=== PATIENT | female | born 1960 | race Caucasian/White ===

== ENCOUNTER 2019-09-23 06:37 | Outpatient (CLI) | payer OTHER, SELFPAY ==
[2019-09-23 07:12] LABS: Hemoglobin A1C 7.2 % (<5.7)
[2019-09-23 07:53] LABS: Anion Gap 9.4 mmol/L (7-16); Blood Urea Nitrogen 18 mg/dL (7-18); Calcium 8.8 mg/dL (8.5-10.1); Carbon Dioxide 29 mmol/L (21-32); Chloride 104 mmol/L (98-108); Estimated Glomerular Filt Rate 43; Glucose 130 mg/dL (70-99); Osmolality Calculated 289 mOsm/kg (285-295); Potassium 4.4 mmol/L (3.5-5.1); Sodium 138 mmol/L (136-145)
== END 2019-09-23 06:38 | disposition home or self-care (01) ==
LOC: CHSLAB 06:39
PROVIDERS: PCP Physician Assistant; Visit Provider Physician Assistant
DX: E11.65 Type 2 diabetes mellitus with hyperglycemia (principal)
CPT/HCPCS: 36415; 80048; 83036

== ENCOUNTER 2019-12-29 12:44 | Emergency (ER) | payer OTHER, SELFPAY ==
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
[2019-12-29 12:55] VITALS: BP 176/98; PULSE 110; RESP 16; TEMP 36.2; O2SAT 100
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
[2019-12-29] MEDS: TETANUS,DIPHTHERIA,AC PERTUSSIS ADULT (0.5 ML) BOOSTRIX IM (15:05)
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
[2019-12-29 16:08] VITALS: BP 170/111; PULSE 117; RESP 12; O2SAT 99
[2019-12-29] MEDS: cloNIDine HCL 0.1 MG TABLET PO (16:08)
[2019-12-29 16:15] VITALS: BP 160/100; PULSE 70; RESP 14; O2SAT 99
--- NOTE | 2019-12-29 16:45 | PC.NURSE ---
FACIAL BONES,CERVICAL SPINE AND BRAIN CT ORDERED BY COTY FRANK MD
== END 2019-12-29 16:15 | disposition home or self-care (01) ==
PROVIDERS: Emergency Provider Emergency Medicine; PCP Family Medicine
DX: S06.0X0A Concussion without loss of consciousness, initial encounter (principal); S01.81XA Laceration without foreign body of other part of head, initial encounter; V43.52XA Car driver injured in collision with other type car in traffic accident, initial encounter; Z23 Encounter for immunization
CPT/HCPCS: 12015; 70450; 70486; 72125; 90471; 90715; 99284; A9270

== ENCOUNTER 2020-03-31 07:15 | Outpatient (CLI) | payer OTHER, SELFPAY ==
[2020-03-31 08:25] LABS: Hemoglobin A1C 7.3 % (<5.7)
[2020-03-31 08:37] LABS: Alanine Aminotransferase 26 U/L (14-59); Alkaline Phosphatase 91 U/L (46-116); Anion Gap 9 mmol/L (8-16); Aspartate Amino Transferase 16 U/L (15-37); Bilirubin,Total 0.5 mg/dL (0.00-1.00); Blood Urea Nitrogen 21 mg/dL (7-18); Calcium 8.7 mg/dL (8.5-10.1); Carbon Dioxide 28 mmol/L (21-32); Chloride 102 mmol/L (98-108); Cholesterol 166 mg/dL (0-200); Estimated Glomerular Filt Rate 45; Glucose 154 mg/dL (70-99); HDL Direct 36 mg/dL (40-60); LDL Cholesterol Calculated 104 mg/dL (<130); Osmolality Calculated 294 mOsm/kg (285-295); Potassium 4.4 mmol/L (3.5-5.1); Sodium 139 mmol/L (136-145); Total Protein 7.3 g/dL (6.4-8.2); Triglycerides 130 mg/dL (0-150)
[2020-03-31 10:36] LABS: Creatinine Urine 74.27 mg/dL (40-278)
[2020-03-31 10:51] LABS: MALB Creatinine Ratio 17.5 mg/g (0-30); Microalbumin Urine Random < 13.0 mg/L
== END 2020-03-31 07:16 | disposition home or self-care (01) ==
LOC: CHSLAB 07:16
PROVIDERS: PCP Family Medicine; Visit Provider Physician Assistant
DX: E11.65 Type 2 diabetes mellitus with hyperglycemia (principal)
CPT/HCPCS: 36415; 80053; 80061; 82043; 83036

== ENCOUNTER 2020-04-06 13:12 | Outpatient (CLI) | payer OTHER, SELFPAY ==
--- NOTE | ~2020-04-06 | MM_ITS ---
EXAMINATION: MM screening riya BI w neeta HISTORY: Screening TECHNIQUE: Craniocaudal and mediolateral oblique 3-D tomosynthesis images were obtained and synthetic 2-D images were generated. CAD analysis was submitted and interpreted. COMPARISON: 11/18/2017 BREAST PARENCHYMAL COMPOSITION: There are scattered areas of fibroglandular density. FINDINGS: There is no evidence of suspicious mass, calcification, or architectural distortion to sugg est malignancy in either breast. There has been no suspicious interval change. IMPRESSION: 1. No mammographic evidence of malignancy. 2. Recommend routine screening mammography in one year. BI-RADS Category 1: Negative Reviewed, dictated and finalized at location A. IRATORY PRACTITIONER
== END 2020-04-06 13:13 | disposition home or self-care (01) ==
LOC: CHSIMG 13:14
PROVIDERS: PCP Family Medicine; Visit Provider Family Medicine
DX: Z12.31 Encounter for screening mammogram for malignant neoplasm of breast (principal)
CPT/HCPCS: 77063; 77067

== ENCOUNTER 2020-10-25 09:59 | Outpatient (CLI) | payer OTHER, SELFPAY ==
[2020-10-25 10:30] LABS: Hemoglobin A1C 6.7 % (<5.7)
[2020-10-25 10:41] LABS: Anion Gap 11 mmol/L (8-16); Blood Urea Nitrogen 20 mg/dL (7-18); Calcium 9.2 mg/dL (8.5-10.1); Carbon Dioxide 27 mmol/L (21-32); Chloride 103 mmol/L (98-108); Estimated Glomerular Filt Rate 48; Glucose 107 mg/dL (70-99); Osmolality Calculated 294 mOsm/kg (285-295); Potassium 4.6 mmol/L (3.5-5.1); Sodium 141 mmol/L (136-145)
== END 2020-10-25 10:00 | disposition home or self-care (01) ==
LOC: CHSLAB 10:02
PROVIDERS: PCP Family Medicine; Visit Provider Physician Assistant
DX: E11.65 Type 2 diabetes mellitus with hyperglycemia (principal)
CPT/HCPCS: 36415; 80048; 83036

== ENCOUNTER 2020-12-03 08:13 | Emergency (ER) | payer OTHER, SELFPAY ==
--- NOTE | ~2020-12-03 | XR_ITS ---
XR knee RT 3V 12/03/2020 08:51 Indication: Right knee pain Procedure: 5 views right knee Comparison: No prior studies for comparison. Findings: Mild osteoarthritis of the right knee. No fracture, subluxation or dislocation. No signific ant joint effusion. Impression: 1: No acute fracture. Reviewed, dictated and finalized at location A. Impression: 1: No acute fracture.
[2020-12-03 08:17] VITALS: BP 175/99; PULSE 102; RESP 16; TEMP 36.4; O2SAT 97
--- NOTE | 2020-12-03 08:26 | ED.EXTPRO ---
HPI - Extremity Problem General Chief complaint: Extremity Injury, Lower Stated complaint: R pain in knee and calf Time Seen by Provider: 12/03/20 08:15 Source: patient Mode of arrival: wheelchair Limitations: no limitations History of Present Illness HPI Narrative: 60-year-old woman with a history of type 2 diabetes comes in today complaining of right posterior knee pain which has been present for last 3 weeks. She denies injuries or falls. She states the pain is worse when she is sitting or lying with the knee in extension or with weight-bearing. She denies prior similar symptoms. The pain radiates to her calf. She has had no calf swelling, shortness breath, cough, chest pain, numbness or weakness. Complaint: joint paint Onset (ago): week(s) (3) Pain Consistency: constant Location: right and knee Quality: aching and sharp Radiation: distal Relieving factors: other (Position) Exacerbating factors: weight bearing and other (Extension) Associated symptoms: denies other symptoms Related Data Home Medications Medication Instructions Recorded Confirmed metformin 1,000 mg PO BID 12/03/20 12/03/20 Allergies Allergy/AdvReac Type Severity Reaction Status Date / Time azithromycin Allergy Intermediate Verified 02/27/12 11:45 Review of Systems Review of Systems: All systems reviewed & are unremarkable except as noted in HPI and below Constitutional: Constitutional: Denies chills and Denies fever(s) ENT: Reports nasal congestion and Denies sore throat Cardiovascular: Cardiovascular: Denies chest pain and Denies radiating jaw, neck or arm pain Respiratory: Respiratory: Denies cough and Denies dyspnea Musculoskeletal: Musculoskeletal: Denies back pain, Reports arthralgias and Denies joint swelling Integumentary/Breasts: Skin/Breast: Denies pruritus, Denies erythema and Denies rash Neurologic: Denies vertigo, Denies syncope and Denies focal weakness Hematologic/Lymphatic: Hematologic/Lymphatic: Denies easy bleeding and Denies easy bruising PMFSH Past Medical History Medical History (Updated 12/03/20 @ 10:03 by Familia Argueta MD) Type 2 diabetes mellitus Social History Social History Second hand tobacco smoke exposure: No Exam Const: General: healthy appearing and alert Orientation/consciousness: patient oriented x3 Limitations: no limitations Other: [id number] acute distress. Resp: Effort & Inspection: normal respiratory effort and not labored Auscultation: clear to auscultation bilaterally, no rales, no rhonchi and no wheezes Cardio: Rate: regular rate Rhythm: regular rhythm Heart sounds: no murmurs Skin: General skin exam: normal color, no jaundice and no pallor Rashes: no rashes Neuro: General: No patient oriented x3, No moves all extremities, No no focal motor deficits and No CN's II-XI intact bilaterally Speech: No normal speech Extrem: General: normal to inspection and no clubbing, cyanosis or edema Other: No tenderness, swelling, masses or erythema of the right calf or lower leg. Minimal tenderness palpation of the joint. Mild tenderness with palpation of the popliteal fossa. Psych: Appearance: grossly normal and well kempt Mental Status: mental status grossly normal Affect: normal affect Attitude: cooperative Thought content: Yes Normal thought content present Course Vital Signs Vital signs: Vital Signs Temperature 36.4 C 12/03/20 08:17 Pulse Rate 102 H 12/03/20 08:17 Respiratory Rate 16 12/03/20 08:17 Blood Pressure 175/99 H 12/03/20 08:17 Pulse Oximetry 97 12/03/20 08:17 Temperature 36.4 C 12/03/20 08:17 Pulse Rate 102 H 12/03/20 08:17 Respiratory Rate 16 12/03/20 08:17 Blood Pressure 175/99 H 12/03/20 08:17 Pulse Oximetry 97 12/03/20 08:17 MDM - Extremity (Nontraumatic) Differential Diagnosis Differential diagnosis: Likely deep vein thrombosis of lower extremity and ot
[2020-12-03 09:03] LABS: Basophils Absolute Auto 0.05 K/mm3 (0.00-0.10); Basophils Percent Auto 0.7 % (0.0-1.0); Eosinophils Absolute Auto 0.22 K/mm3 (0.02-0.50); Eosinophils Percent Auto 3.2 % (1.0-6.0); Hematocrit 39.4 % (35.0-49.0); Hemoglobin 13.3 g/dL (12.0-15.0); Immature Granulocyte Absolute 0.02 K/mm3 (0.00-0.00); Immature Granulocyte Percent A 0.3 % (0.0-0.0); Lymphocytes Absolute Auto 1.62 K/mm3 (1.10-4.50); Lymphocytes Percent Auto 23.9 % (18.0-42.0); Mean Corpuscular HGB Conc 33.8 g/dL (32.0-36.0); Mean Corpuscular Hemoglobin 29.8 pg (27.0-31.0); Mean Corpuscular Volume 88.1 fL (78.0-102.0); Mean Platelet Volume 9.6 fl (9.2-11.8); Monocytes Absolute Auto 0.38 K/mm3 (0.10-0.90); Monocytes Percent Auto 5.6 % (2.0-11.0); Neutrophils Absolute Auto 4.5 K/mm3 (1.7-7.2); Neutrophils Percent Auto 66.3 % (50.0-70.0); Platelet Count Result 188 K/mm3 (150-420); Red Blood Count 4.47 M/mm3 (4.20-5.40); Red Cell Distribution Width 12.8 % (11.6-14.4); White Blood Count 6.8 K/mm3 (4.8-10.8)
[2020-12-03 09:18] LABS: Alanine Aminotransferase 30 U/L (14-59); Albumin Level 4.1 g/dL (3.4-5.0); Alkaline Phosphatase 84 U/L (46-116); Anion Gap 11 mmol/L (8-16); Aspartate Amino Transferase 14 U/L (15-37); Bilirubin,Total 0.7 mg/dL (0.00-1.00); Blood Urea Nitrogen 14 mg/dL (7-18); Calcium 8.7 mg/dL (8.5-10.1); Carbon Dioxide 28 mmol/L (21-32); Chloride 104 mmol/L (98-108); Estimated CRCL calculation 49 ml/min; Estimated Glomerular Filt Rate 53; Glucose 144 mg/dL (70-99); Osmolality Calculated 299 mOsm/kg (285-295); Potassium 3.9 mmol/L (3.5-5.1); Sodium 143 mmol/L (136-145); Total Protein 7.8 g/dL (6.4-8.2)
[2020-12-03 09:20] LABS: CRP < 0.2 mg/dL (0.0-0.9)
[2020-12-03 09:29] LABS: D Dimer 0.47 mg/L (0.19-0.50); Partial Thromboplastin Time 24.2 SEC (23.90-30.70); Prothrombin Time 10.3 Seconds (9.50-12.10)
[2020-12-03 10:05] LABS: Erythrocyte Sedimentation Rate 33 mm/hr (0-20)
[2020-12-03 10:07] VITALS: BP 187/99; PULSE 80; RESP 14; O2SAT 100
== END 2020-12-03 10:11 | disposition home or self-care (01) ==
PROVIDERS: Emergency Provider Emergency Medicine; PCP Family Medicine
DX: M25.561 Pain in right knee (principal); E11.9 Type 2 diabetes mellitus without complications
CPT/HCPCS: 36415; 73562; 80053; 85025; 85380; 85610; 85652; 85730; 86140; 99283; L1830

== ENCOUNTER 2020-12-16 06:51 | Outpatient (CLI) | payer OTHER, SELFPAY | END 2020-12-16 06:52 | disposition home or self-care (01) | LOC: CHSIMG 06:52 | PROVIDERS: PCP Family Medicine; Visit Provider Physician Assistant | DX: S86.1 Injury of other muscle(s) and tendon(s) of posterior muscle group at lower leg level (principal); Z53.8 Procedure and treatment not carried out for other reasons | CPT/HCPCS: 99199 ==

== ENCOUNTER 2021-03-24 07:44 | Outpatient (CLI) | payer OTHER, SELFPAY ==
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
== END 2021-03-24 07:45 | disposition home or self-care (01) ==
PROVIDERS: PCP Family Medicine; Visit Provider Physician Assistant
DX: S86.811A Strain of other muscle(s) and tendon(s) at lower leg level, right leg, initial encounter (principal); M17.11 Unilateral primary osteoarthritis, right knee
CPT/HCPCS: 73721

== ENCOUNTER 2021-04-07 07:16 | Outpatient (CLI) | payer OTHER, SELFPAY ==
[2021-04-07 07:50] LABS: Creatinine Urine 95.36 mg/dL (40-278); MALB Creatinine Ratio 13.6 mg/g (0-30); Microalbumin Urine Random < 13.0 mg/L
[2021-04-07 08:31] LABS: Alanine Aminotransferase 22 U/L (14-59); Alkaline Phosphatase 84 U/L (46-116); Anion Gap 9 mmol/L (8-16); Aspartate Amino Transferase 13 U/L (15-37); Bilirubin,Total 0.5 mg/dL (0.00-1.00); Blood Urea Nitrogen 21 mg/dL (7-18); Calcium 9.1 mg/dL (8.5-10.1); Carbon Dioxide 27 mmol/L (21-32); Chloride 102 mmol/L (98-108); Cholesterol 165 mg/dL (0-200); Estimated Glomerular Filt Rate 54; Glucose 131 mg/dL (70-99); HDL Direct 37 mg/dL (40-60); LDL Cholesterol Calculated 109 mg/dL (<130); Osmolality Calculated 291 mOsm/kg (285-295); Potassium 4.3 mmol/L (3.5-5.1); Sodium 138 mmol/L (136-145); Total Protein 7.5 g/dL (6.4-8.2); Triglycerides 94 mg/dL (0-150)
== END 2021-04-07 07:17 | disposition home or self-care (01) ==
LOC: CHSLAB 07:19
PROVIDERS: Visit Provider Physician Assistant
DX: E11.65 Type 2 diabetes mellitus with hyperglycemia (principal)
CPT/HCPCS: 36415; 80053; 80061; 82043; 83036

== ENCOUNTER 2021-04-16 16:52 | Outpatient (RCR) | payer OTHER, SELFPAY ==
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
== END 2021-05-10 09:25 | disposition home or self-care (01) ==
LOC: CHSPT 16:52
PROVIDERS: Visit Provider Physician Assistant
DX: S83.203S Other tear of unspecified meniscus, current injury, right knee, sequela (principal); M17.10 Unilateral primary osteoarthritis, unspecified knee
CPT/HCPCS: 97110; 97161; 97530

== ENCOUNTER 2022-01-22 07:04 | Outpatient (CLI) | payer OTHER, SELFPAY ==
[2022-01-22 08:12] LABS: Hemoglobin A1C 6.8 % (<5.7)
[2022-01-22 08:28] LABS: Alanine Aminotransferase 17 U/L (14-59); Albumin Level 3.8 g/dL (3.4-5.0); Alkaline Phosphatase 84 U/L (46-116); Anion Gap 9 mmol/L (8-16); Aspartate Amino Transferase 14 U/L (15-37); Bilirubin,Total 0.6 mg/dL (0.00-1.00); Blood Urea Nitrogen 16 mg/dL (7-18); Calcium 8.7 mg/dL (8.5-10.1); Carbon Dioxide 28 mmol/L (21-32); Chloride 106 mmol/L (98-108); Estimated Glomerular Filt Rate 46; Glucose 145 mg/dL (70-99); Osmolality Calculated 300 mOsm/kg (285-295); Potassium 4.5 mmol/L (3.5-5.1); Sodium 143 mmol/L (136-145); Total Protein 7.3 g/dL (6.4-8.2)
== END 2022-01-22 07:05 | disposition home or self-care (01) ==
LOC: CHSLAB 07:07
PROVIDERS: PCP Family Medicine; Visit Provider Physician Assistant
DX: E11.65 Type 2 diabetes mellitus with hyperglycemia (principal)
CPT/HCPCS: 36415; 80053; 83036

== ENCOUNTER 2022-01-28 14:48 | Outpatient (CLI) | payer OTHER, SELFPAY ==
--- NOTE | 2022-01-28 15:04 | ECG_ITS ---
Rate 99 KS 177 QRSd 93 QT 353 QTc 454 --Jerome-- P 41 QRS -18 T 0 SINUS RHYTHM BASELINE ARTIFACT PRESENT WARNING: DATA QUALITY MAY AFFECT INTERPRETATION NO PREVIOUS ECG AVAILABLE FOR COMPARISON Electronically Signed On 01-30-2022 13:15:43 HEALTH PLAN SPECIALIST by Duyen SPENCE
[2022-01-28 16:05] LABS: Anion Gap 5 mmol/L (8-16); Blood Urea Nitrogen 11 mg/dL (7-17); Carbon Dioxide 30 mmol/L (22-30); Chloride 102 mmol/L (98-107); Estimated Glomerular Filt Rate 56; Glucose 154 mg/dL (65-110); Potassium 3.8 mmol/L (3.4-5.0); Sodium 137 mmol/L (137-145)
== END 2022-01-28 14:49 | disposition home or self-care (01) ==
PROVIDERS: Anesthesiology; PCP Family Medicine; Visit Provider Surgery
DX: E11.9 Type 2 diabetes mellitus without complications (principal); Z01.818 Encounter for other preprocedural examination
CPT/HCPCS: 36415; 80048; 93005

== ENCOUNTER 2022-02-12 01:14 | Day surgery (SDC) | payer OTHER, SELFPAY ==
[2022-01-14 15:17] VITALS: BMI 33.3
--- NOTE | 2022-01-14 15:21 | PC.NURSE ---
Addendum entered by Cheryl Cosme RN 01/14/22 15:33: PT TO STOP VITAMIN 01/20/22 Original Note: Report to the Outpatient Waiting Room, entrance under the green pavilion located off [facility], at time 11:00 on date 01/24/22. Planned Procedure Time: 1:00. Time changes happen often and if your time is changed the preop area will call you the afternoon before. - You and your visitor will be asked to self-screen and do not enter if you have any COVID symptoms. - Only one visitor is requested with a max of two and NO children visitors are allowed at this time. - The patient visitor may be requested to leave or wait in car when not with patient due to distancing restrictions. - A mask is optional within the hospital. Patients may ONLY have clear liquids THE DAY BEFORE SURGERY (TUESDAY 01/23) - No food from midnight until time of surgery Take the following medications with a SIP of water the morning of surgery: NONE Medications to discontinue per physician: DICLOFENAC Date to take last dose: PER DR. BLUE FLESANTIAGO ENEMA AND DULCOLAX PER DR. BLUE'S INSTRUCTIONS Please no make-up, nail kyrgyz, hairspray, perfume, deodorant, or body powder the day of surgery. No jewelry (including any body piercings) or valuables the day of surgery, leave them at home. Please take a shower or bath the night before, or the morning of, surgery with an antibacterial soap. Wear comfortable, loose fitting clothing. - Jewelry must be removed prior to entering the operating room. Rings and piercings that are not removed may be cut off. - The hospital will not accept responsibility for valuables. - Please leave all valuables, including medications, at home the day of surgery. If you are going home after surgery, a licensed medical van driver must drive you home. - NO public transportation without another adult if you receive anesthesia. - We recommend that an adult stay with you for 24 hours following discharge. - We also recommend that you do not drive, make important decision, drink alcoholic beverages, or take any drugs that were not prescribed by your health care provider for at least 24 hours after your discharge time. Follow any additional instructions given to you from your surgeon. If you or anyone in your household have experienced Covid symptoms in the past week, please notify your surgeon or the nurse liaison at the phone number below for possible testing. Telephone instructions given to PT - DARIUS WILLHOIT and asked if any additional questions and then verbalized understanding. Patient advised to call surgeon office or pre surgery nurse liaison [phone] if any additional questions.
--- NOTE | 2022-01-23 14:52 | PC.NURSE ---
Addendum entered by Cheryl Cosme RN 02/07/22 14:32: PT TO ARRIVE AT 0730 ON 02/12 FOR SURGERY AT 0930. Original Note: Report to the Outpatient Waiting Room, entrance under the green pavilion located off [facility], at time 10:00 on date 02/06/22. Planned Procedure Time: 12:00. Time changes happen often and if your time is changed the preop area will call you the afternoon before. - You and your visitor will be asked to self-screen and do not enter if you have any COVID symptoms. - Only one visitor is requested with a max of two and NO children visitors are allowed at this time. - The patient visitor may be requested to leave or wait in car when not with patient due to distancing restrictions. - A mask is optional within the hospital. Patients may have clear liquids ONLY THE DAY BEFORE SURGERY (MONDAY 02/05) - No food OR DRINK from midnight until time of surgery Take the following medications with a SIP of water the morning of surgery: NONE Medications to discontinue per physician: VITAMIN Date to take last dose: 02/02/[address] BLUE ABOUT STOPPING DICLOFENAC FLEETS ENEMA AND DULCOLAX PER DR. BLUE'S INSTRUCTIONS Please no make-up, nail czech, hairspray, perfume, deodorant, or body powder the day of surgery. No jewelry (including any body piercings) or valuables the day of surgery, leave them at home. Please take a shower or bath the night before, or the morning of, surgery with an antibacterial soap. Wear comfortable, loose fitting clothing. - Jewelry must be removed prior to entering the operating room. Rings and piercings that are not removed may be cut off. - The hospital will not accept responsibility for valuables. - Please leave all valuables, including medications, at home the day of surgery. If you are going home after surgery, a licensed maintenance truck driver must drive you home. - NO public transportation without another adult if you receive anesthesia. - We recommend that an adult stay with you for 24 hours following discharge. - We also recommend that you do not drive, make important decision, drink alcoholic beverages, or take any drugs that were not prescribed by your health care provider for at least 24 hours after your discharge time. Follow any additional instructions given to you from your surgeon. If you or anyone in your household have experienced Covid symptoms in the past week, please notify your surgeon or the nurse liaison at the phone number below for possible testing. Telephone instructions given to PT Prudence GARCIAS and asked if any additional questions and then verbalized understanding. Patient advised to call surgeon office or pre surgery nurse liaison [phone] if any additional questions.
--- NOTE | 2022-01-23 14:54 | PC.NURSE ---
Pt states no changes in medications or health history other than Covid positive 01/15/22. Pt states symptoms have resolved except for a small amount of drainage. Medical history updated in EMR. New pre-op instructions reviewed with pt. Pt denies further questions at this time.
--- NOTE | 2022-02-11 17:41 | P.PNAN_ITS ---
Anes - Eval Pre Procedure Procedure: Operation Date: 02/12/22 09:30 Proposed Procedures p Placement of Seton Anal Fistula, Possible Fistulotomy - Kaden Bowling MD Date/Time: 02/11/22 17:41 Pre Op Diagnosis: anal fistula Patient Data Age: 61 Gender: F Height: 1.57 m Weight: 82.55 kg Allergies Allergy/AdvReac Type Severity Reaction Status Date / Time azithromycin Allergy Intermediate Rash Verified 01/23/22 14:50 Home Medications Medication Instructions Recorded Confirmed Type metformin 500 mg tablet 1,000 mg PO BID 12/03/20 01/23/22 History diclofenac sodium 50 mg 50 mg PO DAILY PRN Pain 01/14/22 01/23/22 History tablet,delayed release multivitamin 1 tablet PO DAILY 01/14/22 01/23/22 History Patient hx anesthesia problems: none Family hx anesthesia problems: none Results Review: All pre-operative results and documents have been reviewed as part of the pre- operative evaluation. [facility] Past Medical History Medical History Type 2 diabetes mellitus Surgical History Surgical History History of ear surgery Hx of tubal ligation Family History Family History Other Diabetes mellitus Social History Social History Smoking status: Never smoker Second hand tobacco smoke exposure: No Alcohol intake: never Substance use: never Substance use type: does not use Living arrangements: with family Spiritual care concerns: No Exam Day of Procedure 02/11/22 17:41
--- NOTE | 2022-02-12 07:27 | P.PNAN_ITS ---
Anes - Eval Final PreProcedure Day of Procedure 02/12/22 07:27 Patient weight: obese Heart: regular rate and rhythm Lungs: clear to auscultation Airway: Mallampati scale class II Neurological: alert and oriented Last oral intake: >/= 8 hours ASA classification: III Emergent: no Anesthetic plan: proceed Anesthesia type and monitoring: general ETT and standard monitoring Results Review: All pre-operative results and documents have been reviewed as part of the pre- operative evaluation. Informed Consent: The patient's anesthetic plan and its attendant risks and benefits were discussed with the patient/family/POA. Questions were solicited and answers provided to the satisfaction of the patient/family/POA.
[2022-02-12 07:52] LABS: Glucose Point of Care 93 mg/dl (65-105)
[2022-02-12] MEDS: ACETAMINOPHEN 500 MG TABLET 1000 MG PO (08:00)
[2022-02-12] MEDS: KETOROLAC 15 MG/ML VIAL (*BKC) IV PUSH (08:00)
[2022-02-12] MEDS: LACTATED RINGERS 1,000 ML 30 ML IV CONT ×2 (08:00→10:19)
[2022-02-12 08:06] VITALS: BP 150/77; PULSE 95; RESP 14; TEMP 36.6; O2SAT 98
--- NOTE | 2022-02-12 08:52 | WPDHPUPDATE1 ---
History and Physical Update Update Date/Time: 02/12/22 08:52 History and Physical has been reviewed, including an updated exam of the patient. There are NO changes in the patient's condition. Risks, benefits, and alternatives have been discussed and questions answered. Patient agrees to proceed with procedure.
[2022-02-12] MEDS: ceFAZolin 2 GM/D5W 50 ML 2 GM/50 ML BAG IVPB (09:40)
[2022-02-12] MEDS: BUPIVACAINE/EPINEPHRINE 0.5% 10 ML VIAL INFILTRATE (10:09)
--- NOTE | 2022-02-12 10:22 | P.OP_ITS ---
Procedure Note - Detailed Date of Procedure 02/12/22 Pre-op Diagnosis anal fistula Post-op Diagnosis Other (Left anterior quadrant intersphincteric fistula) Procedure Performed Anal fistulotomy Surgeon Kaden Bowling MD Box Blank Machine Feeder Adrianna Huber [facility] Anesthesia General and Local (0.5% Marcaine with epinephrine) Indications Patient experienced a perianal infection in early December. This persisted with an inflammatory area of skin just outside the rectum. She was seen in the [facility] and appeared to have a left anterior quadrant fistula in ANO. She is taken to surgery now for treatment. Findings This was a very short straight fistula that was just a little over a cm in length. It was intersphincteric. No other significant findings were noted. Description of Procedure Patient was taken to surgery and induced into general anesthesia. She was then placed in prone bernardino-knife position. The buttocks were taped apart. Prep and drape was carried out. An external opening was noted around an area of inflammatory tissue in the left anterior quadrant, very close to the rectum. A probe was passed in this opening and went easily and directly to the dentate line. This was a straight superficial intersphincteric fistula. Using the cautery, I divided the skin subcutaneous and lower 3rd of the internal sphincter muscle. There was no bleeding. I excised the redundant inflammatory tissue as well. I used cautery to achieve hemostasis. All looked good. Rectum was dressed with Xeroform gauze fluffs and Promise panties. Patient was returned to a supine position, awakened and taken to recovery in good condition. Sponge needle counts were correct x2. Estimated Blood Loss -5 Drains No Packing No Pathology None sent Complications No immediate complications Condition Stable Disposition PACU [facility] Billing Surgery - Charge Forward: Surgery Billing (Anal fistulotomy)
[2022-02-12 10:25] VITALS: BP 115/59; PULSE 79; RESP 16; TEMP 36.4; O2SAT 100
[2022-02-12 10:40] VITALS: BP 123/71; PULSE 81; RESP 16; O2SAT 100
[2022-02-12 10:41] LABS: Glucose Point of Care 94 mg/dl (65-105)
[2022-02-12 10:55] VITALS: BP 134/78; PULSE 80; RESP 13; O2SAT 99
[2022-02-12 11:02] VITALS: BP 148/69; PULSE 85; RESP 14
[2022-02-12 11:30] VITALS: BP 140/75; PULSE 79; RESP 14
== END 2022-02-12 11:53 | disposition home or self-care (01) ==
PROVIDERS: PCP Family Medicine; Visit Provider Surgery
PROC: (CPT 46275; principal; 2022-02-12 09:30)
DX: K60.3 Anal fistula (principal); E11.9 Type 2 diabetes mellitus without complications; Z79.84 Long term (current) use of oral hypoglycemic drugs; E66.9 Obesity, unspecified; Z68.31 Body mass index [BMI] 31.0-31.9, adult
CPT/HCPCS: 46275; 82948; A9270; J0330; J0690; J1885; J2250; J2405; J2704; J3010; J7120

== ENCOUNTER 2022-05-06 08:19 | Outpatient (CLI) | payer OTHER, SELFPAY ==
[2022-05-06 08:58] LABS: Anion Gap 6 mmol/L (8-16); Blood Urea Nitrogen 13 mg/dL (7-17); Calcium 9.3 mg/dL (8.4-10.2); Carbon Dioxide 29 mmol/L (22-30); Chloride 105 mmol/L (98-107); Estimated Glomerular Filt Rate 50; Glucose 156 mg/dL (65-110); Potassium 4.7 mmol/L (3.4-5.0); Sodium 140 mmol/L (137-145)
== END 2022-05-06 08:20 | disposition home or self-care (01) ==
LOC: ANHSURGERY 08:24
PROVIDERS: Anesthesiology; PCP Family Medicine; Visit Provider Surgery
DX: E11.9 Type 2 diabetes mellitus without complications (principal); Z01.818 Encounter for other preprocedural examination
CPT/HCPCS: 36415; 80048

== ENCOUNTER 2022-05-08 01:08 | Day surgery (SDC) | payer OTHER, SELFPAY ==
[2022-05-01 15:11] VITALS: BMI 33.5
--- NOTE | 2022-05-01 15:28 | PC.NURSE ---
Addendum entered by Judith Willis RN 05/02/22 07:48: HOLD YOUR LOSARTAN (ARB) THE MORNING OF SURGERY. PT NOTIFIED. Original Note: Report to the Outpatient Waiting Room, entrance under the green pavilion located off [address], at time _12:00AM_ on date 05/08/22 . Planned Procedure Time: _2:00PM_. Time changes happen often and if your time is changed the preop area will call you the afternoon before. - You and your visitor will be asked to self-screen and do not enter if you have any COVID symptoms. - Only one visitor is requested with a MAX of 2 VISITORS and NO children visitors are allowed at this time. - The patient visitor may be requested to leave or wait in car when not with patient due to distancing restrictions. - A mask is optional within the hospital at this time. Patients may have clear liquids (water, carbonated beverages, clear teas, apple juice) until 3 hours prior to surgery with a maximum of 20 ounces. FOLLOW A CLEAR LIQUID DIET ON FRIDAY. IT MAY BE BEST TO EAT A LIGHT DIET ON FRIDAY ALSO. No food AFTER MIDNIGHT THE NIGHT BEFORE surgery. TAKE DULCOLAX 10MG (2 TABS) ON FRIDAY (05/06) NIGHT AND FRIDAY (05/07) NIGHT. PERFORM A FLEETS ENEMA ON FRIDAY (05/07) NIGHT AND ON FRIDAY (05/08) MORNING OF SURGERY IF YOU CAN TOLERATE. REFRAIN IF RECTAL DISCOMFORT. Take the following medications with a SIP of water the morning of surgery: ___LOSARTAN DO NOT STOP ANY OF YOUR OTHER PRESCRIPTION MEDICATIONS PRIOR TO SURGERY ?EXCEPT THE FOLLOWING Medications to discontinue per physician N/A Date to take last dose N/A Please no make-up, nail turkish, hairspray, perfume, deodorant, or body powder the day of surgery. No jewelry (including any body piercings) or valuables the day of surgery, leave them at home. Please take a shower or bath the night before, or the morning of, surgery. Wear comfortable, loose fitting clothing. - Jewelry must be removed prior to entering the operating room. Rings and piercings that are not removed may be cut off. - The hospital will not accept responsibility for valuables. - Please leave all valuables, including medications, at home the day of surgery. If you are going home after surgery, a licensed driver examiner must drive you home. - NO public transportation without another adult if you receive anesthesia. - We recommend that an adult stay with you for 24 hours following discharge. - We also recommend that you do not drive, make important decision, drink alcoholic beverages, or take any drugs that were not prescribed by your health care provider for at least 24 hours after your discharge time. Follow any additional instructions given to you from your surgeon. If you or anyone in your household have experienced Covid symptoms in the past week, please notify your surgeon or the nurse liaison at the phone number below for possible testing. Telephone instructions given to KANIKA GARCIAS and asked if any additional questions and then verbalized understanding. Patient advised to call surgeon office or pre surgery nurse liaison [phone] if any additional questions.
[2022-05-08 11:12] VITALS: BP 141/84; PULSE 88; RESP 18; TEMP 36.4; O2SAT 98
--- NOTE | 2022-05-08 11:13 | WPDHPUPDATE1 ---
History and Physical Update Update Date/Time: 05/08/22 11:13 History and Physical has been reviewed, including an updated exam of the patient. There are NO changes in the patient's condition. Risks, benefits, and alternatives have been discussed and questions answered. Patient agrees to proceed with procedure.
[2022-05-08] MEDS: ACETAMINOPHEN 500 MG TABLET 1000 MG PO (11:54)
[2022-05-08] MEDS: KETOROLAC 15 MG/ML VIAL (*BKC) IV PUSH (11:55)
[2022-05-08] MEDS: LACTATED RINGERS 1,000 ML 30 ML IV CONT (12:00)
--- NOTE | 2022-05-08 12:14 | P.PNAN_ITS ---
Anes - Initial Pre Proc Eval Procedure: Operation Date: 05/08/22 14:00 Proposed Procedures p Rectal Examination Under Anesthesia, Possible Fistulotomy - Kaden Bowling MD Date/Time: 05/08/22 12:14 Surgeon: Kaden Bowling MD Pre Op Diagnosis: anal fistula Patient Data Age: 62 Gender: F Height: 1.57 m Weight: 80.6 kg Allergies Allergy/AdvReac Type Severity Reaction Status Date / Time azithromycin AdvReac Intermediate Rash Verified 05/08/22 11:30 Home Medications Medication Instructions Recorded Confirmed Type metformin 500 mg tablet 1,000 mg PO BID 12/03/20 05/08/22 History diclofenac sodium 50 mg 50 mg PO DAILY PRN Pain 01/14/22 05/08/22 History tablet,delayed release multivitamin 1 tablet PO DAILY 01/14/22 05/08/22 History mupirocin 2 % topical ointment 1 applic topical BID #22 grams 04/15/22 05/08/22 Rx losartan 25 mg tablet 25 mg PO DAILY 05/01/22 05/08/22 History Patient hx anesthesia problems: none Family hx anesthesia problems: none Results Review: All pre-operative results and documents have been reviewed as part of the pre- operative evaluation. [facility] Past Medical History Medical History (Updated 05/08/22 @ 12:14 by Flako Echeverria MD) Obesity Type 2 diabetes mellitus Surgical History Surgical History Anal fistula Anal fistulotomy on 02/12/22 History of ear surgery Hx of tubal ligation Family History Family History Other Diabetes mellitus Social History Social History Smoking status: Never smoker Second hand tobacco smoke exposure: No Alcohol intake: never Substance use: never Substance use type: does not use Living arrangements: with family Gender identity (if verbalized by the patient): Female Sexual Orientation (if Verbalized by the Patient): Straight or Heterosexual Spiritual care concerns: No Anes - Eval Final PreProcedure Day of Procedure 05/08/22 12:14 Patient weight: obese Heart: regular rate and rhythm Lungs: clear to auscultation Airway: Mallampati scale class II Neurological: alert and oriented Last oral intake: >/= 8 hours ASA classification: III Emergent: no Anesthetic plan: proceed Anesthesia type and monitoring: general GIVS and standard monitoring Results Review: All pre-operative results and documents have been reviewed as part of the pre-o perative evaluation. Informed Consent: The patient's anesthetic plan and its attendant risks and benefits were discussed with the patient/family/POA. Questions were solicited and answers provided to the satisfaction of the patient/family/POA.
[2022-05-08 12:16] LABS: Glucose Point of Care 103 mg/dl (65-105)
[2022-05-08] MEDS: ceFAZolin 2 GM/D5W 50 ML 2 GM/50 ML BAG IVPB (12:57)
[2022-05-08] MEDS: BUPIVACAINE/EPINEPHRINE 0.25% 50 ML VIAL 47 ML INFILTRATE (13:13)
[2022-05-08 13:44] VITALS: BP 144/74; PULSE 87; RESP 14; O2SAT 100
--- NOTE | 2022-05-08 13:57 | P.OP_ITS ---
Procedure Note - Detailed Date of Procedure 05/08/22 Pre-op Diagnosis Nonhealing rectal wound Post-op Diagnosis Other (Nonhealing rectal wound, internal and external hemorrhoids) Procedure Performed Rectal exam under anesthesia, excision right anterior complex internal and external hemorrhoids Surgeon Kaden Bowling MD Desktop Publisher Adrianna Huber [facility] MD Anesthesia MAC (G IV S) and Local (0.25% bupivacaine with epinephrine) Indications The patient underwent a straightforward sphincterotomy of a short intersphincteric anal fistula on 02/12/2022. The resultant wound from the fistulotomy has not healed although several weeks have passed. She has returned to surgery at this time for rectal exam under anesthesia. Some source of persistent infection such as a superficial recurrent fistula, may be the cause. She is taken to surgery now for this purpose to hopefully facilitate healing of this rectal wound. Findings Clean ulcer in the left anterior location, consistent with the area of the fistulotomy. Although there was some inflammatory change, there was no mucus or other exudate of process. The rest of the anal rectal canal appeared normal although adjacent to the residual chronic wound or ulcer, she did have a fairly large complex of internal and external hemorrhoids. These were removed as I was concerned that these may be covering the wound and keeping it from healing. Description of Procedure Patient was taken to surgery and placed in prone bernardino-knife position. The buttocks were taped apart. IV sedation was administered. Prep and drape was carried out. The anal rectal area was inspected 1st. We then used a small Hill-Joe anoscope and checked the anal canal. Findings were as above. The only significant finding was the internal and external hemorrhoids in the right anterior position which were large and could potentially be covering the wound and prevent it from healing. They were directly adjacent to the wound and would hopefully serve as a biopsy as well. Local anesthetic was infiltrated using 20 cc deep subdermal 20 cc intro sphincteric. I then excised the internal and external hemorrhoidal complex in the right anterior location. Cautery was used for hemostasis. The wound was closed with subcuticular interrupted 4-0 Vicryl suture. The apex of the excision site was closed with a 4-0 chromic suture. All looked good. There was no residual bleeding. Wound was dressed with Xeroform gauze, fluffs and tape. Patient was returned to a supine position, awakened and taken to outpatient surgery in good condition. Sponge and needle counts were correct x2. Estimated Blood Loss -10 Drains No Packing No Pathology Yes (Right anterior complex internal and external hemorrhoids) Complications No immediate complications Condition Stable Disposition Same day [facility] Billing Surgery - Charge Forward: Surgery Billing (Rectal exam under anesthesia, excision single complex internal and external hemorrhoids)
[2022-05-08 13:59] LABS: Glucose Point of Care 107 mg/dl (65-105)
[2022-05-08 14:10] VITALS: BP 142/77; PULSE 87; RESP 14; O2SAT 100
[2022-05-08 14:30] VITALS: BP 147/85; PULSE 86; RESP 14
== END 2022-05-08 14:50 | disposition home or self-care (01) ==
PROVIDERS: PCP Family Medicine; Visit Provider Surgery
PROC: (CPT 46255; principal; 2022-05-08 14:00)
DX: T81.89XA Other complications of procedures, not elsewhere classified, initial encounter (principal); K62.6 Ulcer of anus and rectum; K64.8 Other hemorrhoids; K64.4 Residual hemorrhoidal skin tags; Y83.8 Other surgical procedures as the cause of abnormal reaction of the patient, or of later complication, without mention of misadventure at the time of the procedure; E11.9 Type 2 diabetes mellitus without complications; Z79.84 Long term (current) use of oral hypoglycemic drugs; E66.9 Obesity, unspecified; Z68.32 Body mass index [BMI] 32.0-32.9, adult
CPT/HCPCS: 46255; 82948; 88304; A9270; J0690; J1885; J2250; J2704; J3010; J7120

== ENCOUNTER 2022-06-29 08:17 | Outpatient (CLI) | payer OTHER, SELFPAY ==
[2022-06-29 08:44] LABS: Creatinine Urine 170.13 mg/dL (40-278)
[2022-06-29 08:54] LABS: MALB Creatinine Ratio 9.8 mg/g (0-30); Microalbumin Urine Random 16.8 mg/L
[2022-06-29 09:29] LABS: Albumin Level 3.7 g/dL (3.4-5.0); Alkaline Phosphatase 94 U/L (46-116); Anion Gap 9 mmol/L (8-16); Aspartate Amino Transferase 15 U/L (15-37); Bilirubin,Total 0.5 mg/dL (0.00-1.00); Blood Urea Nitrogen 18 mg/dL (7-18); Calcium 8.8 mg/dL (8.5-10.1); Carbon Dioxide 28 mmol/L (21-32); Chloride 104 mmol/L (98-108); Cholesterol 160 mg/dL (0-200); Estimated Glomerular Filt Rate 44; Glucose 129 mg/dL (70-99); HDL Direct 37 mg/dL (40-60); LDL Cholesterol Calculated 106 mg/dL (<130); Osmolality Calculated 295 mOsm/kg (285-295); Potassium 4.7 mmol/L (3.5-5.1); Sodium 141 mmol/L (136-145); Total Protein 7.4 g/dL (6.4-8.2); Triglycerides 84 mg/dL (0-150)
[2022-06-29 09:44] LABS: Alanine Aminotransferase 16 U/L (14-59)
== END 2022-06-29 08:18 | disposition home or self-care (01) ==
PROVIDERS: PCP Family Medicine; Visit Provider Physician Assistant
DX: E11.65 Type 2 diabetes mellitus with hyperglycemia (principal)
CPT/HCPCS: 36415; 80053; 80061; 82043

== ENCOUNTER 2022-07-02 14:48 | Outpatient (CLI) | payer OTHER, SELFPAY ==
[2022-07-12 21:18] LABS: ANCA Screen C-ANCA POS (Negative); Myeloperoxidase Ab <1.0 AI (<1.0); Proteinase-3 Ab <1.0 AI (<1.0); S cerevisiae Ab (IgA) 6.6 U (<=20.0); S cerevisiae Ab (IgG) 5.5 U (<=20.0)
[2022-07-12 21:40] LABS: C-ANCA Titer 1:20 Titer (<1:20); C-ANCA Titer Reflex Chg Test YES
== END 2022-07-02 14:49 | disposition home or self-care (01) ==
PROVIDERS: PCP Family Medicine; Visit Provider Internal Medicine Gastroenterology
DX: K62.89 Other specified diseases of anus and rectum (principal)
CPT/HCPCS: 36415; 86036; 86671

== ENCOUNTER 2022-08-16 05:19 | Day surgery (SDC) | payer OTHER, SELFPAY ==
[2022-08-06 08:17] VITALS: BMI 32.0
[2022-08-16 11:41] VITALS: BP 144/63; PULSE 89; RESP 18; TEMP 36.3; O2SAT 99; BMI 31.4
[2022-08-16] MEDS: LACTATED RINGERS 1,000 ML 150 ML IV CONT (11:44)
--- NOTE | 2022-08-16 11:52 | PM.HPGS ---
History of Present Illness History of Present Illness Consent: Risks, benefits, and alternatives have been discussed and questions answered. Patient agrees to proceed with procedure. Chief complaint: other specified diseases of anus and rectum Narrative: Farhana Russo is a 62 year old female who, after having had a hemorrhoidectomy a few months ago ?has continued to experience discomfort in the rectal area as well as some drainage. It actually is doing much better but occasionally she has a tender spot on right side of her anus.? She has never had diarrhea.? She does not pass blood her stools.? This all began last fall when she developed a small perirectal abscess or fistula.? Since a fistulotomy she has had persistent problems.? Dr. Bowling have observed some inflammation in the rectum when he last examine her, raising the possibility of inflammatory bowel disease Review of Systems Review of Systems: All systems reviewed & are unremarkable except as noted in HPI and below PMFSH Past Medical History Medical History Obesity Type 2 diabetes mellitus Surgical History Surgical History Anal fistula Anal fistulotomy on 02/12/22 History of ear surgery Hx of hemorrhoidectomy 05/08/22 Hx of tubal ligation Family History Family History Other Diabetes mellitus Social History Social History Smoking status: Never smoker Second hand tobacco smoke exposure: No Alcohol intake: never Substance use: never Substance use type: does not use Living arrangements: with family Gender identity (if verbalized by the patient): Female Sexual Orientation (if Verbalized by the Patient): Straight or Heterosexual Spiritual care concerns: No Meds Home Medications and Allergies Home Medications Medication Instructions Recorded Confirmed Type metformin 500 mg tablet 1,000 mg PO BID 12/03/20 08/16/22 History multivitamin 1 tablet PO DAILY 01/14/22 08/16/22 History losartan 25 mg tablet 25 mg PO DAILY 05/01/22 08/16/22 History psyllium husk 3.4 gram/5.4 gram 1 tbsp PO BID #660 grams 05/08/22 08/16/22 Rx oral powder (Metamucil) mineral oil 15 ml PO DAILY 08/06/22 08/16/22 History Allergies Allergy/AdvReac Type Severity Reaction Status Date / Time azithromycin AdvReac Intermediate Rash Verified 08/16/22 11:39 Vital Signs Vital Signs - 24 hr 08/16/22 11:41 Temperature 36.3 C L Pulse Rate 89 Respiratory Rate 18 Blood Pressure 144/63 H Pulse Oximetry 99 Oxygen Delivery Room Air Exam Const: General: alert Orientation/consciousness: patient oriented x3 Resp: Auscultation: clear to auscultation bilaterally Cardio: Rhythm: regular rhythm GI: GI Palp: Yes Soft to palpation and No Tenderness to palpation present (GI) Neuro: General: patient oriented x3 Assessment and Plan Assessment and plan (1) Idiopathic proctitis: Code(s): K62.89 - Other specified diseases of anus and rectum Status: Acute Assessment and Plan: Colonoscopy with possible biopsy or polypectomy or cautery or injection of substances.
[2022-08-16 11:58] LABS: Glucose Point of Care 95 mg/dl (65-105)
--- NOTE | 2022-08-16 12:37 | P.PNAN_ITS ---
Anes - Initial Pre Proc Eval Procedure: Operation Date: 08/16/22 13:00 Proposed Procedures p Colonoscopy - Bigg Delarosa MD Date/Time: 08/16/22 12:37 Surgeon: Bigg Delarosa MD Pre Op Diagnosis: other specified diseases of anus and rectum Patient Data Age: 62 Gender: F Height: 1.57 m Weight: 78 kg Last Vital Signs Temp 97.4 F L 08/16/22 11:41 Pulse 89 08/16/22 11:41 Resp 18 08/16/22 11:41 BP 144/63 H 08/16/22 11:41 Pulse Ox 99 08/16/22 11:41 O2 Del Method Room Air 08/16/22 11:41 Allergies Allergy/AdvReac Type Severity Reaction Status Date / Time azithromycin AdvReac Intermediate Rash Verified 08/16/22 11:39 Home Medications Medication Instructions Recorded Confirmed Type metformin 500 mg tablet 1,000 mg PO BID 12/03/20 08/16/22 History multivitamin 1 tablet PO DAILY 01/14/22 08/16/22 History losartan 25 mg tablet 25 mg PO DAILY 05/01/22 08/16/22 History psyllium husk 3.4 gram/5.4 gram 1 tbsp PO BID #660 grams 05/08/22 08/16/22 Rx oral powder (Metamucil) mineral oil 15 ml PO DAILY 08/06/22 08/16/22 History Laboratory Tests 08/16/22 11:54 POC Capillary Glucose 95 mg/dl (65-105) Patient hx anesthesia problems: none Family hx anesthesia problems: none Results Review: All pre-operative results and documents have been reviewed as part of the pre- operative evaluation. [facility] Past Medical History Medical History Obesity Type 2 diabetes mellitus Surgical History Surgical History Anal fistula Anal fistulotomy on 02/12/22 History of ear surgery Hx of hemorrhoidectomy 05/08/22 Hx of tubal ligation Family History Family History Other Diabetes mellitus Social History Social History Smoking status: Never smoker Second hand tobacco smoke exposure: No Alcohol intake: never Substance use: never Substance use type: does not use Living arrangements: with family Gender identity (if verbalized by the patient): Female Sexual Orientation (if Verbalized by the Patient): Straight or Heterosexual Spiritual care concerns: No Anes - Eval Final PreProcedure Day of Procedure 08/16/22 12:37 Patient weight: obese Heart: regular rate and rhythm Lungs: clear to auscultation Airway: Mallampati scale class II Neurological: alert and oriented Last oral intake: >/= 8 hours ASA classification: III Emergent: no Anesthetic plan: proceed Anesthesia type and monitoring: general GIVS and standard monitoring Results Review: All pre-operative results and documents have been reviewed as part of the pre- operative evaluation. Informed Consent: The patient's anesthetic plan and its attendant risks and benefits were discussed with the patient/family/POA. Questions were solicited and answers provided to the satisfaction of the patient/family/POA.
[2022-08-16 13:27] VITALS: BP 117/55; PULSE 80; RESP 14; O2SAT 100
[2022-08-16 13:37] VITALS: BP 125/72; PULSE 82; RESP 13; O2SAT 100
[2022-08-16 13:47] VITALS: BP 117/65; PULSE 80; RESP 16; O2SAT 100
== END 2022-08-16 13:55 | disposition home or self-care (01) ==
PROVIDERS: PCP Family Medicine; Visit Provider Internal Medicine Gastroenterology
PROC: 0DJD8ZZ Inspection of Lower Intestinal Tract, Via Natural or Artificial Opening Endoscopic (ICD-10-PCS; CPT 45378; principal; 2022-08-16 13:00)
DX: K51.20 Ulcerative (chronic) proctitis without complications (principal); K57.30 Diverticulosis of large intestine without perforation or abscess without bleeding; K64.8 Other hemorrhoids; E11.9 Type 2 diabetes mellitus without complications; E66.9 Obesity, unspecified; Z68.31 Body mass index [BMI] 31.0-31.9, adult; Z79.84 Long term (current) use of oral hypoglycemic drugs
CPT/HCPCS: 45380; 82948; 88305; J2704; J7120

== ENCOUNTER 2023-01-04 07:07 | Outpatient (CLI) | payer OTHER, SELFPAY ==
[2023-01-04 07:38] LABS: Hemoglobin A1C 6.6 % (<5.7)
== END 2023-01-04 07:08 | disposition home or self-care (01) ==
LOC: CHSLAB 07:08
PROVIDERS: PCP Physician Assistant; Visit Provider Physician Assistant
DX: E11.65 Type 2 diabetes mellitus with hyperglycemia (principal)
CPT/HCPCS: 36415; 83036

== ENCOUNTER 2023-05-24 07:46 | Outpatient (CLI) | payer OTHER, MEDICARE, SELFPAY ==
[2023-05-24 08:58] LABS: Hematocrit 30.1 % (35.0-42.0); Hemoglobin 9.3 g/dL (11.7-13.8); Mean Corpuscular HGB Conc 30.9 g/dL (32-36); Mean Corpuscular Hemoglobin 25.8 pg (27.0-31.0); Mean Corpuscular Volume 83.4 fL (78.0-102.0); Platelet Count Result 330 K/mm3 (150-420); Red Blood Count 3.61 M/mm3 (4.20-5.40); White Blood Count 7.1 K/mm3 (4.8-10.8)
[2023-05-24 09:08] LABS: Alanine Aminotransferase 14 U/L (14-59); Albumin Level 2.9 g/dL (3.4-5.0); Alkaline Phosphatase 71 U/L (46-116); Anion Gap 11 mmol/L (4-12); Aspartate Amino Transferase 13 U/L (15-37); Bilirubin,Total 0.5 mg/dL (0.00-1.00); Blood Urea Nitrogen 14 mg/dL (7-18); Calcium 8.8 mg/dL (8.5-10.1); Carbon Dioxide 26 mmol/L (21-32); Chloride 101 mmol/L (98-108); Estimated Glomerular Filt Rate 37; Glucose 111 mg/dL (70-99); Osmolality Calculated 287 mOsm/kg (285-295); Potassium 4.7 mmol/L (3.5-5.1); Sodium 138 mmol/L (136-145); Total Protein 7.2 g/dL (6.4-8.2)
[2023-05-24 09:41] LABS: Erythrocyte Sedimentation Rate 56 mm/hr (0-20)
[2023-05-27 13:23] LABS: NIL 0.09 IU/mL; Quantiferon TB Plus, 1T NEGATIVE (NEGATIVE); TB1-NIL <0.00 IU/mL; TB2-NIL 0.02 IU/mL
[2023-05-29 03:56] LABS: Hepatitis B Core Ab Total Nonreactive (Nonreactive)
[2023-05-29 04:01] LABS: Hepatitis B Surface Antibody Nonreactive (Nonreactive); Hepatitis B Surface Antigen Nonreactive (Nonreactive)
== END 2023-05-24 07:47 | disposition home or self-care (01) ==
PROVIDERS: PCP Internal Medicine; Visit Provider Internal Medicine Gastroenterology
DX: K62.89 Other specified diseases of anus and rectum (principal)
CPT/HCPCS: 36415; 80053; 85027; 85652; 86140; 86480; 86704; 86706; 87340

== ENCOUNTER 2023-06-14 12:26 | Outpatient (CLI) | payer OTHER, MEDICARE, SELFPAY ==
[2023-06-20 23:04] LABS: Calprotectin, Stool 500 mcg/g
== END 2023-06-14 12:27 | disposition home or self-care (01) ==
PROVIDERS: PCP Internal Medicine; Visit Provider Internal Medicine Gastroenterology
DX: K62.89 Other specified diseases of anus and rectum (principal)
CPT/HCPCS: 83993

== ENCOUNTER 2023-07-12 07:56 | Outpatient (CLI) | payer OTHER, MEDICARE, SELFPAY ==
[2023-07-12 08:24] LABS: Hemoglobin A1C 6.3 % (<5.7)
[2023-07-12 09:18] LABS: Alanine Aminotransferase 12 U/L (14-59); Albumin Level 2.7 g/dL (3.4-5.0); Alkaline Phosphatase 75 U/L (46-116); Anion Gap 8 mmol/L (4-12); Aspartate Amino Transferase 13 U/L (15-37); Bilirubin,Total 0.3 mg/dL (0.00-1.00); Blood Urea Nitrogen 14 mg/dL (7-18); Calcium 8.6 mg/dL (8.5-10.1); Carbon Dioxide 28 mmol/L (21-32); Chloride 102 mmol/L (98-108); Cholesterol 123 mg/dL (0-200); Estimated Glomerular Filt Rate 43; Glucose 106 mg/dL (70-99); HDL Direct 37 mg/dL (40-60); LDL Cholesterol Calculated 70 mg/dL (<130); Osmolality Calculated 286 mOsm/kg (285-295); Potassium 4.3 mmol/L (3.5-5.1); Sodium 138 mmol/L (136-145); Total Protein 7.3 g/dL (6.4-8.2); Triglycerides 80 mg/dL (0-150)
== END 2023-07-12 07:57 | disposition home or self-care (01) ==
LOC: CHSLAB 07:59
PROVIDERS: Visit Provider Physician Assistant
DX: E11.65 Type 2 diabetes mellitus with hyperglycemia (principal)
CPT/HCPCS: 36415; 80053; 80061; 83036

== ENCOUNTER 2023-08-26 10:12 | Emergency (ER) | payer OTHER, MEDICARE, SELFPAY ==
--- NOTE | ~2023-08-26 | US_ITS ---
EXAMINATION: US abdomen limited DATE: 08/26/2023 14:30 INDICATION: Right upper quadrant tenderness. TECHNIQUE: Multiple grayscale and Doppler ultrasound images of the abdomen were obtained. COMPARISON: CT dated 08/26/2023 FINDINGS: The pancreatic head and body are normal in appearance. The pancreatic tail is not visualized. The vi sualized proximal inferior vena cava is normal. Liver has normal contour, with a smooth surface. Ther e is increased parenchymal echogenicity and coarsened echotexture consistent with diffuse hepatic wicho atosis. No liver lesion identified. No intrahepatic biliary duct dilation suspected. Portal venous f low was seen in the hepatopetal, normal direction and has normal Doppler waveform. Wall echo shadow c omplex with the gallbladder decompressed around a few large echogenic and posteriorly shadowing stone s. No abnormal gallbladder wall thickening or pericholecystic fluid to suggest acute cholecystitis. S onographic Alex sign was reported as negative by the legal writing professor. The common bile duct measures 3 t o 4 mm in diameter which is normal. IMPRESSION: 1. Normal appearing gallbladder decompressed around multiple large central gallstones. No evident britany iary obstruction and no abnormal gallbladder wall thickening, pericholecystic fluid or sonographic Mu rphy sign to suggest acute cholecystitis. 2. Diffuse hepatic steatosis. Reviewed, dictated and finalized at location A. IMPRESSION: 1. Normal appearing gallbladder decompressed around multiple large central gall stones. No evident biliary obstruction and no abnormal gallbladder wall thicken ing, pericholecystic fluid or sonographic Alex sign to suggest acute cholecys titis. 2. Diffuse hepatic steatosis.
--- NOTE | ~2023-08-26 | CT_ITS ---
CT abdomen pelvis w con Ordering provider: Yo Fish APRN History: 63 years Female with . lower abdominal pain, hx of anal fistula . Comparison: None. Technique: CT abdomen and pelvis with IV and without oral contrast. Automated exposure control and it erative reconstruction technique were employed. The dose-length product was 493.72 mGy-cm. 100 mL Omn ipaque 350 was given IV. Findings: VISUALIZED LOWER CHEST: Normal. UPPER ABDOMINAL ORGANS: Liver: Fat infiltration. Small hypodensity in the right lobe of the fourth near to the diaphragm bradley uring 2.2 cm most likely a cyst. Gallbladder: Cholelithiasis. Slightly thickened wall of the gallbladder. Cholecystitis cannot be excl uded. Clinical correlation advised. Spleen: Normal. Stomach/duodenum: Small sliding hiatus hernia. Pancreas: Normal. Adrenals: Normal. Kidneys: Tiny cyst in the left kidney lower pole. Tiny stone in the left kidney lower pole. PELVIC ORGANS: The bladder is normal. Large cystic mass is seen extending from the pelvis to the abdomen which measures 10 x 15 x 14.6 cm. Thin septae are seen in the lower part of the cyst. BOWEL AND MESENTERY: Colon: Diverticulitis versus colitis is seen in the rectum, sigmoid and descending colon with surroun ding fat stranding. No definite abscess formation seen. Normal appendix. Small Bowel: Normal. No obstruction. Peritoneum/mesentery: No free air or free fluid. No mesenteric lymphadenopathy. RETROPERITONEUM: Mild atheromatous disease of the abdominal aorta. No retroperitoneal lymphadenopat hy. MUSCULOSKELETAL: Superficial soft tissues: The superficial soft tissues are normal. Bones: Age appropriate degenerative changes of the spine. IMPRESSION: 1. Cholelithiasis with thickened wall which may indicate cholecystitis. Clinical correlation advised . 2. Thickened wall of the rectum, sigmoid and descending colon which may indicate colitis versus dive rticulitis. No abscess formation seen. Increased vascularity in the mesentery is seen which raises th e possibility of Crohn's disease or ulcerative colitis. Clinical correlation and if warranted Colonos copy advised. 3. Large cystic mass in the right side of the pelvis the abdominal area which is suggestive of cysti c mass of the ovary. Mesenteric cyst is also possible. Further evaluation advised. 4. Hepatic cyst. Reviewed, dictated and finalized at location A. IMPRESSION: 1. Cholelithiasis with thickened wall which may indicate cholecystitis. Clinic al correlation advised. 2. Thickened wall of the rectum, sigmoid and descending colon which may indica te colitis versus diverticulitis. No abscess formation seen. Increased vascular ity in the mesentery is seen which raises the possibility of Crohn's disease or ulcerative colitis. Clinical correlation and if warranted Colonoscopy advised. 3. Large cystic mass in the right side of the pelvis the abdominal area which is suggestive of cystic mass of the ovary. Mesenteric cyst is also possible. Fu rther evaluation advised. 4. Hepatic cyst.
[2023-08-26 10:27] VITALS: BP 157/69; PULSE 144; RESP 20; TEMP 37.3; O2SAT 100
--- NOTE | 2023-08-26 10:42 | ECG_ITS ---
Test Date: 2023-08-26 10:48:19 Measurements Intervals [place] Rate: 129 P: 47 MT: 141 QRS: -29 QRSD: 76 T: 32 QT: 288 QTc: 422 Interpretive Statements SINUS TACHYCARDIA POOR R WAVE PROGRESSION BORDERLINE T WAVE ABNORMALITY- ANT/INF LEADS ABNORMAL ECG No previous ECG available for comparison Electronically Signed On 08-26-2023 11:00:47 CDT by Sruya Guevara D.O.
--- NOTE | 2023-08-26 10:47 | ED.GENADULT ---
HPI - General Adult General Chief complaint: Nausea/Vomiting/Diarrhea Stated complaint: n/v/d Time Seen by Provider: 08/26/23 10:38 History of Present Illness HPI narrative: 63-year-old female history of diabetes, hypertension and a perirectal abscess presents to the emergency room for evaluation of lower abdominal pain, not feeling well and 1 episode of vomiting. Record review shows that she developed the perirectal abscess and underwent a fistulotomy by Dr. Bowling in 2022. Patient has been on oral mesalamine until recently, where Dr. Miller for he was placed on rectal suppository mesalamine. Patient reports of rectal discharge which is common for her. Associated with lower abdominal pain. Denies dysuria, urinary frequency urgency. Related Data Home Medications Medication Instructions Recorded Confirmed metformin 500 mg tablet 1,000 mg PO BID 12/03/20 08/16/22 losartan 25 mg tablet 25 mg PO DAILY 05/01/22 08/16/22 Allergies Allergy/AdvReac Type Severity Reaction Status Date / Time azithromycin AdvReac Intermediate Rash Verified 05/01/23 13:29 Review of Systems Review of Systems: ROS unremarkable except for noted in HPI PMFSH Past Medical History Medical History Obesity Type 2 diabetes mellitus Surgical History Surgical History Anal fistula Anal fistulotomy on 02/12/22 History of ear surgery Hx of hemorrhoidectomy 05/08/22 Hx of tubal ligation Family History Family History Other Diabetes mellitus Social History Social History Smoking status: Never smoker Second hand tobacco smoke exposure: No Alcohol intake: never Substance use: never Substance use type: does not use Living arrangements: with family Gender identity (if verbalized by the patient): Female Sexual Orientation (if Verbalized by the Patient): Straight or Heterosexual Spiritual care concerns: No Exam Narrative: GENERAL: Well-appearing, well-nourished, no physical limitations, and in no acute distress. HEAD: Normocephalic, atraumatic. EYES: Conjunctivae normal, PERRLA and EOMI. CHEST: Clear to auscultation. No respiratory distress. No wheezes rales or rhonchi. HEART: Regular rate and rhythm. No murmur heard. Normal peripheral pulses. ABDOMEN: Soft, nontender, nondistended, normal active bowel sounds. BACK: No CVA tenderness EXTREMITIES: Normal range of motion. No edema. No clubbing or cyanosis SKIN: Warm, dry, no rash. No noted wounds NEURO: No focal deficits. Alert and oriented x3. MAEW. CN's II-XI intact bilaterally, normal gait PSYCH: Cooperative. Normal mood and affect. Course Vital Signs Vital signs: Vital Signs Temperature 37.3 C 08/26/23 10:27 Pulse Rate 144 H 08/26/23 10:27 Respiratory Rate 08/26/23 10:27 Blood Pressure 157/69 H 08/26/23 10:27 Pulse Oximetry 08/26/23 10:27 Oxygen Delivery Room Air 08/26/23 10:27 Temperature 37.3 C 08/26/23 10:27 Pulse Rate 144 H 08/26/23 10:27 Respiratory Rate 08/26/23 10:27 Blood Pressure 157/69 H 08/26/23 10:27 Pulse Oximetry 08/26/23 10:27 Oxygen Delivery Room Air 08/26/23 10:27 Medical Decision Making Vital Signs Vital Signs: Vital Signs Temperature 37.3 C 08/26/23 10:27 Pulse Rate 144 H 08/26/23 10:27 Respiratory Rate 08/26/23 10:27 Blood Pressure 157/69 H 08/26/23 10:27 Pulse Oximetry 08/26/23 10:27 Oxygen Delivery Room Air 08/26/23 10:27 Temperature 37.3 C 08/26/23 10:27 Pulse Rate 144 H 08/26/23 10:27 Respiratory Rate 08/26/23 10:27 Blood Pressure 157/69 H 08/26/23 10:27 Pulse Oximetry 08/26/23 10:27 Oxygen Delivery Room Air 08/26/23 10:27 Lab Data 08/26/23 10:58 08/26/23 10:58
[2023-08-26 11:07] LABS: Basophils Percent Auto 0.3 % (0.2-1.2); Eosinophils Percent Auto 0.2 % (0-4.4); Hemoglobin 8.9 g/dL (12.0-15.0); Immature Granulocyte Absolute 0.04 K/mm3 (0.00-0.031); Immature Granulocyte Percent A 0.3 % (0-0.5); Lymphocytes Percent Auto 4.7 % (18.3-44.2); Mean Corpuscular HGB Conc 29.7 g/dl (32-36); Mean Corpuscular Hemoglobin 23.6 pg (26-34); Mean Corpuscular Volume 79.6 fl (80-100); Mean Platelet Volume 8.5 fl (7.4-10.4); Monocytes Absolute Auto 1.4 K/mm3 (0.1-0.6); Neutrophils Absolute Auto 10.7 K/mm3 (1.3-6.7); Neutrophils Percent Auto 83.5 % (45.5-73.1); Platelet Count Result 422 k/mm3 (150-375); Red Blood Count 3.77 M/mm3 (4.2-5.4); Red Cell Distribution Width 16.2 % (11.5-14.5); White Blood Count 12.8 K/mm3 (4.5-10.0)
[2023-08-26 11:18] LABS: Lactic Acid Reflex 3.3 mmol/L (0.7-2.0)
[2023-08-26 11:19] LABS: Alanine Aminotransferase 10 U/L (6-35); Albumin Level 3.5 g/dL (3.5-5.1); Alkaline Phosphatase 85 U/L (38-126); Anion Gap 12 mmol/L (4-12); Aspartate Amino Transferase 18 U/L (14-36); Bilirubin,Total 0.6 mg/dL (0.2-1.3); Blood Urea Nitrogen 16 mg/dL (7-17); Calcium 8.2 mg/dL (8.4-10.2); Carbon Dioxide 22 mmol/L (22-30); Chloride 99 mmol/L (98-107); Estimated CRCL calculation 35 ml/min; Estimated Glomerular Filt Rate 41; Glucose 183 mg/dL (65-110); Potassium 4.2 mmol/L (3.4-5.0); Sodium 133 mmol/L (137-145)
[2023-08-26] MEDS: SODIUM CHLORIDE 0.9% IV 1,000 ML 999 ML IV CONT (11:23)
[2023-08-26 11:30] VITALS: BP 116/72; PULSE 126; RESP 16; TEMP 37.2; O2SAT 98
[2023-08-26 11:30] LABS: Anisocytosis 1+; Hypochromasia 1+; Ovalocytes 1+; Platelet Estimate Adequate (Adequate); Schistocytes None Seen
[2023-08-26 12:30] VITALS: BP 122/52; PULSE 122; RESP 18; TEMP 37.2; O2SAT 100
[2023-08-26 12:49] LABS: Add Urine Microscopic? YES; Appearance Urine Cloudy (Clear); Bacteria Urine None Seen /hpf; Bilirubin Urine Negative (Negative); Blood Urine Negative (Negative); Color Urine Yellow (Yellow); Glucose Urine UA Negative (Negative); Ketones Urine Trace mg/dL (Negative); Leukocyte Esterase Ur 3+ LEU/UL (Negative); Need Manual Microscopic Reviewed; Nitrate Urine Negative (Negative); Protein Urine Negative (Negative); RBC Urine 0-2 /hpf (0-2); Specific Grav Ur 1.015 (1.001-1.035); Squamous Epithelial Cell Urine Few /hpf (Few); WBC Urine 51-100 /hpf (0-3)
[2023-08-26 13:30] VITALS: BP 109/58; PULSE 110; RESP 16; TEMP 37.1; O2SAT 99
[2023-08-26 14:04] LABS: Reflex Lactic Acid Yes or No Add Lactic
[2023-08-26 14:04] LABS: Lipase 68 U/L (23-300)
[2023-08-26 14:30] VITALS: PULSE 101; RESP 16; TEMP 37; O2SAT 100
[2023-08-26 14:52] LABS: Lactic Acid 1.4 mmol/L (0.7-2.0)
[2023-08-26 15:28] VITALS: BP 122/55; PULSE 102; RESP 16; TEMP 37.1; O2SAT 100
== END 2023-08-26 15:40 | disposition home or self-care (01) ==
PROVIDERS: Emergency Provider Nurse Practitioner Family
DX: K57.32 Diverticulitis of large intestine without perforation or abscess without bleeding (principal); K80.20 Calculus of gallbladder without cholecystitis without obstruction; N83.201 Unspecified ovarian cyst, right side; E11.9 Type 2 diabetes mellitus without complications; E66.9 Obesity, unspecified; Z68.28 Body mass index [BMI] 28.0-28.9, adult; Z79.84 Long term (current) use of oral hypoglycemic drugs; K76.0 Fatty (change of) liver, not elsewhere classified; R94.31 Abnormal electrocardiogram [ECG] [EKG]; R00.0 Tachycardia, unspecified
CPT/HCPCS: 36415; 74177; 76705; 80053; 81001; 83605; 83690; 85025; 87086; 87088; 93005; 96360; 99284; J7030; Q9967

== ENCOUNTER 2023-09-05 17:18 | Inpatient (IN) | payer OTHER, MEDICARE, SELFPAY ==
[2023-09-05] VITALS (13 sets, daily range): BP systolic 111–141; BP diastolic 60–88; PULSE 96–127; RESP 11–23; TEMP 36.4–37.9; O2SAT 94–100; BMI 28.0; BMI 28.1
--- NOTE | ~2023-09-05 | CT_ITS ---
CT abdomen pelvis w con Ordering provider: Frankie Lyn History: 63 years Female with . ab pain-lower, n/v/d . Comparison: None. Technique: CT abdomen and pelvis with IV and without oral contrast. Radiation reduction technique uti lized. The dose-length product was 441.29 mGy-cm. 100 mL Omnipaque 350 was given IV. Findings: VISUALIZED LOWER CHEST: Normal. UPPER ABDOMINAL ORGANS: Liver: Cyst is seen in the liver segment #7 measures 1.9 x 2 cm. Fat infiltration of the liver. Gallbladder: Cholelithiasis. Slightly edematous wall which may indicate cholecystitis. Clinical corre lation advised. Spleen: Normal. Stomach/duodenum: Small sliding hiatus hernia. Pancreas: Normal. Adrenals: Normal. Kidneys: Stone in the left upper ureter measuring 3 mm. Minimal fullness of the left renal pelvis is seen. PELVIC ORGANS: The bladder is normal. BOWEL AND MESENTERY: Colon: Diverticulitis is seen in the sigmoid colon with no free air.. Minimal fluid is seen adjacent to the junction of descending colon with the sigmoid colon which measures 1.9 x 1.2 cm.. Normal appen david. Small Bowel: Normal. No obstruction. Peritoneum/mesentery: No free air or free fluid. No mesenteric lymphadenopathy. Cystadenoma is again demonstrated most likely a right ovarian which is unchanged from previous examination. RETROPERITONEUM: Mild atheromatous disease of the abdominal aorta. No retroperitoneal lymphadenopat hy. MUSCULOSKELETAL: Superficial soft tissues: The superficial soft tissues are normal. Bones: Age appropriate degenerative changes of the spine. IMPRESSION: 1. Cystadenoma versus mesenteric cyst unchanged from previous examination 2. Diverticulitis with possible small abscess formation is seen in the left abdomen measuring 1.2 x 1.9 CM. Follow-up Sigmoidoscopy is advised. 3. Stone in the left upper ureter with minimal renal pelvis fullness. 4. Cyst in the liver. 5. Cholelithiasis with edematous wall which may indicate cholecystitis clinical correlation advised. Reviewed, dictated and finalized at location A. IMPRESSION: 1. Cystadenoma versus mesenteric cyst unchanged from previous examination 2. Diverticulitis with possible small abscess formation is seen in the left ab domen measuring 1.2 x 1.9 CM. Follow-up Sigmoidoscopy is advised. 3. Stone in the left upper ureter with minimal renal pelvis fullness. 4. Cyst in the liver. 5. Cholelithiasis with edematous wall which may indicate cholecystitis clinica l correlation advised.
--- NOTE | ~2023-09-05 | US_ITS ---
EXAMINATION: US pelvic complete DATE: 09/08/2023 12:08 INDICATION: Cystic right pelvic mass on prior CT TECHNIQUE: Multiple transabdominal and endovaginal sonographic images of the pelvis were obtained. COMPARISON: None. FINDINGS: The uterus measures 7.4 x 2.8 x 4.6 cm. The endometrial complex measures 4 mm in thickness. There is a 12.0 x 11.2 x 15.1 cm complex cystic lesion in the right pelvis. This demonstrates both anechoic a nd very hypoechoic cystic components latter corresponding to minimally greater than simple fluid atte nuation on the prior CT. There are multiple internal thin and thicker septations the latter measuring up to 7 mm. There is also a 3.6 x 2.5 x 1.8 cm hypoechoic solid component within the largest anechoi c loculation of the lesion. No definitive internal vascular flow within the lesion on color Doppler. No evident enhancing soft tissue correlate for the hypoechoic solid component which suggests this cou ld represent clot or other debris. The right and left ovaries are unable to be identified. On the tamera or CT the cystic lesion appears to abut and distort the contours of both the left and right ovaries w hich suggests an ovarian origin but is unclear from which ovary. There is a minimal amount of free fl uid in the pelvis. IMPRESSION: 1. Indeterminate 15.1 x 1.2 x 12.0 cm complex cystic lesion in the pelvis with several thin and thick ened internal septations and hypoechoic solid component but without evident internal vascular flow on color Doppler or enhancing soft tissue component on prior CT location and combined appearance on CT and ultrasound would favor an ovarian neoplasm more likely benign cystadenoma rather than malignant c ystadenocarcinoma. Evolving hemorrhagic cyst could appear similarly however the size would be unusual . Other complex cystic ovarian lesions such as endometrioma, ovarian dermoid tumor, peroneal inclusio n cyst or other extra ovarian complex cystic etiologies would be considered less likely. Reviewed, dictated and finalized at location A. IMPRESSION: 1. Indeterminate 15.1 x 1.2 x 12.0 cm complex cystic lesion in the pelvis with several thin and thickened internal septations and hypoechoic solid component b ut without evident internal vascular flow on color Doppler or enhancing soft ti ssue component on prior CT location and combined appearance on CT and ultrasoun d would favor an ovarian neoplasm more likely benign cystadenoma rather than ma lignant cystadenocarcinoma. Evolving hemorrhagic cyst could appear similarly ho wever the size would be unusual. Other complex cystic ovarian lesions such as e ndometrioma, ovarian dermoid tumor, peroneal inclusion cyst or other extra ovar israel complex cystic etiologies would be considered less likely.
--- NOTE | ~2023-09-05 | US_ITS ---
US abdomen limited INDICATION: Gallstones PROCEDURE: Realtime right upper abdominal ultrasound. COMPARISON: No prior studies for comparison. FINDINGS: The pancreas is normal without focal mass or pancreatic ductal dilation. Liver echotexture is increased, consistent with fatty infiltration. There is nodularity to the liver surface, suspicio us for cirrhosis. There is normal directional flow in the portal vein. There are gallstones. Gallbladder joy are not well delineated. Common bile duct measures 5 mm. No sonographic Alex's sign. IMPRESSION: 1: Cholelithiasis. 2: Fatty infiltration of the liver. Reviewed, dictated and finalized at location B.
--- NOTE | ~2023-09-05 | NM_ITS ---
EXAMINATION: NM hepatobiliary wo pharm DATE: 09/08/2023 14:36 INDICATION: Gallstones and right upper quadrant abdominal pain COMPARISON: None. TECHNIQUE: 5.4 mCi Tc-99m mebrofenin (Choletec) was administered intravenously. Scintigraphic images of the abdomen were obtained for one hour. Additional 4 hour delayed images were obtained. FINDINGS: There is normal clearance of radiotracer from the blood pool. There is homogeneous tracer u ptake by the liver. Activity progresses to the common bile duct duodenum by 10 minutes. No evident g allbladder activity identified throughout at the first hour or on the 4 hour delayed images. IMPRESSION: 1. No activity in the gallbladder which be consistent with acute cholecystitis. There is however no evident wall thickening or pericholecystic inflammatory stranding surrounding the gallbladder on the prior CT which on ultrasound appears to be decompressed around a large gallstone and favor this is du e to chronic cholecystitis and filling of the gallbladder by gallstones. Reviewed, dictated and finalized at location A. IMPRESSION: 1. No activity in the gallbladder which be consistent with acute cholecystitis . There is however no evident wall thickening or pericholecystic inflammatory s tranding surrounding the gallbladder on the prior CT which on ultrasound appear s to be decompressed around a large gallstone and favor this is due to chronic cholecystitis and filling of the gallbladder by gallstones.
--- NOTE | ~2023-09-05 | XR_ITS ---
XR chest 2V 09/09/2023 09:21 Indication: Hypertension Procedure: 2 view chest Comparison: 12/30/2008 Findings: Heart size normal. There is left basilar atelectasis/scarring. No focal pneumonia, pleural effusion or pneumothorax. Impression: 1: Left basilar atelectasis/scarring. Reviewed, dictated and finalized at location B. Impression: 1: Left basilar atelectasis/scarring.
--- NOTE | 2023-09-05 17:40 | PC.NURSE ---
Pt unable to give urine sample at this time
[2023-09-05 17:44] LABS: Basophils Percent Auto 0.5 % (0.2-1.2); Eosinophils Percent Auto 0.1 % (0-4.4); Hematocrit 32.2 % (37.0-47.0); Hemoglobin 9.7 g/dL (12.0-15.0); Immature Granulocyte Absolute 0.05 K/mm3 (0.00-0.031); Immature Granulocyte Percent A 0.6 % (0-0.5); Lymphocytes Absolute Auto 0.71 K/mm3 (0.9-3.2); Lymphocytes Percent Auto 8.8 % (18.3-44.2); Mean Corpuscular HGB Conc 30.1 g/dl (32-36); Mean Corpuscular Hemoglobin 23.5 pg (26-34); Mean Corpuscular Volume 78.2 fl (80-100); Mean Platelet Volume 8.6 fl (7.4-10.4); Monocytes Percent Auto 12.2 % (2.6-8.5); Neutrophils Absolute Auto 6.3 K/mm3 (1.3-6.7); Neutrophils Percent Auto 77.8 % (45.5-73.1); Platelet Count Result 403 k/mm3 (150-375); Red Blood Count 4.12 M/mm3 (4.2-5.4); Red Cell Distribution Width 16.2 % (11.5-14.5); White Blood Count 8.1 K/mm3 (4.5-10.0)
[2023-09-05 17:53] LABS: Alanine Aminotransferase 12 U/L (6-35); Albumin Level 3.4 g/dL (3.5-5.1); Alkaline Phosphatase 91 U/L (38-126); Anion Gap 12 mmol/L (4-12); Aspartate Amino Transferase 20 U/L (14-36); Bilirubin,Total 0.6 mg/dL (0.2-1.3); Blood Urea Nitrogen 20 mg/dL (7-17); Calcium 8.4 mg/dL (8.4-10.2); Carbon Dioxide 25 mmol/L (22-30); Chloride 93 mmol/L (98-107); Estimated CRCL calculation 36 ml/min; Estimated Glomerular Filt Rate 45; Glucose 150 mg/dL (65-110); Lipase 106 U/L (23-300); Potassium 3.8 mmol/L (3.4-5.0); Sodium 130 mmol/L (137-145)
--- NOTE | 2023-09-05 18:33 | ED.GENADULT ---
HPI - General Adult General Chief complaint: Nausea/Vomiting/Diarrhea Stated complaint: weakness Time Seen by Provider: 09/05/23 17:39 History of Present Illness HPI narrative: 63-year-old female present to the emergency department for evaluation for persistent abdominal pain, persistent nausea vomiting, abdominal mass and weight loss. Patient was initially diagnosed with an ovarian mass, patient did have follow-up with surgery and is ultimately going to have follow-up with Dr. Garcia as outpatient on Friday. Patient was evaluated in the emergency department approximate 10 days ago diagnose with cholelithiasis, cystadenoma and diverticulitis. Patient was started on Augmentin and did have follow-up with surgery as outpatient. Patient returns to the emergency department today complaining of continued decreased p.o. intake, and worsening abdominal discomfort. Related Data Home Medications Medication Instructions Recorded Confirmed metformin 500 mg tablet 1,000 mg PO BID 12/03/20 09/03/23 losartan 25 mg tablet 25 mg PO DAILY 05/01/22 09/03/23 Allergies Allergy/AdvReac Type Severity Reaction Status Date / Time azithromycin AdvReac Intermediate Rash Verified 09/03/23 09:13 Review of Systems Review of Systems: All systems reviewed & are unremarkable except as noted in HPI and below PMFSH Past Medical History Medical History Obesity Type 2 diabetes mellitus Surgical History Surgical History Anal fistula Anal fistulotomy on 02/12/22 History of ear surgery Hx of hemorrhoidectomy 05/08/22 Hx of tubal ligation Family History Family History Other Diabetes mellitus Social History Social History (Updated 09/03/23 @ 09:15 by Janis Tirado MA) Smoking status: Never smoker Second hand tobacco smoke exposure: No Alcohol intake: never Substance use: never Substance use type: does not use Do You Feel Safe in your Home?: Yes Lack of Transportation: No Lack of Food: Never True Current Housing: I Have Housing Concerned About Future Housing: No Difficulty Paying Gas/Electric Bills: Decline to Answer Difficulty Paying for Meds: No Currently Unemployed: No Education: Associate Degree Difficulty w/ Childcare or Family Care: No Living arrangements: with family Occupation/Education: occupation Gender identity (if verbalized by the patient): Female Sexual Orientation (if Verbalized by the Patient): Straight or Heterosexual Spiritual care concerns: No Exam Narrative: APPEARANCE: Well appearing, no pain, no distress, well-nourished. HEAD: normocephalic, atraumatic. EYES: PERRLA/EOMI, conjunctivae clear. NOSE: Normal no drainage EARS:TMS clear with good light reflex. THROAT: Pharynx clear, no exudate. NECK: Supple. No adenopathy, no masses. RESPIRATORY: Airway patent, respirations nonlabored. Clear to auscultation bilaterally, no rales, rhonchi, wheezing. CARDIOVASCULAR: Regular rate and rhythm without murmurs rubs or gallops. ABDOMINAL: Normal bowel sounds, soft abdomen but lower abdominal tenderness to palpation MUSCULOSKELETAL: Moves all extremities. Strength/ROM intact, No edema, No calf tenderness. NEURO: Alert. Cranial nerves II through XII intact. Good gait. Good coordination SKIN: Warm, dry. Normal Color Course Course Emergency Course: Patient was admitted to the hospitalist, started on antibiotics for possible abdominal abscess secondary to diverticulitis, possible infected stone, surgery is consulted and urology was consulted. Vital Signs Vital signs: Vital Signs Temperature 100.2 F H 09/05/23 17:24 Pulse Rate 115 H 09/05/23 17:24 Respiratory Rate 11 L 09/05/23 17:24 Blood Pressure 131/62 09/05/23 17:24 Pulse Oximetry 99 09/05/23 17:24 Oxygen Delivery Room Air 09/05/23 17:2
[2023-09-05 18:56] LABS: Influenza A QL RT-PCR Negative (Negative); Influenza B QL RT-PCR Negative (Negative); RSV RNA, RT-PCR Negative (Negative); SARS-CoV-2 RNA PCR Negative (Negative)
--- NOTE | 2023-09-05 19:09 | PC.NURSE ---
pt attempting to provide urine sample
[2023-09-05] MEDS: PIPERACILLN/TAZ 3.375GM/NS50ML 3.375 GM/50 ML BAG IVPB (20:00)
[2023-09-05 20:14] LABS: Appearance Urine Turbid (Clear); Bacteria Urine 4+ /hpf; Bilirubin Urine Negative (Negative); Blood Urine 3+ (Negative); Color Urine Yellow (Yellow); Glucose Urine UA Negative (Negative); Ketones Urine Negative (Negative); Leukocyte Esterase Ur 2+ LEU/UL (Negative); Nitrate Urine Negative (Negative); Protein Urine 1+ mg/dL (Negative); RBC Urine 51-100 /hpf (0-2); Specific Grav Ur > 1.045 (1.001-1.035); Squamous Epithelial Cell Urine Few /hpf (Few); WBC Urine >100 /hpf (0-3)
[2023-09-05 20:15] LABS: Need Manual Microscopic Reviewed
[2023-09-05 20:17] LABS: Add Urine Microscopic? YES
--- NOTE | 2023-09-05 20:33 | ECG_ITS ---
Test Date: 2023-09-06 07:40:13 Measurements Intervals Line [place] Rate: 97 P: 38 NM: 156 QRS: -25 QRSD: 89 T: -3 QT: 335 QTc: 427 Interpretive Statements SINUS RHYTHM DELAYED PRECORDIAL R/S TRANSITION NONSPECIFIC T-WAVE ABNORMALITY- ANTEROLAT/INF LEADS BORDERLINE ECG Compared to ECG 08/26/2023 10:48:19 HEART RATE HAS DECREASED Electronically Signed On 09-06-2023 09:08:59 CDT by Surya Guevara D.O.
--- NOTE | 2023-09-05 20:36 | PM.IMHP ---
H&P: HPI History of Present Illness Date/Time: 09/05/23 20:36 Chief Complaint: Nausea, vomiting, abdominal pain Narrative: 63-year-old female with a past medical history of microcytic anemia type 2 diabetes mellitus, inflammatory colitis, prior anal fistulectomy and hemorrhoidectomy in 2022 who presented to the ER with nausea vomiting abdominal pain since mother's Day. The patient reports that she has been having significant months of abdominal trouble since she had a rectal abscess complicated by anal fistula requiring fistulectomy in January 2022 with subsequent nonhealing wound hemorrhoidectomy in April of 2022. She had a subsequent colonoscopy in July of 2022 that demonstrated biopsy results of chronic inactive colitis with granulomas. She was started on mesalamine at that time. She reports that her weight back in 2021 when all of her symptoms started was about 183 lb. She reports that she thinks she has lost about 10 lb a year for the next year or 2.. However her has noted marked weight loss since June. The patient reports that around mother's she began having increased lower abdominal cramping associated with soft stools. She reports that the soft stools have been ongoing since 2021 but have been more soft and often times mushy recently. She has also noticed intermittent episodes of increased mucus in her stools. She has also noticed intermittent blood in the mucus of her stools recently. She reports intermittent fecal incontinence since her diagnosis of inflammatory colitis. She has to wear pads due to her symptoms. Since June she has also been having intermittent episodes of vomiting. She reports that she has multiple episodes of vomiting that her becoming more frequent and hour associated with dry heaves pure. She is nauseous much of the time and has markedly decreased appetite. She denies any difficulty swallowing or sensation of dysphagia. But she has noticed sensation of heartburn that occurs usually 2 hours after she eats. She denies any hematemesis or coffee-ground emesis. She has been having intermittent low-grade temperatures at least for the last 10-11 days barrier the legs that they have been ongoing for the last 2-3 weeks. She reports that her T-max at home was 100.9. She has been having intermittent episodes of oral ulcers. She came to the ER on August 25 due to not feeling well and had a CT of the abdomen pelvis which demonstrated cholelithiasis with thickened gallbladder wall consistent with cholecystitis, thickened wall the rectum and sigmoid and descending colon which may indicate colitis versus diverticulitis without abscess formation with vascular findings could be consistent with Crohn's disease and a large cystic mass in the right pelvis concerning for mass of the ovary or mesenteric cyst. Patient subsequent right upper quadrant ultrasound normal. Gallbladder with multiple large central gallstones without evidence of biliary obstruction. Also demonstrated hepatic steatosis. Patient was discharged home on Augmentin and dexamethasone elixer for stomatitis and possible diverticulitis. Patient reports her symptoms did improve initially with antibiotic therapy but then recur a few days after antibiotics have been discontinued. She received her 1st course of antibiotics with Flagyl at the end of July in her 2nd course as discussed previously. Also over the last 10 days or so she has noticed the development of dysuria and increased urinary frequency and urgency. She denies any hematuria. Patient has follow-up as outpatient scheduled with Dr. Becker on the for evaluation of her cystic mass. She reports that she has been postmenopausal. Review of Systems Review of Systems: 12 systems were reviewed with pertinent positives and negatives per HPI. Except as documented in the HPI, all other systems were reviewed and are negative. [facility] Past Medical History Medical History (Updated 09/06/23 @ 02:28 by Gino
[2023-09-05] MEDS: SODIUM CHLORIDE 0.9% IV 1,000 ML 999 ML IV CONT (21:01)
[2023-09-05] MEDS: ACETAMINOPHEN 325 MG TABLET 650 MG PO (21:01)
[2023-09-05] MEDS: HYDROmorphone HCL INJ (*CRX) 1 MG/ML SYR 0.5 MG IV PUSH (21:07)
[2023-09-05] MEDS: ONDANSETRON INJ 4 MG/2 ML VIAL IV PUSH (21:07)
--- NOTE | 2023-09-05 21:40 | PC.NURSE ---
dr franco at bedside for assessment.
[2023-09-05 22:07] LABS: CRP 14.2 mg/dL (<1.0)
--- NOTE | 2023-09-05 22:30 | PC.NURSE ---
unable to chart ns bolus as 1900 - computer auto charting 2000ml. pt only received 1900 ml
--- NOTE | 2023-09-05 23:00 | ADMGEN ---
This patient, Farhana Russo, was admitted to 2 Medical Room 244-. Patient/family oriented to hospital policies and general routines including ID bracelet, bed and alarms, visiting hours, pain management, procedures, bathroom and other care routines, personal items, smoking policy, room service/diet, and visiting hours. Information on how to activate the Rapid Response Team has been discussed. Patient/Family are encouraged to report perceived risks to care and to ask questions if they do not understand what they are told or what they should do.
[2023-09-05 23:18] LABS: Lactic Acid Reflex 0.8 mmol/L (0.7-2.0)
[2023-09-06] VITALS (10 sets, daily range): BP systolic 114–133; BP diastolic 49–60; PULSE 85–96; RESP 12–18; TEMP 36.4–36.6; O2SAT 97–99
[2023-09-06] MEDS: HYDROmorphone HCL INJ (*CRX) 1 MG/ML SYR 0.5 MG IV PUSH (05:41)
[2023-09-06] MEDS: SODIUM CHLORIDE 0.9% IV 1,000 ML 100 ML IV CONT ×2 (05:42→16:27)
[2023-09-06 05:48] LABS: Glucose Point of Care 130 mg/dl (65-105)
[2023-09-06 06:20] LABS: Hematocrit 32.1 % (37.0-47.0); Hemoglobin 9.5 g/dL (12.0-15.0); Mean Corpuscular HGB Conc 29.6 g/dl (32-36); Mean Corpuscular Hemoglobin 23.6 pg (26-34); Mean Corpuscular Volume 79.9 fl (80-100); Mean Platelet Volume 8.6 fl (7.4-10.4); Platelet Count Result 355 k/mm3 (150-375); Red Blood Count 4.02 M/mm3 (4.2-5.4); Red Cell Distribution Width 16.4 % (11.5-14.5); White Blood Count 8.7 K/mm3 (4.5-10.0)
[2023-09-06 06:38] LABS: Carbon Dioxide 22 mmol/L (22-30); Chloride 99 mmol/L (98-107); Potassium 3.3 mmol/L (3.4-5.0); Sodium 133 mmol/L (137-145)
[2023-09-06 06:39] LABS: Alanine Aminotransferase 11 U/L (6-35); Albumin Level 3.1 g/dL (3.5-5.1); Alkaline Phosphatase 85 U/L (38-126); Anion Gap 12 mmol/L (4-12); Aspartate Amino Transferase 17 U/L (14-36); Bilirubin,Total 0.6 mg/dL (0.2-1.3); Blood Urea Nitrogen 17 mg/dL (7-17); Estimated CRCL calculation 40 ml/min; Estimated Glomerular Filt Rate 50; Glucose 122 mg/dL (65-110)
[2023-09-06 06:42] LABS: Iron 19 ug/dL (37-170)
[2023-09-06 06:51] LABS: Percent Iron Saturation 12 % (20-50)
[2023-09-06 07:39] LABS: Folic Acid 5.9 ng/mL (2.76->20)
[2023-09-06 07:54] LABS: Band Neutrophils Percent 21 % (0-6); Lymphocytes Absolute Manual 2.17 K/mm3 (1.1-4.5); Metamyelocytes Percent 1 %; Monocytes Absolute Manual 0.17 K/mm3 (0.1-0.90); Monocytes Percent Manual 2 % (3-9); Neutrophils Absolute Manual 6.26 K/mm3 (1.7-7.2); Neutrophils Percent Manual 51 % (46-73); Total Cells Counted 100
[2023-09-06 07:55] LABS: Anisocytosis 1+; Ovalocytes 1+; Platelet Estimate Adequate (Adequate); Schistocytes None Seen
[2023-09-06] MEDS: PIPERACILLIN/TAZ 2.25G/NS 50ML 2.25 GM/50 ML BAG IVPB ×4 (07:55→23:03)
--- NOTE | 2023-09-06 08:23 | PM.CNGS ---
Assessment and Plan Assessment and plan (1) Left lower quadrant abdominal pain: Code(s): R10.32 - Left lower quadrant pain Status: Acute Assessment and Plan: CT scan suggests acute diverticulitis. She certainly has extensive diverticulosis. With her history of idiopathic proctitis and potential inflammatory bowel disease, I am not sure if we are actually treating diverticulitis. Will consult Dr. Miller from Gastroenterology for his opinion. For now, continue IV Zosyn antibiotics. I will follow along with you. If this is diverticulitis, I do not see any reason that should not resolve with antibiotic therapy. (2) Vomiting: Qualifiers: Vomiting type: unspecified Nausea presence: with nausea Qualified Code(s): R11.2 - Nausea with vomiting, unspecified Code(s): R11.10 - Vomiting, unspecified Status: Acute Assessment and Plan: Vomited yesterday but no nausea today. Has no appetite. (3) Unintentional weight loss of more than 10% body weight within 6 months: Code(s): R63.4 - Abnormal weight loss Status: Acute (4) Ovarian cystic mass: Qualifiers: Laterality: right Qualified Code(s): N83.201 - Unspecified ovarian cyst, right side Code(s): N83.209 - Unspecified ovarian cyst, unspecified side Status: Acute Assessment and Plan: Noted on CT scan and assumed to be right ovarian cystadenoma. Has appointment to see Dr. Garcia on Friday. May need gynecological opinion while hospitalized. (5) Type 2 diabetes mellitus: Qualifiers: Diabetes mellitus halfway insulin use: without halfway use Diabetes mellitus complication status: without complication Qualified Code(s): E11.9 - Type 2 diabetes mellitus without complications Code(s): E11.9 - Type 2 diabetes mellitus without complications Status: Chronic (6) Idiopathic proctitis: Code(s): K62.89 - Other specified diseases of anus and rectum Status: Chronic Assessment and Plan: Has been taking mesalamine suppositories and prior to that oral mesalamine. More recently on both oral and suppositories. History of Present Illness Consult details Consult date: 09/06/23 Reason for consult: abdominal pain Requesting physician: Frankie Lyn MD Narrative: Patient is a 63-year-old woman who is well known to me from some rectal surgery performed in January of 2022 and additional rectal surgery in April of 2022. These surgeries were complicated by very poor healing and evidence of proctitis. I eventually referred her to Dr. Delarosa. He performed colonoscopy which also showed proctitis. Biopsies showed inactive colitis with granulomas. She has been treated primarily with mesalamine and has been seen by Dr. Miller as well. She has had more recent problems with lower abdominal pain since early June. Surprisingly, there are no CT scans in our system prior to 11 days ago when she went to the emergency room with abdominal pain. CT scan showed an extremely large pelvic cyst assumed to be a right ovarian cystadenoma. It also showed many diverticuli with associated inflammatory changes felt to be either colitis or diverticulitis. Possibility of inflammatory bowel disease was raised. She also was noted to have a stone in her gallbladder but ultrasound did not suggest cholecystitis. She came to the emergency room again yesterday with more left lower quadrant abdominal pain nausea and vomiting. She also reports some weight loss. After her emergency room visit on August 25, she was treated with Augmentin for a week without improvement. Although her white blood cell count was normal in the emergency room, she was tender in the left lower quadrant and repeat CT scan is now felt to be more consistent with acute diverticulitis. There was no change in the large pelvic cyst. She was admitted for her abdominal complaints and I was asked to see her regarding possible diverticulitis and
--- NOTE | 2023-09-06 09:00 | WPDURCON ---
Assessment and Plan Assessment and plan (1) Left ureteral calculus: Code(s): N20.1 - Calculus of ureter Status: Acute Assessment and Plan: At this point time it is nonobstructive in nature and asymptomatic. It is only 3 mm and passable. Would recommend straining urine in initiating tamsulosin daily. If becomes symptomatic would reimage and make decision regarding treatment at that time. Urology Consult Note HPI Date Seen: 09/06/23 Time Seen: 09:00 Requesting Physician: Wilma Ferro DO Primary Care Provider: UNKNOWN,DOCTOR Consult Narrative Reason for consult: 3 mm left proximal ureteral calculus Narrative: Farhana Russo is a 63 year old female who was admitted with diverticulitis and some nausea with vomiting. She has very complicated: History. Also found to have a large right ovarian lesion which is being evaluated by Gynecology. Were asked to see her regarding 3 mm proximal left ureteral calculus. She is asymptomatic from this. Denies any flank pain. She has not had any prior stones. Review of Systems Review of Systems: All systems reviewed & are unremarkable except as noted in HPI and below PMFSH Past Medical History Medical History Chronic anemia Chronic kidney disease Essential hypertension Inflammatory bowel disease (ulcerative colitis) Type 2 diabetes mellitus Surgical History Surgical History Anal fistula Anal fistulotomy on 02/12/22 History of ear surgery Hx of hemorrhoidectomy 05/08/22 Hx of tubal ligation Family History Family History Other Diabetes mellitus Social History Social History Social History: Patient lives with her of 42 years. They had a set of fraternal twins. Their son is healthy. The daughter as congenital heart disease with large ASD that was not identified until she was in her 20s. 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 She is a lifelong nonsmoker and does not drink alcohol or use illicit substances. Code status: Full code (she would not want long-term intubation, tracheostomy or feeding tube) Surrogate decision maker: Sj () Smoking status: Never smoker Second hand tobacco smoke exposure: No Alcohol intake: never Substance use: never Substance use type: does not use Do You Feel Safe in your Home?: Yes Lack of Transportation: No Lack of Food: Never True Current Housing: I Have Housing Concerned About Future Housing: No Difficulty Paying Gas/Electric Bills: No Difficulty Paying for Meds: No Currently Unemployed: No Education: Associate Degree Difficulty w/ Childcare or Family Care: No Living arrangements: with family Occupation/Education: occupation Gender identity (if verbalized by the patient): Female Sexual Orientation (if Verbalized by the Patient): Straight or Heterosexual Spiritual care concerns: No Meds Home Medications and Allergies Home Medications Medication Instructions Recorded Confirmed Type metformin 500 mg tablet 1,000 mg PO BID 12/03/20 09/05/23 History losartan 25 mg tablet 25 mg PO DAILY 05/01/22 09/05/23 History dexamethasone 0.5 mg/5 mL oral 0.5 mg (5 mL) PO TID #237 mL 08/26/23 09/05/23 Rx elixir mesalamine 1,000 mg rectal See Rx Instructions .Route 09/05/23 09/05/23 Rx suppository .COMPLEX #30 ea Allergies Allergy/AdvReac Type Severity Reaction Status Date / Time azithromycin AdvReac Intermediate Rash Verified 09/03/23 09:13 Vital Signs Vital Signs - 24 hr 09/05/23 17:24 09/05/23 18:16 09/05/23 18:40 Temperature 37.9 C H Pulse Rate 115 H 118 H 127 H Respiratory Rate 11 L 18 19 Blood Pressure 131/62 139/62 139/88 Pulse Oximetry 99 100 100 Oxygen Delive
--- NOTE | 2023-09-06 09:55 | PM.IMPN ---
Progress Note: A&P Assessment and Plan (1) Sepsis: Qualifiers: Sepsis type: sepsis due to unspecified organism Sepsis acute organ dysfunction status: without acute organ dysfunction Qualified Code(s): A41.9 - Sepsis, unspecified organism Code(s): A41.9 - Sepsis, unspecified organism Status: Acute Assessment and Plan: Septic on admission with tachycardia, tachypnea. Source of infection felt to be diverticulitis versus possible UTI. Will continue gentle IV fluid hydration and broad-spectrum antibiotics with IV Zosyn. Stool culture, urine culture, blood cultures pending. WBC within normal limits, 8.7. Lactic acid 0.8 (2) Diverticulitis: Code(s): K57.92 - Diverticulitis of intestine, part unspecified, without perforation or abscess without bleeding Status: Acute Assessment and Plan: CT demonstrates diverticulitis with possible small abscess. Appreciate general surgery consultation. Consult to GI has been placed, recommendations appreciated. Continue IV Zosyn as above. Continue NPO diet except ice chips, advance per General surgery/GI recommendations (3) Abnormal finding on urinalysis: Code(s): R82.90 - Unspecified abnormal findings in urine Status: Acute Assessment and Plan: UA abnormal, concerning for possible UTI, though she has no urinary symptoms. Remains on Zosyn as above. Urine culture pending (4) Calculus of proximal right ureter: Code(s): N20.1 - Calculus of ureter Status: Acute Assessment and Plan: Noted to have 3 mm nonobstructing proximal ureter stone. Has been seen in consultation by Urology, recommendations appreciated. Will begin tamsulosin and strain urine and allow for trial of passage. If she becomes symptomatic, will repeat imaging and consider stone treatment as needed (5) Pelvic mass: Code(s): R19.00 - Intra-abdominal and pelvic swelling, mass and lump, unspecified site Status: Acute Assessment and Plan: Large pelvic mass noted on CT felt to be consistent with right ovarian cystadenoma. She is scheduled for follow-up on 09/09/2023 as an outpatient with Dr. Garcia. Consider inpatient consultation based on hospital course (6) Cholelithiasis and acute cholecystitis without obstruction: Code(s): K80.00 - Calculus of gallbladder with acute cholecystitis without obstruction Status: Acute Assessment and Plan: Known issue, recently evaluated as an outpatient by Dr. Regan. Plan is for low-fat diet and holding on any further treatment while evaluating pelvic mass as this was felt to require priority. (7) Microcytic anemia: Code(s): D50.9 - Iron deficiency anemia, unspecified Status: Acute Assessment and Plan: Noted to be anemic since 05/2023. Iron panel completed today with low iron stores. B12 low. Folate normal. Will begin iron supplementation and B12 supplementation. Continue to monitor H&H closely, stable at this time. (8) Hyperosmolar hyponatremia: Code(s): E87.0 - Hyperosmolality and hypernatremia; E87.1 - Hypo-osmolality and hyponatremia Status: Acute Assessment and Plan: Secondary to dehydration. Patient received IV fluid bolus on admission. Sodium improved today, 133. Continue to monitor BMP closely (9) Type 2 diabetes mellitus: Qualifiers: Diabetes mellitus long distance operator insulin use: without long distance operator use Diabetes mellitus complication status: without complication Qualified Code(s): E11.9 - Type 2 diabetes mellitus without complications Code(s): E11.9 - Type 2 diabetes mellitus without complications Status: Chronic Assessment and Plan: Last A1c 6.3 (06/2023) continue to monitor Accu-Cheks q.6h while NPO. Blood sugars stable during admission. Holding on sliding scale insulin while NPO. Hypoglycemic protocol implemented (10) Unintentional weight loss of more than 10% body weight w
[2023-09-06 10:40] LABS: Toxigenic C. Diff NEGATIVE (NEGATIVE)
[2023-09-06] MEDS: POTASSIUM CHLORIDE 20 MEQ ER TABLET 40 MEQ PO (11:18)
[2023-09-06 12:09] LABS: Glucose Point of Care 110 mg/dl (65-105)
--- NOTE | 2023-09-06 13:44 | WPDGICN ---
Assessment and Plan Assessment and plan (1) Diverticulitis: Code(s): K57.92 - Diverticulitis of intestine, part unspecified, without perforation or abscess without bleeding Status: Acute Assessment and Plan: on iv abx, surgery also on board given small abscess with diverticulitis (2) Pelvic mass: Code(s): R19.00 - Intra-abdominal and pelvic swelling, mass and lump, unspecified site Status: Acute Assessment and Plan: she will follow-up with gynecology (3) Idiopathic proctitis: Code(s): K62.89 - Other specified diseases of anus and rectum Status: Chronic Assessment and Plan: treated previously with mesalamine supp I will favor to repeat another colonoscopy in 4-6 weeks after acute issue resolves (4) Vomiting: Qualifiers: Vomiting type: unspecified Nausea presence: with nausea Qualified Code(s): R11.2 - Nausea with vomiting, unspecified Code(s): R11.10 - Vomiting, unspecified Status: Acute (5) Intra-abdominal abscess: Code(s): K65.1 - Peritoneal abscess Status: Acute Assessment and Plan: iv abx GI Consult Note Consult date/time: 09/06/23 13:44 Reason for consult: diverticulitis, h/o proctitis HPI: Farhana Russo is a 63 year old female with history of small perirectal abscess or fistula, underwent fistulotomy by Dr. Bowling, then had colonoscopy 07/[address] Delarosa which revealed inflammation in the rectum.? Biopsies of the rectum and sigmoid colon revealed ?inactive colitis with granulomas?, she received mesalamine suppositories once daily at bedtime that used briefly then oral route but did not help, recently started on suppository again after some anal discharge. Serology for inflammatory bowel disease was negative except that she had a slight elevation of C Anca. Recently again with more abdominal discomfort and nausea, she came to ER 08/26/[address] scan showed an extremely large pelvic cyst assumed to be a right ovarian cystadenoma. It also showed many diverticuli with associated inflammatory changes felt to be either colitis or diverticulitis and treated with augmentin. 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 She came back to the emergency room again with more left lower quadrant abdominal pain, nausea and vomiting. Had repeat CT scan consistent with acute diverticulitis with possible small abscess formation is seen in the left abdomen measuring 1.2 x 1.9 CM. There was no change in the large pelvic cyst. Review of Systems Constitutional: Constitutional: Reports chills Comments: low grade fever Eyes: Eyes: Denies blurry vision ENT: Reports Normal hearing present Cardiovascular: Cardiovascular: Denies chest pain Respiratory: Respiratory: Denies cough Gastrointestinal: Gastrointestinal: Reports abdominal pain and Reports nausea Musculoskeletal: Musculoskeletal: Denies back pain Integumentary/Breasts: Skin/Breast: Denies rash Neurologic: Denies Abnormal speech present Psychiatric: Psychiatric: Denies behavioral changes [facility] Past Medical History Medical History Chronic anemia Chronic kidney disease Essential hypertension Inflammatory bowel disease (ulcerative colitis) Type 2 diabetes mellitus Surgical History Surgical History Anal fistula Anal fistulotomy on 02/12/22 History of ear surgery Hx of hemorrhoidectomy 05/08/22 Hx of tubal ligation Family History Family History Other Diabetes mellitus Social History Social History Social History: Patient lives with her of 42 years. They had a set of fraternal twins. Their son is healthy. The daughter as congenital heart disease with large ASD that was not identified unti
[2023-09-06] MEDS: FERROUS GLUCONATE 324 MG TABLET PO (17:21)
[2023-09-06 17:51] LABS: Glucose Point of Care 102 mg/dl (65-105)
[2023-09-06] MEDS: MESALAMINE 1,000 MG SUPP.RECT 1000 MG RECTAL (21:02)
[2023-09-06 23:10] LABS: Glucose Point of Care 85 mg/dl (65-105)
[2023-09-07] VITALS (9 sets, daily range): BP systolic 120–140; BP diastolic 49–60; PULSE 84–97; RESP 16–20; TEMP 36.6–37.2; O2SAT 98–100
[2023-09-07] MEDS: SODIUM CHLORIDE 0.9% IV 1,000 ML 100 ML IV CONT ×2 (03:23→14:35)
[2023-09-07] MEDS: PIPERACILLIN/TAZ 2.25G/NS 50ML 2.25 GM/50 ML BAG IVPB ×2 (05:01→12:03)
[2023-09-07 05:08] LABS: Glucose Point of Care 79 mg/dl (65-105)
[2023-09-07 06:00] LABS: Hematocrit 25.9 % (37.0-47.0); Hemoglobin 7.7 g/dL (12.0-15.0); Mean Corpuscular HGB Conc 29.7 g/dl (32-36); Mean Corpuscular Hemoglobin 23.8 pg (26-34); Mean Corpuscular Volume 80.2 fl (80-100); Mean Platelet Volume 8.5 fl (7.4-10.4); Platelet Count Result 279 k/mm3 (150-375); Red Blood Count 3.23 M/mm3 (4.2-5.4); Red Cell Distribution Width 16.6 % (11.5-14.5); White Blood Count 7.5 K/mm3 (4.5-10.0)
[2023-09-07 06:09] LABS: Alanine Aminotransferase 8 U/L (6-35); Albumin Level 2.4 g/dL (3.5-5.1); Alkaline Phosphatase 69 U/L (38-126); Anion Gap 10 mmol/L (4-12); Aspartate Amino Transferase 18 U/L (14-36); Bilirubin,Total 0.4 mg/dL (0.2-1.3); Blood Urea Nitrogen 16 mg/dL (7-17); Calcium 7.9 mg/dL (8.4-10.2); Carbon Dioxide 19 mmol/L (22-30); Chloride 104 mmol/L (98-107); Estimated CRCL calculation 48 ml/min; Estimated Glomerular Filt Rate > 60; Glucose 80 mg/dL (65-110); Potassium 3.7 mmol/L (3.4-5.0); Sodium 133 mmol/L (137-145)
[2023-09-07 06:36] LABS: Band Neutrophils Percent 20 % (0-6); Lymphocytes Absolute Manual 1.72 K/mm3 (1.1-4.5); Metamyelocytes Percent 1 %; Monocytes Absolute Manual 0.22 K/mm3 (0.1-0.90); Monocytes Percent Manual 3 % (3-9); Neutrophils Absolute Manual 5.47 K/mm3 (1.7-7.2); Neutrophils Percent Manual 53 % (46-73); Platelet Estimate Adequate (Adequate); Total Cells Counted 100
[2023-09-07 06:37] LABS: Schistocytes None Seen
[2023-09-07] MEDS: TAMSULOSIN HCL 0.4 MG CAPSULE PO (08:58)
[2023-09-07] MEDS: CYANOCOBALAMIN 1,000 MCG TABLET 1000 MCG PO (08:58)
[2023-09-07] MEDS: FERROUS GLUCONATE 324 MG TABLET PO ×2 (12:05→17:03)
[2023-09-07 12:08] LABS: Glucose Point of Care 71 mg/dl (65-105)
--- NOTE | 2023-09-07 12:11 | WPDUROPN2 ---
Progress Note: A&P Assessment and Plan (1) Left ureteral calculus: Code(s): N20.1 - Calculus of ureter Status: Acute Assessment and Plan: Stone is only 3 mm and nonobstructive in nature. Recommend continuing with tamsulosin as an outpatient and straining urine. Will reimage her in couple of weeks. Subjective Subjective Date/Time Seen: 09/07/23 12:11 Post Op day: 1 Principal diagnosis: nonobstructive 3 mm left proximal ureteral calculus Interval history: doing well from urologic standpoint. Denies any flank pain. No intervention needed at this point. Review of Systems Review of Systems: All systems reviewed & are unremarkable except as noted in HPI and below Exam Const: General: cooperative and comfortable Resp: Effort & Inspection: normal respiratory effort Cardio: Rate: regular rate Rhythm: regular rhythm Objective Data Vital Signs Vital Signs: Vital Signs - 24 hr 09/06/23 14:00 09/06/23 16:00 09/06/23 21:37 Temperature 36.4 C 36.4 C Pulse Rate 90 95 90 Respiratory Rate 12 18 Blood Pressure 114/49 L 123/58 L Pulse Oximetry 99 97 Oxygen Delivery 09/06/23 20:00 09/07/23 00:00 09/07/23 04:00 Temperature Pulse Rate 87 84 88 Respiratory Rate Blood Pressure Pulse Oximetry Oxygen Delivery 09/07/23 04:55 09/07/23 08:00 09/07/23 08:58 Temperature 36.6 C Pulse Rate 95 95 Respiratory Rate 16 Blood Pressure 140/60 Pulse Oximetry 98 Oxygen Delivery Room Air 09/07/23 12:00 Temperature Pulse Rate 94 Respiratory Rate Blood Pressure Pulse Oximetry Oxygen Delivery Intake/Output Intake/Output: Intake & Output 09/04/23 09/05/23 09/06/23 09/07/23 23:59 23:59 23:59 23:59 Intake Total 3050 1200 1050 Balance 3050 1200 1050 Meds/Results Medications: Active Medications Generic Name Dose Route Start Last Admin Trade Name Freq PRN Reason Stop Dose Admin Cyanocobalamin 1,000 mcg 09/07/23 09:00 09/07/23 08:58 Cyanocobalamin 1,000 Mcg Tablet PO 1,000 mcg QAM DARIN Administration Dextrose 12.5 gm 09/06/23 01:36 Dextrose 50% 25 Gm/50 Ml Syringe IV PUSH PRN PRN Hypoglycemia Protocol Ferrous Gluconate 324 mg 09/06/23 17:00 09/07/23 12:05 Ferrous Gluconate 324 Mg Tablet PO 324 mg BIDWM DARIN Administration Glucagon 1 mg 09/06/23 01:36 Glucagon For Inj 1 Mg Vial IM PRN PRN Hypoglycemia Protocol Glucose 15 gm 09/06/23 01:36 Glucose Oral Gel 15 Gm Of Glucse In 37.5 Gm Tube PO PRN PRN Hypoglycemia Protocol Hydromorphone HCl 0.5 mg 09/05/23 20:34 09/06/23 05:41 Hydromorphone Hcl Inj (*Crx) 1 Mg/Ml Syr IV PUSH 0.5 mg Q4H PRN Administration Pain Rated 7-10 Piperacillin Sod/Tazobactam Sod 2.25 gm in 50 mls @ 100 mls/hr 09/06/23 02:00 09/07/23 12:03 Zosyn 2.25 Gm/Ns 50 Ml IVPB 100 mls/hr Q6HR DARIN Administration Dextrose 1,000 mls @ 100 mls/hr 09/06/23 01:36 Dextrose 5% 1,000 Ml IVPB PRN PRN Hypoglycemia Protocol Sodium Chloride 1,000 mls @ 100 mls/hr 09/06/23 01:40 09/07/23 03:23 Normal Saline Iv IV CONT 100 mls/hr .Q10H DARIN Administration Insulin Aspart 2 - 5 units 09/06/23 06:00 09/07/23 12:10 Insulin Aspart (*Bkc) 100 Units/Ml SUB-Q Not Given Q6HR DARIN Protocol Mesalamine 1,000 mg 09/06/23 21:00 09/06/23 21:02 Mesalamine 1,000 Mg Supp.Rect RECTAL 1,000 mg QHS DARIN Administration Ondansetron HCl 4 mg 09/05/23 20:34 09/05/23 21:07 Ondansetron Inj 4 Mg/2 Ml Vial IV PUSH 4 mg Q4H PRN Administration Nausea Tamsulosin HCl 0.4 mg 09/07/23 09:00 09/07/23 08:58 Tamsulosin Hcl 0.4 Mg Capsule PO 0.4 mg QAM DARIN Administration Radiology Results: ITS Impressions Abdomen/Pelvis CT 09/05/23 18:48 IMPRESSION: 1. Cystadenoma versus mesenteric cyst unchanged from previous examination 2. Diverticulitis with possible small abscess for
--- NOTE | 2023-09-07 13:32 | PM.PNGS ---
Progress Note: A&P Assessment and Plan (1) Diverticulitis: Code(s): K57.92 - Diverticulitis of intestine, part unspecified, without perforation or abscess without bleeding Status: Acute Assessment and Plan: Seems to be improving. Patient no longer nauseated and would like to have clear liquids. The left lower quadrant pain she was experiencing is gone and her exam shows this to be nearly nontender. Her creatinine clearance is over 40 and I will increase the dose of her Zosyn appropriately. Left shift noted on CBC from today but doubt this is from diverticulitis. (2) Right upper quadrant pain: Code(s): R10.11 - Right upper quadrant pain Status: Chronic Assessment and Plan: Patient noted to have gallstones from CT scan and ultrasound done on August 25. Ultrasound did not suggest cholecystitis at that time. She was seen in follow-up with my partner, Dr. Regan, and seem to be improved but thought to have chronic cholecystitis. At this time, seems that cholecystitis is more of a problem as she is having persistent pain and she had nausea vomiting and poor eating prior to admission. Will get repeat ultrasound and HIDA scan tomorrow. Probably will need cholecystectomy this admission. (3) Left ureteral calculus: Code(s): N20.1 - Calculus of ureter Status: Acute Assessment and Plan: Dr. Griffin consultation appreciated. Small stone and none obstructing. Being treated with tamsulosin and urinary straining. 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 Mesalamine per rectum continued and does not appear that sigmoid inflammatory process is part of the proctitis. Will need colonoscopy in 6 weeks. (5) Ovarian cystic mass: Qualifiers: Laterality: right Qualified Code(s): N83.201 - Unspecified ovarian cyst, right side Code(s): N83.209 - Unspecified ovarian cyst, unspecified side Status: Acute Assessment and Plan: Will ask Dr. Garcia to see patient tomorrow. If patient to have laparoscopic cholecystectomy, consider addressing the large ovarian cystadenoma at same procedure. She has an office appointment with Dr. Garcia on Friday. Subjective Subjective Date/Time Seen: 09/07/23 13:32 Patient reports: feels better, pain is less (Left lower quadrant pain is gone but still having right upper quadrant pain), bowel movement and afebrile Review of Systems Review of Systems: All systems reviewed & are unremarkable except as noted in HPI and below (HPI) Exam Const: General: cooperative, comfortable, no acute distress, alert, awake, lethargic and tired appearing Orientation/consciousness: patient oriented x3 and No confusion GI: Inspection: normal to inspection and non-distended GI Palp: Yes Soft to palpation, Yes Tenderness to palpation present (GI) (RUQ only, minimal left lower quadrant or suprapubic tenderness), No Guarding due to palpation present (GI), No Hernia present, No Palpable mass present and No Rebound tenderness present Auscultation: absent bowel sounds Objective Data Vital Signs Vital Signs: Vital Signs - 24 hr 09/06/23 14:00 09/06/23 16:00 09/06/23 21:37 Temperature 36.4 C 36.4 C Pulse Rate 90 95 90 Respiratory Rate 12 18 Blood Pressure 114/49 L 123/58 L Pulse Oximetry 99 97 Oxygen Delivery 09/06/23 20:00 09/07/23 00:00 09/07/23 04:00 Temperature Pulse Rate 87 84 88 Respiratory Rate Blood Pressure Pulse Oximetry Oxygen Delivery 09/07/23 04:55 09/07/23 08:00 09/07/23 08:58 Temperature 36.6 C Pulse Rate 95 95 Respiratory Rate 16 Blood Pressure 140/60 Pulse Oximetry 98 Oxygen Delivery Room Air 09/07/23 12:00 Temperature Pulse Rate 94 Respiratory Rate Blood Pressure Pulse Oximetry Oxygen Delivery Intake/Output Intake/Output: Intake & Output
[2023-09-07] MEDS: ENOXAPARIN 40 MG/0.4 ML SYRINGE SUB-Q (15:14)
--- NOTE | 2023-09-07 16:19 | PM.IMPN ---
Progress Note: A&P Assessment and Plan (1) Sepsis: Qualifiers: Sepsis type: sepsis due to unspecified organism Sepsis acute organ dysfunction status: without acute organ dysfunction Qualified Code(s): A41.9 - Sepsis, unspecified organism Code(s): A41.9 - Sepsis, unspecified organism Status: Acute Assessment and Plan: Septic on admission with tachycardia, tachypnea. Source of infection felt to be diverticulitis versus possible UTI. Will continue gentle IV fluid hydration and broad-spectrum antibiotics with IV Zosyn. Stool culture, urine culture, blood cultures pending. WBC within normal limits, 8.7. Lactic acid 0.8 --Antibiotics below (2) Diverticulitis: Code(s): K57.92 - Diverticulitis of intestine, part unspecified, without perforation or abscess without bleeding Status: Acute Assessment and Plan: CT demonstrates diverticulitis with possible small abscess. Appreciate general surgery consultation. Consult to GI has been placed, recommendations appreciated. Continue IV Zosyn as above. Clear liquids today, advance per General surgery/GI recommendations (3) Abnormal finding on urinalysis: Code(s): R82.90 - Unspecified abnormal findings in urine Status: Acute Assessment and Plan: UA abnormal, concerning for possible UTI, though she has no urinary symptoms. --Continue Zosyn for abdominal infection above (4) Calculus of proximal right ureter: Code(s): N20.1 - Calculus of ureter Status: Acute Assessment and Plan: Noted to have 3 mm nonobstructing proximal ureter stone. Has been seen in consultation by Urology, recommendations appreciated. Will begin tamsulosin and strain urine and allow for trial of passage. If she becomes symptomatic, will repeat imaging and consider stone treatment as needed (5) Pelvic mass: Code(s): R19.00 - Intra-abdominal and pelvic swelling, mass and lump, unspecified site Status: Acute Assessment and Plan: Large pelvic mass noted on CT felt to be consistent with right ovarian cystadenoma. She is scheduled for follow-up on 09/09/2023 as an outpatient with Dr. Garcia. Consider inpatient consultation based on hospital course (6) Cholelithiasis and acute cholecystitis without obstruction: Code(s): K80.00 - Calculus of gallbladder with acute cholecystitis without obstruction Status: Acute Assessment and Plan: Known issue, recently evaluated as an outpatient by Dr. Regan. --Surgery planning RUQ US and HIDA scan tomorrow (7) Microcytic anemia: Code(s): D50.9 - Iron deficiency anemia, unspecified Status: Acute Assessment and Plan: Noted to be anemic since 05/2023. Iron panel completed today with low iron stores. B12 low. Folate normal. Will begin iron supplementation and B12 supplementation. Continue to monitor H&H closely, stable at this time. (8) Hyperosmolar hyponatremia: Code(s): E87.0 - Hyperosmolality and hypernatremia; E87.1 - Hypo-osmolality and hyponatremia Status: Acute Assessment and Plan: Secondary to dehydration. Patient received IV fluid bolus on admission. Sodium improved today, 133. 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 Blood sugars stable during admission. Holding on sliding scale insulin while NPO. Hypoglycemic protocol implemented (10) Unintentional weight loss of more than 10% body weight within 6 months: Code(s): R63.4 - Abnormal weight loss S
[2023-09-07] MEDS: PIPERACILLN/TAZ 3.375GM/NS50ML 3.375 GM/50 ML BAG IVPB (17:02)
[2023-09-07 18:19] LABS: Glucose Point of Care 137 mg/dl (65-105)
[2023-09-07 21:09] LABS: Glucose Point of Care 123 mg/dl (65-105)
[2023-09-07] MEDS: MESALAMINE 1,000 MG SUPP.RECT 1000 MG RECTAL (21:43)
[2023-09-08] VITALS (9 sets, daily range): BP systolic 133–141; BP diastolic 52–67; PULSE 86–98; RESP 16–18; TEMP 36.5–37.2; O2SAT 96–100
[2023-09-08] MEDS: PIPERACILLN/TAZ 3.375GM/NS50ML 3.375 GM/50 ML BAG IVPB ×4 (00:23→18:32)
[2023-09-08] MEDS: SODIUM CHLORIDE 0.9% IV 1,000 ML 100 ML IV CONT (00:29)
[2023-09-08 00:34] LABS: Glucose Point of Care 111 mg/dl (65-105)
[2023-09-08 07:03] LABS: Glucose Point of Care 100 mg/dl (65-105)
--- NOTE | 2023-09-08 07:41 | PM.PNGS ---
Progress Note: A&P Assessment and Plan (1) Diverticulitis: Code(s): K57.92 - Diverticulitis of intestine, part unspecified, without perforation or abscess without bleeding Status: Acute Assessment and Plan: Improving. Minimal left lower quadrant pain or tenderness and tolerating liquids without emesis. Continue IV antibiotics (2) Right upper quadrant pain: Code(s): R10.11 - Right upper quadrant pain Status: Chronic Assessment and Plan: Patient noted to have gallstones from CT scan and ultrasound done on August 25. Ultrasound did not suggest cholecystitis at that time. She was seen in follow-up with my partner, Dr. Regan, and seem to be improved but thought to have chronic cholecystitis. At this time, seems that cholecystitis is more of a problem as she is having persistent pain and she had nausea vomiting and poor eating prior to admission. Will get repeat ultrasound and HIDA scan today.. Probably will need cholecystectomy this admission. (3) Left ureteral calculus: Code(s): N20.1 - Calculus of ureter Status: Acute Assessment and Plan: Dr. Griffin consultation appreciated. Small stone and none obstructing. Being treated with tamsulosin and urinary straining. 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 Mesalamine per rectum continued and does not appear that sigmoid inflammatory process is part of the proctitis. Will need colonoscopy in 6 weeks. (5) Ovarian cystic mass: Qualifiers: Laterality: right Qualified Code(s): N83.201 - Unspecified ovarian cyst, right side Code(s): N83.209 - Unspecified ovarian cyst, unspecified side Status: Acute Assessment and Plan: Will ask Dr. Garcia to see patient. If patient to have laparoscopic cholecystectomy, consider addressing the large ovarian cystadenoma at same procedure. She has an office appointment with Dr. Garcia on Friday. Subjective Subjective Date/Time Seen: 09/08/23 07:41 Patient reports: pain is less (No complaints of right upper quadrant pain, some, milder, left lower quadrant pain), tolerating liquids well (Did not like the sugar in the clear liquids) and bowel movement Review of Systems Review of Systems: All systems reviewed & are unremarkable except as noted in HPI and below (HPI) Exam Const: General: comfortable and no acute distress Orientation/consciousness: patient oriented x3 GI: Inspection: non-distended GI Palp: Yes Soft to palpation, Yes Tenderness to palpation present (GI) (Mild, left lower quadrant), No Guarding due to palpation present (GI), No Hernia present, No Palpable mass present and No Rebound tenderness present Auscultation: Hypoactive bowel sounds present Neuro: General: patient oriented x3 and no focal motor deficits Extrem: General: no calf tenderness and no edema Psych: Affect: normal affect Insight: Good insight present (Psych) Judgement: Good judgement present (Psych) Objective Data Vital Signs Vital Signs: Vital Signs - 24 hr 09/07/23 08:00 09/07/23 08:58 09/07/23 12:00 Temperature Pulse Rate 95 94 Respiratory Rate Blood Pressure Pulse Oximetry Oxygen Delivery Room Air 09/07/23 14:00 09/07/23 16:00 09/07/23 22:00 Temperature 36.6 C 37.2 C Pulse Rate 94 93 97 Respiratory Rate 20 19 Blood Pressure 120/51 L 137/49 L Pulse Oximetry 100 98 Oxygen Delivery 09/07/23 20:00 09/08/23 00:00 09/08/23 04:00 Temperature Pulse Rate 97 94 86 Respiratory Rate Blood Pressure Pulse Oximetry Oxygen Delivery 09/08/23 06:00 Temperature 37.1 C Pulse Rate 88 Respiratory Rate 16 Blood Pressure 133/52 L Pulse Oximetry 96 Oxygen Delivery Intake/Output Intake/Output: Intake & Output 09/05/23 09/06/23 09/07/23 09/08/23 23:59 23:59 23:59 23:59 Intake Total 3050 12
[2023-09-08] MEDS: CYANOCOBALAMIN 1,000 MCG TABLET 1000 MCG PO (09:18)
[2023-09-08] MEDS: ENOXAPARIN 40 MG/0.4 ML SYRINGE SUB-Q (09:18)
[2023-09-08] MEDS: TAMSULOSIN HCL 0.4 MG CAPSULE PO (09:18)
[2023-09-08] MEDS: FERROUS GLUCONATE 324 MG TABLET PO ×2 (09:18→16:31)
--- NOTE | 2023-09-08 09:24 | WPDUROPN2 ---
Progress Note: A&P Assessment and Plan (1) Left ureteral calculus: Code(s): N20.1 - Calculus of ureter Status: Acute Assessment and Plan: Nonobstructing 3 mm left ureter stone. She is asymptomatic. Continue tamsulosin. Continue to strain all urine. Will plan for repeat imaging in a couple of weeks if stone has not passed Subjective Subjective Date/Time Seen: 09/08/23 09:24 Interval history: Doing fair today. Continues to complain of left lower quadrant pain. Reports some right upper back pain. Denies left flank pain. No nausea, vomiting, fever, chills. Reports she is voiding without difficulty and urine is clear. Has been trying to strain urine but has not passed a stone Review of Systems Review of Systems: All systems reviewed & are unremarkable except as noted in HPI and below Exam Narrative: General: Awake, alert, comfortable, no acute distress HEENT: Normocephalic, atraumatic, sclerae anicteric Respiratory: Normal respiratory effort, no accessory muscle use Abdomen: Nondistended, soft, nontender Skin: Normal coloration, warm and dry Neurologic: No focal neuro deficits noted Psychiatric: Appropriate mood and affect, judgment and insight intact Objective Data Vital Signs Vital Signs: Vital Signs - 24 hr 09/07/23 12:00 09/07/23 14:00 09/07/23 16:00 Temperature 97.9 F Pulse Rate 94 94 93 Respiratory Rate 20 Blood Pressure 120/51 L Pulse Oximetry 100 09/07/23 22:00 09/07/23 20:00 09/08/23 00:00 Temperature 98.9 F Pulse Rate 97 97 94 Respiratory Rate 19 Blood Pressure 137/49 L Pulse Oximetry 98 09/08/23 04:00 09/08/23 06:00 09/08/23 08:00 Temperature 98.7 F Pulse Rate 86 88 86 Respiratory Rate 16 Blood Pressure 133/52 L Pulse Oximetry 96 Intake/Output Intake/Output: Intake & Output 09/05/23 09/06/23 09/07/23 09/08/23 23:59 23:59 23:59 23:59 Intake Total 3050 1200 2790 1540 Balance 3050 1200 2790 1540 Meds/Results Medications: Active Medications Generic Name Dose Route Start Last Admin Trade Name Freq PRN Reason Stop Dose Admin Cyanocobalamin 1,000 mcg 09/07/23 09:00 09/08/23 09:18 Cyanocobalamin 1,000 Mcg Tablet PO 1,000 mcg QAM DARIN Administration Dextrose 12.5 gm 09/06/23 01:36 Dextrose 50% 25 Gm/50 Ml Syringe IV PUSH PRN PRN Hypoglycemia Protocol Enoxaparin Sodium 40 mg 09/08/23 09:00 09/08/23 09:18 Enoxaparin 40 Mg/0.4 Ml Syringe SUB-Q 40 mg DAILY DARIN Administration Ferrous Gluconate 324 mg 09/06/23 17:00 09/08/23 09:18 Ferrous Gluconate 324 Mg Tablet PO 324 mg BIDWM DARIN Administration Glucagon 1 mg 09/06/23 01:36 Glucagon For Inj 1 Mg Vial IM PRN PRN Hypoglycemia Protocol Glucose 15 gm 09/06/23 01:36 Glucose Oral Gel 15 Gm Of Glucse In 37.5 Gm Tube PO PRN PRN Hypoglycemia Protocol Hydromorphone HCl 0.5 mg 09/05/23 20:34 09/06/23 05:41 Hydromorphone Hcl Inj (*Crx) 1 Mg/Ml Syr IV PUSH 0.5 mg Q4H PRN Administration Pain Rated 7-10 Dextrose 1,000 mls @ 100 mls/hr 09/06/23 01:36 Dextrose 5% 1,000 Ml IVPB PRN PRN Hypoglycemia Protocol Sodium Chloride 1,000 mls @ 100 mls/hr 09/06/23 01:40 09/08/23 05:37 Normal Saline Iv IV CONT Not Given .Q10H DARIN Piperacillin/Tazobactam/Dextrose 3.375 gm in 50 mls @ 100 mls/hr 09/07/23 17:00 09/08/23 06:25 Zosyn 3.375 Gm/Ns 50 Ml IVPB 100 mls/hr Q6HR DARIN Administration Insulin Aspart 2 - 5 units 09/06/23 06:00 09/08/23 06:44 Insulin Aspart (*Bkc) 100 Units/Ml SUB-Q Not Given Q6HR DARIN Protocol Mesalamine 1,000 mg 09/06/23 21:00 09/07/23 21:43 Mesalamine 1,000 Mg Supp.Rect RECTAL 1,000 mg QHS DARIN Administration Ondansetron HCl 4 mg 09/05/23 20:34 09/05/23 21:07 Ondansetron Inj 4 Mg/2 Ml Vial IV PUSH 4 mg Q4H PRN Administration Nausea Tamsulosin HCl 0.4 mg 09/07/23 09:00
[2023-09-08 12:32] LABS: Glucose Point of Care 93 mg/dl (65-105)
--- NOTE | 2023-09-08 12:50 | PM.IMPN ---
Progress Note: A&P Assessment and Plan (1) Left ureteral calculus: Code(s): N20.1 - Calculus of ureter Status: Acute (2) Ovarian cystic mass: Qualifiers: Laterality: right Qualified Code(s): N83.201 - Unspecified ovarian cyst, right side Code(s): N83.209 - Unspecified ovarian cyst, unspecified side Status: Acute (3) Vomiting: Qualifiers: Nausea presence: with nausea Vomiting type: unspecified Qualified Code(s): R11.2 - Nausea with vomiting, unspecified Code(s): R11.10 - Vomiting, unspecified Status: Acute (4) Left lower quadrant abdominal pain: Code(s): R10.32 - Left lower quadrant pain Status: Acute (5) Unintentional weight loss of more than 10% body weight within 6 months: Code(s): R63.4 - Abnormal weight loss Status: Acute (6) Chronic kidney disease: Code(s): N18.9 - Chronic kidney disease, unspecified Status: Acute (7) Inflammatory bowel disease (ulcerative colitis): Code(s): K51.90 - Ulcerative colitis, unspecified, without complications Status: Acute (8) Urinary tract infection: Code(s): N39.0 - Urinary tract infection, site not specified Status: Acute (9) Intra-abdominal abscess: Code(s): K65.1 - Peritoneal abscess Status: Acute (10) Sepsis: Qualifiers: Sepsis acute organ dysfunction status: without acute organ dysfunction Sepsis type: sepsis due to unspecified organism Qualified Code(s): A41.9 - Sepsis, unspecified organism Code(s): A41.9 - Sepsis, unspecified organism Status: Acute (11) Type 2 diabetes mellitus: Qualifiers: Diabetes mellitus complication status: without complication 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 Source of infection felt to be diverticulitis versus possible UTI. Treated with fluids and antibiotics as noted --Fluid bolus today for orthostatic dizziness, continue fluids, NS@100/hr - Stool culture, urine culture, blood cultures pending. WBC within normal limits, 8.7. Lactic acid 0.8 --Antibiotics below Diverticulitis: Diarrhea and watery stools CT demonstrates diverticulitis with possible small abscess. GI and surgery following, appreciate recommendations -- Continue IV Zosyn --Clear liquids today, advance per General surgery/GI recommendations Pelvic mass Ovarian cystic mass: Intra-abdominal and pelvic swelling, mass and lump, unspecified site Large pelvic mass noted on CT felt to be consistent with right ovarian cystadenoma. She is scheduled for follow-up on 09/09/2023 as an outpatient with Dr. Garcia, Surgery recommended consult during admission Pelvic US 09/07: 1. Indeterminate 15.1 x 1.2 x 12.0 cm complex cystic lesion in the pelvis with several thin and thickened internal septations and hypoechoic solid component but without evident internal vascular flow on color Doppler or enhancing soft tissue component on prior CT location and combined appearance on CT and ultrasound would favor an ovarian neoplasm more likely benign cystadenoma rather than malignant cystadenocarcinoma. Evolving hemorrhagic cyst could appear similarly however the size would be unusual. Other complex cystic ovarian lesions such as endometrioma, ovarian dermoid tumor, peroneal inclusion cyst or other extra ovarian complex cystic etiologies would be considered less likely. Cholelithiasis and acute cholecystitis without obstruction: Calculus of gallbladder with acute cholecystitis without obstruction Known issue, recently evaluated as an outpatient by Dr. Regan. --Surgery recommended RUQ US and H
--- NOTE | 2023-09-08 13:11 | WPDCN ---
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 - tumor markers pending - discussed that we do not biopsy ovarian masses as ovarian malignancies spread by seeding (which biopsy would spread it) - if tumor markers severely elevated, would recommend transfer to [facility] for further management as ovarian malignancies are commonly treated with chemotherapy prior to debulking surgeries. HPI Data of Consult Date/Time: 09/08/23 13:11 Requesting Physician: Gretchen Bains APRN Primary Care Provider: UNKNOWN,DOCTOR Consult Narrative Reason for consult: Pelvic mass Narrative: Farhana is a postmenopausal 63yo P1002 who is admitted with sepsis of possible diverticulitis vs cholecystitis; has a h/o colitis and multiple GI issues. CT scan was performed in the ER and shows a large pelvic mass amongst other things (gall stones, urinary stones, thickened bowel/bladder, possible diverticulitis, possible cholecystitis). She reports that she has lost quite a bit of weight over the last two years; really started noticing a lot of weight loss since July; likely has lost about 30-35lbs in the last couple years. She has undergone colonoscopy (diagnosed with colitis). She does have pelvic cramping, but then commonly has diarrhea. She denies any postmenopausal vaginal bleeding. She reports that she has had normal pap smears performed by her PCP. POWER SYSTEM ELECTRICAL ENGINEER US performed today shows 12.0 x 11.2 x 15.1 cm complex cystic lesion in the right pelvis. There are multiple internal thin and thicker septations the latter measuring up to 7 mm. There is also a 3.6 x 2.5 x 1.8 cm hypoechoic solid component within the largest anechoic loculation of the lesion. No definitive internal vascular flow within the lesion on color Doppler. Review of Systems Constitutional: Constitutional: Reports chills, Reports fatigue, Reports fever(s) and Reports weight loss Cardiovascular: Cardiovascular: Denies chest pain Respiratory: Respiratory: Denies cough and Denies dyspnea Gastrointestinal: Gastrointestinal: Reports bloating, Reports hematochezia (had rectal abscess), Reports GI cramping, Reports diarrhea and Reports vomiting Genitourinary: Genitourinary: Denies abnormal vaginal bleeding, Denies pelvic pain and Denies vaginal discharge Neurologic: Denies headache(s) PMFSH Past Medical History Medical History Chronic anemia Chronic kidney disease Essential hypertension Inflammatory bowel disease (ulcerative colitis) Type 2 diabetes mellitus Surgical History Surgical History Anal fistula Anal fistulotomy on 02/12/22 History of ear surgery Hx of hemorrhoidectomy 05/08/22 Hx of tubal ligation Family History Family History Other Diabetes mellitus Social History Social History Social History: Patient lives with her of 42 years. They had a set of fraternal twins. Their son is healthy. The daughter as congenital heart disease with large ASD that was not identified until she was in her 20s. 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 She is a lifelong nonsmoker and does not drink alcohol or use illicit substances. Code status: Full code (she would not want long-term intubation, tracheostomy or feeding tube) Surrogate decision maker: Sj () Smoking status: Never smoker Second hand tobacco smoke exposure: No Alcohol intake: never Substance use: never Substance use type:
[2023-09-08] MEDS: SODIUM CHLORIDE 0.9% IV 500 ML IV CONT (13:25)
[2023-09-08 13:37] LABS: Anion Gap 8 mmol/L (4-12); Blood Urea Nitrogen 12 mg/dL (7-17); Calcium 7.5 mg/dL (8.4-10.2); Carbon Dioxide 21 mmol/L (22-30); Chloride 103 mmol/L (98-107); Estimated CRCL calculation 61 ml/min; Estimated Glomerular Filt Rate > 60; Glucose 88 mg/dL (65-110); Magnesium 1.7 mg/dL (1.6-2.3); Potassium 3.2 mmol/L (3.4-5.0); Sodium 132 mmol/L (137-145)
[2023-09-08 17:38] LABS: Glucose Point of Care 88 mg/dl (65-105)
[2023-09-08] MEDS: POTASSIUM CHLORIDE 20 MEQ ER TABLET 40 MEQ PO (18:31)
--- NOTE | 2023-09-08 18:51 | WPDGIPROGNO ---
Progress Note: A&P Assessment and Plan (1) Diverticulitis: Code(s): K57.92 - Diverticulitis of intestine, part unspecified, without perforation or abscess without bleeding Status: Acute Assessment and Plan: on treatment, better (2) Idiopathic proctitis: Code(s): K62.89 - Other specified diseases of anus and rectum Status: Chronic Assessment and Plan: less drainage with stool (3) Cholelithiasis and acute cholecystitis without obstruction: Code(s): K80.00 - Calculus of gallbladder with acute cholecystitis without obstruction Status: Acute Assessment and Plan: hida scan c/w cholecystitis, surgery on board may need lap balaji (4) Ovarian cystic mass: Qualifiers: Laterality: right Qualified Code(s): N83.201 - Unspecified ovarian cyst, right side Code(s): N83.209 - Unspecified ovarian cyst, unspecified side Status: Acute Assessment and Plan: nurse transplant on board, if tumor markers elevated then will need transfer to tertiary center, concern for malignancy (5) Vomiting: Qualifiers: Vomiting type: unspecified Nausea presence: with nausea Qualified Code(s): R11.2 - Nausea with vomiting, unspecified Code(s): R11.10 - Vomiting, unspecified Status: Acute (6) Left lower quadrant abdominal pain: Code(s): R10.32 - Left lower quadrant pain Status: Acute (7) Type 2 diabetes mellitus: Qualifiers: 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 Time Spent With Patient Time: 35 minutes Subjective Date/time seen: 09/08/23 18:51 Interval history: lower abdominal pain better but still with ruq discomfort Review of Systems Review of Systems: All systems reviewed & are unremarkable except as noted in HPI and below Exam Const: General: comfortable and no acute distress Orientation/consciousness: patient oriented x3 HENMT: Face/Nose/Sinus: Normal nares present Eyes: General: appearance normal, both eyes and all related structures Neck: Neck: supple Resp: Effort & Inspection: normal respiratory effort Cardio: Rate: regular rate GI: Inspection: non-distended GI Palp: Yes Soft to palpation, Yes Tenderness to palpation present (GI) (Mild, left lower quadrant) and No Guarding due to palpation present (GI) Auscultation: Hypoactive bowel sounds present Skin: General skin exam: normal color Neuro: General: patient oriented x3 and no focal motor deficits Extrem: General: no edema Psych: Affect: normal affect Insight: Good insight present (Psych) Judgement: Good judgement present (Psych) Objective Data Vital Signs Vital Signs: Vital Signs - 24 hr 09/07/23 22:00 09/07/23 20:00 09/08/23 00:00 Temperature 98.9 F Pulse Rate 97 97 94 Respiratory Rate 19 Blood Pressure 137/49 L Pulse Oximetry 98 Oxygen Delivery 09/08/23 04:00 09/08/23 06:00 09/08/23 08:00 Temperature 98.7 F Pulse Rate 86 88 86 Respiratory Rate 16 Blood Pressure 133/52 L Pulse Oximetry 96 Oxygen Delivery 09/08/23 12:00 09/08/23 09:18 09/08/23 14:00 Temperature 98.9 F Pulse Rate 89 98 Respiratory Rate 16 Blood Pressure 140/66 Pulse Oximetry 99 Oxygen Delivery Room Air 09/08/23 16:00 Temperature Pulse Rate 90 Respiratory Rate Blood Pressure Pulse Oximetry Oxygen Delivery Intake/Output Intake/Output: Intake & Output 09/05/23 09/06/23 09/07/23 09/08/23 23:59 23:59 23:59 23:59 Intake Total 3050 1200 2790 4240 Balance 3050 1200 2790 4240 Meds/Results Medications: Active Medications Generic Name Dose Route Start Last Admin Trade Name Freq PRN Reason Stop Dose Admin Acetaminophen 1,0
[2023-09-08] MEDS: MAGNESIUM SULF 1 GM/D5W 100 ML 1 GM/100 ML BAG IVPB (19:18)
[2023-09-08] MEDS: MESALAMINE 1,000 MG SUPP.RECT 1000 MG RECTAL (21:13)
[2023-09-09] VITALS: PULSE 81
[2023-09-09] MEDS: PIPERACILLN/TAZ 3.375GM/NS50ML 3.375 GM/50 ML BAG IVPB ×5 (00:26→23:41)
[2023-09-09 00:27] LABS: Glucose Point of Care 87 mg/dl (65-105)
[2023-09-09 00:38] LABS: Prolactin 8.4 ng/mL
[2023-09-09 04:51] VITALS: BP 146/64; PULSE 86; RESP 18; TEMP 36.6; O2SAT 99
[2023-09-09 05:39] LABS: Hematocrit 25.8 % (37.0-47.0); Hemoglobin 7.6 g/dL (12.0-15.0); Mean Corpuscular HGB Conc 29.5 g/dl (32-36); Mean Corpuscular Volume 81.4 fl (80-100); Mean Platelet Volume 8.6 fl (7.4-10.4); Platelet Count Result 276 k/mm3 (150-375); Red Blood Count 3.17 M/mm3 (4.2-5.4); Red Cell Distribution Width 16.2 % (11.5-14.5)
[2023-09-09 05:51] LABS: Lipase 34 U/L (23-300)
[2023-09-09 06:02] LABS: Band Neutrophils Percent 10 % (0-6); Monocytes Percent Manual 4 % (3-9); Neutrophils Percent Manual 76 % (46-73); Platelet Estimate Adequate (Adequate); Total Cells Counted 100
[2023-09-09 06:03] LABS: Acanthocytes 1+; Anisocytosis 1+; Ovalocytes 1+; Schistocytes None Seen
[2023-09-09 06:15] LABS: Glucose Point of Care 80 mg/dl (65-105)
[2023-09-09 06:59] LABS: Alanine Aminotransferase 8 U/L (6-35); Albumin Level 2.1 g/dL (3.5-5.1); Alkaline Phosphatase 62 U/L (38-126); Anion Gap 12 mmol/L (4-12); Aspartate Amino Transferase 20 U/L (14-36); Bilirubin,Total 0.5 mg/dL (0.2-1.3); Blood Urea Nitrogen 10 mg/dL (7-17); Calcium 7.8 mg/dL (8.4-10.2); Carbon Dioxide 15 mmol/L (22-30); Chloride 107 mmol/L (98-107); Estimated CRCL calculation 61 ml/min; Estimated Glomerular Filt Rate > 60; Glucose 71 mg/dL (65-110); Potassium 4.5 mmol/L (3.4-5.0); Sodium 134 mmol/L (137-145)
--- NOTE | 2023-09-09 08:01 | PM.IMPN ---
Progress Note: A&P Assessment and Plan (1) Left ureteral calculus: Code(s): N20.1 - Calculus of ureter Status: Acute (2) Ovarian cystic mass: Qualifiers: Laterality: right Qualified Code(s): N83.201 - Unspecified ovarian cyst, right side Code(s): N83.209 - Unspecified ovarian cyst, unspecified side Status: Acute (3) Vomiting: Qualifiers: Nausea presence: with nausea Vomiting type: unspecified Qualified Code(s): R11.2 - Nausea with vomiting, unspecified Code(s): R11.10 - Vomiting, unspecified Status: Acute (4) Left lower quadrant abdominal pain: Code(s): R10.32 - Left lower quadrant pain Status: Acute (5) Unintentional weight loss of more than 10% body weight within 6 months: Code(s): R63.4 - Abnormal weight loss Status: Acute (6) Chronic kidney disease: Code(s): N18.9 - Chronic kidney disease, unspecified Status: Acute (7) Inflammatory bowel disease (ulcerative colitis): Code(s): K51.90 - Ulcerative colitis, unspecified, without complications Status: Acute (8) Urinary tract infection: Code(s): N39.0 - Urinary tract infection, site not specified Status: Acute (9) Intra-abdominal abscess: Code(s): K65.1 - Peritoneal abscess Status: Acute (10) Sepsis: Qualifiers: Sepsis acute organ dysfunction status: without acute organ dysfunction Sepsis type: sepsis due to unspecified organism Qualified Code(s): A41.9 - Sepsis, unspecified organism Code(s): A41.9 - Sepsis, unspecified organism Status: Acute (11) Type 2 diabetes mellitus: Qualifiers: Diabetes mellitus complication status: without complication Diabetes mellitus salvage determiner insulin use: without salvage determiner use Qualified Code(s): E11.9 - Type 2 diabetes mellitus without complications Code(s): E11.9 - Type 2 diabetes mellitus without complications Status: Chronic (12) Dizziness: Code(s): R42 - Dizziness and giddiness Status: Acute Plan Sepsis: Septic on admission with tachycardia, tachypnea. Source of infection felt to be diverticulitis versus possible UTI. Treated with fluids and antibiotics as noted --s/p NS@100/hr - Stool culture, urine culture, blood cultures pending. -WBC within normal limits, 5.0. Lactic acid 0.8 --Antibiotics below Diverticulitis: Diarrhea and watery stools CT demonstrates diverticulitis with possible small abscess. 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 She is scheduled for follow-up on 09/09/2023 as an outpatient with Dr. Garcia, Surgery recommended consult during admission. -PREPARING BOX TENDER consulted - tumor markers ordered, may need transfer to tertiary care if highly elevated -biopsy contraindicated given nature of mass and risk of spread Pelvic US 09/07: 1. Indeterminate 15.1 x 1.2 x 12.0 cm complex cystic lesion in the pelvis with several thin and thickened internal septations and hypoechoic solid component but without evident internal vascular flow on color Doppler or enhancing soft tissue component on prior CT location and combined appearance on CT and ultrasound would favor an ovarian neoplasm more likely benign cystadenoma rather than malignant cystadenocarcinoma. Evolving hemorrhagic cyst could appear similarly however the size would be unusual. Other complex cystic ovarian lesions such as endometrioma, ovarian dermoid tumor, peroneal inclusion cyst or other extra ovarian complex cystic etiologies would be considered less likely. Cholelithiasis and acute cholecystitis without obstruction: Calculus of gallbladder with acute cholecystitis without obstruction
[2023-09-09] MEDS: FERROUS GLUCONATE 324 MG TABLET PO ×2 (09:49→17:00)
[2023-09-09] MEDS: CYANOCOBALAMIN 1,000 MCG TABLET 1000 MCG PO (09:49)
[2023-09-09] MEDS: TAMSULOSIN HCL 0.4 MG CAPSULE PO (09:49)
[2023-09-09] MEDS: ENOXAPARIN 40 MG/0.4 ML SYRINGE SUB-Q (09:51)
[2023-09-09 11:44] LABS: CA 19-9 4 U/mL (<34)
[2023-09-09 12:09] LABS: CA-125 29 U/mL (<35)
[2023-09-09 12:20] LABS: Glucose Point of Care 86 mg/dl (65-105)
[2023-09-09 14:00] VITALS: BP 138/65; PULSE 95; RESP 16; TEMP 37.4; O2SAT 100
[2023-09-09] MEDS: ACETAMINOPHEN 325 MG TABLET 650 MG PO (14:54)
--- NOTE | 2023-09-09 17:29 | WPDGIPROGNO ---
Progress Note: A&P Assessment and Plan (1) Diverticulitis: Code(s): K57.92 - Diverticulitis of intestine, part unspecified, without perforation or abscess without bleeding Status: Acute Assessment and Plan: on treatment, better (2) Cholelithiasis and acute cholecystitis without obstruction: Code(s): K80.00 - Calculus of gallbladder with acute cholecystitis without obstruction Status: Acute Assessment and Plan: hida scan c/w cholecystitis, surgery on board lap balaji tomorrow will follow as needed (3) Idiopathic proctitis: Code(s): K62.89 - Other specified diseases of anus and rectum Status: Chronic Assessment and Plan: less drainage with stool (4) Ovarian cystic mass: Qualifiers: Laterality: right Qualified Code(s): N83.201 - Unspecified ovarian cyst, right side Code(s): N83.209 - Unspecified ovarian cyst, unspecified side Status: Acute Assessment and Plan: 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 Time Spent With Patient Time: 35 minutes Subjective Date/time seen: 09/09/23 17:29 Interval history: some abdominal pain after eating lap balaji tomorrow Review of Systems Review of Systems: All systems reviewed & are unremarkable except as noted in HPI and below Exam Const: General: comfortable and no acute distress Orientation/consciousness: patient oriented x3 HENMT: Face/Nose/Sinus: Normal nares present Eyes: General: appearance normal, both eyes and all related structures Neck: Neck: supple Resp: Effort & Inspection: normal respiratory effort Cardio: Rate: regular rate GI: Inspection: non-distended GI Palp: Yes Soft to palpation, Yes Tenderness to palpation present (GI) (Mild, left lower quadrant) and No Guarding due to palpation present (GI) Auscultation: Hypoactive bowel sounds present Skin: General skin exam: normal color Neuro: General: patient oriented x3 and no focal motor deficits Extrem: General: no edema Psych: Affect: normal affect Insight: Good insight present (Psych) Judgement: Good judgement present (Psych) Objective Data Vital Signs Vital Signs: Vital Signs - 24 hr 09/08/23 20:08 09/08/23 20:00 09/09/23 00:00 Temperature 97.7 F Pulse Rate 93 93 81 Respiratory Rate 18 Blood Pressure 141/67 H Pulse Oximetry 100 Oxygen Delivery Fraction of Inspired Oxygen 09/09/23 04:51 09/09/23 09:49 09/09/23 14:00 Temperature 97.8 F 99.3 F Pulse Rate 86 95 Respiratory Rate 18 16 Blood Pressure 146/64 H 138/65 Pulse Oximetry 99 100 Oxygen Delivery Room Air Fraction of Inspired Oxygen 21 Intake/Output Intake/Output: Intake & Output 09/06/23 09/07/23 09/08/23 09/09/23 23:59 23:59 23:59 23:59 Intake Total 1200 2790 4390 1865 Balance 1200 2790 4390 1865 Meds/Results Medications: Active Medications Generic Name Dose Route Start Last Admin Trade Name Freq PRN Reason Stop Dose Admin Acetaminophen 1,000 mg 09/10/23 13:00 Acetaminophen 500 Mg Tablet PO 09/10/23 13:01 ONCE ONE Acetaminophen 650 mg 09/09/23 14:41 09/09/23 14:54 Acetaminophen 325 Mg Tablet PO 650 mg Q6H PRN Administration Mild Pain (1-3) or Fever Cyanocobalamin 1,000 mcg 09/07/23 09:00 09/09/23 09:49 Cyanocobalamin 1,000 Mcg Tablet PO 1,000 mcg QAM DARIN Administration Dextrose 12.5 gm 09/06/23 01:36 Dextrose 50% 25 Gm/50 Ml Syringe IV PUSH PRN PRN Hypoglycemia Protocol Enoxaparin Sodium 40 mg 09/09/23 09:00 09/09/23 09:51 Enoxaparin 40 Mg/0.4 Ml Syringe SUB-Q 40 mg DAILY DARIN Administration Ferrous Gluconate 324 mg 09/06/23 17:00 09/09/23 17:00 Ferrous Gluconate 324 Mg Tablet PO 324 mg BIDWM DARIN Administration Glucagon 1 mg 09/06/23 01:36 Glucagon For Inj 1 Mg Vial IM PRN PRN Hypoglycemia Protocol
[2023-09-09 18:12] LABS: Glucose Point of Care 94 mg/dl (65-105)
[2023-09-09 20:00] VITALS: PULSE 93; RESP 18; O2SAT 100
[2023-09-09] MEDS: MESALAMINE 1,000 MG SUPP.RECT 1000 MG RECTAL (20:16)
[2023-09-09 20:21] VITALS: BP 133/56; PULSE 93; RESP 18; TEMP 36.7; O2SAT 100
[2023-09-09] MEDS: SODIUM CHLORIDE 0.9% IV 250 ML 20 ML (23:41)
[2023-09-10] VITALS (14 sets, daily range): BP systolic 98–158; BP diastolic 49–77; PULSE 18–98; RESP 12–18; TEMP 36.2–36.8; O2SAT 97–100; BMI 28.1
[2023-09-10 00:13] LABS: Glucose Point of Care 92 mg/dl (65-105)
[2023-09-10] MEDS: PIPERACILLN/TAZ 3.375GM/NS50ML 3.375 GM/50 ML BAG IVPB ×4 (05:45→23:52)
[2023-09-10 05:47] LABS: Glucose Point of Care 84 mg/dl (65-105)
[2023-09-10 08:00] LABS: Glucose Point of Care 85 mg/dl (65-105)
[2023-09-10] MEDS: ENOXAPARIN 40 MG/0.4 ML SYRINGE SUB-Q (09:01)
[2023-09-10 09:48] LABS: Basophils Percent Auto 0.6 % (0.2-1.2); Eosinophils Absolute Auto 0.1 K/mm3 (0-0.3); Eosinophils Percent Auto 1.9 % (0-4.4); Hemoglobin 8.3 g/dL (12.0-15.0); Immature Granulocyte Absolute 0.02 K/mm3 (0.00-0.031); Immature Granulocyte Percent A 0.4 % (0-0.5); Lymphocytes Absolute Auto 0.83 K/mm3 (0.9-3.2); Lymphocytes Percent Auto 15.4 % (18.3-44.2); Mean Corpuscular HGB Conc 29.6 g/dl (32-36); Mean Corpuscular Hemoglobin 23.5 pg (26-34); Mean Corpuscular Volume 79.3 fl (80-100); Mean Platelet Volume 8.4 fl (7.4-10.4); Monocytes Absolute Auto 0.8 K/mm3 (0.1-0.6); Monocytes Percent Auto 15.2 % (2.6-8.5); Neutrophils Absolute Auto 3.6 K/mm3 (1.3-6.7); Neutrophils Percent Auto 66.5 % (45.5-73.1); Platelet Count Result 321 k/mm3 (150-375); Red Blood Count 3.53 M/mm3 (4.2-5.4); Red Cell Distribution Width 16.5 % (11.5-14.5); White Blood Count 5.4 K/mm3 (4.5-10.0)
[2023-09-10 09:52] LABS: Alanine Aminotransferase 9 U/L (6-35); Albumin Level 2.5 g/dL (3.5-5.1); Alkaline Phosphatase 74 U/L (38-126); Anion Gap 11 mmol/L (4-12); Aspartate Amino Transferase 21 U/L (14-36); Bilirubin,Total 0.4 mg/dL (0.2-1.3); Blood Urea Nitrogen 7 mg/dL (7-17); Calcium 7.7 mg/dL (8.4-10.2); Carbon Dioxide 17 mmol/L (22-30); Chloride 106 mmol/L (98-107); Estimated CRCL calculation 54 ml/min; Estimated Glomerular Filt Rate > 60; Glucose 82 mg/dL (65-110); Potassium 4.1 mmol/L (3.4-5.0); Sodium 134 mmol/L (137-145)
[2023-09-10 10:25] LABS: Anisocytosis 1+; Platelet Estimate Adequate (Adequate)
[2023-09-10 10:26] LABS: Crenated RBC 1+; Microcytosis 1+ (NORMAL); Schistocytes None Seen
--- NOTE | 2023-09-10 11:21 | PC.NURSE ---
Patient off unit for surgical procedure.
[2023-09-10] MEDS: ACETAMINOPHEN 500 MG TABLET 1000 MG PO (11:29)
[2023-09-10 11:49] LABS: Glucose Point of Care 78 mg/dl (65-105)
--- NOTE | 2023-09-10 11:50 | WPDHPUPDATE1 ---
History and Physical Update Update Date/Time: 09/10/23 11:50 History and Physical has been reviewed, including an updated exam of the patient. There are NO changes in the patient's condition. Risks, benefits, and alternatives have been discussed and questions answered. Patient agrees to proceed with procedure.
--- NOTE | 2023-09-10 12:24 | WPDANESEPPF ---
Anes - Initial Pre Proc Eval Procedure: Operation Date: 09/10/23 15:15 Proposed Procedures p Laparoscopic Cholecystectomy, possible Open - Kaden Bowling MD Date/Time: 09/10/23 12:24 Surgeon: Gretchen Bains APRN Pre Op Diagnosis: Diverticulitis w Poss Abscess/UTI/Ureteral Calculi Patient Data Age: 63 Gender: F Height: 1.55 m Weight: 67.6 kg Last Vital Signs Temp 97.7 F 09/10/23 12:22 Pulse 18 L 09/10/23 12:22 Resp 18 09/10/23 12:22 BP 141/66 H 09/10/23 12:22 Pulse Ox 98 09/10/23 12:22 O2 Del Method Room Air 09/10/23 12:22 FiO2 21 09/10/23 09:01 Allergies Allergy/AdvReac Type Severity Reaction Status Date / Time azithromycin AdvReac Intermediate Rash Verified 09/10/23 12:20 Home Medications Medication Instructions Recorded Confirmed Type metformin 500 mg tablet 1,000 mg PO BID 12/03/20 09/05/23 History losartan 25 mg tablet 25 mg PO DAILY 05/01/22 09/05/23 History dexamethasone 0.5 mg/5 mL oral 0.5 mg (5 mL) PO TID #237 mL 08/26/23 09/05/23 Rx elixir mesalamine 1,000 mg rectal See Rx Instructions .Route 09/05/23 09/05/23 Rx suppository .COMPLEX #30 ea Laboratory Tests 09/09/23 09/10/23 09/10/23 18:07 00:07 05:43 WBC RBC Hgb Hct MCV MCH MCHC RDW Plt Count MPV Immature Gran % (Auto) Neut % (Auto) Lymph % (Auto) [place] % (Auto) Eos % (Auto) Baso % (Auto) Lymph # (Auto) [place] # (Auto) Eos # (Auto) Baso # (Auto) Abs Immat Gran (auto) Absolute Neuts (auto) Absolute Nucleated RBC Nucleated RBC % Platelet Estimate Anisocytosis Microcytosis Crenated Cell Schistocytes Sodium Potassium Chloride Carbon Dioxide Anion Gap BUN Creatinine Estim Creat Clear Calc Estimated GFR Glucose POC Capillary Glucose 94 mg/dl 92 mg/dl 84 mg/dl (65-105) (65-105) (65-105) Calcium Total Bilirubin AST ALT Alkaline Phosphatase Total Protein Albumin 09/10/23 09/10/23 09/10/23 07:44 09:23 11:43 WBC 5.4 K/mm3 (4.5-10.0) RBC 3.53 L M/mm3 (4.2-5.4) Hgb 8.3 L g/dL (12.0-15.0) Hct 28.0 L % (37.0-47.0) MCV 79.3 L fl (80-100) MCH 23.5 L pg (26-34) MCHC 29.6 L g/dl (32-36) RDW 16.5 H % (11.5-14.5) Plt Count 321 k/mm3 (150-375) MPV 8.4 fl (7.4-10.4) Immature Gran % (Auto) 0.4 % (0-0.5) Neut % (Auto) 66.5 % (45.5-73.1) Lymph % (Auto) 15.4 L % (18.3-44.2) [place] % (Auto) 15.2 H % (2.6-8.5) Eos % (Auto) 1.9 % (0-4.4) Baso % (Auto) 0.6 % (0.2-1.2) Lymph # (Auto) 0.83 L K/mm3 (0.9-3.2) [place] # (Auto) 0.8 H K/mm3 (0.1-0.6) Eos # (Auto) 0.1 K/mm3 (0-0.3) Baso # (Auto) 0.0 K/mm3 (0.0-0.1) Abs Immat Gran (auto) 0.02 K/mm3 (0.00-0.031) Absolute Neuts (auto) 3.6 K/mm3 (1.3-6.7) Absolute Nucleated RBC 0.000 K/mm3 (0.0-0.012) Nucleated RBC % 0.0 % (0.0-0.2) Platelet Estimate Adequate (Adequate) Anisocytosis 1+ Microcytosis 1+ (NORMAL) Crenated Cell 1+ Schistocytes None seen Sodium 134 L mmol/L (137-145) Potassium 4.1 mmol/L (3.4-5.0) Chloride 106 mmol/L (98-107) Carbon Dioxide 17 L mmol/L (22-30) Anion Gap 11 mmol/L (4-12) BUN 7 mg/d
--- NOTE | 2023-09-10 13:03 | P.PNIM_ITS ---
Progress Note: A&P Assessment and Plan (1) Acute cholecystitis: Code(s): K81.0 - Acute cholecystitis Status: Acute Assessment and Plan: 09/10/23 * Ultrasound of abdomen showed cholelithiasis, fatty infiltration of liver * Hepatobiliary scan shown chronic cholecystitis and filling of the gallbladder by gallstones * General surgery was consulted * Plan for laparoscopic cholecystectomy today * Continue NPO status (2) Left ureteral calculus: Code(s): N20.1 - Calculus of ureter Status: Acute Assessment and Plan: 09/10/23: * CT of the abdomen pelvis showed stone in the left upper ureter with minimal renal pelvis fullness * Urology was consulted and found that stone was nonobstructing (3) Ovarian cystic mass: Qualifiers: Laterality: right Qualified Code(s): N83.201 - Unspecified ovarian cyst, right side Code(s): N83.209 - Unspecified ovarian cyst, unspecified side Status: Acute Assessment and Plan: 09/10/23: * Pelvic ultrasound showed and determinant 15.1 x 1.2 x 12.0 cm complex cystic lesion in the pelvis with several thin and thickened internal septations and hypoechoic solid component but without evident internal vascular flow on color Doppler or enhancing soft tissue component on prior CT location and combined appearance on CT and ultrasound would favor an ovarian neoplasm more likely benign cystadenoma rather than malignant cystadenocarcinoma. * Will need gynecology follow-up on an outpatient basis for (4) Left lower quadrant abdominal pain: Code(s): R10.32 - Left lower quadrant pain Status: Acute Assessment and Plan: * CT of the abdomen and pelvis showed diverticulitis with possible small abscess formation in the left abdomen measuring 1.2 x 1.9 cm * GI was consulted and recommending outpatient workup * Stool culture was negative (5) Unintentional weight loss of more than 10% body weight within 6 months: Code(s): R63.4 - Abnormal weight loss Status: Acute Assessment and Plan: * BMI 20.2, 67.6 kg (6) Urinary tract infection: Code(s): N39.0 - Urinary tract infection, site not specified Status: Acute Assessment and Plan: 09/10/23: * Urine specific gravity greater than 1.04 urine protein 1+, 3+ urine blood, 2+ leukocytes, 51-100 urine RBC, greater than 100 urine wbc's, 4+ bacteria. * Urine culture was negative. * Blood culture showing no growth on preliminary read (7) Intra-abdominal abscess: Code(s): K65.1 - Peritoneal abscess Status: Acute Assessment and Plan: 09/10/23: * Abdomen pelvis CT showing diverticulitis with possible small abscess formation seen in the left abdomen measuring 1.2 x 1.9 cm * Will need GI follow-up outpatient and likely colonoscopy (8) Type 2 diabetes mellitus: Qualifiers: Diabetes mellitus complication status: without complication Diabetes mellitus truck terminal manager insulin use: without chcf use Qualified Code(s): E11.9 - Type 2 diabetes mellitus without complications Code(s): E11.9 - Type 2 diabetes mellitus without complications Status: Chronic Assessment and Plan: 09/10/23: * Blood sugars ranging 78-107 * Hgb A1C 6.3 on 07/12/2023 * Accu checks AC/HS * Low-dose SSI ordered * hypoglycemic protocol in place * Diabetic diet ordered Time Spent With Patient Time with patient: Greater than 35 minutes Subjective Date/time seen: 09/10/23 13:03 Interval history: Interval history: This is a 63 year old female who presented to the hospital on
--- NOTE | 2023-09-10 13:03 | PM.IMPN ---
Progress Note: A&P Assessment and Plan (1) Acute cholecystitis: Code(s): K81.0 - Acute cholecystitis Status: Acute Assessment and Plan: 09/10/23 Ultrasound of abdomen showed cholelithiasis, fatty infiltration of liver Hepatobiliary scan shown chronic cholecystitis and filling of the gallbladder by gallstones General surgery was consulted Plan for laparoscopic cholecystectomy today Continue NPO status (2) Left ureteral calculus: Code(s): N20.1 - Calculus of ureter Status: Acute Assessment and Plan: 09/10/23: CT of the abdomen pelvis showed stone in the left upper ureter with minimal renal pelvis fullness Urology was consulted and found that stone was nonobstructing (3) Ovarian cystic mass: Qualifiers: Laterality: right Qualified Code(s): N83.201 - Unspecified ovarian cyst, right side Code(s): N83.209 - Unspecified ovarian cyst, unspecified side Status: Acute Assessment and Plan: 09/10/23: Pelvic ultrasound showed and determinant 15.1 x 1.2 x 12.0 cm complex cystic lesion in the pelvis with several thin and thickened internal septations and hypoechoic solid component but without evident internal vascular flow on color Doppler or enhancing soft tissue component on prior CT location and combined appearance on CT and ultrasound would favor an ovarian neoplasm more likely benign cystadenoma rather than malignant cystadenocarcinoma. Will need gynecology follow-up on an outpatient basis for (4) Left lower quadrant abdominal pain: Code(s): R10.32 - Left lower quadrant pain Status: Acute Assessment and Plan: CT of the abdomen and pelvis showed diverticulitis with possible small abscess formation in the left abdomen measuring 1.2 x 1.9 cm GI was consulted and recommending outpatient workup Stool culture was negative (5) Unintentional weight loss of more than 10% body weight within 6 months: Code(s): R63.4 - Abnormal weight loss Status: Acute Assessment and Plan: BMI 20.2, 67.6 kg (6) Urinary tract infection: Code(s): N39.0 - Urinary tract infection, site not specified Status: Acute Assessment and Plan: 09/10/23: Urine specific gravity greater than 1.04 urine protein 1+, 3+ urine blood, 2+ leukocytes, 51-100 urine RBC, greater than 100 urine wbc's, 4+ bacteria. Urine culture was negative. Blood culture showing no growth on preliminary read (7) Intra-abdominal abscess: Code(s): K65.1 - Peritoneal abscess Status: Acute Assessment and Plan: 09/10/23: Abdomen pelvis CT showing diverticulitis with possible small abscess formation seen in the left abdomen measuring 1.2 x 1.9 cm Will need GI follow-up outpatient and likely colonoscopy (8) Type 2 diabetes mellitus: Qualifiers: Diabetes mellitus complication status: without complication Diabetes mellitus usp insulin use: without usp use Qualified Code(s): E11.9 - Type 2 diabetes mellitus without complications Code(s): E11.9 - Type 2 diabetes mellitus without complications Status: Chronic Assessment and Plan: 09/10/23: Blood sugars ranging 78-107 Hgb A1C 6.3 on 07/12/2023 Accu checks AC/HS Low-dose SSI ordered hypoglycemic protocol in place Diabetic diet ordered Time Spent With Patient Time with patient: Greater than 35 minutes Subjective Date/time seen: 09/10/23 13:03 Interval history: Interval history: This is a 63 year old female who presented to the hospital on 09/05/2023 with complaints of nausea, vomiting, abdominal pain. Initial workup included a abdomen/pelvis CT which shown cystadenoma verses mesenteric cyst unchanged from previous exam, diverticulitis with possible small abscess formation in the left abdomen measuring 1.2 x 1.9 cm, stone in the left upper ureter with minimal renal pelvic fullness, cyst in the liver, cholelithiasis with edematous wall which may be indicate
[2023-09-10] MEDS: BUPIVACAINE/EPINEPHRINE 0.5% 50 ML VIAL 30 ML INFILTRATE (13:04)
[2023-09-10 14:27] LABS: Glucose Point of Care 106 mg/dl (65-105)
[2023-09-10] MEDS: LACTATED RINGERS 1,000 ML 30 ML IV CONT (14:31)
--- NOTE | 2023-09-10 14:37 | W.PM.PROC2 ---
Procedure Note - Detailed Date of Procedure 09/10/23 Pre-op Diagnosis Chronic cholecystitis, cholelithiasis Post-op Diagnosis Same Procedure Performed Laparoscopic cholecystectomy Surgeon Kaden Bowling MD Spray Painter Helper Eugenie [place] RN Anesthesia General and Local Indications Patient is a 63-year-old woman who has been having some right upper quadrant pain that is often postprandial. She is known to have gallstones and has evidence of chronic cholecystitis by imaging. She was admitted at this time with acute diverticulitis and is also noted to have a large pelvic cystic mass thought to be a cystadenoma. Her pain from diverticulitis has resolved but she is still having postprandial right upper quadrant pain with emesis and nausea. She is taken to surgery now for laparoscopic cholecystectomy. Findings Gallbladder was packed with stones. It was so full of stones it was difficult to grasp the gallbladder. The wall was thickened. There was some fibrotic changes from chronic inflammation. No biliary ductal dilatation was appreciated. There was evidence of fatty liver. Description of Procedure Patient was taken to surgery and induced into general anesthesia. The abdomen is prepped and draped. Trocars were placed in usual fashion using applied Medical optical trocars. The initial trocar was placed in the epigastrium. All trocars were 1st infiltrated with local anesthetic before being placed. On the initial trocar, we placed a varies needle intraperitoneally and insufflated. After adequate insufflation 5 mm applied Medical optical trocar was placed. This showed intra-abdominal location and no evidence of injury. We then placed the remaining trocars under direct visualization. Placement patient was placed in reverse Trendelenburg. We tried to grasp and retract the gallbladder but it was so full of stones that are instruments to grasp the gallbladder would frequently come off. She had fatty liver and it was difficult to retract gallbladder as well. A 5th 5 mm port was placed in the left mid abdomen. A laparoscopic Kittner was then used to retract the medial segment of the left lobe of the liver for better visualization. Dissection was then started in the cholecystohepatic triangle. The common hepatic duct was very close to the cystic duct and very close to the infundibulum of the gallbladder. Careful dissection was carried out. There was severe chronic inflammation. Cautery was used liberally. We slowly dissected out the lower aspect of the gallbladder as well as the cystic duct. I also dissected out the cystic artery. The gallbladder was dissected off the liver at its lower 3rd. Critical view was achieved. I then securely clipped and divided the cystic artery. We dissected more of the gallbladder from the liver and then eventually securely clipped and divided the cystic duct. From there we continued dissection of the gallbladder out of the gallbladder fossa using predominantly cautery. No entry into the gallbladder was made. Any bleeding from the liver was cauterized immediately. Eventually we dissected the gallbladder free entirely. The liver was then exposed. The gallbladder fossa was then made hemostatic with cautery. Repeated irrigation and suctioning were carried out and additional cautery as needed. Eventually gallbladder fossa was quite dry and there was no evidence of bile leak either. We then placed in Endo-Catch bag in the abdomen and put the very large hardened gallbladder with in it. We extricated the gallbladder through the epigastric trocar site. However, I had to enlarge this trocar site significantly to accommodate the large gallbladder with thickened wall and many stones. Once the gallbladder was removed, we replaced the 10 11 trocar and closed off the trocar site with a towel clip so that we could re-insufflated. I then reviewed the right upper quadrant gallbladder fossa and the incision made to extract the gallbladder. All
[2023-09-10] MEDS: fentaNYL CITRATE INJ (*CRX) 100 MCG/2 ML VIAL 25 MCG IV PUSH ×2 (15:20→15:22)
[2023-09-10 16:48] LABS: Glucose Point of Care 107 mg/dl (65-105)
[2023-09-10] MEDS: FERROUS GLUCONATE 324 MG TABLET PO (17:09)
[2023-09-10 20:59] LABS: Glucose Point of Care 152 mg/dl (65-105)
[2023-09-11 01:21] VITALS: BP 136/66; PULSE 79; RESP 20; TEMP 36.9; O2SAT 98
[2023-09-11 05:21] VITALS: BP 134/64; PULSE 88; RESP 20; TEMP 36.5; O2SAT 100
[2023-09-11] MEDS: PIPERACILLN/TAZ 3.375GM/NS50ML 3.375 GM/50 ML BAG IVPB (05:45)
[2023-09-11 05:53] LABS: Hematocrit 28.1 % (37.0-47.0); Hemoglobin 8.1 g/dL (12.0-15.0); Mean Corpuscular HGB Conc 28.8 g/dl (32-36); Mean Corpuscular Hemoglobin 23.1 pg (26-34); Mean Corpuscular Volume 80.3 fl (80-100); Mean Platelet Volume 8.7 fl (7.4-10.4); Platelet Count Result 350 k/mm3 (150-375); White Blood Count 8.2 K/mm3 (4.5-10.0)
[2023-09-11 06:06] LABS: Alanine Aminotransferase 19 U/L (6-35); Albumin Level 2.3 g/dL (3.5-5.1); Alkaline Phosphatase 63 U/L (38-126); Anion Gap 11 mmol/L (4-12); Aspartate Amino Transferase 40 U/L (14-36); Bilirubin,Total 0.3 mg/dL (0.2-1.3); Blood Urea Nitrogen 8 mg/dL (7-17); Calcium 7.8 mg/dL (8.4-10.2); Carbon Dioxide 17 mmol/L (22-30); Chloride 106 mmol/L (98-107); Estimated CRCL calculation 48 ml/min; Estimated Glomerular Filt Rate > 60; Glucose 124 mg/dL (65-110); Potassium 4.4 mmol/L (3.4-5.0); Sodium 134 mmol/L (137-145)
--- NOTE | 2023-09-11 07:49 | WPDANESPN ---
Anes - Prog Note Post-Op Date/Time: 09/11/23 07:49 Cardiovascular status: normal Respiratory status: normal Airway patency: baseline Mental status: baseline Post-Op hydration status: normal Vital Signs: Last Vital Signs Temp 36.5 C 09/11/23 05:21 Pulse 88 09/11/23 05:21 Resp 20 09/11/23 05:21 BP 134/64 09/11/23 05:21 Pulse Ox 100 09/11/23 05:21 O2 Del Method Room Air 09/10/23 20:00 O2 Flow Rate 8 09/10/23 14:28 FiO2 21 09/10/23 09:01 Pain Score (VAS): 03/29 I/O: Intake & Output 09/10/23 09/10/23 09/11/23 15:59 23:59 07:59 Intake Total 350 200 150 Output Total 100 100 Balance 350 100 50 Laboratory Tests 09/11/23 05:27 09/11/23 05:27 09/10/23 09/10/23 09/10/23 07:44 09:23 11:43 WBC 5.4 RBC 3.53 L Hgb 8.3 L Hct 28.0 L MCV 79.3 L MCH 23.5 L MCHC 29.6 L RDW 16.5 H Plt Count 321 MPV 8.4 Immature Gran % (Auto) 0.4 Neut % (Auto) 66.5 Lymph % (Auto) 15.4 L [place] % (Auto) 15.2 H Eos % (Auto) 1.9 Baso % (Auto) 0.6 Lymph # (Auto) 0.83 L [place] # (Auto) 0.8 H Eos # (Auto) 0.1 Baso # (Auto) 0.0 Abs Immat Gran (auto) 0.02 Absolute Neuts (auto) 3.6 Absolute Nucleated RBC 0.000 Nucleated RBC % 0.0 Platelet Estimate Adequate Anisocytosis 1+ Microcytosis 1+ Crenated Cell 1+ Schistocytes None seen Sodium 134 L Potassium 4.1 Chloride 106 Carbon Dioxide 17 L Anion Gap 11 BUN 7 Creatinine 0.80 Estim Creat Clear Calc 54 Estimated GFR > 60 Glucose 82 POC Capillary Glucose 85 78 Calcium 7.7 L Total Bilirubin 0.4 AST 21 ALT 9 Alkaline Phosphatase 74 Total Protein 6.0 L Albumin 2.5 L 09/10/23 09/10/23 09/10/23 14:23 16:45 20:39 WBC RBC Hgb Hct MCV MCH MCHC RDW Plt Count MPV Immature Gran % (Auto) Neut % (Auto) Lymph % (Auto) [place] % (Auto) Eos % (Auto) Baso % (Auto) Lymph # (Auto) [place] # (Auto) Eos # (Auto) Baso # (Auto) Abs Immat Gran (auto) Absolute Neuts (auto) Absolute Nucleated RBC Nucleated RBC % Platelet Estimate Anisocytosis Microcytosis Crenated Cell Schistocytes Sodium Potassium Chloride Carbon Dioxide Anion Gap BUN Creatinine Estim Creat Clear Calc Estimated GFR Glucose POC Capillary Glucose 106 H 107 H 152 H Calcium Total Bilirubin AST ALT Alkaline Phosphatase Total Protein Albumin 09/11/23 05:27 WBC 8.2 RBC 3.50 L Hgb 8.1 L Hct 28.1 L MCV 80.3 MCH 23.1 L MCHC 28.8 L RDW 17.0 H Plt Count 350 MPV 8.7 Immature Gran % (Auto) Neut % (Auto) Lymph % (Auto) [place] % (Auto) Eos % (Auto) Baso % (Auto) Lymph # (Auto) [place] # (Auto) Eos # (Auto) Baso # (Auto) Abs Immat Gran (auto) Absolute Neuts (auto) Absolute Nucleated RBC Nucleated RBC % Platelet Estimate Anisocytosis Microcytosis Crenated Cell Schistocytes Sodium 134 L Potassium 4.4 Chloride 106 Carbon Dioxide 17 L Anion Gap 11 BUN 8 Creatinine 0.90 Estim Creat Clear Calc 48 Estimated GFR > 60 Glucose 124 H POC Capillary Glucose Calcium 7.8 L Total Bilirubin 0.3 AST 40 H ALT 19 Alkaline Phosphatase 63 Total Protein 5.0 L Albumin 2.3 L Microbiology 09/06/23 08:50 Stool Escherichia coli Shiga Toxins - Final 09/06/23 08:50 Stool Salmonella/Shigella Culture - Final 09/06/23 08:50 Stool Campylobacter Antigen Assay - Final Post-procedural complaints: none Patient Feedback: Patient satisfied with anesthetic care.
[2023-09-11] MEDS: FERROUS GLUCONATE 324 MG TABLET PO (08:16)
[2023-09-11] MEDS: TAMSULOSIN HCL 0.4 MG CAPSULE PO (08:16)
[2023-09-11] MEDS: CYANOCOBALAMIN 1,000 MCG TABLET 1000 MCG PO (08:16)
[2023-09-11 08:21] LABS: Glucose Point of Care 144 mg/dl (65-105)
[2023-09-11 09:21] VITALS: BP 130/62; PULSE 82; RESP 19; TEMP 36.5; O2SAT 99
[2023-09-11] MEDS: ENOXAPARIN 40 MG/0.4 ML SYRINGE SUB-Q (10:17)
[2023-09-11 11:58] LABS: Glucose Point of Care 166 mg/dl (65-105)
[2023-09-11] MEDS: CIPROFLOXACIN 500 MG TAB PO (12:32)
--- NOTE | 2023-09-11 14:37 | PM.PNGS ---
Progress Note: A&P Assessment and Plan (1) Diverticulitis: Code(s): K57.92 - Diverticulitis of intestine, part unspecified, without perforation or abscess without bleeding Status: Acute Assessment and Plan: Continues to improve. No LLQ pain or tenderness today on exam. Tolerating a low fat diet, discussed also trying to stick to low fiber foods for another 1-2 weeks. Would recommend to continue another 3-4 days of Augmentin on discharge. (2) Right upper quadrant pain: Code(s): R10.11 - Right upper quadrant pain Status: Chronic Assessment and Plan: Postop day 1 following laparoscopic cholecystectomy. She feels like her abdominal pain, heartburn, nausea, and appetite have already improved following surgery. She is tolerating a low fat diet. Okay to discharge from a surgical standpoint. Follow-up with Dr. Bowling in 2 weeks. I discussed all discharge instructions with the patient. (3) Left ureteral calculus: Code(s): N20.1 - Calculus of ureter Status: Acute Assessment and Plan: Being treated with tamsulosin and urinary straining. (4) Idiopathic proctitis: Code(s): K62.89 - Other specified diseases of anus and rectum Status: Chronic Assessment and Plan: Will need colonoscopy in 6 weeks. F/u with GI after discharge. 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 F/u with gynecology as recommended. Plan I have discussed the patient's case and plan of care with Dr. Bowling. Subjective Subjective Date/Time Seen: 09/11/23 14:37 Post Op day: 1 (Laparoscopic cholecystectomy) Patient reports: no new complaints, tolerating a regular diet, voiding w/o difficulty, no flatus, no bowel movement and afebrile Interval history: Patient is doing well today. Not requiring anything for pain. She has minimal incisional soreness with movement. No other abdominal pain. No nausea or vomiting. No acute issues overnight. Tolerating low fat diet this morning. Exam Const: General: comfortable and no acute distress GI: Inspection: non-distended and incision (incisions dry and intact) GI Palp: Yes Soft to palpation, Yes Tenderness to palpation present (GI) (incisional) and No Guarding due to palpation present (GI) Auscultation: normal bowel sounds Psych: Mental Status: mental status grossly normal Insight: Good insight present (Psych) Objective Data Vital Signs Vital Signs: Vital Signs - 24 hr 09/10/23 14:43 09/10/23 14:58 09/10/23 15:13 Temperature Pulse Rate 94 95 89 Respiratory Rate 17 15 14 Blood Pressure 118/65 123/58 L 113/64 Pulse Oximetry 97 97 98 Oxygen Delivery Room Air Room Air Room Air 09/10/23 15:20 09/10/23 15:34 09/10/23 15:45 Temperature 97.5 F L Pulse Rate 91 92 93 Respiratory Rate 16 17 18 Blood Pressure 130/64 112/66 137/62 Pulse Oximetry 97 98 98 Oxygen Delivery Room Air Room Air 09/10/23 16:00 09/10/23 16:30 09/10/23 17:30 Temperature 97.4 F L 98.3 F 97.8 F Pulse Rate 89 83 91 Respiratory Rate 18 18 18 Blood Pressure 133/58 L 135/62 106/49 L Pulse Oximetry 99 98 99 Oxygen Delivery 09/10/23 20:55 09/10/23 20:00 09/11/23 01:21 Temperature 97.3 F L 98.4 F Pulse Rate 87 79 Respiratory Rate 18 20 Blood Pressure 158/77 H 136/66 Pulse Oximetry 100 98 Oxygen Delivery Room Air 09/11/23 05:21 09/11/23 08:00 09/11/23 09:21 Temperature 97.7 F 97.7 F Pulse Rate 88 82 Respiratory Rate 20 19 Blood Pressure 134/64 130/62 Pulse Oximetry 100 99 Oxygen Delivery Room Air Intake/Output Intake/Output: Intake & Output 09/08/23 09/09/23 09/10/23 09/11/23 23:59 23:59 23:59 23:59 Intake Total 4390 3020 650 600 Output Total 1
[2023-09-11] MEDS: metroNIDAZOLE 500 MG TABLET PO (14:38)
--- NOTE | 2023-09-11 14:53 | PM.DS ---
DS: Admitting Diagnosis Discharge Date 09/11/23 Admitting Diagnosis Sepsis Diverticulitis Abnormal findings on urinalysis Calculus proximal right ureter Cholelithiasis and acute cholecystitis without obstruction Pelvic Hepatic cyst Type 2 diabetes Hyper osmolar hyponatremia Microcytic anemia Unintentional weight loss DS: Discharge Diagnosis Discharge Diagnosis (1) Acute cholecystitis: Code(s): K81.0 - Acute cholecystitis Status: Acute (2) Left ureteral calculus: Code(s): N20.1 - Calculus of ureter Status: Acute (3) Ovarian cystic mass: Qualifiers: Laterality: right Qualified Code(s): N83.201 - Unspecified ovarian cyst, right side Code(s): N83.209 - Unspecified ovarian cyst, unspecified side Status: Acute (4) Left lower quadrant abdominal pain: Code(s): R10.32 - Left lower quadrant pain Status: Acute (5) Unintentional weight loss of more than 10% body weight within 6 months: Code(s): R63.4 - Abnormal weight loss Status: Acute (6) Urinary tract infection: Code(s): N39.0 - Urinary tract infection, site not specified Status: Acute (7) Intra-abdominal abscess: Code(s): K65.1 - Peritoneal abscess Status: Acute (8) Type 2 diabetes mellitus: Qualifiers: Diabetes mellitus long-term insulin use: without long-term use Diabetes mellitus complication status: without complication Qualified Code(s): E11.9 - Type 2 diabetes mellitus without complications Code(s): E11.9 - Type 2 diabetes mellitus without complications Status: Chronic DS: Summary Hospital Course Reason for hospitalization: Sepsis Diverticulitis Abnormal findings on urinalysis Calculus proximal right ureter Cholelithiasis and acute cholecystitis without obstruction Pelvic mass Hepatic cyst Type 2 diabetes Hyper osmolar hyponatremia Microcytic anemia Unintentional weight loss Hospital Course: This is a 63-year-old female who presented to the hospital on 08/27/2023 with nausea, vomiting, abdominal pain. Workup in the hospital included an abdomen pelvis CT which shown cyst the denial a verses mesenteric cyst unchanged from previous exam, diverticulitis with possible small abscess formation in the left abdomen measuring 1.2 x 1.9 cm, stone in the left upper ureter with minimal renal pelvis fullness, cyst in the liver, cholelithiasis with edematous wall which may indicate cholecystitis. Ultrasound of abdomen shows cholelithiasis with fatty infiltration of the liver. Pelvic ultrasound showed indeterminate 15.1 x 1.2 x 12.0 cm complex cystic lesion in the pelvis with several thin and thickened internal septation. HIDA scan shown chronic cholecystitis. Chest x-ray showed left basilar atelectasis/scarring. Blood cultures were negative on final read. Urine culture was negative on final read. Stool cultures were also negative on final read. Urology was consulted for possible stone which was found to be nonobstructing. GI was consulted for the diverticulitis and will follow-up with her outpatient. Pelvic mass was seen by gynecology and she will also follow up outpatient for that. General surgery was consulted and took patient for a lap cholecystectomy yesterday which was uneventful. She denied any new complaints today. General surgery was fine with patient being discharged today on 5 more days of Augmentin and then follow-up with them in a couple weeks. Patient is stable for discharge at this time. Final diagnosis: Sepsis, diverticulitis, acute cholecystitis, new ovarian mass, moderate protein calorie mild nutrition, hyponatremia Status at Discharge Cognitive/behavioral status at discharge: Alert oriented x4 Functional status at discharge: independent ambulation Overall status at discharge: patient is progressing back to baseline Time Spent with Patient Time attestation: Total time spent providing and/or coordinating discharge services: [place]
== END 2023-09-11 15:35 | disposition home or self-care (01) | DRG 853 ==
LOC: ANHED 17:55 → ANH2MED 21:03
PROVIDERS: Nurse Practitioner Acute Care; Obstetrics & Gynecology; Physician Assistant; Surgery; Admitting Provider Internal Medicine; Emergency Provider Emergency Medicine; Visit Provider Nurse Practitioner Acute Care
PROC: 0FT44ZZ Resection of Gallbladder, Percutaneous Endoscopic Approach (ICD-10-PCS; CPT 47562; principal; 2023-09-10 15:15)
DX: A41.9 Sepsis, unspecified organism (principal); K65.1 Peritoneal abscess; E87.1 Hypo-osmolality and hyponatremia; K57.20 Diverticulitis of large intestine with perforation and abscess without bleeding; E44.0 Moderate protein-calorie malnutrition; N20.1 Calculus of ureter; K80.00 Calculus of gallbladder with acute cholecystitis without obstruction; D50.9 Iron deficiency anemia, unspecified; E11.22 Type 2 diabetes mellitus with diabetic chronic kidney disease; I12.9 Hypertensive chronic kidney disease with stage 1 through stage 4 chronic kidney disease, or unspecified chronic kidney disease; N18.9 Chronic kidney disease, unspecified; K76.89 Other specified diseases of liver; D27.0 Benign neoplasm of right ovary; E87.6 Hypokalemia; K62.89 Other specified diseases of anus and rectum; E86.0 Dehydration; R63.4 Abnormal weight loss; Z68.28 Body mass index [BMI] 28.0-28.9, adult; Z79.84 Long term (current) use of oral hypoglycemic drugs
CPT/HCPCS: 36415; 71046; 74177; 76705; 76856; 78226; 80048; 80053; 81001; 82378; 82607; 82728; 82746; 82948; 83540; 83550; 83605; 83690; 83735; 84146; 85025; 85027; 86140; 86301; 86304; 86850; 86900; 86901; 87040; 87045; 87086; 87088; 87427; 87449; 87493; 87637; 88304; 93005; 96361; 96365; 96366; 96375; 99285; A9270; A9537; G0378; J1100; J1170; J1650; J2250; J2405; J2543; J2704; J3010; J3475; J3480; J7030; J7040; J7050; J7120; Q9967

== ENCOUNTER 2023-09-24 16:28 | Inpatient (IN) | payer OTHER, MEDICARE, SELFPAY ==
[2023-09-24] VITALS (8 sets, daily range): BP systolic 104–129; BP diastolic 54–66; PULSE 56–100; RESP 14–20; TEMP 36.8; O2SAT 98–100
--- NOTE | ~2023-09-24 | CT_ITS ---
CT brain wo con Ordering provider: Christy Rosales PA-C History: 63 years Female with . altered . Comparison: None. Technique: CT of the head without contrast. Radiation reduction technique utilized. The dose-length product was 605.33 mGy-cm. FINDINGS: BRAIN PARENCHYMA AND CSF SPACES: No midline shift, mass effect or hemorrhage. The brain parenchyma a nd CSF spaces are otherwise normal. VISUALIZED PARANASAL SINUSES: Well aerated. MASTOIDS: Well aerated. BONES: The bones appear intact. SOFT TISSUES: Visualized nasopharynx is normal. Superficial soft tissues are normal. IMPRESSION: No acute intracranial findings. Reviewed, dictated and finalized at location A.
--- NOTE | ~2023-09-24 | XR_ITS ---
XR chest 2V Ordering provider: Christy Rosales PA-C History: 63 years Female with . weakness . Comparison: September 09, 2023 FINDINGS: MEDIASTINUM: The cardiac silhouette is not enlarged. LUNGS: No infiltrates, effusions or pneumothorax. Prominent markings in the left lung base. OTHER: No free air under the diaphragm. Degenerative changes of the spine. IMPRESSION: No acute cardiopulmonary pathology. Reviewed, dictated and finalized at location A.
--- NOTE | ~2023-09-24 | CT_ITS ---
CT abdomen pelvis w con Ordering provider: Chrisyt Rosales PA-C History: 63 years Female with . AMS, weak, hx of diverticulitis and colitis . Comparison: September 05, 2023 Technique: CT abdomen and pelvis with IV and without oral contrast. Automated exposure control and it erative reconstruction technique were employed. The dose-length product was 432.69 mGy-cm. 100 mL Omn ipaque 350 was given IV. Findings: VISUALIZED LOWER CHEST: Normal. UPPER ABDOMINAL ORGANS: Liver: Cyst is seen measuring 1.8 x 2.3 cm unchanged from previous examination. Fat infiltration. Gallbladder: Status post cholecystectomy. Minimal fluid seen in the area adjacent to which measures 3 .1 x 1.9cm. Which appears to be in the subcapsular area of the liver. Spleen: Normal. Stomach/duodenum: Sliding hiatus hernia. Pancreas: Normal. Adrenals: Normal. Kidneys: Tiny cyst in the left kidney lower pole. PELVIC ORGANS: The bladder is underfilled. BOWEL AND MESENTERY: Colon: Thickened wall of the sigmoid colon is seen with fat stranding seen in the area of the junctio n between the descending colon and the sigmoid colon suggestive of diverticulitis. No definite absces s formation seen. No free air is seen. Small pocket of air is seen adjacent to the colon suggestive o f fat infiltration in the area. Fecal material is seen in the proximal colon slight thickening of the wall of the ascending colon is also noted. Normal appendix. Small Bowel: Fluid in the small bowel No obstruction. Peritoneum/mesentery: No free air or free fluid. No mesenteric lymphadenopathy. Cystic mass is seen in the right side of the pelvis which may be cystadenoma unchanged from previous examination. RETROPERITONEUM: Mild atheromatous disease of the abdominal aorta. No retroperitoneal lymphadenopat hy. MUSCULOSKELETAL: Superficial soft tissues: The superficial soft tissues are normal. Bones: Age appropriate degenerative changes of the spine. IMPRESSION: 1. Thickened wall of the sigmoid colon suggestive of colitis. Diverticulitis at the junction of the descending and sigmoid colon is seen with a small pocket of air suggestive of perforation. No free ai r in the abdomen seen. No fluid in this area is noted. 2. Large cystic mass in the right side of the pelvis most likely cystadenoma unchanged. 3. Liver Subcapsular collection near to the area of the gallbladder. 4. Hepatic cyst. 5. Constipation Reviewed, dictated and finalized at location A. IMPRESSION: 1. Thickened wall of the sigmoid colon suggestive of colitis. Diverticulitis a t the junction of the descending and sigmoid colon is seen with a small pocket of air suggestive of perforation. No free air in the abdomen seen. No fluid in this area is noted. 2. Large cystic mass in the right side of the pelvis most likely cystadenoma u nchanged. 3. Liver Subcapsular collection near to the area of the gallbladder. 4. Hepatic cyst. 5. Constipation
[2023-09-24 19:07] LABS: Basophils Percent Auto 0.3 % (0.2-1.2); Eosinophils Percent Auto 0.1 % (0-4.4); Hematocrit 26.7 % (37.0-47.0); Hemoglobin 8.3 g/dL (12.0-15.0); Immature Granulocyte Absolute 0.06 K/mm3 (0.00-0.031); Immature Granulocyte Percent A 0.5 % (0-0.5); Lymphocytes Absolute Auto 1.13 K/mm3 (0.9-3.2); Mean Corpuscular HGB Conc 31.1 g/dl (32-36); Mean Corpuscular Hemoglobin 24.1 pg (26-34); Mean Corpuscular Volume 77.4 fl (80-100); Mean Platelet Volume 8.4 fl (7.4-10.4); Monocytes Absolute Auto 1.1 K/mm3 (0.1-0.6); Monocytes Percent Auto 9.9 % (2.6-8.5); Neutrophils Percent Auto 79.2 % (45.5-73.1); Platelet Count Result 428 k/mm3 (150-375); Red Blood Count 3.45 M/mm3 (4.2-5.4); Red Cell Distribution Width 16.8 % (11.5-14.5); White Blood Count 11.3 K/mm3 (4.5-10.0)
[2023-09-24 19:17] LABS: Alanine Aminotransferase 14 U/L (6-35); Albumin Level 2.7 g/dL (3.5-5.1); Alkaline Phosphatase 124 U/L (38-126); Anion Gap 11 mmol/L (4-12); Aspartate Amino Transferase 25 U/L (14-36); Bilirubin,Total 0.8 mg/dL (0.2-1.3); Blood Urea Nitrogen 15 mg/dL (7-17); Carbon Dioxide 24 mmol/L (22-30); Chloride 92 mmol/L (98-107); Estimated CRCL calculation 39 ml/min; Estimated Glomerular Filt Rate 56; Glucose 151 mg/dL (65-110); Potassium 3.2 mmol/L (3.4-5.0); Sodium 127 mmol/L (137-145)
[2023-09-24 19:33] LABS: Influenza A QL RT-PCR Negative (Negative); Influenza B QL RT-PCR Negative (Negative); RSV RNA, RT-PCR Negative (Negative); SARS-CoV-2 RNA PCR Negative (Negative)
--- NOTE | 2023-09-24 19:34 | ECG_ITS ---
Test Date: 2023-09-24 19:56:43 Measurements Intervals [place] Rate: 88 P: 29 VA: 151 QRS: -18 QRSD: 91 T: -1 QT: 348 QTc: 422 Interpretive Statements SINUS RHYTHM NONSPECIFIC T-WAVE ABNORMALITY BORDERLINE ECG Compared to ECG 09/06/2023 07:40:13 No significant changes Electronically Signed On 09-25-2023 07:13:45 CDT by Eliseo Terrell M.D.
[2023-09-24] MEDS: POTASSIUM CHLORIDE 20 MEQ PACKET (FOR LIQUID) 40 MEQ PO (19:57)
[2023-09-24] MEDS: SODIUM CHLORIDE 0.9% IV 1,000 ML 999 ML IV CONT ×2 (19:57→22:43)
[2023-09-24 20:11] LABS: Lactic Acid Reflex 0.9 mmol/L (0.7-2.0)
[2023-09-24 20:16] LABS: INR 1.2; Prothrombin Time 15.5 Seconds (11.1-14.7)
[2023-09-24 20:17] LABS: Partial Thromboplastin Time 37.1 Seconds (22.3-36.8)
[2023-09-24 21:06] LABS: Lipase 55 U/L (23-300); Magnesium 1.7 mg/dL (1.6-2.3)
[2023-09-24 21:17] LABS: Add Urine Microscopic? YES; Appearance Urine Clear (Clear); Bacteria Urine None Seen /hpf; Bilirubin Urine Negative (Negative); Blood Urine Non-Hemolyzed Trace (Negative); Color Urine Yellow (Yellow); Glucose Urine UA Negative (Negative); Ketones Urine Negative (Negative); Leukocyte Esterase Ur 2+ LEU/UL (Negative); Need Manual Microscopic Reviewed; Nitrate Urine Negative (Negative); Non Pathogenic Casts 0-2; Protein Urine Negative (Negative); RBC Urine 0-2 /hpf (0-2); Specific Grav Ur 1.023 (1.001-1.035); Squamous Epithelial Cell Urine None Seen /hpf (Few); WBC Urine 21-50 /hpf (0-3)
[2023-09-24 21:19] LABS: Troponin I < 0.012 ng/mL (0.000-0.034)
--- NOTE | 2023-09-24 21:34 | ED.WEAKNESS ---
HPI - Weakness General Chief complaint: Weakness Stated complaint: weakness-colitis Time Seen by Provider: 09/24/23 18:47 History of Present Illness HPI Narrative: 63-year-old female with a history of diverticulitis, CKD, T2DM,Ulcerative chronic proctitis, hypertension, anal fistula s/p anal fistulotomy, hemorrhoidectomy, tubal ligationlarge ovarian cyst that is being followed outpatient and slough, chronic diarrhea for 1 year and recent laparoscopic cholecystectomy on 09/10/[address] Bowling presents to the emergency department for generalized weakness today. Patient's family is at bedside he states today when the patient was trying to get to the restroom her legs went out from under her. States he had to carry her to the restroom. She then had a large episode of diarrhea and has been feeling weak since. When patient was admitted in August for a cholecystectomy, she was also found to have diverticulitis. States she was on Augmentin for 1 week and finished her antibiotics several days ago. She went to her GI physician's office today, Dr. Alcocer, as and was advised to come to the ED for further evaluation. She is reporting generalized weakness but states this does seem to have improved since she has been in the ED. She reports decreased p.o. intake, subjective fever and chills. Denies focal abdominal pain, chest pain shortness of breath, cough or congestion. Patient's at bedside states that the patient seemed lethargic and confused earlier today. States she seems back to her baseline now. Related Data Home Medications Medication Instructions Recorded Confirmed metformin 500 mg tablet 1,000 mg PO BID 12/03/20 09/25/23 losartan 25 mg tablet 25 mg PO DAILY 05/01/22 09/25/23 Allergies Allergy/AdvReac Type Severity Reaction Status Date / Time azithromycin AdvReac Intermediate Rash Verified 09/25/23 00:40 Review of Systems Review of Systems: All systems reviewed & are unremarkable except as noted in HPI and below PMFSH Past Medical History Medical History Chronic anemia Chronic kidney disease Essential hypertension Inflammatory bowel disease (ulcerative colitis) Type 2 diabetes mellitus Surgical History Surgical History Anal fistula Anal fistulotomy on 02/12/22 History of ear surgery History of laparoscopic cholecystectomy 09/10/23 Hx of hemorrhoidectomy 05/08/22 Hx of tubal ligation Family History Family History Other Diabetes mellitus Social History Social History Social History: Patient lives with her of 42 years. They had a set of fraternal twins. Their son is healthy. The daughter as congenital heart disease with large ASD that was not identified until she was in her 20s. 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 She is a lifelong nonsmoker and does not drink alcohol or use illicit substances. Code status: Full code (she would not want long-term intubation, tracheostomy or feeding tube) Surrogate decision maker: Sj () Smoking status: Never smoker Second hand tobacco smoke exposure: No Alcohol intake: never Substance use: never Substance use type: does not use Do You Feel Safe in your Home?: Yes Lack of Transportation: No Lack of Food: Never True Current Housing: I Have Housing Concerned About Future Housing: No Difficulty Paying Gas/Electric Bills: No Difficulty Paying for Meds: No Currently Unemployed: No Education: Associate Degree Difficulty w/ Childcare or Family Care: No Living arrangements: with family Occupation/Education: occupation Gender identity (if verbalized by the patient): Female Sexual Orientation (if Verbalized by the Patient): Straight or Heterosexual
[2023-09-24] MEDS: PIPERACILLN/TAZ 3.375GM/NS50ML 3.375 GM/50 ML BAG IVPB (22:44)
[2023-09-25] VITALS (12 sets, daily range): BP systolic 106–132; BP diastolic 56–71; PULSE 73–94; RESP 14–18; TEMP 36–36.6; O2SAT 98–100; BMI 25.7
--- NOTE | 2023-09-25 | ECHO_ITS ---
Patient Info Name: Farhana Russo Age: 63 years : 1960 Gender: Female Ht: 62 in Wt: 140 lbs BSA: 1.68 m2 HR: 78 bpm BP: 132 Heart Rhythm: Sinus Rhythm Technical Quality: Good Exam Date: 09/25/2023 3:28 PM Exam Location: Echo Lab Patient Status: Outpatient Admit Date: 09/24/2023 Staff Ordering Physician: Wilma Ferro DO Tnt Line Supervisor: Kate Guzman RDCS Attending Provider: Wilma Ferro DO Referring Physician: Pillo MILLER; Exam Type: CA echo doppler color flow Study Info Indications - MURMUR Complete two-dimensional, color flow and Doppler transthoracic echocardiogram is performed. Summary 1. Complete two-dimensional, color flow and Doppler transthoracic echocardiogram is performed. 2. Normal left ventricular dimension, systolic and diastolic function. 3. Borderline left atrial enlarged. 4. Trivial MR. Left Ventricle Left ventricular chamber dimension is normal. Left ventricular systolic function is normal, estimated at 55-60%. The left ventricular diastolic function is normal. Right Ventricle Right ventricular chamber dimension is normal. Left Atria Left atrial chamber dimension is mildly enlarged. Right Atria Right atrial chamber dimension is normal. Aortic Valve The aortic valve is normal. Pulmonic Valve The pulmonic valve is normal. Mitral Valve The mitral valve has normal leaflets. There is trace mitral valve regurgitation. Tricuspid Valve The tricuspid valve leaflets are normal. Pericardium/Pleural The pericardium appears normal. Aorta The aortic root size at the sinus of Valsalva is normal. Left Ventricular Outflow Tract Name Value Normal LVOT 2D LVOT Diameter 2.0 cm LVOT Doppler LVOT Peak Gradient 3 mmHg LVOT Mean Gradient 2 mmHg LVOT VTI 19 cm LVOT VTI/AV VTI Ratio 0.6 LVOT Stroke Volume 57 ml LVOT CO 6.7 l/min LVOT CI 4.0 l/min/m2 Pulmonic Valve Name Value Normal PV Doppler PV Peak Gradient 9 mmHg Mitral Valve Name Value Normal MV Doppler MV Decel Fajardo 458 cm/s2 MV PHT 55 ms MV Area (PHT) 4.0 cm2 4.0-5.0 MV Diastolic Function MV E Peak Velocity 87 cm/s MV A Peak Velocity 88 cm/s MV E/A 1.0 MV Decel Time 189 ms
[2023-09-25] MEDS: PIPERACILLN/TAZ 3.375GM/NS50ML 3.375 GM/50 ML BAG IVPB ×4 (03:22→20:52)
--- NOTE | 2023-09-25 05:04 | PM.IMHP ---
H&P: HPI History of Present Illness Date/Time: 09/25/23 05:04 Chief Complaint: Weakness, diarrhea Narrative: 63-year-old female with a past medical history of recent acute cholecystitis status post laparoscopic cholecystectomy, fatty liver, nonobstructing kidney stones, type 2 diabetes mellitus well controlled, ulcerative colitis on mesalamine, microcytic anemia, B12 deficiency and essential hypertension presented to the ER with diarrhea, worsening weakness and now unable to walk. The patient has been having unintentional weight loss since June. She has been having abdominal cramping and associated soft stools since 2021. However the frequency and amount of loose stools and watery stools has increased. She is also having mucousy stools with intermittent episodes of blood. She has to wear depends or pads due to frequent leakage of stool. She is nauseous much of the time and has markedly decreased appetite. She was hospitalized September 04 through September 10 due to fever, heartburn symptoms and abdominal pain. She had a HIDA scan which demonstrated acute cholecystitis and underwent laparoscopic cholecystectomy by Dr. Bowling. Her gallbladder was packed with stones. She had evaluation for anemia with low iron levels, ferritin was within normal limits, and B12 level was low. It is unclear if she had B12 supplementation provided. Her hemoglobin remains stable throughout her hospitalization. She was discharged home on Augmentin which she completed several days ago. She is still having subjective fevers and chills. Her weight is similar to her prior visit. She is still having the mushy stools but somewhat more formed than previous. She still has mucousy stools. She has not noticed any recent hematochezia or melena. Her aws solution architect is Dr. Alcocer. Review of Systems Review of Systems: 12 systems were reviewed with pertinent positives and negatives per HPI. Except as documented in the HPI, all other systems were reviewed and are negative. [facility] Past Medical History Medical History (Updated 09/25/23 @ 09:18 by Wilma Ferro DO) Chronic anemia Chronic kidney disease Essential hypertension Inflammatory bowel disease (ulcerative colitis) Type 2 diabetes mellitus Surgical History Surgical History (Updated 09/25/23 @ 09:00 by Wilma Ferro DO) Anal fistula Anal fistulotomy on 02/12/22 History of ear surgery History of laparoscopic cholecystectomy (09/10/23) Dr. Bowling Hx of hemorrhoidectomy 3/22/23 Hx of tubal ligation Family History Family History Other Diabetes mellitus Social History Social History Social History: Patient lives with her of 42 years. They had a set of fraternal twins. Their son is healthy. The daughter as congenital heart disease with large ASD that was not identified until she was in her 20s. 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 She is a lifelong nonsmoker and does not drink alcohol or use illicit substances. Code status: Full code (she would not want long-term intubation, tracheostomy or feeding tube) Surrogate decision maker: Sj () Smoking status: Never smoker Second hand tobacco smoke exposure: No Alcohol intake: never Substance use: never Substance use type: does not use Do You Feel Safe in your Home?: Yes Lack of Transportation: No Lack of Food: Never True Current Housing: I Have Housing Concerned About Future Housing: No Difficulty Paying Gas/Electric Bills: No Difficulty Paying for Meds: No Currently Unemployed: No Education: Associate Degree Difficulty w/ Childcare or Family Care: No Living arrangements: with family Occupation/Education: occupation Gender identity (if verbalized by the patient): Female Sexual Orientation (if Verbalized by the Patient): Straight or Hetero
[2023-09-25 09:22] LABS: Hematocrit 25.6 % (37.0-47.0); Hemoglobin 7.7 g/dL (12.0-15.0); Mean Corpuscular HGB Conc 30.1 g/dl (32-36); Mean Corpuscular Volume 79.8 fl (80-100); Mean Platelet Volume 8.2 fl (7.4-10.4); Platelet Count Result 344 k/mm3 (150-375); Red Blood Count 3.21 M/mm3 (4.2-5.4); Red Cell Distribution Width 16.7 % (11.5-14.5); White Blood Count 6.4 K/mm3 (4.5-10.0)
[2023-09-25] MEDS: SODIUM CHLORIDE 0.9% IV 1,000 ML 100 ML IV CONT ×2 (09:25→20:52)
[2023-09-25 09:35] LABS: Anion Gap 9 mmol/L (4-12); Blood Urea Nitrogen 13 mg/dL (7-17); Calcium 7.7 mg/dL (8.4-10.2); Carbon Dioxide 23 mmol/L (22-30); Chloride 100 mmol/L (98-107); Estimated CRCL calculation 43 ml/min; Estimated Glomerular Filt Rate > 60; Glucose 96 mg/dL (65-110); Potassium 3.5 mmol/L (3.4-5.0); Sodium 132 mmol/L (137-145)
[2023-09-25] MEDS: CYANOCOBALAMIN INJ 1,000 MCG/ML VIAL 1000 MCG IM (09:56)
--- NOTE | 2023-09-25 11:30 | PM.CNGS ---
Assessment and Plan Assessment and plan (1) Diverticulitis: Code(s): K57.92 - Diverticulitis of intestine, part unspecified, without perforation or abscess without bleeding Status: Acute Assessment and Plan: CT showed diverticulitis with microperforation. Abdominal exam benign. Not having really any abdominal pain and more complaining of diarrhea and poor appetite. Continue IV antibiotics and IV fluids. Will start advancing diet as tolerated. No indication for urgent surgical intervention at this time. Continue to monitor with serial abdominal exams and labs. (2) History of laparoscopic cholecystectomy: Onset Date: 09/10/23 Code(s): Z90.49 - Acquired absence of other specified parts of digestive tract Status: Resolved Assessment and Plan: Healing well from the laparoscopic cholecystectomy. Incisions healing well. CT showed a small 3 cm fluid collection in the subcapsular area of the liver. She is not having any RUQ pain or tenderness on exam. Likely incidental finding following surgery. She is 2 weeks postop and would next expect this to be related to a bile leak. Liver enzymes are all normal. (3) Ovarian mass: Code(s): N83.8 - Other noninflammatory disorders of ovary, fallopian tube and broad ligament Status: Acute Assessment and Plan: Scheduled to see Gynecology at [facility] on the . (4) Diarrhea: Qualifiers: Diarrhea type: unspecified type Qualified Code(s): R19.7 - Diarrhea, unspecified Code(s): R19.7 - Diarrhea, unspecified Status: Acute (5) Type 2 diabetes mellitus: Qualifiers: Diabetes mellitus longterm insulin use: without longterm use Diabetes mellitus complication status: without complication Qualified Code(s): E11.9 - Type 2 diabetes mellitus without complications Code(s): E11.9 - Type 2 diabetes mellitus without complications Status: Chronic Plan I have discussed the patient's case and plan of care with Dr. Boothe. Thank you for allowing us to see the patient in consultation and we will continue to follow along with you. History of Present Illness Consult details Consult date: 09/25/23 Reason for consult: other (Diverticulitis with perforation) Requesting physician: Christy Rosales PA-C Narrative: This is a 63-year-old woman who is known to our service from a recent laparoscopic cholecystectomy by Dr. Bowling on 09/10/2023. She was evaluated during her last hospitalization in August for diverticulitis, proctitis, and an ovarian cystic mass. Her diverticulitis improved, but she continued to have postprandial symptoms related to chronic cholecystitis that prompted her cholecystectomy. She was discharged and was seen in follow-up by Dr. Bowling 3 days ago in our office. At that time, she was healing well from surgery but having persistent diarrhea and rectal drainage. Dr. Bowling requested GI see her this weekend she was evaluated by a nurse practitioner in the GI office yesterday. She had further decline over the 2 days between her office visits with now a fever, generalized weakness, and tachycardia. They then referred her to the ED for evaluation. [place] [address], sodium 127, potassium 3.2. Head CT negative. Chest x-ray negative. CT scan of the abdomen and pelvis showed thickened wall of the sigmoid colon suggestive of colitis, diverticulitis at the junction of the descending and sigmoid colon with a small pocket of air suggestive of perforation, no abscess, large cystic mass in the right side of the pelvis most likely unchanged cystadenoma, liver subcapsular collection near the area of the gallbladder, hepatic cyst, and constipation. She was admitted to the hospitalist service and started on IV antibiotics. Liver enzymes are all normal. She is also having poor appetite and has primarily been on a liquid diet since her last hospitalization. She reports losing approximately 8 lb. Her albumin i
--- NOTE | 2023-09-25 13:19 | PM.IMPN ---
Progress Note: A&P Assessment and Plan (1) Diverticulitis: Code(s): K57.92 - Diverticulitis of intestine, part unspecified, without perforation or abscess without bleeding Status: Acute Plan Colitis and diverticulitis with micro perforation And diarrhea Continue Zosyn, follow blood cultures. Continue IV fluid, advance diet as tolerated. Surgery consulted evaluation noted. Hyponatremia On admission 127 today 132, on insulin continue IV fluid. Generalized weakness Diarrhea Patient reported improved and today is likely level care. Pelvic mass Patient has a [facility] appointment on the . Type 2 diabetes Continue sliding scale insulin with Accu-Cheks, diabetic diet. Failure to thrive/protein energy malnutrition poor appetite past couple months Started on dronabinol Monitor DVT prophylaxis subQ Lovenox. Subjective Date/time seen: 09/25/23 13:19 Interval history: Comfortable bedside, patient is still having diarrhea. The patient having diarrhea for a thebout a he moans, describes perfused. Noted a poor appetite. Patient noted she has an appointment set up with [facility] on the . Exam Narrative: General: alert and comfortable Eyes: EOMI, PERRLA ENNT External ears normal, Neck is supple, no masses, Respiratory systems: Clear to auscultation Cardiovascular S1, S2, normal rhythm, no murmur, rub, or gallop; no thrill or palpable murmurs on palpation. Gastrointestinal: soft, non-tender, and non-distended abdomen with no masses; BS present Skin: no rash, lesions, ulcerations, subcutaneous nodules or induration Musculoskeletal: no abnormality and no tenderness, normal ROM Neurologic: Alert and oriented x3, non focal Mental Status Exam: normal affect Objective Data Vital Signs Vital Signs: Vital Signs - 24 hr 09/24/23 16:49 09/24/23 19:05 09/24/23 19:31 Temperature 98.2 F Pulse Rate 100 90 93 Respiratory Rate 16 14 18 Blood Pressure 104/54 L 105/54 L 117/61 Pulse Oximetry 100 99 98 Oxygen Delivery Fraction of Inspired Oxygen 09/24/23 19:46 09/24/23 20:45 09/24/23 21:12 Temperature Pulse Rate 87 97 56 L Respiratory Rate 15 14 20 Blood Pressure 116/62 126/64 Pulse Oximetry 98 100 100 Oxygen Delivery Fraction of Inspired Oxygen 09/24/23 22:06 09/24/23 23:07 09/25/23 00:48 Temperature Pulse Rate 89 89 Respiratory Rate 18 18 Blood Pressure 125/60 129/66 Pulse Oximetry 99 100 Oxygen Delivery Room Air Fraction of Inspired Oxygen 09/25/23 00:46 09/25/23 00:30 09/25/23 04:01 Temperature 96.8 F L Pulse Rate 84 90 73 Respiratory Rate 18 Blood Pressure 131/71 Pulse Oximetry 100 Oxygen Delivery Fraction of Inspired Oxygen 09/25/23 06:00 09/25/23 08:43 09/25/23 08:00 Temperature 97.0 F L Pulse Rate 80 78 Respiratory Rate 14 Blood Pressure 132/64 Pulse Oximetry 99 99 Oxygen Delivery Room Air Fraction of Inspired Oxygen 21 09/25/23 12:00 09/25/23 00:42 Temperature 96.8 F L Pulse Rate 80 90 Respiratory Rate Blood Pressure 131/71 Pulse Oximetry Oxygen Delivery Fraction of Inspired Oxygen Intake/Output Intake/Output: Intake & Output 09/22/23 09/23/23 09/24/23 09/25/23 23:59 23:59 23:59 23:59 Intake Total 1050 1170 Output Total 100 Balance 1050 1070 Meds/Results Medications: Active Medications Generic Name Dose Route Start Last Admin Trade Name Freq PRN Reason Stop Dose Admin Cyanocobalamin 1,000 mcg 09/25/23 09:00 Cyanocobalamin Inj 1,000 Mcg/Ml Vial IM Th@0900 [facility] Ferrous Sulfate 325 mg 09/26/23 09:00 Ferrous Sulfate [address] PO DAILY DARIN Piperacillin/Tazobactam/Dextrose 3.375 gm in 50 mls @ 100 mls/hr 09/25/23 03:00 09/25/23 09:26 Zosyn 3.375 Gm/Ns 50 Ml IVPB 100 mls/hr Q6H DARIN Administration Sodium Chloride 1,000 mls @ 100 mls/hr 09/25/23 09:10 09/25/23 09:25 Normal Saline Iv IV CO
[2023-09-25] MEDS: droNABinol (*CRX) 2.5 MG CAPSULE PO (18:33)
[2023-09-25] MEDS: MAGNES & ALUM HYD/SIMETH/DIPHENHYD/LIDOCAINE 119 ML MOUTHWASH BY MOUTH (20:51)
[2023-09-25] MEDS: MESALAMINE 1,000 MG SUPP.RECT 1000 MG RECTAL (20:51)
[2023-09-26] VITALS (16 sets, daily range): BP systolic 124–143; BP diastolic 56–71; PULSE 60–97; RESP 16–18; TEMP 36.3–37.5; O2SAT 98–100
[2023-09-26] MEDS: PIPERACILLN/TAZ 3.375GM/NS50ML 3.375 GM/50 ML BAG IVPB ×2 (03:38→07:46)
[2023-09-26 06:06] LABS: Basophils Percent Auto 0.7 % (0.2-1.2); Eosinophils Absolute Auto 0.3 K/mm3 (0-0.3); Eosinophils Percent Auto 4.2 % (0-4.4); Hematocrit 23.1 % (37.0-47.0); Immature Granulocyte Absolute 0.02 K/mm3 (0.00-0.031); Immature Granulocyte Percent A 0.3 % (0-0.5); Lymphocytes Absolute Auto 0.94 K/mm3 (0.9-3.2); Lymphocytes Percent Auto 15.3 % (18.3-44.2); Mean Corpuscular HGB Conc 29.4 g/dl (32-36); Mean Corpuscular Hemoglobin 23.4 pg (26-34); Mean Corpuscular Volume 79.7 fl (80-100); Mean Platelet Volume 8.3 fl (7.4-10.4); Monocytes Absolute Auto 0.7 K/mm3 (0.1-0.6); Monocytes Percent Auto 10.7 % (2.6-8.5); Neutrophils Absolute Auto 4.2 K/mm3 (1.3-6.7); Neutrophils Percent Auto 68.8 % (45.5-73.1); Platelet Count Result 319 k/mm3 (150-375); Red Cell Distribution Width 16.9 % (11.5-14.5); White Blood Count 6.2 K/mm3 (4.5-10.0)
[2023-09-26 06:18] LABS: Alanine Aminotransferase 9 U/L (6-35); Albumin Level 2.1 g/dL (3.5-5.1); Alkaline Phosphatase 86 U/L (38-126); Anion Gap 8 mmol/L (4-12); Aspartate Amino Transferase 15 U/L (14-36); Bilirubin,Total 0.4 mg/dL (0.2-1.3); Blood Urea Nitrogen 11 mg/dL (7-17); Calcium 7.3 mg/dL (8.4-10.2); Carbon Dioxide 21 mmol/L (22-30); Chloride 103 mmol/L (98-107); Estimated CRCL calculation 39 ml/min; Estimated Glomerular Filt Rate 56; Glucose 80 mg/dL (65-110); Potassium 3.1 mmol/L (3.4-5.0); Sodium 132 mmol/L (137-145)
[2023-09-26 06:35] LABS: Hemoglobin 6.8 g/dL (12.0-15.0)
[2023-09-26 06:36] LABS: Anisocytosis 1+; Hypochromasia 1+; Platelet Estimate Adequate (Adequate); Schistocytes None Seen
[2023-09-26] MEDS: LOSARTAN POTASSIUM 25 MG TABLET PO (07:47)
[2023-09-26] MEDS: ENOXAPARIN 40 MG/0.4 ML SYRINGE SUB-Q (07:47)
[2023-09-26] MEDS: droNABinol (*CRX) 2.5 MG CAPSULE PO ×2 (07:47→17:00)
[2023-09-26] MEDS: FERROUS SULFATE 325 MG TABLET DR PO (07:47)
--- NOTE | 2023-09-26 09:09 | PM.PNGS ---
Progress Note: A&P Assessment and Plan (1) Diverticulitis of colon with perforation: Code(s): K57.20 - Diverticulitis of large intestine with perforation and abscess without bleeding Status: Acute Assessment and Plan: exam improved and completely benign, will advance to low fiber diet, cont abx (2) Anemia: Code(s): D64.9 - Anemia, unspecified Status: Acute Assessment and Plan: ? etiology, no obvious bleeding source, will get GI consultation, transfusion today per primary team Subjective Subjective Date/Time Seen: 09/26/23 09:09 Interval history: feels ok, no abd pain, [place] full liquids, no obvious bleeding source Review of Systems Review of Systems: All systems reviewed & are unremarkable except as noted in HPI and below Exam Const: General: cooperative, comfortable and no acute distress Resp: Auscultation: clear to auscultation bilaterally Cardio: Rate: regular rate Rhythm: regular rhythm GI: Inspection: normal to inspection and non-distended GI Palp: No abdominal tenderness, Yes Soft to palpation, No Tenderness to palpation present (GI), No Guarding due to palpation present (GI) and No Rigid due to palpation Objective Data Vital Signs Vital Signs: Vital Signs - 24 hr 09/25/23 12:00 09/25/23 14:00 09/25/23 16:05 Temperature 36.6 C Pulse Rate 80 78 Respiratory Rate 14 Blood Pressure 116/58 L Pulse Oximetry 99 Oxygen Delivery Room Air Fraction of Inspired Oxygen 09/25/23 16:00 09/25/23 20:00 09/25/23 20:00 Temperature Pulse Rate 83 91 83 Respiratory Rate 14 Blood Pressure Pulse Oximetry 99 Oxygen Delivery Room Air Fraction of Inspired Oxygen 21 09/25/23 22:00 09/26/23 00:00 09/26/23 04:00 Temperature 36.4 C L Pulse Rate 94 60 60 Respiratory Rate 18 Blood Pressure 106/56 L Pulse Oximetry 98 Oxygen Delivery Fraction of Inspired Oxygen 09/26/23 05:42 Temperature 36.7 C Pulse Rate 79 Respiratory Rate 16 Blood Pressure 124/64 Pulse Oximetry 99 Oxygen Delivery Fraction of Inspired Oxygen Intake/Output Intake/Output: Intake & Output 09/23/23 09/24/23 09/25/23 09/26/23 23:59 23:59 23:59 23:59 Intake Total 1050 2600 50 Output Total 300 Balance 1050 2300 50 Meds/Results Medications: Active Medications Generic Name Dose Route Start Last Admin Trade Name Freq PRN Reason Stop Dose Admin Cyanocobalamin 1,000 mcg 09/25/23 09:00 09/25/23 09:56 Cyanocobalamin Inj 1,000 Mcg/Ml Vial IM 1,000 mcg Th@0900 DARIN Administration Dronabinol 2.5 mg 09/25/23 17:00 09/26/23 07:47 Dronabinol (*Crx) 2.5 Mg Capsule PO 2.5 mg BID DARIN Administration Enoxaparin Sodium 40 mg 09/26/23 09:00 09/26/23 07:47 Enoxaparin 40 Mg/0.4 Ml Syringe SUB-Q 40 mg DAILY DARIN Administration Ferrous Sulfate 325 mg 09/26/23 09:00 09/26/23 07:47 Ferrous Sulfate [address] PO 325 mg DAILY DARIN Administration Piperacillin/Tazobactam/Dextrose 3.375 gm in 50 mls @ 100 mls/hr 09/25/23 03:00 09/26/23 07:46 Zosyn 3.375 Gm/Ns 50 Ml IVPB 100 mls/hr Q6H DARIN Administration Sodium Chloride 1,000 mls @ 100 mls/hr 09/25/23 09:10 09/25/23 20:52 Normal Saline Iv IV CONT 100 mls/hr .Q10H DARIN Administration Sodium Chloride 250 mls @ 30 mls/hr 09/26/23 07:31 Normal Saline Iv IV CONT 09/26/23 15:50 .Q8H20M STA Albumin Human 100 mls @ 60 mls/hr 09/26/23 12:00 Albutein IVPB Q6HR DARIN Lidocaine/Diphenhydr/Alum/Mg/Simeth 5 ml 09/25/23 18:47 09/25/23 20:51 Magnes & Alum Hyd/Simeth/Diphenhyd/Lidocaine 119 Ml Mouthwash BY MOUTH 10/25/23 20:59 5 ml Q4HR PRN Administration mouth pain Losartan Potassium 25 mg 09/26/23 09:00 09/26/23 07:47 Losartan Potassium 25 Mg Tablet PO 25 mg DAILY DARIN Administration Mesalamine 1,000 mg 09/25/23 21:00 09/25/23 20:51 Mesalamine 1,000 Mg Supp.Rect RECTAL 1,000 mg HS DARIN Administratio
--- NOTE | 2023-09-26 10:00 | P.CONGI_ITS ---
I, Jefe Alcocer MD, have provided a substantive portion of the care of this patient and discussed the patient with my Nurse Practitioner. I have reviewed any new relevant radiographic and laboratory results including medications. I agree with her documentation as noted below.?I personally performed the medical decision making and much of the history and exam for this encounter. briefly, she has known ulcerative proctitis with recent hospitalization when was found to have diverticulitis but also cholecystitis and underwent lap balaji (GB with multiple stones), also had large ovarian mass and she is supposed to see yard supervisor this coming Friday at [facility]. She is back with more discomfort, diarrhea, CT showed diverticulitis with possible perforation, also same ovarian mass possible cystoadenoma. Noted worsening anemia but she denies overt gib but no recent EGD. On abx, s/p blood transfusion with good hgb response Consider to transfer to tertiary center for evaluation of large adnexal mass- patient is quite worry about it and asking if she could be transferred. If patient is still here, we can do EGD on Friday to evaluate if ulcers given worsening anemia. Assessment and Plan Assessment and plan (1) Diverticulitis of colon with perforation: Code(s): K57.20 - Diverticulitis of large intestine with perforation and abscess without bleeding Status: Acute (2) Anemia: Qualifiers: Anemia type: iron deficiency Iron deficiency anemia type: chronic blood loss Qualified Code(s): D50.0 - Iron deficiency anemia secondary to blood loss (chronic) Code(s): D64.9 - Anemia, unspecified Status: Acute (3) Hyponatremia: Code(s): E87.1 - Hypo-osmolality and hyponatremia Status: Acute (4) Hypokalemia: Code(s): E87.6 - Hypokalemia Status: Acute (5) Diarrhea: Qualifiers: Diarrhea type: unspecified type Qualified Code(s): R19.7 - Diarrhea, unspecified Code(s): R19.7 - Diarrhea, unspecified Status: Acute (6) Rectal bleeding: Code(s): K62.5 - Hemorrhage of anus and rectum Status: Acute (7) Ulcerative proctitis: Qualifiers: Digestive disease complication type: other complication Qualified Code(s): K51.218 - Ulcerative (chronic) proctitis with other complication Code(s): K51.20 - Ulcerative (chronic) proctitis without complications Status: Acute (8) Weight loss: Code(s): R63.4 - Abnormal weight loss Status: Acute (9) Acid reflux: Qualifiers: Esophagitis presence: esophagitis presence not specified Qualified Code(s): K21.9 - Gastro-esophageal reflux disease without esophagitis Code(s): K21.9 - Gastro-esophageal reflux disease without esophagitis Status: Acute Plan 1. 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 family history negative for CRC or IBD. Last fecal calprotectin in May of [address] showed thickened wall of the sigmoid colon suggesting colitis. Diverticulitis at the junction of the descending and sigmoid colon seen with a small pocket of air suggestive of a perforation. Patient was seen by surgery who does not recommend surgical intervention at this time but recommended IV antibiotics and supportive care. The patient has been having unintentional weight loss of 35 lbs since last year. She has been having abdominal cramping and associated soft stools since 2021, she is currently having no abdom
--- NOTE | 2023-09-26 10:00 | WPDGICN ---
Assessment and Plan Assessment and plan (1) Diverticulitis of colon with perforation: Code(s): K57.20 - Diverticulitis of large intestine with perforation and abscess without bleeding Status: Acute (2) Anemia: Qualifiers: Anemia type: iron deficiency Iron deficiency anemia type: chronic blood loss Qualified Code(s): D50.0 - Iron deficiency anemia secondary to blood loss (chronic) Code(s): D64.9 - Anemia, unspecified Status: Acute (3) Hyponatremia: Code(s): E87.1 - Hypo-osmolality and hyponatremia Status: Acute (4) Hypokalemia: Code(s): E87.6 - Hypokalemia Status: Acute (5) Diarrhea: Qualifiers: Diarrhea type: unspecified type Qualified Code(s): R19.7 - Diarrhea, unspecified Code(s): R19.7 - Diarrhea, unspecified Status: Acute (6) Rectal bleeding: Code(s): K62.5 - Hemorrhage of anus and rectum Status: Acute (7) Ulcerative proctitis: Qualifiers: Digestive disease complication type: other complication Qualified Code(s): K51.218 - Ulcerative (chronic) proctitis with other complication Code(s): K51.20 - Ulcerative (chronic) proctitis without complications Status: Acute (8) Weight loss: Code(s): R63.4 - Abnormal weight loss Status: Acute (9) Acid reflux: Qualifiers: Esophagitis presence: esophagitis presence not specified Qualified Code(s): K21.9 - Gastro-esophageal reflux disease without esophagitis Code(s): K21.9 - Gastro-esophageal reflux disease without esophagitis Status: Acute Plan 1. 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 family history negative for CRC or IBD. Last fecal calprotectin in May of [address] showed thickened wall of the sigmoid colon suggesting colitis. Diverticulitis at the junction of the descending and sigmoid colon seen with a small pocket of air suggestive of a perforation. Patient was seen by surgery who does not recommend surgical intervention at this time but recommended IV antibiotics and supportive care. The patient has been having unintentional weight loss of 35 lbs since last year. She has been having abdominal cramping and associated soft stools since 2021, she is currently having no abdominal pain but is still having 4-6 liquid urgent BM's daily that are typically postprandial and occasionally contained trace amounts of blood or mucus. She has been using mesalamine enemas daily. Continue mesalamine suppositories Continue antibiotics Supportive care plan for outpatient colonoscopy to document mucosal healing, will avoid colonoscopy this visit given active inflammation and increased risk for perforation 2. Anemia / weakness / early satiety / weight loss/ reflux: The patient reports heartburn that has been occurring for the past few months and is worse after noon GERD triggering foods for. reflux has been occurring on a daily basis. No nausea or vomiting with the heartburn. She denies any difficult or painful swallowing or food getting stuck. The patient has lost 35 lbs since 2022. She reports early satiety and feeling full quickly after only a couple bites of food. Since admission HGB 8.3-->7 and HCT 27-->23. Patient is currently receiving 1 unit of PRBCs. Iron panel in August showed iron deficiency , repeat iron panel ordered results pending. in August B12 low at 228 unclear if this was supplemented. Folate was normal. Patient denies any signs of active GI bleeding to include hematemesis, hematochezia, or melena. DDX: Iron deficiency anemia secondary to GI blood loss vs IBD vs B12 deficiency versus malabsorption plan for EGD Friday which will allow us to evaluate for possible upper GI source of blood loss and obtain biopsies to rule out celiac s
[2023-09-26] MEDS: ALBUMIN HUMAN 25% 25 GM/100 ML 100 ML IVPB ×2 (12:22→17:00)
[2023-09-26 13:36] LABS: Hematocrit 32.5 % (37.0-47.0)
--- NOTE | 2023-09-26 13:46 | PM.IMPN ---
Progress Note: A&P Assessment and Plan (1) Diverticulitis: Code(s): K57.92 - Diverticulitis of intestine, part unspecified, without perforation or abscess without bleeding Status: Acute Plan Colitis and diverticulitis with micro perforation And diarrhea Continue Zosyn, blood culture pending, Urine culture positive for GNB, sepciation pending Continue IV fluid, advance diet as tolerated. Surgery consulted evaluation noted. Anemia r/o GI bleed b12/Folate, iron panel, haptoglobin and Retic count pending tentative protonix, GI following, endoscopy on Friday Hyponatremia On admission 127 today 132, continue IV fluid. Generalized weakness Diarrhea, resolved Patient reported improved and today is likely level care. 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 Type 2 diabetes Continue sliding scale insulin with Accu-Cheks, diabetic diet. Failure to thrive/protein energy malnutrition poor appetite past couple months Started on dronabinol Monitor DVT prophylaxis hold Lovenox pending GI bleed r/o . Subjective Date/time seen: 09/26/23 13:46 Interval history: Patient noted no more diarrhea. However hb 6.7 this morning, received 1 unit of pRBC Iron profile, B12/Folate, Rectic count and Haptoglobin pendign GI consulted Review of Systems Review of Systems: 12 systems were reviewed with pertinent positives and negatives per HPI. Except as documented in the HPI, all other systems were reviewed and are negative. Exam Narrative: General: alert and comfortable Eyes: EOMI, PERRLA ENNT External ears normal, Neck is supple, no masses, Respiratory systems: Clear to auscultation Cardiovascular S1, S2, normal rhythm, no murmur, rub, or gallop; no thrill or palpable murmurs on palpation. Gastrointestinal: soft, non-tender, and non-distended abdomen with no masses; BS present Skin: no rash, lesions, ulcerations, subcutaneous nodules or induration Musculoskeletal: no abnormality and no tenderness, normal ROM Neurologic: Alert and oriented x3, non focal Mental Status Exam: normal affect Const: Other: Well-developed, well-nourished, no acute distress HENMT: Other: Mucous membranes are tacky, no oral pharyngeal erythema Eyes: Other: Mild conjunctival pallor, no scleral icterus, pupils are equal and reactive Neck: Other: No JVD, no lymphadenopathy, supple Resp: Other: Clear to auscultation bilaterally, no increased work of breathing Cardio: Other: Regular rate, regular rhythm, 2+ bilateral radial pedal pulses, murmur GI: Other: Soft, nontender, nondistended, positive bowel sounds Skin: Other: Generalized pallor, non jaundice Neuro: Other: Alert oriented, speech is clear, no facial asymmetry Extrem: Other: No clubbing, cyanosis or edema Psych: Other: Appropriate mood and affect, pleasant and cooperative, judgment and insight intact Objective Data Vital Signs Vital Signs: Vital Signs - 24 hr 09/25/23 14:00 09/25/23 16:05 09/25/23 16:00 Temperature 97.8 F Pulse Rate 78 83 Respiratory Rate 14 Blood Pressure 116/58 L Pulse Oximetry 99 Oxygen Delivery Room Air Fraction of Inspired Oxygen 09/25/23 20:00 09/25/23 20:00 09/25/23 22:00 Temperature 97.5 F L Pulse Rate 91 83 94 Respiratory Rate 14 18 Blood Pressure 106/56 L Pulse Oximetry 99 98 Oxygen Delivery Room Air Fraction of Inspired Oxygen 21 09/26/23 00:00 09/26/23 04:00 09/26/23 05:42 Temperature 98.0 F Pulse Rate 60 60 79 Respiratory Rate 16 Blood Pressure 124/64 Pulse Oximetry 99 Oxygen Delivery Fraction of Inspired Oxygen 09/26/23 09:09 09/26/23 09:14 09/26/23 09:13 Temperature 97.4 F L 97.4 F L 97.4 F L Pulse Rate 87 87 87 Respiratory Rate 17 17 17 Blood Pressure 126/58 L 126/58 L 126/58 L Pulse Oximetry 99 99 99 Oxygen Delivery Fraction of I
[2023-09-26] MEDS: cefTRIAXone 2 GM/NS 100 ML 2 GM/100 ML BAG IVPB (14:15)
--- NOTE | 2023-09-26 14:50 | PCPTNOTE ---
attempted PT eval, pt just finish blood transfusion and not feeling well per RN, will follow when pt is feeling better
[2023-09-26 15:01] LABS: IFOB Positive Control Positive; Immunochemical Fecal Occult Bl Positive (N)
[2023-09-26 15:38] LABS: Toxigenic C. Diff NEGATIVE (NEGATIVE)
[2023-09-26] MEDS: metroNIDAZOLE 500 MG TABLET PO ×2 (17:00→20:50)
[2023-09-26] MEDS: SULFAMETHOXAZOLE/TRIMETHOPRIM 800/160 MG DS TABLET 1 TAB PO (17:00)
[2023-09-26] MEDS: MESALAMINE 1,000 MG SUPP.RECT 1000 MG RECTAL (20:50)
[2023-09-26] MEDS: PANTOPRAZOLE SODIUM IV 40 MG VIAL IV PUSH (20:51)
[2023-09-26 22:03] LABS: Iron 15 ug/dL (37-170)
[2023-09-26 22:07] LABS: Lactate Dehydrogenase 144 U/L (120-246)
[2023-09-26 22:30] LABS: Percent Iron Saturation 12 % (20-50)
[2023-09-27] VITALS (8 sets, daily range): BP systolic 125–150; BP diastolic 58–72; PULSE 81–99; RESP 16–22; TEMP 37.2–37.6; O2SAT 97–100
[2023-09-27] MEDS: ALBUMIN HUMAN 25% 25 GM/100 ML 100 ML IVPB ×4 (00:49→17:31)
[2023-09-27] MEDS: SODIUM CHLORIDE 0.9% IV 1,000 ML 100 ML IV CONT (00:50)
[2023-09-27] MEDS: metroNIDAZOLE 500 MG TABLET PO ×3 (05:32→20:20)
[2023-09-27 06:16] LABS: Basophils Percent Auto 0.7 % (0.2-1.2); Eosinophils Absolute Auto 0.2 K/mm3 (0-0.3); Eosinophils Percent Auto 3.9 % (0-4.4); Hemoglobin 8.1 g/dL (12.0-15.0); Immature Granulocyte Absolute 0.04 K/mm3 (0.00-0.031); Immature Granulocyte Percent A 0.7 % (0-0.5); Immature Reticulocyte Fraction 23.5 % (3.0-15.9); Lymphocytes Absolute Auto 1.02 K/mm3 (0.9-3.2); Lymphocytes Percent Auto 18.1 % (18.3-44.2); Mean Corpuscular HGB Conc 31.2 g/dl (32-36); Mean Corpuscular Hemoglobin 24.8 pg (26-34); Mean Corpuscular Volume 79.5 fl (80-100); Mean Platelet Volume 8.5 fl (7.4-10.4); Monocytes Absolute Auto 0.6 K/mm3 (0.1-0.6); Monocytes Percent Auto 10.4 % (2.6-8.5); Neutrophils Absolute Auto 3.7 K/mm3 (1.3-6.7); Neutrophils Percent Auto 66.2 % (45.5-73.1); Platelet Count Result 324 k/mm3 (150-375); Red Blood Count 3.27 M/mm3 (4.2-5.4); Red Cell Distribution Width 16.3 % (11.5-14.5); Reticulocyte Hemoglobin Conten 23.6 pg (28.2-36.6); Reticulocyte Percent 1.41 % (0.7-4.3); Reticulocytes Absolute 0.05 10^6/uL (0.02-0.10); White Blood Count 5.7 K/mm3 (4.5-10.0)
[2023-09-27 06:37] LABS: Alanine Aminotransferase 8 U/L (6-35); Albumin Level 2.5 g/dL (3.5-5.1); Alkaline Phosphatase 77 U/L (38-126); Anion Gap 10 mmol/L (4-12); Aspartate Amino Transferase 15 U/L (14-36); Bilirubin,Total 0.5 mg/dL (0.2-1.3); Blood Urea Nitrogen 6 mg/dL (7-17); Calcium 7.5 mg/dL (8.4-10.2); Carbon Dioxide 22 mmol/L (22-30); Chloride 103 mmol/L (98-107); Estimated CRCL calculation 43 ml/min; Estimated Glomerular Filt Rate > 60; Glucose 83 mg/dL (65-110); Magnesium 1.7 mg/dL (1.6-2.3); Potassium 2.7 mmol/L (3.4-5.0); Sodium 135 mmol/L (137-145)
[2023-09-27 07:32] LABS: Folic Acid 3.3 ng/mL (2.76->20)
[2023-09-27] MEDS: IRON SUCROSE COMPLEX 400 MG, IRON SUCROSE COMPLEX 100 MG in SODIUM CHLORIDE 0.9% IV 250 ML 78.57 MG IVPB (08:23)
[2023-09-27] MEDS: SULFAMETHOXAZOLE/TRIMETHOPRIM 800/160 MG DS TABLET 1 TAB PO ×2 (08:24→17:31)
[2023-09-27] MEDS: cefTRIAXone 2 GM/NS 100 ML 2 GM/100 ML BAG IVPB (08:24)
[2023-09-27] MEDS: LOSARTAN POTASSIUM 25 MG TABLET PO (08:24)
[2023-09-27] MEDS: FERROUS SULFATE 325 MG TABLET DR PO (08:24)
[2023-09-27] MEDS: PANTOPRAZOLE SODIUM IV 40 MG VIAL IV PUSH ×2 (08:25→20:23)
[2023-09-27] MEDS: ENOXAPARIN 40 MG/0.4 ML SYRINGE SUB-Q (08:25)
--- NOTE | 2023-09-27 08:41 | PM.PNGS ---
Progress Note: A&P Assessment and Plan (1) Diverticulitis of colon with perforation: Code(s): K57.20 - Diverticulitis of large intestine with perforation and abscess without bleeding Status: Acute Assessment and Plan: exam benign, [place] low fiber diet, cont abx (2) Anemia: Qualifiers: Anemia type: iron deficiency Iron deficiency anemia type: chronic blood loss Qualified Code(s): D50.0 - Iron deficiency anemia secondary to blood loss (chronic) Code(s): D64.9 - Anemia, unspecified Status: Acute Assessment and Plan: plan for EGD on Friday Subjective Subjective Date/Time Seen: 09/27/23 08:41 Interval history: no acute issues, received 2 u PRBC yesterday Review of Systems Review of Systems: All systems reviewed & are unremarkable except as noted in HPI and below Exam Const: General: cooperative, comfortable and no acute distress Resp: Auscultation: clear to auscultation bilaterally Cardio: Rate: regular rate Rhythm: regular rhythm GI: Inspection: normal to inspection and distended GI Palp: No abdominal tenderness, Yes Soft to palpation and No Tenderness to palpation present (GI) Objective Data Vital Signs Vital Signs: Vital Signs - 24 hr 09/26/23 09:09 09/26/23 09:14 09/26/23 09:13 Temperature 36.3 C L 36.3 C L 36.3 C L Pulse Rate 87 87 87 Respiratory Rate 17 17 17 Blood Pressure 126/58 L 126/58 L 126/58 L Pulse Oximetry 99 99 99 Oxygen Delivery Fraction of Inspired Oxygen 09/26/23 09:29 09/26/23 10:29 09/26/23 11:29 Temperature 36.3 C L 36.7 C 37.0 C Pulse Rate 81 85 88 Respiratory Rate 18 17 17 Blood Pressure 133/63 126/56 L 126/67 Pulse Oximetry 99 100 100 Oxygen Delivery Fraction of Inspired Oxygen 09/26/23 12:00 09/26/23 12:20 09/26/23 14:00 Temperature 36.6 C 36.6 C Pulse Rate 94 86 97 Respiratory Rate 18 16 Blood Pressure 128/64 143/71 H Pulse Oximetry 99 100 Oxygen Delivery Fraction of Inspired Oxygen 09/26/23 16:00 09/26/23 20:38 09/26/23 20:00 Temperature 37.5 C Pulse Rate 92 89 86 Respiratory Rate 16 Blood Pressure 126/61 Pulse Oximetry 98 Oxygen Delivery Fraction of Inspired Oxygen 09/26/23 20:00 09/27/23 05:44 09/27/23 04:00 Temperature 37.2 C Pulse Rate 81 81 Respiratory Rate 16 Blood Pressure 150/72 H Pulse Oximetry 98 98 Oxygen Delivery Room Air Fraction of Inspired Oxygen 21 Intake/Output Intake/Output: Intake & Output 09/24/23 09/25/23 09/26/23 09/27/23 23:59 23:59 23:59 23:59 Intake Total 1050 2600 2290 250 Output Total 300 Balance 1050 2300 2290 250 Meds/Results Medications: Active Medications Generic Name Dose Route Start Last Admin Trade Name Freq PRN Reason Stop Dose Admin Cyanocobalamin 1,000 mcg 09/25/23 09:00 09/25/23 09:56 Cyanocobalamin Inj 1,000 Mcg/Ml Vial IM 1,000 mcg Th@0900 DARIN Administration Dronabinol 5 mg 09/27/23 09:00 Dronabinol (*Crx) 2.5 Mg Capsule PO BID DARIN Enoxaparin Sodium 40 mg 09/26/23 09:00 09/27/23 08:25 Enoxaparin 40 Mg/0.4 Ml Syringe SUB-Q 40 mg DAILY DARIN Administration Ferrous Sulfate 325 mg 09/26/23 09:00 09/27/23 08:24 Ferrous Sulfate [address] PO 325 mg DAILY DARIN Administration Sodium Chloride 1,000 mls @ 100 mls/hr 09/25/23 09:10 09/27/23 08:25 Normal Saline Iv IV CONT Not Given .Q10H DARIN Albumin Human 100 mls @ 60 mls/hr 09/26/23 12:00 09/27/23 05:32 Albutein IVPB 60 mls/hr Q6HR DARIN Administration Ceftriaxone Sodium 2 gm in 100 mls @ 200 mls/hr 09/26/23 14:00 09/27/23 08:24 Rocephin 2 Gm/Ns 100 Ml IVPB 200 mls/hr DAILY DARIN Administration Iron Sucrose 400 mg/ Iron 275 mls @ 78.571 mls/hr 09/27/23 08:00 09/27/23 08:23 Sucrose 100 mg/ Sodium IVPB 09/27/23 11:29 78.57 mls/hr Chloride ONCE ONE Administration Lidocaine/Diphenhydr/Alum/Mg/Simeth 5 ml 09/25/23 18:47 09/25/23 20:51 Magnes & Alum
[2023-09-27] MEDS: droNABinol (*CRX) 2.5 MG CAPSULE 5 MG PO ×2 (08:57→17:31)
--- NOTE | 2023-09-27 12:41 | PM.IMPN ---
Progress Note: A&P Assessment and Plan (1) Diverticulitis: Code(s): K57.92 - Diverticulitis of intestine, part unspecified, without perforation or abscess without bleeding Status: Acute Plan Colitis and diverticulitis with micro perforation ulcerative colitis Diarrhea resolved Continue Rocephin and flagyl , blood culture pending, C diff negative Continue IV fluid, advance diet as tolerated. Surgery consulted evaluation noted. UTi urine culture positive for ESBL day 2 on bactrim monitor Anemia, iron deficiency Hb 8.1 s/p 1 unit pRBC r/o GI bleed Isat 12, retic count and haptolgobin wnl 500/1000 IV iron tentative protonix, FOB positive GI following, endoscopy on Friday Hyponatremia On admission 127 today 135 monitor Generalized weakness Diarrhea, resolved Patient reported improved and today is likely level care. 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 Type 2 diabetes Continue sliding scale insulin with Accu-Cheks, diabetic diet. Failure to thrive/protein energy malnutrition poor appetite past couple months Started on dronabinol Monitor DVT prophylaxis hold Lovenox pending GI bleed r/o . Subjective Date/time seen: 09/27/23 12:41 Interval history: Patient noted no more diarrhea. However hb 8.1 this morning Isat 12, B12/Folate wnl, Rectic count and Haptoglobin wnl For EGD on Friday Review of Systems Review of Systems: 12 systems were reviewed with pertinent positives and negatives per HPI. Except as documented in the HPI, all other systems were reviewed and are negative. Exam Narrative: General: alert and comfortable Eyes: EOMI, PERRLA ENNT External ears normal, Neck is supple, no masses, Respiratory systems: Clear to auscultation Cardiovascular S1, S2, normal rhythm, no murmur, rub, or gallop; no thrill or palpable murmurs on palpation. Gastrointestinal: soft, non-tender, and non-distended abdomen with no masses; BS present Skin: no rash, lesions, ulcerations, subcutaneous nodules or induration Musculoskeletal: no abnormality and no tenderness, normal ROM Neurologic: Alert and oriented x3, non focal Mental Status Exam: normal affect Const: Other: Well-developed, well-nourished, no acute distress HENMT: Other: Mucous membranes are tacky, no oral pharyngeal erythema Eyes: Other: Mild conjunctival pallor, no scleral icterus, pupils are equal and reactive Neck: Other: No JVD, no lymphadenopathy, supple Resp: Other: Clear to auscultation bilaterally, no increased work of breathing Cardio: Other: Regular rate, regular rhythm, 2+ bilateral radial pedal pulses, murmur GI: Other: Soft, nontender, nondistended, positive bowel sounds Skin: Other: Generalized pallor, non jaundice Neuro: Other: Alert oriented, speech is clear, no facial asymmetry Extrem: Other: No clubbing, cyanosis or edema Psych: Other: Appropriate mood and affect, pleasant and cooperative, judgment and insight intact Objective Data Vital Signs Vital Signs: Vital Signs - 24 hr 09/26/23 14:00 09/26/23 16:00 09/26/23 20:38 Temperature 97.9 F 99.5 F Pulse Rate 97 92 89 Respiratory Rate 16 16 Blood Pressure 143/71 H 126/61 Pulse Oximetry 100 98 Oxygen Delivery Fraction of Inspired Oxygen 09/26/23 20:00 09/26/23 20:00 09/27/23 05:44 Temperature 98.9 F Pulse Rate 86 81 Respiratory Rate 16 Blood Pressure 150/72 H Pulse Oximetry 98 98 Oxygen Delivery Room Air Fraction of Inspired Oxygen 21 09/27/23 04:00 09/27/23 08:51 09/27/23 08:20 Temperature Pulse Rate 81 Respiratory Rate Blood Pressure Pulse Oximetry Oxygen Delivery Room Air Room Air Fraction of Inspired Oxygen Intake/Output Intake/Output: Intake & Output 09/24/23 09/25/23 09/26/23 09/27/23 23:59 23:59 23:59 23:59 Intake Total 1050 2600 22
--- NOTE | 2023-09-27 13:49 | WPDGIPROGNO ---
Progress Note: A&P Assessment and Plan (1) Diverticulitis of colon with perforation: Code(s): K57.20 - Diverticulitis of large intestine with perforation and abscess without bleeding Status: Acute Assessment and Plan: on abx clinically better (2) Acute on chronic anemia: Code(s): D64.9 - Anemia, unspecified Status: Acute Assessment and Plan: no overt gib egd plan this Friday (3) Ulcerative proctitis: Qualifiers: Digestive disease complication type: other complication Qualified Code(s): K51.218 - Ulcerative (chronic) proctitis with other complication Code(s): K51.20 - Ulcerative (chronic) proctitis without complications Status: Acute (4) Ovarian mass: Code(s): N83.8 - Other noninflammatory disorders of ovary, fallopian tube and broad ligament Status: Acute Assessment and Plan: follow-up with her site manager this coming Friday (5) History of laparoscopic cholecystectomy: Onset Date: 09/10/23 Code(s): Z90.49 - Acquired absence of other specified parts of digestive tract Status: Resolved Subjective Date/time seen: 09/27/23 13:49 Interval history: overall better, in better spirits stool has improved, denies gib Review of Systems Review of Systems: All systems reviewed & are unremarkable except as noted in HPI and below Exam Const: General: cooperative, comfortable and no acute distress HENMT: Face/Nose/Sinus: Normal nares present Eyes: Sclera: sclerae normal Neck: Neck: supple Resp: Auscultation: clear to auscultation bilaterally Cardio: Rate: regular rate Rhythm: regular rhythm GI: Inspection: normal to inspection and distended GI Palp: No abdominal tenderness, Yes Soft to palpation and No Tenderness to palpation present (GI) Skin: General skin exam: no rashes or lesions noted Neuro: Speech: normal speech Motor exam (neuro): 5/5 motor strength present throughout Extrem: General: normal to inspection Psych: Mental Status: mental status grossly normal Objective Data Vital Signs Vital Signs: Vital Signs - 24 hr 09/26/23 14:00 09/26/23 16:00 09/26/23 20:38 Temperature 97.9 F 99.5 F Pulse Rate 97 92 89 Respiratory Rate 16 16 Blood Pressure 143/71 H 126/61 Pulse Oximetry 100 98 Oxygen Delivery Fraction of Inspired Oxygen 09/26/23 20:00 09/26/23 20:00 09/27/23 05:44 Temperature 98.9 F Pulse Rate 86 81 Respiratory Rate 16 Blood Pressure 150/72 H Pulse Oximetry 98 98 Oxygen Delivery Room Air Fraction of Inspired Oxygen 21 09/27/23 04:00 09/27/23 08:51 09/27/23 08:20 Temperature Pulse Rate 81 Respiratory Rate Blood Pressure Pulse Oximetry Oxygen Delivery Room Air Room Air Fraction of Inspired Oxygen 09/27/23 08:00 09/27/23 12:00 Temperature Pulse Rate 97 99 Respiratory Rate Blood Pressure Pulse Oximetry Oxygen Delivery Fraction of Inspired Oxygen Intake/Output Intake/Output: Intake & Output 09/24/23 09/25/23 09/26/23 09/27/23 23:59 23:59 23:59 23:59 Intake Total 1050 2600 2290 350 Output Total 300 Balance 1050 2300 2290 350 Meds/Results Medications: Active Medications Generic Name Dose Route Start Last Admin Trade Name Freq PRN Reason Stop Dose Admin Cyanocobalamin 1,000 mcg 09/25/23 09:00 09/25/23 09:56 Cyanocobalamin Inj 1,000 Mcg/Ml Vial IM 1,000 mcg Th@0900 DARIN Administration Dronabinol 5 mg 09/27/23 09:00 09/27/23 08:57 Dronabinol (*Crx) 2.5 Mg Capsule PO 5 mg BID DARIN Administration Enoxaparin Sodium 40 mg 09/26/23 09:00 09/27/23 08:25 Enoxaparin 40 Mg/0.4 Ml Syringe SUB-Q 40 mg DAILY DARIN Administration Ferrous Sulfate 325 mg 09/26/23 09:00 09/27/23 08:24 Ferrous Sulfate [address] PO 325 mg DAILY DARIN Administration Sodium Chloride 1,000 mls @ 100 mls/hr 09/25/23 09:10 09/27/23 11:29 Normal Saline Iv IV CONT Not Given .Q10H S
[2023-09-27] MEDS: POTASSIUM CHLORIDE 20 MEQ ER TABLET 40 MEQ PO (20:20)
[2023-09-27] MEDS: POTASSIUM CHLORIDE INJ 40 MEQ in SODIUM CHLORIDE 0.9% IV 500 ML 130 MEQ IVPB (20:23)
[2023-09-27] MEDS: MESALAMINE 1,000 MG SUPP.RECT 1000 MG RECTAL (20:23)
[2023-09-28] VITALS (9 sets, daily range): BP systolic 140–143; BP diastolic 66–70; PULSE 78–109; RESP 16–20; TEMP 37.1–37.5; O2SAT 96–99
[2023-09-28] MEDS: ALBUMIN HUMAN 25% 25 GM/100 ML 100 ML IVPB ×5 (00:15→23:59)
[2023-09-28] MEDS: metroNIDAZOLE 500 MG TABLET PO ×3 (05:24→21:39)
[2023-09-28 06:11] LABS: Basophils Percent Auto 0.6 % (0.2-1.2); Eosinophils Absolute Auto 0.2 K/mm3 (0-0.3); Eosinophils Percent Auto 3.1 % (0-4.4); Hematocrit 24.9 % (37.0-47.0); Hemoglobin 7.8 g/dL (12.0-15.0); Immature Granulocyte Absolute 0.03 K/mm3 (0.00-0.031); Immature Granulocyte Percent A 0.6 % (0-0.5); Lymphocytes Absolute Auto 0.71 K/mm3 (0.9-3.2); Lymphocytes Percent Auto 13.9 % (18.3-44.2); Mean Corpuscular HGB Conc 31.3 g/dl (32-36); Mean Corpuscular Hemoglobin 25.1 pg (26-34); Mean Corpuscular Volume 80.1 fl (80-100); Mean Platelet Volume 8.5 fl (7.4-10.4); Monocytes Absolute Auto 0.5 K/mm3 (0.1-0.6); Monocytes Percent Auto 10.6 % (2.6-8.5); Neutrophils Absolute Auto 3.6 K/mm3 (1.3-6.7); Neutrophils Percent Auto 71.2 % (45.5-73.1); Platelet Count Result 272 k/mm3 (150-375); Red Blood Count 3.11 M/mm3 (4.2-5.4); Red Cell Distribution Width 16.5 % (11.5-14.5); White Blood Count 5.1 K/mm3 (4.5-10.0)
[2023-09-28 06:22] LABS: Alanine Aminotransferase 6 U/L (6-35); Albumin Level 2.8 g/dL (3.5-5.1); Alkaline Phosphatase 62 U/L (38-126); Anion Gap 11 mmol/L (4-12); Aspartate Amino Transferase 13 U/L (14-36); Bilirubin,Total 0.5 mg/dL (0.2-1.3); Blood Urea Nitrogen 4 mg/dL (7-17); Calcium 7.8 mg/dL (8.4-10.2); Carbon Dioxide 19 mmol/L (22-30); Chloride 103 mmol/L (98-107); Estimated CRCL calculation 48 ml/min; Estimated Glomerular Filt Rate > 60; Glucose 93 mg/dL (65-110); Magnesium 1.7 mg/dL (1.6-2.3); Potassium 3.5 mmol/L (3.4-5.0); Sodium 133 mmol/L (137-145)
--- NOTE | 2023-09-28 08:17 | PM.PNGS ---
Progress Note: A&P Assessment and Plan (1) Diverticulitis of colon with perforation: Code(s): K57.20 - Diverticulitis of large intestine with perforation and abscess without bleeding Status: Acute Assessment and Plan: doing well, cont low fiber diet and abx, exam benign (2) Acute on chronic anemia: Code(s): D64.9 - Anemia, unspecified Status: Acute Assessment and Plan: stable s/p 2 units PRBC, plan for EGD on Friday Subjective Subjective Date/Time Seen: 09/28/23 08:17 Interval history: no acute issues, feels pretty good, no abd pain, [place] low fiber diet Review of Systems Review of Systems: All systems reviewed & are unremarkable except as noted in HPI and below Exam Const: General: cooperative, comfortable and no acute distress Resp: Auscultation: clear to auscultation bilaterally Cardio: Rate: regular rate Rhythm: regular rhythm GI: Inspection: normal to inspection and non-distended GI Palp: No abdominal tenderness, Yes Soft to palpation, No Tenderness to palpation present (GI), No Guarding due to palpation present (GI) and No Rigid due to palpation Objective Data Vital Signs Vital Signs: Vital Signs - 24 hr 09/27/23 08:51 09/27/23 08:20 09/27/23 12:00 Temperature Pulse Rate 99 Respiratory Rate Blood Pressure Pulse Oximetry Oxygen Delivery Room Air Room Air 09/27/23 14:00 09/27/23 16:00 09/27/23 20:52 Temperature 37.4 C 37.6 C H Pulse Rate 90 87 93 Respiratory Rate 22 H 18 Blood Pressure 125/58 L 138/69 Pulse Oximetry 100 97 Oxygen Delivery 09/27/23 20:00 09/27/23 20:00 09/28/23 05:05 Temperature 37.1 C Pulse Rate 91 82 Respiratory Rate 16 Blood Pressure 140/70 Pulse Oximetry 97 97 Oxygen Delivery Room Air 09/28/23 00:00 09/28/23 04:00 Temperature Pulse Rate 83 91 Respiratory Rate Blood Pressure Pulse Oximetry Oxygen Delivery Intake/Output Intake/Output: Intake & Output 09/25/23 09/26/23 09/27/23 09/28/23 23:59 23:59 23:59 23:59 Intake Total 2600 2290 1165 870 Output Total 300 Balance 2300 2290 1165 870 Meds/Results Medications: Active Medications Generic Name Dose Route Start Last Admin Trade Name Freq PRN Reason Stop Dose Admin Cyanocobalamin 1,000 mcg 09/25/23 09:00 09/25/23 09:56 Cyanocobalamin Inj 1,000 Mcg/Ml Vial IM 1,000 mcg Th@0900 DARIN Administration Dronabinol 5 mg 09/27/23 09:00 09/27/23 17:31 Dronabinol (*Crx) 2.5 Mg Capsule PO 5 mg BID DARIN Administration Enoxaparin Sodium 40 mg 09/26/23 09:00 09/27/23 08:25 Enoxaparin 40 Mg/0.4 Ml Syringe SUB-Q 40 mg DAILY DARIN Administration Ferrous Sulfate 325 mg 09/26/23 09:00 09/27/23 08:24 Ferrous Sulfate [address] PO 325 mg DAILY DARIN Administration Sodium Chloride 1,000 mls @ 100 mls/hr 09/25/23 09:10 09/28/23 05:23 Normal Saline Iv IV CONT Not Given .Q10H DARIN Albumin Human 100 mls @ 60 mls/hr 09/26/23 12:00 09/28/23 05:22 Albutein IVPB 60 mls/hr Q6HR DARIN Administration Ceftriaxone Sodium 2 gm in 100 mls @ 200 mls/hr 09/26/23 14:00 09/27/23 08:54 Rocephin 2 Gm/Ns 100 Ml IVPB Infused DAILY DARIN Infusion Lidocaine/Diphenhydr/Alum/Mg/Simeth 5 ml 09/25/23 18:47 09/25/23 20:51 Magnes & Alum Hyd/Simeth/Diphenhyd/Lidocaine 119 Ml Mouthwash BY MOUTH 10/25/23 20:59 5 ml Q4HR PRN Administration mouth pain Losartan Potassium 25 mg 09/26/23 09:00 09/27/23 08:24 Losartan Potassium 25 Mg Tablet PO 25 mg DAILY DARIN Administration Mesalamine 1,000 mg 09/25/23 21:00 09/27/23 20:23 Mesalamine 1,000 Mg Supp.Rect RECTAL 1,000 mg HS DARIN Administration Metronidazole 500 mg 09/26/23 16:30 09/28/23 05:24 Metronidazole 500 Mg Tablet PO 500 mg Q8HR DARIN Administration Ondansetron HCl 4 mg 09/24/23 22:11 Ondansetron Inj 4 Mg/2 Ml Vial IV PUSH Q4H PRN Nausea Pantoprazole Sodium 40 mg 09/25
[2023-09-28] MEDS: droNABinol (*CRX) 2.5 MG CAPSULE 5 MG PO ×2 (08:34→17:14)
[2023-09-28] MEDS: SULFAMETHOXAZOLE/TRIMETHOPRIM 800/160 MG DS TABLET 1 TAB PO ×2 (08:34→17:14)
[2023-09-28] MEDS: cefTRIAXone 2 GM/NS 100 ML 2 GM/100 ML BAG IVPB (08:34)
[2023-09-28] MEDS: LOSARTAN POTASSIUM 25 MG TABLET PO (08:34)
[2023-09-28] MEDS: FERROUS SULFATE 325 MG TABLET DR PO (08:34)
[2023-09-28] MEDS: ENOXAPARIN 40 MG/0.4 ML SYRINGE SUB-Q (08:35)
[2023-09-28] MEDS: PANTOPRAZOLE SODIUM IV 40 MG VIAL IV PUSH ×2 (08:35→21:39)
--- NOTE | 2023-09-28 09:39 | WPDGIPROGNO ---
Progress Note: A&P Assessment and Plan (1) Diverticulitis of colon with perforation: Code(s): K57.20 - Diverticulitis of large intestine with perforation and abscess without bleeding Status: Acute Assessment and Plan: on abx clinically better (2) Acute on chronic anemia: Code(s): D64.9 - Anemia, unspecified Status: Acute Assessment and Plan: no overt gib egd tomorrow, npo after midnight (3) Ulcerative proctitis: Qualifiers: Digestive disease complication type: other complication Qualified Code(s): K51.218 - Ulcerative (chronic) proctitis with other complication Code(s): K51.20 - Ulcerative (chronic) proctitis without complications Status: Acute (4) Ovarian mass: Code(s): N83.8 - Other noninflammatory disorders of ovary, fallopian tube and broad ligament Status: Acute Assessment and Plan: 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 set 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 this 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 Friday (5) History of laparoscopic cholecystectomy: Onset Date: 09/10/23 Code(s): Z90.49 - Acquired absence of other specified parts of digestive tract Status: Resolved Subjective Date/time seen: 09/28/23 09:39 Interval history: no new issues, she is comfortable Review of Systems Review of Systems: All systems reviewed & are unremarkable except as noted in HPI and below Exam Const: General: cooperative, comfortable and no acute distress HENMT: Face/Nose/Sinus: Normal nares present Eyes: Sclera: sclerae normal Neck: Neck: supple Resp: Auscultation: clear to auscultation bilaterally Cardio: Rate: regular rate Rhythm: regular rhythm GI: Inspection: normal to inspection and distended GI Palp: No abdominal tenderness, Yes Soft to palpation and No Tenderness to palpation present (GI) Skin: General skin exam: no rashes or lesions noted Neuro: Speech: normal speech Motor exam (neuro): 5/5 motor strength present throughout Extrem: General: normal to inspection Psych: Mental Status: mental status grossly normal Objective Data Vital Signs Vital Signs: Vital Signs - 24 hr 09/27/23 12:00 09/27/23 14:00 09/27/23 16:00 Temperature 99.3 F Pulse Rate 99 90 87 Respiratory Rate 22 H Blood Pressure 125/58 L Pulse Oximetry 100 Oxygen Delivery 09/27/23 20:52 09/27/23 20:00 09/27/23 20:00 Temperature 99.7 F H Pulse Rate 93 91 Respiratory Rate 18 Blood Pressure 138/69 Pulse Oximetry 97 97 Oxygen Delivery Room Air 09/28/23 05:05 09/28/23 00:00 09/28/23 04:00 Temperature 98.7 F Pulse Rate 82 83 91 Respiratory Rate 16 Blood Pressure 140/70 Pulse Oximetry 97 Oxygen Delivery 09/28/23 08:30 Temperature Pulse Rate Respiratory Rate Blood Pressure Pulse Oximetry Oxygen Delivery Room Air Intake/Output Intake/Output: Intake & Output 09/25/23 09/26/23 09/27/23 09/28/23 23:59 23:59 23:59 23:59 Intake Total 2600 2290 1165 870 Output Total 300 Balance 2300 2290 1165 870 Meds/Results Medications: Active Medications Generic Name Dose Route Start Last Admin Trade Name Freq PRN Reason Stop Dose Admin Cyanocobalamin 1,000 mcg 09/25/23 09:00 09/25/23 09:56 Cyanocobalamin Inj 1,000 Mcg/Ml Vial IM 1,000 mcg Th@0900 DARIN Administration Dronabinol 5 mg 09/27/23 09:00 09/28/23 08:34 Dronabinol (*Crx) 2.5 Mg Capsule PO 5 mg BID DARIN Administration Enoxaparin Sodium 40 mg 09/26/23 09:00 09/28/23 08:35 Enoxaparin 40 Mg/0.4 Ml Syringe SUB-Q 40 mg DAILY DARIN Administration Ferrous Sulfate 325 mg 09/26/23 09:00 09/28/23 08:34 Ferrous Sulfate [address] PO 325 mg DAILY DARIN Administration Sodium Chloride 1,000 mls @ 100 mls/hr 09/25/23 09:10 09/28/23 08:35 Normal Saline Iv IV CONT Not Given .Q10H DARIN Albumin Human 100 mls @ 60 mls/hr 09/26/23 12:00 09/28/23 05:22 Albutein IVPB 60 mls/hr Q6HR DARIN Administration Ceftriaxone Sodium 2 gm in 100 mls @ 200 ml
[2023-09-28] MEDS: IRON SUCROSE COMPLEX 400 MG, IRON SUCROSE COMPLEX 100 MG in SODIUM CHLORIDE 0.9% IV 250 ML 78.57 MG IVPB (11:50)
--- NOTE | 2023-09-28 13:32 | PM.IMPN ---
Progress Note: A&P Assessment and Plan (1) Diverticulitis: Code(s): K57.92 - Diverticulitis of intestine, part unspecified, without perforation or abscess without bleeding Status: Acute Plan Colitis and diverticulitis with micro perforation ulcerative colitis Diarrhea resolved Continue Rocephin and flagyl, suppository Mesalamine , blood culture pending, C diff negative Continue IV fluid, advance diet as tolerated. Surgery consulted evaluation noted. UTi urine culture positive for ESBL day 3 on bactrim monitor Anemia, iron deficiency Hb 7.8 s/p 1 unit pRBC r/o GI bleed Isat 12, retic count and haptolgobin wnl 1000/1000 IV iron tentative protonix, FOB positive GI following, endoscopy tomorrow Hyponatremia On admission 127 today 133 monitor Generalized weakness Diarrhea, resolved Patient reported improved and today is likely level care. 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 Type 2 diabetes Continue sliding scale insulin with Accu-Cheks, diabetic diet. Failure to thrive/protein energy malnutrition poor appetite past couple months Started on dronabinol Monitor DVT prophylaxis hold Lovenox pending GI bleed r/o . Subjective Date/time seen: 09/28/23 13:32 Interval history: Comfortable a Review of Systems Review of Systems: 12 systems were reviewed with pertinent positives and negatives per HPI. Except as documented in the HPI, all other systems were reviewed and are negative. Exam Narrative: General: alert and comfortable Eyes: EOMI, PERRLA ENNT External ears normal, Neck is supple, no masses, Respiratory systems: Clear to auscultation Cardiovascular S1, S2, normal rhythm, no murmur, rub, or gallop; no thrill or palpable murmurs on palpation. Gastrointestinal: soft, non-tender, and non-distended abdomen with no masses; BS present Skin: no rash, lesions, ulcerations, subcutaneous nodules or induration Musculoskeletal: no abnormality and no tenderness, normal ROM Neurologic: Alert and oriented x3, non focal Mental Status Exam: normal affect Const: Other: Well-developed, well-nourished, no acute distress HENMT: Other: Mucous membranes are tacky, no oral pharyngeal erythema Eyes: Other: Mild conjunctival pallor, no scleral icterus, pupils are equal and reactive Neck: Other: No JVD, no lymphadenopathy, supple Resp: Other: Clear to auscultation bilaterally, no increased work of breathing Cardio: Other: Regular rate, regular rhythm, 2+ bilateral radial pedal pulses, murmur GI: Other: Soft, nontender, nondistended, positive bowel sounds Skin: Other: Generalized pallor, non jaundice Neuro: Other: Alert oriented, speech is clear, no facial asymmetry Extrem: Other: No clubbing, cyanosis or edema Psych: Other: Appropriate mood and affect, pleasant and cooperative, judgment and insight intact Objective Data Vital Signs Vital Signs: Vital Signs - 24 hr 09/27/23 14:00 09/27/23 16:00 09/27/23 20:52 Temperature 99.3 F 99.7 F H Pulse Rate 90 87 93 Respiratory Rate 22 H 18 Blood Pressure 125/58 L 138/69 Pulse Oximetry 100 97 Oxygen Delivery 09/27/23 20:00 09/27/23 20:00 09/28/23 05:05 Temperature 98.7 F Pulse Rate 91 82 Respiratory Rate 16 Blood Pressure 140/70 Pulse Oximetry 97 97 Oxygen Delivery Room Air 09/28/23 00:00 09/28/23 04:00 09/28/23 08:30 Temperature Pulse Rate 83 91 Respiratory Rate Blood Pressure Pulse Oximetry Oxygen Delivery Room Air Intake/Output Intake/Output: Intake & Output 09/25/23 09/26/23 09/27/23 09/28/23 23:59 23:59 23:59 23:59 Intake Total 2600 2290 1165 1330 Output Total 300 Balance 2300 2290 1165 1330 Meds/Results Medications: Active Medications Generic Name Dose Route Start Last Admin Trade Name Freq PRN Reason Stop Dose Admin Cyan
[2023-09-28] MEDS: SODIUM CHLORIDE 0.9% IV 1,000 ML 100 ML IV CONT (17:14)
[2023-09-28] MEDS: MESALAMINE 1,000 MG SUPP.RECT 1000 MG RECTAL (21:39)
[2023-09-29] VITALS (12 sets, daily range): BP systolic 124–167; BP diastolic 52–79; PULSE 80–100; RESP 18–20; TEMP 36.4–37; O2SAT 96–100
[2023-09-29] MEDS: SODIUM CHLORIDE 0.9% IV 1,000 ML 100 ML IV CONT ×2 (00:04→08:32)
[2023-09-29] MEDS: ALBUMIN HUMAN 25% 25 GM/100 ML 100 ML IVPB ×4 (05:04→23:48)
[2023-09-29] MEDS: metroNIDAZOLE 500 MG TABLET PO ×3 (05:07→21:50)
[2023-09-29 06:14] LABS: Basophils Percent Auto 0.5 % (0.2-1.2); Eosinophils Absolute Auto 0.1 K/mm3 (0-0.3); Eosinophils Percent Auto 1.6 % (0-4.4); Hematocrit 23.6 % (37.0-47.0); Hemoglobin 7.4 g/dL (12.0-15.0); Immature Granulocyte Absolute 0.07 K/mm3 (0.00-0.031); Immature Granulocyte Percent A 1.1 % (0-0.5); Lymphocytes Absolute Auto 0.85 K/mm3 (0.9-3.2); Lymphocytes Percent Auto 13.7 % (18.3-44.2); Mean Corpuscular HGB Conc 31.4 g/dl (32-36); Mean Corpuscular Volume 79.7 fl (80-100); Mean Platelet Volume 8.6 fl (7.4-10.4); Monocytes Absolute Auto 0.6 K/mm3 (0.1-0.6); Monocytes Percent Auto 9.4 % (2.6-8.5); Neutrophils Absolute Auto 4.6 K/mm3 (1.3-6.7); Neutrophils Percent Auto 73.7 % (45.5-73.1); Platelet Count Result 249 k/mm3 (150-375); Red Blood Count 2.96 M/mm3 (4.2-5.4); White Blood Count 6.2 K/mm3 (4.5-10.0)
[2023-09-29 06:31] LABS: Albumin Level 3.5 g/dL (3.5-5.1); Alkaline Phosphatase 51 U/L (38-126); Anion Gap 13 mmol/L (4-12); Aspartate Amino Transferase 12 U/L (14-36); Bilirubin,Total 0.6 mg/dL (0.2-1.3); Carbon Dioxide 20 mmol/L (22-30); Chloride 102 mmol/L (98-107); Estimated CRCL calculation 48 ml/min; Estimated Glomerular Filt Rate > 60; Glucose 83 mg/dL (65-110); Magnesium 1.6 mg/dL (1.6-2.3); Sodium 135 mmol/L (137-145)
[2023-09-29 06:45] LABS: Alanine Aminotransferase < 6 U/L (6-35); Blood Urea Nitrogen < 2 mg/dL (7-17)
[2023-09-29] MEDS: PANTOPRAZOLE SODIUM IV 40 MG VIAL IV PUSH (08:27)
[2023-09-29] MEDS: SULFAMETHOXAZOLE/TRIMETHOPRIM 800/160 MG DS TABLET 1 TAB PO ×2 (08:28→17:15)
[2023-09-29] MEDS: cefTRIAXone 2 GM/NS 100 ML 2 GM/100 ML BAG IVPB (08:29)
--- NOTE | 2023-09-29 10:03 | PM.IMPN ---
Progress Note: A&P Assessment and Plan (1) Diverticulitis: Code(s): K57.92 - Diverticulitis of intestine, part unspecified, without perforation or abscess without bleeding Status: Acute Plan Colitis and diverticulitis with micro perforation ulcerative colitis Diarrhea resolved Day 4 Rocephin and flagyl, continue suppository Mesalamine , blood culture pending, C diff negative Continue IV fluid, advance diet as tolerated. Gi and surgery following UTi urine culture positive for ESBL day 05/27 on bactrim monitor Anemia, iron deficiency Hb 7.4 s/p 1 unit pRBC r/o GI bleed Isat 12, retic count and haptolgobin wnl 1000/1000 IV iron tentative protonix, FOB positive GI following, endoscopy today Hyponatremia On admission 127 today 135 monitor Generalized weakness Diarrhea, resolved Patient reported improved and today is likely level care. 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 Type 2 diabetes Continue sliding scale insulin with Accu-Cheks, diabetic diet. Failure to thrive/protein energy malnutrition poor appetite past couple months on dronabinol appetite improved Monitor DVT prophylaxis hold Lovenox pending GI bleed r/o . Subjective Date/time seen: 09/29/23 10:03 Interval history: comfortable at bedside no overnight events awaiting EGD today Review of Systems Review of Systems: 12 systems were reviewed with pertinent positives and negatives per HPI. Except as documented in the HPI, all other systems were reviewed and are negative. Exam Narrative: General: alert and comfortable Eyes: EOMI, PERRLA ENNT External ears normal, Neck is supple, no masses, Respiratory systems: Clear to auscultation Cardiovascular S1, S2, normal rhythm, no murmur, rub, or gallop; no thrill or palpable murmurs on palpation. Gastrointestinal: soft, non-tender, and non-distended abdomen with no masses; BS present Skin: no rash, lesions, ulcerations, subcutaneous nodules or induration Musculoskeletal: no abnormality and no tenderness, normal ROM Neurologic: Alert and oriented x3, non focal Mental Status Exam: normal affect Const: Other: Well-developed, well-nourished, no acute distress HENMT: Other: Mucous membranes are tacky, no oral pharyngeal erythema Eyes: Other: Mild conjunctival pallor, no scleral icterus, pupils are equal and reactive Neck: Other: No JVD, no lymphadenopathy, supple Resp: Other: Clear to auscultation bilaterally, no increased work of breathing Cardio: Other: Regular rate, regular rhythm, 2+ bilateral radial pedal pulses, murmur GI: Other: Soft, nontender, nondistended, positive bowel sounds Skin: Other: Generalized pallor, non jaundice Neuro: Other: Alert oriented, speech is clear, no facial asymmetry Extrem: Other: No clubbing, cyanosis or edema Psych: Other: Appropriate mood and affect, pleasant and cooperative, judgment and insight intact Objective Data Vital Signs Vital Signs: Vital Signs - 24 hr 09/28/23 14:00 09/28/23 12:00 09/28/23 16:00 Temperature 99.5 F Pulse Rate 88 109 H 91 Respiratory Rate 20 Blood Pressure 143/67 H Pulse Oximetry 99 09/28/23 20:10 09/28/23 20:00 09/29/23 00:00 Temperature 99.5 F Pulse Rate 98 96 89 Respiratory Rate 18 Blood Pressure 143/66 H Pulse Oximetry 96 09/29/23 04:25 09/29/23 04:00 Temperature 97.6 F Pulse Rate 87 84 Respiratory Rate 20 Blood Pressure 153/73 H Pulse Oximetry 97 Intake/Output Intake/Output: Intake & Output 09/26/23 09/27/23 09/28/23 09/29/23 23:59 23:59 23:59 23:59 Intake Total 2290 2165 2145 1880.0 Balance 2290 2165 2145 1880.0 Meds/Results Medications: Active Medications Generic Name Dose Route Start Last Admin Trade Name Freq PRN Reason Stop Dose Admin Cyanocobalamin 1,000 mcg 09/25/23 09:00 09/25/23 09:56
[2023-09-29] MEDS: LACTATED RINGERS 1,000 ML 150 ML IV CONT (11:11)
--- NOTE | 2023-09-29 11:11 | PM.PNGS ---
Progress Note: A&P Assessment and Plan (1) Diverticulitis of colon with perforation: Code(s): K57.20 - Diverticulitis of large intestine with perforation and abscess without bleeding Status: Acute Assessment and Plan: exam benign, lincoln diet, having normal bowel fxn, no acute surgical issues (2) Acute on chronic anemia: Code(s): D64.9 - Anemia, unspecified Status: Acute Assessment and Plan: await EGD, slowly drifting down Subjective Subjective Date/Time Seen: 09/29/23 11:11 Interval history: feels ok, awaiting EGD today Review of Systems Review of Systems: All systems reviewed & are unremarkable except as noted in HPI and below Exam Const: General: cooperative, comfortable and no acute distress Resp: Auscultation: clear to auscultation bilaterally Cardio: Rate: regular rate Rhythm: regular rhythm GI: Inspection: normal to inspection and non-distended GI Palp: No abdominal tenderness and Yes Soft to palpation Objective Data Vital Signs Vital Signs: Vital Signs - 24 hr 09/28/23 14:00 09/28/23 12:00 09/28/23 16:00 Temperature 37.5 C Pulse Rate 88 109 H 91 Respiratory Rate 20 Blood Pressure 143/67 H Pulse Oximetry 99 Oxygen Delivery 09/28/23 20:10 09/28/23 20:00 09/29/23 00:00 Temperature 37.5 C Pulse Rate 98 96 89 Respiratory Rate 18 Blood Pressure 143/66 H Pulse Oximetry 96 Oxygen Delivery 09/29/23 04:25 09/29/23 04:00 09/29/23 08:30 Temperature 36.4 C Pulse Rate 87 84 Respiratory Rate 20 Blood Pressure 153/73 H Pulse Oximetry 97 Oxygen Delivery Room Air 09/29/23 11:10 Temperature 36.7 C Pulse Rate 94 Respiratory Rate 18 Blood Pressure 167/78 H Pulse Oximetry 99 Oxygen Delivery Room Air Intake/Output Intake/Output: Intake & Output 09/26/23 09/27/23 09/28/23 09/29/23 23:59 23:59 23:59 23:59 Intake Total 2290 2165 2145 0.0 Balance 2290 21640.0 Meds/Results Medications: Active Medications Generic Name Dose Route Start Last Admin Trade Name Freq PRN Reason Stop Dose Admin Cyanocobalamin 1,000 mcg 09/25/23 09:00 08/08/24 09:56 Cyanocobalamin Inj 1,000 Mcg/Ml Vial IM 1,000 mcg Th@0900 DARIN Administration Dronabinol 5 mg 09/27/23 09:00 09/28/23 17:14 Dronabinol (*Crx) 2.5 Mg Capsule PO 5 mg BID DARIN Administration Enoxaparin Sodium 40 mg 09/26/23 09:00 09/28/23 08:35 Enoxaparin 40 Mg/0.4 Ml Syringe SUB-Q 40 mg DAILY DARIN Administration Ferrous Sulfate 325 mg 09/26/23 09:00 09/28/23 08:34 Ferrous Sulfate [address] PO 325 mg DAILY DARIN Administration Sodium Chloride 1,000 mls @ 100 mls/hr 09/25/23 09:10 09/29/23 08:32 Normal Saline Iv IV CONT 100 mls/hr .Q10H DARIN Administration Albumin Human 100 mls @ 60 mls/hr 09/26/23 12:00 09/29/23 07:00 Albutein IVPB Infused Q6HR DARIN Infusion Ceftriaxone Sodium 2 gm in 100 mls @ 200 mls/hr 09/26/23 14:00 09/29/23 09:00 Rocephin 2 Gm/Ns 100 Ml IVPB Infused DAILY DARIN Infusion Lactated Ringer's 1,000 mls @ 150 mls/hr 09/29/23 11:10 Lr - Lactated Ringers Iv IV CONT .Q6H40M DARIN Lidocaine/Diphenhydr/Alum/Mg/Simeth 5 ml 09/25/23 18:47 09/25/23 20:51 Magnes & Alum Hyd/Simeth/Diphenhyd/Lidocaine 119 Ml Mouthwash BY MOUTH 10/25/23 20:59 5 ml Q4HR PRN Administration mouth pain Losartan Potassium 25 mg 09/26/23 09:00 09/28/23 08:34 Losartan Potassium 25 Mg Tablet PO 25 mg DAILY DARIN Administration Mesalamine 1,000 mg 09/25/23 21:00 09/28/23 21:39 Mesalamine 1,000 Mg Supp.Rect RECTAL 1,000 mg HS DARIN Administration Metronidazole 500 mg 09/26/23 16:30 09/29/23 05:07 Metronidazole 500 Mg Tablet PO 500 mg Q8HR DARIN Administration Ondansetron HCl 4 mg 09/24/23 22:11 Ondansetron Inj 4 Mg/2 Ml Vial IV PUSH Q4H PRN Nausea Pantoprazole Sodium 40 mg 09/26/23 21:00 09/29/23 08:27 Pantoprazole Sodiu
--- NOTE | 2023-09-29 11:29 | WPDANESEPPF ---
Anes - Initial Pre Proc Eval Procedure: Operation Date: 09/29/23 16:00 Proposed Procedures p Esophagogastroduodenoscopy - Jefe Alcocer MD Date/Time: 09/29/23 11:29 Surgeon: Wilma Ferro DO Pre Op Diagnosis: Diverticulitis Patient Data Age: 63 Gender: F Height: 1.57 m Weight: 63.9 kg Last Vital Signs Temp 98.0 F 09/29/23 11:10 Pulse 94 09/29/23 11:10 Resp 18 09/29/23 11:10 BP 167/78 H 09/29/23 11:10 Pulse Ox 99 09/29/23 11:10 O2 Del Method Room Air 09/29/23 11:10 FiO2 21 09/26/23 20:00 Allergies Allergy/AdvReac Type Severity Reaction Status Date / Time azithromycin AdvReac Intermediate Rash Verified 09/25/23 00:40 Home Medications Medication Instructions Recorded Confirmed Type metformin 500 mg tablet 1,000 mg PO BID 12/03/20 09/25/23 History losartan 25 mg tablet 25 mg PO DAILY 05/01/22 09/25/23 History mesalamine 1,000 mg rectal See Rx Instructions .Route 09/05/23 09/25/23 Rx suppository .COMPLEX #30 ea Laboratory Tests 09/29/23 05:53 WBC 6.2 K/mm3 (4.5-10.0) RBC 2.96 L M/mm3 (4.2-5.4) Hgb 7.4 L g/dL (12.0-15.0) Hct 23.6 L % (37.0-47.0) MCV 79.7 L fl (80-100) MCH 25.0 L pg (26-34) MCHC 31.4 L g/dl (32-36) RDW 17.0 H % (11.5-14.5) Plt Count 249 k/mm3 (150-375) MPV 8.6 fl (7.4-10.4) Immature Gran % (Auto) 1.1 H % (0-0.5) Neut % (Auto) 73.7 H % (45.5-73.1) Lymph % (Auto) 13.7 L % (18.3-44.2) [place] % (Auto) 9.4 H % (2.6-8.5) Eos % (Auto) 1.6 % (0-4.4) Baso % (Auto) 0.5 % (0.2-1.2) Lymph # (Auto) 0.85 L K/mm3 (0.9-3.2) [place] # (Auto) 0.6 K/mm3 (0.1-0.6) Eos # (Auto) 0.1 K/mm3 (0-0.3) Baso # (Auto) 0.0 K/mm3 (0.0-0.1) Abs Immat Gran (auto) 0.07 H K/mm3 (0.00-0.031) Absolute Neuts (auto) 4.6 K/mm3 (1.3-6.7) Absolute Nucleated RBC 0.000 K/mm3 (0.0-0.012) Nucleated RBC % 0.0 % (0.0-0.2) Sodium 135 L mmol/L (137-145) Potassium 3.0 L mmol/L (3.4-5.0) Chloride 102 mmol/L (98-107) Carbon Dioxide 20 L mmol/L (22-30) Anion Gap 13 H mmol/L (4-12) BUN < 2 L mg/dL (7-17) Creatinine 0.80 mg/dL (0.7-1.0) Estim Creat Clear Calc 48 ml/min Estimated GFR > 60 (59 - ) Glucose 83 mg/dL (65-110) Calcium 8.0 L mg/dL (8.4-10.2) Magnesium 1.6 mg/dL (1.6-2.3) Total Bilirubin 0.6 mg/dL (0.2-1.3) AST 12 L U/L (14-36) ALT < 6 L U/L (6-35) Alkaline Phosphatase 51 U/L (38-126) Total Protein 6.0 L g/dL (6.3-8.2) Albumin 3.5 g/dL (3.5-5.1) Patient hx anesthesia problems: none Family hx anesthesia problems: none Results Review: All pre-operative results and documents have been reviewed as part of the pre-operative evaluation. [facility] Past Medical History Medical History (Updated 09/27/23 @ 13:50 by Jefe Alcocer MD) Acute on chronic anemia Chronic anemia Chronic kidney disease Essential hypertension Inflammatory bowel disease (ulcerative colitis) Type 2 diabetes mellitus Surgical History Surgical History (Updated 09/25/23 @ 11:44 by DONATO Lozano) Anal fistula Anal fistulotomy on 02/12/22 History of ear surgery History of laparoscopic cholecystectomy (09/10/23) Dr. Bowling Hx of hemorrhoidectomy 05/08/22 Hx of tubal ligation Family History Family History Other Diabetes mellitus Social History Social History Social History: Patient lives with her of 42 years. They had a set of fraternal twins. Their son is healthy. The daughter as congenital heart disease with large ASD that was not identified until she was in her 20s. 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 She is a lifelong nonsmoker and does not drink alcohol or use illicit substances.
--- NOTE | 2023-09-29 11:48 | PCNFU ---
Nutrition Follow-Up Complete: Moderate protein calorie malnutrition related to inadequate energy intake due to GI issues as evidenced by pt report, a noted -19% wt loss x 5 months, and NFPE findings for moderate subcutaneous fat loss (cheeks) and moderage muscle wasting (temples). Goal:Diet advancement and tolerance pt was meeting goal, NPO today for EGD Pt current nutrition is NPO. Nutrition recommendation: resume diet and supplements post EGD Last recorded weight is 63.9 kg. Bowel Motility: +BM 09/27 Labs Reviewed: Hgb:7.7, HCT:25.6, Na:132 Meds Noted: zofran Skin: no skin issues Additional Notes: Pt was on a low fiber diet over the weekend with good po intake at 50-75%, NPO today for EGD. Recommend to resume diet order and supplements of Ensure compact BID when diet is resumed. Monitor diet orders, intake, wt, labs. Follow up in 3 days.
[2023-09-29] MEDS: POTASSIUM CHLORIDE 20 MEQ PACKET (FOR LIQUID) 40 MEQ PO (12:40)
[2023-09-29] MEDS: ENOXAPARIN 40 MG/0.4 ML SYRINGE SUB-Q (12:40)
[2023-09-29] MEDS: droNABinol (*CRX) 2.5 MG CAPSULE 5 MG PO ×2 (12:40→17:15)
[2023-09-29] MEDS: FERROUS SULFATE 325 MG TABLET DR PO (12:40)
[2023-09-29] MEDS: LOSARTAN POTASSIUM 25 MG TABLET PO (12:40)
[2023-09-29 15:27] LABS: Haptoglobin 342 mg/dL (43-212)
[2023-09-29] MEDS: PANTOPRAZOLE 40 MG TABLET PO (21:50)
[2023-09-29] MEDS: MESALAMINE 1,000 MG SUPP.RECT 1000 MG RECTAL (21:50)
[2023-09-30] VITALS: PULSE 103
[2023-09-30] MEDS: SODIUM CHLORIDE 0.9% IV 1,000 ML 100 ML IV CONT (02:44)
[2023-09-30 04:00] VITALS: PULSE 82
[2023-09-30 04:50] VITALS: BP 165/84; PULSE 95; RESP 20; TEMP 35.7; O2SAT 99
[2023-09-30] MEDS: metroNIDAZOLE 500 MG TABLET PO ×2 (06:30→13:39)
[2023-09-30] MEDS: ALBUMIN HUMAN 25% 25 GM/100 ML 100 ML IVPB (06:30)
[2023-09-30 07:10] LABS: Basophils Percent Auto 0.4 % (0.2-1.2); Eosinophils Absolute Auto 0.2 K/mm3 (0-0.3); Eosinophils Percent Auto 2.9 % (0-4.4); Hematocrit 24.9 % (37.0-47.0); Hemoglobin 7.6 g/dL (12.0-15.0); Immature Granulocyte Absolute 0.09 K/mm3 (0.00-0.031); Immature Granulocyte Percent A 1.7 % (0-0.5); Lymphocytes Absolute Auto 0.74 K/mm3 (0.9-3.2); Lymphocytes Percent Auto 14.3 % (18.3-44.2); Mean Corpuscular HGB Conc 30.5 g/dl (32-36); Mean Corpuscular Hemoglobin 24.4 pg (26-34); Mean Corpuscular Volume 80.1 fl (80-100); Mean Platelet Volume 8.3 fl (7.4-10.4); Monocytes Absolute Auto 0.5 K/mm3 (0.1-0.6); Monocytes Percent Auto 10.3 % (2.6-8.5); Neutrophils Absolute Auto 3.6 K/mm3 (1.3-6.7); Neutrophils Percent Auto 70.4 % (45.5-73.1); Platelet Count Result 241 k/mm3 (150-375); Red Blood Count 3.11 M/mm3 (4.2-5.4); Red Cell Distribution Width 17.2 % (11.5-14.5); White Blood Count 5.2 K/mm3 (4.5-10.0)
[2023-09-30 07:19] LABS: Albumin Level 3.8 g/dL (3.5-5.1); Alkaline Phosphatase 56 U/L (38-126); Anion Gap 12 mmol/L (4-12); Aspartate Amino Transferase 13 U/L (14-36); Bilirubin,Total 0.5 mg/dL (0.2-1.3); Calcium 8.5 mg/dL (8.4-10.2); Carbon Dioxide 23 mmol/L (22-30); Chloride 100 mmol/L (98-107); Estimated CRCL calculation 48 ml/min; Estimated Glomerular Filt Rate > 60; Glucose 99 mg/dL (65-110); Magnesium 1.6 mg/dL (1.6-2.3); Potassium 3.2 mmol/L (3.4-5.0); Sodium 135 mmol/L (137-145)
[2023-09-30 07:24] LABS: Lactic Acid Reflex 0.6 mmol/L (0.7-2.0)
[2023-09-30 08:00] VITALS: PULSE 90
[2023-09-30 08:00] LABS: Alanine Aminotransferase < 6 U/L (6-35); Blood Urea Nitrogen < 2 mg/dL (7-17)
[2023-09-30] MEDS: LOSARTAN POTASSIUM 25 MG TABLET PO (08:18)
[2023-09-30] MEDS: SULFAMETHOXAZOLE/TRIMETHOPRIM 800/160 MG DS TABLET 1 TAB PO (08:18)
[2023-09-30] MEDS: droNABinol (*CRX) 2.5 MG CAPSULE 5 MG PO (08:18)
[2023-09-30] MEDS: FERROUS SULFATE 325 MG TABLET DR PO (08:18)
[2023-09-30] MEDS: cefTRIAXone 2 GM/NS 100 ML 2 GM/100 ML BAG IVPB (08:18)
[2023-09-30] MEDS: ENOXAPARIN 40 MG/0.4 ML SYRINGE SUB-Q (08:19)
[2023-09-30] MEDS: PANTOPRAZOLE 40 MG TABLET PO (08:19)
[2023-09-30 12:00] VITALS: PULSE 117
--- NOTE | 2023-09-30 13:03 | PM.PNGS ---
Progress Note: A&P Assessment and Plan (1) Diverticulitis of colon with perforation: Code(s): K57.20 - Diverticulitis of large intestine with perforation and abscess without bleeding Status: Acute Assessment and Plan: exam cont to be benign, lincoln low fiber diet, cont abx, ok to dc home from surgical standpoint c po abx and low fiber diet, f/u in 2 wks (2) Acute on chronic anemia: Code(s): D64.9 - Anemia, unspecified Status: Acute Assessment and Plan: ? etiology, stable H/H over last few days, ? 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 Subjective Subjective Date/Time Seen: 09/30/23 13:03 Interval history: feels good, lincoln low fiber diet, normal bowel fxn Review of Systems Review of Systems: All systems reviewed & are unremarkable except as noted in HPI and below Exam Const: General: cooperative, comfortable and no acute distress Resp: Auscultation: clear to auscultation bilaterally Cardio: Rate: regular rate Rhythm: regular rhythm GI: Inspection: normal to inspection and distended GI Palp: No abdominal tenderness, Yes Soft to palpation, No Tenderness to palpation present (GI), No Guarding due to palpation present (GI) and No Rigid due to palpation Objective Data Vital Signs Vital Signs: Vital Signs - 24 hr 09/29/23 14:00 09/29/23 16:00 09/29/23 20:00 Temperature 37.0 C Pulse Rate 96 100 94 Respiratory Rate 18 Blood Pressure 133/55 L Pulse Oximetry 100 Oxygen Delivery 09/29/23 20:00 09/29/23 20:50 09/30/23 00:00 Temperature 36.4 C L Pulse Rate 100 103 H Respiratory Rate 20 Blood Pressure 150/79 H Pulse Oximetry 100 Oxygen Delivery Room Air 09/30/23 04:50 09/30/23 04:00 09/30/23 08:00 Temperature 35.7 C L Pulse Rate 95 82 Respiratory Rate 20 Blood Pressure 165/84 H Pulse Oximetry 99 Oxygen Delivery Room Air 09/30/23 08:00 Temperature Pulse Rate 90 Respiratory Rate Blood Pressure Pulse Oximetry Oxygen Delivery Intake/Output Intake/Output: Intake & Output 09/27/23 09/28/23 09/29/23 09/30/23 23:59 23:59 23:59 23:59 Intake Total 6071 9857 7350.0 756 Balance 2165 2145 3560.0 756 Meds/Results Medications: Active Medications Generic Name Dose Route Start Last Admin Trade Name Cam PRN Reason Stop Dose Admin Cyanocobalamin 1,000 mcg 09/25/23 09:00 09/25/23 09:56 Cyanocobalamin Inj 1,000 Mcg/Ml Vial IM 1,000 mcg Th@0900 DARIN Administration Dronabinol 5 mg 09/27/23 09:00 09/30/23 08:18 Dronabinol (*Crx) 2.5 Mg Capsule PO 5 mg BID DARIN Administration Enoxaparin Sodium 40 mg 09/26/23 09:00 09/30/23 08:19 Enoxaparin 40 Mg/0.4 Ml Syringe SUB-Q 40 mg DAILY DARIN Administration Ferrous Sulfate 325 mg 09/26/23 09:00 09/30/23 08:18 Ferrous Sulfate [address] PO 325 mg DAILY DARIN Administration Sodium Chloride 1,000 mls @ 100 mls/hr 09/25/23 09:10 09/30/23 02:44 Normal Saline Iv IV CONT 100 mls/hr .Q10H DARIN Administration Albumin Human 100 mls @ 60 mls/hr 09/26/23 12:00 09/30/23 12:32 Albutein IVPB Not Given Q6HR DARIN Ceftriaxone Sodium 2 gm in 100 mls @ 200 mls/hr 09/26/23 14:00 09/30/23 08:18 Rocephin 2 Gm/Ns 100 Ml IVPB 10/01/23 23:59 200 mls/hr DAILY DARIN Administration Lidocaine/Diphenhydr/Alum/Mg/Simeth 5 ml 09/25/23 18:47 09/25/23 20:51 Magnes & Alum Hyd/Simeth/Diphenhyd/Lidocaine 119 Ml Mouthwash BY MOUTH 10/25/23 20:59 5 ml Q4HR PRN Administration mouth pain Losartan Potassium 25 mg 09/26/23 09:00 09/30/23 08:18 Losartan Potassium 25 Mg Tablet PO 25 mg DAILY DARIN Administration Mesalamine 1,000 mg 09/25/23 21:00 09/29/23 21:50 Mesalamine 1,000 Mg Supp.Rect RECTAL 1,000 mg HS DARIN Administration Metronidazole 500 mg 09/26/23 16:30 08/13/24 06:30 Metronidazole 500 Mg Tablet PO 10/01/23 23:59 500 mg Q8HR DARIN Administration Ondansetron HCl 4 mg 09/24/23 22:11
[2023-09-30 13:54] VITALS: BP 150/72; PULSE 86; RESP 19; TEMP 36.6; O2SAT 99
--- NOTE | 2023-09-30 14:43 | PM.DS ---
DS: Admitting Diagnosis Discharge Date 09/30/2023 Admitting Diagnosis Hyponatremia, Diverticulitis, Abnormal urinalysis, Generalized weakness, Hypokalemia DS: Discharge Diagnosis Discharge Diagnosis (1) Diverticulitis: Code(s): K57.92 - Diverticulitis of intestine, part unspecified, without perforation or abscess without bleeding Status: Acute Plan #Colitis and diverticulitis with micro perforation #Ulcerative colitis Anemia, iron deficiency Hb 7.6 s/p endoscopy Isat 12, retic count and haptolgobin wnl 1000/1000 IV iron Cont pantoprazole FOB positive Cont Ferrous sulphate F/U with PCP and perform H/H in a week F/U with Dr.Rodriguez DOMINGUEZ in a week. #UTI Urine culture positive for ESBL Cont bactrim Complete the course at home #Hyponatremia Resolved On admission 127 today 135 #Generalized weakness Diarrhea, resolved #Pelvic mass Ovarian cyst -Right? 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 #Failure to thrive/protein energy malnutrition Poor appetite past couple months Started on dronabinol but d/c due to rist Thrombo embolism appetite improved Monitor DS: Summary Hospital Course Hospital Course: #Colitis and diverticulitis with micro perforation #Ulcerative colitis Anemia, iron deficiency Hb 7.6 s/p endoscopy Isat 12, retic count and haptolgobin wnl 1000/1000 IV iron FOB positive Cont Ferrous sulphate Cont Pantoprazole F/U with PCP and perform H/H in a week F/U with Dr.Rodriguez DOMINGUEZ in a week. #UTI Urine culture positive for ESBL Cont bactrim Complete the course at home #Hyponatremia Resolved On admission 127 today 135 #Generalized weakness Diarrhea, resolved #Pelvic mass Ovarian cyst -Right? 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 #Failure to thrive/protein energy malnutrition Poor appetite past couple months Started on dronabinol but d/c due to rist Thrombo embolism appetite improved Monitor Status at Discharge Cognitive/behavioral status at discharge: Stable Time Spent with Patient Time attestation: Total time spent providing and/or coordinating discharge services:45mins Exam Narrative: General: alert and comfortable Eyes: EOMI, PERRLA ENNT External ears normal, Neck is supple, no masses, Respiratory systems: Clear to auscultation Cardiovascular S1, S2, normal rhythm, no murmur, rub, or gallop; no thrill or palpable murmurs on palpation. Gastrointestinal: soft, non-tender, and non-distended abdomen with no masses; BS present Skin: no rash, lesions, ulcerations, subcutaneous nodules or induration Musculoskeletal: no abnormality and no tenderness, normal ROM Neurologic: Alert and oriented x3, non focal Mental Status Exam: normal affect Const: Other: Well-developed, well-nourished, no acute distress HENMT: Other: Mucous membranes are tacky, no oral pharyngeal erythema Eyes: Other: Mild conjunctival pallor, no scleral icterus, pupils are equal and reactive Neck: Other: No JVD, no lymphadenopathy, supple Resp: Other: Clear to auscultation bilaterally, no increased work of breathing Cardio: Other: Regular rate, regular rhythm, 2+ bilateral radial pedal pulses, murmur GI: Other: Soft, nontender, nondistended, positive bowel sounds Skin: Other: Generalized pallor, non jaundice Neuro: Other: Alert oriented, speech is clear, no facial asymmetry Extrem: Other: No clubbing, cyanosis or edema Psych: Other: Appropriate mood and affect, pleasant and cooperative, judgment and insight intact DS: Data Data Completed and Pending Pending studies at discharge: Pending at discharge 09/29/23 11:40 Surgical [PTH] Routine Labs on day of discharge: Labs from last 24 hours 09/30/23 09/26/23 06:48 14:41 WBC 5.2 RBC 3.11 L Hgb 7.6 L Hct 24.9 L MCV 80.1 MCH 24.4 L MCHC 30.5 L RDW 17.2
--- NOTE | 2023-09-30 15:49 | WPDGIPROGNO ---
Progress Note: A&P Assessment and Plan (1) Diverticulitis of colon with perforation: Code(s): K57.20 - Diverticulitis of large intestine with perforation and abscess without bleeding Status: Acute Assessment and Plan: on abx clinically better she is going home, complete oral treatment and follow-up with surgery in 2-3 weeks (2) Acute on chronic anemia: Code(s): D64.9 - Anemia, unspecified Status: Acute Assessment and Plan: no overt gib egd no major changes (3) Ulcerative proctitis: Qualifiers: Digestive disease complication type: other complication Qualified Code(s): K51.218 - Ulcerative (chronic) proctitis with other complication Code(s): K51.20 - Ulcerative (chronic) proctitis without complications Status: Acute (4) Ovarian mass: Code(s): N83.8 - Other noninflammatory disorders of ovary, fallopian tube and broad ligament Status: Acute Assessment and Plan: follow-up with 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 machine operator this week (5) History of laparoscopic cholecystectomy: Onset Date: 09/10/23 Code(s): Z90.49 - Acquired absence of other specified parts of digestive tract Status: Resolved Subjective Date/time seen: 09/30/23 13:49 Interval history: no changes, egd yesterday no major changes she is going home and will follow-up with production machine operator Review of Systems Review of Systems: All systems reviewed & are unremarkable except as noted in HPI and below Exam Const: General: cooperative, comfortable and no acute distress HENMT: Face/Nose/Sinus: Normal nares present Eyes: Sclera: sclerae normal Neck: Neck: supple Resp: Auscultation: clear to auscultation bilaterally Cardio: Rate: regular rate Rhythm: regular rhythm GI: Inspection: normal to inspection and distended GI Palp: No abdominal tenderness, Yes Soft to palpation and No Tenderness to palpation present (GI) Skin: General skin exam: no rashes or lesions noted Neuro: Speech: normal speech Motor exam (neuro): 5/5 motor strength present throughout Extrem: General: normal to inspection Psych: Mental Status: mental status grossly normal Objective Data Vital Signs Vital Signs: Vital Signs - 24 hr 09/29/23 16:00 09/29/23 20:00 09/29/23 20:00 Temperature Pulse Rate 100 94 Respiratory Rate Blood Pressure Pulse Oximetry Oxygen Delivery Room Air 09/29/23 20:50 09/30/23 00:00 09/30/23 04:50 Temperature 97.5 F L 96.2 F L Pulse Rate 100 103 H 95 Respiratory Rate 20 20 Blood Pressure 150/79 H 165/84 H Pulse Oximetry 100 99 Oxygen Delivery 09/30/23 04:00 09/30/23 08:00 09/30/23 08:00 Temperature Pulse Rate 82 90 Respiratory Rate Blood Pressure Pulse Oximetry Oxygen Delivery Room Air 09/30/23 13:54 09/30/23 12:00 Temperature 97.9 F Pulse Rate 86 117 H Respiratory Rate 19 Blood Pressure 150/72 H Pulse Oximetry 99 Oxygen Delivery Intake/Output Intake/Output: Intake & Output 09/27/23 09/28/23 09/29/23 09/30/23 23:59 23:59 23:59 23:59 Intake Total 2165 2145 3560.0 756 Balance 2165 2145 3560.0 756 Meds/Results Radiology Results: ITS Impressions Head CT 09/24/23 20:26 IMPRESSION: No acute intracranial findings. Chest X-Ray 09/24/23 20:35 IMPRESSION: No acute cardiopulmonary pathology. Abdomen/Pelvis CT 09/24/23 20:56 IMPRESSION: 1. Thickened wall of the sigmoid colon suggestive of colitis. Diverticulitis at the junction of the descending and sigmoid colon is seen with a small pocket of air suggestive of perforation. No free air in the abdomen seen. No fluid in this area is noted. 2. Large cystic mass in the right side of the pelvis most likely cystadenoma unchanged. 3. Liver Subcapsular collection near to the area of the gallbladder. 4. Hepatic cyst. 5. Constipation Labs Labs: Laboratory Results - last 24 hr 09/30/23 06:48 WBC 5.2 RBC 3.11 L Hgb 7
== END 2023-09-30 15:10 | disposition home or self-care (01) | DRG 392 ==
LOC: ANHED 22:10 → ANH3MEDSUR 23:33
PROVIDERS: Internal Medicine; Internal Medicine Gastroenterology; Admitting Provider Internal Medicine; Emergency Provider Physician Assistant; PCP Internal Medicine; Visit Provider General Practice
PROC: 0DJ08ZZ Inspection of Upper Intestinal Tract, Via Natural or Artificial Opening Endoscopic (ICD-10-PCS; CPT 43235; principal; 2023-09-29 16:00)
DX: K57.20 Diverticulitis of large intestine with perforation and abscess without bleeding (principal); E87.1 Hypo-osmolality and hyponatremia; E46 Unspecified protein-calorie malnutrition; K51.90 Ulcerative colitis, unspecified, without complications; N39.0 Urinary tract infection, site not specified; K29.70 Gastritis, unspecified, without bleeding; I12.9 Hypertensive chronic kidney disease with stage 1 through stage 4 chronic kidney disease, or unspecified chronic kidney disease; E11.22 Type 2 diabetes mellitus with diabetic chronic kidney disease; N18.9 Chronic kidney disease, unspecified; E87.6 Hypokalemia; N83.8 Other noninflammatory disorders of ovary, fallopian tube and broad ligament; E53.8 Deficiency of other specified B group vitamins; D50.9 Iron deficiency anemia, unspecified; K21.9 Gastro-esophageal reflux disease without esophagitis; D63.8 Anemia in other chronic diseases classified elsewhere; R19.7 Diarrhea, unspecified; Z90.49 Acquired absence of other specified parts of digestive tract; Z68.25 Body mass index [BMI] 25.0-25.9, adult; Z20.822 Contact with and (suspected) exposure to COVID-19; R62.7 Adult failure to thrive
CPT/HCPCS: 36415; 36430; 70450; 71046; 74177; 80048; 80053; 81001; 82274; 82607; 82746; 83010; 83540; 83550; 83605; 83615; 83690; 83735; 84443; 84484; 85014; 85018; 85025; 85027; 85046; 85610; 85730; 86850; 86900; 86901; 86923; 87040; 87077; 87086; 87088; 87186; 87493; 87637; 88305; 93005; 93306; 96361; 96365; 96366; 96372; 97165; 99285; A9270; G0378; J0696; J1650; J1756; J2470; J2543; J2704; J3420; J3480; J7030; J7040; J7050; J7120; P9016; P9047; Q9967

== ENCOUNTER 2023-10-30 16:19 | Outpatient (RCR) | payer OTHER, MEDICARE, SELFPAY ==
[2023-10-30 17:42] LABS: Iron 11 ug/dL (50-170)
[2023-10-30 17:43] LABS: Ferritin > 1000 ng/mL (8-252)
[2023-10-31 07:31] LABS: Hemoglobin 7.5 g/dL (11.7-13.8)
[2023-11-01] MEDS: SODIUM CHLORIDE 0.9% IV 250 ML 100 ML IV CONT (09:10)
[2023-11-01 09:17] VITALS: BP 112/56; PULSE 106; RESP 18; TEMP 36.1; O2SAT 97
[2023-11-01 09:35] VITALS: BP 120/72; PULSE 102; RESP 18; TEMP 36.1; O2SAT 96
[2023-11-01 10:00] VITALS: BMI 26.1
--- NOTE | 2023-11-01 10:27 | PC.NURSE ---
0920 blood starts @ 100ml/hr. tolerating well. rests with eyes closed. 0945 tolerating blood. increase blood to 125ml/hr. rests in recliner with feet up. 1000 c/o arm kemp. site looks good. 1015 blood stopped iv site infiltrated. cool compress applied. attempt new site. immed return of blood and then blows when flushed. 1025 new iv in r upper arm and blood resumed at 100ml/hr.
[2023-11-01 10:35] VITALS: BP 124/68; PULSE 98; RESP 18; TEMP 36.6; O2SAT 96
--- NOTE | 2023-11-01 11:20 | PC.NURSE ---
1120 ryan laird. blood cont @ 150ml/hr
[2023-11-01 11:35] VITALS: BP 120/74; PULSE 94; RESP 18; TEMP 35.8; O2SAT 99
[2023-11-01 13:06] LABS: Hematocrit 24.8 % (35.0-42.0)
[2023-11-04 02:08] LABS: Myeloperoxidase Ab <1.0 AI (<1.0); Proteinase-3 Ab <1.0 AI (<1.0)
[2023-11-05 20:59] LABS: ANCA Screen Negative (Negative)
[2023-11-05 22:19] LABS: S cerevisiae Ab (IgA) 41.4 U (<=20.0)
[2023-11-05 22:33] LABS: S cerevisiae Ab (IgG) 40.8 U (<=20.0)
== END 2024-01-28 23:59 | disposition home or self-care (01) ==
LOC: CHSLAB 16:19
PROVIDERS: PCP Internal Medicine; Visit Provider Internal Medicine
DX: D64.9 Anemia, unspecified (principal)
CPT/HCPCS: 36415; 36430; 82728; 83540; 85014; 85018; 86036; 86671; 86850; 86900; 86901; 86920; P9016

== ENCOUNTER 2023-11-01 08:00 | Outpatient (CLI) | payer OTHER, MEDICARE, SELFPAY ==
[2023-11-01 09:41] LABS: Toxigenic C. Diff NEGATIVE (NEGATIVE)
[2023-11-07 20:14] LABS: Calprotectin, Stool 4410 mcg/g
== END 2023-11-01 08:01 | disposition home or self-care (01) ==
LOC: CHSLAB 08:05
PROVIDERS: PCP Internal Medicine; Visit Provider Internal Medicine
DX: D64.9 Anemia, unspecified (principal)
CPT/HCPCS: 83993; 87493; J7050

== ENCOUNTER 2023-11-10 15:57 | Outpatient (CLI) | payer OTHER, MEDICARE, SELFPAY ==
[2023-11-10 16:19] LABS: Hematocrit 28.6 % (35.0-42.0); Hemoglobin 9.1 g/dL (11.7-13.8); Mean Corpuscular HGB Conc 31.8 g/dL (32-36); Mean Corpuscular Hemoglobin 26.6 pg (27.0-31.0); Mean Corpuscular Volume 83.6 fL (78.0-102.0); Mean Platelet Volume 8.3 fl (9.2-11.8); Platelet Count Result 438 K/mm3 (150-420); Red Blood Count 3.42 M/mm3 (4.20-5.40); Red Cell Distribution Width 18.2 % (11.6-14.4); White Blood Count 15.9 K/mm3 (4.8-10.8)
[2023-11-10 16:47] LABS: Alanine Aminotransferase 22 U/L (14-59); Albumin Level 2.1 g/dL (3.4-5.0); Alkaline Phosphatase 136 U/L (46-116); Anion Gap 8 mmol/L (4-12); Aspartate Amino Transferase 21 U/L (15-37); Bilirubin,Total 0.5 mg/dL (0.00-1.00); Blood Urea Nitrogen 13 mg/dL (7-18); Calcium 7.8 mg/dL (8.5-10.1); Carbon Dioxide 28 mmol/L (21-32); Chloride 95 mmol/L (98-108); Estimated Glomerular Filt Rate > 60; Ferritin 930 ng/mL (8-252); Glucose 149 mg/dL (70-99); Iron 8 ug/dL (50-170); Osmolality Calculated 275 mOsm/kg (285-295); Sodium 131 mmol/L (136-145); Total Protein 6.7 g/dL (6.4-8.2)
[2023-11-12 03:24] LABS: CA-125 141 U/mL (<35)
== END 2023-11-10 15:58 | disposition home or self-care (01) ==
PROVIDERS: PCP Internal Medicine; Visit Provider Internal Medicine
DX: D64.9 Anemia, unspecified (principal); R19.7 Diarrhea, unspecified; R97.1 Elevated cancer antigen 125 [CA 125]
CPT/HCPCS: 36415; 80053; 82728; 83540; 83735; 85027; 86304

== ENCOUNTER 2023-11-21 14:07 | Outpatient (CLI) | payer MEDICARE, SELFPAY ==
[2023-11-21 14:25] LABS: Hematocrit 29.2 % (35.0-42.0); Hemoglobin 9.1 g/dL (11.7-13.8); Mean Corpuscular HGB Conc 31.2 g/dL (32-36); Mean Corpuscular Hemoglobin 26.2 pg (27.0-31.0); Mean Corpuscular Volume 84.1 fL (78.0-102.0); Mean Platelet Volume 8.4 fl (9.2-11.8); Platelet Count Result 472 K/mm3 (150-420); Red Blood Count 3.47 M/mm3 (4.20-5.40); Red Cell Distribution Width 17.6 % (11.6-14.4); White Blood Count 17.9 K/mm3 (4.8-10.8)
[2023-11-21 15:15] LABS: Alanine Aminotransferase 9 U/L (14-59); Albumin Level 2.3 g/dL (3.4-5.0); Alkaline Phosphatase 114 U/L (46-116); Anion Gap 7 mmol/L (4-12); Aspartate Amino Transferase 10 U/L (15-37); Bilirubin,Total 0.4 mg/dL (0.00-1.00); Blood Urea Nitrogen 16 mg/dL (7-18); Calcium 8.4 mg/dL (8.5-10.1); Carbon Dioxide 28 mmol/L (21-32); Chloride 91 mmol/L (98-108); Estimated Glomerular Filt Rate 49; Ferritin 909 ng/mL (8-252); Glucose 188 mg/dL (70-99); Iron 10 ug/dL (50-170); Osmolality Calculated 268 mOsm/kg (285-295); Potassium 4.6 mmol/L (3.5-5.1); Sodium 126 mmol/L (136-145); Total Protein 7.3 g/dL (6.4-8.2)
== END 2023-11-21 14:08 | disposition home or self-care (01) ==
PROVIDERS: PCP Internal Medicine; Visit Provider Internal Medicine
DX: D50.9 Iron deficiency anemia, unspecified (principal); E87.1 Hypo-osmolality and hyponatremia
CPT/HCPCS: 36415; 80053; 82728; 83540; 85027

== ENCOUNTER 2023-11-24 14:50 | Outpatient (CLI) | payer OTHER, MEDICARE, SELFPAY ==
--- NOTE | ~2023-11-24 | XR_ITS ---
XR chest 2V Ordering provider: Kaushal Heath MD History: 63 years Female with . COUGH, DYSPNEA, Hyponatremia . Comparison: September 24, 2023 FINDINGS: MEDIASTINUM: The cardiac silhouette is not enlarged. LUNGS: No effusions or pneumothorax. Patchy opacities seen in the left upper lobe area. Opacification in the left lung base is seen. OTHER: No free air under the diaphragm. IMPRESSION: Pneumonia in the left upper lobe and left lower lobe. Follow-up to resolution is advised to exclude u nderlying mass. Reviewed, dictated and finalized at location A. IMPRESSION: Pneumonia in the left upper lobe and left lower lobe. Follow-up to resolution i s advised to exclude underlying mass.
[2023-11-24 16:00] LABS: Hematocrit 28.9 % (35.0-42.0); Hemoglobin 8.8 g/dL (11.7-13.8); Mean Corpuscular HGB Conc 30.4 g/dL (32-36); Mean Corpuscular Hemoglobin 25.5 pg (27.0-31.0); Mean Corpuscular Volume 83.8 fL (78.0-102.0); Mean Platelet Volume 8.3 fl (9.2-11.8); Platelet Count Result 481 K/mm3 (150-420); Red Blood Count 3.45 M/mm3 (4.20-5.40); Red Cell Distribution Width 17.7 % (11.6-14.4); White Blood Count 15.1 K/mm3 (4.8-10.8)
[2023-11-24 16:23] LABS: Alanine Aminotransferase 9 U/L (14-59); Albumin Level 2.3 g/dL (3.4-5.0); Alkaline Phosphatase 106 U/L (46-116); Anion Gap 6 mmol/L (4-12); Aspartate Amino Transferase 21 U/L (15-37); Bilirubin,Total 0.4 mg/dL (0.00-1.00); Blood Urea Nitrogen 21 mg/dL (7-18); Carbon Dioxide 29 mmol/L (21-32); Chloride 93 mmol/L (98-108); Estimated Glomerular Filt Rate 50; Glucose 133 mg/dL (70-99); NT Pro B Type Natriuretic Pept 510 pg/mL (0-125); Osmolality Calculated 271 mOsm/kg (285-295); Potassium 4.5 mmol/L (3.5-5.1); Sodium 128 mmol/L (136-145); Total Protein 8.2 g/dL (6.4-8.2)
[2023-11-24 17:10] LABS: Erythrocyte Sedimentation Rate 60 mm/hr (0-20)
== END 2023-11-24 14:51 | disposition home or self-care (01) ==
LOC: CHSLAB 14:55
PROVIDERS: PCP Internal Medicine; Visit Provider Internal Medicine
DX: R05.9 Cough, unspecified (principal); K51.219 Ulcerative (chronic) proctitis with unspecified complications; R06.00 Dyspnea, unspecified; J18.9 Pneumonia, unspecified organism
CPT/HCPCS: 36415; 71046; 80053; 83880; 85027; 85652; 86140

== ENCOUNTER 2023-11-25 12:41 | Outpatient (CLI) | payer OTHER, MEDICARE, SELFPAY ==
--- NOTE | ~2023-11-25 | CT_ITS ---
CT diagnostic chest w con Ordering provider: Kaushal Heath MD History: 63 years Female with . LT LUNG MASS . Comparison: None. Technique: CT chest with IV contrast. Radiation reduction technique utilized.The dose-length product was 136.92 mGy-cm. 100 mL Omnipaque 35 0 was given IV. Findings: VISUALIZED THORACIC INLET: Enlarged Thyroid gland with extension posteriorly to the prevertebral area. Possible enlarged parathy roid glands cannot be excluded. Nodule also seen anteriorly with extension the superior mediastinum. Left supraclavicular lymph nodes with the largest 9 mm. Axillary lymph nodes are seen bilaterally with the largest measures on the left side 1.4 cm. MEDIASTINUM: Aorta/coronary arteries: Mild atheromatous disease. Heart/other: The heart is not enlarged. Possible densities in the area of the pericardium near to th e appendix is not excluded. Lymph nodes: Prevascular and paratracheal lymphadenopathy is seen. Left hilar lymphadenopathy is seen with the largest measures 2.4 cm. The paratracheal lymph node measures 1 cm. The prevascular lymph n odes measure 1.2 cm. LUNGS: Multiple patchy opacities in the left upper lobe which may be pneumonia. Masses cannot be exc luded. Follow-up to resolution. Pneumonia in the left lower lobe is also noted with adjacent moderate pleural effusion. No pneumothorax. VISUALIZED UPPER ABDOMEN: Hypodensity seen in the dome of the liver which measures 2 x 2.1 cm. May re present a cyst. Smaller lesions are seen adjacent to the large one and in the left lobe. Further eval uation advised. Slightly thickened wall of the stomach most likely due to underfilling. Clinical julieta elation advised. Atherosclerotic changes of the origin of the celiac axis and. Superior mesenteric ar teries. Hypodensities seen in the spleen. Follow-up advised. Otherwise, the visualized upper abdomen is normal. MUSCULOSKELETAL: Soft tissues: The superficial soft tissues are normal. Bones: Age appropriate degenerative changes of the spine. IMPRESSION: Multiple patchy appearing opacities in the left upper lobe suggestive of atypical or viral pneumonia . Masses cannot be excluded. Follow-up to resolution advised. Left lower lobe pneumonia with moderate pleural effusion. Mediastinal and left hilar lymphadenopathy. Multiple hypodensities in the liver. Ultrasound evaluation advised. Multiple small hypodensities in the spleen. Enlarged thyroid gland. Ultrasound Evaluation advised. Possible infiltrate is seen in the area of the pericardium near to the apex. Reviewed, dictated and finalized at location A. IMPRESSION: Multiple patchy appearing opacities in the left upper lobe suggestive of atypi erica or viral pneumonia. Masses cannot be excluded. Follow-up to resolution advi sed. Left lower lobe pneumonia with moderate pleural effusion. Mediastinal and left hilar lymphadenopathy. Multiple hypodensities in the liver. Ultrasound evaluation advised. Multiple small hypodensities in the spleen. Enlarged thyroid gland. Ultrasound Evaluation advised. Possible infiltrate is seen in the area of the pericardium near to the apex.
[2023-11-25] MEDS: IRON SUCROSE COMPLEX 200 MG, IRON SUCROSE COMPLEX 100 MG in SODIUM CHLORIDE 0.9% IV 250 ML 125 MG IVPB (13:25)
[2023-11-25 14:05] VITALS: BMI 24.2
[2023-11-25 14:07] VITALS: BP 103/51; PULSE 98; RESP 18; TEMP 36.6; O2SAT 96
== END 2023-11-25 15:45 | disposition home or self-care (01) ==
PROVIDERS: PCP Internal Medicine; Visit Provider Internal Medicine
DX: D50.9 Iron deficiency anemia, unspecified (principal); R91.8 Other nonspecific abnormal finding of lung field; J18.9 Pneumonia, unspecified organism; J90 Pleural effusion, not elsewhere classified; R59.1 Generalized enlarged lymph nodes; K76.9 Liver disease, unspecified; D73.9 Disease of spleen, unspecified; E04.9 Nontoxic goiter, unspecified
CPT/HCPCS: 71260; 96365; 96366; J1756; J7050; Q9967

== ENCOUNTER 2024-01-06 14:36 | Outpatient (CLI) | payer OTHER, MEDICARE, SELFPAY ==
[2024-01-06 14:56] LABS: Basophils Absolute Auto 0.11 K/mm3 (0.00-0.10); Basophils Percent Auto 1.3 % (0.0-1.0); Eosinophils Absolute Auto 0.65 K/mm3 (0.02-0.50); Eosinophils Percent Auto 7.8 % (1.0-6.0); Hematocrit 30.3 % (35.0-42.0); Hemoglobin 9.6 g/dL (11.7-13.8); Immature Granulocyte Absolute 0.03 K/mm3 (0.00-0.00); Immature Granulocyte Percent A 0.4 % (0.0-0.0); Lymphocytes Absolute Auto 2.44 K/mm3 (1.10-4.50); Lymphocytes Percent Auto 29.3 % (18.0-42.0); Mean Corpuscular HGB Conc 31.7 g/dL (32-36); Mean Corpuscular Hemoglobin 28.1 pg (27.0-31.0); Mean Corpuscular Volume 88.6 fL (78.0-102.0); Mean Platelet Volume 8.3 fl (9.2-11.8); Monocytes Absolute Auto 0.63 K/mm3 (0.10-0.90); Monocytes Percent Auto 7.6 % (2.0-11.0); Neutrophils Absolute Auto 4.48 K/mm3 (1.70-7.20); Neutrophils Percent Auto 53.6 % (50.0-70.0); Platelet Count Result 340 K/mm3 (150-420); Red Blood Count 3.42 M/mm3 (4.20-5.40); Red Cell Distribution Width 17.4 % (11.6-14.4); White Blood Count 8.3 K/mm3 (4.8-10.8)
[2024-01-06 16:01] LABS: Add Urine Microscopic? YES; Appearance Urine Clear (Clear); Bilirubin Urine Negative (Negative); Blood Urine 2+ (Negative); Color Urine Light Yellow (Yellow); Glucose Urine UA Negative (Negative); Ketones Urine Negative (Negative); Leukocyte Esterase Ur Trace LEU/UL (Negative); Nitrate Urine Negative (Negative); Protein Urine Negative (Negative); Urobilinogen Urine 0.2 mg/dL (0.2-1.0)
[2024-01-06 16:18] LABS: Bacteria Urine 1+ /hpf
[2024-01-06 16:19] LABS: Squamous Epithelial Cell Urine Few /hpf (Few)
[2024-01-06 16:22] LABS: Alanine Aminotransferase 19 U/L (14-59); Albumin Level 2.6 g/dL (3.4-5.0); Alkaline Phosphatase 110 U/L (46-116); Anion Gap 8 mmol/L (4-12); Aspartate Amino Transferase 15 U/L (15-37); Bilirubin,Total 0.3 mg/dL (0.00-1.00); Blood Urea Nitrogen 17 mg/dL (7-18); Carbon Dioxide 31 mmol/L (21-32); Chloride 101 mmol/L (98-108); Estimated Glomerular Filt Rate 60; Ferritin 839 ng/mL (8-252); Glucose 113 mg/dL (70-99); Iron 37 ug/dL (50-170); Osmolality Calculated 292 mOsm/kg (285-295); Potassium 5.1 mmol/L (3.5-5.1); Sodium 140 mmol/L (136-145); Total Protein 7.1 g/dL (6.4-8.2); Vitamin B12 963 pg/mL (193-986)
[2024-01-07 08:17] LABS: Prealbumin 23 mg/dL (17-34)
[2024-01-07 14:05] LABS: Magnesium 1.8 mg/dL (1.8-2.4)
== END 2024-01-06 14:37 | disposition home or self-care (01) ==
PROVIDERS: PCP Internal Medicine; Visit Provider Internal Medicine
DX: E11.65 Type 2 diabetes mellitus with hyperglycemia (principal); D64.9 Anemia, unspecified; E44.0 Moderate protein-calorie malnutrition; D50.9 Iron deficiency anemia, unspecified; N39.0 Urinary tract infection, site not specified; I10 Essential (primary) hypertension
CPT/HCPCS: 36415; 80053; 81001; 82607; 82728; 83540; 83735; 84134; 85025; 87086

== ENCOUNTER 2024-02-02 08:08 | Outpatient (CLI) | payer OTHER, MEDICARE, SELFPAY ==
[2024-02-02 08:32] LABS: Hematocrit 35.4 % (35.0-42.0); Hemoglobin 11.4 g/dL (11.7-13.8); Mean Corpuscular HGB Conc 32.2 g/dL (32-36); Mean Corpuscular Hemoglobin 28.7 pg (27.0-31.0); Mean Corpuscular Volume 89.2 fL (78.0-102.0); Mean Platelet Volume 8.5 fl (9.2-11.8); Platelet Count Result 202 K/mm3 (150-420); Red Blood Count 3.97 M/mm3 (4.20-5.40); Red Cell Distribution Width 15.6 % (11.6-14.4); White Blood Count 6.1 K/mm3 (4.8-10.8)
[2024-02-02 09:20] LABS: Ferritin 638 ng/mL (8-252); Iron 59 ug/dL (50-170)
--- OUTSIDE RECORDS SUMMARY | 2024-02-08 04:04 | XMS_ITS | Clinical Summary ---
Author Organization [facility] Address [facility] [place] [address] Care Team Providers Care Armament Aircraft Mechanic Name Role Phone Bigg Delarosa MD Unavailable [phone] Jefe Choe MD Unavailable + Melissa Rhodes MD Unavailable [phone] Kaushal Heath MD Primary Care Provider + [phone] Allergies Active Allergy Reactions Criticality Noted Date Comments Azithromycin Rash Medium 02/17/2007 Medications losartan (COZAAR) 25 mg tablet Take 1 tablet (25 mg total) by mouth daily [address] (PROTONIX) 40 mg EC tablet Take 1 tablet (40 mg total) by mouth daily 4 Active potassium chloride ER 10 mEq CR tablet Take 1 tablet/capsule (10 mEq total) by mouth daily 4 Active cyanocobalamin (Vitamin B-12) 2,500 mcg tablet, sublingual Take 1 tablet (2,500 mcg total) by mouth daily Active loperamide (IMODIUM) 2 mg capsuleIndicatio ns:Diarrhea Secondary to Inflammatory Bowel Disease Take 1 capsule (2 mg total) by mouth 4 (four) times a day as needed for diarrhea Active magnesium oxide 500 mg capsule Take by mouth daily Active acetaminophen (TYLENOL) 500 mg tablet Take 2 tablets (1,000 mg total) by mouth every 6 (six) hours as needed (pain) 4 Active polyethylene glycol (MIRALAX) 17 gram/dose bulk powderIndication s:constipation Take 17 g by mouth daily 116 g 2 4 Active Additional Information Patient not taking.Reported on 02/03/2024 oxyCODONE (ROXICODONE) 5 mg immediate release tabletIndication s:Pain Take 1 tablet (5 mg total) by mouth every 4 (four) hours as needed for pain 15 tablet Active prenat.vits,erica, ukd-surc-hadvy tablet Take by mouth Active enoxaparin (LOVENOX) 40 mg/0.4 mL syringeIndicatio ns:Deep Vein Thrombosis Prevention Inject 0.4 mL (40 mg total) under the skin daily for 21 days 8.4 mL 4 024 Active Problems Problem Noted Date Diagnosed Date Colostomy in place ([facility]/HCC) 01/13/2024 Fever 12/09/2023 Ulcerative pancolitis with complication ([facility] ) 12/05/2023 Assessment & Plan (12/26/2023 11:47 AM BAG LOADER MACHINE OPERATOR): Patient is a 63 y.o. female with a history of hypertension, type 2 diabetes, and inflammatory bowel disease who is admitted from [facility] for progressive weight loss and nausea in the setting of multiple admissions for diverticulitis complicated by contained sigmoid perforation, scattered liver and spleen abscesses and adnexal mass. She was admitted to [facility] on 11/24 for further workup and ID was consulted on 11/25 for antibiotic recommendations. Please see consult note regarding details leading up to current admission. CT C/A/P 11/25: FRANKLIN peribronchovascular nodules, some of which are cavitating & associated smooth interlobular septal line thickening. Supraclavicular, mediastinal and hilar supraclavicular lymphadenopathy. Small L pleural effusion with pleural thickening. Findings new since 10/02/23. Continued worsening of contained perforation of proximal sigmoid colon. Improving hepatic and splenic abscesses. PET 12/03: slight increase in phlegmonous changes sounding known colon perforation. No organized fluid collection. Decrease in multiple pulm opacities with mild FDG uptake and increase in cavitation in keeping w/ resolving infectious/inflammatory processes. Near resolution of hepatic and splenic abscesses. Cystic R adnexal lesion w/o focus of elevated FDG uptake. Hypermetabolic soft tissue nodule in pelvic peritoneum and within a fat-containing umbilical hernia. Left colon 12/23: enterococcus faecium, klebsiella pneumoniae, mixed micro Patient went to the OR 12/23 with [facility] [facility], CRS and urology for ex lap, left colectomy with end colostomy, LIBRA, BSO and ureteral stent placement. Surgery reporting source control archived. Given source control has been achieved, we are planning on 5 days of antibiotics from surgery. 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 Encouraged ambulation and IS use. Reviewed ID involvement in care and plan to stop antibiotics 5 days from surgery. Questions answered as needed and patient in agreement with plan. Recommendations. -Continue zosyn and linezolid -While on the IV antibiotics, please obtain a weekly cbc with diff and CMP to antibiotic toxicity monitoring -Recommend 5 days of antibiotics from surgery. -No ID follow up needed. -Thank you for allowing us to participate in the care of this patient. For questions or concerns, please do not hesitate to reach out. ID signing off Severe malnutrition 11/27/2023 Consolidation of left upper lobe of lung (CMS/HC C) 11/27/2023 Assessment & Plan (12/03/2023 3:35 PM CDT): Darius Russo is a 63 yo female with history of IBD, adnexal mass, complicated diverticulitis with contained perforation, and HTN who presented with weight loss and cough. Found to have leukocytosis and CT chest with FRANKLIN peribronchial opacities with septal thickening along with left pleural effusion and LLL collapse/atelectasis. There is no cavitation on the CT. Concern is highest for an infectious process given the distribution on imaging. Bronch with BAL and TBBX of lingula completed 11/27 with infectious studies all no growth to date, path showing OP, cytology negative. - Recommend PET CT --- If unable to obtain PET CT would get repeat CT chest without contrast in 1 week to check for improvement in FRANKLIN opacities Splenic abscess 11/26/2023 Assessment & Plan (12/25/2023 12:55 PM BAG LOADER MACHINE OPERATOR): Near resolution of hepatic and splenic abscesses. No plans for repeat imaging given improvement. Continue antibiotics as described elsewhere. Pulmonary nodule 11/26/2023 Assessment & Plan (12/26/2023 11:38 AM BAG LOADER MACHINE OPERATOR): Patient is a 63 y.o. female with a history of hypertension, type 2 diabetes, and inflammatory bowel disease who is admitted from [facility]astro[facility]ology Clinic for progressive weight loss and nausea in the setting of multiple admissions for diverticulitis complicated by contained sigmoid perforation, scattered liver and spleen abscesses and adnexal mass. She was admitted to [facility] on 11/24 for further workup and ID was consulted on 11/25 for antibiotic recommendations. Please see consult note regarding details leading up to current admission. Results: T spot 10/26: negative EBV 10/26: positive ab and IgG Blood cultures 11/03: NG CT C/A/P 11/25: FRANKLIN peribronchovascular nodules, some of which are cavitating & associated smooth interlobular septal line thickening. Supraclavicular, mediastinal and hilar supraclavicular lymphadenopathy. Small L pleural effusion with pleural thickening. Findings new since 10/02/23. Continued worsening of contained perforation of proximal sigmoid colon. Improving hepatic and splenic abscesses. Blast 11/25: negative Serum Crypto antigen 11/25: negative Histo antibody 11/25: negative Blood cultures 11/26: NF AFB blood cultures 11/26: NGTD HIV 11/26: negative Galactomannan 11/27: negative Histo urine antigen 11/27: negative BAL FRANKLIN AFB 11/27: No AFB seen, NGTD BAL Mycology 11/27: NGTD Pneumocystis DFA BAL 11/27: Negative BAL bacterial 11/27: upper respiratory noah BAL CMV 11/27: Not detected Mold blood culture 11/28: NGTD FRANKLIN lung bx 11/27: organizing lung injury and bronchiolitis. GMS and AFB stains negative. PET 12/03: slight increase in phlegmonous changes sounding known colon perforation. No organized fluid collection. Decrease in multiple pulm opacities with mild FDG uptake and increase in cavitation in keeping w/ resolving infectious/inflammatory processes. Near resolution of hepatic and splenic abscesses. Cystic R adnexal lesion w/o focus of elevated FDG uptake. Hypermetabolic soft tissue nodule in pelvic peritoneum and within a fat-containing umbilical hernia. Blood cultures 12/08: NG CT chest 12/24: Resolution of left upper and lower lobe cavitary nodular consolidations with residual atelectasis. Patient underwent CT chest yesterday that noted resolution of previous cavitary nodular findings. Reviewed antibiotic course with patient and negative AFB and mycology cultures. Explained that since lung findings and symptoms have improved, likely source of the pulmonary infection is the same process that caused the hepatic and spleen infection and that this is all likely related to her GI pathology. Recommendations: - Complete 5 days of linezolid and Zosyn -No further workup needed from an ID perspective. -Thank you for allowing us to participate in the care of this patient. For questions or concerns, please do not hesitate to reach out. Hepatic abscess 11/26/2023 Assessment & Plan (12/25/2023 12:55 PM BAG LOADER MACHINE OPERATOR): Near resolution of hepatic and splenic abscesses. No plans for repeat imaging given improvement. Continue antibiotics as described elsewhere. 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 Hypertension 10/20/2023 Type II diabetes mellitus 10/20/2023 Diverticulitis of intestine 10/20/2023 Resolved Problems Problem Noted Date Diagnosed Date Resolved Date Moderate protein-calorie mal nutrition (CMS/HCC) 10/03/2023 11/25/2023 Abdominal pain 10/02/2023 10/20/2023 Encounters Date Type Department Care Team Description 02/03/2024 2:30 PM BAG LOADER MACHINE OPERATOR Office Visit [facility] Surgery [facility] Medical Office Building 4 [address] [place] [address] Yo Ferreira MD Colostomy in place (CMS/HCC) (HCC) (Primary Dx) 01/23/2024 Telephone [facility] 1 [place] [address] 01/22/2024 4:00 PM BAG LOADER MACHINE OPERATOR Office Visit [facility] Obstetrics and Gynecology [address] [place] [address] for Advanced Medicine 13th [place] [address] [place] [address] Vanessa Carrasco NP Postop check (Primary Dx); Ovarian tumor of borderline malignancy, left 01/14/2024 Documentation [facility] Gastroenterology [address] [facility] Medicine 12th [place] [address] [place] [address] Che Gamble, RN Treatment Plan Update (01/12/2024 rov) 01/12/2024 11:00 AM BAG LOADER MACHINE OPERATOR Office Visit [facility] Gastroenterology [address] [facility] 2nd Floor [address] [place] [address] Katherine Stephenson NP Diverticulitis of large intestine with perforation and abscess, unspecified bleeding status (Primary Dx); Colostomy in place (CMS/HCC) (HCC) 01/08/2024 Telephone [facility] 1 [place] [id number] Carmen Johnson RD 01/05/2024 Telephone [facility] Surgery [address] [place] [address] Medical Office Building 4 [address] [place] [address] Eugenie Marie, ABHAY 01/02/2024 Telephone [facility] Gastroenterology [address] [facility] 12th [place] [address] [place] [address] [facility] Follow Up 12/24/2023 12:10 PM BAG LOADER MACHINE OPERATOR - 12/24/2023 5:55 PM BAG LOADER MACHINE OPERATOR Surgery [facility] Operating Room 1 [place] [phone] Yo Ferreira MD (MUTSERVANDO/ NOEMITCOMBO) RESECTION LEFT COLON 12/24/2023 11:43 AM BAG LOADER MACHINE OPERATOR Anesthesia Event [facility] Operating [facility] 1 [place] [phone] Stan Malik MD Hawksworth, Mallory Anne, MD 12/24/2023 Orders Only [facility] 1 [place] [phone] Yo Ferreira MD 12/24/2023 Orders Only [facility] Operating [facility] 1 [place] [address] Yo Ferreira MD 12/08/2023 2:36 PM CDT Anesthesia Event [facility] 1 [place] [address] Chris Ricci NP 11/25/2023 6:29 PM CDT - 12/30/2023 6:03 PM BAG LOADER MACHINE OPERATOR Hospital Encounter [facility] 1 [place] [address] Maxime Lee MD Jeon, Alvin, MD Morgan, Zachary A., MD Patel, Kieran, MD Mutch, Matthew G., MD Splenic abscess (Primary Dx); Pulmonary nodule; Hepatic abscess; Ulcerative pancolitis with complication (CMS/HCC) (HCC); Diverticulitis of large intestine with perforation without abscess or bleeding Discharge Disposition: Discharge to home, home health skilled care 11/25/2023 9:00 AM CDT Office Visit [facility] Gastroenterology [address] [place] [address] Medicine 12th [place] [address] [place] [address] Gildardo Jung MD History of chronic ulcerative colitis (Primary Dx); Moderate protein-calorie malnutrition (CMS/HCC) (HCC) 11/25/2023 Orders Only [facility] Scanning, Provider 11/25/2023 Documentation [facility] Gastroenterology [address] [facility] 12th [place] [address] [place] [address] Che Gamble, RN Treatment Plan Update (11/25/2023 rov) 11/24/2023 Orders Only [facility] Scanning, Provider 11/14/2023 Telephone [facility] Oncology [facility] 7th [place] [address] [place] [address] 11/14/2023 SHOP/CHAP Initial Outreach [facility] OP CASE MANAGEMENT 1 [place] [address] Chen Philippe, FRANKLYN 11/14/2023 Orders Only [facility] Michelle Patel, RN 11/13/2023 2:31 PM CDT - 11/13/2023 11:59 PM CDT Hospital Encounter [facility] [address] [place] [address] Melissa Rhodes MD Abdominal pain Discharge Disposition: Discharge to home or self care 11/13/2023 12:30 PM CDT - 11/13/2023 1:15 PM CDT Surgery [facility] [address] [address] Gildardo Jung MD COLON BIOPSY 11/13/2023 12:12 PM CDT Anesthesia Event [address] [address] Ciro Seay MD 11/13/2023 11:20 AM CDT - 11/13/2023 2:15 PM CDT Hospital Encounter [address] [address] Gildardo Jung MD History of chronic ulcerative colitis Discharge Disposition: Discharge to home or self care 11/13/2023 Orders Only [facility] Gastroenterology [address] [place] [address] Advanced Medicine 12th [place] [address] [place] [address] Gildardo Jung MD Diverticulitis of large intestine with abscess without bleeding (Primary Dx) 11/12/2023 SHOP/CHAP Initial Outreach [facility] OP CASE MANAGEMENT 1 [place] [address] Chen Philippe, VISITING HOUSEKEEPER 11/10/2023 Orders Only [facility] Gastroenterology [address] [place] [address] Advanced Medicine 12th [place] [address] [place] [address] Gildardo Jung MD from Last 3 Months Immunizations Name Administration Dates Next Due Tdap 10/27/2020,12/29/2019 Surgical History Surgery Date Site/Laterality Comments TUBAL LIGATION CHOLECYSTECTOMY 08/18/2023 - 09/17/2023 COLONOSCOPY 02/17/2021 - 02/16/2022 LEFT COLECTOMY 12/24/2023 WITH END COLOSTOMY TOTAL ABDOMINAL HYSTERECTOMY W/ BILATERAL SALPINGOOPHORECTOMY 12/24/2023 Medical History Medical History Date Comments Hypertension Diabetes mellitus (HCC) Adrenal mass (HCC) Diverticulitis Family History Medical History Relation Name Comments Emphysema Father Diabetes Mother Anesthesia problems Neg Hx Malig Hypertension Neg Hx Malig Hyperthermia Neg Hx Pseudochol deficiency Neg Hx Relation Name Status Comments Father Mother Social History Tobacco Use Types Packs/Day Years Used Date Smoking Tobacco: Never Passive Smoke Exposure: Never Smokeless Tobacco: Never Tobacco Cessation:Counseling Given: Not Answered [facility] Utilities Answer Date Recorded In the past 12 months has [employer] electric, gas, oil, or water company threatened to shut off services in your home? No 11/29/2023 Social Connection and Isolat ion Panel [NHANES] Answer Date Recorded In a typical week, how many times do you talk on the phone with family, friends, or neighbors? More than three times a week 11/29/2023 How often do you get togethe r with friends or relatives? More than three times a week 11/29/2023 How often do you attend [facility] or [facility] services? 1 to 4 times per year 11/29/2023 Do you belong to any clubs o r organizations such as islam groups, unions, fraternal or athletic groups, or school groups? No 11/29/2023 How often do you attend meet ings of the clubs or organizations you belong to? Never 11/29/2023 Are you , , di vorced, , never , or living with a partner? 11/29/2023 AUDIT-C Answer Date Recorded Q1: How often do you have a drink containing alcohol? Never 11/13/2023 Q2: How many drinks containi ng alcohol do you have on a typical day when you are drinking? Patient does not drink Q3: How often do you have si x or more drinks on one occasion? Never 11/13/2023 Overall Financial Resource Strain (CARDIA) Answe r Date Recorded How hard is it for you to pa y for the very basics like food, housing, medical care, and heating? Not hard at all 11/29/2023 PHQ-2 Answer Date Recorded PHQ-2 Total Score 0 11/29/2023 Hunger Vital Sign Answer Date Recorded Within the past 12 months, y ou worried that your food would run out before you got the money to buy more. Never true 11/29/19 24 Within the past 12 months, t he food you bought just didn't last and you didn't have money to get more. Never true 11/29/2023 PRAPARE - Transportation Answer Date Re corded In the past 12 months, has l ack of transportation kept you from medical appointments or from getting medications? No 11/17 In the past 12 months, has l ack of transportation kept you from meetings, work, or from getting things needed for daily living? No 11/29/2023 Housing Stability Vital Sign Answer Robin e Recorded In the last 12 months, was t here a time when you were not able to pay the mortgage or rent on time? No 11/29/2023 In the past 12 months, how m any times have you moved where you were living? 0 11/29/2023 At any time in the past 12 m [facility], were you homeless or living in a retirement (including now)? No 11/29/2023 Personal Safety Answer Date Recorded Have you ever been in or are you currently in a harmful physical or emotional relationship or is someone making you feel afraid or unsafe? Denies 12/24/2023 Comments No Sex and Gender Information Value Date Recorded Sex Assigned at Not on file Legal Sex Female 3:11 PM CDT Gender Identity Not on file Sexual Orientation Not on file Obstetrics History Para Term AB IAB SAB Ectopic Multiple Livin g Live Births 2 2 2 2 Date Outcome GA Total Labor Labor/2nd/3rd Weight Sex Type Anes PTL Shelly A1 A5 Name Clin Comments Twins Last Filed Vital Signs Vital Sign Reading Time Taken Comments Blood Pressure 110/68 02/03/2024 2:08 PM BAG LOADER MACHINE OPERATOR Pulse 99 02/03/2024 2:08 PM BAG LOADER MACHINE OPERATOR Temperature 36.7 ??C (98 ??F) 02/03/2024 2:08 PM BAG LOADER MACHINE OPERATOR Respiratory Rate 16 01/22/2024 4:07 PM BAG LOADER MACHINE OPERATOR Oxygen Saturation 100% 02/03/2024 2:08 PM BAG LOADER MACHINE OPERATOR Inhaled Oxygen Concentration - - Weight 53.5 kg (118 lb) 02/03/2024 2:08 PM BAG LOADER MACHINE OPERATOR Height 154.9 cm (5' 1 ) 02/03/2024 2:08 PM BAG LOADER MACHINE OPERATOR Body Mass Index 22.3 02/03/2024 2:08 PM BAG LOADER MACHINE OPERATOR Plan of Treatment Health Maintenance Due Date Last Done Comments Albumin Creatinine Ratio, Urine 1958 Breast Cancer Screening-Mammogram 1958 Osteoporosis Screening-Bone Density Scan 1960 Dilated Eye Exam 1958 Foot Exam 1960 Pneumococcal vaccine 65+ (1 of 2 - PCV) 1964 Zoster Vaccine (1 of 2) 2008 Well Visit 65+ 05/09/2023 Covid-19 Vaccine (3 - 2023-2 5 season) 2023 02/29/2020, 02/08/2020 Influenza Vaccine (#1) 2023 Hemoglobin A1C 05/03/2024 11/04/2023, 10/18, 10/03/2023 Depression Screening 11/24/2024 11/25/2023 Lipid Panel 12/03/2024 12/04/2023, 10/27/2023 eGFR 12/27/2024 12/28/2023, 11/10/2023, 12/26/2023, Additional history exists Fall Risk Assessment 12/29/2024 12/30/2023 DTaP/Tdap/Td Vaccine (3 - Td or Tdap) 10/27/2030 10/27/2020, 12/29/2019 Colon Cancer Screening-Colonoscopy 11/12/20332023 Hepatitis B Screening Completed 10/27/2023 Hepatitis C Screening Completed 10/27/2023 Procedures Procedure Name Priority Date/Time Associated Diagnosis Comments POCT GLUCOSE DEVICE Routine 12/30/2023 12:34 PM BAG LOADER MACHINE OPERATOR POCT GLUCOSE DEVICE Routine 12/30/2023 8 :18 AM BAG LOADER MACHINE OPERATOR POCT GLUCOSE DEVICE Routine 12/29/2023 8 :02 PM BAG LOADER MACHINE OPERATOR POCT GLUCOSE DEVICE Routine 12/29/2023 5 :35 PM BAG LOADER MACHINE OPERATOR POCT GLUCOSE DEVICE Routine 12/29/2023 11:55 AM BAG LOADER MACHINE OPERATOR POCT GLUCOSE DEVICE Routine 12/29/2023 7 :57 AM BAG LOADER MACHINE OPERATOR EGFR Timed 12/28/2023 10:18 PM BAG LOADER MACHINE OPERATOR BASIC METABOLIC PANEL Timed 12/28/2023 10:18 PM BAG LOADER MACHINE OPERATOR CBC WITHOUT DIFFERENTIAL Timed 12/28/2023 10:18 PM BAG LOADER MACHINE OPERATOR POCT GLUCOSE DEVICE Routine 12/28/2023 9 :13 PM BAG LOADER MACHINE OPERATOR POCT GLUCOSE DEVICE Routine 12/28/2023 4 :21 PM BAG LOADER MACHINE OPERATOR POCT GLUCOSE DEVICE Routine 12/28/2023 12:39 PM BAG LOADER MACHINE OPERATOR POCT GLUCOSE DEVICE Routine 12/28/2023 7 :33 AM BAG LOADER MACHINE OPERATOR POCT GLUCOSE DEVICE Routine 12/27/2023 8 :57 PM BAG LOADER MACHINE OPERATOR EGFR Routine 12/27/2023 8:56 PM BAG LOADER MACHINE OPERATOR BASIC METABOLIC PANEL Routine 12/27/2023 8:56 PM BAG LOADER MACHINE OPERATOR CBC WITHOUT DIFFERENTIAL Routine 12/27/2023 8:56 PM BAG LOADER MACHINE OPERATOR POCT GLUCOSE DEVICE Routine 12/27/2023 6 :29 PM BAG LOADER MACHINE OPERATOR POCT GLUCOSE DEVICE Routine 12/27/2023 12:36 PM BAG LOADER MACHINE OPERATOR CT ABDOMEN PELVIS W CONTRAST ED Urgent/IP Urgent 12/27/2023 11:33 AM BAG LOADER MACHINE OPERATOR POCT GLUCOSE DEVICE Routine 12/27/2023 7 :54 AM BAG LOADER MACHINE OPERATOR DIFFERENTIAL AUTO STAT 12/27/2023 3:3 9 AM BAG LOADER MACHINE OPERATOR CBC WITH AUTO DIFFERENTIAL STAT 12/27/2023 3:39 AM BAG LOADER MACHINE OPERATOR TRANSFUSE RED BLOOD CELLS Timed 12/27/2023 12:32 AM BAG LOADER MACHINE OPERATOR PREPARE RBC Timed 12/26/2023 11:49 PM BAG LOADER MACHINE OPERATOR EGFR Timed 12/26/2023 10:32 PM BAG LOADER MACHINE OPERATOR BASIC METABOLIC PANEL Timed 12/26/2023 10:32 PM BAG LOADER MACHINE OPERATOR CBC WITHOUT DIFFERENTIAL Timed 12/26/2023 10:32 PM BAG LOADER MACHINE OPERATOR POCT GLUCOSE DEVICE Routine 12/26/2023 7 :59 PM BAG LOADER MACHINE OPERATOR POCT GLUCOSE DEVICE Routine 12/26/2023 5 :27 PM BAG LOADER MACHINE OPERATOR POCT GLUCOSE DEVICE Routine 12/26/2023 3 :49 PM BAG LOADER MACHINE OPERATOR POCT GLUCOSE DEVICE Routine 12/26/2023 12:05 PM BAG LOADER MACHINE OPERATOR POCT GLUCOSE DEVICE Routine 12/26/2023 8 :18 AM BAG LOADER MACHINE OPERATOR LACTATE STAT 12/26/2023 2:45 AM BAG LOADER MACHINE OPERATOR CBC WITHOUT DIFFERENTIAL STAT 12/26/2023 2:45 AM BAG LOADER MACHINE OPERATOR TRANSFUSE RED BLOOD CELLS Timed 12/25/2023 11:02 PM BAG LOADER MACHINE OPERATOR PREPARE RBC Timed 12/25/2023 10:25 PM BAG LOADER MACHINE OPERATOR HEPATIC FUNCTION PANEL Timed 8:46 PM BAG LOADER MACHINE OPERATOR EGFR Timed 12/25/2023 8:46 PM BAG LOADER MACHINE OPERATOR BASIC METABOLIC PANEL Timed 12/25/2023 8:46 PM BAG LOADER MACHINE OPERATOR CBC WITHOUT DIFFERENTIAL Timed 12/25/2023 8:46 PM BAG LOADER MACHINE OPERATOR POCT GLUCOSE DEVICE Routine 12/25/2023 8 :39 PM BAG LOADER MACHINE OPERATOR POCT GLUCOSE DEVICE Routine 12/25/2023 4 :57 PM BAG LOADER MACHINE OPERATOR CT CHEST W CONTRAST IP Routine 12/25/2023 4 :34 PM BAG LOADER MACHINE OPERATOR POCT GLUCOSE DEVICE Routine 12/25/2023 2 :12 PM BAG LOADER MACHINE OPERATOR POCT GLUCOSE DEVICE Routine 12/25/2023 11:56 AM BAG LOADER MACHINE OPERATOR INFECTION PREVENTION ANGIE AURIS PCR, SURVEILLANCE Routine 12/25/2023 10:27 AM BAG LOADER MACHINE OPERATOR POCT GLUCOSE DEVICE Routine 12/25/2023 8 :45 AM BAG LOADER MACHINE OPERATOR EGFR Timed 12/24/2023 9:58 PM BAG LOADER MACHINE OPERATOR BASIC METABOLIC PANEL Timed 12/24/2023 9:58 PM BAG LOADER MACHINE OPERATOR CBC WITHOUT DIFFERENTIAL Timed 12/24/2023 9:58 PM BAG LOADER MACHINE OPERATOR POCT GLUCOSE DEVICE Routine 12/24/2023 8 :41 PM BAG LOADER MACHINE OPERATOR POCT GLUCOSE DEVICE Routine 12/24/2023 6 :04 PM BAG LOADER MACHINE OPERATOR POC BLOOD GAS AND CHEMISTRIES, ARTERIAL Routine 12/24/2023 4:47 PM BAG LOADER MACHINE OPERATOR POCT GLUCOSE DEVICE Routine 12/24/2023 4 :07 PM BAG LOADER MACHINE OPERATOR POC BLOOD GAS AND CHEMISTRIES, ARTERIAL Routine 12/24/2023 3:22 PM BAG LOADER MACHINE OPERATOR MYCOBACTERIOLOGY AFB CULTURE AND ACID-FAST STAIN Routine 12/24/2023 3:00 PM BAG LOADER MACHINE OPERATOR MYCOLOGY (FUNGAL) CULTURE AND STAIN Routine 12/24/2023 3:00 PM BAG LOADER MACHINE OPERATOR TISSUE AEROBIC AND ANAEROBIC CULTURE AND GRAM STAIN Routine 12/24/2023 3:00 PM BAG LOADER MACHINE OPERATOR POC BLOOD GAS AND CHEMISTRIES, ARTERIAL Routine 12/24/2023 1:47 PM BAG LOADER MACHINE OPERATOR AL AN PROCEDURE PLACEHOLDER Routine 12/24/2023 1:38 PM BAG LOADER MACHINE OPERATOR AL AN PROCEDURE PLACEHOLDER Routine 12/24/2023 1:37 PM BAG LOADER MACHINE OPERATOR AL AN ELECTIVE ENDOTRACHEAL AIRWAY Routine 12/24/2023 1:37 PM BAG LOADER MACHINE OPERATOR SURGICAL PATHOLOGY Routine 12/24/2023 12:57 PM BAG LOADER MACHINE OPERATOR CYTOLOGY Routine 12/24/2023 12:49 PM BAG LOADER MACHINE OPERATOR PLACEMENT PREOPERATIVE STENT - URETERAL 12/24/2023 11:46 AM BAG LOADER MACHINE OPERATOR Ulcerative pancolitis with complication (CMS/HCC) (HCC) Case Notes [id number]- Panel being added per Ahmed via phone call (EF) HYSTERECTOMY ABDOMINAL SALPINGO-OOPHORECTOMY 12/24/2023 11:46 AM BAG LOADER MACHINE OPERATOR Ulcerative pancolitis with complication (CMS/HCC) (HCC) Case Notes [id number]- Panel being added per Ahmed via phone call (EF) COLOSTOMY 12/24/2023 11:46 AM BAG LOADER MACHINE OPERATOR Ulcerative pancolitis with complication (CMS/HCC) (HCC) Case Notes 11/5@0852- Panel being added per Ahmed via phone call (EF) RESECTION LEFT COLON 12/24/2023 11:46 AM BAG LOADER MACHINE OPERATOR Ulcerative pancolitis with complication (CMS/HCC) (HCC) Case Notes [id number]- Panel being added per Ahmed via phone call (EF) TYPE AND SCREEN STAT 12/24/2023 11:13 AM BAG LOADER MACHINE OPERATOR POC BLOOD GAS AND CHEMISTRIES, VENOUS Routine 12/24/2023 11:09 AM BAG LOADER MACHINE OPERATOR EGFR Routine 12/22/2023 9:36 PM BAG LOADER MACHINE OPERATOR DIFFERENTIAL AUTO Routine 12/22/2023 9:3 6 PM BAG LOADER MACHINE OPERATOR TYPE AND SCREEN Timed 12/22/2023 9:36 PM BAG LOADER MACHINE OPERATOR PROTIME-INR Routine 12/22/2023 9:36 PM BAG LOADER MACHINE OPERATOR RENAL FUNCTION PANEL Routine 12/22/2023 9:36 PM BAG LOADER MACHINE OPERATOR MAGNESIUM Routine 12/22/2023 9:36 PM BAG LOADER MACHINE OPERATOR CBC WITH AUTO DIFFERENTIAL Routine 12/22/2023 9:36 PM BAG LOADER MACHINE OPERATOR INFECTION PREVENTION ANGIE AURIS PCR, SURVEILLANCE Routine 12/21/2023 9:32 PM BAG LOADER MACHINE OPERATOR EGFR Timed 12/19/2023 10:29 PM CDT DIFFERENTIAL AUTO Timed 12/19/2023 10:29 PM CDT MAGNESIUM Timed 12/19/2023 10:29 PM CDT RENAL FUNCTION PANEL Timed 12/19/2023 10:29 PM CDT CBC WITH AUTO DIFFERENTIAL Timed 12/19/2023 10:29 PM CDT TYPE AND SCREEN Timed 12/19/2023 10:29 PM CDT DIFFERENTIAL AUTO Routine 12/17/2023 8:2 7 PM CDT CBC WITH AUTO DIFFERENTIAL Routine 12/17/2023 8:27 PM CDT EGFR Timed 12/16/2023 10:51 PM CDT DIFFERENTIAL AUTO Timed 12/16/2023 10:51 PM CDT MAGNESIUM Timed 12/16/2023 10:51 PM CDT RENAL FUNCTION PANEL Timed 12/16/2023 10:51 PM CDT CBC WITH AUTO DIFFERENTIAL Timed 12/16/2023 10:51 PM CDT TYPE AND SCREEN Timed 12/16/2023 10:51 PM CDT POCT GLUCOSE DEVICE Routine 12/16/2023 8 :38 PM CDT POCT GLUCOSE DEVICE Routine 12/16/2023 4 :34 PM CDT POCT GLUCOSE DEVICE Routine 12/16/2023 11:53 AM CDT POCT GLUCOSE DEVICE Routine 12/16/2023 8 :13 AM CDT INFECTION PREVENTION ANGIE AURIS PCR, SURVEILLANCE Routine 12/15/2023 8:46 PM CDT POCT GLUCOSE DEVICE Routine 12/15/2023 8 :03 PM CDT POCT GLUCOSE DEVICE Routine 12/15/2023 5 :20 PM CDT POCT GLUCOSE DEVICE Routine 12/15/2023 12:12 PM CDT POCT GLUCOSE DEVICE Routine 12/15/2023 8 :11 AM CDT POCT GLUCOSE DEVICE Routine 12/14/2023 8 :37 PM CDT POCT GLUCOSE DEVICE Routine 12/14/2023 5 :32 PM CDT POCT GLUCOSE DEVICE Routine 12/14/2023 11:23 AM CDT POCT GLUCOSE DEVICE Routine 12/14/2023 7 :47 AM CDT EGFR Timed 12/13/2023 9:51 PM CDT DIFFERENTIAL AUTO Timed 12/13/2023 9:5 1 PM CDT RENAL FUNCTION PANEL Timed 12/13/2023 9:51 PM CDT MAGNESIUM Timed 12/13/2023 9:51 PM CDT CBC WITH AUTO DIFFERENTIAL Timed 12/13/2023 9:51 PM CDT TYPE AND SCREEN Timed 12/13/2023 9:51 PM CDT POCT GLUCOSE DEVICE Routine 12/13/2023 8 :24 PM CDT POCT GLUCOSE DEVICE Routine 12/13/2023 4 :31 PM CDT POCT GLUCOSE DEVICE Routine 12/13/2023 11:07 AM CDT POCT GLUCOSE DEVICE Routine 12/13/2023 7 :48 AM CDT POCT GLUCOSE DEVICE Routine 12/12/2023 7 :59 PM CDT POCT GLUCOSE DEVICE Routine 12/12/2023 5 :09 PM CDT POCT GLUCOSE DEVICE Routine 12/12/2023 11:19 AM CDT POCT GLUCOSE DEVICE Routine 12/12/2023 7 :24 AM CDT HEPATIC FUNCTION PANEL Routine 10:15 PM CDT EGFR Routine 12/11/2023 10:15 PM CDT DIFFERENTIAL AUTO Routine 12/11/2023 10:15 PM CDT MAGNESIUM Routine 12/11/2023 10:15 PM CDT RENAL FUNCTION PANEL Routine 12/11/2023 10:15 PM CDT CBC WITH AUTO DIFFERENTIAL Routine 12/11/2023 10:15 PM CDT POCT GLUCOSE DEVICE Routine 12/11/2023 9 :48 PM CDT POCT GLUCOSE DEVICE Routine 12/11/2023 4 :59 PM CDT POCT GLUCOSE DEVICE Routine 12/11/2023 11:48 AM CDT POCT GLUCOSE DEVICE Routine 12/11/2023 8 :31 AM CDT HEMOGLOBIN AND HEMATOCRIT STAT 12/11/2023 3:14 AM CDT EGFR Routine 12/11/2023 12:10 AM CDT DIFFERENTIAL AUTO Routine 12/11/2023 12:10 AM CDT MAGNESIUM Routine 12/11/2023 12:10 AM CDT TYPE AND SCREEN Timed 12/11/2023 12:10 AM CDT RENAL FUNCTION PANEL Routine 12/11/2023 12:10 AM CDT CBC WITH AUTO DIFFERENTIAL Routine 12/11/2023 12:10 AM CDT POCT GLUCOSE DEVICE Routine 12/10/2023 8 :55 PM CDT POCT GLUCOSE DEVICE Routine 12/10/2023 5 :23 PM CDT POCT GLUCOSE DEVICE Routine 12/10/2023 11:28 AM CDT POCT GLUCOSE DEVICE Routine 12/10/2023 8 :32 AM CDT EGFR Routine 12/09/2023 11:02 PM CDT DIFFERENTIAL AUTO Routine 12/09/2023 11:02 PM CDT RENAL FUNCTION PANEL Routine 12/09/2023 11:02 PM CDT CBC WITH AUTO DIFFERENTIAL Routine 12/09/2023 11:02 PM CDT POCT GLUCOSE DEVICE Routine 12/09/2023 8 :21 PM CDT POCT GLUCOSE DEVICE Routine 12/09/2023 5 :01 PM CDT URINALYSIS AND REFLEX TO MICROSCOPIC AND CULTURE Routine 12/09/2023 4:51 PM CDT LACTATE Routine 12/09/2023 3:21 PM CDT MAGNESIUM STAT 12/09/2023 12:27 PM CDT EGFR STAT 12/09/2023 12:27 PM CDT BASIC METABOLIC PANEL STAT 12/09/2023 12:27 PM CDT CBC WITHOUT DIFFERENTIAL STAT 12/09/2023 12:27 PM CDT BLOOD CULTURE Routine 12/09/2023 12:27 PM CDT BLOOD CULTURE Routine 12/09/2023 12:27 PM CDT POCT LACTATE - DEVICE Routine 12/09/2023 12:20 PM CDT POCT GLUCOSE DEVICE Routine 12/09/2023 12:02 PM CDT POCT GLUCOSE DEVICE Routine 12/09/2023 8 :12 AM CDT MAGNESIUM Routine 12/08/2023 8:30 PM CDT EGFR Routine 12/08/2023 8:30 PM CDT DIFFERENTIAL AUTO Routine 12/08/2023 8:3 0 PM CDT RENAL FUNCTION PANEL Routine 12/08/2023 8:30 PM CDT CBC WITH AUTO DIFFERENTIAL Routine 12/08/2023 8:30 PM CDT POCT GLUCOSE DEVICE Routine 12/08/2023 8 :08 PM CDT POCT GLUCOSE DEVICE Routine 12/08/2023 5 :56 PM CDT POCT GLUCOSE DEVICE Routine 12/08/2023 4 :34 PM CDT POCT GLUCOSE DEVICE Routine 12/08/2023 12:27 PM CDT POCT GLUCOSE DEVICE Routine 12/08/2023 11:27 AM CDT XR ABDOMEN AP 1 VIEW ED Urgent/IP Urgent 12/08/2023 10:58 AM CDT POCT GLUCOSE DEVICE Routine 12/08/2023 8 :08 AM CDT POCT GLUCOSE DEVICE Routine 12/07/2023 9 :36 PM CDT MAGNESIUM Routine 12/07/2023 9:16 PM CDT EGFR Routine 12/07/2023 9:16 PM CDT DIFFERENTIAL AUTO Routine 12/07/2023 9:1 6 PM CDT TYPE AND SCREEN Timed 12/07/2023 9:16 PM CDT RENAL FUNCTION PANEL Routine 12/07/2023 9:16 PM CDT CBC WITH AUTO DIFFERENTIAL Routine 12/07/2023 9:16 PM CDT INFECTION PREVENTION ANGIE AURIS PCR, SURVEILLANCE Routine 12/07/2023 9:16 PM CDT POCT GLUCOSE DEVICE Routine 12/07/2023 5 :14 PM CDT POCT GLUCOSE DEVICE Routine 12/07/2023 11:36 AM CDT POCT GLUCOSE DEVICE Routine 12/07/2023 8 :41 AM CDT MAGNESIUM Routine 12/06/2023 9:47 PM CDT EGFR Routine 12/06/2023 9:47 PM CDT DIFFERENTIAL AUTO Routine 12/06/2023 9:4 7 PM CDT RENAL FUNCTION PANEL Routine 12/06/2023 9:47 PM CDT CBC WITH AUTO DIFFERENTIAL Routine 12/06/2023 9:47 PM CDT POCT GLUCOSE DEVICE Routine 12/06/2023 8 :07 PM CDT POCT GLUCOSE DEVICE Routine 12/06/2023 4 :57 PM CDT POCT GLUCOSE DEVICE Routine 12/06/2023 11:45 AM CDT POCT GLUCOSE DEVICE Routine 12/06/2023 7 :59 AM CDT VANCOMYCIN LEVEL TROUGH Timed 12/06/2023 4:31 AM CDT MAGNESIUM Routine 12/05/2023 9:24 PM CDT EGFR Routine 12/05/2023 9:24 PM CDT DIFFERENTIAL AUTO Routine 12/05/2023 9:2 4 PM CDT ANCA VASCULITIS PANEL Timed 12/05/2023 9:24 PM CDT RENAL FUNCTION PANEL Routine 12/05/2023 9:24 PM CDT CBC WITH AUTO DIFFERENTIAL Routine 12/05/2023 9:24 PM CDT POCT GLUCOSE DEVICE Routine 12/05/2023 8 :16 PM CDT POCT GLUCOSE DEVICE Routine 12/05/2023 4 :45 PM CDT POCT GLUCOSE DEVICE Routine 12/05/2023 11:44 AM CDT DIFFERENTIAL AUTO Timed 12/05/2023 11:09 AM CDT CBC WITH AUTO DIFFERENTIAL Timed 12/05/2023 11:09 AM CDT TROPONIN I HIGH-SENSITIVITY 2-HOUR Timed 12/05/2023 11:09 AM CDT TROPONIN I HIGH-SENSITIVITY SERIES (BASELINE, 2HR, 4HR, 6HR) Routine 12/05/2023 8:56 AM CDT POCT GLUCOSE DEVICE Routine 12/05/2023 8 :02 AM CDT EGFR STAT 12/04/2023 10:19 PM CDT MAGNESIUM STAT 12/04/2023 10:19 PM CDT BASIC METABOLIC PANEL STAT 12/04/2023 10:19 PM CDT TYPE AND SCREEN Timed 12/04/2023 10:19 PM CDT TROPONIN I HIGH-SENSITIVITY 6-HOUR Timed 12/04/2023 10:19 PM CDT DIFFERENTIAL AUTO Routine 12/04/2023 8:3 0 PM CDT CBC WITH AUTO DIFFERENTIAL Routine 12/04/2023 8:30 PM CDT TROPONIN I HIGH-SENSITIVITY 4-HOUR Timed 12/04/2023 8:14 PM CDT POCT GLUCOSE DEVICE Routine 12/04/2023 7 :55 PM CDT CRITICAL RESULT CALLBACK CARDIO CHEM Timed 12/04/2023 5:58 PM CDT EGFR Timed 12/04/2023 5:58 PM CDT DIFFERENTIAL AUTO STAT 12/04/2023 5:5 8 PM CDT LACTATE STAT 12/04/2023 5:58 PM CDT CBC WITH AUTO DIFFERENTIAL STAT 12/04/2023 5:58 PM CDT TROPONIN I HIGH-SENSITIVITY 2-HOUR Timed 12/04/2023 5:58 PM CDT RENAL FUNCTION PANEL Timed 12/04/2023 5:58 PM CDT BLOOD CULTURE STAT 12/04/2023 5:25 PM CDT LIPID PANEL STAT 12/04/2023 5:24 PM CDT EGFR STAT 12/04/2023 5:24 PM CDT MAGNESIUM STAT 12/04/2023 5:24 PM CDT COMPREHENSIVE METABOLIC PANEL STAT 12/04/2023 5:24 PM CDT POCT LACTATE - DEVICE Routine 12/04/2023 5:19 PM CDT XR CHEST 1 VIEW Critical/Life- Threatening 12/04/2023 4:55 PM CDT XR ABDOMEN AP 1 VIEW Critical/Life- Threatening 12/04/2023 4:55 PM CDT DIFFERENTIAL AUTO STAT 12/04/2023 4:0 2 PM CDT CBC WITH AUTO DIFFERENTIAL STAT 12/04/2023 4:02 PM CDT TROPONIN I HIGH-SENSITIVITY SERIES (BASELINE, 2HR, 4HR, 6HR) STAT 12/04/2023 4:02 PM CDT LIPASE STAT 12/04/2023 4:01 PM CDT EGFR STAT 12/04/2023 4:01 PM CDT BLOOD GAS, VENOUS STAT 12/04/2023 4:0 1 PM CDT COMPREHENSIVE METABOLIC PANEL STAT 12/04/2023 4:01 PM CDT BLOOD CULTURE STAT 12/04/2023 4:01 PM CDT POCT GLUCOSE DEVICE Routine 12/04/2023 3 :30 PM CDT POCT GLUCOSE DEVICE Routine 12/04/2023 11:36 AM CDT PET/CT FDG SKULL TO THIGH ED Urgent/IP Urgent 12/04/2023 10:22 AM CDT POCT GLUCOSE DEVICE Routine 12/04/2023 4 :02 AM CDT DIFFERENTIAL AUTO Routine 12/04/2023 12:19 AM CDT CBC WITH AUTO DIFFERENTIAL Routine 12/04/2023 12:19 AM CDT POCT GLUCOSE DEVICE Routine 12/03/2023 8 :52 PM CDT POCT GLUCOSE DEVICE Routine 12/03/2023 4 :55 PM CDT POCT GLUCOSE DEVICE Routine 12/03/2023 11:28 AM CDT POCT GLUCOSE DEVICE Routine 12/03/2023 8 :48 AM CDT EGFR Routine 12/03/2023 12:09 AM CDT DIFFERENTIAL AUTO Routine 12/03/2023 12:09 AM CDT FOLATE Routine 12/03/2023 12:09 AM CDT VITAMIN B12 Routine 12/03/2023 12:09 AM CDT RENAL FUNCTION PANEL Routine 12/03/2023 12:09 AM CDT CBC WITH AUTO DIFFERENTIAL Routine 12/03/2023 12:09 AM CDT POCT GLUCOSE DEVICE Routine 12/02/2023 8 :47 PM CDT POCT GLUCOSE DEVICE Routine 12/02/2023 4 :47 PM CDT POCT GLUCOSE DEVICE Routine 12/02/2023 1 :15 PM CDT POCT GLUCOSE DEVICE Routine 12/02/2023 12:07 PM CDT BLOOD MISC TO ODEM Routine 12/02/2023 9: 42 AM CDT POCT GLUCOSE DEVICE Routine 12/02/2023 8 :19 AM CDT EGFR Routine 12/01/2023 9:46 PM CDT DIFFERENTIAL AUTO Routine 12/01/2023 9:4 6 PM CDT RENAL FUNCTION PANEL Routine 12/01/2023 9:46 PM CDT CBC WITH AUTO DIFFERENTIAL Routine 12/01/2023 9:46 PM CDT POCT GLUCOSE DEVICE Routine 12/01/2023 8 :26 PM CDT POCT GLUCOSE DEVICE Routine 12/01/2023 4 :04 PM CDT POCT GLUCOSE DEVICE Routine 12/01/2023 12:02 PM CDT POCT GLUCOSE DEVICE Routine 12/01/2023 8 :27 AM CDT HEPATIC FUNCTION PANEL Routine 10:55 PM CDT THYROID FUNCTION CASCADE Routine 11/30/2023 10:55 PM CDT VITAMIN D 25 HYDROXY Routine 11/30/2023 10:55 PM CDT EGFR Routine 11/30/2023 10:55 PM CDT DIFFERENTIAL AUTO Routine 11/30/2023 10:55 PM CDT PHOSPHORUS Routine 11/30/2023 10:55 PM CDT MAGNESIUM Routine 11/30/2023 10:55 PM CDT CBC WITH AUTO DIFFERENTIAL Routine 11/30/2023 10:55 PM CDT BASIC METABOLIC PANEL Routine 11/30/2023 10:55 PM CDT POCT GLUCOSE DEVICE Routine 11/30/2023 9 :11 PM CDT POCT GLUCOSE DEVICE Routine 11/30/2023 5 :26 PM CDT INFECTION PREVENTION ANGIE AURIS PCR, SURVEILLANCE Routine 11/30/2023 2:27 PM CDT POCT GLUCOSE DEVICE Routine 11/30/2023 11:53 AM CDT POCT GLUCOSE DEVICE Routine 11/30/2023 9 :06 AM CDT CALCIUM, IONIZED STAT 11/30/2023 8:15 AM CDT CORTISOL STAT 11/30/2023 8:15 AM CDT POCT GLUCOSE DEVICE Routine 11/29/2023 9 :07 PM CDT EGFR Routine 11/29/2023 8:51 PM CDT DIFFERENTIAL AUTO Routine 11/29/2023 8:5 1 PM CDT PHOSPHORUS Routine 11/29/2023 8:51 PM CDT MAGNESIUM Routine 11/29/2023 8:51 PM CDT CBC WITH AUTO DIFFERENTIAL Routine 11/29/2023 8:51 PM CDT BASIC METABOLIC PANEL Routine 11/29/2023 8:51 PM CDT POCT GLUCOSE DEVICE Routine 11/29/2023 4 :20 PM CDT POCT GLUCOSE DEVICE Routine 11/29/2023 8 :28 AM CDT MOLD BLOOD CULTURE Timed 11/29/2023 12:58 AM CDT EGFR Routine 11/29/2023 12:46 AM CDT DIFFERENTIAL AUTO Routine 11/29/2023 12:46 AM CDT PHOSPHORUS Routine 11/29/2023 12:46 AM CDT MAGNESIUM Routine 11/29/2023 12:46 AM CDT CBC WITH AUTO DIFFERENTIAL Routine 11/29/2023 12:46 AM CDT BASIC METABOLIC PANEL Routine 11/29/2023 12:46 AM CDT POCT GLUCOSE DEVICE Routine 11/28/2023 8 :35 PM CDT POCT GLUCOSE DEVICE Routine 11/28/2023 4 :45 PM CDT CALCIUM, IONIZED STAT 11/28/2023 4:13 PM CDT LEUKOCYTES, FECAL Routine 11/28/2023 4:1 3 PM CDT CALPROTECTIN, FECAL Routine 11/28/2023 4 :13 PM CDT HISTOPLASMA ANTIGEN Timed 11/28/2023 3 :00 PM CDT XR CHEST 1 VIEW IP Routine 11/28/2023 12:47 PM CDT POCT GLUCOSE DEVICE Routine 11/28/2023 11:50 AM CDT CELL DIFFERENTIAL, BODY FLUID Routine 11/28/2023 11:02 AM CDT CELL COUNT W/REFLEX DIFFERENTIAL, BODY FLUID Routine 11/28/2023 11:02 AM CDT PNEUMONIA PCR Routine 11/28/2023 11:02 AM CDT PNEUMONIA PCR WITH AEROBIC CULTURE AND GRAM STAIN Routine 11/28/2023 11:02 AM CDT CYTOMEGALOVIRUS (CMV) PCR QUALITATIVE Routine 11/28/2023 11:02 AM CDT AEROBIC CULTURE AND GRAM STAIN Routine 11/28/2023 11:02 AM CDT PNEUMOCYSTIS DFA Routine 11/28/2023 11:02 AM CDT MYCOLOGY (FUNGAL) CULTURE Routine 11/28/2023 11:02 AM CDT MYCOBACTERIOLOGY AFB CULTURE AND ACID-FAST STAIN Routine 11/28/2023 11:02 AM CDT PNEUMOCYSTIS DFA Routine 11/28/2023 11:02 AM CDT MYCOLOGY (FUNGAL) CULTURE Routine 11/28/2023 11:02 AM CDT MYCOBACTERIOLOGY AFB CULTURE AND ACID-FAST STAIN Routine 11/28/2023 11:02 AM CDT LEGIONELLA CULTURE Routine 11/28/2023 11:02 AM CDT ADENOVIRUS PCR QUALITATIVE Routine 11/28/2023 11:02 AM CDT CYTOLOGY Routine 11/28/2023 10:48 AM CDT SURGICAL PATHOLOGY Routine 11/28/2023 10:48 AM CDT BRONCHOSCOPY Routine 11/28/2023 9:47 AM CDT POCT GLUCOSE DEVICE Routine 11/28/2023 8 :15 AM CDT EGFR Routine 11/28/2023 1:10 AM CDT DIFFERENTIAL AUTO Routine 11/28/2023 1:1 0 AM CDT APTT Routine 11/28/2023 1:10 AM CDT PROTIME-INR Routine 11/28/2023 1:10 AM CDT TYPE AND SCREEN STAT 11/28/2023 1:10 AM CDT OSMOLALITY, BLOOD Timed 11/28/2023 1:1 0 AM CDT ERYTHROCYTE SEDIMENTATION RATE Timed 11/28/2023 1:10 AM CDT CRP (ACUTE PHASE) Timed 11/28/2023 1:1 0 AM CDT PHOSPHORUS Routine 11/28/2023 1:10 AM CDT MAGNESIUM Routine 11/28/2023 1:10 AM CDT CBC WITH AUTO DIFFERENTIAL Routine 11/28/2023 1:10 AM CDT BASIC METABOLIC PANEL Routine 11/28/2023 1:10 AM CDT ASPERGILLUS GALACTOMANNAN ANTIGEN STAT 11/28/2023 1:10 AM CDT OSMOLALITY, URINE Timed 11/27/2023 9:0 0 PM CDT CHLORIDE, URINE, RANDOM Timed 11/27/2023 9:00 PM CDT POTASSIUM, URINE, RANDOM Timed 11/27/2023 9:00 PM CDT SODIUM, URINE, RANDOM Timed 11/27/2023 9:00 PM CDT POCT GLUCOSE DEVICE Routine 11/27/2023 7 :46 PM CDT POCT GLUCOSE DEVICE Routine 11/27/2023 5 :35 PM CDT POCT GLUCOSE DEVICE Routine 11/27/2023 11:45 AM CDT POCT GLUCOSE DEVICE Routine 11/27/2023 7 :54 AM CDT BLASTOMYCES ANTIBODY, EIA, S Routine 11/27/2023 12:54 AM CDT HIV 1/2 ANTIBODY PLUS P24 ANTIGEN Routine 11/27/2023 12:53 AM CDT CRYPTOCOCCAL ANTIGEN, SERUM Routine 11/27/2023 12:53 AM CDT HISTOPLASMA ANTIBODY Routine 11/27/2023 12:53 AM CDT MYCOBACTERIOLOGY AFB BLOOD CULTURE STAT 11/27/2023 12:53 AM CDT MYCOBACTERIOLOGY AFB BLOOD CULTURE STAT 11/27/2023 12:53 AM CDT BLOOD CULTURE STAT 11/27/2023 12:53 AM CDT BLOOD CULTURE STAT 11/27/2023 12:53 AM CDT POCT GLUCOSE DEVICE Routine 11/26/2023 10:20 PM CDT EGFR Routine 11/26/2023 9:58 PM CDT DIFFERENTIAL AUTO Routine 11/26/2023 9:5 8 PM CDT PHOSPHORUS Routine 11/26/2023 9:58 PM CDT MAGNESIUM Routine 11/26/2023 9:58 PM CDT CBC WITH AUTO DIFFERENTIAL Routine 11/26/2023 9:58 PM CDT BASIC METABOLIC PANEL Routine 11/26/2023 9:58 PM CDT POCT GLUCOSE DEVICE Routine 11/26/2023 5 :[address] CHEST ABDOMEN PELVIS W CONTRAST IP Routine 11/26/2023 2:10 PM CDT POCT GLUCOSE DEVICE Routine 11/26/2023 11:49 AM CDT POCT GLUCOSE DEVICE Routine 11/26/2023 9 :06 AM CDT INFECTION PREVENTION VRE CULTURE Routine 11/26/2023 1:10 AM CDT C. DIFFICILE TESTING Routine 11/26/2023 1:10 AM CDT EGFR STAT 11/25/2023 10:52 PM CDT TYPE AND SCREEN Timed 11/25/2023 10:52 PM CDT PROTIME-INR STAT 11/25/2023 10:52 PM CDT APTT STAT 11/25/2023 10:52 PM CDT PHOSPHORUS STAT 11/25/2023 10:52 PM CDT MAGNESIUM STAT 11/25/2023 10:52 PM CDT CBC WITHOUT DIFFERENTIAL STAT 11/25/2023 10:52 PM CDT BASIC METABOLIC PANEL STAT 11/25/2023 10:52 PM CDT POCT GLUCOSE DEVICE Routine 11/25/2023 9 :45 PM CDT RESPIRATORY PATHOGEN PANEL Routine 11/25/2023 9:40 PM CDT SCAN - RADIOLOGY/IMAGING 11/25/2023 SCAN - LABS 11/24/2023 SCAN - LABS 11/14/2023 MRI ABDOMEN/PELVIS ENTEROGRAPHY W WO CONTRAST Schedule Routine, Read Routine (OP Routine) 11/13/2023 6:53 PM CDT Abdominal pain SURGICAL PATHOLOGY Routine 11/13/2023 12:42 PM CDT History of chronic ulcerative colitis COLONOSCOPY 11/13/2023 12:20 PM CDT COLON BIOPSY 11/13/2023 12:13 PM CDT History of chronic ulcerative colitis POCT GLUCOSE DEVICE Routine 11/13/2023 11:59 AM CDT HEMOGLOBIN A1C STAT 11/04/2023 7:56 AM CDT HEPATITIS C ANTIBODY Routine 10/27/2023 9:30 AM CDT History of chronic ulcerative colitis High risk medications (not anticoagulants) long-term use from Last 3 Months or Most Recently Relevant to Health Maintenance Results * POCT glucose (12/30/2023 12:34 PM BAG LOADER MACHINE OPERATOR) Glucose, POC 182 70 - 199 mg/dL Blood 12/30/2023 12:3 4 PM BAG LOADER MACHINE OPERATOR 12/30/2023 12:34 PM BAG LOADER MACHINE OPERATOR us Yo Ferreira MD LAB POCT ORDERABLES - DEVICE Final Result Performing Organization Address City/[facility]/ZIP Co de Phone Number [facility] [place] [employer] [place] [address] * POCT glucose (12/30/2023 8:18 AM BAG LOADER MACHINE OPERATOR) Glucose, POC 109 70 - 199 mg/dL Blood 12/30/2023 8:18 AM BAG LOADER MACHINE OPERATOR 12/30/2023 8:18 AM BAG LOADER MACHINE OPERATOR Yo Ferreira MD LAB POCT ORDERABLES - DEVICE Final Result Performing Organization Address [facility] Co de Phone Number [facility] [place] [address] * POCT glucose (12/29/2023 8:02 PM BAG LOADER MACHINE OPERATOR) Glucose, POC 142 70 - 199 mg/dL Blood 12/29/2023 8:02 PM BAG LOADER MACHINE OPERATOR 12/29/2023 8:02 PM BAG LOADER MACHINE OPERATOR us Yo Ferreira MD LAB POCT ORDERABLES - DEVICE Final Result Performing Organization Address City/[facility] Co de Phone Number [facility] [place] [address] * POCT glucose (12/29/2023 5:35 PM BAG LOADER MACHINE OPERATOR) Glucose, POC 166 70 - 199 mg/dL Blood 12/29/2023 5:35 PM BAG LOADER MACHINE OPERATOR 12/29/2023 5:35 PM BAG LOADER MACHINE OPERATOR Yo Ferreira MD LAB POCT ORDERABLES - DEVICE Final Result Performing Organization Address City/[facility] Co de Phone Number [facility] [place] [address] * POCT glucose (12/29/2023 11:55 AM BAG LOADER MACHINE OPERATOR) Glucose, POC 130 70 - 199 mg/dL Blood 12/29/2023 11:5 5 AM BAG LOADER MACHINE OPERATOR 12/29/2023 11:55 AM BAG LOADER MACHINE OPERATOR Yo Ferreira MD LAB POCT ORDERABLES - DEVICE Final Result Performing Organization Address [facility] de Phone Number [facility] [place] [employer] [place] [address] * POCT glucose (12/29/2023 7:57 AM BAG LOADER MACHINE OPERATOR) Glucose, POC 122 70 - 199 mg/dL Blood 12/29/2023 7:57 AM BAG LOADER MACHINE OPERATOR 12/29/2023 7:57 AM BAG LOADER MACHINE OPERATOR Yo Ferreira MD LAB POCT ORDERABLES - DEVICE Final Result Performing Organization Address [facility] de Phone Number [facility] [place] [place] [address] * eGFR (12/28/2023 10:18 PM BAG LOADER MACHINE OPERATOR) eGFR 83 >=60 mL/min/1. 73 m2 Comment: Interpretive Data Reference Interval Normal ?>/= 90 mL/min/1.73m2 Mildly decreased* ? 60 - 89 mL/min/1.73m2 Mildly to moderately decreased ?45 - 59 mL/min/1.73m2 Moderately to severely decreased ??30 - 44 mL/min/1.73m2 Severely decreased ?15 - 29 mL/min/1.73m2 Kidney Failure ?< 15 ??mL/min/1.73m2 *Relative to young adult level Estimated glomerular filtration rate is determined by the 2020 CKD-EPI equation recommended by the National Kid[employer] (A Unifying Approach to GFR Estimation: Recommendations of the NKF-ASK Task Force on Reassessing the Inclusion of Race in Diagnosing Kidney Disease, JASN 2020). The CKD-EPI equation should not be used for patients with unstable renal function and has not been validated in children and those over 70. Current interpretive data was last reviewed 2020. Blood 12/28/2023 10:1 8 PM BAG LOADER MACHINE OPERATOR 12/28/2023 11:12 PM BAG LOADER MACHINE OPERATOR us Yo Ferreira MD LAB BLOOD ORDERABLES Final R esult [facility] [place] [address] * (ABNORMAL) CBC without differential (12/28/2023 10:18 PM BAG LOADER MACHINE OPERATOR) WBC 10.9(H) 3.8 - 9.9 K/cumm Hgb 9.3(L) 11.9 - 15.5 g/dL [facility] Hct 29.5(L) 35.6 - 45.5 % [facility] Plt 384 150 - 400 K/cumm [facility] MPV 8.9(L) 9.1 - 12.3 fL [facility] RBC 3.42(L) 3.90 - 5.20 M/cumm [facility] MCV 86.3 81.3 - 96.4 fL [facility] MCH 27.2 27.1 - 33.3 pg [facility] MCHC 31.5(L) 32.3 - 35.7 g/dL [facility] RDW CV 17.2(H) 11.1 - 14.9 % [facility] RDW SD 54.6(H) 35.7 - 48.1 fL [facility] NRBC abs 0.00 0.00 - 0.01 K/cumm [facility] Blood 12/28/2023 10:1 8 PM BAG LOADER MACHINE OPERATOR 12/28/2023 11:11 PM BAG LOADER MACHINE OPERATOR Yo Ferreira MD LAB BLOOD ORDERABLES Final R esult [facility] [place] [address] * (ABNORMAL) Basic metabolic panel (12/28/2023 10:18 PM BAG LOADER MACHINE OPERATOR) [facility] Sodium 138 135 - 145 mmol/L Potassium, pl 4.4 3.3 - 4.9 mmol/L [facility] Chloride 104 97 - 110 mmol/L [facility] CO2 26 22 - 32 mmol/L [facility] Anion gap 8 2 - 15 mmol/L [facility] BUN 20 6 - 25 mg/dL [facility] Creatinine 0.79 0.60 - 1.10 mg/dL [facility] Glucose 135 70 - 199 mg/dL [facility] Comment: Interpretive Data Fasting glucose >/= 126 mg/dl is diagnostic for diabetes. ?? Fasting is defined as no caloric intake for at least 8 hours. Fasting glucose between 100 mg/dl to 125 mg/dl is diagnostic of prediabetes. In a patient with classic symptoms of hyperglycemia or hyperglycemic crisis, a random glucose >/= 200 mg/dl is diagnostic for diabetes. In the absence of unequivocal hyperglycemia, results should be confirmed by repeat testing. The classification and Diagnosis of Diabetes Diabetes Care 2021; 46: S19-S40. Current interpretive data was last revised 2022. Calcium 8.1(L) 8.5 - 10.3 mg/dL [facility] Blood 12/28/2023 10:1 8 PM BAG LOADER MACHINE OPERATOR 12/28/2023 11:12 PM BAG LOADER MACHINE OPERATOR Yo Ferreira MD LAB BLOOD ORDERABLES Final R esult Performing Organization Address [facility]/ZIP Co de Phone Number [facility] [place] [address] * POCT glucose (12/28/2023 9:13 PM BAG LOADER MACHINE OPERATOR) Glucose, POC 160 70 - 199 mg/dL Blood 12/28/2023 9:13 PM BAG LOADER MACHINE OPERATOR 12/28/2023 9:13 PM BAG LOADER MACHINE OPERATOR us Yo Ferreira MD LAB POCT ORDERABLES - DEVICE Final Result Performing Organization Address [facility] de Phone Number [facility] [place] [employer] [address] * POCT glucose (12/28/2023 4:21 PM BAG LOADER MACHINE OPERATOR) Glucose, POC 125 70 - 199 mg/dL Blood 12/28/2023 4:21 PM BAG LOADER MACHINE OPERATOR 12/28/2023 4:21 PM BAG LOADER MACHINE OPERATOR us Yo Ferreira MD LAB POCT ORDERABLES - DEVICE Final Result Performing Organization Address [facility] de Phone Number [facility] [place] [address] * POCT glucose (12/28/2023 12:39 PM BAG LOADER MACHINE OPERATOR) Glucose, POC 165 70 - 199 mg/dL Blood 12/28/2023 12:3 9 PM BAG LOADER MACHINE OPERATOR 12/28/2023 12:39 PM BAG LOADER MACHINE OPERATOR us Yo Ferreira MD LAB POCT ORDERABLES - DEVICE Final Result Performing Organization Address [facility] de Phone Number [facility] [place] [employer] [address] * POCT glucose (12/28/2023 7:33 AM BAG LOADER MACHINE OPERATOR) Glucose, POC 101 70 - 199 mg/dL Blood 12/28/2023 7:33 AM BAG LOADER MACHINE OPERATOR 12/28/2023 7:33 AM BAG LOADER MACHINE OPERATOR us Yo Ferreira MD LAB POCT ORDERABLES - DEVICE Final Result Performing Organization Address City/[facility] Co de Phone Number GO ROBERT [facility] [place] [employer] [place] [address] * POCT glucose (12/27/2023 8:57 PM BAG LOADER MACHINE OPERATOR) Pathologist [facility] Glucose, POC 113 70 - 199 mg/dL Blood 12/27/2023 8:57 PM BAG LOADER MACHINE OPERATOR 12/27/2023 8:57 PM BAG LOADER MACHINE OPERATOR Yo Ferreira MD LAB POCT ORDERABLES - DEVICE Final Result Performing Organization Address [facility] de Phone Number GO ROBERT [facility] Department [place] [employer] [place] [address] * eGFR (12/27/2023 8:56 PM BAG LOADER MACHINE OPERATOR) [facility] eGFR 71 >=60 mL/min/1. 73 m2 Comment: Interpretive Data Reference Interval Normal ?>/= 90 mL/min/1.73m2 Mildly decreased* ? 60 - 89 mL/min/1.73m2 Mildly to moderately decreased ?45 - 59 mL/min/1.73m2 Moderately to severely decreased ??30 - 44 mL/min/1.73m2 Severely decreased ?15 - 29 mL/min/1.73m2 Kidney Failure ?< 15 ??mL/min/1.73m2 *Relative to young adult level Estimated glomerular filtration rate is determined by the 2020 CKD-EPI equation recommended by the National Kidney Foundation (A Unifying Approach to GFR Estimation: Recommendations of the NKF-ASK Task Force on Reassessing the Inclusion of Race in Diagnosing Kidney Disease, JASN 2020). The CKD-EPI equation should not be used for patients with unstable renal function and has not been validated in children and those over 70. Current interpretive data was last reviewed 2020. Blood 12/27/2023 8:56 PM BAG LOADER MACHINE OPERATOR 12/27/2023 9:53 PM BAG LOADER MACHINE OPERATOR Yo Ferreira MD LAB BLOOD ORDERABLES Final R esult Performing Organization Address City/[facility]/ZIP Co de Phone Number [facility] Department [place] [employer] [place] [address] * (ABNORMAL) CBC without differential (12/27/2023 8:56 PM BAG LOADER MACHINE OPERATOR) WBC 10.9(H) 3.8 - 9.9 K/cumm Hgb 8.5(L) 11.9 - 15.5 g/dL [facility] Hct 27.6(L) 35.6 - 45.5 % [facility] Plt 364 150 - 400 K/cumm [facility] MPV 9.2 9.1 - 12.3 fL [facility] RBC 3.15(L) 3.90 - 5.20 M/cumm [facility] MCV 87.6 81.3 - 96.4 fL [facility] MCH 27.0(L) 27.1 - 33.3 pg [facility] MCHC 30.8(L) 32.3 - 35.7 g/dL [facility] RDW CV 17.5(H) 11.1 - 14.9 % [facility] RDW SD 55.9(H) 35.7 - 48.1 fL [facility] NRBC abs 0.00 0.00 - 0.01 K/cumm [facility] Blood 12/27/2023 8:56 PM BAG LOADER MACHINE OPERATOR 12/27/2023 9:53 PM BAG LOADER MACHINE OPERATOR Yo Ferreira MD LAB BLOOD ORDERABLES Final R esult [facility] [place] [address] * (ABNORMAL) Basic metabolic panel (12/27/2023 8:56 PM BAG LOADER MACHINE OPERATOR) Sodium 137 135 - 145 mmol/L Potassium, pl 4.0 3.3 - 4.9 mmol/L [facility] Chloride 104 97 - 110 mmol/L [facility] CO2 27 22 - 32 mmol/L [facility] Anion gap 6 2 - 15 mmol/L [facility] BUN 22 6 - 25 mg/dL [facility] Creatinine 0.90 0.60 - 1.10 mg/dL [facility] Glucose 98 70 - 199 mg/dL [facility] Comment: Interpretive Data Fasting glucose >/= 126 mg/dl is diagnostic for diabetes. ?? Fasting is defined as no caloric intake for at least 8 hours. Fasting glucose between 100 mg/dl to 125 mg/dl is diagnostic of prediabetes. In a patient with classic symptoms of hyperglycemia or hyperglycemic crisis, a random glucose >/= 200 mg/dl is diagnostic for diabetes. In the absence of unequivocal hyperglycemia, results should be confirmed by repeat testing. The classification and Diagnosis of Diabetes Diabetes Care 2021; 46: S19-S40. Current interpretive data was last revised 2022. Calcium 8.0(L) 8.5 - 10.3 mg/dL [facility] Blood 12/27/2023 8:56 PM BAG LOADER MACHINE OPERATOR 12/27/2023 9:53 PM BAG LOADER MACHINE OPERATOR oY Ferreira MD LAB BLOOD ORDERABLES Final R esult Performing Organization Address City/[facility]/ZIP Co de Phone Number [facility] Department [place] [address] * POCT glucose (12/27/2023 6:29 PM BAG LOADER MACHINE OPERATOR) Glucose, POC 196 70 - 199 mg/dL Blood 12/27/2023 6:29 PM BAG LOADER MACHINE OPERATOR 12/27/2023 6:29 PM BAG LOADER MACHINE OPERATOR Yo Ferreira MD LAB POCT ORDERABLES - DEVICE Final Result Performing Organization Address [facility]/State/ZIP Co de Phone Number [facility] Abdullah[facility] Department [place] [address] * POCT glucose (12/27/2023 12:36 PM BAG LOADER MACHINE OPERATOR) Glucose, POC 164 70 - 199 mg/dL Blood 12/27/2023 12:3 6 PM BAG LOADER MACHINE OPERATOR 12/27/2023 12:36 PM BAG LOADER MACHINE OPERATOR us Yo Ferreira MD LAB POCT ORDERABLES - DEVICE Final Result GO [facility] Department [place] [address] * CT Abdomen Pelvis W Contrast (12/27/2023 11:33 AM BAG LOADER MACHINE OPERATOR) Anatomical Region Laterality Modality Body N/A Computed Tomogra phy 12/27/2023 12:1 1 PM BAG LOADER MACHINE OPERATOR Impressions 12/27/2023 12:11 PM BAG LOADER MACHINE OPERATOR 1. 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 2. ??Small ascites, mesenteric edema and hyperenhancement and thickening of the peritoneal lining on the left which could represent peritonitis which could be infectious or postoperative changes. ?? 3. ??Improving multiple hepatic and splenic abscesses. 4. ??Moderate left and small right pleural effusion. 5. ??Diffuse body wall edema. Electronically signed by: Jayro Wheeler M.D. Narrative 12/27/2023 12:11 PM BAG LOADER MACHINE OPERATOR EXAMINATION: ??Computed tomography of the abdomen and pelvis with intravenous contrast HISTORY: 63-year-old female, status post ex-lap, LIBRA, BSO, preop stents, left colectomy for persistent colitis with colonic microperforation and abscesses and a 15cm complex pelvic mass. Frozen: Mucinous cystadenoma TECHNIQUE: ??Transaxial computed tomographic images of the abdomen and pelvis were obtained with intravenous contrast according to the standard protocol after the uneventful administration of 67 mL Opti-Ray 350 intravenous contrast. COMPARISON: PET/CT on 12/04/[address] chest, abdomen and pelvis on 11/26/2023 FINDINGS: Moderate left pleural effusion has a slightly decreased compared to the prior exam with adjacent compressive atelectasis. ??A trace right pleural effusion is slightly increased compared to the prior study with adjacent compressive atelectasis. ??Atherosclerotic calcifications of the coronary arteries are noted. Hypoattenuating lesion within the left hemiliver is no longer visible on current examination. ??Hypoattenuating lesion within the bladder dome is unchanged in size measuring 2 cm. ??Previously seen adjacent hypoattenuating lesion in hepatic dome posterior to the formation collection is not well visualized consistent with improving abscess. Status post cholecystectomy. ??There is no intra or extrahepatic biliary dilatation. ??Multiple splenic hypodensity lesions are mostly resolved with residual of a small 6 mm nodule in the medial aspect of the spleen (series 3 image 54). ??Both adrenal glands are unremarkable. ??There is no hydronephrosis or nephrolithiasis. Bladder is decompressed with a Saba catheter. The patient is status post hysterectomy and left colectomy with ileostomy in the mid abdomen. ??There is also status post resection of the large mucinous cystadenoma. ??There is no evidence of bowel obstruction. ??There is diffuse mesenteric edema with a small volume of ascites with hyperenhancement of the peritoneal lining on the left. ??Scattered free air is seen throughout the abdomen and pelvis which could be postoperative. ??There is mild thickening of the small bowel loops which could be reactive. Abdominal aorta is normal in caliber with scattered atherosclerotic calcifications. ??There is no suspicious enlarged abdominal or pelvis lymph node. ??There is diffuse body wall edema. ??Degenerative changes throughout the spine seen. ??There is no suspicious osseous lesion. Procedure Note Jayro Lemus MD - 12/27/2023 EXAMINATION: Computed tomography of the abdomen and pelvis with intravenous contrast HISTORY: 63-year-old female, status post ex-lap, LIBRA, BSO, preop stents, left colectomy for persistent colitis with colonic microperforation and abscesses and a 15cm complex pelvic mass. Frozen: Mucinous cystadenoma TECHNIQUE: Transaxial computed tomographic images of the abdomen and pelvis were obtained with intravenous contrast according to the standard protocol after the uneventful administration of 67 mL Opti-Ray 350 intravenous contrast. COMPARISON: PET/CT on 12/04/[address] chest, abdomen and pelvis on 11/26/2023 FINDINGS: Moderate left pleural effusion has a slightly decreased compared to the prior exam with adjacent compressive atelectasis. A trace right pleural effusion is slightly increased compared to the prior study with adjacent compressive atelectasis. Atherosclerotic calcifications of the coronary arteries are noted. Hypoattenuating lesion within the left hemiliver is no longer visible on current examination. Hypoattenuating lesion within the bladder dome is unchanged in size measuring 2 cm. Previously seen adjacent hypoattenuating lesion in hepatic dome posterior to the formation collection is not well visualized consistent with improving abscess. Status post cholecystectomy. There is no intra or extrahepatic biliary dilatation. Multiple splenic hypodensity lesions are mostly resolved with residual of a small 6 mm nodule in the medial aspect of the spleen (series 3 image 54). Both adrenal glands are unremarkable. There is no hydronephrosis or nephrolithiasis. Bladder is decompressed with a Saba catheter. The patient is status post hysterectomy and left colectomy with ileostomy in the mid abdomen. There is also status post resection of the large mucinous cystadenoma. There is no evidence of bowel obstruction. There is diffuse mesenteric edema with a small volume of ascites with hyperenhancement of the peritoneal lining on the left. Scattered free air is seen throughout the abdomen and pelvis which could be postoperative. There is mild thickening of the small bowel loops which could be reactive. Abdominal aorta is normal in caliber with scattered atherosclerotic calcifications. There is no suspicious enlarged abdominal or pelvis lymph node. There is diffuse body wall edema. Degenerative changes throughout the spine seen. There is no suspicious osseous lesion. IMPRESSION: 1. 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 2. Small ascites, mesenteric edema and hyperenhancement and thickening of the peritoneal lining on the left which could represent peritonitis which could be infectious or postoperative changes. 3. Improving multiple hepatic and splenic abscesses. 4. Moderate left and small right pleural effusion. 5. Diffuse body wall edema. Electronically signed by: Jayro Wheeler M.D. Yo Ferreira MD IMG CT PROCEDURES Final Resu lt * POCT glucose (12/27/2023 7:54 AM BAG LOADER MACHINE OPERATOR) Pathologist [facility] Glucose, POC 115 70 - 199 mg/dL Blood 12/27/2023 7:54 AM BAG LOADER MACHINE OPERATOR 12/27/2023 7:54 AM BAG LOADER MACHINE OPERATOR Yo Ferreira MD LAB POCT ORDERABLES - DEVICE Final Result [facility] Department [place] [address] * (ABNORMAL) Differential, auto (12/27/2023 3:39 AM BAG LOADER MACHINE OPERATOR) [facility] Neutrophil abs 8.3(H) 1.5 - 6.5 K/cumm Imm gran abs 0.1 0.0 - 0.1 K/cumm [facility] Lymphocyte abs 1.3 0.8 - 3.3 K/cumm [facility] Monocyte abs 0.9(H) 0.2 - 0.8 K/cumm [facility] Eosinophil abs 0.5 0.0 - 0.5 K/cumm [facility] Basophil abs 0.0 0.0 - 0.1 K/cumm [facility] Neutrophil pct 74.4 % [facility] Comment: Interpretive Data Percent cell count reference ranges are not reported, since discordance with absolute values may lead to misinterpretation of CBC data. Current Interpretive Data was last revised on 2017. Imm gran pct 0.5 % [facility] Comment: Interpretive Data Percent cell count reference ranges are not reported, since discordance with absolute values may lead to misinterpretation of CBC data. Current Interpretive Data was last revised on 2017. Lymphocyte pct 11.9 % [facility] Comment: Interpretive Data Percent cell count reference ranges are not reported, since discordance with absolute values may lead to misinterpretation of CBC data. Current Interpretive Data was last revised on 2017. Monocyte pct 8.1 % [facility] Comment: Interpretive Data Percent cell count reference ranges are not reported, since discordance with absolute values may lead to misinterpretation of CBC data. Current Interpretive Data was last revised on 2017. Eosinophil pct 4.8 % [facility] Comment: Interpretive Data Percent cell count reference ranges are not reported, since discordance with absolute values may lead to misinterpretation of CBC data. Current Interpretive Data was last revised on 2017. Basophil pct 0.3 % [facility] Comment: Interpretive Data Percent cell count reference ranges are not reported, since discordance with absolute values may lead to misinterpretation of CBC data. Current Interpretive Data was last revised on 2017. Blood 12/27/2023 3:39 AM BAG LOADER MACHINE OPERATOR 12/27/2023 4:45 AM BAG LOADER MACHINE OPERATOR us Mario Massey MD LAB BLOOD O RDERABLES Final Result [facility] [place] [address] * (ABNORMAL) CBC with auto differential (12/27/2023 3:39 AM BAG LOADER MACHINE OPERATOR) WBC 11.2(H) 3.8 - 9.9 K/cumm Hgb 8.5(L) 11.9 - 15.5 g/dL [facility] Hct 26.7(L) 35.6 - 45.5 % [facility] Plt 288 150 - 400 K/cumm [facility] MPV 9.6 9.1 - 12.3 fL [facility] RBC 3.14(L) 3.90 - 5.20 M/cumm [facility] MCV 85.0 81.3 - 96.4 fL [facility] MCH 27.1 27.1 - 33.3 pg [facility] MCHC 31.8(L) 32.3 - 35.7 g/dL [facility] RDW CV 17.1(H) 11.1 - 14.9 % [facility] RDW SD 53.3(H) 35.7 - 48.1 fL [facility] NRBC abs 0.00 0.00 - 0.01 K/cumm [facility] Blood 12/27/2023 3:39 AM BAG LOADER MACHINE OPERATOR 12/27/2023 4:45 AM BAG LOADER MACHINE OPERATOR Mario Massey MD LAB BLOOD O RDERABLES Final Result Performing Organization Address [facility] Co de Phone Number [facility] [place] [employer] [place] [address] * Transfuse RBC (12/27/2023 2:47 AM BAG LOADER MACHINE OPERATOR) Blood Yo Ferreira MD BLOOD TRANSFUSION ORDERABLES Final Result Performing Organization Address [facility] [place] [address] * Prepare RBC: 1 Units (12/26/2023 11:49 PM BAG LOADER MACHINE OPERATOR) Pathologist [facility] Product code [id number] Unit Number [id number] [facility] Product Blood Type OPOS [facility] Dispense Status PRESUMED TRANSFUSED [facility] Blood 12/26/2023 11:4 9 PM BAG LOADER MACHINE OPERATOR 12/26/2023 11:49 PM BAG LOADER MACHINE OPERATOR Narrative [facility] - 12/27/2023 8:00 AM BAG LOADER MACHINE OPERATOR Are special requirements needed? (All products are leukoreduced and CMV- safe)- >No Date required:-20231226 LRRBC # of [id number] Reasons:-Hgb <7 g/dL} Yo Ferreira MD BLOOD BANK PRODUCT ORDERABLE S Final Result Performing Organization Address [facility] de Phone Number [place], [place] [id number] * (ABNORMAL) eGFR (12/26/2023 10:32 PM BAG LOADER MACHINE OPERATOR) Pathologist [facility] eGFR 59(L) >=60 mL/min/1. 73 m2 Comment: Interpretive Data Reference Interval Normal ?>/= 90 mL/min/1.73m2 Mildly decreased* ? 60 - 89 mL/min/1.73m2 Mildly to moderately decreased ?45 - 59 mL/min/1.73m2 Moderately to severely decreased ??30 - 44 mL/min/1.73m2 Severely decreased ?15 - 29 mL/min/1.73m2 Kidney Failure ?< 15 ??mL/min/1.73m2 *Relative to young adult level Estimated glomerular filtration rate is determined by the 2020 CKD-EPI equation recommended by the National Kidney Foundation (A Unifying Approach to GFR Estimation: Recommendations of the NKF-ASK Task Force on Reassessing the Inclusion of Race in Diagnosing Kidney Disease, JASN 2020). The CKD-EPI equation should not be used for patients with unstable renal function and has not been validated in children and those over 70. Current interpretive data was last reviewed 2020. Blood 12/26/2023 10:3 2 PM BAG LOADER MACHINE OPERATOR 12/26/2023 11:21 PM BAG LOADER MACHINE OPERATOR us Lindsey Tyler ORDERING MACHINE OPERATOR LAB BLOOD ORDERABLES Final Res ult GO ROEBRT [facility] [place] [address] * (ABNORMAL) CBC without differential (12/26/2023 10:32 PM BAG LOADER MACHINE OPERATOR) WBC 10.1(H) 3.8 - 9.9 K/cumm Hgb 6.2(C) 11.9 - 15.5 g/dL GO ROBERT Comment:Critical result call ed to and read back by ALISON DAWSON RN on 12 26 2023 at [address] to [place]. Hct 20.5(L) 35.6 - 45.5 % [facility] Plt 323 150 - 400 K/cumm [facility] MPV 9.4 9.1 - 12.3 fL [facility] RBC 2.33(L) 3.90 - 5.20 M/cumm [facility] MCV 88.0 81.3 - 96.4 fL [facility] MCH 26.6(L) 27.1 - 33.3 pg [facility] MCHC 30.2(L) 32.3 - 35.7 g/dL [facility] RDW CV 17.2(H) 11.1 - 14.9 % [facility] RDW SD 55.1(H) 35.7 - 48.1 fL [facility] NRBC abs 0.00 0.00 - 0.01 K/cumm [facility] Blood 12/26/2023 10:3 2 PM BAG LOADER MACHINE OPERATOR 12/26/2023 11:21 PM BAG LOADER MACHINE OPERATOR Lindsey Tyler ORDERING MACHINE OPERATOR LAB BLOOD ORDERABLES Final Res ult [facility] [place] [address] * (ABNORMAL) Basic metabolic panel (12/26/2023 10:32 PM BAG LOADER MACHINE OPERATOR) Sodium 137 135 - 145 mmol/L Potassium, pl 3.9 3.3 - 4.9 mmol/L [facility] Chloride 103 97 - 110 mmol/L [facility] CO2 26 22 - 32 mmol/L [facility] Anion gap 8 2 - 15 mmol/L [facility] BUN 21 6 - 25 mg/dL [facility] Creatinine 1.05 0.60 - 1.10 mg/dL [facility] Glucose 121 70 - 199 mg/dL [facility] Comment: Interpretive Data Fasting glucose >/= 126 mg/dl is diagnostic for diabetes. ?? Fasting is defined as no caloric intake for at least 8 hours. Fasting glucose between 100 mg/dl to 125 mg/dl is diagnostic of prediabetes. In a patient with classic symptoms of hyperglycemia or hyperglycemic crisis, a random glucose >/= 200 mg/dl is diagnostic for diabetes. In the absence of unequivocal hyperglycemia, results should be confirmed by repeat testing. The classification and Diagnosis of Diabetes Diabetes Care 2021; 46: S19-S40. Current interpretive data was last revised 2022. Calcium 7.7(L) 8.5 - 10.3 mg/dL [facility] Blood 12/26/2023 10:3 2 PM BAG LOADER MACHINE OPERATOR 12/26/2023 11:21 PM BAG LOADER MACHINE OPERATOR Lindsey Tyler ORDERING MACHINE OPERATOR LAB BLOOD ORDERABLES Final Res ult Performing Organization Address City/[facility]/ZIP Co de Phone Number [facility] [place] [employer] [place] [address] * POCT glucose (12/26/2023 7:59 PM BAG LOADER MACHINE OPERATOR) Glucose, POC 151 70 - 199 mg/dL Blood 12/26/2023 7:59 PM BAG LOADER MACHINE OPERATOR 12/26/2023 7:59 PM BAG LOADER MACHINE OPERATOR Yo Ferreira MD LAB POCT ORDERABLES - DEVICE Final Result Performing Organization Address [facility] Co de Phone Number [facility] [place] [employer] [place] [address] * (ABNORMAL) POCT glucose (12/26/2023 5:27 PM BAG LOADER MACHINE OPERATOR) Glucose, POC 213(H) 70 - 199 mg/dL Blood 12/26/2023 5:27 PM BAG LOADER MACHINE OPERATOR 12/26/2023 5:27 PM BAG LOADER MACHINE OPERATOR Yo Ferreira MD LAB POCT ORDERABLES - DEVICE Final Result Performing Organization Address City/[facility] Co de Phone Number [facility] [place] [employer] [address] * (ABNORMAL) POCT glucose (12/26/2023 3:49 PM BAG LOADER MACHINE OPERATOR) Glucose, POC 208(H) 70 - 199 mg/dL Blood 12/26/2023 3:49 PM BAG LOADER MACHINE OPERATOR 12/26/2023 3:49 PM BAG LOADER MACHINE OPERATOR Yo Ferreira MD LAB POCT ORDERABLES - DEVICE Final Result Performing Organization Address [facility] de Phone Number [facility] [place] [employer] [address] * POCT glucose (12/26/2023 12:05 PM BAG LOADER MACHINE OPERATOR) Glucose, POC 158 70 - 199 mg/dL Blood 12/26/2023 12:0 5 PM BAG LOADER MACHINE OPERATOR 12/26/2023 12:05 PM BAG LOADER MACHINE OPERATOR Yo Ferreira MD LAB POCT ORDERABLES - DEVICE Final Result Performing Organization Address [facility] de Phone Number [facility] [place] [employer] [address] * POCT glucose (12/26/2023 8:18 AM BAG LOADER MACHINE OPERATOR) Glucose, POC 125 70 - 199 mg/dL Blood 12/26/2023 8:18 AM BAG LOADER MACHINE OPERATOR 12/26/2023 8:18 AM BAG LOADER MACHINE OPERATOR Yo Ferreira MD LAB POCT ORDERABLES - DEVICE Final Result Performing Organization Address [facility] de Phone Number [facility] [place] [employer] [address] * (ABNORMAL) Lactate (12/26/2023 2:45 AM BAG LOADER MACHINE OPERATOR) Lactate 2.2(H) 0.7 - 2.0 mmol/L Blood 12/26/2023 2:45 AM BAG LOADER MACHINE OPERATOR 12/26/2023 3:17 AM BAG LOADER MACHINE OPERATOR Narrative [facility] - 12/26/2023 4:18 AM BAG LOADER MACHINE OPERATOR To be drawn after prbc administration us Yo Ferreira MD LAB BLOOD ORDERABLES Final R esult [facility] [place] [address] * (ABNORMAL) CBC without differential (12/26/2023 2:45 AM BAG LOADER MACHINE OPERATOR) [facility] WBC 13.4(H) 3.8 - 9.9 K/cumm Hgb 7.4(L) 11.9 - 15.5 g/dL [facility] Hct 24.2(L) 35.6 - 45.5 % [facility] Plt 285 150 - 400 K/cumm [facility] MPV 9.7 9.1 - 12.3 fL [facility] RBC 2.77(L) 3.90 - 5.20 M/cumm [facility] MCV 87.4 81.3 - 96.4 fL [facility] MCH 26.7(L) 27.1 - 33.3 pg [facility] MCHC 30.6(L) 32.3 - 35.7 g/dL [facility] RDW CV 17.2(H) 11.1 - 14.9 % [facility] RDW SD 55.9(H) 35.7 - 48.1 fL [facility] NRBC abs 0.00 0.00 - 0.01 K/cumm [facility] Blood 12/26/2023 2:45 AM BAG LOADER MACHINE OPERATOR 12/26/2023 3:17 AM BAG LOADER MACHINE OPERATOR Narrative [facility] - 12/26/2023 4:08 AM BAG LOADER MACHINE OPERATOR 1 hour after transfusion of red blood cells is complete us Yo Ferreira MD LAB BLOOD ORDERABLES Final R esult Performing Organization Address City/[facility]/ZIP Co de Phone Number [facility] [place] [address] * Transfuse RBC (12/26/2023 12:57 AM BAG LOADER MACHINE OPERATOR) Blood Yo Ferreira MD BLOOD TRANSFUSION ORDERABLES Final Result Performing Organization Address [facility] Co de Phone Number [facility] Department [place] [address] * Prepare RBC: 1 Units (12/25/2023 10:25 PM BAG LOADER MACHINE OPERATOR) Pathologist [facility] Product code [id number] Unit Number [id number] [facility] Product Blood Type OPOS [facility] Dispense Status PRESUMED TRANSFUSED [facility] Blood 12/25/2023 10:2 5 PM BAG LOADER MACHINE OPERATOR 12/25/2023 10:29 PM BAG LOADER MACHINE OPERATOR Narrative [facility] - 12/26/2023 8:00 AM BAG LOADER MACHINE OPERATOR Are special requirements needed? (All products are leukoreduced and CMV- safe)- >No Date required:-20231225 LRRBC # of [id number] Reasons:-Hgb <7 g/dL} us Yo Ferreira MD BLOOD BANK PRODUCT ORDERABLE S Final Result Performing Organization Address [facility] de Phone Number [facility] [place] [address] * (ABNORMAL) eGFR (12/25/2023 8:46 PM BAG LOADER MACHINE OPERATOR) [facility] eGFR 58(L) >=60 mL/min/1. 73 m2 Comment: Interpretive Data Reference Interval Normal ?>/= 90 mL/min/1.73m2 Mildly decreased* ? 60 - 89 mL/min/1.73m2 Mildly to moderately decreased ?45 - 59 mL/min/1.73m2 Moderately to severely decreased ??30 - 44 mL/min/1.73m2 Severely decreased ?15 - 29 mL/min/1.73m2 Kidney Failure ?< 15 ??mL/min/1.73m2 *Relative to young adult level Estimated glomerular filtration rate is determined by the 2020 CKD-EPI equation recommended by the National Kidney Foundation (A Unifying Approach to GFR Estimation: Recommendations of the NKF-ASK Task Force on Reassessing the Inclusion of Race in Diagnosing Kidney Disease, JASN 2020). The CKD-EPI equation should not be used for patients with unstable renal function and has not been validated in children and those over 70. Current interpretive data was last reviewed 2020. Blood 12/25/2023 8:46 PM BAG LOADER MACHINE OPERATOR 12/25/2023 10:01 PM BAG LOADER MACHINE OPERATOR us Parmjit Meehan MD LAB BLOOD ORDERABLES Final Resul t [facility] Department [place] [address] * (ABNORMAL) CBC without differential (12/25/2023 8:46 PM BAG LOADER MACHINE OPERATOR) WBC 11.1(H) 3.8 - 9.9 K/cumm Hgb 6.4(C) 11.9 - 15.5 g/dL [facility] Comment:Critical result call ed to and read back by KATY GONSALEZ RN on 12 25 2023 at 2221 to Queta Garcia. Hct 21.2(L) 35.6 - 45.5 % [facility] Plt 314 150 - 400 K/cumm [facility] MPV 9.5 9.1 - 12.3 fL [facility] RBC 2.43(L) 3.90 - 5.20 M/cumm [facility] MCV 87.2 81.3 - 96.4 fL [facility] MCH 26.3(L) 27.1 - 33.3 pg [facility] MCHC 30.2(L) 32.3 - 35.7 g/dL [facility] RDW CV 17.6(H) 11.1 - 14.9 % [facility] RDW SD 56.3(H) 35.7 - 48.1 fL [facility] NRBC abs 0.00 0.00 - 0.01 K/cumm [facility] Blood 12/25/2023 8:46 PM BAG LOADER MACHINE OPERATOR 12/25/2023 10:01 PM BAG LOADER MACHINE OPERATOR Narrative [facility] - 12/25/2023 10:22 PM BAG LOADER MACHINE OPERATOR Obtain POD 1 at 2200. Parmjit Meehan MD LAB BLOOD ORDERABLES Final Resul t Performing Organization Address City/[facility]/ZIP Co de Phone Number [facility] [place] [address] * (ABNORMAL) Hepatic function panel (12/25/2023 8:46 PM BAG LOADER MACHINE OPERATOR) Bilirubin, total <0.2 0.1 - 1.2 mg/dL Bilirubin, direct <0.2 0.1 - 0.3 mg/dL [facility] Protein, pl 5.2(L) 6.5 - 8.5 g/dL [facility] Albumin 2.1(L) 3.5 - 5.0 g/dL [facility] Alk phos 67 40 - 130 Units/L [facility] ALT 9 7 - 45 Units/L [facility] AST 17 10 - 45 Units/L [facility] Blood 12/25/2023 8:46 PM BAG LOADER MACHINE OPERATOR 12/25/2023 10:01 PM BAG LOADER MACHINE OPERATOR us Yo Ferreira MD LAB BLOOD ORDERABLES Final R esult Performing Organization Address City/[facility]/ZIP Co de Phone Number [facility] [place] [address] * (ABNORMAL) Basic metabolic panel (12/25/2023 8:46 PM BAG LOADER MACHINE OPERATOR) Sodium 133(L) 135 - 145 mmol/L Potassium, pl 3.9 3.3 - 4.9 mmol/L [facility] Chloride 99 97 - 110 mmol/L [facility] CO2 24 22 - 32 mmol/L [facility] Anion gap 10 2 - 15 mmol/L [facility] BUN 20 6 - 25 mg/dL [facility] Creatinine 1.07 0.60 - 1.10 mg/dL [facility] Glucose 171 70 - 199 mg/dL [facility] Comment: Interpretive Data Fasting glucose >/= 126 mg/dl is diagnostic for diabetes. ?? Fasting is defined as no caloric intake for at least 8 hours. Fasting glucose between 100 mg/dl to 125 mg/dl is diagnostic of prediabetes. In a patient with classic symptoms of hyperglycemia or hyperglycemic crisis, a random glucose >/= 200 mg/dl is diagnostic for diabetes. In the absence of unequivocal hyperglycemia, results should be confirmed by repeat testing. The classification and Diagnosis of Diabetes Diabetes Care 2021; 46: S19-S40. Current interpretive data was last revised 2022. Calcium 7.8(L) 8.5 - 10.3 mg/dL [facility] Blood 12/25/2023 8:46 PM BAG LOADER MACHINE OPERATOR 12/25/2023 10:01 PM BAG LOADER MACHINE OPERATOR Narrative [facility] - 12/25/2023 11:46 PM BAG LOADER MACHINE OPERATOR Obtain POD 1 at 2200. Parmjit Meehan MD LAB BLOOD ORDERABLES Final Resul t [facility] [place] [address] * POCT glucose (12/25/2023 8:39 PM BAG LOADER MACHINE OPERATOR) [facility] Glucose, POC 193 70 - 199 mg/dL Blood 12/25/2023 8:39 PM BAG LOADER MACHINE OPERATOR 12/25/2023 8:39 PM BAG LOADER MACHINE OPERATOR us Yo Ferreira MD LAB POCT ORDERABLES - DEVICE Final Result [facility] [place] [address] * POCT glucose (12/25/2023 4:57 PM BAG LOADER MACHINE OPERATOR) Glucose, POC 194 70 - 199 mg/dL Blood 12/25/2023 4:57 PM BAG LOADER MACHINE OPERATOR 12/25/2023 4:57 PM BAG LOADER MACHINE OPERATOR us Yo Ferreira MD LAB POCT ORDERABLES - DEVICE Final Result [facility] [place] [address] * CT Chest W Contrast (12/25/2023 4:34 PM BAG LOADER MACHINE OPERATOR) Anatomical Region Laterality Modality Body N/A Computed Tomogra phy 12/25/2023 5:14 PM BAG LOADER MACHINE OPERATOR Impressions 12/25/2023 5:15 PM BAG LOADER MACHINE OPERATOR Interval resolution of left upper and lower lobe cavitary nodular consolidations with residual atelectasis. ??Small bilateral pleural effusions. Dictated by: Katy Coyne MD The radiology attending physician has personally reviewed this study, and had reviewed and/or edited this written report and agrees with it. Electronically signed by: Brad Greene M.D. Narrative 12/25/2023 5:15 PM BAG LOADER MACHINE OPERATOR EXAMINATION: ??Computed tomography of the chest and pelvis with intravenous contrast HISTORY: 63-year-old woman with left upper lobe lesions. TECHNIQUE: ??Transaxial computed tomographic images of the chest and pelvis were obtained with intravenous contrast according to the standard protocol after the uneventful administration of 68 mL Opti-Ray 350 intravenous contrast. COMPARISON: PET CT 12/04/2023, CT 11/26/2023 FINDINGS: ?? Normal caliber thoracic aorta and main pulmonary artery. ??Thoracic aorta calcifications. ??Mild cardiomegaly. ??Trace pericardial effusion. ??Coronary artery calcifications. ??Unchanged multinodular right thyroid lobe. ??No thoracic lymphadenopathy. Interval resolution of left upper and lower lobe nodules and interseptal thickening. ??No suspicious pulmonary nodule. ??Small bilateral pleural effusions, decreased on the left with associated atelectasis. ??No pneumothorax. Unchanged hepatic dome cyst. ??Cholecystectomy. Diffuse body wall edema. Prominent periportal lymph nodes. No new acute abnormality in the partially imaged upper abdomen. No suspicious osseous lesion. Procedure Note Brad Greene MD - 12/25/2023 EXAMINATION: Computed tomography of the chest and pelvis with intravenous contrast HISTORY: 63-year-old woman with left upper lobe lesions. TECHNIQUE: Transaxial computed tomographic images of the chest and pelvis were obtained with intravenous contrast according to the standard protocol after the uneventful administration of 68 mL Opti-Ray 350 intravenous contrast. COMPARISON: PET CT 12/04/2023, CT 11/26/2023 FINDINGS: Normal caliber thoracic aorta and main pulmonary artery. Thoracic aorta calcifications. Mild cardiomegaly. Trace pericardial effusion. Coronary artery calcifications. Unchanged multinodular right thyroid lobe. No thoracic lymphadenopathy. Interval resolution of left upper and lower lobe nodules and interseptal thickening. No suspicious pulmonary nodule. Small bilateral pleural effusions, decreased on the left with associated atelectasis. No pneumothorax. Unchanged hepatic dome cyst. Cholecystectomy. Diffuse body wall edema. Prominent periportal lymph nodes. No new acute abnormality in the partially imaged upper abdomen. No suspicious osseous lesion. IMPRESSION: Interval resolution of left upper and lower lobe cavitary nodular consolidations with residual atelectasis. Small bilateral pleural effusions. Dictated by: Katy Coyne MD The radiology attending physician has personally reviewed this study, and had reviewed and/or edited this written report and agrees with it. Electronically signed by: Brad Greene M.D. Yo Ferreira MD IMG CT PROCEDURES Final Resu lt * POCT glucose (12/25/2023 2:12 PM BAG LOADER MACHINE OPERATOR) Glucose, POC 159 70 - 199 mg/dL Blood 12/25/2023 2:12 PM BAG LOADER MACHINE OPERATOR 12/25/2023 2:12 PM BAG LOADER MACHINE OPERATOR Yo Ferreira MD LAB POCT ORDERABLES - DEVICE Final Result [facility] [place] [address] * POCT glucose (12/25/2023 11:56 AM BAG LOADER MACHINE OPERATOR) Glucose, POC 191 70 - 199 mg/dL Blood 12/25/2023 11:5 6 AM BAG LOADER MACHINE OPERATOR 12/25/2023 11:56 AM BAG LOADER MACHINE OPERATOR Yo Ferreira MD LAB POCT ORDERABLES - DEVICE Final Result Performing Organization Address [facility] de Phone Number [facility] [place] [address] * Infection Prevention Angie auris PCR, surveillance Axilla/Groin (12/25/2023 10:27 AM BAG LOADER MACHINE OPERATOR) [facility] Angie auris DNA Not Detected Not Detected [facility] Comment: Interpretive Data Testing performed by [facility] using the Lateral SVison MDX Angie auris assay. ??This assay detects DNA from Angie auris using Real-Time PCR. ??This assay is laboratory developed and is not cleared by the [facility] Food and Drug Administration. ??The performance characteristics have been verified by the [facility]. Interpretive data was last reviewed on 06/11/2023 Axilla/Groin 12/25/2023 10:2 7 AM BAG LOADER MACHINE OPERATOR 12/25/2023 10:47 AM BAG LOADER MACHINE OPERATOR Familia So MD LAB MICROBIOLOGY - GENERAL OR DERABLES Final Result Performing Organization Address [facility] de Phone Number [facility] Department [place] [address] [facility] * POCT glucose (12/25/2023 8:45 AM BAG LOADER MACHINE OPERATOR) Glucose, POC 134 70 - 199 mg/dL Blood 12/25/2023 8:45 AM BAG LOADER MACHINE OPERATOR 12/25/2023 8:45 AM BAG LOADER MACHINE OPERATOR Yo Ferreira MD LAB POCT ORDERABLES - DEVICE Final Result Performing Organization Address [facility]/ZIP Co de Phone Number [facility] Department [place] [address] * eGFR (12/24/2023 9:58 PM BAG LOADER MACHINE OPERATOR) eGFR 75 >=60 mL/min/1. 73 m2 Comment: Interpretive Data Reference Interval Normal ?>/= 90 mL/min/1.73m2 Mildly decreased* ? 60 - 89 mL/min/1.73m2 Mildly to moderately decreased ?45 - 59 mL/min/1.73m2 Moderately to severely decreased ??30 - 44 mL/min/1.73m2 Severely decreased ?15 - 29 mL/min/1.73m2 Kidney Failure ?< 15 ??mL/min/1.73m2 *Relative to young adult level Estimated glomerular filtration rate is determined by the 2020 CKD-EPI equation recommended by the National Kidney Foundation (A Unifying Approach to GFR Estimation: Recommendations of the NKF-ASK Task Force on Reassessing the Inclusion of Race in Diagnosing Kidney Disease, JASN 2020). The CKD-EPI equation should not be used for patients with unstable renal function and has not been validated in children and those over 70. Current interpretive data was last reviewed 2020. Blood 12/24/2023 9:58 PM BAG LOADER MACHINE OPERATOR 12/24/2023 11:10 PM BAG LOADER MACHINE OPERATOR Parmjit Meehan MD LAB BLOOD ORDERABLES Final Resul t Performing Organization Address City/[facility]/ZIP Co de Phone Number [facility] Department [place] [address] * (ABNORMAL) CBC without differential (12/24/2023 9:58 PM BAG LOADER MACHINE OPERATOR) Pathologist [facility] WBC 17.3(H) 3.8 - 9.9 K/cumm Hgb 8.3(L) 11.9 - 15.5 g/dL [facility] Hct 27.3(L) 35.6 - 45.5 % [facility] Plt 336 150 - 400 K/cumm [facility] MPV 10.2 9.1 - 12.3 fL [facility] RBC 3.17(L) 3.90 - 5.20 M/cumm [facility] MCV 86.1 81.3 - 96.4 fL [facility] MCH 26.2(L) 27.1 - 33.3 pg [facility] MCHC 30.4(L) 32.3 - 35.7 g/dL [facility] RDW CV 17.8(H) 11.1 - 14.9 % [facility] RDW SD 56.6(H) 35.7 - 48.1 fL [facility] NRBC abs 0.00 0.00 - 0.01 K/cumm [facility] Blood 12/24/2023 9:58 PM BAG LOADER MACHINE OPERATOR 12/24/2023 11:09 PM BAG LOADER MACHINE OPERATOR Narrative [facility] - 12/24/2023 11:18 PM BAG LOADER MACHINE OPERATOR Obtain POD 0 at 2200. us Parmjit Meehan MD LAB BLOOD ORDERABLES Final Resul t [facility] [place] [address] * Basic metabolic panel (12/24/2023 9:58 PM BAG LOADER MACHINE OPERATOR) [facility] Sodium 138 135 - 145 mmol/L Potassium, pl 4.1 3.3 - 4.9 mmol/L [facility] Chloride 101 97 - 110 mmol/L [facility] CO2 26 22 - 32 mmol/L [facility] Anion gap 11 2 - 15 mmol/L [facility] BUN 16 6 - 25 mg/dL [facility] Creatinine 0.86 0.60 - 1.10 mg/dL [facility] Glucose 180 70 - 199 mg/dL [facility] Comment: Interpretive Data Fasting glucose >/= 126 mg/dl is diagnostic for diabetes. ?? Fasting is defined as no caloric intake for at least 8 hours. Fasting glucose between 100 mg/dl to 125 mg/dl is diagnostic of prediabetes. In a patient with classic symptoms of hyperglycemia or hyperglycemic crisis, a random glucose >/= 200 mg/dl is diagnostic for diabetes. In the absence of unequivocal hyperglycemia, results should be confirmed by repeat testing. The classification and Diagnosis of Diabetes Diabetes Care 2021; 46: S19-S40. Current interpretive data was last revised 2022. Calcium 8.7 8.5 - 10.3 mg/dL [facility] Blood 12/24/2023 9:58 PM BAG LOADER MACHINE OPERATOR 12/24/2023 11:10 PM BAG LOADER MACHINE OPERATOR Narrative [facility] - 12/24/2023 11:38 PM BAG LOADER MACHINE OPERATOR Obtain POD 0 at 2200. us Parmjit Meehan MD LAB BLOOD ORDERABLES Final Resul t Performing Organization Address City/[facility]/ZIP Co de Phone Number [facility] Department [place] [address] * (ABNORMAL) POCT glucose (12/24/2023 8:41 PM BAG LOADER MACHINE OPERATOR) Glucose, POC 201(H) 70 - 199 mg/dL Comment:Glu2: RN/MD Notified Glucose comment 1 Glu2: RN/MD Notified [facility] Blood 12/24/2023 8:41 PM BAG LOADER MACHINE OPERATOR 12/24/2023 8:41 PM BAG LOADER MACHINE OPERATOR us Yo Ferreira MD LAB POCT ORDERABLES - DEVICE Final Result [facility] [place] [employer] [place] [address] * POCT glucose (12/24/2023 6:04 PM BAG LOADER MACHINE OPERATOR) Glucose, POC 189 70 - 199 mg/dL Blood 12/24/2023 6:04 PM BAG LOADER MACHINE OPERATOR 12/24/2023 6:04 PM BAG LOADER MACHINE OPERATOR us Parmjit Meehan MD LAB POCT ORDERABLES - DEVICE Fin al Result [facility] [place] [address] * (ABNORMAL) POC Blood Gas and Chemistries, Arterial - (12/24/2023 4:47 PM BAG LOADER MACHINE OPERATOR) pH, Art POC 7.40 7.35 - 7.45 pCO2, Art POC 38 35 - 45 mmHg [facility] pO2, Art POC 79(L) 83 - 108 mmHg [facility] H Na, POC 134(L) 135 - 145 mmol/L [facility] K POC 3.4 3.3 - 4.9 mmol/L [facility] Comment: Interpretive Data Not all point of care methods assess for hemolysis. Confirm with instrument and retest K+ if not consistent with clinical signs and symptoms. Current Interpretive Data was last revised on 2023. Cl, POC 104 97 - 110 mmol/L [facility] Ionized Ca, POC 5.03 4.50 - 5.10 mg/dL [facility] Glucose, POC 180 70 - 199 mg/dL [facility] Lactate, POC 1.2 0.7 - 2.2 mmol/L [facility] SO2 (donna) arterial 96(H) 90 - 95 % [facility] Base excess, POC -1.1 mmol/L [facility] HCO3, Art POC 24 20 - 30 mmol/L [facility] Hct, POC 27.0(L) 36.3 - 45.3 % [facility] Total Hb, POC 9.0(L) 11.9 - 15.5 g/dL [facility] Blood 12/24/2023 4:47 PM BAG LOADER MACHINE OPERATOR 12/24/2023 4:47 PM BAG LOADER MACHINE OPERATOR us Yo Ferreira MD LAB POCT ORDERABLES - DEVICE Final Result [facility] [place] [address] * POCT glucose (12/24/2023 4:07 PM BAG LOADER MACHINE OPERATOR) Glucose, POC 124 70 - 199 mg/dL Blood 12/24/2023 4:07 PM BAG LOADER MACHINE OPERATOR 12/24/2023 4:07 PM BAG LOADER MACHINE OPERATOR us Parmjit Meehan MD LAB POCT ORDERABLES - DEVICE Fin al Result [facility] [place] [address] * (ABNORMAL) POC Blood Gas and Chemistries, Arterial - (12/24/2023 3:22 PM BAG LOADER MACHINE OPERATOR) pH, Art POC 7.41 7.35 - 7.45 pCO2, Art POC 39 35 - 45 mmHg [facility] pO2, Art POC 191(H) 83 - 108 mmHg [facility] Na, POC 134(L) 135 - 145 mmol/L [facility] K POC 3.1(L) 3.3 - 4.9 mmol/L [facility] Comment: Interpretive Data Not all point of care methods assess for hemolysis. Confirm with instrument and retest K+ if not consistent with clinical signs and symptoms. Current Interpretive Data was last revised on 2023. Cl, POC 103 97 - 110 mmol/L [facility] Ionized Ca, POC 5.36(H) 4.50 - 5.10 mg/dL [facility] Glucose, POC 161 70 - 199 mg/dL [facility] Lactate, POC 1.2 0.7 - 2.2 mmol/L [facility] SO2 (donna) arterial 98(H) 90 - 95 % [facility] Base excess, POC 0.1 mmol/L [facility] HCO3, Art POC 25 20 - 30 mmol/L [facility] Hct, POC 25.0(L) 36.3 - 45.3 % [facility] Total Hb, POC 8.2(L) 11.9 - 15.5 g/dL [facility] Blood 12/24/2023 3:22 PM BAG LOADER MACHINE OPERATOR 12/24/2023 3:22 PM BAG LOADER MACHINE OPERATOR us Parmjit Meehan MD LAB POCT ORDERABLES - DEVICE Fin al Result GO ROBERT [facility] Department [place] [address] * (ABNORMAL) Tissue aerobic and anaerobic culture and gram stain Tissue Colon (12/24/2023 3:00 PM BAG LOADER MACHINE OPERATOR) Direct Specimen Exam Stain: Few polymorphonuclear leukocytes seen. Rare Gram Positive Cocci Rare Gram Positive Bacilli Report Final Report: Abundant Enterococcus faecium Rare Klebsiella pneumoniae The susceptibility pattern of this Klebsiella pneumoniae indicates the possible production of an extended spectrum beta lactamase (ESBL). ??Patients infected with ESBL-producing organisms require contact isolation precautions. ??For therapeutic options for this organism, please contact infectious diseases. Few Mixed microorganisms. (.) [facility] Organism ENTEROCOCCUS FAECIUM [facility] Organism KLEBSIELLA PNEUMONIAE [facility] Organism MIXED MICROORGANISMS. [facility] Tissue (Colon) 12/24/2023 3: 00 PM BAG LOADER MACHINE OPERATOR 12/24/2023 4:56 PM BAG LOADER MACHINE OPERATOR Narrative [facility] - 01/05/2024 3:05 PM BAG LOADER MACHINE OPERATOR Left colon Testing performed by [facility] ([phone]) Specimens submitted from normally sterile body sites will have all bacterial morphotypes identified. Specimens that contain grossly mixed noah and/or are from body sites that are not normally sterile will be examined for Staphylococcus aureus, Pseudomonas aeruginosa, beta-hemolytic strep, vancomycin-resistant Enterococcus, Bacteroides, Parabacteroides, Clostridium perfringens and fungus. If any of these are isolated, the organism will be reported. Current interpretive data was last revised on 2019. Organism Antibiotic Method Susceptibility Enterococcus faecium Daptomycin (BRYCE) (BRYCE) INTERPRETA TION Susceptible Dose-dependent Enterococcus faecium Ampicillin (BRYCE) INTERPRETATION Resistant Enterococcus faecium Vancomycin (BRYCE) INTERPRETATION Resistant Enterococcus faecium Linezolid (BRYCE) INTERPRETATION Susceptible Enterococcus faecium Doxycycline (BRYCE) INTERPRETATION Resistant Klebsiella pneumoniae Ampicillin INTERPRETATION Resistant Klebsiella pneumoniae Cefazolin INTERPRETATION Resistant Klebsiella pneumoniae Gentamicin INTERPRETATION Susceptible Klebsiella pneumoniae Ampicillin with Sulbactam INTERPRETATION Resistant Klebsiella pneumoniae Trimethoprim with Sulfamethoxazole INTERPRETATION Resistant Klebsiella pneumoniae Meropenem INTERPRETATION Susceptible Klebsiella pneumoniae Cefepime INTERPRETATION Susceptible Klebsiella pneumoniae Ciprofloxacin INTERPRETATION Resistant Klebsiella pneumoniae Ceftazidime INTERPRETATION Resistant Klebsiella pneumoniae Ceftriaxone INTERPRETATION Susceptible Klebsiella pneumoniae Piperacillin/Tazobactam INTERPRETATION Intermediate Klebsiella pneumoniae Amikacin INTERPRETATION Susceptible Klebsiella pneumoniae Aztreonam INTERPRETATION Susceptible Klebsiella pneumoniae Imipenem INTERPRETATION Susceptible Klebsiella pneumoniae Ertapenem INTERPRETATION Susceptible Klebsiella pneumoniae Minocycline INTERPRETATION Susceptible Klebsiella pneumoniae Tobramycin INTERPRETATION Susceptible Klebsiella pneumoniae Levofloxacin INTERPRETATION Resistant Klebsiella pneumoniae Doxycycline INTERPRETATION Susceptible Yo Ferreira MD LAB MICROBIOLOGY - GENERAL O RDERABLES Final Result Performing Organization Address [facility] Co de Phone Number [facility] [place] [address] * Mycology (fungal) culture and stain Tissue Colon (12/24/2023 3:00 PM BAG LOADER MACHINE OPERATOR) Pathologist [facility] Direct Specimen Exam Stain: No Fungal elements seen. Report Final Report: No growth of fungus [facility] Tissue (Colon) 12/24/2023 3: 00 PM BAG LOADER MACHINE OPERATOR 12/24/2023 4:57 PM BAG LOADER MACHINE OPERATOR Narrative [facility] - 01/21/2024 7:59 AM BAG LOADER MACHINE OPERATOR Left colon Testing performed by [facility] ([phone]). Yo Ferreira MD LAB MICROBIOLOGY - GENERAL O RDERABLES Final Result Performing Organization Address [facility] de Phone Number [facility] [place] [address] * (ABNORMAL) POC Blood Gas and Chemistries, Arterial - (12/24/2023 1:47 PM BAG LOADER MACHINE OPERATOR) Pathologist [facility] pH, Art POC 7.44 7.35 - 7.45 pCO2, Art POC 40 35 - 45 mmHg [facility] pO2, Art POC 156(H) 83 - 108 mmHg [facility] Na, POC 134(L) 135 - 145 mmol/L [facility] K POC 3.5 3.3 - 4.9 mmol/L [facility] Comment: Interpretive Data Not all point of care methods assess for hemolysis. Confirm with instrument and retest K+ if not consistent with clinical signs and symptoms. Current Interpretive Data was last revised on 2023. Cl, POC 101 97 - 110 mmol/L [facility] Ionized Ca, POC 4.75 4.50 - 5.10 mg/dL [facility] Glucose, POC 142 70 - 199 mg/dL [facility] Lactate, POC 0.9 0.7 - 2.2 mmol/L [facility] SO2 (donna) arterial 99(H) 90 - 95 % [facility] Base excess, POC 2.8 mmol/L [facility] HCO3, Art POC 27 20 - 30 mmol/L [facility] Hct, POC 28.0(L) 36.3 - 45.3 % [facility] Total Hb, POC 9.3(L) 11.9 - 15.5 g/dL [facility] Blood 12/24/2023 1:47 PM BAG LOADER MACHINE OPERATOR 12/24/2023 1:47 PM BAG LOADER MACHINE OPERATOR us Parmjit Meehan MD LAB POCT ORDERABLES - DEVICE Fin al Result [facility] Department [place] [address] * AL AN PROCEDURE PLACEHOLDER (12/24/2023 1:38 PM BAG LOADER MACHINE OPERATOR) Narrative Gin Daniels CRNA - 12/24/2023 1:38 PM BAG LOADER MACHINE OPERATOR Gin Daniels CRNA ? 12/24/2023 ??1:39 PM Arterial Line Patient location: OR Indication: continuous blood pressure monitoring and blood sampling needed Staff: Placed by: REFRIGERATION SYSTEMS INSTALLER: Gin Daniels CRNA Procedure prep: Prep solution: chlorhexadine/alcohol Prep: provider hat/mask Arterial line: Catheter size: 20 gauge Catheter length: 1 and 3/4 inch Catheter type: wire-guided catheter Seldinger technique: no Laterality: left Site: radial artery Line secured: tape and Tegaderm Results: good waveform and good blood return Number of attempts: 3 Other sites attempted: R radial. more distally Assessment: Events: patient tolerated procedure well with no complications Stan Malik MD ANESTHESIA ORDERABLE S Final Result * AL AN ELECTIVE ENDOTRACHEAL AIRWAY, AL AN PROCEDURE PLACEHOLDER (12/24/2023 1:37 PM BAG LOADER MACHINE OPERATOR) Narrative Gin Daniels CRNA - 12/24/2023 1:37 PM BAG LOADER MACHINE OPERATOR Gin Dnaiels CRNA ? 12/24/2023 ??1:38 PM Airway Patient location: OR Urgency: elective Indications for airway management: anesthesia Difficult airway: no Staff: Supervising provider: Joya Dennis MD Placed by: REFRIGERATION SYSTEMS INSTALLER: Gin Daniels CRNA Emergent airway documentation: Risks and benefits discussed: yes Consent obtained: yes Consent given by: patient Airway prep: Preoxygenated: yes Patient position: sniffing Mask difficulty assessment: 0 - not attempted Spontaneous ventilation during airway: absent Sedation level during airway: GA Final airway details: Final airway type: endotracheal airway Tube type: ETT ETT size: 7.0 mm Cuffed: yes Technique used for successful ETT placement: direct laryngoscopy Devices/Methods used in placement: stylet Insertion site: oral Blade type: Johnny Blade size: 3 Cormack-Lehane (direct): grade I - full view of glottis Initial cuff pressure: 27 cm H2O Cuff volume: 7 mL Cuff inflated with: air ETT to gums: 22 cm Placement verified by: auscultation and CO2 detection Airway secured with: silk tape Number of attempts: 1 Stan Malik MD ANESTHESIA ORDERABLE S Final Result * Surgical pathology (12/24/2023 12:57 PM BAG LOADER MACHINE OPERATOR) Ovary(ies) with or without tube, tumor 12/24/2023 12:57 PM BAG LOADER MACHINE OPERATOR 12/24/2023 1:09 PM BAG LOADER MACHINE OPERATOR Narrative 01/05/2024 5:27 PM BAG LOADER MACHINE OPERATOR EPIC results best viewed via link to PDF [facility] [place] [address] Note to Patients: This report may contain a detailed description of human tissue sent by a health care provider to the laboratory for pathologic evaluation. The content of this report is essential for diagnosis and may provide important critical findings. This information may be unfamiliar to patients to review without a medical professional present. It is advised that the patient review this report in the presence of a health care provider who can answer questions and explain the details. SURGICAL PATHOLOGY REPORT FINAL Patient Name: ?? DARIUS RUSSO Gender: ??F : ??1960 (Age: 63) Address: ??[address] [place] [address] ??[id number] Hospital #: ??[id number] Taken:12/24/2023 Received:12/24/2023 Reported: 01/05/2024 Patient Type: [facility] Inpatient ?? Service: Medical Location: [place] [address] Physician(s): ??Yo Ferreira M.D. Kaushal Heath M.D. Diagnosis: A. ??Ovary and fallopian tube, left, salpingo-oophorectomy (including AFR1) ? - Mucinous borderline tumor ? 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 - See comment ? - Fallopian tube with focal serosal adhesions B. ??Uterus, cervix, right fallopian tube and ovary, hysterectomy and right salpingo-oophorectomy ? - Cervix with chronic cervicitis and no evidence of dysplasia or malignancy ? - Endometrium with inactive pattern and no evidence of hyperplasia or malignancy ? - Myometrium with leiomyoma, multiple ? - Fallopian tube with focal serosal adhesions ? - Ovary with no histopathologic abnormality C. ??Left colon, partial colectomy ? - Transmural defect with associated acute and chronic inflammation, granulation tissue, and pericolonic abscess in the background of colonic diverticulosis, consistent with perforated diverticulitis ? - Colonic mucosa with features of mild chronic active colitis, consistent with segmental colitis associated with diverticulosis (SCAD) ? - Hyperplastic polyps ? - Negative for dysplasia or malignancy ? - Thirteen benign lymph nodes with no histopathologic abnormality 12/30/2023 08:25 By this signature, I attest that the above diagnosis is based upon my personal examination of the slides(and/or other material indicated in the diagnosis). Lindsay Martinez M.D. Report Electronically Reviewed and Signed Out By ??Lindsay Martinez M.D. 01/05/2024 17:27:35 Diagnosis Comment Part C was reviewed by Dr. Dawson Hannah with the Gastrointestinal Pathology Division who agrees with the above diagnosis. 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 Gross Consultation A: Left tube & ovary Received fresh is a 1,608 g, 18.0 x 16.0 x 7.5 cm ovary and 10.5 x 0.7 cm fallopian tube. The specimen is intact, smooth, and without any gross external lesions. The specimen is opened to reveal a large, multiloculated cyst with copious amount of mucinous fluid. Pile Driver Operator sections are frozen as AFR1. By Narcisa Phan MS, PA ([facility])Kerwin HOYOS M.D., Rip Lott M.D. I personally examined the relevant preparation(s) or a microscopic image of the relevant preparation(s) for the specimen(s) while the surgical procedure was still underway and rendered or confirmed the diagnosis(es) Report Electronically reviewed and Signed out by Kerwin Calderon M.D. (A) Microscopic Description and Comment: Microscopic examination substantiates the above cited diagnosis. (Part A) Sections show a multiloculated cyst wall lined by gastrointestinal-type mucinous epithelium with variable degrees of stratification, tufting, and slender filiform papillae. There is low-grade nuclear atypia and background mucinous cystadenoma component. 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 There is areas of surface necrosis and multinucleate giant cell reaction. Given this patient also had abscesses and perforated diverticulitis on the left side of her colon, it is unclear whether this represents sequelae from her diverticulitis or possible microscopic rupture of mucinous borderline tumor. Of note, no viable epithelial mucinous cells are seen associated with the necrosis. Select slides are reviewed with Dr. Tianna Rodriguez, Dr. Rick Pierson, and Dr. Jose Calderon, who agree with the diagnosis. This result was flagged as significant and was sent to Dr. Rhodes via email on 12/31/23. Reason(s): To the best of our knowledge, this is the first diagnosis of this type of malignancy rendered for this patient. Edith Dowell M.D. History: The patient is a 63-year-old woman with a history of recently diagnosed IBD (initially thought ulcerative colitis, now more likely Crohn's) with persistent colitis of sigmoid colon with microperforation, absences on the liver and spleen, cavitary lung lesions, and a left ovarian mass. ??Operative procedure: ??Left colon resection, abdominal hysterectomy, bilateral salpingo oophorectomy Specimen(s) Received: A: Left tube & ovary B: Uterus, cervix, right ovary and tube C: Left colon Gross Description: Received in three formalin jars labeled with the patient's identifiers. A. ??Labeled left tube and ovary is a previously sampled specimen, originally weighing 1608 g and consisting of an ovary measuring 18.0 x 16.0 x 7.5 cm and fallopian tube measuring 10.5 cm in length by 0.7 cm in diameter. ??The specimen was originally intact and smooth, and the exterior surface was inked black. ??Opening the specimen reveals a large multiloculated cyst with extensive mucinous fluid. ??Also included in the container is a frozen section remnant in white cassette AFR1 measuring 2.1 x 1.7 x 0.2 cm. ??The frozen remnant is submitted as is. A1 AFR1 frozen remnant A2 Fallopian tube with bisected fimbriae A3-A8 Pile Driver Operator cyst wall, three per cassette Jar 4. B. ??Labeled uterus, cervix, right ovary and tube is a 69 g hysterectomy specimen including uterus (6.8 by 4.0 x 3.1 cm), with cervix (2.8 x 2.3 cm, slit-like opening), right fallopian tube (5.5 cm in length and 0.5 cm in diameter), and right ovary (2.1 by 1.2 x 1.2 cm). ??The serosal surface is dupree smooth and glistening, with a slightly whiter area at the posterior aspect measuring 0.3 cm in greatest dimension and another at the fundus, 0.3 cm in greatest dimension, and a third at the right anterior aspect measuring 0.7 cm in greatest dimension.. ??The endocervical canal has dupree-pink mucosa with scattered nabothian cysts, 0.6 cm in greatest dimension. ??The endometrium is dupree with no polyps. ??The myometrial wall thickness ranges from 1.5-1.8 cm. ??The fallopian tube includes the fimbria. ??The right ovary is unremarkable. B1 Anterior cervix (12 o'clock) B2 Posterior cervix with and posterior vaginal cuff B3 Posterior serosal discoloration B4 Fundal serosal discoloration B5 Fundal and right anterior serosal discoloration B6 Putative anterior endometrium B7 Putative posterior endometrium B8 Fallopian tube with bisected fimbriae B9 Cross-section of ovary Jar 2. C. ??Labeled left colon is a resection specimen containing colon (27.1 cm in length, 3.3 cm in diameter) and rectum (4.5 cm in length, 2.0 cm in diameter). ??The mucosa of the colon is dupree and abnormally nodular, with an area approximately 5.0 cm from the proximal resection margin with 10-20 tiny nodules that are brownish red, 0.6 cm in greatest dimension. ??The more distal colon has larger nodules in the mucosa with diffuse tiny brown punctate spots of intramucosal hemorrhage. ??In the rectum, an area mucosal hypertrophy and firmness measuring 3.0 x 1.5 cm is noted. ??The serosa of the bowel is dark brown and putatively inflamed. ??Beginning at the putative turn in the descending to sigmoid colon, approximately 15.0 cm from the proximal resection margin and 9.0 cm from the distal resection margin and 9.0 cm from the radial margin, the surrounding fat appears inflamed and is very firm. The colonic wall thickness at maximum appears to be approximately 1.9 cm. ??The firm area in the mesentery measures 9.5 x 7.5 x 2.5 cm. ??A central area measuring 0.8 cm is draining whitish green purulent fluid. ??Sectioning through the mass reveals a large infected abscess with greenish purulent fluid in the fat and a putative area of colonic disruption leading to the abscess. C1 Proximal margin, en face C2 Distal margin, en face C3 Radial margin shave closest to sigmoid colon C4 Nodular mucosa in proximal specimen C5 Additional nodular mucosa C6 Nodular mucosa in sigmoid close to mesenteric firmness C7 Colon with disruption leading to abscess/mass C8 Additional colon with abscess C9 Area of mucosal thickening in rectum C10-C12 Lymph nodes, submitted intact, five in C10 and 11 and two in C12 Jar 4. ?? anthony/12/25/2023 17:49 Gross Resident:Oma Gillette M.D., P.h.D. ? CANCER CASE SUMMARY FOR PRIMARY TUMORS OF THE OVARY, FALLOPIAN TUBE, OR PERITONEUM ? Procedure: ?Total hysterectomy and bilateral salpingo-oophorectomy ?Left colon resection ? Specimen Integrity: ?Right Ovary: Capsule intact ?Left Ovary: Capsule intact ? Primary tumor site: ?Left ovary ? Ovarian surface involvement: ?Cannot be determined: necrosis from IBD, cnnot exclude microscopic breach of capsule ? Tumor size: ?Greatest dimension: 18 cm ? 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 Implants: ?Not identified ? Other Tissue/Organ Involvement: ?Not identified ? Peritoneal ascitic fluid: ?Negative for malignancy (normal/benign) ? Treatment effect: ?No known presurgical therapy ? Regional Lymph Nodes: ?Total number of nodes examined: 13 ?Site pericolonic ? Pathologic Stage Classification (pTNM, AJCC 8th Edition): ? Primary Tumor (pT): ?pT1a: Tumor limited to one ovary (capsule intact) or fallopian tube, no tumor on ovarian or fallopian tube surface; no malignant cells in ascites or peritoneal washings # ? Regional Lymph Nodes (pN): ?pN0: No regional lymph node metastasis ? FIGO Stage (FIGO 2015 Cancer Report): ?IA: Tumor limited to 1 ovary (capsule intact) or fallopian tube; no tumor on ovarian or fallopian tube surface; no malignant cells in the ascites or peritoneal washings ? The pathologic stage assigned here should be regarded as provisional, and may change after integration ?of clinical data not provided with this specimen. ? CAP VERSION: OvaryFallopian 2.0.0.0 ? By this signature, I attest that the above diagnosis is based upon my personal examination of the slides(and/or other material). Carmen Adams D.O. Dawson Hannah M.D. Addenda/Procedures The performance characteristics of some immunohistochemical stains, fluorescence in-situ hybridization tests and immunophenotyping by flow cytometry cited in this report (if any) were determined by the Surgical Pathology and Flow Cytometry Departments at [facility] as part of an ongoing quality assurance tech program and in compliance with federally mandated regulations drawn from the Clinical Laboratory Improvement Act of 1988 (CLIA '88). ??Some of these tests rely on the use of analyte specific reagents and are subject to specific labeling requirements by the US Food and Drug Administration. ??Such diagnostic tests may only be performed in a facility that is certified by the Department of Health and Human Services as a high complexity laboratory under CLIA '88. ??The FDA has determined that such clearance or approval is not necessary. ??This test is used for clinical purposes. ??It should not be regarded as investigational or for research. ??Nevertheless, federal rules concerning the medical use of analyte specific reagents require that the following disclaimer be attached to the report: This test was developed and its performance characteristics determined by the Surgical Pathology and Flow Cytometry Departments of [facility]. ??It has not been cleared or approved by the U. S. Food and Drug Administration. IMAGES AND SCANNED DOCUMENTS, IF INCLUDED, ONLY VIEWABLE IN PDF VERSION OF REPORT us Yo Ferreira MD LAB PATHOLOGY ORDERABLES Fin al Result * Cytology (12/24/2023 12:49 PM BAG LOADER MACHINE OPERATOR) Pelvis (Cytology) 12/24/2023 12:49 PM BAG LOADER MACHINE OPERATOR 12/24/2023 4:58 PM BAG LOADER MACHINE OPERATOR Narrative 12/25/2023 3:06 PM BAG LOADER MACHINE OPERATOR EPIC results best viewed via link to PDF [facility] [place] [address] Note to Patients: This report may contain a detailed description of human tissue sent by a health care provider to the laboratory for pathologic evaluation. The content of this report is essential for diagnosis and may provide important critical findings. This information may be unfamiliar to patients to review without a medical professional present. It is advised that the patient review this report in the presence of a health care provider who can answer questions and explain the details. CYTOPATHOLOGY REPORT FINAL Patient Name: ?? DARIUS RUSSO Gender: ??F : ??1960 (Age: 63) Address: ??[address] [place] [address] ??[id number] Hospital #: ??[id number] Taken:12/24/2023 Received:12/24/2023 Reported: 12/25/2023 Patient Type: [facility] Inpatient ?? Service: [employer] Location: [facility] [address] Physician(s): ??Yo Ferreira M.D. Kaushal Heath M.D. Melissa Rhodes M.D. MD Mau Bush MD James Thomas Gross, MD Dhruti X Patel, MD FINAL DIAGNOSIS A. ??Pelvic washing: ? - Negative for malignancy ctb/12/25/2023 15:06 By this signature, I attest that the above diagnosis is based upon my personal examination of the slides(and/or other material indicated in the diagnosis). Jarvis Dias M.D. Report Electronically Reviewed and Signed Out By ??Jarvis Dias M.D. 12/25/2023 15:06:13 Miley Dueñas, GUERRERO(ASCP) Gross Description A. ??Pelvic washing: ??62 ml red fluid - 1 Pap stained ThinPrep. (vo) Clinical Diagnosis and History ulcerative pancolitis with complication REPORT IMAGES AND SCANNED DOCUMENTS, IF INCLUDED, ONLY VIEWABLE IN PDF VERSION OF REPORT The performance characteristics of some immunohistochemical stains, in-situ hybridization and fluorescence in-situ hybridization tests and immunophenotyping by flow cytometry cited in this report (if any) were determined by the Surgical Pathology and Flow Cytometry Departments at [facility] as part of an ongoing quality assurance tech program and in compliance with federally mandated regulations drawn from the Clinical Laboratory Improvement Act of 1988 (CLIA '88). ??Some of these tests rely on the use of analyte specific reagents and are subject to specific labeling requirements by the US Food and Drug Administration. ??Such diagnostic tests may only be performed in a facility that is certified by the Department of Health and Human Services as a high complexity laboratory under CLIA '88. ??The FDA has determined that such clearance or approval is not necessary. ??This test is used for clinical purposes. ??It should not be regarded as investigational or for research. ??Nevertheless, federal rules concerning the medical use of analyte specific reagents require that the following disclaimer be attached to the report: ??This test was developed and its performance characteristics determined by the Surgical Pathology and Flow Cytometry Departments of [facility]. ??It has not been cleared or approved by the U. S. Food and Drug Administration. Yo Ferreira MD LAB CYTOLOGY ORDERABLES Samantha l Result * Type and screen (12/24/2023 11:13 AM BAG LOADER MACHINE OPERATOR) ABO Rh O Positive Maira, indirect Negative [facility] Blood 12/24/2023 11:1 3 AM BAG LOADER MACHINE OPERATOR 12/24/2023 11:21 AM BAG LOADER MACHINE OPERATOR N[facility]ative [facility] - 12/24/2023 12:48 PM BAG LOADER MACHINE OPERATOR Has the patient had Daratumumab or Isatuximab in the past 6 months?->Unknown Chris Ricci NP LAB BLOOD BANK TEST ORDERA BLES Final Result [facility] Department [place] [address] * (ABNORMAL) POC Blood Gas and Chemistries, Venous - (12/24/2023 11:09 AM BAG LOADER MACHINE OPERATOR) pH, Geovani POC 7.48(H) 7.32 - 7.43 pCO2, geovani POC 41 40 - 50 mmHg [facility] pO2, geovani POC 48 mmHg [facility] Na, POC 136 135 - 145 mmol/L [facility] K POC 3.4 3.3 - 4.9 mmol/L [facility] Comment: Interpretive Data Not all point of care methods assess for hemolysis. Confirm with instrument and retest K+ if not consistent with clinical signs and symptoms. Current Interpretive Data was last revised on 2023. Cl, POC 101 97 - 110 mmol/L [facility] Ionized Ca, POC 4.66 4.50 - 5.10 mg/dL [facility] Glucose, POC 113 70 - 199 mg/dL [facility] Lactate, POC 0.9 0.7 - 2.2 mmol/L [facility] O2 Sat, Geovani POC (Donna) 76 % [facility] Base excess, POC 6.4 mmol/L [facility] HCO3, Geovani POC 30 20 - 30 mmol/L [facility] Hct, POC 26.0(L) 36.3 - 45.3 % [facility] Total Hb, POC 8.8(L) 11.9 - 15.5 g/dL [facility] Blood 12/24/2023 11:0 9 AM BAG LOADER MACHINE OPERATOR 12/24/2023 11:09 AM BAG LOADER MACHINE OPERATOR us Parmjit Meehan MD LAB POCT ORDERABLES - DEVICE Fin al Result [facility] Department [place] [address] * eGFR (12/22/2023 9:36 PM BAG LOADER MACHINE OPERATOR) eGFR 84 >=60 mL/min/1. 73 m2 Comment: Interpretive Data Reference Interval Normal ?>/= 90 mL/min/1.73m2 Mildly decreased* ? 60 - 89 mL/min/1.73m2 Mildly to moderately decreased ?45 - 59 mL/min/1.73m2 Moderately to severely decreased ??30 - 44 mL/min/1.73m2 Severely decreased ?15 - 29 mL/min/1.73m2 Kidney Failure ?< 15 ??mL/min/1.73m2 *Relative to young adult level Estimated glomerular filtration rate is determined by the 2020 CKD-EPI equation recommended by the National Kidney Foundation (A Unifying Approach to GFR Estimation: Recommendations of the NKF-ASK Task Force on Reassessing the Inclusion of Race in Diagnosing Kidney Disease, JASN 2020). The CKD-EPI equation should not be used for patients with unstable renal function and has not been validated in children and those over 70. Current interpretive data was last reviewed 2020. Blood 12/22/2023 9:36 PM BAG LOADER MACHINE OPERATOR 12/22/2023 9:52 PM BAG LOADER MACHINE OPERATOR us Parmjit Meehan MD LAB BLOOD ORDERABLES Final Resul t [facility] [place] [address] * (ABNORMAL) Differential, auto (12/22/2023 9:36 PM BAG LOADER MACHINE OPERATOR) Neutrophil abs 9.3(H) 1.5 - 6.5 K/cumm Imm gran abs 0.1 0.0 - 0.1 K/cumm [facility] Lymphocyte abs 2.2 0.8 - 3.3 K/cumm [facility] Monocyte abs 1.3(H) 0.2 - 0.8 K/cumm [facility] Eosinophil abs 0.2 0.0 - 0.5 K/cumm [facility] Basophil abs 0.1 0.0 - 0.1 K/cumm [facility] Neutrophil pct 71.3 % [facility] Comment: Interpretive Data Percent cell count reference ranges are not reported, since discordance with absolute values may lead to misinterpretation of CBC data. Current Interpretive Data was last revised on 2017. Imm gran pct 0.5 % [facility] Comment: Interpretive Data Percent cell count reference ranges are not reported, since discordance with absolute values may lead to misinterpretation of CBC data. Current Interpretive Data was last revised on 2017. Lymphocyte pct 16.6 % [facility] Comment: Interpretive Data Percent cell count reference ranges are not reported, since discordance with absolute values may lead to misinterpretation of CBC data. Current Interpretive Data was last revised on 2017. Monocyte pct 9.6 % [facility] Comment: Interpretive Data Percent cell count reference ranges are not reported, since discordance with absolute values may lead to misinterpretation of CBC data. Current Interpretive Data was last revised on 2017. Eosinophil pct 1.5 % [facility] Comment: Interpretive Data Percent cell count reference ranges are not reported, since discordance with absolute values may lead to misinterpretation of CBC data. Current Interpretive Data was last revised on 2017. Basophil pct 0.5 % [facility] Comment: Interpretive Data Percent cell count reference ranges are not reported, since discordance with absolute values may lead to misinterpretation of CBC data. Current Interpretive Data was last revised on 2017. Blood 12/22/2023 9:36 PM BAG LOADER MACHINE OPERATOR 12/22/2023 10:01 PM BAG LOADER MACHINE OPERATOR Parmjit Meehan MD LAB BLOOD ORDERABLES Final Resul t Performing Organization Address City/[facility]/ZIP Co de Phone Number [facility] Department [place] [address] * (ABNORMAL) CBC with auto differential (12/22/2023 9:36 PM BAG LOADER MACHINE OPERATOR) WBC 13.1(H) 3.8 - 9.9 K/cumm Hgb 8.5(L) 11.9 - 15.5 g/dL [facility] Hct 27.2(L) 35.6 - 45.5 % [facility] Plt 395 150 - 400 K/cumm [facility] MPV 9.4 9.1 - 12.3 fL [facility] RBC 3.20(L) 3.90 - 5.20 M/cumm [facility] MCV 85.0 81.3 - 96.4 fL [facility] MCH 26.6(L) 27.1 - 33.3 pg [facility] MCHC 31.3(L) 32.3 - 35.7 g/dL [facility] RDW CV 18.6(H) 11.1 - 14.9 % [facility] RDW SD 57.4(H) 35.7 - 48.1 fL [facility] NRBC abs 0.00 0.00 - 0.01 K/cumm [facility] Blood 12/22/2023 9:36 PM BAG LOADER MACHINE OPERATOR 12/22/2023 10:01 PM BAG LOADER MACHINE OPERATOR us Parmjit Meehan MD LAB BLOOD ORDERABLES Final Resul t Performing Organization Address [facility]/ZIP Co de Phone Number [facility] Department [place] [address] * (ABNORMAL) Protime-INR (12/22/2023 9:36 PM BAG LOADER MACHINE OPERATOR) Pathologist [facility] PT 15.6(H) 9.7 - 13.0 sec INR 1.43(H) 0.90 - 1.20 [facility] Comment: Interpretive data Oral anticoagulant therapeutic ranges: Venous thromboembolism prophylaxis or treatment: 2.0-3.0 CARDIOLOGY Standard range: 2.0-3.0 High-intensity range: 2.5-3.5 Refer to indication-specific guidelines for appropriate target ranges for prosthetic heart valve replacement. Current interpretive data was last revised on 2019. Blood 12/22/2023 9:36 PM BAG LOADER MACHINE OPERATOR 12/22/2023 9:50 PM BAG LOADER MACHINE OPERATOR Parmjit Meehan MD LAB BLOOD ORDERABLES Final Resul t Performing Organization Address City/[facility]/ZIP Co de Phone Number [facility] [place] [address] * Type and screen (12/22/2023 9:36 PM BAG LOADER MACHINE OPERATOR) Pathologist [facility] Maira, indirect Negative ABO Rh O Positive [facility] Blood 12/22/2023 9:36 PM BAG LOADER MACHINE OPERATOR 12/22/2023 9:47 PM BAG LOADER MACHINE OPERATOR Narrative [facility] - 12/22/2023 10:45 PM BAG LOADER MACHINE OPERATOR Has the patient had Daratumumab or Isatuximab in the past 6 months?->Unknown Parmjit Meehan MD LAB BLOOD BANK TEST [place] [address] * Magnesium (12/22/2023 9:36 PM BAG LOADER MACHINE OPERATOR) Pathologist [facility] Magnesium 1.8 1.4 - 2.5 mg/dL Blood 12/22/2023 9:36 PM BAG LOADER MACHINE OPERATOR 12/22/2023 9:52 PM BAG LOADER MACHINE OPERATOR Parmjit Meehan MD LAB BLOOD ORDERABLES Final Resul t Performing Organization Address City/[facility]/ZIP Co de Phone Number [facility] [place] [address] * (ABNORMAL) Renal function panel (12/22/2023 9:36 PM BAG LOADER MACHINE OPERATOR) Pathologist [facility] Sodium 133(L) 135 - 145 mmol/L Potassium, pl 4.7 3.3 - 4.9 mmol/L [facility] Chloride 98 97 - 110 mmol/L [facility] CO2 24 22 - 32 mmol/L [facility] Anion gap 11 2 - 15 mmol/L [facility] BUN 22 6 - 25 mg/dL [facility] Creatinine 0.78 0.60 - 1.10 mg/dL [facility] Glucose 174 70 - 199 mg/dL [facility] Comment: Interpretive Data Fasting glucose >/= 126 mg/dl is diagnostic for diabetes. ?? Fasting is defined as no caloric intake for at least 8 hours. Fasting glucose between 100 mg/dl to 125 mg/dl is diagnostic of prediabetes. In a patient with classic symptoms of hyperglycemia or hyperglycemic crisis, a random glucose >/= 200 mg/dl is diagnostic for diabetes. In the absence of unequivocal hyperglycemia, results should be confirmed by repeat testing. The classification and Diagnosis of Diabetes Diabetes Care 2021; 46: S19-S40. Current interpretive data was last revised 2022. Calcium 8.7 8.5 - 10.3 mg/dL [facility] Phosphorus, pl 3.6 2.3 - 4.5 mg/dL [facility] Albumin 2.9(L) 3.5 - 5.0 g/dL [facility] Blood 12/22/2023 9:36 PM BAG LOADER MACHINE OPERATOR 12/22/2023 9:52 PM BAG LOADER MACHINE OPERATOR Pramjit Meehan MD LAB BLOOD ORDERABLES Final Resul t Performing Organization Address City/[facility]/ZIP Co de Phone Number [facility] Department [place] [address] * Infection Prevention Angie auris PCR, surveillance Axilla/Groin (12/21/2023 9:32 PM BAG LOADER MACHINE OPERATOR) [facility] Angie auris DNA Not Detected Not Detected [facility] Comment: Interpretive Data Testing performed by [facility] using the [employer] MDX Angie auris assay. ??This assay detects DNA from Angie auris using Real-Time PCR. ??This assay is laboratory developed and is not cleared by the [place] Food and Drug Administration. ??The performance characteristics have been verified by the [facility]. Interpretive data was last reviewed on 06/11/2023 Axilla/Groin 12/21/2023 9:32 PM BAG LOADER MACHINE OPERATOR 12/21/2023 10:06 PM BAG LOADER MACHINE OPERATOR Familia So MD LAB MICROBIOLOGY - GENERAL OR DERABLES Final Result [facility] [place] [address] [facility] * eGFR (12/19/2023 10:29 PM CDT) [facility] eGFR >90 >=60 mL/min/1. 73 m2 Comment: Interpretive Data Reference Interval Normal ?>/= 90 mL/min/1.73m2 Mildly decreased* ? 60 - 89 mL/min/1.73m2 Mildly to moderately decreased ?45 - 59 mL/min/1.73m2 Moderately to severely decreased ??30 - 44 mL/min/1.73m2 Severely decreased ?15 - 29 mL/min/1.73m2 Kidney Failure ?< 15 ??mL/min/1.73m2 *Relative to young adult level Estimated glomerular filtration rate is determined by the 2020 CKD-EPI equation recommended by the National Kidney Foundation (A Unifying Approach to GFR Estimation: Recommendations of the NKF-ASK Task Force on Reassessing the Inclusion of Race in Diagnosing Kidney Disease, JASN 2020). The CKD-EPI equation should not be used for patients with unstable renal function and has not been validated in children and those over 70. Current interpretive data was last reviewed 2020. Blood 12/19/2023 10:2 9 PM CDT 12/19/2023 11:03 PM CDT us Álvaro Radford MD LAB BLOOD ORDERABLES Final Result [facility] Department [place] [address] * (ABNORMAL) Differential, auto (12/19/2023 10:29 PM CDT) Neutrophil abs 6.7(H) 1.5 - 6.5 K/cumm Imm gran abs 0.1 0.0 - 0.1 K/cumm [facility] Lymphocyte abs 2.2 0.8 - 3.3 K/cumm [facility] Monocyte abs 1.1(H) 0.2 - 0.8 K/cumm [facility] Eosinophil abs 0.3 0.0 - 0.5 K/cumm [facility] Basophil abs 0.1 0.0 - 0.1 K/cumm [facility] Neutrophil pct 64.7 % [facility] Comment: Interpretive Data Percent cell count reference ranges are not reported, since discordance with absolute values may lead to misinterpretation of CBC data. Current Interpretive Data was last revised on 2017. Imm gran pct 0.5 % [facility] Comment: Interpretive Data Percent cell count reference ranges are not reported, since discordance with absolute values may lead to misinterpretation of CBC data. Current Interpretive Data was last revised on 2017. Lymphocyte pct 20.7 % [facility] Comment: Interpretive Data Percent cell count reference ranges are not reported, since discordance with absolute values may lead to misinterpretation of CBC data. Current Interpretive Data was last revised on 2017. Monocyte pct 10.9 % [facility] Comment: Interpretive Data Percent cell count reference ranges are not reported, since discordance with absolute values may lead to misinterpretation of CBC data. Current Interpretive Data was last revised on 2017. Eosinophil pct 2.6 % [facility] Comment: Interpretive Data Percent cell count reference ranges are not reported, since discordance with absolute values may lead to misinterpretation of CBC data. Current Interpretive Data was last revised on 2017. Basophil pct 0.6 % [facility] Comment: Interpretive Data Percent cell count reference ranges are not reported, since discordance with absolute values may lead to misinterpretation of CBC data. Current Interpretive Data was last revised on 2017. Blood 12/19/2023 10:2 9 PM CDT 12/19/2023 11:03 PM CDT us Álvaro Radford MD LAB BLOOD ORDERABLES Final Result [facility] Department [place] [address] * (ABNORMAL) CBC with auto differential (12/19/2023 10:29 PM CDT) WBC 10.4(H) 3.8 - 9.9 K/cumm Hgb 7.7(L) 11.9 - 15.5 g/dL [facility] Hct 25.3(L) 35.6 - 45.5 % [facility] Plt 337 150 - 400 K/cumm [facility] MPV 9.8 9.1 - 12.3 fL [facility] RBC 2.93(L) 3.90 - 5.20 M/cumm [facility] MCV 86.3 81.3 - 96.4 fL [facility] MCH 26.3(L) 27.1 - 33.3 pg [facility] MCHC 30.4(L) 32.3 - 35.7 g/dL [facility] RDW CV 18.9(H) 11.1 - 14.9 % [facility] RDW SD 60.0(H) 35.7 - 48.1 fL [facility] NRBC abs 0.00 0.00 - 0.01 K/cumm [facility] Blood 12/19/2023 10:2 9 PM CDT 12/19/2023 11:03 PM CDT Álvaro Radford MD LAB BLOOD ORDERABLES Final Result Performing Organization Address [facility] Co de Phone Number [facility] [place] [address] * Type and screen (12/19/2023 10:29 PM CDT) ABO Rh O Positive Maira, indirect Negative [facility] Blood 12/19/2023 10:2 9 PM CDT 12/19/2023 11:07 PM CDT Narrative [facility] - 12/20/2023 12:23 AM CDT Has the patient had Daratumumab or Isatuximab in the past 6 months?->Unknown Result [facility] Álvaro Radford MD LAB BLOOD BANK TEST ORDERAB LES Final Result Performing Organization Address [facility] Co de Phone Number [facility] [place] [employer] [address] * Magnesium (12/19/2023 10:29 PM CDT) Pathologist [facility] Magnesium 1.8 1.4 - 2.5 mg/dL Blood 12/19/2023 10:2 9 PM CDT 12/19/2023 11:03 PM CDT Álvaro Radford MD LAB BLOOD ORDERABLES Final Result Performing Organization Address [facility] Co de Phone Number [facility] [place] [address] * (ABNORMAL) Renal function panel (12/19/2023 10:29 PM CDT) Sodium 135 135 - 145 mmol/L Potassium, pl 4.6 3.3 - 4.9 mmol/L [facility] Chloride 101 97 - 110 mmol/L [facility] CO2 26 22 - 32 mmol/L [facility] Anion gap 8 2 - 15 mmol/L [facility] BUN 22 6 - 25 mg/dL [facility] Creatinine 0.73 0.60 - 1.10 mg/dL [facility] Glucose 185 70 - 199 mg/dL [facility] Comment: Interpretive Data Fasting glucose >/= 126 mg/dl is diagnostic for diabetes. ?? Fasting is defined as no caloric intake for at least 8 hours. Fasting glucose between 100 mg/dl to 125 mg/dl is diagnostic of prediabetes. In a patient with classic symptoms of hyperglycemia or hyperglycemic crisis, a random glucose >/= 200 mg/dl is diagnostic for diabetes. In the absence of unequivocal hyperglycemia, results should be confirmed by repeat testing. The classification and Diagnosis of Diabetes Diabetes Care 2021; 46: S19-S40. Current interpretive data was last revised 2022. Calcium 8.6 8.5 - 10.3 mg/dL [facility] Phosphorus, pl 3.3 2.3 - 4.5 mg/dL [facility] Albumin 2.6(L) 3.5 - 5.0 g/dL [facility] Blood 12/19/2023 10:2 9 PM CDT 12/19/2023 11:03 PM CDT us Álvaro Radford MD LAB BLOOD ORDERABLES Final Result [facility] Department [place] [address] * (ABNORMAL) Differential, auto (12/17/2023 8:27 PM CDT) Neutrophil abs 8.0(H) 1.5 - 6.5 K/cumm Imm gran abs 0.0 0.0 - 0.1 K/cumm [facility] Lymphocyte abs 1.7 0.8 - 3.3 K/cumm [facility] Monocyte abs 1.0(H) 0.2 - 0.8 K/cumm [facility] Eosinophil abs 0.1 0.0 - 0.5 K/cumm [facility] Basophil abs 0.1 0.0 - 0.1 K/cumm [facility] Neutrophil pct 72.9 % [facility] Comment: Interpretive Data Percent cell count reference ranges are not reported, since discordance with absolute values may lead to misinterpretation of CBC data. Current Interpretive Data was last revised on 2017. Imm gran pct 0.4 % [facility] Comment: Interpretive Data Percent cell count reference ranges are not reported, since discordance with absolute values may lead to misinterpretation of CBC data. Current Interpretive Data was last revised on 2017. Lymphocyte pct 15.5 % [facility] Comment: Interpretive Data Percent cell count reference ranges are not reported, since discordance with absolute values may lead to misinterpretation of CBC data. Current Interpretive Data was last revised on 2017. Monocyte pct 9.4 % [facility] Comment: Interpretive Data Percent cell count reference ranges are not reported, since discordance with absolute values may lead to misinterpretation of CBC data. Current Interpretive Data was last revised on 2017. Eosinophil pct 1.3 % [facility] Comment: Interpretive Data Percent cell count reference ranges are not reported, since discordance with absolute values may lead to misinterpretation of CBC data. Current Interpretive Data was last revised on 2017. Basophil pct 0.5 % [facility] Comment: Interpretive Data Percent cell count reference ranges are not reported, since discordance with absolute values may lead to misinterpretation of CBC data. Current Interpretive Data was last revised on 2017. Blood 12/17/2023 8:27 PM CDT 12/17/2023 9:02 PM CDT us Parmjit Meehan MD LAB BLOOD ORDERABLES Final Resul t [facility] [place] [address] * (ABNORMAL) CBC with auto differential (12/17/2023 8:27 PM CDT) [facility] WBC 11.0(H) 3.8 - 9.9 K/cumm Hgb 8.1(L) 11.9 - 15.5 g/dL [facility] Hct 27.4(L) 35.6 - 45.5 % [facility] Plt 334 150 - 400 K/cumm [facility] MPV 10.7 9.1 - 12.3 fL [facility] RBC 3.20(L) 3.90 - 5.20 M/cumm [facility] MCV 85.6 81.3 - 96.4 fL [facility] MCH 25.3(L) 27.1 - 33.3 pg [facility] MCHC 29.6(L) 32.3 - 35.7 g/dL [facility] RDW CV 19.2(H) 11.1 - 14.9 % [facility] RDW SD 60.4(H) 35.7 - 48.1 fL [facility] NRBC abs 0.00 0.00 - 0.01 K/cumm [facility] Blood 12/17/2023 8:27 PM CDT 12/17/2023 9:02 PM CDT us Parmjit Meehan MD LAB BLOOD ORDERABLES Final Resul t [facility] [place] [address] * eGFR (12/16/2023 10:51 PM CDT) [facility] eGFR 87 >=60 mL/min/1. 73 m2 Comment: Interpretive Data Reference Interval Normal ?>/= 90 mL/min/1.73m2 Mildly decreased* ? 60 - 89 mL/min/1.73m2 Mildly to moderately decreased ?45 - 59 mL/min/1.73m2 Moderately to severely decreased ??30 - 44 mL/min/1.73m2 Severely decreased ?15 - 29 mL/min/1.73m2 Kidney Failure ?< 15 ??mL/min/1.73m2 *Relative to young adult level Estimated glomerular filtration rate is determined by the 2020 CKD-EPI equation recommended by the National Kidney Foundation (A Unifying Approach to GFR Estimation: Recommendations of the NKF-ASK Task Force on Reassessing the Inclusion of Race in Diagnosing Kidney Disease, JASN 202). The CKD-EPI equation should not be used for patients with unstable renal function and has not been validated in children and those over 70. Current interpretive data was last reviewed 2020. Blood 12/16/2023 10:5 1 PM CDT 12/16/2023 11:11 PM CDT us Álvaro Radford MD LAB BLOOD ORDERABLES Final Result [facility] Department of Laboratories [place], [place] [id number] * (ABNORMAL) Differential, auto (12/16/2023 10:51 PM CDT) Neutrophil abs 7.1(H) 1.5 - 6.5 K/cumm Imm gran abs 0.1 0.0 - 0.1 K/cumm [facility] Lymphocyte abs 2.3 0.8 - 3.3 K/cumm [facility] Monocyte abs 1.1(H) 0.2 - 0.8 K/cumm [facility] Eosinophil abs 0.3 0.0 - 0.5 K/cumm [facility] Basophil abs 0.1 0.0 - 0.1 K/cumm [facility] Neutrophil pct 64.9 % [facility] Comment: Interpretive Data Percent cell count reference ranges are not reported, since discordance with absolute values may lead to misinterpretation of CBC data. Current Interpretive Data was last revised on 2017. Imm gran pct 0.6 % [facility] Comment: Interpretive Data Percent cell count reference ranges are not reported, since discordance with absolute values may lead to misinterpretation of CBC data. Current Interpretive Data was last revised on 2017. Lymphocyte pct 21.5 % [facility] Comment: Interpretive Data Percent cell count reference ranges are not reported, since discordance with absolute values may lead to misinterpretation of CBC data. Current Interpretive Data was last revised on 2017. Monocyte pct 9.9 % [facility] Comment: Interpretive Data Percent cell count reference ranges are not reported, since discordance with absolute values may lead to misinterpretation of CBC data. Current Interpretive Data was last revised on 2017. Eosinophil pct 2.5 % [facility] Comment: Interpretive Data Percent cell count reference ranges are not reported, since discordance with absolute values may lead to misinterpretation of CBC data. Current Interpretive Data was last revised on 2017. Basophil pct 0.6 % [facility] Comment: Interpretive Data Percent cell count reference ranges are not reported, since discordance with absolute values may lead to misinterpretation of CBC data. Current Interpretive Data was last revised on 2017. Blood 12/16/2023 10:5 1 PM CDT 12/16/2023 11:13 PM CDT us Álvaor Radford MD LAB BLOOD ORDERABLES Final Result [facility] Department [place] [address] * (ABNORMAL) CBC with auto differential (12/16/2023 10:51 PM CDT) WBC 10.9(H) 3.8 - 9.9 K/cumm Hgb 7.7(L) 11.9 - 15.5 g/dL [facility] Hct 25.8(L) 35.6 - 45.5 % [facility] Plt 347 150 - 400 K/cumm [facility] MPV 10.1 9.1 - 12.3 fL [facility] RBC 3.00(L) 3.90 - 5.20 M/cumm [facility] MCV 86.0 81.3 - 96.4 fL [facility] MCH 25.7(L) 27.1 - 33.3 pg [facility] MCHC 29.8(L) 32.3 - 35.7 g/dL [facility] RDW CV 19.5(H) 11.1 - 14.9 % [facility] RDW SD 61.1(H) 35.7 - 48.1 fL [facility] NRBC abs 0.00 0.00 - 0.01 K/cumm [facility] Blood 12/16/2023 10:5 1 PM CDT 12/16/2023 11:13 PM CDT Álvaro Radford MD LAB BLOOD ORDERABLES Final Result Performing Organization Address [facility] Co de Phone Number [facility] [employer] [place] [employer] [place] [address] * Type and screen (12/16/2023 10:51 PM CDT) ABO Rh O Positive Maira, indirect Negative [facility] Blood 12/16/2023 10:5 1 PM CDT 12/16/2023 11:07 PM CDT Narrative [facility] - 12/17/2023 12:31 AM CDT Has the patient had Daratumumab or Isatuximab in the past 6 months?->Unknown Álvaro Radford MD LAB BLOOD BANK TEST ORDERAB LES Final Result Performing Organization Address City/[facility]/ZIP Co de Phone Number [facility] [place] [employer] [place] [address] * Magnesium (12/16/2023 10:51 PM CDT) Magnesium 1.7 1.4 - 2.5 mg/dL Blood 12/16/2023 10:5 1 PM CDT 12/16/2023 11:11 PM CDT Álvaro Radford MD LAB BLOOD ORDERABLES Final Result [facility] Department [place] [address] * (ABNORMAL) Renal function panel (12/16/2023 10:51 PM CDT) Pathologist [facility] Sodium 135 135 - 145 mmol/L Potassium, pl 4.6 3.3 - 4.9 mmol/L [facility] Chloride 101 97 - 110 mmol/L [facility] CO2 28 22 - 32 mmol/L [facility] Anion gap 6 2 - 15 mmol/L [facility] BUN 21 6 - 25 mg/dL [facility] Creatinine 0.76 0.60 - 1.10 mg/dL [facility] Glucose 139 70 - 199 mg/dL [facility] Comment: Interpretive Data Fasting glucose >/= 126 mg/dl is diagnostic for diabetes. ?? Fasting is defined as no caloric intake for at least 8 hours. Fasting glucose between 100 mg/dl to 125 mg/dl is diagnostic of prediabetes. In a patient with classic symptoms of hyperglycemia or hyperglycemic crisis, a random glucose >/= 200 mg/dl is diagnostic for diabetes. In the absence of unequivocal hyperglycemia, results should be confirmed by repeat testing. The classification and Diagnosis of Diabetes Diabetes Care 2021; 46: S19-S40. Current interpretive data was last revised 2022. Calcium 8.4(L) 8.5 - 10.3 mg/dL [facility] Phosphorus, pl 3.3 2.3 - 4.5 mg/dL [facility] Albumin 2.8(L) 3.5 - 5.0 g/dL [facility] Blood 12/16/2023 10:5 1 PM CDT 12/16/2023 11:11 PM CDT Álvaro Radford MD LAB BLOOD ORDERABLES Final Result [facility] [place] [employer] [place] [address] * POCT glucose (12/16/2023 8:38 PM CDT) Glucose, POC 192 70 - 199 mg/dL Blood 12/16/2023 8:38 PM CDT 12/16/2023 8:38 PM CDT Parmjit Meehan MD LAB POCT ORDERABLES - DEVICE Fin al Result Performing Organization Address City/[facility] [place] [address] * POCT glucose (12/16/2023 4:34 PM CDT) Glucose, POC 164 70 - 199 mg/dL Blood 12/16/2023 4:34 PM CDT 12/16/2023 4:34 PM CDT Parmjit Meehan MD LAB POCT ORDERABLES - DEVICE Fin al Result Performing Organization Address City/[facility] Co de Phone Number [facility] [place] [address] * POCT glucose (12/16/2023 11:53 AM CDT) Glucose, POC 188 70 - 199 mg/dL Blood 12/16/2023 11:5 3 AM CDT 12/16/2023 11:53 AM CDT Parmjit Meehan MD LAB POCT ORDERABLES - DEVICE Fin al Result Performing Organization Address City/[facility] [place] [address] * POCT glucose (12/16/2023 8:13 AM CDT) Glucose, POC 127 70 - 199 mg/dL Blood 12/16/2023 8:13 AM CDT 12/16/2023 8:13 AM CDT us Parmjit Meehan MD LAB POCT ORDERABLES - DEVICE Fin al Result Performing Organization Address [facility] de Phone Number [facility] [place] [address] * Infection Prevention Angie auris PCR, surveillance Axilla/Groin (12/15/2023 8:46 PM CDT) Angie auris DNA Not Detected Not Detected [facility] Comment: Interpretive Data Testing performed by [facility] using the Lateral SVison MDX Angie auris assay. ??This assay detects DNA from Angie auris using Real-Time PCR. ??This assay is laboratory developed and is not cleared by the [facility] Food and Drug Administration. ??The performance characteristics have been verified by the [facility]. Interpretive data was last reviewed on 06/11/2023 Axilla/Groin 12/15/2023 8:46 PM CDT 12/15/2023 8:57 PM CDT us Familia So MD LAB MICROBIOLOGY - GENERAL OR DERABLES Final Result Performing Organization Address [facility] de Phone Number [facility] Department [place] [address] [facility] * (ABNORMAL) POCT glucose (12/15/2023 8:03 PM CDT) Glucose, POC 210(H) 70 - 199 mg/dL Blood 12/15/2023 8:03 PM CDT 12/15/2023 8:03 PM CDT Álvaro Radford MD LAB POCT ORDERABLES - DEVIC E Final Result Performing Organization Address City/[facility] [place] [address] * POCT glucose (12/15/2023 5:20 PM CDT) Glucose, POC 172 70 - 199 mg/dL Blood 12/15/2023 5:20 PM CDT 12/15/2023 5:20 PM CDT Álvaro Radford MD LAB POCT ORDERABLES - DEVIC E Final Result Performing Organization Address [facility] [place] [address] * POCT glucose (12/15/2023 12:12 PM CDT) Glucose, POC 169 70 - 199 mg/dL Blood 12/15/2023 12:1 2 PM CDT 12/15/2023 12:12 PM CDT Álvaro Radford MD LAB POCT ORDERABLES - DEVIC E Final Result Performing Organization Address [facility] [place] [address] * POCT glucose (12/15/2023 8:11 AM CDT) Glucose, POC 129 70 - 199 mg/dL Blood 12/15/2023 8:11 AM CDT 12/15/2023 8:11 AM CDT us Álvaro Radford MD LAB POCT ORDERABLES - DEVIC E Final Result Performing Organization Address City/[facility]/ZIP Co de Phone Number [facility] [place] [employer] [place] [address] * POCT glucose (12/14/2023 8:37 PM CDT) Glucose, POC 124 70 - 199 mg/dL Blood 12/14/2023 8:37 PM CDT 12/14/2023 8:37 PM CDT Álvaro Radford MD LAB POCT ORDERABLES - DEVIC E Final Result Performing Organization Address [facility] de Phone Number [facility] [place] [employer] [place] [address] * (ABNORMAL) POCT glucose (12/14/2023 5:32 PM CDT) Glucose, POC 214(H) 70 - 199 mg/dL Blood 12/14/2023 5:32 PM CDT 12/14/2023 5:32 PM CDT Álvaro Radford MD LAB POCT ORDERABLES - DEVIC E Final Result Performing Organization Address [facility] de Phone Number [facility] [place] [employer] [address] * POCT glucose (12/14/2023 11:23 AM CDT) Glucose, POC 185 70 - 199 mg/dL Blood 12/14/2023 11:2 3 AM CDT 12/14/2023 11:23 AM CDT Álvaro Radford MD LAB POCT ORDERABLES - DEVIC E Final Result Performing Organization Address [facility] de Phone Number [facility] [place] [employer] [place] [address] * POCT glucose (12/14/2023 7:47 AM CDT) Glucose, POC 128 70 - 199 mg/dL Blood 12/14/2023 7:47 AM CDT 12/14/2023 7:47 AM CDT us Álvaro Radford MD LAB POCT ORDERABLES - DEVIC E Final Result Performing Organization Address [facility] Co de Phone Number GO ROBERT Abdullahi [facility] Department [place] [address] * eGFR (12/13/2023 9:51 PM CDT) eGFR 84 >=60 mL/min/1. 73 m2 Comment: Interpretive Data Reference Interval Normal ?>/= 90 mL/min/1.73m2 Mildly decreased* ? 60 - 89 mL/min/1.73m2 Mildly to moderately decreased ?45 - 59 mL/min/1.73m2 Moderately to severely decreased ??30 - 44 mL/min/1.73m2 Severely decreased ?15 - 29 mL/min/1.73m2 Kidney Failure ?< 15 ??mL/min/1.73m2 *Relative to young adult level Estimated glomerular filtration rate is determined by the 2020 CKD-EPI equation recommended by the National Kidney Foundation (A Unifying Approach to GFR Estimation: Recommendations of the NKF-ASK Task Force on Reassessing the Inclusion of Race in Diagnosing Kidney Disease, JASN 2020). The CKD-EPI equation should not be used for patients with unstable renal function and has not been validated in children and those over 70. Current interpretive data was last reviewed 2020. Blood 12/13/2023 9:51 PM CDT 12/13/2023 10:18 PM CDT us Álvaro Radford MD LAB BLOOD ORDERABLES Final Result Performing Organization Address [facility] Co de Phone Number GO ROBERT Abdullah[facility] Department [place] [address] * Differential, auto (12/13/2023 9:51 PM CDT) Neutrophil abs 5.2 1.5 - 6.5 K/cumm Imm gran abs 0.0 0.0 - 0.1 K/cumm [facility] Lymphocyte abs 2.4 0.8 - 3.3 K/cumm [facility] Monocyte abs 0.8 0.2 - 0.8 K/cumm [facility] Eosinophil abs 0.2 0.0 - 0.5 K/cumm [facility] Basophil abs 0.1 0.0 - 0.1 [facility] Neutrophil pct 59.8 % [facility] Comment: Interpretive Data Percent cell count reference ranges are not reported, since discordance with absolute values may lead to misinterpretation of CBC data. Current Interpretive Data was last revised on 2017. Imm gran pct 0.2 % [facility] Comment: Interpretive Data Percent cell count reference ranges are not reported, since discordance with absolute values may lead to misinterpretation of CBC data. Current Interpretive Data was last revised on 2017. Lymphocyte pct 27.8 % [facility] Comment: Interpretive Data Percent cell count reference ranges are not reported, since discordance with absolute values may lead to misinterpretation of CBC data. Current Interpretive Data was last revised on 2017. Monocyte pct 8.8 % [facility] Comment: Interpretive Data Percent cell count reference ranges are not reported, since discordance with absolute values may lead to misinterpretation of CBC data. Current Interpretive Data was last revised on 2017. Eosinophil pct 2.8 % [facility] Comment: Interpretive Data Percent cell count reference ranges are not reported, since discordance with absolute values may lead to misinterpretation of CBC data. Current Interpretive Data was last revised on 2017. Basophil pct 0.6 % [facility] Comment: Interpretive Data Percent cell count reference ranges are not reported, since discordance with absolute values may lead to misinterpretation of CBC data. Current Interpretive Data was last revised on 2017. Blood 12/13/2023 9:51 PM CDT 12/13/2023 10:19 PM CDT Álvaro Radford MD LAB BLOOD ORDERABLES Final Result Performing Organization Address City/[facility]/ZIP Co de Phone Number [facility] [place] [address] * (ABNORMAL) CBC with auto differential (12/13/2023 9:51 PM CDT) Pathologist [facility] WBC 8.7 3.8 - 9.9 K/cumm Hgb 7.7(L) 11.9 - 15.5 g/dL [facility] Hct 25.4(L) 35.6 - 45.5 % [facility] Plt 354 150 - 400 K/cumm [facility] MPV 10.4 9.1 - 12.3 fL [facility] RBC 2.93(L) 3.90 - 5.20 M/cumm [facility] MCV 86.7 81.3 - 96.4 fL [facility] MCH 26.3(L) 27.1 - 33.3 pg [facility] MCHC 30.3(L) 32.3 - 35.7 g/dL [facility] RDW CV 19.2(H) 11.1 - 14.9 % [facility] RDW SD 60.9(H) 35.7 - 48.1 fL [facility] NRBC abs 0.00 0.00 - 0.01 K/cumm [facility] Blood 12/13/2023 9:51 PM CDT 12/13/2023 10:19 PM CDT Álvaro Radford MD LAB BLOOD ORDERABLES Final Result [facility] [place] [address] * Type and screen (12/13/2023 9:51 PM CDT) Pathologist [facility] Maira, indirect Negative ABO Rh O Positive [facility] Blood 12/13/2023 9:51 PM CDT 12/13/2023 10:18 PM CDT Narrative [facility] - 12/13/2023 11:24 PM CDT Has the patient had Daratumumab or Isatuximab in the past 6 months?->Unknown Álvaro Radford MD LAB BLOOD BANK TEST ORDERAB LES Final Result Performing Organization Address [facility]/ZIP Co de Phone Number [facility] [place] [employer] [place] [address] * Magnesium (12/13/2023 9:51 PM CDT) [facility] Magnesium 2.0 1.4 - 2.5 mg/dL Blood 12/13/2023 9:51 PM CDT 12/13/2023 10:18 PM CDT Álvaro Radford MD LAB BLOOD ORDERABLES Final Result Performing Organization Address [facility] de Phone Number [facility] [place] [employer] [place] [address] * (ABNORMAL) Renal function panel (12/13/2023 9:51 PM CDT) Pathologist [facility] Sodium 137 135 - 145 mmol/L Potassium, pl 4.5 3.3 - 4.9 mmol/L [facility] Chloride 103 97 - 110 mmol/L [facility] CO2 26 22 - 32 mmol/L [facility] Anion gap 8 2 - 15 mmol/L [facility] BUN 16 6 - 25 mg/dL [facility] Creatinine 0.78 0.60 - 1.10 mg/dL [facility] Glucose 127 70 - 199 mg/dL [facility] Comment: Interpretive Data Fasting glucose >/= 126 mg/dl is diagnostic for diabetes. ?? Fasting is defined as no caloric intake for at least 8 hours. Fasting glucose between 100 mg/dl to 125 mg/dl is diagnostic of prediabetes. In a patient with classic symptoms of hyperglycemia or hyperglycemic crisis, a random glucose >/= 200 mg/dl is diagnostic for diabetes. In the absence of unequivocal hyperglycemia, results should be confirmed by repeat testing. The classification and Diagnosis of Diabetes Diabetes Care 2021; 46: S19-S40. Current interpretive data was last revised 2022. Calcium 8.4(L) 8.5 - 10.3 mg/dL [facility] Phosphorus, pl 3.0 2.3 - 4.5 mg/dL [facility] Albumin 2.5(L) 3.5 - 5.0 g/dL [facility] Blood 12/13/2023 9:51 PM CDT 12/13/2023 10:18 PM CDT us Álvaro Radford MD LAB BLOOD ORDERABLES Final Result Performing Organization Address [facility] Co de Phone Number [facility] [place] [address] * POCT glucose (12/13/2023 8:24 PM CDT) Glucose, POC 163 70 - 199 mg/dL Blood 12/13/2023 8:24 PM CDT 12/13/2023 8:24 PM CDT us Álvaro Radford MD LAB POCT ORDERABLES - DEVIC E Final Result Performing Organization Address [facility] de Phone Number [facility] [place] [employer] [place] [address] * POCT glucose (12/13/2023 4:31 PM CDT) Glucose, POC 128 70 - 199 mg/dL Blood 12/13/2023 4:31 PM CDT 12/13/2023 4:31 PM CDT us Álvaro Radford MD LAB POCT ORDERABLES - DEVIC E Final Result Performing Organization Address [facility] de Phone Number [facility] [place] [address] * (ABNORMAL) POCT glucose (12/13/2023 11:07 AM CDT) Glucose, POC 213(H) 70 - 199 mg/dL Blood 12/13/2023 11:0 7 AM CDT 12/13/2023 11:07 AM CDT Álvaro Radford MD LAB POCT ORDERABLES - DEVIC E Final Result Performing Organization Address [facility] [place] [address] * POCT glucose (12/13/2023 7:48 AM CDT) Glucose, POC 121 70 - 199 mg/dL Blood 12/13/2023 7:48 AM CDT 12/13/2023 7:48 AM CDT Álvaro Radford MD LAB POCT ORDERABLES - DEVIC E Final Result Performing Organization Address City/[facility] [place] [address] * POCT glucose (12/12/2023 7:59 PM CDT) Glucose, POC 149 70 - 199 mg/dL Blood 12/12/2023 7:59 PM CDT 12/12/2023 7:59 PM CDT Álvaro Radford MD LAB POCT ORDERABLES - DEVIC E Final Result Performing Organization Address City/[facility] [place] [address] * POCT glucose (12/12/2023 5:09 PM CDT) Glucose, POC 181 70 - 199 mg/dL Blood 12/12/2023 5:09 PM CDT 12/12/2023 5:09 PM CDT Álvaro Radford MD LAB POCT ORDERABLES - DEVIC E Final Result Performing Organization Address [facility] Co de Phone Number [facility] [place] [employer] [place] [address] * (ABNORMAL) POCT glucose (12/12/2023 11:19 AM CDT) Glucose, POC 206(H) 70 - 199 mg/dL Comment:Glu2: RN/MD Notified Glucose comment 1 Glu2: RN/MD Notified [facility] Blood 12/12/2023 11:1 9 AM CDT 12/12/2023 11:19 AM CDT Álvaro Radford MD LAB POCT ORDERABLES - DEVIC E Final Result Performing Organization Address [facility] [place] [address] * POCT glucose (12/12/2023 7:24 AM CDT) Pathologist [facility] Glucose, POC 114 70 - 199 mg/dL Blood 12/12/2023 7:24 AM CDT 12/12/2023 7:24 AM CDT Álvaro Radford MD LAB POCT ORDERABLES - DEVIC E Final Result Performing Organization Address City/[facility] [place] [address] * eGFR (12/11/2023 10:15 PM CDT) Pathologist [facility] eGFR 82 >=60 mL/min/1. 73 m2 Comment: Interpretive Data Reference Interval Normal ?>/= 90 mL/min/1.73m2 Mildly decreased* ? 60 - 89 mL/min/1.73m2 Mildly to moderately decreased ?45 - 59 mL/min/1.73m2 Moderately to severely decreased ??30 - 44 mL/min/1.73m2 Severely decreased ?15 - 29 mL/min/1.73m2 Kidney Failure ?< 15 ??mL/min/1.73m2 *Relative to young adult level Estimated glomerular filtration rate is determined by the 2020 CKD-EPI equation recommended by the National Kidney Foundation (A Unifying Approach to GFR Estimation: Recommendations of the NKF-ASK Task Force on Reassessing the Inclusion of Race in Diagnosing Kidney Disease, JASN 2020). The CKD-EPI equation should not be used for patients with unstable renal function and has not been validated in children and those over 70. Current interpretive data was last reviewed 2020. Blood 12/11/2023 10:1 5 PM CDT 12/11/2023 11:02 PM CDT us Álvaro Radford MD LAB BLOOD ORDERABLES Final Result Performing Organization Address City/State/[facility] Co de Phone Number [facility] [place] [address] * Differential, auto (12/11/2023 10:15 PM CDT) Pathologist [facility] Neutrophil abs 5.0 1.5 - 6.5 K/cumm Imm gran abs 0.0 0.0 - 0.1 K/cumm [facility] Lymphocyte abs 2.1 0.8 - 3.3 K/cumm [facility] Monocyte abs 0.7 0.2 - 0.8 K/cumm [facility] Eosinophil abs 0.3 0.0 - 0.5 K/cumm [facility] Basophil abs 0.1 0.0 - 0.1 K/cumm [facility] Neutrophil pct 61.1 % [facility] Comment: Interpretive Data Percent cell count reference ranges are not reported, since discordance with absolute values may lead to misinterpretation of CBC data. Current Interpretive Data was last revised on 2017. Imm gran pct 0.5 % [facility] Comment: Interpretive Data Percent cell count reference ranges are not reported, since discordance with absolute values may lead to misinterpretation of CBC data. Current Interpretive Data was last revised on 2017. Lymphocyte pct 25.9 % [facility] Comment: Interpretive Data Percent cell count reference ranges are not reported, since discordance with absolute values may lead to misinterpretation of CBC data. Current Interpretive Data was last revised on 2017. Monocyte pct 8.7 % [facility] Comment: Interpretive Data Percent cell count reference ranges are not reported, since discordance with absolute values may lead to misinterpretation of CBC data. Current Interpretive Data was last revised on 2017. Eosinophil pct 3.2 % [facility] Comment: Interpretive Data Percent cell count reference ranges are not reported, since discordance with absolute values may lead to misinterpretation of CBC data. Current Interpretive Data was last revised on 2017. Basophil pct 0.6 % [facility] Comment: Interpretive Data Percent cell count reference ranges are not reported, since discordance with absolute values may lead to misinterpretation of CBC data. Current Interpretive Data was last revised on 2017. Blood 12/11/2023 10:1 5 PM CDT 12/11/2023 11:07 PM CDT us Maxime Lee MD LAB BLOOD ORDERABLES Final R esult GO ROBERT [facility] Department [place] [address] * (ABNORMAL) CBC with auto differential (12/11/2023 10:15 PM CDT) WBC 8.2 3.8 - 9.9 K/cumm Hgb 7.3(L) 11.9 - 15.5 g/dL [facility] Hct 25.3(L) 35.6 - 45.5 % [facility] Plt 290 150 - 400 K/cumm [facility] MPV 10.8 9.1 - 12.3 fL [facility] RBC 2.90(L) 3.90 - 5.20 M/cumm [facility] MCV 87.2 81.3 - 96.4 fL [facility] MCH 25.2(L) 27.1 - 33.3 pg [facility] MCHC 28.9(L) 32.3 - 35.7 g/dL [facility] RDW CV 19.1(H) 11.1 - 14.9 % [facility] RDW SD 61.1(H) 35.7 - 48.1 fL [facility] NRBC abs 0.00 0.00 - 0.01 K/cumm [facility] Blood 12/11/2023 10:1 5 PM CDT 12/11/2023 11:07 PM CDT us Maxime Lee MD LAB BLOOD ORDERABLES Final R esult Performing Organization Address City/[facility]/ZIP Co de Phone Number [facility] [employer] [place] [employer] [place] [address] * Magnesium (12/11/2023 10:15 PM CDT) Magnesium 2.0 1.4 - 2.5 mg/dL Blood 12/11/2023 10:1 5 PM CDT 12/11/2023 11:02 PM CDT us Álvaro Radford MD LAB BLOOD ORDERABLES Final Result Performing Organization Address City/[facility]/ZIP Co de Phone Number [facility] [place] [employer] [place] [address] * (ABNORMAL) Hepatic function panel (12/11/2023 10:15 PM CDT) Bilirubin, total <0.2 0.1 - 1.2 mg/dL Bilirubin, direct <0.2 0.1 - 0.3 mg/dL [facility] Protein, pl 6.8 6.5 - 8.5 g/dL [facility] Albumin 2.8(L) 3.5 - 5.0 g/dL [facility] Alk phos 83 40 - 130 Units/L [facility] ALT 11 7 - 45 Units/L [facility] AST 25 10 - 45 Units/L [facility] Blood 12/11/2023 10:1 5 PM CDT 12/11/2023 11:02 PM CDT us Álvaro Radford MD LAB BLOOD ORDERABLES Final Result [facility] Department [place] [address] * (ABNORMAL) Renal function panel (12/11/2023 10:15 PM CDT) Pathologist [facility] Sodium 140 135 - 145 mmol/L Potassium, pl 4.4 3.3 - 4.9 mmol/L [facility] Chloride 103 97 - 110 mmol/L [facility] CO2 28 22 - 32 mmol/L [facility] Anion gap 9 2 - 15 mmol/L [facility] BUN 13 6 - 25 mg/dL [facility] Creatinine 0.80 0.60 - 1.10 mg/dL [facility] Glucose 161 70 - 199 mg/dL [facility] Comment: Interpretive Data Fasting glucose >/= 126 mg/dl is diagnostic for diabetes. ?? Fasting is defined as no caloric intake for at least 8 hours. Fasting glucose between 100 mg/dl to 125 mg/dl is diagnostic of prediabetes. In a patient with classic symptoms of hyperglycemia or hyperglycemic crisis, a random glucose >/= 200 mg/dl is diagnostic for diabetes. In the absence of unequivocal hyperglycemia, results should be confirmed by repeat testing. The classification and Diagnosis of Diabetes Diabetes Care 2021; 46: S19-S40. Current interpretive data was last revised 2022. Calcium 8.2(L) 8.5 - 10.3 mg/dL [facility] Phosphorus, pl 3.0 2.3 - 4.5 mg/dL [facility] Albumin 2.8(L) 3.5 - 5.0 g/dL [facility] Blood 12/11/2023 10:1 5 PM CDT 12/11/2023 11:02 PM CDT Álvaro Radford MD LAB BLOOD ORDERABLES Final Result Performing Organization Address City/[facility] Co de Phone Number [facility] [place] [employer] [place] [address] * POCT glucose (12/11/2023 9:48 PM CDT) Glucose, POC 181 70 - 199 mg/dL Blood 12/11/2023 9:48 PM CDT 12/11/2023 9:48 PM CDT Álvaro Radford MD LAB POCT ORDERABLES - DEVIC E Final Result Performing Organization Address [facility] de Phone Number [facility] [place] [employer] [place] [address] * POCT glucose (12/11/2023 4:59 PM CDT) Glucose, POC 95 70 - 199 mg/dL Blood 12/11/2023 4:59 PM CDT 12/11/2023 4:59 PM CDT Álvaro Radford MD LAB POCT ORDERABLES - DEVIC E Final Result Performing Organization Address [facility] de Phone Number [facility] [place] [employer] [place] [address] * (ABNORMAL) POCT glucose (12/11/2023 11:48 AM CDT) Glucose, POC 207(H) 70 - 199 mg/dL Blood 12/11/2023 11:4 8 AM CDT 12/11/2023 11:48 AM CDT Álvaro Radford MD LAB POCT ORDERABLES - DEVIC E Final Result Performing Organization Address [facility] de Phone Number [facility] [place] [employer] [place] [address] * POCT glucose (12/11/2023 8:31 AM CDT) Glucose, POC 110 70 - 199 mg/dL Blood 12/11/2023 8:31 AM CDT 12/11/2023 8:31 AM CDT Álvaro Radford MD LAB POCT ORDERABLES - DEVIC E Final Result Performing Organization Address [facility] de Phone Number [facility] [place] [employer] [place] [address] * (ABNORMAL) Hemoglobin and hematocrit (12/11/2023 3:14 AM CDT) [facility] Hgb 7.2(L) 11.9 - 15.5 g/dL Hct 23.9(L) 35.6 - 45.5 % [facility] Blood 12/11/2023 3:14 AM CDT 12/11/2023 3:34 AM CDT Álvaro Radford MD LAB BLOOD ORDERABLES Final Result Performing Organization Address [facility] [place] [address] * eGFR (12/11/2023 12:10 AM CDT) eGFR 75 >=60 mL/min/1. 73 m2 Comment: Interpretive Data Reference Interval Normal ?>/= 90 mL/min/1.73m2 Mildly decreased* ? 60 - 89 mL/min/1.73m2 Mildly to moderately decreased ?45 - 59 mL/min/1.73m2 Moderately to severely decreased ??30 - 44 mL/min/1.73m2 Severely decreased ?15 - 29 mL/min/1.73m2 Kidney Failure ?< 15 ??mL/min/1.73m2 *Relative to young adult level Estimated glomerular filtration rate is determined by the 2020 CKD-EPI equation recommended by the National Kidney Foundation (A Unifying Approach to GFR Estimation: Recommendations of the NKF-ASK Task Force on Reassessing the Inclusion of Race in Diagnosing Kidney Disease, JASN 2020). The CKD-EPI equation should not be used for patients with unstable renal function and has not been validated in children and those over 70. Current interpretive data was last reviewed 2020. Blood 12/11/2023 12:1 0 AM CDT 12/11/2023 12:37 AM CDT us Álvaro Radford MD LAB BLOOD ORDERABLES Final Result Performing Organization Address City/State/[facility] Co de Phone Number [facility] Department [place] [address] * (ABNORMAL) Differential, auto (12/11/2023 12:10 AM CDT) Neutrophil abs 6.4 1.5 - 6.5 K/cumm Imm gran abs 0.1 0.0 - 0.1 K/cumm [facility] Lymphocyte abs 2.4 0.8 - 3.3 K/cumm [facility] Monocyte abs 1.1(H) 0.2 - 0.8 K/cumm [facility] Eosinophil abs 0.3 0.0 - 0.5 K/cumm [facility] Basophil abs 0.1 0.0 - 0.1 K/cumm [facility] Neutrophil pct 62.4 % [facility] Comment: Interpretive Data Percent cell count reference ranges are not reported, since discordance with absolute values may lead to misinterpretation of CBC data. Current Interpretive Data was last revised on 2017. Imm gran pct 0.5 % [facility] Comment: Interpretive Data Percent cell count reference ranges are not reported, since discordance with absolute values may lead to misinterpretation of CBC data. Current Interpretive Data was last revised on 2017. Lymphocyte pct 23.6 % [facility] Comment: Interpretive Data Percent cell count reference ranges are not reported, since discordance with absolute values may lead to misinterpretation of CBC data. Current Interpretive Data was last revised on 2017. Monocyte pct 10.3 % [facility] Comment: Interpretive Data Percent cell count reference ranges are not reported, since discordance with absolute values may lead to misinterpretation of CBC data. Current Interpretive Data was last revised on 2017. Eosinophil pct 2.7 % [facility] Comment: Interpretive Data Percent cell count reference ranges are not reported, since discordance with absolute values may lead to misinterpretation of CBC data. Current Interpretive Data was last revised on 2017. Basophil pct 0.5 % [facility] Comment: Interpretive Data Percent cell count reference ranges are not reported, since discordance with absolute values may lead to misinterpretation of CBC data. Current Interpretive Data was last revised on 2017. Blood 12/11/2023 12:1 0 AM CDT 12/11/2023 12:37 AM CDT us Maxime Lee MD LAB BLOOD ORDERABLES Final R esult [facility] Department [place] [address] * (ABNORMAL) CBC with auto differential (12/11/2023 12:10 AM CDT) WBC 10.2(H) 3.8 - 9.9 K/cumm Hgb 7.0(L) 11.9 - 15.5 g/dL [facility] Hct 23.7(L) 35.6 - 45.5 % [facility] Plt 424(H) 150 - 400 K/cumm [facility] MPV 9.3 9.1 - 12.3 fL [facility] RBC 2.71(L) 3.90 - 5.20 M/cumm [facility] MCV 87.5 81.3 - 96.4 fL [facility] MCH 25.8(L) 27.1 - 33.3 pg [facility] MCHC 29.5(L) 32.3 - 35.7 g/dL [facility] RDW CV 19.1(H) 11.1 - 14.9 % [facility] RDW SD 61.2(H) 35.7 - 48.1 fL [facility] NRBC abs 0.00 0.00 - 0.01 K/cumm [facility] Blood 12/11/2023 12:1 0 AM CDT 12/11/2023 12:37 AM CDT us Maxime Lee MD LAB BLOOD ORDERABLES Final R esult Performing Organization Address City/[facility]/ZIP Co de Phone Number [facility] [place] [employer] [place] [address] * Type and screen (12/11/2023 12:10 AM CDT) Maira, indirect Negative ABO Rh O Positive [facility] Blood 12/11/2023 12:1 0 AM CDT 12/11/2023 12:26 AM CDT Narrative [facility] - 12/11/2023 1:33 AM CDT Has the patient had Daratumumab or Isatuximab in the past 6 months?->Unknown us Álvaro Radford MD LAB BLOOD BANK TEST ORDERAB LES Final Result [facility] [place] [employer] [place] [address] * Magnesium (12/11/2023 12:10 AM CDT) Magnesium 1.8 1.4 - 2.5 mg/dL Blood 12/11/2023 12:1 0 AM CDT 12/11/2023 12:37 AM CDT us Álvaro Radford MD LAB BLOOD ORDERABLES Final Result [facility] Department [place] [address] * (ABNORMAL) Renal function panel (12/11/2023 12:10 AM CDT) Pathologist [facility] Sodium 138 135 - 145 mmol/L Potassium, pl 3.9 3.3 - 4.9 mmol/L [facility] Chloride 105 97 - 110 mmol/L [facility] CO2 26 22 - 32 mmol/L [facility] Anion gap 7 2 - 15 mmol/L [facility] BUN 13 6 - 25 mg/dL [facility] Creatinine 0.86 0.60 - 1.10 mg/dL [facility] Glucose 111 70 - 199 mg/dL [facility] Comment: Interpretive Data Fasting glucose >/= 126 mg/dl is diagnostic for diabetes. ?? Fasting is defined as no caloric intake for at least 8 hours. Fasting glucose between 100 mg/dl to 125 mg/dl is diagnostic of prediabetes. In a patient with classic symptoms of hyperglycemia or hyperglycemic crisis, a random glucose >/= 200 mg/dl is diagnostic for diabetes. In the absence of unequivocal hyperglycemia, results should be confirmed by repeat testing. The classification and Diagnosis of Diabetes Diabetes Care 2021; 46: S19-S40. Current interpretive data was last revised 2022. Calcium 8.4(L) 8.5 - 10.3 mg/dL [facility] Phosphorus, pl 2.8 2.3 - 4.5 mg/dL [facility] Albumin 2.1(L) 3.5 - 5.0 g/dL [facility] Blood 12/11/2023 12:1 0 AM CDT 12/11/2023 12:37 AM CDT us Álvaro Radford MD LAB BLOOD ORDERABLES Final Result Performing Organization Address [facility] Phone Number [facility] [place] [address] * POCT glucose (12/10/2023 8:55 PM CDT) Glucose, POC 167 70 - 199 mg/dL Blood 12/10/2023 8:55 PM CDT 12/10/2023 8:55 PM CDT us Álvaro Radford MD LAB POCT ORDERABLES - DEVIC E Final Result Performing Organization Address [facility] Phone Number [facility] [place] [address] * POCT glucose (12/10/2023 5:23 PM CDT) Glucose, POC 116 70 - 199 mg/dL Blood 12/10/2023 5:23 PM CDT 12/10/2023 5:23 PM CDT us Álvaro Radford MD LAB POCT ORDERABLES - DEVIC E Final Result Performing Organization Address [facility] de Phone Number [facility] [place] [address] * POCT glucose (12/10/2023 11:28 AM CDT) Glucose, POC 165 70 - 199 mg/dL Blood 12/10/2023 11:2 8 AM CDT 12/10/2023 11:28 AM CDT us Álvaro Radford MD LAB POCT ORDERABLES - DEVIC E Final Result Performing Organization Address [facility]/State/ZIP Co de Phone Number [facility] Department [place] [address] * POCT glucose (12/10/2023 8:32 AM CDT) Pathologist [facility] Glucose, POC 111 70 - 199 mg/dL Blood 12/10/2023 8:32 AM CDT 12/10/2023 8:32 AM CDT us Álvaro Radford MD LAB POCT ORDERABLES - DEVIC E Final Result [facility]ERT [facility] Department [place] [address] * eGFR (12/09/2023 11:02 PM CDT) [facility] eGFR 81 >=60 mL/min/1. 73 m2 Comment: Interpretive Data Reference Interval Normal ?>/= 90 mL/min/1.73m2 Mildly decreased* ? 60 - 89 mL/min/1.73m2 Mildly to moderately decreased ?45 - 59 mL/min/1.73m2 Moderately to severely decreased ??30 - 44 mL/min/1.73m2 Severely decreased ?15 - 29 mL/min/1.73m2 Kidney Failure ?< 15 ??mL/min/1.73m2 *Relative to young adult level Estimated glomerular filtration rate is determined by the 2020 CKD-EPI equation recommended by the National Kidney Foundation (A Unifying Approach to GFR Estimation: Recommendations of the NKF-ASK Task Force on Reassessing the Inclusion of Race in Diagnosing Kidney Disease, JASN 2020). The CKD-EPI equation should not be used for patients with unstable renal function and has not been validated in children and those over 70. Current interpretive data was last reviewed 2020. Blood 12/09/2023 11:0 2 PM CDT 12/09/2023 11:12 PM CDT us Álvaro Radford MD LAB BLOOD ORDERABLES Final Result [facility] [place] [address] * (ABNORMAL) Differential, auto (12/09/2023 11:02 PM CDT) Neutrophil abs 14.7(H) 1.5 - 6.5 K/cumm Imm gran abs 0.1 0.0 - 0.1 K/cumm [facility] Lymphocyte abs 1.9 0.8 - 3.3 K/cumm [facility] Monocyte abs 1.1(H) 0.2 - 0.8 K/cumm [facility] Eosinophil abs 0.1 0.0 - 0.5 K/cumm [facility] Basophil abs 0.1 0.0 - 0.1 [facility] Neutrophil pct 82.0 % [facility] Comment: Interpretive Data Percent cell count reference ranges are not reported, since discordance with absolute values may lead to misinterpretation of CBC data. Current Interpretive Data was last revised on 2017. Imm gran pct 0.7 % [facility] Comment: Interpretive Data Percent cell count reference ranges are not reported, since discordance with absolute values may lead to misinterpretation of CBC data. Current Interpretive Data was last revised on 2017. Lymphocyte pct 10.7 % [facility] Comment: Interpretive Data Percent cell count reference ranges are not reported, since discordance with absolute values may lead to misinterpretation of CBC data. Current Interpretive Data was last revised on 2017. Monocyte pct 5.9 % [facility] Comment: Interpretive Data Percent cell count reference ranges are not reported, since discordance with absolute values may lead to misinterpretation of CBC data. Current Interpretive Data was last revised on 2017. Eosinophil pct 0.4 % [facility] Comment: Interpretive Data Percent cell count reference ranges are not reported, since discordance with absolute values may lead to misinterpretation of CBC data. Current Interpretive Data was last revised on 2017. Basophil pct 0.3 % [facility] Comment: Interpretive Data Percent cell count reference ranges are not reported, since discordance with absolute values may lead to misinterpretation of CBC data. Current Interpretive Data was last revised on 2017. Blood 12/09/2023 11:0 2 PM CDT 12/09/2023 11:12 PM CDT us Maxime Lee MD LAB BLOOD ORDERABLES Final R esult [facility] [place] [address] * (ABNORMAL) CBC with auto differential (12/09/2023 11:02 PM CDT) WBC 17.9(H) 3.8 - 9.9 K/cumm Hgb 7.3(L) 11.9 - 15.5 g/dL [facility] Hct 24.2(L) 35.6 - 45.5 % [facility] Plt 413(H) 150 - 400 K/cumm [facility] MPV 9.1 9.1 - 12.3 fL [facility] RBC 2.80(L) 3.90 - 5.20 M/cumm [facility] MCV 86.4 81.3 - 96.4 fL [facility] MCH 26.1(L) 27.1 - 33.3 pg [facility] MCHC 30.2(L) 32.3 - 35.7 g/dL [facility] RDW CV 18.8(H) 11.1 - 14.9 % [facility] RDW SD 59.6(H) 35.7 - 48.1 fL [facility] NRBC abs 0.00 0.00 - 0.01 K/cumm [facility] Blood 12/09/2023 11:0 2 PM CDT 12/09/2023 11:12 PM CDT us Maxime Lee MD LAB BLOOD ORDERABLES Final R esult Performing Organization Address City/[facility]/ZIP Co de Phone Number [facility] [employer] [place] [employer] [place] [address] * (ABNORMAL) Renal function panel (12/09/2023 11:02 PM CDT) Sodium 141 135 - 145 mmol/L Potassium, pl 4.1 3.3 - 4.9 mmol/L [facility] Chloride 108 97 - 110 mmol/L [facility] CO2 27 22 - 32 mmol/L [facility] Anion gap 6 2 - 15 mmol/L [facility] BUN 10 6 - 25 mg/dL [facility] Creatinine 0.81 0.60 - 1.10 mg/dL [facility] Glucose 114 70 - 199 mg/dL [facility] Comment: Interpretive Data Fasting glucose >/= 126 mg/dl is diagnostic for diabetes. ?? Fasting is defined as no caloric intake for at least 8 hours. Fasting glucose between 100 mg/dl to 125 mg/dl is diagnostic of prediabetes. In a patient with classic symptoms of hyperglycemia or hyperglycemic crisis, a random glucose >/= 200 mg/dl is diagnostic for diabetes. In the absence of unequivocal hyperglycemia, results should be confirmed by repeat testing. The classification and Diagnosis of Diabetes Diabetes Care 202; 46: S19-S40. Current interpretive data was last revised 2022. Calcium 8.1(L) 8.5 - 10.3 mg/dL [facility] Phosphorus, pl 3.4 2.3 - 4.5 mg/dL [facility] Albumin 2.5(L) 3.5 - 5.0 g/dL [facility] Blood 12/09/2023 11:0 2 PM CDT 12/09/2023 11:12 PM CDT us Álvaro Radford MD LAB BLOOD ORDERABLES Final Result [facility] [place] [employer] [place] [address] * POCT glucose (12/09/2023 8:21 PM CDT) Glucose, POC 167 70 - 199 mg/dL Blood 12/09/2023 8:21 PM CDT 12/09/2023 8:21 PM CDT Álvaro Radford MD LAB POCT ORDERABLES - DEVIC E Final Result Performing Organization Address [facility] de Phone Number [facility] [place] [address] * POCT glucose (12/09/2023 5:01 PM CDT) Glucose, POC 137 70 - 199 mg/dL Blood 12/09/2023 5:01 PM CDT 12/09/2023 5:01 PM CDT Álvaro Radford MD LAB POCT ORDERABLES - DEVIC E Final Result Performing Organization Address [facility] [place] [address] * Urinalysis reflex to microscopic and culture Urine (12/09/2023 4:51 PM CDT) Color, ur Yellow Yellow Clarity, ur Clear Clear [facility] Specific gravity, ur 1.016 1.003 - 1.030 [facility] pH, urine 6.0 [facility] Comment: Interpretive Data ? Urine pH is affected by diet, medications, systemic acid-base disturbances, and renal tubular function. ??pH may affect urinary stone formation. ??For example, urine pH below 6.0 may help reduce the tendency for calcium phosphate stones and pH greater than 6.0 may reduce the tendency for uric acid stone formation. Source: [facility] [employer] Current Interpretive Data was last revised on 2017 Protein, ur ql Trace Negative [facility] Glucose, ur ql Negative Negative [facility] Ketones, ur Negative Negative [facility] Bilirubin, ur Negative Negative [facility] Blood, ur Negative Negative [facility] Urobilinogen, ur <2.0 <2.0 mg/dL [facility] Nitrite, ur Negative Negative [facility] Leukocyte esterase, ur Negative Negative [facility] UA reflex comment Reflex conditions for microscopic UA and culture not met. [facility] Urine 12/09/2023 4:51 PM CDT 12/09/2023 5:25 PM CDT Álvaro Radford MD LAB MICROBIOLOGY - GENERAL ORDERABLES Final Result Performing Organization Address [facility] de Phone Number [facility] Division [place] [employer] [place] [address] * Lactate (12/09/2023 3:21 PM CDT) [facility] Lactate 1.6 0.7 - 2.0 mmol/L Blood 12/09/2023 3:21 PM CDT 12/09/2023 3:44 PM CDT Álvaro Radford MD LAB BLOOD ORDERABLES Final Result Performing Organization Address [facility] de Phone Number [facility] [place] [employer] [place] [address] * eGFR (12/09/2023 12:27 PM CDT) eGFR >90 >=60 mL/min/1. 73 m2 Comment: Interpretive Data Reference Interval Normal ?>/= 90 mL/min/1.73m2 Mildly decreased* ? 60 - 89 mL/min/1.73m2 Mildly to moderately decreased ?45 - 59 mL/min/1.73m2 Moderately to severely decreased ??30 - 44 mL/min/1.73m2 Severely decreased ?15 - 29 mL/min/1.73m2 Kidney Failure ?< 15 ??mL/min/1.73m2 *Relative to young adult level Estimated glomerular filtration rate is determined by the 2020 CKD-EPI equation recommended by the National Kidney Foundation (A Unifying Approach to GFR Estimation: Recommendations of the NKF-ASK Task Force on Reassessing the Inclusion of Race in Diagnosing Kidney Disease, JASN 2020). The CKD-EPI equation should not be used for patients with unstable renal function and has not been validated in children and those over 70. Current interpretive data was last reviewed 2020. Blood 12/09/2023 12:2 7 PM CDT 12/09/2023 12:54 PM CDT us Álvaro Radford MD LAB BLOOD ORDERABLES Final Result [facility] [place] [address] * Blood culture Blood (12/09/2023 12:27 PM CDT) Report Final Report: No growth Blood 12/09/2023 12:2 7 PM CDT 12/09/2023 1:12 PM CDT Narrative [facility] - 12/13/2023 4:00 PM CDT From a different site than #1. Collection->Peripheral 1. ?Blood cultures are incubated for 4 days on a continuously monitored blood culture system. The first report of a negative culture is issued within 24 hours of receipt of the specimen in the laboratory. 2. ?Positive culture results are reported as soon as they are detected. 3. ?The most important factor for detection of microbes in the setting of bloodstream infection is the volume of blood submitted for culture. Failure to collect an optimal blood volume can result in false negative blood cultures. For pediatric patients, the recommended blood volume to collect is 1 mL of blood per year of patient age (up to 20 mL) per blood culture set. For adult patients, 20 mL of blood, divided equally between aerobic and anaerobic blood culture bottles, is recommended for each blood culture set. 4. ?For blood cultures with Gram-positive cocci, a rapid molecular test for organism identification may be performed using the Trader Samigene Gram-Positive Blood Culture Assay. This assay detects microbial DNA in positive blood culture broth via hybridization of target DNA to capture oligonucleotides on a microarray. This assay has been cleared by the [place] Food and Drug Administration and its performance characteristics have been verified by the [facility]. 5. ?For questions about this culture, contact the Microbiology Laboratory at [phone]. Interpretive data was last revised on 2019. us Álvaro Radford MD LAB MICROBIOLOGY - GENERAL ORDERABLES Final Result [facility] Department [place] [address] * Blood culture Blood (12/09/2023 12:27 PM CDT) Report Final Report: No growth Blood 12/09/2023 12:2 7 PM CDT 12/09/2023 1:12 PM CDT Narrative [facility] - 12/13/2023 4:00 PM CDT Collection->Peripheral 1. ?Blood cultures are incubated for 4 days on a continuously monitored blood culture system. The first report of a negative culture is issued within 24 hours of receipt of the specimen in the laboratory. 2. ?Positive culture results are reported as soon as they are detected. 3. ?The most important factor for detection of microbes in the setting of bloodstream infection is the volume of blood submitted for culture. Failure to collect an optimal blood volume can result in false negative blood cultures. For pediatric patients, the recommended blood volume to collect is 1 mL of blood per year of patient age (up to 20 mL) per blood culture set. For adult patients, 20 mL of blood, divided equally between aerobic and anaerobic blood culture bottles, is recommended for each blood culture set. 4. ?For blood cultures with Gram-positive cocci, a rapid molecular test for organism identification may be performed using the Verigene Gram-Positive Blood Culture Assay. This assay detects microbial DNA in positive blood culture broth via hybridization of target DNA to capture oligonucleotides on a microarray. This assay has been cleared by the [place] Food and Drug Administration and its performance characteristics have been verified by the [facility]. 5. ?For questions about this culture, contact the Microbiology Laboratory at [phone]. Interpretive data was last revised on 2019. Álvaro Radford MD LAB MICROBIOLOGY - GENERAL ORDERABLES Final Result [facility] Department [place] [address] * (ABNORMAL) CBC without differential (12/09/2023 12:27 PM CDT) WBC 16.5(H) 3.8 - 9.9 K/cumm Hgb 9.1(L) 11.9 - 15.5 g/dL [facility] Hct 31.0(L) 35.6 - 45.5 % [facility] Plt 516(H) 150 - 400 K/cumm [facility] MPV 9.8 9.1 - 12.3 fL [facility] RBC 3.54(L) 3.90 - 5.20 M/cumm [facility] MCV 87.6 81.3 - 96.4 fL [facility] MCH 25.7(L) 27.1 - 33.3 pg [facility] MCHC 29.4(L) 32.3 - 35.7 g/dL [facility] RDW CV 19.0(H) 11.1 - 14.9 % [facility] RDW SD 60.5(H) 35.7 - 48.1 fL [facility] NRBC abs 0.00 0.00 - 0.01 K/cumm [facility] Blood 12/09/2023 12:2 7 PM CDT 12/09/2023 12:54 PM CDT Álvaro Radford MD LAB BLOOD ORDERABLES Final Result [facility] Department [place] [address] * Magnesium (12/09/2023 12:27 PM CDT) Pathologist [facility] Magnesium 2.0 1.4 - 2.5 mg/dL Blood 12/09/2023 12:2 7 PM CDT 12/09/2023 12:54 PM CDT us Álvaro Radford MD LAB BLOOD ORDERABLES Final Result Performing Organization Address City/[facility] Co de Phone Number [facility] One [facility] [place] [address] * Basic metabolic panel (12/09/2023 12:27 PM CDT) [facility] Sodium 136 135 - 145 mmol/L Potassium, pl See Comment 3.3 - 4.9 mmol/L [facility] Comment:Credited; Hemolyzed Specimen Chloride 102 97 - 110 mmol/L [facility] CO2 24 22 - 32 mmol/L [facility] Anion gap 10 2 - 15 mmol/L [facility] BUN 11 6 - 25 mg/dL [facility] Creatinine 0.73 0.60 - 1.10 mg/dL [facility] Glucose 160 70 - 199 mg/dL [facility] Comment: Interpretive Data Fasting glucose >/= 126 mg/dl is diagnostic for diabetes. ?? Fasting is defined as no caloric intake for at least 8 hours. Fasting glucose between 100 mg/dl to 125 mg/dl is diagnostic of prediabetes. In a patient with classic symptoms of hyperglycemia or hyperglycemic crisis, a random glucose >/= 200 mg/dl is diagnostic for diabetes. In the absence of unequivocal hyperglycemia, results should be confirmed by repeat testing. The classification and Diagnosis of Diabetes Diabetes Care 202; 46: S19-S40. Current interpretive data was last revised 2022. Calcium 8.8 8.5 - 10.3 mg/dL [facility] Blood 12/09/2023 12:2 7 PM CDT 12/09/2023 12:54 PM CDT us Álvaro Radford MD LAB BLOOD ORDERABLES Final Result Performing Organization Address [facility] [place] [address] * (ABNORMAL) POCT lactate (12/09/2023 12:20 PM CDT) Lactate POC i-STAT 5.0(C) 0.7 - 2.2 mmol/L Blood 12/09/2023 12:2 0 PM CDT 12/09/2023 12:20 PM CDT Result Lux Radford MD LAB POCT ORDERABLES - DEVIC E Final Result Performing Organization Address [facility] de Phone Number [facility] [place] [address] * POCT glucose (12/09/2023 12:02 PM CDT) Glucose, POC 175 70 - 199 mg/dL Blood 12/09/2023 12:0 2 PM CDT 12/09/2023 12:02 PM CDT Result Lux Radford MD LAB POCT ORDERABLES - DEVIC E Final Result Performing Organization Address [facility] Co de Phone Number [facility] [place] [address] * POCT glucose (12/09/2023 8:12 AM CDT) Glucose, POC 135 70 - 199 mg/dL Blood 12/09/2023 8:12 AM CDT 12/09/2023 8:12 AM CDT us Álvaro Radford MD LAB POCT ORDERABLES - DEVIC E Final Result Performing Organization Address [facility] Co de Phone Number [facility] Department [place] [address] * eGFR (12/08/2023 8:30 PM CDT) eGFR 82 >=60 mL/min/1. 73 m2 Comment: Interpretive Data Reference Interval Normal ?>/= 90 mL/min/1.73m2 Mildly decreased* ? 60 - 89 mL/min/1.73m2 Mildly to moderately decreased ?45 - 59 mL/min/1.73m2 Moderately to severely decreased ??30 - 44 mL/min/1.73m2 Severely decreased ?15 - 29 mL/min/1.73m2 Kidney Failure ?< 15 ??mL/min/1.73m2 *Relative to young adult level Estimated glomerular filtration rate is determined by the 2020 CKD-EPI equation recommended by the National Kidney Foundation (A Unifying Approach to GFR Estimation: Recommendations of the NKF-ASK Task Force on Reassessing the Inclusion of Race in Diagnosing Kidney Disease, JASN 2020). The CKD-EPI equation should not be used for patients with unstable renal function and has not been validated in children and those over 70. Current interpretive data was last reviewed 2020. Blood 12/08/2023 8:30 PM CDT 12/08/2023 8:47 PM CDT us Álvaro Radford MD LAB BLOOD ORDERABLES Final Result Performing Organization Address [facility] Co de Phone Number [facility] Department [place] [address] * (ABNORMAL) Differential, auto (12/08/2023 8:30 PM CDT) Pathologist [facility] Neutrophil abs 6.7(H) 1.5 - 6.5 K/cumm Imm gran abs 0.1 0.0 - 0.1 K/cumm [facility] Lymphocyte abs 2.3 0.8 - 3.3 K/cumm [facility] Monocyte abs 0.7 0.2 - 0.8 K/cumm [facility] Eosinophil abs 0.2 0.0 - 0.5 K/cumm [facility] Basophil abs 0.1 0.0 - 0.1 K/cumm [facility] Neutrophil pct 66.8 % [facility] Comment: Interpretive Data Percent cell count reference ranges are not reported, since discordance with absolute values may lead to misinterpretation of CBC data. Current Interpretive Data was last revised on 2017. Imm gran pct 0.6 % [facility] Comment: Interpretive Data Percent cell count reference ranges are not reported, since discordance with absolute values may lead to misinterpretation of CBC data. Current Interpretive Data was last revised on 2017. Lymphocyte pct 22.8 % [facility] Comment: Interpretive Data Percent cell count reference ranges are not reported, since discordance with absolute values may lead to misinterpretation of CBC data. Current Interpretive Data was last revised on 2017. Monocyte pct 7.1 % [facility] Comment: Interpretive Data Percent cell count reference ranges are not reported, since discordance with absolute values may lead to misinterpretation of CBC data. Current Interpretive Data was last revised on 2017. Eosinophil pct 2.1 % [facility] Comment: Interpretive Data Percent cell count reference ranges are not reported, since discordance with absolute values may lead to misinterpretation of CBC data. Current Interpretive Data was last revised on 2017. Basophil pct 0.6 % [facility] Comment: Interpretive Data Percent cell count reference ranges are not reported, since discordance with absolute values may lead to misinterpretation of CBC data. Current Interpretive Data was last revised on 2017. Blood 12/08/2023 8:30 PM CDT 12/08/2023 8:47 PM CDT us Maxime Lee MD LAB BLOOD ORDERABLES Final R esult [facility] Department [place] [address] * (ABNORMAL) CBC with auto differential (12/08/2023 8:30 PM CDT) WBC 10.0(H) 3.8 - 9.9 K/cumm Hgb 8.4(L) 11.9 - 15.5 g/dL [facility] Hct 27.6(L) 35.6 - 45.5 % [facility] Plt 483(H) 150 - 400 K/cumm [facility] MPV 9.2 9.1 - 12.3 fL [facility] RBC 3.26(L) 3.90 - 5.20 M/cumm [facility] MCV 84.7 81.3 - 96.4 fL [facility] MCH 25.8(L) 27.1 - 33.3 pg [facility] MCHC 30.4(L) 32.3 - 35.7 g/dL [facility] RDW CV 18.6(H) 11.1 - 14.9 % [facility] RDW SD 57.9(H) 35.7 - 48.1 fL [facility] NRBC abs 0.00 0.00 - 0.01 K/cumm [facility] Blood 12/08/2023 8:30 PM CDT 12/08/2023 8:47 PM CDT Maxime Lee MD LAB BLOOD ORDERABLES Final R esult [facility] Department [place] [address] * Magnesium (12/08/2023 8:30 PM CDT) Magnesium 2.1 1.4 - 2.5 mg/dL Blood 12/08/2023 8:30 PM CDT 12/08/2023 8:47 PM CDT us Silvia Monsivais MD LAB BLOOD ORDERABLES Fi nal Result [facility] Department [place] [address] * (ABNORMAL) Renal function panel (12/08/2023 8:30 PM CDT) Sodium 137 135 - 145 mmol/L Potassium, pl 4.4 3.3 - 4.9 mmol/L [facility] Chloride 104 97 - 110 mmol/L [facility] CO2 26 22 - 32 mmol/L [facility] Anion gap 7 2 - 15 mmol/L [facility] BUN 13 6 - 25 mg/dL [facility] Creatinine 0.80 0.60 - 1.10 mg/dL [facility] Glucose 178 70 - 199 mg/dL [facility] Comment: Interpretive Data Fasting glucose >/= 126 mg/dl is diagnostic for diabetes. ?? Fasting is defined as no caloric intake for at least 8 hours. Fasting glucose between 100 mg/dl to 125 mg/dl is diagnostic of prediabetes. In a patient with classic symptoms of hyperglycemia or hyperglycemic crisis, a random glucose >/= 200 mg/dl is diagnostic for diabetes. In the absence of unequivocal hyperglycemia, results should be confirmed by repeat testing. The classification and Diagnosis of Diabetes Diabetes Care 202; 46: S19-S40. Current interpretive data was last revised 2022. Calcium 8.7 8.5 - 10.3 mg/dL [facility] Phosphorus, pl 3.2 2.3 - 4.5 mg/dL [facility] Albumin 2.8(L) 3.5 - 5.0 g/dL [facility] Blood 12/08/2023 8:30 PM CDT 12/08/2023 8:47 PM CDT us Álvaro Radford MD LAB BLOOD ORDERABLES Final Result [facility] Department [place] [address] * POCT glucose (12/08/2023 8:08 PM CDT) Glucose, POC 182 70 - 199 mg/dL Blood 12/08/2023 8:08 PM CDT 12/08/2023 8:08 PM CDT Álvaro Radford MD LAB POCT ORDERABLES - DEVIC E Final Result Performing Organization Address City/[facility] Co de Phone Number [facility] [place] [employer] [place] [address] * POCT glucose (12/08/2023 5:56 PM CDT) Glucose, POC 130 70 - 199 mg/dL Blood 12/08/2023 5:56 PM CDT 12/08/2023 5:56 PM CDT Álvaro Radford MD LAB POCT ORDERABLES - DEVIC E Final Result Performing Organization Address [facility] de Phone Number [facility] [place] [employer] [place] [address] * POCT glucose (12/08/2023 4:34 PM CDT) Glucose, POC 158 70 - 199 mg/dL Blood 12/08/2023 4:34 PM CDT 12/08/2023 4:34 PM CDT Álvaro Radford MD LAB POCT ORDERABLES - DEVIC E Final Result Performing Organization Address [facility] Co de Phone Number [facility] [place] [employer] [place] [address] * POCT glucose (12/08/2023 12:27 PM CDT) Glucose, POC 136 70 - 199 mg/dL Blood 12/08/2023 12:2 7 PM CDT 12/08/2023 12:27 PM CDT us Álvaro Radford MD LAB POCT ORDERABLES - DEVIC E Final Result Performing Organization Address [facility] Co de Phone Number [facility] Department [place] [address] * POCT glucose (12/08/2023 11:27 AM CDT) Glucose, POC 194 70 - 199 mg/dL Blood 12/08/2023 11:2 7 AM CDT 12/08/2023 11:27 AM CDT Álvaro Radford MD LAB POCT ORDERABLES - DEVIC E Final Result Performing Organization Address [facility] Phone Number [facility] Department [place] [address] * XR Abdomen Ap 1 Vw (12/08/2023 10:58 AM CDT) Anatomical Region Laterality Modality Body, Abdomen N/A Computed Radiogr aphy 12/08/2023 11:3 9 AM CDT Impressions 12/08/2023 11:39 AM CDT A single view of the abdomen is submitted for evaluation. Partially imaged left pleural effusion appears similar in size to previous study. ??Cholecystectomy clips present. ??Normal bowel gas pattern. Dictated by: Yareli York MD The radiology attending physician has personally reviewed this study, and had reviewed and/or edited this written report and agrees with it. Electronically signed by: Shin King M.D. Narrative 12/08/2023 11:39 AM CDT EXAMINATION: Abdomen, one view. HISTORY: 63-year-old female with abdominal distention COMPARISON: Abdominal radiograph 12/04/2023 Procedure Note Shin King MD - 12/08/2023 EXAMINATION: Abdomen, one view. HISTORY: 63-year-old female with abdominal distention COMPARISON: Abdominal radiograph 12/04/2023 IMPRESSION: A single view of the abdomen is submitted for evaluation. Partially imaged left pleural effusion appears similar in size to previous study. Cholecystectomy clips present. Normal bowel gas pattern. Dictated by: Yareli York MD The radiology attending physician has personally reviewed this study, and had reviewed and/or edited this written report and agrees with it. Electronically signed by: Shin King M.D. Álvaro Radford MD IMG XR PROCEDURES Final Res ult * POCT glucose (12/08/2023 8:08 AM CDT) Glucose, POC 123 70 - 199 mg/dL Blood 12/08/2023 8:08 AM CDT 12/08/2023 8:08 AM CDT Álvaro Radford MD LAB POCT ORDERABLES - DEVIC E Final Result Performing Organization Address [facility]/ZIP Co de Phone Number [facility] [place] [employer] [place] [address] * POCT glucose (12/07/2023 9:36 PM CDT) Glucose, POC 159 70 - 199 mg/dL Blood 12/07/2023 9:36 PM CDT 12/07/2023 9:36 PM CDT Álvaro Radford MD LAB POCT ORDERABLES - DEVIC E Final Result Performing Organization Address City/[facility]/ZIP Co de Phone Number [facility] [place] [employer] [place] [address] * Infection Prevention Angie auris PCR, surveillance Axilla/Groin (12/07/2023 9:16 PM CDT) Angie auris DNA Not Detected Not Detected [facility] Comment: Interpretive Data Testing performed by [facility] using the [employer]ia[employer] MDX Angie auris assay. ??This assay detects DNA from Angie auris using Real-Time PCR. ??This assay is laboratory developed and is not cleared by the [place] Food and Drug Administration. ??The performance characteristics have been verified by the [facility]. Interpretive data was last reviewed on 06/11/2023 Axilla/Groin 12/07/2023 9:16 PM CDT 12/07/2023 10:38 PM CDT us Familia So MD LAB MICROBIOLOGY - GENERAL OR DERABLES Final Result [facility] [place] [address] [facility] * eGFR (12/07/2023 9:16 PM CDT) eGFR 79 >=60 mL/min/1. 73 m2 Comment: Interpretive Data Reference Interval Normal ?>/= 90 mL/min/1.73m2 Mildly decreased* ? 60 - 89 mL/min/1.73m2 Mildly to moderately decreased ?45 - 59 mL/min/1.73m2 Moderately to severely decreased ??30 - 44 mL/min/1.73m2 Severely decreased ?15 - 29 mL/min/1.73m2 Kidney Failure ?< 15 ??mL/min/1.73m2 *Relative to young adult level Estimated glomerular filtration rate is determined by the 2020 CKD-EPI equation recommended by the National Kidney Foundation (A Unifying Approach to GFR Estimation: Recommendations of the NKF-ASK Task Force on Reassessing the Inclusion of Race in Diagnosing Kidney Disease, JASN 2020). The CKD-EPI equation should not be used for patients with unstable renal function and has not been validated in children and those over 70. Current interpretive data was last reviewed 2020. Blood 12/07/2023 9:16 PM CDT 12/07/2023 10:34 PM CDT us Álvaro Radford MD LAB BLOOD ORDERABLES Final Result [facility] [place] [address] * Differential, auto (12/07/2023 9:16 PM CDT) Neutrophil abs 6.5 1.5 - 6.5 K/cumm Imm gran abs 0.0 0.0 - 0.1 K/cumm [facility] Lymphocyte abs 2.3 0.8 - 3.3 K/cumm [facility] Monocyte abs 0.7 0.2 - 0.8 K/cumm [facility] Eosinophil abs 0.2 0.0 - 0.5 K/cumm [facility] Basophil abs 0.1 0.0 - 0.1 K[facility]cumm [facility] Neutrophil pct 66.6 % [facility] Comment: Interpretive Data Percent cell count reference ranges are not reported, since discordance with absolute values may lead to misinterpretation of CBC data. Current Interpretive Data was last revised on 2017. Imm gran pct 0.3 % [facility] Comment: Interpretive Data Percent cell count reference ranges are not reported, since discordance with absolute values may lead to misinterpretation of CBC data. Current Interpretive Data was last revised on 2017. Lymphocyte pct 23.7 % [facility] Comment: Interpretive Data Percent cell count reference ranges are not reported, since discordance with absolute values may lead to misinterpretation of CBC data. Current Interpretive Data was last revised on 2017. Monocyte pct 7.1 % [facility] Comment: Interpretive Data Percent cell count reference ranges are not reported, since discordance with absolute values may lead to misinterpretation of CBC data. Current Interpretive Data was last revised on 2017. Eosinophil pct 1.7 % [facility] Comment: Interpretive Data Percent cell count reference ranges are not reported, since discordance with absolute values may lead to misinterpretation of CBC data. Current Interpretive Data was last revised on 2017. Basophil pct 0.6 % [facility] Comment: Interpretive Data Percent cell count reference ranges are not reported, since discordance with absolute values may lead to misinterpretation of CBC data. Current Interpretive Data was last revised on 2017. Blood 12/07/2023 9:16 PM CDT 12/07/2023 10:34 PM CDT us Maxime Lee MD LAB BLOOD ORDERABLES Final R esult [facility] Department of [place] [address] * (ABNORMAL) CBC with auto differential (12/07/2023 9:16 PM CDT) WBC 9.7 3.8 - 9.9 K/cumm Hgb 7.8(L) 11.9 - 15.5 g/dL [facility] Hct 26.1(L) 35.6 - 45.5 % [facility] Plt 487(H) 150 - 400 K/cumm [facility] MPV 9.0(L) 9.1 - 12.3 fL [facility] RBC 3.07(L) 3.90 - 5.20 M/cumm [facility] MCV 85.0 81.3 - 96.4 fL [facility] MCH 25.4(L) 27.1 - 33.3 pg [facility] MCHC 29.9(L) 32.3 - 35.7 g/dL [facility] RDW CV 18.7(H) 11.1 - 14.9 % [facility] RDW SD 58.5(H) 35.7 - 48.1 fL [facility] NRBC abs 0.00 0.00 - 0.01 K/cumm [facility] Blood 12/07/2023 9:16 PM CDT 12/07/2023 10:34 PM CDT us Maxime Lee MD LAB BLOOD ORDERABLES Final R esult Performing Organization Address [facility] Co de Phone Number [facility] [place] [employer] [place] [address] * Type and screen (12/07/2023 9:16 PM CDT) [facility] Maira, indirect Negative ABO Rh O Positive [facility] Blood 12/07/2023 9:16 PM CDT 12/07/2023 10:54 PM CDT Narrative [facility] - 12/07/2023 11:52 PM CDT Has the patient had Daratumumab or Isatuximab in the past 6 months?->Unknown Álvaro Radford MD LAB BLOOD BANK TEST ORDERAB LES Final Result Performing Organization Address [facility] Co de Phone Number [facility] [place] [employer] [place] [address] * Magnesium (12/07/2023 9:16 PM CDT) [facility] Magnesium 2.3 1.4 - 2.5 mg/dL Blood 12/07/2023 9:16 PM CDT 12/07/2023 10:34 PM CDT Álvaro Radford MD LAB BLOOD ORDERABLES Final Result Performing Organization Address [facility] [place] [address] * (ABNORMAL) Renal function panel (12/07/2023 9:16 PM CDT) [facility] Sodium 136 135 - 145 mmol/L Potassium, pl 4.4 3.3 - 4.9 mmol/L [facility] Chloride 102 97 - 110 mmol/L [facility] CO2 25 22 - 32 mmol/L [facility] Anion gap 9 2 - 15 mmol/L [facility] BUN 14 6 - 25 mg/dL [facility] Creatinine 0.82 0.60 - 1.10 mg/dL [facility] Glucose 149 70 - 199 mg/dL [facility] Comment: Interpretive Data Fasting glucose >/= 126 mg/dl is diagnostic for diabetes. ?? Fasting is defined as no caloric intake for at least 8 hours. Fasting glucose between 100 mg/dl to 125 mg/dl is diagnostic of prediabetes. In a patient with classic symptoms of hyperglycemia or hyperglycemic crisis, a random glucose >/= 200 mg/dl is diagnostic for diabetes. In the absence of unequivocal hyperglycemia, results should be confirmed by repeat testing. The classification and Diagnosis of Diabetes Diabetes Care 2021; 46: S19-S40. Current interpretive data was last revised 2022. Calcium 8.3(L) 8.5 - 10.3 mg/dL [facility] Phosphorus, pl 3.3 2.3 - 4.5 mg/dL [facility] Albumin 2.7(L) 3.5 - 5.0 g/dL [facility] Blood 12/07/2023 9:16 PM CDT 12/07/2023 10:34 PM CDT Álvaro Radford MD LAB BLOOD ORDERABLES Final Result Performing Organization Address [facility] Co de Phone Number [facility] [place] [employer] [place] [address] * POCT glucose (12/07/2023 5:14 PM CDT) [facility] Glucose, POC 147 70 - 199 mg/dL Blood 12/07/2023 5:14 PM CDT 12/07/2023 5:14 PM CDT Álvaro Radford MD LAB POCT ORDERABLES - DEVIC E Final Result Performing Organization Address [facility] Co de Phone Number [facility] [place] [address] * POCT glucose (12/07/2023 11:36 AM CDT) Glucose, POC 138 70 - 199 mg/dL Blood 12/07/2023 11:3 6 AM CDT 12/07/2023 11:36 AM CDT Álvaro Radford MD LAB POCT ORDERABLES - DEVIC E Final Result Performing Organization Address [facility] Co de Phone Number [facility] [employer] [place] [employer] [place] [address] * POCT glucose (12/07/2023 8:41 AM CDT) Glucose, POC 136 70 - 199 mg/dL Blood 12/07/2023 8:41 AM CDT 12/07/2023 8:41 AM CDT Álvaro Radford MD LAB POCT ORDERABLES - DEVIC E Final Result Performing Organization Address [facility] de Phone Number [facility] [place] [employer] [place] [address] * eGFR (12/06/2023 9:47 PM CDT) eGFR 79 >=60 mL/min/1. 73 m2 Comment: Interpretive Data Reference Interval Normal ?>/= 90 mL/min/1.73m2 Mildly decreased* ? 60 - 89 mL/min/1.73m2 Mildly to moderately decreased ?45 - 59 mL/min/1.73m2 Moderately to severely decreased ??30 - 44 mL/min/1.73m2 Severely decreased ?15 - 29 mL/min/1.73m2 Kidney Failure ?< 15 ??mL/min/1.73m2 *Relative to young adult level Estimated glomerular filtration rate is determined by the 2020 CKD-EPI equation recommended by the National Kidney Foundation (A Unifying Approach to GFR Estimation: Recommendations of the NKF-ASK Task Force on Reassessing the Inclusion of Race in Diagnosing Kidney Disease, JASN 2020). The CKD-EPI equation should not be used for patients with unstable renal function and has not been validated in children and those over 70. Current interpretive data was last reviewed 2020. Blood 12/06/2023 9:47 PM CDT 12/06/2023 10:29 PM CDT us Álvaro Radford MD LAB BLOOD ORDERABLES Final Result [facility] [place] [address] * (ABNORMAL) Differential, auto (12/06/2023 9:47 PM CDT) Pathologist [facility] Neutrophil abs 8.7(H) 1.5 - 6.5 K/cumm Imm gran abs 0.1 0.0 - 0.1 K/cumm [facility] Lymphocyte abs 2.3 0.8 - 3.3 K/cumm [facility] Monocyte abs 0.9(H) 0.2 - 0.8 K/cumm [facility] Eosinophil abs 0.2 0.0 - 0.5 K/cumm [facility] Basophil abs 0.1 0.0 - 0.1 K/cumm [facility] Neutrophil pct 71.3 % [facility] Comment: Interpretive Data Percent cell count reference ranges are not reported, since discordance with absolute values may lead to misinterpretation of CBC data. Current Interpretive Data was last revised on 2017. Imm gran pct 0.5 % [facility] Comment: Interpretive Data Percent cell count reference ranges are not reported, since discordance with absolute values may lead to misinterpretation of CBC data. Current Interpretive Data was last revised on 2017. Lymphocyte pct 19.0 % [facility] Comment: Interpretive Data Percent cell count reference ranges are not reported, since discordance with absolute values may lead to misinterpretation of CBC data. Current Interpretive Data was last revised on 2017. Monocyte pct 7.0 % [facility] Comment: Interpretive Data Percent cell count reference ranges are not reported, since discordance with absolute values may lead to misinterpretation of CBC data. Current Interpretive Data was last revised on 2017. Eosinophil pct 1.6 % [facility] Comment: Interpretive Data Percent cell count reference ranges are not reported, since discordance with absolute values may lead to misinterpretation of CBC data. Current Interpretive Data was last revised on 2017. Basophil pct 0.6 % [facility] Comment: Interpretive Data Percent cell count reference ranges are not reported, since discordance with absolute values may lead to misinterpretation of CBC data. Current Interpretive Data was last revised on 2017. Blood 12/06/2023 9:47 PM CDT 12/06/2023 10:24 PM CDT us Maxime Lee MD LAB BLOOD ORDERABLES Final R esult [facility] [place] [address] * (ABNORMAL) CBC with auto differential (12/06/2023 9:47 PM CDT) WBC 12.2(H) 3.8 - 9.9 K/cumm Hgb 8.1(L) 11.9 - 15.5 g/dL [facility] Hct 27.7(L) 35.6 - 45.5 % [facility] Plt 490(H) 150 - 400 K/cumm [facility] MPV 9.1 9.1 - 12.3 fL [facility] RBC 3.23(L) 3.90 - 5.20 M/cumm [facility] MCV 85.8 81.3 - 96.4 fL [facility] MCH 25.1(L) 27.1 - 33.3 pg [facility] MCHC 29.2(L) 32.3 - 35.7 g/dL [facility] RDW CV 18.5(H) 11.1 - 14.9 % [facility] RDW SD 58.4(H) 35.7 - 48.1 fL [facility] NRBC abs 0.00 0.00 - 0.01 K/cumm [facility] Blood 12/06/2023 9:47 PM CDT 12/06/2023 10:24 PM CDT us Maxime Lee MD LAB BLOOD ORDERABLES Final R esult Performing Organization Address City/[facility] Co de Phone Number [facility] [place] [employer] [place] [address] * Magnesium (12/06/2023 9:47 PM CDT) [facility] Magnesium 1.9 1.4 - 2.5 mg/dL Blood 12/06/2023 9:47 PM CDT 12/06/2023 10:29 PM CDT us Álvaro Radford MD LAB BLOOD ORDERABLES Final Result Performing Organization Address [facility] de Phone Number [facility] [place] [employer] [place] [address] * (ABNORMAL) Renal function panel (12/06/2023 9:47 PM CDT) Pathologist [facility] Sodium 136 135 - 145 mmol/L Potassium, pl 4.0 3.3 - 4.9 mmol/L [facility] Chloride 104 97 - 110 mmol/L [facility] CO2 24 22 - 32 mmol/L [facility] Anion gap 8 2 - 15 mmol/L [facility] BUN 11 6 - 25 mg/dL [facility] Creatinine 0.82 0.60 - 1.10 mg/dL [facility] Glucose 158 70 - 199 mg/dL [facility] Comment: Interpretive Data Fasting glucose >/= 126 mg/dl is diagnostic for diabetes. ?? Fasting is defined as no caloric intake for at least 8 hours. Fasting glucose between 100 mg/dl to 125 mg/dl is diagnostic of prediabetes. In a patient with classic symptoms of hyperglycemia or hyperglycemic crisis, a random glucose >/= 200 mg/dl is diagnostic for diabetes. In the absence of unequivocal hyperglycemia, results should be confirmed by repeat testing. The classification and Diagnosis of Diabetes Diabetes Care 2021; 46: S19-S40. Current interpretive data was last revised 2022. Calcium 8.2(L) 8.5 - 10.3 mg/dL [facility] Phosphorus, pl 3.3 2.3 - 4.5 mg/dL [facility] Albumin 2.5(L) 3.5 - 5.0 g/dL [facility] Blood 12/06/2023 9:47 PM CDT 12/06/2023 10:29 PM CDT Álvaro Radford MD LAB BLOOD ORDERABLES Final Result Performing Organization Address [facility] de Phone Number [facility] [place] [address] * POCT glucose (12/06/2023 8:07 PM CDT) Glucose, POC 147 70 - 199 mg/dL Blood 12/06/2023 8:07 PM CDT 12/06/2023 8:07 PM CDT Álvaro Radford MD LAB POCT ORDERABLES - DEVIC E Final Result [facility] [place] [address] * POCT glucose (12/06/2023 4:57 PM CDT) Glucose, POC 126 70 - 199 mg/dL Blood 12/06/2023 4:57 PM CDT 12/06/2023 4:57 PM CDT Álvaro Radford MD LAB POCT ORDERABLES - DEVIC E Final Result Performing Organization Address [facility] de Phone Number [facility] [place] [address] * POCT glucose (12/06/2023 11:45 AM CDT) Glucose, POC 168 70 - 199 mg/dL Blood 12/06/2023 11:4 5 AM CDT 12/06/2023 11:45 AM CDT Álvaro Radford MD LAB POCT ORDERABLES - DEVIC E Final Result Performing Organization Address [facility] de Phone Number [facility] [place] [address] * POCT glucose (12/06/2023 7:59 AM CDT) Glucose, POC 105 70 - 199 mg/dL Blood 12/06/2023 7:59 AM CDT 12/06/2023 7:59 AM CDT Álvaro Radford MD LAB POCT ORDERABLES - DEVIC E Final Result Performing Organization Address [facility] de Phone Number [facility] [place] [address] * Vancomycin level trough Draw trough 30 minutes prior to 4th dose. (12/06/2023 4:31 AM CDT) Vancomycin trough 14.3 10.0 - 20.0 mcg/mL Blood 12/06/2023 4:31 AM CDT 12/06/2023 4:43 AM CDT Narrative [facility] - 12/06/2023 5:12 AM CDT Draw trough 30 minutes prior to 4th dose. us Álvaro Radford MD LAB BLOOD ORDERABLES Final Result Performing Organization Address [facility] de Phone Number [facility] [place] [address] * ANCA vasculitis panel (12/05/2023 9:24 PM CDT) Myeloperoxidase ab <0.2 <=0.9 Ab Index Comment: Interpretive Data Negative: ??<1 Ab Index Positive: > or = 1 Ab Index Current interpretive data was last revised on 2016. Proteinase 3 ab 0.2 <=0.9 Ab Index [facility] Comment: Interpretive Data Negative: <1 Ab Index Positive: > or = 1 Ab Index Current interpretive data was last revised on 2016. Blood 12/05/2023 9:24 PM CDT 12/05/2023 9:44 PM CDT Álvaro Radford MD LAB BLOOD ORDERABLES Final Result Performing Organization Address [facility] de Phone Number [facility] [place] [address] * eGFR (12/05/2023 9:24 PM CDT) eGFR 83 >=60 mL/min/1. 73 m2 Comment: Interpretive Data Reference Interval Normal ?>/= 90 mL/min/1.73m2 Mildly decreased* ? 60 - 89 mL/min/1.73m2 Mildly to moderately decreased ?45 - 59 mL/min/1.73m2 Moderately to severely decreased ??30 - 44 mL/min/1.73m2 Severely decreased ?15 - 29 mL/min/1.73m2 Kidney Failure ?< 15 ??mL/min/1.73m2 *Relative to young adult level Estimated glomerular filtration rate is determined by the 2020 CKD-EPI equation recommended by the National Kidney Foundation (A Unifying Approach to GFR Estimation: Recommendations of the NKF-ASK Task Force on Reassessing the Inclusion of Race in Diagnosing Kidney Disease, JASN 202). The CKD-EPI equation should not be used for patients with unstable renal function and has not been validated in children and those over 70. Current interpretive data was last reviewed 2020. Blood 12/05/2023 9:24 PM CDT 12/05/2023 10:45 PM CDT us Álvaro Radford MD LAB BLOOD ORDERABLES Final Result [facility] [place] [address] * (ABNORMAL) Differential, auto (12/05/2023 9:24 PM CDT) Neutrophil abs 8.5(H) 1.5 - 6.5 K/cumm Imm gran abs 0.1 0.0 - 0.1 K/cumm [facility] Lymphocyte abs 2.1 0.8 - 3.3 K/cumm [facility] Monocyte abs 1.0(H) 0.2 - 0.8 K/cumm [facility] Eosinophil abs 0.3 0.0 - 0.5 K/cumm [facility] Basophil abs 0.1 0.0 - 0.1 K/cumm [facility] Neutrophil pct 70.4 % [facility] Comment: Interpretive Data Percent cell count reference ranges are not reported, since discordance with absolute values may lead to misinterpretation of CBC data. Current Interpretive Data was last revised on 2017. Imm gran pct 0.5 % [facility] Comment: Interpretive Data Percent cell count reference ranges are not reported, since discordance with absolute values may lead to misinterpretation of CBC data. Current Interpretive Data was last revised on 2017. Lymphocyte pct 17.6 % [facility] Comment: Interpretive Data Percent cell count reference ranges are not reported, since discordance with absolute values may lead to misinterpretation of CBC data. Current Interpretive Data was last revised on 2017. Monocyte pct 8.2 % [facility] Comment: Interpretive Data Percent cell count reference ranges are not reported, since discordance with absolute values may lead to misinterpretation of CBC data. Current Interpretive Data was last revised on 2017. Eosinophil pct 2.5 % [facility] Comment: Interpretive Data Percent cell count reference ranges are not reported, since discordance with absolute values may lead to misinterpretation of CBC data. Current Interpretive Data was last revised on 2017. Basophil pct 0.8 % [facility] Comment: Interpretive Data Percent cell count reference ranges are not reported, since discordance with absolute values may lead to misinterpretation of CBC data. Current Interpretive Data was last revised on 2017. Blood 12/05/2023 9:24 PM CDT 12/05/2023 10:44 PM CDT us Maxime Lee MD LAB BLOOD ORDERABLES Final R esult [facility] [place] [address] * (ABNORMAL) CBC with auto differential (12/05/2023 9:24 PM CDT) WBC 12.0(H) 3.8 - 9.9 K/cumm Hgb 7.8(L) 11.9 - 15.5 g/dL [facility] Hct 26.0(L) 35.6 - 45.5 % [facility] Plt 446(H) 150 - 400 K/cumm [facility] MPV 8.9(L) 9.1 - 12.3 fL [facility] RBC 3.09(L) 3.90 - 5.20 M/cumm [facility] MCV 84.1 81.3 - 96.4 fL [facility] MCH 25.2(L) 27.1 - 33.3 pg [facility] MCHC 30.0(L) 32.3 - 35.7 g/dL [facility] RDW CV 18.7(H) 11.1 - 14.9 % [facility] RDW SD 57.4(H) 35.7 - 48.1 fL [facility] NRBC abs 0.00 0.00 - 0.01 K/cumm [facility] Blood 12/05/2023 9:24 PM CDT 12/05/2023 10:44 PM CDT Maxime Lee MD LAB BLOOD ORDERABLES Final R esult Performing Organization Address City/[facility] Co de Phone Number [facility] [place] [address] * Magnesium (12/05/2023 9:24 PM CDT) [facility] Magnesium 2.0 1.4 - 2.5 mg/dL Blood 12/05/2023 9:24 PM CDT 12/05/2023 10:45 PM CDT us Álvaro Radford MD LAB BLOOD ORDERABLES Final Result Performing Organization Address [facility] de Phone Number [facility] [place] [address] * (ABNORMAL) Renal function panel (12/05/2023 9:24 PM CDT) [facility] Sodium 137 135 - 145 mmol/L Potassium, pl 3.8 3.3 - 4.9 mmol/L [facility] Chloride 105 97 - 110 mmol/L [facility] CO2 26 22 - 32 mmol/L [facility] Anion gap 6 2 - 15 mmol/L [facility] BUN 17 6 - 25 mg/dL [facility] Creatinine 0.79 0.60 - 1.10 mg/dL [facility] Glucose 121 70 - 199 mg/dL [facility] Comment: Interpretive Data Fasting glucose >/= 126 mg/dl is diagnostic for diabetes. ?? Fasting is defined as no caloric intake for at least 8 hours. Fasting glucose between 100 mg/dl to 125 mg/dl is diagnostic of prediabetes. In a patient with classic symptoms of hyperglycemia or hyperglycemic crisis, a random glucose >/= 200 mg/dl is diagnostic for diabetes. In the absence of unequivocal hyperglycemia, results should be confirmed by repeat testing. The classification and Diagnosis of Diabetes Diabetes Care 2021; 46: S19-S40. Current interpretive data was last revised 2022. Calcium 8.0(L) 8.5 - 10.3 mg/dL [facility] Phosphorus, pl 3.5 2.3 - 4.5 mg/dL [facility] Albumin 2.4(L) 3.5 - 5.0 g/dL [facility] Blood 12/05/2023 9:24 PM CDT 12/05/2023 10:45 PM CDT Result Lux Radford MD LAB BLOOD ORDERABLES Final Result Performing Organization Address [facility] Phone Number [facility] [place] [address] * POCT glucose (12/05/2023 8:16 PM CDT) Glucose, POC 151 70 - 199 mg/dL Blood 12/05/2023 8:16 PM CDT 12/05/2023 8:16 PM CDT us Álvaro Radford MD LAB POCT ORDERABLES - DEVIC E Final Result Performing Organization Address [facility] de Phone Number [facility] [place] [address] * POCT glucose (12/05/2023 4:45 PM CDT) Glucose, POC 104 70 - 199 mg/dL Blood 12/05/2023 4:45 PM CDT 12/05/2023 4:45 PM CDT us Álvaro Radford MD LAB POCT ORDERABLES - DEVIC E Final Result Performing Organization Address [facility]/State/ZIP Co de Phone Number [facility] [place] [address] * (ABNORMAL) POCT glucose (12/05/2023 11:44 AM CDT) [facility] Glucose, POC 205(H) 70 - 199 mg/dL Blood 12/05/2023 11:4 4 AM CDT 12/05/2023 11:44 AM CDT Álvaro Radford MD LAB POCT ORDERABLES - DEVIC E Final Result Performing Organization Address [facility] Co de Phone Number [facility] [place] [address] * (ABNORMAL) Troponin I high-sensitivity 2-hour (12/05/2023 11:09 AM CDT) [facility] Trop I hs 373(C) <=17 ng/L Comment: Previous critical value noted within 48 hours ago. Interpretive Data For further hscTnI resources including the diagnostic algorithm and an aid in interpretation, copy and paste this link: [email or web address]/[email or web address] Current Interpretive Data last revised 2019. Trop I hs pct delta -27(C) % [facility] Comment:Previous critical va lue noted within 48 hours ago. Trop I hs interp Significa nt(C) [facility] Comment:Previous critical va lue noted within 48 hours ago. Blood 12/05/2023 11:0 9 AM CDT 12/05/2023 11:27 AM CDT Álvaro Radford MD LAB BLOOD ORDERABLES Final Result [facility] [place] [address] * (ABNORMAL) Differential, auto (12/05/2023 11:09 AM CDT) Neutrophil abs 9.3(H) 1.5 - 6.5 K/cumm Imm gran abs 0.1 0.0 - 0.1 K/cumm [facility] Lymphocyte abs 1.7 0.8 - 3.3 K/cumm [facility] Monocyte abs 1.0(H) 0.2 - 0.8 K/cumm [facility] Eosinophil abs 0.2 0.0 - 0.5 K/cumm [facility] Basophil abs 0.1 0.0 - 0.1 K/cumm [facility] Neutrophil pct 75.4 % [facility] Comment: Interpretive Data Percent cell count reference ranges are not reported, since discordance with absolute values may lead to misinterpretation of CBC data. Current Interpretive Data was last revised on 2017. Imm gran pct 0.5 % [facility] Comment: Interpretive Data Percent cell count reference ranges are not reported, since discordance with absolute values may lead to misinterpretation of CBC data. Current Interpretive Data was last revised on 2017. Lymphocyte pct 14.1 % [facility] Comment: Interpretive Data Percent cell count reference ranges are not reported, since discordance with absolute values may lead to misinterpretation of CBC data. Current Interpretive Data was last revised on 2017. Monocyte pct 7.8 % [facility] Comment: Interpretive Data Percent cell count reference ranges are not reported, since discordance with absolute values may lead to misinterpretation of CBC data. Current Interpretive Data was last revised on 2017. Eosinophil pct 1.4 % [facility] Comment: Interpretive Data Percent cell count reference ranges are not reported, since discordance with absolute values may lead to misinterpretation of CBC data. Current Interpretive Data was last revised on 2017. Basophil pct 0.8 % [facility] Comment: Interpretive Data Percent cell count reference ranges are not reported, since discordance with absolute values may lead to misinterpretation of CBC data. Current Interpretive Data was last revised on 2017. Blood 12/05/2023 11:0 9 AM CDT 12/05/2023 11:27 AM CDT us Álvaro Radford MD LAB BLOOD ORDERABLES Final Result [facility] Department [place] [address] * (ABNORMAL) CBC with auto differential (12/05/2023 11:09 AM CDT) Pathologist [facility] WBC 12.3(H) 3.8 - 9.9 K/cumm Hgb 7.6(L) 11.9 - 15.5 g/dL [facility] Hct 25.5(L) 35.6 - 45.5 % [facility] Plt 463(H) 150 - 400 K/cumm [facility] MPV 8.9(L) 9.1 - 12.3 fL [facility] RBC 2.99(L) 3.90 - 5.20 M/cumm [facility] MCV 85.3 81.3 - 96.4 fL [facility] MCH 25.4(L) 27.1 - 33.3 pg [facility] MCHC 29.8(L) 32.3 - 35.7 g/dL [facility] RDW CV 18.6(H) 11.1 - 14.9 % [facility] RDW SD 57.7(H) 35.7 - 48.1 fL [facility] NRBC abs 0.00 0.00 - 0.01 K/cumm [facility] Blood 12/05/2023 11:0 9 AM CDT 12/05/2023 11:27 AM CDT Álvaro Radford MD LAB BLOOD ORDERABLES Final Result [facility] Department [place] [address] * (ABNORMAL) Troponin I high-sensitivity series (baseline, 2hr, 4hr, 6hr) (12/05/2023 8:56 AM CDT) Pathologist [facility] Trop I hs 509(C) <=17 ng/L Comment: Previous critical value noted within 48 hours ago. Interpretive Data For further hscTnI resources including the diagnostic algorithm and an aid in interpretation, copy and paste this link: https://bjhlab.testcatThe Paper Store.org/show/hsTrop-[email or web address] Current Interpretive Data last revised 2019. Blood 12/05/2023 8:56 AM CDT 12/05/2023 9:18 AM CDT Álvaro Radford MD LAB BLOOD ORDERABLES Final Result Performing Organization Address [facility] Co de Phone Number [facility] Department [place] [address] * POCT glucose (12/05/2023 8:02 AM CDT) Glucose, POC 148 70 - 199 mg/dL Blood 12/05/2023 8:02 AM CDT 12/05/2023 8:02 AM CDT Result [facility] Álvaro Radford MD LAB POCT ORDERABLES - DEVIC E Final Result Performing Organization Address [facility] de Phone Number [facility] [place] [employer] [place] [address] * (ABNORMAL) Troponin I high-sensitivity 6-hour (12/04/2023 10:19 PM CDT) Trop I hs 1,176(C) <=17 ng/L Comment: Previous critical value noted within 48 hours ago. Interpretive Data For further hscTnI resources including the diagnostic algorithm and an aid in interpretation, copy and paste this link: https://bjhlab.testQuantifeed.org/show/[email or web address] Current Interpretive Data last revised 2019. Trop I hs delta 1,171(C) ng/L [facility] Comment:Previous critical va lue noted within 48 hours ago. Trop I hs interp Significa nt(C) [facility] Comment:Previous critical va lue noted within 48 hours ago. Blood 12/04/2023 10:1 9 PM CDT 12/04/2023 10:34 PM CDT us Álvaro Radford MD LAB BLOOD ORDERABLES Final Result Performing Organization Address [facility] Co de [facility] [place] [address] * eGFR (12/04/2023 10:19 PM CDT) eGFR 81 >=60 mL/min/1. 73 m2 Comment: Interpretive Data Reference Interval Normal ?>/= 90 mL/min/1.73m2 Mildly decreased* ? 60 - 89 mL/min/1.73m2 Mildly to moderately decreased ?45 - 59 mL/min/1.73m2 Moderately to severely decreased ??30 - 44 mL/min/1.73m2 Severely decreased ?15 - 29 mL/min/1.73m2 Kidney Failure ?< 15 ??mL/min/1.73m2 *Relative to young adult level Estimated glomerular filtration rate is determined by the 2020 CKD-EPI equation recommended by the National Kidney Foundation (A Unifying Approach to GFR Estimation: Recommendations of the NKF-ASK Task Force on Reassessing the Inclusion of Race in Diagnosing Kidney Disease, JASN 2020). The CKD-EPI equation should not be used for patients with unstable renal function and has not been validated in children and those over 70. Current interpretive data was last reviewed 2020. Blood 12/04/2023 10:1 9 PM CDT 12/04/2023 10:34 PM CDT us Álvaro Rdaford MD LAB BLOOD ORDERABLES Final Result Performing Organization Address [facility] Co de Phone Number GO ROBERT [facility] Department [place] [address] * Type and screen (12/04/2023 10:19 PM CDT) [facility] ABO Rh O Positive Maira, indirect Negative [facility] Blood 12/04/2023 10:1 9 PM CDT 12/04/2023 10:33 PM CDT Narrative [facility] - 12/04/2023 11:33 PM CDT Has the patient had Daratumumab or Isatuximab in the past 6 months?->Unknown Álvaro Radford MD LAB BLOOD BANK TEST ORDERAB LES Final Result Performing Organization Address City/[facility]/ZIP Co de Phone Number [facility] Department [place] [address] * Magnesium (12/04/2023 10:19 PM CDT) [facility] Magnesium 2.0 1.4 - 2.5 mg/dL Blood 12/04/2023 10:1 9 PM CDT 12/04/2023 10:34 PM CDT Álvaro Radford MD LAB BLOOD ORDERABLES Final Result Performing Organization Address City/[facility]/ZIP Co de Phone Number [facility] Department [place] [address] * (ABNORMAL) Basic metabolic panel (12/04/2023 10:19 PM CDT) [facility] Sodium 137 135 - 145 mmol/L Potassium, pl 4.2 3.3 - 4.9 mmol/L [facility] Chloride 105 97 - 110 mmol/L [facility] CO2 22 22 - 32 mmol/L [facility] Anion gap 10 2 - 15 mmol/L [facility] BUN 18 6 - 25 mg/dL [facility] Creatinine 0.81 0.60 - 1.10 mg/dL [facility] Glucose 197 70 - 199 mg/dL [facility] Comment: Interpretive Data Fasting glucose >/= 126 mg/dl is diagnostic for diabetes. ?? Fasting is defined as no caloric intake for at least 8 hours. Fasting glucose between 100 mg/dl to 125 mg/dl is diagnostic of prediabetes. In a patient with classic symptoms of hyperglycemia or hyperglycemic crisis, a random glucose >/= 200 mg/dl is diagnostic for diabetes. In the absence of unequivocal hyperglycemia, results should be confirmed by repeat testing. The classification and Diagnosis of Diabetes Diabetes Care 2021; 46: S19-S40. Current interpretive data was last revised 2022. Calcium 8.1(L) 8.5 - 10.3 mg/dL [facility] Blood 12/04/2023 10:1 9 PM CDT 12/04/2023 10:34 PM CDT us Álvaro Radford MD LAB BLOOD ORDERABLES Final Result [facility] Department [place] [address] * (ABNORMAL) Differential, auto (12/04/2023 8:30 PM CDT) Neutrophil abs 22.2(H) 1.5 - 6.5 K/cumm Imm gran abs 0.2(H) 0.0 - 0.1 K[facility]umm [facility] Lymphocyte abs 0.7(L) 0.8 - 3.3 K/cumm [facility] Monocyte abs 1.1(H) 0.2 - 0.8 K/cumm [facility] Eosinophil abs 0.0 0.0 - 0.5 K/cumm [facility] Basophil abs 0.1 0.0 - 0.1 K/cumm [facility] Neutrophil pct 91.8 % [facility] Comment: Interpretive Data Percent cell count reference ranges are not reported, since discordance with absolute values may lead to misinterpretation of CBC data. Current Interpretive Data was last revised on 2017. Imm gran pct 0.7 % [facility] Comment: Interpretive Data Percent cell count reference ranges are not reported, since discordance with absolute values may lead to misinterpretation of CBC data. Current Interpretive Data was last revised on 2017. Lymphocyte pct 2.8 % [facility] Comment: Interpretive Data Percent cell count reference ranges are not reported, since discordance with absolute values may lead to misinterpretation of CBC data. Current Interpretive Data was last revised on 2017. Monocyte pct 4.4 % [facility] Comment: Interpretive Data Percent cell count reference ranges are not reported, since discordance with absolute values may lead to misinterpretation of CBC data. Current Interpretive Data was last revised on 2017. Eosinophil pct 0.1 % [facility] Comment: Interpretive Data Percent cell count reference ranges are not reported, since discordance with absolute values may lead to misinterpretation of CBC data. Current Interpretive Data was last revised on 2017. Basophil pct 0.2 % [facility] Comment: Interpretive Data Percent cell count reference ranges are not reported, since discordance with absolute values may lead to misinterpretation of CBC data. Current Interpretive Data was last revised on 2017. Blood 12/04/2023 8:30 PM CDT 12/04/2023 5:34 PM CDT us Maxime Lee MD LAB BLOOD ORDERABLES Final R esult [facility] Department [place] [address] * (ABNORMAL) CBC with auto differential (12/04/2023 8:30 PM CDT) WBC 24.2(H) 3.8 - 9.9 K/cumm Hgb 7.6(L) 11.9 - 15.5 g/dL [facility] Hct 25.3(L) 35.6 - 45.5 % [facility] Plt 483(H) 150 - 400 K/cumm [facility] MPV 8.6(L) 9.1 - 12.3 fL [facility] RBC 2.94(L) 3.90 - 5.20 M/cumm [facility] MCV 86.1 81.3 - 96.4 fL [facility] MCH 25.9(L) 27.1 - 33.3 pg [facility] MCHC 30.0(L) 32.3 - 35.7 g/dL [facility] RDW CV 18.4(H) 11.1 - 14.9 % [facility] RDW SD 58.1(H) 35.7 - 48.1 fL [facility] NRBC abs 0.00 0.00 - 0.01 K/cumm [facility] Blood 12/04/2023 8:30 PM CDT 12/04/2023 5:34 PM CDT us Maxime Lee MD LAB BLOOD ORDERABLES Final R esult Performing Organization Address [facility] Co de Phone Number [facility] Department [place] [address] * (ABNORMAL) Troponin I high-sensitivity 4-hour (12/04/2023 8:14 PM CDT) [facility] Trop I hs 1,061(C) <=17 ng/L Comment: Previous critical value noted within 48 hours ago. Interpretive Data For further hscTnI resources including the diagnostic algorithm and an aid in interpretation, copy and paste this link: https://bjhlab.testcatalog.org/show/[email or web address] Current Interpretive Data last revised 2019. Trop I hs delta 1,056(C) ng/L [facility] Trop I hs interp Significa nt(C) [facility] Blood 12/04/2023 8:14 PM CDT 12/04/2023 8:26 PM CDT us Álvaro Radford MD LAB BLOOD ORDERABLES Final Result Performing Organization Address [facility] Co de Phone Number [facility] [place] [address] * (ABNORMAL) POCT glucose (12/04/2023 7:55 PM CDT) [facility] Glucose, POC 226(H) 70 - 199 mg/dL Blood 12/04/2023 7:55 PM CDT 12/04/2023 7:55 PM CDT Result [facility] Álvaro Radford MD LAB POCT ORDERABLES - DEVIC E Final Result Performing Organization Address City/[facility]/ZIP Co de Phone Number [facility] [place] [address] * (ABNORMAL) Troponin I high-sensitivity 2-hour (12/04/2023 5:58 PM CDT) [facility] Trop I hs 770(C) <=17 ng/L Comment: Interpretive Data For further hscTnI resources including the diagnostic algorithm and an aid in interpretation, copy and paste this link: https://bjhlab.testcatalog.org/show/[email or web address] Current Interpretive Data last revised 2019. Trop I hs delta 765(C) ng/L [facility] Trop I hs interp Significa nt(C) [facility] Blood 12/04/2023 5:58 PM CDT 12/04/2023 6:10 PM CDT Result [facility] Álvaro Radford MD LAB BLOOD ORDERABLES Final Result Performing Organization Address [facility]/ZIP Co de Phone Number [facility] [place] [address] * Lactate (12/04/2023 5:58 PM CDT) [facility] Lactate 1.9 0.7 - 2.0 mmol/L Blood 12/04/2023 5:58 PM CDT 12/04/2023 6:10 PM CDT Result [facility] Álvaro Radford MD LAB BLOOD ORDERABLES Final Result Performing Organization Address City/[facility]/ZIP Co de Phone Number [facility] [place] [address] * Critical result callback Cardio chemistry (12/04/2023 5:58 PM CDT) Date Notified [id number] Time Notified 1848 GO ROBERT Test name Trop I hs 2hr GO VASQUEZ Called/Read Back Isabell ROBERT Credentials RN GO VASQUEZ Called By DVB GO ROBERT Blood 12/04/2023 5:58 PM CDT 12/04/2023 6:10 PM CDT us Álvaro Radford MD LAB BLOOD ORDERABLES Final Result [facility] [place] [address] * eGFR (12/04/2023 5:58 PM CDT) Pathologist [facility] eGFR 79 >=60 mL/min/1. 73 m2 Comment: Interpretive Data Reference Interval Normal ?>/= 90 mL/min/1.73m2 Mildly decreased* ? 60 - 89 mL/min/1.73m2 Mildly to moderately decreased ?45 - 59 mL/min/1.73m2 Moderately to severely decreased ??30 - 44 mL/min/1.73m2 Severely decreased ?15 - 29 mL/min/1.73m2 Kidney Failure ?< 15 ??mL/min/1.73m2 *Relative to young adult level Estimated glomerular filtration rate is determined by the 2020 CKD-EPI equation recommended by the National Kidney Foundation (A Unifying Approach to GFR Estimation: Recommendations of the NKF-ASK Task Force on Reassessing the Inclusion of Race in Diagnosing Kidney Disease, JASN 2020). The CKD-EPI equation should not be used for patients with unstable renal function and has not been validated in children and those over 70. Current interpretive data was last reviewed 2020. Blood 12/04/2023 5:58 PM CDT 12/04/2023 6:10 PM CDT Álvaro Radford MD LAB BLOOD ORDERABLES Final Result [facility] [place] [address] * (ABNORMAL) Differential, auto (12/04/2023 5:58 PM CDT) Neutrophil abs 21.7(H) 1.5 - 6.5 K/cumm Imm gran abs 0.2(H) 0.0 - 0.1 K/cumm [facility] Lymphocyte abs 0.7(L) 0.8 - 3.3 K/cumm [facility] Monocyte abs 1.2(H) 0.2 - 0.8 K/cumm [facility] Eosinophil abs 0.0 0.0 - 0.5 K/cumm [facility] Basophil abs 0.1 0.0 - 0.1 K/cumm [facility] Neutrophil pct 90.7 % [facility] Comment: Interpretive Data Percent cell count reference ranges are not reported, since discordance with absolute values may lead to misinterpretation of CBC data. Current Interpretive Data was last revised on 2017. Imm gran pct 1.0 % [facility] Comment: Interpretive Data Percent cell count reference ranges are not reported, since discordance with absolute values may lead to misinterpretation of CBC data. Current Interpretive Data was last revised on 2017. Lymphocyte pct 2.9 % [facility] Comment: Interpretive Data Percent cell count reference ranges are not reported, since discordance with absolute values may lead to misinterpretation of CBC data. Current Interpretive Data was last revised on 2017. Monocyte pct 5.0 % [facility] Comment: Interpretive Data Percent cell count reference ranges are not reported, since discordance with absolute values may lead to misinterpretation of CBC data. Current Interpretive Data was last revised on 2017. Eosinophil pct 0.1 % [facility] Comment: Interpretive Data Percent cell count reference ranges are not reported, since discordance with absolute values may lead to misinterpretation of CBC data. Current Interpretive Data was last revised on 2017. Basophil pct 0.3 % [facility] Comment: Interpretive Data Percent cell count reference ranges are not reported, since discordance with absolute values may lead to misinterpretation of CBC data. Current Interpretive Data was last revised on 2017. Blood 12/04/2023 5:58 PM CDT 12/04/2023 6:10 PM CDT us Álvaro Radford MD LAB BLOOD ORDERABLES Final Result [facility] [place] [address] * (ABNORMAL) CBC with auto differential (12/04/2023 5:58 PM CDT) WBC 23.9(H) 3.8 - 9.9 K/cumm Hgb 7.3(L) 11.9 - 15.5 g/dL [facility] Hct 24.4(L) 35.6 - 45.5 % [facility] Plt 477(H) 150 - 400 K/cumm [facility] MPV 8.5(L) 9.1 - 12.3 fL [facility] RBC 2.89(L) 3.90 - 5.20 M/cumm [facility] MCV 84.4 81.3 - 96.4 fL [facility] MCH 25.3(L) 27.1 - 33.3 pg [facility] MCHC 29.9(L) 32.3 - 35.7 g/dL [facility] RDW CV 18.4(H) 11.1 - 14.9 % [facility] RDW SD 55.9(H) 35.7 - 48.1 fL [facility] NRBC abs 0.00 0.00 - 0.01 K/cumm [facility] Blood 12/04/2023 5:58 PM CDT 12/04/2023 6:10 PM CDT Álvaro Radford MD LAB BLOOD ORDERABLES Final Result [facility] Department [place] [address] * (ABNORMAL) Renal function panel (12/04/2023 5:58 PM CDT) [facility] Sodium 136 135 - 145 mmol/L Potassium, pl 4.3 3.3 - 4.9 mmol/L [facility] Chloride 105 97 - 110 mmol/L [facility] CO2 24 22 - 32 mmol/L [facility] Anion gap 7 2 - 15 mmol/L [facility] BUN 19 6 - 25 mg/dL [facility] Creatinine 0.82 0.60 - 1.10 mg/dL [facility] Glucose 197 70 - 199 mg/dL [facility] Comment: Interpretive Data Fasting glucose >/= 126 mg/dl is diagnostic for diabetes. ?? Fasting is defined as no caloric intake for at least 8 hours. Fasting glucose between 100 mg/dl to 125 mg/dl is diagnostic of prediabetes. In a patient with classic symptoms of hyperglycemia or hyperglycemic crisis, a random glucose >/= 200 mg/dl is diagnostic for diabetes. In the absence of unequivocal hyperglycemia, results should be confirmed by repeat testing. The classification and Diagnosis of Diabetes Diabetes Care 2021; 46: S19-S40. Current interpretive data was last revised 2022. Calcium 8.0(L) 8.5 - 10.3 mg/dL [facility] Phosphorus, pl 2.9 2.3 - 4.5 mg/dL [facility] Albumin 2.4(L) 3.5 - 5.0 g/dL [facility] Blood 12/04/2023 5:58 PM CDT 12/04/2023 6:10 PM CDT Álvaro Radford MD LAB BLOOD ORDERABLES Final Result GO ROBERT [facility] [place] [address] * Blood culture Blood (12/04/2023 5:25 PM CDT) Report Final Report: No growth Blood 12/04/2023 5:25 PM CDT 12/04/2023 5:37 PM CDT Narrative GO ROBERT - 12/09/2023 7:00 AM CDT Collection->Peripheral 1. ?Blood cultures are incubated for 4 days on a continuously monitored blood culture system. The first report of a negative culture is issued within 24 hours of receipt of the specimen in the laboratory. 2. ?Positive culture results are reported as soon as they are detected. 3. ?The most important factor for detection of microbes in the setting of bloodstream infection is the volume of blood submitted for culture. Failure to collect an optimal blood volume can result in false negative blood cultures. For pediatric patients, the recommended blood volume to collect is 1 mL of blood per year of patient age (up to 20 mL) per blood culture set. For adult patients, 20 mL of blood, divided equally between aerobic and anaerobic blood culture bottles, is recommended for each blood culture set. 4. ?For blood cultures with Gram-positive cocci, a rapid molecular test for organism identification may be performed using the [employer] Gram-Positive Blood Culture Assay. This assay detects microbial DNA in positive blood culture broth via hybridization of target DNA to capture oligonucleotides on a microarray. This assay has been cleared by the [place] Food and Drug Administration and its performance characteristics have been verified by the [facility]. 5. ?For questions about this culture, contact the Microbiology Laboratory at [phone]. Interpretive data was last revised on 2019. us Álvaro Radford MD LAB MICROBIOLOGY - GENERAL ORDERABLES Final Result GO ROBERT [facility] [place] [address] * eGFR (12/04/2023 5:24 PM CDT) eGFR 78 >=60 mL/min/1. 73 m2 Comment: Interpretive Data Reference Interval Normal ?>/= 90 mL/min/1.73m2 Mildly decreased* ? 60 - 89 mL/min/1.73m2 Mildly to moderately decreased ?45 - 59 mL/min/1.73m2 Moderately to severely decreased ??30 - 44 mL/min/1.73m2 Severely decreased ?15 - 29 mL/min/1.73m2 Kidney Failure ?< 15 ??mL/min/1.73m2 *Relative to young adult level Estimated glomerular filtration rate is determined by the 2020 CKD-EPI equation recommended by the National Kidney Foundation (A Unifying Approach to GFR Estimation: Recommendations of the NKF-ASK Task Force on Reassessing the Inclusion of Race in Diagnosing Kidney Disease, JASN 2020). The CKD-EPI equation should not be used for patients with unstable renal function and has not been validated in children and those over 70. Current interpretive data was last reviewed 2020. Blood 12/04/2023 5:24 PM CDT 12/04/2023 5:34 PM CDT us Álvaro Radford MD LAB BLOOD ORDERABLES Final Result [facility] Department of Laboratories [place], [place] [id number] * Magnesium (12/04/2023 5:24 PM CDT) Magnesium 2.5 1.4 - 2.5 mg/dL Blood 12/04/2023 5:24 PM CDT 12/04/2023 5:34 PM CDT us Álvaro Radford MD LAB BLOOD ORDERABLES Final Result [facility] [place] [address] * (ABNORMAL) Lipid panel (12/04/2023 5:24 PM CDT) Cholesterol 71 30 - 199 mg/dL Comment: Interpretive Data Ages < or = 19 years ??Acceptable: ? <170 mg/dL ??Borderline high: ??170-199 mg/dL ??High: ? >or= 200 mg/dL Ages > or = 20 years ??Desirable: ?<200 mg/dL ??Borderline high: ??200-239 mg/dL ??High: ? >or= 240 mg/dL Literature References: 1. Expert Panel on Integrated Guidelines for Cardiovascular Health and Risk Reduction in Children and Adolescents. Pediatrics 2011;128:S213 2. NCEP Expert Panel. Circulation 2004;110:227 Current Interpretive Data was last revised on 2017. Triglycerides 75 <=149 mg/dL [facility] Comment: Interpretive Data Ages < or = 9 years ??Acceptable: ? <75 mg/dL ??Borderline high: ??75-99 mg/dL ??High: ? >or= 100 mg/dL Ages 10 to 20 years ??Acceptable: ? <90 mg/dL ??Borderline high: ??90-129 mg/dL ??High: ? >or= 130 mg/dL Ages > or = 20 years ??Desirable: ?<150 mg/dL ??Borderline high: ??150-199 mg/dL ??High: ? 200-499 mg/dL ?Very high: ?? >or= 499 mg/dL Literature References: 1. Expert Panel on Integrated Guidelines for Cardiovascular Health and Risk Reduction in Children and Adolescents. Pediatrics 2011;128:S213 2. NCEP Expert Panel. Circulation 2004;110:227 Current Interpretive Data was last revised on 2017. HDL 27(L) >=40 mg/dL [facility] Comment: Interpretive Data Ages < or = 19 years ??Acceptable: ? >45 mg/dL ??Borderline low: ?? 40-45 mg/dL ??Low: ? <40 mg/dL Ages > or = 20 years ??Desirable: ?>or= 60 mg/dL ??Low: ? <40 mg/dL Literature References: 1. Expert Panel on Integrated Guidelines for Cardiovascular Health and Risk Reduction in Children and Adolescents. Pediatrics 2011;128:S213 2. NCEP Expert Panel. Circulation 2004;110:227 Current Interpretive Data was last revised on 2017. LDL, calculated 28 <=129 mg/dL [facility] Comment: Interpretive Data Ages < or = 19 years ??Acceptable: ? <110 mg/dL ??Borderline high: ??110-129 mg/dL ??High: ?>or= 130 mg/dL Ages > or = 20 years ??Optimal: ? <100 mg/dL ??Near optimal: ?100-129 mg/dL ??Borderline high: ?? 130-159 mg/dL ??High: ?>160 mg/dL Calculated using the Paul LDL-C estimating equation. This equation was implemented on 2023. Prior to this date LDL-C was estimated using the Friedewald equation. Literature References: 1. Expert Panel on Integrated Guidelines for Cardiovascular Health and Risk Reduction in Children and Adolescents. Pediatrics 2011;128:S213 2. NCEP Expert Panel. Circulation 2004;110:227 3. Paul Donnelly et al. VAL Cardiol. 2020 June 17;5(5):540-548. doi: [email or web address] Current Interpretive Data was last revised on 2023. Non-HDL Cholesterol 44 mg/dL [facility] Comment: Interpretive Data Ages < or = 19 years ??Acceptable: ?<120 mg/dL ??Borderline high: ??120-144 mg/dL ??High: ?>145 mg/dL Ages > or = 20 years ??When triglycerides are >200 mg/dL, Non-HDL cholesterol is a secondary target of ? therapy with treatment goals that are 30 mg/dL greater than the LDL cholesterol target. ? Literature References: 1. Expert Panel on Integrated Guidelines for Cardiovascular Health and Risk Reduction in Children and Adolescents. Pediatrics 2011;128:S213 2. NCEP Expert Panel. Circulation 2004;110:227 Current Interpretive Data was last revised on 2017. Chol/HDL ratio 3 [facility] Blood 12/04/2023 5:24 PM CDT 12/04/2023 5:34 PM CDT Narrative [facility] - 12/04/2023 7:03 PM CDT This lipid panel was automatically ordered due to a significant change in Troponin. The dietary status of the patient at the collection time should be correlated with the lipid results. us Álvaro Radford MD LAB BLOOD ORDERABLES Final Result [facility] Department [place] [address] * (ABNORMAL) Comprehensive metabolic panel (12/04/2023 5:24 PM CDT) [facility] Signature Sodium 135 135 - 145 mmol/L Potassium, pl 4.4 3.3 - 4.9 mmol/L [facility] Chloride 102 97 - 110 mmol/L [facility] CO2 23 22 - 32 mmol/L [facility] Anion gap 10 2 - 15 mmol/L [facility] BUN 18 6 - 25 mg/dL [facility] Creatinine 0.83 0.60 - 1.10 mg/dL [facility] Glucose 186 70 - 199 mg/dL [facility] Comment: Interpretive Data Fasting glucose >/= 126 mg/dl is diagnostic for diabetes. ?? Fasting is defined as no caloric intake for at least 8 hours. Fasting glucose between 100 mg/dl to 125 mg/dl is diagnostic of prediabetes. In a patient with classic symptoms of hyperglycemia or hyperglycemic crisis, a random glucose >/= 200 mg/dl is diagnostic for diabetes. In the absence of unequivocal hyperglycemia, results should be confirmed by repeat testing. The classification and Diagnosis of Diabetes Diabetes Care 2021; 46: S19-S40. Current interpretive data was last revised 2022. Calcium 8.1(L) 8.5 - 10.3 mg/dL [facility] Bilirubin, total 0.3 0.1 - 1.2 mg/dL [facility] Protein, pl 6.8 6.5 - 8.5 g/dL [facility] Albumin 2.5(L) 3.5 - 5.0 g/dL [facility] Alk phos 82 40 - 130 Units/L [facility] ALT 8 7 - 45 Units/L [facility] AST 22 10 - 45 Units/L [facility] Blood 12/04/2023 5:24 PM CDT 12/04/2023 5:34 PM CDT us Álvaro Radford MD LAB BLOOD ORDERABLES Final Result [facility] [place] [employer] [place] [address] * POCT lactate (12/04/2023 5:19 PM CDT) [facility] Lactate POC i-STAT 1.7 0.7 - 2.2 mmol/L Blood 12/04/2023 5:19 PM CDT 12/04/2023 5:19 PM CDT Álvaro Radford MD LAB POCT ORDERABLES - DEVIC E Final Result Performing Organization Address City/[facility]/ZIP Co de Phone Number [facility] [employer] [place] [employer] [place] [address] * XR Chest 1 View (12/04/2023 4:55 PM CDT) Anatomical Region Laterality Modality Body, Chest N/A Digital Radiogra phy 12/05/2023 7:13 AM CDT Impressions 12/05/2023 7:13 AM CDT Comparison is made to chest radiograph dated 11/28/2023. PET/CT dated 11/24/2023 was also reviewed. Moderate left pleural effusion with associated atelectasis has slightly increased compared to the prior chest radiograph. ??Small amount of right pleural fluid is better characterized by the PET/CT of 12/04/2023. ??Multiple nodules in the left lung are also better characterized by PET/CT of 12/04/2023. ??No pneumothorax. ??Stable cardiomediastinal silhouette. Electronically signed by: Lindsey Linda M.D. Narrative 12/05/2023 7:13 AM CDT EXAMINATION: 1 view chest radiograph Procedure Note Lindsey Linda MD - 12/05/2023 EXAMINATION: 1 view chest radiograph IMPRESSION: Comparison is made to chest radiograph dated 11/28/2023. PET/CT dated 11/24/2023 was also reviewed. Moderate left pleural effusion with associated atelectasis has slightly increased compared to the prior chest radiograph. Small amount of right pleural fluid is better characterized by the PET/CT of 12/04/2023. Multiple nodules in the left lung are also better characterized by PET/CT of 12/04/2023. No pneumothorax. Stable cardiomediastinal silhouette. Electronically signed by: Lindsey Linda M.D. us Álvaro Radford MD IMG XR PROCEDURES Final Res ult * XR Abdomen Ap 1 Vw (12/04/2023 4:55 PM CDT) Anatomical Region Laterality Modality Body, Abdomen N/A Computed Radiogr aphy 12/05/2023 10:1 0 AM CDT Impressions 12/05/2023 1:04 PM CDT A single view of the abdomen is submitted for evaluation. Normal bowel gas pattern. ??No evidence of pneumoperitoneum on supine images, although supine images are insensitive for pneumoperitoneum. If concern for perforation persists, recommend upright abdominal CT evaluation. ??Cholecystectomy clips project over the right upper quadrant. ??Partially imaged left lower lung base opacity is better evaluated on contemporaneous chest x-ray. Dictated by: Álvaro Valencia M.D. The radiology attending physician has personally reviewed this study, and had reviewed and/or edited this written report and agrees with it. Electronically signed by: Juan Carlos Buchanan M.D. Narrative 12/05/2023 1:04 PM CDT EXAMINATION: Abdomen, one view. HISTORY: Concern for bowel perforation, recently diagnosed with inflammatory bowel disease and colitis for sigmoid colon with microperforation. COMPARISON: CT 11/04/2023 Procedure Note Juan Carlos Buchanan MD - 12/05/2023 EXAMINATION: Abdomen, one view. HISTORY: Concern for bowel perforation, recently diagnosed with inflammatory bowel disease and colitis for sigmoid colon with microperforation. COMPARISON: CT 11/04/2023 IMPRESSION: A single view of the abdomen is submitted for evaluation. Normal bowel gas pattern. No evidence of pneumoperitoneum on supine images, although supine images are insensitive for pneumoperitoneum. If concern for perforation persists, recommend upright abdominal CT evaluation. Cholecystectomy clips project over the right upper quadrant. Partially imaged left lower lung base opacity is better evaluated on contemporaneous chest x-ray. Dictated by: Álvaro Valencia M.D. The radiology attending physician has personally reviewed this study, and had reviewed and/or edited this written report and agrees with it. Electronically signed by: Juan Carlos Buchanan M.D. us Álvaro Radford MD IMG XR PROCEDURES Final Res ult * Troponin I high-sensitivity series (baseline, 2hr, 4hr, 6hr) (12/04/2023 4:02 PM CDT) Trop I hs 5 <=17 ng/L Comment: Interpretive Data For further hscTnI resources including the diagnostic algorithm and an aid in interpretation, copy and paste this link: [email or web address] Current Interpretive Data last revised 2019. Blood 12/04/2023 4:02 PM CDT 12/04/2023 4:26 PM CDT us Álvaro Radford MD LAB BLOOD ORDERABLES Final Result [facility] Department [place] [address] * (ABNORMAL) Differential, auto (12/04/2023 4:02 PM CDT) Neutrophil abs 19.2(H) 1.5 - 6.5 K/cumm Imm gran abs 0.2(H) 0.0 - 0.1 K/cumm [facility] Lymphocyte abs 4.0(H) 0.8 - 3.3 K/cumm [facility] Monocyte abs 0.6 0.2 - 0.8 K/cumm [facility] Eosinophil abs 0.1 0.0 - 0.5 K/cumm [facility] Basophil abs 0.1 0.0 - 0.1 K/cumm [facility] Neutrophil pct 79.6 % [facility] Comment: Interpretive Data Percent cell count reference ranges are not reported, since discordance with absolute values may lead to misinterpretation of CBC data. Current Interpretive Data was last revised on 2017. Imm gran pct 0.6 % [facility] Comment: Interpretive Data Percent cell count reference ranges are not reported, since discordance with absolute values may lead to misinterpretation of CBC data. Current Interpretive Data was last revised on 2017. Lymphocyte pct 16.6 % [facility] Comment: Interpretive Data Percent cell count reference ranges are not reported, since discordance with absolute values may lead to misinterpretation of CBC data. Current Interpretive Data was last revised on 2017. Monocyte pct 2.5 % [facility] Comment: Interpretive Data Percent cell count reference ranges are not reported, since discordance with absolute values may lead to misinterpretation of CBC data. Current Interpretive Data was last revised on 2017. Eosinophil pct 0.3 % [facility] Comment: Interpretive Data Percent cell count reference ranges are not reported, since discordance with absolute values may lead to misinterpretation of CBC data. Current Interpretive Data was last revised on 2017. Basophil pct 0.4 % [facility] Comment: Interpretive Data Percent cell count reference ranges are not reported, since discordance with absolute values may lead to misinterpretation of CBC data. Current Interpretive Data was last revised on 2017. Blood 12/04/2023 4:02 PM CDT 12/04/2023 4:26 PM CDT us Álvaro Radford MD LAB BLOOD ORDERABLES Final Result [facility] Department [place] [address] * (ABNORMAL) CBC with auto differential (12/04/2023 4:02 PM CDT) WBC 24.1(H) 3.8 - 9.9 K/cumm Hgb 9.8(L) 11.9 - 15.5 g/dL [facility] Hct 33.2(L) 35.6 - 45.5 % [facility] Plt 760(H) 150 - 400 K/cumm [facility] MPV 9.3 9.1 - 12.3 fL [facility] RBC 3.87(L) 3.90 - 5.20 M/cumm [facility] MCV 85.8 81.3 - 96.4 fL [facility] MCH 25.3(L) 27.1 - 33.3 pg [facility] MCHC 29.5(L) 32.3 - 35.7 g/dL [facility] RDW CV 18.6(H) 11.1 - 14.9 % [facility] RDW SD 58.0(H) 35.7 - 48.1 fL [facility] NRBC abs 0.00 0.00 - 0.01 K/cumm [facility] Blood 12/04/2023 4:02 PM CDT 12/04/2023 4:26 PM CDT us Álvaro Radford MD LAB BLOOD ORDERABLES Final Result Performing Organization Address City/[facility] Co de Phone Number [facility] [place] [employer] [place] [address] * eGFR (12/04/2023 4:01 PM CDT) eGFR 75 >=60 mL/min/1. 73 m2 Comment: Interpretive Data Reference Interval Normal ?>/= 90 mL/min/1.73m2 Mildly decreased* ? 60 - 89 mL/min/1.73m2 Mildly to moderately decreased ?45 - 59 mL/min/1.73m2 Moderately to severely decreased ??30 - 44 mL/min/1.73m2 Severely decreased ?15 - 29 mL/min/1.73m2 Kidney Failure ?< 15 ??mL/min/1.73m2 *Relative to young adult level Estimated glomerular filtration rate is determined by the 2020 CKD-EPI equation recommended by the National Kidney Foundation (A Unifying Approach to GFR Estimation: Recommendations of the NKF-ASK Task Force on Reassessing the Inclusion of Race in Diagnosing Kidney Disease, JASN 2020). The CKD-EPI equation should not be used for patients with unstable renal function and has not been validated in children and those over 70. Current interpretive data was last reviewed 2020. Blood 12/04/2023 4:01 PM CDT 12/04/2023 4:26 PM CDT us Álvaro Radford MD LAB BLOOD ORDERABLES Final Result Performing Organization Address City/[facility] Co de Phone Number GO [facility] [employer] [place] [employer] [place] [address] * Blood culture Blood (12/04/2023 4:01 PM CDT) Report Final Report: No growth Blood 12/04/2023 4:01 PM CDT 12/04/2023 4:46 PM CDT Dung ROBERT - 12/09/2023 7:00 AM CDT From a different site than #1. Collection->Peripheral 1. ?Blood cultures are incubated for 4 days on a continuously monitored blood culture system. The first report of a negative culture is issued within 24 hours of receipt of the specimen in the laboratory. 2. ?Positive culture results are reported as soon as they are detected. 3. ?The most important factor for detection of microbes in the setting of bloodstream infection is the volume of blood submitted for culture. Failure to collect an optimal blood volume can result in false negative blood cultures. For pediatric patients, the recommended blood volume to collect is 1 mL of blood per year of patient age (up to 20 mL) per blood culture set. For adult patients, 20 mL of blood, divided equally between aerobic and anaerobic blood culture bottles, is recommended for each blood culture set. 4. ?For blood cultures with Gram-positive cocci, a rapid molecular test for organism identification may be performed using the [employer] Gram-Positive Blood Culture Assay. This assay detects microbial DNA in positive blood culture broth via hybridization of target DNA to capture oligonucleotides on a microarray. This assay has been cleared by the [place] Food and Drug Administration and its performance characteristics have been verified by the [facility]. 5. ?For questions about this culture, contact the Microbiology Laboratory at [phone]. Interpretive data was last revised on 2019. us Álvaro Radford MD LAB MICROBIOLOGY - GENERAL ORDERABLES Final Result [facility] Department [place] [address] * Lipase (12/04/2023 4:01 PM CDT) Lipase 87 10 - 99 Units/L Blood 12/04/2023 4:01 PM CDT 12/04/2023 4:26 PM CDT Álvaro Radford MD LAB BLOOD ORDERABLES Final Result Performing Organization Address [facility] de Phone Number [facility] Department [place] [address] * (ABNORMAL) Blood gas, venous (12/04/2023 4:01 PM CDT) pH, Venous 7.30(L) 7.32 - 7.43 PCO2, Venous 48 40 - 50 mmHg [facility] PO2, Venous 35 mmHg [facility] Comment: Interpretive Data No Reference Range Established Current Interpretive Data was last revised on 2017. HCO3 Venous, Calculated 25 20 - 30 mmol/L [facility] BE, venous -3 mmol/L [facility] Comment: Interpretive Data No Reference Range Established Current Interpretive Data was last revised on 2017. Blood 12/04/2023 4:01 PM CDT 12/04/2023 4:18 PM CDT Álvaro Radford MD LAB BLOOD ORDERABLES Final Result Performing Organization Address [facility] Co de Phone Number [facility] Department [place] [address] * (ABNORMAL) Comprehensive metabolic panel (12/04/2023 4:01 PM CDT) Sodium 136 135 - 145 mmol/L Potassium, pl 4.9 3.3 - 4.9 mmol/L [facility] Comment:Hemolyzed; Potassium value may be falsely elevated by as much as 0.3-0.5 mmol/L. Suggest redraw and reanalysis. Chloride 100 97 - 110 mmol/L [facility] CO2 22 22 - 32 mmol/L [facility] Anion gap 14 2 - 15 mmol/L [facility] BUN 19 6 - 25 mg/dL [facility] Creatinine 0.86 0.60 - 1.10 mg/dL [facility] Glucose 188 70 - 199 mg/dL [facility] Comment: Interpretive Data Fasting glucose >/= 126 mg/dl is diagnostic for diabetes. ?? Fasting is defined as no caloric intake for at least 8 hours. Fasting glucose between 100 mg/dl to 125 mg/dl is diagnostic of prediabetes. In a patient with classic symptoms of hyperglycemia or hyperglycemic crisis, a random glucose >/= 200 mg/dl is diagnostic for diabetes. In the absence of unequivocal hyperglycemia, results should be confirmed by repeat testing. The classification and Diagnosis of Diabetes Diabetes Care 2021; 46: S19-S40. Current interpretive data was last revised 2022. Calcium 9.1 8.5 - 10.3 mg/dL [facility] Bilirubin, total 0.3 0.1 - 1.2 mg/dL [facility] Protein, pl 8.4 6.5 - 8.5 g/dL [facility] Albumin 3.0(L) 3.5 - 5.0 g/dL [facility] Alk phos 102 40 - 130 Units/L [facility] ALT 11 7 - 45 Units/L [facility] AST 35 10 - 45 Units/L [facility] Comment:Hemolyzed; result ma y be falsely elevated Blood 12/04/2023 4:01 PM CDT 12/04/2023 4:26 PM CDT Álvaro Radford MD LAB BLOOD ORDERABLES Final Result Performing Organization Address City/[facility] Co de Phone Number [facility] Department [place] [address] * POCT glucose (12/04/2023 3:30 PM CDT) [facility] Glucose, POC 192 70 - 199 mg/dL Blood 12/04/2023 3:30 PM CDT 12/04/2023 3:30 PM CDT Álvaro Radford MD LAB POCT ORDERABLES - DEVIC E Final Result Performing Organization Address City/[facility] Co de Phone Number [facility] Department [place] [address] * POCT glucose (12/04/2023 11:36 AM CDT) Glucose, POC 146 70 - 199 mg/dL Blood 12/04/2023 11:3 6 AM CDT 12/04/2023 11:36 AM CDT us Álvaro Radford MD LAB POCT ORDERABLES - DEVIC E Final Result Performing Organization Address [facility] Co de Phone Number [facility] Department [place] [address] * PET/CT FDG Skull to Thigh (12/04/2023 10:22 AM CDT) Anatomical Region Laterality Modality N/A Positron Emissio n Tomography (PET) 12/04/2023 1:14 PM CDT Impressions 12/04/2023 1:35 PM CDT 1. ??Slight interval increase in size of phlegmonous changes surrounding the distal descending colon in keeping with known perforated diverticulitis/colitis without organized fluid collection. 2. ??Interval decrease in size of multiple left-sided pulmonary opacities with mild FDG uptake and interval increase in cavitation in keeping with resolving infectious/inflammatory process. ??The differential diagnosis also includes atypical/fungal infection versus lung injury or vasculitis. 3. ??Interval near resolution of hepatic and splenic abscesses. 4. 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 5. ??Hypermetabolic soft tissue tissue nodule in the pelvic peritoneum and within a fat-containing umbilical hernia, which may be infectious/inflammatory in nature, although malignancy cannot be excluded. Dictated by: Abdirizak Multani M.D. :: The radiology attending physician has personally reviewed this study, and had reviewed and/or edited this written report and agrees with it. Electronically signed by: Ganesh Marie M.D. Narrative 12/04/2023 1:35 PM CDT EXAMINATION: TUMOR FDG-PET/CT IMAGING DATE OF STUDY: ??12/04/2023 SCANNER: [facility] Vigoda (NV1). ??This is a high-resolution scanner, which can result in higher SUVs (and even detection of new small lesions) compared to older scanners. RADIOPHARMACEUTICAL: 14.9 mCi F-18 Fluorodeoxyglucose (FDG) i.v. Injection site: Right forearm HISTORY: 63-year-old woman with ulcerative colitis, possible recurrent diverticulitis, hepatic and splenic abscesses, new pulmonary masses, and a right ovarian mass. ??The study is requested for diagnosis. Initial treatment strategy. TECHNIQUE: ?? The patient's fasting blood glucose level, measured by glucometer before injection of FDG, was 147 mg/dL. ?? After intravenous administration of FDG, noncontrast CT images were obtained for attenuation correction and for fusion with emission PET images to allow for anatomical localization of PET findings. Emission PET images were then obtained. ??The study was interpreted on the [employer] workstation. ??The mean liver SUV (reported for software quality assurance specialist purposes) is 1.5 The total scanned area was skull base to proximal thighs. Images of the body were obtained starting 61 minutes after injection of tracer. All reported SUVs are maximum SUVs, unless otherwise specified. COMPARISON: Multiple CT scans of the chest, abdomen, and pelvis, most recently dated 11/26/2023 DESCRIPTORS OF LESION FDG AVIDITY: Minimal: ? <= blood pool ? Mild: ?> blood pool and <= liver ? Moderate: ?? > liver and <= 2x SUVmax liver ? Moderate to marked: ?? >2x SUVmax liver and <= 3x SUVmax liver ? Marked: ? > 3x SUVmax liver ? FINDINGS: There has been interval increase in size of a now moderate-sized left pleural effusion. ??There has been interval decrease in size of multiple pulmonary opacities within the left upper and lower lobes , now with interval increase in central cavitation. ??These are associated with moderate FDG uptake. ??There is slight interval decrease in septal line thickening of the left upper and lower lobes. There is unchanged stranding and soft tissue thickening surrounding the sigmoid/distal descending colon in the left lower quadrant with slight interval increase in size of the adjacent phlegmonous changes. These are associated with marked FDG uptake. ??No organized fluid collection is seen. The previously noted hepatic abscesses are not appreciable on noncontrast CT and demonstrate no correlate on PET images. ??There is a small focus of increased FDG uptake in the anterior aspect of the spleen in keeping with a site of a resolving splenic abscess. ??The other prior splenic abscess sites are not appreciable. An approximately 16 x 11 cm right adnexal cystic lesion demonstrates no appreciable FDG uptake. ??On the left inferior aspect of the cyst there is an area of mild FDG uptake which may correlate with the left ovary. ??The thin septations within the cystic lesion are better appreciated on concurrent CT. Small volume ascites. There is a small fat-containing umbilical hernia containing stranding and moderate FDG uptake. There is a subcentimeter peritoneal nodule posterior to the distal sigmoid colon with moderate FDG uptake (maximum SUV 4.7). Additional CT findings: Coronary and aortic vascular calcifications. Cholecystectomy clips. ??Nonspecific retroperitoneal/peritoneal stranding. ??Mild anasarca. ??There is multinodular right thyroid nodule goiter. Procedure Note Ganesh Marie MD - 12/04/2023 EXAMINATION: TUMOR FDG-PET/CT IMAGING DATE OF STUDY: 12/04/2023 SCANNER: [facility] [employer] (NV1). This is a high-resolution scanner, which can result in higher SUVs (and even detection of new small lesions) compared to older scanners. RADIOPHARMACEUTICAL: 14.9 mCi F-18 Fluorodeoxyglucose (FDG) i.v. Injection site: Right forearm HISTORY: 63-year-old woman with ulcerative colitis, possible recurrent diverticulitis, hepatic and splenic abscesses, new pulmonary masses, and a right ovarian mass. The study is requested for diagnosis. Initial treatment strategy. TECHNIQUE: The patient's fasting blood glucose level, measured by glucometer before injection of FDG, was 147 mg/dL. After intravenous administration of FDG, noncontrast CT images were obtained for attenuation correction and for fusion with emission PET images to allow for anatomical localization of PET findings. Emission PET images were then obtained. The study was interpreted on the [employer] workstation. The mean liver SUV (reported for software quality assurance specialist purposes) is 1.5 The total scanned area was skull base to proximal thighs. Images of the body were obtained starting 61 minutes after injection of tracer. All reported SUVs are maximum SUVs, unless otherwise specified. COMPARISON: Multiple CT scans of the chest, abdomen, and pelvis, most recently dated 11/26/2023 DESCRIPTORS OF LESION FDG AVIDITY: Minimal: <= blood pool Mild: > blood pool and <= liver Moderate: > liver and <= 2x SUVmax liver Moderate to marked: >2x SUVmax liver and <= 3x SUVmax liver Marked: > 3x SUVmax liver FINDINGS: There has been interval increase in size of a now moderate-sized left pleural effusion. There has been interval decrease in size of multiple pulmonary opacities within the left upper and lower lobes , now with interval increase in central cavitation. These are associated with moderate FDG uptake. There is slight interval decrease in septal line thickening of the left upper and lower lobes. There is unchanged stranding and soft tissue thickening surrounding the sigmoid/distal descending colon in the left lower quadrant with slight interval increase in size of the adjacent phlegmonous changes. These are associated with marked FDG uptake. No organized fluid collection is seen. The previously noted hepatic abscesses are not appreciable on noncontrast CT and demonstrate no correlate on PET images. There is a small focus of increased FDG uptake in the anterior aspect of the spleen in keeping with a site of a resolving splenic abscess. The other prior splenic abscess sites are not appreciable. An approximately 16 x 11 cm right adnexal cystic lesion demonstrates no appreciable FDG uptake. On the left inferior aspect of the cyst there is an area of mild FDG uptake which may correlate with the left ovary. The thin septations within the cystic lesion are better appreciated on concurrent CT. Small volume ascites. There is a small fat-containing umbilical hernia containing stranding and moderate FDG uptake. There is a subcentimeter peritoneal nodule posterior to the distal sigmoid colon with moderate FDG uptake (maximum SUV 4.7). Additional CT findings: Coronary and aortic vascular calcifications. Cholecystectomy clips. Nonspecific retroperitoneal/peritoneal stranding. Mild anasarca. There is multinodular right thyroid nodule goiter. IMPRESSION: 1. Slight interval increase in size of phlegmonous changes surrounding the distal descending colon in keeping with known perforated diverticulitis/colitis without organized fluid collection. 2. Interval decrease in size of multiple left-sided pulmonary opacities with mild FDG uptake and interval increase in cavitation in keeping with resolving infectious/inflammatory process. The differential diagnosis also includes atypical/fungal infection versus lung injury or vasculitis. 3. Interval near resolution of hepatic and splenic abscesses. 4. 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 5. Hypermetabolic soft tissue tissue nodule in the pelvic peritoneum and within a fat-containing umbilical hernia, which may be infectious/inflammatory in nature, although malignancy cannot be excluded. Dictated by: Abdirizak Multani M.D. :: The radiology attending physician has personally reviewed this study, and had reviewed and/or edited this written report and agrees with it. Electronically signed by: Ganesh Marie M.D. Álvaro Radford MD IMG PET PROCEDURES Final Re sult * POCT glucose (12/04/2023 4:02 AM CDT) Glucose, POC 147 70 - 199 mg/dL Blood 12/04/2023 4:02 AM CDT 12/04/2023 4:02 AM CDT Álvaro Radford MD LAB POCT ORDERABLES - DEVIC E Final Result [facility] Department [place] [address] * (ABNORMAL) Differential, auto (12/04/2023 12:19 AM CDT) Neutrophil abs 8.9(H) 1.5 - 6.5 K/cumm Imm gran abs 0.1 0.0 - 0.1 K/cumm [facility] Lymphocyte abs 2.3 0.8 - 3.3 K/cumm [facility] Monocyte abs 1.0(H) 0.2 - 0.8 K/cumm [facility] Eosinophil abs 0.2 0.0 - 0.5 K/cumm [facility] Basophil abs 0.1 0.0 - 0.1 K/cumm [facility] Neutrophil pct 70.8 % [facility] Comment: Interpretive Data Percent cell count reference ranges are not reported, since discordance with absolute values may lead to misinterpretation of CBC data. Current Interpretive Data was last revised on 2017. Imm gran pct 0.8 % [facility] Comment: Interpretive Data Percent cell count reference ranges are not reported, since discordance with absolute values may lead to misinterpretation of CBC data. Current Interpretive Data was last revised on 2017. Lymphocyte pct 18.0 % [facility] Comment: Interpretive Data Percent cell count reference ranges are not reported, since discordance with absolute values may lead to misinterpretation of CBC data. Current Interpretive Data was last revised on 2017. Monocyte pct 8.2 % [facility] Comment: Interpretive Data Percent cell count reference ranges are not reported, since discordance with absolute values may lead to misinterpretation of CBC data. Current Interpretive Data was last revised on 2017. Eosinophil pct 1.6 % [facility] Comment: Interpretive Data Percent cell count reference ranges are not reported, since discordance with absolute values may lead to misinterpretation of CBC data. Current Interpretive Data was last revised on 2017. Basophil pct 0.6 % [facility] Comment: Interpretive Data Percent cell count reference ranges are not reported, since discordance with absolute values may lead to misinterpretation of CBC data. Current Interpretive Data was last revised on 2017. Blood 12/04/2023 12:1 9 AM CDT 12/04/2023 1:01 AM CDT us Maxime Lee MD LAB BLOOD ORDERABLES Final R esult [facility] Department [place] [address] * (ABNORMAL) CBC with auto differential (12/04/2023 12:19 AM CDT) [facility] WBC 12.6(H) 3.8 - 9.9 K/cumm Hgb 7.9(L) 11.9 - 15.5 g/dL [facility] Hct 25.9(L) 35.6 - 45.5 % [facility] Plt 478(H) 150 - 400 K/cumm [facility] MPV 8.9(L) 9.1 - 12.3 fL [facility] RBC 3.12(L) 3.90 - 5.20 M/cumm [facility] MCV 83.0 81.3 - 96.4 fL [facility] MCH 25.3(L) 27.1 - 33.3 pg [facility] MCHC 30.5(L) 32.3 - 35.7 g/dL [facility] RDW CV 18.4(H) 11.1 - 14.9 % [facility] RDW SD 55.4(H) 35.7 - 48.1 fL [facility] NRBC abs 0.00 0.00 - 0.01 K/cumm [facility] Blood 12/04/2023 12:1 9 AM CDT 12/04/2023 1:01 AM CDT us Maxime Lee MD LAB BLOOD ORDERABLES Final R esult [facility] Department [place] [address] * POCT glucose (12/03/2023 8:52 PM CDT) Glucose, POC 166 70 - 199 mg/dL Blood 12/03/2023 8:52 PM CDT 12/03/2023 8:52 PM CDT Álvaro Radford MD LAB POCT ORDERABLES - DEVIC E Final Result Performing Organization Address [facility] de Phone Number [facility] [place] [employer] [address] * POCT glucose (12/03/2023 4:55 PM CDT) Glucose, POC 146 70 - 199 mg/dL Blood 12/03/2023 4:55 PM CDT 12/03/2023 4:55 PM CDT Álvaro Radford MD LAB POCT ORDERABLES - DEVIC E Final Result Performing Organization Address [facility] de Phone Number [facility] [place] [address] * (ABNORMAL) POCT glucose (12/03/2023 11:28 AM CDT) Glucose, POC 244(H) 70 - 199 mg/dL Blood 12/03/2023 11:2 8 AM CDT 12/03/2023 11:28 AM CDT Álvaro Radford MD LAB POCT ORDERABLES - DEVIC E Final Result Performing Organization Address [facility] [place] [address] * POCT glucose (12/03/2023 8:48 AM CDT) Glucose, POC 145 70 - 199 mg/dL Blood 12/03/2023 8:48 AM CDT 12/03/2023 8:48 AM CDT us Álvaro Radford MD LAB POCT ORDERABLES - DEVIC E Final Result Performing Organization Address [facility] de Phone Number GO [facility] Abdullahi [facility] Department [place] [employer] [place] [address] * eGFR (12/03/2023 12:09 AM CDT) eGFR 86 >=60 mL/min/1. 73 m2 Comment: Interpretive Data Reference Interval Normal ?>/= 90 mL/min/1.73m2 Mildly decreased* ? 60 - 89 mL/min/1.73m2 Mildly to moderately decreased ?45 - 59 mL/min/1.73m2 Moderately to severely decreased ??30 - 44 mL/min/1.73m2 Severely decreased ?15 - 29 mL/min/1.73m2 Kidney Failure ?< 15 ??mL/min/1.73m2 *Relative to young adult level Estimated glomerular filtration rate is determined by the 2020 CKD-EPI equation recommended by the National Kidney Foundation (A Unifying Approach to GFR Estimation: Recommendations of the NKF-ASK Task Force on Reassessing the Inclusion of Race in Diagnosing Kidney Disease, JASN 2020). The CKD-EPI equation should not be used for patients with unstable renal function and has not been validated in children and those over 70. Current interpretive data was last reviewed 2020. Blood 12/03/2023 12:0 9 AM CDT 12/03/2023 12:27 AM CDT us Suhail Alfredo MD LAB BLOOD ORDERABLES Final Resul t Performing Organization Address [facility] Co de Phone Number [facility] Department [place] [employer] [place] [address] * (ABNORMAL) Differential, auto (12/03/2023 12:09 AM CDT) Neutrophil abs 8.8(H) 1.5 - 6.5 K/cumm Imm gran abs 0.1 0.0 - 0.1 K/cumm [facility] Lymphocyte abs 2.5 0.8 - 3.3 K/cumm [facility] Monocyte abs 0.9(H) 0.2 - 0.8 K/cumm [facility] Eosinophil abs 0.2 0.0 - 0.5 K/cumm [facility] Basophil abs 0.1 0.0 - 0.1 K/cumm [facility] Neutrophil pct 70.1 % [facility] Comment: Interpretive Data Percent cell count reference ranges are not reported, since discordance with absolute values may lead to misinterpretation of CBC data. Current Interpretive Data was last revised on 2017. Imm gran pct 0.6 % [facility] Comment: Interpretive Data Percent cell count reference ranges are not reported, since discordance with absolute values may lead to misinterpretation of CBC data. Current Interpretive Data was last revised on 2017. Lymphocyte pct 20.1 % [facility] Comment: Interpretive Data Percent cell count reference ranges are not reported, since discordance with absolute values may lead to misinterpretation of CBC data. Current Interpretive Data was last revised on 2017. Monocyte pct 7.2 % [facility] Comment: Interpretive Data Percent cell count reference ranges are not reported, since discordance with absolute values may lead to misinterpretation of CBC data. Current Interpretive Data was last revised on 2017. Eosinophil pct 1.4 % [facility] Comment: Interpretive Data Percent cell count reference ranges are not reported, since discordance with absolute values may lead to misinterpretation of CBC data. Current Interpretive Data was last revised on 2017. Basophil pct 0.6 % [facility] Comment: Interpretive Data Percent cell count reference ranges are not reported, since discordance with absolute values may lead to misinterpretation of CBC data. Current Interpretive Data was last revised on 2017. Blood 12/03/2023 12:0 9 AM CDT 12/03/2023 12:27 AM CDT us Maxime Lee MD LAB BLOOD ORDERABLES Final R esult [facility] Department [place] [address] * (ABNORMAL) CBC with auto differential (12/03/2023 12:09 AM CDT) WBC 12.5(H) 3.8 - 9.9 K/cumm Hgb 8.3(L) 11.9 - 15.5 g/dL [facility] Hct 28.2(L) 35.6 - 45.5 % [facility] Plt 481(H) 150 - 400 K/cumm [facility] MPV 9.3 9.1 - 12.3 fL [facility] RBC 3.30(L) 3.90 - 5.20 M/cumm [facility] MCV 85.5 81.3 - 96.4 fL [facility] MCH 25.2(L) 27.1 - 33.3 pg [facility] MCHC 29.4(L) 32.3 - 35.7 g/dL [facility] RDW CV 18.4(H) 11.1 - 14.9 % [facility] RDW SD 57.8(H) 35.7 - 48.1 fL [facility] NRBC abs 0.00 0.00 - 0.01 K/cumm [facility] Blood 12/03/2023 12:0 9 AM CDT 12/03/2023 12:27 AM CDT us Maxime Lee MD LAB BLOOD ORDERABLES Final R esult [facility] [place] [address] * Folate (12/03/2023 12:09 AM CDT) Folic acid 18.0 >=5.0 ng/mL Blood 12/03/2023 12:0 9 AM CDT 12/03/2023 12:27 AM CDT Álvaro Radford MD LAB BLOOD ORDERABLES Final Result Performing Organization Address City/State/[facility] Co de Phone Number [facility] [place] [address] * Vitamin B12 (12/03/2023 12:09 AM CDT) Pathologist [facility] Vitamin B12 1,114 230 - 1,250 pg/mL Blood 12/03/2023 12:0 9 AM CDT 12/03/2023 12:27 AM CDT Álvaro Radford MD LAB BLOOD ORDERABLES Final Result Performing Organization Address [facility] de Phone Number [facility] [place] [address] * (ABNORMAL) Renal function panel (12/03/2023 12:09 AM CDT) Pathologist [facility] Sodium 134(L) 135 - 145 mmol/L Potassium, pl 4.3 3.3 - 4.9 mmol/L [facility] Chloride 100 97 - 110 mmol/L [facility] CO2 26 22 - 32 mmol/L [facility] Anion gap 8 2 - 15 mmol/L [facility] BUN 16 6 - 25 mg/dL [facility] Creatinine 0.77 0.60 - 1.10 mg/dL [facility] Glucose 140 70 - 199 mg/dL [facility] Comment: Interpretive Data Fasting glucose >/= 126 mg/dl is diagnostic for diabetes. ?? Fasting is defined as no caloric intake for at least 8 hours. Fasting glucose between 100 mg/dl to 125 mg/dl is diagnostic of prediabetes. In a patient with classic symptoms of hyperglycemia or hyperglycemic crisis, a random glucose >/= 200 mg/dl is diagnostic for diabetes. In the absence of unequivocal hyperglycemia, results should be confirmed by repeat testing. The classification and Diagnosis of Diabetes Diabetes Care 2022; 46: S19-S40. Current interpretive data was last revised 2022. Calcium 8.6 8.5 - 10.3 mg/dL [facility] Phosphorus, pl 3.3 2.3 - 4.5 mg/dL [facility] Albumin 2.7(L) 3.5 - 5.0 g/dL [facility] Blood 12/03/2023 12:0 9 AM CDT 12/03/2023 12:27 AM CDT Suhail Alfredo MD LAB BLOOD ORDERABLES Final Resul t Performing Organization Address City/[facility] Co de Phone Number [facility] [place] [employer] [place] [place] [address] * (ABNORMAL) POCT glucose (12/02/2023 8:47 PM CDT) Glucose, POC 216(H) 70 - 199 mg/dL Comment:Glu2: RN/MD Notified Glucose comment 1 Glu2: RN/MD Notified [facility] Blood 12/02/2023 8:47 PM CDT 12/02/2023 8:47 PM CDT Álvaro Radford MD LAB POCT ORDERABLES - DEVIC E Final Result Performing Organization Address [facility] Co de Phone Number [facility] [place] [employer] [place] [place] [address] * POCT glucose (12/02/2023 4:47 PM CDT) Glucose, POC 174 70 - 199 mg/dL Blood 12/02/2023 4:47 PM CDT 12/02/2023 4:47 PM CDT Álvaro Radford MD LAB POCT ORDERABLES - DEVIC E Final Result Performing Organization Address City/[facility] Co de Phone Number [facility] [place] [employer] [place] [address] * POCT glucose (12/02/2023 1:15 PM CDT) Glucose, POC 133 70 - 199 mg/dL Blood 12/02/2023 1:15 PM CDT 12/02/2023 1:15 PM CDT Álvaro Radford MD LAB POCT ORDERABLES - DEVIC E Final Result [facility] [place] [address] * POCT glucose (12/02/2023 12:07 PM CDT) Glucose, POC 196 70 - 199 mg/dL Blood 12/02/2023 12:0 7 PM CDT 12/02/2023 12:07 PM CDT Álvaro Radford MD LAB POCT ORDERABLES - DEVIC E Final Result Performing Organization Address City/[facility]/[place] [address] * BLOOD MISC TO ODEM (12/02/2023 9:42 AM CDT) Test name, chem SFUNG, Fungitell, Serum [place] ref Lab Misc See Comment [facility] Comment:Credited, test not i ndicated. Blood 12/02/2023 9:42 AM CDT 12/03/2023 11:51 AM CDT Álvaro Radford MD LAB BLOOD ORDERABLES Final Result [facility] [place] [address] [place] ref [facility] * POCT glucose (12/02/2023 8:19 AM CDT) Glucose, POC 137 70 - 199 mg/dL Blood 12/02/2023 8:19 AM CDT 12/02/2023 8:19 AM CDT us Álvaro Radford MD LAB POCT ORDERABLES - DEVIC E Final Result Performing Organization Address City/State/[facility] Co de Phone Number [facility] [place] [address] * eGFR (12/01/2023 9:46 PM CDT) eGFR 84 >=60 mL/min/1. 73 m2 Comment: Interpretive Data Reference Interval Normal ?>/= 90 mL/min/1.73m2 Mildly decreased* ? 60 - 89 mL/min/1.73m2 Mildly to moderately decreased ?45 - 59 mL/min/1.73m2 Moderately to severely decreased ??30 - 44 mL/min/1.73m2 Severely decreased ?15 - 29 mL/min/1.73m2 Kidney Failure ?< 15 ??mL/min/1.73m2 *Relative to young adult level Estimated glomerular filtration rate is determined by the 2020 CKD-EPI equation recommended by the National Kidney Foundation (A Unifying Approach to GFR Estimation: Recommendations of the NKF-ASK Task Force on Reassessing the Inclusion of Race in Diagnosing Kidney Disease, JASN 2020). The CKD-EPI equation should not be used for patients with unstable renal function and has not been validated in children and those over 70. Current interpretive data was last reviewed 2020. Blood 12/01/2023 9:46 PM CDT 12/01/2023 10:07 PM CDT us Suhail Alfredo MD LAB BLOOD ORDERABLES Final Resul t [facility] Department [place] [address] * (ABNORMAL) Differential, auto (12/01/2023 9:46 PM CDT) Neutrophil abs 10.2(H) 1.5 - 6.5 K/cumm Imm gran abs 0.1 0.0 - 0.1 K/cumm [facility] Lymphocyte abs 1.9 0.8 - 3.3 K/cumm [facility] Monocyte abs 0.9(H) 0.2 - 0.8 K[facility]cumm [facility] Eosinophil abs 0.2 0.0 - 0.5 K/cumm [facility] Basophil abs 0.1 0.0 - 0.1 K/cumm [facility] Neutrophil pct 76.4 % [facility] Comment: Interpretive Data Percent cell count reference ranges are not reported, since discordance with absolute values may lead to misinterpretation of CBC data. Current Interpretive Data was last revised on 2017. Imm gran pct 0.7 % [facility] Comment: Interpretive Data Percent cell count reference ranges are not reported, since discordance with absolute values may lead to misinterpretation of CBC data. Current Interpretive Data was last revised on 2017. Lymphocyte pct 14.2 % [facility] Comment: Interpretive Data Percent cell count reference ranges are not reported, since discordance with absolute values may lead to misinterpretation of CBC data. Current Interpretive Data was last revised on 2017. Monocyte pct 6.9 % [facility] Comment: Interpretive Data Percent cell count reference ranges are not reported, since discordance with absolute values may lead to misinterpretation of CBC data. Current Interpretive Data was last revised on 2017. Eosinophil pct 1.4 % [facility] Comment: Interpretive Data Percent cell count reference ranges are not reported, since discordance with absolute values may lead to misinterpretation of CBC data. Current Interpretive Data was last revised on 2017. Basophil pct 0.4 % [facility] Comment: Interpretive Data Percent cell count reference ranges are not reported, since discordance with absolute values may lead to misinterpretation of CBC data. Current Interpretive Data was last revised on 2017. Blood 12/01/2023 9:46 PM CDT 12/01/2023 10:07 PM CDT us Maxime Lee MD LAB BLOOD ORDERABLES Final R esult [facility] [place] [address] * (ABNORMAL) CBC with auto differential (12/01/2023 9:46 PM CDT) WBC 13.4(H) 3.8 - 9.9 K/cumm Hgb 8.4(L) 11.9 - 15.5 g/dL [facility] Hct 27.3(L) 35.6 - 45.5 % [facility] Plt 519(H) 150 - 400 K/cumm [facility] MPV 8.6(L) 9.1 - 12.3 fL [facility] RBC 3.26(L) 3.90 - 5.20 M/cumm [facility] MCV 83.7 81.3 - 96.4 fL [facility] MCH 25.8(L) 27.1 - 33.3 pg [facility] MCHC 30.8(L) 32.3 - 35.7 g/dL [facility] RDW CV 18.2(H) 11.1 - 14.9 % [facility] RDW SD 55.2(H) 35.7 - 48.1 fL [facility] NRBC abs 0.00 0.00 - 0.01 K/cumm [facility] Blood 12/01/2023 9:46 PM CDT 12/01/2023 10:07 PM CDT us Maxime Lee MD LAB BLOOD ORDERABLES Final R esult [facility] [place] [address] * (ABNORMAL) Renal function panel (12/01/2023 9:46 PM CDT) Sodium 134(L) 135 - 145 mmol/L Potassium, pl 4.3 3.3 - 4.9 mmol/L [facility] Chloride 100 97 - 110 mmol/L [facility] CO2 25 22 - 32 mmol/L [facility] Anion gap 9 2 - 15 mmol/L [facility] BUN 13 6 - 25 mg/dL [facility] Creatinine 0.78 0.60 - 1.10 mg/dL [facility] Glucose 168 70 - 199 mg/dL [facility] Comment: Interpretive Data Fasting glucose >/= 126 mg/dl is diagnostic for diabetes. ?? Fasting is defined as no caloric intake for at least 8 hours. Fasting glucose between 100 mg/dl to 125 mg/dl is diagnostic of prediabetes. In a patient with classic symptoms of hyperglycemia or hyperglycemic crisis, a random glucose >/= 200 mg/dl is diagnostic for diabetes. In the absence of unequivocal hyperglycemia, results should be confirmed by repeat testing. The classification and Diagnosis of Diabetes Diabetes Care 2021; 46: S19-S40. Current interpretive data was last revised 2022. Calcium 8.5 8.5 - 10.3 mg/dL [facility] Phosphorus, pl 3.0 2.3 - 4.5 mg/dL [facility] Albumin 2.6(L) 3.5 - 5.0 g/dL [facility] Blood 12/01/2023 9:46 PM CDT 12/01/2023 10:07 PM CDT us Suhail Alfredo MD LAB BLOOD ORDERABLES Final Resul t [facility] Department [place] [address] * (ABNORMAL) POCT glucose (12/01/2023 8:26 PM CDT) Glucose, POC 213(H) 70 - 199 mg/dL Blood 12/01/2023 8:26 PM CDT 12/01/2023 8:26 PM CDT Result Lux Radford MD LAB POCT ORDERABLES - DEVIC E Final Result Performing Organization Address [facility] de Phone Number [facility] [place] [address] * POCT glucose (12/01/2023 4:04 PM CDT) Glucose, POC 152 70 - 199 mg/dL Blood 12/01/2023 4:04 PM CDT 12/01/2023 4:04 PM CDT us Álvaro Radford MD LAB POCT ORDERABLES - DEVIC E Final Result Performing Organization Address [facility] de Phone Number [facility] [place] [address] * (ABNORMAL) POCT glucose (12/01/2023 12:02 PM CDT) Glucose, POC 200(H) 70 - 199 mg/dL Blood 12/01/2023 12:0 2 PM CDT 12/01/2023 12:02 PM CDT us Álvaro Radford MD LAB POCT ORDERABLES - DEVIC E Final Result Performing Organization Address [facility] de Phone Number [facility] [place] [employer] [place] [address] * POCT glucose (12/01/2023 8:27 AM CDT) Glucose, POC 124 70 - 199 mg/dL Blood 12/01/2023 8:27 AM CDT 12/01/2023 8:27 AM CDT Result Lux Radford MD LAB POCT ORDERABLES - DEVIC E Final Result Performing Organization Address [facility] Co de Phone Number [facility] Department [place] [address] * eGFR (11/30/2023 10:55 PM CDT) eGFR 90 >=60 mL/min/1. 73 m2 Comment: Interpretive Data Reference Interval Normal ?>/= 90 mL/min/1.73m2 Mildly decreased* ? 60 - 89 mL/min/1.73m2 Mildly to moderately decreased ?45 - 59 mL/min/1.73m2 Moderately to severely decreased ??30 - 44 mL/min/1.73m2 Severely decreased ?15 - 29 mL/min/1.73m2 Kidney Failure ?< 15 ??mL/min/1.73m2 *Relative to young adult level Estimated glomerular filtration rate is determined by the 2020 CKD-EPI equation recommended by the National Kidney Foundation (A Unifying Approach to GFR Estimation: Recommendations of the NKF-ASK Task Force on Reassessing the Inclusion of Race in Diagnosing Kidney Disease, JASN 202). The CKD-EPI equation should not be used for patients with unstable renal function and has not been validated in children and those over 70. Current interpretive data was last reviewed 2020. Blood 11/30/2023 10:5 5 PM CDT 12/01/2023 12:14 AM CDT us Maxime Lee MD LAB BLOOD ORDERABLES Final R esult Performing Organization Address [facility]/ZIP Co de Phone Number GO ROBERT Abdullahi [facility] Department [place] [address] * (ABNORMAL) Differential, auto (11/30/2023 10:55 PM CDT) Neutrophil abs 13.8(H) 1.5 - 6.5 K/cumm Imm gran abs 0.1 0.0 - 0.1 K/cumm [facility] Lymphocyte abs 2.0 0.8 - 3.3 K/cumm [facility] Monocyte abs 1.1(H) 0.2 - 0.8 K/cumm [facility] Eosinophil abs 0.1 0.0 - 0.5 K/cumm [facility] Basophil abs 0.1 0.0 - 0.1 K/cumm [facility] Neutrophil pct 80.4 % [facility] Comment: Interpretive Data Percent cell count reference ranges are not reported, since discordance with absolute values may lead to misinterpretation of CBC data. Current Interpretive Data was last revised on 2017. Imm gran pct 0.6 % [facility] Comment: Interpretive Data Percent cell count reference ranges are not reported, since discordance with absolute values may lead to misinterpretation of CBC data. Current Interpretive Data was last revised on 2017. Lymphocyte pct 11.5 % [facility] Comment: Interpretive Data Percent cell count reference ranges are not reported, since discordance with absolute values may lead to misinterpretation of CBC data. Current Interpretive Data was last revised on 2017. Monocyte pct 6.4 % [facility] Comment: Interpretive Data Percent cell count reference ranges are not reported, since discordance with absolute values may lead to misinterpretation of CBC data. Current Interpretive Data was last revised on 2017. Eosinophil pct 0.8 % [facility] Comment: Interpretive Data Percent cell count reference ranges are not reported, since discordance with absolute values may lead to misinterpretation of CBC data. Current Interpretive Data was last revised on 2017. Basophil pct 0.3 % [facility] Comment: Interpretive Data Percent cell count reference ranges are not reported, since discordance with absolute values may lead to misinterpretation of CBC data. Current Interpretive Data was last revised on 2017. Blood 11/30/2023 10:5 5 PM CDT 12/01/2023 12:13 AM CDT us Maxime Lee MD LAB BLOOD ORDERABLES Final R esult [facility] Department [place] [address] * Thyroid Function Wirt (11/30/2023 10:55 PM CDT) [facility] TSH 2.09 0.30 - 4.20 mcIUnit/mL Blood 11/30/2023 10:5 5 PM CDT 12/01/2023 12:14 AM CDT us Suhail Alfredo MD LAB BLOOD ORDERABLES Final Resul t Performing Organization Address [facility] Co de Phone Number [facility] Department [place] [address] * (ABNORMAL) CBC with auto differential (11/30/2023 10:55 PM CDT) [facility] WBC 17.2(H) 3.8 - 9.9 K/cumm Hgb 8.3(L) 11.9 - 15.5 g/dL [facility] Hct 27.5(L) 35.6 - 45.5 % [facility] Plt 382 150 - 400 K/cumm [facility] MPV 9.4 9.1 - 12.3 fL [facility] RBC 3.27(L) 3.90 - 5.20 M/cumm [facility] MCV 84.1 81.3 - 96.4 fL [facility] MCH 25.4(L) 27.1 - 33.3 pg [facility] MCHC 30.2(L) 32.3 - 35.7 g/dL [facility] RDW CV 18.3(H) 11.1 - 14.9 % [facility] RDW SD 56.6(H) 35.7 - 48.1 fL [facility] NRBC abs 0.00 0.00 - 0.01 K/cumm [facility] Blood 11/30/2023 10:5 5 PM CDT 12/01/2023 12:13 AM CDT us Maxime Lee MD LAB BLOOD ORDERABLES Final R esult Performing Organization Address [facility] Co de Phone Number [facility] [place] [address] * Vitamin D 25 hydroxy (11/30/2023 10:55 PM CDT) Vitamin D 25-OH 39 30 - 80 ng/mL Blood 11/30/2023 10:5 5 PM CDT 12/01/2023 12:14 AM CDT us Suhail Alfredo MD LAB BLOOD ORDERABLES Final Resul t Performing Organization Address [facility] de Phone Number [facility] [place] [address] * Phosphorus (11/30/2023 10:55 PM CDT) Phosphorus, pl 3.0 2.3 - 4.5 mg/dL Blood 11/30/2023 10:5 5 PM CDT 12/01/2023 12:14 AM CDT us Maxime Lee MD LAB BLOOD ORDERABLES Final R esult Performing Organization Address [facility] Co de Phone Number [facility] Department [place] [address] * Magnesium (11/30/2023 10:55 PM CDT) Magnesium 1.8 1.4 - 2.5 mg/dL Blood 11/30/2023 10:5 5 PM CDT 12/01/2023 12:14 AM CDT us Maxime Lee MD LAB BLOOD ORDERABLES Final R esult Performing Organization Address City/[facility]/ZIP Co de Phone Number [facility] Department [place] [address] * (ABNORMAL) Hepatic function panel (11/30/2023 10:55 PM CDT) Bilirubin, total 0.3 0.1 - 1.2 mg/dL Bilirubin, direct <0.2 0.1 - 0.3 mg/dL [facility] Protein, pl 7.1 6.5 - 8.5 g/dL [facility] Albumin 2.5(L) 3.5 - 5.0 g/dL [facility] Alk phos 78 40 - 130 Units/L [facility] ALT 6(L) 7 - 45 Units/L [facility] AST 16 10 - 45 Units/L [facility] Blood 11/30/2023 10:5 5 PM CDT 12/01/2023 12:14 AM CDT Suhail Alferdo MD LAB BLOOD ORDERABLES Final Resul t Performing Organization Address [facility] de Phone Number [facility] Department [place] [address] * (ABNORMAL) Basic metabolic panel (11/30/2023 10:55 PM CDT) Pathologist [facility] Sodium 135 135 - 145 mmol/L Potassium, pl 3.9 3.3 - 4.9 mmol/L [facility] Chloride 100 97 - 110 mmol/L [facility] CO2 25 22 - 32 mmol/L [facility] Anion gap 10 2 - 15 mmol/L [facility] BUN 10 6 - 25 mg/dL [facility] Creatinine 0.74 0.60 - 1.10 mg/dL [facility] Glucose 141 70 - 199 mg/dL [facility] Comment: Interpretive Data Fasting glucose >/= 126 mg/dl is diagnostic for diabetes. ?? Fasting is defined as no caloric intake for at least 8 hours. Fasting glucose between 100 mg/dl to 125 mg/dl is diagnostic of prediabetes. In a patient with classic symptoms of hyperglycemia or hyperglycemic crisis, a random glucose >/= 200 mg/dl is diagnostic for diabetes. In the absence of unequivocal hyperglycemia, results should be confirmed by repeat testing. The classification and Diagnosis of Diabetes Diabetes Care 2021; 46: S19-S40. Current interpretive data was last revised 2022. Calcium 8.4(L) 8.5 - 10.3 mg/dL [facility] Blood 11/30/2023 10:5 5 PM CDT 12/01/2023 12:14 AM CDT us Maxime Lee MD LAB BLOOD ORDERABLES Final R esult Performing Organization Address City/[facility] Co de Phone Number [facility] [place] [employer] [place] [address] * POCT glucose (11/30/2023 9:11 PM CDT) Glucose, POC 147 70 - 199 mg/dL Blood 11/30/2023 9:11 PM CDT 11/30/2023 9:11 PM CDT Suhail Alfredo MD LAB POCT ORDERABLES - DEVICE Fin al Result Performing Organization Address [facility] Co de Phone Number [facility] Department [place] [address] * POCT glucose (11/30/2023 5:26 PM CDT) Glucose, POC 142 70 - 199 mg/dL Blood 11/30/2023 5:26 PM CDT 11/30/2023 5:26 PM CDT Suhail Alfredo MD LAB POCT ORDERABLES - DEVICE Fin al Result Performing Organization Address [facility] Co de Phone Number [facility] [place] [address] * Infection Prevention Angie auris PCR, surveillance Axilla/Groin (11/30/2023 2:27 PM CDT) Angie auris DNA Not Detected Not Detected [facility] Comment: Interpretive Data Testing performed by [facility] using the [employer] Liaison MDX Angie auris assay. ??This assay detects DNA from Angie auris using Real-Time PCR. ??This assay is laboratory developed and is not cleared by the [facility] Food and Drug Administration. ??The performance characteristics have been verified by the [facility]. Interpretive data was last reviewed on 06/11/2023 Axilla/Groin 11/30/2023 2:27 PM CDT 11/30/2023 3:29 PM CDT Eliseo Chapa MD LAB MICROBIOLOGY - GENE RAL ORDERABLES Final Result Performing Organization Address City/[facility] Co de Phone Number [facility] Department [place] [address] [facility] * (ABNORMAL) POCT glucose (11/30/2023 11:53 AM CDT) Glucose, POC 202(H) 70 - 199 mg/dL Comment:Glu2: RN/MD Notified Glucose comment 1 Glu2: RN/MD Notified [facility] Blood 11/30/2023 11:5 3 AM CDT 11/30/2023 11:53 AM CDT Suhail Alfredo MD LAB POCT ORDERABLES - DEVICE Fin al Result Performing Organization Address City/[facility]/ZIP Co de Phone Number [facility] [place] [employer] [place] [address] * POCT glucose (11/30/2023 9:06 AM CDT) Glucose, POC 164 70 - 199 mg/dL Blood 11/30/2023 9:06 AM CDT 11/30/2023 9:06 AM CDT us Suhail Alfredo MD LAB POCT ORDERABLES - DEVICE Fin al Result Performing Organization Address [facility] Co de Phone Number [facility] Department [place] [address] * (ABNORMAL) Calcium, ionized (11/30/2023 8:15 AM CDT) Calcium, Ionized 4.30(L) 4.50 - 5.10 mg/dL Blood 11/30/2023 8:15 AM CDT 11/30/2023 9:18 AM CDT us Suhail Alfredo MD LAB BLOOD ORDERABLES Final Resul t Performing Organization Address [facility] de Phone Number [facility] Department [place] [address] * (ABNORMAL) Cortisol (11/30/2023 8:15 AM CDT) Cortisol 20.1(H) 4.8 - 19.5 mcg/dL Comment: Interpretive Data: Morning hours 6-10 a.m. ??4.8 - 19.5 mcg/dL Afternoon hours 4-8 p.m. ??2.5 - 11.9 mcg/dL This analyte undergoes marked diurnal variation. Current interpretive data was last revised 23. Blood 11/30/2023 8:15 AM CDT 11/30/2023 9:22 AM CDT us Suhail Alfredo MD LAB BLOOD ORDERABLES Final Resul t Performing Organization Address [facility] Co de Phone Number [facility] [place] [employer] [place] [address] * POCT glucose (11/29/2023 9:07 PM CDT) Glucose, POC 173 70 - 199 mg/dL Blood 11/29/2023 9:07 PM CDT 11/29/2023 9:07 PM CDT us Suhail Alfredo MD LAB POCT ORDERABLES - DEVICE Fin al Result Performing Organization Address [facility] de Phone Number [facility] [place] [address] * eGFR (11/29/2023 8:51 PM CDT) eGFR 75 >=60 mL/min/1. 73 m2 Comment: Interpretive Data Reference Interval Normal ?>/= 90 mL/min/1.73m2 Mildly decreased* ? 60 - 89 mL/min/1.73m2 Mildly to moderately decreased ?45 - 59 mL/min/1.73m2 Moderately to severely decreased ??30 - 44 mL/min/1.73m2 Severely decreased ?15 - 29 mL/min/1.73m2 Kidney Failure ?< 15 ??mL/min/1.73m2 *Relative to young adult level Estimated glomerular filtration rate is determined by the 2020 CKD-EPI equation recommended by the National Kidney Foundation (A Unifying Approach to GFR Estimation: Recommendations of the NKF-ASK Task Force on Reassessing the Inclusion of Race in Diagnosing Kidney Disease, JASN 2020). The CKD-EPI equation should not be used for patients with unstable renal function and has not been validated in children and those over 70. Current interpretive data was last reviewed 2020. Blood 11/29/2023 8:51 PM CDT 11/29/2023 9:12 PM CDT us Maxime Lee MD LAB BLOOD ORDERABLES Final R esult Performing Organization Address [facility] de Phone Number GO ROBERT Abdullahi [facility] Department [place] [address] * (ABNORMAL) Differential, auto (11/29/2023 8:51 PM CDT) Neutrophil abs 11.0(H) 1.5 - 6.5 K/cumm Imm gran abs 0.1 0.0 - 0.1 K/cumm [facility] Lymphocyte abs 1.6 0.8 - 3.3 K/cumm [facility] Monocyte abs 1.2(H) 0.2 - 0.8 K/cumm [facility] Eosinophil abs 0.2 0.0 - 0.5 K/cumm [facility] Basophil abs 0.1 0.0 - 0.1 K/cumm [facility] Neutrophil pct 77.4 % [facility] Comment: Interpretive Data Percent cell count reference ranges are not reported, since discordance with absolute values may lead to misinterpretation of CBC data. Current Interpretive Data was last revised on 2017. Imm gran pct 0.6 % [facility] Comment: Interpretive Data Percent cell count reference ranges are not reported, since discordance with absolute values may lead to misinterpretation of CBC data. Current Interpretive Data was last revised on 2017. Lymphocyte pct 11.3 % [facility] Comment: Interpretive Data Percent cell count reference ranges are not reported, since discordance with absolute values may lead to misinterpretation of CBC data. Current Interpretive Data was last revised on 2017. Monocyte pct 8.7 % [facility] Comment: Interpretive Data Percent cell count reference ranges are not reported, since discordance with absolute values may lead to misinterpretation of CBC data. Current Interpretive Data was last revised on 2017. Eosinophil pct 1.6 % [facility] Comment: Interpretive Data Percent cell count reference ranges are not reported, since discordance with absolute values may lead to misinterpretation of CBC data. Current Interpretive Data was last revised on 2017. Basophil pct 0.4 % [facility] Comment: Interpretive Data Percent cell count reference ranges are not reported, since discordance with absolute values may lead to misinterpretation of CBC data. Current Interpretive Data was last revised on 2017. Blood 11/29/2023 8:51 PM CDT 11/29/2023 9:12 PM CDT us Maxime Lee MD LAB BLOOD ORDERABLES Final R esult Performing Organization Address City/[facility]/ZIP Co de Phone Number [facility] Department [place] [address] * (ABNORMAL) CBC with auto differential (11/29/2023 8:51 PM CDT) Pathologist [facility] WBC 14.2(H) 3.8 - 9.9 K/cumm Hgb 7.5(L) 11.9 - 15.5 g/dL [facility] Hct 24.3(L) 35.6 - 45.5 % [facility] Plt 443(H) 150 - 400 K/cumm [facility] MPV 8.4(L) 9.1 - 12.3 fL [facility] RBC 2.91(L) 3.90 - 5.20 M/cumm [facility] MCV 83.5 81.3 - 96.4 fL [facility] MCH 25.8(L) 27.1 - 33.3 pg [facility] MCHC 30.9(L) 32.3 - 35.7 g/dL [facility] RDW CV 18.3(H) 11.1 - 14.9 % [facility] RDW SD 55.5(H) 35.7 - 48.1 fL [facility] NRBC abs 0.00 0.00 - 0.01 K/cumm [facility] Blood 11/29/2023 8:51 PM CDT 11/29/2023 9:12 PM CDT us Maxime Lee MD LAB BLOOD ORDERABLES Final R esult [facility] [place] [address] * Phosphorus (11/29/2023 8:51 PM CDT) Pathologist [facility] Phosphorus, pl 2.7 2.3 - 4.5 mg/dL Blood 11/29/2023 8:51 PM CDT 11/29/2023 9:12 PM CDT Maxime Lee MD LAB BLOOD ORDERABLES Final R esult Performing Organization Address City/[facility]/ZIP Co de Phone Number [facility] [place] [address] * Magnesium (11/29/2023 8:51 PM CDT) [facility] Magnesium 1.7 1.4 - 2.5 mg/dL Blood 11/29/2023 8:51 PM CDT 11/29/2023 9:12 PM CDT Maxime Lee MD LAB BLOOD ORDERABLES [facility] Performing Organization Address [facility] Co de Phone Number [facility] [place] [employer] [place] [address] * (ABNORMAL) Basic metabolic panel (11/29/2023 8:51 PM CDT) [facility] Sodium 131(L) 135 - 145 mmol/L Potassium, pl 4.0 3.3 - 4.9 mmol/L [facility] Chloride 101 97 - 110 mmol/L [facility] CO2 24 22 - 32 mmol/L [facility] Anion gap 6 2 - 15 mmol/L [facility] BUN 12 6 - 25 mg/dL [facility] Creatinine 0.86 0.60 - 1.10 mg/dL [facility] Glucose 163 70 - 199 mg/dL [facility] Comment: Interpretive Data Fasting glucose >/= 126 mg/dl is diagnostic for diabetes. ?? Fasting is defined as no caloric intake for at least 8 hours. Fasting glucose between 100 mg/dl to 125 mg/dl is diagnostic of prediabetes. In a patient with classic symptoms of hyperglycemia or hyperglycemic crisis, a random glucose >/= 200 mg/dl is diagnostic for diabetes. In the absence of unequivocal hyperglycemia, results should be confirmed by repeat testing. The classification and Diagnosis of Diabetes Diabetes Care 2021; 46: S19-S40. Current interpretive data was last revised 2022. Calcium 7.9(L) 8.5 - 10.3 mg/dL [facility] Blood 11/29/2023 8:51 PM CDT 11/29/2023 9:12 PM CDT us Maxime Lee MD LAB BLOOD ORDERABLES Final R esult Performing Organization Address City/[facility] Co de Phone Number [facility] [place] [employer] [place] [place] [address] * POCT glucose (11/29/2023 4:20 PM CDT) Glucose, POC 185 70 - 199 mg/dL Blood 11/29/2023 4:20 PM CDT 11/29/2023 4:20 PM CDT us Suhail Alfredo MD LAB POCT ORDERABLES - DEVICE Fin al Result Performing Organization Address [facility] Co de Phone Number [facility] [place] [employer] [place] [address] * POCT glucose (11/29/2023 8:28 AM CDT) Glucose, POC 137 70 - 199 mg/dL Blood 11/29/2023 8:28 AM CDT 11/29/2023 8:28 AM CDT Suhail Alfredo MD LAB POCT ORDERABLES - DEVICE Fin al Result Performing Organization Address [facility] Co de Phone Number [facility] [place] [employer] [address] * Mold Blood Culture Blood (11/29/2023 12:58 AM CDT) Report Final Report: No growth Blood 11/29/2023 12:5 8 AM CDT 11/29/2023 4:07 AM CDT Narrative GO [facility] - 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 The first report of a negative culture is issued within 24 hours of receipt of the specimen in the laboratory. Positive cultures of yeast and filamentous fungi are sub-cultured for reporting organism identification and antimicrobial susceptibility testing, if appropriate. Correlation of culture results and the clinical situation is required for optimal patient management. Testing performed by [facility] ([phone]). Current interpretive data was last revised on 2023. us Suhail Alfredo MD LAB MICROBIOLOGY - GENERAL ORDER INO Final Result [facility] [place] [address] * eGFR (11/29/2023 12:46 AM CDT) eGFR 79 >=60 mL/min/1. 73 m2 Comment: Interpretive Data Reference Interval Normal ?>/= 90 mL/min/1.73m2 Mildly decreased* ? 60 - 89 mL/min/1.73m2 Mildly to moderately decreased ?45 - 59 mL/min/1.73m2 Moderately to severely decreased ??30 - 44 mL/min/1.73m2 Severely decreased ?15 - 29 mL/min/1.73m2 Kidney Failure ?< 15 ??mL/min/1.73m2 *Relative to young adult level Estimated glomerular filtration rate is determined by the 2020 CKD-EPI equation recommended by the National Kid[employer] (A Unifying Approach to GFR Estimation: Recommendations of the NKF-ASK Task Force on Reassessing the Inclusion of Race in Diagnosing Kidney Disease, JASN 2020). The CKD-EPI equation should not be used for patients with unstable renal function and has not been validated in children and those over 70. Current interpretive data was last reviewed 2020. Blood 11/29/2023 12:4 6 AM CDT 11/29/2023 1:06 AM CDT us Maxime Lee MD LAB BLOOD ORDERABLES Final R esult [facility] Department [place] [address] * (ABNORMAL) Differential, auto (11/29/2023 12:46 AM CDT) Neutrophil abs 12.3(H) 1.5 - 6.5 K/cumm Imm gran abs 0.1 0.0 - 0.1 K/cumm [facility] Lymphocyte abs 3.0 0.8 - 3.3 K/cumm [facility] Monocyte abs 1.5(H) 0.2 - 0.8 K/cumm [facility] Eosinophil abs 0.3 0.0 - 0.5 K/cumm [facility] Basophil abs 0.1 0.0 - 0.1 K/cumm [facility] Neutrophil pct 71.4 % [facility] Comment: Interpretive Data Percent cell count reference ranges are not reported, since discordance with absolute values may lead to misinterpretation of CBC data. Current Interpretive Data was last revised on 2017. Imm gran pct 0.8 % [facility] Comment: Interpretive Data Percent cell count reference ranges are not reported, since discordance with absolute values may lead to misinterpretation of CBC data. Current Interpretive Data was last revised on 2017. Lymphocyte pct 17.3 % [facility] Comment: Interpretive Data Percent cell count reference ranges are not reported, since discordance with absolute values may lead to misinterpretation of CBC data. Current Interpretive Data was last revised on 2017. Monocyte pct 8.6 % [facility] Comment: Interpretive Data Percent cell count reference ranges are not reported, since discordance with absolute values may lead to misinterpretation of CBC data. Current Interpretive Data was last revised on 2017. Eosinophil pct 1.5 % [facility] Comment: Interpretive Data Percent cell count reference ranges are not reported, since discordance with absolute values may lead to misinterpretation of CBC data. Current Interpretive Data was last revised on 2017. Basophil pct 0.4 % [facility] Comment: Interpretive Data Percent cell count reference ranges are not reported, since discordance with absolute values may lead to misinterpretation of CBC data. Current Interpretive Data was last revised on 2017. Blood 11/29/2023 12:4 6 AM CDT 11/29/2023 1:06 AM CDT us Maxime Lee MD LAB BLOOD ORDERABLES Final R esult [facility] [place] [address] * (ABNORMAL) CBC with auto differential (11/29/2023 12:46 AM CDT) WBC 17.2(H) 3.8 - 9.9 K/cumm Hgb 8.0(L) 11.9 - 15.5 g/dL [facility] Hct 27.2(L) 35.6 - 45.5 % [facility] Plt 511(H) 150 - 400 K/cumm [facility] MPV 8.4(L) 9.1 - 12.3 fL [facility] RBC 3.18(L) 3.90 - 5.20 M/cumm [facility] MCV 85.5 81.3 - 96.4 fL [facility] MCH 25.2(L) 27.1 - 33.3 pg [facility] MCHC 29.4(L) 32.3 - 35.7 g/dL [facility] RDW CV 18.0(H) 11.1 - 14.9 % [facility] RDW SD 56.4(H) 35.7 - 48.1 fL [facility] NRBC abs 0.00 0.00 - 0.01 K/cumm [facility] Blood 11/29/2023 12:4 6 AM CDT 11/29/2023 1:06 AM CDT Maxime Lee MD LAB BLOOD ORDERABLES Final R esult Performing Organization Address [facility] Co de Phone Number [facility] [place] [employer] [place] [place] [address] * Phosphorus (11/29/2023 12:46 AM CDT) Pathologist [facility] Phosphorus, pl 3.5 2.3 - 4.5 mg/dL Blood 11/29/2023 12:4 6 AM CDT 11/29/2023 1:06 AM CDT us Maxime Lee MD LAB BLOOD ORDERABLES Final R esult Performing Organization Address [facility] Co de Phone Number [facility] [place] [employer] [place] [address] * Magnesium (11/29/2023 12:46 AM CDT) [facility] Magnesium 2.0 1.4 - 2.5 mg/dL Blood 11/29/2023 12:4 6 AM CDT 11/29/2023 1:06 AM CDT Maxime Lee MD LAB BLOOD ORDERABLES Final R esult Performing Organization Address City/[facility] Co de Phone Number [facility] [place] [employer] [place] [address] * (ABNORMAL) Basic metabolic panel (11/29/2023 12:46 AM CDT) Pathologist [facility] Sodium 135 135 - 145 mmol/L Potassium, pl 4.3 3.3 - 4.9 mmol/L [facility] Chloride 101 97 - 110 mmol/L [facility] CO2 28 22 - 32 mmol/L [facility] Anion gap 6 2 - 15 mmol/L [facility] BUN 15 6 - 25 mg/dL [facility] Creatinine 0.82 0.60 - 1.10 mg/dL [facility] Glucose 97 70 - 199 mg/dL [facility] Comment: Interpretive Data Fasting glucose >/= 126 mg/dl is diagnostic for diabetes. ?? Fasting is defined as no caloric intake for at least 8 hours. Fasting glucose between 100 mg/dl to 125 mg/dl is diagnostic of prediabetes. In a patient with classic symptoms of hyperglycemia or hyperglycemic crisis, a random glucose >/= 200 mg/dl is diagnostic for diabetes. In the absence of unequivocal hyperglycemia, results should be confirmed by repeat testing. The classification and Diagnosis of Diabetes Diabetes Care 2021; 46: S19-S40. Current interpretive data was last revised 2022. Calcium 8.4(L) 8.5 - 10.3 mg/dL [facility] Blood 11/29/2023 12:4 6 AM CDT 11/29/2023 1:06 AM CDT us Maxime Lee MD LAB BLOOD ORDERABLES Final R esult Performing Organization Address City/[facility]/ZIP Co de Phone Number [facility] [place] [employer] [place] [address] * POCT glucose (11/28/2023 8:35 PM CDT) Glucose, POC 129 70 - 199 mg/dL Blood 11/28/2023 8:35 PM CDT 11/28/2023 8:35 PM CDT us Suhail Alfredo MD LAB POCT ORDERABLES - DEVICE Fin al Result [facility] [place] [place] [address] * POCT glucose (11/28/2023 4:45 PM CDT) Glucose, POC 127 70 - 199 mg/dL Blood 11/28/2023 4:45 PM CDT 11/28/2023 4:45 PM CDT us Suhail Alfredo MD LAB POCT ORDERABLES - DEVICE Fin al Result Performing Organization Address [facility] Co de Phone Number [facility] [place] [address] * (ABNORMAL) Calprotectin, fecal (11/28/2023 4:13 PM CDT) Calprotectin, fecal >3000(H) <50.0 (Normal) mcg/g [facility] Comment: Interpretation: Abnormal (>120 mcg/g) Test Performed by: [facility] [address] [place] [address] Office Nurse: Rach Guillermo Ph.D.; CLIA# [id number] Stool 11/28/2023 4:13 PM CDT 11/28/2023 7:49 PM CDT us Suhail Alfredo MD LAB BODY FLUIDS AND STOOLS ORDER INO Final Result Performing Organization Address [facility] Co de Phone Number [facility] [place] [employer] [address] [facility] * Calcium, ionized (11/28/2023 4:13 PM CDT) Calcium, Ionized 4.54 4.50 - 5.10 mg/dL Blood 11/28/2023 4:13 PM CDT 11/28/2023 4:22 PM CDT us Suhail Alfredo MD LAB BLOOD ORDERABLES Final Resul t Performing Organization Address [facility] Co de Phone Number [facility] [place] [address] * (ABNORMAL) Leukocytes, fecal (11/28/2023 4:13 PM CDT) WBC, fecal Few leukocyte s(A) No leukocytes Comment: Interpretive Data Testing performed by microsopy. Current Interpretive Data was last revised on 2022 Stool 11/28/2023 4:13 PM CDT 11/28/2023 6:17 PM CDT Suhail Alfredo MD LAB BODY FLUIDS AND STOOLS ORDER INO Final Result Performing Organization Address [facility] de Phone Number [facility] [place] [employer] [place] [place] [address] * Histoplasma Antigen Urine (11/28/2023 3:00 PM CDT) Pathologist [facility] Histo Ag Ur result None Detected None Detected Histo Ag Ur interp Negative Negative [facility] Comment: Result Interpretation: Reference interval: None Detected Results reported as ng/mL in 0.20 - 20.00 ng/mL range Results above 20.00 ng/mL are reported as 'Positive, Above the Limit of Quantification' Testing Performed by: [employer], [address] [place] [address] [facility]. This test was developed and its performance characteristics determined by [employer]. It has not been cleared or approved by the FDA; however, FDA clearance or approval is not currently required for clinical use. The results are not intended to be used as the sole means for clinical diagnosis or patient management decisions. Interpretative data updated 04/17/2020 Urine 11/28/2023 3:00 PM CDT 11/28/2023 6:42 PM CDT Suhail Alfredo MD LAB MICROBIOLOGY - GENERAL ORDER INO Final Result Performing Organization Address [facility] Co de Phone Number [facility] [place] [place] [address] * X-ray chest 1 view (Portable) (11/28/2023 12:47 PM CDT) Anatomical Region Laterality Modality Body, Chest N/A Computed Radiogr aphy 11/28/2023 1:41 PM CDT Impressions 11/28/2023 2:04 PM CDT The current study is compared with the prior radiograph dated 11/04/2023. ??Also reviewed CT 11/26/2023. Patient is status post bronchoscopy and left-sided biopsies. Right lung is clear. ??Multiple left-sided pulmonary nodules and small left pleural effusion, better characterized on recent CT. Additionally, there are post bronchoscopy and post biopsy changes. No right pleural effusion. ??No pneumothorax. ??The cardiomediastinal silhouette is partially obscured but stable. Dictated by: Nicolas Sharma MD The radiology attending physician has personally reviewed this study, and had reviewed and/or edited this written report and agrees with it. Electronically signed by: Clemencia Grayson M.D. Narrative 11/28/2023 2:04 PM CDT EXAMINATION: 1 view chest radiograph Procedure Note Clemencia Grayson MD - 11/28/2023 EXAMINATION: 1 view chest radiograph IMPRESSION: The current study is compared with the prior radiograph dated 11/04/2023. Also reviewed CT 11/26/2023. Patient is status post bronchoscopy and left-sided biopsies. Right lung is clear. Multiple left-sided pulmonary nodules and small left pleural effusion, better characterized on recent CT. Additionally, there are post bronchoscopy and post biopsy changes. No right pleural effusion. No pneumothorax. The cardiomediastinal silhouette is partially obscured but stable. Dictated by: Nicolas Sharma MD The radiology attending physician has personally reviewed this study, and had reviewed and/or edited this written report and agrees with it. Electronically signed by: Clemencia Grayson M.D. Ricky Vasquez MD IMG XR PROCEDURES Final Result * POCT glucose (11/28/2023 11:50 AM CDT) Glucose, POC 149 70 - 199 mg/dL Blood 11/28/2023 11:5 0 AM CDT 11/28/2023 11:50 AM CDT us Suhail Alfredo MD LAB POCT ORDERABLES - DEVICE Fin al Result [facility] [place] [address] * Pneumonia PCR Bronchoalveolar lavage Lobe, left upper (11/28/2023 11:02 AM CDT) C. pneumoniae DNA Not Detected Not Detected Legionella pneumophila DNA Not Detected Not Detected [facility] M. pneumoniae DNA Not Detected Not Detected [facility] Adenovirus DNA Not Detected Not Detected [facility] Coronavirus (229E, OC43, HKU1, NL63) RNA Not Detected Not Detected [facility] Metapneumovirus RNA Not Detected Not Detected [facility] Rhinovirus/Enterov irus RNA Not Detected Not Detected [facility] Influenza A RNA Not Detected Not Detected [facility] Influenza B RNA Not Detected Not Detected [facility] Parainfluenza virus (1-4) RNA Not Detected Not Detected [facility] RSV RNA Not Detected Not Detected [facility] Bronchoalveolar lavage (Lobe, left upper) 11/28/2023 11:02 AM CDT 11/28/2023 2:27 PM CDT Narrative [facility] - 11/28/2023 3:54 PM CDT The [employer] Pneumonia Panel is a multiplexed nucleic acid test capable of simultaneous detection and identification of multiple respiratory viruses and bacteria. ??This panel detects Adenovirus, coronaviruses (Coronavirus HKU1, Coronavirus NL63, Coronavirus 229E, and Coronavirus OC43), Influenza A, Influenza B, Human metapneumovirus, Parainfluenza (1-4), RSV, Rhinovirus/Enterovirus, Chlamydia pneumoniae, Mycoplasma pneumoniae, and Legionella pneumophila. Additional aerobic bacterial targets are reported with the accompanying culture results with the same accession number. Rhinovirus and Enterovirus are genetically similar and cannot be reliably differentiated with this method. Negative adenovirus results should be confirmed by an alternative methodology (i.e. standalone PCR) if the suspicion for adenovirus infection is high. ??The results of this test must be considered in the clinical context of the patient and should not be used as the sole basis for diagnosis, treatment, or other management decisions. ??Negative results in the setting of a respiratory illness may be due to infection with pathogens that are not detected by this test. ??Positive results do not rule out infection/co-infection with other organisms. The [employer] Pneumonia Panel is FDA cleared for lower respiratory tract specimens. The performance characteristics of this assay have been determined by [facility]. Current interpretive data was last revised on 2023. Suhail Alfredo MD LAB MICROBIOLOGY - GENERAL ORDER INO Final Result [facility] Department [place] [address] * Pneumonia PCR with aerobic culture and Gram stain Bronchoalveolar lavage Lobe, left upper (11/28/2023 11:02 AM CDT) Direct Specimen Exam Molecular Analysis: No bacterial targets detected by molecular analysis. A negative molecular panel strongly supports discontinuation of anti-MRSA and anti-pseudomonal therapy for the treatment of pneumonia due to MRSA and P. aeruginosa (refer to interpretive data for full list of targets evaluated). Correlation of molecular analysis with culture results is recommended. Direct Specimen Exam Stain: Cytospin Gram stain shows: Few polymorphonuclear leukocytes seen. Few squamous epithelial cells seen. Other cellular material present. Rare mixed bacterial noah seen on Gram stain. [facility] Report Final Report: Growth indicates upper respiratory noah. [facility] Organism GROWTH INDICATES UPPER RESPIRATORY NOAH. [facility] Bronchoalveolar lavage (Lobe, left upper) 11/28/2023 11:02 AM CDT 11/28/2023 1:12 PM CDT Narrative [facility] - 12/01/2023 3:07 PM CDT When rapid molecular testing results are reported, testing completed using the [employer] Pneumonia Panel. ??This molecular assay detects: Acinetobacter calcoaceticus-baumannii complex, Enterobacter cloacae complex, Escherichia coli, Haemophilus influenzae, Enterobacter (Klebsiella) aerogenes, ??Klebsiella oxytoca, Klebsiella pneumoniae group, Moraxella catarrhalis, Proteus spp., Pseudomonas aeruginosa, Serratia marcescens, Staphylococcus aureus, Streptococcus agalactiae, Streptococcus pneumoniae, and Streptococcus pyogenes. ?? These bacteria are detected and reported semi-quantitatively with bins representing approximately 10^4, 10^5, 10^6, or greater than or equal to 10^7 genomic copies of bacterial nucleic acid per mL (copies/mL) of specimen. ??These quantities are reported to aid in estimating the relative abundance of organism(s) detected within the specimen and to correlate these results with culture results. ?? For Staphylococcus aureus, mecA/C and MREJ genes are evaluated to predict methicillin resistance or susceptibility. ??For Gram-negative bacteria, the beta-lactamases CTX-M, IMP, KPC, NDM, VIM and OXA-48-like are evaluated and reported if detected. ??For Gram-negative organisms, the absence of detection of resistance markers does not exclude resistance. ?? Correlation with final culture results and susceptibility testing is recommended. The [employer] Pneumonia Panel is cleared by the [place] Food and Drug Administration and its performance characteristics have been confirmed by the [facility]. ??The performance of the [employer] Pneumonia Panel has not been established for monitoring treatment of infection and bacterial nucleic acids may persist independent of organism viability. Suhail Alfredo MD LAB MICROBIOLOGY - GENERAL ORDER INO Final Result [facility] [place] [address] * Cytomegalovirus (CMV) PCR qualitative Bronchoalveolar lavage Lobe, left upper (11/28/2023 11:02 AM CDT) CMV DNA Not Detected Not Detected [facility] Comment: Interpretive Data: This assay tests for the presence of CMV. ??This test is laboratory developed and its performance characteristics were determined by the performing laboratory in a manner consistent with CLIA requirements. This test has not been cleared or approved by the U.S. Food and Drug Administration. Current Interpretive Data was last revised on 2019. Bronchoalveolar lavage (Lobe, left upper) 11/28/2023 11:02 AM CDT 11/28/2023 1:47 PM CDT Suhail Alfredo MD LAB MICROBIOLOGY - GENERAL ORDER INO Final Result Performing Organization Address [facility] [place] [address] [facility] * Adenovirus PCR qualitative Bronchoalveolar lavage (11/28/2023 11:02 AM CDT) Pathologist [facility] Adenovirus DNA Not Detected Not Detected [facility] Comment: Interpretive Data: This assay tests for the presence of Adenovirus. ??This test is laboratory developed and its performance characteristics were determined by the performing laboratory in a manner consistent with CLIA requirements. This test has not been cleared or approved by the U.S. Food and Drug Administration. Current Interpretive Data was last revised on 2019. Bronchoalveolar lavage 11/27 11:02 AM CDT 11/28/2023 1:47 PM CDT Suhail Alfredo MD LAB MICROBIOLOGY - GENERAL ORDER INO Final Result Performing Organization Address [facility] de Phone Number [facility] [place] [address] [facility] * Cell Differential, Body Fluid (11/28/2023 11:02 AM CDT) Pathologist [facility] Total cells diffed 100 cells Comment: Interpretive Data Unless otherwise specified, the reference range and other method performance specifications have not been established for CSF/Body Fluid tests. ??The test results should be integrated into the clinical context for interpretation. Current interpretive data was last revised on 2018. Neutrophils, fld 62 % [facility] Lymphs, fld 1 % [facility] Monocyte, fld 3 % [facility] Macrophages, fld 34 % [facility] Fluid 11/28/2023 11:0 2 AM CDT 11/28/2023 12:51 PM CDT us Suhail Alfredo MD LAB BODY FLUIDS AND STOOLS ORDER INO Final Result Performing Organization Address [facility] Co de Phone Number [facility] [place] [address] * Cell count w/rflx diff, body fluid (11/28/2023 11:02 AM CDT) Specimen type, fld Bronchial Body site, fld Bronch Lavage [facility] Color, fld Straw [facility] Clarity, fld Clear Clear [facility] Nucleated cells, fld 751 /cumm [facility] Comment: Interpretive Data Unless otherwise specified, the reference range and other method performance specifications have not been established for CSF/Body Fluid tests. ??The test results should be integrated into the clinical context for interpretation. Current interpretive data was last revised on 2018. RBC, fld 0 /cumm [facility] Fluid 11/28/2023 11:0 2 AM CDT 11/28/2023 12:51 PM CDT Suhail Alfredo MD LAB BODY FLUIDS AND STOOLS ORDER INO Final Result [facility] Department [place] [address] * Aerobic culture and gram stain Bronchial washing Lobe, left upper (11/28/2023 11:02 AM CDT) Pathologist [facility] Direct Specimen Exam Stain: Cytospin Gram stain shows: Abundant polymorphonuclear leukocytes seen. Abundant squamous epithelial cells seen indicating excessive oral pharyngeal contamination Other cellular material present. Rare mixed bacterial noah seen on Gram stain. Report Final Report: Growth indicates upper respiratory noah. [facility] Organism GROWTH INDICATES UPPER RESPIRATORY NOAH. [facility] Bronchial washing (Lobe, left upper) 11/28/2023 11:02 AM CDT 11/28/2023 12:58 PM CDT Narrative [facility] - 12/01/2023 2:39 PM CDT Testing performed by [facility] ([phone]) Specimens submitted from normally sterile body sites will have all bacterial morphotypes identified. ??Specimens that contain grossly mixed noah and/or are from body sites that are not normally sterile will be examined for Staphylococcus aureus, Pseudomonas aeruginosa, beta-hemolytic strep, vancomycin-resistant Enterococcus and fungus. ??If any of these are isolated, the organism will be reported. Current interpretive data was last revised on 2016. us Suhail Alfredo MD LAB MICROBIOLOGY - GENERAL ORDER INO Final Result Performing Organization Address [facility] Co de Phone Number [facility] [place] [address] * Mycology (fungal) culture Bronchial washing Lobe, left upper (11/28/2023 11:02 AM CDT) Report Final Report: No growth of fungus Bronchial washing (Lobe, left upper) 11/28/2023 11:02 AM CDT 11/28/2023 12:58 PM CDT Narrative [facility] - 12/26/2023 8:05 AM [employer] Testing performed by [facility] ([phone]). us Suhail Alfredo MD LAB MICROBIOLOGY - GENERAL ORDER INO Final Result Performing Organization Address [facility] [place] [address] * Mycology (fungal) culture Bronchoalveolar lavage Bronchial (11/28/2023 11:02 AM CDT) Report Final Report: No growth of fungus Bronchoalveolar lavage (Bronchial) 11/28/2023 11:02 AM CDT 11/28/2023 1:12 PM CDT Narrative [facility] - 12/26/2023 8:05 AM BAG LOADER MACHINE OPERATOR Testing performed by [facility] ([phone]). us Suhail Alfredo MD LAB MICROBIOLOGY - GENERAL ORDER INO Final Result Performing Organization Address City/[facility] Co de Phone Number [facility] [place] [employer] [place] [address] * Mycobacteriology (AFB) culture and acid-fast stain Bronchial washing Lobe, left upper (11/28/2023 11:02 AM CDT) Direct Specimen Exam Stain: No Acid-fast bacilli seen Report Final Report: No growth of acid-fast bacilli [facility] Bronchial washing (Lobe, left upper) 11/28/2023 11:02 AM CDT 11/28/2023 12:58 PM CDT Narrative [facility] - 01/26/2024 9:26 AM BAG LOADER MACHINE OPERATOR Testing performed by [facility] ([phone]). us Suhail Alfredo MD LAB MICROBIOLOGY - GENERAL ORDER INO Final Result Performing Organization Address [facility] Co de Phone Number [facility] [place] [address] * Mycobacteriology (AFB) culture and acid-fast stain Bronchoalveolar lavage Lobe, left upper (11/28/2023 11:02 AM CDT) Direct Specimen Exam Stain: No Acid-fast bacilli seen Report Final Report: No growth of acid-fast bacilli [facility] Bronchoalveolar lavage (Lobe, left upper) 11/28/2023 11:02 AM CDT 11/28/2023 1:12 PM CDT Narrative [facility] - 01/26/2024 9:26 AM BAG LOADER MACHINE OPERATOR Testing performed by [facility] ([phone]). us Suhail Alfredo MD LAB MICROBIOLOGY - GENERAL ORDER INO Final Result Performing Organization Address City/[facility]/ZIP Co de Phone Number [facility] [place] [address] * Pneumocystis DFA Bronchial washing (11/28/2023 11:02 AM CDT) Report Direct Stain Examination - Final: Negative for: Pneumocystis jirovecii Bronchial washing 11/28/2023 11:02 AM CDT 11/28/2023 12:58 PM CDT Narrative [facility] - 11/29/2023 1:38 PM CDT The Pneumocystis organisms found in humans were originally referred to as P. carinii f. sp. Hominis, the subspecies name used to distinguish the Pneumocystis organisms found in humans from the Pneumocystis organisms found in other mammals. ??Recently the Pneumocystis organisms found in humans was recognized as a distinct species and renamed Pneumocystis jirovecii. Current interpretive data was last revised on 07. Suhail Alfredo MD LAB MICROBIOLOGY - GENERAL ORDER INO Final Result Performing Organization Address [facility] Co de Phone Number [facility] [place] [address] * Pneumocystis DFA Bronchoalveolar lavage (11/28/2023 11:02 AM CDT) Report Direct Stain Examination - Final: Negative for: Pneumocystis jirovecii Bronchoalveolar lavage 11/27 11:02 AM CDT 11/28/2023 1:12 PM CDT Narrative [facility] 11/29/2023 1:38 PM CDT The Pneumocystis organisms found in humans were originally referred to as P. carinii f. sp. Hominis, the subspecies name used to distinguish the Pneumocystis organisms found in humans from the Pneumocystis organisms found in other mammals. ??Recently the Pneumocystis organisms found in humans was recognized as a distinct species and renamed Pneumocystis jirovecii. Current interpretive data was last revised on 07. us Suhail Alfredo MD LAB MICROBIOLOGY - GENERAL ORDER INO Final Result Performing Organization Address [facility] Co de Phone Number [facility] [place] [address] * Legionella culture Bronchoalveolar lavage (11/28/2023 11:02 AM CDT) Report Final Report: Negative Bronchoalveolar lavage 11/27 11:02 AM CDT 11/28/2023 1:12 PM CDT Suhail Alfredo MD LAB MICROBIOLOGY - GENERAL ORDER INO Final Result [facility] [place] [address] * Cytology (11/28/2023 10:48 AM CDT) Fluid (Bronch Lavage (Cytology)) 11/28/2023 10:48 AM CDT 11/28/2023 1:10 PM CDT Narrative PATHOLOGY [facility] - 12/02/2023 2:20 PM CDT EPIC results best viewed via link to PDF [facility] [place] [address] Note to Patients: This report may contain a detailed description of human tissue sent by a health care provider to the laboratory for pathologic evaluation. The content of this report is essential for diagnosis and may provide important critical findings. This information may be unfamiliar to patients to review without a medical professional present. It is advised that the patient review this report in the presence of a health care provider who can answer questions and explain the details. CYTOPATHOLOGY REPORT FINAL Patient Name: ?? DARIUS RUSSO Gender: ??F : ??1960 (Age: 63) Address: ??[address] [place] [address] ??[id number] Hospital #: ??[id number] Taken:11/28/2023 Received:11/28/2023 Reported: 12/02/2023 Patient Type: [facility] Inpatient ?? Service: Medical Location: [place] [address] Physician(s): ??Monserrat Bautista M.D. Kaushal Heath M.D. FINAL DIAGNOSIS Bronchoalveolar lavage, left ? - Negative for malignancy or opportunistic infection 12/02/2023 12:49 By this signature, I attest that the above diagnosis is based upon my personal examination of the slides(and/or other material indicated in the diagnosis). Lindsay Martinez M.D. Report Electronically Reviewed and Signed Out By ??Lindsay Martinez M.D. 12/02/2023 14:20:18 John Ortega [facility](ASCP) Gross Description A. ??Bal, left: ? 10 ml of cloudy fluid - 1 Pap stained ThinPrep. (pc) Clinical Diagnosis and History The patient is a 63 year old woman with inflammatory bowel disease, now with recurrent diverticulitis and contained colonic perforation, cavitary lung lesions and associated lymphanenopathy. Patent also has liver, spleen, and adnexal lesions. REPORT IMAGES AND SCANNED DOCUMENTS, IF INCLUDED, ONLY VIEWABLE IN PDF VERSION OF REPORT The performance characteristics of some immunohistochemical stains, in-situ hybridization and fluorescence in-situ hybridization tests and immunophenotyping by flow cytometry cited in this report (if any) were determined by the Surgical Pathology and Flow Cytometry Departments at [facility] as part of an ongoing quality assurance tech program and in compliance with federally mandated regulations drawn from the Clinical Laboratory Improvement Act of 1988 (CLIA '88). ??Some of these tests rely on the use of analyte specific reagents and are subject to specific labeling requirements by the US Food and Drug Administration. ??Such diagnostic tests may only be performed in a facility that is certified by the Department of Health and Human Services as a high complexity laboratory under CLIA '88. ??The FDA has determined that such clearance or approval is not necessary. ??This test is used for clinical purposes. ??It should not be regarded as investigational or for research. ??Nevertheless, federal rules concerning the medical use of analyte specific reagents require that the following disclaimer be attached to the report: ??This test was developed and its performance characteristics determined by the Surgical Pathology and Flow Cytometry Departments of [facility]. ??It has not been cleared or approved by the U. S. Food and Drug Administration. us Suhail Alfredo MD LAB CYTOLOGY ORDERABLES Final Re sult PATHOLOGY [facility] [address] Floor [place], [place] [phone] * Surgical pathology (11/28/2023 10:48 AM CDT) Tissue (Lung Biopsy) 11/28/2023 10:48 AM CDT 11/28/2023 1:09 PM CDT Narrative PATHOLOGY [facility] - 12/02/2023 11:21 AM CDT EPIC results best viewed via link to PDF [facility] [place] [address] Note to Patients: This report may contain a detailed description of human tissue sent by a health care provider to the laboratory for pathologic evaluation. The content of this report is essential for diagnosis and may provide important critical findings. This information may be unfamiliar to patients to review without a medical professional present. It is advised that the patient review this report in the presence of a health care provider who can answer questions and explain the details. SURGICAL PATHOLOGY REPORT FINAL WITH ADDENDUM Patient Name: ?? DARIUS RUSSO Gender: ??F : ??1960 (Age: 63) Address: ??[address] [place] [address] ??[id number] Hospital #: ??[id number] Taken:11/28/2023 Received:11/28/2023 Reported: 12/02/2023 Patient Type: [facility] Inpatient ?? Service: Medical Location: [place] [address] Physician(s): ??Marlene Pierre M.D. Suhail Alfredo M.D. Diagnosis: Lung, left upper lobe, biopsy ? - Organizing lung injury and bronchiolitis, see comment 11/30/2023 13:32 By this signature, I attest that the above diagnosis is based upon my personal examination of the slides(and/or other material indicated in the diagnosis). Abraham Draper MD PhD Report Electronically Reviewed and Signed Out By ??Abraham Draper MD PhD 12/02/2023 11:21:33 Microscopic Description and Comment: Sections show alveolated lung parenchyma with widen septae, increased interstitial inflammatory infiltration, type II pneumonocyte hyperplasia, increased alveolar foamy macrophages and rare microthrombi. Bronchiolitis with predominant chronic inflammation is also noted. We do not see definitive evidence of vasculitis/endotheliolitis, viral cytopathic changes, granulomatous inflammation, necrosis or malignancy. Special stains for GMS, AFB, and trichrome were performed with proper controls. ??GMS and AFB stains show no fungal organisms or acid-fast bacteria. The trichrome stain shows no significant increase of interstitial fibrosis. Overall the findings are those of organizing lung injury, with the differential diagnosis including infectious etiology, autoimmune, or drug-induced. Correlation with imaging findings and microbiology study is strongly recommended. Boogie Dhaliwal M.D. History: The patient is a 63-year-old woman presenting for ulcerative colitis versus Crohn's presenting with weight loss cough and new FRANKLIN peribronchial opacities. ??Operative procedure: ??Bronchoscopy with TB Bx. Specimen(s) Received: A: Left upper lobe lingula Gross Description: Received in formalin, labeled with the patient? ? s identifiers and TB Bx lingula x6 ??and consists of multiple dupree-red fragment(s) of soft tissue with an aggregate measurement of 0.9 x 0.5 x 0.1 cm. Labeled A1. Jar 0. [facility]/11/28/2023 14:59 PA(s): Lakeshia Raymond By this signature, I attest that the above diagnosis is based upon my personal examination of the slides(and/or other material). Addenda/Procedures Addendum Ordered:01/02/2024Status:Signed OutAddendum Complete:01/02/2024y:Jarvis Dias M.D.Addendum Signed Out:01/02/2024 Addendum Comment A digital scan of the original reference lab report will begin on page two of this addendum. ?? By this signature, I attest that the above diagnosis is based upon my personal examination of the slides(and/or other material indicated in the diagnosis). Jarvis Dias M.D.Report Electronically Reviewed and Signed Out By ??Jarvis Dias M.D. ??01/02/2024 13:28:55 ?? The Bacteria broad-range PCR test was performed at [facility]. ??[facility], [address], [address] [place] [address] The performance characteristics of some immunohistochemical stains, fluorescence in-situ hybridization tests and immunophenotyping by flow cytometry cited in this report (if any) were determined by the Surgical Pathology and Flow Cytometry Departments at [facility] as part of an ongoing quality assurance tech program and in compliance with federally mandated regulations drawn from the Clinical Laboratory Improvement Act of 1988 (CLIA '88). ??Some of these tests rely on the use of analyte specific reagents and are subject to specific labeling requirements by the US Food and Drug Administration. ??Such diagnostic tests may only be performed in a facility that is certified by the Department of Health and Human Services as a high complexity laboratory under CLIA '88. ??The FDA has determined that such clearance or approval is not necessary. ??This test is used for clinical purposes. ??It should not be regarded as investigational or for research. ??Nevertheless, federal rules concerning the medical use of analyte specific reagents require that the following disclaimer be attached to the report: This test was developed and its performance characteristics determined by the Surgical Pathology and Flow Cytometry Departments of [facility]. ??It has not been cleared or approved by the U. S. Food and Drug Administration. IMAGES AND SCANNED DOCUMENTS, IF INCLUDED, ONLY VIEWABLE IN PDF VERSION OF REPORT us Suhail Alfredo MD LAB PATHOLOGY ORDERABLES Final R esult PATHOLOGY [facility] 3rd Floor [place], [place] [phone] * Bronchoscopy - (11/28/2023 9:47 AM CDT) Anatomical Region Laterality Modality Other Narrative Procedure Note Ricky Vasquez MD - 11/28/2023 9:47 AM CDT [facility] Respiratory Care Patient Name: Darius Russo Procedure Date: 11/28/2023 9:47 AM Date of : 1960 Admit Type: Inpatient Age: 63 Room: [facility] Gender: Female Note Status: Finalized Procedure: Bronchoscopy Indications: Infiltrate Providers: Ricky Vasquez M.D., Marlene Pierre (Fellow) Referring MD: Medicines: Lidocaine 2% Nebulizer 4 mL, Lidocaine 2% appliedto cords 4 mL, Lidocaine 1% subglottic space 20 mL, Midazolam 4 mg IV, Fentanyl 100 mcg IV Complications: No immediate complications Estimated Blood Loss: Estimated blood loss was minimal. Procedure: Pre-Anesthesia Assessment: - ASA Grade Assessment: III - A patient withsevere systemic disease. - The anesthesia plan was to use moderate sedation/analgesia. Patient identification and proposed procedurewere verified prior to the procedure by the physicianand clinical staff in the exam room. The 6.0 mm bronchoscope (540) was introduced through themouth, via the endotracheal tube (the patient wasintubated for the procedure) and advanced to the tracheobronchial tree. The patient tolerated the procedure fairly well. The procedure was accomplished without difficulty. Findings: The endotracheal tube is in good position. The visualized portion ofthe trachea is of normal caliber. The marisol is sharp. Thetracheobronchial tree was examined to at least the first subsegmental level. Bronchial mucosa and anatomy are normal; there are no endobronchial lesions,and no secretions. The bronchoscope was advanced until wedged at the desired locationfor bronchoalveolar lavage. BAL was performed in the FRANKLIN inferiorlingular segment (B5) of the lung. 100 mL of fluid were instilled. 50 mL were returned. The return was blood-tinged. There were no mucoid plugs inthe return fluid. Transbronchial biopsies of an area of infiltration were performed inthe superior lingula segment of the left upper lobe and in the inferior lingula segment of the left upper lobe using alligator forceps andsent for histopathology examination. The procedure was guided byfluoroscopy. Transbronchial biopsy technique was selected because the samplingsite was not visible endoscopically. Seven biopsy passes were performed.Six biopsy samples were obtained. Moderate Sedation: Conscious sedation note: I personally provided direct [id number] monitoring of conscious sedation administered by an independently trained respiratorytherapist or nurse using fentanyl and versed for 23 minutes. Impression: - Infiltrate - The airway examination was normal. - Bronchoalveolar lavage was performed. - Transbronchial lung biopsies were performed. Recommendation: - Await biopsy, culture and cytology results. Attending Participation: I was present and participated during the entire procedure, including non-brown portions. Electronically Signed by Ricky Vasquez MD Ricky Vasquez M.D. 11/28/2023 10:53:40 AM This report has been signed electronically.Ricky Vasquez M.D. Number of Addenda: 0 Note Initiated On: 11/28/2023 9:47 AM us Suhail Alfredo MD BRONCH ORDERABLES Final Result * POCT glucose (11/28/2023 8:15 AM CDT) Glucose, POC 162 70 - 199 mg/dL Blood 11/28/2023 8:15 AM CDT 11/28/2023 8:15 AM CDT us Suhail Alfredo MD LAB POCT ORDERABLES - DEVICE Fin al Result Performing Organization Address [facility] Co de Phone Number [facility] Department [place] [address] * eGFR (11/28/2023 1:10 AM CDT) eGFR 84 >=60 mL/min/1. 73 m2 Comment: Interpretive Data Reference Interval Normal ?>/= 90 mL/min/1.73m2 Mildly decreased* ? 60 - 89 mL/min/1.73m2 Mildly to moderately decreased ?45 - 59 mL/min/1.73m2 Moderately to severely decreased ??30 - 44 mL/min/1.73m2 Severely decreased ?15 - 29 mL/min/1.73m2 Kidney Failure ?< 15 ??mL/min/1.73m2 *Relative to young adult level Estimated glomerular filtration rate is determined by the 2020 CKD-EPI equation recommended by the National Kidney Foundation (A Unifying Approach to GFR Estimation: Recommendations of the NKF-ASK Task Force on Reassessing the Inclusion of Race in Diagnosing Kidney Disease, JASN 2020). The CKD-EPI equation should not be used for patients with unstable renal function and has not been validated in children and those over 70. Current interpretive data was last reviewed 2020. Blood 11/28/2023 1:10 AM CDT 11/28/2023 1:29 AM CDT us Maxime Lee MD LAB BLOOD ORDERABLES Final R esult Performing Organization Address [facility]/ZIP Co de Phone Number [facility] Department [place] [address] * (ABNORMAL) Differential, auto (11/28/2023 1:10 AM CDT) Pathologist [facility] Neutrophil abs 11.0(H) 1.5 - 6.5 K/cumm Imm gran abs 0.1 0.0 - 0.1 K/cumm [facility] Lymphocyte abs 1.6 0.8 - 3.3 K/cumm [facility] Monocyte abs 1.5(H) 0.2 - 0.8 K/cumm [facility] Eosinophil abs 0.1 0.0 - 0.5 K/cumm [facility] Basophil abs 0.1 0.0 - 0.1 K/cumm [facility] Neutrophil pct 76.5 % [facility] Comment: Interpretive Data Percent cell count reference ranges are not reported, since discordance with absolute values may lead to misinterpretation of CBC data. Current Interpretive Data was last revised on 2017. Imm gran pct 0.8 % [facility] Comment: Interpretive Data Percent cell count reference ranges are not reported, since discordance with absolute values may lead to misinterpretation of CBC data. Current Interpretive Data was last revised on 2017. Lymphocyte pct 11.4 % [facility] Comment: Interpretive Data Percent cell count reference ranges are not reported, since discordance with absolute values may lead to misinterpretation of CBC data. Current Interpretive Data was last revised on 2017. Monocyte pct 10.1 % [facility] Comment: Interpretive Data Percent cell count reference ranges are not reported, since discordance with absolute values may lead to misinterpretation of CBC data. Current Interpretive Data was last revised on 2017. Eosinophil pct 0.8 % [facility] Comment: Interpretive Data Percent cell count reference ranges are not reported, since discordance with absolute values may lead to misinterpretation of CBC data. Current Interpretive Data was last revised on 2017. Basophil pct 0.4 % [facility] Comment: Interpretive Data Percent cell count reference ranges are not reported, since discordance with absolute values may lead to misinterpretation of CBC data. Current Interpretive Data was last revised on 2017. Blood 11/28/2023 1:10 AM CDT 11/28/2023 1:29 AM CDT us Maxime Lee MD LAB BLOOD ORDERABLES Final R esult [facility] [place] [address] * (ABNORMAL) CBC with auto differential (11/28/2023 1:10 AM CDT) WBC 14.4(H) 3.8 - 9.9 K/cumm Hgb 7.8(L) 11.9 - 15.5 g/dL [facility] Hct 25.5(L) 35.6 - 45.5 % [facility] Plt 434(H) 150 - 400 K/cumm [facility] MPV 8.7(L) 9.1 - 12.3 fL [facility] RBC 3.04(L) 3.90 - 5.20 M/cumm [facility] MCV 83.9 81.3 - 96.4 fL [facility] MCH 25.7(L) 27.1 - 33.3 pg [facility] MCHC 30.6(L) 32.3 - 35.7 g/dL [facility] RDW CV 17.9(H) 11.1 - 14.9 % [facility] RDW SD 54.8(H) 35.7 - 48.1 fL [facility] NRBC abs 0.00 0.00 - 0.01 K/cumm [facility] Blood 11/28/2023 1:10 AM CDT 11/28/2023 1:29 AM CDT us Maxime Lee MD LAB BLOOD ORDERABLES Final R esult [facility] [place] [address] * Aspergillus galactomannan antigen Blood (11/28/2023 1:10 AM CDT) Aspergillus galactomannan Ag <0.500 <0.5 [facility] ref Lab Comment: ADDITIONAL INFORMATION This is a qualitative test and the resulted index value is not indicative of disease severity. ??Serial testing is recommended for patients at high risk for invasive aspergillosis. This assay was performed using the FDA-cleared [employer] Aspergillus Galactomannan EIA. Test Performed by: [facility] [address] [place] [address] Office Nurse: Rach Guillermo Ph.D.; CLIA# [id number] Blood 11/28/2023 1:10 AM CDT 11/28/2023 1:51 AM CDT us Suhail Alfredo MD LAB MICROBIOLOGY - GENERAL ORDER INO Final Result Performing Organization Address [facility] de Phone Number [facility] [place] [address] [facility] * aPTT (11/28/2023 1:10 AM CDT) aPTT 30 28 - 38 sec Comment: Interpretive Data Heparin therapeutic range: 66.0 - 100.0 seconds. Range based on correlation with therapeutic heparin activity range of 0.3 - 0.7 Units/mL. Current interpretive data was last revised on 2022. Blood 11/28/2023 1:10 AM CDT 11/28/2023 1:28 AM CDT us Suhail Alfredo MD LAB BLOOD ORDERABLES Final Resul t Performing Organization Address [facility] Co de Phone Number [facility] [place] [address] * (ABNORMAL) Erythrocyte sedimentation rate (11/28/2023 1:10 AM CDT) Erythrocyte sedimentation rate 97(H) 1 - 30 mm/hr Blood 11/28/2023 1:10 AM CDT 11/28/2023 1:30 AM CDT us Suhail Alfredo MD LAB BLOOD ORDERABLES Final Resul t Performing Organization Address [facility] Co de Phone Number [facility] [place] [address] * (ABNORMAL) Protime-INR (11/28/2023 1:10 AM CDT) PT 17.7(H) 9.7 - 13.0 sec INR 1.62(H) 0.90 - 1.20 [facility] Comment: Interpretive data Oral anticoagulant therapeutic ranges: Venous thromboembolism prophylaxis or treatment: 2.0-3.0 CARDIOLOGY Standard range: 2.0-3.0 High-intensity range: 2.5-3.5 Refer to indication-specific guidelines for appropriate target ranges for prosthetic heart valve replacement. Current interpretive data was last revised on 2019. Blood 11/28/2023 1:10 AM CDT 11/28/2023 1:28 AM CDT us Suhail Alfredo MD LAB BLOOD ORDERABLES Final Resul t Performing Organization Address [facility] Co de Phone Number [facility] [place] [employer] [address] * Type and screen (11/28/2023 1:10 AM CDT) ABO Rh O Positive Maira, indirect Negative [facility] Blood 11/28/2023 1:10 AM CDT 11/28/2023 1:49 AM CDT Narrative [facility] - 11/28/2023 2:35 AM CDT Has the patient had Daratumumab or Isatuximab in the past 6 months?->Unknown us Suhail lAfredo MD LAB BLOOD BANK TEST ORDERABLES F inal Result Performing Organization Address City/[facility] Co de Phone Number [facility] [place] [employer] [address] * (ABNORMAL) CRP (acute phase) (11/28/2023 1:10 AM CDT) Pathologist [facility] CRP 173.3(H) <=10.0 mg/L Blood 11/28/2023 1:10 AM CDT 11/28/2023 1:29 AM CDT Suhail Alfredo MD LAB BLOOD ORDERABLES Final Resul t Performing Organization Address City/[facility] [place] [address] * Phosphorus (11/28/2023 1:10 AM CDT) Pathologist [facility] Phosphorus, pl 3.5 2.3 - 4.5 mg/dL Blood 11/28/2023 1:10 AM CDT 11/28/2023 1:29 AM CDT us Maxime Lee MD LAB BLOOD ORDERABLES Final R esult Performing Organization Address [facility] [place] [address] * Osmolality, blood (11/28/2023 1:10 AM CDT) Pathologist [facility] Osmo 281 275 - 300 mOsm/kg Blood 11/28/2023 1:10 AM CDT 11/28/2023 1:29 AM CDT us Suhail Alfredo MD LAB BLOOD ORDERABLES Final Resul t Performing Organization Address [facility] [place] [address] * Magnesium (11/28/2023 1:10 AM CDT) Pathologist [facility] Magnesium 2.0 1.4 - 2.5 mg/dL Blood 11/28/2023 1:10 AM CDT 11/28/2023 1:29 AM CDT Maxime Lee MD LAB BLOOD ORDERABLES Final R esult Performing Organization Address City/[facility]/ZIP Co de Phone Number [facility] [place] [address] * (ABNORMAL) Basic metabolic panel (11/28/2023 1:10 AM CDT) [facility] Sodium 134(L) 135 - 145 mmol/L Potassium, pl 4.1 3.3 - 4.9 mmol/L [facility] Chloride 98 97 - 110 mmol/L [facility] CO2 28 22 - 32 mmol/L [facility] Anion gap 8 2 - 15 mmol/L [facility] BUN 15 6 - 25 mg/dL [facility] Creatinine 0.78 0.60 - 1.10 mg/dL [facility] Glucose 153 70 - 199 mg/dL [facility] Comment: Interpretive Data Fasting glucose >/= 126 mg/dl is diagnostic for diabetes. ?? Fasting is defined as no caloric intake for at least 8 hours. Fasting glucose between 100 mg/dl to 125 mg/dl is diagnostic of prediabetes. In a patient with classic symptoms of hyperglycemia or hyperglycemic crisis, a random glucose >/= 200 mg/dl is diagnostic for diabetes. In the absence of unequivocal hyperglycemia, results should be confirmed by repeat testing. The classification and Diagnosis of Diabetes Diabetes Care 202; 46: S19-S40. Current interpretive data was last revised 2022. Calcium 8.3(L) 8.5 - 10.3 mg/dL [facility] Blood 11/28/2023 1:10 AM CDT 11/28/2023 1:29 AM CDT us Maxime Lee MD LAB BLOOD ORDERABLES Final R esult Performing Organization Address City/[facility]/ZIP Co de Phone Number [facility] [place] [employer] [place] [address] * Sodium, urine, random (11/27/2023 9:00 PM CDT) Sodium, ur 74 mmol/L Comment: Interpretive Data No reference range established. Current interpretive data was last revised 2018. Urine (Urine, Clean Catch) 11/27/2023 9:00 PM CDT 11/28/2023 6:41 PM CDT us Suhail Alfredo MD LAB URINE ORDERABLES Final Resul t Performing Organization Address [facility] de Phone Number [facility] [place] [address] * Potassium, urine, random (11/27/2023 9:00 PM CDT) Potassium conc, ur 85.6 mmol/L Comment: Interpretive Data No reference range established. Current interpretive data was last revised 2018. Urine (Urine, Clean Catch) 11/27/2023 9:00 PM CDT 11/28/2023 6:41 PM CDT us Suhail Alfredo MD LAB URINE ORDERABLES Final Resul t Performing Organization Address [facility] de Phone Number [facility] [place] [employer] [place] [place] [address] * Osmolality, urine (11/27/2023 9:00 PM CDT) Osmo, ur 644 mOsm/kg Urine 11/27/2023 9:00 PM CDT 11/28/2023 6:41 PM CDT us Suhail Alfredo MD LAB URINE ORDERABLES Final Resul t Performing Organization Address [facility] de Phone Number [facility] [place] [address] * Chloride, urine, random (11/27/2023 9:00 PM CDT) Chloride, ur 63 mmol/L Comment: Interpretive Data No reference range established. Current interpretive data was last revised 2018. Urine (Urine, Clean Catch) 11/27/2023 9:00 PM CDT 11/28/2023 6:41 PM CDT us Suhail Alfredo MD LAB URINE ORDERABLES Final Resul t Performing Organization Address [facility] Co de Phone Number [facility] [place] [employer] [place] [address] * POCT glucose (11/27/2023 7:46 PM CDT) Glucose, POC 170 70 - 199 mg/dL Blood 11/27/2023 7:46 PM CDT 11/27/2023 7:46 PM CDT us Suhail Alfredo MD LAB POCT ORDERABLES - DEVICE Fin al Result Performing Organization Address [facility] de Phone Number [facility] [place] [employer] [address] * POCT glucose (11/27/2023 5:35 PM CDT) Glucose, POC 145 70 - 199 mg/dL Blood 11/27/2023 5:35 PM CDT 11/27/2023 5:35 PM CDT us Suhail Alfredo MD LAB POCT ORDERABLES - DEVICE Fin al Result Performing Organization Address [facility] de Phone Number [facility] [place] [employer] [address] * POCT glucose (11/27/2023 11:45 AM CDT) Glucose, POC 179 70 - 199 mg/dL Blood 11/27/2023 11:4 5 AM CDT 11/27/2023 11:45 AM CDT us Suhail Alfredo MD LAB POCT ORDERABLES - DEVICE Fin al Result Performing Organization Address [facility] de Phone Number [facility] [place] [employer] [place] [address] * POCT glucose (11/27/2023 7:54 AM CDT) Pathologist [facility] Glucose, POC 141 70 - 199 mg/dL Blood 11/27/2023 7:54 AM CDT 11/27/2023 7:54 AM CDT Suhail Alfredo MD LAB POCT ORDERABLES - DEVICE Fin al Result Performing Organization Address [facility] [place] [address] * Blastomyces antibody, EIA, serum Blood (11/27/2023 12:54 AM CDT) [facility] Blastomyces Antibody Negative Negative [place] [facility] Comment: A single negative result does not exclude the diagnosis of blastomycosis. ??Repeat testing on a new sample in 7-14 days if clinically indicated. Test Performed by: [place] [address] Office Nurse: Rach Guillermo Ph.D.; CLIA# [id number] Blood 11/27/2023 12:5 4 AM CDT 11/27/2023 1:05 AM CDT us Suhail Alfredo MD LAB MICROBIOLOGY - GENERAL ORDER INO Final Result Performing Organization Address [facility] de Phone Number [facility] [place] [employer] [address] [place] [facility] * Histoplasma Antibody Blood (11/27/2023 12:53 AM CDT) Histoplasma Ab, yeast CF Negative Negative [facility] Lab Histoplasma Ab, Immunodiffusion Negative Negative [facility] Comment: A negative complement fixation and immunodiffusion (CF/ID) result does not exclude the diagnosis of histoplasmosis. ?? Repeat testing by CF/ID in 1-2 weeks if clinically indicated. Test Performed by: [facility] [address] [place] [address] Office Nurse: Rach Guillermo Ph.D.; CLIA# [id number] Blood 11/27/2023 12:5 3 AM CDT 11/27/2023 1:05 AM CDT Suhail Alfredo MD LAB MICROBIOLOGY - GENERAL ORDER INO Final Result Performing Organization Address City/[facility] Co de Phone Number [facility] [place] [employer] [place] [address] [place] [facility] * HIV 1/2 Antibody plus p24 Antigen Blood (11/27/2023 12:53 AM CDT) Pathologist [facility] HIV 1/2 ab + p24 ag Nonreactive Nonreactive Comment:Nonreactive for HIV- 1 antigen and HIV-1/HIV-2 antibodies. No laboratory evidence of HIV infection. If acute HIV infection is suspected, consider testing for HIV-1 RNA. Current interpretive data was last revised on 21. Blood 11/27/2023 12:5 3 AM CDT 11/27/2023 1:18 AM CDT Suhail Alfredo MD LAB MICROBIOLOGY - GENERAL ORDER INO Final Result [facility] [place] [employer] [place] [address] * Cryptococcal Antigen, Serum Blood (11/27/2023 12:53 AM CDT) Pathologist [facility] Cryptococcus ag, Serum Negative Negative Comment: The cryptococcal antigen test was performed using the [employer] CrAg Lateral Flow Assay. This assay is FDA cleared for serum and CSF specimens and for the detection of Cryptococcus neoformans and Cryptococcus gattii. If the result is positive, the specimen will be titered and reported from less than 1:5 to greater than or equal to 1:2560. This assay does not distinguish between C. neoformans and C. gattii. Testing hemolyzed serum samples may lead to false negatives. Current interpretive data last revised 2018. Blood 11/27/2023 12:5 3 AM CDT 11/27/2023 1:25 AM CDT us Suhail Alfredo MD LAB MICROBIOLOGY - GENERAL ORDER INO Final Result [facility] Department [place] [address] * Blood culture Blood (11/27/2023 12:53 AM CDT) Report Final Report: No growth Blood 11/27/2023 12:5 3 AM CDT 11/27/2023 1:38 AM CDT Narrative [facility] - 12/01/2023 7:00 AM CDT From a different site than #1. Collection->Peripheral 1. ?Blood cultures are incubated for 4 days on a continuously monitored blood culture system. The first report of a negative culture is issued within 24 hours of receipt of the specimen in the laboratory. 2. ?Positive culture results are reported as soon as they are detected. 3. ?The most important factor for detection of microbes in the setting of bloodstream infection is the volume of blood submitted for culture. Failure to collect an optimal blood volume can result in false negative blood cultures. For pediatric patients, the recommended blood volume to collect is 1 mL of blood per year of patient age (up to 20 mL) per blood culture set. For adult patients, 20 mL of blood, divided equally between aerobic and anaerobic blood culture bottles, is recommended for each blood culture set. 4. ?For blood cultures with Gram-positive cocci, a rapid molecular test for organism identification may be performed using the [employer] Gram-Positive Blood Culture Assay. This assay detects microbial DNA in positive blood culture broth via hybridization of target DNA to capture oligonucleotides on a microarray. This assay has been cleared by the [place] Food and Drug Administration and its performance characteristics have been verified by the [facility]. 5. ?For questions about this culture, contact the Microbiology Laboratory at [phone]. Interpretive data was last revised on 2019. Suhail Alfredo MD LAB MICROBIOLOGY - GENERAL ORDER INO Final Result [facility] Department [place] [address] * Blood culture Blood (11/27/2023 12:53 AM CDT) Report Final Report: No growth Blood 11/27/2023 12:5 3 AM CDT 11/27/2023 1:38 AM CDT Narrative [facility] - 12/01/2023 7:00 AM CDT Collection->Peripheral 1. ?Blood cultures are incubated for 4 days on a continuously monitored blood culture system. The first report of a negative culture is issued within 24 hours of receipt of the specimen in the laboratory. 2. ?Positive culture results are reported as soon as they are detected. 3. ?The most important factor for detection of microbes in the setting of bloodstream infection is the volume of blood submitted for culture. Failure to collect an optimal blood volume can result in false negative blood cultures. For pediatric patients, the recommended blood volume to collect is 1 mL of blood per year of patient age (up to 20 mL) per blood culture set. For adult patients, 20 mL of blood, divided equally between aerobic and anaerobic blood culture bottles, is recommended for each blood culture set. 4. ?For blood cultures with Gram-positive cocci, a rapid molecular test for organism identification may be performed using the [employer] Gram-Positive Blood Culture Assay. This assay detects microbial DNA in positive blood culture broth via hybridization of target DNA to capture oligonucleotides on a microarray. This assay has been cleared by the [place] Food and Drug Administration and its performance characteristics have been verified by the [facility]. 5. ?For questions about this culture, contact the Microbiology Laboratory at [phone]. Interpretive data was last revised on 2019. 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 The first report of a negative culture is issued within 24 hours of receipt of the specimen in the laboratory. Positive cultures of acid- fast bacilli are sub-cultured for reporting organism identification and antimicrobial susceptibility testing, if appropriate. Correlation of culture results and the clinical situation is required for optimal patient management. Testing performed by [facility] ([phone]). Current interpretive data was last revised on 2023. 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 The first report of a negative culture is issued within 24 hours of receipt of the specimen in the laboratory. Positive cultures of acid- fast bacilli are sub-cultured for reporting organism identification and antimicrobial susceptibility testing, if appropriate. Correlation of culture results and the clinical situation is required for optimal patient management. Testing performed by [facility] ([phone]). Current interpretive data was last revised on 2023. Suhail Alfredo MD LAB MICROBIOLOGY - GENERAL ORDER INO Final Result Performing Organization Address [facility] de Phone Number [facility] [place] [address] * (ABNORMAL) POCT glucose (11/26/2023 10:20 PM CDT) Glucose, POC 223(H) 70 - 199 mg/dL Blood 11/26/2023 10:2 0 PM CDT 11/26/2023 10:20 PM CDT Suhail Alfredo MD LAB POCT ORDERABLES - DEVICE Fin al Result Performing Organization Address [facility] de Phone Number [facility] [place] [employer] [place] [address] * eGFR (11/26/2023 9:58 PM CDT) eGFR 70 >=60 mL/min/1. 73 m2 Comment: Interpretive Data Reference Interval Normal ?>/= 90 mL/min/1.73m2 Mildly decreased* ? 60 - 89 mL/min/1.73m2 Mildly to moderately decreased ?45 - 59 mL/min/1.73m2 Moderately to severely decreased ??30 - 44 mL/min/1.73m2 Severely decreased ?15 - 29 mL/min/1.73m2 Kidney Failure ?< 15 ??mL/min/1.73m2 *Relative to young adult level Estimated glomerular filtration rate is determined by the 2020 CKD-EPI equation recommended by the National Kidney Foundation (A Unifying Approach to GFR Estimation: Recommendations of the NKF-ASK Task Force on Reassessing the Inclusion of Race in Diagnosing Kidney Disease, JASN 2020). The CKD-EPI equation should not be used for patients with unstable renal function and has not been validated in children and those over 70. Current interpretive data was last reviewed 2020. Blood 11/26/2023 9:58 PM CDT 11/26/2023 11:34 PM CDT us Maxime Lee MD LAB BLOOD ORDERABLES Final R esult [facility] [place] [address] * (ABNORMAL) Differential, auto (11/26/2023 9:58 PM CDT) Pathologist [facility] Neutrophil abs 16.6(H) 1.5 - 6.5 K/cumm Imm gran abs 0.2(H) 0.0 - 0.1 K/cumm [facility] Lymphocyte abs 1.7 0.8 - 3.3 K/cumm [facility] Monocyte abs 2.0(H) 0.2 - 0.8 K/cumm [facility] Eosinophil abs 0.0 0.0 - 0.5 K/cumm [facility] Basophil abs 0.1 0.0 - 0.1 K/cumm [facility] Neutrophil pct 80.6 % [facility] Comment: Interpretive Data Percent cell count reference ranges are not reported, since discordance with absolute values may lead to misinterpretation of CBC data. Current Interpretive Data was last revised on 2017. Imm gran pct 0.9 % [facility] Comment: Interpretive Data Percent cell count reference ranges are not reported, since discordance with absolute values may lead to misinterpretation of CBC data. Current Interpretive Data was last revised on 2017. Lymphocyte pct 8.3 % [facility] Comment: Interpretive Data Percent cell count reference ranges are not reported, since discordance with absolute values may lead to misinterpretation of CBC data. Current Interpretive Data was last revised on 2017. Monocyte pct 9.7 % [facility] Comment: Interpretive Data Percent cell count reference ranges are not reported, since discordance with absolute values may lead to misinterpretation of CBC data. Current Interpretive Data was last revised on 2017. Eosinophil pct 0.2 % [facility] Comment: Interpretive Data Percent cell count reference ranges are not reported, since discordance with absolute values may lead to misinterpretation of CBC data. Current Interpretive Data was last revised on 2017. Basophil pct 0.3 % [facility] Comment: Interpretive Data Percent cell count reference ranges are not reported, since discordance with absolute values may lead to misinterpretation of CBC data. Current Interpretive Data was last revised on 2017. Blood 11/26/2023 9:58 PM CDT 11/26/2023 11:34 PM CDT us Maxime Lee MD LAB BLOOD ORDERABLES Final R esult [facility] [place] [address] * (ABNORMAL) CBC with auto differential (11/26/2023 9:58 PM CDT) WBC 20.6(H) 3.8 - 9.9 K/cumm Hgb 8.4(L) 11.9 - 15.5 g/dL [facility] Hct 27.2(L) 35.6 - 45.5 % [facility] Plt 459(H) 150 - 400 K/cumm [facility] MPV 9.2 9.1 - 12.3 fL [facility] RBC 3.31(L) 3.90 - 5.20 M/cumm [facility] MCV 82.2 81.3 - 96.4 fL [facility] MCH 25.4(L) 27.1 - 33.3 pg [facility] MCHC 30.9(L) 32.3 - 35.7 g/dL [facility] RDW CV 17.9(H) 11.1 - 14.9 % [facility] RDW SD 54.5(H) 35.7 - 48.1 fL [facility] NRBC abs 0.00 0.00 - 0.01 K/cumm [facility] Blood 11/26/2023 9:58 PM CDT 11/26/2023 11:34 PM CDT us Maxime Lee MD LAB BLOOD ORDERABLES Final R esult Performing Organization Address City/[facility] Co de Phone Number [facility] [place] [employer] [address] * Phosphorus (11/26/2023 9:58 PM CDT) Phosphorus, pl 3.5 2.3 - 4.5 mg/dL Blood 11/26/2023 9:58 PM CDT 11/26/2023 11:34 PM CDT us Maxime Lee MD LAB BLOOD ORDERABLES Final R esult Performing Organization Address City/[facility] Co de Phone Number [facility] [place] [employer] [place] [address] * Magnesium (11/26/2023 9:58 PM CDT) Magnesium 1.8 1.4 - 2.5 mg/dL Blood 11/26/2023 9:58 PM CDT 11/26/2023 11:34 PM CDT Maxime Lee MD LAB BLOOD ORDERABLES Final R esult Performing Organization Address City/[facility]/ZIP Co de Phone Number [facility] [place] [address] * (ABNORMAL) Basic metabolic panel (11/26/2023 9:58 PM CDT) Sodium 127(L) 135 - 145 mmol/L Potassium, pl 4.3 3.3 - 4.9 mmol/L [facility] Chloride 90(L) 97 - 110 mmol/L [facility] CO2 26 22 - 32 mmol/L [facility] Anion gap 11 2 - 15 mmol/L [facility] BUN 19 6 - 25 mg/dL [facility] Creatinine 0.91 0.60 - 1.10 mg/dL [facility] Glucose 186 70 - 199 mg/dL [facility] Comment: Interpretive Data Fasting glucose >/= 126 mg/dl is diagnostic for diabetes. ?? Fasting is defined as no caloric intake for at least 8 hours. Fasting glucose between 100 mg/dl to 125 mg/dl is diagnostic of prediabetes. In a patient with classic symptoms of hyperglycemia or hyperglycemic crisis, a random glucose >/= 200 mg/dl is diagnostic for diabetes. In the absence of unequivocal hyperglycemia, results should be confirmed by repeat testing. The classification and Diagnosis of Diabetes Diabetes Care 202; 46: S19-S40. Current interpretive data was last revised 2022. Calcium 8.6 8.5 - 10.3 mg/dL [facility] Blood 11/26/2023 9:58 PM CDT 11/26/2023 11:34 PM CDT us Maxime Lee MD LAB BLOOD ORDERABLES Final R esult [facility] [place] [address] * POCT glucose (11/26/2023 5:27 PM CDT) Pathologist [facility] Glucose, POC 141 70 - 199 mg/dL Blood 11/26/2023 5:27 PM CDT 11/26/2023 5:27 PM CDT us Suhail Alfredo MD LAB POCT ORDERABLES - DEVICE Fin al Result [facility] [place] [address] * CT Chest Abdomen Pelvis W Contrast (11/26/2023 2:10 PM CDT) Anatomical Region Laterality Modality Body N/A Computed Tomogra phy 11/26/2023 3:25 PM CDT Impressions 11/27/2023 8:43 AM CDT 1. ??Development of left upper lobe predominant peribronchovascular nodules, some of which are cavitating, and associated smooth interlobular septal line thickening, supraclavicular, mediastinal, and hilar supraclavicular lymphadenopathy, and a small left pleural effusion with pleural thickening. ??Given that these findings are new since 10/02/2023, they are favored to represent an atypical infection such as a fungal infection. ??Vasculitis is an additional differential consideration. ??Metastatic disease could have this appearance, but this is unlikely given that these findings are new since 10/02/2023. Consider tissue sampling of either the left supraclavicular lymph node or with bronchoscopy. 2. ??Continued worsening of contained perforation of the proximal sigmoid colon. ??Given the appearance on 09/05/2023, this is favored to be perforation from an underlying colitis rather than diverticulitis. 3. ??Improving hepatic and splenic abscesses. ?? Dictated by: Jyotsna Reid M.D. The radiology attending physician has personally reviewed this study, and had reviewed and/or edited this written report and agrees with it. Electronically signed by: Vamshi Alarcon M.D. Narrative 11/27/2023 8:43 AM CDT EXAMINATION: ??Computed tomography of the chest, abdomen and pelvis with intravenous contrast HISTORY: 63-year-old female with IBD, adnexal mass, complicated diverticulitis, negative T-spot, presents with unintentional weight loss TECHNIQUE: ??Transaxial computed tomographic images of the chest, abdomen and pelvis were obtained with intravenous contrast according to the standard protocol after the uneventful administration of 70 mL Opti-Ray 350 intravenous contrast. COMPARISON: CT 08/26/2023, 10/02/2023, 11/04/2023 and MR 11/13/2023 FINDINGS: ?? Chest: Right thyroid lobe goiter. New enlarged left supraclavicular, mediastinal, and hilar lymph nodes. ??For reference, a left supraclavicular lymph node measures 1 cm in short axis. Interval development of peribronchovascular nodules in the left lung, worse in the upper lobe, one of which demonstrate central cavitations. ??For reference a peripheral nodule measures 2.4 centimeters, best seen on series 3 image 38. ??Associated septal line thickening. ??New small left pleural effusion with questionable pleural thickening. ??Subsegmental atelectasis in the right lower lobe. ??No pneumothorax. Normal size heart. ??No pericardial effusion. ??Coronary artery calcifications. Atherosclerotic calcifications in the thoracic aorta. Abdomen/Pelvis: Several hepatic abscesses which have decreased in size. ??For example, a lesion in segment 2 that previously measured 2.1 cm on 11/04/2023 now measures 1.2 cm. ??Transient upper perfusion abnormality in segment 2/3. ??Postsurgical changes of cholecystectomy. ??No biliary ductal dilatation. ??Normal pancreas and adrenals. ??Peripheral splenic lesions have also decreased/resolved. ??For example, a residual lesion near the hilum that previously measured 2.3 cm now measures 1.1 cm. ?? The kidneys enhance symmetrically. ??No signs of hydronephrosis. There is excreted contrast in the renal collecting system. ??Contrast opacifies the lumen of the urinary bladder. Large right adnexal mass, unchanged in size, better characterized on MRI. There is thickening of the descending colon and proximal sigmoid colon compatible with colitis. ??There is an enlarging phlegmon with locules of gas representing a contained perforation. ??The small bowel is normal in course and caliber. ??The appendix is normal. Moderate vascular calcifications in the abdominal aorta and its branches without aneurysmal change. Scattered subcentimeter reactive mesenteric and retroperitoneal lymph nodes, unchanged. No suspicious lytic or blastic osseous lesions. Procedure Note Vamshi Alarcon MD - 11/27/2023 EXAMINATION: Computed tomography of the chest, abdomen and pelvis with intravenous contrast HISTORY: 63-year-old female with IBD, adnexal mass, complicated diverticulitis, negative T-spot, presents with unintentional weight loss TECHNIQUE: Transaxial computed tomographic images of the chest, abdomen and pelvis were obtained with intravenous contrast according to the standard protocol after the uneventful administration of 70 mL Opti-Ray 350 intravenous contrast. COMPARISON: CT 08/26/2023, 10/02/2023, 11/04/2023 and MR 11/13/2023 FINDINGS: Chest: Right thyroid lobe goiter. New enlarged left supraclavicular, mediastinal, and hilar lymph nodes. For reference, a left supraclavicular lymph node measures 1 cm in short axis. Interval development of peribronchovascular nodules in the left lung, worse in the upper lobe, one of which demonstrate central cavitations. For reference a peripheral nodule measures 2.4 centimeters, best seen on series 3 image 38. Associated septal line thickening. New small left pleural effusion with questionable pleural thickening. Subsegmental atelectasis in the right lower lobe. No pneumothorax. Normal size heart. No pericardial effusion. Coronary artery calcifications. Atherosclerotic calcifications in the thoracic aorta. Abdomen/Pelvis: Several hepatic abscesses which have decreased in size. For example, a lesion in segment 2 that previously measured 2.1 cm on 11/04/2023 now measures 1.2 cm. Transient upper perfusion abnormality in segment 2/3. Postsurgical changes of cholecystectomy. No biliary ductal dilatation. Normal pancreas and adrenals. Peripheral splenic lesions have also decreased/resolved. For example, a residual lesion near the hilum that previously measured 2.3 cm now measures 1.1 cm. The kidneys enhance symmetrically. No signs of hydronephrosis. There is excreted contrast in the renal collecting system. Contrast opacifies the lumen of the urinary bladder. Large right adnexal mass, unchanged in size, better characterized on MRI. There is thickening of the descending colon and proximal sigmoid colon compatible with colitis. There is an enlarging phlegmon with locules of gas representing a contained perforation. The small bowel is normal in course and caliber. The appendix is normal. Moderate vascular calcifications in the abdominal aorta and its branches without aneurysmal change. Scattered subcentimeter reactive mesenteric and retroperitoneal lymph nodes, unchanged. No suspicious lytic or blastic osseous lesions. IMPRESSION: 1. Development of left upper lobe predominant peribronchovascular nodules, some of which are cavitating, and associated smooth interlobular septal line thickening, supraclavicular, mediastinal, and hilar supraclavicular lymphadenopathy, and a small left pleural effusion with pleural thickening. Given that these findings are new since 10/02/2023, they are favored to represent an atypical infection such as a fungal infection. Vasculitis is an additional differential consideration. Metastatic disease could have this appearance, but this is unlikely given that these findings are new since 10/02/2023. Consider tissue sampling of either the left supraclavicular lymph node or with bronchoscopy. 2. Continued worsening of contained perforation of the proximal sigmoid colon. Given the appearance on 09/05/2023, this is favored to be perforation from an underlying colitis rather than diverticulitis. 3. Improving hepatic and splenic abscesses. Dictated by: Jyotsna Reid M.D. The radiology attending physician has personally reviewed this study, and had reviewed and/or edited this written report and agrees with it. Electronically signed by: Vamshi Alarcon M.D. us Suhail Alfredo MD IMG CT PROCEDURES Final Result * POCT glucose (11/26/2023 11:49 AM CDT) Glucose, POC 198 70 - 199 mg/dL Blood 11/26/2023 11:4 9 AM CDT 11/26/2023 11:49 AM CDT us Suhail Alfredo MD LAB POCT ORDERABLES - DEVICE Fin al Result Performing Organization Address [facility] de Phone Number [facility] Department [place] [address] * POCT glucose (11/26/2023 9:06 AM CDT) Glucose, POC 145 70 - 199 mg/dL Blood 11/26/2023 9:06 AM CDT 11/26/2023 9:06 AM CDT us Suhail Alfredo MD LAB POCT ORDERABLES - DEVICE Fin al Result Performing Organization Address [facility]/ZIP Co de Phone Number [facility] [place] [address] * C. difficile testing Stool (11/26/2023 1:10 AM CDT) Pathologist [facility] Result Negative Negative Toxin Result Negative Negative [facility] C. diff result Negative, free toxin Negative, free toxin [facility] C. diff interp Negative for toxigenic Clostridioides (Clostridium) difficile. Analysis was performed using a glutamate dehydrogenase antigen detection assay combined with a C. difficile toxin detection assay. [facility] Stool 11/26/2023 1:10 AM CDT 11/26/2023 4:04 AM CDT us Maxime Lee MD LAB MICROBIOLOGY - GENERAL O RDERABLES Final Result Performing Organization Address [facility] [place] [address] * Infection Prevention VRE Culture Stool (11/26/2023 1:10 AM CDT) [facility] Report Final Report: Negative Stool 11/26/2023 1:10 AM CDT 11/26/2023 6:20 AM CDT Narrative [facility] - 11/28/2023 7:46 AM CDT Surveillance culture for Infection Prevention purposes only; results indicate colonization, not infection requiring treatment. Testing performed by [facility] ([phone]). us Suhail Alfredo MD LAB MICROBIOLOGY - GENERAL ORDER INO Final Result Performing Organization Address City/[facility] [place] [address] * eGFR (11/25/2023 10:52 PM CDT) Pathologist [facility] eGFR 81 >=60 mL/min/1. 73 m2 Comment: Interpretive Data Reference Interval Normal ?>/= 90 mL/min/1.73m2 Mildly decreased* ? 60 - 89 mL/min/1.73m2 Mildly to moderately decreased ?45 - 59 mL/min/1.73m2 Moderately to severely decreased ??30 - 44 mL/min/1.73m2 Severely decreased ?15 - 29 mL/min/1.73m2 Kidney Failure ?< 15 ??mL/min/1.73m2 *Relative to young adult level Estimated glomerular filtration rate is determined by the 2020 CKD-EPI equation recommended by the National Kidney Foundation (A Unifying Approach to GFR Estimation: Recommendations of the NKF-ASK Task Force on Reassessing the Inclusion of Race in Diagnosing Kidney Disease, JASN 2020). The CKD-EPI equation should not be used for patients with unstable renal function and has not been validated in children and those over 70. Current interpretive data was last reviewed 2020. Blood 11/25/2023 10:5 2 PM CDT 11/25/2023 11:05 PM CDT us Maxime Lee MD LAB BLOOD ORDERABLES Final R esult [facility] Department of Laboratories [place], [place] [id number] * aPTT (11/25/2023 10:52 PM CDT) aPTT 36 28 - 38 sec Comment: Interpretive Data Heparin therapeutic range: 66.0 - 100.0 seconds. Range based on correlation with therapeutic heparin activity range of 0.3 - 0.7 Units/mL. Current interpretive data was last revised on 2022. Blood 11/25/2023 10:5 2 PM CDT 11/25/2023 11:28 PM CDT us Maxime Lee MD LAB BLOOD ORDERABLES Final R esult Performing Organization Address [facility] Co de Phone Number [facility] [place] [address] * (ABNORMAL) Protime-INR (11/25/2023 10:52 PM CDT) Pathologist [facility] PT 18.8(H) 9.7 - 13.0 sec INR 1.72(H) 0.90 - 1.20 [facility] Comment: Interpretive data Oral anticoagulant therapeutic ranges: Venous thromboembolism prophylaxis or treatment: 2.0-3.0 CARDIOLOGY Standard range: 2.0-3.0 High-intensity range: 2.5-3.5 Refer to indication-specific guidelines for appropriate target ranges for prosthetic heart valve replacement. Current interpretive data was last revised on 2019. Blood 11/25/2023 10:5 2 PM CDT 11/25/2023 11:28 PM CDT us Maxime Lee MD LAB BLOOD ORDERABLES Final R esult Performing Organization Address City/[facility] Co de Phone Number [facility] Department [place] [address] * (ABNORMAL) CBC without differential (11/25/2023 10:52 PM CDT) Pathologist [facility] WBC 16.6(H) 3.8 - 9.9 K/cumm Hgb 8.6(L) 11.9 - 15.5 g/dL [facility] Hct 28.1(L) 35.6 - 45.5 % [facility] Plt 430(H) 150 - 400 K/cumm [facility] MPV 9.0(L) 9.1 - 12.3 fL [facility] RBC 3.39(L) 3.90 - 5.20 M/cumm [facility] MCV 82.9 81.3 - 96.4 fL [facility] MCH 25.4(L) 27.1 - 33.3 pg [facility] MCHC 30.6(L) 32.3 - 35.7 g/dL [facility] RDW CV 17.9(H) 11.1 - 14.9 % [facility] RDW SD 54.2(H) 35.7 - 48.1 fL [facility] NRBC abs 0.00 0.00 - 0.01 K/cumm [facility] Blood 11/25/2023 10:5 2 PM CDT 11/25/2023 11:05 PM CDT us Maxime Lee MD LAB BLOOD ORDERABLES Final R esult Performing Organization Address City/[facility]/ZIP Co de Phone Number [facility] Department [place] [address] * Type and screen (11/25/2023 10:52 PM CDT) ABO Rh O Positive Maira, indirect Negative [facility] Blood 11/25/2023 10:5 2 PM CDT 11/25/2023 11:07 PM CDT Narrative [facility] - 11/26/2023 12:00 AM CDT Has the patient had Daratumumab or Isatuximab in the past 6 months?->Unknown Maxime Lee MD LAB BLOOD BANK TEST ORDERABL ES Final Result Performing Organization Address [facility] Co de Phone Number [facility] Department [place] [address] * Phosphorus (11/25/2023 10:52 PM CDT) Phosphorus, pl 3.0 2.3 - 4.5 mg/dL Blood 11/25/2023 10:5 2 PM CDT 11/25/2023 11:05 PM CDT Maxime Lee MD LAB BLOOD ORDERABLES Final R esult [facility] [place] [address] * Magnesium (11/25/2023 10:52 PM CDT) [facility] Magnesium 2.0 1.4 - 2.5 mg/dL Blood 11/25/2023 10:5 2 PM CDT 11/25/2023 11:05 PM CDT us Maxime Lee MD LAB BLOOD ORDERABLES Final R esult [facility] [place] [address] * (ABNORMAL) Basic metabolic panel (11/25/2023 10:52 PM CDT) [facility] Sodium 130(L) 135 - 145 mmol/L Potassium, pl 4.6 3.3 - 4.9 mmol/L [facility] Chloride 95(L) 97 - 110 mmol/L [facility] CO2 26 22 - 32 mmol/L [facility] Anion gap 9 2 - 15 mmol/L [facility] BUN 18 6 - 25 mg/dL [facility] Creatinine 0.81 0.60 - 1.10 mg/dL [facility] Glucose 128 70 - 199 mg/dL [facility] Comment: Interpretive Data Fasting glucose >/= 126 mg/dl is diagnostic for diabetes. ?? Fasting is defined as no caloric intake for at least 8 hours. Fasting glucose between 100 mg/dl to 125 mg/dl is diagnostic of prediabetes. In a patient with classic symptoms of hyperglycemia or hyperglycemic crisis, a random glucose >/= 200 mg/dl is diagnostic for diabetes. In the absence of unequivocal hyperglycemia, results should be confirmed by repeat testing. The classification and Diagnosis of Diabetes Diabetes Care 202; 46: S19-S40. Current interpretive data was last revised 2022. Calcium 8.7 8.5 - 10.3 mg/dL [facility] Blood 11/25/2023 10:5 2 PM CDT 11/25/2023 11:05 PM CDT us Maxime Lee MD LAB BLOOD ORDERABLES Final R esult [facility] Department [place] [address] * POCT glucose (11/25/2023 9:45 PM CDT) [facility] Glucose, POC 147 70 - 199 mg/dL Blood 11/25/2023 9:45 PM CDT 11/25/2023 9:45 PM CDT us Maxime Lee MD LAB POCT ORDERABLES - DEVICE Final Result Performing Organization Address [facility] Co de Phone Number [facility] Department [place] [address] * Respiratory pathogen panel Nasopharyngeal (11/25/2023 9:40 PM CDT) [facility] Influenza A RNA Not Detected Not Detected Influenza B RNA Not Detected Not Detected [facility] RSV RNA Not Detected Not Detected [facility] COVID-19 RNA Not Detected Not Detected [facility] Coronavirus 229E RNA Not Detected Not Detected [facility] Coronavirus HKU1 RNA Not Detected Not Detected [facility] Coronavirus NL63 RNA Not Detected Not Detected [facility] Coronavirus OC43 RNA Not Detected Not Detected [facility] Adenovirus DNA Not Detected Not Detected [facility] Metapneumovirus RNA Not Detected Not Detected [facility] Rhinovirus/Enterov irus RNA Not Detected Not Detected [facility] Parainfluenza 1 RNA Not Detected Not Detected [facility] Parainfluenza 2 RNA Not Detected Not Detected [facility] Parainfluenza 3 RNA Not Detected Not Detected [facility] Parainfluenza 4 RNA Not Detected Not Detected [facility] B. pertussis DNA Not Detected Not Detected [facility] B. parapertussis DNA Not Detected Not Detected [facility] C. pneumoniae DNA Not Detected Not Detected [facility] M. pneumoniae DNA Not Detected Not Detected [facility] Nasopharyngeal 11/25/2023 9: 40 PM CDT 11/25/2023 10:01 PM CDT Dung STILES [facility] - 11/25/2023 10:54 PM CDT Is the Patient experiencing symptoms consistent with COVID?->Unknown Surveillance testing for transplant patient?->No ??Interpretive Data The [employer] FilmArray Respiratory Panel (RP2.1) assay is a multiplexed real-time PCR based nucleic acid test capable of simultaneous qualitative detection and identification of multiple respiratory viral and bacterial nucleic acids, including SARS Coronavirus 2 (the causative agent of COVID-19). The following bacteria, viruses and virus subtypes can be identified using the FilmArray RP2.1 assay: Bordetella pertussis, Bordetella parapertussis, Chlamydia pneumoniae, Mycoplasma pneumoniae, Adenovirus, SARS Coronavirus 2, seasonal coronaviruses (Coronavirus HKU1, Coronavirus NL63, Coronavirus 229E, and Coronavirus OC43), Influenza A, Influenza A subtype H1, Influenza A subtype H3, Influenza A subtype 2009 H1, Influenza B, Metapneumovirus, Parainfluenza 1, Parainfluenza 2, Parainfluenza 3, Parainfluenza 4, RSV, Rhinovirus/Enterovirus. Due to the genetic similarity between human Rhinovirus and Enterovirus, the FilmArray RP2.1 assay cannot reliably differentiate them. Coronavirus OC43 may cross-react with some isolates of Coronavirus HKU1. ??A dual positive result may be due to cross-reactivity or may indicate a co-infection. The detection and identification of specific viral and bacterial nucleic acids from individuals exhibiting signs and symptoms of a respiratory infection aids in the diagnosis of respiratory infection if used in conjunction with other clinical and epidemiological information. ??The results of this test should not be used as the sole basis for diagnosis, treatment, or other management decisions. ??Negative results in the setting of a respiratory illness may be due to infection with pathogens that are not detected by this test. ??Positive results do not rule out infection/co-infection with other organisms. ??The agent(s) detected by the FilmArray RP2.1 may not be the definite cause of disease. ??Additional testing (lab, imaging, etc.) may be necessary when evaluating a patient with possible respiratory tract infection. The FilmArray RP2.1 assay has FDA clearance for testing of ORDERING MACHINE OPERATOR swabs. ??The performance of additional specimen types has been assessed by the performing laboratory. ??The performance characteristics of this assay have been determined by [facility]. Current interpretive data was last revised on 21. us Maxime Lee MD LAB MICROBIOLOGY - GENERAL O RDERABLES Final Result [facility] [place] [address] * SCAN - RADIOLOGY/IMAGING (11/25/2023) Anatomical Region Laterality Modality Other us Provider Scanning Final Result * SCAN - LABS (11/24/2023) us Provider Scanning Final Result * SCAN - LABS (11/14/2023) us Michelle Patel RN Final Re sult * MRI Abdomen Pelvis Enterography W WO Contrast (11/13/2023 6:53 PM CDT) Anatomical Region Laterality Modality Body N/A Magnetic Resonan ce 11/14/2023 10:1 5 AM CDT Impressions 11/14/2023 2:56 PM CDT 1. Evolving changes of sigmoid diverticulitis with contained perforation. Superimposed mild inflammation in the rectum and sigmoid may be related to patient's history of ulcerative colitis. 2. Scattered abscesses throughout the liver and spleen, not significantly changed compared to 11/04/2023. 3. Large multiseptated O RADS 3 lesion, likely arising from the right ovary. Recommend continued gynecologic follow-up. 4. Small left pleural effusion. 5. Iron deposition throughout the liver, spleen, and bone marrow, compatible with secondary hemachromatosis. Dictated by: Carlos Manuel Shaikh M.D. The radiology attending physician has personally reviewed this study, and had reviewed and/or edited this written report and agrees with it. Electronically signed by: Ashley Carrasco M.D. Narrative 11/14/2023 2:56 PM CDT EXAMINATION: 1. MAGNETIC RESONANCE IMAGING OF THE ABDOMEN WITHOUT AND WITH CONTRAST 2. MAGNETIC RESONANCE IMAGING OF THE PELVIS WITHOUT AND WITH CONTRAST HISTORY: Ulcerative colitis, perforated diverticulitis, hepatic abscesses TECHNIQUE: Magnetic resonance imaging of the abdomen and pelvis was performed prior to and following the uneventful administration of intravenous Gadolinium contrast. Oral contrast and 1 mg of intravenous glucagon was administered prior to the examination. Protocol: MR Enterography and Fistula Pelvis Contrast: gadoterate 13 mL COMPARISON: CT 11/04/2023 FINDINGS: Bowel: Evolving findings of sigmoid diverticulitis with significant wall thickening and adjacent stranding. There are small adjacent collections consistent with contained perforations these measure 2.0 and 1.8 cm (series 29, image 7). Small volume free intraperitoneal fluid. There is also diffuse mild thickening and T2 hyperintensity of the more distal sigmoid and rectum. Perianal: No evidence of perianal fistulous disease. Liver: Diffuse iron deposition throughout the liver. No surface nodularity. Bile ducts: No biliary duct dilatation. Focal lesions: There are scattered hepatic cysts. For reference a 2.0 cm cyst in the dome of the liver (series 31, image 15). There are additional T2 hyperintense foci which demonstrate rim enhancement and restricted diffusion, consistent with abscesses which are not significantly changed. For reference a 1.5 cm lesion in hepatic segment 7 (series 28, image 26). Vasculature: Patent portal and hepatic vasculature. Gallbladder: Surgically absent Pancreas: Normal Spleen: Diffuse iron deposition. Scattered abscesses also noted within the spleen, stable from recent prior CT. For reference, 0.7 cm lesion (series 28, image 26) Adrenals: Normal Kidneys: Tiny left renal cyst. No hydronephrosis. Bladder: Normal Reproductive organs: There is a multiseptated cystic lesion which appears to arise from the right ovary. This measures 16.4 x 11.6 x 14.2 cm. No solid nodular/enhancing component is identified. ??There are some nonenhancing filling defects at the left upper aspect (series 32 image 15). Other Findings: Small left pleural effusion with associated atelectasis. No abdominal lymphadenopathy. Diffuse iron deposition throughout the marrow. Procedure Note Ashley Carrasco MD - 11/14/2023 EXAMINATION: 1. MAGNETIC RESONANCE IMAGING OF THE ABDOMEN WITHOUT AND WITH CONTRAST 2. MAGNETIC RESONANCE IMAGING OF THE PELVIS WITHOUT AND WITH CONTRAST HISTORY: Ulcerative colitis, perforated diverticulitis, hepatic abscesses TECHNIQUE: Magnetic resonance imaging of the abdomen and pelvis was performed prior to and following the uneventful administration of intravenous Gadolinium contrast. Oral contrast and 1 mg of intravenous glucagon was administered prior to the examination. Protocol: MR Enterography and Fistula Pelvis Contrast: gadoterate 13 mL COMPARISON: CT 11/04/2023 FINDINGS: Bowel: Evolving findings of sigmoid diverticulitis with significant wall thickening and adjacent stranding. There are small adjacent collections consistent with contained perforations these measure 2.0 and 1.8 cm (series 29, image 7). Small volume free intraperitoneal fluid. There is also diffuse mild thickening and T2 hyperintensity of the more distal sigmoid and rectum. Perianal: No evidence of perianal fistulous disease. Liver: Diffuse iron deposition throughout the liver. No surface nodularity. Bile ducts: No biliary duct dilatation. Focal lesions: There are scattered hepatic cysts. For reference a 2.0 cm cyst in the dome of the liver (series 31, image 15). There are additional T2 hyperintense foci which demonstrate rim enhancement and restricted diffusion, consistent with abscesses which are not significantly changed. For reference a 1.5 cm lesion in hepatic segment 7 (series 28, image 26). Vasculature: Patent portal and hepatic vasculature. Gallbladder: Surgically absent Pancreas: Normal Spleen: Diffuse iron deposition. Scattered abscesses also noted within the spleen, stable from recent prior CT. For reference, 0.7 cm lesion (series 28, image 26) Adrenals: Normal Kidneys: Tiny left renal cyst. No hydronephrosis. Bladder: Normal Reproductive organs: There is a multiseptated cystic lesion which appears to arise from the right ovary. This measures 16.4 x 11.6 x 14.2 cm. No solid nodular/enhancing component is identified. There are some nonenhancing filling defects at the left upper aspect (series 32 image 15). Other Findings: Small left pleural effusion with associated atelectasis. No abdominal lymphadenopathy. Diffuse iron deposition throughout the marrow. IMPRESSION: 1. Evolving changes of sigmoid diverticulitis with contained perforation. Superimposed mild inflammation in the rectum and sigmoid may be related to patient's history of ulcerative colitis. 2. Scattered abscesses throughout the liver and spleen, not significantly changed compared to 11/04/2023. 3. Large multiseptated O RADS 3 lesion, likely arising from the right ovary. Recommend continued gynecologic follow-up. 4. Small left pleural effusion. 5. Iron deposition throughout the liver, spleen, and bone marrow, compatible with secondary hemachromatosis. Dictated by: Carlos Manuel Shaikh M.D. The radiology attending physician has personally reviewed this study, and had reviewed and/or edited this written report and agrees with it. Electronically signed by: Ashley Carrasco M.D. Melissa Rhodes MD IM MRI PROCEDURES Final Result * Surgical pathology (11/13/2023 12:42 PM CDT) Tissue (Colon, Biopsy) 11/13/2023 12:42 PM CDT Tissue (Colon, Biopsy) 11/13/2023 12:50 PM CDT Narrative PATHOLOGY [facility] - 11/14/2023 3:16 PM CDT EPIC results best viewed via link to PDF [facility] [place] [address] Note to Patients: This report may contain a detailed description of human tissue sent by a health care provider to the laboratory for pathologic evaluation. The content of this report is essential for diagnosis and may provide important critical findings. This information may be unfamiliar to patients to review without a medical professional present. It is advised that the patient review this report in the presence of a health care provider who can answer questions and explain the details. SURGICAL PATHOLOGY REPORT FINAL Patient Name: ?? DARIUS RUSSO Gender: ??F : ??1960 (Age: 63) Address: ??[address] [place] [address] ??[id number] Hospital #: ??[id number] Taken:11/13/2023 Received:11/13/2023 Reported: 11/14/2023 Patient Type: [facility] ?? Service: Gastroenterology Location: Physician(s): ??Gildardo Jung M.D. Kaushal Heath M.D. Bethany Arriola M.D. Diagnosis: A. ??Large bowel, descending colon, biopsy ? - Colonic mucosa with mildly active chronic colitis (crypt distortion, cryptitis) ? B. ??Rectum, biopsy ? - Normal colonic mucosa kxb/11/14/2023 15:16 By this signature, I attest that the above diagnosis is based upon my personal examination of the slides(and/or other material indicated in the diagnosis). Barbie Barriga MD Report Electronically Reviewed and Signed Out By ??Barbie Barriga MD 11/14/2023 15:16:04 Microscopic Description and Comment: The history of ulcerative colitis is noted. Negative for dysplasia, granulomata, and viral cytopathic effect. Microscopic examination substantiates the above cited diagnosis. History: The patient is a 63-year-old woman presenting for history of chronic ulcerative colitis. ??Operative procedure: ??Colon biopsy. Specimen(s) Received: A: Descending colon B: Rectum Gross Description: Received in two formalin jars labeled with the patient's identifiers. A. ??Labeled descending colon and consists of multiple dupree-pink fragment(s) of soft tissue with an aggregate measurement of 1.2 x 0.9 x 0.1 cm. ?? Labeled A1. Jar 0. B. ??Labeled rectum and consists of multiple dupree-pink fragment(s) of soft tissue with an aggregate measurement of 1.0 x 0.6 x 0.1 cm. ?? Labeled B1. Jar 0. ?? elsw/11/13/2023 14:41 PA(s): Lakeshia Raymond By this signature, I attest that the above diagnosis is based upon my personal examination of the slides(and/or other material). Addenda/Procedures The performance characteristics of some immunohistochemical stains, fluorescence in-situ hybridization tests and immunophenotyping by flow cytometry cited in this report (if any) were determined by the Surgical Pathology and Flow Cytometry Departments at [facility] as part of an ongoing quality assurance tech program and in compliance with federally mandated regulations drawn from the Clinical Laboratory Improvement Act of 1988 (CLIA '88). ??Some of these tests rely on the use of analyte specific reagents and are subject to specific labeling requirements by the US Food and Drug Administration. ??Such diagnostic tests may only be performed in a facility that is certified by the Department of Health and Human Services as a high complexity laboratory under CLIA '88. ??The FDA has determined that such clearance or approval is not necessary. ??This test is used for clinical purposes. ??It should not be regarded as investigational or for research. ??Nevertheless, federal rules concerning the medical use of analyte specific reagents require that the following disclaimer be attached to the report: This test was developed and its performance characteristics determined by the Surgical Pathology and Flow Cytometry Departments of [facility]. ??It has not been cleared or approved by the U. S. Food and Drug Administration. IMAGES AND SCANNED DOCUMENTS, IF INCLUDED, ONLY VIEWABLE IN PDF VERSION OF REPORT Gildardo Jung MD LAB PATHOLOGY ORDERABLES Samantha l Result PATHOLOGY [facility] 3rd Floor [place], [place] [phone] * Colonoscopy (11/13/2023 12:20 PM CDT) Anatomical Region Laterality Modality Other Narrative Procedure Note Gildardo Jung MD - 11/13/2023 12:20 PM CDT GI ENDOSCOPY [facility] Patient Name: Darius Russo Procedure Date: 11/13/2023 12:20 PM Date of : 1960 Admit Type: Outpatient Age: 63 Gender: Female Attending MD: Gildardo Jung M.D. Room: [facility] END[facility]COPY RO[facility] 3 Note Status: Finalized Procedure: Colonoscopy Indications: Suspected Crohn's disease of the colon Referring MD: Bethany Arriola M.D. Providers: Gildardo Jung M.D., Mimi Oneal M.D. Medicines: Monitored Anesthesia Care Complications: No immediate complications. Estimated blood loss: Minimal. Estimated Blood Loss: Estimated blood loss was minimal. Procedure: Pre-Anesthesia Assessment: - Immediately prior to administration ofmedications, the patient was re-assessed for adequacy to receive sedatives. - The risks and benefits of the procedure and the sedation options and risks were discussed with the patient. All questions were answered and informed consent was obtained. The benefits, risks and alternatives of theprocedure and sedation were discussed and informed consentwas obtained. All questions were answered. Please referto the signed informed consent document in the medical record. The scope was passed under direct vision.The [facility] [id number] endoscope was introducedthrough the anus with the intention of advancing to thececum. The scope was advanced to the splenic flexurebefore the procedure was aborted. Medications were given.The colonoscopy was extremely difficult due to unsatisfactory bowel prep. The bowel preparationused was Miralax via single dose instruction. Thequality of the bowel preparation was poor. Bowel prep was administered using a single dose. Findings: The perianal and digital rectal examinations were normal. Normal mucosa was found in the descending colon. Biopsies were taken with a cold forceps for histology. Diffuse severe inflammation characterized by congestion (edema), granularity, loss of vascularity, pseudopolyps and scarring was foundin the sigmoid colon (starts at 40 cm, worst between 30-20 cm from anal verge). Biopsies were taken with a cold forceps for histology. Diffuse mild inflammation characterized by altered vascularity, congestion (edema), erythema and granularity was found in the rectum. Biopsies were taken with a cold forceps for histology. A large amount of solid stool was found at the splenic flexure, precluding visualization. Impression: - Normal mucosa in the descending colon.Biopsied. - Diffuse severe inflammation was found in thesigmoid colon. Biopsied. - Diffuse mild inflammation was found in therectum. Biopsied. - Stool at the splenic flexure and procedureaborted there at that extent. Recommendation: - Await pathology results. - MR enterography and MRI pelvis today Electronically signed by Gildardo Jung MD Gildardo Jung M.D. 11/13/2023 1:14:00 PM . Number of Addenda: 0 Note Initiated On: 11/13/2023 12:20 PM Gildardo Jung MD ENDOSCOPY PROCEDURES Final Re sult * POCT glucose (11/13/2023 11:59 AM CDT) Glucose, POC 114 70 - 199 mg/dL Blood 11/13/2023 11:5 9 AM CDT 11/13/2023 11:59 AM CDT Gildardo Jung MD LAB POCT ORDERABLES - DEVICE Final Result GO [facility] Department [place] [address] * (ABNORMAL) Hemoglobin A1c (11/04/2023 7:56 AM CDT) Hgb A1C 5.7(H) 4.0 - 5.6 % Estimated Average Glucose 117 mg/dL [facility] Comment: The ADA recommends reporting an estimated Average Glucose (eAG) with all Hemoglobin A1c results using the equation derived from a study of 507 normal and diabetic adults. ??Minority populations were underrepresented and children were not included. ?? (Diabetes Care 2020; 43(S1): S66-S76). ??The eAG is not equivalent to a fasting glucose. Blood 11/04/2023 7:56 AM CDT 11/04/2023 8:37 AM CDT Pilo Davis MD LAB BLOOD ORDERABLES F inal Result Performing Organization Address [facility]/ZIP Co de Phone Number GO [facility] Department [place] [address] * Hepatitis C antibody Blood (10/27/2023 9:30 AM CDT) Hep C Ab Nonreactive Nonreactive Comment: Interpretive Data Nonreactive: Antibodies to HCV not detected. Does NOT exclude the possibility of recent exposure to HCV. Equivocal: Equivocal for HCV antibodies. Supplemental molecular testing will be automatically performed to determine infection status in accordance with current CDC screening recommendations. ?? Reactive: Positive for HCV antibodies. ??This may represent current or past HCV infection. Supplemental molecular testing will be automatically performed to determine ??current infection status in accordance with current CDC screening recommendations. Interpretive data was last revised on 2019. Testing performed by: [facility] [facility], [place]., [address] Blood 10/27/2023 9:30 AM CDT 10/27/2023 12:43 PM CDT Gildardo Jung MD LAB MICROBIOLOGY - GENERAL OR DERABLES Edited Result - Final Performing Organization Address City/[facility]/ZIP Co de Phone Number GO [facility] [address] [facility]. 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 HMO/PPO Address: [place] [phone] [facility] MEDICARE Advance Directives For more information, please contact: [phone] * Full Code (Latest Code Status on File) Date Activated Date Inactivated Comments 11/25/2023 7:02 PM 12/30/2023 10:03 PM * Full Code Date Activated Date Inactivated Comments 11/13/2023 12:01 PM 11/13/2023 6:29 PM * Full Code Date Activated Date Inactivated Comments 11/05/2023 5:00 PM 11/06/2023 7:28 PM * Full Code Date Activated Date Inactivated Comments 10/02/2023 1:03 PM 10/04/2023 6:43 PM Care Teams Armament Aircraft Mechanic Relationship Specialty Start Date End Date Kaushal Heath MD [address] [place] [address] PCP - General Internal Medicine 10/30/23 Bigg Delarosa MD [address] [facility] [address] [facility] [address] [place] [address] Referring Physician Gastroenterology 10/15/23 Jefe Choe MD [address] [facility] [address] [facility] [address] [place] [address] Referring Physician Gastroenterology 10/15/23 Melissa Rhodes MD [address] [facility]YN GYNECOLOGIC ONCOLOGY, [address] [address] Consulting Physician Gynecologic Oncology 10/30/23
--- OUTSIDE RECORDS SUMMARY | 2024-02-08 04:05 | XMS_ITS | Encounter Summary ---
Author Organization [facility] Healthcare Address [address] [place] [address] Care Team Providers Care Dog Control Officer Name Role Phone Bigg Delarosa MD Unavailable [phone] Jefe Choe MD Unavailable + Melissa Rhodes MD Unavailable [phone] Kaushal Heath MD Primary Care Provider + [phone] Encounter Details Date Type Department Care Team (Late st Contact Info) Description 01/23/2024 Telephone [facility] Nutrition Counseling [address] [place] [address] Social History Tobacco Use Types Packs/Day Years Used Date Smoking Tobacco: Never Passive Smoke Exposure: Never Smokeless Tobacco: Never [facility] Utilities Answer Date Recorded In the past 12 months has [employer], gas, oil, or water [employer] threatened to shut off services in your [...] week 11/29/2023 How often do you attend chur or catholic services? 1 to 4 times per year 11/29/2023 Do you belong to any clubs o r organizations such as zoroastrianism groups, unions, fraternal or athletic groups, or [...] any time in the past 12 m [facility], were you homeless or living in a prison (including now)? No 11/29/2023 Personal Safety Answer [...] on file Sexual Orientation Not on file documented as of this encounter Miscellaneous Notes * Telephone Encounter - Jimi Blas, RD - 01/23/2024 12:07 PM CST Oncology Nutrition Follow Up Note 63 y.o. with large complex cystic pelvic mass not on current tx. Weight: Wt Readings from Last 10 Encounters: 01/22/24 53.1 kg (117 lb) 01/12/24 51.8 kg (114 lb 3.2 oz) 12/24/23 55.3 kg (122 lb) 11/25/23 58.2 kg (128 lb 3.2 oz) 11/13/23 63 kg (139 lb) 11/05/23 61.5 kg (135 lb 9.6 oz) 10/27/23 63 kg (139 lb) 10/23/23 63 kg (139 lb) 10/03/23 66.9 kg (147 lb 7.8 oz) 10/02/23 67.4 kg (148 lb 8 oz) Current BMI: Estimated body mass index is 22.12 kg/m?? as calculated from the following: Height as of 01/22/24: 154.9 cm (5' 0.98 ). Weight as of 01/22/24: 53.1 kg (117 lb). Lantry body weight: 47.8 kg (105 lb 4.8 oz) Adjusted ideal body weight: 49.9 kg (109 lb 15.7 oz) Estimated Energy Needs: Based on: 63 kg Calories 4887-4884 kcal/day 25-30 kcal/kg Protein 76-95 g/day 1.2-1.5 g/kg Fluid 9163-9480 ml/day or Per MD 30-35 ml/kg or per MD Impression: spoke with pt over the phone. Pt reports her colostomy is going well. Her output is normal. Pt continues to drink KF BID. Pt reports her appetite is good and has increased. She has been eating 3 meals per day and eating 2 tbsp of peanut butter per day. Pt is on a low residue diet and avoiding salads to avoid clogging colostomy. Pt drinking sufficient fluids. Pt denied n/v. Pt wt is trending back up since she is eating more she reports; she lost some wt around the time she had her colostomy surgery. Diet Recall: cereal 2x, sausage, potatoes, spaghetti Intervention: Patient with increased needs: - Encourage small frequent meals and snacks with calorie dense foods - Suggest eating every 2-3 hours to improve intake - Include protein with each meal; reviewed sources - Discussed ways to add calories to meals without adding volume - Recommend Parsimotion supplement TID for added nutrients and protein - Reviewed need for at least 1.5L caffeine free fluids to prevent dehydration - Continue low reside diet Ways to increase calories/protein: - Add butter/margarine/oils to breads, crackers, pasta, cooked cereal, potatoes, beans, vegetables and soups - Add 2 tbsp heavy whipping cream for an additional 100 calories - Add dry milk powder to cereal, soup, gravy, casseroles, desserts - Replace water in recipes with milk - Add 2 tbsp peanut butter for an additional 200 calories (may substitute with other nut butters) - Add protein powder - Use cream cheese - Add dried fruits, nuts to cooked cereal and desserts - Add sauces/gravies - Add granola, honey, fruit, dry cereal, nuts to yogurt or cottage cheese - Add meat to casseroles, pasta, soups - Add hard-boiled eggs to salads - Add cheese to sandwiches, vegetables, potatoes, salads, soups - Add condiments such as sour cream, mayonnaise - Recommended trying fair life shakes or CIB. She is already eating small, frequent meals every 3 hours. Monitoring: weight, s/s, intake, ONS tolerance Jimi Blas RDN, LD [phone] SKINNER documented in this encounter Plan of Treatment Not on file documented as of this encounter Visit Diagnoses Not on filedocumented in this encounter Additional Health Concerns Infection Onset Date Last Indicated Resolved Time MDR gram neg/ESBL 12/24/2023 12/24/2023 VRE 12/24/2023 12/24/2023 documented as of this encounter Care Teams Dog Control Officer Relationship Specialty Start Date End Date Kaushal Heath MD [address] [place] [address] PCP - General Internal Medicine 10/30/23 Bigg Delarosa MD [address] [facility] [address] [address] Referring Physician Gastroenterology 10/15/23 Jefe Choe MD [address] [place] [address] [place] [address] Referring Physician Gastroenterology 10/15/23 Melissa Rhodes MD [address] [facility] GYNECOLOGIC ONCOLOGY, [address] [address] Consulting Physician Gynecologic Oncology 10/30/23 documented as of this encounter
--- OUTSIDE RECORDS SUMMARY | 2024-02-08 04:05 | XMS_ITS ---
Author Organization [facility] Address [address] [place] [address] Care Team Providers Care Fur Cleaner Name Role Phone Bigg Delarosa MD Unavailable [phone] Jefe Choe MD Unavailable + Melissa Rhodes MD Unavailable [phone] Kaushal Heath MD Primary Care Provider [phone] Active Problems Problem Noted Date Diagnosed Date Colostomy in place ([facility]) 01/13/2024 Fever 12/09/2023 Ulcerative pancolitis with complication ([facility] ) 12/05/2023 Assessment & Plan (12/26/2023 11:47 AM SCOOP DRIVER): Patient is a 63 y.o. female with a history of hypertension, type 2 diabetes, and inflammatory bowel disease who is admitted from Gastroenterology Clinic for progressive weight loss and nausea in the setting of multiple admissions for diverticulitis complicated by contained sigmoid perforation, scattered liver and spleen abscesses and adnexal mass. She was admitted to [facility] on 11/24 for further workup and [...] Patient went to the OR 12/23 with INDUSTRIAL HYGENIST, CRS and urology for ex lap, left colectomy with end colostomy, LIBRA, BSO and ureteral stent placement. Surgery reporting source control archived. Given source control has been achieved, we are planning on 5 days of antibiotics from surgery. On assessment today, patient reports minimal use of her DIRECTOR PUBLIC SERVICE and that she typically has abdominal discomfort [...] Assessment & Plan (12/03/2023 3:35 PM CDT): Farhana Russo is a 63 yo female with [...] 11/26/2023 Assessment & Plan (12/25/2023 12:55 PM SCOOP DRIVER): Near resolution of hepatic and splenic abscesses. No plans for repeat imaging given improvement. Continue antibiotics as described elsewhere. Pulmonary nodule 11/26/2023 Assessment & Plan (12/26/2023 11:38 AM SCOOP DRIVER): Patient is a 63 y.o. female with a history of hypertension, type 2 diabetes, and inflammatory bowel disease who is admitted from Gastroenterology Clinic for progressive weight loss and nausea in the setting of multiple admissions for diverticulitis complicated by contained sigmoid perforation, scattered liver and spleen abscesses and adnexal mass. She was admitted to [facility] on 11/24 for further workup and [...] 11/27: Negative BAL bacterial 11/27: upper respiratory horaico BAL CMV 11/27: Not detected Mold blood [...] 11/26/2023 Assessment & Plan (12/25/2023 12:55 PM SCOOP DRIVER): Near resolution of hepatic and splenic abscesses. No plans for repeat imaging given improvement. Continue antibiotics as described elsewhere. 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 Hypertension 10/20/2023 Type II diabetes mellitus 10/20/2023 Diverticulitis of intestine 10/20/2023 Current Oncology Plans No current plan information found. Past Plans No past plan information found. Radiation Treatments * No radiation treatments are documented for this patient in [facility]. Treatments may have been administered in another system. Lifetime Dose Tracking * Chemical Lifetime Dose Automatic Entry Manual Entr y DLP 5,342 mGycm 5,342 mGycm 0 mGycm Resolved Problems Problem Noted Date Diagnosed Date Resolved Date Moderate protein-calorie mal nutrition (CMS/HCC) 10/03/2023 11/25/2023 Abdominal pain 10/02/2023 10/20/2023
--- OUTSIDE RECORDS SUMMARY | 2024-02-08 04:05 | XMS_ITS | Encounter Summary ---
Author Organization [facility] Address [address] [place] [address] Phone Care Team Providers Care Playground Worker Name Role Phone Bigg Delarosa MD Unavailable [phone] Jefe Choe MD Unavailable + Melissa Rhodes MD Unavailable [phone] Kaushal Heath MD Primary Care Provider [phone] Encounter Details Date Type Department Care Team (Latest Contact Info) Description 01/12/2024 11:00 AM TRUCK GREASER Office Visit [facility] Gastroenterology [address] [facility] 2nd Floor [address] [place] [address] Katherine Stephenson NP [address] [place] [address] Diverticulitis of large intestine with perforation and abscess, unspecified bleeding status (Primary Dx); Colostomy in place (CMS/HCC) (HCC) Social History Tobacco Use Types Packs/Day Years Used Date Smoking Tobacco: Never Passive Smoke Exposure: Never Smokeless Tobacco: Never Tobacco Cessation:Counseling Given: Not Answered [facility] Utilities Answer Date Recorded In the past 12 months has [employer] electric, gas, oil, or water company threatened [...] 11/29/2023 How often do you attend chur ch or yazidism services? 1 to 4 times per year 11/29/2023 Do you belong to any clubs o r organizations such as sabianist groups, unions, fraternal or athletic groups, or [...] any time in the past 12 m [facility], were you homeless or living in a assisted (including now)? No 11/29/2023 Personal Safety Answer [...] on file documented as of this encounter Last Filed Vital Signs Vital Sign Reading Time Taken Comments Blood Pressure 126/72 01/12/2024 10:34 AM TRUCK GREASER Pulse 100 01/12/2024 10:34 AM TRUCK GREASER Temperature 36.6 ??C (97.8 ??F) 01/12/2024 10:[address] Respiratory Rate - - Oxygen Saturation 98% 01/12/2024 10:34 AM TRUCK GREASER Inhaled Oxygen Concentration - - Weight 51.8 kg (114 lb 3.2 oz) 01/12/2024 10:34 AM TRUCK GREASER Height 154.9 cm (5' 1 ) 01/12/2024 10:34 AM TRUCK GREASER Body Mass Index 21.58 01/12/2024 10:34 AM TRUCK GREASER documented in this encounter Progress Notes * Katherine Stephenson NP - 01/12/2024 11:00 AM CST NAME: Farhana Russo : 1960 DATE: 01/12/2024 Reason for visit: SCAD HPI: Farhana Russo is a 63 y.o. female with a history of UC ( diagnosed 2022), adnexal mass and episode of diverticulitis c/b colonic microperforation. Last seen in November and thought to have IBD likely CD. Following up after extended hospital admission 11/24-12/30/23. Had left colectomy and end colostomy 12/24/23. Surgical path more consistent with SCAD as opposed to IBD Patient first encountered our GI service when she was admitted between 10/01-10/03 for expedited workup of a recently found adnexal mass. At the same time, a rectal exam performed at her gynecologicaloncologist's office, as part of the evaluation had been concerning for mucus on the examining finger. She had a CTCAP done that had re-demonstrated the known adnexal mass as well as sigmoid diverticulitis that appeared to have improved from OSH imaging but was complicated by a microperforation . She was started on IV antibiotics and colorectal surgery was consulted who recommended conservative management but also recommended GI engagement given concern that her IBD could actually be Crohn's as opposed to her previously diagnosed UC. Regarding her IBD history, patient notes that she was diagnosed with UC in 2022. At the time, she had been sent to GI for a routine colonoscopy and had been found on the scope to have (rectal and sigmoid inflammation, biopsied had revealed colitis and granulomas. Prior to receiving the diagnosis of IBD, she had developed a swelling in her right groin which had initially been felt to be a hernia but was subsequently determined to be an abscess. This was drained by her PCP. The patient states that at the time, there was no mention of any concern for IBD. Her bowel habits had been regular and she did not have any EIM that would suggest Crohn's. At the time of diagnosis, she had been placed on Mesalamine suppositories 1000 mg. She however states that she stopped taking it when her symptoms improved. They however recurred around August of this year and she had to go back on Mesalamine at that point. Since then, she has continued to have tenesmus with passage of mucus per rectum requiring multiple trips to the bathroom, including at night time. She also has developed multiple aphthous ulcers but otherwise has been without other EIMs ( including joint pains, rash, episcleritis etc). At the time that she was seen by our service (during her admission), we had recommended an MRE but this wasn't done prior to discharge. She has been on antibiotics since discharge with CTAP 10/23/23 revealing persistent findings of diverticulitis complicated by contained colonic microperforation with slightly increased wall thickening and adjacent stranding of the sigmoid and descending colon in the region of microperforation. We performed colonoscopy 11/12 which showed left sided inflammation with evidence of chronicity on biopsy. On endoscopy was more Crohn's disease in appearance. Prior to colonoscopy had MRE done 11/10 showing evolving changes of sigmoid diverticulitis with contained perforation with superimposed mild inflammation in the rectum and sigmoid. Also noted, scattered abscesses throughout the liver and spleen, not significantly changed compared to 11/04/2023. Also seen was a large multiseptated O RADS 3 lesion, likely arising from the right ovary. She was seen in clinic for follow in [facility] due to continued symptoms and failure to thrive. She had extreme weight loss. Unable to eat and loss of appetite. She was admitted at that time. Found to have multiple abscesses of the liver and spleen, and new left upper lobe lung lesions, some of whichwere cavitary. Had bronchoscopy with no malignancy or fungal elements found. As above underwent Left colectomy and end colostomy 12/23. Path showed transmural defect with associated acute and chronic inflammation, granulation tissue, and pericolonic abscess in the background of colonic diverticulosis, consistent with perforated diverticulitis and colonic mucosa with featuresof mild chronic active colitis, consistent with segmental colitis associated with diverticulosis (SCAD). Question as to whether this was IBD vs SCAD. She is doing better after surgery. Eating well. Surgical incision healing well. Ostomy output ranges from mushy to oatmeal. No hematochezia. Empties 2-3 times daily. Wear time of 5 days. Patient Active Problem List Diagnosis Date Noted Fever 12/09/2023 Ulcerative pancolitis with complication (CMS/HCC) (HCC) 12/05/2023 Severe malnutrition (CMS/HCC) 11/27/2023 Consolidation of left upper lobe of lung (CMS/HCC) (HCC) 11/27/2023 Splenic abscess 11/26/2023 Pulmonary nodule 11/26/2023 Hepatic abscess 11/26/2023 Physical deconditioning 11/25/2023 Expressive aphasia 11/04/2023 History of chronic ulcerative colitis 10/27/2023 Mucinous cystadenoma, borderline malignancy (HCC) 10/23/2023 Hypertension 10/20/2023 Type II diabetes mellitus (HCC) 10/20/2023 Diverticulitis of intestine 10/20/2023 Past Medical History: Diagnosis Date Adrenal mass (HCC) Diabetes mellitus (HCC) Diverticulitis Hypertension Current Outpatient Medications Medication Sig Dispense Refill acetaminophen (TYLENOL) 500 mg tablet Take 2 tablets (1,000 mg total) by mouth every 6 (six) hours as needed (pain) cyanocobalamin (Vitamin B-12) 2,500 mcg tablet, sublingual Take 1 tablet (2,500 mcg total) by mouthdaily enoxaparin (LOVENOX) 40 mg/0.4 mL syringe Inject 0.4 mL (40 mg total) under the skin daily for 21 days 8.4 mL 0 loperamide (IMODIUM) 2 mg capsule Take 1 capsule (2 mg total) by mouth 4 (four) times a day as needed for diarrhea losartan (COZAAR) 25 mg tablet Take 1 tablet (25 mg total) by mouth daily magnesium oxide 500 mg capsule Take by mouth daily oxyCODONE (ROXICODONE) 5 mg immediate release tablet Take 1 tablet (5 mg total) by mouth every 4 (four) hours as needed for pain [address] (PROTONIX) 40 mg EC tablet Take 1 tablet (40 mg total) by mouth daily polyethylene glycol (MIRALAX) 17 gram/dose bulk powder Take 17 g by mouth daily 116 g 2 potassium chloride ER 10 mEq CR tablet Take 1 tablet/capsule (10 mEq total) by mouth daily prenat.vits,erica,gye-ibei-oodwc tablet Take by mouth No current facility-administered medications for this visit. Review of Systems: Constitutional: Negative. HENT: Negative for sore throat and trouble swallowing. Eyes: Negative. Respiratory: Negative. Cardiovascular: Negative. Gastrointestinal: See HPI Endocrine: Negative. Genitourinary: Negative. Musculoskeletal: Negative. Skin: Negative. Allergic/Immunologic: Negative. Neurological: Negative. Hematological: Negative. Psychiatric/Behavioral: Negative. Breast: Negative. Physical Exam: BP 126/72 Pulse 100 Temp 36.6 ??C (97.8 ??F) Ht 154.9 cm (5' 1 ) Wt 51.8 kg (114 lb 3.2 oz) SpO2 98% BMI 21.58 kg/m?? GENERAL: Well-appearing, in no acute distress. HEENT: Sclerae anicteric. Oropharynx without lesion. NECK: Supple without lymphadenopathy or thyromegaly. LUNGS: Clear to auscultation bilaterally, breath sounds symmetrical bilaterally CARDIOVASCULAR: Regular rate and rhythm with no murmur, rub or gallop ABDOMEN: Flat, soft, non-tender; bowel sounds normal active in all four quadrants, no hepatosplenomegaly, or palpable masses RECTAL: deferred EXTREMITIES: No clubbing, cyanosis or edema. SKIN: No rash or jaundice. NEUROLOGIC: Grossly nonfocal on simple observation with normal insight, memory, affect, and orientation Imaging Review CT 12/27/23 Status post left colectomy and hysterectomy and salpingo-oophorectomy and resection of large right ovarian mucinous cystadenoma. 2. Small ascites, mesenteric edema and hyperenhancement and thickening of the peritoneal lining on the left which could represent peritonitis which could be infectious or postoperative changes. 3. Improving multiple hepatic and splenic abscesses. 4. Moderate left and small right pleural effusion. 5. Diffuse body wall edema. Assessment/Plan: Colitis likely SCAD Some concern for IBD. Admitted 11/24-12/29. Had left colectomy with end colostomy 12/23. Doing better. Reviewing surgical path is more consistent with SCAD -monitor for now -will hold on doing IBD therapy as may not be needed -continue to follow with CRS -will do completion colonoscopy in the near future No problem-specific Assessment & Plan notes found for this encounter. Follow up: Return in about 3 months (around 04/13/2024). K GREASER documented in this encounter Plan of Treatment Not on file documented as of this encounter Visit Diagnoses Diagnosis Diverticulitis of large intestine with perforation and abscess, unspecified bleeding status- Primary Colostomy in place ([facility]/HCC) ([facility]) Colostomy status documented in this encounter Historical Medications * This list may reflect changes made after this encounter. prenat.vits,erica,mi p-ditc-dkudj tablet Take by mouth added in this encounter Additional Health Concerns Infection Onset Date Last Indicated Resolved Time MDR gram neg/ESBL 12/24/2023 12/24/2023 VRE 12/24/2023 12/24/2023 documented as of this encounter Care Teams Playground Worker Relationship Specialty Start Date End Date Kaushal Heath MD [address] [place] [address] PCP - General Internal Medicine 10/30/23 Bigg Delarosa MD [address] [place] [address] Referring Physician Gastroenterology 10/15/23 Jefe Choe MD [address] [place] [address] Referring Physician Gastroenterology 10/15/23 Melissa Rhodes MD [address] [facility] GYNECOLOGIC ONCOLOGY, [address] [address] Consulting Physician Gynecologic Oncology 10/30/23 documented as of this encounter
--- OUTSIDE RECORDS SUMMARY | 2024-02-08 04:05 | XMS_ITS | Encounter Summary ---
Author Organization [facility] Address [address] [place] [address] Phone Care Team Providers Care Coater Carbon Paper Name Role Phone Bigg Delarosa MD Unavailable [phone] Jefe Choe MD Unavailable + Melissa Rhodes MD Unavailable [phone] Kaushal Heath MD Primary Care Provider + [phone] Encounter Details Date Type Department Care Team (Late st Contact Info) Description 01/05/2024 Telephone [facility] Surgery [address] [place] [address] Medical Office Building [address] [place] [address] Eugenie Marie, ABHAY Social History Tobacco Use Types Packs/Day Years Used Date Smoking Tobacco: Never Smokeless Tobacco: Never [facility] Utilities Answer Date Recorded In the past 12 months has [employer], gas, oil, or water [employer] threatened to shut off services in your [...] week 11/29/2023 How often do you attend [facility] or confucianism services? 1 to 4 times per year 11/29/2023 Do you belong to any clubs o r organizations such as jehovah's witness groups, unions, fraternal or athletic groups, or [...] any time in the past 12 m [facility], were you homeless or living in a jail (including now)? No 11/29/2023 Personal Safety Answer [...] encounter Miscellaneous Notes * Telephone Encounter - Eugenie Marie RN - 01/05/2024 9:13 AM LIVESTOCK TRUCKER Patient called. Pt doing x2 protein shakes daily, pt to increase to x3 daily. Patient walking around the house without difficulties. Pt having adequate output from colostomy. Encouraged pt to call back with any additional questions or concerns. STOCK TRUCKER * Telephone Encounter - Eugenie Marie RN - 01/05/2024 9:06 AM LIVESTOCK TRUCKER Called Farhana to assess how she was doing after surgery, pt did not answer. Left voicemail requestingcall back. STOCK TRUCKER documented in this encounter Plan of Treatment Not on file documented as of this encounter Visit Diagnoses Not on filedocumented in this encounter Additional Health Concerns Infection Onset Date Last Indicated Resolved Time MDR gram neg/ESBL 12/24/2023 12/24/2023 VRE 12/24/2023 12/24/2023 documented as of this encounter Care Teams Coater Carbon Paper Relationship Specialty Start Date End Date Kaushal Heath MD [address] [place] [address] PCP - General Internal Medicine 10/30/23 Bigg Delarosa MD [address] [place] [address] Referring Physician Gastroenterology 10/15/23 Jefe Choe MD [address] [place] [address] Referring Physician Gastroenterology 10/15/23 Melissa Rhodes MD [address] [facility] GYNECOLOGIC ONCOLOGY, [address] [address] Consulting Physician Gynecologic Oncology 10/30/23 documented as of this encounter
--- OUTSIDE RECORDS SUMMARY | 2024-02-08 04:05 | XMS_ITS | Encounter Summary ---
Author Organization [facility] Address [address] [place] [address] Care Team Providers Care Shore Hand Dredge Or Barge Name Role Phone Bigg Delarosa MD Unavailable [phone] Jefe Choe MD Unavailable + Melissa Rhodes MD Unavailable [phone] Kaushal Heath MD Primary Care Provider + [phone] Encounter Details Date Type Department Care Team (Late st Contact Info) Description 01/08/2024 Telephone [facility] Nutrition Counseling [address] [place] [address] Social History Tobacco Use Types Packs/Day Years Used Date Smoking Tobacco: Never Smokeless Tobacco: Never [facility] Utilities Answer Date Recorded In the past 12 months has [employer], gas, oil, or water [employer] threatened to shut off services in your [...] How often do you attend chur or worship services? 1 to 4 times per year 11/29/2023 Do you belong to any clubs o r organizations such as jain groups, unions, fraternal or athletic groups, or [...] any time in the past 12 m [facility], were you homeless or living in a snf (including now)? No 11/29/2023 Personal Safety Answer [...] encounter Miscellaneous Notes * Telephone Encounter - MarykalieCarmen, RD - 01/08/2024 1:13 PM CST Oncology Nutrition Follow Up Note 63 y.o. with large complex cystic pelvic mass not on current tx. Weight: Wt Readings from Last 10 Encounters: 12/24/23 55.3 kg (122 lb) 11/25/23 58.2 kg (128 lb 3.2 oz) 11/13/23 63 kg (139 lb) 11/05/23 61.5 kg (135 lb 9.6 oz) 10/27/23 63 kg (139 lb) 10/23/23 63 kg (139 lb) 10/03/23 66.9 kg (147 lb 7.8 oz) 10/02/23 67.4 kg (148 lb 8 oz) Current BMI: Estimated body mass index is 23.06 kg/m?? as calculated from the following: Height as of 12/23/23: 154.9 cm (5' 0.98 ). Weight as of 12/24/23: 55.3 kg (122 lb). [place] body weight: 47.8 kg (105 lb 4.8 oz) Adjusted ideal body weight: 50.8 kg (111 lb 15.7 oz) Estimated Energy Needs: Based on: 63 kg Calories 9156-1771 kcal/day 25-30 kcal/kg Protein 76-95 g/day 1.2-1.5 g/kg Fluid 7755-3700 ml/day or Per MD 30-35 ml/kg or per MD Impression: spoke with pt over the phone. She is s/p colostomy surgery. Has been home for about a week. Moving around better and feeling a little stronger. Drinking KF BID and hopes to increase to TID. Will have home health support and in home exercises to do. Eating the meat and cheese in a POTATOSOFTeak sandwich. Eating sweet potatoes and baked potatoes. Trying to snack more and incorporate small volume meals several times a day. Saw family physician who is happy with how she is looking.Denies n/v/c/d. Says blood sugars have been looking really good. She is going to eat pumpkin pie for Thanksgiving. Is not cooking much of it this year. Her daughter is doing it and looks forward to do ing more of it together. Intervention: Patient with increased needs: - Encourage small frequent meals and snacks with calorie dense foods - Suggest eating every 2-3 hours to improve intake - Include protein with each meal; reviewed sources - Discussed ways to add calories to meals without adding volume - Recommend [employer] supplement TID for added nutrients and protein - Reviewed need for at least 1.5L caffeine free fluids to prevent dehydration Ways to increase calories/protein: - Add butter/margarine/oils [...] hours. Monitoring: weight, s/s, intake, ONS tolerance Carmen Johnson, MS, RD, LD Clinical Dietitian, [facility] [phone] GRAPHER documented in this encounter Plan of Treatment Not on file documented as of this encounter Visit Diagnoses Not on filedocumented in this encounter Additional Health Concerns Infection Onset Date Last Indicated Resolved Time MDR gram neg/ESBL 12/24/2023 12/24/2023 VRE 12/24/2023 12/24/2023 documented as of this encounter Care Teams Shore Hand Dredge Or Barge Relationship Specialty Start Date End Date Kaushal Heath MD [address] [place] [address] PCP - General Internal Medicine 10/30/23 Bigg Delarosa MD [address] [address] Referring Physician Gastroenterology 10/15/23 Jefe Choe MD [address] [facility] [address] [place] [address] [place] [address] Referring Physician Gastroenterology 10/15/23 Melissa Rhodes MD [address] [facility] GYNECOLOGIC ONCOLOGY, [address] [address] Consulting Physician Gynecologic Oncology 10/30/23 documented as of this encounter
--- OUTSIDE RECORDS SUMMARY | 2024-02-08 04:05 | XMS_ITS | Encounter Summary ---
Author Organization [facility] Address [address] [place] [address] Phone Care Team Providers Care Air Conditioning Engineer Name Role Phone Bigg Delarosa MD Unavailable [phone] Jefe Choe MD Unavailable + Melissa Rhodes MD Unavailable [phone] Kaushal Heath MD Primary Care Provider + [phone] Reason for Visit * Reason Onset Date Comments Treatment Plan Update 01/14/2024 01/12/2024 rov Encounter Details Date Type Department Care Team (Late st Contact Info) Description 01/14/2024 Documentation [facility] Gastroenterology [address] [facility] Medicine 12th [place] [address] [place] [address] Che Gamble RN Treatment Plan Update (01/12/2024 rov) Social History Tobacco Use Types Packs/Day Years Used Date Smoking Tobacco: Never Passive Smoke Exposure: Never Smokeless Tobacco: Never [facility] Utilities Answer Date Recorded In the past 12 months has [employer], gas, oil, or water company threatened [...] often do you attend chur ch or samaritan services? 1 to 4 times per year 11/29/2023 Do you belong to any clubs o r organizations such as catholic groups, unions, fraternal or athletic groups, or [...] any time in the past 12 m [facility], were you homeless or living in a nursing home (including now)? No 11/29/2023 Personal Safety Answer [...] on file documented as of this encounter Progress Notes * Che Gamble RN - 01/14/2024 2:25 PM CST 01/13/2024 Plan per Katherine: - pt doing okay after surgery - waiting for colonoscopy from colorectal Per Erich: - agree w/ plan SERVICES INTERN documented in this encounter Plan of Treatment Not on file documented as of this encounter Visit Diagnoses Not on filedocumented in this encounter Additional Health Concerns Infection Onset Date Last Indicated Resolved Time MDR gram neg/ESBL 12/24/2023 12/24/2023 VRE 12/24/2023 12/24/2023 documented as of this encounter Care Teams Air Conditioning Engineer Relationship Specialty Start Date End Date Kaushal Heath MD [address] [place] [address] PCP - General Internal Medicine 10/30/23 Bigg Delarosa MD [address] [facility] [address] [address] Referring Physician Gastroenterology 10/15/23 Jefe Choe MD [address] [facility] [address] [place] [address] [place] [address] Referring Physician Gastroenterology 10/15/23 Melissa Rhodes MD [address] [facility] GYNECOLOGIC ONCOLOGY, [address] [address] Consulting Physician Gynecologic Oncology 10/30/23 documented as of this encounter
--- OUTSIDE RECORDS SUMMARY | 2024-02-08 04:05 | XMS_ITS | Encounter Summary ---
Author Organization [facility] Address [address] [place] [address] Phone Care Team Providers Care Still Worker Helper Name Role Phone Bigg Delarosa MD Unavailable [phone] Jefe Choe MD Unavailable + Melissa Rhodes MD Unavailable [phone] Kaushal Heath MD Primary Care Provider + [phone] Reason for Visit * Reason Onset Date Comments Hospital Follow Up 01/02/2024 Encounter Details Date Type Department Care Team (Late st Contact Info) Description 01/02/2024 Telephone [facility] Gastroenterology [address] [place] [address] [place] [id number] Hilaria Pratt [facility] Follow Up Social History Tobacco Use Types Packs/Day Years Used Date Smoking Tobacco: Never Smokeless Tobacco: Never [facility] Utilities Answer Date Recorded In the past 12 months has [place] electric, gas, oil, or water company threatened [...] week 11/29/2023 How often do you attend [facility] or confucianist services? 1 to 4 times per year 11/29/2023 Do you belong to any clubs o r organizations such as episcopal groups, unions, fraternal or athletic groups, or [...] any time in the past 12 m [facility], were you homeless or living in a custodial (including now)? No 11/29/2023 Personal Safety Answer [...] encounter Miscellaneous Notes * Telephone Encounter - Hilaria Pratt - 01/02/2024 4:21 PM BANANA LOADER IBD list 12/31 - Plan: Partial colectomy + adnexal cyst resection on 12/23, abx. Remicade not viableiso worsening sigmoid perf + possible disseminated fungal/mycobacterial ifx (although, less likely at this point). F/u Erich I called/spoke to pt; offered Jan [address] Jung at [facility], pt declined with schedule conflict. Pt scheduled ROV with DIANA Stephenson FridayJan 11 at 11:00a in [facility]. NA LOADER documented in this encounter Plan of Treatment Not on file documented as of this encounter Visit Diagnoses Not on filedocumented in this encounter Additional Health Concerns Infection Onset Date Last Indicated Resolved Time MDR gram neg/ESBL 12/24/2023 12/24/2023 VRE 12/24/2023 12/24/2023 documented as of this encounter Care Teams Still Worker Helper Relationship Specialty Start Date End Date Kaushal Heath MD [address] [place] [address] PCP - General Internal Medicine 10/30/23 Bigg Delarosa MD [address] [facility] [address] [place] [address] Referring Physician Gastroenterology 10/15/23 Jefe Choe MD [address] [place] [address] Referring Physician Gastroenterology 10/15/23 Melissa Rhodes MD [address] [facility] GYNECOLOGIC ONCOLOGY, [address] [address] Consulting Physician Gynecologic Oncology 10/30/23 documented as of this encounter
--- OUTSIDE RECORDS SUMMARY | 2024-02-08 04:05 | XMS_ITS | Encounter Summary ---
Author Organization [facility] Address [address] [facility] [address] [place] [address] Phone Care Team Providers Care Conche Loader And Unloader Name Role Phone Bigg Delarosa MD Unavailable [phone] Jefe Choe MD Unavailable + Melissa Rohdes MD Unavailable [phone] Kaushal Heath MD Primary Care Provider [phone] Reason for Visit * Reason Comments Post-op Visit Encounter Details Date Type Department Care Team (Late st Contact Info) Description 01/22/2024 4:00 PM SCHOOL INSPECTOR Office Visit [facility] Obstetrics and Gynecology [address] [place] [address] [place] [phone] Vanessa Carrasco, DIANA [address] [facility] [phone] [place] [address] Postop check (Primary Dx); Ovarian tumor of borderline malignancy, left Social History Tobacco Use Types Packs/Day Years Used Date Smoking Tobacco: Never Passive Smoke Exposure: Never Smokeless Tobacco: Never Tobacco Cessation:Counseling Given: Not Answered [facility] Utilities Answer Date Recorded In the past 12 months has [employer] electric, gas, oil, or water company threatened [...] often do you attend chur ch or yarsani services? 1 to 4 times per year 11/29/2023 Do you belong to any clubs o r organizations such as shinto groups, unions, fraternal or athletic groups, or [...] time in the past 12 m [facility], were you homeless or living in a group home (including now)? No 11/29/2023 Personal Safety [...] Sign Reading Time Taken Comments Blood Pressure 102/65 01/22/2024 4:07 PM SCHOOL INSPECTOR Pulse 98 01/22/2024 4:07 PM SCHOOL INSPECTOR Temperature 36.6 ??C (97.8 ??F) 01/22/2024 4:07 PM CS T Respiratory Rate 16 01/22/2024 4:07 PM SCHOOL INSPECTOR Oxygen Saturation 100% 01/22/2024 4:07 PM SCHOOL INSPECTOR Inhaled Oxygen Concentration - - Weight 53.1 kg (117 lb) 01/22/2024 4:07 PM SCHOOL INSPECTOR Height 154.9 cm (5' 0.98 ) 01/22/2024 4:07 PM CS T Body Mass Index 22.12 01/22/2024 4:07 PM SCHOOL INSPECTOR documented in this encounter Progress Notes * Vanessa Carrasco, DIANA - 01/22/2024 4:00 PM CST Gynecologic Oncology Postoperative Visit Farhana Russo 1960 63 y.o. 01/22/2024 Visit Diagnosis 1. Postop check 2. Ovarian tumor of borderline malignancy, left Subjective Surgery: TOTAL ABDOMINAL HYSTERECTOMY/ BILATERAL SALPINGO-OOPHORECTOMY (PRE OP URETERAL STENTS BY UROLOGY LEFT COLECTOMY & END COLOSTOMY BY DR. PEREZ ) Date of Surgery: 12/24/23 Farhana Russo is a 63 y.o. female who presents for postop visit and is accompanied by her . She reports feeling much better. She denies abdominal pain, vaginal bleeding, discharge, SOB, fever or chills. She is adjusting to ostomy which has stable soft output. Bladder habits are regular. Energy and appetite are improving. 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 No further treatment is indicated. Oncology History Mucinous cystadenoma, borderline malignancy (HCC) 12/24/2023 Surgery LIBRA/BSO/left colectomy I. Left ovary w/ mucinous borderline tumor, 18cm Ii. Left colon w/ perforated diverticulitis, segmental colitis associated w/ diverticulosis Review of Systems The patient-completed Review of Systems was reviewed and was scanned as an attachment to this encounter. Objective BP 102/65 (BP Location: Right arm, Patient Position: Sitting) Pulse 98 Temp 36.6 ??C (97.8 ??F)(Oral) Resp 16 Ht 154.9 cm (5' 0.98 ) Wt 53.1 kg (117 lb) SpO2 100% BMI 22.12 kg/m?? Physical exam: General Appearance: well, in no acute distress. Chest: clear to auscultation. Heart: regular rate & rhythm. Abdomen: soft, non-tender, without palpable masses, hernias, or enlarged liver or spleen; no fluid wave. Midline vertical incision is intact without erythema or discharge. Left ostomy appliance in place with soft brown output. Vagina: cuff intact, no bleeding or discharge Bimanual: cuff intact, non-tender Skin: without rashes. Lower extremities: without edema or calf tenderness. Lab/Radiology/Diagnostic Review: Surgical Pathology: A. Ovary and fallopian tube, left, salpingo-oophorectomy (including AFR1) - Mucinous borderline tumor - Greatest dimension 18 cm - Surface necrosis and multinucleate giant cell reaction - See comment - Fallopian tube with focal serosal adhesions B. Uterus, cervix, right fallopian tube and ovary, hysterectomy and right salpingo-oophorectomy - Cervix with chronic cervicitis and no evidence of dysplasia or malignancy - Endometrium with inactive pattern and no evidence of hyperplasia or malignancy - Myometrium with leiomyoma, multiple - Fallopian tube with focal serosal adhesions - Ovary with no histopathologic abnormality C. Left colon, partial colectomy - Transmural defect with associated acute and chronic inflammation, granulation tissue, and pericolonic abscess in the background of colonic diverticulosis, consistent with perforated diverticulitis - Colonic mucosa with features of mild chronic active colitis, consistent with segmental colitis associated with diverticulosis (SCAD) - Hyperplastic polyps - Negative for dysplasia or malignancy - Thirteen benign lymph nodes with no histopathologic abnormality A. Pelvic washing: - Negative for malignancy Assessment/Plan 63 y.o. recovering well following LIBRA/BSO at time of left colectomy and end colostomy with pathology showing mucinous borderline tumor and SCAD. -type II diabetes -ulcerative colitis, likely SCAD -hypertension -recent CCK -protein calorie malnutrition, severe Plan: Continue pelvic rest, limiting strenuous activity and heavy lifting for another 2 weeks. RTC [address] Rhodes. Follow up with GI as scheduled. Vanessa Carrasco NP CC: PCP: Kaushal Heath MD Enclosures:Note and Path Report Patient Care Team: Kaushal Heath MD as PCP - General (Internal Medicine) Bigg Delarosa MD as Referring Physician (Gastroenterology) Jefe Choe MD as Referring Physician (Gastroenterology) Melissa Rhodes MD as Consulting Physician (Gynecologic Oncology) Cosigned by Melissa Rhodes MD at 01/23/2024 6:12 PM SCHOOL INSPECTOR OL INSPECTOR OL INSPECTOR documented in this encounter Plan of Treatment Not on file documented as of this encounter Visit Diagnoses Diagnosis Postop check- Primary Follow-up examination, following unspecified surgery Ovarian tumor of borderline malignancy, left documented in this encounter Orders Appointment Requests Count Last Ordered Date Fi rst Ordered Date ONCBCN CLINIC APPOINTMENT REQUEST 1 024 documented in this encounter Additional Health Concerns Infection Onset Date Last Indicated Resolved Time MDR gram neg/ESBL 12/24/2023 12/24/2023 VRE 12/24/2023 12/24/2023 documented as of this encounter Care Teams Conche Loader And Unloader Relationship Specialty Start Date End Date Kaushal Heath MD [address] [place] [address] PCP - General Internal Medicine 10/30/23 Bigg Delarosa MD [address] [place] [address] Referring Physician Gastroenterology 10/15/23 Jefe Choe MD [address] [facility] [address] [facility] [address] [place] [address] Referring Physician Gastroenterology 10/15/23 Melissa Rhodes MD [address] [facility] GYNECOLOGIC ONCOLOGY, [address] [address] Consulting Physician Gynecologic Oncology 10/30/23 documented as of this encounter
--- OUTSIDE RECORDS SUMMARY | 2024-02-08 04:05 | XMS_ITS | Referral Summary ---
Author Organization [facility] Address [address] [place] [address] Care Team Providers Care Customer Marketing Assistant Name Role Phone Bigg Delarosa MD Unavailable [phone] Jefe Choe MD Unavailable + Melissa Rhodes MD Unavailable [phone] Kaushal Heath MD Primary Care Provider [phone] Encounters Date Type Department Care Team Description 02/03/2024 2:30 PM EQUIPMENT MAINT TECH Office Visit [facility] [address] [address] [place] [address] Yo Ferreira MD Colostomy in place (CMS/HCC) (HCC) (Primary Dx) 01/23/2024 Telephone [facility] Nutrition Counseling [address] [place] [address] 01/22/2024 4:00 PM EQUIPMENT MAINT TECH Office Visit [facility] Obstetrics and Gynecology [address] [facility] 13th [place] [address] [place] [address] Vanessa Carrasco NP Postop check (Primary Dx); Ovarian tumor of borderline malignancy, left 01/14/2024 Documentation [facility] Gastroenterology [address] [facility] 12th [place] [address] [place] [address] Che Gamble, ABHAY Treatment Plan Update (01/12/2024 rov) 01/12/2024 11:00 AM EQUIPMENT MAINT TECH Office Visit [facility] Gastroenterology [address] [facility] 2nd Floor [address] [place] [address] Katherine Stephenson NP Diverticulitis of large intestine with perforation and abscess, unspecified bleeding status (Primary Dx); Colostomy in place (CMS/HCC) (HCC) 01/08/2024 Telephone [facility] Nutrition Counseling [address] [place] [phone] Carmen Johnson, ESTHER 01/05/2024 Telephone [facility] Surgery [address] [place] [address] Medical Office Building 4 [address] [place] [phone] Eugenie Marie, ABHAY 01/02/2024 Telephone [facility] Gastroenterology [address] [facility] 12th [place] [address] [place] [address] [facility] Follow Up 11/25/2023 6:29 PM CDT - 12/30/2023 6:03 PM EQUIPMENT MAINT TECH Hospital Encounter [address] [phone] Maxime Lee MD Jeon, Alvin, MD Morgan, Zachary A., MD Patel, Kieran, MD Mutch, Matthew G., MD Splenic abscess (Primary Dx); Pulmonary nodule; Hepatic abscess; Ulcerative pancolitis with complication (CMS/HCC) (HCC); Diverticulitis of large intestine with perforation without abscess or bleeding Discharge Disposition: Discharge to home, home health skilled care 12/24/2023 Orders Only [address] [address] Yo Ferreira MD 12/24/2023 Orders Only [facility] Operating Room 1 [place] [phone] Yo Ferreira MD 12/24/2023 11:43 AM EQUIPMENT MAINT TECH Anesthesia Event [facility] Operating Room [address] [place] [phone] Stan Malik MD Hawksworth, Mallory Anne, MD 12/24/2023 12:10 PM EQUIPMENT MAINT TECH - 12/24/2023 5:55 PM EQUIPMENT MAINT TECH Surgery [facility] Operating Room [address] [place] [address] Yo Ferreira MD (MUTCH/ MCCOURTCOMBO) RESECTION LEFT COLON 12/08/2023 2:36 PM CDT Anesthesia Event [facility] 1 [place] [address] Chris Ricci NP 11/25/2023 Orders Only [facility] Scanning, Provider 11/25/2023 Documentation [facility] Gastroenterology [address] [place] [address] 12th [place] [address] [place] [address] Che Gamble, ABHAY Treatment Plan Update (11/25/2023 rov) 11/25/2023 9:00 AM CDT Office Visit [facility] Gastroenterology [address] [place] [address] [place] [address] [place] [address] Gildardo Jung MD History of chronic ulcerative colitis (Primary Dx); Moderate protein-calorie malnutrition (CMS/HCC) (HCC) 11/24/2023 Orders Only [facility] Scanning, Provider 11/14/2023 Telephone [facility] Oncology [address] [place] [address] 7th [place] [address] [place] [address] 11/14/2023 SHOP/CHAP Initial Outreach [facility] OP CASE MANAGEMENT [address] [place] [address] Chen Philippe LCSW 11/14/2023 Orders Only [facility] Michelle Patel, ABHAY 11/13/2023 12:12 PM CDT Anesthesia Event [facility] [address] [place] [address] [place] [address] Ciro Seay MD 11/13/2023 Orders Only [facility] Gastroenterology [address] [facility] 12th [place] [address] [place] [address] Gildardo Jung MD Diverticulitis of large intestine with abscess without bleeding (Primary Dx) 11/13/2023 2:31 PM CDT - 11/13/2023 11:59 PM CDT Hospital Encounter [facility] [address] [place] [address] Melissa Rhodes MD Abdominal pain Discharge Disposition: Discharge to home or self care 11/13/2023 12:30 PM CDT - 11/13/2023 1:15 PM CDT Surgery [facility] [address] [address] Gildardo Jung MD COLON BIOPSY 11/13/2023 11:20 AM CDT - 11/13/2023 2:15 PM CDT Hospital Encounter [facility] [address] [address] Gildardo Jung MD History of chronic ulcerative colitis Discharge Disposition: Discharge to home or self care 11/12/2023 SHOP/CHAP Initial Outreach [facility] OP CASE MANAGEMENT [address] [place] [address] Chen Philippe, STAFF APPRAISER 11/10/2023 Orders Only [facility] Gastroenterology [facility] 12th [place] [address] [place] [address] Gildrado Jung MD from Last 3 Months Allergies Active Allergy Reactions Criticality Noted Date [...] every 6 (six) hours as needed (pain) Active polyethylene glycol (MIRALAX) 17 gram/dose bulk powderIndication s:constipation Take 17 g by mouth daily 116 g 2 4 Active Additional Information Patient not taking.Reported on 02/03/2024 oxyCODONE (ROXICODONE) 5 mg immediate release tabletIndication s:Pain Take 1 tablet (5 mg total) by mouth every 4 (four) hours as needed for pain 15 tablet Active prenat.vits,erica, bat-kdyh-aicse tablet Take by mouth Active enoxaparin (LOVENOX) 40 mg/0.4 mL syringeIndicatio ns:Deep Vein Thrombosis Prevention Inject 0.4 mL (40 mg total) under the skin daily for 21 days 8.4 mL 4 024 Active Problems Problem Noted Date Diagnosed Date Colostomy in place ([facility]) 01/13/2024 Fever 12/09/2023 Ulcerative pancolitis with complication ([facility] ) 12/05/2023 Assessment & Plan (12/26/2023 11:47 AM EQUIPMENT MAINT TECH): Patient is a 63 y.o. female with a history of hypertension, type 2 diabetes, and inflammatory bowel disease who is admitted from Gastroenterology Clinic for progressive weight loss and nausea in the setting of multiple admissions for diverticulitis complicated by contained sigmoid perforation, scattered liver and spleen abscesses and adnexal mass. She was admitted to [facility] on 11/24 for further workup and ID [...] Patient went to the OR 12/23 with FIELD OPERATIONS TECHNICIAN, CRS and urology for ex lap, left colectomy with end colostomy, LIBRA, BSO and ureteral stent placement. Surgery reporting source control archived. Given source control has been achieved, we are planning on 5 days of antibiotics from surgery. On assessment today, patient reports minimal use of her PHOTOGRAPHIC SUPERVISOR and that she typically has abdominal [...] 11/26/2023 Assessment & Plan (12/25/2023 12:55 PM EQUIPMENT MAINT TECH): Near resolution of hepatic and splenic abscesses. No plans for repeat imaging given improvement. Continue antibiotics as described elsewhere. Pulmonary nodule 11/26/2023 Assessment & Plan (12/26/2023 11:38 AM EQUIPMENT MAINT TECH): Patient is a 63 y.o. female with a history of hypertension, type 2 diabetes, and inflammatory bowel disease who is admitted from Gastroenterology Clinic for progressive weight loss and nausea in the setting of multiple admissions for diverticulitis complicated by contained sigmoid perforation, scattered liver and spleen abscesses and adnexal mass. She was admitted to [facility] on 11/24 for further workup and ID [...] 11/26/2023 Assessment & Plan (12/25/2023 12:55 PM EQUIPMENT MAINT TECH): Near resolution of hepatic and splenic abscesses. [...] (CMS/HCC) 10/03/2023 11/25/2023 Abdominal pain 10/02/2023 10/20/2023 Immunizations Name Administration Dates Next Due Tdap 10/27/2020,12/29/2019 Social History Tobacco Use Types Packs/Day Years Used Date Smoking Tobacco: Never Passive Smoke Exposure: Never Smokeless Tobacco: Never Tobacco Cessation:Counseling Given: Not Answered [facility] Utilities Answer Date Recorded In the past 12 months has th e electric, gas, oil, or water company threatened [...] often do you attend chur ch or uatsdin services? 1 to 4 times per year 11/29/2023 Do you belong to any clubs o r organizations such as roman catholic groups, unions, fraternal or athletic groups, [...] any time in the past 12 m [facility], were you homeless or living in a penitentiary (including now)? No 11/29/2023 Personal Safety Answer [...] on file Sexual Orientation Not on file Last Filed Vital Signs Vital Sign Reading Time Taken Comments Blood Pressure 110/68 02/03/2024 2:08 PM EQUIPMENT MAINT TECH Pulse 99 02/03/2024 2:08 PM EQUIPMENT MAINT TECH Temperature 36.7 ??C (98 ??F) 02/03/2024 2:08 PM EQUIPMENT MAINT TECH Respiratory Rate 16 01/22/2024 4:07 PM EQUIPMENT MAINT TECH Oxygen Saturation 100% 02/03/2024 2:08 PM EQUIPMENT MAINT TECH Inhaled Oxygen Concentration - - Weight 53.5 kg (118 lb) 02/03/2024 2:08 PM EQUIPMENT MAINT TECH Height 154.9 cm (5' 1 ) 02/03/2024 2:08 PM EQUIPMENT MAINT TECH Body Mass Index 22.3 02/03/2024 2:08 PM EQUIPMENT MAINT TECH Plan of Treatment Not on file Procedures Procedure Name Priority Date/Time Associated Diagnosis Comments POCT GLUCOSE DEVICE Routine 12/30/2023 12:34 PM EQUIPMENT MAINT TECH POCT GLUCOSE DEVICE Routine 12/30/2023 8 :18 AM EQUIPMENT MAINT TECH POCT GLUCOSE DEVICE Routine 12/29/2023 8 :02 PM EQUIPMENT MAINT TECH POCT GLUCOSE DEVICE Routine 12/29/2023 5 :35 PM EQUIPMENT MAINT TECH POCT GLUCOSE DEVICE Routine 12/29/2023 11:55 AM EQUIPMENT MAINT TECH POCT GLUCOSE DEVICE Routine 12/29/2023 7 :57 AM EQUIPMENT MAINT TECH EGFR Timed 12/28/2023 10:18 PM EQUIPMENT MAINT TECH BASIC METABOLIC PANEL Timed 12/28/2023 10:18 PM EQUIPMENT MAINT TECH CBC WITHOUT DIFFERENTIAL Timed 12/28/2023 10:18 PM EQUIPMENT MAINT TECH POCT GLUCOSE DEVICE Routine 12/28/2023 9 :13 PM EQUIPMENT MAINT TECH POCT GLUCOSE DEVICE Routine 12/28/2023 4 :21 PM EQUIPMENT MAINT TECH POCT GLUCOSE DEVICE Routine 12/28/2023 12:39 PM EQUIPMENT MAINT TECH POCT GLUCOSE DEVICE Routine 12/28/2023 7 :33 AM EQUIPMENT MAINT TECH POCT GLUCOSE DEVICE Routine 12/27/2023 8 :57 PM EQUIPMENT MAINT TECH EGFR Routine 12/27/2023 8:56 PM EQUIPMENT MAINT TECH BASIC METABOLIC PANEL Routine 12/27/2023 8:56 PM EQUIPMENT MAINT TECH CBC WITHOUT DIFFERENTIAL Routine 12/27/2023 8:56 PM EQUIPMENT MAINT TECH POCT GLUCOSE DEVICE Routine 12/27/2023 6 :29 PM EQUIPMENT MAINT TECH POCT GLUCOSE DEVICE Routine 12/27/2023 12:[address] ABDOMEN PELVIS W CONTRAST ED Urgent/IP Urgent 12/27/2023 11:33 AM EQUIPMENT MAINT TECH POCT GLUCOSE DEVICE Routine 12/27/2023 7 :54 AM EQUIPMENT MAINT TECH DIFFERENTIAL AUTO STAT 12/27/2023 3:3 9 AM EQUIPMENT MAINT TECH CBC WITH AUTO DIFFERENTIAL STAT 12/27/2023 3:39 AM EQUIPMENT MAINT TECH TRANSFUSE RED BLOOD CELLS Timed 12/27/2023 12:32 AM EQUIPMENT MAINT TECH PREPARE RBC Timed 12/26/2023 11:49 PM EQUIPMENT MAINT TECH EGFR Timed 12/26/2023 10:32 PM EQUIPMENT MAINT TECH BASIC METABOLIC PANEL Timed 12/26/2023 10:32 PM EQUIPMENT MAINT TECH CBC WITHOUT DIFFERENTIAL Timed 12/26/2023 10:32 PM EQUIPMENT MAINT TECH POCT GLUCOSE DEVICE Routine 12/26/2023 7 :59 PM EQUIPMENT MAINT TECH POCT GLUCOSE DEVICE Routine 12/26/2023 5 :27 PM EQUIPMENT MAINT TECH POCT GLUCOSE DEVICE Routine 12/26/2023 3 :49 PM EQUIPMENT MAINT TECH POCT GLUCOSE DEVICE Routine 12/26/2023 12:05 PM EQUIPMENT MAINT TECH POCT GLUCOSE DEVICE Routine 12/26/2023 8 :18 AM EQUIPMENT MAINT TECH LACTATE STAT 12/26/2023 2:45 AM EQUIPMENT MAINT TECH CBC WITHOUT DIFFERENTIAL STAT 12/26/2023 2:45 AM EQUIPMENT MAINT TECH TRANSFUSE RED BLOOD CELLS Timed 12/25/2023 11:02 PM EQUIPMENT MAINT TECH PREPARE RBC Timed 12/25/2023 10:25 PM EQUIPMENT MAINT TECH HEPATIC FUNCTION PANEL Timed 8:46 PM EQUIPMENT MAINT TECH EGFR Timed 12/25/2023 8:46 PM EQUIPMENT MAINT TECH BASIC METABOLIC PANEL Timed 12/25/2023 8:46 PM EQUIPMENT MAINT TECH CBC WITHOUT DIFFERENTIAL Timed 12/25/2023 8:46 PM EQUIPMENT MAINT TECH POCT GLUCOSE DEVICE Routine 12/25/2023 8 :39 PM EQUIPMENT MAINT TECH POCT GLUCOSE DEVICE Routine 12/25/2023 4 :[address] CHEST W CONTRAST IP Routine 12/25/2023 4 :34 PM EQUIPMENT MAINT TECH POCT GLUCOSE DEVICE Routine 12/25/2023 2 :12 PM EQUIPMENT MAINT TECH POCT GLUCOSE DEVICE Routine 12/25/2023 11:56 AM EQUIPMENT MAINT TECH INFECTION PREVENTION ANGIE AURIS PCR, SURVEILLANCE Routine 12/25/2023 10:27 AM EQUIPMENT MAINT TECH POCT GLUCOSE DEVICE Routine 12/25/2023 8 :45 AM EQUIPMENT MAINT TECH EGFR Timed 12/24/2023 9:58 PM EQUIPMENT MAINT TECH BASIC METABOLIC PANEL Timed 12/24/2023 9:58 PM EQUIPMENT MAINT TECH CBC WITHOUT DIFFERENTIAL Timed 12/24/2023 9:58 PM EQUIPMENT MAINT TECH POCT GLUCOSE DEVICE Routine 12/24/2023 8 :41 PM EQUIPMENT MAINT TECH POCT GLUCOSE DEVICE Routine 12/24/2023 6 :04 PM EQUIPMENT MAINT TECH POC BLOOD GAS AND CHEMISTRIES, ARTERIAL Routine 12/24/2023 4:47 PM EQUIPMENT MAINT TECH POCT GLUCOSE DEVICE Routine 12/24/2023 4 :07 PM EQUIPMENT MAINT TECH POC BLOOD GAS AND CHEMISTRIES, ARTERIAL Routine 12/24/2023 3:22 PM EQUIPMENT MAINT TECH MYCOBACTERIOLOGY AFB CULTURE AND ACID-FAST STAIN Routine 12/24/2023 3:00 PM EQUIPMENT MAINT TECH MYCOLOGY (FUNGAL) CULTURE AND STAIN Routine 12/24/2023 3:00 PM EQUIPMENT MAINT TECH TISSUE AEROBIC AND ANAEROBIC CULTURE AND GRAM STAIN Routine 12/24/2023 3:00 PM EQUIPMENT MAINT TECH POC BLOOD GAS AND CHEMISTRIES, ARTERIAL Routine 12/24/2023 1:47 PM EQUIPMENT MAINT TECH [place] AN PROCEDURE PLACEHOLDER Routine 12/24/2023 1:38 PM EQUIPMENT MAINT TECH [place] AN PROCEDURE PLACEHOLDER Routine 12/24/2023 1:37 PM EQUIPMENT MAINT TECH [place] AN ELECTIVE ENDOTRACHEAL AIRWAY Routine 12/24/2023 1:37 PM EQUIPMENT MAINT TECH SURGICAL PATHOLOGY Routine 12/24/2023 12:57 PM EQUIPMENT MAINT TECH CYTOLOGY Routine 12/24/2023 12:49 PM EQUIPMENT MAINT TECH PLACEMENT PREOPERATIVE STENT - URETERAL 12/24/2023 11:46 AM EQUIPMENT MAINT TECH Ulcerative pancolitis with complication (CMS/HCC) (HCC) Case Notes 115@0852- Panel being added per Ahmed via phone call (EF) HYSTERECTOMY ABDOMINAL SALPINGO-OOPHORECTOMY 12/24/2023 11:46 AM EQUIPMENT MAINT TECH Ulcerative pancolitis with complication (CMS/HCC) (HCC) Case Notes 115@0852- Panel being added per Ahmed via phone call (EF) COLOSTOMY 12/24/2023 11:46 AM EQUIPMENT MAINT TECH Ulcerative pancolitis with complication (CMS/HCC) (HCC) Case Notes 11/5@0852- Panel being added per Ahmed via phone call (EF) RESECTION LEFT COLON 12/24/2023 11:46 AM EQUIPMENT MAINT TECH Ulcerative pancolitis with complication (CMS/HCC) (HCC) Case Notes 115@0852- Panel being added per Ahmed via phone call (EF) TYPE AND SCREEN STAT 12/24/2023 11:13 AM EQUIPMENT MAINT TECH POC BLOOD GAS AND CHEMISTRIES, VENOUS Routine 12/24/2023 11:09 AM EQUIPMENT MAINT TECH EGFR Routine 12/22/2023 9:36 PM EQUIPMENT MAINT TECH DIFFERENTIAL AUTO Routine 12/22/2023 9:3 6 PM EQUIPMENT MAINT TECH TYPE AND SCREEN Timed 12/22/2023 9:36 PM EQUIPMENT MAINT TECH PROTIME-INR Routine 12/22/2023 9:36 PM EQUIPMENT MAINT TECH RENAL FUNCTION PANEL Routine 12/22/2023 9:36 PM EQUIPMENT MAINT TECH MAGNESIUM Routine 12/22/2023 9:36 PM EQUIPMENT MAINT TECH CBC WITH AUTO DIFFERENTIAL Routine 12/22/2023 9:36 PM EQUIPMENT MAINT TECH INFECTION PREVENTION ANGIE AURIS PCR, SURVEILLANCE Routine 12/21/2023 9:32 PM EQUIPMENT MAINT TECH EGFR Timed 12/19/2023 10:29 PM CDT DIFFERENTIAL [...] AM CDT POCT GLUCOSE DEVICE Routine 12/05/2023 8:02 AM CDT EGFR STAT 12/04/2023 10:19 PM [...] 12/02/2023 12:07 PM CDT BLOOD MISC TO LOGAN Routine 12/02/2023 9: 42 AM CDT POCT [...] Results * POCT glucose (12/30/2023 12:34 PM EQUIPMENT MAINT TECH) Glucose, POC 182 70 - 199 mg/dL Blood 12/30/2023 12:3 4 PM EQUIPMENT MAINT TECH 12/30/2023 12:34 PM EQUIPMENT MAINT TECH Yo Ferreira MD LAB POCT ORDERABLES - DEVICE Final Result Performing Organization Address City/[facility] Co de Phone Number [facility] [place] [address] * POCT glucose (12/30/2023 8:18 AM EQUIPMENT MAINT TECH) Glucose, POC 109 70 - 199 mg/dL Blood 12/30/2023 8:18 AM EQUIPMENT MAINT TECH 12/30/2023 8:18 AM EQUIPMENT MAINT TECH Yo Ferreira MD LAB POCT ORDERABLES - DEVICE Final Result Performing Organization Address [facility] Co de Phone Number [facility] [place] [address] * POCT glucose (12/29/2023 8:02 PM EQUIPMENT MAINT TECH) Glucose, POC 142 70 - 199 mg/dL Blood 12/29/2023 8:02 PM EQUIPMENT MAINT TECH 12/29/2023 8:02 PM EQUIPMENT MAINT TECH Yo Ferreira MD LAB POCT ORDERABLES - DEVICE Final Result Performing Organization Address City/[facility] Co de Phone Number [facility] [place] [address] * POCT glucose (12/29/2023 5:35 PM EQUIPMENT MAINT TECH) Glucose, POC 166 70 - 199 mg/dL Blood 12/29/2023 5:35 PM EQUIPMENT MAINT TECH 12/29/2023 5:35 PM EQUIPMENT MAINT TECH Yo Ferreira MD LAB POCT ORDERABLES - DEVICE Final Result Performing Organization Address City/[facility]/ZIP Co de Phone Number [facility] [place] [address] * POCT glucose (12/29/2023 11:55 AM EQUIPMENT MAINT TECH) Glucose, POC 130 70 - 199 mg/dL Blood 12/29/2023 11:5 5 AM EQUIPMENT MAINT TECH 12/29/2023 11:55 AM EQUIPMENT MAINT TECH Yo Ferreira MD LAB POCT ORDERABLES - DEVICE Final Result Performing Organization Address [facility] de Phone Number [facility] [place] [address] * POCT glucose (12/29/2023 7:57 AM EQUIPMENT MAINT TECH) Glucose, POC 122 70 - 199 mg/dL Blood 12/29/2023 7:57 AM EQUIPMENT MAINT TECH 12/29/2023 7:57 AM EQUIPMENT MAINT TECH Yo Ferreira MD LAB POCT ORDERABLES - DEVICE Final Result Performing Organization Address [facility] de Phone Number [facility] [place] [address] * eGFR (12/28/2023 10:18 PM EQUIPMENT MAINT TECH) eGFR 83 >=60 mL/min/1. 73 m2 Comment: [...] reviewed 2020. Blood 12/28/2023 10:1 8 PM EQUIPMENT MAINT TECH 12/28/2023 11:12 PM EQUIPMENT MAINT TECH us Yo Ferreira MD LAB BLOOD ORDERABLES Final R esult [facility] [place] [address] * (ABNORMAL) CBC without differential (12/28/2023 10:18 PM EQUIPMENT MAINT TECH) WBC 10.9(H) 3.8 - 9.9 K/cumm Hgb 9.3(L) 11.9 - 15.5 g/dL [facility] Hct 29.5(L) 35.6 - 45.5 % [facility] Plt 384 150 - 400 K/cumm [facility] MPV 8.9(L) 9.1 - 12.3 fL [facility] RBC 3.42(L) 3.90 - 5.20 M/cumm [facility] MCV 86.3 81.3 - 96.4 fL [facility] MCH 27.2 27.1 - 33.3 pg [facility] MCHC 31.5(L) 32.3 - 35.7 g/dL [facility] RDW CV 17.2(H) 11.1 - 14.9 % [facility] RDW SD 54.6(H) 35.7 - 48.1 fL [facility] NRBC abs 0.00 0.00 - 0.01 K/cumm [facility] Blood 12/28/2023 10:1 8 PM EQUIPMENT MAINT TECH 12/28/2023 11:11 PM EQUIPMENT MAINT TECH us Yo Ferreira MD LAB BLOOD ORDERABLES Final R esult Performing Organization Address City/[facility]/ZIP Co de Phone Number [facility] [place] [address] * (ABNORMAL) Basic metabolic panel (12/28/2023 10:18 PM EQUIPMENT MAINT TECH) [facility] Sodium 138 135 - 145 mmol/L Potassium, pl 4.4 3.3 - 4.9 mmol/L [facility] Chloride 104 97 - 110 mmol/L [facility] CO2 26 22 - 32 mmol/L [facility] Anion gap 8 2 - 15 mmol/L [facility] BUN 20 6 - 25 mg/dL [facility] Creatinine 0.79 0.60 - 1.10 mg/dL [facility] Glucose 135 70 - 199 mg/dL [facility] Comment: Interpretive Data Fasting glucose >/= 126 [...] 2022. Calcium 8.1(L) 8.5 - 10.3 mg/dL [facility] Blood 12/28/2023 10:1 8 PM EQUIPMENT MAINT TECH 12/28/2023 11:12 PM EQUIPMENT MAINT TECH Yo Ferreira MD LAB BLOOD ORDERABLES Final R esult Performing Organization Address [facility]/ZIP Co de Phone Number [facility] [place] [address] * POCT glucose (12/28/2023 9:13 PM EQUIPMENT MAINT TECH) Glucose, POC 160 70 - 199 mg/dL Blood 12/28/2023 9:13 PM EQUIPMENT MAINT TECH 12/28/2023 9:13 PM EQUIPMENT MAINT TECH us Yo Ferreira MD LAB POCT ORDERABLES - DEVICE Final Result Performing Organization Address [facility] Co de Phone Number [facility] [place] [address] * POCT glucose (12/28/2023 4:21 PM EQUIPMENT MAINT TECH) Glucose, POC 125 70 - 199 mg/dL Blood 12/28/2023 4:21 PM EQUIPMENT MAINT TECH 12/28/2023 4:21 PM EQUIPMENT MAINT TECH us Yo Ferreira MD LAB POCT ORDERABLES - DEVICE Final Result Performing Organization Address [facility] de Phone Number [facility] [place] [address] * POCT glucose (12/28/2023 12:39 PM EQUIPMENT MAINT TECH) Glucose, POC 165 70 - 199 mg/dL Blood 12/28/2023 12:3 9 PM EQUIPMENT MAINT TECH 12/28/2023 12:39 PM EQUIPMENT MAINT TECH us Yo Ferreira MD LAB POCT ORDERABLES - DEVICE Final Result Performing Organization Address [facility] Co de Phone Number [facility] [place] [address] * POCT glucose (12/28/2023 7:33 AM EQUIPMENT MAINT TECH) Glucose, POC 101 70 - 199 mg/dL Blood 12/28/2023 7:33 AM EQUIPMENT MAINT TECH 12/28/2023 7:33 AM EQUIPMENT MAINT TECH us Yo Ferreira MD LAB POCT ORDERABLES - DEVICE Final Result Performing Organization Address [facility] Co de Phone Number GO ROBERT Abdullahi [facility] [place] [address] * POCT glucose (12/27/2023 8:57 PM EQUIPMENT MAINT TECH) Glucose, POC 113 70 - 199 mg/dL Blood 12/27/2023 8:57 PM EQUIPMENT MAINT TECH 12/27/2023 8:57 PM EQUIPMENT MAINT TECH Yo Ferreira MD LAB POCT ORDERABLES - DEVICE Final Result Performing Organization Address [facility] de Phone Number [facility] [place] [address] * eGFR (12/27/2023 8:56 PM EQUIPMENT MAINT TECH) Pathologist [facility] eGFR 71 >=60 mL/min/1. 73 m2 Comment: [...] last reviewed 2020. Blood 12/27/2023 8:56 PM EQUIPMENT MAINT TECH 12/27/2023 9:53 PM EQUIPMENT MAINT TECH us Yo Ferreira MD LAB BLOOD ORDERABLES Final R esult Performing Organization Address City/[facility]/ZIP Co de Phone Number [facility] [place] [address] * (ABNORMAL) CBC without differential (12/27/2023 8:56 PM EQUIPMENT MAINT TECH) WBC 10.9(H) 3.8 - 9.9 K/cumm Hgb 8.5(L) 11.9 - 15.5 g/dL [facility] Hct 27.6(L) 35.6 - 45.5 % [facility] Plt 364 150 - 400 K/cumm [facility] [facility] MPV 9.2 9.1 - 12.3 fL [facility] RBC 3.15(L) 3.90 - 5.20 M/cumm [facility] MCV 87.6 81.3 - 96.4 fL [facility] MCH 27.0(L) 27.1 - 33.3 pg [facility] MCHC 30.8(L) 32.3 - 35.7 g/dL [facility] RDW CV 17.5(H) 11.1 - 14.9 % [facility] RDW SD 55.9(H) 35.7 - 48.1 fL [facility] NRBC abs 0.00 0.00 - 0.01 K/cumm [facility] Blood 12/27/2023 8:56 PM EQUIPMENT MAINT TECH 12/27/2023 9:53 PM EQUIPMENT MAINT TECH us Yo Ferreira MD LAB BLOOD ORDERABLES Final R esult Performing Organization Address City/[facility]/ZIP Co de Phone Number [facility] [place] [address] * (ABNORMAL) Basic metabolic panel (12/27/2023 8:56 PM EQUIPMENT MAINT TECH) Sodium 137 135 - 145 mmol/L Potassium, pl 4.0 3.3 - 4.9 mmol/L [facility] Chloride 104 97 - 110 mmol/L [facility] CO2 27 22 - 32 mmol/L [facility] Anion gap 6 2 - 15 mmol/L [facility] BUN 22 6 - 25 mg/dL [facility] Creatinine 0.90 0.60 - 1.10 mg/dL [facility] Glucose 98 70 - 199 mg/dL [facility] Comment: Interpretive Data Fasting glucose >/= 126 [...] 2022. Calcium 8.0(L) 8.5 - 10.3 mg/dL [facility] Blood 12/27/2023 8:56 PM EQUIPMENT MAINT TECH 12/27/2023 9:53 PM EQUIPMENT MAINT TECH us Yo Ferreira MD LAB BLOOD ORDERABLES Final R esult Performing Organization Address City/[facility]/ZIP Co de Phone Number [facility] [place] [address] * POCT glucose (12/27/2023 6:29 PM EQUIPMENT MAINT TECH) Glucose, POC 196 70 - 199 mg/dL Blood 12/27/2023 6:29 PM EQUIPMENT MAINT TECH 12/27/2023 6:29 PM EQUIPMENT MAINT TECH Yo Ferreira MD LAB POCT ORDERABLES - DEVICE Final Result Performing Organization Address City/[facility]/ZIP Co de Phone Number GO [facility] [place] [address] * POCT glucose (12/27/2023 12:36 PM EQUIPMENT MAINT TECH) Glucose, POC 164 70 - 199 mg/dL Blood 12/27/2023 12:3 6 PM EQUIPMENT MAINT TECH 12/27/2023 12:36 PM EQUIPMENT MAINT TECH us Yo Ferreira MD LAB POCT ORDERABLES - DEVICE Final Result Performing Organization Address City/State/[facility] Co de Phone Number GO [facility] [place] [address] * CT Abdomen Pelvis W Contrast (12/27/2023 11:33 AM EQUIPMENT MAINT TECH) Anatomical Region Laterality Modality Body N/A Computed Tomogra phy 12/27/2023 12:1 1 PM EQUIPMENT MAINT TECH Impressions 12/27/2023 12:11 PM EQUIPMENT MAINT TECH 1. ??Status post left colectomy and hysterectomy [...] Jayro Wheeler M.D. Narrative 12/27/2023 12:11 PM EQUIPMENT MAINT TECH EXAMINATION: ??Computed tomography of the abdomen and [...] lt * POCT glucose (12/27/2023 7:54 AM EQUIPMENT MAINT TECH) Pathologist [facility] Glucose, POC 115 70 - 199 mg/dL Blood 12/27/2023 7:54 AM EQUIPMENT MAINT TECH 12/27/2023 7:54 AM EQUIPMENT MAINT TECH Yo Ferreira MD LAB POCT ORDERABLES - DEVICE Final Result [facility] [place] [address] * (ABNORMAL) Differential, auto (12/27/2023 3:39 AM EQUIPMENT MAINT TECH) [facility] Neutrophil abs 8.3(H) 1.5 - 6.5 K/cumm Imm gran abs 0.1 0.0 - 0.1 K/cumm [facility] Lymphocyte abs 1.3 0.8 - 3.3 K/cumm [facility] Monocyte abs 0.9(H) 0.2 - 0.8 K/cumm [facility] Eosinophil abs 0.5 0.0 - 0.5 K[facility]umm [facility] Basophil abs 0.0 0.0 - 0.1 K/cumm [facility] Neutrophil pct 74.4 % [facility] Comment: Interpretive Data Percent cell count reference ranges are not reported, since discordance with absolute values may lead to misinterpretation of CBC data. Current Interpretive Data was last revised on 2017. Imm gran pct 0.5 % [facility] Comment: Interpretive Data Percent cell count reference ranges are not reported, since discordance with absolute values may lead to misinterpretation of CBC data. Current Interpretive Data was last revised on 2017. Lymphocyte pct 11.9 % [facility] Comment: Interpretive Data Percent cell count reference ranges are not reported, since discordance with absolute values may lead to misinterpretation of CBC data. Current Interpretive Data was last revised on 2017. Monocyte pct 8.1 % [facility] Comment: Interpretive Data Percent cell count reference ranges are not reported, since discordance with absolute values may lead to misinterpretation of CBC data. Current Interpretive Data was last revised on 2017. Eosinophil pct 4.8 % [facility] Comment: Interpretive Data Percent cell count reference ranges are not reported, since discordance with absolute values may lead to misinterpretation of CBC data. Current Interpretive Data was last revised on 2017. Basophil pct 0.3 % [facility] Comment: Interpretive Data Percent cell count reference ranges are not reported, since discordance with absolute values may lead to misinterpretation of CBC data. Current Interpretive Data was last revised on 2017. Blood 12/27/2023 3:39 AM EQUIPMENT MAINT TECH 12/27/2023 4:45 AM EQUIPMENT MAINT TECH us Mario Massey MD LAB BLOOD O RDERABLES Final Result [facility] [place] [address] * (ABNORMAL) CBC with auto differential (12/27/2023 3:39 AM EQUIPMENT MAINT TECH) WBC 11.2(H) 3.8 - 9.9 K/cumm Hgb 8.5(L) 11.9 - 15.5 g/dL [facility] Hct 26.7(L) 35.6 - 45.5 % [facility] Plt 288 150 - 400 K/cumm [facility] MPV 9.6 9.1 - 12.3 fL [facility] RBC 3.14(L) 3.90 - 5.20 M/cumm [facility] MCV 85.0 81.3 - 96.4 fL [facility] MCH 27.1 27.1 - 33.3 pg [facility] MCHC 31.8(L) 32.3 - 35.7 g/dL [facility] RDW CV 17.1(H) 11.1 - 14.9 % [facility] RDW SD 53.3(H) 35.7 - 48.1 fL [facility] NRBC abs 0.00 0.00 - 0.01 K/cumm [facility] Blood 12/27/2023 3:39 AM EQUIPMENT MAINT TECH 12/27/2023 4:45 AM EQUIPMENT MAINT TECH Mario Massey MD LAB BLOOD O RDERABLES Final Result Performing Organization Address [facility] Co de Phone Number [facility] [place] [address] * Transfuse RBC (12/27/2023 2:47 AM EQUIPMENT MAINT TECH) Blood Yo Ferreira MD BLOOD TRANSFUSION ORDERABLES Final Result Performing Organization Address [facility] [place] [address] * Prepare RBC: 1 Units (12/26/2023 11:49 PM EQUIPMENT MAINT TECH) Pathologist [facility] Product code [id number] Unit Number [id number] [facility] Product Blood Type OPOS [facility] Dispense Status PRESUMED TRANSFUSED [facility] Blood 12/26/2023 11:4 9 PM EQUIPMENT MAINT TECH 12/26/2023 11:49 PM EQUIPMENT MAINT TECH Narrative [facility] - 12/27/2023 8:00 AM EQUIPMENT MAINT TECH Are special requirements needed? (All products are leukoreduced and CMV- safe)- >No Date required:-[id number] LRRBC # of [id number] Reasons:-Hgb <7 g/dL} Yo Ferreira MD BLOOD BANK PRODUCT ORDERABLE S Final Result Performing Organization Address [facility] Co de Phone Number [facility] [employer] [place], [place] [id number] * (ABNORMAL) eGFR (12/26/2023 10:32 PM EQUIPMENT MAINT TECH) Pathologist [facility] eGFR 59(L) >=60 mL/min/1. 73 m2 Comment: [...] reviewed 2020. Blood 12/26/2023 10:3 2 PM EQUIPMENT MAINT TECH 12/26/2023 11:21 PM EQUIPMENT MAINT TECH us Lindsey Tyler CASE BRIEFER LAB BLOOD ORDERABLES Final Res ult [facility] [place] [address] * (ABNORMAL) CBC without differential (12/26/2023 10:32 PM EQUIPMENT MAINT TECH) WBC 10.1(H) 3.8 - 9.9 K/cumm Hgb 6.2(C) 11.9 - 15.5 g/dL GO [facility] Comment:Critical result call ed to and read back by ALISON DAWSON RN on 12 26 2023 at 2335 to [place]. Hct 20.5(L) 35.6 - 45.5 % [facility] Plt 323 150 - 400 K/cumm [facility] MPV 9.4 9.1 - 12.3 fL [facility] RBC 2.33(L) 3.90 - 5.20 M/cumm [facility] MCV 88.0 81.3 - 96.4 fL [facility] MCH 26.6(L) 27.1 - 33.3 pg [facility] MCHC 30.2(L) 32.3 - 35.7 g/dL [facility] RDW CV 17.2(H) 11.1 - 14.9 % [facility] RDW SD 55.1(H) 35.7 - 48.1 fL [facility] NRBC abs 0.00 0.00 - 0.01 K/cumm [facility] Blood 12/26/2023 10:3 2 PM EQUIPMENT MAINT TECH 12/26/2023 11:21 PM EQUIPMENT MAINT TECH Lindsey Tyler CASE BRIEFER LAB BLOOD ORDERABLES Final Res ult [facility] [place] [address] * (ABNORMAL) Basic metabolic panel (12/26/2023 10:32 PM EQUIPMENT MAINT TECH) Sodium 137 135 - 145 mmol/L Potassium, pl 3.9 3.3 - 4.9 mmol/L [facility] Chloride 103 97 - 110 mmol/L [facility] CO2 26 22 - 32 mmol/L [facility] Anion gap 8 2 - 15 mmol/L [facility] BUN 21 6 - 25 mg/dL [facility] Creatinine 1.05 0.60 - 1.10 mg/dL [facility] Glucose 121 70 - 199 mg/dL [facility] Comment: Interpretive Data Fasting glucose >/= 126 [...] 2022. Calcium 7.7(L) 8.5 - 10.3 mg/dL [facility] Blood 12/26/2023 10:3 2 PM EQUIPMENT MAINT TECH 12/26/2023 11:21 PM EQUIPMENT MAINT TECH us Lindsey Tyler CASE BRIEFER LAB BLOOD ORDERABLES Final Res ult Performing Organization Address City/[facility]/ZIP Co de Phone Number [facility] [place] [address] * POCT glucose (12/26/2023 7:59 PM EQUIPMENT MAINT TECH) Glucose, POC 151 70 - 199 mg/dL Blood 12/26/2023 7:59 PM EQUIPMENT MAINT TECH 12/26/2023 7:59 PM EQUIPMENT MAINT TECH Yo Ferreira MD LAB POCT ORDERABLES - DEVICE Final Result Performing Organization Address [facility] Co de Phone Number [facility] [place] [address] * (ABNORMAL) POCT glucose (12/26/2023 5:27 PM EQUIPMENT MAINT TECH) Glucose, POC 213(H) 70 - 199 mg/dL Blood 12/26/2023 5:27 PM EQUIPMENT MAINT TECH 12/26/2023 5:27 PM EQUIPMENT MAINT TECH Yo Ferreira MD LAB POCT ORDERABLES - DEVICE Final Result Performing Organization Address City/[facility] Co de Phone Number [facility] [place] [address] * (ABNORMAL) POCT glucose (12/26/2023 3:49 PM EQUIPMENT MAINT TECH) Glucose, POC 208(H) 70 - 199 mg/dL Blood 12/26/2023 3:49 PM EQUIPMENT MAINT TECH 12/26/2023 3:49 PM EQUIPMENT MAINT TECH Yo Ferreira MD LAB POCT ORDERABLES - DEVICE Final Result Performing Organization Address [facility] de Phone Number [facility] [place] [address] * POCT glucose (12/26/2023 12:05 PM EQUIPMENT MAINT TECH) Glucose, POC 158 70 - 199 mg/dL Blood 12/26/2023 12:0 5 PM EQUIPMENT MAINT TECH 12/26/2023 12:05 PM EQUIPMENT MAINT TECH Yo Ferreira MD LAB POCT ORDERABLES - DEVICE Final Result Performing Organization Address [facility] de Phone Number [facility] [place] [address] * POCT glucose (12/26/2023 8:18 AM EQUIPMENT MAINT TECH) Glucose, POC 125 70 - 199 mg/dL Blood 12/26/2023 8:18 AM EQUIPMENT MAINT TECH 12/26/2023 8:18 AM EQUIPMENT MAINT TECH Yo Ferreira MD LAB POCT ORDERABLES - DEVICE Final Result Performing Organization Address [facility] de Phone Number [facility] [place] [address] * (ABNORMAL) Lactate (12/26/2023 2:45 AM EQUIPMENT MAINT TECH) Lactate 2.2(H) 0.7 - 2.0 mmol/L Blood 12/26/2023 2:45 AM EQUIPMENT MAINT TECH 12/26/2023 3:17 AM EQUIPMENT MAINT TECH Narrative [facility] - 12/26/2023 4:18 AM EQUIPMENT MAINT TECH To be drawn after prbc administration us Yo Ferreira MD LAB BLOOD ORDERABLES Final R esult [facility] [place] [address] * (ABNORMAL) CBC without differential (12/26/2023 2:45 AM EQUIPMENT MAINT TECH) [facility] WBC 13.4(H) 3.8 - 9.9 K/cumm Hgb 7.4(L) 11.9 - 15.5 g/dL [facility] Hct 24.2(L) 35.6 - 45.5 % [facility] Plt 285 150 - 400 K/cumm [facility] MPV 9.7 9.1 - 12.3 fL [facility] RBC 2.77(L) 3.90 - 5.20 M/cumm [facility] MCV 87.4 81.3 - 96.4 fL [facility] MCH 26.7(L) 27.1 - 33.3 pg [facility] MCHC 30.6(L) 32.3 - 35.7 g/dL [facility] RDW CV 17.2(H) 11.1 - 14.9 % [facility] RDW SD 55.9(H) 35.7 - 48.1 fL [facility] NRBC abs 0.00 0.00 - 0.01 K/cumm [facility] Blood 12/26/2023 2:45 AM EQUIPMENT MAINT TECH 12/26/2023 3:17 AM EQUIPMENT MAINT TECH Narrative [facility] - 12/26/2023 4:08 AM EQUIPMENT MAINT TECH 1 hour after transfusion of red blood cells is complete us Yo Ferreira MD LAB BLOOD ORDERABLES Final R esult Performing Organization Address [facility]/ZIP Co de Phone Number [facility] [place] [address] * Transfuse RBC (12/26/2023 12:57 AM EQUIPMENT MAINT TECH) Blood us Yo Ferreira MD BLOOD TRANSFUSION ORDERABLES Final Result Performing Organization Address [facility] Co de Phone Number [facility] [place] [address] * Prepare RBC: 1 Units (12/25/2023 10:25 PM EQUIPMENT MAINT TECH) [facility] Product code [id number] Unit Number [id number] [facility] Product Blood Type OPOS [facility] Dispense Status PRESUMED TRANSFUSED [facility] Blood 12/25/2023 10:2 5 PM EQUIPMENT MAINT TECH 12/25/2023 10:29 PM EQUIPMENT MAINT TECH Narrative [facility] - 12/26/2023 8:00 AM EQUIPMENT MAINT TECH Are special requirements needed? (All products are leukoreduced and CMV- safe)- >No Date required:-[id number] LRRBC # of [id number] Reasons:-Hgb <7 g/dL} us Yo Ferreira MD BLOOD BANK PRODUCT ORDERABLE S Final Result Performing Organization Address City/[facility] Co de Phone Number [facility] [place] [address] * (ABNORMAL) eGFR (12/25/2023 8:46 PM EQUIPMENT MAINT TECH) [facility] eGFR 58(L) >=60 mL/min/1. 73 m2 Comment: [...] last reviewed 2020. Blood 12/25/2023 8:46 PM EQUIPMENT MAINT TECH 12/25/2023 10:01 PM EQUIPMENT MAINT TECH us Parmjit Meehan MD LAB BLOOD ORDERABLES Final Resul t [facility] [place] [address] * (ABNORMAL) CBC without differential (12/25/2023 8:46 PM EQUIPMENT MAINT TECH) WBC 11.1(H) 3.8 - 9.9 K/cumm Hgb 6.4(C) 11.9 - 15.5 g/dL [facility] Comment:Critical result call ed to and read back by KATY GONSALEZ RN on 12 25 2023 at 2221 to Queta Garcia. Hct 21.2(L) 35.6 - 45.5 % [facility] Plt 314 150 - 400 K/cumm [facility] MPV 9.5 9.1 - 12.3 fL [facility] RBC 2.43(L) 3.90 - 5.20 M/cumm [facility] MCV 87.2 81.3 - 96.4 fL [facility] MCH 26.3(L) 27.1 - 33.3 pg [facility] MCHC 30.2(L) 32.3 - 35.7 g/dL [facility] RDW CV 17.6(H) 11.1 - 14.9 % [facility] RDW SD 56.3(H) 35.7 - 48.1 fL [facility] NRBC abs 0.00 0.00 - 0.01 K/cumm [facility] Blood 12/25/2023 8:46 PM EQUIPMENT MAINT TECH 12/25/2023 10:01 PM EQUIPMENT MAINT TECH Narrative [facility] - 12/25/2023 10:22 PM EQUIPMENT MAINT TECH Obtain POD 1 at 2200. Parmjit Meehan MD LAB BLOOD ORDERABLES Final Resul t Performing Organization Address [facility] Co de Phone Number [facility] [place] [address] * (ABNORMAL) Hepatic function panel (12/25/2023 8:46 PM EQUIPMENT MAINT TECH) Bilirubin, total <0.2 0.1 - 1.2 mg/dL Bilirubin, direct <0.2 0.1 - 0.3 mg/dL [facility] Protein, pl 5.2(L) 6.5 - 8.5 g/dL [facility] Albumin 2.1(L) 3.5 - 5.0 g/dL [facility] Alk phos 67 40 - 130 Units/L [facility] ALT 9 7 - 45 Units/L [facility] AST 17 10 - 45 Units/L [facility] Blood 12/25/2023 8:46 PM EQUIPMENT MAINT TECH 12/25/2023 10:01 PM EQUIPMENT MAINT TECH Yo Ferreira MD LAB BLOOD ORDERABLES Final R esult Performing Organization Address City/[facility]/ZIP Co de Phone Number [facility] [place] [address] * (ABNORMAL) Basic metabolic panel (12/25/2023 8:46 PM EQUIPMENT MAINT TECH) Sodium 133(L) 135 - 145 mmol/L Potassium, pl 3.9 3.3 - 4.9 mmol/L [facility] Chloride 99 97 - 110 mmol/L [facility] CO2 24 22 - 32 mmol/L [facility] Anion gap 10 2 - 15 mmol/L [facility] BUN 20 6 - 25 mg/dL [facility] Creatinine 1.07 0.60 - 1.10 mg/dL [facility] Glucose 171 70 - 199 mg/dL [facility] Comment: Interpretive Data Fasting glucose >/= 126 [...] 2022. Calcium 7.8(L) 8.5 - 10.3 mg/dL [facility] Blood 12/25/2023 8:46 PM EQUIPMENT MAINT TECH 12/25/2023 10:01 PM EQUIPMENT MAINT TECH Narrative [facility] - 12/25/2023 11:46 PM EQUIPMENT MAINT TECH Obtain POD 1 at 2200. us Parmjit Meehan MD LAB BLOOD ORDERABLES Final Resul t Performing Organization Address City/[facility]/ZIP Co de Phone Number [facility] [place] [address] * POCT glucose (12/25/2023 8:39 PM EQUIPMENT MAINT TECH) [facility] Glucose, POC 193 70 - 199 mg/dL Blood 12/25/2023 8:39 PM EQUIPMENT MAINT TECH 12/25/2023 8:39 PM EQUIPMENT MAINT TECH us Yo Ferreira MD LAB POCT ORDERABLES - DEVICE Final Result Performing Organization Address City/[facility]/ZIP Co de Phone Number [facility] [place] [address] * POCT glucose (12/25/2023 4:57 PM EQUIPMENT MAINT TECH) Glucose, POC 194 70 - 199 mg/dL Blood 12/25/2023 4:57 PM EQUIPMENT MAINT TECH 12/25/2023 4:57 PM EQUIPMENT MAINT TECH us Yo Ferreira MD LAB POCT ORDERABLES - DEVICE Final Result Performing Organization Address City/State/ZIP Co pr Phone Number GO [facility] [place] [address] * CT Chest W Contrast (12/25/2023 4:34 PM EQUIPMENT MAINT TECH) Anatomical Region Laterality Modality Body N/A Computed Tomogra phy 12/25/2023 5:14 PM EQUIPMENT MAINT TECH Impressions 12/25/2023 5:15 PM EQUIPMENT MAINT TECH Interval resolution of left upper and lower lobe cavitary nodular consolidations with residual atelectasis. ??Small bilateral pleural effusions. Dictated by: aKty Coyne MD The radiology attending physician has personally reviewed this study, and had reviewed and/or edited this written report and agrees with it. Electronically signed by: Brad Greene M.D. Narrative 12/25/2023 5:15 PM EQUIPMENT MAINT TECH EXAMINATION: ??Computed tomography of the chest and [...] lt * POCT glucose (12/25/2023 2:12 PM EQUIPMENT MAINT TECH) Glucose, POC 159 70 - 199 mg/dL Blood 12/25/2023 2:12 PM EQUIPMENT MAINT TECH 12/25/2023 2:12 PM EQUIPMENT MAINT TECH Yo Ferreira MD LAB POCT ORDERABLES - DEVICE Final Result [facility] [place] [address] * POCT glucose (12/25/2023 11:56 AM EQUIPMENT MAINT TECH) Glucose, POC 191 70 - 199 mg/dL Blood 12/25/2023 11:5 6 AM EQUIPMENT MAINT TECH 12/25/2023 11:56 AM EQUIPMENT MAINT TECH Result [facility] Yo Ferreira MD LAB POCT ORDERABLES - DEVICE Final Result Performing Organization Address [facility] de Phone Number GO [facility] [place] [address] * Infection Prevention Angie auris PCR, surveillance Axilla/Groin (12/25/2023 10:27 AM EQUIPMENT MAINT TECH) [facility] Angie auris DNA Not Detected Not Detected [facility] Comment: Interpretive Data Testing performed by [facility] Infectious Disease [facility] using the [employer] MDX Angie auris assay. ??This assay detects DNA from Angie auris using Real-Time PCR. ??This assay is laboratory developed and is not cleared by the [facility] Food and Drug Administration. ??The performance characteristics have been verified by the [facility]ious Disease [facility]. Interpretive data was last reviewed on 06/11/2023 Axilla/Groin 12/25/2023 10:2 7 AM EQUIPMENT MAINT TECH 12/25/2023 10:47 AM EQUIPMENT MAINT TECH Familia So MD LAB MICROBIOLOGY - GENERAL OR DERABLES Final Result Performing Organization Address City/[facility] Co de Phone Number [facility] [place] [address] [facility] * POCT glucose (12/25/2023 8:45 AM EQUIPMENT MAINT TECH) Glucose, POC 134 70 - 199 mg/dL Blood 12/25/2023 8:45 AM EQUIPMENT MAINT TECH 12/25/2023 8:45 AM EQUIPMENT MAINT TECH Result [facility] Yo Ferreira MD LAB POCT ORDERABLES - DEVICE Final Result Performing Organization Address [facility] Co de Phone Number [facility] [place] [address] * eGFR (12/24/2023 9:58 PM EQUIPMENT MAINT TECH) eGFR 75 >=60 mL/min/1. 73 m2 Comment: [...] last reviewed 2020. Blood 12/24/2023 9:58 PM EQUIPMENT MAINT TECH 12/24/2023 11:10 PM EQUIPMENT MAINT TECH Parmjit Meehan MD LAB BLOOD ORDERABLES Final Resul t Performing Organization Address [facility] Co de Phone Number GO [facility] [place] [address] * (ABNORMAL) CBC without differential (12/24/2023 9:58 PM EQUIPMENT MAINT TECH) WBC 17.3(H) 3.8 - 9.9 K/cumm Hgb 8.3(L) 11.9 - 15.5 g/dL [facility] Hct 27.3(L) 35.6 - 45.5 % [facility] Plt 336 150 - 400 K/cumm [facility] MPV 10.2 9.1 - 12.3 fL [facility] RBC 3.17(L) 3.90 - 5.20 M/cumm [facility] MCV 86.1 81.3 - 96.4 fL [facility] MCH 26.2(L) 27.1 - 33.3 pg [facility] MCHC 30.4(L) 32.3 - 35.7 g/dL [facility] RDW CV 17.8(H) 11.1 - 14.9 % [facility] RDW SD 56.6(H) 35.7 - 48.1 fL [facility] NRBC abs 0.00 0.00 - 0.01 K/cumm [facility] Blood 12/24/2023 9:58 PM EQUIPMENT MAINT TECH 12/24/2023 11:09 PM EQUIPMENT MAINT TECH Narrative [facility] - 12/24/2023 11:18 PM EQUIPMENT MAINT TECH Obtain POD 0 at 2200. us Parmjit Meehan MD LAB BLOOD ORDERABLES Final Resul t [facility] [place] [address] * Basic metabolic panel (12/24/2023 9:58 PM EQUIPMENT MAINT TECH) [facility] Sodium 138 135 - 145 mmol/L Potassium, pl 4.1 3.3 - 4.9 mmol/L [facility] Chloride 101 97 - 110 mmol/L [facility] CO2 26 22 - 32 mmol/L [facility] Anion gap 11 2 - 15 mmol/L [facility] BUN 16 6 - 25 mg/dL [facility] Creatinine 0.86 0.60 - 1.10 mg/dL [facility] Glucose 180 70 - 199 mg/dL [facility] Comment: Interpretive Data Fasting glucose >/= 126 [...] 2022. Calcium 8.7 8.5 - 10.3 mg/dL [facility] Blood 12/24/2023 9:58 PM EQUIPMENT MAINT TECH 12/24/2023 11:10 PM EQUIPMENT MAINT TECH Narrative [facility] - 12/24/2023 11:38 PM EQUIPMENT MAINT TECH Obtain POD 0 at 2200. us Parmjit Meehan MD LAB BLOOD ORDERABLES Final Resul t Performing Organization Address City/[facility]/ZIP Co de Phone Number [facility] [place] [address] * (ABNORMAL) POCT glucose (12/24/2023 8:41 PM EQUIPMENT MAINT TECH) Glucose, POC 201(H) 70 - 199 mg/dL Comment:Glu2: RN/MD Notified Glucose comment 1 Glu2: RN/MD Notified [facility] Blood 12/24/2023 8:41 PM EQUIPMENT MAINT TECH 12/24/2023 8:41 PM EQUIPMENT MAINT TECH us Yo Ferreira MD LAB POCT ORDERABLES - DEVICE Final Result [facility] [place] [address] * POCT glucose (12/24/2023 6:04 PM EQUIPMENT MAINT TECH) Glucose, POC 189 70 - 199 mg/dL Blood 12/24/2023 6:04 PM EQUIPMENT MAINT TECH 12/24/2023 6:04 PM EQUIPMENT MAINT TECH us Parmjit Meehan MD LAB POCT ORDERABLES - DEVICE Fin al Result [facility] [place] [address] * (ABNORMAL) POC Blood Gas and Chemistries, Arterial - (12/24/2023 4:47 PM EQUIPMENT MAINT TECH) pH, Art POC 7.40 7.35 - 7.45 pCO2, Art POC 38 35 - 45 mmHg [facility] pO2, Art POC 79(L) 83 - 108 mmHg [facility] Na, POC 134(L) 135 - 145 mmol/L [facility] K POC 3.4 3.3 - 4.9 mmol/L [facility] Comment: Interpretive Data Not all point of care methods assess for hemolysis. Confirm with instrument and retest K+ if not consistent with clinical signs and symptoms. Current Interpretive Data was last revised on 2023. Cl, POC 104 97 - 110 mmol/L [facility] Ionized Ca, POC 5.03 4.50 - 5.10 mg/dL [facility] Glucose, POC 180 70 - 199 mg/dL [facility] Lactate, POC 1.2 0.7 - 2.2 mmol/L [facility] SO2 (donna) arterial 96(H) 90 - 95 % [facility] Base excess, POC -1.1 mmol/L [facility] HCO3, Art POC 24 20 - 30 mmol/L [facility] Hct, POC 27.0(L) 36.3 - 45.3 % [facility] Total Hb, POC 9.0(L) 11.9 - 15.5 g/dL [facility] Blood 12/24/2023 4:47 PM EQUIPMENT MAINT TECH 12/24/2023 4:47 PM EQUIPMENT MAINT TECH us Yo Ferreira MD LAB POCT ORDERABLES - DEVICE Final Result [facility] [place] [address] * POCT glucose (12/24/2023 4:07 PM EQUIPMENT MAINT TECH) Glucose, POC 124 70 - 199 mg/dL Blood 12/24/2023 4:07 PM EQUIPMENT MAINT TECH 12/24/2023 4:07 PM EQUIPMENT MAINT TECH us Parmjit Meehan MD LAB POCT ORDERABLES - DEVICE Fin al Result [facility] [place] [address] * (ABNORMAL) POC Blood Gas and Chemistries, Arterial - (12/24/2023 3:22 PM EQUIPMENT MAINT TECH) pH, Art POC 7.41 7.35 - 7.45 pCO2, Art POC 39 35 - 45 mmHg [facility] pO2, Art POC 191(H) 83 - 108 mmHg [facility] Na, POC 134(L) 135 - 145 mmol/L [facility] K POC 3.1(L) 3.3 - 4.9 mmol/L [facility] Comment: Interpretive Data Not all point of care methods assess for hemolysis. Confirm with instrument and retest K+ if not consistent with clinical signs and symptoms. Current Interpretive Data was last revised on 2023. Cl, POC 103 97 - 110 mmol/L [facility] Ionized Ca, POC 5.36(H) 4.50 - 5.10 mg/dL [facility] Glucose, POC 161 70 - 199 mg/dL [facility] Lactate, POC 1.2 0.7 - 2.2 mmol/L [facility] SO2 (donna) arterial 98(H) 90 - 95 % [facility] Base excess, POC 0.1 mmol/L [facility] HCO3, Art POC 25 20 - 30 mmol/L [facility] Hct, POC 25.0(L) 36.3 - 45.3 % [facility] Total Hb, POC 8.2(L) 11.9 - 15.5 g/dL [facility] Blood 12/24/2023 3:22 PM EQUIPMENT MAINT TECH 12/24/2023 3:22 PM EQUIPMENT MAINT TECH us Parmjit Meehan MD LAB POCT ORDERABLES - DEVICE Fin al Result [facility] [place] [address] * (ABNORMAL) Tissue aerobic and anaerobic culture and gram stain Tissue Colon (12/24/2023 3:00 PM EQUIPMENT MAINT TECH) Direct Specimen Exam Stain: Few polymorphonuclear leukocytes [...] contact infectious diseases. Few Mixed microorganisms. (.) [facility] Organism ENTEROCOCCUS FAECIUM [facility] Organism KLEBSIELLA PNEUMONIAE [facility] Organism MIXED MICROORGANISMS. [facility] Tissue (Colon) 12/24/2023 3: 00 PM EQUIPMENT MAINT TECH 12/24/2023 4:56 PM EQUIPMENT MAINT TECH Narrative [facility] - 01/05/2024 3:05 PM EQUIPMENT MAINT TECH Left colon Testing performed by [facility] ([phone]) Specimens submitted from normally sterile body sites [...] O RDERABLES Final Result Performing Organization Address City/[facility] Co de Phone Number [facility] [place] [address] * Mycology (fungal) culture and stain Tissue Colon (12/24/2023 3:00 PM EQUIPMENT MAINT TECH) Pathologist [facility] Direct Specimen Exam Stain: No Fungal elements seen. Report Final Report: No growth of fungus [facility] Tissue (Colon) 12/24/2023 3: 00 PM EQUIPMENT MAINT TECH 12/24/2023 4:57 PM EQUIPMENT MAINT TECH Narrative [facility] - 01/21/2024 7:59 AM EQUIPMENT MAINT TECH Left colon Testing performed by [facility] ([phone]). Yo Ferreira MD LAB MICROBIOLOGY - GENERAL O RDERABLES Final Result Performing Organization Address [facility] Co de Phone Number [facility] [place] [address] * (ABNORMAL) POC Blood Gas and Chemistries, Arterial - (12/24/2023 1:47 PM EQUIPMENT MAINT TECH) Pathologist [facility] pH, Art POC 7.44 7.35 - 7.45 pCO2, Art POC 40 35 - 45 mmHg [facility] pO2, Art POC 156(H) 83 - 108 mmHg [facility] Na, POC 134(L) 135 - 145 mmol/L [facility] K POC 3.5 3.3 - 4.9 mmol/L [facility] Comment: Interpretive Data Not all point of care methods assess for hemolysis. Confirm with instrument and retest K+ if not consistent with clinical signs and symptoms. Current Interpretive Data was last revised on 2023. Cl, POC 101 97 - 110 mmol/L [facility] Ionized Ca, POC 4.75 4.50 - 5.10 mg/dL [facility] Glucose, POC 142 70 - 199 mg/dL [facility] Lactate, POC 0.9 0.7 - 2.2 mmol/L [facility] SO2 (donna) arterial 99(H) 90 - 95 % [facility] Base excess, POC 2.8 mmol/L [facility] HCO3, Art POC 27 20 - 30 mmol/L [facility] Hct, POC 28.0(L) 36.3 - 45.3 % [facility] Total Hb, POC 9.3(L) 11.9 - 15.5 g/dL [facility] Blood 12/24/2023 1:47 PM EQUIPMENT MAINT TECH 12/24/2023 1:47 PM EQUIPMENT MAINT TECH us Parmjit Meehan MD LAB POCT ORDERABLES - DEVICE Fin al Result [facility] [place] [address] * [place] AN PROCEDURE PLACEHOLDER (12/24/2023 1:38 PM EQUIPMENT MAINT TECH) Narrative Gin Daniels CRNA - 12/24/2023 1:38 PM EQUIPMENT MAINT TECH Gin Daniels CRNA ? 12/24/2023 ??1:39 PM Arterial Line Patient location: OR Indication: continuous blood pressure monitoring and blood sampling needed Staff: Placed by: MATTHEW: Gin Daniels CRNA Procedure prep: Prep solution: [...] MD ANESTHESIA ORDERABLE S Final Result * [place] AN ELECTIVE ENDOTRACHEAL AIRWAY, [place] AN PROCEDURE PLACEHOLDER (12/24/2023 1:37 PM EQUIPMENT MAINT TECH) Narrative Gin Daniels CRNA - 12/24/2023 1:37 PM EQUIPMENT MAINT TECH Gin Daniels CRNA ? 12/24/2023 ??1:38 PM Airway Patient location: OR Urgency: elective Indications for airway management: anesthesia Difficult airway: no Staff: Supervising provider: Joya Dennis MD Placed by: LITHOGRAPHIC ETCHER: Gin Daniels CRNA Emergent airway documentation: Risks [...] Result * Surgical pathology (12/24/2023 12:57 PM EQUIPMENT MAINT TECH) Ovary(ies) with or without tube, tumor 12/24/2023 12:57 PM EQUIPMENT MAINT TECH 12/24/2023 1:09 PM EQUIPMENT MAINT TECH Narrative 01/05/2024 5:27 PM EQUIPMENT MAINT TECH EPIC results best viewed via link to PDF [facility] [place] [address] Note to Patients: This report may contain [...] Gender: ??F : ??1960 (Age: 63) Address: ??[address] [place] [address] ??[id number] Hospital #: ??[id number] Taken:12/24/2023 Received:12/24/2023 Reported: 01/05/2024 Patient Type: [facility] Inpatient ?? Service: Medical Location: [place] [address] Physician(s): ??Yo Ferreira M.D. Kaushal Heath M.D. [...] Mucinous cystadenoma By Narcisa Phan MS, PA ([facility])Kerwin HOYOS M.D., Rip Lott M.D. Gross Consultation A: Left tube & ovary Received fresh is a 1,608 g, 18.0 x 16.0 x 7.5 cm ovary and 10.5 x 0.7 cm fallopian tube. The specimen is intact, smooth, and without any gross external lesions. The specimen is opened to reveal a large, multiloculated cyst with copious amount of mucinous fluid. Soil Conservation Technician sections are frozen as AFR1. By Narcisa Phan MS, PA ([facility])Kerwin HOYOS M.D., Rip Lott M.D. I personally [...] A2 Fallopian tube with bisected fimbriae A3-A8 Soil Conservation Technician cyst wall, three per cassette Jar 4. [...] Surgical Pathology and Flow Cytometry Departments at [facility] as part of an ongoing quality assurance supervisor trim program and in compliance with federally mandated [...] Surgical Pathology and Flow Cytometry Departments of [facility]. ??It has not been cleared or approved by the [place]. S. Food and Drug Administration. IMAGES AND SCANNED DOCUMENTS, IF INCLUDED, ONLY VIEWABLE IN PDF VERSION OF REPORT us Yo Ferreira MD LAB PATHOLOGY ORDERABLES Fin al Result * Cytology (12/24/2023 12:49 PM EQUIPMENT MAINT TECH) Pelvis (Cytology) 12/24/2023 12:49 PM EQUIPMENT MAINT TECH 12/24/2023 4:58 PM EQUIPMENT MAINT TECH Narrative 12/25/2023 3:06 PM EQUIPMENT MAINT TECH EPIC results best viewed via link to PDF [facility]en Vickers [facility] [place], [place] [id number] Note to Patients: This report may contain [...] Gender: ??F : ??1960 (Age: 63) Address: ??[address] [place] [address] ??[id number] Hospital #: ??[id number] Taken:12/24/2023 Received:12/24/2023 Reported: 12/25/2023 Patient Type: [facility] Inpatient ?? Service: FIELD OPERATIONS TECHNICIAN Location: [facility] [address] Physician(s): ??Yo Ferreira M.D. Kaushal Heath M.D. [...] Surgical Pathology and Flow Cytometry Departments at [facility] as part of an ongoing quality assurance supervisor trim program and in compliance with federally mandated [...] Surgical Pathology and Flow Cytometry Departments of [facility]. ??It has not been cleared or approved by the U. S. Food and Drug Administration. Yo Ferreira MD LAB CYTOLOGY ORDERABLES Samantha l Result * Type and screen (12/24/2023 11:13 AM EQUIPMENT MAINT TECH) ABO Rh O Positive Maira, indirect Negative [facility] Blood 12/24/2023 11:1 3 AM EQUIPMENT MAINT TECH 12/24/2023 11:21 AM EQUIPMENT MAINT TECH Narrative [facility] - 12/24/2023 12:48 PM EQUIPMENT MAINT TECH Has the patient had Daratumumab or Isatuximab in the past 6 months?->Unknown Chris Ricci NP LAB BLOOD BANK TEST ORDERA BLES Final Result [facility] [place] [address] * (ABNORMAL) POC Blood Gas and Chemistries, Venous - (12/24/2023 11:09 AM EQUIPMENT MAINT TECH) pH, Geovani POC 7.48(H) 7.32 - 7.43 pCO2, geovani POC 41 40 - 50 mmHg [facility] pO2, geovani POC 48 mmHg [facility] Na, POC 136 135 - 145 mmol/L [facility] K POC 3.4 3.3 - 4.9 mmol/L [facility] Comment: Interpretive Data Not all point of care methods assess for hemolysis. Confirm with instrument and retest K+ if not consistent with clinical signs and symptoms. Current Interpretive Data was last revised on 2023. Cl, POC 101 97 - 110 mmol/L [facility] Ionized Ca, POC 4.66 4.50 - 5.10 mg/dL [facility] Glucose, POC 113 70 - 199 mg/dL [facility] Lactate, POC 0.9 0.7 - 2.2 mmol/L [facility] O2 Sat, Geovani POC (Donna) 76 % [facility] Base excess, POC 6.4 mmol/L [facility] HCO3, Geovani POC 30 20 - 30 mmol/L [facility] Hct, POC 26.0(L) 36.3 - 45.3 % [facility] Total Hb, POC 8.8(L) 11.9 - 15.5 g/dL [facility] Blood 12/24/2023 11:0 9 AM EQUIPMENT MAINT TECH 12/24/2023 11:09 AM EQUIPMENT MAINT TECH us Parmjit Meehan MD LAB POCT ORDERABLES - DEVICE Fin al Result [facility] [place] [address] * eGFR (12/22/2023 9:36 PM EQUIPMENT MAINT TECH) eGFR 84 >=60 mL/min/1. 73 m2 Comment: [...] last reviewed 2020. Blood 12/22/2023 9:36 PM EQUIPMENT MAINT TECH 12/22/2023 9:52 PM EQUIPMENT MAINT TECH us Parmjit Meehan MD LAB BLOOD ORDERABLES Final Resul t [facility] [place] [address] * (ABNORMAL) Differential, auto (12/22/2023 9:36 PM EQUIPMENT MAINT TECH) Neutrophil abs 9.3(H) 1.5 - 6.5 K/cumm Imm gran abs 0.1 0.0 - 0.1 K/cumm [facility] Lymphocyte abs 2.2 0.8 - 3.3 K/cumm [facility] Monocyte abs 1.3(H) 0.2 - 0.8 K/cumm [facility] Eosinophil abs 0.2 0.0 - 0.5 K/cumm [facility] Basophil abs 0.1 0.0 - 0.1 K/cumm [facility] Neutrophil pct 71.3 % [facility] Comment: Interpretive Data Percent cell count reference ranges are not reported, since discordance with absolute values may lead to misinterpretation of CBC data. Current Interpretive Data was last revised on 2017. Imm gran pct 0.5 % [facility] Comment: Interpretive Data Percent cell count reference ranges are not reported, since discordance with absolute values may lead to misinterpretation of CBC data. Current Interpretive Data was last revised on 2017. Lymphocyte pct 16.6 % [facility] Comment: Interpretive Data Percent cell count reference ranges are not reported, since discordance with absolute values may lead to misinterpretation of CBC data. Current Interpretive Data was last revised on 2017. Monocyte pct 9.6 % [facility] Comment: Interpretive Data Percent cell count reference ranges are not reported, since discordance with absolute values may lead to misinterpretation of CBC data. Current Interpretive Data was last revised on 2017. Eosinophil pct 1.5 % [facility] Comment: Interpretive Data Percent cell count reference ranges are not reported, since discordance with absolute values may lead to misinterpretation of CBC data. Current Interpretive Data was last revised on 2017. Basophil pct 0.5 % [facility] Comment: Interpretive Data Percent cell count reference ranges are not reported, since discordance with absolute values may lead to misinterpretation of CBC data. Current Interpretive Data was last revised on 2017. Blood 12/22/2023 9:36 PM EQUIPMENT MAINT TECH 12/22/2023 10:01 PM EQUIPMENT MAINT TECH Parmjit Meehan MD LAB BLOOD ORDERABLES Final Resul t Performing Organization Address [facility] Co de Phone Number [facility] [place] [address] * (ABNORMAL) CBC with auto differential (12/22/2023 9:36 PM EQUIPMENT MAINT TECH) WBC 13.1(H) 3.8 - 9.9 K/cumm Hgb 8.5(L) 11.9 - 15.5 g/dL [facility] Hct 27.2(L) 35.6 - 45.5 % [facility] Plt 395 150 - 400 K/cumm [facility] MPV 9.4 9.1 - 12.3 fL [facility] RBC 3.20(L) 3.90 - 5.20 M/cumm [facility] MCV 85.0 81.3 - 96.4 fL [facility] MCH 26.6(L) 27.1 - 33.3 pg [facility] MCHC 31.3(L) 32.3 - 35.7 g/dL [facility] RDW CV 18.6(H) 11.1 - 14.9 % [facility] RDW SD 57.4(H) 35.7 - 48.1 fL [facility] NRBC abs 0.00 0.00 - 0.01 K/cumm [facility] Blood 12/22/2023 9:36 PM EQUIPMENT MAINT TECH 12/22/2023 10:01 PM EQUIPMENT MAINT TECH Parmjit Meehan MD LAB BLOOD ORDERABLES Final Resul t Performing Organization Address [facility]/ZIP Co de Phone Number [facility] [place] [address] * (ABNORMAL) Protime-INR (12/22/2023 9:36 PM EQUIPMENT MAINT TECH) Pathologist [facility] PT 15.6(H) 9.7 - 13.0 sec INR 1.43(H) 0.90 - 1.20 [facility] Comment: Interpretive data Oral anticoagulant therapeutic ranges: Venous thromboembolism prophylaxis or treatment: 2.0-3.0 CARDIOLOGY Standard range: 2.0-3.0 High-intensity range: 2.5-3.5 Refer to indication-specific guidelines for appropriate target ranges for prosthetic heart valve replacement. Current interpretive data was last revised on 2019. Blood 12/22/2023 9:36 PM EQUIPMENT MAINT TECH 12/22/2023 9:50 PM EQUIPMENT MAINT TECH Parmjit Meehan MD LAB BLOOD ORDERABLES Final Resul t Performing Organization Address City/[facility]/ZIP Co de Phone Number [facility] [place] [address] * Type and screen (12/22/2023 9:36 PM EQUIPMENT MAINT TECH) Pathologist [facility] Maira, indirect Negative ABO Rh O Positive [facility] Blood 12/22/2023 9:36 PM EQUIPMENT MAINT TECH 12/22/2023 9:47 PM EQUIPMENT MAINT TECH Narrative [facility] - 12/22/2023 10:45 PM EQUIPMENT MAINT TECH Has the patient had Daratumumab or Isatuximab in the past 6 months?->Unknown Parmjit Meehan MD LAB BLOOD BANK TEST ORDERABLES F inal Result Performing Organization Address City/[facility]/[place] [address] * Magnesium (12/22/2023 9:36 PM EQUIPMENT MAINT TECH) Pathologist [facility] Magnesium 1.8 1.4 - 2.5 mg/dL Blood 12/22/2023 9:36 PM EQUIPMENT MAINT TECH 12/22/2023 9:52 PM EQUIPMENT MAINT TECH Parmjit Meehan MD LAB BLOOD ORDERABLES Final Resul t [facility] [place] [address] * (ABNORMAL) Renal function panel (12/22/2023 9:36 PM EQUIPMENT MAINT TECH) Pathologist [facility] Sodium 133(L) 135 - 145 mmol/L Potassium, pl 4.7 3.3 - 4.9 mmol/L [facility] Chloride 98 97 - 110 mmol/L [facility] CO2 24 22 - 32 mmol/L [facility] Anion gap 11 2 - 15 mmol/L [facility] BUN 22 6 - 25 mg/dL [facility] Creatinine 0.78 0.60 - 1.10 mg/dL [facility] Glucose 174 70 - 199 mg/dL [facility] Comment: Interpretive Data Fasting glucose >/= 126 [...] 2022. Calcium 8.7 8.5 - 10.3 mg/dL [facility] Phosphorus, pl 3.6 2.3 - 4.5 mg/dL [facility] Albumin 2.9(L) 3.5 - 5.0 g/dL [facility] Blood 12/22/2023 9:36 PM EQUIPMENT MAINT TECH 12/22/2023 9:52 PM EQUIPMENT MAINT TECH Parmjit Meehan MD LAB BLOOD ORDERABLES Final Resul t [facility] [place] [address] * Infection Prevention Angie auris PCR, surveillance Axilla/Groin (12/21/2023 9:32 PM EQUIPMENT MAINT TECH) Pathologist [facility] Angie auris DNA Not Detected Not Detected [facility] Comment: Interpretive Data Testing performed by [facility] Molecular Infectious Disease Laboratory using the the[employer] MDX Angie auris assay. ??This assay detects DNA from Angie auris using Real-Time PCR. ??This assay is laboratory developed and is not cleared by the [place] Food and Drug Administration. ??The performance characteristics have been verified by the [facility] Molecular Infectious Disease Laboratory. Interpretive data was last reviewed on 06/11/2023 Axilla/Groin 12/21/2023 9:32 PM EQUIPMENT MAINT TECH 12/21/2023 10:06 PM EQUIPMENT MAINT TECH Familia So MD LAB MICROBIOLOGY - GENERAL OR DERABLES Final Result [facility] [place] [address] [facility] * eGFR (12/19/2023 10:29 PM CDT) Pathologist [facility] eGFR >90 >=60 mL/min/1. 73 m2 Comment: [...] Radford MD LAB BLOOD ORDERABLES Final Result [facility] [place] [address] * (ABNORMAL) Differential, auto (12/19/2023 10:29 PM CDT) Neutrophil abs 6.7(H) 1.5 - 6.5 K/cumm Imm gran abs 0.1 0.0 - 0.1 K/cumm [facility] Lymphocyte abs 2.2 0.8 - 3.3 K/cumm [facility] Monocyte abs 1.1(H) 0.2 - 0.8 K/cumm [facility] Eosinophil abs 0.3 0.0 - 0.5 K/cumm [facility] Basophil abs 0.1 0.0 - 0.1 K/cumm [facility] Neutrophil pct 64.7 % [facility] Comment: Interpretive Data Percent cell count reference ranges are not reported, since discordance with absolute values may lead to misinterpretation of CBC data. Current Interpretive Data was last revised on 2017. Imm gran pct 0.5 % [facility] Comment: Interpretive Data Percent cell count reference ranges are not reported, since discordance with absolute values may lead to misinterpretation of CBC data. Current Interpretive Data was last revised on 2017. Lymphocyte pct 20.7 % [facility] Comment: Interpretive Data Percent cell count reference ranges are not reported, since discordance with absolute values may lead to misinterpretation of CBC data. Current Interpretive Data was last revised on 2017. Monocyte pct 10.9 % [facility] Comment: Interpretive Data Percent cell count reference ranges are not reported, since discordance with absolute values may lead to misinterpretation of CBC data. Current Interpretive Data was last revised on 2017. Eosinophil pct 2.6 % [facility] Comment: Interpretive Data Percent cell count reference ranges are not reported, since discordance with absolute values may lead to misinterpretation of CBC data. Current Interpretive Data was last revised on 2017. Basophil pct 0.6 % [facility] Comment: Interpretive Data Percent cell count reference ranges are not reported, since discordance with absolute values may lead to misinterpretation of CBC data. Current Interpretive Data was last revised on 2017. Blood 12/19/2023 10:2 9 PM CDT 12/19/2023 11:03 PM CDT us Álvaro Radford MD LAB BLOOD ORDERABLES Final Result [facility] [place] [address] * (ABNORMAL) CBC with auto differential (12/19/2023 10:29 PM CDT) WBC 10.4(H) 3.8 - 9.9 K/cumm Hgb 7.7(L) 11.9 - 15.5 g/dL [facility] Hct 25.3(L) 35.6 - 45.5 % [facility] Plt 337 150 - 400 K/cumm [facility] MPV 9.8 9.1 - 12.3 fL [facility] RBC 2.93(L) 3.90 - 5.20 M/cumm [facility] MCV 86.3 81.3 - 96.4 fL [facility] MCH 26.3(L) 27.1 - 33.3 pg [facility] MCHC 30.4(L) 32.3 - 35.7 g/dL [facility] RDW CV 18.9(H) 11.1 - 14.9 % [facility] RDW SD 60.0(H) 35.7 - 48.1 fL [facility] NRBC abs 0.00 0.00 - 0.01 K/cumm [facility] Blood 12/19/2023 10:2 9 PM CDT 12/19/2023 11:03 PM CDT Álvaro Radford MD LAB BLOOD ORDERABLES Final Result Performing Organization Address [facility] Co de Phone Number [facility] [place] [employer] [place] [address] * Type and screen (12/19/2023 10:29 PM CDT) ABO Rh O Positive Maira, indirect Negative [facility] Blood 12/19/2023 10:2 9 PM CDT 12/19/2023 11:07 PM CDT Narrative [facility] - 12/20/2023 12:23 AM CDT Has the patient had Daratumumab or Isatuximab in the past 6 months?->Unknown Result [facility] Álvaro Radford MD LAB BLOOD BANK TEST ORDERAB LES Final Result Performing Organization Address [facility] Co de Phone Number [facility] [place] [address] * Magnesium (12/19/2023 10:29 PM CDT) Magnesium 1.8 1.4 - 2.5 mg/dL Blood 12/19/2023 10:2 9 PM CDT 12/19/2023 11:03 PM CDT Álvaro Radford MD LAB BLOOD ORDERABLES Final Result Performing Organization Address [facility] Co de Phone Number [facility] [place] [employer] [address] * (ABNORMAL) Renal function panel (12/19/2023 10:29 PM CDT) Pathologist [facility] Sodium 135 135 - 145 mmol/L Potassium, pl 4.6 3.3 - 4.9 mmol/L [facility] Chloride 101 97 - 110 mmol/L [facility] CO2 26 22 - 32 mmol/L [facility] Anion gap 8 2 - 15 mmol/L [facility] BUN 22 6 - 25 mg/dL [facility] Creatinine 0.73 0.60 - 1.10 mg/dL [facility] Glucose 185 70 - 199 mg/dL [facility] Comment: Interpretive Data Fasting glucose >/= 126 [...] 2022. Calcium 8.6 8.5 - 10.3 mg/dL [facility] Phosphorus, pl 3.3 2.3 - 4.5 mg/dL [facility] Albumin 2.6(L) 3.5 - 5.0 g/dL [facility] Blood 12/19/2023 10:2 9 PM CDT 12/19/2023 11:03 PM CDT us Álvaro Radford MD LAB BLOOD ORDERABLES Final Result [facility] [place] [address] * (ABNORMAL) Differential, auto (12/17/2023 8:27 PM CDT) Neutrophil abs 8.0(H) 1.5 - 6.5 K/cumm Imm gran abs 0.0 0.0 - 0.1 K/cumm [facility] Lymphocyte abs 1.7 0.8 - 3.3 K/cumm [facility] Monocyte abs 1.0(H) 0.2 - 0.8 K/cumm [facility] Eosinophil abs 0.1 0.0 - 0.5 K/cumm [facility] Basophil abs 0.1 0.0 - 0.1 K/cumm [facility] Neutrophil pct 72.9 % [facility] Comment: Interpretive Data Percent cell count reference ranges are not reported, since discordance with absolute values may lead to misinterpretation of CBC data. Current Interpretive Data was last revised on 2017. Imm gran pct 0.4 % [facility] Comment: Interpretive Data Percent cell count reference ranges are not reported, since discordance with absolute values may lead to misinterpretation of CBC data. Current Interpretive Data was last revised on 2017. Lymphocyte pct 15.5 % [facility] Comment: Interpretive Data Percent cell count reference ranges are not reported, since discordance with absolute values may lead to misinterpretation of CBC data. Current Interpretive Data was last revised on 2017. Monocyte pct 9.4 % [facility] Comment: Interpretive Data Percent cell count reference ranges are not reported, since discordance with absolute values may lead to misinterpretation of CBC data. Current Interpretive Data was last revised on 2017. Eosinophil pct 1.3 % [facility] Comment: Interpretive Data Percent cell count reference ranges are not reported, since discordance with absolute values may lead to misinterpretation of CBC data. Current Interpretive Data was last revised on 2017. Basophil pct 0.5 % [facility] Comment: Interpretive Data Percent cell count reference ranges are not reported, since discordance with absolute values may lead to misinterpretation of CBC data. Current Interpretive Data was last revised on 2017. Blood 12/17/2023 8:27 PM CDT 12/17/2023 9:02 PM CDT us Parmjit Meehan MD LAB BLOOD ORDERABLES Final Resul t [facility] [place] [address] * (ABNORMAL) CBC with auto differential (12/17/2023 8:27 PM CDT) [facility] WBC 11.0(H) 3.8 - 9.9 K/cumm Hgb 8.1(L) 11.9 - 15.5 g/dL [facility] Hct 27.4(L) 35.6 - 45.5 % [facility] Plt 334 150 - 400 K/cumm [facility] MPV 10.7 9.1 - 12.3 fL [facility] RBC 3.20(L) 3.90 - 5.20 M/cumm [facility] MCV 85.6 81.3 - 96.4 fL [facility] MCH 25.3(L) 27.1 - 33.3 pg [facility] MCHC 29.6(L) 32.3 - 35.7 g/dL [facility] RDW CV 19.2(H) 11.1 - 14.9 % [facility] RDW SD 60.4(H) 35.7 - 48.1 fL [facility] NRBC abs 0.00 0.00 - 0.01 K/cumm [facility] Blood 12/17/2023 8:27 PM CDT 12/17/2023 9:02 PM CDT us Parmjit Meehan MD LAB BLOOD ORDERABLES Final Resul t [facility] [place] [address] * eGFR (12/16/2023 10:51 PM CDT) Pathologist [facility] eGFR 87 >=60 mL/min/1. 73 m2 Comment: [...] Radford MD LAB BLOOD ORDERABLES Final Result [facility] [place] [address] * (ABNORMAL) Differential, auto (12/16/2023 10:51 PM CDT) Neutrophil abs 7.1(H) 1.5 - 6.5 K/cumm Imm gran abs 0.1 0.0 - 0.1 K/cumm [facility] Lymphocyte abs 2.3 0.8 - 3.3 K/cumm [facility] Monocyte abs 1.1(H) 0.2 - 0.8 K/cumm [facility] Eosinophil abs 0.3 0.0 - 0.5 K/cumm [facility] Basophil abs 0.1 0.0 - 0.1 K/cumm [facility] Neutrophil pct 64.9 % [facility] Comment: Interpretive Data Percent cell count reference ranges are not reported, since discordance with absolute values may lead to misinterpretation of CBC data. Current Interpretive Data was last revised on 2017. Imm gran pct 0.6 % [facility] Comment: Interpretive Data Percent cell count reference ranges are not reported, since discordance with absolute values may lead to misinterpretation of CBC data. Current Interpretive Data was last revised on 2017. Lymphocyte pct 21.5 % [facility] Comment: Interpretive Data Percent cell count reference ranges are not reported, since discordance with absolute values may lead to misinterpretation of CBC data. Current Interpretive Data was last revised on 2017. Monocyte pct 9.9 % [facility] Comment: Interpretive Data Percent cell count reference ranges are not reported, since discordance with absolute values may lead to misinterpretation of CBC data. Current Interpretive Data was last revised on 2017. Eosinophil pct 2.5 % [facility] Comment: Interpretive Data Percent cell count reference ranges are not reported, since discordance with absolute values may lead to misinterpretation of CBC data. Current Interpretive Data was last revised on 2017. Basophil pct 0.6 % [facility] Comment: Interpretive Data Percent cell count reference ranges are not reported, since discordance with absolute values may lead to misinterpretation of CBC data. Current Interpretive Data was last revised on 2017. Blood 12/16/2023 10:5 1 PM CDT 12/16/2023 11:13 PM CDT us Álvaro Radford MD LAB BLOOD ORDERABLES Final Result [facility] [place] [address] * (ABNORMAL) CBC with auto differential (12/16/2023 10:51 PM CDT) WBC 10.9(H) 3.8 - 9.9 K/cumm Hgb 7.7(L) 11.9 - 15.5 g/dL [facility] Hct 25.8(L) 35.6 - 45.5 % [facility] Plt 347 150 - 400 K/cumm [facility] MPV 10.1 9.1 - 12.3 fL [facility] RBC 3.00(L) 3.90 - 5.20 M/cumm [facility] MCV 86.0 81.3 - 96.4 fL [facility] MCH 25.7(L) 27.1 - 33.3 pg [facility] MCHC 29.8(L) 32.3 - 35.7 g/dL [facility] RDW CV 19.5(H) 11.1 - 14.9 % [facility] RDW SD 61.1(H) 35.7 - 48.1 fL [facility] NRBC abs 0.00 0.00 - 0.01 K/cumm [facility] Blood 12/16/2023 10:5 1 PM CDT 12/16/2023 11:13 PM CDT Álvaro Radford MD LAB BLOOD ORDERABLES Final Result Performing Organization Address [facility] Co de Phone Number [facility] [place] [employer] [place] [address] * Type and screen (12/16/2023 10:51 PM CDT) ABO Rh O Positive Maira, indirect Negative [facility] Blood 12/16/2023 10:5 1 PM CDT 12/16/2023 11:07 PM CDT Narrative [facility] - 12/17/2023 12:31 AM CDT Has the patient had Daratumumab or Isatuximab in the past 6 months?->Unknown Álvaro Radford MD LAB BLOOD BANK TEST ORDERAB LES Final Result Performing Organization Address [facility]/ZIP Co de Phone Number [facility] [place] [address] * Magnesium (12/16/2023 10:51 PM CDT) Magnesium 1.7 1.4 - 2.5 mg/dL Blood 12/16/2023 10:5 1 PM CDT 12/16/2023 11:11 PM CDT Álvaro Radford MD LAB BLOOD ORDERABLES Final Result [facility] [place] [address] * (ABNORMAL) Renal function panel (12/16/2023 10:51 PM CDT) Pathologist [facility] Sodium 135 135 - 145 mmol/L Potassium, pl 4.6 3.3 - 4.9 mmol/L [facility] Chloride 101 97 - 110 mmol/L [facility] CO2 28 22 - 32 mmol/L [facility] Anion gap 6 2 - 15 mmol/L [facility] BUN 21 6 - 25 mg/dL [facility] Creatinine 0.76 0.60 - 1.10 mg/dL [facility] Glucose 139 70 - 199 mg/dL [facility] Comment: Interpretive Data Fasting glucose >/= 126 [...] 2022. Calcium 8.4(L) 8.5 - 10.3 mg/dL [facility] Phosphorus, pl 3.3 2.3 - 4.5 mg/dL [facility] Albumin 2.8(L) 3.5 - 5.0 g/dL [facility] Blood 12/16/2023 10:5 1 PM CDT 12/16/2023 11:11 PM CDT Álvaro Radford MD LAB BLOOD ORDERABLES Final Result [facility] [place] [address] * POCT glucose (12/16/2023 8:38 PM CDT) Glucose, POC 192 70 - 199 mg/dL Blood 12/16/2023 8:38 PM CDT 12/16/2023 8:38 PM CDT Parmjit Meehan MD LAB POCT ORDERABLES - DEVICE Fin al Result Performing Organization Address City/[facility] Co de Phone Number [facility] [place] [address] * POCT glucose (12/16/2023 4:34 PM CDT) Glucose, POC 164 70 - 199 mg/dL Blood 12/16/2023 4:34 PM CDT 12/16/2023 4:34 PM CDT Parmjit Meehan MD LAB POCT ORDERABLES - DEVICE Fin al Result Performing Organization Address [facility] Co de Phone Number [facility] [place] [address] * POCT glucose (12/16/2023 11:53 AM CDT) Glucose, POC 188 70 - 199 mg/dL Blood 12/16/2023 11:5 3 AM CDT 12/16/2023 11:53 AM CDT us Parmjit Meehan MD LAB POCT ORDERABLES - DEVICE Fin al Result Performing Organization Address [facility] Co de Phone Number [facility] [place] [address] * POCT glucose (12/16/2023 8:13 AM CDT) Glucose, POC 127 70 - 199 mg/dL Blood 12/16/2023 8:13 AM CDT 12/16/2023 8:13 AM CDT us Parmjit Meehan MD LAB POCT ORDERABLES - DEVICE Fin al Result Performing Organization Address [facility] Co de Phone Number [facility] [place] [address] * Infection Prevention Angie auris PCR, surveillance Axilla/Groin (12/15/2023 8:46 PM CDT) Angie auris DNA Not Detected Not Detected [facility] Comment: Interpretive Data Testing performed by [facility] using the [employer] MDX Angie auris assay. ??This assay detects DNA from Angie auris using Real-Time PCR. ??This assay is laboratory developed and is not cleared by the [facility] Food and Drug Administration. ??The performance characteristics have been verified by the [facility]. Interpretive data was last reviewed on 06/11/2023 Axilla/Groin 12/15/2023 8:46 PM CDT 12/15/2023 8:57 PM CDT us Familia So MD LAB MICROBIOLOGY - GENERAL OR DERABLES Final Result Performing Organization Address [facility] Co de Phone Number [facility] [place] [address] [facility] * (ABNORMAL) POCT glucose (12/15/2023 8:03 PM CDT) Glucose, POC 210(H) 70 - 199 mg/dL Blood 12/15/2023 8:03 PM CDT 12/15/2023 8:03 PM CDT us Álvaro Radford MD LAB POCT ORDERABLES - DEVIC E Final Result Performing Organization Address City/[facility]/ZIP Co de Phone Number [facility] [place] [address] * POCT glucose (12/15/2023 5:20 PM CDT) Glucose, POC 172 70 - 199 mg/dL Blood 12/15/2023 5:20 PM CDT 12/15/2023 5:20 PM CDT Álvaro Radford MD LAB POCT ORDERABLES - DEVIC E Final Result Performing Organization Address [facility] [place] [place] [address] * POCT glucose (12/15/2023 12:12 PM CDT) Glucose, POC 169 70 - 199 mg/dL Blood 12/15/2023 12:1 2 PM CDT 12/15/2023 12:12 PM CDT us Álvaro Radford MD LAB POCT ORDERABLES - DEVIC E Final Result Performing Organization Address [facility] [place] [place] [address] * POCT glucose (12/15/2023 8:11 AM CDT) Glucose, POC 129 70 - 199 mg/dL Blood 12/15/2023 8:11 AM CDT 12/15/2023 8:11 AM CDT us Álvaro Radford MD LAB POCT ORDERABLES - DEVIC E Final Result Performing Organization Address [facility] Co de Phone Number [facility] [place] [address] * POCT glucose (12/14/2023 8:37 PM CDT) Glucose, POC 124 70 - 199 mg/dL Blood 12/14/2023 8:37 PM CDT 12/14/2023 8:37 PM CDT Álvaro Radford MD LAB POCT ORDERABLES - DEVIC E Final Result Performing Organization Address [facility] Co de Phone Number [facility] [place] [address] * (ABNORMAL) POCT glucose (12/14/2023 5:32 PM CDT) Glucose, POC 214(H) 70 - 199 mg/dL Blood 12/14/2023 5:32 PM CDT 12/14/2023 5:32 PM CDT us Álvaro Radford MD LAB POCT ORDERABLES - DEVIC E Final Result Performing Organization Address [facility] de Phone Number [facility] [place] [address] * POCT glucose (12/14/2023 11:23 AM CDT) Glucose, POC 185 70 - 199 mg/dL Blood 12/14/2023 11:2 3 AM CDT 12/14/2023 11:23 AM CDT Álvaro Radford MD LAB POCT ORDERABLES - DEVIC E Final Result Performing Organization Address [facility] de Phone Number [facility] [place] [address] * POCT glucose (12/14/2023 7:47 AM CDT) Glucose, POC 128 70 - 199 mg/dL Blood 12/14/2023 7:47 AM CDT 12/14/2023 7:47 AM CDT us Álvaro Radford MD LAB POCT ORDERABLES - DEVIC E Final Result Performing Organization Address [facility] Co de Phone Number [facility] [place] [address] * eGFR (12/13/2023 9:51 PM CDT) eGFR [...] BLOOD ORDERABLES Final Result Performing Organization Address [facility] de Phone Number GO [facility] [place] [address] * Differential, auto (12/13/2023 9:51 PM CDT) Neutrophil abs 5.2 1.5 - 6.5 K/cumm Imm gran abs 0.0 0.0 - 0.1 K/cumm [facility] Lymphocyte abs 2.4 0.8 - 3.3 K/cumm [facility] Monocyte abs 0.8 0.2 - 0.8 K/cumm [facility] Eosinophil abs 0.2 0.0 - 0.5 K/cumm [facility] Basophil abs 0.1 0.0 - 0.1 K/cumm [facility] Neutrophil pct 59.8 % [facility] Comment: Interpretive Data Percent cell count reference ranges are not reported, since discordance with absolute values may lead to misinterpretation of CBC data. Current Interpretive Data was last revised on 2017. Imm gran pct 0.2 % [facility] Comment: Interpretive Data Percent cell count reference ranges are not reported, since discordance with absolute values may lead to misinterpretation of CBC data. Current Interpretive Data was last revised on 2017. Lymphocyte pct 27.8 % [facility] Comment: Interpretive Data Percent cell count reference ranges are not reported, since discordance with absolute values may lead to misinterpretation of CBC data. Current Interpretive Data was last revised on 2017. Monocyte pct 8.8 % [facility] Comment: Interpretive Data Percent cell count reference ranges are not reported, since discordance with absolute values may lead to misinterpretation of CBC data. Current Interpretive Data was last revised on 2017. Eosinophil pct 2.8 % [facility] Comment: Interpretive Data Percent cell count reference ranges are not reported, since discordance with absolute values may lead to misinterpretation of CBC data. Current Interpretive Data was last revised on 2017. Basophil pct 0.6 % [facility] Comment: Interpretive Data Percent cell count reference ranges are not reported, since discordance with absolute values may lead to misinterpretation of CBC data. Current Interpretive Data was last revised on 2017. Blood 12/13/2023 9:51 PM CDT 12/13/2023 10:19 PM CDT Álvaro Radford MD LAB BLOOD ORDERABLES Final Result Performing Organization Address [facility]/ZIP Co de Phone Number [facility] [place] [address] * (ABNORMAL) CBC with auto differential (12/13/2023 9:51 PM CDT) Pathologist [facility] WBC 8.7 3.8 - 9.9 K/cumm Hgb 7.7(L) 11.9 - 15.5 g/dL [facility] Hct 25.4(L) 35.6 - 45.5 % [facility] Plt 354 150 - 400 K/cumm [facility] MPV 10.4 9.1 - 12.3 fL [facility] RBC 2.93(L) 3.90 - 5.20 M/cumm [facility] MCV 86.7 81.3 - 96.4 fL [facility] MCH 26.3(L) 27.1 - 33.3 pg [facility] MCHC 30.3(L) 32.3 - 35.7 g/dL [facility] RDW CV 19.2(H) 11.1 - 14.9 % [facility] RDW SD 60.9(H) 35.7 - 48.1 fL [facility] NRBC abs 0.00 0.00 - 0.01 K/cumm [facility] Blood 12/13/2023 9:51 PM CDT 12/13/2023 10:19 PM CDT us Álvaro Radford MD LAB BLOOD ORDERABLES Final Result [facility] [place] [address] * Type and screen (12/13/2023 9:51 PM CDT) Maira, indirect Negative ABO Rh O Positive [facility] Blood 12/13/2023 9:51 PM CDT 12/13/2023 10:18 PM CDT Narrative [facility] - 12/13/2023 11:24 PM CDT Has the patient had Daratumumab or Isatuximab in the past 6 months?->Unknown Álvaro Radford MD LAB BLOOD BANK TEST ORDERAB LES Final Result Performing Organization Address [facility] Co de Phone Number [facility] [place] [address] * Magnesium (12/13/2023 9:51 PM CDT) Pathologist [facility] Magnesium 2.0 1.4 - 2.5 mg/dL Blood 12/13/2023 9:51 PM CDT 12/13/2023 10:18 PM CDT Álvaro Radford MD LAB BLOOD ORDERABLES Final Result Performing Organization Address [facility] de Phone Number [facility] [place] [address] * (ABNORMAL) Renal function panel (12/13/2023 9:51 PM CDT) Pathologist [facility] Sodium 137 135 - 145 mmol/L Potassium, pl 4.5 3.3 - 4.9 mmol/L [facility] Chloride 103 97 - 110 mmol/L [facility] CO2 26 22 - 32 mmol/L [facility] Anion gap 8 2 - 15 mmol/L [facility] BUN 16 6 - 25 mg/dL [facility] Creatinine 0.78 0.60 - 1.10 mg/dL [facility] Glucose 127 70 - 199 mg/dL [facility] Comment: Interpretive Data Fasting glucose >/= 126 [...] 2022. Calcium 8.4(L) 8.5 - 10.3 mg/dL [facility] Phosphorus, pl 3.0 2.3 - 4.5 mg/dL [facility] Albumin 2.5(L) 3.5 - 5.0 g/dL [facility] Blood 12/13/2023 9:51 PM CDT 12/13/2023 10:18 PM CDT Álvaro Radford MD LAB BLOOD ORDERABLES Final Result Performing Organization Address [facility] de Phone Number [facility] [place] [address] * POCT glucose (12/13/2023 8:24 PM CDT) Glucose, POC 163 70 - 199 mg/dL Blood 12/13/2023 8:24 PM CDT 12/13/2023 8:24 PM CDT Álvaro Radford MD LAB POCT ORDERABLES - DEVIC E Final Result Performing Organization Address [facility]. [facility] de Phone Number [facility] [place] [place] [address] * POCT glucose (12/13/2023 4:31 PM CDT) Glucose, POC 128 70 - 199 mg/dL Blood 12/13/2023 4:31 PM CDT 12/13/2023 4:31 PM CDT Álvaro Radford MD LAB POCT ORDERABLES - DEVIC E Final Result Performing Organization Address [facility] de Phone Number [facility] [place] [address] * (ABNORMAL) POCT glucose (12/13/2023 11:07 AM CDT) Glucose, POC 213(H) 70 - 199 mg/dL Blood 12/13/2023 11:0 7 AM CDT 12/13/2023 11:07 AM CDT Álvaro Radford MD LAB POCT ORDERABLES - DEVIC E Final Result Performing Organization Address City/[facility] [place] [address] * POCT glucose (12/13/2023 7:48 AM CDT) Glucose, POC 121 70 - 199 mg/dL Blood 12/13/2023 7:48 AM CDT 12/13/2023 7:48 AM CDT us Álvaro Radford MD LAB POCT ORDERABLES - DEVIC E Final Result Performing Organization Address City/[facility] [place] [address] * POCT glucose (12/12/2023 7:59 PM CDT) Glucose, POC 149 70 - 199 mg/dL Blood 12/12/2023 7:59 PM CDT 12/12/2023 7:59 PM CDT us Álvaro Radford MD LAB POCT ORDERABLES - DEVIC E Final Result Performing Organization Address City/[facility] Co de Phone Number [facility] [place] [address] * POCT glucose (12/12/2023 5:09 PM CDT) Glucose, POC 181 70 - 199 mg/dL Blood 12/12/2023 5:09 PM CDT 12/12/2023 5:09 PM CDT Álvaro Radford MD LAB POCT ORDERABLES - DEVIC E Final Result Performing Organization Address [facility] Co de Phone Number [facility] [place] [employer] [place] [address] * (ABNORMAL) POCT glucose (12/12/2023 11:19 AM CDT) Glucose, POC 206(H) 70 - 199 mg/dL Comment:Glu2: RN/MD Notified Glucose comment 1 Glu2: RN/MD Notified [facility] Blood 12/12/2023 11:1 9 AM CDT 12/12/2023 11:19 AM CDT Álvaro Radford MD LAB POCT ORDERABLES - DEVIC E Final Result Performing Organization Address [facility] [place] [address] * POCT glucose (12/12/2023 7:24 AM CDT) Glucose, POC 114 70 - 199 mg/dL Blood 12/12/2023 7:24 AM CDT 12/12/2023 7:24 AM CDT Álvaro Radford MD LAB POCT ORDERABLES - DEVIC E Final Result Performing Organization Address [facility] [place] [address] * eGFR (12/11/2023 10:15 PM CDT) eGFR 82 >=60 mL/min/1. 73 [...] BLOOD ORDERABLES Final Result Performing Organization Address City/State/[facility] Co de Phone Number [facility] [place] [address] * Differential, auto (12/11/2023 10:15 PM CDT) Neutrophil abs 5.0 1.5 - 6.5 K/cumm Imm gran abs 0.0 0.0 - 0.1 K/cumm [facility] Lymphocyte abs 2.1 0.8 - 3.3 K/cumm [facility] Monocyte abs 0.7 0.2 - 0.8 K/cumm [facility] Eosinophil abs 0.3 0.0 - 0.5 K/cumm [facility] Basophil abs 0.1 0.0 - 0.1 K/cumm [facility] Neutrophil pct 61.1 % [facility] Comment: Interpretive Data Percent cell count reference ranges are not reported, since discordance with absolute values may lead to misinterpretation of CBC data. Current Interpretive Data was last revised on 2017. Imm gran pct 0.5 % [facility] Comment: Interpretive Data Percent cell count reference ranges are not reported, since discordance with absolute values may lead to misinterpretation of CBC data. Current Interpretive Data was last revised on 2017. Lymphocyte pct 25.9 % [facility] Comment: Interpretive Data Percent cell count reference ranges are not reported, since discordance with absolute values may lead to misinterpretation of CBC data. Current Interpretive Data was last revised on 2017. Monocyte pct 8.7 % [facility] Comment: Interpretive Data Percent cell count reference ranges are not reported, since discordance with absolute values may lead to misinterpretation of CBC data. Current Interpretive Data was last revised on 2017. Eosinophil pct 3.2 % [facility] Comment: Interpretive Data Percent cell count reference ranges are not reported, since discordance with absolute values may lead to misinterpretation of CBC data. Current Interpretive Data was last revised on 2017. Basophil pct 0.6 % [facility] Comment: Interpretive Data Percent cell count reference ranges are not reported, since discordance with absolute values may lead to misinterpretation of CBC data. Current Interpretive Data was last revised on 2017. Blood 12/11/2023 10:1 5 PM CDT 12/11/2023 11:07 PM CDT us Maxime Lee MD LAB BLOOD ORDERABLES Final R esult [facility] [place] [address] * (ABNORMAL) CBC with auto differential (12/11/2023 10:15 PM CDT) WBC 8.2 3.8 - 9.9 K/cumm Hgb 7.3(L) 11.9 - 15.5 g/dL [facility] Hct 25.3(L) 35.6 - 45.5 % [facility] Plt 290 150 - 400 K/cumm [facility] MPV 10.8 9.1 - 12.3 fL [facility] RBC 2.90(L) 3.90 - 5.20 M/cumm [facility] MCV 87.2 81.3 - 96.4 fL [facility] MCH 25.2(L) 27.1 - 33.3 pg [facility] MCHC 28.9(L) 32.3 - 35.7 g/dL [facility] RDW CV 19.1(H) 11.1 - 14.9 % [facility] RDW SD 61.1(H) 35.7 - 48.1 fL [facility] NRBC abs 0.00 0.00 - 0.01 K/cumm [facility] Blood 12/11/2023 10:1 5 PM CDT 12/11/2023 11:07 PM CDT us Maxime Lee MD LAB BLOOD ORDERABLES Final R esult Performing Organization Address City/[facility]/ZIP Co de Phone Number [facility] [place] [address] * Magnesium (12/11/2023 10:15 PM CDT) Pathologist [facility] Magnesium 2.0 1.4 - 2.5 mg/dL Blood 12/11/2023 10:1 5 PM CDT 12/11/2023 11:02 PM CDT us Álvaro Radford MD LAB BLOOD ORDERABLES Final Result [facility] [place] [employer] [place] [address] * (ABNORMAL) Hepatic function panel (12/11/2023 10:15 PM CDT) Bilirubin, total <0.2 0.1 - 1.2 mg/dL Bilirubin, direct <0.2 0.1 - 0.3 mg/dL [facility] Protein, pl 6.8 6.5 - 8.5 g/dL [facility] Albumin 2.8(L) 3.5 - 5.0 g/dL [facility] Alk phos 83 40 - 130 Units/L [facility] ALT 11 7 - 45 Units/L [facility] AST 25 10 - 45 Units/L [facility] Blood 12/11/2023 10:1 5 PM CDT 12/11/2023 11:02 PM CDT us Álvaro Radford MD LAB BLOOD ORDERABLES Final Result [facility] [place] [address] * (ABNORMAL) Renal function panel (12/11/2023 10:15 PM CDT) [facility] Sodium 140 135 - 145 mmol/L Potassium, pl 4.4 3.3 - 4.9 mmol/L [facility] Chloride 103 97 - 110 mmol/L [facility] CO2 28 22 - 32 mmol/L [facility] Anion gap 9 2 - 15 mmol/L [facility] BUN 13 6 - 25 mg/dL [facility] Creatinine 0.80 0.60 - 1.10 mg/dL [facility] Glucose 161 70 - 199 mg/dL [facility] Comment: Interpretive Data Fasting glucose >/= 126 [...] 2022. Calcium 8.2(L) 8.5 - 10.3 mg/dL [facility] Phosphorus, pl 3.0 2.3 - 4.5 mg/dL [facility] Albumin 2.8(L) 3.5 - 5.0 g/dL [facility] Blood 12/11/2023 10:1 5 PM CDT 12/11/2023 11:02 PM CDT Álvaro Radford MD LAB BLOOD ORDERABLES Final Result Performing Organization Address City/[facility] Co de Phone Number [facility] [place] [place] [address] * POCT glucose (12/11/2023 9:48 PM CDT) Glucose, POC 181 70 - 199 mg/dL Blood 12/11/2023 9:48 PM CDT 12/11/2023 9:48 PM CDT Álvaro Radford MD LAB POCT ORDERABLES - DEVIC E Final Result Performing Organization Address [facility] Co de Phone Number [facility] [place] [employer] [place] [address] * POCT glucose (12/11/2023 4:59 PM CDT) Glucose, POC 95 70 - 199 mg/dL Blood 12/11/2023 4:59 PM CDT 12/11/2023 4:59 PM CDT Álvaro Radford MD LAB POCT ORDERABLES - DEVIC E Final Result Performing Organization Address [facility] Co de Phone Number [facility] [place] [employer] [address] * (ABNORMAL) POCT glucose (12/11/2023 11:48 AM CDT) Glucose, POC 207(H) 70 - 199 mg/dL Blood 12/11/2023 11:4 8 AM CDT 12/11/2023 11:48 AM CDT us Álvaro Radford MD LAB POCT ORDERABLES - DEVIC E Final Result Performing Organization Address [facility] de Phone Number [facility] [place] [employer] [place] [address] * POCT glucose (12/11/2023 8:31 AM CDT) [facility] Glucose, POC 110 70 - 199 mg/dL Blood 12/11/2023 8:31 AM CDT 12/11/2023 8:31 AM CDT us Álvaro Radford MD LAB POCT ORDERABLES - DEVIC E Final Result Performing Organization Address [facility] de Phone Number [facility] [place] [address] * (ABNORMAL) Hemoglobin and hematocrit (12/11/2023 3:14 AM CDT) [facility] Hgb 7.2(L) 11.9 - 15.5 g/dL Hct 23.9(L) 35.6 - 45.5 % [facility] Blood 12/11/2023 3:14 AM CDT 12/11/2023 3:34 AM CDT us Álvaro Radford MD LAB BLOOD ORDERABLES Final Result Performing Organization Address [facility] [place] [address] * eGFR (12/11/2023 12:10 AM CDT) [facility] eGFR 75 >=60 mL/min/1. 73 m2 Comment: [...] BLOOD ORDERABLES Final Result Performing Organization Address City/State/[facility] Co de Phone Number [facility] [place] [address] * (ABNORMAL) Differential, auto (12/11/2023 12:10 AM CDT) Neutrophil abs 6.4 1.5 - 6.5 K/cumm Imm gran abs 0.1 0.0 - 0.1 K/cumm [facility] Lymphocyte abs 2.4 0.8 - 3.3 K/cumm [facility] Monocyte abs 1.1(H) 0.2 - 0.8 K/cumm [facility] Eosinophil abs 0.3 0.0 - 0.5 K/cumm [facility] Basophil abs 0.1 0.0 - 0.1 K/cumm [facility] Neutrophil pct 62.4 % [facility] Comment: Interpretive Data Percent cell count reference ranges are not reported, since discordance with absolute values may lead to misinterpretation of CBC data. Current Interpretive Data was last revised on 2017. Imm gran pct 0.5 % [facility] Comment: Interpretive Data Percent cell count reference ranges are not reported, since discordance with absolute values may lead to misinterpretation of CBC data. Current Interpretive Data was last revised on 2017. Lymphocyte pct 23.6 % [facility] Comment: Interpretive Data Percent cell count reference ranges are not reported, since discordance with absolute values may lead to misinterpretation of CBC data. Current Interpretive Data was last revised on 2017. Monocyte pct 10.3 % [facility] Comment: Interpretive Data Percent cell count reference ranges are not reported, since discordance with absolute values may lead to misinterpretation of CBC data. Current Interpretive Data was last revised on 2017. Eosinophil pct 2.7 % [facility] Comment: Interpretive Data Percent cell count reference ranges are not reported, since discordance with absolute values may lead to misinterpretation of CBC data. Current Interpretive Data was last revised on 2017. Basophil pct 0.5 % [facility] Comment: Interpretive Data Percent cell count reference ranges are not reported, since discordance with absolute values may lead to misinterpretation of CBC data. Current Interpretive Data was last revised on 2017. Blood 12/11/2023 12:1 0 AM CDT 12/11/2023 12:37 AM CDT us Maxime Lee MD LAB BLOOD ORDERABLES Final R esult [facility] [place] [address] * (ABNORMAL) CBC with auto differential (12/11/2023 12:10 AM CDT) WBC 10.2(H) 3.8 - 9.9 K/cumm Hgb 7.0(L) 11.9 - 15.5 g/dL [facility] Hct 23.7(L) 35.6 - 45.5 % [facility] Plt 424(H) 150 - 400 K/cumm [facility] MPV 9.3 9.1 - 12.3 fL [facility] RBC 2.71(L) 3.90 - 5.20 M/cumm [facility] MCV 87.5 81.3 - 96.4 fL [facility] MCH 25.8(L) 27.1 - 33.3 pg [facility] MCHC 29.5(L) 32.3 - 35.7 g/dL [facility] RDW CV 19.1(H) 11.1 - 14.9 % [facility] RDW SD 61.2(H) 35.7 - 48.1 fL [facility] NRBC abs 0.00 0.00 - 0.01 K/cumm [facility] Blood 12/11/2023 12:1 0 AM CDT 12/11/2023 12:37 AM CDT us Maxime Lee MD LAB BLOOD ORDERABLES Final R esult Performing Organization Address City/[facility]/ZIP Co de Phone Number [facility] [place] [employer] [place] [address] * Type and screen (12/11/2023 12:10 AM CDT) Maira, indirect Negative ABO Rh O Positive [facility] Blood 12/11/2023 12:1 0 AM CDT 12/11/2023 12:26 AM CDT Narrative [facility] - 12/11/2023 1:33 AM CDT Has the patient had Daratumumab or Isatuximab in the past 6 months?->Unknown us Álvaro Radford MD LAB BLOOD BANK TEST ORDERAB LES Final Result Performing Organization Address City/[facility]/ZIP Co de Phone Number [facility] [place] [address] * Magnesium (12/11/2023 12:10 AM CDT) Magnesium 1.8 1.4 - 2.5 mg/dL Blood 12/11/2023 12:1 0 AM CDT 12/11/2023 12:37 AM CDT Álvaro Radford MD LAB BLOOD ORDERABLES Final Result [facility] [place] [address] * (ABNORMAL) Renal function panel (12/11/2023 12:10 AM CDT) Pathologist [facility] Sodium 138 135 - 145 mmol/L Potassium, pl 3.9 3.3 - 4.9 mmol/L [facility] Chloride 105 97 - 110 mmol/L [facility] CO2 26 22 - 32 mmol/L [facility] Anion gap 7 2 - 15 mmol/L [facility] BUN 13 6 - 25 mg/dL [facility] Creatinine 0.86 0.60 - 1.10 mg/dL [facility] Glucose 111 70 - 199 mg/dL [facility] Comment: Interpretive Data Fasting glucose >/= 126 [...] 2022. Calcium 8.4(L) 8.5 - 10.3 mg/dL [facility] Phosphorus, pl 2.8 2.3 - 4.5 mg/dL [facility] Albumin 2.1(L) 3.5 - 5.0 g/dL [facility] Blood 12/11/2023 12:1 0 AM CDT 12/11/2023 12:37 AM CDT us Álvaro Radford MD LAB BLOOD ORDERABLES Final Result Performing Organization Address [facility] de Phone Number [facility] [place] [address] * POCT glucose (12/10/2023 8:55 PM CDT) Glucose, POC 167 70 - 199 mg/dL Blood 12/10/2023 8:55 PM CDT 12/10/2023 8:55 PM CDT us Álvaro Radford MD LAB POCT ORDERABLES - DEVIC E Final Result Performing Organization Address [facility] Phone Number [facility] [place] [address] * POCT glucose (12/10/2023 5:23 PM CDT) Glucose, POC 116 70 - 199 mg/dL Blood 12/10/2023 5:23 PM CDT 12/10/2023 5:23 PM CDT us Álvaro Radford MD LAB POCT ORDERABLES - DEVIC E Final Result Performing Organization Address [facility] de Phone Number [facility] [place] [address] * POCT glucose (12/10/2023 11:28 AM CDT) Glucose, POC 165 70 - 199 mg/dL Blood 12/10/2023 11:2 8 AM CDT 12/10/2023 11:28 AM CDT us Álvaro Radford MD LAB POCT ORDERABLES - DEVIC E Final Result Performing Organization Address [facility] de Phone Number [facility] [place] [address] * POCT glucose (12/10/2023 8:32 AM CDT) [facility] Glucose, POC 111 70 - 199 mg/dL Blood 12/10/2023 8:32 AM CDT 12/10/2023 8:32 AM CDT us Álvaro Radford MD LAB POCT ORDERABLES - DEVIC E Final Result Performing Organization Address City/State/[facility] Co de Phone Number [facility] [place] [address] * eGFR (12/09/2023 11:02 PM CDT) [facility] eGFR 81 >=60 mL/min/1. 73 m2 Comment: [...] Radford MD LAB BLOOD ORDERABLES Final Result [facility] [place] [address] * (ABNORMAL) Differential, auto (12/09/2023 11:02 PM CDT) Neutrophil abs 14.7(H) 1.5 - 6.5 K/cumm Imm gran abs 0.1 0.0 - 0.1 K/cumm [facility] Lymphocyte abs 1.9 0.8 - 3.3 K/cumm [facility] Monocyte abs 1.1(H) 0.2 - 0.8 K/cumm [facility] Eosinophil abs 0.1 0.0 - 0.5 K/cumm [facility] Basophil abs 0.1 0.0 - 0.1 K/cumm [facility] Neutrophil pct 82.0 % [facility] Comment: Interpretive Data Percent cell count reference ranges are not reported, since discordance with absolute values may lead to misinterpretation of CBC data. Current Interpretive Data was last revised on 2017. Imm gran pct 0.7 % [facility] Comment: Interpretive Data Percent cell count reference ranges are not reported, since discordance with absolute values may lead to misinterpretation of CBC data. Current Interpretive Data was last revised on 2017. Lymphocyte pct 10.7 % [facility] Comment: Interpretive Data Percent cell count reference ranges are not reported, since discordance with absolute values may lead to misinterpretation of CBC data. Current Interpretive Data was last revised on 2017. Monocyte pct 5.9 % [facility] Comment: Interpretive Data Percent cell count reference ranges are not reported, since discordance with absolute values may lead to misinterpretation of CBC data. Current Interpretive Data was last revised on 2017. Eosinophil pct 0.4 % [facility] Comment: Interpretive Data Percent cell count reference ranges are not reported, since discordance with absolute values may lead to misinterpretation of CBC data. Current Interpretive Data was last revised on 2017. Basophil pct 0.3 % [facility] Comment: Interpretive Data Percent cell count reference ranges are not reported, since discordance with absolute values may lead to misinterpretation of CBC data. Current Interpretive Data was last revised on 2017. Blood 12/09/2023 11:0 2 PM CDT 12/09/2023 11:12 PM CDT us Maxime Lee MD LAB BLOOD ORDERABLES Final R esult [facility] [place] [address] * (ABNORMAL) CBC with auto differential (12/09/2023 11:02 PM CDT) WBC 17.9(H) 3.8 - 9.9 K/cumm Hgb 7.3(L) 11.9 - 15.5 g/dL [facility] Hct 24.2(L) 35.6 - 45.5 % [facility] Plt 413(H) 150 - 400 K/cumm [facility] MPV 9.1 9.1 - 12.3 fL [facility] RBC 2.80(L) 3.90 - 5.20 M/cumm [facility] MCV 86.4 81.3 - 96.4 fL [facility] MCH 26.1(L) 27.1 - 33.3 pg [facility] MCHC 30.2(L) 32.3 - 35.7 g/dL [facility] RDW CV 18.8(H) 11.1 - 14.9 % [facility] RDW SD 59.6(H) 35.7 - 48.1 fL [facility] NRBC abs 0.00 0.00 - 0.01 K/cumm [facility] Blood 12/09/2023 11:0 2 PM CDT 12/09/2023 11:12 PM CDT us Maxime Lee MD LAB BLOOD ORDERABLES Final R esult [facility] [place] [address] * (ABNORMAL) Renal function panel (12/09/2023 11:02 PM CDT) Sodium 141 135 - 145 mmol/L Potassium, pl 4.1 3.3 - 4.9 mmol/L [facility] Chloride 108 97 - 110 mmol/L [facility] CO2 27 22 - 32 mmol/L [facility] Anion gap 6 2 - 15 mmol/L [facility] BUN 10 6 - 25 mg/dL [facility] Creatinine 0.81 0.60 - 1.10 mg/dL [facility] Glucose 114 70 - 199 mg/dL [facility] Comment: Interpretive Data Fasting glucose >/= 126 [...] 2022. Calcium 8.1(L) 8.5 - 10.3 mg/dL [facility] Phosphorus, pl 3.4 2.3 - 4.5 mg/dL [facility] Albumin 2.5(L) 3.5 - 5.0 g/dL [facility] Blood 12/09/2023 11:0 2 PM CDT 12/09/2023 11:12 PM CDT us Álvaro Radford MD LAB BLOOD ORDERABLES Final Result Performing Organization Address City/[facility]/ZIP Co de Phone Number [facility] [place] [address] * POCT glucose (12/09/2023 8:21 PM CDT) Glucose, POC 167 70 - 199 mg/dL Blood 12/09/2023 8:21 PM CDT 12/09/2023 8:21 PM CDT Álvaro Radford MD LAB POCT ORDERABLES - DEVIC E Final Result Performing Organization Address [facility] de Phone Number [facility] [place] [address] * POCT glucose (12/09/2023 5:01 PM CDT) Glucose, POC 137 70 - 199 mg/dL Blood 12/09/2023 5:01 PM CDT 12/09/2023 5:01 PM CDT Álvaro Radford MD LAB POCT ORDERABLES - DEVIC E Final Result Performing Organization Address [facility] [place] [address] * Urinalysis reflex to microscopic and culture Urine (12/09/2023 4:51 PM CDT) Color, ur Yellow Yellow Clarity, ur Clear Clear [facility] Specific gravity, ur 1.016 1.003 - 1.030 [facility] pH, urine 6.0 [facility] Comment: Interpretive Data ? Urine pH is affected by diet, medications, systemic acid-base disturbances, and renal tubular function. ??pH may affect urinary stone formation. ??For example, urine pH below 6.0 may help reduce the tendency for calcium phosphate stones and pH greater than 6.0 may reduce the tendency for uric acid stone formation. Source: [facility] [employer] Current Interpretive Data was last revised on 2017 Protein, ur ql Trace Negative [facility] Glucose, ur ql Negative Negative [facility] Ketones, ur Negative Negative [facility] Bilirubin, ur Negative Negative [facility] Blood, ur Negative Negative [facility] Urobilinogen, ur <2.0 <2.0 mg/dL [facility] Nitrite, ur Negative Negative [facility] Leukocyte esterase, ur Negative Negative [facility] UA reflex comment Reflex conditions for microscopic UA and culture not met. [facility] Urine 12/09/2023 4:51 PM CDT 12/09/2023 5:25 PM CDT Álvaro Radford MD LAB MICROBIOLOGY - GENERAL ORDERABLES Final Result Performing Organization Address [facility]. [facility] de Phone Number [facility] [place] [place] [address] * Lactate (12/09/2023 3:21 PM CDT) Pathologist [facility] Lactate 1.6 0.7 - 2.0 mmol/L Blood 12/09/2023 3:21 PM CDT 12/09/2023 3:44 PM CDT Álvaro Radford MD LAB BLOOD ORDERABLES Final Result Performing Organization Address [facility] de Phone Number [facility] [place] [place] [address] * eGFR (12/09/2023 12:27 PM CDT) eGFR [...] BLOOD ORDERABLES Final Result Performing Organization Address City/State/[facility] Co de Phone Number [facility] [place] [address] * Blood culture Blood (12/09/2023 12:27 PM CDT) Report Final Report: No growth Blood 12/09/2023 12:2 7 PM CDT 12/09/2023 1:12 PM CDT Narrative [facility] - 12/13/2023 4:00 PM CDT From a [...] organism identification may be performed using the Sim[employer] Gram-Positive Blood Culture Assay. This assay detects microbial DNA in positive blood culture broth via hybridization of target DNA to capture oligonucleotides on a microarray. This assay has been cleared by the [place] Food and Drug Administration and its performance characteristics have been verified by the [facility]. 5. ?For questions about this culture, contact the Microbiology Laboratory at [phone]. Interpretive data was last revised on 2019. Álvaro Radford MD LAB MICROBIOLOGY - GENERAL ORDERABLES Final Result [facility] [place] [address] * Blood culture Blood (12/09/2023 12:27 PM CDT) Report Final Report: No growth Blood 12/09/2023 12:2 7 PM CDT 12/09/2023 1:12 PM CDT Narrative [facility] - 12/13/2023 4:00 PM CDT Collection->Peripheral 1. [...] performance characteristics have been verified by the [facility]. 5. ?For questions about this culture, contact the Microbiology Laboratory at [phone]. Interpretive data was last revised on 2019. Álvaro Radford MD LAB MICROBIOLOGY - GENERAL ORDERABLES Final Result [facility] [place] [address] * (ABNORMAL) CBC without differential (12/09/2023 12:27 PM CDT) WBC 16.5(H) 3.8 - 9.9 K/cumm Hgb 9.1(L) 11.9 - 15.5 g/dL [facility] Hct 31.0(L) 35.6 - 45.5 % [facility] Plt 516(H) 150 - 400 K/cumm [facility] MPV 9.8 9.1 - 12.3 fL [facility] RBC 3.54(L) 3.90 - 5.20 M/cumm [facility] MCV 87.6 81.3 - 96.4 fL [facility] MCH 25.7(L) 27.1 - 33.3 pg [facility] MCHC 29.4(L) 32.3 - 35.7 g/dL [facility] RDW CV 19.0(H) 11.1 - 14.9 % [facility] RDW SD 60.5(H) 35.7 - 48.1 fL [facility] NRBC abs 0.00 0.00 - 0.01 K/cumm [facility] Blood 12/09/2023 12:2 7 PM CDT 12/09/2023 12:54 PM CDT Álvaro Radford MD LAB BLOOD ORDERABLES Final Result [facility] [place] [address] * Magnesium (12/09/2023 12:27 PM CDT) Pathologist [facility] Magnesium 2.0 1.4 - 2.5 mg/dL Blood 12/09/2023 12:2 7 PM CDT 12/09/2023 12:54 PM CDT Álvaro Radford MD LAB BLOOD ORDERABLES Final Result Performing Organization Address City/[facility] Co de Phone Number [facility] One [facility] [place] [address] * Basic metabolic panel (12/09/2023 12:27 PM CDT) Pathologist [facility] Sodium 136 135 - 145 mmol/L Potassium, pl See Comment 3.3 - 4.9 mmol/L [facility] Comment:Credited; Hemolyzed Specimen Chloride 102 97 - 110 mmol/L [facility] CO2 24 22 - 32 mmol/L [facility] Anion gap 10 2 - 15 mmol/L [facility] BUN 11 6 - 25 mg/dL [facility] Creatinine 0.73 0.60 - 1.10 mg/dL [facility] Glucose 160 70 - 199 mg/dL [facility] Comment: Interpretive Data Fasting glucose >/= 126 [...] 2022. Calcium 8.8 8.5 - 10.3 mg/dL [facility] Blood 12/09/2023 12:2 7 PM CDT 12/09/2023 12:54 PM CDT us Álvaro Radford MD LAB BLOOD ORDERABLES Final Result Performing Organization Address [facility] de Phone Number [facility] [place] [address] * (ABNORMAL) POCT lactate (12/09/2023 12:20 PM CDT) Lactate POC i-STAT 5.0(C) 0.7 - 2.2 mmol/L Blood 12/09/2023 12:2 0 PM CDT 12/09/2023 12:20 PM CDT us Álvaro Radford MD LAB POCT ORDERABLES - DEVIC E Final Result Performing Organization Address [facility] de Phone Number [facility] [place] [address] * POCT glucose (12/09/2023 12:02 PM CDT) Glucose, POC 175 70 - 199 mg/dL Blood 12/09/2023 12:0 2 PM CDT 12/09/2023 12:02 PM CDT us Álvaro Radford MD LAB POCT ORDERABLES - DEVIC E Final Result Performing Organization Address [facility] de Phone Number [facility] [place] [address] * POCT glucose (12/09/2023 8:12 AM CDT) Glucose, POC 135 70 - 199 mg/dL Blood 12/09/2023 8:12 AM CDT 12/09/2023 8:12 AM CDT us Álvaro Radford MD LAB POCT ORDERABLES - DEVIC E Final Result Performing Organization Address [facility] Co de Phone Number [facility] [place] [address] * eGFR (12/08/2023 8:30 PM CDT) eGFR [...] BLOOD ORDERABLES Final Result Performing Organization Address [facility] Co de Phone Number GO [facility] [place] [address] * (ABNORMAL) Differential, auto (12/08/2023 8:30 PM CDT) Neutrophil abs 6.7(H) 1.5 - 6.5 K/cumm Imm gran abs 0.1 0.0 - 0.1 K/cumm [facility] Lymphocyte abs 2.3 0.8 - 3.3 K/cumm [facility] Monocyte abs 0.7 0.2 - 0.8 K/cumm [facility] Eosinophil abs 0.2 0.0 - 0.5 K/cumm [facility] Basophil abs 0.1 0.0 - 0.1 K/cumm [facility] Neutrophil pct 66.8 % [facility] Comment: Interpretive Data Percent cell count reference ranges are not reported, since discordance with absolute values may lead to misinterpretation of CBC data. Current Interpretive Data was last revised on 2017. Imm gran pct 0.6 % [facility] Comment: Interpretive Data Percent cell count reference ranges are not reported, since discordance with absolute values may lead to misinterpretation of CBC data. Current Interpretive Data was last revised on 2017. Lymphocyte pct 22.8 % [facility] Comment: Interpretive Data Percent cell count reference ranges are not reported, since discordance with absolute values may lead to misinterpretation of CBC data. Current Interpretive Data was last revised on 2017. Monocyte pct 7.1 % [facility] Comment: Interpretive Data Percent cell count reference ranges are not reported, since discordance with absolute values may lead to misinterpretation of CBC data. Current Interpretive Data was last revised on 2017. Eosinophil pct 2.1 % [facility] Comment: Interpretive Data Percent cell count reference ranges are not reported, since discordance with absolute values may lead to misinterpretation of CBC data. Current Interpretive Data was last revised on 2017. Basophil pct 0.6 % [facility] Comment: Interpretive Data Percent cell count reference ranges are not reported, since discordance with absolute values may lead to misinterpretation of CBC data. Current Interpretive Data was last revised on 2017. Blood 12/08/2023 8:30 PM CDT 12/08/2023 8:47 PM CDT us Maxime Lee MD LAB BLOOD ORDERABLES Final R esult [facility] [place] [address] * (ABNORMAL) CBC with auto differential (12/08/2023 8:30 PM CDT) WBC 10.0(H) 3.8 - 9.9 K/cumm Hgb 8.4(L) 11.9 - 15.5 g/dL [facility] Hct 27.6(L) 35.6 - 45.5 % [facility] Plt 483(H) 150 - 400 K/cumm [facility] MPV 9.2 9.1 - 12.3 fL [facility] RBC 3.26(L) 3.90 - 5.20 M/cumm [facility] MCV 84.7 81.3 - 96.4 fL [facility] MCH 25.8(L) 27.1 - 33.3 pg [facility] MCHC 30.4(L) 32.3 - 35.7 g/dL [facility] RDW CV 18.6(H) 11.1 - 14.9 % [facility] RDW SD 57.9(H) 35.7 - 48.1 fL [facility] NRBC abs 0.00 0.00 - 0.01 K/cumm [facility] Blood 12/08/2023 8:30 PM CDT 12/08/2023 8:47 PM CDT us Maxime Lee MD LAB BLOOD ORDERABLES Final R esult [facility] [place] [address] * Magnesium (12/08/2023 8:30 PM CDT) Magnesium 2.1 1.4 - 2.5 mg/dL Blood 12/08/2023 8:30 PM CDT 12/08/2023 8:47 PM CDT us Silvia Monsivais MD LAB BLOOD ORDERABLES Fi nal Result [facility] [place] [address] * (ABNORMAL) Renal function panel (12/08/2023 8:30 PM CDT) Sodium 137 135 - 145 mmol/L Potassium, pl 4.4 3.3 - 4.9 mmol/L [facility] Chloride 104 97 - 110 mmol/L [facility] CO2 26 22 - 32 mmol/L [facility] Anion gap 7 2 - 15 mmol/L [facility] BUN 13 6 - 25 mg/dL [facility] Creatinine 0.80 0.60 - 1.10 mg/dL [facility] Glucose 178 70 - 199 mg/dL [facility] Comment: Interpretive Data Fasting glucose >/= 126 [...] 2022. Calcium 8.7 8.5 - 10.3 mg/dL [facility] Phosphorus, pl 3.2 2.3 - 4.5 mg/dL [facility] Albumin 2.8(L) 3.5 - 5.0 g/dL [facility] Blood 12/08/2023 8:30 PM CDT 12/08/2023 8:47 PM CDT us Álvaro Radford MD LAB BLOOD ORDERABLES Final Result [facility] [place] [address] * POCT glucose (12/08/2023 8:08 PM CDT) Glucose, POC 182 70 - 199 mg/dL Blood 12/08/2023 8:08 PM CDT 12/08/2023 8:08 PM CDT Álvaro Radford MD LAB POCT ORDERABLES - DEVIC E Final Result Performing Organization Address City/[facility] [place] [address] * POCT glucose (12/08/2023 5:56 PM CDT) Glucose, POC 130 70 - 199 mg/dL Blood 12/08/2023 5:56 PM CDT 12/08/2023 5:56 PM CDT Álvaro Radford MD LAB POCT ORDERABLES - DEVIC E Final Result Performing Organization Address [facility] [place] [address] * POCT glucose (12/08/2023 4:34 PM CDT) Glucose, POC 158 70 - 199 mg/dL Blood 12/08/2023 4:34 PM CDT 12/08/2023 4:34 PM CDT Álvaro Radford MD LAB POCT ORDERABLES - DEVIC E Final Result Performing Organization Address [facility] [place] [address] * POCT glucose (12/08/2023 12:27 PM CDT) Glucose, POC 136 70 - 199 mg/dL Blood 12/08/2023 12:2 7 PM CDT 12/08/2023 12:27 PM CDT Álvaro Radford MD LAB POCT ORDERABLES - DEVIC E Final Result Performing Organization Address [facility] Co de Phone Number [facility] [place] [address] * POCT glucose (12/08/2023 11:27 AM CDT) Glucose, POC 194 70 - 199 mg/dL Blood 12/08/2023 11:2 7 AM CDT 12/08/2023 11:27 AM CDT Álvaro Radford MD LAB POCT ORDERABLES - DEVIC E Final Result Performing Organization Address [facility] Phone Number [facility] [place] [address] * XR Abdomen Ap 1 Vw (12/08/2023 [...] DEVIC E Final Result Performing Organization Address [facility] Co de Phone Number [facility] [place] [address] * POCT glucose (12/07/2023 9:36 PM CDT) Glucose, POC 159 70 - 199 mg/dL Blood 12/07/2023 9:36 PM CDT 12/07/2023 9:36 PM CDT Álvaro Radford MD LAB POCT ORDERABLES - DEVIC E Final Result Performing Organization Address City/[facility] Co de Phone Number [facility] [place] [address] * Infection Prevention Angie auris PCR, surveillance Axilla/Groin (12/07/2023 9:16 PM CDT) Angie auris DNA Not Detected Not Detected [facility] Comment: Interpretive Data Testing performed by [facility] Molecular Infectious Disease Laboratory using the [employer] Liaison MDX Angie auris assay. ??This assay detects DNA from Angie auris using Real-Time PCR. ??This assay is laboratory developed and is not cleared by the [place] Food and Drug Administration. ??The performance characteristics have been verified by the [facility] Infectious Disease Laboratory. Interpretive data was last reviewed on 06/11/2023 Axilla/Groin 12/07/2023 9:16 PM CDT 12/07/2023 10:38 PM CDT us Familia So MD LAB MICROBIOLOGY - GENERAL OR DERABLES Final Result [facility] [place] [address] [facility] * eGFR (12/07/2023 9:16 PM CDT) eGFR [...] Radford MD LAB BLOOD ORDERABLES Final Result [facility] [place] [address] * Differential, auto (12/07/2023 9:16 PM CDT) Neutrophil abs 6.5 1.5 - 6.5 K/cumm Imm gran abs 0.0 0.0 - 0.1 K/cumm [facility] Lymphocyte abs 2.3 0.8 - 3.3 K/cumm [facility] Monocyte abs 0.7 0.2 - 0.8 K/cumm [facility] Eosinophil abs 0.2 0.0 - 0.5 K/cumm [facility] Basophil abs 0.1 0.0 - 0.1 K/cumm [facility] Neutrophil pct 66.6 % [facility] Comment: Interpretive Data Percent cell count reference ranges are not reported, since discordance with absolute values may lead to misinterpretation of CBC data. Current Interpretive Data was last revised on 2017. Imm gran pct 0.3 % [facility] Comment: Interpretive Data Percent cell count reference ranges are not reported, since discordance with absolute values may lead to misinterpretation of CBC data. Current Interpretive Data was last revised on 2017. Lymphocyte pct 23.7 % [facility] Comment: Interpretive Data Percent cell count reference ranges are not reported, since discordance with absolute values may lead to misinterpretation of CBC data. Current Interpretive Data was last revised on 2017. Monocyte pct 7.1 % [facility] Comment: Interpretive Data Percent cell count reference ranges are not reported, since discordance with absolute values may lead to misinterpretation of CBC data. Current Interpretive Data was last revised on 2017. Eosinophil pct 1.7 % [facility] Comment: Interpretive Data Percent cell count reference ranges are not reported, since discordance with absolute values may lead to misinterpretation of CBC data. Current Interpretive Data was last revised on 2017. Basophil pct 0.6 % [facility] Comment: Interpretive Data Percent cell count reference ranges are not reported, since discordance with absolute values may lead to misinterpretation of CBC data. Current Interpretive Data was last revised on 2017. Blood 12/07/2023 9:16 PM CDT 12/07/2023 10:34 PM CDT us Maxime Lee MD LAB BLOOD ORDERABLES Final R esult [facility] [place] [address] * (ABNORMAL) CBC with auto differential (12/07/2023 9:16 PM CDT) WBC 9.7 3.8 - 9.9 K/cumm Hgb 7.8(L) 11.9 - 15.5 g/dL [facility] Hct 26.1(L) 35.6 - 45.5 % [facility] Plt 487(H) 150 - 400 K/cumm [facility] MPV 9.0(L) 9.1 - 12.3 fL [facility] RBC 3.07(L) 3.90 - 5.20 M/cumm [facility] MCV 85.0 81.3 - 96.4 fL [facility] MCH 25.4(L) 27.1 - 33.3 pg [facility] MCHC 29.9(L) 32.3 - 35.7 g/dL [facility] RDW CV 18.7(H) 11.1 - 14.9 % [facility] RDW SD 58.5(H) 35.7 - 48.1 fL [facility] NRBC abs 0.00 0.00 - 0.01 K/cumm [facility] Blood 12/07/2023 9:16 PM CDT 12/07/2023 10:34 PM CDT us Maxime Lee MD LAB BLOOD ORDERABLES Final R esult Performing Organization Address [facility] Co de Phone Number [facility] [place] [address] * Type and screen (12/07/2023 9:16 PM CDT) [facility] Maira, indirect Negative ABO Rh O Positive [facility] Blood 12/07/2023 9:16 PM CDT 12/07/2023 10:54 PM CDT Narrative [facility] - 12/07/2023 11:52 PM CDT Has the patient had Daratumumab or Isatuximab in the past 6 months?->Unknown Álvaro Radford MD LAB BLOOD BANK TEST ORDERAB LES Final Result Performing Organization Address [facility] Co de Phone Number [facility] [place] [address] * Magnesium (12/07/2023 9:16 PM CDT) [facility] Magnesium 2.3 1.4 - 2.5 mg/dL Blood 12/07/2023 9:16 PM CDT 12/07/2023 10:34 PM CDT Álvaro Radford MD LAB BLOOD ORDERABLES Final Result Performing Organization Address [facility] Co de Phone Number [facility] [place] [address] * (ABNORMAL) Renal function panel (12/07/2023 9:16 PM CDT) [facility] Sodium 136 135 - 145 mmol/L Potassium, pl 4.4 3.3 - 4.9 mmol/L [facility] Chloride 102 97 - 110 mmol/L [facility] CO2 25 22 - 32 mmol/L [facility] Anion gap 9 2 - 15 mmol/L [facility] BUN 14 6 - 25 mg/dL [facility] Creatinine 0.82 0.60 - 1.10 mg/dL [facility] Glucose 149 70 - 199 mg/dL [facility] Comment: Interpretive Data Fasting glucose >/= 126 [...] 2022. Calcium 8.3(L) 8.5 - 10.3 mg/dL [facility] Phosphorus, pl 3.3 2.3 - 4.5 mg/dL [facility] Albumin 2.7(L) 3.5 - 5.0 g/dL [facility] Blood 12/07/2023 9:16 PM CDT 12/07/2023 10:34 PM CDT Álvaro Radford MD LAB BLOOD ORDERABLES Final Result Performing Organization Address [facility] Co de Phone Number [facility] [place] [address] * POCT glucose (12/07/2023 5:14 PM CDT) [facility] Glucose, POC 147 70 - 199 mg/dL Blood 12/07/2023 5:14 PM CDT 12/07/2023 5:14 PM CDT Álvaro Radford MD LAB POCT ORDERABLES - DEVIC E Final Result Performing Organization Address [facility] Co de Phone Number [facility] [place] [address] * POCT glucose (12/07/2023 11:36 AM CDT) Glucose, POC 138 70 - 199 mg/dL Blood 12/07/2023 11:3 6 AM CDT 12/07/2023 11:36 AM CDT Álvaro Radford MD LAB POCT ORDERABLES - DEVIC E Final Result Performing Organization Address [facility] de Phone Number [facility] [place] [address] * POCT glucose (12/07/2023 8:41 AM CDT) Glucose, POC 136 70 - 199 mg/dL Blood 12/07/2023 8:41 AM CDT 12/07/2023 8:41 AM CDT Álvaro Radford MD LAB POCT ORDERABLES - DEVIC E Final Result Performing Organization Address [facility] de Phone Number [facility] [place] [address] * eGFR (12/06/2023 9:47 PM CDT) eGFR [...] Radford MD LAB BLOOD ORDERABLES Final Result [facility] [place] [address] * (ABNORMAL) Differential, auto (12/06/2023 9:47 PM CDT) Neutrophil abs 8.7(H) 1.5 - 6.5 K/cumm Imm gran abs 0.1 0.0 - 0.1 K/cumm [facility] Lymphocyte abs 2.3 0.8 - 3.3 K/cumm [facility] Monocyte abs 0.9(H) 0.2 - 0.8 K/cumm [facility] Eosinophil abs 0.2 0.0 - 0.5 K/cumm [facility] Basophil abs 0.1 0.0 - 0.1 K/cumm [facility] Neutrophil pct 71.3 % [facility] Comment: Interpretive Data Percent cell count reference ranges are not reported, since discordance with absolute values may lead to misinterpretation of CBC data. Current Interpretive Data was last revised on 2017. Imm gran pct 0.5 % [facility] Comment: Interpretive Data Percent cell count reference ranges are not reported, since discordance with absolute values may lead to misinterpretation of CBC data. Current Interpretive Data was last revised on 2017. Lymphocyte pct 19.0 % [facility] Comment: Interpretive Data Percent cell count reference ranges are not reported, since discordance with absolute values may lead to misinterpretation of CBC data. Current Interpretive Data was last revised on 2017. Monocyte pct 7.0 % [facility] Comment: Interpretive Data Percent cell count reference ranges are not reported, since discordance with absolute values may lead to misinterpretation of CBC data. Current Interpretive Data was last revised on 2017. Eosinophil pct 1.6 % [facility] Comment: Interpretive Data Percent cell count reference ranges are not reported, since discordance with absolute values may lead to misinterpretation of CBC data. Current Interpretive Data was last revised on 2017. Basophil pct 0.6 % [facility] Comment: Interpretive Data Percent cell count reference ranges are not reported, since discordance with absolute values may lead to misinterpretation of CBC data. Current Interpretive Data was last revised on 2017. Blood 12/06/2023 9:47 PM CDT 12/06/2023 10:24 PM CDT us Maxime Lee MD LAB BLOOD ORDERABLES Final R esult [facility] [place] [address] * (ABNORMAL) CBC with auto differential (12/06/2023 9:47 PM CDT) WBC 12.2(H) 3.8 - 9.9 K/cumm Hgb 8.1(L) 11.9 - 15.5 g/dL [facility] Hct 27.7(L) 35.6 - 45.5 % [facility] Plt 490(H) 150 - 400 K/cumm [facility] MPV 9.1 9.1 - 12.3 fL [facility] RBC 3.23(L) 3.90 - 5.20 M/cumm [facility] MCV 85.8 81.3 - 96.4 fL [facility] MCH 25.1(L) 27.1 - 33.3 pg [facility] MCHC 29.2(L) 32.3 - 35.7 g/dL [facility] RDW CV 18.5(H) 11.1 - 14.9 % [facility] RDW SD 58.4(H) 35.7 - 48.1 fL [facility] NRBC abs 0.00 0.00 - 0.01 K/cumm [facility] Blood 12/06/2023 9:47 PM CDT 12/06/2023 10:24 PM CDT us Maxime Lee MD LAB BLOOD ORDERABLES Final R esult Performing Organization Address City/[facility]/ZIP Co de Phone Number [facility] [place] [address] * Magnesium (12/06/2023 9:47 PM CDT) [facility] Magnesium 1.9 1.4 - 2.5 mg/dL Blood 12/06/2023 9:47 PM CDT 12/06/2023 10:29 PM CDT us Álvaro Radford MD LAB BLOOD ORDERABLES Final Result Performing Organization Address [facility] de Phone Number [facility] [place] [address] * (ABNORMAL) Renal function panel (12/06/2023 9:47 PM CDT) Pathologist [facility] Sodium 136 135 - 145 mmol/L Potassium, pl 4.0 3.3 - 4.9 mmol/L [facility] Chloride 104 97 - 110 mmol/L [facility] CO2 24 22 - 32 mmol/L [facility] Anion gap 8 2 - 15 mmol/L [facility] BUN 11 6 - 25 mg/dL [facility] Creatinine 0.82 0.60 - 1.10 mg/dL [facility] Glucose 158 70 - 199 mg/dL [facility] Comment: Interpretive Data Fasting glucose >/= 126 [...] 2022. Calcium 8.2(L) 8.5 - 10.3 mg/dL [facility] Phosphorus, pl 3.3 2.3 - 4.5 mg/dL [facility] Albumin 2.5(L) 3.5 - 5.0 g/dL [facility] Blood 12/06/2023 9:47 PM CDT 12/06/2023 10:29 PM CDT Álvaro Radford MD LAB BLOOD ORDERABLES Final Result Performing Organization Address [facility] de Phone Number [facility] [place] [address] * POCT glucose (12/06/2023 8:07 PM CDT) Glucose, POC 147 70 - 199 mg/dL Blood 12/06/2023 8:07 PM CDT 12/06/2023 8:07 PM CDT Álvaro Radford MD LAB POCT ORDERABLES - DEVIC E Final Result Performing Organization Address City/[facility] Co de Phone Number [facility] [place] [address] * POCT glucose (12/06/2023 4:57 PM CDT) Glucose, POC 126 70 - 199 mg/dL Blood 12/06/2023 4:57 PM CDT 12/06/2023 4:57 PM CDT us Álvaro Radford MD LAB POCT ORDERABLES - DEVIC E Final Result Performing Organization Address [facility] de Phone Number [facility] [place] [address] * POCT glucose (12/06/2023 11:45 AM CDT) Glucose, POC 168 70 - 199 mg/dL Blood 12/06/2023 11:4 5 AM CDT 12/06/2023 11:45 AM CDT us Álvaro Radford MD LAB POCT ORDERABLES - DEVIC E Final Result Performing Organization Address [facility] de Phone Number [facility] [place] [address] * POCT glucose (12/06/2023 7:59 AM CDT) Glucose, POC 105 70 - 199 mg/dL Blood 12/06/2023 7:59 AM CDT 12/06/2023 7:59 AM CDT us Álvaro Radford MD LAB POCT ORDERABLES - DEVIC E Final Result Performing Organization Address [facility] de Phone Number [facility] [place] [address] * Vancomycin level trough Draw trough 30 minutes prior to 4th dose. (12/06/2023 4:31 AM CDT) Vancomycin trough 14.3 10.0 - 20.0 mcg/mL Blood 12/06/2023 4:31 AM CDT 12/06/2023 4:43 AM CDT Narrative [facility] - 12/06/2023 5:12 AM CDT Draw trough 30 minutes prior to 4th dose. us Álvaro Radford MD LAB BLOOD ORDERABLES Final Result Performing Organization Address [facility] de Phone Number [facility] [place] [address] * ANCA vasculitis panel (12/05/2023 9:24 PM CDT) Myeloperoxidase ab <0.2 <=0.9 Ab Index Comment: Interpretive Data Negative: ??<1 Ab Index Positive: > or = 1 Ab Index Current interpretive data was last revised on 2016. Proteinase 3 ab 0.2 <=0.9 Ab Index [facility] Comment: Interpretive Data Negative: <1 Ab Index Positive: > or = 1 Ab Index Current interpretive data was last revised on 2016. Blood 12/05/2023 9:24 PM CDT 12/05/2023 9:44 PM CDT Álvaro Radford MD LAB BLOOD ORDERABLES Final Result Performing Organization Address [facility] de Phone Number GO [facility] [place] [address] * eGFR (12/05/2023 9:24 PM CDT) eGFR [...] Radford MD LAB BLOOD ORDERABLES Final Result [facility] [place] [address] * (ABNORMAL) Differential, auto (12/05/2023 9:24 PM CDT) Neutrophil abs 8.5(H) 1.5 - 6.5 K/cumm Imm gran abs 0.1 0.0 - 0.1 K/cumm [facility] Lymphocyte abs 2.1 0.8 - 3.3 K/cumm [facility] Monocyte abs 1.0(H) 0.2 - 0.8 K/cumm [facility] Eosinophil abs 0.3 0.0 - 0.5 K/cumm [facility] Basophil abs 0.1 0.0 - 0.1 K/cumm [facility] Neutrophil pct 70.4 % [facility] Comment: Interpretive Data Percent cell count reference ranges are not reported, since discordance with absolute values may lead to misinterpretation of CBC data. Current Interpretive Data was last revised on 2017. Imm gran pct 0.5 % [facility] Comment: Interpretive Data Percent cell count reference ranges are not reported, since discordance with absolute values may lead to misinterpretation of CBC data. Current Interpretive Data was last revised on 2017. Lymphocyte pct 17.6 % [facility] Comment: Interpretive Data Percent cell count reference ranges are not reported, since discordance with absolute values may lead to misinterpretation of CBC data. Current Interpretive Data was last revised on 2017. Monocyte pct 8.2 % [facility] Comment: Interpretive Data Percent cell count reference ranges are not reported, since discordance with absolute values may lead to misinterpretation of CBC data. Current Interpretive Data was last revised on 2017. Eosinophil pct 2.5 % [facility] Comment: Interpretive Data Percent cell count reference ranges are not reported, since discordance with absolute values may lead to misinterpretation of CBC data. Current Interpretive Data was last revised on 2017. Basophil pct 0.8 % [facility] Comment: Interpretive Data Percent cell count reference ranges are not reported, since discordance with absolute values may lead to misinterpretation of CBC data. Current Interpretive Data was last revised on 2017. Blood 12/05/2023 9:24 PM CDT 12/05/2023 10:44 PM CDT us Maxime Lee MD LAB BLOOD ORDERABLES Final R esult [facility] [place] [address] * (ABNORMAL) CBC with auto differential (12/05/2023 9:24 PM CDT) WBC 12.0(H) 3.8 - 9.9 K/cumm Hgb 7.8(L) 11.9 - 15.5 g/dL [facility] Hct 26.0(L) 35.6 - 45.5 % [facility] Plt 446(H) 150 - 400 K/cumm [facility] MPV 8.9(L) 9.1 - 12.3 fL [facility] RBC 3.09(L) 3.90 - 5.20 M/cumm [facility] MCV 84.1 81.3 - 96.4 fL [facility] MCH 25.2(L) 27.1 - 33.3 pg [facility] MCHC 30.0(L) 32.3 - 35.7 g/dL [facility] RDW CV 18.7(H) 11.1 - 14.9 % [facility] RDW SD 57.4(H) 35.7 - 48.1 fL [facility] NRBC abs 0.00 0.00 - 0.01 K/cumm [facility] Blood 12/05/2023 9:24 PM CDT 12/05/2023 10:44 PM CDT Maxime Lee MD LAB BLOOD ORDERABLES Final R esult Performing Organization Address City/[facility]/ZIP Co de Phone Number [facility] [place] [address] * Magnesium (12/05/2023 9:24 PM CDT) [facility] Magnesium 2.0 1.4 - 2.5 mg/dL Blood 12/05/2023 9:24 PM CDT 12/05/2023 10:45 PM CDT us Álvaro Radford MD LAB BLOOD ORDERABLES Final Result Performing Organization Address [facility] de Phone Number [facility] [place] [address] * (ABNORMAL) Renal function panel (12/05/2023 9:24 PM CDT) Pathologist [facility] Sodium 137 135 - 145 mmol/L Potassium, pl 3.8 3.3 - 4.9 mmol/L [facility] Chloride 105 97 - 110 mmol/L [facility] CO2 26 22 - 32 mmol/L [facility] Anion gap 6 2 - 15 mmol/L [facility] BUN 17 6 - 25 mg/dL [facility] Creatinine 0.79 0.60 - 1.10 mg/dL [facility] Glucose 121 70 - 199 mg/dL [facility] Comment: Interpretive Data Fasting glucose >/= 126 [...] 2022. Calcium 8.0(L) 8.5 - 10.3 mg/dL [facility] Phosphorus, pl 3.5 2.3 - 4.5 mg/dL [facility] Albumin 2.4(L) 3.5 - 5.0 g/dL [facility] Blood 12/05/2023 9:24 PM CDT 12/05/2023 10:45 PM CDT us Álvaro Radford MD LAB BLOOD ORDERABLES Final Result Performing Organization Address [facility] Phone Number [facility] [place] [address] * POCT glucose (12/05/2023 8:16 PM CDT) Glucose, POC 151 70 - 199 mg/dL Blood 12/05/2023 8:16 PM CDT 12/05/2023 8:16 PM CDT us Álvaro Radford MD LAB POCT ORDERABLES - DEVIC E Final Result Performing Organization Address [facility] de Phone Number [facility] [place] [address] * POCT glucose (12/05/2023 4:45 PM CDT) Glucose, POC 104 70 - 199 mg/dL Blood 12/05/2023 4:45 PM CDT 12/05/2023 4:45 PM CDT us Álvaro Radford MD LAB POCT ORDERABLES - DEVIC E Final Result Performing Organization Address [facility] de Phone Number [facility] [place] [address] * (ABNORMAL) POCT glucose (12/05/2023 11:44 AM CDT) [facility] Glucose, POC 205(H) 70 - 199 mg/dL Blood 12/05/2023 11:4 4 AM CDT 12/05/2023 11:44 AM CDT Álvaro Radford MD LAB POCT ORDERABLES - DEVIC E Final Result Performing Organization Address [facility] Co de Phone Number [facility] [place] [address] * (ABNORMAL) Troponin I high-sensitivity 2-hour (12/05/2023 11:09 AM CDT) [facility] Trop I hs 373(C) <=17 ng/L Comment: Previous critical value noted within 48 hours ago. Interpretive Data For further hscTnI resources including the diagnostic algorithm and an aid in interpretation, copy and paste this link: https://bjhlab.testcatalog.org/show/hsTrop-1 Current Interpretive Data last revised 2019. Trop I hs pct delta -27(C) % [facility] Comment:Previous critical va lue noted within 48 hours ago. Trop I hs interp Significa nt(C) [facility] Comment:Previous critical va lue noted within 48 hours ago. Blood 12/05/2023 11:0 9 AM CDT 12/05/2023 11:27 AM CDT us Álvaro Radford MD LAB BLOOD ORDERABLES Final Result Performing Organization Address City/[facility] Co de Phone Number [facility] [place] [address] * (ABNORMAL) Differential, auto (12/05/2023 11:09 AM CDT) [facility] Neutrophil abs 9.3(H) 1.5 - 6.5 K/cumm Imm gran abs 0.1 0.0 - 0.1 K/cumm [facility] Lymphocyte abs 1.7 0.8 - 3.3 K/cumm [facility] Monocyte abs 1.0(H) 0.2 - 0.8 K/cumm [facility] Eosinophil abs 0.2 0.0 - 0.5 K/cumm [facility] Basophil abs 0.1 0.0 - 0.1 K/cumm [facility] Neutrophil pct 75.4 % [facility] Comment: Interpretive Data Percent cell count reference ranges are not reported, since discordance with absolute values may lead to misinterpretation of CBC data. Current Interpretive Data was last revised on 2017. Imm gran pct 0.5 % [facility] Comment: Interpretive Data Percent cell count reference ranges are not reported, since discordance with absolute values may lead to misinterpretation of CBC data. Current Interpretive Data was last revised on 2017. Lymphocyte pct 14.1 % [facility] Comment: Interpretive Data Percent cell count reference ranges are not reported, since discordance with absolute values may lead to misinterpretation of CBC data. Current Interpretive Data was last revised on 2017. Monocyte pct 7.8 % [facility] Comment: Interpretive Data Percent cell count reference ranges are not reported, since discordance with absolute values may lead to misinterpretation of CBC data. Current Interpretive Data was last revised on 2017. Eosinophil pct 1.4 % [facility] Comment: Interpretive Data Percent cell count reference ranges are not reported, since discordance with absolute values may lead to misinterpretation of CBC data. Current Interpretive Data was last revised on 2017. Basophil pct 0.8 % [facility] Comment: Interpretive Data Percent cell count reference ranges are not reported, since discordance with absolute values may lead to misinterpretation of CBC data. Current Interpretive Data was last revised on 2017. Blood 12/05/2023 11:0 9 AM CDT 12/05/2023 11:27 AM CDT us Álvaro Radford MD LAB BLOOD ORDERABLES Final Result [facility] [place] [address] * (ABNORMAL) CBC with auto differential (12/05/2023 11:09 AM CDT) Pathologist [facility] WBC 12.3(H) 3.8 - 9.9 K/cumm Hgb 7.6(L) 11.9 - 15.5 g/dL [facility] Hct 25.5(L) 35.6 - 45.5 % [facility] Plt 463(H) 150 - 400 K/cumm [facility] MPV 8.9(L) 9.1 - 12.3 fL [facility] RBC 2.99(L) 3.90 - 5.20 M/cumm [facility] MCV 85.3 81.3 - 96.4 fL [facility] MCH 25.4(L) 27.1 - 33.3 pg [facility] MCHC 29.8(L) 32.3 - 35.7 g/dL [facility] RDW CV 18.6(H) 11.1 - 14.9 % [facility] RDW SD 57.7(H) 35.7 - 48.1 fL [facility] NRBC abs 0.00 0.00 - 0.01 K/cumm [facility] Blood 12/05/2023 11:0 9 AM CDT 12/05/2023 11:27 AM CDT Álvaro Radford MD LAB BLOOD ORDERABLES Final Result [facility] [place] [address] * (ABNORMAL) Troponin I high-sensitivity series (baseline, 2hr, 4hr, 6hr) (12/05/2023 8:56 AM CDT) Pathologist [facility] Trop I hs 509(C) <=17 ng/L Comment: Previous critical value noted within 48 hours ago. Interpretive Data For further hscTnI resources including the diagnostic algorithm and an aid in interpretation, copy and paste this link: https://bjhlab.testcatMaze[employer] Technologies.org/show/hsTrop-[email or web address] Current Interpretive Data last revised 2019. Blood 12/05/2023 8:56 AM CDT 12/05/2023 9:18 AM CDT Álvaro Radford MD LAB BLOOD ORDERABLES Final Result Performing Organization Address [facility] Co de Phone Number [facility] [place] [address] * POCT glucose (12/05/2023 8:02 AM CDT) Glucose, POC 148 70 - 199 mg/dL Blood 12/05/2023 8:02 AM CDT 12/05/2023 8:02 AM CDT Result [facility] Álvaro Radford MD LAB POCT ORDERABLES - DEVIC E Final Result Performing Organization Address [facility] de Phone Number [facility] [place] [address] * (ABNORMAL) Troponin I high-sensitivity 6-hour (12/04/2023 10:19 PM CDT) Trop I hs 1,176(C) <=17 ng/L Comment: Previous critical value noted within 48 hours ago. Interpretive Data For further hscTnI resources including the diagnostic algorithm and an aid in interpretation, copy and paste this link: https://bjhlab.testcatMazeB[email or web address]/show/hsTrop-[email or web address] Current Interpretive Data last revised 2019. Trop I hs delta 1,171(C) ng/L [facility] Comment:Previous critical va lue noted within 48 hours ago. Trop I hs interp Significa nt(C) [facility] Comment:Previous critical va lue noted within 48 hours ago. Blood 12/04/2023 10:1 9 PM CDT 12/04/2023 10:34 PM CDT us Álvaro Radford MD LAB BLOOD ORDERABLES Final Result Performing Organization Address [facility] de Phone Number GO ROBERT Abdullah[facility] [place] [address] * eGFR (12/04/2023 10:19 PM CDT) eGFR [...] BLOOD ORDERABLES Final Result Performing Organization Address [facility] Co de Phone Number CERNER [facility] [place] [address] * Type and screen (12/04/2023 10:19 PM CDT) [facility] ABO Rh O Positive Maira, indirect Negative [facility] Blood 12/04/2023 10:1 9 PM CDT 12/04/2023 10:33 PM CDT Narrative [facility] - 12/04/2023 11:33 PM CDT Has the patient had Daratumumab or Isatuximab in the past 6 months?->Unknown Álvaro Radford MD LAB BLOOD BANK TEST ORDERAB LES Final Result Performing Organization Address City/[facility]/ZIP Co de Phone Number [facility] [place] [address] * Magnesium (12/04/2023 10:19 PM CDT) [facility] Magnesium 2.0 1.4 - 2.5 mg/dL Blood 12/04/2023 10:1 9 PM CDT 12/04/2023 10:34 PM CDT Álvaro Radford MD LAB BLOOD ORDERABLES Final Result Performing Organization Address [facility]/ZIP Co de Phone Number [facility] [place] [address] * (ABNORMAL) Basic metabolic panel (12/04/2023 10:19 PM CDT) [facility] Sodium 137 135 - 145 mmol/L Potassium, pl 4.2 3.3 - 4.9 mmol/L [facility] Chloride 105 97 - 110 mmol/L [facility] CO2 22 22 - 32 mmol/L [facility] Anion gap 10 2 - 15 mmol/L [facility] BUN 18 6 - 25 mg/dL [facility] Creatinine 0.81 0.60 - 1.10 mg/dL [facility] Glucose 197 70 - 199 mg/dL [facility] Comment: Interpretive Data Fasting glucose >/= 126 [...] 2022. Calcium 8.1(L) 8.5 - 10.3 mg/dL [facility] Blood 12/04/2023 10:1 9 PM CDT 12/04/2023 10:34 PM CDT us Álvaro Radford MD LAB BLOOD ORDERABLES Final Result [facility] [place] [address] * (ABNORMAL) Differential, auto (12/04/2023 8:30 PM CDT) Neutrophil abs 22.2(H) 1.5 - 6.5 K/cumm Imm gran abs 0.2(H) 0.0 - 0.1 K/cumm [facility] Lymphocyte abs 0.7(L) 0.8 - 3.3 K/cumm [facility] Monocyte abs 1.1(H) 0.2 - 0.8 K/cumm [facility] Eosinophil abs 0.0 0.0 - 0.5 K/cumm [facility] Basophil abs 0.1 0.0 - 0.1 K/cumm [facility] Neutrophil pct 91.8 % [facility] Comment: Interpretive Data Percent cell count reference ranges are not reported, since discordance with absolute values may lead to misinterpretation of CBC data. Current Interpretive Data was last revised on 2017. Imm gran pct 0.7 % [facility] Comment: Interpretive Data Percent cell count reference ranges are not reported, since discordance with absolute values may lead to misinterpretation of CBC data. Current Interpretive Data was last revised on 2017. Lymphocyte pct 2.8 % [facility] Comment: Interpretive Data Percent cell count reference ranges are not reported, since discordance with absolute values may lead to misinterpretation of CBC data. Current Interpretive Data was last revised on 2017. Monocyte pct 4.4 % [facility] Comment: Interpretive Data Percent cell count reference ranges are not reported, since discordance with absolute values may lead to misinterpretation of CBC data. Current Interpretive Data was last revised on 2017. Eosinophil pct 0.1 % [facility] Comment: Interpretive Data Percent cell count reference ranges are not reported, since discordance with absolute values may lead to misinterpretation of CBC data. Current Interpretive Data was last revised on 2017. Basophil pct 0.2 % [facility] Comment: Interpretive Data Percent cell count reference ranges are not reported, since discordance with absolute values may lead to misinterpretation of CBC data. Current Interpretive Data was last revised on 2017. Blood 12/04/2023 8:30 PM CDT 12/04/2023 5:34 PM CDT us Maxime Lee MD LAB BLOOD ORDERABLES Final R esult [facility] [place] [address] * (ABNORMAL) CBC with auto differential (12/04/2023 8:30 PM CDT) WBC 24.2(H) 3.8 - 9.9 K/cumm Hgb 7.6(L) 11.9 - 15.5 g/dL [facility] Hct 25.3(L) 35.6 - 45.5 % [facility] Plt 483(H) 150 - 400 K/cumm [facility] MPV 8.6(L) 9.1 - 12.3 fL [facility] RBC 2.94(L) 3.90 - 5.20 M/cumm [facility] MCV 86.1 81.3 - 96.4 fL [facility] MCH 25.9(L) 27.1 - 33.3 pg [facility] MCHC 30.0(L) 32.3 - 35.7 g/dL [facility] RDW CV 18.4(H) 11.1 - 14.9 % [facility] RDW SD 58.1(H) 35.7 - 48.1 fL [facility] NRBC abs 0.00 0.00 - 0.01 K/cumm [facility] Blood 12/04/2023 8:30 PM CDT 12/04/2023 5:34 PM CDT us Maxime Lee MD LAB BLOOD ORDERABLES Final R esult Performing Organization Address City/[facility] Co de Phone Number [facility] [place] [address] * (ABNORMAL) Troponin I high-sensitivity 4-hour (12/04/2023 8:14 PM CDT) Trop I hs 1,061(C) <=17 ng/L Comment: Previous critical value noted within 48 hours ago. Interpretive Data For further hscTnI resources including the diagnostic algorithm and an aid in interpretation, copy and paste this link: https://bjhlab.testcatalog.org/show/hsTrop-[email or web address] Current Interpretive Data last revised 2019. Trop I hs delta 1,056(C) ng/L [facility] Trop I hs interp Significa nt(C) [facility] Blood 12/04/2023 8:14 PM CDT 12/04/2023 8:26 PM CDT us Álvaro Radford MD LAB BLOOD ORDERABLES Final Result Performing Organization Address [facility]/ZIP Co de Phone Number [facility] [place] [address] * (ABNORMAL) POCT glucose (12/04/2023 7:55 PM CDT) Glucose, POC 226(H) 70 - 199 mg/dL Blood 12/04/2023 7:55 PM CDT 12/04/2023 7:55 PM CDT Álvaro Radford MD LAB POCT ORDERABLES - DEVIC E Final Result [facility] [place] [address] * (ABNORMAL) Troponin I high-sensitivity 2-hour (12/04/2023 5:58 PM CDT) [facility] Trop I hs 770(C) <=17 ng/L Comment: Interpretive Data For further hscTnI resources including the diagnostic algorithm and an aid in interpretation, copy and paste this link: https://bjab.testcatalog.org/show/hsTrop-[email or web address] Current Interpretive Data last revised 2019. Trop I hs delta 765(C) ng/L [facility] Trop I hs interp Significa nt(C) [facility] Blood 12/04/2023 5:58 PM CDT 12/04/2023 6:10 PM CDT Result [facility] Álvaro Radford MD LAB BLOOD ORDERABLES Final Result Performing Organization Address City/[facility]/ZIP Co de Phone Number [facility] [place] [address] * Lactate (12/04/2023 5:58 PM CDT) [facility] Lactate 1.9 0.7 - 2.0 mmol/L Blood 12/04/2023 5:58 PM CDT 12/04/2023 6:10 PM CDT Álvaro Radford MD LAB BLOOD ORDERABLES Final Result [facility] [place] [address] * Critical result callback Cardio chemistry (12/04/2023 5:58 PM CDT) Date Notified [id number] Time Notified 1848 GO ROBERT Test name Trop I hs 2hr GO ROBERT Called/Read Back Isabell ROBERT Credentials RN GO ROBERT Called By DVB GO ROBRET Blood 12/04/2023 5:58 PM CDT 12/04/2023 6:10 PM CDT us Álvaro Radford MD LAB BLOOD ORDERABLES Final Result [facility] [place] [address] * eGFR (12/04/2023 5:58 PM CDT) Pathologist [facility] eGFR 79 >=60 mL/min/1. 73 m2 Comment: [...] Radford MD LAB BLOOD ORDERABLES Final Result [facility] [place] [address] * (ABNORMAL) Differential, auto (12/04/2023 5:58 PM CDT) Neutrophil abs 21.7(H) 1.5 - 6.5 K/cumm Imm gran abs 0.2(H) 0.0 - 0.1 K/cumm [facility] Lymphocyte abs 0.7(L) 0.8 - 3.3 K/cumm [facility] Monocyte abs 1.2(H) 0.2 - 0.8 K/cumm [facility] Eosinophil abs 0.0 0.0 - 0.5 K/cumm [facility] Basophil abs 0.1 0.0 - 0.1 K/cumm [facility] Neutrophil pct 90.7 % [facility] Comment: Interpretive Data Percent cell count reference ranges are not reported, since discordance with absolute values may lead to misinterpretation of CBC data. Current Interpretive Data was last revised on 2017. Imm gran pct 1.0 % [facility] Comment: Interpretive Data Percent cell count reference ranges are not reported, since discordance with absolute values may lead to misinterpretation of CBC data. Current Interpretive Data was last revised on 2017. Lymphocyte pct 2.9 % [facility] Comment: Interpretive Data Percent cell count reference ranges are not reported, since discordance with absolute values may lead to misinterpretation of CBC data. Current Interpretive Data was last revised on 2017. Monocyte pct 5.0 % [facility] Comment: Interpretive Data Percent cell count reference ranges are not reported, since discordance with absolute values may lead to misinterpretation of CBC data. Current Interpretive Data was last revised on 2017. Eosinophil pct 0.1 % [facility] Comment: Interpretive Data Percent cell count reference ranges are not reported, since discordance with absolute values may lead to misinterpretation of CBC data. Current Interpretive Data was last revised on 2017. Basophil pct 0.3 % [facility] Comment: Interpretive Data Percent cell count reference ranges are not reported, since discordance with absolute values may lead to misinterpretation of CBC data. Current Interpretive Data was last revised on 2017. Blood 12/04/2023 5:58 PM CDT 12/04/2023 6:10 PM CDT us Álvaro Radford MD LAB BLOOD ORDERABLES Final Result [facility] [place] [address] * (ABNORMAL) CBC with auto differential (12/04/2023 5:58 PM CDT) WBC 23.9(H) 3.8 - 9.9 K/cumm Hgb 7.3(L) 11.9 - 15.5 g/dL [facility] Hct 24.4(L) 35.6 - 45.5 % [facility] Plt 477(H) 150 - 400 K/cumm [facility] MPV 8.5(L) 9.1 - 12.3 fL [facility] RBC 2.89(L) 3.90 - 5.20 M/cumm [facility] MCV 84.4 81.3 - 96.4 fL [facility] MCH 25.3(L) 27.1 - 33.3 pg [facility] MCHC 29.9(L) 32.3 - 35.7 g/dL [facility] RDW CV 18.4(H) 11.1 - 14.9 % [facility] RDW SD 55.9(H) 35.7 - 48.1 fL [facility] NRBC abs 0.00 0.00 - 0.01 K/cumm [facility] Blood 12/04/2023 5:58 PM CDT 12/04/2023 6:10 PM CDT Álvaro Radford MD LAB BLOOD ORDERABLES Final Result [facility] [place] [address] * (ABNORMAL) Renal function panel (12/04/2023 5:58 PM CDT) Pathologist [facility] Sodium 136 135 - 145 mmol/L Potassium, pl 4.3 3.3 - 4.9 mmol/L [facility] Chloride 105 97 - 110 mmol/L [facility] CO2 24 22 - 32 mmol/L [facility] Anion gap 7 2 - 15 mmol/L [facility] BUN 19 6 - 25 mg/dL [facility] Creatinine 0.82 0.60 - 1.10 mg/dL [facility] Glucose 197 70 - 199 mg/dL [facility] Comment: Interpretive Data Fasting glucose >/= 126 [...] 2022. Calcium 8.0(L) 8.5 - 10.3 mg/dL [facility] Phosphorus, pl 2.9 2.3 - 4.5 mg/dL [facility] Albumin 2.4(L) 3.5 - 5.0 g/dL [facility] Blood 12/04/2023 5:58 PM CDT 12/04/2023 6:10 PM CDT Álavro Radford MD LAB BLOOD ORDERABLES Final Result GO ROBERT Abdullahi [facility] [place] [address] * Blood culture Blood (12/04/2023 5:25 PM [...] organism identification may be performed using the Simulmediaigene Gram-Positive Blood Culture Assay. This assay detects microbial DNA in positive blood culture broth via hybridization of target DNA to capture oligonucleotides on a microarray. This assay has been cleared by the [place] Food and Drug Administration and its performance characteristics have been verified by the [facility]biology [facility]. 5. ?For questions about this culture, contact the Microbiology Laboratory at [phone]. Interpretive data was last revised on 2019. Álvaro Radford MD LAB MICROBIOLOGY - GENERAL ORDERABLES Final Result Performing Organization Address City/[facility]/ZIP Co de Phone Number GO ROBERT Abudllahi [facility] [place] [address] * eGFR (12/04/2023 5:24 PM CDT) eGFR [...] MD LAB BLOOD ORDERABLES Final Result [facility] Department of Laboratories [place], [place] [id number] * Magnesium (12/04/2023 5:24 PM CDT) Magnesium 2.5 1.4 - 2.5 mg/dL Blood 12/04/2023 5:24 PM CDT 12/04/2023 5:34 PM CDT us Álvaro Radford MD LAB BLOOD ORDERABLES Final Result GO ROBERT [facility] [place] [address] * (ABNORMAL) Lipid panel (12/04/2023 5:24 PM CDT) [facility] Cholesterol 71 30 - 199 mg/dL Comment: [...] on 2017. HDL 27(L) >=40 mg/dL [facility] Comment: Interpretive Data Ages < or = [...] on 2017. LDL, calculated 28 <=129 mg/dL GO ROBERT Comment: Interpretive Data Ages < or = [...] revised on 2023. Non-HDL Cholesterol 44 mg/dL [facility] Comment: Interpretive Data Ages < or = [...] last revised on 2017. Chol/HDL ratio 3 [facility] Blood 12/04/2023 5:24 PM CDT 12/04/2023 5:34 PM CDT Narrative [facility] - 12/04/2023 7:03 PM CDT This lipid panel was automatically ordered due to a significant change in Troponin. The dietary status of the patient at the collection time should be correlated with the lipid results. us Álvaro Radford MD LAB BLOOD ORDERABLES Final Result [facility] [place] [address] * (ABNORMAL) Comprehensive metabolic panel (12/04/2023 5:24 PM CDT) Sodium 135 135 - 145 mmol/L Potassium, pl 4.4 3.3 - 4.9 mmol/L [facility] Chloride 102 97 - 110 mmol/L [facility] CO2 23 22 - 32 mmol/L [facility] Anion gap 10 2 - 15 mmol/L [facility] BUN 18 6 - 25 mg/dL [facility] Creatinine 0.83 0.60 - 1.10 mg/dL [facility] Glucose 186 70 - 199 mg/dL [facility] Comment: Interpretive Data Fasting glucose >/= 126 [...] Calcium 8.1(L) 8.5 - 10.3 mg/dL [facility] Bilirubin, total 0.3 0.1 - 1.2 mg/dL [facility] Protein, pl 6.8 6.5 - 8.5 g/dL [facility] Albumin 2.5(L) 3.5 - 5.0 g/dL [facility] Alk phos 82 40 - 130 Units/L [facility] ALT 8 7 - 45 Units/L [facility] AST 22 10 - 45 Units/L [facility] Blood 12/04/2023 5:24 PM CDT 12/04/2023 5:34 PM CDT us Álvaro Radford MD LAB BLOOD ORDERABLES Final Result Performing Organization Address City/[facility]/ZIP Co de Phone Number [facility] [place] [employer] [place] [address] * POCT lactate (12/04/2023 5:19 PM CDT) [facility] Lactate POC i-STAT 1.7 0.7 - 2.2 mmol/L Blood 12/04/2023 5:19 PM CDT 12/04/2023 5:19 PM CDT Álvaro Radford MD LAB POCT ORDERABLES - DEVIC E Final Result [facility] [place] [address] * XR Chest 1 View (12/04/2023 4:55 [...] 4:02 PM CDT 12/04/2023 4:26 PM CDT Álvaro Radford MD LAB BLOOD ORDERABLES Final Result [facility] [place] [address] * (ABNORMAL) Differential, auto (12/04/2023 4:02 PM CDT) Neutrophil abs 19.2(H) 1.5 - 6.5 K/cumm Imm gran abs 0.2(H) 0.0 - 0.1 K/cumm [facility] Lymphocyte abs 4.0(H) 0.8 - 3.3 K[facility] Monocyte abs 0.6 0.2 - 0.8 K/cumm [facility] Eosinophil abs 0.1 0.0 - 0.5 K/cumm [facility] Basophil abs 0.1 0.0 - 0.1 K/cumm [facility] Neutrophil pct 79.6 % [facility] Comment: Interpretive Data Percent cell count reference ranges are not reported, since discordance with absolute values may lead to misinterpretation of CBC data. Current Interpretive Data was last revised on 2017. Imm gran pct 0.6 % [facility] Comment: Interpretive Data Percent cell count reference ranges are not reported, since discordance with absolute values may lead to misinterpretation of CBC data. Current Interpretive Data was last revised on 2017. Lymphocyte pct 16.6 % [facility] Comment: Interpretive Data Percent cell count reference ranges are not reported, since discordance with absolute values may lead to misinterpretation of CBC data. Current Interpretive Data was last revised on 2017. Monocyte pct 2.5 % [facility] Comment: Interpretive Data Percent cell count reference ranges are not reported, since discordance with absolute values may lead to misinterpretation of CBC data. Current Interpretive Data was last revised on 2017. Eosinophil pct 0.3 % [facility] Comment: Interpretive Data Percent cell count reference ranges are not reported, since discordance with absolute values may lead to misinterpretation of CBC data. Current Interpretive Data was last revised on 2017. Basophil pct 0.4 % [facility] Comment: Interpretive Data Percent cell count reference ranges are not reported, since discordance with absolute values may lead to misinterpretation of CBC data. Current Interpretive Data was last revised on 2017. Blood 12/04/2023 4:02 PM CDT 12/04/2023 4:26 PM CDT us Álvaro Radford MD LAB BLOOD ORDERABLES Final Result [facility] [place] [address] * (ABNORMAL) CBC with auto differential (12/04/2023 4:02 PM CDT) WBC 24.1(H) 3.8 - 9.9 K/cumm Hgb 9.8(L) 11.9 - 15.5 g/dL [facility] Hct 33.2(L) 35.6 - 45.5 % [facility] Plt 760(H) 150 - 400 K/cumm [facility] MPV 9.3 9.1 - 12.3 fL [facility] RBC 3.87(L) 3.90 - 5.20 M/cumm [facility] MCV 85.8 81.3 - 96.4 fL [facility] MCH 25.3(L) 27.1 - 33.3 pg [facility] MCHC 29.5(L) 32.3 - 35.7 g/dL [facility] RDW CV 18.6(H) 11.1 - 14.9 % [facility] RDW SD 58.0(H) 35.7 - 48.1 fL [facility] NRBC abs 0.00 0.00 - 0.01 K/cumm [facility] Blood 12/04/2023 4:02 PM CDT 12/04/2023 4:26 PM CDT us Álvaro Radford MD LAB BLOOD ORDERABLES Final Result Performing Organization Address City/[facility]/ZIP Co de Phone Number GO Fernando [facility] [place] [address] * eGFR (12/04/2023 4:01 PM CDT) eGFR [...] BLOOD ORDERABLES Final Result Performing Organization Address [facility]/ZIP Co de Phone Number GO Fernando [facility] [place] [address] * Blood culture Blood (12/04/2023 4:01 PM [...] organism identification may be performed using the Simulmediaigene Gram-Positive Blood Culture Assay. This assay detects microbial DNA in positive blood culture broth via hybridization of target DNA to capture oligonucleotides on a microarray. This assay has been cleared by the [place] Food and Drug Administration and its performance characteristics have been verified by the [facility]. 5. ?For questions about this culture, contact the Microbiology Laboratory at [phone]. Interpretive data was last revised on 2019. us Álvaro Radford MD LAB MICROBIOLOGY - GENERAL ORDERABLES Final Result GO ROBERT [facility] [place] [address] * Lipase (12/04/2023 4:01 PM CDT) Lipase 87 10 - 99 Units/L Blood 12/04/2023 4:01 PM CDT 12/04/2023 4:26 PM CDT Álvaro Radford MD LAB BLOOD ORDERABLES Final Result Performing Organization Address [facility] Co de Phone Number [facility] [place] [address] * (ABNORMAL) Blood gas, venous (12/04/2023 4:01 PM CDT) pH, Venous 7.30(L) 7.32 - 7.43 PCO2, Venous 48 40 - 50 mmHg [facility] PO2, Venous 35 mmHg [facility] Comment: Interpretive Data No Reference Range Established Current Interpretive Data was last revised on 2017. HCO3 Venous, Calculated 25 20 - 30 mmol/L [facility] BE, venous -3 mmol/L [facility] Comment: Interpretive Data No Reference Range Established Current Interpretive Data was last revised on 2017. Blood 12/04/2023 4:01 PM CDT 12/04/2023 4:18 PM CDT Álvaro Radford MD LAB BLOOD ORDERABLES Final Result Performing Organization Address [facility] de Phone Number [facility] [place] [address] * (ABNORMAL) Comprehensive metabolic panel (12/04/2023 4:01 PM CDT) Sodium 136 135 - 145 mmol/L Potassium, pl 4.9 3.3 - 4.9 mmol/L [facility] Comment:Hemolyzed; Potassium value may be falsely elevated by as much as 0.3-0.5 mmol/L. Suggest redraw and reanalysis. Chloride 100 97 - 110 mmol/L [facility] CO2 22 22 - 32 mmol/L [facility] Anion gap 14 2 - 15 mmol/L [facility] BUN 19 6 - 25 mg/dL [facility] Creatinine 0.86 0.60 - 1.10 mg/dL [facility] Glucose 188 70 - 199 mg/dL [facility] Comment: Interpretive Data Fasting glucose >/= 126 [...] 2022. Calcium 9.1 8.5 - 10.3 mg/dL [facility] Bilirubin, total 0.3 0.1 - 1.2 mg/dL [facility] Protein, pl 8.4 6.5 - 8.5 g/dL [facility] Albumin 3.0(L) 3.5 - 5.0 g/dL [facility] Alk phos 102 40 - 130 Units/L [facility] ALT 11 7 - 45 Units/L [facility] AST 35 10 - 45 Units/L [facility] Comment:Hemolyzed; result ma y be falsely elevated Blood 12/04/2023 4:01 PM CDT 12/04/2023 4:26 PM CDT Álvaro Radford MD LAB BLOOD ORDERABLES Final Result Performing Organization Address City/State/[facility] Co de Phone Number [facility] [place] [address] * POCT glucose (12/04/2023 3:30 PM CDT) [facility] Glucose, POC 192 70 - 199 mg/dL Blood 12/04/2023 3:30 PM CDT 12/04/2023 3:30 PM CDT Álvaro Radford MD LAB POCT ORDERABLES - DEVIC E Final Result [facility] Abdullah[facility] [place] [address] * POCT glucose (12/04/2023 11:36 AM CDT) Glucose, POC 146 70 - 199 mg/dL Blood 12/04/2023 11:3 6 AM CDT 12/04/2023 11:36 AM CDT us Álvaro Radford MD LAB POCT ORDERABLES - DEVIC E Final Result Performing Organization Address [facility] Co de Phone Number GO ROBERT Abdullahi [facility] [place] [address] * PET/CT FDG Skull to Thigh (12/04/2023 [...] FDG-PET/CT IMAGING DATE OF STUDY: ??12/04/2023 SCANNER: [facility] N Laura [employer]apiens (NV1). ??This is a high-resolution scanner, which [...] obtained. ??The study was interpreted on the iPositioning workstation. ??The mean liver SUV (reported for manager of quality purposes) is 1.5 The total scanned area [...] FDG-PET/CT IMAGING DATE OF STUDY: 12/04/2023 SCANNER: [facility] Laura [employer]apiens (NV1). This is a high-resolution scanner, which [...] obtained. The study was interpreted on the [employer] workstation. The mean liver SUV (reported for manager of quality purposes) is 1.5 The total scanned area [...] POCT ORDERABLES - DEVIC E Final Result [facility] [place] [address] * (ABNORMAL) Differential, auto (12/04/2023 12:19 AM [...] [facility] Neutrophil pct 70.8 % [facility] Comment: Interpretive Data Percent cell count reference ranges are not reported, since discordance with absolute values may lead to misinterpretation of CBC data. Current Interpretive Data was last revised on 2017. Imm gran pct 0.8 % [facility] Comment: Interpretive Data Percent cell count reference ranges are not reported, since discordance with absolute values may lead to misinterpretation of CBC data. Current Interpretive Data was last revised on 2017. Lymphocyte pct 18.0 % [facility] Comment: Interpretive Data Percent cell count reference ranges are not reported, since discordance with absolute values may lead to misinterpretation of CBC data. Current Interpretive Data was last revised on 2017. Monocyte pct 8.2 % [facility] Comment: Interpretive Data Percent cell count reference ranges are not reported, since discordance with absolute values may lead to misinterpretation of CBC data. Current Interpretive Data was last revised on 2017. Eosinophil pct 1.6 % [facility] Comment: Interpretive Data Percent cell count reference ranges are not reported, since discordance with absolute values may lead to misinterpretation of CBC data. Current Interpretive Data was last revised on 2017. Basophil pct 0.6 % [facility] Comment: Interpretive Data Percent cell count reference ranges are not reported, since discordance with absolute values may lead to misinterpretation of CBC data. Current Interpretive Data was last revised on 2017. Blood 12/04/2023 12:1 9 AM CDT 12/04/2023 1:01 AM CDT us Maxime Lee MD LAB BLOOD ORDERABLES Final R esult [facility] [place] [address] * (ABNORMAL) CBC with auto differential (12/04/2023 12:19 AM CDT) [facility] WBC 12.6(H) 3.8 - 9.9 K/cumm Hgb 7.9(L) 11.9 - 15.5 g/dL [facility] Hct 25.9(L) 35.6 - 45.5 % [facility] Plt 478(H) 150 - 400 K/cumm [facility] MPV 8.9(L) 9.1 - 12.3 fL [facility] RBC 3.12(L) 3.90 - 5.20 M/cumm [facility] MCV 83.0 81.3 - 96.4 fL [facility] MCH 25.3(L) 27.1 - 33.3 pg [facility] MCHC 30.5(L) 32.3 - 35.7 g/dL [facility] RDW CV 18.4(H) 11.1 - 14.9 % [facility] RDW SD 55.4(H) 35.7 - 48.1 fL [facility] NRBC abs 0.00 0.00 - 0.01 K/cumm [facility] Blood 12/04/2023 12:1 9 AM CDT 12/04/2023 1:01 AM CDT us Maxime Lee MD LAB BLOOD ORDERABLES Final R esult [facility] [place] [address] * POCT glucose (12/03/2023 8:52 PM CDT) Glucose, POC 166 70 - 199 mg/dL Blood 12/03/2023 8:52 PM CDT 12/03/2023 8:52 PM CDT Álvaro Radford MD LAB POCT ORDERABLES - DEVIC E Final Result Performing Organization Address [facility] de Phone Number [facility] [place] [employer] [address] * POCT glucose (12/03/2023 4:55 PM CDT) Glucose, POC 146 70 - 199 mg/dL Blood 12/03/2023 4:55 PM CDT 12/03/2023 4:55 PM CDT Álvaro Radford MD LAB POCT ORDERABLES - DEVIC E Final Result Performing Organization Address [facility] de Phone Number [facility] [place] [address] * (ABNORMAL) POCT glucose (12/03/2023 11:28 AM CDT) Glucose, POC 244(H) 70 - 199 mg/dL Blood 12/03/2023 11:2 8 AM CDT 12/03/2023 11:28 AM CDT Álvaro Radford MD LAB POCT ORDERABLES - DEVIC E Final Result Performing Organization Address City/[facility] [place] [address] * POCT glucose (12/03/2023 8:48 AM CDT) Glucose, POC 145 70 - 199 mg/dL Blood 12/03/2023 8:48 AM CDT 12/03/2023 8:48 AM CDT us Álvaro Radford MD LAB POCT ORDERABLES - DEVIC E Final Result Performing Organization Address [facility] Co de Phone Number GO ROBERT Abdullahi [facility] [place] [address] * eGFR (12/03/2023 12:09 AM CDT) eGFR [...] ORDERABLES Final Resul t Performing Organization Address [facility] Co de Phone Number GO ROBERT Abdullahi [facility] Department of [employer] [place], [place] [id number] * (ABNORMAL) Differential, auto (12/03/2023 12:09 AM [...] [facility] Neutrophil pct 70.1 % [facility] Comment: Interpretive Data Percent cell count reference ranges are not reported, since discordance with absolute values may lead to misinterpretation of CBC data. Current Interpretive Data was last revised on 2017. Imm gran pct 0.6 % [facility] Comment: Interpretive Data Percent cell count reference ranges are not reported, since discordance with absolute values may lead to misinterpretation of CBC data. Current Interpretive Data was last revised on 2017. Lymphocyte pct 20.1 % [facility] Comment: Interpretive Data Percent cell count reference ranges are not reported, since discordance with absolute values may lead to misinterpretation of CBC data. Current Interpretive Data was last revised on 2017. Monocyte pct 7.2 % [facility] Comment: Interpretive Data Percent cell count reference ranges are not reported, since discordance with absolute values may lead to misinterpretation of CBC data. Current Interpretive Data was last revised on 2017. Eosinophil pct 1.4 % [facility] Comment: Interpretive Data Percent cell count reference ranges are not reported, since discordance with absolute values may lead to misinterpretation of CBC data. Current Interpretive Data was last revised on 2017. Basophil pct 0.6 % [facility] Comment: Interpretive Data Percent cell count reference ranges are not reported, since discordance with absolute values may lead to misinterpretation of CBC data. Current Interpretive Data was last revised on 2017. Blood 12/03/2023 12:0 9 AM CDT 12/03/2023 12:27 AM CDT us Maxime Lee MD LAB BLOOD ORDERABLES Final R esult [facility] [place] [address] * (ABNORMAL) CBC with auto differential (12/03/2023 12:09 AM CDT) Pathologist [facility] WBC 12.5(H) 3.8 - 9.9 K/cumm Hgb 8.3(L) 11.9 - 15.5 g/dL [facility] Hct 28.2(L) 35.6 - 45.5 % [facility] Plt 481(H) 150 - 400 K/cumm [facility] MPV 9.3 9.1 - 12.3 fL [facility] RBC 3.30(L) 3.90 - 5.20 M/cumm [facility] MCV 85.5 81.3 - 96.4 fL [facility] MCH 25.2(L) 27.1 - 33.3 pg [facility] MCHC 29.4(L) 32.3 - 35.7 g/dL [facility] RDW CV 18.4(H) 11.1 - 14.9 % [facility] RDW SD 57.8(H) 35.7 - 48.1 fL [facility] NRBC abs 0.00 0.00 - 0.01 K/cumm [facility] Blood 12/03/2023 12:0 9 AM CDT 12/03/2023 12:27 AM CDT us Maxime Lee MD LAB BLOOD ORDERABLES Final R esult [facility] [place] [address] * Folate (12/03/2023 12:09 AM CDT) Pathologist [facility] Folic acid 18.0 >=5.0 ng/mL Blood 12/03/2023 12:0 9 AM CDT 12/03/2023 12:27 AM CDT Álvaro Radford MD LAB BLOOD ORDERABLES Final Result Performing Organization Address City/[facility] Co de Phone Number [facility] [place] [address] * Vitamin B12 (12/03/2023 12:09 AM CDT) [facility] Vitamin B12 1,114 230 - 1,250 pg/mL Blood 12/03/2023 12:0 9 AM CDT 12/03/2023 12:27 AM CDT Álvaro Radford MD LAB BLOOD ORDERABLES Final Result Performing Organization Address [facility] de Phone Number [facility] [place] [address] * (ABNORMAL) Renal function panel (12/03/2023 12:09 AM CDT) [facility] Sodium 134(L) 135 - 145 mmol/L Potassium, pl 4.3 3.3 - 4.9 mmol/L [facility] Chloride 100 97 - 110 mmol/L [facility] CO2 26 22 - 32 mmol/L [facility] Anion gap 8 2 - 15 mmol/L [facility] BUN 16 6 - 25 mg/dL [facility] Creatinine 0.77 0.60 - 1.10 mg/dL [facility] Glucose 140 70 - 199 mg/dL [facility] Comment: Interpretive Data Fasting glucose >/= 126 [...] 2022. Calcium 8.6 8.5 - 10.3 mg/dL [facility] Phosphorus, pl 3.3 2.3 - 4.5 mg/dL [facility] Albumin 2.7(L) 3.5 - 5.0 g/dL [facility] Blood 12/03/2023 12:0 9 AM CDT 12/03/2023 12:27 AM CDT us Suhail Alfredo MD LAB BLOOD ORDERABLES Final Resul t Performing Organization Address [facility] Co de Phone Number [facility] [place] [place] [address] * (ABNORMAL) POCT glucose (12/02/2023 8:47 PM CDT) Glucose, POC 216(H) 70 - 199 mg/dL Comment:Glu2: RN/MD Notified Glucose comment 1 Glu2: RN/MD Notified [facility] Blood 12/02/2023 8:47 PM CDT 12/02/2023 8:47 PM CDT us Álvaro Radford MD LAB POCT ORDERABLES - DEVIC E Final Result Performing Organization Address [facility] Co de Phone Number [facility] [place] [address] * POCT glucose (12/02/2023 4:47 PM CDT) Glucose, POC 174 70 - 199 mg/dL Blood 12/02/2023 4:47 PM CDT 12/02/2023 4:47 PM CDT Álvaro Radford MD LAB POCT ORDERABLES - DEVIC E Final Result Performing Organization Address City/[facility] Co de Phone Number [facility] [place] [address] * POCT glucose (12/02/2023 1:15 PM CDT) Glucose, POC 133 70 - 199 mg/dL Blood 12/02/2023 1:15 PM CDT 12/02/2023 1:15 PM CDT Álvaro Radford MD LAB POCT ORDERABLES - DEVIC E Final Result [facility] [place] [address] * POCT glucose (12/02/2023 12:07 PM CDT) Glucose, POC 196 70 - 199 mg/dL Blood 12/02/2023 12:0 7 PM CDT 12/02/2023 12:07 PM CDT Álvaro Radford MD LAB POCT ORDERABLES - [place] [address] * BLOOD MISC TO LOGAN (12/02/2023 9:42 AM CDT) Test name, chem SFUNG, Fungitell, Serum [facility] Misc See Comment [facility] Comment:Credited, test not i ndicated. Blood 12/02/2023 9:42 AM CDT 12/03/2023 11:51 AM CDT Álvaro Radford MD LAB BLOOD ORDERABLES Final Result [facility] [place] [address] [facility] * POCT glucose (12/02/2023 8:19 AM CDT) Glucose, POC 137 70 - 199 mg/dL Blood 12/02/2023 8:19 AM CDT 12/02/2023 8:19 AM CDT us Álvaro Radford MD LAB POCT ORDERABLES - DEVIC E Final Result Performing Organization Address City/State/[facility] Co pr Phone Number [facility] [place] [address] * eGFR (12/01/2023 9:46 PM CDT) eGFR [...] data was last reviewed 2020. Blood 12/01/2023 9:4 6 PM CDT 12/01/2023 10:07 PM CDT us Suhail Alfredo MD LAB BLOOD ORDERABLES Final Resul t [facility] [place] [address] * (ABNORMAL) Differential, auto (12/01/2023 9:46 PM CDT) Neutrophil abs 10.2(H) 1.5 - 6.5 K/cumm Imm gran abs 0.1 0.0 - 0.1 K/cumm [facility] Lymphocyte abs 1.9 0.8 - 3.3 K/cumm [facility] Monocyte abs 0.9(H) 0.2 - 0.8 K/cumm [facility] Eosinophil abs 0.2 0.0 - 0.5 K/cumm [facility] Basophil abs 0.1 0.0 - 0.1 K/cumm [facility] Neutrophil pct 76.4 % [facility] Comment: Interpretive Data Percent cell count reference ranges are not reported, since discordance with absolute values may lead to misinterpretation of CBC data. Current Interpretive Data was last revised on 2017. Imm gran pct 0.7 % [facility] Comment: Interpretive Data Percent cell count reference ranges are not reported, since discordance with absolute values may lead to misinterpretation of CBC data. Current Interpretive Data was last revised on 2017. Lymphocyte pct 14.2 % [facility] Comment: Interpretive Data Percent cell count reference ranges are not reported, since discordance with absolute values may lead to misinterpretation of CBC data. Current Interpretive Data was last revised on 2017. Monocyte pct 6.9 % [facility] Comment: Interpretive Data Percent cell count reference ranges are not reported, since discordance with absolute values may lead to misinterpretation of CBC data. Current Interpretive Data was last revised on 2017. Eosinophil pct 1.4 % [facility] Comment: Interpretive Data Percent cell count reference ranges are not reported, since discordance with absolute values may lead to misinterpretation of CBC data. Current Interpretive Data was last revised on 2017. Basophil pct 0.4 % [facility] Comment: Interpretive Data Percent cell count reference ranges are not reported, since discordance with absolute values may lead to misinterpretation of CBC data. Current Interpretive Data was last revised on 2017. Blood 12/01/2023 9:46 PM CDT 12/01/2023 10:07 PM CDT us Maxime Lee MD LAB BLOOD ORDERABLES Final R esult [facility] [place] [address] * (ABNORMAL) CBC with auto differential (12/01/2023 9:46 PM CDT) WBC 13.4(H) 3.8 - 9.9 K/cumm Hgb 8.4(L) 11.9 - 15.5 g/dL [facility] Hct 27.3(L) 35.6 - 45.5 % [facility] Plt 519(H) 150 - 400 K/cumm [facility] MPV 8.6(L) 9.1 - 12.3 fL [facility] RBC 3.26(L) 3.90 - 5.20 M/cumm [facility] MCV 83.7 81.3 - 96.4 fL [facility] MCH 25.8(L) 27.1 - 33.3 pg [facility] MCHC 30.8(L) 32.3 - 35.7 g/dL [facility] RDW CV 18.2(H) 11.1 - 14.9 % [facility] RDW SD 55.2(H) 35.7 - 48.1 fL [facility] NRBC abs 0.00 0.00 - 0.01 K/cumm [facility] Blood 12/01/2023 9:46 PM CDT 12/01/2023 10:07 PM CDT us Maxime Lee MD LAB BLOOD ORDERABLES Final R esult [facility] [place] [address] * (ABNORMAL) Renal function panel (12/01/2023 9:46 PM CDT) Pathologist [facility] Sodium 134(L) 135 - 145 mmol/L Potassium, pl 4.3 3.3 - 4.9 mmol/L [facility] Chloride 100 97 - 110 mmol/L [facility] CO2 25 22 - 32 mmol/L [facility] Anion gap 9 2 - 15 mmol/L [facility] BUN 13 6 - 25 mg/dL [facility] Creatinine 0.78 0.60 - 1.10 mg/dL [facility] Glucose 168 70 - 199 mg/dL [facility] Comment: Interpretive Data Fasting glucose >/= 126 [...] 2022. Calcium 8.5 8.5 - 10.3 mg/dL [facility] Phosphorus, pl 3.0 2.3 - 4.5 mg/dL [facility] Albumin 2.6(L) 3.5 - 5.0 g/dL [facility] Blood 12/01/2023 9:46 PM CDT 12/01/2023 10:07 PM CDT us Suhail Alfredo MD LAB BLOOD ORDERABLES Final Resul t [facility] [place] [address] * (ABNORMAL) POCT glucose (12/01/2023 8:26 PM CDT) Pathologist [facility] Glucose, POC 213(H) 70 - 199 mg/dL Blood 12/01/2023 8:26 PM CDT 12/01/2023 8:26 PM CDT us Álvaro Radford MD LAB POCT ORDERABLES - DEVIC E Final Result Performing Organization Address [facility] de Phone Number [facility] [place] [employer] [place] [address] * POCT glucose (12/01/2023 4:04 PM CDT) Glucose, POC 152 70 - 199 mg/dL Blood 12/01/2023 4:04 PM CDT 12/01/2023 4:04 PM CDT us Álvaro Radford MD LAB POCT ORDERABLES - DEVIC E Final Result Performing Organization Address [facility] de Phone Number [facility] [place] [address] * (ABNORMAL) POCT glucose (12/01/2023 12:02 PM CDT) Glucose, POC 200(H) 70 - 199 mg/dL Blood 12/01/2023 12:0 2 PM CDT 12/01/2023 12:02 PM CDT us Álvaro Radford MD LAB POCT ORDERABLES - DEVIC E Final Result Performing Organization Address [facility] de Phone Number [facility] [place] [address] * POCT glucose (12/01/2023 8:27 AM CDT) Glucose, POC 124 70 - 199 mg/dL Blood 12/01/2023 8:27 AM CDT 12/01/2023 8:27 AM CDT us Álvaro Radford MD LAB POCT ORDERABLES - DEVIC E Final Result Performing Organization Address [facility] Co de Phone Number [facility] [place] [address] * eGFR (11/30/2023 10:55 PM CDT) eGFR [...] ORDERABLES Final R esult Performing Organization Address [facility] Co de Phone Number [facility] [place] [address] * (ABNORMAL) Differential, auto (11/30/2023 10:55 PM CDT) Neutrophil abs 13.8(H) 1.5 - 6.5 K/cumm Imm gran abs 0.1 0.0 - 0.1 K/cumm [facility] Lymphocyte abs 2.0 0.8 - 3.3 K/cumm [facility] Monocyte abs 1.1(H) 0.2 - 0.8 K/cumm [facility] Eosinophil abs 0.1 0.0 - 0.5 K/cumm [facility] Basophil abs 0.1 0.0 - 0.1 K/cumm [facility] Neutrophil pct 80.4 % [facility] Comment: Interpretive Data Percent cell count reference ranges are not reported, since discordance with absolute values may lead to misinterpretation of CBC data. Current Interpretive Data was last revised on 2017. Imm gran pct 0.6 % [facility] Comment: Interpretive Data Percent cell count reference ranges are not reported, since discordance with absolute values may lead to misinterpretation of CBC data. Current Interpretive Data was last revised on 2017. Lymphocyte pct 11.5 % [facility] Comment: Interpretive Data Percent cell count reference ranges are not reported, since discordance with absolute values may lead to misinterpretation of CBC data. Current Interpretive Data was last revised on 2017. Monocyte pct 6.4 % [facility] Comment: Interpretive Data Percent cell count reference ranges are not reported, since discordance with absolute values may lead to misinterpretation of CBC data. Current Interpretive Data was last revised on 2017. Eosinophil pct 0.8 % [facility] Comment: Interpretive Data Percent cell count reference ranges are not reported, since discordance with absolute values may lead to misinterpretation of CBC data. Current Interpretive Data was last revised on 2017. Basophil pct 0.3 % [facility] Comment: Interpretive Data Percent cell count reference ranges are not reported, since discordance with absolute values may lead to misinterpretation of CBC data. Current Interpretive Data was last revised on 2017. Blood 11/30/2023 10:5 5 PM CDT 12/01/2023 12:13 AM CDT us Maxime Lee MD LAB BLOOD ORDERABLES Final R esult [facility] [place] [address] * Thyroid Function [place] (11/30/2023 10:55 PM CDT) [facility] TSH 2.09 0.30 - 4.20 mcIUnit/mL Blood 11/30/2023 10:5 5 PM CDT 12/01/2023 12:14 AM CDT us Suhail Alfredo MD LAB BLOOD ORDERABLES Final Resul t Performing Organization Address [facility] Co de Phone Number [facility] [place] [address] * (ABNORMAL) CBC with auto differential (11/30/2023 10:55 PM CDT) [facility] WBC 17.2(H) 3.8 - 9.9 K/cumm Hgb 8.3(L) 11.9 - 15.5 g/dL [facility] Hct 27.5(L) 35.6 - 45.5 % [facility] Plt 382 150 - 400 K/cumm [facility] MPV 9.4 9.1 - 12.3 fL [facility] RBC 3.27(L) 3.90 - 5.20 M/cumm [facility] MCV 84.1 81.3 - 96.4 fL [facility] MCH 25.4(L) 27.1 - 33.3 pg [facility] MCHC 30.2(L) 32.3 - 35.7 g/dL [facility] RDW CV 18.3(H) 11.1 - 14.9 % [facility] RDW SD 56.6(H) 35.7 - 48.1 fL [facility] NRBC abs 0.00 0.00 - 0.01 K/cumm [facility] Blood 11/30/2023 10:5 5 PM CDT 12/01/2023 12:13 AM CDT us Maxime Lee MD LAB BLOOD ORDERABLES Final R esult Performing Organization Address [facility] Co de Phone Number [facility] [place] [address] * Vitamin D 25 hydroxy (11/30/2023 10:55 PM CDT) Vitamin D 25-OH 39 30 - 80 ng/mL Blood 11/30/2023 10:5 5 PM CDT 12/01/2023 12:14 AM CDT us Suhail Alfredo MD LAB BLOOD ORDERABLES Final Resul t Performing Organization Address [facility] de Phone Number [facility] [place] [address] * Phosphorus (11/30/2023 10:55 PM CDT) Phosphorus, pl 3.0 2.3 - 4.5 mg/dL Blood 11/30/2023 10:5 5 PM CDT 12/01/2023 12:14 AM CDT us Maxime Lee MD LAB BLOOD ORDERABLES Final R esult Performing Organization Address [facility] Co de Phone Number [facility] [place] [address] * Magnesium (11/30/2023 10:55 PM CDT) Magnesium 1.8 1.4 - 2.5 mg/dL Blood 11/30/2023 10:5 5 PM CDT 12/01/2023 12:14 AM CDT us Maxime Lee MD LAB BLOOD ORDERABLES Final R esult Performing Organization Address [facility] de Phone Number [facility] [place] [address] * (ABNORMAL) Hepatic function panel (11/30/2023 10:55 PM CDT) Pathologist [facility] Bilirubin, total 0.3 0.1 - 1.2 mg/dL Bilirubin, direct <0.2 0.1 - 0.3 mg/dL [facility] Protein, pl 7.1 6.5 - 8.5 g/dL [facility] Albumin 2.5(L) 3.5 - 5.0 g/dL [facility] Alk phos 78 40 - 130 Units/L [facility] ALT 6(L) 7 - 45 Units/L [facility] AST 16 10 - 45 Units/L [facility] Blood 11/30/2023 10:5 5 PM CDT 12/01/2023 12:14 AM CDT Suhail Alfredo MD LAB BLOOD ORDERABLES Final Resul t Performing Organization Address [facility] de Phone Number [facility] [place] [address] * (ABNORMAL) Basic metabolic panel (11/30/2023 10:55 PM CDT) Pathologist [facility] Sodium 135 135 - 145 mmol/L Potassium, pl 3.9 3.3 - 4.9 mmol/L [facility] Chloride 100 97 - 110 mmol/L [facility] CO2 25 22 - 32 mmol/L [facility] Anion gap 10 2 - 15 mmol/L [facility] BUN 10 6 - 25 mg/dL [facility] Creatinine 0.74 0.60 - 1.10 mg/dL [facility] Glucose 141 70 - 199 mg/dL [facility] Comment: Interpretive Data Fasting glucose >/= 126 [...] 2022. Calcium 8.4(L) 8.5 - 10.3 mg/dL [facility] Blood 11/30/2023 10:5 5 PM CDT 12/01/2023 12:14 AM CDT us Maxime Lee MD LAB BLOOD ORDERABLES Final R esult Performing Organization Address [facility] Co de Phone Number [facility] [place] [address] * POCT glucose (11/30/2023 9:11 PM CDT) Glucose, POC 147 70 - 199 mg/dL Blood 11/30/2023 9:11 PM CDT 11/30/2023 9:11 PM CDT Suhail Alfredo MD LAB POCT ORDERABLES - DEVICE Fin al Result Performing Organization Address [facility] Co de Phone Number [facility] [place] [address] * POCT glucose (11/30/2023 5:26 PM CDT) Glucose, POC 142 70 - 199 mg/dL Blood 11/30/2023 5:26 PM CDT 11/30/2023 5:26 PM CDT Suhail Alfredo MD LAB POCT ORDERABLES - DEVICE Fin al Result Performing Organization Address [facility] Co de Phone Number [facility] [place] [address] * Infection Prevention Angie auris PCR, surveillance Axilla/Groin (11/30/2023 2:27 PM CDT) Angie auris DNA Not Detected Not Detected [facility] Comment: Interpretive Data Testing performed by [facility] using the [employer] Liaison MDX Angie auris assay. ??This assay detects DNA from Angie auris using Real-Time PCR. ??This assay is laboratory developed and is not cleared by the [facility] Food and Drug Administration. ??The performance characteristics have been verified by the [facility]. Interpretive data was last reviewed on 06/11/2023 Axilla/Groin 11/30/2023 2:27 PM CDT 11/30/2023 3:29 PM CDT Eliseo Chapa MD LAB MICROBIOLOGY - GENE RAL ORDERABLES Final Result Performing Organization Address City/[facility]/ZIP Co de Phone Number [facility] [place] [address] [facility] * (ABNORMAL) POCT glucose (11/30/2023 11:53 AM CDT) Glucose, POC 202(H) 70 - 199 mg/dL Comment:Glu2: RN/MD Notified Glucose comment 1 Glu2: RN/MD Notified [facility] Blood 11/30/2023 11:5 3 AM CDT 11/30/2023 11:53 AM CDT Suhail Alfredo MD LAB POCT ORDERABLES - DEVICE Fin al Result [facility] [place] [address] * POCT glucose (11/30/2023 9:06 AM CDT) Glucose, POC 164 70 - 199 mg/dL Blood 11/30/2023 9:06 AM CDT 11/30/2023 9:06 AM CDT us Suhail Alfredo MD LAB POCT ORDERABLES - DEVICE Fin al Result Performing Organization Address [facility] Co de Phone Number [facility] [place] [address] * (ABNORMAL) Calcium, ionized (11/30/2023 8:15 AM CDT) Calcium, Ionized 4.30(L) 4.50 - 5.10 mg/dL Blood 11/30/2023 8:15 AM CDT 11/30/2023 9:18 AM CDT us Suhail Alfredo MD LAB BLOOD ORDERABLES Final Resul t Performing Organization Address [facility] de Phone Number [facility] [place] [address] * (ABNORMAL) Cortisol (11/30/2023 8:15 AM CDT) [...] ORDERABLES Final Resul t Performing Organization Address [facility] Co de Phone Number [facility] [place] [address] * POCT glucose (11/29/2023 9:07 PM CDT) Glucose, POC 173 70 - 199 mg/dL Blood 11/29/2023 9:07 PM CDT 11/29/2023 9:07 PM CDT us Suhail Alfredo MD LAB POCT ORDERABLES - DEVICE Fin al Result Performing Organization Address [facility] de Phone Number [facility] [place] [address] * eGFR (11/29/2023 8:51 PM CDT) eGFR [...] ORDERABLES Final R esult Performing Organization Address [facility] Co de Phone Number [facility] [place] [address] * (ABNORMAL) Differential, auto (11/29/2023 8:51 PM CDT) Neutrophil abs 11.0(H) 1.5 - 6.5 K/cumm Imm gran abs 0.1 0.0 - 0.1 K/cumm [facility] Lymphocyte abs 1.6 0.8 - 3.3 K/cumm [facility] Monocyte abs 1.2(H) 0.2 - 0.8 K/cumm [facility] Eosinophil abs 0.2 0.0 - 0.5 K/cumm [facility] Basophil abs 0.1 0.0 - 0.1 K/cumm [facility] Neutrophil pct 77.4 % [facility] Comment: Interpretive Data Percent cell count reference ranges are not reported, since discordance with absolute values may lead to misinterpretation of CBC data. Current Interpretive Data was last revised on 2017. Imm gran pct 0.6 % [facility] Comment: Interpretive Data Percent cell count reference ranges are not reported, since discordance with absolute values may lead to misinterpretation of CBC data. Current Interpretive Data was last revised on 2017. Lymphocyte pct 11.3 % [facility] Comment: Interpretive Data Percent cell count reference ranges are not reported, since discordance with absolute values may lead to misinterpretation of CBC data. Current Interpretive Data was last revised on 2017. Monocyte pct 8.7 % [facility] Comment: Interpretive Data Percent cell count reference ranges are not reported, since discordance with absolute values may lead to misinterpretation of CBC data. Current Interpretive Data was last revised on 2017. Eosinophil pct 1.6 % [facility] Comment: Interpretive Data Percent cell count reference ranges are not reported, since discordance with absolute values may lead to misinterpretation of CBC data. Current Interpretive Data was last revised on 2017. Basophil pct 0.4 % [facility] Comment: Interpretive Data Percent cell count reference ranges are not reported, since discordance with absolute values may lead to misinterpretation of CBC data. Current Interpretive Data was last revised on 2017. Blood 11/29/2023 8:51 PM CDT 11/29/2023 9:12 PM CDT us Maxime Lee MD LAB BLOOD ORDERABLES Final R esult [facility] [place] [address] * (ABNORMAL) CBC with auto differential (11/29/2023 8:51 PM CDT) [facility] WBC 14.2(H) 3.8 - 9.9 K/cumm Hgb 7.5(L) 11.9 - 15.5 g/dL [facility] Hct 24.3(L) 35.6 - 45.5 % [facility] Plt 443(H) 150 - 400 K/cumm [facility] MPV 8.4(L) 9.1 - 12.3 fL [facility] RBC 2.91(L) 3.90 - 5.20 M/cumm [facility] MCV 83.5 81.3 - 96.4 fL [facility] MCH 25.8(L) 27.1 - 33.3 pg [facility] MCHC 30.9(L) 32.3 - 35.7 g/dL [facility] RDW CV 18.3(H) 11.1 - 14.9 % [facility] RDW SD 55.5(H) 35.7 - 48.1 fL [facility] NRBC abs 0.00 0.00 - 0.01 K/cumm [facility] Blood 11/29/2023 8:51 PM CDT 11/29/2023 9:12 PM CDT us Maxime Lee MD LAB BLOOD ORDERABLES Final R esult [facility] [place] [address] * Phosphorus (11/29/2023 8:51 PM CDT) [facility] Phosphorus, pl 2.7 2.3 - 4.5 mg/dL Blood 11/29/2023 8:51 PM CDT 11/29/2023 9:12 PM CDT Maxime Lee MD LAB BLOOD ORDERABLES Final R esult Performing Organization Address City/[facility] Co de Phone Number [facility] [place] [address] * Magnesium (11/29/2023 8:51 PM CDT) [facility] Magnesium 1.7 1.4 - 2.5 mg/dL Blood 11/29/2023 8:51 PM CDT 11/29/2023 9:12 PM CDT Maxime Lee MD LAB BLOOD ORDERABLES Final R esult Performing Organization Address City/[facility] Co de Phone Number [facility] [place] [address] * (ABNORMAL) Basic metabolic panel (11/29/2023 8:51 PM CDT) [facility] Sodium 131(L) 135 - 145 mmol/L Potassium, pl 4.0 3.3 - 4.9 mmol/L [facility] Chloride 101 97 - 110 mmol/L [facility] CO2 24 22 - 32 mmol/L [facility] Anion gap 6 2 - 15 mmol/L [facility] BUN 12 6 - 25 mg/dL [facility] Creatinine 0.86 0.60 - 1.10 mg/dL [facility] Glucose 163 70 - 199 mg/dL [facility] Comment: Interpretive Data Fasting glucose >/= 126 [...] 2022. Calcium 7.9(L) 8.5 - 10.3 mg/dL [facility] Blood 11/29/2023 8:51 PM CDT 11/29/2023 9:12 PM CDT us Maxime Lee MD LAB BLOOD ORDERABLES Final R esult Performing Organization Address [facility] Co de Phone Number [facility] [place] [address] * POCT glucose (11/29/2023 4:20 PM CDT) Glucose, POC 185 70 - 199 mg/dL Blood 11/29/2023 4:20 PM CDT 11/29/2023 4:20 PM CDT Suhail Alfredo MD LAB POCT ORDERABLES - DEVICE Fin al Result Performing Organization Address [facility] de Phone Number [facility] [place] [address] * POCT glucose (11/29/2023 8:28 AM CDT) Glucose, POC 137 70 - 199 mg/dL Blood 11/29/2023 8:28 AM CDT 11/29/2023 8:28 AM CDT Suhail Alfredo MD LAB POCT ORDERABLES - DEVICE Fin al Result Performing Organization Address [facility] Co de Phone Number [facility] [place] [address] * Mold Blood Culture Blood (11/29/2023 12:58 AM CDT) Report Final Report: No growth Blood 11/29/2023 12:5 8 AM CDT 11/29/2023 4:07 AM CDT Narrative [facility] - 12/29/2023 7:01 AM EQUIPMENT MAINT TECH Interpretive data: Mold blood cultures are incubated [...] for optimal patient management. Testing performed by [facility] ([phone]). Current interpretive data was last revised on 2023. us Suhail Alfredo MD LAB MICROBIOLOGY - GENERAL ORDER INO Final Result [facility] [place] [address] * eGFR (11/29/2023 12:46 AM CDT) eGFR [...] MD LAB BLOOD ORDERABLES Final R esult [facility] [place] [address] * (ABNORMAL) Differential, auto (11/29/2023 12:46 AM CDT) Neutrophil abs 12.3(H) 1.5 - 6.5 K/cumm Imm gran abs 0.1 0.0 - 0.1 K/cumm [facility] Lymphocyte abs 3.0 0.8 - 3.3 K/cumm [facility] Monocyte abs 1.5(H) 0.2 - 0.8 K/cumm [facility] Eosinophil abs 0.3 0.0 - 0.5 K/cumm [facility] Basophil abs 0.1 0.0 - 0.1 K/cumm [facility] Neutrophil pct 71.4 % [facility] Comment: Interpretive Data Percent cell count reference ranges are not reported, since discordance with absolute values may lead to misinterpretation of CBC data. Current Interpretive Data was last revised on 2017. Imm gran pct 0.8 % [facility] Comment: Interpretive Data Percent cell count reference ranges are not reported, since discordance with absolute values may lead to misinterpretation of CBC data. Current Interpretive Data was last revised on 2017. Lymphocyte pct 17.3 % [facility] Comment: Interpretive Data Percent cell count reference ranges are not reported, since discordance with absolute values may lead to misinterpretation of CBC data. Current Interpretive Data was last revised on 2017. Monocyte pct 8.6 % [facility] Comment: Interpretive Data Percent cell count reference ranges are not reported, since discordance with absolute values may lead to misinterpretation of CBC data. Current Interpretive Data was last revised on 2017. Eosinophil pct 1.5 % [facility] Comment: Interpretive Data Percent cell count reference ranges are not reported, since discordance with absolute values may lead to misinterpretation of CBC data. Current Interpretive Data was last revised on 2017. Basophil pct 0.4 % [facility] Comment: Interpretive Data Percent cell count reference ranges are not reported, since discordance with absolute values may lead to misinterpretation of CBC data. Current Interpretive Data was last revised on 2017. Blood 11/29/2023 12:4 6 AM CDT 11/29/2023 1:06 AM CDT us Maxime Lee MD LAB BLOOD ORDERABLES Final R esult [facility] [place] [address] * (ABNORMAL) CBC with auto differential (11/29/2023 12:46 AM CDT) WBC 17.2(H) 3.8 - 9.9 K/cumm Hgb 8.0(L) 11.9 - 15.5 g/dL [facility] Hct 27.2(L) 35.6 - 45.5 % [facility] Plt 511(H) 150 - 400 K/cumm [facility] MPV 8.4(L) 9.1 - 12.3 fL [facility] RBC 3.18(L) 3.90 - 5.20 M/cumm [facility] MCV 85.5 81.3 - 96.4 fL [facility] MCH 25.2(L) 27.1 - 33.3 pg [facility] MCHC 29.4(L) 32.3 - 35.7 g/dL [facility] RDW CV 18.0(H) 11.1 - 14.9 % [facility] RDW SD 56.4(H) 35.7 - 48.1 fL [facility] NRBC abs 0.00 0.00 - 0.01 K/cumm [facility] Blood 11/29/2023 12:4 6 AM CDT 11/29/2023 1:06 AM CDT Maxime Lee MD LAB BLOOD ORDERABLES Final R esult Performing Organization Address City/[facility] Co de Phone Number [facility] [place] [address] * Phosphorus (11/29/2023 12:46 AM CDT) Pathologist [facility] Phosphorus, pl 3.5 2.3 - 4.5 mg/dL Blood 11/29/2023 12:4 6 AM CDT 11/29/2023 1:06 AM CDT us Maxime Lee MD LAB BLOOD ORDERABLES Final R esult Performing Organization Address City/[facility] Co de Phone Number [facility] [place] [address] * Magnesium (11/29/2023 12:46 AM CDT) [facility] Magnesium 2.0 1.4 - 2.5 mg/dL Blood 11/29/2023 12:4 6 AM CDT 11/29/2023 1:06 AM CDT Maxime Lee MD LAB BLOOD ORDERABLES Final R esult Performing Organization Address City/[facility] [place] [address] * (ABNORMAL) Basic metabolic panel (11/29/2023 12:46 AM CDT) [facility] Sodium 135 135 - 145 mmol/L Potassium, pl 4.3 3.3 - 4.9 mmol/L [facility] Chloride 101 97 - 110 mmol/L [facility] CO2 28 22 - 32 mmol/L [facility] Anion gap 6 2 - 15 mmol/L [facility] BUN 15 6 - 25 mg/dL [facility] Creatinine 0.82 0.60 - 1.10 mg/dL [facility] Glucose 97 70 - 199 mg/dL [facility] Comment: Interpretive Data Fasting glucose >/= 126 [...] 2022. Calcium 8.4(L) 8.5 - 10.3 mg/dL [facility] Blood 11/29/2023 12:4 6 AM CDT 11/29/2023 1:06 AM CDT us Maxime Lee MD LAB BLOOD ORDERABLES Final R esult Performing Organization Address City/[facility]/ZIP Co de Phone Number [facility] [place] [address] * POCT glucose (11/28/2023 8:35 PM CDT) Glucose, POC 129 70 - 199 mg/dL Blood 11/28/2023 8:35 PM CDT 11/28/2023 8:35 PM CDT us Suhial Alfredo MD LAB POCT ORDERABLES - DEVICE Fin al Result Performing Organization Address City/[facility]/ZIP Co de Phone Number [facility] [place] [address] * POCT glucose (11/28/2023 4:45 PM CDT) Glucose, POC 127 70 - 199 mg/dL Blood 11/28/2023 4:45 PM CDT 11/28/2023 4:45 PM CDT us Suhail Alfredo MD LAB POCT ORDERABLES - DEVICE Fin al Result Performing Organization Address [facility] de Phone Number [facility] [place] [address] * (ABNORMAL) Calprotectin, fecal (11/28/2023 4:13 PM CDT) Calprotectin, fecal >3000(H) <50.0 (Normal) mcg/g [facility] Comment: Interpretation: Abnormal (>120 mcg/g) Test Performed by: [facility] [address] [place] [address] Valet Manager: Rach Guillermo Ph.D.; CLIA# [id number] Stool 11/28/2023 4:13 PM CDT 11/28/2023 7:49 PM CDT us Suhail Alfredo MD LAB BODY FLUIDS AND STOOLS ORDER INO Final Result Performing Organization Address [facility] de Phone Number [facility] [place] [address] [facility] * Calcium, ionized (11/28/2023 4:13 PM CDT) Calcium, Ionized 4.54 4.50 - 5.10 mg/dL Blood 11/28/2023 4:13 PM CDT 11/28/2023 4:22 PM CDT us Suhail Alfredo MD LAB BLOOD ORDERABLES Final Resul t Performing Organization Address [facility] Co de Phone Number [facility] [place] [address] * (ABNORMAL) Leukocytes, fecal (11/28/2023 4:13 PM CDT) WBC, fecal Few leukocyte s(A) No leukocytes Comment: Interpretive Data Testing performed by microsopy. Current Interpretive Data was last revised on 2022 Stool 11/28/2023 4:13 PM CDT 11/28/2023 6:17 PM CDT Suhail Alfredo MD LAB BODY FLUIDS AND STOOLS ORDER INO Final Result Performing Organization Address [facility] de Phone Number [facility] [place] [address] * Histoplasma Antigen Urine (11/28/2023 3:00 PM CDT) Pathologist [facility] Histo Ag Ur result None Detected None Detected Histo Ag Ur interp Negative Negative [facility] Comment: Result Interpretation: Reference interval: None Detected Results reported as ng/mL in 0.20 - 20.00 ng/mL range Results above 20.00 ng/mL are reported as 'Positive, Above the Limit of Quantification' Testing Performed by: [facility], [address] [place] [address] [place] [facility]. This test was developed and its performance characteristics determined by [facility]. It has not been cleared or approved [...] ORDER INO Final Result Performing Organization Address [facility] de Phone Number [facility] [place] [address] * X-ray chest 1 view (Portable) (11/28/2023 [...] POCT ORDERABLES - DEVICE Fin al Result [facility] [place] [address] * Pneumonia PCR Bronchoalveolar lavage Lobe, left upper (11/28/2023 11:02 AM CDT) C. pneumoniae DNA Not Detected Not Detected Legionella pneumophila DNA Not Detected Not Detected [facility] M. pneumoniae DNA Not Detected Not Detected [facility] Adenovirus DNA Not Detected Not Detected [facility] Coronavirus (229E, OC43, HKU1, NL63) RNA Not Detected Not Detected [facility] Metapneumovirus RNA Not Detected Not Detected [facility] Rhinovirus/Enterov irus RNA Not Detected Not Detected [facility] Influenza A RNA Not Detected Not Detected [facility] Influenza B RNA Not Detected Not Detected [facility] Parainfluenza virus (1-4) RNA Not Detected Not Detected [facility] RSV RNA Not Detected Not Detected [facility] Bronchoalveolar lavage (Lobe, left upper) 11/28/2023 11:02 AM CDT 11/28/2023 2:27 PM CDT Narrative [facility] - 11/28/2023 3:54 PM CDT The [employer] [...] rule out infection/co-infection with other organisms. The [employer] Pneumonia Panel is FDA cleared for lower respiratory tract specimens. The performance characteristics of this assay have been determined by [facility]. Current interpretive data was last revised on 2023. us Suhail Alfredo MD LAB MICROBIOLOGY - GENERAL ORDER INO Final Result [facility] [place] [address] * Pneumonia PCR with aerobic culture and [...] mixed bacterial noah seen on Gram stain. [facility] Report Final Report: Growth indicates upper respiratory noah. [facility] Organism GROWTH INDICATES UPPER RESPIRATORY NOAH. [facility] Bronchoalveolar lavage (Lobe, left upper) 11/28/2023 11:02 AM CDT 11/28/2023 1:12 PM CDT Narrative [facility] - 12/01/2023 3:07 PM CDT When rapid molecular testing results are reported, testing completed using the [employer] Pneumonia Panel. ??This molecular assay detects: Acinetobacter [...] performance characteristics have been confirmed by the [facility]. ??The performance of the [employer] Pneumonia Panel has not been established for monitoring treatment of infection and bacterial nucleic acids may persist independent of organism viability. us uShail Alfredo MD LAB MICROBIOLOGY - GENERAL ORDER INO Final Result [facility] [place] [address] * Cytomegalovirus (CMV) PCR qualitative Bronchoalveolar lavage Lobe, left upper (11/28/2023 11:02 AM CDT) CMV DNA Not Detected Not Detected [facility] Comment: Interpretive Data: This assay tests for [...] 11:02 AM CDT 11/28/2023 1:47 PM CDT us Suhail Alfredo MD LAB MICROBIOLOGY - GENERAL ORDER INO Final Result Performing Organization Address [facility] [place] [address] [facility] * Adenovirus PCR qualitative Bronchoalveolar lavage (11/28/2023 11:02 AM CDT) Pathologist [facility] Adenovirus DNA Not Detected Not Detected [facility] Comment: Interpretive Data: This assay tests for [...] ORDER INO Final Result Performing Organization Address [facility] de Phone Number [facility] [place] [address] [facility] * Cell Differential, Body Fluid (11/28/2023 11:02 AM CDT) Pathologist [facility] Total cells diffed 100 cells Comment: Interpretive Data Unless otherwise specified, the reference range and other method performance specifications have not been established for CSF/Body Fluid tests. ??The test results should be integrated into the clinical context for interpretation. Current interpretive data was last revised on 2018. Neutrophils, fld 62 % [facility] Lymphs, fld 1 % [facility] Monocyte, fld 3 % [facility] Macrophages, fld 34 % [facility] Fluid 11/28/2023 11:0 2 AM CDT 11/28/2023 12:51 PM CDT Suhail Alfredo MD LAB BODY FLUIDS AND STOOLS ORDER INO Final Result Performing Organization Address [facility] Co de Phone Number [facility] [place] [address] * Cell count w/rflx diff, body fluid (11/28/2023 11:02 AM CDT) Specimen type, fld Bronchial Body site, fld Bronch Lavage [facility] Color, fld Straw [facility] Clarity, fld Clear Clear [facility] Nucleated cells, fld 751 /cumm [facility] Comment: Interpretive Data Unless otherwise specified, the reference range and other method performance specifications have not been established for CSF/Body Fluid tests. ??The test results should be integrated into the clinical context for interpretation. Current interpretive data was last revised on 2018. RBC, fld 0 /cumm [facility] Fluid 11/28/2023 11:0 2 AM CDT 11/28/2023 12:51 PM CDT Suhail Alfredo MD LAB BODY FLUIDS AND STOOLS ORDER INO Final Result [facility] [place] [address] * Aerobic culture and gram stain Bronchial washing Lobe, left upper (11/28/2023 11:02 AM CDT) Direct Specimen Exam Stain: Cytospin Gram stain shows: Abundant polymorphonuclear leukocytes seen. Abundant squamous epithelial cells seen indicating excessive oral pharyngeal contamination Other cellular material present. Rare mixed bacterial noah seen on Gram stain. Report Final Report: Growth indicates upper respiratory noah. [facility] Organism GROWTH INDICATES UPPER RESPIRATORY NOAH. [facility] Bronchial washing (Lobe, left upper) 11/28/2023 11:02 AM CDT 11/28/2023 12:58 PM CDT Narrative [facility] - 12/01/2023 2:39 PM CDT Testing performed by [facility] ([phone]) Specimens submitted from normally sterile body sites [...] ORDER INO Final Result Performing Organization Address [facility] Co de Phone Number [facility] [place] [employer] [address] * Mycology (fungal) culture Bronchial washing Lobe, left upper (11/28/2023 11:02 AM CDT) Report Final Report: No growth of fungus Bronchial washing (Lobe, left upper) 11/28/2023 11:02 AM CDT 11/28/2023 12:58 PM CDT Narrative [facility] - 12/26/2023 8:05 AM EQUIPMENT MAINT TECH Testing performed by [facility] ([phone]). us Suhail Alfredo MD LAB MICROBIOLOGY - GENERAL ORDER INO Final Result Performing Organization Address [facility] [place] [address] * Mycology (fungal) culture Bronchoalveolar lavage Bronchial (11/28/2023 11:02 AM CDT) Report Final Report: No growth of fungus Bronchoalveolar lavage (Bronchial) 11/28/2023 11:02 AM CDT 11/28/2023 1:12 PM CDT Dung [facility] - 12/26/2023 8:05 AM EQUIPMENT MAINT TECH Testing performed by [facility] ([phone]). us Suhail Alfredo MD LAB MICROBIOLOGY - GENERAL ORDER INO Final Result Performing Organization Address City/[facility] Co de Phone Number [facility] [place] [address] * Mycobacteriology (AFB) culture and acid-fast stain Bronchial washing Lobe, left upper (11/28/2023 11:02 AM CDT) Direct Specimen Exam Stain: No Acid-fast bacilli seen Report Final Report: No growth of acid-fast bacilli [facility] Bronchial washing (Lobe, left upper) 11/28/2023 11:02 AM CDT 11/28/2023 12:58 PM CDT Narrative [facility] - 01/26/2024 9:26 AM EQUIPMENT MAINT TECH Testing performed by [facility] ([phone]). us Suhail Alfredo MD LAB MICROBIOLOGY - GENERAL ORDER INO Final Result Performing Organization Address [facility] [place] [place] [address] * Mycobacteriology (AFB) culture and acid-fast stain Bronchoalveolar lavage Lobe, left upper (11/28/2023 11:02 AM CDT) Direct Specimen Exam Stain: No Acid-fast bacilli seen Report Final Report: No growth of acid-fast bacilli [facility] Bronchoalveolar lavage (Lobe, left upper) 11/28/2023 11:02 AM CDT 11/28/2023 1:12 PM CDT Narrative [facility] - 01/26/2024 9:26 AM EQUIPMENT MAINT TECH Testing performed by [facility] ([phone]). us Suhail Alfredo MD LAB MICROBIOLOGY - GENERAL ORDER INO Final Result Performing Organization Address City/[facility]/[place] [address] * Pneumocystis DFA Bronchial washing (11/28/2023 11:02 AM CDT) Report Direct Stain Examination - Final: Negative for: Pneumocystis jirovecii Bronchial washing 11/28/2023 11:02 AM CDT 11/28/2023 12:58 PM CDT Narrative [facility] - 11/29/2023 1:38 PM CDT The Pneumocystis [...] ORDER INO Final Result Performing Organization Address [facility] Co de Phone Number [facility] [place] [address] * Pneumocystis DFA Bronchoalveolar lavage (11/28/2023 11:02 AM CDT) Report Direct Stain Examination - Final: Negative for: Pneumocystis jirovecii Bronchoalveolar lavage 11/27 11:02 AM CDT 11/28/2023 1:12 PM CDT Narrative [facility] 11/29/2023 1:38 PM CDT The Pneumocystis [...] ORDER INO Final Result Performing Organization Address [facility] Co de Phone Number [facility] [place] [address] * Legionella culture Bronchoalveolar lavage (11/28/2023 11:02 AM CDT) Report Final Report: Negative Bronchoalveolar lavage 11/27 11:02 AM CDT 11/28/2023 1:12 PM CDT Suhail Alfredo MD LAB MICROBIOLOGY - GENERAL ORDER INO Final Result [facility] [place] [address] * Cytology (11/28/2023 10:48 AM CDT) Fluid (Bronch Lavage (Cytology)) 11/28/2023 10:48 AM CDT 11/28/2023 1:10 PM CDT Narrative PATHOLOGY [facility] - 12/02/2023 2:20 PM CDT EPIC results best viewed via link to PDF [facility] [place] [address] Note to Patients: This report may contain [...] Gender: ??F : ??1960 (Age: 63) Address: ??[address] [place] [address] ??[id number] Hospital #: ??[id number] Taken:11/28/2023 Received:11/28/2023 Reported: 12/02/2023 Patient Type: [facility] Inpatient ?? Service: Medical Location: [place] [address] Physician(s): ??Monserrat Bautistaon, M.D. Kaushal Heath M.D. FINAL DIAGNOSIS Bronchoalveolar lavage, left ? - Negative for malignancy or opportunistic infection 12/02/2023 12:49 By this signature, I attest that the above diagnosis is based upon my personal examination of the slides(and/or other material indicated in the diagnosis). Lindsay Martinez M.D. Report Electronically Reviewed and Signed Out By ??Lindsay Martinez M.D. 12/02/2023 14:20:18 John Ortega [facility](ASCP) Gross Description A. ??Bal, left: ? 10 [...] Surgical Pathology and Flow Cytometry Departments at [facility] as part of an ongoing quality assurance supervisor trim program and in compliance with federally mandated [...] Surgical Pathology and Flow Cytometry Departments of [facility]. ??It has not been cleared or approved by the U. S. Food and Drug Administration. us Suhail Alfredo MD LAB CYTOLOGY ORDERABLES Final Re sult PATHOLOGY [facility] 3rd Floor [place], [place] [phone] * Surgical pathology (11/28/2023 10:48 AM CDT) Tissue (Lung Biopsy) 11/28/2023 10:48 AM CDT 11/28/2023 1:09 PM CDT Narrative PATHOLOGY [facility] - 12/02/2023 11:21 AM CDT EPIC results best viewed via link to PDF [facility] [place] [address] Note to Patients: This report may contain [...] Gender: ??F : ??1960 (Age: 63) Address: ??[address] [place] [address] ??[id number] Hospital #: ??[id number] Taken:11/28/2023 Received:11/28/2023 Reported: 12/02/2023 Patient Type: [facility] Inpatient ?? Service: Medical Location: [place] [address] Physician(s): ??Marlene Pierre M.D. Suhail Alfredo M.D. Diagnosis: Lung, left upper lobe, biopsy ? - Organizing lung injury and bronchiolitis, see comment /11/30/2023 13:32 By this signature, I attest that [...] x 0.1 cm. Labeled A1. Jar 0. [facility]/11/28/2023 14:59 PA(s): Lakeshia Raymond By this signature, [...] Bacteria broad-range PCR test was performed at [facility]. ??[facility], [address], [address] [place] [address] The performance characteristics of some immunohistochemical stains, fluorescence in-situ hybridization tests and immunophenotyping by flow cytometry cited in this report (if any) were determined by the Surgical Pathology and Flow Cytometry Departments at [facility] as part of an ongoing quality assurance supervisor trim program and in compliance with federally mandated [...] Surgical Pathology and Flow Cytometry Departments of [facility]. ??It has not been cleared or approved by the U. S. Food and Drug Administration. IMAGES AND SCANNED DOCUMENTS, IF INCLUDED, ONLY VIEWABLE IN PDF VERSION OF REPORT us Suhail Alfredo MD LAB PATHOLOGY ORDERABLES Final R esult PATHOLOGY [facility] 3rd Floor [place], [place] [phone] * Bronchoscopy - (11/28/2023 9:47 AM CDT) Anatomical Region Laterality Modality Other Narrative Procedure Note Ricky Vasquez MD - 11/28/2023 9:47 AM CDT [facility] Respiratory Care Patient Name: Darius Russo Procedure Date: 11/28/2023 9:47 AM Date of : 1960 Admit Type: Inpatient Age: 63 Room: [facility] Gender: Female Note Status: Finalized Procedure: Bronchoscopy [...] Conscious sedation note: I personally provided direct [id number] monitoring of conscious sedation administered by an [...] DEVICE Fin al Result Performing Organization Address [facility]/ZIP Co de Phone Number GO [facility] [place] [address] * eGFR (11/28/2023 1:10 AM CDT) eGFR [...] ORDERABLES Final R esult Performing Organization Address City/[facility]/ZIP Co de Phone Number GO ROBERT Abdullahi [facility] [place] [address] * (ABNORMAL) Differential, auto (11/28/2023 1:10 AM CDT) Neutrophil abs 11.0(H) 1.5 - 6.5 K/cumm Imm gran abs 0.1 0.0 - 0.1 K/cumm [facility] Lymphocyte abs 1.6 0.8 - 3.3 K/[facility] Monocyte abs 1.5(H) 0.2 - 0.8 K/cumm [facility] Eosinophil abs 0.1 0.0 - 0.5 K/cumm [facility] Basophil abs 0.1 0.0 - 0.1 K/cumm [facility] Neutrophil pct 76.5 % [facility] Comment: Interpretive Data Percent cell count reference ranges are not reported, since discordance with absolute values may lead to misinterpretation of CBC data. Current Interpretive Data was last revised on 2017. Imm gran pct 0.8 % [facility] Comment: Interpretive Data Percent cell count reference ranges are not reported, since discordance with absolute values may lead to misinterpretation of CBC data. Current Interpretive Data was last revised on 2017. Lymphocyte pct 11.4 % [facility] Comment: Interpretive Data Percent cell count reference ranges are not reported, since discordance with absolute values may lead to misinterpretation of CBC data. Current Interpretive Data was last revised on 2017. Monocyte pct 10.1 % [facility] Comment: Interpretive Data Percent cell count reference ranges are not reported, since discordance with absolute values may lead to misinterpretation of CBC data. Current Interpretive Data was last revised on 2017. Eosinophil pct 0.8 % [facility] Comment: Interpretive Data Percent cell count reference ranges are not reported, since discordance with absolute values may lead to misinterpretation of CBC data. Current Interpretive Data was last revised on 2017. Basophil pct 0.4 % [facility] Comment: Interpretive Data Percent cell count reference ranges are not reported, since discordance with absolute values may lead to misinterpretation of CBC data. Current Interpretive Data was last revised on 2017. Blood 11/28/2023 1:10 AM CDT 11/28/2023 1:29 AM CDT us Maxime Lee MD LAB BLOOD ORDERABLES Final R esult [facility] [place] [address] * (ABNORMAL) CBC with auto differential (11/28/2023 1:10 AM CDT) WBC 14.4(H) 3.8 - 9.9 K/cumm Hgb 7.8(L) 11.9 - 15.5 g/dL [facility] Hct 25.5(L) 35.6 - 45.5 % [facility] Plt 434(H) 150 - 400 K/cumm [facility] MPV 8.7(L) 9.1 - 12.3 fL [facility] RBC 3.04(L) 3.90 - 5.20 M/cumm [facility] MCV 83.9 81.3 - 96.4 fL [facility] MCH 25.7(L) 27.1 - 33.3 pg [facility] MCHC 30.6(L) 32.3 - 35.7 g/dL [facility] RDW CV 17.9(H) 11.1 - 14.9 % [facility] RDW SD 54.8(H) 35.7 - 48.1 fL [facility] NRBC abs 0.00 0.00 - 0.01 K/cumm [facility] Blood 11/28/2023 1:10 AM CDT 11/28/2023 1:29 AM CDT us Maxime Lee MD LAB BLOOD ORDERABLES Final R esult [facility] [place] [address] * Aspergillus galactomannan antigen Blood (11/28/2023 1:10 AM CDT) Aspergillus galactomannan Ag <0.500 <0.5 Index [facility] Comment: ADDITIONAL INFORMATION This is a qualitative test and the resulted index value is not indicative of disease severity. ??Serial testing is recommended for patients at high risk for invasive aspergillosis. This assay was performed using the FDA-cleared [employer] Plat[employer] Aspergillus Galactomannan EIA. Test Performed by: [facility] [address] [place] [address] Valet Manager: Rach Guillermo Ph.D.; CLIA# [id number] Blood 11/28/2023 1:10 AM CDT 11/28/2023 1:51 AM CDT us Suhail Alfredo MD LAB MICROBIOLOGY - GENERAL ORDER INO Final Result Performing Organization Address [facility] Co de Phone Number [facility] [place] [address] [facility] * aPTT (11/28/2023 1:10 [...] ORDERABLES Final Resul t Performing Organization Address [facility] Co de Phone Number [facility] [place] [address] * (ABNORMAL) Erythrocyte sedimentation rate (11/28/2023 1:10 AM CDT) Erythrocyte sedimentation rate 97(H) 1 - 30 mm/hr Blood 11/28/2023 1:10 AM CDT 11/28/2023 1:30 AM CDT us Suhail Alfredo MD LAB BLOOD ORDERABLES Final Resul t Performing Organization Address [facility] Co de Phone Number [facility] [place] [employer] [place] [address] * (ABNORMAL) Protime-INR (11/28/2023 1:10 AM CDT) PT 17.7(H) 9.7 - 13.0 sec INR 1.62(H) 0.90 - 1.20 [facility] Comment: Interpretive data Oral anticoagulant therapeutic ranges: Venous thromboembolism prophylaxis or treatment: 2.0-3.0 CARDIOLOGY Standard range: 2.0-3.0 High-intensity range: 2.5-3.5 Refer to indication-specific guidelines for appropriate target ranges for prosthetic heart valve replacement. Current interpretive data was last revised on 2019. Blood 11/28/2023 1:10 AM CDT 11/28/2023 1:28 AM CDT us Suhail Alfredo MD LAB BLOOD ORDERABLES Final Resul t Performing Organization Address [facility] Co de Phone Number [facility] [place] [address] * Type and screen (11/28/2023 1:10 AM CDT) ABO Rh O Positive Maira, indirect Negative [facility] Blood 11/28/2023 1:10 AM CDT 11/28/2023 1:49 AM CDT Narrative [facility] - 11/28/2023 2:35 AM CDT Has the patient had Daratumumab or Isatuximab in the past 6 months?->Unknown us Suhail Alfredo MD LAB BLOOD BANK TEST ORDERABLES F inal Result Performing Organization Address City/[facility] [place] [address] * (ABNORMAL) CRP (acute phase) (11/28/2023 1:10 AM CDT) Pathologist [facility] CRP 173.3(H) <=10.0 mg/L Blood 11/28/2023 1:10 AM CDT 11/28/2023 1:29 AM CDT us Suhail Alfredo MD LAB BLOOD ORDERABLES Final Resul t Performing Organization Address [facility] [place] [place] [address] * Phosphorus (11/28/2023 1:10 AM CDT) Pathologist [facility] Phosphorus, pl 3.5 2.3 - 4.5 mg/dL Blood 11/28/2023 1:10 AM CDT 11/28/2023 1:29 AM CDT us Maxime Lee MD LAB BLOOD ORDERABLES Final R esult Performing Organization Address [facility] Co de Phone Number [facility] [place] [address] * Osmolality, blood (11/28/2023 1:10 AM CDT) [facility] Osmo 281 275 - 300 mOsm/kg Blood 11/28/2023 1:10 AM CDT 11/28/2023 1:29 AM CDT us Suhail Alfredo MD LAB BLOOD ORDERABLES Final Resul t Performing Organization Address [facility] [place] [place] [address] * Magnesium (11/28/2023 1:10 AM CDT) [facility] Magnesium 2.0 1.4 - 2.5 mg/dL Blood 11/28/2023 1:10 AM CDT 11/28/2023 1:29 AM CDT us Maxime Lee MD LAB BLOOD ORDERABLES Final R esult [facility] [place] [place] [address] * (ABNORMAL) Basic metabolic panel (11/28/2023 1:10 AM CDT) Pathologist [facility] Sodium 134(L) 135 - 145 mmol/L Potassium, pl 4.1 3.3 - 4.9 mmol/L [facility] Chloride 98 97 - 110 mmol/L [facility] CO2 28 22 - 32 mmol/L [facility] Anion gap 8 2 - 15 mmol/L [facility] BUN 15 6 - 25 mg/dL [facility] Creatinine 0.78 0.60 - 1.10 mg/dL [facility] Glucose 153 70 - 199 mg/dL [facility] Comment: Interpretive Data Fasting glucose >/= 126 [...] 2022. Calcium 8.3(L) 8.5 - 10.3 mg/dL [facility] Blood 11/28/2023 1:10 AM CDT 11/28/2023 1:29 AM CDT us Maxime Lee MD LAB BLOOD ORDERABLES Final R esult Performing Organization Address City/[facility]/ZIP Co de Phone Number [facility] [place] [place] [address] * Sodium, urine, random (11/27/2023 9:00 PM CDT) Sodium, ur 74 mmol/L Comment: Interpretive Data No reference range established. Current interpretive data was last revised 2018. Urine (Urine, Clean Catch) 11/27/2023 9:00 PM CDT 11/28/2023 6:41 PM CDT us Suhail Alfredo MD LAB URINE ORDERABLES Final Resul t Performing Organization Address [facility] [place] [address] * Potassium, urine, random (11/27/2023 9:00 PM CDT) Potassium conc, ur 85.6 mmol/L Comment: Interpretive Data No reference range established. Current interpretive data was last revised 2018. Urine (Urine, Clean Catch) 11/27/2023 9:00 PM CDT 11/28/2023 6:41 PM CDT us Suhail Alfredo MD LAB URINE ORDERABLES Final Resul t Performing Organization Address [facility] de Phone Number [facility] [place] [address] * Osmolality, urine (11/27/2023 9:00 PM CDT) Osmo, ur 644 mOsm/kg Urine 11/27/2023 9:00 PM CDT 11/28/2023 6:41 PM CDT us Suhail Alfredo MD LAB URINE ORDERABLES Final Resul t Performing Organization Address [facility] Phone Number [facility] [place] [address] * Chloride, urine, random (11/27/2023 9:00 PM CDT) Chloride, ur 63 mmol/L Comment: Interpretive Data No reference range established. Current interpretive data was last revised 2018. Urine (Urine, Clean Catch) 11/27/2023 9:00 PM CDT 11/28/2023 6:41 PM CDT us Suhail Alfredo MD LAB URINE ORDERABLES Final Resul t Performing Organization Address [facility] Co de Phone Number [facility] [place] [place] [address] * POCT glucose (11/27/2023 7:46 PM CDT) Glucose, POC 170 70 - 199 mg/dL Blood 11/27/2023 7:46 PM CDT 11/27/2023 7:46 PM CDT us Suhail Alfredo MD LAB POCT ORDERABLES - DEVICE Fin al Result Performing Organization Address [facility] de Phone Number [facility] [place] [address] * POCT glucose (11/27/2023 5:35 PM CDT) Glucose, POC 145 70 - 199 mg/dL Blood 11/27/2023 5:35 PM CDT 11/27/2023 5:35 PM CDT us Suhail Alfredo MD LAB POCT ORDERABLES - DEVICE Fin al Result Performing Organization Address [facility] de Phone Number [facility] [place] [address] * POCT glucose (11/27/2023 11:45 AM CDT) Glucose, POC 179 70 - 199 mg/dL Blood 11/27/2023 11:4 5 AM CDT 11/27/2023 11:45 AM CDT us Suhail Alfredo MD LAB POCT ORDERABLES - DEVICE Fin al Result Performing Organization Address [facility] de Phone Number [facility] [place] [address] * POCT glucose (11/27/2023 7:54 AM CDT) Glucose, POC 141 70 - 199 mg/dL Blood 11/27/2023 7:54 AM CDT 11/27/2023 7:54 AM CDT us Suhail Alfredo MD LAB POCT ORDERABLES - DEVICE Fin al Result Performing Organization Address [facility] [place] [address] * Blastomyces antibody, EIA, serum Blood (11/27/2023 12:54 AM CDT) [facility] Blastomyces Antibody Negative Negative [facility] Comment: A single negative result does not exclude the diagnosis of blastomycosis. ??Repeat testing on a new sample in 7-14 days if clinically indicated. Test Performed by: [place] [address] Valet Manager: Rach Guillermo Ph.D.; CLIA# [id number] Blood 11/27/2023 12:5 4 AM CDT 11/27/2023 1:05 AM CDT us Suhail Alfredo MD LAB MICROBIOLOGY - GENERAL ORDER INO Final Result Performing Organization Address [facility] [place] [address] [facility] * Histoplasma Antibody Blood (11/27/2023 12:53 AM CDT) Histoplasma Ab, yeast CF Negative Negative [facility] Lab Histoplasma Ab, Immunodiffusion Negative Negative [facility] Comment: A negative complement fixation and immunodiffusion (CF/ID) result does not exclude the diagnosis of histoplasmosis. ?? Repeat testing by CF/ID in 1-2 weeks if clinically indicated. Test Performed by: [facility] [address] [place] [address] Valet Manager: Rach Guillermo Ph.D.; CLIA# [id number] Blood 11/27/2023 12:5 3 AM CDT 11/27/2023 1:05 AM CDT Suhail Alfredo MD LAB MICROBIOLOGY - GENERAL ORDER INO Final Result Performing Organization Address City/[facility]/ZIP Co de Phone Number [facility] [place] [employer] [place] [address] [facility] Lab * HIV 1/2 Antibody plus p24 Antigen Blood (11/27/2023 12:53 AM CDT) Pathologist [facility] HIV 1/2 ab + p24 ag Nonreactive Nonreactive Comment:Nonreactive for HIV- 1 antigen and HIV-1/HIV-2 antibodies. No laboratory evidence of HIV infection. If acute HIV infection is suspected, consider testing for HIV-1 RNA. Current interpretive data was last revised on 21. Blood 11/27/2023 12:5 3 AM CDT 11/27/2023 1:18 AM CDT Suhail Alfredo MD LAB MICROBIOLOGY - GENERAL ORDER INO Final Result [facility] [place] [address] * Cryptococcal Antigen, Serum Blood (11/27/2023 12:53 AM CDT) Pathologist [facility] Cryptococcus ag, Serum Negative Negative Comment: The cryptococcal antigen test was performed using the [employer] CrAg Lateral Flow Assay. This assay is [...] 3 AM CDT 11/27/2023 1:25 AM CDT Suhail Alfredo MD LAB MICROBIOLOGY - GENERAL ORDER INO Final Result GO [facility] [place] [address] * Blood culture Blood (11/27/2023 12:53 AM CDT) Report Final Report: No growth Blood 11/27/2023 12:5 3 AM CDT 11/27/2023 1:38 AM CDT Narrative GO [facility]ERT - 12/01/2023 7:00 AM CDT From a [...] organism identification may be performed using the [employer] Gram-Positive Blood Culture Assay. This assay detects microbial DNA in positive blood culture broth via hybridization of target DNA to capture oligonucleotides on a microarray. This assay has been cleared by the [place] Food and Drug Administration and its performance characteristics have been verified by the [facility] Microbiology Laboratory. 5. ?For questions about this culture, contact the Microbiology Laboratory at [phone]. Interpretive data was last revised on 2019. Suhail Alfredo MD LAB MICROBIOLOGY - GENERAL ORDER INO Final Result [facility] [place] [address] * Blood culture Blood (11/27/2023 12:53 AM CDT) Report Final Report: No growth Blood 11/27/2023 12:5 3 AM CDT 11/27/2023 1:38 AM CDT Narrative [facility] - 12/01/2023 7:00 AM CDT Collection->Peripheral 1. [...] performance characteristics have been verified by the [facility] Microbiology Laboratory. 5. ?For questions about this culture, contact the Microbiology Laboratory at [phone]. Interpretive data was last revised on 2019. us Suhail Alfredo MD LAB MICROBIOLOGY - GENERAL ORDER INO Final Result Performing Organization Address [facility] Co de Phone Number GO [facility] [place] [address] * Mycobacteriology (AFB) blood culture Blood (11/27/2023 12:53 AM CDT) Report Final Report: No growth Blood 11/27/2023 12:5 3 AM CDT 11/27/2023 1:45 AM CDT Narrative GO [facility] - 01/08/2024 7:01 AM EQUIPMENT MAINT TECH Two separate sites Interpretive data: Mycobacterial blood [...] for optimal patient management. Testing performed by [facility] Microbiology Laboratory ([phone]). Current interpretive data was last revised on 2023. us Suhail Alfredo MD LAB MICROBIOLOGY - GENERAL ORDER INO Final Result Performing Organization Address [facility] Co de Phone Number GO [facility] [place] [address] * Mycobacteriology (AFB) blood culture Blood (11/27/2023 12:53 AM CDT) Report Final Report: No growth Blood 11/27/2023 12:5 3 AM CDT 11/27/2023 1:45 AM CDT Narrative [facility] - 01/08/2024 7:01 AM EQUIPMENT MAINT TECH Two separate sites Interpretive data: Mycobacterial blood [...] for optimal patient management. Testing performed by [facility] Microbiology Laboratory ([phone]). Current interpretive data was last revised on 2023. Suhail Alfredo MD LAB MICROBIOLOGY - GENERAL ORDER INO Final Result Performing Organization Address [facility] de Phone Number [facility] [place] [address] * (ABNORMAL) POCT glucose (11/26/2023 10:20 PM CDT) Glucose, POC 223(H) 70 - 199 mg/dL Blood 11/26/2023 10:2 0 PM CDT 11/26/2023 10:20 PM CDT Suhail Alfredo MD LAB POCT ORDERABLES - DEVICE Fin al Result Performing Organization Address [facility] de Phone Number [facility] [place] [employer] [place] [address] * eGFR (11/26/2023 9:58 PM CDT) eGFR [...] MD LAB BLOOD ORDERABLES Final R esult [facility] [place] [address] * (ABNORMAL) Differential, auto (11/26/2023 9:58 PM CDT) Pathologist [facility] Neutrophil abs 16.6(H) 1.5 - 6.5 K/cumm Imm gran abs 0.2(H) 0.0 - 0.1 K/cumm [facility] Lymphocyte abs 1.7 0.8 - 3.3 K/cumm [facility] Monocyte abs 2.0(H) 0.2 - 0.8 K/cumm [facility] Eosinophil abs 0.0 0.0 - 0.5 K/cumm [facility] Basophil abs 0.1 0.0 - 0.1 K/cumm [facility] Neutrophil pct 80.6 % [facility] Comment: Interpretive Data Percent cell count reference ranges are not reported, since discordance with absolute values may lead to misinterpretation of CBC data. Current Interpretive Data was last revised on 2017. Imm gran pct 0.9 % [facility] Comment: Interpretive Data Percent cell count reference ranges are not reported, since discordance with absolute values may lead to misinterpretation of CBC data. Current Interpretive Data was last revised on 2017. Lymphocyte pct 8.3 % [facility] Comment: Interpretive Data Percent cell count reference ranges are not reported, since discordance with absolute values may lead to misinterpretation of CBC data. Current Interpretive Data was last revised on 2017. Monocyte pct 9.7 % [facility] Comment: Interpretive Data Percent cell count reference ranges are not reported, since discordance with absolute values may lead to misinterpretation of CBC data. Current Interpretive Data was last revised on 2017. Eosinophil pct 0.2 % [facility] Comment: Interpretive Data Percent cell count reference ranges are not reported, since discordance with absolute values may lead to misinterpretation of CBC data. Current Interpretive Data was last revised on 2017. Basophil pct 0.3 % [facility] Comment: Interpretive Data Percent cell count reference ranges are not reported, since discordance with absolute values may lead to misinterpretation of CBC data. Current Interpretive Data was last revised on 2017. Blood 11/26/2023 9:58 PM CDT 11/26/2023 11:34 PM CDT us Maxime Lee MD LAB BLOOD ORDERABLES Final R esult [facility] [place] [address] * (ABNORMAL) CBC with auto differential (11/26/2023 9:58 PM CDT) WBC 20.6(H) 3.8 - 9.9 K/cumm Hgb 8.4(L) 11.9 - 15.5 g/dL [facility] Hct 27.2(L) 35.6 - 45.5 % [facility] Plt 459(H) 150 - 400 K/cumm [facility] MPV 9.2 9.1 - 12.3 fL [facility] RBC 3.31(L) 3.90 - 5.20 M/cumm [facility] MCV 82.2 81.3 - 96.4 fL [facility] MCH 25.4(L) 27.1 - 33.3 pg [facility] MCHC 30.9(L) 32.3 - 35.7 g/dL [facility] RDW CV 17.9(H) 11.1 - 14.9 % [facility] RDW SD 54.5(H) 35.7 - 48.1 fL [facility] NRBC abs 0.00 0.00 - 0.01 K/cumm [facility] Blood 11/26/2023 9:58 PM CDT 11/26/2023 11:34 PM CDT us Maxime Lee MD LAB BLOOD ORDERABLES Final R esult Performing Organization Address City/[facility] Co de Phone Number [facility] [place] [address] * Phosphorus (11/26/2023 9:58 PM CDT) Phosphorus, pl 3.5 2.3 - 4.5 mg/dL Blood 11/26/2023 9:58 PM CDT 11/26/2023 11:34 PM CDT us Maxime Lee MD LAB BLOOD ORDERABLES Final R esult Performing Organization Address City/[facility] Co de Phone Number [facility] [place] [address] * Magnesium (11/26/2023 9:58 PM CDT) Magnesium 1.8 1.4 - 2.5 mg/dL Blood 11/26/2023 9:58 PM CDT 11/26/2023 11:34 PM CDT Maxime Lee MD LAB BLOOD ORDERABLES Final R esult Performing Organization Address City/[facility]/ZIP Co de Phone Number [facility] [place] [address] * (ABNORMAL) Basic metabolic panel (11/26/2023 9:58 PM CDT) Sodium 127(L) 135 - 145 mmol/L Potassium, pl 4.3 3.3 - 4.9 mmol/L [facility] Chloride 90(L) 97 - 110 mmol/L [facility] CO2 26 22 - 32 mmol/L [facility] Anion gap 11 2 - 15 mmol/L [facility] BUN 19 6 - 25 mg/dL [facility] Creatinine 0.91 0.60 - 1.10 mg/dL [facility] Glucose 186 70 - 199 mg/dL [facility] Comment: Interpretive Data Fasting glucose >/= 126 [...] 2022. Calcium 8.6 8.5 - 10.3 mg/dL [facility] Blood 11/26/2023 9:58 PM CDT 11/26/2023 11:34 PM CDT us Maxime Lee MD LAB BLOOD ORDERABLES Final R esult [facility] [place] [address] * POCT glucose (11/26/2023 5:27 PM CDT) Glucose, POC 141 70 - 199 mg/dL Blood 11/26/2023 5:27 PM CDT 11/26/2023 5:27 PM CDT us Suhail Alfredo MD LAB POCT ORDERABLES - DEVICE Fin al Result [facility] [place] [address] * CT Chest Abdomen Pelvis W Contrast [...] DEVICE Fin al Result Performing Organization Address [facility] Co de Phone Number [facility] [place] [address] * POCT glucose (11/26/2023 9:06 AM CDT) Glucose, POC 145 70 - 199 mg/dL Blood 11/26/2023 9:06 AM CDT 11/26/2023 9:06 AM CDT us Suhail Alfredo MD LAB POCT ORDERABLES - DEVICE Fin al Result Performing Organization Address City/[facility] Co de Phone Number [facility] [place] [address] * C. difficile testing Stool (11/26/2023 1:10 AM CDT) [facility] Result Negative Negative Toxin Result Negative Negative [facility] C. diff result Negative, free toxin Negative, free toxin [facility] C. diff interp Negative for toxigenic Clostridioides (Clostridium) difficile. Analysis was performed using a glutamate dehydrogenase antigen detection assay combined with a C. difficile toxin detection assay. [facility] Stool 11/26/2023 1:10 AM CDT 11/26/2023 4:04 AM CDT us Maxime Lee MD LAB MICROBIOLOGY - GENERAL O RDERABLES Final Result Performing Organization Address [facility] [place] [address] * Infection Prevention VRE Culture Stool (11/26/2023 1:10 AM CDT) [facility] Report Final Report: Negative Stool 11/26/2023 1:10 AM CDT 11/26/2023 6:20 AM CDT Narrative [facility] - 11/28/2023 7:46 AM CDT Surveillance culture for Infection Prevention purposes only; results indicate colonization, not infection requiring treatment. Testing performed by [facility] ([phone]). us Suhail Alfredo MD LAB MICROBIOLOGY - GENERAL ORDER INO Final Result Performing Organization Address [facility] [place] [address] * eGFR (11/25/2023 10:52 PM CDT) Pathologist [facility] eGFR 81 >=60 mL/min/1. 73 m2 Comment: [...] MD LAB BLOOD ORDERABLES Final R esult [facility] Department of Laboratories [place], [place] [id number] * aPTT (11/25/2023 10:52 PM CDT) aPTT [...] ORDERABLES Final R esult Performing Organization Address City/[facility]/ZIP Co de Phone Number [facility] [place] [address] * (ABNORMAL) Protime-INR (11/25/2023 10:52 PM CDT) Pathologist [facility] PT 18.8(H) 9.7 - 13.0 sec INR 1.72(H) 0.90 - 1.20 [facility] Comment: Interpretive data Oral anticoagulant therapeutic ranges: [...] ORDERABLES Final R esult Performing Organization Address City/[facility] Co de Phone Number [facility] [place] [address] * (ABNORMAL) CBC without differential (11/25/2023 10:52 PM CDT) Pathologist [facility] WBC 16.6(H) 3.8 - 9.9 K/cumm Hgb 8.6(L) 11.9 - 15.5 g/dL [facility] Hct 28.1(L) 35.6 - 45.5 % [facility] Plt 430(H) 150 - 400 K/cumm [facility] MPV 9.0(L) 9.1 - 12.3 fL [facility] RBC 3.39(L) 3.90 - 5.20 M/cumm [facility] MCV 82.9 81.3 - 96.4 fL [facility] MCH 25.4(L) 27.1 - 33.3 pg [facility] MCHC 30.6(L) 32.3 - 35.7 g/dL [facility] RDW CV 17.9(H) 11.1 - 14.9 % [facility] RDW SD 54.2(H) 35.7 - 48.1 fL [facility] NRBC abs 0.00 0.00 - 0.01 K/cumm [facility] Blood 11/25/2023 10:5 2 PM CDT 11/25/2023 11:05 PM CDT us Maxime Lee MD LAB BLOOD ORDERABLES Final R esult Performing Organization Address City/[facility]/ZIP Co de Phone Number [facility] [place] [address] * Type and screen (11/25/2023 10:52 PM CDT) ABO Rh O Positive Maira, indirect Negative [facility] Blood 11/25/2023 10:5 2 PM CDT 11/25/2023 11:07 PM CDT Narrative [facility] - 11/26/2023 12:00 AM CDT Has the patient had Daratumumab or Isatuximab in the past 6 months?->Unknown us Maxime Lee MD LAB BLOOD BANK TEST ORDERABL ES Final Result Performing Organization Address [facility] Co de Phone Number [facility] [place] [address] * Phosphorus (11/25/2023 10:52 PM CDT) Phosphorus, pl 3.0 2.3 - 4.5 mg/dL Blood 11/25/2023 10:5 2 PM CDT 11/25/2023 11:05 PM CDT us Maxime Lee MD LAB BLOOD ORDERABLES Final R esult Performing Organization Address City/[facility]/ZIP Co de Phone Number [facility] [place] [address] * Magnesium (11/25/2023 10:52 PM CDT) [facility] Magnesium 2.0 1.4 - 2.5 mg/dL Blood 11/25/2023 10:5 2 PM CDT 11/25/2023 11:05 PM CDT us Maxime Lee MD LAB BLOOD ORDERABLES Final R esult [facility] [place] [address] * (ABNORMAL) Basic metabolic panel (11/25/2023 10:52 PM CDT) [facility] Sodium 130(L) 135 - 145 mmol/L Potassium, pl 4.6 3.3 - 4.9 mmol/L [facility] Chloride 95(L) 97 - 110 mmol/L [facility] CO2 26 22 - 32 mmol/L [facility] Anion gap 9 2 - 15 mmol/L [facility] BUN 18 6 - 25 mg/dL [facility] Creatinine 0.81 0.60 - 1.10 mg/dL [facility] Glucose 128 70 - 199 mg/dL [facility] Comment: Interpretive Data Fasting glucose >/= 126 [...] 2022. Calcium 8.7 8.5 - 10.3 mg/dL [facility] Blood 11/25/2023 10:5 2 PM CDT 11/25/2023 11:05 PM CDT us Maxime Lee MD LAB BLOOD ORDERABLES Final R esult [facility] [place] [address] * POCT glucose (11/25/2023 9:45 PM CDT) [facility] Glucose, POC 147 70 - 199 mg/dL Blood 11/25/2023 9:45 PM CDT 11/25/2023 9:45 PM CDT us Maxime Lee MD LAB POCT ORDERABLES - DEVICE Final Result Performing Organization Address City/[facility] Co de Phone Number [facility] [place] [address] * Respiratory pathogen panel Nasopharyngeal (11/25/2023 9:40 PM CDT) [facility] Influenza A RNA Not Detected Not Detected Influenza B RNA Not Detected Not Detected [facility] RSV RNA Not Detected Not Detected [facility] COVID-19 RNA Not Detected Not Detected [facility] Coronavirus 229E RNA Not Detected Not Detected [facility] Coronavirus HKU1 RNA Not Detected Not Detected [facility] Coronavirus NL63 RNA Not Detected Not Detected [facility] Coronavirus OC43 RNA Not Detected Not Detected [facility] Adenovirus DNA Not Detected Not Detected [facility] Metapneumovirus RNA Not Detected Not Detected [facility] Rhinovirus/Enterov irus RNA Not Detected Not Detected [facility] Parainfluenza 1 RNA Not Detected Not Detected [facility] Parainfluenza 2 RNA Not Detected Not Detected [facility] Parainfluenza 3 RNA Not Detected Not Detected [facility] Parainfluenza 4 RNA Not Detected Not Detected [facility] B. pertussis DNA Not Detected Not Detected [facility] B. parapertussis DNA Not Detected Not Detected [facility] C. pneumoniae DNA Not Detected Not Detected [facility] M. pneumoniae DNA Not Detected Not Detected [facility] Nasopharyngeal 11/25/2023 9: 40 PM CDT 11/25/2023 10:01 PM CDT Dung [facility] - 11/25/2023 10:54 PM CDT Is the Patient experiencing symptoms consistent with COVID?->Unknown Surveillance testing for transplant patient?->No ??Interpretive Data The PriceMe FilmArray Respiratory Panel (RP2.1) assay is a [...] assay has FDA clearance for testing of CASE BRIEFER swabs. ??The performance of additional specimen types has been assessed by the performing laboratory. ??The performance characteristics of this assay have been determined by [facility]. Current interpretive data was last revised on 21. us Maxime Lee MD LAB MICROBIOLOGY - GENERAL O RDERABLES Final Result [facility] [place] [address] * SCAN - RADIOLOGY/IMAGING (11/25/2023) Anatomical Region [...] by: Ashley Carrasco M.D. Melissa Rhodes MD IMG MRI PROCEDURES Final Result * Surgical pathology (11/13/2023 12:42 PM CDT) Tissue (Colon, Biopsy) 11/13/2023 12:42 PM CDT Tissue (Colon, Biopsy) 11/13/2023 12:50 PM CDT Narrative PATHOLOGY [facility] - 11/14/2023 3:16 PM CDT EPIC results best viewed via link to PDF [facility] Carmen Vickers Laboratory [place] [address] Note to Patients: This report may contain [...] Gender: ??F : ??1960 (Age: 63) Address: ??[address] [place] [address] ??[id number] Hospital #: ??[id number] Taken:11/13/2023 Received:11/13/2023 Reported: 11/14/2023 Patient Type: [facility] SDS ?? Service: Gastroenterology Location: Physician(s): ??Gildardo Jung [...] Surgical Pathology and Flow Cytometry Departments at [facility] as part of an ongoing quality assurance supervisor trim program and in compliance with federally mandated [...] Surgical Pathology and Flow Cytometry Departments of [facility]. ??It has not been cleared or approved by the U. S. Food and Drug Administration. IMAGES AND SCANNED DOCUMENTS, IF INCLUDED, ONLY VIEWABLE IN PDF VERSION OF REPORT Gildardo Jung MD LAB PATHOLOGY ORDERABLES Samantha lott Result PATHOLOGY [facility] 3rd Floor [place], [place] [phone] * Colonoscopy (11/13/2023 12:20 PM CDT) Anatomical Region Laterality Modality Other Narrative Procedure Note Gildardo Jung MD - 11/13/2023 12:20 PM CDT GI ENDOSCOPY [facility] Patient Name: Darius Russo Procedure Date: 11/13/2023 12:20 PM Date of : 1960 Admit Type: Outpatient Age: 63 Gender: Female Attending MD: Gildardo Jung M.D. Room: [facility] ENDOSCOPY ROOM 3 Note Status: Finalized Procedure: [...] The scope was passed under direct vision.The [facility] [id number] endoscope was introducedthrough the anus with [...] LAB POCT ORDERABLES - DEVICE Final Result [facility] [place] [address] * (ABNORMAL) Hemoglobin A1c (11/04/2023 7:56 AM [...] ORDERABLES F inal Result Performing Organization Address [facility]/ZIP Co de Phone Number [facility] [place] [address] * Hepatitis C antibody Blood (10/27/2023 9:30 [...] last revised on 2019. Testing performed by: [facility], [address] [place] [address]., [id number] Blood 10/27/2023 9:30 AM CDT 10/27/2023 12:43 PM CDT us Gildardo Jung MD LAB MICROBIOLOGY - GENERAL OR DERABLES Edited Result - Final Performing Organization Address [facility]/ZIP Co de Phone Number [facility] [address] [facility]. 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 12/24/2023 Insurance MEDICARE [facility]/PPO Address: [place] [address] [facility]/PPO Address: [address] [address] MEDICARE Advance Directives For more information, please contact: [phone] * Full Code (Latest Code Status on File) Date Activated Date Inactivated Comments 11/25/2023 7:02 PM 12/30/2023 10:03 PM * Full Code Date Activated Date Inactivated Comments 11/13/2023 12:01 PM 11/13/2023 6:29 PM * Full Code Date Activated Date Inactivated Comments 11/05/2023 5:00 PM 11/06/2023 7:28 PM * Full Code Date Activated Date Inactivated Comments 10/02/2023 1:03 PM 10/04/2023 6:43 PM Care Teams Customer Marketing Assistant Relationship Specialty Start Date End Date Kaushal Heath MD [address] [place] [address] PCP - General Internal Medicine 10/30/23 Bigg Delarosa MD [address] [facility] [address] [place] [address] Referring Physician Gastroenterology 10/15/23 Jefe Choe MD [address] [facility] [address] [place] [address] Referring Physician Gastroenterology 10/15/23 Melissa Rhodes MD [address] [facility] GYN[facility] ONCOLOG[facility], [address] [address] Consulting Physician Gynecologic Oncology 10/30/23
--- OUTSIDE RECORDS SUMMARY | 2024-02-08 04:07 | XMS_ITS | Encounter Summary ---
Author Organization [facility] Healthcare Address [address] [place] [address] Care Team Providers Care Ross Furnace Operator Name Role Phone Bigg Delarosa MD Unavailable [phone] Jefe Choe MD Unavailable + Melissa Rhodes MD Unavailable [phone] Kaushal Heath MD Primary Care Provider + [phone] Encounter Details Date Type Department Care Team (Late st Contact Info) Description 12/24/2023 Orders Only [facility] Operating Room [address] [place] [address] Yo Ferreira MD [address] [facility] [phone] [place] [address] Social History Tobacco Use Types Packs/Day Years Used Date Smoking Tobacco: Never Smokeless Tobacco: Never [facility] Utilities Answer Date Recorded In the past 12 months has [employer], gas, oil, or water [employer] threatened to shut off services in your [...] week 11/29/2023 How often do you attend [facility] or scientologist services? 1 to 4 times per year 11/29/2023 Do you belong to any clubs o r organizations such as anabaptist groups, unions, fraternal or athletic groups, or [...] any time in the past 12 m [facility], were you homeless or living in a long-term (including now)? No 11/29/2023 Personal Safety Answer [...] on file documented as of this encounter Plan of Treatment Not on file documented as of this encounter Procedures Procedure Name Priority Date/Time Associated Diagnosis Comments SURGICAL PATHOLOGY Routine 12/24/2023 12 :57 PM CHIEF DESIGN DRAFTER documented in this encounter Results * Surgical pathology (12/24/2023 12:57 PM CHIEF DESIGN DRAFTER) Ovary(ies) with or without tube, tumor 12/24/2023 12:57 PM CHIEF DESIGN DRAFTER 12/24/2023 1:09 PM CHIEF DESIGN DRAFTER Narrative 01/05/2024 5:27 PM CHIEF DESIGN DRAFTER EPIC results best viewed via link to PDF [facility] Carmen Vickers Laboratory [place] [address] Note to Patients: This report may contain [...] SURGICAL PATHOLOGY REPORT FINAL Patient Name: ?? FARHANA RUSSO Gender: ??F : ??1960 (Age: 63) Address: ??[address] [place] [address] ??[id number] Hospital #: ??[id number] Taken:12/24/2023 Received:12/24/2023 Reported: 01/05/2024 Patient Type: [facility] Inpatient ?? Service: Medical Location: [place] [address] Physician(s): ??Yo Ferreira M.D. Kaushal Heath M.D. [...] benign lymph nodes with no histopathologic abnormality /12/30/2023 08:25 By this signature, I attest that [...] & ovary - Mucinous cystadenoma By Narcisa Phan, , PA ([facility])Kerwin HOYOS M.D., Rip Lott M.D. Gross Consultation A: Left tube & ovary Received fresh is a 1,608 g, 18.0 x 16.0 x 7.5 cm ovary and 10.5 x 0.7 cm fallopian tube. The specimen is intact, smooth, and without any gross external lesions. The specimen is opened to reveal a large, multiloculated cyst with copious amount of mucinous fluid. Inspector Balance Wheel Motion sections are frozen as AFR1. By Narcisa Phan MS, PA ([facility])Kerwin M.D., Rip Lott M.D. I personally examined [...] A2 Fallopian tube with bisected fimbriae A3-A8 Inspector Balance Wheel Motion cyst wall, three per cassette Jar 4. [...] Surgical Pathology and Flow Cytometry Departments at [facility] as part of an ongoing lead quality technician program and in compliance with federally mandated [...] Surgical Pathology and Flow Cytometry Departments of [facility]. ??It has not been cleared or approved by the U. S. Food and Drug Administration. IMAGES AND SCANNED DOCUMENTS, IF INCLUDED, ONLY VIEWABLE IN PDF VERSION OF REPORT us Yo Ferreira MD LAB PATHOLOGY ORDERABLES Fin al Result documented in this encounter Visit Diagnoses Not on filedocumented in this encounter Additional Health Concerns Infection Onset Date Last Indicated Resolved Time Ring Surveillance Comment:This flag is used to identify patient who are in house who are being monitored by Infection Prevention. If the patient is discharged and a swab has not been collected, if patient returns to hospital within 7 days a surveillance swab is to be collected (Reach out to IP for order) Patient does NOT need isolation, patient can travel off the floor. 11/26/2023 11/26/2023 12/27/2023 11:50 PM CHIEF DESIGN DRAFTER documented as of this encounter Care Teams Ross Furnace Operator Relationship Specialty Start Date End Date Kaushal Heath MD [address] [place] [address] PCP - General Internal Medicine 10/30/23 Bigg Delarosa MD [address] [place] [address] Referring Physician Gastroenterology 10/15/23 Jefe Choe MD [address] [place] [address] Referring Physician Gastroenterology 10/15/23 Melissa Rhodes MD [address] [facility], [address] [address] Consulting Physician Gynecologic Oncology 10/30/23 documented as of this encounter
--- OUTSIDE RECORDS SUMMARY | 2024-02-08 04:07 | XMS_ITS | Encounter Summary ---
Author Organization [facility] Healthcare Address [address] [place] [address] Care Team Providers Care Cloth Mercerizing Supervisor Name Role Phone Bigg Delarosa MD Unavailable [phone] Jefe Choe MD Unavailable + Melissa Rhodes MD Unavailable [phone] Kaushal Heath MD Primary Care Provider + [phone] Encounter Details Date Type Department Care Team (Late st Contact Info) Description 12/24/2023 Orders Only [facility] [address] [place] [address] Yo Ferreira MD [address] [facility] [place] [phone] [place] [address] Social History Tobacco Use Types Packs/Day Years Used Date Smoking Tobacco: Never Smokeless Tobacco: Never [facility] Utilities Answer Date Recorded In the past 12 months has eyefactive electric, gas, oil, or water company threatened [...] week 11/29/2023 How often do you attend formerly [facility] or [facility] services? 1 to 4 times per year 11/29/2023 Do you belong to any clubs o r organizations such as anglican groups, unions, fraternal or athletic groups, or [...] time in the past 12 m [facility], were you homeless or living [...] Procedure Name Priority Date/Time Associated Diagnosis Comments CYTOLOGY Routine 12/24/2023 12:49 PM PROFESSOR OF BIOLOGY documented in this encounter Results * Cytology (12/24/2023 12:49 PM PROFESSOR OF BIOLOGY) Pelvis (Cytology) 12/24/2023 12:49 PM PROFESSOR OF BIOLOGY 12/24/2023 4:58 PM PROFESSOR OF BIOLOGY Narrative 12/25/2023 3:06 PM PROFESSOR OF BIOLOGY EPIC results best viewed via link to PDF [facility] [place] [address] Note to Patients: This report may contain [...] details. CYTOPATHOLOGY REPORT FINAL Patient Name: ?? FARHANA RUSSO Gender: ??F : ??1960 (Age: 63) Address: ??[address] [place] [address] ??[id number] Hospital #: ??[id number] Taken:12/24/2023 Received:12/24/2023 Reported: 12/25/2023 Patient Type: [facility] Inpatient ?? Service: MANAGER PROCESS IMPROVEMENT Location: [facility] 690 Physician(s): ??Yo Ferreira M.D. Kaushal Heath M.D. Melissa Rhodes M.D. MD Mau Bush MD James Thomas Gross, MD Dhruti X Patel, MD FINAL DIAGNOSIS A. ??Pelvic washing: ? - Negative for malignancy /12/25/2023 15:06 By this signature, I attest that [...] Surgical Pathology and Flow Cytometry Departments at [facility] as part of an ongoing quality and reliability engineer program and in compliance with federally mandated [...] Surgical Pathology and Flow Cytometry Departments of [facility]. ??It has not been cleared or approved by the [place]. S. Food and Drug Administration. Yo Ferreira MD LAB CYTOLOGY ORDERABLES Samantha l Result documented in this encounter Visit Diagnoses [...] the floor. 11/26/2023 11/26/2023 12/27/2023 11:50 PM PROFESSOR OF BIOLOGY documented as of this encounter Care Teams Cloth Mercerizing Supervisor Relationship Specialty Start Date End Date Kaushal Heath MD [address] [place] [address] PCP - General Internal Medicine 10/30/23 Bigg Delarosa MD [address] [facility] [address] [address] Referring Physician Gastroenterology 10/15/23 Jefe Choe MD [address] [facility] 162 [facility] [address] [place] [address] Referring Physician Gastroenterology 10/15/23 Melsisa Rhodes MD [address] [facility] GYNECOLOGIC ONCOLOGY, [address] [address] Consulting Physician Gynecologic Oncology 10/30/23 documented as of this encounter
--- OUTSIDE RECORDS SUMMARY | 2024-02-08 04:07 | XMS_ITS | Encounter Summary ---
Author Organization [facility] Healthcare Address [address] [place] [address] Care Team Providers Care Shade Cutter Name Role Phone Bigg Delarosa MD Unavailable [phone] Jefe Choe MD Unavailable + Melissa Rhodes MD Unavailable [phone] Kaushal Heath MD Primary Care Provider + [phone] Reason for Visit * Auth/Cert (Routine) Specialty Diagnoses / Procedures Referred By Contac t Referred To Contact Diagnoses Ulcerative colitis (HCC) Bilateral ovarian cysts Malnutrition (CMS/HCC) (HCC) Physical deconditioning Procedures na Referral ID Status Reason Start Date Expiration Date Visits Re quested Visits Authorized [id number] 1 1 Encounter Details Date Type Department Care Team (Latest Contact Info) Description 11/25/2023 6:29 PM CDT - 12/30/2023 6:03 PM STUDIO ARTIST Hospital Encounter [facility] [address] [place] [address] Maxime Lee MD [phone] [place] [address] Suhail Alfredo MD [address] [place] [address] Álvaro Radford MD [address] [address] Parmjit Meehan MD [address] [place] [address] Yo Perez MD [phone] [place] [address] Splenic abscess (Primary Dx); Pulmonary nodule; Hepatic abscess; Ulcerative pancolitis with complication (CMS/HCC) (HCC); Diverticulitis of large intestine with perforation without abscess or bleeding Discharge Disposition: Discharge to home, home health skilled care Social History Tobacco Use Types Packs/Day Years Used Date Smoking Tobacco: Never Smokeless Tobacco: Never Tobacco Cessation:Counseling Given: Not Answered [facility] Utilities Answer Date Recorded In the past 12 months has [employer], gas, oil, or water [employer] threatened to shut off services in your [...] week 11/29/2023 How often do you attend [facility] or jainism services? 1 to 4 times per year 11/29/2023 Do you belong to any clubs o r organizations such as mosque groups, unions, fraternal or athletic groups, or [...] any time in the past 12 m [facility], were you homeless or living in [...] Sign Reading Time Taken Comments Blood Pressure 123/63 12/30/2023 12:33 PM STUDIO ARTIST Pulse 95 12/30/2023 12:33 PM STUDIO ARTIST Temperature 36.7 ??C (98.1 ??F) 12/30/2023 12:[address] Respiratory Rate 16 12/30/2023 12:33 PM STUDIO ARTIST Oxygen Saturation 99% 12/30/2023 12:33 PM STUDIO ARTIST Inhaled Oxygen Concentration - - Weight 55.3 kg (122 lb) 12/24/2023 11:05 AM STUDIO ARTIST Height 154.9 cm (5' 0.98 ) 12/23/2023 8:35 AM CS T Body Mass Index 23.06 12/23/2023 8:35 AM STUDIO ARTIST documented in this encounter Discharge Summaries * Debbie Baltazar MD - 12/30/2023 1:26 PM CST Inpatient Discharge Summary BRIEF OVERVIEW Admitting Provider: Maxime Lee MD Discharge Provider: Yo Perez MD Primary Care Physician at Discharge: Kaushal Heath MD [phone] Admission Date: 11/25/2023 Discharge Date: 12/30/2023 Admission Location: [facility] Problems/Diagnoses: Principal Problem: Physical deconditioning Active Problems: Splenic abscess Pulmonary nodule Hepatic abscess Severe malnutrition (CMS/HCC) Consolidation of left upper lobe of lung (CMS/HCC) (HCC) Ulcerative pancolitis with complication (CMS/HCC) (HCC) Fever Resolved Problems: No resolved hospital problems. DETAILS OF HOSPITAL STAY Hospital Course: 63 year old female with recently diagnosed IBD (originally thought to be UC but is now more likely to be Crohn's) who has persistent colitis of her sigmoid colon with microperforation, multiple abscesses of the liver and spleen, and now new left upper lobe lung lesions, some of which are cavitary. She is not a candidate for anti-TNF treatment in the setting of her lung lesions until etiology is determined. Pt also has a new pelvic mass that requires resection. She underwent a left colectomy, end colostomy, LIBRA/BSO on 12/23. Postoperatively her hgb dropped and required to be transfused with 1 unit pRBC. Her diet was advanced and she was tolerating a consistent carb diet without n/v. Her ostomy was productive with stool. She worked with the stoma nurses. Her saba was removed on 12/28. ID was consulted andr recommended a total of 5 days of antibiotics, her last day being 12/28. Home meds: Losartan, Mesalamine PMHx: HTN, DM Daily events: 12/23: Left colectomy, end colostomy, LIBRA/BSO, 15cm left adnexal mass removed 12/24: monitor BP's, leave saba and IVF's today, ostomy teaching 12/25: consistent carb diet, dc'd OVEN HEATER pump, po pain meds, holding lovenox ON: WBC 10.1, Hgb 6.2; Transfused 1uPRBC Hgb 8.5 post-transfusion 12/26: CT A/P d/t Hgb drop, d/c Zosyn given culture resistant, start ceftriaxone 12/27: Restart lvx ppx 12/28: D/c saba, f/u ID recs She was discharged on postoperative day 6, 12/29. Her pain was controled on oral pain medications. She was discharged with a prescription for oxycodone. She was tolerating a consistent carb diet without n/v. Her ostomy was productive. She worked with the ostomy nurses. Her was voiding adequately. Her hgb was stable. She will follow up with Dr. Perez postoperatively. Active Issues Requiring Follow-up: Follow-up with Dr. Perez Test Results Pending at Discharge: Pending Labs Order Current Status Cytology Collected (12/24/23 1249) Surgical pathology Collected (12/24/23 1257) Cryptococcal Antigen, Serum Blood In process Hepatic function panel In process Hepatic function panel In process Hepatic function panel In process Lipase In process Magnesium In process Magnesium In process Magnesium In process Magnesium In process Magnesium In process Osmolality, urine In process Thyroid Function Dorado In process Vitamin D 25 hydroxy In process Mycobacteriology (AFB) blood culture Blood Preliminary result Mycobacteriology (AFB) blood culture Blood Preliminary result Mycobacteriology (AFB) culture and acid-fast stain Bronchial washing Lobe, left upper Preliminary result Mycobacteriology (AFB) culture and acid-fast stain Bronchoalveolar lavage Lobe, left upper Preliminary result Mycobacteriology (AFB) culture and acid-fast stain Tissue Colon Preliminary result Mycology (fungal) culture and stain Tissue Colon Preliminary result Tissue aerobic and anaerobic culture and gram stain Tissue Colon Preliminary result Operative Procedures Performed: Procedure(s): (MUTCH/ MCCOURTCOMBO) RESECTION LEFT COLON COLOSTOMY-END HYSTERECTOMY ABDOMINAL SALPINGO-OOPHORECTOMY PLACEMENT PREOPERATIVE STENT - URETERAL Other Procedures: N/A Pertinent Test Results: N/A Discharge Details Physical Exam at Discharge: Discharge Condition: good Pulse: 95 Resp: 16 BP: 123/63 Temp: 36.7 ??C (98.1 ??F) Weight: 55.3 kg (122 lb) Pertinent Exam Findings at Discharge: Please see progress note dated day of discharge Discharge Disposition: Discharge to home, home health skilled care Code Status at Discharge: Full Code Discharge Instructions: Activity Instructions Discharge Activity: Driving restrictions -Do not drive while taking pain medications Discharge Activity: Lifting restrictions -Do NOT lift greater than 10 pounds until cleared to do so by your surgeon Discharge Activity: Walking -You may walk as tolerated. Discharge activity: Shower -You may shower. No tub baths if you have a wound or incision. Diet Instructions Adult Discharge Diet Diet Type: Return to previous diet Colostomy Nutrition Therapy: Guidelines to Avoid Problems. Please follow for 4-6 weeks after surgery. Nutrition Tips for Optimal Recovery after a Colostomy Surgery: Do not eat high-fiber foods right after surgery because they are harder to digest and can cause blockages. These foods include broccoli, fruit with skins/peels, popcorn, nuts, whole wheat bread, etc.Instead, consume low-fiber foods = 2 grams of fiber or less per serving on the nutrition label. Recommended foods include milk, cheese, yogurt, meat or poultry without skin, fish, bread or pasta madefrom white flour, well-cooked carrots or potatoes without the skin, and fruit without skin or seeds. Avoid foods that cause gas, odors, and diarrhea. Buttermilk, yogurt, kefir, parsley, and cranberry juice may decrease odor. Avoid chewing gum, using straws to drink, and smoking, since they all allow more air to enter your stomach, which can cause more gas. Avoid acidic, spicy, high-sugar, and high-fat foods as they can cause diarrhea. If stool becomes watery, the following foods may thicken stool: bananas, applesauce, pasta, potatoes, rice, cheese, andmarshmallows. When re-introducing a food into your diet, try only one new food at a time. Wait a day or so beforetrying the next food so you can see how your body reacts to the new food. If a food causes you discomfort, try it again in a few weeks to make sure it was the food causing the discomfort. Drink plenty of water, 8-10 cups every day, especially if having a high output of liquid from your stoma. It may help to eat small meals every 2-4 hours instead of 3 larger meals to help decrease gas and get in all the nutrients you need. Always take small bites of food and chew thoroughly, this will help prevent blockages and reduce gas. Avoid lying down within an hour after eating. Take vitamins and minerals as directed per your medical provider. Additional resources are available online from the [employer] [place] at www.ostomy.org/diet-nutrition/ Oral Nutritional Supplements (ONS): Recommended to continue oral nutrition supplements upon discharge. Oral nutrition supplements are [id number] liquid formulas with added nutrients including carbohydrates, protein, vitamins, and minerals. They are usually prescribed by your dietitian or doctors to people who have difficulties meeting their daily nutritional needs from food. In the hospital, you received [employer] 1.0 three times per day. You can also use [employer] 1.4 for additional calories. This can be purchased online. Speak with your doctor or dietitian if you need further options for supplementation. Other Instructions Ambulatory referral to Home Health Service Line: Home Health Primary disciplines requested: [facility]: Wound/Ostomy Care Does the patient have a wound vac?: No Wound Information: ostomy care and teaching, wound check, if abdominal jesu present, remove 14 days post op Requested Start of Care Date: 24-48 hours Physician to follow patient's care (the person listed here will be responsible for signing ongoing orders): Other Comment: Chris I attest that I or another qualified licensed provider saw the patient 90 days prior to or 30 days post admission and this face to face encounter meets the necessary Home Health requirements. The face to face encounter occurred on (date): 12/25/2023 The encounter with the patient was in whole, or in part, for the following medical condition, whichis the primary reason for home health care. (List medical condition): Colitis I certify that, based on my findings, the following services are medically necessary skilled home health services: Wound/Ostomy Care Clinical findings that support the need for home care: Medical condition requiring skilled assessment/education Wound requiring care, assessment, and instruction I certify that my clinical findings support patient's homebound status. Homebound criteria met because: Pain and impaired mobility post-op Call provider for: Temperature -Temperature greater than 101 degrees F Call provider for: difficulty breathing or chest pain Call provider for: extreme fatigue Call provider for: persistent dizziness or light-headedness Call provider for: persistent nausea or vomiting Call provider for: redness, tenderness, or signs of infection (pain, swelling, redness, odor or green/yellow discharge around incision site) Call provider for: severe uncontrolled pain Call provider for: headache, visual disturbances, weakness and speech changes Post-Discharge Dressing Care: No dressing needed. Dressing Removal: No dressing needed. Discharge Medications: Current Medications TAKE these medications acetaminophen 500 mg tablet Take 2 tablets (1,000 mg total) by mouth every 6 (six) hours as needed (pain) Commonly known as: TYLENOL cyanocobalamin 2,500 mcg tablet, sublingual Take 1 tablet (2,500 mcg total) by mouth daily Commonly known as: Vitamin B-12 enoxaparin 40 mg/0.4 mL syringe Inject 0.4 mL (40 mg total) under the skin daily for 21 days For: deep vein thrombosis prevention Commonly known as: LOVENOX loperamide 2 mg capsule Take 1 capsule (2 mg total) by mouth 4 (four) times a day as needed for diarrhea For: diarrhea due to inflammatory bowel disease Commonly known as: IMODIUM losartan 25 mg tablet Take 1 tablet (25 mg total) by mouth daily Commonly known as: MILDRED Notes to patient: Heart , blood pressure control *Check blood pressure before taking* Side effects: backache, dizziness, low blood pressure, cough magnesium oxide 500 mg capsule Take by mouth daily Notes to patient: Supplement Side effects include: nausea/vomiting, slow reflexes, change in heart rate, flushing/ faintness oxyCODONE 5 mg immediate release tablet Take 1 tablet (5 mg total) by mouth every 4 (four) hours as needed for pain For: pain Commonly known as: ROXICODONE pantoprazole DR 40 mg EC tablet Take 1 tablet (40 mg total) by mouth daily Commonly known as: PROTONIX Notes to patient: Acid reflux/ ulcer prevention Side Effects: diarrhea, flatulence, headache polyethylene glycol 17 gram/dose bulk powder Take 17 g by mouth daily For: constipation Commonly known as: MIRALAX potassium chloride ER 10 mEq CR tablet Take 1 tablet/capsule (10 mEq total) by mouth daily Commonly known as: KLOR-CON Notes to patient: Supplement Side effects include: upset stomach, nausea, vomiting, diarrhea Outpatient Follow-Up: Future Appointments Date Time Provider Department Center 01/22/2024 4:00 PM Vanessa Carrasco NP [facility] 02/03/2024 2:30 PM Yo Perez MD C/R [facility] Contact Information for Follow-ups Other Follow-up Next Steps: Follow up Instructions: Please follow up with your PCP on 01/06 for staple removal Questions: Instructions for follow-up (appointment date and time): Please follow up with your PCP on 01/06 forstaple removal Other Follow-up Next Steps: Follow up Instructions: Follow up with GI within 1 week Questions: Instructions for follow-up (appointment date and time): Follow up with GI within 1 week Cosigned by Yo Perez MD at 12/30/2023 4:26 PM STUDIO ARTIST IO ARTIST IO ARTIST documented in this encounter Discharge Instructions * Discharge Instructions* Jhonny Kirby MD - 12/03/2023 3:41 PM CDT Dear Mrs. Russo, You were admitted at [facility] from November 25, 2023 through December 09, 2023 for further evaluation of your IBD and weight loss. During your admission, you were evaluated by several different teams of specialists, including our gastroenterology, pulmonology, infectious disease, colorectal surgery, gynecological oncology, and nutrition teams. We believe there are contained microperforations in your sigmoid colon. Removing the diseased portion of your colon is the best course of treatment to bring your IBD into remission and improve your energy levels, nutrition, and quality of life. You were evaluated by our colorectal surgery team and they will reach out to you closer to your surgery date. They will also coordinate with your gynecological oncology team to remove your ovarian cyst at the same time. In the meantime, it is important that you try to maintain a diet of at least 1600 calories daily as you are able. Good nutrition will improve your recovery after surgery. Throughout your hospitalization, we continued to treat you with antibiotics and closely monitored your nutritional status. You should continue taking this course of antibiotics at home, and our infectious disease team will provide further guidance regarding your antibiotics at the time of your surgery. While you were admitted, we performed a CT scan which found nodules in your lungs which were concerning for an infection. Because an infection would preclude treatment of your IBD with Remicade we performed extensive testing, including a bronchoscopy with lung biopsies, to characterize these lesions and detect any infection present. Our tests have not found a definitive cause for these lung nodules, our suspicion for an infection is high enough that we believe the risk of worsening a possible infection in your lungs, as well as the infections in your liver and spleen, by starting Remicade risks outweigh the benefits. You should continue taking the following medications: Ciprofloxacin 500 mg twice by mouth Vitamin B12 2500 once daily Imodium 2mg up to 4 times a day as needed for diarrhea Losartan 25mg daily Magnesium oxide 500mg daily Metronidazole (Flagyl) 500 mg twice a day Pantoprazole (Protonix) 40mg daily Potassium Chloride 10mEq CR tablet daily You should start taking the following medications: Folic acid 1 mg tablet daily Mucinex 600mg every 12 hours Mutlivitamin with folic acid 400mcg daily Thiamine 100mg daily You should stop taking the following medications: Ferrous sulfate 325mg daily Mesalamine 1000g daily Please follow up with your primary care physician, Dr. Heath, and your push bench operator helper, Dr. Jung. We have updated them about your hospitalization. * Discharge Instr - Diet* Vonda Raose, RD - 12/30/2023 9:17 AM STUDIO ARTIST Colostomy Nutrition Therapy: Guidelines to Avoid Problems. Please follow for 4-6 weeks after surgery. Nutrition Tips for Optimal Recovery after a Colostomy Surgery: Do not eat high-fiber foods right after surgery because they are harder to digest and can cause blockages. These foods include broccoli, fruit with skins/peels, popcorn, nuts, whole wheat bread, etc.Instead, consume low-fiber foods = 2 grams of fiber or less per serving on the nutrition label. Recommended foods include milk, cheese, yogurt, meat or poultry without skin, fish, bread or pasta madefrom white flour, well-cooked carrots or potatoes without the skin, and fruit without skin or seeds. Avoid foods that cause gas, odors, and diarrhea. Buttermilk, yogurt, kefir, parsley, and cranberry juice may decrease odor. Avoid chewing gum, using straws to drink, and smoking, since they all allow more air to enter your stomach, which can cause more gas. Avoid acidic, spicy, high-sugar, and high-fat foods as they can cause diarrhea. If stool becomes watery, the following foods may thicken stool: bananas, applesauce, pasta, potatoes, rice, cheese, andmarshmallows. When re-introducing a food into your diet, try only one new food at a time. Wait a day or so beforetrying the next food so you can see how your body reacts to the new food. If a food causes you discomfort, try it again in a few weeks to make sure it was the food causing the discomfort. Drink plenty of water, 8-10 cups every day, especially if having a high output of liquid from your stoma. It may help to eat small meals every 2-4 hours instead of 3 larger meals to help decrease gas and get in all the nutrients you need. Always take small bites of food and chew thoroughly, this will help prevent blockages and reduce gas. Avoid lying down within an hour after eating. Take vitamins and minerals as directed per your medical provider. Additional resources are available online from the [employer] [place] at www.ostomy.org/diet-nutrition/ Oral Nutritional Supplements (ONS): Recommended to continue oral nutrition supplements upon discharge. Oral nutrition supplements are tsilp-to-esrho liquid formulas with added nutrients including carbohydrates, protein, vitamins, and minerals. They are usually prescribed by your dietitian or doctors to people who have difficulties meeting their daily nutritional needs from food. In the hospital, you received [employer] 1.0 three times per day. You can also use [employer] 1.4 for additional calories. This can be purchased online. Speak with your doctor or dietitian if you need further options for supplementation. IO ARTIST IO ARTIST IO ARTIST * Discharge Instr - Other Orders* Shazia Mario RN - 12/30/2023 2:36 PM STUDIO ARTIST Home Health agency: [facility] You should be contacted by the home health care agency within 1-2 days regarding scheduling a visit. If you don't hear from them, please call the number listed above to follow-up. Thank you IO ARTIST * Attachments The following attachments cannot be sent through Care Everywhere. * Colectomy (Discharge Care) (Mauritanian) * Colectomy Diet (Discharge Care) (Mauritanian) documented in this encounter Medications at Time of Discharge acetaminophen (TYLENOL) 500 mg tablet Take 2 tablets (1,000 mg total) by mouth every 6 (six) hours as needed (pain) 12/30/2023 cyanocobalamin (Vitamin B-12) 2,500 mcg tablet, sublingual Take 1 tablet (2,500 mcg total) by mouth daily loperamide (IMODIUM) 2 mg capsuleIndications :Diarrhea Secondary to Inflammatory Bowel Disease Take 1 capsule (2 mg total) by mouth 4 (four) times a day as needed for diarrhea losartan (COZAAR) 25 mg tablet Take 1 tablet (25 mg total) by mouth daily 07/31/2023 magnesium oxide 500 mg capsule Take by mouth daily oxyCODONE (ROXICODONE) 5 mg immediate release tabletIndications: Pain Take 1 tablet (5 mg total) by mouth every 4 (four) hours as needed for pain 15 tablet 12/30/[address] (PROTONIX) 40 mg EC tablet Take 1 tablet (40 mg total) by mouth daily 09/30/2023 polyethylene glycol (MIRALAX) 17 gram/dose bulk powderIndications: constipation Take 17 g by mouth daily 116 g 2 12/30/2023 potassium chloride ER 10 mEq CR tablet Take 1 tablet/capsule (10 mEq total) by mouth daily 10/30/2023 enoxaparin (LOVENOX) 40 mg/0.4 mL syringeIndications :Deep Vein Thrombosis Prevention Inject 0.4 mL (40 mg total) under the skin daily for 21 days 8.4 mL 12/30/2023 4 documented as of this encounter Ordered Prescriptions Prescription Sig Dispense Quantity Refills Last Filled Start Date End Date oxyCODONE (ROXICODONE) 5 mg immediate release tabletIndications: Pain Take 1 tablet (5 mg total) by mouth every 4 (four) hours as needed for pain 15 tablet 12/30/2023 polyethylene glycol (MIRALAX) 17 gram/dose bulk powderIndications: constipation Take 17 g by mouth daily 116 g 2 12/30/2023 acetaminophen (TYLENOL) 500 mg tablet Take 2 tablets (1,000 mg total) by mouth every 6 (six) hours as needed (pain) 12/30/2023 enoxaparin (LOVENOX) 40 mg/0.4 mL syringeIndications :Deep Vein Thrombosis Prevention Inject 0.4 mL (40 mg total) under the skin daily for 21 days 8.4 mL 12/30/2023 4 documented in this encounter Discharge Disposition Disposition Code Departure Means Destination Comment s Discharge to home, home health skilled care documented in this encounter Progress Notes * Shazia Mario RN - 12/30/2023 2:39 PM CST 10:33 am ROMAIN called [facility] and and left a voicemail for Katherine in intake. 11:19 am Katherine returned CM's phone call and confirmed agency was able to accept with a SOC of Friday or Friday and to fax referral to fax# [phone]. CM faxed referral and confirmed this agency was patient's first choice and notified patient of the SOC date. Patient informed CM that she [facility] is [facility] employer. CM faxed discharge summary and updated documentation from today to agency. 2:46 pm CM called service parts coordinator, Katherine, and notified of patient's discharge. Katherine confirmed patient was on the scheduled to be seen FridayJanuary 02. 12/26/23 1318 Discharge Summary Discharge Disposition Home health care Recommended Discharge Level of [facility] care Actual Discharge Level of [facility] health care Does Actual Level of Care Match Care Team Recommendation? Yes Post Acute Care Plan Home Care Services Yes (new colostomy) Type of Home Care Services Nurse visit Home Care Services Name and Phone Number [facility] OP Services N/A DME N/A Post Acute Care Facility N/A Discharge Additional Assistance Does the patient need discharge transport arranged? No (per family) Discharge Transportation Communication Mode of transport has been discussed with the patient/family. All are agreeable to the plan and understand their responsibilities to ensure the safe transfer. No further CM/SW intervention is anticipated at this time. Post Discharge Care Provider Post Discharge Care Plan DC Summary has been faxed to next level of care provider (see Follow Up Providers) Per medical team, patient is medically stable for discharge at this time. Follow up appointment hasbeen scheduled per medical team. Transportation will be provided by patient's spouse at the bedside. Patient and/or family are agreeable with the plan. If any further discharge needs arise, please contact the covering embedded case manager. IO ARTIST * Shazia Mario, RN - 12/30/2023 1:59 PM CST 12/30/23 0497 Communications Important Message from Medicare notice given to patient? Yes MEDINA letter given? Not Applicable Patient choice (Home Health/Hospice) list given to patient/credit and collections representative? Yes [facility] Facility list given to patient/credit and collections representative? Not Applicable Fiduciary Responsibility Patient/Designated decision maker was informed of [facility] fiduciary relationship as necessary Notice of Non-Covered Continued Stay or Hospital Services Given to Patient Not Applicable IM letter completed with patient/credit and collections representative at bedside. Patient/credit and collections representative were informed ofthe planned discharge date, the date the beneficiary's financial liability begins, the beneficiary's appeal rights, and how and when to initiate an appeal. Patient/credit and collections representative were provided a copy of the IM letter and IM letter was placed in unit???s designated medical record bin to be uploaded into the patient???s chart. IO ARTIST * Vonda Rao RD - 12/30/2023 12:22 PM CST NUTRITION ASSESSMENT Nutrition Status: Patient meets criteria for severe chronic malnutrition, reference AAIM ([place]) guidelines. Present on Admission: Yes REASON FOR ASSESSMENT: Follow Up Encounter Date: 12/30/23 12:23 PM Admission Date: 11/25/2023 LOS: 35 days HPI: Patient is a 63 y.o. female female PMH HTN, T2DM, s/p cholecystectomy, a large adnexal mass c/f malignancy, and suspected crohn???s colitis who presents for active colitis. Objective Past Medical History: Diagnosis Date Adrenal mass (HCC) Diabetes mellitus (HCC) Diverticulitis Hypertension Past Surgical History: Procedure Laterality Date CHOLECYSTECTOMY 08/2023 COLONOSCOPY 2021 TUBAL LIGATION Social History Tobacco Use Smoking status: Never Smokeless tobacco: Never Substance and Sexual Activity Drug use: Never Sexual activity: Defer Alcohol Use: Not At Risk (11/13/2023) AUDIT-C Frequency of Alcohol Consumption: Never Average Number of Drinks: Patient does not drink Frequency of Binge Drinking: Never MEDICATION/LAB REVIEW: Scheduled Meds: acetaminophen, 1,000 mg, oral, Q6H DARIN enoxaparin, 40 mg, subcutaneous, Daily-2100 gabapentin, 300 mg, oral, Q12H DARIN ibuprofen, 600 mg, oral, Q8H DARIN insulin lispro, 0-4 Units, subcutaneous, Nightly insulin lispro, 0-5 Units, subcutaneous, TID with meals pantoprazole DR, 40 mg, oral, Daily polyethylene glycol, 17 g, oral, Daily sodium chloride 0.9%, 0.5-20 mL, intra-catheter, Q8H DARIN (ALT) Continuous Infusions: PRN Meds: sodium chloride 0.9% dextrose OR dextrose glucagon naloxone ondansetron oxyCODONE prochlorperazine sodium chloride 0.9% Recent Labs Lab Units 12/28/238 12/26/23 2232 12/25/23 2046 SODIUM mmol/L 138 < > 133* POTASSIUM PLASMA mmol/L 4.4 < > 3.9 CHLORIDE mmol/L 104 < > 99 CO2 mmol/L 26 < > 24 BUN SERUM mg/dL 20 < > 20 CREATININE mg/dL 0.79 < > 1.07 [id number] mL/min/1.73 m2 83 < > 58* CALCIUM mg/dL 8.1* < > 7.8* ALBUMIN g/dL -- -- 2.1* < > = values in this interval not displayed. Recent Labs Lab Units 12/30/23 0818 12/29/23200112/29/23 1735 12/29/23 1155 12/29/23 0757 12/28/238 12/28/23 2113 GLUCOSE mg/dL -- -- -- -- -- 135 -- POC GLUCOSE MONITOR mg/dL 109 142 166 130 122 -- 160 No results found for: ALT , AST , BILIRUBIN , ALKPHOS , LIPASE Lab Results Component Value Date HGBA1C 5.7 (H) 11/04/2023 HDL 27 (L) 12/04/2023 LDLCALC 28 12/04/2023 CHOL 71 12/04/2023 TRIG 75 12/04/2023 NURSING ASSESSMENT: Last BM Date: 12/29/23 Bowel Sounds (All Quadrants): Hypoactive Emesis Assessment Emesis Color/Appearance: Clear, Yellow Juliano Scale Score: 20 Skin Integrity: Surgical incision Edema: No pitting Vital Signs BP: 128/63 Temp: 36.7 ??C (98.1 ??F) Pulse: 95 Resp: 15 SpO2: 99 % Intake/Output Summary (Last 24 hours) at 12/30/2023 1223 Last data filed at 12/30/2023 1045 Gross per 24 hour Intake 1050 ml Output 1500 ml Net -450 ml Adult Malnutrition Scoring Tool (MST) What diet do you follow at home?: regular diet Have You Recently Lost Weight Without Trying?: Yes (Comment) How Much Weight Have You Lost?: 34 lb or more Have you been eating poorly because of a decreased appetite?: Yes Malnutrition Screening Tool (MST) Score: 5 Hunger Screen - Admission Within the past 12 months the food we bought just didn't last and we didn't have money to get more.: Never true Within the past 12 months we worried whether our food would run out before we got money to buy more.: Never true Within the past 12 months, you worried that your food would run out before you got the money to buymore.: Never true Within the past 12 months, the food you bought just didn't last and you didn't have money to get more.: Never true Anthropometrics Weight: 55.3 kg (122 lb) Admission Weight : 58.7 kg Weight Change: -0.06 kg (-0.13 lbs) IBW/kg (Calculated) : 47.6 kg Height: 154.9 cm (5' 0.98 ) Weight in (lb) to have BMI = 25: 132 BMI (Calculated): 23.1 Wt Readings from Last 10 Encounters: 12/24/23 55.3 kg (122 lb) 11/25/23 58.2 kg (128 lb 3.2 oz) 11/13/23 63 kg (139 lb) 11/05/23 61.5 kg (135 lb 9.6 oz) 10/27/23 63 kg (139 lb) 10/23/23 63 kg (139 lb) 10/03/23 66.9 kg (147 lb 7.8 oz) 10/02/23 67.4 kg (148 lb 8 oz) ESTIMATED NEEDS: Weight Used for Equation Calculations (RD Determined): 58.7 kg (129 lb 6.6 oz) Total Kcal/kg Estimated Needs : 1770.85 Kcal/k. Type of Weight Used for Estimated Kcals: Current Total Protein Estimated Needs (gm): 71.94 Protein Needs Based on g/k.3 Type of Weight Used for Estimated Protein : Current Total Fluid Estimated Needs: 1770.85 Fluid Needs Based on : 1 ml/kcal Type of Weight Used for Estimated Fluid Needs: Current Dietary Orders (From admission, onward) Start Ordered 12/26/23 1100 Oral Nutrition Supplements ([facility]) Select Supplement: [employer] English 1.0 - Chocolate, VARY/multiple Flavor All Meals Question Answer Comment ([facility]) Select Supplement: [employer] English 1.0 - Chocolate ([facility]) Select Supplement: VARY/multiple Flavor 12/26/23 0825 12/26/23 0823 Adult Diet Restricted; Consistent Carbohydrate Diet effective now Question Answer Comment ([facility]) Diet type Restricted Diabetic: Consistent Carbohydrate 12/26/23 0825 12/24/23 2100 Bedtime snack At bedtime Comments: If bedtime BG is less than 100mg/dl, give patient a 15 gram carbohydrate snack. 12/24/23 1840 Allergies: Reviewed. IMPRESSION: Screened per f/u. Pt s/p left colectomy, end colostomy. Pt is on a consistent carb diet. Intake varies, eating 25-75% of recent meals. Pt is drinking Addictive BID. No new wt since 12/22. Wt Readings from Last 10 Encounters: 12/24/23 55.3 kg (122 lb) 11/25/23 58.2 kg (128 lb 3.2 oz) 11/13/23 63 kg (139 lb) 11/05/23 61.5 kg (135 lb 9.6 oz) 10/27/23 63 kg (139 lb) 10/23/23 63 kg (139 lb) 10/03/23 66.9 kg (147 lb 7.8 oz) 10/02/23 67.4 kg (148 lb 8 oz) Weights/Vitals Height Weight (LB) Weight (KG) Weight Method 12/03/2023 127 lb 6.4 oz 57.788 kg Standing scale 12/04/2023 5' 1 127 lb 57.607 kg 12/09/2023 125 lb 3.2 oz 56.79 kg Standing scale 12/10/2023 130 lb 4.7 oz 59.1 kg Bed scale 12/16/2023 123 lb 9.6 oz 56.065 kg Standing scale AAIM ([place]) MALNUTRITION ASSESSMENT: Date of completion: 11/27/2023 ASPEN/AND Malnutrition Screening: Chronic illness or injury severe Subcutaneous Fat Loss Severity: Severe Muscle Mass Loss Severity: Severe Patient Meets Criteria for Severe Malnutrition: Yes NUTRITION FOCUSED PHYSICAL EXAM: Completed. Subcutaneous Fat Loss Orbital Region - Surrounding the Eye: Hollow look Upper Arm Region - Triceps/Biceps: Some depth pinch but not ample Muscle Loss Moravian Region - Temporalis Muscle: Slight depression Clavicle Bone Region - Pectoralis Major, Deltoid, Trapezius Muscles: Protruding, prominent bone Clavicle and Acromion Bone Region - Deltoid Muscle: Shoulder to arm joint looks square Anterior Thigh and Patellar Region - Quadricep Muscle: Depression along thigh Posterior Calf Region - Gastrocnemius Muscle: Thin, minimal to no muscle definition NUTRITION DIAGNOSIS: Nutrition Diagnosis 1: Protein-Calorie Malnutrition - Severe Related to: Chronic illness/injury Evidenced by: Physical finding INTERVENTION(S): Summary: Medical food supplement, Encouragement, Meals and snacks Continue [employer] 1.4 instead of 1.0 (455 calories per bottle) Pt needs to have 1400 calories just to maintain her wieght but up to 1700 calories to slowly gain weight Ordered new wt. Educated pt on following colostomy diet after discharge. Discussed eating small, frequent meals. Encouraged drinking 6-8 cups of water per day. Discussed foods to limit/avoid. Handout provided and reviewed ([facility] handout). Answered all questions. RD following. GOAL(S): Promote slow and steady weight gain 1/2 to 1 pound per week MONITORING/EVALUATION: Appetite, Discharge plans, I/O, Plan of care, Labs Vonda Rao RD, LD Clinical Travel Dietitian [facility] On-Call/Weekend: [phone] IO ARTIST * Hilaria Dooley - 12/30/2023 8:51 AM CST Occupational Therapy Occupational Therapy Progress Note NOTE: This is a summary note of the brown components of the treatment session. For full details, review chart for all flowsheets documented on by this occupational therapy clinician on this date. Vitalsigns documented in vital signs flowsheet. Care plan progress documented in Care Plan Activity. For questions, please review the treatment team and contact the occupational therapist currently assigned to this patient. If an occupational therapist is not assigned to this patient, please call [phone]. 12/30/23 7026 General Session Type Treatment (and d/c) OT Received On 12/30/23 Safe Environment Arm band checked;Gait belt not utilized, see comment;Patient found in supine Subjective Agreeable to Therapy Family/Caregiver Present No Precautions Precautions Abdominal;Fall risk Precaution Comments verbally reviewed abdominal precautions prior to ADLs/mobility; PPE worn duringentire session 2/2 contact precautions Pain Assessment Pain Assessment 0-10 Pain Score 3 Pain Location Abdomen Pain Orientation Right Pain Interventions Repositioned Balance Balance Yes Static Sitting Balance Static Sitting-Balance Support Bilateral upper extremity supported;Feet supported Static Sitting-Sitting Surface Bed Static Sitting-Level of Assistance Independent Dynamic Sitting Balance Dynamic Sitting-Balance Support Unilateral upper extremity supported;Feet supported Dynamic Sitting-Balance Forward lean;Lateral lean;Reaching for objects;Reaching across midline Dynamic Sitting-Sitting Surface Bed Dynamic Sitting-Level of Assistance Close supervision Static Standing Balance Static Standing-Balance Support Bilateral upper extremity supported (WW) Static Standing-Standing Surface Floor Static Standing-Level of Assistance Close supervision Static Standing-Comment/# of Minutes safety d/t impaired balance Dynamic Standing Balance Dynamic Standing-Balance Support No upper extremity supported Dynamic Standing-Balance Lateral lean;Forward lean;Reaching for objects;Reaching across midline Dynamic Standing-Standing Surface Floor Dynamic Standing-Level of Assistance Close supervision Dynamic Standing-Comments safety during grooming task standing at sink ADL ADLS (WDL) X Grooming Grooming: Where assessed Standing at sink Grooming: Level of assistance Standby Assist (set up task, SBA balance) Grooming: Assistance with Safety;Balance LE Dressing LE Dressing: Where assessed Edge of bed;Sitting LE Dressing: Level of assistance Standby Assist (ind task, SBA balance) LE Dressing: Assistance with Safety;Increased time to complete;Balance (increased time 2/2 pain) Toileting Toileting: Where assessed Toilet Toileting: Level of assistance Standby Assist Toileting: Assistance with Safety;Balance Room Mobility Room Mobility: Where assessed through room Health Management: Equipment Walker Room Mobility: Level of Assistance Standby Assist Room Mobility comment for safety d/t balance Bed Mobility Bed Mobility Yes Bed Mobility 1 Bed Mobility From 1 Supine Bed Mobility Type 1 To Bed Mobility to 1 Edge of bed Level of Assistance 1 Standby Assist Bed Mobility Comments 1 HOB elevated via log roll technique Transfers Transfer Yes Transfer 1 Transfer From 1 Sit Transfer Type 1 To and from Transfer to 1 Stand Technique 1 Sit to stand;Stand to sit Transfer Device 1 Wheeled walker Transfer Level of Assistance 1 Standby Assist Trials/Comments 1 for safety, ensure controlled descent Toilet Transfers Toilet Transfer From Bed Toilet Transfer Type To and from Toilet Transfer to Standard toilet Toilet Transfer Technique Ambulating Toilet Transfer: Equipment Wheeled walker Toilet Transfers Supervision Toilet Transfers Comments safety to ensure controlled descent RUE Assessment RUE Assessment WFL LUE Assessment LUE Assessment WFL Cognition Overall Cognitive Status WFL Arousal/Alertness Alert Attention Span Appears intact Memory Appears intact Current communication Appears Intact Orientation Oriented X4 (person, place, time, situation) Following Commands Follows all commands and directions without difficulty Safety Judgment Good awareness of safety precautions Awareness of Errors Good awareness of errors made Insight Fully aware of deficits Problem Solving Able to problem solve independently Compliance/Behavior Easy to engage Perseveration Not present Other Comments Comments pt seen for OT treatment and d/c session this date. reviewed OT role and pt verbalized understanding. reviewed abdominal precautions prior to ADLs/mobility and pt demo understanding. reviewed OT POC and d/c recs. pt with no further questions. Daily Activity - 6 Clicks Putting on and taking off regular lower body clothing 3 Bathing 3 Toileting 3 Putting on and taking off upper body clothing 4 Personal Grooming 3 Eating Meals 4 Total Score (range 6-24) 20 Score Interpretation 42.03 Safe Environment End of Therapy Session Safe Environment End of Therapy Session Call light within reach;Overbed table within reach;Patient left sitting at edge of bed;Bed in lowest position with wheels locked Assessment Barriers to Discharge None Plan Plan If this is the last note, consider this the discharge summary;Discharge Recommendation/Plan OT Recommendation Home with family;Home with 24 hour supervision;No further OT indicated OT Recommendation/Plan Comments all goals met or adequate for discharge OT Frequency during current admission Discharge from this Service Progress during current admission Discontinue OT OT - OK to Discharge Yes OT Time Calculation OT Start Time 850 OT Stop Time 907 OT Time Calculation (min) 17 min Multi-Disciplinary Problems (from Occupational Therapy) Active Problems Problem: Dressings Lower Extremities Start Date: 12/25/23 Goal Start Date Expected End Date End Date STG - Patient to complete lower body dressing with SPV 12/25/23 01/01/24 -- Problem: Toileting Start Date: 12/25/23 Goal Start Date Expected End Date End Date STG - Patient will complete toileting tasks with SPV 12/25/23 01/01/24 -- Problem: Transfers Start Date: 12/25/23 Goal Start Date Expected End Date End Date STG - Patient will perform toilet transfer with SPV 12/25/23 01/01/24 -- Problem: OT Misc Start Date: 12/25/23 Goal Start Date Expected End Date End Date OT LTG - Pt will complete functional transfers and ADLs with mod I 12/25/23 01/22/24 -- Cosigned by Olivia Sandoval OT at 12/30/2023 11:55 AM STUDIO ARTIST IO ARTIST IO ARTIST * Meka Flores, INDUSTRIAL SECURITY ANALYST - 12/30/2023 6:45 AM CST [facility] Daily Progress Note Colon and Rectal Surgery PATIENT NAME: Darius Russo : 1960 ADMIT DATE: 11/25/2023 6:29 PM LOS: 35 Subjective CHIEF COMPLAINT: S/p left colectomy, end colostomy, LIBRA, BSO INTERVAL HISTORY: VSS. Pain adequately controlled on current regimen. She is tolerating a consistent carb diet without n/v. Colostomy in place, 100cc output in last 24 hrs. Abdomen mildly distended. Will give miralax this am. Objective MEDICATIONS: Scheduled: acetaminophen, 1,000 mg, oral, Q6H DARIN enoxaparin, 40 mg, subcutaneous, Daily-2100 gabapentin, 300 mg, oral, Q12H DARIN ibuprofen, 600 mg, oral, Q8H DARIN insulin lispro, 0-4 Units, subcutaneous, Nightly insulin lispro, 0-5 Units, subcutaneous, TID with meals pantoprazole DR, 40 mg, oral, Daily polyethylene glycol, 17 g, oral, Daily sodium chloride 0.9%, 0.5-20 mL, intra-catheter, Q8H DARIN (ALT) Infusions: PRN: sodium chloride 0.9% dextrose OR dextrose glucagon naloxone ondansetron oxyCODONE prochlorperazine sodium chloride 0.9% VITALS: 24hr Min/Max: Temp Min: 36.3 ??C (97.3 ??F) Max: 36.8 ??C (98.2 ??F) Pulse Min: 93 Max: 102 BP Min: 122/73 Max: 160/83 Resp Min: 15 Max: 16 SpO2 Min: 94 % Max: 100 % Most Recent: Vitals: 12/30/23 0210 12/30/23 0817 12/30/23 0855 12/30/23 0910 BP: 160/83 128/62 128/59 128/63 BP Location: Right arm Left arm Patient Position: Lying;HOB 30 degrees Lying Pulse: 95 93 93 95 Resp: 16 15 Temp: 36.3 ??C (97.3 ??F) 36.7 ??C (98.1 ??F) TempSrc: Oral Oral SpO2: 100% 100% 100% 99% Weight: Height: I/O last 2 completed shifts: In: 590 [P.O.:590] Out: 1850 [Urine:1750; Stool:100] Intake/Output Summary (Last 24 hours) at 12/30/2023 1132 Last data filed at 12/30/2023 1045 Gross per 24 hour Intake 450 ml Output 1500 ml Net -1050 ml PHYSICAL EXAM: Constitutional: NAD, well developed, well nourished. A&O x 4. HEENT: PERRL, EOMI, anicteric. Lungs: Unlabored breathing. Trachea midline. GI: Abdomen soft, appropriately tender to palpation, non-distended. Ostomy: Bonaparte, no stool/flatus present. Wound: Incision clean, dry, intact with jesu. No erythema/swelling/drainage noted. Drains: Saba intact with clear urine present. Skin: No new rashes, lesions or bruises Extremities: Normal without edema or cyanosis Neurologic: Non-focal, CNII-XII grossly intact Psychiatric: Normal affect and mood. LAB/ RADIOLOGY/ DIAGNOSTIC REVIEW: Recent Labs Lab Units 12/28/23221712/27/23205512/27/23 0339 WBC K/cumm 10.9* 10.9* 11.2* HEMOGLOBIN g/dL 9.3* 8.5* 8.5* HEMATOCRIT % 29.5* 27.6* 26.7* PLATELETS K/cumm 384 364 288 Recent Labs Lab Units 12/30/23 0818 12/29/23200112/29/23 1735 12/29/2375612/28/23221712/27/23205612/27/23205512/27/2375312/26/232231 SODIUM mmol/L -- -- -- -- 138 -- 137 -- 137 POTASSIUM PLASMA mmol/L -- -- -- -- 4.4 -- 4.0 -- 3.9 CHLORIDE mmol/L -- -- -- -- 104 -- 104 -- 103 CO2 mmol/L -- -- -- -- 26 -- 27 -- 26 BUN SERUM mg/dL -- -- -- -- 20 -- 22 -- 21 CREATININE mg/dL -- -- -- -- 0.79 -- 0.90 -- 1.05 GLUCOSE mg/dL -- -- -- -- 135 -- 98 -- 121 POC GLUCOSE MONITOR mg/dL 109 142 166 < > -- < > -- < > -- CALCIUM mg/dL -- -- -- -- 8.1* -- 8.0* -- 7.7* < > = values in this interval not displayed. I have reviewed the laboratory results. ASSESSMENT/ PLAN: Darius Russo is a 63 y.o. female with Physical deconditioning, status post open left colon resection and colostomy, LIBRA/BSO. Now 6 Days Post-Op Acute pain control Diet: Adult Diet Restricted; Consistent Carbohydrate DVT PPx: Lovenox, SCDs Activity: with assist, PT, OT Dispo: floor - F/U ID for antibiotic recommendations - miralax - Ostomy teaching Code status: Full Code PT/OT Dispo Rec: PT Recommendation/Plan: Home with 24 hour supervision / OT Recommendation: Home with family, Home with 24 hour supervision, No further OT indicated [facility] Colon and Rectal Surgery Cosigned by Yo Perez MD at 12/30/2023 12:19 PM STUDIO ARTIST IO ARTIST IO ARTIST * Kena Brown, PT - 12/29/2023 2:53 PM CST Physical Therapy Physical Therapy Progress Note NOTE: This is a summary note of the brown components of the treatment session. For full details, review chart for all flowsheets documented on by this physical therapy clinician on this date. Vital signs documented in vital signs flowsheet. Care plan progress documented in Care Plan Activity. For questions, please review the treatment team and contact the PT or FITNESS AND WELLNESS COORDINATOR currently assigned to this patient. If a physical therapy clinician is not assigned to this patient, please call [phone]. 12/29/23 1454 PT Last Visit Session Type Treatment (and discharge) PT Received On 12/29/23 Safe Environment Arm band checked;Session completed bedside;Gait belt utilized for all out of bed mobility;Patient found in supine (gait belt worn high to avoid colostomy) Subjective Agreeable to Therapy Additional Pertinent History UC with multiple admissions 2023 for sigmoid diverticulitis c/b colonic microperforation; adnexal mass; HTN; DM2 Family/Caregiver Present Yes (Patient's spouse) Precautions Precautions Fall risk;Abdominal Precaution Comments Patient required minimal verbal cues to maintain precautions during mobility. Activity Tolerance Activity Tolerance Comments LAWSON: somewhat hard Pain Assessment Pain Assessment 0-10 Pain Score 2 Pain Type Surgical pain Pain Location Abdomen Pain Interventions Distraction;Ambulation Cognition Arousal/Alertness Alert;Appropriate responses to stimuli Orientation Oriented X4 (person, place, time, situation) Following Commands Follows all commands and directions without difficulty Balance Balance Yes Static Sitting Balance Static Sitting-Balance Support No upper extremity supported;Feet supported Static Sitting-Sitting Surface Bed Static Sitting-Level of Assistance Independent Static Standing Balance Static Standing-Balance Support Bilateral upper extremity supported Static Standing-Standing Surface Floor Static Standing-Level of Assistance Close supervision Static Standing-Comment/# of Minutes Supervision required for safety due to mild imbalance. Bed Mobility Bed Mobility Yes Bed Mobility 1 Bed Mobility From 1 Supine Bed Mobility Type 1 To and from Bed Mobility to 1 Edge of bed Level of Assistance 1 Standby Assist Bed Mobility Comments 1 Head of the bed elevated. Stand by assist required for safety due to mild imbalance. Transfers Transfer Yes Transfer 1 Transfer From 1 Sit Transfer Type 1 To and from Transfer to 1 Stand Technique 1 Sit to stand;Stand to sit Transfer Device 1 Wheeled walker Transfer Level of Assistance 1 Standby Assist Trials/Comments 1 Stand by assist required for safety due to mild imbalance. Ambulation Ambulation Yes Ambulation 1 Distance (ft) 1 120 Surface 1 Level tile Device 1 Wheeled walker Assistance 1 Standby Assist;Minimal verbal cues Gait: Requires assist with 1 Maintaining balance Gait: Requires verbal cues to 1 Pace activity Gait Deviations 1 Antalgic;Base of support - decreased;Alicia - decreased;Posture - flexed;Step length - decreased;Weight bearing through UE???s - increased Stairs Stairs Yes Stairs Number of Stairs 1 3 Rails 1 Bilateral Device 1 No device Assistance 1 Contact Guard Assist Stairs: Requires assist with 1 Balance Basic Mobility - 6 Click How much difficulty does the patient have: Turning over in bed 3 How much difficulty does the patient currently have: Sitting down and standing up from a chair witharms? 3 How much difficulty does the patient have: Moving from lying on back to sitting on the side of the bed? 3 How much difficulty does the patient have: Moving to and from a bed to a chair including wheelchair? 3 How much help does the patient currently need: Walk in hospital room? 3 How much help from another person does the patient currently need: Climbing 3-5 steps with a railing? 3 Total 6 Click Score (range 6-24) 18 Score Interpretation 41.05 Safe Environment End of Therapy Session Safe Environment End of Therapy Session Patient left supine in bed;RN notified;Call light within reach;Overbed table within reach;Bed in lowest position with wheels locked;Bed rails up per protocol (ABHAY Hamlin entering room at therapist was leaving) Assessment Prognosis Good Problem List Reduced mobility;Debility;Gait deviations;Decreased strength;Decreased endurance;Impaired balance;Orthopedic restrictions;Pain Problem List Comments Physical Therapy Diagnosis: Patient admitted for progressive weight loss and deconditioning post exploratory laparotomy, total hysterectomy, bilateral salpingectomy and oophorectomy, and total colectomy (12/24/23) presents with the above listed impairments which prevent full par ticipation in home and community mobility. Barriers to Discharge None Barriers to Discharge Comments Patient demonstrates mobility at the supervision level. Patient reports having this level of assistance available at home at discharge. Thus, patient is appropriate fordischarge home. Plan Plan Alter current plan;If this is the last note, consider this the discharge summary Plan Comments Patient mobility has progressed past the point of requiring inpatient rehabilitation at discharge and is now appropriate for discharge home. Discharge recommendation updated. Recommendation/Plan PT Recommendation/Plan Home with 24 hour supervision PT Frequency during current admission Discharge from this Service Treatment/Interventions during current admission Balance Training;Bed mobility;Compensatory technique education;Endurance training;Equipment eval/education;Functional activity;Functional transfer training;Gait training;Neuromuscular re-education;Parent/caregiver training and education;Stair training;Strengthening;Therapeutic activity;Therapeutic exercise;Transfer training PT Equipment Recommended Wheeled walker (Patient reports having a wheeled walker at home she can use.) Progress during current admission Discontinue PT PT - OK to Discharge Yes (From a physical therapy perspective) PT Time Calculation PT Start Time 1453 PT Stop Time 1516 PT Time Calculation (min) 23 min IO ARTIST * Gin Villafuerte, INDUSTRIAL SECURITY ANALYST - 12/29/2023 9:53 AM CST [facility] Daily Progress Note Colon and Rectal Surgery PATIENT NAME: Darius Russo : 1960 ADMIT DATE: 11/25/2023 6:29 PM LOS: 34 Subjective CHIEF COMPLAINT: S/p left colectomy, end colostomy, LIBRA, BSO INTERVAL HISTORY: VSS. Pain adequately controlled on current regimen. She is tolerating a consistent carb diet without n/v. Colostomy in place, 400cc output in last 24 hrs. Hgb stable at 9.3 (8.5). Saba draining clear yellow urine, will plan to remove today. Objective MEDICATIONS: Scheduled: acetaminophen, 1,000 mg, oral, Q6H DARIN cefTRIAXone, 2,000 mg, intravenous, Q24H DARIN enoxaparin, 40 mg, subcutaneous, Daily-2100 gabapentin, 300 mg, oral, Q12H DARIN ibuprofen, 600 mg, oral, Q8H DARIN insulin lispro, 0-4 Units, subcutaneous, Nightly insulin lispro, 0-5 Units, subcutaneous, TID with meals linezolid, 600 mg, oral, BID pantoprazole DR, 40 mg, oral, Daily sodium chloride 0.9%, 0.5-20 mL, intra-catheter, Q8H DARIN (ALT) Infusions: PRN: sodium chloride 0.9% dextrose OR dextrose glucagon naloxone ondansetron oxyCODONE prochlorperazine sodium chloride 0.9% VITALS: 24hr Min/Max: Temp Min: 36.3 ??C (97.3 ??F) Max: 36.9 ??C (98.4 ??F) Pulse Min: 85 Max: 95 BP Min: 120/65 Max: 162/75 Resp Min: 16 Max: 20 SpO2 Min: 98 % Max: 99 % Most Recent: Vitals: 12/28/23 2129 12/29/23 0047 12/29/23 0524 12/29/23 0756 BP: 128/63 120/65 162/75 148/75 BP Location: Right arm Right arm Right arm Right arm Patient Position: Sitting Pulse: 92 85 88 95 Resp: 19 16 16 16 Temp: 36.3 ??C (97.3 ??F) 36.6 ??C (97.9 ??F) 36.6 ??C (97.9 ??F) 36.4 ??C (97.5 ??F) TempSrc: Oral Oral Oral Oral SpO2: 98% 98% 99% 99% Weight: Height: I/O last 2 completed shifts: In: 1800 [P.O.:1800] Out: 2575 [Urine:2175; Stool:400] Intake/Output Summary (Last 24 hours) at 12/29/2023 0953 Last data filed at 12/29/2023 0855 Gross per 24 hour Intake 1300 ml Output 2375 ml Net -1075 ml PHYSICAL EXAM: Constitutional: NAD, well developed, well nourished. A&O x 4. HEENT: PERRL, EOMI, anicteric. Lungs: Unlabored breathing. Trachea midline. GI: Abdomen soft, appropriately tender to palpation, non-distended. Ostomy: Bonaparte, stool present. Wound: Incision clean, dry, intact with jesu. No erythema/swelling/drainage noted. Drains: Saba intact with clear urine present. Skin: No new rashes, lesions or bruises Extremities: Normal without edema or cyanosis Neurologic: Non-focal, CNII-XII grossly intact Psychiatric: Normal affect and mood. LAB/ RADIOLOGY/ DIAGNOSTIC REVIEW: Recent Labs Lab Units 12/28/238 12/27/23205512/27/23 0339 WBC K/cumm 10.9* 10.9* 11.2* HEMOGLOBIN g/dL 9.3* 8.5* 8.5* HEMATOCRIT % 29.5* 27.6* 26.7* PLATELETS K/cumm 384 364 288 Recent Labs Lab Units 12/29/2375612/28/23221712/28/23211212/27/23205612/27/23205512/27/2375312/26/23 2232 SODIUM mmol/L -- 138 -- -- 137 -- 137 POTASSIUM PLASMA mmol/L -- 4.4 -- -- 4.0 -- 3.9 CHLORIDE mmol/L -- 104 -- -- 104 -- 103 CO2 mmol/L -- 26 -- -- 27 -- 26 BUN SERUM mg/dL -- 20 -- -- 22 -- 21 CREATININE mg/dL -- 0.79 -- -- 0.90 -- 1.05 GLUCOSE mg/dL -- 135 -- -- 98 -- 121 POC GLUCOSE MONITOR mg/dL 122 -- 160 < > -- < > -- CALCIUM mg/dL -- 8.1* -- -- 8.0* -- 7.7* < > = values in this interval not displayed. I have reviewed the laboratory results. ASSESSMENT/ PLAN: Darius Russo is a 63 y.o. female with Physical deconditioning, status post open left colon resection and colostomy, LIBRA/BSO. Now 5 Days Post-Op Acute pain control Diet: Adult Diet Restricted; Consistent Carbohydrate DVT PPx: Lovenox, SCDs Activity: with assist, PT, OT Dispo: floor - F/U ID for antibiotic recommendations - Remove saba - Ostomy teaching Code status: Full Code PT/OT Dispo Rec: PT Recommendation/Plan: Inpatient Rehab Facility / OT Recommendation: (S) Inpatient Rehab Facility Gin Villafuerte APRN Colon and Rectal Surgery Cosigned by Yo Perez MD at 12/29/2023 4:29 PM STUDIO ARTIST IO ARTIST IO ARTIST * Dylon Batres MD - 12/28/2023 7:15 AM CST [facility] Daily Progress Note Colon and Rectal Surgery PATIENT NAME: Darius Russo : 1960 ADMIT DATE: 11/25/2023 6:29 PM LOS: 33 Subjective CHIEF COMPLAINT: Physical deconditioning INTERVAL HISTORY: VSS AF. Pain adequately controlled on current regimen. Ostomy without output in [address] A/P obtained with no evidence of bleeding. Hgb stable 8.5 (8.5). Tolerating diabetic diet without nausea/vomiting. Objective MEDICATIONS: Scheduled: acetaminophen, 1,000 mg, oral, Q6H DARIN cefTRIAXone, 2,000 mg, intravenous, Q24H DARIN [Held by Provider] enoxaparin, 40 mg, subcutaneous, Daily-2100 gabapentin, 300 mg, oral, Q12H DARIN ibuprofen, 600 mg, oral, Q8H DARIN insulin lispro, 0-4 Units, subcutaneous, Nightly insulin lispro, 0-5 Units, subcutaneous, TID with meals linezolid, 600 mg, oral, BID pantoprazole DR, 40 mg, oral, Daily sodium chloride 0.9%, 0.5-20 mL, intra-catheter, Q8H DARIN (ALT) Infusions: PRN: sodium chloride 0.9% dextrose OR dextrose glucagon naloxone ondansetron oxyCODONE prochlorperazine sodium chloride 0.9% VITALS: 24hr Min/Max: Temp Min: 36.2 ??C (97.2 ??F) Max: 36.7 ??C (98.1 ??F) Pulse Min: 87 Max: 93 BP Min: 125/64 Max: 143/67 Resp Min: 16 Max: 20 SpO2 Min: 97 % Max: 100 % Most Recent: Vitals: 12/27/23 2100 12/28/23 0005 12/28/2343412/28/23436 BP: 127/65 125/64 137/68 BP Location: Left arm Left arm Patient Position: HOB 30 degrees;Lying Lying;HOB 30 degrees Pulse: 87 87 91 Resp: 18 16 17 Temp: 36.3 ??C (97.3 ??F) 36.7 ??C (98 ??F) 36.7 ??C (98.1 ??F) TempSrc: Oral Oral Oral SpO2: 99% 98% 97% Weight: Height: I/O last 2 completed shifts: In: 840 [P.O.:840] Out: 1275 [Urine:1275] Intake/Output Summary (Last 24 hours) at 12/28/2023 0715 Last data filed at 12/28/2023 0437 Gross per 24 hour Intake 840 ml Output 1275 ml Net -435 ml PHYSICAL EXAM: Constitutional: NAD, well developed, well nourished. A&O x 4. HEENT: PERRL, EOMI, anicteric. Lungs: Unlabored breathing. Trachea midline. Cardiovascular: Regular rate. No JVD. GI: Abdomen soft, appropriately tender to palpation, non-distended. Ostomy: Bonaparte, stool present. Wound: Incision clean, dry, intact with jesu. No erythema/swelling/drainage noted. Drains: Saba intact with clear urine present. Skin: No new rashes, lesions or bruises Extremities: Normal without edema or cyanosis Neurologic: Non-focal, CNII-XII grossly intact Psychiatric: Normal affect and mood. LAB/ RADIOLOGY/ DIAGNOSTIC REVIEW: Recent Labs Lab Units 12/27/23205512/27/23 0339 12/26/232231 WBC K/cumm 10.9* 11.2* 10.1* HEMOGLOBIN g/dL 8.5* 8.5* 6.2* HEMATOCRIT % 27.6* 26.7* 20.5* PLATELETS K/cumm 364 288 323 Recent Labs Lab Units 12/27/23205612/27/23205512/27/23 1829 12/27/23 0754 12/26/23 2232 12/26/23 0818 12/25/23 2046 SODIUM mmol/L -- 137 -- -- 137 -- 133* POTASSIUM PLASMA mmol/L -- 4.0 -- -- 3.9 -- 3.9 CHLORIDE mmol/L -- 104 -- -- 103 -- 99 CO2 mmol/L -- 27 -- -- 26 -- 24 BUN SERUM mg/dL -- 22 -- -- 21 -- 20 CREATININE mg/dL -- 0.90 -- -- 1.05 -- 1.07 GLUCOSE mg/dL -- 98 -- -- 121 -- 171 POC GLUCOSE MONITOR mg/dL 113 -- 196 < > -- < > -- CALCIUM mg/dL -- 8.0* -- -- 7.7* -- 7.8* < > = values in this interval not displayed. I have reviewed the laboratory results. ASSESSMENT/ PLAN: Darius Russo is a 63 y.o. female with Physical deconditioning, status post open left colon resection and colostomy, LIBRA/BSO. Now 4 Days Post-Op Pain: Scheduled tylenol, gabapentin, PRN oxy Diet: Adult Diet Restricted; Consistent Carbohydrate DVT PPx: SCDs Activity: with assist, PT, OT Dispo: floor Lovenox needed at discharge: yes/no Home health needed at discharge: yes/no - restart sbq lvx, iso no evidence of bleeding - c/w ceftriaxone, linezolid. Per ID, can d/c all abx on 5 days post-op (12/28) now that Zosyn switched to Ceftriaxone. Code status: Full Code PT/OT Dispo Rec: PT Recommendation/Plan: Inpatient Rehab Facility / OT Recommendation: (S) Inpatient Rehab Facility Cosigned by Jose E Hernandez MD at 12/28/2023 3:11 PM STUDIO ARTIST IO ARTIST IO ARTIST Associated attestation - Jose E Hernandez MD - 12/28/2023 3:11 PM STUDIO ARTIST I have seen and examined the patient on 12/28/23. I agree with the findings and plan of care as documented in the resident's note. CT report reviewed, no evidence of active bleeding. H&H are stable. She overall feels better. Supine in bed, no distress. Abdomen soft, mildly distended, incision clean, ostomy productive Continue serial exams and labs, assess oral intake, assess ambulatory capabilities, consider for placement. Questions answered. Appreciate ID recommendations due to drug resistant infections. Jose E Hernandez MD software development manager [facility] in [place] Office: * Debbie Baltazar MD - 12/27/2023 8:12 AM CST [facility] Daily Progress Note Colon and Rectal Surgery PATIENT NAME: Darius Russo : 1960 ADMIT DATE: 11/25/2023 6:29 PM LOS: 32 Subjective CHIEF COMPLAINT: Physical deconditioning INTERVAL HISTORY: VSS AF. Hgb overnight 6.2. Received 1 unit pRBCs, post- transfusion CBC with Hgb 8.5. Having stoma output. Pain adequately controlled. Objective MEDICATIONS: Scheduled: acetaminophen, 1,000 mg, oral, Q6H DARIN [Held by Provider] enoxaparin, 40 mg, subcutaneous, Daily-2100 gabapentin, 300 mg, oral, Q12H DARIN ketorolac, 15 mg, intravenous, Q8H DARIN Followed by ibuprofen, 600 mg, oral, Q8H DARIN insulin lispro, 0-4 Units, subcutaneous, Nightly insulin lispro, 0-5 Units, subcutaneous, TID with meals linezolid, 600 mg, oral, BID pantoprazole DR, 40 mg, oral, Daily piperacillin-tazobactam, 3.375 g, intravenous, Q6H DARIN sodium chloride 0.9%, 0.5-20 mL, intra-catheter, Q8H DARIN (ALT) Infusions: PRN: sodium chloride 0.9% dextrose OR dextrose glucagon naloxone ondansetron oxyCODONE prochlorperazine sodium chloride 0.9% VITALS: 24hr Min/Max: Temp Min: 36.2 ??C (97.2 ??F) Max: 37 ??C (98.6 ??F) Pulse Min: 88 Max: 96 BP Min: 102/56 Max: 132/62 Resp Min: 12 Max: 20 SpO2 Min: 92 % Max: 99 % Most Recent: Vitals: 12/27/23 0233 12/27/23 0237 12/27/23 0337 12/27/23 0757 BP: 116/57 117/55 113/60 132/62 BP Location: Right arm Left arm Patient Position: Lying;HOB 30 degrees Sitting Pulse: 93 94 95 93 Resp: 18 12 Temp: 37 ??C (98.6 ??F) 36.6 ??C (97.9 ??F) 36.9 ??C (98.4 ??F) 36.2 ??C (97.2 ??F) TempSrc: Oral Axillary SpO2: 97% 96% 97% 99% Weight: Height: I/O last 2 completed shifts: In: 837 [P.O.:550; Blood:287] Out: 1850 [Urine:1600; Stool:250] Intake/Output Summary (Last 24 hours) at 12/27/2023 0812 Last data filed at 12/27/2023 0755 Gross per 24 hour Intake 1077 ml Output 2100 ml Net -1023 ml PHYSICAL EXAM: Constitutional: NAD, well developed, well nourished. A&O x 4. HEENT: PERRL, EOMI, anicteric. Lungs: Unlabored breathing. Trachea midline. Cardiovascular: Regular rate. No JVD. GI: Abdomen soft, moderately tender to palpation, non-distended. Ostomy: Bonaparte, stool present. Wound: Incision clean, dry, intact with jesu. No erythema/swelling/drainage noted. Drains: Saba intact with clear urine present. Skin: No new rashes, lesions or bruises Extremities: Normal without edema or cyanosis Neurologic: Non-focal, CNII-XII grossly intact Psychiatric: Normal affect and mood. LAB/ RADIOLOGY/ DIAGNOSTIC REVIEW: Recent Labs Lab Units 12/27/23 0339 12/26/23223112/26/23 0245 WBC K/cumm 11.2* 10.1* 13.4* HEMOGLOBIN g/dL 8.5* 6.2* 7.4* HEMATOCRIT % 26.7* 20.5* 24.2* PLATELETS K/cumm 288 323 285 Recent Labs Lab Units 12/27/23 0754 12/26/23223112/26/23195812/26/23 0818 12/25/23 2046 12/25/23 0845 12/24/23 2158 SODIUM mmol/L -- 137 -- -- 133* -- 138 POTASSIUM PLASMA mmol/L -- 3.9 -- -- 3.9 -- 4.1 CHLORIDE mmol/L -- 103 -- -- 99 -- 101 CO2 mmol/L -- 26 -- -- 24 -- 26 BUN SERUM mg/dL -- 21 -- -- 20 -- 16 CREATININE mg/dL -- 1.05 -- -- 1.07 -- 0.86 GLUCOSE mg/dL -- 121 -- -- 171 -- 180 POC GLUCOSE MONITOR mg/dL 115 -- 151 < > -- < > -- CALCIUM mg/dL -- 7.7* -- -- 7.8* -- 8.7 < > = values in this interval not displayed. I have reviewed the laboratory results. ASSESSMENT/ PLAN: Darius Russo is a 63 y.o. female with Physical deconditioning, status post open left colon resection and colostomy, LIBRA/BSO. Now 3 Days Post-Op Pain: Scheduled tylenol, NSAID, gabapentin, PRN oxy Diet: Adult Diet Restricted; Consistent Carbohydrate DVT PPx: lovenox, SCDs Activity: with assist, PT, OT Dispo: floor Lovenox needed at discharge: yes/no Home health needed at discharge: yes/no - CT A/P this AM given required 2 units pRBCs in 48 hours Code status: Full Code PT/OT Dispo Rec: PT Recommendation/Plan: Inpatient Rehab Facility / OT Recommendation: (S) Inpatient Rehab Facility Cosigned by Jose E Hernandez MD at 12/28/2023 3:09 PM STUDIO ARTIST IO ARTIST IO ARTIST Associated attestation - Jose E Hernandez MD - 12/28/2023 3:09 PM STUDIO ARTIST I have seen and examined the patient on 12/26/23. I agree with the findings and plan of care as documented in the resident's note. Increased pain today, also required more transfusions for acute blood loss anemia, responded appropriately. She does report having walked more yesterday. Abdomen is softly distended, incision clean, ostomy viable and productive. Continue serial H&H due to bleeding, we will check CT abdomen/pelvis to ensure no active bleeding especially given her abdominal distention and increased discomfort. Continue to work on pain control. Questions answered. Jose E Hernandez MD software development manager [facility] in [place] Office: * Debbie Baltazar MD - 12/26/2023 10:58 AM CST [facility] Daily Progress Note Colon and Rectal Surgery PATIENT NAME: Darius Russo : 1960 ADMIT DATE: 11/25/2023 6:29 PM LOS: 31 Subjective CHIEF COMPLAINT: Physical deconditioning INTERVAL HISTORY: Hgb overnight 6.4. Received 1 unit pRBCs, post-transfusion CBC with Hgb 7.4. Patient received 1L bolus for soft BP. Patient remained asymptomatic. BP this AM improved, otherwise VSSAF. Having stoma output. Pain well-controlled Objective MEDICATIONS: Scheduled: acetaminophen, 1,000 mg, oral, Q6H DARIN [Held by Provider] enoxaparin, 40 mg, subcutaneous, Daily-2100 gabapentin, 300 mg, oral, Q12H DARIN ketorolac, 15 mg, intravenous, Q8H DARIN Followed by [START ON 12/27/2023] ibuprofen, 600 mg, oral, Q8H DARIN insulin lispro, 0-4 Units, subcutaneous, Nightly insulin lispro, 0-5 Units, subcutaneous, TID with meals linezolid, 600 mg, oral, BID pantoprazole DR, 40 mg, oral, Daily piperacillin-tazobactam, 3.375 g, intravenous, Q6H DARIN sodium chloride 0.9%, 0.5-20 mL, intra-catheter, Q8H DARIN (ALT) Infusions: PRN: sodium chloride 0.9% dextrose OR dextrose glucagon naloxone ondansetron oxyCODONE prochlorperazine sodium chloride 0.9% VITALS: 24hr Min/Max: Temp Min: 36.2 ??C (97.1 ??F) Max: 36.8 ??C (98.2 ??F) Pulse Min: 69 Max: 99 BP Min: 79/36 Max: 120/60 Resp Min: 16 Max: 19 SpO2 Min: 95 % Max: 100 % Most Recent: Vitals: 12/26/23 0100 12/26/23 0203 12/26/23 0312 12/26/23 0816 BP: (!) 87/40 104/47 103/49 120/60 BP Location: Right arm Right arm Right arm Patient Position: Lying;HOB 30 degrees Lying;HOB 30 degrees Lying;HOB 30 degrees Pulse: 88 83 69 94 Resp: Temp: 36.7 ??C (98.1 ??F) 36.7 ??C (98 ??F) 36.7 ??C (98.1 ??F) 36.4 ??C (97.5 ??F) TempSrc: Oral Oral Oral SpO2: 100% 98% 97% 99% Weight: Height: I/O last 2 completed shifts: In: 1490 [P.O.:1190; Blood:300] Out: 1525 [Urine:950; Stool:575] Intake/Output Summary (Last 24 hours) at 12/26/2023 1058 Last data filed at 12/26/2023 1015 Gross per 24 hour Intake 1890 ml Output 2000 ml Net -110 ml PHYSICAL EXAM: Constitutional: NAD, well developed, well nourished. A&O x 4. HEENT: PERRL, EOMI, anicteric. Lungs: Unlabored breathing. Trachea midline. Cardiovascular: Regular rate. No JVD. GI: Abdomen soft, appropriately tender to palpation, non-distended. Ostomy: Bonaparte, stool present. Wound: Incision clean, dry, intact with jesu. No erythema/swelling/drainage noted. Drains: Saba intact with clear urine present. Skin: No new rashes, lesions or bruises Extremities: Normal without edema or cyanosis Neurologic: Non-focal, CNII-XII grossly intact Psychiatric: Normal affect and mood. LAB/ RADIOLOGY/ DIAGNOSTIC REVIEW: Recent Labs Lab Units 12/26/2324412/25/23204512/24/232157 WBC K/cumm 13.4* 11.1* 17.3* HEMOGLOBIN g/dL 7.4* 6.4* 8.3* HEMATOCRIT % 24.2* 21.2* 27.3* PLATELETS K/cumm 285 314 336 Recent Labs Lab Units 12/26/23 0818 12/25/23204512/25/23203812/25/23 0845 12/24/23215712/24/23 1109 12/22/236 SODIUM mmol/L -- 133* -- -- 138 -- 133* POTASSIUM PLASMA mmol/L -- 3.9 -- -- 4.1 -- 4.7 CHLORIDE mmol/L -- 99 -- -- 101 -- 98 CO2 mmol/L -- 24 -- -- 26 -- 24 BUN SERUM mg/dL -- 20 -- -- 16 -- 22 CREATININE mg/dL -- 1.07 -- -- 0.86 -- 0.78 GLUCOSE mg/dL -- 171 -- -- 180 -- 174 POC GLUCOSE MONITOR mg/dL 125 -- 193 < > -- < > -- CALCIUM mg/dL -- 7.8* -- -- 8.7 -- 8.7 < > = values in this interval not displayed. I have reviewed the laboratory results. ASSESSMENT/ PLAN: Darius Russo is a 63 y.o. female with Physical deconditioning, status post open left colon resection and colostomy, LIBRA/BSO. Now 2 Days Post-Op Pain: Scheduled tylenol, NSAID, gabapentin, dPCA Diet: Adult Diet Restricted; Consistent Carbohydrate DVT PPx: lovenox, SCDs Activity: with assist, PT, OT Dispo: floor Lovenox needed at discharge: yes/no Home health needed at discharge: yes/no - d/c OVEN HEATER - hold Lovenox for now, restart this evening if Hgb stable Code status: Full Code PT/OT Dispo Rec: PT Recommendation/Plan: Inpatient Rehab Facility / OT Recommendation: (S) Inpatient Rehab Facility Cosigned by Jose E Hernandez MD at 12/28/2023 3:08 PM STUDIO ARTIST IO ARTIST IO ARTIST Associated attestation - Jose E Hernandez MD - 12/28/2023 3:08 PM STUDIO ARTIST I have seen and examined the patient on 12/26/23. I agree with the findings and plan of care as documented in the resident's note. Sitting up in chair, no distress. She expressed concern about rehab placement, but has ambulated some today. Abdomen is soft, wound covered, ostomy productive Transfused for acute blood loss anemia, continue serial H and H, diet as tolerated, increase activity with PT/OT. Questions answered. Jose E Hernandez MD software development manager [facility] in [place] Office: * Griselda Chin, PT - 12/25/2023 2:15 PM CST Physical Therapy Physical Therapy Evaluation Note NOTE: This is a summary note of the brown components of the evaluation session. For full details, review chart for all flowsheets documented on by this physical therapy clinician on this date. Vital signs are documented in the vital signs flowsheet. For questions, please review the treatment team and contact the PT or FITNESS AND WELLNESS COORDINATOR currently assigned to this patient. If a physical therapy clinician is not assigned to this patient, please call [phone]. 12/25/23 1415 General Session Type Re-Evaluation PT Received On 12/25/23 Safe Environment Arm band checked;Patient found in supine;Session completed bedside;Gait belt not utilized, see comment (due to abdominal incision/ostomy) Subjective Agreeable to Therapy Additional Pertinent History 12/23 cystoscopy B ureteral stent, hyst abd SO, open L colectomy with end colostomy Family/Caregiver Present Yes Precautions Precautions Abdominal;Fall risk Precaution Comments therapist wore gloves the entire session Home Living Additional Comments see initial eval Prior Function Prior Function Comments see initial eval Activity Tolerance Activity Tolerance Comments LAWSON: somewhat hard Pain Assessment Pain Assessment No/denies pain Cognition Arousal/Alertness Alert;Appropriate responses to stimuli Orientation Oriented X4 (person, place, time, situation) Following Commands Follows all commands and directions without difficulty Sensation Light Touch WFL Sensation Comments B feet Balance Tests Balance Tests No (gait speed unable to be performed as patient unable to walk disatance needed and required increased assist after legs started buckling) Balance Balance Yes Static Sitting Balance Static Sitting-Balance Support No upper extremity supported Static Sitting-Sitting Surface Bed Static Sitting-Level of Assistance Close supervision Static Standing Balance Static Standing-Balance Support Bilateral upper extremity supported Static Standing-Standing Surface Floor Static Standing-Level of Assistance Contact guard Bed Mobility Bed Mobility Yes Bed Mobility 1 Bed Mobility From 1 Supine Bed Mobility Type 1 To and from Bed Mobility to 1 Edge of bed Level of Assistance 1 Minimum Assist Transfers Transfer Yes Transfer 1 Transfer From 1 Sit Transfer Type 1 To Transfer to 1 Stand Transfer Device 1 Wheeled walker Transfer Level of Assistance 1 Minimum Assist Transfers 2 Transfer From 2 Stand Transfer Type 2 To Transfer to 2 Sit Transfer Device 2 Wheeled walker Transfer Level of Assistance 2 Minimum Assist;Moderate Assist Trials/Comments 2 needed increased assist after legs got weak during ambulation Ambulation Functional Ambulation Category 1 Ambulation Yes Ambulation 1 Distance (ft) 1 4 forward and 4 backward Surface 1 Level tile Device 1 Wheeled walker Assistance 1 Minimum Assist (legs became weak and started to buckle and then needed mod x2 to walk backwards back to bed) Ambulation Comments 1 legs fatigued very quickly and it became hard for patient to walk and knees started buckling, patient unable to navigate a turn due to leg weakness RUE Assessment RUE Assessment WFL LUE Assessment LUE Assessment WFL RLE Assessment RLE Assessment WFL LLE Assessment LLE Assessment WFL Basic Mobility - 6 Click How much difficulty does the patient have: Turning over in bed 3 How much difficulty does the patient currently have: Sitting down and standing up from a chair witharms? 3 How much difficulty does the patient have: Moving from lying on back to sitting on the side of the bed? 3 How much difficulty does the patient have: Moving to and from a bed to a chair including wheelchair? 3 How much help does the patient currently need: Walk in hospital room? 2 How much help from another person does the patient currently need: Climbing 3-5 steps with a railing? 1 Total 6 Click Score (range 6-24) 15 Score Interpretation 36.97 Safe Environment End of Therapy Session Safe Environment End of Therapy Session Patient left supine in bed;Call light within reach;Overbed table within reach Assessment Problem List Reduced Moblity;Gait deviations;Decreased strength;Decreased endurance;Impaired balance Plan Plan Plan of care initiated;If this is the last note, consider this the discharge summary Recommendation/Plan PT Recommendation/Plan Inpatient Rehab Facility Patient at high risk for Injury due to reduced functional status;Injury due to balance deficits;Injury at home as patient has not returned to prior level of function Recommend Inpatient Rehab/Acute Rehab due to Ability to actively participate in intensive therapy 3hours/day, 5 days/week or 900 minutes per week;Highly motivated to participate in therapy;Impaired ability to complete functional mobility;Likely to return to the community at discharge with support system in place;Requires multiple therapy disciplines to address functional deficits;Requires greater than 25% physical assistance with most mobility tasks PT Recommendation/Plan Comments rehab pending progress PT Frequency during current admission 3-5x/wk Treatment/Interventions during current admission Balance Training;Bed mobility;Endurance training;Functional activity;Functional transfer training;Gait training;Therapeutic activity;Therapeutic exercise PT - Next Appointment 12/26/23 PT Evaluation Complete Yes PT Time Calculation PT Start Time 1415 PT Stop Time 1511 PT Time Calculation (min) 56 min Multi-Disciplinary Problems (from Physical Therapy) Active Problems Problem: Mobility Start Date: 12/25/23 Goal Start Date Expected End Date End Date LTG - Patient will ambulate household distance independently. 12/25/23 01/22/24 -- Goal Start Date Expected End Date End Date STG - Patient will ambulate 150 WW SBA. 12/25/23 01/01/24 -- Problem: Transfers Start Date: 12/25/23 Goal Start Date Expected End Date End Date STG - Patient to transfer to and from sit to supine SBA. 12/25/23 01/01/24 -- Goal Start Date Expected End Date End Date STG - Patient will transfer sit to and from stand WW SBA. 12/25/23 01/01/24 -- IO ARTIST * Maria E Joyner, OT - 12/25/2023 11:04 AM CST Occupational Therapy Occupational Therapy ReEvaluation Note NOTE: This is a summary note of the brown components of the evaluation session. For full details, review chart for all flowsheets documented on by this occupational therapy clinician on this date. Vital signs are documented in vital signs flowsheet. For questions, please review the treatment team and contact the occupational therapist currently assigned to this patient. If an occupational therapist is not assigned to this patient, please call [phone]. 12/25/23 1104 General Chart Reviewed Yes Session Type Re-Evaluation OT Received On 12/25/23 Safe Environment Arm band checked;Patient found in supine;Gait belt not utilized, see comment (d/t incisions) Subjective Agreeable to Therapy Family/Caregiver Present Yes ( and daughter) Occupational Therapy-Patient Goal pt did not state this date but was agreeable to OT POC Precautions Precautions Fall risk;Abdominal Precaution Handout Issued No Precaution Comments verbally reviewed precautions, pt verbalized understanding Home Living Additional Comments see initial eval Prior Function Prior Function Comments see initial eval ADL ADLS (WDL) X Grooming Grooming: Where assessed Edge of bed Grooming: Level of assistance Moderate Assist (total balance, set up task) Grooming: Assistance with Balance;Safety LE Dressing LE Dressing: Where assessed Edge of bed LE Dressing: Level of assistance Minimum Assist (min balance, min task) LE Dressing: Assistance with Pull up over hips;Fasteners;Balance;Safety Toilet Transfers Toilet Transfers Comments deferred d/t safety concerns Pain Assessment Pain Assessment 0-10 Pain Score 8 Pain Location Abdomen Pain Interventions RN Notified Cognition Arousal/Alertness Alert;Appropriate responses to stimuli Attention Span Appears intact Memory Appears intact Current communication Appears Intact Orientation Oriented X4 (person, place, time, situation) Following Commands Follows all commands and directions without difficulty Safety Judgment Good awareness of safety precautions Awareness of Errors Good awareness of errors made Insight Fully aware of deficits Problem Solving Able to problem solve independently Compliance/Behavior Easy to engage Perseveration Not present Cognitive Tests Cognitive Tests Yes Short Blessed Test What year is it now? 0 What month is it now? 0 Repeat this name and address after me John Cramer [address] [place] [address] Without looking at the clock, tell me what time it is 0 Count aloud backwards from 20-1 0 Say the months of the year backwards in reverse order 0 Repeat the name and address I asked you to remember 0 Short Blessed Total Score 0 Short Blessed Comments WFL Hand Preference Hand Preference Right Hand Function Gross Grasp Functional Balance Tests Balance Tests Yes Tinetti Sitting Balance 1 Arises 1 Attempts to Arise 2 Immediate Standing Balance (First 5 Seconds) 1 Standing Balance 1 Nudged 1 Eyes Closed 0 Turned 360 Degrees: Steadiness 0 Turned 360 Degrees: Continuity of Steps 0 Sitting Down 1 Balance Score 8 Balance Balance Yes Static Sitting Balance Static Sitting-Balance Support Feet supported;Bilateral upper extremity supported Static Sitting-Sitting Surface Bed Static Sitting-Level of Assistance Close supervision Static Sitting-Comment/# of Minutes for safety Dynamic Sitting Balance Dynamic Sitting-Balance Support Unilateral upper extremity supported;Feet supported Dynamic Sitting-Balance Forward lean;Reaching for objects;Reaching across midline Dynamic Sitting-Sitting Surface Bed Dynamic Sitting-Level of Assistance Close supervision Dynamic Sitting-Comments for safety Static Standing Balance Static Standing-Balance Support Unilateral upper extremity supported (MAT TESTER) Static Standing-Standing Surface Floor Static Standing-Level of Assistance Minimum assistance Static Standing-Comment/# of Minutes for balance and safety Dynamic Standing Balance Dynamic Standing-Balance Support Bilateral upper extremity supported (MAT TESTER) Dynamic Standing-Balance (weight shifting) Dynamic Standing-Standing Surface Floor Dynamic Standing-Level of Assistance Minimum assistance Dynamic Standing-Comments for balance and safety Bed Mobility Bed Mobility Yes Bed Mobility 1 Bed Mobility From 1 Supine Bed Mobility Type 1 To and from Bed Mobility to 1 Edge of bed Level of Assistance 1 Minimum Assist Bed Mobility Comments 1 to elevate trunk, log roll performed Transfers Transfer Yes Transfer 1 Transfer From 1 Sit Transfer Type 1 To and from Transfer to 1 Stand Technique 1 Sit to stand;Stand to sit Transfer Device 1 No device Transfer Level of Assistance 1 Contact Guard Assist;Minimum Assist Trials/Comments 1 for balance and safety, 3 reps. Rep 1 CGA, rep 2-3 min A for force production andcontrolled descent, balance and safety RUE Assessment RUE Assessment WFL LUE Assessment LUE Assessment WFL Other Comments Comments Pt noted with low BP upon room entry, RN OK with limited OOB mobility as long as pt remained asymptomatic. Pt stood EOB 3x with CGA-min A, reporting no dizziness or lightheadedness. Pt took 2-3 steps forward with MAT TESTER and min A for balance and safety 2x. Pt noted to be very shaky, pt attributed this to being weak from not getting OOB for several days. Pt also noted to have increased pain when moving but motivated to continue therapy. Daily Activity - 6 Clicks Putting on and taking off regular lower body clothing 3 Bathing 3 Toileting 3 Putting on and taking off upper body clothing 3 Personal Grooming 2 Eating Meals 4 Total Score (range 6-24) 18 Score Interpretation 38.66 Safe Environment End of Therapy Session Safe Environment End of Therapy Session Patient left supine in bed;Call light within reach;Overbed table within reach Assessment Problem List Decreased endurance;Decreased balance;Decreased functional mobility;Decreased ADL independence;Decreased IADL independence;Pain Barriers to Discharge Current Mobility Status;Current ADL Status Barrier Comments fall risk Plan Plan Plan of care initiated;If this is the last note, consider this the discharge summary Recommendation/Plan OT Recommendation (S) Inpatient Rehab Facility Patient at high risk for Falls;Readmission;Injury due to decreased ability to care for self;Injury due to reduced functional status;Injury due to balance deficits;Injury at home as patient has not returned to prior level of function Recommend Inpatient Rehab/Acute Rehab due to Ability to actively participate in intensive therapy 3hours/day, 5 days/week or 900 minutes per week;Highly motivated to participate in therapy;Not at baseline due to impaired ability to complete ADLs;Impaired ability to complete functional mobility;Likely to return to the community at discharge with support system in place;Requires greater than 25% physical assistance with most mobility tasks;Requires greater than 25% physical assistance with most ADL tasks;Requires multiple therapy disciplines to address functional deficits OT Recommendation/Plan Comments IRF pending progress, anticipate progress to home with assist OT Frequency during current admission 3-5x/wk Treatment/Interventions during current admission ADL/IADL retraining;Balance Training;Bed mobility;Compensatory technique education;Endurance training;Functional activity;Functional mobility training;Functional transfer training;Strengthening;Therapeutic activity;Therapeutic exercise;Transfer traindamon hannon OT - Next Appointment 12/26/23 OT Evaluation Complete Yes OT Time Calculation OT Start Time 1104 OT Stop Time 1136 OT Time Calculation (min) 32 min Multi-Disciplinary Problems (from Occupational Therapy) Active Problems Problem: Dressings Lower Extremities Start Date: 12/25/23 Goal Start Date Expected End Date End Date STG - Patient to complete lower body dressing with SPV 12/25/23 01/01/24 -- Problem: Grooming Start Date: 12/25/23 Goal Start Date Expected End Date End Date STG - Patient will complete grooming in standing with SPV 12/25/23 01/01/24 -- Problem: Toileting Start Date: 12/25/23 Goal Start Date Expected End Date End Date STG - Patient will complete toileting tasks with SPV 12/25/23 01/01/24 -- Problem: Transfers Start Date: 12/25/23 Goal Start Date Expected End Date End Date STG - Patient will perform toilet transfer with SPV 12/25/23 01/01/24 -- Problem: OT Misc Start Date: 12/25/23 Goal Start Date Expected End Date End Date OT LTG - Pt will complete functional transfers and ADLs with mod I 12/25/23 01/22/24 -- IO ARTIST * Debbie Baltazar MD - 12/25/2023 10:27 AM CST [facility] Daily Progress Note Colon and Rectal Surgery PATIENT NAME: Darius Russo : 1960 ADMIT DATE: 11/25/2023 6:29 PM LOS: 30 Subjective CHIEF COMPLAINT: Physical deconditioning INTERVAL HISTORY: Received 1.5L LR bolus total for soft BPs 80/50s and low UOP overnight. Patient remained asymptomatic. BP this AM improved, otherwise VSS AF. Having BMs. Objective MEDICATIONS: Scheduled: acetaminophen, 1,000 mg, oral, Q6H DARIN enoxaparin, 40 mg, subcutaneous, Daily-2100 gabapentin, 300 mg, oral, Q12H DARIN ketorolac, 15 mg, intravenous, Q8H DARIN Followed by [START ON 12/27/2023] ibuprofen, 600 mg, oral, Q8H DARIN insulin lispro, 0-4 Units, subcutaneous, Nightly insulin lispro, 0-5 Units, subcutaneous, TID with meals pantoprazole DR, 40 mg, oral, Daily piperacillin-tazobactam, 3.375 g, intravenous, Q6H DARIN sodium chloride 0.9%, 0.5-20 mL, intra-catheter, Q8H DARIN (ALT) Infusions: HYDROmorphone, Lactated Ringer's, 75 mL/hr, Last Rate: 75 mL/hr (12/24/231949) PRN: sodium chloride 0.9% dextrose OR dextrose glucagon naloxone ondansetron prochlorperazine sodium chloride 0.9% VITALS: 24hr Min/Max: Temp Min: 36.1 ??C (97 ??F) Max: 37.2 ??C (99 ??F) Pulse Min: 89 Max: 101 BP Min: 80/44 Max: 120/62 Resp Min: 15 Max: 23 SpO2 Min: 94 % Max: 100 % Most Recent: Vitals: 12/25/23 0440 12/25/23 0725 12/25/23 0740 12/25/23 0840 BP: 93/46 97/46 99/47 102/51 BP Location: Patient Position: Pulse: 92 90 89 91 Resp: 16 17 16 Temp: TempSrc: SpO2: 99% 97% 99% 100% Weight: Height: I/O last 2 completed shifts: In: 2710 [P.O.:200; I.V.:1999; IV Piggyback:510] Out: 1335 [Urine:285; Stool:800; Blood:250] Intake/Output Summary (Last 24 hours) at 12/25/2023 1027 Last data filed at 12/25/2023 0352 Gross per 24 hour Intake 2710 ml Output 1335 ml Net 1375 ml PHYSICAL EXAM: Constitutional: NAD, well developed, well nourished. A&O x 4. HEENT: PERRL, EOMI, anicteric. Lungs: Unlabored breathing. Trachea midline. Cardiovascular: Regular rate. No JVD. GI: Abdomen soft, appropriately tender to palpation, non-distended. Ostomy: Bonaparte, stool present. Wound: Incision clean, dry, intact with jesu. No erythema/swelling/drainage noted. Drains: Saba intact with clear urine present. Skin: No new rashes, lesions or bruises Extremities: Normal without edema or cyanosis Neurologic: Non-focal, CNII-XII grossly intact Psychiatric: Normal affect and mood. LAB/ RADIOLOGY/ DIAGNOSTIC REVIEW: Recent Labs Lab Units 12/24/23215712/24/23 1647 12/24/23 1522 12/24/23 11012/22/23213512/19/232228 WBC K/cumm 17.3* -- -- -- 13.1* 10.4* HEMOGLOBIN, POC g/dL -- 9.0* 8.2* < > -- -- HEMOGLOBIN g/dL 8.3* -- -- -- 8.5* 7.7* HEMATOCRIT % 27.3* -- -- -- 27.2* 25.3* HEMATOCRIT POC % -- 27.0* 25.0* < > -- -- PLATELETS K/cumm 336 -- -- -- 395 337 < > = values in this interval not displayed. Recent Labs Lab Units 12/25/23 0845 12/24/23215712/24/23 2041 12/24/23 1109 12/22/23213512/19/232228 SODIUM mmol/L -- 138 -- -- 133* 135 POTASSIUM PLASMA mmol/L -- 4.1 -- -- 4.7 4.6 CHLORIDE mmol/L -- 101 -- -- 98 101 CO2 mmol/L -- 26 -- -- 24 26 BUN SERUM mg/dL -- 16 -- -- 22 22 CREATININE mg/dL -- 0.86 -- -- 0.78 0.73 GLUCOSE mg/dL -- 180 -- -- 174 185 POC GLUCOSE MONITOR mg/dL 134 -- 201* < > -- -- CALCIUM mg/dL -- 8.7 -- -- 8.7 8.6 < > = values in this interval not displayed. I have reviewed the laboratory results. ASSESSMENT/ PLAN: Darius Russo is a 63 y.o. female with Physical deconditioning, status post open left colon resection and colostomy, LIBRA/BSO. Now 1 Day Post-Op Pain: Scheduled tylenol, NSAID, gabapentin, dPCA Diet: Adult Diet Regular DVT PPx: lovenox, SCDs Activity: with assist, PT, OT Dispo: floor Lovenox needed at discharge: yes/no Home health needed at discharge: yes/no - keep saba and fluids today - keep OVEN HEATER - d/c entereg - switch cipro/flagyl to Zosyn per ID Code status: Full Code PT/OT Dispo Rec: PT Recommendation/Plan: Home with family, Home with intermittent assist, No further PT indicated / OT Recommendation: Home with family, Home with intermittent assist, No further OT indicated Cosigned by Yo Perez MD at 12/27/2023 1:20 PM STUDIO ARTIST IO ARTIST IO ARTIST * Chana Cuenca MD - 12/25/2023 5:34 AM CST [facility] Oncology Post -Op note 63 y.o. POD#1 s/p ex-lap, LIBRA, BSO, preop stents, total colectomy for persistent colitis with colonic microperforation and abscesses and a 15cm complex pelvic mass. Frozen: Mucinous cystadenoma EBL 250cc Interval History: - NAEO - Comfortable this AM Vitals: Temp: [36.1 ??C (97 ??F)-37.2 ??C (99 ??F)] 36.5 ??C (97.7 ??F) Pulse: [90-111] 92 Resp: [15-23] 17 BP: (80-123)/(44-76) 93/46 Arterial Line BP: (113-142)/(48-56) 129/56 Intake/Output Intake/Output Summary (Last 24 hours) at 12/25/2023 0534 Last data filed at 12/25/2023 0352 Gross per 24 hour Intake 2710 ml Output 1335 ml Net 1375 ml By 8 hour Shift: 35/125/125 Physical Exam: General: NAD Pulmonary: non-labored Cardiovascular: Regular rate and rhythm Abdomen: Soft, appropriately tender to palpation, nondistended Incision: MLV with pressure dressing. Shadowing along incision, not expanding. Drains: Saba with blood tinted concentrated urine Extremities: WWP, SCDs in place Recent Labs Lab Units 12/24/23 2158 12/24/23 2041 12/24/23 1804 12/24/23 1607 12/24/23 1522 12/24/23 1347 12/24/23 1109 12/22/23 2136 12/19/23 2229 WBC K/cumm 17.3* -- -- -- -- -- -- 13.1* 10.4* HEMOGLOBIN, POC g/dL -- -- -- -- 8.2* 9.3* < > -- -- HEMOGLOBIN g/dL 8.3* -- -- -- -- -- -- 8.5* 7.7* HEMATOCRIT % 27.3* -- -- -- -- -- -- 27.2* 25.3* HEMATOCRIT POC % -- -- -- -- 25.0* 28.0* < > -- -- PLATELETS K/cumm 336 -- -- -- -- -- -- 395 337 NEUTROS ABS K/cumm -- -- -- -- -- -- -- 9.3* 6.7* SODIUM mmol/L 138 -- -- -- -- -- -- 133* 135 POTASSIUM PLASMA mmol/L 4.1 -- -- -- -- -- -- 4.7 4.6 CHLORIDE mmol/L 101 -- -- -- -- -- -- 98 101 CO2 mmol/L 26 -- -- -- -- -- -- 24 26 ANIONGAP mmol/L 11 -- -- -- -- -- -- 11 8 GLUCOSE mg/dL 180 -- -- -- -- -- -- 174 185 POC GLUCOSE MONITOR mg/dL -- 201* 189 < > 161 142 < > -- -- BUN SERUM mg/dL 16 -- -- -- -- -- -- 22 22 CREATININE mg/dL 0.86 -- -- -- -- -- -- 0.78 0.73 CALCIUM mg/dL 8.7 -- -- -- -- -- -- 8.7 8.6 ALBUMIN g/dL -- -- -- -- -- -- -- 2.9* 2.6* MAGNESIUM mg/dL -- -- -- -- -- -- -- 1.8 1.8 PHOSPHORUS PLASMA mg/dL -- -- -- -- -- -- -- 3.6 3.3 < > = values in this interval not displayed. Imaging: XR Abdomen Ap 1 Vw Narrative: EXAMINATION: Abdomen, one view. HISTORY: 63-year-old female with abdominal distention COMPARISON: Abdominal radiograph 12/04/2023 Impression: A single view of the abdomen is submitted for evaluation. Partially imaged left pleural effusion appears similar in size to previous study. Cholecystectomy clips present. Normal bowel gas pattern. Dictated by: Yareli York MD The radiology attending physician has personally reviewed this study, and had reviewed and/or edited this written report and agrees with it. Electronically signed by: Shin King M.D. Assessment and Plan 63 y.o. POD#1 s/p ex-lap, LIBRA, BSO, preop stents, total colectomy for persistent colitis with colonic microperforation and abscesses and a 15cm complex pelvic mass. Frozen: Mucinous cystadenoma EBL 250cc -ID: s/p pre-op ertapenem. Cipro/flagyl Afebrile, no signs or symptoms of infection. #IBD with multifocal infection- abx per primary team -Heme: #Anemia: Hb ~8 pre-operatively. POD0 Hb 8.3. Hemoglobin stable. -CV/Pulm: Vital signs stable. Encourage IS. -GI: reg diet per CRS. Tolerating clears. #IBD with multifocal infection- as above -: Saba in place. Can VT today from Business Office Representative Onc perspective. -Pain: well controlled with epidural, IV toradol and PO pain medications. Pain reg per CRS -PPX: per CRS Business Office Representative Onc will sign off. We will task for follow up with Dr. Rhodes. Please do not hesitate to reach out with any further questions and concerns. Chana Cuenca MD [employer] PGY-3 Cosigned by Gin Mckenna MD at 12/25/2023 7:00 AM STUDIO ARTIST IO ARTIST IO ARTIST IO ARTIST Associated attestation - Gin Mckenna MD - 12/25/2023 7:00 AM STUDIO ARTIST I have seen and examined the patient on 12/25/23. I agree with the findings and plan of care as documented in the resident's/fellow's note. and as discussed with the resident/fellow.. -Overall doing well. Defer primary management to CRS. Will arrange for outpatient secondary school registrar follow-up. Will sign off, please call with questions. * María Graham MD PhD - 12/24/2023 8:02 AM CST Medicine Daily Progress Note Patient: Darius Russo : 1960 (63 y.o.) Date of Admission: 11/25/2023 Date of Service: 12/24/23 SUBJECTIVE Interval Events: NAEO. VSS. No new labs. At OR for colectomy, LIBRA+BSO. Plan for transfer to CRS vs Business Office Representative/Onc post-op. ID recommending re-consult on transfer for definitive antibiotic plan. OBJECTIVE Vitals Most Recent: Vitals: 12/24/23 0535 BP: 123/63 Pulse: 111 Resp: 20 Temp: 37 ??C (98.6 ??F) SpO2: 94% 24 Hour Min/Max: Temp Min: 36.3 ??C (97.3 ??F) Max: 37.1 ??C (98.8 ??F) Pulse Min: 99 Max: 115 BP Min: 123/63 Max: 147/74 Resp Min: 16 Max: 20 SpO2 Min: 94 % Max: 100 % Intake/Output Intake/Output Summary (Last 24 hours) at 12/24/2023 0802 Last data filed at 12/23/2023 0855 Gross per 24 hour Intake 325 ml Output -- Net 325 ml Current Medications Scheduled Meds: Scheduled Medications Medication Dose Route Frequency ciprofloxacin (CIPRO) tablet 500 mg 500 mg oral BID - special [Held by Provider] enoxaparin (LOVENOX) syringe 40 mg 40 mg subcutaneous Daily-2100 folic acid (FOLVITE) tablet 1 mg 1 mg oral Daily [Held by Provider] losartan (COZAAR) tablet 25 mg 25 mg oral Daily metroNIDAZOLE (FLAGYL) tablet 500 mg 500 mg oral TID multivitamin with folic acid 400 mcg tablet 1 tablet 1 tablet oral Daily neomycin (MYCIFRADIN) tablet 1,000 mg 1,000 mg oral TID pantoprazole DR (PROTONIX) extended release tablet 40 mg 40 mg oral Daily thiamine (VITAMIN B1) tablet 100 mg 100 mg oral Daily Continuous Meds: Current Facility-Administered Medications Medication Dose Route Frequency Last Admin PRN Meds: PRN Medications Medication Dose Route Frequency Last Admin acetaminophen (TYLENOL) tablet 1,000 mg 1,000 mg oral Q6H PRN 1,000 mg at 12/23/23 0844 benzonatate (TESSALON) capsule 100 mg 100 mg oral TID PRN 100 mg at 12/21/23 1750 ondansetron (ZOFRAN) injection 4 mg 4 mg intravenous Q4H PRN 4 mg at 12/24/23 0300 Physical Exam Patient unable to be examined this AM - at OR Laboratory Results Lab Results Component Value Date GLUCOSE 174 12/22/2023 CALCIUM 8.7 12/22/2023 SODIUM 133 (L) 12/22/2023 POTASSIUM 4.7 12/22/2023 CO2 24 12/22/2023 CHLORIDE 98 12/22/2023 BUNSER 22 12/22/2023 CREATININE 0.78 12/22/2023 Lab Results Component Value Date WBC 13.1 (H) 12/22/2023 HGB 8.5 (L) 12/22/2023 HCT 27.2 (L) 12/22/2023 MCV 85.0 12/22/2023 LABPLAT 395 12/22/2023 Imaging Results XR Abdomen Ap 1 Vw Narrative: EXAMINATION: Abdomen, one view. HISTORY: 63-year-old female with abdominal distention COMPARISON: Abdominal radiograph 12/04/2023 Impression: A single view of the abdomen is submitted for evaluation. Partially imaged left pleural effusion appears similar in size to previous study. Cholecystectomy clips present. Normal bowel gas pattern. Dictated by: Yareli York MD The radiology attending physician has personally reviewed this study, and had reviewed and/or edited this written report and agrees with it. Electronically signed by: Shin King M.D. ASSESSMENT & PLAN Darius Russo is a 63 y.o. woman with relevant PMH of IBD (2022 UC, now c/f Crohn's), adnexal mass, HTN, T2DM directly admitted for expedited therapy for IBD iso progressive weight loss, found to have disseminated infectious process thought to be 2/2 bacterial translocation from contained colonicperforation. #IBD c/b multifocal infection (colon, lungs, spleen, liver) Patient was diagnosed with ulcerative colitis in 2022, since which time she has been prescribed rectal mesalamine. She has had recurrent admissions for sigmoid diverticulitis which have been managed medically; most recently, patient was started on a 4wk course of ciprofloxacin/metronidazole (11/05)continued this admission. Patient's symptoms include daily diarrhea (now improving) and profound weight loss as detailed elsewhere. Imaging/scopes here c/f colonic Crohn's c/b sigmoid microperf &suspected bacteremia leading to disseminated infection (FRANKLIN cavitary lesions, spleen/liver abscesses) that have improved w/antibiotic therapy. Comprehensive diagnostic work-up otherwise unrevealing (l ikely sterilized by abx). Not a candidate for remicade 2/2 infection. Course c/b SVT, culture neg sepsis 12/03, 12/08 suspected 2/2 transient bacterial translocation and preventing discharge prior tosurgical intervention. - GI, ID c/s, recs appreciated - CRS, Business Office Representative/Onc c/s, recs appreciated: Colectomy + LIBRA/BSO 12/23 - Continue ciprofloxacin 500mg PO BID, metronidazole 500mg PO BID (11/05-12/03;12/05-12/08; 12/09-) s/p vanc/zosyn (12/03-12/05), erta (12/08-12/09) #Recurrent SVT: Patient with recurrent episodes of symptomatic SVT after BM c/b type 2 NC 12/03, suspect 2/2 transient gut translocation as above. K>4, Mg>2 #FTT/severe malnutrition, improving #Acute weight loss 65lb weight loss over 4mo; suspect related to multifocal process affecting lung/liver/spleen or mass effect from her adnexal mass. Patient endorses poor appetite, early satiety. Folate/B12 normalizedwith enteral repletion. - Nutrition c/s, recs appreciated - s/p pyridoxine B6 100mg PO daily; s/p HD thiamine; thiamine 100mg PO daily, folic acid 1mg daily,MVI daily #Liver/spleen iron deposition: 11/12 MRI, etiology unclear. 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 Non-FDG avid. Business Office Representative/Onc c/s as above. #HTN: hold losartan 25mg daily #T2DM: A1c 5.7%. HDSSI Code Status: Full Code Disposition: transfer to CRS vs Business Office Representative/Onc post-op Best contact: Primary Emergency Contact: JEAN CLAUDE RUSSO Diet: NPO Diet VTE Prophylaxis: enoxaparin 40mg SQ qhs PT: PT Recommendation/Plan: Home with family, Home with intermittent assist, No further PT indicated OT:OT Recommendation: Home with family, Home with intermittent assist, No further OT indicated María Graham MD PhD Resident Physician, Internal Medicine Cosigned by Parmjit Meehan MD at 12/24/2023 1:36 PM STUDIO ARTIST IO ARTIST IO ARTIST IO ARTIST Associated attestation - Parmjit Meehan MD - 12/24/2023 1:36 PM STUDIO ARTIST The resident/fellow saw and examined the patient, we discussed their findings, and I am in agreement with the plan based on the discussion with the resident/fellow. I did not personally examine the patient. My total encounter time on this service date was 10 minutes which was spent performing a [id number] encounter and personally completing the provider-level activities documented in the note. This includes time spent prior to the visit and after the visit in direct care of the patient. This time does not include time spent in any separately reportable services. * Vicki King MD - 12/24/2023 6:25 AM CST Images from the original note were not included. [facility] Daily Progress Note Colorectal Surgery Surgery PATIENT NAME: Darius Russo : 1960 ADMIT DATE: 11/25/2023 6:29 PM LOS: 29 Subjective CHIEF COMPLAINT: Physical deconditioning INTERVAL HISTORY: -TRA LANZA -Patient able to finish the bowel prep by 3 AM, one episode of emesis Objective MEDICATIONS: Scheduled: [Transfer Hold] ciprofloxacin, 500 mg, oral, BID - special [Held by Provider] enoxaparin, 40 mg, subcutaneous, Daily-2100 ertapenem, 1,000 mg, intravenous, Once [Transfer Hold] folic acid, 1 mg, oral, Daily [Held by Provider] losartan, 25 mg, oral, Daily [Transfer Hold] metroNIDAZOLE, 500 mg, oral, TID [Transfer Hold] multivitamin therapeutic, 1 tablet, oral, Daily neomycin, 1,000 mg, oral, TID [Transfer Hold] pantoprazole DR, 40 mg, oral, Daily [Transfer Hold] thiamine, 100 mg, oral, Daily Infusions: Lactated Ringer's, 30 mL/hr, Last Rate: 30 mL/hr (12/24/23 1143) PRN: [Transfer Hold] acetaminophen [Transfer Hold] benzonatate sodium chloride 0.9% clindamycin (CLEOCIN) 600 mg, gentamicin (GARAMYCIN) 240 mg in sodium chloride 0.9% 500 mL irrigation solution [Transfer Hold] ondansetron sodium chloride 0.9% sodium chloride 0.9% VITALS: 24hr Min/Max: Temp Min: 37 ??C (98.6 ??F) Max: 37.2 ??C (99 ??F) Pulse Min: 99 Max: 115 BP Min: 96/76 Max: 147/74 Resp Min: 16 Max: 23 SpO2 Min: 94 % Max: 100 % Most Recent: Vitals: 12/24/23 1108 12/24/23 1110 12/24/23 1120 12/24/23 1130 BP: 96/76 96/76 111/60 109/63 BP Location: Right arm Patient Position: Lying;HOB 30 degrees Pulse: 100 99 101 99 Resp: 18 19 Temp: 37.2 ??C (99 ??F) 37.1 ??C (98.8 ??F) 37.2 ??C (99 ??F) 37.2 ??C (99 ??F) TempSrc: Tympanic SpO2: 97% 96% 97% 97% Weight: Height: No intake or output data in the 24 hours ending 12/24/23 1305 PHYSICAL EXAM: General: Well nourished, comfortable Psych: alert and calm HEENT: normocephalic/atraumatic, anicteric Pulm: Normal work of breathing Cardiac: Regular rate and rhythm GI: abd soft, nondistended, mild tenderness Neuro: ambulatory, non-focal Skin: warm and dry Musculoskeletal: no deformities LAB/ RADIOLOGY/ DIAGNOSTIC REVIEW: Chem/LFT Lab History Latest Ref Rng & Units 12/13/2023 21:51 12/16/2023 22:51 12/19/2023 22:29 12/22/2023 21:36 Labs-Chem/LFT Sodium 135 - 145 mmol/L 137 135 135 133 Creatinine 0.60 - 1.10 mg/dL 0.78 0.76 0.73 0.78 CrCl- Actual Body Weight (Cockcroft-Gault) 67.1 65.3 67.3 63 Hematology Lab History Latest Ref Rng & Units 12/17/2023 20:27 12/19/2023 22:29 12/22/2023 21:36 12/24/2023 11:09 Labs - Hematology WBC 3.8 - 9.9 K/cumm 11.0 10.4 13.1 Total Hb, POC 11.9 - 15.5 g/dL 8.1 7.7 8.5 8.8 Hct 35.6 - 45.5 % 27.4 25.3 27.2 Plt 150 - 400 K/cumm 334 337 395 Neutrophil abs 1.5 - 6.5 K/cumm 8.0 6.7 9.3 Lymphocytes, abs 0.8 - 3.3 K/cumm 1.7 2.2 2.2 I have reviewed the laboratory results. ASSESSMENT/ PLAN: 63 y.o. female with hx of DM, HTN, and recently diagnosed IBD (originally thought to be UC but is now more likely to be Crohn's) who has persistent colitis of her sigmoid colon with microperforation,multiple abscesses of the liver and spleen, and now new left upper lobe lung lesions, some of whichare cavitary. She is not a candidate for anti-TNF treatment in the setting of her lung lesions until etiology is determined. Pt also has a new pelvic mass that requires resection. Discussed with patient indications, benefits, and risks of the surgery. All of patients questions were answered. -Plan for combined resection with billposting supervisor today Vicki King MD 12/24/2023 Cosigned by Yo Perez MD at 12/24/2023 5:11 PM STUDIO ARTIST IO ARTIST IO ARTIST * Sylvia Trujillo, ESTHER - 12/23/2023 3:29 PM CST NUTRITION ASSESSMENT Nutrition Status: Patient meets criteria for severe chronic malnutrition, reference AAIM (ASPEN) guidelines. Present on Admission: Yes REASON FOR ASSESSMENT: Follow Up Encounter Date: 12/23/23 3:29 PM Admission Date: 11/25/2023 LOS: 28 days HPI: Patient is a 63 y.o. female female PMH HTN, T2DM, s/p cholecystectomy, a large adnexal mass c/f malignancy, and suspected crohn???s colitis who presents for active colitis. Objective Past Medical History: Diagnosis Date Adrenal mass (HCC) Diabetes mellitus (HCC) Diverticulitis Hypertension Past Surgical History: Procedure Laterality Date CHOLECYSTECTOMY 08/2023 COLONOSCOPY 2021 TUBAL LIGATION Social History Tobacco Use Smoking status: Never Smokeless tobacco: Never Substance and Sexual Activity Drug use: Never Sexual activity: Defer Alcohol Use: Not At Risk (11/13/2023) AUDIT-C Frequency of Alcohol Consumption: Never Average Number of Drinks: Patient does not drink Frequency of Binge Drinking: Never MEDICATION/LAB REVIEW: Scheduled Meds: ciprofloxacin, 500 mg, oral, BID - special [Held by Provider] enoxaparin, 40 mg, subcutaneous, Daily-2100 folic acid, 1 mg, oral, Daily [Held by Provider] losartan, 25 mg, oral, Daily metroNIDAZOLE, 500 mg, oral, TID multivitamin therapeutic, 1 tablet, oral, Daily neomycin, 1,000 mg, oral, TID pantoprazole DR, 40 mg, oral, Daily polyethylene glycol, 4,000 mL, oral, Once thiamine, 100 mg, oral, Daily Continuous Infusions: PRN Meds: acetaminophen benzonatate ondansetron Recent Labs Lab Units 12/22/23213512/19/23222812/16/232250 SODIUM mmol/L 133* 135 135 POTASSIUM PLASMA mmol/L 4.7 4.6 4.6 CHLORIDE mmol/L 98 101 101 CO2 mmol/L 24 26 28 BUN SERUM mg/dL 22 22 21 CREATININE mg/dL 0.78 0.73 0.76 [id number] mL/min/1.73 m2 84 >90 87 CALCIUM mg/dL 8.7 8.6 8.4* ALBUMIN g/dL 2.9* 2.6* 2.8* PHOSPHORUS PLASMA mg/dL 3.6 3.3 3.3 MAGNESIUM mg/dL 1.8 1.8 1.7 Recent Labs Lab Units 12/22/23213512/19/23222812/16/[id number]/16/23203712/16/23 1634 GLUCOSE mg/dL 174 185 139 -- -- POC GLUCOSE MONITOR mg/dL -- -- -- 192 164 No results found for: ALT , AST , BILIRUBIN , ALKPHOS , LIPASE Lab Results Component Value Date HGBA1C 5.7 (H) 11/04/2023 HDL 27 (L) 12/04/2023 LDLCALC 28 12/04/2023 CHOL 71 12/04/2023 TRIG 75 12/04/2023 NURSING ASSESSMENT: Last BM Date: 12/23/23 Bowel Sounds (All Quadrants): Active Emesis Assessment Emesis Color/Appearance: Clear, Yellow Juliano Scale Score: 20 Skin Integrity: Surgical incision Vital Signs BP: 127/68 Temp: 36.3 ??C (97.3 ??F) Pulse: 99 Resp: 18 SpO2: 97 % Intake/Output Summary (Last 24 hours) at 12/23/2023 1529 Last data filed at 12/23/2023 0855 Gross per 24 hour Intake 325 ml Output -- Net 325 ml Adult Malnutrition Scoring Tool (MST) What diet do you follow at home?: regular diet Have You Recently Lost Weight Without Trying?: Yes (Comment) How Much Weight Have You Lost?: 34 lb or more Have you been eating poorly because of a decreased appetite?: Yes Malnutrition Screening Tool (MST) Score: 5 Hunger Screen - Admission Within the past 12 months the food we bought just didn't last and we didn't have money to get more.: Never true Within the past 12 months we worried whether our food would run out before we got money to buy more.: Never true Within the past 12 months, you worried that your food would run out before you got the money to buymore.: Never true Within the past 12 months, the food you bought just didn't last and you didn't have money to get more.: Never true Anthropometrics Weight: 55.4 kg (122 lb 2.2 oz) Admission Weight : 58.7 kg Weight Change: -0.07 kg (-0.16 lbs) IBW/kg (Calculated) : 47.6 kg Height: 154.9 cm (5' 0.98 ) Weight in (lb) to have BMI = 25: 132 BMI (Calculated): 23.1 Wt Readings from Last 10 Encounters: 12/23/23 55.4 kg (122 lb 2.2 oz) 11/25/23 58.2 kg (128 lb 3.2 oz) 11/13/23 63 kg (139 lb) 11/05/23 61.5 kg (135 lb 9.6 oz) 10/27/23 63 kg (139 lb) 10/23/23 63 kg (139 lb) 10/03/23 66.9 kg (147 lb 7.8 oz) 10/02/23 67.4 kg (148 lb 8 oz) ESTIMATED NEEDS: Weight Used for Equation Calculations (RD Determined): 58.7 kg (129 lb 6.6 oz) Total Kcal/kg Estimated Needs : 1761 Kcal/k. Type of Weight Used for Estimated Kcals: RD determined Total Protein Estimated Needs (gm): 70.49 Protein Needs Based on g/k.2 Type of Weight Used for Estimated Protein : Current Dietary Orders (From admission, onward) Start Ordered 12/24/23 0001 NPO Diet Diet effective midnight 12/23/23 0549 12/10/23 1551 Oral Nutrition Supplements ([facility]) Select Supplement: [employer] English 1.4 - Vanilla All Meals Question: ([facility]) Select Supplement: Answer: [employer] 1.4 - Vanilla 12/10/23 1550 12/04/23 1159 Adult Diet Regular Diet effective now Question: ([facility]) Diet type Answer: Regular 12/04/23 1158 Allergies: Reviewed. IMPRESSION: Patient states she is eating okay but noticed that the cyst is taking up a lot of room. Patient is weight stable for the last week, at 122 lbs. Patient is still drinking 2 [employer] supplements. Patient expects appetite to burr picker tremendously once she has cyst removed on 12/23. Family also continues to bring in snacks. Weights/Vitals Height Weight (LB) Weight (KG) Weight Method 12/03/2023 127 lb 6.4 oz 57.788 kg Standing scale 12/04/2023 5' 1 127 lb 57.607 kg 12/09/2023 125 lb 3.2 oz 56.79 kg Standing scale 12/10/2023 130 lb 4.7 oz 59.1 kg Bed scale 12/16/2023 123 lb 9.6 oz 56.065 kg Standing scale AAIM (ASPEN) MALNUTRITION ASSESSMENT: Date of completion: 11/27/2023 ASPEN/AND Malnutrition Screening: Chronic illness or injury severe Subcutaneous Fat Loss Severity: Severe Muscle Mass Loss Severity: Severe Patient Meets Criteria for Severe Malnutrition: Yes NUTRITION FOCUSED PHYSICAL EXAM: Completed. Subcutaneous Fat Loss Orbital Region - Surrounding the Eye: Hollow look Upper Arm Region - Triceps/Biceps: Some depth pinch but not ample Muscle Loss Moravian Region - Temporalis Muscle: Slight depression Clavicle Bone Region - Pectoralis Major, Deltoid, Trapezius Muscles: Protruding, prominent bone Clavicle and Acromion Bone Region - Deltoid Muscle: Shoulder to arm joint looks square Anterior Thigh and Patellar Region - Quadricep Muscle: Depression along thigh Posterior Calf Region - Gastrocnemius Muscle: Thin, minimal to no muscle definition NUTRITION DIAGNOSIS: Nutrition Diagnosis 1: Protein-Calorie Malnutrition - Severe Related to: Chronic illness/injury Evidenced by: Physical finding INTERVENTION(S): Summary: Medical food supplement, Encouragement, Meals and snacks Continue [employer] 1.4 instead of 1.0 (455 calories per bottle) Discussed she has to have 1400 calories just to maintain her wieght but up to 1700 calories to slowly gain weight Weighed weekly GOAL(S): Promote slow and steady weight gain 1/2 to 1 pound per week MONITORING/EVALUATION: Appetite, Discharge plans, I/O, Plan of care, Labs Sylvia Trujillo MS [facility], [facility], IO ARTIST * Vicki King MD - 12/23/2023 12:53 PM CST Images from the original note were not included. [facility] Daily Progress Note Colorectal Surgery Surgery PATIENT NAME: Darius Russo : 1960 ADMIT DATE: 11/25/2023 6:29 PM LOS: 28 Subjective CHIEF COMPLAINT: Physical deconditioning INTERVAL HISTORY: -TRA LANZA -Patient excited for surgery tomorrow Objective MEDICATIONS: Scheduled: ciprofloxacin, 500 mg, oral, BID - special [Held by Provider] enoxaparin, 40 mg, subcutaneous, Daily-2100 folic acid, 1 mg, oral, Daily [Held by Provider] losartan, 25 mg, oral, Daily metroNIDAZOLE, 500 mg, oral, TID multivitamin therapeutic, 1 tablet, oral, Daily neomycin, 1,000 mg, oral, TID ondansetron ODT, 8 mg, oral, Once pantoprazole DR, 40 mg, oral, Daily polyethylene glycol, 238 g, oral, Once thiamine, 100 mg, oral, Daily Infusions: PRN: acetaminophen benzonatate ondansetron VITALS: 24hr Min/Max: Temp Min: 36.3 ??C (97.3 ??F) Max: 37.2 ??C (99 ??F) Pulse Min: 99 Max: 105 BP Min: 118/54 Max: 127/68 Resp Min: 18 Max: 18 SpO2 Min: 97 % Max: 97 % Most Recent: Vitals: 12/22/23 0740 12/22/23 1535 12/22/23202512/23/23 0835 BP: 127/61 118/54 124/69 127/68 BP Location: Left arm Left arm Left arm Patient Position: Lying;HOB 30 degrees Lying;HOB 30 degrees Pulse: 96 105 102 99 Resp: 16 18 18 Temp: 37 ??C (98.6 ??F) 37.2 ??C (99 ??F) 37 ??C (98.6 ??F) 36.3 ??C (97.3 ??F) TempSrc: Oral Oral Oral SpO2: 98% 97% 97% 97% Weight: 55.4 kg (122 lb 2.2 oz) Height: 154.9 cm (5' 0.98 ) Intake/Output Summary (Last 24 hours) at 12/23/2023 1253 Last data filed at 12/23/2023 0855 Gross per 24 hour Intake 650 ml Output -- Net 650 ml PHYSICAL EXAM: General: Well nourished, comfortable Psych: alert and calm HEENT: normocephalic/atraumatic, anicteric Pulm: Normal work of breathing Cardiac: Regular rate and rhythm GI: abd soft, nondistended, mild tenderness to palpation LLQ without rebound or guarding Neuro: ambulatory, non-focal Skin: warm and dry Musculoskeletal: no deformities LAB/ RADIOLOGY/ DIAGNOSTIC REVIEW: Chem/LFT Lab History Latest Ref Rng & Units 12/13/2023 21:51 12/16/2023 22:51 12/19/2023 22:29 12/22/2023 21:36 Labs-Chem/LFT Sodium 135 - 145 mmol/L 137 135 135 133 Creatinine 0.60 - 1.10 mg/dL 0.78 0.76 0.73 0.78 CrCl- Actual Body Weight (Cockcroft-Gault) 67.1 65.3 67.3 63 Hematology Lab History Latest Ref Rng & Units 12/16/2023 22:51 12/17/2023 20:27 12/19/2023 22:29 12/22/2023 21:36 Labs - Hematology WBC 3.8 - 9.9 K/cumm 10.9 11.0 10.4 13.1 Total Hb, POC 11.9 - 15.5 g/dL 7.7 8.1 7.7 8.5 Hct 35.6 - 45.5 % 25.8 27.4 25.3 27.2 Plt 150 - 400 K/cumm 347 334 337 395 Neutrophil abs 1.5 - 6.5 K/cumm 7.1 8.0 6.7 9.3 Lymphocytes, abs 0.8 - 3.3 K/cumm 2.3 1.7 2.2 2.2 I have reviewed the laboratory results. ASSESSMENT/ PLAN: 63 y.o. female with hx of DM, HTN, and recently diagnosed IBD (originally thought to be UC but is now more likely to be Crohn's) who has persistent colitis of her sigmoid colon with microperforation,multiple abscesses of the liver and spleen, and now new left upper lobe lung lesions, some of whichare cavitary. She is not a candidate for anti-TNF treatment in the setting of her lung lesions until etiology is determined. Pt also has a new pelvic mass that requires resection. Discussed with patient indications, benefits, and risks of the surgery. All of patients questions were answered. -Plan for combined resection with billposting supervisor tomorrow -NPO MN -Hold antihypertensive medications -Bowel prep today with Golytely and antibiotics Vicki King MD 12/23/2023 Cosigned by Yo Perez MD at 12/23/2023 4:15 PM STUDIO ARTIST IO ARTIST IO ARTIST * Jhonny Kirby MD - 12/23/2023 6:30 AM CST Medicine Daily Progress Note Patient: Darius Russo : 1960 (63 y.o.) Date of Admission: 11/25/2023 Date of Service: 12/23/23 SUBJECTIVE Interval Events: - NAEO. Doing well this AM. - Interval increase in WBC 8.5 (7.7), no infectious symptoms - Await surgery 12/23. NPO midnight - ID consult after surgery for antibiotic management OBJECTIVE Vitals Most Recent: Vitals: 12/22/232025 BP: 124/69 Pulse: 102 Resp: 18 Temp: 37 ??C (98.6 ??F) SpO2: 97% 24 Hour Min/Max: Temp Min: 37 ??C (98.6 ??F) Max: 37.2 ??C (99 ??F) Pulse Min: 96 Max: 105 BP Min: 118/54 Max: 127/61 Resp Min: 16 Max: 18 SpO2 Min: 97 % Max: 98 % Intake/Output Intake/Output Summary (Last 24 hours) at 12/23/2023 0630 Last data filed at 12/22/2023 1300 Gross per 24 hour Intake 650 ml Output -- Net 650 ml Current Medications Scheduled Meds: Scheduled Medications Medication Dose Route Frequency ciprofloxacin (CIPRO) tablet 500 mg 500 mg oral BID - special enoxaparin (LOVENOX) syringe 40 mg 40 mg subcutaneous Daily-2100 folic acid (FOLVITE) tablet 1 mg 1 mg oral Daily [Held by Provider] losartan (COZAAR) tablet 25 mg 25 mg oral Daily metroNIDAZOLE (FLAGYL) tablet 500 mg 500 mg oral BID multivitamin with folic acid 400 mcg tablet 1 tablet 1 tablet oral Daily pantoprazole DR (PROTONIX) extended release tablet 40 mg 40 mg oral Daily thiamine (VITAMIN B1) tablet 100 mg 100 mg oral Daily Continuous Meds: Current Facility-Administered Medications Medication Dose Route Frequency Last Admin PRN Meds: PRN Medications Medication Dose Route Frequency Last Admin acetaminophen (TYLENOL) tablet 1,000 mg 1,000 mg oral Q6H PRN 1,000 mg at 12/22/23 1059 benzonatate (TESSALON) capsule 100 mg 100 mg oral TID PRN 100 mg at 12/21/23 1750 ondansetron (ZOFRAN) injection 4 mg 4 mg intravenous Q4H PRN 4 mg at 12/09/23 1222 Physical Exam General: NAD, well developed, well nourished HEENT: NCAT. PERRL, EOMI, anicteric. MMM. Hearing intact to interview. Neck ROM intact to interview. Supple. Lungs: Unlabored on RA. No dyspnea with conversation. Cardiovascular: RRR. GI: Soft, mildly TTP LLQ w/o rebound or guarding Skin: No concerning rashes, lesions, or bruises on exposed skin. Extremities: No edema or cyanosis in BLE. WWP. Neurologic: Alert and oriented to interview, person, place, time, setting, and recent and remote personal history. Spontaneously moves all extremities, face symmetric to activation. No reported or observed focal motor or sensory neurologic deficits to gross exam. Psychiatric: Neutral to good mood with mood-syntonic affect. Does not appear to be responding to internal stimuli. Laboratory Results Lab Results Component Value Date GLUCOSE 174 12/22/2023 CALCIUM 8.7 12/22/2023 SODIUM 133 (L) 12/22/2023 POTASSIUM 4.7 12/22/2023 CO2 24 12/22/2023 CHLORIDE 98 12/22/2023 BUNSER 22 12/22/2023 CREATININE 0.78 12/22/2023 Lab Results Component Value Date WBC 13.1 (H) 12/22/2023 HGB 8.5 (L) 12/22/2023 HCT 27.2 (L) 12/22/2023 MCV 85.0 12/22/2023 LABPLAT 395 12/22/2023 Imaging Results XR Abdomen Ap 1 Vw Narrative: EXAMINATION: Abdomen, one view. HISTORY: 63-year-old female with abdominal distention COMPARISON: Abdominal radiograph 12/04/2023 Impression: A single view of the abdomen is submitted for evaluation. Partially imaged left pleural effusion appears similar in size to previous study. Cholecystectomy clips present. Normal bowel gas pattern. Dictated by: Yareli York MD The radiology attending physician has personally reviewed this study, and had reviewed and/or edited this written report and agrees with it. Electronically signed by: Shin King M.D. ASSESSMENT & PLAN Darius Russo is a 63 y.o. woman with relevant PMH of IBD (2022 UC, now c/f Crohn's), adnexal mass, HTN, T2DM directly admitted for expedited therapy for IBD iso progressive weight loss, found to have disseminated infectious process thought to be 2/2 bacterial translocation from contained colonicperforation. #IBD c/b multifocal infection (colon, lungs, spleen, liver), Managing Patient was diagnosed with ulcerative colitis in 2022, since which time she has been prescribed rectal mesalamine. She has had recurrent admissions for sigmoid diverticulitis which have been managed medically; most recently, patient was started on a 4wk course of ciprofloxacin/metronidazole (11/05). 11/12 colonoscopy with cryptitis and inflammation now c/f colonic Crohn's, MRI dated same with sigmoid diverticulitis, contained perforation, rectal/sigmoid inflammation. Patient's symptoms include daily diarrhea (now improving) and profound weight loss as detailed elsewhere. She was admitted for remicade vs operative management, course c/b likely infectious process (lungs, liver, spleen) preventi ng remicade initiation. Course c/b recurrent SVT, culture neg sepsis 12/03, 12/08 suspected 2/2 transient bacterial translocation and preventing discharge prior to surgical intervention. - GI c/s, recs appreciated: colectomy - ID c/s, recs appreciated: abx as below - CRS, Business Office Representative/Onc c/s, recs appreciated: Await colectomy + LIBRA/BSO tentatively scheduled 12/23. Working on moving up date pending CRS availability - Continue ciprofloxacin 500mg PO BID, metronidazole 500mg PO BID (11/05-12/03;12/05-12/08; 12/09-) s/p vanc/zosyn (12/03-12/05), erta (12/08-12/09) #Recurrent SVT, No recent episodes Patient with recurrent episodes of symptomatic SVT after BM c/b type 2 NC 12/03, suspect 2/2 transient gut translocation as above. K>4, Mg>2 #FTT/severe malnutrition, improving #Acute weight loss 65lb weight loss over 4mo; suspect related to multifocal process affecting lung/liver/spleen or mass effect from her adnexal mass. Patient endorses poor appetite, early satiety. Folate/B12 normalizedwith enteral repletion. - Nutrition c/s, recs appreciated - s/p HD thiamine, thiamine 100mg PO daily - folic acid 1mg daily, MVI daily - s/p pyridoxine B6 100mg PO daily #Cavitary lung lesions, managing Patient with symptoms including cough and [place] admission CT CAP11/26/23 with cavitary lung lesions and associated lymphadenopathy, not seen on CT ~1 month ago; patient also with liver/spleen and adnexal masses as below. No clear risk factors for immunosuppresionsave acute severe malnutrition. Comprehensive work-up to date negative for malignancy, vasculitis and without clear infectious pathogen, though suspect some of this work-up may be sterilized iso abx as above. - Pulm c/s, recs/intervention (BAL 11/27) appreciated - Abx as above #Hypocalcemia, resolving Intermittent throughout admission. Possibly related to poor dietary intake. 11/29 25OH-VitD 39 from19 10/26. #Liver/spleen iron deposition: 11/12 MRI, etiology unclear. 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 Non-FDG avid. Business Office Representative/Onc c/s as above. #HTN: hold losartan 25mg daily #T2DM: A1c 5.7%. HDSSI Code Status: Full Code Disposition: pending clinical course Best contact: Primary Emergency Contact: JEAN CLAUDE RUSSO Diet: Adult Diet Regular NPO Diet VTE Prophylaxis: enoxaparin 40mg SQ qhs PT: PT Recommendation/Plan: Home with family, Home with intermittent assist, No further PT indicated OT:OT Recommendation: Home with family, Home with intermittent assist, No further OT indicated Jhonny Kirby MD Resident Physician Cosigned by Parmjit Meehan MD at 12/23/2023 2:33 PM STUDIO ARTIST IO ARTIST IO ARTIST Associated attestation - Parmjit Meehan MD - 12/23/2023 2:33 PM STUDIO ARTIST I have seen and examined the patient on 12/23/23. I agree with the findings and plan of care as documented in the resident's/fellow's note. Today, I am treating the patient for colonic perforation and abscess which is in severe exacerbation, progression, or experiencing treatment side effects as evidenced by need for IV abx and surgery, as described in the note. Reviewed records from the following unique sources (external institutions or providers from different services): CRS. Independently interpreted CBC which shows anemia. Discussed management of abscess with residents. The patient is being intensively monitored for drug toxicity from Cipro/BECK by checking CBC, CMP. . * Vicki King MD - 12/22/2023 10:27 AM CST Images from the original note were not included. [facility] Daily Progress Note Colorectal Surgery Surgery PATIENT NAME: Darius Russo : 1960 ADMIT DATE: 11/25/2023 6:29 PM LOS: 27 Subjective CHIEF COMPLAINT: Physical deconditioning INTERVAL HISTORY: -NAEO, AFVSS -Continues to have adequate PO intake and ambulate multiple times daily Objective MEDICATIONS: Scheduled: ciprofloxacin, 500 mg, oral, BID - special enoxaparin, 40 mg, subcutaneous, Daily-2100 folic acid, 1 mg, oral, Daily [Held by Provider] losartan, 25 mg, oral, Daily metroNIDAZOLE, 500 mg, oral, BID multivitamin therapeutic, 1 tablet, oral, Daily pantoprazole DR, 40 mg, oral, Daily thiamine, 100 mg, oral, Daily Infusions: PRN: acetaminophen benzonatate ondansetron VITALS: 24hr Min/Max: Temp Min: 36.9 ??C (98.4 ??F) Max: 37 ??C (98.6 ??F) Pulse Min: 96 Max: 98 BP Min: 112/58 Max: 127/61 Resp Min: 16 Max: 16 SpO2 Min: 98 % Max: 99 % Most Recent: Vitals: 12/20/23203412/21/23 0535 12/21/235 12/22/23 0740 BP: 125/62 135/71 112/58 127/61 BP Location: Left arm Left arm Patient Position: Lying;HOB 30 degrees Lying;HOB 30 degrees Pulse: 96 90 98 96 Resp: 16 14 16 16 Temp: 37.1 ??C (98.8 ??F) 36.8 ??C (98.2 ??F) 36.9 ??C (98.4 ??F) 37 ??C (98.6 ??F) TempSrc: Oral Oral SpO2: 99% 98% 99% 98% Weight: Height: Intake/Output Summary (Last 24 hours) at 12/22/2023 1027 Last data filed at 12/21/20235 Gross per 24 hour Intake 443 ml Output -- Net 443 ml PHYSICAL EXAM: General: Well nourished, comfortable Psych: alert and calm HEENT: normocephalic/atraumatic, anicteric Pulm: Normal work of breathing Cardiac: Regular rate and rhythm GI: abd soft, nondistended, mild tenderness to palpation LLQ without rebound or guarding Neuro: ambulatory, non-focal Skin: warm and dry Musculoskeletal: no deformities LAB/ RADIOLOGY/ DIAGNOSTIC REVIEW: Chem/LFT Lab History Latest Ref Rng & Units 12/11/2023 12/13/2023 21:51 12/16/2023 22:51 12/19/2023 22:29 Labs-Chem/LFT Sodium 135 - 145 mmol/L 140 137 135 135 Creatinine 0.60 - 1.10 mg/dL 0.80 0.78 0.76 0.73 Bilirubin, total 0.1 - 1.2 mg/dL <0.2 AST 10 - 45 Units/L 25 ALT 7 - 45 Units/L 11 Alk phos 40 - 130 Units/L 83 CrCl- Actual Body Weight (Cockcroft-Gault) 65.4 67.1 65.3 67.3 Details More values are hidden. Newest values shown. Go to activity for more data. Hematology Lab History Latest Ref Rng & Units 12/13/2023 21:51 12/16/2023 22:51 12/17/2023 20:27 12/19/2023 22:29 Labs - Hematology WBC 3.8 - 9.9 K/cumm 8.7 10.9 11.0 10.4 Total Hb, POC 11.9 - 15.5 g/dL 7.7 7.7 8.1 7.7 Hct 35.6 - 45.5 % 25.4 25.8 27.4 25.3 Plt 150 - 400 K/cumm 354 347 334 337 Neutrophil abs 1.5 - 6.5 K/cumm 5.2 7.1 8.0 6.7 Lymphocytes, abs 0.8 - 3.3 K/cumm 2.4 2.3 1.7 2.2 I have reviewed the laboratory results. ASSESSMENT/ PLAN: 63 y.o. female with hx of DM, HTN, and recently diagnosed IBD (originally thought to be UC but is now more likely to be Crohn's) who has persistent colitis of her sigmoid colon with microperforation,multiple abscesses of the liver and spleen, and now new left upper lobe lung lesions, some of whichare cavitary. She is not a candidate for anti-TNF treatment in the setting of her lung lesions until etiology is determined. Pt also has a new pelvic mass that requires resection. Discussed with patient indications, benefits, and risks of the surgery. All of patients questions were answered. -Plan for combined resection with billposting supervisor on 12/23 -IPAP Consult -Preoperative labs including T&S and coags -NPO tomorrow MN -Continue to optimize nutrition with adequate caloric and protein intake -OOB, encourage ambulation -Continue antibiotics Vicki King MD 12/22/2023 Cosigned by Yo Perez MD at 12/23/2023 11:52 AM STUDIO ARTIST IO ARTIST IO ARTIST IO ARTIST Associated attestation - Yo Perez MD - 12/23/2023 11:52 AM STUDIO ARTIST I have seen and examined the patient on 12/22/2023. I agree with the findings and plan of care as documented in the resident's/fellow's note.. * Jhonny Kirby MD - 12/22/2023 7:43 AM CST Medicine Daily Progress Note Patient: Darius Russo : 1960 (63 y.o.) Date of Admission: 11/25/2023 Date of Service: 12/22/23 SUBJECTIVE Interval Events: - NAEO. Doing well this AM. No complaints. Labs q72. INR, pre-procedure labs tonight Await surgery 12/23. OBJECTIVE Vitals Most Recent: Vitals: 12/21/232124 BP: 112/58 Pulse: 98 Resp: 16 Temp: 36.9 ??C (98.4 ??F) SpO2: 99% 24 Hour Min/Max: Temp Min: 36.9 ??C (98.4 ??F) Max: 36.9 ??C (98.4 ??F) Pulse Min: 98 Max: 98 BP Min: 112/58 Max: 112/58 Resp Min: 16 Max: 16 SpO2 Min: 99 % Max: 99 % Intake/Output Intake/Output Summary (Last 24 hours) at 12/22/2023 0743 Last data filed at 12/21/20232124 Gross per 24 hour Intake 443 ml Output -- Net 443 ml Current Medications Scheduled Meds: Scheduled Medications Medication Dose Route Frequency ??? ciprofloxacin (CIPRO) tablet 500 mg 500 mg oral BID - special ??? enoxaparin (LOVENOX) syringe 40 mg 40 mg subcutaneous Daily-2099 ??? folic acid (FOLVITE) tablet 1 mg 1 mg oral Daily ??? [Held by Provider] losartan (COZAAR) tablet 25 mg 25 mg oral Daily ??? metroNIDAZOLE (FLAGYL) tablet 500 mg 500 mg oral BID ??? multivitamin with folic acid 400 mcg tablet 1 tablet 1 tablet oral Daily ??? pantoprazole DR (PROTONIX) extended release tablet 40 mg 40 mg oral Daily ??? thiamine (VITAMIN B1) tablet 100 mg 100 mg oral Daily Continuous Meds: Current Facility-Administered Medications Medication Dose Route Frequency Last Admin PRN Meds: PRN Medications Medication Dose Route Frequency Last Admin ??? acetaminophen (TYLENOL) tablet 1,000 mg 1,000 mg oral Q6H PRN 1,000 mg at 12/21/23 1749 ??? benzonatate (TESSALON) capsule 100 mg 100 mg oral TID PRN 100 mg at 12/21/23 1750 ??? ondansetron (ZOFRAN) injection 4 mg 4 mg intravenous Q4H PRN 4 mg at 12/09/23 1222 Physical Exam General: NAD, well developed, well nourished HEENT: NCAT. PERRL, EOMI, anicteric. MMM. Hearing intact to interview. Neck ROM intact to interview. Supple. Lungs: Unlabored on RA. No dyspnea with conversation. Cardiovascular: RRR. GI: Soft, mildly TTP LLQ w/o rebound or guarding Skin: No concerning rashes, lesions, or bruises on exposed skin. Extremities: No edema or cyanosis in BLE. WWP. Neurologic: Alert and oriented to interview, person, place, time, setting, and recent and remote personal history. Spontaneously moves all extremities, face symmetric to activation. No reported or observed focal motor or sensory neurologic deficits to gross exam. Psychiatric: Neutral to good mood with mood-syntonic affect. Does not appear to be responding to internal stimuli. Laboratory Results Lab Results Component Value Date GLUCOSE 185 12/19/2023 CALCIUM 8.6 12/19/2023 SODIUM 135 12/19/2023 POTASSIUM 4.6 12/19/2023 CO2 26 12/19/2023 CHLORIDE 101 12/19/2023 BUNSER 22 12/19/2023 CREATININE 0.73 12/19/2023 Lab Results Component Value Date WBC 10.4 (H) 12/19/2023 HGB 7.7 (L) 12/19/2023 HCT 25.3 (L) 12/19/2023 MCV 86.3 12/19/2023 LABPLAT 337 12/19/2023 Imaging Results XR Abdomen Ap 1 Vw Narrative: EXAMINATION: Abdomen, one view. HISTORY: 63-year-old female with abdominal distention COMPARISON: Abdominal radiograph 12/04/2023 Impression: A single view of the abdomen is submitted for evaluation. Partially imaged left pleural effusion appears similar in size to previous study. Cholecystectomy clips present. Normal bowel gas pattern. Dictated by: Yareli York MD The radiology attending physician has personally reviewed this study, and had reviewed and/or edited this written report and agrees with it. Electronically signed by: Shin King M.D. ASSESSMENT & PLAN Darius Russo is a 63 y.o. woman with relevant PMH of IBD (2022 UC, now c/f Crohn's), adnexal mass, HTN, T2DM directly admitted for expedited therapy for IBD iso progressive weight loss, found to have disseminated infectious process thought to be 2/2 bacterial translocation from contained colonicperforation. #IBD c/b multifocal infection (colon, lungs, spleen, liver), Managing Patient was diagnosed with ulcerative colitis in 2022, since which time she has been prescribed rectal mesalamine. She has had recurrent admissions for sigmoid diverticulitis which have been managed medically; most recently, patient was started on a 4wk course of ciprofloxacin/metronidazole (11/05). 11/12 colonoscopy with cryptitis and inflammation now c/f colonic Crohn's, MRI dated same with sigmoid diverticulitis, contained perforation, rectal/sigmoid inflammation. Patient's symptoms include daily diarrhea (now improving) and profound weight loss as detailed elsewhere. She was admitted for remicade vs operative management, course c/b likely infectious process (lungs, liver, spleen) preventi ng remicade initiation. Course c/b recurrent SVT, culture neg sepsis 12/03, 12/08 suspected 2/2 transient bacterial translocation and preventing discharge prior to surgical intervention. - GI c/s, recs appreciated: colectomy - ID c/s, recs appreciated: abx as below - CRS, Business Office Representative/Onc c/s, recs appreciated: Await colectomy + LIBRA/BSO tentatively scheduled 12/23. Working on moving up date pending CRS availability - Continue ciprofloxacin 500mg PO BID, metronidazole 500mg PO BID (11/05-12/03;12/05-12/08; 12/09-); s/p vanc/zosyn (12/03-12/05), erta (12/08-12/09) #Recurrent SVT, No recent episodes Patient with recurrent episodes of symptomatic SVT after BM c/b type 2 NC 12/03, suspect 2/2 transient gut translocation as above. K>4, Mg>2 #FTT/severe malnutrition, improving #Acute weight loss 65lb weight loss over 4mo; suspect related to multifocal process affecting lung/liver/spleen or mass effect from her adnexal mass. Patient endorses poor appetite, early satiety. Folate/B12 normalizedwith enteral repletion. - Nutrition c/s, recs appreciated - s/p HD thiamine, thiamine 100mg PO daily - folic acid 1mg daily, MVI daily - s/p pyridoxine B6 100mg PO daily #Cavitary lung lesions, managing Patient with symptoms including cough [place] admission CT CAP11/26/23 with cavitary lung lesions and associated lymphadenopathy, not seen on CT ~1 month ago; patient also with liver/spleen and adnexal masses as below. No clear risk factors for immunosuppresionsave acute severe malnutrition. Comprehensive work-up to date negative for malignancy, vasculitis and without clear infectious pathogen, though suspect some of this work-up may be sterilized iso abx as above. - Pulm c/s, recs/intervention (BAL 11/27) appreciated - Abx as above #Hypocalcemia, resolving Intermittent throughout admission. Possibly related to poor dietary intake. 11/29 25OH-VitD 39 from19 10/26. #Liver/spleen iron deposition: 11/12 MRI, etiology unclear. 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 Non-FDG avid. Business Office Representative/Onc c/s as above. #HTN: hold losartan 25mg daily #T2DM: A1c 5.7%. HDSSI Code Status: Full Code Disposition: pending clinical course Best contact: Primary Emergency Contact: JEAN CLAUDE RUSSO Diet: Adult Diet Regular VTE Prophylaxis: enoxaparin 40mg SQ qhs PT: PT Recommendation/Plan: Home with family, Home with intermittent assist, No further PT indicated OT:OT Recommendation: Home with family, Home with intermittent assist, No further OT indicated Jhonny Kirby MD Resident Physician Cosigned by Parmjit Meehan MD at 12/22/2023 11:09 AM STUDIO ARTIST IO ARTIST IO ARTIST Associated attestation - Parmjit Meehan MD - 12/22/2023 11:09 AM STUDIO ARTIST I have seen and examined the patient on 12/22/23. I agree with the findings and plan of care as documented in the resident's/fellow's note. Today, I am treating the patient for colonic perforation and abscess which is in severe exacerbation, progression, or experiencing treatment side effects as evidenced by need for IV abx and surgery, as described in the note. Reviewed records from the following unique sources (external institutions or providers from different services): CRS. Independently interpreted CBC which shows anemia. Discussed management of abscess with residents. The patient is being intensively monitored for drug toxicity from Cipro/BECK by checking CBC, CMP. . * Eleonora Killian MD - 12/21/2023 2:19 PM CST Images from the original note were not included. [facility] Daily Progress Note Colorectal Surgery Surgery PATIENT NAME: Darius Russo : 1960 ADMIT DATE: 11/25/2023 6:29 PM LOS: 26 Subjective CHIEF COMPLAINT: Physical deconditioning INTERVAL HISTORY: Ambulated multiple times yesterday Drank 3 ensures Left sided abdominal pain unchanged Objective MEDICATIONS: Scheduled: ciprofloxacin, 500 mg, oral, BID - special enoxaparin, 40 mg, subcutaneous, Daily-2100 folic acid, 1 mg, oral, Daily [Held by Provider] losartan, 25 mg, oral, Daily metroNIDAZOLE, 500 mg, oral, BID multivitamin therapeutic, 1 tablet, oral, Daily pantoprazole DR, 40 mg, oral, Daily thiamine, 100 mg, oral, Daily Infusions: PRN: acetaminophen benzonatate ondansetron VITALS: 24hr Min/Max: Temp Min: 36.8 ??C (98.2 ??F) Max: 37.2 ??C (99 ??F) Pulse Min: 90 Max: 104 BP Min: 116/63 Max: 135/71 Resp Min: 14 Max: 18 SpO2 Min: 98 % Max: 99 % Most Recent: Vitals: 12/20/23 0730 12/20/23 1545 12/20/23 2035 12/21/23 0535 BP: 127/70 116/63 125/62 135/71 BP Location: Right arm Left arm Patient Position: HOB 30 degrees Lying Pulse: 96 104 96 90 Resp: 18 18 16 14 Temp: 36.9 ??C (98.4 ??F) 37.2 ??C (99 ??F) 37.1 ??C (98.8 ??F) 36.8 ??C (98.2 ??F) TempSrc: Oral Oral SpO2: 98% 98% 99% 98% Weight: Height: No intake or output data in the 24 hours ending 12/21/23 1419 PHYSICAL EXAM: General: Well nourished, comfortable Psych: alert and calm HEENT: normocephalic/atraumatic, anicteric Pulm: Normal work of breathing Cardiac: Regular rate and rhythm GI: abd soft, nondistended, mild tenderness to palpation LLQ without rebound or guarding Neuro: ambulatory, non-focal Skin: warm and dry Musculoskeletal: no deformities LAB/ RADIOLOGY/ DIAGNOSTIC REVIEW: Chem/LFT Lab History Latest Ref Rng & Units 12/11/2023 12/13/2023 21:51 12/16/2023 22:51 12/19/2023 22:29 Labs-Chem/LFT Sodium 135 - 145 mmol/L 140 137 135 135 Creatinine 0.60 - 1.10 mg/dL 0.80 0.78 0.76 0.73 Bilirubin, total 0.1 - 1.2 mg/dL <0.2 AST 10 - 45 Units/L 25 ALT 7 - 45 Units/L 11 Alk phos 40 - 130 Units/L 83 CrCl- Actual Body Weight (Cockcroft-Gault) 65.4 67.1 65.3 67.3 Details More values are hidden. Newest values shown. Go to activity for more data. Hematology Lab History Latest Ref Rng & Units 12/13/2023 21:51 12/16/2023 22:51 12/17/2023 20:27 12/19/2023 22:29 Labs - Hematology WBC 3.8 - 9.9 K/cumm 8.7 10.9 11.0 10.4 Total Hb, POC 11.9 - 15.5 g/dL 7.7 7.7 8.1 7.7 Hct 35.6 - 45.5 % 25.4 25.8 27.4 25.3 Plt 150 - 400 K/cumm 354 347 334 337 Neutrophil abs 1.5 - 6.5 K/cumm 5.2 7.1 8.0 6.7 Lymphocytes, abs 0.8 - 3.3 K/cumm 2.4 2.3 1.7 2.2 I have reviewed the laboratory results. ASSESSMENT/ PLAN: 63 y.o. female with hx of DM, HTN, and recently diagnosed IBD (originally thought to be UC but is now more likely to be Crohn's) who has persistent colitis of her sigmoid colon with microperforation,multiple abscesses of the liver and spleen, and now new left upper lobe lung lesions, some of whichare cavitary. She is not a candidate for anti-TNF treatment in the setting of her lung lesions until etiology is determined. Pt also has a new pelvic mass that requires resection. -Plan for combined resection with billposting supervisor on 12/23 -Continue to optimize nutrition with adequate caloric and protein intake -OOB, encourage ambulation -Continue antibiotics Eleonora Mendez MD 12/21/2023 Cosigned by Janel Ugarte MD at 12/22/2023 6:01 AM STUDIO ARTIST IO ARTIST IO ARTIST * Jhonny Kirby MD - 12/21/2023 12:18 PM CST Medicine Daily Progress Note Patient: Darius Russo : 1960 (63 y.o.) Date of Admission: 11/25/2023 Date of Service: 12/21/23 SUBJECTIVE Interval Events: - NAEO. Doing well this AM. No complaints. Labs q72. Await surgery 12/23. OBJECTIVE Vitals Most Recent: Vitals: 12/21/23 0535 BP: 135/71 Pulse: 90 Resp: 14 Temp: 36.8 ??C (98.2 ??F) SpO2: 98% 24 Hour Min/Max: Temp Min: 36.8 ??C (98.2 ??F) Max: 37.2 ??C (99 ??F) Pulse Min: 90 Max: 104 BP Min: 116/63 Max: 135/71 Resp Min: 14 Max: 18 SpO2 Min: 98 % Max: 99 % Intake/Output No intake or output data in the 24 hours ending 12/21/23 1218 Current Medications Scheduled Meds: Scheduled Medications Medication Dose Route Frequency ??? ciprofloxacin (CIPRO) tablet 500 mg 500 mg oral BID - special ??? enoxaparin (LOVENOX) syringe 40 mg 40 mg subcutaneous Daily-2100 ??? folic acid (FOLVITE) tablet 1 mg 1 mg oral Daily ??? [Held by Provider] losartan (COZAAR) tablet 25 mg 25 mg oral Daily ??? metroNIDAZOLE (FLAGYL) tablet 500 mg 500 mg oral BID ??? multivitamin with folic acid 400 mcg tablet 1 tablet 1 tablet oral Daily ??? pantoprazole DR (PROTONIX) extended release tablet 40 mg 40 mg oral Daily ??? thiamine (VITAMIN B1) tablet 100 mg 100 mg oral Daily Continuous Meds: Current Facility-Administered Medications Medication Dose Route Frequency Last Admin PRN Meds: PRN Medications Medication Dose Route Frequency Last Admin ??? acetaminophen (TYLENOL) tablet 1,000 mg 1,000 mg oral Q6H PRN 1,000 mg at 12/21/23 0533 ??? benzonatate (TESSALON) capsule 100 mg 100 mg oral TID PRN 100 mg at 12/20/232032 ??? ondansetron (ZOFRAN) injection 4 mg 4 mg intravenous Q4H PRN 4 mg at 12/09/23 1222 Physical Exam General: NAD, well developed, well nourished HEENT: NCAT. PERRL, EOMI, anicteric. MMM. Hearing intact to interview. Neck ROM intact to interview. Supple. Lungs: Unlabored on RA. No dyspnea with conversation. Cardiovascular: RRR. GI: Soft, mildly TTP LLQ w/o rebound or guarding Skin: No concerning rashes, lesions, or bruises on exposed skin. Extremities: No edema or cyanosis in BLE. WWP. Neurologic: Alert and oriented to interview, person, place, time, setting, and recent and remote personal history. Spontaneously moves all extremities, face symmetric to activation. No reported or observed focal motor or sensory neurologic deficits to gross exam. Psychiatric: Neutral to good mood with mood-syntonic affect. Does not appear to be responding to internal stimuli. Laboratory Results Lab Results Component Value Date GLUCOSE 185 12/19/2023 CALCIUM 8.6 12/19/2023 SODIUM 135 12/19/2023 POTASSIUM 4.6 12/19/2023 CO2 26 12/19/2023 CHLORIDE 101 12/19/2023 BUNSER 22 12/19/2023 CREATININE 0.73 12/19/2023 Lab Results Component Value Date WBC 10.4 (H) 12/19/2023 HGB 7.7 (L) 12/19/2023 HCT 25.3 (L) 12/19/2023 MCV 86.3 12/19/2023 LABPLAT 337 12/19/2023 Imaging Results XR Abdomen Ap 1 Vw Narrative: EXAMINATION: Abdomen, one view. HISTORY: 63-year-old female with abdominal distention COMPARISON: Abdominal radiograph 12/04/2023 Impression: A single view of the abdomen is submitted for evaluation. Partially imaged left pleural effusion appears similar in size to previous study. Cholecystectomy clips present. Normal bowel gas pattern. Dictated by: Yareli York MD The radiology attending physician has personally reviewed this study, and had reviewed and/or edited this written report and agrees with it. Electronically signed by: Shin King M.D. ASSESSMENT & PLAN Darius Russo is a 63 y.o. woman with relevant PMH of IBD (2022 UC, now c/f Crohn's), adnexal mass, HTN, T2DM directly admitted for expedited therapy for IBD iso progressive weight loss, found to have disseminated infectious process thought to be 2/2 bacterial translocation from contained colonicperforation. #IBD c/b multifocal infection (colon, lungs, spleen, liver), Managing Patient was diagnosed with ulcerative colitis in 2022, since which time she has been prescribed rectal mesalamine. She has had recurrent admissions for sigmoid diverticulitis which have been managed medically; most recently, patient was started on a 4wk course of ciprofloxacin/metronidazole (11/05). 11/12 colonoscopy with cryptitis and inflammation now c/f colonic Crohn's, MRI dated same with sigmoid diverticulitis, contained perforation, rectal/sigmoid inflammation. Patient's symptoms include daily diarrhea (now improving) and profound weight loss as detailed elsewhere. She was admitted for remicade vs operative management, course c/b likely infectious process (lungs, liver, spleen) preventi ng remicade initiation. Course c/b recurrent SVT, culture neg sepsis 12/03, 12/08 suspected 2/2 transient bacterial translocation and preventing discharge prior to surgical intervention. - GI c/s, recs appreciated: colectomy - ID c/s, recs appreciated: abx as below - CRS, Business Office Representative/Onc c/s, recs appreciated: Await colectomy + LIBRA/BSO tentatively scheduled 12/23. Working on moving up date pending CRS availability - Continue ciprofloxacin 500mg PO BID, metronidazole 500mg PO BID (11/05-12/03;12/05-12/08; 12/09-); s/p vanc/zosyn (12/03-12/05), erta (12/08-12/09) #Recurrent SVT, No recent episodes Patient with recurrent episodes of symptomatic SVT after BM c/b type 2 NC 12/03, suspect 2/2 transient gut translocation as above. K>4, Mg>2 #FTT/severe malnutrition, improving #Acute weight loss 65lb weight loss over 4mo; suspect related to multifocal process affecting lung/liver/spleen or mass effect from her adnexal mass. Patient endorses poor appetite, early satiety. Folate/B12 normalizedwith enteral repletion. - Nutrition c/s, recs appreciated - s/p HD thiamine, thiamine 100mg PO daily - folic acid 1mg daily, MVI daily - s/p pyridoxine B6 100mg PO daily #Cavitary lung lesions, managing Patient with symptoms including cough and [place]; admission CT CAP11/26/23 with cavitary lung lesions and associated lymphadenopathy, not seen on CT ~1 month ago; patient also with liver/spleen and adnexal masses as below. No clear risk factors for immunosuppresionsave acute severe malnutrition. Comprehensive work-up to date negative for malignancy, vasculitis and without clear infectious pathogen, though suspect some of this work-up may be sterilized iso abx as above. - Pulm c/s, recs/intervention (BAL 11/27) appreciated - Abx as above #Hypocalcemia, resolving Intermittent throughout admission. Possibly related to poor dietary intake. 11/29 25OH-VitD 39 from19 10/26. #Liver/spleen iron deposition: 11/12 MRI, etiology unclear. 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 Non-FDG avid. Business Office Representative/Onc c/s as above. #HTN: hold losartan 25mg daily #T2DM: A1c 5.7%. HDSSI Code Status: Full Code Disposition: pending clinical course Best contact: Primary Emergency Contact: JEAN CLAUDE RUSSO Diet: Adult Diet Regular VTE Prophylaxis: enoxaparin 40mg SQ qhs PT: PT Recommendation/Plan: Home with family, Home with intermittent assist, No further PT indicated OT:OT Recommendation: Home with family, Home with intermittent assist, No further OT indicated Jhonny Kirby MD Resident Physician Cosigned by Parmjit Meehan MD at 12/22/2023 7:23 AM STUDIO ARTIST IO ARTIST IO ARTIST Associated attestation - Parmjit Meehan MD - 12/22/2023 7:23 AM STUDIO ARTIST I have seen and examined the patient on 12/21/23. I agree with the findings and plan of care as documented in the resident's/fellow's note. Today, I am treating the patient for colonic perforation and abscess which is in severe exacerbation, progression, or experiencing treatment side effects as evidenced by need for IV abx and surgery, as described in the note. Reviewed records from the following unique sources (external institutions or providers from different services): CRS. Independently interpreted CBC which shows anemia. Discussed management of abscess with residents. The patient is being intensively monitored for drug toxicity from Cipro/BECK by checking CBC, CMP. . * María Graham MD PhD - 12/20/2023 1:54 PM CDT Medicine Daily Progress Note Patient: Darius Russo : 1960 (63 y.o.) Date of Admission: 11/25/2023 Date of Service: 12/20/23 SUBJECTIVE Interval Events: - NAEO. Doing well this AM. Labs stable, supplementing Mg to keep Mg>2. Await surgery 12/23. OBJECTIVE Vitals Most Recent: Vitals: 12/20/23 0730 BP: 127/70 Pulse: 96 Resp: 18 Temp: 36.9 ??C (98.4 ??F) SpO2: 98% 24 Hour Min/Max: Temp Min: 36.8 ??C (98.2 ??F) Max: 36.9 ??C (98.4 ??F) Pulse Min: 92 Max: 96 BP Min: 110/62 Max: 127/70 Resp Min: 18 Max: 18 SpO2 Min: 98 % Max: 99 % Intake/Output No intake or output data in the 24 hours ending 12/20/23 1354 Current Medications Scheduled Meds: Scheduled Medications Medication Dose Route Frequency ??? ciprofloxacin (CIPRO) tablet 500 mg 500 mg oral BID - special ??? enoxaparin (LOVENOX) syringe 40 mg 40 mg subcutaneous Daily-2100 ??? folic acid (FOLVITE) tablet 1 mg 1 mg oral Daily ??? [Held by Provider] losartan (COZAAR) tablet 25 mg 25 mg oral Daily ??? metroNIDAZOLE (FLAGYL) tablet 500 mg 500 mg oral BID ??? multivitamin with folic acid 400 mcg tablet 1 tablet 1 tablet oral Daily ??? pantoprazole DR (PROTONIX) extended release tablet 40 mg 40 mg oral Daily ??? thiamine (VITAMIN B1) tablet 100 mg 100 mg oral Daily Continuous Meds: Current Facility-Administered Medications Medication Dose Route Frequency Last Admin PRN Meds: PRN Medications Medication Dose Route Frequency Last Admin ??? acetaminophen (TYLENOL) tablet 1,000 mg 1,000 mg oral Q6H PRN 1,000 mg at 12/19/23 1737 ??? benzonatate (TESSALON) capsule 100 mg 100 mg oral TID PRN 100 mg at 12/18/23 1816 ??? ondansetron (ZOFRAN) injection 4 mg 4 mg intravenous Q4H PRN 4 mg at 12/09/23 1222 Physical Exam General: NAD, well developed, well nourished HEENT: NCAT. PERRL, EOMI, anicteric. MMM. Hearing intact to interview. Neck ROM intact to interview. Supple. Lungs: Unlabored on RA. No dyspnea with conversation. Cardiovascular: RRR. GI: Soft, mildly TTP LLQ w/o rebound or guarding Skin: No concerning rashes, lesions, or bruises on exposed skin. Extremities: No edema or cyanosis in BLE. WWP. Neurologic: Alert and oriented to interview, person, place, time, setting, and recent and remote personal history. Spontaneously moves all extremities, face symmetric to activation. No reported or observed focal motor or sensory neurologic deficits to gross exam. Psychiatric: Neutral to good mood with mood-syntonic affect. Does not appear to be responding to internal stimuli. Laboratory Results Lab Results Component Value Date GLUCOSE 185 12/19/2023 CALCIUM 8.6 12/19/2023 SODIUM 135 12/19/2023 POTASSIUM 4.6 12/19/2023 CO2 26 12/19/2023 CHLORIDE 101 12/19/2023 BUNSER 22 12/19/2023 CREATININE 0.73 12/19/2023 Lab Results Component Value Date WBC 10.4 (H) 12/19/2023 HGB 7.7 (L) 12/19/2023 HCT 25.3 (L) 12/19/2023 MCV 86.3 12/19/2023 LABPLAT 337 12/19/2023 Imaging Results XR Abdomen Ap 1 Vw Narrative: EXAMINATION: Abdomen, one view. HISTORY: 63-year-old female with abdominal distention COMPARISON: Abdominal radiograph 12/04/2023 Impression: A single view of the abdomen is submitted for evaluation. Partially imaged left pleural effusion appears similar in size to previous study. Cholecystectomy clips present. Normal bowel gas pattern. Dictated by: Yareli York MD The radiology attending physician has personally reviewed this study, and had reviewed and/or edited this written report and agrees with it. Electronically signed by: Shin King M.D. ASSESSMENT & PLAN Darius Russo is a 63 y.o. woman with relevant PMH of IBD (2022 UC, now c/f Crohn's), adnexal mass, HTN, T2DM directly admitted for expedited therapy for IBD iso progressive weight loss, found to have disseminated infectious process thought to be 2/2 bacterial translocation from contained colonicperforation. #IBD c/b multifocal infection (colon, lungs, spleen, liver), Managing Patient was diagnosed with ulcerative colitis in 2022, since which time she has been prescribed rectal mesalamine. She has had recurrent admissions for sigmoid diverticulitis which have been managed medically; most recently, patient was started on a 4wk course of ciprofloxacin/metronidazole (11/05). 11/12 colonoscopy with cryptitis and inflammation now c/f colonic Crohn's, MRI dated same with sigmoid diverticulitis, contained perforation, rectal/sigmoid inflammation. Patient's symptoms include daily diarrhea (now improving) and profound weight loss as detailed elsewhere. She was admitted for remicade vs operative management, course c/b likely infectious process (lungs, liver, spleen) preventi ng remicade initiation. Course c/b recurrent SVT, culture neg sepsis 12/03, 12/08 suspected 2/2 transient bacterial translocation and preventing discharge prior to surgical intervention. - GI c/s, recs appreciated: colectomy - ID c/s, recs appreciated: abx as below - CRS, Business Office Representative/Onc c/s, recs appreciated: Await colectomy + LIBRA/BSO tentatively scheduled 12/23. Working on moving up date pending CRS availability - Continue ciprofloxacin 500mg PO BID, metronidazole 500mg PO BID (11/05-12/03;12/05-12/08; 12/09-); s/p vanc/zosyn (12/03-12/05), erta (12/08-12/09) #Recurrent SVT, No recent episodes Patient with recurrent episodes of symptomatic SVT after BM c/b type 2 NC 12/03, suspect 2/2 transient gut translocation as above. K>4, Mg>2 #FTT/severe malnutrition, improving #Acute weight loss 65lb weight loss over 4mo; suspect related to multifocal process affecting lung/liver/spleen or mass effect from her adnexal mass. Patient endorses poor appetite, early satiety. Folate/B12 normalizedwith enteral repletion. - Nutrition c/s, recs appreciated - s/p HD thiamine, thiamine 100mg PO daily - folic acid 1mg daily, MVI daily - s/p pyridoxine B6 100mg PO daily #Cavitary lung lesions, managing Patient with symptoms including cough and [place]; admission CT CAP11/26/23 with cavitary lung lesions and associated lymphadenopathy, not seen on CT ~1 month ago; patient also with liver/spleen and adnexal masses as below. No clear risk factors for immunosuppresionsave acute severe malnutrition. Comprehensive work-up to date negative for malignancy, vasculitis and without clear infectious pathogen, though suspect some of this work-up may be sterilized iso abx as above. - Pulm c/s, recs/intervention (BAL 11/27) appreciated - Abx as above #Hypocalcemia, resolving Intermittent throughout admission. Possibly related to poor dietary intake. 11/29 25OH-VitD 39 from19 10/26. #Liver/spleen iron deposition: 11/12 MRI, etiology unclear. 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 Non-FDG avid. Business Office Representative/Onc c/s as above. #HTN: hold losartan 25mg daily #T2DM: A1c 5.7%. HDSSI Code Status: Full Code Disposition: pending clinical course Best contact: Primary Emergency Contact: JEAN CLAUDE RUSSO Diet: Adult Diet Regular VTE Prophylaxis: enoxaparin 40mg SQ qhs PT: PT Recommendation/Plan: Home with family, Home with intermittent assist, No further PT indicated OT:OT Recommendation: Home with family, Home with intermittent assist, No further OT indicated María Graham MD PhD Resident Physician Cosigned by Parmjit Meehan MD at 12/21/2023 7:03 AM STUDIO ARTIST IO ARTIST Associated attestation - Parmjit Meehan MD - 12/21/2023 7:03 AM STUDIO ARTIST I have seen and examined the patient on 12/20/23. I agree with the findings and plan of care as documented in the resident's/fellow's note. Today, I am treating the patient for colonic perforation and abscess which is in severe exacerbation, progression, or experiencing treatment side effects as evidenced by need for IV abx and surgery, as described in the note. Reviewed records from the following unique sources (external institutions or providers from different services): CRS. Independently interpreted CBC which shows anemia. Discussed management of abscess with residents. The patient is being intensively monitored for drug toxicity from Cipro/BECK by checking CBC, CMP. . * Eleonora Killian MD - 12/20/2023 12:07 PM CDT Images from the original note were not included. [facility] Daily Progress Note Colorectal Surgery Surgery PATIENT NAME: Darius Russo : 1960 ADMIT DATE: 11/25/2023 6:29 PM LOS: 25 Subjective CHIEF COMPLAINT: Physical deconditioning INTERVAL HISTORY: Patient feeling well Normal vitals yesterday Occasional left sided pain Objective MEDICATIONS: Scheduled: ciprofloxacin, 500 mg, oral, BID - special enoxaparin, 40 mg, subcutaneous, Daily-2099 folic acid, 1 mg, oral, Daily [Held by Provider] losartan, 25 mg, oral, Daily metroNIDAZOLE, 500 mg, oral, BID multivitamin therapeutic, 1 tablet, oral, Daily pantoprazole DR, 40 mg, oral, Daily thiamine, 100 mg, oral, Daily Infusions: PRN: acetaminophen benzonatate ondansetron VITALS: 24hr Min/Max: Temp Min: 36.8 ??C (98.2 ??F) Max: 36.9 ??C (98.4 ??F) Pulse Min: 92 Max: 96 BP Min: 110/62 Max: 127/70 Resp Min: 18 Max: 18 SpO2 Min: 98 % Max: 99 % Most Recent: Vitals: 12/19/23 1500 12/19/23 2100 12/19/23 2108 12/20/23 0730 BP: 124/60 110/62 127/70 BP Location: Left arm Right arm Right arm Patient Position: HOB 30 degrees Lying HOB 30 degrees Pulse: 94 92 92 96 Resp: 18 18 18 Temp: 36.8 ??C (98.2 ??F) 36.8 ??C (98.2 ??F) 36.9 ??C (98.4 ??F) TempSrc: Oral Oral Oral SpO2: 99% 99% 98% Weight: Height: No intake or output data in the 24 hours ending 12/20/23 1207 PHYSICAL EXAM: General: Well nourished, comfortable Psych: alert and calm HEENT: normocephalic/atraumatic, anicteric Pulm: Normal work of breathing Cardiac: Regular rate and rhythm GI: abd soft, nondistended, mild tenderness to palpation LLQ without rebound or guarding Neuro: ambulatory, non-focal Skin: warm and dry Musculoskeletal: no deformities LAB/ RADIOLOGY/ DIAGNOSTIC REVIEW: Chem/LFT Lab History Latest Ref Rng & Units 12/11/2023 12/13/2023 21:51 12/16/2023 22:51 12/19/2023 22:29 Labs-Chem/LFT Sodium 135 - 145 mmol/L 140 137 135 135 Creatinine 0.60 - 1.10 mg/dL 0.80 0.78 0.76 0.73 Bilirubin, total 0.1 - 1.2 mg/dL <0.2 AST 10 - 45 Units/L 25 ALT 7 - 45 Units/L 11 Alk phos 40 - 130 Units/L 83 CrCl- Actual Body Weight (Cockcroft-Gault) 65.4 67.1 65.3 67.3 Details More values are hidden. Newest values shown. Go to activity for more data. Hematology Lab History Latest Ref Rng & Units 12/13/2023 21:51 12/16/2023 22:51 12/17/2023 20:27 12/19/2023 22:29 Labs - Hematology WBC 3.8 - 9.9 K/cumm 8.7 10.9 11.0 10.4 Total Hb, POC 11.9 - 15.5 g/dL 7.7 7.7 8.1 7.7 Hct 35.6 - 45.5 % 25.4 25.8 27.4 25.3 Plt 150 - 400 K/cumm 354 347 334 337 Neutrophil abs 1.5 - 6.5 K/cumm 5.2 7.1 8.0 6.7 Lymphocytes, abs 0.8 - 3.3 K/cumm 2.4 2.3 1.7 2.2 I have reviewed the laboratory results. ASSESSMENT/ PLAN: 63 y.o. female with hx of DM, HTN, and recently diagnosed IBD (originally thought to be UC but is now more likely to be Crohn's) who has persistent colitis of her sigmoid colon with microperforation,multiple abscesses of the liver and spleen, and now new left upper lobe lung lesions, some of whichare cavitary. She is not a candidate for anti-TNF treatment in the setting of her lung lesions until etiology is determined. Pt also has a new pelvic mass that requires resection. -Plan for combined resection with billposting supervisor on 12/23 -Continue to optimize nutrition with adequate caloric and protein intake -OOB, encourage ambulation -Continue antibiotics Eleonora Mendez MD 12/20/2023 Cosigned by Janel Ugarte MD at 12/20/2023 4:19 PM CDT Associated attestation - Janel Ugarte MD - 12/20/2023 4:19 PM CDT I have seen and examined the patient on 12/20/23. I agree with the findings and plan of care as documented in the resident's/fellow's note.. and My total encounter time on 12/20/2023 was 25 minutes which was spent in the activities documented in the note. This includes time spent prior to the visit and after the visit in direct care of the patient. This time does not include time spent in any separately reportable services. Please note: This note was created in part with the assistance of [employer] voice recognition software and may contain wrong word or sound-alike substitutions. Production Control Manager variances and error may occur. Not every sentence has been reviewed in its entirety. For questions about the documentation above, please contact Dr. Ugarte. Janel Ugarte MD FASCRS joiner Colon and Rectal Surgery * Sivansamantha Sylvia Hartmann, ESTHER - 12/19/2023 12:43 PM CDT NUTRITION ASSESSMENT Nutrition Status: Patient meets criteria for severe chronic malnutrition, reference AAIM (ASPEN) guidelines. Present on Admission: Yes REASON FOR ASSESSMENT: Follow Up Encounter Date: 12/19/23 12:43 PM Admission Date: 11/25/2023 LOS: 24 days HPI: Patient is a 63 y.o. female female PMH HTN, T2DM, s/p cholecystectomy, a large adnexal mass c/f malignancy, and suspected crohn???s colitis who presents for active colitis. Objective Past Medical History: Diagnosis Date Adrenal mass (HCC) Diabetes mellitus (HCC) Diverticulitis Hypertension Past Surgical History: Procedure Laterality Date CHOLECYSTECTOMY 08/2023 COLONOSCOPY 2021 TUBAL LIGATION Social History Tobacco Use Smoking status: Never Smokeless tobacco: Never Substance and Sexual Activity Drug use: Never Sexual activity: Defer Alcohol Use: Not At Risk (11/13/2023) AUDIT-C Frequency of Alcohol Consumption: Never Average Number of Drinks: Patient does not drink Frequency of Binge Drinking: Never MEDICATION/LAB REVIEW: Scheduled Meds: ciprofloxacin, 500 mg, oral, BID - special enoxaparin, 40 mg, subcutaneous, Daily-2100 folic acid, 1 mg, oral, Daily [Held by Provider] losartan, 25 mg, oral, Daily metroNIDAZOLE, 500 mg, oral, BID multivitamin therapeutic, 1 tablet, oral, Daily pantoprazole DR, 40 mg, oral, Daily thiamine, 100 mg, oral, Daily Continuous Infusions: PRN Meds: acetaminophen benzonatate ondansetron Recent Labs Lab Units 12/16/23225012/13/23 2151 SODIUM mmol/L 135 137 POTASSIUM PLASMA mmol/L 4.6 4.5 CHLORIDE mmol/L 101 103 CO2 mmol/L 28 26 BUN SERUM mg/dL 21 16 CREATININE mg/dL 0.76 0.78 [id number] mL/min/1.73 m2 87 84 CALCIUM mg/dL 8.4* 8.4* ALBUMIN g/dL 2.8* 2.5* PHOSPHORUS PLASMA mg/dL 3.3 3.0 MAGNESIUM mg/dL 1.7 2.0 Recent Labs Lab Units 12/16/23 22512/16/238 12/16/23 1634 12/16/23 1153 12/16/23 0813 12/15/23200212/15/23 1720 GLUCOSE mg/dL 139 -- -- -- -- -- -- POC GLUCOSE MONITOR mg/dL -- 192 164 188 127 210* 172 No results found for: ALT , AST , BILIRUBIN , ALKPHOS , LIPASE Lab Results Component Value Date HGBA1C 5.7 (H) 11/04/2023 HDL 27 (L) 12/04/2023 LDLCALC 28 12/04/2023 CHOL 71 12/04/2023 TRIG 75 12/04/2023 NURSING ASSESSMENT: Last BM Date: 12/18/23 Bowel Sounds (All Quadrants): Present, Passing flatus Emesis Assessment Emesis Color/Appearance: Clear, Yellow Juliano Scale Score: 21 Skin Integrity: Intact Vital Signs BP: 118/56 Temp: 36.3 ??C (97.3 ??F) Pulse: 89 Resp: 18 SpO2: 100 % Intake/Output Summary (Last 24 hours) at 12/19/2023 1243 Last data filed at 12/18/2023 2018 Gross per 24 hour Intake 100 ml Output -- Net 100 ml Adult Malnutrition Scoring Tool (MST) What diet do you follow at home?: regular diet Have You Recently Lost Weight Without Trying?: Yes (Comment) How Much Weight Have You Lost?: 34 lb or more Have you been eating poorly because of a decreased appetite?: Yes Malnutrition Screening Tool (MST) Score: 5 Hunger Screen - Admission Within the past 12 months the food we bought just didn't last and we didn't have money to get more.: Never true Within the past 12 months we worried whether our food would run out before we got money to buy more.: Never true Within the past 12 months, you worried that your food would run out before you got the money to buymore.: Never true Within the past 12 months, the food you bought just didn't last and you didn't have money to get more.: Never true Anthropometrics Weight: 55.5 kg (122 lb 4.8 oz) Admission Weight : 58.7 kg Weight Change: -0.58 kg (-1.30 lbs) IBW/kg (Calculated) : 47.6 kg Height: 154.9 cm (5' 1 ) Weight in (lb) to have BMI = 25: 132 BMI (Calculated): 23.1 Wt Readings from Last 10 Encounters: 12/17/23 55.5 kg (122 lb 4.8 oz) 11/25/23 58.2 kg (128 lb 3.2 oz) 11/13/23 63 kg (139 lb) 11/05/23 61.5 kg (135 lb 9.6 oz) 10/27/23 63 kg (139 lb) 10/23/23 63 kg (139 lb) 10/03/23 66.9 kg (147 lb 7.8 oz) 10/02/23 67.4 kg (148 lb 8 oz) ESTIMATED NEEDS: Weight Used for Equation Calculations (RD Determined): 58.7 kg (129 lb 6.6 oz) Total Kcal/kg Estimated Needs : 1761 Kcal/k. Type of Weight Used for Estimated Kcals: RD determined Total Protein Estimated Needs (gm): 70.49 Protein Needs Based on g/k.2 Type of Weight Used for Estimated Protein : Current Dietary Orders (From admission, onward) Start Ordered 12/10/23 1551 Oral Nutrition Supplements (BJ) Select Supplement: Addictive 1.4 - Vanilla All Meals Question: ([facility]) Select Supplement: Answer: Ayla Sherman 1.4 - Vanilla 12/10/23 1550 12/04/23 1159 Adult Diet Regular Diet effective now Question: ([facility]) Diet type Answer: Regular 12/04/23 1154 Allergies: Reviewed. IMPRESSION: Patient notes she is still trying to eat as many calories as she can and drink ayla Exhibition A 1.4 -threecartons a day. Yesterday she got moved rooms and took a shower and had a bad day did not drink/eat as much therefore did not want to be discouraged and be weighed today. Will hold off and aim for astanding scale weight on Friday. Patient is eating the peanut butter and today going to eat cottagecheese and peaches. continues to also bring in snacks. Weights/Vitals Height Weight (LB) Weight (KG) Weight Method 12/03/2023 127 lb 6.4 oz 57.788 kg Standing scale 12/04/2023 5' 1 127 lb 57.607 kg 12/09/2023 125 lb 3.2 oz 56.79 kg Standing scale 12/10/2023 130 lb 4.7 oz 59.1 kg Bed scale 12/16/2023 123 lb 9.6 oz 56.065 kg Standing scale AAIM (ASPEN) MALNUTRITION ASSESSMENT: Date of completion: 11/27/2023 ASPEN/AND Malnutrition Screening: Chronic illness or injury severe Subcutaneous Fat Loss Severity: Severe Muscle Mass Loss Severity: Severe Patient Meets Criteria for Severe Malnutrition: Yes NUTRITION FOCUSED PHYSICAL EXAM: Completed. Subcutaneous Fat Loss Orbital Region - Surrounding the Eye: Hollow look Upper Arm Region - Triceps/Biceps: Some depth pinch but not ample Muscle Loss Moravian Region - Temporalis Muscle: Slight depression Clavicle Bone Region - Pectoralis Major, Deltoid, Trapezius Muscles: Protruding, prominent bone Clavicle and Acromion Bone Region - Deltoid Muscle: Shoulder to arm joint looks square Anterior Thigh and Patellar Region - Quadricep Muscle: Depression along thigh Posterior Calf Region - Gastrocnemius Muscle: Thin, minimal to no muscle definition NUTRITION DIAGNOSIS: Nutrition Diagnosis 1: Protein-Calorie Malnutrition - Severe Related to: Chronic illness/injury Evidenced by: Physical finding INTERVENTION(S): Summary: Medical food supplement, Encouragement, Meals and snacks Continue ayla Exhibition A 1.4 instead of 1.0 (455 calories per bottle) Discussed she has to have 1400 calories just to maintain her wieght but up to 1700 calories to slowly gain weight Declined standing scale weight today, will weigh on 12/21, at minimum a weight is ideal before surgery on 12/24/2023 GOAL(S): Promote slow and steady weight gain 1/2 to 1 pound per week MONITORING/EVALUATION: Appetite, Discharge plans, I/O, Plan of care, Labs Sylvia Trujillo MS RDN, [facility], * Vicki King MD - 12/19/2023 10:00 AM CDT Images from the original note were not included. [facility] Daily Progress Note Colorectal Surgery Surgery PATIENT NAME: Darius Russo : 1960 ADMIT DATE: 11/25/2023 6:29 PM LOS: 24 Subjective CHIEF COMPLAINT: Physical deconditioning INTERVAL HISTORY: -NAEO -Pt moved to another room, had slightly lower PO intake Objective MEDICATIONS: Scheduled: ciprofloxacin, 500 mg, oral, BID - special enoxaparin, 40 mg, subcutaneous, Daily-2100 folic acid, 1 mg, oral, Daily [Held by Provider] losartan, 25 mg, oral, Daily metroNIDAZOLE, 500 mg, oral, BID multivitamin therapeutic, 1 tablet, oral, Daily pantoprazole DR, 40 mg, oral, Daily thiamine, 100 mg, oral, Daily Infusions: PRN: benzonatate ondansetron VITALS: 24hr Min/Max: Temp Min: 36.3 ??C (97.3 ??F) Max: 37.4 ??C (99.3 ??F) Pulse Min: 89 Max: 109 BP Min: 118/56 Max: 125/64 Resp Min: 18 Max: 18 SpO2 Min: 97 % Max: 100 % Most Recent: Vitals: 12/17/23203912/18/23 0757 12/18/23195412/19/23 0830 BP: 107/55 123/68 125/64 118/56 BP Location: Left arm Left arm Left arm Left arm Patient Position: Lying Lying HOB 30 degrees Pulse: 97 113 109 89 Resp: 18 18 18 18 Temp: 37.5 ??C (99.5 ??F) 36.6 ??C (97.9 ??F) 37.4 ??C (99.3 ??F) 36.3 ??C (97.3 ??F) TempSrc: Oral Oral Oral SpO2: 97% 97% 97% 100% Weight: Height: Intake/Output Summary (Last 24 hours) at 12/19/2023 1000 Last data filed at 12/18/2023 2018 Gross per 24 hour Intake 100 ml Output -- Net 100 ml PHYSICAL EXAM: General: Well nourished, comfortable Psych: alert and calm HEENT: normocephalic/atraumatic, anicteric Pulm: Normal work of breathing Cardiac: Regular rate and rhythm GI: abd soft, nondistended, nontender Neuro: ambulatory, non-focal Skin: warm and dry Musculoskeletal: no deformities LAB/ RADIOLOGY/ DIAGNOSTIC REVIEW: Chem/LFT Lab History Latest Ref Rng & Units 12/09/2023 12/11/2023 12/13/2023 21:51 12/16/2023 22:51 Labs-Chem/LFT Sodium 135 - 145 mmol/L 141 140 137 135 Creatinine 0.60 - 1.10 mg/dL 0.81 0.80 0.78 0.76 Bilirubin, total 0.1 - 1.2 mg/dL <0.2 AST 10 - 45 Units/L 25 ALT 7 - 45 Units/L 11 Alk phos 40 - 130 Units/L 83 CrCl- Actual Body Weight (Cockcroft-Gault) 62.1 65.4 67.1 65.3 Details More values are hidden. Newest values shown. Go to activity for more data. Hematology Lab History Latest Ref Rng & Units 12/11/2023 12/13/2023 21:51 12/16/2023 22:51 12/17/2023 20:27 Labs - Hematology WBC 3.8 - 9.9 K/cumm 8.2 8.7 10.9 11.0 Total Hb, POC 11.9 - 15.5 g/dL 7.3 7.7 7.7 8.1 Hct 35.6 - 45.5 % 25.3 25.4 25.8 27.4 Plt 150 - 400 K/cumm 290 354 347 334 Neutrophil abs 1.5 - 6.5 K/cumm 5.0 5.2 7.1 8.0 Lymphocytes, abs 0.8 - 3.3 K/cumm 2.1 2.4 2.3 1.7 Details More abnormal values are hidden. Newest values shown. Go to activity for more data. More values are hidden. Newest values shown. Go to activity for more data. I have reviewed the laboratory results. ASSESSMENT/ PLAN: 63 y.o. female with hx of DM, HTN, and recently diagnosed IBD (originally thought to be UC but is now more likely to be Crohn's) who has persistent colitis of her sigmoid colon with microperforation,multiple abscesses of the liver and spleen, and now new left upper lobe lung lesions, some of whichare cavitary. She is not a candidate for anti-TNF treatment in the setting of her lung lesions until etiology is determined. Pt also has a new pelvic mass that requires resection. -Plan for combined resection with billposting supervisor on 12/23 -Continue to optimize nutrition with adequate caloric and protein intake -OOB, encourage ambulation -Continue antibiotics Vicki King MD 12/19/2023 Cosigned by Yo Perez MD at 12/19/2023 10:34 AM CDT * Jhonny Kirby MD - 12/19/2023 8:16 AM CDT Medicine Daily Progress Note Patient: Darius Russo : 1960 (63 y.o.) Date of Admission: 11/25/2023 Date of Service: 12/19/23 SUBJECTIVE Interval Events: - Continues to have loosely formed stools. - Complains for LLQ pain this morning, tylenol given - AFVSS - Awaiting surgery 12/23. - q72 labs OBJECTIVE Vitals Most Recent: Vitals: 12/18/231954 BP: 125/64 Pulse: 109 Resp: 18 Temp: 37.4 ??C (99.3 ??F) SpO2: 97% 24 Hour Min/Max: Temp Min: 37.4 ??C (99.3 ??F) Max: 37.4 ??C (99.3 ??F) Pulse Min: 109 Max: 109 BP Min: 125/64 Max: 125/64 Resp Min: 18 Max: 18 SpO2 Min: 97 % Max: 97 % Intake/Output Intake/Output Summary (Last 24 hours) at 12/19/2023 0816 Last data filed at 12/18/20232017 Gross per 24 hour Intake 100 ml Output -- Net 100 ml Current Medications Scheduled Meds: Scheduled Medications Medication Dose Route Frequency ??? ciprofloxacin (CIPRO) tablet 500 mg 500 mg oral BID - special ??? enoxaparin (LOVENOX) syringe 40 mg 40 mg subcutaneous Daily-2100 ??? folic acid (FOLVITE) tablet 1 mg 1 mg oral Daily ??? [Held by Provider] losartan (COZAAR) tablet 25 mg 25 mg oral Daily ??? metroNIDAZOLE (FLAGYL) tablet 500 mg 500 mg oral BID ??? multivitamin with folic acid 400 mcg tablet 1 tablet 1 tablet oral Daily ??? pantoprazole DR (PROTONIX) extended release tablet 40 mg 40 mg oral Daily ??? thiamine (VITAMIN B1) tablet 100 mg 100 mg oral Daily Continuous Meds: Current Facility-Administered Medications Medication Dose Route Frequency Last Admin PRN Meds: PRN Medications Medication Dose Route Frequency Last Admin ??? benzonatate (TESSALON) capsule 100 mg 100 mg oral TID PRN 100 mg at 12/18/23 1816 ??? ondansetron (ZOFRAN) injection 4 mg 4 mg intravenous Q4H PRN 4 mg at 12/09/23 1222 Physical Exam Physical Exam Constitutional: General: She is not in acute distress. HENT: Head: Normocephalic. Right Ear: External ear normal. Left Ear: External ear normal. Nose: Nose normal. Mouth/Throat: Mouth: Mucous membranes are moist. Pharynx: Oropharynx is clear. No oropharyngeal exudate. Eyes: Extraocular Movements: Extraocular movements intact. Pupils: Pupils are equal, round, and reactive to light. Cardiovascular: Rate and Rhythm: Normal rate and regular rhythm. Pulses: Normal pulses. Heart sounds: Normal heart sounds. Comments: 2+ radial pulses bilaterally. Pulmonary: Effort: Pulmonary effort is normal. Comments: CTAB in anterior randall Abdominal: General: Bowel sounds are normal. There is distension. Tenderness: There is abdominal tenderness. There is no guarding or rebound. Musculoskeletal: General: Normal range of motion. Cervical back: Normal range of motion. Skin: General: Skin is warm. Capillary Refill: Capillary refill takes less than 2 seconds. Neurological: General: No focal deficit present. Mental Status: She is alert and oriented to person, place, and time. Laboratory Results Lab Results Component Value Date GLUCOSE 139 12/16/2023 CALCIUM 8.4 (L) 12/16/2023 SODIUM 135 12/16/2023 POTASSIUM 4.6 12/16/2023 CO2 28 12/16/2023 CHLORIDE 101 12/16/2023 BUNSER 21 12/16/2023 CREATININE 0.76 12/16/2023 Lab Results Component Value Date WBC 11.0 (H) 12/17/2023 HGB 8.1 (L) 12/17/2023 HCT 27.4 (L) 12/17/2023 MCV 85.6 12/17/2023 LABPLAT 334 12/17/2023 Imaging Results XR Abdomen Ap 1 Vw Narrative: EXAMINATION: Abdomen, one view. HISTORY: 63-year-old female with abdominal distention COMPARISON: Abdominal radiograph 12/04/2023 Impression: A single view of the abdomen is submitted for evaluation. Partially imaged left pleural effusion appears similar in size to previous study. Cholecystectomy clips present. Normal bowel gas pattern. Dictated by: Yareli York MD The radiology attending physician has personally reviewed this study, and had reviewed and/or edited this written report and agrees with it. Electronically signed by: Shin King M.D. ASSESSMENT & PLAN Darius Russo is a 63 y.o. woman with relevant PMH of IBD (2022 UC, now c/f Crohn's), adnexal mass, HTN, T2DM directly admitted for expedited therapy for IBD iso progressive weight loss, found to have disseminated infectious process thought to be 2/2 bacterial translocation from contained colonicperforation. #IBD c/b multifocal infection (colon, lungs, spleen, liver), Managing Patient was diagnosed with ulcerative colitis in 2022, since which time she has been prescribed rectal mesalamine. She has had recurrent admissions for sigmoid diverticulitis which have been managed medically; most recently, patient was started on a 4wk course of ciprofloxacin/metronidazole (11/05). 11/12 colonoscopy with cryptitis and inflammation now c/f colonic Crohn's, MRI dated same with sigmoid diverticulitis, contained perforation, rectal/sigmoid inflammation. Patient's symptoms include daily diarrhea (now improving) and profound weight loss as detailed elsewhere. She was admitted for remicade vs operative management, course c/b likely infectious process (lungs, liver, spleen) preventi ng remicade initiation. Course c/b recurrent SVT, culture neg sepsis 12/03, 12/08 suspected 2/2 transient bacterial translocation and preventing discharge prior to surgical intervention. - GI c/s, recs appreciated: colectomy - ID c/s, recs appreciated: abx as below - CRS, Business Office Representative/Onc c/s, recs appreciated: Await colectomy + LIBRA/BSO tentatively scheduled 12/23. Working on moving up date pending CRS availability - Continue ciprofloxacin 500mg PO BID, metronidazole 500mg PO BID (11/05-12/03;12/05-12/08; 12/09-); s/p vanc/zosyn (12/03-12/05), erta (12/08-12/09) #Recurrent SVT, No recent episodes Patient with recurrent episodes of symptomatic SVT after BM c/b type 2 NC 12/03, suspect 2/2 transient gut translocation as above. K>4, Mg>2 #FTT/severe malnutrition, improving #Acute weight loss 65lb weight loss over 4mo; suspect related to multifocal process affecting lung/liver/spleen or mass effect from her adnexal mass. Patient endorses poor appetite, early satiety. Folate/B12 normalizedwith enteral repletion. - Nutrition c/s, recs appreciated - s/p HD thiamine, thiamine 100mg PO daily - folic acid 1mg daily, MVI daily - s/p pyridoxine B6 100mg PO daily #Cavitary lung lesions, managing Patient with symptoms including cough and [place]; admission CT CAP11/26/23 with cavitary lung lesions and associated lymphadenopathy, not seen on CT ~1 month ago; patient also with liver/spleen and adnexal masses as below. No clear risk factors for immunosuppresionsave acute severe malnutrition. Comprehensive work-up to date negative for malignancy, vasculitis and without clear infectious pathogen, though suspect some of this work-up may be sterilized iso abx as above. - Pulm c/s, recs/intervention (BAL 11/27) appreciated - Abx as above #Hypocalcemia, resolving Intermittent throughout admission. Possibly related to poor dietary intake. 11/29 25OH-VitD 39 from19 10/26. #Liver/spleen iron deposition: 11/12 MRI, etiology unclear. 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 Non-FDG avid. Business Office Representative/Onc c/s as above. #HTN: hold losartan 25mg daily #T2DM: A1c 5.7%. HDSSI Code Status: Full Code Disposition: pending clinical course Best contact: Primary Emergency Contact: JEAN CLAUDE RUSSO Diet: Adult Diet Regular VTE Prophylaxis: enoxaparin 40mg SQ qhs PT: PT Recommendation/Plan: Home with family, Home with intermittent assist, No further PT indicated OT:OT Recommendation: Home with family, Home with intermittent assist, No further OT indicated Jhonny Kirby MD Resident Physician Cosigned by Parmjit Meehan MD at 12/19/2023 1:13 PM CDT Associated attestation - Parmjit Meehan MD - 12/19/2023 1:13 PM CDT I have seen and examined the patient on 12/19/23. I agree with the findings and plan of care as documented in the resident's/fellow's note. Today, I am treating the patient for colonic perforation and abscess which is in severe exacerbation, progression, or experiencing treatment side effects as evidenced by need for IV abx and surgery, as described in the note. Reviewed records from the following unique sources (external institutions or providers from different services): CRS. Independently interpreted CBC which shows anemia. Discussed management of abscess with residents. The patient is being intensively monitored for drug toxicity from Cipro/BECK by checking CBC, CMP. . * Jyotsna Patton MD PhD - 12/18/2023 11:36 AM CDT Private GI Subsequent Consult Subjective Chief complaint of FTT, contained sigmoid perf Interval History: - No acute events or major changes. Awaiting surgery 12/23 Objective Physical Exam: Vitals: 24hr Min/Max: Temp Min: 36.6 ??C (97.9 ??F) Max: 37.5 ??C (99.5 ??F) Pulse Min: 97 Max: 113 BP Min: 107/55 Max: 123/68 Resp Min: 18 Max: 18 SpO2 Min: 97 % Max: 98 % Most Recent : Vitals: 12/18/23 0757 BP: 123/68 Pulse: 113 Resp: 18 Temp: 36.6 ??C (97.9 ??F) SpO2: 97% Physical exam: Constitutional: NAD. In bed. Eyes: EOMI grossly intact. Anicteric ENT: NCAT. moist mucus membranes. Lungs: Breathing comfortably on RA. Unlabored. Trachea midline. Cardiovascular: Regular rate GI: Soft, NT, ND Skin: No new rashes, lesions or bruises on exposed skin Extremities: Normal without edema or cyanosis on exposed skin Neuro: Alert. MAEW. Assessment/Plan Principal Problem: Physical deconditioning Active Problems: Splenic abscess Pulmonary nodule Hepatic abscess Severe malnutrition (CMS/HCC) Consolidation of left upper lobe of lung (CMS/HCC) (HCC) Fever Darius uRsso is a 63 y.o. female with PMH HTN, T2DM, s/p cholecystectomy, a large adnexal mass c/f malignancy, and suspected crohn???s colitis who presents for contained sigmoid perf and FTT. 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 She was admitted with the plan to initiate IFX, however she had new symptoms of a cough and CT showing cavitary pulmonary nodules as well as increased pericolonic fluid collection. Both of these findings pose significant barriers to initiating abx. While mycobacterial/fungal infection causing thesecavitary lesions in the lung are still possible, their interval improvement without directed therapy is reassuring. Progressive worsening of her sigmoid phlegmon this admission however still poses a contraindication to IFX initiation. Additionally, she has had 2 episodes of fevers, chills, diaphoresis, hypotension and tachycardia this admission which are presumably 2/2 translocation form her worsening sigmoid perf/fluid collection. These required escalation of abx to IV ertapenem during these episodes. Recommendations: - plan for combined resection with CRS and ObGyn on 12/23. Previously discussed with them if recurrent SIRS 2/2 colonic fluid collection would influence more urgent surgical intervention - abx per primary/ID - Cont optimization of nutritional status. TPN not viable given intraabdominal fluid collection with mircroabscesses and possible infectious process involving lungs - Not a candidate for IBD medical therapy pending surgical intervention We will continue to follow-up with you. Thank you for involving us in the care of this patient. If you have any questions, please call the [email or web address] pager during weekdays or the [facility] phone during after hours and weekends. Jyotsna Patton MD PhD GI Fellow Cosigned by Carrie Johnson MD at 12/20/2023 10:56 AM CDT Associated attestation - Carrie Johnson MD - 12/20/2023 10:56 AM CDT The resident/fellow saw and examined the patient, we discussed their findings, and I am in agreement with the plan based on the discussion with the resident/fellow. I did not personally examine the patient. * Jhonny Kirby MD - 12/18/2023 10:53 AM CDT Medicine Daily Progress Note Patient: Darius Russo : 1960 (63 y.o.) Date of Admission: 11/25/2023 Date of Service: 12/18/23 SUBJECTIVE Interval Events: - Multiple (2) loose stools overnight. Consider simethicone today - AF, tachycardia resolving, WBC 11 (10.9) lateral, hgb 8.1 (7.7) lateral - Awaiting surgery 12/23. - q72 labs - Dc'd poct and slide OBJECTIVE Vitals Most Recent: Vitals: 12/18/23 0757 BP: 123/68 Pulse: 113 Resp: 18 Temp: 36.6 ??C (97.9 ??F) SpO2: 97% 24 Hour Min/Max: Temp Min: 36.6 ??C (97.9 ??F) Max: 37.5 ??C (99.5 ??F) Pulse Min: 97 Max: 113 BP Min: 107/55 Max: 123/68 Resp Min: 18 Max: 18 SpO2 Min: 97 % Max: 98 % Intake/Output Intake/Output Summary (Last 24 hours) at 12/18/2023 1053 Last data filed at 12/18/2023 0730 Gross per 24 hour Intake 325 ml Output 850 ml Net -525 ml Current Medications Scheduled Meds: Scheduled Medications Medication Dose Route Frequency ??? ciprofloxacin (CIPRO) tablet 500 mg 500 mg oral BID - special ??? enoxaparin (LOVENOX) syringe 40 mg 40 mg subcutaneous Daily-2100 ??? folic acid (FOLVITE) tablet 1 mg 1 mg oral Daily ??? [Held by Provider] losartan (COZAAR) tablet 25 mg 25 mg oral Daily ??? metroNIDAZOLE (FLAGYL) tablet 500 mg 500 mg oral BID ??? multivitamin with folic acid 400 mcg tablet 1 tablet 1 tablet oral Daily ??? pantoprazole DR (PROTONIX) extended release tablet 40 mg 40 mg oral Daily ??? thiamine (VITAMIN B1) tablet 100 mg 100 mg oral Daily Continuous Meds: Current Facility-Administered Medications Medication Dose Route Frequency Last Admin PRN Meds: PRN Medications Medication Dose Route Frequency Last Admin ??? benzonatate (TESSALON) capsule 100 mg 100 mg oral TID PRN 100 mg at 12/17/23 1842 ??? ondansetron (ZOFRAN) injection 4 mg 4 mg intravenous Q4H PRN 4 mg at 12/09/23 1222 Physical Exam Physical Exam Constitutional: General: She is not in acute distress. HENT: Head: Normocephalic. Right Ear: External ear normal. Left Ear: External ear normal. Nose: Nose normal. Mouth/Throat: Mouth: Mucous membranes are moist. Pharynx: Oropharynx is clear. No oropharyngeal exudate. Eyes: Extraocular Movements: Extraocular movements intact. Pupils: Pupils are equal, round, and reactive to light. Cardiovascular: Rate and Rhythm: Normal rate and regular rhythm. Pulses: Normal pulses. Heart sounds: Normal heart sounds. Comments: 2+ radial pulses bilaterally. Pulmonary: Effort: Pulmonary effort is normal. Comments: CTAB in anterior randall Abdominal: General: Bowel sounds are normal. There is distension. Tenderness: There is abdominal tenderness. There is no guarding or rebound. Musculoskeletal: General: Normal range of motion. Cervical back: Normal range of motion. Skin: General: Skin is warm. Capillary Refill: Capillary refill takes less than 2 seconds. Neurological: General: No focal deficit present. Mental Status: She is alert and oriented to person, place, and time. Laboratory Results Lab Results Component Value Date GLUCOSE 139 12/16/2023 CALCIUM 8.4 (L) 12/16/2023 SODIUM 135 12/16/2023 POTASSIUM 4.6 12/16/2023 CO2 28 12/16/2023 CHLORIDE 101 12/16/2023 BUNSER 21 12/16/2023 CREATININE 0.76 12/16/2023 Lab Results Component Value Date WBC 11.0 (H) 12/17/2023 HGB 8.1 (L) 12/17/2023 HCT 27.4 (L) 12/17/2023 MCV 85.6 12/17/2023 LABPLAT 334 12/17/2023 Imaging Results XR Abdomen Ap 1 Vw Narrative: EXAMINATION: Abdomen, one view. HISTORY: 63-year-old female with abdominal distention COMPARISON: Abdominal radiograph 12/04/2023 Impression: A single view of the abdomen is submitted for evaluation. Partially imaged left pleural effusion appears similar in size to previous study. Cholecystectomy clips present. Normal bowel gas pattern. Dictated by: Yareli York MD The radiology attending physician has personally reviewed this study, and had reviewed and/or edited this written report and agrees with it. Electronically signed by: Shin King M.D. ASSESSMENT & PLAN Darius Russo is a 63 y.o. woman with relevant PMH of IBD (2022 UC, now c/f Crohn's), adnexal mass, HTN, T2DM directly admitted for expedited therapy for IBD iso progressive weight loss, found to have disseminated infectious process thought to be 2/2 bacterial translocation from contained colonicperforation. #IBD c/b multifocal infection (colon, lungs, spleen, liver), Managing Patient was diagnosed with ulcerative colitis in 2022, since which time she has been prescribed rectal mesalamine. She has had recurrent admissions for sigmoid diverticulitis which have been managed medically; most recently, patient was started on a 4wk course of ciprofloxacin/metronidazole (11/05). 11/12 colonoscopy with cryptitis and inflammation now c/f colonic Crohn's, MRI dated same with sigmoid diverticulitis, contained perforation, rectal/sigmoid inflammation. Patient's symptoms include daily diarrhea (now improving) and profound weight loss as detailed elsewhere. She was admitted for remicade vs operative management, course c/b likely infectious process (lungs, liver, spleen) preventi ng remicade initiation. Course c/b recurrent SVT, culture neg sepsis 12/03, 12/08 suspected 2/2 transient bacterial translocation and preventing discharge prior to surgical intervention. - GI c/s, recs appreciated: colectomy - ID c/s, recs appreciated: abx as below - CRS, Business Office Representative/Onc c/s, recs appreciated: Await colectomy + LIBRA/BSO tentatively scheduled 12/23. Working on moving up date pending CRS availability - Continue ciprofloxacin 500mg PO BID, metronidazole 500mg PO BID (11/05-12/03;12/05-12/08; 12/09-); s/p vanc/zosyn (12/03-12/05), erta (12/08-12/09) #Recurrent SVT, No recent episodes Patient with recurrent episodes of symptomatic SVT after BM c/b type 2 NC 12/03, suspect 2/2 transient gut translocation as above. K>4, Mg>2 #FTT/severe malnutrition, improving #Acute weight loss 65lb weight loss over 4mo; suspect related to multifocal process affecting lung/liver/spleen or mass effect from her adnexal mass. Patient endorses poor appetite, early satiety. Folate/B12 normalizedwith enteral repletion. - Nutrition c/s, recs appreciated - s/p HD thiamine, thiamine 100mg PO daily - folic acid 1mg daily, MVI daily - s/p pyridoxine B6 100mg PO daily #Cavitary lung lesions, managing Patient with symptoms including cough and [place]; admission CT CAP11/26/23 with cavitary lung lesions and associated lymphadenopathy, not seen on CT ~1 month ago; patient also with liver/spleen and adnexal masses as below. No clear risk factors for immunosuppresionsave acute severe malnutrition. Comprehensive work-up to date negative for malignancy, vasculitis and without clear infectious pathogen, though suspect some of this work-up may be sterilized iso abx as above. - Pulm c/s, recs/intervention (BAL 11/27) appreciated - Abx as above #Hypocalcemia, resolving Intermittent throughout admission. Possibly related to poor dietary intake. 11/29 25OH-VitD 39 from19 10/26. #Liver/spleen iron deposition: 11/12 MRI, etiology unclear. 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 Non-FDG avid. Business Office Representative/Onc c/s as above. #HTN: hold losartan 25mg daily #T2DM: A1c 5.7%. HDSSI Code Status: Full Code Disposition: pending clinical course Best contact: Primary Emergency Contact: JEAN CLAUDE RUSSO Diet: Adult Diet Regular VTE Prophylaxis: enoxaparin 40mg SQ qhs PT: PT Recommendation/Plan: Home with family, Home with intermittent assist, No further PT indicated OT:OT Recommendation: Home with family, Home with intermittent assist, No further OT indicated Jhonny Kirby MD Resident Physician Cosigned by Parmjit Meehan MD at 12/18/2023 12:19 PM CDT Associated attestation - Parmjit Meehan MD - 12/18/2023 12:19 PM CDT I have seen and examined the patient on 12/18/23. I agree with the findings and plan of care as documented in the resident's/fellow's note. Today, I am treating the patient for colonic perforation and abscess which is in severe exacerbation, progression, or experiencing treatment side effects as evidenced by need for IV abx and surgery, as described in the note. Reviewed records from the following unique sources (external institutions or providers from different services): CRS. Independently interpreted CBC which shows anemia. Discussed management of abscess with residents. The patient is being intensively monitored for drug toxicity from Cipro/BECK by checking CBC, CMP. . * Vicki King MD - 12/18/2023 6:41 AM CDT Images from the original note were not included. [facility] Daily Progress Note Colorectal Surgery Surgery PATIENT NAME: Darius Russo : 1960 ADMIT DATE: 11/25/2023 6:29 PM LOS: 23 Subjective CHIEF COMPLAINT: Physical deconditioning INTERVAL HISTORY: -NAEO -Pt continues to have BM and have good PO intake -She continues to ambulate Objective MEDICATIONS: Scheduled: ciprofloxacin, 500 mg, oral, BID - special enoxaparin, 40 mg, subcutaneous, Daily-2100 folic acid, 1 mg, oral, Daily [Held by Provider] losartan, 25 mg, oral, Daily metroNIDAZOLE, 500 mg, oral, BID multivitamin therapeutic, 1 tablet, oral, Daily pantoprazole DR, 40 mg, oral, Daily thiamine, 100 mg, oral, Daily Infusions: PRN: benzonatate ondansetron VITALS: 24hr Min/Max: Temp Min: 36.9 ??C (98.4 ??F) Max: 37.5 ??C (99.5 ??F) Pulse Min: 83 Max: 103 BP Min: 107/55 Max: 122/71 Resp Min: 18 Max: 18 SpO2 Min: 97 % Max: 98 % Most Recent: Vitals: 12/17/23 0500 12/17/23 0750 12/17/23 1435 12/17/23 2040 BP: 122/71 116/53 107/55 BP Location: Left arm Left arm Left arm Patient Position: Lying Pulse: 83 103 97 Resp: 18 18 18 Temp: 36.9 ??C (98.4 ??F) 37.2 ??C (99 ??F) 37.5 ??C (99.5 ??F) TempSrc: Oral Oral Oral SpO2: 98% 98% 97% Weight: 55.5 kg (122 lb 4.8 oz) Height: Intake/Output Summary (Last 24 hours) at 12/18/2023 0642 Last data filed at 12/18/2023 0330 Gross per 24 hour Intake 325 ml Output 550 ml Net -225 ml PHYSICAL EXAM: General: Well nourished, comfortable Psych: alert and calm HEENT: normocephalic/atraumatic, anicteric Pulm: Normal work of breathing Cardiac: Regular rate and rhythm GI: abd soft, nondistended, nontender Neuro: ambulatory, non-focal Skin: warm and dry Musculoskeletal: no deformities LAB/ RADIOLOGY/ DIAGNOSTIC REVIEW: Chem/LFT Lab History Latest Ref Rng & Units 12/09/2023 12/11/2023 12/13/2023 21:51 12/16/2023 22:51 Labs-Chem/LFT Sodium 135 - 145 mmol/L 141 140 137 135 Creatinine 0.60 - 1.10 mg/dL 0.81 0.80 0.78 0.76 Bilirubin, total 0.1 - 1.2 mg/dL <0.2 AST 10 - 45 Units/L 25 ALT 7 - 45 Units/L 11 Alk phos 40 - 130 Units/L 83 CrCl- Actual Body Weight (Cockcroft-Gault) 62.1 65.4 67.1 65.3 Details More values are hidden. Newest values shown. Go to activity for more data. Hematology Lab History Latest Ref Rng & Units 12/11/2023 12/13/2023 21:51 12/16/2023 22:51 12/17/2023 20:27 Labs - Hematology WBC 3.8 - 9.9 K/cumm 8.2 8.7 10.9 11.0 Total Hb, POC 11.9 - 15.5 g/dL 7.3 7.7 7.7 8.1 Hct 35.6 - 45.5 % 25.3 25.4 25.8 27.4 Plt 150 - 400 K/cumm 290 354 347 334 Neutrophil abs 1.5 - 6.5 K/cumm 5.0 5.2 7.1 8.0 Lymphocytes, abs 0.8 - 3.3 K/cumm 2.1 2.4 2.3 1.7 Details More abnormal values are hidden. Newest values shown. Go to activity for more data. More values are hidden. Newest values shown. Go to activity for more data. I have reviewed the laboratory results. ASSESSMENT/ PLAN: 63 y.o. female with hx of DM, HTN, and recently diagnosed IBD (originally thought to be UC but is now more likely to be Crohn's) who has persistent colitis of her sigmoid colon with microperforation,multiple abscesses of the liver and spleen, and now new left upper lobe lung lesions, some of whichare cavitary. She is not a candidate for anti-TNF treatment in the setting of her lung lesions until etiology is determined. Pt also has a new pelvic mass that requires resection. -Plan for combined resection with billposting supervisor on 12/23 -Continue to optimize nutrition with adequate caloric and protein intake -Continue antibiotics Vicki King MD 12/18/2023 Cosigned by Yo Perez MD at 12/18/2023 7:54 AM CDT * Jhonny Kirby MD - 12/17/2023 8:03 AM CDT Medicine Daily Progress Note Patient: Darius Russo : 1960 (63 y.o.) Date of Admission: 11/25/2023 Date of Service: 12/17/23 SUBJECTIVE Interval Events: - Multiple (2-3) loose stools overnight. s/p simethicone - AF, tachy (max 110), WBC 10.9 (slight increase), hgb 7.7 lateral - Awaiting surgery 12/23. - q72 labs - Dc'd poct and slide OBJECTIVE Vitals Most Recent: Vitals: 12/17/23 0750 BP: 122/71 Pulse: 83 Resp: 18 Temp: 36.9 ??C (98.4 ??F) SpO2: 98% 24 Hour Min/Max: Temp Min: 36.7 ??C (98.1 ??F) Max: 36.9 ??C (98.4 ??F) Pulse Min: 83 Max: 110 BP Min: 122/71 Max: 133/67 Resp Min: 18 Max: 18 SpO2 Min: 92 % Max: 99 % Intake/Output No intake or output data in the 24 hours ending 12/17/23 1104 Current Medications Scheduled Meds: Scheduled Medications Medication Dose Route Frequency ??? ciprofloxacin (CIPRO) tablet 500 mg 500 mg oral BID - special ??? enoxaparin (LOVENOX) syringe 40 mg 40 mg subcutaneous Daily-2099 ??? folic acid (FOLVITE) tablet 1 mg 1 mg oral Daily ??? [Held by Provider] losartan (COZAAR) tablet 25 mg 25 mg oral Daily ??? metroNIDAZOLE (FLAGYL) tablet 500 mg 500 mg oral BID ??? multivitamin with folic acid 400 mcg tablet 1 tablet 1 tablet oral Daily ??? pantoprazole DR (PROTONIX) extended release tablet 40 mg 40 mg oral Daily ??? psyllium (aspartame) SF (METAMUCIL SF) 3.4 gram packet 1 packet 1 packet oral Once ??? thiamine (VITAMIN B1) tablet 100 mg 100 mg oral Daily Continuous Meds: Current Facility-Administered Medications Medication Dose Route Frequency Last Admin PRN Meds: PRN Medications Medication Dose Route Frequency Last Admin ??? benzonatate (TESSALON) capsule 100 mg 100 mg oral TID PRN 100 mg at 12/16/23 1825 ??? ondansetron (ZOFRAN) injection 4 mg 4 mg intravenous Q4H PRN 4 mg at 12/09/23 1222 Physical Exam Physical Exam Constitutional: General: She is not in acute distress. HENT: Head: Normocephalic. Right Ear: External ear normal. Left Ear: External ear normal. Nose: Nose normal. Mouth/Throat: Mouth: Mucous membranes are moist. Pharynx: Oropharynx is clear. No oropharyngeal exudate. Eyes: Extraocular Movements: Extraocular movements intact. Pupils: Pupils are equal, round, and reactive to light. Cardiovascular: Rate and Rhythm: Normal rate and regular rhythm. Pulses: Normal pulses. Heart sounds: Normal heart sounds. Comments: 2+ radial pulses bilaterally. Pulmonary: Effort: Pulmonary effort is normal. Comments: CTAB in anterior randall Abdominal: General: Bowel sounds are normal. There is distension. Tenderness: There is abdominal tenderness. There is no guarding or rebound. Musculoskeletal: General: Normal range of motion. Cervical back: Normal range of motion. Skin: General: Skin is warm. Capillary Refill: Capillary refill takes less than 2 seconds. Neurological: General: No focal deficit present. Mental Status: She is alert and oriented to person, place, and time. Laboratory Results Lab Results Component Value Date GLUCOSE 139 12/16/2023 CALCIUM 8.4 (L) 12/16/2023 SODIUM 135 12/16/2023 POTASSIUM 4.6 12/16/2023 CO2 28 12/16/2023 CHLORIDE 101 12/16/2023 BUNSER 21 12/16/2023 CREATININE 0.76 12/16/2023 Lab Results Component Value Date WBC 10.9 (H) 12/16/2023 HGB 7.7 (L) 12/16/2023 HCT 25.8 (L) 12/16/2023 MCV 86.0 12/16/2023 LABPLAT 347 12/16/2023 Imaging Results XR Abdomen Ap 1 Vw Narrative: EXAMINATION: Abdomen, one view. HISTORY: 63-year-old female with abdominal distention COMPARISON: Abdominal radiograph 12/04/2023 Impression: A single view of the abdomen is submitted for evaluation. Partially imaged left pleural effusion appears similar in size to previous study. Cholecystectomy clips present. Normal bowel gas pattern. Dictated by: Yareli York MD The radiology attending physician has personally reviewed this study, and had reviewed and/or edited this written report and agrees with it. Electronically signed by: Shin King M.D. ASSESSMENT & PLAN Darius Russo is a 63 y.o. woman with relevant PMH of IBD (2022 UC, now c/f Crohn's), adnexal mass, HTN, T2DM directly admitted for expedited therapy for IBD iso progressive weight loss, found to have disseminated infectious process thought to be 2/2 bacterial translocation from contained colonicperforation. #IBD c/b multifocal infection (colon, lungs, spleen, liver), Managing Patient was diagnosed with ulcerative colitis in 2022, since which time she has been prescribed rectal mesalamine. She has had recurrent admissions for sigmoid diverticulitis which have been managed medically; most recently, patient was started on a 4wk course of ciprofloxacin/metronidazole (11/05). 11/12 colonoscopy with cryptitis and inflammation now c/f colonic Crohn's, MRI dated same with sigmoid diverticulitis, contained perforation, rectal/sigmoid inflammation. Patient's symptoms include daily diarrhea (now improving) and profound weight loss as detailed elsewhere. She was admitted for remicade vs operative management, course c/b likely infectious process (lungs, liver, spleen) preventi ng remicade initiation. Course c/b recurrent SVT, culture neg sepsis 12/03, 12/08 suspected 2/2 transient bacterial translocation and preventing discharge prior to surgical intervention. - GI c/s, recs appreciated: colectomy - ID c/s, recs appreciated: abx as below - CRS, Business Office Representative/Onc c/s, recs appreciated: Await colectomy + LIBRA/BSO tentatively scheduled 12/23. Working on moving up date pending CRS availability - Continue ciprofloxacin 500mg PO BID, metronidazole 500mg PO BID (11/05-12/03;12/05-12/08; 12/09-); s/p vanc/zosyn (12/03-12/05), erta (12/08-12/09) #Cavitary lung lesions, managing Patient with symptoms including [place] and [place] admission CT CAP11/26/23 with cavitary lung lesions and associated lymphadenopathy, not seen on CT ~1 month ago; patient also with liver/spleen and adnexal masses as below. No clear risk factors for immunosuppresionsave acute severe malnutrition. Comprehensive work-up to date negative for malignancy, vasculitis and without clear infectious pathogen, though suspect some of this work-up may be sterilized iso abx as above. - Pulm c/s, recs/intervention (BAL 11/27) appreciated - Abx as above #FTT/severe malnutrition, improving #Acute weight loss 65lb weight loss over 4mo; suspect related to multifocal process affecting lung/liver/spleen or mass effect from her adnexal mass. Patient endorses poor appetite, early satiety. Folate/B12 normalizedwith enteral repletion. - Nutrition c/s, recs appreciated - s/p HD thiamine, thiamine 100mg PO daily - folic acid 1mg daily, MVI daily - s/p pyridoxine B6 100mg PO daily #Recurrent SVT, No recent episodes Patient with recurrent episodes of symptomatic SVT after BM c/b type 2 NC 12/03, suspect 2/2 transient gut translocation as above. K>4, Mg>2 #Hypocalcemia, resolving Intermittent throughout admission. Possibly related to poor dietary intake. 11/29 25OH-VitD 39 from19 10/26. #Liver/spleen iron deposition: 11/12 MRI, etiology unclear. 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 Non-FDG avid. Business Office Representative/Onc c/s as above. #HTN: hold losartan 25mg daily #T2DM: A1c 5.7%. HDSSI Code Status: Full Code Disposition: pending clinical course Best contact: Primary Emergency Contact: JEAN CLAUDE RUSSO Diet: Adult Diet Regular VTE Prophylaxis: enoxaparin 40mg SQ qhs PT: PT Recommendation/Plan: Home with family, Home with intermittent assist, No further PT indicated OT:OT Recommendation: Home with family, Home with intermittent assist, No further OT indicated Jhonny Kirby MD Resident Physician Cosigned by Parmjit Meehan MD at 12/17/2023 12:25 PM CDT Associated attestation - Parmjit Meehan MD - 12/17/2023 12:25 PM CDT I have seen and examined the patient on 12/17/23. I agree with the findings and plan of care as documented in the resident's/fellow's note. Today, I am treating the patient for colonic perforation and abscess which is in severe exacerbation, progression, or experiencing treatment side effects as evidenced by need for IV abx and surgery, as described in the note. Reviewed records from the following unique sources (external institutions or providers from different services): GI. Independently interpreted CBC which shows anemia. Discussed management of abscess with residents. The patient is being intensively monitored for drug toxicity from Cipro/BECK by checking CBC, CMP. . * Vicki King MD - 12/17/2023 7:01 AM CDT Images from the original note were not included. [facility] Daily Progress Note Colorectal Surgery Surgery PATIENT NAME: Darius Russo : 1960 ADMIT DATE: 11/25/2023 6:29 PM LOS: 22 Subjective CHIEF COMPLAINT: Physical deconditioning INTERVAL HISTORY: -NAEO -Pt continues to have BM and have good PO intake Objective MEDICATIONS: Scheduled: ciprofloxacin, 500 mg, oral, BID - special enoxaparin, 40 mg, subcutaneous, Daily-2100 folic acid, 1 mg, oral, Daily [Held by Provider] losartan, 25 mg, oral, Daily metroNIDAZOLE, 500 mg, oral, BID multivitamin therapeutic, 1 tablet, oral, Daily pantoprazole DR, 40 mg, oral, Daily thiamine, 100 mg, oral, Daily Infusions: PRN: benzonatate ondansetron VITALS: 24hr Min/Max: Temp Min: 36.9 ??C (98.4 ??F) Max: 37.2 ??C (99 ??F) Pulse Min: 83 Max: 104 BP Min: 116/53 Max: 133/67 Resp Min: 18 Max: 18 SpO2 Min: 98 % Max: 99 % Most Recent: Vitals: 12/16/23 2038 12/17/23 0500 12/17/23 0750 12/17/23 1435 BP: 133/67 122/71 116/53 BP Location: Left arm Left arm Left arm Patient Position: Lying Pulse: 104 83 103 Resp: 18 18 18 Temp: 36.9 ??C (98.4 ??F) 36.9 ??C (98.4 ??F) 37.2 ??C (99 ??F) TempSrc: Oral Oral Oral SpO2: 99% 98% 98% Weight: 55.5 kg (122 lb 4.8 oz) Height: No intake or output data in the 24 hours ending 12/17/23 1656 PHYSICAL EXAM: General: Well nourished, comfortable Psych: alert and calm HEENT: normocephalic/atraumatic, anicteric Pulm: Normal work of breathing Cardiac: Regular rate and rhythm GI: abd soft, nondistended, nontender Neuro: ambulatory, non-focal Skin: warm and dry Musculoskeletal: no deformities LAB/ RADIOLOGY/ DIAGNOSTIC REVIEW: Chem/LFT Lab History Latest Ref Rng & Units 12/09/2023 12/11/2023 12/13/2023 21:51 12/16/2023 22:51 Labs-Chem/LFT Sodium 135 - 145 mmol/L 141 140 137 135 Creatinine 0.60 - 1.10 mg/dL 0.81 0.80 0.78 0.76 Bilirubin, total 0.1 - 1.2 mg/dL <0.2 AST 10 - 45 Units/L 25 ALT 7 - 45 Units/L 11 Alk phos 40 - 130 Units/L 83 CrCl- Actual Body Weight (Cockcroft-Gault) 62.1 65.4 67.1 65.3 Details More values are hidden. Newest values shown. Go to activity for more data. Hematology Lab History Latest Ref Rng & Units 12/09/2023 12/11/2023 12/13/2023 21:51 12/16/2023 22:51 Labs - Hematology WBC 3.8 - 9.9 K/cumm 17.9 8.2 8.7 10.9 Total Hb, POC 11.9 - 15.5 g/dL 7.3 7.3 7.7 7.7 Hct 35.6 - 45.5 % 24.2 25.3 25.4 25.8 Plt 150 - 400 K/cumm 413 290 354 347 Neutrophil abs 1.5 - 6.5 K/cumm 14.7 5.0 5.2 7.1 Lymphocytes, abs 0.8 - 3.3 K/cumm 1.9 2.1 2.4 2.3 Details More abnormal values are hidden. Newest values shown. Go to activity for more data. More values are hidden. Newest values shown. Go to activity for more data. I have reviewed the laboratory results. ASSESSMENT/ PLAN: 63 y.o. female with hx of DM, HTN, and recently diagnosed IBD (originally thought to be UC but is now more likely to be Crohn's) who has persistent colitis of her sigmoid colon with microperforation,multiple abscesses of the liver and spleen, and now new left upper lobe lung lesions, some of whichare cavitary. She is not a candidate for anti-TNF treatment in the setting of her lung lesions until etiology is determined. Pt also has a new pelvic mass that requires resection. -Plan for combined resection with billposting supervisor on 12/23 -Continue to optimize nutrition with adequate caloric and protein intake -Continue antibiotics Vicki King MD 12/17/2023 Cosigned by Yo Perez MD at 12/18/2023 7:54 AM CDT * Cassandra Sylvia Hartmann, RD - 12/16/2023 2:48 PM CDT NUTRITION ASSESSMENT Nutrition Status: Patient meets criteria for severe chronic malnutrition, reference AAIM (ASPEN) guidelines. Present on Admission: Yes REASON FOR ASSESSMENT: Follow Up Encounter Date: 12/16/23 2:48 PM Admission Date: 11/25/2023 LOS: 21 days HPI: Patient is a 63 y.o. female female PMH HTN, T2DM, s/p cholecystectomy, a large adnexal mass c/f malignancy, and suspected crohn???s colitis who presents for active colitis. Objective Past Medical History: Diagnosis Date Adrenal mass (HCC) Diabetes mellitus (HCC) Diverticulitis Hypertension Past Surgical History: Procedure Laterality Date CHOLECYSTECTOMY 08/2023 COLONOSCOPY 2021 TUBAL LIGATION Social History Tobacco Use Smoking status: Never Smokeless tobacco: Never Substance and Sexual Activity Drug use: Never Sexual activity: Defer Alcohol Use: Not At Risk (11/13/2023) AUDIT-C Frequency of Alcohol Consumption: Never Average Number of Drinks: Patient does not drink Frequency of Binge Drinking: Never MEDICATION/LAB REVIEW: Scheduled Meds: ciprofloxacin, 500 mg, oral, BID - special enoxaparin, 40 mg, subcutaneous, Daily-2100 folic acid, 1 mg, oral, Daily [Held by Provider] losartan, 25 mg, oral, Daily metroNIDAZOLE, 500 mg, oral, BID multivitamin therapeutic, 1 tablet, oral, Daily pantoprazole DR, 40 mg, oral, Daily thiamine, 100 mg, oral, Daily Continuous Infusions: PRN Meds: benzonatate ondansetron Recent Labs Lab Units 12/13/23 2151 12/11/23 2215 12/11/23 0010 SODIUM mmol/L 137 140 138 POTASSIUM PLASMA mmol/L 4.5 4.4 3.9 CHLORIDE mmol/L 103 103 105 CO2 mmol/L 26 28 26 BUN SERUM mg/dL 16 13 13 CREATININE mg/dL 0.78 0.80 0.86 OVH-ETR-ERMAWDG mL/min/1.73 m2 84 82 75 CALCIUM mg/dL 8.4* 8.2* 8.4* ALBUMIN g/dL 2.5* 2.8* 2.8* 2.1* PHOSPHORUS PLASMA mg/dL 3.0 3.0 2.8 MAGNESIUM mg/dL 2.0 2.0 1.8 Recent Labs Lab Units 12/16/23 1153 12/16/23 0813 12/15/23 2003 12/15/23 1720 12/15/23 1212 12/15/23 0811 12/14/232036 POC GLUCOSE MONITOR mg/dL 188 127 210* 172 169 129 124 No results found for: ALT , AST , BILIRUBIN , ALKPHOS , LIPASE Lab Results Component Value Date HGBA1C 5.7 (H) 11/04/2023 HDL 27 (L) 12/04/2023 LDLCALC 28 12/04/2023 CHOL 71 12/04/2023 TRIG 75 12/04/2023 NURSING ASSESSMENT: Last BM Date: 12/16/23 Bowel Sounds (All Quadrants): Active Emesis Assessment Emesis Color/Appearance: Clear, Yellow Juliano Scale Score: 21 Skin Integrity: Intact Vital Signs BP: 127/69 Temp: 36.6 ??C (97.9 ??F) Pulse: 95 Resp: 18 SpO2: 98 % Intake/Output Summary (Last 24 hours) at 12/16/2023 1448 Last data filed at 12/15/2023 2100 Gross per 24 hour Intake 705 ml Output -- Net 705 ml Adult Malnutrition Scoring Tool (MST) What diet do you follow at home?: regular diet Have You Recently Lost Weight Without Trying?: Yes (Comment) How Much Weight Have You Lost?: 34 lb or more Have you been eating poorly because of a decreased appetite?: Yes Malnutrition Screening Tool (MST) Score: 5 Hunger Screen - Admission Within the past 12 months the food we bought just didn't last and we didn't have money to get more.: Never true Within the past 12 months we worried whether our food would run out before we got money to buy more.: Never true Within the past 12 months, you worried that your food would run out before you got the money to buymore.: Never true Within the past 12 months, the food you bought just didn't last and you didn't have money to get more.: Never true Anthropometrics Weight: 56.1 kg (123 lb 9.6 oz) Admission Weight : 58.7 kg Weight Change: -3.03 kg (-6.69 lbs) IBW/kg (Calculated) : 47.6 kg Height: 154.9 cm (5' 1 ) Weight in (lb) to have BMI = 25: 132 BMI (Calculated): 23.4 Wt Readings from Last 10 Encounters: 12/16/23 56.1 kg (123 lb 9.6 oz) 11/25/23 58.2 kg (128 lb 3.2 oz) 11/13/23 63 kg (139 lb) 11/05/23 61.5 kg (135 lb 9.6 oz) 10/27/23 63 kg (139 lb) 10/23/23 63 kg (139 lb) 10/03/23 66.9 kg (147 lb 7.8 oz) 10/02/23 67.4 kg (148 lb 8 oz) ESTIMATED NEEDS: Weight Used for Equation Calculations (RD Determined): 58.7 kg (129 lb 6.6 oz) Total Kcal/kg Estimated Needs : 1761 Kcal/k. Type of Weight Used for Estimated Kcals: RD determined Total Protein Estimated Needs (gm): 70.49 Protein Needs Based on g/k.2 Type of Weight Used for Estimated Protein : Current Dietary Orders (From admission, onward) Start Ordered 12/10/23 1551 Oral Nutrition Supplements ([facility]) Select Supplement: Addictive 1.4 - Vanilla All Meals Question: ([facility]) Select Supplement: Answer: Addictive 1.4 - Vanilla 12/10/23 1550 12/04/23 1159 Adult Diet Regular Diet effective now Question: ([facility]) Diet type Answer: Regular 12/04/23 1158 Allergies: Reviewed. IMPRESSION: Patient states she has been counting her calories every day and hitting anywhere from 9751-0295 calories every day. Patient drinks 3 [employer] 1.4 shakes and then a bowl of cheerios with sugar packetand milk almost every morning. Patient wanted to be weighed, RD weighed patient on standing scale at 123.6 lbs. Patient and spouse were very disappointed she did not gain more. Patient lost 1.5 lbs in a week. Patient states her stools are still soft, not diarrhea, does not think she needs imodium. Patient continues to be conscience of blood sugars, noting her sugars spikes a lot after eating 2 chocolate covered pretzels. Weights/Vitals Height Weight (LB) Weight (KG) Weight Method 12/03/2023 127 lb 6.4 oz 57.788 kg Standing scale 12/04/2023 5' 1 127 lb 57.607 kg 12/09/2023 125 lb 3.2 oz 56.79 kg Standing scale 12/10/2023 130 lb 4.7 oz 59.1 kg Bed scale 12/16/2023 123 lb 9.6 oz 56.065 kg Standing scale AAIM (ASPEN) MALNUTRITION ASSESSMENT: Date of completion: 11/27/2023 ASPEN/AND Malnutrition Screening: Chronic illness or injury severe Subcutaneous Fat Loss Severity: Severe Muscle Mass Loss Severity: Severe Patient Meets Criteria for Severe Malnutrition: Yes NUTRITION FOCUSED PHYSICAL EXAM: Completed. Subcutaneous Fat Loss Orbital Region - Surrounding the Eye: Hollow look Upper Arm Region - Triceps/Biceps: Some depth pinch but not ample Muscle Loss Moravian Region - Temporalis Muscle: Slight depression Clavicle Bone Region - Pectoralis Major, Deltoid, Trapezius Muscles: Protruding, prominent bone Clavicle and Acromion Bone Region - Deltoid Muscle: Shoulder to arm joint looks square Anterior Thigh and Patellar Region - Quadricep Muscle: Depression along thigh Posterior Calf Region - Gastrocnemius Muscle: Thin, minimal to no muscle definition NUTRITION DIAGNOSIS: Nutrition Diagnosis 1: Protein-Calorie Malnutrition - Severe Related to: Chronic illness/injury Evidenced by: Physical finding INTERVENTION(S): Summary: Medical food supplement, Encouragement, Meals and snacks Continue [employer] 1.4 instead of 1.0 (455 calories per bottle) Discussed she has to have 1400 calories just to maintain her wieght but up to 1700 calories to slowly gain weight Discussed calories in less sugary snacks like cheese cubes, peanut butter, and cottage cheese. GOAL(S): Promote slow and steady weight gain 1/2 to 1 pound per week MONITORING/EVALUATION: Appetite, Discharge plans, I/O, Plan of care, Labs Sylvia Trujillo, MS RDN, [facility], * Jhonny Kirby MD - 12/16/2023 10:52 AM CDT Medicine Daily Progress Note Patient: Darius Russo : 1960 (63 y.o.) Date of Admission: 11/25/2023 Date of Service: 12/16/23 SUBJECTIVE Interval Events: - Complains of increased abdominal distension this morning. Unchanged from yesterday. - Patient eating breakfast comfortably in bed. Last BM was Medium, (12/16/23 0746) Maintaining goodappetite. Awaiting surgery 12/23. - q72 labs - Dc'd poct and slide OBJECTIVE Vitals Most Recent: Vitals: 12/16/23 0730 BP: 127/69 Pulse: 95 Resp: 18 Temp: 36.6 ??C (97.9 ??F) SpO2: 98% 24 Hour Min/Max: Temp Min: 36.6 ??C (97.9 ??F) Max: 37.5 ??C (99.5 ??F) Pulse Min: 93 Max: 107 BP Min: 116/64 Max: 127/69 Resp Min: 18 Max: 18 SpO2 Min: 96 % Max: 98 % Intake/Output Intake/Output Summary (Last 24 hours) at 12/16/2023 1052 Last data filed at 12/15/2023 2100 Gross per 24 hour Intake 705 ml Output -- Net 705 ml Current Medications Scheduled Meds: Scheduled Medications Medication Dose Route Frequency ??? ciprofloxacin (CIPRO) tablet 500 mg 500 mg oral BID - special ??? enoxaparin (LOVENOX) syringe 40 mg 40 mg subcutaneous Daily-2100 ??? folic acid (FOLVITE) tablet 1 mg 1 mg oral Daily ??? insulin lispro (HumaLOG, ADMELOG) 100 unit/mL injection 0-10 Units 0-10 Units subcutaneous TID with meals ??? insulin lispro (HumaLOG, ADMELOG) 100 unit/mL injection 0-5 Units 0-5 Units subcutaneous Nightly ??? [Held by Provider] losartan (COZAAR) tablet 25 mg 25 mg oral Daily ??? metroNIDAZOLE (FLAGYL) tablet 500 mg 500 mg oral BID ??? multivitamin with folic acid 400 mcg tablet 1 tablet 1 tablet oral Daily ??? pantoprazole DR (PROTONIX) extended release tablet 40 mg 40 mg oral Daily ??? thiamine (VITAMIN B1) tablet 100 mg 100 mg oral Daily Continuous Meds: Current Facility-Administered Medications Medication Dose Route Frequency Last Admin PRN Meds: PRN Medications Medication Dose Route Frequency Last Admin ??? benzocaine-menthoL (CHLORASEPTIC) lozenge 1 lozenge 1 lozenge mouth/throat Q2H PRN 1 lozenge at1 0000 ??? benzonatate (TESSALON) capsule 100 mg 100 mg oral TID PRN 100 mg at 12/15/232031 ??? dextrose gel in packet 15 g 15 g oral Q15 Min PRN Or ??? dextrose (D10W) 10% bolus 250 mL 250 mL intravenous Q15 Min PRN ??? glucagon injection 1 mg 1 mg intramuscular Q30 Min PRN ??? ondansetron (ZOFRAN) injection 4 mg 4 mg intravenous Q4H PRN 4 mg at 12/09/23 1222 ??? phenoL (CHLORASEPTIC) 1.4 % oral spray 1 spray 1 spray mouth/throat Q4H PRN 1 spray at Physical Exam Physical Exam Constitutional: General: She is not in acute distress. HENT: Head: Normocephalic. Right Ear: External ear normal. Left Ear: External ear normal. Nose: Nose normal. Mouth/Throat: Mouth: Mucous membranes are moist. Pharynx: Oropharynx is clear. No oropharyngeal exudate. Eyes: Extraocular Movements: Extraocular movements intact. Pupils: Pupils are equal, round, and reactive to light. Cardiovascular: Rate and Rhythm: Normal rate and regular rhythm. Pulses: Normal pulses. Heart sounds: Normal heart sounds. Comments: 2+ radial pulses bilaterally. Pulmonary: Effort: Pulmonary effort is normal. Comments: CTAB in anterior randall Abdominal: General: Bowel sounds are normal. There is distension. Tenderness: There is abdominal tenderness. There is no guarding or rebound. Musculoskeletal: General: Normal range of motion. Cervical back: Normal range of motion. Skin: General: Skin is warm. Capillary Refill: Capillary refill takes less than 2 seconds. Neurological: General: No focal deficit present. Mental Status: She is alert and oriented to person, place, and time. Laboratory Results Lab Results Component Value Date GLUCOSE 127 12/16/2023 CALCIUM 8.4 (L) 12/13/2023 SODIUM 137 12/13/2023 POTASSIUM 4.5 12/13/2023 CO2 26 12/13/2023 CHLORIDE 103 12/13/2023 BUNSER 16 12/13/2023 CREATININE 0.78 12/13/2023 Lab Results Component Value Date WBC 8.7 12/13/2023 HGB 7.7 (L) 12/13/2023 HCT 25.4 (L) 12/13/2023 MCV 86.7 12/13/2023 LABPLAT 354 12/13/2023 Imaging Results XR Abdomen Ap 1 Vw Narrative: EXAMINATION: Abdomen, one view. HISTORY: 63-year-old female with abdominal distention COMPARISON: Abdominal radiograph 12/04/2023 Impression: A single view of the abdomen is submitted for evaluation. Partially imaged left pleural effusion appears similar in size to previous study. Cholecystectomy clips present. Normal bowel gas pattern. Dictated by: Yareli York MD The radiology attending physician has personally reviewed this study, and had reviewed and/or edited this written report and agrees with it. Electronically signed by: Shin King M.D. ASSESSMENT & PLAN Darius Russo is a 63 y.o. woman with relevant PMH of IBD (2022 UC, now c/f Crohn's), adnexal mass, HTN, T2DM directly admitted for expedited therapy for IBD iso progressive weight loss, found to have disseminated infectious process thought to be 2/2 bacterial translocation from contained colonicperforation. #IBD c/b multifocal infection (colon, lungs, spleen, liver) Patient was diagnosed with ulcerative colitis in 2022, since which time she has been prescribed rectal mesalamine. She has had recurrent admissions for sigmoid diverticulitis which have been managed medically; most recently, patient was started on a 4wk course of ciprofloxacin/metronidazole (11/05). 11/12 colonoscopy with cryptitis and inflammation now c/f colonic Crohn's, MRI dated same with sigmoid diverticulitis, contained perforation, rectal/sigmoid inflammation. Patient's symptoms include daily diarrhea (now improving) and profound weight loss as detailed elsewhere. She was admitted for remicade vs operative management, course c/b likely infectious process (lungs, liver, spleen) preventi ng remicade initiation. Course c/b recurrent SVT, culture neg sepsis 12/03, 12/08 suspected 2/2 transient bacterial translocation and preventing discharge prior to surgical intervention. - GI c/s, recs appreciated: colectomy - ID c/s, recs appreciated: abx as below - CRS, Business Office Representative/Onc c/s, recs appreciated: Await colectomy + LIBRA/BSO tentatively scheduled 12/23. Working on moving up date pending CRS availability - Continue ciprofloxacin 500mg PO BID, metronidazole 500mg PO BID (11/05-12/03;12/05-12/08; 12/09-); s/p vanc/zosyn (12/03-12/05), erta (12/08-12/09) #Cavitary lung lesions Patient with symptoms including cough [place] admission CT CAP11/26/23 with cavitary lung lesions and associated lymphadenopathy, not seen on CT ~1 month ago; patient also with liver/spleen and adnexal masses as below. No clear risk factors for immunosuppresionsave acute severe malnutrition. Comprehensive work-up to date negative for malignancy, vasculitis and without clear infectious pathogen, though suspect some of this work-up may be sterilized iso abx as above. - Pulm c/s, recs/intervention (BAL 11/27) appreciated - Abx as above #FTT/severe malnutrition #Acute weight loss 65lb weight loss over 4mo; suspect related to multifocal process affecting lung/liver/spleen or mass effect from her adnexal mass. Patient endorses poor appetite, early satiety. Folate/B12 normalizedwith enteral repletion. - Nutrition c/s, recs appreciated - s/p HD thiamine, thiamine 100mg PO daily - folic acid 1mg daily, MVI daily - s/p pyridoxine B6 100mg PO daily #Recurrent SVT: Patient with recurrent episodes of symptomatic SVT after BM c/b type 2 NC 12/03, suspect 2/2 transient gut translocation as above. K>4, Mg>2 #Hypocalcemia: Intermittent throughout admission. Possibly related to poor dietary intake. 11/29 25OH-VitD 39 from 10/26. #Liver/spleen iron deposition: 11/12 MRI, etiology unclear. 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 Non-FDG avid. Business Office Representative/Onc c/s as above. #HTN: hold losartan 25mg daily #T2DM: A1c 5.7%. HDSSI Code Status: Full Code Disposition: pending clinical course Best contact: Primary Emergency Contact: JEAN CLAUDE RUSSO Diet: Adult Diet Regular VTE Prophylaxis: enoxaparin 40mg SQ qhs PT: PT Recommendation/Plan: Home with family, Home with intermittent assist, No further PT indicated OT:OT Recommendation: Home with family, Home with intermittent assist, No further OT indicated Jhonny Kirby MD Resident Physician Cosigned by Parmjit Meehan MD at 12/16/2023 1:29 PM CDT Associated attestation - Parmjit Meehan MD - 12/16/2023 1:29 PM CDT I have seen and examined the patient on 12/16/23. I agree with the findings and plan of care as documented in the resident's/fellow's note. Today, I am treating the patient for colonic perforation and abscess which is in severe exacerbation, progression, or experiencing treatment side effects as evidenced by need for IV abx and surgery, as described in the note. Reviewed records from the following unique sources (external institutions or providers from different services): GI, CRS, ID. Independently interpreted CBC which shows anemia. Discussed management of abscess with residents. The patient is being intensively monitored for drug toxicity from Cipro/BECK by checking CBC, CMP. . * Vicki King MD - 12/16/2023 9:37 AM CDT Images from the original note were not included. [facility] Daily Progress Note Colorectal Surgery Surgery PATIENT NAME: Darius Russo : 1960 ADMIT DATE: 11/25/2023 6:29 PM LOS: 21 Subjective CHIEF COMPLAINT: Physical deconditioning INTERVAL HISTORY: -NAEO -Pt continues to walk and optimize caloric intake Objective MEDICATIONS: Scheduled: ciprofloxacin, 500 mg, oral, BID - special enoxaparin, 40 mg, subcutaneous, Daily-2100 folic acid, 1 mg, oral, Daily insulin lispro, 0-10 Units, subcutaneous, TID with meals insulin lispro, 0-5 Units, subcutaneous, Nightly [Held by Provider] losartan, 25 mg, oral, Daily metroNIDAZOLE, 500 mg, oral, BID multivitamin therapeutic, 1 tablet, oral, Daily pantoprazole DR, 40 mg, oral, Daily thiamine, 100 mg, oral, Daily Infusions: PRN: benzocaine-menthoL benzonatate dextrose OR dextrose glucagon ondansetron phenoL VITALS: 24hr Min/Max: Temp Min: 36.6 ??C (97.9 ??F) Max: 37.5 ??C (99.5 ??F) Pulse Min: 93 Max: 107 BP Min: 116/64 Max: 127/69 Resp Min: 18 Max: 18 SpO2 Min: 96 % Max: 98 % Most Recent: Vitals: 12/15/23200412/16/23 0013 12/16/23 0340 12/16/23 0730 BP: 125/56 123/68 127/69 BP Location: Right arm Right arm Right arm Patient Position: HOB 30 degrees HOB 30 degrees Pulse: 107 107 93 95 Resp: 18 18 18 Temp: 37.5 ??C (99.5 ??F) 37.1 ??C (98.8 ??F) 36.6 ??C (97.9 ??F) TempSrc: Oral Oral Oral SpO2: 96% 98% 98% Weight: Height: Intake/Output Summary (Last 24 hours) at 12/16/2023 0937 Last data filed at 12/15/2023 2100 Gross per 24 hour Intake 705 ml Output -- Net 705 ml PHYSICAL EXAM: General: Well nourished, comfortable Psych: alert and calm HEENT: normocephalic/atraumatic, anicteric Pulm: Normal work of breathing Cardiac: Regular rate and rhythm GI: abd soft, nondistended, nontender Neuro: ambulatory, non-focal Skin: warm and dry Musculoskeletal: no deformities LAB/ RADIOLOGY/ DIAGNOSTIC REVIEW: Chem/LFT Lab History Latest Ref Rng & Units 12/08/2023 20:30 12/09/2023 12/11/2023 12/13/2023 21:51 Labs-Chem/LFT Sodium 135 - 145 mmol/L 137 141 140 137 Creatinine 0.60 - 1.10 mg/dL 0.80 0.81 0.80 0.78 Bilirubin, total 0.1 - 1.2 mg/dL <0.2 AST 10 - 45 Units/L 25 ALT 7 - 45 Units/L 11 Alk phos 40 - 130 Units/L 83 CrCl- Actual Body Weight (Cockcroft-Gault) 63.8 62.1 65.4 67.1 Details More values are hidden. Newest values shown. Go to activity for more data. Hematology Lab History Latest Ref Rng & Units 12/08/2023 20:30 12/09/2023 12/11/2023 12/13/2023 21:51 Labs - Hematology WBC 3.8 - 9.9 K/cumm 10.0 17.9 8.2 8.7 Total Hb, POC 11.9 - 15.5 g/dL 8.4 7.3 7.3 7.7 Hct 35.6 - 45.5 % 27.6 24.2 25.3 25.4 Plt 150 - 400 K/cumm 483 413 290 354 Neutrophil abs 1.5 - 6.5 K/cumm 6.7 14.7 5.0 5.2 Lymphocytes, abs 0.8 - 3.3 K/cumm 2.3 1.9 2.1 2.4 Details More abnormal values are hidden. Newest values shown. Go to activity for more data. More values are hidden. Newest values shown. Go to activity for more data. I have reviewed the laboratory results. ASSESSMENT/ PLAN: 63 y.o. female with hx of DM, HTN, and recently diagnosed IBD (originally thought to be UC but is now more likely to be Crohn's) who has persistent colitis of her sigmoid colon with microperforation,multiple abscesses of the liver and spleen, and now new left upper lobe lung lesions, some of whichare cavitary. She is not a candidate for anti-TNF treatment in the setting of her lung lesions until etiology is determined. Pt also has a new pelvic mass that requires resection. -Continue to optimize nutrition with adequate caloric and protein intake -Continue operative planning -Continue antibiotics Vicki King MD 12/16/2023 Cosigned by Yo Perez MD at 12/16/2023 10:09 AM CDT * Jhonny Kirby MD - 12/15/2023 7:42 AM CDT Medicine Daily Progress Note Patient: Darius Russo : 1960 (63 y.o.) Date of Admission: 11/25/2023 Date of Service: 12/15/23 SUBJECTIVE Interval Events: - NAEO. Patient eating breakfast comfortably in bed. Small, (12/15/23 0850) .Maintaining good appetite. 12/08 blood cx remain with NGTD. Awaiting surgery 12/22 vs 12/23. OBJECTIVE Vitals Most Recent: Vitals: 12/15/23 0750 BP: 122/69 Pulse: 94 Resp: 18 Temp: 36.6 ??C (97.9 ??F) SpO2: 96% 24 Hour Min/Max: Temp Min: 36.6 ??C (97.9 ??F) Max: 37.3 ??C (99.1 ??F) Pulse Min: 93 Max: 103 BP Min: 111/59 Max: 132/64 Resp Min: 18 Max: 18 SpO2 Min: 96 % Max: 99 % Intake/Output No intake or output data in the 24 hours ending 12/15/23 1158 Current Medications Scheduled Meds: Scheduled Medications Medication Dose Route Frequency ??? ciprofloxacin (CIPRO) tablet 500 mg 500 mg oral BID - special ??? enoxaparin (LOVENOX) syringe 40 mg 40 mg subcutaneous Daily-2100 ??? folic acid (FOLVITE) tablet 1 mg 1 mg oral Daily ??? insulin lispro (HumaLOG, ADMELOG) 100 unit/mL injection 0-10 Units 0-10 Units subcutaneous TID with meals ??? insulin lispro (HumaLOG, ADMELOG) 100 unit/mL injection 0-5 Units 0-5 Units subcutaneous Nightly ??? [Held by Provider] losartan (COZAAR) tablet 25 mg 25 mg oral Daily ??? metroNIDAZOLE (FLAGYL) tablet 500 mg 500 mg oral BID ??? multivitamin with folic acid 400 mcg tablet 1 tablet 1 tablet oral Daily ??? pantoprazole DR (PROTONIX) extended release tablet 40 mg 40 mg oral Daily ??? thiamine (VITAMIN B1) tablet 100 mg 100 mg oral Daily Continuous Meds: Current Facility-Administered Medications Medication Dose Route Frequency Last Admin PRN Meds: PRN Medications Medication Dose Route Frequency Last Admin ??? benzocaine-menthoL (CHLORASEPTIC) lozenge 1 lozenge 1 lozenge mouth/throat Q2H PRN 1 lozenge at1 0000 ??? benzonatate (TESSALON) capsule 100 mg 100 mg oral TID PRN 100 mg at 12/12/232123 ??? dextrose gel in packet 15 g 15 g oral Q15 Min PRN Or ??? dextrose (D10W) 10% bolus 250 mL 250 mL intravenous Q15 Min PRN ??? glucagon injection 1 mg 1 mg intramuscular Q30 Min PRN ??? ondansetron (ZOFRAN) injection 4 mg 4 mg intravenous Q4H PRN 4 mg at 12/09/23 1222 ??? phenoL (CHLORASEPTIC) 1.4 % oral spray 1 spray 1 spray mouth/throat Q4H PRN 1 spray at 058 Physical Exam Physical Exam Constitutional: General: She is not in acute distress. HENT: Head: Normocephalic. Right Ear: External ear normal. Left Ear: External ear normal. Nose: Nose normal. Mouth/Throat: Mouth: Mucous membranes are moist. Pharynx: Oropharynx is clear. No oropharyngeal exudate. Eyes: Extraocular Movements: Extraocular movements intact. Pupils: Pupils are equal, round, and reactive to light. Cardiovascular: Rate and Rhythm: Normal rate and regular rhythm. Pulses: Normal pulses. Heart sounds: Normal heart sounds. Comments: 2+ radial pulses bilaterally. Pulmonary: Effort: Pulmonary effort is normal. Comments: CTAB in anterior randall Abdominal: General: Bowel sounds are normal. There is distension. Tenderness: There is abdominal tenderness. There is no guarding or rebound. Musculoskeletal: General: Normal range of motion. Cervical back: Normal range of motion. Skin: General: Skin is warm. Capillary Refill: Capillary refill takes less than 2 seconds. Neurological: General: No focal deficit present. Mental Status: She is alert and oriented to person, place, and time. Laboratory Results Lab Results Component Value Date GLUCOSE 124 12/14/2023 CALCIUM 8.4 (L) 12/13/2023 SODIUM 137 12/13/2023 POTASSIUM 4.5 12/13/2023 CO2 26 12/13/2023 CHLORIDE 103 12/13/2023 BUNSER 16 12/13/2023 CREATININE 0.78 12/13/2023 Lab Results Component Value Date WBC 8.7 12/13/2023 HGB 7.7 (L) 12/13/2023 HCT 25.4 (L) 12/13/2023 MCV 86.7 12/13/2023 LABPLAT 354 12/13/2023 Imaging Results XR Abdomen Ap 1 Vw Narrative: EXAMINATION: Abdomen, one view. HISTORY: 63-year-old female with abdominal distention COMPARISON: Abdominal radiograph 12/04/2023 Impression: A single view of the abdomen is submitted for evaluation. Partially imaged left pleural effusion appears similar in size to previous study. Cholecystectomy clips present. Normal bowel gas pattern. Dictated by: Yareli York MD The radiology attending physician has personally reviewed this study, and had reviewed and/or edited this written report and agrees with it. Electronically signed by: Shin King M.D. ASSESSMENT & PLAN Darius Russo is a 63 y.o. woman with relevant PMH of IBD (2022 UC, now c/f Crohn's), adnexal mass, HTN, T2DM directly admitted for expedited therapy for IBD iso progressive weight loss, found to have disseminated infectious process thought to be 2/2 bacterial translocation from contained colonicperforation. #IBD c/b multifocal infection (colon, lungs, spleen, liver) Patient was diagnosed with ulcerative colitis in 2022, since which time she has been prescribed rectal mesalamine. She has had recurrent admissions for sigmoid diverticulitis which have been managed medically; most recently, patient was started on a 4wk course of ciprofloxacin/metronidazole (11/05). 11/12 colonoscopy with cryptitis and inflammation now c/f colonic Crohn's, MRI dated same with sigmoid diverticulitis, contained perforation, rectal/sigmoid inflammation. Patient's symptoms include daily diarrhea (now improving) and profound weight loss as detailed elsewhere. She was admitted for remicade vs operative management, course c/b likely infectious process (lungs, liver, spleen) preventi ng remicade initiation. Course c/b recurrent SVT, culture neg sepsis 12/03, 12/08 suspected 2/2 transient bacterial translocation and preventing discharge prior to surgical intervention. - GI c/s, recs appreciated: colectomy - ID c/s, recs appreciated: abx as below - CRS, Business Office Representative/Onc c/s, recs appreciated: Await colectomy + LIBRA/BSO tentatively scheduled 12/23. Working on moving up date pending CRS availability - Continue ciprofloxacin 500mg PO BID, metronidazole 500mg PO BID (11/05-12/03;12/05-12/08; 12/09-); s/p vanc/zosyn (12/03-12/05), erta (12/08-12/09) #Cavitary lung lesions Patient with symptoms including cough [place] admission CT CAP11/26/23 with cavitary lung lesions and associated lymphadenopathy, not seen on CT ~1 month ago; patient also with liver/spleen and adnexal masses as below. No clear risk factors for immunosuppresionsave acute severe malnutrition. Comprehensive work-up to date negative for malignancy, vasculitis and without clear infectious pathogen, though suspect some of this work-up may be sterilized iso abx as above. - Pulm c/s, recs/intervention (BAL 11/27) appreciated - Abx as above #FTT/severe malnutrition #Acute weight loss 65lb weight loss over 4mo; suspect related to multifocal process affecting lung/liver/spleen or mass effect from her adnexal mass. Patient endorses poor appetite, early satiety. Folate/B12 normalizedwith enteral repletion. - Nutrition c/s, recs appreciated - s/p HD thiamine, thiamine 100mg PO daily - folic acid 1mg daily, MVI daily - s/p pyridoxine B6 100mg PO daily #Recurrent SVT: Patient with recurrent episodes of symptomatic SVT after BM c/b type 2 NC 12/03, suspect 2/2 transient gut translocation as above. K>4, Mg>2 #Hypocalcemia: Intermittent throughout admission. Possibly related to poor dietary intake. 11/29 25OH-VitD 39 from 10/26. #Liver/spleen iron deposition: 11/12 MRI, etiology unclear. 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 Non-FDG avid. Business Office Representative/Onc c/s as above. #HTN: hold losartan 25mg daily #T2DM: A1c 5.7%. HDSSI Code Status: Full Code Disposition: pending clinical course Best contact: Primary Emergency Contact: JEAN CLAUDE RUSSO Diet: Adult Diet Regular VTE Prophylaxis: enoxaparin 40mg SQ qhs PT: PT Recommendation/Plan: Home with family, Home with intermittent assist, No further PT indicated OT:OT Recommendation: Home with family, Home with intermittent assist, No further OT indicated Jhonny Kirby MD Resident Physician Cosigned by Carlito Torres MD PhD at 12/15/2023 4:02 PM CDT Associated attestation - Carlito Torres MD PhD - 12/15/2023 4:02 PM CDT Attending Documentation I have seen and examined the patient on 12/15/23. I agree with the findings and plan of care as documented in the resident's/fellow's note. and as discussed with the resident/fellow. Supplementary Attestation Today, I am treating the patient for colonic perforation c/b multifocal infection which is in severe exacerbation, progression, or experiencing treatment side effects as evidenced by chronic abx and plan for surgical intervention in near future, as described in the note. Reviewed records from the following unique sources (external institutions or providers from different services): GI on 12/14. Carlito Torres MD PhD * Vicki King MD - 12/15/2023 6:31 AM CDT Images from the original note were not included. [facility] Daily Progress Note Colorectal Surgery Surgery PATIENT NAME: Darius Russo : 1960 ADMIT DATE: 11/25/2023 6:29 PM LOS: 20 Subjective CHIEF COMPLAINT: Physical deconditioning INTERVAL HISTORY: -NAEO -Pt continues to walk and optimize caloric intake Objective MEDICATIONS: Scheduled: ciprofloxacin, 500 mg, oral, BID - special enoxaparin, 40 mg, subcutaneous, Daily-2100 folic acid, 1 mg, oral, Daily insulin lispro, 0-10 Units, subcutaneous, TID with meals insulin lispro, 0-5 Units, subcutaneous, Nightly [Held by Provider] losartan, 25 mg, oral, Daily metroNIDAZOLE, 500 mg, oral, BID multivitamin therapeutic, 1 tablet, oral, Daily pantoprazole DR, 40 mg, oral, Daily thiamine, 100 mg, oral, Daily Infusions: PRN: benzocaine-menthoL benzonatate dextrose OR dextrose glucagon ondansetron phenoL VITALS: 24hr Min/Max: Temp Min: 36.6 ??C (97.9 ??F) Max: 37.3 ??C (99.1 ??F) Pulse Min: 93 Max: 103 BP Min: 111/59 Max: 132/64 Resp Min: 18 Max: 18 SpO2 Min: 96 % Max: 99 % Most Recent: Vitals: 12/14/23 2130 12/15/23 0355 12/15/23 0750 12/15/23 1525 BP: 111/59 122/69 116/64 BP Location: Left arm Right arm Right arm Patient Position: HOB 30 degrees Pulse: 103 93 94 100 Resp: 18 18 18 Temp: 36.9 ??C (98.4 ??F) 36.6 ??C (97.9 ??F) TempSrc: Oral Oral SpO2: 99% 96% 98% Weight: Height: No intake or output data in the 24 hours ending 12/15/231936 PHYSICAL EXAM: General: Well nourished, comfortable Psych: alert and calm HEENT: normocephalic/atraumatic, anicteric Pulm: Normal work of breathing Cardiac: Regular rate and rhythm GI: abd soft, nondistended, nontender Neuro: ambulatory, non-focal Skin: warm and dry Musculoskeletal: no deformities LAB/ RADIOLOGY/ DIAGNOSTIC REVIEW: Chem/LFT Lab History Latest Ref Rng & Units 12/08/2023 20:30 12/09/2023 12/11/2023 12/13/2023 21:51 Labs-Chem/LFT Sodium 135 - 145 mmol/L 137 141 140 137 Creatinine 0.60 - 1.10 mg/dL 0.80 0.81 0.80 0.78 Bilirubin, total 0.1 - 1.2 mg/dL <0.2 AST 10 - 45 Units/L 25 ALT 7 - 45 Units/L 11 Alk phos 40 - 130 Units/L 83 CrCl- Actual Body Weight (Cockcroft-Gault) 63.8 62.1 65.4 67.1 Details More values are hidden. Newest values shown. Go to activity for more data. Hematology Lab History Latest Ref Rng & Units 12/08/2023 20:30 12/09/2023 12/11/2023 12/13/2023 21:51 Labs - Hematology WBC 3.8 - 9.9 K/cumm 10.0 17.9 8.2 8.7 Total Hb, POC 11.9 - 15.5 g/dL 8.4 7.3 7.3 7.7 Hct 35.6 - 45.5 % 27.6 24.2 25.3 25.4 Plt 150 - 400 K/cumm 483 413 290 354 Neutrophil abs 1.5 - 6.5 K/cumm 6.7 14.7 5.0 5.2 Lymphocytes, abs 0.8 - 3.3 K/cumm 2.3 1.9 2.1 2.4 Details More abnormal values are hidden. Newest values shown. Go to activity for more data. More values are hidden. Newest values shown. Go to activity for more data. I have reviewed the laboratory results. ASSESSMENT/ PLAN: 63 y.o. female with hx of DM, HTN, and recently diagnosed IBD (originally thought to be UC but is now more likely to be Crohn's) who has persistent colitis of her sigmoid colon with microperforation,multiple abscesses of the liver and spleen, and now new left upper lobe lung lesions, some of whichare cavitary. She is not a candidate for anti-TNF treatment in the setting of her lung lesions until etiology is determined. Pt also has a new pelvic mass that requires resection. -Continue to optimize nutrition with adequate caloric and protein intake -Continue operative planning -Continue antibiotics Vicki King MD 12/15/2023 Cosigned by Yo Perez MD at 12/16/2023 8:28 AM CDT * Jhonny Kirby MD - 12/14/2023 8:07 AM CDT Medicine Daily Progress Note Patient: Darius Russo : 1960 (63 y.o.) Date of Admission: 11/25/2023 Date of Service: 12/14/23 SUBJECTIVE Interval Events: - NAEO. Patient eating breakfast comfortably in bed. Reports 2 BMs. Maintaining good appetite. 12/08 blood cx remain with NGTD. OBJECTIVE Vitals Most Recent: Vitals: 12/14/23 0350 BP: 119/63 Pulse: 88 Resp: 17 Temp: 36.7 ??C (98.1 ??F) SpO2: 97% 24 Hour Min/Max: Temp Min: 36.7 ??C (98.1 ??F) Max: 36.9 ??C (98.4 ??F) Pulse Min: 88 Max: 99 BP Min: 119/63 Max: 126/63 Resp Min: 17 Max: 17 SpO2 Min: 96 % Max: 98 % Intake/Output No intake or output data in the 24 hours ending 12/14/23 0807 Current Medications Scheduled Meds: Scheduled Medications Medication Dose Route Frequency ??? ciprofloxacin (CIPRO) tablet 500 mg 500 mg oral BID - special ??? enoxaparin (LOVENOX) syringe 40 mg 40 mg subcutaneous Daily-2099 ??? folic acid (FOLVITE) tablet 1 mg 1 mg oral Daily ??? insulin lispro (HumaLOG, ADMELOG) 100 unit/mL injection 0-10 Units 0-10 Units subcutaneous TID with meals ??? insulin lispro (HumaLOG, ADMELOG) 100 unit/mL injection 0-5 Units 0-5 Units subcutaneous Nightly ??? [Held by Provider] losartan (COZAAR) tablet 25 mg 25 mg oral Daily ??? metroNIDAZOLE (FLAGYL) tablet 500 mg 500 mg oral BID ??? multivitamin with folic acid 400 mcg tablet 1 tablet 1 tablet oral Daily ??? pantoprazole DR (PROTONIX) extended release tablet 40 mg 40 mg oral Daily ??? thiamine (VITAMIN B1) tablet 100 mg 100 mg oral Daily Continuous Meds: Current Facility-Administered Medications Medication Dose Route Frequency Last Admin PRN Meds: PRN Medications Medication Dose Route Frequency Last Admin ??? acetaminophen (TYLENOL) tablet 1,000 mg 1,000 mg oral Q6H PRN ??? benzocaine-menthoL (CHLORASEPTIC) lozenge 1 lozenge 1 lozenge mouth/throat Q2H PRN 1 lozenge at1 0000 ??? benzonatate (TESSALON) capsule 100 mg 100 mg oral TID PRN 100 mg at 12/12/232123 ??? dextrose gel in packet 15 g 15 g oral Q15 Min PRN Or ??? dextrose (D10W) 10% bolus 250 mL 250 mL intravenous Q15 Min PRN ??? glucagon injection 1 mg 1 mg intramuscular Q30 Min PRN ??? guaiFENesin ER (MUCINEX) extended release tablet 1,200 mg 1,200 mg oral BID PRN 1,200 mg at 12/07/232103 ??? ondansetron (ZOFRAN) injection 4 mg 4 mg intravenous Q4H PRN 4 mg at 12/09/23 1222 ??? phenoL (CHLORASEPTIC) 1.4 % oral spray 1 spray 1 spray mouth/throat Q4H PRN 1 spray at 058 ??? polyethylene glycol (MIRALAX) packet 17 g 17 g oral Daily PRN ??? ramelteon (ROZEREM) tablet 8 mg 8 mg oral Nightly PRN Physical Exam Physical Exam Constitutional: General: She is not in acute distress. HENT: Head: Normocephalic. Right Ear: External ear normal. Left Ear: External ear normal. Nose: Nose normal. Mouth/Throat: Mouth: Mucous membranes are moist. Pharynx: Oropharynx is clear. No oropharyngeal exudate. Eyes: Extraocular Movements: Extraocular movements intact. Pupils: Pupils are equal, round, and reactive to light. Cardiovascular: Rate and Rhythm: Normal rate and regular rhythm. Pulses: Normal pulses. Heart sounds: Normal heart sounds. Comments: 2+ radial pulses bilaterally. Pulmonary: Effort: Pulmonary effort is normal. Comments: CTAB in anterior randall Abdominal: General: Bowel sounds are normal. There is distension. Tenderness: There is abdominal tenderness. There is no guarding or rebound. Musculoskeletal: General: Normal range of motion. Cervical back: Normal range of motion. Skin: General: Skin is warm. Capillary Refill: Capillary refill takes less than 2 seconds. Neurological: General: No focal deficit present. Mental Status: She is alert and oriented to person, place, and time. Laboratory Results Recent Results (from the past 24 hour(s)) POCT glucose Collection Time: 12/13/23 11:07 AM Result Value Ref Range Glucose, POC 213 (H) 70 - 199 mg/dL POCT glucose Collection Time: 12/13/23 4:31 PM Result Value Ref Range Glucose, POC 128 70 - 199 mg/dL POCT glucose Collection Time: 12/13/23 8:24 PM Result Value Ref Range Glucose, POC 163 70 - 199 mg/dL Type and screen Collection Time: 12/13/23 9:51 PM Result Value Ref Range Maira, indirect Negative ABO Rh O Positive CBC with auto differential Collection Time: 12/13/23 9:51 PM Result Value Ref Range WBC 8.7 3.8 - 9.9 K/cumm Hgb 7.7 (L) 11.9 - 15.5 g/dL Hct 25.4 (L) 35.6 - 45.5 % Plt 354 150 - 400 K/cumm MPV 10.4 9.1 - 12.3 fL RBC 2.93 (L) 3.90 - 5.20 M/cumm MCV 86.7 81.3 - 96.4 fL MCH 26.3 (L) 27.1 - 33.3 pg MCHC 30.3 (L) 32.3 - 35.7 g/dL RDW CV 19.2 (H) 11.1 - 14.9 % RDW SD 60.9 (H) 35.7 - 48.1 fL NRBC abs 0.00 0.00 - 0.01 K/cumm Magnesium Collection Time: 12/13/23 9:51 PM Result Value Ref Range Magnesium 2.0 1.4 - 2.5 mg/dL Renal function panel Collection Time: 12/13/23 9:51 PM Result Value Ref Range Sodium 137 135 - 145 mmol/L Potassium, pl 4.5 3.3 - 4.9 mmol/L Chloride 103 97 - 110 mmol/L CO2 26 22 - 32 mmol/L Anion gap 8 2 - 15 mmol/L BUN 16 6 - 25 mg/dL Creatinine 0.78 0.60 - 1.10 mg/dL Glucose 127 70 - 199 mg/dL Calcium 8.4 (L) 8.5 - 10.3 mg/dL Phosphorus, pl 3.0 2.3 - 4.5 mg/dL Albumin 2.5 (L) 3.5 - 5.0 g/dL Differential, auto Collection Time: 12/13/23 9:51 PM Result Value Ref Range Neutrophil abs 5.2 1.5 - 6.5 K/cumm Imm gran abs 0.0 0.0 - 0.1 K/cumm Lymphocyte abs 2.4 0.8 - 3.3 K/cumm Monocyte abs 0.8 0.2 - 0.8 K/cumm Eosinophil abs 0.2 0.0 - 0.5 K/cumm Basophil abs 0.1 0.0 - 0.1 K/cumm Neutrophil pct 59.8 % Imm gran pct 0.2 % Lymphocyte pct 27.8 % Monocyte pct 8.8 % Eosinophil pct 2.8 % Basophil pct 0.6 % eGFR Collection Time: 12/13/23 9:51 PM Result Value Ref Range eGFR 84 >=60 mL/min/1.73 m2 POCT glucose Collection Time: 12/14/23 7:47 AM Result Value Ref Range Glucose, POC 128 70 - 199 mg/dL Imaging Results XR Abdomen Ap 1 Vw Narrative: EXAMINATION: Abdomen, one view. HISTORY: 63-year-old female with abdominal distention COMPARISON: Abdominal radiograph 12/04/2023 Impression: A single view of the abdomen is submitted for evaluation. Partially imaged left pleural effusion appears similar in size to previous study. Cholecystectomy clips present. Normal bowel gas pattern. Dictated by: Yareli York MD The radiology attending physician has personally reviewed this study, and had reviewed and/or edited this written report and agrees with it. Electronically signed by: Shin King M.D. ASSESSMENT & PLAN Darius Russo is a 63 y.o. woman with relevant PMH of IBD (2022 UC, now c/f Crohn's), adnexal mass, HTN, T2DM directly admitted for expedited therapy for IBD iso progressive weight loss, found to have disseminated infectious process thought to be 2/2 bacterial translocation from contained colonicperforation. #IBD c/b multifocal infection (colon, lungs, spleen, liver) Patient was diagnosed with ulcerative colitis in 2022, since which time she has been prescribed rectal mesalamine. She has had recurrent admissions for sigmoid diverticulitis which have been managed medically; most recently, patient was started on a 4wk course of ciprofloxacin/metronidazole (11/05). 11/12 colonoscopy with cryptitis and inflammation now c/f colonic Crohn's, MRI dated same with sigmoid diverticulitis, contained perforation, rectal/sigmoid inflammation. Patient's symptoms include daily diarrhea (now improving) and profound weight loss as detailed elsewhere. She was admitted for remicade vs operative management, course c/b likely infectious process (lungs, liver, spleen) preventi ng remicade initiation. Course c/b recurrent SVT, culture neg sepsis 12/03, 12/08 suspected 2/2 transient bacterial translocation and preventing discharge prior to surgical intervention. - GI c/s, recs appreciated: colectomy - ID c/s, recs appreciated: abx as below - CRS, Business Office Representative/Onc c/s, recs appreciated: Await colectomy + LIBRA/BSO tentatively scheduled 12/23. Working on moving up date pending CRS availability - Continue ciprofloxacin 500mg PO BID, metronidazole 500mg PO BID (11/05-12/03;12/05-12/08; 12/09-); s/p vanc/zosyn (12/03-12/05), erta (12/08-12/09) #Cavitary lung lesions Patient with symptoms including cough [place] admission CT CAP11/26/23 with cavitary lung lesions and associated lymphadenopathy, not seen on CT ~1 month ago; patient also with liver/spleen and adnexal masses as below. No clear risk factors for immunosuppresionsave acute severe malnutrition. Comprehensive work-up to date negative for malignancy, vasculitis and without clear infectious pathogen, though suspect some of this work-up may be sterilized iso abx as above. - Pulm c/s, recs/intervention (BAL 11/27) appreciated - Abx as above #FTT/severe malnutrition #Acute weight loss 65lb weight loss over 4mo; suspect related to multifocal process affecting lung/liver/spleen or mass effect from her adnexal mass. Patient endorses poor appetite, early satiety. Folate/B12 normalizedwith enteral repletion. - Nutrition c/s, recs appreciated - s/p HD thiamine, thiamine 100mg PO daily - folic acid 1mg daily, MVI daily - s/p pyridoxine B6 100mg PO daily #Recurrent SVT: Patient with recurrent episodes of symptomatic SVT after BM c/b type 2 NC 12/03, suspect 2/2 transient gut translocation as above. K>4, Mg>2 #Hypocalcemia: Intermittent throughout admission. Possibly related to poor dietary intake. 11/29 25OH-VitD 39 from 10/26. #Liver/spleen iron deposition: 11/12 MRI, etiology unclear. 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 Non-FDG avid. Business Office Representative/Onc c/s as above. #HTN: hold losartan 25mg daily #T2DM: A1c 5.7%. HDSSI Code Status: Full Code Disposition: pending clinical course Best contact: Primary Emergency Contact: JEAN CLAUDE RUSSO Diet: Adult Diet Regular VTE Prophylaxis: enoxaparin 40mg SQ qhs PT: PT Recommendation/Plan: Home with family, Home with intermittent assist, No further PT indicated OT:OT Recommendation: Home with family, Home with intermittent assist, No further OT indicated Jhonny Kirby MD Resident Physician Cosigned by Álvaro Radford MD at 12/14/2023 6:43 PM CDT Associated attestation - Álvaro Radford MD - 12/14/2023 6:43 PM CDT Attending Documentation I have seen and examined the patient on 12/14/23. I agree with the findings and plan of care as documented in the resident's/fellow's note. and as discussed with the resident/fellow. Doing well, some increased BM frequency this AM. Ambulating. Will continue to optimize status untilsurgery. Reviewed records from the following unique sources (external institutions or providers from different services): CRS notes. Álvaro Radford MD * Eleonora Killian MD - 12/13/2023 1:24 PM CDT Images from the original note were not included. [facility] Daily Progress Note Colorectal Surgery Surgery PATIENT NAME: Darius Russo : 1960 ADMIT DATE: 11/25/2023 6:29 PM LOS: 18 Subjective CHIEF COMPLAINT: Physical deconditioning INTERVAL HISTORY: -vitals remained normal last 48 hrs -reports Bm x5, good PO Objective MEDICATIONS: Scheduled: ciprofloxacin, 500 mg, oral, BID - special enoxaparin, 40 mg, subcutaneous, Daily-2100 folic acid, 1 mg, oral, Daily insulin lispro, 0-10 Units, subcutaneous, TID with meals insulin lispro, 0-5 Units, subcutaneous, Nightly [Held by Provider] losartan, 25 mg, oral, Daily metroNIDAZOLE, 500 mg, oral, BID multivitamin therapeutic, 1 tablet, oral, Daily pantoprazole DR, 40 mg, oral, Daily thiamine, 100 mg, oral, Daily Infusions: PRN: acetaminophen benzocaine-menthoL benzonatate dextrose OR dextrose glucagon guaiFENesin ER ondansetron phenoL polyethylene glycol ramelteon VITALS: 24hr Min/Max: Temp Min: 36.5 ??C (97.7 ??F) Max: 37 ??C (98.6 ??F) Pulse Min: 89 Max: 100 BP Min: 128/67 Max: 141/78 Resp Min: 16 Max: 17 SpO2 Min: 95 % Max: 99 % Most Recent: Vitals: 12/12/23 1457 12/12/23200112/13/23 0358 12/13/23 0750 BP: 131/68 128/67 132/74 141/78 BP Location: Left arm Left arm Left arm Left arm Patient Position: HOB 30 degrees HOB 30 degrees HOB 30 degrees HOB 30 degrees Pulse: 95 100 89 90 Resp: 16 17 17 17 Temp: 36.6 ??C (97.9 ??F) 37 ??C (98.6 ??F) 36.9 ??C (98.4 ??F) 36.5 ??C (97.7 ??F) TempSrc: Oral Oral Oral Oral SpO2: 99% 97% 99% 95% Weight: Height: Intake/Output Summary (Last 24 hours) at 12/13/2023 1324 Last data filed at 12/12/20232004 Gross per 24 hour Intake 650 ml Output -- Net 650 ml PHYSICAL EXAM: General: Well nourished, comfortable Psych: alert and calm HEENT: normocephalic/atraumatic, anicteric Pulm: Normal work of breathing Cardiac: Regular rate and rhythm GI: abd soft, nondistended, nontender Neuro: ambulatory, non-focal Skin: warm and dry Musculoskeletal: no deformities LAB/ RADIOLOGY/ DIAGNOSTIC REVIEW: Chem/LFT Lab History Latest Ref Rng & Units 12/07/2023 21:16 12/08/2023 20:30 12/09/2023 12/11/2023 Labs-Chem/LFT Sodium 135 - 145 mmol/L 136 137 141 140 Creatinine 0.60 - 1.10 mg/dL 0.82 0.80 0.81 0.80 Bilirubin, total 0.1 - 1.2 mg/dL <0.2 AST 10 - 45 Units/L 25 ALT 7 - 45 Units/L 11 Alk phos 40 - 130 Units/L 83 CrCl- Actual Body Weight (Cockcroft-Gault) 62.2 63.8 62.1 65.4 Details More values are hidden. Newest values shown. Go to activity for more data. Hematology Lab History Latest Ref Rng & Units 12/07/2023 21:16 12/08/2023 20:30 12/09/2023 12/11/2023 Labs - Hematology WBC 3.8 - 9.9 K/cumm 9.7 10.0 17.9 8.2 Total Hb, POC 11.9 - 15.5 g/dL 7.8 8.4 7.3 7.3 Hct 35.6 - 45.5 % 26.1 27.6 24.2 25.3 Plt 150 - 400 K/cumm 487 483 413 290 Neutrophil abs 1.5 - 6.5 K/cumm 6.5 6.7 14.7 5.0 Lymphocytes, abs 0.8 - 3.3 K/cumm 2.3 2.3 1.9 2.1 Details More abnormal values are hidden. Newest values shown. Go to activity for more data. More values are hidden. Newest values shown. Go to activity for more data. I have reviewed the laboratory results. ASSESSMENT/ PLAN: 63 y.o. female with hx of DM, HTN, and recently diagnosed IBD (originally thought to be UC but is now more likely to be Crohn's) who has persistent colitis of her sigmoid colon with microperforation,multiple abscesses of the liver and spleen, and now new left upper lobe lung lesions, some of whichare cavitary. She is not a candidate for anti-TNF treatment in the setting of her lung lesions until etiology is determined. Pt also has a new pelvic mass that requires resection. -Continue to optimize nutrition with adequate caloric and protein intake -Continue operative planning -Continue antibiotics Eleonora Mendez MD 12/13/2023 Cosigned by Jose E Hernandez MD at 12/13/2023 4:53 PM CDT Associated attestation - Jose E Hernandez MD - 12/13/2023 4:53 PM CDT I have spoken to the resident about the patient on 12/13/23. I agree with the plan of care as documented in the resident's note. Jose E Hernandez MD software development manager [facility] in [place] Office: * María Graham MD PhD - 12/13/2023 12:21 PM CDT Medicine Daily Progress Note Patient: Darius Russo : 1960 (63 y.o.) Date of Admission: 11/25/2023 Date of Service: 12/13/23 SUBJECTIVE Interval Events: - NAEO. 12/08 blood cx remain with NGTD. Patient doing well this AM, no concerns. OBJECTIVE Vitals Most Recent: Vitals: 12/13/23 0750 BP: 141/78 Pulse: 90 Resp: 17 Temp: 36.5 ??C (97.7 ??F) SpO2: 95% 24 Hour Min/Max: Temp Min: 36.5 ??C (97.7 ??F) Max: 37 ??C (98.6 ??F) Pulse Min: 89 Max: 100 BP Min: 128/67 Max: 141/78 Resp Min: 16 Max: 17 SpO2 Min: 95 % Max: 99 % Intake/Output Intake/Output Summary (Last 24 hours) at 12/13/2023 1221 Last data filed at 12/12/20232004 Gross per 24 hour Intake 650 ml Output -- Net 650 ml Current Medications Scheduled Meds: Scheduled Medications Medication Dose Route Frequency ??? ciprofloxacin (CIPRO) tablet 500 mg 500 mg oral BID - special ??? enoxaparin (LOVENOX) syringe 40 mg 40 mg subcutaneous Daily-2100 ??? folic acid (FOLVITE) tablet 1 mg 1 mg oral Daily ??? insulin lispro (HumaLOG, ADMELOG) 100 unit/mL injection 0-10 Units 0-10 Units subcutaneous TID with meals ??? insulin lispro (HumaLOG, ADMELOG) 100 unit/mL injection 0-5 Units 0-5 Units subcutaneous Nightly ??? [Held by Provider] losartan (COZAAR) tablet 25 mg 25 mg oral Daily ??? metroNIDAZOLE (FLAGYL) tablet 500 mg 500 mg oral BID ??? multivitamin with folic acid 400 mcg tablet 1 tablet 1 tablet oral Daily ??? pantoprazole DR (PROTONIX) extended release tablet 40 mg 40 mg oral Daily ??? thiamine (VITAMIN B1) tablet 100 mg 100 mg oral Daily Continuous Meds: Current Facility-Administered Medications Medication Dose Route Frequency Last Admin PRN Meds: PRN Medications Medication Dose Route Frequency Last Admin ??? acetaminophen (TYLENOL) tablet 1,000 mg 1,000 mg oral Q6H PRN ??? benzocaine-menthoL (CHLORASEPTIC) lozenge 1 lozenge 1 lozenge mouth/throat Q2H PRN 1 lozenge at1 0000 ??? benzonatate (TESSALON) capsule 100 mg 100 mg oral TID PRN 100 mg at 12/12/232123 ??? dextrose gel in packet 15 g 15 g oral Q15 Min PRN Or ??? dextrose (D10W) 10% bolus 250 mL 250 mL intravenous Q15 Min PRN ??? glucagon injection 1 mg 1 mg intramuscular Q30 Min PRN ??? guaiFENesin ER (MUCINEX) extended release tablet 1,200 mg 1,200 mg oral BID PRN 1,200 mg at 12/07/232103 ??? ondansetron (ZOFRAN) injection 4 mg 4 mg intravenous Q4H PRN 4 mg at 12/09/23 1222 ??? phenoL (CHLORASEPTIC) 1.4 % oral spray 1 spray 1 spray mouth/throat Q4H PRN 1 spray at ??? polyethylene glycol (MIRALAX) packet 17 g 17 g oral Daily PRN ??? ramelteon (ROZEREM) tablet 8 mg 8 mg oral Nightly PRN Physical Exam Physical Exam Constitutional: General: She is not in acute distress. HENT: Head: Normocephalic. Right Ear: External ear normal. Left Ear: External ear normal. Nose: Nose normal. Mouth/Throat: Mouth: Mucous membranes are moist. Pharynx: Oropharynx is clear. No oropharyngeal exudate. Eyes: Extraocular Movements: Extraocular movements intact. Pupils: Pupils are equal, round, and reactive to light. Cardiovascular: Rate and Rhythm: Normal rate and regular rhythm. Pulses: Normal pulses. Heart sounds: Normal heart sounds. Comments: 2+ radial pulses bilaterally. Pulmonary: Effort: Pulmonary effort is normal. Comments: CTAB in anterior randall Abdominal: General: Bowel sounds are normal. There is distension. Tenderness: There is abdominal tenderness. There is no guarding or rebound. Musculoskeletal: General: Normal range of motion. Cervical back: Normal range of motion. Skin: General: Skin is warm. Capillary Refill: Capillary refill takes less than 2 seconds. Neurological: General: No focal deficit present. Mental Status: She is alert and oriented to person, place, and time. Laboratory Results Recent Results (from the past 24 hour(s)) POCT glucose Collection Time: 12/12/23 5:09 PM Result Value Ref Range Glucose, POC 181 70 - 199 mg/dL POCT glucose Collection Time: 12/12/23 7:59 PM Result Value Ref Range Glucose, POC 149 70 - 199 mg/dL POCT glucose Collection Time: 12/13/23 7:48 AM Result Value Ref Range Glucose, POC 121 70 - 199 mg/dL POCT glucose Collection Time: 12/13/23 11:07 AM Result Value Ref Range Glucose, POC 213 (H) 70 - 199 mg/dL Imaging Results XR Abdomen Ap 1 Vw Narrative: EXAMINATION: Abdomen, one view. HISTORY: 63-year-old female with abdominal distention COMPARISON: Abdominal radiograph 12/04/2023 Impression: A single view of the abdomen is submitted for evaluation. Partially imaged left pleural effusion appears similar in size to previous study. Cholecystectomy clips present. Normal bowel gas pattern. Dictated by: Yareli York MD The radiology attending physician has personally reviewed this study, and had reviewed and/or edited this written report and agrees with it. Electronically signed by: Shin King M.D. ASSESSMENT & PLAN Darius Russo is a 63 y.o. woman with relevant PMH of IBD (2022 UC, now c/f Crohn's), adnexal mass, HTN, T2DM directly admitted for expedited therapy for IBD iso progressive weight loss, found to have disseminated infectious process thought to be 2/2 bacterial translocation from contained colonicperforation. #IBD c/b multifocal infection (colon, lungs, spleen, liver) Patient was diagnosed with ulcerative colitis in 2022, since which time she has been prescribed rectal mesalamine. She has had recurrent admissions for sigmoid diverticulitis which have been managed medically; most recently, patient was started on a 4wk course of ciprofloxacin/metronidazole (11/05). 11/12 colonoscopy with cryptitis and inflammation now c/f colonic Crohn's, MRI dated same with sigmoid diverticulitis, contained perforation, rectal/sigmoid inflammation. Patient's symptoms include daily diarrhea (now improving) and profound weight loss as detailed elsewhere. She was admitted for remicade vs operative management, course c/b likely infectious process (lungs, liver, spleen) preventi ng remicade initiation. Course c/b recurrent SVT, culture neg sepsis 12/03, 12/08 suspected 2/2 transient bacterial translocation and preventing discharge prior to surgical intervention. - GI c/s, recs appreciated: colectomy - ID c/s, recs appreciated: abx as below - CRS, Business Office Representative/Onc c/s, recs appreciated: Await colectomy + LIBRA/BSO tentatively scheduled 12/23. Working on moving up date pending CRS availability - Continue ciprofloxacin 500mg PO BID, metronidazole 500mg PO BID (11/05-12/03;12/05-12/08; 12/09-); s/p vanc/zosyn (12/03-12/05), erta (12/08-12/09) #Cavitary lung lesions Patient with symptoms including cough and [place]; admission CT CAP11/26/23 with cavitary lung lesions and associated lymphadenopathy, not seen on CT ~1 month ago; patient also with liver/spleen and adnexal masses as below. No clear risk factors for immunosuppresionsave acute severe malnutrition. Comprehensive work-up to date negative for malignancy, vasculitis and without clear infectious pathogen, though suspect some of this work-up may be sterilized iso abx as above. - Pulm c/s, recs/intervention (BAL 11/27) appreciated - Abx as above #FTT/severe malnutrition #Acute weight loss 65lb weight loss over 4mo; suspect related to multifocal process affecting lung/liver/spleen or mass effect from her adnexal mass. Patient endorses poor appetite, early satiety. Folate/B12 normalizedwith enteral repletion. - Nutrition c/s, recs appreciated - s/p HD thiamine, thiamine 100mg PO daily - folic acid 1mg daily, MVI daily - s/p pyridoxine B6 100mg PO daily #Recurrent SVT: Patient with recurrent episodes of symptomatic SVT after BM c/b type 2 NC 12/03, suspect 2/2 transient gut translocation as above. K>4, Mg>2 #Hypocalcemia: Intermittent throughout admission. Possibly related to poor dietary intake. 11/29 25OH-VitD 39 from 10/26. #Liver/spleen iron deposition: 11/12 MRI, etiology unclear. 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 Non-FDG avid. Business Office Representative/Onc c/s as above. #HTN: hold losartan 25mg daily #T2DM: A1c 5.7%. HDSSI Code Status: Full Code Disposition: pending clinical course Best contact: Primary Emergency Contact: JEAN CLAUDE RUSSO Diet: Adult Diet Regular VTE Prophylaxis: enoxaparin 40mg SQ qhs PT: PT Recommendation/Plan: Home with family, Home with intermittent assist, No further PT indicated OT:OT Recommendation: Home with family, Home with intermittent assist, No further OT indicated María Graham MD PhD Resident Physician Cosigned by Álvaro Radford MD at 12/13/2023 12:47 PM CDT Associated attestation - Álvaro Radford MD - 12/13/2023 12:47 PM CDT Attending Documentation I have seen and examined the patient on 12/13/23. I agree with the findings and plan of care as documented in the resident's/fellow's note. and as discussed with the resident/fellow. Álvaro Radford MD * Kali Hua Jr., MD - 12/12/2023 12:16 PM CDT Images from the original note were not included. [facility] Daily Progress Note Colorectal Surgery Surgery PATIENT NAME: Darius Russo : 1960 ADMIT DATE: 11/25/2023 6:29 PM LOS: 17 Subjective CHIEF COMPLAINT: Physical deconditioning INTERVAL HISTORY: -NAEO, AFVSS -No episodes of tachycardia, fevers, or hypotension over last 24h -Continues to have BM and tolerating PO Objective MEDICATIONS: Scheduled: ciprofloxacin, 500 mg, oral, BID - special enoxaparin, 40 mg, subcutaneous, Daily-2100 folic acid, 1 mg, oral, Daily insulin lispro, 0-10 Units, subcutaneous, TID with meals insulin lispro, 0-5 Units, subcutaneous, Nightly [Held by Provider] losartan, 25 mg, oral, Daily metroNIDAZOLE, 500 mg, oral, BID multivitamin therapeutic, 1 tablet, oral, Daily pantoprazole DR, 40 mg, oral, Daily thiamine, 100 mg, oral, Daily Infusions: PRN: acetaminophen benzocaine-menthoL benzonatate dextrose OR dextrose glucagon guaiFENesin ER ondansetron phenoL polyethylene glycol ramelteon VITALS: 24hr Min/Max: Temp Min: 36.4 ??C (97.5 ??F) Max: 36.6 ??C (97.9 ??F) Pulse Min: 92 Max: 97 BP Min: 131/68 Max: 133/70 Resp Min: 16 Max: 18 SpO2 Min: 96 % Max: 99 % Most Recent: Vitals: 12/11/23 2100 12/12/23 0237 12/12/23 0727 12/12/23 1457 BP: 133/70 131/74 131/68 BP Location: Left arm Left arm Left arm Patient Position: HOB 30 degrees HOB 30 degrees HOB 30 degrees Pulse: 97 92 94 95 Resp: 18 18 16 Temp: 36.5 ??C (97.7 ??F) 36.6 ??C (97.9 ??F) 36.6 ??C (97.9 ??F) TempSrc: Oral Oral Oral SpO2: 98% 96% 99% Weight: Height: Intake/Output Summary (Last 24 hours) at 12/12/2023 1704 Last data filed at 12/11/2023 2100 Gross per 24 hour Intake 100 ml Output -- Net 100 ml PHYSICAL EXAM: General: Well nourished, comfortable Psych: alert and calm HEENT: normocephalic/atraumatic, anicteric Pulm: Normal work of breathing Cardiac: Regular rate and rhythm GI: abd soft, mildly distended, mildly tender Neuro: ambulatory, non-focal Skin: warm and dry Musculoskeletal: no deformities LAB/ RADIOLOGY/ DIAGNOSTIC REVIEW: Chem/LFT Lab History Latest Ref Rng & Units 12/07/2023 21:16 12/08/2023 20:30 12/09/2023 12/11/2023 Labs-Chem/LFT Sodium 135 - 145 mmol/L 136 137 141 140 Creatinine 0.60 - 1.10 mg/dL 0.82 0.80 0.81 0.80 Bilirubin, total 0.1 - 1.2 mg/dL <0.2 AST 10 - 45 Units/L 25 ALT 7 - 45 Units/L 11 Alk phos 40 - 130 Units/L 83 CrCl- Actual Body Weight (Cockcroft-Gault) 62.2 63.8 62.1 65.4 Details More values are hidden. Newest values shown. Go to activity for more data. Hematology Lab History Latest Ref Rng & Units 12/07/2023 21:16 12/08/2023 20:30 12/09/2023 12/11/2023 Labs - Hematology WBC 3.8 - 9.9 K/cumm 9.7 10.0 17.9 8.2 Total Hb, POC 11.9 - 15.5 g/dL 7.8 8.4 7.3 7.3 Hct 35.6 - 45.5 % 26.1 27.6 24.2 25.3 Plt 150 - 400 K/cumm 487 483 413 290 Neutrophil abs 1.5 - 6.5 K/cumm 6.5 6.7 14.7 5.0 Lymphocytes, abs 0.8 - 3.3 K/cumm 2.3 2.3 1.9 2.1 Details More abnormal values are hidden. Newest values shown. Go to activity for more data. More values are hidden. Newest values shown. Go to activity for more data. I have reviewed the laboratory results. ASSESSMENT/ PLAN: 63 y.o. female with hx of DM, HTN, and recently diagnosed IBD (originally thought to be UC but is now more likely to be Crohn's) who has persistent colitis of her sigmoid colon with microperforation,multiple abscesses of the liver and spleen, and now new left upper lobe lung lesions, some of whichare cavitary. She is not a candidate for anti-TNF treatment in the setting of her lung lesions until etiology is determined. Pt also has a new pelvic mass that requires resection. -Continue to optimize nutrition with adequate caloric and protein intake -Continue operative planning -Continue antibiotics Kali Hua Jr., MD 12/12/2023 Cosigned by Yo Perez MD at 12/13/2023 11:19 AM CDT * Jhonny Kirby MD - 12/12/2023 8:18 AM CDT Medicine Daily Progress Note Patient: Darius Russo : 1960 (63 y.o.) Date of Admission: 11/25/2023 Date of Service: 12/12/23 63 year old female, hx of IBD (dx in 2022 as UC now more likely Crohn's), HTN, T2DM, adnexal cyst, admitted for weight loss (65lbs in a few months). 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 Managed initially with zosyn and then cipro/flagyl, improvement of microabscesses, has had intermittent episodes of transient bacteremia (fever, leukocytosis, tachycardia), 2x episode while inpatient. SUBJECTIVE Interval Events: -Overnight, HDS -Prelim cultures remain NGTD, hgb 7.2, Hgb 7.3 (7.2) WBC 8.2 (10.2) -Resuming previous antibiotic regimen of cipro and flagyl. ID aware -Collaborating with consult teams about hospital course given 2x unsuccessful attempts to dischargepatient. OBJECTIVE Vitals Most Recent: Vitals: 12/12/23 0727 BP: 131/74 Pulse: 94 Resp: 18 Temp: 36.6 ??C (97.9 ??F) SpO2: 96% 24 Hour Min/Max: Temp Min: 36.4 ??C (97.5 ??F) Max: 36.6 ??C (97.9 ??F) Pulse Min: 88 Max: 97 BP Min: 116/59 Max: 133/70 Resp Min: 18 Max: 18 SpO2 Min: 96 % Max: 99 % Intake/Output Intake/Output Summary (Last 24 hours) at 12/12/2023 1158 Last data filed at 12/11/2023 2100 Gross per 24 hour Intake 100 ml Output -- Net 100 ml Current Medications Scheduled Meds: Scheduled Medications Medication Dose Route Frequency ??? ciprofloxacin (CIPRO) tablet 500 mg 500 mg oral BID - special ??? enoxaparin (LOVENOX) syringe 40 mg 40 mg subcutaneous Daily-2100 ??? folic acid (FOLVITE) tablet 1 mg 1 mg oral Daily ??? insulin lispro (HumaLOG, ADMELOG) 100 unit/mL injection 0-10 Units 0-10 Units subcutaneous TID with meals ??? insulin lispro (HumaLOG, ADMELOG) 100 unit/mL injection 0-5 Units 0-5 Units subcutaneous Nightly ??? [Held by Provider] losartan (COZAAR) tablet 25 mg 25 mg oral Daily ??? metroNIDAZOLE (FLAGYL) tablet 500 mg 500 mg oral BID ??? multivitamin with folic acid 400 mcg tablet 1 tablet 1 tablet oral Daily ??? pantoprazole DR (PROTONIX) extended release tablet 40 mg 40 mg oral Daily ??? thiamine (VITAMIN B1) tablet 100 mg 100 mg oral Daily Continuous Meds: Current Facility-Administered Medications Medication Dose Route Frequency Last Admin PRN Meds: PRN Medications Medication Dose Route Frequency Last Admin ??? acetaminophen (TYLENOL) tablet 1,000 mg 1,000 mg oral Q6H PRN ? ? al & mag hydroxide cawmrjcgqfz-afekkvrinqgixzq-uhptpuaes-nystatin (MAGIC MOUTHWASH) oral suspension 1-1-1-1 15 mL 15 mL swish & spit Q8H PRN 15 mL at 12/07/23 1719 ??? benzocaine-menthoL (CHLORASEPTIC) lozenge 1 lozenge 1 lozenge mouth/throat Q2H PRN 1 lozenge at1 0000 ??? benzonatate (TESSALON) capsule 100 mg 100 mg oral TID PRN 100 mg at 12/10/232002 ??? dextrose gel in packet 15 g 15 g oral Q15 Min PRN Or ??? dextrose (D10W) 10% bolus 250 mL 250 mL intravenous Q15 Min PRN ??? glucagon injection 1 mg 1 mg intramuscular Q30 Min PRN ??? guaiFENesin ER (MUCINEX) extended release tablet 1,200 mg 1,200 mg oral BID PRN 1,200 mg at 12/07/232103 ??? ondansetron (ZOFRAN) injection 4 mg 4 mg intravenous Q4H PRN 4 mg at 12/09/23 1222 ??? phenoL (CHLORASEPTIC) 1.4 % oral spray 1 spray 1 spray mouth/throat Q4H PRN 1 spray at ??? polyethylene glycol (MIRALAX) packet 17 g 17 g oral Daily PRN ??? ramelteon (ROZEREM) tablet 8 mg 8 mg oral Nightly PRN Physical Exam Physical Exam Constitutional: General: She is not in acute distress. HENT: Head: Normocephalic. Right Ear: External ear normal. Left Ear: External ear normal. Nose: Nose normal. Mouth/Throat: Mouth: Mucous membranes are moist. Pharynx: Oropharynx is clear. No oropharyngeal exudate. Eyes: Pupils: Pupils are equal, round, and reactive to light. Cardiovascular: Rate and Rhythm: Normal rate and regular rhythm. Pulses: Normal pulses. Heart sounds: Normal heart sounds. Pulmonary: Effort: Pulmonary effort is normal. Abdominal: General: Bowel sounds are normal. There is distension. Tenderness: There is abdominal tenderness. Musculoskeletal: General: Normal range of motion. Cervical back: Normal range of motion. Skin: General: Skin is warm. Capillary Refill: Capillary refill takes less than 2 seconds. Neurological: General: No focal deficit present. Mental Status: She is alert and oriented to person, place, and time. Laboratory Results Recent Results (from the past 24 hour(s)) POCT glucose Collection Time: 12/11/23 4:59 PM Result Value Ref Range Glucose, POC 95 70 - 199 mg/dL POCT glucose Collection Time: 12/11/23 9:48 PM Result Value Ref Range Glucose, POC 181 70 - 199 mg/dL CBC with auto differential Collection Time: 12/11/23 10:15 PM Result Value Ref Range WBC 8.2 3.8 - 9.9 K/cumm Hgb 7.3 (L) 11.9 - 15.5 g/dL Hct 25.3 (L) 35.6 - 45.5 % Plt 290 150 - 400 K/cumm MPV 10.8 9.1 - 12.3 fL RBC 2.90 (L) 3.90 - 5.20 M/cumm MCV 87.2 81.3 - 96.4 fL MCH 25.2 (L) 27.1 - 33.3 pg MCHC 28.9 (L) 32.3 - 35.7 g/dL RDW CV 19.1 (H) 11.1 - 14.9 % RDW SD 61.1 (H) 35.7 - 48.1 fL NRBC abs 0.00 0.00 - 0.01 K/cumm Renal function panel Collection Time: 12/11/23 10:15 PM Result Value Ref Range Sodium 140 135 - 145 mmol/L Potassium, pl 4.4 3.3 - 4.9 mmol/L Chloride 103 97 - 110 mmol/L CO2 28 22 - 32 mmol/L Anion gap 9 2 - 15 mmol/L BUN 13 6 - 25 mg/dL Creatinine 0.80 0.60 - 1.10 mg/dL Glucose 161 70 - 199 mg/dL Calcium 8.2 (L) 8.5 - 10.3 mg/dL Phosphorus, pl 3.0 2.3 - 4.5 mg/dL Albumin 2.8 (L) 3.5 - 5.0 g/dL Magnesium Collection Time: 12/11/23 10:15 PM Result Value Ref Range Magnesium 2.0 1.4 - 2.5 mg/dL Differential, auto Collection Time: 12/11/23 10:15 PM Result Value Ref Range Neutrophil abs 5.0 1.5 - 6.5 K/cumm Imm gran abs 0.0 0.0 - 0.1 K/cumm Lymphocyte abs 2.1 0.8 - 3.3 K/cumm Monocyte abs 0.7 0.2 - 0.8 K/cumm Eosinophil abs 0.3 0.0 - 0.5 K/cumm Basophil abs 0.1 0.0 - 0.1 K/cumm Neutrophil pct 61.1 % Imm gran pct 0.5 % Lymphocyte pct 25.9 % Monocyte pct 8.7 % Eosinophil pct 3.2 % Basophil pct 0.6 % eGFR Collection Time: 12/11/23 10:15 PM Result Value Ref Range eGFR 82 >=60 mL/min/1.73 m2 Hepatic function panel Collection Time: 12/11/23 10:15 PM Result Value Ref Range Bilirubin, total <0.2 0.1 - 1.2 mg/dL Bilirubin, direct <0.2 0.1 - 0.3 mg/dL Protein, pl 6.8 6.5 - 8.5 g/dL Alk phos 83 40 - 130 Units/L ALT 11 7 - 45 Units/L AST 25 10 - 45 Units/L POCT glucose Collection Time: 12/12/23 7:24 AM Result Value Ref Range Glucose, POC 114 70 - 199 mg/dL POCT glucose Collection Time: 12/12/23 11:19 AM Result Value Ref Range Glucose, POC 206 (H) 70 - 199 mg/dL Glucose comment 1 Glu2: RN/ Notified Imaging Results XR Abdomen Ap 1 Vw Narrative: EXAMINATION: Abdomen, one view. HISTORY: 63-year-old female with abdominal distention COMPARISON: Abdominal radiograph 12/04/2023 Impression: A single view of the abdomen is submitted for evaluation. Partially imaged left pleural effusion appears similar in size to previous study. Cholecystectomy clips present. Normal bowel gas pattern. Dictated by: Yareli York MD The radiology attending physician has personally reviewed this study, and had reviewed and/or edited this written report and agrees with it. Electronically signed by: Shin King M.D. Path Results: Sections show alveolated lung parenchyma with widen septae, increased interstitial inflammatory infiltration, type II pneumonocyte hyperplasia, increased alveolar foamy macrophages and rare microthrombi. Bronchiolitis with predominant chronic inflammation is also noted. We do not see definitive evid ence of vasculitis/endotheliolitis, viral cytopathic changes, granulomatous inflammation, necrosis or malignancy. Special stains for GMS, AFB, and trichrome were performed with proper controls. GMS and AFB stains show no fungal organisms or acid-fast bacteria. The trichrome stain shows no significant increase of interstitial fibrosis. Overall the findings are those of organizing lung injury, with the differential diagnosis includinginfectious etiology, autoimmune, or drug-induced. Correlation with imaging findings and microbiology study is strongly recommended. ASSESSMENT & PLAN Darius Russo is a 63 y.o. woman with relevant PMH of IBD (2022 UC, now c/f Crohn's), adnexal mass, HTN, T2DM directly admitted for expedited therapy for IBD iso progressive weight loss, found to have pulmonary lesions concerning for infectious vs malignancy. #SVT episodes #Concern for transient bacteremia vs sepsis iso worsening perforation 12/03: Patient developed SVT with acute abdominal pain, and subsequently fever and hypotension withMAPs in the 50s, this occurred after a BM. Suspect possible transient bacteremia (?gut source). Given tenuous clinical status, treated as sepsis. Discussed pt with GI, given recent normal imaging, reassuring exam during presentation yesterday and today, improving/stable lab findings, dx is mainly concerning for worsening microperforation vs transient bacteremia. In setting of hx of sepsis with microperforation, continue on broad spectrum pending clinical improvement/blood culture findings. For episode of leukocytosis, pt started on vanc zosyn without bacterial culture growth x24h. Patient's status resolved and Abx deescalated to original cipro flagyl given bcx ngtd x48h -12/08 Patient developed very similar episode as above (we had previously planned to discharge on this day). In AM she had multiple formed, nonbloody BMs with cramping afterwards. She subsequently developed rigors, tachycardia (160s), hypertension (sbps to 160). Patient was anxious and pale. EKG with artifact, likely ST vs SVT. ACT nurse called to bedside. IVF given, 2.5 mg IV metop x2. Heart rate slowly decreased to 120s. POC lactate 4.9 (repeat 4 hours later 1.2), WBC of 16.5. During this episode she had 3 bouts of bilious emesis. Abd was mildly tender, no guarding or rebound, largely unchanged from before. Her status improved following IVF and APAP. She received 2 doses of ertapenem. Once patient stabilized we switched back to previously tolerated PO antibiotics. Suspect possible transient bacteremia (gut source) vs sepsis - vancomycin 15mg/kg q12h, piperacillin-tazobactam 4.5g q6h (12/03-) - ciprofloxacin 500mg BID , metronidazole 500mg BID (11/05-12/03, 12/05-12/08, 12/09 -) - Ertapenem q24hrs (12/08-12-09) #Throat/referred ear pain - No exudates, CENTOR of 1, present since bronchoscopy, improving with PRN APAP. IMproved with magic mouthwash (swallowed), will monitor for improvement. - order magic mouthwash q8h PRN, throat lozenges #Type 2 NC: 12/03 Trops 5>770>1061>1176 after acute SVT 12/03. Suspect related to demand ischemia. Repeat trops in AM down to 500, EKG unremarkable #IBD c/b recurrent diverticulitis, contained colonic perforation #splenic/liver abscesses, ?seeding from microperforation Patient was diagnosed with ulcerative colitis in 2022, since which time she has been prescribed rectal mesalamine. She has had recurrent admissions for sigmoid diverticulitis which have been managed medically; most recently, patient was started on a 4wk course of ciprofloxacin/metronidazole (11/05). 11/12 colonoscopy with cryptitis and inflammation now c/f colonic Crohn's, MRI dated same with sigmoid diverticulitis, contained perforation, rectal/sigmoid inflammation. Patient's symptoms include daily diarrhea (now improving) and profound weight loss as detailed elsewhere. She was admitted for remicade vs operative management, course c/b likely infectious process (lungs, liver, spleen) preventi ng remicade initiation. GI recs to consult CRS and secondary school registrar for operative intervention in setting of pending infectious workup. Per CRS, plan for TAC+cyst resection on 12/23. Given 2x unsuccessful attemptsto discharge patient, will reach out to CRS to discuss moving up her surgery. recent SVT/septic picture, will continue to monitor in hospital. - GI c/s - ID c/s, recs appreciated: abx, work-up as above - CRS c/s, rec TAC + cyst resection 12/23 - Business Office Representative c/s, will provide coverage for above surgery #Cavitary lung lesions s/p bronch with BAL/biopsy Patient with symptoms including cough [place]; admission CT CAP11/26/23 with cavitary lung lesions and associated lymphadenopathy, not seen on CT ~1 month ago; patient also with liver/spleen and adnexal masses as below. No clear risk factors for immunosuppresionsave acute severe malnutrition. Differential is broad and includes infectious, autoimmune, and malignant processes. Diagnostic work-up in addition to imaging includes: BAL 11/27 with biopsy (negative). Blood cx (mold, fungal, bacteria) NGTD; CrAg, Blasto EIA, DFA, BAL AFB, galactomannan negative. Bronch path results suggest organizing lung injury, no evidence of infection, cytology is negative for infection/malignancy. Will need recommendations from ID/pulm re follow-up management/observation of lung lesions. ANCA vasculitis workup unremarkable. - ID c/s, appreciate following - Pulm c/s, recs/intervention (BAL 11/27) appreciated: disfavor malignancy - Abx as above #FTT/severe malnutrition #Acute weight loss 65lb weight loss over 4mo; suspect related to multifocal process affecting lung/liver/spleen or mass effect from her adnexal mass. Patient endorses poor appetite, early satiety. Repeat folate/b12 labs after replenishment wnl - Nutrition c/s, recs appreciated - s/p HD thiamine, thiamine 100mg PO daily - folic acid 1mg daily, MVI daily - pyridoxine B6 100mg PO daily, dc'd #Liver/spleen abscesses: Reproduced on 11/12 MRI, too small to drain and stable from prior imaging.Improved on subsequent CT CAP. Liver also with diffuse iron deposition. Abx as above. #Adnexal mass: 11/12 MRI, 16.4 x 11.6 x 14.2cm multiseptate cystic R ovary mass. Business Office Representative onc c/s, suspect benign, per pulm, concern for possible malignancy in lungs, plan to reach out to secondary school registrar re issues. #Hypocalcemia: Intermittent throughout admission. Possibly related to poor dietary intake. 11/29 25OH-VitD 39 from 10/26. #HTN: restart losartan 25mg daily #T2DM: A1c 5.7%. HDSSI. Code Status: Full Code Disposition: pending clinical course Best contact: Primary Emergency Contact: JEAN CLAUDE RUSSO Diet: Adult Diet Regular VTE Prophylaxis: enoxaparin 40mg SQ qhs PT: PT Recommendation/Plan: Home with family, Home with intermittent assist, No further PT indicated OT:OT Recommendation: Home with family, Home with intermittent assist, No further OT indicated Jhonny Kirby MD Resident Physician Cosigned by Álvaro Radford MD at 12/13/2023 10:13 AM CDT Associated attestation - Álvaro Radford MD - 12/13/2023 10:13 AM CDT Attending Documentation I have seen and examined the patient on 12/12/2023. I agree with the findings and plan of care as documented in the resident's/fellow's note. and as discussed with the resident/fellow. Clinically stable as she has been between acute episodes, reduce labs to q48. Supplementary Attestation Today, I am treating the patient for sigmoid perforation which is in severe exacerbation, progression, or experiencing treatment side effects as evidenced by intermittent sepsis, as described in the note. Reviewed records from the following unique sources (external institutions or providers from different services): CRS notes, ID notes. Discussed mgmt of sigmoid perforation with CRS The patient is being intensively monitored for drug toxicity from abx by checking CBC, CMP, Qtc. Álvaro Radford MD * Vicki King MD - 12/11/2023 8:28 AM CDT Images from the original note were not included. [facility] Daily Progress Note Colorectal Surgery Surgery PATIENT NAME: Darius Russo : 1960 ADMIT DATE: 11/25/2023 6:29 PM LOS: 16 Subjective CHIEF COMPLAINT: Physical deconditioning INTERVAL HISTORY: -NAEO, AFVSS -No episodes of tachycardia, fevers, or hypotension -Continues to have BM and tolerating PO Objective MEDICATIONS: Scheduled: ciprofloxacin, 500 mg, oral, BID - special enoxaparin, 40 mg, subcutaneous, Daily-2100 folic acid, 1 mg, oral, Daily insulin lispro, 0-10 Units, subcutaneous, TID with meals insulin lispro, 0-5 Units, subcutaneous, Nightly [Held by Provider] losartan, 25 mg, oral, Daily metroNIDAZOLE, 500 mg, oral, BID multivitamin therapeutic, 1 tablet, oral, Daily pantoprazole DR, 40 mg, oral, Daily thiamine, 100 mg, oral, Daily Infusions: PRN: acetaminophen al & mag hydroxide dubinqoakrd-yinxlaisrykghxh-dioeazekc-nystatin benzocaine-menthoL benzonatate dextrose OR dextrose glucagon guaiFENesin ER ondansetron phenoL polyethylene glycol ramelteon VITALS: 24hr Min/Max: Temp Min: 36.3 ??C (97.3 ??F) Max: 36.6 ??C (97.9 ??F) Pulse Min: 90 Max: 101 BP Min: 118/56 Max: 138/66 Resp Min: 18 Max: 18 SpO2 Min: 95 % Max: 96 % Most Recent: Vitals: 12/10/23 1520 12/10/23 1922 12/10/23199912/11/23 0206 BP: 118/56 128/68 138/66 BP Location: Left arm Left arm Left arm Patient Position: HOB 30 degrees Lying;HOB 30 degrees Pulse: 99 101 92 90 Resp: 18 18 18 Temp: 36.6 ??C (97.9 ??F) 36.3 ??C (97.3 ??F) 36.5 ??C (97.7 ??F) TempSrc: Oral Oral Axillary SpO2: 96% 96% 95% Weight: Height: Intake/Output Summary (Last 24 hours) at 12/11/2023 0828 Last data filed at 12/10/2023 1830 Gross per 24 hour Intake 525 ml Output -- Net 525 ml PHYSICAL EXAM: General: Lying in bed, conversation, well-developed Psych: alert and calm HEENT: normocephalic/atraumatic, anicteric Pulm: Normal work of breathing Cardiac: Regular rate and rhythm GI: abd soft, mildly distended, mildly tender Neuro: ambulatory, non-focal Skin: warm and dry Musculoskeletal: no deformities LAB/ RADIOLOGY/ DIAGNOSTIC REVIEW: Chem/LFT Lab History Latest Ref Rng & Units 12/07/2023 21:16 12/08/2023 20:30 12/09/2023 12/11/2023 00:10 Labs-Chem/LFT Sodium 135 - 145 mmol/L 136 137 141 138 Creatinine 0.60 - 1.10 mg/dL 0.82 0.80 0.81 0.86 CrCl- Actual Body Weight (Cockcroft-Gault) 62.2 63.8 62.1 60.8 Details More values are hidden. Newest values shown. Go to activity for more data. Hematology Lab History Latest Ref Rng & Units 12/07/2023 21:16 12/08/2023 20:30 12/09/2023 12/11/2023 Labs - Hematology WBC 3.8 - 9.9 K/cumm 9.7 10.0 17.9 10.2 Total Hb, POC 11.9 - 15.5 g/dL 7.8 8.4 7.3 7.2 Hct 35.6 - 45.5 % 26.1 27.6 24.2 23.9 Plt 150 - 400 K/cumm 487 483 413 424 Neutrophil abs 1.5 - 6.5 K/cumm 6.5 6.7 14.7 6.4 Lymphocytes, abs 0.8 - 3.3 K/cumm 2.3 2.3 1.9 2.4 Details More abnormal values are hidden. Newest values shown. Go to activity for more data. I have reviewed the laboratory results. ASSESSMENT/ PLAN: 63 y.o. female with hx of DM, HTN, and recently diagnosed IBD (originally thought to be UC but is now more likely to be Crohn's) who has persistent colitis of her sigmoid colon with microperforation,multiple abscesses of the liver and spleen, and now new left upper lobe lung lesions, some of whichare cavitary. She is not a candidate for anti-TNF treatment in the setting of her lung lesions until etiology is determined. Pt also has a new pelvic mass that requires resection. -Continue to optimize nutrition with adequate caloric and protein intake -Continue operative planning -Continue antibiotics Vicki King MD 12/11/2023 Cosigned by Yo Perez MD at 12/11/2023 11:25 AM CDT * Jhonny Kirby MD - 12/11/2023 7:29 AM CDT Medicine Daily Progress Note Patient: Darius Russo : 1960 (63 y.o.) Date of Admission: 11/25/2023 Date of Service: 12/11/23 63 year old female, hx of IBD (dx in 2022 as UC now more likely Crohn's), HTN, T2DM, adnexal cyst, admitted for weight loss (65lbs in a few months). 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 Managed initially with zosyn and then cipro/flagyl, improvement of microabscesses, has had intermittent episodes of transient bacteremia (fever, leukocytosis, tachycardia), 1x episode while inpatient. SUBJECTIVE Interval Events: -Overnight, HDS -Prelim cultures remain NGTD, hgb 7.2, WBC decreased to 10.2 (17.9) -Resumed previous antibiotic regimen of cipro and flagyl. ID aware -Collaborating with consult teams about hospital course given 2x unsuccessful attempts to dischargepatient. OBJECTIVE Vitals Most Recent: Vitals: 12/11/23 0206 BP: 138/66 Pulse: 90 Resp: 18 Temp: 36.5 ??C (97.7 ??F) SpO2: 95% 24 Hour Min/Max: Temp Min: 36.3 ??C (97.3 ??F) Max: 36.6 ??C (97.9 ??F) Pulse Min: 89 Max: 101 BP Min: 105/60 Max: 138/66 Resp Min: 18 Max: 18 SpO2 Min: 95 % Max: 97 % Intake/Output Intake/Output Summary (Last 24 hours) at 12/11/2023 0729 Last data filed at 12/10/2023 1830 Gross per 24 hour Intake 525 ml Output -- Net 525 ml Current Medications Scheduled Meds: Scheduled Medications Medication Dose Route Frequency ??? ciprofloxacin (CIPRO) tablet 500 mg 500 mg oral BID - special ??? enoxaparin (LOVENOX) syringe 40 mg 40 mg subcutaneous Daily-2100 ??? folic acid (FOLVITE) tablet 1 mg 1 mg oral Daily ??? insulin lispro (HumaLOG, ADMELOG) 100 unit/mL injection 0-10 Units 0-10 Units subcutaneous TID with meals ??? insulin lispro (HumaLOG, ADMELOG) 100 unit/mL injection 0-5 Units 0-5 Units subcutaneous Nightly ??? [Held by Provider] losartan (COZAAR) tablet 25 mg 25 mg oral Daily ??? metroNIDAZOLE (FLAGYL) tablet 500 mg 500 mg oral BID ??? multivitamin with folic acid 400 mcg tablet 1 tablet 1 tablet oral Daily ??? pantoprazole DR (PROTONIX) extended release tablet 40 mg 40 mg oral Daily ??? thiamine (VITAMIN B1) tablet 100 mg 100 mg oral Daily Continuous Meds: Current Facility-Administered Medications Medication Dose Route Frequency Last Admin PRN Meds: PRN Medications Medication Dose Route Frequency Last Admin ??? acetaminophen (TYLENOL) tablet 1,000 mg 1,000 mg oral Q6H PRN ? ? al & mag hydroxide tccjozlkvzp-qglvuyxuxnlytmc-ztlpmfvaz-nystatin (MAGIC MOUTHWASH) oral suspension 1-1-1-1 15 mL 15 mL swish & spit Q8H PRN 15 mL at 12/07/23 1719 ??? benzocaine-menthoL (CHLORASEPTIC) lozenge 1 lozenge 1 lozenge mouth/throat Q2H PRN 1 lozenge at1 0000 ??? benzonatate (TESSALON) capsule 100 mg 100 mg oral TID PRN 100 mg at 12/10/232002 ??? dextrose gel in packet 15 g 15 g oral Q15 Min PRN Or ??? dextrose (D10W) 10% bolus 250 mL 250 mL intravenous Q15 Min PRN ??? glucagon injection 1 mg 1 mg intramuscular Q30 Min PRN ??? guaiFENesin ER (MUCINEX) extended release tablet 1,200 mg 1,200 mg oral BID PRN 1,200 mg at 12/07/23 2104 ??? ondansetron (ZOFRAN) injection 4 mg 4 mg intravenous Q4H PRN 4 mg at 12/09/23 1222 ??? phenoL (CHLORASEPTIC) 1.4 % oral spray 1 spray 1 spray mouth/throat Q4H PRN 1 spray at [id number] ??? polyethylene glycol (MIRALAX) packet 17 g 17 g oral Daily PRN ??? ramelteon (ROZEREM) tablet 8 mg 8 mg oral Nightly PRN Physical Exam Physical Exam Constitutional: General: She is not in acute distress. HENT: Head: Normocephalic. Right Ear: External ear normal. Left Ear: External ear normal. Nose: Nose normal. Mouth/Throat: Mouth: Mucous membranes are moist. Pharynx: Oropharynx is clear. No oropharyngeal exudate. Eyes: Pupils: Pupils are equal, round, and reactive to light. Cardiovascular: Rate and Rhythm: Normal rate and regular rhythm. Pulses: Normal pulses. Heart sounds: Normal heart sounds. Pulmonary: Effort: Pulmonary effort is normal. Abdominal: General: Bowel sounds are normal. There is distension. Tenderness: There is abdominal tenderness. Musculoskeletal: General: Normal range of motion. Cervical back: Normal range of motion. Skin: General: Skin is warm. Capillary Refill: Capillary refill takes less than 2 seconds. Neurological: General: No focal deficit present. Mental Status: She is alert and oriented to person, place, and time. Laboratory Results Recent Results (from the past 24 hour(s)) POCT glucose Collection Time: 12/10/23 8:32 AM Result Value Ref Range Glucose, POC 111 70 - 199 mg/dL POCT glucose Collection Time: 12/10/23 11:28 AM Result Value Ref Range Glucose, POC 165 70 - 199 mg/dL POCT glucose Collection Time: 12/10/23 5:23 PM Result Value Ref Range Glucose, POC 116 70 - 199 mg/dL POCT glucose Collection Time: 12/10/23 8:55 PM Result Value Ref Range Glucose, POC 167 70 - 199 mg/dL CBC with auto differential Collection Time: 12/11/23 12:10 AM Result Value Ref Range WBC 10.2 (H) 3.8 - 9.9 K/cumm Hgb 7.0 (L) 11.9 - 15.5 g/dL Hct 23.7 (L) 35.6 - 45.5 % Plt 424 (H) 150 - 400 K/cumm MPV 9.3 9.1 - 12.3 fL RBC 2.71 (L) 3.90 - 5.20 M/cumm MCV 87.5 81.3 - 96.4 fL MCH 25.8 (L) 27.1 - 33.3 pg MCHC 29.5 (L) 32.3 - 35.7 g/dL RDW CV 19.1 (H) 11.1 - 14.9 % RDW SD 61.2 (H) 35.7 - 48.1 fL NRBC abs 0.00 0.00 - 0.01 K/cumm Renal function panel Collection Time: 12/11/23 12:10 AM Result Value Ref Range Sodium 138 135 - 145 mmol/L Potassium, pl 3.9 3.3 - 4.9 mmol/L Chloride 105 97 - 110 mmol/L CO2 26 22 - 32 mmol/L Anion gap 7 2 - 15 mmol/L BUN 13 6 - 25 mg/dL Creatinine 0.86 0.60 - 1.10 mg/dL Glucose 111 70 - 199 mg/dL Calcium 8.4 (L) 8.5 - 10.3 mg/dL Phosphorus, pl 2.8 2.3 - 4.5 mg/dL Albumin 2.1 (L) 3.5 - 5.0 g/dL Type and screen Collection Time: 12/11/23 12:10 AM Result Value Ref Range Maira, indirect Negative ABO Rh O Positive Magnesium Collection Time: 12/11/23 12:10 AM Result Value Ref Range Magnesium 1.8 1.4 - 2.5 mg/dL Differential, auto Collection Time: 12/11/23 12:10 AM Result Value Ref Range Neutrophil abs 6.4 1.5 - 6.5 K/cumm Imm gran abs 0.1 0.0 - 0.1 K/cumm Lymphocyte abs 2.4 0.8 - 3.3 K/cumm Monocyte abs 1.1 (H) 0.2 - 0.8 K/cumm Eosinophil abs 0.3 0.0 - 0.5 K/cumm Basophil abs 0.1 0.0 - 0.1 K/cumm Neutrophil pct 62.4 % Imm gran pct 0.5 % Lymphocyte pct 23.6 % Monocyte pct 10.3 % Eosinophil pct 2.7 % Basophil pct 0.5 % eGFR Collection Time: 12/11/23 12:10 AM Result Value Ref Range eGFR 75 >=60 mL/min/1.73 m2 Hemoglobin and hematocrit Collection Time: 12/11/23 3:14 AM Result Value Ref Range Hgb 7.2 (L) 11.9 - 15.5 g/dL Hct 23.9 (L) 35.6 - 45.5 % Imaging Results XR Abdomen Ap 1 Vw Narrative: EXAMINATION: Abdomen, one view. HISTORY: 63-year-old female with abdominal distention COMPARISON: Abdominal radiograph 12/04/2023 Impression: A single view of the abdomen is submitted for evaluation. Partially imaged left pleural effusion appears similar in size to previous study. Cholecystectomy clips present. Normal bowel gas pattern. Dictated by: Yareli York MD The radiology attending physician has personally reviewed this study, and had reviewed and/or edited this written report and agrees with it. Electronically signed by: Shin King M.D. Path Results: Sections show alveolated lung parenchyma with widen septae, increased interstitial inflammatory infiltration, type II pneumonocyte hyperplasia, increased alveolar foamy macrophages and rare microthrombi. Bronchiolitis with predominant chronic inflammation is also noted. We do not see definitive evid ence of vasculitis/endotheliolitis, viral cytopathic changes, granulomatous inflammation, necrosis or malignancy. Special stains for GMS, AFB, and trichrome were performed with proper controls. GMS and AFB stains show no fungal organisms or acid-fast bacteria. The trichrome stain shows no significant increase of interstitial fibrosis. Overall the findings are those of organizing lung injury, with the differential diagnosis includinginfectious etiology, autoimmune, or drug-induced. Correlation with imaging findings and microbiology study is strongly recommended. ASSESSMENT & PLAN Darius Russo is a 63 y.o. woman with relevant PMH of IBD (2022 UC, now c/f Crohn's), adnexal mass, HTN, T2DM directly admitted for expedited therapy for IBD iso progressive weight loss, found to have pulmonary lesions concerning for infectious vs malignancy. #SVT episodes #Concern for transient bacteremia vs sepsis iso worsening perforation 12/03: Patient developed SVT with acute abdominal pain, and subsequently fever and hypotension withMAPs in the 50s, this occurred after a BM. Suspect possible transient bacteremia (?gut source). Given tenuous clinical status, treated as sepsis. Discussed pt with GI, given recent normal imaging, reassuring exam during presentation yesterday and today, improving/stable lab findings, dx is mainly concerning for worsening microperforation vs transient bacteremia. In setting of hx of sepsis with microperforation, continue on broad spectrum pending clinical improvement/blood culture findings. For episode of leukocytosis, pt started on vanc zosyn without bacterial culture growth x24h. Patient's status resolved and Abx deescalated to original cipro flagyl given bcx ngtd x48h -12/08 Patient developed very similar episode as above (we had previously planned to discharge on this day). In AM she had multiple formed, nonbloody BMs with cramping afterwards. She subsequently developed rigors, tachycardia (160s), hypertension (sbps to 160). Patient was anxious and pale. EKG with artifact, likely ST vs SVT. ACT nurse called to bedside. IVF given, 2.5 mg IV metop x2. Heart rate slowly decreased to 120s. POC lactate 4.9 (repeat 4 hours later 1.2), WBC of 16.5. During this episode she had 3 bouts of bilious emesis. Abd was mildly tender, no guarding or rebound, largely unchanged from before. Her status improved following IVF and APAP. She received 2 doses of ertapenem. ONce patient stabilized we switched back to previously tolerated PO antibiotics. Suspect possible transient bacteremia (gut source) vs sepsis - vancomycin 15mg/kg q12h, piperacillin-tazobactam 4.5g q6h (12/03-) - ciprofloxacin 500mg BID , metronidazole 500mg BID (11/05-12/03, 12/05-12/08, 12/09 -) - Ertapenem q24hrs (12/08-12-09) #Throat/referred ear pain - No exudates, CENTOR of 1, present since bronchoscopy, improving with PRN APAP. IMproved with magic mouthwash (swallowed), will monitor for improvement. - order magic mouthwash q8h PRN, throat lozenges #Type 2 NC: 12/03 Trops 5>770>1061>1176 after acute SVT 12/03. Suspect related to demand ischemia. Repeat trops in AM down to 500, EKG unremarkable #IBD c/b recurrent diverticulitis, contained colonic perforation #splenic/liver abscesses, ?seeding from microperforation Patient was diagnosed with ulcerative colitis in 2022, since which time she has been prescribed rectal mesalamine. She has had recurrent admissions for sigmoid diverticulitis which have been managed medically; most recently, patient was started on a 4wk course of ciprofloxacin/metronidazole (11/05). 11/12 colonoscopy with cryptitis and inflammation now c/f colonic Crohn's, MRI dated same with sigmoid diverticulitis, contained perforation, rectal/sigmoid inflammation. Patient's symptoms include daily diarrhea (now improving) and profound weight loss as detailed elsewhere. She was admitted for remicade vs operative management, course c/b likely infectious process (lungs, liver, spleen) preventi ng remicade initiation. GI recs to consult CRS and secondary school registrar for operative intervention in setting of pending infectious workup. Per CRS, plan for TAC+cyst resection on 12/23. Given 2x unsuccessful attemptsto discharge patient, will reach out to CRS to discuss moving up her surgery. recent SVT/septic picture, will continue to monitor in hospital. - GI c/s - ID c/s, recs appreciated: abx, work-up as above - CRS c/s, rec TAC + cyst resection 12/23 - Business Office Representative c/s, will provide coverage for above surgery #Cavitary lung lesions s/p bronch with BAL/biopsy Patient with symptoms including cough [place]; admission CT CAP11/26/23 with cavitary lung lesions and associated lymphadenopathy, not seen on CT ~1 month ago; patient also with liver/spleen and adnexal masses as below. No clear risk factors for immunosuppresionsave acute severe malnutrition. Differential is broad and includes infectious, autoimmune, and malignant processes. Diagnostic work-up in addition to imaging includes: BAL 11/27 with biopsy (negative). Blood cx (mold, fungal, bacteria) NGTD; CrAg, Blasto EIA, DFA, BAL AFB, galactomannan negative. Bronch path results suggest organizing lung injury, no evidence of infection, cytology is negative for infection/malignancy. Will need recommendations from ID/pulm re follow-up management/observation of lung lesions. ANCA vasculitis workup unremarkable. - ID c/s, appreciate following - Pulm c/s, recs/intervention (BAL 11/27) appreciated: disfavor malignancy - Abx as above #FTT/severe malnutrition #Acute weight loss 65lb weight loss over 4mo; suspect related to multifocal process affecting lung/liver/spleen or mass effect from her adnexal mass. Patient endorses poor appetite, early satiety. Repeat folate/b12 labs after replenishment wnl - Nutrition c/s, recs appreciated - s/p HD thiamine, thiamine 100mg PO daily - folic acid 1mg daily, MVI daily - pyridoxine B6 100mg PO daily, dc'd #Liver/spleen abscesses: Reproduced on 11/12 MRI, too small to drain and stable from prior imaging.Improved on subsequent CT CAP. Liver also with diffuse iron deposition. Abx as above. #Adnexal mass: 11/12 MRI, 16.4 x 11.6 x 14.2cm multiseptate cystic R ovary mass. Business Office Representative onc c/s, suspect benign, per pulm, concern for possible malignancy in lungs, plan to reach out to secondary school registrar re issues. #Hypocalcemia: Intermittent throughout admission. Possibly related to poor dietary intake. 11/29 25OH-VitD 39 from 10/26. #HTN: restart losartan 25mg daily #T2DM: A1c 5.7%. HDSSI. Code Status: Full Code Disposition: pending clinical course Best contact: Primary Emergency Contact: JEAN CLAUDE RUSSO Diet: Adult Diet Regular VTE Prophylaxis: enoxaparin 40mg SQ qhs PT: PT Recommendation/Plan: Home with family, Home with intermittent assist, No further PT indicated OT:OT Recommendation: Home with family, Home with intermittent assist, No further OT indicated Jhonny Kirby MD Resident Physician Cosigned by Álvaro Radford MD at 12/11/2023 2:40 PM CDT Associated attestation - Álvaro Radford MD - 12/11/2023 2:40 PM CDT Attending Documentation I have seen and examined the patient on 12/11/23. I agree with the findings and plan of care as documented in the resident's/fellow's note. and as discussed with the resident/fellow. Supplementary Attestation Today, I am treating the patient for sigmoid perforation which is in severe exacerbation, progression, or experiencing treatment side effects as evidenced by intermittent sepsis, as described in the note. Reviewed records from the following unique sources (external institutions or providers from different services): CRS notes, GI notes. Discussed mgmt of sigmoid perforation with GI and CRS The patient is being intensively monitored for drug toxicity from abx by checking CBC, CMP, Qtc. Álvaro Radford MD * Inez Mayberry - 12/10/2023 3:35 PM CDT NUTRITION ASSESSMENT Nutrition Status: Patient meets criteria for severe chronic malnutrition, reference AAIM (ASPEN) guidelines. Present on Admission: Yes REASON FOR ASSESSMENT: Follow Up Encounter Date: 12/10/23 3:48 PM Admission Date: 11/25/2023 LOS: 15 days HPI: Patient is a 63 y.o. female female PMH HTN, T2DM, s/p cholecystectomy, a large adnexal mass c/f malignancy, and suspected crohn???s colitis who presents for active colitis. Objective Past Medical History: Diagnosis Date Adrenal mass (HCC) Diabetes mellitus (HCC) Diverticulitis Hypertension Past Surgical History: Procedure Laterality Date CHOLECYSTECTOMY 08/2023 COLONOSCOPY 2021 TUBAL LIGATION Social History Tobacco Use Smoking status: Never Smokeless tobacco: Never Substance and Sexual Activity Drug use: Never Sexual activity: Defer Alcohol Use: Not At Risk (11/13/2023) AUDIT-C Frequency of Alcohol Consumption: Never Average Number of Drinks: Patient does not drink Frequency of Binge Drinking: Never MEDICATION/LAB REVIEW: Scheduled Meds: ciprofloxacin, 500 mg, oral, BID - special enoxaparin, 40 mg, subcutaneous, Daily-2100 folic acid, 1 mg, oral, Daily insulin lispro, 0-10 Units, subcutaneous, TID with meals insulin lispro, 0-5 Units, subcutaneous, Nightly [Held by Provider] losartan, 25 mg, oral, Daily metroNIDAZOLE, 500 mg, oral, BID multivitamin therapeutic, 1 tablet, oral, Daily pantoprazole DR, 40 mg, oral, Daily thiamine, 100 mg, oral, Daily Continuous Infusions: PRN Meds: acetaminophen al & mag hydroxide ckskaydoxxq-wmfcobmwyihokiq-vtqktquqt-nystatin benzocaine-menthoL benzonatate sodium chloride 0.9% dextrose OR dextrose glucagon guaiFENesin ER ondansetron phenoL polyethylene glycol ramelteon sodium chloride 0.9% Recent Labs Lab Units 12/09/23 2302 12/09/23 1227 12/08/23 2030 12/07/23 2116 SODIUM mmol/L 141 136 137 136 POTASSIUM PLASMA mmol/L 4.1 See Comment 4.4 4.4 CHLORIDE mmol/L 108 102 104 102 CO2 mmol/L 27 24 26 25 BUN SERUM mg/dL 10 11 13 14 CREATININE mg/dL 0.81 0.73 0.80 0.82 HQG-WMN-TCRTIPW mL/min/1.73 m2 81 >90 82 79 CALCIUM mg/dL 8.1* 8.8 8.7 8.3* ALBUMIN g/dL 2.5* -- 2.8* 2.7* PHOSPHORUS PLASMA mg/dL 3.4 -- 3.2 3.3 MAGNESIUM mg/dL -- 2.0 2.1 2.3 Recent Labs Lab Units 12/10/23 1128 12/10/23 0832 12/09/23 2302 12/09/23202012/09/23 1701 12/09/23 1227 12/09/23 1202 GLUCOSE mg/dL -- -- 114 -- -- 160 -- POC GLUCOSE MONITOR mg/dL 165 111 -- 167 137 -- 175 No results found for: ALT , AST , BILIRUBIN , ALKPHOS , LIPASE Lab Results Component Value Date HGBA1C 5.7 (H) 11/04/2023 HDL 27 (L) 12/04/2023 LDLCALC 28 12/04/2023 CHOL 71 12/04/2023 TRIG 75 12/04/2023 NURSING ASSESSMENT: Last BM Date: 12/10/23 Bowel Sounds (All Quadrants): Active Emesis Assessment Emesis Color/Appearance: Clear, Yellow Juliano Scale Score: 19 Skin Integrity: Intact Vital Signs BP: 105/60 Temp: 36.5 ??C (97.7 ??F) Pulse: 89 Resp: 18 SpO2: 97 % Intake/Output Summary (Last 24 hours) at 12/10/2023 1548 Last data filed at 12/10/2023 1035 Gross per 24 hour Intake 200 ml Output -- Net 200 ml Adult Malnutrition Scoring Tool (MST) What diet do you follow at home?: regular diet Have You Recently Lost Weight Without Trying?: Yes (Comment) How Much Weight Have You Lost?: 34 lb or more Have you been eating poorly because of a decreased appetite?: Yes Malnutrition Screening Tool (MST) Score: 5 Hunger Screen - Admission Within the past 12 months the food we bought just didn't last and we didn't have money to get more.: Never true Within the past 12 months we worried whether our food would run out before we got money to buy more.: Never true Within the past 12 months, you worried that your food would run out before you got the money to buymore.: Never true Within the past 12 months, the food you bought just didn't last and you didn't have money to get more.: Never true Anthropometrics Weight: 59.1 kg (130 lb 4.7 oz) Admission Weight : 58.7 kg Weight Change: 2.30 kg (5.09 lbs) IBW/kg (Calculated) : 47.6 kg Height: 154.9 cm (5' 1 ) Weight in (lb) to have BMI = 25: 132 BMI (Calculated): 24.6 Wt Readings from Last 10 Encounters: 12/10/23 59.1 kg (130 lb 4.7 oz) 11/25/23 58.2 kg (128 lb 3.2 oz) 11/13/23 63 kg (139 lb) 11/05/23 61.5 kg (135 lb 9.6 oz) 10/27/23 63 kg (139 lb) 10/23/23 63 kg (139 lb) 10/03/23 66.9 kg (147 lb 7.8 oz) 10/02/23 67.4 kg (148 lb 8 oz) ESTIMATED NEEDS: Weight Used for Equation Calculations (RD Determined): 58.7 kg (129 lb 6.6 oz) Total Kcal/kg Estimated Needs : 1761 Kcal/k. Type of Weight Used for Estimated Kcals: RD determined Total Protein Estimated Needs (gm): 70.49 Protein Needs Based on g/k.2 Type of Weight Used for Estimated Protein : Current Dietary Orders (From admission, onward) Start Ordered 12/04/23 1159 Adult Diet Regular Diet effective now Question: ([facility]) Diet type Answer: Regular 12/04/23 1158 12/03/23 0700 Oral Nutrition Supplements ([facility]) Select Supplement: Ayla Whit 1.0 - Vanilla With Breakfast and Dinner Question: ([facility]) Select Supplement: Answer: Ayla Sherman 1.0 - Vanilla 12/02/23 1838 11/26/23 2100 Bedtime snack At bedtime Comments: If bedtime BG is less than 100mg/dl, give patient a 15 gram carbohydrate snack. 11/25/232130 Allergies: Reviewed. IMPRESSION: RD patient screened for follow up. Patient reports a good appetite. She states that she ate all of her breakfast and most of her lunch (salad and broccoli soup). She reports having diarrhea this twice morning. She noted that her last bowl movement was this afternoon and was a soft consistency. She denies current nausea, vomiting, and constipation. Note that her weight has decreased 2 pounds per chart records, standing scale weights 127 pounds on 12/02 and 125 on 12/08. Patient appears motivatedto increase PO intake to reduce weight loss and retain lean body mass. Family supporting her. Her daughter purchased Addictive drinks for patient to drink at home. Patient stated possible colostomy and cyst removal sometime in the near future. AASHARRI (ASPEN) MALNUTRITION ASSESSMENT: Date of completion: 11/27/2023 ASPEN/AND Malnutrition Screening: Chronic illness or injury severe Subcutaneous Fat Loss Severity: Severe Muscle Mass Loss Severity: Severe Patient Meets Criteria for Severe Malnutrition: Yes NUTRITION FOCUSED PHYSICAL EXAM: Completed. Subcutaneous Fat Loss Orbital Region - Surrounding the Eye: Hollow look Upper Arm Region - Triceps/Biceps: Some depth pinch but not ample Muscle Loss Moravian Region - Temporalis Muscle: Slight depression Clavicle Bone Region - Pectoralis Major, Deltoid, Trapezius Muscles: Protruding, prominent bone Clavicle and Acromion Bone Region - Deltoid Muscle: Shoulder to arm joint looks square Anterior Thigh and Patellar Region - Quadricep Muscle: Depression along thigh Posterior Calf Region - Gastrocnemius Muscle: Thin, minimal to no muscle definition NUTRITION DIAGNOSIS: Nutrition Diagnosis 1: Protein-Calorie Malnutrition - Severe Related to: Chronic illness/injury Evidenced by: Physical finding INTERVENTION(S): Summary: Medical food supplement, Encouragement, Meals and snacks Ordered Addictive 1.4 Encouraged PO intake to reduce weight loss and lean body mass wasting. Patient was motivated to drink Oco shakes and eat meals and snack. Discussed PRN imodium to help reduce lose stools. GOAL(S): Promote slow and steady weight gain 1/2 to 1 pound per week MONITORING/EVALUATION: Appetite, Discharge plans, I/O, Plan of care, Labs Inez Mayberry U Portainer Operator Cosigned by Sylvia Trujillo RD at 12/11/2023 7:22 AM CDT * Jhonny Kirby MD - 12/10/2023 7:32 AM CDT Medicine Daily Progress Note Patient: Darius Russo : 1960 (63 y.o.) Date of Admission: 11/25/2023 Date of Service: 12/10/23 63 year old female, hx of IBD (dx in 2022 as UC now more likely Crohn's), HTN, T2DM, adnexal cyst, admitted for weight loss (65lbs in a few months). 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 Managed initially with zosyn and then cipro/flagyl, improvement of microabscesses, has had intermittent episodes of transient bacteremia (fever, leukocytosis, tachycardia), 1x episode while inpatient. SUBJECTIVE Interval Events: -Overnight, AFVSS, episode of rigors, tachycardia, hypotension resolved -Prelim cultures NGTD, UA unremarkable, repeat lactate 1.6 -WBC 17.9 -Resumed previous antibiotic regimen of cipro and flagyl. ID aware -Collaborating with consult teams about hospital course given 2x unsuccessful attempts to dischargepatient. - abd exam unchanged, weight 125lbs (129lbs on admission) OBJECTIVE Vitals Most Recent: Vitals: 12/10/23 0734 BP: 105/60 Pulse: 89 Resp: 18 Temp: 36.5 ??C (97.7 ??F) SpO2: 97% 24 Hour Min/Max: Temp Min: 36.5 ??C (97.7 ??F) Max: 39.3 ??C (102.7 ??F) Pulse Min: 89 Max: 140 BP Min: 81/49 Max: 126/51 Resp Min: 18 Max: 18 SpO2 Min: 86 % Max: 97 % Intake/Output Intake/Output Summary (Last 24 hours) at 12/10/2023 1230 Last data filed at 12/10/2023 1035 Gross per 24 hour Intake 200 ml Output -- Net 200 ml Current Medications Scheduled Meds: Scheduled Medications Medication Dose Route Frequency ??? ciprofloxacin (CIPRO) tablet 500 mg 500 mg oral BID - special ??? enoxaparin (LOVENOX) syringe 40 mg 40 mg subcutaneous Daily-2100 ??? ertapenem (INVanz) 1,000 mg in sterile water 10 mL (100 mg/mL) IV syringe 1,000 mg intravenous Q24H DARIN ??? folic acid (FOLVITE) tablet 1 mg 1 mg oral Daily ??? insulin lispro (HumaLOG, ADMELOG) 100 unit/mL injection 0-10 Units 0-10 Units subcutaneous TID with meals ??? insulin lispro (HumaLOG, ADMELOG) 100 unit/mL injection 0-5 Units 0-5 Units subcutaneous Nightly ??? [Held by Provider] losartan (COZAAR) tablet 25 mg 25 mg oral Daily ??? metroNIDAZOLE (FLAGYL) tablet 500 mg 500 mg oral BID ??? multivitamin with folic acid 400 mcg tablet 1 tablet 1 tablet oral Daily ??? pantoprazole DR (PROTONIX) extended release tablet 40 mg 40 mg oral Daily ??? thiamine (VITAMIN B1) tablet 100 mg 100 mg oral Daily Continuous Meds: Current Facility-Administered Medications Medication Dose Route Frequency Last Admin PRN Meds: PRN Medications Medication Dose Route Frequency Last Admin ??? acetaminophen (TYLENOL) tablet 1,000 mg 1,000 mg oral Q6H PRN ? ? al & mag hydroxide dkhfcbwrcwz-yhfvkxkvvglkhld-sexdykfpe-nystatin (MAGIC MOUTHWASH) oral suspension 1-1-1-1 15 mL 15 mL swish & spit Q8H PRN 15 mL at 12/07/23 1719 ??? benzocaine-menthoL (CHLORASEPTIC) lozenge 1 lozenge 1 lozenge mouth/throat Q2H PRN 1 lozenge at1 0000 ??? benzonatate (TESSALON) capsule 100 mg 100 mg oral TID PRN 100 mg at 12/09/23 1251 ??? Carrier Fluids for Secondary Infusion - 0.9% Sodium Chloride 30 mL intravenous PRN ??? dextrose gel in packet 15 g 15 g oral Q15 Min PRN Or ??? dextrose (D10W) 10% bolus 250 mL 250 mL intravenous Q15 Min PRN ??? glucagon injection 1 mg 1 mg intramuscular Q30 Min PRN ??? guaiFENesin ER (MUCINEX) extended release tablet 1,200 mg 1,200 mg oral BID PRN 1,200 mg at 12/07/23 2104 ??? ondansetron (ZOFRAN) injection 4 mg 4 mg intravenous Q4H PRN 4 mg at 12/09/23 1222 ??? phenoL (CHLORASEPTIC) 1.4 % oral spray 1 spray 1 spray mouth/throat Q4H PRN 1 spray at 058 ??? polyethylene glycol (MIRALAX) packet 17 g 17 g oral Daily PRN ??? ramelteon (ROZEREM) tablet 8 mg 8 mg oral Nightly PRN ??? sodium chloride 0.9% flush 0.5-20 mL 0.5-20 mL intra-catheter PRN 10 mL at 12/07/23 0601 Physical Exam Physical Exam Constitutional: General: She is not in acute distress. HENT: Head: Normocephalic. Right Ear: External ear normal. Left Ear: External ear normal. Nose: Nose normal. Mouth/Throat: Mouth: Mucous membranes are moist. Pharynx: Oropharynx is clear. No oropharyngeal exudate. Eyes: Pupils: Pupils are equal, round, and reactive to light. Cardiovascular: Rate and Rhythm: Normal rate and regular rhythm. Pulses: Normal pulses. Heart sounds: Normal heart sounds. Pulmonary: Effort: Pulmonary effort is normal. Abdominal: General: Bowel sounds are normal. There is distension. Tenderness: There is abdominal tenderness. Musculoskeletal: General: Normal range of motion. Cervical back: Normal range of motion. Skin: General: Skin is warm. Capillary Refill: Capillary refill takes less than 2 seconds. Neurological: General: No focal deficit present. Mental Status: She is alert and oriented to person, place, and time. Laboratory Results Recent Results (from the past 24 hour(s)) Lactate Collection Time: 12/09/23 3:21 PM Result Value Ref Range Lactate 1.6 0.7 - 2.0 mmol/L Urinalysis reflex to microscopic and culture Urine Collection Time: 12/09/23 4:51 PM Specimen: Urine Result Value Ref Range Color, ur Yellow Yellow Clarity, ur Clear Clear Specific gravity, ur 1.016 1.003 - 1.030 pH, urine 6.0 Protein, ur ql Trace Negative Glucose, ur ql Negative Negative Ketones, ur Negative Negative Bilirubin, ur Negative Negative Blood, ur Negative Negative Urobilinogen, ur <2.0 <2.0 mg/dL Nitrite, ur Negative Negative Leukocyte esterase, ur Negative Negative UA reflex comment Reflex conditions for microscopic UA and culture not met. POCT glucose Collection Time: 12/09/23 5:01 PM Result Value Ref Range Glucose, POC 137 70 - 199 mg/dL POCT glucose Collection Time: 12/09/23 8:21 PM Result Value Ref Range Glucose, POC 167 70 - 199 mg/dL CBC with auto differential Collection Time: 12/09/23 11:02 PM Result Value Ref Range WBC 17.9 (H) 3.8 - 9.9 K/cumm Hgb 7.3 (L) 11.9 - 15.5 g/dL Hct 24.2 (L) 35.6 - 45.5 % Plt 413 (H) 150 - 400 K/cumm MPV 9.1 9.1 - 12.3 fL RBC 2.80 (L) 3.90 - 5.20 M/cumm MCV 86.4 81.3 - 96.4 fL MCH 26.1 (L) 27.1 - 33.3 pg MCHC 30.2 (L) 32.3 - 35.7 g/dL RDW CV 18.8 (H) 11.1 - 14.9 % RDW SD 59.6 (H) 35.7 - 48.1 fL NRBC abs 0.00 0.00 - 0.01 K/cumm Renal function panel Collection Time: 12/09/23 11:02 PM Result Value Ref Range Sodium 141 135 - 145 mmol/L Potassium, pl 4.1 3.3 - 4.9 mmol/L Chloride 108 97 - 110 mmol/L CO2 27 22 - 32 mmol/L Anion gap 6 2 - 15 mmol/L BUN 10 6 - 25 mg/dL Creatinine 0.81 0.60 - 1.10 mg/dL Glucose 114 70 - 199 mg/dL Calcium 8.1 (L) 8.5 - 10.3 mg/dL Phosphorus, pl 3.4 2.3 - 4.5 mg/dL Albumin 2.5 (L) 3.5 - 5.0 g/dL Differential, auto Collection Time: 12/09/23 11:02 PM Result Value Ref Range Neutrophil abs 14.7 (H) 1.5 - 6.5 K/cumm Imm gran abs 0.1 0.0 - 0.1 K/cumm Lymphocyte abs 1.9 0.8 - 3.3 K/cumm Monocyte abs 1.1 (H) 0.2 - 0.8 K/cumm Eosinophil abs 0.1 0.0 - 0.5 K/cumm Basophil abs 0.1 0.0 - 0.1 K/cumm Neutrophil pct 82.0 % Imm gran pct 0.7 % Lymphocyte pct 10.7 % Monocyte pct 5.9 % Eosinophil pct 0.4 % Basophil pct 0.3 % eGFR Collection Time: 12/09/23 11:02 PM Result Value Ref Range eGFR 81 >=60 mL/min/1.73 m2 POCT glucose Collection Time: 12/10/23 8:32 AM Result Value Ref Range Glucose, POC 111 70 - 199 mg/dL POCT glucose Collection Time: 12/10/23 11:28 AM Result Value Ref Range Glucose, POC 165 70 - 199 mg/dL Imaging Results XR Abdomen Ap 1 Vw Narrative: EXAMINATION: Abdomen, one view. HISTORY: 63-year-old female with abdominal distention COMPARISON: Abdominal radiograph 12/04/2023 Impression: A single view of the abdomen is submitted for evaluation. Partially imaged left pleural effusion appears similar in size to previous study. Cholecystectomy clips present. Normal bowel gas pattern. Dictated by: Yareli York MD The radiology attending physician has personally reviewed this study, and had reviewed and/or edited this written report and agrees with it. Electronically signed by: Shin King M.D. Path Results: Sections show alveolated lung parenchyma with widen septae, increased interstitial inflammatory infiltration, type II pneumonocyte hyperplasia, increased alveolar foamy macrophages and rare microthrombi. Bronchiolitis with predominant chronic inflammation is also noted. We do not see definitive evid ence of vasculitis/endotheliolitis, viral cytopathic changes, granulomatous inflammation, necrosis or malignancy. Special stains for GMS, AFB, and trichrome were performed with proper controls. GMS and AFB stains show no fungal organisms or acid-fast bacteria. The trichrome stain shows no significant increase of interstitial fibrosis. Overall the findings are those of organizing lung injury, with the differential diagnosis includinginfectious etiology, autoimmune, or drug-induced. Correlation with imaging findings and microbiology study is strongly recommended. ASSESSMENT & PLAN Darius Russo is a 63 y.o. woman with relevant PMH of IBD (2022 UC, now c/f Crohn's), adnexal mass, HTN, T2DM directly admitted for expedited therapy for IBD iso progressive weight loss, found to have pulmonary lesions concerning for infectious vs malignancy. #SVT episodes #Concern for transient bacteremia vs sepsis iso worsening perforation 12/03: Patient developed SVT with acute abdominal pain, and subsequently fever and hypotension withMAPs in the 50s, this occurred after a BM. Suspect possible transient bacteremia (?gut source). Given tenuous clinical status, treated as sepsis. Discussed pt with GI, given recent normal imaging, reassuring exam during presentation yesterday and today, improving/stable lab findings, dx is mainly concerning for worsening microperforation vs transient bacteremia. In setting of hx of sepsis with microperforation, continue on broad spectrum pending clinical improvement/blood culture findings. For episode of leukocytosis, pt started on vanc zosyn without bacterial culture growth x24h. Patient's status resolved and Abx deescalated to original cipro flagyl given bcx ngtd x48h -12/08 Patient developed very similar episode as above (we had previously planned to discharge on this day). In AM she had multiple formed, nonbloody BMs with cramping afterwards. She subsequently developed rigors, tachycardia (160s), hypertension (sbps to 160). Patient was anxious and pale. EKG with artifact, likely ST vs SVT. ACT nurse called to bedside. IVF given, 2.5 mg IV metop x2. Heart rate slowly decreased to 120s. POC lactate 4.9 (repeat 4 hours later 1.2), WBC of 16.5. During this episode she had 3 bouts of bilious emesis. Abd was mildly tender, no guarding or rebound, largely unchanged from before. Her status improved following IVF and APAP. She received 2 doses of ertapenem. ONce patient stabilized we switched back to previously tolerated PO antibiotics. Suspect possible transient bacteremia (gut source) vs sepsis - vancomycin 15mg/kg q12h, piperacillin-tazobactam 4.5g q6h (12/03-) - ciprofloxacin 500mg BID , metronidazole 500mg BID (11/05-12/03, 12/05-12/08, 12/09 -) - Ertapenem q24hrs (12/08-12-09) #Throat/referred ear pain - No exudates, CENTOR of 1, present since bronchoscopy, improving with PRN APAP. IMproved with magic mouthwash (swallowed), will monitor for improvement. - order magic mouthwash q8h PRN, throat lozenges #Type 2 NC: 12/03 Trops 5>770>1061>1176 after acute SVT 12/03. Suspect related to demand ischemia. Repeat trops in AM down to 500, EKG unremarkable #IBD c/b recurrent diverticulitis, contained colonic perforation #splenic/liver abscesses, ?seeding from microperforation Patient was diagnosed with ulcerative colitis in 2022, since which time she has been prescribed rectal mesalamine. She has had recurrent admissions for sigmoid diverticulitis which have been managed medically; most recently, patient was started on a 4wk course of ciprofloxacin/metronidazole (11/05). 11/12 colonoscopy with cryptitis and inflammation now c/f colonic Crohn's, MRI dated same with sigmoid diverticulitis, contained perforation, rectal/sigmoid inflammation. Patient's symptoms include daily diarrhea (now improving) and profound weight loss as detailed elsewhere. She was admitted for remicade vs operative management, course c/b likely infectious process (lungs, liver, spleen) preventi ng remicade initiation. GI recs to consult CRS and secondary school registrar for operative intervention in setting of pending infectious workup. Per CRS, plan for TAC+cyst resection on 12/23. Given 2x unsuccessful attemptsto discharge patient, will reach out to CRS to discuss moving up her surgery. recent SVT/septic picture, will continue to monitor in hospital. - GI c/s - ID c/s, recs appreciated: abx, work-up as above - CRS c/s, rec TAC + cyst resection 12/23 - Business Office Representative c/s, will provide coverage for above surgery #Cavitary lung lesions s/p bronch with BAL/biopsy Patient with symptoms including cough and [place]; admission CT CAP11/26/23 with cavitary lung lesions and associated lymphadenopathy, not seen on CT ~1 month ago; patient also with liver/spleen and adnexal masses as below. No clear risk factors for immunosuppresionsave acute severe malnutrition. Differential is broad and includes infectious, autoimmune, and malignant processes. Diagnostic work-up in addition to imaging includes: BAL 11/27 with biopsy (negative). Blood cx (mold, fungal, bacteria) NGTD; CrAg, Blasto EIA, DFA, BAL AFB, galactomannan negative. Bronch path results suggest organizing lung injury, no evidence of infection, cytology is negative for infection/malignancy. Will need recommendations from ID/pulm re follow-up management/observation of lung lesions. ANCA vasculitis workup unremarkable. - ID c/s, appreciate following - Pulm c/s, recs/intervention (BAL 11/27) appreciated: disfavor malignancy - Abx as above #FTT/severe malnutrition #Acute weight loss 65lb weight loss over 4mo; suspect related to multifocal process affecting lung/liver/spleen or mass effect from her adnexal mass. Patient endorses poor appetite, early satiety. Repeat folate/b12 labs after replenishment wnl - Nutrition c/s, recs appreciated - s/p HD thiamine, thiamine 100mg PO daily - folic acid 1mg daily, MVI daily - pyridoxine B6 100mg PO daily, dc'd #Liver/spleen abscesses: Reproduced on 11/12 MRI, too small to drain and stable from prior imaging.Improved on subsequent CT CAP. Liver also with diffuse iron deposition. Abx as above. #Adnexal mass: 11/12 MRI, 16.4 x 11.6 x 14.2cm multiseptate cystic R ovary mass. Business Office Representative onc c/s, suspect benign, per pulm, concern for possible malignancy in lungs, plan to reach out to secondary school registrar re issues. #Hypocalcemia: Intermittent throughout admission. Possibly related to poor dietary intake. 11/29 25OH-VitD 39 from 10/26. #HTN: restart losartan 25mg daily #T2DM: A1c 5.7%. HDSSI. Code Status: Full Code Disposition: pending clinical course Best contact: Primary Emergency Contact: JEAN CLAUDE RUSSO Diet: Adult Diet Regular VTE Prophylaxis: enoxaparin 40mg SQ qhs PT: PT Recommendation/Plan: Home with family, Home with intermittent assist, No further PT indicated OT:OT Recommendation: Home with family, Home with intermittent assist, No further OT indicated Jhonny Kirby MD Resident Physician Cosigned by Álvaro Radford MD at 12/10/2023 4:02 PM CDT Associated attestation - Álvaro Radford MD - 12/10/2023 4:02 PM CDT Attending Documentation I have seen and examined the patient on 12/10/23. I agree with the findings and plan of care as documented in the resident's/fellow's note. and as discussed with the resident/fellow. Doing well today, vitals stabilized. Eating and drinking well. Will discuss surgical timing in light of these recurrent episodes. Supplementary Attestation Today, I am treating the patient for sigmoid perforation which is in severe exacerbation, progression, or experiencing treatment side effects as evidenced by intermittent sepsis, as described in the note. Reviewed records from the following unique sources (external institutions or providers from different services): CRS notes, GI notes. Discussed mgmt of sigmoid perforation with GI and CRS The patient is being intensively monitored for drug toxicity from abx by checking CBC, CMP, Qtc. Álvaro Radford MD * Vicki King MD - 12/10/2023 6:56 AM CDT Images from the original note were not included. [facility] Daily Progress Note Colorectal Surgery Surgery PATIENT NAME: Darius Russo : 1960 ADMIT DATE: 11/25/2023 6:29 PM LOS: 15 Subjective CHIEF COMPLAINT: Physical deconditioning INTERVAL HISTORY: -Pt febrile, tachy yesterday -Rise in WBC to 17.9 and transient rise in lactate Objective MEDICATIONS: Scheduled: [Held by Provider] ciprofloxacin, 500 mg, oral, BID - special enoxaparin, 40 mg, subcutaneous, Daily-2100 ertapenem, 1,000 mg, intravenous, Q24H DARIN folic acid, 1 mg, oral, Daily insulin lispro, 0-10 Units, subcutaneous, TID with meals insulin lispro, 0-5 Units, subcutaneous, Nightly [Held by Provider] losartan, 25 mg, oral, Daily [Held by Provider] metroNIDAZOLE, 500 mg, oral, BID multivitamin therapeutic, 1 tablet, oral, Daily pantoprazole DR, 40 mg, oral, Daily thiamine, 100 mg, oral, Daily Infusions: PRN: acetaminophen al & mag hydroxide nhrlxyfjjuc-ppgqcgcffoqnqpt-swnuwbeka-nystatin benzocaine-menthoL benzonatate sodium chloride 0.9% dextrose OR dextrose glucagon guaiFENesin ER ondansetron phenoL polyethylene glycol ramelteon sodium chloride 0.9% VITALS: 24hr Min/Max: Temp Min: 36.4 ??C (97.5 ??F) Max: 39.3 ??C (102.7 ??F) Pulse Min: 92 Max: 173 BP Min: 81/49 Max: 192/132 Resp Min: 18 Max: 18 SpO2 Min: 86 % Max: 100 % Most Recent: Vitals: 12/09/23 1735 12/09/23 2100 12/10/23 0020 12/10/23 0355 BP: (!) 88/48 106/59 111/58 BP Location: Left arm Left arm Patient Position: HOB 30 degrees HOB 30 degrees Pulse: 105 92 94 93 Resp: 18 18 Temp: 36.5 ??C (97.7 ??F) 36.6 ??C (97.9 ??F) TempSrc: Oral Oral SpO2: 97% 97% Weight: 59.1 kg (130 lb 4.7 oz) Height: No intake or output data in the 24 hours ending 12/10/23 0656 PHYSICAL EXAM: General: Lying in bed, conversation, well-developed Psych: alert and calm HEENT: normocephalic/atraumatic, anicteric Pulm: Normal work of breathing Cardiac: Regular rate and rhythm GI: abd soft, mildly distended, mildly tender Neuro: ambulatory, non-focal Skin: warm and dry Musculoskeletal: no deformities LAB/ RADIOLOGY/ DIAGNOSTIC REVIEW: Chem/LFT Lab History Latest Ref Rng & Units 12/06/2023 21:47 12/07/2023 21:16 12/08/2023 20:30 12/09/2023 Labs-Chem/LFT Sodium 135 - 145 mmol/L 136 136 137 141 Creatinine 0.60 - 1.10 mg/dL 0.82 0.82 0.80 0.81 CrCl- Actual Body Weight (Cockcroft-Gault) 62.2 62.2 63.8 62.1 Details More values are hidden. Newest values shown. Go to activity for more data. Hematology Lab History Latest Ref Rng & Units 12/06/2023 21:47 12/07/2023 21:16 12/08/2023 20:30 12/09/2023 Labs - Hematology WBC 3.8 - 9.9 K/cumm 12.2 9.7 10.0 17.9 Total Hb, POC 11.9 - 15.5 g/dL 8.1 7.8 8.4 7.3 Hct 35.6 - 45.5 % 27.7 26.1 27.6 24.2 Plt 150 - 400 K/cumm 490 487 483 413 Neutrophil abs 1.5 - 6.5 K/cumm 8.7 6.5 6.7 14.7 Lymphocytes, abs 0.8 - 3.3 K/cumm 2.3 2.3 2.3 1.9 Details More abnormal values are hidden. Newest values shown. Go to activity for more data. I have reviewed the laboratory results. ASSESSMENT/ PLAN: 63 y.o. female with hx of DM, HTN, and recently diagnosed IBD (originally thought to be UC but is now more likely to be Crohn's) who has persistent colitis of her sigmoid colon with microperforation,multiple abscesses of the liver and spleen, and now new left upper lobe lung lesions, some of whichare cavitary. She is not a candidate for anti-TNF treatment in the setting of her lung lesions until etiology is determined. Pt also has a new pelvic mass that requires resection. -Continue to optimize nutrition with adequate caloric and protein intake -Continue operative planning -Continue antibiotics Vicki King MD 12/10/2023 Cosigned by Yo Perez MD at 12/11/2023 7:56 AM CDT * Jhonny Kirby MD - 12/09/2023 7:40 AM CDT Medicine Daily Progress Note Patient: Darius Russo : 1960 (63 y.o.) Date of Admission: 11/25/2023 Date of Service: 12/09/23 63 year old female, hx of IBD (dx in 2022 as UC now more likely Crohn's), HTN, T2DM, adnexal cyst, admitted for weight loss (65lbs in a few months). 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 Managed initially with zosyn and then cipro/flagyl, improvement of microabscesses, has had intermittent episodes of transient bacteremia (fever, leukocytosis, tachycardia), 1x episode while inpatient. SUBJECTIVE Interval Events: -Overnight: AF, tachy (100's), cbc bmp lateral - This morning the plan was to discharge with PO antibiotics prior to her surgery on 12/23. After rounds she had multiple formed, nonbloody BMs with cramping afterwards. She subsequently developed rigors, tachycardia (160s), hypertension (sbps to 160). Patient was anxious and pale. EKG with artifact, likely ST vs SVT. ACT team called. IVF given, 2.5 mg IV metop x2. Heart rate slowly decreased to 120s. POC lactate 4.9, stat CBC with WBC of 16.5. during this episode she had 3 bouts of bilious emesis. Abd is mildly tender, no guarding or rebound. held PO antibiotics and switched to IV ertapenem. - Given hx of similar episode, reassuring clinical exam, down trending lactate, we will continue tomanage with IVF, antibiotics, and symptomatic care. - will update consulting services. Discharge will be cancelled. - Given 2x unsuccessful attempts to discharge patient, will reach out to CRS to discuss moving up her surgery. OBJECTIVE Vitals Most Recent: Vitals: 12/09/23 1435 BP: Pulse: 115 Resp: Temp: 37 ??C (98.6 ??F) SpO2: 97% 24 Hour Min/Max: Temp Min: 36.4 ??C (97.5 ??F) Max: 39.3 ??C (102.7 ??F) Pulse Min: 99 Max: 173 BP Min: 93/40 Max: 192/132 Resp Min: 16 Max: 18 SpO2 Min: 86 % Max: 100 % Intake/Output Intake/Output Summary (Last 24 hours) at 12/09/2023 1547 Last data filed at 12/08/2023 1920 Gross per 24 hour Intake 500 ml Output -- Net 500 ml Current Medications Scheduled Meds: Scheduled Medications Medication Dose Route Frequency ??? [Held by Provider] ciprofloxacin (CIPRO) tablet 500 mg 500 mg oral BID - special ??? enoxaparin (LOVENOX) syringe 40 mg 40 mg subcutaneous Daily-2100 ??? ertapenem (INVanz) 1,000 mg in sterile water 10 mL (100 mg/mL) IV syringe 1,000 mg intravenous Q24H DARIN ??? folic acid (FOLVITE) tablet 1 mg 1 mg oral Daily ??? insulin lispro (HumaLOG, ADMELOG) 100 unit/mL injection 0-10 Units 0-10 Units subcutaneous TID with meals ??? insulin lispro (HumaLOG, ADMELOG) 100 unit/mL injection 0-5 Units 0-5 Units subcutaneous Nightly ??? Lactated Ringer's (LR) bolus 500 mL 500 mL intravenous Once ??? [Held by Provider] losartan (COZAAR) tablet 25 mg 25 mg oral Daily ??? [Held by Provider] metroNIDAZOLE (FLAGYL) tablet 500 mg 500 mg oral BID ??? multivitamin with folic acid 400 mcg tablet 1 tablet 1 tablet oral Daily ??? pantoprazole DR (PROTONIX) extended release tablet 40 mg 40 mg oral Daily ??? thiamine (VITAMIN B1) tablet 100 mg 100 mg oral Daily Continuous Meds: Current Facility-Administered Medications Medication Dose Route Frequency Last Admin PRN Meds: PRN Medications Medication Dose Route Frequency Last Admin ??? acetaminophen (TYLENOL) tablet 650 mg 650 mg oral Q4H PRN 650 mg at 12/06/23 2138 ? ? al & mag hydroxide keaadeqiwta-mukbbrsnmlcmail-hdkhaxyaj-nystatin (MAGIC MOUTHWASH) oral suspension 1-1-1-1 15 mL 15 mL swish & spit Q8H PRN 15 mL at 12/07/23 1719 ??? benzocaine-menthoL (CHLORASEPTIC) lozenge 1 lozenge 1 lozenge mouth/throat Q2H PRN 1 lozenge at1 0000 ??? benzonatate (TESSALON) capsule 100 mg 100 mg oral TID PRN 100 mg at 12/09/23 1251 ??? Carrier Fluids for Secondary Infusion - 0.9% Sodium Chloride 30 mL intravenous PRN ??? dextrose gel in packet 15 g 15 g oral Q15 Min PRN Or ??? dextrose (D10W) 10% bolus 250 mL 250 mL intravenous Q15 Min PRN ??? glucagon injection 1 mg 1 mg intramuscular Q30 Min PRN ??? guaiFENesin ER (MUCINEX) extended release tablet 1,200 mg 1,200 mg oral BID PRN 1,200 mg at 12/07/232103 ??? ondansetron (ZOFRAN) injection 4 mg 4 mg intravenous Q4H PRN 4 mg at 12/09/23 1222 ??? phenoL (CHLORASEPTIC) 1.4 % oral spray 1 spray 1 spray mouth/throat Q4H PRN 1 spray at 058 ??? polyethylene glycol (MIRALAX) packet 17 g 17 g oral Daily PRN ??? ramelteon (ROZEREM) tablet 8 mg 8 mg oral Nightly PRN ??? sodium chloride 0.9% flush 0.5-20 mL 0.5-20 mL intra-catheter PRN 10 mL at 12/07/23 0601 Physical Exam Physical Exam Constitutional: General: She is not in acute distress. HENT: Head: Normocephalic. Right Ear: External ear normal. Left Ear: External ear normal. Nose: Nose normal. Mouth/Throat: Mouth: Mucous membranes are moist. Pharynx: Oropharynx is clear. No oropharyngeal exudate. Eyes: Pupils: Pupils are equal, round, and reactive to light. Cardiovascular: Rate and Rhythm: Normal rate and regular rhythm. Pulses: Normal pulses. Heart sounds: Normal heart sounds. Pulmonary: Effort: Pulmonary effort is normal. Abdominal: General: Bowel sounds are normal. There is distension. Tenderness: There is abdominal tenderness. Musculoskeletal: General: Normal range of motion. Cervical back: Normal range of motion. Skin: General: Skin is warm. Capillary Refill: Capillary refill takes less than 2 seconds. Neurological: General: No focal deficit present. Mental Status: She is alert and oriented to person, place, and time. Laboratory Results Recent Results (from the past 24 hour(s)) POCT glucose Collection Time: 12/08/23 4:34 PM Result Value Ref Range Glucose, POC 158 70 - 199 mg/dL POCT glucose Collection Time: 12/08/23 5:56 PM Result Value Ref Range Glucose, POC 130 70 - 199 mg/dL POCT glucose Collection Time: 12/08/23 8:08 PM Result Value Ref Range Glucose, POC 182 70 - 199 mg/dL CBC with auto differential Collection Time: 12/08/23 8:30 PM Result Value Ref Range WBC 10.0 (H) 3.8 - 9.9 K/cumm Hgb 8.4 (L) 11.9 - 15.5 g/dL Hct 27.6 (L) 35.6 - 45.5 % Plt 483 (H) 150 - 400 K/cumm MPV 9.2 9.1 - 12.3 fL RBC 3.26 (L) 3.90 - 5.20 M/cumm MCV 84.7 81.3 - 96.4 fL MCH 25.8 (L) 27.1 - 33.3 pg MCHC 30.4 (L) 32.3 - 35.7 g/dL RDW CV 18.6 (H) 11.1 - 14.9 % RDW SD 57.9 (H) 35.7 - 48.1 fL NRBC abs 0.00 0.00 - 0.01 K/cumm Renal function panel Collection Time: 12/08/23 8:30 PM Result Value Ref Range Sodium 137 135 - 145 mmol/L Potassium, pl 4.4 3.3 - 4.9 mmol/L Chloride 104 97 - 110 mmol/L CO2 26 22 - 32 mmol/L Anion gap 7 2 - 15 mmol/L BUN 13 6 - 25 mg/dL Creatinine 0.80 0.60 - 1.10 mg/dL Glucose 178 70 - 199 mg/dL Calcium 8.7 8.5 - 10.3 mg/dL Phosphorus, pl 3.2 2.3 - 4.5 mg/dL Albumin 2.8 (L) 3.5 - 5.0 g/dL Differential, auto Collection Time: 12/08/23 8:30 PM Result Value Ref Range Neutrophil abs 6.7 (H) 1.5 - 6.5 K/cumm Imm gran abs 0.1 0.0 - 0.1 K/cumm Lymphocyte abs 2.3 0.8 - 3.3 K/cumm Monocyte abs 0.7 0.2 - 0.8 K/cumm Eosinophil abs 0.2 0.0 - 0.5 K/cumm Basophil abs 0.1 0.0 - 0.1 K/cumm Neutrophil pct 66.8 % Imm gran pct 0.6 % Lymphocyte pct 22.8 % Monocyte pct 7.1 % Eosinophil pct 2.1 % Basophil pct 0.6 % eGFR Collection Time: 12/08/23 8:30 PM Result Value Ref Range eGFR 82 >=60 mL/min/1.73 m2 Magnesium Collection Time: 12/08/23 8:30 PM Result Value Ref Range Magnesium 2.1 1.4 - 2.5 mg/dL POCT glucose Collection Time: 12/09/23 8:12 AM Result Value Ref Range Glucose, POC 135 70 - 199 mg/dL POCT glucose Collection Time: 12/09/23 12:02 PM Result Value Ref Range Glucose, POC 175 70 - 199 mg/dL POCT lactate Collection Time: 12/09/23 12:20 PM Result Value Ref Range Lactate POC i-STAT 5.0 (Critical) 0.7 - 2.2 mmol/L CBC without differential Collection Time: 12/09/23 12:27 PM Result Value Ref Range WBC 16.5 (H) 3.8 - 9.9 K/cumm Hgb 9.1 (L) 11.9 - 15.5 g/dL Hct 31.0 (L) 35.6 - 45.5 % Plt 516 (H) 150 - 400 K/cumm MPV 9.8 9.1 - 12.3 fL RBC 3.54 (L) 3.90 - 5.20 M/cumm MCV 87.6 81.3 - 96.4 fL MCH 25.7 (L) 27.1 - 33.3 pg MCHC 29.4 (L) 32.3 - 35.7 g/dL RDW CV 19.0 (H) 11.1 - 14.9 % RDW SD 60.5 (H) 35.7 - 48.1 fL NRBC abs 0.00 0.00 - 0.01 K/cumm Basic metabolic panel Collection Time: 12/09/23 12:27 PM Result Value Ref Range Sodium 136 135 - 145 mmol/L Potassium, pl See Comment 3.3 - 4.9 mmol/L Chloride 102 97 - 110 mmol/L CO2 24 22 - 32 mmol/L Anion gap 10 2 - 15 mmol/L BUN 11 6 - 25 mg/dL Creatinine 0.73 0.60 - 1.10 mg/dL Glucose 160 70 - 199 mg/dL Calcium 8.8 8.5 - 10.3 mg/dL eGFR Collection Time: 12/09/23 12:27 PM Result Value Ref Range eGFR >90 >=60 mL/min/1.73 m2 Imaging Results XR Abdomen Ap 1 Vw Narrative: EXAMINATION: Abdomen, one view. HISTORY: 63-year-old female with abdominal distention COMPARISON: Abdominal radiograph 12/04/2023 Impression: A single view of the abdomen is submitted for evaluation. Partially imaged left pleural effusion appears similar in size to previous study. Cholecystectomy clips present. Normal bowel gas pattern. Dictated by: Yareli York MD The radiology attending physician has personally reviewed this study, and had reviewed and/or edited this written report and agrees with it. Electronically signed by: Shin King M.D. Path Results: Sections show alveolated lung parenchyma with widen septae, increased interstitial inflammatory infiltration, type II pneumonocyte hyperplasia, increased alveolar foamy macrophages and rare microthrombi. Bronchiolitis with predominant chronic inflammation is also noted. We do not see definitive evid ence of vasculitis/endotheliolitis, viral cytopathic changes, granulomatous inflammation, necrosis or malignancy. Special stains for GMS, AFB, and trichrome were performed with proper controls. GMS and AFB stains show no fungal organisms or acid-fast bacteria. The trichrome stain shows no significant increase of interstitial fibrosis. Overall the findings are those of organizing lung injury, with the differential diagnosis includinginfectious etiology, autoimmune, or drug-induced. Correlation with imaging findings and microbiology study is strongly recommended. ASSESSMENT & PLAN Darius Russo is a 63 y.o. woman with relevant PMH of IBD (2022 UC, now c/f Crohn's), adnexal mass, HTN, T2DM directly admitted for expedited therapy for IBD iso progressive weight loss, found to have pulmonary lesions concerning for infectious vs malignancy. #SVT episode #Concern for transient bacteremia vs sepsis iso worsening perforation Patient developed SVT with acute abdominal pain, and subsequently fever and hypotension with MAPs in the 50s, sustained, 12/03 after BM. Suspect possible transient bacteremia (?gut source). Given tenuous clinical status, treating as sepsis. Discussed pt with GI, given recent normal imaging, reassuring exam during presentation yesterday and today, improving/stable lab findings, dx is mainly concerning for worsening microperforation vs transient bacteremia. In setting of hx of sepsis with microperforation, continue on broad spectrum pending clinical improvement/blood culture findings. Consider CT AP to assess for colonic changes. For episode of leukocytosis, pt started on vanc zosyn without bacterial culture growth x24h, pt clinically stable. Abx deescalated to original cipro flagyl given bcx ngtd x48h, more likely transient bacteremia vs sepsis. -12/08 Patient developed tachycardia with severe rigors and fevers after BMs (very similar to previous episodes, see above) Suspect possible transient bacteremia (gut source). Given tenuous clinical status, treating as sepsis. After symptoms resolved patient was hypotensive with maps in the 50s. Lactate from 5 to 1.2. Managing with IVF and ertapenem - vancomycin 15mg/kg q12h, piperacillin-tazobactam 4.5g q6h (12/03-) - ciprofloxacin 500mg BID , metronidazole 500mg BID (11/05-12/03, 12/05-12/08) - Ertapenem q24hrs (12/08- #Throat/referred ear pain - No exudates, CENTOR of 1, present since bronchoscopy, improving with PRN APAP. IMproved with magic mouthwash (swallowed), will monitor for improvement. - order magic mouthwash q8h PRN, throat lozenges #Type 2 NC: 12/03 Trops 5>770>1061>1176 after acute SVT 12/03. Suspect related to demand ischemia. Repeat trops in AM down to 500, EKG unremarkable #IBD c/b recurrent diverticulitis, contained colonic perforation #splenic/liver abscesses, ?seeding from microperforation Patient was diagnosed with ulcerative colitis in 2022, since which time she has been prescribed rectal mesalamine. She has had recurrent admissions for sigmoid diverticulitis which have been managed medically; most recently, patient was started on a 4wk course of ciprofloxacin/metronidazole (11/05). 11/12 colonoscopy with cryptitis and inflammation now c/f colonic Crohn's, MRI dated same with sigmoid diverticulitis, contained perforation, rectal/sigmoid inflammation. Patient's symptoms include daily diarrhea (now improving) and profound weight loss as detailed elsewhere. She was admitted for remicade vs operative management, course c/b likely infectious process (lungs, liver, spleen) preventi ng remicade initiation. GI recs to consult CRS and secondary school registrar for operative intervention in setting of pending infectious workup. Per CRS, plan for TAC+cyst resection on 12/23. Given 2x unsuccessful attemptsto discharge patient, will reach out to CRS to discuss moving up her surgery. recent SVT/septic picture, will continue to monitor in hospital. - GI c/s - ID c/s, recs appreciated: abx, work-up as below - CRS c/s, rec TAC + cyst resection 12/23 - Business Office Representative c/s, will provide coverage for above surgery #Cavitary lung lesions s/p bronch with BAL/biopsy Patient with symptoms including cough and [place] admission CT CAP11/26/23 with cavitary lung lesions and associated lymphadenopathy, not seen on CT ~1 month ago; patient also with liver/spleen and adnexal masses as below. No clear risk factors for immunosuppresionsave acute severe malnutrition. Differential is broad and includes infectious, autoimmune, and malignant processes. Diagnostic work-up in addition to imaging includes: BAL 11/27 with biopsy (negative). Blood cx (mold, fungal, bacteria) NGTD; CrAg, Blasto EIA, DFA, BAL AFB, galactomannan negative. Bronch path results suggest organizing lung injury, no evidence of infection, cytology is negative for infection/malignancy. Will need recommendations from ID/pulm re follow-up management/observation of lung lesions. ANCA vasculitis workup unremarkable. - ID c/s, appreciate following - Pulm c/s, recs/intervention (BAL 11/27) appreciated: disfavor malignancy - Abx as above #FTT/severe malnutrition #Acute weight loss 65lb weight loss over 4mo; suspect related to multifocal process affecting lung/liver/spleen or mass effect from her adnexal mass. Patient endorses poor appetite, early satiety. Repeat folate/b12 labs after replenishment wnl - Nutrition c/s, recs appreciated - s/p HD thiamine, thiamine 100mg PO daily - folic acid 1mg daily, MVI daily - pyridoxine B6 100mg PO daily, dc'd #Liver/spleen abscesses: Reproduced on 11/12 MRI, too small to drain and stable from prior imaging.Improved on subsequent CT CAP. Liver also with diffuse iron deposition. Abx as above. #Adnexal mass: 11/12 MRI, 16.4 x 11.6 x 14.2cm multiseptate cystic R ovary mass. Business Office Representative onc c/s, suspect benign, per pulm, concern for possible malignancy in lungs, plan to reach out to secondary school registrar re issues. #Hypocalcemia: Intermittent throughout admission. Possibly related to poor dietary intake. 11/29 25OH-VitD 39 from 10/26. #HTN: restart losartan 25mg daily #T2DM: A1c 5.7%. HDSSI. Code Status: Full Code Disposition: pending clinical course Best contact: Primary Emergency Contact: JEAN CLAUDE RUSSO Diet: Adult Diet Regular VTE Prophylaxis: enoxaparin 40mg SQ qhs PT: PT Recommendation/Plan: Home with family, Home with intermittent assist, No further PT indicated OT:OT Recommendation: Home with family, Home with intermittent assist, No further OT indicated Jhonny Kirby MD Resident Physician Cosigned by Álvaro Radford MD at 12/10/2023 7:54 AM CDT Associated attestation - Álvaro Radford MD - 12/10/2023 7:54 AM CDT Attending Documentation I have seen and examined the patient on 12/09/2023. I agree with the findings and plan of care as documented in the resident's/fellow's note. and as discussed with the resident/fellow. Some increased soft BM this AM with some cramping but overall mild and self- resolving. Patient was eager for DC. Later in the morning, had episode of rigors, fever, tachycardia, followed by hypotension. Required ACT support. Elevated lactate. Resolved with fluids, antipyretics, low dose IV metoprolol. Given IV ertapenem shortly after onset. Cultures obtained and lactated cleared on repeat. Supplementary Attestation Today, I am treating the patient for sigmoid perforation which is in severe exacerbation, progression, or experiencing treatment side effects as evidenced by intermittent sepsis, as described in the note. Reviewed records from the following unique sources (external institutions or providers from different services): CRS notes, ID notes. The patient is being intensively monitored for drug toxicity from abx by checking CBC, CMP, Qtc. The patient required consideration/discussion of transfer to a higher level of care for the treatment of sepsis. Critical Care Event Note Division of Hospital Medicine Name: Darius Russo : 1960 Service Date: December 10, 2023 Age: 63 y.o. female Admit Date: 11/25/2023 Bed: [id number] LOS: 15 days Date/Time of event: 12/09/23 11:45 AM The patient required Critical Care to treat or prevent imminent or life- threatening deterioration of the following medical problems or diagnoses: severe sepsis with rigors, tachycardia to 170s, elevated lactate, hypotension Critical Care provided: Serial bedside exams, STAT labs ordered, EKG obtained and reviewed, Administration of IV vasoactivemedications, Administration of supplemental oxygen, and Family contacted I spent a total of 50 minutes in full attendance of this critically ill patient making frequent bed-side assessments and coordinating medical care. Critical care time was exclusive of any separately billed procedures or teaching time. I have reviewed and confirmed the patient's history, physical exam, laboratory, and radiographic data. MD Ávlaro Nelson MD * Vicki King MD - 12/09/2023 7:15 AM CDT Images from the original note were not included. [facility] Daily Progress Note Colorectal Surgery Surgery PATIENT NAME: Darius Russo : 1960 ADMIT DATE: 11/25/2023 6:29 PM LOS: 14 Subjective CHIEF COMPLAINT: Physical deconditioning INTERVAL HISTORY: -Pt continues to do well, states that her stools are slightly more solid Objective MEDICATIONS: Scheduled: ciprofloxacin, 500 mg, oral, BID - special enoxaparin, 40 mg, subcutaneous, Daily-2100 folic acid, 1 mg, oral, Daily insulin lispro, 0-10 Units, subcutaneous, TID with meals insulin lispro, 0-5 Units, subcutaneous, Nightly losartan, 25 mg, oral, Daily metroNIDAZOLE, 500 mg, oral, BID multivitamin therapeutic, 1 tablet, oral, Daily pantoprazole DR, 40 mg, oral, Daily thiamine, 100 mg, oral, Daily Infusions: PRN: acetaminophen al & mag hydroxide xuegoapxbrm-gyzioiwdeqmwtxx-bxnxvjztp-nystatin benzocaine-menthoL benzonatate sodium chloride 0.9% dextrose OR dextrose glucagon guaiFENesin ER ondansetron phenoL polyethylene glycol ramelteon sodium chloride 0.9% VITALS: 24hr Min/Max: Temp Min: 36.4 ??C (97.5 ??F) Max: 36.7 ??C (98.1 ??F) Pulse Min: 100 Max: 106 BP Min: 108/66 Max: 120/65 Resp Min: 16 Max: 18 SpO2 Min: 97 % Max: 99 % Most Recent: Vitals: 12/08/23 0810 12/08/23 0840 12/08/23 1540 12/08/232004 BP: 108/66 120/71 120/65 115/63 BP Location: Right arm Left arm Patient Position: Lying;HOB 30 degrees Lying;HOB 30 degrees Pulse: 101 100 106 103 Resp: 18 16 Temp: 36.4 ??C (97.5 ??F) 36.7 ??C (98.1 ??F) 36.6 ??C (97.9 ??F) TempSrc: Oral Oral SpO2: 99% 98% 99% 97% Weight: Height: Intake/Output Summary (Last 24 hours) at 12/09/2023 0715 Last data filed at 12/08/2023 1920 Gross per 24 hour Intake 500 ml Output -- Net 500 ml PHYSICAL EXAM: General: Lying in bed, conversation, well-developed Psych: alert and calm HEENT: normocephalic/atraumatic, anicteric Pulm: Normal work of breathing Cardiac: Regular rate and rhythm GI: abd soft, mildly distended, mildly tender Neuro: ambulatory, non-focal Skin: warm and dry Musculoskeletal: no deformities LAB/ RADIOLOGY/ DIAGNOSTIC REVIEW: Chem/LFT Lab History Latest Ref Rng & Units 12/05/2023 21:24 12/06/2023 21:47 12/07/2023 21:16 12/08/2023 20:30 Labs-Chem/LFT Sodium 135 - 145 mmol/L 137 136 136 137 Creatinine 0.60 - 1.10 mg/dL 0.79 0.82 0.82 0.80 CrCl- Actual Body Weight (Cockcroft-Gault) 64.6 62.2 62.2 63.8 Hematology Lab History Latest Ref Rng & Units 12/05/2023 12/06/2023 21:47 12/07/2023 21:16 12/08/2023 20:30 Labs - Hematology WBC 3.8 - 9.9 K/cumm 12.0 12.2 9.7 10.0 Total Hb, POC 11.9 - 15.5 g/dL 7.8 8.1 7.8 8.4 Hct 35.6 - 45.5 % 26.0 27.7 26.1 27.6 Plt 150 - 400 K/cumm 446 490 487 483 Neutrophil abs 1.5 - 6.5 K/cumm 8.5 8.7 6.5 6.7 Lymphocytes, abs 0.8 - 3.3 K/cumm 2.1 2.3 2.3 2.3 Details More abnormal values are hidden. Newest values shown. Go to activity for more data. More values are hidden. Newest values shown. Go to activity for more data. I have reviewed the laboratory results. ASSESSMENT/ PLAN: 63 y.o. female with hx of DM, HTN, and recently diagnosed IBD (originally thought to be UC but is now more likely to be Crohn's) who has persistent colitis of her sigmoid colon with microperforation,multiple abscesses of the liver and spleen, and now new left upper lobe lung lesions, some of whichare cavitary. She is not a candidate for anti-TNF treatment in the setting of her lung lesions until etiology is determined. Pt also has a new pelvic mass that requires resection. -Continue to optimize nutrition with adequate caloric and protein intake -Continue operative planning -Continue antibiotics -Pt is okay to be discharged home from surgical perspective Vicki King MD 12/09/2023 Cosigned by Yo Perez MD at 12/09/2023 9:28 AM CDT * Vicki King MD - 12/08/2023 7:59 AM CDT Images from the original note were not included. [facility] Daily Progress Note Colorectal Surgery Surgery PATIENT NAME: Darius Russo : 1960 ADMIT DATE: 11/25/2023 6:29 PM LOS: 13 Subjective CHIEF COMPLAINT: Physical deconditioning INTERVAL HISTORY: -Pt doing well this AM, continues to tolerate PO and have BM Objective MEDICATIONS: Scheduled: ciprofloxacin, 500 mg, oral, BID - special enoxaparin, 40 mg, subcutaneous, Daily-2100 folic acid, 1 mg, oral, Daily insulin lispro, 0-10 Units, subcutaneous, TID with meals insulin lispro, 0-5 Units, subcutaneous, Nightly losartan, 25 mg, oral, Daily metroNIDAZOLE, 500 mg, oral, BID multivitamin therapeutic, 1 tablet, oral, Daily pantoprazole DR, 40 mg, oral, Daily pyridoxine, 100 mg, oral, Daily thiamine, 100 mg, oral, Daily Infusions: PRN: acetaminophen al & mag hydroxide jcfemnpdfmk-zdfxywggzegjdwt-fbhnbotzn-nystatin benzocaine-menthoL benzonatate sodium chloride 0.9% dextrose OR dextrose glucagon guaiFENesin ER ondansetron phenoL polyethylene glycol ramelteon sodium chloride 0.9% VITALS: 24hr Min/Max: Temp Min: 36.4 ??C (97.5 ??F) Max: 36.8 ??C (98.2 ??F) Pulse Min: 94 Max: 102 BP Min: 110/59 Max: 131/68 Resp Min: 18 Max: 18 SpO2 Min: 96 % Max: 100 % Most Recent: Vitals: 12/07/23 0845 12/07/23 1750 12/07/23202412/08/23 0223 BP: 120/62 131/68 113/58 110/59 BP Location: Right arm Right arm Patient Position: HOB 30 degrees Lying;HOB 30 degrees Pulse: 96 102 94 96 Resp: 18 18 Temp: 36.4 ??C (97.5 ??F) 36.8 ??C (98.2 ??F) 36.7 ??C (98.1 ??F) 36.5 ??C (97.7 ??F) TempSrc: Oral Oral SpO2: 100% 100% 96% 98% Weight: Height: No intake or output data in the 24 hours ending 12/08/23 0759 PHYSICAL EXAM: General: Lying in bed, conversation, well-developed Psych: alert and calm HEENT: normocephalic/atraumatic, anicteric Pulm: Normal work of breathing Cardiac: Regular rate and rhythm GI: abd soft, mildly distended, mildly tender Neuro: ambulatory, non-focal Skin: warm and dry Musculoskeletal: no deformities LAB/ RADIOLOGY/ DIAGNOSTIC REVIEW: Chem/LFT Lab History Latest Ref Rng & Units 12/04/2023 12/05/2023 21:24 12/06/2023 21:47 12/07/2023 21:16 Labs-Chem/LFT Sodium 135 - 145 mmol/L 137 137 136 136 Creatinine 0.60 - 1.10 mg/dL 0.81 0.79 0.82 0.82 Bilirubin, total 0.1 - 1.2 mg/dL 0.3 AST 10 - 45 Units/L 22 ALT 7 - 45 Units/L 8 Alk phos 40 - 130 Units/L 82 CrCl- Actual Body Weight (Cockcroft-Gault) 63 64.6 62.2 62.2 Details More values are hidden. Newest values shown. Go to activity for more data. Hematology Lab History Latest Ref Rng & Units 12/04/2023 12/05/2023 12/06/2023 21:47 12/07/2023 21:16 Labs - Hematology WBC 3.8 - 9.9 K/cumm 24.2 12.0 12.2 9.7 Total Hb, POC 11.9 - 15.5 g/dL 7.6 7.8 8.1 7.8 Hct 35.6 - 45.5 % 25.3 26.0 27.7 26.1 Plt 150 - 400 K/cumm 483 446 490 487 Neutrophil abs 1.5 - 6.5 K/cumm 22.2 8.5 8.7 6.5 Lymphocytes, abs 0.8 - 3.3 K/cumm 0.7 2.1 2.3 2.3 Details More abnormal values are hidden. Newest values shown. Go to activity for more data. More values are hidden. Newest values shown. Go to activity for more data. I have reviewed the laboratory results. ASSESSMENT/ PLAN: 63 y.o. female with hx of DM, HTN, and recently diagnosed IBD (originally thought to be UC but is now more likely to be Crohn's) who has persistent colitis of her sigmoid colon with microperforation,multiple abscesses of the liver and spleen, and now new left upper lobe lung lesions, some of whichare cavitary. She is not a candidate for anti-TNF treatment in the setting of her lung lesions until etiology is determined. Pt also has a new pelvic mass that requires resection. -Continue to optimize nutrition with adequate caloric and protein intake -Continue operative planning -Continue antibiotics -Pt is okay to be discharged home from surgical perspective Vicki King MD 12/08/2023 Cosigned by Yo Perez MD at 12/08/2023 10:29 AM CDT * Jhonny Kirby MD - 12/08/2023 7:24 AM CDT Medicine Daily Progress Note Patient: Darius Russo : 1960 (63 y.o.) Date of Admission: 11/25/2023 Date of Service: 12/08/23 63 year old female, hx of IBD (dx in 2022 as UC now more likely Crohn's), HTN, T2DM, adnexal cyst, admitted for weight loss (65lbs in a few months). 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 Managed initially with zosyn and then cipro/flagyl, improvement of microabscesses, has had intermittent episodes of transient bacteremia (fever, leukocytosis, tachycardia), 1x episode while inpatient. SUBJECTIVE Interval Events: - Afebrile, HR 90's 110s/50's - Complaining of worsening distension today, KUB unremarkable - FMLA papers preferably thru pcp, can do one time sign if needed. - Bmp wnl - WBC lateal 9.7 - Hgb lateral 7.8 - IPAP consulted, - OK for discharge per CRS. Business Office Representative will provide coverage. Surgery tentatively planned for late November, early December. Final schedule pending. OBJECTIVE Vitals Most Recent: Vitals: 12/08/23 0223 BP: 110/59 Pulse: 96 Resp: 18 Temp: 36.5 ??C (97.7 ??F) SpO2: 98% 24 Hour Min/Max: Temp Min: 36.4 ??C (97.5 ??F) Max: 36.8 ??C (98.2 ??F) Pulse Min: 94 Max: 102 BP Min: 110/59 Max: 131/68 Resp Min: 18 Max: 18 SpO2 Min: 96 % Max: 100 % Intake/Output No intake or output data in the 24 hours ending 12/08/23 0724 Current Medications Scheduled Meds: Scheduled Medications Medication Dose Route Frequency ??? ciprofloxacin (CIPRO) tablet 500 mg 500 mg oral BID - special ??? enoxaparin (LOVENOX) syringe 40 mg 40 mg subcutaneous Daily-2099 ??? folic acid (FOLVITE) tablet 1 mg 1 mg oral Daily ??? insulin lispro (HumaLOG, ADMELOG) 100 unit/mL injection 0-10 Units 0-10 Units subcutaneous TID with meals ??? insulin lispro (HumaLOG, ADMELOG) 100 unit/mL injection 0-5 Units 0-5 Units subcutaneous Nightly ??? losartan (COZAAR) tablet 25 mg 25 mg oral Daily ??? metroNIDAZOLE (FLAGYL) tablet 500 mg 500 mg oral BID ??? multivitamin with folic acid 400 mcg tablet 1 tablet 1 tablet oral Daily ??? pantoprazole DR (PROTONIX) extended release tablet 40 mg 40 mg oral Daily ??? pyridoxine (VITAMIN B6) tablet 100 mg 100 mg oral Daily ??? thiamine (VITAMIN B1) tablet 100 mg 100 mg oral Daily Continuous Meds: Current Facility-Administered Medications Medication Dose Route Frequency Last Admin PRN Meds: PRN Medications Medication Dose Route Frequency Last Admin ??? acetaminophen (TYLENOL) tablet 650 mg 650 mg oral Q4H PRN 650 mg at 12/06/23 2138 ? ? al & mag hydroxide uuuqrkpzrfp-xwawjjrovmsrjsz-kbijyvvhk-nystatin (MAGIC MOUTHWASH) oral suspension 1-1-1-1 15 mL 15 mL swish & spit Q8H PRN 15 mL at 12/07/23 1719 ??? benzocaine-menthoL (CHLORASEPTIC) lozenge 1 lozenge 1 lozenge mouth/throat Q2H PRN ??? benzonatate (TESSALON) capsule 100 mg 100 mg oral TID PRN 100 mg at 12/07/23 1719 ??? Carrier Fluids for Secondary Infusion - 0.9% Sodium Chloride 30 mL intravenous PRN ??? dextrose gel in packet 15 g 15 g oral Q15 Min PRN Or ??? dextrose (D10W) 10% bolus 250 mL 250 mL intravenous Q15 Min PRN ??? glucagon injection 1 mg 1 mg intramuscular Q30 Min PRN ??? guaiFENesin ER (MUCINEX) extended release tablet 1,200 mg 1,200 mg oral BID PRN 1,200 mg at 12/07/232103 ??? ondansetron (ZOFRAN) injection 4 mg 4 mg intravenous Q4H PRN ??? phenoL (CHLORASEPTIC) 1.4 % oral spray 1 spray 1 spray mouth/throat Q4H PRN 1 spray at ??? polyethylene glycol (MIRALAX) packet 17 g 17 g oral Daily PRN ??? ramelteon (ROZEREM) tablet 8 mg 8 mg oral Nightly PRN ??? sodium chloride 0.9% flush 0.5-20 mL 0.5-20 mL intra-catheter PRN 10 mL at 12/07/23 0601 Physical Exam Physical Exam Constitutional: General: She is not in acute distress. HENT: Head: Normocephalic. Right Ear: External ear normal. Left Ear: External ear normal. Nose: Nose normal. Mouth/Throat: Mouth: Mucous membranes are moist. Pharynx: Oropharynx is clear. No oropharyngeal exudate. Eyes: Pupils: Pupils are equal, round, and reactive to light. Cardiovascular: Rate and Rhythm: Normal rate and regular rhythm. Pulses: Normal pulses. Heart sounds: Normal heart sounds. Pulmonary: Effort: Pulmonary effort is normal. Abdominal: General: Bowel sounds are normal. There is distension. Tenderness: There is no abdominal tenderness. Musculoskeletal: General: Normal range of motion. Cervical back: Normal range of motion. Skin: General: Skin is warm. Capillary Refill: Capillary refill takes less than 2 seconds. Neurological: General: No focal deficit present. Mental Status: She is alert and oriented to person, place, and time. Laboratory Results Recent Results (from the past 24 hour(s)) POCT glucose Collection Time: 12/07/23 8:41 AM Result Value Ref Range Glucose, POC 136 70 - 199 mg/dL POCT glucose Collection Time: 12/07/23 11:36 AM Result Value Ref Range Glucose, POC 138 70 - 199 mg/dL POCT glucose Collection Time: 12/07/23 5:14 PM Result Value Ref Range Glucose, POC 147 70 - 199 mg/dL CBC with auto differential Collection Time: 12/07/23 9:16 PM Result Value Ref Range WBC 9.7 3.8 - 9.9 K/cumm Hgb 7.8 (L) 11.9 - 15.5 g/dL Hct 26.1 (L) 35.6 - 45.5 % Plt 487 (H) 150 - 400 K/cumm MPV 9.0 (L) 9.1 - 12.3 fL RBC 3.07 (L) 3.90 - 5.20 M/cumm MCV 85.0 81.3 - 96.4 fL MCH 25.4 (L) 27.1 - 33.3 pg MCHC 29.9 (L) 32.3 - 35.7 g/dL RDW CV 18.7 (H) 11.1 - 14.9 % RDW SD 58.5 (H) 35.7 - 48.1 fL NRBC abs 0.00 0.00 - 0.01 K/cumm Renal function panel Collection Time: 12/07/23 9:16 PM Result Value Ref Range Sodium 136 135 - 145 mmol/L Potassium, pl 4.4 3.3 - 4.9 mmol/L Chloride 102 97 - 110 mmol/L CO2 25 22 - 32 mmol/L Anion gap 9 2 - 15 mmol/L BUN 14 6 - 25 mg/dL Creatinine 0.82 0.60 - 1.10 mg/dL Glucose 149 70 - 199 mg/dL Calcium 8.3 (L) 8.5 - 10.3 mg/dL Phosphorus, pl 3.3 2.3 - 4.5 mg/dL Albumin 2.7 (L) 3.5 - 5.0 g/dL Type and screen Collection Time: 12/07/23 9:16 PM Result Value Ref Range Maira, indirect Negative ABO Rh O Positive Differential, auto Collection Time: 12/07/23 9:16 PM Result Value Ref Range Neutrophil abs 6.5 1.5 - 6.5 K/cumm Imm gran abs 0.0 0.0 - 0.1 K/cumm Lymphocyte abs 2.3 0.8 - 3.3 K/cumm Monocyte abs 0.7 0.2 - 0.8 K/cumm Eosinophil abs 0.2 0.0 - 0.5 K/cumm Basophil abs 0.1 0.0 - 0.1 K/cumm Neutrophil pct 66.6 % Imm gran pct 0.3 % Lymphocyte pct 23.7 % Monocyte pct 7.1 % Eosinophil pct 1.7 % Basophil pct 0.6 % eGFR Collection Time: 12/07/23 9:16 PM Result Value Ref Range eGFR 79 >=60 mL/min/1.73 m2 Magnesium Collection Time: 12/07/23 9:16 PM Result Value Ref Range Magnesium 2.3 1.4 - 2.5 mg/dL POCT glucose Collection Time: 12/07/23 9:36 PM Result Value Ref Range Glucose, POC 159 70 - 199 mg/dL Imaging Results XR Abdomen Ap 1 Vw Narrative: EXAMINATION: Abdomen, one view. HISTORY: Concern for bowel perforation, recently diagnosed with inflammatory bowel disease and colitis for sigmoid colon with microperforation. COMPARISON: CT 11/04/2023 Impression: A single view of the abdomen is [...] Electronically signed by: Juan Carlos Buchanan M.D. XR Chest 1 View Narrative: EXAMINATION: 1 view chest radiograph Impression: Comparison is made to chest radiograph dated [...] pneumothorax. Stable cardiomediastinal silhouette. Electronically signed by: Bobby Linda M.D. Path Results: Sections show alveolated lung parenchyma with widen septae, increased interstitial inflammatory infiltration, type II pneumonocyte hyperplasia, increased alveolar foamy macrophages and rare microthrombi. Bronchiolitis with predominant chronic inflammation is also noted. We do not see definitive evid ence of vasculitis/endotheliolitis, viral cytopathic changes, granulomatous inflammation, necrosis or malignancy. Special stains for GMS, AFB, and trichrome were performed with proper controls. GMS and AFB stains show no fungal organisms or acid-fast bacteria. The trichrome stain shows no significant increase of interstitial fibrosis. Overall the findings are those of organizing lung injury, with the differential diagnosis includinginfectious etiology, autoimmune, or drug-induced. Correlation with imaging findings and microbiology study is strongly recommended. ASSESSMENT & PLAN Darius Russo is a 63 y.o. woman with relevant PMH of IBD (2022 UC, now c/f Crohn's), adnexal mass, HTN, T2DM directly admitted for expedited therapy for IBD iso progressive weight loss, found to have pulmonary lesions concerning for infectious vs malignancy. #SVT episode #Concern for transient bacteremia vs sepsis iso worsening perforation Patient developed SVT with acute abdominal pain, and subsequently fever and hypotension with MAPs in the 50s, sustained, 12/03 after BM. Suspect possible transient bacteremia (?gut source). Given tenuous clinical status, treating as sepsis. Discussed pt with GI, given recent normal imaging, reassuring exam during presentation yesterday and today, improving/stable lab findings, dx is mainly concerning for worsening microperforation vs transient bacteremia. In setting of hx of sepsis with microperforation, continue on broad spectrum pending clinical improvement/blood culture findings. Consider CT AP to assess for colonic changes. For episode of leukocytosis, pt started on vanc zosyn without bacterial culture growth x24h, pt clinically stable. Abx deescalated to original cipro flagyl given bcx ngtd x48h, more likely transient bacteremia vs sepsis. - vancomycin 15mg/kg q12h, piperacillin-tazobactam 4.5g q6h (12/03-) - ciprofloxacin 500mg BID (dc'd 12/06), metronidazole 500mg BID (11/05-12/03, 12/05-) - pt currently tolerating PO. #Throat/referred ear pain - No exudates, CENTOR of 1, present since bronchoscopy, improving with PRN APAP. IMproved with magic mouthwash (swallowed), will monitor for improvement. - order magic mouthwash q8h PRN #Type 2 NC: 12/03 Trops 5>770>1061>1176 after acute SVT 12/03. Suspect related to demand ischemia. Repeat trops in AM down to 500, EKG ordered. #IBD c/b recurrent diverticulitis, contained colonic perforation #splenic/liver abscesses, ?seeding from microperforation Patient was diagnosed with ulcerative colitis in 2022, since which time she has been prescribed rectal mesalamine. She has had recurrent admissions for sigmoid diverticulitis which have been managed medically; most recently, patient was started on a 4wk course of ciprofloxacin/metronidazole (11/05). 11/12 colonoscopy with cryptitis and inflammation now c/f colonic Crohn's, MRI dated same with sigmoid diverticulitis, contained perforation, rectal/sigmoid inflammation. Patient's symptoms include daily diarrhea (now improving) and profound weight loss as detailed elsewhere. She was admitted for remicade vs operative management, course c/b likely infectious process (lungs, liver, spleen) preventi ng remicade initiation. GI recs to consult CRS and secondary school registrar for operative intervention in setting of pending infectious workup. Per CRS, plan for TAC+cyst resection on 12/16, can be discharged in meantime. ISO recent SVT/septic picture, will continue to monitor in hospital. - GI c/s - ID c/s, recs appreciated: abx, work-up as below - CRS c/s, rec TAC + cyst resection 12/16 - Business Office Representative c/s, will provide coverage for above surgery #Cavitary lung lesions s/p bronch with BAL/biopsy Patient with symptoms including cough and [place] admission CT CAP11/26/23 with cavitary lung lesions and associated lymphadenopathy, not seen on CT ~1 month ago; patient also with liver/spleen and adnexal masses as below. No clear risk factors for immunosuppresionsave acute severe malnutrition. Differential is broad and includes infectious, autoimmune, and malignant processes. Diagnostic work-up in addition to imaging includes: BAL 11/27 with biopsy (negative). Blood cx (mold, fungal, bacteria) NGTD; CrAg, Blasto EIA, DFA, BAL AFB, galactomannan negative. Bronch path results suggest organizing lung injury, no evidence of infection, cytology is negative for infection/malignancy. Will need recommendations from ID/pulm re follow-up management/observation of lung lesions. ANCA vasculitis workup unremarkable. - ID c/s, appreciate following - Pulm c/s, recs/intervention (BAL 11/27) appreciated: disfavor malignancy - Abx as above #FTT/severe malnutrition #Acute weight loss 65lb weight loss over 4mo; suspect related to multifocal process affecting lung/liver/spleen or mass effect from her adnexal mass. Patient endorses poor appetite, early satiety. Repeat folate/b12 labs after replenishment wnl - Nutrition c/s, recs appreciated - s/p HD thiamine, thiamine 100mg PO daily - folic acid 1mg daily, MVI daily - pyridoxine B6 100mg PO daily #Liver/spleen abscesses: Reproduced on 11/12 MRI, too small to drain and stable from prior imaging.Improved on subsequent CT CAP. Liver also with diffuse iron deposition. Abx as above. #Adnexal mass: 11/12 MRI, 16.4 x 11.6 x 14.2cm multiseptate cystic R ovary mass. Business Office Representative onc c/s, suspect benign, per pulm, concern for possible malignancy in lungs, plan to reach out to secondary school registrar re issues. #Hypocalcemia: Intermittent throughout admission. Possibly related to poor dietary intake. 11/29 25OH-VitD 39 from 10/26. #HTN: restart losartan 25mg daily #T2DM: A1c 5.7%. HDSSI. Code Status: Full Code Disposition: pending clinical course Best contact: Primary Emergency Contact: JEAN CLAUDE RUSSO Diet: Adult Diet Regular VTE Prophylaxis: enoxaparin 40mg SQ qhs PT: PT Recommendation/Plan: Home with family, Home with intermittent assist, No further PT indicated OT:OT Recommendation: Home with family, Home with intermittent assist, No further OT indicated Jhonny Kirby MD Resident Physician Cosigned by Álvaro Radford MD at 12/08/2023 2:47 PM CDT Associated attestation - Álvaro Radford MD - 12/08/2023 2:47 PM CDT Attending Documentation I have seen and examined the patient on 12/08/23. I agree with the findings and plan of care as documented in the resident's/fellow's note. and as discussed with the resident/fellow. Doing well, ambulating, eating, having good BM. Feels more distended today. Will have IPAP see during admission. Plan DC next 24 hrs. Supplementary Attestation Reviewed records from the following unique sources (external institutions or providers from different services): GI notes, CRS Notes, Discussed management of IBD with GI The patient is being intensively monitored for drug toxicity from abx by checking CBC, CMP, QTc Álvaro Radford MD * Vicki King MD - 12/07/2023 9:50 AM CDT Images from the original note were not included. [facility] Daily Progress Note Colorectal Surgery Surgery PATIENT NAME: Darius Russo : 1960 ADMIT DATE: 11/25/2023 6:29 PM LOS: 12 Subjective CHIEF COMPLAINT: Physical deconditioning INTERVAL HISTORY: -Pt doing well this AM, continues to tolerate PO and have BM -BCx NGTD -WBC 12>12 Objective MEDICATIONS: Scheduled: ciprofloxacin, 500 mg, oral, BID - special enoxaparin, 40 mg, subcutaneous, Daily-2100 folic acid, 1 mg, oral, Daily insulin lispro, 0-10 Units, subcutaneous, TID with meals insulin lispro, 0-5 Units, subcutaneous, Nightly [Held by Provider] losartan, 25 mg, oral, Daily magnesium sulfate, 2 g, intravenous, Once metroNIDAZOLE, 500 mg, oral, BID multivitamin therapeutic, 1 tablet, oral, Daily pantoprazole DR, 40 mg, oral, Daily pyridoxine, 100 mg, oral, Daily thiamine, 100 mg, oral, Daily Infusions: PRN: acetaminophen al & mag hydroxide bzmquvmuzia-oovkwjxqgdbwtot-floobghff-nystatin benzonatate sodium chloride 0.9% dextrose OR dextrose glucagon guaiFENesin ER ondansetron phenoL polyethylene glycol ramelteon sodium chloride 0.9% VITALS: 24hr Min/Max: Temp Min: 36.4 ??C (97.5 ??F) Max: 36.7 ??C (98.1 ??F) Pulse Min: 96 Max: 124 BP Min: 120/62 Max: 131/78 Resp Min: 18 Max: 18 SpO2 Min: 97 % Max: 100 % Most Recent: Vitals: 12/06/23 1425 12/06/23200412/07/23 0335 12/07/23 0845 BP: 120/63 131/78 130/66 120/62 BP Location: Right arm Right arm Right arm Patient Position: HOB 30 degrees HOB 30 degrees Pulse: 124 99 96 Resp: 18 18 18 Temp: 36.7 ??C (98.1 ??F) 36.7 ??C (98.1 ??F) 36.5 ??C (97.7 ??F) 36.4 ??C (97.5 ??F) TempSrc: Oral Oral Oral SpO2: 97% 98% 100% Weight: Height: Intake/Output Summary (Last 24 hours) at 12/07/2023 0950 Last data filed at 12/06/2023 1200 Gross per 24 hour Intake 240 ml Output -- Net 240 ml PHYSICAL EXAM: General: Lying in bed, conversation, well-developed Psych: alert and calm HEENT: normocephalic/atraumatic, anicteric Pulm: Normal work of breathing Cardiac: Regular rate and rhythm GI: abd soft, mildly distended, mildly tender Neuro: ambulatory, non-focal Skin: warm and dry Musculoskeletal: no deformities LAB/ RADIOLOGY/ DIAGNOSTIC REVIEW: Chem/LFT Lab History Latest Ref Rng & Units 12/03/2023 00:09 12/04/2023 12/05/2023 21:24 12/06/2023 21:47 Labs-Chem/LFT Sodium 135 - 145 mmol/L 134 137 137 136 Creatinine 0.60 - 1.10 mg/dL 0.77 0.81 0.79 0.82 Bilirubin, total 0.1 - 1.2 mg/dL 0.3 AST 10 - 45 Units/L 22 ALT 7 - 45 Units/L 8 Alk phos 40 - 130 Units/L 82 CrCl- Actual Body Weight (Cockcroft-Gault) 66.4 63 64.6 62.2 Details More values are hidden. Newest values shown. Go to activity for more data. Hematology Lab History Latest Ref Rng & Units 12/03/2023 00:09 12/04/2023 12/05/2023 12/06/2023 21:47 Labs - Hematology WBC 3.8 - 9.9 K/cumm 12.5 24.2 12.0 12.2 Total Hb, POC 11.9 - 15.5 g/dL 8.3 7.6 7.8 8.1 Hct 35.6 - 45.5 % 28.2 25.3 26.0 27.7 Plt 150 - 400 K/cumm 481 483 446 490 Neutrophil abs 1.5 - 6.5 K/cumm 8.8 22.2 8.5 8.7 Lymphocytes, abs 0.8 - 3.3 K/cumm 2.5 0.7 2.1 2.3 Details More abnormal values are hidden. Newest values shown. Go to activity for more data. More values are hidden. Newest values shown. Go to activity for more data. I have reviewed the laboratory results. ASSESSMENT/ PLAN: 63 y.o. female with hx of DM, HTN, and recently diagnosed IBD (originally thought to be UC but is now more likely to be Crohn's) who has persistent colitis of her sigmoid colon with microperforation,multiple abscesses of the liver and spleen, and now new left upper lobe lung lesions, some of whichare cavitary. She is not a candidate for anti-TNF treatment in the setting of her lung lesions until etiology is determined. Pt also has a new pelvic mass that requires resection. -Continue to optimize nutrition with adequate caloric and protein intake -Continue operative planning -Continue antibiotics Vicki King MD 12/07/2023 Cosigned by Lon Morales Jr., MD at 12/07/2023 1:36 PM CDT * Michael Huizar MD - 12/07/2023 7:05 AM CDT Medicine Daily Progress Note Patient: Darius Russo : 1960 (63 y.o.) Date of Admission: 11/25/2023 Date of Service: 12/07/23 SUBJECTIVE Interval Events: - NAEON - ANCA vasculitis labs unremkarable - magic mouthwash used overnight with great effect - back on cipro/flagyl given likely transient bacteremia vs actual sepsis (bcx ngtd x48). ID aware - potential for discharge 12/08, will need IPAP prior to dc - restarted losartan OBJECTIVE Vitals Most Recent: Vitals: 12/07/23 0335 BP: 130/66 Pulse: 99 Resp: 18 Temp: 36.5 ??C (97.7 ??F) SpO2: 98% 24 Hour Min/Max: Temp Min: 36.5 ??C (97.7 ??F) Max: 36.7 ??C (98.1 ??F) Pulse Min: 94 Max: 124 BP Min: 120/63 Max: 140/66 Resp Min: 18 Max: 18 SpO2 Min: 97 % Max: 98 % Intake/Output Intake/Output Summary (Last 24 hours) at 12/07/2023 0705 Last data filed at 12/06/2023 1200 Gross per 24 hour Intake 486 ml Output -- Net 486 ml Current Medications Scheduled Meds: Scheduled Medications Medication Dose Route Frequency ??? ciprofloxacin (CIPRO) tablet 500 mg 500 mg oral BID - special ??? enoxaparin (LOVENOX) syringe 40 mg 40 mg subcutaneous Daily-2100 ??? folic acid (FOLVITE) tablet 1 mg 1 mg oral Daily ??? insulin lispro (HumaLOG, ADMELOG) 100 unit/mL injection 0-10 Units 0-10 Units subcutaneous TID with meals ??? insulin lispro (HumaLOG, ADMELOG) 100 unit/mL injection 0-5 Units 0-5 Units subcutaneous Nightly ??? [Held by Provider] losartan (COZAAR) tablet 25 mg 25 mg oral Daily ??? metroNIDAZOLE (FLAGYL) tablet 500 mg 500 mg oral BID ??? multivitamin with folic acid 400 mcg tablet 1 tablet 1 tablet oral Daily ??? pantoprazole DR (PROTONIX) extended release tablet 40 mg 40 mg oral Daily ??? pyridoxine (VITAMIN B6) tablet 100 mg 100 mg oral Daily ??? thiamine (VITAMIN B1) tablet 100 mg 100 mg oral Daily Continuous Meds: Current Facility-Administered Medications Medication Dose Route Frequency Last Admin PRN Meds: PRN Medications Medication Dose Route Frequency Last Admin ??? acetaminophen (TYLENOL) tablet 650 mg 650 mg oral Q4H PRN 650 mg at 12/06/232137 ? ? al & mag hydroxide rmfjtvfnzno-txvzcwutryetjdh-aheefkyua-nystatin (MAGIC MOUTHWASH) oral suspension 1-1-1-1 15 mL 15 mL swish & spit Q8H PRN 15 mL at 12/06/23 1900 ??? benzonatate (TESSALON) capsule 100 mg 100 mg oral TID PRN 100 mg at 12/07/23 0602 ??? Carrier Fluids for Secondary Infusion - 0.9% Sodium Chloride 30 mL intravenous PRN ??? dextrose gel in packet 15 g 15 g oral Q15 Min PRN Or ??? dextrose (D10W) 10% bolus 250 mL 250 mL intravenous Q15 Min PRN ??? glucagon injection 1 mg 1 mg intramuscular Q30 Min PRN ??? guaiFENesin ER (MUCINEX) extended release tablet 1,200 mg 1,200 mg oral BID PRN 1,200 mg at 12/06/232137 ??? ondansetron (ZOFRAN) injection 4 mg 4 mg intravenous Q4H PRN ??? phenoL (CHLORASEPTIC) 1.4 % oral spray 1 spray 1 spray mouth/throat Q4H PRN 1 spray at ??? polyethylene glycol (MIRALAX) packet 17 g 17 g oral Daily PRN ??? ramelteon (ROZEREM) tablet 8 mg 8 mg oral Nightly PRN ??? sodium chloride 0.9% flush 0.5-20 mL 0.5-20 mL intra-catheter PRN 10 mL at 12/07/23 0601 Physical Exam Physical Exam Constitutional: General: She is not in acute distress. HENT: Head: Normocephalic. Right Ear: External ear normal. Left Ear: External ear normal. Nose: Nose normal. Mouth/Throat: Mouth: Mucous membranes are moist. Pharynx: Oropharynx is clear. No oropharyngeal exudate. Eyes: Pupils: Pupils are equal, round, and reactive to light. Cardiovascular: Rate and Rhythm: Normal rate and regular rhythm. Pulses: Normal pulses. Heart sounds: Normal heart sounds. Pulmonary: Effort: Pulmonary effort is normal. Abdominal: General: Bowel sounds are normal. There is distension. Tenderness: There is no abdominal tenderness. Musculoskeletal: General: Normal range of motion. Cervical back: Normal range of motion. Skin: General: Skin is warm. Capillary Refill: Capillary refill takes less than 2 seconds. Neurological: General: No focal deficit present. Mental Status: She is alert and oriented to person, place, and time. Laboratory Results Recent Results (from the past 24 hour(s)) POCT glucose Collection Time: 12/06/23 7:59 AM Result Value Ref Range Glucose, POC 105 70 - 199 mg/dL POCT glucose Collection Time: 12/06/23 11:45 AM Result Value Ref Range Glucose, POC 168 70 - 199 mg/dL POCT glucose Collection Time: 12/06/23 4:57 PM Result Value Ref Range Glucose, POC 126 70 - 199 mg/dL POCT glucose Collection Time: 12/06/23 8:07 PM Result Value Ref Range Glucose, POC 147 70 - 199 mg/dL CBC with auto differential Collection Time: 12/06/23 9:47 PM Result Value Ref Range WBC 12.2 (H) 3.8 - 9.9 K/cumm Hgb 8.1 (L) 11.9 - 15.5 g/dL Hct 27.7 (L) 35.6 - 45.5 % Plt 490 (H) 150 - 400 K/cumm MPV 9.1 9.1 - 12.3 fL RBC 3.23 (L) 3.90 - 5.20 M/cumm MCV 85.8 81.3 - 96.4 fL MCH 25.1 (L) 27.1 - 33.3 pg MCHC 29.2 (L) 32.3 - 35.7 g/dL RDW CV 18.5 (H) 11.1 - 14.9 % RDW SD 58.4 (H) 35.7 - 48.1 fL NRBC abs 0.00 0.00 - 0.01 K/cumm Renal function panel Collection Time: 12/06/23 9:47 PM Result Value Ref Range Sodium 136 135 - 145 mmol/L Potassium, pl 4.0 3.3 - 4.9 mmol/L Chloride 104 97 - 110 mmol/L CO2 24 22 - 32 mmol/L Anion gap 8 2 - 15 mmol/L BUN 11 6 - 25 mg/dL Creatinine 0.82 0.60 - 1.10 mg/dL Glucose 158 70 - 199 mg/dL Calcium 8.2 (L) 8.5 - 10.3 mg/dL Phosphorus, pl 3.3 2.3 - 4.5 mg/dL Albumin 2.5 (L) 3.5 - 5.0 g/dL Differential, auto Collection Time: 12/06/23 9:47 PM Result Value Ref Range Neutrophil abs 8.7 (H) 1.5 - 6.5 K/cumm Imm gran abs 0.1 0.0 - 0.1 K/cumm Lymphocyte abs 2.3 0.8 - 3.3 K/cumm Monocyte abs 0.9 (H) 0.2 - 0.8 K/cumm Eosinophil abs 0.2 0.0 - 0.5 K/cumm Basophil abs 0.1 0.0 - 0.1 K/cumm Neutrophil pct 71.3 % Imm gran pct 0.5 % Lymphocyte pct 19.0 % Monocyte pct 7.0 % Eosinophil pct 1.6 % Basophil pct 0.6 % eGFR Collection Time: 12/06/23 9:47 PM Result Value Ref Range eGFR 79 >=60 mL/min/1.73 m2 Imaging Results XR Abdomen Ap 1 Vw Narrative: EXAMINATION: Abdomen, one view. HISTORY: Concern for bowel perforation, recently diagnosed with inflammatory bowel disease and colitis for sigmoid colon with microperforation. COMPARISON: CT 11/04/2023 Impression: A single view of the abdomen is [...] Electronically signed by: Juan Carlos Buchanan M.D. XR Chest 1 View Narrative: EXAMINATION: 1 view chest radiograph Impression: Comparison is made to chest radiograph dated [...] pneumothorax. Stable cardiomediastinal silhouette. Electronically signed by: Bobby Linda M.D. Path Results: Sections show alveolated lung parenchyma with widen septae, increased interstitial inflammatory infiltration, type II pneumonocyte hyperplasia, increased alveolar foamy macrophages and rare microthrombi. Bronchiolitis with predominant chronic inflammation is also noted. We do not see definitive evid ence of vasculitis/endotheliolitis, viral cytopathic changes, granulomatous inflammation, necrosis or malignancy. Special stains for GMS, AFB, and trichrome were performed with proper controls. GMS and AFB stains show no fungal organisms or acid-fast bacteria. The trichrome stain shows no significant increase of interstitial fibrosis. Overall the findings are those of organizing lung injury, with the differential diagnosis includinginfectious etiology, autoimmune, or drug-induced. Correlation with imaging findings and microbiology study is strongly recommended. ASSESSMENT & PLAN Darius Russo is a 63 y.o. woman with relevant PMH of IBD (2022 UC, now c/f Crohn's), adnexal mass, HTN, T2DM directly admitted for expedited therapy for IBD iso progressive weight loss, found to have pulmonary lesions concerning for infectious vs malignancy. #SVT episode #Concern for transient bacteremia vs sepsis iso worsening perforation Patient developed SVT with acute abdominal pain, and subsequently fever and hypotension with MAPs in the 50s, sustained, 12/03 after BM. Suspect possible transient bacteremia (?gut source). Given tenuous clinical status, treating as sepsis. Discussed pt with GI, given recent normal imaging, reassuring exam during presentation yesterday and today, improving/stable lab findings, dx is mainly concerning for worsening microperforation vs transient bacteremia. In setting of hx of sepsis with microperforation, continue on broad spectrum pending clinical improvement/blood culture findings. Consider CT AP to assess for colonic changes. For episode of leukocytosis, pt started on vanc zosyn without bacterial culture growth x24h, pt clinically stable. Abx deescalated to original cipro flagyl given bcx ngtd x48h, more likely transient bacteremia vs sepsis. - vancomycin 15mg/kg q12h, piperacillin-tazobactam 4.5g q6h (12/03-) - ciprofloxacin 500mg BID, metronidazole 500mg BID (11/05-12/03, 12/05-) - pt currently tolerating PO. #Throat/referred ear pain - No exudates, CENTOR of 1, present since bronchoscopy, improving with PRN APAP. IMproved with magic mouthwash (swallowed), will monitor for improvement. - order magic mouthwash q8h PRN #Type 2 NC: 12/03 Trops 5>770>1061>1176 after acute SVT 12/03. Suspect related to demand ischemia. Repeat trops in AM down to 500, EKG ordered. #IBD c/b recurrent diverticulitis, contained colonic perforation #splenic/liver abscesses, ?seeding from microperforation Patient was diagnosed with ulcerative colitis in 2022, since which time she has been prescribed rectal mesalamine. She has had recurrent admissions for sigmoid diverticulitis which have been managed medically; most recently, patient was started on a 4wk course of ciprofloxacin/metronidazole (11/05). 11/12 colonoscopy with cryptitis and inflammation now c/f colonic Crohn's, MRI dated same with sigmoid diverticulitis, contained perforation, rectal/sigmoid inflammation. Patient's symptoms include daily diarrhea (now improving) and profound weight loss as detailed elsewhere. She was admitted for remicade vs operative management, course c/b likely infectious process (lungs, liver, spleen) preventi ng remicade initiation. GI recs to consult CRS and secondary school registrar for operative intervention in setting of pending infectious workup. Per CRS, plan for TAC+cyst resection on 12/16, can be discharged in meantime. ISO recent SVT/septic picture, will continue to monitor in hospital. - GI c/s - ID c/s, recs appreciated: abx, work-up as below - CRS c/s, rec TAC + cyst resection 12/16 - Business Office Representative c/s #Cavitary lung lesions s/p bronch with BAL/biopsy Patient with symptoms including cough and [place]; admission CT CAP11/26/23 with cavitary lung lesions and associated lymphadenopathy, not seen on CT ~1 month ago; patient also with liver/spleen and adnexal masses as below. No clear risk factors for immunosuppresionsave acute severe malnutrition. Differential is broad and includes infectious, autoimmune, and malignant processes. Diagnostic work-up in addition to imaging includes: BAL 11/27 with biopsy (negative). Blood cx (mold, fungal, bacteria) NGTD; CrAg, Blasto EIA, DFA, BAL AFB, galactomannan negative. Bronch path results suggest organizing lung injury, no evidence of infection, cytology is negative for infection/malignancy. Will need recommendations from ID/pulm re follow-up management/observation of lung lesions. ANCA vasculitis workup unremarkable. - ID c/s, appreciate following - Pulm c/s, recs/intervention (BAL 11/27) appreciated: disfavor malignancy - Abx as above #FTT/severe malnutrition #Acute weight loss 65lb weight loss over 4mo; suspect related to multifocal process affecting lung/liver/spleen or mass effect from her adnexal mass. Patient endorses poor appetite, early satiety. Repeat folate/b12 labs after replenishment wnl - Nutrition c/s, recs appreciated - s/p HD thiamine, thiamine 100mg PO daily - folic acid 1mg daily, MVI daily - pyridoxine B6 100mg PO daily #Liver/spleen abscesses: Reproduced on 11/12 MRI, too small to drain and stable from prior imaging.Improved on subsequent CT CAP. Liver also with diffuse iron deposition. Abx as above. #Adnexal mass: 11/12 MRI, 16.4 x 11.6 x 14.2cm multiseptate cystic R ovary mass. Business Office Representative onc c/s, suspect benign, per pulm, concern for possible malignancy in lungs, plan to reach out to secondary school registrar re issues. #Hypocalcemia: Intermittent throughout admission. Possibly related to poor dietary intake. 11/29 25OH-VitD 39 from 10/26. #HTN: restart losartan 25mg daily #T2DM: A1c 5.7%. HDSSI. Code Status: Full Code Disposition: pending clinical course Best contact: Primary Emergency Contact: JEAN CLAUDE RUSSO Diet: Adult Diet Regular VTE Prophylaxis: enoxaparin 40mg SQ qhs PT: PT Recommendation/Plan: Home with family, Home with intermittent assist, No further PT indicated OT:OT Recommendation: Home with family, Home with intermittent assist, No further OT indicated Michael Huizar MD Resident Physician Cosigned by Álvaro Radford MD at 12/07/2023 1:05 PM CDT Associated attestation - Álvaro Radford MD - 12/07/2023 1:05 PM CDT Attending Documentation I have seen and examined the patient on 12/07/23. I agree with the findings and plan of care as documented in the resident's/fellow's note. and as discussed with the resident/fellow. Patient continues to feel well. Eating, ambulating, no events. Patient and family again interested in returning home prior to surgery, will discuss with consulting teams. Supplementary Attestation Today, I am treating the patient for lung infection, likely penetrating Crohns which is in severe exacerbation, progression, or experiencing treatment side effects as evidenced by need for antimicrobials and surgery as described in the note. Reviewed records from the following unique sources (external institutions or providers from different services): GI notes, CRS Notes, Discussed management of lung infection with IBD with GI The patient is being intensively monitored for drug toxicity from abx by checking CBC, CMP, QTc Álvaro Radford MD * Vicki King MD - 12/06/2023 10:32 AM CDT Images from the original note were not included. [facility] Daily Progress Note Colorectal Surgery Surgery PATIENT NAME: Darius Russo : 1960 ADMIT DATE: 11/25/2023 6:29 PM LOS: 11 Subjective CHIEF COMPLAINT: Physical deconditioning INTERVAL HISTORY: -Pt doing better this morning, tolerating PO and continues to have BM -Trops downtrending -WBC 24>12 Objective MEDICATIONS: Scheduled: [Held by Provider] ciprofloxacin, 500 mg, oral, BID - special enoxaparin, 40 mg, subcutaneous, Daily-2100 folic acid, 1 mg, oral, Daily insulin lispro, 0-10 Units, subcutaneous, TID with meals insulin lispro, 0-5 Units, subcutaneous, Nightly [Held by Provider] losartan, 25 mg, oral, Daily [Held by Provider] metroNIDAZOLE, 500 mg, oral, BID multivitamin therapeutic, 1 tablet, oral, Daily pantoprazole DR, 40 mg, oral, Daily piperacillin-tazobactam, 4.5 g, intravenous, Q6H DARIN pyridoxine, 100 mg, oral, Daily thiamine, 100 mg, oral, Daily vancomycin, 15 mg/kg, intravenous, Q12H Infusions: PRN: acetaminophen benzonatate sodium chloride 0.9% dextrose OR dextrose glucagon guaiFENesin ER ondansetron phenoL polyethylene glycol ramelteon sodium chloride 0.9% VITALS: 24hr Min/Max: Temp Min: 36.6 ??C (97.9 ??F) Max: 36.7 ??C (98.1 ??F) Pulse Min: 86 Max: 94 BP Min: 98/55 Max: 144/81 Resp Min: 18 Max: 20 SpO2 Min: 97 % Max: 99 % Most Recent: Vitals: 12/05/23201312/06/23 0411 12/06/23 0456 12/06/23 0731 BP: 103/58 144/81 144/81 140/66 BP Location: Left arm Left arm Right arm Patient Position: Lying;HOB 30 degrees Lying;HOB 30 degrees Pulse: 87 94 94 94 Resp: Temp: 36.7 ??C (98.1 ??F) 36.6 ??C (97.9 ??F) 36.6 ??C (97.9 ??F) 36.7 ??C (98.1 ??F) TempSrc: Oral Oral Oral SpO2: 99% 99% 99% 98% Weight: Height: Intake/Output Summary (Last 24 hours) at 12/06/2023 1032 Last data filed at 12/05/2023 1658 Gross per 24 hour Intake 515.5 ml Output -- Net 515.5 ml PHYSICAL EXAM: General: Lying in bed, conversation, well-developed Psych: alert and calm HEENT: normocephalic/atraumatic, anicteric Pulm: Normal work of breathing Cardiac: Regular rate and rhythm GI: abd soft, mildly distended, mildly tender Neuro: ambulatory, non-focal Skin: warm and dry Musculoskeletal: no deformities LAB/ RADIOLOGY/ DIAGNOSTIC REVIEW: Chem/LFT Lab History Latest Ref Rng & Units 12/01/2023 21:46 12/03/2023 00:09 12/04/2023 12/05/2023 21:24 Labs-Chem/LFT Sodium 135 - 145 mmol/L 134 134 137 137 Creatinine 0.60 - 1.10 mg/dL 0.78 0.77 0.81 0.79 Bilirubin, total 0.1 - 1.2 mg/dL 0.3 AST 10 - 45 Units/L 22 ALT 7 - 45 Units/L 8 Alk phos 40 - 130 Units/L 82 CrCl- Actual Body Weight (Cockcroft-Gault) 66.7 66.4 63 64.6 Details More values are hidden. Newest values shown. Go to activity for more data. Hematology Lab History Latest Ref Rng & Units 12/01/2023 21:46 12/03/2023 00:09 12/04/2023 12/05/2023 Labs - Hematology WBC 3.8 - 9.9 K/cumm 13.4 12.5 24.2 12.0 Total Hb, POC 11.9 - 15.5 g/dL 8.4 8.3 7.6 7.8 Hct 35.6 - 45.5 % 27.3 28.2 25.3 26.0 Plt 150 - 400 K/cumm 519 481 483 446 Neutrophil abs 1.5 - 6.5 K/cumm 10.2 8.8 22.2 8.5 Lymphocytes, abs 0.8 - 3.3 K/cumm 1.9 2.5 0.7 2.1 Details More abnormal values are hidden. Newest values shown. Go to activity for more data. More values are hidden. Newest values shown. Go to activity for more data. I have reviewed the laboratory results. ASSESSMENT/ PLAN: 63 y.o. female with hx of DM, HTN, and recently diagnosed IBD (originally thought to be UC but is now more likely to be Crohn's) who has persistent colitis of her sigmoid colon with microperforation,multiple abscesses of the liver and spleen, and now new left upper lobe lung lesions, some of whichare cavitary. She is not a candidate for anti-TNF treatment in the setting of her lung lesions until etiology is determined. Pt also has a new pelvic mass that requires resection. -Continue to optimize nutrition with adequate caloric and protein intake -Continue operative planning -Continue antibiotics Vicki King MD 12/06/2023 Cosigned by Lon Morales Jr., MD at 12/06/2023 11:27 PM CDT * Michael Huizar MD - 12/06/2023 7:15 AM CDT Medicine Daily Progress Note Patient: Darius Russo : 1960 (63 y.o.) Date of Admission: 11/25/2023 Date of Service: 12/06/23 SUBJECTIVE Interval Events: - NAEON - endorses pain in ears/throat when swallowing, persistent since bronchoscopy (11/27) - order magic mouthwash q8h PRN OBJECTIVE Vitals Most Recent: Vitals: 12/06/23 0456 BP: 144/81 Pulse: 94 Resp: 19 Temp: 36.6 ??C (97.9 ??F) SpO2: 99% 24 Hour Min/Max: Temp Min: 36.6 ??C (97.9 ??F) Max: 36.7 ??C (98.1 ??F) Pulse Min: 86 Max: 94 BP Min: 89/62 Max: 144/81 Resp Min: 18 Max: 20 SpO2 Min: 97 % Max: 99 % Intake/Output Intake/Output Summary (Last 24 hours) at 12/06/2023 0715 Last data filed at 12/05/2023 1658 Gross per 24 hour Intake 515.5 ml Output -- Net 515.5 ml Current Medications Scheduled Meds: Scheduled Medications Medication Dose Route Frequency ??? [Held by Provider] ciprofloxacin (CIPRO) tablet 500 mg 500 mg oral BID - special ??? enoxaparin (LOVENOX) syringe 40 mg 40 mg subcutaneous Daily-2099 ??? folic acid (FOLVITE) tablet 1 mg 1 mg oral Daily ??? insulin lispro (HumaLOG, ADMELOG) 100 unit/mL injection 0-10 Units 0-10 Units subcutaneous TID with meals ??? insulin lispro (HumaLOG, ADMELOG) 100 unit/mL injection 0-5 Units 0-5 Units subcutaneous Nightly ??? [Held by Provider] losartan (COZAAR) tablet 25 mg 25 mg oral Daily ??? [Held by Provider] metroNIDAZOLE (FLAGYL) tablet 500 mg 500 mg oral BID ??? multivitamin with folic acid 400 mcg tablet 1 tablet 1 tablet oral Daily ??? pantoprazole DR (PROTONIX) extended release tablet 40 mg 40 mg oral Daily ??? piperacillin-tazobactam (ZOSYN) 4.5 gram/120 mL in sodium chloride 0.9% (premix) 4.5 g 4.5 g intravenous Q6H DARIN ??? potassium chloride ER (KLOR-CON) extended release tablet 10 mEq 10 mEq oral Once ??? pyridoxine (VITAMIN B6) tablet 100 mg 100 mg oral Daily ??? thiamine (VITAMIN B1) tablet 100 mg 100 mg oral Daily ??? vancomycin 750 mg/257.5 mL in sodium chloride 0.9% (premix) 750 mg 15 mg/kg intravenous Q12H Continuous Meds: Current Facility-Administered Medications Medication Dose Route Frequency Last Admin PRN Meds: PRN Medications Medication Dose Route Frequency Last Admin ??? acetaminophen (TYLENOL) tablet 650 mg 650 mg oral Q4H PRN 650 mg at 12/05/232115 ??? benzonatate (TESSALON) capsule 100 mg 100 mg oral TID PRN 100 mg at 10/18/24 2116 ??? Carrier Fluids for Secondary Infusion - 0.9% Sodium Chloride 30 mL intravenous PRN ??? dextrose gel in packet 15 g 15 g oral Q15 Min PRN Or ??? dextrose (D10W) 10% bolus 250 mL 250 mL intravenous Q15 Min PRN ??? glucagon injection 1 mg 1 mg intramuscular Q30 Min PRN ??? guaiFENesin ER (MUCINEX) extended release tablet 1,200 mg 1,200 mg oral BID PRN ??? ondansetron (ZOFRAN) injection 4 mg 4 mg intravenous Q4H PRN ??? phenoL (CHLORASEPTIC) 1.4 % oral spray 1 spray 1 spray mouth/throat Q4H PRN 1 spray at ??? polyethylene glycol (MIRALAX) packet 17 g 17 g oral Daily PRN ??? ramelteon (ROZEREM) tablet 8 mg 8 mg oral Nightly PRN ??? sodium chloride 0.9% flush 0.5-20 mL 0.5-20 mL intra-catheter PRN 10 mL at 12/04/231856 Physical Exam Physical Exam Constitutional: General: She is not in acute distress. HENT: Head: Normocephalic. Right Ear: External ear normal. Left Ear: External ear normal. Nose: Nose normal. Mouth/Throat: Mouth: Mucous membranes are moist. Pharynx: Oropharynx is clear. No oropharyngeal exudate. Eyes: Pupils: Pupils are equal, round, and reactive to light. Cardiovascular: Rate and Rhythm: Normal rate and regular rhythm. Pulses: Normal pulses. Heart sounds: Normal heart sounds. Pulmonary: Effort: Pulmonary effort is normal. Abdominal: General: Bowel sounds are normal. There is distension. Tenderness: There is no abdominal tenderness. Musculoskeletal: General: Normal range of motion. Cervical back: Normal range of motion. Skin: General: Skin is warm. Capillary Refill: Capillary refill takes less than 2 seconds. Neurological: General: No focal deficit present. Mental Status: She is alert and oriented to person, place, and time. Laboratory Results Recent Results (from the past 24 hour(s)) POCT glucose Collection Time: 12/05/23 8:02 AM Result Value Ref Range Glucose, POC 148 70 - 199 mg/dL Troponin I high-sensitivity series (baseline, 2hr, 4hr, 6hr) Collection Time: 12/05/23 8:56 AM Result Value Ref Range Trop I hs 509 (Critical) <=17 ng/L Troponin I high-sensitivity 2-hour Collection Time: 12/05/23 11:09 AM Result Value Ref Range Trop I hs 373 (Critical) <=17 ng/L Trop I hs pct delta -27 (Critical) % Trop I hs interp Significant (Critical) CBC with auto differential Collection Time: 12/05/23 11:09 AM Result Value Ref Range WBC 12.3 (H) 3.8 - 9.9 K/cumm Hgb 7.6 (L) 11.9 - 15.5 g/dL Hct 25.5 (L) 35.6 - 45.5 % Plt 463 (H) 150 - 400 K/cumm MPV 8.9 (L) 9.1 - 12.3 fL RBC 2.99 (L) 3.90 - 5.20 M/cumm MCV 85.3 81.3 - 96.4 fL MCH 25.4 (L) 27.1 - 33.3 pg MCHC 29.8 (L) 32.3 - 35.7 g/dL RDW CV 18.6 (H) 11.1 - 14.9 % RDW SD 57.7 (H) 35.7 - 48.1 fL NRBC abs 0.00 0.00 - 0.01 K/cumm Differential, auto Collection Time: 12/05/23 11:09 AM Result Value Ref Range Neutrophil abs 9.3 (H) 1.5 - 6.5 K/cumm Imm gran abs 0.1 0.0 - 0.1 K/cumm Lymphocyte abs 1.7 0.8 - 3.3 K/cumm Monocyte abs 1.0 (H) 0.2 - 0.8 K/cumm Eosinophil abs 0.2 0.0 - 0.5 K/cumm Basophil abs 0.1 0.0 - 0.1 K/cumm Neutrophil pct 75.4 % Imm gran pct 0.5 % Lymphocyte pct 14.1 % Monocyte pct 7.8 % Eosinophil pct 1.4 % Basophil pct 0.8 % POCT glucose Collection Time: 12/05/23 11:44 AM Result Value Ref Range Glucose, POC 205 (H) 70 - 199 mg/dL POCT glucose Collection Time: 12/05/23 4:45 PM Result Value Ref Range Glucose, POC 104 70 - 199 mg/dL POCT glucose Collection Time: 12/05/23 8:16 PM Result Value Ref Range Glucose, POC 151 70 - 199 mg/dL CBC with auto differential Collection Time: 12/05/23 9:24 PM Result Value Ref Range WBC 12.0 (H) 3.8 - 9.9 K/cumm Hgb 7.8 (L) 11.9 - 15.5 g/dL Hct 26.0 (L) 35.6 - 45.5 % Plt 446 (H) 150 - 400 K/cumm MPV 8.9 (L) 9.1 - 12.3 fL RBC 3.09 (L) 3.90 - 5.20 M/cumm MCV 84.1 81.3 - 96.4 fL MCH 25.2 (L) 27.1 - 33.3 pg MCHC 30.0 (L) 32.3 - 35.7 g/dL RDW CV 18.7 (H) 11.1 - 14.9 % RDW SD 57.4 (H) 35.7 - 48.1 fL NRBC abs 0.00 0.00 - 0.01 K/cumm Renal function panel Collection Time: 12/05/23 9:24 PM Result Value Ref Range Sodium 137 135 - 145 mmol/L Potassium, pl 3.8 3.3 - 4.9 mmol/L Chloride 105 97 - 110 mmol/L CO2 26 22 - 32 mmol/L Anion gap 6 2 - 15 mmol/L BUN 17 6 - 25 mg/dL Creatinine 0.79 0.60 - 1.10 mg/dL Glucose 121 70 - 199 mg/dL Calcium 8.0 (L) 8.5 - 10.3 mg/dL Phosphorus, pl 3.5 2.3 - 4.5 mg/dL Albumin 2.4 (L) 3.5 - 5.0 g/dL Differential, auto Collection Time: 12/05/23 9:24 PM Result Value Ref Range Neutrophil abs 8.5 (H) 1.5 - 6.5 K/cumm Imm gran abs 0.1 0.0 - 0.1 K/cumm Lymphocyte abs 2.1 0.8 - 3.3 K/cumm Monocyte abs 1.0 (H) 0.2 - 0.8 K/cumm Eosinophil abs 0.3 0.0 - 0.5 K/cumm Basophil abs 0.1 0.0 - 0.1 K/cumm Neutrophil pct 70.4 % Imm gran pct 0.5 % Lymphocyte pct 17.6 % Monocyte pct 8.2 % Eosinophil pct 2.5 % Basophil pct 0.8 % eGFR Collection Time: 12/05/23 9:24 PM Result Value Ref Range eGFR 83 >=60 mL/min/1.73 m2 Magnesium Collection Time: 12/05/23 9:24 PM Result Value Ref Range Magnesium 2.0 1.4 - 2.5 mg/dL Vancomycin level trough Draw trough 30 minutes prior to 4th dose. Collection Time: 12/06/23 4:31 AM Result Value Ref Range Vancomycin trough 14.3 10.0 - 20.0 mcg/mL Imaging Results XR Abdomen Ap 1 Vw Narrative: EXAMINATION: Abdomen, one view. HISTORY: Concern for bowel perforation, recently diagnosed with inflammatory bowel disease and colitis for sigmoid colon with microperforation. COMPARISON: CT 11/04/2023 Impression: A single view of the abdomen is [...] Electronically signed by: Juan Carlos Buchanan M.D. XR Chest 1 View Narrative: EXAMINATION: 1 view chest radiograph Impression: Comparison is made to chest radiograph dated [...] pneumothorax. Stable cardiomediastinal silhouette. Electronically signed by: Bobby Linda M.D. Path Results: Sections show alveolated lung parenchyma with widen septae, increased interstitial inflammatory infiltration, type II pneumonocyte hyperplasia, increased alveolar foamy macrophages and rare microthrombi. Bronchiolitis with predominant chronic inflammation is also noted. We do not see definitive evid ence of vasculitis/endotheliolitis, viral cytopathic changes, granulomatous inflammation, necrosis or malignancy. Special stains for GMS, AFB, and trichrome were performed with proper controls. GMS and AFB stains show no fungal organisms or acid-fast bacteria. The trichrome stain shows no significant increase of interstitial fibrosis. Overall the findings are those of organizing lung injury, with the differential diagnosis includinginfectious etiology, autoimmune, or drug-induced. Correlation with imaging findings and microbiology study is strongly recommended. ASSESSMENT & PLAN Darius Russo is a 63 y.o. woman with relevant PMH of IBD (2022 UC, now c/f Crohn's), adnexal mass, HTN, T2DM directly admitted for expedited therapy for IBD iso progressive weight loss, found to have pulmonary lesions concerning for infectious vs malignancy. #SVT episode #Concern for transient bacteremia vs sepsis iso worsening perforation Patient developed SVT with acute abdominal pain, and subsequently fever and hypotension with MAPs in the 50s, sustained, 12/03 after BM. Suspect possible transient bacteremia (?gut source). Given tenuous clinical status, treating as sepsis. Discussed pt with GI, given recent normal imaging, reassuring exam during presentation yesterday and today, improving/stable lab findings, dx is mainly concerning for worsening microperforation vs transient bacteremia. In setting of hx of sepsis with microperforation, continue on broad spectrum pending clinical improvement/blood culture findings. Consider CT AP to assess for colonic changes. For episode of leukocytosis, pt started on vanc zosyn without bacterial culture growth x24h, pt clinically stable. Abx deescalated to original cipro flagyl. - vancomycin 15mg/kg q12h, piperacillin-tazobactam 4.5g q6h (12/03-) - ciprofloxacin 500mg BID, metronidazole 500mg BID (11/05-12/03, 12/05-) - pt currently tolerating PO. #Throat/referred ear pain - No exudates, CENTOR of 1, present since bronchoscopy, improving with PRN APAP - order magic mouthwash q8h PRN #Type 2 NC: 12/03 Trops 5>770>1061>1176 after acute SVT 12/03. Suspect related to demand ischemia. Repeat trops in AM down to 500, EKG ordered. #IBD c/b recurrent diverticulitis, contained colonic perforation #splenic/liver abscesses, ?seeding from microperforation Patient was diagnosed with ulcerative colitis in 2022, since which time she has been prescribed rectal mesalamine. She has had recurrent admissions for sigmoid diverticulitis which have been managed medically; most recently, patient was started on a 4wk course of ciprofloxacin/metronidazole (11/05). 11/12 colonoscopy with cryptitis and inflammation now c/f colonic Crohn's, MRI dated same with sigmoid diverticulitis, contained perforation, rectal/sigmoid inflammation. Patient's symptoms include daily diarrhea (now improving) and profound weight loss as detailed elsewhere. She was admitted for remicade vs operative management, course c/b likely infectious process (lungs, liver, spleen) preventi ng remicade initiation. GI recs to consult CRS and secondary school registrar for operative intervention in setting of pending infectious workup. Per CRS, plan for TAC+cyst resection on 12/16, can be discharged in meantime. ISO recent SVT/septic picture, will continue to monitor in hospital. - GI c/s - ID c/s, recs appreciated: abx, work-up as below - CRS c/s, rec TAC + cyst resection 12/16 - Business Office Representative c/s #Cavitary lung lesions s/p bronch with BAL/biopsy Patient with symptoms including cough [place]; admission CT CAP11/26/23 with cavitary lung lesions and associated lymphadenopathy, not seen on CT ~1 month ago; patient also with liver/spleen and adnexal masses as below. No clear risk factors for immunosuppresionsave acute severe malnutrition. Differential is broad and includes infectious, autoimmune, and malignant processes. Diagnostic work-up in addition to imaging includes: BAL 11/27 with biopsy (negative). Blood cx (mold, fungal, bacteria) NGTD; CrAg, Blasto EIA, DFA, BAL AFB, galactomannan negative. Bronch path results suggest organizing lung injury, no evidence of infection, cytology is negative for infection/malignancy. Will need recommendations from ID/pulm re follow-up management/observation of lung lesions. - ID c/s, rec sending ANCA/vasculitis workup - Pulm c/s, recs/intervention (BAL 11/27) appreciated: disfavor malignancy - Abx as above #FTT/severe malnutrition #Acute weight loss 65lb weight loss over 4mo; suspect related to multifocal process affecting lung/liver/spleen or mass effect from her adnexal mass. Patient endorses poor appetite, early satiety. Repeat folate/b12 labs after replenishment wnl - Nutrition c/s, recs appreciated - s/p HD thiamine, thiamine 100mg PO daily - folic acid 1mg daily, MVI daily - pyridoxine B6 100mg PO daily #Liver/spleen abscesses: Reproduced on 11/12 MRI, too small to drain and stable from prior imaging.Improved on subsequent CT CAP. Liver also with diffuse iron deposition. Abx as above. #Adnexal mass: 11/12 MRI, 16.4 x 11.6 x 14.2cm multiseptate cystic R ovary mass. Business Office Representative onc c/s, suspect benign, per pulm, concern for possible malignancy in lungs, plan to reach out to secondary school registrar re issues. #Hypocalcemia: Intermittent throughout admission. Possibly related to poor dietary intake. 11/29 25OH-VitD 39 from 10/26. #HTN: Hold home losartan 25mg daily while c/f shock #T2DM: A1c 5.7%. HDSSI. Code Status: Full Code Disposition: pending clinical course Best contact: Primary Emergency Contact: JEAN CLAUDE RUSSO Diet: Adult Diet Regular VTE Prophylaxis: enoxaparin 40mg SQ qhs PT: PT Recommendation/Plan: Home with family, Home with intermittent assist, No further PT indicated OT:OT Recommendation: Home with family, Home with intermittent assist, No further OT indicated Michael Huizar MD Resident Physician Cosigned by Álvaro Radford MD at 12/06/2023 1:23 PM CDT Associated attestation - Álvaro Radford MD - 12/06/2023 1:23 PM CDT Attending Documentation I have seen and examined the patient on 12/06/23. I agree with the findings and plan of care as documented in the resident's/fellow's note. and as discussed with the resident/fellow. No further events, tele stable, VSS, WBC back to recent baseline. Cultures NGTD, will deescalate tocipro/flagyl, do not suspect that spectrum of coverage or absorption were contributors to episode. Encourage nutrition and ambulation. Supplementary Attestation Today, I am treating the patient for lung infection, likely penetrating Crohns, SVT which is in severe exacerbation, progression, or experiencing treatment side effects as evidenced by need for antimicrobials and surgery, rapid response, HR 170s as described in the note. Reviewed records from the following unique sources (external institutions or providers from different services): GI notes, Pulm notes, CRS Notes, Independently interpreted PET which shows mod avid pulm consolidation, avid colonic findings, no uptake in ovarian mass Discussed management of lung infection with ID, Pulm, IBD with GI The patient is being intensively monitored for drug toxicity from abx by checking CBC, CMP, QTc. Álvaro Radford MD * Michael Huizar MD - 12/05/2023 7:19 AM CDT Medicine Daily Progress Note Patient: Darius Russo : 1960 (63 y.o.) Date of Admission: 11/25/2023 Date of Service: 12/05/23 SUBJECTIVE Interval Events: - SVT yesterday concerning for poor perfusion in RLE, hypertensive, tachy to 150s s/p vagal maneuvers, adenosine, metop, 1L NS. Transitioned to sinus tach, pt became febrile to 101.9F, hypotension (MAPS 50s). lactate 1.7>1.9, leukocytosis to 25, anemic to 7.3, trops uptrending (5->1176), no sx of angina/EKG findings, CXR/AXR wnl, no pneumoperitoneum, bcx drawn before abx broadening, suspectsepsis/bacterial translocation - Since afternoon, NAEON, pt with multiple BM without repeat sx - In AM, pt feeling at baseline, denies abd pain, tolerating PO well, has increased diarrhea after starting on mIVF, denies fever, nausea, chills, since yesterday. OBJECTIVE Vitals Most Recent: Vitals: 12/05/23 0318 BP: 127/72 Pulse: 95 Resp: 18 Temp: 36.7 ??C (98.1 ??F) SpO2: 98% 24 Hour Min/Max: Temp Min: 36.6 ??C (97.9 ??F) Max: 37.5 ??C (99.5 ??F) Pulse Min: 95 Max: 152 BP Min: 95/51 Max: 160/101 Resp Min: 18 Max: 18 SpO2 Min: 95 % Max: 100 % Intake/Output Intake/Output Summary (Last 24 hours) at 12/05/2023 07 Last data filed at 12/05/2023 0512 Gross per 24 hour Intake 1377.5 ml Output 225 ml Net 1152.5 ml Current Medications Scheduled Meds: Scheduled Medications Medication Dose Route Frequency [Held by Provider] ciprofloxacin (CIPRO) tablet 500 mg 500 mg oral BID - special enoxaparin (LOVENOX) syringe 40 mg 40 mg subcutaneous Daily-2100 folic acid (FOLVITE) tablet 1 mg 1 mg oral Daily insulin lispro (HumaLOG, ADMELOG) 100 unit/mL injection 0-10 Units 0-10 Units subcutaneous TID withmeals insulin lispro (HumaLOG, ADMELOG) 100 unit/mL injection 0-5 Units 0-5 Units subcutaneous Nightly [Held by Provider] losartan (COZAAR) tablet 25 mg 25 mg oral Daily [Held by Provider] metroNIDAZOLE (FLAGYL) tablet 500 mg 500 mg oral BID multivitamin with folic acid 400 mcg tablet 1 tablet 1 tablet oral Daily pantoprazole DR (PROTONIX) extended release tablet 40 mg 40 mg oral Daily piperacillin-tazobactam (ZOSYN) 4.5 gram/120 mL in sodium chloride 0.9% (premix) 4.5 g 4.5 g intravenous Q6H DARIN pyridoxine (VITAMIN B6) tablet 100 mg 100 mg oral Daily sodium chloride 0.9% bolus 1,000 mL 1,000 mL intravenous Once thiamine (VITAMIN B1) tablet 100 mg 100 mg oral Daily vancomycin 750 mg/257.5 mL in sodium chloride 0.9% (premix) 750 mg 15 mg/kg intravenous Q12H Continuous Meds: Current Facility-Administered Medications Medication Dose Route Frequency Last Admin Lactated Ringer's 50 mL/hr intravenous Continuous 50 mL/hr at 12/04/232005 PRN Meds: PRN Medications Medication Dose Route Frequency Last Admin acetaminophen (TYLENOL) tablet 650 mg 650 mg oral Q4H PRN 650 mg at 12/01/23 1751 benzonatate (TESSALON) capsule 100 mg 100 mg oral TID PRN 100 mg at 12/05/23 0107 Carrier Fluids for Secondary Infusion - 0.9% Sodium Chloride 30 mL intravenous PRN dextrose gel in packet 15 g 15 g oral Q15 Min PRN Or dextrose (D10W) 10% bolus 250 mL 250 mL intravenous Q15 Min PRN glucagon injection 1 mg 1 mg intramuscular Q30 Min PRN guaiFENesin ER (MUCINEX) extended release tablet 1,200 mg 1,200 mg oral BID PRN ondansetron (ZOFRAN) injection 4 mg 4 mg intravenous Q4H PRN phenoL (CHLORASEPTIC) 1.4 % oral spray 1 spray 1 spray mouth/throat Q4H PRN 1 spray at 11/29/232057 polyethylene glycol (MIRALAX) packet 17 g 17 g oral Daily PRN ramelteon (ROZEREM) tablet 8 mg 8 mg oral Nightly PRN sodium chloride 0.9% flush 0.5-20 mL 0.5-20 mL intra-catheter PRN 10 mL at 12/04/23 1857 Physical Exam Examine below after resolution of acute event above. General: NAD, ill-appearing but clinically stable HEENT: NCAT. PERRL, EOMI, anicteric. MMM. Hearing intact to interview. Neck ROM intact to interview. Supple. Lungs: Unlabored on RA. No dyspnea with conversation. Clear breath sounds throughout bilateral anterior and posterior lung randall, though without wheezes. Cardiovascular: Rapid but RRR, normal S1 and S2, no murmurs/rubs/gallops. 2+ radial pulses. GI: Soft, mildly distended. No tenderness in LLQ, rebound or guarding. Palpable mass more present in LLQ, no TTP. Skin: No concerning rashes, lesions, or bruises on exposed skin. Extremities: No edema or cyanosis in BLE. WWP. Neurologic: Alert and oriented to interview, person, place, time, setting, and recent and remote personal history. Spontaneously moves all extremities, face symmetric to activation. No reported or observed focal motor or sensory neurologic deficits to gross exam. Psychiatric: Neutral to good mood with mood-syntonic affect. Does not appear to be responding to internal stimuli. Laboratory Results Recent Results (from the past 24 hour(s)) POCT glucose Collection Time: 12/04/23 11:36 AM Result Value Ref Range Glucose, POC 146 70 - 199 mg/dL POCT glucose Collection Time: 12/04/23 3:30 PM Result Value Ref Range Glucose, POC 192 70 - 199 mg/dL Blood culture Blood Collection Time: 12/04/23 4:01 PM Specimen: Blood Result Value Ref Range Report Preliminary Report: No growth to date. Comprehensive metabolic panel Collection Time: 12/04/23 4:01 PM Result Value Ref Range Sodium 136 135 - 145 mmol/L Potassium, pl 4.9 3.3 - 4.9 mmol/L Chloride 100 97 - 110 mmol/L CO2 22 22 - 32 mmol/L Anion gap 14 2 - 15 mmol/L BUN 19 6 - 25 mg/dL Creatinine 0.86 0.60 - 1.10 mg/dL Glucose 188 70 - 199 mg/dL Calcium 9.1 8.5 - 10.3 mg/dL Bilirubin, total 0.3 0.1 - 1.2 mg/dL Protein, pl 8.4 6.5 - 8.5 g/dL Albumin 3.0 (L) 3.5 - 5.0 g/dL Alk phos 102 40 - 130 Units/L ALT 11 7 - 45 Units/L AST 35 10 - 45 Units/L Blood gas, venous Collection Time: 12/04/23 4:01 PM Result Value Ref Range pH, Venous 7.30 (L) 7.32 - 7.43 PCO2, Venous 48 40 - 50 mmHg PO2, Venous 35 mmHg HCO3 Venous, Calculated 25 20 - 30 mmol/L BE, venous -3 mmol/L eGFR Collection Time: 12/04/23 4:01 PM Result Value Ref Range eGFR 75 >=60 mL/min/1.73 m2 Lipase Collection Time: 12/04/23 4:01 PM Result Value Ref Range Lipase 87 10 - 99 Units/L Troponin I high-sensitivity series (baseline, 2hr, 4hr, 6hr) Collection Time: 12/04/23 4:02 PM Result Value Ref Range Trop I hs 5 <=17 ng/L CBC with auto differential Collection Time: 12/04/23 4:02 PM Result Value Ref Range WBC 24.1 (H) 3.8 - 9.9 K/cumm Hgb 9.8 (L) 11.9 - 15.5 g/dL Hct 33.2 (L) 35.6 - 45.5 % Plt 760 (H) 150 - 400 K/cumm MPV 9.3 9.1 - 12.3 fL RBC 3.87 (L) 3.90 - 5.20 M/cumm MCV 85.8 81.3 - 96.4 fL MCH 25.3 (L) 27.1 - 33.3 pg MCHC 29.5 (L) 32.3 - 35.7 g/dL RDW CV 18.6 (H) 11.1 - 14.9 % RDW SD 58.0 (H) 35.7 - 48.1 fL NRBC abs 0.00 0.00 - 0.01 K/cumm Differential, auto Collection Time: 12/04/23 4:02 PM Result Value Ref Range Neutrophil abs 19.2 (H) 1.5 - 6.5 K/cumm Imm gran abs 0.2 (H) 0.0 - 0.1 K/cumm Lymphocyte abs 4.0 (H) 0.8 - 3.3 K/cumm Monocyte abs 0.6 0.2 - 0.8 K/cumm Eosinophil abs 0.1 0.0 - 0.5 K/cumm Basophil abs 0.1 0.0 - 0.1 K/cumm Neutrophil pct 79.6 % Imm gran pct 0.6 % Lymphocyte pct 16.6 % Monocyte pct 2.5 % Eosinophil pct 0.3 % Basophil pct 0.4 % POCT lactate Collection Time: 12/04/23 5:19 PM Result Value Ref Range Lactate POC i-STAT 1.7 0.7 - 2.2 mmol/L Comprehensive metabolic panel Collection Time: 12/04/23 5:24 PM Result Value Ref Range Sodium 135 135 - 145 mmol/L Potassium, pl 4.4 3.3 - 4.9 mmol/L Chloride 102 97 - 110 mmol/L CO2 23 22 - 32 mmol/L Anion gap 10 2 - 15 mmol/L BUN 18 6 - 25 mg/dL Creatinine 0.83 0.60 - 1.10 mg/dL Glucose 186 70 - 199 mg/dL Calcium 8.1 (L) 8.5 - 10.3 mg/dL Bilirubin, total 0.3 0.1 - 1.2 mg/dL Protein, pl 6.8 6.5 - 8.5 g/dL Albumin 2.5 (L) 3.5 - 5.0 g/dL Alk phos 82 40 - 130 Units/L ALT 8 7 - 45 Units/L AST 22 10 - 45 Units/L Magnesium Collection Time: 12/04/23 5:24 PM Result Value Ref Range Magnesium 2.5 1.4 - 2.5 mg/dL eGFR Collection Time: 12/04/23 5:24 PM Result Value Ref Range eGFR 78 >=60 mL/min/1.73 m2 Lipid panel Collection Time: 12/04/23 5:24 PM Result Value Ref Range Cholesterol 71 30 - 199 mg/dL Triglycerides 75 <=149 mg/dL HDL 27 (L) >=40 mg/dL LDL, calculated 28 <=129 mg/dL Non-HDL Cholesterol 44 mg/dL Chol/HDL ratio 3 Blood culture Blood Collection Time: 12/04/23 5:25 PM Specimen: Blood Result Value Ref Range Report Preliminary Report: No growth to date. Renal function panel Collection Time: 12/04/23 5:58 PM Result Value Ref Range Sodium 136 135 - 145 mmol/L Potassium, pl 4.3 3.3 - 4.9 mmol/L Chloride 105 97 - 110 mmol/L CO2 24 22 - 32 mmol/L Anion gap 7 2 - 15 mmol/L BUN 19 6 - 25 mg/dL Creatinine 0.82 0.60 - 1.10 mg/dL Glucose 197 70 - 199 mg/dL Calcium 8.0 (L) 8.5 - 10.3 mg/dL Phosphorus, pl 2.9 2.3 - 4.5 mg/dL Albumin 2.4 (L) 3.5 - 5.0 g/dL Troponin I high-sensitivity 2-hour Collection Time: 12/04/23 5:58 PM Result Value Ref Range Trop I hs 770 (Critical) <=17 ng/L Trop I hs delta 765 (Critical) ng/L Trop I hs interp Significant (Critical) CBC with auto differential Collection Time: 12/04/23 5:58 PM Result Value Ref Range WBC 23.9 (H) 3.8 - 9.9 K/cumm Hgb 7.3 (L) 11.9 - 15.5 g/dL Hct 24.4 (L) 35.6 - 45.5 % Plt 477 (H) 150 - 400 K/cumm MPV 8.5 (L) 9.1 - 12.3 fL RBC 2.89 (L) 3.90 - 5.20 M/cumm MCV 84.4 81.3 - 96.4 fL MCH 25.3 (L) 27.1 - 33.3 pg MCHC 29.9 (L) 32.3 - 35.7 g/dL RDW CV 18.4 (H) 11.1 - 14.9 % RDW SD 55.9 (H) 35.7 - 48.1 fL NRBC abs 0.00 0.00 - 0.01 K/cumm Lactate Collection Time: 12/04/23 5:58 PM Result Value Ref Range Lactate 1.9 0.7 - 2.0 mmol/L Differential, auto Collection Time: 12/04/23 5:58 PM Result Value Ref Range Neutrophil abs 21.7 (H) 1.5 - 6.5 K/cumm Imm gran abs 0.2 (H) 0.0 - 0.1 K/cumm Lymphocyte abs 0.7 (L) 0.8 - 3.3 K/cumm Monocyte abs 1.2 (H) 0.2 - 0.8 K/cumm Eosinophil abs 0.0 0.0 - 0.5 K/cumm Basophil abs 0.1 0.0 - 0.1 K/cumm Neutrophil pct 90.7 % Imm gran pct 1.0 % Lymphocyte pct 2.9 % Monocyte pct 5.0 % Eosinophil pct 0.1 % Basophil pct 0.3 % eGFR Collection Time: 12/04/23 5:58 PM Result Value Ref Range eGFR 79 >=60 mL/min/1.73 m2 Critical result callback Cardio chemistry Collection Time: 12/04/23 5:58 PM Result Value Ref Range Date Notified 20231204 Time Notified 1848 Test name Trop I hs 2hr Called/Read Back Isabell Mackay Credentials RN Called By DVB POCT glucose Collection Time: 12/04/23 7:55 PM Result Value Ref Range Glucose, POC 226 (H) 70 - 199 mg/dL Troponin I high-sensitivity 4-hour Collection Time: 12/04/23 8:14 PM Result Value Ref Range Trop I hs 1,061 (Critical) <=17 ng/L Trop I hs delta 1,056 (Critical) ng/L Trop I hs interp Significant (Critical) CBC with auto differential Collection Time: 12/04/23 8:30 PM Result Value Ref Range WBC 24.2 (H) 3.8 - 9.9 K/cumm Hgb 7.6 (L) 11.9 - 15.5 g/dL Hct 25.3 (L) 35.6 - 45.5 % Plt 483 (H) 150 - 400 K/cumm MPV 8.6 (L) 9.1 - 12.3 fL RBC 2.94 (L) 3.90 - 5.20 M/cumm MCV 86.1 81.3 - 96.4 fL MCH 25.9 (L) 27.1 - 33.3 pg MCHC 30.0 (L) 32.3 - 35.7 g/dL RDW CV 18.4 (H) 11.1 - 14.9 % RDW SD 58.1 (H) 35.7 - 48.1 fL NRBC abs 0.00 0.00 - 0.01 K/cumm Differential, auto Collection Time: 12/04/23 8:30 PM Result Value Ref Range Neutrophil abs 22.2 (H) 1.5 - 6.5 K/cumm Imm gran abs 0.2 (H) 0.0 - 0.1 K/cumm Lymphocyte abs 0.7 (L) 0.8 - 3.3 K/cumm Monocyte abs 1.1 (H) 0.2 - 0.8 K/cumm Eosinophil abs 0.0 0.0 - 0.5 K/cumm Basophil abs 0.1 0.0 - 0.1 K/cumm Neutrophil pct 91.8 % Imm gran pct 0.7 % Lymphocyte pct 2.8 % Monocyte pct 4.4 % Eosinophil pct 0.1 % Basophil pct 0.2 % Troponin I high-sensitivity 6-hour Collection Time: 12/04/23 10:19 PM Result Value Ref Range Trop I hs 1,176 (Critical) <=17 ng/L Trop I hs delta 1,171 (Critical) ng/L Trop I hs interp Significant (Critical) Type and screen Collection Time: 12/04/23 10:19 PM Result Value Ref Range ABO Rh O Positive Maira, indirect Negative Basic metabolic panel Collection Time: 12/04/23 10:19 PM Result Value Ref Range Sodium 137 135 - 145 mmol/L Potassium, pl 4.2 3.3 - 4.9 mmol/L Chloride 105 97 - 110 mmol/L CO2 22 22 - 32 mmol/L Anion gap 10 2 - 15 mmol/L BUN 18 6 - 25 mg/dL Creatinine 0.81 0.60 - 1.10 mg/dL Glucose 197 70 - 199 mg/dL Calcium 8.1 (L) 8.5 - 10.3 mg/dL Magnesium Collection Time: 12/04/23 10:19 PM Result Value Ref Range Magnesium 2.0 1.4 - 2.5 mg/dL eGFR Collection Time: 12/04/23 10:19 PM Result Value Ref Range eGFR 81 >=60 mL/min/1.73 m2 Imaging Results XR Chest 1 View Narrative: EXAMINATION: 1 view chest radiograph Impression: Comparison is made to chest radiograph dated [...] pneumothorax. Stable cardiomediastinal silhouette. Electronically signed by: Bobby Linda M.D. Path Results: Sections show alveolated lung parenchyma with widen septae, increased interstitial inflammatory infiltration, type II pneumonocyte hyperplasia, increased alveolar foamy macrophages and rare microthrombi. Bronchiolitis with predominant chronic inflammation is also noted. We do not see definitive evid ence of vasculitis/endotheliolitis, viral cytopathic changes, granulomatous inflammation, necrosis or malignancy. Special stains for GMS, AFB, and trichrome were performed with proper controls. GMS and AFB stains show no fungal organisms or acid-fast bacteria. The trichrome stain shows no significant increase of interstitial fibrosis. Overall the findings are those of organizing lung injury, with the differential diagnosis includinginfectious etiology, autoimmune, or drug-induced. Correlation with imaging findings and microbiology study is strongly recommended. ASSESSMENT & PLAN Darius Russo is a 63 y.o. woman with relevant PMH of IBD (2022 UC, now c/f Crohn's), adnexal mass, HTN, T2DM directly admitted for expedited therapy for IBD iso progressive weight loss, found to have pulmonary lesions concerning for infectious vs malignancy. #SVT episode #Concern for transient bacteremia vs sepsis iso worsening perforation Patient developed SVT with acute abdominal pain, and subsequently fever and hypotension with MAPs in the 50s, sustained, 12/03 after BM. Suspect possible transient bacteremia (?gut source). Given tenuous clinical status, treating as sepsis. Discussed pt with GI, given recent normal imaging, reassuring exam during presentation yesterday and today, improving/stable lab findings, dx is mainly concerning for worsening microperforation vs transient bacteremia. In setting of hx of sepsis with microperforation, continue on broad spectrum pending clinical improvement/blood culture findings. Consider CT AP to assess for colonic changes - vancomycin 15mg/kg q12h, piperacillin-tazobactam 4.5g q6h (12/03-) - pt currently tolerating PO, hold mIVF after cessation. #Type 2 NC: 12/03 Trops 5>770>1061>1176 after acute SVT 12/03. Suspect related to demand ischemia. Repeat trops in AM down to 500, EKG ordered. #IBD c/b recurrent diverticulitis, contained colonic perforation #splenic/liver abscesses, ?seeding from microperforation Patient was diagnosed with ulcerative colitis in 2022, since which time she has been prescribed rectal mesalamine. She has had recurrent admissions for sigmoid diverticulitis which have been managed medically; most recently, patient was started on a 4wk course of ciprofloxacin/metronidazole (11/05). 11/12 colonoscopy with cryptitis and inflammation now c/f colonic Crohn's, MRI dated same with sigmoid diverticulitis, contained perforation, rectal/sigmoid inflammation. Patient's symptoms include daily diarrhea (now improving) and profound weight loss as detailed elsewhere. She was admitted for remicade vs operative management, course c/b likely infectious process (lungs, liver, spleen) preventi ng remicade initiation. GI recs to consult CRS and secondary school registrar for operative intervention in setting of pending infectious workup. Per CRS, plan for TAC+cyst resection on 12/16, can be discharged in meantime. ISO recent SVT/septic picture, will continue to monitor in hospital. - GI c/s - ID c/s, recs appreciated: abx, work-up as below - CRS c/s, rec TAC + cyst resection 12/16 - Business Office Representative c/s - ciprofloxacin 500mg BID, metronidazole 500mg BID (11/05-12/03); resume when de-escalating broad spectrum antibiotics above #Cavitary lung lesions s/p bronch with BAL/biopsy Patient with symptoms including cough [place] admission CT CAP11/26/23 with cavitary lung lesions and associated lymphadenopathy, not seen on CT ~1 month ago; patient also with liver/spleen and adnexal masses as below. No clear risk factors for immunosuppresionsave acute severe malnutrition. Differential is broad and includes infectious, autoimmune, and malignant processes. Diagnostic work-up in addition to imaging includes: BAL 11/27 with biopsy (negative). Blood cx (mold, fungal, bacteria) NGTD; CrAg, Blasto EIA, DFA, BAL AFB, galactomannan negative. Bronch path results suggest organizing lung injury, no evidence of infection, cytology is negative for infection/malignancy. Will need recommendations from ID/pulm re follow-up management/observation of lung lesions. - ID c/s, rec sending ANCA/vasculitis workup - Pulm c/s, recs/intervention (BAL 11/27) appreciated: disfavor malignancy - Abx as above #FTT/severe malnutrition #Acute weight loss 65lb weight loss over 4mo; suspect related to multifocal process affecting lung/liver/spleen or mass effect from her adnexal mass. Patient endorses poor appetite, early satiety. Repeat folate/b12 labs after replenishment wnl - Nutrition c/s, recs appreciated - s/p HD thiamine, thiamine 100mg PO daily - folic acid 1mg daily, MVI daily - pyridoxine B6 100mg PO daily #Liver/spleen abscesses: Reproduced on 11/12 MRI, too small to drain and stable from prior imaging.Improved on subsequent CT CAP. Liver also with diffuse iron deposition. Abx as above. #Adnexal mass: 11/12 MRI, 16.4 x 11.6 x 14.2cm multiseptate cystic R ovary mass. Business Office Representative onc c/s, suspect benign, per pulm, concern for possible malignancy in lungs, plan to reach out to secondary school registrar re issues. #Hypocalcemia: Intermittent throughout admission. Possibly related to poor dietary intake. 11/29 25OH-VitD 39 from 10/26. #HTN: Hold home losartan 25mg daily while c/f shock #T2DM: A1c 5.7%. HDSSI. Code Status: Full Code Disposition: pending clinical course Best contact: Primary Emergency Contact: JEAN CLAUDE RUSSO Diet: Adult Diet Regular VTE Prophylaxis: enoxaparin 40mg SQ qhs PT: PT Recommendation/Plan: Home with family, Home with intermittent assist, No further PT indicated OT:OT Recommendation: Home with family, Home with intermittent assist, No further OT indicated Michael Huizar MD Resident Physician Cosigned by Álvaro Radford MD at 12/05/2023 4:06 PM CDT Associated attestation - Álvaro Radford MD - 12/05/2023 4:06 PM CDT Attending Documentation I have seen and examined the patient on 12/05/23. I agree with the findings and plan of care as documented in the resident's/fellow's note. and as discussed with the resident/fellow. Feeling very well this AM. Trop peaked overnight with rapid downtrend and no ischemia on EKG. WBC doubled overnight and back to recent baseline this AM. Cultures NGTD. Cased discussed with CRS and GI. Will continue IV abx while awaiting cultures. Continue close monitoring. Supplementary Attestation Today, I am treating the patient for lung infection, likely penetrating Crohns, SVT which is in severe exacerbation, progression, or experiencing treatment side effects as evidenced by need for antimicrobials and surgery, rapid response, HR 170s as described in the note. Reviewed records from the following unique sources (external institutions or providers from different services): GI notes, Pulm notes, CRS Notes, Independently interpreted PET which shows mod avid pulm consolidation, avid colonic findings, no uptake in ovarian mass Discussed management of lung infection with ID, Pulm, IBD with GI The patient is being intensively monitored for drug toxicity from abx by checking CBC, CMP, QTc. Álvaro Radford MD * Vicki King MD - 12/05/2023 7:13 AM CDT Images from the original note were not included. [facility] Daily Progress Note Colorectal Surgery Surgery PATIENT NAME: Darius Russo : 1960 ADMIT DATE: 11/25/2023 6:29 PM LOS: 10 Subjective CHIEF COMPLAINT: Physical deconditioning INTERVAL HISTORY: -After a BM, pt developed pain, fever to 101.9, SVT, trop rise, and emesis. EKG only demonstrated SVT with no ischemic changes which resolved with adenosine and metop. Pt was given fluid bolus and broader antibiotics. Pt feeling better this morning, had several more BM with no issues and is in minimal pain. Objective MEDICATIONS: Scheduled: [Held by Provider] ciprofloxacin, 500 mg, oral, BID - special enoxaparin, 40 mg, subcutaneous, Daily-2100 folic acid, 1 mg, oral, Daily insulin lispro, 0-10 Units, subcutaneous, TID with meals insulin lispro, 0-5 Units, subcutaneous, Nightly [Held by Provider] losartan, 25 mg, oral, Daily [Held by Provider] metroNIDAZOLE, 500 mg, oral, BID multivitamin therapeutic, 1 tablet, oral, Daily pantoprazole DR, 40 mg, oral, Daily piperacillin-tazobactam, 4.5 g, intravenous, Q6H DARIN pyridoxine, 100 mg, oral, Daily sodium chloride 0.9%, 1,000 mL, intravenous, Once thiamine, 100 mg, oral, Daily vancomycin, 15 mg/kg, intravenous, Q12H Infusions: Lactated Ringer's, 50 mL/hr, Last Rate: 50 mL/hr (12/04/232005) PRN: acetaminophen benzonatate sodium chloride 0.9% dextrose OR dextrose glucagon guaiFENesin ER ondansetron phenoL polyethylene glycol ramelteon sodium chloride 0.9% VITALS: 24hr Min/Max: Temp Min: 36.6 ??C (97.9 ??F) Max: 37.5 ??C (99.5 ??F) Pulse Min: 95 Max: 152 BP Min: 95/51 Max: 160/101 Resp Min: 18 Max: 18 SpO2 Min: 95 % Max: 100 % Most Recent: Vitals: 12/04/23 19512/04/23200912/04/23 2220 12/05/23 0318 BP: 95/51 100/58 127/72 BP Location: Left arm Left arm Left arm Patient Position: HOB 30 degrees HOB 30 degrees Sitting Pulse: 110 110 95 95 Resp: 18 18 18 18 Temp: 36.9 ??C (98.4 ??F) 36.9 ??C (98.4 ??F) 36.7 ??C (98.1 ??F) TempSrc: Oral Oral Oral SpO2: 95% 95% 97% 98% Weight: Height: Intake/Output Summary (Last 24 hours) at 12/05/2023 0713 Last data filed at 12/05/2023 0512 Gross per 24 hour Intake 1377.5 ml Output 225 ml Net 1152.5 ml PHYSICAL EXAM: General: Lying in bed, conversation, well-developed Psych: alert and calm HEENT: normocephalic/atraumatic, anicteric Pulm: Normal work of breathing Cardiac: Regular rate and rhythm GI: abd soft, nondistended, mildly tender Neuro: ambulatory, non-focal Skin: warm and dry Musculoskeletal: no deformities LAB/ RADIOLOGY/ DIAGNOSTIC REVIEW: Chem/LFT Lab History Latest Ref Rng & Units 11/30/2023 22:55 12/01/2023 21:46 12/03/2023 00:09 12/04/2023 Labs-Chem/LFT Sodium 135 - 145 mmol/L 135 134 134 137 Creatinine 0.60 - 1.10 mg/dL 0.74 0.78 0.77 0.81 Bilirubin, total 0.1 - 1.2 mg/dL 0.3 0.3 AST 10 - 45 Units/L 16 22 ALT 7 - 45 Units/L 6 8 Alk phos 40 - 130 Units/L 78 82 CrCl- Actual Body Weight (Cockcroft-Gault) 70.3 66.7 66.4 63 Details More values are hidden. Newest values shown. Go to activity for more data. Hematology Lab History Latest Ref Rng & Units 11/30/2023 22:55 12/01/2023 21:46 12/03/2023 00:09 12/04/2023 Labs - Hematology WBC 3.8 - 9.9 K/cumm 17.2 13.4 12.5 24.2 Total Hb, POC 11.9 - 15.5 g/dL 8.3 8.4 8.3 7.6 Hct 35.6 - 45.5 % 27.5 27.3 28.2 25.3 Plt 150 - 400 K/cumm 382 519 481 483 Neutrophil abs 1.5 - 6.5 K/cumm 13.8 10.2 8.8 22.2 Lymphocytes, abs 0.8 - 3.3 K/cumm 2.0 1.9 2.5 0.7 Details More abnormal values are hidden. Newest values shown. Go to activity for more data. I have reviewed the laboratory results. ASSESSMENT/ PLAN: 63 y.o. female with hx of DM, HTN, and recently diagnosed IBD (originally thought to be UC but is now more likely to be Crohn's) who has persistent colitis of her sigmoid colon with microperforation,multiple abscesses of the liver and spleen, and now new left upper lobe lung lesions, some of whichare cavitary. She is not a candidate for anti-TNF treatment in the setting of her lung lesions until etiology is determined. Pt also has a new pelvic mass that requires resection. -Continue to optimize nutrition with adequate caloric and protein intake -Continue operative planning -Continue antibiotics -CTM WBC and BCx Vicki King MD 12/05/2023 Cosigned by Yo Perez MD at 12/05/2023 11:16 AM CDT * María Graham MD PhD - 12/04/2023 9:39 PM CDT Medicine Daily Progress Note Patient: Darius CHRISTENSEN: 1960 (63 y.o.) Date of Admission: 11/25/2023 Date of Service: 12/04/23 SUBJECTIVE Interval Events: - NAEO. Stable CBC. PET completed this morning demonstrating near resolution of liver/spleen disease, pulmonary opacities and interval increasing size of distal colonic phlegmons and pulmonary cavitary lesion. Ovarian lesion completely non- FDG avid. Per discussion with pulm, favor resolving infectious process. - Discussed clinical course to date and imaging findings in detail with patient. Discussed patient with CRS, unable to move up procedure earlier than 12/16. - This PM, patient had a BM and subsequently developed abdominal pain and shaking. I was called to bedside by RN. Bedside evaluation without evidence of rigid abdomen though with ?mottling of the skin in RLE, WWP. VS notable for hypertension (161/101) and fluctuating tachycardia, initially in 140s-150s, then low 100s, then back to 150s-170s. EKG demonstrated SVT. SVT ultimately transitioned to sinus tachycardia (HR 120s) after vagal maneuvers, adenosine 6mg x1 and metoprolol 5mg x1. We also gave patient 1L NS. After transitioning to sinus tachycardia, patient had NBNB emesis. Labs from ACT demonstrated new leukocytosis. CXR/AXR wtihout acute findings. Patient was subsequently febrile to 101.9F with persistent sinus tachycardia and hypotension (MAPs 50s), lactate 1.7>1.9. I gave omlufym4C LR, broadened antibiotics to vancomycin/zosyn, and started mIVF. Troponins uptrending since ACT (5>770>1061>1176) though reassuringly, patient remains without anginal symptoms or concerning EKG findings. ?Mottling of the skin now resolved. Suspect presentation 2/2 sepsis. New blood cx NGTD. OBJECTIVE Vitals Most Recent: Vitals: 12/04/232009 BP: 95/51 Pulse: 110 Resp: 18 Temp: SpO2: 95% 24 Hour Min/Max: Temp Min: 36.6 ??C (97.9 ??F) Max: 37.5 ??C (99.5 ??F) Pulse Min: 97 Max: 152 BP Min: 95/51 Max: 160/101 Resp Min: 18 Max: 18 SpO2 Min: 95 % Max: 100 % Intake/Output Intake/Output Summary (Last 24 hours) at 12/04/2023 2139 Last data filed at 12/04/20232005 Gross per 24 hour Intake 1000 ml Output 125 ml Net 875 ml Current Medications Scheduled Meds: Scheduled Medications Medication Dose Route Frequency [Held by Provider] ciprofloxacin (CIPRO) tablet 500 mg 500 mg oral BID - special enoxaparin (LOVENOX) syringe 40 mg 40 mg subcutaneous Daily-2100 folic acid (FOLVITE) tablet 1 mg 1 mg oral Daily insulin lispro (HumaLOG, ADMELOG) 100 unit/mL injection 0-5 Units 0-5 Units subcutaneous Nightly losartan (COZAAR) tablet 25 mg 25 mg oral Daily [Held by Provider] metroNIDAZOLE (FLAGYL) tablet 500 mg 500 mg oral BID multivitamin with folic acid 400 mcg tablet 1 tablet 1 tablet oral Daily pantoprazole DR (PROTONIX) extended release tablet 40 mg 40 mg oral Daily piperacillin-tazobactam (ZOSYN) 4.5 gram/120 mL in sodium chloride 0.9% (premix) 4.5 g 4.5 g intravenous Q6H DARIN pyridoxine (VITAMIN B6) tablet 100 mg 100 mg oral Daily sodium chloride 0.9% bolus 1,000 mL 1,000 mL intravenous Once thiamine (VITAMIN B1) tablet 100 mg 100 mg oral Daily vancomycin 750 mg/257.5 mL in sodium chloride 0.9% (premix) 750 mg 15 mg/kg intravenous Q12H Continuous Meds: Current Facility-Administered Medications Medication Dose Route Frequency Last Admin Lactated Ringer's 50 mL/hr intravenous Continuous 50 mL/hr at 12/04/232005 PRN Meds: PRN Medications Medication Dose Route Frequency Last Admin acetaminophen (TYLENOL) tablet 650 mg 650 mg oral Q4H PRN 650 mg at 12/01/23 1751 benzonatate (TESSALON) capsule 100 mg 100 mg oral TID PRN 100 mg at 12/04/23 1615 Carrier Fluids for Secondary Infusion - 0.9% Sodium Chloride 30 mL intravenous PRN dextrose gel in packet 15 g 15 g oral Q15 Min PRN Or dextrose (D10W) 10% bolus 250 mL 250 mL intravenous Q15 Min PRN glucagon injection 1 mg 1 mg intramuscular Q30 Min PRN guaiFENesin ER (MUCINEX) extended release tablet 1,200 mg 1,200 mg oral BID PRN ondansetron (ZOFRAN) injection 4 mg 4 mg intravenous Q4H PRN phenoL (CHLORASEPTIC) 1.4 % oral spray 1 spray 1 spray mouth/throat Q4H PRN 1 spray at 11/29/232057 polyethylene glycol (MIRALAX) packet 17 g 17 g oral Daily PRN ramelteon (ROZEREM) tablet 8 mg 8 mg oral Nightly PRN sodium chloride 0.9% flush 0.5-20 mL 0.5-20 mL intra-catheter PRN 10 mL at 12/04/231856 Physical Exam Examine below after resolution of acute event above. General: NAD, ill-appearing but clinically stable HEENT: NCAT. PERRL, EOMI, anicteric. MMM. Hearing intact to interview. Neck ROM intact to interview. Supple. Lungs: Unlabored on RA. No dyspnea with conversation. Rhonchrous breath sounds throughout bilateralanterior and posterior lung randall, though without wheezes. Cardiovascular: Rapid but RRR, normal S1 and S2, no murmurs/rubs/gallops. 2+ radial pulses. GI: Soft, mildly distended. Mildly tender in LLQ without rebound or guarding. Skin: No concerning rashes, lesions, or bruises on exposed skin. Extremities: No edema or cyanosis in BLE. WWP. Neurologic: Alert and oriented to interview, person, place, time, setting, and recent and remote personal history. Spontaneously moves all extremities, face symmetric to activation. No reported or observed focal motor or sensory neurologic deficits to gross exam. Psychiatric: Neutral to good mood with mood-syntonic affect. Does not appear to be responding to internal stimuli. Laboratory Results Recent Results (from the past 24 hour(s)) CBC with auto differential Collection Time: 12/04/23 12:19 AM Result Value Ref Range WBC 12.6 (H) 3.8 - 9.9 K/cumm Hgb 7.9 (L) 11.9 - 15.5 g/dL Hct 25.9 (L) 35.6 - 45.5 % Plt 478 (H) 150 - 400 K/cumm MPV 8.9 (L) 9.1 - 12.3 fL RBC 3.12 (L) 3.90 - 5.20 M/cumm MCV 83.0 81.3 - 96.4 fL MCH 25.3 (L) 27.1 - 33.3 pg MCHC 30.5 (L) 32.3 - 35.7 g/dL RDW CV 18.4 (H) 11.1 - 14.9 % RDW SD 55.4 (H) 35.7 - 48.1 fL NRBC abs 0.00 0.00 - 0.01 K/cumm Differential, auto Collection Time: 12/04/23 12:19 AM Result Value Ref Range Neutrophil abs 8.9 (H) 1.5 - 6.5 K/cumm Imm gran abs 0.1 0.0 - 0.1 K/cumm Lymphocyte abs 2.3 0.8 - 3.3 K/cumm Monocyte abs 1.0 (H) 0.2 - 0.8 K/cumm Eosinophil abs 0.2 0.0 - 0.5 K/cumm Basophil abs 0.1 0.0 - 0.1 K/cumm Neutrophil pct 70.8 % Imm gran pct 0.8 % Lymphocyte pct 18.0 % Monocyte pct 8.2 % Eosinophil pct 1.6 % Basophil pct 0.6 % POCT glucose Collection Time: 12/04/23 4:02 AM Result Value Ref Range Glucose, POC 147 70 - 199 mg/dL POCT glucose Collection Time: 12/04/23 11:36 AM Result Value Ref Range Glucose, POC 146 70 - 199 mg/dL POCT glucose Collection Time: 12/04/23 3:30 PM Result Value Ref Range Glucose, POC 192 70 - 199 mg/dL Comprehensive metabolic panel Collection Time: 12/04/23 4:01 PM Result Value Ref Range Sodium 136 135 - 145 mmol/L Potassium, pl 4.9 3.3 - 4.9 mmol/L Chloride 100 97 - 110 mmol/L CO2 22 22 - 32 mmol/L Anion gap 14 2 - 15 mmol/L BUN 19 6 - 25 mg/dL Creatinine 0.86 0.60 - 1.10 mg/dL Glucose 188 70 - 199 mg/dL Calcium 9.1 8.5 - 10.3 mg/dL Bilirubin, total 0.3 0.1 - 1.2 mg/dL Protein, pl 8.4 6.5 - 8.5 g/dL Albumin 3.0 (L) 3.5 - 5.0 g/dL Alk phos 102 40 - 130 Units/L ALT 11 7 - 45 Units/L AST 35 10 - 45 Units/L Blood gas, venous Collection Time: 12/04/23 4:01 PM Result Value Ref Range pH, Venous 7.30 (L) 7.32 - 7.43 PCO2, Venous 48 40 - 50 mmHg PO2, Venous 35 mmHg HCO3 Venous, Calculated 25 20 - 30 mmol/L BE, venous -3 mmol/L eGFR Collection Time: 12/04/23 4:01 PM Result Value Ref Range eGFR 75 >=60 mL/min/1.73 m2 Lipase Collection Time: 12/04/23 4:01 PM Result Value Ref Range Lipase 87 10 - 99 Units/L Troponin I high-sensitivity series (baseline, 2hr, 4hr, 6hr) Collection Time: 12/04/23 4:02 PM Result Value Ref Range Trop I hs 5 <=17 ng/L CBC with auto differential Collection Time: 12/04/23 4:02 PM Result Value Ref Range WBC 24.1 (H) 3.8 - 9.9 K/cumm Hgb 9.8 (L) 11.9 - 15.5 g/dL Hct 33.2 (L) 35.6 - 45.5 % Plt 760 (H) 150 - 400 K/cumm MPV 9.3 9.1 - 12.3 fL RBC 3.87 (L) 3.90 - 5.20 M/cumm MCV 85.8 81.3 - 96.4 fL MCH 25.3 (L) 27.1 - 33.3 pg MCHC 29.5 (L) 32.3 - 35.7 g/dL RDW CV 18.6 (H) 11.1 - 14.9 % RDW SD 58.0 (H) 35.7 - 48.1 fL NRBC abs 0.00 0.00 - 0.01 K/cumm Differential, auto Collection Time: 12/04/23 4:02 PM Result Value Ref Range Neutrophil abs 19.2 (H) 1.5 - 6.5 K/cumm Imm gran abs 0.2 (H) 0.0 - 0.1 K/cumm Lymphocyte abs 4.0 (H) 0.8 - 3.3 K/cumm Monocyte abs 0.6 0.2 - 0.8 K/cumm Eosinophil abs 0.1 0.0 - 0.5 K/cumm Basophil abs 0.1 0.0 - 0.1 K/cumm Neutrophil pct 79.6 % Imm gran pct 0.6 % Lymphocyte pct 16.6 % Monocyte pct 2.5 % Eosinophil pct 0.3 % Basophil pct 0.4 % POCT lactate Collection Time: 12/04/23 5:19 PM Result Value Ref Range Lactate POC i-STAT 1.7 0.7 - 2.2 mmol/L Comprehensive metabolic panel Collection Time: 12/04/23 5:24 PM Result Value Ref Range Sodium 135 135 - 145 mmol/L Potassium, pl 4.4 3.3 - 4.9 mmol/L Chloride 102 97 - 110 mmol/L CO2 23 22 - 32 mmol/L Anion gap 10 2 - 15 mmol/L BUN 18 6 - 25 mg/dL Creatinine 0.83 0.60 - 1.10 mg/dL Glucose 186 70 - 199 mg/dL Calcium 8.1 (L) 8.5 - 10.3 mg/dL Bilirubin, total 0.3 0.1 - 1.2 mg/dL Protein, pl 6.8 6.5 - 8.5 g/dL Albumin 2.5 (L) 3.5 - 5.0 g/dL Alk phos 82 40 - 130 Units/L ALT 8 7 - 45 Units/L AST 22 10 - 45 Units/L Magnesium Collection Time: 12/04/23 5:24 PM Result Value Ref Range Magnesium 2.5 1.4 - 2.5 mg/dL eGFR Collection Time: 12/04/23 5:24 PM Result Value Ref Range eGFR 78 >=60 mL/min/1.73 m2 Lipid panel Collection Time: 12/04/23 5:24 PM Result Value Ref Range Cholesterol 71 30 - 199 mg/dL Triglycerides 75 <=149 mg/dL HDL 27 (L) >=40 mg/dL LDL, calculated 28 <=129 mg/dL Non-HDL Cholesterol 44 mg/dL Chol/HDL ratio 3 Renal function panel Collection Time: 12/04/23 5:58 PM Result Value Ref Range Sodium 136 135 - 145 mmol/L Potassium, pl 4.3 3.3 - 4.9 mmol/L Chloride 105 97 - 110 mmol/L CO2 24 22 - 32 mmol/L Anion gap 7 2 - 15 mmol/L BUN 19 6 - 25 mg/dL Creatinine 0.82 0.60 - 1.10 mg/dL Glucose 197 70 - 199 mg/dL Calcium 8.0 (L) 8.5 - 10.3 mg/dL Phosphorus, pl 2.9 2.3 - 4.5 mg/dL Albumin 2.4 (L) 3.5 - 5.0 g/dL Troponin I high-sensitivity 2-hour Collection Time: 12/04/23 5:58 PM Result Value Ref Range Trop I hs 770 (Critical) <=17 ng/L Trop I hs delta 765 (Critical) ng/L Trop I hs interp Significant (Critical) CBC with auto differential Collection Time: 12/04/23 5:58 PM Result Value Ref Range WBC 23.9 (H) 3.8 - 9.9 K/cumm Hgb 7.3 (L) 11.9 - 15.5 g/dL Hct 24.4 (L) 35.6 - 45.5 % Plt 477 (H) 150 - 400 K/cumm MPV 8.5 (L) 9.1 - 12.3 fL RBC 2.89 (L) 3.90 - 5.20 M/cumm MCV 84.4 81.3 - 96.4 fL MCH 25.3 (L) 27.1 - 33.3 pg MCHC 29.9 (L) 32.3 - 35.7 g/dL RDW CV 18.4 (H) 11.1 - 14.9 % RDW SD 55.9 (H) 35.7 - 48.1 fL NRBC abs 0.00 0.00 - 0.01 K/cumm Lactate Collection Time: 12/04/23 5:58 PM Result Value Ref Range Lactate 1.9 0.7 - 2.0 mmol/L Differential, auto Collection Time: 12/04/23 5:58 PM Result Value Ref Range Neutrophil abs 21.7 (H) 1.5 - 6.5 K/cumm Imm gran abs 0.2 (H) 0.0 - 0.1 K/cumm Lymphocyte abs 0.7 (L) 0.8 - 3.3 K/cumm Monocyte abs 1.2 (H) 0.2 - 0.8 K/cumm Eosinophil abs 0.0 0.0 - 0.5 K/cumm Basophil abs 0.1 0.0 - 0.1 K/cumm Neutrophil pct 90.7 % Imm gran pct 1.0 % Lymphocyte pct 2.9 % Monocyte pct 5.0 % Eosinophil pct 0.1 % Basophil pct 0.3 % eGFR Collection Time: 12/04/23 5:58 PM Result Value Ref Range eGFR 79 >=60 mL/min/1.73 m2 Critical result callback Cardio chemistry Collection Time: 12/04/23 5:58 PM Result Value Ref Range Date Notified 20231204 Time Notified 1848 Test name Trop I hs 2hr Called/Read Back Isabell Mackay Credentials RN Called By DVB POCT glucose Collection Time: 12/04/23 7:55 PM Result Value Ref Range Glucose, POC 226 (H) 70 - 199 mg/dL Troponin I high-sensitivity 4-hour Collection Time: 12/04/23 8:14 PM Result Value Ref Range Trop I hs 1,061 (Critical) <=17 ng/L Trop I hs delta 1,056 (Critical) ng/L Trop I hs interp Significant (Critical) CBC with auto differential Collection Time: 12/04/23 8:30 PM Result Value Ref Range WBC 24.2 (H) 3.8 - 9.9 K/cumm Hgb 7.6 (L) 11.9 - 15.5 g/dL Hct 25.3 (L) 35.6 - 45.5 % Plt 483 (H) 150 - 400 K/cumm MPV 8.6 (L) 9.1 - 12.3 fL RBC 2.94 (L) 3.90 - 5.20 M/cumm MCV 86.1 81.3 - 96.4 fL MCH 25.9 (L) 27.1 - 33.3 pg MCHC 30.0 (L) 32.3 - 35.7 g/dL RDW CV 18.4 (H) 11.1 - 14.9 % RDW SD 58.1 (H) 35.7 - 48.1 fL NRBC abs 0.00 0.00 - 0.01 K/cumm Differential, auto Collection Time: 12/04/23 8:30 PM Result Value Ref Range Neutrophil abs 22.2 (H) 1.5 - 6.5 K/cumm Imm gran abs 0.2 (H) 0.0 - 0.1 K/cumm Lymphocyte abs 0.7 (L) 0.8 - 3.3 K/cumm Monocyte abs 1.1 (H) 0.2 - 0.8 K/cumm Eosinophil abs 0.0 0.0 - 0.5 K/cumm Basophil abs 0.1 0.0 - 0.1 K/cumm Neutrophil pct 91.8 % Imm gran pct 0.7 % Lymphocyte pct 2.8 % Monocyte pct 4.4 % Eosinophil pct 0.1 % Basophil pct 0.2 % Imaging Results PET/CT FDG Skull to Thigh Narrative: EXAMINATION: TUMOR FDG-PET/CT IMAGING DATE OF STUDY: 12/04/2023 SCANNER: [facility] [employer] ([employer]). This is a high-resolution scanner, which [...] obtained. The study was interpreted on the [employer] workstation. The mean liver SUV (reported for water quality analyst purposes) is 1.5 The total scanned area [...] There is multinodular right thyroid nodule goiter. Impression: 1. Slight interval increase in size of [...] it. Electronically signed by: Ganesh Marie M.D. Path Results: Sections show alveolated lung parenchyma with widen septae, increased interstitial inflammatory infiltration, type II pneumonocyte hyperplasia, increased alveolar foamy macrophages and rare microthrombi. Bronchiolitis with predominant chronic inflammation is also noted. We do not see definitive evidence of vasculitis/endotheliolitis, viral cytopathic changes, granulomatous inflammation, necrosis or malignancy. Special stains for GMS, AFB, and trichrome were performed with proper controls. GMS and AFB stains show no fungal organisms or acid-fast bacteria. The trichrome stain shows no significant increase of interstitial fibrosis. Overall the findings are those of organizing lung injury, with the differential diagnosis includinginfectious etiology, autoimmune, or drug-induced. Correlation with imaging findings and microbiology study is strongly recommended. ASSESSMENT & PLAN Darius Russo is a 63 y.o. woman with relevant PMH of IBD (2022 UC, now c/f Crohn's), adnexal mass, HTN, T2DM directly admitted for expedited therapy for IBD iso progressive weight loss, found to have pulmonary lesions concerning for infectious vs malignancy. #Possible evolving sepsis Patient developed SVT with acute abdominal pain, and subsequently fever and hypotension with MAPs in the 50s, sustained, 12/03 after BM. Suspect possible transient bacteremia (?gut source). Given tenuous clinical status, treating as sepsis. - vancomycin 15mg/kg q12h, piperacillin-tazobactam 4.5g q6h (12/03-) - s/p IVF bolus. Continue mIVF #Likely type 2 NC: 12/03 Trops 5>770>1061>1176 after acute SVT 12/03. Suspect related to demand ischemia. Trend to peak. #IBD c/b recurrent diverticulitis, contained colonic perforation #splenic/liver abscesses, ?seeding from microperforation Patient was diagnosed with ulcerative colitis in 2022, since which time she has been prescribed rectal mesalamine. She has had recurrent admissions for sigmoid diverticulitis which have been managed medically; most recently, patient was started on a 4wk course of ciprofloxacin/metronidazole (11/05). 11/12 colonoscopy with cryptitis and inflammation now c/f colonic Crohn's, MRI dated same with sigmoid diverticulitis, contained perforation, rectal/sigmoid inflammation. Patient's symptoms include daily diarrhea (now improving) and profound weight loss as detailed elsewhere. She was admitted for remicade vs operative management, course c/b likely infectious process (lungs, liver, spleen) preventi ng remicade initiation. GI recs to consult CRS and secondary school registrar for operative intervention in setting of pending infectious workup. Per CRS, plan for TAC+cyst resection on 12/16, can be discharged in meantime. - GI c/s - ID c/s, recs appreciated: abx, work-up as below - CRS c/s, rec TAC + cyst resection 12/16 - Business Office Representative c/s - ciprofloxacin 500mg BID, metronidazole 500mg BID (11/05-12/03); resume when de-escalating broad spectrum antibiotics above #Cavitary lung lesions s/p bronch with BAL/biopsy Patient with symptoms including cough [place] admission CT CAP11/26/23 with cavitary lung lesions and associated lymphadenopathy, not seen on CT ~1 month ago; patient also with liver/spleen and adnexal masses as below. No clear risk factors for immunosuppresionsave acute severe malnutrition. Differential is broad and includes infectious, autoimmune, and malignant processes. Diagnostic work-up in addition to imaging includes: BAL 11/27 with biopsy (negative). Blood cx (mold, fungal, bacteria) NGTD; CrAg, Blasto EIA, DFA, BAL AFB, galactomannan negative. Bronch path results suggest organizing lung injury, no evidence of infection, cytology is negative for infection/malignancy. Will need recommendations from ID/pulm re follow-up management/observation of lung lesions. - ID c/s, signed off with recs to continue abx through surgery. - Pulm c/s, recs/intervention (BAL 11/27) appreciated: disfavor malignancy - Abx as above #FTT/severe malnutrition #Acute weight loss 65lb weight loss over 4mo; suspect related to multifocal process affecting lung/liver/spleen or mass effect from her adnexal mass. Patient endorses poor appetite, early satiety. Repeat folate/b12 labs after replenishment wnl - Nutrition c/s, recs appreciated - s/p HD thiamine, thiamine 100mg PO daily - folic acid 1mg daily, MVI daily - pyridoxine B6 100mg PO daily #Liver/spleen abscesses: Reproduced on 11/12 MRI, too small to drain and stable from prior imaging.Improved on subsequent CT CAP. Liver also with diffuse iron deposition. Abx as above. #Adnexal mass: 11/12 MRI, 16.4 x 11.6 x 14.2cm multiseptate cystic R ovary mass. Business Office Representative onc c/s, suspect benign, per pulm, concern for possible malignancy in lungs, plan to reach out to secondary school registrar re issues. #Hypocalcemia: Intermittent throughout admission. Possibly related to poor dietary intake. 11/29 25OH-VitD 39 from 10/26. #HTN: Hold home losartan 25mg daily while c/f shock #T2DM: A1c 5.7%. HDSSI. Code Status: Full Code Disposition: pending clinical course Best contact: Primary Emergency Contact: JEAN CLAUDE RUSSO Diet: Adult Diet Regular VTE Prophylaxis: enoxaparin 40mg SQ qhs PT: PT Recommendation/Plan: Home with family, Home with intermittent assist, No further PT indicated OT:OT Recommendation: Home with family, Home with intermittent assist, No further OT indicated María Graham MD PhD Resident Physician, Internal Medicine Cosigned by Álvaro Radford MD at 12/05/2023 4:03 PM CDT Associated attestation - Álvaro Radford MD - 12/05/2023 4:03 PM CDT Attending Documentation I have seen and examined the patient on 12/04/2023. I agree with the findings and plan of care as documented in the resident's/fellow's note. and as discussed with the resident/fellow. PET today showing interval improvement of pulm nodules, interval worsening of colonic perf. Doing very well in AM, eating, ambulating Later had ACT with SVT, hypotension, and later fever and demand-related troponin elevation. No freeair on plain films. Suspect ongoing bacterial translocation from colonic perf. Cultures obtained, abx broadened, started on IV fluids. Supplementary Attestation Today, I am treating the patient for lung infection, likely penetrating Crohns, SVT which is in severe exacerbation, progression, or experiencing treatment side effects as evidenced by need for antimicrobials and surgery, rapid response, HR 170s as described in the note. Reviewed records from the following unique sources (external institutions or providers from different services): GI notes, Pulm notes, CRS Notes, ID notes. Independently interpreted CXR and abd XR which shows no free air. Discussed management of lung infection with ID, Pulm, IBD with GI The patient is being intensively monitored for drug toxicity from abx by checking CBC, CMP, QTc. The patient required consideration/discussion of transfer to a higher level of care for the treatment of SVT and hypotension. Álvaro Radford MD * Vicki King MD - 12/04/2023 7:14 AM CDT Images from the original note were not included. [facility] Daily Progress Note Colorectal Surgery Surgery PATIENT NAME: Darius Russo : 1960 ADMIT DATE: 11/25/2023 6:29 PM LOS: 9 Subjective CHIEF COMPLAINT: Physical deconditioning INTERVAL HISTORY: -NAEO -AFVSS -Continues to have BM Objective MEDICATIONS: Scheduled: ciprofloxacin, 500 mg, oral, BID - special enoxaparin, 40 mg, subcutaneous, Daily-2100 folic acid, 1 mg, oral, Daily insulin lispro, 0-5 Units, subcutaneous, Nightly losartan, 25 mg, oral, Daily metroNIDAZOLE, 500 mg, oral, BID multivitamin therapeutic, 1 tablet, oral, Daily pantoprazole DR, 40 mg, oral, Daily pyridoxine, 100 mg, oral, Daily thiamine, 100 mg, oral, Daily Infusions: PRN: acetaminophen benzonatate sodium chloride 0.9% dextrose OR dextrose glucagon ondansetron phenoL polyethylene glycol ramelteon sodium chloride 0.9% VITALS: 24hr Min/Max: Temp Min: 36.3 ??C (97.3 ??F) Max: 36.9 ??C (98.4 ??F) Pulse Min: 96 Max: 105 BP Min: 124/65 Max: 134/54 Resp Min: 18 Max: 18 SpO2 Min: 96 % Max: 100 % Most Recent: Vitals: 12/03/23 1425 12/03/23 1700 12/03/23205412/04/23 0405 BP: 126/71 129/66 127/63 BP Location: Left arm Left arm Left arm Patient Position: Sitting HOB 30 degrees HOB 30 degrees Pulse: 104 103 105 Resp: 18 18 18 Temp: 36.3 ??C (97.3 ??F) 36.9 ??C (98.4 ??F) 36.8 ??C (98.2 ??F) TempSrc: Oral Oral Oral SpO2: 100% 98% 96% Weight: 57.8 kg (127 lb 6.4 oz) Height: Intake/Output Summary (Last 24 hours) at 12/04/2023 0715 Last data filed at 12/03/20232029 Gross per 24 hour Intake 1545 ml Output 200 ml Net 1345 ml PHYSICAL EXAM: General: Lying in bed, conversation, well-developed Psych: alert and calm HEENT: normocephalic/atraumatic, anicteric Pulm: Normal work of breathing Cardiac: Regular rate and rhythm GI: abd soft, nondistended, mildly tender Neuro: ambulatory, non-focal Skin: warm and dry Musculoskeletal: no deformities LAB/ RADIOLOGY/ DIAGNOSTIC REVIEW: Chem/LFT Lab History Latest Ref Rng & Units 11/29/2023 11/30/2023 22:55 12/01/2023 21:46 12/03/2023 00:09 Labs-Chem/LFT Sodium 135 - 145 mmol/L 131 135 134 134 Creatinine 0.60 - 1.10 mg/dL 0.86 0.74 0.78 0.77 Bilirubin, total 0.1 - 1.2 mg/dL 0.3 AST 10 - 45 Units/L 16 ALT 7 - 45 Units/L 6 Alk phos 40 - 130 Units/L 78 CrCl- Actual Body Weight (Cockcroft-Gault) 60.5 70.3 66.7 66.4 Details More values are hidden. Newest values shown. Go to activity for more data. Hematology Lab History Latest Ref Rng & Units 11/30/2023 22:55 12/01/2023 21:46 12/03/2023 00:09 12/04/2023 00:19 Labs - Hematology WBC 3.8 - 9.9 K/cumm 17.2 13.4 12.5 12.6 Total Hb, POC 11.9 - 15.5 g/dL 8.3 8.4 8.3 7.9 Hct 35.6 - 45.5 % 27.5 27.3 28.2 25.9 Plt 150 - 400 K/cumm 382 519 481 478 Neutrophil abs 1.5 - 6.5 K/cumm 13.8 10.2 8.8 8.9 Lymphocytes, abs 0.8 - 3.3 K/cumm 2.0 1.9 2.5 2.3 I have reviewed the laboratory results. ASSESSMENT/ PLAN: 63 y.o. female with hx of DM, HTN, and recently diagnosed IBD (originally thought to be UC but is now more likely to be Crohn's) who has persistent colitis of her sigmoid colon with microperforation,multiple abscesses of the liver and spleen, and now new left upper lobe lung lesions, some of whichare cavitary. She is not a candidate for anti-TNF treatment in the setting of her lung lesions until etiology is determined. Pt also has a new pelvic mass that requires resection. -Continue to optimize nutrition with adequate caloric and protein intake -Continue operative planning -Follow up PET/CT Vicki King MD 12/04/2023 Cosigned by Yo Perez MD at 12/04/2023 7:51 AM CDT Associated attestation - Yo Perez MD - 12/04/2023 7:51 AM CDT I have seen and examined the patient on 12/04/23. I agree with the findings and plan of care as documented in the resident's/fellow's note.. * Sylvia Trujillo, ESTHER - 12/03/2023 2:26 PM CDT NUTRITION ASSESSMENT Nutrition Status: Patient meets criteria for severe chronic malnutrition, reference AAIM ([place]) guidelines. Present on Admission: Yes REASON FOR ASSESSMENT: Follow Up Encounter Date: 12/03/23 2:26 PM Admission Date: 11/25/2023 LOS: 8 days HPI: Patient is a 63 y.o. female female PMH HTN, T2DM, s/p cholecystectomy, a large adnexal mass c/f malignancy, and suspected crohn???s colitis who presents for active colitis. Objective Past Medical History: Diagnosis Date Adrenal mass (HCC) Diabetes mellitus (HCC) Diverticulitis Hypertension Past Surgical History: Procedure Laterality Date CHOLECYSTECTOMY 08/2023 COLONOSCOPY 2021 TUBAL LIGATION Social History Tobacco Use Smoking status: Never Smokeless tobacco: Never Substance and Sexual Activity Drug use: Never Sexual activity: Defer Alcohol Use: Not At Risk (11/13/2023) AUDIT-C Frequency of Alcohol Consumption: Never Average Number of Drinks: Patient does not drink Frequency of Binge Drinking: Never MEDICATION/LAB REVIEW: Scheduled Meds: ciprofloxacin, 500 mg, oral, BID - special enoxaparin, 40 mg, subcutaneous, Daily-2100 folic acid, 1 mg, oral, Daily insulin lispro, 0-4 Units, subcutaneous, Nightly insulin lispro, 0-5 Units, subcutaneous, TID with meals losartan, 25 mg, oral, Daily metroNIDAZOLE, 500 mg, oral, BID multivitamin therapeutic, 1 tablet, oral, Daily pantoprazole DR, 40 mg, oral, Daily pyridoxine, 100 mg, oral, Daily thiamine, 100 mg, oral, Daily Continuous Infusions: PRN Meds: acetaminophen benzonatate sodium chloride 0.9% dextrose OR dextrose glucagon ondansetron phenoL polyethylene glycol ramelteon sodium chloride 0.9% Recent Labs Lab Units 12/03/23 0009 12/01/23 2146 11/30/23 2255 11/29/23 2051 11/29/23 0046 SODIUM mmol/L 134* < > 135 131* 135 POTASSIUM PLASMA mmol/L 4.3 < > 3.9 4.0 4.3 CHLORIDE mmol/L 100 < > 100 101 101 CO2 mmol/L 26 < > 25 24 28 BUN SERUM mg/dL 16 < > 10 12 15 CREATININE mg/dL 0.77 < > 0.74 0.86 0.82 [id number] mL/min/1.73 m2 86 < > 90 75 79 CALCIUM mg/dL 8.6 < > 8.4* 7.9* 8.4* ALBUMIN g/dL 2.7* < > 2.5* -- -- PHOSPHORUS PLASMA mg/dL 3.3 < > 3.0 2.7 3.5 MAGNESIUM mg/dL -- -- 1.8 1.7 2.0 < > = values in this interval not displayed. Recent Labs Lab Units 12/03/23 1128 12/03/23 0848 12/03/23 0009 12/02/23 2047 12/02/23 1647 12/02/23 1315 12/02/23 1207 GLUCOSE mg/dL -- -- 140 -- -- -- -- POC GLUCOSE MONITOR mg/dL 244* 145 -- 216* 174 133 196 ALT Date Value Ref Range Status 11/30/2023 6 (L) 7 - 45 Units/L Final AST Date Value Ref Range Status 11/30/2023 16 10 - 45 Units/L Final Alk phos Date Value Ref Range Status 11/30/2023 78 40 - 130 Units/L Final Lab Results Component Value Date HGBA1C 5.7 (H) 11/04/2023 HDL 33 (L) 10/27/2023 LDLCALC 19 10/27/2023 CHOL 69 10/27/2023 TRIG 78 10/27/2023 NURSING ASSESSMENT: Last BM Date: 12/03/23 Bowel Sounds (All Quadrants): Active Juliano Scale Score: 19 Skin Integrity: Surgical incision Vital Signs BP: 129/60 Temp: 36.6 ??C (97.9 ??F) Pulse: 98 Resp: 18 SpO2: 99 % Intake/Output Summary (Last 24 hours) at 12/03/2023 1426 Last data filed at 12/03/2023 0930 Gross per 24 hour Intake 1190 ml Output 650 ml Net 540 ml Adult Malnutrition Scoring Tool (MST) What diet do you follow at home?: regular diet Have You Recently Lost Weight Without Trying?: Yes (Comment) How Much Weight Have You Lost?: 34 lb or more Have you been eating poorly because of a decreased appetite?: Yes Malnutrition Screening Tool (MST) Score: 5 Hunger Screen - Admission Within the past 12 months the food we bought just didn't last and we didn't have money to get more.: Never true Within the past 12 months we worried whether our food would run out before we got money to buy more.: Never true Within the past 12 months, you worried that your food would run out before you got the money to buymore.: Never true Within the past 12 months, the food you bought just didn't last and you didn't have money to get more.: Never true Anthropometrics Weight: 57.8 kg (127 lb 6.4 oz) Admission Weight : 58.7 kg Weight Change: -0.95 kg (-2.10 lbs) IBW/kg (Calculated) : 47.6 kg Height: 154.9 cm (5' 1 ) Weight in (lb) to have BMI = 25: 132 BMI (Calculated): 24.1 Wt Readings from Last 10 Encounters: 12/03/23 57.8 kg (127 lb 6.4 oz) 11/25/23 58.2 kg (128 lb 3.2 oz) 11/13/23 63 kg (139 lb) 11/05/23 61.5 kg (135 lb 9.6 oz) 10/27/23 63 kg (139 lb) 10/23/23 63 kg (139 lb) 10/03/23 66.9 kg (147 lb 7.8 oz) 10/02/23 67.4 kg (148 lb 8 oz) ESTIMATED NEEDS: Weight Used for Equation Calculations (RD Determined): 58.7 kg (129 lb 6.6 oz) Total Kcal/kg Estimated Needs : 1761 Kcal/k. Type of Weight Used for Estimated Kcals: RD determined Total Protein Estimated Needs (gm): 70.49 Protein Needs Based on g/k.2 Type of Weight Used for Estimated Protein : Current Dietary Orders (From admission, onward) Start Ordered 12/03/23 0700 Oral Nutrition Supplements ([facility]) Select Supplement: [employer] English 1.0 - Vanilla With Breakfast and Dinner Question: ([facility]) Select Supplement: Answer: Addictive 1.0 - Vanilla 12/02/23 1838 12/01/23 1352 Adult Diet Regular, Restricted; Consistent Carbohydrate Diet effective now Question Answer Comment ([facility]) Diet type Regular ([facility]) Diet type Restricted Diabetic: Consistent Carbohydrate 12/01/23 1352 11/26/23 2100 Bedtime snack At bedtime Comments: If bedtime BG is less than 100mg/dl, give patient a 15 gram carbohydrate snack. 11/25/231 Allergies: Reviewed. IMPRESSION: Patient's appetite has significantly improved. Patient is now eating >1,000 calories a day. Today she ate 100% of her breakfast, all of her pulled pork and a protein bar. Patient is going to drinka [employer] shake and have cheesecake as snack. Patient admitted at [address] re-weighed patient on standing scale and she was 127.4 lbs (improvement!). MD told patient to aim for 1,[address] stated around 1,400 calories at minimum to optimize nutrition before potential surgery (colostomy?) Patient's appetite is great, denies any n/v. Bowel movements are under control. And patient currently takes B12 sublingual and receiving B1 and B6 supplementation. AAIM ([place]) MALNUTRITION ASSESSMENT: Date of completion: 11/27/2023 ASPEN/AND Malnutrition Screening: Chronic illness or injury severe Subcutaneous Fat Loss Severity: Severe Muscle Mass Loss Severity: Severe Patient Meets Criteria for Severe Malnutrition: Yes NUTRITION FOCUSED PHYSICAL EXAM: Completed. Subcutaneous Fat Loss Orbital Region - Surrounding the Eye: Hollow look Upper Arm Region - Triceps/Biceps: Some depth pinch but not ample Muscle Loss Moravian Region - Temporalis Muscle: Slight depression Clavicle Bone Region - Pectoralis Major, Deltoid, Trapezius Muscles: Protruding, prominent bone Clavicle and Acromion Bone Region - Deltoid Muscle: Shoulder to arm joint looks square Anterior Thigh and Patellar Region - Quadricep Muscle: Depression along thigh Posterior Calf Region - Gastrocnemius Muscle: Thin, minimal to no muscle definition NUTRITION DIAGNOSIS: Nutrition Diagnosis 1: Protein-Calorie Malnutrition - Severe Related to: Chronic illness/injury Evidenced by: Physical finding INTERVENTION(S): Summary: Medical food supplement, Encouragement, Meals and snacks Discussed at length various protein shake options. Provided samples of Ensure plant, Ayla farm 1.0 and ayla farm 1.4 and carnation instant breakfast. Patient has premier (which she thiks is too sweet) and likes doubleTwist (but it is lower in calories) Weighed patient and updated chart Continue current diet. GOAL(S): Promote slow and steady weight gain 1/2 to 1 pound per week MONITORING/EVALUATION: Appetite, Discharge plans, I/O, Plan of care, Labs Sylvia Trujillo, MS [place], [facility], [place] [phone] * Vicki King MD - 12/03/2023 12:07 PM CDT Images from the original note were not included. [facility] Daily Progress Note Colorectal Surgery Surgery PATIENT NAME: Darius Russo : 1960 ADMIT DATE: 11/25/2023 6:29 PM LOS: 8 Subjective CHIEF COMPLAINT: Physical deconditioning INTERVAL HISTORY: No acute events overnight. Pt states that her bowel movements were better. She continues to improve her PO intake. Objective MEDICATIONS: Scheduled: ciprofloxacin, 500 mg, oral, BID - special enoxaparin, 40 mg, subcutaneous, Daily-2100 folic acid, 1 mg, oral, Daily insulin lispro, 0-4 Units, subcutaneous, Nightly insulin lispro, 0-5 Units, subcutaneous, TID with meals losartan, 25 mg, oral, Daily metroNIDAZOLE, 500 mg, oral, BID multivitamin therapeutic, 1 tablet, oral, Daily pantoprazole DR, 40 mg, oral, Daily pyridoxine, 100 mg, oral, Daily thiamine, 100 mg, oral, Daily Infusions: PRN: acetaminophen benzonatate sodium chloride 0.9% dextrose OR dextrose glucagon ondansetron phenoL polyethylene glycol ramelteon sodium chloride 0.9% VITALS: 24hr Min/Max: Temp Min: 36.4 ??C (97.5 ??F) Max: 37.1 ??C (98.8 ??F) Pulse Min: 91 Max: 109 BP Min: 120/74 Max: 134/54 Resp Min: 18 Max: 18 SpO2 Min: 97 % Max: 99 % Most Recent: Vitals: 12/03/23 0300 12/03/23 0825 12/03/23 0830 12/03/23 0835 BP: 128/62 134/54 124/65 129/60 BP Location: Right arm Left arm Left arm Patient Position: Lying;HOB 30 degrees Sitting Sitting Pulse: 91 96 97 98 Resp: 18 18 Temp: 36.6 ??C (97.9 ??F) TempSrc: Oral SpO2: 97% 98% 98% 99% Weight: Height: Intake/Output Summary (Last 24 hours) at 12/03/2023 1211 Last data filed at 12/03/2023 0930 Gross per 24 hour Intake 1105 ml Output 850 ml Net 255 ml PHYSICAL EXAM: General: Lying in bed, conversation, well-developed Psych: alert and calm HEENT: normocephalic/atraumatic, anicteric Pulm: Normal work of breathing Cardiac: Regular rate and rhythm GI: abd soft, nondistended, mildly tender Neuro: ambulatory, non-focal Skin: warm and dry Musculoskeletal: no deformities LAB/ RADIOLOGY/ DIAGNOSTIC REVIEW: Chem/LFT Lab History Latest Ref Rng & Units 11/29/2023 11/30/2023 22:55 12/01/2023 21:46 12/03/2023 00:09 Labs-Chem/LFT Sodium 135 - 145 mmol/L 131 135 134 134 Creatinine 0.60 - 1.10 mg/dL 0.86 0.74 0.78 0.77 Bilirubin, total 0.1 - 1.2 mg/dL 0.3 AST 10 - 45 Units/L 16 ALT 7 - 45 Units/L 6 Alk phos 40 - 130 Units/L 78 CrCl- Actual Body Weight (Cockcroft-Gault) 60.5 70.3 66.7 67.5 Details More values are hidden. Newest values shown. Go to activity for more data. Hematology Lab History Latest Ref Rng & Units 11/29/2023 11/30/2023 22:55 12/01/2023 21:46 12/03/2023 00:09 Labs - Hematology WBC 3.8 - 9.9 K/cumm 14.2 17.2 13.4 12.5 Total Hb, POC 11.9 - 15.5 g/dL 7.5 8.3 8.4 8.3 Hct 35.6 - 45.5 % 24.3 27.5 27.3 28.2 Plt 150 - 400 K/cumm 443 382 519 481 Neutrophil abs 1.5 - 6.5 K/cumm 11.0 13.8 10.2 8.8 Lymphocytes, abs 0.8 - 3.3 K/cumm 1.6 2.0 1.9 2.5 Details More abnormal values are hidden. Newest values shown. Go to activity for more data. More values are hidden. Newest values shown. Go to activity for more data. I have reviewed the laboratory results. ASSESSMENT/ PLAN: 63 y.o. female with hx of DM, HTN, and recently diagnosed IBD (originally thought to be UC but is now more likely to be Crohn's) who has persistent colitis of her sigmoid colon with microperforation,multiple abscesses of the liver and spleen, and now new left upper lobe lung lesions, some of whichare cavitary. She is not a candidate for anti-TNF treatment in the setting of her lung lesions until etiology is determined. Pt also has a new pelvic mass that requires resection. Had an extensive conversation with the patients yesterday regarding her surgical options and answerquestions patient and her had yesterday. Discussed with patient that she should increase her caloric and protein intake in preparation for surgery. -Will continue operative planning Vicki King MD 12/03/2023 Cosigned by Yo Perez MD at 12/03/2023 2:23 PM CDT * PérezPrudenceAlison Tomlinson - 12/03/2023 8:21 AM CDT Physical Therapy Physical Therapy Evaluation Note NOTE: This is a summary note of the brown components of the evaluation session. For full details, review chart for all flowsheets documented on by this physical therapy clinician on this date. Vital signs are documented in the vital signs flowsheet. For questions, please review the treatment team and contact the PT or FITNESS AND WELLNESS COORDINATOR currently assigned to this patient. If a physical therapy clinician is not assigned to this patient, please call [phone]. 12/03/23 0821 General Chart Reviewed Yes Session Type Evaluation (inital d/c) PT Received On 12/03/23 Safe Environment Arm band checked;Patient found sitting at edge of bed;Gait belt utilized for all out of bed mobility Subjective Agreeable to Therapy Subjective Comment Im ready to move Family/Caregiver Present No Physical Therapy-Patient Goal To return home Precautions Precautions Fall risk Home Living Type of Home House Home Layout One level Home Access Stairs to enter with rails Entrance Stairs-Rails Both Entrance Stairs-Number of Steps 6 Home Mobility Equipment-Available 4-Wheeled walker;Single point cane Home Mobility Equipment-Currently Using None Prior Function Level of Scott Independent functional transfers;Independent with ambulation Lives With Spouse Receives Help From Spouse/Significant other ( FT assist, retired) Fall within the last 6 months Yes Fall within the last 6 months comment one fall, reports sliding from chair to the floor Activity Tolerance Activity Tolerance Comments Lawson: very light Pain Assessment Pain Assessment No/denies pain Cognition Arousal/Alertness Alert;Appropriate responses to stimuli Orientation Oriented X4 (person, place, time, situation) Following Commands Follows all commands and directions without difficulty Safety Judgment Good awareness of safety precautions Compliance/Behavior Easy to engage Balance Tests Balance Tests Yes Dynamic Gait Index Gait Level Surface 3 Change in Gait Speed 3 Gait with Horizontal Head Turns 3 Gait with Vertical Head Turns 3 (Modified DGI: 01/28) Balance Balance Yes Static Sitting Balance Static Sitting-Balance Support No upper extremity supported Static Sitting-Sitting Surface Bed Static Sitting-Level of Assistance Independent Static Standing Balance Static Standing-Balance Support No upper extremity supported Static Standing-Standing Surface Floor Static Standing-Level of Assistance Independent Bed Mobility Bed Mobility No (Pt found EOB) Transfers Transfer Yes Transfer 1 Transfer From 1 Sit Transfer Type 1 To and from Transfer to 1 Stand Technique 1 Sit to stand;Stand to sit Transfer Device 1 No device Transfer Level of Assistance 1 Independent Ambulation Ambulation Yes Ambulation 1 Distance (ft) 1 200 Surface 1 Level tile Device 1 No device Assistance 1 Independent Stairs Stairs No (Pt states that she has no concerns with stairs at this time and has good safety awareness of goingup and down steps with handrail.) RLE Assessment RLE Assessment WFL LLE Assessment LLE Assessment WFL Basic Mobility - 6 Click How much difficulty does the patient have: Turning over in bed 4 How much difficulty does the patient currently have: Sitting down and standing up from a chair witharms? 4 How much difficulty does the patient have: Moving from lying on back to sitting on the side of the bed? 4 How much difficulty does the patient have: Moving to and from a bed to a chair including wheelchair? 4 How much help does the patient currently need: Walk in hospital room? 4 How much help from another person does the patient currently need: Climbing 3-5 steps with a railing? 4 Total 6 Click Score (range 6-24) 24 Safe Environment End of Therapy Session Safe Environment End of Therapy Session Patient left sitting at edge of bed;Call light within reach;Overbed table within reach Assessment Problem List Comments No problem present requiring skilled PT in acute settting. Barriers to Discharge None Plan Plan Discharge;If this is the last note, consider this the discharge summary Recommendation/Plan PT Recommendation/Plan Home with family;Home with intermittent assist;No further PT indicated PT Recommendation/Plan Comments Discussed PT POC w/ pt. Pt agreeable. PT Frequency during current admission One time visit (Discharge from this service) PT Equipment Recommended None PT - OK to Discharge Yes PT Evaluation Complete Yes Time Calculation Start Time 0821 Stop Time 0835 Time Calculation (min) 14 min Multi-Disciplinary Problems (from Physical Therapy) Active Problems Not on file Cosigned by Meka Hu, PT at 12/03/2023 1:30 PM CDT * Michael Huizar MD - 12/03/2023 7:21 AM CDT Medicine Daily Progress Note Patient: Darius Russo : 1960 (63 y.o.) Date of Admission: 11/25/2023 Date of Service: 12/03/23 SUBJECTIVE Interval Events: - NAEO. AF, BP 120-60s, satting well on RA. - Appreciate CRS recs: recommend possible total vs partial colectomy given question re UC vs CD. - Pt tearful regarding possibility of TAC, feeling overwhelmed by multiple teams. - Folic acid/B12 wnl - Path cytology - negative for infection/malignancy - ID signoff - Started on HDSSI for mildly elevated glucose - RFP spaced to 48h OBJECTIVE Vitals Most Recent: Vitals: 12/03/23 0835 BP: 129/60 Pulse: 98 Resp: 18 Temp: SpO2: 99% 24 Hour Min/Max: Temp Min: 36.4 ??C (97.5 ??F) Max: 37.1 ??C (98.8 ??F) Pulse Min: 91 Max: 109 BP Min: 120/74 Max: 134/54 Resp Min: 18 Max: 18 SpO2 Min: 97 % Max: 99 % Intake/Output Intake/Output Summary (Last 24 hours) at 12/03/2023 1158 Last data filed at 12/03/2023 0930 Gross per 24 hour Intake 1105 ml Output 850 ml Net 255 ml Current Medications Scheduled Meds: Scheduled Medications Medication Dose Route Frequency ciprofloxacin (CIPRO) tablet 500 mg 500 mg oral BID - special enoxaparin (LOVENOX) syringe 40 mg 40 mg subcutaneous Daily-2100 folic acid (FOLVITE) tablet 1 mg 1 mg oral Daily insulin lispro (HumaLOG, ADMELOG) 100 unit/mL injection 0-4 Units 0-4 Units subcutaneous Nightly insulin lispro (HumaLOG, ADMELOG) 100 unit/mL injection 0-5 Units 0-5 Units subcutaneous TID with meals losartan (COZAAR) tablet 25 mg 25 mg oral Daily metroNIDAZOLE (FLAGYL) tablet 500 mg 500 mg oral BID multivitamin with folic acid 400 mcg tablet 1 tablet 1 tablet oral Daily pantoprazole DR (PROTONIX) extended release tablet 40 mg 40 mg oral Daily pyridoxine (VITAMIN B6) tablet 100 mg 100 mg oral Daily thiamine (VITAMIN B1) tablet 100 mg 100 mg oral Daily Continuous Meds: Current Facility-Administered Medications Medication Dose Route Frequency Last Admin PRN Meds: PRN Medications Medication Dose Route Frequency Last Admin acetaminophen (TYLENOL) tablet 650 mg 650 mg oral Q4H PRN 650 mg at 12/01/23 1751 benzonatate (TESSALON) capsule 100 mg 100 mg oral TID PRN 100 mg at 12/03/23 0919 Carrier Fluids for Secondary Infusion - 0.9% Sodium Chloride 30 mL intravenous PRN dextrose gel in packet 15 g 15 g oral Q15 Min PRN Or dextrose (D10W) 10% bolus 250 mL 250 mL intravenous Q15 Min PRN glucagon injection 1 mg 1 mg intramuscular Q30 Min PRN ondansetron (ZOFRAN) injection 4 mg 4 mg intravenous Q4H PRN phenoL (CHLORASEPTIC) 1.4 % oral spray 1 spray 1 spray mouth/throat Q4H PRN 1 spray at 11/29/232057 polyethylene glycol (MIRALAX) packet 17 g 17 g oral Daily PRN ramelteon (ROZEREM) tablet 8 mg 8 mg oral Nightly PRN sodium chloride 0.9% flush 0.5-20 mL 0.5-20 mL intra-catheter PRN Physical Exam General: NAD, ill-appearing but clinically stable HEENT: NCAT. PERRL, EOMI, anicteric. MMM. Hearing intact to interview. Neck ROM intact to interview. Supple. Lungs: Unlabored on RA. No dyspnea with conversation. Clear to auscultation in bilateral anterior lung randall without wheezes. Cardiovascular: RRR, normal S1 and S2, no murmurs/rubs/gallops. 2+ radial pulses. GI: Soft, mildly distended with scattered TTP without rebound or guarding. Skin: No concerning rashes, lesions, or bruises on exposed skin. Extremities: No edema or cyanosis in BLE. WWP. Neurologic: Alert and oriented to interview, person, place, time, setting, and recent and remote personal history. Spontaneously moves all extremities, face symmetric to activation. No reported or observed focal motor or sensory neurologic deficits to gross exam. Psychiatric: Low mood, tearful Laboratory Results Recent Results (from the past 24 hour(s)) POCT glucose Collection Time: 12/02/23 12:07 PM Result Value Ref Range Glucose, POC 196 70 - 199 mg/dL POCT glucose Collection Time: 12/02/23 1:15 PM Result Value Ref Range Glucose, POC 133 70 - 199 mg/dL POCT glucose Collection Time: 12/02/23 4:47 PM Result Value Ref Range Glucose, POC 174 70 - 199 mg/dL POCT glucose Collection Time: 12/02/23 8:47 PM Result Value Ref Range Glucose, POC 216 (H) 70 - 199 mg/dL Glucose comment 1 Glu2: RN/ Notified CBC with auto differential Collection Time: 12/03/23 12:09 AM Result Value Ref Range WBC 12.5 (H) 3.8 - 9.9 K/cumm Hgb 8.3 (L) 11.9 - 15.5 g/dL Hct 28.2 (L) 35.6 - 45.5 % Plt 481 (H) 150 - 400 K/cumm MPV 9.3 9.1 - 12.3 fL RBC 3.30 (L) 3.90 - 5.20 M/cumm MCV 85.5 81.3 - 96.4 fL MCH 25.2 (L) 27.1 - 33.3 pg MCHC 29.4 (L) 32.3 - 35.7 g/dL RDW CV 18.4 (H) 11.1 - 14.9 % RDW SD 57.8 (H) 35.7 - 48.1 fL NRBC abs 0.00 0.00 - 0.01 K/cumm Renal function panel Collection Time: 12/03/23 12:09 AM Result Value Ref Range Sodium 134 (L) 135 - 145 mmol/L Potassium, pl 4.3 3.3 - 4.9 mmol/L Chloride 100 97 - 110 mmol/L CO2 26 22 - 32 mmol/L Anion gap 8 2 - 15 mmol/L BUN 16 6 - 25 mg/dL Creatinine 0.77 0.60 - 1.10 mg/dL Glucose 140 70 - 199 mg/dL Calcium 8.6 8.5 - 10.3 mg/dL Phosphorus, pl 3.3 2.3 - 4.5 mg/dL Albumin 2.7 (L) 3.5 - 5.0 g/dL Vitamin B12 Collection Time: 12/03/23 12:09 AM Result Value Ref Range Vitamin B12 1,114 230 - 1,250 pg/mL Folate Collection Time: 12/03/23 12:09 AM Result Value Ref Range Folic acid 18.0 >=5.0 ng/mL Differential, auto Collection Time: 12/03/23 12:09 AM Result Value Ref Range Neutrophil abs 8.8 (H) 1.5 - 6.5 K/cumm Imm gran abs 0.1 0.0 - 0.1 K/cumm Lymphocyte abs 2.5 0.8 - 3.3 K/cumm Monocyte abs 0.9 (H) 0.2 - 0.8 K/cumm Eosinophil abs 0.2 0.0 - 0.5 K/cumm Basophil abs 0.1 0.0 - 0.1 K/cumm Neutrophil pct 70.1 % Imm gran pct 0.6 % Lymphocyte pct 20.1 % Monocyte pct 7.2 % Eosinophil pct 1.4 % Basophil pct 0.6 % eGFR Collection Time: 12/03/23 12:09 AM Result Value Ref Range eGFR 86 >=60 mL/min/1.73 m2 POCT glucose Collection Time: 12/03/23 8:48 AM Result Value Ref Range Glucose, POC 145 70 - 199 mg/dL POCT glucose Collection Time: 12/03/23 11:28 AM Result Value Ref Range Glucose, POC 244 (H) 70 - 199 mg/dL Imaging Results X-ray chest 1 view (Portable) Narrative: EXAMINATION: 1 view chest radiograph Impression: The current study is compared with the [...] it. Electronically signed by: Clemencia Grayson M.D. Path Results: Sections show alveolated lung parenchyma with widen septae, increased interstitial inflammatory infiltration, type II pneumonocyte hyperplasia, increased alveolar foamy macrophages and rare microthrombi. Bronchiolitis with predominant chronic inflammation is also noted. We do not see definitive evidence of vasculitis/endotheliolitis, viral cytopathic changes, granulomatous inflammation, necrosis or malignancy. Special stains for GMS, AFB, and trichrome were performed with proper controls. GMS and AFB stains show no fungal organisms or acid-fast bacteria. The trichrome stain shows no significant increase of interstitial fibrosis. Overall the findings are those of organizing lung injury, with the differential diagnosis includinginfectious etiology, autoimmune, or drug-induced. Correlation with imaging findings and microbiology study is strongly recommended. ASSESSMENT & PLAN Darius Russo is a 63 y.o. woman with relevant PMH of IBD (2022 UC, now c/f Crohn's), adnexal mass, HTN, T2DM directly admitted for expedited therapy for IBD iso progressive weight loss, found to have pulmonary lesions concerning for infectious vs malignancy. #IBD c/b recurrent diverticulitis, contained colonic perforation #splenic/liver abscesses, ?seeding from microperforation Patient was diagnosed with ulcerative colitis in 2022, since which time she has been prescribed rectal mesalamine. She has had recurrent admissions for sigmoid diverticulitis which have been managed medically; most recently, patient was started on a 4wk course of ciprofloxacin/metronidazole (11/05). 11/12 colonoscopy with cryptitis and inflammation now c/f colonic Crohn's, MRI dated same with sigmoid diverticulitis, contained perforation, rectal/sigmoid inflammation. Patient's symptoms include daily diarrhea (now improving) and profound weight loss as detailed elsewhere. She was admitted for remicade vs operative management, course c/b likely infectious process (lungs, liver, spleen) preventi ng remicade initiation. GI recs to consult CRS and secondary school registrar for operative intervention in setting of pending infectious workup. Per CRS, plan for TAC+cyst resection on 12/16, can be discharged in meantime. - GI c/s - ID c/s, recs appreciated: abx, work-up as below - CRS c/s, rec TAC + cyst resection 12/16 - Business Office Representative c/s - ciprofloxacin 500mg BID, metronidazole 500mg BID (11/05-) per ID #Cavitary lung lesions s/p bronch with BAL/biopsy Patient with symptoms including cough [place] admission CT CAP11/26/23 with cavitary lung lesions and associated lymphadenopathy, not seen on CT ~1 month ago; patient also with liver/spleen and adnexal masses as below. No clear risk factors for immunosuppresionsave acute severe malnutrition. Differential is broad and includes infectious, autoimmune, and malignant processes. Diagnostic work-up in addition to imaging includes: BAL 11/27 with biopsy (negative). Blood cx (mold, fungal, bacteria) NGTD; CrAg, Blasto EIA, DFA, BAL AFB, galactomannan negative. Bronch path results suggest organizing lung injury, no evidence of infection, cytology is negative for infection/malignancy. Will need recommendations from ID/pulm re follow-up management/observation of lung lesions. - ID c/s, signed off with recs to continue abx through surgery. - Pulm c/s, recs/intervention (BAL 11/27) appreciated: disfavor malignancy - Abx as above #FTT/severe malnutrition #Acute weight loss 65lb weight loss over 4mo; suspect related to multifocal process affecting lung/liver/spleen or mass effect from her adnexal mass. Patient endorses poor appetite, early satiety. Repeat folate/b12 labs after replenishment wnl - Nutrition c/s, recs appreciated - s/p HD thiamine, thiamine 100mg PO daily - folic acid 1mg daily, MVI daily - pyridoxine B6 100mg PO daily #Liver/spleen abscesses: Reproduced on 11/12 MRI, too small to drain and stable from prior imaging.Improved on subsequent CT CAP. Liver also with diffuse iron deposition. Abx as above. #Adnexal mass: 11/12 MRI, 16.4 x 11.6 x 14.2cm multiseptate cystic R ovary mass. Business Office Representative onc c/s, suspect benign, per pulm, concern for possible malignancy in lungs, plan to reach out to secondary school registrar re issues. #Hyponatremia: 11/29 AM cortisol 20.1; 11/29 TSH 2.09. Suspect SIADH 2/2 lung process + hypovolemicgiven serum osm 281, urine osm 655, urine sodium 74. Improved with nutrition to stabilize at low normal. #Hypocalcemia: Intermittent throughout admission. Possibly related to poor dietary intake. 11/29 25OH-VitD 39 from 10/26. #HTN: Continue home losartan 25mg daily #T2DM: A1c 5.7%. switched from SSI to HDSSI for mild hyperglycemia Code Status: Full Code Disposition: pending clinical course Best contact: Primary Emergency Contact: JEAN CLAUDE RUSSO Diet: Adult Diet Regular, Restricted; Consistent Carbohydrate VTE Prophylaxis: enoxaparin 40mg SQ qhs PT: PT Recommendation/Plan: Home with family, Home with intermittent assist, No further PT indicated OT:OT Recommendation: Home with family, Home with intermittent assist, No further OT indicated Michael Huizar MD Resident Physician, Internal Medicine Cosigned by Álvaro Radford MD at 12/04/2023 9:13 AM CDT Associated attestation - Álvaro Radford MD - 12/04/2023 9:13 AM CDT Attending Documentation I have seen and examined the patient on 12/03/2023. I agree with the findings and plan of care as documented in the resident's/fellow's note. and as discussed with the resident/fellow. Frustrated by lack of diagnostic clarity and severity of some of the treatment options such as surgery. Provided support and clarification as able. Pulm recommending PET to aid is assessment of lung findings, for which infectious and tissue testing has not resulted in specific diagnosis. Otherwise, planning for CRS/TEAR DOWN MATCHER surgery in 2 weeks. Supplementary Attestation Today, I am treating the patient for lung infection, likely penetrating Crohns which is in severe exacerbation, progression, or experiencing treatment side effects as evidenced by nned for antimicrobials, consideration of biologic/surgery, as described in the note. Reviewed records from the following unique sources (external institutions or providers from different services): GI notes, Pulm notes, CRS Notes, ID notes. Discussed management of lung infection with ID, Pulm, IBD with GI The patient is being intensively monitored for drug toxicity from abx by checking CBC, CMP, QTc. Álvaro Radford MD * Heidi Ybarranaina Asher, OT - 12/02/2023 10:55 AM CDT Occupational Therapy Occupational Therapy Evaluation Note NOTE: This is a summary note of the brown components of the evaluation session. For full details, review chart for all flowsheets documented on by this occupational therapy clinician on this date. Vital signs are documented in vital signs flowsheet. For questions, please review the treatment team and contact the occupational therapist currently assigned to this patient. If an occupational therapist is not assigned to this patient, please call [phone]. 12/02/23 1056 General Chart Reviewed Yes Session Type Evaluation (initial dc) OT Received On 12/02/23 Safe Environment Arm band checked;Patient found in supine;Session completed bedside Subjective Agreeable to Therapy Subjective Comment I just want to sleep Family/Caregiver Present Yes Occupational Therapy-Patient Goal to go home Precautions Precautions Fall risk Home Living Type of Home House Home Layout One level Home Access Stairs to enter with rails Entrance Stairs-Rails Both Entrance Stairs-Number of Steps 6 Bathroom Shower/Tub Walk-in shower with threshold Bathroom Toilet Raised Home Mobility Equipment-Available 4-Wheeled walker;Single point cane Home Mobility Equipment-Currently Using None Home ADL Equipment-Available None Home ADL Equipment-Currently Using None Prior Function Level of Scott Independent with ADLs;Independent functional transfers;Independent with ambulation;Independent with homemaking with ambulation Lives With Spouse Receives Help From Spouse/Significant other (FT assist) Driving Yes Mode of Transportation Driven by self 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 [employer] Fall within the last 6 months Yes Fall within the last 6 months comment One fall, reports missing the chair and sliding to the floor ADL ADLS (WDL) X Grooming Grooming: Where assessed Standing at sink Grooming: Level of assistance Independent LE Dressing LE Dressing: Where assessed Sitting;Standing LE Dressing: Level of assistance Independent Room Mobility Room Mobility: Where assessed to/from bathroom Health Management: Equipment (none) Room Mobility: Level of Assistance Independent Toilet Transfers Toilet Transfer From Bed Toilet Transfer Type To and from Toilet Transfer to Standard toilet Toilet Transfer Technique Ambulating Toilet Transfer: Equipment No device Toilet Transfers Independent Pain Assessment Pain Assessment No/denies pain Cognition Overall Cognitive Status WFL Arousal/Alertness Alert;Appropriate responses to stimuli Attention Span Appears intact;Age appropriate Memory Appears intact Current communication Appears Intact Orientation Oriented X4 (person, place, time, situation) Following Commands Follows all commands and directions without difficulty Safety Judgment Good awareness of safety precautions Awareness of Errors Good awareness of errors made Insight Fully aware of deficits Problem Solving Able to problem solve independently Compliance/Behavior Easy to engage Perseveration Not present Cognitive Tests Cognitive Tests Yes Short Blessed Test What year is it now? 0 What month is it now? 0 Repeat this name and address after me John Cramer [address] [place] [address] Without looking at the clock, tell me what time it is 0 Count aloud backwards from 20-1 0 Say the months of the year backwards in reverse order 0 Repeat the name and address I asked you to remember 0 Short Blessed Total Score 0 Short Blessed Comments WFL Hand Preference Hand Preference Right Balance Tests Balance Tests Yes Tinetti Sitting Balance 1 Arises 2 Attempts to Arise 2 Immediate Standing Balance (First 5 Seconds) 2 Standing Balance 2 Nudged 2 Eyes Closed 1 Turned 360 Degrees: Steadiness 1 Turned 360 Degrees: Continuity of Steps 1 Sitting Down 2 Balance Score 16 Balance Balance Yes Static Sitting Balance Static Sitting-Balance Support No upper extremity supported;Feet supported Static Sitting-Sitting Surface Bed Static Sitting-Level of Assistance Independent Dynamic Sitting Balance Dynamic Sitting-Balance Support Unilateral upper extremity supported;Feet supported Dynamic Sitting-Balance Forward lean Dynamic Sitting-Sitting Surface Bed Dynamic Sitting-Level of Assistance Independent Static Standing Balance Static Standing-Balance Support No upper extremity supported Static Standing-Standing Surface Floor Static Standing-Level of Assistance Independent Dynamic Standing Balance Dynamic Standing-Balance Support No upper extremity supported Dynamic Standing-Balance Forward lean Dynamic Standing-Standing Surface Floor Dynamic Standing-Level of Assistance Independent Bed Mobility Bed Mobility Yes Bed Mobility 1 Bed Mobility From 1 Supine Bed Mobility Type 1 To Bed Mobility to 1 Edge of bed Level of Assistance 1 Modified Independent Bed Mobility Comments 1 elev HOB Transfers Transfer Yes Transfer 1 Transfer From 1 Sit Transfer Type 1 To and from Transfer to 1 Stand Technique 1 Sit to stand;Stand to sit Transfer Device 1 No device Transfer Level of Assistance 1 Independent RUE Assessment RUE Assessment WFL LUE Assessment LUE Assessment WF Other Comments Comments Pt demonstrates good safety and indep in functional mob and ADL's at this time. No concernfor d/c home once medically stable. No further acute OT needs identified, will d/c OT Daily Activity - 6 Clicks Putting on and taking off regular lower body clothing 4 Bathing 4 Toileting 4 Putting on and taking off upper body clothing 4 Personal Grooming 4 Eating Meals 4 Total Score (range 6-24) 24 Score Interpretation 57.54 Safe Environment End of Therapy Session Safe Environment End of Therapy Session Patient left sitting at edge of bed;RN notified;Call light within reach;Overbed table within reach Assessment Prognosis Good Problem List (none) Barriers to Discharge None Plan Plan Discharge;If this is the last note, consider this the discharge summary Recommendation/Plan OT Recommendation Home with family;Home with intermittent assist;No further OT indicated Patient at high risk for (none) OT Frequency during current admission One-time visit (Discharge from this service) OT Equipment Recommended None OT - OK to Discharge Yes OT Evaluation Complete Yes Time Calculation Start Time 2971 Stop Time 1115 Time Calculation (min) 20 min Multi-Disciplinary Problems (from Occupational Therapy) Active Problems Not on file * Michael Huizar MD - 12/02/2023 7:44 AM CDT Medicine Daily Progress Note Patient: Darius Russo : 1960 (63 y.o.) Date of Admission: 11/25/2023 Date of Service: 12/02/23 SUBJECTIVE Interval Events: - NAEO. AF, BP 130-150/70s, satting well on RA. - Appreciate GI recs: c/s CRS & OBGYN re surgery - Taken off of droplet precautions - Patient notified of plan, had some concerns about colostomy but educated on potential clinical course post surgery. - Folic acid/B12 tests to check for malnutrition - Path results - organizing lung injury, no evidence of infection. Per pulm, possible sampling error. OBJECTIVE Vitals Most Recent: Vitals: 12/02/23 0520 BP: 149/71 Pulse: 93 Resp: Temp: 36.8 ??C (98.2 ??F) SpO2: 97% 24 Hour Min/Max: Temp Min: 36.7 ??C (98 ??F) Max: 36.8 ??C (98.3 ??F) Pulse Min: 88 Max: 102 BP Min: 126/63 Max: 149/71 Resp Min: 18 Max: 18 SpO2 Min: 97 % Max: 98 % Intake/Output Intake/Output Summary (Last 24 hours) at 12/02/2023 0744 Last data filed at 12/02/2023 0720 Gross per 24 hour Intake 780 ml Output 1500 ml Net -720 ml Current Medications Scheduled Meds: Scheduled Medications Medication Dose Route Frequency ciprofloxacin (CIPRO) tablet 500 mg 500 mg oral BID - special enoxaparin (LOVENOX) syringe 40 mg 40 mg subcutaneous Daily-2100 folic acid (FOLVITE) tablet 1 mg 1 mg oral Daily insulin lispro (HumaLOG, ADMELOG) 100 unit/mL injection 0-4 Units 0-4 Units subcutaneous Nightly insulin lispro (HumaLOG, ADMELOG) 100 unit/mL injection 0-5 Units 0-5 Units subcutaneous TID with meals losartan (COZAAR) tablet 25 mg 25 mg oral Daily metroNIDAZOLE (FLAGYL) tablet 500 mg 500 mg oral BID multivitamin with folic acid 400 mcg tablet 1 tablet 1 tablet oral Daily pantoprazole DR (PROTONIX) extended release tablet 40 mg 40 mg oral Daily pyridoxine (VITAMIN B6) tablet 100 mg 100 mg oral Daily thiamine (VITAMIN B1) tablet 100 mg 100 mg oral Daily Continuous Meds: Current Facility-Administered Medications Medication Dose Route Frequency Last Admin PRN Meds: PRN Medications Medication Dose Route Frequency Last Admin acetaminophen (TYLENOL) tablet 650 mg 650 mg oral Q4H PRN 650 mg at 12/01/23 1751 al & mag hydroxide umfymacbrde-gatyqprpvbjcouf-auuhukqdl-nystatin (MAGIC MOUTHWASH) oral suspension 1-1-1-1 10 mL 10 mL swish & swallow Q4H PRN benzonatate (TESSALON) capsule 100 mg 100 mg oral TID PRN 100 mg at 12/02/23 0529 Carrier Fluids for Secondary Infusion - 0.9% Sodium Chloride 30 mL intravenous PRN dextrose gel in packet 15 g 15 g oral Q15 Min PRN Or dextrose (D10W) 10% bolus 250 mL 250 mL intravenous Q15 Min PRN glucagon injection 1 mg 1 mg intramuscular Q30 Min PRN loperamide (IMODIUM) capsule 2 mg 2 mg oral QID PRN ondansetron (ZOFRAN) injection 4 mg 4 mg intravenous Q4H PRN phenoL (CHLORASEPTIC) 1.4 % oral spray 1 spray 1 spray mouth/throat Q4H PRN 1 spray at 11/29/232057 polyethylene glycol (MIRALAX) packet 17 g 17 g oral Daily PRN ramelteon (ROZEREM) tablet 8 mg 8 mg oral Nightly PRN sodium chloride 0.9% flush 0.5-20 mL 0.5-20 mL intra-catheter PRN Physical Exam General: NAD, ill-appearing but clinically stable HEENT: NCAT. PERRL, EOMI, anicteric. MMM. Hearing intact to interview. Neck ROM intact to interview. Supple. Lungs: Unlabored on RA. No dyspnea with conversation. Clear to auscultation in bilateral anterior lung randall without wheezes. Cardiovascular: RRR, normal S1 and S2, no murmurs/rubs/gallops. 2+ radial pulses. GI: Soft, mildly distended with scattered TTP without rebound or guarding. Skin: No concerning rashes, lesions, or bruises on exposed skin. Extremities: No edema or cyanosis in BLE. WWP. Neurologic: Alert and oriented to interview, person, place, time, setting, and recent and remote personal history. Spontaneously moves all extremities, face symmetric to activation. No reported or observed focal motor or sensory neurologic deficits to gross exam. Psychiatric: Neutral to low mood with mood-syntonic affect. Does not appear to be responding to internal stimuli. Laboratory Results Recent Results (from the past 24 hour(s)) POCT glucose Collection Time: 12/01/23 8:27 AM Result Value Ref Range Glucose, POC 124 70 - 199 mg/dL POCT glucose Collection Time: 12/01/23 12:02 PM Result Value Ref Range Glucose, POC 200 (H) 70 - 199 mg/dL POCT glucose Collection Time: 12/01/23 4:04 PM Result Value Ref Range Glucose, POC 152 70 - 199 mg/dL POCT glucose Collection Time: 12/01/23 8:26 PM Result Value Ref Range Glucose, POC 213 (H) 70 - 199 mg/dL CBC with auto differential Collection Time: 12/01/23 9:46 PM Result Value Ref Range WBC 13.4 (H) 3.8 - 9.9 K/cumm Hgb 8.4 (L) 11.9 - 15.5 g/dL Hct 27.3 (L) 35.6 - 45.5 % Plt 519 (H) 150 - 400 K/cumm MPV 8.6 (L) 9.1 - 12.3 fL RBC 3.26 (L) 3.90 - 5.20 M/cumm MCV 83.7 81.3 - 96.4 fL MCH 25.8 (L) 27.1 - 33.3 pg MCHC 30.8 (L) 32.3 - 35.7 g/dL RDW CV 18.2 (H) 11.1 - 14.9 % RDW SD 55.2 (H) 35.7 - 48.1 fL NRBC abs 0.00 0.00 - 0.01 K/cumm Renal function panel Collection Time: 12/01/23 9:46 PM Result Value Ref Range Sodium 134 (L) 135 - 145 mmol/L Potassium, pl 4.3 3.3 - 4.9 mmol/L Chloride 100 97 - 110 mmol/L CO2 25 22 - 32 mmol/L Anion gap 9 2 - 15 mmol/L BUN 13 6 - 25 mg/dL Creatinine 0.78 0.60 - 1.10 mg/dL Glucose 168 70 - 199 mg/dL Calcium 8.5 8.5 - 10.3 mg/dL Phosphorus, pl 3.0 2.3 - 4.5 mg/dL Albumin 2.6 (L) 3.5 - 5.0 g/dL Differential, auto Collection Time: 12/01/23 9:46 PM Result Value Ref Range Neutrophil abs 10.2 (H) 1.5 - 6.5 K/cumm Imm gran abs 0.1 0.0 - 0.1 K/cumm Lymphocyte abs 1.9 0.8 - 3.3 K/cumm Monocyte abs 0.9 (H) 0.2 - 0.8 K/cumm Eosinophil abs 0.2 0.0 - 0.5 K/cumm Basophil abs 0.1 0.0 - 0.1 K/cumm Neutrophil pct 76.4 % Imm gran pct 0.7 % Lymphocyte pct 14.2 % Monocyte pct 6.9 % Eosinophil pct 1.4 % Basophil pct 0.4 % eGFR Collection Time: 12/01/23 9:46 PM Result Value Ref Range eGFR 84 >=60 mL/min/1.73 m2 Imaging Results X-ray chest 1 view (Portable) Narrative: EXAMINATION: 1 view chest radiograph Impression: The current study is compared with the [...] it. Electronically signed by: Clemencia Grayson M.D. Path Results: Sections show alveolated lung parenchyma with widen septae, increased interstitial inflammatory infiltration, type II pneumonocyte hyperplasia, increased alveolar foamy macrophages and rare microthrombi. Bronchiolitis with predominant chronic inflammation is also noted. We do not see definitive evidence of vasculitis/endotheliolitis, viral cytopathic changes, granulomatous inflammation, necrosis or malignancy. Special stains for GMS, AFB, and trichrome were performed with proper controls. GMS and AFB stains show no fungal organisms or acid-fast bacteria. The trichrome stain shows no significant increase of interstitial fibrosis. Overall the findings are those of organizing lung injury, with the differential diagnosis includinginfectious etiology, autoimmune, or drug-induced. Correlation with imaging findings and microbiology study is strongly recommended. ASSESSMENT & PLAN Darius Russo is a 63 y.o. woman with relevant PMH of IBD (2022 UC, now c/f Crohn's), adnexal mass, HTN, T2DM directly admitted for expedited therapy for IBD iso progressive weight loss. #IBD c/b recurrent diverticulitis, contained colonic perforation #splenic/liver abscesses, ?seeding from microperforation Patient was diagnosed with ulcerative colitis in 2022, since which time she has been prescribed rectal mesalamine. She has had recurrent admissions for sigmoid diverticulitis which have been managed medically; most recently, patient was started on a 4wk course of ciprofloxacin/metronidazole (11/05). 11/12 colonoscopy with cryptitis and inflammation now c/f colonic Crohn's, MRI dated same with sigmoid diverticulitis, contained perforation, rectal/sigmoid inflammation. Patient's symptoms include daily diarrhea (now improving) and profound weight loss as detailed elsewhere. She was admitted for remicade vs operative management, course c/b likely infectious process (lungs, liver, spleen) preventi ng remicade initiation. GI recs to consult CRS and secondary school registrar for operative intervention in setting of pending infectious workup. - GI c/s, recs appreciated: c/s CRS and Business Office Representative onc for operative intervention - ID c/s, recs appreciated: abx, work-up as below - ciprofloxacin 500mg BID, metronidazole 500mg BID (11/05-) per ID #Cavitary lung lesions s/p bronch with BAL/biopsy Patient with symptoms including cough [place] admission CT CAP11/26/23 with cavitary lung lesions and associated lymphadenopathy, not seen on CT ~1 month ago; patient also with liver/spleen and adnexal masses as below. No clear risk factors for immunosuppresionsave acute severe malnutrition. Differential is broad and includes infectious, autoimmune, and malignant processes. Diagnostic work-up in addition to imaging includes: BAL 11/27 with biopsy (pending). Blood cx (mold, fungal, bacteria) NGTD; CrAg, Blasto EIA, DFA, BAL AFB negative. - ID c/s, recs appreciated: f/u AFB culture, fungal cultures - Pulm c/s, recs/intervention (BAL 11/27) appreciated: disfavor malignancy - f/u [id number], collecting 11/30 - negative galactomannan 12/01 - bronch path results - organizing lung injury, no evidence of infection. Per pulm, possible sampling error. - Abx as above #FTT/severe malnutrition #Acute weight loss 65lb weight loss over 4mo; suspect related to multifocal process affecting lung/liver/spleen or mass effect from her adnexal mass. Patient endorses poor appetite, early satiety. - Nutrition c/s, recs appreciated - s/p HD thiamine, thiamine 100mg PO daily - folic acid 1mg daily, MVI daily - pyridoxine B6 100mg PO daily - send B12, folate labs #Liver/spleen abscesses: Reproduced on 11/12 MRI, too small to drain and stable from prior imaging.Improved on subsequent CT CAP. Liver also with diffuse iron deposition. Abx as above. #Adnexal mass: 11/12 MRI, 16.4 x 11.6 x 14.2cm multiseptate cystic R ovary mass. Business Office Representative onc c/s, suspect benign. Would simultaneously remove if pursuing sigmoid colectomy. #Hyponatremia: 11/29 AM cortisol 20.1; 11/29 TSH 2.09. Suspect SIADH 2/2 lung process + hypovolemicgiven serum osm 281, urine osm 655, urine sodium 74. #Hypocalcemia: Intermittent throughout admission. Possibly related to poor dietary intake. 11/29 25OH-VitD 39 from 10/26. #HTN: Continue home losartan 25mg daily #T2DM: A1c 5.7%. SSI Code Status: Full Code Disposition: pending clinical course Best contact: Primary Emergency Contact: JEAN CLAUDE RUSSO Diet: Adult Diet Regular, Restricted; Consistent Carbohydrate VTE Prophylaxis: enoxaparin 40mg SQ qhs PT: OT: Michael Huizar MD Resident Physician, Internal Medicine Cosigned by Álvaro Radford MD at 12/02/2023 3:19 PM CDT Associated attestation - Álvaro Radford MD - 12/02/2023 3:19 PM CDT Attending Documentation I have seen and examined the patient on 12/02/23. I agree with the findings and plan of care as documented in the resident's/fellow's note. and as discussed with the resident/fellow. Noninfectious process identified from path. BAL samples neg, no orgs on path staining. PCR testing to be done on path. GI recommending surgical mgmt, services engaged. Patient and questions answered. Supplementary Attestation Today, I am treating the patient for lung infection, likely penetrating Crohns which is in severe exacerbation, progression, or experiencing treatment side effects as evidenced by nned for antimicrobials, consideration of biologic/surgery, as described in the note. Reviewed records from the following unique sources (external institutions or providers from different services): GI notes, Pulm notes, ID notes. Discussed management of lung infection with ID, Pulm, IBD with GI The patient is being intensively monitored for drug toxicity from abx by checking CBC, CMP, QTc. Álvaro Radford MD * María Graham MD PhD - 12/01/2023 2:13 PM CDT Medicine Daily Progress Note Patient: Darius Russo : 1960 (63 y.o.) Date of Admission: 11/25/2023 Date of Service: 12/01/23 SUBJECTIVE Interval Events: - NAEO. AF, HDS to HTN. SpO2 95-96% on RA. I/O incompletely charted. - Labs with resolution of hyponatremia (131>135). Work-up of hyponatremia and hypocalcemia largely negative, suspect SIADH and poor PO intake. Micro studies to date unrevealing. Repeated HFP with normalization of LFTs from 11/04 (AST 132>16, ALT 46>6, ALP 140>78) consistent with improvement in liver masses on imaging - Reached out to [facility] about AFB negative BAL; they will not lift precautions until surgical pathology results demonstrating no necrotizing granulomas. Asked them to document reasoning given that notall patients with BAL receive simultaneous lung biopsy and biopsy may result nondiagnostic - Patient doing well, understandably frustrated about continued diagnostic uncertainty - Discussed patient with ID, GI; appreciate their recs and Pulm's OBJECTIVE Vitals Most Recent: Vitals: 12/01/23 0805 BP: 131/67 Pulse: 90 Resp: 18 Temp: 36.7 ??C (98 ??F) SpO2: 97% 24 Hour Min/Max: Temp Min: 36.7 ??C (98 ??F) Max: 36.8 ??C (98.2 ??F) Pulse Min: 89 Max: 101 BP Min: 131/67 Max: 141/66 Resp Min: 18 Max: 20 SpO2 Min: 95 % Max: 97 % Intake/Output Intake/Output Summary (Last 24 hours) at 12/01/2023 1413 Last data filed at 12/01/2023 1210 Gross per 24 hour Intake 240 ml Output 200 ml Net 40 ml Current Medications Scheduled Meds: Scheduled Medications Medication Dose Route Frequency ciprofloxacin (CIPRO) tablet 500 mg 500 mg oral BID - special enoxaparin (LOVENOX) syringe 40 mg 40 mg subcutaneous Daily-2100 folic acid (FOLVITE) tablet 1 mg 1 mg oral Daily insulin lispro (HumaLOG, ADMELOG) 100 unit/mL injection 0-4 Units 0-4 Units subcutaneous Nightly insulin lispro (HumaLOG, ADMELOG) 100 unit/mL injection 0-5 Units 0-5 Units subcutaneous TID with meals losartan (COZAAR) tablet 25 mg 25 mg oral Daily metroNIDAZOLE (FLAGYL) tablet 500 mg 500 mg oral BID multivitamin 10 mL in sodium chloride 0.9% 500 mL IVPB intravenous Daily pantoprazole DR (PROTONIX) extended release tablet 40 mg 40 mg oral Daily pyridoxine (VITAMIN B6) tablet 100 mg 100 mg oral Daily thiamine (VITAMIN B1) tablet 100 mg 100 mg oral Daily Continuous Meds: Current Facility-Administered Medications Medication Dose Route Frequency Last Admin PRN Meds: PRN Medications Medication Dose Route Frequency Last Admin acetaminophen (TYLENOL) tablet 650 mg 650 mg oral Q4H PRN 650 mg at 12/01/23431 al & mag hydroxide ilynsvivaum-ejdxucvqoumsqyy-kygmyxuep-nystatin (MAGIC MOUTHWASH) oral suspension 1-1-1-1 10 mL 10 mL swish & swallow Q4H PRN benzonatate (TESSALON) capsule 100 mg 100 mg oral TID PRN 100 mg at 12/01/23431 Carrier Fluids for Secondary Infusion - 0.9% Sodium Chloride 30 mL intravenous PRN dextrose gel in packet 15 g 15 g oral Q15 Min PRN Or dextrose (D10W) 10% bolus 250 mL 250 mL intravenous Q15 Min PRN glucagon injection 1 mg 1 mg intramuscular Q30 Min PRN loperamide (IMODIUM) capsule 2 mg 2 mg oral QID PRN ondansetron (ZOFRAN) injection 4 mg 4 mg intravenous Q4H PRN phenoL (CHLORASEPTIC) 1.4 % oral spray 1 spray 1 spray mouth/throat Q4H PRN 1 spray at 11/29/232057 polyethylene glycol (MIRALAX) packet 17 g 17 g oral Daily PRN ramelteon (ROZEREM) tablet 8 mg 8 mg oral Nightly PRN sodium chloride 0.9% flush 0.5-20 mL 0.5-20 mL intra-catheter PRN Physical Exam General: NAD, ill-appearing but clinically stable HEENT: NCAT. PERRL, EOMI, anicteric. MMM. Hearing intact to interview. Neck ROM intact to interview. Supple. Lungs: Unlabored on RA. No dyspnea with conversation. Clear to auscultation in bilateral anterior lung randall without wheezes. Cardiovascular: RRR, normal S1 and S2, no murmurs/rubs/gallops. 2+ radial pulses. GI: Soft, mildly distended with scattered TTP without rebound or guarding. Skin: No concerning rashes, lesions, or bruises on exposed skin. Extremities: No edema or cyanosis in BLE. WWP. Neurologic: Alert and oriented to interview, person, place, time, setting, and recent and remote personal history. Spontaneously moves all extremities, face symmetric to activation. No reported or observed focal motor or sensory neurologic deficits to gross exam. Psychiatric: Neutral to low mood with mood-syntonic affect. Does not appear to be responding to internal stimuli. Laboratory Results Recent Results (from the past 24 hour(s)) Infection Prevention Angie auris PCR, surveillance Axilla/Groin Collection Time: 11/30/23 2:27 PM Specimen: Axilla/Groin Result Value Ref Range Angie auris DNA Not Detected Not Detected POCT glucose Collection Time: 11/30/23 5:26 PM Result Value Ref Range Glucose, POC 142 70 - 199 mg/dL POCT glucose Collection Time: 11/30/23 9:11 PM Result Value Ref Range Glucose, POC 147 70 - 199 mg/dL Basic metabolic panel Collection Time: 11/30/23 10:55 PM Result Value Ref Range Sodium 135 135 - 145 mmol/L Potassium, pl 3.9 3.3 - 4.9 mmol/L Chloride 100 97 - 110 mmol/L CO2 25 22 - 32 mmol/L Anion gap 10 2 - 15 mmol/L BUN 10 6 - 25 mg/dL Creatinine 0.74 0.60 - 1.10 mg/dL Glucose 141 70 - 199 mg/dL Calcium 8.4 (L) 8.5 - 10.3 mg/dL CBC with auto differential Collection Time: 11/30/23 10:55 PM Result Value Ref Range WBC 17.2 (H) 3.8 - 9.9 K/cumm Hgb 8.3 (L) 11.9 - 15.5 g/dL Hct 27.5 (L) 35.6 - 45.5 % Plt 382 150 - 400 K/cumm MPV 9.4 9.1 - 12.3 fL RBC 3.27 (L) 3.90 - 5.20 M/cumm MCV 84.1 81.3 - 96.4 fL MCH 25.4 (L) 27.1 - 33.3 pg MCHC 30.2 (L) 32.3 - 35.7 g/dL RDW CV 18.3 (H) 11.1 - 14.9 % RDW SD 56.6 (H) 35.7 - 48.1 fL NRBC abs 0.00 0.00 - 0.01 K/cumm Magnesium Collection Time: 11/30/23 10:55 PM Result Value Ref Range Magnesium 1.8 1.4 - 2.5 mg/dL Phosphorus Collection Time: 11/30/23 10:55 PM Result Value Ref Range Phosphorus, pl 3.0 2.3 - 4.5 mg/dL Differential, auto Collection Time: 11/30/23 10:55 PM Result Value Ref Range Neutrophil abs 13.8 (H) 1.5 - 6.5 K/cumm Imm gran abs 0.1 0.0 - 0.1 K/cumm Lymphocyte abs 2.0 0.8 - 3.3 K/cumm Monocyte abs 1.1 (H) 0.2 - 0.8 K/cumm Eosinophil abs 0.1 0.0 - 0.5 K/cumm Basophil abs 0.1 0.0 - 0.1 K/cumm Neutrophil pct 80.4 % Imm gran pct 0.6 % Lymphocyte pct 11.5 % Monocyte pct 6.4 % Eosinophil pct 0.8 % Basophil pct 0.3 % eGFR Collection Time: 11/30/23 10:55 PM Result Value Ref Range eGFR 90 >=60 mL/min/1.73 m2 Vitamin D 25 hydroxy Collection Time: 11/30/23 10:55 PM Result Value Ref Range Vitamin D 25-OH 39 30 - 80 ng/mL Thyroid Function [place] Collection Time: 11/30/23 10:55 PM Result Value Ref Range TSH 2.09 0.30 - 4.20 mcIUnit/mL Hepatic function panel Collection Time: 11/30/23 10:55 PM Result Value Ref Range Bilirubin, total 0.3 0.1 - 1.2 mg/dL Bilirubin, direct <0.2 0.1 - 0.3 mg/dL Protein, pl 7.1 6.5 - 8.5 g/dL Albumin 2.5 (L) 3.5 - 5.0 g/dL Alk phos 78 40 - 130 Units/L ALT 6 (L) 7 - 45 Units/L AST 16 10 - 45 Units/L POCT glucose Collection Time: 12/01/23 8:27 AM Result Value Ref Range Glucose, POC 124 70 - 199 mg/dL POCT glucose Collection Time: 12/01/23 12:02 PM Result Value Ref Range Glucose, POC 200 (H) 70 - 199 mg/dL Imaging Results X-ray chest 1 view (Portable) Narrative: EXAMINATION: 1 view chest radiograph Impression: The current study is compared with the [...] it. Electronically signed by: Clemencia Grayson M.D. ASSESSMENT & PLAN Darius Russo is a 63 y.o. woman with relevant PMH of IBD (2022 UC, now c/f Crohn's), adnexal mass, HTN, T2DM directly admitted for expedited therapy for IBD iso progressive weight loss. #IBD c/b recurrent diverticulitis, contained colonic perforation Patient was diagnosed with ulcerative colitis in 2022, since which time she has been prescribed rectal mesalamine. She has had recurrent admissions for sigmoid diverticulitis which have been managed medically; most recently, patient was started on a 4wk course of ciprofloxacin/metronidazole (11/05). 11/12 colonoscopy with cryptitis and inflammation now c/f colonic Crohn's, MRI dated same with sigmoid diverticulitis, contained perforation, rectal/sigmoid inflammation. Patient's symptoms include daily diarrhea (now improving) and profound weight loss as detailed elsewhere. She was admitted for remicade vs operative management, course c/b likely infectious process (lungs, liver, spleen) preventi ng remicade initiation. - GI c/s, recs appreciated: if infectious work-up with fungal/mycobacterial disease, recommend surgery; if infectious work-up unrevealing, will consider IFX later this admission though lung nodules remain concerning - ID c/s, recs appreciated: abx, work-up as below - ciprofloxacin 500mg BID, metronidazole 500mg BID (11/05-) #Cavitary lung lesions Patient with symptoms including cough [place]; admission CT CAP11/26/23 with cavitary lung lesions and associated lymphadenopathy; patient also with liver/spleen and adnexal masses as below. No clear risk factors for immunosuppresion save ?acute malnutrition. Differential is broad and includes infectious, autoimmune, and malignant processes. Diagnostic work-upin addition to imaging includes: BAL 11/27 with biopsy (pending). Blood cx (mold, fungal, bacteria)NGTD; CrAg, Blasto EIA, DFA, BAL AFB negative. - ID c/s, recs appreciated: f/u pending BAL studies, lung biopsy, galactomannan --- per IPE 11/30, need negative surgical pathology (no necrotizing granulomas) to lift TB precautions despite low level of suspicion for TB and negative BAL AFB. Will need to f/u with pathology about timeline - Pulm c/s, recs/intervention (BAL 11/27) appreciated: disfavor malignancy - f/u [id number], collecting 11/30 - Abx as above #FTT/malnutrition #Acute weight loss 65lb weight loss over 4mo; suspect related to multifocal process affecting lung/liver/spleen or mass effect from her adnexal mass. Patient endorses poor appetite, early satiety. - Nutrition c/s, recs appreciated - s/p HD thiamine, thiamine 100mg PO daily - folic acid 1mg daily, MVI daily - pyridoxine B6 100mg PO daily #Liver/spleen abscesses: Reproduced on 11/12 MRI, too small to drain and stable from prior imaging.Improved on subsequent CT CAP. Liver also with diffuse iron deposition. Abx as above. #Adnexal mass: 11/12 MRI, 16.4 x 11.6 x 14.2cm multiseptate cystic R ovary mass. Business Office Representative onc c/s, suspect benign. Would simultaneously remove if pursuing sigmoid colectomy. #Hyponatremia: 11/29 AM cortisol 20.1; 11/29 TSH 2.09. Suspect SIADH 2/2 lung process + hypovolemicgiven serum osm 281, urine osm 655, urine sodium 74. #Hypocalcemia: Intermittent throughout admission. Possibly related to poor dietary intake. 11/29 25OH-VitD 39 from 10/26. #HTN: Continue home losartan 25mg daily #T2DM: A1c 5.7%. SSI Code Status: Full Code Disposition: pending clinical course Best contact: Primary Emergency Contact: JEAN CLAUDE RUSSO Diet: Adult Diet Regular, Restricted; Consistent Carbohydrate VTE Prophylaxis: enoxaparin 40mg SQ qhs PT: OT: María Graham MD PhD Resident Physician, Internal Medicine Cosigned by Álvaro Radford MD at 12/02/2023 5:29 AM CDT Associated attestation - Álvaro Radford MD - 12/02/2023 5:29 AM CDT Attending Documentation I have seen and examined the patient on 12/01/2023. I agree with the findings and plan of care as documented in the resident's/fellow's note. and as discussed with the resident/fellow. Symptoms stable, still with some cough with occ scant blood. Eager for some diagnostic clarity. Is having some form to BM, estimates 3-4 daily at this point. Awaiting micro and path from bronchoscopyto determine next steps. Supplementary Attestation Today, I am treating the patient for lung infection, likely penetrating Crohns which is in severe exacerbation, progression, or experiencing treatment side effects as evidenced by nned for antimicrobials, consideration of biologic/surgery, as described in the note. Reviewed records from the following unique sources (external institutions or providers from different services): GI notes, Pulm notes, ID notes. Discussed management of lung infection with ID/IP. The patient is being intensively monitored for drug toxicity from abx by checking CBC, CMP, QTc. Álvaro Radford MD * Michael Huizar MD - 11/30/2023 7:05 AM CDT Progress Note Medicine Firm Subjective HPI: Ms. Darius Russo is a 63 y.o. female with PMH IBD (dx UC in 2022, c/f Crohn's now), adnexal mass, HTN, T2DM presenting as direct admit from GI clinic for progressive weight loss. Pt has had multiple admissions this summer with sigmoid diverticulitis thought to be complicated bycolonic microperforation. She was treated non-operatively with IV antibiotics, discharged with oralregimens. Most recently discharged on 11/05 with 4 weeks of cipro / flagyl. During these admissions,she was found to have large R adnexal mass as well as scattered liver / spleen abscesses. Evaluatedby IR and thought to be too small to drain. Business [employer] Representative onc evaluated, suspect that the mass is likely benign. She has continued to have persistent weight loss however, lost a total of 65 pounds in the past year. She has been treated with mesalamine suppository for her IBD and has not noted improvement. She continues to have multiple (>5) episodes of diarrhea per day, and is struggling with continence, and is wearing a pad consequently. She also is endorsing grayish rectal discharge. No fevers / chills/ abdominal pain. No nausea / vomiting. Endorses decreased appetite, getting full quickly. She alsohas had a cough for the last week, coupled with clear phlegm production. No CP or significant SOB. Endorsing chronic fatigue. Had an MRI and colonoscopy performed on 11/12 --> findings potentially concerning for Crohn's disease over UC. She was seen in GI clinic today and was directly admitted for coordination of care, consideration of starting Remicade vs operative management. VS on arrival as follows -- T 98.8F, HR 104, RR 18, BP 126/62, SpO2 100 on RA. Pt admitted to medicine [facility]. Overnight events: -NAEON -tolerating more food, sleeping well, normal BM Plan for today: - Continue on cipro flagyl - Magic mouthwash for throat pain - Send AM cortisol, Ical - pending Bacterial/AFB/fungal BCx/bronch labs - ID c/s onboard - GI c/s onboard - Pulm c/s onboard Past Medical History: Diagnosis Date Adrenal mass (HCC) Diabetes mellitus (HCC) Diverticulitis Hypertension Past Surgical History: Procedure Laterality Date CHOLECYSTECTOMY 08/2023 COLONOSCOPY 2021 TUBAL LIGATION Medications Prior to Admission Medication Sig Dispense Refill Last Dose acetaminophen 500 mg capsule Take 2 capsules (1,000 mg total) by mouth every 6 (six) hours as needed (pain) 30 tablet 0 11/24/2023 ciprofloxacin (CIPRO) 500 mg tablet Take 1 tablet (500 mg total) by mouth 2 (two) times a day 11/25/2023 cyanocobalamin (Vitamin B-12) 2,500 mcg tablet, sublingual Take 1 tablet (2,500 mcg total) by mouthdaily 11/25/2023 loperamide (IMODIUM) 2 mg capsule Take 1 capsule (2 mg total) by mouth 4 (four) times a day as needed for diarrhea 11/25/2023 losartan (COZAAR) 25 mg tablet Take 1 tablet (25 mg total) by mouth daily 11/25/2023 magnesium oxide 500 mg capsule Take by mouth daily 11/25/2023 mesalamine (CANASA) 1,000 mg suppository Insert 1 suppository (1,000 mg total) into the rectum nightly 30 suppository 0 Past Week metroNIDAZOLE (FLAGYL) 500 mg tablet Take 1 tablet (500 mg total) by mouth 2 (two) times a day 11/25/[address] (PROTONIX) 40 mg EC tablet Take 1 tablet (40 mg total) by mouth daily 11/25/2023 potassium chloride ER 10 mEq CR tablet Take 1 tablet/capsule (10 mEq total) by mouth daily 11/25/2023 ferrous sulfate 325 mg (65 mg of elemental iron) tablet Take 1 tablet (325 mg total) by mouth dailywith breakfast 30 tablet 11 Unknown UNABLE TO FIND IRON INFUSIONS PRN Allergies Allergen Reactions Azithromycin Rash Social History Tobacco Use Smoking status: Never Smokeless tobacco: Never Substance and Sexual Activity Drug use: Never Sexual activity: Defer Alcohol Use: Not At Risk (11/13/2023) AUDIT-C Frequency of Alcohol Consumption: Never Average Number of Drinks: Patient does not drink Frequency of Binge Drinking: Never Family History Problem Relation Age of Onset Diabetes Mother Emphysema Father Review of Systems All review of systems are negative except for as noted in HPI. Objective Vitals: 24hr Min/Max: Temp Min: 36.7 ??C (98.1 ??F) Max: 37 ??C (98.6 ??F) Pulse Min: 94 Max: 101 BP Min: 121/58 Max: 146/71 Resp Min: 19 Max: 20 SpO2 Min: 94 % Max: 96 % Most Recent Vitals: Vitals: 11/30/23 0355 BP: 146/71 Pulse: 101 Resp: 20 Temp: 37 ??C (98.6 ??F) SpO2: 94% Intake/Output Summary (Last 24 hours) at 11/30/2023 0705 Last data filed at 11/29/2023 1005 Gross per 24 hour Intake 510 ml Output -- Net 510 ml Physical Exam: General appearance: no acute distress HEENT: NCAT, MMM, anicteric Lungs: CTA on right, left side diminished lung sounds, no w/r/r, non-labored Heart: RRR, S1, S2 normal, no murmur, rub or gallop. JVP not elevated, no LE edema Abdomen: soft, mildly distended, nontender to palpation Extremities: extremities normal, warm and well-perfused, equal pulses Skin: warm and dry Neurologic: No abnormal movements, non-focal exam Lab/Radiology/Diagnostic Review: Recent Results (from the past 24 hour(s)) POCT glucose Collection Time: 11/29/23 8:28 AM Result Value Ref Range Glucose, POC 137 70 - 199 mg/dL POCT glucose Collection Time: 11/29/23 4:20 PM Result Value Ref Range Glucose, POC 185 70 - 199 mg/dL Basic metabolic panel Collection Time: 11/29/23 8:51 PM Result Value Ref Range Sodium 131 (L) 135 - 145 mmol/L Potassium, pl 4.0 3.3 - 4.9 mmol/L Chloride 101 97 - 110 mmol/L CO2 24 22 - 32 mmol/L Anion gap 6 2 - 15 mmol/L BUN 12 6 - 25 mg/dL Creatinine 0.86 0.60 - 1.10 mg/dL Glucose 163 70 - 199 mg/dL Calcium 7.9 (L) 8.5 - 10.3 mg/dL CBC with auto differential Collection Time: 11/29/23 8:51 PM Result Value Ref Range WBC 14.2 (H) 3.8 - 9.9 K/cumm Hgb 7.5 (L) 11.9 - 15.5 g/dL Hct 24.3 (L) 35.6 - 45.5 % Plt 443 (H) 150 - 400 K/cumm MPV 8.4 (L) 9.1 - 12.3 fL RBC 2.91 (L) 3.90 - 5.20 M/cumm MCV 83.5 81.3 - 96.4 fL MCH 25.8 (L) 27.1 - 33.3 pg MCHC 30.9 (L) 32.3 - 35.7 g/dL RDW CV 18.3 (H) 11.1 - 14.9 % RDW SD 55.5 (H) 35.7 - 48.1 fL NRBC abs 0.00 0.00 - 0.01 K/cumm Magnesium Collection Time: 11/29/23 8:51 PM Result Value Ref Range Magnesium 1.7 1.4 - 2.5 mg/dL Phosphorus Collection Time: 11/29/23 8:51 PM Result Value Ref Range Phosphorus, pl 2.7 2.3 - 4.5 mg/dL Differential, auto Collection Time: 11/29/23 8:51 PM Result Value Ref Range Neutrophil abs 11.0 (H) 1.5 - 6.5 K/cumm Imm gran abs 0.1 0.0 - 0.1 K/cumm Lymphocyte abs 1.6 0.8 - 3.3 K/cumm Monocyte abs 1.2 (H) 0.2 - 0.8 K/cumm Eosinophil abs 0.2 0.0 - 0.5 K/cumm Basophil abs 0.1 0.0 - 0.1 K/cumm Neutrophil pct 77.4 % Imm gran pct 0.6 % Lymphocyte pct 11.3 % Monocyte pct 8.7 % Eosinophil pct 1.6 % Basophil pct 0.4 % eGFR Collection Time: 11/29/23 8:51 PM Result Value Ref Range eGFR 75 >=60 mL/min/1.73 m2 POCT glucose Collection Time: 11/29/23 9:07 PM Result Value Ref Range Glucose, POC 173 70 - 199 mg/dL Additional lab tests: Imaging Results: 11/26/23 CT C/A/P IMPRESSION: 1. Development of left upper lobe predominant peribronchovascular nodules, some of which are cavitating, and associated smooth interlobular septal line thickening, supraclavicular, mediastinal, and hilar supraclavicular lymphadenopathy, and a small left pleural effusion with pleural thickening. Given that these findings are new since 10/02/2023, they are favored to represent an atypical infection such as a fungal infection. Vasculitis is a less likely differential consideration. Metastatic disease could have this [...] diverticulitis. 3. Improving hepatic and splenic abscesses. Additional diagnostic/procedure review: Assessment and Plan 63 y.o. female with PMH IBD (dx UC in 2022, c/f Crohn's now), adnexal mass, HTN, T2DM presenting asdirect admit from GI clinic for progressive weight loss. # Weight loss # Inflammatory Bowel Disease (UC vs CD) # Hx diverticulitis # Contained colonic perf Progressive 65 lb weight loss in 2023. Dx with UC in 2022, was previously on mesalamine suppository. Persistent daily diarrhea, wears pads, endorsing dawn discharge. Limited appetite, gets full quickly. Multiple admits this summer for sigmoid diverticulitis, treated non-operatively with antibiotics. Was most recently dc on 11/05 with 4 wks of cipro / flagyl. Direct admit from GI clinic with Dr. Jung. Presentation is concerning for possible IBD flare vs infectious process (spleen/liver) vs masseffect from adnexal mass. Her presentation is concerning for multiple ongoing disease processes. CTon 11/25 suggest that colonic perf is more 2/2 IBD rather than diverticulitis. Concern is that this d isease process may be affecting other parts of her clinical picture; splenic/liver abscesses may berelated, possibly seeded, from colonic perf. Weight loss/malnutrition may also be associated with mass effect from adnexal mass. Pt diarrhea has been improving, with solid stools, but may present another source of electrolyte/nutrition loss. Less likely sources of weight loss include adrenal/thyroid abnormalities in the setting of chronic inflammatory disease, which have been ruled out with lab tests. Pt has been clinically improving since admission, without abd pain and having decreased diarrhea. - MRI abdomen / pelvis 11/12 -- sigmoid diverticulitis w contained perf, superimposed mild inflammation in rectum /sigmoid. Scattered liver / spleen abscesses. R ovarian mass. Secondary hemochromatosis. - C-scope 11/12 -- diffuse severe inflamm in sigmoid colon. Pathology findings -- Colonic mucosa with mildly active chronic colitis (crypt distortion, cryptitis) - GI c/s: pending ID recommendations - ID c/s: fungal, mycobacterial, blood cx - RD consult - recommend IV thiamine, folic acid, B6 - Continue cipro / flagyl #Lung lesion Week of significant cough, CT Chest showing cavitaty pulm nodules with associated lymphadenopathy. Per ID, possible fungal/mycobacterial infection, sarcoid, vasculitis, malignancy also possible. 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 Pt has risk factor for opportunistic infection of acute malnutrition. Pt seen by [facility], do not think this is malignancy and felt the CT chest did not have cavitation (vs air bronchograms). Pulm consulted, concern for infection, plan for bronch +/- biopsy. -AFB BCx -BCx - ngtd x48h -Fungal bcx x24h -serum/urine histo -blasto -cryptococcal - negative -continue cipro flagyl # Liver / spleen abscesses Scattered liver / spleen abscesses seen on 11/12 MRI, similar to prior imaging. Evaluated by IR during prior admission, deemed too small to drain. Will complicate potential initiation of Remicade. CT A/P showed decrease in size of abscesses, possibly controlled by antibiotic regimen. May need biopsyin future for treatment. Pt will likely not be able to initiate remicade. - continue cipro / flagyl for now as above - ID c/s: rec continue cipro/flagyl #Malnutrition #Acute weight loss Recent 65 pound weight loss (within 4 months). Decreased appetite, early satiety, chronic diarrhea/tenesmus. Nutrition consulted, with concerns for severe malnutrition - per nutrition recs - IV Thiamine 500 x3 doses -PO thiamine every day -Folic acid every day -MVI every day -Thiamine every day -Vit B6 every day #Hyponatremia Found to be hyponatremic on admission (130), decreased to 127. Pt asymptomatic, has hx of hyponatremia, encouraged by outpt doctors to drink electrolyte supplements. In past, responsive to IVF, thought to be 2/2 GI loss or dehydration. Serum/urine Osm suggest appropriate urine concentration, urine Na suggests intrarenal sodium loss (>20). Possibly 2/2 losartan, also possible mineralocorticoid deficiency. -Plan to work up - Urine lytes, urine osm, serum osm - suggest appropriate renal concentration, elevated sodium excretion - Send cortisol # Adnexal Mass Multiseptated cystic lesion appearing to arise from the right ovary measuring 16.4 x 11.6 x 14.2 cm, as described on 11/12 MRI. - Business Office Representative onc aware, suspect likely benign - If pursuing sigmoid colectomy, can simultaneously remove adnexal mass # HTN - continue losartan 25mg daily # T2DM - A1c 5.7%. SSI. - CTM Code - Full Diet - Regular DVT prophylaxis - Lovenox Dispo - TBD Michael Huizar PGY1 Cosigned by Suhail Alfredo MD at 11/30/2023 5:06 PM CDT Associated attestation - Suhail Alfredo MD - 11/30/2023 5:06 PM CDT Attending Documentation I have seen and examined the patient on 11/30/23. I agree with the findings and plan of care as documented in the resident's/fellow's note. 63F with IBD-Crohn's, adnexal mass, complicated diverticulitis? with contained perforation now favored to represent sequelae of Crohn's, HTN presented from GI clinic as direct admission for progressive weight loss and expedited workup. Evaluated by GI, ID, pulmonology (and interventional pulm) during admission. Underwent imaging showing new left upper lobe predominant peribronchovascular nodules,some cavitating, with lymphadenopathy and small pleural effusion, and otherwise stable adnexal mass, improving hepatic/splenic fluid collections. Underwent bronchoscopy 11/27 with pulmonology. - Infectious workup pending, follow up on blood and BAL cultures/path - Pending workup, further multidisciplinary discussion regarding likely Crohn's disease with biologic and/or surgical management - Continue outpatient cipro/flagyl for now - If bronchoscopy results without TB, can remove airborne precautions per IP Supplementary Attestation My total encounter time on this service date was 12 minutes which was spent performing a [id number] encounter and personally completing the provider-level activities documented in the note. This includes time spent prior to the visit and after the visit in direct care of the patient. This time does not include time spent in any separately reportable services. Suhail Alfredo MD * Michael Huizar MD - 11/29/2023 7:04 AM CDT History and Physical Medicine Firm Subjective HPI: Ms. Darius Russo is a 63 y.o. female with PMH IBD (dx UC in 2022, c/f Crohn's now), adnexal mass, HTN, T2DM presenting as direct admit from GI clinic for progressive weight loss. Pt has had multiple admissions this summer with sigmoid diverticulitis thought to be complicated bycolonic microperforation. She was treated non-operatively with IV antibiotics, discharged with oralregimens. Most recently discharged on 11/05 with 4 weeks of cipro / flagyl. During these admissions,she was found to have large R adnexal mass as well as scattered liver / spleen abscesses. Evaluatedby IR and thought to be too small to drain. Business Office Representative onc evaluated, suspect that the mass is likely benign. She has continued to have persistent weight loss however, lost a total of 65 pounds in the past year. She has been treated with mesalamine suppository for her IBD and has not noted improvement. She continues to have multiple (>5) episodes of diarrhea per day, and is struggling with continence, and is wearing a pad consequently. She also is endorsing grayish rectal discharge. No fevers / chills/ abdominal pain. No nausea / vomiting. Endorses decreased appetite, getting full quickly. She alsohas had a cough for the last week, coupled with clear phlegm production. No CP or significant SOB. Endorsing chronic fatigue. Had an MRI and colonoscopy performed on 11/12 --> findings potentially concerning for Crohn's disease over UC. She was seen in GI clinic today and was directly admitted for coordination of care, consideration of starting Remicade vs operative management. VS on arrival as follows -- T 98.8F, HR 104, RR 18, BP 126/62, SpO2 100 on RA. Pt admitted to medicine firm. Overnight events: -NAEON -tolerating more food, sleeping well, normal BM Plan for today: - Continue on cipro flagyl - Bronch with pulm in AM - Infectious workup - pending Bacterial/AFB/fungal BCx - ID c/s - GI c/s Past Medical History: Diagnosis Date Adrenal mass (HCC) Diabetes mellitus (HCC) Diverticulitis Hypertension Past Surgical History: Procedure Laterality Date CHOLECYSTECTOMY 08/2023 COLONOSCOPY 2021 TUBAL LIGATION Medications Prior to Admission Medication Sig Dispense Refill Last Dose acetaminophen 500 mg capsule Take 2 capsules (1,000 mg total) by mouth every 6 (six) hours as needed (pain) 30 tablet 0 11/24/2023 ciprofloxacin (CIPRO) 500 mg tablet Take 1 tablet (500 mg total) by mouth 2 (two) times a day 11/25/2023 cyanocobalamin (Vitamin B-12) 2,500 mcg tablet, sublingual Take 1 tablet (2,500 mcg total) by mouthdaily 11/25/2023 loperamide (IMODIUM) 2 mg capsule Take 1 capsule (2 mg total) by mouth 4 (four) times a day as needed for diarrhea 11/25/2023 losartan (COZAAR) 25 mg tablet Take 1 tablet (25 mg total) by mouth daily 11/25/2023 magnesium oxide 500 mg capsule Take by mouth daily 11/25/2023 mesalamine (CANASA) 1,000 mg suppository Insert 1 suppository (1,000 mg total) into the rectum nightly 30 suppository 0 Past Week metroNIDAZOLE (FLAGYL) 500 mg tablet Take 1 tablet (500 mg total) by mouth 2 (two) times a day 11/25/[address] (PROTONIX) 40 mg EC tablet Take 1 tablet (40 mg total) by mouth daily 11/25/2023 potassium chloride ER 10 mEq CR tablet Take 1 tablet/capsule (10 mEq total) by mouth daily 11/25/2023 ferrous sulfate 325 mg (65 mg of elemental iron) tablet Take 1 tablet (325 mg total) by mouth dailywith breakfast 30 tablet 11 Unknown UNABLE TO FIND IRON INFUSIONS PRN Allergies Allergen Reactions Azithromycin Rash Social History Tobacco Use Smoking status: Never Smokeless tobacco: Never Substance and Sexual Activity Drug use: Never Sexual activity: Defer Alcohol Use: Not At Risk (11/13/2023) AUDIT-C Frequency of Alcohol Consumption: Never Average Number of Drinks: Patient does not drink Frequency of Binge Drinking: Never Family History Problem Relation Age of Onset Diabetes Mother Emphysema Father Review of Systems All review of systems are negative except for as noted in HPI. Objective Vitals: 24hr Min/Max: Temp Min: 36.7 ??C (98.1 ??F) Max: 37 ??C (98.6 ??F) Pulse Min: 81 Max: 112 BP Min: 87/55 Max: 137/60 Resp Min: 12 Max: 30 SpO2 Min: 85 % Max: 100 % Most Recent Vitals: Vitals: 11/29/23 0830 BP: 124/81 Pulse: 94 Resp: 20 Temp: 36.7 ??C (98.1 ??F) SpO2: 95% Intake/Output Summary (Last 24 hours) at 11/29/2023 1004 Last data filed at 11/28/2023 2110 Gross per 24 hour Intake 205 ml Output 50 ml Net 155 ml Physical Exam: General appearance: no acute distress HEENT: NCAT, MMM, anicteric Lungs: CTA on right, left side diminished lung sounds, no w/r/r, non-labored Heart: RRR, S1, S2 normal, no murmur, rub or gallop. JVP not elevated, no LE edema Abdomen: soft, mildly distended, nontender to palpation Extremities: extremities normal, warm and well-perfused, equal pulses Skin: warm and dry Neurologic: No abnormal movements, non-focal exam Lab/Radiology/Diagnostic Review: Recent Results (from the past 24 hour(s)) Adenovirus PCR qualitative Bronchoalveolar lavage Collection Time: 11/28/23 11:02 AM Specimen: Bronchoalveolar lavage Result Value Ref Range Adenovirus DNA Not Detected Not Detected Legionella culture Bronchoalveolar lavage Collection Time: 11/28/23 11:02 AM Specimen: Bronchoalveolar lavage Result Value Ref Range Report Preliminary Report: Culture results pending. Mycology (fungal) culture Bronchoalveolar lavage Bronchial Collection Time: 11/28/23 11:02 AM Specimen: Bronchial; Bronchoalveolar lavage Result Value Ref Range Report Preliminary Report: No growth of fungus to date Mycology (fungal) culture Bronchial washing Lobe, left upper Collection Time: 11/28/23 11:02 AM Specimen: Lobe, left upper; Bronchial washing Result Value Ref Range Report Preliminary Report: No growth of fungus to date Aerobic culture and gram stain Bronchial washing Lobe, left upper Collection Time: 11/28/23 11:02 AM Specimen: Lobe, left upper; Bronchial washing Result Value Ref Range Direct Specimen Exam Stain: Cytospin Gram stain shows: Abundant polymorphonuclear leukocytes seen. Abundant squamous epithelial cells seen indicating excessive oral pharyngeal contamination Other cellular material present. Rare mixed bacterial noah seen on Gram stain. Report Preliminary Report: Culture results pending. Cytomegalovirus (CMV) PCR qualitative Bronchoalveolar lavage Lobe, left upper Collection Time: 11/28/23 11:02 AM Specimen: Lobe, left upper; Bronchoalveolar lavage Result Value Ref Range CMV DNA Not Detected Not Detected Pneumonia PCR with aerobic culture and Gram stain Bronchoalveolar lavage Lobe, left upper Collection Time: 11/28/23 11:02 AM Specimen: Lobe, left upper; Bronchoalveolar lavage Result Value Ref Range Direct Specimen Exam Molecular Analysis: No bacterial [...] bacterial noah seen on Gram stain. Report Preliminary Report: Culture results pending. Cell count w/rflx diff, body fluid Collection Time: 11/28/23 11:02 AM Result Value Ref Range Specimen type, fld Bronchial Body site, fld Bronch Lavage Color, fld Straw Clarity, fld Clear Clear Nucleated cells, fld 751 /cumm RBC, fld 0 /cumm Cell Differential, Body Fluid Collection Time: 11/28/23 11:02 AM Result Value Ref Range Total cells diffed 100 cells Neutrophils, fld 62 % Lymphs, fld 1 % Monocyte, fld 3 % Macrophages, fld 34 % Pneumonia PCR Bronchoalveolar lavage Lobe, left upper Collection Time: 11/28/23 11:02 AM Specimen: Lobe, left upper; Bronchoalveolar lavage Result Value Ref Range C. pneumoniae DNA Not Detected Not Detected Legionella pneumophila DNA Not Detected Not Detected M. pneumoniae DNA Not Detected Not Detected Adenovirus DNA Not Detected Not Detected Coronavirus (229E, OC43, HKU1, NL63) RNA Not Detected Not Detected Metapneumovirus RNA Not Detected Not Detected Rhinovirus/Enterovirus RNA Not Detected Not Detected Influenza A RNA Not Detected Not Detected Influenza B RNA Not Detected Not Detected Parainfluenza virus (1-4) RNA Not Detected Not Detected RSV RNA Not Detected Not Detected POCT glucose Collection Time: 11/28/23 11:50 AM Result Value Ref Range Glucose, POC 149 70 - 199 mg/dL Leukocytes, fecal Collection Time: 11/28/23 4:13 PM Result Value Ref Range WBC, fecal Few leukocytes (A) No leukocytes Calcium, ionized Collection Time: 11/28/23 4:13 PM Result Value Ref Range Calcium, Ionized 4.54 4.50 - 5.10 mg/dL POCT glucose Collection Time: 11/28/23 4:45 PM Result Value Ref Range Glucose, POC 127 70 - 199 mg/dL POCT glucose Collection Time: 11/28/23 8:35 PM Result Value Ref Range Glucose, POC 129 70 - 199 mg/dL Basic metabolic panel Collection Time: 11/29/23 12:46 AM Result Value Ref Range Sodium 135 135 - 145 mmol/L Potassium, pl 4.3 3.3 - 4.9 mmol/L Chloride 101 97 - 110 mmol/L CO2 28 22 - 32 mmol/L Anion gap 6 2 - 15 mmol/L BUN 15 6 - 25 mg/dL Creatinine 0.82 0.60 - 1.10 mg/dL Glucose 97 70 - 199 mg/dL Calcium 8.4 (L) 8.5 - 10.3 mg/dL CBC with auto differential Collection Time: 11/29/23 12:46 AM Result Value Ref Range WBC 17.2 (H) 3.8 - 9.9 K/cumm Hgb 8.0 (L) 11.9 - 15.5 g/dL Hct 27.2 (L) 35.6 - 45.5 % Plt 511 (H) 150 - 400 K/cumm MPV 8.4 (L) 9.1 - 12.3 fL RBC 3.18 (L) 3.90 - 5.20 M/cumm MCV 85.5 81.3 - 96.4 fL MCH 25.2 (L) 27.1 - 33.3 pg MCHC 29.4 (L) 32.3 - 35.7 g/dL RDW CV 18.0 (H) 11.1 - 14.9 % RDW SD 56.4 (H) 35.7 - 48.1 fL NRBC abs 0.00 0.00 - 0.01 K/cumm Magnesium Collection Time: 11/29/23 12:46 AM Result Value Ref Range Magnesium 2.0 1.4 - 2.5 mg/dL Phosphorus Collection Time: 11/29/23 12:46 AM Result Value Ref Range Phosphorus, pl 3.5 2.3 - 4.5 mg/dL Differential, auto Collection Time: 11/29/23 12:46 AM Result Value Ref Range Neutrophil abs 12.3 (H) 1.5 - 6.5 K/cumm Imm gran abs 0.1 0.0 - 0.1 K/cumm Lymphocyte abs 3.0 0.8 - 3.3 K/cumm Monocyte abs 1.5 (H) 0.2 - 0.8 K/cumm Eosinophil abs 0.3 0.0 - 0.5 K/cumm Basophil abs 0.1 0.0 - 0.1 K/cumm Neutrophil pct 71.4 % Imm gran pct 0.8 % Lymphocyte pct 17.3 % Monocyte pct 8.6 % Eosinophil pct 1.5 % Basophil pct 0.4 % eGFR Collection Time: 11/29/23 12:46 AM Result Value Ref Range eGFR 79 >=60 mL/min/1.73 m2 POCT glucose Collection Time: 11/29/23 8:28 AM Result Value Ref Range Glucose, POC 137 70 - 199 mg/dL Additional lab tests: Imaging Results: 11/26/23 CT C/A/P IMPRESSION: 1. Development of left upper lobe predominant peribronchovascular nodules, some of which are cavitating, and associated smooth interlobular septal line thickening, supraclavicular, mediastinal, and hilar supraclavicular lymphadenopathy, and a small left pleural effusion with pleural thickening. Given that these findings are new since 10/02/2023, they are favored to represent an atypical infection such as a fungal infection. Vasculitis is a less likely differential consideration. Metastatic disease could have this [...] diverticulitis. 3. Improving hepatic and splenic abscesses. Additional diagnostic/procedure review: Assessment and Plan 63 y.o. female with PMH IBD (dx UC in 2022, c/f Crohn's now), adnexal mass, HTN, T2DM presenting asdirect admit from GI clinic for progressive weight loss. # Weight loss # Inflammatory Bowel Disease (UC vs CD) # Hx diverticulitis # Contained colonic perf Progressive 65 lb weight loss in 2023. Dx with UC in 2022, was previously on mesalamine suppository. Persistent daily diarrhea, wears pads, endorsing dawn discharge. Limited appetite, gets full quickly. Multiple admits this summer for sigmoid diverticulitis, treated non-operatively with antibiotics. Was most recently dc on 11/05 with 4 wks of cipro / flagyl. Direct admit from GI clinic with Dr. Jung. Presentation is concerning for possible IBD flare vs infectious process (spleen/liver) vs masseffect from adnexal mass. Her presentation is concerning for multiple ongoing disease processes. CTon 11/25 suggest that colonic perf is more 2/2 IBD rather than diverticulitis. Concern is that this d isease process may be affecting other parts of her clinical picture; splenic/liver abscesses may berelated, possibly seeded, from colonic perf. Weight loss/malnutrition may also be associated with mass effect from adnexal mass. Pt diarrhea has been improving, with solid stools, but may present another source of electrolyte/nutrition loss. Less likely sources of weight loss include adrenal/thyroid abnormalities in the setting of chronic inflammatory disease, which have been ruled out with lab tests. Pt has been clinically improving since admission, without abd pain and having decreased diarrhea. - MRI abdomen / pelvis 11/12 -- sigmoid diverticulitis w contained perf, superimposed mild inflammation in rectum /sigmoid. Scattered liver / spleen abscesses. R ovarian mass. Secondary hemochromatosis. - C-scope 11/12 -- diffuse severe inflamm in sigmoid colon. Pathology findings -- Colonic mucosa with mildly active chronic colitis (crypt distortion, cryptitis) - GI c/s: pending ID recommendations - ID c/s: fungal, mycobacterial, blood cx - RD consult - recommend IV thiamine, folic acid, B6 - Continue cipro / flagyl #Lung lesion Week of significant cough, CT Chest showing cavitaty pulm nodules with associated lymphadenopathy. Per ID, possible fungal/mycobacterial infection, sarcoid, vasculitis, malignancy also possible. Pt with few risk factors; lives in 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 Pt has risk factor for opportunistic infection of acute malnutrition. Pt seen by Damon Galeano, do not think this is malignancy and felt the CT chest did not have cavitation (vs air bronchograms). Pulm consulted, concern for infection, plan for bronch +/- biopsy. -AFB BCx -BCx - ngtd x48h -Fungal bcx x24h -serum/urine histo -blasto -cryptococcal - negative -continue cipro flagyl # Liver / spleen abscesses Scattered liver / spleen abscesses seen on 11/12 MRI, similar to prior imaging. Evaluated by IR during prior admission, deemed too small to drain. Will complicate potential initiation of Remicade. CT A/P showed decrease in size of abscesses, possibly controlled by antibiotic regimen. May need biopsyin future for treatment. Pt will likely not be able to initiate remicade. - continue cipro / flagyl for now as above - ID c/s: rec continue cipro/flagyl #Malnutrition #Acute weight loss Recent 65 pound weight loss (within 4 months). Decreased appetite, early satiety, chronic diarrhea/tenesmus. Nutrition consulted, with concerns for severe malnutrition - per nutrition recs - IV Thiamine 500 x3 doses -PO thiamine every day -Folic acid every day -MVI every day -Thiamine every day -Vit B6 every day #Hyponatremia Found to be hyponatremic on admission (130), decreased to 127. Pt asymptomatic, has hx of hyponatremia, encouraged by outpt doctors to drink electrolyte supplements. In past, responsive to IVF, thought to be 2/2 GI loss or dehydration. -Plan to work up - Urine lytes, urine osm, serum osm # Adnexal Mass Multiseptated cystic lesion appearing to arise from the right ovary measuring 16.4 x 11.6 x 14.2 cm, as described on 11/12 MRI. - Business Office Representative onc aware, suspect likely benign - If pursuing sigmoid colectomy, can simultaneously remove adnexal mass # HTN - continue losartan 25mg daily # T2DM - A1c 5.7%. SSI. - CTM Code - Full Diet - Regular DVT prophylaxis - Lovenox Dispo - TBD Michael Huizar PGY1 Cosigned by Suhail Alfredo MD at 11/30/2023 2:20 AM CDT Associated attestation - Suhail Alfredo MD - 11/30/2023 2:20 AM CDT Attending Documentation I have seen and examined the patient on 11/29/2023. I agree with the findings and plan of care as documented in the resident's/fellow's note. Supplementary Attestation My total encounter time on this service date was 15 minutes which was spent performing a [id number] encounter and personally completing the provider-level activities documented in the note. This includes time spent prior to the visit and after the visit in direct care of the patient. This time does not include time spent in any separately reportable services. Suhail Alfredo MD * Olamide Germain RRT - 11/28/2023 10:41 AM CDT 2% 8 mls 1% 20 mls WASH 40 mls EBL 5 mls IV fluid 300 mls BAL 100 / 50 LINGULA TBBX LINGULA x 6 FLUORO 2 min 0 sec VERSED 4 mg given WASTED 1 mg RETURNED 5 mg FENTANYL 100 mcg given WASTED 0 mcg RETURNED 100 mcg LAST LIDO GIVEN / SCOPE IN 1023 SCOPE OUT 1038 TOTAL SCOPE TIME 15 min TOTAL SEDATION TIME 23 min REPORT GIVEN OVER PHONE. XRAY DONE IN BRONCH ROOM. PATIENT WILL RETURN ON OXYGEN TO BE WEANED TOLERATED. ALL VITALS FLOWED OVER TO FLOWSHEETS. PATIENT TOLERATED PROCEDURE WELL. FREQUENT VITALS TO BE DONE ONCE PATIENT RETURNS TO HER BED. * Ricky Vasquez MD - 11/28/2023 10:07 AM CDT Pre-Procedure/Pre-Sedation Assessment Planned Procedure: FOB with BAL and possible TBBx Reason for Procedure: FRANKLIN opacities The patient has been NPO for the appropriate amount of time. Past medical history per consultation/office notes. Prescribed use of blood thinner: No Prescribed use of antiplatelet agent: No History of thrombocytopenia or bleeding disorder: No Allergies: Allergies Allergen Reactions Azithromycin Rash Physical Exam: General: No acute distress Airway Mallampati Score: 2 Cardiovascular: RRR Pulmonary/Chest: Scattered FRANKLIN crackles Labs: Lab Results Component Value Date WBC 14.4 (H) 11/28/2023 HGB 7.8 (L) 11/28/2023 HCT 25.5 (L) 11/28/2023 MCV 83.9 11/28/2023 LABPLAT 434 (H) 11/28/2023 Lab Results Component Value Date CREATININE 0.78 11/28/2023 Lab Results Component Value Date INR 1.62 (H) 11/28/2023 No results found for: PTT ASA SCORE: 3 SEDATION/ANESTHESIA PLAN: Moderate sedation Informed Consent: Benefits, risks, alternatives discussed; patient/credit and collections representative accepts/agrees tosedation/anesthesia plan and to the procedure. Patient has tolerated sedation in the past without complication. Post Procedure Monitoring Plan: Floor * Michael Huizar MD - 11/28/2023 7:43 AM CDT History and Physical Medicine Firm Subjective HPI: Ms. Darius Russo is a 63 y.o. female with PMH IBD (dx UC in 2022, c/f Crohn's now), adnexal mass, HTN, T2DM presenting as direct admit from GI clinic for progressive weight loss. Pt has had multiple admissions this summer with sigmoid diverticulitis thought to be complicated bycolonic microperforation. She was treated non-operatively with IV antibiotics, discharged with oralregimens. Most recently discharged on 11/05 with 4 weeks of cipro / flagyl. During these admissions,she was found to have large R adnexal mass as well as scattered liver / spleen abscesses. Evaluatedby IR and thought to be too small to drain. Business Office Representative onc evaluated, suspect that the mass is likely benign. She has continued to have persistent weight loss however, lost a total of 65 pounds in the past year. She has been treated with mesalamine suppository for her IBD and has not noted improvement. She continues to have multiple (>5) episodes of diarrhea per day, and is struggling with continence, and is wearing a pad consequently. She also is endorsing grayish rectal discharge. No fevers / chills/ abdominal pain. No nausea / vomiting. Endorses decreased appetite, getting full quickly. She alsohas had a cough for the last week, coupled with clear phlegm production. No CP or significant SOB. Endorsing chronic fatigue. Had an MRI and colonoscopy performed on 11/12 --> findings potentially concerning for Crohn's disease over UC. She was seen in GI clinic today and was directly admitted for coordination of care, consideration of starting Remicade vs operative management. VS on arrival as follows -- T 98.8F, HR 104, RR 18, BP 126/62, SpO2 100 on RA. Pt admitted to [facility]. Overnight events: -NAEON Plan for today: - Continue on cipro flagyl - Bronch with pulm in AM - Infectious workup - pending Bacterial/AFB/fungal BCx - ID c/s - GI c/s Past Medical History: Diagnosis Date Adrenal mass (HCC) Diabetes mellitus (HCC) Diverticulitis Hypertension Past Surgical History: Procedure Laterality Date CHOLECYSTECTOMY 08/2023 COLONOSCOPY 2021 TUBAL LIGATION Medications Prior to Admission Medication Sig Dispense Refill Last Dose acetaminophen 500 mg capsule Take 2 capsules (1,000 mg total) by mouth every 6 (six) hours as needed (pain) 30 tablet 0 11/24/2023 ciprofloxacin (CIPRO) 500 mg tablet Take 1 tablet (500 mg total) by mouth 2 (two) times a day 11/25/2023 cyanocobalamin (Vitamin B-12) 2,500 mcg tablet, sublingual Take 1 tablet (2,500 mcg total) by mouthdaily 11/25/2023 loperamide (IMODIUM) 2 mg capsule Take 1 capsule (2 mg total) by mouth 4 (four) times a day as needed for diarrhea 11/25/2023 losartan (COZAAR) 25 mg tablet Take 1 tablet (25 mg total) by mouth daily 11/25/2023 magnesium oxide 500 mg capsule Take by mouth daily 11/25/2023 mesalamine (CANASA) 1,000 mg suppository Insert 1 suppository (1,000 mg total) into the rectum nightly 30 suppository 0 Past Week metroNIDAZOLE (FLAGYL) 500 mg tablet Take 1 tablet (500 mg total) by mouth 2 (two) times a day 11/25/[address] (PROTONIX) 40 mg EC tablet Take 1 tablet (40 mg total) by mouth daily 11/25/2023 potassium chloride ER 10 mEq CR tablet Take 1 tablet/capsule (10 mEq total) by mouth daily 11/25/2023 ferrous sulfate 325 mg (65 mg of elemental iron) tablet Take 1 tablet (325 mg total) by mouth dailywith breakfast 30 tablet 11 Unknown UNABLE TO FIND IRON INFUSIONS PRN Allergies Allergen Reactions Azithromycin Rash Social History Tobacco Use Smoking status: Never Smokeless tobacco: Never Substance and Sexual Activity Drug use: Never Sexual activity: Defer Alcohol Use: Not At Risk (11/13/2023) AUDIT-C Frequency of Alcohol Consumption: Never Average Number of Drinks: Patient does not drink Frequency of Binge Drinking: Never Family History Problem Relation Age of Onset Diabetes Mother Emphysema Father Review of Systems All review of systems are negative except for as noted in HPI. Objective Vitals: 24hr Min/Max: Temp Min: 36.7 ??C (98.1 ??F) Max: 36.9 ??C (98.4 ??F) Pulse Min: 96 Max: 108 BP Min: 115/59 Max: 133/64 Resp Min: 17 Max: 18 SpO2 Min: 96 % Max: 100 % Most Recent Vitals: Vitals: 11/27/231944 BP: 133/64 Pulse: 108 Resp: 18 Temp: 36.9 ??C (98.4 ??F) SpO2: 100% No intake or output data in the 24 hours ending 11/28/23 0743 Physical Exam: General appearance: no acute distress HEENT: NCAT, MMM, anicteric Lungs: CTA on right, left side diminished lung sounds, no w/r/r, non-labored Heart: RRR, S1, S2 normal, no murmur, rub or gallop. JVP not elevated, no LE edema Abdomen: soft, mildly distended, nontender to palpation Extremities: extremities normal, warm and well-perfused, equal pulses Skin: warm and dry Neurologic: No abnormal movements, non-focal exam Lab/Radiology/Diagnostic Review: Recent Results (from the past 24 hour(s)) POCT glucose Collection Time: 11/27/23 7:54 AM Result Value Ref Range Glucose, POC 141 70 - 199 mg/dL POCT glucose Collection Time: 11/27/23 11:45 AM Result Value Ref Range Glucose, POC 179 70 - 199 mg/dL POCT glucose Collection Time: 11/27/23 5:35 PM Result Value Ref Range Glucose, POC 145 70 - 199 mg/dL POCT glucose Collection Time: 11/27/23 7:46 PM Result Value Ref Range Glucose, POC 170 70 - 199 mg/dL Basic metabolic panel Collection Time: 11/28/23 1:10 AM Result Value Ref Range Sodium 134 (L) 135 - 145 mmol/L Potassium, pl 4.1 3.3 - 4.9 mmol/L Chloride 98 97 - 110 mmol/L CO2 28 22 - 32 mmol/L Anion gap 8 2 - 15 mmol/L BUN 15 6 - 25 mg/dL Creatinine 0.78 0.60 - 1.10 mg/dL Glucose 153 70 - 199 mg/dL Calcium 8.3 (L) 8.5 - 10.3 mg/dL CBC with auto differential Collection Time: 11/28/23 1:10 AM Result Value Ref Range WBC 14.4 (H) 3.8 - 9.9 K/cumm Hgb 7.8 (L) 11.9 - 15.5 g/dL Hct 25.5 (L) 35.6 - 45.5 % Plt 434 (H) 150 - 400 K/cumm MPV 8.7 (L) 9.1 - 12.3 fL RBC 3.04 (L) 3.90 - 5.20 M/cumm MCV 83.9 81.3 - 96.4 fL MCH 25.7 (L) 27.1 - 33.3 pg MCHC 30.6 (L) 32.3 - 35.7 g/dL RDW CV 17.9 (H) 11.1 - 14.9 % RDW SD 54.8 (H) 35.7 - 48.1 fL NRBC abs 0.00 0.00 - 0.01 K/cumm Magnesium Collection Time: 11/28/23 1:10 AM Result Value Ref Range Magnesium 2.0 1.4 - 2.5 mg/dL Phosphorus Collection Time: 11/28/23 1:10 AM Result Value Ref Range Phosphorus, pl 3.5 2.3 - 4.5 mg/dL CRP (acute phase) Collection Time: 11/28/23 1:10 AM Result Value Ref Range CRP 173.3 (H) <=10.0 mg/L Erythrocyte sedimentation rate Collection Time: 11/28/23 1:10 AM Result Value Ref Range Erythrocyte sedimentation rate 97 (H) 1 - 30 mm/hr Osmolality, blood Collection Time: 11/28/23 1:10 AM Result Value Ref Range Osmo 281 275 - 300 mOsm/kg Type and screen Collection Time: 11/28/23 1:10 AM Result Value Ref Range ABO Rh O Positive Maira, indirect Negative Protime-INR Collection Time: 11/28/23 1:10 AM Result Value Ref Range PT 17.7 (H) 9.7 - 13.0 sec INR 1.62 (H) 0.90 - 1.20 aPTT Collection Time: 11/28/23 1:10 AM Result Value Ref Range aPTT 30 28 - 38 sec Differential, auto Collection Time: 11/28/23 1:10 AM Result Value Ref Range Neutrophil abs 11.0 (H) 1.5 - 6.5 K/cumm Imm gran abs 0.1 0.0 - 0.1 K/cumm Lymphocyte abs 1.6 0.8 - 3.3 K/cumm Monocyte abs 1.5 (H) 0.2 - 0.8 K/cumm Eosinophil abs 0.1 0.0 - 0.5 K/cumm Basophil abs 0.1 0.0 - 0.1 K/cumm Neutrophil pct 76.5 % Imm gran pct 0.8 % Lymphocyte pct 11.4 % Monocyte pct 10.1 % Eosinophil pct 0.8 % Basophil pct 0.4 % eGFR Collection Time: 11/28/23 1:10 AM Result Value Ref Range eGFR 84 >=60 mL/min/1.73 m2 Additional lab tests: Imaging Results: 11/26/23 CT C/A/P IMPRESSION: 1. Development of left upper lobe predominant peribronchovascular nodules, some of which are cavitating, and associated smooth interlobular septal line thickening, supraclavicular, mediastinal, and hilar supraclavicular lymphadenopathy, and a small left pleural effusion with pleural thickening. Given that these findings are new since 10/02/2023, they are favored to represent an atypical infection such as a fungal infection. Vasculitis is a less likely differential consideration. Metastatic disease could have this [...] diverticulitis. 3. Improving hepatic and splenic abscesses. Additional diagnostic/procedure review: Assessment and Plan 63 y.o. female with PMH IBD (dx UC in 2022, c/f Crohn's now), adnexal mass, HTN, T2DM presenting asdirect admit from GI clinic for progressive weight loss. # Weight loss # Inflammatory Bowel Disease (UC vs CD) # Hx diverticulitis # Contained colonic perf Progressive 65 lb weight loss in 2023. Dx with UC in 2022, was previously on mesalamine suppository. Persistent daily diarrhea, wears pads, endorsing dawn discharge. Limited appetite, gets full quickly. Multiple admits this summer for sigmoid diverticulitis, treated non-operatively with antibiotics. Was most recently dc on 11/05 with 4 wks of cipro / flagyl. Direct admit from GI clinic with Dr. Jung. Presentation is concerning for possible IBD flare vs infectious process (spleen/liver) vs masseffect from adnexal mass. Her presentation is concerning for multiple ongoing disease processes. CTon 11/25 suggest that colonic perf is more 2/2 IBD rather than diverticulitis. Concern is that this d isease process may be affecting other parts of her clinical picture; splenic/liver abscesses may berelated, possibly seeded, from colonic perf. Weight loss/malnutrition may also be associated with mass effect from adnexal mass. Pt diarrhea has been improving, with solid stools, but may present another source of electrolyte/nutrition loss. Less likely sources of weight loss include adrenal/thyroid abnormalities in the setting of chronic inflammatory disease, which have been ruled out with lab tests. Pt has been clinically improving since admission, without abd pain and having decreased diarrhea. - MRI abdomen / pelvis 11/12 -- sigmoid diverticulitis w contained perf, superimposed mild inflammation in rectum /sigmoid. Scattered liver / spleen abscesses. R ovarian mass. Secondary hemochromatosis. - C-scope 11/12 -- diffuse severe inflamm in sigmoid colon. Pathology findings -- Colonic mucosa with mildly active chronic colitis (crypt distortion, cryptitis) - GI c/s: pending ID recommendations - ID c/s: fungal, mycobacterial, blood cx - RD consult - recommend IV thiamine, folic acid, B6 - Continue cipro / flagyl #Lung lesion Week of significant cough, CT Chest showing cavitaty pulm nodules with associated lymphadenopathy. Per ID, possible fungal/mycobacterial infection, sarcoid, vasculitis, malignancy also possible. 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 Pt has risk factor for opportunistic infection of acute malnutrition. Pt seen by I Pulrei, do not think this is malignancy and felt the CT chest did not have cavitation (vs air bronchograms). Pulm consulted, concern for infection, plan for bronch +/- biopsy. -AFB BCx -BCx - ngtd x48h -Fungal bcx x24h -serum/urine histo -blasto -cryptococcal - negative -continue cipro flagyl # Liver / spleen abscesses Scattered liver / spleen abscesses seen on 11/12 MRI, similar to prior imaging. Evaluated by IR during prior admission, deemed too small to drain. Will complicate potential initiation of Remicade. CT A/P showed decrease in size of abscesses, possibly controlled by antibiotic regimen. May need biopsyin future for treatment. Pt will likely not be able to initiate remicade. - continue cipro / flagyl for now as above - ID c/s: rec continue cipro/flagyl #Malnutrition #Acute weight loss Recent 65 pound weight loss (within 4 months). Decreased appetite, early satiety, chronic diarrhea/tenesmus. Nutrition consulted, with concerns for severe malnutrition - per nutrition recs - IV Thiamine 500 x3 doses -PO thiamine every day -Folic acid every day -MVI every day -Thiamine every day -Vit B6 every day #Hyponatremia Found to be hyponatremic on admission (130), decreased to 127. Pt asymptomatic, has hx of hyponatremia, encouraged by outpt doctors to drink electrolyte supplements. In past, responsive to IVF, thought to be 2/2 GI loss or dehydration. -Plan to work up - Urine lytes, urine osm, serum osm # Adnexal Mass Multiseptated cystic lesion appearing to arise from the right ovary measuring 16.4 x 11.6 x 14.2 cm, as described on 11/12 MRI. - Business Office Representative onc aware, suspect likely benign - If pursuing sigmoid colectomy, can simultaneously remove adnexal mass # HTN - continue losartan 25mg daily # T2DM - A1c 5.7%. SSI. - glucose 223 ovn - CTM Code - Full Diet - Regular DVT prophylaxis - Lovenox Dispo - TBD Michael Huizar PGY1 Cosigned by Suhail Alfredo MD at 11/28/2023 8:31 PM CDT Associated attestation - Suhail Alfredo MD - 11/28/2023 8:31 PM CDT Attending Documentation I have seen and examined the patient on 11/28/23. I agree with the findings and plan of care as documented in the resident's/fellow's note. 63F with IBD-Crohn's, adnexal mass, complicated diverticulitis? with contained perforation, HTN presented from GI clinic as direct admission for progressive weight loss and expedited workup. Evaluated by GI, ID, pulmonology (and interventional pulm) during admission. Underwent workup showing new left upper lobe predominant peribronchovascular nodules, some cavitating, with lymphadenopathy and small pleural effusion, and otherwise stable adnexal mass, improving hepatic/splenic fluid collections. Underwent bronchoscopy 11/27 with pulmonology. - Infectious workup pending - Pending workup, further multidisciplinary discussion regarding likely Crohn's disease - Continue outpatient cipro/flagyl for now - If bronchoscopy results without TB, can remove airborne precautions per IP Supplementary Attestation Today, I am treating the patient for CD lung nodules hepatic/splenic abscess which is in severe exacerbation, progression, or experiencing treatment side effects as evidenced by risk of sepsis ,as described in the note. Reviewed records from the following unique sources (external institutions or providers from different services): pulmonology. Discussed management of lung nodules with pulmonology. Discussed test interpretation of BAL with ID. Suhail Alfredo MD * Michael Huizar MD - 11/27/2023 7:56 AM CDT History and Physical Medicine Firm Subjective HPI: Ms. Darius Russo is a 63 y.o. female with PMH IBD (dx UC in 2022, c/f Crohn's now), adnexal mass, HTN, T2DM presenting as direct admit from GI clinic for progressive weight loss. Pt has had multiple admissions this summer with sigmoid diverticulitis thought to be complicated bycolonic microperforation. She was treated non-operatively with IV antibiotics, discharged with oralregimens. Most recently discharged on 11/05 with 4 weeks of cipro / flagyl. During these admissions,she was found to have large R adnexal mass as well as scattered liver / spleen abscesses. Evaluatedby IR and thought to be too small to drain. Business Office Representative onc evaluated, suspect that the mass is likely benign. She has continued to have persistent weight loss however, lost a total of 65 pounds in the past year. She has been treated with mesalamine suppository for her IBD and has not noted improvement. She continues to have multiple (>5) episodes of diarrhea per day, and is struggling with continence, and is wearing a pad consequently. She also is endorsing grayish rectal discharge. No fevers / chills/ abdominal pain. No nausea / vomiting. Endorses decreased appetite, getting full quickly. She alsohas had a cough for the last week, coupled with clear phlegm production. No CP or significant SOB. Endorsing chronic fatigue. Had an MRI and colonoscopy performed on 11/12 --> findings potentially concerning for Crohn's disease over UC. She was seen in GI clinic today and was directly admitted for coordination of care, consideration of starting Remicade vs operative management. VS on arrival as follows -- T 98.8F, HR 104, RR 18, BP 126/62, SpO2 100 on RA. Pt admitted to medicine [facility]. Overnight events: -NAEON -ID recs: appreciate, sent labs Plan for today: - interventional pulm consult - AFB/mycobacterial BC - ID c/s - GI c/s Past Medical History: Diagnosis Date Adrenal mass (HCC) Diabetes mellitus (HCC) Diverticulitis Hypertension Past Surgical History: Procedure Laterality Date CHOLECYSTECTOMY 08/2023 COLONOSCOPY 2021 TUBAL LIGATION Medications Prior to Admission Medication Sig Dispense Refill Last Dose acetaminophen 500 mg capsule Take 2 capsules (1,000 mg total) by mouth every 6 (six) hours as needed (pain) 30 tablet 0 11/24/2023 ciprofloxacin (CIPRO) 500 mg tablet Take 1 tablet (500 mg total) by mouth 2 (two) times a day 11/25/2023 cyanocobalamin (Vitamin B-12) 2,500 mcg tablet, sublingual Take 1 tablet (2,500 mcg total) by mouthdaily 11/25/2023 loperamide (IMODIUM) 2 mg capsule Take 1 capsule (2 mg total) by mouth 4 (four) times a day as needed for diarrhea 11/25/2023 losartan (COZAAR) 25 mg tablet Take 1 tablet (25 mg total) by mouth daily 11/25/2023 magnesium oxide 500 mg capsule Take by mouth daily 11/25/2023 mesalamine (CANASA) 1,000 mg suppository Insert 1 suppository (1,000 mg total) into the rectum nightly 30 suppository 0 Past Week metroNIDAZOLE (FLAGYL) 500 mg tablet Take 1 tablet (500 mg total) by mouth 2 (two) times a day 11/25/[address] (PROTONIX) 40 mg EC tablet Take 1 tablet (40 mg total) by mouth daily 11/25/2023 potassium chloride ER 10 mEq CR tablet Take 1 tablet/capsule (10 mEq total) by mouth daily 11/25/2023 ferrous sulfate 325 mg (65 mg of elemental iron) tablet Take 1 tablet (325 mg total) by mouth dailywith breakfast 30 tablet 11 Unknown UNABLE TO FIND IRON INFUSIONS PRN Allergies Allergen Reactions Azithromycin Rash Social History Tobacco Use Smoking status: Never Smokeless tobacco: Never Substance and Sexual Activity Drug use: Never Sexual activity: Defer Alcohol Use: Not At Risk (11/13/2023) AUDIT-C Frequency of Alcohol Consumption: Never Average Number of Drinks: Patient does not drink Frequency of Binge Drinking: Never Family History Problem Relation Age of Onset Diabetes Mother Emphysema Father Review of Systems All review of systems are negative except for as noted in HPI. Objective Vitals: 24hr Min/Max: Temp Min: 37 ??C (98.6 ??F) Max: 37.1 ??C (98.8 ??F) Pulse Min: 86 Max: 99 BP Min: 105/78 Max: 120/56 Resp Min: 18 Max: 18 SpO2 Min: 95 % Max: 97 % Most Recent Vitals: Vitals: 11/27/23 0410 BP: 110/52 Pulse: 86 Resp: 18 Temp: 37.1 ??C (98.8 ??F) SpO2: 95% No intake or output data in the 24 hours ending 11/27/23 0756 Physical Exam: General appearance: no acute distress HEENT: NCAT, MMM, anicteric Lungs: CTA on right, left side diminished lung sounds, no w/r/r, non-labored Heart: RRR, S1, S2 normal, no murmur, rub or gallop. JVP not elevated, no LE edema Abdomen: soft, mildly distended, nontender to palpation Extremities: extremities normal, warm and well-perfused, equal pulses Skin: warm and dry Neurologic: No abnormal movements, non-focal exam Lab/Radiology/Diagnostic Review: Recent Results (from the past 24 hour(s)) POCT glucose Collection Time: 11/26/23 9:06 AM Result Value Ref Range Glucose, POC 145 70 - 199 mg/dL POCT glucose Collection Time: 11/26/23 11:49 AM Result Value Ref Range Glucose, POC 198 70 - 199 mg/dL POCT glucose Collection Time: 11/26/23 5:27 PM Result Value Ref Range Glucose, POC 141 70 - 199 mg/dL Basic metabolic panel Collection Time: 11/26/23 9:58 PM Result Value Ref Range Sodium 127 (L) 135 - 145 mmol/L Potassium, pl 4.3 3.3 - 4.9 mmol/L Chloride 90 (L) 97 - 110 mmol/L CO2 26 22 - 32 mmol/L Anion gap 11 2 - 15 mmol/L BUN 19 6 - 25 mg/dL Creatinine 0.91 0.60 - 1.10 mg/dL Glucose 186 70 - 199 mg/dL Calcium 8.6 8.5 - 10.3 mg/dL CBC with auto differential Collection Time: 11/26/23 9:58 PM Result Value Ref Range WBC 20.6 (H) 3.8 - 9.9 K/cumm Hgb 8.4 (L) 11.9 - 15.5 g/dL Hct 27.2 (L) 35.6 - 45.5 % Plt 459 (H) 150 - 400 K/cumm MPV 9.2 9.1 - 12.3 fL RBC 3.31 (L) 3.90 - 5.20 M/cumm MCV 82.2 81.3 - 96.4 fL MCH 25.4 (L) 27.1 - 33.3 pg MCHC 30.9 (L) 32.3 - 35.7 g/dL RDW CV 17.9 (H) 11.1 - 14.9 % RDW SD 54.5 (H) 35.7 - 48.1 fL NRBC abs 0.00 0.00 - 0.01 K/cumm Magnesium Collection Time: 11/26/23 9:58 PM Result Value Ref Range Magnesium 1.8 1.4 - 2.5 mg/dL Phosphorus Collection Time: 11/26/23 9:58 PM Result Value Ref Range Phosphorus, pl 3.5 2.3 - 4.5 mg/dL Differential, auto Collection Time: 11/26/23 9:58 PM Result Value Ref Range Neutrophil abs 16.6 (H) 1.5 - 6.5 K/cumm Imm gran abs 0.2 (H) 0.0 - 0.1 K/cumm Lymphocyte abs 1.7 0.8 - 3.3 K/cumm Monocyte abs 2.0 (H) 0.2 - 0.8 K/cumm Eosinophil abs 0.0 0.0 - 0.5 K/cumm Basophil abs 0.1 0.0 - 0.1 K/cumm Neutrophil pct 80.6 % Imm gran pct 0.9 % Lymphocyte pct 8.3 % Monocyte pct 9.7 % Eosinophil pct 0.2 % Basophil pct 0.3 % eGFR Collection Time: 11/26/23 9:58 PM Result Value Ref Range eGFR 70 >=60 mL/min/1.73 m2 POCT glucose Collection Time: 11/26/23 10:20 PM Result Value Ref Range Glucose, POC 223 (H) 70 - 199 mg/dL HIV 1/2 Antibody plus p24 Antigen Blood Collection Time: 11/27/23 12:53 AM Specimen: Blood Result Value Ref Range HIV 1/2 ab + p24 ag Nonreactive Nonreactive Additional lab tests: Imaging Results: 11/26/23 CT C/A/P IMPRESSION: 1. Development of left upper lobe predominant peribronchovascular nodules, some of which are cavitating, and associated smooth interlobular septal line thickening, supraclavicular, mediastinal, and hilar supraclavicular lymphadenopathy, and a small left pleural effusion with pleural thickening. Given that these findings are new since 10/02/2023, they are favored to represent an atypical infection such as a fungal infection. Vasculitis is a less likely differential consideration. Metastatic disease could have this [...] diverticulitis. 3. Improving hepatic and splenic abscesses. Additional diagnostic/procedure review: Assessment and Plan 63 y.o. female with PMH IBD (dx UC in 2022, c/f Crohn's now), adnexal mass, HTN, T2DM presenting asdirect admit from GI clinic for progressive weight loss. # Weight loss # Inflammatory Bowel Disease (UC vs CD) # Hx diverticulitis Progressive 65 lb weight loss in 2023. Dx with UC in 2022, was previously on mesalamine suppository. Persistent daily diarrhea, wears pads, endorsing dawn discharge. Limited appetite, gets full quickly. Multiple admits this summer for sigmoid diverticulitis, treated non-operatively with antibiotics. Was most recently dc on 11/05 with 4 wks of cipro / flagyl. Direct admit from GI clinic with Dr. Jung. Presentation is concerning for possible IBD flare vs infectious process (spleen/liver) vs masseffect from adnexal mass. - MRI abdomen / pelvis 11/12 -- sigmoid diverticulitis w contained perf, superimposed mild inflammation in rectum /sigmoid. Scattered liver / spleen abscesses. R ovarian mass. Secondary hemochromatosis. - C-scope 11/12 -- diffuse severe inflamm in sigmoid colon. Pathology findings -- Colonic mucosa with mildly active chronic colitis (crypt distortion, cryptitis) - Concern pt actually has Crohn's disease rather than UC. Consideration of initiation of Remicade. Discuss w/ ID in am given liver / spleen abscesses. Hold mesalamine for now - If unable to initiate Remicade, can discuss sigmoid colectomy. [employer] Representative onc aware, will plan to removeovarian mass at same time - GI c/s: appreciate, rec BCx, CRP - order ESR, fecal calprotectin - RD consult - pending - Continue cipro / flagyl #Cavitary lung lesion Week of significant cough, CT Chest showing cavitaty pulm nodules with associated lymphadenopathy. Per ID, possible fungal/mycobacterial infection, sarcoid, vasculitis, malignancy also possible. Consult interventional pulm for possible bronch/biopsy. -AFB BCx -BCx - ngtd x24h -serum/urine histo -blasto -cryptococcal -continue cipro flagyl #Hyponatremia Found to be hyponatremic on admission (130), decreased to 127. Pt asymptomatic, has hx of hyponatremia, encouraged by outpt doctors to drink electrolyte supplements. In past, responsive to IVF, thought to be 2/2 GI loss or dehydration. -Plan to work up - Urine lytes, urine osm, serum osm # Liver / spleen abscesses Scattered liver / spleen abscesses seen on 11/12 MRI, similar to prior imaging. Evaluated by IR during prior admission, deemed too small to drain. Will complicate potential initiation of Remicade. CT A/P showed decrease in size of abscesses, possibly controlled by antibiotic regimen. May need biopsyin future for treatment. Pt will likely not be able to initiate remicade. - continue cipro / flagyl for now as above - ID c/s: rec continue cipro/flagyl # Adnexal Mass Multiseptated cystic lesion appearing to arise from the right ovary measuring 16.4 x 11.6 x 14.2 cm, as described on 11/12 MRI. - Business [employer] Representative onc aware, suspect likely benign - If pursuing sigmoid colectomy, can simultaneously remove adnexal mass # HTN - continue losartan 25mg daily # T2DM - A1c 5.7%. SSI. - glucose 223 ovn - CTM Code - Full Diet - Regular DVT prophylaxis - Lovenox Dispo - TBD Michael Huizar PGY1 Cosigned by Suhail Alfredo MD at 11/28/2023 8:27 PM CDT Associated attestation - Suhail Alfredo MD - 11/28/2023 8:27 PM CDT Attending Documentation I have seen and examined the patient on 11/27/2023. I agree with the findings and plan of care as documented in the resident's/fellow's note. Clinically stable. Initial bloodwork/urine sent. CTCAP with new left upper lobe predominant peribronchovascular nodules, some cavitating, with lymphadenopathy and small pleural effusion, and otherwise stable adnexal mass, improving hepatic/splenic fluid collections. Ongoing atypical infectious workup with ID. IP consulted for bronchoscopy, recommending bronchoscopy with general pulm. - Bronchoscopy 11/27 - Infectious workup pending - Pending workup, further multidisciplinary discussion regarding likely Crohn's disease - Continue outpatient cipro/flagyl for now Supplementary Attestation Today, I am treating the patient for CD, lung nodules, hepatic/splenic abscess which is in severe exacerbation, progression, or experiencing treatment side effects as evidenced by risk of sepsis , as described in the note. Reviewed records from the following unique sources (external institutions or providers from different services): pulm IP. Independently interpreted CTCAP which shows new left sided lung nodules. Discussed management of lung nodules with infectious disease, pulmnology. Suhail Alfredo MD * Michael Huizar MD - 11/26/2023 8:04 AM CDT History and Physical Medicine Firm Subjective HPI: Ms. Darius Russo is a 63 y.o. female with PMH IBD (dx UC in 2022, c/f Crohn's now), adnexal mass, HTN, T2DM presenting as direct admit from GI clinic for progressive weight loss. Pt has had multiple admissions this summer with sigmoid diverticulitis thought to be complicated bycolonic microperforation. She was treated non-operatively with IV antibiotics, discharged with oralregimens. Most recently discharged on 11/05 with 4 weeks of cipro / flagyl. During these admissions,she was found to have large R adnexal mass as well as scattered liver / spleen abscesses. Evaluatedby IR and thought to be too small to drain. [employer] Representative onc evaluated, suspect that the mass is likely benign. She has continued to have persistent weight loss however, lost a total of 65 pounds in the past year. She has been treated with mesalamine suppository for her IBD and has not noted improvement. She continues to have multiple (>5) episodes of diarrhea per day, and is struggling with continence, and is wearing a pad consequently. She also is endorsing grayish rectal discharge. No fevers / chills/ abdominal pain. No nausea / vomiting. Endorses decreased appetite, getting full quickly. She alsohas had a cough for the last week, coupled with clear phlegm production. No CP or significant SOB. Endorsing chronic fatigue. Had an MRI and colonoscopy performed on 11/12 --> findings potentially concerning for Crohn's disease over UC. She was seen in GI clinic today and was directly admitted for coordination of care, consideration of starting Remicade vs operative management. VS on arrival as follows -- T 98.8F, HR 104, RR 18, BP 126/62, SpO2 100 on RA. Pt admitted to [facility]. Overnight events: -NAEON -Pt having fecal incontinence with some solid -Persistent cough x1week Plan for today: - CT CAP with contrast for possible infection - Fecal/infectious labs - ID c/s - GI c/s Past Medical History: Diagnosis Date Adrenal mass (HCC) Diabetes mellitus (HCC) Diverticulitis Hypertension Past Surgical History: Procedure Laterality Date CHOLECYSTECTOMY 08/2023 COLONOSCOPY 2021 TUBAL LIGATION Medications Prior to Admission Medication Sig Dispense Refill Last Dose acetaminophen 500 mg capsule Take 2 capsules (1,000 mg total) by mouth every 6 (six) hours as needed (pain) 30 tablet 0 11/24/2023 ciprofloxacin (CIPRO) 500 mg tablet Take by mouth 2 (two) times a day 11/25/2023 cyanocobalamin (Vitamin B-12) 2,500 mcg tablet, sublingual Take 1 tablet (2,500 mcg total) by mouthdaily 11/25/2023 loperamide (IMODIUM) 2 mg capsule Take 1 capsule (2 mg total) by mouth 4 (four) times a day as needed for diarrhea 11/25/2023 losartan (COZAAR) 25 mg tablet Take 1 tablet (25 mg total) by mouth daily 11/25/2023 mesalamine (CANASA) 1,000 mg suppository Insert 1 suppository (1,000 mg total) into the rectum nightly 30 suppository 0 Past Week metroNIDAZOLE (FLAGYL) 500 mg tablet Take 1 tablet (500 mg total) by mouth 2 (two) times a day 11/25/[address] (PROTONIX) 40 mg EC tablet Take 1 tablet (40 mg total) by mouth daily 11/25/2023 potassium chloride ER 10 mEq CR tablet 11/25/2023 ergocalciferol (VITAMIN D) 50,000 unit capsule (Patient not taking: Reported on 11/25/2023) Unknown ferrous sulfate 325 mg (65 mg of elemental iron) tablet Take 1 tablet (325 mg total) by mouth dailywith breakfast 30 tablet 11 Unknown triamcinolone (KENALOG) 0.1 % paste (Patient not taking: Reported on 11/25/2023) Unknown UNABLE TO FIND IRON INFUSIONS PRN Allergies Allergen Reactions Azithromycin Rash Social History Tobacco Use Smoking status: Never Smokeless tobacco: Never Substance and Sexual Activity Drug use: Never Sexual activity: Defer Alcohol Use: Not At Risk (11/13/2023) AUDIT-C Frequency of Alcohol Consumption: Never Average Number of Drinks: Patient does not drink Frequency of Binge Drinking: Never Family History Problem Relation Age of Onset Diabetes Mother Emphysema Father Review of Systems All review of systems are negative except for as noted in HPI. Objective Vitals: 24hr Min/Max: Temp Min: 36.5 ??C (97.7 ??F) Max: 37.1 ??C (98.8 ??F) Pulse Min: 86 Max: 114 BP Min: 111/68 Max: 130/63 Resp Min: 18 Max: 18 SpO2 Min: 96 % Max: 100 % Most Recent Vitals: Vitals: 11/26/23 0725 BP: 121/56 Pulse: 86 Resp: 18 Temp: 36.5 ??C (97.7 ??F) SpO2: 96% Intake/Output Summary (Last 24 hours) at 11/26/2023 0805 Last data filed at 11/26/2023 0550 Gross per 24 hour Intake 150 ml Output -- Net 150 ml Physical Exam: General appearance: no acute distress HEENT: NCAT, MMM, anicteric Lungs: CTAB, no w/r/r, non-labored Heart: RRR, S1, S2 normal, no murmur, rub or gallop. JVP not elevated, no LE edema Abdomen: soft, mildly distended, nontender to palpation Extremities: extremities normal, warm and well-perfused, equal pulses Skin: warm and dry Neurologic: No abnormal movements, non-focal exam Lab/Radiology/Diagnostic Review: Recent Results (from the past 24 hour(s)) Respiratory pathogen panel Nasopharyngeal Collection Time: 11/25/23 9:40 PM Specimen: Nasopharyngeal Result Value Ref Range Influenza A RNA Not Detected Not Detected Influenza B RNA Not Detected Not Detected RSV RNA Not Detected Not Detected COVID-19 RNA Not Detected Not Detected Coronavirus 229E RNA Not Detected Not Detected Coronavirus HKU1 RNA Not Detected Not Detected Coronavirus NL63 RNA Not Detected Not Detected Coronavirus OC43 RNA Not Detected Not Detected Adenovirus DNA Not Detected Not Detected Metapneumovirus RNA Not Detected Not Detected Rhinovirus/Enterovirus RNA Not Detected Not Detected Parainfluenza 1 RNA Not Detected Not Detected Parainfluenza 2 RNA Not Detected Not Detected Parainfluenza 3 RNA Not Detected Not Detected Parainfluenza 4 RNA Not Detected Not Detected B. pertussis DNA Not Detected Not Detected B. parapertussis DNA Not Detected Not Detected C. pneumoniae DNA Not Detected Not Detected M. pneumoniae DNA Not Detected Not Detected POCT glucose Collection Time: 11/25/23 9:45 PM Result Value Ref Range Glucose, POC 147 70 - 199 mg/dL Basic metabolic panel Collection Time: 11/25/23 10:52 PM Result Value Ref Range Sodium 130 (L) 135 - 145 mmol/L Potassium, pl 4.6 3.3 - 4.9 mmol/L Chloride 95 (L) 97 - 110 mmol/L CO2 26 22 - 32 mmol/L Anion gap 9 2 - 15 mmol/L BUN 18 6 - 25 mg/dL Creatinine 0.81 0.60 - 1.10 mg/dL Glucose 128 70 - 199 mg/dL Calcium 8.7 8.5 - 10.3 mg/dL CBC without differential Collection Time: 11/25/23 10:52 PM Result Value Ref Range WBC 16.6 (H) 3.8 - 9.9 K/cumm Hgb 8.6 (L) 11.9 - 15.5 g/dL Hct 28.1 (L) 35.6 - 45.5 % Plt 430 (H) 150 - 400 K/cumm MPV 9.0 (L) 9.1 - 12.3 fL RBC 3.39 (L) 3.90 - 5.20 M/cumm MCV 82.9 81.3 - 96.4 fL MCH 25.4 (L) 27.1 - 33.3 pg MCHC 30.6 (L) 32.3 - 35.7 g/dL RDW CV 17.9 (H) 11.1 - 14.9 % RDW SD 54.2 (H) 35.7 - 48.1 fL NRBC abs 0.00 0.00 - 0.01 K/cumm Magnesium Collection Time: 11/25/23 10:52 PM Result Value Ref Range Magnesium 2.0 1.4 - 2.5 mg/dL Phosphorus Collection Time: 11/25/23 10:52 PM Result Value Ref Range Phosphorus, pl 3.0 2.3 - 4.5 mg/dL aPTT Collection Time: 11/25/23 10:52 PM Result Value Ref Range aPTT 36 28 - 38 sec Protime-INR Collection Time: 11/25/23 10:52 PM Result Value Ref Range PT 18.8 (H) 9.7 - 13.0 sec INR 1.72 (H) 0.90 - 1.20 Type and screen Collection Time: 11/25/23 10:52 PM Result Value Ref Range ABO Rh O Positive Maira, indirect Negative eGFR Collection Time: 11/25/23 10:52 PM Result Value Ref Range eGFR 81 >=60 mL/min/1.73 m2 C. difficile testing Stool Collection Time: 11/26/23 1:10 AM Specimen: Stool Result Value Ref Range GDH Result Negative Negative Toxin Result Negative Negative C. diff result Negative, free toxin Negative, free toxin C. diff interp Negative for toxigenic Clostridioides (Clostridium) difficile. Analysis was performed using a glutamate dehydrogenase antigen detection assay combined with a C. difficile toxin detection assay. Additional lab tests: Imaging Results: No results found. Additional diagnostic/procedure review: Assessment and Plan 63 y.o. female with PMH IBD (dx UC in 2022, c/f Crohn's now), adnexal mass, HTN, T2DM presenting asdirect admit from GI clinic for progressive weight loss. # Weight loss # Inflammatory Bowel Disease (UC vs CD) # Hx diverticulitis Progressive 65 lb weight loss in 2023. Dx with UC in 2022, was previously on mesalamine suppository. Persistent daily diarrhea, wears pads, endorsing dawn discharge. Limited appetite, gets full quickly. Multiple admits this summer for sigmoid diverticulitis, treated non-operatively with antibiotics. Was most recently dc on 11/05 with 4 wks of cipro / flagyl. Direct admit from GI clinic with Dr. Jung. Presentation is concerning for possible IBD flare vs infectious process (spleen/liver) vs masseffect from adnexal mass. - MRI abdomen / pelvis 11/12 -- sigmoid diverticulitis w contained perf, superimposed mild inflammation in rectum /sigmoid. Scattered liver / spleen abscesses. R ovarian mass. Secondary hemochromatosis. - C-scope 11/12 -- diffuse severe inflamm in sigmoid colon. Pathology findings -- Colonic mucosa with mildly active chronic colitis (crypt distortion, cryptitis) - Concern pt actually has Crohn's disease rather than UC. Consideration of initiation of Remicade. Discuss w/ ID in am given liver / spleen abscesses. Hold mesalamine for now - If unable to initiate Remicade, can discuss sigmoid colectomy. Business [employer] Representative onc aware, will plan to removeovarian mass at same time - GI c/s: appreciate, rec BCx, CRP - C.diff (-) - order ESR, fecal calprotectin - CT C/A/P with contrast for possible infection - RD consult - Continue cipro / flagyl # Liver / spleen abscesses Scattered liver / spleen abscesses seen on 11/12 MRI, similar to prior imaging. Evaluated by IR during prior admission, deemed too small to drain. Will complicate potential initiation of Remicade. - continue cipro / flagyl for now as above - CT C/A/P with contrast for possible infection - ID c/s: pending # Adnexal Mass Multiseptated cystic lesion appearing to arise from the right ovary measuring 16.4 x 11.6 x 14.2 cm, as described on 11/12 MRI. - Business Office Representative onc aware, suspect likely benign - If pursuing sigmoid colectomy, can simultaneously remove adnexal mass # HTN - continue losartan 25mg daily # T2DM - A1c 5.7%. SSI. Code - Full Diet - Regular DVT prophylaxis - Lovenox Dispo - TBD Michael Huizar PGY1 Cosigned by Suhail Alfredo MD at 11/26/2023 3:08 PM CDT documented in this encounter H&P Notes * Mau Trotter MD - 12/24/2023 11:17 AM CST I have reviewed the H&P, examined the patient, and endorse the findings as written. Plan of Care : Based on the above findings, I consider Darius Russo to be an acceptable risk for: Procedure(s): (MUTCH/ MCCOURTCOMBO) RESECTION LEFT COLON COLOSTOMY RESECTION TOTAL COLON END ILEOSTOMY HYSTERECTOMY ABDOMINAL SALPINGO-OOPHORECTOMY PLACEMENT PREOPERATIVE STENT - URETERAL Cosigned by Melissa Rhodes MD at 12/24/2023 12:03 PM STUDIO ARTIST IO ARTIST IO ARTIST Source Note - Renée Rendon MD - 12/02/2023 10:51 AM CDT Images from the original note were not included. TEAR DOWN MATCHER ONC CONSULT NOTE Bed: [id number] Pelvic bed: No Reason for consult: pelvic mass, possible colorectal surgery this admission 63 y.o. with complex cystic pelvic mass in the setting of diverticulitis and inflammatory bowel disease, admitted to hospital for FFT, with consult to gynecology for potential coordination ofsurgery w/ colorectal. Patient was recently admitted to the hospital on 10/01 with diverticulitis and microperforation. At that time colorectal surgery recommended nonoperative management with zosyn (10/02-10/03) and gave recommendations for po abx upon discharge; they also recommended GI consult for IBD workup and waiting at least 4 wks before operating on pelvic mass.GI team confirmed that most of their workup for this patient would be outpatient, including initiating treatment if indicated if patient was determined to have Chron's and not US. Stool studies were collected per GI request, and they also recommended MRE which showed evolving changes of sigmoid diverticulitis with contained perforation. Superimposed mild inflammation in the rectum and sigmoid and scatered abscesses throughout the liver and spleen, not significantly changed compared to 11/04/2023. Patient admitted with failure to thrive and CT C/A/P on 11/25 shows development of left upper lobenodules, favored to represent an atypical infections such as a fungal infection, worsening of contained perforation of the proximal sigmoid colon, improving hepatic and splenic abscesses. Primary team initiated infectious workup of lung findings. Histoplasma serologies negative but urine Ag pending. Mycobacterial cultures pending Because of these findings, patient can't start IFX for IBD. GI consulted with recommendation for colorectal surgery consult for consideration of diversion c olostomy +/- sigmoidectomy for her complicated Crohn's Disease.Given possibility of procedure, Business Office Representative Onc team consulted for possible coordination of surgery for mass removal. 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 Denies vaginal bleeding or discharge. Reports increased feeling of satiety and wonders if the mass plays a roll in that. 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 Past Medical History: Diagnosis Date Adrenal mass (HCC) Diabetes mellitus (HCC) Diverticulitis Hypertension Past Surgical History: Procedure Laterality Date CHOLECYSTECTOMY 08/2023 COLONOSCOPY 2021 TUBAL LIGATION OB History 2 Para 2 Term 2 AB Living 2 SAB IAB Ectopic Multiple Live Births Obstetric Comments Twins Current Facility-Administered Medications: acetaminophen (TYLENOL) tablet 650 mg, 650 mg, oral, Q4H PRN, Richmond Mcdonnell MD, 650 mg at 12/01/23 1751 al & mag hydroxide vvyxipihurn-ijcttznkmkvmhaf-ejlqcfcaj-nystatin (MAGIC MOUTHWASH) oral suspension 1-1-1-1 10 mL, 10 mL, swish & swallow, Q4H PRN, Michael Huizar MD benzonatate (TESSALON) capsule 100 mg, 100 mg, oral, TID PRN, Sabine Collier MD, 100 mg at1 0529 Carrier Fluids for Secondary Infusion - 0.9% Sodium Chloride, 30 mL, intravenous, PRN, Marlene Pierre MD ciprofloxacin (CIPRO) tablet 500 mg, 500 mg, oral, BID - special, Richmond Mcdonnell MD, 500 mg at 12/02/23 0529 dextrose gel in packet 15 g, 15 g, oral, Q15 Min PRN OR dextrose (D10W) 10% bolus 250 mL, 250 mL, intravenous, Q15 Min PRN, Richmond Mcdonnell MD enoxaparin (LOVENOX) syringe 40 mg, 40 mg, subcutaneous, Daily-2100, Michael Huizar MD, 40 mg at 12/01/232038 folic acid (FOLVITE) tablet 1 mg, 1 mg, oral, Daily, Michael Huizar MD, 1 mg at 12/02/23 08 glucagon injection 1 mg, 1 mg, intramuscular, Q30 Min PRN, Richmond Mcdonnell MD insulin lispro (HumaLOG, ADMELOG) 100 unit/mL injection 0-4 Units, 0-4 Units, subcutaneous, Nightly, Richmond Mcdonnell MD, 1 Units at 12/01/232038 insulin lispro (HumaLOG, ADMELOG) 100 unit/mL injection 0-5 Units, 0-5 Units, subcutaneous, TID with meals, Richmond Mcdonnell MD, 1 Units at 12/01/23 175 loperamide (IMODIUM) capsule 2 mg, 2 mg, oral, QID PRN, Michael Huizar MD losartan (COZAAR) tablet 25 mg, 25 mg, oral, Daily, Richmond Mcdonnell MD, 25 mg at 12/02/23 0838 metroNIDAZOLE (FLAGYL) tablet 500 mg, 500 mg, oral, BID, Richmond Mcdonnell MD, 500 mg at 12/02/23 0839 multivitamin with folic acid 400 mcg tablet 1 tablet, 1 tablet, oral, Daily, María Graham MD PhD, 1 tablet at 12/02/23 0840 ondansetron (ZOFRAN) injection 4 mg, 4 mg, intravenous, Q4H PRN, Richmond Mcdonnell MD pantoprazole DR (PROTONIX) extended release tablet 40 mg, 40 mg, oral, Daily, Richmond Mcdonnell MD, 40 mg at 12/02/23 0916 phenoL (CHLORASEPTIC) 1.4 % oral spray 1 spray, 1 spray, mouth/throat, Q4H PRN, Michael Huizar MD, 1 spray at 10/12/24 2058 polyethylene glycol (MIRALAX) packet 17 g, 17 g, oral, Daily PRN, Richmond Mcdonnell MD pyridoxine (VITAMIN B6) tablet 100 mg, 100 mg, oral, Daily, Michael Huizar MD, 100 mg at 12/02/23 0839 ramelteon (ROZEREM) tablet 8 mg, 8 mg, oral, Nightly PRN, Richmond Mcdonnell MD sodium chloride 0.9% flush 0.5-20 mL, 0.5-20 mL, intra-catheter, PRN, Marlene Pierre MD thiamine (VITAMIN B1) tablet 100 mg, 100 mg, oral, Daily, Michael Huizar MD, 100 mg at 12/02/23 0838 Allergies as of 11/25/2023 - Reviewed 11/25/2023 Allergen Reaction Noted Azithromycin Rash 02/17/2007 Family History Problem Relation Age of Onset Diabetes Mother Emphysema Father Social History Tobacco Use Smoking status: Never Smokeless tobacco: Never Substance and Sexual Activity Alcohol use: None Drug use: Never Sexual activity: Defer Labs: Recent Labs Lab Units 12/02/23 1207 12/02/23 0819 12/01/23 2146 12/01/23 0827 11/30/23 2255 11/29/23 2107 11/29/23 2051 11/29/23 0828 11/29/23 0046 WBC K/cumm -- -- 13.4* -- 17.2* -- 14.2* -- 17.2* HEMOGLOBIN g/dL -- -- 8.4* -- 8.3* -- 7.5* -- 8.0* HEMATOCRIT % -- -- 27.3* -- 27.5* -- 24.3* -- 27.2* PLATELETS K/cumm -- -- 519* -- 382 -- 443* -- 511* NEUTROS ABS K/cumm -- -- 10.2* -- 13.8* -- 11.0* -- 12.3* SODIUM mmol/L -- -- 134* -- 135 -- 131* -- 135 POTASSIUM PLASMA mmol/L -- -- 4.3 -- 3.9 -- 4.0 -- 4.3 CHLORIDE mmol/L -- -- 100 -- 100 -- 101 -- 101 CO2 mmol/L -- -- 25 -- 25 -- 24 -- 28 ANIONGAP mmol/L -- -- 9 -- 10 -- 6 -- 6 GLUCOSE mg/dL -- -- 168 -- 141 -- 163 -- 97 POC GLUCOSE MONITOR mg/dL 196 137 -- < > -- < > -- < > -- BUN SERUM mg/dL -- -- 13 -- 10 -- 12 -- 15 CREATININE mg/dL -- -- 0.78 -- 0.74 -- 0.86 -- 0.82 CALCIUM mg/dL -- -- 8.5 -- 8.4* -- 7.9* -- 8.4* ALBUMIN g/dL -- -- 2.6* -- 2.5* -- -- -- -- ALK PHOS Units/L -- -- -- -- 78 -- -- -- -- ALT Units/L -- -- -- -- 6* -- -- -- -- AST Units/L -- -- -- -- 16 -- -- -- -- BILIRUBIN TOTAL mg/dL -- -- -- -- 0.3 -- -- -- -- MAGNESIUM mg/dL -- -- -- -- 1.8 -- 1.7 -- 2.0 PHOSPHORUS PLASMA mg/dL -- -- 3.0 -- 3.0 -- 2.7 -- 3.5 < > = values in this interval not displayed. Imaging: CT C/AP from 11/26/23 Physical exam: Temp: [36.8 ??C (98.2 ??F)-36.9 ??C (98.4 ??F)] 36.9 ??C (98.4 ??F) Pulse: [93-102] 99 Resp: [18] 18 BP: (119-149)/(61-75) 119/61 General: NAD, mood appropriate Pulmonary: intermittent cough and non-labored Cardiovascular: Regular rate and rhythm Abdomen: soft, non-tender, distended without tympany . Mass palpated easily. Well healed lsc scars along upper abdomen Extremities: Warm and well perfused A/P: 63 y.o. with complex cystic pelvic mass in the setting of diverticulitis and inflammatory bowel disease. 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 Currently on PO Ciprofloxacin and FO flagyl - Plan for CRS assessment for possible colostomy/sigmoidectomy and if planning on doing so, secondary school registrar oncwill coordiante tandem mass resection. Discussed with secondary school registrar onc fellow Dr. Storm Business Office Representative Onc team: [phone] [employer] consult: [phone] 12/02/23 Renée Rendon MD, MS [employer] PGY-4 Cosigned by Betty Khan MD at 12/03/2023 4:52 PM CDT * Yo Perez MD - 12/24/2023 10:36 AM CST I have reviewed the H&P, examined the patient, and endorse the findings as written. Plan of Care : Based on the above findings, I consider Darius Russo to be an acceptable risk for: Procedure(s): (INOCENTECH/ MULUO) RESECTION LEFT COLON COLOSTOMY RESECTION TOTAL COLON END ILEOSTOMY HYSTERECTOMY ABDOMINAL SALPINGO-OOPHORECTOMY PLACEMENT PREOPERATIVE STENT - URETERAL IO ARTIST Source Note - Chris Ricci NP - 12/08/2023 2:36 PM CDT Images from the original note were not included. [facility] Preoperative Assessment and Planning Preoperative Evaluation Record Evaluation type/location: IPAP at [facility] Planned procedure site: Not Scheduled Date: 12/08/23 Anesthesia Evaluation Darius Russo is a 63 y.o. female Colon resection * No Diagnosis Codes entered * HISTORY HPI Darius Russo is a 63 y/o female with notable PMH of DM2, HTN, and recently diagnosed IBD (originally thought to be UC but is now more likely to be Crohn's) who has persistent colitis of her sigmoid colon with microperforation, multiple abscesses of the liver and spleen, left upper lobe lung lesions, pleural effusion, adnexal mass undergoing evaluation for L colon resection. Past Medical History Information obtained from: patient and chart. Information obtained during: In Person Neurological Pertinent negatives: seizures; neuromuscular disease; CVA/stroke; TIA; CEA; ICA stenosis; dementia/mild cognitive impairment and carotid artery stent Cardiovascular + Hypertension (unsure of home BP) + NC (12/03 Trops 770>1061>1176>509>373 after acute SVT 12/03. Suspect related to demand ischemia.) Date of last NC: 12/04/23. + Other arrhythmia (SVT this hospitalization) Pertinent negatives: CAD ; CABG ; valvular heart disease; valve replacement; atrial fibrillation; pacemaker/ICD; PVD; DVT/PE; negative for CHF; drug-eluting stent(s); bare metal stent(s) and coronaryangioplasty Respiratory Pertinent negatives: COPD; asthma; sleep apnea (ANISA); pulmonary hypertension; no O2 use outside thehospital; non-smoker and no tracheostomy Comments: 12/04/23 Pulmonary note: Final Diagnosis and Brief Pulmonary Hospital Course: Darius Russo is a 63 yo female with history of IBD, adnexal mass, complicated diverticulitis with contained perforation, and HTN who presented with weight loss and cough. Found to have leukocytosis and CT chest with FRANKLIN peribronchial opacities with septal thickening along with left pleural effusion and LLL collapse/atelectasis. Pulmonary consulted for evaluation of the opacities. Bronch with BAL and TBBX of lingula completed 11/27 showing neutrophil predominance, bacterial cultures negative, DFA negative, AFB stain negative, PNA PCR negative. Biopsies showed findings of organizing lung injury with differential diagnosis including infectious etiology, autoimmune, or drug lisa bryan. No malignancy seen, no fungal organisms seen on stain. Cytology negative for malignancy. PET CT was obtained and showed decrease in size of left-sided pulmonary opacities with mild FDG uptake and interval increase in cavitation suggestive of resolving infectious/inflammatory process. Specific Pulmonary Recommendations: - Follow up fungal cultures from BAL - Repeat CT chest in 3 months to evaluation resolution of FRANKLIN opacities Follow up: The patient does not require follow up with pulmonary. Hepatic / Heme + History of anemia Pertinent negatives: liver disease; history of thrombocytopenia and history of Maira positive Comments: multiple abscesses of the liver and spleen Gastrointestinal Pertinent negatives: GERD and hiatal hernia Renal / Pertinent negatives: renal disease; dialysis and nephrolithiasis Musculoskeletal/Pain Pertinent negatives: chronic pain; chronic opioid use and previous treatment for opioid use disorder Endocrine / Other + Diabetes mellitus - Diabetes type 2. Outpatient insulin use: none. Pt reported HgA1c: 5.7. Pt reported HgA1c date: 11/04/23. 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 Review of Systems + productive cough (since bronch, some clear phlegm, improving) + fever + previous transfusion (11/06/23 prbc) + vision loss (glasses) + diarrhea (2/2 surgical/hospitalization etiology, improving) + abdominal pain (2/2 surgical/hospitalization etiology) + unexpected wt change (over several months) Patient's weight: decreased, 65 lbs, Pertinent negatives: wheezing; SOB; recent cold/flu; chest pain; palpitations; orthopnea; pedal edema; PND; heavy menses; Sickle Cell disease/trait; transfusion reaction; melena/hematochezia; easy bruising; bleeding problems; syncope; dizziness; muscle weakness; chronic pain; numbness/tingling; hard of hearing; heartburn; nausea; dysphagia; dentures/partials; chipped/loose teeth and diaphoresis PAT Summary and Plans Cardiac risk classification of planned procedure: intermediate cardiac risk. Preoperative assessment status: complete. Initial preoperative evaluation discussed with: Abbe Baig MD Additional comments: Darius Russo is a 63 y.o. female who is being evaluated prior to undergoingan intermediate cardiac risk surgery. Revised Cardiac Risk Index factors are (none) for a total RCRI of 0 out of 6. Functional capacity is 4-6 METs. 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 Patient instructed to call CPAP for further instruction on any potential future medications or discharge medications not listed on her instructions if applicable. -->Discussed patient's trop elevations w/ CPAP attending - 12/03 Trops 770>1061>1176>509>373 after acute SVT episode 12/03. Suspect related to demand ischemia per primary team, ECG 2x 01/03 and on 01/04 performed, patient reports mets 4-6 and denies CP/LYONS. No further cardiology workup needed prior to surgery. IPAP Complete Preoperative evaluation performed by Chris Ricci NP on 12/08/23 at 2:56 PM. . Patient Active Problem List Diagnosis Date Noted Ulcerative pancolitis with complication (CMS/HCC) (HCC) 12/05/2023 Severe malnutrition (CMS/HCC) 11/27/2023 Consolidation of left upper lobe of lung (CMS/HCC) (HCC) 11/27/2023 Splenic abscess 11/26/2023 Pulmonary nodule 11/26/2023 Hepatic abscess 11/26/2023 Physical deconditioning 11/25/2023 Expressive aphasia 11/04/2023 History of chronic ulcerative colitis 10/27/2023 Adnexal mass 10/23/2023 Hypertension 10/20/2023 Type II diabetes mellitus (HCC) 10/20/2023 Diverticulitis of intestine 10/20/2023 Past Medical History: Diagnosis Date Adrenal mass (HCC) Diabetes mellitus (HCC) Diverticulitis Hypertension Past Surgical History: Procedure Laterality Date CHOLECYSTECTOMY 08/2023 COLONOSCOPY 2021 TUBAL LIGATION OB History 2 Para 2 Term 2 AB Living 2 SAB IAB Ectopic Multiple Live Births Obstetric Comments Twins Allergies Allergen Reactions Azithromycin Rash Med List Status: Nurse Complete Set By: Tania Person RN at 11/25/2023 7:27 PM Taking? Last Dose Start Date End Date Provider acetaminophen 500 mg capsule () 11/24/2023 11/06/23 12/06/23 Yajaira Ackerman MD Take 2 capsules (1,000 mg total) by mouth every 6 (six) hours as needed (pain) ciprofloxacin (CIPRO) 500 mg tablet 11/25/2023 -- -- Provider, MD Grabiel cyanocobalamin (Vitamin B-12) 2,500 mcg tablet, sublingual 11/25/2023 -- -- ProviderGrabiel MD ferrous sulfate 325 mg (65 mg of elemental iron) tablet Unknown 10/04/23 10/03/24 Renée Rendon MD Take 1 tablet (325 mg total) by mouth daily with breakfast loperamide (IMODIUM) 2 mg capsule 11/25/2023 -- -- ProviderGrabiel MD losartan (COZAAR) 25 mg tablet 11/25/2023 07/31/23 -- Grabiel Logan MD magnesium oxide 500 mg capsule 11/25/2023 -- -- Grabiel Logan MD mesalamine (CANASA) 1,000 mg suppository Past Week 10/08/23 -- Melissa Rhodes MD Insert 1 suppository (1,000 mg total) into the rectum nightly metroNIDAZOLE (FLAGYL) 500 mg tablet 11/25/2023 -- -- ProviderGrabiel MD pantoprazole DR (PROTONIX) 40 mg EC tablet 11/25/2023 09/30/23 -- ProviderGrabiel MD potassium chloride ER 10 mEq CR tablet 11/25/2023 10/30/23 -- Grabiel Logan MD UNABLE TO FIND -- -- -- Grabiel Logan MD Current Facility-Administered Medications: acetaminophen (TYLENOL) tablet 650 mg, 650 mg, oral, Q4H PRN, 650 mg at 12/06/232137 al & mag hydroxide vmtpuqxzcur-snulcgfiuogafmo-mjonmlazs-nystatin (MAGIC MOUTHWASH) oral suspension 1-1-1-1 15 mL, 15 mL, swish & spit, Q8H PRN, 15 mL at 12/07/23 1719 benzocaine-menthoL (CHLORASEPTIC) lozenge 1 lozenge, 1 lozenge, mouth/throat, Q2H PRN benzonatate (TESSALON) capsule 100 mg, 100 mg, oral, TID PRN, 100 mg at 12/08/23 1004 Carrier Fluids for Secondary Infusion - 0.9% Sodium Chloride, 30 mL, intravenous, PRN ciprofloxacin (CIPRO) tablet 500 mg, 500 mg, oral, BID - special, 500 mg at 12/08/23 0548 dextrose gel in packet 15 g, 15 g, oral, Q15 Min PRN OR dextrose (D10W) 10% bolus 250 mL, 250 mL, intravenous, Q15 Min PRN enoxaparin (LOVENOX) syringe 40 mg, 40 mg, subcutaneous, Daily-2100, 40 mg at 12/07/232052 folic acid (FOLVITE) tablet 1 mg, 1 mg, oral, Daily, 1 mg at 12/08/231003 glucagon injection 1 mg, 1 mg, intramuscular, Q30 Min PRN guaiFENesin ER (MUCINEX) extended release tablet 1,200 mg, 1,200 mg, oral, BID PRN, 1,200 mg at 12/07/232103 insulin lispro (HumaLOG, ADMELOG) 100 unit/mL injection 0-10 Units, 0-10 Units, subcutaneous, TID with meals, 2 Units at 12/06/23 115 insulin lispro (HumaLOG, ADMELOG) 100 unit/mL injection 0-5 Units, 0-5 Units, subcutaneous, Nightly, 1 Units at 12/07/23 223 losartan (COZAAR) tablet 25 mg, 25 mg, oral, Daily, 25 mg at 12/08/23 1004 metroNIDAZOLE (FLAGYL) tablet 500 mg, 500 mg, oral, BID, 500 mg at 12/08/23 100 multivitamin with folic acid 400 mcg tablet 1 tablet, 1 tablet, oral, Daily, 1 tablet at 12/08/23 1004 ondansetron (ZOFRAN) injection 4 mg, 4 mg, intravenous, Q4H PRN pantoprazole DR (PROTONIX) extended release tablet 40 mg, 40 mg, oral, Daily, 40 mg at 12/08/23 100 phenoL (CHLORASEPTIC) 1.4 % oral spray 1 spray, 1 spray, mouth/throat, Q4H PRN, 1 spray at polyethylene glycol (MIRALAX) packet 17 g, 17 g, oral, Daily PRN pyridoxine (VITAMIN B6) tablet 100 mg, 100 mg, oral, Daily, 100 mg at 12/08/23 1004 ramelteon (ROZEREM) tablet 8 mg, 8 mg, oral, Nightly PRN sodium chloride 0.9% flush 0.5-20 mL, 0.5-20 mL, intra-catheter, PRN, 10 mL at 12/07/23 0601 thiamine (VITAMIN B1) tablet 100 mg, 100 mg, oral, Daily, 100 mg at 12/08/23 1004 Social History Tobacco Use Smoking Status Never Smokeless Tobacco Never Alcohol Use: Not At Risk (11/13/2023) AUDIT-C Frequency of Alcohol Consumption: Never Average Number of Drinks: Patient does not drink Frequency of Binge Drinking: Never Substance and Sexual Activity Drug Use Never Family History Problem Relation Age of Onset Diabetes Mother Emphysema Father PAT Physical Exam Airway Exam: Mallampati: II Cervical ROM: FROM TM distance: normal Upper lip bite test class: 2 Cardiovascular Exam: Rate: regular Rhythm: regular Negative for Murmur No extra heart sounds appreciated Negative for peripheral edema JVD negative Negative for weak pulses Pulmonary Exam: LCTA, bilat EENT Exam: trachea midline Dental Exam: Appears intact Skin Exam: Skin is warm and dry. Capillary refill is < 3 seconds. Abdominal exam: Abdomen is soft. Current state: Patient's current state is cooperative and interactive. Relevant diagnostics: ECG(s): 12/04/23 Echocardiogram(s): N/A Stress test(s): N/A Cardiac catheterization(s): N/A PFT(s): N/A Vascular studies: 11/04/23 EXAMINATION: 1. Computed tomography angiography (CTA) of the head without and with contrast 2. Computed tomography angiography (CTA) of the neck with contrast 3. CT perfusion imaging of the head with contrast IMPRESSION: 1. No CT evidence of stroke. 2. No significant carotid artery stenosis. Other: 12/04/23 CXR 1 view IMPRESSION: Comparison is made to chest radiograph [...] of 12/04/2023. No pneumothorax. Stable cardiomediastinal silhouette. 12/04/23 PET/CT IMPRESSION: 1. Slight interval increase in size [...] in nature, although malignancy cannot be excluded. Vitals: 12/07/235 12/08/23 0223 12/08/23 0810 BP: 113/58 110/59 108/66 Pulse: 94 96 101 Resp: 18 18 18 Temp: 36.7 ??C (98.1 ??F) 36.5 ??C (97.7 ??F) 36.4 ??C (97.5 ??F) SpO2: 96% 98% 99% PT: 11/28/2023: 17.7 sec (H) INR: 11/28/2023: 1.62 (H) APTT: 11/28/2023: 30 sec Hgb A1C: No results found for requested labs within last 30 days. CBC RBC: 12/07/2023: 3.07 M/cumm (L) RDW: No results found for requested labs within last 30 days. MCHC: 12/07/2023: 29.9 g/dL (L) MCH: 12/07/2023: 25.4 pg (L) MCV: 12/07/2023: 85.0 fL Hct: 12/07/2023: 26.1 % (L) Hgb: 12/07/2023: 7.8 g/dL (L) WBC: 12/07/2023: 9.7 K/cumm MPV: 12/07/2023: 9.0 fL (L) Platelets: 12/07/2023: 487 K/cumm (H) RDW CV: 12/07/2023: 18.7 % (H) RDW Sd: 12/07/2023: 58.5 fL (H) BMP Glucose: 12/08/2023: 136 mg/dL Calcium: 12/07/2023: 8.3 mg/dL (L) Sodium: 12/07/2023: 136 mmol/L Potassium: 12/07/2023: 4.4 mmol/L CO2: 12/07/2023: 25 mmol/L Chloride: 12/07/2023: 102 mmol/L BUN: 12/07/2023: 14 mg/dL Creatinine: 12/07/2023: 0.82 mg/dL Short Blessed Total Score: 0 * Yo Perez MD - 12/24/2023 10:36 AM CST I have reviewed the H&P, examined the patient, and endorse the findings as written. Plan of Care : Based on the above findings, I consider Darius Russo to be an acceptable risk for: Procedure(s): (CHRIS/ JUAN CARLOS) RESECTION LEFT COLON COLOSTOMY RESECTION TOTAL COLON END ILEOSTOMY HYSTERECTOMY ABDOMINAL SALPINGO-OOPHORECTOMY PLACEMENT PREOPERATIVE STENT - URETERAL IO ARTIST Source Note - Vicki King MD - 12/02/2023 3:00 PM CDT [facility] Colorectal Surgery Consult Reason for Consult: IBD with microperf seeding to liver/spleen, severe weight loss/malnutrition, newly found lung lesions c/f infection, infliximab c/i Requesting Provider: Dr. Radford Patient Name: Darius Russo : 1960 Date of Consult: 12/03/23 Subjective Patient is a 63 y.o. female with chief complaint of Physical deconditioning HPI: Ms. Russo is a 63 y.o. female who was recently diagnosed with IBD in 2022 originally thought be UC and managed with mesalamine suppositories, DM, and HTN who was admitted to the hospital for expedited work up and due to significant weight loss in the past few months. She was originally diagnosed with IBD, thought to be UC, about one year ago when she originally presented with a perirectal abscess. It has been treated with mesalamine suppositories over that time but in August, she was admitted to the hospital with pain, fever, and a new pelvic mass. She underwent a lap CCK and went home. She then presented again to the hospital about a week later during which a CT demonstrated diverticulitis with microperforation. She presented again in September with persistent diverticulitis, again management nonoperative and discharged a few days later on Augmentin. She presented again on 11/03 with sepsis, and CT then demonstrated persistent inflammation as well as new abscess to the liver and spleen. She was discharged and then underwent a colonoscopy on 11/12 which demonstrated diffuse inflammation in the sigmoid and per endoscopy report, was more credit and collections representative of a Crohn's appearance. Most recently, she was seen in GI clinic on 11/24. In the setting of failure to thrive, weight loss of 20 pounds since September, she was sent to the hospital. The plan was to initially optimize medical management of her IBD as well as nutrionally optimize her, but CT on 11/25 demonstrated new left upper lobe predominant peribronchovascular nodules, some of which are cavitation ruling out the possibility of using anti-TNF drugs to treat her IBD. Etiology of lung lesions was started but complete workup will take a few weeks minimum. In the meantime, pt continues to have significant inflammation inher colon so colorectal surgery was consulted. Today, pt was in her in mild abdominal pain. She states that she loose bowel movements with tenesmus with passage of mucus requiring numerous trips to the restroom. She reports having low appetite and losing a significant amount of in the past several months. Past Medical History: Diagnosis Date Adrenal mass (HCC) Diabetes mellitus (HCC) Diverticulitis Hypertension Past Surgical History: Procedure Laterality Date CHOLECYSTECTOMY 08/2023 COLONOSCOPY 2021 TUBAL LIGATION Medications Prior to Admission Medication Sig Dispense Refill Last Dose acetaminophen 500 mg capsule Take 2 capsules (1,000 mg total) by mouth every 6 (six) hours as needed (pain) 30 tablet 0 11/24/2023 ciprofloxacin (CIPRO) 500 mg tablet Take 1 tablet (500 mg total) by mouth 2 (two) times a day 11/25/2023 cyanocobalamin (Vitamin B-12) 2,500 mcg tablet, sublingual Take 1 tablet (2,500 mcg total) by mouthdaily 11/25/2023 loperamide (IMODIUM) 2 mg capsule Take 1 capsule (2 mg total) by mouth 4 (four) times a day as needed for diarrhea 11/25/2023 losartan (COZAAR) 25 mg tablet Take 1 tablet (25 mg total) by mouth daily 11/25/2023 magnesium oxide 500 mg capsule Take by mouth daily 11/25/2023 mesalamine (CANASA) 1,000 mg suppository Insert 1 suppository (1,000 mg total) into the rectum nightly 30 suppository 0 Past Week metroNIDAZOLE (FLAGYL) 500 mg tablet Take 1 tablet (500 mg total) by mouth 2 (two) times a day 11/25/[address] (PROTONIX) 40 mg EC tablet Take 1 tablet (40 mg total) by mouth daily 11/25/2023 potassium chloride ER 10 mEq CR tablet Take 1 tablet/capsule (10 mEq total) by mouth daily 11/25/2023 ferrous sulfate 325 mg (65 mg of elemental iron) tablet Take 1 tablet (325 mg total) by mouth dailywith breakfast 30 tablet 11 Unknown UNABLE TO FIND IRON INFUSIONS PRN Allergies Allergen Reactions Azithromycin Rash Social History Tobacco Use Smoking status: Never Smokeless tobacco: Never Substance and Sexual Activity Drug use: Never Sexual activity: Defer Alcohol Use: Not At Risk (11/13/2023) AUDIT-C Frequency of Alcohol Consumption: Never Average Number of Drinks: Patient does not drink Frequency of Binge Drinking: Never Family History Problem Relation Age of Onset Diabetes Mother Emphysema Father Review of Systems: As noted in HPI Vitals: Arrival Vitals Temp 11/25/231953 37.1 ??C (98.8 ??F) Pulse 11/25/23 1830 104 Resp 11/25/231953 18 BP 11/25/23 1830 126/62 SpO2 11/25/23 1830 100 % Temp src 11/25/231953 Oral Heart Rate Source 11/25/231953 Pulse Oximetry Patient Position 11/25/231953 HOB 30 degrees BP Location 11/25/231953 Left arm FiO2 (%) 11/28/23 1023 100 % Most Recent : Vitals: 12/03/23 0300 BP: 128/62 Pulse: 91 Resp: 18 Temp: 36.6 ??C (97.9 ??F) SpO2: 97% Objective Physical exam: General: Lying in bed, conversation, well-developed Psych: alert and calm HEENT: normocephalic/atraumatic, anicteric Pulm: Normal work of breathing Cardiac: Regular rate and rhythm GI: abd soft, nondistended, mildly tender Neuro: ambulatory, non-focal Skin: warm and dry Musculoskeletal: no deformities Lab/Radiology/Diagnostic Review: Recent Labs Lab Units 12/03/23 0009 12/01/23 2146 11/30/23 2255 WBC K/cumm 12.5* 13.4* 17.2* HEMOGLOBIN g/dL 8.3* 8.4* 8.3* HEMATOCRIT % 28.2* 27.3* 27.5* PLATELETS K/cumm 481* 519* 382 Recent Labs Lab Units 12/03/23 0009 12/02/23 2047 12/02/23 1647 12/02/23 0819 12/01/23 2146 12/01/23 0827 11/30/23 2255 SODIUM mmol/L 134* -- -- -- 134* -- 135 CHLORIDE mmol/L 100 -- -- -- 100 -- 100 CO2 mmol/L 26 -- -- -- 25 -- 25 BUN SERUM mg/dL 16 -- -- -- 13 -- 10 CREATININE mg/dL 0.77 -- -- -- 0.78 -- 0.74 GLUCOSE mg/dL 140 -- -- -- 168 -- 141 POC GLUCOSE MONITOR mg/dL -- 216* 174 < > -- < > -- CALCIUM mg/dL 8.6 -- -- -- 8.5 -- 8.4* < > = values in this interval not displayed. Assessment /Plan 63 y.o. female with hx of DM, HTN, and recently diagnosed IBD (originally thought to be UC but is now more likely to be Crohn's) who has persistent colitis of her sigmoid colon with microperforation,multiple abscesses of the liver and spleen, and now new left upper lobe lung lesions, some of whichare cavitary. She is not a candidate for anti-TNF treatment in the setting of her lung lesions until etiology is determined. Pt also has a new pelvic mass that requires resection. In the setting of likely Crohn's diagnosis, persistent colitis with liver/spleen abscess, and new lung cavitary lesions precluding the use of certain Crohn's medical therapy, pt might benefit from a total abdominal colectomy. Of note, pt pathology was negative for granulomas so pt doesn't require negative pressure room for surgery. Will plan to start discussion with secondary school registrar onc to coordinate possible surgery. Colorectal surgery will continue to follow. Vicki King MD Cosigned by Yo Perez MD at 12/03/2023 2:19 PM CDT * Richmond Mcdonnell MD - 11/25/2023 9:58 PM CDT History and Physical Medicine Firm Subjective HPI: Ms. Darius Russo is a 63 y.o. female with PMH IBD (dx UC in 2022, c/f Crohn's now), adnexal mass, HTN, T2DM presenting as direct admit from GI clinic for progressive weight loss. Pt has had multiple admissions this summer with sigmoid diverticulitis thought to be complicated bycolonic microperforation. She was treated non-operatively with IV antibiotics, discharged with oralregimens. Most recently discharged on 11/05 with 4 weeks of cipro / flagyl. During these admissions,she was found to have large R adnexal mass as well as scattered liver / spleen abscesses. Evaluatedby IR and thought to be too small to drain. Business Office Representative onc evaluated, suspect that the mass is likely benign. She has continued to have persistent weight loss however, lost a total of 65 pounds in the past year. She has been treated with mesalamine suppository for her IBD and has not noted improvement. She continues to have multiple (>5) episodes of diarrhea per day, and is struggling with continence, and is wearing a pad consequently. She also is endorsing grayish rectal discharge. No fevers / chills/ abdominal pain. No nausea / vomiting. Endorses decreased appetite, getting full quickly. She alsohas had a cough for the last week, coupled with clear phlegm production. No CP or significant SOB. Endorsing chronic fatigue. Had an MRI and colonoscopy performed on 11/12 --> findings potentially concerning for Crohn's disease over UC. She was seen in GI clinic today and was directly admitted for coordination of care, consideration of starting Remicade vs operative management. VS on arrival as follows -- T 98.8F, HR 104, RR 18, BP 126/62, SpO2 100 on RA. Pt admitted to medicine firm. Past Medical History: Diagnosis Date Adrenal mass (HCC) Diabetes mellitus (HCC) Diverticulitis Hypertension Past Surgical History: Procedure Laterality Date CHOLECYSTECTOMY 08/2023 COLONOSCOPY 2021 TUBAL LIGATION Medications Prior to Admission Medication Sig Dispense Refill Last Dose acetaminophen 500 mg capsule Take 2 capsules (1,000 mg total) by mouth every 6 (six) hours as needed (pain) 30 tablet 0 11/24/2023 ciprofloxacin (CIPRO) 500 mg tablet Take by mouth 2 (two) times a day 11/25/2023 cyanocobalamin (Vitamin B-12) 2,500 mcg tablet, sublingual Take 1 tablet (2,500 mcg total) by mouthdaily 11/25/2023 loperamide (IMODIUM) 2 mg capsule Take 1 capsule (2 mg total) by mouth 4 (four) times a day as needed for diarrhea 11/25/2023 losartan (COZAAR) 25 mg tablet Take 1 tablet (25 mg total) by mouth daily 11/25/2023 mesalamine (CANASA) 1,000 mg suppository Insert 1 suppository (1,000 mg total) into the rectum nightly 30 suppository 0 Past Week metroNIDAZOLE (FLAGYL) 500 mg tablet Take 1 tablet (500 mg total) by mouth 2 (two) times a day 11/25/[address] (PROTONIX) 40 mg EC tablet Take 1 tablet (40 mg total) by mouth daily 11/25/2023 potassium chloride ER 10 mEq CR tablet 11/25/2023 ergocalciferol (VITAMIN D) 50,000 unit capsule (Patient not taking: Reported on 11/25/2023) Unknown ferrous sulfate 325 mg (65 mg of elemental iron) tablet Take 1 tablet (325 mg total) by mouth dailywith breakfast 30 tablet 11 Unknown triamcinolone (KENALOG) 0.1 % paste (Patient not taking: Reported on 11/25/2023) Unknown UNABLE TO FIND IRON INFUSIONS PRN Allergies Allergen Reactions Azithromycin Rash Social History Tobacco Use Smoking status: Never Smokeless tobacco: Never Substance and Sexual Activity Drug use: Never Sexual activity: Defer Alcohol Use: Not At Risk (11/13/2023) AUDIT-C Frequency of Alcohol Consumption: Never Average Number of Drinks: Patient does not drink Frequency of Binge Drinking: Never Family History Problem Relation Age of Onset Diabetes Mother Emphysema Father Review of Systems All review of systems are negative except for as noted in HPI. Objective Vitals: 24hr Min/Max: Temp Min: 36.7 ??C (98.1 ??F) Max: 37.1 ??C (98.8 ??F) Pulse Min: 100 Max: 114 BP Min: 111/68 Max: 126/59 Resp Min: 18 Max: 18 SpO2 Min: 97 % Max: 100 % Most Recent Vitals: Vitals: 11/25/231953 BP: 126/59 Pulse: 100 Resp: 18 Temp: 37.1 ??C (98.8 ??F) SpO2: 97% No intake or output data in the 24 hours ending 11/25/232158 Physical Exam: General appearance: no acute distress HEENT: NCAT, MMM, anicteric Lungs: CTAB, no w/r/r, non-labored Heart: RRR, S1, S2 normal, no murmur, rub or gallop. JVP not elevated, no LE edema Abdomen: soft, mildly distended, nontender to palpation Extremities: extremities normal, warm and well-perfused, equal pulses Skin: warm and dry Neurologic: No abnormal movements, non-focal exam Lab/Radiology/Diagnostic Review: Recent Results (from the past 24 hour(s)) POCT glucose Collection Time: 11/25/23 9:45 PM Result Value Ref Range Glucose, POC 147 70 - 199 mg/dL Additional lab tests: Imaging Results: No results found. Additional diagnostic/procedure review: Assessment and Plan 63 y.o. female with PMH IBD (dx UC in 2022, c/f Crohn's now), adnexal mass, HTN, T2DM presenting asdirect admit from GI clinic for progressive weight loss. # Weight loss # Inflammatory Bowel Disease (UC vs CD) # Hx diverticulitis Progressive 65 lb weight loss in 2023. Dx with UC in 2022, was previously on mesalamine suppository. Persistent daily diarrhea, wears pads, endorsing dawn discharge. Limited appetite, gets full quickly. Multiple admits this summer for sigmoid diverticulitis, treated non-operatively with antibiotics. Was most recently dc on 11/05 with 4 wks of cipro / flagyl. Direct admit from GI clinic with Dr. Jung. - MRI abdomen / pelvis 11/12 -- sigmoid diverticulitis w contained perf, superimposed mild inflammation in rectum /sigmoid. Scattered liver / spleen abscesses. R ovarian mass. Secondary hemochromatosis. - C-scope 11/12 -- diffuse severe inflamm in sigmoid colon. Pathology findings -- Colonic mucosa with mildly active chronic colitis (crypt distortion, cryptitis) - Concern pt actually has Crohn's disease rather than UC. Consideration of initiation of Remicade. Discuss w/ ID in am given liver / spleen abscesses. Hold mesalamine for now - If unable to initiate Remicade, can discuss sigmoid colectomy. Business Office Representative onc aware, will plan to removeovarian mass at same time - GI c/s in am - RD consult - Given that she has had oral antibiotics for last 2 months and persistent diarrhea, will check C diff - Continue cipro / flagyl # Liver / spleen abscesses Scattered liver / spleen abscesses seen on 11/12 MRI, similar to prior imaging. Evaluated by IR during prior admission, deemed too small to drain. Will complicate potential initiation of Remicade. - continue cipro / flagyl for now as above - ID c/s in am # Adnexal Mass Multiseptated cystic lesion appearing to arise from the right ovary measuring 16.4 x 11.6 x 14.2 cm, as described on 11/12 MRI. - Business Office Representative onc aware, suspect likely benign - If pursuing sigmoid colectomy, can simultaneously remove adnexal mass # HTN - continue losartan 25mg daily # T2DM - A1c 5.7%. SSI. Code - Full Diet - Regular DVT prophylaxis - Lovenox Dispo - TBD Richmond Mcdonnell MD PGY3 - Internal Medicine Cosigned by Suhail Alfredo MD at 11/26/2023 3:08 PM CDT Associated attestation - Suhail Alfredo MD - 11/26/2023 3:08 PM CDT Attending Documentation I have seen and examined the patient on 11/26/23. I agree with the findings and plan of care as documented in the resident's/fellow's note. 63F with IBD, adnexal mass, complicated diverticulitis? with contained perforation, HTN presented from GI clinic as direct admission for progressive weight loss and expedited workup. Progressive weight loss and abdominal fullness. Recent admissions for workup of adnexal mass and complicated diverticulitis and IBD. Ongoing workup with GI, GYNONC, and colorectal surgery. At recent admission, unable to drain anything per IR was treated with IV Zosyn, and discharged with outpatient ciprofloxacin/Flagyl course. Afterwards, [facility] concern for need for expedited workup as well as decision for infliximab vs. Surgery, and thus was recommended inpatient admission. Clinically stable on admission. Vitals stable. Worsened leukocytosis 16.6 compared to previous. [place] Nonsmoker, no alcohol, no drugs. Adherent to medications, including antibiotics and both iron tablets and IV iron infusions at local. # weight loss - maybe multifactorial, in setting of IBD (Crohn's), infection,?malignancy. # IBD - suspecting Crohn's over UC per GI - ID consult, GI private consult - HIV, ESR, CRP, fecal calprotectin, blood cultures - CTCAP with contrast - pending initial workup, multidisciplinary discussion for potential sampling and/or further diagnostics and subsequent management plan including potential surgical consult - RD consult # hepatic/splenic fluid collection - too small to drain at prior admission - ID consult - CTCAP with contrast to assess if new drainable target - for now, can continue outpatient Cipro/Flagyl # adnexal mass - per GYNONC previously, lower suspicion of malignant but looking for surgical management at some point in future # HTN - home losartan # iron deposition - stop giving IV iron Supplementary Attestation Today, I am treating the patient for weight loss, IBD which is in severe exacerbation, progression,or experiencing treatment side effects as evidenced by inpatient admission, infectious workup, consideration of surgery vs. biologic, as described in the note. Independently interpreted CT AP which shows large adnexal mass and fluid collections in liver and spleen. Discussed management of IBD with GI private. Discussed test interpretation of MRI with GI. Suhail Alfredo MD documented in this encounter Procedure Notes * Bin Joy, ABHAY - 12/27/2023 6:55 PM CST Vascular Access Nurse: Procedure Note Summary of treatment provided to patient today is as follows : . Bedside Procedure Time out/Checklist (Last 4 Hours) Pre-Op Checklist Row Name 12/27/23 1531 Patient Preparation Temp 36.6 ??C (97.9 ??F) -SR User Brown (r) = Recorded By, (t) = Taken By, (c) = Cosigned By Initials Name Larissa Jovel Vascular Access Documentation (Last 4 Hours) [facility] Additional Procedures Row Name 12/27/23 2868 Procedures Time in 1600 -LW Time out 1620 -LW Time Calculation (min) 20 min -LW Vascular Access Procedures Canceled on arrival -LW Peripheral IV 12/27/23 22 G Anterior;Proximal;Right Brachial IV Properties Placement Date: 12/27/23 -CT Placement Time: 1345 -CT Size (Gauge): 22 G -CT LocationOrientation: Anterior;Proximal;Right -CT Location: Brachial -CT Inserted by: CT -CT Insertion attempts: 1 -CT Patient Tolerance: Tolerated well -CT User Brown (r) = Recorded By, (t) = Taken By, (c) = Cosigned By Initials Name CT Wanda Belcher RN Bin Joy RN Plan: Follow up:IV obtained by floor. Bin Joy RN IO ARTIST * Ricky Vasquez MD - 11/28/2023 9:47 AM CDTAssociated Order(s): BRONCHOSCOPY [facility] Respiratory Care Patient Name: Darius Russo Procedure Date: 11/28/2023 9:47 AM Date of : 1960 Admit Type: Inpatient Age: 63 Room: [facility] Gender: Female Note Status: Finalized Procedure: Bronchoscopy Indications: Infiltrate Providers: Ricky Vasquez M.D., Marlene Pierre (Fellow) Referring MD: Medicines: Lidocaine 2% Nebulizer 4 mL, Lidocaine 2% applied to cords 4 mL, Lidocaine 1% subglottic space 20 mL, Midazolam 4 mg IV, Fentanyl 100 mcg IV Complications: No immediate complications Estimated Blood Loss: Estimated blood loss was minimal. Procedure: Pre-Anesthesia Assessment: - ASA Grade Assessment: III - A patient with severe systemic disease. - The anesthesia plan was to use moderate sedation/analgesia. Patient identification and proposed procedure were verified prior to the procedure by the physician and clinical staff in the exam room. The 6.0 mm bronchoscope (540) was introduced through the mouth, via the endotracheal tube (the patient was intubated for the procedure) and advanced to the tracheobronchial tree. The patient tolerated the procedure fairly well. The procedure was accomplished without difficulty. Findings: The endotracheal tube is in good position. The visualized portion of the trachea is of normal caliber. The marisol is sharp. The tracheobronchial tree was examined to at least the first subsegmental level. Bronchial mucosa and anatomy are normal; there are no endobronchial lesions, and no secretions. The bronchoscope was advanced until wedged at the desired location for bronchoalveolar lavage. BAL was performed in the [place] inferior lingular segment (B5) of the lung. 100 mL of fluid were instilled. 50 mL were returned. The return was blood-tinged. There were no mucoid plugs in the return fluid. Transbronchial biopsies of an area of infiltration were performed in the superior lingula segment of the left upper lobe and in the inferior lingula segment of the left upper lobe using alligator forceps and sent for histopathology examination. The procedure was guided by fluoroscopy. Transbronchial biopsy technique was selected because the sampling site was not visible endoscopically. Seven biopsy passes were performed. Six biopsy samples were obtained. Moderate Sedation: Conscious sedation note: I personally provided direct [id number] monitoring of conscious sedation administered by an independently trained respiratory therapist or nurse using fentanyl and versed for [...] 0 Note Initiated On: 11/28/2023 9:47 AM documented in this encounter Consult Notes * Vicki King MD - 12/02/2023 3:00 PM CDTAssociated Order(s): IP CONSULT TO COLORECTAL SURGERY [facility] Colorectal Surgery Consult Reason for Consult: IBD with microperf seeding to liver/spleen, severe weight loss/malnutrition, newly found lung lesions c/f infection, infliximab c/i Requesting Provider: Dr. Radford Patient Name: Darius Russo : 1960 Date of Consult: 12/03/23 Subjective Patient is a 63 y.o. female with chief complaint of Physical deconditioning HPI: Ms. Russo is a 63 y.o. female who was recently diagnosed with IBD in 2022 originally thought be UC and managed with mesalamine suppositories, DM, and HTN who was admitted to the hospital for expedited work up and due to significant weight loss in the past few months. She was originally diagnosed with IBD, thought to be UC, about one year ago when she originally presented with a perirectal abscess. It has been treated with mesalamine suppositories over that time but in August, she was admitted to the hospital with pain, fever, and a new pelvic mass. She underwent a lap CCK and went home. She then presented again to the hospital about a week later during which a CT demonstrated diverticulitis with microperforation. She presented again in September with persistent diverticulitis, again management nonoperative and discharged a few days later on Augmentin. She presented again on 11/03 with sepsis, and CT then demonstrated persistent inflammation as well as new abscess to the liver and spleen. She was discharged and then underwent a colonoscopy on 11/12 which demonstrated diffuse inflammation in the sigmoid and per endoscopy report, was more credit and collections representative of a Crohn's appearance. Most recently, she was seen in GI clinic on 11/24. In the setting of failure to thrive, weight loss of 20 pounds since September, she was sent to the hospital. The plan was to initially optimize medical management of her IBD as well as nutrionally optimize her, but CT on 11/25 demonstrated new left upper lobe predominant peribronchovascular nodules, some of which are cavitation ruling out the possibility of using anti-TNF drugs to treat her IBD. Etiology of lung lesions was started but complete workup will take a few weeks minimum. In the meantime, pt continues to have significant inflammation inher colon so colorectal surgery was consulted. Today, pt was in her in mild abdominal pain. She states that she loose bowel movements with tenesmus with passage of mucus requiring numerous trips to the restroom. She reports having low appetite and losing a significant amount of in the past several months. Past Medical History: Diagnosis Date Adrenal mass (HCC) Diabetes mellitus (HCC) Diverticulitis Hypertension Past Surgical History: Procedure Laterality Date CHOLECYSTECTOMY 08/2023 COLONOSCOPY 2021 TUBAL LIGATION Medications Prior to Admission Medication Sig Dispense Refill Last Dose acetaminophen 500 mg capsule Take 2 capsules (1,000 mg total) by mouth every 6 (six) hours as needed (pain) 30 tablet 0 11/24/2023 ciprofloxacin (CIPRO) 500 mg tablet Take 1 tablet (500 mg total) by mouth 2 (two) times a day 11/25/2023 cyanocobalamin (Vitamin B-12) 2,500 mcg tablet, sublingual Take 1 tablet (2,500 mcg total) by mouthdaily 11/25/2023 loperamide (IMODIUM) 2 mg capsule Take 1 capsule (2 mg total) by mouth 4 (four) times a day as needed for diarrhea 11/25/2023 losartan (COZAAR) 25 mg tablet Take 1 tablet (25 mg total) by mouth daily 11/25/2023 magnesium oxide 500 mg capsule Take by mouth daily 11/25/2023 mesalamine (CANASA) 1,000 mg suppository Insert 1 suppository (1,000 mg total) into the rectum nightly 30 suppository 0 Past Week metroNIDAZOLE (FLAGYL) 500 mg tablet Take 1 tablet (500 mg total) by mouth 2 (two) times a day 11/25/[address] (PROTONIX) 40 mg EC tablet Take 1 tablet (40 mg total) by mouth daily 11/25/2023 potassium chloride ER 10 mEq CR tablet Take 1 tablet/capsule (10 mEq total) by mouth daily 11/25/2023 ferrous sulfate 325 mg (65 mg of elemental iron) tablet Take 1 tablet (325 mg total) by mouth dailywith breakfast 30 tablet 11 Unknown UNABLE TO FIND IRON INFUSIONS PRN Allergies Allergen Reactions Azithromycin Rash Social History Tobacco Use Smoking status: Never Smokeless tobacco: Never Substance and Sexual Activity Drug use: Never Sexual activity: Defer Alcohol Use: Not At Risk (11/13/2023) AUDIT-C Frequency of Alcohol Consumption: Never Average Number of Drinks: Patient does not drink Frequency of Binge Drinking: Never Family History Problem Relation Age of Onset Diabetes Mother Emphysema Father Review of Systems: As noted in HPI Vitals: Arrival Vitals Temp 11/25/231953 37.1 ??C (98.8 ??F) Pulse 11/25/23 1830 104 Resp 11/25/231953 18 BP 11/25/23 1830 126/62 SpO2 11/25/23 1830 100 % Temp src 11/25/231953 Oral Heart Rate Source 11/25/231953 Pulse Oximetry Patient Position 11/25/231953 HOB 30 degrees BP Location 11/25/231953 Left arm FiO2 (%) 11/28/23 1023 100 % Most Recent : Vitals: 12/03/23 0300 BP: 128/62 Pulse: 91 Resp: 18 Temp: 36.6 ??C (97.9 ??F) SpO2: 97% Objective Physical exam: General: Lying in bed, conversation, well-developed Psych: alert and calm HEENT: normocephalic/atraumatic, anicteric Pulm: Normal work of breathing Cardiac: Regular rate and rhythm GI: abd soft, nondistended, mildly tender Neuro: ambulatory, non-focal Skin: warm and dry Musculoskeletal: no deformities Lab/Radiology/Diagnostic Review: Recent Labs Lab Units 12/03/23 00012/01/23214511/30/23 2255 WBC K/cumm 12.5* 13.4* 17.2* HEMOGLOBIN g/dL 8.3* 8.4* 8.3* HEMATOCRIT % 28.2* 27.3* 27.5* PLATELETS K/cumm 481* 519* 382 Recent Labs Lab Units 12/03/23 0009 12/02/23 2047 12/02/23 1647 12/02/2319 12/01/23214512/01/2382611/30/23 2255 SODIUM mmol/L 134* -- -- -- 134* -- 135 CHLORIDE mmol/L 100 -- -- -- 100 -- 100 CO2 mmol/L 26 -- -- -- 25 -- 25 BUN SERUM mg/dL 16 -- -- -- 13 -- 10 CREATININE mg/dL 0.77 -- -- -- 0.78 -- 0.74 GLUCOSE mg/dL 140 -- -- -- 168 -- 141 POC GLUCOSE MONITOR mg/dL -- 216* 174 < > -- < > -- CALCIUM mg/dL 8.6 -- -- -- 8.5 -- 8.4* < > = values in this interval not displayed. Assessment /Plan 63 y.o. female with hx of DM, HTN, and recently diagnosed IBD (originally thought to be UC but is now more likely to be Crohn's) who has persistent colitis of her sigmoid colon with microperforation,multiple abscesses of the liver and spleen, and now new left upper lobe lung lesions, some of whichare cavitary. She is not a candidate for anti-TNF treatment in the setting of her lung lesions until etiology is determined. Pt also has a new pelvic mass that requires resection. In the setting of likely Crohn's diagnosis, persistent colitis with liver/spleen abscess, and new lung cavitary lesions precluding the use of certain Crohn's medical therapy, pt might benefit from a total abdominal colectomy. Of note, pt pathology was negative for granulomas so pt doesn't require negative pressure room for surgery. Will plan to start discussion with secondary school registrar onc to coordinate possible surgery. Colorectal surgery will continue to follow. Vicki King MD Cosigned by Yo Perez MD at 12/03/2023 2:19 PM CDT Associated attestation - Yo Perez MD - 12/03/2023 2:19 PM CDT I have seen and examined the patient on 12/03/23. I agree with the findings and plan of care with the following modifications: Patient is feeling significantly better and is tolerating a diet. Given her significant weight loss that would be ideal to allow her nutritional status to improve. Given that she continues to improve clinically I think it would be best to give her 2-3 weeks of nutrition to improve her postoperative outcome. Obviously if her trajectory changes at any point in time we will adjust our plan and proceed with surgery at a sooner date. Patient and her are in agreement with this and would like to proceed in this fashion... * Renée Rendon MD - 12/02/2023 10:51 AM CDTAssociated Order(s): IP CONSULT TO WINE CELLAR WORKER Images from the original note were not included. TEAR DOWN MATCHER ONC CONSULT NOTE Bed: [id number] Pelvic bed: No Reason for consult: pelvic mass, possible colorectal surgery this admission 63 y.o. with complex cystic pelvic mass in the setting of diverticulitis and inflammatory bowel disease, admitted to hospital for FFT, with consult to gynecology for potential coordination ofsurgery w/ colorectal. Patient was recently admitted to the hospital on 10/01 with diverticulitis and microperforation. At that time colorectal surgery recommended nonoperative management with zosyn (10/02-10/03) and gave recommendations for po abx upon discharge; they also recommended GI consult for IBD workup and waiting at least 4 wks before operating on pelvic mass.GI team confirmed that most of their workup for this patient would be outpatient, including initiating treatment if indicated if patient was determined to have Chron's and not US. Stool studies were collected per GI request, and they also recommended MRE which showed evolving changes of sigmoid diverticulitis with contained perforation. Superimposed mild inflammation in the rectum and sigmoid and scatered abscesses throughout the liver and spleen, not significantly changed compared to 11/04/2023. Patient admitted with failure to thrive and CT C/A/P on 11/25 shows development of left upper lobenodules, favored to represent an atypical infections such as a fungal infection, worsening of contained perforation of the proximal sigmoid colon, improving hepatic and splenic abscesses. Primary team initiated infectious workup of lung findings. Histoplasma serologies negative but urine Ag pending. Mycobacterial cultures pending Because of these findings, patient can't start IFX for IBD. GI consulted with recommendation for colorectal surgery consult for consideration of diversion c olostomy +/- sigmoidectomy for her complicated Crohn's Disease.Given possibility of procedure, Business Office Representative Onc team consulted for possible coordination of surgery for mass removal. 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 Denies vaginal bleeding or discharge. Reports increased feeling of satiety and wonders if the mass plays a roll in that. 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 Past Medical History: Diagnosis Date Adrenal mass (HCC) Diabetes mellitus (HCC) Diverticulitis Hypertension Past Surgical History: Procedure Laterality Date CHOLECYSTECTOMY 08/2023 COLONOSCOPY 2021 TUBAL LIGATION OB History 2 Para 2 Term 2 AB Living 2 SAB IAB Ectopic Multiple Live Births Obstetric Comments Twins Current Facility-Administered Medications: acetaminophen (TYLENOL) tablet 650 mg, 650 mg, oral, Q4H PRN, Richmond Mcdonnell MD, 650 mg at 12/01/23 1751 al & mag hydroxide iqrpdqqwtkc-cbhejqqjfvpdhkt-hezykwotq-nystatin (MAGIC MOUTHWASH) oral suspension 1-1-1-1 10 mL, 10 mL, swish & swallow, Q4H PRN, Michael Huizar MD benzonatate (TESSALON) capsule 100 mg, 100 mg, oral, TID PRN, Sabine Collier, MD, 100 mg at1 05 Carrier Fluids for Secondary Infusion - 0.9% Sodium Chloride, 30 mL, intravenous, PRN, Marlene Pierre MD ciprofloxacin (CIPRO) tablet 500 mg, 500 mg, oral, BID - special, Richmond Mcdonnell MD, 500 mg at 12/02/23 05 dextrose gel in packet 15 g, 15 g, oral, Q15 Min PRN OR dextrose (D10W) 10% bolus 250 mL, 250 mL, intravenous, Q15 Min PRN, Richmond Mcdonnell MD enoxaparin (LOVENOX) syringe 40 mg, 40 mg, subcutaneous, Daily-2099, Michael Huizar MD, 40 mg at 12/01/232038 folic acid (FOLVITE) tablet 1 mg, 1 mg, oral, Daily, Michael Huizar MD, 1 mg at 12/02/23837 glucagon injection 1 mg, 1 mg, intramuscular, Q30 Min PRN, Richmond Mcdonnell MD insulin lispro (HumaLOG, ADMELOG) 100 unit/mL injection 0-4 Units, 0-4 Units, subcutaneous, Nightly, Richmond Mcdonnell MD, 1 Units at 12/01/232038 insulin lispro (HumaLOG, ADMELOG) 100 unit/mL injection 0-5 Units, 0-5 Units, subcutaneous, TID with meals, Richmond Mcdonnell MD, 1 Units at 12/01/23 175 loperamide (IMODIUM) capsule 2 mg, 2 mg, oral, QID PRN, Michael Huizar MD losartan (COZAAR) tablet 25 mg, 25 mg, oral, Daily, Richmond Mcdonnell MD, 25 mg at 12/02/23 0838 metroNIDAZOLE (FLAGYL) tablet 500 mg, 500 mg, oral, BID, Richmond Mcdonnell MD, 500 mg at 12/02/23 0839 multivitamin with folic acid 400 mcg tablet 1 tablet, 1 tablet, oral, Daily, María Graham MD PhD, 1 tablet at 12/02/23 0840 ondansetron (ZOFRAN) injection 4 mg, 4 mg, intravenous, Q4H PRN, Richmond Mcdonnell MD pantoprazole DR (PROTONIX) extended release tablet 40 mg, 40 mg, oral, Daily, Richmond Mcdonnell MD, 40 mg at 12/02/23 0916 phenoL (CHLORASEPTIC) 1.4 % oral spray 1 spray, 1 spray, mouth/throat, Q4H PRN, Michael Huizar MD, 1 spray at 11/29/23 205 polyethylene glycol (MIRALAX) packet 17 g, 17 g, oral, Daily PRN, Richmond Mcdonnell MD pyridoxine (VITAMIN B6) tablet 100 mg, 100 mg, oral, Daily, Michael Huizar MD, 100 mg at 12/02/23 0839 ramelteon (ROZEREM) tablet 8 mg, 8 mg, oral, Nightly PRN, Richmond Mcdonnell MD sodium chloride 0.9% flush 0.5-20 mL, 0.5-20 mL, intra-catheter, PRN, Marlene Pierre MD thiamine (VITAMIN B1) tablet 100 mg, 100 mg, oral, Daily, Michael Huizar MD, 100 mg at 12/02/23 0838 Allergies as of 11/25/2023 - Reviewed 11/25/2023 Allergen Reaction Noted Azithromycin Rash 02/17/2007 Family History Problem Relation Age of Onset Diabetes Mother Emphysema Father Social History Tobacco Use Smoking status: Never Smokeless tobacco: Never Substance and Sexual Activity Alcohol use: None Drug use: Never Sexual activity: Defer Labs: Recent Labs Lab Units 12/02/23 1207 12/02/23 0819 12/01/23 2146 12/01/23 0827 11/30/23 2255 11/29/23 2107 11/29/23 2051 11/29/23 0828 11/29/23 0046 WBC K/cumm -- -- 13.4* -- 17.2* -- 14.2* -- 17.2* HEMOGLOBIN g/dL -- -- 8.4* -- 8.3* -- 7.5* -- 8.0* HEMATOCRIT % -- -- 27.3* -- 27.5* -- 24.3* -- 27.2* PLATELETS K/cumm -- -- 519* -- 382 -- 443* -- 511* NEUTROS ABS K/cumm -- -- 10.2* -- 13.8* -- 11.0* -- 12.3* SODIUM mmol/L -- -- 134* -- 135 -- 131* -- 135 POTASSIUM PLASMA mmol/L -- -- 4.3 -- 3.9 -- 4.0 -- 4.3 CHLORIDE mmol/L -- -- 100 -- 100 -- 101 -- 101 CO2 mmol/L -- -- 25 -- 25 -- 24 -- 28 ANIONGAP mmol/L -- -- 9 -- 10 -- 6 -- 6 GLUCOSE mg/dL -- -- 168 -- 141 -- 163 -- 97 POC GLUCOSE MONITOR mg/dL 196 137 -- < > -- < > -- < > -- BUN SERUM mg/dL -- -- 13 -- 10 -- 12 -- 15 CREATININE mg/dL -- -- 0.78 -- 0.74 -- 0.86 -- 0.82 CALCIUM mg/dL -- -- 8.5 -- 8.4* -- 7.9* -- 8.4* ALBUMIN g/dL -- -- 2.6* -- 2.5* -- -- -- -- ALK PHOS Units/L -- -- -- -- 78 -- -- -- -- ALT Units/L -- -- -- -- 6* -- -- -- -- AST Units/L -- -- -- -- 16 -- -- -- -- BILIRUBIN TOTAL mg/dL -- -- -- -- 0.3 -- -- -- -- MAGNESIUM mg/dL -- -- -- -- 1.8 -- 1.7 -- 2.0 PHOSPHORUS PLASMA mg/dL -- -- 3.0 -- 3.0 -- 2.7 -- 3.5 < > = values in this interval not displayed. Imaging: CT C/AP from 11/26/23 Physical exam: Temp: [36.8 ??C (98.2 ??F)-36.9 ??C (98.4 ??F)] 36.9 ??C (98.4 ??F) Pulse: [93-102] 99 Resp: [18] 18 BP: (119-149)/(61-75) 119/61 General: NAD, mood appropriate Pulmonary: intermittent cough and non-labored Cardiovascular: Regular rate and rhythm Abdomen: soft, non-tender, distended without tympany . Mass palpated easily. Well healed lsc scars along upper abdomen Extremities: Warm and well perfused A/P: 63 y.o. with complex cystic pelvic mass in the setting of diverticulitis and inflammatory bowel disease. 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 Currently on PO Ciprofloxacin and FO flagyl - Plan for CRS assessment for possible colostomy/sigmoidectomy and if planning on doing so, secondary school registrar oncwill coordiante tandem mass resection. Discussed with secondary school registrar onc fellow Dr. Storm Business Office Representative Onc team: [phone] [employer] S[employer]ER consult: [phone] 12/02/23 Renée Rendon MD, MS F[employer] S[employer]ER PGY-4 Cosigned by Betty Khan MD at 12/03/2023 4:52 PM CDT Associated attestation - Betty Khan MD - 12/03/2023 4:52 PM CDT I have seen and examined the patient on 12/03/23. I agree with the findings and plan of care as documented in the resident's/fellow's note.. Will be available for possible co-case with colorectal surgery. Please let us know timing and we can consent the patient. * Marlene Pierre MD - 11/27/2023 4:41 PM CDTAssociated Order(s): IP CONSULT TO PULMONOLOGY Pulmonary Consult Subjective Patient is a 63 y.o. female with chief complaint of weight loss. Reason for Consult: Cavitary lesion concerning for atypical infection, bronchoscopy Requesting Provider: Suhail Alfredo MD HPI: Darius Russo is a 63 yo female with history of IBD, adnexal mass, complicated diverticulitis with contained perforation, and HTN who presented with weight loss and cough. Patient reports she has had 65 lbs weight loss since July along with abdominal fullness. She is currently undergoing work up with GI, Gynonc, and colorectal surgery. She has also developed a productive cough for the last week with clear sputum. She has not had any dyspnea, fevers, sick contacts, orrecent travel. Denies hemoptysis, night sweats. While she has a diagnosis of IBD she is not on any immunotherapies and is not immunosuppressed[place] or farm animals. She does not drink well water. Past Medical History: Diagnosis Date Adrenal mass (HCC) Diabetes mellitus (HCC) Diverticulitis Hypertension Past Surgical History: Procedure Laterality Date CHOLECYSTECTOMY 08/2023 COLONOSCOPY 2021 TUBAL LIGATION Medications Prior to Admission Medication Sig Dispense Refill Last Dose acetaminophen 500 mg capsule Take 2 capsules (1,000 mg total) by mouth every 6 (six) hours as needed (pain) 30 tablet 0 11/24/2023 ciprofloxacin (CIPRO) 500 mg tablet Take 1 tablet (500 mg total) by mouth 2 (two) times a day 11/25/2023 cyanocobalamin (Vitamin B-12) 2,500 mcg tablet, sublingual Take 1 tablet (2,500 mcg total) by mouthdaily 11/25/2023 loperamide (IMODIUM) 2 mg capsule Take 1 capsule (2 mg total) by mouth 4 (four) times a day as needed for diarrhea 11/25/2023 losartan (COZAAR) 25 mg tablet Take 1 tablet (25 mg total) by mouth daily 11/25/2023 magnesium oxide 500 mg capsule Take by mouth daily 11/25/2023 mesalamine (CANASA) 1,000 mg suppository Insert 1 suppository (1,000 mg total) into the rectum nightly 30 suppository 0 Past Week metroNIDAZOLE (FLAGYL) 500 mg tablet Take 1 tablet (500 mg total) by mouth 2 (two) times a day 11/25/[address] (PROTONIX) 40 mg EC tablet Take 1 tablet (40 mg total) by mouth daily 11/25/2023 potassium chloride ER 10 mEq CR tablet Take 1 tablet/capsule (10 mEq total) by mouth daily 11/25/2023 ferrous sulfate 325 mg (65 mg of elemental iron) tablet Take 1 tablet (325 mg total) by mouth dailywith breakfast 30 tablet 11 Unknown UNABLE TO FIND IRON INFUSIONS PRN Scheduled Meds:ciprofloxacin, 500 mg, oral, BID - special [Held by Provider] enoxaparin, 40 mg, subcutaneous, Daily-2100 insulin lispro, 0-4 Units, subcutaneous, Nightly insulin lispro, 0-5 Units, subcutaneous, TID with meals losartan, 25 mg, oral, Daily metroNIDAZOLE, 500 mg, oral, BID pantoprazole DR, 40 mg, oral, Daily Continuous Infusions: PRN Meds:. acetaminophen benzonatate dextrose OR dextrose glucagon ondansetron polyethylene glycol ramelteon Allergies Allergen Reactions Azithromycin Rash Social History Socioeconomic History Marital status: Spouse name: Not on file Number of children: Not on file Years of education: Not on file Highest education level: Not on file Occupational History Not on file Tobacco Use Smoking status: Never Smokeless tobacco: Never Substance and Sexual Activity Alcohol use: Not on file Drug use: Never Sexual activity: Defer Other Topics Concern Not on file Social History Narrative Not on file Social Determinants of Health Financial Resource Strain: Patient Unable To Answer (11/26/2023) Overall Financial Resource Strain (CARDIA) Difficulty of Paying Living Expenses: Patient unable to answer Food Insecurity: Patient Unable To Answer (11/26/2023) Hunger Vital Sign Worried About Running Out of Food in the Last Year: Patient unable to answer Ran Out of Food in the Last Year: Patient unable to answer Transportation Needs: Patient Unable To Answer (11/26/2023) PRAPARE - Transportation Lack of Transportation (Medical): Patient unable to answer Lack of Transportation (Non-Medical): Patient unable to answer Physical Activity: Not on file Stress: Not on file Social Connections: Patient Unable To Answer (11/26/2023) Social Connection and Isolation Panel [NHANES] Frequency of Communication with Friends and Family: Patient unable to answer Frequency of Social Gatherings with Friends and Family: Patient unable to answer Attends Faith Services: Patient unable to answer Active Member of Clubs or Organizations: Patient unable to answer Attends Club or Organization Meetings: Patient unable to answer Marital Status: Patient unable to answer Intimate Partner Violence: Not on file Housing Stability: Patient Unable To Answer (11/26/2023) Housing Stability Vital Sign Unable to Pay for Housing in the Last Year: Patient unable to answer Number of Times Moved in the Last Year: 0 Homeless in the Last Year: Patient unable to answer Family History Problem Relation Age of Onset Diabetes Mother Emphysema Father Review of Systems: Review of systems per HPI and otherwise all other systems are negative Objective Vitals: 24hr Min/Max: Temp Min: 36.7 ??C (98.1 ??F) Max: 37.1 ??C (98.8 ??F) Pulse Min: 86 Max: 99 BP Min: 110/52 Max: 120/56 Resp Min: 17 Max: 18 SpO2 Min: 95 % Max: 96 % Most Recent : Vitals: 11/27/23 0915 BP: 115/59 Pulse: 96 Resp: 17 Temp: 36.7 ??C (98.1 ??F) SpO2: 96% No intake or output data in the 24 hours ending 11/27/23 1705 Physical Exam: General: Lying in bed, NAD HEENT: Clear oropharynx, no lesions, MMM Cardiovascular: RRR no murmurs Chest: crackles on left, decreased left basilar lung sounds, clear on right Abdomen: soft, distended Extremity: WWP, no edema Skin: no rashes Lab/Radiology/Diagnostic Review: I have reviewed labs. Pertinent findings include: - Na 127, CO2 26, Cr 0.91, WBC 20.6, Hgb 8.4, plt 459, INR 1.7 - Blood cultures pending, cryptococcus negative, HIV negative Recent Results (from the past 24 hour(s)) POCT glucose Collection Time: 11/26/23 5:27 PM Result Value Ref Range Glucose, POC 141 70 - 199 mg/dL Basic metabolic panel Collection Time: 11/26/23 9:58 PM Result Value Ref Range Sodium 127 (L) 135 - 145 mmol/L Potassium, pl 4.3 3.3 - 4.9 mmol/L Chloride 90 (L) 97 - 110 mmol/L CO2 26 22 - 32 mmol/L Anion gap 11 2 - 15 mmol/L BUN 19 6 - 25 mg/dL Creatinine 0.91 0.60 - 1.10 mg/dL Glucose 186 70 - 199 mg/dL Calcium 8.6 8.5 - 10.3 mg/dL CBC with auto differential Collection Time: 11/26/23 9:58 PM Result Value Ref Range WBC 20.6 (H) 3.8 - 9.9 K/cumm Hgb 8.4 (L) 11.9 - 15.5 g/dL Hct 27.2 (L) 35.6 - 45.5 % Plt 459 (H) 150 - 400 K/cumm MPV 9.2 9.1 - 12.3 fL RBC 3.31 (L) 3.90 - 5.20 M/cumm MCV 82.2 81.3 - 96.4 fL MCH 25.4 (L) 27.1 - 33.3 pg MCHC 30.9 (L) 32.3 - 35.7 g/dL RDW CV 17.9 (H) 11.1 - 14.9 % RDW SD 54.5 (H) 35.7 - 48.1 fL NRBC abs 0.00 0.00 - 0.01 K/cumm Magnesium Collection Time: 11/26/23 9:58 PM Result Value Ref Range Magnesium 1.8 1.4 - 2.5 mg/dL Phosphorus Collection Time: 11/26/23 9:58 PM Result Value Ref Range Phosphorus, pl 3.5 2.3 - 4.5 mg/dL Differential, auto Collection Time: 11/26/23 9:58 PM Result Value Ref Range Neutrophil abs 16.6 (H) 1.5 - 6.5 K/cumm Imm gran abs 0.2 (H) 0.0 - 0.1 K/cumm Lymphocyte abs 1.7 0.8 - 3.3 K/cumm Monocyte abs 2.0 (H) 0.2 - 0.8 K/cumm Eosinophil abs 0.0 0.0 - 0.5 K/cumm Basophil abs 0.1 0.0 - 0.1 K/cumm Neutrophil pct 80.6 % Imm gran pct 0.9 % Lymphocyte pct 8.3 % Monocyte pct 9.7 % Eosinophil pct 0.2 % Basophil pct 0.3 % eGFR Collection Time: 11/26/23 9:58 PM Result Value Ref Range eGFR 70 >=60 mL/min/1.73 m2 POCT glucose Collection Time: 11/26/23 10:20 PM Result Value Ref Range Glucose, POC 223 (H) 70 - 199 mg/dL Blood culture Blood Collection Time: 11/27/23 12:53 AM Specimen: Blood Result Value Ref Range Report Preliminary Report: No growth to date. Blood culture Blood Collection Time: 11/27/23 12:53 AM Specimen: Blood Result Value Ref Range Report Preliminary Report: No growth to date. Cryptococcal Antigen, Serum Blood Collection Time: 11/27/23 12:53 AM Specimen: Blood Result Value Ref Range Cryptococcus ag, Serum Negative Negative HIV 1/2 Antibody plus p24 Antigen Blood Collection Time: 11/27/23 12:53 AM Specimen: Blood Result Value Ref Range HIV 1/2 ab + p24 ag Nonreactive Nonreactive POCT glucose Collection Time: 11/27/23 7:54 AM Result Value Ref Range Glucose, POC 141 70 - 199 mg/dL POCT glucose Collection Time: 11/27/23 11:45 AM Result Value Ref Range Glucose, POC 179 70 - 199 mg/dL I have independently reviewed radiology images: Pertinent findings include: CT chest w contrast: FRANKLIN peribronchial opacities with air bronchograms, no cavitations. There is septal thickening. Leftpleural effusion with LLL atelectasis and collapse. Right lung clear. Assessment/Plan Consolidation of left upper lobe of lung (CMS/HCC) (HCC) Assessment & Plan Darius Russo is a 63 yo female [...] infectious process given the distribution on imaging. Malignancy less likely given the appearance.Will plan for bronchoscopy with BAL and possible biopsy 11/27. - Bronchoscopy with BAL +/- biopsy 11/27 --- NPO at midnight --- hold anticoagulation/DVT ppx --- Please repeat CBC and coags in the morning --- give vitamin K for elevated INR of 1.7 - Follow up pending fungal serologies and blood cultures Pulmonary will continue to follow Cosigned by Ricky Vasquez MD at 11/27/2023 7:30 PM CDT Associated attestation - Ricky Vasquez MD - 11/27/2023 7:30 PM CDT Attending Documentation I have seen and examined the patient on 11/27/23. I agree with the findings and plan of care as documented in the resident's/fellow's note. Supplementary Attestation Today, I am treating the patient for pulmonary opacities of uncertain etiology in the setting of multiple co-morbidities as evidenced by CT scan, as described in the note. Independently interpreted test(s) including CT scan which shows interval development of peribronchovascular nodules in the left lung, worse in the upper lobe, without any cavitation cavitations. There is associated septal line thickening which may suggest lymphatic involvement. New small left pleural effusion with questionable pleural thickening. Subsegmental atelectasis in the right lower lobe. No pneumothorax. Discussed management of pulmonary opacities with fellow, resident and primary team. Discussed test interpretation of CT with fellow, resident. Ricky Vasquez MD * Sylvia Trujillo RD - 11/27/2023 3:34 PM CDTAssociated Order(s): IP CONSULT TO NUTRITION SERVICES NUTRITION ASSESSMENT Nutrition Status: Patient meets criteria for severe chronic malnutrition, reference AAIM (ASPEN) guidelines. Present on Admission: Yes REASON FOR ASSESSMENT: Consult/Referral - At Risk MST Score and Malnutrition Assessment Encounter Date: 11/27/23 3:34 PM Admission Date: 11/25/2023 LOS: 2 days HPI: Patient is a 63 y.o. female female PMH HTN, T2DM, s/p cholecystectomy, a large adnexal mass c/f malignancy, and suspected crohn???s colitis who presents for active colitis. Objective Past Medical History: Diagnosis Date Adrenal mass (HCC) Diabetes mellitus (HCC) Diverticulitis Hypertension Past Surgical History: Procedure Laterality Date CHOLECYSTECTOMY 08/2023 COLONOSCOPY 2021 TUBAL LIGATION Social History Tobacco Use Smoking status: Never Smokeless tobacco: Never Substance and Sexual Activity Drug use: Never Sexual activity: Defer Alcohol Use: Not At Risk (11/13/2023) AUDIT-C Frequency of Alcohol Consumption: Never Average Number of Drinks: Patient does not drink Frequency of Binge Drinking: Never MEDICATION/LAB REVIEW: Scheduled Meds: ciprofloxacin, 500 mg, oral, BID - special enoxaparin, 40 mg, subcutaneous, Daily-2100 insulin lispro, 0-4 Units, subcutaneous, Nightly insulin lispro, 0-5 Units, subcutaneous, TID with meals losartan, 25 mg, oral, Daily metroNIDAZOLE, 500 mg, oral, BID pantoprazole DR, 40 mg, oral, Daily Continuous Infusions: PRN Meds: acetaminophen benzonatate dextrose OR dextrose glucagon ondansetron polyethylene glycol ramelteon Recent Labs Lab Units 11/26/23215711/25/23 225 SODIUM mmol/L 127* 130* POTASSIUM PLASMA mmol/L 4.3 4.6 CHLORIDE mmol/L 90* 95* CO2 mmol/L 26 26 BUN SERUM mg/dL 19 18 CREATININE mg/dL 0.91 0.81 AMN-LED-VGCLKSS mL/min/1.73 m2 70 81 CALCIUM mg/dL 8.6 8.7 PHOSPHORUS PLASMA mg/dL 3.5 3.0 MAGNESIUM mg/dL 1.8 2.0 Recent Labs Lab Units 11/27/23 1145 11/27/23 0754 11/26/23 2220 11/26/23 2158 11/26/23 1727 11/26/23 1149 11/26/23 0906 GLUCOSE mg/dL -- -- -- 186 -- -- -- POC GLUCOSE MONITOR mg/dL 179 141 223* -- 141 198 145 No results found for: ALT , AST , BILIRUBIN , ALKPHOS , LIPASE Lab Results Component Value Date HGBA1C 5.7 (H) 11/04/2023 HDL 33 (L) 10/27/2023 LDLCALC 19 10/27/2023 CHOL 69 10/27/2023 TRIG 78 10/27/2023 NURSING ASSESSMENT: Last BM Date: 11/25/23 Bowel Sounds (All Quadrants): Active Juliano Scale Score: 19 Skin Integrity: Surgical incision Vital Signs BP: 115/59 Temp: 36.7 ??C (98.1 ??F) Pulse: 96 Resp: 17 SpO2: 96 % No intake or output data in the 24 hours ending 11/27/23 1534 Adult Malnutrition Scoring Tool (MST) What diet do you follow at home?: regular diet Have You Recently Lost Weight Without Trying?: Yes (Comment) How Much Weight Have You Lost?: 34 lb or more Have you been eating poorly because of a decreased appetite?: Yes Malnutrition Screening Tool (MST) Score: 5 Hunger Screen - Admission Within the past 12 months the food we bought just didn't last and we didn't have money to get more.: Never true Within the past 12 months we worried whether our food would run out before we got money to buy more.: Never true Within the past 12 months, you worried that your food would run out before you got the money to buymore.: Patient unable to answer Within the past 12 months, the food you bought just didn't last and you didn't have money to get more.: Patient unable to answer Anthropometrics Weight: 58.7 kg (129 lb 8 oz) Admission Weight : 58.7 kg Weight Change: 0.04 kg (0.10 lbs) IBW/kg (Calculated) : 47.6 kg Height: 154.9 cm (5' 1 ) Weight in (lb) to have BMI = 25: 132 BMI (Calculated): 24.5 Wt Readings from Last 10 Encounters: 11/26/23 58.7 kg (129 lb 8 oz) 11/25/23 58.2 kg (128 lb 3.2 oz) 11/13/23 63 kg (139 lb) 11/05/23 61.5 kg (135 lb 9.6 oz) 10/27/23 63 kg (139 lb) 10/23/23 63 kg (139 lb) 10/03/23 66.9 kg (147 lb 7.8 oz) 10/02/23 67.4 kg (148 lb 8 oz) ESTIMATED NEEDS: Weight Used for Equation Calculations (RD Determined): 58.7 kg (129 lb 6.6 oz) Total Kcal/kg Estimated Needs : 1761 Kcal/k. Type of Weight Used for Estimated Kcals: RD determined Total Protein Estimated Needs (gm): 70.49 Protein Needs Based on g/k.2 Type of Weight Used for Estimated Protein : Current Dietary Orders (From admission, onward) Start Ordered 11/27/23 1257 Adult Diet Regular Diet effective now Question: ([facility]) Diet type Answer: Regular 11/27/23 1256 11/26/23 2100 Bedtime snack At bedtime Comments: If bedtime BG is less than 100mg/dl, give patient a 15 gram carbohydrate snack. 11/25/23 2131 11/26/23 0700 Oral Nutrition Supplements Quantity (# of cans): 1 can; ([facility]) Select Supplement: Ensure High Protein - Vanilla All Meals Question Answer Comment Quantity (# of cans): 1 can ([facility]) Select Supplement: Ensure High Protein - Vanilla 11/26/23 0055 Allergies: Reviewed. IMPRESSION: Patient was 185 lbs, now admits at 125. Patient was 185 lbs in July, saw pictures of patient. Patient states she used to have 5-12 bowel movements a day but hasn't in a few weeks and she takes imodium (2mg) 3 x/day. Patient eats very small quantities however due to loss of appetite, feeling full orstarts to have a really bad cough (CT scan shows interval development of peribronchovascular nodules in the left lung). Patient absolutely will not drink ensure/boost shakes and does not care to try ensure clear or thrive or other products. Instead patient has tried Fairlife which she likes and protein bars which are 180 calories and 10gm of protein. Patient also trying to eat Larabars (5gm of protein and 220 calories). Patient's often cooks for her. She notes that she has a hard time getting protein in and that she likes breaded protein (fried cod filets, fried shrimp, breaded chicken etc) however the breading is too difficult to eat and similarly to bread, gets stuck in her throat. Dietary recall: Sometimes eats a handful of oatmeal with some milk on stove. 1 spoonful of peanut butter as snack 1 container (small) of brazilian yogurt) Creamed corn with 2 popcorn shrimp without breading. Today for lunch patient ate maybe 1 bite of potatoes and 1 bite of chicken without the breading, and 2 bites of a protein bar. AAIM ([facility]) MALNUTRITION ASSESSMENT: Date of completion: 11/27/2023 [facility]/AND Malnutrition Screening: Chronic illness or injury severe Subcutaneous Fat Loss Severity: Severe Muscle Mass Loss Severity: Severe Patient Meets Criteria for Severe Malnutrition: Yes NUTRITION FOCUSED PHYSICAL EXAM: Completed. Subcutaneous Fat Loss Orbital Region - Surrounding the Eye: Hollow look Upper Arm Region - Triceps/Biceps: Some depth pinch but not ample Muscle Loss Moravian Region - Temporalis Muscle: Slight depression Clavicle Bone Region - Pectoralis Major, Deltoid, Trapezius Muscles: Protruding, prominent bone Clavicle and Acromion Bone Region - Deltoid Muscle: Shoulder to arm joint looks square Anterior Thigh and Patellar Region - Quadricep Muscle: Depression along thigh Posterior Calf Region - Gastrocnemius Muscle: Thin, minimal to no muscle definition NUTRITION DIAGNOSIS: Nutrition Diagnosis 1: Protein-Calorie Malnutrition - Severe Related to: Chronic illness/injury Evidenced by: Physical finding INTERVENTION(S): Summary: Medical food supplement, Encouragement, Meals and snacks Patient meets for severe malnutrition and recommend loading dose of thiamine (500mg IV x 3 doses) then 100 mg tablet daily. +folic acid daily + MVI daily +B6 100 mg daily Patient agreeable to trying a [employer] 1.0 chocolate shake (pea protein) which has 325 calories and 18 gm of protein. However suspect patient wont be able to consume more than one of these. Patient admits she can't even eat 4 or 5 protein bars a day which she is trying to just consume one a day. Patient is hopeful that once the infection clears in her gut and lungs that she will eat better. This RD discussed that the time frame of when patient's appetite will improve is uncertain and would like to avoid further unintended weight loss this admission. It does not appear patient is malabsorbing anymore with antidiarrheals and this patient may require supplemental enteral nutrition while work up continues until patient can consume at least 50-60% of her energy needs on her own which she currently is not able to do. GOAL(S): Promote slow and steady weight gain 1/2 to 1 pound per week MONITORING/EVALUATION: Appetite, Discharge plans, I/O, Plan of care, Labs Sylvia Trujillo, MS RDN, [facility], * Lulú Dejesus DNP - 11/27/2023 12:01 PM CDTAssociated Order(s): CONSULT TO PULMONARY - INTERVENTIONAL New consult received and reviewed with Dr. Escamilla. Pt presented with bad pain, diarrhea and wt loss. Imaging noted a hep/spleen collection along with adnexal mass. There is a new pleural effusion seen on the L side with peribronch nodules with some cavitary areas in that L lung. We favor this to be inflammatory or infectious in nature, this is lesslikely a neoplasm. We have spoken to the primary team and will defer further mgmt to our Gen Pulm colleagues. We will reach out to gen pulm directly to close this loop. Cosigned by Bharathi Escaimlla Chi, MD at 11/27/2023 2:47 PM CDT * Laury Ievrson MD - 11/26/2023 12:20 PM CDTAssociated Order(s): CONSULT TO GENERAL INFECTIOUS DISEASE Infectious Disease Initial Consult Note Contact Information: Please see [facility] Treatment Team listing for up-to-date contact information. Requesting Physician: Suhail Alfredo MD Reason for Consult: Diagnostic and treatment recommendations, as well as assistance with follow up care. HPI: Darius Russo is a 63 y.o. female with a history of hypertension, type 2 diabetes, and inflammatory bowel disease who is admitted [facility] for progressive weight loss and nauseain the setting of multiple admissions for diverticulitis complicated by contained sigmoid perforation, scattered liver and spleen abscesses and adnexal mass. The patient was in her usual state of health until July when she developed intractable nausea leading to multiple admissions over the summer for sigmoid diverticulitis treated nonoperatively with multiple courses of antibiotics. She has lost approximately 65 lbs and describes rectal discharge throughout this course. She was seen in August after developing abdominal pain, fevers, and rigors. CT was notable for a large pelvic mass, cholelithiasis, urolithiasis, possible diverticulitis, possible cholecystitis. She was diagnosed with cholecystitis s/p laparoscopic cholecystectomy. She was discharged but then readmitted 09/25/2023 for diarrhea and weakness at which time she was diagnosed with sigmoid colitis and diverticulitis with microperforation treated with TMP SMX. However she presented again with abdominal distention and rectal discharge on 10/01. During this admission, the area of mural thickening and stranding of the sigmoid and descending colon was found anthony somewhat lessened after antibiotics and the area of microperforation had decreased from 2.6-1.7 cm. Colorectal surgery was consulted and recommended nonoperative management. The patient was started on piperacillin tazobactam while admitted and then discharged on p.o. antibiotics -- amoxicillin clavulanate 629076 mg q.8 hours and metronidazole 500 mg Q 12 hours plus 1 ds TMP SMX q.12 hours for ESBL UTI. She was discharged with a plan for evaluating the pelvic mass, MRA, and colonoscopy as an o utpatient. She was admitted again 11/04 after presenting with altered mental status and fever after being founddown in her bathroom with aphasia and confusion. CT abdomen pelvis from that admission was significant for perforated diverticulitis of the descending/sigmoid colon with contained perforation and newconcern for multiple hepatic and splenic abscesses with the known large cystic mass in the pelvis. Interventional radiology was consulted, but the abscesses were too small for drainage. She was againtreated with piperacillin tazobactam while hospitalized and discharged on metronidazole and ciprofloxacin. After discharge, she underwent colonoscopy and MRI with findings that shanika concern for Crohn's disease rather than ulcerative colitis. She was seen in GI clinic before this admission and directly admitted for coordination of care to consider infliximab versus operative management. Current Facility-Administered Medications Ordered in Epic Medication Dose Route Frequency Provider Last Rate Last Admin acetaminophen (TYLENOL) tablet 650 mg 650 mg oral Q4H PRN Richmond Mcdonnell MD benzonatate (TESSALON) capsule 100 mg 100 mg oral TID PRN Sabine Collier MD 100 mg at 11/26/23 0910 ciprofloxacin (CIPRO) tablet 500 mg 500 mg oral BID - special Richmond Mcdonnell MD 500mg at 11/26/23 0516 dextrose gel in packet 15 g 15 g oral Q15 Min PRN Richmond Mcdonnell MD Or dextrose (D10W) 10% bolus 250 mL 250 mL intravenous Q15 Min PRN Richmond Mcdonnell MD enoxaparin (LOVENOX) syringe 40 mg 40 mg subcutaneous Daily-2100 Louise Mendieta MD 40 mg at 11/25/232104 glucagon injection 1 mg 1 mg intramuscular Q30 Min PRN Richmond Mcdonnell MD insulin lispro (HumaLOG, ADMELOG) 100 unit/mL injection 0-4 Units 0-4 Units subcutaneous Nightly Richmond Mcdonnell MD insulin lispro (HumaLOG, ADMELOG) 100 unit/mL injection 0-5 Units 0-5 Units subcutaneous TID with meals Richmond Mcdonnell MD losartan (COZAAR) tablet 25 mg 25 mg oral Daily Richmond Mcdonnell MD 25 mg at 0 metroNIDAZOLE (FLAGYL) tablet 500 mg 500 mg oral BID Richmond Mcdonnell MD 500 mg at 11/26/23 09 ondansetron (ZOFRAN) injection 4 mg 4 mg intravenous Q4H PRN Richmond Mcdonnell MD pantoprazole DR (PROTONIX) extended release tablet 40 mg 40 mg oral Daily Richmond Mcdonnell MD 40 mg at 10/11/10 909 polyethylene glycol (MIRALAX) packet 17 g 17 g oral Daily PRN Richmond Mcdonnell MD ramelteon (ROZEREM) tablet 8 mg 8 mg oral Nightly PRN Richmond Mcdonnell MD No current Epic-ordered outpatient medications on file. Anti-infectives (From admission, onward) Start Dose/Rate Route Frequency Ordered Stop 11/26/23899 metroNIDAZOLE (FLAGYL) tablet 500 mg 500 mg oral 2 times daily 11/25/23211911/26/23599 ciprofloxacin (CIPRO) tablet 500 mg 500 mg oral 2 times daily (for quinolones,etc) 11/25/232119 Patient Allergies: Allergies Allergen Reactions Azithromycin Rash Social History Social History Narrative Not on file reports that she has never smoked. She has never used smokeless tobacco. She reports that she does not use drugs. Patient denies consuming alcoholic drinks. Family History: Family history reviewed and non-contributory Review of Systems: Review of Systems Objective Vitals: 24hr Min/Max: Temp Min: 36.5 ??C (97.7 ??F) Max: 37.1 ??C (98.8 ??F) Pulse Min: 86 Max: 104 BP Min: 121/56 Max: 130/63 Resp Min: 18 Max: 18 SpO2 Min: 96 % Max: 100 % Physical Exam: General: lying in bed, no acute distress but appears uncomfortable Eyes and Mouth: pupils are equal and round, sclera anicteric, Lungs: Breathing comfortably on room air. Clear to auscultation anteriorly Cardiac: normal rate, regular rhythm, no murmurs appreciated Abd: soft, nontender, nondistended, normoactive bowel sounds MSK: no joint swelling or effusions are noted. Skin: No lesions or rashes noted on exposed skin Neuro: Facial features are symmetric, speech is clear and fluent and appropriate. Access: IV site is clean/dry and intact Lab/Radiology/Diagnostic Review: I reviewed the following laboratory and imaging result(s). Micro: 10/03/2023 stool culture negative for pathogens 10/27/2023 T spot negative HBV surface antibody, core antibody, surface antigen all nonreactive HCV negative VZV IgG positive EBV nuclear antibody and IgG positive 11/24 respiratory viral pathogen panel negative C diff GDH/toxin negative Hematology/Chemistry: Na 130 Cl 95 BUN 18 K 4.6 CO2 26 Cr 0.81 Mg 2.0, G AST - ALT - Alk Phos - Ca 8.7 TP - Alb - Total Bili: - Direct Bili: - \ Hgb 8.6 / WBC 16.6 -------- Plt 430 / MCV 82.9 \ Lab Results Component Value Date HEPBSAB Nonreactive 10/27/2023 Lab Results Component Value Date HEPBCAB Nonreactive 10/27/2023 Lab Results Component Value Date HEPBSAG Nonreactive 10/27/2023 Lab Results Component Value Date HEPCAB Nonreactive 10/27/2023 Imagin11/14/2023 MRE 1. Evolving changes of sigmoid diverticulitis with [...] and bone marrow, compatible with secondary hemachromatosis. 11/26/2023 CT chest abdomen with contrast Chest: Right thyroid lobe goiter. New enlarged supraclavicular, mediastinal, and hilar lymph nodes. Interval development of peribronchovascular nodules in the left lung, worse in the upper lobe, one of which demonstrate central cavitations. For reference a peripheral nodule measures 2.4 centimeters, best seen on series 3 image 38. Associated septal line thickening. New small left pleural effusion with pleural thickening. Subsegmental atelectasis in the right lower lobe. No pneumothorax. Normal size heart. No pericardial effusion. Coronary artery calcifications. Atherosclerotic calcifications in the thoracic aorta. Normal esophagus. Abdomen/Pelvis: Several hepatic abscesses which have decreased [...] of gas representing a contained perforation. The stomach is normal. The small bowel is normal in course [...] such as a fungal infection. Vasculitis is a less likely differential consideration. Metastatic disease could have this [...] diverticulitis. 3. Improving hepatic and splenic abscesses. Assessment/Plan Darius Russo is a 63 y.o. female with a history of hypertension, type 2 diabetes, and inflammatory bowel disease who is admitted from [facility] for progressive weight loss and nauseain the setting of multiple admissions for diverticulitis complicated by contained sigmoid perforation, scattered liver and spleen abscesses and adnexal mass with imaging now showing new cavitating upper lobe nodules with associated lymphadenopathy. This patient has had a complicated course since August with multiple admissions for worsening failureto thrive likely due to her underlying inflammatory bowel disease complicated by perforation. Basedon her symptoms and the evolution of imaging it seems that despite multiple courses of antibiotics the perforation of the proximal sigmoid colon continues to worsen. I do have concern that her underlying inflammatory bowel disease is hindering her healing (rather than this being driven by infection). I also have concerns about starting infliximab in the setting of on characterize splenic and hepatic abscesses as well as the newly identified pulmonary nodules that are cavitating. Regarding the hepatic and splenic abscesses, these appear to be improving over time. It is possiblethat these are small pyogenic abscesses that were seeded during a transient bacteremia in the setting of her perforation. Although the presence of microabscesses raises higher concern for disseminated fungal or mycobacterial infection. Lastly, she has now developed a significant cough with imaging findings showing pulmonary nodules that are cavitating with associated lymphadenopathy. Fungal or mycobacterial infection to do night the splenic/hepatic abscesses and this new finding. She is not on immunosuppressive medications at this time; however, she likely does have some degree of immune dysfunction in the context of 65 lb weigh t loss and malnutrition. Tuberculosis is on the differential; however, she has no risk factors so will not obtain sputa x 3. Non-infectious etiologies include pulmonary sarcoid, vasculitis, or malignancy. - recommend mycobacterial blood cultures and regular blood cultures - if biopsy is performed, please send tissue for aerobic culture, anaerobic culture, fungal stain and culture, AFB stain, mycobacterial culture - serum cryptococcal antigen, serum blasto antibody, serum histo antibody, urine histo antigen - HIV Ag/Ab test - agree with continuing ciprofloxacin 500 mg p.o. b.i.d. and metronidazole 500 mg b.i.d. Laury Iverson MD MS Infectious Diseases Team 4 Thankyou for the opportunity to participate in the care of your patient. Please chat message in [employer] or call the ID team 4 attending with any questions or concerns at [phone] during daytime hours. If there is an emergency after hours then the ID fellow consular officer can be reached at [phone]. Supplementary Attestation Medical Decision Making: Today, I am treating the patient for hepatic/splenic abscesses, colonic perforation complicated by phlegmon, cavitating pulmonary nodules with associated lymphadenopathy which can cause in the short-term future in the absence of appropriate treatment, as described in the note. My total encounter time on 11/25/2023 was 74 minutes which was spent in the activities documented inthe note. This includes time spent prior to the seeing the patient and after the seeing the patientin direct care. This time does not include time spent in any separately reportable services. * Fernando Dooley MD - 11/26/2023 8:16 AM CDTAssociated Order(s): IP CONSULT TO GASTROENTEROLOGY Private GI Initial Consult Chief complaint: weight loss, diarrhea Reason for consult: colitis Requesting provider: Richmond Mcdonnell MD; [employer] HPI: This is a 63 y.o. female PMH HTN, T2DM, s/p cholecystectomy, a large adnexal mass c/f malignancy, and suspected crohn???s colitis who presents for active colitis. IBD history: Pt with symptoms of abdominal pain, diarrhea, weight loss for over a year now. OSH Colonoscopy in 2022 with rectal/sigmoid inflammatory changes and biopsies showing colitis and granulomas; she was diagnosed with UC at the time and started on mesalamine without relief . Also had abscess in groin which was drained around this time. More recently, she was admitted in September for CT findings of L-sided colitis with microperforation which was thought to be 2/2 complicated diverticulitis at the time. She was also admitted in October briefly for progressive symptoms and shock with interval imaging demonstrating microabscesses throughout the liver/spleen and she has been on oral cipro/flagyl sincethat time. Colonoscopy on 11/12 noted severe inflammation of the rectum, the colon, and stool at thesplenic flexure; path with mildly active chronic colitis. She's lost over 60# over the past year and has remained adherent to her mesalamine suppository without improvement. She's having 5-12 BM per day wih occasional blood mixed in and has had difficultieswith continence. She was seen in Dr. Jung's IBD clinic on 11/24 with progressive symptoms and failure to thrive and she was directly admitted as a result. Tachy on presentation but VS otherwise normal. Work-up here notable for hypoNa, leukocytosis to 16.6, Hgb 8.6, plt 430, INR 1.7, RVP unremarkable, C. Diff negative. Past Medical History: Diagnosis Date Adrenal mass (HCC) Diabetes mellitus (HCC) Diverticulitis Hypertension Past Surgical History: Procedure Laterality Date CHOLECYSTECTOMY 08/2023 COLONOSCOPY 2021 TUBAL LIGATION Medications Prior to Admission Medication Sig Dispense Refill Last Dose acetaminophen 500 mg capsule Take 2 capsules (1,000 mg total) by mouth every 6 (six) hours as needed (pain) 30 tablet 0 11/24/2023 ciprofloxacin (CIPRO) 500 mg tablet Take by mouth 2 (two) times a day 11/25/2023 cyanocobalamin (Vitamin B-12) 2,500 mcg tablet, sublingual Take 1 tablet (2,500 mcg total) by mouthdaily 11/25/2023 loperamide (IMODIUM) 2 mg capsule Take 1 capsule (2 mg total) by mouth 4 (four) times a day as needed for diarrhea 11/25/2023 losartan (COZAAR) 25 mg tablet Take 1 tablet (25 mg total) by mouth daily 11/25/2023 mesalamine (CANASA) 1,000 mg suppository Insert 1 suppository (1,000 mg total) into the rectum nightly 30 suppository 0 Past Week metroNIDAZOLE (FLAGYL) 500 mg tablet Take 1 tablet (500 mg total) by mouth 2 (two) times a day 11/25/[address] (PROTONIX) 40 mg EC tablet Take 1 tablet (40 mg total) by mouth daily 11/25/2023 potassium chloride ER 10 mEq CR tablet 11/25/2023 ergocalciferol (VITAMIN D) 50,000 unit capsule (Patient not taking: Reported on 11/25/2023) Unknown ferrous sulfate 325 mg (65 mg of elemental iron) tablet Take 1 tablet (325 mg total) by mouth dailywith breakfast 30 tablet 11 Unknown triamcinolone (KENALOG) 0.1 % paste (Patient not taking: Reported on 11/25/2023) Unknown UNABLE TO FIND IRON INFUSIONS PRN Allergies Allergen Reactions Azithromycin Rash Social History Tobacco Use Smoking status: Never Smokeless tobacco: Never Substance and Sexual Activity Drug use: Never Sexual activity: Defer Alcohol Use: Not At Risk (11/13/2023) AUDIT-C Frequency of Alcohol Consumption: Never Average Number of Drinks: Patient does not drink Frequency of Binge Drinking: Never Family History Problem Relation Age of Onset Diabetes Mother Emphysema Father Review of Systems: Review of systems per HPI and otherwise all other systems are negative Vitals: 24hr Min/Max: Temp Min: 36.5 ??C (97.7 ??F) Max: 37.1 ??C (98.8 ??F) Pulse Min: 86 Max: 114 BP Min: 111/68 Max: 130/63 Resp Min: 18 Max: 18 SpO2 Min: 96 % Max: 100 % Most Recent : Vitals: 11/26/23 0725 BP: 121/56 Pulse: 86 Resp: 18 Temp: 36.5 ??C (97.7 ??F) SpO2: 96% I/O last 2 completed shifts: In: 150 [P.O.:150] Out: - No intake/output data recorded. Objective Physical exam: Constitutional: NAD. In bed. Eyes: EOMI grossly intact. Anicteric ENT: NCAT. moist mucus membranes. Lungs: Breathing comfortably on RA. Unlabored. Trachea midline. Cardiovascular: RRR, normal S1 and S2. GI: Soft, NT, ND Skin: No new rashes, lesions or bruises Extremities: Normal without edema or cyanosis Neuro: Alert. MAEW. Lab/Radiology/Diagnostic Review: Recent Labs Lab Units 11/25/23 2252 11/25/23 2145 WBC K/cumm 16.6* -- HEMOGLOBIN g/dL 8.6* -- HEMATOCRIT % 28.1* -- PLATELETS K/cumm 430* -- SODIUM mmol/L 130* -- POTASSIUM PLASMA mmol/L 4.6 -- CHLORIDE mmol/L 95* -- CO2 mmol/L 26 -- ANIONGAP mmol/L 9 -- GLUCOSE mg/dL 128 -- POC GLUCOSE MONITOR mg/dL -- 147 BUN SERUM mg/dL 18 -- CREATININE mg/dL 0.81 -- CALCIUM mg/dL 8.7 -- INR 1.72* -- Results for orders placed during the hospital encounter of 11/13/23MRI Abdomen Pelvis Enterography W WO ContrastNarrativeEXAMINATION:1. MAGNETIC RESONANCE IMAGING OF THE ABDOMEN WITHOUT AND WITHCONTRAST2. MAGNETIC RESONANCE IMAGING OF THE PELVIS WITHOUT AND WITH CONTRASTHISTORY: Ulcerative colitis,perforated diverticulitis, hepaticabscessesTECHNIQUE: Magnetic resonance imaging of the abdomen andpelvis wasperformed prior to and following the uneventful administration ofintravenous Gadolinium contrast. Oral contrast and 1 mg ofintravenous glucagon was administered prior to the examination.Protocol: MR Enterography and Fistula PelvisContrast: gadoterate 13 mLCOMPARISON: CT 11/04/2023FINDINGS:Bowel: Evolving findings of sigmoid diverticulitis with significantwall thickening and adjacent stranding. There are small adjacentcollections consistent with contained perforations these measure 2.0and 1.8 cm (series 29, image 7). Small volume free intraperitonealfluid. There is also diffuse mild thickening and T2 hyperintensity ofthe more distal sigmoid and rectum.Perianal: No evidence of perianal fistulous disease.Liver:Diffuse iron deposition throughout the liver. No surface nodularity.Bile ducts: No biliary duct dilatation.Focal lesions: There are scattered hepatic cysts. For reference a 2.0cm cyst in the dome of the liver (series 31, image 15). There areadditional T2 hyperintense foci which demonstrate rim enhancement andrestricted diffusion, consistent with abscesses which are notsignificantly changed. For reference a 1.5 cm lesion in hepaticsegment 7 (series 28, image 26).Vasculature: Patent portal and hepatic vasculature.Gallbladder: Surgically absentPancreas: NormalSpleen: Diffuse iron deposition. Scattered abscesses also notedwithin the spleen, stable from recent prior CT.For reference, 0.7 cmlesion (series 28, image 26)Adrenals: NormalKidneys: Tiny left renal cyst. No h ydronephrosis.Bladder: NormalReproductive organs: There is a multiseptated cystic lesion whichappears to arise from the right ovary. This measures 16.4 x 11.6 x14.2 cm. No solid nodular/enhancing component is identified. Thereare some nonenhancing filling defects at the left upper aspect(series 32 image 15).Other Findings: Small left pleural effusion with associatedatelectasis. No abdominal lymphadenopathy. Diffuse iron depositionthroughout the marrow.Impression1. Evolving changes of sigmoid diverticulitis with containedperforation. Superimposed mild inflammation in the rectum and sigmoidmay be related to patient's history of ulcerative colitis.2. Scattered abscesses throughout the liver and spleen, notsignificantly changed compared to 11/04/2023.3. Large multiseptated O RADS 3 lesion, likely arising from the rightovary. Recommend continued gynecologic follow-up.4. Small left pleural effusion.5. Iron deposition throughout the liver, spleen, and bone marrow,compatible with secondary hemachromatosis.Dictated by: Carlos Manuel Shaikh M.D.The radiology attending physician has personally reviewed this study,and had reviewed and/or edited this written report and agrees withit.Electronically signed by: Ashley Carrasco M.D. Assessment/Plan Darius Russo is a 63 y.o. female PMH HTN, T2DM, s/p cholecystectomy, a large adnexal mass c/f malignancy, and suspected crohn???s colitis who presents for active colitis. 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 Recommendations - ID consult regarding medical management of her liver/splenic microabscesses. We will discuss feasibility of initiating infliximab this admission as well. If not reasonable to start infliximab, willneed to engage CRS regarding partial colectomy. - Abx per primary/ID - Would not start abx iso liver/splenic microabscesses - Obtain CRP, blood cultures We will continue to follow-up with you. Thank you for involving us in the care of this patient. If you have any questions, please call the private GI pager during weekdays or the [facility] phone during after hours and weekends. Fernando Dooley MD GI Fellow Cosigned by Demian Pacheco MD at 11/26/2023 5:38 PM CDT Associated attestation - Demian Pacheco MD - 11/26/2023 5:38 PM CDT I saw and examined the patient on 11/26/2023. I agree with the findings and plan of care as documented in the fellow/resident???s note. Today, I am treating the patient for acute on chronic Crohn's disease which is in severe exacerbation, progression, or experiencing treatment side effects as described in the note. This diagnosis directly impacts my medical decision making. I reviewed records from this hospitalization and prior endoscopy records. I independently interpreted test: CT A/P and my findings are left upper lobe peribronchovascular nodules with surrounding lymphadenopathy, contained perforation of proximal sigmoid colon, and improving hepatic & splenic abscesses. I recommended the following: I discussed with patient that she likely has aggressive penetrating Crohn's disease and the agent with the best evidence for this is infliximab. However, she also has cavitary lesions of the lung along with liver abscesses, which could be concerning for a mycobacterial infection. Placing her on infliximab in this setting could prevent improvement of mycobacterial infections, due to the importance of TNF as an important cytokine in the immune response against such infections. As such, would recommend pulmonology consultation for bronchoscopy to further evaluate this. Appreciate infectious disease involvement as well. I discussed the risk/benefit of infliximab and decision was made to proceed pending evaluation as above. documented in this encounter Nursing Notes * Chen Douglas RN - 12/30/2023 1:33 PM CST Wound/Ostomy Consult Note Ostomy Consult Note Date of Admission: 11/25/2023 6:29 PM Today's Date: 12/30/23 Current Hospital Day: Hospital Day: 36 Reason for Consult: post op colostomy education Nutrition Body mass index is 23.06 kg/m??. Adult Diet Restricted; Consistent Carbohydrate Adult Discharge Diet Support Surfaces Type of Bed: low air loss Type of Sitting Surface: static air Ostomy Assessment: Type of Ostomy: colostomy Stoma Shape: round viewed through pouch Stoma Location: left abdomen Appliance Intact: Yes Pouch Supplies: at bedside Pouch Type: coloplast RANDAL 1 piece Drainage: Not to gravity Excretions: Stool Excretion Color: brown Comments: 12/30/23 0900 Ostomy 12/24/23 Colostomy LUQ Placement Date/Time: 12/24/23 1524 Present on Hospital Admission: No Ostomy type: Colostomy Location: LUQ Stomal Appliance 1 piece;Flat;Intact Appliance intact? Yes Stoma Assessment Red;Flush (viewedthrough pouch) Interventions Education Education: Education packet reviewed: patient return demonstrated emptying rinsing, and cleaning pouch. Reviewed how to order supplies. Plan of care discussed with: RN Questions answered: Yes Wound/Ostomy will follow patient: yes Any questions or concerns please contact the Wound/Ostomy department at [phone] Chen Douglas RN IO ARTIST * Melida Richards RN - 12/29/2023 11:48 AM CST Wound/Ostomy Service Initial Consult Note Admit Date: 11/25/2023 6:29 PM Today's Date: 12/29/23 Day of Hospital Stay: Hospital Day: 35 Reason for Consult: MASD Nutrition: Body mass index is 23.06 kg/m??. Support Surfaces: Type of Bed: low air loss Type of Sitting Surface: foam Skin/Wound Assessment: 12/29/23 0959 Wound 12/26/23 MASD (Moisture associated skin damage) Coccyx Date First Assessed/Time First Assessed: 12/26/23 1100 Present on Original Admission: No Primary Wound Type: MASD (Moisture associated skin damage) Location: Coccyx Dressing Status Open to Air Site Assessment Clean;Fragile;Moist;Bonaparte Shape & Pattern Oval Flora-wound Assessment Dry;Intact Interventions Site care Dressing Extra protective barrier cream Wound Length (cm) 1 cm Wound Width (cm) 1 cm Wound Surface Area (cm^2) 1 cm^2 Wound Depth (cm) 0.3 cm Wound Volume (cm^3) 0.3 cm^3 Education: POC Recommendations: Please cleanse buttocks with personal cleanser and apply thin layer EPC BID and PRN. Plan of care discussed with: Pt and RN Follow up: No follow up planned, re consult if needed Any questions or concerns please contact the Wound/Ostomy department at [phone]. Melida Richards RN IO ARTIST * Meliad Richards RN - 12/29/2023 11:42 AM CST Wound/Ostomy Service Follow up Consult Note Admit Date: 11/25/2023 6:29 PM Today's Date: 12/29/23 Day of Hospital Stay: Hospital Day: 35 Reason for Follow up: new colostomy Nutrition: Body mass index is 23.06 kg/m??. Support Surfaces: Type of Bed: low air loss Type of Sitting Surface:foam Skin/Wound Assessment: Ostomy 12/24/23 Colostomy LUQ (Active) Stomal Appliance Changed;1 piece;Flat;Intact 12/29/23 100 Appliance intact? Yes 12/29/231000 Stoma Assessment Red;Round;Moist 12/29/23 100 Stoma size (comment mm vs. in) 32 (mm) 12/29/23 100 Peristomal Assessment Intact 12/29/23 100 Mucocutaneous Junction/Treatment Intact (sutures noted) 12/29/23 100 Interventions Peristomal skin care;Appliance change;Education 12/29/23 100 Stool Output (mL) 50 mL 12/29/231000 Stool Net Output (mL) 50 mL 12/29/23 100 Education: Pt colostomy education reviewed with pt and pt spouse. Pt changed pouch at this visit. Plan of care discussed with: Pt, pt spouse, RN and INDUSTRIAL SECURITY ANALYST Follow up: Plan to follow up, as needed regularly until discharged Any questions or concerns please contact the Wound/Ostomy department at [phone]. Melida Richards RN IO ARTIST * Carlie Keith RN - 12/27/2023 3:34 PM CST Care assumed at 1500. She is alert and oriented. Medicated per APR. IO ARTIST * Chen Douglas RN - 12/26/2023 2:41 PM CST Wound/Ostomy Consult Note Ostomy Consult Note Date of Admission: 11/25/2023 6:29 PM Today's Date: 12/26/23 Current Hospital Day: Hospital Day: 32 Reason for Consult: post op colostomy education Nutrition Body mass index is 23.06 kg/m??. Adult Diet Restricted; Consistent Carbohydrate Support Surfaces Type of Bed: foam Type of Sitting Surface: foam Ostomy Assessment: Type of Ostomy: colostomy Stoma Shape: round Stoma Location: left abdomen Mucocutaneous Junction: Intact Appliance Intact: Yes Peristomal Ulcer: No Pouch Supplies: at bedside Pouch Type: coloplast RANDAL Drainage: Not to gravity Excretions: Stool Excretion Color: brown liquid Comments: 12/26/23 0900 Ostomy 12/24/23 Colostomy LUQ Placement Date/Time: 12/24/23 1524 Present on Hospital Admission: No Ostomy type: Colostomy Location: LUQ Stomal Appliance 1 piece;Flat;Intact;Changed Appliance intact? Yes Stoma Assessment Bonaparte;Edematous;Moist Peristomal Assessment Intact Mucocutaneous Junction/Treatment Intact (sutures visible) Interventions Appliance change;Education Education: Education packet reviewed: reviewed emptying, rinsing, and changing pouch. Reviewed ordering supplies when to change and empty pouch. Plan of care discussed with: RN please have patient assist emptying Questions answered: Yes Wound/Ostomy will follow patient: yes Any questions or concerns please contact the Wound/Ostomy department at [phone] Chen Douglas RN IO ARTIST * Melida Richards RN - 12/25/2023 11:16 AM CST Wound/Ostomy Service Follow up Consult Note Admit Date: 11/25/2023 6:29 PM Today's Date: 12/25/23 Day of Hospital Stay: Hospital Day: 31 Reason for Follow up: colostomy Nutrition: Body mass index is 23.06 kg/m??. Support Surfaces: Type of Bed: foam Type of Sitting Surface:foam Skin/Wound Assessment: 12/25/23 0814 Ostomy 12/24/23 Colostomy LUQ Placement Date/Time: 12/24/23 1524 Present on Hospital Admission: No Ostomy type: Colostomy Location: LUQ Stomal Appliance Intact;1 piece;Flat Appliance intact? Yes Stoma Assessment Red;Moist (as viewed through pouch) Stoma size (comment mm vs. in) (staci) Peristomal Assessment Unable to assess Mucocutaneous Junction/Treatment (staci) Interventions Education Education: Packet reviewed with pt and pt spouse. Plan of care discussed with: Pt, pt spouse and RN Follow up: Plan to follow up, as needed regularly Any questions or concerns please contact the Wound/Ostomy department at [phone]. Melida Richards RN IO ARTIST * Melida Richards RN - 12/23/2023 1:04 PM CST Provided patient with introduction to pouching system which includes stoma function and output. Discussed reasoning for marking preoperatively to achieve optimal pouching postoperatively. Patient advised of Ostomy Nurse's role and involvement with post-operative inpatient teaching. Encouraged patient to have family/caregiver attend and participate. Identification of rectus muscle, stoma site identified by sitting, standing, twisting and bending positions. Took into account patient's normal clothing. Stoma site within patients visual field. Stoma type: colostomy -v- ileostomy Stoma location: RUQ, RLQ, LUQ, LLQ 12/23/23 1300 Marking Patients Procedure Explained Yes Scheduled Procedure Scheduled in AM;Colostomy;Ileostomy Stoma Site LLQ;LUQ;RLQ;RUQ Visualization by Patient Good Follow Up after Surgery yes Patient verbalizes understanding of jhonny. Patient does not have physical limitation that could affect ability to care for ostomy. No further questions at this time. Melida Richards RN IO ARTIST * Idalia Stephenson RN - 12/18/2023 3:40 PM CDT Care overtaken from ABHAY Barnes. Agree with AM assessment unless otherwise noted. * Chen Paredes RN - 12/09/2023 12:45 PM CDT Called by RN to assess pt with HR 160s. On arrival, pt having rigors, HR 160s hypertensive . Obtained BC x2 and labs, placed PIV. Administered Metoprolol 2.5mg IVP x2 and started fluid bolus. ABX ordered and given. POC lactate 4.9 . Tmax 37.2 during event. HR down to 120s ST BP 130/90 , rigors subsiding after interventions. Placed on continuous telemetry with pulse oximetry with VS Q4hr. RN will call if further assistance needed. * Michelle Cooper, ABHAY - 12/04/2023 3:50 PM CDT ACT called for SVT 170s, Bp 150/90 pt c/o left chest pain, EKG completed, and labs/cultures drawn, valsalva maneuver attempted w/o success, 6mg adenosine given Hr improved to 150s, 5mg Metoprolol given-Hr improved to 120s EKG repeated showing ST, BP 110/80. Pt will remain on division with CTM, cadd technician at bedside and [facility] care. * Yuridia Atkinson RN - 11/25/2023 8:44 PM CDT Images from the original note were not included. Admission Note- Mobility Focused BMAT SCORE: 3 Is the patient experiencing pain that is impacting their mobility? No Altered mental status?: No Most recent vital signs: BP 126/59 (BP Location: Left arm, Patient Position: HOB 30 degrees) Pulse 100 Temp 37.1 ??C (98.8 ??F) (Oral) Resp 18 Ht 154.9 cm (5' 1 ) Wt 58.7 kg (129 lb 6.4 oz) SpO2 97% BMI 24.45 kg/m?? Current LDA's (Fill in manually): Is the patient's current BMAT score different than patient's baseline? Yes Would the patient benefit from a PT/OT consult? Yes * Tania Person RN - 11/25/2023 7:53 PM CDT All patient care, interactions and documentation performed by me as part of the patient care team are in the role of a Virtual Inpatient Nurse. This patient care has been provided through telemedicine with real time communication via two-way audio/visual technology and in collaboration with the bedside patient care team. documented in this encounter Miscellaneous Notes * Plan of Care - Ana Luisa Hoff RN - 12/30/2023 3:00 PM CST Problem: Discharge Planning Goal: Understanding discharge needs will improve Outcome: Progressing Flowsheets (Taken 12/17/20231929 by Samy Lyn) Understanding of discharge needs will improve: Discuss information regarding discharge instructions Identify discharge barriers Identify discharge learning needs (meds, wound care, etc.) Problem: Fall Risk Goal: Ability to state ways to decrease the risk of falls will improve Outcome: Progressing Flowsheets (Taken 12/17/20231929 by Samy Lyn) Ability to state ways to decrease the risk of falls will improve: Teach fall prevention measures Teach information regarding appropriate enviornmental changes Goal: Will remain free from falls Outcome: Progressing Flowsheets (Taken 12/17/20231929 by Samy Lyn) Will remain free from falls: Assess risk factors for falls Implement fall prevention measures Goal: Will remain free from injury from falls Outcome: Progressing Flowsheets (Taken 12/17/20231929 by Samy Lyn) Will remain free from injury from falls: Provide safe environment for conduction of activities of daily living in hospital environment Problem: Lack of Knowledge Goal: Ability to describe self care measures that may prevent or decrease complications related to Type 2 Diabetes will improve Outcome: Progressing Flowsheets (Taken 12/17/20231929 by Samy Lyn) Ability to describe self care measures that may prevent or decrease complications related to Type 2Diabetes will improve: Teach blood glucose measurement Teach signs and symptoms of hypoglycemia Teach signs and symptoms of hyperglycemia Problem: Health Nutrition Goal: Nutritional intake and knowledge related to Diabetes will improve Outcome: Progressing Flowsheets (Taken 12/17/20231929 by Samy Lyn) Nutritional intake and knowledge related to Diabetes will improve: Collaborate with admissions dean for diabetes evaluation and/or teaching Problem: Neurosensory Goal: Achieves maximal functionality and self care Outcome: Progressing Flowsheets (Taken 12/17/20231929 by Samy Lyn) Achieves maximal functionality and self care: Monitor swallowing and airway patency with patient fatigue and changes in neurological status Problem: Musculoskeletal Goal: Return mobility to safest level of function Outcome: Progressing Flowsheets (Taken 12/17/20231929 by Samy Lyn) Return mobility to safest level of function: Assess patient stability and activity tolerance for standing, transferring and ambulating with or without assistive devices Goal: Maintain proper alignment of affected body part Outcome: Progressing Flowsheets (Taken 12/30/2023 2088) Maintain proper alignment of affected body part: Instruct and reinforce with patient and family useof appropriate assistive device and precautions (e.g. spinal or hip dislocation precautions) Goal: Return ADL status to a safe level of function Outcome: Progressing Flowsheets (Taken 12/17/20231929 by Samy Lyn) Return activities of daily living status to a safe level of function: Assess patient's activities of daily living deficits and provide assistive devices as needed Assist and instruct patient to increase activity and self care Goal: Ability to perform activities at highest level will improve Outcome: Progressing Goal: Mobility, ROM and muscle strength will improve Outcome: Progressing Flowsheets (Taken 12/17/20231929 by Samy Lyn) Mobility, ROM and muscle strength will improve: Provide proper bed mobility techniques Perform passive and/or assist with range of motion Provide positioning in correct anatomical alignment Problem: Gastrointestinal Goal: Minimal or absence of nausea and vomiting Outcome: Progressing Flowsheets (Taken 12/17/20231929 by Samy Lyn) Minimal or absence of nausea and vomiting: Assess gastrointestinal status Provide a clean room free from unpleasant odors Monitor intake and output Administer ordered antiemetic medications as needed, assess medication effects Goal: Maintains or returns to baseline bowel function Outcome: Progressing Flowsheets (Taken 12/17/20231929 by Saym Lyn) Maintains or returns to baseline bowel function: Assess bowel function, evaluate bowel sounds and signs of abdominal distention Administer ordered medications as needed Monitor amount, characteristics and/or frequency of stool Goal: Maintains adequate nutritional intake Outcome: Progressing Flowsheets (Taken 12/17/20231929 by Samy Lyn) Maintains adequate nutritional intake: Monitor I&O, weight and lab values Monitor percentage of each meal consumed Problem: Metabolic/Fluid and Electrolytes Goal: Electrolytes maintained within normal limits Outcome: Progressing Flowsheets (Taken 12/17/20231929 by Samy Lyn) Electrolytes maintained within normal limits: Monitor labs and assess patient for signs and symptoms of electrolyte imbalances Goal: Glucose maintained within prescribed range Outcome: Progressing Flowsheets (Taken 12/17/20231929 by Samy Lyn) Glucose maintained within prescribed range: Assess for signs and symptoms of hyperglycemia and hypoglycemia, monitor glucose as ordered Administer ordered medications to maintain glucose within target range Problem: Lack of Knowledge Goal: Ability to develop a pain control plan will improve Outcome: Progressing Flowsheets (Taken 12/17/20231929 by Samy Lyn) Ability to develop a pain control plan will improve: Teach information regarding pain management Educate pain scale for assessing level of pain Explain causes of pain and how long pain can be expected to last Problem: Medication Goal: Satisfaction with pain management medication regimen will improve Outcome: Progressing Flowsheets (Taken 12/17/20231929 by Samy Lyn) Satisfaction with pain management medication regimen will improve: Evaluate medication effects Problem: Sensory Goal: Ability to identify factors that increase pain levels will improve while working to decrease the patient's pain levels Outcome: Progressing Flowsheets (Taken 12/17/20231929 by Samy Lyn) Ability to identify factors that increase pain levels will improve while working to decrease patients pain levels: Assess pain status Encourage distraction activities Observe non-verbal cues of discomfort, such as restlessness, muscle tension, or altered vital signs Assess effects of pain control measures Problem: Coping Goal: Ability to cope will improve Outcome: Progressing Flowsheets (Taken 12/17/20231929 by Samy Lyn) Ability to cope will Improve: Encourage vebalization of feelings surrounding pain Provide emotional support Assess beliefs of pain Problem: Health Behavior Goal: Identification of resources available to assist in meeting health care needs will improve Outcome: Progressing Flowsheets (Taken 12/17/20231929 by Samy Lyn) Identification of resources available to assist in meeting health care needs will improve: Collaborate with pain management Problem: Respiratory Goal: Achieves optimal ventilation and oxygenation Outcome: Progressing Flowsheets (Taken 12/17/20231929 by Samy Lyn) Achieves optimal ventilation and oxygenation: Assess for changes in respiratory status Manage oxygen therapy Perform cluster care Assess for changes in mentation and behavior Assess and instruct to report shortness of breath or any respiratory difficulty Goal: Ability to maintain a clear airway will improve Outcome: Progressing Flowsheets (Taken 11/26/20234 by Debbie Yen, RN) Ability to maintain a clear airway will improve: Evaluate breath sounds Problem: Skin/Tissue Integrity Goal: Incisions, wounds, or drain sites healing without S/S of infection Outcome: Progressing Flowsheets (Taken 12/17/20231929 by Samy Lyn) Incision(s), Wound(s) or Drain Site(s) healing without S/S of infection: Assess and document risk factors for pressure injury development Assess and document skin integrity Assess and document dressing/incision, wound bed, drain sites and surrounding tissue Problem: Infection Goal: Absence of infection during hospitalization Outcome: Progressing Flowsheets (Taken 12/17/20231929 by Samy Lyn) Absence of infection during hospitalization: Assess and monitor for signs and symptoms of infection Monitor lab/diagnostic results Monitor all insertion sites i.e., indwelling lines, tubes and drains and evaluate for need daily Administer medications as ordered Instruct and encourage patient and family to use good hand hygiene technique Apply infection specific precautions per policy Problem: Isolation Lack of Knowledge Goal: Knowledge of risk factors and measures for prevention of condition will improve Outcome: Progressing Flowsheets (Taken 12/17/20231929 by Samy Lyn) Knowledge of risk factors and measures for prevention of condition will improve: Discuss risk of infection Discuss good hand hygiene Discuss infection prevention measures Teach significant others hand washing technique Discuss signs and symptoms of infection Use teach-back technique to assess learning Problem: Isolation Physical Regulation Goal: Isolation- Spread of further infection will be prevented Outcome: Progressing Flowsheets (Taken 12/17/20231929 by Samy Lyn) Spread of further infection will be prevented: Implement protective environment Encourage respiratory hygiene/cough etiquette measures Encourage oral hygiene Use standard precautions Administer medications Implement infection prevention measures Monitor vital signs Monitor diagnostic test results Collaborate with multidisiplinary care team Goal: Isolation- Complications related to the disease process, condition, or treatment will be avoided or minimized. Outcome: Progressing Flowsheets (Taken 12/16/20231948 by Samy Lyn) Complications related to the disease process, condition, or treatment will be avoided or minimized: Assess emotional status Provide emotional support Implement safety precautions Problem: Hematologic Goal: Maintains hematologic stability Outcome: Progressing Flowsheets (Taken 12/17/20231929 by Samy Lyn) Maintains Hematologic Stability: Assess for signs and symptoms of bleeding or hemorrhage Monitor labs Problem: Skin Integrity Impairment Risk Goal: Mobility will improve Outcome: Progressing Flowsheets (Taken 12/17/20231929 by Samy Lyn) Mobility will improve: Encourage mobilization to extent of ability, assist with range of motion as needed Encourage turning and repositioning, assist as needed Assess circulation, sensation and/or motion of extremity Encourage ambulation Goal: Understanding of ways to prevent future skin breakdown will improve Outcome: Progressing Flowsheets (Taken 12/17/20231929 by Samy Lyn) Understanding of ways to prevent future skin breakdown will improve: Discuss treatments to protect skin integrity Goal: Nutritional status will improve Outcome: Progressing Flowsheets (Taken 12/17/20231929 by Samy Lyn) Nutritional status will improve: Assess nutritional status Encourage nutritional intake Monitor intake and output Encourage fluid intake Goal: Risk for impaired skin integrity will decrease Outcome: Progressing Flowsheets (Taken 12/17/20231929 by Samy Lyn) Risk for impaired skin integrity will decrease: Identify risk factors for impaired skin integrity and/or pressure injuries Implement precautions to protect skin integrity Perform cleansing of skin when soiled Monitor skin integrity, appearance and temperature Use moisturizing agent to dry skin Provide pressure-redistribution bed, mattress and/or chair cushion Problem: Genitourinary Goal: Absence of urinary retention Outcome: Progressing Flowsheets (Taken 12/17/20231929 by Samy Lyn) Absence of urinary retention: Assess amount and/or characteristics of urine Problem: Cardiovascular Goal: Maintains optimal cardiac output and hemodynamic stability Outcome: Progressing Flowsheets (Taken 12/17/20231929 by Samy Lyn) Maintain optimal cardiac output and hemodynamic Stability: Monitor vital signs, rhythm, and trends Assess quality of pulses, skin color and temperature Monitor for bleeding, hypotension and signs of decreased cardiac output Assess for signs of decreased coronary artery perfusion - ex. angina Goal: Absence of cardiac dysrhythmias or at baseline Outcome: Progressing Flowsheets (Taken 12/20/2023214 by Debbie Yen RN) Absence of cardiac dysrhythmias or at baseline: Continuous cardiac monitoring, monitor vital signs, obtain 12 lead EKG if indicated Administer antiarrhythmic and heart rate control medications as ordered Initiate emergency measures for life threatening arrhythmias Goals: Clinical Goals for the Shift: pain control, diet tolerance, ambulation in room and hallways with assistance, monitor I&O, monitor incisions and wounds, VSS, afebrile Health Psychologist Patient Centered Goal for Treatment: dc home and pain control Summary: pain controlled with routine medications given as ordered and oxycodone prn as ordered, carb consistent diet tolerated well with accu checks QID with SSI, up ad marcel in room and hallways withWW at BS for use, monitor I&O UOP and stool from colostomy, monitor incisions, monitor MASD to coccyx and EPC ointment applied to area after cleaning with wound cleanser, DISPO planning for today IO ARTIST * ECIN Note - Shazia Mario RN - 12/30/2023 11:24 AM CST Images from the original note were not included. ADMISSION FORM Encounter # MR# Enc Start Date Time 11/25/2023-1829 Pt Location [id number] [facility] 6900 CSN# LOC Clin Svc PAT Enc Type [id number] Acute Colon Rectal Surgery Inpatient Adm Dx CodeDesc Ulcerative colitis (HCC) [K51.90] ;;; Inf Dis Visitor Restriction Confidential Adm Type Adm Source Last Enc Date No Urgent 1 Date - Age Race Ethnicity Josephine Name 1960 (63 yrs) White Non- Gender Marital Orthodoxy Soc Sec # Female MU-ISM [id number] Health Care Proxy [facility] Patient Living Will Status Mauritanian Patient Name Address, Phone Employer Name, Address, Phone Emplm [facility] Medical [employer] [facility] [place] [address] Home: Work: [employer] [address] [place] [id number] Guarantor Name, Pt Rel, Address, Phone Guarantor Empr, Address, Phone Emplm [facility] [employer] [facility] Self SS#: [id number] [facility] [facility] [address] [place] [phone] [place] [address] Work: [employer] Name Home Phone Work Phone Mobile Phone Relationship Lgl JEAN CLAUDE Youngblood [phone] Spouse Insurance 1 Name, Address, Phone Policy Number Group Number SubscriberDARIUS SCHERER 1960 Subscriber Employer [employer] [id number] Referral/Authorization # , Eff. Date Pre-Cert. Phone Verified? 02/18/2016 Insurance 2 Name, Address, Phone Policy Number Group Number SubscriberDARIUS SCHERER 1960 Subscriber Employer MEDICARE/MEDICARE PART A & B [id number] [address] [address] Referral/Authorization # [place] [address] Eff. Date Pre-Cert. Phone Verified? 04/18/2023 Insurance 3 Name, Address, Phone Policy Number Group Number SubscriberDOB Subscriber Employer / Referral/Authorization # , Eff. Date Pre-Cert. Phone Verified? Insurance 4 Name, Address, Phone Policy Number Group Number SubscriberDOB Subscriber Employer / Referral/Authorization # , Eff. Date Pre-Cert. Phone Verified? Primary Physician Referring Physician Admitting Physician, ID Attending Physician, ID Kaushal Heath MD [phone] MD Crhis Humphrey Matthew G., MD Incident Date Incident Type Inc St/Prov Incident Description / Location FOR EMS ONLY: IO ARTIST * ECIN Note - Shazia Mario RN - 12/30/2023 11:22 AM CST [address] [address] Date: Dec 25, 2023 Ambulatory referral to Home Health Patient: Darius Russo [address] [facility] [address] : 1960 SSN: [id number] Sex: F Insurance: [facility] Referring Provider Information: BOBBY TYLER Referral Information: # Visits: 1 Referral Type: Home Health [42] Urgency: Routine Referral Reason: Specialty Services Required Start Date: Dec 25, 2023 End Date: To be determined by Insurer Diagnosis: Diverticulitis of large intestine with perforation without abscess or bleeding (K57.20) Refer to Dept: [facility] [address] [place], [address] Service Line: Home Health Primary disciplines requested: [facility]: Wound/Ostomy Care Does the patient have a wound vac? No Wound Information: ostomy care and teaching, wound check, if abdominal jesu present, remove 14 days post op Requested Start of Care Date: 24-48 hours Physician to follow patient's care (the person listed here will be responsible for signing ongoing orders): Other Comment: Chris I attest that I or another qualified licensed provider saw the patient 90 days prior to or 30 days post admission and this face to face encounter meets the necessary Home Health requirements. The face to face encounter occurred on (date): 12/25/2023 The encounter with the patient was in whole, or in part, for the following medical condition, whichis the primary reason for home health care. (List medical condition): Colitis I certify that, based on my findings, the following services are medically necessary skilled home health services: Wound/Ostomy Care Clinical findings that support the need for home care: Medical condition requiring skilled assessment/education Clinical findings that support the need for home care: Wound requiring care, assessment, and instruction I certify that my clinical findings support patient's homebound status. Homebound criteria met because: Pain and impaired mobility post-op 2-3 times a week for 2-4 weeks. Entered by: Bobby Tyler NP Authorizing Provider: Bobby Tyler NP ( ) Cart Attendant: Yo Perez MD This document serves as a request of services and does not constitute Insurance authorization or approval of services. To determine eligibility, please contact the member???s Insurance carrier to verify and review coverage. If you have medical questions regarding this request for services. Please contact [facility] [phone] between the hours of 8:00am - 4:30pm (Mon-Fri). IO ARTIST * Plan of Care - Tiffanie Vela - 12/29/2023 10:09 PM CST Goals: Clinical Goals for the Shift: Increased ambulation today, drink more supplement, void trial (to void in hat and call staff for bladder scan), routine repositioning and pain management. Health Psychologist Patient Centered Goal for Treatment: Safe discharge Summary: Problem: Discharge Planning Goal: Understanding discharge needs will improve Outcome: Progressing Problem: Fall Risk Goal: Ability to state ways to decrease the risk of falls will improve Outcome: Progressing Goal: Will remain free from falls Outcome: Progressing Goal: Will remain free from injury from falls Outcome: Progressing Problem: Lack of Knowledge Goal: Ability to describe self care measures that may prevent or decrease complications related to Type 2 Diabetes will improve Outcome: Progressing Problem: Health Nutrition Goal: Nutritional intake and knowledge related to Diabetes will improve Outcome: Progressing Problem: Neurosensory Goal: Achieves maximal functionality and self care Outcome: Progressing Problem: Musculoskeletal Goal: Return mobility to safest level of function Outcome: Progressing Goal: Maintain proper alignment of affected body part Outcome: Progressing Goal: Return ADL status to a safe level of function Outcome: Progressing Goal: Ability to perform activities at highest level will improve Outcome: Progressing Goal: Mobility, ROM and muscle strength will improve Outcome: Progressing Problem: Gastrointestinal Goal: Minimal or absence of nausea and vomiting Outcome: Progressing Goal: Maintains or returns to baseline bowel function Outcome: Progressing Goal: Maintains adequate nutritional intake Outcome: Progressing Problem: Metabolic/Fluid and Electrolytes Goal: Electrolytes maintained within normal limits Outcome: Progressing Goal: Glucose maintained within prescribed range Outcome: Progressing Problem: Lack of Knowledge Goal: Ability to develop a pain control plan will improve Outcome: Progressing Problem: Medication Goal: Satisfaction with pain management medication regimen will improve Outcome: Progressing Problem: Sensory Goal: Ability to identify factors that increase pain levels will improve while working to decrease the patient's pain levels Outcome: Progressing Problem: Coping Goal: Ability to cope will improve Outcome: Progressing Problem: Health Behavior Goal: Identification of resources available to assist in meeting health care needs will improve Outcome: Progressing Problem: Respiratory Goal: Achieves optimal ventilation and oxygenation Outcome: Progressing Goal: Ability to maintain a clear airway will improve Outcome: Progressing Problem: Skin/Tissue Integrity Goal: Incisions, wounds, or drain sites healing without S/S of infection Outcome: Progressing Problem: Infection Goal: Absence of infection during hospitalization Outcome: Progressing Problem: Isolation Lack of Knowledge Goal: Knowledge of risk factors and measures for prevention of condition will improve Outcome: Progressing Problem: Isolation Physical Regulation Goal: Isolation- Spread of further infection will be prevented Outcome: Progressing Goal: Isolation- Complications related to the disease process, condition, or treatment will be avoided or minimized. Outcome: Progressing Problem: Hematologic Goal: Maintains hematologic stability Outcome: Progressing Problem: Skin Integrity Impairment Risk Goal: Mobility will improve Outcome: Progressing Goal: Understanding of ways to prevent future skin breakdown will improve Outcome: Progressing Goal: Nutritional status will improve Outcome: Progressing Goal: Risk for impaired skin integrity will decrease Outcome: Progressing Problem: Genitourinary Goal: Absence of urinary retention Outcome: Progressing Problem: Cardiovascular Goal: Maintains optimal cardiac output and hemodynamic stability Outcome: Progressing Goal: Absence of cardiac dysrhythmias or at baseline Outcome: Progressing IO ARTIST * Plan of Care - Yakelin Hill - 12/29/2023 6:56 PM CST Goals: Clinical Goals for the Shift: Increased ambulation today, drink more supplement, void trial (to void in hat and call staff for bladder scan), routine repositioning and pain management. Health Psychologist Patient Centered Goal for Treatment: Safe discharge Summary: Patient has increased mobility today, passed void trial and drinking her supplement. However, patient c/o distention and poor appetite today despite of effort. Doctor has been notified. IO ARTIST * Plan of Care - Tiffanie Vela - 12/29/2023 12:59 AM CST Goals: Clinical Goals for the Shift: VSS, pain/nausea control, I&O, saba/ostomy care, safety. Health Psychologist Patient Centered Goal for Treatment: Safe discharge Summary: Problem: Discharge Planning Goal: Understanding discharge needs will improve Outcome: Progressing Problem: Fall Risk Goal: Ability to state ways to decrease the risk of falls will improve Outcome: Progressing Goal: Will remain free from falls Outcome: Progressing Goal: Will remain free from injury from falls Outcome: Progressing Problem: Lack of Knowledge Goal: Ability to describe self care measures that may prevent or decrease complications related to Type 2 Diabetes will improve Outcome: Progressing Problem: Health Nutrition Goal: Nutritional intake and knowledge related to Diabetes will improve Outcome: Progressing Problem: Neurosensory Goal: Achieves maximal functionality and self care Outcome: Progressing Problem: Musculoskeletal Goal: Return mobility to safest level of function Outcome: Progressing Goal: Maintain proper alignment of affected body part Outcome: Progressing Goal: Return ADL status to a safe level of function Outcome: Progressing Goal: Ability to perform activities at highest level will improve Outcome: Progressing Goal: Mobility, ROM and muscle strength will improve Outcome: Progressing Problem: Gastrointestinal Goal: Minimal or absence of nausea and vomiting Outcome: Progressing Goal: Maintains or returns to baseline bowel function Outcome: Progressing Goal: Maintains adequate nutritional intake Outcome: Progressing Problem: Metabolic/Fluid and Electrolytes Goal: Electrolytes maintained within normal limits Outcome: Progressing Goal: Glucose maintained within prescribed range Outcome: Progressing Problem: Lack of Knowledge Goal: Ability to develop a pain control plan will improve Outcome: Progressing Problem: Medication Goal: Satisfaction with pain management medication regimen will improve Outcome: Progressing Problem: Sensory Goal: Ability to identify factors that increase pain levels will improve while working to decrease the patient's pain levels Outcome: Progressing Problem: Coping Goal: Ability to cope will improve Outcome: Progressing Problem: Health Behavior Goal: Identification of resources available to assist in meeting health care needs will improve Outcome: Progressing Problem: Respiratory Goal: Achieves optimal ventilation and oxygenation Outcome: Progressing Goal: Ability to maintain a clear airway will improve Outcome: Progressing Problem: Skin/Tissue Integrity Goal: Incisions, wounds, or drain sites healing without S/S of infection Outcome: Progressing Problem: Infection Goal: Absence of infection during hospitalization Outcome: Progressing Problem: Isolation Lack of Knowledge Goal: Knowledge of risk factors and measures for prevention of condition will improve Outcome: Progressing Problem: Isolation Physical Regulation Goal: Isolation- Spread of further infection will be prevented Outcome: Progressing Goal: Isolation- Complications related to the disease process, condition, or treatment will be avoided or minimized. Outcome: Progressing Problem: Hematologic Goal: Maintains hematologic stability Outcome: Progressing Problem: Skin Integrity Impairment Risk Goal: Mobility will improve Outcome: Progressing Goal: Understanding of ways to prevent future skin breakdown will improve Outcome: Progressing Goal: Nutritional status will improve Outcome: Progressing Goal: Risk for impaired skin integrity will decrease Outcome: Progressing Problem: Genitourinary Goal: Absence of urinary retention Outcome: Progressing Problem: Cardiovascular Goal: Maintains optimal cardiac output and hemodynamic stability Outcome: Progressing Goal: Absence of cardiac dysrhythmias or at baseline Outcome: Progressing IO ARTIST * Plan of Care - Yakelin Hill - 12/28/2023 6:57 PM CST Goals: Clinical Goals for the Shift: VSS, pain/nausea control, I&O, saba/ostomy care, safety. Health Psychologist Patient Centered Goal for Treatment: Safe discharge Summary: Patient ambulated in the hallways, stage 2 pressure ulcer noted to coccyx. Foam applied. Pt verbalized understanding on how to empty colostomy bag. IO ARTIST * Plan of Care - Narcisa Ibarra RN - 12/27/2023 10:18 PM CST Goals: Clinical Goals for the Shift: VSS, pain/nausea control, I&O, saba/ostomy care, safety. Snf Patient Centered Goal for Treatment: Safe discharge Problem: Discharge Planning Goal: Understanding discharge needs will improve Outcome: Progressing Problem: Fall Risk Goal: Ability to state ways to decrease the risk of falls will improve Outcome: Progressing Goal: Will remain free from falls Outcome: Progressing Goal: Will remain free from injury from falls Outcome: Progressing Problem: Lack of Knowledge Goal: Ability to describe self care measures that may prevent or decrease complications related to Type 2 Diabetes will improve Outcome: Progressing Problem: Health Nutrition Goal: Nutritional intake and knowledge related to Diabetes will improve Outcome: Progressing Problem: Neurosensory Goal: Achieves maximal functionality and self care Outcome: Progressing Problem: Musculoskeletal Goal: Return mobility to safest level of function Outcome: Progressing Goal: Maintain proper alignment of affected body part Outcome: Progressing Goal: Return ADL status to a safe level of function Outcome: Progressing Goal: Ability to perform activities at highest level will improve Outcome: Progressing Goal: Mobility, ROM and muscle strength will improve Outcome: Progressing Problem: Gastrointestinal Goal: Minimal or absence of nausea and vomiting Outcome: Progressing Goal: Maintains or returns to baseline bowel function Outcome: Progressing Goal: Maintains adequate nutritional intake Outcome: Progressing Problem: Metabolic/Fluid and Electrolytes Goal: Electrolytes maintained within normal limits Outcome: Progressing Goal: Glucose maintained within prescribed range Outcome: Progressing Problem: Lack of Knowledge Goal: Ability to develop a pain control plan will improve Outcome: Progressing Problem: Medication Goal: Satisfaction with pain management medication regimen will improve Outcome: Progressing Problem: Sensory Goal: Ability to identify factors that increase pain levels will improve while working to decrease the patient's pain levels Outcome: Progressing Problem: Coping Goal: Ability to cope will improve Outcome: Progressing Problem: Health Behavior Goal: Identification of resources available to assist in meeting health care needs will improve Outcome: Progressing Problem: Respiratory Goal: Achieves optimal ventilation and oxygenation Outcome: Progressing Goal: Ability to maintain a clear airway will improve Outcome: Progressing Problem: Skin/Tissue Integrity Goal: Incisions, wounds, or drain sites healing without S/S of infection Outcome: Progressing Problem: Infection Goal: Absence of infection during hospitalization Outcome: Progressing Problem: Isolation Lack of Knowledge Goal: Knowledge of risk factors and measures for prevention of condition will improve Outcome: Progressing Problem: Isolation Physical Regulation Goal: Isolation- Spread of further infection will be prevented Outcome: Progressing Goal: Isolation- Complications related to the disease process, condition, or treatment will be avoided or minimized. Outcome: Progressing Problem: Hematologic Goal: Maintains hematologic stability Outcome: Progressing Problem: Skin Integrity Impairment Risk Goal: Mobility will improve Outcome: Progressing Goal: Understanding of ways to prevent future skin breakdown will improve Outcome: Progressing Goal: Nutritional status will improve Outcome: Progressing Goal: Risk for impaired skin integrity will decrease Outcome: Progressing Problem: Genitourinary Goal: Absence of urinary retention Outcome: Progressing Problem: Cardiovascular Goal: Maintains optimal cardiac output and hemodynamic stability Outcome: Progressing Goal: Absence of cardiac dysrhythmias or at baseline Outcome: Progressing IO ARTIST * Plan of Care - Katy Guidry RN - 12/27/2023 4:45 AM CST Problem: Discharge Planning Goal: Understanding discharge needs will improve Outcome: Progressing Problem: Fall Risk Goal: Ability to state ways to decrease the risk of falls will improve Outcome: Progressing Goal: Will remain free from falls Outcome: Progressing Goal: Will remain free from injury from falls Outcome: Progressing Problem: Health Nutrition Goal: Nutritional intake and knowledge related to Diabetes will improve Outcome: Progressing Problem: Musculoskeletal Goal: Return mobility to safest level of function Outcome: Progressing Goal: Maintain proper alignment of affected body part Outcome: Progressing Goal: Return ADL status to a safe level of function Outcome: Progressing Goal: Ability to perform activities at highest level will improve Outcome: Progressing Goal: Mobility, ROM and muscle strength will improve Outcome: Progressing Problem: Infection Goal: Absence of infection during hospitalization Outcome: Progressing Problem: Medication Goal: Satisfaction with pain management medication regimen will improve Outcome: Progressing Goals: Clinical Goals for the Shift: monitor vitals and I&O's, pain management, ambulation, tolerate diet Summary: vitals and I&O's stable, critical hgb of 6.2, 1 unit of blood given, post transfusion hgb 8.5, patient denies pain, encouraging ambulation, patient is tolerating diet IO ARTIST * Plan of Care - Teetee Edwards RN - 12/26/2023 4:12 PM CST Problem: Discharge Planning Goal: Understanding discharge needs will improve Outcome: Progressing Problem: Fall Risk Goal: Ability to state ways to decrease the risk of falls will improve Outcome: Progressing Goal: Will remain free from falls Outcome: Progressing Goal: Will remain free from injury from falls Outcome: Progressing Problem: Skin Integrity Impairment Risk Goal: Mobility will improve Outcome: Progressing Goal: Understanding of ways to prevent future skin breakdown will improve Outcome: Progressing Goal: Nutritional status will improve Outcome: Progressing Goal: Risk for impaired skin integrity will decrease Outcome: Progressing Problem: Health Nutrition Goal: Nutritional intake and knowledge related to Diabetes will improve Outcome: Progressing Goals: Clinical Goals for the Shift: Monitor vitals and I&O's, pain management, ambulation, tolerate diet Summary: Pt. Is A&oX4, bP and urine output comparatively better today, denies dizziness, OVEN HEATER discontinued, encourage for feeds, low appetite, ambulation tolerated fairly well IO ARTIST * Plan of Care - Shazia Mario RN - 12/26/2023 1:19 PM CST 12/26/23 1318 Discharge Planning Support System Spouse/Significant Other;Family members (SIMBAGABRIELLEJEAN CLAUDE (Spouse) ) Anticipated discharge level of [facility] care Does the patient need discharge transport arranged? No (per family) Discharge Transportation Communication Mode of transport has been discussed with the patient/family. All are agreeable to the plan and understand their responsibilities to ensure the safe transfer. No further CM/SW intervention is anticipated at this time. Post Acute Care Plan Home Care Services Yes (new colostomy) Type of Home Care Services Nurse visit Home Care Services Name and Phone Number CM sent proactive referrals, referrals pending OP Services N/A DME N/A Post Acute Care Facility N/A Per Medical Chart/Rounds/IDR: Patient is a 63 y.o. female with physical deconditioning, status post open left colon resection andcolostomy, LIBRA/BSO. IDR: continue ostomy teaching, I unit of blood yesterday, consistent carb diet, follow up with infectious disease recommendations ADD: 12/28 Plan/referrals made/in place: Patient to discharge home with her family once medically ready for discharge. 12/24 patient declinedplacement. No current accepting agencies. The following agencies have declined patient: [facility] ([id number]) [facility] Home Care Services/[facility]/[employer] [facility]) [facility] Support following discharge: per family Transportation: per family F/U Appointments: Per CRS medical team Plan for weekend discharge: No, patient needs more ostomy teaching and patient does not have HH established yet at this time due to no accepting agencies in patient's area For weekend assistance, please check the treatment team in [facility] for the assigned embedded case manager or contact the weekend Case Management phone. IO ARTIST * Consults, Subsequent - Cara Guy NP - 12/26/2023 6:00 AM STUDIO ARTIST Infectious Disease Subsequent Consult Note Infectious Disease Team: General 4 Contact Information: Please see [facility] Treatment Team listing for up-to-date contact information. Subjective Chief complaint of Spleen and liver abscesses, contained perforation, lung nodules with cavitation Interval History: -CT chest with resolution of nodular cavitations. This was likely from GI source -Complete 5 days of antibiotics from surgery Objective Anti-infectives (From admission, onward) Start Dose/Rate Route Frequency Ordered Stop 12/25/23 1415 linezolid (ZYVOX) tablet 600 mg 600 mg oral 2 times daily 12/25/23 1330 12/25/23 0830 piperacillin-tazobactam (ZOSYN) 3.375 gram/65 mL in sodium chloride 0.9% (premix) 3.375 g 3.375 g 130 mL/hr over 30 Minutes intravenous Every 6 hours scheduled 12/25/23 0740 Vitals: 24hr Min/Max: Temp Min: 36.2 ??C (97.1 ??F) Max: 36.8 ??C (98.2 ??F) Pulse Min: 69 Max: 99 BP Min: 79/36 Max: 120/60 Resp Min: 16 Max: 19 SpO2 Min: 95 % Max: 100 % Most Recent : Vitals: 12/26/23 0816 BP: 120/60 Pulse: 94 Resp: 19 Temp: 36.4 ??C (97.5 ??F) SpO2: 99% I/O last 2 completed shifts: In: 1490 [P.O.:1190; Blood:300] Out: 1525 [Urine:950; Stool:575] Active LDAs: Peripheral IV 12/26/23 22 G Posterior;Right Hand (Active) Number of days: 0 Urethral Catheter Non-latex;Temperature probe (Active) Number of days: 2 Ostomy 12/24/23 Colostomy LUQ (Active) Number of days: 2 Physical Exam: Physical Exam Constitutional: General: She is not in acute distress. HENT: Head: Normocephalic and atraumatic. Nose: Nose normal. Mouth/Throat: Mouth: Mucous membranes are moist. Cardiovascular: Rate and Rhythm: Normal rate and regular rhythm. Pulmonary: Effort: Pulmonary effort is normal. No respiratory distress. Breath sounds: Normal breath sounds. Abdominal: General: Bowel sounds are normal. Palpations: Abdomen is soft. Tenderness: There is abdominal tenderness. Musculoskeletal: General: Normal range of motion. Right lower leg: No edema. Left lower leg: No edema. Skin: General: Skin is warm and dry. Findings: No rash. Neurological: General: No focal deficit present. Mental Status: She is alert and oriented to person, place, and time. Mental status is at baseline. Psychiatric: Mood and Affect: Mood normal. Behavior: Behavior normal. Thought Content: Thought content normal. Judgment: Judgment normal. Lab/Radiology/Diagnostic Review: Lab Results Component Value Date MICROBIOLOGY (.) 12/24/2023 Preliminary Report: Abundant Enterococcus faecium Susceptibility testing results to follow. Rare Klebsiella pneumoniae Susceptibility testing results to follow. Few Mixed microorganisms. MICROBIOLOGY Preliminary Report: No growth of fungus to date 12/24/2023 MICROBIOLOGY 12/24/2023 Preliminary Report: No growth of acid-fast bacilli to date MICROBIOLOGY Final Report: No growth 12/09/2023 MICROBIOLOGY Final Report: No growth 12/09/2023 Radiology results were reviewed. CT Chest W Contrast Result Date: 12/25/2023 Interval resolution of left upper and lower lobe cavitary nodular consolidations with residual atelectasis. Small bilateral pleural effusions. Dictated by: Katy Coyne MD The radiology attending physician has personally reviewed this study, and had reviewed and/or edited this written report and agrees with it. Electronically signed by: Brad Greene M.D. CT Chest W Contrast Result Date: 12/25/2023 Interval resolution of left upper and lower lobe cavitary nodular consolidations with residual atelectasis. Small bilateral pleural effusions. Dictated by: Katy Coyne MD The radiology attending physician has personally reviewed this study, and had reviewed and/or edited this written report and agrees with it. Electronically signed by: Brad Greene M.D. Assessment/Plan Ulcerative pancolitis with complication (CMS/HCC) (HCC) Assessment & Plan Patient is a 63 y.o. female with a history of hypertension, type 2 diabetes, and inflammatory boweldisease who [facility] for progressive weight loss and nausea in the setting of multiple admissions for diverticulitis complicated by contained sigmoid perforation, scattered liver and spleen abscesses and adnexal mass. She was admitted to [facility] on 11/24 for further workup and ID [...] processes. Near resolution of hepatic and splenic abs cesses. Cystic R adnexal lesion w/o focus of elevated FDG uptake. Hypermetabolic soft tissue nodulein pelvic peritoneum and within a fat-containing umbilical hernia. Left colon 12/23: enterococcus faecium, klebsiella pneumoniae, mixed micro Patient went to the OR 12/23 with TEAR DOWN MATCHER, CRS and urology for ex lap, left colectomy with end colostomy, LIBRA, BSO and ureteral stent placement. Surgery reporting source control archived. Given source control has been achieved, we are planning on 5 days of antibiotics from surgery. On assessment today, patient reports minimal use of her OVEN HEATER and that she typically has abdominal discomfort with causing. Encouraged ambulation and IS use. Reviewed ID involvement in care and plan tostop antibiotics 5 days from surgery. Questions answered [...] hesitate to reach out. ID signing off Hepatic abscess Assessment & Plan Near resolution of hepatic and splenic abscesses. No plans for repeat imaging given improvement. Continue antibiotics as described elsewhere. Pulmonary nodule Assessment & Plan Patient is a 63 y.o. female with a history of hypertension, type 2 diabetes, and inflammatory boweldisease who is [facility] for progressive weight loss and nausea in the setting of multiple admissions for diverticulitis complicated by contained sigmoid perforation, scattered liver and spleen abscesses and adnexal mass. She was admitted to [facility] on 11/24 for further workup and ID [...] processes. Near resolution of hepatic and splenic abs cesses. Cystic R adnexal lesion w/o focus of elevated FDG uptake. Hypermetabolic soft tissue nodulein pelvic peritoneum and within a fat-containing umbilical [...] please do not hesitate to reach out. Splenic abscess Assessment & Plan Near resolution of hepatic and splenic abscesses. No plans for repeat imaging given improvement. Continue antibiotics as described elsewhere. Today, I am treating the patient for Spleen and liver abscesses, contained perforation, lung nodules with cavitation which can cause fever, pain, worsening of infection and sepsis in the short-term future in the absence of appropriate treatment, as described in the note., Reviewed notes by TEAR DOWN MATCHER, CRS, nursing and CM to determine appropriate plan of care as in the note., Estimated Creatinine Clearance: 39.6 mL/min (by C-G 65 yr and older- minimum SCr 0.8 based on SCr of 1.07 mg/dL). - reviewed; antibiotics recommended above are dosed accordingly., and The patient is being intensively monitored for antimicrobial toxicity from linezolid and zosyn with the following tests: cbc with diff, cmp. Plan formulated and discussed with Dr. Iverson. Cara Guy, Team 4 Infectious Diseases INDUSTRIAL SECURITY ANALYST Please contact the Team 4 ID INDUSTRIAL SECURITY ANALYST M-F, 7-3; or the Attending at the phone numbers in care team with any questions or concerns. After hours, please contact the ID fellow consular officer. Cosigned by Laury Iverson MD at 12/26/2023 3:40 PM STUDIO ARTIST IO ARTIST IO ARTIST * Plan of Care - Katy Guidry RN - 12/26/2023 3:43 AM CST Problem: Discharge Planning Goal: Understanding discharge needs will improve Outcome: Progressing Problem: Fall Risk Goal: Ability to state ways to decrease the risk of falls will improve Outcome: Progressing Goal: Will remain free from falls Outcome: Progressing Goal: Will remain free from injury from falls Outcome: Progressing Problem: Skin Integrity Impairment Risk Goal: Mobility will improve Outcome: Progressing Goal: Understanding of ways to prevent future skin breakdown will improve Outcome: Progressing Goal: Nutritional status will improve Outcome: Progressing Goal: Risk for impaired skin integrity will decrease Outcome: Progressing Goals: Clinical Goals for the Shift: Monitor vitals and I&O's, pain management, ambulation, tolerate diet Summary: patient hemoglobin was critical at 6.4. MD notified, one unit of blood given, post transfusion hemoglobin was 7.4, patient was hypotensive overnight, patient denies pain on my shift IO ARTIST * Plan of Care - Shazia Mario RN - 12/25/2023 2:19 PM CST 12/25/23 1416 Discharge Planning Support System Spouse/Significant Other;Family members (JEAN CLAUDE RUSSO (Spouse) ) Anticipated discharge level of [facility] care Does the patient need discharge transport arranged? No (per family) Discharge Transportation Communication Mode of transport has been discussed with the patient/family. All are agreeable to the plan and understand their responsibilities to ensure the safe transfer. No further CM/SW intervention is anticipated at this time. Post Acute Care Plan Home Care Services Yes (new colostomy) Type of Home Care Services Nurse visit Home Care Services Name and Phone Number CM sent proactive referrals, referrals pending OP Services N/A DME N/A Post Acute Care Facility N/A Per Medical Chart/Rounds/IDR: Patient is a 63 y.o. female with physical deconditioning, status postopen left colon resection and colostomy, LIBRA/BSO. IDR: saba catheter to remain in place, continue ostomy teaching ADD: 12/28 Plan/ Referral(s): Patient is identified to need home health snf for a new colostomy. CM sent proactive referrals to agencies near patient's home address in [place], [place]. Referrals pending, no accepting agencies at this time. CM will continue to follow for discharge needs. CM met with patient and spouse at the bedside and confirmed patient declines placement at this timeand wants HH. Patient confirmed she plans to discharge home to her home address and that [facility] is primary and Medicare is secondary [place]charge [place] an accepting HH agency Education Needs Identified (plan):continue ostomy teaching F/U Appointments: To be arranged by the medical team prior to discharge Patient's Identified Problem/Goal Problem:?Ensure acute medical needs are met and that patient has a safe discharge plan. Goal:?Secure a discharge plan that patient/family are agreeable with?and ensure patient has continuum of care. Patient and/or family are agreeable with plan. workers compensation manager will continue to follow and assist with discharge planning as needed. If any further discharge needs arise, please contact the covering embedded case manager. IO ARTIST * Plan of Care - Teetee Edwards RN - 12/25/2023 1:52 PM CST Problem: Discharge Planning Goal: Understanding discharge needs will improve Outcome: Progressing Problem: Fall Risk Goal: Ability to state ways to decrease the risk of falls will improve Outcome: Progressing Goal: Will remain free from falls Outcome: Progressing Goal: Will remain free from injury from falls Outcome: Progressing Problem: Skin Integrity Impairment Risk Goal: Mobility will improve Outcome: Progressing Goal: Understanding of ways to prevent future skin breakdown will improve Outcome: Progressing Goal: Nutritional status will improve Outcome: Progressing Goal: Risk for impaired skin integrity will decrease Outcome: Progressing Goals: Clinical Goals for the Shift: monitor vitals, pain, I/o Summary: pt. Is A&oX4, has soft Bp , low urine output, Oyster Grower Bobby aware, pain controlled with PCAand scheduled pain meds IO ARTIST * Assessment & Plan Note - Cara Guy NP - 12/25/2023 1:25 PM STUDIO ARTIST Associated Problem(s): Ulcerative pancolitis with complication (CMS/HCC) (HCC) Patient is a 63 y.o. female with a history of hypertension, type 2 diabetes, and inflammatory boweldisease who [facility] for progressive weight loss and nausea in the setting of multiple admissions for diverticulitis complicated by contained sigmoid perforation, scattered liver and spleen abscesses and adnexal mass. She was admitted to [facility] on 11/24 for further workup and ID [...] processes. Near resolution of hepatic and splenic abs cesses. Cystic R adnexal lesion w/o focus of elevated FDG uptake. Hypermetabolic soft tissue nodulein pelvic peritoneum and within a fat-containing umbilical hernia. Left colon 12/23: enterococcus faecium, klebsiella pneumoniae, mixed micro Patient went to the OR 12/23 with TEAR DOWN MATCHER, CRS and urology for ex lap, left colectomy with end colostomy, LIBRA, BSO and ureteral stent placement. Surgery reporting source control archived. Given source control has been achieved, we are planning on 5 days of antibiotics from surgery. On assessment today, patient reports minimal use of her OVEN HEATER and that she typically has abdominal discomfort with causing. Encouraged ambulation and IS use. Reviewed ID involvement in care and plan tostop antibiotics 5 days from surgery. Questions answered [...] hesitate to reach out. ID signing off IO ARTIST IO ARTIST * Consults, Subsequent - Cara Guy NP - 12/25/2023 5:00 AM STUDIO ARTIST Infectious Disease Subsequent Consult Note Infectious Disease Team: General 4 Contact Information: Please see [facility] Treatment Team listing for up-to-date contact information. Subjective Chief complaint of Spleen and liver abscesses, contained perforation, lung nodules with cavitation Interval History: -Patient went to the OR with TEAR DOWN MATCHER, CRS and urology yesterday. Per surgery, source control archived. Operative cultures obtained and growing enterococcus. Recommend adding linezolid to regimen. Continue Zosyn -anticipating 5 days of antibiotics from surgery -please obtain chest CT to assess lung nodules with cavitation. Previous imaging on 12/03 indicate improvement. Objective Anti-infectives (From admission, onward) Start Dose/Rate Route Frequency Ordered Stop 12/25/23 0830 piperacillin-tazobactam (ZOSYN) 3.375 gram/65 mL in sodium chloride 0.9% (premix) 3.375 g 3.375 g 130 mL/hr over 30 Minutes intravenous Every 6 hours scheduled 12/25/23 0740 Vitals: 24hr Min/Max: Temp Min: 36.1 ??C (97 ??F) Max: 37 ??C (98.6 ??F) Pulse Min: 89 Max: 99 BP Min: 80/44 Max: 120/62 Resp Min: 15 Max: 19 SpO2 Min: 94 % Max: 100 % Most Recent : Vitals: 12/25/23 1205 BP: 100/50 Pulse: Resp: Temp: SpO2: I/O last 2 completed shifts: In: 2710 [P.O.:200; I.V.:2000; IV Piggyback:510] Out: 1335 [Urine:285; Stool:800; Blood:250] Active LDAs: Peripheral IV 20 G Anterior;Distal;Left Forearm (Active) Number of days: Peripheral IV 12/24/23 18 G Right Hand (Active) Number of days: 1 Urethral Catheter Non-latex;Temperature probe (Active) Number of days: 1 Ostomy 12/24/23 Colostomy LUQ (Active) Number of days: 1 Physical Exam: Physical Exam Constitutional: General: She is not in acute distress. HENT: Head: Normocephalic and atraumatic. Nose: Nose normal. Mouth/Throat: Mouth: Mucous membranes are moist. Cardiovascular: Rate and Rhythm: Normal rate and regular rhythm. Pulmonary: Effort: Pulmonary effort is normal. No respiratory distress. Breath sounds: Normal breath sounds. Abdominal: Palpations: Abdomen is soft. Tenderness: There is abdominal tenderness. Skin: General: Skin is warm and dry. Findings: No rash. Neurological: General: No focal deficit present. Mental Status: She is alert and oriented to person, place, and time. Mental status is at baseline. Psychiatric: Mood and Affect: Mood normal. Behavior: Behavior normal. Thought Content: Thought content normal. Lab/Radiology/Diagnostic Review: Lab Results Component Value Date MICROBIOLOGY (.) 12/24/2023 Preliminary Report: Abundant Enterococcus faecium Susceptibility testing results to follow. MICROBIOLOGY Preliminary Report: No growth of fungus to date 12/24/2023 MICROBIOLOGY Final Report: No growth 12/09/2023 MICROBIOLOGY Final Report: No growth 12/09/2023 MICROBIOLOGY Final Report: No growth 12/04/2023 Radiology results were reviewed. No results found. No results found. Assessment/Plan Ulcerative pancolitis with complication (CMS/HCC) (HCC) Assessment & Plan Patient is a 63 y.o. female with a history of hypertension, type 2 diabetes, and inflammatory boweldisease who is [facility] for progressive weight loss and nausea in the setting of multiple admissions for diverticulitis complicated by contained sigmoid perforation, scattered liver and spleen abscesses and adnexal mass. She was admitted to [facility] on 11/24 for further workup and ID [...] processes. Near resolution of hepatic and splenic abs cesses. Cystic R adnexal lesion w/o focus of elevated FDG uptake. Hypermetabolic soft tissue nodulein pelvic peritoneum and within a fat-containing umbilical hernia. Left colon 12/23: enterococcus faecium. Patient went to the OR yesterday with TEAR DOWN MATCHER, CRS and urology for ex lap, left colectomy with end colostomy, LIBRA, BSO and ureteral stent placement. Surgery reporting source control archived. Operative cultures obtained and growing enterococcus faecium. Given source control has been achieved, we are planning on 5 days of antibiotics from surgery. Difficult to interpret operative cultures given specimen is called left colon and there is likely to be stool in addition to residual abscess. However, would recommend treating and starting patient on linezolid in addition to the Zosyn. Recommendations. -Continue zosyn as ordered. Please start linezolid 600mg PO Q12H -While on the IV antibiotics, please obtain a weekly cbc with diff and CMP to antibiotic toxicity monitoring -Anticipating a brief course of antibiotics given surgical intervention -Thank you for allowing us to participate in the care of this patient. For questions or concerns, please do not hesitate to reach out. Hepatic abscess Assessment & Plan Near resolution of hepatic and splenic abscesses. No plans for repeat imaging given improvement. Continue antibiotics as described elsewhere. Pulmonary nodule Assessment & Plan Patient is a 63 y.o. female with a history of hypertension, type 2 diabetes, and inflammatory boweldisease who is [facility] for progressive weight loss and nausea in the setting of multiple admissions for diverticulitis complicated by contained sigmoid perforation, scattered liver and spleen abscesses and adnexal mass. She was admitted to [facility] on 11/24 for further workup and ID [...] processes. Near resolution of hepatic and splenic abs cesses. Cystic R adnexal lesion w/o focus of elevated FDG uptake. Hypermetabolic soft tissue nodulein pelvic peritoneum and within a fat-containing umbilical hernia. Blood cultures 12/08: NGTD Reviewed all culture results with NGTD on mycology and AFB cultures. PET on 12/03 indicated decrease in pulm opacities. Please obtain repeat imaging to assess for further improvement. Patient reporting she has not been coughing like she used to. Recommendations: - Please obtain CT chest with contrast -Will follow up on results. Of note fungal and AFB cultures take several weeks to finalize -Thank you for allowing us to participate in the care of this patient. For questions or concerns, please do not hesitate to reach out. Splenic abscess Assessment & Plan Near resolution of hepatic and splenic abscesses. No plans for repeat imaging given improvement. Continue antibiotics as described elsewhere. Patient seen and plan formulated with Dr. Iverson. Cara Guy, Team 4 Infectious Diseases INDUSTRIAL SECURITY ANALYST Please contact the Team 4 ID INDUSTRIAL SECURITY ANALYST M-F, 7-3; or the Attending at the phone numbers in care team with any questions or concerns. After hours, please contact the ID fellow consular officer. Cosigned by Laury Iverson MD at 12/25/2023 4:28 PM STUDIO ARTIST IO ARTIST IO ARTIST Associated attestation - Laury Iverson MD - 12/25/2023 4:28 PM STUDIO ARTIST I have seen and examined the patient on 12/25/23 in conjunction with the non- physician provider. Interval Events: Patient underwent uncomplicated intra-abdominal surgery yesterday with gynecology oncology and colorectal surgery with intraoperative findings notable for incredibly inflamed left colon which has since been resected Physical Exam: Lying in bed, fatigued but no acute distress Lab/Radiology/Diagnostics Review: WBC 17.3 Operative cultures growing Enterococcus faecium Assessment/Plan: Continue piperacillin tazobactam and linezolid for postoperative management of her intra-abdominal infection Please obtain CT chest with contrast to evaluate lung nodules Today, I am treating the patient for intra-abdominal infection, splenic abscesses, pulmonary nodules with cavitation which can cause sepsis and in the short-term future in the absence of appropriate treatment, as described in the note. Estimated Creatinine Clearance: 49.2 mL/min (by C-G 65 yr and older- minimum SCr 0.8 based on SCr of 0.86 mg/dL). - reviewed; antibiotics recommended above are dosed accordingly. * Plan of Care - Katy Guidry RN - 12/25/2023 2:59 AM CST Problem: Discharge Planning Goal: Understanding discharge needs will improve Outcome: Progressing Problem: Fall Risk Goal: Ability to state ways to decrease the risk of falls will improve Outcome: Progressing Goal: Will remain free from falls Outcome: Progressing Goal: Will remain free from injury from falls Outcome: Progressing Problem: Skin Integrity Impairment Risk Goal: Mobility will improve Outcome: Progressing Goal: Understanding of ways to prevent future skin breakdown will improve Outcome: Progressing Goal: Nutritional status will improve Outcome: Progressing Goal: Risk for impaired skin integrity will decrease Outcome: Progressing Problem: Musculoskeletal Goal: Return mobility to safest level of function Outcome: Progressing Goal: Maintain proper alignment of affected body part Outcome: Progressing Goal: Return ADL status to a safe level of function Outcome: Progressing Goal: Ability to perform activities at highest level will improve Outcome: Progressing Goal: Mobility, ROM and muscle strength will improve Outcome: Progressing Goals: Clinical Goals for the Shift: post op vitals and ambulation, pain management, tolerate diet Summary: patient hypotensive overnight, 1 liter and one 500 ml bolus given, unable to complete ambulation due to patient being hypotensive, pain well managed, patient is tolerating clear diet. IO ARTIST * Post-Procedure Note - King Boss MD - 12/24/2023 8:24 PM STUDIO ARTIST Post-operative Assessment Subjective Pain controlled. Denies N/V. Denies chest pain, denies difficulty breathing. Objective Vitals: Vitals: 12/24/231954 BP: 114/52 Pulse: 96 Resp: Temp: SpO2: 97% Gen: A&OX3, no acute distress Pulm: non-labored breathing with symmetrical expansion CV: well-perfused extremities Abdominal: incision dressing c/d/I. Abdomen appropriately tender and non- distended. Colostomy pink and healthy appearing. Skin: wwp : saba in place draining dark red/brown urine Assessment MUTCH 63 y.o. female with hx of DM, HTN, and recently diagnosed IBD (originally thought to be UC but is now more likely to be Crohn's) who has persistent colitis of her sigmoid colon with microperforation,multiple abscesses of the liver and spleen, and now new left upper lobe lung lesions, some of whichare cavitary. She is not a candidate for anti-TNF treatment in the setting of her lung lesions until etiology is determined. Pt also has a new pelvic mass that requires resection Home meds: Losartan, Mesalamine PMHx: HTN, DM Now POD0 s/p 1. Cystoscopy with placement of bilateral ureteral stents please see urologist operative note for detail 2. Bilateral salpingo oophorectomy please see Dr. Rhodes's operative note for detail 3.Open Left Coletomy With end colostomy Doing well. Plan Neuro: MMPR CV: Vital Signs Stable Pulm: Incentive Spirometer GI: IV fluids, clear liquid diet, and continue Entereg until return of bowel function : continue saba ID: Flora-operative antibiotics Activity: OOB, Ambulate TID, PT/OT ordered VTE prophylaxis: SCDs, SQ injections Signed: Dani Boss MD Urologic Surgery PGY-1 12/24/23 at 8:25 PM Please call the Urology service phone number for questions about this patient's care. Cosigned by Yo Perez MD at 12/27/2023 1:20 PM STUDIO ARTIST IO ARTIST IO ARTIST * Perioperative Nursing Note - Pavel Ordonez RN - 12/24/2023 5:45 PM STUDIO ARTIST RN called MD Cohen; pt's dilaudid order is incorrect. Per MD will change it . Waiting on orders... IO ARTIST * Plan of Care - Queta Mayers RN - 12/24/2023 4:56 PM CST Goals: Clinical Goals for the Shift: Monitor vitals , labs promote safety and comfort Summary: Problem: Discharge Planning Goal: Understanding discharge needs will improve Outcome: Progressing Problem: Fall Risk Goal: Ability to state ways to decrease the risk of falls will improve Outcome: Progressing Goal: Will remain free from falls Outcome: Progressing Goal: Will remain free from injury from falls Outcome: Progressing Problem: Lack of Knowledge Goal: Ability to describe self care measures that may prevent or decrease complications related to Type 2 Diabetes will improve Outcome: Progressing Problem: Health Nutrition Goal: Nutritional intake and knowledge related to Diabetes will improve Outcome: Progressing Problem: Neurosensory Goal: Achieves maximal functionality and self care Outcome: Progressing Problem: Musculoskeletal Goal: Return mobility to safest level of function Outcome: Progressing Goal: Maintain proper alignment of affected body part Outcome: Progressing Goal: Return ADL status to a safe level of function Outcome: Progressing Goal: Ability to perform activities at highest level will improve Outcome: Progressing Goal: Mobility, ROM and muscle strength will improve Outcome: Progressing Problem: Gastrointestinal Goal: Minimal or absence of nausea and vomiting Outcome: Progressing Goal: Maintains or returns to baseline bowel function Outcome: Progressing Goal: Maintains adequate nutritional intake Outcome: Progressing Problem: Metabolic/Fluid and Electrolytes Goal: Electrolytes maintained within normal limits Outcome: Progressing Goal: Glucose maintained within prescribed range Outcome: Progressing Problem: Lack of Knowledge Goal: Ability to develop a pain control plan will improve Outcome: Progressing Problem: Medication Goal: Satisfaction with pain management medication regimen will improve Outcome: Progressing Problem: Sensory Goal: Ability to identify factors that increase pain levels will improve while working to decrease the patient's pain levels Outcome: Progressing Problem: Coping Goal: Ability to cope will improve Outcome: Progressing Problem: Health Behavior Goal: Identification of resources available to assist in meeting health care needs will improve Outcome: Progressing Problem: Respiratory Goal: Achieves optimal ventilation and oxygenation Outcome: Progressing Goal: Ability to maintain a clear airway will improve Outcome: Progressing Problem: Skin/Tissue Integrity Goal: Incisions, wounds, or drain sites healing without S/S of infection Outcome: Progressing Problem: Infection Goal: Absence of infection during hospitalization Outcome: Progressing Problem: Isolation Lack of Knowledge Goal: Knowledge of risk factors and measures for prevention of condition will improve Outcome: Progressing Problem: Isolation Physical Regulation Goal: Isolation- Spread of further infection will be prevented Outcome: Progressing Goal: Isolation- Complications related to the disease process, condition, or treatment will be avoided or minimized. Outcome: Progressing Problem: Hematologic Goal: Maintains hematologic stability Outcome: Progressing Problem: Skin Integrity Impairment Risk Goal: Mobility will improve Outcome: Progressing Goal: Understanding of ways to prevent future skin breakdown will improve Outcome: Progressing Goal: Nutritional status will improve Outcome: Progressing Goal: Risk for impaired skin integrity will decrease Outcome: Progressing Problem: Genitourinary Goal: Absence of urinary retention Outcome: Progressing Problem: Cardiovascular Goal: Maintains optimal cardiac output and hemodynamic stability Outcome: Progressing Goal: Absence of cardiac dysrhythmias or at baseline Outcome: Progressing IO ARTIST * Op Emely - Jak Meehan MD - 12/24/2023 12:31 PM CST OPERATIVE REPORT Patient Name: DARIUS RUSSO : 1960 Operative date: 12/24/23 Preoperative diagnosis: Crohn's with microperforation and abdominal abscesses Postoperative diagnosis: same Procedure: Cystoscopy with bilateral temporary ureteral stent placement Surgeon: Jak Meehan MD White Lead Filterer: Flako Santacruz Anesthesia: General anesthesia Indications: Darius Russo is a 63 y.o. female with persistent colitis of her sigmoid colon with microperforation, multiple abscesses of the liver and spleen, left upper lobe lung lesions, pleural effusion, adnexal mass undergoing evaluation for L colon resection. Urology assistance was requested for bilateral preoperative temporary stent placement. Findings: Normal cystoscopy Description of procedure: Informed consent was obtained. Patient was placed in a low lithotomy position. Patient's genitals were prepped and draped sterilely. A rigid cystoscope was advanced into the bladder per urethra. The urethra and the bladder mucosa looked normal. We cannulated bilateral ureteral orifices with 5 [place] whistle-tip ureteral catheters without any resistance, difficulty, or bleeding. We removed the cystoscope while maintaining the stents in position. We then placed a Saba catheter per urethra alongside the stents and injected 10 cc fluid into the balloon. We secured the externalized ureteral stents to the Saba catheter with a suture tie. I was present and participated in the cystoscopy and preoperative stent placement portion of the procedure. Complications: None Estimated blood loss: Minimal Specimen: None Implant: None Drains: 1. Bilateral 5 [place] internal-external ureteral catheters 2. Saba catheter Disposition: Patient will be turned over to the care under the primary team. The ureteral catheters and Saba catheter may be removed per primary team. I was present for the brown portion of the procedure: The brown portions were stent placement. I was immediately available for the remainder of the procedure. Jak Meehan MD IO ARTIST * Op Note - Quinton Moe MD - 12/24/2023 12:31 PM CST Operative Note Attending Surgeon: Melissa Rhodes MD Surgical Team: Surgeons and Role: Panel 1: * Yo Perez MD - Primary Panel 2: * Melissa Rhodes MD - Primary * Mau Trotter MD - Resident - Assisting * Quinton Moe MD - Fellow Panel 3: * Jak Meehan MD - Primary * Flako Santacruz MD - Resident - Assisting DATE OF SURGERY : 12/24/2023 Preoperative Diagnosis: Pre-op Diagnosis * Ulcerative pancolitis with complication (CMS/HCC) (HCC) [K51.019] * Adnexal mass Postoperative Diagnosis: Post-op Diagnosis * Ulcerative pancolitis with complication (CMS/HCC) (HCC) [K51.019] * Adnexal mass Name of Operation: Procedure(s): TOTAL ABDOMINAL HYSTERECTOMY/ BILATERAL SALPINGO-OOPHORECTOMY (PRE OP URETERAL STENTS BY UROLOGY LEFT COLECTOMY & END COLOSTOMY BY DR. PEREZ ) Indication for Procedure: Darius Russo is a 63 y.o. who initially presented with IBD and microperforation that failed medical management. A secondary school registrar US at OSH 09/07 also identified a 15.1 cm complex cystic lesion in R pelvis. Tumor markers 09/2023 were notable for CEA 3.2, CA19-9 9.4, CA-125 104. She desired definitive management at the time of colorectal surgical exploration. Operative Findings: EUA: Normal external genitalia. Small, mobile uterus. Palpable, mobile adnexal mass. Laparotomy: At time of secondary school registrar onc team arrival, no intra-abdominal adhesive disease. Thickened, irregular matted bowel mass in the left lower quadrant with overlying thickened and irregular omentum. Uterus, right tube and ovary normal appearing. Left ovary enlarged and obliterated by thin-walled cystic simple- appearing mass. No metastatic implants noted in abdomen or pelvis. Frozen: Mucinous cystadenoma Description Of Procedure After obtaining the appropriate operative consents, the patient was taken to the operating room, where general anesthesia was obtained without difficulty and found to be adequate. She was then examined, prepped and draped in the normal sterile fashion and positioned [facility] the [facility] position[facility] with SCDs in place. The urologic surgery team placed intraoperative ureteral stents and a Saba catheter was inserted. A midline vertical skin incision was made and abdominal access obtained by the colorectal surgery team. The abdomen and pelvis were surveyed for the above operative findings and the gynecologic oncology team was called to complete our portion. The bowel was packed with moist laps and a Bookwalter retractor was placed. Two Kellys were placed on the cornua and used for retraction. The round ligament on the left was suture ligated with 0 Vicryl and transected with electrocautery. The anterior and posterior leaflets of the broad ligament were and incised with electrocautery. The retroperitoneum was developed and explored to identify the ureter which was palpated with stent in place. A window was made in the avascular space of Graves. The infundibulopelvic ligament was doubly clamped, transected, and suture ligated with 0 Vicryl. The posterior leaflet of the broad ligament was transected to the level of the uterine vessels. The left utero-ovarian ligament and Fallopian tube were then doubly clamped and amputated from the uterine cornu to send for frozen section evaluation. The same was repeated on the right and the adnexa was remained intact at the uterine cornu. The anterior leaf of the broad ligament was incised along the bladder reflection to the midline from both sides. The bladder was gently dissected off the lower uterine segment and the cervix using careful electrocautery and blunt dissection. The uterine arteries were then skeletonized bilaterally, clamped with curved Zeppelin clamps, transected, and suture ligated with 0 Vicryl. Serial lateralizing cardinal ligament bites were taken with straight Zeppelin clamps and suture ligated down to the level of the external cervical os. Hemostasis was excellent. Strongly curved Zeppelin clamps were placed below the level of the external cervical os bilaterally. The cervix and uterus were amputated using Brianna scissors. The vaginal cuff was closed in a running fashion from the midline to each apex with 0 Vicryl, with removal of clamps and tightening of sutures prior to running the sutures back to the midline. Excellent hemostasis was noted. The frozensection pathology returned benign. The pelvis was irrigated copiously with warmed normal saline and all laparotomy sponges and instruments were removed from the abdomen. The case was then turned back over to the colorectal surgery team for completion of their portion. Estimated Blood Loss: 50 mL for secondary school registrar portion Urine Output: See final operative report Intraoperative Fluids: See final operative report Specimens: ID Type Source Tests Collected by Time 1 : pelvic washings Fluid Pelvic Washing (Cytology) CYTOLOGY Yo Perez MD 12/24/2023 1249 A : left tube & ovary Tissue Ovary(ies) with or without tube, tumor SURGICAL PATHOLOGY Yo Perez MD 12/24/2023 1257 B : uterus, cervix, right ovary & tube Tissue Uterus with/without tubes & ovaries, Neoplastic SURGICAL PATHOLOGY Yo Perez MD 12/24/2023 1316 Complications: None Sponge/Instrument/Needle Counts: The sponge, lap and needle counts were correct x 2. Condition on Discharge from the operating room was stable The Attending, Yo Perez MD, was present for the entire procedure Quinton Moe MD 12/24/2023 2:12 PM Cosigned by Melissa Rhodes MD at 12/30/2023 9:45 AM STUDIO ARTIST IO ARTIST IO ARTIST Associated attestation - Melissa Rhodes MD - 12/30/2023 9:45 AM STUDIO ARTIST I was present for the entire portion of the gynecologic procedure. * Op Note - Yo Perez MD - 12/24/2023 12:31 PM CST SURGEON Yo Perez MD Co Surgeon: Melissa Taylor expertise was required for the hysterectomy as this is outside my area and scope of practice [employer]ECUT[employer] Vicki King PREOPERATIVE DIAGNOSIS Perforated colitis POSTOPERATIVE DIAGNOSIS Same PROCEDURE 1. Cystoscopy with placement of bilateral ureteral stents please see urologist operative note for detail 2. Bilateral salpingo oophorectomy please see Dr. Rhodes's operative note for detail 3.Open Left Coletomy With end colostomy ANESTHESIA General per endotracheal tube. INDICATIONS FOR PROCEDURE 63-year-old woman with left-sided colitis versus perforated diverticulitis. This has not been improving with medical management and continues to get worse. Endoscopically it is unclear what this ultimately represents. She also had a large left ovarian cyst therefore we she was brought to the operating room for resection of both. OPERATIVE FINDINGS The colon left colon sigmoid colon was incredibly inflamed and stuck together with an associated abscess. The proximal colon was grossly normal. The rectum was inflamed but unclear whether this was secondary or primary This procedure was not performed to treat colon cancer through resection Infection present at the time of surgery as evidenced by abscess. OPERATIVE PROCEDURE With informed consent, patient was brought to the operating room, placed in the supine position. They were given 1 g of IV ertapenem and this covered the perioperative antibiotics. Pneumatic compression stockings were placed on the lower extremities bilaterally. General anesthesia was then induced.The endotracheal tube was placed secured and a the patient was placed in a modified lithotomy position with the use of Yellofin stirrups. Urology came in and placed bilateral ureteral stents please see their operative note for details. The abdomen was then prepped and draped in usual sterile fashion. We entered the abdomen through a midline incision and once the abdomen was completely open, It was explored. There was some small bowel that was stuck to this area in the colon. With a combination of sharp and blunt dissection it was very carefully and tediously taken down. The small bowel appeared grossly normal. Therefore at this point Dr. Rhodes an her service came in and performed the hysterectomy please see their operative note for details.. Bookwalter retractor was assembled, and the small bowel was then packed to the right upper quadrant. We began mobilization of the left colon as we incised the lateral attachments of the sigmoid colon breaking into the retroperitoneal plane as wethen medialized the left colon identifying the left ureter and reflecting it into the retroperitoneum. We encountered the most inflammation at the descending colon. As we were able to elevate this off the retroperitoneum.We then continued to mobilize the colon as we headed up towards the splenic flexure by incising the lateral attachments along the lateral sidewall. We then entered the lesser sacby the omentum from the transverse colon and once the lesser sac was completely open, wedivided the posterior attachments along the inferior border of the pancreas. The colon was now completely medialized. We then got underneath the superior rectal artery at the level of sacral promontory and we elevated this off the retroperitoneum and isolated it at its origin. It was then divided between clamps, tying with 0 Vicryl ties after we ensured that the left ureter was clearly out of harm's way. We then elevated the inferior mesenteric vein off the retroperitoneum and isolated the inferior border of the pancreas. This was then divided between clamps and tied with 0 Vicryl ties. We then identified our proximal site of transection as the mesentery was then divided between clamps, tying with 0 Vicryl ties at the level of marginal artery. This was isolated, divided, had excellent pulsatile flow, was then clamped and tied with an 0 Vicryl tie. We then divided the bowel at the level of the proximal descending colon with a firing of an 80 mm JAY stapler. We then mobilize the upper rectum to get down to normal appearing rectum. We then entered the avascular plane of the presacral space posteriorly continuing our dissection posteriorly as well as laterally all the way down to the level of our distal site of transection. We then scored the mesorectum and a right angle creating a window posterior to the rectum. Once we were clearly well below the tumor the rectum was then stapled and divided with a firing of a 40 mm curvilinear cutting stapler. Theintervening mesentery was then divided between clamps and tied with 0 Vicryl ties. We then created a stoma aperture in the left upper quadrant. It was a quarter-sized disc of skin was excised. It wasall the way down to the level of the fascia which was then incised a vertical fashion. Muscle was split along its fibers and was then dilated 2 fingerbreadths. We then brought the colostomy up through the stoma aperture making sure that there was no twist in the left colon mesentery. It was securedto the skin with a Genna clamp. We then closed the midline incision with a #1 looped PDS suture. We used 2 sutures, once on the inferior aspect of the wound once on the superior aspect of the wound. They were run in continuous fashion tied in the middle. Wounds were irrigated with normal saline. The skin was then closed with jesu. We then matured the colostomy as the staple line was excised and the colostomy was then matured in a simple fashion with interrupted 3-0 Vicryl sutures.Patient to lerated the procedure well, was then taken to postanesthesia recovery in stable condition. Sponge, instrument, needle counts were correct. TOTAL IV FLUIDS See anesthesia note. ESTIMATED BLOOD LOSS Two hundred cc SPECIMEN Left colon Of note I, Dr. Perez, was present for the entire case. IO ARTIST * Plan of Care - Kerline Hartmann RN - 12/24/2023 1:44 AM CST Goals: Clinical Goals for the Shift: Monitor vitals , labs promote safety and comfort Summary: IO ARTIST * Plan of Care - Meka Ackerman RN - 12/23/2023 10:02 AM CST Goals: Clinical Goals for the Shift: Monitor vitals , labs promote safety and comfort Summary: Problem: Discharge Planning Goal: Understanding discharge needs will improve Outcome: Progressing Problem: Fall Risk Goal: Ability to state ways to decrease the risk of falls will improve Outcome: Progressing Goal: Will remain free from falls Outcome: Progressing Goal: Will remain free from injury from falls Outcome: Progressing Problem: Skin Integrity Impairment Risk Goal: Mobility will improve Outcome: Progressing Goal: Understanding of ways to prevent future skin breakdown will improve Outcome: Progressing Goal: Nutritional status will improve Outcome: Progressing Goal: Risk for impaired skin integrity will decrease Outcome: Progressing Problem: Lack of Knowledge Goal: Ability to describe self care measures that may prevent or decrease complications related to Type 2 Diabetes will improve Outcome: Progressing Problem: Health Nutrition Goal: Nutritional intake and knowledge related to Diabetes will improve Outcome: Progressing Problem: Neurosensory Goal: Achieves maximal functionality and self care Outcome: Progressing Problem: Musculoskeletal Goal: Return mobility to safest level of function Outcome: Progressing Goal: Maintain proper alignment of affected body part Outcome: Progressing Goal: Return ADL status to a safe level of function Outcome: Progressing Goal: Ability to perform activities at highest level will improve Outcome: Progressing Goal: Mobility, ROM and muscle strength will improve Outcome: Progressing Problem: Gastrointestinal Goal: Minimal or absence of nausea and vomiting Outcome: Progressing Goal: Maintains or returns to baseline bowel function Outcome: Progressing Goal: Maintains adequate nutritional intake Outcome: Progressing Problem: Metabolic/Fluid and Electrolytes Goal: Electrolytes maintained within normal limits Outcome: Progressing Goal: Glucose maintained within prescribed range Outcome: Progressing Problem: Respiratory Goal: Achieves optimal ventilation and oxygenation Outcome: Progressing Goal: Ability to maintain a clear airway will improve Outcome: Progressing Problem: Skin/Tissue Integrity Goal: Incisions, wounds, or drain sites healing without S/S of infection Outcome: Progressing Problem: Hematologic Goal: Maintains hematologic stability Outcome: Progressing Problem: Lack of Knowledge Goal: Ability to develop a pain control plan will improve Outcome: Progressing IO ARTIST * Plan of Care - Kerline Hartmann RN - 12/22/2023 11:54 PM CST Problem: Discharge Planning Goal: Understanding discharge needs will improve Outcome: Progressing Problem: Fall Risk Goal: Ability to state ways to decrease the risk of falls will improve Outcome: Progressing Goal: Will remain free from falls Outcome: Progressing Goal: Will remain free from injury from falls Outcome: Progressing Problem: Skin Integrity Impairment Risk Goal: Mobility will improve Outcome: Progressing Goal: Understanding of ways to prevent future skin breakdown will improve Outcome: Progressing Goal: Nutritional status will improve Outcome: Progressing Goal: Risk for impaired skin integrity will decrease Outcome: Progressing Problem: Lack of Knowledge Goal: Ability to describe self care measures that may prevent or decrease complications related to Type 2 Diabetes will improve Outcome: Progressing Problem: Health Nutrition Goal: Nutritional intake and knowledge related to Diabetes will improve Outcome: Progressing Problem: Musculoskeletal Goal: Return mobility to safest level of function Outcome: Progressing Goal: Maintain proper alignment of affected body part Outcome: Progressing Goal: Return ADL status to a safe level of function Outcome: Progressing Goal: Ability to perform activities at highest level will improve Outcome: Progressing Goal: Mobility, ROM and muscle strength will improve Outcome: Progressing Problem: Gastrointestinal Goal: Minimal or absence of nausea and vomiting Outcome: Progressing Goal: Maintains or returns to baseline bowel function Outcome: Progressing Goal: Maintains adequate nutritional intake Outcome: Progressing Problem: Metabolic/Fluid and Electrolytes Goal: Electrolytes maintained within normal limits Outcome: Progressing Goal: Glucose maintained within prescribed range Outcome: Progressing Problem: Skin/Tissue Integrity Goal: Incisions, wounds, or drain sites healing without S/S of infection Outcome: Progressing Problem: Infection Goal: Absence of infection during hospitalization Outcome: Progressing Problem: Hematologic Goal: Maintains hematologic stability Outcome: Progressing Problem: Genitourinary Goal: Absence of urinary retention Outcome: Progressing Problem: Cardiovascular Goal: Maintains optimal cardiac output and hemodynamic stability Outcome: Progressing Goal: Absence of cardiac dysrhythmias or at baseline Outcome: Progressing Goals: Clinical Goals for the Shift: Monitor vitals , labs promote safety and comfort Summa IO ARTIST * Consults, Subsequent - Jyotsna Patton MD PhD - 12/22/2023 1:28 PM STUDIO ARTIST Brief GI update -NAEO -awaiting surgery 12/23 Darius Russo is a 63 y.o. female with PMH HTN, T2DM, s/p cholecystectomy, a large adnexal mass c/f malignancy, and suspected crohn???s colitis who presents for contained sigmoid perf and FTT. 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 She was admitted with the plan to initiate IFX, however she had new symptoms of a cough and CT showing cavitary pulmonary nodules as well as increased pericolonic fluid collection. Both of these findings pose significant barriers to initiating abx. While mycobacterial/fungal infection causing thesecavitary lesions in the lung are still possible, their interval improvement without directed therapy is reassuring. Progressive worsening of her sigmoid phlegmon this admission however still poses a contraindication to IFX initiation. Additionally, she has had 2 episodes of fevers, chills, diaphoresis, hypotension and tachycardia this admission which are presumably 2/2 translocation form her worsening sigmoid perf/fluid collection. These required escalation of abx to IV ertapenem during these episodes. Recommendations: - plan for combined resection with CRS and ObGyn on 12/23. Previously discussed with them if recurrent SIRS 2/2 colonic fluid collection would influence more urgent surgical intervention - abx per primary/ID - Cont optimization of nutritional status. TPN not viable given intraabdominal fluid collection with mircroabscesses and possible infectious process involving lungs - Not a candidate for IBD medical therapy pending surgical intervention We will continue to follow-up with you. Thank you for involving us in the care of this patient. If you have any questions, please call the private GI pager during weekdays or the [facility] phone during after hours and weekends. Jyotsna Patton MD PhD GI Fellow Cosigned by Shyane Cihng MD at 12/25/2023 7:58 AM STUDIO ARTIST IO ARTIST IO ARTIST Associated attestation - Shayne Ching MD - 12/25/2023 7:58 AM STUDIO ARTIST I have seen and examined the patient on 12/22/2023. I agree with the findings and plan of care as documented in the resident's/fellow's note.. * Plan of Care - Dariana Cramer RN - 12/22/2023 1:12 PM CST 12/22/23 1312 Discharge Planning Support System Spouse/Significant Other;Family members Anticipated discharge level of care Private residence Does the patient need discharge transport arranged? No (family to provide transportation) Discharge Transportation Communication Mode of transport has been discussed with the patient/family. All are agreeable to the plan and understand their responsibilities to ensure the safe transfer. No further CM/SW intervention is anticipated at this time. Post Acute Care Plan Home Care Services N/A OP Services N/A DME N/A Post Acute Care Facility N/A CM Progression of Care Update Per Medical Chart/Rounds/IDR: Patient is not medically ready for discharge ADD: 12-25 Discharge Barriers: No anticipated discharge barriers Education Needs Identified (plan): Pending CRS surgery(Colectomy) 12/23. Plan to transfer to [facility]. No anticipated home care needs at this time F/U Appointments: Pending Patient's Identified Problem/Goal Problem:?Ensure acute medical needs are met and that patient has a safe discharge plan. Goal:?Secure a discharge plan that patient/family are agreeable with?and ensure patient has continuum of care. Patient and/or family are agreeable with plan. workers compensation manager will continue to follow and assist with discharge planning as needed. If any further discharge needs arise, please contact the covering embedded case manager. Dariana Cramer RN,BSN,CM IO ARTIST * Plan of Care - Meka Ackerman RN - 12/22/2023 8:21 AM CST Goals: Clinical Goals for the Shift: Monitor vitals , labs promote safety and comfort Summary: Problem: Discharge Planning Goal: Understanding discharge needs will improve Outcome: Progressing Problem: Fall Risk Goal: Ability to state ways to decrease the risk of falls will improve Outcome: Progressing Goal: Will remain free from falls Outcome: Progressing Goal: Will remain free from injury from falls Outcome: Progressing Problem: Skin Integrity Impairment Risk Goal: Mobility will improve Outcome: Progressing Goal: Understanding of ways to prevent future skin breakdown will improve Outcome: Progressing Goal: Nutritional status will improve Outcome: Progressing Goal: Risk for impaired skin integrity will decrease Outcome: Progressing Problem: Lack of Knowledge Goal: Ability to describe self care measures that may prevent or decrease complications related to Type 2 Diabetes will improve Outcome: Progressing Problem: Health Nutrition Goal: Nutritional intake and knowledge related to Diabetes will improve Outcome: Progressing Problem: Neurosensory Goal: Achieves maximal functionality and self care Outcome: Progressing Problem: Musculoskeletal Goal: Return mobility to safest level of function Outcome: Progressing Goal: Maintain proper alignment of affected body part Outcome: Progressing Goal: Return ADL status to a safe level of function Outcome: Progressing Goal: Ability to perform activities at highest level will improve Outcome: Progressing Goal: Mobility, ROM and muscle strength will improve Outcome: Progressing Problem: Respiratory Goal: Achieves optimal ventilation and oxygenation Outcome: Progressing Goal: Ability to maintain a clear airway will improve Outcome: Progressing Problem: Skin/Tissue Integrity Goal: Incisions, wounds, or drain sites healing without S/S of infection Outcome: Progressing IO ARTIST * Plan of Andres - Lea Jackson RN - 12/22/2023 4:41 AM CST Problem: Discharge Planning Goal: Understanding discharge needs will improve Outcome: Progressing Problem: Fall Risk Goal: Ability to state ways to decrease the risk of falls will improve Outcome: Progressing Goal: Will remain free from falls Outcome: Progressing Goal: Will remain free from injury from falls Outcome: Progressing Problem: Skin Integrity Impairment Risk Goal: Mobility will improve Outcome: Progressing Goal: Understanding of ways to prevent future skin breakdown will improve Outcome: Progressing Goal: Nutritional status will improve Outcome: Progressing Goal: Risk for impaired skin integrity will decrease Outcome: Progressing Problem: Lack of Knowledge Goal: Ability to describe self care measures that may prevent or decrease complications related to Type 2 Diabetes will improve Outcome: Progressing Problem: Health Nutrition Goal: Nutritional intake and knowledge related to Diabetes will improve Outcome: Progressing Problem: Neurosensory Goal: Achieves maximal functionality and self care Outcome: Progressing Problem: Musculoskeletal Goal: Return mobility to safest level of function Outcome: Progressing Goal: Maintain proper alignment of affected body part Outcome: Progressing Goal: Return ADL status to a safe level of function Outcome: Progressing Goal: Ability to perform activities at highest level will improve Outcome: Progressing Goal: Mobility, ROM and muscle strength will improve Outcome: Progressing Problem: Gastrointestinal Goal: Minimal or absence of nausea and vomiting Outcome: Progressing Goal: Maintains or returns to baseline bowel function Outcome: Progressing Goal: Maintains adequate nutritional intake Outcome: Progressing Problem: Metabolic/Fluid and Electrolytes Goal: Electrolytes maintained within normal limits Outcome: Progressing Goal: Glucose maintained within prescribed range Outcome: Progressing Problem: Respiratory Goal: Achieves optimal ventilation and oxygenation Outcome: Progressing Goal: Ability to maintain a clear airway will improve Outcome: Progressing Problem: Skin/Tissue Integrity Goal: Incisions, wounds, or drain sites healing without S/S of infection Outcome: Progressing Problem: Infection Goal: Absence of infection during hospitalization Outcome: Progressing Problem: Genitourinary Goal: Absence of urinary retention Outcome: Progressing Problem: Cardiovascular Goal: Maintains optimal cardiac output and hemodynamic stability Outcome: Progressing Goal: Absence of cardiac dysrhythmias or at baseline Outcome: Progressing Problem: Lack of Knowledge Goal: Ability to develop a pain control plan will improve Outcome: Progressing Problem: Medication Goal: Satisfaction with pain management medication regimen will improve Outcome: Progressing Problem: Health Behavior Goal: Identification of resources available to assist in meeting health care needs will improve Outcome: Progressing Problem: Isolation Lack of Knowledge Goal: Knowledge of risk factors and measures for prevention of condition will improve Outcome: Progressing Problem: Isolation Physical Regulation Goal: Isolation- Spread of further infection will be prevented Outcome: Progressing Goal: Isolation- Complications related to the disease process, condition, or treatment will be avoided or minimized. Outcome: Progressing Goals: Clinical Goals for the Shift: Monitor vitals , labs promote safety and comfort Summary: Vitals stable , intake improved, denies pain , safety maintained. IO ARTIST * Plan of Care - Carmen Verde - 12/21/2023 5:03 PM CST Goals: Clinical Goals for the Shift: monitor labs and vitals, maintain comfort and safety Summary: Pt A+O, RA, VSS. Pt received medications as prescribed. Pt had no safety events during shift. Pt currently resting comfortably, bed in lowest position, call light within reach. Will continueto monitor until safe handoff performed. IO ARTIST * Plan of Care - Kaylah Portillo RN - 12/21/2023 5:39 AM CST Problem: Discharge Planning Goal: Understanding discharge needs will improve Outcome: Progressing Problem: Fall Risk Goal: Ability to state ways to decrease the risk of falls will improve Outcome: Progressing Goal: Will remain free from falls Outcome: Progressing Goal: Will remain free from injury from falls Outcome: Progressing Problem: Lack of Knowledge Goal: Ability to describe self care measures that may prevent or decrease complications related to Type 2 Diabetes will improve Outcome: Progressing Problem: Health Nutrition Goal: Nutritional intake and knowledge related to Diabetes will improve Outcome: Progressing Problem: Neurosensory Goal: Achieves maximal functionality and self care Outcome: Progressing Problem: Musculoskeletal Goal: Return mobility to safest level of function Outcome: Progressing Goal: Maintain proper alignment of affected body part Outcome: Progressing Goal: Return ADL status to a safe level of function Outcome: Progressing Goal: Ability to perform activities at highest level will improve Outcome: Progressing Goal: Mobility, ROM and muscle strength will improve Outcome: Progressing Problem: Gastrointestinal Goal: Minimal or absence of nausea and vomiting Outcome: Progressing Goal: Maintains or returns to baseline bowel function Outcome: Progressing Goal: Maintains adequate nutritional intake Outcome: Progressing Problem: Metabolic/Fluid and Electrolytes Goal: Electrolytes maintained within normal limits Outcome: Progressing Goal: Glucose maintained within prescribed range Outcome: Progressing Problem: Lack of Knowledge Goal: Ability to develop a pain control plan will improve Outcome: Progressing Problem: Medication Goal: Satisfaction with pain management medication regimen will improve Outcome: Progressing Problem: Sensory Goal: Ability to identify factors that increase pain levels will improve while working to decrease the patient's pain levels Outcome: Progressing Problem: Coping Goal: Ability to cope will improve Outcome: Progressing Problem: Health Behavior Goal: Identification of resources available to assist in meeting health care needs will improve Outcome: Progressing Problem: Respiratory Goal: Achieves optimal ventilation and oxygenation Outcome: Progressing Goal: Ability to maintain a clear airway will improve Outcome: Progressing Problem: Skin/Tissue Integrity Goal: Incisions, wounds, or drain sites healing without S/S of infection Outcome: Progressing Problem: Infection Goal: Absence of infection during hospitalization Outcome: Progressing Problem: Isolation Lack of Knowledge Goal: Knowledge of risk factors and measures for prevention of condition will improve Outcome: Progressing Problem: Isolation Physical Regulation Goal: Isolation- Spread of further infection will be prevented Outcome: Progressing Goal: Isolation- Complications related to the disease process, condition, or treatment will be avoided or minimized. Outcome: Progressing Problem: Hematologic Goal: Maintains hematologic stability Outcome: Progressing Problem: Skin Integrity Impairment Risk Goal: Mobility will improve Outcome: Progressing Goal: Understanding of ways to prevent future skin breakdown will improve Outcome: Progressing Goal: Nutritional status will improve Outcome: Progressing Goal: Risk for impaired skin integrity will decrease Outcome: Progressing Problem: Genitourinary Goal: Absence of urinary retention Outcome: Progressing Problem: Cardiovascular Goal: Maintains optimal cardiac output and hemodynamic stability Outcome: Progressing Goal: Absence of cardiac dysrhythmias or at baseline Outcome: Progressing Goals: Clinical Goals for the Shift: pt VS and labs will remain at baseline, continue ABX, monitor stool outpuit Summary: pt VS remained at baseline. No labs scheduled during shift. PO flagyl and cipro continued during shift. Stool x2, per patient semi formed small amount. Tessalon matthieu given x1 during shift for cough, abdominal pain exacerbated by cough. Care continues. IO ARTIST * Plan of Care - Shauna Sidhu RN - 12/20/2023 5:14 PM CDT Goals: Clinical Goals for the Shift: monitor vitals, med admn, maintain safety and comfort Summary: pt alert and oriented. Vitals stable. Denied pain or nausea/vomiting. All scheduled medications administered as ordered. Pt ate 50-100% of each socorro with 100% intake of supplement drink. Pt up ad marcel and ambulated in hallway . No acute distress noted or reported. Call light within reach. Will continue to monitor. Problem: Discharge Planning Goal: Understanding discharge needs will improve Outcome: Progressing Problem: Fall Risk Goal: Ability to state ways to decrease the risk of falls will improve Outcome: Progressing Goal: Will remain free from falls Outcome: Progressing Goal: Will remain free from injury from falls Outcome: Progressing Problem: Lack of Knowledge Goal: Ability to describe self care measures that may prevent or decrease complications related to Type 2 Diabetes will improve Outcome: Progressing Problem: Health Nutrition Goal: Nutritional intake and knowledge related to Diabetes will improve Outcome: Progressing Problem: Neurosensory Goal: Achieves maximal functionality and self care Outcome: Progressing Problem: Musculoskeletal Goal: Return mobility to safest level of function Outcome: Progressing Goal: Maintain proper alignment of affected body part Outcome: Progressing Goal: Return ADL status to a safe level of function Outcome: Progressing Goal: Ability to perform activities at highest level will improve Outcome: Progressing Goal: Mobility, ROM and muscle strength will improve Outcome: Progressing Problem: Gastrointestinal Goal: Minimal or absence of nausea and vomiting Outcome: Progressing Goal: Maintains or returns to baseline bowel function Outcome: Progressing Goal: Maintains adequate nutritional intake Outcome: Progressing Problem: Metabolic/Fluid and Electrolytes Goal: Electrolytes maintained within normal limits Outcome: Progressing Goal: Glucose maintained within prescribed range Outcome: Progressing Problem: Lack of Knowledge Goal: Ability to develop a pain control plan will improve Outcome: Progressing Problem: Medication Goal: Satisfaction with pain management medication regimen will improve Outcome: Progressing Problem: Sensory Goal: Ability to identify factors that increase pain levels will improve while working to decrease the patient's pain levels Outcome: Progressing Problem: Coping Goal: Ability to cope will improve Outcome: Progressing Problem: Health Behavior Goal: Identification of resources available to assist in meeting health care needs will improve Outcome: Progressing Problem: Respiratory Goal: Achieves optimal ventilation and oxygenation Outcome: Progressing Goal: Ability to maintain a clear airway will improve Outcome: Progressing Problem: Skin/Tissue Integrity Goal: Incisions, wounds, or drain sites healing without S/S of infection Outcome: Progressing Problem: Infection Goal: Absence of infection during hospitalization Outcome: Progressing Problem: Isolation Lack of Knowledge Goal: Knowledge of risk factors and measures for prevention of condition will improve Outcome: Progressing Problem: Isolation Physical Regulation Goal: Isolation- Spread of further infection will be prevented Outcome: Progressing Goal: Isolation- Complications related to the disease process, condition, or treatment will be avoided or minimized. Outcome: Progressing Problem: Hematologic Goal: Maintains hematologic stability Outcome: Progressing Problem: Skin Integrity Impairment Risk Goal: Mobility will improve Outcome: Progressing Goal: Understanding of ways to prevent future skin breakdown will improve Outcome: Progressing Goal: Nutritional status will improve Outcome: Progressing Goal: Risk for impaired skin integrity will decrease Outcome: Progressing Problem: Genitourinary Goal: Absence of urinary retention Outcome: Progressing Problem: Cardiovascular Goal: Maintains optimal cardiac output and hemodynamic stability Outcome: Progressing Goal: Absence of cardiac dysrhythmias or at baseline Outcome: Progressing * Plan of Care - Dariana Cramer RN - 12/19/2023 1:26 PM CDT 12/19/23 1325 Discharge Planning Support System Spouse/Significant Other;Family members (Jean Claude/spouse [phone]) Anticipated discharge level of care Private residence Does the patient need discharge transport arranged? No (family to provide transportation) Discharge Transportation Communication Mode of transport has been discussed with the patient/family. All are agreeable to the plan and understand their responsibilities to ensure the safe transfer. No further CM/SW intervention is anticipated at this time. Post Acute Care Plan Home Care Services N/A OP Services N/A DME N/A Post Acute Care Facility N/A CM Progression of Care Update Per Medical Chart/Rounds/IDR: Patient is not medically ready for discharge ADD: 12-25 Discharge Barriers: No anticipated discharge barriers Education Needs Identified (plan): Pending CRS surgery(Colectomy) 12/23. Plan to transfer to [facility]. No anticipated home care needs at this time F/U Appointments: Pending Patient's Identified Problem/Goal Problem:?Ensure acute medical needs are met and that patient has a safe discharge plan. Goal:?Secure a discharge plan that patient/family are agreeable with?and ensure patient has continuum of care. Patient and/or family are agreeable with plan. workers compensation manager will continue to follow and assist with discharge planning as needed. If any further discharge needs arise, please contact the covering embedded case manager. Dariana Cramer RN,BSN,CM * Plan of Andres - Meka Ackerman RN - 12/19/2023 8:05 AM CDT Goals: Clinical Goals for the Shift: WILL CONTINUE TO MONITOR AND ASSESS VITAL SIGNS, LABS, PAIN AND SAFETY. Summary: Problem: Discharge Planning Goal: Understanding discharge needs will improve Outcome: Progressing Problem: Fall Risk Goal: Ability to state ways to decrease the risk of falls will improve Outcome: Progressing Goal: Will remain free from falls Outcome: Progressing Goal: Will remain free from injury from falls Outcome: Progressing Problem: Skin Integrity Impairment Risk Goal: Mobility will improve Outcome: Progressing Goal: Understanding of ways to prevent future skin breakdown will improve Outcome: Progressing Goal: Nutritional status will improve Outcome: Progressing Goal: Risk for impaired skin integrity will decrease Outcome: Progressing Problem: Lack of Knowledge Goal: Ability to describe self care measures that may prevent or decrease complications related to Type 2 Diabetes will improve Outcome: Progressing Problem: Health Nutrition Goal: Nutritional intake and knowledge related to Diabetes will improve Outcome: Progressing Problem: Neurosensory Goal: Achieves maximal functionality and self care Outcome: Progressing Problem: Musculoskeletal Goal: Return mobility to safest level of function Outcome: Progressing Goal: Maintain proper alignment of affected body part Outcome: Progressing Goal: Return ADL status to a safe level of function Outcome: Progressing Goal: Ability to perform activities at highest level will improve Outcome: Progressing Goal: Mobility, ROM and muscle strength will improve Outcome: Progressing Problem: Gastrointestinal Goal: Minimal or absence of nausea and vomiting Outcome: Progressing Goal: Maintains or returns to baseline bowel function Outcome: Progressing Goal: Maintains adequate nutritional intake Outcome: Progressing Problem: Metabolic/Fluid and Electrolytes Goal: Electrolytes maintained within normal limits Outcome: Progressing Goal: Glucose maintained within prescribed range Outcome: Progressing Problem: Respiratory Goal: Achieves optimal ventilation and oxygenation Outcome: Progressing Goal: Ability to maintain a clear airway will improve Outcome: Progressing Problem: Skin/Tissue Integrity Goal: Incisions, wounds, or drain sites healing without S/S of infection Outcome: Progressing Problem: Infection Goal: Absence of infection during hospitalization Outcome: Progressing Problem: Hematologic Goal: Maintains hematologic stability Outcome: Progressing Problem: Genitourinary Goal: Absence of urinary retention Outcome: Progressing Problem: Cardiovascular Goal: Maintains optimal cardiac output and hemodynamic stability Outcome: Progressing Problem: Lack of Knowledge Goal: Ability to develop a pain control plan will improve Outcome: Progressing Problem: Medication Goal: Satisfaction with pain management medication regimen will improve Outcome: Progressing Problem: Sensory Goal: Ability to identify factors that increase pain levels will improve while working to decrease the patient's pain levels Outcome: Progressing Problem: Coping Goal: Ability to cope will improve Outcome: Progressing Problem: Health Behavior Goal: Identification of resources available to assist in meeting health care needs will improve Outcome: Progressing Problem: Isolation Lack of Knowledge Goal: Knowledge of risk factors and measures for prevention of condition will improve Outcome: Progressing Problem: Isolation Physical Regulation Goal: Isolation- Spread of further infection will be prevented Outcome: Progressing Goal: Isolation- Complications related to the disease process, condition, or treatment will be avoided or minimized. Outcome: Progressing * Plan of Care - Jennifer Martin RN - 12/19/2023 5:09 AM CDT Goals: Clinical Goals for the Shift: WILL CONTINUE TO MONITOR AND ASSESS VITAL SIGNS, LABS, PAIN AND SAFETY. Problem: Discharge Planning Goal: Understanding discharge needs will improve Outcome: Progressing Problem: Fall Risk Goal: Ability to state ways to decrease the risk of falls will improve Outcome: Progressing Goal: Will remain free from falls Outcome: Progressing Goal: Will remain free from injury from falls Outcome: Progressing Problem: Lack of Knowledge Goal: Ability to describe self care measures that may prevent or decrease complications related to Type 2 Diabetes will improve Outcome: Progressing Problem: Health Nutrition Goal: Nutritional intake and knowledge related to Diabetes will improve Outcome: Progressing Problem: Neurosensory Goal: Achieves maximal functionality and self care Outcome: Progressing Problem: Musculoskeletal Goal: Return mobility to safest level of function Outcome: Progressing Goal: Maintain proper alignment of affected body part Outcome: Progressing Goal: Return ADL status to a safe level of function Outcome: Progressing Goal: Ability to perform activities at highest level will improve Outcome: Progressing Goal: Mobility, ROM and muscle strength will improve Outcome: Progressing Problem: Gastrointestinal Goal: Minimal or absence of nausea and vomiting Outcome: Progressing Goal: Maintains or returns to baseline bowel function Outcome: Progressing Goal: Maintains adequate nutritional intake Outcome: Progressing Problem: Metabolic/Fluid and Electrolytes Goal: Electrolytes maintained within normal limits Outcome: Progressing Goal: Glucose maintained within prescribed range Outcome: Progressing Problem: Lack of Knowledge Goal: Ability to develop a pain control plan will improve Outcome: Progressing Problem: Medication Goal: Satisfaction with pain management medication regimen will improve Outcome: Progressing Problem: Sensory Goal: Ability to identify factors that increase pain levels will improve while working to decrease the patient's pain levels Outcome: Progressing Problem: Coping Goal: Ability to cope will improve Outcome: Progressing Problem: Health Behavior Goal: Identification of resources available to assist in meeting health care needs will improve Outcome: Progressing Problem: Respiratory Goal: Achieves optimal ventilation and oxygenation Outcome: Progressing Goal: Ability to maintain a clear airway will improve Outcome: Progressing Problem: Skin/Tissue Integrity Goal: Incisions, wounds, or drain sites healing without S/S of infection Outcome: Progressing Problem: Infection Goal: Absence of infection during hospitalization Outcome: Progressing Problem: Isolation Lack of Knowledge Goal: Knowledge of risk factors and measures for prevention of condition will improve Outcome: Progressing Problem: Isolation Physical Regulation Goal: Isolation- Spread of further infection will be prevented Outcome: Progressing Goal: Isolation- Complications related to the disease process, condition, or treatment will be avoided or minimized. Outcome: Progressing Problem: Hematologic Goal: Maintains hematologic stability Outcome: Progressing Problem: Skin Integrity Impairment Risk Goal: Mobility will improve Outcome: Progressing Goal: Understanding of ways to prevent future skin breakdown will improve Outcome: Progressing Goal: Nutritional status will improve Outcome: Progressing Goal: Risk for impaired skin integrity will decrease Outcome: Progressing Problem: Genitourinary Goal: Absence of urinary retention Outcome: Progressing Problem: Cardiovascular Goal: Maintains optimal cardiac output and hemodynamic stability Outcome: Progressing Summary: * Plan of Care - Molly Huynh RN - 12/18/2023 11:42 AM CDT Problem: Fall Risk Goal: Will remain free from falls Outcome: Progressing Problem: Health Nutrition Goal: Nutritional intake and knowledge related to Diabetes will improve Outcome: Progressing Problem: Gastrointestinal Goal: Maintains or returns to baseline bowel function Outcome: Progressing Goals: Clinical Goals for the Shift: Monitor vitals, labs, provide safety and comfort * Plan of Care - Samy Lyn - 12/17/2023 7:35 PM CDT Problem: Discharge Planning Goal: Understanding discharge needs will improve Outcome: Progressing Flowsheets (Taken 12/17/20231929) Understanding of discharge needs will improve: Discuss information regarding discharge instructions Identify discharge barriers Identify discharge learning needs (meds, wound care, etc.) Problem: Fall Risk Goal: Ability to state ways to decrease the risk of falls will improve Outcome: Progressing Flowsheets (Taken 12/17/20231929) Ability to state ways to decrease the risk of falls will improve: Teach fall prevention measures Teach information regarding appropriate enviornmental changes Goal: Will remain free from falls Outcome: Progressing Flowsheets (Taken 12/17/20231929) Will remain free from falls: Assess risk factors for falls Implement fall prevention measures Goal: Will remain free from injury from falls Outcome: Progressing Flowsheets (Taken 12/17/20231929) Will remain free from injury from falls: Provide safe environment for conduction of activities of daily living in hospital environment Problem: Lack of Knowledge Goal: Ability to describe self care measures that may prevent or decrease complications related to Type 2 Diabetes will improve Outcome: Progressing Flowsheets (Taken 12/17/20231929) Ability to describe self care measures that may prevent or decrease complications related to Type 2Diabetes will improve: Teach blood glucose measurement Teach signs and symptoms of hypoglycemia Teach signs and symptoms of hyperglycemia Problem: Health Nutrition Goal: Nutritional intake and knowledge related to Diabetes will improve Outcome: Progressing Flowsheets (Taken 12/17/20231929) Nutritional intake and knowledge related to Diabetes will improve: Collaborate with admissions dean for diabetes evaluation and/or teaching Problem: Neurosensory Goal: Achieves maximal functionality and self care Outcome: Progressing Flowsheets (Taken 12/17/20231929) Achieves maximal functionality and self care: Monitor swallowing and airway patency with patient fatigue and changes in neurological status Problem: Musculoskeletal Goal: Return mobility to safest level of function Outcome: Progressing Flowsheets (Taken 12/17/20231929) Return mobility to safest level of function: Assess patient stability and activity tolerance for standing, transferring and ambulating with or without assistive devices Goal: Maintain proper alignment of affected body part Outcome: Progressing Goal: Return ADL status to a safe level of function Outcome: Progressing Flowsheets (Taken 12/17/20231929) Return activities of daily living status to a safe level of function: Assess patient's activities of daily living deficits and provide assistive devices as needed Assist and instruct patient to increase activity and self care Goal: Ability to perform activities at highest level will improve Outcome: Progressing Goal: Mobility, ROM and muscle strength will improve Outcome: Progressing Flowsheets (Taken 12/17/20231929) Mobility, ROM and muscle strength will improve: Provide proper bed mobility techniques Perform passive and/or assist with range of motion Provide positioning in correct anatomical alignment Problem: Gastrointestinal Goal: Minimal or absence of nausea and vomiting Outcome: Progressing Flowsheets (Taken 12/17/20231929) Minimal or absence of nausea and vomiting: Assess gastrointestinal status Provide a clean room free from unpleasant odors Monitor intake and output Administer ordered antiemetic medications as needed, assess medication effects Goal: Maintains or returns to baseline bowel function Outcome: Progressing Flowsheets (Taken 12/17/20231929) Maintains or returns to baseline bowel function: Assess bowel function, evaluate bowel sounds and signs of abdominal distention Administer ordered medications as needed Monitor amount, characteristics and/or frequency of stool Goal: Maintains adequate nutritional intake Outcome: Progressing Flowsheets (Taken 12/17/20231929) Maintains adequate nutritional intake: Monitor I&O, weight and lab values Monitor percentage of each meal consumed Problem: Metabolic/Fluid and Electrolytes Goal: Electrolytes maintained within normal limits Outcome: Progressing Flowsheets (Taken 12/17/20231929) Electrolytes maintained within normal limits: Monitor labs and assess patient for signs and symptoms of electrolyte imbalances Goal: Glucose maintained within prescribed range Outcome: Progressing Flowsheets (Taken 12/17/20231929) Glucose maintained within prescribed range: Assess for signs and symptoms of hyperglycemia and hypoglycemia, monitor glucose as ordered Administer ordered medications to maintain glucose within target range Problem: Lack of Knowledge Goal: Ability to develop a pain control plan will improve Outcome: Progressing Flowsheets (Taken 12/17/20231929) Ability to develop a pain control plan will improve: Teach information regarding pain management Educate pain scale for assessing level of pain Explain causes of pain and how long pain can be expected to last Problem: Medication Goal: Satisfaction with pain management medication regimen will improve Outcome: Progressing Flowsheets (Taken 12/17/20231929) Satisfaction with pain management medication regimen will improve: Evaluate medication effects Problem: Sensory Goal: Ability to identify factors that increase pain levels will improve while working to decrease the patient's pain levels Outcome: Progressing Flowsheets (Taken 12/17/20231929) Ability to identify factors that increase pain levels will improve while working to decrease patients pain levels: Assess pain status Encourage distraction activities Observe non-verbal cues of discomfort, such as restlessness, muscle tension, or altered vital signs Assess effects of pain control measures Problem: Coping Goal: Ability to cope will improve Outcome: Progressing Flowsheets (Taken 12/17/20231929) Ability to cope will Improve: Encourage vebalization of feelings surrounding pain Provide emotional support Assess beliefs of pain Problem: Health Behavior Goal: Identification of resources available to assist in meeting health care needs will improve Outcome: Progressing Flowsheets (Taken 12/17/20231929) Identification of resources available to assist in meeting health care needs will improve: Collaborate with pain management Problem: Respiratory Goal: Achieves optimal ventilation and oxygenation Outcome: Progressing Flowsheets (Taken 12/17/20231929) Achieves optimal ventilation and oxygenation: Assess for changes in respiratory status Manage oxygen therapy Perform cluster care Assess for changes in mentation and behavior Assess and instruct to report shortness of breath or any respiratory difficulty Goal: Ability to maintain a clear airway will improve Outcome: Progressing Problem: Skin/Tissue Integrity Goal: Incisions, wounds, or drain sites healing without S/S of infection Outcome: Progressing Flowsheets (Taken 12/17/20231929) Incision(s), Wound(s) or Drain Site(s) healing without S/S of infection: Assess and document risk factors for pressure injury development Assess and document skin integrity Assess and document dressing/incision, wound bed, drain sites and surrounding tissue Problem: Infection Goal: Absence of infection during hospitalization Outcome: Progressing Flowsheets (Taken 12/17/20231929) Absence of infection during hospitalization: Assess and monitor for signs and symptoms of infection Monitor lab/diagnostic results Monitor all insertion sites i.e., indwelling lines, tubes and drains and evaluate for need daily Administer medications as ordered Instruct and encourage patient and family to use good hand hygiene technique Apply infection specific precautions per policy Problem: Isolation Lack of Knowledge Goal: Knowledge of risk factors and measures for prevention of condition will improve Outcome: Progressing Flowsheets (Taken 12/17/20231929) Knowledge of risk factors and measures for prevention of condition will improve: Discuss risk of infection Discuss good hand hygiene Discuss infection prevention measures Teach significant others hand washing technique Discuss signs and symptoms of infection Use teach-back technique to assess learning Problem: Isolation Physical Regulation Goal: Isolation- Spread of further infection will be prevented Outcome: Progressing Flowsheets (Taken 12/17/20231929) Spread of further infection will be prevented: Implement protective environment Encourage respiratory hygiene/cough etiquette measures Encourage oral hygiene Use standard precautions Administer medications Implement infection prevention measures Monitor vital signs Monitor diagnostic test results Collaborate with multidisiplinary care team Goal: Isolation- Complications related to the disease process, condition, or treatment will be avoided or minimized. Outcome: Progressing Problem: Hematologic Goal: Maintains hematologic stability Outcome: Progressing Flowsheets (Taken 12/17/20231929) Maintains Hematologic Stability: Assess for signs and symptoms of bleeding or hemorrhage Monitor labs Problem: Skin Integrity Impairment Risk Goal: Mobility will improve Outcome: Progressing Flowsheets (Taken 12/17/20231929) Mobility will improve: Encourage mobilization to extent of ability, assist with range of motion as needed Encourage turning and repositioning, assist as needed Assess circulation, sensation and/or motion of extremity Encourage ambulation Goal: Understanding of ways to prevent future skin breakdown will improve Outcome: Progressing Flowsheets (Taken 12/17/20231929) Understanding of ways to prevent future skin breakdown will improve: Discuss treatments to protect skin integrity Goal: Nutritional status will improve Outcome: Progressing Flowsheets (Taken 12/17/20231929) Nutritional status will improve: Assess nutritional status Encourage nutritional intake Monitor intake and output Encourage fluid intake Goal: Risk for impaired skin integrity will decrease Outcome: Progressing Flowsheets (Taken 12/17/20231929) Risk for impaired skin integrity will decrease: Identify risk factors for impaired skin integrity and/or pressure injuries Implement precautions to protect skin integrity Perform cleansing of skin when soiled Monitor skin integrity, appearance and temperature Use moisturizing agent to dry skin Provide pressure-redistribution bed, mattress and/or chair cushion Problem: Genitourinary Goal: Absence of urinary retention Outcome: Progressing Flowsheets (Taken 12/17/20231929) Absence of urinary retention: Assess amount and/or characteristics of urine Problem: Cardiovascular Goal: Maintains optimal cardiac output and hemodynamic stability Outcome: Progressing Flowsheets (Taken 12/17/2023 1930) Maintain optimal cardiac output and hemodynamic Stability: Monitor vital signs, rhythm, and trends Assess quality of pulses, skin color and temperature Monitor for bleeding, hypotension and signs of decreased cardiac output Assess for signs of decreased coronary artery perfusion - ex. angina Goals: Clinical Goals for the Shift: Monitor vitals, labs, provide safety and comfort Summary: * Plan of Care - Christine Avendano RN - 12/17/2023 4:20 PM CDT Problem: Discharge Planning Goal: Understanding discharge needs will improve Outcome: Progressing Problem: Fall Risk Goal: Ability to state ways to decrease the risk of falls will improve Outcome: Progressing Goal: Will remain free from falls Outcome: Progressing Goal: Will remain free from injury from falls Outcome: Progressing Problem: Lack of Knowledge Goal: Ability to describe self care measures that may prevent or decrease complications related to Type 2 Diabetes will improve Outcome: Progressing Problem: Health Nutrition Goal: Nutritional intake and knowledge related to Diabetes will improve Outcome: Progressing Problem: Neurosensory Goal: Achieves maximal functionality and self care Outcome: Progressing Problem: Musculoskeletal Goal: Return mobility to safest level of function Outcome: Progressing Goal: Maintain proper alignment of affected body part Outcome: Progressing Goal: Return ADL status to a safe level of function Outcome: Progressing Goal: Ability to perform activities at highest level will improve Outcome: Progressing Goal: Mobility, ROM and muscle strength will improve Outcome: Progressing Problem: Gastrointestinal Goal: Minimal or absence of nausea and vomiting Outcome: Progressing Goal: Maintains or returns to baseline bowel function Outcome: Progressing Goal: Maintains adequate nutritional intake Outcome: Progressing Problem: Metabolic/Fluid and Electrolytes Goal: Electrolytes maintained within normal limits Outcome: Progressing Goal: Glucose maintained within prescribed range Outcome: Progressing Problem: Lack of Knowledge Goal: Ability to develop a pain control plan will improve Outcome: Progressing Problem: Medication Goal: Satisfaction with pain management medication regimen will improve Outcome: Progressing Problem: Sensory Goal: Ability to identify factors that increase pain levels will improve while working to decrease the patient's pain levels Outcome: Progressing Problem: Coping Goal: Ability to cope will improve Outcome: Progressing Problem: Health Behavior Goal: Identification of resources available to assist in meeting health care needs will improve Outcome: Progressing Problem: Respiratory Goal: Achieves optimal ventilation and oxygenation Outcome: Progressing Goal: Ability to maintain a clear airway will improve Outcome: Progressing Problem: Skin/Tissue Integrity Goal: Incisions, wounds, or drain sites healing without S/S of infection Outcome: Progressing Problem: Infection Goal: Absence of infection during hospitalization Outcome: Progressing Problem: Isolation Lack of Knowledge Goal: Knowledge of risk factors and measures for prevention of condition will improve Outcome: Progressing Problem: Isolation Physical Regulation Goal: Isolation- Spread of further infection will be prevented Outcome: Progressing Goal: Isolation- Complications related to the disease process, condition, or treatment will be avoided or minimized. Outcome: Progressing Problem: Hematologic Goal: Maintains hematologic stability Outcome: Progressing Problem: Skin Integrity Impairment Risk Goal: Mobility will improve Outcome: Progressing Goal: Understanding of ways to prevent future skin breakdown will improve Outcome: Progressing Goal: Nutritional status will improve Outcome: Progressing Goal: Risk for impaired skin integrity will decrease Outcome: Progressing Problem: Genitourinary Goal: Absence of urinary retention Outcome: Progressing Problem: Cardiovascular Goal: Maintains optimal cardiac output and hemodynamic stability Outcome: Progressing Goals: Clinical Goals for the Shift: Monitor vitals, labs, provide safety and comfort * Plan of Care - Dariana Cramer RN - 12/17/2023 1:36 PM CDT 12/17/23 3659 Discharge Planning Support System Spouse/Significant Other;Family members (Jean Claude/spouse [phone]) Anticipated discharge level of care Private residence Does the patient need discharge transport arranged? No (family to provide transportation) Discharge Transportation Communication Mode of transport has been discussed with the patient/family. All are agreeable to the plan and understand their responsibilities to ensure the safe transfer. No further CM/SW intervention is anticipated at this time. Post Acute Care Plan Home Care Services N/A OP Services N/A DME N/A Post Acute Care Facility N/A CM Progression of Care Update Per Medical Chart/Rounds/IDR: Patient is not medically ready for discharge ADD: 12-25 Discharge Barriers: No anticipated discharge barriers Education Needs Identified (plan): Pending CRS surgery(Colectomy) 12/23. Plan to transfer to [facility]. No anticipated home care needs at this time F/U Appointments: Pending Patient's Identified Problem/Goal Problem:?Ensure acute medical needs are met and that patient has a safe discharge plan. Goal:?Secure a discharge plan that patient/family are agreeable with?and ensure patient has continuum of care. Patient and/or family are agreeable with plan. workers compensation manager will continue to follow and assist with discharge planning as needed. If any further discharge needs arise, please contact the covering embedded case manager. Dariana Cramer RN,BSN,CM * Consults, Subsequent - Fernando Dooley MD - 12/17/2023 12:54 PM CDT Private GI Subsequent Consult Subjective Chief complaint of FTT, contained sigmoid perf Interval History: - No acute events or real changes. WBC uptrending Objective Physical Exam: Vitals: 24hr Min/Max: Temp Min: 36.7 ??C (98.1 ??F) Max: 36.9 ??C (98.4 ??F) Pulse Min: 83 Max: 110 BP Min: 122/71 Max: 133/67 Resp Min: 18 Max: 18 SpO2 Min: 92 % Max: 99 % Most Recent : Vitals: 12/17/23 0750 BP: 122/71 Pulse: 83 Resp: 18 Temp: 36.9 ??C (98.4 ??F) SpO2: 98% Physical exam: Constitutional: NAD. In bed. Eyes: EOMI grossly intact. Anicteric ENT: NCAT. moist mucus membranes. Lungs: Breathing comfortably on RA. Unlabored. Trachea midline. Cardiovascular: RRR, normal S1 and S2. GI: Soft, NT, ND Skin: No new rashes, lesions or bruises Extremities: Normal without edema or cyanosis Neuro: Alert. MAEW. Assessment/Plan Principal Problem: Physical deconditioning Active Problems: Splenic abscess Pulmonary nodule Hepatic abscess Severe malnutrition (CMS/HCC) Consolidation of left upper lobe of lung (CMS/HCC) (HCC) Fever Darius Russo is a 63 y.o. female with PMH HTN, T2DM, s/p cholecystectomy, a large adnexal mass c/f malignancy, and suspected crohn???s colitis who presents for contained sigmoid perf and FTT. 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 She was admitted with the plan to initiate IFX, however she had new symptoms of a cough and CT showing cavitary pulmonary nodules as well as increased pericolonic fluid collection. Both of these findings pose significant barriers to initiating abx. While mycobacterial/fungal infection causing thesecavitary lesions in the lung are still possible, their interval improvement without directed therapy is reassuring. Progressive worsening of her sigmoid phlegmon this admission however still poses a contraindication to IFX initiation. Additionally, she has had 2 episodes of fevers, chills, diaphoresis, hypotension and tachycardia this admission which are presumably 2/2 translocation form her worsening sigmoid perf/fluid collection. These required escalation of abx to IV ertapenem during these episodes. Recommendations: - Appreciate CRS/Business Office Representative Onc consults. Discussing with them if recurrent SIRS 2/2 colonic fluid collection would influence more urgent surgical intervention - abx per primary/ID - Cont optimization of nutritional status. TPN not viable given intraabdominal fluid collection with mircroabscesses and possible infectious process involving lungs - Not a candidate for IBD medical therapy pending surgical intervention We will continue to follow-up with you. Thank you for involving us in the care of this patient. If you have any questions, please call the private GI pager during weekdays or the [facility] phone during after hours and weekends. Fernando Dooley MD GI Fellow * Plan of Care - Samy Lyn - 12/16/2023 7:53 PM CDT Problem: Discharge Planning Goal: Understanding discharge needs will improve Flowsheets (Taken 12/16/20231948) Understanding of discharge needs will improve: Discuss information regarding discharge instructions Identify discharge barriers Identify discharge learning needs (meds, wound care, etc.) Arrange for needed discharge resources and transportation as appropriate Problem: Fall Risk Goal: Ability to state ways to decrease the risk of falls will improve Flowsheets (Taken 12/16/20231948) Ability to state ways to decrease the risk of falls will improve: Teach fall prevention measures Teach information regarding appropriate enviornmental changes Goal: Will remain free from falls Flowsheets (Taken 12/16/20231948) Will remain free from falls: Assess risk factors for falls Implement fall prevention measures Goal: Will remain free from injury from falls Flowsheets (Taken 12/16/20231948) Will remain free from injury from falls: Provide safe environment for conduction of activities of daily living in hospital environment Problem: Lack of Knowledge Goal: Ability to describe self care measures that may prevent or decrease complications related to Type 2 Diabetes will improve Flowsheets (Taken 12/16/20231948) Ability to describe self care measures that may prevent or decrease complications related to Type 2Diabetes will improve: Teach signs and symptoms of hyperglycemia Teach signs and symptoms of hypoglycemia Teach blood glucose measurement Problem: Health Nutrition Goal: Nutritional intake and knowledge related to Diabetes will improve Flowsheets (Taken 12/16/20231948) Nutritional intake and knowledge related to Diabetes will improve: Collaborate with admissions dean for diabetes evaluation and/or teaching Problem: Neurosensory Goal: Achieves maximal functionality and self care Flowsheets (Taken 12/16/20231948) Achieves maximal functionality and self care: Monitor swallowing and airway patency with patient fatigue and changes in neurological status Problem: Musculoskeletal Goal: Return mobility to safest level of function Flowsheets (Taken 12/16/20231948) Return mobility to safest level of function: Assess patient stability and activity tolerance for standing, transferring and ambulating with or without assistive devices Goal: Return ADL status to a safe level of function Flowsheets (Taken 12/16/20231948) Return activities of daily living status to a safe level of function: Assess patient's activities of daily living deficits and provide assistive devices as needed Assist and instruct patient to increase activity and self care Goal: Mobility, ROM and muscle strength will improve Flowsheets (Taken 12/16/20231948) Mobility, ROM and muscle strength will improve: Provide proper bed mobility techniques Provide positioning in correct anatomical alignment Perform passive and/or assist with range of motion Problem: Gastrointestinal Goal: Minimal or absence of nausea and vomiting Flowsheets (Taken 12/16/20231948) Minimal or absence of nausea and vomiting: Assess gastrointestinal status Monitor intake and output Monitor diagnostic test results Provide a clean room free from unpleasant odors Goal: Maintains or returns to baseline bowel function Flowsheets (Taken 12/16/20231948) Maintains or returns to baseline bowel function: Monitor amount, characteristics and/or frequency of stool Encourage oral fluids to ensure adequate hydration Administer ordered medications as needed Encourage mobilization and activity Goal: Maintains adequate nutritional intake Flowsheets (Taken 12/16/20231948) Maintains adequate nutritional intake: Monitor percentage of each meal consumed Monitor I&O, weight and lab values Problem: Metabolic/Fluid and Electrolytes Goal: Electrolytes maintained within normal limits Flowsheets (Taken 12/16/20231948) Electrolytes maintained within normal limits: Monitor labs and assess patient for signs and symptoms of electrolyte imbalances Monitor response to electrolyte replacements, including repeat lab results as appropriate Administer electrolyte replacement as ordered Goal: Glucose maintained within prescribed range Flowsheets (Taken 12/16/20231948) Glucose maintained within prescribed range: Assess for signs and symptoms of hyperglycemia and hypoglycemia, monitor glucose as ordered Administer ordered medications to maintain glucose within target range Problem: Lack of Knowledge Goal: Ability to develop a pain control plan will improve Flowsheets (Taken 12/16/20231948) Ability to develop a pain control plan will improve: Educate pain scale for assessing level of pain Teach information regarding pain management Problem: Medication Goal: Satisfaction with pain management medication regimen will improve Flowsheets (Taken 12/16/20231948) Satisfaction with pain management medication regimen will improve: Evaluate medication effects Problem: Sensory Goal: Ability to identify factors that increase pain levels will improve while working to decrease the patient's pain levels Flowsheets (Taken 12/16/20231948) Ability to identify factors that increase pain levels will improve while working to decrease patients pain levels: Assess pain status Observe non-verbal cues of discomfort, such as restlessness, muscle tension, or altered vital signs Problem: Coping Goal: Ability to cope will improve Flowsheets (Taken 12/16/20231948) Ability to cope will Improve: Encourage vebalization of feelings surrounding pain Provide emotional support Assess beliefs of pain Problem: Respiratory Goal: Achieves optimal ventilation and oxygenation Flowsheets (Taken 12/16/20231948) Achieves optimal ventilation and oxygenation: Assess for changes in respiratory status Manage oxygen therapy Perform cluster care Assess for changes in mentation and behavior Assess and instruct to report shortness of breath or any respiratory difficulty Problem: Skin/Tissue Integrity Goal: Incisions, wounds, or drain sites healing without S/S of infection Flowsheets (Taken 12/16/20231948) Incision(s), Wound(s) or Drain Site(s) healing without S/S of infection: Assess and document risk factors for pressure injury development Assess and document skin integrity Problem: Infection Goal: Absence of infection during hospitalization Flowsheets (Taken 12/16/20231948) Absence of infection during hospitalization: Assess and monitor for signs and symptoms of infection Monitor lab/diagnostic results Monitor all insertion sites i.e., indwelling lines, tubes and drains and evaluate for need daily Administer medications as ordered Instruct and encourage patient and family to use good hand hygiene technique Problem: Isolation Lack of Knowledge Goal: Knowledge of risk factors and measures for prevention of condition will improve Flowsheets (Taken 12/16/20231948) Knowledge of risk factors and measures for prevention of condition will improve: Discuss risk of infection Discuss good hand hygiene Discuss infection prevention measures Teach significant others hand washing technique Discuss signs and symptoms of infection Use teach-back technique to assess learning Problem: Isolation Physical Regulation Goal: Isolation- Spread of further infection will be prevented Flowsheets (Taken 12/16/20231948) Spread of further infection will be prevented: Implement protective environment Encourage respiratory hygiene/cough etiquette measures Encourage oral hygiene Use standard precautions Administer medications Implement infection prevention measures Monitor vital signs Goal: Isolation- Complications related to the disease process, condition, or treatment will be avoided or minimized. Flowsheets (Taken 12/16/20231948) Complications related to the disease process, condition, or treatment will be avoided or minimized: Assess emotional status Provide emotional support Implement safety precautions Problem: Hematologic Goal: Maintains hematologic stability Flowsheets (Taken 12/16/20231948) Maintains Hematologic Stability: Assess for signs and symptoms of bleeding or hemorrhage Monitor labs Problem: Skin Integrity Impairment Risk Goal: Mobility will improve Flowsheets (Taken 12/16/20231948) Mobility will improve: Encourage mobilization to extent of ability, assist with range of motion as needed Encourage turning and repositioning, assist as needed Assess circulation, sensation and/or motion of extremity Goal: Understanding of ways to prevent future skin breakdown will improve Flowsheets (Taken 12/16/20231948) Understanding of ways to prevent future skin breakdown will improve: Discuss treatments to protect skin integrity Goal: Nutritional status will improve Flowsheets (Taken 12/16/20231948) Nutritional status will improve: Assess nutritional status Encourage nutritional intake Monitor intake and output Encourage fluid intake Goal: Risk for impaired skin integrity will decrease Flowsheets (Taken 12/16/20231948) Risk for impaired skin integrity will decrease: Identify risk factors for impaired skin integrity and/or pressure injuries Implement precautions to protect skin integrity Monitor skin integrity, appearance and temperature Problem: Genitourinary Goal: Absence of urinary retention Flowsheets (Taken 12/16/20231948) Absence of urinary retention: Assess amount and/or characteristics of urine Problem: Cardiovascular Goal: Maintains optimal cardiac output and hemodynamic stability Flowsheets (Taken 12/16/20231948) Maintain optimal cardiac output and hemodynamic Stability: Monitor vital signs, rhythm, and trends Assess quality of pulses, skin color and temperature Monitor urine output and notify provider of values outside normal range Monitor for bleeding, hypotension and signs of decreased cardiac output Assess for signs of decreased coronary artery perfusion - ex. angina Goals: Clinical Goals for the Shift: Monitor vitals, labs, provide safety and comfort Summary: * Consults, Subsequent - Fernando Dooley MD - 12/16/2023 10:09 AM CDT Private GI Subsequent Consult Subjective Chief complaint of FTT, contained sigmoid perf Interval History: - More tired today, poor sleep with roommate Objective Physical Exam: Vitals: 24hr Min/Max: Temp Min: 36.6 ??C (97.9 ??F) Max: 37.5 ??C (99.5 ??F) Pulse Min: 93 Max: 107 BP Min: 116/64 Max: 127/69 Resp Min: 18 Max: 18 SpO2 Min: 96 % Max: 98 % Most Recent : Vitals: 12/16/23 0730 BP: 127/69 Pulse: 95 Resp: 18 Temp: 36.6 ??C (97.9 ??F) SpO2: 98% Physical exam: Constitutional: NAD. In bed. Eyes: EOMI grossly intact. Anicteric ENT: NCAT. moist mucus membranes. Lungs: Breathing comfortably on RA. Unlabored. Trachea midline. Cardiovascular: RRR, normal S1 and S2. GI: Soft, NT, ND Skin: No new rashes, lesions or bruises Extremities: Normal without edema or cyanosis Neuro: Alert. MAEW. Assessment/Plan Principal Problem: Physical deconditioning Active Problems: Splenic abscess Pulmonary nodule Hepatic abscess Severe malnutrition (CMS/HCC) Consolidation of left upper lobe of lung (CMS/HCC) (HCC) Fever Darius Russo is a 63 y.o. female with PMH HTN, T2DM, s/p cholecystectomy, a large adnexal mass c/f malignancy, and suspected crohn???s colitis who presents for contained sigmoid perf and FTT. 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 She was admitted with the plan to initiate IFX, however she had new symptoms of a cough and CT showing cavitary pulmonary nodules as well as increased pericolonic fluid collection. Both of these findings pose significant barriers to initiating abx. While mycobacterial/fungal infection causing thesecavitary lesions in the lung are still possible, their interval improvement without directed therapy is reassuring. Progressive worsening of her sigmoid phlegmon this admission however still poses a contraindication to IFX initiation. Additionally, she has had 2 episodes of fevers, chills, diaphoresis, hypotension and tachycardia which are presumably 2/2 translocation form her worsening sigmoid perf/fluid collection. Recommendations: - Appreciate CRS/Business Office Representative Onc consults. Discussing with them if recurrent SIRS 2/2 colonic fluid collection would influence more urgent surgical intervention - abx per primary/ID - Cont optimization of nutritional status. TPN not viable given intraabdominal fluid collection with mircroabscesses and possible infectious process involving lungs - Not a candidate for IBD medical therapy pending surgical intervention We will continue to follow-up with you. Thank you for involving us in the care of this patient. If you have any questions, please call the private GI pager during weekdays or the [facility] phone during after hours and weekends. Fernando Dooley MD GI Fellow * Plan of Care - Christine Avendano RN - 12/16/2023 7:26 AM CDT Problem: Discharge Planning Goal: Understanding discharge needs will improve Outcome: Progressing Problem: Fall Risk Goal: Ability to state ways to decrease the risk of falls will improve Outcome: Progressing Goal: Will remain free from falls Outcome: Progressing Goal: Will remain free from injury from falls Outcome: Progressing Problem: Lack of Knowledge Goal: Ability to describe self care measures that may prevent or decrease complications related to Type 2 Diabetes will improve Outcome: Progressing Problem: Health Nutrition Goal: Nutritional intake and knowledge related to Diabetes will improve Outcome: Progressing Problem: Neurosensory Goal: Achieves maximal functionality and self care Outcome: Progressing Problem: Musculoskeletal Goal: Return mobility to safest level of function Outcome: Progressing Goal: Maintain proper alignment of affected body part Outcome: Progressing Goal: Return ADL status to a safe level of function Outcome: Progressing Goal: Ability to perform activities at highest level will improve Outcome: Progressing Goal: Mobility, ROM and muscle strength will improve Outcome: Progressing Problem: Gastrointestinal Goal: Minimal or absence of nausea and vomiting Outcome: Progressing Goal: Maintains or returns to baseline bowel function Outcome: Progressing Goal: Maintains adequate nutritional intake Outcome: Progressing Problem: Metabolic/Fluid and Electrolytes Goal: Electrolytes maintained within normal limits Outcome: Progressing Goal: Glucose maintained within prescribed range Outcome: Progressing Problem: Lack of Knowledge Goal: Ability to develop a pain control plan will improve Outcome: Progressing Problem: Medication Goal: Satisfaction with pain management medication regimen will improve Outcome: Progressing Problem: Sensory Goal: Ability to identify factors that increase pain levels will improve while working to decrease the patient's pain levels Outcome: Progressing Problem: Coping Goal: Ability to cope will improve Outcome: Progressing Problem: Health Behavior Goal: Identification of resources available to assist in meeting health care needs will improve Outcome: Progressing Problem: Respiratory Goal: Achieves optimal ventilation and oxygenation Outcome: Progressing Goal: Ability to maintain a clear airway will improve Outcome: Progressing Problem: Skin/Tissue Integrity Goal: Incisions, wounds, or drain sites healing without S/S of infection Outcome: Progressing Problem: Infection Goal: Absence of infection during hospitalization Outcome: Progressing Problem: Isolation Lack of Knowledge Goal: Knowledge of risk factors and measures for prevention of condition will improve Outcome: Progressing Problem: Isolation Physical Regulation Goal: Isolation- Spread of further infection will be prevented Outcome: Progressing Goal: Isolation- Complications related to the disease process, condition, or treatment will be avoided or minimized. Outcome: Progressing Problem: Hematologic Goal: Maintains hematologic stability Outcome: Progressing Problem: Skin Integrity Impairment Risk Goal: Mobility will improve Outcome: Progressing Goal: Understanding of ways to prevent future skin breakdown will improve Outcome: Progressing Goal: Nutritional status will improve Outcome: Progressing Goal: Risk for impaired skin integrity will decrease Outcome: Progressing Problem: Genitourinary Goal: Absence of urinary retention Outcome: Progressing Problem: Cardiovascular Goal: Maintains optimal cardiac output and hemodynamic stability Outcome: Progressing Goals: Clinical Goals for the Shift: Monitor vitals, labs, provide safety and comfort * Consults, Subsequent - Cara Guy NP - 12/16/2023 7:22 AM CDT Infectious Disease Subsequent Consult Note Infectious Disease Team: General 4 Contact Information: Please see [facility] Treatment Team listing for up-to-date contact information. Subjective Chief complaint of Spleen and liver abscesses, contained perforation, lung nodules with cavitation Interval History: -No acute events since last seen. Patient has continued on cipro and metronidazole. -Reviewed all cultures with NGTD on mycology and AFB cultures. -Awaiting surgical intervention. Objective Anti-infectives (From admission, onward) Start Dose/Rate Route Frequency Ordered Stop 11/26/23 0900 metroNIDAZOLE (FLAGYL) tablet 500 mg 500 mg oral 2 times daily 11/25/23211911/26/23 0600 ciprofloxacin (CIPRO) tablet 500 mg 500 mg oral 2 times daily (for quinolones,etc) 11/25/232119 Vitals: 24hr Min/Max: Temp Min: 36.6 ??C (97.9 ??F) Max: 37.5 ??C (99.5 ??F) Pulse Min: 93 Max: 107 BP Min: 116/64 Max: 127/69 Resp Min: 18 Max: 18 SpO2 Min: 96 % Max: 98 % Most Recent : Vitals: 12/16/23 0730 BP: 127/69 Pulse: 95 Resp: 18 Temp: 36.6 ??C (97.9 ??F) SpO2: 98% I/O last 2 completed shifts: In: 705 [P.O.:705] Out: - Active LDAs: Peripheral IV 12/07/23 22 G Posterior;Right Wrist (Active) Number of days: 9 Peripheral IV 20 G Anterior;Distal;Left Forearm (Active) Number of days: Physical Exam: Physical Exam Constitutional: General: She is not in acute distress. HENT: Head: Normocephalic. Nose: Nose normal. Mouth/Throat: Mouth: Mucous membranes are moist. Cardiovascular: Rate and Rhythm: Normal rate. Pulmonary: Effort: Pulmonary effort is normal. No respiratory distress. Abdominal: Palpations: Abdomen is soft. Musculoskeletal: General: Normal range of motion. Skin: General: Skin is warm and dry. Findings: No rash. Neurological: General: No focal deficit present. Mental Status: She is alert and oriented to person, place, and time. Mental status is at baseline. Psychiatric: Mood and Affect: Mood normal. Behavior: Behavior normal. Thought Content: Thought content normal. Judgment: Judgment normal. Lab/Radiology/Diagnostic Review: Lab Results Component Value Date MICROBIOLOGY Final Report: No growth 12/09/2023 MICROBIOLOGY Final Report: No growth 12/09/2023 MICROBIOLOGY Final Report: No growth 12/04/2023 MICROBIOLOGY Final Report: No growth 12/04/2023 MICROBIOLOGY Preliminary Report: No growth to date. 11/29/2023 Radiology results were reviewed. No results found. No results found. Assessment/Plan Fever Assessment & Plan Team reports patient had a true fever with rigors and shakes. Blood cultures obtained and patient transitioned to ertapenem. Blood cultures have remained NGTD and patient has transitioned back to cipro and metronidazole. Hepatic abscess Assessment & Plan Continue cipro and metronidazole. Pulmonary nodule Assessment & Plan Patient is a 63 y.o. female with a history of hypertension, type 2 diabetes, and inflammatory boweldisease who is [facility] for progressive weight loss and nausea in the setting of multiple admissions for diverticulitis complicated by contained sigmoid perforation, scattered liver and spleen abscesses and adnexal mass. She was admitted to [facility] on 11/24 for further workup and ID [...] processes. Near resolution of hepatic and splenic abs cesses. Cystic R adnexal lesion w/o focus of elevated FDG uptake. Hypermetabolic soft tissue nodulein pelvic peritoneum and within a fat-containing umbilical hernia. Blood cultures 12/08: NGTD Reviewed all culture results. Discussed ID involvement in care and overall negative infections workup. Patient with no new symptoms or concerns at this time. Reports cough has improved. Recommendations: - Consider non-infectious etiologies -Will follow up on results. Of note fungal and AFB cultures take several weeks to finalize -Thank you for allowing us to participate in the care of this patient. For questions or concerns, please do not hesitate to reach out. Splenic abscess Assessment & Plan Patient is a 63 y.o. female with a history of hypertension, type 2 diabetes, and inflammatory boweldisease who is admitted [facility] for progressive weight loss and nausea in the setting of multiple admissions for diverticulitis complicated by contained sigmoid perforation, scattered liver and spleen abscesses and adnexal mass. She was admitted to [facility] on 11/24 for further workup and ID [...] processes. Near resolution of hepatic and splenic abs cesses. Cystic R adnexal lesion w/o focus of elevated FDG uptake. Hypermetabolic soft tissue nodulein pelvic peritoneum and within a fat-containing umbilical hernia. Patient has attempted to d/c twice this admission. At present, patient reports plan is to remain int hospital until surgery occurs, tentatively planning on 12/23. Labs and vitals have remained stable and repeat blood cultures NGTD. Reports the nutritional drinks are going well and states she feels she is feeling better now than when previously admitted. Would not empirically broaden antibiotics unless patient clinically worsens. This is an issue of source control rather than antibiotic failure. Recommendations. -Continue metronidazole and ciprofloxacin. Would not broaden unless patient clinically worsening. -If patient fevers, please obtain blood cultures and targeted fever workup. -Patient would benefit from surgical source control. -Will cancel outpatient ID appointment on 12/23 given plans to stay admitted until surgery. -Thank you for allowing us to participate in the care of this patient. For questions or concerns, please do not hesitate to reach out. Today, I am treating the patient for Spleen and liver abscesses, contained perforation, lung nodules with cavitation which can cause fever, pain, leukocytosis and worsening of infection in the short-term future in the absence of appropriate treatment, as described in the note., Reviewed notes by GI, nursing, primary team to determine appropriate plan of care as in the note., Estimated Creatinine Clearance: 52.9 mL/min (by C-G 65 yr and older- minimum SCr 0.8 based on SCr of 0.78 mg/dL). - reviewed; antibiotics recommended above are dosed accordingly., and The patient is being intensively monitored for antimicrobial toxicity from cipro and metronidazole with the following tests: cbc with diff and CMP. Cara Guy, Team 4 Infectious Diseases INDUSTRIAL SECURITY ANALYST Please contact the Team 4 ID INDUSTRIAL SECURITY ANALYST M-F, 7-3; or the Attending at the phone numbers in care team with any questions or concerns. After hours, please contact the ID fellow consular officer. * Plan of Care - Nohemi Corona RN - 12/16/2023 12:06 AM CDT Problem: Fall Risk Goal: Ability to state ways to decrease the risk of falls will improve Outcome: Progressing Problem: Musculoskeletal Goal: Return mobility to safest level of function Outcome: Progressing Problem: Medication Goal: Satisfaction with pain management medication regimen will improve Outcome: Progressing Goals: Clinical Goals for the Shift: Monitor vitals, labs, provide safety and comfort Summary: * Plan of Care - Dariana Cramer RN - 12/15/2023 1:08 PM CDT 12/15/23 1307 Discharge Planning Support System Spouse/Significant Other;Family members (Jean Claude/spouse [phone]) Anticipated discharge level of care Private residence Does the patient need discharge transport arranged? No (family to provide transportation) Discharge Transportation Communication Mode of transport has been discussed with the patient/family. All are agreeable to the plan and understand their responsibilities to ensure the safe transfer. No further CM/SW intervention is anticipated at this time. Post Acute Care Plan Home Care Services N/A OP Services N/A DME N/A Post Acute Care Facility N/A CM Progression of Care Update Per Medical Chart/Rounds/IDR: Patient is not medically ready for discharge ADD: 12-25 Discharge Barriers: No anticipated discharge barriers Education Needs Identified (plan): Pending CRS surgery 12/23. Plan to transfer to Surgery floor. No anticipated home care needs at this time F/U Appointments: Pending Patient's Identified Problem/Goal Problem:?Ensure acute medical needs are met and that patient has a safe discharge plan. Goal:?Secure a discharge plan that patient/family are agreeable with?and ensure patient has continuum of care. Patient and/or family are agreeable with plan. workers compensation manager will continue to follow and assist with discharge planning as needed. If any further discharge needs arise, please contact the covering embedded case manager. Dariana Cramer RN,BSN,CM * Consults, Subsequent - Fernando Dooley MD - 12/15/2023 9:51 AM CDT Private GI Subsequent Consult Subjective Chief complaint of FTT, contained sigmoid perf Interval History: - Cont to feel well. Eating well with good BM. Objective Physical Exam: Vitals: 24hr Min/Max: Temp Min: 36.6 ??C (97.9 ??F) Max: 37.3 ??C (99.1 ??F) Pulse Min: 93 Max: 103 BP Min: 111/59 Max: 132/64 Resp Min: 18 Max: 18 SpO2 Min: 96 % Max: 99 % Most Recent : Vitals: 12/15/23 0750 BP: 122/69 Pulse: 94 Resp: 18 Temp: 36.6 ??C (97.9 ??F) SpO2: 96% Physical exam: Constitutional: NAD. In bed. Eyes: EOMI grossly intact. Anicteric ENT: NCAT. moist mucus membranes. Lungs: Breathing comfortably on RA. Unlabored. Trachea midline. Cardiovascular: RRR, normal S1 and S2. GI: Soft, NT, ND Skin: No new rashes, lesions or bruises Extremities: Normal without edema or cyanosis Neuro: Alert. MAEW. Assessment/Plan Principal Problem: Physical deconditioning Active Problems: Splenic abscess Pulmonary nodule Hepatic abscess Severe malnutrition (CMS/HCC) Consolidation of left upper lobe of lung (CMS/HCC) (HCC) Fever Darius Russo is a 63 y.o. female with PMH HTN, T2DM, s/p cholecystectomy, a large adnexal mass c/f malignancy, and suspected crohn???s colitis who presents for contained sigmoid perf and FTT. 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 She was admitted with the plan to initiate IFX, however she had new symptoms of a cough and CT showing cavitary pulmonary nodules as well as increased pericolonic fluid collection. Both of these findings pose significant barriers to initiating abx. While mycobacterial/fungal infection causing thesecavitary lesions in the lung are still possible, their interval improvement without directed therapy is reassuring. Progressive worsening of her sigmoid phlegmon this admission however still poses a contraindication to IFX initiation. Additionally, she has had 2 episodes of fevers, chills, diaphoresis, hypotension and tachycardia which are presumably 2/2 translocation form her worsening sigmoid perf/fluid collection. Recommendations: - Appreciate CRS/Business Office Representative Onc consults. Discussing with them if recurrent SIRS 2/2 colonic fluid collection would influence more urgent surgical intervention - abx per primary/ID - Cont optimization of nutritional status. TPN not viable given intraabdominal fluid collection with mircroabscesses and possible infectious process involving lungs - Not a candidate for IBD medical therapy pending surgical intervention We will continue to follow-up with you. Thank you for involving us in the care of this patient. If you have any questions, please call the private GI pager during weekdays or the [facility] phone during after hours and weekends. Fernando Dooley MD GI Fellow * Plan of Care - Christine Avendano RN - 12/15/2023 8:02 AM CDT Problem: Discharge Planning Goal: Understanding discharge needs will improve Outcome: Progressing Problem: Fall Risk Goal: Ability to state ways to decrease the risk of falls will improve Outcome: Progressing Goal: Will remain free from falls Outcome: Progressing Goal: Will remain free from injury from falls Outcome: Progressing Problem: Lack of Knowledge Goal: Ability to describe self care measures that may prevent or decrease complications related to Type 2 Diabetes will improve Outcome: Progressing Problem: Health Nutrition Goal: Nutritional intake and knowledge related to Diabetes will improve Outcome: Progressing Problem: Neurosensory Goal: Achieves maximal functionality and self care Outcome: Progressing Problem: Musculoskeletal Goal: Return mobility to safest level of function Outcome: Progressing Goal: Maintain proper alignment of affected body part Outcome: Progressing Goal: Return ADL status to a safe level of function Outcome: Progressing Goal: Ability to perform activities at highest level will improve Outcome: Progressing Goal: Mobility, ROM and muscle strength will improve Outcome: Progressing Problem: Gastrointestinal Goal: Minimal or absence of nausea and vomiting Outcome: Progressing Goal: Maintains or returns to baseline bowel function Outcome: Progressing Goal: Maintains adequate nutritional intake Outcome: Progressing Problem: Metabolic/Fluid and Electrolytes Goal: Electrolytes maintained within normal limits Outcome: Progressing Goal: Glucose maintained within prescribed range Outcome: Progressing Problem: Lack of Knowledge Goal: Ability to develop a pain control plan will improve Outcome: Progressing Problem: Medication Goal: Satisfaction with pain management medication regimen will improve Outcome: Progressing Problem: Sensory Goal: Ability to identify factors that increase pain levels will improve while working to decrease the patient's pain levels Outcome: Progressing Problem: Coping Goal: Ability to cope will improve Outcome: Progressing Problem: Health Behavior Goal: Identification of resources available to assist in meeting health care needs will improve Outcome: Progressing Problem: Respiratory Goal: Achieves optimal ventilation and oxygenation Outcome: Progressing Goal: Ability to maintain a clear airway will improve Outcome: Progressing Problem: Skin/Tissue Integrity Goal: Incisions, wounds, or drain sites healing without S/S of infection Outcome: Progressing Problem: Infection Goal: Absence of infection during hospitalization Outcome: Progressing Problem: Isolation Lack of Knowledge Goal: Knowledge of risk factors and measures for prevention of condition will improve Outcome: Progressing Problem: Isolation Physical Regulation Goal: Isolation- Spread of further infection will be prevented Outcome: Progressing Goal: Isolation- Complications related to the disease process, condition, or treatment will be avoided or minimized. Outcome: Progressing Problem: Hematologic Goal: Maintains hematologic stability Outcome: Progressing Problem: Skin Integrity Impairment Risk Goal: Mobility will improve Outcome: Progressing Goal: Understanding of ways to prevent future skin breakdown will improve Outcome: Progressing Goal: Nutritional status will improve Outcome: Progressing Goal: Risk for impaired skin integrity will decrease Outcome: Progressing Problem: Genitourinary Goal: Absence of urinary retention Outcome: Progressing Problem: Cardiovascular Goal: Maintains optimal cardiac output and hemodynamic stability Outcome: Progressing Goals: Clinical Goals for the Shift: Monitor vitals, labs, provide safety and comfort * Plan of Care - Nohemi Corona RN - 12/14/2023 7:36 PM CDT Problem: Fall Risk Goal: Ability to state ways to decrease the risk of falls will improve Outcome: Progressing Problem: Health Nutrition Goal: Nutritional intake and knowledge related to Diabetes will improve Outcome: Progressing Problem: Gastrointestinal Goal: Minimal or absence of nausea and vomiting Outcome: Progressing Problem: Medication Goal: Satisfaction with pain management medication regimen will improve Outcome: Progressing Goals: Clinical Goals for the Shift: Monitor vitals, labs, provide safety and comfort Summary: * Plan of Care - Anthony Lilly RN - 12/14/2023 5:12 AM CDT Goals: Clinical Goals for the Shift: Monitor vitals, labs, provide safety and comfort Summary: Problem: Discharge Planning Goal: Understanding discharge needs will improve Outcome: Progressing Problem: Fall Risk Goal: Ability to state ways to decrease the risk of falls will improve Outcome: Progressing Goal: Will remain free from falls Outcome: Progressing Goal: Will remain free from injury from falls Outcome: Progressing Problem: Lack of Knowledge Goal: Ability to describe self care measures that may prevent or decrease complications related to Type 2 Diabetes will improve Outcome: Progressing Problem: Health Nutrition Goal: Nutritional intake and knowledge related to Diabetes will improve Outcome: Progressing Problem: Neurosensory Goal: Achieves maximal functionality and self care Outcome: Progressing Problem: Musculoskeletal Goal: Return mobility to safest level of function Outcome: Progressing Goal: Maintain proper alignment of affected body part Outcome: Progressing Goal: Return ADL status to a safe level of function Outcome: Progressing Goal: Ability to perform activities at highest level will improve Outcome: Progressing Goal: Mobility, ROM and muscle strength will improve Outcome: Progressing Problem: Gastrointestinal Goal: Minimal or absence of nausea and vomiting Outcome: Progressing Goal: Maintains or returns to baseline bowel function Outcome: Progressing Goal: Maintains adequate nutritional intake Outcome: Progressing Problem: Metabolic/Fluid and Electrolytes Goal: Electrolytes maintained within normal limits Outcome: Progressing Goal: Glucose maintained within prescribed range Outcome: Progressing Problem: Lack of Knowledge Goal: Ability to develop a pain control plan will improve Outcome: Progressing Problem: Medication Goal: Satisfaction with pain management medication regimen will improve Outcome: Progressing Problem: Sensory Goal: Ability to identify factors that increase pain levels will improve while working to decrease the patient's pain levels Outcome: Progressing Problem: Coping Goal: Ability to cope will improve Outcome: Progressing Problem: Health Behavior Goal: Identification of resources available to assist in meeting health care needs will improve Outcome: Progressing Problem: Respiratory Goal: Achieves optimal ventilation and oxygenation Outcome: Progressing Goal: Ability to maintain a clear airway will improve Outcome: Progressing Problem: Skin/Tissue Integrity Goal: Incisions, wounds, or drain sites healing without S/S of infection Outcome: Progressing Problem: Infection Goal: Absence of infection during hospitalization Outcome: Progressing Problem: Isolation Lack of Knowledge Goal: Knowledge of risk factors and measures for prevention of condition will improve Outcome: Progressing Problem: Isolation Physical Regulation Goal: Isolation- Spread of further infection will be prevented Outcome: Progressing Goal: Isolation- Complications related to the disease process, condition, or treatment will be avoided or minimized. Outcome: Progressing Problem: Hematologic Goal: Maintains hematologic stability Outcome: Progressing Problem: Skin Integrity Impairment Risk Goal: Mobility will improve Outcome: Progressing Goal: Understanding of ways to prevent future skin breakdown will improve Outcome: Progressing Goal: Nutritional status will improve Outcome: Progressing Goal: Risk for impaired skin integrity will decrease Outcome: Progressing Problem: Genitourinary Goal: Absence of urinary retention Outcome: Progressing Problem: Cardiovascular Goal: Maintains optimal cardiac output and hemodynamic stability Outcome: Progressing * Plan of Andres - Krupa Cohen RN - 12/13/2023 10:56 AM CDT Problem: Discharge Planning Goal: Understanding discharge needs will improve Outcome: Progressing Problem: Fall Risk Goal: Ability to state ways to decrease the risk of falls will improve Outcome: Progressing Goal: Will remain free from falls Outcome: Progressing Goal: Will remain free from injury from falls Outcome: Progressing Problem: Skin Integrity Impairment Risk Goal: Mobility will improve Outcome: Progressing Goal: Understanding of ways to prevent future skin breakdown will improve Outcome: Progressing Goal: Nutritional status will improve Outcome: Progressing Goal: Risk for impaired skin integrity will decrease Outcome: Progressing Problem: Health Nutrition Goal: Nutritional intake and knowledge related to Diabetes will improve Outcome: Progressing Problem: Neurosensory Goal: Achieves maximal functionality and self care Outcome: Progressing Goals: Clinical Goals for the Shift: Monitor vitals, labs, provide safety and comfort Summary: * Plan of Care - Debbie Neville - 12/12/2023 7:53 PM CDT Goals: Clinical Goals for the Shift: monitor vital signs and promote rest and comfort Problem: Discharge Planning Goal: Understanding discharge needs will improve Outcome: Progressing Problem: Fall Risk Goal: Ability to state ways to decrease the risk of falls will improve Outcome: Progressing Goal: Will remain free from falls Outcome: Progressing Goal: Will remain free from injury from falls Outcome: Progressing Problem: Lack of Knowledge Goal: Ability to describe self care measures that may prevent or decrease complications related to Type 2 Diabetes will improve Outcome: Progressing Problem: Health Nutrition Goal: Nutritional intake and knowledge related to Diabetes will improve Outcome: Progressing Problem: Neurosensory Goal: Achieves maximal functionality and self care Outcome: Progressing Problem: Musculoskeletal Goal: Return mobility to safest level of function Outcome: Progressing Goal: Maintain proper alignment of affected body part Outcome: Progressing Goal: Return ADL status to a safe level of function Outcome: Progressing Goal: Ability to perform activities at highest level will improve Outcome: Progressing Goal: Mobility, ROM and muscle strength will improve Outcome: Progressing Problem: Gastrointestinal Goal: Minimal or absence of nausea and vomiting Outcome: Progressing Goal: Maintains or returns to baseline bowel function Outcome: Progressing Goal: Maintains adequate nutritional intake Outcome: Progressing Problem: Metabolic/Fluid and Electrolytes Goal: Electrolytes maintained within normal limits Outcome: Progressing Goal: Glucose maintained within prescribed range Outcome: Progressing Problem: Lack of Knowledge Goal: Ability to develop a pain control plan will improve Outcome: Progressing Problem: Medication Goal: Satisfaction with pain management medication regimen will improve Outcome: Progressing Problem: Sensory Goal: Ability to identify factors that increase pain levels will improve while working to decrease the patient's pain levels Outcome: Progressing Problem: Coping Goal: Ability to cope will improve Outcome: Progressing Problem: Health Behavior Goal: Identification of resources available to assist in meeting health care needs will improve Outcome: Progressing Problem: Respiratory Goal: Achieves optimal ventilation and oxygenation Outcome: Progressing Goal: Ability to maintain a clear airway will improve Outcome: Progressing Problem: Skin/Tissue Integrity Goal: Incisions, wounds, or drain sites healing without S/S of infection Outcome: Progressing Problem: Infection Goal: Absence of infection during hospitalization Outcome: Progressing Problem: Isolation Lack of Knowledge Goal: Knowledge of risk factors and measures for prevention of condition will improve Outcome: Progressing Problem: Isolation Physical Regulation Goal: Isolation- Spread of further infection will be prevented Outcome: Progressing Goal: Isolation- Complications related to the disease process, condition, or treatment will be avoided or minimized. Outcome: Progressing Problem: Hematologic Goal: Maintains hematologic stability Outcome: Progressing Problem: Skin Integrity Impairment Risk Goal: Mobility will improve Outcome: Progressing Goal: Understanding of ways to prevent future skin breakdown will improve Outcome: Progressing Goal: Nutritional status will improve Outcome: Progressing Goal: Risk for impaired skin integrity will decrease Outcome: Progressing Problem: Genitourinary Goal: Absence of urinary retention Outcome: Progressing Problem: Cardiovascular Goal: Maintains optimal cardiac output and hemodynamic stability Outcome: Progressing * Assessment & Plan Note - Cara Guy NP - 12/12/2023 12:32 PM CDT Associated Problem(s): Pulmonary nodule Patient is a 63 y.o. female with a history of hypertension, type 2 diabetes, and inflammatory boweldisease who is admitted [facility] for progressive weight loss and nausea in the setting of multiple admissions for diverticulitis complicated by contained sigmoid perforation, scattered liver and spleen abscesses and adnexal mass. She was admitted to [facility] on 11/24 for further workup and ID [...] processes. Near resolution of hepatic and splenic abs cesses. Cystic R adnexal lesion w/o focus of elevated FDG uptake. Hypermetabolic soft tissue nodulein pelvic peritoneum and within a fat-containing umbilical [...] please do not hesitate to reach out. IO ARTIST IO ARTIST * Plan of Care - Dariana Cramer RN - 12/12/2023 12:30 PM CDT 12/12/23 1229 Discharge Planning Support System Spouse/Significant Other;Family members (Jean Claude/spouse [phone]) Anticipated discharge level of care Private residence Does the patient need discharge transport arranged? No (Jean Claude/spouse [phone]) Discharge Transportation Communication Mode of transport has been discussed with the patient/family. All are agreeable to the plan and understand their responsibilities to ensure the safe transfer. No further CM/SW intervention is anticipated at this time. Post Acute Care Plan Home Care Services N/A OP Services N/A DME N/A Post Acute Care Facility N/A CM Progression of Care Update Per Medical Chart/Rounds/IDR: Patient is not medically ready for discharge ADD: 12-25 Discharge Barriers: No anticipated discharge barriers Education Needs Identified (plan): Pending CRS surgery 12/23. Plan to transfer to Surgery floor. No anticipated home care needs at this time F/U Appointments: Pending Patient's Identified Problem/Goal Problem:?Ensure acute medical needs are met and that patient has a safe discharge plan. Goal:?Secure a discharge plan that patient/family are agreeable with?and ensure patient has continuum of care. Patient and/or family are agreeable with plan. workers compensation manager will continue to follow and assist with discharge planning as needed. If any further discharge needs arise, please contact the covering embedded case manager. Dariana Cramer RN,BSN,CM * Medical Student - Amanda Westfall - 12/12/2023 11:15 AM CDT Medicine Daily Progress Note Chief complaint: failure to thrive iso IBD with contained microperf Interval History: Overnight: NAEON. VSS. Cough improving, only 1 dose tessalon pearls yesterday. Objective Vital Signs: 24hr Min/Max: Temp Min: 36.4 ??C (97.5 ??F) Max: 36.6 ??C (97.9 ??F) Pulse Min: 88 Max: 97 BP Min: 116/59 Max: 133/70 Resp Min: 18 Max: 18 SpO2 Min: 96 % Max: 99 % Intake/Output: Intake/Output Summary (Last 24 hours) at 12/12/2023 1130 Last data filed at 12/11/2023 2100 Gross per 24 hour Intake 100 ml Output -- Net 100 ml Physical Exam: General appearance: no acute distress HEENT: NCAT, MMM, anicteric. Throat pink, without erythema. Tonsils not enlarged, no exudates. Lungs: decreased breath sounds on the left, no w/r/r, non-labored Heart: RRR, S1, S2 normal, no murmur, rub or gallop. JVP not elevated, no LE edema. Abdomen: soft, abdomen full, not tympanitic to percussion, bowel sounds normal. Stable LLQ pain to palpation. Extremities: extremities normal, warm and well-perfused, equal pulses. No mottling. Pedal pulses palpable. Skin: warm and dry Neurologic: No abnormal movements, non-focal exam Current Medications: Current Facility-Administered Medications: acetaminophen (TYLENOL) tablet 1,000 mg, 1,000 mg, oral, Q6H PRN al & mag hydroxide ktwpcpximjq-zojrqixgsqpcqyh-ryrywlsla-nystatin (MAGIC MOUTHWASH) oral suspension 1-1-1-1 15 mL, 15 mL, swish & spit, Q8H PRN, 15 mL at 12/07/23 1719 benzocaine-menthoL (CHLORASEPTIC) lozenge 1 lozenge, 1 lozenge, mouth/throat, Q2H PRN, 1 lozenge at1 0000 benzonatate (TESSALON) capsule 100 mg, 100 mg, oral, TID PRN, 100 mg at 12/10/232002 ciprofloxacin (CIPRO) tablet 500 mg, 500 mg, oral, BID - special, 500 mg at 12/12/23 0550 dextrose gel in packet 15 g, 15 g, oral, Q15 Min PRN OR dextrose (D10W) 10% bolus 250 mL, 250 mL, intravenous, Q15 Min PRN enoxaparin (LOVENOX) syringe 40 mg, 40 mg, subcutaneous, Daily-2100, 40 mg at 12/11/23 2208 folic acid (FOLVITE) tablet 1 mg, 1 mg, oral, Daily, 1 mg at 12/12/23 0914 glucagon injection 1 mg, 1 mg, intramuscular, Q30 Min PRN guaiFENesin ER (MUCINEX) extended release tablet 1,200 mg, 1,200 mg, oral, BID PRN, 1,200 mg at 12/07/23 210 insulin lispro (HumaLOG, ADMELOG) 100 unit/mL injection 0-10 Units, 0-10 Units, subcutaneous, TID with meals, 4 Units at 12/11/23 1340 insulin lispro (HumaLOG, ADMELOG) 100 unit/mL injection 0-5 Units, 0-5 Units, subcutaneous, Nightly, 2 Units at 12/11/232206 [Held by Provider] losartan (COZAAR) tablet 25 mg, 25 mg, oral, Daily, 25 mg at 12/09/23 0943 metroNIDAZOLE (FLAGYL) tablet 500 mg, 500 mg, oral, BID, 500 mg at 12/12/23 0914 multivitamin with folic acid 400 mcg tablet 1 tablet, 1 tablet, oral, Daily, 1 tablet at 12/12/23 0914 ondansetron (ZOFRAN) injection 4 mg, 4 mg, intravenous, Q4H PRN, 4 mg at 12/09/[address] (PROTONIX) extended release tablet 40 mg, 40 mg, oral, Daily, 40 mg at 12/12/23 0914 phenoL (CHLORASEPTIC) 1.4 % oral spray 1 spray, 1 spray, mouth/throat, Q4H PRN, 1 spray at 058 polyethylene glycol (MIRALAX) packet 17 g, 17 g, oral, Daily PRN ramelteon (ROZEREM) tablet 8 mg, 8 mg, oral, Nightly PRN thiamine (VITAMIN B1) tablet 100 mg, 100 mg, oral, Daily, 100 mg at 12/12/23 0914 Lab/Radiology/Diagnostic Review: Recent Labs Lab Units 12/11/23 2215 12/11/23 0314 12/11/23 0010 12/09/23 2302 12/09/23 1227 12/08/23 2030 HEMOGLOBIN g/dL 7.3* < > 7.0* 7.3* 9.1* 8.4* HEMATOCRIT % 25.3* < > 23.7* 24.2* 31.0* 27.6* WBC K/cumm 8.2 -- 10.2* 17.9* 16.5* 10.0* PLATELETS K/cumm 290 -- 424* 413* 516* 483* < > = values in this interval not displayed. Recent Labs Lab Units 12/11/23 2215 12/11/23 0010 12/09/23 2302 12/09/23 1227 12/08/23 2030 12/07/23 2116 SODIUM mmol/L 140 138 < > 136 137 136 POTASSIUM PLASMA mmol/L 4.4 3.9 < > See Comment 4.4 4.4 CHLORIDE mmol/L 103 105 < > 102 104 102 CO2 mmol/L 28 26 < > 24 26 25 ANIONGAP mmol/L 9 7 < > 10 7 9 BUN SERUM mg/dL 13 13 < > 11 13 14 CREATININE mg/dL 0.80 0.86 < > 0.73 0.80 0.82 CALCIUM mg/dL 8.2* 8.4* < > 8.8 8.7 8.3* MAGNESIUM mg/dL 2.0 1.8 -- 2.0 2.1 2.3 < > = values in this interval not displayed. Recent Labs Lab Units 12/11/23 2215 ALBUMIN g/dL 2.8* ALK PHOS Units/L 83 AST Units/L 25 ALT Units/L 11 BILIRUBIN TOTAL mg/dL <0.2 BILIRUBIN DIRECT mg/dL <0.2 BCx 12/03: No growth BCx 12/08: NGTD Assessment/Plan Ms. Russo is a 63 y.o. female with presents with failure to thrive, IBD with contained sigmoid microperf, adnexal mass, new cavitating pulmonary lesions admitted for coordination of care. Darius Russo has a complex constellation of symptoms without a clear unifying etiology at this point in time. Her weight loss and lung nodules in the setting of adnexal mass is concerning for ovarian malignancy, but secondary school registrar/onc evaluation of adnexal mass gives a low index of suspicion for primary ovarian malignancy, and biopsy of lung tissue was not suggestive of malignancy. Weight loss may be secondary to mass effect from ovarian cyst, complicated by malabsorption secondary to IBD. Liver and spleen abscesses may suggest bacterial translocation in the setting of Crohn's disease flare, with subsequent seeding of lung. Although infectious workup of lungs has been negative, patient had been on ant ibiotics for several weeks before those samples were taken, so our findings on imaging may represent an improving process. 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 Symptoms well controlled on mesalamine until early this summer, with onset of 5+ daily nonbloody diarrhea, fecal incontinence, 65 lb weight loss, poor appetite, early satiety. Imaging with perforated sigmoid diverticulitis, has previously been managed conservatively. Outpatient was treated with mesalamine suppositories at home, follows with Dr. Jung. CT CAP 11/25 with worsening contained perf. PET CT 12/03 with slight interval increase in size of phlegmon. - Antibiotic history: zosyn (10/02-10/03, 11/03-11/05), bactrim (10/04-11/03), flagyl (10/04-11/03), augmentin (10/04-11/03), cipro (11/06-12/03), flagyl (11/06-12/03) vanc (12/03-12/05), zosyn (12/03-12/05), cipro (12/05-12/08), flagyl (12/05-12/08). Ertapenem (12/08-12/09). Cipro (12/09-), flagyl (12/09-) - GI consult: patient not a candidate for infliximab at this time given active infection with liverand spleen microabscesses, sigmoid phlegmon, and suspected lung infection. She is likely as medically optimized for surgery as is reasonable. - Colorectal surgery consult: TAC with concurrent secondary school registrar/onc resection of adnexal mass on 12/23 - IPAP recs: - DOS T&S and H&H # Tachyarrhythmia # Demand ischemia # Sepsis # bacterial translocation iso IBD On 12/03 episode of sudden onset rigors, tachyarrythmia and hypertension resolved with metoprolol, followed by nausea/emesis and several hours of fever, hypotension which responded well to IV fluids and broadened abx to vanc/zosyn x 2 days. Following tachyarrhythmia troponins were elevated, EKG reassuring against NC so suspect demand ischemia. Similar episode on 12/08 with sudden onset rigors, narrow complex tachycardia to 160s, hypertensionwhich responded well to 2x2.5 metoprolol. Now nausea, bilious emesis, febrile to 102.7, hypotensionwith MAP 60s, tachycardia to 130. POC lactate 4.9. Bolused 2L LR. Suspect a similar etiology of transient bacteremia secondary to bacterial translocation. - Cipro (12/09-), flagyl (12/09-) - CBC, CMP, Bcx pending - replete for K>4, Mg>2 - Given that patient has had multiple episodes with significant tachyarrhythmia and sepsis it is likely that she will remain inpatient until we can obtain source control. # Pulmonary nodules # Pleural effusion CT 11/25 with cavitating L upper lobe nodules, interlobular septal line thickening, regional lymphadenopathy, L pleural effusion and pleural thickening. Asymptomatic aside from cough x 1 week prior toadmission. No history of immunomodulatory treatment. Low suspicion for malignancy given that recent imaging in September shows no lung nodules. BAL 11/27. Workup for bacterial, mycobacterial, fungal, and viral etiologies has been negative thus far. Surgical pathology and cytology results revealing of organizing lung injury with a broad possible differential, but no evidence of malignancy or opportunistic infection. - Pulmonology c/s: signed off. - ID consult: sending broad PCR and sequencing from lung biopsies. Rec initiating ANCA vasulitis work up, which is pending. - Continue tessalon pearls TID PRN for cough # Liver and spleen microabscesses Noted on recent imaging. Recent balaji in August, per op note GB was full of stones and difficult to grasp but low suspicion for retained gallstone as nothing seen on imaging and microabscesses are intraparenchymal. During October admission IR consulted, abscesses too small to drain. Improved on 11/25 CT. Likely 2/2 bacterial translocation iso IBD flare. - abx as above # Adnexal mass Large multiseptated O RADS 3 lesion, likely arising from the right ovary found incidentally on imaging in August. Following with secondary school registrar onc, Dr. Rhodes. 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 - Considering colectomy with CRS so will also consult secondary school registrar/onc for consideration of concurrent cyst removal. # Severe Chronic Malnutrition 65 lb weight loss since July. Meets ASPEN criteria for severe chronic malnutrition. PO intake improved throughout admission. 2 lb weight loss from 11/24 admit to 12/03. - nutrition consult - Thiamine 500 IV x 3 loading then 100 mg daily - daily folic acid - daily multivitamin - daily B6 100 mg x 5 days (completed) # Normocytic anemia # Secondary hemochromatosis Iron deposition in liver noted incidentally on recent imaging. Elevated ferritin to 1868 iso acute inflammatory process. History of 3 lifetime blood transfusions and several recent iron infusions foranemia. However, given that anemia has been normocytic and patient has been chronically ill for several months, favor anemia of chronic disease over iron deficiency as etiology. - nutritional optimization, avoid further iron supplementation if possible - q3 day T&S, hgb >7. Consented. # T2DM A1C in October was 5.7. Managed on metformin 500 q24. - SSI # HTN -losartan 25 (cont home med) Code - Full Diet - Carb consistent DVT prophylaxis - subq lovenox, SCDs. Note that patient is at increased risk of VTE 2/2 IBD. Dispo - Pending surgical plan. Cosigned by Álvaro Radford MD at 12/13/2023 7:14 AM CDT * Plan of Care - Kaylee Tovar - 12/12/2023 10:15 AM CDT Goals: Clinical Goals for the Shift: Monitor labs and vitals, provide safety and comfort Problem: Discharge Planning Goal: Understanding discharge needs will improve Outcome: Progressing Problem: Fall Risk Goal: Ability to state ways to decrease the risk of falls will improve Outcome: Progressing Goal: Will remain free from falls Outcome: Progressing Goal: Will remain free from injury from falls Outcome: Progressing Problem: Lack of Knowledge Goal: Ability to describe self care measures that may prevent or decrease complications related to Type 2 Diabetes will improve Outcome: Progressing Problem: Health Nutrition Goal: Nutritional intake and knowledge related to Diabetes will improve Outcome: Progressing Problem: Neurosensory Goal: Achieves maximal functionality and self care Outcome: Progressing Problem: Musculoskeletal Goal: Return mobility to safest level of function Outcome: Progressing Goal: Maintain proper alignment of affected body part Outcome: Progressing Goal: Return ADL status to a safe level of function Outcome: Progressing Goal: Ability to perform activities at highest level will improve Outcome: Progressing Goal: Mobility, ROM and muscle strength will improve Outcome: Progressing Problem: Gastrointestinal Goal: Minimal or absence of nausea and vomiting Outcome: Progressing Goal: Maintains or returns to baseline bowel function Outcome: Progressing Goal: Maintains adequate nutritional intake Outcome: Progressing Problem: Metabolic/Fluid and Electrolytes Goal: Electrolytes maintained within normal limits Outcome: Progressing Goal: Glucose maintained within prescribed range Outcome: Progressing Problem: Lack of Knowledge Goal: Ability to develop a pain control plan will improve Outcome: Progressing Problem: Medication Goal: Satisfaction with pain management medication regimen will improve Outcome: Progressing Problem: Sensory Goal: Ability to identify factors that increase pain levels will improve while working to decrease the patient's pain levels Outcome: Progressing Problem: Coping Goal: Ability to cope will improve Outcome: Progressing Problem: Health Behavior Goal: Identification of resources available to assist in meeting health care needs will improve Outcome: Progressing Problem: Respiratory Goal: Achieves optimal ventilation and oxygenation Outcome: Progressing Goal: Ability to maintain a clear airway will improve Outcome: Progressing Problem: Skin/Tissue Integrity Goal: Incisions, wounds, or drain sites healing without S/S of infection Outcome: Progressing Problem: Infection Goal: Absence of infection during hospitalization Outcome: Progressing Problem: Isolation Lack of Knowledge Goal: Knowledge of risk factors and measures for prevention of condition will improve Outcome: Progressing Problem: Isolation Physical Regulation Goal: Isolation- Spread of further infection will be prevented Outcome: Progressing Goal: Isolation- Complications related to the disease process, condition, or treatment will be avoided or minimized. Outcome: Progressing Problem: Hematologic Goal: Maintains hematologic stability Outcome: Progressing Problem: Skin Integrity Impairment Risk Goal: Mobility will improve Outcome: Progressing Goal: Understanding of ways to prevent future skin breakdown will improve Outcome: Progressing Goal: Nutritional status will improve Outcome: Progressing Goal: Risk for impaired skin integrity will decrease Outcome: Progressing Problem: Genitourinary Goal: Absence of urinary retention Outcome: Progressing Problem: Cardiovascular Goal: Maintains optimal cardiac output and hemodynamic stability Outcome: Progressing Summary: * Consults, Subsequent - Cara Guy NP - 12/12/2023 4:48 AM CDT Infectious Disease Subsequent Consult Note Infectious Disease Team: General 4 Contact Information: Please see [facility] Treatment Team listing for up-to-date contact information. Subjective Chief complaint of Spleen and liver abscesses, contained perforation, lung nodules with cavitation Interval History: -Repeat blood cultures have remained NGTD -Plan is for patient to remain admitted until surgery. -Would not broaden antibiotics unless patient clinically worsens. -She would benefit from surgical source control. Objective Anti-infectives (From admission, onward) Start Dose/Rate Route Frequency Ordered Stop 12/06/23 1223 al & mag hydroxide xgmpnxtdvvu-wjrebonuysdjkdj-eaplujdxe-nystatin (MAGIC MOUTHWASH) oral suspension 1-1-1-1 15 mL 15 mL swish & spit Every 8 hours PRN 12/06/23 1223 11/26/23 0900 metroNIDAZOLE (FLAGYL) tablet 500 mg 500 mg oral 2 times daily 11/25/23211911/26/23 0600 ciprofloxacin (CIPRO) tablet 500 mg 500 mg oral 2 times daily (for quinolones,etc) 11/25/232119 Vitals: 24hr Min/Max: Temp Min: 36.4 ??C (97.5 ??F) Max: 36.6 ??C (97.9 ??F) Pulse Min: 88 Max: 97 BP Min: 116/59 Max: 133/70 Resp Min: 18 Max: 18 SpO2 Min: 96 % Max: 99 % Most Recent : Vitals: 12/12/23 0727 BP: 131/74 Pulse: 94 Resp: 18 Temp: 36.6 ??C (97.9 ??F) SpO2: 96% I/O last 2 completed shifts: In: 100 [P.O.:100] Out: - Active LDAs: Peripheral IV 12/07/23 22 G Posterior;Right Wrist (Active) Number of days: 5 Peripheral IV 20 G Anterior;Distal;Left Forearm (Active) Number of days: Physical Exam: Physical Exam Constitutional: General: She is not in acute distress. Comments: Chronically ill appearing HENT: Nose: Nose normal. Mouth/Throat: Mouth: Mucous membranes are moist. Cardiovascular: Rate and Rhythm: Normal rate and regular rhythm. Pulmonary: Effort: Pulmonary effort is normal. No respiratory distress. Breath sounds: Normal breath sounds. Abdominal: General: Bowel sounds are normal. Palpations: Abdomen is soft. Tenderness: There is no abdominal tenderness. Musculoskeletal: Right lower leg: No edema. Left lower leg: No edema. Skin: General: Skin is warm and dry. Findings: No rash. Neurological: General: No focal deficit present. Mental Status: She is alert and oriented to person, place, and time. Mental status is at baseline. Psychiatric: Mood and Affect: Mood normal. Behavior: Behavior normal. Thought Content: Thought content normal. Judgment: Judgment normal. Lab/Radiology/Diagnostic Review: Lab Results Component Value Date MICROBIOLOGY Preliminary Report: No growth to date. 12/09/2023 MICROBIOLOGY Preliminary Report: No growth to date. 12/09/2023 MICROBIOLOGY Final Report: No growth 12/04/2023 MICROBIOLOGY Final Report: No growth 12/04/2023 MICROBIOLOGY Preliminary Report: No growth to date. 11/29/2023 Radiology results were reviewed. No results found. No results found. Assessment/Plan Fever Assessment & Plan Team reports patient had a true fever with rigors and shakes. Blood cultures obtained and patient transitioned to ertapenem. Blood cultures have remained NGTD and patient has transitioned back to cipro and metronidazole. Hepatic abscess Assessment & Plan Continue cipro and metronidazole. Pulmonary nodule Assessment & Plan Patient is a 63 y.o. female with a history of hypertension, type 2 diabetes, and inflammatory boweldisease who is [facility] for progressive weight loss and nausea in the setting of multiple admissions for diverticulitis complicated by contained sigmoid perforation, scattered liver and spleen abscesses and adnexal mass. She was admitted to [facility] on 11/24 for further workup and ID [...] processes. Near resolution of hepatic and splenic abs cesses. Cystic R adnexal lesion w/o focus of elevated FDG uptake. Hypermetabolic soft tissue nodulein pelvic peritoneum and within a fat-containing umbilical hernia. Blood cultures 12/08: NGTD Reviewed all culture results. Discussed ID involvement in care and overall negative infections workup. Patient with no new symptoms or concerns at this time. Reports cough has improved. Recommendations: - Consider non-infectious etiologies -Will follow up on results. Of note fungal and AFB cultures take several weeks to finalize -Thank you for allowing us to participate in the care of this patient. For questions or concerns, please do not hesitate to reach out. Splenic abscess Assessment & Plan Patient is a 63 y.o. female with a history of hypertension, type 2 diabetes, and inflammatory boweldisease who is admitted [facility] for progressive weight loss and nausea in the setting of multiple admissions for diverticulitis complicated by contained sigmoid perforation, scattered liver and spleen abscesses and adnexal mass. She was admitted to [facility] on 11/24 for further workup and ID [...] processes. Near resolution of hepatic and splenic abs cesses. Cystic R adnexal lesion w/o focus of elevated FDG uptake. Hypermetabolic soft tissue nodulein pelvic peritoneum and within a fat-containing umbilical hernia. Patient has attempted to d/c twice this admission. At present, patient reports plan is to remain inthe hospital until surgery occurs. Patient supportive of this plan. Would not empirically broaden antibiotics unless patient clinically worsens. This is an issue of source control rather than antibiotic failure. Recommendations. -Continue metronidazole and ciprofloxacin. Would not broaden unless patient clinically worsening. -If patient fevers, please obtain blood cultures and targeted fever workup. -Patient would benefit from surgical source control. -Thank you for allowing us to participate in the care of this patient. For questions or concerns, please do not hesitate to reach out. Today, I am treating the patient for Spleen and liver abscesses, contained perforation, lung nodules with cavitation which can cause fever, pain, leukocytosis, sepsis in the short-term future in the absence of appropriate treatment, as described in the note., Reviewed notes by CRS, TEAR DOWN MATCHER, GI, nursingand primary team to determine appropriate plan of care as in the note., Estimated Creatinine Clearance: 52.9 mL/min (by C-G 65 yr and older- minimum SCr 0.8 based on SCr of 0.8 mg/dL). - reviewed; antibiotics recommended above are dosed accordingly., and The patient is being intensively monitored for antimicrobial toxicity from cipro and metro with the following tests: cbc with diff, cmp. Cara Guy, Team 4 Infectious Diseases INDUSTRIAL SECURITY ANALYST Please contact the Team 4 ID INDUSTRIAL SECURITY ANALYST M-F, 7-3; or the Attending at the phone numbers in care team with any questions or concerns. After hours, please contact the ID fellow consular officer. * Provider Query - Jhonny Kirby MD - 12/11/2023 4:05 PM CDT Specify a diagnosis that reflects the patient???s hemodynamic status, and document in the medical record and on the form below. ___ Hypovolemic shock _x__ Septic Shock ___ Shock, unspecified type ___ Hypotension, no Shock ___ Other explanation of clinical findings, specify below Additional Provider Response: Clinical Indicators/Treatments: 12/08 - BP 80's systolic MAP 40's-50's, HR 110's, Lactate 5.0 63 year old female, hx of IBD (dx in 2022 as UC now more likely Crohn's), HTN, T2DM, adnexal cyst, admitted for weight loss (65lbs in a few months). 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 Managed initially with zosyn and then cipro/flagyl, improvement of microabscesses, has had intermittent episodes of transient bacteremia (fever, leukocytosis, tachycardia), 1x episode while inpatient. 12/08 Progress note - The patient required Critical Care to treat or prevent imminent or life-threatening deterioration of the following medical problems or diagnoses: severe sepsis with rigors, tachycardia to 170s, elevated lactate, hypotension. Required ACT support. 12/08 - LR bolus 1,000 mL x 2, LR bolus 500 mL x1, References: From the ICD-10-CM Coding Guidelines, use of terms such as likely, suspected, possible, or probable(associated with a specific diagnosis that is being evaluated, monitored, or treated as if it exists) are acceptable and can be coded in the inpatient setting when documented at the time of discharge. This documentation will become part of the patient???s medical record. Thank you, Estella Earl RN, BSN, CDI Email: [email or web address] Clinical Documentation [employer] Transplanter * Plan of Care - Gillian Gilbert RN - 12/11/2023 3:23 PM CDT CM Progression of Care Update Per Medical Chart/Rounds/IDR: Patient is not medically ready ADD: tentative surgery date of 12/23, and patient will remain inpatient until that date Discharge Barriers: none at this time Patient's Identified Problem/Goal Problem:?Ensure acute medical needs are met and that patient has a safe discharge plan. Goal:?Secure a discharge plan that patient/family are agreeable with?and ensure patient has continuum of care. Patient and/or family are agreeable with plan. workers compensation manager will continue to follow and assist with discharge planning as needed. If any further discharge needs arise, please contact the covering embedded case manager. * Consults, Subsequent - Fernando Dooley MD - 12/11/2023 10:50 AM CDT Private GI Subsequent Consult Subjective Chief complaint of FTT, contained sigmoid perf Interval History: - WBC down. Has been doing well since last evaluated Objective Physical Exam: Vitals: 24hr Min/Max: Temp Min: 36.3 ??C (97.3 ??F) Max: 36.7 ??C (98.1 ??F) Pulse Min: 90 Max: 101 BP Min: 118/56 Max: 138/66 Resp Min: 18 Max: 18 SpO2 Min: 95 % Max: 100 % Most Recent : Vitals: 12/11/23 0817 BP: 123/66 Pulse: 90 Resp: 18 Temp: 36.7 ??C (98.1 ??F) SpO2: 100% Physical exam: Constitutional: NAD. In bed. Eyes: EOMI grossly intact. Anicteric ENT: NCAT. moist mucus membranes. Lungs: Breathing comfortably on RA. Unlabored. Trachea midline. Cardiovascular: RRR, normal S1 and S2. GI: Soft, NT, ND Skin: No new rashes, lesions or bruises Extremities: Normal without edema or cyanosis Neuro: Alert. MAEW. Assessment/Plan Principal Problem: Physical deconditioning Active Problems: Splenic abscess Pulmonary nodule Hepatic abscess Severe malnutrition (CMS/HCC) Consolidation of left upper lobe of lung (CMS/HCC) (HCC) Fever Darius Russo is a 63 y.o. female with PMH HTN, T2DM, s/p cholecystectomy, a large adnexal mass c/f malignancy, and suspected crohn???s colitis who presents for contained sigmoid perf and FTT. 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 She was admitted with the plan to initiate IFX, however she had new symptoms of a cough and CT showing cavitary pulmonary nodules as well as increased pericolonic fluid collection. Both of these findings pose significant barriers to initiating abx. While mycobacterial/fungal infection causing thesecavitary lesions in the lung are still possible, their interval improvement without directed therapy is reassuring. Progressive worsening of her sigmoid phlegmon this admission however still poses a contraindication to IFX initiation. Additionally, she has had 2 episodes of fevers, chills, diaphoresis, hypotension and tachycardia which are presumably 2/2 translocation form her worsening sigmoid perf/fluid collection. Recommendations: - Appreciate CRS/Business Office Representative Onc consults. Discussing with them if recurrent SIRS 2/2 colonic fluid collection would influence more urgent surgical intervention - abx per primary/ID - Cont optimization of nutritional status. TPN not viable given intraabdominal fluid collection with mircroabscesses and possible infectious process involving lungs - Not a candidate for IBD medical therapy pending surgical intervention We will continue to follow-up with you. Thank you for involving us in the care of this patient. If you have any questions, please call the private GI pager during weekdays or the [employer] phone during after hours and weekends. Fernando Dooley MD GI Fellow * Plan of Care - Krupa Cohen RN - 12/11/2023 7:43 AM CDT Problem: Discharge Planning Goal: Understanding discharge needs will improve Outcome: Progressing Problem: Fall Risk Goal: Ability to state ways to decrease the risk of falls will improve Outcome: Progressing Goal: Will remain free from falls Outcome: Progressing Goal: Will remain free from injury from falls Outcome: Progressing Problem: Skin Integrity Impairment Risk Goal: Mobility will improve Outcome: Progressing Goal: Understanding of ways to prevent future skin breakdown will improve Outcome: Progressing Goal: Nutritional status will improve Outcome: Progressing Goal: Risk for impaired skin integrity will decrease Outcome: Progressing Problem: Neurosensory Goal: Achieves maximal functionality and self care Outcome: Progressing Problem: Musculoskeletal Goal: Return mobility to safest level of function Outcome: Progressing Goal: Maintain proper alignment of affected body part Outcome: Progressing Goal: Return ADL status to a safe level of function Outcome: Progressing Goal: Ability to perform activities at highest level will improve Outcome: Progressing Goal: Mobility, ROM and muscle strength will improve Outcome: Progressing Goals: Clinical Goals for the Shift: Monitor labs and vitals, provide safety and comfort Summary: * Medical Student - Amanda Westfall - 12/11/2023 7:34 AM CDT Medicine Daily Progress Note Chief complaint: failure to thrive iso IBD with contained microperf Interval History: Overnight: NAEON. VSS. Yesterday transitioned ertapenem to cipro/flagyl Overnight repleted KCl 20 mEq po and Mg 2g IV, 2100 Hgb 7, rechecked at 7.2 K and mag repleted overnight Objective Vital Signs: 24hr Min/Max: Temp Min: 36.3 ??C (97.3 ??F) Max: 36.6 ??C (97.9 ??F) Pulse Min: 90 Max: 101 BP Min: 118/56 Max: 138/66 Resp Min: 18 Max: 18 SpO2 Min: 95 % Max: 96 % Intake/Output: Intake/Output Summary (Last 24 hours) at 12/11/2023 0735 Last data filed at 12/10/2023 1830 Gross per 24 hour Intake 525 ml Output -- Net 525 ml Physical Exam: General appearance: no acute distress HEENT: NCAT, MMM, anicteric. Throat pink, without erythema. Tonsils not enlarged, no exudates. Lungs: decreased breath sounds on the left, no w/r/r, non-labored Heart: RRR, S1, S2 normal, no murmur, rub or gallop. JVP not elevated, no LE edema. Abdomen: soft, abdomen full, not tympanitic to percussion, bowel sounds normal. Stable LLQ pain to palpation. Extremities: extremities normal, warm and well-perfused, equal pulses. No mottling. Pedal pulses palpable. Skin: warm and dry Neurologic: No abnormal movements, non-focal exam Current Medications: Current Facility-Administered Medications: acetaminophen (TYLENOL) tablet 1,000 mg, 1,000 mg, oral, Q6H PRN al & mag hydroxide lfvilikdcub-qthfofxbbenpxkp-binesmsbc-nystatin (MAGIC MOUTHWASH) oral suspension 1-1-1-1 15 mL, 15 mL, swish & spit, Q8H PRN, 15 mL at 12/07/23 1719 benzocaine-menthoL (CHLORASEPTIC) lozenge 1 lozenge, 1 lozenge, mouth/throat, Q2H PRN, 1 lozenge at1 0000 benzonatate (TESSALON) capsule 100 mg, 100 mg, oral, TID PRN, 100 mg at 12/10/232002 ciprofloxacin (CIPRO) tablet 500 mg, 500 mg, oral, BID - special, 500 mg at 12/11/23 0522 dextrose gel in packet 15 g, 15 g, oral, Q15 Min PRN OR dextrose (D10W) 10% bolus 250 mL, 250 mL, intravenous, Q15 Min PRN enoxaparin (LOVENOX) syringe 40 mg, 40 mg, subcutaneous, Daily-2100, 40 mg at 12/10/232002 folic acid (FOLVITE) tablet 1 mg, 1 mg, oral, Daily, 1 mg at 12/10/23 0804 glucagon injection 1 mg, 1 mg, intramuscular, Q30 Min PRN guaiFENesin ER (MUCINEX) extended release tablet 1,200 mg, 1,200 mg, oral, BID PRN, 1,200 mg at 12/07/232103 insulin lispro (HumaLOG, ADMELOG) 100 unit/mL injection 0-10 Units, 0-10 Units, subcutaneous, TID with meals, 2 Units at 12/10/23 123 insulin lispro (HumaLOG, ADMELOG) 100 unit/mL injection 0-5 Units, 0-5 Units, subcutaneous, Nightly, 2 Units at 12/10/232100 [Held by Provider] losartan (COZAAR) tablet 25 mg, 25 mg, oral, Daily, 25 mg at 12/09/23 09 metroNIDAZOLE (FLAGYL) tablet 500 mg, 500 mg, oral, BID, 500 mg at 12/10/232002 multivitamin with folic acid 400 mcg tablet 1 tablet, 1 tablet, oral, Daily, 1 tablet at 12/10/23 0804 ondansetron (ZOFRAN) injection 4 mg, 4 mg, intravenous, Q4H PRN, 4 mg at 12/09/[address] (PROTONIX) extended release tablet 40 mg, 40 mg, oral, Daily, 40 mg at 12/10/23 08 phenoL (CHLORASEPTIC) 1.4 % oral spray 1 spray, 1 spray, mouth/throat, Q4H PRN, 1 spray at polyethylene glycol (MIRALAX) packet 17 g, 17 g, oral, Daily PRN ramelteon (ROZEREM) tablet 8 mg, 8 mg, oral, Nightly PRN thiamine (VITAMIN B1) tablet 100 mg, 100 mg, oral, Daily, 100 mg at 12/10/23 0804 Lab/Radiology/Diagnostic Review: Recent Labs Lab Units 12/11/23 0314 12/11/23 0010 12/09/23 2302 12/09/23 1227 12/08/23 2030 12/07/23 2116 HEMOGLOBIN g/dL 7.2* 7.0* 7.3* 9.1* 8.4* 7.8* HEMATOCRIT % 23.9* 23.7* 24.2* 31.0* 27.6* 26.1* WBC K/cumm -- 10.2* 17.9* 16.5* 10.0* 9.7 PLATELETS K/cumm -- 424* 413* 516* 483* 487* Recent Labs Lab Units 12/11/23 0010 12/09/23 2302 12/09/23 1227 12/08/23 2030 12/07/23 2116 12/06/23 2147 SODIUM mmol/L 138 < > 136 137 136 136 POTASSIUM PLASMA mmol/L 3.9 < > See Comment 4.4 4.4 4.0 CHLORIDE mmol/L 105 < > 102 104 102 104 CO2 mmol/L 26 < > 24 26 25 24 ANIONGAP mmol/L 7 < > 10 7 9 8 BUN SERUM mg/dL 13 < > 11 13 14 11 CREATININE mg/dL 0.86 < > 0.73 0.80 0.82 0.82 CALCIUM mg/dL 8.4* < > 8.8 8.7 8.3* 8.2* MAGNESIUM mg/dL 1.8 -- 2.0 2.1 2.3 1.9 < > = values in this interval not displayed. Recent Labs Lab Units 12/11/23 0010 12/04/23 1758 12/04/23 1724 ALBUMIN g/dL 2.1* < > 2.5* ALK PHOS Units/L -- -- 82 AST Units/L -- -- 22 ALT Units/L -- -- 8 BILIRUBIN TOTAL mg/dL -- -- 0.3 < > = values in this interval not displayed. BCx 12/03: No growth BCx 12/08: NGTD Assessment/Plan Ms. Russo is a 63 y.o. female with presents with failure to thrive, IBD with contained sigmoid microperf, adnexal mass, new cavitating pulmonary lesions admitted for coordination of care. Darius Russo has a complex constellation of symptoms without a clear unifying etiology at this point in time. Her weight loss and lung nodules in the setting of adnexal mass is concerning for ovarian malignancy, but secondary school registrar/onc evaluation of adnexal mass gives a low index of suspicion for primary ovarian malignancy, and biopsy of lung tissue was not suggestive of malignancy. Weight loss may be secondary to mass effect from ovarian cyst, complicated by malabsorption secondary to IBD. Liver and spleen abscesses may suggest bacterial translocation in the setting of Crohn's disease flare, with subsequent seeding of lung. Although infectious workup of lungs has been negative, patient had been on ant ibiotics for several weeks before those samples were taken, so our findings on imaging may represent an improving process. 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 Symptoms well controlled on mesalamine until early this summer, with onset of 5+ daily nonbloody diarrhea, fecal incontinence, 65 lb weight loss, poor appetite, early satiety. Imaging with perforated sigmoid diverticulitis, has previously been managed conservatively. Outpatient was treated with mesalamine suppositories at home, follows with Dr. Jung. CT CAP 11/25 with worsening contained perf. PET CT 12/03 with slight interval increase in size of phlegmon. - Antibiotic history: zosyn (10/02-10/03, 11/03-11/05), bactrim (10/04-11/03), flagyl (10/04-11/03), augmentin (10/04-11/03), cipro (11/06-12/03), flagyl (11/06-12/03) vanc (12/03-12/05), zosyn (12/03-12/05), cipro (12/05-12/08), flagyl (12/05-12/08). Ertapenem (12/08-12/09). Cipro (12/09-), flagyl (12/09-) - GI consult: patient not a candidate for infliximab at this time given active infection with liverand spleen microabscesses, sigmoid phlegmon, and suspected lung infection. She is likely as medically optimized for surgery as is reasonable. - Colorectal surgery consult: TAC with concurrent secondary school registrar/onc resection of adnexal mass on 12/23 - IPAP recs: - DOS T&S and H&H # Tachyarrhythmia # Demand ischemia # Sepsis # bacterial translocation iso IBD On 12/03 episode of sudden onset rigors, tachyarrythmia and hypertension resolved with metoprolol, followed by nausea/emesis and several hours of fever, hypotension which responded well to IV fluids and broadened abx to vanc/zosyn x 2 days. Following tachyarrhythmia troponins were elevated, EKG reassuring against NC so suspect demand ischemia. Similar episode on 12/08 with sudden onset rigors, narrow complex tachycardia to 160s, hypertensionwhich responded well to 2x2.5 metoprolol. Now nausea, bilious emesis, febrile to 102.7, hypotensionwith MAP 60s, tachycardia to 130. POC lactate 4.9. Bolused 2L LR. Suspect a similar etiology of transient bacteremia secondary to bacterial translocation. - Cipro (12/09-), flagyl (12/09-) - CBC, CMP, Bcx pending - replete for K>4, Mg>2 - Given that patient has had multiple episodes with significant tachyarrhythmia and sepsis it is likely that she will remain inpatient until we can obtain source control. # Pulmonary nodules # Pleural effusion CT 11/25 with cavitating L upper lobe nodules, interlobular septal line thickening, regional lymphadenopathy, L pleural effusion and pleural thickening. Asymptomatic aside from cough x 1 week prior toadmission. No history of immunomodulatory treatment. Low suspicion for malignancy given that recent imaging in September shows no lung nodules. BAL 11/27. Workup for bacterial, mycobacterial, fungal, and viral etiologies has been negative thus far. Surgical pathology and cytology results revealing of organizing lung injury with a broad possible differential, but no evidence of malignancy or opportunistic infection. - Pulmonology c/s: signed off. - ID consult: sending broad PCR and sequencing from lung biopsies. Rec initiating ANCA vasulitis work up, which is pending. - Continue tessalon pearls TID PRN for cough # Liver and spleen microabscesses Noted on recent imaging. Recent balaji in August, per op note GB was full of stones and difficult to grasp but low suspicion for retained gallstone as nothing seen on imaging and microabscesses are intraparenchymal. During October admission IR consulted, abscesses too small to drain. Improved on 11/25 CT. Likely 2/2 bacterial translocation iso IBD flare. - abx as above # Adnexal mass Large multiseptated O RADS 3 lesion, likely arising from the right ovary found incidentally on imaging in August. Following with secondary school registrar onc, Dr. Rhodes. 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 - Considering colectomy with CRS so will also consult secondary school registrar/onc for consideration of concurrent cyst removal. # Severe Chronic Malnutrition 65 lb weight loss since July. Meets ASPEN criteria for severe chronic malnutrition. PO intake improved throughout admission. 2 lb weight loss from 11/24 admit to 12/03. - nutrition consult - Thiamine 500 IV x 3 loading then 100 mg daily - daily folic acid - daily multivitamin - daily B6 100 mg x 5 days (completed) # Normocytic anemia # Secondary hemochromatosis Iron deposition in liver noted incidentally on recent imaging. Elevated ferritin to 1868 iso acute inflammatory process. History of 3 lifetime blood transfusions and several recent iron infusions foranemia. However, given that anemia has been normocytic and patient has been chronically ill for several months, favor anemia of chronic disease over iron deficiency as etiology. - nutritional optimization, avoid further iron supplementation if possible - q3 day T&S, hgb >7. Consented. # T2DM A1C in October was 5.7. Managed on metformin 500 q24. - SSI # HTN -losartan 25 (cont home med) Code - Full Diet - Carb consistent DVT prophylaxis - subq lovenox, SCDs. Note that patient is at increased risk of VTE 2/2 IBD. Dispo - Pending surgical plan. Cosigned by Álvaro Radford MD at 12/11/2023 2:51 PM CDT * Plan of Care - Samy Lyn - 12/10/2023 7:47 PM CDT Problem: Discharge Planning Goal: Understanding discharge needs will improve Outcome: Progressing Flowsheets (Taken 12/10/20231939) Understanding of discharge needs will improve: Discuss information regarding discharge instructions Identify discharge barriers Identify discharge learning needs (meds, wound care, etc.) Problem: Fall Risk Goal: Ability to state ways to decrease the risk of falls will improve Outcome: Progressing Flowsheets (Taken 12/10/20231939) Ability to state ways to decrease the risk of falls will improve: Teach fall prevention measures Teach information regarding appropriate enviornmental changes Goal: Will remain free from falls Outcome: Progressing Flowsheets (Taken 12/10/20231939) Will remain free from falls: Assess risk factors for falls Implement fall prevention measures Goal: Will remain free from injury from falls Outcome: Progressing Flowsheets (Taken 12/10/20231939) Will remain free from injury from falls: Provide safe environment for conduction of activities of daily living in hospital environment Problem: Lack of Knowledge Goal: Ability to describe self care measures that may prevent or decrease complications related to Type 2 Diabetes will improve Outcome: Progressing Flowsheets (Taken 12/10/20231939) Ability to describe self care measures that may prevent or decrease complications related to Type 2Diabetes will improve: Teach signs and symptoms of hyperglycemia Teach risks of complications of diabetes Teach signs and symptoms of hypoglycemia Teach blood glucose measurement Problem: Health Nutrition Goal: Nutritional intake and knowledge related to Diabetes will improve Outcome: Progressing Flowsheets (Taken 12/10/20231939) Nutritional intake and knowledge related to Diabetes will improve: Collaborate with admissions dean for diabetes evaluation and/or teaching Problem: Neurosensory Goal: Achieves maximal functionality and self care Outcome: Progressing Flowsheets (Taken 12/10/20231939) Achieves maximal functionality and self care: Monitor swallowing and airway patency with patient fatigue and changes in neurological status Problem: Musculoskeletal Goal: Return mobility to safest level of function Outcome: Progressing Flowsheets (Taken 12/10/20231939) Return mobility to safest level of function: Assess patient stability and activity tolerance for standing, transferring and ambulating with or without assistive devices Goal: Maintain proper alignment of affected body part Outcome: Progressing Goal: Return ADL status to a safe level of function Outcome: Progressing Flowsheets (Taken 12/10/20231939) Return activities of daily living status to a safe level of function: Assess patient's activities of daily living deficits and provide assistive devices as needed Goal: Ability to perform activities at highest level will improve Outcome: Progressing Goal: Mobility, ROM and muscle strength will improve Outcome: Progressing Problem: Gastrointestinal Goal: Minimal or absence of nausea and vomiting Outcome: Progressing Flowsheets (Taken 12/10/20231939) Minimal or absence of nausea and vomiting: Monitor intake and output Provide a clean room free from unpleasant odors Goal: Maintains or returns to baseline bowel function Outcome: Progressing Flowsheets (Taken 12/10/20231939) Maintains or returns to baseline bowel function: Encourage oral fluids to ensure adequate hydration Administer ordered medications as needed Nutrition consult to assist patient with appropriate food choices Monitor amount, characteristics and/or frequency of stool Administer IV fluids as ordered to ensure adequate hydration Goal: Maintains adequate nutritional intake Outcome: Progressing Flowsheets (Taken 12/10/20231939) Maintains adequate nutritional intake: Monitor I&O, weight and lab values Problem: Metabolic/Fluid and Electrolytes Goal: Electrolytes maintained within normal limits Outcome: Progressing Flowsheets (Taken 12/10/20231939) Electrolytes maintained within normal limits: Monitor labs and assess patient for signs and symptoms of electrolyte imbalances Administer electrolyte replacement as ordered Monitor response to electrolyte replacements, including repeat lab results as appropriate Goal: Glucose maintained within prescribed range Outcome: Progressing Flowsheets (Taken 12/10/20231939) Glucose maintained within prescribed range: Assess for signs and symptoms of hyperglycemia and hypoglycemia, monitor glucose as ordered Problem: Lack of Knowledge Goal: Ability to develop a pain control plan will improve Outcome: Progressing Problem: Medication Goal: Satisfaction with pain management medication regimen will improve Outcome: Progressing Flowsheets (Taken 12/10/20231939) Satisfaction with pain management medication regimen will improve: Assess satisfaction with pain management regimen Evaluate medication effects Manage analgesics Problem: Sensory Goal: Ability to identify factors that increase pain levels will improve while working to decrease the patient's pain levels Outcome: Progressing Flowsheets (Taken 12/10/20231939) Ability to identify factors that increase pain levels will improve while working to decrease patients pain levels: Assess pain status Problem: Coping Goal: Ability to cope will improve Outcome: Progressing Flowsheets (Taken 12/10/20231939) Ability to cope will Improve: Provide emotional support Encourage vebalization of feelings surrounding pain Problem: Health Behavior Goal: Identification of resources available to assist in meeting health care needs will improve Outcome: Progressing Problem: Respiratory Goal: Achieves optimal ventilation and oxygenation Outcome: Progressing Flowsheets (Taken 12/10/20231939) Achieves optimal ventilation and oxygenation: Assess for changes in respiratory status Perform cluster care Goal: Ability to maintain a clear airway will improve Outcome: Progressing Problem: Skin/Tissue Integrity Goal: Incisions, wounds, or drain sites healing without S/S of infection Outcome: Progressing Flowsheets (Taken 12/10/20231939) Incision(s), Wound(s) or Drain Site(s) healing without S/S of infection: Assess and document risk factors for pressure injury development Assess and document skin integrity Problem: Infection Goal: Absence of infection during hospitalization Outcome: Progressing Flowsheets (Taken 12/10/20231939) Absence of infection during hospitalization: Assess and monitor for signs and symptoms of infection Monitor lab/diagnostic results Administer medications as ordered Problem: Isolation Lack of Knowledge Goal: Knowledge of risk factors and measures for prevention of condition will improve Outcome: Progressing Flowsheets (Taken 12/10/20231939) Knowledge of risk factors and measures for prevention of condition will improve: Discuss good hand hygiene Discuss infection prevention measures Teach significant others hand washing technique Problem: Isolation Physical Regulation Goal: Isolation- Spread of further infection will be prevented Outcome: Progressing Flowsheets (Taken 12/10/20231939) Spread of further infection will be prevented: Use standard precautions Goal: Isolation- Complications related to the disease process, condition, or treatment will be avoided or minimized. Outcome: Progressing Problem: Hematologic Goal: Maintains hematologic stability Outcome: Progressing Flowsheets (Taken 12/10/20231939) Maintains Hematologic Stability: Assess for signs and symptoms of bleeding or hemorrhage Monitor labs Problem: Skin Integrity Impairment Risk Goal: Mobility will improve Outcome: Progressing Flowsheets (Taken 12/10/20231939) Mobility will improve: Assess circulation, sensation and/or motion of extremity Encourage turning and repositioning, assist as needed Goal: Understanding of ways to prevent future skin breakdown will improve Outcome: Progressing Flowsheets (Taken 12/10/20231939) Understanding of ways to prevent future skin breakdown will improve: Discuss treatments to protect skin integrity Goal: Nutritional status will improve Outcome: Progressing Flowsheets (Taken 12/10/20231939) Nutritional status will improve: Assess nutritional status Monitor intake and output Encourage fluid intake Encourage nutritional intake Goal: Risk for impaired skin integrity will decrease Outcome: Progressing Flowsheets (Taken 12/10/20231939) Risk for impaired skin integrity will decrease: Identify risk factors for impaired skin integrity and/or pressure injuries Implement precautions to protect skin integrity Perform cleansing of skin when soiled Monitor skin integrity, appearance and temperature Provide pressure-redistribution bed, mattress and/or chair cushion Problem: Genitourinary Goal: Absence of urinary retention Outcome: Progressing Problem: Cardiovascular Goal: Maintains optimal cardiac output and hemodynamic stability Outcome: Progressing Flowsheets (Taken 12/10/20231939) Maintain optimal cardiac output and hemodynamic Stability: Monitor vital signs, rhythm, and trends Assess quality of pulses, skin color and temperature Monitor for bleeding, hypotension and signs of decreased cardiac output Goals: Clinical Goals for the Shift: Monitor labs and vitals, provide safety and comfort Summary: * Plan of Care - Dariana Cramer RN - 12/10/2023 12:43 PM CDT 12/10/23 6374 Discharge Planning Support System Spouse/Significant Other;Family members (Jean Claude/spouse [phone]) Anticipated discharge level of care Private residence Does the patient need discharge transport arranged? No (Jean Claude/spouse [phone]) Discharge Transportation Communication Mode of transport has been discussed with the patient/family. All are agreeable to the plan and understand their responsibilities to ensure the safe transfer. No further CM/SW intervention is anticipated at this time. Post Acute Care Plan Home Care Services N/A OP Services N/A DME N/A Post Acute Care Facility N/A CM Progression of Care Update Per Medical Chart/Rounds/IDR: Patient is not medically ready for discharge ADD: 12-15 Discharge Barriers: No anticipated discharge barrier Education Needs Identified (plan): Pending CRS Surgical plans. Pending Business Office Representative Onc c/s. Monitor nutritional status No anticipated discharge home needs F/U Appointments: Pending Patient's Identified Problem/Goal Problem:?Ensure acute medical needs are met and that patient has a safe discharge plan. Goal:?Secure a discharge plan that patient/family are agreeable with?and ensure patient has continuum of care. Patient and/or family are agreeable with plan. workers compensation manager will continue to follow and assist with discharge planning as needed. If any further discharge needs arise, please contact the covering embedded case manager. Dariana Cramer RN,BSN,CM * Plan of Care - Krupa Cohen RN - 12/10/2023 10:53 AM CDT Problem: Fall Risk Goal: Ability to state ways to decrease the risk of falls will improve Outcome: Progressing Goal: Will remain free from falls Outcome: Progressing Goal: Will remain free from injury from falls Outcome: Progressing Problem: Skin Integrity Impairment Risk Goal: Mobility will improve Outcome: Progressing Goal: Understanding of ways to prevent future skin breakdown will improve Outcome: Progressing Goal: Nutritional status will improve Outcome: Progressing Goal: Risk for impaired skin integrity will decrease Outcome: Progressing Problem: Musculoskeletal Goal: Return mobility to safest level of function Outcome: Progressing Goal: Maintain proper alignment of affected body part Outcome: Progressing Goal: Return ADL status to a safe level of function Outcome: Progressing Goal: Ability to perform activities at highest level will improve Outcome: Progressing Goal: Mobility, ROM and muscle strength will improve Outcome: Progressing Problem: Neurosensory Goal: Achieves maximal functionality and self care Outcome: Progressing Problem: Skin/Tissue Integrity Goal: Incisions, wounds, or drain sites healing without S/S of infection Outcome: Progressing Problem: Respiratory Goal: Achieves optimal ventilation and oxygenation Outcome: Progressing Goal: Ability to maintain a clear airway will improve Outcome: Progressing Problem: Infection Goal: Absence of infection during hospitalization Outcome: Progressing Problem: Hematologic Goal: Maintains hematologic stability Outcome: Progressing Goals: Clinical Goals for the Shift: Monitor labs and vitals, provide safety and comfort Summary: * Consults, Subsequent - Fernando Dooley MD - 12/10/2023 10:10 AM CDT Private GI Subsequent Consult Subjective Chief complaint of FTT, contained sigmoid perf Interval History: - Recurrent episode of diaphoresis, tachycardia, fever, hypotension yeseterday. Abx broadened. Blood Cx pending - Feels well this morning Objective Physical Exam: Vitals: 24hr Min/Max: Temp Min: 36.4 ??C (97.5 ??F) Max: 39.3 ??C (102.7 ??F) Pulse Min: 89 Max: 173 BP Min: 81/49 Max: 192/132 Resp Min: 18 Max: 18 SpO2 Min: 86 % Max: 100 % Most Recent : Vitals: 12/10/23 0734 BP: 105/60 Pulse: 89 Resp: 18 Temp: 36.5 ??C (97.7 ??F) SpO2: 97% Physical exam: Constitutional: NAD. In bed. Eyes: EOMI grossly intact. Anicteric ENT: NCAT. moist mucus membranes. Lungs: Breathing comfortably on RA. Unlabored. Trachea midline. Cardiovascular: RRR, normal S1 and S2. GI: Soft, NT, ND Skin: No new rashes, lesions or bruises Extremities: Normal without edema or cyanosis Neuro: Alert. MAEW. Assessment/Plan Principal Problem: Physical deconditioning Active Problems: Splenic abscess Pulmonary nodule Hepatic abscess Severe malnutrition (CMS/HCC) Consolidation of left upper lobe of lung (CMS/HCC) (HCC) Fever Darius Russo is a 63 y.o. female with PMH HTN, T2DM, s/p cholecystectomy, a large adnexal mass c/f malignancy, and suspected crohn???s colitis who presents for contained sigmoid perf and FTT. 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 She was admitted with the plan to initiate IFX, however she had new symptoms of a cough and CT showing cavitary pulmonary nodules as well as increased pericolonic fluid collection. Both of these findings pose significant barriers to initiating abx. While mycobacterial/fungal infection causing thesecavitary lesions in the lung are still possible, their interval improvement without directed therapy is reassuring. Progressive worsening of her sigmoid phlegmon this admission however still poses a contraindication to IFX initiation. Additionally, she has had 2 episodes of fevers, chills, diaphoresis, hypotension and tachycardia which are presumably 2/2 translocation form her worsening sigmoid perf/fluid collection. Recommendations: - Appreciate CRS/Business Office Representative Onc consults. Discussing with them if recurrent SIRS 2/2 colonic fluid collection would influence more urgent surgical intervention - abx per primary/ID - Cont optimization of nutritional status. TPN not viable given intraabdominal fluid collection with mircroabscesses and possible infectious process involving lungs - Not a candidate for IBD medical therapy pending surgical intervention We will continue to follow-up with you. Thank you for involving us in the care of this patient. If you have any questions, please call the private GI pager during weekdays or the [facility] phone during after hours and weekends. Fernando Dooley MD GI Fellow * Plan of Care - Samy Lyn - 12/09/2023 11:10 PM CDT Problem: Discharge Planning Goal: Understanding discharge needs will improve Outcome: Progressing Flowsheets (Taken 12/09/2023 8374) Understanding of discharge needs will improve: Discuss information regarding discharge instructions Identify discharge barriers Identify discharge learning needs (meds, wound care, etc.) Problem: Fall Risk Goal: Ability to state ways to decrease the risk of falls will improve Outcome: Progressing Flowsheets (Taken 12/09/20232303) Ability to state ways to decrease the risk of falls will improve: Teach fall prevention measures Teach information regarding appropriate enviornmental changes Goal: Will remain free from falls Outcome: Progressing Flowsheets (Taken 12/09/20232303) Will remain free from falls: Assess risk factors for falls Implement fall prevention measures Goal: Will remain free from injury from falls Outcome: Progressing Flowsheets (Taken 12/09/20232303) Will remain free from injury from falls: Provide safe environment for conduction of activities of daily living in hospital environment Problem: Lack of Knowledge Goal: Ability to describe self care measures that may prevent or decrease complications related to Type 2 Diabetes will improve Outcome: Progressing Flowsheets (Taken 12/09/20232303) Ability to describe self care measures that may prevent or decrease complications related to Type 2Diabetes will improve: Teach signs and symptoms of hyperglycemia Teach signs and symptoms of hypoglycemia Teach blood glucose measurement Problem: Health Nutrition Goal: Nutritional intake and knowledge related to Diabetes will improve Outcome: Progressing Problem: Neurosensory Goal: Achieves maximal functionality and self care Outcome: Progressing Flowsheets (Taken 12/09/20232303) Achieves maximal functionality and self care: Monitor swallowing and airway patency with patient fatigue and changes in neurological status Problem: Musculoskeletal Goal: Return mobility to safest level of function Outcome: Progressing Flowsheets (Taken 12/09/20232303) Return mobility to safest level of function: Assess patient stability and activity tolerance for standing, transferring and ambulating with or without assistive devices Goal: Maintain proper alignment of affected body part Outcome: Progressing Goal: Return ADL status to a safe level of function Outcome: Progressing Flowsheets (Taken 12/09/20232303) Return activities of daily living status to a safe level of function: Assess patient's activities of daily living deficits and provide assistive devices as needed Goal: Ability to perform activities at highest level will improve Outcome: Progressing Goal: Mobility, ROM and muscle strength will improve Outcome: Progressing Problem: Gastrointestinal Goal: Minimal or absence of nausea and vomiting Outcome: Progressing Flowsheets (Taken 12/09/20232303) Minimal or absence of nausea and vomiting: Monitor intake and output Provide a clean room free from unpleasant odors Provide fluid volume management Goal: Maintains or returns to baseline bowel function Outcome: Progressing Flowsheets (Taken 12/09/20232303) Maintains or returns to baseline bowel function: Encourage oral fluids to ensure adequate hydration Administer ordered medications as needed Goal: Maintains adequate nutritional intake Outcome: Progressing Flowsheets (Taken 12/09/20232303) Maintains adequate nutritional intake: Monitor I&O, weight and lab values Problem: Metabolic/Fluid and Electrolytes Goal: Electrolytes maintained within normal limits Outcome: Progressing Flowsheets (Taken 12/09/20232303) Electrolytes maintained within normal limits: Monitor labs and assess patient for signs and symptoms of electrolyte imbalances Monitor response to electrolyte replacements, including repeat lab results as appropriate Administer electrolyte replacement as ordered Provide fluid volume management Goal: Glucose maintained within prescribed range Outcome: Progressing Flowsheets (Taken 12/09/20232303) Glucose maintained within prescribed range: Assess for signs and symptoms of hyperglycemia and hypoglycemia, monitor glucose as ordered Administer ordered medications to maintain glucose within target range Problem: Lack of Knowledge Goal: Ability to develop a pain control plan will improve Outcome: Progressing Problem: Medication Goal: Satisfaction with pain management medication regimen will improve Outcome: Progressing Problem: Sensory Goal: Ability to identify factors that increase pain levels will improve while working to decrease the patient's pain levels Outcome: Progressing Flowsheets (Taken 12/09/20232303) Ability to identify factors that increase pain levels will improve while working to decrease patients pain levels: Assess pain status Problem: Coping Goal: Ability to cope will improve Outcome: Progressing Flowsheets (Taken 12/09/20232303) Ability to cope will Improve: Provide emotional support Problem: Health Behavior Goal: Identification of resources available to assist in meeting health care needs will improve Outcome: Progressing Problem: Respiratory Goal: Achieves optimal ventilation and oxygenation Outcome: Progressing Flowsheets (Taken 12/09/20232303) Achieves optimal ventilation and oxygenation: Assess for changes in respiratory status Assess for changes in mentation and behavior Perform cluster care Goal: Ability to maintain a clear airway will improve Outcome: Progressing Problem: Skin/Tissue Integrity Goal: Incisions, wounds, or drain sites healing without S/S of infection Outcome: Progressing Problem: Infection Goal: Absence of infection during hospitalization Outcome: Progressing Flowsheets (Taken 12/09/20232303) Absence of infection during hospitalization: Assess and monitor for signs and symptoms of infection Problem: Isolation Lack of Knowledge Goal: Knowledge of risk factors and measures for prevention of condition will improve Outcome: Progressing Flowsheets (Taken 12/09/20232303) Knowledge of risk factors and measures for prevention of condition will improve: Discuss good hand hygiene Discuss infection prevention measures Teach significant others hand washing technique Problem: Isolation Physical Regulation Goal: Isolation- Spread of further infection will be prevented Outcome: Progressing Flowsheets (Taken 12/09/20232303) Spread of further infection will be prevented: Use standard precautions Administer medications Goal: Isolation- Complications related to the disease process, condition, or treatment will be avoided or minimized. Outcome: Progressing Flowsheets (Taken 12/09/20232303) Complications related to the disease process, condition, or treatment will be avoided or minimized: Provide emotional support Implement safety precautions Problem: Hematologic Goal: Maintains hematologic stability Outcome: Progressing Flowsheets (Taken 12/09/20232303) Maintains Hematologic Stability: Assess for signs and symptoms of bleeding or hemorrhage Monitor labs Problem: Skin Integrity Impairment Risk Goal: Mobility will improve Outcome: Progressing Flowsheets (Taken 12/09/20232303) Mobility will improve: Encourage turning and repositioning, assist as needed Assess circulation, sensation and/or motion of extremity Goal: Understanding of ways to prevent future skin breakdown will improve Outcome: Progressing Flowsheets (Taken 12/09/20232303) Understanding of ways to prevent future skin breakdown will improve: Discuss treatments to protect skin integrity Goal: Nutritional status will improve Outcome: Progressing Flowsheets (Taken 12/09/20232303) Nutritional status will improve: Assess nutritional status Monitor intake and output Goal: Risk for impaired skin integrity will decrease Outcome: Progressing Flowsheets (Taken 12/09/20232303) Risk for impaired skin integrity will decrease: Identify risk factors for impaired skin integrity and/or pressure injuries Implement precautions to protect skin integrity Monitor skin integrity, appearance and temperature Problem: Genitourinary Goal: Absence of urinary retention Outcome: Progressing Problem: Cardiovascular Goal: Maintains optimal cardiac output and hemodynamic stability Outcome: Progressing Flowsheets (Taken 12/09/20232303) Maintain optimal cardiac output and hemodynamic Stability: Monitor vital signs, rhythm, and trends Assess quality of pulses, skin color and temperature Monitor for bleeding, hypotension and signs of decreased cardiac output Goals: Clinical Goals for the Shift: safety, comfort, VSS, Monitor and treat BG, monitor labs, IV fluids Summary: * Consults, Subsequent - Cara Guy NP - 12/09/2023 12:20 PM CDT Infectious Disease Subsequent Consult Note Infectious Disease Team: General 4 Contact Information: Please see [facility] Treatment Team listing for up-to-date contact information. Subjective Chief complaint of Spleen and liver abscesses, contained perforation, lung nodules with cavitation Interval History: -Patient reports plan is to discharge home today and come back for surgery -infectious pulm workup negative -continue antibiotics through surgery -At time of completing note, patient noted to be febrile to 39.3. Reached out to team regarding temp. Team reports patient had a true fever with rigors and shakes. Patient transitioned to ertapenem and no no plans to d/c today. Workup in progress. Objective Anti-infectives (From admission, onward) Start Dose/Rate Route Frequency Ordered Stop 12/09/23 1300 ertapenem (INVanz) 1,000 mg in sterile water 10 mL (100 mg/mL) IV syringe 1,000 mg 120 mL/hr over 5 Minutes intravenous Every 24 hours scheduled 12/09/23 1215 12/06/23 1223 al & mag hydroxide gbwxsdhfoqu-lmlkugiqkieynzb-mbdswhbqh-nystatin (MAGIC MOUTHWASH) oral suspension 1-1-1-1 15 mL 15 mL swish & spit Every 8 hours PRN 12/06/23 1223 11/26/23 0900 [Held by Provider] metroNIDAZOLE (FLAGYL) tablet 500 mg (On hold since today at 1215 until manually unheld; held by Jhonny Kirby MDHold Reason: Change in Patient Status) 500 mg oral 2 times daily 11/25/23211911/26/23 0600 [Held by Provider] ciprofloxacin (CIPRO) tablet 500 mg (On hold since today at 1215 until manually unheld; held by Jhonny Kirby MDHold Reason: Change in Patient Status) 500 mg oral 2 times daily (for quinolones,etc) 11/25/232119 Vitals: 24hr Min/Max: Temp Min: 36.4 ??C (97.5 ??F) Max: 39.3 ??C (102.7 ??F) Pulse Min: 99 Max: 173 BP Min: 112/62 Max: 192/132 Resp Min: 16 Max: 18 SpO2 Min: 96 % Max: 100 % Most Recent : Vitals: 12/09/23 1310 BP: Pulse: Resp: Temp: (!) 39.3 ??C (102.7 ??F) SpO2: I/O last 2 completed shifts: In: 500 [P.O.:500] Out: - Active LDAs: Peripheral IV 12/07/23 22 G Posterior;Right Wrist (Active) Number of days: 2 Physical Exam: Physical Exam Constitutional: General: She is not in acute distress. HENT: Head: Normocephalic and atraumatic. Nose: Nose normal. Mouth/Throat: Mouth: Mucous membranes are moist. Cardiovascular: Rate and Rhythm: Regular rhythm. Tachycardia present. Pulmonary: Effort: Pulmonary effort is normal. No respiratory distress. Breath sounds: Normal breath sounds. Abdominal: General: Bowel sounds are normal. Tenderness: There is no abdominal tenderness. Musculoskeletal: General: Normal range of motion. Skin: General: Skin is warm and dry. Neurological: General: No focal deficit present. Mental Status: She is alert and oriented to person, place, and time. Mental status is at baseline. Psychiatric: Mood and Affect: Mood normal. Behavior: Behavior normal. Thought Content: Thought content normal. Judgment: Judgment normal. Lab/Radiology/Diagnostic Review: Lab Results Component Value Date MICROBIOLOGY Final Report: No growth 12/04/2023 MICROBIOLOGY Final Report: No growth 12/04/2023 MICROBIOLOGY Preliminary Report: No growth to date. 11/29/2023 MICROBIOLOGY Final Report: Negative 11/28/2023 MICROBIOLOGY 11/28/2023 Preliminary Report: No growth of acid-fast bacilli to date MICROBIOLOGY Preliminary Report: No growth of fungus to date 11/28/2023 MICROBIOLOGY 11/28/2023 Direct Stain Examination - Final: Negative for: Pneumocystis jirovecii MICROBIOLOGY 11/28/2023 Preliminary Report: No growth of acid-fast bacilli to date MICROBIOLOGY Preliminary Report: No growth of fungus to date 11/28/2023 MICROBIOLOGY 11/28/2023 Direct Stain Examination - Final: Negative for: Pneumocystis jirovecii MICROBIOLOGY 11/28/2023 Final Report: Growth indicates upper respiratory noah. MICROBIOLOGY 11/28/2023 Final Report: Growth indicates upper respiratory noah. Radiology results were reviewed. XR Abdomen Ap 1 Vw Result Date: 12/08/2023 A single view of the abdomen is submitted for evaluation. Partially imaged left pleural effusion appears similar in size to previous study. Cholecystectomy clips present. Normal bowel gas pattern. Dictated by: Yareli York MD The radiology attending physician has personally reviewed this study, and had reviewed and/or edited this written report and agrees with it. Electronically signed by: Shin King M.D. XR Abdomen Ap 1 Vw Result Date: 12/08/2023 A single view of the abdomen is submitted for evaluation. Partially imaged left pleural effusion appears similar in size to previous study. Cholecystectomy clips present. Normal bowel gas pattern. Dictated by: Yareli York MD The radiology attending physician has personally reviewed this study, and had reviewed and/or edited this written report and agrees with it. Electronically signed by: Shin King M.D. Assessment/Plan Fever Assessment & Plan At time of completing note, patient noted to be febrile to 39.3. Reached out to team regarding temp. Team reports patient had a true fever with rigors and shakes. Patient transitioned to ertapenem and no no plans to d/c today. Workup in progress. Will follow up on results. Hepatic abscess Assessment & Plan Continue cipro and metronidazole. Pulmonary nodule Assessment & Plan Patient is a 63 y.o. female with a history of hypertension, type 2 diabetes, and inflammatory boweldisease who is [facility] for progressive weight loss and nausea in the setting of multiple admissions for diverticulitis complicated by contained sigmoid perforation, scattered liver and spleen abscesses and adnexal mass. She was admitted to [facility] on 11/24 for further workup and ID [...] processes. Near resolution of hepatic and splenic abs cesses. Cystic R adnexal lesion w/o focus of elevated FDG uptake. Hypermetabolic soft tissue nodulein pelvic peritoneum and within a fat-containing umbilical hernia. Imaging and cultures reviewed. Discussed negative results with patient and spouse. Patient reports plan is to discharge today and come back for surgery. Reviewed plan to continue antibiotics through surgery with the plans for ID to be consulted at the time of surgery to assess antibiotics. In the even patient has procedure and ID is not consulted, and outpatient ID appointment has been set up. Questions answered as needed. Recommendations: - Consider non-infectious etiologies -Will follow up on results. Of note fungal and AFB cultures take several weeks to finalize -Thank you for allowing us to participate in the care of this patient. For questions or concerns, please do not hesitate to reach out. Splenic abscess Assessment & Plan Patient is a 63 y.o. female with a history of hypertension, type 2 diabetes, and inflammatory boweldisease who is [facility] for progressive weight loss and nausea in the setting of multiple admissions for diverticulitis complicated by contained sigmoid perforation, scattered liver and spleen abscesses and adnexal mass. She was admitted to [facility] on 11/24 for further workup and ID [...] sigmoid colon. Improving hepatic and splenic abscesses. Patient has continued on ciprofloxacin and metronidazole. Qtc noted on 11/30 EKG in chart was 454. CRS and TEAR DOWN MATCHER discussing combo case in the near future. Would recommend continuing antibiotics throughsurgery and consulting ID at the time to reassess antibiotic needs. Recommendations. -Continue metronidazole and ciprofloxacin. -Continue antibiotics through surgery. Consult ID at the time of surgery so that we may reassess need for antibiotics -Thank you for allowing us to participate in the care of this patient. For questions or concerns, please do not hesitate to reach out. Today, I am treating the patient for Spleen and liver abscesses, contained perforation, lung nodules with cavitation which can cause fever, pain, leukocytosis, worsening of infection in the short-term future in the absence of appropriate treatment, as described in the note., Reviewed notes by nursing, GI, pulmology, CRS, TEAR DOWN MATCHER and primary team to determine appropriate plan of care as in the note., Estimated Creatinine Clearance: 52.9 mL/min (by C-G 65 yr and older- minimum SCr 0.8 based on SCr of0.73 mg/dL). - reviewed; antibiotics recommended above are dosed accordingly., and The patient is being intensively monitored for antimicrobial toxicity from ertapenem with the following tests: cbc with diff and cmp. Cara Guy, Team 4 Infectious Diseases INDUSTRIAL SECURITY ANALYST Please contact the Team 4 ID INDUSTRIAL SECURITY ANALYST M-F, 7-3; or the Attending at the phone numbers in care team with any questions or concerns. After hours, please contact the ID fellow consular officer. * Medical Student - Amanda Westfall - 12/09/2023 6:23 AM CDT Medicine Daily Progress Note Chief complaint: failure to thrive iso IBD with contained microperf Interval History: Overnight: - NAEON. - Afebrile, borderline tachycardic to 106. - CBC and BMP lateral. - Ear pain and sore throat improving, lozenges have been helpful. - patient feels there has been no change in abdominal fullness, no new nausea or abd pain - ate very well last night - excited to discharge home This morning: - 6 bowel movements early this morning, all formed, no blood, no incontinence. Some lower abdominalcramping following these bowel movements - Around 11:45 patient had sudden onset of rigors with tachycardia to 150s, hypertensive to 150s systolic. Patient pale, anxious. Stat EKG showed narrow complex tachycardia, too much artifact in baseline iso rigors to ascertain whether P waves were present. Started 1L bolus of LR. Administered 2x2.5 mg IV metoprolol with gradual improvement of HR to 120s and resolution of rigors. Devyn CBC, CMP, blood cultures, and POC lactate (4.9). 2x bilious emesis, given IV zofran. Abdominal exam unchanged from earlier this morning: soft, nontender, mildly distended, no new abdominal pain. 1g IV ertapenem administered. - reports that several minutes prior to onset of rigors patient felt cold and requested several blankets. - 1 hour after resolution of tachyarrhythmia patient febrile to 102.7, hypotensive with MAPs to 60s, regular tachycardia to 130, SpO2 89%, rapidly improved to 95% on 2L NC. Had had 1 more episode bilious emesis in the interim. Reporting some abdominal tenderness secondary to emesis, but abdomen soft, exam not peritonitic. Started another 1L bolus LR. Objective Vital Signs: 24hr Min/Max: Temp Min: 36.4 ??C (97.5 ??F) Max: 39.3 ??C (102.7 ??F) Pulse Min: 99 Max: 173 BP Min: 112/62 Max: 192/132 Resp Min: 16 Max: 18 SpO2 Min: 96 % Max: 100 % Intake/Output: 6 formed bowel movements this morning, no blood. Intake/Output Summary (Last 24 hours) at 12/09/2023 1345 Last data filed at 12/08/2023 1920 Gross per 24 hour Intake 500 ml Output -- Net 500 ml Physical Exam: General appearance: no acute distress HEENT: NCAT, MMM, anicteric. Throat pink, without erythema. Tonsils not enlarged, no exudates. Lungs: decreased breath sounds on the left, no w/r/r, non-labored Heart: RRR, S1, S2 normal, no murmur, rub or gallop. JVP not elevated, no LE edema. Abdomen: soft, distended, not tympanitic to percussion, bowel sounds normal. Stable LLQ pain to palpation. Extremities: extremities normal, warm and well-perfused, equal pulses. No mottling. Pedal pulses palpable. Skin: warm and dry Neurologic: No abnormal movements, non-focal exam Current Medications: Current Facility-Administered Medications: acetaminophen (TYLENOL) tablet 650 mg, 650 mg, oral, Q4H PRN, 650 mg at 12/06/23 2138 al & mag hydroxide zeelzaqirbv-jxfwonroavzwyhc-ztfnhqlwu-nystatin (MAGIC MOUTHWASH) oral suspension 1-1-1-1 15 mL, 15 mL, swish & spit, Q8H PRN, 15 mL at 12/07/23 1719 benzocaine-menthoL (CHLORASEPTIC) lozenge 1 lozenge, 1 lozenge, mouth/throat, Q2H PRN, 1 lozenge at1 0000 benzonatate (TESSALON) capsule 100 mg, 100 mg, oral, TID PRN, 100 mg at 12/09/23 1251 Carrier Fluids for Secondary Infusion - 0.9% Sodium Chloride, 30 mL, intravenous, PRN [Held by Provider] ciprofloxacin (CIPRO) tablet 500 mg, 500 mg, oral, BID - special, 500 mg at 12/09/23 0522 dextrose gel in packet 15 g, 15 g, oral, Q15 Min PRN OR dextrose (D10W) 10% bolus 250 mL, 250 mL, intravenous, Q15 Min PRN enoxaparin (LOVENOX) syringe 40 mg, 40 mg, subcutaneous, Daily-2100, 40 mg at 12/08/23 2020 ertapenem (INVanz) 1,000 mg in sterile water 10 mL (100 mg/mL) IV syringe, 1,000 mg, intravenous, Q24H DARIN, Last Rate: 120 mL/hr at 12/09/23 1226, 1,000 mg at 12/09/23 1226 folic acid (FOLVITE) tablet 1 mg, 1 mg, oral, Daily, 1 mg at 12/09/23 0943 glucagon injection 1 mg, 1 mg, intramuscular, Q30 Min PRN guaiFENesin ER (MUCINEX) extended release tablet 1,200 mg, 1,200 mg, oral, BID PRN, 1,200 mg at 12/07/232103 insulin lispro (HumaLOG, ADMELOG) 100 unit/mL injection 0-10 Units, 0-10 Units, subcutaneous, TID with meals, 2 Units at 12/06/231156 insulin lispro (HumaLOG, ADMELOG) 100 unit/mL injection 0-5 Units, 0-5 Units, subcutaneous, Nightly, 1 Units at 12/08/232018 Lactated Ringer's (LR) bolus 1,000 mL, 1,000 mL, intravenous, Once, Last Rate: 333 mL/hr at 12/09/23 1153, 1,000 mL at 12/09/23 115 Lactated Ringer's (LR) bolus 1,000 mL, 1,000 mL, intravenous, Once, Last Rate: 1,000 mL/hr at 12/09/23 1335, 1,000 mL at 12/09/23 1335 losartan (COZAAR) tablet 25 mg, 25 mg, oral, Daily, 25 mg at 12/09/23 0943 [Held by Provider] metroNIDAZOLE (FLAGYL) tablet 500 mg, 500 mg, oral, BID, 500 mg at 12/09/23 0943 multivitamin with folic acid 400 mcg tablet 1 tablet, 1 tablet, oral, Daily, 1 tablet at 12/09/23 0943 ondansetron (ZOFRAN) injection 4 mg, 4 mg, intravenous, Q4H PRN, 4 mg at 12/09/[address] (PROTONIX) extended release tablet 40 mg, 40 mg, oral, Daily, 40 mg at 12/09/23 0943 phenoL (CHLORASEPTIC) 1.4 % oral spray 1 spray, 1 spray, mouth/throat, Q4H PRN, 1 spray at 058 polyethylene glycol (MIRALAX) packet 17 g, 17 g, oral, Daily PRN ramelteon (ROZEREM) tablet 8 mg, 8 mg, oral, Nightly PRN sodium chloride 0.9% flush 0.5-20 mL, 0.5-20 mL, intra-catheter, PRN, 10 mL at 12/07/23 0601 thiamine (VITAMIN B1) tablet 100 mg, 100 mg, oral, Daily, 100 mg at 12/09/23 0943 Lab/Radiology/Diagnostic Review: Recent Labs Lab Units 12/08/23202912/07/23211512/06/23214612/05/23212312/05/23 1109 HEMOGLOBIN g/dL 8.4* 7.8* 8.1* 7.8* 7.6* HEMATOCRIT % 27.6* 26.1* 27.7* 26.0* 25.5* WBC K/cumm 10.0* 9.7 12.2* 12.0* 12.3* PLATELETS K/cumm 483* 487* 490* 446* 463* Recent Labs Lab Units 12/09/23 1227 12/08/23202912/07/23211512/06/23214612/05/23212312/04/23 2219 SODIUM mmol/L 136 137 136 136 137 137 POTASSIUM PLASMA mmol/L See Comment 4.4 4.4 4.0 3.8 4.2 CHLORIDE mmol/L 102 104 102 104 105 105 CO2 mmol/L ANIONGAP mmol/L 10 7 9 8 6 10 BUN SERUM mg/dL 11 13 14 11 17 18 CREATININE mg/dL 0.73 0.80 0.82 0.82 0.79 0.81 CALCIUM mg/dL 8.8 8.7 8.3* 8.2* 8.0* 8.1* MAGNESIUM mg/dL -- 2.1 2.3 1.9 2.0 2.0 Recent Labs Lab Units 12/08/23202912/04/23 1758 12/04/23 1724 ALBUMIN g/dL 2.8* < > 2.5* ALK PHOS Units/L -- -- 82 AST Units/L -- -- 22 ALT Units/L -- -- 8 BILIRUBIN TOTAL mg/dL -- -- 0.3 < > = values in this interval not displayed. BCx 12/03: NGTD BCx 12/08: pending Lactate 1:45 pm: 4.9 Imaging: Abdominal X Ray 12/08/23: Indication: abdominal distention Interpretation: A single view of the abdomen is submitted for evaluation. Partially imaged left pleural effusion appears similar in size to previous study. Cholecystectomy clips present. Normal bowelgas pattern. Assessment/Plan Ms. Russo is a 63 y.o. female with presents with failure to thrive, IBD with contained sigmoid microperf, adnexal mass, new cavitating pulmonary lesions admitted for coordination of care. Darius Russo has a complex constellation of symptoms without a clear unifying etiology at this point in time. Her weight loss and lung nodules in the setting of adnexal mass is concerning for ovarian malignancy, but secondary school registrar/onc evaluation of adnexal mass gives a low index of suspicion for primary ovarian malignancy, and biopsy of lung tissue was not suggestive of malignancy. Weight loss may be secondary to mass effect from ovarian cyst, complicated by malabsorption secondary to IBD. Liver and spleen abscesses may suggest bacterial translocation in the setting of Crohn's disease flare, with subsequent seeding of lung. Although infectious workup of lungs has been negative, patient had been on ant ibiotics for several weeks before those samples were taken, so our findings on imaging may represent an improving process. # Tachyarrhythmia # Demand ischemia # Sepsis # bacterial translocation iso IBD On 12/03 episode of sudden onset rigors, tachyarrythmia and hypertension resolved with metoprolol, followed by nausea/emesis and several hours of fever, hypotension which responded well to IV fluids and broadened abx to vanc/zosyn x 2 days. Following tachyarrhythmia troponins were elevated, EKG reassuring against NC so suspect demand ischemia. Similar episode on 12/08 with sudden onset rigors, narrow complex tachycardia to 160s, hypertensionwhich responded well to 2x2.5 metoprolol. Now nausea, bilious emesis, febrile to 102.7, hypotensionwith MAP 60s, tachycardia to 130. POC lactate 4.9. Bolused 2L LR. Suspect a similar etiology of transient bacteremia secondary to bacterial translocation. - ertapenem 1g daily IV - CBC, CMP, Bcx pending - 4 hour lactate - replete for K>4, Mg>2 - Given that patient has had multiple episodes with significant tachyarrhythmia and sepsis it is likely that she will remain inpatient until we can obtain source control. 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 Symptoms well controlled on mesalamine until early this summer, with onset of 5+ daily nonbloody diarrhea, fecal incontinence, 65 lb weight loss, poor appetite, early satiety. Imaging with perforated sigmoid diverticulitis, has previously been managed conservatively. Outpatient was treated with mesalamine suppositories at home, follows with Dr. Jung. CT CAP 11/25 with worsening contained perf. PET CT 12/03 with slight interval increase in size of phlegmon. - Antibiotic history: zosyn (10/02-10/03, 11/03-11/05), bactrim (10/04-11/03), flagyl (10/04-11/03), augmentin (10/04-11/03), cipro (11/06-12/03), flagyl (11/06-12/03) vanc (12/03-12/05), zosyn (12/03-12/05), cipro (12/05-12/08), flagyl (12/05-12/08). Ertapenem (12/08-) - GI consult: patient not a candidate for infliximab at this time given active infection with liverand spleen microabscesses, sigmoid phlegmon, and suspected lung infection. She is likely as medically optimized for surgery as is reasonable. - Colorectal surgery consult: TAC with concurrent secondary school registrar/onc resection of adnexal mass on 12/23 - IPAP recs: - DOS T&S and H&H # Pulmonary nodules # Pleural effusion CT 11/25 with cavitating L upper lobe nodules, interlobular septal line thickening, regional lymphadenopathy, L pleural effusion and pleural thickening. Asymptomatic aside from cough x 1 week prior toadmission. No history of immunomodulatory treatment. Low suspicion for malignancy given that recent imaging in September shows no lung nodules. BAL 11/27. Workup for bacterial, mycobacterial, fungal, and viral etiologies has been negative thus far. Surgical pathology and cytology results revealing of organizing lung injury with a broad possible differential, but no evidence of malignancy or opportunistic infection. - Pulmonology c/s: signed off. - ID consult: sending broad PCR and sequencing from lung biopsies. Rec initiating ANCA vasulitis work up, which is pending. - Continue tessalon pearls TID PRN for cough # Liver and spleen microabscesses Noted on recent imaging. Recent balaji in August, per op note GB was full of stones and difficult to grasp but low suspicion for retained gallstone as nothing seen on imaging and microabscesses are intraparenchymal. During October admission IR consulted, abscesses too small to drain. Improved on 11/25 CT. Likely 2/2 bacterial translocation iso IBD flare. - abx as above # Adnexal mass Large multiseptated O RADS 3 lesion, likely arising from the right ovary found incidentally on imaging in August. Following with secondary school registrar onc, Dr. Rhodes. 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 - Considering colectomy with CRS so will also consult secondary school registrar/onc for consideration of concurrent cyst removal. # Severe Chronic Malnutrition 65 lb weight loss since July. Meets ASPEN criteria for severe chronic malnutrition. PO intake improved throughout admission. 2 lb weight loss from 11/24 admit to 12/03. - nutrition consult - Thiamine 500 IV x 3 loading then 100 mg daily - daily folic acid - daily multivitamin - daily B6 100 mg x 5 days (completed) # Normocytic anemia # Secondary hemochromatosis Iron deposition in liver noted incidentally on recent imaging. Elevated ferritin to 1868 iso acute inflammatory process. History of 3 lifetime blood transfusions and several recent iron infusions foranemia. However, given that anemia has been normocytic and patient has been chronically ill for several months, favor anemia of chronic disease over iron deficiency as etiology. - nutritional optimization, avoid further iron supplementation if possible - q3 day T&S, hgb >7. Consented. # T2DM A1C in October was 5.7. Managed on metformin 500 q24. - SSI # HTN -losartan 25 (cont home med) Code - Full Diet - Carb consistent DVT prophylaxis - subq lovenox, SCDs. Note that patient is at increased risk of VTE 2/2 IBD. Dispo - Pending surgical plan. Cosigned by Álvaro Radford MD at 12/09/2023 2:58 PM CDT * Plan of Care - Dee Dee Buenrostro - 12/08/2023 9:41 PM CDT Problem: Discharge Planning Goal: Understanding discharge needs will improve Outcome: Progressing Problem: Fall Risk Goal: Ability to state ways to decrease the risk of falls will improve Outcome: Progressing Goal: Will remain free from falls Outcome: Progressing Goal: Will remain free from injury from falls Outcome: Progressing Problem: Lack of Knowledge Goal: Ability to describe self care measures that may prevent or decrease complications related to Type 2 Diabetes will improve Outcome: Progressing Problem: Health Nutrition Goal: Nutritional intake and knowledge related to Diabetes will improve Outcome: Progressing Problem: Neurosensory Goal: Achieves maximal functionality and self care Outcome: Progressing Problem: Musculoskeletal Goal: Return mobility to safest level of function Outcome: Progressing Goal: Maintain proper alignment of affected body part Outcome: Progressing Goal: Return ADL status to a safe level of function Outcome: Progressing Goal: Ability to perform activities at highest level will improve Outcome: Progressing Goal: Mobility, ROM and muscle strength will improve Outcome: Progressing Problem: Gastrointestinal Goal: Minimal or absence of nausea and vomiting Outcome: Progressing Goal: Maintains or returns to baseline bowel function Outcome: Progressing Goal: Maintains adequate nutritional intake Outcome: Progressing Problem: Metabolic/Fluid and Electrolytes Goal: Electrolytes maintained within normal limits Outcome: Progressing Goal: Glucose maintained within prescribed range Outcome: Progressing Problem: Lack of Knowledge Goal: Ability to develop a pain control plan will improve Outcome: Progressing Problem: Medication Goal: Satisfaction with pain management medication regimen will improve Outcome: Progressing Problem: Sensory Goal: Ability to identify factors that increase pain levels will improve while working to decrease the patient's pain levels Outcome: Progressing Problem: Coping Goal: Ability to cope will improve Outcome: Progressing Problem: Health Behavior Goal: Identification of resources available to assist in meeting health care needs will improve Outcome: Progressing Problem: Respiratory Goal: Achieves optimal ventilation and oxygenation Outcome: Progressing Goal: Ability to maintain a clear airway will improve Outcome: Progressing Problem: Skin/Tissue Integrity Goal: Incisions, wounds, or drain sites healing without S/S of infection Outcome: Progressing Problem: Infection Goal: Absence of infection during hospitalization Outcome: Progressing Problem: Isolation Lack of Knowledge Goal: Knowledge of risk factors and measures for prevention of condition will improve Outcome: Progressing Problem: Isolation Physical Regulation Goal: Isolation- Spread of further infection will be prevented Outcome: Progressing Goal: Isolation- Complications related to the disease process, condition, or treatment will be avoided or minimized. Outcome: Progressing Problem: Hematologic Goal: Maintains hematologic stability Outcome: Progressing Problem: Skin Integrity Impairment Risk Goal: Mobility will improve Outcome: Progressing Goal: Understanding of ways to prevent future skin breakdown will improve Outcome: Progressing Goal: Nutritional status will improve Outcome: Progressing Goal: Risk for impaired skin integrity will decrease Outcome: Progressing Problem: Genitourinary Goal: Absence of urinary retention Outcome: Progressing Problem: Cardiovascular Goal: Maintains optimal cardiac output and hemodynamic stability Outcome: Progressing Goals: Clinical Goals for the Shift: safety, comfort, VSS, Monitor and treat BG, monitor labs, IV fluids Summary: * Consults, Subsequent - Fernando Dooley MD - 12/08/2023 3:49 PM CDT Private GI Subsequent Consult Subjective Chief complaint of FTT, contained sigmoid perf Interval History: - NAEO - Feeling well, eating well Objective Physical Exam: Vitals: 24hr Min/Max: Temp Min: 36.4 ??C (97.5 ??F) Max: 36.8 ??C (98.2 ??F) Pulse Min: 94 Max: 106 BP Min: 108/66 Max: 131/68 Resp Min: 18 Max: 18 SpO2 Min: 96 % Max: 100 % Most Recent : Vitals: 12/08/23 1540 BP: 120/65 Pulse: 106 Resp: Temp: 36.7 ??C (98.1 ??F) SpO2: 99% Physical exam: Constitutional: NAD. In bed. Eyes: EOMI grossly intact. Anicteric ENT: NCAT. moist mucus membranes. Lungs: Breathing comfortably on RA. Unlabored. Trachea midline. Cardiovascular: RRR, normal S1 and S2. GI: Soft, NT, ND Skin: No new rashes, lesions or bruises Extremities: Normal without edema or cyanosis Neuro: Alert. MAEW. Assessment/Plan Principal Problem: Physical deconditioning Active Problems: Splenic abscess Pulmonary nodule Hepatic abscess Severe malnutrition (CMS/HCC) Consolidation of left upper lobe of lung (CMS/HCC) (HCC) Darius Russo is a 63 y.o. female with PMH HTN, T2DM, s/p cholecystectomy, a large adnexal mass c/f malignancy, and suspected crohn???s colitis who presents for contained sigmoid perf and FTT. 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 She was admitted with the plan to initiate IFX, however she had new symptoms of a cough and CT showing cavitary pulmonary nodules as well as increased pericolonic fluid collection. Both of these findings pose significant barriers to initiating abx. While mycobacterial/fungal infection causing thesecavitary lesions in the lung are still possible, their interval improvement without directed therapy is reassuring. Progressive worsening of her sigmoid phlegmon this admission however still poses a contraindication to IFX initiation. She has been evaluated by CRS this admission. Tentative plan for colectomy 12/23. Recommendations: - f/u infectious/bronch studies - Appreciate CRS/Business Office Representative Onc consults. Tentative plan for TAC and adnexal mass resection on 12/23 - abx per primary/ID - Cont optimization of nutritional status. TPN not viable given intraabdominal fluid collection with mircroabscesses and possible infectious process involving lungs - Reasonable for discharge given overall stability We will continue to follow-up with you. Thank you for involving us in the care of this patient. If you have any questions, please call the private GI pager during weekdays or the [facility] phone during after hours and weekends. Fernando Dooley MD GI Fellow * Plan of Care - Dariana Cramer RN - 12/08/2023 3:34 PM CDT 12/08/23 1532 Discharge Planning Support System Spouse/Significant Other;Family members Anticipated discharge level of care Private residence Does the patient need discharge transport arranged? No (family to provide transportation) Discharge Transportation Communication Mode of transport has been discussed with the patient/family. All are agreeable to the plan and understand their responsibilities to ensure the safe transfer. No further CM/SW intervention is anticipated at this time. Post Acute Care Plan Home Care Services N/A OP Services N/A DME N/A Post Acute Care Facility N/A CM Progression of Care Update Per Medical Chart/Rounds/IDR: Patient is not medically ready for discharge ADD: 12-08 Discharge Barriers: No anticipated discharge barrer Education Needs Identified (plan): Pending Pre-op Anesthesia eval. No home care needs F/U Appointments: Pending Patient's Identified Problem/Goal Problem:?Ensure acute medical needs are met and that patient has a safe discharge plan. Goal:?Secure a discharge plan that patient/family are agreeable with?and ensure patient has continuum of care. Patient and/or family are agreeable with plan. workers compensation manager will continue to follow and assist with discharge planning as needed. If any further discharge needs arise, please contact the covering embedded case manager. Dariana Cramer RN,BSN,CM * Pre-Procedure Instructions - Chris Ricci NP - 12/08/2023 3:05 PM CDT [facility] Location: [facility] The night before your surgery: * Do not eat anything after midnight the night before your procedure. The morning of your surgery: * You may have clear liquids on your surgery day. You must stop drinking two hours before you arrive to the surgery facility. Acceptable clear liquids include water, clear sports drinks, black coffee, tea, or clear soda. DO NOT drink any milk, creamer, or alcohol. * Your surgeon's office may have provided additional instructions or restrictions. Please follow those instructions. * You may brush your teeth and rinse your mouth out. * Do not wear jewelry, body piercings, makeup, hairpins, false eyelashes or contact lenses to the hospital. * Leave any valuables at home or with your family. If you are a smoker: * You should prepare for your surgery and recovery well ahead of time. Stop smoking at least 2 weeks before surgery to help prevent infection and help your body recover faster. Ask your surgeon for tools to help you quit or call 8-127-OTGPDDX ( ). Visit Smokefree.gov for more information. * Do not smoke during the 24 hours before surgery. If you have Diabetes: * If your blood sugar is low before you come to the hospital, drink a small amount of sugar water or clear juice like apple or cranberry juice. DO NOT drink orange or pineapple juice. These are not clear liquids. * Please call your surgeon and/or the CPAP Clinic if you have any questions. Instructions For Your Medications: - please call CPAP for instruction for any new meds given after discharge acetaminophen 500 mg capsule - Take on day of surgery if needed ciprofloxacin (CIPRO) 500 mg tablet - Follow prescriber instructions cyanocobalamin (Vitamin B-12) 2,500 mcg tablet, sublingual - Don't take on day of surgery ferrous sulfate 325 mg (65 mg of elemental iron) tablet - Don't take on day of surgery loperamide (IMODIUM) 2 mg capsule - Don't take on day of surgery losartan (COZAAR) 25 mg tablet - Don't take on day of surgery magnesium oxide 500 mg capsule - Don't take on day of surgery mesalamine (CANASA) 1,000 mg - Don't take on day of surgery metroNIDAZOLE (FLAGYL) 500 mg tablet - Follow prescriber instructions pantoprazole DR (PROTONIX) 40 mg EC tablet - Take on day of surgery if needed General Instructions For Medications: * Stop all of these medications 5 days prior to your surgery: excedrin, motrin, advil, ibuprofen, aleve, naproxen, meloxicam, celebrex, celecoxib. For medications that you are instructed to take on the morning of surgery, take the medications with a few sips of water. Stop all of these medications 7-14 days prior to your surgery: Vitamin E, Herbal medicines, Diet Pills If you have pain, you may take tylenol (acetaminophen). Do not take more than 6 tablets or 3000 mg (3 g) within a 24 period. Call your surgeon and the CPAP clinic if any of the following happens before surgery: Any changes in your health You have a fever You have any signs of an infection (chest, urinary tract or tooth) You have been to the Emergency Room or were in the hospital You have started taking any new medications If laboratory testing was completed during your visit, we will only contact you regarding any results that require you to take additional action prior to your planned procedure. * Plan of Care - Eleonora Martinez RN - 12/08/2023 1:46 PM CDT Problem: Discharge Planning Goal: Understanding discharge needs will improve Outcome: Progressing Problem: Fall Risk Goal: Ability to state ways to decrease the risk of falls will improve Outcome: Progressing Goal: Will remain free from falls Outcome: Progressing Goal: Will remain free from injury from falls Outcome: Progressing Problem: Skin Integrity Impairment Risk Goal: Mobility will improve Outcome: Progressing Goal: Understanding of ways to prevent future skin breakdown will improve Outcome: Progressing Goal: Nutritional status will improve Outcome: Progressing Goal: Risk for impaired skin integrity will decrease Outcome: Progressing Problem: Lack of Knowledge Goal: Ability to describe self care measures that may prevent or decrease complications related to Type 2 Diabetes will improve Outcome: Progressing Goals: Clinical Goals for the Shift: safety, comfort, VSS, Monitor and treat BG, monitor labs, IV fluids Summary: Nurse will continue to promote comfort and safety * Medical Student - Amanda Westfall - 12/08/2023 7:00 AM CDT Medicine Daily Progress Note Chief complaint: failure to thrive iso IBD with contained microperf Interval History: NAEON. VSS. Ear pain improving, patient still complaining of drainage and sore throat. Patient reports abdomen looks more distended today, no new abdominal pain or nausea and stooling normally. Objective Vital Signs: 24hr Min/Max: Temp Min: 36.4 ??C (97.5 ??F) Max: 36.8 ??C (98.2 ??F) Pulse Min: 94 Max: 102 BP Min: 110/59 Max: 131/68 Resp Min: 18 Max: 18 SpO2 Min: 96 % Max: 100 % Intake/Output: Three formed bowel movements, no blood. No intake or output data in the 24 hours ending 12/08/23 0701 Physical Exam: General appearance: no acute distress HEENT: NCAT, MMM, anicteric. Throat pink, without erythema. Tonsils not enlarged, no exudates. Lungs: decreased breath sounds on the left, no w/r/r, non-labored Heart: RRR, S1, S2 normal, no murmur, rub or gallop. JVP not elevated, no LE edema. Abdomen: soft, distended, not tympanitic to percussion, bowel sounds normal. Stable LLQ pain to palpation. Extremities: extremities normal, warm and well-perfused, equal pulses. No mottling. Pedal pulses palpable. Skin: warm and dry Neurologic: No abnormal movements, non-focal exam Current Medications: Current Facility-Administered Medications: acetaminophen (TYLENOL) tablet 650 mg, 650 mg, oral, Q4H PRN, 650 mg at 12/06/23 2138 al & mag hydroxide arokbhglxsv-aqaphombsabjrlv-kihyaqwrk-nystatin (MAGIC MOUTHWASH) oral suspension 1-1-1-1 15 mL, 15 mL, swish & spit, Q8H PRN, 15 mL at 12/07/23 1719 benzocaine-menthoL (CHLORASEPTIC) lozenge 1 lozenge, 1 lozenge, mouth/throat, Q2H PRN benzonatate (TESSALON) capsule 100 mg, 100 mg, oral, TID PRN, 100 mg at 12/07/23 1719 Carrier Fluids for Secondary Infusion - 0.9% Sodium Chloride, 30 mL, intravenous, PRN ciprofloxacin (CIPRO) tablet 500 mg, 500 mg, oral, BID - special, 500 mg at 12/08/23 0548 dextrose gel in packet 15 g, 15 g, oral, Q15 Min PRN OR dextrose (D10W) 10% bolus 250 mL, 250 mL, intravenous, Q15 Min PRN enoxaparin (LOVENOX) syringe 40 mg, 40 mg, subcutaneous, Daily-2100, 40 mg at 12/07/23 205 folic acid (FOLVITE) tablet 1 mg, 1 mg, oral, Daily, 1 mg at 12/07/23 0916 glucagon injection 1 mg, 1 mg, intramuscular, Q30 Min PRN guaiFENesin ER (MUCINEX) extended release tablet 1,200 mg, 1,200 mg, oral, BID PRN, 1,200 mg at 12/07/232103 insulin lispro (HumaLOG, ADMELOG) 100 unit/mL injection 0-10 Units, 0-10 Units, subcutaneous, TID with meals, 2 Units at 12/06/23 115 insulin lispro (HumaLOG, ADMELOG) 100 unit/mL injection 0-5 Units, 0-5 Units, subcutaneous, Nightly, 1 Units at 12/07/23 223 losartan (COZAAR) tablet 25 mg, 25 mg, oral, Daily, 25 mg at 12/07/23 121 metroNIDAZOLE (FLAGYL) tablet 500 mg, 500 mg, oral, BID, 500 mg at 12/07/232052 multivitamin with folic acid 400 mcg tablet 1 tablet, 1 tablet, oral, Daily, 1 tablet at 12/07/23 0916 ondansetron (ZOFRAN) injection 4 mg, 4 mg, intravenous, Q4H PRN pantoprazole DR (PROTONIX) extended release tablet 40 mg, 40 mg, oral, Daily, 40 mg at 12/07/2316 phenoL (CHLORASEPTIC) 1.4 % oral spray 1 spray, 1 spray, mouth/throat, Q4H PRN, 1 spray at polyethylene glycol (MIRALAX) packet 17 g, 17 g, oral, Daily PRN pyridoxine (VITAMIN B6) tablet 100 mg, 100 mg, oral, Daily, 100 mg at 12/07/23 0916 ramelteon (ROZEREM) tablet 8 mg, 8 mg, oral, Nightly PRN sodium chloride 0.9% flush 0.5-20 mL, 0.5-20 mL, intra-catheter, PRN, 10 mL at 12/07/23 0601 thiamine (VITAMIN B1) tablet 100 mg, 100 mg, oral, Daily, 100 mg at 12/07/23 0916 Lab/Radiology/Diagnostic Review: Recent Labs Lab Units 12/07/23211512/06/23214612/05/234 12/05/23 1109 12/04/23 2030 HEMOGLOBIN g/dL 7.8* 8.1* 7.8* 7.6* 7.6* HEMATOCRIT % 26.1* 27.7* 26.0* 25.5* 25.3* WBC K/cumm 9.7 12.2* 12.0* 12.3* 24.2* PLATELETS K/cumm 487* 490* 446* 463* 483* Recent Labs Lab Units 12/07/23211512/06/23214612/05/23212312/04/23 2219 12/04/23 1758 12/04/23 1724 SODIUM mmol/L 136 136 137 137 < > 135 POTASSIUM PLASMA mmol/L 4.4 4.0 3.8 4.2 < > 4.4 CHLORIDE mmol/L 102 104 105 105 < > 102 CO2 mmol/L 25 24 26 22 < > 23 ANIONGAP mmol/L 9 8 6 10 < > 10 BUN SERUM mg/dL 14 11 17 18 < > 18 CREATININE mg/dL 0.82 0.82 0.79 0.81 < > 0.83 CALCIUM mg/dL 8.3* 8.2* 8.0* 8.1* < > 8.1* MAGNESIUM mg/dL 2.3 1.9 2.0 2.0 -- 2.5 < > = values in this interval not displayed. Recent Labs Lab Units 12/07/23211512/04/23 17512/04/23 1724 ALBUMIN g/dL 2.7* < > 2.5* ALK PHOS Units/L -- -- 82 AST Units/L -- -- 22 ALT Units/L -- -- 8 BILIRUBIN TOTAL mg/dL -- -- 0.3 < > = values in this interval not displayed. BC 12/03: NGTD Assessment/Plan Ms. Russo is a 63 y.o. female with presents with failure to thrive, IBD with contained sigmoid microperf, adnexal mass, new cavitating pulmonary lesions admitted for coordination of care. Darius Russo has a complex constellation of symptoms without a clear unifying etiology at this point in time. Her weight loss and lung nodules in the setting of adnexal mass is concerning for ovarian malignancy, but secondary school registrar/onc evaluation of adnexal mass gives a low index of suspicion for primary ovarian malignancy, and biopsy of lung tissue was not suggestive of malignancy. Weight loss may be secondary to mass effect from ovarian cyst, complicated by malabsorption secondary to IBD. Liver and spleen abscesses may suggest bacterial translocation in the setting of Crohn's disease flare, with subsequent seeding of lung. Although infectious workup of lungs has been negative, patient had been on ant ibiotics for several weeks before those samples were taken. 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 Symptoms well controlled on mesalamine until early this summer, with onset of 5+ daily nonbloody diarrhea, fecal incontinence, 65 lb weight loss, poor appetite, early satiety. Imaging with perforated sigmoid diverticulitis, has previously been managed conservatively. Outpatient was treated with mesalamine suppositories at home, follows with Dr. Jung. CT CAP 11/25 with worsening contained perf. LLQ tender on exam but not peritonitic. Increased abdominal distention noted on exam today, patient and also independently noticed this. No new abdominal pain or tenderness, no changes in PO intake or bowel movements so low index of suspicion for pathologic process but will evaluate with KUB. - Antibiotic history: zosyn (10/02-10/03, 11/03-11/05), bactrim (10/04-11/03), flagyl (10/04-11/03), augmentin (10/04-11/03), cipro (11/06-12/03), flagyl (11/06-12/03) vanc (12/03-12/05), zosyn (12/03-12/05). - GI consult: patient not a candidate for infliximab at this time given active infection with liverand spleen microabscesses, sigmoid phlegmon, and suspected lung infection. She is likely as medically optimized for surgery as is reasonable. - Colorectal surgery consult: TAC with concurrent secondary school registrar/onc resection of adnexal mass on 12/23 - IPAP consult today - Abdominal X ray today to evaluate new distention. # Sepsis Patient meeting SIRS criteria (temp>100.4, HR>90, WBC>12) and has several possible sourcesof infection (sigmoid phlegmon and microperf, resolving liver/spleen abscesses, cavitary pulmonary nodules). Initial concern for progression of known sigmoid perforation and phlegmon, especially given temporality of sudden symptom onset following bowel movement, but abdominal exam not peritonitic and abdominal x ray without pneumoperitoneum. Additionally, CBC collected minutes after symptom onsetshowed leukocytosis to 24 from 12, suggesting an earlier event. Possible explanation is transient bacterial translocation 2/2 IBD. Fever, hypotension to MAPs 50s, tachycardia to 121 resolved since broadening abx. Broadened abx to vanc/zosyn 12/03-12/05. Has been afebrile, HDS since 12/04, bcx no growth so narrowed back to cipro/flagyl - ciprofloxacin 500 PO BID, flagyl 500 PO BID # SVT # Demand ischemia On 12/03 new, sudden onset tachyarrhythmia and hypertension following a bowel movement. EKG showed narrow complex tachycardia without P waves. Unable to terminate with vagal maneuvers, converted to sinus rhythm with adenosine and metoprolol. Patient has no cardiac history. Hyperthyroidism can predispose to SVT and patient has had multinodular goiter on imaging but TSH on 11/29 was 2.09. In the setting of new onset fever, suspect SVT was provoked by infection. Exponential troponin leak following SVT which is resolving (5->770->1000->1200->500->400). EKG reassuring and patient without any typical or atypical anginal symptoms. Suspect transient demand ischemia 2/2 tachyarrhythmia. - replete for K>4, Mg >2 # Pulmonary nodules # Pleural effusion CT 11/25 with cavitating L upper lobe nodules, interlobular septal line thickening, regional lymphadenopathy, L pleural effusion and pleural thickening. Asymptomatic aside from cough x 1 week prior toadmission. No history of immunomodulatory treatment. Low suspicion for malignancy given that recent imaging in September shows no lung nodules. BAL 11/27. Workup for bacterial, mycobacterial, fungal, and viral etiologies has been negative thus far. Surgical pathology and cytology results revealing of organizing lung injury with a broad possible differential, but no evidence of malignancy or opportunistic infection. - Pulmonology c/s: signed off. - ID consult: sending broad PCR and sequencing from lung biopsies. Rec initiating ANCA vasulitis work up, which is pending. - Continue tessalon pearls TID PRN for cough # Liver and spleen microabscesses Noted on recent imaging. Recent balaji in August, per op note GB was full of stones and difficult to grasp but low suspicion for retained gallstone as nothing seen on imaging and microabscesses are intraparenchymal. During October admission IR consulted, abscesses too small to drain. Improved on 11/25 CT. Likely 2/2 bacterial translocation iso IBD flare. - abx as above # Adnexal mass Large multiseptated O RADS 3 lesion, likely arising from the right ovary found incidentally on imaging in August. Following with secondary school registrar onc, Dr. Rhodes. 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 - Considering colectomy with CRS so will also consult secondary school registrar/onc for consideration of concurrent cyst removal. # Severe Chronic Malnutrition 65 lb weight loss since July. Meets ASPEN criteria for severe chronic malnutrition. PO intake improved throughout admission. 2 lb weight loss from 11/24 admit to 12/03. - nutrition consult - Thiamine 500 IV x 3 loading then 100 mg daily - daily folic acid - daily multivitamin - daily B6 100 mg # Normocytic anemia # Secondary hemochromatosis Iron deposition in liver noted incidentally on recent imaging. Elevated ferritin to 1868 iso acute inflammatory process. History of 3 lifetime blood transfusions and several recent iron infusions foranemia. However, given that anemia has been normocytic and patient has been chronically ill for several months, favor anemia of chronic disease over iron deficiency as etiology. - nutritional optimization, avoid further iron supplementation if possible - q3 day T&S, hgb >7. Consented. # T2DM A1C in October was 5.7. Managed on metformin 500 q24. - SSI # HTN -losartan 25 (cont home med) Code - Full Diet - Carb consistent DVT prophylaxis - subq lovenox, SCDs. Note that patient is at increased risk of VTE 2/2 IBD. Dispo - Tomorrow to home Cosigned by Álvaro Radford MD at 12/08/2023 2:54 PM CDT * Plan of Care - Johana Ayoub - 12/08/2023 6:34 AM CDT Goals: Clinical Goals for the Shift: safety, comfort, VSS, Monitor and treat BG, monitor labs, IV fluids Summary: Monitor vitals and labs. No complain of pain this shift. Respiration even unlabored. Call light and bedside table within reach, comfort and safety measures in place. Problem: Discharge Planning Goal: Understanding discharge needs will improve Outcome: Progressing Problem: Fall Risk Goal: Ability to state ways to decrease the risk of falls will improve Outcome: Progressing Goal: Will remain free from falls Outcome: Progressing Goal: Will remain free from injury from falls Outcome: Progressing Problem: Lack of Knowledge Goal: Ability to describe self care measures that may prevent or decrease complications related to Type 2 Diabetes will improve Outcome: Progressing Problem: Health Nutrition Goal: Nutritional intake and knowledge related to Diabetes will improve Outcome: Progressing Problem: Neurosensory Goal: Achieves maximal functionality and self care Outcome: Progressing Problem: Musculoskeletal Goal: Return mobility to safest level of function Outcome: Progressing Goal: Maintain proper alignment of affected body part Outcome: Progressing Goal: Return ADL status to a safe level of function Outcome: Progressing Goal: Ability to perform activities at highest level will improve Outcome: Progressing Goal: Mobility, ROM and muscle strength will improve Outcome: Progressing Problem: Gastrointestinal Goal: Minimal or absence of nausea and vomiting Outcome: Progressing Goal: Maintains or returns to baseline bowel function Outcome: Progressing Goal: Maintains adequate nutritional intake Outcome: Progressing Problem: Metabolic/Fluid and Electrolytes Goal: Electrolytes maintained within normal limits Outcome: Progressing Goal: Glucose maintained within prescribed range Outcome: Progressing Problem: Lack of Knowledge Goal: Ability to develop a pain control plan will improve Outcome: Progressing Problem: Medication Goal: Satisfaction with pain management medication regimen will improve Outcome: Progressing Problem: Sensory Goal: Ability to identify factors that increase pain levels will improve while working to decrease the patient's pain levels Outcome: Progressing Problem: Coping Goal: Ability to cope will improve Outcome: Progressing Problem: Health Behavior Goal: Identification of resources available to assist in meeting health care needs will improve Outcome: Progressing Problem: Respiratory Goal: Achieves optimal ventilation and oxygenation Outcome: Progressing Goal: Ability to maintain a clear airway will improve Outcome: Progressing Problem: Skin/Tissue Integrity Goal: Incisions, wounds, or drain sites healing without S/S of infection Outcome: Progressing Problem: Infection Goal: Absence of infection during hospitalization Outcome: Progressing Problem: Isolation Lack of Knowledge Goal: Knowledge of risk factors and measures for prevention of condition will improve Outcome: Progressing Problem: Isolation Physical Regulation Goal: Isolation- Spread of further infection will be prevented Outcome: Progressing Goal: Isolation- Complications related to the disease process, condition, or treatment will be avoided or minimized. Outcome: Progressing Problem: Hematologic Goal: Maintains hematologic stability Outcome: Progressing Problem: Skin Integrity Impairment Risk Goal: Mobility will improve Outcome: Progressing Goal: Understanding of ways to prevent future skin breakdown will improve Outcome: Progressing Goal: Nutritional status will improve Outcome: Progressing Goal: Risk for impaired skin integrity will decrease Outcome: Progressing Problem: Genitourinary Goal: Absence of urinary retention Outcome: Progressing Problem: Cardiovascular Goal: Maintains optimal cardiac output and hemodynamic stability Outcome: Progressing * Plan of Andres - Joseline Ac - 12/07/2023 7:34 AM CDT Problem: Discharge Planning Goal: Understanding discharge needs will improve Outcome: Progressing Problem: Fall Risk Goal: Ability to state ways to decrease the risk of falls will improve Outcome: Progressing Goal: Will remain free from falls Outcome: Progressing Goal: Will remain free from injury from falls Outcome: Progressing Problem: Skin Integrity Impairment Risk Goal: Mobility will improve Outcome: Progressing Goal: Understanding of ways to prevent future skin breakdown will improve Outcome: Progressing Goal: Nutritional status will improve Outcome: Progressing Goal: Risk for impaired skin integrity will decrease Outcome: Progressing Problem: Lack of Knowledge Goal: Ability to describe self care measures that may prevent or decrease complications related to Type 2 Diabetes will improve Outcome: Progressing Problem: Health Nutrition Goal: Nutritional intake and knowledge related to Diabetes will improve Outcome: Progressing Problem: Musculoskeletal Goal: Return mobility to safest level of function Outcome: Progressing Goal: Maintain proper alignment of affected body part Outcome: Progressing Goal: Return ADL status to a safe level of function Outcome: Progressing Goal: Ability to perform activities at highest level will improve Outcome: Progressing Goal: Mobility, ROM and muscle strength will improve Outcome: Progressing Problem: Gastrointestinal Goal: Minimal or absence of nausea and vomiting Outcome: Progressing Goal: Maintains or returns to baseline bowel function Outcome: Progressing Goal: Maintains adequate nutritional intake Outcome: Progressing Problem: Metabolic/Fluid and Electrolytes Goal: Electrolytes maintained within normal limits Outcome: Progressing Goal: Glucose maintained within prescribed range Outcome: Progressing Problem: Respiratory Goal: Achieves optimal ventilation and oxygenation Outcome: Progressing Goal: Ability to maintain a clear airway will improve Outcome: Progressing Goals: Clinical Goals for the Shift: safety, comfort, VSS, Monitor and treat BG, monitor labs, IV fluids * Plan of Care - Johana Ayoub - 12/07/2023 6:58 AM CDT Goals: Clinical Goals for the Shift: safety, comfort, VSS, Monitor and treat BG, monitor labs, IV fluids Summary: Problem: Discharge Planning Goal: Understanding discharge needs will improve Outcome: Progressing Problem: Fall Risk Goal: Ability to state ways to decrease the risk of falls will improve Outcome: Progressing Goal: Will remain free from falls Outcome: Progressing Goal: Will remain free from injury from falls Outcome: Progressing Problem: Lack of Knowledge Goal: Ability to describe self care measures that may prevent or decrease complications related to Type 2 Diabetes will improve Outcome: Progressing Problem: Health Nutrition Goal: Nutritional intake and knowledge related to Diabetes will improve Outcome: Progressing Problem: Neurosensory Goal: Achieves maximal functionality and self care Outcome: Progressing Problem: Musculoskeletal Goal: Return mobility to safest level of function Outcome: Progressing Goal: Maintain proper alignment of affected body part Outcome: Progressing Goal: Return ADL status to a safe level of function Outcome: Progressing Goal: Ability to perform activities at highest level will improve Outcome: Progressing Goal: Mobility, ROM and muscle strength will improve Outcome: Progressing Problem: Gastrointestinal Goal: Minimal or absence of nausea and vomiting Outcome: Progressing Goal: Maintains or returns to baseline bowel function Outcome: Progressing Goal: Maintains adequate nutritional intake Outcome: Progressing Problem: Metabolic/Fluid and Electrolytes Goal: Electrolytes maintained within normal limits Outcome: Progressing Goal: Glucose maintained within prescribed range Outcome: Progressing Problem: Lack of Knowledge Goal: Ability to develop a pain control plan will improve Outcome: Progressing Problem: Medication Goal: Satisfaction with pain management medication regimen will improve Outcome: Progressing Problem: Sensory Goal: Ability to identify factors that increase pain levels will improve while working to decrease the patient's pain levels Outcome: Progressing Problem: Coping Goal: Ability to cope will improve Outcome: Progressing Problem: Health Behavior Goal: Identification of resources available to assist in meeting health care needs will improve Outcome: Progressing Problem: Respiratory Goal: Achieves optimal ventilation and oxygenation Outcome: Progressing Goal: Ability to maintain a clear airway will improve Outcome: Progressing Problem: Skin/Tissue Integrity Goal: Incisions, wounds, or drain sites healing without S/S of infection Outcome: Progressing Problem: Infection Goal: Absence of infection during hospitalization Outcome: Progressing Problem: Isolation Lack of Knowledge Goal: Knowledge of risk factors and measures for prevention of condition will improve Outcome: Progressing Problem: Isolation Physical Regulation Goal: Isolation- Spread of further infection will be prevented Outcome: Progressing Goal: Isolation- Complications related to the disease process, condition, or treatment will be avoided or minimized. Outcome: Progressing Problem: Hematologic Goal: Maintains hematologic stability Outcome: Progressing Problem: Skin Integrity Impairment Risk Goal: Mobility will improve Outcome: Progressing Goal: Understanding of ways to prevent future skin breakdown will improve Outcome: Progressing Goal: Nutritional status will improve Outcome: Progressing Goal: Risk for impaired skin integrity will decrease Outcome: Progressing Problem: Genitourinary Goal: Absence of urinary retention Outcome: Progressing Problem: Cardiovascular Goal: Maintains optimal cardiac output and hemodynamic stability Outcome: Progressing * Consults, Subsequent - Fernando Dooley MD - 12/06/2023 10:38 AM CDT Private GI Subsequent Consult Subjective Chief complaint of FTT, contained sigmoid perf Interval History: - NAEO - Feeling well Objective Physical Exam: Vitals: 24hr Min/Max: Temp Min: 36.6 ??C (97.9 ??F) Max: 36.7 ??C (98.1 ??F) Pulse Min: 86 Max: 94 BP Min: 98/55 Max: 144/81 Resp Min: 18 Max: 20 SpO2 Min: 97 % Max: 99 % Most Recent : Vitals: 12/06/23 0731 BP: 140/66 Pulse: 94 Resp: 18 Temp: 36.7 ??C (98.1 ??F) SpO2: 98% Physical exam: Constitutional: NAD. In bed. Eyes: EOMI grossly intact. Anicteric ENT: NCAT. moist mucus membranes. Lungs: Breathing comfortably on RA. Unlabored. Trachea midline. Cardiovascular: RRR, normal S1 and S2. GI: Soft, NT, ND Skin: No new rashes, lesions or bruises Extremities: Normal without edema or cyanosis Neuro: Alert. MAEW. Assessment/Plan Principal Problem: Physical deconditioning Active Problems: Splenic abscess Pulmonary nodule Hepatic abscess Severe malnutrition (CMS/HCC) Consolidation of left upper lobe of lung (CMS/HCC) (HCC) Darius Russo is a 63 y.o. female with PMH HTN, T2DM, s/p cholecystectomy, a large adnexal mass c/f malignancy, and suspected crohn???s colitis who presents for contained sigmoid perf and FTT. 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 She was admitted with the plan to initiate IFX, however she had new symptoms of a cough and CT showing cavitary pulmonary nodules as well as increased pericolonic fluid collection. Both of these findings pose significant barriers to initiating abx. While mycobacterial/fungal infection causing thesecavitary lesions in the lung are still possible, their interval improvement without directed therapy is reassuring. Progressive worsening of her sigmoid phlegmon with escalation to IV abx requirementthis admission however still poses a contraindication to IFX initiation. She has been evaluated by CRS this admission. Tentative plan for TAC 12/16. Recommendations: - f/u infectious/bronch studies - Appreciate CRS/Business Office Representative Onc consults. Tentative plan for TAC and adnexal mass resection on 12/23 - abx per primary/ID - Cont optimization of nutritional status. TPN not viable given intraabdominal fluid collection with mircroabscesses and possible infectious process involving lungs We will continue to follow-up with you. Thank you for involving us in the care of this patient. If you have any questions, please call the private GI pager during weekdays or the [facility] phone during after hours and weekends. Fernando Dooley MD GI Fellow * Provider Query - Álvaro Radford MD - 12/06/2023 8:12 AM CDT THIS IS A VALIDATION QUERY - ADDITIONAL CLINICAL INFORMATION REQUESTED Clinical Indicators/Treatments: ADMIT: 11/25/23 1900 Latest Reference Range & Units 11/30/23 22:55 12/01/23 21:46 12/03/23 00:09 12/04/23 00:19 12/04/23 16:02 12/05/23 11:09 WBC 3.8 - 9.9 K/cumm 17.2 (H) 13.4 (H) 12.5 (H) 12.6 (H) 24.1 (H) 12.3 (H) (H): Data is abnormally high 12/03 1525 Vitals: Temp: 97.9F HR: 152 BP: 161/101 (113) O2: 100% 11/24 HP: 63 y.o. female...presenting as direct admit from GI clinic for progressive weight loss. 12/03 PN: - This PM, patient had a BM and subsequently developed abdominal pain and shaking. I wascalled to bedside by RN. Bedside evaluation without evidence of rigid abdomen though with ?mottlingof the skin in RLE, WWP. VS notable for hypertension (161/101) and fluctuating tachycardia, initially in 140s-150s, then low 100s, then back to 150s-170s. EKG demonstrated SVT. SVT ultimately transiti oned to sinus tachycardia (HR 120s) after vagal maneuvers, adenosine 6mg x1 and metoprolol 5mg x1. We also gave patient 1L NS. After transitioning to sinus tachycardia, patient had NBNB emesis. Labs from ACT demonstrated new leukocytosis. CXR/AXR wtihout acute findings. Patient was subsequently febrile to 101.9F with persistent sinus tachycardia and hypotension (MAPs 50s), lactate 1.7>1.9. I gave another 1L LR, broadened antibiotics to vancomycin/zosyn, and started mIVF. Troponins uptrendingsince ACT (5>770>1061>1176) though reassuringly, patient remains without anginal symptoms or concerning EKG findings. ?Mottling of the skin now resolved. Suspect presentation 2/2 sepsis. [place] cx NGTD... #Possible evolving sepsis Patient developed SVT with acute abdominal pain, and subsequently fever and hypotension with MAPs in the 50s, sustained, 12/03 after BM. Suspect possible transient bacteremia (?gut source). Given tenuous clinical status, treating as sepsis. - vancomycin 15mg/kg q12h, piperacillin-tazobactam 4.5g q6h (12/03-) - s/p IVF bolus. Continue mIVF Treatment: Lab/VS monitoring Vancomycin, Zosyn IV fluid bolus Based on the [facility] approved criteria for sepsis (see below), verify if this documented diagnosis is still accurate. ___ Sepsis ruled out __X_ Sepsis present and treated, document detailed rationale and clinical impression in provider response below ___ Other, specify below Additional Provider Response: Meets sepsis criteria for this event, likely caused by bacterial translocation from colon References: Adult SIRS/Sepsis Screening Criteria SIRS Temp >38.3 C (100.9 F) or <36 (96.8 F) HR (pulse) >90 Respiratory rate >20 WBC > 12,000 or <4,000 or >10% bands Sepsis 2 of 4 SIRS criteria present AND suspected/confirmed source of infection Severe Sepsis Sepsis plus at least one sign of NEW hypoperfusion or organ dysfunction not limited to but may include: Lactate >2 mmol/L INR > 1.5 or aPTT >60 seconds Platelet count <100,000 ?L?1 Bilirubin >2 mg/dL Creatinine >2 mg/dL (if no documentation of renal failure) Urine output <0.5 mL/kg/hr x 2 hours Acute respiratory failure with new need for mechanical ventilation or noninvasive ventilation Altered mental status or Encephalopathy (new or acutely worsened due to infection) One or more reading(s) of hypotension prior to 30ml/kg fluid bolus (SBP< 90 mmHG or MAP< 65, or SBP decrease of > 40 mmHG from baseline) Septic Shock Severe sepsis patients with: Two or more readings of hypotension (SBP <90 or MAP< 65) after 30ml/kg fluid bolus, often requiring vasopressors or Lactate >=4 Sepsis References Centers for Medicare and Medicaid Services. Sepsis Bundle Project (SEP) Specifications Manual for National Hospital Inpatient Quality Measures Discharges 11-17-14 (4Q15) through 08-17-15(2Q16) 2011. The Joint Commission - Specifications Manual for National Hospital Inpatient Quality Measures. (n.d.). https://www.jointcommission.org/ Conchita Hill, Brenda Perales., Tlia Olmos. et al. Intensive Care Med (2013) 39: 165-228. Surviving Sepsis Campaign: International Guidelines for Management of Severe Sepsis and Septic Shock, 2012. https://doi.org/10.1007/g58924-005-0689-3 Brenda Perales., Milton Jones., Karthik Garrett. et al. Intensive Care Med (2003) 29: 530- 538. 2000 SCCM/ESICM/ACCP/ATS/SIS International Sepsis Definitions Conference https://doi.org/10.1007/q93267-873-8786-d From the ICD-10-CM Official Guidelines for Coding and Reporting, use of terms such as likely, suspected, possible, or probable (associated with a specific diagnosis that is being evaluated, monitored, or treated as if it exists) are acceptable and can be coded in the inpatient setting when documented at the time of discharge. This documentation will become part of the patient's medical record. Sincerely, BONIFACIO Rojo, RN Clinical Game Agent [facility] [email or web address] * Medical Student - Amanda Westfall - 12/06/2023 8:05 AM CDT Medicine Daily Progress Note Chief complaint: failure to thrive iso IBD with contained microperf Interval History: VSS, NSR on tele. Remains stable on broadened abx (vanc/zosyn w pseudomonal dosing), mIVF discontinued. Patient complaining of bilateral ear pain and throat pain with swallowing. Objective Vital Signs: 24hr Min/Max: Temp Min: 36.6 ??C (97.9 ??F) Max: 36.7 ??C (98.1 ??F) Pulse Min: 86 Max: 94 BP Min: 98/55 Max: 144/81 Resp Min: 18 Max: 20 SpO2 Min: 97 % Max: 99 % Tele showing only NSR. Intake/Output: mIVF: 50 cc/hr LR Intake/Output Summary (Last 24 hours) at 12/06/2023 0806 Last data filed at 12/05/2023 1658 Gross per 24 hour Intake 515.5 ml Output -- Net 515.5 ml Physical Exam: General appearance: no acute distress HEENT: NCAT, MMM, anicteric. Throat pink, without erythema. tonsils not enlarged, no exudates. Lungs: CTAB no w/r/r, non-labored Heart: RRR, S1, S2 normal, no murmur, rub or gallop. JVP not elevated, no LE edema. Abdomen: soft, abdominal fullness, stable compared to prior exams; bowel sounds normal. Stable LLQ pain to palpation. Extremities: extremities normal, warm and well-perfused, equal pulses. No mottling. Pedal pulses palpable. Skin: warm and dry Neurologic: No abnormal movements, non-focal exam Current Medications: Current Facility-Administered Medications: acetaminophen (TYLENOL) tablet 650 mg, 650 mg, oral, Q4H PRN, 650 mg at 12/05/232115 benzonatate (TESSALON) capsule 100 mg, 100 mg, oral, TID PRN, 100 mg at 12/05/232115 Carrier Fluids for Secondary Infusion - 0.9% Sodium Chloride, 30 mL, intravenous, PRN [Held by Provider] ciprofloxacin (CIPRO) tablet 500 mg, 500 mg, oral, BID - special, 500 mg at 12/04/23 0457 dextrose gel in packet 15 g, 15 g, oral, Q15 Min PRN OR dextrose (D10W) 10% bolus 250 mL, 250 mL, intravenous, Q15 Min PRN enoxaparin (LOVENOX) syringe 40 mg, 40 mg, subcutaneous, Daily-2100, 40 mg at 12/05/232114 folic acid (FOLVITE) tablet 1 mg, 1 mg, oral, Daily, 1 mg at 12/05/23 0849 glucagon injection 1 mg, 1 mg, intramuscular, Q30 Min PRN guaiFENesin ER (MUCINEX) extended release tablet 1,200 mg, 1,200 mg, oral, BID PRN insulin lispro (HumaLOG, ADMELOG) 100 unit/mL injection 0-10 Units, 0-10 Units, subcutaneous, TID with meals, 4 Units at 12/05/23 1243 insulin lispro (HumaLOG, ADMELOG) 100 unit/mL injection 0-5 Units, 0-5 Units, subcutaneous, Nightly, 1 Units at 12/05/232114 [Held by Provider] losartan (COZAAR) tablet 25 mg, 25 mg, oral, Daily, 25 mg at 12/04/23 1121 [Held by Provider] metroNIDAZOLE (FLAGYL) tablet 500 mg, 500 mg, oral, BID, 500 mg at 12/04/23 1122 multivitamin with folic acid 400 mcg tablet 1 tablet, 1 tablet, oral, Daily, 1 tablet at 12/05/23 0849 ondansetron (ZOFRAN) injection 4 mg, 4 mg, intravenous, Q4H PRN pantoprazole DR (PROTONIX) extended release tablet 40 mg, 40 mg, oral, Daily, 40 mg at 12/05/23 0849 phenoL (CHLORASEPTIC) 1.4 % oral spray 1 spray, 1 spray, mouth/throat, Q4H PRN, 1 spray at 058 piperacillin-tazobactam (ZOSYN) 4.5 gram/120 mL in sodium chloride 0.9% (premix) 4.5 g, 4.5 g, intravenous, Q6H DARIN, Last Rate: 240 mL/hr at 12/06/23 0518, 4.5 g at 12/06/23 0518 polyethylene glycol (MIRALAX) packet 17 g, 17 g, oral, Daily PRN potassium chloride ER (KLOR-CON) extended release tablet 10 mEq, 10 mEq, oral, Once pyridoxine (VITAMIN B6) tablet 100 mg, 100 mg, oral, Daily, 100 mg at 12/05/23 0848 ramelteon (ROZEREM) tablet 8 mg, 8 mg, oral, Nightly PRN sodium chloride 0.9% flush 0.5-20 mL, 0.5-20 mL, intra-catheter, PRN, 10 mL at 12/04/23 1857 thiamine (VITAMIN B1) tablet 100 mg, 100 mg, oral, Daily, 100 mg at 12/05/23 0848 vancomycin 750 mg/257.5 mL in sodium chloride 0.9% (premix) 750 mg, 15 mg/kg, intravenous, Q12H, 750 mg at 12/06/23 0519 Lab/Radiology/Diagnostic Review: Recent Labs Lab Units 12/05/23 2124 12/05/23 1109 12/04/23 2030 12/04/23 1758 12/04/23 1602 HEMOGLOBIN g/dL 7.8* 7.6* 7.6* 7.3* 9.8* HEMATOCRIT % 26.0* 25.5* 25.3* 24.4* 33.2* WBC K/cumm 12.0* 12.3* 24.2* 23.9* 24.1* PLATELETS K/cumm 446* 463* 483* 477* 760* Recent Labs Lab Units 12/05/23212312/04/23221812/04/23175712/04/23172312/01/23214511/30/23225411/29/23 205 SODIUM mmol/L 137 137 < > 135 < > 135 131* POTASSIUM PLASMA mmol/L 3.8 4.2 < > 4.4 < > 3.9 4.0 CHLORIDE mmol/L 105 105 < > 102 < > 100 101 CO2 mmol/L 26 22 < > 23 < > 25 24 ANIONGAP mmol/L 6 10 < > 10 < > 10 6 BUN SERUM mg/dL 17 18 < > 18 < > 10 12 CREATININE mg/dL 0.79 0.81 < > 0.83 < > 0.74 0.86 CALCIUM mg/dL 8.0* 8.1* < > 8.1* < > 8.4* 7.9* MAGNESIUM mg/dL 2.0 2.0 -- 2.5 -- 1.8 1.7 < > = values in this interval not displayed. Recent Labs Lab Units 12/05/23212312/04/23175712/04/23172312/01/23214511/30/232254 ALBUMIN g/dL 2.4* < > 2.5* < > 2.5* ALK PHOS Units/L -- -- 82 < > 78 AST Units/L -- -- 22 < > 16 ALT Units/L -- -- 8 < > 6* BILIRUBIN TOTAL mg/dL -- -- 0.3 < > 0.3 BILIRUBIN DIRECT mg/dL -- -- -- -- <0.2 < > = values in this interval not displayed. BCX 12/03: NGTD Assessment/Plan Ms. Russo is a 63 y.o. female with presents with failure to thrive, IBD with contained sigmoid microperf, adnexal mass, new cavitating pulmonary lesions admitted for coordination of care. Darius Russo has a complex constellation of symptoms without a clear unifying etiology at this point in time. Her weight loss and lung nodules in the setting of adnexal mass is concerning for ovarian malignancy, but secondary school registrar/onc evaluation of adnexal mass gives a low index of suspicion for primary ovarian malignancy, and biopsy of lung tissue was not suggestive of malignancy. Weight loss may be secondary to mass effect from ovarian cyst, complicated by malabsorption secondary to IBD. Liver and spleen abscesses may suggest bacterial translocation in the setting of Crohn's disease flare, with subsequent seeding of lung. Although infectious workup of lungs has been negative, patient had been on ant ibiotics for several weeks before those samples were taken. # SVT # Demand ischemia On 12/03 new, sudden onset tachyarrhythmia and hypertension following a bowel movement. EKG showed narrow complex tachycardia without P waves. Unable to terminate with vagal maneuvers, converted to sinus rhythm with adenosine and metoprolol. Patient has no cardiac history. Hyperthyroidism can predispose to SVT and patient has had multinodular goiter on imaging but TSH on 11/29 was 2.09. In the setting of new onset fever, suspect SVT was provoked by infection. Exponential troponin leak following SVT which is resolving (5->770->1000->1200->500->400). EKG reassuring and patient without any typical or atypical anginal symptoms. Suspect transient demand ischemia 2/2 tachyarrhythmia. - discontinue telemetry as patient has remained in NSR for 24+ hours. # Sepsis Patient meeting SIRS criteria (temp>100.4, HR>90, WBC>12) and has several possible sourcesof infection (sigmoid phlegmon and microperf, resolving liver/spleen abscesses, cavitary pulmonary nodules). Initial concern for progression of known sigmoid perforation and phlegmon, especially given temporality of sudden symptom onset following bowel movement, but abdominal exam not peritonitic and abdominal x ray (albeit not an upright KUB) without pneumoperitoneum. Additionally, CBC collectedminutes after symptom onset showed leukocytosis to 24 from 12, suggesting an earlier event. Possible explanation is transient bacterial translocation 2/2 IBD. Fever, hypotension, tachycardia resolvedsince broadening abx. - Narrow antibiotics back to cipro/flagyl as patient has been afebrile, HDS, and bacterial culturesNGTD. 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 Symptoms well controlled on mesalamine until early this summer, with onset of 5+ daily nonbloody diarrhea, fecal incontinence, 65 lb weight loss, poor appetite, early satiety. Imaging with perforated sigmoid diverticulitis, has previously been managed conservatively. Outpatient was treated with mesalamine suppositories at home, follows with Dr. Jung. CT CAP 11/25 with worsening contained perf. LLQ tender on exam but not peritonitic. - Antibiotic history: zosyn (10/02-10/03, 11/03-11/05), bactrim (10/04-11/03), flagyl (10/04-11/03), augmentin (10/04-11/03), cipro (11/06-12/03), flagyl (11/06-12/03) vanc (12/03-), zosyn (12/03-) - GI consult: patient not a candidate for infliximab at this time given active infection with liverand spleen microabscesses, sigmoid phlegmon, and suspected lung infection. She is likely as medically optimized for surgery as is reasonable. - Colorectal surgery consult: TAC with concurrent secondary school registrar/onc resection of adnexal mass on 12/16 # Pulmonary nodules # Pleural effusion CT 11/25 with cavitating L upper lobe nodules, interlobular septal line thickening, regional lymphadenopathy, L pleural effusion and pleural thickening. Asymptomatic aside from cough x 1 week prior toadmission. No history of immunomodulatory treatment. Low suspicion for malignancy given that recent imaging in September shows no lung nodules. BAL 11/27. Workup for bacterial, mycobacterial, fungal, and viral etiologies has been negative thus far. Surgical pathology and cytology results revealing of organizing lung injury with a broad possible differential, but no evidence of malignancy or opportunistic infection. - Pulmonology c/s: signed off. - ID consult: sending broad PCR and sequencing from lung biopsies. Rec initiating ANCA vasulitis work up, which is pending. - Continue tessalon pearls TID PRN for cough # Liver and spleen microabscesses Noted on recent imaging. Recent balaji in August, per op note GB was full of stones and difficult to grasp but low suspicion for retained gallstone as nothing seen on imaging and microabscesses are intraparenchymal. During October admission IR consulted, abscesses too small to drain. Improved on 11/25 CT. Likely 2/2 bacterial translocation iso IBD flare. - abx as above # Adnexal mass Large multiseptated O RADS 3 lesion, likely arising from the right ovary found incidentally on imaging in August. Following with secondary school registrar onc, Dr. Rhodes. 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 - Considering colectomy with CRS so will also consult secondary school registrar/onc for consideration of concurrent cyst removal. # Severe Chronic Malnutrition 65 lb weight loss since July. Meets ASPEN criteria for severe chronic malnutrition. PO intake improved throughout admission. 2 lb weight loss from 11/24 admit to 12/03. - nutrition consult - Thiamine 500 IV x 3 loading then 100 mg daily - daily folic acid - daily multivitamin - daily B6 100 mg - patient may require supplemental enteral nutrition while she works up to consuming 50-60% of energy needs. # Normocytic anemia # Secondary hemochromatosis Iron deposition in liver noted incidentally on recent imaging. Elevated ferritin to 1868 iso acute inflammatory process. History of 3 lifetime blood transfusions and several recent iron infusions foranemia. However, given that anemia has been normocytic and patient has been chronically ill for several months, favor anemia of chronic disease over iron deficiency as etiology. - nutritional optimization, avoid further iron supplementation if possible - q3 day T&S, hgb >7. Consented. # T2DM A1C in October was 5.7. Managed on metformin 500 q24. - SSI # HTN -losartan 25 (cont home med) Code - Fall Diet - Carb consistent DVT prophylaxis - subq lovenox, SCDs. Note that patient is at increased risk of VTE 2/2 IBD. Dispo - Patient will likely remain inpatient for monitoring until surgery on 12/16 Cosigned by Álvaro Radford MD at 12/06/2023 1:02 PM CDT * Plan of Care - Johana Ayoub - 12/06/2023 6:20 AM CDT Goals: Clinical Goals for the Shift: safety, comfort, VSS, Monitor and treat BG, monitor labs, IV fluids Summary: Monitor vitals and labs, respiration even unlabored, room air. No signs of pain or distress noted this shift. Pt medicated, tolerated well. Pt is transferred to new room orient pt to surrounding. Call light within reach, safety measures in place. Problem: Discharge Planning Goal: Understanding discharge needs will improve Outcome: Progressing Problem: Fall Risk Goal: Ability to state ways to decrease the risk of falls will improve Outcome: Progressing Goal: Will remain free from falls Outcome: Progressing Goal: Will remain free from injury from falls Outcome: Progressing Problem: Lack of Knowledge Goal: Ability to describe self care measures that may prevent or decrease complications related to Type 2 Diabetes will improve Outcome: Progressing Problem: Health Nutrition Goal: Nutritional intake and knowledge related to Diabetes will improve Outcome: Progressing Problem: Neurosensory Goal: Achieves maximal functionality and self care Outcome: Progressing Problem: Musculoskeletal Goal: Return mobility to safest level of function Outcome: Progressing Goal: Maintain proper alignment of affected body part Outcome: Progressing Goal: Return ADL status to a safe level of function Outcome: Progressing Goal: Ability to perform activities at highest level will improve Outcome: Progressing Goal: Mobility, ROM and muscle strength will improve Outcome: Progressing Problem: Gastrointestinal Goal: Minimal or absence of nausea and vomiting Outcome: Progressing Goal: Maintains or returns to baseline bowel function Outcome: Progressing Goal: Maintains adequate nutritional intake Outcome: Progressing Problem: Metabolic/Fluid and Electrolytes Goal: Electrolytes maintained within normal limits Outcome: Progressing Goal: Glucose maintained within prescribed range Outcome: Progressing Problem: Lack of Knowledge Goal: Ability to develop a pain control plan will improve Outcome: Progressing Problem: Medication Goal: Satisfaction with pain management medication regimen will improve Outcome: Progressing Problem: Sensory Goal: Ability to identify factors that increase pain levels will improve while working to decrease the patient's pain levels Outcome: Progressing Problem: Coping Goal: Ability to cope will improve Outcome: Progressing Problem: Health Behavior Goal: Identification of resources available to assist in meeting health care needs will improve Outcome: Progressing Problem: Respiratory Goal: Achieves optimal ventilation and oxygenation Outcome: Progressing Goal: Ability to maintain a clear airway will improve Outcome: Progressing Problem: Skin/Tissue Integrity Goal: Incisions, wounds, or drain sites healing without S/S of infection Outcome: Progressing Problem: Infection Goal: Absence of infection during hospitalization Outcome: Progressing Problem: Isolation Lack of Knowledge Goal: Knowledge of risk factors and measures for prevention of condition will improve Outcome: Progressing Problem: Isolation Physical Regulation Goal: Isolation- Spread of further infection will be prevented Outcome: Progressing Goal: Isolation- Complications related to the disease process, condition, or treatment will be avoided or minimized. Outcome: Progressing Problem: Hematologic Goal: Maintains hematologic stability Outcome: Progressing Problem: Skin Integrity Impairment Risk Goal: Mobility will improve Outcome: Progressing Goal: Understanding of ways to prevent future skin breakdown will improve Outcome: Progressing Goal: Nutritional status will improve Outcome: Progressing Goal: Risk for impaired skin integrity will decrease Outcome: Progressing Problem: Genitourinary Goal: Absence of urinary retention Outcome: Progressing * Plan of Andres - Guerita Banks RN - 12/05/2023 5:31 PM CDT Problem: Discharge Planning Goal: Understanding discharge needs will improve Outcome: Progressing Flowsheets (Taken 12/05/2023 1731) Understanding of discharge needs will improve: Identify discharge barriers Collaborate with case management interdisciplinary team Discuss information regarding discharge instructions Problem: Fall Risk Goal: Ability to state ways to decrease the risk of falls will improve Outcome: Progressing Goal: Will remain free from falls Outcome: Progressing Goal: Will remain free from injury from falls Outcome: Progressing Problem: Skin Integrity Impairment Risk Goal: Mobility will improve Outcome: Progressing Goal: Understanding of ways to prevent future skin breakdown will improve Outcome: Progressing Goal: Nutritional status will improve Outcome: Progressing Goal: Risk for impaired skin integrity will decrease Outcome: Progressing Problem: Lack of Knowledge Goal: Ability to describe self care measures that may prevent or decrease complications related to Type 2 Diabetes will improve Outcome: Progressing Problem: Health Nutrition Goal: Nutritional intake and knowledge related to Diabetes will improve Outcome: Progressing Problem: Neurosensory Goal: Achieves maximal functionality and self care Outcome: Progressing Problem: Musculoskeletal Goal: Return mobility to safest level of function Outcome: Progressing Goal: Maintain proper alignment of affected body part Outcome: Progressing Goal: Return ADL status to a safe level of function Outcome: Progressing Goal: Ability to perform activities at highest level will improve Outcome: Progressing Goal: Mobility, ROM and muscle strength will improve Outcome: Progressing Problem: Gastrointestinal Goal: Minimal or absence of nausea and vomiting Outcome: Progressing Goal: Maintains or returns to baseline bowel function Outcome: Progressing Goal: Maintains adequate nutritional intake Outcome: Progressing Problem: Metabolic/Fluid and Electrolytes Goal: Electrolytes maintained within normal limits Outcome: Progressing Goal: Glucose maintained within prescribed range Outcome: Progressing Problem: Respiratory Goal: Achieves optimal ventilation and oxygenation Outcome: Progressing Goal: Ability to maintain a clear airway will improve Outcome: Progressing Problem: Skin/Tissue Integrity Goal: Incisions, wounds, or drain sites healing without S/S of infection Outcome: Progressing Problem: Infection Goal: Absence of infection during hospitalization Outcome: Progressing Problem: Hematologic Goal: Maintains hematologic stability Outcome: Progressing Problem: Genitourinary Goal: Absence of urinary retention Outcome: Progressing Problem: Lack of Knowledge Goal: Ability to develop a pain control plan will improve Outcome: Progressing Problem: Sensory Goal: Ability to identify factors that increase pain levels will improve while working to decrease the patient's pain levels Outcome: Progressing Problem: Coping Goal: Ability to cope will improve Outcome: Progressing Problem: Health Behavior Goal: Identification of resources available to assist in meeting health care needs will improve Outcome: Progressing Problem: Isolation Lack of Knowledge Goal: Knowledge of risk factors and measures for prevention of condition will improve Outcome: Progressing Problem: Isolation Physical Regulation Goal: Isolation- Spread of further infection will be prevented Outcome: Progressing Goal: Isolation- Complications related to the disease process, condition, or treatment will be avoided or minimized. Outcome: Progressing Goals: Clinical Goals for the Shift: safety, comfort, VSS, Monitor and treat BG, monitor labs, IV fluids Summary: Patient alert and oriented. Up SBA in room. Tylenol given for complaint of bilateral ear pain. BG monitored and treated as ordered. IV antibiotics given as ordered. * Provider Query - Eamon Hanks MD - 12/05/2023 5:28 PM CDT THIS IS A VALIDATION QUERY - ADDITIONAL CLINICAL INFORMATION REQUESTED Clinical Indicators/Treatments: 11-30 - 12/01 24 Hour Min/Max: Temp Min: 36.7 ??C (98 ??F) Max: 36.8 ??C (98.3 ??F) Pulse Min: 88 Max: 102 BP Min: 126/63 Max: 149/71 Resp Min: 18 Max: 18 SpO2 Min: 97 % Max: 98 % on Room air 11/24 HP: 63 y.o. female...presenting as direct admit from GI clinic for progressive weight loss. 11/26 Pulm: Chest: crackles on left, decreased left basilar lung sounds, clear on right 12/02 Attestation: Today, I am treating the patient for acute hypoxemic respiratory failure w lunginfiltrates...I independently interpreted the 11/28/2023 CXR which shows multiple left-sided pulmonary nodules and post bronchoscopy changes, and small left pleural effusion Treatment: Lab/VS monitoring Bronchoscopy Ciproflaxin, Flagyl: started 11/25 Indications of Use: Abdominal/Pelvic Infection Based on the [facility] approved criteria for respiratory failure (see below), verify if this documented diagnosis is still accurate. x Acute Hypoxemic Respiratory Failure ruled out ___ Acute Hypoxemic Respiratory Failure present and treated, document detailed rationale and clinical impression in provider response below ___ Chronic Respiratory Failure only ___ Other explanation of clinical findings, specify below Additional Provider Response: 12/05/2023 ADDENDUM CORRECTION to 12/03/2023 diagnoses in attestation (see bold and strikethrough) Today, I am treating the patient for lung infiltrates and cavitary lung disease, which is in severeexacerbation, progression, or experiencing treatment side effects, as evidenced by the symptoms andsigns, the need for hospitalization, and additional testing and treatment as described in the note. The lung infiltrates and cavitary lung disease pose a threat to the patient's life and bodily function in the near-term. Eamon Hanks MD References: Respiratory Failure Screening Criteria Acute Respiratory Failure PATIENT DOES NOT NEED TO MEET ALL CRITERIA, INTUBATION IS NOT REQUIRED. Supplemental Oxygen New supplemental O2 greater than or equal to 40 percent (5 liters/minute per nasal cannula) or New oxygen requirement in setting of 1 or more of the below results or vitals, Results or Vitals (1 or more of the following) pCO2 greater than 50 and pH less than 7.35 pO2 at or below 55 mmHg or SpO2 (pulse oximetry) less than 88% on RA pO2 decrease or pCO2 increase by 10 mmHg from baseline if known P/F ratio (pO2/FiO2) less than 300 Other signs and symptoms may include: Tachypnea, dyspnea, shortness of breath, wheezing Air hunger Use of accessory muscles of respiration Inability to speak in full sentences Cyanosis or pallor Anxiety or restlessness Positioning of the patient???s body (for example, tripod breathing) Chronic Respiratory Failure Dependence on continuous (24 hours a day) home O2 or non-invasive mechanical ventilation (BiPAP, AVAPS, etc.) Acute on Chronic Respiratory Failure Exacerbation or decompensation of chronic respiratory failure recognized by any of the following: pCO2 greater than 50 mmHg + pH less than 7.35 Increase in baseline pCO2 (if known) by 10 mmHg or more pO2 less than 55 mmHg or SpO2 less than 88% on patient???s baseline oxygen rate or higher Worsening dyspnea requiring an increase in chronic supplemental oxygen Greater hypoxemia (decreased pO2 or SpO2 from baseline, if known) If provider believes patient has respiratory failure in the absence of above clinical indicators, please document rationale and clinical impression in detail Respiratory Failure References [employer] Hospitalist Dec 2012 Coding Clinics: 3rd Q 1987, p 7 and 2nd Q 1989, p.20 [email or web address]-oyn-xqhpccyzf/[email or web address]-learning-network-[email or web address] ucts/downloads/didp-ewclds-doetugp-text-[email or web address] From the ICD-10-CM Coding Guidelines, use of terms such as likely, suspected, possible, or probable(associated with a specific diagnosis that is being evaluated, monitored, or treated as if it exists) are acceptable and can be coded in the inpatient setting when documented at the time of discharge. This documentation will become part of the patient's medical record. Sincerely, BONIFACIO Rojo, RN Clinical Game Agent [facility] [email or web address] * Consults, Subsequent - Fernando Dooley MD - 12/05/2023 4:10 PM CDT Private GI Subsequent Consult Subjective Chief complaint of FTT, contained sigmoid perf Interval History: - After BM, pt febrile and with SIRS criteria. Abx broadended - PET/CT with increased size of phlegmon at distal descending colon. Decrease in size of pulm opacities with mild FDG uptake, resolution of hepatic/splenic abscesses - Feels back to baseline this AM Objective Physical Exam: Vitals: 24hr Min/Max: Temp Min: 36.6 ??C (97.9 ??F) Max: 37.5 ??C (99.5 ??F) Pulse Min: 86 Max: 110 BP Min: 89/62 Max: 127/72 Resp Min: 18 Max: 20 SpO2 Min: 95 % Max: 99 % Most Recent : Vitals: 12/05/23 1256 BP: 98/55 Pulse: 86 Resp: 20 Temp: 36.6 ??C (97.9 ??F) SpO2: 99% Physical exam: Constitutional: NAD. In bed. Eyes: EOMI grossly intact. Anicteric ENT: NCAT. moist mucus membranes. Lungs: Breathing comfortably on RA. Unlabored. Trachea midline. Cardiovascular: RRR, normal S1 and S2. GI: Soft, NT, ND Skin: No new rashes, lesions or bruises Extremities: Normal without edema or cyanosis Neuro: Alert. MAEW. Assessment/Plan Principal Problem: Physical deconditioning Active Problems: Splenic abscess Pulmonary nodule Hepatic abscess Severe malnutrition (CMS/HCC) Consolidation of left upper lobe of lung (CMS/HCC) (HCC) Darius Russo is a 63 y.o. female with PMH HTN, T2DM, s/p cholecystectomy, a large adnexal mass c/f malignancy, and suspected crohn???s colitis who presents for contained sigmoid perf and FTT. 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 She was admitted with the plan to initiate IFX, however she had new symptoms of a cough and CT showing cavitary pulmonary nodules as well as increased pericolonic fluid collection. Both of these findings pose significant barriers to initiating abx. While mycobacterial/fungal infection causing thesecavitary lesions in the lung are still possible, their interval improvement without directed therapy is reassuring. Progressive worsening of her sigmoid phlegmon with escalation to IV abx requirementthis admission however still poses a contraindication to IFX initiation. She has been evaluated by CRS this admission. Tentative plan for TAC 12/16. Recommendations: - f/u infectious/bronch studies - Appreciate CRS/Business Office Representative Onc consults. Tentative plan for TAC and adnexal mass resection on 12/16 - abx per primary/ID - Cont optimization of nutritional status while inpatient. TPN not viable given intraabdominal fluid collection with mircroabscesses and possible infectious process involving lungs We will continue to follow-up with you. Thank you for involving us in the care of this patient. If you have any questions, please call the private GI pager during weekdays or the [facility] phone during after hours and weekends. Fernando Dooley MD GI Fellow * Medical Student - Warnerarslankeyanna Amanda - 12/05/2023 8:02 AM CDT Images from the original note were not included. Medicine Daily Progress Note Chief complaint: failure to thrive iso IBD with contained microperf Interval History: Yesterday: - PET with improved liver/spleen abscesses, improved cavitary nodules in L lung, worsening sigmoid colon phlegmon, no FDG uptake by adnexal cyst. - 4 pm patient had sudden onset of tachycardia to 170s, hypertension to 160s/110s, SpO2>95% ORA,tachypnea, rigors after having a bowel movement. Patient complaining of new L abdominal pain, abd exam unchanged from baseline, benign. Patient anxious and pale. New onset mottling of BLE, pedal pulses palpable. EKG showed SVT. Vagal maneuvers unsuccessful, ACT called. ACT labs significant for new leukocytosis to 24<12 with neutrophilic predominance, lactate 1.9, troponin 5, VBG pH 7.3, pCO2 48, pO2 35. 6 mg adenosine administered, then 5 mg metoprolol with conversion to sinus tachycardia to120 bpm. 1L NS bolus and 2g mag administered. Rigors, paleness, lower extremity mottling resolved. Chest x ray unremarkable. KUB without pneumoperitoneum. Patient then became hypotensive with MAPs to60s, persistent sinus tach to 120, SpO2 90-95%, febrile to 101.9. Broadened abx from cipro/flagyl to vanc/zosyn and started mIVF with LR 50 cc/hr. - 2 hour troponin resulted with delta trop 770. No chest pain, pressure, tightness, SOB. Patient comfortable, sitting up, eating. EKG with resolution of peaked T waves seen immediately following SVT,reassuring against NC. 4hr and 6hr troponins showed plateau. This morning: - hypotension and tachycardia resolved overnight, fever resolved without administration of antipyretics. - No chills, sweats, chest pain, palpitations, SOB, or abdominal pain overnight. Continuing to tolerate PO well. Looser stools after mIVF started. Stable cough. - Patient slept well, feeling much better this morning. She and are grateful they were in the hospital when SVT happened. Yesterday she had expressed the desire to discharge and return for CRS on 12/16, now favoring remaining inpatient until then. Today: - Patient complaining of bilateral ear pain. - Patient remains HDS. Bcx NGTD. Leukocytosis resolved to prior baseline of 12. Objective Vital Signs: Hypotension, tachycardia, tachypnea, and fever resolved overnight. Sinus rhythm on tele. 24hr Min/Max: Temp Min: 36.6 ??C (97.9 ??F) Max: 37.5 ??C (99.5 ??F) Pulse Min: 86 Max: 152 BP Min: 89/62 Max: 160/101 Resp Min: 18 Max: 20 SpO2 Min: 95 % Max: 100 % Tele: Intake/Output: mIVF: 50 cc/hr LR Intake/Output Summary (Last 24 hours) at 12/05/2023 1509 Last data filed at 12/05/2023 1242 Gross per 24 hour Intake 1497.5 ml Output 100 ml Net 1397.5 ml Physical Exam: General appearance: no acute distress HEENT: NCAT, MMM, anicteric Lungs: CTAB no w/r/r, non-labored Heart: RRR, S1, S2 normal, no murmur, rub or gallop. JVP not elevated, no LE edema. Abdomen: soft, abdominal fullness, stable compared to prior exams; bowel sounds normal. Stable LLQ pain to palpation. Extremities: extremities normal, warm and well-perfused, equal pulses. No mottling. Pedal pulses palpable. Skin: warm and dry Neurologic: No abnormal movements, non-focal exam Current Medications: Current Facility-Administered Medications: acetaminophen (TYLENOL) tablet 650 mg, 650 mg, oral, Q4H PRN, 650 mg at 12/05/23 1302 benzonatate (TESSALON) capsule 100 mg, 100 mg, oral, TID PRN, 100 mg at 12/05/23 0848 Carrier Fluids for Secondary Infusion - 0.9% Sodium Chloride, 30 mL, intravenous, PRN [Held by Provider] ciprofloxacin (CIPRO) tablet 500 mg, 500 mg, oral, BID - special, 500 mg at 12/04/23 0457 dextrose gel in packet 15 g, 15 g, oral, Q15 Min PRN OR dextrose (D10W) 10% bolus 250 mL, 250 mL, intravenous, Q15 Min PRN enoxaparin (LOVENOX) syringe 40 mg, 40 mg, subcutaneous, Daily-2100, 40 mg at 12/04/232005 folic acid (FOLVITE) tablet 1 mg, 1 mg, oral, Daily, 1 mg at 12/05/23 0849 glucagon injection 1 mg, 1 mg, intramuscular, Q30 Min PRN guaiFENesin ER (MUCINEX) extended release tablet 1,200 mg, 1,200 mg, oral, BID PRN insulin lispro (HumaLOG, ADMELOG) 100 unit/mL injection 0-10 Units, 0-10 Units, subcutaneous, TID with meals, 4 Units at 12/05/23 1243 insulin lispro (HumaLOG, ADMELOG) 100 unit/mL injection 0-5 Units, 0-5 Units, subcutaneous, Nightly [Held by Provider] losartan (COZAAR) tablet 25 mg, 25 mg, oral, Daily, 25 mg at 12/04/23 1121 [Held by Provider] metroNIDAZOLE (FLAGYL) tablet 500 mg, 500 mg, oral, BID, 500 mg at 12/04/23 1122 multivitamin with folic acid 400 mcg tablet 1 tablet, 1 tablet, oral, Daily, 1 tablet at 12/05/23 0849 ondansetron (ZOFRAN) injection 4 mg, 4 mg, intravenous, Q4H PRN pantoprazole DR (PROTONIX) extended release tablet 40 mg, 40 mg, oral, Daily, 40 mg at 12/05/23 0849 phenoL (CHLORASEPTIC) 1.4 % oral spray 1 spray, 1 spray, mouth/throat, Q4H PRN, 1 spray at 058 piperacillin-tazobactam (ZOSYN) 4.5 gram/120 mL in sodium chloride 0.9% (premix) 4.5 g, 4.5 g, intravenous, Q6H DARIN, Last Rate: 240 mL/hr at 12/05/23 1242, 4.5 g at 12/05/23 1242 polyethylene glycol (MIRALAX) packet 17 g, 17 g, oral, Daily PRN pyridoxine (VITAMIN B6) tablet 100 mg, 100 mg, oral, Daily, 100 mg at 12/05/23 0848 ramelteon (ROZEREM) tablet 8 mg, 8 mg, oral, Nightly PRN sodium chloride 0.9% bolus 1,000 mL, 1,000 mL, intravenous, Once sodium chloride 0.9% flush 0.5-20 mL, 0.5-20 mL, intra-catheter, PRN, 10 mL at 12/04/23 1857 thiamine (VITAMIN B1) tablet 100 mg, 100 mg, oral, Daily, 100 mg at 12/05/23 0848 vancomycin 750 mg/257.5 mL in sodium chloride 0.9% (premix) 750 mg, 15 mg/kg, intravenous, Q12H, 750 mg at 12/05/23 0512 Lab/Radiology/Diagnostic Review: Recent Labs Lab Units 12/05/23 1109 12/04/23 2030 12/04/23 1758 12/04/23 1602 12/04/23 0019 HEMOGLOBIN g/dL 7.6* 7.6* 7.3* 9.8* 7.9* HEMATOCRIT % 25.5* 25.3* 24.4* 33.2* 25.9* WBC K/cumm 12.3* 24.2* 23.9* 24.1* 12.6* PLATELETS K/cumm 463* 483* 477* 760* 478* Recent Labs Lab Units 12/04/23 2219 12/04/23 1758 12/04/23 1724 12/01/23 2146 11/30/23 2255 11/29/23 2051 11/29/23 0046 SODIUM mmol/L 137 < > 135 < > 135 131* 135 POTASSIUM PLASMA mmol/L 4.2 < > 4.4 < > 3.9 4.0 4.3 CHLORIDE mmol/L 105 < > 102 < > 100 101 101 CO2 mmol/L 22 < > 23 < > 25 24 28 ANIONGAP mmol/L 10 < > 10 < > 10 6 6 BUN SERUM mg/dL 18 < > 18 < > 10 12 15 CREATININE mg/dL 0.81 < > 0.83 < > 0.74 0.86 0.82 CALCIUM mg/dL 8.1* < > 8.1* < > 8.4* 7.9* 8.4* MAGNESIUM mg/dL 2.0 -- 2.5 -- 1.8 1.7 2.0 < > = values in this interval not displayed. Recent Labs Lab Units 12/04/23 1758 12/04/23 1724 12/01/23 2146 11/30/23 2255 ALBUMIN g/dL 2.4* 2.5* < > 2.5* ALK PHOS Units/L -- 82 < > 78 AST Units/L -- 22 < > 16 ALT Units/L -- 8 < > 6* BILIRUBIN TOTAL mg/dL -- 0.3 < > 0.3 BILIRUBIN DIRECT mg/dL -- -- -- <0.2 < > = values in this interval not displayed. Infectious workup: - Blood cultures 11/26: NGTD - mycobacterial AFB bcx 11/26: NGTD - Mold blood culture 11/28: NGTD - Aspergillus galactomannan antigen 11/27: negative - Blastomyces antibody blood 11/26: negative - Histoplasma antibody blood 11/26: in process - Histoplasma antigen urine: negative - Cryptococcal antigen blood 11/26: negative - Giardia antigen stoop 10/03: negative - Cryptosporidium antigen 10/03: negative - Stool O&P 10/04: negative - HIV 11/26: negative - C. diff stool 11/25: negative - RPP 11/24: negative - T Spot 10/26: negative - EBV 10/26: positive nuclear ab, positive IgG, negative IgM - Adenovirus PCR BAL: negative - Legionella culture BAL 11/27: pending - AFB stain BAL L upper lobe: negative - fungal culture BAL 11/27: NGTD - Pneumocystis DFA BAL: no p. Jirovecii - Aerobic culture and gram stain L upper lobe washing: oropharyngeal contamination - CMV PCR: negative - Pneumonia PCR: negative Imaging: PET/CT 12/03: 1. Slight interval increase in size of [...] focus of elevated FDG uptake likely represents aprimary ovarian/fallopian tube neoplasm, which could be benign, borderline, or malignant. 5. Hypermetabolic soft tissue tissue nodule in the pelvic peritoneum and within a fat-containing umbilical hernia, which may be infectious/inflammatory in nature, although malignancy cannot be excluded. XR Abdomen AP 12/03: Normal bowel gas pattern. No evidence of pneumoperitoneum on supine images, although supine images are insensitive for pneumoperitoneum. If concern for perforation persists, recommend upright abdominal CT evaluation XR Chest 12/03: Moderate left pleural effusion with associated atelectasis has slightly increased compared to the prior chest radiograph. Small amount of right pleural fluid is better characterized by the PET/CT of 12/04/2023. Multiple nodules in the left lung are also better characterized by PET/CT of 12/04/2023. No pneumothorax. Stable cardiomediastinal silhouette. Pathology: Surgical Pathology, L upper lobe biopsy: Sections show alveolated lung parenchyma with widen septae, increased interstitial inflammatory infiltration, type II pneumonocyte hyperplasia, increased alveolar foamy macrophages and rare microthrombi. Bronchiolitis with predominant chronic inflammation is also noted. We do not see definitive evidence of vasculitis/endotheliolitis, viral cytopathic changes, granulomatous inflammation, necrosis or malignancy. Special stains for GMS, AFB,and trichrome were performed with proper controls. GMS and AFB stains show no fungal organisms or acid-fast bacteria. The trichrome stain shows no significant increase of interstitial fibrosis. Overall the findings are those of organizing lung injury, with the differential diagnosis includinginfectious etiology, autoimmune, or drug-induced. Correlation with imaging findings and microbiology study is strongly recommended. Cytology, BAL fluid, Left: - Negative for malignancy or opportunistic infection Assessment/Plan Ms. Russo is a 63 y.o. female with presents with failure to thrive, IBD with contained sigmoid microperf, adnexal mass, new cavitating pulmonary lesions admitted for coordination of care. Darius Russo has a complex constellation of symptoms without a clear unifying etiology at this point in time. Her weight loss and lung nodules in the setting of adnexal mass is concerning for ovarian malignancy, but secondary school registrar/onc evaluation of adnexal mass gives a low index of suspicion for primary ovarian malignancy, and biopsy of lung tissue was not suggestive of malignancy. Weight loss may be secondary to mass effect from ovarian cyst, complicated by malabsorption secondary to IBD. Liver and spleen abscesses may suggest bacterial translocation in the setting of Crohn's disease flare, with subsequent seeding of lung. Although infectious workup of lungs has been negative, patient had been on ant ibiotics for several weeks before those samples were taken. # SVT # Demand ischemia On 12/03 new, sudden onset tachyarrhythmia and hypertension following a bowel movement. EKG showed narrow complex tachycardia without P waves. Unable to terminate with vagal maneuvers, converted to sinus rhythm with adenosine and metoprolol. Patient has no cardiac history. Hyperthyroidism can predispose to SVT and patient has had multinodular goiter on imaging but TSH on 11/29 was 2.09. In the setting of new onset fever, suspect SVT was provoked by infection. Exponential troponin leak following SVT which is resolving (5->770->1000->1200->500->400). EKG reassuring and patient without any typical or atypical anginal symptoms. Suspect transient demand ischemia 2/2 tachyarrhythmia. # Sepsis Patient meeting SIRS criteria (temp>100.4, HR>90, WBC>12) and has several possible sourcesof infection (sigmoid phlegmon and microperf, resolving liver/spleen abscesses, cavitary pulmonary nodules). Initial concern for progression of known sigmoid perforation and phlegmon, especially given temporality of sudden symptom onset following bowel movement, but abdominal exam not peritonitic and abdominal x ray (albeit not an upright KUB) without pneumoperitoneum. Additionally, CBC collectedminutes after symptom onset showed leukocytosis to 24 from 12, suggesting an earlier event. Possible explanation is transient bacterial translocation 2/2 IBD. Fever, hypotension, tachycardia resolvedsince broadening abx. - vancomycin 750 IV BID - vanc trough 12/05 following pm dose - zosyn 4.5 g (pseudomonal dosing) IV q6 # IBD (favor CD) # Contained Microperforation of Sigmoid Colon UC diagnosed 2022, GI now suspecting CD. Symptoms well controlled on mesalamine until early this summer, with onset of 5+ daily nonbloody diarrhea, fecal incontinence, 65 lb weight loss, poor appetite, early satiety. Imaging with perforated sigmoid diverticulitis, has previously been managed conservatively. Outpatient was treated with mesalamine suppositories at home, follows with Dr. Jung. CT CAP 11/25 with worsening contained perf. LLQ tender on exam but not peritonitic. - Antibiotic history: zosyn (10/02-10/03, 11/03-11/05), bactrim (10/04-11/03), flagyl (10/04-11/03), augmentin (10/04-11/03), cipro (11/06-12/03), flagyl (11/06-12/03) vanc (12/03-), zosyn (12/03-) - GI consult: patient not a candidate for infliximab at this time given active infection with liverand spleen microabscesses, sigmoid phlegmon, and suspected lung infection. She is likely as medically optimized for surgery as is reasonable. - Colorectal surgery consult: TAC with concurrent secondary school registrar/onc resection of adnexal mass on 12/16 # Pulmonary nodules # Pleural effusion CT 11/25 with cavitating L upper lobe nodules, interlobular septal line thickening, regional lymphadenopathy, L pleural effusion and pleural thickening. Asymptomatic aside from cough x 1 week prior toadmission. No history of immunomodulatory treatment. Low suspicion for malignancy given that recent imaging in September shows no lung nodules. BAL 11/27. Workup for bacterial, mycobacterial, fungal, and viral etiologies has been negative thus far. Surgical pathology and cytology results revealing of organizing lung injury with a broad possible differential, but no evidence of malignancy or opportunistic infection. - Pulmonology c/s: signed off. - ID consult: sending broad PCR and sequencing from lung biopsies. Rec initiating ANCA vasulitis work up. - Continue tessalon pearls TID PRN for cough # Liver and spleen microabscesses Noted on recent imaging. Recent balaji in August, per op note GB was full of stones and difficult to grasp but low suspicion for retained gallstone as nothing seen on imaging and microabscesses are intraparenchymal. During October admission IR consulted, abscesses too small to drain. Improved on 11/25 CT. Likely 2/2 bacterial translocation iso IBD flare. - abx as above # Adnexal mass Large multiseptated O RADS 3 lesion, likely arising from the right ovary found incidentally on imaging in August. Following with secondary school registrar onc, Dr. Rhodes. 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 - Considering colectomy with CRS so will also consult secondary school registrar/onc for consideration of concurrent cyst removal. # Severe Chronic Malnutrition 65 lb weight loss since July. Meets ASPEN criteria for severe chronic malnutrition. PO intake improved throughout admission. - nutrition consult - Thiamine 500 IV x 3 loading then 100 mg daily - daily folic acid - daily multivitamin - daily B6 100 mg - patient may require supplemental enteral nutrition while she works up to consuming 50-60% of energy needs. - Folate and B12 levels wnl so no need to supplement at this time. - Measure weight today. # Normocytic anemia # Secondary hemochromatosis Iron deposition in liver noted incidentally on recent imaging. Elevated ferritin to 1868 iso acute inflammatory process. History of 3 lifetime blood transfusions and several recent iron infusions foranemia. However, given that anemia has been normocytic and patient has been chronically ill for several months, favor anemia of chronic disease over iron deficiency as etiology. - nutritional optimization, avoid further iron supplementation if possible - q3 day T&S, hgb >7. Consented. # T2DM A1C in October was 5.7. Managed on metformin 500 q24. - SSI # HTN -losartan 25 (cont home med) Code - Fall Diet - Carb consistent DVT prophylaxis - subq lovenox, SCDs. Note that patient is at increased risk of VTE 2/2 IBD. Dispo - Planning for outpatient surgery so patient is medically ready to discharge pending any additional workup consulting teams would like to obtain. Cosigned by Álvaro Radford MD at 12/06/2023 8:14 AM CDT * Plan of Care - Yuridia Atkinson RN - 12/04/2023 10:57 PM CDT Goals: Safety & comfort, labs, monitoring, pain management, HR & BP control IV AB, IVF. Summary: Safety measures applied, needs attended, frequent rounds done, pain assessed, monitored for clinical changes, kept on continuous LR, maintained a calm & restful environment. * Summary of Treatment Recommendations Non-Billable - Marlene Pierre MD - 12/04/2023 5:47 PM CDT PULMONARY SIGN OFF NOTE The pulmonary service will sign off. Final Diagnosis and Brief Pulmonary Hospital Course: Darius Russo is a 63 yo female with history of IBD, adnexal mass, complicated diverticulitis with contained perforation, and HTN who presented with weight loss and cough. Found to have leukocytosis and CT chest with FRANKLIN peribronchial opacities with septal thickening along with left pleural effusion and LLL collapse/atelectasis. Pulmonary consulted for evaluation of the opacities. Bronch with BAL and TBBX of lingula completed 11/27 showing neutrophil predominance, bacterial cultures negative, DFA negative, AFB stain negative, PNA PCR negative. Biopsies showed findings of organizing lung injury with differential diagnosis including infectious etiology, autoimmune, or drug lisa bryan. No malignancy seen, no fungal organisms seen on stain. Cytology negative for malignancy. PET CT was obtained and showed decrease in size of left-sided pulmonary opacities with mild FDG uptake and interval increase in cavitation suggestive of resolving infectious/inflammatory process. Specific Pulmonary Recommendations: - Follow up fungal cultures from BAL - Repeat CT chest in 3 months to evaluation resolution of FRANKLIN opacities Follow up: The patient does not require follow up with pulmonary. Cosigned by Eamon Hanks MD at 12/04/2023 8:31 PM CDT * Plan of Care - Dariana Cramer RN - 12/04/2023 3:05 PM CDT CM Progression of Care Update Per Medical Chart/Rounds/IDR: Patient is not medically ready for discharge ADD: 12-05 Discharge Barriers: No anticipated discharge barrier Education Needs Identified (plan): Pending PT/CT scan. Continue to optimize nutrition PT/OT rec for home with intermittent assist. Patient is not sure of home health at this time. CM tofollow up with patient and spouse F/U Appointments: pending Patient's Identified Problem/Goal Problem:?Ensure acute medical needs are met and that patient has a safe discharge plan. Goal:?Secure a discharge plan that patient/family are agreeable with?and ensure patient has continuum of care. Patient and/or family are agreeable with plan. workers compensation manager will continue to follow and assist with discharge planning as needed. If any further discharge needs arise, please contact the covering embedded case manager. Dariana CramerRN,BSN,CM * Consults, Subsequent - Fernando Dooley MD - 12/04/2023 1:38 PM CDT Private GI Subsequent Consult Hospital Day: 10 Subjective - Better mood today - Agreeable to TAC at future date - Brought literature regarding ostomy Objective Physical Exam: Vitals: 12/04/23 0813 BP: 123/61 Pulse: 97 Resp: 18 Temp: SpO2: 97% Wt Readings from Last 3 Encounters: 12/04/23 57.6 kg (127 lb) 11/25/23 58.2 kg (128 lb 3.2 oz) 11/13/23 63 kg (139 lb) General Appearance: Alert, cooperative, no distress. HEENT: Normocephalic, without obvious abnormality, atraumatic. No scleral icterus or conjunctival pallor. Lungs: Clear to auscultation bilaterally, respirations unlabored Cardiovascular: Regular rate and rhythm, no murmur. Abdomen: Soft, non-tender, bowel sounds active all four quadrants, no masses, no organomegaly, non-distended Extremities: No cyanosis or edema, no clubbing Skin: No rash Neurologic: Alert and oriented x 4. Psychiatric: Normal mood and affect Recent Labs Lab Units 12/04/23 0019 12/03/23 0009 12/01/23 2146 HEMOGLOBIN g/dL 7.9* 8.3* 8.4* Impression: 63 y.o. female PMH HTN, T2DM, s/p cholecystectomy, a large adnexal mass c/f malignancy, and suspected crohn???s colitis who presents for active colitis. 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 She was admitted with the plan to initiate IFX, however she had new symptoms of a cough and CT showing cavitary pulmonary nodules as well as increased pericolonic fluid collection. These CT findings are very suspicious for a disseminated mycobacterial or fungal ifx which would be a contraindicationto starting IFX. Additionally, the increasing size of the fluid colelction around the sigmoid colon, in isolation, poses a significant barrier to starting IFX. With no medical therapies available at this time, CRS was engaged for consideration of surgical intervention. Recommendations: - f/u infectious/bronch studies - Appreciate CRS/Business Office Representative Onc consults. Tentative plan for TAC and adnexal mass resection on 12/16 - abx per primary/ID - Cont optimization of nutritional status while inpatient. TPN not viable given intraabdominal fluid collection with mircroabscesses and possible infectious process involving lungs We will continue to follow-up with you. Thank you for involving us in the care of this patient. If you have any questions, please call the private GI pager during weekdays or the [employer] phone during after hours and weekends. Fernando Dooley MD Gastroenterology Fellow Cosigned by Vamshi Gonzalez MD at 12/04/2023 2:14 PM CDT Associated attestation - Vamshi Gonzalez MD - 12/04/2023 2:14 PM CDT I have seen and examined the patient on 12/04/23. I agree with the findings and plan of care as documented in the resident's/fellow's note.. Seems accepting of ostomy surgery now. .Vamshi Gonzalez MD, FACP, FACG, AGAF, FASGE, FCCF director of manufacturing [facility] [address] [place] [address] Office [phone] * Plan of Care - Christine Avendano - 12/04/2023 8:09 AM CDT Problem: Discharge Planning Goal: Understanding discharge needs will improve Outcome: Progressing Problem: Fall Risk Goal: Ability to state ways to decrease the risk of falls will improve Outcome: Progressing Goal: Will remain free from falls Outcome: Progressing Goal: Will remain free from injury from falls Outcome: Progressing Problem: Lack of Knowledge Goal: Ability to describe self care measures that may prevent or decrease complications related to Type 2 Diabetes will improve Outcome: Progressing Problem: Health Nutrition Goal: Nutritional intake and knowledge related to Diabetes will improve Outcome: Progressing Problem: Neurosensory Goal: Achieves maximal functionality and self care Outcome: Progressing Problem: Musculoskeletal Goal: Return mobility to safest level of function Outcome: Progressing Goal: Maintain proper alignment of affected body part Outcome: Progressing Goal: Return ADL status to a safe level of function Outcome: Progressing Goal: Ability to perform activities at highest level will improve Outcome: Progressing Goal: Mobility, ROM and muscle strength will improve Outcome: Progressing Problem: Gastrointestinal Goal: Minimal or absence of nausea and vomiting Outcome: Progressing Goal: Maintains or returns to baseline bowel function Outcome: Progressing Goal: Maintains adequate nutritional intake Outcome: Progressing Problem: Metabolic/Fluid and Electrolytes Goal: Electrolytes maintained within normal limits Outcome: Progressing Goal: Glucose maintained within prescribed range Outcome: Progressing Problem: Lack of Knowledge Goal: Ability to develop a pain control plan will improve Outcome: Progressing Problem: Medication Goal: Satisfaction with pain management medication regimen will improve Outcome: Progressing Problem: Sensory Goal: Ability to identify factors that increase pain levels will improve while working to decrease the patient's pain levels Outcome: Progressing Problem: Coping Goal: Ability to cope will improve Outcome: Progressing Problem: Health Behavior Goal: Identification of resources available to assist in meeting health care needs will improve Outcome: Progressing Problem: Respiratory Goal: Achieves optimal ventilation and oxygenation Outcome: Progressing Goal: Ability to maintain a clear airway will improve Outcome: Progressing Problem: Skin/Tissue Integrity Goal: Incisions, wounds, or drain sites healing without S/S of infection Outcome: Progressing Problem: Infection Goal: Absence of infection during hospitalization Outcome: Progressing Problem: Isolation Lack of Knowledge Goal: Knowledge of risk factors and measures for prevention of condition will improve Outcome: Progressing Problem: Isolation Physical Regulation Goal: Isolation- Spread of further infection will be prevented Outcome: Progressing Goal: Isolation- Complications related to the disease process, condition, or treatment will be avoided or minimized. Outcome: Progressing Problem: Hematologic Goal: Maintains hematologic stability Outcome: Progressing Problem: Skin Integrity Impairment Risk Goal: Mobility will improve Outcome: Progressing Goal: Understanding of ways to prevent future skin breakdown will improve Outcome: Progressing Goal: Nutritional status will improve Outcome: Progressing Goal: Risk for impaired skin integrity will decrease Outcome: Progressing Problem: Genitourinary Goal: Absence of urinary retention Outcome: Progressing Goals: Clinical Goals for the Shift: VSS, Blood glucose WNL, Pain management, Maintain safety * Plan of Care - Yuridia Atkinson RN - 12/03/2023 8:14 PM CDT Goals: Safety & comfort, labs, monitoring, pain management, BG control, NPO at MO. Summary: Safety measures applied, needs attended, frequent rounds done, pain assessed, monitored for clinical changes, kept clean & dry, maintained a calm & restful environment. * Consults, Subsequent - Fernando Dooley MD - 12/03/2023 5:26 PM CDT Private GI Subsequent Consult Hospital Day: 9 Subjective - No change in bowel habit or appetite - Pt remains anxious/despondent regarding situation - Seen by CRS and Business Office Representative Onc. Tentative plan for combined TAC and resection of adnexal mass - Pt hesitant to pursue surgical intervention. Had prolonged discussion regarding absence of medical treatment options given worsening sigmoid fluid collection and additional high concern for disseminated mycobacterial/fungal infection given cavitary pulmonary infiltrates. Discussed risks of early disease recurrence or complication with subtotal colectomy, and discussed how life with ileostomy/colostomy might look. Also discussed our concerns that her disease will only worsen without surgical intervention and that she would present again in shock as she did during her presentation in October Objective Physical Exam: Vitals: 12/03/23 1700 BP: Pulse: Resp: 18 Temp: SpO2: Wt Readings from Last 3 Encounters: 12/03/23 57.8 kg (127 lb 6.4 oz) 11/25/23 58.2 kg (128 lb 3.2 oz) 11/13/23 63 kg (139 lb) General Appearance: Alert, cooperative, no distress. HEENT: Normocephalic, without obvious abnormality, atraumatic. No scleral icterus or conjunctival pallor. Lungs: Clear to auscultation bilaterally, respirations unlabored Cardiovascular: Regular rate and rhythm, no murmur. Abdomen: Soft, non-tender, bowel sounds active all four quadrants, no masses, no organomegaly, non-distended Extremities: No cyanosis or edema, no clubbing Skin: No rash Neurologic: Alert and oriented x 4. Psychiatric: Normal mood and affect Recent Labs Lab Units 12/03/23 0009 12/01/23 2146 11/30/23 2255 HEMOGLOBIN g/dL 8.3* 8.4* 8.3* Impression: 63 y.o. female PMH HTN, T2DM, s/p cholecystectomy, a large adnexal mass c/f malignancy, and suspected crohn???s colitis who presents for active colitis. 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 She was admitted with the plan to initiate IFX, however she had new symptoms of a cough and CT showing cavitary pulmonary nodules. An infectious process leads the differential as these lesions are new from just a few weeks ago. Most of her infectious work-up has returned negative (notable pending results include, mycobacterial cultures which will take weeks and bronch fungal cultures). However, even should all studies return negative (which will take weeks), a disseminated infection would stillbe at the top of our differential and preclude initiation of IFX. Additionally, progression of her fluid collection at her sigmoid colon on imaging this admission poses considerable concerns with initiating IFX. With no medical therapies available, CRS was engaged for consideration of surgical intervention. Recommendations: - f/u infectious/bronch studies - Appreciate CRS/Business Office Representative Onc consults. Tentative plan for TAC and adnexal mass resection on 12/16 - abx per primary/ID We will continue to follow-up with you. Thank you for involving us in the care of this patient. If you have any questions, please call the private GI pager during weekdays or the [employer] phone during after hours and weekends. Fernando Dooley MD Gastroenterology Fellow Cosigned by Vamshi Gonzalez MD at 12/03/2023 7:13 PM CDT Associated attestation - Vamshi Gonzalez MD - 12/03/2023 7:13 PM CDT I have seen and examined the patient on 12/03/23. I agree with the findings and plan of care as documented in the resident's/fellow's note.. Vamshi Gonzalez MD, FACP, FACG, AGAF, HERNAN, [facility] director of manufacturing [facility] [address] [place] [address] Office [phone] * Plan of Care - Dariana Cramer RN - 12/03/2023 3:57 PM CDT 12/03/23 1556 Discharge Planning Support System Spouse/Significant Other;Family members (Jean Claude/spouse [phone]) Anticipated discharge level of care Private residence Does the patient need discharge transport arranged? No (family to provide transportation) Post Acute Care Plan Home Care Services N/A OP Services N/A DME N/A Post Acute Care Facility N/A CM Progression of Care Update Per Medical Chart/Rounds/IDR: Patient is not medically ready for discharge ADD: 12-06 Discharge Barriers: No anticipated discharge barrier Education Needs Identified (plan): Pending Bronch/Path results. Continue IV abx. Pending ID final rec Pending PT/OT rec F/U Appointments: pending Patient's Identified Problem/Goal Problem:?Ensure acute medical needs are met and that patient has a safe discharge plan. Goal:?Secure a discharge plan that patient/family are agreeable with?and ensure patient has continuum of care. Patient and/or family are agreeable with plan. workers compensation manager will continue to follow and assist with discharge planning as needed. If any further discharge needs arise, please contact the covering embedded case manager. Dariana Cramer RN,BSN,CM * Hospital Course - Debbie Baltazar MD - 12/03/2023 3:22 PM CDT 63 year old female with recently diagnosed IBD (originally thought to be UC but is now more likely to be Crohn's) who has persistent colitis of her sigmoid colon with microperforation, multiple abscesses of the liver and spleen, and now new left upper lobe lung lesions, some of which are cavitary. She is not a candidate for anti-TNF treatment in the setting of her lung lesions until etiology is determined. Pt also has a new pelvic mass that requires resection. She underwent a left colectomy, end colostomy, LIBRA/BSO on 12/23. Postoperatively her hgb dropped and required to be transfused with 1 unit pRBC. Her diet was advanced and she was tolerating a consistent carb diet without n/v. Her ostomy was productive with stool. She worked with the stoma nurses. Her saba was removed on 12/28. ID was consulted andr recommended a total of 5 days of antibiotics, her last day being 12/28. Home meds: Losartan, Mesalamine PMHx: HTN, DM Daily events: 12/23: Left colectomy, end colostomy, LIBRA/BSO, 15cm left adnexal mass removed 12/24: monitor BP's, leave saba and IVF's today, ostomy teaching 12/25: consistent carb diet, dc'd OVEN HEATER pump, po pain meds, holding lovenox ON: WBC 10.1, Hgb 6.2; Transfused 1uPRBC Hgb 8.5 post-transfusion 12/26: CT A/P d/t Hgb drop, d/c Zosyn given culture resistant, start ceftriaxone 12/27: Restart lvx ppx 12/28: D/c saba, f/u ID recs She was discharged on postoperative day 6, 12/29. Her pain was controled on oral pain medications. She was discharged with a prescription for oxycodone. She was tolerating a consistent carb diet without n/v. Her ostomy was productive. She worked with the ostomy nurses. Her was voiding adequately. Her hgb was stable. She will follow up with Dr. Perez postoperatively. IO ARTIST IO ARTIST IO ARTIST IO ARTIST IO ARTIST IO ARTIST * Consults, Subsequent - Marlene Pierre MD - 12/03/2023 2:57 PM CDT Pulmonary Subsequent Consult Subjective Chief complaint of weightloss. Interval History: - Pathology with alveolated lung parenchyma with widen septae, increased interstitial inflammatory infiltration, type II pneumonocyte hyperplasia, increased alveolar foamy macrophages and rare microthrombi consistent with organizing lung injury, with the differential diagnosis including infectious e tiology, autoimmune, or drug-induced. Samples negative for malignancy or organisms - Patient's breathing unchanged this morning. Feels overwhelmed by everything going on and all the different consultants. Scheduled Meds:ciprofloxacin, 500 mg, oral, BID - special enoxaparin, 40 mg, subcutaneous, Daily-2100 folic acid, 1 mg, oral, Daily insulin lispro, 0-4 Units, subcutaneous, Nightly insulin lispro, 0-5 Units, subcutaneous, TID with meals losartan, 25 mg, oral, Daily metroNIDAZOLE, 500 mg, oral, BID multivitamin therapeutic, 1 tablet, oral, Daily pantoprazole DR, 40 mg, oral, Daily pyridoxine, 100 mg, oral, Daily thiamine, 100 mg, oral, Daily Continuous Infusions: PRN Meds:. acetaminophen benzonatate sodium chloride 0.9% dextrose OR dextrose glucagon ondansetron phenoL polyethylene glycol ramelteon sodium chloride 0.9% I/O last 2 completed shifts: In: 1105 [P.O.:1105] Out: 1650 [Urine:1650] Objective Vitals: Vitals: 12/03/23 0835 BP: 129/60 Pulse: 98 Resp: 18 Temp: SpO2: 99% Physical Exam: General: sitting up at edge of bed, NAD HEENT: Clear oropharynx, no lesions, MMM Cardiovascular: RRR no murmurs Chest: crackles on left, decreased left basilar lung sounds, clear on right Abdomen: soft, distended Extremity: WWP, no edema Skin: no rashes Data: I have reviewed labs from last 24 hours. Pertinent findings include: - TBBX10/11: Alveolated lung parenchyma with widen septae, increased interstitial inflammatory infiltration, type II pneumonocyte hyperplasia, increased alveolar foamy macrophages and rare microthrombi. Bronchiolitis with predominant chronic inflammation is also noted. We do not see definitive evidence of vascul itis/endotheliolitis, viral cytopathic changes, granulomatous inflammation, necrosis or malignancy.Special stains for GMS, AFB, and trichrome were performed with proper controls. GMS and AFB stains show no fungal organisms or acid-fast bacteria. The trichrome stain shows no significant increase ofinterstitial fibrosis. Overall the findings are those of organizing lung injury, with the differential diagnosis including infectious etiology, autoimmune, or drug- induced. Correlation with imaging findings and microbiology study is strongly recommended. Recent Results (from the past 24 hour(s)) POCT glucose Collection Time: 12/02/23 4:47 PM Result Value Ref Range Glucose, POC 174 70 - 199 mg/dL POCT glucose Collection Time: 12/02/23 8:47 PM Result Value Ref Range Glucose, POC 216 (H) 70 - 199 mg/dL Glucose comment 1 Glu2: RN/MD Notified CBC with auto differential Collection Time: 12/03/23 12:09 AM Result Value Ref Range WBC 12.5 (H) 3.8 - 9.9 K/cumm Hgb 8.3 (L) 11.9 - 15.5 g/dL Hct 28.2 (L) 35.6 - 45.5 % Plt 481 (H) 150 - 400 K/cumm MPV 9.3 9.1 - 12.3 fL RBC 3.30 (L) 3.90 - 5.20 M/cumm MCV 85.5 81.3 - 96.4 fL MCH 25.2 (L) 27.1 - 33.3 pg MCHC 29.4 (L) 32.3 - 35.7 g/dL RDW CV 18.4 (H) 11.1 - 14.9 % RDW SD 57.8 (H) 35.7 - 48.1 fL NRBC abs 0.00 0.00 - 0.01 K/cumm Renal function panel Collection Time: 12/03/23 12:09 AM Result Value Ref Range Sodium 134 (L) 135 - 145 mmol/L Potassium, pl 4.3 3.3 - 4.9 mmol/L Chloride 100 97 - 110 mmol/L CO2 26 22 - 32 mmol/L Anion gap 8 2 - 15 mmol/L BUN 16 6 - 25 mg/dL Creatinine 0.77 0.60 - 1.10 mg/dL Glucose 140 70 - 199 mg/dL Calcium 8.6 8.5 - 10.3 mg/dL Phosphorus, pl 3.3 2.3 - 4.5 mg/dL Albumin 2.7 (L) 3.5 - 5.0 g/dL Vitamin B12 Collection Time: 12/03/23 12:09 AM Result Value Ref Range Vitamin B12 1,114 230 - 1,250 pg/mL Folate Collection Time: 12/03/23 12:09 AM Result Value Ref Range Folic acid 18.0 >=5.0 ng/mL Differential, auto Collection Time: 12/03/23 12:09 AM Result Value Ref Range Neutrophil abs 8.8 (H) 1.5 - 6.5 K/cumm Imm gran abs 0.1 0.0 - 0.1 K/cumm Lymphocyte abs 2.5 0.8 - 3.3 K/cumm Monocyte abs 0.9 (H) 0.2 - 0.8 K/cumm Eosinophil abs 0.2 0.0 - 0.5 K/cumm Basophil abs 0.1 0.0 - 0.1 K/cumm Neutrophil pct 70.1 % Imm gran pct 0.6 % Lymphocyte pct 20.1 % Monocyte pct 7.2 % Eosinophil pct 1.4 % Basophil pct 0.6 % eGFR Collection Time: 12/03/23 12:09 AM Result Value Ref Range eGFR 86 >=60 mL/min/1.73 m2 POCT glucose Collection Time: 12/03/23 8:48 AM Result Value Ref Range Glucose, POC 145 70 - 199 mg/dL POCT glucose Collection Time: 12/03/23 11:28 AM Result Value Ref Range Glucose, POC 244 (H) 70 - 199 mg/dL I have reviewed independently radiology images from last 24 hours: Pertinent findings include: none Assessment/Plan Consolidation of left upper lobe of lung (CMS/HCC) (HCC) Assessment & Plan Darius Russo is a 63 yo female [...] infectious process given the distribution on imaging. Malignancy less likely given the appearance.Bronch with BAL and TBBX of lingula completed 11/27 with studies pending. - Follow up bronchoscopy cultures and pathology (called pathology to [place] specimen) - Follow up pending fungal serologies and blood cultures Pulmonary will continue to follow Cosigned by Eamon Hanks MD at 12/05/2023 5:28 PM CDT Associated attestation - Eamon Hanks MD - 12/05/2023 5:28 PM CDT 12/05/2023 ADDENDUM CORRECTION to 12/03/2023 diagnoses in attestation (see bold and strikethrough) Today, I am treating the patient for lung infiltrates and cavitary lung disease, which is in severeexacerbation, progression, or experiencing treatment side effects, as evidenced by the symptoms andsigns, the need for hospitalization, and additional testing and treatment as described in the note. The lung infiltrates and cavitary lung disease pose a threat to the patient's life and bodily function in the near-term. Eamon Hanks MD ATTENDING ATTESTATION: I personally reviewed and interpreted the recent/new chest imaging studies. I evaluated the recent/new labs, cultures, and other test reports. I reviewed other recent/new notes. Dr. Pierre and I sawand examined the patient on 12/03/2023. I agree with the findings assessment and plan of care documented in this note. Nodules and FRANKLIN septal line thickening somewhat suspicious for cancer. Given non-diagnostic bronchoscopy, would get PET/CT. SUPPLEMENTAL ATTESTATION Today, I am treating the patient for acute hypoxemic respiratory failure w lung infiltrates, which is in severe exacerbation, progression, or experiencing treatment side effects, as evidenced by the symptoms and signs, the need for hospitalization, and additional testing and treatment as described in the note. The respiratory failure and lung infiltrates pose a threat to the patient's life and bodily function in the near-term. I reviewed the results of the labs which show WBC 13, PLT 481, Cr 0.77, few eos. I ordered/requested followup of lung pathology, SpO2 monitoring, and ABG AND CXR monitoring prn. I reviewed the ID and [employer] notes. I independently interpreted the 11/28/2023 CXR which shows multiple left-sided pulmonary nodules and post bronchoscopy changes, and small left pleural effusion I discussed the test interpretation and management of patient care, especially the respiratory failure and lung infiltrates, with the primary healthcare team. The patient is at increased risk of complications / morbidity from procedures / tests / treatments that could compromise her respiratory status. I am intensively monitoring the patient for SC enoxaparin toxicity, with assessment of CBC HCT and PLT. Eamon Hanks MD * Summary of Treatment Recommendations Non-Billable - Cara Guy NP - 12/03/2023 12:49 PM CDT Infectious Diseases Sign Off Recommendations for Patients on Health Psychologist Oral Antibiotics Diagnosis: Spleen and liver abscesses, contained perforation, lung nodules with cavitation Retained Infected Hardware (Yes/No/Unclear): no Location: n/a Site of Infection(s): spleen, liver, GI Organism(s): unknown Antibiotics Start Date: PMD: Kaushal Heath MD Infectious Disease Team: General 4 Infectious Disease Attending: Dr. Iverson Medication Recommendations: Drug(s): -Ciprofloxacin 500mg PO Q12H -metronidazole 500mg Po Q12H Firm Stop (Yes/No): no Anticipated Stop Date (note, the following date does not imply an order to stop on that date): continue antibiotic through surgery with duration pending surgical outcomes. Please consult ID at the time of surgery Labs/Frequency to be Monitored: labs with ID follow up Imaging Recommended Before Follow Up (include clinical question to be answered by imaging): per primary team Summary of Consultation: Patient is a 63 y.o. female with a history of hypertension, type 2 diabetes, and inflammatory boweldisease who is admitted [facility] for progressive weight loss and nausea in the setting of multiple admissions for diverticulitis complicated by contained sigmoid perforation, scattered liver and spleen abscesses and adnexal mass. She was admitted to [facility] on 11/24 for further workup and ID [...] and bronchiolitis. GMS and AFB stains negative. Regarding pulmonary findings, Infectious workup has been negative thus far. Pathology has results with GMS and AFB stains negative. No definitive evidence of vasculitis/endotheliolitis, granulomatousinflammation, necrosis, malignancy or viral cytopathic. Wound recommend considering non-infectious etiologies. Regarding splenic and liver abscesses and contained perforation, Qtc noted on 11/30 EKG in chart was 454. CRS and TEAR DOWN MATCHER discussing combo case in the near future. Would recommend continuing antibiotics through surgery and consulting ID at the time to reassess antibiotic needs. Other Recommendations: Please consult ID at the time of surgery Follow Up Plan: Patient currently scheduled on 12/09 with ID. Will reach out to clinic to cancel this appointment in light of plans for surgery in the near future. Cosigned by Laury Iverson MD at 12/03/2023 3:02 PM CDT * Assessment & Plan Note - Cara Guy NP - 12/03/2023 12:46 PM CDT Associated Problem(s): Hepatic abscess Near resolution of hepatic and splenic abscesses. No plans for repeat imaging given improvement. Continue antibiotics as described elsewhere. IO ARTIST IO ARTIST * Assessment & Plan Note - Cara Guy NP - 12/03/2023 12:45 PM CDT Associated Problem(s): Splenic abscess Near resolution of hepatic and splenic abscesses. No plans for repeat imaging given improvement. Continue antibiotics as described elsewhere. IO ARTIST * Plan of Care - Vanessa Caicedo, ABHAY - 12/03/2023 11:37 AM CDT Goals: Clinical Goals for the Shift: VSS, Blood glucose WNL, Pain management, Maintain safety Summary: patient is still being worked up with pulmonology, ID, and Business Office Representative oncology. Patient is oriented x 4 with clear speech. Blood glucose being monitored and watching appetite intake. Call light in reach. Pain being managed. * Medical Student - Amanda Westfall - 12/03/2023 7:29 AM CDT Medicine Daily Progress Note Chief complaint: failure to thrive iso IBD with contained microperf Interval History: NAEON. Patient and concerned about diagnostic uncertainty of workup thus far. Working to coordinate plans among consultants. Objective Vital Signs: 24hr Min/Max: Temp Min: 36.4 ??C (97.5 ??F) Max: 37.1 ??C (98.8 ??F) Pulse Min: 91 Max: 109 BP Min: 120/74 Max: 134/54 Resp Min: 18 Max: 18 SpO2 Min: 97 % Max: 99 % Intake/Output: Intake/Output Summary (Last 24 hours) at 12/03/2023 1236 Last data filed at 12/03/2023 0930 Gross per 24 hour Intake 1105 ml Output 850 ml Net 255 ml Physical Exam: General appearance: no acute distress HEENT: NCAT, MMM, anicteric Lungs: decreased breath sounds on the left. no w/r/r, non-labored Heart: RRR, S1, S2 normal, no murmur, rub or gallop. JVP not elevated, no LE edema Abdomen: soft, NT/ND; bowel sounds normal Extremities: extremities normal, warm and well-perfused, equal pulses Skin: warm and dry Neurologic: No abnormal movements, non-focal exam Current Medications: Current Facility-Administered Medications: acetaminophen (TYLENOL) tablet 650 mg, 650 mg, oral, Q4H PRN, 650 mg at 12/01/231750 benzonatate (TESSALON) capsule 100 mg, 100 mg, oral, TID PRN, 100 mg at 12/03/23918 Carrier Fluids for Secondary Infusion - 0.9% Sodium Chloride, 30 mL, intravenous, PRN ciprofloxacin (CIPRO) tablet 500 mg, 500 mg, oral, BID - special, 500 mg at 12/03/23523 dextrose gel in packet 15 g, 15 g, oral, Q15 Min PRN OR dextrose (D10W) 10% bolus 250 mL, 250 mL, intravenous, Q15 Min PRN enoxaparin (LOVENOX) syringe 40 mg, 40 mg, subcutaneous, Daily-2100, 40 mg at 12/02/232044 folic acid (FOLVITE) tablet 1 mg, 1 mg, oral, Daily, 1 mg at 12/03/23918 glucagon injection 1 mg, 1 mg, intramuscular, Q30 Min PRN insulin lispro (HumaLOG, ADMELOG) 100 unit/mL injection 0-4 Units, 0-4 Units, subcutaneous, Nightly, 1 Units at 12/02/232052 insulin lispro (HumaLOG, ADMELOG) 100 unit/mL injection 0-5 Units, 0-5 Units, subcutaneous, TID with meals, 1 Units at 12/02/231802 losartan (COZAAR) tablet 25 mg, 25 mg, oral, Daily, 25 mg at 12/03/23918 metroNIDAZOLE (FLAGYL) tablet 500 mg, 500 mg, oral, BID, 500 mg at 12/03/23918 multivitamin with folic acid 400 mcg tablet 1 tablet, 1 tablet, oral, Daily, 1 tablet at 12/03/23918 ondansetron (ZOFRAN) injection 4 mg, 4 mg, intravenous, Q4H PRN pantoprazole DR (PROTONIX) extended release tablet 40 mg, 40 mg, oral, Daily, 40 mg at 12/03/23918 phenoL (CHLORASEPTIC) 1.4 % oral spray 1 spray, 1 spray, mouth/throat, Q4H PRN, 1 spray at polyethylene glycol (MIRALAX) packet 17 g, 17 g, oral, Daily PRN pyridoxine (VITAMIN B6) tablet 100 mg, 100 mg, oral, Daily, 100 mg at 12/03/23 0918 ramelteon (ROZEREM) tablet 8 mg, 8 mg, oral, Nightly PRN sodium chloride 0.9% flush 0.5-20 mL, 0.5-20 mL, intra-catheter, PRN thiamine (VITAMIN B1) tablet 100 mg, 100 mg, oral, Daily, 100 mg at 12/03/23 0919 Lab/Radiology/Diagnostic Review: Recent Labs Lab Units 12/03/23812/01/23214511/30/23225411/29/23205011/29/23 0046 HEMOGLOBIN g/dL 8.3* 8.4* 8.3* 7.5* 8.0* HEMATOCRIT % 28.2* 27.3* 27.5* 24.3* 27.2* WBC K/cumm 12.5* 13.4* 17.2* 14.2* 17.2* PLATELETS K/cumm 481* 519* 382 443* 511* Recent Labs Lab Units 12/03/23812/01/23214511/30/23225411/29/23205011/29/236 11/28/23 0110 11/26/232157 SODIUM mmol/L 134* < > 135 131* 135 134* 127* POTASSIUM PLASMA mmol/L 4.3 < > 3.9 4.0 4.3 4.1 4.3 CHLORIDE mmol/L 100 < > 100 101 101 98 90* CO2 mmol/L 26 < > 25 24 28 28 26 ANIONGAP mmol/L 8 < > 10 6 6 8 11 BUN SERUM mg/dL 16 < > 10 12 15 15 19 CREATININE mg/dL 0.77 < > 0.74 0.86 0.82 0.78 0.91 CALCIUM mg/dL 8.6 < > 8.4* 7.9* 8.4* 8.3* 8.6 MAGNESIUM mg/dL -- -- 1.8 1.7 2.0 2.0 1.8 < > = values in this interval not displayed. Recent Labs Lab Units 12/03/23812/01/23214511/30/232254 ALBUMIN g/dL 2.7* < > 2.5* ALK PHOS Units/L -- -- 78 AST Units/L -- -- 16 ALT Units/L -- -- 6* BILIRUBIN TOTAL mg/dL -- -- 0.3 BILIRUBIN DIRECT mg/dL -- -- <0.2 < > = values in this interval not displayed. ID labs - Blood cultures 11/26: NGTD - mycobacterial AFB bcx 11/26: NGTD - Mold blood culture 11/28: NGTD - Aspergillus galactomannan antigen 11/27: negative - Blastomyces antibody blood 11/26: negative - Histoplasma antibody blood 11/26: in process - Histoplasma antigen urine: negative - Cryptococcal antigen blood 11/26: negative - Giardia antigen stoop 10/03: negative - Cryptosporidium antigen 10/03: negative - Stool O&P 10/04: negative - HIV 11/26: negative - C. diff stool 11/25: negative - RPP 11/24: negative - T Spot 10/26: negative - EBV 10/26: positive nuclear ab, positive IgG, negative IgM BAL 11/28/23 - Adenovirus PCR BAL: negative - Legionella culture BAL 11/27: pending - AFB stain BAL L upper lobe: negative - fungal culture BAL 11/27: NGTD - Pneumocystis DFA BAL: no p. Jirovecii - Aerobic culture and gram stain L upper lobe washing: oropharyngeal contamination - CMV PCR: negative - Pneumonia PCR: negative - Surg path: pending - Cytology: pending Surgical Pathology, L upper lobe biopsy: Sections show alveolated lung parenchyma with widen septae, increased interstitial inflammatory infiltration, type II pneumonocyte hyperplasia, increased alveolar foamy macrophages and rare microthrombi. Bronchiolitis with predominant chronic inflammation is also noted. We do not see definitive evidence of vasculitis/endotheliolitis, viral cytopathic changes, granulomatous inflammation, necrosis or malignancy. Special stains for GMS, AFB,and trichrome were performed with proper controls. GMS and AFB stains show no fungal organisms or acid-fast bacteria. The trichrome stain shows no significant increase of interstitial fibrosis. Overall the findings are those of organizing lung injury, with the differential diagnosis includinginfectious etiology, autoimmune, or drug-induced. Correlation with imaging findings and microbiology study is strongly recommended. Cytology, BAL fluid, Left: - Negative for malignancy or opportunistic infection Assessment/Plan Ms. Russo is a 63 y.o. female with presents with failure to thrive, IBD with contained sigmoid microperf, adnexal mass, new cavitating pulmonary lesions admitted for coordination of care. Darius Russo has a complex constellation of symptoms without a clear unifying etiology at this point in time. Her weight loss and lung nodules in the setting of adnexal mass is concerning for ovarian malignancy, but secondary school registrar/onc evaluation of adnexal mass gives a low index of suspicion for primary ovarian malignancy, and biopsy of lung tissue was not suggestive of malignancy. Weight loss may be secondary to mass effect from ovarian cyst, complicated by malabsorption secondary to IBD. Liver and spleen abscesses may suggest bacterial translocation in the setting of Crohn's disease flare, with subsequent seeding of lung. Although infectious workup of lungs has been negative, patient had been on ant ibiotics for several weeks before those samples were taken. 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 Symptoms well controlled on mesalamine until early this summer, with onset of 5+ daily nonbloody diarrhea, fecal incontinence, 65 lb weight loss, poor appetite, early satiety. Imaging with perforated sigmoid diverticulitis, has previously been managed conservatively. Outpatient was treated with mesalamine suppositories at home, follows with Dr. Jung. CT CAP 11/25 with worsening contained perf. LLQ tender on exam but not peritonitic. Antibiotic history: zosyn (10/02-10/03, 11/03-11/05), bactrim (10/04-11/03), flagyl (10/04-11/03), augmentin (10/04-11/03), cipro (11/06-), flagyl (11/06-). - Cipro 500 PO BID (11/06-), flagyl 500 PO BID (11/06-) - GI consult: patient not a candidate for infliximab at this time given active infection with liverand spleen microabscesses, sigmoid phlegmon, and suspected lung infection. She is likely as medically optimized for surgery as is reasonable. - Colorectal surgery consult: favor outpatient partial vs total colectomy (contingent on intraoperative findings) with Business Office Representative/Onc cystectomy at end of November to give patient more time for nutritional optimization. # Pulmonary nodules # Pleural effusion CT 11/25 with cavitating L upper lobe nodules, interlobular septal line thickening, regional lymphadenopathy, L pleural effusion and pleural thickening. Asymptomatic aside from cough x 1 week prior toadmission. No history of immunomodulatory treatment. Low suspicion for malignancy given that recent imaging in September shows no lung nodules. BAL 11/27. Workup for bacterial, mycobacterial, fungal, and viral etiologies has been negative thus far. Surgical pathology and cytology results revealing of organizing lung injury with a broad possible differential, but no evidence of malignancy or opportunistic infection. - appreciate pulmonology recs - ID consult: sending broad PCR and sequencing from lung biopsies - Continue tessalon pearls TID PRN for cough # Liver and spleen microabscesses Noted on recent imaging. Recent balaji in August, per op note GB was full of stones and difficult to grasp but low suspicion for retained gallstone as nothing seen on imaging and microabscesses are intraparenchymal. During October admission IR consulted, abscesses too small to drain. Improved on 11/25 CT. Likely 2/2 bacterial translocation iso IBD flare. - continue cipro 500 PO BID (11/06-), flagyl 500 PO BID (11/06-) # Adnexal mass Large multiseptated O RADS 3 lesion, likely arising from the right ovary found incidentally on imaging in August. Following with secondary school registrar onc, Dr. Rhodes. 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 - Considering colectomy with CRS so will also consult secondary school registrar/onc for consideration of concurrent cyst removal. # Severe Chronic Malnutrition 65 lb weight loss since July. Meets ASPEN criteria for severe chronic malnutrition. PO intake improved throughout admission. - nutrition consult - Thiamine 500 IV x 3 loading then 100 mg daily - daily folic acid - daily multivitamin - daily B6 100 mg - patient may require supplemental enteral nutrition while she works up to consuming 50-60% of energy needs. - Folate and B12 levels wnl so no need to supplement at this time. - Measure weight today. # Normocytic anemia # Secondary hemochromatosis Iron deposition in liver noted incidentally on recent imaging. Elevated ferritin to 1868 iso acute inflammatory process. History of 3 lifetime blood transfusions and several recent iron infusions foranemia. However, given that anemia has been normocytic and patient has been chronically ill for several months, favor anemia of chronic disease over iron deficiency as etiology. - nutritional optimization, avoid further iron supplementation if possible - q3 day T&S, hgb >7 # T2DM A1C in October was 5.7. Managed on metformin 500 q24. - SSI # HTN -losartan 25 (cont home med) Code - Fall Diet - Carb consistent DVT prophylaxis - subq lovenox, SCDs. Note that patient is at increased risk of VTE 2/2 IBD. Dispo - Planning for outpatient surgery so patient is medically ready to discharge pending any additional workup consulting teams would like to obtain. Cosigned by Álvaro Radford MD at 12/03/2023 3:44 PM CDT * Consults, Subsequent - Cara Guy NP - 12/03/2023 5:38 AM CDT Infectious Disease Subsequent Consult Note Infectious Disease Team: General 4 Contact Information: Please see [facility] Treatment Team listing for up-to-date contact information. Subjective Chief complaint of Spleen and liver abscesses, contained perforation, lung nodules with cavitation Interval History: -Reviewed negative infectious workup and pathology results with patient. -TEAR DOWN MATCHER/CRS consulted and discussing possible surgical intervention in the future -continue metronidazole and ciprofloxacin through surgery. Will reassess antibiotics after surgery. Objective Anti-infectives (From admission, onward) Start Dose/Rate Route Frequency Ordered Stop 11/26/23 0900 metroNIDAZOLE (FLAGYL) tablet 500 mg 500 mg oral 2 times daily 11/25/23211911/26/23 0600 ciprofloxacin (CIPRO) tablet 500 mg 500 mg oral 2 times daily (for quinolones,etc) 11/25/232119 Vitals: 24hr Min/Max: Temp Min: 36.4 ??C (97.5 ??F) Max: 37.1 ??C (98.8 ??F) Pulse Min: 91 Max: 109 BP Min: 120/74 Max: 134/54 Resp Min: 18 Max: 18 SpO2 Min: 97 % Max: 99 % Most Recent : Vitals: 12/03/23834 BP: 129/60 Pulse: 98 Resp: 18 Temp: SpO2: 99% I/O last 2 completed shifts: In: 780 [P.O.:780] Out: 1650 [Urine:1650] Active LDAs: Peripheral IV 11/29/23 22 G Anterior;Right Forearm (Active) Number of days: 4 Physical Exam: Physical Exam Constitutional: General: She is not in acute distress. HENT: Head: Normocephalic and atraumatic. Nose: Nose normal. Mouth/Throat: Mouth: Mucous membranes are moist. Eyes: Pupils: Pupils are equal, round, and reactive to light. Cardiovascular: Rate and Rhythm: Normal rate and regular rhythm. Pulmonary: Effort: Pulmonary effort is normal. No respiratory distress. Abdominal: General: Bowel sounds are normal. Palpations: Abdomen is soft. Musculoskeletal: General: Normal range of motion. Right lower leg: No edema. Left lower leg: No edema. Skin: General: Skin is warm and dry. Findings: No rash. Neurological: General: No focal deficit present. Mental Status: She is alert and oriented to person, place, and time. Mental status is at baseline. Psychiatric: Mood and Affect: Mood normal. Behavior: Behavior normal. Thought Content: Thought content normal. Judgment: Judgment normal. Lab/Radiology/Diagnostic Review: Lab Results Component Value Date MICROBIOLOGY Preliminary Report: No growth to date. 11/29/2023 MICROBIOLOGY Preliminary Report: Negative to date. 11/28/2023 MICROBIOLOGY 11/28/2023 Preliminary Report: No growth of acid-fast bacilli to date MICROBIOLOGY Preliminary Report: No growth of fungus to date 11/28/2023 MICROBIOLOGY 11/28/2023 Direct Stain Examination - Final: Negative for: Pneumocystis jirovecii MICROBIOLOGY 11/28/2023 Preliminary Report: No growth of acid-fast bacilli to date MICROBIOLOGY Preliminary Report: No growth of fungus to date 11/28/2023 MICROBIOLOGY 11/28/2023 Direct Stain Examination - Final: Negative for: Pneumocystis jirovecii MICROBIOLOGY 11/28/2023 Final Report: Growth indicates upper respiratory noah. MICROBIOLOGY 11/28/2023 Final Report: Growth indicates upper respiratory noah. Radiology results were reviewed. No results found. No results found. Assessment/Plan Hepatic abscess Assessment & Plan Continue cipro and metronidazole. Pulmonary nodule Assessment & Plan Patient is a 63 y.o. female with a history of hypertension, type 2 diabetes, and inflammatory boweldisease who is admitted from [facility] for progressive weight loss and nausea in the setting of multiple admissions for diverticulitis complicated by contained sigmoid perforation, scattered liver and spleen abscesses and adnexal mass. She was admitted to [facility] on 11/24 for further workup and ID [...] and bronchiolitis. GMS and AFB stains negative. Reviewed pathology results and negative infectious workup. Explained that non- infectious etiologieswill need to be explored. Pulm came and spoke to patient and patient reports no alternative has been discussed/identified. Recommendations: - Consider non-infectious etiologies -Will follow up on results. Of note fungal and AFB cultures take several weeks to finalize -Thank you for allowing us to participate in the care of this patient. For questions or concerns, please do not hesitate to reach out. Splenic abscess Assessment & Plan Patient is a 63 y.o. female with a history of hypertension, type 2 diabetes, and inflammatory boweldisease who is admitted from [facility] for progressive weight loss and nausea in the setting of multiple admissions for diverticulitis complicated by contained sigmoid perforation, scattered liver and spleen abscesses and adnexal mass. She was admitted to [facility] on 11/24 for further workup and ID [...] sigmoid colon. Improving hepatic and splenic abscesses. Patient has continued on ciprofloxacin and metronidazole. Qtc noted on 11/30 EKG in chart was 454. CRS and TEAR DOWN MATCHER discussing combo case in the near future. Would recommend continuing antibiotics throughsurgery and consulting ID at the time to reassess antibiotic needs. Recommendations. -Continue metronidazole and ciprofloxacin. -Continue antibiotics through surgery. Consult ID at the time of surgery so that we may reassess need for antibiotics -Thank you for allowing us to participate in the care of this patient. For questions or concerns, please do not hesitate to reach out. Patient seen and plan formulated with Dr. Iverson. Cara Guy, Team 4 Infectious Diseases INDUSTRIAL SECURITY ANALYST Please contact the Team 4 ID INDUSTRIAL SECURITY ANALYST M-F, 7-3; or the Attending at the phone numbers in care team with any questions or concerns. After hours, please contact the ID fellow consular officer. Cosigned by Laury Iverson MD at 12/03/2023 3:02 PM CDT Associated attestation - Laury Iverson MD - 12/03/2023 3:02 PM CDT I have seen and examined the patient on 12/03/23 in conjunction with the non- physician provider. Interval Events: No acute events, patient looking forward to definitive Physical Exam: Patient is sitting up in bed, eating yogurt Lab/Radiology/Diagnostics Review: Path: 11/27 lung biopsy Organizing lung injury and bronchiolitis, GMS and AFB stains negative. No definitive evidence of vasculitis/endotheliolitis, granulomatous inflammation, necrosis, malignancy or viral cytopathic. Micro: VRE screen negative T spot from 10/26 negative. C diff GDH/toxin negative Fungal testing: Cryptococcal antigen in serum negative Blastomyces antibody EIA serum negative Histoplasma antibody blood negative Histoplasma urine antigen negative Aspergillus galactomannan negative Blood cultures 11/26 blood cultures and mycobacterial cultures no growth to date 11/28 mold blood cultures in process 11/27 results from bronchoscopy Bronchoalveolar lavage from left upper lobe: Gram stain: Few PMNs, few epithelial cells, other cellular material, rare mixed bacterial noah Bacterial Culture: Upper respiratory noah Legionella culture pending negative pneumonia PCR, CMV PCR, adenovirus PCR PCP DFA negative Microbiology culture x2 no growth Mycobacterial culture x2- no AFB seen, no growth Pending studies include: Broad range bacterial and fungal PCR sent to [facility] Assessment/Plan: This is a 63-year-old woman with a history of inflammatory bowel disease which has been most recently complicated by cholecystitis status post cholecystectomy and sigmoid colon microperforation, found to also have splenic and hepatic microabscesses all in the context significant weight loss. This admission, CT scan identified a new nodules predominantly in the upper left lobe with associated left-sided pleural effusion. Currently, broad infectious workup has returned negative including fungal and AFB stains on lung biopsy. Pathology showing organizing lung injury is non- specific and does not rule in/out infectious process. At this time, with no alternative more likely diagnosis for her pulmonary process I would not recommend initiating infliximab. Given that the patient's splenic and hepatic microabscesses have improved on ciprofloxacin and metronidazole, we will recommend continuing these through her upcoming surgery. QTC last measured 454. Today, we discussed maintaining ongoing physical activity as well as increasing her caloric and protein intake. Please reconsult Infectious diseases at the time of surgery to help guide ongoing antibiotic management. Medical Decision Making: Today, I am treating the patient for pulmonary nodules, colonic perforation, hepatic and splenic abscesses which can cause sepsis, malnutrition, in the short-term future in the absence of appropriate treatment, as described in the note., The patient is being intensively monitored for antimicrobial toxicity from ciprofloxacin and metronidazole with the following tests: CBC, CBC, ECG for QTC monitoring., and Discussed the risk/benefit of infliximab initiation versus surgical intervention procedure/surgery with the patient as described in the note. * Plan of Care - Yuridia Atkinson RN - 12/02/2023 7:54 PM CDT Goals: Safety & comfort, labs, monitoring, pain management, BG control. Summary: Safety measures applied, needs attended, frequent rounds done, pain assessed, monitored for clinical changes, kept clean & dry, maintained a calm & restful environment. * Medical Student - Amanda Westfall - 12/02/2023 12:45 PM CDT Medicine Daily Progress Note Chief complaint: failure to thrive, IBD with contained perf, adnexal mass Interval History: NAEON, pain well controlled at bedside, daughter also visited yesterday. Objective Vital Signs: 24hr Min/Max: Temp Min: 36.7 ??C (98.1 ??F) Max: 36.9 ??C (98.4 ??F) Pulse Min: 96 Max: 108 BP Min: 115/59 Max: 133/64 Resp Min: 17 Max: 18 SpO2 Min: 96 % Max: 100 % Intake/Output: Tolerating PO. 5 nonbloody, well formed bowel movements yesterday. Physical Exam: General appearance: no acute distress, tearful HEENT: NCAT, MMM, anicteric Lungs: L sided lung sounds diminished. no w/r/r, non-labored Heart: RRR, S1, S2 normal, no murmur, rub or gallop. JVP not elevated, no LE edema Abdomen: soft, full, LLQ mildly tender to palp; bowel sounds present all 4 quadrants Extremities: extremities normal, warm and well-perfused, equal pulses Skin: warm and dry Neurologic: No abnormal movements, non-focal exam Current Medications: Current Facility-Administered Medications: acetaminophen (TYLENOL) tablet 650 mg, 650 mg, oral, Q4H PRN, 650 mg at 11/28/23 0651 benzonatate (TESSALON) capsule 100 mg, 100 mg, oral, TID PRN, 100 mg at 11/28/23 0651 Carrier Fluids for Secondary Infusion - 0.9% Sodium Chloride, 30 mL, intravenous, PRN ciprofloxacin (CIPRO) tablet 500 mg, 500 mg, oral, BID - special, 500 mg at 11/28/23 0621 dextrose gel in packet 15 g, 15 g, oral, Q15 Min PRN OR dextrose (D10W) 10% bolus 250 mL, 250 mL, intravenous, Q15 Min PRN enoxaparin (LOVENOX) syringe 40 mg, 40 mg, subcutaneous, Daily-2100, 40 mg at 11/26/23 2140 folic acid (FOLVITE) tablet 1 mg, 1 mg, oral, Daily glucagon injection 1 mg, 1 mg, intramuscular, Q30 Min PRN insulin lispro (HumaLOG, ADMELOG) 100 unit/mL injection 0-4 Units, 0-4 Units, subcutaneous, Nightly, 1 Units at 11/26/23 2349 insulin lispro (HumaLOG, ADMELOG) 100 unit/mL injection 0-5 Units, 0-5 Units, subcutaneous, TID with meals, 1 Units at 11/27/23 1306 lidocaine (PF) (XYLOCAINE) 20 mg/mL (2 %) preservative free injection 4 mL, 4 mL, other, Once (RT) lidocaine (PF) (XYLOCAINE) 20 mg/mL (2 %) preservative free injection 4 mL, 4 mL, nebulization, Once (RT) losartan (COZAAR) tablet 25 mg, 25 mg, oral, Daily, 25 mg at 11/27/23 0857 metroNIDAZOLE (FLAGYL) tablet 500 mg, 500 mg, oral, BID, 500 mg at 11/27/23 210 multivitamin 10 mL in sodium chloride 0.9% 500 mL IVPB, , intravenous, Daily ondansetron (ZOFRAN) injection 4 mg, 4 mg, intravenous, Q4H PRN pantoprazole DR (PROTONIX) extended release tablet 40 mg, 40 mg, oral, Daily, 40 mg at 11/27/23 0857 phytonadione (VITAMIN K1) 2.5 mg in dextrose 5% 50 mL IVPB, 2.5 mg, intravenous, Once polyethylene glycol (MIRALAX) packet 17 g, 17 g, oral, Daily PRN pyridoxine (VITAMIN B6) tablet 100 mg, 100 mg, oral, Daily ramelteon (ROZEREM) tablet 8 mg, 8 mg, oral, Nightly PRN sodium chloride 0.9% flush 0.5-20 mL, 0.5-20 mL, intra-catheter, PRN thiamine (VITAMIN B-1) 500 mg in sodium chloride 0.9% 100 mL IVPB, 500 mg, intravenous, TID [START ON 11/29/2023] thiamine (VITAMIN B1) tablet 100 mg, 100 mg, oral, Daily Lab/Radiology/Diagnostic Review: Labs: Lab Results Component Value Date WBC 13.4 (H) 12/01/2023 HGB 8.4 (L) 12/01/2023 HCT 27.3 (L) 12/01/2023 MCV 83.7 12/01/2023 LABPLAT 519 (H) 12/01/2023 Lab Results Component Value Date GLUCOSE 196 12/02/2023 CALCIUM 8.5 12/01/2023 SODIUM 134 (L) 12/01/2023 POTASSIUM 4.3 12/01/2023 CO2 25 12/01/2023 CHLORIDE 100 12/01/2023 BUNSER 13 12/01/2023 CREATININE 0.78 12/01/2023 ID labs - Blood cultures 11/26: NGTD - mycobacterial AFB bcx 11/26: NGTD - Mold blood culture 11/28: NGTD - Aspergillus galactomannan antigen 11/27: negative - Blastomyces antibody blood 11/26: negative - Histoplasma antibody blood 11/26: in process - Histoplasma antigen urine: in process - Cryptococcal antigen blood 11/26: negative - Giardia antigen stoop 10/03: negative - Cryptosporidium antigen 10/03: negative - Stool O&P 10/04: negative - HIV 11/26: negative - C. diff stool 11/25: negative - RPP 11/24: negative - T Spot 10/26: negative - EBV 10/26: positive nuclear ab, positive IgG, negative IgM BAL 11/28/23 - Adenovirus PCR BAL: negative - Legionella culture BAL 11/27: pending - AFB stain BAL L upper lobe: negative - fungal culture BAL 11/27: NGTD - Pneumocystis DFA BAL: no p. Jirovecii - Aerobic culture and gram stain L upper lobe washing: oropharyngeal contamination - CMV PCR: negative - Pneumonia PCR: negative - Surg path: pending - Cytology: pending Assessment/Plan Ms. Russo is a 63 y.o. female with presents with failure to thrive, IBD with contained sigmoid microperf, adnexal mass, new cavitating pulmonary lesions admitted for coordination of care. # Pulmonary nodules # Pleural effusion Patient with 1 week dry cough, no new fevers/chills, 65 lb weight loss over past year, hepatic and splenic abscesses. CT 11/25 with cavitating L upper lobe nodules, interlobular septal line thickening, regional lymphadenopathy, L pleural effusion and pleural thickening. TB spot negative in early October. Need to rule out mycobacterial disease before can proceed with anti-TNF tx for IBD. BAL 11/27. - pulmonology consult: labs pending, work up negative thus far. Awaiting surgical pathology and cytology results from BAL. - ID consult: labs pending, work up negative thus far. - Very low suspicion for mycobacterial disease but can't remove TB precautions until definitive rule-out on surg path. - Continue tessalon pearls TID, phenol, magic mouthwash PRN # IBD (UC vs CD) # Perforated Sigmoid Diverticulitis UC diagnosed 2022, GI now suspecting for CD. Symptoms well controlled until early this summer, withonset of 5+ daily nonbloody diarrhea, fecal incontinence, 65 lb weight loss, poor appetite, early satiety. Imaging perforated sigmoid diverticulitis, has been managed conservatively. Has been taking mesalamine suppositories at home. Saw Dr Perez with CRS during October admission and had outpatient visit with him scheduled later in November to discuss elective colectomy. Zosyn (10/02-10/03, 11/03-11/05), bactrim (10/04-11/03), flagyl (10/04- 11/03), augmentin (10/04-11/03), cipro (11/06-), flagyl (11/06-). ESR and CRP elevated. CT CAP 11/25 with worsening contained perf. LLQ tender on exam but not peritonitic. - Cipro 500 PO BID (11/06-), flagyl 500 PO BID (11/06-) - fecal calprotectin pending - IBD treatment pending infectious work up. - GI consult: regardless of formal results infectious work-up, clinical suspicion for infection is high enough that patient is unlikely to be candidate for immunomodulatory therapy right now, consider surgical mangement - Consult colorectal surgery # Liver and spleen microabscesses Noted on recent imaging. Recent balaji in August, per op note GB was full of stones and difficult to grasp but low suspicion for retained gallstone as nothing seen on imaging and microabscesses are intrahepatic. During October admission IR consulted, abscesses too small to drain. Improved on 11/25 CT. - continue cipro 500 PO BID (11/06-), flagyl 500 PO BID (11/06-) # hyponatremia # hypochloremia # hypocalcemia Urine lytes suggest appropriately concentrating urine. Hypocalcemia iso presumed hypoalbuminemia but iCal 11/29 also low. AM cortisol yesterday wnl. - ctm BMP + mag, phos - Renal function panel - thyroid panel # Adnexal mass Large multiseptated O RADS 3 lesion, likely arising from the right ovary found incidentally on imaging in August. Following with secondary school registrar onc, Dr. Rhodes. 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 - Considering colectomy with CRS so will also consult secondary school registrar/onc for consideration of concurrent cyst removal. # Severe Chronic Malnutrition 65 lb weight loss over past year, 20 lbs since September. Meets ASPEN criteria for severe chronic malnutrition. - nutrition consult - Thiamine 500 IV x 3 loading then 100 mg daily - daily folic acid - daily multivitamin - daily B6 100 mg - patient may require supplemental enteral nutrition while she works up to consuming 50-60% of energy needs. - q3 day T&S, hgb >7 - Weight (last measured on admission) - Preoperative optimization: - Nutrition: patient's PO intake is substantially improved compared to admission, and given concernfor fungal infection patient is a poor candidate for TPN so nutrition is likely as optimized as is reasonably achievable given patient's clinical picture. - Check B12 (last 176 on 10/26). Has been taking B12 supplement at home for several weeks, if deficient consider IM B12 injection - Check folate (last 2.5 on 10/26). Was taking vitamin at home, has been on 1400 mg inpatient per admissions dean consult. If deficient, consider with admissions dean further increasing folate iso likely poor absorption 2/2 IBD. # Hemochromatosis Iron deposition in liver noted incidentally on recent imaging. Elevated ferritin to 1868 iso acute inflammatory process. History of 3 lifetime blood transfusions, most likely secondary to iron infusions. - Favor first attempting to optimize anemia with B12 and folate status rather than further iron supplementation given this finding. # T2DM A1C in October was 5.7. Managed on metformin 500 q24. - SSI # HTN -losartan 25 (cont home med) Code - Fall Diet - Carb consistent DVT prophylaxis - subq lovenox, SCDs. Note that patient is at increased risk of VTE 2/2 IBD. Dispo - contingent on surgical plan, likely home. Cosigned by Álvaro Radford MD at 12/02/2023 2:55 PM CDT * Consults, Subsequent - Cara Guy, DIANA - 12/02/2023 11:27 AM CDT Infectious Disease Subsequent Consult Note Infectious Disease Team: General 4 Contact Information: Please see [facility] Treatment Team listing for up-to-date contact information. Subjective Chief complaint of Spleen and liver abscesses, contained perforation, lung nodules with cavitation Interval History: -Infectious workup thus far negative -No new symptoms or concerns at this time - Pathology with organizing lung injury and bronchiolitis, GMS and AFB stains negative Objective Anti-infectives (From admission, onward) Start Dose/Rate Route Frequency Ordered Stop 11/30/23 0838 al & mag hydroxide [id number]-fjpxdmhjswumgnt-qvwydbfrx-nystatin (MAGIC MOUTHWASH) oral suspension 1-1-1-1 10 mL 10 mL swish & swallow Every 4 hours PRN 11/30/23 0915 11/26/23 0900 metroNIDAZOLE (FLAGYL) tablet 500 mg 500 mg oral 2 times daily 11/25/23211911/26/23 0600 ciprofloxacin (CIPRO) tablet 500 mg 500 mg oral 2 times daily (for quinolones,etc) 11/25/232119 Vitals: 24hr Min/Max: Temp Min: 36.8 ??C (98.2 ??F) Max: 36.9 ??C (98.4 ??F) Pulse Min: 93 Max: 102 BP Min: 119/61 Max: 149/71 Resp Min: 18 Max: 18 SpO2 Min: 96 % Max: 98 % Most Recent : Vitals: 12/02/23 1105 BP: 119/61 Pulse: 99 Resp: Temp: SpO2: 97% I/O last 2 completed shifts: In: 780 [P.O.:780] Out: 800 [Urine:800] Active LDAs: Peripheral IV 11/29/23 22 G Anterior;Right Forearm (Active) Number of days: 3 Physical Exam: Physical Exam Constitutional: General: She is not in acute distress. Comments: Chronically ill appearing HENT: Nose: Nose normal. Mouth/Throat: Mouth: Mucous membranes are moist. Eyes: Pupils: Pupils are equal, round, and reactive to light. Cardiovascular: Rate and Rhythm: Regular rhythm. Tachycardia present. Pulmonary: Effort: Pulmonary effort is normal. No respiratory distress. Comments: Decreased breath sounds in left Abdominal: General: Bowel sounds are normal. Palpations: Abdomen is soft. Tenderness: There is no abdominal tenderness. Musculoskeletal: General: Normal range of motion. Skin: General: Skin is warm and dry. Findings: No rash. Neurological: General: No focal deficit present. Mental Status: She is alert. Psychiatric: Mood and Affect: Mood normal. Behavior: Behavior normal. Thought Content: Thought content normal. Judgment: Judgment normal. Lab/Radiology/Diagnostic Review: Lab Results Component Value Date MICROBIOLOGY Preliminary Report: No growth to date. 11/29/2023 MICROBIOLOGY Preliminary Report: Negative to date. 11/28/2023 MICROBIOLOGY 11/28/2023 Preliminary Report: No growth of acid-fast bacilli to date MICROBIOLOGY Preliminary Report: No growth of fungus to date 11/28/2023 MICROBIOLOGY 11/28/2023 Direct Stain Examination - Final: Negative for: Pneumocystis jirovecii MICROBIOLOGY 11/28/2023 Preliminary Report: No growth of acid-fast bacilli to date MICROBIOLOGY Preliminary Report: No growth of fungus to date 11/28/2023 MICROBIOLOGY 11/28/2023 Direct Stain Examination - Final: Negative for: Pneumocystis jirovecii MICROBIOLOGY 11/28/2023 Final Report: Growth indicates upper respiratory noah. MICROBIOLOGY 11/28/2023 Final Report: Growth indicates upper respiratory noah. Radiology results were reviewed. No results found. No results found. Assessment/Plan Pulmonary nodule Assessment & Plan Patient is a 63 y.o. female with a history of hypertension, type 2 diabetes, and inflammatory boweldisease who is admitted from [facility] for progressive weight loss and nausea in the setting of multiple admissions for diverticulitis complicated by contained sigmoid perforation, scattered liver and spleen abscesses and adnexal mass. She was admitted to [facility] on 11/24 for further workup and ID [...] Galactomannan 11/27: negative Histo urine antigen 11/27: in process BAL [employer] 11/27: No AFB seen, NGTD BAL Mycology 11/27: NGTD Pneumocystis DFA BAL 11/27: Negative BAL bacterial 11/27: upper respiratory noah BAL CMV 11/27: Not detected Mold blood culture 11/28: NGTD FR[place]LIN lung bx 11/27: organizing lung injury and bronchiolitis. GMS and AFB stains negative. On assessment today, patient with no new concerns/complains. She is hoping to get an answer this admission as what has been done outpatient has not been working. Pathology pending at the time of assess. Infectious workup has been negative thus far. Pathology has results with GMS and AFB stains negative. No definitive evidence of vasculitis/endotheliolitis, granulomatous inflammation, necrosis, malignancy or viral cytopathic. Recommendations: -Continue ciprofloxacin and metronidazole as ordered -Appreciate GI and CRS recommendations -Please obtain an EKG for Qtc monitoring - Consider non-infectious etiologies -Will follow up on results -Thank you for allowing us to participate in the care of this patient. For questions or concerns, please do not hesitate to reach out. Patient seen and plan formulated with Dr. Iverson. Cara Guy, Team 4 Infectious Diseases INDUSTRIAL SECURITY ANALYST Please contact the Team 4 ID INDUSTRIAL SECURITY ANALYST M-F, 7-3; or the Attending at the phone numbers in care team with any questions or concerns. After hours, please contact the ID fellow consular officer. Cosigned by Laury Iverson MD at 12/02/2023 1:40 PM CDT Associated attestation - Laury Iverson MD - 12/02/2023 1:40 PM CDT I have seen and examined the patient on 12/02/23 in conjunction with the non- physician provider. History: Patient feeling disappointed given diagnostic uncertainty Physical Exam: BP 119/61 (BP Location: Right arm, Patient Position: Sitting) Pulse 99 Temp 36.9 ??C (98.4 ??F) Resp 18 Ht 154.9 cm (5' 1 ) Wt 58.7 kg (129 lb 8 oz) SpO2 97% BMI 24.47 kg/m?? Decreased breath sounds in left hemithorax No abdominal pain Lab/Radiology/Diagnostics Review: Path: 11/27 lung biopsy Organizing lung injury and bronchiolitis, GMS and AFB stains negative. No definitive evidence of vasculitis/endotheliolitis, granulomatous inflammation, necrosis, malignancy or viral cytopathic. Micro: VRE screen negative T spot from 10/26 negative. C diff GDH/toxin negative Serum tests: Cryptococcal antigen in serum negative Blastomyces antibody EIA serum negative Histoplasma antibody blood negative Fungal markers: Aspergillus galactomannan negative Blood cultures 11/26 blood cultures and mycobacterial cultures no growth to date 11/28 mold blood cultures in process 11/27 results from bronchoscopy Bronchoalveolar lavage from left upper lobe: Gram stain: Few PMNs, few epithelial cells, other cellular material, rare mixed bacterial noah Bacterial Culture: Upper respiratory noah Legionella culture pending negative pneumonia PCR, CMV PCR, adenovirus PCR PCP DFA negative Microbiology culture x2 no growth Mycobacterial culture x2- no AFB seen, no growth Pending studies include: [id number] Histoplasma urine antigen Assessment/Plan: This is a 63-year-old woman with a history of inflammatory bowel disease which has been most recently complicated by cholecystitis status post cholecystectomy and sigmoid colon microperforation, found to also have splenic and hepatic microabscesses all in the context significant weight loss. This admission, CT scan identified a new nodules predominantly in the upper left lobe with associated left-sided pleural effusion. Notably these findings are new from 10/01. Currently, broad infectious workup has returned negative including fungal and AFB stains on lung biopsy. Pathology showing organizing lung injury is non- specific and does not rule in/out infectious process. Our team is currently engaged in multidisciplinary discussions regarding the significance ofthe lung biopsy as well as planning for her perforation (surgery and/or infliximab). At this time, with no alternative more likely diagnosis for her pulmonary process I would not recommend initiatinginfliximab. - continue ciprofloxacin 500 mg BID and metronidazole 500mg BID for colonic perforation and worsening phlegmon identified on CT - appreciate multidisciplinary discussions about options moving forward to address the patient's underlying IBD and significance of lung pathology - I will request broad range PCR and sequencing sent from lung tissue biopsy Medical Decision Making: Today, I am treating the patient for pulmonary nodules, colonic perforation, hepatic and splenic abscesses which can cause sepsis, malnutrition, in the short-term future in the absence of appropriate treatment, as described in the note., The patient is being intensively monitored for antimicrobial toxicity from ciprofloxacin and metronidazole with the following tests: CBC, CBC, ECG for QTC monitoring., and Discussed the risk/benefit of infliximab initiation versus surgical intervention procedure/surgery with the patient as described in the note. * Plan of Care - Riki Williamson RN - 12/02/2023 10:23 AM CDT Problem: Discharge Planning Goal: Understanding discharge needs will improve Outcome: Progressing Problem: Fall Risk Goal: Ability to state ways to decrease the risk of falls will improve Outcome: Progressing Goal: Will remain free from falls Outcome: Progressing Goal: Will remain free from injury from falls Outcome: Progressing Problem: Lack of Knowledge Goal: Ability to describe self care measures that may prevent or decrease complications related to Type 2 Diabetes will improve Outcome: Progressing Problem: Health Nutrition Goal: Nutritional intake and knowledge related to Diabetes will improve Outcome: Progressing Problem: Neurosensory Goal: Achieves maximal functionality and self care Outcome: Progressing Problem: Musculoskeletal Goal: Return mobility to safest level of function Outcome: Progressing Goal: Maintain proper alignment of affected body part Outcome: Progressing Goal: Return ADL status to a safe level of function Outcome: Progressing Goal: Ability to perform activities at highest level will improve Outcome: Progressing Goal: Mobility, ROM and muscle strength will improve Outcome: Progressing Problem: Gastrointestinal Goal: Minimal or absence of nausea and vomiting Outcome: Progressing Goal: Maintains or returns to baseline bowel function Outcome: Progressing Goal: Maintains adequate nutritional intake Outcome: Progressing Problem: Metabolic/Fluid and Electrolytes Goal: Electrolytes maintained within normal limits Outcome: Progressing Goal: Glucose maintained within prescribed range Outcome: Progressing Problem: Lack of Knowledge Goal: Ability to develop a pain control plan will improve Outcome: Progressing Problem: Medication Goal: Satisfaction with pain management medication regimen will improve Outcome: Progressing Problem: Sensory Goal: Ability to identify factors that increase pain levels will improve while working to decrease the patient's pain levels Outcome: Progressing Problem: Coping Goal: Ability to cope will improve Outcome: Progressing Problem: Health Behavior Goal: Identification of resources available to assist in meeting health care needs will improve Outcome: Progressing Problem: Respiratory Goal: Achieves optimal ventilation and oxygenation Outcome: Progressing Goal: Ability to maintain a clear airway will improve Outcome: Progressing Problem: Skin/Tissue Integrity Goal: Incisions, wounds, or drain sites healing without S/S of infection Outcome: Progressing Problem: Infection Goal: Absence of infection during hospitalization Outcome: Progressing Problem: Isolation Lack of Knowledge Goal: Knowledge of risk factors and measures for prevention of condition will improve Outcome: Progressing Problem: Isolation Physical Regulation Goal: Isolation- Spread of further infection will be prevented Outcome: Progressing Goal: Isolation- Complications related to the disease process, condition, or treatment will be avoided or minimized. Outcome: Progressing Problem: Hematologic Goal: Maintains hematologic stability Outcome: Progressing Problem: Skin Integrity Impairment Risk Goal: Mobility will improve Outcome: Progressing Goal: Understanding of ways to prevent future skin breakdown will improve Outcome: Progressing Goal: Nutritional status will improve Outcome: Progressing Goal: Risk for impaired skin integrity will decrease Outcome: Progressing Problem: Genitourinary Goal: Absence of urinary retention Outcome: Progressing Goals: Clinical Goals for the Shift: VSS, Blood glucose WNL, Pain management, Maintain safety Summary: * Consults, [place] - Fernando Dooley MD - 12/02/2023 9:40 AM CDT Private GI Subsequent Consult Hospital Day: 8 Subjective - No change in bowel habit or appetite - Pt quite anxious/despondent about her situation - Infectious work-up negative/pending to date. Histoplasma serologies negative but urine Ag pending. Mycobacterial cultures pending Objective Physical Exam: Vitals: 12/02/23 0520 BP: 149/71 Pulse: 93 Resp: Temp: 36.8 ??C (98.2 ??F) SpO2: 97% Wt Readings from Last 3 Encounters: 11/26/23 58.7 kg (129 lb 8 oz) 11/25/23 58.2 kg (128 lb 3.2 oz) 11/13/23 63 kg (139 lb) General Appearance: Alert, cooperative, no distress. HEENT: Normocephalic, without obvious abnormality, atraumatic. No scleral icterus or conjunctival pallor. Lungs: Clear to auscultation bilaterally, respirations unlabored Cardiovascular: Regular rate and rhythm, no murmur. Abdomen: Soft, non-tender, bowel sounds active all four quadrants, no masses, no organomegaly, non-distended Extremities: No cyanosis or edema, no clubbing Skin: No rash Neurologic: Alert and oriented x 4. Psychiatric: Normal mood and affect Recent Labs Lab Units 12/01/23 2146 11/30/23 2255 11/29/23 2051 HEMOGLOBIN g/dL 8.4* 8.3* 7.5* Impression: 63 y.o. female PMH HTN, T2DM, s/p cholecystectomy, a large adnexal mass c/f malignancy, and suspected crohn???s colitis who presents for active colitis. 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 She was admitted with the plan to initiate IFX, however she had new symptoms of a cough and CT showing cavitary pulmonary nodules. An infectious process leads the differential as these lesions are new from just a few weeks ago. Most of her infectious work-up has returned negative (notable pending results include urine histo Ag, mycobacterial cultures which will take weeks, and biopsy results). However, even should all studies return negative (which will take weeks), a disseminated infection would still be at the top of our differential and preclude initiation of IFX. While she has active inflammation in her colon we have no medical therapy to offer at this time. While she has lost a significant amount of weight over the past 6 months, there is little room for further optimization of her nutrition (not a candidate for TPN iso disseminated infection) and I anticipate her nutritional status will continue worsen without intervention. Recommendations: - f/u infectious studies - Abx per primary/ID - Recommend CRS consult for consideration of diversion colostomy +/- sigmoidectomy for complicated CD - Recommend TEAR DOWN MATCHER consult as well for consideration of resection of adnexal cyst at time of her intervention with CRS - Initiation of IFX will not be possible for weeks (either with return of negative mycobacterial culture at that time or after treatment of the responsible organism based on pending IFX dz work-up) but we do plan to start this as soon as is reasonable. We will continue to follow-up with you. Thank you for involving us in the care of this patient. If you have any questions, please call the private GI pager during weekdays or the [facility] phone during after hours and weekends. Fernando Dooley MD Gastroenterology Fellow * Consults, Subsequent - Marlene Pierre MD - 12/02/2023 6:48 AM CDT Pulmonary Subsequent Consult Subjective Chief complaint of weightloss. Interval History: - Galactomannan negative - Cytology, pathology, and fungal cultures pending - Patient feels well today. No breathing issues. No further hemoptysis Scheduled Meds:ciprofloxacin, 500 mg, oral, BID - special enoxaparin, 40 mg, subcutaneous, Daily-2100 folic acid, 1 mg, oral, Daily insulin lispro, 0-4 Units, subcutaneous, Nightly insulin lispro, 0-5 Units, subcutaneous, TID with meals losartan, 25 mg, oral, Daily metroNIDAZOLE, 500 mg, oral, BID multivitamin therapeutic, 1 tablet, oral, Daily pantoprazole DR, 40 mg, oral, Daily pyridoxine, 100 mg, oral, Daily thiamine, 100 mg, oral, Daily Continuous Infusions: PRN Meds:. acetaminophen al & mag hydroxide ocyoulrjtae-jjelgrwlrvmzxmu-khlkctsju-nystatin benzonatate sodium chloride 0.9% dextrose OR dextrose glucagon loperamide ondansetron phenoL polyethylene glycol ramelteon sodium chloride 0.9% I/O last 2 completed shifts: In: 780 [P.O.:780] Out: 800 [Urine:800] Objective Vitals: Vitals: 12/02/23 0520 BP: 149/71 Pulse: 93 Resp: Temp: 36.8 ??C (98.2 ??F) SpO2: 97% Physical Exam: General: Lying in bed, NAD HEENT: Clear oropharynx, no lesions, MMM Cardiovascular: RRR no murmurs Chest: crackles on left, decreased left basilar lung sounds, clear on right Abdomen: soft, distended Extremity: WWP, no edema Skin: no rashes Data: I have reviewed labs from last 24 hours. Pertinent findings include: - Galacamanan negative Recent Results (from the past 24 hour(s)) POCT glucose Collection Time: 12/01/23 12:02 PM Result Value Ref Range Glucose, POC 200 (H) 70 - 199 mg/dL POCT glucose Collection Time: 12/01/23 4:04 PM Result Value Ref Range Glucose, POC 152 70 - 199 mg/dL POCT glucose Collection Time: 12/01/23 8:26 PM Result Value Ref Range Glucose, POC 213 (H) 70 - 199 mg/dL CBC with auto differential Collection Time: 12/01/23 9:46 PM Result Value Ref Range WBC 13.4 (H) 3.8 - 9.9 K/cumm Hgb 8.4 (L) 11.9 - 15.5 g/dL Hct 27.3 (L) 35.6 - 45.5 % Plt 519 (H) 150 - 400 K/cumm MPV 8.6 (L) 9.1 - 12.3 fL RBC 3.26 (L) 3.90 - 5.20 M/cumm MCV 83.7 81.3 - 96.4 fL MCH 25.8 (L) 27.1 - 33.3 pg MCHC 30.8 (L) 32.3 - 35.7 g/dL RDW CV 18.2 (H) 11.1 - 14.9 % RDW SD 55.2 (H) 35.7 - 48.1 fL NRBC abs 0.00 0.00 - 0.01 K/cumm Renal function panel Collection Time: 12/01/23 9:46 PM Result Value Ref Range Sodium 134 (L) 135 - 145 mmol/L Potassium, pl 4.3 3.3 - 4.9 mmol/L Chloride 100 97 - 110 mmol/L CO2 25 22 - 32 mmol/L Anion gap 9 2 - 15 mmol/L BUN 13 6 - 25 mg/dL Creatinine 0.78 0.60 - 1.10 mg/dL Glucose 168 70 - 199 mg/dL Calcium 8.5 8.5 - 10.3 mg/dL Phosphorus, pl 3.0 2.3 - 4.5 mg/dL Albumin 2.6 (L) 3.5 - 5.0 g/dL Differential, auto Collection Time: 12/01/23 9:46 PM Result Value Ref Range Neutrophil abs 10.2 (H) 1.5 - 6.5 K/cumm Imm gran abs 0.1 0.0 - 0.1 K/cumm Lymphocyte abs 1.9 0.8 - 3.3 K/cumm Monocyte abs 0.9 (H) 0.2 - 0.8 K/cumm Eosinophil abs 0.2 0.0 - 0.5 K/cumm Basophil abs 0.1 0.0 - 0.1 K/cumm Neutrophil pct 76.4 % Imm gran pct 0.7 % Lymphocyte pct 14.2 % Monocyte pct 6.9 % Eosinophil pct 1.4 % Basophil pct 0.4 % eGFR Collection Time: 12/01/23 9:46 PM Result Value Ref Range eGFR 84 >=60 mL/min/1.73 m2 POCT glucose Collection Time: 12/02/23 8:19 AM Result Value Ref Range Glucose, POC 137 70 - 199 mg/dL BLOOD [facility] [place] Collection Time: 12/02/23 9:42 AM Result Value Ref Range Test name, chem SFUNG, Fungitell, Serum I have reviewed independently radiology images from last 24 hours: Pertinent findings include: none Assessment/Plan Consolidation of left upper lobe of lung (CMS/HCC) (HCC) Assessment & Plan Darius Russo is a 63 yo female [...] infectious process given the distribution on imaging. Malignancy less likely given the appearance.Bronch with BAL and TBBX of lingula completed 11/27 with studies pending. - Follow up bronchoscopy cultures and pathology (called pathology to [place] specimen) - Follow up pending fungal serologies and blood cultures Pulmonary will continue to follow Cosigned by Eamon Hanks MD at 12/05/2023 5:29 PM CDT Associated attestation - Eamon Hanks MD - 12/05/2023 5:29 PM CDT 12/05/2023 ADDENDUM CORRECTION to 12/02/2023 diagnoses in attestation (see bold and strikethrough) Today, I am treating the patient for lung infiltrates and cavitary lung disease, which is in severeexacerbation, progression, or experiencing treatment side effects, as evidenced by the symptoms andsigns, the need for hospitalization, and additional testing and treatment as described in the note. The lung infiltrates and cavitary lung disease pose a threat to the patient's life and bodily function in the near-term. Eamon Hanks MD ATTENDING ATTESTATION: I personally reviewed and interpreted the recent/new chest imaging studies. I evaluated the recent/new labs, cultures, and other test reports. I reviewed other recent/new notes. Dr. Pierre and I estelaand examined the patient on 12/02/2023. I agree with the findings assessment and plan of care documented in this note. Nodules and FRANKLIN septal line thickening suspicious for cancer in setting of pelvic mass. Would get PET/CT and look forward to path result from pelvic mass. SUPPLEMENTAL ATTESTATION Today, I am treating the patient for acute hypoxemic respiratory failure w lung infiltrates, which is in severe exacerbation, progression, or experiencing treatment side effects, as evidenced by the symptoms and signs, the need for hospitalization, and additional testing and treatment as described in the note. The respiratory failure and lung infiltrates pose a threat to the patient's life and bodily function in the near-term. I reviewed the results of the labs which show WBC 13, PLT 519, Cr 0.78, few eos. I ordered/requested followup of lung pathology, SpO2 monitoring, and ABG AND CXR monitoring prn. I reviewed the ID and [facility] [employer] notes. I independently interpreted the 11/28/2023 CXR which shows multiple left-sided pulmonary nodules and post bronchoscopy changes, and small left pleural effusion I discussed the test interpretation and management of patient care, especially the respiratory failure and lung infiltrates, with the primary healthcare team. The patient is at increased risk of complications / morbidity from procedures / tests / treatments that could compromise her respiratory status. I am intensively monitoring the patient for SC enoxaparin toxicity, with assessment of CBC HCT and PLT. Eamon Hanks MD * Plan of Care - Symone Johnson RN - 12/01/2023 9:21 PM CDT Goals: Clinical Goals for the Shift: VSS, Blood glucose WNL, Pain management, Maintain safety Summary: Problem: Skin Integrity Impairment Risk Goal: Mobility will improve Outcome: Progressing Goal: Understanding of ways to prevent future skin breakdown will improve Outcome: Progressing Goal: Nutritional status will improve Outcome: Progressing Goal: Risk for impaired skin integrity will decrease Outcome: Progressing Problem: Musculoskeletal Goal: Return mobility to safest level of function Outcome: Progressing Goal: Maintain proper alignment of affected body part Outcome: Progressing Goal: Return ADL status to a safe level of function Outcome: Progressing Goal: Ability to perform activities at highest level will improve Outcome: Progressing Goal: Mobility, ROM and muscle strength will improve Outcome: Progressing Problem: Gastrointestinal Goal: Minimal or absence of nausea and vomiting Outcome: Progressing Goal: Maintains or returns to baseline bowel function Outcome: Progressing Goal: Maintains adequate nutritional intake Outcome: Progressing * Plan of Care - Riki Williamson RN - 12/01/2023 4:07 PM CDT Problem: Discharge Planning Goal: Understanding discharge needs will improve Outcome: Progressing Problem: Fall Risk Goal: Ability to state ways to decrease the risk of falls will improve Outcome: Progressing Goal: Will remain free from falls Outcome: Progressing Goal: Will remain free from injury from falls Outcome: Progressing Problem: Lack of Knowledge Goal: Ability to describe self care measures that may prevent or decrease complications related to Type 2 Diabetes will improve Outcome: Progressing Problem: Health Nutrition Goal: Nutritional intake and knowledge related to Diabetes will improve Outcome: Progressing Problem: Neurosensory Goal: Achieves maximal functionality and self care Outcome: Progressing Problem: Musculoskeletal Goal: Return mobility to safest level of function Outcome: Progressing Goal: Maintain proper alignment of affected body part Outcome: Progressing Goal: Return ADL status to a safe level of function Outcome: Progressing Goal: Ability to perform activities at highest level will improve Outcome: Progressing Goal: Mobility, ROM and muscle strength will improve Outcome: Progressing Problem: Gastrointestinal Goal: Minimal or absence of nausea and vomiting Outcome: Progressing Goal: Maintains or returns to baseline bowel function Outcome: Progressing Goal: Maintains adequate nutritional intake Outcome: Progressing Problem: Metabolic/Fluid and Electrolytes Goal: Electrolytes maintained within normal limits Outcome: Progressing Goal: Glucose maintained within prescribed range Outcome: Progressing Problem: Lack of Knowledge Goal: Ability to develop a pain control plan will improve Outcome: Progressing Problem: Medication Goal: Satisfaction with pain management medication regimen will improve Outcome: Progressing Problem: Sensory Goal: Ability to identify factors that increase pain levels will improve while working to decrease the patient's pain levels Outcome: Progressing Problem: Coping Goal: Ability to cope will improve Outcome: Progressing Problem: Health Behavior Goal: Identification of resources available to assist in meeting health care needs will improve Outcome: Progressing Problem: Respiratory Goal: Achieves optimal ventilation and oxygenation Outcome: Progressing Goal: Ability to maintain a clear airway will improve Outcome: Progressing Problem: Skin/Tissue Integrity Goal: Incisions, wounds, or drain sites healing without S/S of infection Outcome: Progressing Problem: Infection Goal: Absence of infection during hospitalization Outcome: Progressing Problem: Isolation Lack of Knowledge Goal: Knowledge of risk factors and measures for prevention of condition will improve Outcome: Progressing Problem: Isolation Physical Regulation Goal: Isolation- Spread of further infection will be prevented Outcome: Progressing Goal: Isolation- Complications related to the disease process, condition, or treatment will be avoided or minimized. Outcome: Progressing Problem: Hematologic Goal: Maintains hematologic stability Outcome: Progressing Problem: Skin Integrity Impairment Risk Goal: Mobility will improve Outcome: Progressing Goal: Understanding of ways to prevent future skin breakdown will improve Outcome: Progressing Goal: Nutritional status will improve Outcome: Progressing Goal: Risk for impaired skin integrity will decrease Outcome: Progressing Problem: Genitourinary Goal: Absence of urinary retention Outcome: Progressing Goals: Clinical Goals for the Shift: promote care and comfort, monitor vs Summary: * Plan of Care - Dariana Cramer RN - 12/01/2023 2:31 PM CDT 12/01/23 1430 Discharge Planning Support System Spouse/Significant Other;Family members (Jean Claude/spouse [phone]) Anticipated discharge level of care Private residence Does the patient need discharge transport arranged? No (Jean Claude/spouse [phone]) Post Acute Care Plan Home Care Services N/A OP Services N/A DME N/A Post Acute Care Facility N/A CM Progression of Care Update Per Medical Chart/Rounds/IDR: Patient is not medically ready for discharge ADD: 12-07 Discharge Barriers: No anticipated discharge barrier Education Needs Identified (plan): Pending Infectious workup. Continue IV abx. Pending ID final rec Pending PT/OT rec F/U Appointments: Pending Patient's Identified Problem/Goal Problem:?Ensure acute medical needs are met and that patient has a safe discharge plan. Goal:?Secure a discharge plan that patient/family are agreeable with?and ensure patient has continuum of care. Patient and/or family are agreeable with plan. workers compensation manager will continue to follow and assist with discharge planning as needed. If any further discharge needs arise, please contact the covering embedded case manager. Dariana Cramer RN,BSN,CM * Consults, Subsequent - Fernando Dooley MD - 12/01/2023 12:24 PM CDT Private GI Subsequent Consult Hospital Day: 7 Subjective - Infectious work-up negative/pending to date. Waiting on histoplasma studies and ,ycobacterial cultures - Appetite improving, symptoms overall unchanged Objective Physical Exam: Vitals: 12/01/23 0805 BP: 131/67 Pulse: 90 Resp: 18 Temp: 36.7 ??C (98 ??F) SpO2: 97% Wt Readings from Last 3 Encounters: 11/26/23 58.7 kg (129 lb 8 oz) 11/25/23 58.2 kg (128 lb 3.2 oz) 11/13/23 63 kg (139 lb) General Appearance: Alert, cooperative, no distress. HEENT: Normocephalic, without obvious abnormality, atraumatic. No scleral icterus or conjunctival pallor. Lungs: Clear to auscultation bilaterally, respirations unlabored Cardiovascular: Regular rate and rhythm, no murmur. Abdomen: Soft, non-tender, bowel sounds active all four quadrants, no masses, no organomegaly, non-distended Extremities: No cyanosis or edema, no clubbing Skin: No rash Neurologic: Alert and oriented x 4. Psychiatric: Normal mood and affect Recent Labs Lab Units 11/30/23 2255 11/29/23 2051 11/29/23 0046 HEMOGLOBIN g/dL 8.3* 7.5* 8.0* Impression: 63 y.o. female PMH HTN, T2DM, s/p cholecystectomy, a large adnexal mass c/f malignancy, and suspected crohn???s colitis who presents for active colitis. 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 Recommendations: - f/u infectious studies - Abx per primary/ID - If infectious work-up is positive for disseminated fungal dz or mycobacterial disease, would recommend surgical intervention as pt is not a candidate for advanced therapies. If infectious work-up unrevealing we asif lconsider IFX later this admission, although the pulmonary infiltrates on imaging remain concerning. We will continue to follow-up with you. Thank you for involving us in the care of this patient. If you have any questions, please call the private GI pager during weekdays or the [facility] phone during after hours and weekends. Fernando Dooley MD Gastroenterology Fellow * Consults, Subsequent - Laury Iverson MD - 12/01/2023 9:05 AM CDT Infectious Disease Followup Note Contact Information: Please see [facility] Treatment Team listing for up-to-date contact information. Requesting Physician: Álvaro Radford MD Reason for Consult: Diagnostic and treatment recommendations, as well as assistance with follow up care. Interval events: Pt feeling OK, no abdominal pain, multiple BMs this morning . Underwent bronchoscopy without complication Afebrile, WBC stably elevated at 17.2 with stable neutrophil predominance and immature granulocytes Objective Vitals: 24hr Min/Max: Temp Min: 36.7 ??C (98 ??F) Max: 36.8 ??C (98.2 ??F) Pulse Min: 89 Max: 101 BP Min: 131/67 Max: 141/66 Resp Min: 18 Max: 20 SpO2 Min: 95 % Max: 97 % Physical Exam: General: Alert, in bed, interactive and cooperative with exam. Eyes and Mouth: pupils are equal and round, sclera anicteric, Lungs: Breathing comfortably on room air. Clear to auscultation anteriorly Cardiac: normal rate, regular rhythm, no murmurs appreciated Abd: soft, nontender, nondistended MSK: no joint swelling or effusions are noted. Neuro: Facial features are symmetric, speech is clear and fluent and appropriate. Access: IV site is clean/dry and intact Lab/Radiology/Diagnostic Review: I reviewed the following laboratory and imaging result(s). Micro: VRE screen negative T spot from 10/26 negative. C diff GDH/toxin negative Serum tests: Cryptococcal antigen in serum negative Blastomyces antibody EIA serum negative Blood cultures 11/26 blood cultures and mycobacterial cultures no growth to date 11/28 mold blood cultures in process 11/27 results from bronchoscopy Bronchoalveolar lavage from left upper lobe: Gram stain: Few PMNs, few epithelial cells, other cellular material, rare mixed bacterial noah Bacterial Culture: Upper respiratory noah Legionella culture pending negative pneumonia PCR, CMV PCR, adenovirus PCR PCP DFA negative Microbiology culture x2 no growth Mycobacterial culture x2- no AFB seen, no growth Pending studies include: Histoplasma antibody blood Aspergillus galactomannan Histoplasma urine antigen Hematology/Chemistry: Na 135 Cl 100 BUN 10 K 3.9 CO2 25 Cr 0.74 Mg 1.8, G AST - ALT - Alk Phos - Ca 8.4 TP - Alb - Total Bili: - Direct Bili: - \ Hgb 8.3 / WBC 17.2 -------- Plt 382 / MCV 84.1 \ Lab Results Component Value Date [id number] Nonreactive 11/27/2023 HEPBSAG Nonreactive 10/27/2023 HEPBSAB Nonreactive 10/27/2023 Imaging: CT C/A/P 11/25: FRANKLIN peribronchovascular nodules, some of which are cavitating & associated smooth interlobular septal line thickening. Supraclavicular, mediastinal and hilar supraclavicular lymphadenopathy. Small L pleural effusion with pleural thickening. Findings new since 10/02/23. Continued worsening of contained perforation of proximal sigmoid colon. Improving hepatic and splenic abscesses. Chest x-ray from 11/27 notable for right-sided pulmonary nodules and pleural effusion Assessment/Plan This is a 63-year-old woman with a history of inflammatory bowel disease which has been most recently complicated by cholecystitis status post cholecystectomy and sigmoid colon microperforation, found to also have splenic and hepatic microabscesses all in the context significant weight loss. This admission, CT scan identified a new nodules predominantly in the upper left lobe with associated left-sided pleural effusion. Notably these findings are new from 10/01. It is difficult to know if there is one unifying process here or if the patient has become so deconditioned from malnutrition due to her underlying IBD complicated by colonic perforation that she hasbecome at risk for a new pulmonary infections\ (2 processes). Many studies from bronchoscopy have re sulted as negative. Highest on my differential for a unifying process includes histoplasmosis and mycobacterial infection. We still await serum and urine tests for Histoplasmosis. Tb highly unlikely given the patient's lack of traditional risk factors, although non-tuberculous mycobacterial infection possible-- we await mycobacterial cultures from the bronchoscopy as well which may take 7-14 daysto grow. It is also plausible that her microabscesses are bacterial and related to her prior perforation (supported by improvement on antibiotics), and that her pulmonary findings represent somethingseparate such as pulmonary sarcoid, necobiotic nodules from underlying IBD or vasculitis. Initial workup has been negative thus far, with studies pending as noted above. Without an alternative diagnosis for her pulmonary process, I would not recommend infliximab at this time. - continue ciprofloxacin 500 mg BID and metronidazole 500mg BID for colonic perforation and worsening phlegmon identified on CT - appreciate multidisciplinary discussions about options moving forward to address the patient's underlying IBD - please obtain ECG for QTc monitoring - continue to await results as noted above Laury Iverson MD MS Infectious Diseases Team 4 Thank you for the opportunity to participate in the care of your patient. Please chat message in [employer] or call the ID team 4 attending with any questions or concerns at [phone] during daytime hours. If there is an emergency after hours then the ID fellow consular officer can be reached at [phone]. Supplementary Attestation Medical Decision Making: Today, I am treating the patient for pulmonary nodules, colonic perforation, hepatic and splenic abscesses which can cause sepsis, malnutrition, in the short-term future in the absence of appropriate treatment, as described in the note., The patient is being intensively monitored for antimicrobial toxicity from ciprofloxacin and metronidazole with the following tests: CBC, CBC, ECG for QTC monitoring., and Discussed the risk/benefit of infliximab initiation versus surgical intervention procedure/surgery with the patient as described in the note. * Medical Student - Amanda Westfall - 12/01/2023 7:38 AM CDT Medicine Daily Progress Note Chief complaint: failure to thrive, IBD with contained perf, adnexal mass Interval History: NAEON Poor sleep 2/2 throat pain, improved after acetaminophen PRN. Not interested in sleep aid like melatonin b/c wants to be able to wake up in night to go to bathroom. Cough improved, complaining of throat pain and drainage 2/2 bronch. Interested in trying magic mouthwash. Improving fecal continence. 1x hemoptysis (<1/4 teaspoon) noted iso bronch on 11/27. Objective Vital Signs: 24hr Min/Max: Temp Min: 36.7 ??C (98.1 ??F) Max: 36.9 ??C (98.4 ??F) Pulse Min: 96 Max: 108 BP Min: 115/59 Max: 133/64 Resp Min: 17 Max: 18 SpO2 Min: 96 % Max: 100 % Intake/Output: Tolerating PO. 5 nonbloody, well formed bowel movements yesterday. Physical Exam: General appearance: no acute distress, tearful HEENT: NCAT, MMM, anicteric Lungs: L sided lung sounds diminished. no w/r/r, non-labored Heart: RRR, S1, S2 normal, no murmur, rub or gallop. JVP not elevated, no LE edema Abdomen: soft, full, LLQ mildly tender to palp; bowel sounds present all 4 quadrants Extremities: extremities normal, warm and well-perfused, equal pulses Skin: warm and dry Neurologic: No abnormal movements, non-focal exam Current Medications: Current Facility-Administered Medications: acetaminophen (TYLENOL) tablet 650 mg, 650 mg, oral, Q4H PRN, 650 mg at 11/28/23 0651 benzonatate (TESSALON) capsule 100 mg, 100 mg, oral, TID PRN, 100 mg at 11/28/23 0651 Carrier Fluids for Secondary Infusion - 0.9% Sodium Chloride, 30 mL, intravenous, PRN ciprofloxacin (CIPRO) tablet 500 mg, 500 mg, oral, BID - special, 500 mg at 11/28/23 0621 dextrose gel in packet 15 g, 15 g, oral, Q15 Min PRN OR dextrose (D10W) 10% bolus 250 mL, 250 mL, intravenous, Q15 Min PRN enoxaparin (LOVENOX) syringe 40 mg, 40 mg, subcutaneous, Daily-2100, 40 mg at 11/26/23 2140 folic acid (FOLVITE) tablet 1 mg, 1 mg, oral, Daily glucagon injection 1 mg, 1 mg, intramuscular, Q30 Min PRN insulin lispro (HumaLOG, ADMELOG) 100 unit/mL injection 0-4 Units, 0-4 Units, subcutaneous, Nightly, 1 Units at 11/26/23 2349 insulin lispro (HumaLOG, ADMELOG) 100 unit/mL injection 0-5 Units, 0-5 Units, subcutaneous, TID with meals, 1 Units at 11/27/23 1306 lidocaine (PF) (XYLOCAINE) 20 mg/mL (2 %) preservative free injection 4 mL, 4 mL, other, Once (RT) lidocaine (PF) (XYLOCAINE) 20 mg/mL (2 %) preservative free injection 4 mL, 4 mL, nebulization, Once (RT) losartan (COZAAR) tablet 25 mg, 25 mg, oral, Daily, 25 mg at 11/27/23 0857 metroNIDAZOLE (FLAGYL) tablet 500 mg, 500 mg, oral, BID, 500 mg at 11/27/232103 multivitamin 10 mL in sodium chloride 0.9% 500 mL IVPB, , intravenous, Daily ondansetron (ZOFRAN) injection 4 mg, 4 mg, intravenous, Q4H PRN pantoprazole DR (PROTONIX) extended release tablet 40 mg, 40 mg, oral, Daily, 40 mg at 11/27/23 08 phytonadione (VITAMIN K1) 2.5 mg in dextrose 5% 50 mL IVPB, 2.5 mg, intravenous, Once polyethylene glycol (MIRALAX) packet 17 g, 17 g, oral, Daily PRN pyridoxine (VITAMIN B6) tablet 100 mg, 100 mg, oral, Daily ramelteon (ROZEREM) tablet 8 mg, 8 mg, oral, Nightly PRN sodium chloride 0.9% flush 0.5-20 mL, 0.5-20 mL, intra-catheter, PRN thiamine (VITAMIN B-1) 500 mg in sodium chloride 0.9% 100 mL IVPB, 500 mg, intravenous, TID [START ON 11/29/2023] thiamine (VITAMIN B1) tablet 100 mg, 100 mg, oral, Daily Lab/Radiology/Diagnostic Review: Labs: Lab Results Component Value Date WBC 17.2 (H) 11/30/2023 HGB 8.3 (L) 11/30/2023 HCT 27.5 (L) 11/30/2023 MCV 84.1 11/30/2023 LABPLAT 382 11/30/2023 Lab Results Component Value Date GLUCOSE 200 (H) 12/01/2023 CALCIUM 8.4 (L) 11/30/2023 SODIUM 135 11/30/2023 POTASSIUM 3.9 11/30/2023 CO2 25 11/30/2023 CHLORIDE 100 11/30/2023 BUNSER 10 11/30/2023 CREATININE 0.74 11/30/2023 CRP 11/27: 173 ESR 11/27: 97 Fecal calprotectin: pending Fecal leukocytes: few ID labs - Blood cultures 11/26: NGTD - mycobacterial AFB bcx 11/26: NGTD - Mold blood culture 11/28: NGTD - Aspergillus galactomannan antigen 11/27: in process - Blastomyces antibody blood 11/26: negative - Histoplasma antibody blood 11/26: in process - Histoplasma antigen urine: in process - Cryptococcal antigen blood 11/26: negative - Giardia antigen stoop 10/03: negative - Cryptosporidium antigen 10/03: negative - Stool O&P 10/04: negative - HIV 11/26: negative - C. diff stool 11/25: negative - RPP 11/24: negative - T Spot 10/26: negative - EBV 10/26: positive nuclear ab, positive IgG, negative IgM BAL 11/28/23 - Adenovirus PCR BAL: negative - Legionella culture BAL 11/27: pending - AFB stain BAL L upper lobe: negative - fungal culture BAL 11/27: NGTD - Pneumocystis DFA BAL: no p. Jirovecii - Aerobic culture and gram stain L upper lobe washing: oropharyngeal contamination - CMV PCR: negative - Pneumonia PCR: negative - Surg path: pending - Cytology: pending Assessment/Plan Ms. Russo is a 63 y.o. female with presents with failure to thrive, IBD with contained sigmoid microperf, adnexal mass, new cavitating pulmonary lesions admitted for coordination of care. # Pulmonary nodules # Pleural effusion Patient with 1 week dry cough, no new fevers/chills, 65 lb weight loss over past year, hepatic and splenic abscesses. CT 11/25 with cavitating L upper lobe nodules, interlobular septal line thickening, regional lymphadenopathy, L pleural effusion and pleural thickening. TB spot negative in early October. Need to rule out mycobacterial disease before can proceed with anti-TNF tx for IBD. BAL 11/27. - pulmonology consult: labs pending, work up negative thus far. - ID consult: labs pending, work up negative thus far. - Continue tessalon pearls TID, phenol, start magic mouthwash # IBD (UC vs CD) # Perforated Sigmoid Diverticulitis UC diagnosed 2022, GI now suspecting for CD. Symptoms well controlled until early this summer, withonset of 5+ daily nonbloody diarrhea, fecal incontinence, 65 lb weight loss, poor appetite, early satiety. Imaging perforated sigmoid diverticulitis, has been managed conservatively. Has been taking mesalamine suppositories at home. Saw Dr Perez with CRS during October admission and had outpatient visit with him scheduled later in November to discuss elective colectomy. Zosyn (10/02-10/03, 11/03-11/05), bactrim (10/04-11/03), flagyl (10/04- 11/03), augmentin (10/04-11/03), cipro (11/06-), flagyl (11/06-). ESR and CRP elevated. CT CAP 11/25 with worsening contained perf. LLQ tender on exam but not peritonitic. - Cipro 500 PO BID (11/06-), flagyl 500 PO BID (11/06-) - fecal calprotectin pending - IBD treatment pending infectious work up. - Appreciate continued GI recs # Liver and spleen microabscesses Noted on recent imaging. Recent balaji in August, per op note GB was full of stones and difficult to grasp but low suspicion for retained gallstone as nothing seen on imaging and microabscesses are intrahepatic. During October admission IR consulted, abscesses too small to drain. Improved on 11/25 CT. - continue cipro 500 PO BID (11/06-), flagyl 500 PO BID (11/06-) - LFTs today # hyponatremia # hypochloremia # hypocalcemia Urine lytes suggest appropriately concentrating urine. Hypocalcemia iso presumed hypoalbuminemia but iCal 11/29 also low. AM cortisol yesterday wnl. - ctm BMP + mag, phos - Renal function panel - thyroid panel # Adnexal mass Large multiseptated O RADS 3 lesion, likely arising from the right ovary found incidentally on imaging in August. Following with [facility] registrar onc, Dr. Rhodes. 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 Meets ASPEN criteria for severe chronic malnutrition. - nutrition consult - Thiamine 500 IV x 3 loading then 100 mg daily - daily folic acid - daily multivitamin - daily B8 100 mg - patient may require supplemental enteral nutrition while she works up to consuming 50-60% of energy needs. - q3 day T&S, hgb >7 - Weight (last measured on admit) # Hemochromatosis Iron deposition in liver noted incidentally on recent imaging. Elevated ferritin to 1868 iso acute inflammatory process. History of 3 lifetime blood transfusions, most likely secondary to iron infusions. # T2DM A1C in October was 5.7. Managed on metformin 500 q24. - SSI # HTN Takes losartan 25 at home Code - Fall Diet - Carb consistent DVT prophylaxis - subq lovenox, SCDs. Note that patient is at increased risk of VTE 2/2 IBD. Dispo - Cosigned by Álvaro Radford MD at 12/02/2023 5:08 AM CDT * Consults, Subsequent - Marlene Pierre MD - 12/01/2023 7:36 AM CDT Pulmonary Subsequent Consult Subjective Chief complaint of weightloss. Interval History: - BAL PJP DFA negative - BAL AFB stain negative - Feels well this morning. A bit of hemoptysis yesterday. Not SOB on room air Scheduled Meds:ciprofloxacin, 500 mg, oral, BID - special enoxaparin, 40 mg, subcutaneous, Daily-2100 folic acid, 1 mg, oral, Daily insulin lispro, 0-4 Units, subcutaneous, Nightly insulin lispro, 0-5 Units, subcutaneous, TID with meals losartan, 25 mg, oral, Daily metroNIDAZOLE, 500 mg, oral, BID multivitamin 10 mL in sodium chloride 0.9% 500 mL IVPB, , intravenous, Daily pantoprazole DR, 40 mg, oral, Daily pyridoxine, 100 mg, oral, Daily thiamine, 100 mg, oral, Daily Continuous Infusions: PRN Meds:. acetaminophen al & mag hydroxide mluevtxvxpd-zianuugpofmrkwr-qtqedvquq-nystatin benzonatate sodium chloride 0.9% dextrose OR dextrose glucagon loperamide ondansetron phenoL polyethylene glycol ramelteon sodium chloride 0.9% No intake/output data recorded. Objective Vitals: Vitals: 12/01/23 0452 BP: 137/67 Pulse: 89 Resp: 20 Temp: 36.8 ??C (98.2 ??F) SpO2: 95% Physical Exam: General: Lying in bed, NAD HEENT: Clear oropharynx, no lesions, MMM Cardiovascular: RRR no murmurs Chest: crackles on left, decreased left basilar lung sounds, clear on right Abdomen: soft, distended Extremity: WWP, no edema Skin: no rashes Data: I have reviewed labs from last 24 hours. Pertinent findings include: - WBC 17.2 - BAL DFA and AFB stain negative - BAL cultures pending, TBBX pathology pending Recent Results (from the past 24 hour(s)) Cortisol Collection Time: 11/30/23 8:15 AM Result Value Ref Range Cortisol 20.1 (H) 4.8 - 19.5 mcg/dL Calcium, ionized Collection Time: 11/30/23 8:15 AM Result Value Ref Range Calcium, Ionized 4.30 (L) 4.50 - 5.10 mg/dL POCT glucose Collection Time: 11/30/23 9:06 AM Result Value Ref Range Glucose, POC 164 70 - 199 mg/dL POCT glucose Collection Time: 11/30/23 11:53 AM Result Value Ref Range Glucose, POC 202 (H) 70 - 199 mg/dL Glucose comment 1 Glu2: RN/MD Notified POCT glucose Collection Time: 11/30/23 5:26 PM Result Value Ref Range Glucose, POC 142 70 - 199 mg/dL POCT glucose Collection Time: 11/30/23 9:11 PM Result Value Ref Range Glucose, POC 147 70 - 199 mg/dL Basic metabolic panel Collection Time: 11/30/23 10:55 PM Result Value Ref Range Sodium 135 135 - 145 mmol/L Potassium, pl 3.9 3.3 - 4.9 mmol/L Chloride 100 97 - 110 mmol/L CO2 25 22 - 32 mmol/L Anion gap 10 2 - 15 mmol/L BUN 10 6 - 25 mg/dL Creatinine 0.74 0.60 - 1.10 mg/dL Glucose 141 70 - 199 mg/dL Calcium 8.4 (L) 8.5 - 10.3 mg/dL CBC with auto differential Collection Time: 11/30/23 10:55 PM Result Value Ref Range WBC 17.2 (H) 3.8 - 9.9 K/cumm Hgb 8.3 (L) 11.9 - 15.5 g/dL Hct 27.5 (L) 35.6 - 45.5 % Plt 382 150 - 400 K/cumm MPV 9.4 9.1 - 12.3 fL RBC 3.27 (L) 3.90 - 5.20 M/cumm MCV 84.1 81.3 - 96.4 fL MCH 25.4 (L) 27.1 - 33.3 pg MCHC 30.2 (L) 32.3 - 35.7 g/dL RDW CV 18.3 (H) 11.1 - 14.9 % RDW SD 56.6 (H) 35.7 - 48.1 fL NRBC abs 0.00 0.00 - 0.01 K/cumm Magnesium Collection Time: 11/30/23 10:55 PM Result Value Ref Range Magnesium 1.8 1.4 - 2.5 mg/dL Phosphorus Collection Time: 11/30/23 10:55 PM Result Value Ref Range Phosphorus, pl 3.0 2.3 - 4.5 mg/dL Differential, auto Collection Time: 11/30/23 10:55 PM Result Value Ref Range Neutrophil abs 13.8 (H) 1.5 - 6.5 K/cumm Imm gran abs 0.1 0.0 - 0.1 K/cumm Lymphocyte abs 2.0 0.8 - 3.3 K/cumm Monocyte abs 1.1 (H) 0.2 - 0.8 K/cumm Eosinophil abs 0.1 0.0 - 0.5 K/cumm Basophil abs 0.1 0.0 - 0.1 K/cumm Neutrophil pct 80.4 % Imm gran pct 0.6 % Lymphocyte pct 11.5 % Monocyte pct 6.4 % Eosinophil pct 0.8 % Basophil pct 0.3 % eGFR Collection Time: 11/30/23 10:55 PM Result Value Ref Range eGFR 90 >=60 mL/min/1.73 m2 I have reviewed independently radiology images from last 24 hours: Pertinent findings include: none Assessment/Plan Consolidation of left upper lobe of lung (CMS/HCC) (HCC) Assessment & Plan Darius Russo is a 63 yo female [...] infectious process given the distribution on imaging. Malignancy less likely given the appearance.Bronch with BAL and TBBX of lingula completed 11/27 with studies pending. - Follow up bronchoscopy cultures and pathology - Follow up pending fungal serologies and blood cultures Pulmonary will continue to follow Cosigned by Eamon Hanks MD at 12/05/2023 5:30 PM CDT Associated attestation - Eamon Hanks MD - 12/05/2023 5:30 PM CDT 12/05/2023 ADDENDUM CORRECTION to 12/01/2023 diagnoses in attestation (see bold and strikethrough) Today, I am treating the patient for lung infiltrates and cavitary lung disease, which is in severeexacerbation, progression, or experiencing treatment side effects, as evidenced by the symptoms andsigns, the need for hospitalization, and additional testing and treatment as described in the note. The lung infiltrates and cavitary lung disease pose a threat to the patient's life and bodily function in the near-term. Eamon Hanks MD ATTENDING ATTESTATION: I personally reviewed and interpreted the recent/new chest imaging studies. I evaluated the recent/new labs, cultures, and other test reports. I reviewed other recent/new notes. Dr. Pierre and I penny examined the patient on 12/01/2023. I agree with the findings assessment and plan of care documented in this note. SUPPLEMENTAL ATTESTATION Today, I am treating the patient for acute hypoxemic respiratory failure w lung infiltrates, which is in severe exacerbation, progression, or experiencing treatment side effects, as evidenced by the symptoms and signs, the need for hospitalization, and additional testing and treatment as described in the note. The respiratory failure and lung infiltrates pose a threat to the patient's life and bodily function in the near-term. I reviewed the results of the labs which show WBC 17, PLT 382, Cr 0.74, few eos. I ordered/requested followup of lung pathology, SpO2 monitoring, and ABG AND CXR monitoring prn. I reviewed the ID and [employer] notes. I independently interpreted the 11/26/[address] which shows FRANKLIN posterior and lingular peribronchovascular opacities with septal thickening along with left pleural effusion and LLL collapse/atelectasis. I discussed the test interpretation and management of patient care, especially the respiratory failure and lung infiltrates, with the primary healthcare team. The patient is at increased risk of complications / morbidity from procedures / tests / treatments that could compromise her respiratory status. I am intensively monitoring the patient for SC enoxaparin toxicity, with assessment of CBC HCT and PLT. Eamon Hanks MD * Plan of Care - Kerline Hartmann RN - 11/30/2023 11:22 PM CDT Goals: Clinical Goals for the Shift: promote care and comfort, monitor vs Summary: Problem: Discharge Planning Goal: Understanding discharge needs will improve Outcome: Progressing Problem: Fall Risk Goal: Ability to state ways to decrease the risk of falls will improve Outcome: Progressing Problem: Skin Integrity Impairment Risk Goal: Mobility will improve Outcome: Progressing Goal: Understanding of ways to prevent future skin breakdown will improve Outcome: Progressing Goal: Nutritional status will improve Outcome: Progressing Goal: Risk for impaired skin integrity will decrease Outcome: Progressing Problem: Lack of Knowledge Goal: Ability to describe self care measures that may prevent or decrease complications related to Type 2 Diabetes will improve Outcome: Progressing Problem: Health Nutrition Goal: Nutritional intake and knowledge related to Diabetes will improve Outcome: Progressing Problem: Neurosensory Goal: Achieves maximal functionality and self care Outcome: Progressing Problem: Musculoskeletal Goal: Return mobility to safest level of function Outcome: Progressing Goal: Maintain proper alignment of affected body part Outcome: Progressing Goal: Return ADL status to a safe level of function Outcome: Progressing Goal: Ability to perform activities at highest level will improve Outcome: Progressing Goal: Mobility, ROM and muscle strength will improve Outcome: Progressing Problem: Metabolic/Fluid and Electrolytes Goal: Electrolytes maintained within normal limits Outcome: Progressing Problem: Respiratory Goal: Achieves optimal ventilation and oxygenation Outcome: Progressing Goal: Ability to maintain a clear airway will improve Outcome: Progressing Problem: Skin/Tissue Integrity Goal: Incisions, wounds, or drain sites healing without S/S of infection Outcome: Progressing Problem: Infection Goal: Absence of infection during hospitalization Outcome: Progressing Problem: Hematologic Goal: Maintains hematologic stability Outcome: Progressing * Provider Query - Michael Huizar MD - 11/30/2023 11:21 AM CDT Clinical Indicators/Treatments: Height: 154.9 cm (5' 1 ) Recorded Wt: 58.7 kg BMI: 24.47 kg/m?? 11/24 HP: 63 y.o. female with PMH IBD (dx UC in 2022, c/f Crohn's now), adnexal mass, HTN, T2DM presenting as direct admit from GI clinic for progressive weight loss. 11/26 RD: Nutrition Status: Patient meets criteria for severe chronic malnutrition, reference AAIM (ASPEN) guidelines. Present on Admission: Yes... IMPRESSION: Patient was 185 lbs, now admits at 125. Patient was 185 lbs in July, saw pictures of patient. Patient states she used to have 5-12 bowel movements a day but hasn't in a few weeks and she takes imodium (2mg) 3 x/day. Patient eats very small quantities however due to loss of appetite, feeling full orstarts to have a really bad cough (CT scan shows interval development of peribronchovascular nodules in the left lung)... AAIM (ASPEN) MALNUTRITION ASSESSMENT: Date of completion: 11/27/2023 ASPEN/AND Malnutrition Screening: Chronic illness or injury severe Subcutaneous Fat Loss Severity: Severe Muscle Mass Loss Severity: Severe Patient Meets Criteria for Severe Malnutrition: Yes NUTRITION FOCUSED PHYSICAL EXAM: Completed... MONITORING/EVALUATION: Appetite, Discharge plans, I/O, Plan of care, Labs Specify a diagnosis that reflects the patient???s nutritional status, and document in the medical record and on the form below. _x__ Severe Malnutrition ___ Malnutrition of other degree, specify below ___ Other explanation of clinical findings, specify below Additional Provider Response: Per RD response and exam/clinical presentation of pt. References: Adult Malnutrition Screening Criteria Criteria for Moderate and Severe Malnutrition: Minimum of 2 of 6 characteristics recommended Characteristics Malnutrition in the Context of ACUTE Illness or Injury < 3 months Malnutrition in the Context of CHRONIC Illness or Injury > 3 months Malnutrition in the Context of Social or Environmental Circumstances Moderate Malnutrition Severe Malnutrition Moderate Malnutrition Severe Malnutrition Moderate Malnutrition Severe Malnutrition 1: Energy intake (as a % of estimated energy requirements) < 75% of estimated energy requirement for >7 days <= 50% of estimated energy requirement for >= 5 days < 75% of estimated energy requirement for >= 1 month <= 75% of estimated energy requirement for >= 1 month < 75% of estimated energy requirement for >= 3 months <= 50% of estimated energy requirement for >= 1 month 2: Weight loss (as a % of weight lost from baseline) 1-2% in 1 wk 5% in 1 mo 7.5% in 3 mo >2% in 1 wk >5% in 1 mo >7.5% in 3 mo 5% in 1 mo 7.5% in 3 mo 10% in 6 mo 20% in 1 yr >5% in 1 mo >7.5% in 3 mo >10% in 6 mo >20% in 1 yr 5% in 1 mo 7.5% in 3 mo 10% in 6 mo 20% in 1 yr >5% in 1 mo >7.5% in 3 mo >10% in 6 mo >20% in 1 yr Physical Findings of 3: Loss of body fat 4: Loss of muscle mass or 5: Fluid accumulation Mild Findings: ? sub q fat ? muscle ? fluid/edema Moderate Findings: ? sub q fat ? muscle ? fluid/edema Mild Findings: ? sub q fat ? muscle ? fluid/edema Severe Findings: ? sub q fat ? muscle ? fluid/edema Mild Findings: ? sub q fat ? muscle ? fluid/edema Severe Findings: ? sub q fat ? muscle ? fluid/edema 6: Reduced Legal Practice Manager Strength n/a Measurably reduced per device standards n/a Measurably reduced per device standards n/a Measurably reduced per device standards Note: Mild Malnutrition has not been defined by ASPEN. Mild malnutrition is a subjective assessmentwith characteristics of malnutrition greater than ???none?? but less than ???moderate.?? Mild malnutrition could be defined as one characteristic outlined above with the established moderate or severe parameters. From the ICD-10-CM Coding Guidelines, use of terms such as likely, suspected, possible, or probable(associated with a specific diagnosis that is being evaluated, monitored, or treated as if it exists) are acceptable and can be coded in the inpatient setting when documented at the time of discharge. This documentation will become part of the patient???s medical record. Sincerely, BONIFACIO Rojo, RN Clinical Game Agent [facility] [email or web address] * Plan of Care - Lidia Khan RN - 11/30/2023 10:14 AM CDT Problem: Discharge Planning Goal: Understanding discharge needs will improve Outcome: Progressing Problem: Fall Risk Goal: Ability to state ways to decrease the risk of falls will improve Outcome: Progressing Goal: Will remain free from falls Outcome: Progressing Goal: Will remain free from injury from falls Outcome: Progressing Problem: Lack of Knowledge Goal: Ability to describe self care measures that may prevent or decrease complications related to Type 2 Diabetes will improve Outcome: Progressing Problem: Health Nutrition Goal: Nutritional intake and knowledge related to Diabetes will improve Outcome: Progressing Problem: Neurosensory Goal: Achieves maximal functionality and self care Outcome: Progressing Problem: Musculoskeletal Goal: Return mobility to safest level of function Outcome: Progressing Goal: Maintain proper alignment of affected body part Outcome: Progressing Goal: Return ADL status to a safe level of function Outcome: Progressing Goal: Ability to perform activities at highest level will improve Outcome: Progressing Goal: Mobility, ROM and muscle strength will improve Outcome: Progressing Problem: Gastrointestinal Goal: Minimal or absence of nausea and vomiting Outcome: Progressing Goal: Maintains or returns to baseline bowel function Outcome: Progressing Goal: Maintains adequate nutritional intake Outcome: Progressing Problem: Metabolic/Fluid and Electrolytes Goal: Electrolytes maintained within normal limits Outcome: Progressing Goal: Glucose maintained within prescribed range Outcome: Progressing Problem: Lack of Knowledge Goal: Ability to develop a pain control plan will improve Outcome: Progressing Problem: Medication Goal: Satisfaction with pain management medication regimen will improve Outcome: Progressing Problem: Sensory Goal: Ability to identify factors that increase pain levels will improve while working to decrease the patient's pain levels Outcome: Progressing Problem: Coping Goal: Ability to cope will improve Outcome: Progressing Problem: Health Behavior Goal: Identification of resources available to assist in meeting health care needs will improve Outcome: Progressing Problem: Respiratory Goal: Achieves optimal ventilation and oxygenation Outcome: Progressing Goal: Ability to maintain a clear airway will improve Outcome: Progressing Problem: Skin/Tissue Integrity Goal: Incisions, wounds, or drain sites healing without S/S of infection Outcome: Progressing Problem: Infection Goal: Absence of infection during hospitalization Outcome: Progressing Problem: Isolation Lack of Knowledge Goal: Knowledge of risk factors and measures for prevention of condition will improve Outcome: Progressing Problem: Isolation Physical Regulation Goal: Isolation- Spread of further infection will be prevented Outcome: Progressing Goal: Isolation- Complications related to the disease process, condition, or treatment will be avoided or minimized. Outcome: Progressing Problem: Hematologic Goal: Maintains hematologic stability Outcome: Progressing Problem: Skin Integrity Impairment Risk Goal: Mobility will improve Outcome: Progressing Goal: Understanding of ways to prevent future skin breakdown will improve Outcome: Progressing Goal: Nutritional status will improve Outcome: Progressing Goal: Risk for impaired skin integrity will decrease Outcome: Progressing Problem: Genitourinary Goal: Absence of urinary retention Outcome: Progressing * Medical Student - Amanda Westfall - 11/30/2023 7:25 AM CDT Medicine Daily Progress Note Chief complaint: failure to thrive, IBD with contained perf, adnexal mass Interval History: NAEON Poor sleep 2/2 throat pain, improved after acetaminophen PRN. Not interested in sleep aid like melatonin b/c wants to be able to wake up in night to go to bathroom. Cough improved, complaining of throat pain and drainage 2/2 bronch. Interested in trying magic mouthwash. Objective Vital Signs: 24hr Min/Max: Temp Min: 36.7 ??C (98.1 ??F) Max: 36.9 ??C (98.4 ??F) Pulse Min: 96 Max: 108 BP Min: 115/59 Max: 133/64 Resp Min: 17 Max: 18 SpO2 Min: 96 % Max: 100 % Intake/Output: Tolerating PO. Several nonbloody bowel movements yesterday, mostly formed Physical Exam: General appearance: no acute distress, tearful HEENT: NCAT, MMM, anicteric Lungs: CTAB no w/r/r, non-labored, Heart: RRR, S1, S2 normal, no murmur, rub or gallop. JVP not elevated, no LE edema Abdomen: soft, full, LLQ mildly tender to palp; bowel sounds present all 4 quadrants Extremities: extremities normal, warm and well-perfused, equal pulses Skin: warm and dry Neurologic: No abnormal movements, non-focal exam Current Medications: Current Facility-Administered Medications: acetaminophen (TYLENOL) tablet 650 mg, 650 mg, oral, Q4H PRN, 650 mg at 11/28/23 0651 benzonatate (TESSALON) capsule 100 mg, 100 mg, oral, TID PRN, 100 mg at 11/28/23 0651 Carrier Fluids for Secondary Infusion - 0.9% Sodium Chloride, 30 mL, intravenous, PRN ciprofloxacin (CIPRO) tablet 500 mg, 500 mg, oral, BID - special, 500 mg at 11/28/23 0621 dextrose gel in packet 15 g, 15 g, oral, Q15 Min PRN OR dextrose (D10W) 10% bolus 250 mL, 250 mL, intravenous, Q15 Min PRN [Held by Provider] enoxaparin (LOVENOX) syringe 40 mg, 40 mg, subcutaneous, Daily-2100, 40 mg at 11/26/23 2140 folic acid (FOLVITE) tablet 1 mg, 1 mg, oral, Daily glucagon injection 1 mg, 1 mg, intramuscular, Q30 Min PRN insulin lispro (HumaLOG, ADMELOG) 100 unit/mL injection 0-4 Units, 0-4 Units, subcutaneous, Nightly, 1 Units at 11/26/23 2262 insulin lispro (HumaLOG, ADMELOG) 100 unit/mL injection 0-5 Units, 0-5 Units, subcutaneous, TID with meals, 1 Units at 11/27/23 1306 lidocaine (PF) (XYLOCAINE) 20 mg/mL (2 %) preservative free injection 4 mL, 4 mL, other, Once (RT) lidocaine (PF) (XYLOCAINE) 20 mg/mL (2 %) preservative free injection 4 mL, 4 mL, nebulization, Once (RT) losartan (COZAAR) tablet 25 mg, 25 mg, oral, Daily, 25 mg at 11/27/23 0857 metroNIDAZOLE (FLAGYL) tablet 500 mg, 500 mg, oral, BID, 500 mg at 11/27/23 210 multivitamin 10 mL in sodium chloride 0.9% 500 mL IVPB, , intravenous, Daily ondansetron (ZOFRAN) injection 4 mg, 4 mg, intravenous, Q4H PRN pantoprazole DR (PROTONIX) extended release tablet 40 mg, 40 mg, oral, Daily, 40 mg at 11/27/23 0857 phytonadione (VITAMIN K1) 2.5 mg in dextrose 5% 50 mL IVPB, 2.5 mg, intravenous, Once polyethylene glycol (MIRALAX) packet 17 g, 17 g, oral, Daily PRN pyridoxine (VITAMIN B6) tablet 100 mg, 100 mg, oral, Daily ramelteon (ROZEREM) tablet 8 mg, 8 mg, oral, Nightly PRN sodium chloride 0.9% flush 0.5-20 mL, 0.5-20 mL, intra-catheter, PRN thiamine (VITAMIN B-1) 500 mg in sodium chloride 0.9% 100 mL IVPB, 500 mg, intravenous, TID [START ON 11/29/2023] thiamine (VITAMIN B1) tablet 100 mg, 100 mg, oral, Daily Lab/Radiology/Diagnostic Review: Labs: Recent Labs Lab Units 11/28/2310911/26/23215711/25/232251 HEMOGLOBIN g/dL 7.8* 8.4* 8.6* HEMATOCRIT % 25.5* 27.2* 28.1* WBC K/cumm 14.4* 20.6* 16.6* PLATELETS K/cumm 434* 459* 430* Recent Labs Lab Units 11/28/2310911/26/23215711/25/23 2252 SODIUM mmol/L 134* 127* 130* POTASSIUM PLASMA mmol/L 4.1 4.3 4.6 CHLORIDE mmol/L 98 90* 95* CO2 mmol/L 28 26 26 ANIONGAP mmol/L 8 11 9 BUN SERUM mg/dL 15 19 18 CREATININE mg/dL 0.78 0.91 0.81 CALCIUM mg/dL 8.3* 8.6 8.7 MAGNESIUM mg/dL 2.0 1.8 2.0 Recent Labs Lab Units 11/28/23 0110 11/25/23 2252 APTT sec 30 36 INR 1.62* 1.72* CRP 11/27: 173 ESR 11/27: 97 Fecal calprotectin: pending Fecal leukocytes: few ID labs - Blood cultures 11/26: NGTD - mycobacterial AFB bcx 11/26: NGTD - Mold blood culture 11/28: NGTD - Aspergillus galactomannan antigen 11/27: in process - Blastomyces antibody blood 11/26: negative - Histoplasma antibody blood 11/26: in process - Histoplasma antigen urine: in process - Cryptococcal antigen blood 11/26: negative - Giardia antigen stoop 10/03: negative - Cryptosporidium antigen 10/03: negative - Stool O&P 10/04: negative - HIV 11/26: negative - C. diff stool 11/25: negative - RPP 11/24: negative - T Spot 10/26: negative - EBV 10/26: positive nuclear ab, positive IgG, negative IgM BAL 11/28/23 - Adenovirus PCR BAL: negative - Legionella culture BAL 11/27: pending - AFB stain BAL L upper lobe: negative - fungal culture BAL 11/27: NGTD - Pneumocystis DFA BAL: no p. Jirovecii - Aerobic culture and gram stain L upper lobe washing: oropharyngeal contamination - CMV PCR: negative - Pneumonia PCR: negative - Surg path: pending - Cytology: pending Assessment/Plan Ms. Russo is a 63 y.o. female with presents with failure to thrive, IBD with contained sigmoid microperf, adnexal mass, new cavitating pulmonary lesions admitted for coordination of care. # Pulmonary nodules # Pleural effusion Patient with 1 week dry cough, no new fevers/chills, 65 lb weight loss over past year, hepatic and splenic abscesses. CT 11/25 with cavitating L upper lobe nodules, interlobular septal line thickening, regional lymphadenopathy, L pleural effusion and pleural thickening. TB spot negative in early October. Need to rule out mycobacterial disease before can proceed with anti-TNF tx for IBD. BAL 11/27. - pulmonology consult: labs pending, work up negative thus far. - ID consult: labs pending, work up negative thus far. - Continue tessalon pearls TID, phenol, start magic mouthwash # IBD (UC vs CD) # Perforated Sigmoid Diverticulitis UC diagnosed 2022, GI now suspecting for CD. Symptoms well controlled until early this summer, withonset of 5+ daily nonbloody diarrhea, fecal incontinence, 65 lb weight loss, poor appetite, early satiety. Imaging perforated sigmoid diverticulitis, has been managed conservatively. Has been taking mesalamine suppositories at home. Saw Dr Perez with CRS during October admission and had outpatient visit with him scheduled later in November to discuss elective colectomy. Zosyn (10/02-10/03, 11/03-11/05), bactrim (10/04-11/03), flagyl (10/04- 11/03), augmentin (10/04-11/03), cipro (11/06-), flagyl (11/06-). ESR and CRP elevated. CT CAP 11/25 with worsening contained perf. LLQ tender on exam but not peritonitic. - Cipro 500 PO BID (11/06-), flagyl 500 PO BID (11/06-) - fecal calprotectin pending - IBD treatment pending infectious work up. - Appreciate continued GI recs # Liver and spleen microabscesses Noted on recent imaging. Recent balaji in August, per op note GB was full of stones and difficult to grasp but low suspicion for retained gallstone as nothing seen on imaging and microabscesses are intrahepatic. During October admission IR consulted, abscesses too small to drain. Improved on 11/25 CT. - continue cipro 500 PO BID (11/06-), flagyl 500 PO BID (11/06-) # hyponatremia # hypochloremia # hypocalcemia Urine lytes suggest appropriately concentrating urine. Hypocalcemia iso hypoalbuminemia. 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 Following with secondary school registrar onc, Dr. Rhodes. 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 Meets ASPEN criteria for severe chronic malnutrition. - nutrition consult - Thiamine 500 IV x 3 loading then 100 mg daily - daily folic acid - daily multivitamin - daily B8 100 mg - patient may require supplemental enteral nutrition while she works up to consuming 50-60% of energy needs. - q3 day T&S, hgb > 7 # Hemochromatosis Iron deposition in liver noted incidentally on recent imaging. Elevated ferritin to 1868 iso acute inflammatory process. History of 3 lifetime blood transfusions, most likely secondary to iron infusions. # T2DM A1C in October was 5.7. Managed on metformin 500 q24. - SSI # HTN Takes losartan 25 at home Code - Fall Diet - Carb consistent DVT prophylaxis - subq lovenox, SCDs. Note that patient is at increased risk of VTE 2/2 IBD. Dispo - Cosigned by Suhail Alfredo MD at 11/30/2023 5:21 PM CDT * Plan of Care - Kerline Hartmann RN - 11/29/2023 7:54 PM CDT Problem: Discharge Planning Goal: Understanding discharge needs will improve Outcome: Progressing Problem: Fall Risk Goal: Ability to state ways to decrease the risk of falls will improve Outcome: Progressing Problem: Skin Integrity Impairment Risk Goal: Mobility will improve Outcome: Progressing Goal: Understanding of ways to prevent future skin breakdown will improve Outcome: Progressing Goal: Nutritional status will improve Outcome: Progressing Goal: Risk for impaired skin integrity will decrease Outcome: Progressing Problem: Lack of Knowledge Goal: Ability to describe self care measures that may prevent or decrease complications related to Type 2 Diabetes will improve Outcome: Progressing Problem: Musculoskeletal Goal: Return mobility to safest level of function Outcome: Progressing Goal: Maintain proper alignment of affected body part Outcome: Progressing Goal: Return ADL status to a safe level of function Outcome: Progressing Goal: Ability to perform activities at highest level will improve Outcome: Progressing Goal: Mobility, ROM and muscle strength will improve Outcome: Progressing Problem: Respiratory Goal: Achieves optimal ventilation and oxygenation Outcome: Progressing Goals: Clinical Goals for the Shift: Monitor vitals and labs, promote care and safety Summary: * Initial Assessments - Shaila Cramer LCSW - 11/29/2023 1:24 PM CDT Social Work Assessment Clinical Dx: Splenic abscess Past Medical History: Date of last inpatient admission: Previous admit date: 11/04/2023 Number of inpatient admissions in past year: 3 Reason for Current Hospitalization (Pt/Caregiver Stated): PCP recommended to get true dx (11/26/23954) Patient Information: Information Obtained From: Patient Marital Status: Does Pt have Legal Guardian, Surrogate Decision Maker or Healthcare Agent? 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) Race: White/ Ethnicity: Non- Sexual Orientation : Straight Gender Identity: Female Service : None (11/26/23954) Current Situation: Current Situation Education Level : College Degree How do you Pay for Medication: Insurance Current Transportation: Own vehicle, Family/friends What do you do with your Free Time: Working in the yard with spouse (11/26/23954) Legal History: Legal History Legal Information : No legal issues (11/26/23954) Support Systems and Spirituality: Support Systems and Spirituality Support System: Spouse Spouse Name/Contact Information: spouseJean Claude ([phone]) Participation from Patient's Support System: son, daughter, sister Do you have a Faith Preference or Affiliation?: Yes Preference/Affiliation : Buddhist Are there any Faith Practices that are important to maintain while admitted?: No Do you have Cultural Factors that are important to you?: No History of physical abuse? : No History of physically abusing others? : No History of sexual abuse?: No History of sexually abusing others? : No History of Mental/Emotional Abuse? : No (11/26/23954) Strengths, Assets, Liabilities and Stressors: Strengths, Assets, Liabilities, and Stressors Strengths (Must Choose Two): Vocational interests, i.e., hobbies, Access to housing/residential stability, Interpersonal relationships and supports,i.e., family, friends, peers, Cultural/spiritual/jainism and community involvement, Financial stability Patient Assets: Home, Income, Supportive family, Insured, Education, Transportation Does Pt have access to Employee Assistance Program: No Patient Barriers : Poor physical health Current Stressors: Chronic illness (11/26/23954) SDOH Transportation Needs: No Transportation Needs (11/29/2023) PRAPARE - Transportation Lack of Transportation (Medical): No Lack of Transportation (Non-Medical): No Financial Resource Strain: Low Risk (11/29/2023) Overall Financial Resource Strain (CARDIA) Difficulty of Paying Living Expenses: Not hard at all Housing Stability: Low Risk (11/29/2023) Housing Stability Vital Sign Unable to Pay for Housing in the Last Year: No Number of Times Moved in the Last Year: 0 Homeless in the Last Year: No Social Connections: Moderately Integrated (11/29/2023) Social Connection and Isolation Panel [NHANES] Frequency of Communication with Friends and Family: More than three times a week Frequency of Social Gatherings with Friends and Family: More than three times a week Attends Faith Services: 1 to 4 times per year Active Member of Clubs or Organizations: No Attends Club or Organization Meetings: Never Marital Status: Food Insecurity: No Food Insecurity (11/29/2023) Hunger Vital Sign Worried About Running Out of Food in the Last Year: Never true Ran Out of Food in the Last Year: Never true Tobacco Use: Low Risk (11/25/2023) Patient History Smoking Tobacco Use: Never Smokeless Tobacco Use: Never Passive Exposure: Not on file Alcohol Use: Not At Risk (11/13/2023) AUDIT-C Frequency of Alcohol Consumption: Never Average Number of Drinks: Patient does not drink Frequency of Binge Drinking: Never PHQ Screening Over the last 2 weeks, how often have you been bothered by any of the following problems? Little Interest or Pleasure in Doing Things: Not at all Feeling Down, Depressed, or Hopeless: Not at all PHQ-2 Total Score (If total score is 3 or more points, staff should administer the PHQ-9): 0 Over the past 2 weeks, how often have you been bothered by any of the following problems? Little Interest or Pleasure in Doing Things: Not at all Feeling Down, Depressed, or Hopeless: Not at all PHQ-2 Total Score (If total score is 3 or more points, staff should administer the PHQ-9): 0 Current/Former Smokers - Passive Exposure Questions Responses Current/Former Smoker - passive exposure (e.g., household member smoking)? No Substance Abuse, Mental Health, and Trauma History: Chemical Dependency, Mental Health & Trauma History Chemical Dependency: Patient denied history or current substance use. No concerns. Mental Health: Patient denied history or current mental health issues. No concerns. (11/26/23954) Risk to Self and Others: Risk to Self and Others Violence risk to self in past 6 months? : No Self Harm/Suicidal Ideation Plan: No Previous Self Harm/Suicidal Attempts: No Violence risk to others in past 6 months? : No Current Plans to Harm Another: No (11/26/23954) Impressions and Recommendations: Social Work Note: Social Work was consulted for 30-Day readmission, an IP-3 within a 1yr period, and a readmission risk score of 17%. Pt (Darius Russo) (1960) is a female, who was admitted to [facility] on 11/25/2023 for Ulcerative colitis (HCC) [K51.90] Bilateral ovarian cysts [N83.201, N83.202] Malnutrition (CMS/HCC) (HCC) [E46] Physical deconditioning [R53.81]. Current address is [address] [place] [id number]. Current phone number is [phone] (home) . SW met with patient and spouse, Jean Claude Russo ([phone]) at bedside. Throughout the assessment, the pt had maintained good eye contact and was forthcoming with information. Pt identified her strong support systems spouse, Jean Claude Russo ([phone]), 2 children twins, a daughter and son and her sister. Pt reported family will assist with her transportation needs. Pt did not identify any concerns with housing, financial strain, or food insecurity. Pt has the insurance [employer] and Medicare A&B. Patient nor spouse expressed any concerns. No further Social Work interventions identified. Readmission Risk: Predictive Model Details 17% (Mod Risk) Factor Value Calculated 11/29/2023 12:05 26% Number of active inpatient medication orders 36 Risk of Unplanned Readmission Model 10% Number of hospitalizations in last year 2 10% ECG/EKG order present in last 6 months 10% Latest calcium low (8.4 mg/dL) 7% Imaging order present in last 6 months 6% Latest hemoglobin low (8.0 g/dL) 6% Phosphorous result present 6% Number of ED visits in last six months 1 6% Age 63 5% Active anticoagulant inpatient medication order present 4% Current length of stay 3.733 days 2% Future appointment scheduled 1% Charlson Comorbidity Index 1 1% Active ulcer inpatient medication order present Social Work to work with following CM for discharge planning and social concerns as needed. YANIRA Guerrero, SALES MARKETING * Plan of Care - Ratna Campos RN - 11/29/2023 10:03 AM CDT Goals: Clinical Goals for the Shift: Monitor vitals and labs, promote care and safety Summary: * Consults, Subsequent - Marlene Pierre MD - 11/29/2023 8:01 AM CDT Pulmonary Subsequent Consult Subjective Chief complaint of weightloss. Interval History: - Bronch with BAL and TBBX of lingula completed 11/27 - Patient feels well, a bit of a cough after the bronch but non productive and no hemoptysis Scheduled Meds:ciprofloxacin, 500 mg, oral, BID - special [Held by Provider] enoxaparin, 40 mg, subcutaneous, Daily-2100 folic acid, 1 mg, oral, Daily insulin lispro, 0-4 Units, subcutaneous, Nightly insulin lispro, 0-5 Units, subcutaneous, TID with meals losartan, 25 mg, oral, Daily metroNIDAZOLE, 500 mg, oral, BID multivitamin 10 mL in sodium chloride 0.9% 500 mL IVPB, , intravenous, Daily pantoprazole DR, 40 mg, oral, Daily pyridoxine, 100 mg, oral, Daily thiamine, 100 mg, oral, Daily Continuous Infusions: PRN Meds:. acetaminophen benzonatate sodium chloride 0.9% dextrose OR dextrose glucagon loperamide ondansetron phenoL polyethylene glycol ramelteon sodium chloride 0.9% I/O last 2 completed shifts: In: 205 [IV Piggyback:205] Out: 50 [Other:50] Objective Vitals: Vitals: 11/29/23 0403 BP: 137/60 Pulse: 100 Resp: 20 Temp: 37 ??C (98.6 ??F) SpO2: 95% Physical Exam: General: Lying in bed, NAD HEENT: Clear oropharynx, no lesions, MMM Cardiovascular: RRR no murmurs Chest: crackles on left, decreased left basilar lung sounds, clear on right Abdomen: soft, distended Extremity: WWP, no edema Skin: no rashes Data: I have reviewed labs from last 24 hours. Pertinent findings include: - WBC 17.4, Hgb 8.0 - BAL macrophage predominate - RVP negative - BAL cultures pending, TBBX pathology pending Recent Results (from the past 24 hour(s)) POCT glucose Collection Time: 11/28/23 8:15 AM Result Value Ref Range Glucose, POC 162 70 - 199 mg/dL Adenovirus PCR qualitative Bronchoalveolar lavage Collection Time: 11/28/23 11:02 AM Specimen: Bronchoalveolar lavage Result Value Ref Range Adenovirus DNA Not Detected Not Detected Mycology (fungal) culture Bronchoalveolar lavage Bronchial Collection Time: 11/28/23 11:02 AM Specimen: Bronchial; Bronchoalveolar lavage Result Value Ref Range Report Preliminary Report: No growth of fungus to date Mycology (fungal) culture Bronchial washing Lobe, left upper Collection Time: 11/28/23 11:02 AM Specimen: Lobe, left upper; Bronchial washing Result Value Ref Range Report Preliminary Report: No growth of fungus to date Aerobic culture and gram stain Bronchial washing Lobe, left upper Collection Time: 11/28/23 11:02 AM Specimen: Lobe, left upper; Bronchial washing Result Value Ref Range Direct Specimen Exam Stain: Cytospin Gram stain shows: Abundant polymorphonuclear leukocytes seen. Abundant squamous epithelial cells seen indicating excessive oral pharyngeal contamination Other cellular material present. Rare mixed bacterial noah seen on Gram stain. Cytomegalovirus (CMV) PCR qualitative Bronchoalveolar lavage Lobe, left upper Collection Time: 11/28/23 11:02 AM Specimen: Lobe, left upper; Bronchoalveolar lavage Result Value Ref Range CMV DNA Not Detected Not Detected Pneumonia PCR with aerobic culture and Gram stain Bronchoalveolar lavage Lobe, left upper Collection Time: 11/28/23 11:02 AM Specimen: Lobe, left upper; Bronchoalveolar lavage Result Value Ref Range Direct Specimen Exam Molecular Analysis: No bacterial [...] mixed bacterial noah seen on Gram stain. Cell count w/rflx diff, body fluid Collection Time: 11/28/23 11:02 AM Result Value Ref Range Specimen type, fld Bronchial Body site, fld Bronch Lavage Color, fld Straw Clarity, fld Clear Clear Nucleated cells, fld 751 /cumm RBC, fld 0 /cumm Cell Differential, Body Fluid Collection Time: 11/28/23 11:02 AM Result Value Ref Range Total cells diffed 100 cells Neutrophils, fld 62 % Lymphs, fld 1 % Monocyte, fld 3 % Macrophages, fld 34 % Pneumonia PCR Bronchoalveolar lavage Lobe, left upper Collection Time: 11/28/23 11:02 AM Specimen: Lobe, left upper; Bronchoalveolar lavage Result Value Ref Range C. pneumoniae DNA Not Detected Not Detected Legionella pneumophila DNA Not Detected Not Detected M. pneumoniae DNA Not Detected Not Detected Adenovirus DNA Not Detected Not Detected Coronavirus (229E, OC43, HKU1, NL63) RNA Not Detected Not Detected Metapneumovirus RNA Not Detected Not Detected Rhinovirus/Enterovirus RNA Not Detected Not Detected Influenza A RNA Not Detected Not Detected Influenza B RNA Not Detected Not Detected Parainfluenza virus (1-4) RNA Not Detected Not Detected RSV RNA Not Detected Not Detected POCT glucose Collection Time: 11/28/23 11:50 AM Result Value Ref Range Glucose, POC 149 70 - 199 mg/dL Leukocytes, fecal Collection Time: 11/28/23 4:13 PM Result Value Ref Range WBC, fecal Few leukocytes (A) No leukocytes Calcium, ionized Collection Time: 11/28/23 4:13 PM Result Value Ref Range Calcium, Ionized 4.54 4.50 - 5.10 mg/dL POCT glucose Collection Time: 11/28/23 4:45 PM Result Value Ref Range Glucose, POC 127 70 - 199 mg/dL POCT glucose Collection Time: 11/28/23 8:35 PM Result Value Ref Range Glucose, POC 129 70 - 199 mg/dL Basic metabolic panel Collection Time: 11/29/23 12:46 AM Result Value Ref Range Sodium 135 135 - 145 mmol/L Potassium, pl 4.3 3.3 - 4.9 mmol/L Chloride 101 97 - 110 mmol/L CO2 28 22 - 32 mmol/L Anion gap 6 2 - 15 mmol/L BUN 15 6 - 25 mg/dL Creatinine 0.82 0.60 - 1.10 mg/dL Glucose 97 70 - 199 mg/dL Calcium 8.4 (L) 8.5 - 10.3 mg/dL CBC with auto differential Collection Time: 11/29/23 12:46 AM Result Value Ref Range WBC 17.2 (H) 3.8 - 9.9 K/cumm Hgb 8.0 (L) 11.9 - 15.5 g/dL Hct 27.2 (L) 35.6 - 45.5 % Plt 511 (H) 150 - 400 K/cumm MPV 8.4 (L) 9.1 - 12.3 fL RBC 3.18 (L) 3.90 - 5.20 M/cumm MCV 85.5 81.3 - 96.4 fL MCH 25.2 (L) 27.1 - 33.3 pg MCHC 29.4 (L) 32.3 - 35.7 g/dL RDW CV 18.0 (H) 11.1 - 14.9 % RDW SD 56.4 (H) 35.7 - 48.1 fL NRBC abs 0.00 0.00 - 0.01 K/cumm Magnesium Collection Time: 11/29/23 12:46 AM Result Value Ref Range Magnesium 2.0 1.4 - 2.5 mg/dL Phosphorus Collection Time: 11/29/23 12:46 AM Result Value Ref Range Phosphorus, pl 3.5 2.3 - 4.5 mg/dL Differential, auto Collection Time: 11/29/23 12:46 AM Result Value Ref Range Neutrophil abs 12.3 (H) 1.5 - 6.5 K/cumm Imm gran abs 0.1 0.0 - 0.1 K/cumm Lymphocyte abs 3.0 0.8 - 3.3 K/cumm Monocyte abs 1.5 (H) 0.2 - 0.8 K/cumm Eosinophil abs 0.3 0.0 - 0.5 K/cumm Basophil abs 0.1 0.0 - 0.1 K/cumm Neutrophil pct 71.4 % Imm gran pct 0.8 % Lymphocyte pct 17.3 % Monocyte pct 8.6 % Eosinophil pct 1.5 % Basophil pct 0.4 % eGFR Collection Time: 11/29/23 12:46 AM Result Value Ref Range eGFR 79 >=60 mL/min/1.73 m2 I have reviewed independently radiology images from last 24 hours: Pertinent findings include: CXR 11/27 post bronch: Right lung is clear. Multiple left-sided pulmonary nodules and small left pleural effusion, better characterized on recent CT. Additionally, there are post bronchoscopy and post biopsy changes. No right pleural effusion. No pneumothorax. Assessment/Plan Consolidation of left upper lobe of lung (CMS/HCC) (HCC) Assessment & Plan Darius Russo is a 63 yo female [...] infectious process given the distribution on imaging. Malignancy less likely given the appearance.Bronch with BAL and TBBX of lingula completed 11/27 with studies pending. - Follow up bronchoscopy cultures and pathology - Follow up pending fungal serologies and blood cultures Pulmonary will continue to follow Cosigned by Arnie Nunn Jr., MD at 11/29/2023 3:05 PM CDT Associated attestation - Arnie Nunn Jr., MD - 11/29/2023 3:05 PM CDT I have seen and examined the patient on 11/29/23. I agree with the findings and plan of care as documented in the resident's/fellow's note. * Consults, Subsequent - Boston Herrera MD - 11/29/2023 6:14 AM CDT Private GI Subsequent Consult Hospital Day: 5 Subjective - bronchoscopy 11/28/23 with infiltrates found. BAL performed with transbronchial biopsies performed. - abdominal pain improved - 1 bowel movements last night without blood - patient otherwise denies fevers or chills Objective Physical Exam: Vitals: 11/29/23 0403 BP: 137/60 Pulse: 100 Resp: 20 Temp: 37 ??C (98.6 ??F) SpO2: 95% Wt Readings from Last 3 Encounters: 11/26/23 58.7 kg (129 lb 8 oz) 11/25/23 58.2 kg (128 lb 3.2 oz) 11/13/23 63 kg (139 lb) General Appearance: Alert, cooperative, no distress. HEENT: Normocephalic, without obvious abnormality, atraumatic. No scleral icterus or conjunctival pallor. Lungs: Clear to auscultation bilaterally, respirations unlabored Cardiovascular: Regular rate and rhythm, no murmur. Abdomen: Soft, non-tender, bowel sounds active all four quadrants, no masses, no organomegaly, non-distended Extremities: No cyanosis or edema, no clubbing Skin: No rash Neurologic: Alert and oriented x 4. Psychiatric: Normal mood and affect Recent Labs Lab Units 11/29/23 0046 11/28/23 0110 11/26/23 2158 HEMOGLOBIN g/dL 8.0* 7.8* 8.4* Impression: 63 y.o. female PMH HTN, T2DM, s/p cholecystectomy, a large adnexal mass c/f malignancy, and suspected crohn???s colitis who presents for active colitis. 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 Recommendations: - pending BAL data to determine future infliximab - Abx per primary/ID We will continue to follow-up with you. Thank you for involving us in the care of this patient. If you have any questions, please call the [email or web address] pager during weekdays or the [employer] phone during after hours and weekends. Boston Herrera MD Gastroenterology Fellow Cosigned by Demian Pacheco MD at 11/29/2023 1:28 PM CDT Associated attestation - Demian Pacheco MD - 11/29/2023 1:28 PM CDT The resident/fellow saw and examined the patient, we discussed their findings, and I am in agreement with the plan based on the discussion with the resident/fellow. I did not personally examine the patient. * Plan of Care - Kerline Hartmann RN - 11/28/2023 11:50 PM CDT Problem: Discharge Planning Goal: Understanding discharge needs will improve Outcome: Progressing Problem: Fall Risk Goal: Ability to state ways to decrease the risk of falls will improve Outcome: Progressing Goal: Will remain free from falls Outcome: Progressing Goal: Will remain free from injury from falls Outcome: Progressing Problem: Skin Integrity Impairment Risk Goal: Mobility will improve Outcome: Progressing Goal: Understanding of ways to prevent future skin breakdown will improve Outcome: Progressing Goal: Nutritional status will improve Outcome: Progressing Goal: Risk for impaired skin integrity will decrease Outcome: Progressing Problem: Lack of Knowledge Goal: Ability to describe self care measures that may prevent or decrease complications related to Type 2 Diabetes will improve Outcome: Progressing Problem: Health Nutrition Goal: Nutritional intake and knowledge related to Diabetes will improve Outcome: Progressing Problem: Musculoskeletal Goal: Return mobility to safest level of function Outcome: Progressing Goal: Maintain proper alignment of affected body part Outcome: Progressing Goal: Return ADL status to a safe level of function Outcome: Progressing Goal: Ability to perform activities at highest level will improve Outcome: Progressing Goal: Mobility, ROM and muscle strength will improve Outcome: Progressing Problem: Gastrointestinal Goal: Minimal or absence of nausea and vomiting Outcome: Progressing Goal: Maintains or returns to baseline bowel function Outcome: Progressing Goal: Maintains adequate nutritional intake Outcome: Progressing Problem: Metabolic/Fluid and Electrolytes Goal: Electrolytes maintained within normal limits Outcome: Progressing Goals: Clinical Goals for the Shift: Monitor vitals and labs, promote care and safety Summary: * Plan of Care - Meka Ackerman RN - 11/28/2023 7:35 PM CDT Goals: Clinical Goals for the Shift: Monitor vitals and labs, promote care and safety Summary: * Plan of Care - Samia Marques MSW - 11/28/2023 3:00 PM CDT Social Work Note: SW consulted for readmission within 30 days. Social Work attempted to meet with patient to discuss financial, housing, transportation, social connections, food, and mental health needs .The patient is off the floor. Social Work unable to complete full assessment at this time. YANIRA Cardoso * Plan of Care - Dariana Cramer RN - 11/28/2023 2:33 PM CDT 11/28/23 8962 Discharge Planning Support System Spouse/Significant Other;Family members (Jean Claude/spouse [phone]) Anticipated discharge level of care Private residence Does the patient need discharge transport arranged? No (family to provide transportation) Post Acute Care Plan Home Care Services N/A OP Services N/A DME N/A Post Acute Care Facility N/A CM Progression of Care Update Per Medical Chart/Rounds/IDR: Patient is not medically ready for discharge ADD: 10-16 Discharge Barriers: No anticipated discharge barrier Education Needs Identified (plan): Pending Pulm for Bronch. Pending Infectious work-up. Pending AFBcx. Pending ID/GI c/s Pending PT/OT rec F/U Appointments: Pending Patient's Identified Problem/Goal Problem:?Ensure acute medical needs are met and that patient has a safe discharge plan. Goal:?Secure a discharge plan that patient/family are agreeable with?and ensure patient has continuum of care. Patient and/or family are agreeable with plan. workers compensation manager will continue to follow and assist with discharge planning as needed. If any further discharge needs arise, please contact the covering embedded case manager. Dariana Cramer RN,BSN,CM * Plan of Care - Meka Ackerman RN - 11/28/2023 8:00 AM CDT Problem: Discharge Planning Goal: Understanding discharge needs will improve 11/28/20231948 by Meka Ackerman RN Outcome: Progressing 11/28/20231934 by Meka Ackerman RN Outcome: Progressing Problem: Fall Risk Goal: Ability to state ways to decrease the risk of falls will improve 11/28/20231948 by Meka Ackerman RN Outcome: Progressing 11/28/20231934 by Meka Ackerman RN Outcome: Progressing Goal: Will remain free from falls 11/28/20231948 by Meka Ackerman RN Outcome: Progressing 11/28/20231934 by Meka Ackerman RN Outcome: Progressing Goal: Will remain free from injury from falls 11/28/20231948 by Meka Ackerman RN Outcome: Progressing 11/28/20231934 by Tyron, Meka E., RN Outcome: Progressing Problem: Skin Integrity Impairment Risk Goal: Mobility will improve Outcome: Progressing Goal: Understanding of ways to prevent future skin breakdown will improve Outcome: Progressing Goal: Nutritional status will improve Outcome: Progressing Goal: Risk for impaired skin integrity will decrease Outcome: Progressing Goals: Clinical Goals for the Shift: Monitor vitals and labs, promote care and safety Summary: * Medical Student - Amanda Westfall - 11/28/2023 7:18 AM CDT Medicine Daily Progress Note Chief complaint: failure to thrive, IBD with contained perf, adnexal mass Interval History: NAEON Hgb 7.8 < 8.4 Pain well controlled on acetaminophen 650 Na (134<127) and Cl (98<90) improved WBC 14.4<20.6 Bronch this morning with pulm. Objective Vital Signs: 24hr Min/Max: Temp Min: 36.7 ??C (98.1 ??F) Max: 36.9 ??C (98.4 ??F) Pulse Min: 96 Max: 108 BP Min: 115/59 Max: 133/64 Resp Min: 17 Max: 18 SpO2 Min: 96 % Max: 100 % Most Recent: Vitals: 11/27/231944 BP: 133/64 Pulse: 108 Resp: 18 Temp: 36.9 ??C (98.4 ??F) SpO2: 100% Intake/Output: No intake or output data in the 24 hours ending 11/28/23 0751 Physical Exam: General appearance: no acute distress, tearful HEENT: NCAT, MMM, anicteric Lungs: diffusely coarse, no w/r/r, non-labored, Heart: RRR, S1, S2 normal, no murmur, rub or gallop. JVP not elevated, no LE edema Abdomen: soft, somewhat bloated, LLQ tender to palp; bowel sounds normal Extremities: extremities normal, warm and well-perfused, equal pulses Skin: warm and dry Neurologic: No abnormal movements, non-focal exam Current Medications: Current Facility-Administered Medications: acetaminophen (TYLENOL) tablet 650 mg, 650 mg, oral, Q4H PRN, 650 mg at 11/28/23 0651 benzonatate (TESSALON) capsule 100 mg, 100 mg, oral, TID PRN, 100 mg at 11/28/23 0651 Carrier Fluids for Secondary Infusion - 0.9% Sodium Chloride, 30 mL, intravenous, PRN ciprofloxacin (CIPRO) tablet 500 mg, 500 mg, oral, BID - special, 500 mg at 11/28/23 0621 dextrose gel in packet 15 g, 15 g, oral, Q15 Min PRN OR dextrose (D10W) 10% bolus 250 mL, 250 mL, intravenous, Q15 Min PRN [Held by Provider] enoxaparin (LOVENOX) syringe 40 mg, 40 mg, subcutaneous, Daily-2100, 40 mg at 11/26/23 2140 folic acid (FOLVITE) tablet 1 mg, 1 mg, oral, Daily glucagon injection 1 mg, 1 mg, intramuscular, Q30 Min PRN insulin lispro (HumaLOG, ADMELOG) 100 unit/mL injection 0-4 Units, 0-4 Units, subcutaneous, Nightly, 1 Units at 11/26/23 2349 insulin lispro (HumaLOG, ADMELOG) 100 unit/mL injection 0-5 Units, 0-5 Units, subcutaneous, TID with meals, 1 Units at 11/27/23 1306 lidocaine (PF) (XYLOCAINE) 20 mg/mL (2 %) preservative free injection 4 mL, 4 mL, other, Once (RT) lidocaine (PF) (XYLOCAINE) 20 mg/mL (2 %) preservative free injection 4 mL, 4 mL, nebulization, Once (RT) losartan (COZAAR) tablet 25 mg, 25 mg, oral, Daily, 25 mg at 11/27/23 0857 metroNIDAZOLE (FLAGYL) tablet 500 mg, 500 mg, oral, BID, 500 mg at 11/27/23 210 multivitamin 10 mL in sodium chloride 0.9% 500 mL IVPB, , intravenous, Daily ondansetron (ZOFRAN) injection 4 mg, 4 mg, intravenous, Q4H PRN pantoprazole DR (PROTONIX) extended release tablet 40 mg, 40 mg, oral, Daily, 40 mg at 11/27/23 0857 phytonadione (VITAMIN K1) 2.5 mg in dextrose 5% 50 mL IVPB, 2.5 mg, intravenous, Once polyethylene glycol (MIRALAX) packet 17 g, 17 g, oral, Daily PRN pyridoxine (VITAMIN B6) tablet 100 mg, 100 mg, oral, Daily ramelteon (ROZEREM) tablet 8 mg, 8 mg, oral, Nightly PRN sodium chloride 0.9% flush 0.5-20 mL, 0.5-20 mL, intra-catheter, PRN thiamine (VITAMIN B-1) 500 mg in sodium chloride 0.9% 100 mL IVPB, 500 mg, intravenous, TID [START ON 11/29/2023] thiamine (VITAMIN B1) tablet 100 mg, 100 mg, oral, Daily Lab/Radiology/Diagnostic Review: Labs: Recent Labs Lab Units 11/28/2310911/26/23215711/25/23 225 HEMOGLOBIN g/dL 7.8* 8.4* 8.6* HEMATOCRIT % 25.5* 27.2* 28.1* WBC K/cumm 14.4* 20.6* 16.6* PLATELETS K/cumm 434* 459* 430* Recent Labs Lab Units 11/28/23 01111/26/23215711/25/23 2252 SODIUM mmol/L 134* 127* 130* POTASSIUM PLASMA mmol/L 4.1 4.3 4.6 CHLORIDE mmol/L 98 90* 95* CO2 mmol/L 28 26 26 ANIONGAP mmol/L 8 11 9 BUN SERUM mg/dL 15 19 18 CREATININE mg/dL 0.78 0.91 0.81 CALCIUM mg/dL 8.3* 8.6 8.7 MAGNESIUM mg/dL 2.0 1.8 2.0 Recent Labs Lab Units 11/28/2310911/25/23 2252 APTT sec 30 36 INR 1.62* 1.72* CRP 11/27: 173 ESR 11/27: 97 Fecal calprotectin: pending Fecal leukocytes: pending Urine lytes 11/27: pending ID labs - Blood cultures 11/26: NGTD - mycobacterial AFB bcx 11/26: NGTD - Aspergillus galactomannan antigen 11/27: in process - Blastomyces antibody blood 11/26: in process - Histoplasma antibody blood 11/26: in process - Histoplasma antigen urine: in process - Cryptococcal antigen blood 11/26: negative - Giardia antigen stoop 10/03: negative - Cryptosporidium antigen 10/03: negative - Stool O&P 10/04: negative - HIV 11/26: negative - C. diff stool 11/25: negative - RPP 11/24: negative - T Spot 10/26: negative - EBV 10/26: positive nuclear ab, positive IgG, negative IgM Assessment/Plan Ms. Russo is a 63 y.o. female with presents with failure to thrive, IBD with contained sigmoid microperf, adnexal mass, new cavitating pulmonary lesions for coordination of care. # Pulmonary nodules # Pleural effusion Patient with 1 week dry cough, no new fevers/chills, 65 lb weight loss over past year, hepatic and splenic abscesses. CT 11/25 with cavitating L upper lobe nodules, interlobular septal line thickening, regional lymphadenopathy, L pleural effusion and pleural thickening. TB spot negative in early October. Need to rule out mycobacterial disease before can proceed with anti-TNF tx for IBD. - interventional pulm c/s: consult general pulm - pulmonology c/s: - Bronchoscopy with BAL +/- biopsy 11/27 - NPO for bronchoscopy - hold anticoagulation for bronch - repeat CBC and coags this morning - vitamin K for elevated INR to 1.7 - f/u fungal serologies and blood cultures - ID consult: Pending labs: - beta D glucan (fungitell) 11/26: pending - Aspergillus galactomannan antigen 11/26: pending - Blastomyces antibody blood 11/26: in process - Histoplasma antibody blood 11/26: in process - Histoplasma antigen urine: in process - Blood cultures 11/26: NGTD - mycobacterial AFB bcx 11/26: NGTD - EKG to follow qtc - Continue tessalon pearls TID # IBD (UC vs CD) # Perforated Sigmoid Diverticulitis UC diagnosed 2022, GI now suspecting for CD. Symptoms well controlled until early this summer, withonset of 5+ daily nonbloody diarrhea, fecal incontinence, 65 lb weight loss, poor appetite, early satiety. Imaging perforated sigmoid diverticulitis, has been managed conservatively. Has been taking mesalamine suppositories at home. Saw Dr Perez with CRS during October admission and had outpatient visit with him scheduled later in November to discuss elective colectomy. Zosyn (10/02-10/03, 11/03-11/05), bactrim (10/04-11/03), flagyl (10/04- 11/03), augmentin (10/04-11/03), cipro (11/06-), flagyl (11/06-). ESR and CRP elevated. CT CAP 11/25 with worsening contained perf. LLQ tender on exam but not peritonitic. - Cipro 500 PO BID (11/06-), flagyl 500 PO BID (11/06-) - fecal calprotectin and fecal leukocytes pending - IBD treatment pending infectious work up. - Appreciate continued GI recs # Liver and spleen microabscesses Noted on recent imaging. Recent balaji in August, per op note GB was full of stones and difficult to grasp but low suspicion for retained gallstone as nothing seen on imaging and microabscesses are intrahepatic. During October admission IR consulted, abscesses too small to drain. Improved on 11/25 CT. - continue cipro 500 PO BID (11/06-), flagyl 500 PO BID (11/06-) # hyponatremia # hypochloremia # hypocalcemia Na 130<127, Cl 98<90, Ca 8.3<8.6 - urine lytes pending - ordered iCal - ctm BMP + mag, phos # Adnexal mass Large multiseptated O RADS 3 lesion, likely arising from the right ovary found incidentally on imaging in August. Following with [employer] registrar onc, Dr. Rhodes. 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 Meets ASPEN criteria for severe chronic malnutrition. - nutrition consult - Thiamine 500 IV x 3 loading then 100 mg daily - daily folic acid - daily multivitamin - daily B8 100 mg - patient may require supplemental enteral nutrition while she works up to consuming 50-60% of energy needs. # Hemochromatosis Iron deposition in liver noted incidentally on recent imaging. Elevated ferritin to 1868 iso acute inflammatory process. Has had a few iron infusions (last infusion yesterday), hx of 3 lifetime bloodtransfusions. No clear mechanism for iron overload/secondary hemochromatosis at this point. - consider HFE # T2DM A1C in October was 5.7. Managed on metformin 500 q24. - SSI # HTN Takes losartan 25 at home Code - Fall Diet - Carb consistent DVT prophylaxis - subq lovenox, SCDs. Note that patient is at increased risk of VTE 2/2 IBD. Dispo - Cosigned by Suhail Alfredo MD at 11/28/2023 10:09 PM CDT * Assessment & Plan Note - Marlene Pierre MD - 11/27/2023 5:05 PM CDT Associated Problem(s): Consolidation of left upper lobe of lung (CMS/HCC) (HCC) Darius Russo is a 63 yo female [...] to check for improvement in [place] opacities * Plan of Care - Samia Marques MSW - 11/27/2023 12:10 PM CDT Social Work Note: SW consulted for readmission within 30 days. Social Work attempted to meet with patient to discuss financial, housing, transportation, social connections, food, and mental health needs .The patient is with medical team. Social Work unable to complete full assessment at this time. YANIRA Cardoso * Medical Student - Khoi Amanda - 11/27/2023 8:21 AM CDT Medicine Daily Progress Note Chief complaint: failure to thrive, IBD with contained microperf Interval History: Pain well controlled overnight. Appetite baseline, some nausea at the thought of eating certain foods but no vomiting No chills, abd pain baseline, cough improved with tessalon Left sided chest pain with coughing (midaxillary line at the level of lower ribs) Patient tearful during discussion of pulmonary findings on CT Objective Vital Signs: 24hr Min/Max: Temp Min: 37 ??C (98.6 ??F) Max: 37.1 ??C (98.8 ??F) Pulse Min: 86 Max: 99 BP Min: 105/78 Max: 120/56 Resp Min: 18 Max: 18 SpO2 Min: 95 % Max: 97 % Most Recent: Vitals: 11/27/23 0410 BP: 110/52 Pulse: 86 Resp: 18 Temp: 37.1 ??C (98.8 ??F) SpO2: 95% Intake/Output: 3x bowel movement, well formed, no blood Physical Exam: General appearance: no acute distress, tearful HEENT: NCAT, MMM, anicteric Lungs: Decreased breath sounds L side, no w/r/r, non-labored Heart: RRR, S1, S2 normal, no murmur, rub or gallop. JVP not elevated, no LE edema Abdomen: soft, NT/ND; bowel sounds normal Extremities: extremities normal, warm and well-perfused, equal pulses Skin: warm and dry Neurologic: No abnormal movements, non-focal exam Current Medications: Current Facility-Administered Medications: acetaminophen (TYLENOL) tablet 650 mg, 650 mg, oral, Q4H PRN, 650 mg at 11/27/23 0318 benzonatate (TESSALON) capsule 100 mg, 100 mg, oral, TID PRN, 100 mg at 11/27/23 0013 ciprofloxacin (CIPRO) tablet 500 mg, 500 mg, oral, BID - special, 500 mg at 11/27/23 0525 dextrose gel in packet 15 g, 15 g, oral, Q15 Min PRN OR dextrose (D10W) 10% bolus 250 mL, 250 mL, intravenous, Q15 Min PRN enoxaparin (LOVENOX) syringe 40 mg, 40 mg, subcutaneous, Daily-2100, 40 mg at 11/26/23 2140 glucagon injection 1 mg, 1 mg, intramuscular, Q30 Min PRN insulin lispro (HumaLOG, ADMELOG) 100 unit/mL injection 0-4 Units, 0-4 Units, subcutaneous, Nightly, 1 Units at 11/26/23 2349 insulin lispro (HumaLOG, ADMELOG) 100 unit/mL injection 0-5 Units, 0-5 Units, subcutaneous, TID with meals, 1 Units at 11/26/23 1247 losartan (COZAAR) tablet 25 mg, 25 mg, oral, Daily, 25 mg at 11/26/23 0910 metroNIDAZOLE (FLAGYL) tablet 500 mg, 500 mg, oral, BID, 500 mg at 11/26/230 ondansetron (ZOFRAN) injection 4 mg, 4 mg, intravenous, Q4H PRN pantoprazole DR (PROTONIX) extended release tablet 40 mg, 40 mg, oral, Daily, 40 mg at 11/26/23 0910 polyethylene glycol (MIRALAX) packet 17 g, 17 g, oral, Daily PRN ramelteon (ROZEREM) tablet 8 mg, 8 mg, oral, Nightly PRN Lab/Radiology/Diagnostic Review: Labs: Recent Labs Lab Units 11/26/23215711/25/23 2252 HEMOGLOBIN g/dL 8.4* 8.6* HEMATOCRIT % 27.2* 28.1* WBC K/cumm 20.6* 16.6* PLATELETS K/cumm 459* 430* Recent Labs Lab Units 11/26/23215711/25/23 2252 SODIUM mmol/L 127* 130* POTASSIUM PLASMA mmol/L 4.3 4.6 CHLORIDE mmol/L 90* 95* CO2 mmol/L 26 26 ANIONGAP mmol/L 11 9 BUN SERUM mg/dL 19 18 CREATININE mg/dL 0.91 0.81 CALCIUM mg/dL 8.6 8.7 MAGNESIUM mg/dL 1.8 2.0 Recent Labs Lab Units 11/25/23 2252 APTT sec 36 INR 1.72* Cultures: Lab Results Component Value Date MICROBIOLOGY Preliminary Report: Culture results pending. 11/26/2023 MICROBIOLOGY Final Report: No growth 11/04/2023 MICROBIOLOGY Final Report: No growth 11/04/2023 MICROBIOLOGY 10/03/2023 Final Report: No growth of enteric bacterial pathogens MICROBIOLOGY Final Report: Negative 10/03/2023 HIV negative, AFB pending, Bcx pending Imaging IMPRESSION: 1. Development of left upper lobe predominant peribronchovascular nodules, some of which are cavitating, and associated smooth interlobular septal line thickening, supraclavicular, mediastinal, and hilar supraclavicular lymphadenopathy, and a small left pleural effusion with pleural thickening. Give n that these findings are new since 10/02/2023, they are favored to represent an atypical infectionsuch as a fungal infection. Vasculitis is an additional differential consideration. Metastatic disease could have this appearance, but this is unlikely given that these findings are new since 10/02/2023. Consider tissue sampling of either the left supraclavicular lymph node or with bronchoscopy. 2. Continued worsening of contained perforation of the proximal sigmoid colon. Given the appearanceon 09/05/2023, this is favored to be perforation from an underlying colitis rather than diverticulitis. 3. Improving hepatic and splenic abscesses. Assessment/Plan Ms. Russo is a 63 y.o. female with IBD, known adnexal mass who presents with contained sigmoid colon microperforation, new pulmonary lesions, and failure to thrive. # IBD # Perforated Sigmoid Diverticulitis UC diagnosed 2022, GI now concerned for CD. Symptoms well controlled until early this summer, with onset of 5+ daily nonbloody diarrhea, fecal incontinence, 65 lb weight loss, poor appetite, early satiety. Imaging perforated sigmoid diverticulitis, has been managed conservatively. Zosyn 10/02-10/03, bactrim 10/04- LLQ tender on exam but not peritonitic. Has been taking mesalamine suppositories at home. Saw Dr Perez with CRS during October admission and had outpatient visit with him scheduled later in November to discuss elective colectomy. CT yesterday with read favoring IBD > diverticulitisas etiology of perforation, which favors a diagnosis of CD>UC. - GI recs re starting immunomodulation iso active infection - ID recs re abx, starting immunomodulation iso active infection - ESR, CRP, fecal calpro - blood cultures pending # Pulmonary nodules # Pleural effusion Patient with 1 week dry cough, no new fevers/chills, 65 lb weight loss over past year, hepatic and splenic abscesses. CT yesterday with cavitating L upper lobe nodules, interlobular septal line thickening, regional lymphadenopathy, L pleural effusion and pleural thickening. TB spot negative in early October. Rule out TB, other mycobacteria, histo, blasto, crypto given clinical [place] and consideration of immunomodulatory therapy for IBD. - consult interventional pulmonology for bronchoscopy and biopsy per ID - NPO for possible bronchoscopy - blood cultures, AFB blood cultures - Continue tessalon pearls TID # Liver and spleen microabscesses Noted on recent imaging. Recent balaji in August, per op note GB was full of stones and difficult to grasp but low suspicion for retained gallstone as nothing seen on imaging and microabscesses are intrahepatic. During October admission IR consulted, abscesses too small to drain. CT yesterday demonstrates interval improvement in abscesses - ID recs - cont cipro/flagyl # Adnexal mass Large multiseptated O RADS 3 lesion, likely arising from the right ovary found incidentally on imaging in August. Following with [employer] school registrar onc, Dr. Rhodes. 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 - if surgical intervention for IBD is indicated will c/s secondary school registrar onc # Protein-calorie malnutrition 65 lb weight loss over past year, 20 since September. Poor po intake with early satiety. Na today 127<130, Cl 90<95 iso poor po but reportedly tolerates fluids well. Bicarb wnl and Cr baseline. - nutrition consult, GI considering TPN - urine lytes # Cough Cough for past week, RVP negative in ED. Diffusely coarse breath sounds. Afebrile. Reportedly had CT chest yesterday to evaluate this but unable to see images or read. - CT CAP # Hemochromatosis Iron deposition in liver noted incidentally on recent imaging. Elevated ferritin to 1868 iso acute inflammatory process. Has had a few iron infusions (last infusion yesterday), hx of 3 lifetime bloodtransfusions. No clear mechanism for iron overload/secondary hemochromatosis at this point. Reportsno family history of liver or heart problems. - HFE gene # T2DM A1C in October was 5.7. Home metformin 500 q24. # HTN Takes losartan 25 at home Code - Fall Diet - Carb consistent DVT prophylaxis - subq lovenox, SCDs. Note that patient is at increased risk of VTE 2/2 IBD. Dispo - Cosigned by Suhail Alfredo MD at 11/28/2023 8:27 PM CDT * Consults, Subsequent - Cara Guy NP - 11/27/2023 5:45 AM CDT Infectious Disease Subsequent Consult Note Infectious Disease Team: General 4 Contact Information: Please see [facility] Treatment Team listing for up-to-date contact information. Subjective Chief complaint of Spleen and liver abscesses, contained perforation, lung nodules with cavitation Interval History: -Multiple results in progress -Patient reports bronch today -No new symptoms Objective Anti-infectives (From admission, onward) Start Dose/Rate Route Frequency Ordered Stop 11/26/23 09 metroNIDAZOLE (FLAGYL) tablet 500 mg 500 mg oral 2 times daily 11/25/23211911/26/23 06 ciprofloxacin (CIPRO) tablet 500 mg 500 mg oral 2 times daily (for quinolones,etc) 11/25/232119 Vitals: 24hr Min/Max: Temp Min: 36.7 ??C (98.1 ??F) Max: 37.1 ??C (98.8 ??F) Pulse Min: 86 Max: 99 BP Min: 105/78 Max: 120/56 Resp Min: 17 Max: 18 SpO2 Min: 95 % Max: 97 % Most Recent : Vitals: 11/27/23914 BP: 115/59 Pulse: 96 Resp: 17 Temp: 36.7 ??C (98.1 ??F) SpO2: 96% No intake/output data recorded. Active LDAs: Peripheral IV 11/25/23 22 G Anterior;Left Forearm (Active) Number of days: 2 Physical Exam: Physical Exam Constitutional: General: She is not in acute distress. Comments: Chronically ill appearing HENT: Mouth/Throat: Mouth: Mucous membranes are moist. Cardiovascular: Rate and Rhythm: Normal rate and regular rhythm. Pulmonary: Effort: Pulmonary effort is normal. No respiratory distress. Abdominal: General: Bowel sounds are normal. Palpations: Abdomen is soft. Tenderness: There is no abdominal tenderness. Musculoskeletal: General: Normal range of motion. Skin: General: Skin is warm and dry. Findings: No rash. Neurological: General: No focal deficit present. Mental Status: She is alert and oriented to person, place, and time. Mental status is at baseline. Psychiatric: Mood and Affect: Mood normal. Behavior: Behavior normal. Thought Content: Thought content normal. Judgment: Judgment normal. Lab/Radiology/Diagnostic Review: Lab Results Component Value Date MICROBIOLOGY Preliminary Report: Culture results pending. 11/26/2023 MICROBIOLOGY Final Report: No growth 11/04/2023 MICROBIOLOGY Final Report: No growth 11/04/2023 MICROBIOLOGY 10/03/2023 Final Report: No growth of enteric bacterial pathogens MICROBIOLOGY Final Report: Negative 10/03/2023 Radiology results were reviewed. CT Chest Abdomen Pelvis W Contrast Result Date: 11/27/2023 1. Development of left upper lobe predominant peribronchovascular nodules, some of which are cavitating, and associated smooth interlobular septal line thickening, supraclavicular, mediastinal, and hilar supraclavicular lymphadenopathy, and a small left pleural effusion with pleural thickening. Give n that these findings are new since 10/02/2023, they are favored to represent an atypical infectionsuch as a fungal infection. Vasculitis is an additional differential consideration. Metastatic disease could have this appearance, but this is unlikely given that these findings are new since 10/02/2023. Consider tissue sampling of either the left supraclavicular lymph node or with bronchoscopy. 2.Continued worsening of contained perforation of the proximal sigmoid colon. Given the appearance on09/05/2023, this is favored to be perforation from an underlying colitis rather than diverticulitis. 3. Improving hepatic and splenic abscesses. Dictated by: Jyotsna Reid M.D. The radiology attending physician has personally reviewed this study, and had reviewed and/or edited this written report and agrees with it. Electronically signed by: Vamshi Alarcon M.D. CT Chest Abdomen Pelvis W Contrast Result Date: 11/27/2023 1. Development of left upper lobe predominant peribronchovascular nodules, some of which are cavitating, and associated smooth interlobular septal line thickening, supraclavicular, mediastinal, and hilar supraclavicular lymphadenopathy, and a small left pleural effusion with pleural thickening. Give n that these findings are new since 10/02/2023, they are favored to represent an atypical infectionsuch as a fungal infection. Vasculitis is an additional differential consideration. Metastatic disease could have this appearance, but this is unlikely given that these findings are new since 10/02/2023. Consider tissue sampling of either the left supraclavicular lymph node or with bronchoscopy. 2.Continued worsening of contained perforation of the proximal sigmoid colon. Given the appearance on09/05/2023, this is favored to be perforation from an underlying colitis rather than diverticulitis. 3. Improving hepatic and splenic abscesses. Dictated by: Jyotsna Reid M.D. The radiology attending physician has personally reviewed this study, and had reviewed and/or edited this written report and agrees with it. Electronically signed by: Vamshi Alarcon M.D. Assessment/Plan Pulmonary nodule Assessment & Plan Patient is a 63 y.o. female with a history of hypertension, type 2 diabetes, and inflammatory boweldisease who is [facility] for progressive weight loss and nausea in the setting of multiple admissions for diverticulitis complicated by contained sigmoid perforation, scattered liver and spleen abscesses and adnexal mass. She was admitted to [facility] on 11/24 for further workup and ID [...] Improving hepatic and splenic abscesses. 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 She denies international travel or living with someone who has lived overseas. Reports her son hasleón deployed before but that he does not live with her. [place] walks but denies frequent hiking through wooded areas, gardening, hunting, or interactions with livestock. She denies any pets. Reports there is a stray cat that comes around but she has never been bitten or scratched. Reviewed ID involvement in care and specifically discussed infectious workup and touched on AFB andfungal infections and treatments. Patient reports plan is for bronch today. Director [employer] hold off on AFB sputums for TB r/o and TB PCR at this time as patient does not have the typical risk factors. Reasonable to wait for current results at this time. Recommendations: -Continue ciprofloxacin and metronidazole as ordered -Agree with bronch. Please send fungal, AFB and bacterial cultures -Please obtain an EKG for Qtc monitoring - Obtain giyo-K-khwcuz and galactomannan -Will follow up on results -Thank you for allowing us to participate in the care of this patient. For questions or concerns, please do not hesitate to reach out. Patient seen and plan formulated with Dr. Iverson. Cara Guy, Team 4 Infectious Diseases INDUSTRIAL SECURITY ANALYST Please contact the Team 4 ID INDUSTRIAL SECURITY ANALYST M-F, 7-3; or the Attending at the phone numbers in care team with any questions or concerns. After hours, please contact the ID fellow consular officer. Cosigned by Laury Iverson MD at 11/27/2023 2:23 PM CDT Associated attestation - Laury Iverson MD - 11/27/2023 2:23 PM CDT I have seen and examined the patient on 11/27/23 in conjunction with the non- physician provider. History: Patient underwent bronchoscopy, ongoing well appetite, this legs ensure drinks Physical Exam: Crackles on left side lung randall Lab/Radiology/Diagnostics Review: T spot from 10/26 negative. HIV nonreactive C diff GDH/toxin negative CT chest notable for new left upper lobe. Bronchovascular nodules some with cavitation associated with smooth interlobular septae. Supraclavicular, mediastinal, and hilar supraclavicular lymphadenopathy noted. Perforation noted to be worsening. Hepatic and splenic abscesses improved Assessment/Plan: This is a 53-year-old woman with a history of inflammatory bowel disease which has been most recently complicated by cholecystitis status post cholecystectomy and sigmoid colon microperforation, found to also have splenic and hepatic microabscesses all in the context significant weight loss. This admission, CT scan identified a new cavitating nodules predominantly in the upper left lobe. Notably these findings are new from 10/01. The differential is currently wide, however a unifying diagnosis at least for the microabscesses and pulmonary nodules includes fungal or mycobacterial infections. Notably, the patient has no traditional risk factors for tuberculosis. We currently await results from the bronchoscopy as well as multiple serologic test. Would also obtain beta D glucan and galactomannan. Reasonable to continue ciprofloxacin and metronidazole for colonic perforation--particularly in the context of worsening symptoms and imaging. Today, I am treating the patient for hepatic and splenic microabscesses, colonic microperforation, cavitating pulmonary nodules which can cause disseminated infection, sepsis, shock, in the short-term future in the absence of appropriate treatment, as described in the note. Discussed the risk/benefit of bronchoscopy procedure/surgery with the patient as described in the note. * Plan of Care - Isabell Mackay - 11/26/2023 1:45 PM CDT Goals: Safety Summary: Meds per MAR. PRN tessalon for cough. Ambulates to bathroom independently. at bedside occasionally throughout shift. CT abdomen/pelvis needs to be completed. Care clustered, call light within reach, safety maintained. Problem: Discharge Planning Goal: Understanding discharge needs will improve Outcome: Progressing Problem: Fall Risk Goal: Ability to state ways to decrease the risk of falls will improve Outcome: Progressing Goal: Will remain free from falls Outcome: Progressing Goal: Will remain free from injury from falls Outcome: Progressing Problem: Lack of Knowledge Goal: Ability to describe self care measures that may prevent or decrease complications related to Type 2 Diabetes will improve Outcome: Progressing Problem: Health Nutrition Goal: Nutritional intake and knowledge related to Diabetes will improve Outcome: Progressing Problem: Neurosensory Goal: Achieves maximal functionality and self care Outcome: Progressing Problem: Musculoskeletal Goal: Return mobility to safest level of function Outcome: Progressing Goal: Maintain proper alignment of affected body part Outcome: Progressing Goal: Return ADL status to a safe level of function Outcome: Progressing Goal: Ability to perform activities at highest level will improve Outcome: Progressing Goal: Mobility, ROM and muscle strength will improve Outcome: Progressing Problem: Gastrointestinal Goal: Minimal or absence of nausea and vomiting Outcome: Progressing Goal: Maintains or returns to baseline bowel function Outcome: Progressing Goal: Maintains adequate nutritional intake Outcome: Progressing Problem: Metabolic/Fluid and Electrolytes Goal: Electrolytes maintained within normal limits Outcome: Progressing Goal: Glucose maintained within prescribed range Outcome: Progressing * Initial Assessments - Dariana Cramer RN - 11/26/2023 10:16 AM CDT CM Initial Assessment Interview Note Information Obtained From: Patient (11/26/23954) Admission Source: Non Health Care Facility Impression: Patient is a 63 yo with a history of HTN, T2DM, S/P Cholecystectomy presented with adnexal mass and colitis. Plan Includes: Anticipated discharge home with family for home support and no home care needs Primary Source of Transportation: Does the patient need discharge transport arranged?: No (Jean Claude Russo/spouse [phone]) (11/26/23 0957) Health Insurance Coverage: [facility]. Medicare Prescription Coverage: yes Pharmacy: [facility] [place], [place] - [address] [address] [address] [facility] [address] Primary Care Provider: Kaushal Heath MD Prior to Admission: Functional Status: Minimal assist with ADLs Primary Caregiver: Self Support System: Spouse/Significant Other, Family members (Jean Claude Russo/spouse [phone]) Home Care Services: No Outpatient Services: No Durable Medical Equipment: None Living Arrangements: Spouse/significant other (Jean Claude Russo/spouse [phone]) Type of Residence: Private residence Steps in home?: Yes, Outside of home Number of steps inside: 0 steps Number of steps outside: 6 steps Medication management: Independent (11/25/231916) Potential discharge needs include: Home Health: None (11/26/23954) OP Services:N/a Dialysis: N/a Behavioral Health Services: Behavioral Health Services: No (11/26/23956) Anticipated Level of Care: Anticipated discharge level of care: Private residence Pt/Family agrees with Anticipated Level of Care: Yes (11/26/23954) Patient expects to be Discharged to: Private residence, (11/26/23954) Additional Information: CM confirmed with patient PCP, pharmacy, phone and address. Explained role and purpose of CM and discussed home health options. If home health is indicated at the time of discharge, the patient will be provided with a list of home health agencies. Patient demonstrates no agency preference at this time Patient's Identified Problem/Goal Problem: Ensure acute medical needs are met and that patient has a safe discharge plan. Goal: Secure a discharge plan that patient/family are agreeable with and ensure patient has continuum of care. Case management will follow for discharge planning and send referrals as needed. Goals include: To assure continuity of care, To maximize coping skills, To assure patient is in a safe environment and To assure access to community resources. Plan includes: 1. Collaboration with Patient, Provider, Direct Care Nurse, Bill Distributor, and other members of theHealth Care Team to assure needed interventions completed. 2. Return patient to optimal level of self-care post discharge. 3. Production Hardener will follow for Discharge Planning - interventions as needed 4. Anticipated level of care at discharge 5. Planned Discharge Disposition Dariana Cramer RN,BSN,CM For emergency needs from 4:31p.m. - 7:59a.m., please call the dinker [phone]. For weekend/holiday needs from 8:00a.m. - 4:30p.m., please call the Weekend Production Hardener . * Plan of Care - Samia Marques MSW - 11/26/2023 10:01 AM CDT Social Work Note: SW consulted for readmission within 30 days. Social Work attempted to meet with patient to discuss financial, housing, transportation, social connections, food, and mental health needs .The patient is off the floor. Social Work unable to complete full assessment at this time. YANIRA Cardoso * Medical Student - Amanda Westfall - 11/26/2023 8:54 AM CDT Medicine Daily Progress Note History and Physical Medicine Firm Subjective HPI: Mrs. Russo is a 63 yo female with [facility] IBD, ovarian mass, HTN, T2DM, and perforated diverticulitis c/b liver and spleen microabscesses presenting with failure to thrive. Mrs. Russo was diagnosed with UC in 2022 after she presented with a perianal abscess, and was started on mesalamine suppositories. Since her UC diagnosis she has had persistent diarrhea 5+ times/day with early satiety, abdominal fullness, and weight loss. In August 2023 she presented to an OSH ED with abdominal pain, fever, and chills. Imaging revealed acute cholecystitis, a large multiloculated adnexal cyst, and diverticulitis. Had a lap balaji with improvement in symptoms. She was readmitted at OSH 09/24-09/29 for diarrhea and weakness. Imaging revealed sigmoid colitis, diverticulitis with contained microperforation (no intraperitoneal free air), and new moderate volume ascites and was treated conservatively with a course of bactrim. At this time she also had an asymptomatic ESBL UTI whichwas covered by the bactrim. She had an outpatient appointment with Dr Rhodes (secondary school registrar onc) on 10/01 and was directly admitted 10/01-10/03 for continued poor PO intake, abdominal pain, weight loss, and rectal discharge with failure toimprove on antibiotics. CRS and GI consults suggested conservative management and better outpatientoptimization of IBD symptoms. She was discharged on a course of augmentin, flagyl, and bactrim. She was readmitted 11/03-11/05 after being found down with aphasia at home by her . Workup forstroke was negative, imaging found new hepatic and splenic abscesses. Etiology of her altered mental status thought to be hyponatremia iso poor PO intake, anemia iso malabsorption, and infection. Shewas treated inpatient with IV Zosyn and discharged to continue a course of cipro/flagyl. Colonoscopy on 11/12 found mild inflammation in rectum (biopsy with normal mucosal architecture) andsevere inflammation in sigmoid colon (biopsy with crypt distortion and cryptitis c/w mildly active chronic colitis) Saw Dr. Jung in clinic yesterday and was directly admitted for coordination of care and more aggressive management of IBD/diverticulitis symptoms, which have failed to improve, and continued failure to thrive (65 lb weight loss over the past year, with 20 lb weight loss since September). Of note, patient also reports cough for the past week and states she had a CT chest yesterday, as ordered by her PCP. We don't have access to these results currently. Patient denies new recent fevers/chills. Past Medical History Past Medical History: Diagnosis Date Adrenal mass (HCC) Diabetes mellitus (HCC) Diverticulitis Hypertension Past Surgical History Past Surgical History: Procedure Laterality Date CHOLECYSTECTOMY 08/2023 COLONOSCOPY 2021 TUBAL LIGATION Prescriptions Prior to Admission Medications Prior to Admission Medication Sig Dispense Refill Last Dose acetaminophen 500 mg capsule Take 2 capsules (1,000 mg total) by mouth every 6 (six) hours as needed (pain) 30 tablet 0 11/24/2023 ciprofloxacin (CIPRO) 500 mg tablet Take 1 tablet (500 mg total) by mouth 2 (two) times a day 11/25/2023 cyanocobalamin (Vitamin B-12) 2,500 mcg tablet, sublingual Take 1 tablet (2,500 mcg total) by mouthdaily 11/25/2023 loperamide (IMODIUM) 2 mg capsule Take 1 capsule (2 mg total) by mouth 4 (four) times a day as needed for diarrhea 11/25/2023 losartan (COZAAR) 25 mg tablet Take 1 tablet (25 mg total) by mouth daily 11/25/2023 magnesium oxide 500 mg capsule Take by mouth daily 11/25/2023 mesalamine (CANASA) 1,000 mg suppository Insert 1 suppository (1,000 mg total) into the rectum nightly 30 suppository 0 Past Week metroNIDAZOLE (FLAGYL) 500 mg tablet Take 1 tablet (500 mg total) by mouth 2 (two) times a day 11/25/[address] (PROTONIX) 40 mg EC tablet Take 1 tablet (40 mg total) by mouth daily 11/25/2023 potassium chloride ER 10 mEq CR tablet Take 1 tablet/capsule (10 mEq total) by mouth daily 11/25/2023 ferrous sulfate 325 mg (65 mg of elemental iron) tablet Take 1 tablet (325 mg total) by mouth dailywith breakfast 30 tablet 11 Unknown UNABLE TO FIND IRON INFUSIONS PRN Allergies Allergies Allergen Reactions Azithromycin Rash Social History Social History Tobacco Use Smoking status: Never Smokeless tobacco: Never Substance and Sexual Activity Drug use: Never Sexual activity: Defer Alcohol Use: Not At Risk (11/13/2023) AUDIT-C Frequency of Alcohol Consumption: Never Average Number of Drinks: Patient does not drink Frequency of Binge Drinking: Never Family History Family History Problem Relation Age of Onset Diabetes Mother Emphysema Father No family history of cancer. Review of Systems Review of systems as per HPI and, otherwise all other systems are negative. Objective Vitals: 24hr Min/Max: Temp Min: 37 ??C (98.6 ??F) Max: 37.1 ??C (98.8 ??F) Pulse Min: 86 Max: 99 BP Min: 105/78 Max: 120/56 Resp Min: 18 Max: 18 SpO2 Min: 95 % Max: 97 % Most Recent Vitals: Vitals: 11/27/23 0410 BP: 110/52 Pulse: 86 Resp: 18 Temp: 37.1 ??C (98.8 ??F) SpO2: 95% No intake or output data in the 24 hours ending 11/27/23 0818 Physical Exam: General: Well-appearing, in no acute distress. HEENT: Normocephalic, atraumatic. Extraocular movements intact. Conjunctiva non- injected, no sleralicterus. Oropharynx is pink and moist without obvious lesions. Thyroid non-palpable. Cardiovascular: Regular rate and rhythm. Normal S1, S2. No murmurs, rubs, or gallops. Radial pulses2+ and equal bilaterally. Pulmonary: Coughs with deep expiration. Lung sounds diffusely coarse. Breath sounds equal. Normal chest wall expansion. Abdominal: Soft, somewhat bloated, LLQ tender to palpation, but patient reports this may be becauseshe needs to use the restroom. No palpable masses or organomegaly. No rebound or guarding. Bowel sounds normoactive in all 4 quadrants. Musculoskeletal: Actively moves all extremities. Normal range of motion. No obvious deformity. Extremities: No cyanosis, pallor, or clubbing noted. No peripheral edema. Neurological: Alert and oriented. Integumentary: No visible skin rashes or other lesions. Psychiatric: Pleasant, cooperative. Normal mood, appropriate affect. Lab/Radiology/Diagnostic Review: Recent Results Recent Results (from the past 24 hour(s)) POCT glucose Collection Time: 11/26/23 9:06 AM Result Value Ref Range Glucose, POC 145 70 - 199 mg/dL POCT glucose Collection Time: 11/26/23 11:49 AM Result Value Ref Range Glucose, POC 198 70 - 199 mg/dL POCT glucose Collection Time: 11/26/23 5:27 PM Result Value Ref Range Glucose, POC 141 70 - 199 mg/dL Basic metabolic panel Collection Time: 11/26/23 9:58 PM Result Value Ref Range Sodium 127 (L) 135 - 145 mmol/L Potassium, pl 4.3 3.3 - 4.9 mmol/L Chloride 90 (L) 97 - 110 mmol/L CO2 26 22 - 32 mmol/L Anion gap 11 2 - 15 mmol/L BUN 19 6 - 25 mg/dL Creatinine 0.91 0.60 - 1.10 mg/dL Glucose 186 70 - 199 mg/dL Calcium 8.6 8.5 - 10.3 mg/dL CBC with auto differential Collection Time: 11/26/23 9:58 PM Result Value Ref Range WBC 20.6 (H) 3.8 - 9.9 K/cumm Hgb 8.4 (L) 11.9 - 15.5 g/dL Hct 27.2 (L) 35.6 - 45.5 % Plt 459 (H) 150 - 400 K/cumm MPV 9.2 9.1 - 12.3 fL RBC 3.31 (L) 3.90 - 5.20 M/cumm MCV 82.2 81.3 - 96.4 fL MCH 25.4 (L) 27.1 - 33.3 pg MCHC 30.9 (L) 32.3 - 35.7 g/dL RDW CV 17.9 (H) 11.1 - 14.9 % RDW SD 54.5 (H) 35.7 - 48.1 fL NRBC abs 0.00 0.00 - 0.01 K/cumm Magnesium Collection Time: 11/26/23 9:58 PM Result Value Ref Range Magnesium 1.8 1.4 - 2.5 mg/dL Phosphorus Collection Time: 11/26/23 9:58 PM Result Value Ref Range Phosphorus, pl 3.5 2.3 - 4.5 mg/dL Differential, auto Collection Time: 11/26/23 9:58 PM Result Value Ref Range Neutrophil abs 16.6 (H) 1.5 - 6.5 K/cumm Imm gran abs 0.2 (H) 0.0 - 0.1 K/cumm Lymphocyte abs 1.7 0.8 - 3.3 K/cumm Monocyte abs 2.0 (H) 0.2 - 0.8 K/cumm Eosinophil abs 0.0 0.0 - 0.5 K/cumm Basophil abs 0.1 0.0 - 0.1 K/cumm Neutrophil pct 80.6 % Imm gran pct 0.9 % Lymphocyte pct 8.3 % Monocyte pct 9.7 % Eosinophil pct 0.2 % Basophil pct 0.3 % eGFR Collection Time: 11/26/23 9:58 PM Result Value Ref Range eGFR 70 >=60 mL/min/1.73 m2 POCT glucose Collection Time: 11/26/23 10:20 PM Result Value Ref Range Glucose, POC 223 (H) 70 - 199 mg/dL HIV 1/2 Antibody plus p24 Antigen Blood Collection Time: 11/27/23 12:53 AM Specimen: Blood Result Value Ref Range HIV 1/2 ab + p24 ag Nonreactive Nonreactive POCT glucose Collection Time: 11/27/23 7:54 AM Result Value Ref Range Glucose, POC 141 70 - 199 mg/dL Additional lab tests: History of ESBL UTI at OSH in September. Imaging Results: MRI 9.27 1. Evolving changes of sigmoid diverticulitis with [...] and bone marrow, compatible with secondary hemachromatosis. Colonoscopy 11/12 Findings: The perianal and digital rectal examinations were normal. Normal mucosa was found in the descendingcolon. Biopsies were taken with a cold forceps for histology. Diffuse severe inflammation characterized by congestion (edema), granularity, loss of vascularity, pseudopolyps and scarring was found inthe sigmoid colon (starts at 40 cm, worst [...] Impression: - Normal mucosa in the descending colon. Biopsied. - Diffuse severe inflammation was found in the sigmoid colon. Biopsied. - Diffuse mild inflammation was found in the rectum. Biopsied. - Stool at the splenic flexure and procedure aborted there at that extent. Recommendation: - Await pathology results. - MR enterography and MRI pelvis today Pathology results: Diagnosis: A. Large bowel, descending colon, biopsy - Colonic mucosa with mildly active chronic colitis (crypt distortion, cryptitis) B. Rectum, biopsy - Normal colonic mucosa CT 11/03 1. Findings of perforated diverticulitis of the descending/sigmoid colon with a contained perforation. There has been interval development of numerous hypoattenuating lesions seen throughout the liver and spleen consistent with abscesses. 2. 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 3. Small left pleural effusion. The right pleural effusion has resolved in the interval. Assessment and Plan # IBD # Perforated Sigmoid Diverticulitis UC diagnosed 2022, GI now concerned for CD. Symptoms well controlled until early this summer, with onset of 5+ daily nonbloody diarrhea, fecal incontinence, 65 lb weight loss, poor appetite, early satiety. Imaging perforated sigmoid diverticulitis, has been managed conservatively. Zosyn 10/02-10/03, bactrim 10/04- LLQ tender on exam but not peritonitic. Has been taking mesalamine suppositories at home. Saw Dr Perez with CRS during October admission and had outpatient visit with him scheduled later in November to discuss elective colectomy. - c/s GI re starting immunomodulation iso active infection - c/s ID re abx, starting immunomodulation iso active infection - ESR, CRP, fecal calpro - blood cultures - CT CAP # Liver and spleen microabscesses Noted on recent imaging. Recent balaji in August, per op note GB was full of stones and difficult to grasp but low suspicion for retained gallstone as nothing seen on imaging and microabscesses are intrahepatic. During October admission IR consulted, abscesses too small to drain. - CT CAP - c/s ID # Adnexal mass Large multiseptated O RADS 3 lesion, likely arising from the right ovary found incidentally on imaging in August. Following with [facility] registrar onc, Dr. Rhodes. 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 - if surgical intervention for IBD is indicated will c/s secondary school registrar onc # Weight loss - nutrition consult # Cough Cough for past week, RVP negative in ED. Diffusely coarse breath sounds. Afebrile. Reportedly had CT chest yesterday to evaluate this but unable to see images or read. - CT CAP # Hemochromatosis Iron deposition in liver noted incidentally on recent imaging. Elevated ferritin to 1868 iso acute inflammatory process. Has had a few iron infusions (last infusion yesterday), hx of 3 lifetime bloodtransfusions. No clear mechanism for iron overload/secondary hemochromatosis at this point. - HFE # T2DM A1C in October was 5.7. Home metformin 500 q24. # HTN Takes losartan 25 at home Code - Fall Diet - Carb consistent DVT prophylaxis - subq lovenox, SCDs. Note that patient is at increased risk of VTE 2/2 IBD. Dispo - Cosigned by Suhail Alfredo MD at 11/28/2023 9:49 AM CDT * Plan of Care - Yuridia Atkinson RN - 11/25/2023 8:14 PM CDT Goals: Safety & comfort, pain management, hydration, BG control, good nutrition. Summary: Safety measures applied, needs attended, frequent rounds done, pain assessed, monitored for clinical changes, kept clean & dry, maintained a calm & restful environment. * Plan of Care - Tania Person RN - 11/25/2023 7:53 PM CDT Goals: Summary: care plan started. documented in this encounter Plan of Treatment Pending Results Name Type Priority Associated Diagnoses Date/Time Cryptococcal Antigen, Serum Blood Microbiology STAT 11/26/2023 9:58 PM CDT Osmolality, urine Lab Timed 024 9:00 PM CDT Hepatic function panel Lab Routine 10:55 PM CDT Thyroid Function Dorado Lab Routine 11/30/2023 10:55 PM CDT Vitamin D 25 hydroxy Lab Routine 11/17 10:55 PM CDT Lipase Lab STAT 12/04/2023 4:0 1 PM CDT Magnesium Lab Routine 12/05/2023 9:2 4 PM CDT Magnesium Lab Routine 12/06/2023 9:4 7 PM CDT Magnesium Lab Routine 12/07/2023 9:1 6 PM CDT Magnesium Lab Routine 12/08/2023 8:3 0 PM CDT Magnesium Lab STAT 12/09/2023 12: 27 PM CDT Hepatic function panel Lab Routine 10:15 PM CDT Mycobacteriology (AFB) culture and acid-fast stain Tissue Colon Microbiology Routine 12/24/2023 3: 00 PM STUDIO ARTIST Hepatic function panel Lab Timed 8:46 PM STUDIO ARTIST Scheduled Orders Name Type Priority Associated Diagnoses Order Schedule Cryptococcal Antigen, Serum Blood Microbiology STAT STAT for 1 Occurrences starting 11/26/2023 until 11/26/2023 Osmolality, urine Lab Timed Once fo r 1 Occurrences starting 11/27/2023 until 11/27/2023 Hepatic function panel Lab Routine Once for 1 Occurrences starting 11/30/2023 until 11/30/2023 Thyroid Function Dorado Lab Routine Once for 1 Occurrences starting 11/30/2023 until 11/30/2023 Vitamin D 25 hydroxy Lab Routine Once for 1 Occurrences starting 11/30/2023 until 11/30/2023 Lipase Lab STAT Once for 1 Occurrences starting 12/04/2023 until 12/04/2023 Magnesium Lab Routine Once for 1 Occurrences starting 12/05/2023 until 12/05/2023 Magnesium Lab Routine Once for 1 Occurrences starting 12/06/2023 until 12/06/2023 Magnesium Lab Routine Once for 1 Occurrences starting 12/07/2023 until 12/07/2023 Magnesium Lab Routine Once for 1 Occurrences starting 12/08/2023 until 12/08/2023 Magnesium Lab STAT Once for 1 Occurrences starting 12/09/2023 until 12/09/2023 Hepatic function panel Lab Routine Once for 1 Occurrences starting 12/11/2023 until 12/11/2023 Cytology Pathology and Cytology Routine Ulcerative pancolitis with complication (CMS/HCC) (HCC) Release Upon Ordering for 1 Occurrences starting 12/24/2023 Surgical pathology Pathology and Cytology Routine Ulcerative pancolitis with complication (CMS/HCC) (HCC) Release Upon Ordering for 1 Occurrences starting 12/24/2023 Hepatic function panel Lab Timed Once for 1 Occurrences starting 12/25/2023 until 12/25/2023 documented as of this encounter Procedures Procedure Name Priority Date/Time Associated Diagnosis Comments POCT GLUCOSE DEVICE Routine 12/30/2023 12:34 PM STUDIO ARTIST POCT GLUCOSE DEVICE Routine 12/30/2023 8 :18 AM STUDIO ARTIST POCT GLUCOSE DEVICE Routine 12/29/2023 8 :02 PM STUDIO ARTIST POCT GLUCOSE DEVICE Routine 12/29/2023 5 :35 PM STUDIO ARTIST POCT GLUCOSE DEVICE Routine 12/29/2023 11:55 AM STUDIO ARTIST POCT GLUCOSE DEVICE Routine 12/29/2023 7 :57 AM STUDIO ARTIST EGFR Timed 12/28/2023 10:18 PM STUDIO ARTIST CBC WITHOUT DIFFERENTIAL Timed 12/28/2023 10:18 PM STUDIO ARTIST BASIC METABOLIC PANEL Timed 12/28/2023 10:18 PM STUDIO ARTIST POCT GLUCOSE DEVICE Routine 12/28/2023 9 :13 PM STUDIO ARTIST POCT GLUCOSE DEVICE Routine 12/28/2023 4 :21 PM STUDIO ARTIST POCT GLUCOSE DEVICE Routine 12/28/2023 12:39 PM STUDIO ARTIST POCT GLUCOSE DEVICE Routine 12/28/2023 7 :33 AM STUDIO ARTIST POCT GLUCOSE DEVICE Routine 12/27/2023 8 :57 PM STUDIO ARTIST EGFR Routine 12/27/2023 8:56 PM STUDIO ARTIST CBC WITHOUT DIFFERENTIAL Routine 12/27/2023 8:56 PM STUDIO ARTIST BASIC METABOLIC PANEL Routine 12/27/2023 8:56 PM STUDIO ARTIST POCT GLUCOSE DEVICE Routine 12/27/2023 6 :29 PM STUDIO ARTIST POCT GLUCOSE DEVICE Routine 12/27/2023 12:[address] ABDOMEN PELVIS W CONTRAST ED Urgent/IP Urgent 12/27/2023 11:33 AM STUDIO ARTIST POCT GLUCOSE DEVICE Routine 12/27/2023 7 :54 AM STUDIO ARTIST DIFFERENTIAL AUTO STAT 12/27/2023 3:3 9 AM STUDIO ARTIST CBC WITH AUTO DIFFERENTIAL STAT 12/27/2023 3:39 AM STUDIO ARTIST TRANSFUSE RED BLOOD CELLS Timed 12/27/2023 12:32 AM STUDIO ARTIST PREPARE RBC Timed 12/26/2023 11:49 PM STUDIO ARTIST EGFR Timed 12/26/2023 10:32 PM STUDIO ARTIST CBC WITHOUT DIFFERENTIAL Timed 12/26/2023 10:32 PM STUDIO ARTIST BASIC METABOLIC PANEL Timed 12/26/2023 10:32 PM STUDIO ARTIST POCT GLUCOSE DEVICE Routine 12/26/2023 7 :59 PM STUDIO ARTIST POCT GLUCOSE DEVICE Routine 12/26/2023 5 :27 PM STUDIO ARTIST POCT GLUCOSE DEVICE Routine 12/26/2023 3 :49 PM STUDIO ARTIST POCT GLUCOSE DEVICE Routine 12/26/2023 12:05 PM STUDIO ARTIST POCT GLUCOSE DEVICE Routine 12/26/2023 8 :18 AM STUDIO ARTIST LACTATE STAT 12/26/2023 2:45 AM STUDIO ARTIST CBC WITHOUT DIFFERENTIAL STAT 12/26/2023 2:45 AM STUDIO ARTIST TRANSFUSE RED BLOOD CELLS Timed 12/25/2023 11:02 PM STUDIO ARTIST PREPARE RBC Timed 12/25/2023 10:25 PM STUDIO ARTIST EGFR Timed 12/25/2023 8:46 PM STUDIO ARTIST CBC WITHOUT DIFFERENTIAL Timed 12/25/2023 8:46 PM STUDIO ARTIST HEPATIC FUNCTION PANEL Timed 8:46 PM STUDIO ARTIST BASIC METABOLIC PANEL Timed 12/25/2023 8:46 PM STUDIO ARTIST POCT GLUCOSE DEVICE Routine 12/25/2023 8 :39 PM STUDIO ARTIST POCT GLUCOSE DEVICE Routine 12/25/2023 4 :[address] CHEST W CONTRAST IP Routine 12/25/2023 4 :34 PM STUDIO ARTIST POCT GLUCOSE DEVICE Routine 12/25/2023 2 :12 PM STUDIO ARTIST POCT GLUCOSE DEVICE Routine 12/25/2023 11:56 AM STUDIO ARTIST INFECTION PREVENTION ANGIE AURIS PCR, SURVEILLANCE Routine 12/25/2023 10:27 AM STUDIO ARTIST POCT GLUCOSE DEVICE Routine 12/25/2023 8 :45 AM STUDIO ARTIST EGFR Timed 12/24/2023 9:58 PM STUDIO ARTIST CBC WITHOUT DIFFERENTIAL Timed 12/24/2023 9:58 PM STUDIO ARTIST BASIC METABOLIC PANEL Timed 12/24/2023 9:58 PM STUDIO ARTIST POCT GLUCOSE DEVICE Routine 12/24/2023 8 :41 PM STUDIO ARTIST POCT GLUCOSE DEVICE Routine 12/24/2023 6 :04 PM STUDIO ARTIST POC BLOOD GAS AND CHEMISTRIES, ARTERIAL Routine 12/24/2023 4:47 PM STUDIO ARTIST POCT GLUCOSE DEVICE Routine 12/24/2023 4 :07 PM STUDIO ARTIST POC BLOOD GAS AND CHEMISTRIES, ARTERIAL Routine 12/24/2023 3:22 PM STUDIO ARTIST TISSUE AEROBIC AND ANAEROBIC CULTURE AND GRAM STAIN Routine 12/24/2023 3:00 PM STUDIO ARTIST MYCOLOGY (FUNGAL) CULTURE AND STAIN Routine 12/24/2023 3:00 PM STUDIO ARTIST MYCOBACTERIOLOGY AFB CULTURE AND ACID-FAST STAIN Routine 12/24/2023 3:00 PM STUDIO ARTIST POC BLOOD GAS AND CHEMISTRIES, ARTERIAL Routine 12/24/2023 1:47 PM STUDIO ARTIST PLACEMENT PREOPERATIVE STENT - URETERAL 12/24/2023 11:46 AM STUDIO ARTIST Ulcerative pancolitis with complication (CMS/HCC) (HCC) Case Notes 12/22@0852- Panel being added per Ahmed via phone call (EF) HYSTERECTOMY ABDOMINAL SALPINGO-OOPHORECTOMY 12/24/2023 11:46 AM STUDIO ARTIST Ulcerative pancolitis with complication (CMS/HCC) (HCC) Case Notes 12/22@0852- Panel being added per Ahmed via phone call (EF) COLOSTOMY 12/24/2023 11:46 AM STUDIO ARTIST Ulcerative pancolitis with complication (CMS/HCC) (HCC) Case Notes 12/22@0852- Panel being added per Ahmed via phone call (EF) RESECTION LEFT COLON 12/24/2023 11:46 AM STUDIO ARTIST Ulcerative pancolitis with complication (CMS/HCC) (HCC) Case Notes 12/22@0852- Panel being added per Ahmed via phone call (EF) TYPE AND SCREEN STAT 12/24/2023 11:13 AM STUDIO ARTIST POC BLOOD GAS AND CHEMISTRIES, VENOUS Routine 12/24/2023 11:09 AM STUDIO ARTIST EGFR Routine 12/22/2023 9:36 PM STUDIO ARTIST DIFFERENTIAL AUTO Routine 12/22/2023 9:3 6 PM STUDIO ARTIST CBC WITH AUTO DIFFERENTIAL Routine 12/22/2023 9:36 PM STUDIO ARTIST PROTIME-INR Routine 12/22/2023 9:36 PM STUDIO ARTIST TYPE AND SCREEN Timed 12/22/2023 9:36 PM STUDIO ARTIST MAGNESIUM Routine 12/22/2023 9:36 PM STUDIO ARTIST RENAL FUNCTION PANEL Routine 12/22/2023 9:36 PM STUDIO ARTIST INFECTION PREVENTION ANGIE AURIS PCR, SURVEILLANCE Routine 12/21/2023 9:32 PM STUDIO ARTIST EGFR Timed 12/19/2023 10:29 PM CDT DIFFERENTIAL AUTO Timed 12/19/2023 10:29 PM CDT CBC WITH AUTO DIFFERENTIAL Timed 12/19/2023 10:29 PM CDT TYPE AND SCREEN Timed 12/19/2023 10:29 PM CDT MAGNESIUM Timed 12/19/2023 10:29 PM CDT RENAL FUNCTION PANEL Timed 12/19/2023 10:29 PM CDT DIFFERENTIAL AUTO Routine 12/17/2023 8:2 7 PM CDT CBC WITH AUTO DIFFERENTIAL Routine 12/17/2023 8:27 PM CDT EGFR Timed 12/16/2023 10:51 PM CDT DIFFERENTIAL AUTO Timed 12/16/2023 10:51 PM CDT CBC WITH AUTO DIFFERENTIAL Timed 12/16/2023 10:51 PM CDT TYPE AND SCREEN Timed 12/16/2023 10:51 PM CDT MAGNESIUM Timed 12/16/2023 10:51 PM CDT RENAL FUNCTION PANEL Timed 12/16/2023 10:51 PM CDT POCT GLUCOSE [...] AUTO Timed 12/13/2023 9:5 1 PM CDT CBC WITH AUTO DIFFERENTIAL Timed 12/13/2023 9:51 PM CDT TYPE AND SCREEN Timed 12/13/2023 9:51 PM CDT MAGNESIUM Timed 12/13/2023 9:51 PM CDT RENAL FUNCTION PANEL Timed 12/13/2023 9:51 PM CDT POCT GLUCOSE [...] DEVICE Routine 12/12/2023 7 :24 AM CDT EGFR Routine 12/11/2023 10:15 PM CDT DIFFERENTIAL AUTO Routine 12/11/2023 10:15 PM CDT CBC WITH AUTO DIFFERENTIAL Routine 12/11/2023 10:15 PM CDT MAGNESIUM Routine 12/11/2023 10:15 PM CDT HEPATIC FUNCTION PANEL Routine 10:15 PM CDT RENAL FUNCTION PANEL Routine 12/11/2023 10:15 PM CDT POCT GLUCOSE DEVICE Routine 12/11/2023 9 :48 PM CDT POCT GLUCOSE DEVICE Routine 12/11/2023 4 :59 PM CDT POCT GLUCOSE DEVICE Routine 12/11/2023 11:48 AM CDT POCT GLUCOSE DEVICE Routine 12/11/2023 8 :31 AM CDT HEMOGLOBIN AND HEMATOCRIT STAT 12/11/2023 3:14 AM CDT EGFR Routine 12/11/2023 12:10 AM CDT DIFFERENTIAL AUTO Routine 12/11/2023 12:10 AM CDT CBC WITH AUTO DIFFERENTIAL Routine 12/11/2023 12:10 AM CDT TYPE AND SCREEN Timed 12/11/2023 12:10 AM CDT MAGNESIUM Routine 12/11/2023 12:10 AM CDT RENAL FUNCTION PANEL Routine 12/11/2023 12:10 AM CDT POCT GLUCOSE DEVICE Routine 12/10/2023 8 :55 PM CDT POCT GLUCOSE DEVICE Routine 12/10/2023 5 :23 PM CDT POCT GLUCOSE DEVICE Routine 12/10/2023 11:28 AM CDT POCT GLUCOSE DEVICE Routine 12/10/2023 8 :32 AM CDT EGFR Routine 12/09/2023 11:02 PM CDT DIFFERENTIAL AUTO Routine 12/09/2023 11:02 PM CDT CBC WITH AUTO DIFFERENTIAL Routine 12/09/2023 11:02 PM CDT RENAL FUNCTION PANEL Routine 12/09/2023 11:02 PM CDT POCT GLUCOSE DEVICE Routine 12/09/2023 8 :21 PM CDT POCT GLUCOSE DEVICE Routine 12/09/2023 5 :01 PM CDT URINALYSIS AND REFLEX TO MICROSCOPIC AND CULTURE Routine 12/09/2023 4:51 PM CDT LACTATE Routine 12/09/2023 3:21 PM CDT EGFR STAT 12/09/2023 12:27 PM CDT BLOOD CULTURE Routine 12/09/2023 12:27 PM CDT BLOOD CULTURE Routine 12/09/2023 12:27 PM CDT CBC WITHOUT DIFFERENTIAL STAT 12/09/2023 12:27 PM CDT MAGNESIUM STAT 12/09/2023 12:27 PM CDT BASIC METABOLIC PANEL STAT 12/09/2023 12:27 PM CDT POCT LACTATE - DEVICE Routine 12/09/2023 12:20 PM CDT POCT GLUCOSE DEVICE Routine 12/09/2023 12:02 PM CDT POCT GLUCOSE DEVICE Routine 12/09/2023 8 :12 AM CDT EGFR Routine 12/08/2023 8:30 PM CDT DIFFERENTIAL AUTO Routine 12/08/2023 8:3 0 PM CDT CBC WITH AUTO DIFFERENTIAL Routine 12/08/2023 8:30 PM CDT MAGNESIUM Routine 12/08/2023 8:30 PM CDT RENAL FUNCTION PANEL Routine 12/08/2023 8:30 PM CDT POCT GLUCOSE [...] DEVICE Routine 12/07/2023 9 :36 PM CDT INFECTION PREVENTION ANGIE AURIS PCR, SURVEILLANCE Routine 12/07/2023 9:16 PM CDT EGFR Routine 12/07/2023 9:16 PM CDT DIFFERENTIAL AUTO Routine 12/07/2023 9:1 6 PM CDT CBC WITH AUTO DIFFERENTIAL Routine 12/07/2023 9:16 PM CDT TYPE AND SCREEN Timed 12/07/2023 9:16 PM CDT MAGNESIUM Routine 12/07/2023 9:16 PM CDT RENAL FUNCTION PANEL Routine 12/07/2023 9:16 PM CDT POCT GLUCOSE DEVICE Routine 12/07/2023 5 :14 PM CDT POCT GLUCOSE DEVICE Routine 12/07/2023 11:36 AM CDT POCT GLUCOSE DEVICE Routine 12/07/2023 8 :41 AM CDT EGFR Routine 12/06/2023 9:47 PM CDT DIFFERENTIAL AUTO Routine 12/06/2023 9:4 7 PM CDT CBC WITH AUTO DIFFERENTIAL Routine 12/06/2023 9:47 PM CDT MAGNESIUM Routine 12/06/2023 9:47 PM CDT RENAL FUNCTION PANEL Routine 12/06/2023 9:47 PM CDT POCT GLUCOSE DEVICE Routine 12/06/2023 8 :07 PM CDT POCT GLUCOSE DEVICE Routine 12/06/2023 4 :57 PM CDT POCT GLUCOSE DEVICE Routine 12/06/2023 11:45 AM CDT POCT GLUCOSE DEVICE Routine 12/06/2023 7 :59 AM CDT VANCOMYCIN LEVEL TROUGH Timed 12/06/2023 4:31 AM CDT ANCA VASCULITIS PANEL Timed 12/05/2023 9:24 PM CDT EGFR Routine 12/05/2023 9:24 PM CDT DIFFERENTIAL AUTO Routine 12/05/2023 9:2 4 PM CDT CBC WITH AUTO DIFFERENTIAL Routine 12/05/2023 9:24 PM CDT MAGNESIUM Routine 12/05/2023 9:24 PM CDT RENAL FUNCTION PANEL Routine 12/05/2023 9:24 PM CDT POCT GLUCOSE DEVICE Routine 12/05/2023 8 :16 PM CDT POCT GLUCOSE DEVICE Routine 12/05/2023 4 :45 PM CDT POCT GLUCOSE DEVICE Routine 12/05/2023 11:44 AM CDT TROPONIN I HIGH-SENSITIVITY 2-HOUR Timed 12/05/2023 11:09 AM CDT DIFFERENTIAL AUTO Timed 12/05/2023 11:09 AM CDT CBC WITH AUTO DIFFERENTIAL Timed 12/05/2023 11:09 AM CDT TROPONIN I HIGH-SENSITIVITY SERIES (BASELINE, 2HR, 4HR, 6HR) Routine 12/05/2023 8:56 AM CDT POCT GLUCOSE DEVICE Routine 12/05/2023 8 :02 AM CDT TROPONIN I HIGH-SENSITIVITY 6-HOUR Timed 12/04/2023 10:19 PM CDT EGFR STAT 12/04/2023 10:19 PM CDT TYPE AND SCREEN Timed 12/04/2023 10:19 PM CDT MAGNESIUM STAT 12/04/2023 10:19 PM CDT BASIC METABOLIC PANEL STAT 12/04/2023 10:19 PM CDT DIFFERENTIAL AUTO Routine 12/04/2023 8:3 0 PM CDT CBC WITH AUTO DIFFERENTIAL Routine 12/04/2023 8:30 PM CDT TROPONIN I HIGH-SENSITIVITY 4-HOUR Timed 12/04/2023 8:14 PM CDT POCT GLUCOSE DEVICE Routine 12/04/2023 7 :55 PM CDT TROPONIN I HIGH-SENSITIVITY 2-HOUR Timed 12/04/2023 5:58 PM CDT LACTATE STAT 12/04/2023 5:58 PM CDT CRITICAL RESULT CALLBACK CARDIO CHEM Timed 12/04/2023 5:58 PM CDT EGFR Timed 12/04/2023 5:58 PM CDT DIFFERENTIAL AUTO STAT 12/04/2023 5:5 8 PM CDT CBC WITH AUTO DIFFERENTIAL STAT 12/04/2023 5:58 PM CDT RENAL FUNCTION PANEL Timed 12/04/2023 5:58 PM CDT BLOOD CULTURE STAT 12/04/2023 5:25 PM CDT EGFR STAT 12/04/2023 5:24 PM CDT MAGNESIUM STAT 12/04/2023 5:24 PM CDT LIPID PANEL STAT 12/04/2023 5:24 PM CDT COMPREHENSIVE METABOLIC PANEL STAT 12/04/2023 5:24 PM CDT POCT LACTATE - DEVICE Routine 12/04/2023 5:19 PM CDT XR CHEST 1 VIEW Critical/Life- Threatening 12/04/2023 4:55 PM CDT XR ABDOMEN AP 1 VIEW Critical/Life- Threatening 12/04/2023 4:55 PM CDT TROPONIN I HIGH-SENSITIVITY SERIES (BASELINE, 2HR, 4HR, 6HR) STAT 12/04/2023 4:02 PM CDT DIFFERENTIAL AUTO STAT 12/04/2023 4:0 2 PM CDT CBC WITH AUTO DIFFERENTIAL STAT 12/04/2023 4:02 PM CDT EGFR STAT 12/04/2023 4:01 PM CDT BLOOD CULTURE STAT 12/04/2023 4:01 PM CDT LIPASE STAT 12/04/2023 4:01 PM CDT BLOOD GAS, VENOUS STAT 12/04/2023 4:0 1 PM CDT COMPREHENSIVE METABOLIC PANEL STAT 12/04/2023 4:01 PM CDT POCT GLUCOSE [...] DIFFERENTIAL AUTO Routine 12/03/2023 12:09 AM CDT CBC WITH AUTO DIFFERENTIAL Routine 12/03/2023 12:09 AM CDT FOLATE Routine 12/03/2023 12:09 AM CDT VITAMIN B12 Routine 12/03/2023 12:09 AM CDT RENAL FUNCTION PANEL Routine 12/03/2023 12:09 AM CDT POCT GLUCOSE DEVICE Routine 12/02/2023 8 :47 PM CDT POCT GLUCOSE DEVICE Routine 12/02/2023 4 :47 PM CDT POCT GLUCOSE DEVICE Routine 12/02/2023 1 :15 PM CDT POCT GLUCOSE DEVICE Routine 12/02/2023 12:07 PM CDT BLOOD MISC TO [place] Routine 12/02/2023 9: 42 AM CDT POCT GLUCOSE DEVICE Routine 12/02/2023 8 :19 AM CDT EGFR Routine 12/01/2023 9:46 PM CDT DIFFERENTIAL AUTO Routine 12/01/2023 9:4 6 PM CDT CBC WITH AUTO DIFFERENTIAL Routine 12/01/2023 9:46 PM CDT RENAL FUNCTION PANEL Routine 12/01/2023 9:46 PM CDT POCT GLUCOSE DEVICE Routine 12/01/2023 8 :26 PM CDT POCT GLUCOSE DEVICE Routine 12/01/2023 4 :04 PM CDT POCT GLUCOSE DEVICE Routine 12/01/2023 12:02 PM CDT POCT GLUCOSE DEVICE Routine 12/01/2023 8 :27 AM CDT EGFR Routine 11/30/2023 10:55 PM CDT DIFFERENTIAL AUTO Routine 11/30/2023 10:55 PM CDT THYROID FUNCTION CASCADE Routine 11/30/2023 10:55 PM CDT CBC WITH AUTO DIFFERENTIAL Routine 11/30/2023 10:55 PM CDT VITAMIN D 25 HYDROXY Routine 11/30/2023 10:55 PM CDT PHOSPHORUS Routine 11/30/2023 10:55 PM CDT MAGNESIUM Routine 11/30/2023 10:55 PM CDT HEPATIC FUNCTION PANEL Routine 10:55 PM CDT BASIC METABOLIC PANEL Routine [...] AUTO Routine 11/29/2023 8:5 1 PM CDT CBC WITH AUTO DIFFERENTIAL Routine 11/29/2023 8:51 PM CDT PHOSPHORUS Routine 11/29/2023 8:51 PM CDT MAGNESIUM Routine 11/29/2023 8:51 PM CDT BASIC METABOLIC PANEL Routine 11/29/2023 8:51 PM CDT POCT GLUCOSE DEVICE Routine 11/29/2023 4 :20 PM CDT POCT GLUCOSE DEVICE Routine 11/29/2023 8 :28 AM CDT MOLD BLOOD CULTURE Timed 11/29/2023 12:58 AM CDT EGFR Routine 11/29/2023 12:46 AM CDT DIFFERENTIAL AUTO Routine 11/29/2023 12:46 AM CDT CBC WITH AUTO DIFFERENTIAL Routine 11/29/2023 12:46 AM CDT PHOSPHORUS Routine 11/29/2023 12:46 AM CDT MAGNESIUM Routine 11/29/2023 12:46 AM CDT BASIC METABOLIC PANEL Routine 11/29/2023 12:46 AM CDT POCT GLUCOSE DEVICE Routine 11/28/2023 8 :35 PM CDT POCT GLUCOSE DEVICE Routine 11/28/2023 4 :45 PM CDT CALPROTECTIN, FECAL Routine 11/28/2023 4 :13 PM CDT CALCIUM, IONIZED STAT 11/28/2023 4:13 PM CDT LEUKOCYTES, FECAL Routine 11/28/2023 4:1 3 PM CDT HISTOPLASMA ANTIGEN Timed 11/28/2023 3 :00 PM CDT XR CHEST 1 VIEW IP Routine 11/28/2023 12:47 PM CDT POCT GLUCOSE DEVICE Routine 11/28/2023 11:50 AM CDT PNEUMONIA PCR Routine 11/28/2023 11:02 AM CDT PNEUMONIA PCR WITH AEROBIC CULTURE AND GRAM STAIN Routine 11/28/2023 11:02 AM CDT CYTOMEGALOVIRUS (CMV) PCR QUALITATIVE Routine 11/28/2023 11:02 AM CDT ADENOVIRUS PCR QUALITATIVE Routine 11/28/2023 11:02 AM CDT CELL DIFFERENTIAL, BODY FLUID Routine 11/28/2023 11:02 AM CDT CELL COUNT W/REFLEX DIFFERENTIAL, BODY FLUID Routine 11/28/2023 11:02 AM CDT AEROBIC CULTURE AND GRAM STAIN Routine 11/28/2023 11:02 AM CDT MYCOLOGY (FUNGAL) CULTURE Routine 11/28/2023 11:02 AM CDT MYCOLOGY (FUNGAL) CULTURE Routine 11/28/2023 11:02 AM CDT MYCOBACTERIOLOGY AFB CULTURE AND ACID-FAST STAIN Routine 11/28/2023 11:02 AM CDT MYCOBACTERIOLOGY AFB CULTURE AND ACID-FAST STAIN Routine 11/28/2023 11:02 AM CDT PNEUMOCYSTIS DFA Routine 11/28/2023 11:02 AM CDT PNEUMOCYSTIS DFA Routine 11/28/2023 11:02 AM CDT LEGIONELLA CULTURE Routine 11/28/2023 11:02 AM CDT CYTOLOGY Routine 11/28/2023 10:48 AM CDT SURGICAL PATHOLOGY Routine 11/28/2023 10:48 AM CDT BRONCHOSCOPY Routine 11/28/2023 9:47 AM CDT POCT GLUCOSE DEVICE Routine 11/28/2023 8 :15 AM CDT EGFR Routine 11/28/2023 1:10 AM CDT DIFFERENTIAL AUTO Routine 11/28/2023 1:1 0 AM CDT CBC WITH AUTO DIFFERENTIAL Routine 11/28/2023 1:10 AM CDT ASPERGILLUS GALACTOMANNAN ANTIGEN STAT 11/28/2023 1:10 AM CDT APTT Routine 11/28/2023 1:10 AM CDT ERYTHROCYTE SEDIMENTATION RATE Timed 11/28/2023 1:10 AM CDT PROTIME-INR Routine 11/28/2023 1:10 AM CDT TYPE AND SCREEN STAT 11/28/2023 1:10 AM CDT CRP (ACUTE PHASE) Timed 11/28/2023 1:1 0 AM CDT PHOSPHORUS Routine 11/28/2023 1:10 AM CDT OSMOLALITY, BLOOD Timed 11/28/2023 1:1 0 AM CDT MAGNESIUM Routine 11/28/2023 1:10 AM CDT BASIC METABOLIC PANEL Routine 11/28/2023 1:10 AM CDT SODIUM, URINE, RANDOM Timed 11/27/2023 9:00 PM CDT POTASSIUM, URINE, RANDOM Timed 11/27/2023 9:00 PM CDT OSMOLALITY, URINE Timed 11/27/2023 9:0 0 PM CDT CHLORIDE, URINE, RANDOM Timed 11/27/2023 9:00 PM CDT POCT GLUCOSE DEVICE Routine 11/27/2023 7 :46 PM CDT POCT GLUCOSE DEVICE Routine 11/27/2023 5 :35 PM CDT POCT GLUCOSE DEVICE Routine 11/27/2023 11:45 AM CDT POCT GLUCOSE DEVICE Routine 11/27/2023 7 :54 AM CDT BLASTOMYCES ANTIBODY, EIA, S Routine 11/27/2023 12:54 AM CDT HISTOPLASMA ANTIBODY Routine 11/27/2023 12:53 AM CDT HIV 1/2 ANTIBODY PLUS P24 ANTIGEN Routine 11/27/2023 12:53 AM CDT CRYPTOCOCCAL ANTIGEN, SERUM Routine 11/27/2023 12:53 AM CDT BLOOD CULTURE STAT 11/27/2023 12:53 AM CDT BLOOD CULTURE STAT 11/27/2023 12:53 AM CDT MYCOBACTERIOLOGY AFB BLOOD CULTURE STAT 11/27/2023 12:53 AM CDT MYCOBACTERIOLOGY AFB BLOOD CULTURE STAT 11/27/2023 12:53 AM CDT POCT GLUCOSE DEVICE Routine 11/26/2023 10:20 PM CDT EGFR Routine 11/26/2023 9:58 PM CDT DIFFERENTIAL AUTO Routine 11/26/2023 9:5 8 PM CDT CBC WITH AUTO DIFFERENTIAL Routine 11/26/2023 9:58 PM CDT PHOSPHORUS Routine 11/26/2023 9:58 PM CDT MAGNESIUM Routine 11/26/2023 9:58 PM CDT BASIC METABOLIC PANEL Routine 11/26/2023 9:58 PM CDT POCT GLUCOSE DEVICE Routine 11/26/2023 5 :[address] CHEST ABDOMEN PELVIS W CONTRAST IP Routine 11/26/2023 2:10 PM CDT POCT GLUCOSE DEVICE Routine 11/26/2023 11:49 AM CDT POCT GLUCOSE DEVICE Routine 11/26/2023 9 :06 AM CDT C. DIFFICILE TESTING Routine 11/26/2023 1:10 AM CDT INFECTION PREVENTION VRE CULTURE Routine 11/26/2023 1:10 AM CDT EGFR STAT 11/25/2023 10:52 PM CDT APTT STAT 11/25/2023 10:52 PM CDT PROTIME-INR STAT 11/25/2023 10:52 PM CDT CBC WITHOUT DIFFERENTIAL STAT 11/25/2023 10:52 PM CDT TYPE AND SCREEN Timed 11/25/2023 10:52 PM CDT PHOSPHORUS STAT 11/25/2023 10:52 PM CDT MAGNESIUM STAT 11/25/2023 10:52 PM CDT BASIC METABOLIC PANEL STAT 11/25/2023 10:52 PM CDT POCT GLUCOSE DEVICE Routine 11/25/2023 9 :45 PM CDT RESPIRATORY PATHOGEN PANEL Routine 11/25/2023 9:40 PM CDT documented in this encounter Results * POCT glucose (12/30/2023 12:34 PM STUDIO ARTIST) Glucose, POC 182 70 - 199 mg/dL Blood 12/30/2023 12:3 4 PM STUDIO ARTIST 12/30/2023 12:34 PM STUDIO ARTIST Yo Perez MD LAB POCT ORDERABLES - DEVICE Final Result Performing Organization Address City/[facility]/ZIP Co de Phone Number [facility] [place] [address] * POCT glucose (12/30/2023 8:18 AM STUDIO ARTIST) Glucose, POC 109 70 - 199 mg/dL Blood 12/30/2023 8:18 AM STUDIO ARTIST 12/30/2023 8:18 AM STUDIO ARTIST Yo Perez MD LAB POCT ORDERABLES - DEVICE Final Result Performing Organization Address City/[facility] Co de Phone Number [facility] [place] [address] * POCT glucose (12/29/2023 8:02 PM STUDIO ARTIST) Glucose, POC 142 70 - 199 mg/dL Blood 12/29/2023 8:02 PM STUDIO ARTIST 12/29/2023 8:02 PM STUDIO ARTIST Yo Perez MD LAB POCT ORDERABLES - DEVICE Final Result Performing Organization Address City/[facility]/ZIP Co de Phone Number [facility] [place] [address] * POCT glucose (12/29/2023 5:35 PM STUDIO ARTIST) Glucose, POC 166 70 - 199 mg/dL Blood 12/29/2023 5:35 PM STUDIO ARTIST 12/29/2023 5:35 PM STUDIO ARTIST Yo Perez MD LAB POCT ORDERABLES - DEVICE Final Result Performing Organization Address [facility] de Phone Number [facility] [place] [address] * POCT glucose (12/29/2023 11:55 AM STUDIO ARTIST) Pathologist [facility] Glucose, POC 130 70 - 199 mg/dL Blood 12/29/2023 11:5 5 AM STUDIO ARTIST 12/29/2023 11:55 AM STUDIO ARTIST Yo Perez MD LAB POCT ORDERABLES - DEVICE Final Result Performing Organization Address [facility] de Phone Number [facility] [place] [address] * POCT glucose (12/29/2023 7:57 AM STUDIO ARTIST) Pathologist [facility] Glucose, POC 122 70 - 199 mg/dL Blood 12/29/2023 7:57 AM STUDIO ARTIST 12/29/2023 7:57 AM STUDIO ARTIST Yo Perez MD LAB POCT ORDERABLES - DEVICE Final Result Performing Organization Address [facility] de Phone Number [facility] [place] [address] * eGFR (12/28/2023 10:18 PM STUDIO ARTIST) Pathologist [facility] eGFR 83 >=60 mL/min/1. 73 m2 Comment: [...] reviewed 2020. Blood 12/28/2023 10:1 8 PM STUDIO ARTIST 12/28/2023 11:12 PM STUDIO ARTIST us Yo Perez MD LAB BLOOD ORDERABLES Final R esult [facility] [place] [address] * (ABNORMAL) Basic metabolic panel (12/28/2023 10:18 PM STUDIO ARTIST) Pathologist [facility] Sodium 138 135 - 145 mmol/L Potassium, pl 4.4 3.3 - 4.9 mmol/L [facility] Chloride 104 97 - 110 mmol/L [facility] CO2 26 22 - 32 mmol/L [facility] Anion gap 8 2 - 15 mmol/L [facility] BUN 20 6 - 25 mg/dL [facility] Creatinine 0.79 0.60 - 1.10 mg/dL [facility] Glucose 135 70 - 199 mg/dL [facility] Comment: Interpretive Data Fasting glucose >/= [...] 2022. Calcium 8.1(L) 8.5 - 10.3 mg/dL [facility] Blood 12/28/2023 10:1 8 PM STUDIO ARTIST 12/28/2023 11:12 PM STUDIO ARTIST us Yo Perez MD LAB BLOOD ORDERABLES Final R esult [facility] [place] [address] * (ABNORMAL) CBC without differential (12/28/2023 10:18 PM STUDIO ARTIST) WBC 10.9(H) 3.8 - 9.9 K/cumm Hgb 9.3(L) 11.9 - 15.5 g/dL [facility] Hct 29.5(L) 35.6 - 45.5 % [facility] Plt 384 150 - 400 K/cumm [facility] MPV 8.9(L) 9.1 - 12.3 fL [facility] RBC 3.42(L) 3.90 - 5.20 M/cumm [facility] MCV 86.3 81.3 - 96.4 fL [facility] MCH 27.2 27.1 - 33.3 pg [facility] MCHC 31.5(L) 32.3 - 35.7 g/dL [facility] RDW CV 17.2(H) 11.1 - 14.9 % [facility] RDW SD 54.6(H) 35.7 - 48.1 fL [facility] NRBC abs 0.00 0.00 - 0.01 K/cumm [facility] Blood 12/28/2023 10:1 8 PM STUDIO ARTIST 12/28/2023 11:11 PM STUDIO ARTIST us Yo Perez MD LAB BLOOD ORDERABLES Final R esult Performing Organization Address [facility] Co de Phone Number [facility] [place] [address] * POCT glucose (12/28/2023 9:13 PM STUDIO ARTIST) Glucose, POC 160 70 - 199 mg/dL Blood 12/28/2023 9:13 PM STUDIO ARTIST 12/28/2023 9:13 PM STUDIO ARTIST us Yo Perez MD LAB POCT ORDERABLES - DEVICE Final Result Performing Organization Address [facility] de Phone Number [facility] Department [place] [address] * POCT glucose (12/28/2023 4:21 PM STUDIO ARTIST) Glucose, POC 125 70 - 199 mg/dL Blood 12/28/2023 4:21 PM STUDIO ARTIST 12/28/2023 4:21 PM STUDIO ARTIST us Yo Perez MD LAB POCT ORDERABLES - DEVICE Final Result Performing Organization Address [facility] de Phone Number [facility] [place] [address] * POCT glucose (12/28/2023 12:39 PM STUDIO ARTIST) Glucose, POC 165 70 - 199 mg/dL Blood 12/28/2023 12:3 9 PM STUDIO ARTIST 12/28/2023 12:39 PM STUDIO ARTIST us Yo Perez MD LAB POCT ORDERABLES - DEVICE Final Result Performing Organization Address City/[facility] de Phone Number [facility] [place] [address] * POCT glucose (12/28/2023 7:33 AM STUDIO ARTIST) Glucose, POC 101 70 - 199 mg/dL Blood 12/28/2023 7:33 AM STUDIO ARTIST 12/28/2023 7:33 AM STUDIO ARTIST us Yo Perez MD LAB POCT ORDERABLES - DEVICE Final Result Performing Organization Address [facility] de Phone Number [facility] [place] [address] * POCT glucose (12/27/2023 8:57 PM STUDIO ARTIST) Glucose, POC 113 70 - 199 mg/dL Blood 12/27/2023 8:57 PM STUDIO ARTIST 12/27/2023 8:57 PM STUDIO ARTIST us Yo Perez MD LAB POCT ORDERABLES - DEVICE Final Result Performing Organization Address [facility] de Phone Number [facility] Department [place] [address] * eGFR (12/27/2023 8:56 PM STUDIO ARTIST) eGFR 71 >=60 mL/min/1. 73 m2 Comment: [...] last reviewed 2020. Blood 12/27/2023 8:56 PM STUDIO ARTIST 12/27/2023 9:53 PM STUDIO ARTIST us Yo Perez MD LAB BLOOD ORDERABLES Final R esult [facility] [place] [address] * (ABNORMAL) Basic metabolic panel (12/27/2023 8:56 PM STUDIO ARTIST) [facility] Sodium 137 135 - 145 mmol/L Potassium, pl 4.0 3.3 - 4.9 mmol/L [facility] Chloride 104 97 - 110 mmol/L [facility] CO2 27 22 - 32 mmol/L [facility] Anion gap 6 2 - 15 mmol/L [facility] BUN 22 6 - 25 mg/dL [facility] Creatinine 0.90 0.60 - 1.10 mg/dL [facility] Glucose 98 70 - 199 mg/dL [facility] Comment: Interpretive Data Fasting glucose >/= [...] 2022. Calcium 8.0(L) 8.5 - 10.3 mg/dL [facility] Blood 12/27/2023 8:56 PM STUDIO ARTIST 12/27/2023 9:53 PM STUDIO ARTIST Yo Perez MD LAB BLOOD ORDERABLES Final R esult Performing Organization Address City/[facility]/ZIP Co de Phone Number [facility] Department [place] [address] * (ABNORMAL) CBC without differential (12/27/2023 8:56 PM STUDIO ARTIST) WBC 10.9(H) 3.8 - 9.9 K/cumm Hgb 8.5(L) 11.9 - 15.5 g/dL [facility] Hct 27.6(L) 35.6 - 45.5 % [facility] Plt 364 150 - 400 K/cumm [facility] MPV 9.2 9.1 - 12.3 fL [facility] RBC 3.15(L) 3.90 - 5.20 M/cumm [facility] MCV 87.6 81.3 - 96.4 fL [facility] MCH 27.0(L) 27.1 - 33.3 pg [facility] MCHC 30.8(L) 32.3 - 35.7 g/dL [facility] RDW CV 17.5(H) 11.1 - 14.9 % [facility] RDW SD 55.9(H) 35.7 - 48.1 fL [facility] NRBC abs 0.00 0.00 - 0.01 K/cumm [facility] Blood 12/27/2023 8:56 PM STUDIO ARTIST 12/27/2023 9:53 PM STUDIO ARTIST us Yo Perez MD LAB BLOOD ORDERABLES Final R esult [facility] Department [place] [address] * POCT glucose (12/27/2023 6:29 PM STUDIO ARTIST) Glucose, POC 196 70 - 199 mg/dL Blood 12/27/2023 6:29 PM STUDIO ARTIST 12/27/2023 6:29 PM STUDIO ARTIST Yo Perez MD LAB POCT ORDERABLES - DEVICE Final Result Performing Organization Address [facility] [place] [address] * POCT glucose (12/27/2023 12:36 PM STUDIO ARTIST) Glucose, POC 164 70 - 199 mg/dL Blood 12/27/2023 12:3 6 PM STUDIO ARTIST 12/27/2023 12:36 PM STUDIO ARTIST Yo Perez MD LAB POCT ORDERABLES - DEVICE Final Result Performing Organization Address [facility] [place] [address] * CT Abdomen Pelvis W Contrast (12/27/2023 11:33 AM STUDIO ARTIST) Anatomical Region Laterality Modality Body N/A Computed Tomogra phy 12/27/2023 12:1 1 PM STUDIO ARTIST Impressions 12/27/2023 12:11 PM STUDIO ARTIST 1. ??Status post left colectomy and hysterectomy [...] Jayro Wheeler M.D. Narrative 12/27/2023 12:11 PM STUDIO ARTIST EXAMINATION: ??Computed tomography of the abdomen and [...] Electronically signed by: Jayro Wheeler M.D. Yo Perez MD IMG CT PROCEDURES Final Resu lt * POCT glucose (12/27/2023 7:54 AM STUDIO ARTIST) [facility] Glucose, POC 115 70 - 199 mg/dL Blood 12/27/2023 7:54 AM STUDIO ARTIST 12/27/2023 7:54 AM STUDIO ARTIST Yo Perez MD LAB POCT ORDERABLES - DEVICE Final Result [facility] [place] [address] * (ABNORMAL) Differential, auto (12/27/2023 3:39 AM STUDIO ARTIST) [facility] Neutrophil abs 8.3(H) 1.5 - 6.5 K/cumm Imm gran abs 0.1 0.0 - 0.1 K/cumm [facility] Lymphocyte abs 1.3 0.8 - 3.3 K/cumm [facility] Monocyte abs 0.9(H) 0.2 - 0.8 K/cumm [facility] Eosinophil abs 0.5 0.0 - 0.5 K/cumm [facility] Basophil abs 0.0 0.0 - 0.1 K/cumm [facility] Neutrophil pct 74.4 % [facility] Comment: Interpretive Data Percent cell count reference ranges are not reported, since discordance with absolute values may lead to misinterpretation of CBC data. Current Interpretive Data was last revised on 2017. Imm gran pct 0.5 % [facility] Comment: Interpretive Data Percent cell count reference ranges are not reported, since discordance with absolute values may lead to misinterpretation of CBC data. Current Interpretive Data was last revised on 2017. Lymphocyte pct 11.9 % [facility] Comment: Interpretive Data Percent cell count reference ranges are not reported, since discordance with absolute values may lead to misinterpretation of CBC data. Current Interpretive Data was last revised on 2017. Monocyte pct 8.1 % [facility] Comment: Interpretive Data Percent cell count reference ranges are not reported, since discordance with absolute values may lead to misinterpretation of CBC data. Current Interpretive Data was last revised on 2017. Eosinophil pct 4.8 % [facility] Comment: Interpretive Data Percent cell count reference ranges are not reported, since discordance with absolute values may lead to misinterpretation of CBC data. Current Interpretive Data was last revised on 2017. Basophil pct 0.3 % [facility] Comment: Interpretive Data Percent cell count reference ranges are not reported, since discordance with absolute values may lead to misinterpretation of CBC data. Current Interpretive Data was last revised on 2017. Blood 12/27/2023 3:39 AM STUDIO ARTIST 12/27/2023 4:45 AM STUDIO ARTIST us Mario Massey MD LAB BLOOD O RDERABLES Final Result [facility] [place] [address] * (ABNORMAL) CBC with auto differential (12/27/2023 3:39 AM STUDIO ARTIST) WBC 11.2(H) 3.8 - 9.9 K/cumm Hgb 8.5(L) 11.9 - 15.5 g/dL [facility] Hct 26.7(L) 35.6 - 45.5 % [facility] Plt 288 150 - 400 K/cumm [facility] MPV 9.6 9.1 - 12.3 fL [facility] RBC 3.14(L) 3.90 - 5.20 M/cumm [facility] MCV 85.0 81.3 - 96.4 fL [facility] MCH 27.1 27.1 - 33.3 pg [facility] MCHC 31.8(L) 32.3 - 35.7 g/dL [facility] RDW CV 17.1(H) 11.1 - 14.9 % [facility] RDW SD 53.3(H) 35.7 - 48.1 fL [facility] NRBC abs 0.00 0.00 - 0.01 K/cumm [facility] Blood 12/27/2023 3:3 9 AM STUDIO ARTIST 12/27/2023 4:45 AM STUDIO ARTIST us Mario Massey MD LAB BLOOD O RDERABLES Final Result Performing Organization Address City/[facility]/ZIP Co de Phone Number [facility] Department [place] [address] * Transfuse RBC (12/27/2023 2:47 AM STUDIO ARTIST) Blood us Yo Perez MD BLOOD TRANSFUSION ORDERABLES Final Result [facility] [place] [address] * Transfuse RBC: 1 Units (12/27/2023 2:47 AM STUDIO ARTIST) Blood us Yo Perez MD BLOOD TRANSFUSION ORDERABLES Final Result * Prepare RBC: 1 Units (12/26/2023 11:49 PM STUDIO ARTIST) [facility] Product code [id number] Unit Number [id number] [facility] Product Blood Type OPOS [facility] Dispense Status PRESUMED TRANSFUSED [facility] Blood 12/26/2023 11:4 9 PM STUDIO ARTIST 12/26/2023 11:49 PM STUDIO ARTIST Narrative [facility] - 12/27/2023 8:00 AM STUDIO ARTIST Are special requirements needed? (All products are leukoreduced and CMV- safe)- >No Date required:-20231226 LRRBC # of [id number] Reasons:-Hgb <7 g/dL} us Yo Perez MD BLOOD BANK PRODUCT ORDERABLE S Final Result [facility] [place] [address] * (ABNORMAL) eGFR (12/26/2023 10:32 PM STUDIO ARTIST) eGFR 59(L) >=60 mL/min/1. 73 m2 Comment: [...] reviewed 2020. Blood 12/26/2023 10:3 2 PM STUDIO ARTIST 12/26/2023 11:21 PM STUDIO ARTIST Bobby Tyler INDUSTRIAL SECURITY ANALYST LAB BLOOD ORDERABLES Final Res ult Performing Organization Address City/[facility]/ZIP Co de Phone Number [facility] Department [place] [address] * (ABNORMAL) Basic metabolic panel (12/26/2023 10:32 PM STUDIO ARTIST) Pathologist [facility] Sodium 137 135 - 145 mmol/L Potassium, pl 3.9 3.3 - 4.9 mmol/L [facility] Chloride 103 97 - 110 mmol/L [facility] CO2 26 22 - 32 mmol/L [facility] Anion gap 8 2 - 15 mmol/L [facility] BUN 21 6 - 25 mg/dL [facility] Creatinine 1.05 0.60 - 1.10 mg/dL [facility] Glucose 121 70 - 199 mg/dL [facility] Comment: Interpretive Data Fasting glucose >/= [...] 2022. Calcium 7.7(L) 8.5 - 10.3 mg/dL [facility] Blood 12/26/2023 10:3 2 PM STUDIO ARTIST 12/26/2023 11:21 PM STUDIO ARTIST Bobby Tyler INDUSTRIAL SECURITY ANALYST LAB BLOOD ORDERABLES Final Res ult Performing Organization Address [facility] Co de Phone Number [facility] Department [place] [address] * (ABNORMAL) CBC without differential (12/26/2023 10:32 PM STUDIO ARTIST) Pathologist [facility] WBC 10.1(H) 3.8 - 9.9 K/cumm Hgb 6.2(C) 11.9 - 15.5 g/dL [facility] Comment:Critical result call ed to and read back by ALISON DAWSON RN on 12 26 2023 at 2335 to [place]. Hct 20.5(L) 35.6 - 45.5 % [facility] Plt 323 150 - 400 K/cumm [facility] MPV 9.4 9.1 - 12.3 fL [facility] RBC 2.33(L) 3.90 - 5.20 M/cumm [facility] MCV 88.0 81.3 - 96.4 fL [facility] MCH 26.6(L) 27.1 - 33.3 pg [facility] MCHC 30.2(L) 32.3 - 35.7 g/dL [facility] RDW CV 17.2(H) 11.1 - 14.9 % [facility] RDW SD 55.1(H) 35.7 - 48.1 fL [facility] NRBC abs 0.00 0.00 - 0.01 K/cumm [facility] Blood 12/26/2023 10:3 2 PM STUDIO ARTIST 12/26/2023 11:21 PM STUDIO ARTIST us Bobby Tyler INDUSTRIAL SECURITY ANALYST LAB BLOOD ORDERABLES Final Res ult Performing Organization Address City/[facility]/ZIP Co de Phone Number [facility] Department [place] [address] * POCT glucose (12/26/2023 7:59 PM STUDIO ARTIST) [facility] Glucose, POC 151 70 - 199 mg/dL Blood 12/26/2023 7:59 PM STUDIO ARTIST 12/26/2023 7:59 PM STUDIO ARTIST us Yo Perez MD LAB POCT ORDERABLES - DEVICE Final Result [facility] Department [place] [address] * (ABNORMAL) POCT glucose (12/26/2023 5:27 PM STUDIO ARTIST) Glucose, POC 213(H) 70 - 199 mg/dL Blood 12/26/2023 5:27 PM STUDIO ARTIST 12/26/2023 5:27 PM STUDIO ARTIST Yo Perez MD LAB POCT ORDERABLES - [place] [address] * (ABNORMAL) POCT glucose (12/26/2023 3:49 PM STUDIO ARTIST) Glucose, POC 208(H) 70 - 199 mg/dL Blood 12/26/2023 3:49 PM STUDIO ARTIST 12/26/2023 3:49 PM STUDIO ARTIST us Yo Perez MD LAB POCT ORDERABLES - DEVICE Final Result Performing Organization Address City/[facility]/[place] [address] * POCT glucose (12/26/2023 12:05 PM STUDIO ARTIST) Glucose, POC 158 70 - 199 mg/dL Blood 12/26/2023 12:0 5 PM STUDIO ARTIST 12/26/2023 12:05 PM STUDIO ARTIST Yo Perez MD LAB POCT ORDERABLES - DEVICE Final Result Performing Organization Address City/[facility]/[place] [address] * POCT glucose (12/26/2023 8:18 AM STUDIO ARTIST) Glucose, POC 125 70 - 199 mg/dL Blood 12/26/2023 8:18 AM STUDIO ARTIST 12/26/2023 8:18 AM STUDIO ARTIST Yo Perez MD LAB POCT ORDERABLES - DEVICE Final Result Performing Organization Address [facility] de Phone Number [facility] Department [place] [address] * (ABNORMAL) Lactate (12/26/2023 2:45 AM STUDIO ARTIST) [facility] Lactate 2.2(H) 0.7 - 2.0 mmol/L Blood 12/26/2023 2:45 AM STUDIO ARTIST 12/26/2023 3:17 AM STUDIO ARTIST Narrative [facility] - 12/26/2023 4:18 AM STUDIO ARTIST To be drawn after prbc administration Yo Perez MD LAB BLOOD ORDERABLES Final R esult Performing Organization Address [facility] de Phone Number [facility] Department [place] [address] * (ABNORMAL) CBC without differential (12/26/2023 2:45 AM STUDIO ARTIST) [facility] WBC 13.4(H) 3.8 - 9.9 K/cumm Hgb 7.4(L) 11.9 - 15.5 g/dL [facility] Hct 24.2(L) 35.6 - 45.5 % [facility] Plt 285 150 - 400 K/cumm [facility] MPV 9.7 9.1 - 12.3 fL [facility] RBC 2.77(L) 3.90 - 5.20 M/cumm [facility] MCV 87.4 81.3 - 96.4 fL [facility] MCH 26.7(L) 27.1 - 33.3 pg [facility] MCHC 30.6(L) 32.3 - 35.7 g/dL [facility] RDW CV 17.2(H) 11.1 - 14.9 % [facility] RDW SD 55.9(H) 35.7 - 48.1 fL [facility] NRBC abs 0.00 0.00 - 0.01 K/cumm [facility] Blood 12/26/2023 2:45 AM STUDIO ARTIST 12/26/2023 3:17 AM STUDIO ARTIST Narrative [facility] - 12/26/2023 4:08 AM STUDIO ARTIST 1 hour after transfusion of red blood cells is complete us Yo Perez MD LAB BLOOD ORDERABLES Final R esult Performing Organization Address [facility] Co de Phone Number [facility] Department [place] [address] * Transfuse RBC (12/26/2023 12:57 AM STUDIO ARTIST) Blood us Yo Perez MD BLOOD TRANSFUSION ORDERABLES Final Result Performing Organization Address [facility] de Phone Number [facility] Department [place] [address] * Transfuse RBC: 1 Units (12/26/2023 12:57 AM STUDIO ARTIST) Blood Yo Perez MD BLOOD TRANSFUSION ORDERABLES Final Result * Prepare RBC: 1 Units (12/25/2023 10:25 PM STUDIO ARTIST) Product code [id number] Unit Number [id number] [facility] Product Blood Type OPOS [facility] Dispense Status PRESUMED TRANSFUSED [facility] Blood 12/25/2023 10:2 5 PM STUDIO ARTIST 12/25/2023 10:29 PM STUDIO ARTIST Narrative [facility] - 12/26/2023 8:00 AM STUDIO ARTIST Are special requirements needed? (All products are leukoreduced and CMV- safe)- >No Date required:-20231225 LRRBC # of [id number] Reasons:-Hgb <7 g/dL} Yo Perez MD BLOOD BANK PRODUCT ORDERABLE S Final Result Performing Organization Address [facility] de Phone Number [facility] [place] [address] * (ABNORMAL) Hepatic function panel (12/25/2023 8:46 PM STUDIO ARTIST) Bilirubin, total <0.2 0.1 - 1.2 mg/dL Bilirubin, direct <0.2 0.1 - 0.3 mg/dL [facility] Protein, pl 5.2(L) 6.5 - 8.5 g/dL [facility] Albumin 2.1(L) 3.5 - 5.0 g/dL [facility] Alk phos 67 40 - 130 Units/L [facility] ALT 9 7 - 45 Units/L [facility] AST 17 10 - 45 Units/L [facility] Blood 12/25/2023 8:46 PM STUDIO ARTIST 12/25/2023 10:01 PM STUDIO ARTIST Yo Perez MD LAB BLOOD ORDERABLES Final R esult Performing Organization Address [facility] de Phone Number [facility] Department [place] [address] * (ABNORMAL) eGFR (12/25/2023 8:46 PM STUDIO ARTIST) eGFR 58(L) >=60 mL/min/1. 73 m2 Comment: [...] last reviewed 2020. Blood 12/25/2023 8:46 PM STUDIO ARTIST 12/25/2023 10:01 PM STUDIO ARTIST us Parmjit Meehan MD LAB BLOOD ORDERABLES Final Resul t [facility] Department [place] [address] * (ABNORMAL) Basic metabolic panel (12/25/2023 8:46 PM STUDIO ARTIST) Sodium 133(L) 135 - 145 mmol/L Potassium, pl 3.9 3.3 - 4.9 mmol/L [facility] Chloride 99 97 - 110 mmol/L [facility] CO2 24 22 - 32 mmol/L [facility] Anion gap 10 2 - 15 mmol/L [facility] BUN 20 6 - 25 mg/dL [facility] Creatinine 1.07 0.60 - 1.10 mg/dL [facility] Glucose 171 70 - 199 mg/dL [facility] Comment: Interpretive Data Fasting glucose >/= [...] 2022. Calcium 7.8(L) 8.5 - 10.3 mg/dL [facility] Blood 12/25/2023 8:46 PM STUDIO ARTIST 12/25/2023 10:01 PM STUDIO ARTIST N[facility]ative [facility] - 12/25/2023 11:46 PM STUDIO ARTIST Obtain POD 1 at 2200. us Parmjit Meehan MD LAB BLOOD ORDERABLES Final Resul t [facility] [place] [address] * (ABNORMAL) CBC without differential (12/25/2023 8:46 PM STUDIO ARTIST) WBC 11.1(H) 3.8 - 9.9 K/cumm Hgb 6.4(C) 11.9 - 15.5 g/dL [facility] Comment:Critical result call ed to and read back by KATY GONSALEZ RN on 12 25 2023 at 2221 to [place]eta [place]. Hct 21.2(L) 35.6 - 45.5 % [facility] Plt 314 150 - 400 K/cumm [facility] MPV 9.5 9.1 - 12.3 fL [facility] RBC 2.43(L) 3.90 - 5.20 M/cumm [facility] MCV 87.2 81.3 - 96.4 fL [facility] MCH 26.3(L) 27.1 - 33.3 pg [facility] MCHC 30.2(L) 32.3 - 35.7 g/dL [facility] RDW CV 17.6(H) 11.1 - 14.9 % [facility] RDW SD 56.3(H) 35.7 - 48.1 fL [facility] NRBC abs 0.00 0.00 - 0.01 K/cumm [facility] Blood 12/25/2023 8:46 PM STUDIO ARTIST 12/25/2023 10:01 PM STUDIO ARTIST Narrative [facility] - 12/25/2023 10:22 PM STUDIO ARTIST Obtain POD 1 at 2200. us Parmjit Meehan MD LAB BLOOD ORDERABLES Final Resul t Performing Organization Address [facility] Co de Phone Number [facility] [place] [address] * POCT glucose (12/25/2023 8:39 PM STUDIO ARTIST) Glucose, POC 193 70 - 199 mg/dL Blood 12/25/2023 8:39 PM STUDIO ARTIST 12/25/2023 8:39 PM STUDIO ARTIST us Yo Perez MD LAB POCT ORDERABLES - DEVICE Final Result Performing Organization Address [facility] [place] [address] * POCT glucose (12/25/2023 4:57 PM STUDIO ARTIST) Glucose, POC 194 70 - 199 mg/dL Blood 12/25/2023 4:57 PM STUDIO ARTIST 12/25/2023 4:57 PM STUDIO ARTIST Yo Perez MD LAB POCT ORDERABLES - DEVICE Final Result Performing Organization Address [facility] [place] [address] * CT Chest W Contrast (12/25/2023 4:34 PM STUDIO ARTIST) Anatomical Region Laterality Modality Body N/A Computed Tomogra phy 12/25/2023 5:14 PM STUDIO ARTIST Impressions 12/25/2023 5:15 PM STUDIO ARTIST Interval resolution of left upper and lower lobe cavitary nodular consolidations with residual atelectasis. ??Small bilateral pleural effusions. Dictated by: Katy Coyne MD The radiology attending physician has personally reviewed this study, and had reviewed and/or edited this written report and agrees with it. Electronically signed by: Brad Greene M.D. Narrative 12/25/2023 5:15 PM STUDIO ARTIST EXAMINATION: ??Computed tomography of the chest and [...] Electronically signed by: Brad Greene M.D. Yo Perez MD IMG CT PROCEDURES Final Resu lt * POCT glucose (12/25/2023 2:12 PM STUDIO ARTIST) Glucose, POC 159 70 - 199 mg/dL Blood 12/25/2023 2:12 PM STUDIO ARTIST 12/25/2023 2:12 PM STUDIO ARTIST Yo Perez MD LAB POCT ORDERABLES - DEVICE Final Result Performing Organization Address [facility] Co de Phone Number [facility] Department [place] [employer] [place] [address] * POCT glucose (12/25/2023 11:56 AM STUDIO ARTIST) [facility] Glucose, POC 191 70 - 199 mg/dL Blood 12/25/2023 11:5 6 AM STUDIO ARTIST 12/25/2023 11:56 AM STUDIO ARTIST oY Perez MD LAB POCT ORDERABLES - DEVICE Final Result Performing Organization Address [facility] Co de Phone Number [facility] Department [place] [address] * Infection Prevention Angie auris PCR, surveillance Axilla/Groin (12/25/2023 10:27 AM STUDIO ARTIST) [facility] Angie auris DNA Not Detected Not Detected [facility] Comment: Interpretive Data Testing performed by [facility] Molecular Infectious Disease Laboratory using the [employer] MDX Angie auris assay. ??This assay detects DNA from Angie auris using Real-Time PCR. ??This assay is laboratory developed and is not cleared by the [place] Food and Drug Administration. ??The performance characteristics have been verified by the [facility] Molecular Infectious Disease Laboratory. Interpretive data was last reviewed on 06/11/2023 Axilla/Groin 12/25/2023 10:2 7 AM STUDIO ARTIST 12/25/2023 10:47 AM STUDIO ARTIST us Familia So MD LAB MICROBIOLOGY - GENERAL OR DERABLES Final Result Performing Organization Address [facility] Co de Phone Number [facility] [place] [address] BJ * POCT glucose (12/25/2023 8:45 AM STUDIO ARTIST) Glucose, POC 134 70 - 199 mg/dL Blood 12/25/2023 8:45 AM STUDIO ARTIST 12/25/2023 8:45 AM STUDIO ARTIST us Yo Perez MD LAB POCT ORDERABLES - DEVICE Final Result Performing Organization Address [facility] de Phone Number [facility] Department [place] [address] * eGFR (12/24/2023 9:58 PM STUDIO ARTIST) eGFR 75 >=60 mL/min/1. 73 m2 Comment: [...] last reviewed 2020. Blood 12/24/2023 9:58 PM STUDIO ARTIST 12/24/2023 11:10 PM STUDIO ARTIST us Parmjit Meehan MD LAB BLOOD ORDERABLES Final Resul t [facility] Department [place] [address] * Basic metabolic panel (12/24/2023 9:58 PM STUDIO ARTIST) Sodium 138 135 - 145 mmol/L Potassium, pl 4.1 3.3 - 4.9 mmol/L [facility] Chloride 101 97 - 110 mmol/L [facility] CO2 26 22 - 32 mmol/L [facility] Anion gap 11 2 - 15 mmol/L [facility] BUN 16 6 - 25 mg/dL [facility] Creatinine 0.86 0.60 - 1.10 mg/dL [facility] Glucose 180 70 - 199 mg/dL [facility] Comment: Interpretive Data Fasting glucose >/= [...] 2022. Calcium 8.7 8.5 - 10.3 mg/dL [facility] Blood 12/24/2023 9:58 PM STUDIO ARTIST 12/24/2023 11:10 PM STUDIO ARTIST Narrative [facility] - 12/24/2023 11:38 PM STUDIO ARTIST Obtain POD 0 at 2200. Parmjit Meehan MD LAB BLOOD ORDERABLES Final Resul t Performing Organization Address City/[facility]/ZIP Co de Phone Number [facility] Department [place] [address] * (ABNORMAL) CBC without differential (12/24/2023 9:58 PM STUDIO ARTIST) WBC 17.3(H) 3.8 - 9.9 K/cumm Hgb 8.3(L) 11.9 - 15.5 g/dL [facility] Hct 27.3(L) 35.6 - 45.5 % [facility] Plt 336 150 - 400 K/cumm [facility] MPV 10.2 9.1 - 12.3 fL [facility] RBC 3.17(L) 3.90 - 5.20 M/cumm [facility] MCV 86.1 81.3 - 96.4 fL [facility] MCH 26.2(L) 27.1 - 33.3 pg [facility] MCHC 30.4(L) 32.3 - 35.7 g/dL [facility] RDW CV 17.8(H) 11.1 - 14.9 % [facility] RDW SD 56.6(H) 35.7 - 48.1 fL [facility] NRBC abs 0.00 0.00 - 0.01 K/cumm [facility] Blood 12/24/2023 9:58 PM STUDIO ARTIST 12/24/2023 11:09 PM STUDIO ARTIST Narrative [facility] - 12/24/2023 11:18 PM STUDIO ARTIST Obtain POD 0 at 2200. Parmjit Meehan MD LAB BLOOD ORDERABLES Final Resul t Performing Organization Address City/[facility]/ZIP Co de Phone Number [facility] Department [place] [address] * (ABNORMAL) POCT glucose (12/24/2023 8:41 PM STUDIO ARTIST) Glucose, POC 201(H) 70 - 199 mg/dL Comment:Glu2: RN/MD Notified Glucose comment 1 Glu2: RN/MD Notified [facility] Blood 12/24/2023 8:41 PM STUDIO ARTIST 12/24/2023 8:41 PM STUDIO ARTIST us Yo Perez MD LAB POCT ORDERABLES - DEVICE Final Result [facility] [place] [address] * POCT glucose (12/24/2023 6:04 PM STUDIO ARTIST) Pathologist [facility] Glucose, POC 189 70 - 199 mg/dL Blood 12/24/2023 6:04 PM STUDIO ARTIST 12/24/2023 6:04 PM STUDIO ARTIST Parmjit Meehan MD LAB POCT ORDERABLES - DEVICE Fin al Result Performing Organization Address City/[facility]/[place] [address] * (ABNORMAL) POC Blood Gas and Chemistries, Arterial - (12/24/2023 4:47 PM STUDIO ARTIST) [facility] pH, Art POC 7.40 7.35 - 7.45 pCO2, Art POC 38 35 - 45 mmHg [facility] pO2, Art POC 79(L) 83 - 108 mmHg [facility] Na, POC 134(L) 135 - 145 mmol/L [facility] K POC 3.4 3.3 - 4.9 mmol/L [facility] Comment: Interpretive Data Not all point of care methods assess for hemolysis. Confirm with instrument and retest K+ if not consistent with clinical signs and symptoms. Current Interpretive Data was last revised on 2023. Cl, POC 104 97 - 110 mmol/L [facility] Ionized Ca, POC 5.03 4.50 - 5.10 mg/dL [facility] Glucose, POC 180 70 - 199 mg/dL [facility] Lactate, POC 1.2 0.7 - 2.2 mmol/L [facility] SO2 (donna) arterial 96(H) 90 - 95 % [facility] Base excess, POC -1.1 mmol/L [facility] HCO3, Art POC 24 20 - 30 mmol/L [facility] Hct, POC 27.0(L) 36.3 - 45.3 % [facility] Total Hb, POC 9.0(L) 11.9 - 15.5 g/dL [facility] Blood 12/24/2023 4:47 PM STUDIO ARTIST 12/24/2023 4:47 PM STUDIO ARTIST Yo Perez MD LAB POCT ORDERABLES - DEVICE Final Result Performing Organization Address [facility]/ZIP Co de Phone Number [facility] Department [place] [address] * POCT glucose (12/24/2023 4:07 PM STUDIO ARTIST) Pathologist [facility] Glucose, POC 124 70 - 199 mg/dL Blood 12/24/2023 4:07 PM STUDIO ARTIST 12/24/2023 4:07 PM STUDIO ARTIST Parmjit Meehan MD LAB POCT ORDERABLES - DEVICE Fin al Result Performing Organization Address [facility]/ZIP Co de Phone Number [facility] Department [place] [address] * (ABNORMAL) POC Blood Gas and Chemistries, Arterial - (12/24/2023 3:22 PM STUDIO ARTIST) pH, Art POC 7.41 7.35 - 7.45 pCO2, Art POC 39 35 - 45 mmHg [facility] pO2, Art POC 191(H) 83 - 108 mmHg [facility] Na, POC 134(L) 135 - 145 mmol/L [facility] K POC 3.1(L) 3.3 - 4.9 mmol/L [facility] Comment: Interpretive Data Not all point of care methods assess for hemolysis. Confirm with instrument and retest K+ if not consistent with clinical signs and symptoms. Current Interpretive Data was last revised on 2023. Cl, POC 103 97 - 110 mmol/L [facility] Ionized Ca, POC 5.36(H) 4.50 - 5.10 mg/dL [facility] Glucose, POC 161 70 - 199 mg/dL [facility] Lactate, POC 1.2 0.7 - 2.2 mmol/L [facility] SO2 (donna) arterial 98(H) 90 - 95 % [facility] Base excess, POC 0.1 mmol/L [facility] HCO3, Art POC 25 20 - 30 mmol/L [facility] Hct, POC 25.0(L) 36.3 - 45.3 % [facility] Total Hb, POC 8.2(L) 11.9 - 15.5 g/dL [facility] Blood 12/24/2023 3:22 PM STUDIO ARTIST 12/24/2023 3:22 PM STUDIO ARTIST Parmjit Meehan MD LAB POCT ORDERABLES - DEVICE Fin al Result [facility] Department [place] [address] * Mycology (fungal) culture and stain Tissue Colon (12/24/2023 3:00 PM STUDIO ARTIST) Direct Specimen Exam Stain: No Fungal elements seen. Report Final Report: No growth of fungus [facility] Tissue (Colon) 12/24/2023 3: 00 PM STUDIO ARTIST 12/24/2023 4:57 PM STUDIO ARTIST Narrative [facility] - 01/21/2024 7:59 AM STUDIO ARTIST Left colon Testing performed by [facility] Microbiology Laboratory ([phone]). us Yo Perez MD LAB MICROBIOLOGY - GENERAL O RDERABLES Final Result [facility] Department [place] [address] * (ABNORMAL) Tissue aerobic and anaerobic culture and gram stain Tissue Colon (12/24/2023 3:00 PM STUDIO ARTIST) Direct Specimen Exam Stain: Few polymorphonuclear leukocytes [...] contact infectious diseases. Few Mixed microorganisms. (.) GO [facility] Organism ENTEROCOCCUS FAECIUM [facility] Organism KLEBSIELLA PNEUMONIAE [facility] Organism MIXED MICROORGANISMS. GO [facility] Tissue (Colon) 12/24/2023 3: 00 PM STUDIO ARTIST 12/24/2023 4:56 PM STUDIO ARTIST Narrative [facility] - 01/05/2024 3:05 PM STUDIO ARTIST Left colon Testing performed by [facility] Microbiology Laboratory ([phone]) Specimens submitted from normally sterile body sites [...] Resistant Klebsiella pneumoniae Doxycycline INTERPRETATION Susceptible Yo Perez MD LAB MICROBIOLOGY - GENERAL O RDERABLES Final Result [facility] Department [place] [address] * (ABNORMAL) POC Blood Gas and Chemistries, Arterial - (12/24/2023 1:47 PM STUDIO ARTIST) [facility] pH, Art POC 7.44 7.35 - 7.45 pCO2, Art POC 40 35 - 45 mmHg [facility] pO2, Art POC 156(H) 83 - 108 mmHg [facility] Na, POC 134(L) 135 - 145 mmol/L [facility] K POC 3.5 3.3 - 4.9 mmol/L [facility] Comment: Interpretive Data Not all point of care methods assess for hemolysis. Confirm with instrument and retest K+ if not consistent with clinical signs and symptoms. Current Interpretive Data was last revised on 2023. Cl, POC 101 97 - 110 mmol/L [facility] Ionized Ca, POC 4.75 4.50 - 5.10 mg/dL [facility] Glucose, POC 142 70 - 199 mg/dL [facility] Lactate, POC 0.9 0.7 - 2.2 mmol/L [facility] SO2 (donna) arterial 99(H) 90 - 95 % [facility] Base excess, POC 2.8 mmol/L [facility] HCO3, Art POC 27 20 - 30 mmol/L [facility] Hct, POC 28.0(L) 36.3 - 45.3 % [facility] Total Hb, POC 9.3(L) 11.9 - 15.5 g/dL [facility] Blood 12/24/2023 1:47 PM STUDIO ARTIST 12/24/2023 1:47 PM STUDIO ARTIST Parmjit Meehan MD LAB POCT ORDERABLES - DEVICE Fin al Result Performing Organization Address City/[facility]/ZIP Co de Phone Number [facility] [place] [address] * Type and screen (12/24/2023 11:13 AM STUDIO ARTIST) ABO Rh O Positive Maira, indirect Negative [facility] Blood 12/24/2023 11:1 3 AM STUDIO ARTIST 12/24/2023 11:21 AM STUDIO ARTIST Narrative [facility] - 12/24/2023 12:48 PM STUDIO ARTIST Has the patient had Daratumumab or Isatuximab in the past 6 months?->Unknown Chris Ricci NP LAB BLOOD BANK TEST ORDERA BLES Final Result Performing Organization Address [facility] Co de Phone Number [facility] Department [place] [address] * (ABNORMAL) POC Blood Gas and Chemistries, Venous - (12/24/2023 11:09 AM STUDIO ARTIST) pH, Geovani POC 7.48(H) 7.32 - 7.43 pCO2, geovani POC 41 40 - 50 mmHg [facility] pO2, geovani POC 48 mmHg [facility] Na, POC 136 135 - 145 mmol/L [facility] K POC 3.4 3.3 - 4.9 mmol/L [facility] Comment: Interpretive Data Not all point of care methods assess for hemolysis. Confirm with instrument and retest K+ if not consistent with clinical signs and symptoms. Current Interpretive Data was last revised on 2023. Cl, POC 101 97 - 110 mmol/L [facility] Ionized Ca, POC 4.66 4.50 - 5.10 mg/dL [facility] Glucose, POC 113 70 - 199 mg/dL [facility] Lactate, POC 0.9 0.7 - 2.2 mmol/L [facility] O2 Sat, Geovani POC (Donna) 76 % [facility] Base excess, POC 6.4 mmol/L [facility] HCO3, Geovani POC 30 20 - 30 mmol/L [facility] Hct, POC 26.0(L) 36.3 - 45.3 % [facility] Total Hb, POC 8.8(L) 11.9 - 15.5 g/dL [facility] Blood 12/24/2023 11:0 9 AM STUDIO ARTIST 12/24/2023 11:09 AM STUDIO ARTIST us Parmjit Meehan MD LAB POCT ORDERABLES - DEVICE Fin al Result [facility] Department [place] [address] * eGFR (12/22/2023 9:36 PM STUDIO ARTIST) eGFR 84 >=60 mL/min/1. 73 m2 Comment: [...] last reviewed 2020. Blood 12/22/2023 9:36 PM STUDIO ARTIST 12/22/2023 9:52 PM STUDIO ARTIST us Parmjti Meehan MD LAB BLOOD ORDERABLES Final Resul t [facility] Department [place] [address] * (ABNORMAL) Differential, auto (12/22/2023 9:36 PM STUDIO ARTIST) Neutrophil abs 9.3(H) 1.5 - 6.5 K/cumm Imm gran abs 0.1 0.0 - 0.1 K/cumm [facility] Lymphocyte abs 2.2 0.8 - 3.3 K/cumm [facility] Monocyte abs 1.3(H) 0.2 - 0.8 K/cumm [facility] Eosinophil abs 0.2 0.0 - 0.5 K/cumm [facility] Basophil abs 0.1 0.0 - 0.1 K/cumm [facility] Neutrophil pct 71.3 % [facility] Comment: Interpretive Data Percent cell count reference ranges are not reported, since discordance with absolute values may lead to misinterpretation of CBC data. Current Interpretive Data was last revised on 2017. Imm gran pct 0.5 % [facility] Comment: Interpretive Data Percent cell count reference ranges are not reported, since discordance with absolute values may lead to misinterpretation of CBC data. Current Interpretive Data was last revised on 2017. Lymphocyte pct 16.6 % [facility] Comment: Interpretive Data Percent cell count reference ranges are not reported, since discordance with absolute values may lead to misinterpretation of CBC data. Current Interpretive Data was last revised on 2017. Monocyte pct 9.6 % [facility] Comment: Interpretive Data Percent cell count reference ranges are not reported, since discordance with absolute values may lead to misinterpretation of CBC data. Current Interpretive Data was last revised on 2017. Eosinophil pct 1.5 % [facility] Comment: Interpretive Data Percent cell count reference ranges are not reported, since discordance with absolute values may lead to misinterpretation of CBC data. Current Interpretive Data was last revised on 2017. Basophil pct 0.5 % [facility] Comment: Interpretive Data Percent cell count reference ranges are not reported, since discordance with absolute values may lead to misinterpretation of CBC data. Current Interpretive Data was last revised on 2017. Blood 12/22/2023 9:36 PM STUDIO ARTIST 12/22/2023 10:01 PM STUDIO ARTIST Parmjit Meehan MD LAB BLOOD ORDERABLES Final Resul t Performing Organization Address City/[facility] Co de Phone Number [facility] Department [place] [address] * Type and screen (12/22/2023 9:36 PM STUDIO ARTIST) Maira, indirect Negative ABO Rh O Positive [facility] Blood 12/22/2023 9:36 PM STUDIO ARTIST 12/22/2023 9:47 PM STUDIO ARTIST Narrative [facility] - 12/22/2023 10:45 PM STUDIO ARTIST Has the patient had Daratumumab or Isatuximab in the past 6 months?->Unknown Parmjit Meehan MD LAB BLOOD BANK TEST ORDERABLES F inal Result Performing Organization Address [facility] Co de Phone Number [facility] Department [place] [address] * (ABNORMAL) Protime-INR (12/22/2023 9:36 PM STUDIO ARTIST) PT 15.6(H) 9.7 - 13.0 sec INR 1.43(H) 0.90 - 1.20 [facility] Comment: Interpretive data Oral anticoagulant therapeutic ranges: Venous thromboembolism prophylaxis or treatment: 2.0-3.0 CARDIOLOGY Standard range: 2.0-3.0 High-intensity range: 2.5-3.5 Refer to indication-specific guidelines for appropriate target ranges for prosthetic heart valve replacement. Current interpretive data was last revised on 2019. Blood 12/22/2023 9:36 PM STUDIO ARTIST 12/22/2023 9:50 PM STUDIO ARTIST Parmjit Meehan MD LAB BLOOD ORDERABLES Final Resul t [facility] Department [place] [address] * (ABNORMAL) Renal function panel (12/22/2023 9:36 PM STUDIO ARTIST) Pathologist [facility] Sodium 133(L) 135 - 145 mmol/L Potassium, pl 4.7 3.3 - 4.9 mmol/L [facility] Chloride 98 97 - 110 mmol/L [facility] CO2 24 22 - 32 mmol/L [facility] Anion gap 11 2 - 15 mmol/L [facility] BUN 22 6 - 25 mg/dL [facility] Creatinine 0.78 0.60 - 1.10 mg/dL [facility] Glucose 174 70 - 199 mg/dL [facility] Comment: Interpretive Data Fasting glucose >/= [...] 2022. Calcium 8.7 8.5 - 10.3 mg/dL [facility] Phosphorus, pl 3.6 2.3 - 4.5 mg/dL [facility] Albumin 2.9(L) 3.5 - 5.0 g/dL [facility] Blood 12/22/2023 9:36 PM STUDIO ARTIST 12/22/2023 9:52 PM STUDIO ARTIST Parmjit Meehan MD LAB BLOOD ORDERABLES Final Resul t [facility] [place] [address] * Magnesium (12/22/2023 9:36 PM STUDIO ARTIST) [facility] Magnesium 1.8 1.4 - 2.5 mg/dL Blood 12/22/2023 9:36 PM STUDIO ARTIST 12/22/2023 9:52 PM STUDIO ARTIST Parmjit Meehan MD LAB BLOOD ORDERABLES Final Resul t Performing Organization Address City/[facility]/ZIP Nd de Phone Number [facility] [place] [address] * (ABNORMAL) CBC with auto differential (12/22/2023 9:36 PM STUDIO ARTIST) [facility] WBC 13.1(H) 3.8 - 9.9 K/cumm Hgb 8.5(L) 11.9 - 15.5 g/dL [facility] Hct 27.2(L) 35.6 - 45.5 % [facility] Plt 395 150 - 400 K/cumm [facility] MPV 9.4 9.1 - 12.3 fL [facility] RBC 3.20(L) 3.90 - 5.20 M/cumm [facility] MCV 85.0 81.3 - 96.4 fL [facility] MCH 26.6(L) 27.1 - 33.3 pg [facility] MCHC 31.3(L) 32.3 - 35.7 g/dL [facility] RDW CV 18.6(H) 11.1 - 14.9 % [facility] RDW SD 57.4(H) 35.7 - 48.1 fL [facility] NRBC abs 0.00 0.00 - 0.01 K/cumm [facility] Blood 12/22/2023 9:36 PM STUDIO ARTIST 12/22/2023 10:01 PM STUDIO ARTIST Parmjit Meehan MD LAB BLOOD ORDERABLES Final Resul t [facility] [place] [address] * Infection Prevention Angie auris PCR, surveillance Axilla/Groin (12/21/2023 9:32 PM STUDIO ARTIST) Pathologist [facility] Angie auris DNA Not Detected Not Detected [facility] Comment: Interpretive Data Testing performed by [facility] Molecular Infectious Disease Laboratory using the [employer] MDX Angie auris assay. ??This assay detects DNA from Angie auris using Real-Time PCR. ??This assay is laboratory developed and is not cleared by the [place] Food and Drug Administration. ??The performance characteristics have been verified by the [facility] Molecular Infectious Disease Laboratory. Interpretive data was last reviewed on 06/11/2023 Axilla/Groin 12/21/2023 9:32 PM STUDIO ARTIST 12/21/2023 10:06 PM STUDIO ARTIST Familia So MD LAB MICROBIOLOGY - GENERAL OR DERABLES Final Result GO [facility] [place] [address] [facility] * eGFR (12/19/2023 10:29 PM CDT) Pathologist [facility] eGFR >90 >=60 mL/min/1. 73 m2 [...] Radford MD LAB BLOOD ORDERABLES Final Result [facility] Department [place] [address] * (ABNORMAL) Differential, auto (12/19/2023 10:29 PM CDT) Pathologist [facility] Neutrophil abs 6.7(H) 1.5 - 6.5 K/cumm Imm gran abs 0.1 0.0 - 0.1 K/cumm [facility] Lymphocyte abs 2.2 0.8 - 3.3 K/cumm [facility] Monocyte abs 1.1(H) 0.2 - 0.8 K/cumm [facility] Eosinophil abs 0.3 0.0 - 0.5 K/cumm [facility] Basophil abs 0.1 0.0 - 0.1 K/cumm [facility] Neutrophil pct 64.7 % [facility] Comment: Interpretive Data Percent cell count reference ranges are not reported, since discordance with absolute values may lead to misinterpretation of CBC data. Current Interpretive Data was last revised on 2017. Imm gran pct 0.5 % [facility] Comment: Interpretive Data Percent cell count reference ranges are not reported, since discordance with absolute values may lead to misinterpretation of CBC data. Current Interpretive Data was last revised on 2017. Lymphocyte pct 20.7 % [facility] Comment: Interpretive Data Percent cell count reference ranges are not reported, since discordance with absolute values may lead to misinterpretation of CBC data. Current Interpretive Data was last revised on 2017. Monocyte pct 10.9 % [facility] Comment: Interpretive Data Percent cell count reference ranges are not reported, since discordance with absolute values may lead to misinterpretation of CBC data. Current Interpretive Data was last revised on 2017. Eosinophil pct 2.6 % [facility] Comment: Interpretive Data Percent cell count reference ranges are not reported, since discordance with absolute values may lead to misinterpretation of CBC data. Current Interpretive Data was last revised on 2017. Basophil pct 0.6 % [facility] Comment: Interpretive Data Percent cell count reference ranges are not reported, since discordance with absolute values may lead to misinterpretation of CBC data. Current Interpretive Data was last revised on 2017. Blood 12/19/2023 10:2 9 PM CDT 12/19/2023 11:03 PM CDT Álvaro Radford MD LAB BLOOD ORDERABLES Final Result Performing Organization Address City/[facility]/ZIP Co de Phone Number [facility] [place] [place] [address] * Magnesium (12/19/2023 10:29 PM CDT) Magnesium 1.8 1.4 - 2.5 mg/dL Blood 12/19/2023 10:2 9 PM CDT 12/19/2023 11:03 PM CDT Álvaro Radford MD LAB BLOOD ORDERABLES Final Result [facility] [place] [address] * (ABNORMAL) Renal function panel (12/19/2023 10:29 PM CDT) Sodium 135 135 - 145 mmol/L Potassium, pl 4.6 3.3 - 4.9 mmol/L [facility] Chloride 101 97 - 110 mmol/L [facility] CO2 26 22 - 32 mmol/L [facility] Anion gap 8 2 - 15 mmol/L [facility] BUN 22 6 - 25 mg/dL [facility] Creatinine 0.73 0.60 - 1.10 mg/dL [facility] Glucose 185 70 - 199 mg/dL [facility] Comment: Interpretive Data Fasting glucose >/= [...] 2022. Calcium 8.6 8.5 - 10.3 mg/dL [facility] Phosphorus, pl 3.3 2.3 - 4.5 mg/dL [facility] Albumin 2.6(L) 3.5 - 5.0 g/dL [facility] Blood 12/19/2023 10:2 9 PM CDT 12/19/2023 11:03 PM CDT us Álvaro Radford MD LAB BLOOD ORDERABLES Final Result Performing Organization Address City/State/[facility] Co de Phone Number [facility] [place] [address] * (ABNORMAL) CBC with auto differential (12/19/2023 10:29 PM CDT) [facility] WBC 10.4(H) 3.8 - 9.9 K/cumm Hgb 7.7(L) 11.9 - 15.5 g/dL [facility] Hct 25.3(L) 35.6 - 45.5 % [facility] Plt 337 150 - 400 K/cumm [facility] MPV 9.8 9.1 - 12.3 fL [facility] RBC 2.93(L) 3.90 - 5.20 M/cumm [facility] MCV 86.3 81.3 - 96.4 fL [facility] MCH 26.3(L) 27.1 - 33.3 pg [facility] MCHC 30.4(L) 32.3 - 35.7 g/dL [facility] RDW CV 18.9(H) 11.1 - 14.9 % [facility] RDW SD 60.0(H) 35.7 - 48.1 fL [facility] NRBC abs 0.00 0.00 - 0.01 K/cumm [facility] Blood 12/19/2023 10:2 9 PM CDT 12/19/2023 11:03 PM CDT Álvaro Radford MD LAB BLOOD ORDERABLES Final Result Performing Organization Address City/[facility]/ZIP Co de Phone Number [facility] [place] [address] * Type and screen (12/19/2023 10:29 PM CDT) ABO Rh O Positive Maira, indirect Negative [facility] Blood 12/19/2023 10:2 9 PM CDT 12/19/2023 11:07 PM CDT Narrative [facility] - 12/20/2023 12:23 AM CDT Has the patient had Daratumumab or Isatuximab in the past 6 months?->Unknown Álvaro Radford MD LAB BLOOD BANK TEST ORDERAB LES Final Result [facility] [place] [address] * (ABNORMAL) Differential, auto (12/17/2023 8:27 PM CDT) Neutrophil abs 8.0(H) 1.5 - 6.5 K/cumm Imm gran abs 0.0 0.0 - 0.1 K/cumm [facility] Lymphocyte abs 1.7 0.8 - 3.3 K/cumm [facility] Monocyte abs 1.0(H) 0.2 - 0.8 K/cumm [facility] Eosinophil abs 0.1 0.0 - 0.5 K/cumm [facility] Basophil abs 0.1 0.0 - 0.1 K/cumm [facility] Neutrophil pct 72.9 % [facility] Comment: Interpretive Data Percent cell count reference ranges are not reported, since discordance with absolute values may lead to misinterpretation of CBC data. Current Interpretive Data was last revised on 2017. Imm gran pct 0.4 % [facility] Comment: Interpretive Data Percent cell count reference ranges are not reported, since discordance with absolute values may lead to misinterpretation of CBC data. Current Interpretive Data was last revised on 2017. Lymphocyte pct 15.5 % [facility] Comment: Interpretive Data Percent cell count reference ranges are not reported, since discordance with absolute values may lead to misinterpretation of CBC data. Current Interpretive Data was last revised on 2017. Monocyte pct 9.4 % [facility] Comment: Interpretive Data Percent cell count reference ranges are not reported, since discordance with absolute values may lead to misinterpretation of CBC data. Current Interpretive Data was last revised on 2017. Eosinophil pct 1.3 % [facility] Comment: Interpretive Data Percent cell count reference ranges are not reported, since discordance with absolute values may lead to misinterpretation of CBC data. Current Interpretive Data was last revised on 2017. Basophil pct 0.5 % [facility] Comment: Interpretive Data Percent cell count reference ranges are not reported, since discordance with absolute values may lead to misinterpretation of CBC data. Current Interpretive Data was last revised on 2017. Blood 12/17/2023 8:27 PM CDT 12/17/2023 9:02 PM CDT us Parmjit Meehan MD LAB BLOOD ORDERABLES Final Resul t [facility] [place] [address] * (ABNORMAL) CBC with auto differential (12/17/2023 8:27 PM CDT) [facility] WBC 11.0(H) 3.8 - 9.9 K/cumm Hgb 8.1(L) 11.9 - 15.5 g/dL [facility] Hct 27.4(L) 35.6 - 45.5 % [facility] Plt 334 150 - 400 K/cumm [facility] MPV 10.7 9.1 - 12.3 fL [facility] RBC 3.20(L) 3.90 - 5.20 M/cumm [facility] MCV 85.6 81.3 - 96.4 fL [facility] MCH 25.3(L) 27.1 - 33.3 pg [facility] MCHC 29.6(L) 32.3 - 35.7 g/dL [facility] RDW CV 19.2(H) 11.1 - 14.9 % [facility] RDW SD 60.4(H) 35.7 - 48.1 fL [facility] NRBC abs 0.00 0.00 - 0.01 K/cumm [facility] Blood 12/17/2023 8:27 PM CDT 12/17/2023 9:02 PM CDT us Parmjit Meehan MD LAB BLOOD ORDERABLES Final Resul t [facility] [place] [address] * eGFR (12/16/2023 10:51 PM CDT) [facility] eGFR 87 >=60 mL/min/1. 73 m2 Comment: [...] Radford MD LAB BLOOD ORDERABLES Final Result [facility] [place] [address] * (ABNORMAL) Differential, auto (12/16/2023 10:51 PM CDT) Neutrophil abs 7.1(H) 1.5 - 6.5 K/cumm Imm gran abs 0.1 0.0 - 0.1 K/cumm [facility] Lymphocyte abs 2.3 0.8 - 3.3 K/cumm [facility] Monocyte abs 1.1(H) 0.2 - 0.8 K/cumm [facility] Eosinophil abs 0.3 0.0 - 0.5 K/cumm [facility] Basophil abs 0.1 0.0 - 0.1 K/cumm [facility] Neutrophil pct 64.9 % [facility] Comment: Interpretive Data Percent cell count reference ranges are not reported, since discordance with absolute values may lead to misinterpretation of CBC data. Current Interpretive Data was last revised on 2017. Imm gran pct 0.6 % [facility] Comment: Interpretive Data Percent cell count reference ranges are not reported, since discordance with absolute values may lead to misinterpretation of CBC data. Current Interpretive Data was last revised on 2017. Lymphocyte pct 21.5 % [facility] Comment: Interpretive Data Percent cell count reference ranges are not reported, since discordance with absolute values may lead to misinterpretation of CBC data. Current Interpretive Data was last revised on 2017. Monocyte pct 9.9 % [facility] Comment: Interpretive Data Percent cell count reference ranges are not reported, since discordance with absolute values may lead to misinterpretation of CBC data. Current Interpretive Data was last revised on 2017. Eosinophil pct 2.5 % [facility] Comment: Interpretive Data Percent cell count reference ranges are not reported, since discordance with absolute values may lead to misinterpretation of CBC data. Current Interpretive Data was last revised on 2017. Basophil pct 0.6 % [facility] Comment: Interpretive Data Percent cell count reference ranges are not reported, since discordance with absolute values may lead to misinterpretation of CBC data. Current Interpretive Data was last revised on 2017. Blood 12/16/2023 10:5 1 PM CDT 12/16/2023 11:13 PM CDT us Álvaro Radford MD LAB BLOOD ORDERABLES Final Result Performing Organization Address City/State/[facility] Co de Phone Number [facility] [place] [address] * Magnesium (12/16/2023 10:51 PM CDT) Magnesium 1.7 1.4 - 2.5 mg/dL Blood 12/16/2023 10:5 1 PM CDT 12/16/2023 11:11 PM CDT Álvaro Radford MD LAB BLOOD ORDERABLES Final Result Performing Organization Address City/[facility]/ZIP Co de Phone Number [facility] [place] [address] * (ABNORMAL) Renal function panel (12/16/2023 10:51 PM CDT) Sodium 135 135 - 145 mmol/L Potassium, pl 4.6 3.3 - 4.9 mmol/L [facility] Chloride 101 97 - 110 mmol/L [facility] CO2 28 22 - 32 mmol/L [facility] Anion gap 6 2 - 15 mmol/L [facility] BUN 21 6 - 25 mg/dL [facility] Creatinine 0.76 0.60 - 1.10 mg/dL [facility] Glucose 139 70 - 199 mg/dL [facility] Comment: Interpretive Data Fasting glucose >/= [...] 2022. Calcium 8.4(L) 8.5 - 10.3 mg/dL [facility] Phosphorus, pl 3.3 2.3 - 4.5 mg/dL [facility] Albumin 2.8(L) 3.5 - 5.0 g/dL [facility] Blood 12/16/2023 10:5 1 PM CDT 12/16/2023 11:11 PM CDT Álvaro Radfodr MD LAB BLOOD ORDERABLES Final Result Performing Organization Address City/[facility]/ZIP Co de Phone Number [facility] [place] [address] * (ABNORMAL) CBC with auto differential (12/16/2023 10:51 PM CDT) WBC 10.9(H) 3.8 - 9.9 K/cumm Hgb 7.7(L) 11.9 - 15.5 g/dL [facility] Hct 25.8(L) 35.6 - 45.5 % [facility] Plt 347 150 - 400 K/cumm [facility] MPV 10.1 9.1 - 12.3 fL [facility] RBC 3.00(L) 3.90 - 5.20 M/cumm [facility] MCV 86.0 81.3 - 96.4 fL [facility] MCH 25.7(L) 27.1 - 33.3 pg [facility] MCHC 29.8(L) 32.3 - 35.7 g/dL [facility] RDW CV 19.5(H) 11.1 - 14.9 % [facility] RDW SD 61.1(H) 35.7 - 48.1 fL [facility] NRBC abs 0.00 0.00 - 0.01 K/cumm [facility] Blood 12/16/2023 10:5 1 PM CDT 12/16/2023 11:13 PM CDT Álvaro Radford MD LAB BLOOD ORDERABLES Final Result Performing Organization Address [facility] de Phone Number [facility] [place] [address] * Type and screen (12/16/2023 10:51 PM CDT) ABO Rh O Positive Maira, indirect Negative [facility] Blood 12/16/2023 10:5 1 PM CDT 12/16/2023 11:07 PM CDT Narrative [facility] - 12/17/2023 12:31 AM CDT Has the patient had Daratumumab or Isatuximab in the past 6 months?->Unknown Álvaro Radford MD LAB BLOOD BANK TEST ORDERAB LES Final Result Performing Organization Address [facility] Co de Phone Number [facility] [place] [address] * POCT glucose (12/16/2023 8:38 PM CDT) Glucose, POC 192 70 - 199 mg/dL Blood 12/16/2023 8:38 PM CDT 12/16/2023 8:38 PM CDT Parmjit Meehan MD LAB POCT ORDERABLES - DEVICE Fin al Result Performing Organization Address [facility] [place] [address] * POCT glucose (12/16/2023 4:34 PM CDT) Glucose, POC 164 70 - 199 mg/dL Blood 12/16/2023 4:34 PM CDT 12/16/2023 4:34 PM CDT Parmjit Meehan MD LAB POCT ORDERABLES - DEVICE Fin al Result Performing Organization Address [facility] [place] [address] * POCT glucose (12/16/2023 11:53 AM CDT) Glucose, POC 188 70 - 199 mg/dL Blood 12/16/2023 11:5 3 AM CDT 12/16/2023 11:53 AM CDT Parmjit Meehan MD LAB POCT ORDERABLES - DEVICE Fin al Result Performing Organization Address City/[facility] Co de Phone Number [facility] [place] [address] * POCT glucose (12/16/2023 8:13 AM CDT) Glucose, POC 127 70 - 199 mg/dL Blood 12/16/2023 8:13 AM CDT 12/16/2023 8:13 AM CDT us Parmjit Meehan MD LAB POCT ORDERABLES - DEVICE Fin al Result Performing Organization Address [facility] Co de Phone Number [facility] [place] [address] * Infection Prevention Angie auris PCR, surveillance Axilla/Groin (12/15/2023 8:46 PM CDT) Pathologist [facility] Angie auris DNA Not Detected Not Detected [facility] Comment: Interpretive Data Testing performed by [facility] Disease [facility] using the [employer] Liaison MDX Angie auris assay. ??This assay detects DNA from Angie auris using Real-Time PCR. ??This assay is laboratory developed and is not cleared by the [facility] Food and Drug Administration. ??The performance characteristics have been verified by the [facility]. Interpretive data was last reviewed on 06/11/2023 Axilla/Groin 12/15/2023 8:46 PM CDT 12/15/2023 8:57 PM CDT us Familia So MD LAB MICROBIOLOGY - GENERAL OR DERABLES Final Result Performing Organization Address City/[facility] Co de Phone Number [facility] [place] [employer] [address] [facility] * (ABNORMAL) POCT glucose (12/15/2023 8:03 PM CDT) Glucose, POC 210(H) 70 - 199 mg/dL Blood 12/15/2023 8:03 PM CDT 12/15/2023 8:03 PM CDT us Álvaro Radford MD LAB POCT ORDERABLES - DEVIC E Final Result Performing Organization Address [facility] Co de Phone Number [facility] [place] [address] * POCT glucose (12/15/2023 5:20 PM CDT) Glucose, POC 172 70 - 199 mg/dL Blood 12/15/2023 5:20 PM CDT 12/15/2023 5:20 PM CDT Álvaro Radford MD LAB POCT ORDERABLES - DEVIC E Final Result Performing Organization Address [facility] [place] [address] * POCT glucose (12/15/2023 12:12 PM CDT) Glucose, POC 169 70 - 199 mg/dL Blood 12/15/2023 12:1 2 PM CDT 12/15/2023 12:12 PM CDT Álvaro Radford MD LAB POCT ORDERABLES - DEVIC E Final Result Performing Organization Address [facility] Co de Phone Number [facility] [place] [address] * POCT glucose (12/15/2023 8:11 AM CDT) Glucose, POC 129 70 - 199 mg/dL Blood 12/15/2023 8:11 AM CDT 12/15/2023 8:11 AM CDT us Álvaro Radford MD LAB POCT ORDERABLES - DEVIC E Final Result Performing Organization Address City/[facility] Co de Phone Number [facility] [place] [address] * POCT glucose (12/14/2023 8:37 PM CDT) Glucose, POC 124 70 - 199 mg/dL Blood 12/14/2023 8:37 PM CDT 12/14/2023 8:37 PM CDT Álvaro Radford MD LAB POCT ORDERABLES - DEVIC E Final Result Performing Organization Address [facility] Co de Phone Number [facility] [place] [address] * (ABNORMAL) POCT glucose (12/14/2023 5:32 PM CDT) Glucose, POC 214(H) 70 - 199 mg/dL Blood 12/14/2023 5:32 PM CDT 12/14/2023 5:32 PM CDT Álvaro Radford MD LAB POCT ORDERABLES - DEVIC E Final Result Performing Organization Address [facility] de Phone Number [facility] [place] [address] * POCT glucose (12/14/2023 11:23 AM CDT) Glucose, POC 185 70 - 199 mg/dL Blood 12/14/2023 11:2 3 AM CDT 12/14/2023 11:23 AM CDT Álvaro Radford MD LAB POCT ORDERABLES - DEVIC E Final Result Performing Organization Address [facility] de Phone Number [facility] [place] [address] * POCT glucose (12/14/2023 7:47 AM CDT) Glucose, POC 128 70 - 199 mg/dL Blood 12/14/2023 7:47 AM CDT 12/14/2023 7:47 AM CDT us Álvaro Radford MD LAB POCT ORDERABLES - DEVIC E Final Result Performing Organization Address [facility] Co de Phone Number [facility] [place] [address] * eGFR (12/13/2023 9:51 PM CDT) eGFR [...] BLOOD ORDERABLES Final Result Performing Organization Address City/[facility] Co de Phone Number [facility] Department [place] [address] * Differential, auto (12/13/2023 9:51 PM CDT) Neutrophil abs 5.2 1.5 - 6.5 K/cumm Imm gran abs 0.0 0.0 - 0.1 K/cumm [facility] Lymphocyte abs 2.4 0.8 - 3.3 K/cumm [facility] Monocyte abs 0.8 0.2 - 0.8 K/cumm [facility] Eosinophil abs 0.2 0.0 - 0.5 K/cumm [facility] Basophil abs 0.1 0.0 - 0.1 K/cumm [facility] Neutrophil pct 59.8 % [facility] Comment: Interpretive Data Percent cell count reference ranges are not reported, since discordance with absolute values may lead to misinterpretation of CBC data. Current Interpretive Data was last revised on 2017. Imm gran pct 0.2 % [facility] Comment: Interpretive Data Percent cell count reference ranges are not reported, since discordance with absolute values may lead to misinterpretation of CBC data. Current Interpretive Data was last revised on 2017. Lymphocyte pct 27.8 % [facility] Comment: Interpretive Data Percent cell count reference ranges are not reported, since discordance with absolute values may lead to misinterpretation of CBC data. Current Interpretive Data was last revised on 2017. Monocyte pct 8.8 % [facility] Comment: Interpretive Data Percent cell count reference ranges are not reported, since discordance with absolute values may lead to misinterpretation of CBC data. Current Interpretive Data was last revised on 2017. Eosinophil pct 2.8 % [facility] Comment: Interpretive Data Percent cell count reference ranges are not reported, since discordance with absolute values may lead to misinterpretation of CBC data. Current Interpretive Data was last revised on 2017. Basophil pct 0.6 % [facility] Comment: Interpretive Data Percent cell count reference ranges are not reported, since discordance with absolute values may lead to misinterpretation of CBC data. Current Interpretive Data was last revised on 2017. Blood 12/13/2023 9:51 PM CDT 12/13/2023 10:19 PM CDT Álvaro Radford MD LAB BLOOD ORDERABLES Final Result [facility] [place] [address] * (ABNORMAL) Renal function panel (12/13/2023 9:51 PM CDT) Pathologist [facility] Sodium 137 135 - 145 mmol/L Potassium, pl 4.5 3.3 - 4.9 mmol/L [facility] Chloride 103 97 - 110 mmol/L [facility] CO2 26 22 - 32 mmol/L [facility] Anion gap 8 2 - 15 mmol/L [facility] BUN 16 6 - 25 mg/dL [facility] Creatinine 0.78 0.60 - 1.10 mg/dL [facility] Glucose 127 70 - 199 mg/dL [facility] Comment: Interpretive Data Fasting glucose >/= [...] 2022. Calcium 8.4(L) 8.5 - 10.3 mg/dL [facility] Phosphorus, pl 3.0 2.3 - 4.5 mg/dL [facility] Albumin 2.5(L) 3.5 - 5.0 g/dL [facility] Blood 12/13/2023 9:51 PM CDT 12/13/2023 10:18 PM CDT Álvaro Radford MD LAB BLOOD ORDERABLES Final Result [facility] [place] [address] * Magnesium (12/13/2023 9:51 PM CDT) [facility] Magnesium 2.0 1.4 - 2.5 mg/dL Blood 12/13/2023 9:51 PM CDT 12/13/2023 10:18 PM CDT Álvaro Radford MD LAB BLOOD ORDERABLES Final Result Performing Organization Address City/[facility]/ZIP Co de Phone Number [facility] [place] [address] * (ABNORMAL) CBC with auto differential (12/13/2023 9:51 PM CDT) [facility] WBC 8.7 3.8 - 9.9 K/cumm Hgb 7.7(L) 11.9 - 15.5 g/dL [facility] Hct 25.4(L) 35.6 - 45.5 % [facility] Plt 354 150 - 400 K/cumm [facility] MPV 10.4 9.1 - 12.3 fL [facility] RBC 2.93(L) 3.90 - 5.20 M/cumm [facility] MCV 86.7 81.3 - 96.4 fL [facility] MCH 26.3(L) 27.1 - 33.3 pg [facility] MCHC 30.3(L) 32.3 - 35.7 g/dL [facility] RDW CV 19.2(H) 11.1 - 14.9 % [facility] RDW SD 60.9(H) 35.7 - 48.1 fL [facility] NRBC abs 0.00 0.00 - 0.01 K/cumm [facility] Blood 12/13/2023 9:51 PM CDT 12/13/2023 10:19 PM CDT Álvaro Radford MD LAB BLOOD ORDERABLES Final Result Performing Organization Address City/[facility] Co de Phone Number [facility] Department [place] [address] * Type and screen (12/13/2023 9:51 PM CDT) Maira, indirect Negative ABO Rh O Positive [facility] Blood 12/13/2023 9:51 PM CDT 12/13/2023 10:18 PM CDT Narrative [facility] - 12/13/2023 11:24 PM CDT Has the patient had Daratumumab or Isatuximab in the past 6 months?->Unknown Álvaro Radford MD LAB BLOOD BANK TEST ORDERAB LES Final Result Performing Organization Address [facility] Co de Phone Number [facility] [place] [address] * POCT glucose (12/13/2023 8:24 PM CDT) Glucose, POC 163 70 - 199 mg/dL Blood 12/13/2023 8:24 PM CDT 12/13/2023 8:24 PM CDT Álvaro Radford MD LAB POCT ORDERABLES - DEVIC E Final Result Performing Organization Address City/[facility]/ZIP Co de Phone Number [facility] [place] [address] * POCT glucose (12/13/2023 4:31 PM CDT) Glucose, POC 128 70 - 199 mg/dL Blood 12/13/2023 4:31 PM CDT 12/13/2023 4:31 PM CDT Álvaro Radford MD LAB POCT ORDERABLES - DEVIC E Final Result Performing Organization Address [facility] Co [place] [address] * (ABNORMAL) POCT glucose (12/13/2023 11:07 AM CDT) Glucose, POC 213(H) 70 - 199 mg/dL Blood 12/13/2023 11:0 7 AM CDT 12/13/2023 11:07 AM CDT Álvaro Radford MD LAB POCT ORDERABLES - DEVIC E Final Result Performing Organization Address City/[facility]/[place] [address] * POCT glucose (12/13/2023 7:48 AM CDT) Glucose, POC 121 70 - 199 mg/dL Blood 12/13/2023 7:48 AM CDT 12/13/2023 7:48 AM CDT Álvaro Radford MD LAB POCT ORDERABLES - DEVIC E Final Result Performing Organization Address City/[facility]/[place] [address] * POCT glucose (12/12/2023 7:59 PM CDT) Glucose, POC 149 70 - 199 mg/dL Blood 12/12/2023 7:59 PM CDT 12/12/2023 7:59 PM CDT us Álvaro Radford MD LAB POCT ORDERABLES - DEVIC E Final Result [facility] [place] [address] * POCT glucose (12/12/2023 5:09 PM CDT) Glucose, POC 181 70 - 199 mg/dL Blood 12/12/2023 5:09 PM CDT 12/12/2023 5:09 PM CDT us Álvaro Radford MD LAB POCT ORDERABLES - DEVIC E Final Result Performing Organization Address City/[facility] Co de Phone Number [facility] [place] [address] * (ABNORMAL) POCT glucose (12/12/2023 11:19 AM CDT) Glucose, POC 206(H) 70 - 199 mg/dL Comment:Glu2: RN/MD Notified Glucose comment 1 Glu2: RN/MD Notified [facility] Blood 12/12/2023 11:1 9 AM CDT 12/12/2023 11:19 AM CDT us Álvaro Radford MD LAB POCT ORDERABLES - DEVIC E Final Result Performing Organization Address [facility] Co de Phone Number [facility] [place] [address] * POCT glucose (12/12/2023 7:24 AM CDT) Glucose, POC 114 70 - 199 mg/dL Blood 12/12/2023 7:24 AM CDT 12/12/2023 7:24 AM CDT us Álvaro Radford MD LAB POCT ORDERABLES - DEVIC E Final Result Performing Organization Address City/[facility] [place] [address] * (ABNORMAL) Hepatic function panel (12/11/2023 10:15 PM CDT) Bilirubin, total <0.2 0.1 - 1.2 mg/dL Bilirubin, direct <0.2 0.1 - 0.3 mg/dL [facility] Protein, pl 6.8 6.5 - 8.5 g/dL [facility] Albumin 2.8(L) 3.5 - 5.0 g/dL [facility] Alk phos 83 40 - 130 Units/L [facility] ALT 11 7 - 45 Units/L [facility] AST 25 10 - 45 Units/L [facility] Blood 12/11/2023 10:1 5 PM CDT 12/11/2023 11:02 PM CDT us Álvaro Radford MD LAB BLOOD ORDERABLES Final Result [facility] [place] [address] * eGFR (12/11/2023 10:15 PM CDT) eGFR [...] Radford MD LAB BLOOD ORDERABLES Final Result [facility] [place] [address] * Differential, auto (12/11/2023 10:15 PM CDT) Neutrophil abs 5.0 1.5 - 6.5 K/cumm Imm gran abs 0.0 0.0 - 0.1 K/cumm [facility] Lymphocyte abs 2.1 0.8 - 3.3 K/cumm [facility] Monocyte abs 0.7 0.2 - 0.8 K/cumm [facility] Eosinophil abs 0.3 0.0 - 0.5 K/cumm [facility] Basophil abs 0.1 0.0 - 0.1 K/cumm [facility] Neutrophil pct 61.1 % [facility] Comment: Interpretive Data Percent cell count reference ranges are not reported, since discordance with absolute values may lead to misinterpretation of CBC data. Current Interpretive Data was last revised on 2017. Imm gran pct 0.5 % [facility] Comment: Interpretive Data Percent cell count reference ranges are not reported, since discordance with absolute values may lead to misinterpretation of CBC data. Current Interpretive Data was last revised on 2017. Lymphocyte pct 25.9 % [facility] Comment: Interpretive Data Percent cell count reference ranges are not reported, since discordance with absolute values may lead to misinterpretation of CBC data. Current Interpretive Data was last revised on 2017. Monocyte pct 8.7 % [facility] Comment: Interpretive Data Percent cell count reference ranges are not reported, since discordance with absolute values may lead to misinterpretation of CBC data. Current Interpretive Data was last revised on 2017. Eosinophil pct 3.2 % [facility] Comment: Interpretive Data Percent cell count reference ranges are not reported, since discordance with absolute values may lead to misinterpretation of CBC data. Current Interpretive Data was last revised on 2017. Basophil pct 0.6 % [facility] Comment: Interpretive Data Percent cell count reference ranges are not reported, since discordance with absolute values may lead to misinterpretation of CBC data. Current Interpretive Data was last revised on 2017. Blood 12/11/2023 10:1 5 PM CDT 12/11/2023 11:07 PM CDT us Maxime Lee MD LAB BLOOD ORDERABLES Final R esult Performing Organization Address City/[facility]/ZIP Co de Phone Number [facility] [place] [address] * Magnesium (12/11/2023 10:15 PM CDT) [facility] Magnesium 2.0 1.4 - 2.5 mg/dL Blood 12/11/2023 10:1 5 PM CDT 12/11/2023 11:02 PM CDT us Álvaro Radford MD LAB BLOOD ORDERABLES Final Result Performing Organization Address [facility] Co de Phone Number [facility] Department [place] [address] * (ABNORMAL) Renal function panel (12/11/2023 10:15 PM CDT) [facility] Sodium 140 135 - 145 mmol/L Potassium, pl 4.4 3.3 - 4.9 mmol/L [facility] Chloride 103 97 - 110 mmol/L [facility] CO2 28 22 - 32 mmol/L [facility] Anion gap 9 2 - 15 mmol/L [facility] BUN 13 6 - 25 mg/dL [facility] Creatinine 0.80 0.60 - 1.10 mg/dL [facility] Glucose 161 70 - 199 mg/dL [facility] Comment: Interpretive Data Fasting glucose >/= [...] 2022. Calcium 8.2(L) 8.5 - 10.3 mg/dL [facility] Phosphorus, pl 3.0 2.3 - 4.5 mg/dL [facility] Albumin 2.8(L) 3.5 - 5.0 g/dL [facility] Blood 12/11/2023 10:1 5 PM CDT 12/11/2023 11:02 PM CDT Álvaro Radford MD LAB BLOOD ORDERABLES Final Result [facility] [place] [address] * (ABNORMAL) CBC with auto differential (12/11/2023 10:15 PM CDT) WBC 8.2 3.8 - 9.9 K/cumm Hgb 7.3(L) 11.9 - 15.5 g/dL [facility] Hct 25.3(L) 35.6 - 45.5 % [facility] Plt 290 150 - 400 K/cumm [facility] MPV 10.8 9.1 - 12.3 fL [facility] RBC 2.90(L) 3.90 - 5.20 M/cumm [facility] MCV 87.2 81.3 - 96.4 fL [facility] MCH 25.2(L) 27.1 - 33.3 pg [facility] MCHC 28.9(L) 32.3 - 35.7 g/dL [facility] RDW CV 19.1(H) 11.1 - 14.9 % [facility] RDW SD 61.1(H) 35.7 - 48.1 fL [facility] NRBC abs 0.00 0.00 - 0.01 K/cumm [facility] Blood 12/11/2023 10:1 5 PM CDT 12/11/2023 11:07 PM CDT us Maxime Lee MD LAB BLOOD ORDERABLES Final R esult Performing Organization Address City/[facility] Co de Phone Number [facility] [place] [employer] [address] * POCT glucose (12/11/2023 9:48 PM CDT) Glucose, POC 181 70 - 199 mg/dL Blood 12/11/2023 9:48 PM CDT 12/11/2023 9:48 PM CDT us Álvaro Radford MD LAB POCT ORDERABLES - DEVIC E Final Result Performing Organization Address City/[facility] Co de Phone Number [facility] [place] [address] * POCT glucose (12/11/2023 4:59 PM CDT) Glucose, POC 95 70 - 199 mg/dL Blood 12/11/2023 4:59 PM CDT 12/11/2023 4:59 PM CDT us Álvaro Radford MD LAB POCT ORDERABLES - DEVIC E Final Result Performing Organization Address [facility] Co de Phone Number [facility] [employer] [place], [place] [id number] * (ABNORMAL) POCT glucose (12/11/2023 11:48 AM CDT) Glucose, POC 207(H) 70 - 199 mg/dL Blood 12/11/2023 11:4 8 AM CDT 12/11/2023 11:48 AM CDT us Álvaro Radford MD LAB POCT ORDERABLES - DEVIC E Final Result Performing Organization Address [facility] de Phone Number [facility] [place] [address] * POCT glucose (12/11/2023 8:31 AM CDT) Pathologist [facility] Glucose, POC 110 70 - 199 mg/dL Blood 12/11/2023 8:31 AM CDT 12/11/2023 8:31 AM CDT us Álvaro Radford MD LAB POCT ORDERABLES - DEVIC E Final Result Performing Organization Address [facility] de Phone Number [facility] [place] [address] * (ABNORMAL) Hemoglobin and hematocrit (12/11/2023 3:14 AM CDT) [facility] Hgb 7.2(L) 11.9 - 15.5 g/dL Hct 23.9(L) 35.6 - 45.5 % [facility] Blood 12/11/2023 3:14 AM CDT 12/11/2023 3:34 AM CDT Result [facility] Álvaro Radfrod MD LAB BLOOD ORDERABLES Final Result Performing Organization Address [facility] [place] [address] * eGFR (12/11/2023 12:10 AM CDT) [facility] eGFR 75 >=60 mL/min/1. 73 m2 Comment: [...] BLOOD ORDERABLES Final Result Performing Organization Address City/State/[facility] Co de Phone Number [facility] Department [place] [address] * (ABNORMAL) Differential, auto (12/11/2023 12:10 AM CDT) Pathologist [facility] Neutrophil abs 6.4 1.5 - 6.5 K/cumm Imm gran abs 0.1 0.0 - 0.1 K/cumm [facility] Lymphocyte abs 2.4 0.8 - 3.3 K/cumm [facility] Monocyte abs 1.1(H) 0.2 - 0.8 K/cumm [facility] Eosinophil abs 0.3 0.0 - 0.5 K/cumm [facility] Basophil abs 0.1 0.0 - 0.1 K/cumm [facility] Neutrophil pct 62.4 % [facility] Comment: Interpretive Data Percent cell count reference ranges are not reported, since discordance with absolute values may lead to misinterpretation of CBC data. Current Interpretive Data was last revised on 2017. Imm gran pct 0.5 % [facility] Comment: Interpretive Data Percent cell count reference ranges are not reported, since discordance with absolute values may lead to misinterpretation of CBC data. Current Interpretive Data was last revised on 2017. Lymphocyte pct 23.6 % [facility] Comment: Interpretive Data Percent cell count reference ranges are not reported, since discordance with absolute values may lead to misinterpretation of CBC data. Current Interpretive Data was last revised on 2017. Monocyte pct 10.3 % [facility] Comment: Interpretive Data Percent cell count reference ranges are not reported, since discordance with absolute values may lead to misinterpretation of CBC data. Current Interpretive Data was last revised on 2017. Eosinophil pct 2.7 % [facility] Comment: Interpretive Data Percent cell count reference ranges are not reported, since discordance with absolute values may lead to misinterpretation of CBC data. Current Interpretive Data was last revised on 2017. Basophil pct 0.5 % [facility] Comment: Interpretive Data Percent cell count reference ranges are not reported, since discordance with absolute values may lead to misinterpretation of CBC data. Current Interpretive Data was last revised on 2017. Blood 12/11/2023 12:1 0 AM CDT 12/11/2023 12:37 AM CDT us Maxime Lee MD LAB BLOOD ORDERABLES Final R esult [facility] [place] [address] * Magnesium (12/11/2023 12:10 AM CDT) Magnesium 1.8 1.4 - 2.5 mg/dL Blood 12/11/2023 12:1 0 AM CDT 12/11/2023 12:37 AM CDT Álvaro Radford MD LAB BLOOD ORDERABLES Final Result Performing Organization Address [facility] [place] [address] * Type and screen (12/11/2023 12:10 AM CDT) Pathologist [facility] Maira, indirect Negative ABO Rh O Positive [facility] Blood 12/11/2023 12:1 0 AM CDT 12/11/2023 12:26 AM CDT Narrative [facility] - 12/11/2023 1:33 AM CDT Has the patient had Daratumumab or Isatuximab in the past 6 months?->Unknown Álvaro Radford MD LAB BLOOD BANK TEST ORDERAB LES Final Result Performing Organization Address [facility] de Phone Number [facility] [place] [address] * (ABNORMAL) Renal function panel (12/11/2023 12:10 AM CDT) Pathologist [facility] Sodium 138 135 - 145 mmol/L Potassium, pl 3.9 3.3 - 4.9 mmol/L [facility] Chloride 105 97 - 110 mmol/L [facility] CO2 26 22 - 32 mmol/L [facility] Anion gap 7 2 - 15 mmol/L [facility] BUN 13 6 - 25 mg/dL [facility] Creatinine 0.86 0.60 - 1.10 mg/dL [facility] Glucose 111 70 - 199 mg/dL [facility] Comment: Interpretive Data Fasting glucose >/= [...] 2022. Calcium 8.4(L) 8.5 - 10.3 mg/dL [facility] Phosphorus, pl 2.8 2.3 - 4.5 mg/dL [facility] Albumin 2.1(L) 3.5 - 5.0 g/dL [facility] Blood 12/11/2023 12:1 0 AM CDT 12/11/2023 12:37 AM CDT us Álvaro Radford MD LAB BLOOD ORDERABLES Final Result [facility] [place] [address] * (ABNORMAL) CBC with auto differential (12/11/2023 12:10 AM CDT) WBC 10.2(H) 3.8 - 9.9 K/cumm Hgb 7.0(L) 11.9 - 15.5 g/dL [facility] Hct 23.7(L) 35.6 - 45.5 % [facility] Plt 424(H) 150 - 400 K/cumm [facility] MPV 9.3 9.1 - 12.3 fL [facility] RBC 2.71(L) 3.90 - 5.20 M/cumm [facility] MCV 87.5 81.3 - 96.4 fL [facility] MCH 25.8(L) 27.1 - 33.3 pg [facility] MCHC 29.5(L) 32.3 - 35.7 g/dL [facility] RDW CV 19.1(H) 11.1 - 14.9 % [facility] RDW SD 61.2(H) 35.7 - 48.1 fL [facility] NRBC abs 0.00 0.00 - 0.01 K/cumm [facility] Blood 12/11/2023 12:1 0 AM CDT 12/11/2023 12:37 AM CDT us Maxime Lee MD LAB BLOOD ORDERABLES Final R esult Performing Organization Address [facility] Co de Phone Number [facility] [place] [address] * POCT glucose (12/10/2023 8:55 PM CDT) Glucose, POC 167 70 - 199 mg/dL Blood 12/10/2023 8:55 PM CDT 12/10/2023 8:55 PM CDT us Álvaro Radford MD LAB POCT ORDERABLES - DEVIC E Final Result Performing Organization Address [facility] de Phone Number [facility] [place] [address] * POCT glucose (12/10/2023 5:23 PM CDT) Glucose, POC 116 70 - 199 mg/dL Blood 12/10/2023 5:23 PM CDT 12/10/2023 5:23 PM CDT us Álvaro Radford MD LAB POCT ORDERABLES - DEVIC E Final Result Performing Organization Address [facility] de Phone Number [facility] [place] [address] * POCT glucose (12/10/2023 11:28 AM CDT) Glucose, POC 165 70 - 199 mg/dL Blood 12/10/2023 11:2 8 AM CDT 12/10/2023 11:28 AM CDT us Álvaro Radford MD LAB POCT ORDERABLES - DEVIC E Final Result [facility] [place] [address] * POCT glucose (12/10/2023 8:32 AM CDT) Glucose, POC 111 70 - 199 mg/dL Blood 12/10/2023 8:32 AM CDT 12/10/2023 8:32 AM CDT us Álvaro Radford MD LAB POCT ORDERABLES - DEVIC E Final Result Performing Organization Address [facility] Co de Phone Number [facility] [place] [address] * eGFR (12/09/2023 11:02 PM CDT) [facility] eGFR 81 >=60 mL/min/1. 73 m2 Comment: [...] Radford MD LAB BLOOD ORDERABLES Final Result [facility] [place] [address] * (ABNORMAL) Differential, auto (12/09/2023 11:02 PM CDT) Neutrophil abs 14.7(H) 1.5 - 6.5 K/cumm Imm gran abs 0.1 0.0 - 0.1 K/cumm [facility] Lymphocyte abs 1.9 0.8 - 3.3 K/cumm [facility] Monocyte abs 1.1(H) 0.2 - 0.8 K/cumm [facility] Eosinophil abs 0.1 0.0 - 0.5 K/cumm [facility] Basophil abs 0.1 0.0 - 0.1 K/cumm [facility] Neutrophil pct 82.0 % [facility] Comment: Interpretive Data Percent cell count reference ranges are not reported, since discordance with absolute values may lead to misinterpretation of CBC data. Current Interpretive Data was last revised on 2017. Imm gran pct 0.7 % [facility] Comment: Interpretive Data Percent cell count reference ranges are not reported, since discordance with absolute values may lead to misinterpretation of CBC data. Current Interpretive Data was last revised on 2017. Lymphocyte pct 10.7 % [facility] Comment: Interpretive Data Percent cell count reference ranges are not reported, since discordance with absolute values may lead to misinterpretation of CBC data. Current Interpretive Data was last revised on 2017. Monocyte pct 5.9 % [facility] Comment: Interpretive Data Percent cell count reference ranges are not reported, since discordance with absolute values may lead to misinterpretation of CBC data. Current Interpretive Data was last revised on 2017. Eosinophil pct 0.4 % [facility] Comment: Interpretive Data Percent cell count reference ranges are not reported, since discordance with absolute values may lead to misinterpretation of CBC data. Current Interpretive Data was last revised on 2017. Basophil pct 0.3 % [facility] Comment: Interpretive Data Percent cell count reference ranges are not reported, since discordance with absolute values may lead to misinterpretation of CBC data. Current Interpretive Data was last revised on 2017. Blood 12/09/2023 11:0 2 PM CDT 12/09/2023 11:12 PM CDT us Maxime Lee MD LAB BLOOD ORDERABLES Final R esult [facility] [place] [address] * (ABNORMAL) Renal function panel (12/09/2023 11:02 PM CDT) Sodium 141 135 - 145 mmol/L Potassium, pl 4.1 3.3 - 4.9 mmol/L [facility] Chloride 108 97 - 110 mmol/L [facility] CO2 27 22 - 32 mmol/L [facility] Anion gap 6 2 - 15 mmol/L [facility] BUN 10 6 - 25 mg/dL [facility] Creatinine 0.81 0.60 - 1.10 mg/dL [facility] Glucose 114 70 - 199 mg/dL [facility] Comment: Interpretive Data Fasting glucose >/= [...] 2022. Calcium 8.1(L) 8.5 - 10.3 mg/dL [facility] Phosphorus, pl 3.4 2.3 - 4.5 mg/dL [facility] Albumin 2.5(L) 3.5 - 5.0 g/dL [facility] Blood 12/09/2023 11:0 2 PM CDT 12/09/2023 11:12 PM CDT us Álvaro Radford MD LAB BLOOD ORDERABLES Final Result Performing Organization Address City/[facility]/ZIP Co de Phone Number [facility] [place] [address] * (ABNORMAL) CBC with auto differential (12/09/2023 11:02 PM CDT) WBC 17.9(H) 3.8 - 9.9 K/cumm Hgb 7.3(L) 11.9 - 15.5 g/dL [facility] Hct 24.2(L) 35.6 - 45.5 % [facility] Plt 413(H) 150 - 400 K/cumm [facility] MPV 9.1 9.1 - 12.3 fL [facility] RBC 2.80(L) 3.90 - 5.20 M/cumm [facility] MCV 86.4 81.3 - 96.4 fL [facility] MCH 26.1(L) 27.1 - 33.3 pg [facility] MCHC 30.2(L) 32.3 - 35.7 g/dL [facility] RDW CV 18.8(H) 11.1 - 14.9 % [facility] RDW SD 59.6(H) 35.7 - 48.1 fL [facility] NRBC abs 0.00 0.00 - 0.01 K/cumm [facility] Blood 12/09/2023 11:0 2 PM CDT 12/09/2023 11:12 PM CDT us Maxime Lee MD LAB BLOOD ORDERABLES Final R esult Performing Organization Address City/[facility]/ZIP Co de Phone Number [facility] [place] [address] * POCT glucose (12/09/2023 8:21 PM CDT) Glucose, POC 167 70 - 199 mg/dL Blood 12/09/2023 8:21 PM CDT 12/09/2023 8:21 PM CDT Álvaro Radford MD LAB POCT ORDERABLES - DEVIC E Final Result Performing Organization Address [facility] [place] [address] * POCT glucose (12/09/2023 5:01 PM CDT) Glucose, POC 137 70 - 199 mg/dL Blood 12/09/2023 5:01 PM CDT 12/09/2023 5:01 PM CDT Álvaro Radford MD LAB POCT ORDERABLES - DEVIC E Final Result Performing Organization Address [facility] [place] [address] * Urinalysis reflex to microscopic and culture Urine (12/09/2023 4:51 PM CDT) Color, ur Yellow Yellow Clarity, ur Clear Clear [facility] Specific gravity, ur 1.016 1.003 - 1.030 [facility] pH, urine 6.0 [facility] Comment: Interpretive Data ? Urine pH is affected by diet, medications, systemic acid-base disturbances, and renal tubular function. ??pH may affect urinary stone formation. ??For example, urine pH below 6.0 may help reduce the tendency for calcium phosphate stones and pH greater than 6.0 may reduce the tendency for uric acid stone formation. Source: [facility] [employer] Current Interpretive Data was last revised on 2017 Protein, ur ql Trace Negative [facility] Glucose, ur ql Negative Negative [facility] Ketones, ur Negative Negative [facility] Bilirubin, ur Negative Negative [facility] Blood, ur Negative Negative [facility] Urobilinogen, ur <2.0 <2.0 mg/dL [facility] Nitrite, ur Negative Negative [facility] Leukocyte esterase, ur Negative Negative [facility] UA reflex comment Reflex conditions for microscopic UA and culture not met. [facility] Urine 12/09/2023 4:51 PM CDT 12/09/2023 5:25 PM CDT Álvaro Radford MD LAB MICROBIOLOGY - GENERAL ORDERABLES Final Result Performing Organization Address City/[facility]/ZIP Co de Phone Number [facility] [place] [address] * Lactate (12/09/2023 3:21 PM CDT) Lactate 1.6 0.7 - 2.0 mmol/L Blood 12/09/2023 3:21 PM CDT 12/09/2023 3:44 PM CDT Álvaro Radford MD LAB BLOOD ORDERABLES Final Result Performing Organization Address City/[facility] Co de Phone Number [facility] [place] [address] * Magnesium (12/09/2023 12:27 PM CDT) Magnesium 2.0 1.4 - 2.5 mg/dL Blood 12/09/2023 12:2 7 PM CDT 12/09/2023 12:54 PM CDT Álvaro Radford MD LAB BLOOD ORDERABLES Final Result Performing Organization Address City/[facility] Co de Phone Number [facility] [place] [address] * eGFR (12/09/2023 12:27 PM CDT) eGFR [...] Radford MD LAB BLOOD ORDERABLES Final Result [facility] [place] [address] * Basic metabolic panel (12/09/2023 12:27 PM CDT) Pathologist [facility] Sodium 136 135 - 145 mmol/L Potassium, pl See Comment 3.3 - 4.9 mmol/L [facility] Comment:Credited; Hemolyzed Specimen Chloride 102 97 - 110 mmol/L [facility] CO2 24 22 - 32 mmol/L [facility] Anion gap 10 2 - 15 mmol/L [facility] BUN 11 6 - 25 mg/dL [facility] Creatinine 0.73 0.60 - 1.10 mg/dL [facility] Glucose 160 70 - 199 mg/dL [facility] Comment: Interpretive Data Fasting glucose >/= [...] 2022. Calcium 8.8 8.5 - 10.3 mg/dL [facility] Blood 12/09/2023 12:2 7 PM CDT 12/09/2023 12:54 PM CDT us Álvaro Radford MD LAB BLOOD ORDERABLES Final Result [facility] [place] [address] * (ABNORMAL) CBC without differential (12/09/2023 12:27 PM CDT) WBC 16.5(H) 3.8 - 9.9 K/cumm Hgb 9.1(L) 11.9 - 15.5 g/dL [facility] Hct 31.0(L) 35.6 - 45.5 % [facility] Plt 516(H) 150 - 400 K/cumm [facility] MPV 9.8 9.1 - 12.3 fL [facility] RBC 3.54(L) 3.90 - 5.20 M/cumm [facility] MCV 87.6 81.3 - 96.4 fL [facility] MCH 25.7(L) 27.1 - 33.3 pg [facility] MCHC 29.4(L) 32.3 - 35.7 g/dL [facility] RDW CV 19.0(H) 11.1 - 14.9 % [facility] RDW SD 60.5(H) 35.7 - 48.1 fL [facility] NRBC abs 0.00 0.00 - 0.01 K/cumm [facility] Blood 12/09/2023 12:2 7 PM CDT 12/09/2023 12:54 PM CDT us Álvaro Radford MD LAB BLOOD ORDERABLES Final Result [facility] [place] [address] * Blood culture Blood (12/09/2023 12:27 PM CDT) Report Final Report: No growth Blood 12/09/2023 12:2 7 PM CDT 12/09/2023 1:12 PM CDT Narrative [facility] - 12/13/2023 4:00 PM CDT From [...] organism identification may be performed using the [employer] Gram-Positive Blood Culture Assay. This assay detects microbial DNA in positive blood culture broth via hybridization of target DNA to capture oligonucleotides on a microarray. This assay has been cleared by the [place] Food and Drug Administration and its performance characteristics have been verified by the [facility] Microbiology Laboratory. 5. ?For questions about this culture, contact the Microbiology Laboratory at [phone]. Interpretive data was last revised on 2019. Álvaro Radford MD LAB MICROBIOLOGY - GENERAL ORDERABLES Final Result [facility] [place] [address] * Blood culture Blood (12/09/2023 12:27 PM CDT) Report Final Report: No growth Blood 12/09/2023 12:2 7 PM CDT 12/09/2023 1:12 PM CDT Narrative GO [facility] - 12/13/2023 4:00 PM CDT Collection->Peripheral 1. [...] organism identification may be performed using the [employer] Gram-Positive Blood Culture Assay. This assay detects microbial DNA in positive blood culture broth via hybridization of target DNA to capture oligonucleotides on a microarray. This assay has been cleared by the [place] Food and Drug Administration and its performance characteristics have been verified by the [facility] Microbiology Laboratory. 5. ?For questions about this culture, contact the Microbiology Laboratory at [phone]. Interpretive data was last revised on 2019. Result Lux Radford MD LAB MICROBIOLOGY - GENERAL ORDERABLES Final Result Performing Organization Address [facility] de Phone Number [facility] [place] [address] * (ABNORMAL) POCT lactate (12/09/2023 12:20 PM CDT) Lactate POC i-STAT 5.0(C) 0.7 - 2.2 mmol/L Blood 12/09/2023 12:2 0 PM CDT 12/09/2023 12:20 PM CDT Result Lux Radford MD LAB POCT ORDERABLES - DEVIC E Final Result Performing Organization Address [facility] de Phone Number [facility] [place] [employer] [address] * POCT glucose (12/09/2023 12:02 PM CDT) Glucose, POC 175 70 - 199 mg/dL Blood 12/09/2023 12:0 2 PM CDT 12/09/2023 12:02 PM CDT us Álvaro Radford MD LAB POCT ORDERABLES - DEVIC E Final Result Performing Organization Address [facility] de Phone Number [facility] [place] [address] * POCT glucose (12/09/2023 8:12 AM CDT) Glucose, POC 135 70 - 199 mg/dL Blood 12/09/2023 8:12 AM CDT 12/09/2023 8:12 AM CDT us Álvaro Radford MD LAB POCT ORDERABLES - DEVIC E Final Result Performing Organization Address City/[facility]/ZIP Co de Phone Number [facility] [place] [address] * Magnesium (12/08/2023 8:30 PM CDT) [facility] Magnesium 2.1 1.4 - 2.5 mg/dL Blood 12/08/2023 8:30 PM CDT 12/08/2023 8:47 PM CDT us Silvia Monsivais MD LAB BLOOD ORDERABLES Fi nal Result Performing Organization Address [facility] Co de Phone Number [facility] [place] [address] * eGFR (12/08/2023 8:30 PM CDT) [facility] eGFR 82 >=60 mL/min/1. 73 m2 Comment: [...] 8:30 PM CDT 12/08/2023 8:47 PM CDT Álvaro Radford MD LAB BLOOD ORDERABLES Final Result [facility] [place] [address] * (ABNORMAL) Differential, auto (12/08/2023 8:30 PM CDT) Neutrophil abs 6.7(H) 1.5 - 6.5 K/cumm Imm gran abs 0.1 0.0 - 0.1 K/cumm [facility] Lymphocyte abs 2.3 0.8 - 3.3 K/cumm [facility] Monocyte abs 0.7 0.2 - 0.8 K/cumm [facility] Eosinophil abs 0.2 0.0 - 0.5 K/cumm [facility] Basophil abs 0.1 0.0 - 0.1 K/cumm [facility] Neutrophil pct 66.8 % [facility] Comment: Interpretive Data Percent cell count reference ranges are not reported, since discordance with absolute values may lead to misinterpretation of CBC data. Current Interpretive Data was last revised on 2017. Imm gran pct 0.6 % [facility] Comment: Interpretive Data Percent cell count reference ranges are not reported, since discordance with absolute values may lead to misinterpretation of CBC data. Current Interpretive Data was last revised on 2017. Lymphocyte pct 22.8 % [facility] Comment: Interpretive Data Percent cell count reference ranges are not reported, since discordance with absolute values may lead to misinterpretation of CBC data. Current Interpretive Data was last revised on 2017. Monocyte pct 7.1 % [facility] Comment: Interpretive Data Percent cell count reference ranges are not reported, since discordance with absolute values may lead to misinterpretation of CBC data. Current Interpretive Data was last revised on 2017. Eosinophil pct 2.1 % [facility] Comment: Interpretive Data Percent cell count reference ranges are not reported, since discordance with absolute values may lead to misinterpretation of CBC data. Current Interpretive Data was last revised on 2017. Basophil pct 0.6 % [facility] Comment: Interpretive Data Percent cell count reference ranges are not reported, since discordance with absolute values may lead to misinterpretation of CBC data. Current Interpretive Data was last revised on 2017. Blood 12/08/2023 8:30 PM CDT 12/08/2023 8:47 PM CDT us Maxime Lee MD LAB BLOOD ORDERABLES Final R esult [facility] [place] [address] * (ABNORMAL) Renal function panel (12/08/2023 8:30 PM CDT) Sodium 137 135 - 145 mmol/L Potassium, pl 4.4 3.3 - 4.9 mmol/L [facility] Chloride 104 97 - 110 mmol/L [facility] CO2 26 22 - 32 mmol/L [facility] Anion gap 7 2 - 15 mmol/L [facility] BUN 13 6 - 25 mg/dL [facility] Creatinine 0.80 0.60 - 1.10 mg/dL [facility] Glucose 178 70 - 199 mg/dL [facility] Comment: Interpretive Data Fasting glucose >/= [...] 2022. Calcium 8.7 8.5 - 10.3 mg/dL [facility] Phosphorus, pl 3.2 2.3 - 4.5 mg/dL [facility] Albumin 2.8(L) 3.5 - 5.0 g/dL [facility] Blood 12/08/2023 8:30 PM CDT 12/08/2023 8:47 PM CDT us Álvaro Radford MD LAB BLOOD ORDERABLES Final Result Performing Organization Address [facility] Co de Phone Number [facility] Department [place] [address] * (ABNORMAL) CBC with auto differential (12/08/2023 8:30 PM CDT) WBC 10.0(H) 3.8 - 9.9 K/cumm Hgb 8.4(L) 11.9 - 15.5 g/dL [facility] Hct 27.6(L) 35.6 - 45.5 % [facility] Plt 483(H) 150 - 400 K/cumm [facility] MPV 9.2 9.1 - 12.3 fL [facility] RBC 3.26(L) 3.90 - 5.20 M/cumm [facility] MCV 84.7 81.3 - 96.4 fL [facility] MCH 25.8(L) 27.1 - 33.3 pg [facility] MCHC 30.4(L) 32.3 - 35.7 g/dL [facility] RDW CV 18.6(H) 11.1 - 14.9 % [facility] RDW SD 57.9(H) 35.7 - 48.1 fL [facility] NRBC abs 0.00 0.00 - 0.01 K/cumm [facility] Blood 12/08/2023 8:30 PM CDT 12/08/2023 8:47 PM CDT us Maxime Lee MD LAB BLOOD ORDERABLES Final R esult Performing Organization Address City/[facility]/ZIP Co de Phone Number [facility] Department [place] [address] * POCT glucose (12/08/2023 8:08 PM CDT) Glucose, POC 182 70 - 199 mg/dL Blood 12/08/2023 8:08 PM CDT 12/08/2023 8:08 PM CDT us Álvaro Radford MD LAB POCT ORDERABLES - DEVIC E Final Result Performing Organization Address City/[facility] [place] [address] * POCT glucose (12/08/2023 5:56 PM CDT) Glucose, POC 130 70 - 199 mg/dL Blood 12/08/2023 5:56 PM CDT 12/08/2023 5:56 PM CDT us Álvaro Radford MD LAB POCT ORDERABLES - DEVIC E Final Result Performing Organization Address City/[facility] [place] [address] * POCT glucose (12/08/2023 4:34 PM CDT) Glucose, POC 158 70 - 199 mg/dL Blood 12/08/2023 4:34 PM CDT 12/08/2023 4:34 PM CDT us Álvaro Radford MD LAB POCT ORDERABLES - DEVIC E Final Result Performing Organization Address City/[facility] [place] [address] * POCT glucose (12/08/2023 12:27 PM CDT) Glucose, POC 136 70 - 199 mg/dL Blood 12/08/2023 12:2 7 PM CDT 12/08/2023 12:27 PM CDT Álvaro Radford MD LAB POCT ORDERABLES - DEVIC E Final Result Performing Organization Address [facility] de Phone Number [facility] [place] [address] * POCT glucose (12/08/2023 11:27 AM CDT) Glucose, POC 194 70 - 199 mg/dL Blood 12/08/2023 11:2 7 AM CDT 12/08/2023 11:27 AM CDT Álvaro Radford MD LAB POCT ORDERABLES - DEVIC E Final Result Performing Organization Address [facility] Phone Number [facility] Department [place] [address] * XR Abdomen Ap 1 Vw (12/08/2023 [...] 123 70 - 199 mg/dL Blood 12/08/2023 8:0 8 AM CDT 12/08/2023 8:08 AM CDT Álvaro Radford MD LAB POCT ORDERABLES - DEVIC E Final Result Performing Organization Address [facility] Co de Phone Number [facility] [place] [employer] [address] * POCT glucose (12/07/2023 9:36 PM CDT) Glucose, POC 159 70 - 199 mg/dL Blood 12/07/2023 9:36 PM CDT 12/07/2023 9:36 PM CDT Álvaro Radford MD LAB POCT ORDERABLES - DEVIC E Final Result Performing Organization Address [facility] Co de Phone Number [facility] Department [place] [address] * Magnesium (12/07/2023 9:16 PM CDT) Magnesium 2.3 1.4 - 2.5 mg/dL Blood 12/07/2023 9:16 PM CDT 12/07/2023 10:34 PM CDT us Álvaro Radford MD LAB BLOOD ORDERABLES Final Result Performing Organization Address [facility] Co de Phone Number GO ROBERT Abdullah[facility] Department [place] [address] * eGFR (12/07/2023 9:16 PM CDT) eGFR [...] BLOOD ORDERABLES Final Result Performing Organization Address City/[facility] Co de Phone Number GO ROBERT [facility] [place] [address] * Differential, auto (12/07/2023 9:16 PM CDT) Neutrophil abs 6.5 1.5 - 6.5 K/cumm Imm gran abs 0.0 0.0 - 0.1 K/cumm [facility] Lymphocyte abs 2.3 0.8 - 3.3 K/cumm [facility] Monocyte abs 0.7 0.2 - 0.8 K/cumm [facility] Eosinophil abs 0.2 0.0 - 0.5 K/cumm [facility] Basophil abs 0.1 0.0 - 0.1 K/cumm [facility] Neutrophil pct 66.6 % [facility] Comment: Interpretive Data Percent cell count reference ranges are not reported, since discordance with absolute values may lead to misinterpretation of CBC data. Current Interpretive Data was last revised on 2017. Imm gran pct 0.3 % [facility] Comment: Interpretive Data Percent cell count reference ranges are not reported, since discordance with absolute values may lead to misinterpretation of CBC data. Current Interpretive Data was last revised on 2017. Lymphocyte pct 23.7 % [facility] Comment: Interpretive Data Percent cell count reference ranges are not reported, since discordance with absolute values may lead to misinterpretation of CBC data. Current Interpretive Data was last revised on 2017. Monocyte pct 7.1 % [facility] Comment: Interpretive Data Percent cell count reference ranges are not reported, since discordance with absolute values may lead to misinterpretation of CBC data. Current Interpretive Data was last revised on 2017. Eosinophil pct 1.7 % [facility] Comment: Interpretive Data Percent cell count reference ranges are not reported, since discordance with absolute values may lead to misinterpretation of CBC data. Current Interpretive Data was last revised on 2017. Basophil pct 0.6 % [facility] Comment: Interpretive Data Percent cell count reference ranges are not reported, since discordance with absolute values may lead to misinterpretation of CBC data. Current Interpretive Data was last revised on 2017. Blood 12/07/2023 9:16 PM CDT 12/07/2023 10:34 PM CDT Maxime Lee MD LAB BLOOD ORDERABLES Final R esult Performing Organization Address City/[facility] Co de Phone Number [facility] [place] [address] * Infection Prevention Angie auris PCR, surveillance Axilla/Groin (12/07/2023 9:16 PM CDT) Angie auris DNA Not Detected Not Detected [facility] Comment: Interpretive Data Testing performed by [facility] Molecular Infectious Disease Laboratory using the [employer] MDX Angie auris assay. ??This assay detects DNA from Angie auris using Real-Time PCR. ??This assay is laboratory developed and is not cleared by the [place] Food and Drug Administration. ??The performance characteristics have been verified by the [facility] Molecular Infectious Disease Laboratory. Interpretive data was last reviewed on 06/11/2023 Axilla/Groin 12/07/2023 9:16 PM CDT 12/07/2023 10:38 PM CDT Familia So MD LAB MICROBIOLOGY - GENERAL OR DERABLES Final Result Performing Organization Address [facility] Co de Phone Number [facility] Department [place] [address] [facility] * Type and screen (12/07/2023 9:16 PM CDT) Maira, indirect Negative ABO Rh O Positive [facility] Blood 12/07/2023 9:16 PM CDT 12/07/2023 10:54 PM CDT Narrative [facility] - 12/07/2023 11:52 PM CDT Has the patient had Daratumumab or Isatuximab in the past 6 months?->Unknown Álvaro Radford MD LAB BLOOD BANK TEST ORDERAB LES Final Result Performing Organization Address City/[facility]/ZIP Co de Phone Number [facility] Department [place] [address] * (ABNORMAL) Renal function panel (12/07/2023 9:16 PM CDT) [facility] Sodium 136 135 - 145 mmol/L Potassium, pl 4.4 3.3 - 4.9 mmol/L [facility] Chloride 102 97 - 110 mmol/L [facility] CO2 25 22 - 32 mmol/L [facility] Anion gap 9 2 - 15 mmol/L [facility] BUN 14 6 - 25 mg/dL [facility] Creatinine 0.82 0.60 - 1.10 mg/dL [facility] Glucose 149 70 - 199 mg/dL [facility] Comment: Interpretive Data Fasting glucose >/= [...] 2022. Calcium 8.3(L) 8.5 - 10.3 mg/dL [facility] Phosphorus, pl 3.3 2.3 - 4.5 mg/dL [facility] Albumin 2.7(L) 3.5 - 5.0 g/dL [facility] Blood 12/07/2023 9:16 PM CDT 12/07/2023 10:34 PM CDT us Álvaro Radford MD LAB BLOOD ORDERABLES Final Result [facility] Department [place] [address] * (ABNORMAL) CBC with auto differential (12/07/2023 9:16 PM CDT) WBC 9.7 3.8 - 9.9 K/cumm Hgb 7.8(L) 11.9 - 15.5 g/dL [facility] Hct 26.1(L) 35.6 - 45.5 % [facility] Plt 487(H) 150 - 400 K/cumm [facility] MPV 9.0(L) 9.1 - 12.3 fL [facility] RBC 3.07(L) 3.90 - 5.20 M/cumm [facility] MCV 85.0 81.3 - 96.4 fL [facility] MCH 25.4(L) 27.1 - 33.3 pg [facility] MCHC 29.9(L) 32.3 - 35.7 g/dL [facility] RDW CV 18.7(H) 11.1 - 14.9 % [facility] RDW SD 58.5(H) 35.7 - 48.1 fL [facility] NRBC abs 0.00 0.00 - 0.01 K/cumm [facility] Blood 12/07/2023 9:16 PM CDT 12/07/2023 10:34 PM CDT us Maxime Lee MD LAB BLOOD ORDERABLES Final R esult Performing Organization Address City/[facility] Co de Phone Number [facility] [place] [address] * POCT glucose (12/07/2023 5:14 PM CDT) Pathologist [facility] Glucose, POC 147 70 - 199 mg/dL Blood 12/07/2023 5:14 PM CDT 12/07/2023 5:14 PM CDT Álvaro Radford MD LAB POCT ORDERABLES - DEVIC E Final Result Performing Organization Address [facility]/ZIP Co de Phone Number [facility] [place] [address] * POCT glucose (12/07/2023 11:36 AM CDT) Glucose, POC 138 70 - 199 mg/dL Blood 12/07/2023 11:3 6 AM CDT 12/07/2023 11:36 AM CDT Álvaro Radford MD LAB POCT ORDERABLES - DEVIC E Final Result Performing Organization Address [facility] de Phone Number [facility] [place] [address] * POCT glucose (12/07/2023 8:41 AM CDT) Pathologist [facility] Glucose, POC 136 70 - 199 mg/dL Blood 12/07/2023 8:41 AM CDT 12/07/2023 8:41 AM CDT Álvaro Radford MD LAB POCT ORDERABLES - DEVIC E Final Result Performing Organization Address [facility] de Phone Number [facility] [place] [address] * Magnesium (12/06/2023 9:47 PM CDT) [facility] Magnesium 1.9 1.4 - 2.5 mg/dL Blood 12/06/2023 9:47 PM CDT 12/06/2023 10:29 PM CDT Álvaro Radford MD LAB BLOOD ORDERABLES Final Result Performing Organization Address [facility] de Phone Number [facility] [place] [address] * eGFR (12/06/2023 9:47 PM CDT) Pathologist [facility] eGFR 79 >=60 mL/min/1. 73 m2 Comment: [...] BLOOD ORDERABLES Final Result Performing Organization Address City/State/[facility] Co de Phone Number [facility] [place] [address] * (ABNORMAL) Differential, auto (12/06/2023 9:47 PM CDT) Pathologist [facility] Neutrophil abs 8.7(H) 1.5 - 6.5 K/cumm Imm gran abs 0.1 0.0 - 0.1 K/cumm [facility] Lymphocyte abs 2.3 0.8 - 3.3 K/cumm [facility] Monocyte abs 0.9(H) 0.2 - 0.8 K/cumm [facility] Eosinophil abs 0.2 0.0 - 0.5 K/cumm [facility] Basophil abs 0.1 0.0 - 0.1 K/cumm [facility] Neutrophil pct 71.3 % [facility] Comment: Interpretive Data Percent cell count reference ranges are not reported, since discordance with absolute values may lead to misinterpretation of CBC data. Current Interpretive Data was last revised on 2017. Imm gran pct 0.5 % [facility] Comment: Interpretive Data Percent cell count reference ranges are not reported, since discordance with absolute values may lead to misinterpretation of CBC data. Current Interpretive Data was last revised on 2017. Lymphocyte pct 19.0 % [facility] Comment: Interpretive Data Percent cell count reference ranges are not reported, since discordance with absolute values may lead to misinterpretation of CBC data. Current Interpretive Data was last revised on 2017. Monocyte pct 7.0 % [facility] Comment: Interpretive Data Percent cell count reference ranges are not reported, since discordance with absolute values may lead to misinterpretation of CBC data. Current Interpretive Data was last revised on 2017. Eosinophil pct 1.6 % [facility] Comment: Interpretive Data Percent cell count reference ranges are not reported, since discordance with absolute values may lead to misinterpretation of CBC data. Current Interpretive Data was last revised on 2017. Basophil pct 0.6 % [facility] Comment: Interpretive Data Percent cell count reference ranges are not reported, since discordance with absolute values may lead to misinterpretation of CBC data. Current Interpretive Data was last revised on 2017. Blood 12/06/2023 9:47 PM CDT 12/06/2023 10:24 PM CDT us Maxime Lee MD LAB BLOOD ORDERABLES Final R esult [facility] [place] [address] * (ABNORMAL) Renal function panel (12/06/2023 9:47 PM CDT) Sodium 136 135 - 145 mmol/L Potassium, pl 4.0 3.3 - 4.9 mmol/L [facility] Chloride 104 97 - 110 mmol/L [facility] CO2 24 22 - 32 mmol/L [facility] Anion gap 8 2 - 15 mmol/L [facility] BUN 11 6 - 25 mg/dL [facility] Creatinine 0.82 0.60 - 1.10 mg/dL [facility] Glucose 158 70 - 199 mg/dL [facility] Comment: Interpretive Data Fasting glucose >/= [...] 2022. Calcium 8.2(L) 8.5 - 10.3 mg/dL [facility] Phosphorus, pl 3.3 2.3 - 4.5 mg/dL [facility] Albumin 2.5(L) 3.5 - 5.0 g/dL [facility] Blood 12/06/2023 9:47 PM CDT 12/06/2023 10:29 PM CDT us Álvaro Radford MD LAB BLOOD ORDERABLES Final Result [facility] [place] [address] * (ABNORMAL) CBC with auto differential (12/06/2023 9:47 PM CDT) [facility] Signature WBC 12.2(H) 3.8 - 9.9 K/cumm Hgb 8.1(L) 11.9 - 15.5 g/dL [facility] Hct 27.7(L) 35.6 - 45.5 % [facility] Plt 490(H) 150 - 400 K/cumm [facility] MPV 9.1 9.1 - 12.3 fL [facility] RBC 3.23(L) 3.90 - 5.20 M/cumm [facility] MCV 85.8 81.3 - 96.4 fL [facility] MCH 25.1(L) 27.1 - 33.3 pg [facility] MCHC 29.2(L) 32.3 - 35.7 g/dL [facility] RDW CV 18.5(H) 11.1 - 14.9 % [facility] RDW SD 58.4(H) 35.7 - 48.1 fL [facility] NRBC abs 0.00 0.00 - 0.01 K/cumm [facility] Blood 12/06/2023 9:47 PM CDT 12/06/2023 10:24 PM CDT us Maxime Lee MD LAB BLOOD ORDERABLES Final R esult Performing Organization Address City/[facility]/ZIP Co de Phone Number [facility] Department [place] [address] * POCT glucose (12/06/2023 8:07 PM CDT) Glucose, POC 147 70 - 199 mg/dL Blood 12/06/2023 8:07 PM CDT 12/06/2023 8:07 PM CDT us Álvaro Radford MD LAB POCT ORDERABLES - DEVIC E Final Result [facility] [place] [address] * POCT glucose (12/06/2023 4:57 PM CDT) Glucose, POC 126 70 - 199 mg/dL Blood 12/06/2023 4:57 PM CDT 12/06/2023 4:57 PM CDT Álvaro Radford MD LAB POCT ORDERABLES - DEVIC E Final Result Performing Organization Address [facility] Co de Phone Number [facility] [place] [address] * POCT glucose (12/06/2023 11:45 AM CDT) Glucose, POC 168 70 - 199 mg/dL Blood 12/06/2023 11:4 5 AM CDT 12/06/2023 11:45 AM CDT Álvaro Radford MD LAB POCT ORDERABLES - DEVIC E Final Result Performing Organization Address [facility] de Phone Number [facility] [place] [address] * POCT glucose (12/06/2023 7:59 AM CDT) Glucose, POC 105 70 - 199 mg/dL Blood 12/06/2023 7:59 AM CDT 12/06/2023 7:59 AM CDT us Álvaro Radford MD LAB POCT ORDERABLES - DEVIC E Final Result Performing Organization Address [facility] de Phone Number [facility] [place] [address] * Vancomycin level trough Draw trough 30 minutes prior to 4th dose. (12/06/2023 4:31 AM CDT) Vancomycin trough 14.3 10.0 - 20.0 mcg/mL Blood 12/06/2023 4:31 AM CDT 12/06/2023 4:43 AM CDT Narrative [facility] - 12/06/2023 5:12 AM CDT Draw trough 30 minutes prior to 4th dose. us Álvaro Radford MD LAB BLOOD ORDERABLES Final Result GO [facility]ERT [facility] Department [place] [address] * Magnesium (12/05/2023 9:24 PM CDT) Pathologist [facility] Magnesium 2.0 1.4 - 2.5 mg/dL Blood 12/05/2023 9:24 PM CDT 12/05/2023 10:45 PM CDT Álvaro Radford MD LAB BLOOD ORDERABLES Final Result Performing Organization Address [facility] de Phone Number GO [facility] Department [place] [address] * eGFR (12/05/2023 9:24 PM CDT) Pathologist [facility] eGFR 83 >=60 mL/min/1. 73 m2 Comment: [...] Radford MD LAB BLOOD ORDERABLES Final Result [facility] [place] [address] * (ABNORMAL) Differential, auto (12/05/2023 9:24 PM CDT) Neutrophil abs 8.5(H) 1.5 - 6.5 K/cumm Imm gran abs 0.1 0.0 - 0.1 K/cumm [facility] Lymphocyte abs 2.1 0.8 - 3.3 K/cumm [facility] Monocyte abs 1.0(H) 0.2 - 0.8 K/cumm [facility] Eosinophil abs 0.3 0.0 - 0.5 K/cumm [facility] Basophil abs 0.1 0.0 - 0.1 K/cumm [facility] Neutrophil pct 70.4 % [facility] Comment: Interpretive Data Percent cell count reference ranges are not reported, since discordance with absolute values may lead to misinterpretation of CBC data. Current Interpretive Data was last revised on 2017. Imm gran pct 0.5 % [facility] Comment: Interpretive Data Percent cell count reference ranges are not reported, since discordance with absolute values may lead to misinterpretation of CBC data. Current Interpretive Data was last revised on 2017. Lymphocyte pct 17.6 % [facility] Comment: Interpretive Data Percent cell count reference ranges are not reported, since discordance with absolute values may lead to misinterpretation of CBC data. Current Interpretive Data was last revised on 2017. Monocyte pct 8.2 % [facility] Comment: Interpretive Data Percent cell count reference ranges are not reported, since discordance with absolute values may lead to misinterpretation of CBC data. Current Interpretive Data was last revised on 2017. Eosinophil pct 2.5 % [facility] Comment: Interpretive Data Percent cell count reference ranges are not reported, since discordance with absolute values may lead to misinterpretation of CBC data. Current Interpretive Data was last revised on 2017. Basophil pct 0.8 % [facility] Comment: Interpretive Data Percent cell count reference ranges are not reported, since discordance with absolute values may lead to misinterpretation of CBC data. Current Interpretive Data was last revised on 2017. Blood 12/05/2023 9:24 PM CDT 12/05/2023 10:44 PM CDT Maxime Lee MD LAB BLOOD ORDERABLES Final R esult Performing Organization Address City/[facility]/ZIP Co de Phone Number [facility] [place] [address] * ANCA vasculitis panel (12/05/2023 9:24 PM CDT) Myeloperoxidase ab <0.2 <=0.9 Ab Index Comment: Interpretive Data Negative: ??<1 Ab Index Positive: > or = 1 Ab Index Current interpretive data was last revised on 2016. Proteinase 3 ab 0.2 <=0.9 Ab Index [facility] Comment: Interpretive Data Negative: <1 Ab Index Positive: > or = 1 Ab Index Current interpretive data was last revised on 2016. Blood 12/05/2023 9:24 PM CDT 12/05/2023 9:44 PM CDT Álvaro Radford MD LAB BLOOD ORDERABLES Final Result Performing Organization Address City/[facility]/ZIP Co de Phone Number [facility] [place] [address] * (ABNORMAL) Renal function panel (12/05/2023 9:24 PM CDT) Sodium 137 135 - 145 mmol/L Potassium, pl 3.8 3.3 - 4.9 mmol/L [facility] Chloride 105 97 - 110 mmol/L [facility] CO2 26 22 - 32 mmol/L [facility] Anion gap 6 2 - 15 mmol/L [facility] BUN 17 6 - 25 mg/dL [facility] Creatinine 0.79 0.60 - 1.10 mg/dL [facility] Glucose 121 70 - 199 mg/dL [facility] Comment: Interpretive Data Fasting glucose >/= [...] 2022. Calcium 8.0(L) 8.5 - 10.3 mg/dL [facility] Phosphorus, pl 3.5 2.3 - 4.5 mg/dL [facility] Albumin 2.4(L) 3.5 - 5.0 g/dL [facility] Blood 12/05/2023 9:24 PM CDT 12/05/2023 10:45 PM CDT us Álvaro Radford MD LAB BLOOD ORDERABLES Final Result [facility] Department [place] [address] * (ABNORMAL) CBC with auto differential (12/05/2023 9:24 PM CDT) [facility] WBC 12.0(H) 3.8 - 9.9 K/cumm Hgb 7.8(L) 11.9 - 15.5 g/dL [facility] Hct 26.0(L) 35.6 - 45.5 % [facility] Plt 446(H) 150 - 400 K/cumm [facility] MPV 8.9(L) 9.1 - 12.3 fL [facility] RBC 3.09(L) 3.90 - 5.20 M/cumm [facility] MCV 84.1 81.3 - 96.4 fL [facility] MCH 25.2(L) 27.1 - 33.3 pg [facility] MCHC 30.0(L) 32.3 - 35.7 g/dL [facility] RDW CV 18.7(H) 11.1 - 14.9 % [facility] RDW SD 57.4(H) 35.7 - 48.1 fL [facility] NRBC abs 0.00 0.00 - 0.01 K/cumm [facility] Blood 12/05/2023 9:24 PM CDT 12/05/2023 10:44 PM CDT us Maxime Lee MD LAB BLOOD ORDERABLES Final R esult Performing Organization Address City/[facility]/ZIP Co de Phone Number [facility] Department [place] [address] * POCT glucose (12/05/2023 8:16 PM CDT) Glucose, POC 151 70 - 199 mg/dL Blood 12/05/2023 8:16 PM CDT 12/05/2023 8:16 PM CDT us Álvaro Radford MD LAB POCT ORDERABLES - DEVIC E Final Result [facility] Department [place] [address] * POCT glucose (12/05/2023 4:45 PM CDT) Glucose, POC 104 70 - 199 mg/dL Blood 12/05/2023 4:45 PM CDT 12/05/2023 4:45 PM CDT us Álvaro Radford MD LAB POCT ORDERABLES - DEVIC E Final Result [facility] Department [place] [address] * (ABNORMAL) POCT glucose (12/05/2023 11:44 AM CDT) Pathologist [facility] Glucose, POC 205(H) 70 - 199 mg/dL Blood 12/05/2023 11:4 4 AM CDT 12/05/2023 11:44 AM CDT Álvaro Radford MD LAB POCT ORDERABLES - DEVIC E Final Result Performing Organization Address City/[facility] Co de Phone Number [facility] Department [place] [address] * (ABNORMAL) Differential, auto (12/05/2023 11:09 AM CDT) [facility] Neutrophil abs 9.3(H) 1.5 - 6.5 K/cumm Imm gran abs 0.1 0.0 - 0.1 K/cumm [facility] Lymphocyte abs 1.7 0.8 - 3.3 K/cumm [facility] Monocyte abs 1.0(H) 0.2 - 0.8 K/cumm [facility] Eosinophil abs 0.2 0.0 - 0.5 K/cumm [facility] Basophil abs 0.1 0.0 - 0.1 K/cumm [facility] Neutrophil pct 75.4 % [facility] Comment: Interpretive Data Percent cell count reference ranges are not reported, since discordance with absolute values may lead to misinterpretation of CBC data. Current Interpretive Data was last revised on 2017. Imm gran pct 0.5 % [facility] Comment: Interpretive Data Percent cell count reference ranges are not reported, since discordance with absolute values may lead to misinterpretation of CBC data. Current Interpretive Data was last revised on 2017. Lymphocyte pct 14.1 % [facility] Comment: Interpretive Data Percent cell count reference ranges are not reported, since discordance with absolute values may lead to misinterpretation of CBC data. Current Interpretive Data was last revised on 2017. Monocyte pct 7.8 % [facility] Comment: Interpretive Data Percent cell count reference ranges are not reported, since discordance with absolute values may lead to misinterpretation of CBC data. Current Interpretive Data was last revised on 2017. Eosinophil pct 1.4 % [facility] Comment: Interpretive Data Percent cell count reference ranges are not reported, since discordance with absolute values may lead to misinterpretation of CBC data. Current Interpretive Data was last revised on 2017. Basophil pct 0.8 % [facility] Comment: Interpretive Data Percent cell count reference ranges are not reported, since discordance with absolute values may lead to misinterpretation of CBC data. Current Interpretive Data was last revised on 2017. Blood 12/05/2023 11:0 9 AM CDT 12/05/2023 11:27 AM CDT Álvaro Radford MD LAB BLOOD ORDERABLES Final Result [facility] [place] [address] * (ABNORMAL) CBC with auto differential (12/05/2023 11:09 AM CDT) WBC 12.3(H) 3.8 - 9.9 K/cumm Hgb 7.6(L) 11.9 - 15.5 g/dL [facility] Hct 25.5(L) 35.6 - 45.5 % [facility] Plt 463(H) 150 - 400 K/cumm [facility] MPV 8.9(L) 9.1 - 12.3 fL [facility] RBC 2.99(L) 3.90 - 5.20 M/cumm [facility] MCV 85.3 81.3 - 96.4 fL [facility] MCH 25.4(L) 27.1 - 33.3 pg [facility] MCHC 29.8(L) 32.3 - 35.7 g/dL [facility] RDW CV 18.6(H) 11.1 - 14.9 % [facility] RDW SD 57.7(H) 35.7 - 48.1 fL [facility] NRBC abs 0.00 0.00 - 0.01 K/cumm [facility] Blood 12/05/2023 11:0 9 AM CDT 12/05/2023 11:27 AM CDT Álvaro Radford MD LAB BLOOD ORDERABLES Final Result Performing Organization Address City/[facility] Co de Phone Number [facility] [place] [address] * (ABNORMAL) Troponin I high-sensitivity 2-hour (12/05/2023 11:09 AM CDT) Trop I hs 373(C) <=17 ng/L Comment: Previous critical value noted within 48 hours ago. Interpretive Data [facility] resources including the diagnostic algorithm and an aid in interpretation, copy and paste this link: https://bjhlab.testcatalog.org/show/[email or web address] Current Interpretive Data last revised 2019. Trop I hs pct delta -27(C) % [facility] Comment:Previous critical va lue noted within 48 hours ago. Trop I hs interp Significa nt(C) [facility] Comment:Previous critical va lue noted within 48 hours ago. Blood 12/05/2023 11:0 9 AM CDT 12/05/2023 11:27 AM CDT Álvaro Radford MD LAB BLOOD ORDERABLES Final Result Performing Organization Address [facility] Co de Phone Number [facility] Department [place] [address] * (ABNORMAL) Troponin I high-sensitivity series (baseline, 2hr, 4hr, 6hr) (12/05/2023 8:56 AM CDT) Trop I hs 509(C) <=17 ng/L Comment: Previous critical value noted within 48 hours ago. Interpretive Data For further hscTnI resources including the diagnostic algorithm and an aid in interpretation, copy and paste this link: https://bjhlab.testcatalog.org/show/[email or web address]-1 Current Interpretive Data last revised 2019. Blood 12/05/2023 8:56 AM CDT 12/05/2023 9:18 AM CDT Álvaro Radford MD LAB BLOOD ORDERABLES Final Result Performing Organization Address [facility] de Phone Number [facility] [place] [address] * POCT glucose (12/05/2023 8:02 AM CDT) Glucose, POC 148 70 - 199 mg/dL Blood 12/05/2023 8:02 AM CDT 12/05/2023 8:02 AM CDT Álvaro Radford MD LAB POCT ORDERABLES - DEVIC E Final Result Performing Organization Address [facility] de Phone Number [facility] [place] [address] * eGFR (12/04/2023 10:19 PM CDT) eGFR [...] BLOOD ORDERABLES Final Result Performing Organization Address City/[facility]/ZIP Co de Phone Number [facility] [place] [address] * Magnesium (12/04/2023 10:19 PM CDT) Pathologist [facility] Magnesium 2.0 1.4 - 2.5 mg/dL Blood 12/04/2023 10:1 9 PM CDT 12/04/2023 10:34 PM CDT Álvaro Radford MD LAB BLOOD ORDERABLES Final Result Performing Organization Address City/[facility]/ZIP Co de Phone Number [facility] Department [place] [address] * (ABNORMAL) Basic metabolic panel (12/04/2023 10:19 PM CDT) Pathologist [facility] Sodium 137 135 - 145 mmol/L Potassium, pl 4.2 3.3 - 4.9 mmol/L [facility] Chloride 105 97 - 110 mmol/L [facility] CO2 22 22 - 32 mmol/L [facility] Anion gap 10 2 - 15 mmol/L [facility] BUN 18 6 - 25 mg/dL [facility] Creatinine 0.81 0.60 - 1.10 mg/dL [facility] Glucose 197 70 - 199 mg/dL [facility] Comment: Interpretive Data Fasting glucose >/= [...] 2022. Calcium 8.1(L) 8.5 - 10.3 mg/dL [facility] Blood 12/04/2023 10:1 9 PM CDT 12/04/2023 10:34 PM CDT Álvaro Radford MD LAB BLOOD ORDERABLES Final Result [facility] [place] [address] * Type and screen (12/04/2023 10:19 PM CDT) ABO Rh O Positive Maira, indirect Negative [facility] Blood 12/04/2023 10:1 9 PM CDT 12/04/2023 10:33 PM CDT Narrative [facility] - 12/04/2023 11:33 PM CDT Has the patient had Daratumumab or Isatuximab in the past 6 months?->Unknown Álvaro Radford MD LAB BLOOD BANK TEST ORDERAB LES Final Result [facility] [place] [address] * (ABNORMAL) Troponin I high-sensitivity 6-hour (12/04/2023 10:19 PM CDT) Pathologist [facility] Trop I hs 1,176(C) <=17 ng/L Comment: Previous critical value noted within 48 hours ago. Interpretive Data For further hscTnI resources including the diagnostic algorithm and an aid in interpretation, copy and paste this link: https://bjhlab.testcatalog.org/show/[email or web address]-1 Current Interpretive Data last revised 2019. Trop I hs delta 1,171(C) ng/L [facility] Comment:Previous critical va lue noted within 48 hours ago. Trop I hs interp Significa nt(C) [facility] Comment:Previous critical va lue noted within 48 hours ago. Blood 12/04/2023 10:1 9 PM CDT 12/04/2023 10:34 PM CDT Álvaro Radford MD LAB BLOOD ORDERABLES Final Result [facility] [place] [address] * (ABNORMAL) Differential, auto (12/04/2023 8:30 PM CDT) Pathologist [facility] Neutrophil abs 22.2(H) 1.5 - 6.5 K/cumm Imm gran abs 0.2(H) 0.0 - 0.1 K/cumm [facility] Lymphocyte abs 0.7(L) 0.8 - 3.3 K/cumm [facility] Monocyte abs 1.1(H) 0.2 - 0.8 K/cumm [facility] Eosinophil abs 0.0 0.0 - 0.5 K/cumm [facility] Basophil abs 0.1 0.0 - 0.1 K/cumm [facility] Neutrophil pct 91.8 % [facility] Comment: Interpretive Data Percent cell count reference ranges are not reported, since discordance with absolute values may lead to misinterpretation of CBC data. Current Interpretive Data was last revised on 2017. Imm gran pct 0.7 % [facility] Comment: Interpretive Data Percent cell count reference ranges are not reported, since discordance with absolute values may lead to misinterpretation of CBC data. Current Interpretive Data was last revised on 2017. Lymphocyte pct 2.8 % [facility] Comment: Interpretive Data Percent cell count reference ranges are not reported, since discordance with absolute values may lead to misinterpretation of CBC data. Current Interpretive Data was last revised on 2017. Monocyte pct 4.4 % [facility] Comment: Interpretive Data Percent cell count reference ranges are not reported, since discordance with absolute values may lead to misinterpretation of CBC data. Current Interpretive Data was last revised on 2017. Eosinophil pct 0.1 % [facility] Comment: Interpretive Data Percent cell count reference ranges are not reported, since discordance with absolute values may lead to misinterpretation of CBC data. Current Interpretive Data was last revised on 2017. Basophil pct 0.2 % [facility] Comment: Interpretive Data Percent cell count reference ranges are not reported, since discordance with absolute values may lead to misinterpretation of CBC data. Current Interpretive Data was last revised on 2017. Blood 12/04/2023 8:30 PM CDT 12/04/2023 5:34 PM CDT us Maxime Lee MD LAB BLOOD ORDERABLES Final R esult [facility] [place] [address] * (ABNORMAL) CBC with auto differential (12/04/2023 8:30 PM CDT) WBC 24.2(H) 3.8 - 9.9 K/cumm Hgb 7.6(L) 11.9 - 15.5 g/dL [facility] Hct 25.3(L) 35.6 - 45.5 % [facility] Plt 483(H) 150 - 400 K/cumm [facility] MPV 8.6(L) 9.1 - 12.3 fL [facility] RBC 2.94(L) 3.90 - 5.20 M/cumm [facility] MCV 86.1 81.3 - 96.4 fL [facility] MCH 25.9(L) 27.1 - 33.3 pg [facility] MCHC 30.0(L) 32.3 - 35.7 g/dL [facility] RDW CV 18.4(H) 11.1 - 14.9 % [facility] RDW SD 58.1(H) 35.7 - 48.1 fL [facility] NRBC abs 0.00 0.00 - 0.01 K/cumm [facility] Blood 12/04/2023 8:30 PM CDT 12/04/2023 5:34 PM CDT us Maxime Lee MD LAB BLOOD ORDERABLES Final R esult Performing Organization Address City/[facility]/ZIP Co de Phone Number [facility] [place] [address] * (ABNORMAL) Troponin I high-sensitivity 4-hour (12/04/2023 8:14 PM CDT) Trop I hs 1,061(C) <=17 ng/L Comment: Previous critical value noted within 48 hours ago. Interpretive Data For further hscTnI resources including the diagnostic algorithm and an aid in interpretation, copy and paste this link: https://bjhlab.testcatalog.org/show/hsTrop-[email or web address] Current Interpretive Data last revised 2019. Trop I hs delta 1,056(C) ng/L [facility] Trop I hs interp Significa nt(C) [facility] Blood 12/04/2023 8:14 PM CDT 12/04/2023 8:26 PM CDT us Álvaro Radford MD LAB BLOOD ORDERABLES Final Result [facility] [place] [address] * (ABNORMAL) POCT glucose (12/04/2023 7:55 PM CDT) Glucose, POC 226(H) 70 - 199 mg/dL Blood 12/04/2023 7:55 PM CDT 12/04/2023 7:55 PM CDT us Álvaro Radford MD LAB POCT ORDERABLES - DEVIC E Final Result Performing Organization Address City/[facility] Co de Phone Number [facility] Department [place] [address] * Critical result callback Cardio chemistry (12/04/2023 5:58 PM CDT) [facility] Date Notified [id number] Time Notified 1848 [facility] Test name Trop I hs 2hr [facility] Called/Read Back Isabell STILES [facility] Credentials RN [facility] Called By DVB [facility] Blood 12/04/2023 5:58 PM CDT 12/04/2023 6:10 PM CDT us Álvaro Radford MD LAB BLOOD ORDERABLES Final Result Performing Organization Address [facility] de Phone Number GO [facility] [place] [address] * eGFR (12/04/2023 5:58 PM CDT) Pathologist [facility] eGFR 79 >=60 mL/min/1. 73 m2 Comment: [...] BLOOD ORDERABLES Final Result Performing Organization Address City/State/[facility] Co de Phone Number [facility] [place] [address] * (ABNORMAL) Differential, auto (12/04/2023 5:58 PM CDT) Neutrophil abs 21.7(H) 1.5 - 6.5 K/cumm Imm gran abs 0.2(H) 0.0 - 0.1 K/cumm [facility] Lymphocyte abs 0.7(L) 0.8 - 3.3 K/cumm [facility] Monocyte abs 1.2(H) 0.2 - 0.8 K/cumm [facility] Eosinophil abs 0.0 0.0 - 0.5 K/cumm [facility] Basophil abs 0.1 0.0 - 0.1 K/cumm [facility] Neutrophil pct 90.7 % [facility] Comment: Interpretive Data Percent cell count reference ranges are not reported, since discordance with absolute values may lead to misinterpretation of CBC data. Current Interpretive Data was last revised on 2017. Imm gran pct 1.0 % [facility] Comment: Interpretive Data Percent cell count reference ranges are not reported, since discordance with absolute values may lead to misinterpretation of CBC data. Current Interpretive Data was last revised on 2017. Lymphocyte pct 2.9 % [facility] Comment: Interpretive Data Percent cell count reference ranges are not reported, since discordance with absolute values may lead to misinterpretation of CBC data. Current Interpretive Data was last revised on 2017. Monocyte pct 5.0 % [facility] Comment: Interpretive Data Percent cell count reference ranges are not reported, since discordance with absolute values may lead to misinterpretation of CBC data. Current Interpretive Data was last revised on 2017. Eosinophil pct 0.1 % [facility] Comment: Interpretive Data Percent cell count reference ranges are not reported, since discordance with absolute values may lead to misinterpretation of CBC data. Current Interpretive Data was last revised on 2017. Basophil pct 0.3 % [facility] Comment: Interpretive Data Percent cell count reference ranges are not reported, since discordance with absolute values may lead to misinterpretation of CBC data. Current Interpretive Data was last revised on 2017. Blood 12/04/2023 5:58 PM CDT 12/04/2023 6:10 PM CDT Álvaro Radford MD LAB BLOOD ORDERABLES Final Result Performing Organization Address [facility] Co de Phone Number [facility] [place] [address] * Lactate (12/04/2023 5:58 PM CDT) Lactate 1.9 0.7 - 2.0 mmol/L Blood 12/04/2023 5:58 PM CDT 12/04/2023 6:10 PM CDT Álvaro Radford MD LAB BLOOD ORDERABLES Final Result Performing Organization Address [facility] Co de Phone Number [facility] Department [place] [address] * (ABNORMAL) CBC with auto differential (12/04/2023 5:58 PM CDT) [facility] WBC 23.9(H) 3.8 - 9.9 K/cumm Hgb 7.3(L) 11.9 - 15.5 g/dL [facility] Hct 24.4(L) 35.6 - 45.5 % [facility] Plt 477(H) 150 - 400 K/cumm [facility] MPV 8.5(L) 9.1 - 12.3 fL [facility] RBC 2.89(L) 3.90 - 5.20 M/cumm [facility] MCV 84.4 81.3 - 96.4 fL [facility] MCH 25.3(L) 27.1 - 33.3 pg [facility] MCHC 29.9(L) 32.3 - 35.7 g/dL [facility] RDW CV 18.4(H) 11.1 - 14.9 % [facility] RDW SD 55.9(H) 35.7 - 48.1 fL [facility] NRBC abs 0.00 0.00 - 0.01 K/cumm [facility] Blood 12/04/2023 5:58 PM CDT 12/04/2023 6:10 PM CDT us Álvaro Radford MD LAB BLOOD ORDERABLES Final Result [facility] [place] [address] * (ABNORMAL) Troponin I high-sensitivity 2-hour (12/04/2023 5:58 PM CDT) [facility] Trop I hs 770(C) <=17 ng/L Comment: Interpretive Data For further hscTnI resources including the diagnostic algorithm and an aid in interpretation, copy and paste this link: https://bjhlab.testcatalog.org/show/[email or web address] Current Interpretive Data last revised 2019. Trop I hs delta 765(C) ng/L [facility] Trop I hs interp Significa nt(C) [facility] Blood 12/04/2023 5:58 PM CDT 12/04/2023 6:10 PM CDT Álvaro Radford MD LAB BLOOD ORDERABLES Final Result [facility] Department [place] [address] * (ABNORMAL) Renal function panel (12/04/2023 5:58 PM CDT) Pathologist [facility] Sodium 136 135 - 145 mmol/L Potassium, pl 4.3 3.3 - 4.9 mmol/L [facility] Chloride 105 97 - 110 mmol/L [facility] CO2 24 22 - 32 mmol/L [facility] Anion gap 7 2 - 15 mmol/L [facility] BUN 19 6 - 25 mg/dL [facility] Creatinine 0.82 0.60 - 1.10 mg/dL [facility] Glucose 197 70 - 199 mg/dL [facility] Comment: Interpretive Data Fasting glucose >/= [...] 2022. Calcium 8.0(L) 8.5 - 10.3 mg/dL [facility] Phosphorus, pl 2.9 2.3 - 4.5 mg/dL [facility] Albumin 2.4(L) 3.5 - 5.0 g/dL [facility] Blood 12/04/2023 5:58 PM CDT 12/04/2023 6:10 PM CDT Álvaro Radford MD LAB BLOOD ORDERABLES Final Result Performing Organization Address [facility] Co de Phone Number [facility] Department [place] [address] * Blood culture Blood (12/04/2023 5:25 PM CDT) Report Final Report: No growth Blood 12/04/2023 5:25 PM CDT 12/04/2023 5:37 PM CDT Dung ROBERT - 12/09/2023 7:00 AM CDT Collection->Peripheral [...] organism identification may be performed using the [employer] Gram-Positive Blood Culture Assay. This assay detects microbial DNA in positive blood culture broth via hybridization of target DNA to capture oligonucleotides on a microarray. This assay has been cleared by the [place] Food and Drug Administration and its performance characteristics have been verified by the [facility] Microbiology Laboratory. 5. ?For questions about this culture, contact the Microbiology Laboratory at [phone]. Interpretive data was last revised on 2019. Álvaro Radford MD LAB MICROBIOLOGY - GENERAL ORDERABLES Final Result Performing Organization Address [facility] Co de Phone Number [facility] Abdullah[facility] Department [place] [address] * (ABNORMAL) Lipid panel (12/04/2023 5:24 PM CDT) [facility] Cholesterol 71 30 - 199 mg/dL Comment: [...] on 2017. Triglycerides 75 <=149 mg/dL [facility] Comment: Interpretive Data Ages [...] on 2017. HDL 27(L) >=40 mg/dL [facility] Comment: Interpretive Data Ages [...] 2017. LDL, calculated 28 <=129 mg/dL [facility] Comment: Interpretive Data Ages < or = [...] revised on 2023. Non-HDL Cholesterol 44 mg/dL [facility] Comment: Interpretive Data Ages [...] last revised on 2017. Chol/HDL ratio 3 [facility] Blood 12/04/2023 5:24 PM CDT 12/04/2023 5:34 PM CDT [facility]ative [facility] - 12/04/2023 7:03 PM CDT This lipid panel was automatically ordered due to a significant change in Troponin. The dietary status of the patient at the collection time should be correlated with the lipid results. us Álvaro Radford MD LAB BLOOD ORDERABLES Final Result [facility] [place] [address] * eGFR (12/04/2023 5:24 PM CDT) eGFR [...] 5:24 PM CDT 12/04/2023 5:34 PM CDT Álvaro Radford MD LAB BLOOD ORDERABLES Final Result [facility] [place] [address] * Magnesium (12/04/2023 5:24 PM CDT) Pathologist [facility] Magnesium 2.5 1.4 - 2.5 mg/dL Blood 12/04/2023 5:24 PM CDT 12/04/2023 5:34 PM CDT Álvaro Radford MD LAB BLOOD ORDERABLES Final Result Performing Organization Address City/[facility] Co de Phone Number [facility] Department [place] [address] * (ABNORMAL) Comprehensive metabolic panel (12/04/2023 5:24 PM CDT) Sodium 135 135 - 145 mmol/L Potassium, pl 4.4 3.3 - 4.9 mmol/L [facility] Chloride 102 97 - 110 mmol/L [facility] CO2 23 22 - 32 mmol/L [facility] Anion gap 10 2 - 15 mmol/L [facility] BUN 18 6 - 25 mg/dL [facility] Creatinine 0.83 0.60 - 1.10 mg/dL [facility] Glucose 186 70 - 199 mg/dL [facility] Comment: Interpretive Data Fasting glucose >/= [...] Calcium 8.1(L) 8.5 - 10.3 mg/dL [facility] Bilirubin, total 0.3 0.1 - 1.2 mg/dL [facility] Protein, pl 6.8 6.5 - 8.5 g/dL [facility] Albumin 2.5(L) 3.5 - 5.0 g/dL [facility] Alk phos 82 40 - 130 Units/L [facility] ALT 8 7 - 45 Units/L [facility] AST 22 10 - 45 Units/L [facility] Blood 12/04/2023 5:24 PM CDT 12/04/2023 5:34 PM CDT Álvaro Radford MD LAB BLOOD ORDERABLES Final Result Performing Organization Address [facility]/ZIP Co de Phone Number [facility] [place] [address] * POCT lactate (12/04/2023 5:19 PM CDT) [facility] Lactate POC i-STAT 1.7 0.7 - 2.2 mmol/L Blood 12/04/2023 5:19 PM CDT 12/04/2023 5:19 PM CDT Álvaro Radford MD LAB POCT ORDERABLES - DEVIC E Final Result Performing Organization Address City/[facility] Co de Phone Number [facility] [place] [address] * XR Chest 1 View (12/04/2023 4:55 [...] pneumothorax. ??Stable cardiomediastinal silhouette. Electronically signed by: Bobby Linda M.D. Narrative 12/05/2023 7:13 AM CDT EXAMINATION: 1 view chest radiograph Procedure Note Bobby Linda MD - 12/05/2023 EXAMINATION: 1 view [...] pneumothorax. Stable cardiomediastinal silhouette. Electronically signed by: Bobby Linda M.D. us Álvaro Radford MD IMG [...] IMG XR PROCEDURES Final Res ult * (ABNORMAL) Differential, auto (12/04/2023 4:02 PM CDT) Neutrophil abs 19.2(H) 1.5 - 6.5 K/cumm Imm gran abs 0.2(H) 0.0 - 0.1 K/cumm [facility] Lymphocyte abs 4.0(H) 0.8 - 3.3 K/cumm [facility] Monocyte abs 0.6 0.2 - 0.8 K/cumm [facility] Eosinophil abs 0.1 0.0 - 0.5 K/cumm [facility] Basophil abs 0.1 0.0 - 0.1 K/cumm [facility] Neutrophil pct 79.6 % [facility] Comment: Interpretive Data Percent cell count reference ranges are not reported, since discordance with absolute values may lead to misinterpretation of CBC data. Current Interpretive Data was last revised on 2017. Imm gran pct 0.6 % [facility] Comment: Interpretive Data Percent cell count reference ranges are not reported, since discordance with absolute values may lead to misinterpretation of CBC data. Current Interpretive Data was last revised on 2017. Lymphocyte pct 16.6 % [facility] Comment: Interpretive Data Percent cell count reference ranges are not reported, since discordance with absolute values may lead to misinterpretation of CBC data. Current Interpretive Data was last revised on 2017. Monocyte pct 2.5 % [facility] Comment: Interpretive Data Percent cell count reference ranges are not reported, since discordance with absolute values may lead to misinterpretation of CBC data. Current Interpretive Data was last revised on 2017. Eosinophil pct 0.3 % [facility] Comment: Interpretive Data Percent cell count reference ranges are not reported, since discordance with absolute values may lead to misinterpretation of CBC data. Current Interpretive Data was last revised on 2017. Basophil pct 0.4 % [facility] Comment: Interpretive Data Percent cell count reference ranges are not reported, since discordance with absolute values may lead to misinterpretation of CBC data. Current Interpretive Data was last revised on 2017. Blood 12/04/2023 4:02 PM CDT 12/04/2023 4:26 PM CDT us Álvaro Radford MD LAB BLOOD ORDERABLES Final Result [facility] [place] [address] * (ABNORMAL) CBC with auto differential (12/04/2023 4:02 PM CDT) Pathologist [facility] WBC 24.1(H) 3.8 - 9.9 K/cumm Hgb 9.8(L) 11.9 - 15.5 g/dL [facility] Hct 33.2(L) 35.6 - 45.5 % [facility] Plt 760(H) 150 - 400 K/cumm [facility] MPV 9.3 9.1 - 12.3 fL [facility] RBC 3.87(L) 3.90 - 5.20 M/cumm [facility] MCV 85.8 81.3 - 96.4 fL [facility] MCH 25.3(L) 27.1 - 33.3 pg [facility] MCHC 29.5(L) 32.3 - 35.7 g/dL [facility] RDW CV 18.6(H) 11.1 - 14.9 % [facility] RDW SD 58.0(H) 35.7 - 48.1 fL [facility] NRBC abs 0.00 0.00 - 0.01 K/cumm [facility] Blood 12/04/2023 4:02 PM CDT 12/04/2023 4:26 PM CDT Álvaro Radford MD LAB BLOOD ORDERABLES Final Result [facility] [place] [address] * Troponin I high-sensitivity series (baseline, 2hr, 4hr, 6hr) (12/04/2023 4:02 PM CDT) Pathologist [facility] Trop I hs 5 <=17 ng/L Comment: Interpretive Data For further hscTnI resources including the diagnostic algorithm and an aid in interpretation, copy and paste this link: https://bjhlab.testcatalog.org/show/[email or web address] Current Interpretive Data last revised 2019. Blood 12/04/2023 4:02 PM CDT 12/04/2023 4:26 PM CDT Álvaro Radford MD LAB BLOOD ORDERABLES Final Result Performing Organization Address [facility] Co de Phone Number [facility] [place] [address] * Lipase (12/04/2023 4:01 PM CDT) Pathologist [facility] Lipase 87 10 - 99 Units/L Blood 12/04/2023 4:01 PM CDT 12/04/2023 4:26 PM CDT Álvaro Radford MD LAB BLOOD ORDERABLES Final Result Performing Organization Address [facility] de Phone Number [facility] [place] [address] * eGFR (12/04/2023 4:01 PM CDT) Pathologist [facility] eGFR 75 >=60 mL/min/1. 73 m2 Comment: [...] Inclusion of Race in Diagnosing Kidney Disease, [place] 2020). The CKD-EPI equation should not be used for patients with unstable renal function and has not been validated in children and those over 70. Current interpretive data was last reviewed 2020. Blood 12/04/2023 4:01 PM CDT 12/04/2023 4:26 PM CDT Álvaro Radford MD LAB BLOOD ORDERABLES Final Result Performing Organization Address [facility] de Phone Number [facility] [place] [address] * (ABNORMAL) Blood gas, venous (12/04/2023 4:01 PM CDT) pH, Venous 7.30(L) 7.32 - 7.43 PCO2, Venous 48 40 - 50 mmHg [facility] PO2, Venous 35 mmHg [facility] Comment: Interpretive Data No Reference Range Established Current Interpretive Data was last revised on 2017. HCO3 Venous, Calculated 25 20 - 30 mmol/L [facility] BE, venous -3 mmol/L [facility] Comment: Interpretive Data No Reference Range Established Current Interpretive Data was last revised on 2017. Blood 12/04/2023 4:01 PM CDT 12/04/2023 4:18 PM CDT Álvaro Radford MD LAB BLOOD ORDERABLES Final Result Performing Organization Address [facility] de Phone Number [facility] [place] [address] * (ABNORMAL) Comprehensive metabolic panel (12/04/2023 4:01 PM CDT) Sodium 136 135 - 145 mmol/L Potassium, pl 4.9 3.3 - 4.9 mmol/L [facility] Comment:Hemolyzed; Potassium value may be falsely elevated by as much as 0.3-0.5 mmol/L. Suggest redraw and reanalysis. Chloride 100 97 - 110 mmol/L [facility] CO2 22 22 - 32 mmol/L [facility] Anion gap 14 2 - 15 mmol/L [facility] BUN 19 6 - 25 mg/dL [facility] Creatinine 0.86 0.60 - 1.10 mg/dL [facility] Glucose 188 70 - 199 mg/dL [facility] Comment: Interpretive Data Fasting glucose >/= [...] 2022. Calcium 9.1 8.5 - 10.3 mg/dL [facility] Bilirubin, total 0.3 0.1 - 1.2 mg/dL [facility] Protein, pl 8.4 6.5 - 8.5 g/dL [facility] Albumin 3.0(L) 3.5 - 5.0 g/dL [facility] Alk phos 102 40 - 130 Units/L [facility] ALT 11 7 - 45 Units/L [facility] AST 35 10 - 45 Units/L [facility] Comment:Hemolyzed; result ma y be falsely elevated Blood 12/04/2023 4:01 PM CDT 12/04/2023 4:26 PM CDT us Álvaro Radford MD LAB BLOOD ORDERABLES Final Result [facility] [place] [address] * Blood culture Blood (12/04/2023 4:01 PM CDT) Report Final Report: No growth Blood 12/04/2023 4:01 PM CDT 12/04/2023 4:46 PM CDT Narrative [facility] - 12/09/2023 7:00 AM CDT From a [...] organism identification may be performed using the [employer] Gram-Positive Blood Culture Assay. This assay detects microbial DNA in positive blood culture broth via hybridization of target DNA to capture oligonucleotides on a microarray. This assay has been cleared by the [place] Food and Drug Administration and its performance characteristics have been verified by the [facility] Microbiology Laboratory. 5. ?For questions about this culture, contact the Microbiology Laboratory at [phone]. Interpretive data was last revised on 2019. Álvaro Radford MD LAB MICROBIOLOGY - GENERAL ORDERABLES Final Result [facility] [place] [address] * POCT glucose (12/04/2023 3:30 PM CDT) [facility] Signature Glucose, POC 192 70 - 199 mg/dL Blood 12/04/2023 3:30 PM CDT 12/04/2023 3:30 PM CDT Álvaro Radford MD LAB POCT ORDERABLES - DEVIC E Final Result [facility] Abdullahi [facility] [place] [address] * POCT glucose (12/04/2023 11:36 AM CDT) Glucose, POC 146 70 - 199 mg/dL Blood 12/04/2023 11:3 6 AM CDT 12/04/2023 11:36 AM CDT Álvaro Radford MD LAB POCT ORDERABLES - DEVIC E Final Result Performing Organization Address [facility] Co de Phone Number [facility] Abdullahi [facility] [place] [address] * PET/CT FDG Skull to Thigh (12/04/2023 [...] FDG-PET/CT IMAGING DATE OF STUDY: ??12/04/2023 SCANNER: [employer] (NV1). ??This is a high-resolution scanner, which [...] obtained. ??The study was interpreted on the [employer] workstation. ??The mean liver SUV (reported for water quality analyst purposes) is 1.5 The total scanned area [...] FDG-PET/CT IMAGING DATE OF STUDY: 12/04/2023 SCANNER: [facility] [employer] (NV1). This is a high-resolution scanner, which [...] obtained. The study was interpreted on the [employer] workstation. The mean liver SUV (reported for water quality analyst purposes) is 1.5 The total scanned area [...] POCT ORDERABLES - DEVIC E Final Result [facility] [place] [address] * (ABNORMAL) Differential, auto (12/04/2023 12:19 AM CDT) Neutrophil abs 8.9(H) 1.5 - 6.5 K/cumm Imm gran abs 0.1 0.0 - 0.1 K/cumm [facility] Lymphocyte abs 2.3 0.8 - 3.3 K/cumm [facility] Monocyte abs 1.0(H) 0.2 - 0.8 K/cumm [facility] Eosinophil abs 0.2 0.0 - 0.5 K/cumm [facility] Basophil abs 0.1 0.0 - 0.1 K/cumm [facility] Neutrophil pct 70.8 % [facility] Comment: Interpretive Data Percent cell count reference ranges are not reported, since discordance with absolute values may lead to misinterpretation of CBC data. Current Interpretive Data was last revised on 2017. Imm gran pct 0.8 % [facility] Comment: Interpretive Data Percent cell count reference ranges are not reported, since discordance with absolute values may lead to misinterpretation of CBC data. Current Interpretive Data was last revised on 2017. Lymphocyte pct 18.0 % [facility] Comment: Interpretive Data Percent cell count reference [...] on 2017. Eosinophil pct 1.6 % [facility] Comment: Interpretive Data Percent cell count reference [...] MD LAB BLOOD ORDERABLES Final R esult [facility] [place] [address] * (ABNORMAL) CBC with auto differential (12/04/2023 12:19 AM CDT) Pathologist [facility] WBC 12.6(H) 3.8 - 9.9 K/cumm Hgb 7.9(L) 11.9 - 15.5 g/dL [facility] Hct 25.9(L) 35.6 - 45.5 % [facility] Plt 478(H) 150 - 400 K/cumm [facility] MPV 8.9(L) 9.1 - 12.3 fL [facility] RBC 3.12(L) 3.90 - 5.20 M/cumm [facility] MCV 83.0 81.3 - 96.4 fL [facility] MCH 25.3(L) 27.1 - 33.3 pg [facility] MCHC 30.5(L) 32.3 - 35.7 g/dL [facility] RDW CV 18.4(H) 11.1 - 14.9 % [facility] RDW SD 55.4(H) 35.7 - 48.1 fL [facility] NRBC abs 0.00 0.00 - 0.01 K/cumm [facility] Blood 12/04/2023 12:1 9 AM CDT 12/04/2023 1:01 AM CDT us Maxime Lee MD LAB BLOOD ORDERABLES Final R esult [facility] [place] [address] * POCT glucose (12/03/2023 8:52 PM CDT) Glucose, POC 166 70 - 199 mg/dL Blood 12/03/2023 8:52 PM CDT 12/03/2023 8:52 PM CDT Álvaro Radford MD LAB POCT ORDERABLES - DEVIC E Final Result Performing Organization Address [facility] de Phone Number [facility] [place] [address] * POCT glucose (12/03/2023 4:55 PM CDT) Glucose, POC 146 70 - 199 mg/dL Blood 12/03/2023 4:55 PM CDT 12/03/2023 4:55 PM CDT Álvaro Radford MD LAB POCT ORDERABLES - DEVIC E Final Result Performing Organization Address [facility] de Phone Number [facility] [place] [address] * (ABNORMAL) POCT glucose (12/03/2023 11:28 AM CDT) Glucose, POC 244(H) 70 - 199 mg/dL Blood 12/03/2023 11:2 8 AM CDT 12/03/2023 11:28 AM CDT Álvaro Radford MD LAB POCT ORDERABLES - DEVIC E Final Result Performing Organization Address [facility] de Phone Number [facility] [place] [address] * POCT glucose (12/03/2023 8:48 AM CDT) Glucose, POC 145 70 - 199 mg/dL Blood 12/03/2023 8:48 AM CDT 12/03/2023 8:48 AM CDT us Álvaro Radford MD LAB POCT ORDERABLES - DEVIC E Final Result Performing Organization Address [facility] Co de Phone Number [facility] [place] [address] * eGFR (12/03/2023 12:09 AM CDT) eGFR [...] ORDERABLES Final Resul t Performing Organization Address City/[facility] Co de Phone Number GO ROBERT Abdullahi [facility] [place] [address] * (ABNORMAL) Differential, auto (12/03/2023 12:09 AM CDT) Neutrophil abs 8.8(H) 1.5 - 6.5 K/cumm Imm gran abs 0.1 0.0 - 0.1 K/cumm [facility] Lymphocyte abs 2.5 0.8 - 3.3 K/cumm [facility] Monocyte abs 0.9(H) 0.2 - 0.8 K/cumm [facility] Eosinophil abs 0.2 0.0 - 0.5 K/cumm [facility] Basophil abs 0.1 0.0 - 0.1 K/cumm [facility] Neutrophil pct 70.1 % [facility] Comment: Interpretive Data Percent cell count reference ranges are not reported, since discordance with absolute values may lead to misinterpretation of CBC data. Current Interpretive Data was last revised on 2017. Imm gran pct 0.6 % [facility] Comment: Interpretive Data Percent cell count reference ranges are not reported, since discordance with absolute values may lead to misinterpretation of CBC data. Current Interpretive Data was last revised on 2017. Lymphocyte pct 20.1 % [facility] Comment: Interpretive Data Percent cell count reference ranges are not reported, since discordance with absolute values may lead to misinterpretation of CBC data. Current Interpretive Data was last revised on 2017. Monocyte pct 7.2 % [facility] Comment: Interpretive Data Percent cell count reference ranges are not reported, since discordance with absolute values may lead to misinterpretation of CBC data. Current Interpretive Data was last revised on 2017. Eosinophil pct 1.4 % [facility] Comment: Interpretive Data Percent [...] 9 AM CDT 12/03/2023 12:27 AM CDT Maxime Lee MD LAB BLOOD ORDERABLES Final R esult Performing Organization Address [facility] Co de Phone Number [facility] [place] [address] * Folate (12/03/2023 12:09 AM CDT) [facility] Folic acid 18.0 >=5.0 ng/mL Blood 12/03/2023 12:0 9 AM CDT 12/03/2023 12:27 AM CDT us Álvaro Radford MD LAB BLOOD ORDERABLES Final Result Performing Organization Address [facility] Phone Number [facility] [place] [address] * Vitamin B12 (12/03/2023 12:09 AM CDT) [facility] Vitamin B12 1,114 230 - 1,250 pg/mL Blood 12/03/2023 12:0 9 AM CDT 12/03/2023 12:27 AM CDT Álvaro Radford MD LAB BLOOD ORDERABLES Final Result Performing Organization Address [facility] de Phone Number [facility] [place] [address] * (ABNORMAL) Renal function panel (12/03/2023 12:09 AM CDT) [facility] Sodium 134(L) 135 - 145 mmol/L Potassium, pl 4.3 3.3 - 4.9 mmol/L [facility] Chloride 100 97 - 110 mmol/L [facility] CO2 26 22 - 32 mmol/L [facility] Anion gap 8 2 - 15 mmol/L [facility] BUN 16 6 - 25 mg/dL [facility] Creatinine 0.77 0.60 - 1.10 mg/dL [facility] Glucose 140 70 - 199 mg/dL [facility] Comment: Interpretive Data Fasting glucose >/= [...] 2022. Calcium 8.6 8.5 - 10.3 mg/dL [facility] Phosphorus, pl 3.3 2.3 - 4.5 mg/dL [facility] Albumin 2.7(L) 3.5 - 5.0 g/dL [facility] Blood 12/03/2023 12:0 9 AM CDT 12/03/2023 12:27 AM CDT us Suhail Alfredo MD LAB BLOOD ORDERABLES Final Resul t [facility] [place] [address] * (ABNORMAL) CBC with auto differential (12/03/2023 12:09 AM CDT) WBC 12.5(H) 3.8 - 9.9 K/cumm Hgb 8.3(L) 11.9 - 15.5 g/dL [facility] Hct 28.2(L) 35.6 - 45.5 % [facility] Plt 481(H) 150 - 400 K/cumm [facility] MPV 9.3 9.1 - 12.3 fL [facility] RBC 3.30(L) 3.90 - 5.20 M/cumm [facility] MCV 85.5 81.3 - 96.4 fL [facility] MCH 25.2(L) 27.1 - 33.3 pg [facility] MCHC 29.4(L) 32.3 - 35.7 g/dL [facility] RDW CV 18.4(H) 11.1 - 14.9 % [facility] RDW SD 57.8(H) 35.7 - 48.1 fL [facility] NRBC abs 0.00 0.00 - 0.01 K/cumm [facility] Blood 12/03/2023 12:0 9 AM CDT 12/03/2023 12:27 AM CDT us Maxime Lee MD LAB BLOOD ORDERABLES Final R esult Performing Organization Address City/[facility] Co de Phone Number [facility] Department [place] [address] * (ABNORMAL) POCT glucose (12/02/2023 8:47 PM CDT) Glucose, POC 216(H) 70 - 199 mg/dL Comment:Glu2: RN/MD Notified Glucose comment 1 Glu2: RN/MD Notified [facility] Blood 12/02/2023 8:47 PM CDT 12/02/2023 8:47 PM CDT us Álvaro Radford MD LAB POCT ORDERABLES - DEVIC E Final Result Performing Organization Address City/[facility] Co de Phone Number [facility] Department [place] [address] * POCT glucose (12/02/2023 4:47 PM CDT) Glucose, POC 174 70 - 199 mg/dL Blood 12/02/2023 4:47 PM CDT 12/02/2023 4:47 PM CDT us Álvaro Radford MD LAB POCT ORDERABLES - DEVIC E Final Result Performing Organization Address [facility] Co de Phone Number [facility] [place] [address] * POCT glucose (12/02/2023 1:15 PM CDT) Glucose, POC 133 70 - 199 mg/dL Blood 12/02/2023 1:15 PM CDT 12/02/2023 1:15 PM CDT Álvaro Radford MD LAB POCT ORDERABLES - DEVIC E Final Result [facility] [place] [address] * POCT glucose (12/02/2023 12:07 PM CDT) Glucose, POC 196 70 - 199 mg/dL Blood 12/02/2023 12:0 7 PM CDT 12/02/2023 12:07 PM CDT Álvaro Radford MD LAB POCT ORDERABLES - DEVIC E Final Result Performing Organization Address City/[facility] [place] [address] * BLOOD MISC TO [place] (12/02/2023 9:42 AM CDT) Test name, chem SFUNG, Fungitell, Serum [place] ref [facility] Misc See Comment [facility] Comment:Credited, test not i ndicated. Blood 12/02/2023 9:42 AM CDT 12/03/2023 11:51 AM CDT Álvaro Radford MD LAB BLOOD ORDERABLES Final Result [facility] [place] [address] [place] ref [facility] * POCT glucose (12/02/2023 8:19 AM CDT) Glucose, POC 137 70 - 199 mg/dL Blood 12/02/2023 8:19 AM CDT 12/02/2023 8:19 AM CDT us Álvaro Radford MD LAB POCT ORDERABLES - DEVIC E Final Result Performing Organization Address City/State/ZIP Co wy Phone Number GO [facility] [place] [address] * eGFR (12/01/2023 9:46 PM CDT) eGFR [...] LAB BLOOD ORDERABLES Final Resul t GO [facility] [place] [address] * (ABNORMAL) Differential, auto (12/01/2023 9:46 PM CDT) Neutrophil abs 10.2(H) 1.5 - 6.5 K/cumm Imm gran abs 0.1 0.0 - 0.1 K/cumm [facility] Lymphocyte abs 1.9 0.8 - 3.3 K/cumm [facility] Monocyte abs 0.9(H) 0.2 - 0.8 K/cumm [facility] Eosinophil abs 0.2 0.0 - 0.5 K/cumm [facility] Basophil abs 0.1 0.0 - 0.1 K/cumm [facility] Neutrophil pct 76.4 % [facility] Comment: Interpretive Data Percent cell count reference ranges are not reported, since discordance with absolute values may lead to misinterpretation of CBC data. Current Interpretive Data was last revised on 2017. Imm gran pct 0.7 % [facility] Comment: Interpretive Data Percent cell count reference ranges are not reported, since discordance with absolute values may lead to misinterpretation of CBC data. Current Interpretive Data was last revised on 2017. Lymphocyte pct 14.2 % [facility] Comment: Interpretive Data Percent cell count reference ranges are not reported, since discordance with absolute values may lead to misinterpretation of CBC data. Current Interpretive Data was last revised on 2017. Monocyte pct 6.9 % [facility] Comment: Interpretive Data Percent cell count reference ranges are not reported, since discordance with absolute values may lead to misinterpretation of CBC data. Current Interpretive Data was last revised on 2017. Eosinophil pct 1.4 % [facility] Comment: Interpretive Data Percent cell count reference ranges are not reported, since discordance with absolute values may lead to misinterpretation of CBC data. Current Interpretive Data was last revised on 2017. Basophil pct 0.4 % [facility] Comment: Interpretive Data Percent cell count reference ranges are not reported, since discordance with absolute values may lead to misinterpretation of CBC data. Current Interpretive Data was last revised on 2017. Blood 12/01/2023 9:46 PM CDT 12/01/2023 10:07 PM CDT us Maxime Lee MD LAB BLOOD ORDERABLES Final R esult [facility] [place] [address] * (ABNORMAL) Renal function panel (12/01/2023 9:46 PM CDT) Sodium 134(L) 135 - 145 mmol/L Potassium, pl 4.3 3.3 - 4.9 mmol/L [facility] Chloride 100 97 - 110 mmol/L [facility] CO2 25 22 - 32 mmol/L [facility] Anion gap 9 2 - 15 mmol/L [facility] BUN 13 6 - 25 mg/dL [facility] Creatinine 0.78 0.60 - 1.10 mg/dL [facility] Glucose 168 70 - 199 mg/dL [facility] Comment: Interpretive Data Fasting glucose >/= [...] 2022. Calcium 8.5 8.5 - 10.3 mg/dL [facility] Phosphorus, pl 3.0 2.3 - 4.5 mg/dL [facility] Albumin 2.6(L) 3.5 - 5.0 g/dL [facility] Blood 12/01/2023 9:46 PM CDT 12/01/2023 10:07 PM CDT us Suhail Alfredo MD LAB BLOOD ORDERABLES Final Resul t [facility] [place] [address] * (ABNORMAL) CBC with auto differential (12/01/2023 9:46 PM CDT) Pathologist [facility] WBC 13.4(H) 3.8 - 9.9 K/cumm Hgb 8.4(L) 11.9 - 15.5 g/dL [facility] Hct 27.3(L) 35.6 - 45.5 % [facility] Plt 519(H) 150 - 400 K/cumm [facility] MPV 8.6(L) 9.1 - 12.3 fL [facility] RBC 3.26(L) 3.90 - 5.20 M/cumm [facility] MCV 83.7 81.3 - 96.4 fL [facility] MCH 25.8(L) 27.1 - 33.3 pg [facility] MCHC 30.8(L) 32.3 - 35.7 g/dL [facility] RDW CV 18.2(H) 11.1 - 14.9 % [facility] RDW SD 55.2(H) 35.7 - 48.1 fL [facility] NRBC abs 0.00 0.00 - 0.01 K/cumm [facility] Blood 12/01/2023 9:46 PM CDT 12/01/2023 10:07 PM CDT us Maxime Lee MD LAB BLOOD ORDERABLES Final R esult [facility] [place] [address] * (ABNORMAL) POCT glucose (12/01/2023 8:26 PM CDT) Glucose, POC 213(H) 70 - 199 mg/dL Blood 12/01/2023 8:26 PM CDT 12/01/2023 8:26 PM CDT Álvaro Radford MD LAB POCT ORDERABLES - DEVIC E Final Result Performing Organization Address [facility] de Phone Number [facility] [place] [address] * POCT glucose (12/01/2023 4:04 PM CDT) Glucose, POC 152 70 - 199 mg/dL Blood 12/01/2023 4:04 PM CDT 12/01/2023 4:04 PM CDT Álvaro Radford MD LAB POCT ORDERABLES - DEVIC E Final Result Performing Organization Address [facility] de Phone Number [facility] [place] [address] * (ABNORMAL) POCT glucose (12/01/2023 12:02 PM CDT) Glucose, POC 200(H) 70 - 199 mg/dL Blood 12/01/2023 12:0 2 PM CDT 12/01/2023 12:02 PM CDT Álvaro Radford MD LAB POCT ORDERABLES - DEVIC E Final Result Performing Organization Address [facility] [place] [address] * POCT glucose (12/01/2023 8:27 AM CDT) Glucose, POC 124 70 - 199 mg/dL Blood 12/01/2023 8:27 AM CDT 12/01/2023 8:27 AM CDT Álvaro Radford MD LAB POCT ORDERABLES - DEVIC E Final Result Performing Organization Address [facility] Co de Phone Number [facility] [place] [address] * (ABNORMAL) Hepatic function panel (11/30/2023 10:55 PM CDT) Bilirubin, total 0.3 0.1 - 1.2 mg/dL Bilirubin, direct <0.2 0.1 - 0.3 mg/dL [facility] Protein, pl 7.1 6.5 - 8.5 g/dL [facility] Albumin 2.5(L) 3.5 - 5.0 g/dL [facility] Alk phos 78 40 - 130 Units/L [facility] ALT 6(L) 7 - 45 Units/L [facility] AST 16 10 - 45 Units/L [facility] Blood 11/30/2023 10:5 5 PM CDT 12/01/2023 12:14 AM CDT Suhail Alfredo MD LAB BLOOD ORDERABLES Final Resul t Performing Organization Address [facility] Co de Phone Number [facility] [place] [address] * Thyroid Function [place] (11/30/2023 10:55 PM CDT) TSH 2.09 0.30 - 4.20 mcIUnit/mL Blood 11/30/2023 10:5 5 PM CDT 12/01/2023 12:14 AM CDT us Suhail Alfredo MD LAB BLOOD ORDERABLES Final Resul t Performing Organization Address [facility] Co de Phone Number [facility] [place] [address] * Vitamin D 25 hydroxy (11/30/2023 10:55 PM CDT) Vitamin D 25-OH 39 30 - 80 ng/mL Blood 11/30/2023 10:5 5 PM CDT 12/01/2023 12:14 AM CDT us Suhail Alfredo MD LAB BLOOD ORDERABLES Final Resul t GO [facility] [place] [address] * eGFR (11/30/2023 10:55 PM CDT) eGFR [...] LAB BLOOD ORDERABLES Final R esult GO [facility] [place] [address] * (ABNORMAL) Differential, auto (11/30/2023 10:55 PM CDT) Neutrophil abs 13.8(H) 1.5 - 6.5 K/cumm Imm gran abs 0.1 0.0 - 0.1 K/cumm [facility] Lymphocyte abs 2.0 0.8 - 3.3 K/cumm [facility] Monocyte abs 1.1(H) 0.2 - 0.8 K/cumm [facility] Eosinophil abs 0.1 0.0 - 0.5 K/cumm [facility] Basophil abs 0.1 0.0 - 0.1 K/cumm [facility] Neutrophil pct 80.4 % [facility] Comment: Interpretive Data Percent cell count reference ranges are not reported, since discordance with absolute values may lead to misinterpretation of CBC data. Current Interpretive Data was last revised on 2017. Imm gran pct 0.6 % [facility] Comment: Interpretive Data Percent cell count reference ranges are not reported, since discordance with absolute values may lead to misinterpretation of CBC data. Current Interpretive Data was last revised on 2017. Lymphocyte pct 11.5 % [facility] Comment: Interpretive Data Percent cell count reference ranges are not reported, since discordance with absolute values may lead to misinterpretation of CBC data. Current Interpretive Data was last revised on 2017. Monocyte pct 6.4 % [facility] Comment: Interpretive Data Percent cell count reference ranges are not reported, since discordance with absolute values may lead to misinterpretation of CBC data. Current Interpretive Data was last revised on 2017. Eosinophil pct 0.8 % [facility] Comment: Interpretive Data Percent cell count reference ranges are not reported, since discordance with absolute values may lead to misinterpretation of CBC data. Current Interpretive Data was last revised on 2017. Basophil pct 0.3 % [facility] Comment: Interpretive Data Percent cell count reference ranges are not reported, since discordance with absolute values may lead to misinterpretation of CBC data. Current Interpretive Data was last revised on 2017. Blood 11/30/2023 10:5 5 PM CDT 12/01/2023 12:13 AM CDT us Maxime Lee MD LAB BLOOD ORDERABLES Final R esult Performing Organization Address City/[facility] Co de Phone Number [facility] [place] [address] * Phosphorus (11/30/2023 10:55 PM CDT) Phosphorus, pl 3.0 2.3 - 4.5 mg/dL Blood 11/30/2023 10:5 5 PM CDT 12/01/2023 12:14 AM CDT us Maxime Lee MD LAB BLOOD ORDERABLES Final R esult Performing Organization Address [facility] Co de Phone Number [facility] [place] [address] * Magnesium (11/30/2023 10:55 PM CDT) Magnesium 1.8 1.4 - 2.5 mg/dL Blood 11/30/2023 10:5 5 PM CDT 12/01/2023 12:14 AM CDT us Maxime Lee MD LAB BLOOD ORDERABLES Final R esult Performing Organization Address City/[facility] Co de Phone Number [facility] [place] [address] * (ABNORMAL) CBC with auto differential (11/30/2023 10:55 PM CDT) WBC 17.2(H) 3.8 - 9.9 K/cumm Hgb 8.3(L) 11.9 - 15.5 g/dL [facility] Hct 27.5(L) 35.6 - 45.5 % [facility] Plt 382 150 - 400 K/cumm [facility] MPV 9.4 9.1 - 12.3 fL [facility] RBC 3.27(L) 3.90 - 5.20 M/cumm [facility] MCV 84.1 81.3 - 96.4 fL [facility] MCH 25.4(L) 27.1 - 33.3 pg [facility] MCHC 30.2(L) 32.3 - 35.7 g/dL [facility] RDW CV 18.3(H) 11.1 - 14.9 % [facility] RDW SD 56.6(H) 35.7 - 48.1 fL [facility] NRBC abs 0.00 0.00 - 0.01 K/cumm [facility] Blood 11/30/2023 10:5 5 PM CDT 12/01/2023 12:13 AM CDT us Maxime Lee MD LAB BLOOD ORDERABLES Final R esult [facility] [place] [address] * (ABNORMAL) Basic metabolic panel (11/30/2023 10:55 PM CDT) Sodium 135 135 - 145 mmol/L Potassium, pl 3.9 3.3 - 4.9 mmol/L [facility] Chloride 100 97 - 110 mmol/L [facility] CO2 25 22 - 32 mmol/L [facility] Anion gap 10 2 - 15 mmol/L [facility] BUN 10 6 - 25 mg/dL [facility] Creatinine 0.74 0.60 - 1.10 mg/dL [facility] Glucose 141 70 - 199 mg/dL [facility] Comment: Interpretive Data Fasting glucose >/= [...] 2022. Calcium 8.4(L) 8.5 - 10.3 mg/dL [facility] Blood 11/30/2023 10:5 5 PM CDT 12/01/2023 12:14 AM CDT Maxime Lee MD LAB BLOOD ORDERABLES Final R esult Performing Organization Address [facility] Co de Phone Number [facility] [place] [address] * POCT glucose (11/30/2023 9:11 PM CDT) Glucose, POC 147 70 - 199 mg/dL Blood 11/30/2023 9:11 PM CDT 11/30/2023 9:11 PM CDT Suhail Alfredo MD LAB POCT ORDERABLES - DEVICE Fin al Result Performing Organization Address [facility] Co de Phone Number [facility] [place] [address] * POCT glucose (11/30/2023 5:26 PM CDT) Glucose, POC 142 70 - 199 mg/dL Blood 11/30/2023 5:26 PM CDT 11/30/2023 5:26 PM CDT Suhail Alfredo MD LAB POCT ORDERABLES - DEVICE Fin al Result Performing Organization Address [facility] Co de Phone Number [facility] [place] [address] * Infection Prevention Angie auris PCR, surveillance Axilla/Groin (11/30/2023 2:27 PM CDT) Angie auris DNA Not Detected Not Detected [facility] Comment: Interpretive Data Testing performed by [facility] using the [employer] Liaison MDX Angie auris assay. ??This assay detects DNA from Angie auris using Real-Time PCR. ??This assay is laboratory developed and is not cleared by the [facility] Food and Drug Administration. ??The performance characteristics have been verified by the [facility]. Interpretive data was last reviewed on 06/11/2023 Axilla/Groin 11/30/2023 2:27 PM CDT 11/30/2023 3:29 PM CDT Eliseo Chapa MD LAB MICROBIOLOGY - GENE RAL ORDERABLES Final Result Performing Organization Address City/[facility]/ZIP Co de Phone Number [facility] [place] [address] [facility] * (ABNORMAL) POCT glucose (11/30/2023 11:53 AM CDT) Glucose, POC 202(H) 70 - 199 mg/dL Comment:Glu2: RN/MD Notified Glucose comment 1 Glu2: RN/MD Notified [facility] Blood 11/30/2023 11:5 3 AM CDT 11/30/2023 11:53 AM CDT Suhail Alfredo MD LAB POCT ORDERABLES - DEVICE Fin al Result [facility] [place] [address] * POCT glucose (11/30/2023 9:06 AM CDT) Glucose, POC 164 70 - 199 mg/dL Blood 11/30/2023 9:06 AM CDT 11/30/2023 9:06 AM CDT us Suhail Alfredo MD LAB POCT ORDERABLES - DEVICE Fin al Result Performing Organization Address [facility] de Phone Number GO [facility] [place] [address] * (ABNORMAL) Calcium, ionized (11/30/2023 8:15 AM CDT) Calcium, Ionized 4.30(L) 4.50 - 5.10 mg/dL Blood 11/30/2023 8:15 AM CDT 11/30/2023 9:18 AM CDT us Suhail Alfredo MD LAB BLOOD ORDERABLES Final Resul t Performing Organization Address [facility] de Phone Number [facility] [place] [address] * (ABNORMAL) Cortisol (11/30/2023 8:15 AM CDT) [...] Final Resul t Performing Organization Address [facility] de Phone Number GO [facility] [place] [address] * POCT glucose (11/29/2023 9:07 PM CDT) Glucose, POC 173 70 - 199 mg/dL Blood 11/29/2023 9:07 PM CDT 11/29/2023 9:07 PM CDT us Suhail Alfredo MD LAB POCT ORDERABLES - DEVICE Fin al Result Performing Organization Address [facility] de Phone Number GO [facility] Abdullahi [facility] [place] [address] * eGFR (11/29/2023 8:51 PM CDT) eGFR [...] ORDERABLES Final R esult Performing Organization Address City/[facility] Co de Phone Number GO ROBERT [facility] [place] [address] * (ABNORMAL) Differential, auto (11/29/2023 8:51 PM CDT) Neutrophil abs 11.0(H) 1.5 - 6.5 K/cumm Imm gran abs 0.1 0.0 - 0.1 K/cumm [facility] Lymphocyte abs 1.6 0.8 - 3.3 K/cumm [facility] Monocyte abs 1.2(H) 0.2 - 0.8 K/cumm [facility] Eosinophil abs 0.2 0.0 - 0.5 K/cumm [facility] Basophil abs 0.1 0.0 - 0.1 K/cumm [facility] Neutrophil pct 77.4 % [facility] Comment: Interpretive Data Percent cell count reference ranges are not reported, since discordance with absolute values may lead to misinterpretation of CBC data. Current Interpretive Data was last revised on 2017. Imm gran pct 0.6 % [facility] Comment: Interpretive Data Percent cell count reference ranges are not reported, since discordance with absolute values may lead to misinterpretation of CBC data. Current Interpretive Data was last revised on 2017. Lymphocyte pct 11.3 % [facility] Comment: Interpretive Data Percent cell count reference ranges are not reported, since discordance with absolute values may lead to misinterpretation of CBC data. Current Interpretive Data was last revised on 2017. Monocyte pct 8.7 % [facility] Comment: Interpretive Data Percent cell count reference ranges are not reported, since discordance with absolute values may lead to misinterpretation of CBC data. Current Interpretive Data was last revised on 2017. Eosinophil pct 1.6 % [facility] Comment: Interpretive Data Percent cell count reference ranges are not reported, since discordance with absolute values may lead to misinterpretation of CBC data. Current Interpretive Data was last revised on 2017. Basophil pct 0.4 % [facility] Comment: Interpretive Data Percent cell count reference ranges are not reported, since discordance with absolute values may lead to misinterpretation of CBC data. Current Interpretive Data was last revised on 2017. Blood 11/29/2023 8:5 1 PM CDT 11/29/2023 9:12 PM CDT Maxime Lee MD LAB BLOOD ORDERABLES Final R esult Performing Organization Address [facility] Co de Phone Number [facility] [place] [address] * Phosphorus (11/29/2023 8:51 PM CDT) Pathologist [facility] Phosphorus, pl 2.7 2.3 - 4.5 mg/dL Blood 11/29/2023 8:51 PM CDT 11/29/2023 9:12 PM CDT Maxime Lee MD LAB BLOOD ORDERABLES Final R esult Performing Organization Address [facility] Co de Phone Number [facility] [place] [address] * Magnesium (11/29/2023 8:51 PM CDT) [facility] Magnesium 1.7 1.4 - 2.5 mg/dL Blood 11/29/2023 8:51 PM CDT 11/29/2023 9:12 PM CDT Maxime Lee MD LAB BLOOD ORDERABLES Final R esult Performing Organization Address [facility] [place] [address] * (ABNORMAL) CBC with auto differential (11/29/2023 8:51 PM CDT) [facility] WBC 14.2(H) 3.8 - 9.9 K/cumm Hgb 7.5(L) 11.9 - 15.5 g/dL [facility] Hct 24.3(L) 35.6 - 45.5 % [facility] Plt 443(H) 150 - 400 K/cumm [facility] MPV 8.4(L) 9.1 - 12.3 fL [facility] RBC 2.91(L) 3.90 - 5.20 M/cumm [facility] MCV 83.5 81.3 - 96.4 fL [facility] MCH 25.8(L) 27.1 - 33.3 pg [facility] MCHC 30.9(L) 32.3 - 35.7 g/dL [facility] RDW CV 18.3(H) 11.1 - 14.9 % [facility] RDW SD 55.5(H) 35.7 - 48.1 fL [facility] NRBC abs 0.00 0.00 - 0.01 K/cumm [facility] Blood 11/29/2023 8:51 PM CDT 11/29/2023 9:12 PM CDT us Maxime Lee MD LAB BLOOD ORDERABLES Final R esult [facility] [place] [address] * (ABNORMAL) Basic metabolic panel (11/29/2023 8:51 PM CDT) Sodium 131(L) 135 - 145 mmol/L Potassium, pl 4.0 3.3 - 4.9 mmol/L [facility] Chloride 101 97 - 110 mmol/L [facility] CO2 24 22 - 32 mmol/L [facility] Anion gap 6 2 - 15 mmol/L [facility] BUN 12 6 - 25 mg/dL [facility] Creatinine 0.86 0.60 - 1.10 mg/dL [facility] Glucose 163 70 - 199 mg/dL [facility] Comment: Interpretive Data Fasting glucose >/= [...] 2022. Calcium 7.9(L) 8.5 - 10.3 mg/dL [facility] Blood 11/29/2023 8:51 PM CDT 11/29/2023 9:12 PM CDT us Maxime Lee MD LAB BLOOD ORDERABLES Final R esult Performing Organization Address [facility] Co de Phone Number [facility] [place] [address] * POCT glucose (11/29/2023 4:20 PM CDT) Glucose, POC 185 70 - 199 mg/dL Blood 11/29/2023 4:20 PM CDT 11/29/2023 4:20 PM CDT Suhail Alfredo MD LAB POCT ORDERABLES - DEVICE Fin al Result Performing Organization Address [facility] Co de Phone Number [facility] Department [place] [address] * POCT glucose (11/29/2023 8:28 AM CDT) Glucose, POC 137 70 - 199 mg/dL Blood 11/29/2023 8:28 AM CDT 11/29/2023 8:28 AM CDT Suhail Alfredo MD LAB POCT ORDERABLES - DEVICE Fin al Result Performing Organization Address [facility] Co de Phone Number [facility] Department [place] [address] * Mold Blood Culture Blood (11/29/2023 12:58 AM CDT) Report Final Report: No growth Blood 11/29/2023 12:5 8 AM CDT 11/29/2023 4:07 AM CDT Narrative [facility] - 12/29/2023 7:01 AM STUDIO ARTIST Interpretive data: Mold blood cultures are incubated [...] for optimal patient management. Testing performed by [facility] ([phone]). Current interpretive data was last revised on 2023. us Suhail Alfredo MD LAB MICROBIOLOGY - GENERAL ORDER INO Final Result [facility] [place] [address] * eGFR (11/29/2023 12:46 AM CDT) eGFR [...] MD LAB BLOOD ORDERABLES Final R esult [facility] [place] [address] * (ABNORMAL) Differential, auto (11/29/2023 12:46 AM CDT) Neutrophil abs 12.3(H) 1.5 - 6.5 K/cumm Imm gran abs 0.1 0.0 - 0.1 K/[facility] Lymphocyte abs 3.0 0.8 - 3.3 K/cumm [facility] Monocyte abs 1.5(H) 0.2 - 0.8 K/cumm [facility] Eosinophil abs 0.3 0.0 - 0.5 K/cumm [facility] Basophil abs 0.1 0.0 - 0.1 K/cumm [facility] Neutrophil pct 71.4 % [facility] Comment: Interpretive Data Percent cell count reference ranges are not reported, since discordance with absolute values may lead to misinterpretation of CBC data. Current Interpretive Data was last revised on 2017. Imm gran pct 0.8 % [facility] Comment: Interpretive Data Percent cell count reference ranges are not reported, since discordance with absolute values may lead to misinterpretation of CBC data. Current Interpretive Data was last revised on 2017. Lymphocyte pct 17.3 % [facility] Comment: Interpretive Data Percent cell count reference ranges are not reported, since discordance with absolute values may lead to misinterpretation of CBC data. Current Interpretive Data was last revised on 2017. Monocyte pct 8.6 % [facility] Comment: Interpretive Data Percent cell count reference ranges are not reported, since discordance with absolute values may lead to misinterpretation of CBC data. Current Interpretive Data was last revised on 2017. Eosinophil pct 1.5 % [facility] Comment: Interpretive Data Percent cell count reference ranges are not reported, since discordance with absolute values may lead to misinterpretation of CBC data. Current Interpretive Data was last revised on 2017. Basophil pct 0.4 % [facility] Comment: Interpretive Data Percent cell count reference ranges are not reported, since discordance with absolute values may lead to misinterpretation of CBC data. Current Interpretive Data was last revised on 2017. Blood 11/29/2023 12:4 6 AM CDT 11/29/2023 1:06 AM CDT Maxime Lee MD LAB BLOOD ORDERABLES Final R esult Performing Organization Address City/[facility] Co de Phone Number [facility] Department [place] [address] * Phosphorus (11/29/2023 12:46 AM CDT) Phosphorus, pl 3.5 2.3 - 4.5 mg/dL Blood 11/29/2023 12:4 6 AM CDT 11/29/2023 1:06 AM CDT Maxime Lee MD LAB BLOOD ORDERABLES Final R esult [facility] Department [place] [address] * Magnesium (11/29/2023 12:46 AM CDT) Magnesium 2.0 1.4 - 2.5 mg/dL Blood 11/29/2023 12:4 6 AM CDT 11/29/2023 1:06 AM CDT Maxime Lee MD LAB BLOOD ORDERABLES Final R esult [facility] Department [place] [address] * (ABNORMAL) CBC with auto differential (11/29/2023 12:46 AM CDT) WBC 17.2(H) 3.8 - 9.9 K/cumm Hgb 8.0(L) 11.9 - 15.5 g/dL [facility] Hct 27.2(L) 35.6 - 45.5 % [facility] Plt 511(H) 150 - 400 K/cumm [facility] MPV 8.4(L) 9.1 - 12.3 fL [facility] RBC 3.18(L) 3.90 - 5.20 M/cumm [facility] MCV 85.5 81.3 - 96.4 fL [facility] MCH 25.2(L) 27.1 - 33.3 pg [facility] MCHC 29.4(L) 32.3 - 35.7 g/dL [facility] RDW CV 18.0(H) 11.1 - 14.9 % [facility] RDW SD 56.4(H) 35.7 - 48.1 fL [facility] NRBC abs 0.00 0.00 - 0.01 K/cumm [facility] Blood 11/29/2023 12:4 6 AM CDT 11/29/2023 1:06 AM CDT us Maxime Lee MD LAB BLOOD ORDERABLES Final R esult [facility] Department [place] [address] * (ABNORMAL) Basic metabolic panel (11/29/2023 12:46 AM CDT) Pathologist [facility] Sodium 135 135 - 145 mmol/L Potassium, pl 4.3 3.3 - 4.9 mmol/L [facility] Chloride 101 97 - 110 mmol/L [facility] CO2 28 22 - 32 mmol/L [facility] Anion gap 6 2 - 15 mmol/L [facility] BUN 15 6 - 25 mg/dL [facility] Creatinine 0.82 0.60 - 1.10 mg/dL [facility] Glucose 97 70 - 199 mg/dL [facility] Comment: Interpretive Data Fasting glucose >/= [...] 2022. Calcium 8.4(L) 8.5 - 10.3 mg/dL [facility] Blood 11/29/2023 12:4 6 AM CDT 11/29/2023 1:06 AM CDT us Maxime Lee MD LAB BLOOD ORDERABLES Final R esult Performing Organization Address City/[facility]/ZIP Co de Phone Number [facility] Department [place] [address] * POCT glucose (11/28/2023 8:35 PM CDT) Glucose, POC 129 70 - 199 mg/dL Blood 11/28/2023 8:35 PM CDT 11/28/2023 8:35 PM CDT us Suhail Alfredo MD LAB POCT ORDERABLES - DEVICE Fin al Result Performing Organization Address [facility]/ZIP Co de Phone Number [facility] Department [place] [address] * POCT glucose (11/28/2023 4:45 PM CDT) Glucose, POC 127 70 - 199 mg/dL Blood 11/28/2023 4:45 PM CDT 11/28/2023 4:45 PM CDT us Suhail Alfredo MD LAB POCT ORDERABLES - DEVICE Fin al Result Performing Organization Address [facility] Co de Phone Number [facility] [place] [address] * Calcium, ionized (11/28/2023 4:13 PM CDT) Calcium, Ionized 4.54 4.50 - 5.10 mg/dL Blood 11/28/2023 4:13 PM CDT 11/28/2023 4:22 PM CDT us Suhail Alfredo MD LAB BLOOD ORDERABLES Final Resul t Performing Organization Address [facility] Co de Phone Number [facility] [place] [address] * (ABNORMAL) Leukocytes, fecal (11/28/2023 4:13 PM CDT) Pathologist [facility] WBC, fecal Few leukocyte s(A) No leukocytes Comment: Interpretive Data Testing performed by microsopy. Current Interpretive Data was last revised on 2022 Stool 11/28/2023 4:13 PM CDT 11/28/2023 6:17 PM CDT us Suhail Alfredo MD LAB BODY FLUIDS AND STOOLS ORDER INO Final Result Performing Organization Address [facility] [place] [address] * (ABNORMAL) Calprotectin, fecal (11/28/2023 4:13 PM CDT) Calprotectin, fecal >3000(H) <50.0 (Normal) mcg/g [facility] Comment: Interpretation: Abnormal (>120 mcg/g) Test Performed by: [facility] [address] [place] [address] Equalizer Operator: Rach Guillermo Ph.D.; CLIA# [id number] Stool 11/28/2023 4:13 PM CDT 11/28/2023 7:49 PM CDT Suhail Alfredo MD LAB BODY FLUIDS AND STOOLS ORDER INO Final Result Performing Organization Address [facility] Co de Phone Number [facility] [place] [address] [facility] * Histoplasma Antigen Urine (11/28/2023 3:00 PM CDT) Histo Ag Ur result None Detected None Detected Histo Ag Ur interp Negative Negative [facility] Comment: Result Interpretation: Reference interval: None Detected Results reported as ng/mL in 0.20 - 20.00 ng/mL range Results above 20.00 ng/mL are reported as 'Positive, Above the Limit of Quantification' Testing Performed by: [facility], [address] [place] [address] [place] [facility]. This test was developed and its performance characteristics determined by [facility]. It has not been cleared or approved [...] INO Final Result Performing Organization Address [facility] Co de Phone Number [facility] [place] [address] * X-ray chest 1 view (Portable) (11/28/2023 [...] POCT ORDERABLES - DEVICE Fin al Result [facility] [place] [address] * Pneumonia PCR Bronchoalveolar lavage Lobe, left upper (11/28/2023 11:02 AM CDT) C. pneumoniae DNA Not Detected Not Detected Legionella pneumophila DNA Not Detected Not Detected [facility] M. pneumoniae DNA Not Detected Not Detected [facility] Adenovirus DNA Not Detected Not Detected [facility] Coronavirus (229E, OC43, HKU1, NL63) RNA Not Detected Not Detected [facility] Metapneumovirus RNA Not Detected Not Detected [facility] Rhinovirus/Enterov irus RNA Not Detected Not Detected [facility] Influenza A RNA Not Detected Not Detected [facility] Influenza B RNA Not Detected Not Detected [facility] Parainfluenza virus (1-4) RNA Not Detected Not Detected [facility] RSV RNA Not Detected Not Detected [facility] Bronchoalveolar lavage (Lobe, left upper) 11/28/2023 11:02 AM CDT 11/28/2023 2:27 PM CDT Narrative [facility] - 11/28/2023 3:54 PM CDT The [...] rule out infection/co-infection with other organisms. The [employer] Pneumonia Panel is FDA cleared for lower respiratory tract specimens. The performance characteristics of this assay have been determined by [facility]. Current interpretive data was last revised on 2023. Suhail Alfredo MD LAB MICROBIOLOGY - GENERAL ORDER INO Final Result Performing Organization Address [facility] Co de Phone Number [facility] [place] [address] * Cell Differential, Body Fluid (11/28/2023 11:02 AM CDT) Total cells diffed 100 cells Comment: Interpretive Data Unless otherwise specified, the reference range and other method performance specifications have not been established for CSF/Body Fluid tests. ??The test results should be integrated into the clinical context for interpretation. Current interpretive data was last revised on 2018. Neutrophils, fld 62 % [facility] Lymphs, fld 1 % [facility] Monocyte, fld 3 % [facility] Macrophages, fld 34 % [facility] Fluid 11/28/2023 11:0 2 AM CDT 11/28/2023 12:51 PM CDT Suhail Alfredo MD LAB BODY FLUIDS AND STOOLS ORDER INO Final Result Performing Organization Address [facility] Co de Phone Number [facility] [place] [address] * Cell count w/rflx diff, body fluid (11/28/2023 11:02 AM CDT) Specimen type, fld Bronchial Body site, fld Bronch Lavage [facility] Color, fld Straw [facility] Clarity, fld Clear Clear [facility] Nucleated cells, fld 751 /cumm [facility] Comment: Interpretive Data Unless otherwise specified, the reference range and other method performance specifications have not been established for CSF/Body Fluid tests. ??The test results should be integrated into the clinical context for interpretation. Current interpretive data was last revised on 2018. RBC, fld 0 /cumm [facility] Fluid 11/28/2023 11:0 2 AM CDT 11/28/2023 12:51 PM CDT us Suhail Alfredo MD LAB BODY FLUIDS AND STOOLS ORDER INO Final Result [facility] [place] [address] * Pneumonia PCR with aerobic culture and [...] mixed bacterial noah seen on Gram stain. [facility] Report Final Report: Growth indicates upper respiratory noah. [facility] Organism GROWTH INDICATES UPPER RESPIRATORY NOAH. [facility] Bronchoalveolar lavage (Lobe, left upper) 11/28/2023 11:02 AM CDT 11/28/2023 1:12 PM CDT Narrative [facility] - 12/01/2023 3:07 PM CDT When rapid molecular testing results are reported, testing completed using the SMATO[employer] Pneumonia Panel. ??This molecular assay detects: Acinetobacter [...] performance characteristics have been confirmed by the [facility]. ??The performance of the [employer] Pneumonia Panel has not been established for monitoring treatment of infection and bacterial nucleic acids may persist independent of organism viability. Suhail Alfredo MD LAB MICROBIOLOGY - GENERAL ORDER INO Final Result [facility] [place] [address] * Cytomegalovirus (CMV) PCR qualitative Bronchoalveolar lavage Lobe, left upper (11/28/2023 11:02 AM CDT) Pathologist [facility] CMV DNA Not Detected Not Detected [facility] Comment: Interpretive Data: This assay tests for [...] INO Final Result Performing Organization Address [facility] de Phone Number GO [facility] [place] [address] [facility] * Aerobic culture and gram stain Bronchial washing Lobe, left upper (11/28/2023 11:02 AM CDT) Direct Specimen Exam Stain: Cytospin Gram stain shows: Abundant polymorphonuclear leukocytes seen. Abundant squamous epithelial cells seen indicating excessive oral pharyngeal contamination Other cellular material present. Rare mixed bacterial noah seen on Gram stain. Report Final Report: Growth indicates upper respiratory noah. [facility] Organism GROWTH INDICATES UPPER RESPIRATORY NOAH. [facility] Bronchial washing (Lobe, left upper) 11/28/2023 11:02 AM CDT 11/28/2023 12:58 PM CDT N[facility]ative [facility] - 12/01/2023 2:39 PM CDT Testing performed by [facility] ([phone]) Specimens submitted from normally sterile body sites will have all bacterial morphotypes identified. ??Specimens that contain grossly mixed noah and/or are from body sites that are not normally sterile will be examined for Staphylococcus aureus, Pseudomonas aeruginosa, beta-hemolytic strep, vancomycin-resistant Enterococcus and fungus. ??If any of these are isolated, the organism will be reported. Current interpretive data was last revised on 2016. Suhail Alfredo MD LAB MICROBIOLOGY - GENERAL ORDER INO Final Result Performing Organization Address [facility] Co de Phone Number GO [facility] [place] [address] * Pneumocystis DFA Bronchial washing (11/28/2023 11:02 AM CDT) Report Direct Stain Examination - Final: Negative for: Pneumocystis jirovecii Bronchial washing 11/28/2023 11:02 AM CDT 11/28/2023 12:58 PM CDT Narrative GO [facility] - 11/29/2023 1:38 PM CDT The Pneumocystis [...] INO Final Result Performing Organization Address [facility] de Phone Number [facility] [place] [address] * Mycology (fungal) culture Bronchial washing Lobe, left upper (11/28/2023 11:02 AM CDT) Report Final Report: No growth of fungus Bronchial washing (Lobe, left upper) 11/28/2023 11:02 AM CDT 11/28/2023 12:58 PM CDT Narrative [facility] - 12/26/2023 8:05 AM STUDIO ARTIST Testing performed by [facility] ([phone]). us Suhail Alfredo MD LAB MICROBIOLOGY - GENERAL ORDER INO Final Result Performing Organization Address [facility] de Phone Number [facility] [place] [address] * Mycobacteriology (AFB) culture and acid-fast stain Bronchial washing Lobe, left upper (11/28/2023 11:02 AM CDT) Direct Specimen Exam Stain: No Acid-fast bacilli seen Report Final Report: No growth of acid-fast bacilli [facility] Bronchial washing (Lobe, left upper) 11/28/2023 11:02 AM CDT 11/28/2023 12:58 PM CDT Narrative [facility] - 01/26/2024 9:26 AM STUDIO ARTIST Testing performed by [facility] ([phone]). us Suhail Alfredo MD LAB MICROBIOLOGY - GENERAL ORDER INO Final Result Performing Organization Address [facility] [place] [address] * Pneumocystis DFA Bronchoalveolar lavage (11/28/2023 11:02 AM CDT) Report Direct Stain Examination - Final: Negative for: Pneumocystis jirovecii Bronchoalveolar lavage 11/27 11:02 AM CDT 11/28/2023 1:12 PM CDT Narrative GO [facility] - 11/29/2023 1:38 PM CDT The Pneumocystis [...] ORDER INO Final Result Performing Organization Address [facility] de Phone Number [facility] [place] [address] * Mycology (fungal) culture Bronchoalveolar lavage Bronchial (11/28/2023 11:02 AM CDT) Report Final Report: No growth of fungus Bronchoalveolar lavage (Bronchial) 11/28/2023 11:02 AM CDT 11/28/2023 1:12 PM CDT Narrative GO [facility] - 12/26/2023 8:05 AM STUDIO ARTIST Testing performed by [facility] ([phone]). us Suhail Alfredo MD LAB MICROBIOLOGY - GENERAL ORDER INO Final Result Performing Organization Address [facility] de Phone Number [facility] [place] [address] * Mycobacteriology (AFB) culture and acid-fast stain Bronchoalveolar lavage Lobe, left upper (11/28/2023 11:02 AM CDT) Pathologist [facility] Direct Specimen Exam Stain: No Acid-fast bacilli seen Report Final Report: No growth of acid-fast bacilli [facility] Bronchoalveolar lavage (Lobe, left upper) 11/28/2023 11:02 AM CDT 11/28/2023 1:12 PM CDT Narrative [facility] - 01/26/2024 9:26 AM STUDIO ARTIST Testing performed by [facility] ([phone]). us Suhail Alfredo MD LAB MICROBIOLOGY - GENERAL ORDER INO Final Result Performing Organization Address [facility] de Phone Number [facility] Department [place] [address] * Legionella culture Bronchoalveolar lavage (11/28/2023 11:02 AM CDT) Pathologist [facility] Report Final Report: Negative Bronchoalveolar lavage 11/27 11:02 AM CDT 11/28/2023 1:12 PM CDT us Suhail Alfredo MD LAB MICROBIOLOGY - GENERAL ORDER INO Final Result Performing Organization Address [facility] de Phone Number [facility] Department [place] [address] * Adenovirus PCR qualitative Bronchoalveolar lavage (11/28/2023 11:02 AM CDT) Pathologist [facility] Adenovirus DNA Not Detected Not Detected [facility] Comment: Interpretive Data: This assay tests for [...] - GENERAL ORDER INO Final Result [facility] [place] [address] [facility] * Cytology (11/28/2023 10:48 AM CDT) Fluid (Bronch Lavage (Cytology)) 11/28/2023 10:48 AM CDT 11/28/2023 1:10 PM CDT Narrative PATHOLOGY [facility] - 12/02/2023 2:20 PM CDT EPIC results best viewed via link to PDF [facility] [place] [address] Note to Patients: This report may contain [...] Gender: ??F : ??1960 (Age: 63) Address: ??[address] [place] [address] ??[id number] Hospital #: ??[id number] Taken:11/28/2023 Received:11/28/2023 Reported: 12/02/2023 Patient Type: [facility] Inpatient ?? Service: Medical Location: [facility] [address] Physician(s): ??Marlene Pierre M.D. Suhail Alfredo M.D. Kaushal Heath M.D. FINAL DIAGNOSIS Bronchoalveolar lavage, left ? - Negative for malignancy or opportunistic infection 12/02/2023 12:49 By this signature, I attest that the above diagnosis is based upon my personal examination of the slides(and/or other material indicated in the diagnosis). Lindsay Martinez M.D. Report Electronically Reviewed and Signed Out By ??Lindsay Martinez M.D. 12/02/2023 14:20:18 John Ortega [facility](ASCP) Gross Description A. ??Bal, left: ? [...] Surgical Pathology and Flow Cytometry Departments at [facility] as part of an ongoing quality management coordinator program and in compliance with federally mandated [...] Surgical Pathology and Flow Cytometry Departments of [facility]. ??It has not been cleared or approved by the U. S. Food and Drug Administration. Suhail Alfredo MD LAB CYTOLOGY ORDERABLES Final Re sult PATHOLOGY [facility] 3rd Floor [place], [place] [phone] * Surgical pathology (11/28/2023 10:48 AM CDT) Tissue (Lung Biopsy) 11/28/2023 10:48 AM CDT 11/28/2023 1:09 PM CDT Narrative PATHOLOGY [facility] - 12/02/2023 11:21 AM CDT EPIC results best viewed via link to PDF [facility] [place] [address] Note to Patients: This report may contain [...] Gender: ??F : ??1960 (Age: 63) Address: ??[address] [place] [address] ??[id number] Hospital #: ??[id number] Taken:11/28/2023 Received:11/28/2023 Reported: 12/02/2023 Patient Type: [facility] Inpatient ?? Service: Medical Location: [place] [id number] Physician(s): ??Marlene Pierre M.D. Suhail Alfredo M.D. [...] x 0.1 cm. Labeled A1. Jar 0. [facility]/11/28/2023 14:59 PA(s): Lakeshia Raymond By this [...] Bacteria broad-range PCR test was performed at [facility]. ??[facility], [address], [address],. [place] [address] The performance characteristics of some immunohistochemical stains, fluorescence in-situ hybridization tests and immunophenotyping by flow cytometry cited in this report (if any) were determined by the Surgical Pathology and Flow Cytometry Departments at [facility] as part of an ongoing quality management coordinator program and in compliance with federally mandated [...] Surgical Pathology and Flow Cytometry Departments of [facility]. ??It has not been cleared or approved by the U. S. Food and Drug Administration. IMAGES AND SCANNED DOCUMENTS, IF INCLUDED, ONLY VIEWABLE IN PDF VERSION OF REPORT us Suhail Alfredo MD LAB PATHOLOGY ORDERABLES Final R esult PATHOLOGY [facility] 3rd Floor [place], [place] [phone] * Bronchoscopy - (11/28/2023 9:47 AM CDT) Anatomical Region Laterality Modality Other Narrative Procedure Note Ricky Vasquez MD - 11/28/2023 9:47 AM CDT [facility] Respiratory Care Patient Name: Darius Russo Procedure Date: 11/28/2023 9:47 AM Date of : 1960 Admit Type: Inpatient Age: 63 Room: [facility] Gender: Female Note Status: Finalized Procedure: Bronchoscopy [...] Conscious sedation note: I personally provided direct [id number] monitoring of conscious sedation administered by an [...] Fin al Result Performing Organization Address [facility] Co de Phone Number GO ROBERT Abdullahi [facility] [place] [address] * eGFR (11/28/2023 1:10 AM CDT) eGFR [...] Final R esult Performing Organization Address [facility] Co de Phone Number GO ROBERT Abdullahi [facility] Department [place] [address] * (ABNORMAL) Differential, auto (11/28/2023 1:10 AM CDT) Neutrophil abs 11.0(H) 1.5 - 6.5 K/cumm Imm gran abs 0.1 0.0 - 0.1 K/cumm [facility] Lymphocyte abs 1.6 0.8 - 3.3 K/cumm [facility] Monocyte abs 1.5(H) 0.2 - 0.8 K/cumm [facility] Eosinophil abs 0.1 0.0 - 0.5 K/cumm [facility] Basophil abs 0.1 0.0 - 0.1 [facility] Neutrophil pct 76.5 % [facility] Comment: Interpretive Data Percent cell count reference ranges are not reported, since discordance with absolute values may lead to misinterpretation of CBC data. Current Interpretive Data was last revised on 2017. Imm gran pct 0.8 % [facility] Comment: Interpretive Data Percent cell count reference ranges are not reported, since discordance with absolute values may lead to misinterpretation of CBC data. Current Interpretive Data was last revised on 2017. Lymphocyte pct 11.4 % [facility] Comment: Interpretive Data Percent cell count reference ranges are not reported, since discordance with absolute values may lead to misinterpretation of CBC data. Current Interpretive Data was last revised on 2017. Monocyte pct 10.1 % [facility] Comment: Interpretive Data Percent cell count reference ranges are not reported, since discordance with absolute values may lead to misinterpretation of CBC data. Current Interpretive Data was last revised on 2017. Eosinophil pct 0.8 % [facility] Comment: Interpretive Data Percent cell count reference ranges are not reported, since discordance with absolute values may lead to misinterpretation of CBC data. Current Interpretive Data was last revised on 2017. Basophil pct 0.4 % [facility] Comment: Interpretive Data Percent cell count reference ranges are not reported, since discordance with absolute values may lead to misinterpretation of CBC data. Current Interpretive Data was last revised on 2017. Blood 11/28/2023 1:10 AM CDT 11/28/2023 1:29 AM CDT Maxime Lee MD LAB BLOOD ORDERABLES Final R esult Performing Organization Address [facility] Co de Phone Number [facility] [place] [address] * aPTT (11/28/2023 1:10 AM CDT) aPTT 30 28 - 38 sec Comment: Interpretive Data Heparin therapeutic range: 66.0 - 100.0 seconds. Range based on correlation with therapeutic heparin activity range of 0.3 - 0.7 Units/mL. Current interpretive data was last revised on 2022. Blood 11/28/2023 1:10 AM CDT 11/28/2023 1:28 AM CDT Suhail Alfredo MD LAB BLOOD ORDERABLES Final Resul t Performing Organization Address [facility] de Phone Number [facility] [place] [address] * (ABNORMAL) Protime-INR (11/28/2023 1:10 AM CDT) PT 17.7(H) 9.7 - 13.0 sec INR 1.62(H) 0.90 - 1.20 [facility] Comment: Interpretive data Oral anticoagulant therapeutic ranges: Venous thromboembolism prophylaxis or treatment: 2.0-3.0 CARDIOLOGY Standard range: 2.0-3.0 High-intensity range: 2.5-3.5 Refer to indication-specific guidelines for appropriate target ranges for prosthetic heart valve replacement. Current interpretive data was last revised on 2019. Blood 11/28/2023 1:10 AM CDT 11/28/2023 1:28 AM CDT Suhail Alfredo MD LAB BLOOD ORDERABLES Final Resul t Performing Organization Address [facility] de Phone Number [facility] [place] [address] * Type and screen (11/28/2023 1:10 AM CDT) ABO Rh O Positive Maira, indirect Negative [facility] Blood 11/28/2023 1:10 AM CDT 11/28/2023 1:49 AM CDT Narrative [facility] - 11/28/2023 2:35 AM CDT Has the patient had Daratumumab or Isatuximab in the past 6 months?->Unknown Suhail Alfredo MD LAB BLOOD BANK TEST ORDERABLES F inal Result Performing Organization Address City/[facility]/[place] [address] * Aspergillus galactomannan antigen Blood (11/28/2023 1:10 AM CDT) Pathologist [facility] Aspergillus galactomannan Ag <0.500 <0.5 Index [facility] Comment: ADDITIONAL INFORMATION This is a qualitative test and the resulted index value is not indicative of disease severity. ??Serial testing is recommended for patients at high risk for invasive aspergillosis. This assay was performed using the FDA-cleared [employer] Aspergillus Galactomannan EIA. Test Performed by: [address] [address] Equalizer Operator: Rach Guillermo Ph.D.; CLIA# [id number] Blood 11/28/2023 1:10 AM CDT 11/28/2023 1:51 AM CDT Suhail Alfredo MD LAB MICROBIOLOGY - GENERAL ORDER INO Final Result Performing Organization Address City/[facility]/[place] [address] [facility] * Osmolality, blood (11/28/2023 1:10 AM CDT) Osmo 281 275 - 300 mOsm/kg Blood 11/28/2023 1:10 AM CDT 11/28/2023 1:29 AM CDT us Suhail Alfredo MD LAB BLOOD ORDERABLES Final Resul t Performing Organization Address [facility] Co de Phone Number [facility] Department [place] [address] * (ABNORMAL) Erythrocyte sedimentation rate (11/28/2023 1:10 AM CDT) Pathologist [facility] Erythrocyte sedimentation rate 97(H) 1 - 30 mm/hr Blood 11/28/2023 1:10 AM CDT 11/28/2023 1:30 AM CDT us Suhail Alfredo MD LAB BLOOD ORDERABLES Final Resul t Performing Organization Address [facility] de Phone Number [facility] [place] [address] * (ABNORMAL) CRP (acute phase) (11/28/2023 1:10 AM CDT) CRP 173.3(H) <=10.0 mg/L Blood 11/28/2023 1:10 AM CDT 11/28/2023 1:29 AM CDT us Suhail Alfredo MD LAB BLOOD ORDERABLES Final Resul t Performing Organization Address [facility] de Phone Number [facility] [place] [address] * Phosphorus (11/28/2023 1:10 AM CDT) Phosphorus, pl 3.5 2.3 - 4.5 mg/dL Blood 11/28/2023 1:10 AM CDT 11/28/2023 1:29 AM CDT Maxime Lee MD LAB BLOOD ORDERABLES Final R esult Performing Organization Address City/[facility] Co de Phone Number [facility] [place] [address] * Magnesium (11/28/2023 1:10 AM CDT) [facility] Magnesium 2.0 1.4 - 2.5 mg/dL Blood 11/28/2023 1:10 AM CDT 11/28/2023 1:29 AM CDT us Maxime Lee MD LAB BLOOD ORDERABLES Final R esult Performing Organization Address [facility] de Phone Number [facility] Department [place] [address] * (ABNORMAL) CBC with auto differential (11/28/2023 1:10 AM CDT) [facility] WBC 14.4(H) 3.8 - 9.9 K/cumm Hgb 7.8(L) 11.9 - 15.5 g/dL [facility] Hct 25.5(L) 35.6 - 45.5 % [facility] Plt 434(H) 150 - 400 K/cumm [facility] MPV 8.7(L) 9.1 - 12.3 fL [facility] RBC 3.04(L) 3.90 - 5.20 M/cumm [facility] MCV 83.9 81.3 - 96.4 fL [facility] MCH 25.7(L) 27.1 - 33.3 pg [facility] MCHC 30.6(L) 32.3 - 35.7 g/dL [facility] RDW CV 17.9(H) 11.1 - 14.9 % [facility] RDW SD 54.8(H) 35.7 - 48.1 fL [facility] NRBC abs 0.00 0.00 - 0.01 K/cumm [facility] Blood 11/28/2023 1:10 AM CDT 11/28/2023 1:29 AM CDT us Maxime Lee MD LAB BLOOD ORDERABLES Final R esult Performing Organization Address [facility] Co de Phone Number [facility] Department [place] [address] * (ABNORMAL) Basic metabolic panel (11/28/2023 1:10 AM CDT) Sodium 134(L) 135 - 145 mmol/L Potassium, pl 4.1 3.3 - 4.9 mmol/L [facility] Chloride 98 97 - 110 mmol/L [facility] CO2 28 22 - 32 mmol/L [facility] Anion gap 8 2 - 15 mmol/L [facility] BUN 15 6 - 25 mg/dL [facility] Creatinine 0.78 0.60 - 1.10 mg/dL [facility] Glucose 153 70 - 199 mg/dL [facility] Comment: Interpretive Data Fasting glucose >/= [...] 2022. Calcium 8.3(L) 8.5 - 10.3 mg/dL [facility] Blood 11/28/2023 1:10 AM CDT 11/28/2023 1:29 AM CDT us Maxime Lee MD LAB BLOOD ORDERABLES Final R esult Performing Organization Address [facility] Co de Phone Number [facility] Department [place] [address] * Osmolality, urine (11/27/2023 9:00 PM CDT) Osmo, ur 644 mOsm/kg Urine 11/27/2023 9:00 PM CDT 11/28/2023 6:41 PM CDT us Suhail Alfredo MD LAB URINE ORDERABLES Final Resul t Performing Organization Address [facility] de Phone Number [facility] [place] [address] * Chloride, urine, random (11/27/2023 9:00 PM CDT) Chloride, ur 63 mmol/L Comment: Interpretive Data No reference range established. Current interpretive data was last revised 2018. Urine (Urine, Clean Catch) 11/27/2023 9:00 PM CDT 11/28/2023 6:41 PM CDT us Suhail Alfredo MD LAB URINE ORDERABLES Final Resul t Performing Organization Address [facility] de Phone Number [facility] [place] [address] * Potassium, urine, random (11/27/2023 9:00 PM CDT) Potassium conc, ur 85.6 mmol/L Comment: Interpretive Data No reference range established. Current interpretive data was last revised 2018. Urine (Urine, Clean Catch) 11/27/2023 9:00 PM CDT 11/28/2023 6:41 PM CDT us Suhail Alfredo MD LAB URINE ORDERABLES Final Resul t Performing Organization Address [facility] de Phone Number [facility] [place] [address] * Sodium, urine, random (11/27/2023 9:00 PM CDT) Sodium, ur 74 mmol/L Comment: Interpretive Data No reference range established. Current interpretive data was last revised 2018. Urine (Urine, Clean Catch) 11/27/2023 9:00 PM CDT 11/28/2023 6:41 PM CDT us Suhail Alfredo MD LAB URINE ORDERABLES Final Resul t Performing Organization Address [facility] de Phone Number [facility] [place] [address] * POCT glucose (11/27/2023 7:46 PM CDT) Glucose, POC 170 70 - 199 mg/dL Blood 11/27/2023 7:46 PM CDT 11/27/2023 7:46 PM CDT us Suhail Alfredo MD LAB POCT ORDERABLES - DEVICE Fin al Result Performing Organization Address [facility] de Phone Number [facility] [place] [address] * POCT glucose (11/27/2023 5:35 PM CDT) Glucose, POC 145 70 - 199 mg/dL Blood 11/27/2023 5:35 PM CDT 11/27/2023 5:35 PM CDT us Suhail Alfredo MD LAB POCT ORDERABLES - DEVICE Fin al Result Performing Organization Address [facility] de Phone Number [facility] [place] [address] * POCT glucose (11/27/2023 11:45 AM CDT) Glucose, POC 179 70 - 199 mg/dL Blood 11/27/2023 11:4 5 AM CDT 11/27/2023 11:45 AM CDT us Suhail Alfredo MD LAB POCT ORDERABLES - DEVICE Fin al Result Performing Organization Address [facility] de Phone Number [facility] [place] [address] * POCT glucose (11/27/2023 7:54 AM CDT) Glucose, POC 141 70 - 199 mg/dL Blood 11/27/2023 7:54 AM CDT 11/27/2023 7:54 AM CDT us Suhail Alfredo MD LAB POCT ORDERABLES - DEVICE Fin al Result Performing Organization Address [facility] Phone Number [facility] [place] [address] * Blastomyces antibody, EIA, serum Blood (11/27/2023 12:54 AM CDT) Pathologist [facility] Blastomyces Antibody Negative Negative [place] [facility] Comment: A single negative result does not exclude the diagnosis of blastomycosis. ??Repeat testing on a new sample in 7-14 days if clinically indicated. Test Performed by: [place] [address] Equalizer Operator: Rach Guillermo Ph.D.; CLIA# [id number] Blood 11/27/2023 12:5 4 AM CDT 11/27/2023 1:05 AM CDT us Suhail Alfredo MD LAB MICROBIOLOGY - GENERAL ORDER INO Final Result Performing Organization Address [facility] Phone Number [facility] [place] [address] [place] [facility] * HIV 1/2 Antibody plus p24 Antigen Blood (11/27/2023 12:53 AM CDT) Pathologist [facility] HIV 1/2 ab + p24 ag Nonreactive [...] INO Final Result Performing Organization Address [facility] de Phone Number GO [facility] [place] [address] * Cryptococcal Antigen, Serum Blood (11/27/2023 12:53 AM CDT) [facility] Cryptococcus ag, Serum Negative Negative Comment: The cryptococcal antigen test was performed using the IMMY CrAg Lateral Flow Assay. This assay is [...] INO Final Result Performing Organization Address [facility] Co de Phone Number GO [facility] [place] [address] * Histoplasma Antibody Blood (11/27/2023 12:53 AM CDT) Pathologist [facility] Histoplasma Ab, yeast CF Negative Negative [place] [facility] Histoplasma Ab, Immunodiffusion Negative Negative [facility] Comment: A negative complement fixation and immunodiffusion (CF/ID) result does not exclude the diagnosis of histoplasmosis. ?? Repeat testing by CF/ID in 1-2 weeks if clinically indicated. Test Performed by: [facility] [address] [place] [address] Equalizer Operator: Rach Guillermo Ph.D.; CLIA# [id number] Blood 11/27/2023 12:5 3 AM CDT 11/27/2023 1:05 AM CDT us Suhail Alfredo MD LAB MICROBIOLOGY - GENERAL ORDER INO Final Result Performing Organization Address City/[facility]/ZIP Co de Phone Number [facility] [place] [address] [facility] * Mycobacteriology (AFB) blood culture Blood (11/27/2023 12:53 AM CDT) Report Final Report: No growth Blood 11/27/2023 12:5 3 AM CDT 11/27/2023 1:45 AM CDT Narrative [facility] - 01/08/2024 7:01 AM [facility] Two separate sites Interpretive data: Mycobacterial blood [...] for optimal patient management. Testing performed by [facility] Microbiology Laboratory ([phone]). Current interpretive data was last revised on 2023. us Suhail Alfredo MD LAB MICROBIOLOGY - GENERAL ORDER INO Final Result Performing Organization Address City/[facility]/ZIP Co de Phone Number [facility] Department [place] [address] * Mycobacteriology (AFB) blood culture Blood (11/27/2023 12:53 AM CDT) Report Final Report: No growth Blood 11/27/2023 12:5 3 AM CDT 11/27/2023 1:45 AM CDT Narrative GO [facility] - 01/08/2024 7:01 AM [employer]UD[employer] Two separate sites Interpretive data: Mycobacterial blood [...] for optimal patient management. Testing performed by [facility] Microbiology Laboratory ([phone]). Current interpretive data was last revised on 2023. Suhail Alfredo MD LAB MICROBIOLOGY - GENERAL ORDER INO Final Result [facility] [place] [address] * Blood culture Blood (11/27/2023 12:53 AM CDT) Report Final Report: No growth Blood 11/27/2023 12:5 3 AM CDT 11/27/2023 1:38 AM CDT Dung STILES [facility] - 12/01/2023 7:00 AM CDT From a [...] organism identification may be performed using the [employer] Gram-Positive Blood Culture Assay. This assay detects microbial DNA in positive blood culture broth via hybridization of target DNA to capture oligonucleotides on a microarray. This assay has been cleared by the [place] Food and Drug Administration and its performance characteristics have been verified by the [facility] Microbiology Laboratory. 5. ?For questions about this culture, contact the Microbiology Laboratory at [phone]. Interpretive data was last revised on 2019. Suhail Alfredo MD LAB MICROBIOLOGY - GENERAL ORDER INO Final Result [facility] Department [place] [address] * Blood culture Blood (11/27/2023 12:53 AM CDT) Report Final Report: No growth Blood 11/27/2023 12:5 3 AM CDT 11/27/2023 1:38 AM CDT Narrative GO [facility] - 12/01/2023 7:00 AM CDT Collection->Peripheral 1. [...] organism identification may be performed using the [employer] Gram-Positive Blood Culture Assay. This assay detects microbial DNA in positive blood culture broth via hybridization of target DNA to capture oligonucleotides on a microarray. This assay has been cleared by the [place] Food and Drug Administration and its performance characteristics have been verified by the [facility] Microbiology Laboratory. 5. ?For questions about this culture, contact the Microbiology Laboratory at [phone]. Interpretive data was last revised on 2019. Suhail Alfredo MD LAB MICROBIOLOGY - GENERAL ORDER INO Final Result Performing Organization Address City/[facility] Co de Phone Number GO [facility] Department [place] [address] * (ABNORMAL) POCT glucose (11/26/2023 10:20 PM CDT) Glucose, POC 223(H) 70 - 199 mg/dL Blood 11/26/2023 10:2 0 PM CDT 11/26/2023 10:20 PM CDT Suhail Alfredo MD LAB POCT ORDERABLES - DEVICE Fin al Result Performing Organization Address [facility] de Phone Number GO [facility] Department [place] [address] * eGFR (11/26/2023 9:58 PM CDT) eGFR [...] ORDERABLES Final R esult Performing Organization Address City/State/[facility] Co de Phone Number [facility] [place] [address] * (ABNORMAL) Differential, auto (11/26/2023 9:58 PM CDT) Neutrophil abs 16.6(H) 1.5 - 6.5 K/cumm Imm gran abs 0.2(H) 0.0 - 0.1 K/cumm [facility] Lymphocyte abs 1.7 0.8 - 3.3 K/cumm [facility] Monocyte abs 2.0(H) 0.2 - 0.8 K/cumm [facility] Eosinophil abs 0.0 0.0 - 0.5 K/cumm [facility] Basophil abs 0.1 0.0 - 0.1 K/cumm [facility] Neutrophil pct 80.6 % [facility] Comment: Interpretive Data Percent cell count reference ranges are not reported, since discordance with absolute values may lead to misinterpretation of CBC data. Current Interpretive Data was last revised on 2017. Imm gran pct 0.9 % [facility] Comment: Interpretive Data Percent cell count reference ranges are not reported, since discordance with absolute values may lead to misinterpretation of CBC data. Current Interpretive Data was last revised on 2017. Lymphocyte pct 8.3 % [facility] Comment: Interpretive Data Percent cell count reference ranges are not reported, since discordance with absolute values may lead to misinterpretation of CBC data. Current Interpretive Data was last revised on 2017. Monocyte pct 9.7 % [facility] Comment: Interpretive Data Percent cell count reference ranges are not reported, since discordance with absolute values may lead to misinterpretation of CBC data. Current Interpretive Data was last revised on 2017. Eosinophil pct 0.2 % [facility] Comment: Interpretive Data Percent cell count reference ranges are not reported, since discordance with absolute values may lead to misinterpretation of CBC data. Current Interpretive Data was last revised on 2017. Basophil pct 0.3 % [facility] Comment: Interpretive Data Percent cell count reference ranges are not reported, since discordance with absolute values may lead to misinterpretation of CBC data. Current Interpretive Data was last revised on 2017. Blood 11/26/2023 9:58 PM CDT 11/26/2023 11:34 PM CDT us Maxime Lee MD LAB BLOOD ORDERABLES Final R esult Performing Organization Address [facility] Co de Phone Number [facility] [place] [address] * Phosphorus (11/26/2023 9:58 PM CDT) Phosphorus, pl 3.5 2.3 - 4.5 mg/dL Blood 11/26/2023 9:58 PM CDT 11/26/2023 11:34 PM CDT us Maxime Lee MD LAB BLOOD ORDERABLES Final R esult Performing Organization Address [facility]/ZIP Co de Phone Number [facility] [place] [address] * Magnesium (11/26/2023 9:58 PM CDT) [facility] Magnesium 1.8 1.4 - 2.5 mg/dL Blood 11/26/2023 9:58 PM CDT 11/26/2023 11:34 PM CDT us Maxime Lee MD LAB BLOOD ORDERABLES Final R esult Performing Organization Address City/[facility]/ZIP Co de Phone Number [facility] [place] [address] * (ABNORMAL) CBC with auto differential (11/26/2023 9:58 PM CDT) [facility] WBC 20.6(H) 3.8 - 9.9 K/cumm Hgb 8.4(L) 11.9 - 15.5 g/dL [facility] Hct 27.2(L) 35.6 - 45.5 % [facility] Plt 459(H) 150 - 400 K/cumm [facility] MPV 9.2 9.1 - 12.3 fL [facility] RBC 3.31(L) 3.90 - 5.20 M/cumm [facility] MCV 82.2 81.3 - 96.4 fL [facility] MCH 25.4(L) 27.1 - 33.3 pg [facility] MCHC 30.9(L) 32.3 - 35.7 g/dL [facility] RDW CV 17.9(H) 11.1 - 14.9 % [facility] RDW SD 54.5(H) 35.7 - 48.1 fL [facility] NRBC abs 0.00 0.00 - 0.01 K/cumm [facility] Blood 11/26/2023 9:58 PM CDT 11/26/2023 11:34 PM CDT us Maxime Lee MD LAB BLOOD ORDERABLES Final R esult [facility] Department [place] [address] * (ABNORMAL) Basic metabolic panel (11/26/2023 9:58 PM CDT) Sodium 127(L) 135 - 145 mmol/L Potassium, pl 4.3 3.3 - 4.9 mmol/L [facility] Chloride 90(L) 97 - 110 mmol/L [facility] CO2 26 22 - 32 mmol/L [facility] Anion gap 11 2 - 15 mmol/L [facility] BUN 19 6 - 25 mg/dL [facility] Creatinine 0.91 0.60 - 1.10 mg/dL [facility] Glucose 186 70 - 199 mg/dL [facility] Comment: Interpretive Data Fasting glucose >/= [...] 2022. Calcium 8.6 8.5 - 10.3 mg/dL [facility] Blood 11/26/2023 9:58 PM CDT 11/26/2023 11:34 PM CDT us Maxime Lee MD LAB BLOOD ORDERABLES Final R esult [facility] [place] [address] * POCT glucose (11/26/2023 5:27 PM CDT) Glucose, POC 141 70 - 199 mg/dL Blood 11/26/2023 5:27 PM CDT 11/26/2023 5:27 PM CDT us Suhail Alfredo MD LAB POCT ORDERABLES - DEVICE Fin al Result GO ROBERT [facility] [place] [address] * CT Chest Abdomen Pelvis W Contrast [...] POCT ORDERABLES - DEVICE Fin al Result [facility] [place] [address] * POCT glucose (11/26/2023 9:06 AM CDT) Glucose, POC 145 70 - 199 mg/dL Blood 11/26/2023 9:06 AM CDT 11/26/2023 9:06 AM CDT us Suhail Alfredo MD LAB POCT ORDERABLES - DEVICE Fin al Result Performing Organization Address [facility] Co de Phone Number [facility] [place] [address] * Infection Prevention VRE Culture Stool (11/26/2023 1:10 AM CDT) Report Final Report: Negative Stool 11/26/2023 1:10 AM CDT 11/26/2023 6:20 AM CDT [facility]ative [facility] - 11/28/2023 7:46 AM CDT Surveillance culture for Infection Prevention purposes only; results indicate colonization, not infection requiring treatment. Testing performed by [facility] ([phone]). us Suhail Alfredo MD LAB MICROBIOLOGY - GENERAL ORDER INO Final Result Performing Organization Address [facility] [place] [address] * C. difficile testing Stool (11/26/2023 1:10 AM CDT) [facility] Result Negative Negative Toxin Result Negative Negative [facility] C. diff result Negative, free toxin Negative, free toxin [facility] C. diff interp Negative for toxigenic Clostridioides (Clostridium) difficile. Analysis was performed using a glutamate dehydrogenase antigen detection assay combined with a C. difficile toxin detection assay. [facility] Stool 11/26/2023 1:10 AM CDT 11/26/2023 4:04 AM CDT us Maxime Lee MD LAB MICROBIOLOGY - GENERAL O RDERABLES Final Result Performing Organization Address [facility] [place] [address] * eGFR (11/25/2023 10:52 PM CDT) eGFR 81 >=60 mL/min/1. 73 [...] MD LAB BLOOD ORDERABLES Final R esult [facility] Department [place] [address] * Type and screen (11/25/2023 10:52 PM CDT) ABO Rh O Positive Maira, indirect Negative GO ROBERT Blood 11/25/2023 10:5 2 PM CDT 11/25/2023 11:07 PM CDT Narrative [facility] - 11/26/2023 12:00 AM CDT Has the patient had Daratumumab or Isatuximab in the past 6 months?->Unknown Maxime Lee MD LAB BLOOD BANK TEST ORDERABL ES Final Result Performing Organization Address [facility] Co de Phone Number [facility] [place] [address] * (ABNORMAL) Protime-INR (11/25/2023 10:52 PM CDT) PT 18.8(H) 9.7 - 13.0 sec INR 1.72(H) 0.90 - 1.20 [facility] Comment: Interpretive data Oral anticoagulant therapeutic [...] ORDERABLES Final R esult Performing Organization Address [facility] Co de Phone Number [facility] [place] [address] * aPTT (11/25/2023 10:52 PM CDT) aPTT [...] ORDERABLES Final R esult Performing Organization Address City/[facility] Co de Phone Number [facility] [place] [address] * Phosphorus (11/25/2023 10:52 PM CDT) [facility] Phosphorus, pl 3.0 2.3 - 4.5 mg/dL Blood 11/25/2023 10:5 2 PM CDT 11/25/2023 11:05 PM CDT Maxime Lee MD LAB BLOOD ORDERAB[place] [address] * Magnesium (11/25/2023 10:52 PM CDT) [facility] Magnesium 2.0 1.4 - 2.5 mg/dL Blood 11/25/2023 10:5 2 PM CDT 11/25/2023 11:05 PM CDT us Maxime Lee MD LAB BLOOD ORDERABLES Final R esult Performing Organization Address [facility] [place] [address] * (ABNORMAL) CBC without differential (11/25/2023 10:52 PM CDT) [facility] WBC 16.6(H) 3.8 - 9.9 K/cumm Hgb 8.6(L) 11.9 - 15.5 g/dL [facility] Hct 28.1(L) 35.6 - 45.5 % [facility] Plt 430(H) 150 - 400 K/cumm [facility] MPV 9.0(L) 9.1 - 12.3 fL [facility] RBC 3.39(L) 3.90 - 5.20 M/cumm [facility] MCV 82.9 81.3 - 96.4 fL [facility] MCH 25.4(L) 27.1 - 33.3 pg [facility] MCHC 30.6(L) 32.3 - 35.7 g/dL [facility] RDW CV 17.9(H) 11.1 - 14.9 % [facility] RDW SD 54.2(H) 35.7 - 48.1 fL [facility] NRBC abs 0.00 0.00 - 0.01 K/cumm [facility] Blood 11/25/2023 10:5 2 PM CDT 11/25/2023 11:05 PM CDT us Maxime Lee MD LAB BLOOD ORDERABLES Final R esult [facility] Department [place] [address] * (ABNORMAL) Basic metabolic panel (11/25/2023 10:52 PM CDT) Sodium 130(L) 135 - 145 mmol/L Potassium, pl 4.6 3.3 - 4.9 mmol/L [facility] Chloride 95(L) 97 - 110 mmol/L [facility] CO2 26 22 - 32 mmol/L [facility] Anion gap 9 2 - 15 mmol/L [facility] BUN 18 6 - 25 mg/dL [facility] Creatinine 0.81 0.60 - 1.10 mg/dL [facility] Glucose 128 70 - 199 mg/dL [facility] Comment: Interpretive Data Fasting glucose >/= [...] 2022. Calcium 8.7 8.5 - 10.3 mg/dL [facility] Blood 11/25/2023 10:5 2 PM CDT 11/25/2023 11:05 PM CDT us Maxime Lee MD LAB BLOOD ORDERABLES Final R esult [facility] [place] [address] * POCT glucose (11/25/2023 9:45 PM CDT) [facility] Glucose, POC 147 70 - 199 mg/dL Blood 11/25/2023 9:45 PM CDT 11/25/2023 9:45 PM CDT us Maxime Lee MD LAB POCT ORDERABLES - DEVICE Final Result Performing Organization Address [facility] Co de Phone Number [facility] [place] [address] * Respiratory pathogen panel Nasopharyngeal (11/25/2023 9:40 PM CDT) [facility] Influenza A RNA Not Detected Not Detected Influenza B RNA Not Detected Not Detected [facility] RSV RNA Not Detected Not Detected [facility] COVID-19 RNA Not Detected Not Detected [facility] Coronavirus 229E RNA Not Detected Not Detected [facility] Coronavirus HKU1 RNA Not Detected Not Detected [facility] Coronavirus NL63 RNA Not Detected Not Detected [facility] Coronavirus OC43 RNA Not Detected Not Detected [facility] Adenovirus DNA Not Detected Not Detected [facility] Metapneumovirus RNA Not Detected Not Detected [facility] Rhinovirus/Enterov irus RNA Not Detected Not Detected [facility] Parainfluenza 1 RNA Not Detected Not Detected [facility] Parainfluenza 2 RNA Not Detected Not Detected [facility] Parainfluenza 3 RNA Not Detected Not Detected [facility] Parainfluenza 4 RNA Not Detected Not Detected [facility] B. pertussis DNA Not Detected Not Detected [facility] B. parapertussis DNA Not Detected Not Detected [facility] C. pneumoniae DNA Not Detected Not Detected [facility] M. pneumoniae DNA Not Detected Not Detected [facility] Nasopharyngeal 11/25/2023 9: 40 PM CDT 11/25/2023 10:01 PM CDT Narrative [facility] - 11/25/2023 10:54 PM CDT Is the Patient experiencing symptoms consistent with COVID?->Unknown Surveillance testing for transplant patient?->No ??Interpretive Data The [employer] Film[employer] Respiratory Panel (RP2.1) assay is a [...] assay has FDA clearance for testing of INDUSTRIAL SECURITY ANALYST swabs. ??The performance of additional specimen types has been assessed by the performing laboratory. ??The performance characteristics of this assay have been determined by [facility]. Current interpretive data was last revised on 21. us Maxime Lee MD LAB MICROBIOLOGY - GENERAL O RDERABLES Final Result GO ROB[facility] [place] [address] documented in this encounter Visit Diagnoses Diagnosis Physical deconditioning- Primary Muscular wasting and disuse atrophy, not elsewhere classified Splenic abscess Other diseases of spleen Pulmonary nodule Other diseases of lung, not elsewhere classified Hepatic abscess Abscess of liver Ulcerative pancolitis with complication (CMS/HCC) (HCC) Diverticulitis of large intestine with perforation without abscess or bleeding Splenic abscess Other diseases of spleen Pulmonary nodule Other diseases of lung, not elsewhere classified Hepatic abscess Abscess of liver Severe malnutrition (CMS/HCC) Nutritional marasmus Consolidation of left upper lobe of lung (CMS/HCC) (HCC) Fever Fever, unspecified Ulcerative pancolitis with complication (CMS/HCC) (HCC) documented in this encounter Admitting Diagnoses Diagnosis Physical deconditioning Muscular wasting and disuse atrophy, not elsewhere classified Ulcerative pancolitis with complication (CMS/HCC) (HCC) documented in this encounter Administered Medications Inactive Administered Medications - up to 3 most recent administrations Medication Order MAR Action Action Date Dose Rate Site acetaminophen (TYLENOL) tablet 1,000 mg 1,000 mg, oral, Once, On Fri12/09/23 at 1400, For 1 dose Given 12/09/2023 1:35 PM CDT 1,000 mg acetaminophen (TYLENOL) tablet 1,000 mg 1,000 mg, oral, Every 6 hours PRN, 1st line for pain, Starting on Fri12/19/23 at 1153 Given 12/23/2023 8:44 AM STUDIO ARTIST 1,000 mg Given 12/22/2023 10:59 AM STUDIO ARTIST 1,000 mg Given 12/21/2023 5:49 PM STUDIO ARTIST 1,000 mg acetaminophen (TYLENOL) tablet 1,000 mg 1,000 mg, oral, Once, On Fri12/24/23 at 1130, For 1 dose, Pre-Op, Give upon arrival to holding area. , Indications: Pre-Emptive AnalgesiaIndications:Pre-Emptive Analgesia Given 12/24/2023 11:08 AM STUDIO ARTIST 1,000 mg acetaminophen (TYLENOL) tablet 1,000 mg 1,000 mg, oral, Every 6 hours scheduled, First dose on Fri12/24/23 at 2100, Indications: PainIndications:Pain Given 12/30/2023 4:13 PM STUDIO ARTIST 1,000 mg Given 12/30/2023 9:43 AM STUDIO ARTIST 1,000 mg Given 12/29/2023 9:35 PM STUDIO ARTIST 1,000 mg acetaminophen (TYLENOL) tablet 650 mg 650 mg, oral, Every 4 hours PRN, 1st line for pain, fever, Starting on Fri11/25/23 at 2120 Given 12/06/2023 9:38 PM CDT 650 mg Given 12/05/2023 9:16 PM CDT 650 mg Given 12/05/2023 5:10 PM CDT 650 mg al & mag hydroxide ntezgfekdkv-oisflmqjhpgngts-jqnbmvood-nystatin (MAGIC MOUTHWASH) oral suspension 1-1-1-1 15 mL 15 mL, swish & spit, Every 8 hours PRN, pain, mucositis, Starting on 12/06/23 at 1223, Have pt gargle Given 12/07/2023 5:19 PM CDT 15 mL Given 12/06/2023 7:00 PM CDT 15 mL alvimopan (ENTEREG) capsule 12 mg 12 mg, oral, Once, On Fri12/24/23 at 1130, For 1 dose, Pre-Op, Give immediately upon arrival to holding area (do not prescribe if patient is currently receiving chronic opioid treatment). , Indications: Postoperative Ileus, Postoperative ileus prophylaxisIndications:Postoperative Ileus,Postoperative ileus prophylaxis Given 12/24/2023 11:08 AM STUDIO ARTIST 12 mg benzocaine-menthoL (CHLORASEPTIC) lozenge 1 lozenge 1 lozenge, mouth/throat, Every 2 hours PRN, sore throat, 2nd line, Starting on 12/08/23 at 0550 Given 12/09/2023 12:00 AM CDT 1 lozenge Given 12/08/2023 10:00 PM CDT 1 lozenge Given 12/08/2023 7:09 PM CDT 1 lozenge benzonatate (TESSALON) capsule 100 mg 100 mg, oral, 3 times daily PRN, cough, Starting on Fri11/26/23 at 0129, Do not crush, chew, cut, dissolve, open or otherwise manipulate tablet/capsule., Indications: CoughIndications:Cough Given 12/21/2023 5:50 PM STUDIO ARTIST 100 mg Given 12/20/2023 8:33 PM CDT 100 mg Given 12/18/2023 6:16 PM CDT 100 mg bisacodyl EC (DULCOLAX EC) tablet 5 mg 5 mg, oral, 2 times daily, First dose on Fri12/23/23 at 1345, For 2 doses, Do not crush, chew, cut, dissolve, open or otherwise manipulate tablet/capsule., Indications: constipationIndications:constipation Given 12/23/2023 3:08 PM STUDIO ARTIST 5 mg Given 12/23/2023 1:26 PM STUDIO ARTIST 5 mg Carrier Fluids for Secondary Infusion - 0.9% Sodium Chloride 30 mL, intravenous, As needed, For priming tubing and/or flushing, Starting on Fri12/24/23 at 1840, 0-250 ml/hr to flush line after IV infusions when no maintenance IV ordered. Infuse 30mL at the same rate as the secondary infusion. Run as primary IV, not intended for KVO. Given 12/25/2023 10:13 AM STUDIO ARTIST 30 mL cefTRIAXone (ROCEPHIN) 2,000 mg/20 mL in sterile water (premix) 2,000 mg 2,000 mg, intravenous, at 240 mL/hr, Administer over 5 Minutes, Every 24 hours scheduled, First dose on Fri12/27/23 at 1215, For 3 doses, Indications: Abdominal/Pelvic InfectionIndications:Abdominal/Pel osbaldo Infection Given 12/29/2023 11:59 AM STUDIO ARTIST 2,000 mg 240 mL/hr Given 12/28/2023 11:00 AM STUDIO ARTIST 2,000 mg 240 mL/hr Given 12/27/2023 1:57 PM STUDIO ARTIST 2,000 mg 240 mL/hr ciprofloxacin (CIPRO) tablet 500 mg 500 mg, oral, 2 times daily (for quinolones,etc), First dose on Fri11/26/23 at 0600, Administer ciprofloxacin at least 2 hours before or 6 hours after antacids (containing aluminum or magnesium), calcium or calcium containing foods such as milk or yogurt, MVI (containing iron or zinc), iron, zinc, sucralfate or buffered meds such as didanosine., Indications: Abdominal/Pelvic InfectionIndications:Abdominal/Pelvic Infection Given 12/24/2023 5:51 AM STUDIO ARTIST 500 mg Given 12/23/2023 5:01 PM STUDIO ARTIST 500 mg Given 12/23/2023 5:36 AM STUDIO ARTIST 500 mg ciprofloxacin (CIPRO) tablet 500 mg 500 mg, oral, 2 times daily (for quinolones,etc), First dose on Fri12/24/23 at 1915, Administer ciprofloxacin at least 2 hours before or 6 hours after antacids (containing aluminum or magnesium), calcium or calcium containing foods such as milk or yogurt, MVI (containing iron or zinc), iron, zinc, sucralfate or buffered meds such as didanosine., Indications: Abdominal/Pelvic InfectionIndications:Abdominal/Pelvic Infection Given 12/25/2023 5:18 AM STUDIO ARTIST 500 mg Given 12/24/2023 8:36 PM STUDIO ARTIST 500 mg dextrose (D10W) 10% bolus 250 mL 250 mL, intravenous, at 1,000 mL/hr, Administer over 15 Minutes, Every 15 min PRN, blood glucose less than 70 mg/dL and UNABLE to swallow/take PO glucose/juice., Starting on Fri12/24/23 at 1840, After treatment for hypoglycemia, recheck BG followed by treatment every 15 minutes until the BG is greater than 100 mg/dL. Then check BG 1 hour post treatment. If BG is less than 100 mg/dL, repeat Q15 minute BG checks and treatment. Call MD for each episode of hypoglycemia., Indications: hypoglycemic disorderIndications:hypoglycemi c disorder dextrose gel in packet 15 g 15 g, oral, Every 15 min PRN, low blood sugar, blood glucose less than 70 mg/dL, Starting on Fri12/24/23 at 1840, If patient is alert and able to eat/drink, give 15 gm glucose or one juice (4 fluid ounces) NOT ORANGE JUICE. After treatment for hypoglycemia, recheck BG followed by treatment every 15 minutes until the BG is greater than 100 mg/dL. Then check BG 1 hour post-treatment. If BG is less than 100 mg/dL, repeat Q15 minute BG checks and treatment. Call MD for each episode of hypoglycemia., Indications: hypoglycemic disorderIndications:hypoglycemi c disorder enoxaparin (LOVENOX) syringe 40 mg 40 mg, subcutaneous, Daily (for enoxaparin), First dose on Fri11/25/23 at 2100, Indications: Deep Vein Thrombosis Prevention, On hold since Fri11/27/2023 at 1614 until manually unheldIndications:Deep Vein Thrombosis Prevention Given 11/26/2023 9:40 PM CDT 40 mg Left Lower Abdomen Given 11/25/2023 9:05 PM CDT 40 mg Le ft Lower Abdomen enoxaparin (LOVENOX) syringe 40 mg 40 mg, subcutaneous, Daily (for enoxaparin), First dose on Fri11/30/23 at 2100, Indications: Deep Vein Thrombosis Prevention, On hold since Fri12/23/2023 at 1218 until manually unheldIndications:Deep Vein Thrombosis Prevention Given 12/22/2023 8:28 PM STUDIO ARTIST 40 mg Left Lower Abdomen Given 12/21/2023 9:26 PM STUDIO ARTIST 40 mg Le ft Upper Arm Given 12/20/2023 8:33 PM CDT 40 mg Le ft Upper Arm enoxaparin (LOVENOX) syringe 40 mg 40 mg, subcutaneous, Daily (for enoxaparin), First dose on Fri12/24/23 at 2100, Indications: Deep Vein Thrombosis PreventionIndications:Deep Vein Thrombosis Prevention Given 12/29/2023 9:35 PM STUDIO ARTIST 40 mg Right Upper Arm Given 12/28/2023 10:13 PM STUDIO ARTIST 40 mg L eft Lower Abdomen Given 12/25/2023 9:42 PM STUDIO ARTIST 40 mg Le ft Upper Arm ertapenem (INVanz) 1,000 mg in sterile water 10 mL (100 mg/mL) IV syringe 1,000 mg, intravenous, at 120 mL/hr, Administer over 5 Minutes, Every 24 hours scheduled, First dose on Fri12/09/23 at 1300, For IV Push administration: add 10 mL of sterile water for injection or NS to 1g vial to achieve a final concentration of 100 mg/mL. Do NOT mix with dextrose or other medications., Indications: Abdominal/Pelvic Infection, Blood Stream/Endovascular InfectionIndications:Abdominal/Pe lvic Infection,Blood Stream/Endovascular Infection New Bag 12/10/2023 12:35 PM CDT 1,000 mg 120 mL/hr New Bag 12/09/2023 12:26 PM CDT 1,000 mg 120 mL/hr fentaNYL (SUBLIMAZE) preservative free injection Code/trauma/sedation medication, Starting on Fri11/28/23 at 1015 Given 11/28/2023 10:18 AM CDT 50 mcg Given 11/28/2023 10:15 AM CDT 50 mcg fludeoxyglucose F-18 (FDG) injection 15 millicurie 15 millicurie, intravenous, Once in imaging, radiopharmaceutical, Starting on Fri12/04/23 at 0841, For 1 dose Given 12/04/2023 8:50 AM CDT 14.91 millicuries folic acid (FOLVITE) tablet 1 mg 1 mg, oral, Daily, First dose on Fri11/28/23 at 1200, Each tablet contains 1 mg of folic acid (1.67 mg DFE). Given 12/23/2023 8:44 AM STUDIO ARTIST 1 mg Given 12/22/2023 9:28 AM STUDIO ARTIST 1 mg Given 12/21/2023 9:26 AM STUDIO ARTIST 1 mg gabapentin (NEURONTIN) capsule 300 mg 300 mg, oral, Once, On Fri12/24/23 at 1130, For 1 dose, Pre-Op, Give upon arrival to holding area. , Indications: Pre-Emptive AnalgesiaIndications:Pre-Emptive Analgesia Given 12/24/2023 11:[address] 300 mg gabapentin (NEURONTIN) capsule 300 mg 300 mg, oral, Every 12 hours scheduled, First dose on Fri12/24/23 at 2100, Indications: PainIndications:Pain Given 12/30/2023 9:43 AM STUDIO ARTIST 300 mg Given 12/29/2023 9:35 PM STUDIO ARTIST 300 mg Given 12/29/2023 7:47 AM STUDIO ARTIST 300 mg guaiFENesin ER (MUCINEX) extended release tablet 1,200 mg 1,200 mg, oral, 2 times daily PRN, cough, Starting on Sabi 12/04/23 at 2033, Do not crush, chew, cut, dissolve, open or otherwise manipulate tablet/capsule. Given 12/07/2023 9:04 PM CDT 1,200 m g Given 12/07/2023 9:16 AM CDT 1,200 mg Given 12/06/2023 9:38 PM CDT 1,200 mg heparin 5,000 unit/mL injection 5,000 Units 5,000 Units, subcutaneous, Once, On Fri12/24/23 at 1130, For 1 dose, Pre-Op, Indications: Deep Vein Thrombosis PreventionIndications: Deep Vein Thrombosis Prevention Given 12/24/2023 11:08 AM STUDIO ARTIST 5,000 Units Left Lower Abdomen HYDROmorphone in 0.9% sodium chloride (DILAUDID) 20 mg/100 mL (0.2 mg/mL) (premix) Continuous: none, OVEN HEATER dose: Other, OVEN HEATER dose (mg): 0.1, OVEN HEATER lockout: 10 Minutes, 1 hour limit: Other, 1 hour limit (mg): 0.6, intravenous, Continuous, Starting on Fri12/24/23 at 1845, Until Fri12/26/23 at 0825, 100 mL, Indications: Pain, RoutineIndications:Gulshan n New Syringe/Cartridge 12/24/2023 6:26 PM STUDIO ARTIST ibuprofen (ADVIL,MOTRIN) tablet 600 mg 600 mg, oral, Every 8 hours scheduled, First dose on Fri12/27/23 at 2200, Start ibuprofen after the ketorolac doses are finished., Indications: PainIndications:Pain Given 12/30/2023 1:35 PM STUDIO ARTIST 600 mg Given 12/30/2023 5:24 AM STUDIO ARTIST 600 mg Given 12/29/2023 9:35 PM STUDIO ARTIST 600 mg insulin lispro (HumaLOG, ADMELOG) 100 unit/mL injection 0-10 Units 0-10 Units, subcutaneous, 3 times daily with meals, First dose on Fri12/05/23 at 0800, Blood glucose mg/dL: 149 or less: No insulin 150-199: add 2 unit 200-249: add 4 units 250-299: add 6 units 300-349: add 8 units and notify physician for adjustment of insulin orders. 350-399: add 10 units and notify physician for adjustment of insulin orders. Over 400: Notify physician for adjustment of insulin orders. Do NOT hold for NPO Status, Indications: Diabetes MellitusIndications:Diabetes Mellitus Given 12/15/2023 5:50 PM CDT 2 Units Right Upper Arm Given 12/15/2023 12:31 PM CDT 2 Units L eft Upper Arm Given 12/14/2023 5:49 PM CDT 4 Units Le ft Upper Arm insulin lispro (HumaLOG, ADMELOG) 100 unit/mL injection 0-4 Units 0-4 Units, subcutaneous, Nightly, First dose on Fri11/25/23 at 2215, Blood glucose mg/dL: 199 or less: No insulin 200-249: add 1 unit 250-299: add 2 units 300-349: add 3 units and notify physician for adjustment of insulin orders. 350-399: add 4 units and notify physician for adjustment of insulin orders. Over 400: Notify physician for adjustment of insulin orders. Do NOT hold for NPO Status, Indications: Diabetes MellitusIndications:Diabetes Mellitus Given 12/02/2023 8:53 PM CDT 1 Units Right Upper Arm Given 12/01/2023 8:39 PM CDT 1 Units Ri ght Upper Arm Given 11/26/2023 11:49 PM CDT 1 Units L eft Lower Abdomen insulin lispro (HumaLOG, ADMELOG) 100 unit/mL injection 0-4 Units 0-4 Units, subcutaneous, Nightly, First dose on Fri12/24/23 at 2100, Blood glucose mg/dL: 199 or less: No insulin 200-249: add 1 unit 250-299: add 2 units 300-349: add 3 units and notify physician for adjustment of insulin orders. 350-399: add 4 units and notify physician for adjustment of insulin orders. Over 400: Notify physician for adjustment of insulin orders. Do NOT hold for NPO Status, Indications: Diabetes MellitusIndications:Diabetes Mellitus Given 12/24/2023 8:46 PM STUDIO ARTIST 1 Units Left Upper Arm insulin lispro (HumaLOG, ADMELOG) 100 unit/mL injection 0-5 Units 0-5 Units, subcutaneous, 3 times daily with meals, First dose on Fri11/26/23 at 0800, Blood glucose mg/dL: 149 or less: No insulin 150-199: add 1 unit 200-249: add 2 units 250-299: add 3 units 300-349: add 4 units and notify physician for adjustment of insulin orders. 350-399: add 5 units and notify physician for adjustment of insulin orders. Over 400: Notify physician for adjustment of insulin orders. Do NOT hold for NPO Status, Indications: Diabetes MellitusIndications:Diabetes Mellitus Given 12/03/2023 12:44 PM CDT 2 Units Left Upper Arm Given 12/02/2023 6:03 PM CDT 1 Units Le ft Upper Arm Given 12/01/2023 5:51 PM CDT 1 Units Le ft Upper Arm insulin lispro (HumaLOG, ADMELOG) 100 unit/mL injection 0-5 Units 0-5 Units, subcutaneous, Nightly, First dose on Fri12/03/23 at 2100, Blood glucose mg/dL: 149 or less: No insulin 150-199: add 1 unit 200-249: add 2 units 250-299: add 3 units 300-349: add 4 units and notify physician for adjustment of insulin orders. 350-399: add 5 units and notify physician for adjustment of insulin orders. Over 400: Notify physician for adjustment of insulin orders. Do NOT hold for NPO Status, Indications: Diabetes MellitusIndications:Diabetes Mellitus Given 12/04/2023 8:21 PM CDT 2 Units Right Upper Arm Given 12/03/2023 9:04 PM CDT 1 Units Le ft Upper Arm insulin lispro (HumaLOG, ADMELOG) 100 unit/mL injection 0-5 Units 0-5 Units, subcutaneous, Nightly, First dose on Fri12/05/23 at 2100, Blood glucose mg/dL: 149 or less: No insulin 150-199: add 1 unit 200-249: add 2 units 250-299: add 3 units 300-349: add 4 units and notify physician for adjustment of insulin orders. 350-399: add 5 units and notify physician for adjustment of insulin orders. Over 400: Notify physician for adjustment of insulin orders. Do NOT hold for NPO Status, Indications: Diabetes MellitusIndications:Diabetes Mellitus Given 12/15/2023 8:31 PM CDT 2 Units Left Lower Abdomen Given 12/13/2023 8:56 PM CDT 1 Units Le ft Upper Arm Given 12/11/2023 10:07 PM CDT 2 Units L eft Upper Arm insulin lispro (HumaLOG, ADMELOG) 100 unit/mL injection 0-5 Units 0-5 Units, subcutaneous, 3 times daily with meals, First dose on Fri12/24/23 at 1915, Blood glucose mg/dL: 149 or less: No insulin 150-199: add 1 unit 200-249: add 2 units 250-299: add 3 units 300-349: add 4 units and notify physician for adjustment of insulin orders. 350-399: add 5 units and notify physician for adjustment of insulin orders. Over 400: Notify physician for adjustment of insulin orders. Do NOT hold for NPO Status, Indications: Diabetes MellitusIndications:Diabetes Mellitus Given 12/30/2023 1:35 PM STUDIO ARTIST 1 Units Left Upper Arm Given 12/29/2023 6:02 PM STUDIO ARTIST 1 Units Ri ght Upper Arm Given 12/28/2023 12:46 PM STUDIO ARTIST 1 Units L eft Lower Abdomen ioversoL (OPTIRAY 350) syringe 75 mL 75 mL, intravenous, Once in imaging, contrast, Starting on 11/26/23 at 1407, For 1 dose Contrast Given 11/26/2023 2:10 PM CDT 70 mL ioversoL (OPTIRAY 350) syringe 75 mL 75 mL, intravenous, Once in imaging, contrast, Starting on Sabi 12/25/23 at 1626, For 1 dose Contrast Given 12/25/2023 4:35 PM STUDIO ARTIST 68 mL ioversoL (OPTIRAY 350) syringe 75 mL 75 mL, intravenous, Once in imaging, contrast, Starting on 12/27/23 at 1133, For 1 dose Contrast Given 12/27/2023 11:33 AM STUDIO ARTIST 67 mL ketorolac (TORADOL) 30 mg/mL injection 15 mg 15 mg, intravenous, Every 8 hours scheduled, First dose on 12/24/23 at 2200, For 9 doses, Indications: Postoperative Acute PainIndications:Postoperative Acute Pain Given 12/27/2023 12:58 PM STUDIO ARTIST 15 mg Given 12/26/2023 9:20 PM STUDIO ARTIST 15 mg Given 12/26/2023 1:01 PM STUDIO ARTIST 15 mg Lactated Ringer's (LR) bolus 1,000 mL 1,000 mL, intravenous, Once, On Sabi 12/04/23 at 1645, For 1 dose New Bag 12/04/2023 5:50 PM CDT 1,000 mL Lactated Ringer's (LR) bolus 1,000 mL 1,000 mL, intravenous, at 333 mL/hr, Administer over 3 Hours, Once, On 12/09/23 at 1230, For 1 dose New Bag 12/09/2023 11:53 AM CDT 1,000 mL 333 mL/hr Lactated Ringer's (LR) bolus 1,000 mL 1,000 mL, intravenous, at 1,000 mL/hr, Administer over 1 Hours, Once, On Fri12/09/23 at 1400, For 1 dose New Bag 12/09/2023 1:35 PM CDT 1,000 mL 1000 mL/hr Lactated Ringer's (LR) bolus 1,000 mL 1,000 mL, intravenous, at 500 mL/hr, Administer over 2 Hours, Once, On Fri12/24/23 at 2330, For 1 dose New Bag 12/24/2023 10:43 PM STUDIO ARTIST 1,000 mL 500 mL/hr Lactated Ringer's (LR) bolus 1,000 mL 1,000 mL, intravenous, Once, On Fri12/25/23 at 1545, For 1 dose New Bag 12/25/2023 3:11 PM STUDIO ARTIST 1,000 mL Lactated Ringer's (LR) bolus 1,000 mL 1,000 mL, intravenous, Once, On Fri12/25/23 at 1930, For 1 dose New Bag 12/25/2023 6:58 PM STUDIO ARTIST 1,000 mL Lactated Ringer's (LR) bolus 500 mL 500 mL, intravenous, Once, On Fri12/09/23 at 1615, For 1 dose New Bag 12/09/2023 3:54 PM CDT 500 mL Lactated Ringer's (LR) bolus 500 mL 500 mL, intravenous, at 250 mL/hr, Administer over 2 Hours, Once, On Fri12/25/23 at 0515, For 1 dose New Bag 12/25/2023 4:50 AM STUDIO ARTIST 500 mL 250 mL/hr Lactated Ringer's (LR) infusion 50 mL/hr, intravenous, Continuous, Starting on Fri12/04/23 at 2030, For 16 hours New Bag 12/04/2023 8:06 PM CDT 50 mL/hr 50 mL/hr Lactated Ringer's (LR) infusion 30 mL/hr, intravenous, Continuous, Starting on Fri12/24/23 at 1130, Pre-Op New Bag 12/24/2023 3:38 PM STUDIO ARTIST 30 mL/h r New Bag 12/24/2023 1:36 PM STUDIO ARTIST 30 mL/hr Rate/Dose Verify 12/24/2023 11:43 AM STUDIO ARTIST 30 mL/ hr Lactated Ringer's (LR) infusion 50 mL/hr, intravenous, Continuous, Starting on Fri12/09/23 at 1730, For 6 hours Rate/Dose Verify 12/09/2023 5:39 PM CDT 50 mL/hr 50 mL/hr New Bag 12/09/2023 4:58 PM CDT 50 mL/hr 50 mL/hr Lactated Ringer's (LR) infusion 75 mL/hr, intravenous, Continuous, Starting on Fri12/24/23 at 1915 New Bag 12/26/2023 12:02 AM STUDIO ARTIST 75 mL/hr 75 mL/hr Rate/Dose Change 12/24/2023 7:50 PM STUDIO ARTIST 75 mL/hr 75 mL/h r lidocaine (PF) (XYLOCAINE) 20 mg/mL (2 %) preservative free injection 4 mL 4 mL, other, Once (foreign correspondent), On Fri11/28/23 at 0745, For 1 dose, Pre-Op, Bronchoscopy staff to administer via catheter topically to vocal cords., Indications: Administration of Local AnesthesiaIndications:Administration of Local Anesthesia Given 11/28/2023 10:17 AM CDT 4 mL lidocaine (PF) (XYLOCAINE) 20 mg/mL (2 %) preservative free injection 4 mL 4 mL, nebulization, Once (foreign correspondent), On Fri11/28/23 at 0745, For 1 dose, Pre-Op, Bronchoscopy staff to administer prior to procedure via nebulization., Indications: Administration of Local AnesthesiaIndications:Administration of Local Anesthesia Given 11/28/2023 9:47 AM CDT 4 mL lidocaine (XYLOCAINE) 10 mg/mL (1 %) injection Code/trauma/sedation medication, Starting on Fri11/28/23 at 1023, Indications: Administration of Local AnesthesiaIndications:Administration of Local Anesthesia Given 11/28/2023 10:23 AM CDT 20 mL linezolid (ZYVOX) tablet 600 mg 600 mg, oral, 2 times daily, First dose on Sabi 12/25/23 at 1415, For 10 doses, Indications: Abdominal/Pelvic InfectionIndications:Abdominal/Pelvic Infection Given 12/29/2023 9:36 PM STUDIO ARTIST 600 mg Given 12/29/2023 7:47 AM STUDIO ARTIST 600 mg Given 12/28/2023 10:14 PM STUDIO ARTIST 600 mg losartan (COZAAR) tablet 25 mg 25 mg, oral, Daily, First dose on Fri11/26/23 at 0900 Given 12/04/2023 11:21 AM CDT 25 mg Given 12/03/2023 9:19 AM CDT 25 mg Given 12/02/2023 8:38 AM CDT 25 mg losartan (COZAAR) tablet 25 mg 25 mg, oral, Daily, First dose (after last modification) on Fri12/07/23 at 1245, On hold since Fri12/09/2023 at 1517 until manually unheld Given 12/09/2023 9:43 AM CDT 25 mg Given 12/08/2023 10:04 AM CDT 25 mg Given 12/07/2023 12:11 PM CDT 25 mg magnesium sulfate 2 g/50 mL in water (premix) 2 g 2 g, intravenous, Administer over 60 Minutes, Once, On Fri12/04/23 at 1645, For 1 dose New 12/04/2023 4:19 PM CDT 2 g magnesium sulfate 2 g/50 mL in water (premix) 2 g 2 g, intravenous, Administer over 60 Minutes, Once, On Fri12/07/23 at 0915, For 1 dose 12/07/2023 12:16 PM CDT 2 g magnesium sulfate 2 g/50 mL in water (premix) 2 g 2 g, intravenous, Administer over 60 Minutes, Once, On Fri12/11/23 at 0245, For 1 dose 12/11/2023 3:02 AM CDT 2 g magnesium sulfate 2 g/50 mL in water (premix) 2 g 2 g, intravenous, Administer over 60 Minutes, Once, On Fri12/17/23 at 0745, For 1 dose 12/17/2023 9:29 AM CDT 2 g magnesium sulfate 2 g/50 mL in water (premix) 2 g 2 g, intravenous, Administer over 60 Minutes, Once, On 12/20/23 at 0745, For 1 dose New 12/20/2023 8:57 AM CDT 2 g magnesium sulfate 2 g/50 mL in water (premix) 2 g 2 g, intravenous, Administer over 60 Minutes, Once, On Fri12/23/23 at 0745, For 1 dose New Bag 12/23/2023 8:48 AM STUDIO ARTIST 2 g metoclopramide (REGLAN) 5 mg/mL injection 5 mg 5 mg, intravenous, Once, On Fri12/09/23 at 1400, For 1 dose Given 12/09/2023 1:30 PM CDT 5 mg metoprolol (LOPRESSOR) 5 mg/5 mL injection - ADS Override Pull Starting on Sabi 12/04/23 at 1605, For 1 dose, Created by cabinet override Given 12/04/2023 4:08 PM CDT 5 mg metoprolol (LOPRESSOR) injection 12.5 mg 12.5 mg, intravenous, Administer over 5 Minutes, Once, On Fri12/09/23 at 1230, For 1 dose Given 12/09/2023 11:54 AM CDT 2.5 mg metoprolol (LOPRESSOR) injection 2.5 mg 2.5 mg, intravenous, Administer over 1 Minutes, Once, On Fri12/09/23 at 1245, For 1 dose, 2.5 IV for suspected SVT. Repeat after 5 minutes if still in SVT Given 12/09/2023 12:12 PM CDT 2.5 mg metroNIDAZOLE (FLAGYL) tablet 500 mg 500 mg, oral, 2 times daily, First dose on Fri11/26/23 at 0900, Indications: Abdominal/Pelvic InfectionIndications:Abdominal/Pelvic Infection Given 12/23/2023 8:44 AM STUDIO ARTIST 500 mg Given 12/22/2023 8:28 PM STUDIO ARTIST 500 mg Given 12/22/2023 9:28 AM STUDIO ARTIST 500 mg metroNIDAZOLE (FLAGYL) tablet 500 mg 500 mg, oral, 3 times daily, First dose (after last modification) on Fri12/23/23 at 1600, Indications: Abdominal/Pelvic InfectionIndications:Abdominal/Pelvic Infection Given 12/23/2023 9:32 PM STUDIO ARTIST 500 mg Given 12/23/2023 3:08 PM STUDIO ARTIST 500 mg metroNIDAZOLE (FLAGYL) tablet 500 mg 500 mg, oral, 2 times daily, First dose on Fri12/24/23 at 2100, Indications: Abdominal/Pelvic InfectionIndications:Abdominal/Pelvic Infection Given 12/24/2023 8:35 PM STUDIO ARTIST 500 mg midazolam (VERSED) 1 mg/mL injection intravenous, Code/trauma/sedation medication, Starting on Fri11/28/23 at 1015 Given 11/28/2023 10:18 AM CDT 2 mg Given 11/28/2023 10:15 AM CDT 2 mg multivitamin 10 mL in sodium chloride 0.9% 500 mL IVPB intravenous, at 63.8 mL/hr, Administer over 8 Hours, Daily, First dose on Fri11/28/23 at 0900, For 4 doses New Bag 12/01/2023 8:29 AM CDT 6 3.8 mL/hr New Bag 11/30/2023 8:25 AM CDT 63.8 mL/hr New Bag 11/29/2023 10:05 AM CDT 63.8 mL/hr multivitamin with folic acid 400 mcg tablet 1 tablet 1 tablet, oral, Daily, First dose on Fri12/02/23 at 0900 Given 12/23/2023 8:44 AM STUDIO ARTIST 1 tablet Given 12/22/2023 9:28 AM STUDIO ARTIST 1 tablet Given 12/21/2023 9:26 AM STUDIO ARTIST 1 tablet neomycin (MYCIFRADIN) tablet 1,000 mg 1,000 mg, oral, 3 times daily, First dose on Fri12/23/23 at 1400, For 3 doses, Pre-Op/Floor, Day before surgery at 13:00, 14:00, 22:00., Indications: Prophylaxis, SurgicalIndications:Prophylaxis, Surgical Given 12/23/2023 9:32 PM STUDIO ARTIST 1,000 mg Given 12/23/2023 3:07 PM STUDIO ARTIST 1,000 mg ondansetron (ZOFRAN) injection 4 mg 4 mg, intravenous, Administer over 2 Minutes, Every 4 hours PRN, nausea, vomiting, Starting on Fri11/25/23 at 2120 Given 12/24/2023 3:00 AM STUDIO ARTIST 4 mg Given 12/09/2023 12:22 PM CDT 4 mg ondansetron ODT (ZOFRAN-ODT) disintegrating tablet 8 mg 8 mg, oral, Once, On Fri12/23/23 at 1330, For 1 dose, Pre-Op/Floor, Day before surgery at 11:00 prior to starting bowel prep., Indications: Prevention of NauseaIndications:Prevention of Nausea Given 12/23/2023 1:26 PM STUDIO ARTIST 8 mg oxyCODONE (ROXICODONE) tablet 5 mg 5 mg, oral, Every 4 hours PRN, 1st line for pain, Starting on Fri12/26/23 at 0824, Indications: PainIndications:Pain Given 12/30/2023 9:43 AM STUDIO ARTIST 5 mg Given 12/29/2023 1:50 PM STUDIO ARTIST 5 mg Given 12/29/2023 9:46 AM STUDIO ARTIST [address] (PROTONIX) extended release tablet 40 mg 40 mg, oral, Daily, First dose on Fri11/26/23 at 0900, Do not crush, chew, cut, dissolve, open or otherwise manipulate tablet/capsule., Indications: Stress Ulcer ProphylaxisIndications:Stress Ulcer Prophylaxis Given 12/14/2023 8:52 AM CDT 40 mg Given 12/13/2023 8:17 AM CDT 40 mg Given 12/12/2023 9:14 AM CDT [address] (PROTONIX) extended release tablet 40 mg 40 mg, oral, Daily, First dose (after last modification) on Fri12/15/23 at 0900, Do not crush, chew, cut, dissolve, open or otherwise manipulate tablet/capsule., Indications: Treatment of Non-Bleeding Gastric DisorderIndications:Treatment of Non-Bleeding Gastric Disorder Given 12/23/2023 8:45 AM STUDIO ARTIST 40 mg Given 12/22/2023 9:28 AM STUDIO ARTIST 40 mg Given 12/21/2023 9:26 AM STUDIO ARTIST [address] (PROTONIX) extended release tablet 40 mg 40 mg, oral, Daily, First dose on Fri12/24/23 at 1915, Do not crush, chew, cut, dissolve, open or otherwise manipulate tablet/capsule., Indications: Stress Ulcer ProphylaxisIndications:Stress Ulcer Prophylaxis Given 12/30/2023 9:43 AM STUDIO ARTIST 40 mg Given 12/29/2023 7:47 AM STUDIO ARTIST 40 mg Given 12/28/2023 8:43 AM STUDIO ARTIST 40 mg phenoL (CHLORASEPTIC) 1.4 % oral spray 1 spray 1 spray, mouth/throat, Every 4 hours PRN, sore throat, Starting on Fri11/28/23 at 1755 Given 11/29/2023 8:58 PM CDT 1 spray Given 11/29/2023 5:16 AM CDT 1 spray Given 11/29/2023 2:30 AM CDT 1 spray phytonadione (VITAMIN K1) 2.5 mg in dextrose 5% 50 mL IVPB 2.5 mg, intravenous, at 151 mL/hr, Administer over 20 Minutes, Once, On Fri11/28/23 at 0815, For 1 dose, Protect from light., Indications: Anticoagulant-Induced Prothrombin DeficiencyIndications:Anticoagulan t-Induced Prothrombin Deficiency New 11/28/2023 1:02 PM CDT 2.5 mg 151 mL/hr phytonadione (VITAMIN K1) tablet 2.5 mg 2.5 mg, oral, Once, On Fri11/27/23 at 1645, For 1 dose, Indications: Anticoagulant-Induced Prothrombin DeficiencyIndications:Anticoagulan t-Induced Prothrombin Deficiency Given 11/27/2023 4:53 PM CDT 2.5 mg piperacillin-tazobactam (ZOSYN) 3.375 gram/65 mL in sodium chloride 0.9% (premix) 3.375 g 3.375 g, intravenous, at 130 mL/hr, Administer over 30 Minutes, Every 6 hours scheduled, First dose on Fri12/25/23 at 0830, Indications: Abdominal/Pelvic InfectionIndications:Abdominal/Pel osbaldo Infection New 12/27/2023 9:01 AM STUDIO ARTIST 3.375 g 130 mL/hr 12/27/2023 2:42 AM STUDIO ARTIST 3.375 g 130 mL/hr New 12/26/2023 5:25 PM STUDIO ARTIST 3.375 g 130 mL/hr piperacillin-tazobactam (ZOSYN) 4.5 gram/120 mL in sodium chloride 0.9% (premix) 4.5 g 4.5 g, intravenous, at 240 mL/hr, Administer over 0.5 Hours, Every 6 hours scheduled, First dose on Sabi 12/04/23 at 1800, Indications: Blood Stream/Endovascular InfectionIndications:Blood Stream/Endovascular Infection New 12/06/2023 11:57 AM CDT 4.5 g 240 mL/hr New Bag 12/06/2023 5:18 AM CDT 4.5 g 240 mL/hr New Bag 12/06/2023 12:40 AM CDT 4.5 g 240 mL/hr polyethylene glycol (GoLYTELY) solution 4,000 mL 4,000 mL, oral, Once, On Fri12/23/23 at 1600, For 1 dose, Starting at 17:00 the evening before the procedure have patient rapidly drink 8 ounces of solution every 10 minutes until jug (4 liters) is empty. Do not sip. This should take 3 hours. If patient becomes nauseated, decrease frequency of drinking to every 20 minutes. Using the container provided, add lukewarm water (may use tap water) up to the 4 L water jhonny; shake vigorously several times to ensure dissolution of the powder., Indications: Bowel EvacuationIndications:Bowel Evacuation Given 12/23/2023 4:58 PM STUDIO ARTIST 4,000 mL polyethylene glycol (MIRALAX) packet 17 g 17 g, oral, Daily, First dose on Fri12/30/23 at 0900, Indications: constipationIndications:constipation potassium chloride (KLOR-CON) packet 20 mEq 20 mEq, oral, Once, On Fri12/06/23 at 0900, For 1 dose, Dissolve one packet in at least 120 mL of cold water or other beverage prior to administration. Given 12/06/2023 8:54 AM CDT 20 mEq potassium chloride ER (KLOR-CON) extended release tablet 20 mEq 20 mEq, oral, Once, On Fri12/11/23 at 0245, For 1 dose, Tablets should not be crushed, chewed, dissolved, or otherwise manipulated. Capsules may be opened and sprinkled on a spoonful of applesauce or pudding, but the contents of the capsule should not be crushed or chewed. Given 12/11/2023 2:32 AM CDT 20 mEq psyllium (aspartame) SF (METAMUCIL SF) 3.4 gram packet 1 packet 1 packet, oral, Once, On Fri12/17/23 at 0845, For 1 dose Given 12/17/2023 11:46 AM CDT 1 packet pyridoxine (VITAMIN B6) tablet 100 mg 100 mg, oral, Daily, First dose on Fri11/28/23 at 1200 Given 12/08/2023 10:04 AM CDT 100 mg Given 12/07/2023 9:16 AM CDT 100 mg Given 12/06/2023 8:54 AM CDT 100 mg sodium chloride 0.9% bolus Code/trauma/sedation continuous med, Starting on Fri11/28/23 at 1023 New Bag 11/28/2023 10:23 AM CDT 100 mL sodium chloride 0.9% flush 0.5-20 mL 0.5-20 mL, intra-catheter, As needed, line care, Starting on Fri11/28/23 at 0700, Pre-Op, Flush volume based on line type and size. Flush before and after each use. Given 12/07/2023 6:01 AM CDT 1 0 mL Given 12/04/2023 6:57 PM CDT 10 mL sodium chloride 0.9% flush 0.5-20 mL 0.5-20 mL, intra-catheter, Every 8 hours scheduled (alternate), First dose on Fri12/24/23 at 1915, Flush volume based on line type and size. Given 12/30/2023 9:44 AM STUDIO ARTIST 10 mL Given 12/29/2023 6:04 PM STUDIO ARTIST 10 mL Given 12/29/2023 7:48 AM STUDIO ARTIST 10 mL sodium chloride 0.9% IVPB 0-250 mL 0-250 mL, intravenous, Once, On Sabi 12/25/23 at 2300, For 1 dose, Prime blood tubing and administer amount needed to clear line (usually 50-100 mL) after transfusion complete. New Bag 12/25/2023 11:17 AM STUDIO ARTIST 250 mL sodium chloride 0.9% IVPB 0-250 mL 0-250 mL, intravenous, Once, On 12/27/23 at 0030, For 1 dose, Prime blood tubing and administer amount needed to clear line (usually 50-100 mL) after transfusion complete. New Bag 12/27/2023 12:25 AM STUDIO ARTIST 200 mL thiamine (VITAMIN B-1) 500 mg in sodium chloride 0.9% 100 mL IVPB 500 mg, intravenous, at 210 mL/hr, Administer over 30 Minutes, 3 times daily, First dose on Fri11/28/23 at 0900, For 3 doses, Indications: Nutritional DeficiencyIndications:Nutritional Deficiency New Bag 11/28/2023 9:10 PM CDT 500 mg 210 mL/hr New Bag 11/28/2023 6:01 PM CDT 500 mg 210 mL/hr New Bag 11/28/2023 12:05 PM CDT 500 mg 210 mL/hr thiamine (VITAMIN B1) tablet 100 mg 100 mg, oral, Daily, First dose on 11/29/23 at 0900 Given 12/23/2023 8:44 AM STUDIO ARTIST 100 mg Given 12/22/2023 9:28 AM STUDIO ARTIST 100 mg Given 12/21/2023 9:26 AM STUDIO ARTIST 100 mg vancomycin 750 mg/257.5 mL in sodium chloride 0.9% (premix) 750 mg 750 mg (rounded from 864 mg = 15 mg/kg ? 57.6 kg), intravenous, Administer over 60 Minutes, Every 12 hours, First dose on Sabi 12/04/23 at 1800, Indications: Blood Stream/Endovascular InfectionIndications:Blood Stream/Endovascular Infection New Bag 12/06/2023 5:19 AM CDT 750 mg New Bag 12/05/2023 4:58 PM CDT 750 mg New Bag 12/05/2023 5:12 AM CDT 750 mg documented in this encounter Discontinued Medications Medication Sig Discontinue Reason Start Date End Da te ergocalciferol (VITAMIN D) 50,000 unit capsule Error 10/30/2023 11/26/2023 triamcinolone (KENALOG) 0.1 % paste Error 08/01/2023 11/26/2023 acetaminophen 500 mg capsule Take 2 capsules (1,000 mg total) by mouth every 6 (six) hours as needed (pain) 11/06/2023 12/30/2023 ferrous sulfate 325 mg (65 mg of elemental iron) tablet Take 1 tablet (325 mg total) by mouth daily with breakfast Stop Taking at Discharge 10/04/2023 12/30/2023 mesalamine (CANASA) 1,000 mg suppository Insert 1 suppository (1,000 mg total) into the rectum nightly Stop Taking at Discharge 10/08/2023 12/30/2023 ciprofloxacin (CIPRO) 500 mg tablet Take 1 tablet (500 mg total) by mouth 2 (two) times a day Stop Taking at Discharge 12/30/2023 metroNIDAZOLE (FLAGYL) 500 mg tablet Take 1 tablet (500 mg total) by mouth 2 (two) times a day Stop Taking at Discharge 12/30/2023 UNABLE TO FIND IRON INFUSIONS PRN Stop Taking at Discharge 12/30/2023 documented as of this encounter Historical Medications * This list may reflect changes made after this encounter. magnesium oxide 500 mg capsule Take by mouth daily loperamide (IMODIUM) 2 mg capsuleIndications :Diarrhea Secondary to Inflammatory Bowel Disease Take 1 capsule (2 mg total) by mouth 4 (four) times a day as needed for diarrhea cyanocobalamin (Vitamin B-12) 2,500 mcg tablet, sublingual Take 1 tablet (2,500 mcg total) by mouth daily added in this encounter Active and Recently Administered Medications Times are shown in STUDIO ARTIST. Scheduled Medication Order 12/28/2023 12/29/2023 12/30/2023 acetaminophen (TYLENOL) tablet 1,000 mg 1,000 mg, oral, Every 6 hours scheduled, First dose on Fri12/24/23 at 2100, Indications: Pain 0312 (Not Given - Provider: Narcisa Ibarra RN - Reason: Patient/family refused)0843 (Given - Provider: Yakelin Hill)1458 (Given - Provider: Yakelin Hill)2213 (Given - Provider: Tiffanie Vela) 0237 (Not Given - Provider: Tiffanie Vela - Reason: Patient/family refused)0747 (Given - Provider: Yakelin Hill)1515 (Given - Provider: Yakelin Hill)2135 (Given - Provider: Tiffanie Vela) 0300 (Not Given - Provider: Tiffanie Vela - Reason: Patient/family refused)0943 (Given - Provider: Ana Luisa Hoff, ABHAY)1613 (Given - Provider: Ana Luisa Hoff, ABHAY) cefTRIAXone (ROCEPHIN) 2,000 mg/20 mL in sterile water (premix) 2,000 mg (COMPLETED) 2,000 mg, intravenous, at 240 mL/hr, Administer over 5 Minutes, Every 24 hours scheduled, First dose on Fri12/27/23 at 1215, For 3 doses, Indications: Abdominal/Pelvic Infection 1100 (Given - Provider: Yakelin Hill) 1159 (Given - Provider: Yakelin Hill) enoxaparin (LOVENOX) syringe 40 mg 40 mg, subcutaneous, Daily (for enoxaparin), First dose on Fri12/24/23 at 2100, Indications: Deep Vein Thrombosis Prevention 0849 (Unheld by Provider - Provider: Dylon Batres MD)2213 (Given - Provider: Tiffanie Vela) 2134 (Given - Provider: Tiffanie Vela) gabapentin (NEURONTIN) capsule 300 mg 300 mg, oral, Every 12 hours scheduled, First dose on Fri12/24/23 at 2100, Indications: Pain 0844 (Given - Provider: Yakelin Hill)2214 (Given - Provider: Tiffanie Vela) 0747 (Given - Provider: Yakelin Hill)213 (Given - Provider: Tiffanie Vela) 0943 (Given - Provider: Ana Luisa Hoff, ABHAY) ibuprofen (ADVIL,MOTRIN) tablet 600 mg(Linked Group 1) 600 mg, oral, Every 8 hours scheduled, First dose on Fri12/27/23 at 2200, Start ibuprofen after the ketorolac doses are finished., Indications: Pain 0608 (Given - Provider: Narcisa Ibarra RN)1403 (Given - Provider: Yakelin Hill)2214 (Given - Provider: Tiffanie Vela) 0616 (Not Given - Provider: Tiffanie Vela - Reason: Patient/family refused)1350 (Given - Provider: Yakelin Hill)5 (Given - Provider: Tiffanie Vela) 0524 (Given - Provider: Tiffanie Vela)1335 (Given - Provider: Ana Luisa Hoff RN) insulin lispro (HumaLOG, ADMELOG) 100 unit/mL injection 0-4 Units 0-4 Units, subcutaneous, Nightly, First dose on Fri12/24/23 at 2100, Blood glucose mg/dL: 199 or less: No insulin 200-249: add 1 unit 250-299: add 2 units 300-349: add 3 units and notify physician for adjustment of insulin orders. 350-399: add 4 units and notify physician for adjustment of insulin orders. Over 400: Notify physician for adjustment of insulin orders. Do NOT hold for NPO Status, Indications: Diabetes Mellitus 2207 (Not Given - Provider: Tiffanie Vela - Reason: Order parameters not met) 2124 (Not Given - Provider: Tiffanie Vela - Reason: Order parameters not met - Comment: BS of 142) insulin lispro (HumaLOG, ADMELOG) 100 unit/mL injection 0-5 Units 0-5 Units, subcutaneous, 3 times daily with meals, First dose on Fri12/24/23 at 1915, Blood glucose mg/dL: 149 or less: No insulin 150-199: add 1 unit 200-249: add 2 units 250-299: add 3 units 300-349: add 4 units and notify physician for adjustment of insulin orders. 350-399: add 5 units and notify physician for adjustment of insulin orders. Over 400: Notify physician for adjustment of insulin orders. Do NOT hold for NPO Status, Indications: Diabetes Mellitus 0844 (Not Given - Provider: Yakelin Hill - Reason: Order parameters not met)1246 (Given - Provider: Yakelin Hill)1744 (Not Given - Provider: Yakelin Hill - Reason: Order parameters not met) 0802 (Not Given - Provider: Yakelin Hill - Reason: Order parameters not met)1159 (Not Given - Provider: Yakelin Hill - Reason: Order parameters not met)1802 (Given - Provider: Yakelin Hill) 0943 (Not Given - Provider: Ana Luisa Hoff RN - Reason: Order parameters not met)1335 (Given - Provider: Ana Luisa Hoff RN)1800 (Due) linezolid (ZYVOX) tablet 600 mg (COMPLETED) 600 mg, oral, 2 times daily, First dose on Sabi 12/25/23 at 1415, For 10 doses, Indications: Abdominal/Pelvic Infection 0843 (Given - Provider: Yakelin Hill)2214 (Given - Provider: Tiffanie Vela) 0747 (Given - Provider: Yakelin Hill)2136 (Given - Provider: Tiffanie Vela) pantoprazole DR (PROTONIX) extended release tablet 40 mg 40 mg, oral, Daily, First dose on Fri12/24/23 at 1915, Do not crush, chew, cut, dissolve, open or otherwise manipulate tablet/capsule., Indications: Stress Ulcer Prophylaxis 0843 (Given - Provider: Yakelin Hill) 0747 (Given - Provider: Yakelin Hill) 0943 (Given - Provider: Ana Luisa Hoff RN) polyethylene glycol (MIRALAX) packet 17 g 17 g, oral, Daily, First dose on Fri12/30/23 at 0900, Indications: constipation 0944 (Not Given - Provider: Ana Luisa Hoff RN - Reason: Patient/family refused) sodium chloride 0.9% flush 0.5-20 mL 0.5-20 mL, intra-catheter, Every 8 hours scheduled (alternate), First dose on Fri12/24/23 at 1915, Flush volume based on line type and size. 0014 (Not Given - Provider: Narcisa Ibarra RN - Reason: Other)0844 (Given - Provider: Yakelin Hill)1458 (Given - Provider: Yakelin Hill)2334 (Not Given - Provider: Tiffanie Vela - Reason: Other) 0748 (Given - Provider: Yakelin Hill)1804 (Given - Provider: Yakelin Hill)2314 (Not Given - Provider: Tiffanie Vela - Reason: Other) 0944 (Given - Provider: Ana Luisa Hoff RN)1759 (Not Given - Provider: Ana Luisa Hoff RN - Reason: Other - Comment: pt going home) PRN Medication Order 12/28/2023 12/29/2023 12/30/2023 Carrier Fluids for Secondary Infusion - 0.9% Sodium Chloride 30 mL, intravenous, As needed, For priming tubing and/or flushing, Starting on Fri12/24/23 at 1840, 0-250 ml/hr to flush line after IV infusions when no maintenance IV ordered. Infuse 30mL at the same rate as the secondary infusion. Run as primary IV, not intended for KVO. dextrose (D10W) 10% bolus 250 mL(Linked Group 2) 250 mL, intravenous, at 1,000 mL/hr, Administer over 15 Minutes, Every 15 min PRN, blood glucose less than 70 mg/dL and UNABLE to swallow/take PO glucose/juice., Starting on Fri12/24/23 at 1840, After treatment for hypoglycemia, recheck BG followed by treatment every 15 minutes until the BG is greater than 100 mg/dL. Then check BG 1 hour post treatment. If BG is less than 100 mg/dL, repeat Q15 minute BG checks and treatment. Call MD for each episode of hypoglycemia., Indications: hypoglycemic disorder dextrose gel in packet 15 g(Linked Group 2) 15 g, oral, Every 15 min PRN, low blood sugar, blood glucose less than 70 mg/dL, Starting on Fri12/24/23 at 1840, If patient is alert and able to eat/drink, give 15 gm glucose or one juice (4 fluid ounces) NOT ORANGE JUICE. After treatment for hypoglycemia, recheck BG followed by treatment every 15 minutes until the BG is greater than 100 mg/dL. Then check BG 1 hour post-treatment. If BG is less than 100 mg/dL, repeat Q15 minute BG checks and treatment. Call MD for each episode of hypoglycemia., Indications: hypoglycemic disorder glucagon injection 1 mg 1 mg, intramuscular, Every 30 min PRN, low blood sugar, blood glucose less than 70 mg/dL AND no IV access AND unable to take PO glucose/juice., Starting on Fri12/24/23 at 1840, After Glucagon is administered, position patient on side if possible to avoid aspiration. Obtain IV access. Follow glucagon treatment with glucose treatment or IV dextrose. After treatment for hypoglycemia, recheck BG followed by treatment every 15 minutes until the BG is greater than 100 mg/dL. Then check BG 1 hour post treatment. If BG is less than 100 mg/dL, repeat Q15 minute BG checks and treatment. Call MD for each episode of hypoglycemia. Reconstitute 1 mg vial with 1 mL SWFI. Use immediately following reconstitution. naloxone (NARCAN) 0.4 mg/mL injection 0.04-0.4 mg 0.04-0.4 mg, intravenous, Every 10 min PRN, other, excessive sedation/respiratory depression, Starting on Fri12/24/23 at 1725, Phase I & Post-op Floor, Dilute 0.4 mg with 9 mL NS (final concentration 0.04 mg/mL). For respiratory depression (respiratory rate less than 6), administer 0.4 mg IVP over 30 seconds. For excessive sedation administer 0.04 mg (1 mL) every 1 minute until desired level of alertness. Stop OVEN HEATER and notify covering MD. This order has been ordered with OVEN HEATER infusion, please review upon the discontinuation of OVEN HEATER. For IV, administer over 30 seconds., Indications: Opioid Toxicity ondansetron (ZOFRAN) injection 4 mg 4 mg, intravenous, Administer over 2 Minutes, Every 6 hours PRN, nausea, vomiting, Starting on Fri12/24/23 at 1840, Proceed to prochlorperazine if no relief within 30 minutes. oxyCODONE (ROXICODONE) tablet 5 mg 5 mg, oral, Every 4 hours PRN, 1st line for pain, Starting on Fri12/26/23 at 0824, Indications: Pain 1059 (Given - Provider: Yakelin Hill)1458 (Given - Provider: Yakelin Hill)1901 (Given - Provider: Yakelin Hill) 0946 (Given - Provider: Yakelin Hill)1350 (Given - Provider: Yakelin Hlil)1803 (Return to Cabinet - Provider: Yakelin Hill - Comment: pt decided not have it d/t constipation. pt reported minimal pain while resting in bed and more so while ambulating.) 0943 (Given - Provider: Ana Luisa Hoff RN) prochlorperazine (COMPAZINE) injection 5 mg 5 mg, intravenous, Administer over 2 Minutes, Every 6 hours PRN, nausea, vomiting, Starting on Fri12/24/23 at 1840, If not relieved by ondansetron within 30 minutes. sodium chloride 0.9% flush 0.5-20 mL 0.5-20 mL, intra-catheter, As needed, line care, Starting on Fri12/24/23 at 1840, Flush volume based on line type and size. Flush before and after each use. Linked Groups Order Group 1: ketorolac (TORADOL) 30 mg/mL injection 15 mg () 15 mg, intravenous, Every 8 hours scheduled, First dose on Fri12/24/23 at 2200, For 9 doses, Indications: Postoperative Acute Pain Followed by ibuprofen (ADVIL,MOTRIN) tablet 600 mgJump to med 600 mg, oral, Every 8 hours scheduled, First dose on Fri12/27/23 at 2200, Start ibuprofen after the ketorolac doses are finished., Indications: Pain Group 2: dextrose gel in packet 15 gJump to med 15 g, oral, Every 15 min PRN, low blood sugar, blood glucose less than 70 mg/dL, Starting on Fri12/24/23 at 1840, If patient is alert and able to eat/drink, give 15 gm glucose or one juice (4 fluid ounces) NOT ORANGE JUICE. After treatment for hypoglycemia, recheck BG followed by treatment every 15 minutes until the BG is greater than 100 mg/dL. Then check BG 1 hour post-treatment. If BG is less than 100 mg/dL, repeat Q15 minute BG checks and treatment. Call MD for each episode of hypoglycemia., Indications: hypoglycemic disorder Or dextrose (D10W) 10% bolus 250 mLJump to med 250 mL, intravenous, at 1,000 mL/hr, Administer over 15 Minutes, Every 15 min PRN, blood glucose less than 70 mg/dL and UNABLE to swallow/take PO glucose/juice., Starting on Fri12/24/23 at 1840, After treatment for hypoglycemia, recheck BG followed by treatment every 15 minutes until the BG is greater than 100 mg/dL. Then check BG 1 hour post treatment. If BG is less than 100 mg/dL, repeat Q15 minute BG checks and treatment. Call MD for each episode of hypoglycemia., Indications: hypoglycemic disorder documented in this encounter Orders Medications Ordered That Justin ht Not Have Been Administered Count Last Ordered Date First Ordered Date polyethylene glycol (MIRALAX) packet 17 g 2 12/30/2023 11/25/2023 ibuprofen (ADVIL,MOTRIN) tablet 600 mg 1 acetaminophen (TYLENOL) tablet 500 mg 1 07/2023 alvimopan (ENTEREG) capsule 12 mg 1 024 Carrier Fluids for Secondary Infusion - 0.9% Sodium Chloride 2 12/24/2023 11/28/2023 clindamycin (CLEOCIN) 600 mg , gentamicin (GARAMYCIN) 240 mg in sodium chloride 0.9% 500 mL irrigation solution 1 12/24/2023 dextrose (D10W) 10% bolus 250 mL 2 12/24/19 24 11/25/2023 dextrose gel in packet 15 g 2 12/24/2023 11/25/2023 diphenhydrAMINE (BENADRYL) 5 0 mg/mL injection 12.5 mg 1 12/24/2023 ertapenem (INVanz) 1,000 mg in sterile water 10 mL (100 mg/mL) IV syringe 1 12/24/2023 glucagon injection 1 mg 2 12/24/2023 1009/2023 haloperidol (HALDOL) injection 1 mg 1 12/23 HYDROmorphone (DILAUDID) injection 0.2 mg 1 12/24/2023 HYDROmorphone (DILAUDID) injection 0.4 mg 1 12/24/2023 HYDROmorphone in 0.9% sodium chloride (DILAUDID) 20 mg/100 mL (0.2 mg/mL) (premix) 1 12/24/2023 naloxone (NARCAN) 0.4 mg/mL injection 0.04-0.4 mg 2 12/24/2023 ondansetron (ZOFRAN) injection 4 mg 2 12/23 oxyCODONE (ROXICODONE) tablet 5 mg 1 2023 prochlorperazine (COMPAZINE) injection 5 mg 1 12/24/2023 sodium chloride 0.9% flush 0.5-20 mL 2 07/2023 sodium chloride 0.9% irrigation 1 sterile water irrigation 1 12/24/2023 polyethylene glycol (MIRALAX ) bulk powder 238 g 1 12/23/2023 acetaminophen (TYLENOL) tablet 1,000 mg 1 1 midodrine (PROAMATINE) tablet 5 mg 1 2023 aluminum & magnesium owzkakklu-wwhsjtyjcco-lgvsiuzvlmsppbo-lido maira (MAGIC MOUTHWASH) oral suspension 1-1-1 15 mL 1 12/06/2023 potassium chloride ER (KLOR- CON) extended release tablet 10 mEq 1 12/06/2023 sodium chloride 0.9% bolus 1,000 mL 1 12/03 insulin lispro (HumaLOG, ADM ELOG) 100 unit/mL injection 0-10 Units 1 12/03/2023 al & mag hydroxide bstddlvxccp-ygghljkyxuzkpfa-ocfvixmit-nyst atin (MAGIC MOUTHWASH) oral suspension 1-1-1-1 10 mL 1 11/30/2023 loperamide (IMODIUM) capsule 2 mg 1 024 ramelteon (ROZEREM) tablet 8 mg 1 Lab Orders Without Results Count Last Ordered D ate First Ordered Date POCT GLUCOSE DEVICE 95 12/30/2023 11/26/19 24 HEPATIC FUNCTION PANEL 3 12/26/202311/30 MAGNESIUM 5 12/09/2023 12/06/2023 LIPASE 1 12/04/2023 RENAL FUNCTION PANEL 1 12/01/2023 THYROID FUNCTION CASCADE 1 12/01/2023 VITAMIN D 25 HYDROXY 1 12/01/2023 CALCIUM, IONIZED 2 11/30/2023 11/28/2023 MOLD BLOOD CULTURE 1 11/28/2023 ASPERGILLUS GALACTOMANNAN ANTIGEN 1 024 EKG Orders Without Results Count Last Ordered D ate First Ordered Date ECG 12-LEAD 5 12/05/2023 11/27/2023 General Supply Count Last Ordered Date First Or dered Date WALKER W/ WHEELS (LESS THAN 350 LBS.) 2 10/202312/25/2023 Diet Count Last Ordered Date First Orde red Date ADULT DISCHARGE DIET 1 12/30/2023 Nursing Count Last Ordered Date First Orde red Date DISCHARGE ACTIVITY 4 12/30/2023 DISCHARGE CALL PROVIDER 7 12/30/2023 DISCHARGE DRESSING 1 12/30/2023 DISCHARGE INSTRUCTIONS 1 12/30/2023 HEIGHT AND WEIGHT 3 12/30/2023 12/19/2023 NURSING COMMUNICATION 7 12/30/20232023 OTHER FOLLOW UP 2 12/30/2023 SABA CATHETER - DISCONTINUE 1 12/29/2023 BATHE PATIENT 1 12/23/2023 VERIFY INFORMED CONSENT 1 11/28/2023 WEIGH PATIENT 2 11/25/2023 Consult Count Last Ordered Date First Orde red Date CONSULT TO WOUND CARE 2 12/29/20232023 IP CONSULT TO VASCULAR ACCESS TEAM 2 202311/29/2023 IP CONSULT TO ANESTHESIOLOGY 1 12/08/2023 IP CONSULT TO COLORECTAL SURGERY 1 12/02/19 IP CONSULT TO WINE CELLAR WORKER 1 12/02/2023 CONSULT TO PULMONARY - INTERVENTIONAL 1 11/2023 IP CONSULT TO PULMONOLOGY 1 11/27/2023 CONSULT TO GENERAL INFECTIOUS DISEASE 1 10/2023 IP CONSULT TO GASTROENTEROLOGY 1 11/26/2023 IP CONSULT TO NUTRITION SERVICES 1 11/26/19 Isolation Count Last Ordered Date First Orde red Date INITIATE CONTACT ISOLATION 1 12/25/2023 INITIATE AIRBORNE ISOLATION 1 11/27/2023 Admission Count Last Ordered Date First Orde red Date ADMIT TO INPATIENT 1 11/25/2023 Transfer Count Last Ordered Date First Orde red Date TRANSFER PATIENT TO NEW UNIT 1 12/24/2023 Discharge Count Last Ordered Date First Orde red Date DISCHARGE PATIENT 1 12/30/2023 CORE MEASURES Count Last Ordered Date First Ord ered Date REASON FOR NO VTE PROPHYLAXIS AT ADMISSION 1 11/25/2023 ADT Patient Update Count Last Ordered Date Firs t Ordered Date PROVIDER TREATMENT TEAM 2 12/24/202309/2023 documented in this encounter Additional Health Concerns Infection Onset Date Last Indicated Resolved Time COVID: Suspected 11/25/2023 11/25/2023 11/25/2023 10:55 PM CDT C. difficile suspected 11/25/2023 11/26/202311/25 6:32 AM CDT Ring Surveillance Comment:This flag is used to [...] the floor. 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 Cherrie Escobedo RN 11/27/2023 11/27/20232023 12:49 PM CDT MDR gram neg/ESBL 12/24/2023 12/24/2023 VRE 12/24/2023 12/24/2023 documented as of this encounter Care Teams Shade Cutter Relationship Specialty Start Date End Date Kaushal Heath MD [address] [place] [address] PCP - General Internal Medicine 10/30/23 Bigg Delarosa MD [address] [place] [address] Referring Physician Gastroenterology 10/15/23 Jefe Choe MD [address] [place] [address] Referring Physician Gastroenterology 10/15/23 Melissa Rhodes MD [address] [facility] G[facility], [address] [address] Consulting Physician Gynecologic Oncology 10/30/23 documented as of this encounter
--- OUTSIDE RECORDS SUMMARY | 2024-02-08 04:07 | XMS_ITS | Encounter Summary ---
Author Organization [facility] Healthcare Address [address] [place] [address] Care Team Providers Care Saturator Operator Name Role Phone Bigg Delarosa MD Unavailable [phone] Jefe Choe MD Unavailable + Melissa Rhodes MD Unavailable [phone] Kaushal Heath MD Primary Care Provider + [phone] Reason for Visit * Auth/Cert (Routine) Specialty Diagnoses / Procedures Referred By Contac t Referred To Contact Diagnoses Ulcerative colitis (HCC) Bilateral ovarian cysts Malnutrition (CMS/HCC) (HCC) Physical deconditioning Procedures na Referral ID Status Reason Start Date Expiration Date Visits Re quested Visits Authorized [id number] 1 1 Encounter Details Date Type Department Care Team (Late st Contact Info) Description 12/24/2023 11:43 AM CAN FILLING ROOM SWEEPER Anesthesia Event [facility] Operating Room [address] [place] [id number] Stan Malik MD [address] [place] [address] Joya Dennis MD [address] [place] [address] Anesthesia Record Procedure Summary Procedure Name Responsible Anesthesiologist Anesthesia Start Time Anesthesia Stop Time (MUTCH/ MCCOURTCOMBO) RESECTION LEFT COLON (Left: Abdomen) Stan Malik MD 12/24/23 1143 12/24/23 1615 Events Date Time Event Comment 12/24/2023 1052 In Preop 1143 An Start 1146 In Room 1149 An Start Data 1157 An Induction The patient was reevaluated immediately before moderate or deep sedation use and before anesthesia induction. 1158 An Intubation 1219 Proc Start 1221 Anesthesia Ready 1231 Incision Start 1500 Quick Note UOP reflects ol iguria and lien bleeding. Urology called back to room to assess. 1504 Local injected by surgeon 1538 Quick Note Saba irrigated by urology; clots expressed. No concerns. 1555 Proc Fin 1555 Out of Room 1556 An Extubation 1556 an stop data 1615 Handoff to RN I completed my handoff to the receiving nurse during which we: 1. Patient identified 2. Responsible provider identified 3. Pertinent medical history reviewed 4. Procedure type and surgical course discussed 5. Intraoperative anesthetic management and any significant issues discussed 6. Expectations and concerns for postop period discussed 7. Questions solicited from receiving nurse 8. Patient disposition at the time of handoff: PACU 1615 An Stop 1804 Release from care Meds Name Total midazolam PF 1 mg lidocaine (cardiac) syringe 2 % 60 mg propofol 120 mg fentaNYL 100 mcg HYDROmorphone 2 mg/mL 0.8 mg rocuronium 100 mg phenylephrine 100 mcg/mL 1,000 mcg ondansetron PF (ZOFRAN) 2 mg/mL injectio n 4 mg ertapenem (INVanz) 1,000 mg in sterile w ater 10 mL (100 mg/mL) IV syringe 1,000 mg calcium chloride 1 g famotidine 20 mg sugammadex 150 mg phenylephrine infusion (100 mcg/mL) 5.15 mg magnesium sulfate 2 g/50 mL 2 g norepinephrine 16 mcg Lactated Ringer's (LR) infusion 2,000 mL albumin human bottle 5 % 500 mL * Agents Name O2% N2O O2 N2O Air Sevoflurane Inspired Sevoflurane * Blood No blood administrations on file. Lines, Drains, and Airways Type Details Placement Removal Wound 12/24/23; 1242; N; Incision; Abdomen 12/24/23 1242 by Eugenie Gauthier RN Wound 12/24/23; 1321; N; Non-incision; Other (Comment) (ureteral stents) 12/24/23 1321 by Eugenie Gauthier RN Ostomy 12/24/23; 1524; No; Colostomy; LUQ 12/24/23 1524 by Meka Mares RN Peripheral IV Catheter Size: 20 G; Orientation: Anterior, Distal, Left; Location: Forearm; Removal Date: 12/26/23; Removal Time: 0134 12/09/23 1555 by 12/26/23 0134 by Zoe Guidry RN Urethral Catheter Placement Date: 12/24/23; Inserted by: Dr. Santacruz; Type: Non-latex, Temperature probe; Balloon Size: 10 mL; Urine Returned: Yes; Removal Date: 12/29/23; Removal Time: 0855; Removal Reason: Per order 12/24/23 0000 by Meka Mares RN 12/29/23 0855 by Yakelin Hill Peripheral IV Placement Date: 12/24/23; Placement Time: 1106; Catheter Size: 18 G; Orientation: Right; Location: Hand; Site Prep: Alcohol; Insertion Attempts: 1; Patient Tolerance: Tolerated well; Removal Date: 12/26/23; Removal Time: 0200 12/24/23 1106 by Valeri Benitez 12/26/23 0200 by Zoe Guidry RN ETT Placement Date: 12/24/23; Placement Time: 1338 (created via procedure documentation); Mask Ventilation: 0; Technique: Direct laryngoscopy; Type: ETT - single; Single Lumen Tube Size: 7 mm; Cuffed: Yes; Laryngoscope: Johnny; Blade Size: 3; Location: Oral; Grade View: Grade I; Insertion Attempts: 1; Placement Verification: Auscultation, Capnometry; Removal Date: 12/24/23; Removal Time: 1556 12/24/23 1338 by Gin Daniels CRNA 12/24/23 1556 by Gin Daniels CRNA Arterial Line Placement Date: 12/24/23; Placemnt Time: 1339 (created via procedure documentation); Size: 20 G; Orientation: Left; Location: Radial; Securement: Taped, Transparent dressing; Removal Date: 12/24/23; Removal Time: 1840; Removal Reason: Per order 12/24/23 1339 by Gin Daniels, CLOCK SMITH 12/24/23 1840 by Pavel Ordonez RN documented in this encounter Social History Tobacco Use Types Packs/Day Years Used Date Smoking Tobacco: Never Smokeless Tobacco: Never [facility] Utilities Answer Date Recorded In the [...] often do you attend chur ch or catholic services? 1 to 4 times per year 11/29/2023 Do you belong to any clubs o r organizations such as taoist groups, unions, fraternal or athletic groups, or [...] were you homeless or living in a halfway (including now)? No 11/29/2023 Personal Safety Answer [...] on file documented as of this encounter OR Notes * Anesthesia Postprocedure Evaluation - Ravi Galvin MD - 12/24/2023 6:04 PM CST Patient: Farhana Russo Procedure Summary Date: 12/24/23 Room / Location: [facility] OR POD 1 ROOM 331 / [facility] OR POD 1 Anesthesia Start: 1143 Anesthesia Stop: 1615 Procedures: (CHRIS/ NOEMITCOMBO) RESECTION LEFT COLON (Left: Abdomen) COLOSTOMY-END (Abdomen) HYSTERECTOMY ABDOMINAL SALPINGO-OOPHORECTOMY (Bilateral: Pelvis) PLACEMENT PREOPERATIVE STENT - URETERAL (Bilateral: Ureter) Diagnosis: Ulcerative pancolitis with complication (CMS/HCC) (HCC) (Ulcerative pancolitis with complication (CMS/HCC) (HCC) [K51.019]) Surgeons: Yo Ferreira MD; Melissa Rhodes MD; Jak Meehan MD Responsible Provider: Stan Malik MD Anesthesia Type: general ASA Status: 3 Anesthesia Type: general Last vitals BP 114/57 Pulse 94 Temp 36.4 ??C (97.5 ??F) Resp 17 SpO2 96% Anesthesia Post Evaluation Patient location during evaluation: PACU Patient participation: complete - patient participated Level of consciousness: fully awake Pain score: 0 Pain management: adequate Airway patency: adequate Evidence of recall: no Cardiovascular status: acceptable Respiratory status: acceptable and room air Hydration status: acceptable Pt is: normothermic Nausea/Vomiting status: none Comments: To floor No notable events documented. FILLING ROOM SWEEPER * Anesthesia Procedure Notes - Gin Daniels CRNA - 12/24/2023 1:38 PM CSTAssociated Order(s): Arterial Line Arterial Line Patient location: OR Indication: continuous blood pressure monitoring and blood sampling needed Staff: Placed by: CLOCK SMITH: Gin Daniels CRNA Procedure prep: Prep solution: [...] patient tolerated procedure well with no complications FILLING ROOM SWEEPER * Anesthesia Procedure Notes - Gin Daniels CRNA - 12/24/2023 1:37 PM CSTAssociated Order(s): Airway Airway Patient location: OR Urgency: elective Indications for airway management: anesthesia Difficult airway: no Staff: Supervising provider: Joya Dennis MD Placed by: CLOCK SMITH: Gin Daniels CRNA Emergent airway documentation: Risks [...] with: silk tape Number of attempts: 1 FILLING ROOM SWEEPER * Anesthesia Preprocedure Evaluation - Stan Malik MD - 12/24/2023 10:24 AM CST Images from the original note were not included. Anesthesia Evaluation Farhana Russo is a 63 y.o. female (MUTCH/ MCCOURTCOMBO) RESECTION LEFT COLON (Abdomen) COLOSTOMY (Abdomen) RESECTION TOTAL COLON (Abdomen) END ILEOSTOMY (Abdomen) HYSTERECTOMY ABDOMINAL SALPINGO-OOPHORECTOMY (Bilateral: Pelvis) PLACEMENT PREOPERATIVE STENT - URETERAL (Bilateral: Ureter) Pre-Op Diagnosis Codes: * Ulcerative pancolitis with complication (CMS/HCC) (HCC) [K51.019] HISTORY HPI Farhana Russo is a 63 y/o female with notable PMH of DM2, HTN, and recently diagnosed IBD (originally thought to be UC but is now more likely to be Crohn's) who has persistent colitis of her sigmoid colon with microperforation, multiple abscesses of the liver and spleen, left upper lobe lung lesions, pleural effusion and adnexal mass. Past Medical History Cardiovascular + Hypertension + OK Number of OK's: 1. Date of last OK: 11/2023. + Other arrhythmia (SVT after BMs; leading to NSTEMI likely 2/2 demand ischemia) Respiratory Comments: Cavitary lung lesions Hepatic / Heme Comments: IBD - possibly Crohn's Multiple liver and spleen abscesses Endocrine / Other + Diabetes mellitus Review of Systems Pertinent negatives: productive cough; wheezing; SOB; recent cold/flu; fever; chest pain and palpitations Patient Active Problem List Diagnosis Date Noted [...] (IMODIUM) 2 mg capsule 11/25/2023 -- -- Grabiel Logan MD losartan (COZAAR) 25 mg tablet 11/25/2023 07/31/23 -- Grabiel Logan MD magnesium oxide 500 mg capsule 11/25/2023 -- -- Grabiel Logan MD mesalamine (CANASA) 1,000 mg suppository Past Week 10/08/23 -- Melissa Rhodes MD Insert 1 suppository (1,000 mg total) into the rectum nightly metroNIDAZOLE (FLAGYL) 500 mg tablet 11/25/2023 -- -- Grabiel Logan MD pantoprazole DR (PROTONIX) 40 mg EC tablet 11/25/2023 09/30/23 -- Grabiel Logan MD potassium chloride ER 10 mEq CR tablet 11/25/2023 10/30/23 -- Grabiel Logan MD UNABLE TO FIND -- -- -- Grabiel Logan MD Current Facility-Administered Medications: acetaminophen (TYLENOL) tablet 1,000 mg, 1,000 mg, oral, Q6H PRN, 1,000 mg at 12/23/23843 benzonatate (TESSALON) capsule 100 mg, 100 mg, oral, TID PRN, 100 mg at 12/21/23 175 ciprofloxacin (CIPRO) tablet 500 mg, 500 mg, oral, BID - special, 500 mg at 12/24/23 0551 [Held by Provider] enoxaparin (LOVENOX) syringe 40 mg, 40 mg, subcutaneous, Daily-2100, 40 mg at 12/22/232027 folic acid (FOLVITE) tablet 1 mg, 1 mg, oral, Daily, 1 mg at 12/23/23843 [Held by Provider] losartan (COZAAR) tablet 25 mg, 25 mg, oral, Daily, 25 mg at 12/09/2343 metroNIDAZOLE (FLAGYL) tablet 500 mg, 500 mg, oral, TID, 500 mg at 12/23/232131 multivitamin with folic acid 400 mcg tablet 1 tablet, 1 tablet, oral, Daily, 1 tablet at 12/23/23843 neomycin (MYCIFRADIN) tablet 1,000 mg, 1,000 mg, oral, TID, 1,000 mg at 12/23/232131 ondansetron (ZOFRAN) injection 4 mg, 4 mg, intravenous, Q4H PRN, 4 mg at 12/24/[address] (PROTONIX) extended release tablet 40 mg, 40 mg, oral, Daily, 40 mg at 12/23/23 0845 thiamine (VITAMIN B1) tablet 100 mg, 100 mg, oral, Daily, 100 mg at 12/23/23 0844 Social History Tobacco Use Smoking Status Never Smokeless Tobacco Never Alcohol Use: Not At Risk (11/13/2023) AUDIT-C Frequency of Alcohol Consumption: Never Average Number of Drinks: Patient does not drink Frequency of Binge Drinking: Never Substance and Sexual Activity Drug Use Never Family History Problem Relation Age of Onset Diabetes Mother Emphysema Father Anesthesia problems Neg Hx Malig Hypertension Neg Hx Malig Hyperthermia Neg Hx Pseudochol deficiency Neg Hx Vitals: 12/23/23 2305 12/24/23 0535 12/24/23 0744 BP: 123/63 122/63 Pulse: 115 111 101 Resp: 20 18 Temp: 37 ??C (98.6 ??F) 37.1 ??C (98.8 ??F) SpO2: 100% 94% 95% PT: 12/22/2023: 15.6 sec (H) INR: 12/22/2023: 1.43 (H) APTT: 11/28/2023: 30 sec Hgb A1C: No results found for requested labs within last 30 days. CBC RBC: 12/22/2023: 3.20 M/cumm (L) RDW: No results found for requested labs within last 30 days. MCHC: 12/22/2023: 31.3 g/dL (L) MCH: 12/22/2023: 26.6 pg (L) MCV: 12/22/2023: 85.0 fL Hct: 12/22/2023: 27.2 % (L) Hgb: 12/22/2023: 8.5 g/dL (L) WBC: 12/22/2023: 13.1 K/cumm (H) MPV: 12/22/2023: 9.4 fL Platelets: 12/22/2023: 395 K/cumm RDW CV: 12/22/2023: 18.6 % (H) RDW Sd: 12/22/2023: 57.4 fL (H) BMP Glucose: 12/22/2023: 174 mg/dL Calcium: 12/22/2023: 8.7 mg/dL Sodium: 12/22/2023: 133 mmol/L (L) Potassium: 12/22/2023: 4.7 mmol/L CO2: 12/22/2023: 24 mmol/L Chloride: 12/22/2023: 98 mmol/L BUN: 12/22/2023: 22 mg/dL Creatinine: 12/22/2023: 0.78 mg/dL Short Blessed Total Score: 0 DOS Physical Exam Attestation: This PAT evaluation 12/24/2023. Airway Exam: Mallampati: III Cervical ROM: FROM TM distance: 3.5 Cardiovascular Exam: Rate: regular Rhythm: regular Pulmonary Exam: LCTA, bilat EENT Exam: trachea midline Dental Exam: Appears intact (Lower implant that is permanent and not loose) Skin Exam: Skin is warm. Abdominal Exam: Abdomen is soft. Current state: Patient's current state is cooperative. Anesthesia Plan ASA 3 My patient is approved for the Anesthesia Controlled Medication protocol when under care of a CLOCK SMITH Planned anesthesia: General Team communication plan: oral ET tube Invasive Monitors Planned: Invasive monitors planned: arterial line. Induction: Induction: intravenous. Postoperative Plan: Postoperative administration opioids intended. No postoperative mechanical ventilation intended. Patient's planned disposition post procedure is Floor. Planned trial extubation. Informed Consent: Discussed plan with CLOCK SMITH. Anesthesia plan and risks discussed with patient. Consent and Attending signature: I and/or my designee have discussed the anesthesia plan, benefits, possible alternatives, parental presence at time of induction (if indicated), and clinically relevant risks that may include dental injury, unintentional awareness, and/or other complications. The patient and/or parent/legal guardian understand, and agree to proceed. All questions answered. FILLING ROOM SWEEPER FILLING ROOM SWEEPER FILLING ROOM SWEEPER documented in this encounter Plan of Treatment Not on file documented as of this encounter Procedures Procedure Name Priority Date/Time Associated Diagnosis Comments MS AN PROCEDURE PLACEHOLDER Routine 12/24/2023 1:38 PM CAN FILLING ROOM SWEEPER MS AN PROCEDURE PLACEHOLDER Routine 12/24/2023 1:37 PM CAN FILLING ROOM SWEEPER MS AN ELECTIVE ENDOTRACHEAL AIRWAY Routine 12/24/2023 1:37 PM CAN FILLING ROOM SWEEPER documented in this encounter Results * MS AN PROCEDURE PLACEHOLDER (12/24/2023 1:38 PM CAN FILLING ROOM SWEEPER) Narrative Gin Daniels CRNA - 12/24/2023 1:38 PM CAN FILLING ROOM SWEEPER Gin Daniels CRNA ? 12/24/2023 ??1:39 PM Arterial Line Patient location: OR Indication: continuous blood pressure monitoring and blood sampling needed Staff: Placed by: CLOCK SMITH: Gin Daniels CRNA Procedure prep: Prep solution: [...] MD ANESTHESIA ORDERABLE S Final Result * MS AN ELECTIVE ENDOTRACHEAL AIRWAY, MS AN PROCEDURE PLACEHOLDER (12/24/2023 1:37 PM CAN FILLING ROOM SWEEPER) Narrative Gin Daniels CRNA - 12/24/2023 1:37 PM CAN FILLING ROOM SWEEPER Gin Daniels CRNA ? 12/24/2023 ??1:38 PM Airway Patient location: OR Urgency: elective Indications for airway management: anesthesia Difficult airway: no Staff: Supervising provider: Joya Dennis MD Placed by: CLOCK SMITH: Gin Daniels CRNA Emergent airway documentation: Risks [...] with: silk tape Number of attempts: 1 us Stan Malik MD ANESTHESIA ORDERABLE S Final Result documented in this encounter Visit Diagnoses Not on filedocumented in this encounter Administered Medications Inactive Administered Medications - up to 3 most recent administrations Medication Order MAR Action Action Date Dose Rate Site albumin 5 % bottle intravenous, Continuous PRN, Starting on Fri12/24/23 at 1410, Anesthesia Intra-op New Bag 12/24/2023 2:58 PM CAN FILLING ROOM SWEEPER New Bag 12/24/2023 2:10 PM CAN FILLING ROOM SWEEPER calcium chloride IV syringe intravenous, As needed, Starting on Fri12/24/23 at 1408, Anesthesia Intra-op Given 12/24/2023 2:51 PM CAN FILLING ROOM SWEEPER 0.5 g Given 12/24/2023 2:08 PM CAN FILLING ROOM SWEEPER 0.5 g ertapenem (INVanz) 1,000 mg in sterile water 10 mL (100 mg/mL) IV syringe 1,000 mg, intravenous, at 120 mL/hr, Administer over 5 Minutes, Once, On Fri12/24/23 at 1130, For 1 dose, Pre-Op, Give within 60 minutes of incision. For IV Push administration: add 10 mL of sterile water for injection or NS to 1g vial to achieve a final concentration of 100 mg/mL. Do NOT mix with dextrose or other medications., Indications: Prophylaxis, SurgicalIndications:Prophylaxis, Surgical New Bag 12/24/2023 12:20 PM CAN FILLING ROOM SWEEPER 1,000 mg famotidine (PEPCID) injection intravenous, Administer over 2 Minutes, As needed, Starting on Fri12/24/23 at 1143, Anesthesia Intra-op Given 12/24/2023 11:43 AM CAN FILLING ROOM SWEEPER 20 mg fentaNYL (SUBLIMAZE) preservative free injection intravenous, As needed, Starting on Fri12/24/23 at 1157, Anesthesia Intra-op Given 12/24/2023 11:57 AM CAN FILLING ROOM SWEEPER 100 mc g HYDROmorphone (DILAUDID) injection intravenous, Administer over 2 Minutes, As needed, Starting on Fri12/24/23 at 1329, Anesthesia Intra-op Given 12/24/2023 1:29 PM CAN FILLING ROOM SWEEPER 0.4 mg Given 12/24/2023 12:35 PM CAN FILLING ROOM SWEEPER 0.4 mg Lactated Ringer's (LR) infusion 30 mL/hr, intravenous, Continuous, Starting on Fri12/24/23 at 1130, Pre-Op New Bag 12/24/2023 3:38 PM CAN FILLING ROOM SWEEPER 30 mL/hr New Bag 12/24/2023 1:36 PM CAN FILLING ROOM SWEEPER 30 mL/hr Rate/Dose Verify 12/24/2023 11:43 AM CAN FILLING ROOM SWEEPER 30 mL/ hr lidocaine (cardiac) (XYLOCAINE) preservative free injection intravenous, As needed, Starting on Fri12/24/23 at 1157, Anesthesia Intra-op, Indications: Ventricular ArrhythmiasIndications:Ventricular Arrhythmias Given 12/24/2023 11:57 AM CAN FILLING ROOM SWEEPER 60 mg magnesium sulfate 2 g/50 mL in water (premix) intravenous, Administer over 60 Minutes, As needed, Starting on Fri12/24/23 at 1239, Anesthesia Intra-op Given 12/24/2023 12:39 PM CAN FILLING ROOM SWEEPER 2 g midazolam (VERSED) 2 mg/2 mL preservative free injection intravenous, Administer over 2 Minutes, As needed, Starting on Fri12/24/23 at 1143, Anesthesia Intra-op Given 12/24/2023 11:43 AM CAN FILLING ROOM SWEEPER 1 mg norepinephrine (LEVOPHED) injection intravenous, As needed, Starting on Fri12/24/23 at 1403, Anesthesia Intra-op Given 12/24/2023 2:03 PM CAN FILLING ROOM SWEEPER 16 mcg ondansetron (ZOFRAN) injection intravenous, Administer over 2 Minutes, As needed, Starting on Fri12/24/23 at 1507, Anesthesia Intra-op Given 12/24/2023 3:07 PM CAN FILLING ROOM SWEEPER 4 mg phenylephrine (FERNANDO-SYNEPHRINE) 1 mg/10 mL (100 mcg/mL) in sodium chloride 0.9% (premix) intravenous, As needed, Starting on Fri12/24/23 at 1202, Anesthesia Intra-op Given 12/24/2023 3:34 PM CAN FILLING ROOM SWEEPER 200 mcg Given 12/24/2023 1:50 PM CAN FILLING ROOM SWEEPER 200 mcg Given 12/24/2023 12:56 PM CAN FILLING ROOM SWEEPER 100 mcg phenylephrine (FERNANDO-SYNEPHRINE) 5 mg/50 mL (100 mcg/mL) in sodium chloride 0.9% (premix) intravenous, Continuous PRN, Starting on Fri12/24/23 at 1310, Anesthesia Intra-op Rate/Dose Change 12/24/2023 3:38 PM CAN FILLING ROOM SWEEPER 0.3 mcg/kg/min 9.954 mL/hr Rate/Dose Change 12/24/2023 3:29 PM CAN FILLING ROOM SWEEPER 0.5 mcg/kg/min 16. 59 mL/hr Rate/Dose Change 12/24/2023 3:02 PM CAN FILLING ROOM SWEEPER 0.2 mcg/kg/min 6.6 36 mL/hr propofoL (DIPRIVAN) 10 mg/mL IV intravenous, As needed, Starting on Fri12/24/23 at 1157, Anesthesia Intra-op Given 12/24/2023 11:57 AM CAN FILLING ROOM SWEEPER 120 mg rocuronium (ZEMURON) injection intravenous, As needed, Starting on Fri12/24/23 at 1157, Anesthesia Intra-op Given 12/24/2023 12:35 PM CAN FILLING ROOM SWEEPER 30 mg Given 12/24/2023 11:57 AM CAN FILLING ROOM SWEEPER 70 mg sugammadex (BRIDION) 100 mg/mL intravenous solution intravenous, As needed, Starting on Fri12/24/23 at 1520, Anesthesia Intra-op Given 12/24/2023 3:25 PM CAN FILLING ROOM SWEEPER 50 mg Given 12/24/2023 3:23 PM CAN FILLING ROOM SWEEPER 50 mg Given 12/24/2023 3:20 PM CAN FILLING ROOM SWEEPER 50 mg documented in this encounter Additional Health Concerns [...] is to be collected (Reach out to for order) Patient does NOT need isolation, patient can travel off the floor. 11/26/2023 11/26/2023 12/27/2023 11:50 PM CAN FILLING ROOM SWEEPER documented as of this encounter Care Teams Saturator Operator Relationship Specialty Start Date End Date Kaushal Heath MD [address] [place] [address] PCP - General Internal Medicine 10/30/23 Bigg Delarosa MD [address] [place] [address] [place] [address] Referring Physician Gastroenterology 10/15/23 Jefe Choe MD [address] [facility] [address] [facility] [address] [place] [address] Referring Physician Gastroenterology 10/15/23 Melissa Rhodes MD [address] [facility] GYNECOLOGIC ONCOLOGY, [address] [address] Consulting Physician Gynecologic Oncology 10/30/23 documented as of this encounter
--- OUTSIDE RECORDS SUMMARY | 2024-02-08 04:08 | XMS_ITS | Encounter Summary ---
Author Organization [facility] Healthcare Address [address] [place] [address] Care Team Providers Care Clinical Data Management Manager Name Role Phone Bigg Delarosa MD Unavailable [phone] Jefe Choe MD Unavailable + Melissa Rhodes MD Unavailable [phone] Kaushal Heath MD Primary Care Provider + [phone] Encounter Details Date Type Department Care Team (Late st Contact Info) Description 12/08/2023 2:36 PM CDT Anesthesia Event [facility] [address] [place] [id number] Chris Ricci NP [address] [facility] [phone] [place] [address] Anesthesia Record Procedure Summary Procedure Name Responsible Anesthesiologist Anesthesia Start Time Anesthesia Stop Time Colon resection Events No events on file. Meds * Agents No agents on file. * Blood No blood administrations on file. Lines, Drains, and Airways Type Details Placement Removal Wound 12/24/23; 1242; N; I ncision; Abdomen 12/24/23 1242 by Eugenie Gauthier RN Wound 12/24/23; 1321; N; N on-incision; Other (Comment) (ureteral stents) 12/24/23 1321 by Eugenie Gauthier RN Ostomy 12/24/23; 1524; No; Colostomy; L UQ 12/24/23 1524 by Meka Mares RN Wound 12/26/23; 1100; N; [place]; Renéyx 12/26/23 1100 by Teetee Edwards RN documented in this encounter Social History Tobacco Use Types Packs/Day Years Used Date Smoking Tobacco: Never Smokeless Tobacco: Never [facility] Utilities Answer Date Recorded In the [...] often do you attend chur ch or islam services? 1 to 4 times per year 11/29/2023 Do you belong to any clubs o r organizations such as protestant groups, unions, fraternal or athletic groups, or [...] any time in the past 12 m [facility], were you homeless or living in a nursing home (including now)? No 11/29/2023 Personal Safety Answer Date Recorded Have you ever been in or are you currently in a harmful physical or emotional relationship or is someone making you feel afraid or unsafe? Denies 11/25/2023 Comments No Sex and Gender Information Value Date Recorded Sex Assigned at Not on file Legal Sex Female 3:11 PM CDT Gender Identity Not on file Sexual Orientation Not on file documented as of this encounter OR Notes * Anesthesia Preprocedure Evaluation - Chris Ricci NP - 12/08/2023 2:36 PM CDT Images from the original note were not included. [facility] Preoperative [facility] Planning Preoperative Evaluation Record Evaluation type/location: IPAP at [facility] Planned procedure site: Not Scheduled Date: 12/08/23 Anesthesia Evaluation Farhana Russo is a 63 y.o. female Colon resection * No Diagnosis Codes entered * HISTORY HPI Farhana Russo is a 63 [...] + Hypertension (unsure of home BP) + GA (12/03 Trops [id number] after acute SVT 12/03. Suspect related to demand ischemia.) Date of last GA: 12/04/23. 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 paper copy, reviewed w/ patient, [...] (CIPRO) 500 mg tablet 11/25/2023 -- -- Grabiel Logan MD cyanocobalamin (Vitamin B-12) 2,500 mcg tablet, sublingual 11/25/2023 -- -- Grabiel Logan MD ferrous sulfate 325 mg (65 mg [...] mg at 12/06/232137 al & mag hydroxide nngrjbjtuzh-kyppkklglcmxsht-dqkdejrwh-nystatin (MAGIC MOUTHWASH) oral suspension 1-1-1-1 15 mL, [...] 1 mg, oral, Daily, 1 mg at 12/08/23 100 glucagon injection 1 mg, 1 mg, intramuscular, Q30 Min PRN guaiFENesin ER (MUCINEX) extended release tablet 1,200 mg, 1,200 mg, oral, BID PRN, 1,200 mg at 12/07/232103 insulin lispro (HumaLOG, ADMELOG) 100 unit/mL injection 0-10 Units, 0-10 Units, subcutaneous, TID with meals, 2 Units at 12/06/23 115 insulin lispro (HumaLOG, ADMELOG) 100 unit/mL injection 0-5 Units, 0-5 Units, subcutaneous, Nightly, 1 Units at 12/07/232230 losartan (COZAAR) tablet 25 mg, 25 mg, oral, Daily, 25 mg at 12/08/23 100 metroNIDAZOLE (FLAGYL) tablet 500 mg, 500 mg, oral, BID, 500 mg at 12/08/23 100 multivitamin with folic acid 400 mcg tablet 1 tablet, 1 tablet, oral, Daily, 1 tablet at 12/08/23 100 ondansetron (ZOFRAN) injection 4 mg, 4 mg, [...] 0.82 mg/dL Short Blessed Total Score: 0 documented in this encounter Plan of Treatment [...] the floor. 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 documented as of this encounter Care Teams Clinical Data Management Manager Relationship Specialty Start Date End Date Kaushal Heath MD [address] [place] [address] PCP - General Internal Medicine 10/30/23 Bigg Delarosa MD [address] [facility] [address] [place] [address] Referring Physician Gastroenterology 10/15/23 Jefe Choe MD [address] [facility] [address] [facility] [address] [place] [address] Referring Physician Gastroenterology 10/15/23 Melissa Rhodes MD [address] [facility] GYNECOLOGIC ONCOLOGY, [address] [address] Consulting Physician Gynecologic Oncology 10/30/23 documented as of this encounter
--- OUTSIDE RECORDS SUMMARY | 2024-02-08 04:08 | XMS_ITS | Encounter Summary ---
Author Organization [facility] Healthcare Address [address] [place] [address] Care Team Providers Care Medical Device Engineer Name Role Phone Bigg Delarosa MD Unavailable [phone] Jefe Choe MD Unavailable + Melissa Rhodes MD Unavailable [phone] Kaushal Heath MD Primary Care Provider + [phone] Reason for Visit * Auth/Cert (Routine) Specialty Diagnoses / Procedures Referred By Contac t Referred To Contact Diagnoses Ulcerative colitis (HCC) Bilateral ovarian cysts Malnutrition (CMS/HCC) (HCC) Physical deconditioning Procedures na Referral ID Status Reason Start Date Expiration Date Visits Re quested Visits Authorized [id number] 1 1 Encounter Details Date Type Department Care Team (Late st Contact Info) Description 12/24/2023 12:10 PM INSOLE AND HEEL STIFFENER - 12/24/2023 5:55 PM INSOLE AND HEEL STIFFENER Surgery [facility] Operating Room [address] [place] [address] Yo Perez MD [id number] [place], [place] [id number] (JHON/ JUAN CARLOS) RESECTION LEFT COLON Surgery Details Date/Time Status Location OR Service Patient Class Case Class Case Type Trauma Case? 12/24/2023 12:10 PM Posted [facility] OR POD 1 331 Colorectal Inpatient Elective Panel 1 Procedure [facility] Anes Op Region Wound Class Comments (JHON/ JUAN CARLOS) RESECTION LEFT COLON Left General Abdomen Class II - Clean Contaminated COLOSTOMY-END N/A General Abdomen Class II - Clean Contaminated Panel 2 Procedure [facility]RB Anes Op Region Wound Class Comments HYSTERECTOMY ABDOMINAL SALPINGO-OOPHORECTOMY Bilateral General Pelvis Class II - Clean Contaminated Panel 3 Procedure LRB Anes Op Region Wound Class Comments PLACEMENT PREOPERATIVE STENT - URETERAL Bilateral Choice Ureter Class II - Geraldine n Contaminated Surgeon Surgeon Role Service Panel Yo Perez MD Primary Colorectal 1 Jak Meehan MD Primary Urology 3 Quinton Moe MD Fellow Obstetrics / Gy necology 2 Vicki King MD Resident - Assisting General Surgery 1 Mau Trotter MD Resident - Assisting Obst etrics / Gynecology 2 Melissa Rhodes MD Primary Obstetrics / Cemetery Laborer ecology 2 Flako Santacruz MD Resident - Assisting Urology 3 Flako Santacruz MD Resident - Assisting Urology 3 Case Notes 12/22@0852- Panel being added per Vicki via phone call (EF) documented in this encounter Social History Tobacco Use Types Packs/Day Years Used Date Smoking Tobacco: Never Smokeless Tobacco: Never Tobacco Cessation:Counseling Given: Not Answered [facility] Utilities Answer Date Recorded In the past 12 months has [employer], gas, oil, or water [employer] threatened to shut off services in [...] How often do you attend chur or taoism services? 1 to 4 times per year 11/29/2023 Do you belong to any clubs o r organizations such as adventist groups, unions, fraternal or athletic groups, or [...] any time in the past 12 [facility], were you homeless or living [...] Sign Reading Time Taken Comments Blood Pressure 109/56 12/24/2023 5:50 PM INSOLE AND HEEL STIFFENER Pulse 93 12/24/2023 5:50 PM INSOLE AND HEEL STIFFENER Temperature 36.4 ??C (97.5 ??F) 12/24/2023 5:50 PM CS T Respiratory Rate 17 12/24/2023 5:50 PM INSOLE AND HEEL STIFFENER Oxygen Saturation 96% 12/24/2023 5:50 PM INSOLE AND HEEL STIFFENER Inhaled Oxygen Concentration - - Weight 55.3 kg (122 lb) 12/24/2023 11:05 AM INSOLE AND HEEL STIFFENER Height 154.9 cm (5' 0.98 ) 12/23/2023 8:35 AM CS T Body Mass Index 23.06 12/23/2023 8:35 AM INSOLE AND HEEL STIFFENER documented in this encounter Discharge Summaries * Debbie Baltazar MD - 12/30/2023 1:26 PM CST Inpatient Discharge Summary BRIEF OVERVIEW Admitting Provider: Maxime Lee MD Discharge Provider: Yo Perez MD Primary Care Physician at Discharge: Kaushal Heath MD [phone] Admission Date: 11/25/2023 Discharge Date: 12/30/2023 [facility]mission [facility] Problems/Diagnoses: Principal Problem: Physical deconditioning Active Problems: [...] ostomy teaching 12/25: consistent carb diet, dc'd SOFTWARE CONFIGURATION MANAGER pump, po pain meds, holding lovenox ON: [...] process Osmolality, urine In process Thyroid Function [place] In process Vitamin D 25 hydroxy In [...] supplements upon discharge. Oral nutrition supplements are awqva-lf-qdhil liquid formulas with added nutrients including carbohydrates, [...] Service Line: Home Health Primary disciplines requested: Custodial Home Health Services: Wound/Ostomy Care Does the patient have a wound vac?: No Wound Information: ostomy care and teaching, wound check, if abdominal jesu present, remove 14 days post op Requested Start of Care Date: 24-48 hours Physician to follow patient's care (the person listed here will be responsible for signing ongoing orders): Other Comment: Mutch I attest that I or another qualified [...] 2:30 PM Yo Perez MD C/R MOB4 [place] Contact Information for Follow-ups Other Follow-up Next [...] Yo Perez MD at 12/30/2023 4:26 PM INSOLE AND HEEL STIFFENER LE AND HEEL STIFFENER LE AND HEEL STIFFENER documented in this encounter Discharge Instructions * Discharge Instructions* Jhonny Kirby MD - 12/03/2023 3:41 PM CDT Dear Mrs. Russo, You were admitted at [facility] from November 25, 2023 through December 09, [...] primary care physician, Dr. Heath, and your medart operator, Dr. Jung. We have updated them about your hospitalization. * Discharge Instr - Diet* MairaVonda Lizette, ESTHER - 12/30/2023 9:17 AM INSOLE AND HEEL STIFFENER Colostomy Nutrition Therapy: Guidelines to Avoid Problems. [...] supplements upon discharge. Oral nutrition supplements are krfrk-yu-msdsp liquid formulas with added nutrients including carbohydrates, [...] if you need further options for supplementation. LE AND HEEL STIFFENER LE AND HEEL STIFFENER LE AND HEEL STIFFENER * Discharge Instr - Other Orders* Shazia Mario RN - 12/30/2023 2:36 PM INSOLE AND HEEL STIFFENER Home Health agency: [facility] You should be contacted by the home health care agency within 1-2 days regarding scheduling a visit. If you don't hear from them, please call the number listed above to follow-up. Thank you LE AND HEEL STIFFENER * Attachments The following attachments cannot be sent through Care Everywhere. * Colectomy (Discharge Care) (Bermudian) * Colectomy Diet (Discharge Care) ([place]) documented in this encounter Medications at Time [...] - 12/30/2023 2:39 PM CST 10:33 am CM called [facility] and and left a voicemail for Katherine in intake. 11:19 am Katherine returned CM's phone call and confirmed agency was able to accept with a SOC of Friday or Friday and to fax referral to fax# [phone]. CM faxed referral and confirmed this agency was patient's first choice and notified patient of the SOC date. Patient informed CM that she [employer] is her employer. CM faxed discharge summary and updated documentation from today to agency. 2:46 pm CM called staffing and scheduling coordinator, Katherine, and notified of patient's discharge. Katherine confirmed patient was on the scheduled to be seen FridayJanuary 02. 12/26/23 1318 Discharge Summary Discharge Disposition Home health care Recommended Discharge Level of Longterm health care Actual Discharge Level of Longterm health care Does Actual Level of Care Match Care Team Recommendation? Yes Post Acute Care Plan Home Care Services Yes (new colostomy) Type of Home Care Services Nurse visit Home Care Services Name and Phone Number [facility] OP Services N/A DME [...] discharge needs arise, please contact the covering child welfare caseworker. LE AND HEEL STIFFENER * Shazia Mario RN - 12/30/2023 1:59 PM CST 12/30/23 4999 Communications Important Message from Medicare notice given to patient? Yes MED[employer] letter given? Not Applicable Patient choice (Home Health/Hospice) list given to patient/bilingual call center representative? Yes Custodial Facility list given to patient/bilingual call center representative? Not Applicable Fiduciary Responsibility Patient/Designated decision maker was informed of [facility] fiduciary relationship as necessary Notice of Non-Covered Continued Stay or Hospital Services Given to Patient Not Applicable IM letter completed with patient/bilingual call center representative at bedside. Patient/bilingual call center representative were informed ofthe planned discharge date, the date the beneficiary's financial liability begins, the beneficiary's appeal rights, and how and when to initiate an appeal. Patient/bilingual call center representative were provided a copy of the IM letter and IM letter was placed in unit???s designated medical record bin to be uploaded into the patient???s chart. LE AND HEEL STIFFENER * Vonda Rao RD - 12/30/2023 12:22 [...] sodium chloride 0.9% Recent Labs Lab Units 12/28/23221712/26/23223112/25/23 2046 SODIUM mmol/L 138 < > 133* POTASSIUM PLASMA mmol/L 4.4 < > 3.9 CHLORIDE mmol/L 104 < > 99 CO2 mmol/L 26 < > 24 BUN SERUM mg/dL 20 < > 20 CREATININE mg/dL 0.79 < > 1.07 JSH-TBP-NCBVAKI mL/min/1.73 m2 83 < > 58* CALCIUM [...] Start Ordered 12/26/23 1100 Oral Nutrition Supplements ([facility]) Select Supplement: Ayla Mercaux 1.0 - Chocolate, VARY/multiple Flavor All Meals Question Answer Comment ([facility]) Select Supplement: Ayla Mercaux 1.0 - Chocolate ([facility]) Select Supplement: VARY/multiple Flavor 12/26/23 0825 12/26/23 0823 Adult Diet Restricted; Consistent Carbohydrate Diet effective now Question Answer Comment ([facility]) Diet type Restricted Diabetic: Consistent Carbohydrate 12/26/23 0825 12/24/23 2100 Bedtime snack At bedtime Comments: If bedtime BG is less than 100mg/dl, give patient a 15 gram carbohydrate snack. 12/24/23 1840 Allergies: Reviewed. IMPRESSION: Screened per f/u. Pt s/p left colectomy, end colostomy. Pt is on a consistent carb diet. Intake varies, eating 25-75% of recent meals. Pt is drinking Webvanta BID. No new wt since 12/22. Wt [...] depth pinch but not ample Muscle Loss Mandaeism Region - Temporalis Muscle: Slight depression Clavicle [...] food supplement, Encouragement, Meals and snacks Continue Masterseek 1.4 instead of 1.0 (455 calories per bottle) Pt needs to have 1400 calories just to maintain her wieght but up to 1700 calories to slowly gain weight Ordered new wt. Educated pt on following colostomy diet after discharge. Discussed eating small, frequent meals. Encouraged drinking 6-8 cups of water per day. Discussed foods to limit/avoid. Handout provided and reviewed ([facility] handout). Answered all questions. RD following. GOAL(S): Promote slow and steady weight gain 1/2 to 1 pound per week MONITORING/EVALUATION: Appetite, Discharge plans, I/O, Plan of care, Labs Vonda Rao RD, LD Clinical Travel Dietitian [facility] RD On-Call/Weekend: [phone] LE AND HEEL STIFFENER * Hilaria Dooley - 12/30/2023 8:51 AM [...] not assigned to this patient, please call [phone]. 12/30/23 0824 General Session Type Treatment (and d/c) OT [...] Yes OT Time Calculation OT Start Time 0851 OT Stop Time 0908 OT Time Calculation (min) 17 min Multi-Disciplinary [...] Olivia Sandoval OT at 12/30/2023 11:55 AM INSOLE AND HEEL STIFFENER LE AND HEEL STIFFENER LE AND HEEL STIFFENER * Meka Flores, LOG SNAKER - 12/30/2023 6:45 AM CST [facility] Daily Progress Note Colon and Rectal Surgery [...] soft, appropriately tender to palpation, non-distended. Ostomy: [place], no stool/flatus present. Wound: Incision clean, dry, intact with jesu. No erythema/swelling/drainage noted. Drains: Saba intact with clear urine present. Skin: No new rashes, lesions or bruises Extremities: Normal without edema or cyanosis Neurologic: Non-focal, CNII-XII grossly intact Psychiatric: Normal affect and mood. LAB/ RADIOLOGY/ DIAGNOSTIC REVIEW: Recent Labs Lab Units 12/28/23221712/27/23205524 0339 WBC K/cumm 10.9* 10.9* 11.2* HEMOGLOBIN g/dL 9.3* 8.5* 8.5* HEMATOCRIT % 29.5* 27.6* 26.7* PLATELETS K/cumm 384 364 288 Recent Labs Lab Units 12/30/2381712/29/23200112/29/23 17312/29/2375612/28/23221712/27/23205612/27/23205512/27/2375312/26/232231 SODIUM mmol/L -- -- -- -- 138 [...] Colon and Rectal Surgery Cosigned by Yo ePrez MD at 12/30/2023 12:19 PM INSOLE AND HEEL STIFFENER LE AND HEEL STIFFENER LE AND HEEL STIFFENER * Kena Brown, PT - 12/29/2023 2:53 [...] treatment team and contact the PT or NUT SORTER OPERATOR currently assigned to this patient. If a physical therapy clinician is not assigned to this patient, please call [phone]. 12/29/23 1453 PT Last Visit Session Type Treatment (and [...] 1516 PT Time Calculation (min) 23 min LE AND HEEL STIFFENER * Gin Villafuerte, LOG SNAKER - 12/29/2023 9:53 AM CST [facility] Daily Progress Note Colon and Rectal Surgery [...] % Max: 99 % Most Recent: Vitals: 12/28/239 12/29/23 0047 12/29/23 0524 12/29/23 0756 BP: [...] soft, appropriately tender to palpation, non-distended. Ostomy: [place], stool present. Wound: Incision clean, dry, intact [...] 384 364 288 Recent Labs Lab Units 12/29/2375612/28/23221712/28/23211212/27/23205612/27/23205512/27/2375312/26/232 SODIUM mmol/L -- 138 -- -- 137 [...] Yo Perez MD at 12/29/2023 4:29 PM INSOLE AND HEEL STIFFENER LE AND HEEL STIFFENER LE AND HEEL STIFFENER * Dylon Batres MD - 12/28/2023 7:15 AM CST [facility] Daily Progress Note Colon and Rectal Surgery [...] Most Recent: Vitals: 12/27/23 2100 12/28/23 0005 12/28/23 0435 12/28/23 0437 BP: 127/65 125/64 137/68 BP Location: Left [...] [Urine:1275] Intake/Output Summary (Last 24 hours) at 12/28/2023714 Last data filed at 12/28/2023436 Gross per 24 hour Intake 840 ml Output 1275 ml Net -435 ml PHYSICAL EXAM: Constitutional: NAD, well developed, well nourished. A&O x 4. HEENT: PERRL, EOMI, anicteric. Lungs: Unlabored breathing. Trachea midline. Cardiovascular: Regular rate. No JVD. GI: Abdomen soft, appropriately tender to palpation, non-distended. Ostomy: [place], stool present. Wound: Incision clean, dry, intact with jesu. No erythema/swelling/drainage noted. Drains: Saba intact with clear urine present. Skin: No new rashes, lesions or bruises Extremities: Normal without edema or cyanosis Neurologic: Non-focal, CNII-XII grossly intact Psychiatric: Normal affect and mood. LAB/ RADIOLOGY/ DIAGNOSTIC REVIEW: Recent Labs Lab Units 12/27/23205512/27/239 12/26/232231 WBC K/cumm 10.9* 11.2* 10.1* HEMOGLOBIN g/dL 8.5* 8.5* 6.2* HEMATOCRIT % 27.6* 26.7* 20.5* PLATELETS K/cumm 364 288 323 Recent Labs Lab Units 12/27/23205612/27/23205512/27/23 1829 12/27/23 0754 12/26/23223112/26/2318 12/25/232045 SODIUM mmol/L -- 137 -- -- 137 [...] E Hernandez MD at 12/28/2023 3:11 PM INSOLE AND HEEL STIFFENER LE AND HEEL STIFFENER LE AND HEEL STIFFENER Associated attestation - Jose E Hernandez MD - 12/28/2023 3:11 PM INSOLE AND HEEL STIFFENER I have seen and examined the patient [...] drug resistant infections. Jose E Hernandez MD ham stringer [facility] in [place] Office: * Debbie Baltazar MD - 12/27/2023 8:12 AM CST [facility] Daily Progress Note Colon and Rectal Surgery [...] Recent: Vitals: 12/27/23 0233 12/27/23 0237 12/27/23 03312/27/23 075 BP: 116/57 117/55 113/60 132/62 BP Location: [...] soft, moderately tender to palpation, non-distended. Ostomy: [place], stool present. Wound: Incision clean, dry, intact with jesu. No erythema/swelling/drainage noted. Drains: Saba intact with clear urine present. Skin: No new rashes, lesions or bruises Extremities: Normal without edema or cyanosis Neurologic: Non-focal, CNII-XII grossly intact Psychiatric: Normal affect and mood. LAB/ RADIOLOGY/ DIAGNOSTIC REVIEW: Recent Labs Lab Units 12/27/23 03312/26/23223112/26/23 0245 WBC K/cumm 11.2* 10.1* 13.4* HEMOGLOBIN g/dL 8.5* 6.2* 7.4* HEMATOCRIT % 26.7* 20.5* 24.2* PLATELETS K/cumm 288 323 285 Recent Labs Lab Units 12/27/23 0754 12/26/23223112/26/23195812/26/2318 12/25/23 2046 12/25/23 0845 12/24/23 2158 SODIUM [...] E Hernandez MD at 12/28/2023 3:09 PM INSOLE AND HEEL STIFFENER LE AND HEEL STIFFENER LE AND HEEL STIFFENER Associated attestation - Jose E Hernandez MD - 12/28/2023 3:09 PM INSOLE AND HEEL STIFFENER I have seen and examined the patient [...] control. Questions answered. Jose E Hernandez MD ham stringer [facility] [place] Office: * Debbie Baltazar MD - 12/26/2023 10:58 AM CST [facility] Daily Progress Note Colon and Rectal Surgery [...] degrees Pulse: 88 83 69 94 Resp: 19 17 19 Temp: 36.7 ??C (98.1 ??F) 36.7 ??C [...] soft, appropriately tender to palpation, non-distended. Ostomy: [place], stool present. Wound: Incision clean, dry, intact with jesu. No erythema/swelling/drainage noted. Drains: Saba intact with clear urine present. Skin: No new rashes, lesions or bruises Extremities: Normal without edema or cyanosis Neurologic: Non-focal, CNII-XII grossly intact Psychiatric: Normal affect and mood. LAB/ RADIOLOGY/ DIAGNOSTIC REVIEW: Recent Labs Lab Units 12/26/23 0245 12/25/236 12/24/23 2158 WBC K/cumm 13.4* 11.1* 17.3* HEMOGLOBIN g/dL 7.4* 6.4* 8.3* HEMATOCRIT % 24.2* 21.2* 27.3* PLATELETS K/cumm 285 314 336 Recent Labs Lab Units 12/26/23 0818 12/25/236 12/25/239 12/25/23 0845 12/24/23 2158 12/24/23 1109 12/22/23 2136 SODIUM mmol/L -- 133* -- -- 138 [...] health needed at discharge: yes/no - d/c SOFTWARE CONFIGURATION MANAGER - hold Lovenox for now, restart this evening if Hgb stable Code status: Full Code PT/OT Dispo Rec: PT Recommendation/Plan: Inpatient Rehab Facility / OT Recommendation: (S) Inpatient Rehab Facility Cosigned by Jose E Hernandez MD at 12/28/2023 3:08 PM INSOLE AND HEEL STIFFENER LE AND HEEL STIFFENER LE AND HEEL STIFFENER Associated attestation - Jose E Hernandez MD - 12/28/2023 3:08 PM INSOLE AND HEEL STIFFENER I have seen and examined the patient [...] PT/OT. Questions answered. Jose E Hernandez MD ham stringer [facility] [place] Office: * Griselda Chin, PT - 12/25/2023 [...] treatment team and contact the PT or NUT SORTER OPERATOR currently assigned to this patient. If a physical therapy clinician is not assigned to this patient, please call [phone]. 12/25/23 1418 General Session Type Re-Evaluation PT Received On [...] from stand [facility]. 12/25/23 01/01/24 -- LE AND HEEL STIFFENER * Maria E Joyner, OT - 12/25/2023 [...] not assigned to this patient, please call [phone]. 12/25/23 8057 General Chart Reviewed Yes Session Type Re-Evaluation [...] name and address after me John Cramer [address] [place] [address] Without looking at the clock, tell me [...] Static Standing-Balance Support Unilateral upper extremity supported (COURT USHER) Static Standing-Standing Surface Floor Static Standing-Level of Assistance Minimum assistance Static Standing-Comment/# of Minutes for balance and safety Dynamic Standing Balance Dynamic Standing-Balance Support Bilateral upper extremity supported (COURT USHER) Dynamic Standing-Balance (weight shifting) Dynamic Standing-Standing Surface [...] lightheadedness. Pt took 2-[address] USHER and min A for balance and safety [...] activity;Functional mobility training;Functional transfer training;Strengthening;Therapeutic activity;Therapeutic exercise;Transfer traini parvez OT - Next Appointment 12/26/23 OT Evaluation [...] ADLs with mod I 12/25/23 01/22/24 -- LE AND HEEL STIFFENER * Debbie Baltazar MD - 12/25/2023 10:27 AM CST [facility] Daily Progress Note Colon and Rectal Surgery [...] soft, appropriately tender to palpation, non-distended. Ostomy: [place], stool present. Wound: Incision clean, dry, intact with jesu. No erythema/swelling/drainage noted. Drains: Saba intact with clear urine present. Skin: No new rashes, lesions or bruises Extremities: Normal without edema or cyanosis Neurologic: Non-focal, CNII-XII grossly intact Psychiatric: Normal affect and mood. LAB/ RADIOLOGY/ DIAGNOSTIC REVIEW: Recent Labs Lab Units 12/24/23215712/24/23 1647 12/24/23 1522 12/24/23 1109 12/22/23 2136 12/19/23 2229 WBC K/cumm 17.3* -- -- -- 13.1* [...] displayed. Recent Labs Lab Units 12/25/23 0845 12/24/23215712/24/2312/23/24 1109 12/22/23 2136 12/19/23 2229 SODIUM mmol/L -- 138 -- -- 133* [...] keep saba and fluids today - keep SOFTWARE CONFIGURATION MANAGER - d/c entereg - switch cipro/flagyl to Zosyn per ID Code status: Full Code PT/OT Dispo Rec: PT Recommendation/Plan: Home with family, Home with intermittent assist, No further PT indicated / OT Recommendation: Home with family, Home with intermittent assist, No further OT indicated Cosigned by Yo Perez MD at 12/27/2023 1:20 PM INSOLE AND HEEL STIFFENER LE AND HEEL STIFFENER LE AND HEEL STIFFENER * Chana Cuenca MD - 12/25/2023 5:34 AM CST [facility] EQU[facility]MENT TECH Oncology Post -Op note 63 y.o. POD#1 [...] Saba in place. Can VT today from Cemetery Laborer Onc perspective. -Pain: well controlled with epidural, IV toradol and PO pain medications. Pain reg per CRS -PPX: per CRS Cemetery Laborer Onc will sign off. We will task for follow up with Dr. Rhodes. Please do not hesitate to reach out with any further questions and concerns. Chana Cuenca MD ELECTROPLATER HELPER PGY-3 Cosigned by Gin Mckenna MD at 12/25/2023 7:00 AM INSOLE AND HEEL STIFFENER LE AND HEEL STIFFENER LE AND HEEL STIFFENER LE AND HEEL STIFFENER Associated attestation - Gin Mckenna MD - 12/25/2023 7:00 AM INSOLE AND HEEL STIFFENER I have seen and examined the patient on 12/25/23. I agree with the findings and plan of care as documented in the resident's/fellow's note. and as discussed with the resident/fellow.. -Overall doing well. Defer primary management to CRS. Will arrange for outpatient hourly sign language interpreter follow-up. Will sign off, please call with questions. * María Graham MD PhD - 12/24/2023 8:02 AM CST Medicine Daily Progress Note Patient: Darius Russo : 1960 (63 y.o.) Date of Admission: 11/25/2023 Date of Service: 12/24/23 SUBJECTIVE Interval Events: NAEO. VSS. No new labs. At OR for colectomy, LIBRA+BSO. Plan for transfer to CRS vs Cemetery Laborer/Onc post-op. ID recommending re-consult on transfer for [...] w/antibiotic therapy. Comprehensive diagnostic work-up otherwise unrevealing (kaylie troy sterilized by abx). Not a candidate for remicade 2/2 infection. Course c/b SVT, culture neg sepsis 12/03, 12/08 suspected 2/2 transient bacterial translocation and preventing discharge prior tosurgical intervention. 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 Non-FDG avid. Cemetery Laborer/Onc c/s as above. #HTN: hold losartan 25mg daily #T2DM: A1c 5.7%. HDSSI Code Status: Full Code Disposition: transfer to CRS vs Cemetery Laborer/Onc post-op Best contact: Primary Emergency Contact: JEAN CLAUDE RUSSO Diet: NPO Diet VTE Prophylaxis: enoxaparin 40mg SQ qhs PT: PT Recommendation/Plan: Home with family, Home with intermittent assist, No further PT indicated OT:OT Recommendation: Home with family, Home with intermittent assist, No further OT indicated María Graham MD PhD Resident Physician, Internal Medicine Cosigned by Parmjit Meehan MD at 12/24/2023 1:36 PM INSOLE AND HEEL STIFFENER LE AND HEEL STIFFENER LE AND HEEL STIFFENER LE AND HEEL STIFFENER Associated attestation - Parmjit Meehan MD - 12/24/2023 1:36 PM INSOLE AND HEEL STIFFENER The resident/fellow saw and examined the patient, we discussed their findings, and I am in agreement with the plan based on the discussion with the resident/fellow. I did not personally examine the patient. My total encounter time on this service date was 10 minutes which was spent performing a [id number]-zy-[id number] encounter and personally completing the provider-level activities documented in the note. This includes time spent prior to the visit and after the visit in direct care of the patient. This time does not include time spent in any separately reportable services. * Vicki King MD - 12/24/2023 6:25 AM CST Images from the original note were not included. [facility] Daily Progress Note Colorectal Surgery Surgery PATIENT NAME: Darius Russo : 1960 ADMIT DATE: 11/25/2023 6:29 PM LOS: 29 Subjective CHIEF COMPLAINT: Physical deconditioning INTERVAL HISTORY: -NAEO, AFVSS -Patient able to finish the bowel prep [...] degrees Pulse: 100 99 101 99 Resp: Temp: 37.2 ??C (99 ??F) 37.1 ??C [...] were answered. -Plan for combined resection with senior information security architect today Vicki King MD 12/24/2023 Cosigned by Yo Perez MD at 12/24/2023 5:11 PM INSOLE AND HEEL STIFFENER LE AND HEEL STIFFENER LE AND HEEL STIFFENER * Sylvia Trujillo, RD - 12/23/2023 3:29 PM CST NUTRITION ASSESSMENT [...] 22 21 CREATININE mg/dL 0.78 0.73 0.76 JTP-CLY-FKVQTZP mL/min/1.73 m2 84 >90 87 CALCIUM mg/dL [...] 12/23/23 0549 12/10/23 1551 Oral Nutrition Supplements ([facility]) Select Supplement: Ayla Farms 1.4 - Vanilla All Meals Question: ([facility]) Select Supplement: Answer: [employer] [place] 1.4 - Vanilla 12/10/23 1550 12/04/23 1159 Adult Diet Regular Diet effective now Question: ([facility]) Diet type Answer: Regular 12/04/23 1158 Allergies: Reviewed. IMPRESSION: Patient states she is eating okay but noticed that the cyst is taking up a lot of room. Patient is weight stable for the last week, at 122 lbs. Patient is still drinking 2 ayla farm supplements. Patient expects appetite to peanut picker tremendously once she has cyst removed [...] depth pinch but not ample Muscle Loss Mandaeism Region - Temporalis Muscle: Slight depression Clavicle [...] of care, Labs Sylvia Trujillo MS RDN, [facility], LE AND HEEL STIFFENER * Vicki King MD - 12/23/2023 12:53 PM CST Images from the original note were not included. [facility] Daily Progress Note Colorectal Surgery Surgery PATIENT [...] were answered. -Plan for combined resection with senior information security architect tomorrow -NPO MN -Hold antihypertensive medications -Bowel prep today with Golytely and antibiotics Vicki King MD 12/23/2023 Cosigned by Yo Perez MD at 12/23/2023 4:15 PM INSOLE AND HEEL STIFFENER LE AND HEEL STIFFENER LE AND HEEL STIFFENER * Jhonny Kirby MD - 12/23/2023 6:30 [...] recs appreciated: abx as below - CRS, Cemetery Laborer/Onc c/s, recs appreciated: Await colectomy + LIBRA/BSO tentatively scheduled 12/23. 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 Non-FDG avid. Cemetery Laborer/Onc c/s as above. #HTN: hold losartan 25mg [...] Parmjit Meehan MD at 12/23/2023 2:33 PM INSOLE AND HEEL STIFFENER LE AND HEEL STIFFENER LE AND HEEL STIFFENER Associated attestation - Parmjit Meehan MD - 12/23/2023 2:33 PM INSOLE AND HEEL STIFFENER I have seen and examined the patient [...] from the original note were not included. [facility] Daily Progress Note Colorectal Surgery Surgery PATIENT [...] 99 % Most Recent: Vitals: 12/20/23203412/21/23 0535 12/21/23212412/22/23 0740 BP: 125/62 135/71 112/58 127/61 BP [...] at 12/22/2023 1027 Last data filed at 12/21/2023 2125 Gross per 24 hour Intake 443 ml [...] were answered. -Plan for combined resection with senior information security architect on 12/23 -IPAP Consult -Preoperative labs including T&S and coags -NPO tomorrow MN -Continue to optimize nutrition with adequate caloric and protein intake -OOB, encourage ambulation -Continue antibiotics Vicki King MD 12/22/2023 Cosigned by Yo Perez MD at 12/23/2023 11:52 AM INSOLE AND HEEL STIFFENER LE AND HEEL STIFFENER LE AND HEEL STIFFENER LE AND HEEL STIFFENER Associated attestation - Yo Perez MD - 12/23/2023 11:52 AM INSOLE AND HEEL STIFFENER I have seen and examined the patient [...] recs appreciated: abx as below - CRS, Cemetery Laborer/Onc c/s, recs appreciated: Await colectomy + LIBRA/BSO tentatively scheduled 12/23. 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 Non-FDG avid. Cemetery Laborer/Onc c/s as above. #HTN: hold losartan 25mg [...] Parmjit Meehan MD at 12/22/2023 11:09 AM INSOLE AND HEEL STIFFENER LE AND HEEL STIFFENER LE AND HEEL STIFFENER Associated attestation - Parmjit Meehan MD - 12/22/2023 11:09 AM INSOLE AND HEEL STIFFENER I have seen and examined the patient [...] from the original note were not included. [facility] Daily Progress Note Colorectal Surgery Surgery PATIENT [...] requires resection. -Plan for combined resection with senior information security architect on 12/23 -Continue to optimize nutrition with adequate caloric and protein intake -OOB, encourage ambulation -Continue antibiotics Eleonora Mendez MD 12/21/2023 Cosigned by Janel Ugarte MD at 12/22/2023 6:01 AM INSOLE AND HEEL STIFFENER LE AND HEEL STIFFENER LE AND HEEL STIFFENER * Jhonny Kirby MD - 12/21/2023 12:18 [...] recs appreciated: abx as below - CRS, Cemetery Laborer/Onc c/s, recs appreciated: Await colectomy + LIBRA/BSO tentatively scheduled 12/23. 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 Non-FDG avid. Cemetery Laborer/Onc c/s as above. #HTN: hold losartan 25mg daily #T2DM: A1c 5.7%. HDSSI Code Status: Full Code Disposition: pending clinical course Best contact: Primary Emergency Contact: KATERINEJEAN CLAUDE Diet: Adult Diet Regular VTE Prophylaxis: enoxaparin 40mg SQ qhs PT: PT Recommendation/Plan: Home with family, Home with intermittent assist, No further PT indicated OT:OT Recommendation: Home with family, Home with intermittent assist, No further OT indicated Jhonny Kirby MD Resident Physician Cosigned by Parmjit Meehan MD at 12/22/2023 7:23 AM INSOLE AND HEEL STIFFENER LE AND HEEL STIFFENER LE AND HEEL STIFFENER Associated attestation - Parmjit Meehan MD - 12/22/2023 7:23 AM INSOLE AND HEEL STIFFENER I have seen and examined the patient [...] recs appreciated: abx as below - CRS, Cemetery Laborer/Onc c/s, recs appreciated: Await colectomy + LIBRA/BSO tentatively scheduled 12/23. 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 Non-FDG avid. Cemetery Laborer/Onc c/s as above. #HTN: hold losartan 25mg [...] Parmjit Meehan MD at 12/21/2023 7:03 AM INSOLE AND HEEL STIFFENER LE AND HEEL STIFFENER Associated attestation - Parmjit Meehan MD - 12/21/2023 7:03 AM INSOLE AND HEEL STIFFENER I have seen and examined the patient [...] from the original note were not included. [facility] Daily Progress Note Colorectal Surgery Surgery PATIENT [...] requires resection. -Plan for combined resection with senior information security architect on 12/23 -Continue to optimize nutrition with [...] created in part with the assistance of [employer] voice recognition software and may contain wrong word or sound-alike substitutions. Mutuel Department Manager variances and error may occur. Not every sentence has been reviewed in its entirety. For questions about the documentation above, please contact Dr. Ugarte. Janel Ugarte MD FASCRS centrifugal casting machine operator Colon and Rectal Surgery * Sylvia Trujillo, ESTHER - 12/19/2023 12:43 PM CDT NUTRITION [...] acetaminophen benzonatate ondansetron Recent Labs Lab Units 12/16/23225012/13/232150 SODIUM mmol/L 135 137 POTASSIUM PLASMA mmol/L 4.6 4.5 CHLORIDE mmol/L 101 103 CO2 mmol/L 28 26 BUN SERUM mg/dL 21 16 CREATININE mg/dL 0.76 0.78 FMV-MZX-MGGOVFI mL/min/1.73 m2 87 84 CALCIUM mg/dL 8.4* 8.4* ALBUMIN g/dL 2.8* 2.5* PHOSPHORUS PLASMA mg/dL 3.3 3.0 MAGNESIUM mg/dL 1.7 2.0 Recent Labs Lab Units 12/16/23225012/16/23203712/16/23 1634 12/16/23 1153 12/16/23 0813 12/15/23200212/15/23 1720 [...] at 12/19/2023 1243 Last data filed at 12/18/20232017 Gross per [...] Start Ordered 12/10/23 1551 Oral Nutrition Supplements ([facility]) Select Supplement: Ayla Whit 1.4 - Vanilla All Meals Question: ([facility]) Select Supplement: Answer: Ayla Sherman 1.4 - Vanilla 12/10/23 1550 12/04/23 1159 Adult Diet Regular Diet effective now Question: ([facility]) Diet type Answer: Regular 12/04/23 1158 Allergies: Reviewed. IMPRESSION: Patient notes she is still trying to eat as many calories as she can and drink ayla knutson 1.4 -threecartons a day. Yesterday she got [...] depth pinch but not ample Muscle Loss Mandaeism Region - Temporalis Muscle: Slight depression Clavicle [...] of care, Labs Sylvia Trujillo MS RDN, [facility], * Vicki King MD - 12/19/2023 10:00 AM CDT Images from the original note were not included. [facility] Daily Progress Note Colorectal Surgery Surgery PATIENT [...] requires resection. -Plan for combined resection with senior information security architect on 12/23 -Continue to optimize nutrition with [...] recs appreciated: abx as below - CRS, Cemetery Laborer/Onc c/s, recs appreciated: Await colectomy + LIBRA/BSO tentatively scheduled 12/23. 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 Non-FDG avid. Cemetery Laborer/Onc c/s as above. #HTN: hold losartan 25mg [...] private GI pager during weekdays or the Zhi[employer] phone during after hours and weekends. Jyotsna [...] recs appreciated: abx as below - CRS, Cemetery Laborer/Onc c/s, recs appreciated: Await colectomy + LIBRA/BSO tentatively scheduled 12/23. 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 Non-FDG avid. Cemetery Laborer/Onc c/s as above. #HTN: hold losartan 25mg [...] from the original note were not included. [facility] Daily Progress Note Colorectal Surgery Surgery PATIENT [...] Vitals: 12/17/23 0500 12/17/23 0750 12/17/23 1435 12/17/232039 BP: 122/71 116/53 107/55 BP Location: Left [...] requires resection. 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 K>4, Mg>2 #Hypocalcemia, resolving Intermittent throughout admission. Possibly related to poor dietary intake. 11/29 25OH-VitD 39 from19 10/26. #Liver/spleen iron deposition: 11/12 MRI, etiology unclear. 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 Non-FDG avid. Cemetery Laborer/Onc c/s as above. #HTN: hold losartan 25mg [...] from the original note were not included. [facility] Daily Progress Note Colorectal Surgery Surgery PATIENT [...] requires resection. -Plan for combined resection with senior information security architect on 12/23 -Continue to optimize nutrition with adequate caloric and protein intake -Continue antibiotics Vicki King MD 12/17/2023 Cosigned by Yo Perez MD at 12/18/2023 7:54 AM CDT * Sylvia Trujillo, ESTHER - 12/16/2023 2:48 PM CDT NUTRITION ASSESSMENT [...] benzonatate ondansetron Recent Labs Lab Units 12/13/23 21512/11/23 2215 12/11/23 0010 SODIUM mmol/L 137 140 138 POTASSIUM PLASMA mmol/L 4.5 4.4 3.9 CHLORIDE mmol/L 103 103 105 CO2 mmol/L 26 28 26 BUN SERUM mg/dL 16 13 13 CREATININE mg/dL 0.78 0.80 0.86 UOW-VLF-FINIQYI mL/min/1.73 m2 84 82 75 CALCIUM mg/dL [...] Start Ordered 12/10/23 1551 Oral Nutrition Supplements ([facility]) Select Supplement: Ayla [place] 1.4 - Vanilla All Meals Question: ([facility]) Select Supplement: Answer: Ayla Sherman 1.4 - Vanilla 12/10/23 1550 12/04/23 1159 Adult Diet Regular Diet effective now Question: ([facility]) Diet type Answer: Regular 12/04/23 1158 Allergies: Reviewed. IMPRESSION: Patient states she has been counting her calories every day and hitting anywhere from 9067-8194 calories every day. Patient drinks 3 ayla knutson 1.4 shakes and then a bowl of [...] depth pinch but not ample Muscle Loss Mandaeism Region - Temporalis Muscle: Slight depression Clavicle [...] of care, Labs Sylvia Trujillo MS RDN, [facility], * Jhonny Kirby MD - 12/16/2023 10:52 [...] y.o. 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 K>4, Mg>2 #Hypocalcemia: Intermittent throughout admission. Possibly related to poor dietary intake. 11/29 25OH-VitD 39 from 10/26. #Liver/spleen iron deposition: 11/12 MRI, etiology unclear. 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 Non-FDG avid. Cemetery Laborer/Onc c/s as above. #HTN: hold losartan 25mg [...] from the original note were not included. [facility] Daily Progress Note Colorectal Surgery Surgery PATIENT [...] mg oral TID PRN 100 mg at 12/12/234 ??? 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 K>4, Mg>2 #Hypocalcemia: Intermittent throughout admission. Possibly related to poor dietary intake. 11/29 25OH-VitD 39 from 10/26. #Liver/spleen iron deposition: 11/12 MRI, etiology unclear. 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 Non-FDG avid. Cemetery Laborer/Onc c/s as above. #HTN: hold losartan 25mg [...] from the original note were not included. [facility] Daily Progress Note Colorectal Surgery Surgery PATIENT [...] spray mouth/throat Q4H PRN 1 spray at [id number] ??? 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 K>4, Mg>2 #Hypocalcemia: Intermittent throughout admission. Possibly related to poor dietary intake. 11/29 25OH-VitD 39 from 10/26. #Liver/spleen iron deposition: 11/12 MRI, etiology unclear. 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 Non-FDG avid. Cemetery Laborer/Onc c/s as above. #HTN: hold losartan 25mg [...] from the original note were not included. [facility] Daily Progress Note Colorectal Surgery Surgery PATIENT [...] the resident's note. Jose E Hernandez MD ham stringer [facility] [place] Office: * María Graham MD PhD - [...] mg oral BID PRN 1,200 mg at 12/07/234 ??? 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 K>4, Mg>2 #Hypocalcemia: Intermittent throughout admission. Possibly related to poor dietary intake. 11/29 25OH-VitD 39 from 10/26. #Liver/spleen iron deposition: 11/12 MRI, etiology unclear. 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 Non-FDG avid. Cemetery Laborer/Onc c/s as above. #HTN: hold losartan 25mg [...] from the original note were not included. [facility] Daily Progress Note Colorectal Surgery Surgery PATIENT [...] CT, a 20cm benign ovarian cyst (per hourly sign language interpreter), and splenic/liver microabscesses (thought to be seeding [...] PRN ? ? al & mag hydroxide ejwsddeiquw-mevatmzbavtasyy-vmkkmpmmh-nystatin (MAGIC MOUTHWASH) oral suspension 1-1-1-1 15 mL [...] mouthwash q8h PRN, throat lozenges #Type 2 MN: 12/03 Trops 5>770>1061>1176 after acute SVT 12/03. [...] initiation. GI recs to consult CRS and hourly sign language interpreter for operative intervention in setting of pending [...] rec TAC + cyst resection 12/23 - Cemetery Laborer c/s, will provide coverage for above surgery [...] x 14.2cm multiseptate cystic R ovary mass. Cemetery Laborer onc c/s, suspect benign, per pulm, concern for possible malignancy in lungs, plan to reach out to hourly sign language interpreter re issues. #Hypocalcemia: Intermittent throughout admission. Possibly related to poor dietary intake. 11/29 25OH-VitD 39 from 10/26. #HTN: restart losartan 25mg daily #T2DM: A1c 5.7%. HDSSI. Code Status: Full Code Disposition: pending clinical course Best contact: Primary Emergency Contact: ROSA RUSSOALD Diet: Adult Diet Regular VTE Prophylaxis: enoxaparin [...] from the original note were not included. [facility] Daily Progress Note Colorectal Surgery Surgery PATIENT [...] Infusions: PRN: acetaminophen al & mag hydroxide loitcowfmhx-egmpaypyifpingh-addczvnrb-nystatin benzocaine-menthoL benzonatate dextrose OR dextrose glucagon guaiFENesin [...] CT, a 20cm benign ovarian cyst (per hourly sign language interpreter), and splenic/liver microabscesses (thought to be seeding [...] PRN ? ? al & mag hydroxide vcphaoioxkt-yvdpmmlrmhtzxbl-bjszfeljd-nystatin (MAGIC MOUTHWASH) oral suspension 1-1-1-1 15 mL [...] mouthwash q8h PRN, throat lozenges #Type 2 MN: 12/03 Trops 5>770>1061>1176 after acute SVT 12/03. [...] initiation. GI recs to consult CRS and hourly sign language interpreter for operative intervention in setting of pending [...] rec TAC + cyst resection 12/23 - Cemetery Laborer c/s, will provide coverage for above surgery [...] x 14.2cm multiseptate cystic R ovary mass. Cemetery Laborer onc c/s, suspect benign, per pulm, concern for possible malignancy in lungs, plan to reach out to hourly sign language interpreter re issues. #Hypocalcemia: Intermittent throughout admission. Possibly [...] CBC, CMP, Qtc. Álvaro Radford MD * Jefe, Inez - 12/10/2023 3:35 PM CDT NUTRITION ASSESSMENT [...] PRN Meds: acetaminophen al & mag hydroxide xmkxfbawhzr-xfsbceahklsmarv-zpjxqrbgg-nystatin benzocaine-menthoL benzonatate sodium chloride 0.9% dextrose OR [...] 14 CREATININE mg/dL 0.81 0.73 0.80 0.82 SHE-GUB-AUFNRSM mL/min/1.73 m2 81 >90 82 79 CALCIUM mg/dL 8.1* 8.8 8.7 8.3* ALBUMIN g/dL 2.5* -- 2.8* 2.7* PHOSPHORUS PLASMA mg/dL 3.4 -- 3.2 3.3 MAGNESIUM mg/dL -- 2.0 2.1 2.3 Recent Labs Lab Units 12/10/23 1128 12/10/23 0832 12/09/23 2302 12/09/23 2021 12/09/23 1701 12/09/23 1227 12/09/23 1202 GLUCOSE mg/dL [...] Adult Diet Regular Diet effective now Question: ([facility]) Diet type Answer: Regular 12/04/23 1158 12/03/23 0700 Oral Nutrition Supplements ([facility]) Select Supplement: Ayla Mercaux 1.0 - Vanilla With Breakfast and Dinner Question: ([facility]) Select Supplement: Answer: Ayla Mercaux 1.0 - Vanilla 12/02/23 1838 11/26/23 2100 [...] mass. Family supporting her. Her daughter purchased [employer] drinks for patient to drink at home. [...] depth pinch but not ample Muscle Loss Mandaeism Region - Temporalis Muscle: Slight depression Clavicle [...] food supplement, Encouragement, Meals and snacks Ordered Ayla Mercaux 1.4 Encouraged PO intake to reduce weight loss and lean body mass wasting. Patient was motivated to drink [employer] shakes and eat meals and snack. Discussed PRN imodium to help reduce lose stools. GOAL(S): Promote slow and steady weight gain 1/2 to 1 pound per week MONITORING/EVALUATION: Appetite, Discharge plans, I/O, Plan of care, Labs Inez Mayberry U Flight Deck Officer Cosigned by Sylvia Trujillo RD at 12/11/2023 [...] CT, a 20cm benign ovarian cyst (per hourly sign language interpreter), and splenic/liver microabscesses (thought to be seeding [...] PRN ? ? al & mag hydroxide ccxitpjceyt-qwzfcdpyessxmie-jcxxlspyw-nystatin (MAGIC MOUTHWASH) oral suspension 1-1-1-1 15 mL [...] mouthwash q8h PRN, throat lozenges #Type 2 MN: 12/03 Trops 5>770>1061>1176 after acute SVT 12/03. [...] initiation. GI recs to consult CRS and hourly sign language interpreter for operative intervention in setting of pending [...] rec TAC + cyst resection 12/23 - Cemetery Laborer c/s, will provide coverage for above surgery [...] x 14.2cm multiseptate cystic R ovary mass. Cemetery Laborer onc c/s, suspect benign, per pulm, concern for possible malignancy in lungs, plan to reach out to hourly sign language interpreter re issues. #Hypocalcemia: Intermittent throughout admission. Possibly [...] from the original note were not included. [facility] Daily Progress Note Colorectal Surgery Surgery PATIENT [...] Infusions: PRN: acetaminophen al & mag hydroxide lylslidfqrf-champxaxfddbpkp-bvxmynnhq-nystatin benzocaine-menthoL benzonatate sodium chloride 0.9% dextrose OR [...] CT, a 20cm benign ovarian cyst (per hourly sign language interpreter), and splenic/liver microabscesses (thought to be seeding [...] 2138 ? ? al & mag hydroxide xgfsdwpuqkt-scpbbjymrpugtcu-yupmlvpay-nystatin (MAGIC MOUTHWASH) oral suspension 1-1-1-1 15 mL [...] mouthwash q8h PRN, throat lozenges #Type 2 MN: 12/03 Trops 5>770>1061>1176 after acute SVT 12/03. [...] initiation. GI recs to consult CRS and hourly sign language interpreter for operative intervention in setting of pending [...] rec TAC + cyst resection 12/23 - Cemetery Laborer c/s, will provide coverage for above surgery [...] x 14.2cm multiseptate cystic R ovary mass. Cemetery Laborer onc c/s, suspect benign, per pulm, concern for possible malignancy in lungs, plan to reach out to hourly sign language interpreter re issues. #Hypocalcemia: Intermittent throughout admission. Possibly [...] sepsis. Critical Care Event Note Division of [facility] Medicine Name: Darius Russo : 1960 Service Date: December 10, 2023 Age: 63 y.o. female Admit Date: 11/25/2023 Bed: [id number] LOS: 15 days Date/Time of event: 12/09/23 [...] physical exam, laboratory, and radiographic data. MD Álvaro Nelson MD * Vicki King MD - 12/09/2023 7:15 AM CDT Images from the original note were not included. [facility] Daily Progress Note Colorectal Surgery Surgery PATIENT [...] Infusions: PRN: acetaminophen al & mag hydroxide aznoklvcvce-ocvwueswaczfoao-ymldrsbde-nystatin benzocaine-menthoL benzonatate sodium chloride 0.9% dextrose OR [...] from the original note were not included. [facility] Daily Progress Note Colorectal Surgery Surgery PATIENT [...] Infusions: PRN: acetaminophen al & mag hydroxide ovhxbynxtxt-cygfoinfyletrsc-mrfjmdegk-nystatin benzocaine-menthoL benzonatate sodium chloride 0.9% dextrose OR [...] CT, a 20cm benign ovarian cyst (per hourly sign language interpreter), and splenic/liver microabscesses (thought to be seeding [...] consulted, - OK for discharge per CRS. [facility] Lab[facility] will provide coverage. Surgery tentatively planned for [...] 12/06/232137 ? ? al & mag hydroxide jopncvvhhon-kdlrbaiqgogoufl-dobqsbvna-nystatin (MAGIC MOUTHWASH) oral suspension 1-1-1-1 15 mL 15 mL swish & spit Q8H PRN 15 mL at 12/07/231718 ??? benzocaine-menthoL (CHLORASEPTIC) lozenge 1 lozenge 1 lozenge mouth/throat Q2H PRN ??? benzonatate (TESSALON) capsule 100 mg 100 mg oral TID PRN 100 mg at 12/07/231718 ??? Carrier Fluids for Secondary Infusion - [...] order magic mouthwash q8h PRN #Type 2 MN: 12/03 Trops 5>770>1061>1176 after acute SVT 12/03. [...] initiation. GI recs to consult CRS and hourly sign language interpreter for operative intervention in setting of pending infectious workup. Per CRS, plan for TAC+cyst resection on 12/16, can be discharged in meantime. ISO recent SVT/septic picture, will continue to monitor in hospital. - GI c/s - ID c/s, recs appreciated: abx, work-up as below - CRS c/s, rec TAC + cyst resection 12/16 - Cemetery Laborer c/s, will provide coverage for above surgery [...] x 14.2cm multiseptate cystic R ovary mass. [facility] onc c/s, suspect benign, per pulm, concern for possible malignancy in lungs, plan to reach out to hourly sign language interpreter re issues. #Hypocalcemia: Intermittent throughout admission. Possibly [...] from the original note were not included. [facility] Daily Progress Note Colorectal Surgery Surgery PATIENT [...] Infusions: PRN: acetaminophen al & mag hydroxide jhflyreqmir-szjuihzdngazrab-lrtcwuhvb-nystatin benzonatate sodium chloride 0.9% dextrose OR dextrose [...] 12/06/232137 ? ? al & mag hydroxide dqtpztabphj-dzmvrddakrefgiq-ktdmmgcqa-nystatin (MAGIC MOUTHWASH) oral suspension 1-1-1-1 15 mL [...] order magic mouthwash q8h PRN #Type 2 MN: 12/03 Trops 5>770>1061>1176 after acute SVT 12/03. [...] initiation. GI recs to consult CRS and hourly sign language interpreter for operative intervention in setting of pending infectious workup. Per CRS, plan for TAC+cyst resection on 12/16, can be discharged in meantime. ISO recent SVT/septic picture, will continue to monitor in hospital. - GI c/s - ID c/s, recs appreciated: abx, work-up as below - CRS c/s, rec TAC + cyst resection 12/16 - [facility] c/s #Cavitary lung lesions s/p bronch with [...] x 14.2cm multiseptate cystic R ovary mass. [facility] onc c/s, suspect benign, per pulm, concern for possible malignancy in lungs, plan to reach out to hourly sign language interpreter re issues. #Hypocalcemia: Intermittent throughout admission. Possibly [...] from the original note were not included. [facility] Daily Progress Note Colorectal Surgery Surgery PATIENT [...] mg oral TID PRN 100 mg at 12/05/232115 ??? Carrier Fluids for Secondary Infusion - [...] order magic mouthwash q8h PRN #Type 2 MN: 12/03 Trops 5>770>1061>1176 after acute SVT 12/03. [...] initiation. GI recs to consult CRS and hourly sign language interpreter for operative intervention in setting of pending infectious workup. Per CRS, plan for TAC+cyst resection on 12/16, can be discharged in meantime. ISO recent SVT/septic picture, will continue to monitor in hospital. - GI c/s - ID c/s, recs appreciated: abx, work-up as below - CRS c/s, rec TAC + cyst resection 12/16 - [facility] c/s #Cavitary lung lesions s/p bronch with [...] x 14.2cm multiseptate cystic R ovary mass. [facility] onc c/s, suspect benign, per pulm, concern for possible malignancy in lungs, plan to reach out to hourly sign language interpreter re issues. #Hypocalcemia: Intermittent throughout admission. Possibly [...] Intake/Output Summary (Last 24 hours) at 12/05/2023 0719 Last data filed at 12/05/2023 0512 Gross [...] oral Q4H PRN 650 mg at 12/01/23 175 benzonatate (TESSALON) capsule 100 mg 100 mg oral TID PRN 100 mg at 12/05/23 010 Carrier Fluids for Secondary Infusion - 0.9% [...] PO, hold mIVF after cessation. #Type 2 MN: 12/03 Trops 5>770>1061>1176 after acute SVT 12/03. [...] initiation. GI recs to consult CRS and hourly sign language interpreter for operative intervention in setting of pending infectious workup. Per CRS, plan for TAC+cyst resection on 12/16, can be discharged in meantime. ISO recent SVT/septic picture, will continue to monitor in hospital. - GI c/s - ID c/s, recs appreciated: abx, work-up as below - CRS c/s, rec TAC + cyst resection 12/16 - [facility] c/s - ciprofloxacin 500mg BID, metronidazole 500mg [...] x 14.2cm multiseptate cystic R ovary mass. [facility] onc c/s, suspect benign, per pulm, concern for possible malignancy in lungs, plan to reach out to hourly sign language interpreter re issues. #Hypocalcemia: Intermittent throughout admission. Possibly [...] with intermittent assist, No further OT indicated Micahel Huizar MD Resident Physician Cosigned by Álvaro [...] from the original note were not included. [facility] Daily Progress Note Colorectal Surgery Surgery PATIENT [...] % Max: 100 % Most Recent: Vitals: 12/04/23195412/04/23200912/04/23221912/05/23 031 BP: 95/51 100/58 127/72 BP Location: Left [...] hypotension (MAPs 50s), lactate 1.7>1.9. I gave gtuyhcm3C LR, broadened antibiotics to vancomycin/zosyn, and started [...] Intake/Output Intake/Output Summary (Last 24 hours) at 12/04/20232138 Last data filed at 12/04/20232005 Gross per [...] mL intra-catheter PRN 10 mL at 12/04/23 185 Physical Exam Examine below after resolution of [...] FDG-PET/CT IMAGING DATE OF STUDY: 12/04/2023 SCANNER: [facility] [employer] (NV1). This is a high-resolution scanner, which [...] obtained. The study was interpreted on the [employer] workstation. The mean liver SUV (reported for quality improvement consultant purposes) is 1.5 The total scanned area [...] IVF bolus. Continue mIVF #Likely type 2 MN: 12/03 Trops 5>770>1061>1176 after acute SVT 12/03. [...] initiation. GI recs to consult CRS and hourly sign language interpreter for operative intervention in setting of pending infectious workup. Per CRS, plan for TAC+cyst resection on 12/16, can be discharged in meantime. - GI c/s - ID c/s, recs appreciated: abx, work-up as below - CRS c/s, rec TAC + cyst resection 12/16 - [facility] c/s - ciprofloxacin 500mg BID, metronidazole 500mg [...] x 14.2cm multiseptate cystic R ovary mass. [facility] onc c/s, suspect benign, per pulm, concern for possible malignancy in lungs, plan to reach out to hourly sign language interpreter re issues. #Hypocalcemia: Intermittent throughout admission. Possibly [...] from the original note were not included. [facility] Daily Progress Note Colorectal Surgery Surgery PATIENT [...] Most Recent: Vitals: 12/03/23 1425 12/03/23 1700 12/03/23 2055 12/04/23 0405 BP: 126/71 129/66 127/63 BP Location: [...] at 12/04/2023 0715 Last data filed at 12/03/2023 2030 Gross per 24 hour Intake 1545 ml [...] in the resident's/fellow's note.. * Sylvia Trujillo, RD - 12/03/2023 2:26 PM CDT NUTRITION ASSESSMENT [...] 0.9% Recent Labs Lab Units 12/03/23 0009 12/01/236 11/30/23 2255 11/29/23205011/29/23 0046 SODIUM mmol/L 134* < > 135 131* 135 POTASSIUM PLASMA mmol/L 4.3 < > 3.9 4.0 4.3 CHLORIDE mmol/L 100 < > 100 101 101 CO2 mmol/L 26 < > 25 24 28 BUN SERUM mg/dL 16 < > 10 12 15 CREATININE mg/dL 0.77 < > 0.74 0.86 0.82 ZOY-OAK-BOBPQDI mL/min/1.73 m2 86 < > 90 75 [...] Start Ordered 12/03/23 0700 Oral Nutrition Supplements ([facility]) Select Supplement: Ayla Mercaux 1.0 - Vanilla With Breakfast and Dinner Question: ([facility]) Select Supplement: Answer: Ayla Mercaux 1.0 - Vanilla 12/02/23 1838 12/01/23 1352 Adult Diet Regular, Restricted; Consistent Carbohydrate Diet effective now Question Answer Comment ([facility]) Diet type Regular ([facility]) Diet type Restricted Diabetic: Consistent Carbohydrate 12/01/23 [...] depth pinch but not ample Muscle Loss Mandaeism Region - Temporalis Muscle: Slight depression Clavicle [...] she thiks is too sweet) and likes Fairlife (but it is lower in calories) Weighed patient and updated chart Continue current diet. GOAL(S): Promote slow and steady weight gain 1/2 to 1 pound per week MONITORING/EVALUATION: Appetite, Discharge plans, I/O, Plan of care, Labs Sylvia Trujillo, MS RDN, [facility], * Vicki King MD - 12/03/2023 12:07 PM CDT Images from the original note were not included. [facility] Daily Progress Note Colorectal Surgery Surgery PATIENT [...] MD at 12/03/2023 2:23 PM CDT * Alison Copeland - 12/03/2023 8:21 AM CDT Physical Therapy [...] treatment team and contact the PT or NUT SORTER OPERATOR currently assigned to this patient. If a physical therapy clinician is not assigned to this patient, please call [phone]. 12/03/23 0821 General Chart Reviewed Yes Session [...] Equipment-Currently Using None Prior Function Level of [place] Independent functional transfers;Independent with ambulation Lives With [...] initiation. GI recs to consult CRS and hourly sign language interpreter for operative intervention in setting of pending infectious workup. Per CRS, plan for TAC+cyst resection on 12/16, can be discharged in meantime. - GI c/s - ID c/s, recs appreciated: abx, work-up as below - CRS c/s, rec TAC + cyst resection 12/16 - [facility] c/s - ciprofloxacin 500mg BID, metronidazole 500mg [...] x 14.2cm multiseptate cystic R ovary mass. [facility] onc c/s, suspect benign, per pulm, concern for possible malignancy in lungs, plan to reach out to hourly sign language interpreter re issues. #Hyponatremia: 11/29 AM cortisol 20.1; [...] resulted in specific diagnosis. Otherwise, planning for CRS/EQUIPMENT TECH surgery in 2 weeks. Supplementary Attestation Today, [...] CBC, CMP, QTc. Álvaro Radford MD * Claire Ybarra, THALIA - 12/02/2023 10:55 AM CDT Occupational Therapy [...] not assigned to this patient, please call [phone]. 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 GI recs to consult CRS and hourly sign language interpreter for operative intervention in setting of pending infectious workup. - GI c/s, recs appreciated: c/s CRS and [facility] onc for operative intervention - ID c/s, [...] (BAL 11/27) appreciated: disfavor malignancy - f/u aonq-P-cgcpfb, collecting 11/30 - negative galactomannan 12/01 - [...] x 14.2cm multiseptate cystic R ovary mass. [facility] onc c/s, suspect benign. Would simultaneously remove [...] mg at 12/01/23431 al & mag hydroxide vlhtxmfgrkh-avdrpqngawnoeoj-zyyoppgpm-nystatin (MAGIC MOUTHWASH) oral suspension 1-1-1-1 10 mL [...] 39 30 - 80 ng/mL Thyroid Function [place] Collection Time: 11/30/23 10:55 PM Result Value [...] (BAL 11/27) appreciated: disfavor malignancy - f/u dgyt-S-ouzsxq, collecting 11/30 - Abx as above #FTT/malnutrition [...] x 14.2cm multiseptate cystic R ovary mass. [facility] onc c/s, suspect benign. Would simultaneously remove [...] clinical course Best contact: Primary Emergency Contact: SIMBAGABRIELLEJEAN CLAUDE Diet: Adult Diet Regular, Restricted; Consistent Carbohydrate [...] 11/30/2023 7:05 AM CDT Progress Note Medicine [facility] Subjective HPI: Ms. Darius Russo is a [...] thought to be too small to drain. [facility] onc evaluated, suspect that the mass is [...] 100 on RA. Pt admitted to [facility]. 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 Pt has risk factor for opportunistic infection [...] cm, as described on 11/12 MRI. - [facility] onc aware, suspect likely benign - If [...] 12 minutes which was spent performing a wwjf-ua-frlq encounter and personally completing the provider-level activities [...] thought to be too small to drain. [facility] onc evaluated, suspect that the mass is [...] 100 on RA. Pt admitted to [facility]. 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 Pt has risk factor for opportunistic infection [...] cm, as described on 11/12 MRI. - [facility] onc aware, suspect likely benign - If [...] 15 minutes which was spent performing a ikkn-yn-cssa encounter and personally completing the provider-level activities documented in the note. This includes time spent prior to the visit and after the visit in direct care of the patient. This time does not include time spent in any separately reportable services. Suhail Alfredo MD * Olamide Germain, CLINIC LEAD - 11/28/2023 10:41 AM CDT 2% 8 [...] sedation Informed Consent: Benefits, risks, alternatives discussed; patient/bilingual call center representative accepts/agrees tosedation/anesthesia plan and to the [...] thought to be too small to drain. [facility] onc evaluated, suspect that the mass is [...] 100 on RA. Pt admitted to [facility]. 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 Pt has risk factor for opportunistic infection [...] cm, as described on 11/12 MRI. - [facility] onc aware, suspect likely benign - If [...] thought to be too small to drain. [facility] onc evaluated, suspect that the mass is [...] admitted to [facility]. Overnight events: -NAEON -ID recs: appreciate, sent [...] to initiate Remicade, can discuss sigmoid colectomy. [facility] onc aware, will plan to removeovarian mass [...] cm, as described on 11/12 MRI. - [facility] onc aware, suspect likely benign - If [...] thought to be too small to drain. [facility] onc evaluated, suspect that the mass is [...] 100 on RA. Pt admitted to [facility]. Overnight events: -NAEON -Pt having fecal incontinence [...] to initiate Remicade, can discuss sigmoid colectomy. [facility] Lab[facility] onc aware, will plan to removeovarian mass [...] cm, as described on 11/12 MRI. - [facility] onc aware, suspect likely benign - If [...] Melissa Rhodes MD at 12/24/2023 12:03 PM INSOLE AND HEEL STIFFENER LE AND HEEL STIFFENER LE AND HEEL STIFFENER Source Note - Renée Rendon MD - 12/02/2023 10:51 AM CDT Images from the original note were not included. EQUIPMENT TECH ONC CONSULT NOTE Bed: [id number] Pelvic bed: No Reason for consult: pelvic [...] her complicated Crohn's Disease.Given possibility of procedure, [facility] Onc team consulted for possible coordination of surgery for mass removal. Patient reports no new hourly sign language interpreter changes since last admitted. Denies vaginal bleeding or discharge. Reports increased feeling of satiety and wonders if the mass plays a roll in that. Has no specific questions for hourly sign language interpreter team other than requesting that her surgery [...] at 12/01/23 1751 al & mag hydroxide tjpvplpqmfn-flmofmzgrjpquni-iodmuyqib-nystatin (MAGIC MOUTHWASH) oral suspension 1-1-1-1 10 mL, [...] PRN, Michael Huizar MD, 1 spray at 11/29/232057 polyethylene glycol (MIRALAX) packet 17 g, 17 [...] inflammatory bowel disease. #Pelvic Mass - 09/07 [facility] US at OSH w/ 12 x 11.2 [...] colostomy/sigmoidectomy and if planning on doing so, hourly sign language interpreter oncwill coordiante tandem mass resection. Discussed with hourly sign language interpreter onc fellow Dr. Storm [facility] Onc team: [phone] ELECTROPLATER HELPER consult: [phone] 12/02/23 Renée Rendon MD, MS ELECTROPLATER HELPER PGY-4 Cosigned by Betty Khan MD at 12/03/2023 4:52 PM CDT * Yo Perez MD - 12/24/2023 10:36 AM CST I have reviewed the H&P, examined the patient, and endorse the findings as written. Plan of Care : Based on the above findings, I consider Darius Russo to be an acceptable risk for: Procedure(s): (MUTCH/ MULUO) RESECTION LEFT COLON COLOSTOMY RESECTION TOTAL COLON END ILEOSTOMY HYSTERECTOMY ABDOMINAL SALPINGO-OOPHORECTOMY PLACEMENT PREOPERATIVE STENT - URETERAL LE AND HEEL STIFFENER Source Note - Chris Ricci NP - 12/08/2023 2:36 PM CDT Images from the original note were not included. [facility] Preoperative Assessment and Planning Preoperative Evaluation Record Evaluation type/location: IPAP at [facility] Planned procedure site: Not Scheduled Date: 12/08/23 [...] + Hypertension (unsure of home BP) + MN (12/03 Trops 770>1061>1176>509>373 after acute SVT 12/03. Suspect related to demand ischemia.) Date of last MN: 12/04/23. 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 Vitals: 12/07/23202412/08/23 0223 12/08/23 0810 BP: 113/58 110/59 108/66 [...] to be an acceptable risk for: Procedure(s): (JHON/ JUAN CARLOS) RESECTION LEFT COLON COLOSTOMY RESECTION TOTAL COLON END ILEOSTOMY HYSTERECTOMY ABDOMINAL SALPINGO-OOPHORECTOMY PLACEMENT PREOPERATIVE STENT - URETERAL LE AND HEEL STIFFENER Source Note - Vicki King MD - 12/02/2023 3:00 PM CDT [facility] Colorectal Surgery Consult Reason for Consult: IBD [...] sigmoid and per endoscopy report, was more bilingual call center representative of a Crohn's appearance. Most recently, [...] Lab/Radiology/Diagnostic Review: Recent Labs Lab Units 12/03/23 00012/01/23214511/30/232254 WBC K/cumm 12.5* 13.4* 17.2* HEMOGLOBIN g/dL 8.3* 8.4* 8.3* HEMATOCRIT % 28.2* 27.3* 27.5* PLATELETS K/cumm 481* 519* 382 Recent Labs Lab Units 12/03/23 0009 12/02/23 2047 12/02/23 1647 12/02/23 0819 12/01/23214512/01/2382611/30/23 225 SODIUM mmol/L 134* -- -- -- 134* [...] surgery. Will plan to start discussion with hourly sign language interpreter onc to coordinate possible surgery. Colorectal surgery [...] thought to be too small to drain. [facility] onc evaluated, suspect that the mass is [...] 100 on RA. Pt admitted to [facility]. Past Medical History: Diagnosis Date Adrenal mass [...] to initiate Remicade, can discuss sigmoid colectomy. [facility] onc aware, will plan to removeovarian mass [...] cm, as described on 11/12 MRI. - [facility] onc aware, suspect likely benign - If [...] underwent colonoscopy with biopsy showing cryptitis. At [facility], per evaluation, concern for need for expedited [...] test interpretation of MRI with GI. Suhail Alfrdeo MD documented in this encounter Procedure Notes * Bin Joy RN - 12/27/2023 6:55 PM CST Vascular Access Nurse: Procedure Note Summary of treatment provided to patient today is as follows : . Bedside Procedure Time out/Checklist (Last 4 Hours) Pre-Op Checklist Row Name 12/27/23 1531 Patient Preparation Temp 36.6 ??C (97.9 ??F) -SR User Brown (r) = Recorded By, (t) = Taken By, (c) = Cosigned By Initials Name SR Larissa Parker Vascular Access Documentation (Last 4 Hours) [facility] Additional Procedures Row Name 12/27/23 1855 Procedures Time in 1600 -LW Time out [...] By Initials Name CT Wanda Belcher RN LW Bin Joy RN Plan: Follow up:IV obtained by floor. Bin Joy RN LE AND HEEL STIFFENER * Ricky Vasquez MD - 11/28/2023 9:47 AM CDTAssociated Order(s): BRONCHOSCOPY [facility] Respiratory Care Patient Name: Darius Russo Procedure Date: 11/28/2023 9:47 AM Date of : 1960 Admit Type: Inpatient Age: 63 Room: [facility] Gender: Female Note Status: Finalized Procedure: Bronchoscopy [...] Conscious sedation note: I personally provided direct ltdp-kd-yiol monitoring of conscious sedation administered by an [...] CDTAssociated Order(s): IP CONSULT TO COLORECTAL SURGERY [facility] Colorectal Surgery Consult Reason for Consult: IBD [...] sigmoid and per endoscopy report, was more bilingual call center representative of a Crohn's appearance. Most recently, [...] Review: Recent Labs Lab Units 12/03/23 0009 12/01/23214511/30/23 2255 WBC K/cumm 12.5* 13.4* 17.2* HEMOGLOBIN g/dL 8.3* 8.4* 8.3* HEMATOCRIT % 28.2* 27.3* 27.5* PLATELETS K/cumm 481* 519* 382 Recent Labs Lab Units 12/03/23 0009 12/02/23 2047 12/02/23 1647 12/02/23 0819 12/01/23214512/01/23 0811/30/23 2255 SODIUM mmol/L 134* -- -- -- [...] surgery. Will plan to start discussion with hourly sign language interpreter onc to coordinate possible surgery. Colorectal surgery [...] 10:51 AM CDTAssociated Order(s): IP CONSULT TO RECREATION PROGRAM SPECIALIST Images from the original note were not included. EQUIPMENT TECH ONC CONSULT NOTE Bed: [id number] Pelvic bed: No Reason for consult: pelvic [...] her complicated Crohn's Disease.Given possibility of procedure, [facility] Onc team consulted for possible coordination of surgery for mass removal. Patient reports no new hourly sign language interpreter changes since last admitted. Denies vaginal bleeding or discharge. Reports increased feeling of satiety and wonders if the mass plays a roll in that. Has no specific questions for hourly sign language interpreter team other than requesting that her surgery [...] at 12/01/23 1751 al & mag hydroxide whsvfjzgteh-qyymtoltmxaquba-kqokmkrpb-nystatin (MAGIC MOUTHWASH) oral suspension 1-1-1-1 10 mL, 10 mL, swish & swallow, Q4H PRN, iMchael Huizar MD benzonatate (TESSALON) capsule 100 mg, [...] meals, Richmond Mcdonnell MD, 1 Units at 12/01/231750 loperamide (IMODIUM) capsule 2 mg, 2 mg, [...] PRN, Michael Huizar MD, 1 spray at 11/29/232057 polyethylene glycol (MIRALAX) packet 17 g, 17 [...] inflammatory bowel disease. #Pelvic Mass - 09/07 [facility] US at OSH w/ 12 x 11.2 [...] colostomy/sigmoidectomy and if planning on doing so, hourly sign language interpreter oncwill coordiante tandem mass resection. Discussed with hourly sign language interpreter onc fellow Dr. Storm [facility] Onc team: [phone] ELECTROPLATER HELPER consult: [phone] 12/02/23 Renée Rendon MD, MS ELECTROPLATER HELPER PGY-4 Cosigned by Betty Khan MD at [...] and Family: Patient unable to answer Attends Islam Services: Patient unable to answer Active Member [...] fellow, resident. Ricky Vasquez MD * Sylvia Trujillo, RD - 11/27/2023 3:34 PM CDTAssociated Order(s): [...] polyethylene glycol ramelteon Recent Labs Lab Units 11/26/237 11/25/23 2252 SODIUM mmol/L 127* 130* POTASSIUM PLASMA mmol/L 4.3 4.6 CHLORIDE mmol/L 90* 95* CO2 mmol/L 26 26 BUN SERUM mg/dL 19 18 CREATININE mg/dL 0.91 0.81 TXT-SVH-CDHKFLQ mL/min/1.73 m2 70 81 CALCIUM mg/dL 8.6 [...] Adult Diet Regular Diet effective now Question: ([facility]) Diet type Answer: Regular 11/27/23 1256 11/26/23 2100 Bedtime snack At bedtime Comments: If bedtime BG is less than 100mg/dl, give patient a 15 gram carbohydrate snack. 11/25/23 2131 11/26/23 0700 Oral Nutrition Supplements Quantity (# of cans): 1 can; ([facility]) Select Supplement: Ensure High Protein - Vanilla All Meals Question Answer Comment Quantity (# of cans): 1 can ([facility]) Select Supplement: Ensure High Protein - Vanilla [...] butter as snack 1 container (small) of vatican citizen yogurt) Creamed corn with 2 popcorn shrimp without breading. Today for lunch patient ate maybe 1 bite of potatoes and 1 bite of chicken without the breading, and 2 bites of a protein bar. DEMETRI (ASPEN) MALNUTRITION ASSESSMENT: Date of completion: 11/27/2023 ASPEN/AND Malnutrition Screening: Chronic illness or injury severe Subcutaneous Fat Loss Severity: Severe Muscle Mass Loss Severity: Severe Patient Meets Criteria for Severe Malnutrition: Yes NUTRITION FOCUSED PHYSICAL EXAM: Completed. Subcutaneous Fat Loss Orbital Region - Surrounding the Eye: Hollow look Upper Arm Region - Triceps/Biceps: Some depth pinch but not ample Muscle Loss Mandaeism Region - Temporalis Muscle: Slight depression Clavicle [...] mg daily Patient agreeable to trying a Masterseek 1.0 chocolate shake (pea protein) which has [...] of care, Labs Sylvia Trujillo, MS RDN, [facility], * Lulú Dejesus DNP - 11/27/2023 12:01 [...] to close this loop. Cosigned by Bharathi Escamilla Chi, MD at 11/27/2023 2:47 PM CDT * Laury Iverson MD - 11/26/2023 12:20 PM CDTAssociated Order(s): CONSULT TO GENERAL INFECTIOUS DISEASE Infectious Disease Initial Consult Note Contact Information: Please see [facility] Treatment Team listing for up-to-date contact [...] discharged on p.o. antibiotics -- amoxicillin clavulanate [id number] mg q.8 hours and metronidazole 500 mg [...] operative management. Current Facility-Administered Medications Ordered in Psychiatric Medication Dose Route Frequency Provider Last Rate Last Admin acetaminophen (TYLENOL) tablet 650 mg 650 mg oral Q4H PRN Richmond Mcdonnell MD benzonatate (TESSALON) capsule 100 mg 100 mg oral TID PRN Sabine Collier MD 100 mg at 11/26/23 09 ciprofloxacin (CIPRO) tablet 500 mg 500 mg [...] Daily-2100 Louise Mendieta MD 40 mg at glucagon injection 1 mg 1 mg intramuscular Q30 Min PRN Richmond Mcdonnell MD insulin lispro (HumaLOG, ADMELOG) 100 unit/mL injection 0-4 Units 0-4 Units subcutaneous Nightly Richmond Mcdonnell MD insulin lispro (HumaLOG, ADMELOG) 100 unit/mL injection 0-5 Units 0-5 Units subcutaneous TID with meals Richmond Mcdonnell MD losartan (COZAAR) tablet 25 mg 25 mg oral Daily Richmond Mcdonnell MD 25 mg at 910 metroNIDAZOLE (FLAGYL) tablet 500 mg 500 mg oral BID Richmond Mcdonnell MD 500 mg at 11/26/23 0910 ondansetron (ZOFRAN) injection 4 mg 4 mg intravenous Q4H PRN Richmond Mcdonnell MD pantoprazole DR (PROTONIX) extended release tablet 40 mg 40 mg oral Daily Richmond Mcdonnell MD 40 mg at 11/26/23 0910 polyethylene glycol (MIRALAX) packet 17 g 17 [...] of your patient. Please chat message in [facility] or call the ID team 4 attending with any questions or concerns at [phone] during daytime hours. If there is an emergency after hours then the ID fellow communications media professor can be reached at [phone]. Supplementary Attestation Medical Decision Making: Today, I [...] private GI pager during weekdays or the [facility] phone during after hours and weekends. [...] concerns please contact the Wound/Ostomy department at [phone] Chen Douglas RN LE AND HEEL STIFFENER * Melida Richards RN - 12/29/2023 11:48 [...] Dressing Status Open to Air Site Assessment Clean;Fragile;Moist;[place] Shape & Pattern Oval Flora-wound Assessment Dry;Intact [...] concerns please contact the Wound/Ostomy department at [phone]. Melida Richards RN LE AND HEEL STIFFENER * Melida Richards RN - 12/29/2023 11:42 AM CST [...] LUQ (Active) Stomal Appliance Changed;1 piece;Flat;Intact 12/29/23 1001 Appliance intact? Yes 12/29/23 1001 Stoma Assessment Red;Round;Moist 12/29/23 1001 Stoma size (comment mm vs. in) 32 (mm) 12/29/23 1001 Peristomal Assessment Intact 12/29/23 100 Mucocutaneous Junction/Treatment Intact (sutures noted) 12/29/23 1001 Interventions Peristomal skin care;Appliance change;Education 12/29/23 1001 Stool Output (mL) 50 mL 12/29/23 1001 Stool Net Output (mL) 50 mL 12/29/23 1001 Education: Pt colostomy education reviewed with pt and pt spouse. Pt changed pouch at this visit. Plan of care discussed with: Pt, pt spouse, RN and LOG SNAKER Follow up: Plan to follow up, as needed regularly until discharged Any questions or concerns please contact the Wound/Ostomy department at [phone]. Melida Richards RN LE AND HEEL STIFFENER * Carlie Keith RN - 12/27/2023 3:34 PM CST Care assumed at 1500. She is alert and oriented. Medicated per APR. LE AND HEEL STIFFENER * Chen Douglas RN - 12/26/2023 2:41 [...] Excretions: Stool Excretion Color: brown liquid Comments: 12/26/23899 Ostomy 12/24/23 Colostomy LUQ Placement Date/Time: 12/24/23 1524 Present on Hospital Admission: No Ostomy type: Colostomy Location: LUQ Stomal Appliance 1 piece;Flat;Intact;Changed Appliance intact? Yes Stoma Assessment [place];Edematous;Moist Peristomal Assessment Intact Mucocutaneous Junction/Treatment Intact (sutures visible) Interventions Appliance change;Education Education: Education packet reviewed: reviewed emptying, rinsing, and changing pouch. Reviewed ordering supplies when to change and empty pouch. Plan of care discussed with: RN please have patient assist emptying Questions answered: Yes Wound/Ostomy will follow patient: yes Any questions or concerns please contact the Wound/Ostomy department at [phone] Chen Douglas RN LE AND HEEL STIFFENER * Melida Richards RN - 12/25/2023 11:16 AM CST Wound/Ostomy Service Follow up Consult Note Admit Date: 11/25/2023 6:29 PM Today's Date: 12/25/23 Day of Hospital Stay: Hospital Day: 31 Reason for Follow up: colostomy Nutrition: Body mass index is 23.06 kg/m??. Support Surfaces: Type of Bed: foam Type of Sitting Surface:foam Skin/Wound Assessment: 12/25/23 08 Ostomy 12/24/23 Colostomy LUQ Placement Date/Time: 12/24/23 [...] concerns please contact the Wound/Ostomy department at [phone]. Melida Richards RN LE AND HEEL STIFFENER * Melida Richards RN - 12/23/2023 1:04 [...] questions at this time. Melida Richards RN LE AND HEEL STIFFENER * Idalia Stephenson RN - 12/18/2023 3:40 [...] Pt will remain on division with CTM, accounting practice manager at bedside and assumed care. * Yuridia Atkinson RN - 11/25/2023 [...] related to Diabetes will improve: Collaborate with continuous loft operator for diabetes evaluation and/or teaching Problem: Neurosensory [...] body part Outcome: Progressing Flowsheets (Taken 12/30/2023 2910) Maintain proper alignment of affected body part: [...] Flowsheets (Taken 12/17/20231929 by Samy Lyn) Maintains or returns to baseline bowel [...] airway will improve Outcome: Progressing Flowsheets (Taken 11/26/2023 2334 by Debbie Yen, RN) Ability to maintain a clear airway will improve: Evaluate breath sounds Problem: Skin/Tissue Integrity Goal: Incisions, wounds, or drain sites healing without S/S of infection Outcome: Progressing Flowsheets (Taken 12/17/20231929 by aSmy Lyn) Incision(s), Wound(s) or Drain Site(s) healing [...] or at baseline Outcome: Progressing Flowsheets (Taken 12/20/2023 0215 by Debbie Yen, ABHAY) Absence of cardiac dysrhythmias or at baseline: Continuous cardiac monitoring, monitor vital signs, obtain 12 lead EKG if indicated Administer antiarrhythmic and heart rate control medications as ordered Initiate emergency measures for life threatening arrhythmias Goals: Clinical Goals for the Shift: pain control, diet tolerance, ambulation in room and hallways with assistance, monitor I&O, monitor incisions and wounds, VSS, afebrile Mcc Patient Centered Goal for Treatment: dc home [...] with wound cleanser, DISPO planning for today LE AND HEEL STIFFENER * ECIN Note - Shazia Mario RN - 12/30/2023 11:24 AM CST Images from the original note were not included. ADMISSION FORM Encounter # MR# Enc Start Date Time 11/25/2023-1829 Pt Location [id number] [facility] 6900 CSN# LOC Clin Svc PAT Enc Type [id number] Acute Colon Rectal Surgery Inpatient Adm Dx CodeDesc Ulcerative colitis (HCC) [K51.90] ;;; Inf Dis Visitor Restriction Confidential Adm Type Adm Source Last Enc Date No Urgent 1 Date - Age Race Ethnicity Crum Name 1960 (63 yrs) White Non- Gender Marital Episcopal Soc Sec # Female JEWISH [id number] Health Care Proxy [facility] Patient Living Will Status Bermudian Patient Name Address, Phone Employer Name, Address, Phone Empl DARIUS Valenzuela [address] [place] [address] Home: 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 [address] [place] [id number] Guarantor Name, Pt Rel, Address, Phone Guarantor Empr, Address, Phone Emplm DARIUS Valenzuela [address] Self SS#: [id number] [place] [address] [place] [address] Work: [employer] Name Home Phone Work Phone Mobile Phone Relationship Lgl GrJEAN CLAUDE Regalado [phone] Spouse Insurance 1 Name, Address, Phone Policy Number Group Number SubscriberDODARIUS REIS 1960 Subscriber Employer [employer] [id number] Referral/Authorization # , Eff. Date Pre-Cert. Phone Verified? 02/18/2016 Insurance 2 Name, Address, Phone Policy Number Group Number SubscriberDARIUS SCHERER 1960 Subscriber Employer MEDICARE/MEDICARE PART A & B [id number] [address] Referral/Authorization # [place] [id number] Eff. Date Pre-Cert. Phone Verified? 04/18/2023 Insurance 3 Name, Address, Phone Policy Number Group Number SubscriberDOB Subscriber Employer / Referral/Authorization # , Eff. Date Pre-Cert. Phone Verified? Insurance 4 Name, Address, Phone Policy Number Group Number SubscriberDOB Subscriber Employer / Referral/Authorization # , Eff. Date Pre-Cert. Phone Verified? Primary Physician Referring Physician Admitting Physician, ID Attending Physician, Kaushal Alfaro MD [phone] MD Jhon Humphrey Matthew G., MD Incident Date Incident Type Inc St/Prov Incident Description / Location FOR EMS ONLY: LE AND HEEL STIFFENER * ECIN Note - Shazia Mario RN - 12/30/2023 11:22 AM CST [address] [address] Date: Dec 25, 2023 Ambulatory referral to Home Health Patient: Darius Russo [address] [place] [address] : 1960 SSN: [id number] Sex: F Insurance: [facility] Referring Provider Information: BOBBY TYLER Referral Information: # Visits: 1 Referral Type: Home Health [42] Urgency: Routine Referral Reason: Specialty Services Required Start Date: Dec 25, 2023 End Date: To be determined by Insurer Diagnosis: Diverticulitis of large intestine with perforation without abscess or bleeding (K57.20) Refer to Dept: [facility] Home Care Services [address] [place], [address] Service Line: Home Health Primary disciplines requested: Custodial Home Health Services: Wound/Ostomy Care Does the patient have a wound vac? No Wound Information: ostomy care and teaching, wound check, if abdominal jesu present, remove 14 days post op Requested Start of Care Date: 24-48 hours Physician to follow patient's care (the person listed here will be responsible for signing ongoing orders): Other Comment: Mutch I attest that I or another qualified [...] Authorizing Provider: Bobby Tyler NP ( ) Dance Professor: Yo Perez MD This document serves as a request of services and does not constitute Insurance authorization or approval of services. To determine eligibility, please contact the member???s Insurance carrier to verify and review coverage. If you have medical questions regarding this request for services. Please contact [facility] [phone] between the hours of 8:00am - 4:30pm (Mon-Fri). LE AND HEEL STIFFENER * Plan of Care - Bhupendra Velaa - 12/29/2023 10:09 PM CST Goals: Clinical Goals for the Shift: Increased ambulation today, drink more supplement, void trial (to void in hat and call staff for bladder scan), routine repositioning and pain management. Mcc Patient Centered Goal for Treatment: Safe discharge [...] cardiac dysrhythmias or at baseline Outcome: Progressing LE AND HEEL STIFFENER * Plan of Care - Yakelin Hill - 12/29/2023 6:56 PM CST Goals: Clinical Goals for the Shift: Increased ambulation today, drink more supplement, void trial (to void in hat and call staff for bladder scan), routine repositioning and pain management. Mcc Patient Centered Goal for Treatment: Safe discharge Summary: Patient has increased mobility today, passed void trial and drinking her supplement. However, patient c/o distention and poor appetite today despite of effort. Doctor has been notified. LE AND HEEL STIFFENER * Plan of Care - Tiffanie Vela - 12/29/2023 12:59 AM CST Goals: Clinical Goals for the Shift: VSS, pain/nausea control, I&O, saba/ostomy care, safety. Oil Well Perforator Operator Patient Centered Goal for Treatment: Safe discharge [...] cardiac dysrhythmias or at baseline Outcome: Progressing LE AND HEEL STIFFENER * Plan of Care - Yakelin Hill - 12/28/2023 6:57 PM CST Goals: Clinical Goals for the Shift: VSS, pain/nausea control, I&O, saba/ostomy care, safety. Mcc Patient Centered Goal for Treatment: Safe discharge Summary: Patient ambulated in the hallways, stage 2 pressure ulcer noted to coccyx. Foam applied. Pt verbalized understanding on how to empty colostomy bag. LE AND HEEL STIFFENER * Plan of Care - Narcisa Ibarra RN - 12/27/2023 10:18 PM CST Goals: Clinical Goals for the Shift: VSS, pain/nausea control, I&O, saba/ostomy care, safety. Mcc Patient Centered Goal for Treatment: Safe discharge [...] cardiac dysrhythmias or at baseline Outcome: Progressing LE AND HEEL STIFFENER * Plan of Care - Katy Guidry [...] pain, encouraging ambulation, patient is tolerating diet LE AND HEEL STIFFENER * Plan of Andres - Teetee Edwards RN - 12/26/2023 4:12 [...] urine output comparatively better today, denies dizziness, SOFTWARE CONFIGURATION MANAGER discontinued, encourage for feeds, low appetite, ambulation tolerated fairly well LE AND HEEL STIFFENER * Plan of Care - Shazia Mario RN - 12/26/2023 1:19 PM CST 12/26/23 1126 Discharge Planning Support System Spouse/Significant Other;Family members (JEAN CLAUDE RUSSO (Spouse) ) Anticipated discharge level of shelter health care Does the patient need discharge [...] agencies. The following agencies have declined patient: [facility] ([id number]) [facility] Home Care Services/[facility]/[employer] [facility] Support following discharge: per family Transportation: per family F/U Appointments: Per CRS medical team Plan for weekend discharge: No, patient needs more ostomy teaching and patient does not have HH established yet at this time due to no accepting agencies in patient's area For weekend assistance, please check the treatment team in Psychiatric for the assigned child welfare caseworker or contact the weekend Case Management phone. LE AND HEEL STIFFENER * Consults, Subsequent - Cara Guy NP - 12/26/2023 6:00 AM INSOLE AND HEEL STIFFENER Infectious Disease Subsequent Consult Note Infectious Disease Team: General 4 Contact Information: Please see [facility] Treatment Team listing for up-to-date contact [...] and adnexal mass. She was admitted to [facility] on 11/24 for further workup and [...] Patient went to the OR 12/23 with EQUIPMENT TECH, CRS and urology for ex lap, left colectomy with end colostomy, LIBRA, BSO and ureteral stent placement. Surgery reporting source control archived. Given source control has been achieved, we are planning on 5 days of antibiotics from surgery. On assessment today, patient reports minimal use of her SOFTWARE CONFIGURATION MANAGER and that she typically has abdominal discomfort [...] and adnexal mass. She was admitted to [facility] on 11/24 for further workup and [...] described in the note., Reviewed notes by EQUIPMENT TECH, CRS, nursing and CM to determine appropriate [...] Iverson. Cara Guy, Team 4 Infectious Diseases LOG SNAKER Please contact the Team 4 ID LOG SNAKER M-F, 7-3; or the Attending at the phone numbers in care team with any questions or concerns. After hours, please contact the ID fellow communications media professor. Cosigned by Lauyr Iverson MD at 12/26/2023 3:40 PM INSOLE AND HEEL STIFFENER LE AND HEEL STIFFENER LE AND HEEL STIFFENER * Plan of Care - Katy Guidry [...] overnight, patient denies pain on my shift LE AND HEEL STIFFENER * Plan of Care - Shazia Mario, ABHAY - 12/25/2023 2:19 PM CST 12/25/23 2476 Discharge Planning Support System Spouse/Significant Other;Family members (JEAN CLAUDE RUSSO (Spouse) ) Anticipated discharge level of shelter health care Does the patient need discharge [...] Patient is identified to need home health alf for a new colostomy. CM sent proactive referrals to agencies near patient's home address in [place], [place]. Referrals pending, no accepting agencies at this time. CM will continue to follow for discharge needs. CM met with patient and spouse at the bedside and confirmed patient declines placement at this timeand wants HH. Patient confirmed she plans to discharge home to her home address and that [facility] is primary and Medicare is secondary [...] Patient and/or family are agreeable with plan. event services manager will continue to follow and assist with discharge planning as needed. If any further discharge needs arise, please contact the covering child welfare caseworker. LE AND HEEL STIFFENER * Plan of Care - Teetee Edwards [...] has soft Bp , low urine output, Middle School Sports Coach Bobby aware, pain controlled with PCAand scheduled pain meds LE AND HEEL STIFFENER * Assessment & Plan Note - Cara Guy NP - 12/25/2023 1:25 PM INSOLE AND HEEL STIFFENER Associated Problem(s): Ulcerative pancolitis with complication (CMS/HCC) (HCC) Patient is a 63 y.o. female with a history of hypertension, type 2 diabetes, and inflammatory boweldisease who is [facility] for progressive weight loss and nausea in the setting of multiple admissions for diverticulitis complicated by contained sigmoid perforation, scattered liver and spleen abscesses and adnexal mass. She was admitted to [facility] on 11/24 for further workup and [...] Patient went to the OR 12/23 with EQUIPMENT TECH, CRS and urology for ex lap, left colectomy with end colostomy, LIBRA, BSO and ureteral stent placement. Surgery reporting source control archived. Given source control has been achieved, we are planning on 5 days of antibiotics from surgery. On assessment today, patient reports minimal use of her SOFTWARE CONFIGURATION MANAGER and that she typically has abdominal discomfort [...] hesitate to reach out. ID signing off LE AND HEEL STIFFENER LE AND HEEL STIFFENER * Consults, Subsequent - Cara Guy NP - 12/25/2023 5:00 AM INSOLE AND HEEL STIFFENER Infectious Disease Subsequent Consult Note Infectious Disease Team: General 4 Contact Information: Please see [facility] Treatment Team listing for up-to-date contact information. Subjective Chief complaint of Spleen and liver abscesses, contained perforation, lung nodules with cavitation Interval History: -Patient went to the OR with EQUIPMENT TECH, CRS and urology yesterday. Per surgery, source [...] found. Assessment/Plan Ulcerative pancolitis with complication (CMS/HCC) ([facility]) Assessment & Plan Patient is a 63 y.o. female with a history of hypertension, type 2 diabetes, and inflammatory boweldisease who is admitted [facility] for progressive weight loss and nausea in the setting of multiple admissions for diverticulitis complicated by contained sigmoid perforation, scattered liver and spleen abscesses and adnexal mass. She was admitted to [facility] on 11/24 for further workup and [...] Patient went to the OR yesterday with EQUIPMENT TECH, CRS and urology for ex lap, left [...] and adnexal mass. She was admitted to [facility] on 11/24 for further workup and ID was consulted on 11/25 for antibiotic recommendations. Please see consult note regarding details leading up to current admission. Results: T spot 10/26: negative EBV 10/26: positive ab and IgG Blood cultures 11/03: NG CT C/A/P 11/25: FRAKNLIN peribronchovascular nodules, some of which are cavitating [...] Iverson. Cara Guy, Team 4 Infectious Diseases LOG SNAKER Please contact the Team 4 ID LOG SNAKER M-F, 7-3; or the Attending at the phone numbers in care team with any questions or concerns. After hours, please contact the ID fellow communications media professor. Cosigned by Laury Iverson MD at 12/25/2023 4:28 PM INSOLE AND HEEL STIFFENER LE AND HEEL STIFFENER LE AND HEEL STIFFENER Associated attestation - Laury Iverson MD - 12/25/2023 4:28 PM INSOLE AND HEEL STIFFENER I have seen and examined the patient [...] well managed, patient is tolerating clear diet. LE AND HEEL STIFFENER * Post-Procedure Note - King Boss MD - 12/24/2023 8:24 PM INSOLE AND HEEL STIFFENER Post-operative Assessment Subjective Pain controlled. Denies N/V. [...] Yo Perez MD at 12/27/2023 1:20 PM INSOLE AND HEEL STIFFENER LE AND HEEL STIFFENER LE AND HEEL STIFFENER * Perioperative Nursing Note - Pavel Ordonez RN - 12/24/2023 5:45 PM INSOLE AND HEEL STIFFENER RN called MD Cohen; pt's dilaudid order is incorrect. Per MD will change it . Waiting on orders... LE AND HEEL STIFFENER * Plan of Care - Queta Mayers [...] cardiac dysrhythmias or at baseline Outcome: Progressing LE AND HEEL STIFFENER * Op Note - Jak Meehan MD - 12/24/2023 12:31 PM CST OPERATIVE REPORT Patient Name: DARIUS RUSSO : 1960 Operative date: 12/24/23 Preoperative diagnosis: Crohn's with microperforation and abdominal abscesses Postoperative diagnosis: same Procedure: Cystoscopy with bilateral temporary ureteral stent placement Surgeon: Jak Meehan MD Housekeeper Home: Flako Santacruz Anesthesia: General anesthesia Indications: Darius [...] We cannulated bilateral ureteral orifices with 5 Uzbek whistle-tip ureteral catheters without any resistance, difficulty, [...] None Implant: None Drains: 1. Bilateral 5 Uzbek internal-external ureteral catheters 2. Saba catheter Disposition: Patient will be turned over to the care under the primary team. The ureteral catheters and Saba catheter may be removed per primary team. I was present for the brown portion of the procedure: The brown portions were stent placement. I was immediately available for the remainder of the procedure. Jak Meehan MD LE AND HEEL STIFFENER * Op Note - Quinton Moe MD [...] and microperforation that failed medical management. A hourly sign language interpreter US at OSH 09/07 also identified a 15.1 cm complex cystic lesion in R pelvis. Tumor markers 09/2023 were notable for CEA 3.2, CA19-9 9.4, CA-125 104. She desired definitive management at the time of colorectal surgical exploration. Operative Findings: EUA: Normal external genitalia. Small, mobile uterus. Palpable, mobile adnexal mass. Laparotomy: At time of hourly sign language interpreter onc team arrival, no intra-abdominal adhesive disease. [...] [facility]. The urologic surgery [...] portion. Estimated Blood Loss: 50 mL for hourly sign language interpreter portion Urine Output: See final operative report [...] Melissa Rhodes MD at 12/30/2023 9:45 AM INSOLE AND HEEL STIFFENER LE AND HEEL STIFFENER LE AND HEEL STIFFENER Associated attestation - Melissa Rhodes MD - 12/30/2023 9:45 AM INSOLE AND HEEL STIFFENER I was present for the entire portion of the gynecologic procedure. * Op Note - Yo Perez MD - 12/24/2023 12:31 PM CST SURGEON Yo Perez MD Co Surgeon: Melissa Taylor expertise was required for the hysterectomy as this is outside my area and scope of practice FIRST AUTOMOTIVE MECHANICAL ENGINEER Vicki King PREOPERATIVE DIAGNOSIS Perforated colitis POSTOPERATIVE [...] It was securedto the skin with a [place] clamp. We then closed the midline incision [...] Perez, was present for the entire case. LE AND HEEL STIFFENER * Plan of Care - Kerline Hartmann RN - 12/24/2023 1:44 AM CST Goals: Clinical Goals for the Shift: Monitor vitals , labs promote safety and comfort Summary: LE AND HEEL STIFFENER * Plan of Care - Meka Ackerman [...] pain control plan will improve Outcome: Progressing LE AND HEEL STIFFENER * Plan of Care - Kerline Hartmann [...] , labs promote safety and comfort Summa LE AND HEEL STIFFENER * Consults, Subsequent - Jyotsna Patton MD PhD - 12/22/2023 1:28 PM INSOLE AND HEEL STIFFENER Brief GI update -NAEO -awaiting surgery 12/23 [...] private GI pager during weekdays or the [employer] phone during after hours and weekends. Jyotsna Patton MD PhD GI Fellow Cosigned by Shayne Ching MD at 12/25/2023 7:58 AM INSOLE AND HEEL STIFFENER LE AND HEEL STIFFENER LE AND HEEL STIFFENER Associated attestation - Shayne Ching MD - 12/25/2023 7:58 AM INSOLE AND HEEL STIFFENER I have seen and examined the patient [...] CRS surgery(Colectomy) 12/23. [facility] No anticipated home care needs at this time F/U Appointments: Pending Patient's Identified Problem/Goal Problem:?Ensure acute medical needs are met and that patient has a safe discharge plan. Goal:?Secure a discharge plan that patient/family are agreeable with?and ensure patient has continuum of care. Patient and/or family are agreeable with plan. event services manager will continue to follow and assist with discharge planning as needed. If any further discharge needs arise, please contact the covering child welfare caseworker. Dariana Cramer RN,BSN,CM LE AND HEEL STIFFENER * Plan of Care - Meka Ackerman [...] healing without S/S of infection Outcome: Progressing LE AND HEEL STIFFENER * Plan of Andres - Lea Jackson [...] intake improved, denies pain , safety maintained. LE AND HEEL STIFFENER * Plan of Care - Carmen Verde - 12/21/2023 5:03 PM CST Goals: Clinical Goals for the Shift: monitor labs and vitals, maintain comfort and safety Summary: Pt A+O, RA, VSS. Pt received medications as prescribed. Pt had no safety events during shift. Pt currently resting comfortably, bed in lowest position, call light within reach. Will continueto monitor until safe handoff performed. LE AND HEEL STIFFENER * Plan of Care - Kaylah Portillo [...] abdominal pain exacerbated by cough. Care continues. LE AND HEEL STIFFENER * Plan of Care - Shauna Sidhu [...] RN - 12/19/2023 1:26 PM CDT 12/19/23 6850 Discharge Planning Support System Spouse/Significant Other;Family members (Jean Claude/spouse [phone]) Anticipated discharge level of care Private residence [...] CRS surgery(Colectomy) 12/23. Plan to transfer to [facility]. No anticipated home care needs at this time F/U Appointments: Pending Patient's Identified Problem/Goal Problem:?Ensure acute medical needs are met and that patient has a safe discharge plan. Goal:?Secure a discharge plan that patient/family are agreeable with?and ensure patient has continuum of care. Patient and/or family are agreeable with plan. event services manager will continue to follow and assist with discharge planning as needed. If any further discharge needs arise, please contact the covering child welfare caseworker. Dariana Cramer RN,BSN,CM * Plan of Care - Meka Ackerman RN - 12/19/2023 8:05 [...] or minimized. Outcome: Progressing * Plan of Andres - Jennifer Martin RN - 12/19/2023 5:09 [...] related to Diabetes will improve: Collaborate with continuous loft operator for diabetes evaluation and/or teaching Problem: Neurosensory [...] and hemodynamic stability Outcome: Progressing Flowsheets (Taken 12/17/20231929) Maintain optimal cardiac output and hemodynamic Stability: [...] RN - 12/17/2023 1:36 PM CDT 12/17/23 3030 Discharge Planning Support System Spouse/Significant Other;Family members (Jean Claude/spouse [phone]) Anticipated discharge level of care Private residence [...] CRS surgery(Colectomy) 12/23. Plan to transfer to [facility]. No anticipated home care needs at this time F/U Appointments: Pending Patient's Identified Problem/Goal Problem:?Ensure acute medical needs are met and that patient has a safe discharge plan. Goal:?Secure a discharge plan that patient/family are agreeable with?and ensure patient has continuum of care. Patient and/or family are agreeable with plan. event services manager will continue to follow and assist with discharge planning as needed. If any further discharge needs arise, please contact the covering child welfare caseworker. Dariana Cramer RN,BSN,CM * Consults, Subsequent - [...] lobe of lung (CMS/HCC) (HCC) Fever Darius J Willhoit is a 63 y.o. female with PMH [...] ertapenem during these episodes. Recommendations: - Appreciate CRS/Cemetery Laborer Onc consults. Discussing with them if recurrent [...] private GI pager during weekdays or the [facility] GI phone during after hours and weekends. [...] related to Diabetes will improve: Collaborate with continuous loft operator for diabetes evaluation and/or teaching Problem: Neurosensory [...] worsening sigmoid perf/fluid collection. Recommendations: - Appreciate CRS/Cemetery Laborer Onc consults. Discussing with them if recurrent [...] private GI pager during weekdays or the [facility] GI phone during after hours and weekends. [...] Team: General 4 Contact Information: Please see [facility] Treatment Team listing for up-to-date contact [...] and adnexal mass. She was admitted to [facility] on 11/24 for further workup and [...] and adnexal mass. She was admitted to [facility] on 11/24 for further workup and [...] CMP. Cara Guy, Team 4 Infectious Diseases LOG SNAKER Please contact the Team 4 ID LOG SNAKER M-F, 7-3; or the Attending at the phone numbers in care team with any questions or concerns. After hours, please contact the ID fellow communications media professor. * Plan of Care - Nohemi Corona [...] Support System Spouse/Significant Other;Family members (Jean Claude/spouse [phone]) Anticipated discharge level of care Private residence [...] Patient and/or family are agreeable with plan. event services manager will continue to follow and assist with discharge planning as needed. If any further discharge needs arise, please contact the covering child welfare caseworker. Dariana Cramer RN,BSN,CM * Consults, Subsequent - [...] worsening sigmoid perf/fluid collection. Recommendations: - Appreciate CRS/Cemetery Laborer Onc consults. Discussing with them if recurrent [...] private GI pager during weekdays or the [employer] phone during after hours and weekends. Fernando [...] and adnexal mass. She was admitted to [facility] on 11/24 for further workup and [...] please do not hesitate to reach out. LE AND HEEL STIFFENER LE AND HEEL STIFFENER * Plan of Care - Dariana Cramer RN - 12/12/2023 12:30 PM CDT 12/12/23 1229 Discharge Planning Support System Spouse/Significant Other;Family members (Jean Claude/spouse [phone]) Anticipated discharge level of care Private residence Does the patient need discharge transport arranged? No (Jean Claude/spouse [phone]) Discharge Transportation Communication Mode of transport has [...] Patient and/or family are agreeable with plan. event services manager will continue to follow and assist with discharge planning as needed. If any further discharge needs arise, please contact the covering child welfare caseworker. Dariana CramerRN,BSN,CM * Medical Student - Amanda Westfall - [...] oral, Q6H PRN al & mag hydroxide mfxjzorjrcz-cmdxrdnlaprvozc-jfzwdiqon-nystatin (MAGIC MOUTHWASH) oral suspension 1-1-1-1 15 mL, [...] 40 mg, subcutaneous, Daily-2100, 40 mg at 12/11/232207 folic acid (FOLVITE) tablet 1 mg, 1 mg, oral, Daily, 1 mg at 12/12/2314 glucagon injection 1 mg, 1 mg, intramuscular, [...] 500 mg, oral, BID, 500 mg at 12/12/2314 multivitamin with folic acid 400 mcg tablet 1 tablet, 1 tablet, oral, Daily, 1 tablet at 12/12/2314 ondansetron (ZOFRAN) injection 4 mg, 4 mg, intravenous, Q4H PRN, 4 mg at 12/09/[address] (PROTONIX) extended release tablet 40 mg, 40 mg, oral, Daily, 40 mg at 12/12/23913 phenoL (CHLORASEPTIC) 1.4 % oral spray 1 [...] 12/11/23 0314 12/11/23 0010 12/09/23 2302 12/09/23 122612/08/232029 HEMOGLOBIN g/dL 7.3* < > 7.0* 7.3* 9.1* 8.4* HEMATOCRIT % 25.3* < > 23.7* 24.2* 31.0* 27.6* WBC K/cumm 8.2 -- 10.2* 17.9* 16.5* 10.0* PLATELETS K/cumm 290 -- 424* 413* 516* 483* < > = values in this interval not displayed. Recent Labs Lab Units 12/11/23 2215 12/11/23 0010 12/09/23 2302 12/09/23 1227 12/08/23202912/07/23 2116 SODIUM mmol/L 140 138 < > [...] interval not displayed. Recent Labs Lab Units 12/11/232214 ALBUMIN g/dL 2.8* ALK PHOS Units/L 83 [...] mass is concerning for ovarian malignancy, but hourly sign language interpreter/onc evaluation of adnexal mass gives a low [...] - Colorectal surgery consult: TAC with concurrent hourly sign language interpreter/onc resection of adnexal mass on 12/23 - [...] tachyarrhythmia troponins were elevated, EKG reassuring against MN so suspect demand ischemia. Similar episode on [...] incidentally on imaging in August. Following with hourly sign language interpreter onc, Dr. Rhodes. 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 - Considering colectomy with CRS so will also consult hourly sign language interpreter/onc for consideration of concurrent cyst removal. # [...] output and hemodynamic stability Outcome: Progressing Summary: Electronically signed by Kaylee Tovar 12/12/2023 10:15 AM CDT * Consults, Subsequent - Cara Guy, DIANA - 12/12/2023 4:48 AM CDT Infectious Disease Subsequent Consult Note Infectious Disease Team: General 4 Contact Information: Please see [facility] Treatment Team listing for up-to-date contact information. [...] Stop 12/06/23 1223 al & mag hydroxide ppidyruqsuy-avyboyzbiwrxjus-vhxahasod-nystatin (MAGIC MOUTHWASH) oral suspension 1-1-1-1 15 mL [...] Max: 99 % Most Recent : Vitals: 12/12/23726 BP: 131/74 Pulse: 94 Resp: 18 Temp: [...] and adnexal mass. She was admitted to [facility] on 11/24 for further workup and [...] and adnexal mass. She was admitted to [facility] on 11/24 for further workup and [...] in the note., Reviewed notes by CRS, EQUIPMENT TECH, GI, nursingand primary team to determine appropriate [...] cmp. Cara Guy, Team 4 Infectious Diseases LOG SNAKER Please contact the Team 4 ID LOG SNAKER M-F, 7-3; or the Attending at the phone numbers in care team with any questions or concerns. After hours, please contact the ID fellow communications media professor. * Provider Query - Jhonny Kirby MD [...] CT, a 20cm benign ovarian cyst (per hourly sign language interpreter), and splenic/liver microabscesses (thought to be seeding [...] you, Estella Earl RN, BSN, CDI Email: [email or web address] Clinical Documentation Payroll Officer * Plan of Care - Gillian Gilbert [...] Patient and/or family are agreeable with plan. event services manager will continue to follow and assist with discharge planning as needed. If any further discharge needs arise, please contact the covering child welfare caseworker. * Consults, Subsequent - Fernando Dooley MD [...] worsening sigmoid perf/fluid collection. Recommendations: - Appreciate CRS/Cemetery Laborer Onc consults. Discussing with them if recurrent [...] private GI pager during weekdays or the [facility] [facility] phone during after hours and weekends. [...] oral, Q6H PRN al & mag hydroxide cgylluzbvuz-puotpcvoddcveoi-cofrqhetx-nystatin (MAGIC MOUTHWASH) oral suspension 1-1-1-1 15 mL, [...] subcutaneous, TID with meals, 2 Units at 12/10/231234 insulin lispro (HumaLOG, ADMELOG) 100 unit/mL injection [...] mg, oral, Daily, 40 mg at 12/10/23 0804 phenoL (CHLORASEPTIC) 1.4 % oral spray 1 [...] mass is concerning for ovarian malignancy, but hourly sign language interpreter/onc evaluation of adnexal mass gives a low [...] - Colorectal surgery consult: TAC with concurrent hourly sign language interpreter/onc resection of adnexal mass on 12/23 - [...] tachyarrhythmia troponins were elevated, EKG reassuring against MN so suspect demand ischemia. Similar episode on [...] incidentally on imaging in August. Following with hourly sign language interpreter onc, Dr. Rhodes. 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 - Considering colectomy with CRS so will also consult hourly sign language interpreter/onc for consideration of concurrent cyst removal. # [...] related to Diabetes will improve: Collaborate with continuous loft operator for diabetes evaluation and/or teaching Problem: Neurosensory [...] RN - 12/10/2023 12:43 PM CDT 12/10/23 1242 Discharge Planning Support System Spouse/Significant Other;Family members (Jean Claude/spouse [phone]) Anticipated discharge level of care Private residence Does the patient need discharge transport arranged? No (Jean Claude/spouse [phone]) Discharge Transportation Communication Mode of transport has [...] Identified (plan): Pending CRS Surgical plans. Pending Cemetery Laborer Onc c/s. Monitor nutritional status No anticipated discharge home needs F/U Appointments: Pending Patient's Identified Problem/Goal Problem:?Ensure acute medical needs are met and that patient has a safe discharge plan. Goal:?Secure a discharge plan that patient/family are agreeable with?and ensure patient has continuum of care. Patient and/or family are agreeable with plan. event services manager will continue to follow and assist with discharge planning as needed. If any further discharge needs arise, please contact the covering child welfare caseworker. Dariana Cramer RN,BSN,CM * Plan of Care [...] worsening sigmoid perf/fluid collection. Recommendations: - Appreciate CRS/Cemetery Laborer Onc consults. Discussing with them if recurrent [...] private GI pager during weekdays or the [facility] phone during after hours and weekends. Fernando Dooley MD GI Fellow * Plan of Care - Samy Lyn - 12/09/2023 11:10 PM CDT Problem: Discharge Planning Goal: Understanding discharge needs will improve Outcome: Progressing Flowsheets (Taken 12/09/20232303) Understanding of discharge needs will improve: Discuss [...] Team: General 4 Contact Information: Please see [facility] Treatment Team listing for up-to-date contact [...] 1215 12/06/23 1223 al & mag hydroxide duofirgbbuz-lkuoaishdmhvsld-yydltzvpd-nystatin (MAGIC MOUTHWASH) oral suspension 1-1-1-1 15 mL 15 mL swish & spit Every 8 hours PRN 12/06/23 1223 11/26/23 0900 [Held by Provider] metroNIDAZOLE (FLAGYL) tablet 500 mg (On hold since today at 1215 until manually unheld; held by Jhonny Kirby MDHold Reason: Change in Patient Status) 500 mg oral 2 times daily 11/25/23 2120 11/26/23 0600 [Held by Provider] ciprofloxacin (CIPRO) tablet 500 mg (On hold since today at 1215 until manually unheld; held by Jhonny Kirby MDHold Reason: Change in Patient Status) 500 mg oral 2 times daily (for quinolones,etc) 11/25/23 2120 Vitals: 24hr Min/Max: Temp Min: 36.4 ??C [...] and adnexal mass. She was admitted to [facility] on 11/24 for further workup and [...] and adnexal mass. She was admitted to [facility] on 11/24 for further workup and [...] EKG in chart was 454. CRS and EQUIPMENT TECH discussing combo case in the near future. [...] Reviewed notes by nursing, GI, pulmology, CRS, EQUIPMENT TECH and primary team to determine appropriate plan [...] cmp. Cara Guy, Team 4 Infectious Diseases LOG SNAKER Please contact the Team 4 ID LOG SNAKER M-F, 7-3; or the Attending at the phone numbers in care team with any questions or concerns. After hours, please contact the ID fellow communications media professor. * Medical Student - Amanda Westfall - [...] at 12/06/23 2138 al & mag hydroxide qbolzswctla-nxjqnzdcexmcjoz-reglmmdlv-nystatin (MAGIC MOUTHWASH) oral suspension 1-1-1-1 15 mL, [...] 40 mg, subcutaneous, Daily-2100, 40 mg at 12/08/232019 ertapenem (INVanz) 1,000 mg in sterile water [...] at 12/09/23 1153, 1,000 mL at 12/09/23 1153 Lactated Ringer's (LR) bolus 1,000 mL, 1,000 [...] 104 102 104 105 105 CO2 mmol/L 24 26 25 24 26 22 ANIONGAP mmol/L 10 7 9 8 6 10 BUN SERUM mg/dL 11 13 14 11 17 18 CREATININE mg/dL 0.73 0.80 0.82 0.82 0.79 0.81 CALCIUM mg/dL 8.8 8.7 8.3* 8.2* 8.0* 8.1* MAGNESIUM mg/dL -- 2.1 2.3 1.9 2.0 2.0 Recent Labs Lab Units 12/08/23202912/04/23 17512/04/23 1724 ALBUMIN g/dL 2.8* < > 2.5* [...] mass is concerning for ovarian malignancy, but hourly sign language interpreter/onc evaluation of adnexal mass gives a low [...] tachyarrhythmia troponins were elevated, EKG reassuring against MN so suspect demand ischemia. Similar episode on [...] - Colorectal surgery consult: TAC with concurrent hourly sign language interpreter/onc resection of adnexal mass on 12/23 - [...] incidentally on imaging in August. Following with hourly sign language interpreter onc, Dr. Rhodes. 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 - Considering colectomy with CRS so will also consult hourly sign language interpreter/onc for consideration of concurrent cyst removal. # [...] Recommendations: - f/u infectious/bronch studies - Appreciate CRS/Cemetery Laborer Onc consults. Tentative plan for TAC and [...] private GI pager during weekdays or the [facility] phone during after hours and weekends. [...] Patient and/or family are agreeable with plan. event services manager will continue to follow and assist with discharge planning as needed. If any further discharge needs arise, please contact the covering child welfare caseworker. Dariana Cramer RN,BSN,CM * Pre-Procedure Instructions - Chris Ricci NP - 12/08/2023 3:05 PM CDT [facility] Location: [facility] The night before your surgery: * Do [...] tools to help you quit or call 6-646-JLXBTEQ ( ). Visit Smokefree.gov for more information. [...] at 12/06/23 2138 al & mag hydroxide szcpxwxuwrb-pdwyybygsgunzue-vyswvpasg-nystatin (MAGIC MOUTHWASH) oral suspension 1-1-1-1 15 mL, [...] 1 mg, oral, Daily, 1 mg at 12/07/23915 glucagon injection 1 mg, 1 mg, intramuscular, [...] 25 mg, oral, Daily, 25 mg at 12/07/231210 metroNIDAZOLE (FLAGYL) tablet 500 mg, 500 mg, oral, BID, 500 mg at 12/07/232052 multivitamin with folic acid 400 mcg tablet 1 tablet, 1 tablet, oral, Daily, 1 tablet at 12/07/23915 ondansetron (ZOFRAN) injection 4 mg, 4 mg, intravenous, Q4H PRN pantoprazole DR (PROTONIX) extended release tablet 40 mg, 40 mg, oral, Daily, 40 mg at 12/07/23915 phenoL (CHLORASEPTIC) 1.4 % oral spray 1 spray, 1 spray, mouth/throat, Q4H PRN, 1 spray at 058 polyethylene glycol (MIRALAX) packet 17 g, 17 g, oral, Daily PRN pyridoxine (VITAMIN B6) tablet 100 mg, 100 mg, oral, Daily, 100 mg at 12/07/23915 ramelteon (ROZEREM) tablet 8 mg, 8 mg, oral, Nightly PRN sodium chloride 0.9% flush 0.5-20 mL, 0.5-20 mL, intra-catheter, PRN, 10 mL at 12/07/23 0601 thiamine (VITAMIN B1) tablet 100 mg, 100 mg, oral, Daily, 100 mg at 12/07/23 0916 Lab/Radiology/Diagnostic Review: Recent Labs Lab Units 12/07/23211512/06/23214612/05/23212312/05/23 1109 12/04/23 2030 HEMOGLOBIN g/dL 7.8* 8.1* 7.8* 7.6* 7.6* HEMATOCRIT % 26.1* 27.7* 26.0* 25.5* 25.3* WBC K/cumm 9.7 12.2* 12.0* 12.3* 24.2* PLATELETS K/cumm 487* 490* 446* 463* 483* Recent Labs Lab Units 12/07/23211512/06/23214612/05/23212312/04/23221812/04/23175712/04/23 1724 SODIUM mmol/L 136 136 137 137 < > 135 POTASSIUM PLASMA mmol/L 4.4 4.0 3.8 4.2 < > 4.4 CHLORIDE mmol/L 102 104 105 105 < > 102 CO2 mmol/L 24 26 22 < > 23 ANIONGAP [...] interval not displayed. Recent Labs Lab Units 12/07/23211512/04/23175712/04/23 1724 ALBUMIN g/dL 2.7* < > 2.5* [...] mass is concerning for ovarian malignancy, but hourly sign language interpreter/onc evaluation of adnexal mass gives a low [...] - Colorectal surgery consult: TAC with concurrent hourly sign language interpreter/onc resection of adnexal mass on 12/23 - [...] incidentally on imaging in August. Following with hourly sign language interpreter onc, Dr. Rhodes. 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 - Considering colectomy with CRS so will also consult hourly sign language interpreter/onc for consideration of concurrent cyst removal. # [...] hemodynamic stability Outcome: Progressing * Plan of Care - Joseline Ac - 12/07/2023 7:34 AM [...] IV fluids * Plan of Care - Mega Kimberlykavin - 12/07/2023 6:58 AM CDT Goals: Clinical [...] Recommendations: - f/u infectious/bronch studies - Appreciate CRS/Cemetery Laborer Onc consults. Tentative plan for TAC and [...] private GI pager during weekdays or the [facility] phone during after hours and weekends. [...] Zosyn IV fluid bolus Based on the [facility] approved criteria for sepsis (see below), verify [...] National Hospital Inpatient Quality Measures. (n.d.). https://www.jointcommission.org/ Conchtia Hill, Felicitas Perales, Yaima Olmos et al. Intensive Care Med (2013) 39: 165-228. Surviving Sepsis Campaign: International Guidelines for Management of Severe Sepsis and Septic Shock, 2012. https://doi.org/10.1007/k44853-969-0429-1 Felicitas Perales, Tegan Jones, Karthik Garrett. et al. Intensive Care Med (2003) 29: 530- 538. 2000 SCCM/ESICM/ACCP/ATS/SIS International Sepsis Definitions Conference https://doi.org/10.1007/e67771-636-0838-a From the ICD-10-CM Official Guidelines for Coding [...] medical record. Sincerely, BONIFACIO Rojo, RN Clinical Garnett Feeder [facility] [email or web address] * Medical Student - Amanda Westfall - [...] LR Intake/Output Summary (Last 24 hours) at 12/06/2023805 Last data filed at 12/05/2023 1658 Gross [...] oral, BID - special, 500 mg at 12/04/23456 dextrose gel in packet 15 g, 15 [...] 0-5 Units, subcutaneous, Nightly, 1 Units at 12/05/23 2115 [Held by Provider] losartan (COZAAR) tablet 25 mg, 25 mg, oral, Daily, 25 mg at 12/04/23 1121 [Held by Provider] metroNIDAZOLE (FLAGYL) tablet 500 mg, 500 mg, oral, BID, 500 mg at 12/04/23 112 multivitamin with folic acid 400 mcg tablet 1 tablet, 1 tablet, oral, Daily, 1 tablet at 12/05/23 0849 ondansetron (ZOFRAN) injection 4 mg, 4 mg, intravenous, Q4H PRN pantoprazole DR (PROTONIX) extended release tablet 40 mg, 40 mg, oral, Daily, 40 mg at 12/05/23 0849 phenoL (CHLORASEPTIC) 1.4 % oral spray 1 spray, 1 spray, mouth/throat, Q4H PRN, 1 spray at 8 piperacillin-tazobactam (ZOSYN) 4.5 gram/120 mL in sodium [...] mL, intra-catheter, PRN, 10 mL at 12/04/23 185 thiamine (VITAMIN B1) tablet 100 mg, 100 mg, oral, Daily, 100 mg at 12/05/23 0848 vancomycin 750 mg/257.5 mL in sodium chloride 0.9% (premix) 750 mg, 15 mg/kg, intravenous, Q12H, 750 mg at 12/06/23 0519 Lab/Radiology/Diagnostic Review: Recent Labs Lab Units 12/05/23212312/05/23 1109 12/04/23 2030 12/04/23175712/04/23 1602 HEMOGLOBIN g/dL 7.8* 7.6* 7.6* 7.3* 9.8* HEMATOCRIT % 26.0* 25.5* 25.3* 24.4* 33.2* WBC K/cumm 12.0* 12.3* 24.2* 23.9* 24.1* PLATELETS K/cumm 446* 463* 483* 477* 760* Recent Labs Lab Units 12/05/23212312/04/23221812/04/23175712/04/23172312/01/23214511/30/23225411/29/23 2051 SODIUM mmol/L 137 137 < > 135 [...] interval not displayed. Recent Labs Lab Units 12/05/23212312/04/23175712/04/23172312/01/23214511/30/23 225 ALBUMIN g/dL 2.4* < > 2.5* < [...] mass is concerning for ovarian malignancy, but hourly sign language interpreter/onc evaluation of adnexal mass gives a low [...] - Colorectal surgery consult: TAC with concurrent hourly sign language interpreter/onc resection of adnexal mass on 12/16 # [...] incidentally on imaging in August. Following with hourly sign language interpreter onc, Dr. Rhodes. 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 - Considering colectomy with CRS so will also consult hourly sign language interpreter/onc for consideration of concurrent cyst removal. # [...] urinary retention Outcome: Progressing * Plan of Care - Guerita Banks RN - 12/05/2023 5:31 PM CDT Problem: Discharge Planning Goal: Understanding discharge needs will improve Outcome: Progressing Flowsheets (Taken 12/05/2023 1730) Understanding of discharge needs will improve: Identify [...] of Use: Abdominal/Pelvic Infection Based on the [facility] approved criteria for respiratory failure (see below), [...] clinical impression in detail Respiratory Failure References [employer] Hospitalist Nov/Dec 2012 Coding Clinics: 3rd Q 1987, p 7 and 2nd Q 1989, p.20 [email or web address].gov/zppoehrr-qor-qtodlinbd/medicare-learning-network-mln/mlnprod ucts/downloads/qtya-pxfsgc-udsxvvo-text-only.pdf From the ICD-10-CM Coding Guidelines, use of terms such as likely, suspected, possible, or probable(associated with a specific diagnosis that is being evaluated, monitored, or treated as if it exists) are acceptable and can be coded in the inpatient setting when documented at the time of discharge. This documentation will become part of the patient's medical record. Sincerely, BONIFACIO Rojo, RN Clinical Garnett Feeder [facility] [email or web address] * Consults, Francisco - Fernando Dooley MD - 12/05/2023 4:10 [...] Recommendations: - f/u infectious/bronch studies - Appreciate CRS/Cemetery Laborer Onc consults. Tentative plan for TAC and [...] private GI pager during weekdays or the [facility] phone during after hours and weekends. Fernando Dooley MD GI Fellow * Medical Student - Amanda Westfall - 12/05/2023 8:02 AM CDT Images from [...] T waves seen immediately following SVT,reassuring against MN. 4hr and 6hr troponins showed plateau. This [...] 477* 760* 478* Recent Labs Lab Units 12/04/23221812/04/23175712/04/23 17212/01/23214511/30/23 2255 11/29/23 2051 11/29/23 0046 SODIUM mmol/L [...] interval not displayed. Recent Labs Lab Units 12/04/23175712/04/23172312/01/23214511/30/23 2255 ALBUMIN g/dL 2.4* 2.5* < > [...] mass is concerning for ovarian malignancy, but hourly sign language interpreter/onc evaluation of adnexal mass gives a low [...] - Colorectal surgery consult: TAC with concurrent hourly sign language interpreter/onc resection of adnexal mass on 12/16 # [...] incidentally on imaging in August. Following with hourly sign language interpreter onc, Dr. Rhodes. 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 - Considering colectomy with CRS so will also consult hourly sign language interpreter/onc for consideration of concurrent cyst removal. # [...] Patient and/or family are agreeable with plan. event services manager will continue to follow and assist with discharge planning as needed. If any further discharge needs arise, please contact the covering child welfare caseworker. Dariana Cramer RN,BSN,CM * Consults, Subsequent - [...] Recommendations: - f/u infectious/bronch studies - Appreciate CRS/Cemetery Laborer Onc consults. Tentative plan for TAC and [...] private GI pager during weekdays or the [facility] phone during after hours and weekends. [...] now. .Vamshi Gonzalez MD, FACP, FACG, AGAF, HERNAN, [facility] certified nursing assistant [facility] [address] [place] [address] Office [phone] * Plan of Care - Christine Avendano [...] monitoring, pain management, BG control, NPO at MA. Summary: Safety measures applied, needs attended, frequent [...] regarding situation - Seen by CRS and Cemetery Laborer Onc. Tentative plan for combined TAC and [...] Recommendations: - f/u infectious/bronch studies - Appreciate CRS/Cemetery Laborer Onc consults. Tentative plan for TAC and adnexal mass resection on 12/16 - abx per primary/ID We will continue to follow-up with you. Thank you for involving us in the care of this patient. If you have any questions, please call the private GI pager during weekdays or the [facility] phone during after hours and weekends. [...] Vamshi Gonzalez MD, FACP, FACG, AGAF, HERNAN, FCCF certified nursing assistant [facility] [address] [place] [address] Office [phone] * Plan of Care - Dariana Cramer RN - 12/03/2023 3:57 PM CDT 12/03/23 2385 Discharge Planning Support System Spouse/Significant Other;Family members (Jean Claude/spouse [phone]) Anticipated discharge level of care Private residence Does the patient need discharge transport arranged? No (family to provide transportation) Post Acute Care Plan Home Care Services N/A OP Services N/A DME N/A Post Acute Care Facility N/A CM Progression of Care Update Per Medical Chart/Rounds/IDR: Patient is not medically ready for discharge ADD: 10-20 Discharge Barriers: No anticipated discharge barrier Education [...] Patient and/or family are agreeable with plan. event services manager will continue to follow and assist with discharge planning as needed. If any further discharge needs arise, please contact the covering child welfare caseworker. Dariana Cramer RN,BSN,CM * Hospital Course - [...] ostomy teaching 12/25: consistent carb diet, dc'd SOFTWARE CONFIGURATION MANAGER pump, po pain meds, holding lovenox ON: [...] will follow up with Dr. Perez postoperatively. LE AND HEEL STIFFENER LE AND HEEL STIFFENER LE AND HEEL STIFFENER LE AND HEEL STIFFENER LE AND HEEL STIFFENER LE AND HEEL STIFFENER * Consults, Subsequent - Marlene Pierre MD [...] - 199 mg/dL POCT glucose Collection Time: 10/16/24 11:28 AM Result Value Ref Range Glucose, [...] bronchoscopy cultures and pathology (called pathology to ramsey specimen) - Follow up pending fungal serologies [...] and I penny examined the patient on 12/03/2023. I agree [...] Diseases Sign Off Recommendations for Patients on [facility] Oral Antibiotics Diagnosis: Spleen and liver abscesses, [...] and adnexal mass. She was admitted to [facility] on 11/24 for further workup and [...] EKG in chart was 454. CRS and EQUIPMENT TECH discussing combo case in the near future. [...] given improvement. Continue antibiotics as described elsewhere. LE AND HEEL STIFFENER LE AND HEEL STIFFENER * Assessment & Plan Note - Cara Guy NP - 12/03/2023 12:45 PM CDT Associated Problem(s): Splenic abscess Near resolution of hepatic and splenic abscesses. No plans for repeat imaging given improvement. Continue antibiotics as described elsewhere. LE AND HEEL STIFFENER * Plan of Care - Vanessa Caicedo RN - 12/03/2023 11:37 AM CDT Goals: Clinical Goals for the Shift: VSS, Blood glucose WNL, Pain management, Maintain safety Summary: patient is still being worked up with pulmonology, ID, and Cemetery Laborer oncology. Patient is oriented x 4 with [...] 100 mg, oral, Daily, 100 mg at 12/03/23917 ramelteon (ROZEREM) tablet 8 mg, 8 mg, oral, Nightly PRN sodium chloride 0.9% flush 0.5-20 mL, 0.5-20 mL, intra-catheter, PRN thiamine (VITAMIN B1) tablet 100 mg, 100 mg, oral, Daily, 100 mg at 12/03/23918 Lab/Radiology/Diagnostic Review: Recent Labs Lab Units 12/03/23 0009 12/01/23214511/30/23225411/29/23205011/29/23 0046 HEMOGLOBIN g/dL 8.3* 8.4* 8.3* 7.5* 8.0* HEMATOCRIT % 28.2* 27.3* 27.5* 24.3* 27.2* WBC K/cumm 12.5* 13.4* 17.2* 14.2* 17.2* PLATELETS K/cumm 481* 519* 382 443* 511* Recent Labs Lab Units 12/03/23 0009 12/01/23214511/30/23225411/29/23205011/29/23 0046 11/28/23 0110 11/26/23 2158 SODIUM mmol/L 134* < > 135 131* [...] not displayed. Recent Labs Lab Units 12/03/23 0009 12/01/23 2146 11/30/23 2255 ALBUMIN g/dL 2.7* < > 2.5* ALK [...] mass is concerning for ovarian malignancy, but hourly sign language interpreter/onc evaluation of adnexal mass gives a low [...] total colectomy (contingent on intraoperative findings) with Cemetery Laborer/Onc cystectomy at end of November to give [...] incidentally on imaging in August. Following with hourly sign language interpreter onc, Dr. Rhodes. 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 - Considering colectomy with CRS so will also consult hourly sign language interpreter/onc for consideration of concurrent cyst removal. # [...] Team: General 4 Contact Information: Please see [facility] Treatment Team listing for up-to-date contact information. Subjective Chief complaint of Spleen and liver abscesses, contained perforation, lung nodules with cavitation Interval History: -Reviewed negative infectious workup and pathology results with patient. -EQUIPMENT TECH/CRS consulted and discussing possible surgical intervention in [...] Max: 99 % Most Recent : Vitals: 12/03/23 0835 BP: 129/60 Pulse: 98 [...] and adnexal mass. She was admitted to [facility] on 11/24 for further workup and [...] and adnexal mass. She was admitted to [facility] on 11/24 for further workup and [...] EKG in chart was 454. CRS and EQUIPMENT TECH discussing combo case in the near future. [...] Iverson. Cara Guy, Team 4 Infectious Diseases LOG SNAKER Please contact the Team 4 ID LOG SNAKER M-F, 7-3; or the Attending at the phone numbers in care team with any questions or concerns. After hours, please contact the ID fellow communications media professor. Cosigned by Laury Iverson MD at 12/03/2023 [...] range bacterial and fungal PCR sent to [facility] Assessment/Plan: This is a 63-year-old woman [...] incidentally on imaging in August. Following with hourly sign language interpreter onc, Dr. Rhodes. 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 - Considering colectomy with CRS so will also consult hourly sign language interpreter/onc for consideration of concurrent cyst removal. # [...] has been on 1400 mg inpatient per continuous loft operator consult. If deficient, consider with continuous loft operator further increasing folate iso likely poor absorption [...] Team: General 4 Contact Information: Please see [facility] Treatment Team listing for up-to-date contact [...] Stop 11/30/23 0838 al & mag hydroxide ykhcvhrsjoa-gwmdqrmbxwyrugc-cpftkftyn-nystatin (MAGIC MOUTHWASH) oral suspension 1-1-1-1 10 mL 10 mL swish & swallow Every 4 hours PRN 11/30/23 0915 11/26/23 0900 metroNIDAZOLE (FLAGYL) tablet 500 mg 500 mg oral 2 times daily 11/25/23211911/26/23 0600 ciprofloxacin (CIPRO) tablet 500 mg 500 mg oral 2 times daily (for quinolones,etc) 11/25/23 2120 Vitals: 24hr Min/Max: Temp Min: 36.8 ??C [...] and adnexal mass. She was admitted to [facility] on 11/24 for further workup and [...] Iverson. Cara Guy, Team 4 Infectious Diseases LOG SNAKER Please contact the Team 4 ID LOG SNAKER M-F, 7-3; or the Attending at the phone numbers in care team with any questions or concerns. After hours, please contact the ID fellow communications media professor. Cosigned by Laury Iverson MD at 12/02/2023 [...] AFB seen, no growth Pending studies include: Hopy-e-oqeudd Histoplasma urine antigen Assessment/Plan: This is a [...] Pain management, Maintain safety Summary: * Consults, Subsequent - Fernando Dooley MD - 12/02/2023 9:40 [...] Labs Lab Units 12/01/23 2146 11/30/23 2255 11/29/232050 HEMOGLOBIN g/dL 8.4* 8.3* 7.5* Impression: 63 [...] +/- sigmoidectomy for complicated CD - Recommend EQUIPMENT TECH consult as well for consideration of resection [...] private GI pager during weekdays or the [facility] phone during after hours and weekends. [...] PRN Meds:. acetaminophen al & mag hydroxide mnqaidugfdj-ohxlfbhwaspfghr-yworncueu-nystatin benzonatate sodium chloride 0.9% dextrose OR dextrose [...] POC 137 70 - 199 mg/dL BLOOD [facility] [place] Collection Time: 12/02/23 9:42 AM Result Value [...] bronchoscopy cultures and pathology (called pathology to ramsey specimen) - Follow up pending fungal serologies [...] reviewed other recent/new notes. Dr. Pierre and Sherita francis examined the patient on 12/02/2023. I agree [...] RN - 12/01/2023 2:31 PM CDT 12/01/23 7820 Discharge Planning Support System Spouse/Significant Other;Family members (Jean Claude/spouse [phone]) Anticipated discharge level of care Private residence Does the patient need discharge transport arranged? No (Jean Claude/spouse [phone]) Post Acute Care Plan Home Care Services [...] Patient and/or family are agreeable with plan. event services manager will continue to follow and assist with discharge planning as needed. If any further discharge needs arise, please contact the covering child welfare caseworker. Dariana CramerRN,BSN,CM * Consults, Subsequent - Fernando [...] 8.3* 7.5* 8.0* Impression: 63 y.o. female H HTN, T2DM, s/p cholecystectomy, a large adnexal [...] private GI pager during weekdays or the [facility] phone during after hours and weekends. Fernando Dooley MD Gastroenterology Fellow * Consults, Subsequent - Laury Iverson MD - 12/01/2023 9:05 AM CDT Infectious Disease Followup Note Contact Information: Please see [facility] Treatment Team listing for up-to-date contact [...] 84.1 \ Lab Results Component Value Date [id number] Nonreactive 11/27/2023 HEPBSAG Nonreactive 10/27/2023 HEPBSAB Nonreactive [...] of your patient. Please chat message in [facility] or call the ID team 4 attending with any questions or concerns at [phone] during daytime hours. If there is an emergency after hours then the ID fellow communications media professor can be reached at [phone]. Supplementary Attestation Medical Decision Making: Today, I [...] incidentally on imaging in August. Following with hourly sign language interpreter onc, Dr. Rhodes. 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 - if surgical intervention for IBD is indicated will c/s hourly sign language interpreter onc # Severe Chronic Malnutrition 65 lb [...] PRN Meds:. acetaminophen al & mag hydroxide enpdwiyflcy-acdnybaagwagvzu-dkkhrtyfs-nystatin benzonatate sodium chloride 0.9% dextrose OR dextrose [...] of peribronchovascular nodules in the left lung)... DEMETRI (ASPEN) MALNUTRITION ASSESSMENT: Date of completion: 11/27/2023 [...] fat ? muscle ? fluid/edema 6: Reduced Diesel Engineer Strength n/a Measurably reduced per device standards [...] of the patient???s medical record. Sincerely, BONIFACIO Rooj, RN Clinical Garnett Feeder [facility] [email or web address] * Plan of Care - Lidia Khan [...] Lab/Radiology/Diagnostic Review: Labs: Recent Labs Lab Units 11/28/23 0110 11/26/238 11/25/23 2252 HEMOGLOBIN g/dL 7.8* 8.4* 8.6* HEMATOCRIT % 25.5* 27.2* 28.1* WBC K/cumm 14.4* 20.6* 16.6* PLATELETS K/cumm 434* 459* 430* Recent Labs Lab Units 11/28/23 0110 11/26/23 2158 11/25/23 2252 SODIUM mmol/L 134* 127* 130* POTASSIUM [...] incidentally on imaging in August. Following with hourly sign language interpreter onc, Dr. Rhodes. 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..] is a female, who was admitted to [facility] on 11/25/2023 for Ulcerative colitis (HCC) [K51.90] Bilateral ovarian cysts [N83.201, N83.202] Malnutrition (CMS/HCC) (HCC) [E46] Physical deconditioning [R53.81]. [place] [facility] [place] [place] [facility] [address] Current phone number is [phone] (home) . SW met with patient and spouse, Jean Claude Russo ([phone]) at bedside. Throughout the assessment, the pt had maintained good eye contact and was forthcoming with information. Pt identified her strong support systems spouse, Jean Claude Russo ([phone]), 2 children twins, a daughter and son and her sister. Pt reported family will assist with her transportation needs. Pt did not identify any concerns with housing, financial strain, or food insecurity. Pt has the insurance [employer] and Medicare A&B. Patient nor spouse expressed [...] order present Social Work to work with [facility] for discharge planning and social concerns as needed. YANIRA Guerrero, FRANKLYN * Plan of Care - Ratna Campos [...] you have any questions, please call the [facility] pager during weekdays or the [facility] phone during after hours and weekends. [place] [...] RN - 11/28/2023 2:33 PM CDT 11/28/23 1432 Discharge Planning Support System Spouse/Significant Other;Family members (Jean Claude/spouse [phone]) Anticipated discharge level of care Private residence Does the patient need discharge transport arranged? No (family to provide transportation) Post Acute Care Plan Home Care Services N/A OP Services N/A DME N/A Post Acute Care Facility N/A CM Progression of Care Update Per Medical Chart/Rounds/IDR: Patient is not medically ready for discharge ADD: 12-02 Discharge Barriers: No anticipated discharge barrier Education [...] Patient and/or family are agreeable with plan. event services manager will continue to follow and assist with discharge planning as needed. If any further discharge needs arise, please contact the covering child welfare caseworker. Dariana Cramer RN,BSN,CM * Plan of Care [...] by Meka Ackerman RN Outcome: Progressing Problem: Skin Integrity Impairment [...] Review: Labs: Recent Labs Lab Units 11/28/2310911/26/23215711/25/23 2252 HEMOGLOBIN g/dL 7.8* 8.4* 8.6* HEMATOCRIT % [...] 1.8 2.0 Recent Labs Lab Units 11/28/23 01111/25/23 2252 APTT sec 30 36 INR 1.62* [...] incidentally on imaging in August. Following with hourly sign language interpreter onc, Dr. Rhodes. 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 - if surgical intervention for IBD is indicated will c/s hourly sign language interpreter onc # Severe Chronic Malnutrition 65 lb [...] * Medical Student - Amanda Westfall - 11/27/2023 8:21 AM CDT Medicine Daily [...] 500 mg, oral, BID, 500 mg at 11/26/232139 ondansetron (ZOFRAN) injection 4 mg, 4 mg, intravenous, Q4H PRN pantoprazole DR (PROTONIX) extended release tablet 40 mg, 40 mg, oral, Daily, 40 mg at 11/26/23 09 polyethylene glycol (MIRALAX) packet 17 g, 17 g, oral, Daily PRN ramelteon (ROZEREM) tablet 8 mg, 8 mg, oral, Nightly PRN Lab/Radiology/Diagnostic Review: Labs: Recent Labs Lab Units 11/26/23215711/25/23 2252 HEMOGLOBIN g/dL 8.4* 8.6* HEMATOCRIT % 27.2* 28.1* WBC K/cumm 20.6* 16.6* PLATELETS K/cumm 459* 430* Recent Labs Lab Units 11/26/23215711/25/232 SODIUM mmol/L 127* 130* POTASSIUM PLASMA mmol/L [...] crypto [place] and consideration of immunomodulatory therapy for IBD. [...] incidentally on imaging in August. Following with hourly sign language interpreter onc, Dr. Rhodes. 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 - if surgical intervention for IBD is indicated will c/s hourly sign language interpreter onc # Protein-calorie malnutrition 65 lb weight [...] Team: General 4 Contact Information: Please see [facility] Treatment Team listing for up-to-date contact [...] Max: 97 % Most Recent : Vitals: 11/27/23 0915 [...] and adnexal mass. She was admitted to [facility] on 11/24 for further workup and [...] being unhoused, living or volunteering in a snf, being incarcerated or living with someone who has been in longterm. She denies international travel or living with someone who has lived overseas. Reports her son brianna deployed before but that he does not [...] Patient reports plan is for bronch today. Residential Sales Representative hold off on AFB sputums for TB r/o and TB PCR at this time as patient does not have the typical risk factors. Reasonable to wait for current results at this time. Recommendations: -Continue ciprofloxacin and metronidazole as ordered -Agree with bronch. Please send fungal, AFB and bacterial cultures -Please obtain an EKG for Qtc monitoring - Obtain ensk-L-xxrcyi and galactomannan -Will follow up on results -Thank you for allowing us to participate in the care of this patient. For questions or concerns, please do not hesitate to reach out. Patient seen and plan formulated with Dr. Iverson. Cara Guy, Team 4 Infectious Diseases LOG SNAKER Please contact the Team 4 ID LOG SNAKER M-F, 7-3; or the Attending at the phone numbers in care team with any questions or concerns. After hours, please contact the ID fellow communications media professor. Cosigned by Laury Iverson MD at 11/27/2023 [...] Cramer RN - 11/26/2023 10:16 AM CDT ROMAIN Initial Assessment Interview Note Information Obtained From: Patient (11/26/23 3018) Admission Source: Non Health Care Facility Impression: Patient is a 63 yo with a history of HTN, T2DM, S/P Cholecystectomy presented with adnexal mass and colitis. Plan Includes: Anticipated discharge home with family for home support and no home care needs Primary Source of Transportation: Does the patient need discharge transport arranged?: No (Jean Claude Chenit/spouse [phone]) (11/26/23956) Health Insurance Coverage: [facility]. Medicare Prescription Coverage: yes Pharmacy: [facility] [address] [address] [address] [facility] [address] Primary Care Provider: Kaushal Heath MD Prior to Admission: Functional Status: Minimal assist with ADLs Primary Caregiver: Self Support System: Spouse/Significant Other, Family members (Jean Claude Russo/spouse [phone]) Home Care Services: No Outpatient Services: No Durable Medical Equipment: None Living Arrangements: Spouse/significant other (Jean Claude Russo/spouse [phone]) Type of Residence: Private residence Steps in [...] Collaboration with Patient, Provider, Direct Care Nurse, Furnace Repairer, and other members of theHealth Care Team to assure needed interventions completed. 2. Return patient to optimal level of self-care post discharge. 3. Processing Tal[employer] And [employer] Supervisor will follow for Discharge Planning - interventions as needed 4. Anticipated level of care at discharge 5. Planned Discharge Disposition Dariana Cramer RN,BSN,CM For emergency needs from 4:31p.m. - 7:59a.m., please call the jersey knitter [phone]. For weekend/holiday needs from 8:00a.m. - 4:30p.m., please call the Weekend Processing Tal[employer] And Borate Supervisor . * Plan of Care - Samia [...] Russo is a 63 yo female with H IBD, ovarian mass, HTN, T2DM, and perforated [...] had an outpatient appointment with Dr Rhodes (hourly sign language interpreter onc) on 10/01 and was directly admitted [...] at OSH in September. Imaging Results: MRI 11.13 1. Evolving changes of sigmoid diverticulitis with [...] incidentally on imaging in August. Following with hourly sign language interpreter onc, Dr. Rhodes. 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 - if surgical intervention for IBD is indicated will c/s hourly sign language interpreter onc # Weight loss - nutrition consult [...] Lab Routine 10:55 PM CDT Thyroid Function [place] [facility] Routine 11/30/2023 10:55 PM CDT Vitamin [...] Colon Microbiology Routine 12/24/2023 3: 00 PM [employer] HEEL STIFFENER Hepatic function panel Lab Timed 8:46 PM [employer] HEEL STIFFENER Scheduled Orders Name Type Priority Associated Diagnoses Order Schedule Cryptococcal Antigen, Serum Blood Microbiology STAT STAT for 1 Occurrences starting 11/26/2023 until 11/26/2023 Osmolality, urine Lab Timed Once fo r 1 Occurrences starting 11/27/2023 until 11/27/2023 Hepatic function panel Lab Routine Once for 1 Occurrences starting 11/30/2023 until 11/30/2023 Thyroid Function [place] [facility] Routine Once for 1 Occurrences starting [...] POCT GLUCOSE DEVICE Routine 12/30/2023 12:34 PM [employer] HEEL STIFFENER POCT GLUCOSE DEVICE Routine 12/30/2023 8 :18 AM [employer] HEEL STIFFENER POCT GLUCOSE DEVICE Routine 12/29/2023 8 :02 PM [employer] HEEL STIFFENER POCT GLUCOSE DEVICE Routine 12/29/2023 5 :35 PM [employer] HEEL STIFFENER POCT GLUCOSE DEVICE Routine 12/29/2023 11:55 AM [employer] HEEL STIFFENER POCT GLUCOSE DEVICE Routine 12/29/2023 7 :57 AM [employer] AND HEEL STIFFENER EGFR Timed 12/28/2023 10:18 PM INSOLE AND HEEL STIFFENER CBC WITHOUT DIFFERENTIAL Timed 12/28/2023 10:18 PM INSOLE AND HEEL STIFFENER BASIC METABOLIC PANEL Timed 12/28/2023 10:18 PM [employer] HEEL STIFFENER POCT GLUCOSE DEVICE Routine 12/28/2023 9 :13 PM IN[employer] AND HEEL STIFFENER POCT GLUCOSE DEVICE Routine 12/28/2023 4 :21 PM [employer] HEEL STIFFENER POCT GLUCOSE DEVICE Routine 12/28/2023 12:39 PM [employer]SO[employer] AND HEEL STIFFENER POCT GLUCOSE DEVICE Routine 12/28/2023 7 :33 AM INSO[employer] AND HEEL STIFFENER POCT GLUCOSE DEVICE Routine 12/27/2023 8 :57 PM INSO[employer] AND HEEL STIFFENER EGFR Routine 12/27/2023 8:56 PM INSOLE AND HEEL STIFFENER CBC WITHOUT DIFFERENTIAL Routine 12/27/2023 8:56 PM [employer]SO[employer] AND HEEL STIFFENER BASIC METABOLIC PANEL Routine 12/27/2023 8:56 PM INSO[employer] AND HEEL STIFFENER POCT GLUCOSE DEVICE Routine 12/27/2023 6 :29 PM [employer] HEEL STIFFENER POCT GLUCOSE DEVICE Routine 12/27/2023 12:36 PM INSOLE AND HEEL ST[employer] CT ABDOMEN PELVIS W CONTRAST ED Urgent/IP Urgent 12/27/2023 11:33 AM INSO[employer] AND HEEL STIFFENER POCT GLUCOSE DEVICE Routine 12/27/2023 7 :54 AM [employer] AND HEEL STIFFENER DIFFERENTIAL AUTO STAT 12/27/2023 3:3 9 AM [employer] AND HEEL STIFFENER CBC WITH AUTO DIFFERENTIAL STAT 12/27/2023 3:39 AM INSO[employer] AND HEEL STIFFENER TRANSFUSE RED BLOOD CELLS Timed 12/27/2023 12:32 AM [employer] HEEL STIFFENER PREPARE RBC Timed 12/26/2023 11:49 PM INSO[employer] AND HEEL STIFFENER EGFR Timed 12/26/2023 10:32 PM INSOLE AND HEEL STIFFENER CBC WITHOUT DIFFERENTIAL Timed 12/26/2023 10:32 PM INSO[employer] AND HEEL STIFFENER BASIC METABOLIC PANEL Timed 12/26/2023 10:32 PM INSO[employer] AND HEEL STIFFENER POCT GLUCOSE DEVICE Routine 12/26/2023 7 :59 PM [employer] AND HEEL STIFFENER POCT GLUCOSE DEVICE Routine 12/26/2023 5 :27 PM [employer] AND HEEL STIFFENER POCT GLUCOSE DEVICE Routine 12/26/2023 3 :49 PM [employer] HEEL STIFFENER POCT GLUCOSE DEVICE Routine 12/26/2023 12:05 PM [employer] AND HEEL STIFFENER POCT GLUCOSE DEVICE Routine 12/26/2023 8 :18 AM INSOLE AND HEEL STIFFENER LACTATE STAT 12/26/2023 2:45 AM INSOLE AND HEEL STIFFENER CBC WITHOUT DIFFERENTIAL STAT 12/26/2023 2:45 AM IN[employer] AND HEEL STIFFENER TRANSFUSE RED BLOOD CELLS Timed 12/25/2023 11:02 PM INSO[employer] AND HEEL STIFFENER PREPARE RBC Timed 12/25/2023 10:25 PM [employer] HEEL ST[employer]ENER EGFR Timed 12/25/2023 8:46 PM [employer]SO[employer] AND HEEL STIFFENER CBC WITHOUT DIFFERENTIAL Timed 12/25/2023 8:46 PM [employer] HEEL ST[employer]ENER HEPATIC FUNCTION PANEL Timed 8:46 PM [employer] HEEL ST[employer]ENER BASIC METABOLIC PANEL Timed 12/25/2023 8:46 PM [employer] HEEL STIFFENER POCT GLUCOSE DEVICE Routine 12/25/2023 8 :39 PM [employer] HEEL STIFFENER POCT GLUCOSE DEVICE Routine 12/25/2023 4 :57 PM IN[employer] ST[employer] CT CHEST W CONTRAST IP Routine 12/25/2023 4 :34 PM [employer]SO[employer] AND HEEL STIFFENER POCT GLUCOSE DEVICE Routine 12/25/2023 2 :12 PM [employer] HEEL STIFFENER POCT GLUCOSE DEVICE Routine 12/25/2023 11:56 AM [employer] HEEL ST[employer]ENER INFECTION PREVENTION ANGIE AURIS PCR, SURVEILLANCE Routine 12/25/2023 10:27 AM INSO[employer] AND HEEL STIFFENER POCT GLUCOSE DEVICE Routine 12/25/2023 8 :45 AM INSO[employer] AND HEEL STIFFENER EGFR Timed 12/24/2023 9:58 PM INSOLE AND HEEL STIFFENER CBC WITHOUT DIFFERENTIAL Timed 12/24/2023 9:58 PM INSO[employer] AND HEEL STIFFENER BASIC METABOLIC PANEL Timed 12/24/2023 9:58 PM INSOLE AND HEEL STIFFENER POCT GLUCOSE DEVICE Routine 12/24/2023 8 :41 PM [employer]SO[employer] AND HEEL STIFFENER POCT GLUCOSE DEVICE Routine 12/24/2023 6 :04 PM INSOLE AND HEEL STIFFENER POC BLOOD GAS AND CHEMISTRIES, ARTERIAL Routine 12/24/2023 4:47 PM INSO[employer] AND HEEL STIFFENER POCT GLUCOSE DEVICE Routine 12/24/2023 4 :07 PM INSO[employer] AND HEEL STIFFENER POC BLOOD GAS AND CHEMISTRIES, ARTERIAL Routine 12/24/2023 3:22 PM INSOLE AND HEEL STIFFENER TISSUE AEROBIC AND ANAEROBIC CULTURE AND GRAM STAIN Routine 12/24/2023 3:00 PM [employer] HEEL ST[employer]ENER MYCOLOGY (FUNGAL) CULTURE AND STAIN Routine 12/24/2023 3:00 PM INSOLE AND HEEL STIFFENER MYCOBACTERIOLOGY AFB CULTURE AND ACID-FAST STAIN Routine 12/24/2023 3:00 PM INSO[employer] AND HEEL STIFFENER POC BLOOD GAS AND CHEMISTRIES, ARTERIAL Routine 12/24/2023 1:47 PM [employer]SOLE [employer] HEEL STIFFENER PLACEMENT PREOPERATIVE STENT - URETERAL 12/24/2023 11:46 AM [employer] HEEL ST[employer]ENER Ulcerative pancolitis with complication (CMS/HCC) (HCC) Case Notes 11/5@0852- Panel being added per Ahmed via phone call (EF) HYSTERECTOMY ABDOMINAL SALPINGO-OOPHORECTOMY 12/24/2023 11:46 AM [employer] HEEL ST[employer]ENER Ulcerative pancolitis with complication (CMS/HCC) (HCC) Case Notes 11/5@0852- Panel being added per Ahmed via phone call (EF) COLOSTOMY 12/24/2023 11:46 AM [employer] HEEL STIFFENER Ulcerative pancolitis with complication (CMS/HCC) (HCC) Case Notes 11/5@0852- Panel being added per Ahmed via phone call (EF) RESECTION LEFT COLON 12/24/2023 11:46 AM [employer] HEEL STIFFENER Ulcerative pancolitis with complication (CMS/HCC) (HCC) Case Notes 11/5@0852- Panel being added per Ahmed via phone call (EF) TYPE AND SCREEN STAT 12/24/2023 11:13 AM INSOLE AND HEEL STIFFENER POC BLOOD GAS AND CHEMISTRIES, VENOUS Routine 12/24/2023 11:09 AM INSO[employer] AND HEEL STIFFENER EGFR Routine 12/22/2023 9:36 PM INSO[employer] AND HEEL STIFFENER DIFFERENTIAL AUTO Routine 12/22/2023 9:3 6 PM INSO[employer] AND HEEL STIFFENER CBC WITH AUTO DIFFERENTIAL Routine 12/22/2023 9:36 PM INSO[employer] AND HEEL STIFFENER PROTIME-INR Routine 12/22/2023 9:36 PM INSOLE AND HEEL STIFFENER TYPE AND SCREEN Timed 12/22/2023 9:36 PM INSOLE AND HEEL STIFFENER MAGNESIUM Routine 12/22/2023 9:36 PM INSO[employer] AND HEEL STIFFENER RENAL FUNCTION PANEL Routine 12/22/2023 9:36 PM INSO[employer] AND HEEL STIFFENER INFECTION PREVENTION ANGIE AURIS PCR, SURVEILLANCE Routine 12/21/2023 9:32 PM INSO[employer] AND HEEL STIFFENER EGFR Timed 12/19/2023 10:29 PM CDT DIFFERENTIAL [...] 12/02/2023 12:07 PM CDT BLOOD MISC TO [place] Routine 12/02/2023 9: 42 AM CDT POCT [...] Results * POCT glucose (12/30/2023 12:34 PM INSOLE AND HEEL STIFFENER) Glucose, POC 182 70 - 199 mg/dL Blood 12/30/2023 12:3 4 PM INSO[employer] AND HEEL STIFFENER 12/30/2023 12:34 PM INSOLE AND HEEL STIFFENER Yo Perez MD LAB POCT ORDERABLES - DEVICE Final Result Performing Organization Address City/[facility] Co de Phone Number [facility] Department [place] [address] * POCT glucose (12/30/2023 8:18 AM INSOLE AND HEEL STIFFENER) Glucose, POC 109 70 - 199 mg/dL Blood 12/30/2023 8:18 AM IN[employer] AND HEEL STIFFENER 12/30/2023 8:18 AM INSO[employer] AND HEEL STIFFENER Yo Perez MD LAB POCT ORDERABLES - DEVICE Final Result Performing Organization Address City/[facility]/ZIP Co de Phone Number [facility] Department [place] [address] * POCT glucose (12/29/2023 8:02 PM INSOLE AND HEEL STIFFENER) Glucose, POC 142 70 - 199 mg/dL Blood 12/29/2023 8:02 PM INSO[employer] AND HEEL STIFFENER 12/29/2023 8:02 PM INSO[employer] AND HEEL STIFFENER Yo Perez MD LAB POCT ORDERABLES - DEVICE Final Result [facility] [employer] [address] * POCT glucose (12/29/2023 5:35 PM INSOLE AND HEEL STIFFENER) Glucose, POC 166 70 - 199 mg/dL Blood 12/29/2023 5:35 PM INSO[employer] AND HEEL STIFFENER 12/29/2023 5:35 PM INSOLE AND HEEL STIFFENER Yo Perez MD LAB POCT ORDERABLES - DEVICE Final Result Performing Organization Address [facility] Co de Phone Number [facility] [place] [address] * POCT glucose (12/29/2023 11:55 AM INSO[employer] AND HEEL STIFFENER) Glucose, POC 130 70 - 199 mg/dL Blood 12/29/2023 11:5 5 AM IN[employer] AND HEEL STIFFENER 12/29/2023 11:55 AM INSO[employer] AND HEEL STIFFENER Yo Perez MD LAB POCT ORDERABLES - DEVICE Final Result Performing Organization Address City/[facility]/ZIP Co de Phone Number [facility] [place] [address] * POCT glucose (12/29/2023 7:57 AM INSOLE AND HEEL STIFFENER) Glucose, POC 122 70 - 199 mg/dL Blood 12/29/2023 7:57 AM INSO[employer] AND HEEL STIFFENER 12/29/2023 7:57 AM INSO[employer] AND HEEL STIFFENER Yo Perez MD LAB POCT ORDERABLES - DEVICE Final Result Performing Organization Address City/[facility]/ZIP Co de Phone Number [facility] Department [place] [address] * eGFR (12/28/2023 10:18 PM INSOLE AND HEEL STIFFENER) eGFR 83 >=60 mL/min/1. 73 m2 Comment: [...] reviewed 2020. Blood 12/28/2023 10:1 8 PM INSOLE AND HEEL STIFFENER 12/28/2023 11:12 PM INSOLE AND HEEL STIFFENER us Yo Perez MD LAB BLOOD ORDERABLES Final R esult [facility] Department [place] [address] * (ABNORMAL) Basic metabolic panel (12/28/2023 10:18 PM INSOLE AND HEEL STIFFENER) Pathologist [facility] [place] Sodium 138 135 - 145 mmol/L Potassium, pl 4.4 3.3 - 4.9 mmol/L [facility] Chloride 104 97 - 110 mmol/L [facility] CO2 26 22 - 32 mmol/L [facility] Anion gap 8 2 - 15 mmol/L [facility] BUN 20 6 - 25 mg/dL [facility] Creatinine 0.79 0.60 - 1.10 mg/dL [facility] Glucose 135 70 - 199 mg/dL [facility] Comment: Interpretive Data Fasting glucose >/= [...] 2022. Calcium 8.1(L) 8.5 - 10.3 mg/dL [facility] Blood 12/28/2023 10:1 8 PM [employer] AND HEEL STIFFENER 12/28/2023 11:12 PM INSOLE AND HEEL STIFFENER us Yo Perez MD LAB BLOOD ORDERABLES Final R esult [facility] Department [place] [address] * (ABNORMAL) CBC without differential (12/28/2023 10:18 PM INSOLE AND HEEL STIFFENER) Pathologist [facility] [place] WBC 10.9(H) 3.8 - 9.9 K/cumm Hgb 9.3(L) 11.9 - 15.5 g/dL [facility] Hct 29.5(L) 35.6 - 45.5 % [facility] Plt 384 150 - 400 K/cumm [facility] MPV 8.9(L) 9.1 - 12.3 fL [facility] RBC 3.42(L) 3.90 - 5.20 M/cumm [facility] MCV 86.3 81.3 - 96.4 fL [facility] MCH 27.2 27.1 - 33.3 pg [facility] MCHC 31.5(L) 32.3 - 35.7 g/dL [facility] RDW CV 17.2(H) 11.1 - 14.9 % [facility] RDW SD 54.6(H) 35.7 - 48.1 fL [facility] NRBC abs 0.00 0.00 - 0.01 K/cumm [facility] Blood 12/28/2023 10:1 8 PM IN[employer] AND HEEL STIFFENER 12/28/2023 11:11 PM INSO[employer] AND HEEL STIFFENER us Yo Perez MD LAB BLOOD ORDERABLES Final R esult Performing Organization Address City/[facility]/ZIP Co de Phone Number [facility] [employer] [place] [address] * POCT glucose (12/28/2023 9:13 PM INSO[employer] AND HEEL STIFFENER) Glucose, POC 160 70 - 199 mg/dL Blood 12/28/2023 9:13 PM INSO[employer] AND HEEL STIFFENER 12/28/2023 9:13 PM INSO[employer] AND HEEL STIFFENER Yo Perez MD LAB POCT ORDERABLES - DEVICE Final Result Performing Organization Address City/[facility] Co de Phone Number [facility] [place] [employer] [place] [address] * POCT glucose (12/28/2023 4:21 PM INSOLE AND HEEL STIFFENER) Glucose, POC 125 70 - 199 mg/dL Blood 12/28/2023 4:21 PM INSO[employer] AND HEEL STIFFENER 12/28/2023 4:21 PM INSO[employer] AND HEEL STIFFENER Yo Perez MD LAB POCT ORDERABLES - DEVICE Final Result Performing Organization Address City/[facility]/ZIP Co de Phone Number [facility] [place] [address] * POCT glucose (12/28/2023 12:39 PM INSOLE AND HEEL STIFFENER) [facility] Glucose, POC 165 70 - 199 mg/dL Blood 12/28/2023 12:3 9 PM INSOLE AND HEEL STIFFENER 12/28/2023 12:39 PM INSOLE AND HEEL STIFFENER Yo Perez MD LAB POCT ORDERABLES - DEVICE Final Result Performing Organization Address [facility] de Phone Number [facility] [employer] [place] [address] * POCT glucose (12/28/2023 7:33 AM INSOLE AND HEEL STIFFENER) [facility] Glucose, POC 101 70 - 199 mg/dL Blood 12/28/2023 7:33 AM INSOLE AND HEEL STIFFENER 12/28/2023 7:33 AM INSO[employer] AND HEEL STIFFENER Yo Perez MD LAB POCT ORDERABLES - DEVICE Final Result Performing Organization Address [facility] Phone Number [facility] [employer] [place] [address] * POCT glucose (12/27/2023 8:57 PM INSOLE AND HEEL STIFFENER) [facility] Glucose, POC 113 70 - 199 mg/dL Blood 12/27/2023 8:57 PM INSOLE AND HEEL STIFFENER 12/27/2023 8:57 PM INSOLE AND HEEL STIFFENER Yo Perez MD LAB POCT ORDERABLES - DEVICE Final Result Performing Organization Address [facility] Phone Number [facility] [employer] [place] [address] * eGFR (12/27/2023 8:56 PM INSOLE AND HEEL STIFFENER) [facility] eGFR 71 >=60 mL/min/1. 73 m2 Comment: [...] last reviewed 2020. Blood 12/27/2023 8:56 PM INSOLE AND HEEL STIFFENER 12/27/2023 9:53 PM INSOLE AND HEEL STIFFENER us Yo Perez MD LAB BLOOD ORDERABLES Final R esult [facility] Department [place] [address] * (ABNORMAL) Basic metabolic panel (12/27/2023 8:56 PM INSOLE AND HEEL STIFFENER) Pathologist [facility] [place] Sodium 137 135 - 145 mmol/L Potassium, pl 4.0 3.3 - 4.9 mmol/L [facility] Chloride 104 97 - 110 mmol/L [facility] CO2 27 22 - 32 mmol/L [facility] Anion gap 6 2 - 15 mmol/L [facility] BUN 22 6 - 25 mg/dL [facility] Creatinine 0.90 0.60 - 1.10 mg/dL [facility] Glucose 98 70 - 199 mg/dL [facility] Comment: Interpretive Data Fasting glucose >/= [...] 2022. Calcium 8.0(L) 8.5 - 10.3 mg/dL [facility] Blood 12/27/2023 8:56 PM INSOLE AND HEEL STIFFENER 12/27/2023 9:53 PM INSOLE AND HEEL STIFFENER us Yo Perez MD LAB BLOOD ORDERABLES Final R esult [facility] Department [place] [address] * (ABNORMAL) CBC without differential (12/27/2023 8:56 PM INSOLE AND HEEL STIFFENER) Pathologist [facility] [place] WBC 10.9(H) 3.8 - 9.9 K/cumm Hgb 8.5(L) 11.9 - 15.5 g/dL [facility] Hct 27.6(L) 35.6 - 45.5 % [facility] Plt 364 150 - 400 K/cumm [facility] MPV 9.2 9.1 - 12.3 fL [facility] RBC 3.15(L) 3.90 - 5.20 M/cumm [facility] MCV 87.6 81.3 - 96.4 fL [facility] MCH 27.0(L) 27.1 - 33.3 pg [facility] MCHC 30.8(L) 32.3 - 35.7 g/dL [facility] RDW CV 17.5(H) 11.1 - 14.9 % [facility] RDW SD 55.9(H) 35.7 - 48.1 fL [facility] NRBC abs 0.00 0.00 - 0.01 K/cumm [facility] Blood 12/27/2023 8:56 PM INSOLE AND HEEL STIFFENER 12/27/2023 9:53 PM INSOLE AND HEEL STIFFENER Yo Perez MD LAB BLOOD ORDERABLES Final R esult Performing Organization Address [facility] de Phone Number [facility] [employer] [place] [address] * POCT glucose (12/27/2023 6:29 PM INSOLE AND HEEL STIFFENER) Glucose, POC 196 70 - 199 mg/dL Blood 12/27/2023 6:29 PM INSOLE AND HEEL STIFFENER 12/27/2023 6:29 PM INSOLE AND HEEL STIFFENER Yo Perez MD LAB POCT ORDERABLES - DEVICE Final Result Performing Organization Address [facility] de Phone Number [facility] [employer] [place] [address] * POCT glucose (12/27/2023 12:36 PM INSOLE AND HEEL STIFFENER) Glucose, POC 164 70 - 199 mg/dL Blood 12/27/2023 12:3 6 PM IN[employer] AND HEEL STIFFENER 12/27/2023 12:36 PM INSOLE AND HEEL STIFFENER Yo Perez MD LAB POCT ORDERABLES - DEVICE Final Result Performing Organization Address [facility] de Phone Number [facility] [employer] [place] [address] * CT Abdomen Pelvis W Contrast (12/27/2023 11:33 AM INSOLE AND HEEL STIFFENER) Anatomical Region Laterality Modality Body N/A Computed Tomogra phy 12/27/2023 12:1 1 PM [employer] AND HEEL STIFFENER Impressions 12/27/2023 12:11 PM [employer] AND HEEL STIFFENER 1. ??Status post left colectomy and hysterectomy [...] Jayro Wheeler M.D. Narrative 12/27/2023 12:11 PM INSO[employer] AND HEEL STIFFENER EXAMINATION: ??Computed tomography of the abdomen and [...] lt * POCT glucose (12/27/2023 7:54 AM INSOLE AND HEEL STIFFENER) [facility] Glucose, POC 115 70 - 199 mg/dL Blood 12/27/2023 7:54 AM INSOLE AND HEEL STIFFENER 12/27/2023 7:54 AM INSOLE AND HEEL STIFFENER Yo Perez MD LAB POCT ORDERABLES - DEVICE Final Result Performing Organization Address City/State/[facility] Co de Phone Number [facility] Department [place] [address] * (ABNORMAL) Differential, auto (12/27/2023 3:39 AM INSOLE AND HEEL STIFFENER) Pathologist [facility] [place] Neutrophil abs 8.3(H) 1.5 - 6.5 K/cumm Imm gran abs 0.1 0.0 - 0.1 K/cumm [facility] Lymphocyte abs 1.3 0.8 - 3.3 K/cumm [facility] Monocyte abs 0.9(H) 0.2 - 0.8 K/cumm [facility] Eosinophil abs 0.5 0.0 - 0.5 K/cumm [facility] Basophil abs 0.0 0.0 - 0.1 K/cumm [facility] Neutrophil pct 74.4 % [facility] Comment: Interpretive Data Percent cell count reference ranges are not reported, since discordance with absolute values may lead to misinterpretation of CBC data. Current Interpretive Data was last revised on 2017. Imm gran pct 0.5 % [facility] Comment: Interpretive Data Percent cell count reference ranges are not reported, since discordance with absolute values may lead to misinterpretation of CBC data. Current Interpretive Data was last revised on 2017. Lymphocyte pct 11.9 % [facility] Comment: Interpretive Data Percent cell count reference ranges are not reported, since discordance with absolute values may lead to misinterpretation of CBC data. Current Interpretive Data was last revised on 2017. Monocyte pct 8.1 % [facility] Comment: Interpretive Data Percent cell count reference ranges are not reported, since discordance with absolute values may lead to misinterpretation of CBC data. Current Interpretive Data was last revised on 2017. Eosinophil pct 4.8 % [facility] Comment: Interpretive Data Percent cell count reference ranges are not reported, since discordance with absolute values may lead to misinterpretation of CBC data. Current Interpretive Data was last revised on 2017. Basophil pct 0.3 % [facility] Comment: Interpretive Data Percent cell count reference ranges are not reported, since discordance with absolute values may lead to misinterpretation of CBC data. Current Interpretive Data was last revised on 2017. Blood 12/27/2023 3:3 9 AM [employer] HEEL STIFFENER 12/27/2023 4:45 AM INSO[employer] AND HEEL STIFFENER us Mario Massey MD LAB BLOOD O RDERABLES Final Result [facility] Department [place] [address] * (ABNORMAL) CBC with auto differential (12/27/2023 3:39 AM INSOLE AND HEEL STIFFENER) WBC 11.2(H) 3.8 - 9.9 K/cumm Hgb 8.5(L) 11.9 - 15.5 g/dL [facility] Hct 26.7(L) 35.6 - 45.5 % [facility] Plt 288 150 - 400 K/cumm [facility] MPV 9.6 9.1 - 12.3 fL [facility] RBC 3.14(L) 3.90 - 5.20 M/cumm [facility] MCV 85.0 81.3 - 96.4 fL [facility] MCH 27.1 27.1 - 33.3 pg [facility] MCHC 31.8(L) 32.3 - 35.7 g/dL [facility] RDW CV 17.1(H) 11.1 - 14.9 % [facility] RDW SD 53.3(H) 35.7 - 48.1 fL [facility] NRBC abs 0.00 0.00 - 0.01 K/cumm [facility] Blood 12/27/2023 3:39 AM INSO[employer] AND HEEL STIFFENER 12/27/2023 4:45 AM INSO[employer] AND HEEL STIFFENER Mario Massey MD LAB BLOOD O RDERABLES Final Result Performing Organization Address City/[facility]/ZIP Co de Phone Number [facility] Department of [employer] [place] [address] * Transfuse RBC (12/27/2023 2:47 AM INSOLE AND HEEL STIFFENER) Blood us Yo Perez MD BLOOD TRANSFUSION ORDERABLES Final Result [facility] Department [place] [employer] [place] [address] * Transfuse RBC: 1 Units (12/27/2023 2:47 AM INSOLE AND HEEL STIFFENER) Blood Yo Perez MD BLOOD TRANSFUSION ORDERABLES Final Result * Prepare RBC: 1 Units (12/26/2023 11:49 PM INSOLE AND HEEL STIFFENER) [facility] Product code [id number] Unit Number [id number] [facility] Product Blood Type OPOS [facility] Dispense Status PRESUMED TRANSFUSED [facility] Blood 12/26/2023 11:4 9 PM [employer] HEEL STIFFENER 12/26/2023 11:49 PM INSOLE AND HEEL STIFFENER Narrative [facility] - 12/27/2023 8:00 AM INSOLE AND HEEL STIFFENER Are special requirements needed? (All products are leukoreduced and CMV- safe)- >No Date required:-20231226 LRRBC # of [id number] Reasons:-Hgb <7 g/dL} us Yo Perez MD BLOOD BANK PRODUCT ORDERABLE S Final Result [facility] Department [place] [address] * (ABNORMAL) eGFR (12/26/2023 10:32 PM INSOLE AND HEEL STIFFENER) [facility] eGFR 59(L) >=60 mL/min/1. 73 m2 Comment: [...] reviewed 2020. Blood 12/26/2023 10:3 2 PM [employer] AND HEEL STIFFENER 12/26/2023 11:21 PM INSOLE AND HEEL STIFFENER us Bobby Tyler NP LAB BLOOD ORDERABLES Final Res ult [facility] Department [place] [address] * (ABNORMAL) Basic metabolic panel (12/26/2023 10:32 PM INSOLE AND HEEL STIFFENER) Pathologist [facility] [place] Sodium 137 135 - 145 mmol/L Potassium, pl 3.9 3.3 - 4.9 mmol/L [facility] Chloride 103 97 - 110 mmol/L [facility] CO2 26 22 - 32 mmol/L [facility] Anion gap 8 2 - 15 mmol/L [facility] BUN 21 6 - 25 mg/dL [facility] Creatinine 1.05 0.60 - 1.10 mg/dL [facility] Glucose 121 70 - 199 mg/dL [facility] Comment: Interpretive Data Fasting glucose >/= [...] 2022. Calcium 7.7(L) 8.5 - 10.3 mg/dL [facility] Blood 12/26/2023 10:3 2 PM [employer] HEEL STIFFENER 12/26/2023 11:21 PM INSOLE AND HEEL STIFFENER Bobby Tyler LOG SNAKER LAB BLOOD ORDERABLES Final Res ult [facility] Department [place] [address] * (ABNORMAL) CBC without differential (12/26/2023 10:32 PM INSOLE AND HEEL STIFFENER) Pathologist [facility] [place] WBC 10.1(H) 3.8 - 9.9 K/cumm Hgb 6.2(C) 11.9 - 15.5 g/dL [facility] Comment:Critical result call ed to and read back by ALISON DAWSON RN on 12 26 2023 at 2335 to [place]. Hct 20.5(L) 35.6 - 45.5 % [facility] Plt 323 150 - 400 K/cumm [facility] MPV 9.4 9.1 - 12.3 fL [facility] RBC 2.33(L) 3.90 - 5.20 M/cumm [facility] MCV 88.0 81.3 - 96.4 fL [facility] MCH 26.6(L) 27.1 - 33.3 pg [facility] MCHC 30.2(L) 32.3 - 35.7 g/dL [facility] RDW CV 17.2(H) 11.1 - 14.9 % [facility] RDW SD 55.1(H) 35.7 - 48.1 fL [facility] NRBC abs 0.00 0.00 - 0.01 K/cumm [facility] Blood 12/26/2023 10:3 2 PM [employer] HEEL STIFFENER 12/26/2023 11:21 PM INSOLE AND HEEL STIFFENER Bobby Tyler LOG SNAKER LAB BLOOD ORDERABLES Final Res ult [facility] Department [place] [address] * POCT glucose (12/26/2023 7:59 PM INSO[employer] AND HEEL STIFFENER) Glucose, POC 151 70 - 199 mg/dL Blood 12/26/2023 7:59 PM [employer] AND HEEL STIFFENER 12/26/2023 7:59 PM INSOLE AND HEEL STIFFENER us Yo Perez MD LAB POCT ORDERABLES - DEVICE Final Result Performing Organization Address [facility] de Phone Number [facility] [place] [address] * (ABNORMAL) POCT glucose (12/26/2023 5:27 PM INSOLE AND HEEL STIFFENER) Glucose, POC 213(H) 70 - 199 mg/dL Blood 12/26/2023 5:27 PM [employer] AND HEEL STIFFENER 12/26/2023 5:27 PM INSOLE AND HEEL STIFFENER Yo Perez MD LAB POCT ORDERABLES - DEVICE Final Result Performing Organization Address [facility] de Phone Number [facility] [place] [address] * (ABNORMAL) POCT glucose (12/26/2023 3:49 PM INSOLE AND HEEL STIFFENER) Glucose, POC 208(H) 70 - 199 mg/dL Blood 12/26/2023 3:49 PM INSOLE AND HEEL STIFFENER 12/26/2023 3:49 PM INSOLE AND HEEL STIFFENER Yo Perez MD LAB POCT ORDERABLES - DEVICE Final Result Performing Organization Address [facility] de Phone Number [facility] [employer] [address] * POCT glucose (12/26/2023 12:05 PM INSOLE AND HEEL STIFFENER) Glucose, POC 158 70 - 199 mg/dL Blood 12/26/2023 12:0 5 PM IN[employer] AND HEEL STIFFENER 12/26/2023 12:05 PM INSOLE AND HEEL STIFFENER Yo Perez MD LAB POCT ORDERABLES - DEVICE Final Result Performing Organization Address [facility]/ZIP Co de Phone Number [facility] [employer] [place] [address] * POCT glucose (12/26/2023 8:18 AM INSOLE AND HEEL STIFFENER) [facility] Glucose, POC 125 70 - 199 mg/dL Blood 12/26/2023 8:18 AM INSOLE AND HEEL STIFFENER 12/26/2023 8:18 AM INSOLE AND HEEL STIFFENER Yo Perez MD LAB POCT ORDERABLES - DEVICE Final Result Performing Organization Address [facility] de Phone Number [facility] [employer] [place] [address] * (ABNORMAL) Lactate (12/26/2023 2:45 AM INSOLE AND HEEL STIFFENER) [facility] Lactate 2.2(H) 0.7 - 2.0 mmol/L Blood 12/26/2023 2:45 AM [employer] AND HEEL STIFFENER 12/26/2023 3:17 AM INSOLE AND HEEL STIFFENER Narrative [facility] - 12/26/2023 4:18 AM INSOLE AND HEEL STIFFENER To be drawn after prbc administration Yo Perez MD LAB BLOOD ORDERABLES Final R esult Performing Organization Address [facility] Co de Phone Number [facility] [place] [address] * (ABNORMAL) CBC without differential (12/26/2023 2:45 AM INSOLE AND HEEL STIFFENER) [facility] WBC 13.4(H) 3.8 - 9.9 K/cumm Hgb 7.4(L) 11.9 - 15.5 g/dL [facility] Hct 24.2(L) 35.6 - 45.5 % [facility] Plt 285 150 - 400 K/cumm [facility] MPV 9.7 9.1 - 12.3 fL [facility] RBC 2.77(L) 3.90 - 5.20 M/cumm [facility] MCV 87.4 81.3 - 96.4 fL [facility] MCH 26.7(L) 27.1 - 33.3 pg [facility] MCHC 30.6(L) 32.3 - 35.7 g/dL [facility] RDW CV 17.2(H) 11.1 - 14.9 % [facility] RDW SD 55.9(H) 35.7 - 48.1 fL [facility] NRBC abs 0.00 0.00 - 0.01 K/cumm [facility] Blood 12/26/2023 2:45 AM IN[employer]LE AND HEEL STIFFENER 12/26/2023 3:17 AM INSOLE AND HEEL STIFFENER Narrative [facility] - 12/26/2023 4:08 AM INSO[employer] AND HEEL STIFFENER 1 hour after transfusion of red blood cells is complete us Yo Perez MD LAB BLOOD ORDERABLES Final R esult Performing Organization Address City/[facility]/ZIP Co de Phone Number [facility] Department [place] [address] * Transfuse RBC (12/26/2023 12:57 AM INSOLE AND HEEL STIFFENER) Blood us Yo Perez MD BLOOD TRANSFUSION ORDERABLES Final Result [facility] [employer] [place] [address] * Transfuse RBC: 1 Units (12/26/2023 12:57 AM INSOLE AND HEEL STIFFENER) Blood us Yo Perez MD BLOOD TRANSFUSION ORDERABLES Final Result * Prepare RBC: 1 Units (12/25/2023 10:25 PM INSOLE AND HEEL STIFFENER) Product code [id number] Unit Number [id number] [facility] Product Blood Type OPOS [facility] Dispense Status PRESUMED TRANSFUSED [facility] Blood 12/25/2023 10:2 5 PM [employer] HEEL STIFFENER 12/25/2023 10:29 PM INSOLE AND HEEL STIFFENER Narrative [facility] - 12/26/2023 8:00 AM INSOLE AND HEEL STIFFENER Are special requirements needed? (All products are leukoreduced and CMV- safe)- >No Date required:-20231225 [id number] Reasons:-Hgb <7 g/dL} Yo Perez MD BLOOD BANK PRODUCT ORDERABLE S Final Result Performing Organization Address [facility] de Phone Number [facility] Department [place] [address] * (ABNORMAL) Hepatic function panel (12/25/2023 8:46 PM INSOLE AND HEEL STIFFENER) [facility] Bilirubin, total <0.2 0.1 - 1.2 mg/dL Bilirubin, direct <0.2 0.1 - 0.3 mg/dL [facility] Protein, pl 5.2(L) 6.5 - 8.5 g/dL [facility] Albumin 2.1(L) 3.5 - 5.0 g/dL [facility] Alk phos 67 40 - 130 Units/L [facility] ALT 9 7 - 45 Units/L [facility] AST 17 10 - 45 Units/L [facility] Blood 12/25/2023 8:46 PM INSO[employer] AND HEEL STIFFENER 12/25/2023 10:01 PM INSOLE AND HEEL STIFFENER Yo Perez MD LAB BLOOD ORDERABLES Final R esult Performing Organization Address [facility] de Phone Number [facility] Department [place] [address] * (ABNORMAL) eGFR (12/25/2023 8:46 PM INSOLE AND HEEL STIFFENER) [facility] eGFR 58(L) >=60 mL/min/1. 73 m2 Comment: [...] last reviewed 2020. Blood 12/25/2023 8:46 PM INSOLE AND HEEL STIFFENER 12/25/2023 10:01 PM INSOLE AND HEEL STIFFENER us Parmjit Meehan MD LAB BLOOD ORDERABLES Final Resul t [facility] Department [place] [address] * (ABNORMAL) Basic metabolic panel (12/25/2023 8:46 PM INSOLE AND HEEL STIFFENER) Sodium 133(L) 135 - 145 mmol/L Potassium, pl 3.9 3.3 - 4.9 mmol/L [facility] Chloride 99 97 - 110 mmol/L [facility] CO2 24 22 - 32 mmol/L [facility] Anion gap 10 2 - 15 mmol/L [facility] BUN 20 6 - 25 mg/dL [facility] Creatinine 1.07 0.60 - 1.10 mg/dL [facility] Glucose 171 70 - 199 mg/dL [facility] Comment: Interpretive Data Fasting glucose >/= [...] 2022. Calcium 7.8(L) 8.5 - 10.3 mg/dL [facility] Blood 12/25/2023 8:46 PM [employer] AND HEEL STIFFENER 12/25/2023 10:01 PM INSOLE AND HEEL STIFFENER Narrative [facility] - 12/25/2023 11:46 PM INSOLE AND HEEL STIFFENER Obtain POD 1 at 2200. us Parmjit Meehan MD LAB BLOOD ORDERABLES Final Resul t [facility] Department [place] [address] * (ABNORMAL) CBC without differential (12/25/2023 8:46 PM INSOLE AND HEEL STIFFENER) WBC 11.1(H) 3.8 - 9.9 K/cumm Hgb 6.4(C) 11.9 - 15.5 g/dL [facility] Comment:Critical result call ed to and read back by KATY GONSALEZ RN on 12 25 2023 at 2221 to Queta Garcia. Hct 21.2(L) 35.6 - 45.5 % [facility] Plt 314 150 - 400 K/cumm [facility] MPV 9.5 9.1 - 12.3 fL [facility] RBC 2.43(L) 3.90 - 5.20 M/cumm [facility] MCV 87.2 81.3 - 96.4 fL [facility] MCH 26.3(L) 27.1 - 33.3 pg [facility] MCHC 30.2(L) 32.3 - 35.7 g/dL [facility] RDW CV 17.6(H) 11.1 - 14.9 % [facility] RDW SD 56.3(H) 35.7 - 48.1 fL [facility] NRBC abs 0.00 0.00 - 0.01 K/cumm [facility] Blood 12/25/2023 8:46 PM INSO[employer] AND HEEL STIFFENER 12/25/2023 10:01 PM INSOLE AND HEEL STIFFENER Narrative [facility] - 12/25/2023 10:22 PM INSOLE AND HEEL STIFFENER Obtain POD 1 at 2200. Parmjit Meehan MD LAB BLOOD ORDERABLES Final Resul t Performing Organization Address City/[facility] Co de Phone Number [facility] [employer] [place] [address] * POCT glucose (12/25/2023 8:39 PM INSOLE AND HEEL STIFFENER) Glucose, POC 193 70 - 199 mg/dL Blood 12/25/2023 8:39 PM INSOLE AND HEEL STIFFENER 12/25/2023 8:39 PM INSOLE AND HEEL STIFFENER us Yo Perez MD LAB POCT ORDERABLES - DEVICE Final Result Performing Organization Address [facility] Co de Phone Number [facility] Department of [employer] [place] [address] * POCT glucose (12/25/2023 4:57 PM INSOLE AND HEEL STIFFENER) Glucose, POC 194 70 - 199 mg/dL Blood 12/25/2023 4:57 PM INSOLE AND HEEL STIFFENER 12/25/2023 4:57 PM INSOLE AND HEEL STIFFENER Yo Perez MD LAB POCT ORDERABLES - DEVICE Final Result Performing Organization Address [facility] Co de Phone Number [facility] [employer] [place] [address] * CT Chest W Contrast (12/25/2023 4:34 PM INSOLE AND HEEL STIFFENER) Anatomical Region Laterality Modality Body N/A Computed Tomogra phy 12/25/2023 5:14 PM INSOLE AND HEEL STIFFENER Impressions 12/25/2023 5:15 PM INSOLE AND HEEL STIFFENER Interval resolution of left upper and lower lobe cavitary nodular consolidations with residual atelectasis. ??Small bilateral pleural effusions. Dictated by: Katy Coyne MD The radiology attending physician has personally reviewed this study, and had reviewed and/or edited this written report and agrees with it. Electronically signed by: Brad Greene M.D. Narrative 12/25/2023 5:15 PM INSOLE AND HEEL STIFFENER EXAMINATION: ??Computed tomography of the chest and [...] lt * POCT glucose (12/25/2023 2:12 PM INSOLE AND HEEL STIFFENER) Glucose, POC 159 70 - 199 mg/dL Blood 12/25/2023 2:12 PM INSOLE AND HEEL STIFFENER 12/25/2023 2:12 PM INSOLE AND HEEL STIFFENER Yo Perez MD LAB POCT ORDERABLES - DEVICE Final Result Performing Organization Address [facility] Co de Phone Number [facility] Department of [employer] [place] [address] * POCT glucose (12/25/2023 11:56 AM INSOLE AND HEEL STIFFENER) Glucose, POC 191 70 - 199 mg/dL Blood 12/25/2023 11:5 6 AM INSOLE AND HEEL STIFFENER 12/25/2023 11:56 AM INSOLE AND HEEL STIFFENER Yo Perez MD LAB POCT ORDERABLES - DEVICE Final Result Performing Organization Address [facility] Co de Phone Number [facility] Department [place] [employer] [place] [address] * Infection Prevention Angie auris PCR, surveillance Axilla/Groin (12/25/2023 10:27 AM INSOLE AND HEEL STIFFENER) [facility] Angie auris DNA Not Detected Not Detected [facility] Comment: Interpretive Data Testing performed by [facility] Molecular Infectious Disease Laboratory using the [employer]ia[employer] MDX Angie auris assay. ??This assay detects DNA from Angie auris using Real-Time PCR. ??This assay is laboratory developed and is not cleared by the [place] Food and Drug Administration. ??The performance characteristics have been verified by the [facility] Infectious Disease [facility]. Interpretive data was last reviewed on 06/11/2023 Axilla/Groin 12/25/2023 10:2 7 AM INSOLE AND HEEL STIFFENER 12/25/2023 10:47 AM INSOLE AND HEEL STIFFENER Familia So MD LAB MICROBIOLOGY - GENERAL OR DERABLES Final Result [facility] Department [place] [address] [facility] * POCT glucose (12/25/2023 8:45 AM INSOLE AND HEEL STIFFENER) [facility] Glucose, POC 134 70 - 199 mg/dL Blood 12/25/2023 8:45 AM INSOLE AND HEEL STIFFENER 12/25/2023 8:45 AM INSOLE AND HEEL STIFFENER Yo Perez MD LAB POCT ORDERABLES - DEVICE Final Result Performing Organization Address City/[facility] Co de Phone Number [facility] Department [place] [address] * eGFR (12/24/2023 9:58 PM INSOLE AND HEEL STIFFENER) [facility] eGFR 75 >=60 mL/min/1. 73 m2 Comment: [...] last reviewed 2020. Blood 12/24/2023 9:58 PM INSOLE AND HEEL STIFFENER 12/24/2023 11:10 PM INSOLE AND HEEL STIFFENER us Parmjit Meehan MD LAB BLOOD ORDERABLES Final Resul t [facility] Department [place] [address] * Basic metabolic panel (12/24/2023 9:58 PM INSOLE AND HEEL STIFFENER) Sodium 138 135 - 145 mmol/L Potassium, pl 4.1 3.3 - 4.9 mmol/L [facility] Chloride 101 97 - 110 mmol/L [facility] CO2 26 22 - 32 mmol/L [facility] Anion gap 11 2 - 15 mmol/L [facility] BUN 16 6 - 25 mg/dL [facility] Creatinine 0.86 0.60 - 1.10 mg/dL [facility] Glucose 180 70 - 199 mg/dL [facility] Comment: Interpretive Data Fasting glucose >/= [...] 2022. Calcium 8.7 8.5 - 10.3 mg/dL [facility] Blood 12/24/2023 9:58 PM INSOLE AND HEEL STIFFENER 12/24/2023 11:10 PM INSOLE AND HEEL STIFFENER Narrative [facility] - 12/24/2023 11:38 PM INSOLE AND HEEL STIFFENER Obtain POD 0 at 2200. us Parmjit Meehan MD LAB BLOOD ORDERABLES Final Resul t [facility] Department [place] [address] * (ABNORMAL) CBC without differential (12/24/2023 9:58 PM INSOLE AND HEEL STIFFENER) WBC 17.3(H) 3.8 - 9.9 K/cumm Hgb 8.3(L) 11.9 - 15.5 g/dL [facility] Hct 27.3(L) 35.6 - 45.5 % [facility] Plt 336 150 - 400 K/cumm [facility] MPV 10.2 9.1 - 12.3 fL [facility] RBC 3.17(L) 3.90 - 5.20 M/cumm [facility] MCV 86.1 81.3 - 96.4 fL [facility] MCH 26.2(L) 27.1 - 33.3 pg [facility] MCHC 30.4(L) 32.3 - 35.7 g/dL [facility] RDW CV 17.8(H) 11.1 - 14.9 % [facility] RDW SD 56.6(H) 35.7 - 48.1 fL [facility] NRBC abs 0.00 0.00 - 0.01 K/cumm [facility] Blood 12/24/2023 9:58 PM INSOLE AND HEEL STIFFENER 12/24/2023 11:09 PM INSOLE AND HEEL STIFFENER Narrative [facility] - 12/24/2023 11:18 PM INSOLE AND HEEL STIFFENER Obtain POD 0 at 2200. Parmjit Meehan MD LAB BLOOD ORDERABLES Final Resul t Performing Organization Address [facility] de Phone Number [facility] [place] [address] * (ABNORMAL) POCT glucose (12/24/2023 8:41 PM INSOLE AND HEEL STIFFENER) Glucose, POC 201(H) 70 - 199 mg/dL Comment:Glu2: RN/MD Notified Glucose comment 1 Glu2: RN/MD Notified [facility] Blood 12/24/2023 8:41 PM IN[employer] AND HEEL STIFFENER 12/24/2023 8:41 PM INSO[employer] AND HEEL STIFFENER Yo Perez MD LAB POCT ORDERABLES - DEVICE Final Result Performing Organization Address [facility] de Phone Number [facility] [place] [address] * POCT glucose (12/24/2023 6:04 PM INSOLE AND HEEL STIFFENER) [facility] Glucose, POC 189 70 - 199 mg/dL Blood 12/24/2023 6:04 PM INSOLE AND HEEL STIFFENER 12/24/2023 6:04 PM INSOLE AND HEEL STIFFENER Result [facility] Parmjit Meehan MD LAB POCT ORDERABLES - DEVICE Fin al Result Performing Organization Address [facility] de Phone Number [facility] [place] [address] * (ABNORMAL) POC Blood Gas and Chemistries, Arterial - (12/24/2023 4:47 PM INSOLE AND HEEL STIFFENER) pH, Art POC 7.40 7.35 - 7.45 pCO2, Art POC 38 35 - 45 mmHg [facility] pO2, Art POC 79(L) 83 - 108 mmHg [facility] Na, POC 134(L) 135 - 145 mmol/L [facility] K POC 3.4 3.3 - 4.9 mmol/L [facility] Comment: Interpretive Data Not all point of care methods assess for hemolysis. Confirm with instrument and retest K+ if not consistent with clinical signs and symptoms. Current Interpretive Data was last revised on 2023. Cl, POC 104 97 - 110 mmol/L [facility] Ionized Ca, POC 5.03 4.50 - 5.10 mg/dL [facility] Glucose, POC 180 70 - 199 mg/dL [facility] Lactate, POC 1.2 0.7 - 2.2 mmol/L [facility] SO2 (donna) arterial 96(H) 90 - 95 % [facility] Base excess, POC -1.1 mmol/L [facility] HCO3, Art POC 24 20 - 30 mmol/L [facility] Hct, POC 27.0(L) 36.3 - 45.3 % [facility] Total Hb, POC 9.0(L) 11.9 - 15.5 g/dL [facility] Blood 12/24/2023 4:47 PM [employer] HEEL STIFFENER 12/24/2023 4:47 PM INSO[employer] AND HEEL STIFFENER us Yo Perez MD LAB POCT ORDERABLES - DEVICE Final Result Performing Organization Address [facility] Co de Phone Number [facility] Department [place] [address] * POCT glucose (12/24/2023 4:07 PM INSOLE AND HEEL STIFFENER) [facility] Glucose, POC 124 70 - 199 mg/dL Blood 12/24/2023 4:07 PM [employer] AND HEEL STIFFENER 12/24/2023 4:07 PM [employer] HEEL STIFFENER Parmjit Meehan MD LAB POCT ORDERABLES - DEVICE Fin al Result Performing Organization Address [facility] Co de Phone Number [facility] Department [place] [address] * (ABNORMAL) POC Blood Gas and Chemistries, Arterial - (12/24/2023 3:22 PM INSO[employer] AND HEEL STIFFENER) pH, Art POC 7.41 7.35 - 7.45 pCO2, Art POC 39 35 - 45 mmHg [facility] pO2, Art POC 191(H) 83 - 108 mmHg [facility] Na, POC 134(L) 135 - 145 mmol/L [facility] K POC 3.1(L) 3.3 - 4.9 mmol/L [facility] Comment: Interpretive Data Not all point of care methods assess for hemolysis. Confirm with instrument and retest K+ if not consistent with clinical signs and symptoms. Current Interpretive Data was last revised on 2023. Cl, POC 103 97 - 110 mmol/L [facility] Ionized Ca, POC 5.36(H) 4.50 - 5.10 mg/dL [facility] Glucose, POC 161 70 - 199 mg/dL [facility] Lactate, POC 1.2 0.7 - 2.2 mmol/L [facility] SO2 (donna) arterial 98(H) 90 - 95 % [facility] Base excess, POC 0.1 mmol/L [facility] HCO3, Art POC 25 20 - 30 mmol/L [facility] Hct, POC 25.0(L) 36.3 - 45.3 % [facility] Total Hb, POC 8.2(L) 11.9 - 15.5 g/dL [facility] Blood 12/24/2023 3:22 PM [employer] HEEL STIFFENER 12/24/2023 3:22 PM [employer] AND HEEL STIFFENER us Parmjit Meehan MD LAB POCT ORDERABLES - DEVICE Fin al Result [facility] Department [place] [address] * Mycology (fungal) culture and stain Tissue Colon (12/24/2023 3:00 PM [employer] HEEL STIFFENER) Direct Specimen Exam Stain: No Fungal elements seen. Report Final Report: No growth of fungus [facility] Tissue (Colon) 12/24/2023 3: 00 PM [employer] HEEL STIFFENER 12/24/2023 4:57 PM [employer] AND HEEL STIFFENER Narrative [facility] - 01/21/2024 7:59 AM INSOLE AND HEEL STIFFENER Left colon Testing performed by [facility] Microbiology Laboratory ([phone]). us Yo Perez MD LAB MICROBIOLOGY - GENERAL O RDERABLES Final Result [facility] Department [place] [address] * (ABNORMAL) Tissue aerobic and anaerobic culture and gram stain Tissue Colon (12/24/2023 3:00 PM [employer] AND HEEL STIFFENER) Direct Specimen Exam Stain: Few polymorphonuclear leukocytes [...] contact infectious diseases. Few Mixed microorganisms. (.) [facility] Organism ENTEROCOCCUS FAECIUM [facility] Organism KLEBSIELLA PNEUMONIAE [facility] Organism MIXED MICROORGANISMS. [facility] Tissue (Colon) 12/24/2023 3: 00 PM [employer] HEEL STIFFENER 12/24/2023 4:56 PM [employer] AND HEEL STIFFENER Narrative [facility] - 01/05/2024 3:05 PM [employer] AND HEEL STIFFENER Left colon Testing performed by [facility] Laboratory ([phone]) Specimens submitted from normally sterile body sites [...] INTERPRETATION Resistant Klebsiella pneumoniae Doxycycline INTERPRETATION Susceptible us Yo Perez MD LAB MICROBIOLOGY - GENERAL O RDERABLES Final Result [facility] Department [place] [address] * (ABNORMAL) POC Blood Gas and Chemistries, Arterial - (12/24/2023 1:47 PM [employer]) pH, Art POC 7.44 7.35 - 7.45 pCO2, Art POC 40 35 - 45 mmHg [facility] pO2, Art POC 156(H) 83 - 108 mmHg [facility] Na, POC 134(L) 135 - 145 mmol/L [facility] K POC 3.5 3.3 - 4.9 mmol/L [facility] Comment: Interpretive Data Not all point of care methods assess for hemolysis. Confirm with instrument and retest K+ if not consistent with clinical signs and symptoms. Current Interpretive Data was last revised on 2023. Cl, POC 101 97 - 110 mmol/L [facility] Ionized Ca, POC 4.75 4.50 - 5.10 mg/dL [facility] Glucose, POC 142 70 - 199 mg/dL [facility] Lactate, POC 0.9 0.7 - 2.2 mmol/L [facility] SO2 (donna) arterial 99(H) 90 - 95 % [facility] Base excess, POC 2.8 mmol/L [facility] HCO3, Art POC 27 20 - 30 mmol/L [facility] Hct, POC 28.0(L) 36.3 - 45.3 % [facility] Total Hb, POC 9.3(L) 11.9 - 15.5 g/dL [facility] Blood 12/24/2023 1:47 PM [employer] 12/24/2023 1:47 PM [employer] Parmjit Meehan MD LAB POCT ORDERABLES - DEVICE Fin al Result Performing Organization Address City/[facility]/ZIP Co de Phone Number [facility] Department [place] [address] * Type and screen (12/24/2023 11:13 AM [employer]) Pathologist [facility] [place] ABO Rh O Positive Maira, indirect Negative [facility] Blood 12/24/2023 11:1 3 AM [employer] 12/24/2023 11:21 AM [employer] Narrative [facility] - 12/24/2023 12:48 PM [employer] Has the patient had Daratumumab or Isatuximab in the past 6 months?->Unknown Chris Ricci NP LAB BLOOD BANK TEST ORDERA BLES Final Result Performing Organization Address City/[facility] Co de Phone Number [facility] Department [place] [address] * (ABNORMAL) POC Blood Gas and Chemistries, Venous - (12/24/2023 11:09 AM [employer]) pH, Geovani POC 7.48(H) 7.32 - 7.43 pCO2, geovani POC 41 40 - 50 mmHg [facility] pO2, geovani POC 48 mmHg [facility] Na, POC 136 135 - 145 mmol/L [facility] K POC 3.4 3.3 - 4.9 mmol/L [facility] Comment: Interpretive Data Not all point of care methods assess for hemolysis. Confirm with instrument and retest K+ if not consistent with clinical signs and symptoms. Current Interpretive Data was last revised on 2023. Cl, POC 101 97 - 110 mmol/L [facility] Ionized Ca, POC 4.66 4.50 - 5.10 mg/dL [facility] Glucose, POC 113 70 - 199 mg/dL [facility] Lactate, POC 0.9 0.7 - 2.2 mmol/L [facility] O2 Sat, Geovani POC (Donna) 76 % [facility] Base excess, POC 6.4 mmol/L [facility] HCO3, Geovani POC 30 20 - 30 mmol/L [facility] Hct, POC 26.0(L) 36.3 - 45.3 % [facility] Total Hb, POC 8.8(L) 11.9 - 15.5 g/dL [facility] Blood 12/24/2023 11:0 9 AM [employer] 12/24/2023 11:09 AM [employer] us Parmjit Meehan MD LAB POCT ORDERABLES - DEVICE Fin al Result Performing Organization Address City/State/[facility] Co de Phone Number [facility] Department [place] [address] * eGFR (12/22/2023 9:36 PM [employer]) eGFR 84 >=60 mL/min/1. 73 m2 Comment: [...] Inclusion of Race in Diagnosing Kidney Disease, MELANIE 2020). The CKD-EPI equation should not be used for patients with unstable renal function and has not been validated in children and those over 70. Current interpretive data was last reviewed 2020. Blood 12/22/2023 9:36 PM [employer] 12/22/2023 9:52 PM [employer]ENER us Parmjit Meehan MD LAB BLOOD ORDERABLES Final Resul t [facility] Department [place] [address] * (ABNORMAL) Differential, auto (12/22/2023 9:36 PM [employer]) Neutrophil abs 9.3(H) 1.5 - 6.5 K/cumm Imm gran abs 0.1 0.0 - 0.1 K/cumm [facility] Lymphocyte abs 2.2 0.8 - 3.3 K/[facility] Monocyte abs 1.3(H) 0.2 - 0.8 K/cumm [facility] Eosinophil abs 0.2 0.0 - 0.5 K/cumm [facility] Basophil abs 0.1 0.0 - 0.1 K/cumm [facility] Neutrophil pct 71.3 % [facility] Comment: Interpretive Data Percent cell count reference ranges are not reported, since discordance with absolute values may lead to misinterpretation of CBC data. Current Interpretive Data was last revised on 2017. Imm gran pct 0.5 % [facility] Comment: Interpretive Data Percent cell count reference ranges are not reported, since discordance with absolute values may lead to misinterpretation of CBC data. Current Interpretive Data was last revised on 2017. Lymphocyte pct 16.6 % [facility] Comment: Interpretive Data Percent cell count reference ranges are not reported, since discordance with absolute values may lead to misinterpretation of CBC data. Current Interpretive Data was last revised on 2017. Monocyte pct 9.6 % [facility] Comment: Interpretive Data Percent cell count reference ranges are not reported, since discordance with absolute values may lead to misinterpretation of CBC data. Current Interpretive Data was last revised on 2017. Eosinophil pct 1.5 % [facility] Comment: Interpretive Data Percent cell count reference ranges are not reported, since discordance with absolute values may lead to misinterpretation of CBC data. Current Interpretive Data was last revised on 2017. Basophil pct 0.5 % [facility] Comment: Interpretive Data Percent cell count reference ranges are not reported, since discordance with absolute values may lead to misinterpretation of CBC data. Current Interpretive Data was last revised on 2017. Blood 12/22/2023 9:36 PM [employer]ENER 12/22/2023 10:01 PM [employer]ENER Parmjit Meehan MD LAB BLOOD ORDERABLES Final Resul t Performing Organization Address [facility] Co de Phone Number [facility] [employer] [place] [address] * Type and screen (12/22/2023 9:36 PM [employer]ENER) Maira, indirect Negative ABO Rh O Positive [facility] Blood 12/22/2023 9:36 PM [employer]ENER 12/22/2023 9:47 PM [employer]ENER Narrative [facility] - 12/22/2023 10:45 PM [employer]ENER Has the patient had Daratumumab or Isatuximab in the past 6 months?->Unknown Parmjit Meehan MD LAB BLOOD BANK TEST ORDERABLES F inal Result Performing Organization Address [facility] Co de Phone Number [facility] [employer] [place] [address] * (ABNORMAL) Protime-INR (12/22/2023 9:36 PM [employer] HE[employer]ENER) PT 15.6(H) 9.7 - 13.0 sec INR 1.43(H) 0.90 - 1.20 [facility] Comment: Interpretive data Oral anticoagulant therapeutic ranges: Venous thromboembolism prophylaxis or treatment: 2.0-3.0 CARDIOLOGY Standard range: 2.0-3.0 High-intensity range: 2.5-3.5 Refer to indication-specific guidelines for appropriate target ranges for prosthetic heart valve replacement. Current interpretive data was last revised on 2019. Blood 12/22/2023 9:36 PM [employer]ENER 12/22/2023 9:50 PM [employer] HE[employer] ST[employer]ENER us Parmjit Meehan MD LAB BLOOD ORDERABLES Final Resul t [facility] Department [place] [address] * (ABNORMAL) Renal function panel (12/22/2023 9:36 PM [employer] HE[employer]ENER) Sodium 133(L) 135 - 145 mmol/L Potassium, pl 4.7 3.3 - 4.9 mmol/L [facility] Chloride 98 97 - 110 mmol/L [facility] CO2 24 22 - 32 mmol/L [facility] Anion gap 11 2 - 15 mmol/L [facility] BUN 22 6 - 25 mg/dL [facility] Creatinine 0.78 0.60 - 1.10 mg/dL [facility] Glucose 174 70 - 199 mg/dL [facility] Comment: Interpretive Data Fasting glucose >/= [...] 2022. Calcium 8.7 8.5 - 10.3 mg/dL [facility] Phosphorus, pl 3.6 2.3 - 4.5 mg/dL [facility] Albumin 2.9(L) 3.5 - 5.0 g/dL [facility] Blood 12/22/2023 9:36 PM [employer]ENER 12/22/2023 9:52 PM [employer]ENER Parmjit Meehan MD LAB BLOOD ORDERABLES Final Resul t Performing Organization Address City/[facility] Co de Phone Number [facility] [place] [address] * Magnesium (12/22/2023 9:36 PM [employer] HEEL ST[employer]ENER) [facility] Magnesium 1.8 1.4 - 2.5 mg/dL Blood 12/22/2023 9:36 PM [employer]ENER 12/22/2023 9:52 PM [employer]ENER Parmjit Meehan MD LAB BLOOD ORDERABLES Final Resul t Performing Organization Address [facility] de Phone Number [facility] [place] [address] * (ABNORMAL) CBC with auto differential (12/22/2023 9:36 PM [employer] HEEL ST[employer]ENER) [facility] WBC 13.1(H) 3.8 - 9.9 K/cumm Hgb 8.5(L) 11.9 - 15.5 g/dL [facility] Hct 27.2(L) 35.6 - 45.5 % [facility] Plt 395 150 - 400 K/cumm [facility] MPV 9.4 9.1 - 12.3 fL [facility] RBC 3.20(L) 3.90 - 5.20 M/cumm [facility] MCV 85.0 81.3 - 96.4 fL [facility] MCH 26.6(L) 27.1 - 33.3 pg [facility] MCHC 31.3(L) 32.3 - 35.7 g/dL [facility] RDW CV 18.6(H) 11.1 - 14.9 % [facility] RDW SD 57.4(H) 35.7 - 48.1 fL [facility] NRBC abs 0.00 0.00 - 0.01 K/cumm [facility] Blood 12/22/2023 9:36 PM [employer] HE[employer] ST[employer]ENER 12/22/2023 10:01 PM [employer] HE[employer] ST[employer]ENER aPrmjit Meehan MD LAB BLOOD ORDERABLES Final Resul t Performing Organization Address [facility] de Phone Number [facility] [place] [address] * Infection Prevention Angie auris PCR, surveillance Axilla/Groin (12/21/2023 9:32 PM [employer]ENER) Angie auris DNA Not Detected Not Detected [facility] Comment: Interpretive Data Testing performed by [facility] Molecular Infectious Disease Laboratory using the Drimmi[employer] MDX Angie auris assay. ??This assay detects DNA from Angie auris using Real-Time PCR. ??This assay is laboratory developed and is not cleared by the [facility] Food and Drug Administration. ??The performance characteristics have been verified by the [facility] Molecular Infectious Disease Laboratory. Interpretive data was last reviewed on 06/11/2023 Axilla/Groin 12/21/2023 9:32 PM [employer] HE[employer] ST[employer]ENER 12/21/2023 10:06 PM [employer] HEEL ST[employer]ENER Familia So MD LAB MICROBIOLOGY - GENERAL OR DERABLES Final Result Performing Organization Address [facility] de Phone Number [facility] [place] [address] [facility] * eGFR (12/19/2023 10:29 PM CDT) eGFR >90 >=60 mL/min/1. 73 [...] Radford MD LAB BLOOD ORDERABLES Final Result [facility] Department [place] [address] * (ABNORMAL) Differential, auto (12/19/2023 10:29 PM CDT) Neutrophil abs 6.7(H) 1.5 - 6.5 K/cumm Imm gran abs 0.1 0.0 - 0.1 K/cumm [facility] Lymphocyte abs 2.2 0.8 - 3.3 K/cumm [facility] Monocyte abs 1.1(H) 0.2 - 0.8 K/cumm [facility] Eosinophil abs 0.3 0.0 - 0.5 K/cumm [facility] Basophil abs 0.1 0.0 - 0.1 K/cumm [facility] Neutrophil pct 64.7 % [facility] Comment: Interpretive Data Percent cell count reference ranges are not reported, since discordance with absolute values may lead to misinterpretation of CBC data. Current Interpretive Data was last revised on 2017. Imm gran pct 0.5 % [facility] Comment: Interpretive Data Percent cell count reference ranges are not reported, since discordance with absolute values may lead to misinterpretation of CBC data. Current Interpretive Data was last revised on 2017. Lymphocyte pct 20.7 % [facility] Comment: Interpretive Data Percent cell count reference ranges are not reported, since discordance with absolute values may lead to misinterpretation of CBC data. Current Interpretive Data was last revised on 2017. Monocyte pct 10.9 % [facility] Comment: Interpretive Data Percent cell count reference ranges are not reported, since discordance with absolute values may lead to misinterpretation of CBC data. Current Interpretive Data was last revised on 2017. Eosinophil pct 2.6 % [facility] Comment: Interpretive Data Percent cell count reference ranges are not reported, since discordance with absolute values may lead to misinterpretation of CBC data. Current Interpretive Data was last revised on 2017. Basophil pct 0.6 % [facility] Comment: Interpretive Data Percent cell count reference ranges are not reported, since discordance with absolute values may lead to misinterpretation of CBC data. Current Interpretive Data was last revised on 2017. Blood 12/19/2023 10:2 9 PM CDT 12/19/2023 11:03 PM CDT Álvaro Radford MD LAB BLOOD ORDERABLES Final Result Performing Organization Address City/[facility] Co de Phone Number [facility] Department [place] [address] * Magnesium (12/19/2023 10:29 PM CDT) Magnesium 1.8 1.4 - 2.5 mg/dL Blood 12/19/2023 10:2 9 PM CDT 12/19/2023 11:03 PM CDT Álvaro Radford MD LAB BLOOD ORDERABLES Final Result Performing Organization Address [facility] Co de Phone Number [facility] Department [place] [address] * (ABNORMAL) Renal function panel (12/19/2023 10:29 PM CDT) Pathologist [facility] [place] Sodium 135 135 - 145 mmol/L Potassium, pl 4.6 3.3 - 4.9 mmol/L [facility] Chloride 101 97 - 110 mmol/L [facility] CO2 26 22 - 32 mmol/L [facility] Anion gap 8 2 - 15 mmol/L [facility] BUN 22 6 - 25 mg/dL [facility] Creatinine 0.73 0.60 - 1.10 mg/dL [facility] Glucose 185 70 - 199 mg/dL [facility] Comment: Interpretive Data Fasting glucose >/= [...] 2022. Calcium 8.6 8.5 - 10.3 mg/dL [facility] Phosphorus, pl 3.3 2.3 - 4.5 mg/dL [facility] Albumin 2.6(L) 3.5 - 5.0 g/dL [facility] Blood 12/19/2023 10:2 9 PM CDT 12/19/2023 11:03 PM CDT us Álvaro Radford MD LAB BLOOD ORDERABLES Final Result [facility] Department [place] [address] * (ABNORMAL) CBC with auto differential (12/19/2023 10:29 PM CDT) Pathologist [facility] [place] WBC 10.4(H) 3.8 - 9.9 K/cumm Hgb 7.7(L) 11.9 - 15.5 g/dL [facility] Hct 25.3(L) 35.6 - 45.5 % [facility] Plt 337 150 - 400 K/cumm [facility] MPV 9.8 9.1 - 12.3 fL [facility] RBC 2.93(L) 3.90 - 5.20 M/cumm [facility] MCV 86.3 81.3 - 96.4 fL [facility] MCH 26.3(L) 27.1 - 33.3 pg [facility] MCHC 30.4(L) 32.3 - 35.7 g/dL [facility] RDW CV 18.9(H) 11.1 - 14.9 % [facility] RDW SD 60.0(H) 35.7 - 48.1 fL [facility] NRBC abs 0.00 0.00 - 0.01 K/cumm [facility] Blood 12/19/2023 10:2 9 PM CDT 12/19/2023 11:03 PM CDT Álvaro Radford MD LAB BLOOD ORDERABLES Final Result Performing Organization Address [facility]/ZIP Co de Phone Number [facility] Department [place] [address] * Type and screen (12/19/2023 10:29 PM CDT) ABO Rh O Positive Amira, indirect Negative [facility] Blood 12/19/2023 10:2 9 PM CDT 12/19/2023 11:07 PM CDT Narrative [facility] - 12/20/2023 12:23 AM CDT Has the patient had Daratumumab or Isatuximab in the past 6 months?->Unknown Álvaro Radford MD LAB BLOOD BANK TEST ORDERAB LES Final Result Performing Organization Address [facility]/ZIP Co de Phone Number [facility] Department [place] [address] * (ABNORMAL) Differential, auto (12/17/2023 8:27 PM CDT) Neutrophil abs 8.0(H) 1.5 - 6.5 K/cumm Imm gran abs 0.0 0.0 - 0.1 K/cumm [facility] Lymphocyte abs 1.7 0.8 - 3.3 K/cumm [facility] Monocyte abs 1.0(H) 0.2 - 0.8 K/cumm [facility] Eosinophil abs 0.1 0.0 - 0.5 K/cumm [facility] Basophil abs 0.1 0.0 - 0.1 K/cumm [facility] Neutrophil pct 72.9 % [facility] Comment: Interpretive Data Percent cell count reference ranges are not reported, since discordance with absolute values may lead to misinterpretation of CBC data. Current Interpretive Data was last revised on 2017. Imm gran pct 0.4 % [facility] Comment: Interpretive Data Percent cell count reference ranges are not reported, since discordance with absolute values may lead to misinterpretation of CBC data. Current Interpretive Data was last revised on 2017. Lymphocyte pct 15.5 % [facility] Comment: Interpretive Data Percent cell count reference ranges are not reported, since discordance with absolute values may lead to misinterpretation of CBC data. Current Interpretive Data was last revised on 2017. Monocyte pct 9.4 % [facility] Comment: Interpretive Data Percent cell count reference ranges are not reported, since discordance with absolute values may lead to misinterpretation of CBC data. Current Interpretive Data was last revised on 2017. Eosinophil pct 1.3 % [facility] Comment: Interpretive Data Percent cell count reference ranges are not reported, since discordance with absolute values may lead to misinterpretation of CBC data. Current Interpretive Data was last revised on 2017. Basophil pct 0.5 % [facility] Comment: Interpretive Data Percent cell count reference ranges are not reported, since discordance with absolute values may lead to misinterpretation of CBC data. Current Interpretive Data was last revised on 2017. Blood 12/17/2023 8:27 PM CDT 12/17/2023 9:02 PM CDT Parmjit Meehan MD LAB BLOOD ORDERABLES Final Resul t Performing Organization Address [facility] de Phone Number [facility] Department [place] [address] * (ABNORMAL) CBC with auto differential (12/17/2023 8:27 PM CDT) [facility] WBC 11.0(H) 3.8 - 9.9 K/cumm Hgb 8.1(L) 11.9 - 15.5 g/dL [facility] Hct 27.4(L) 35.6 - 45.5 % [facility] Plt 334 150 - 400 K/cumm [facility] MPV 10.7 9.1 - 12.3 fL [facility] RBC 3.20(L) 3.90 - 5.20 M/cumm [facility] MCV 85.6 81.3 - 96.4 fL [facility] MCH 25.3(L) 27.1 - 33.3 pg [facility] MCHC 29.6(L) 32.3 - 35.7 g/dL [facility] RDW CV 19.2(H) 11.1 - 14.9 % [facility] RDW SD 60.4(H) 35.7 - 48.1 fL [facility] NRBC abs 0.00 0.00 - 0.01 K/cumm [facility] Blood 12/17/2023 8:27 PM CDT 12/17/2023 9:02 PM CDT Parmjit Meehan MD LAB BLOOD ORDERABLES Final Resul t Performing Organization Address City/[facility] Co de Phone Number [facility] Department [place] [address] * eGFR (12/16/2023 10:51 PM CDT) Pathologist [facility] [place] eGFR 87 >=60 mL/min/1. 73 m2 Comment: [...] Radford MD LAB BLOOD ORDERABLES Final Result [facility] Department [place] [address] * (ABNORMAL) Differential, auto (12/16/2023 10:51 PM CDT) Neutrophil abs 7.1(H) 1.5 - 6.5 K/cumm Imm gran abs 0.1 0.0 - 0.1 K/cumm [facility] Lymphocyte abs 2.3 0.8 - 3.3 K/cumm [facility] Monocyte abs 1.1(H) 0.2 - 0.8 K/cumm [facility] Eosinophil abs 0.3 0.0 - 0.5 K/cumm [facility] Basophil abs 0.1 0.0 - 0.1 K/cumm [facility] Neutrophil pct 64.9 % [facility] Comment: Interpretive Data Percent cell count reference ranges are not reported, since discordance with absolute values may lead to misinterpretation of CBC data. Current Interpretive Data was last revised on 2017. Imm gran pct 0.6 % [facility] Comment: Interpretive Data Percent cell count reference ranges are not reported, since discordance with absolute values may lead to misinterpretation of CBC data. Current Interpretive Data was last revised on 2017. Lymphocyte pct 21.5 % [facility] Comment: Interpretive Data Percent cell count reference ranges are not reported, since discordance with absolute values may lead to misinterpretation of CBC data. Current Interpretive Data was last revised on 2017. Monocyte pct 9.9 % [facility] Comment: Interpretive Data Percent cell count reference ranges are not reported, since discordance with absolute values may lead to misinterpretation of CBC data. Current Interpretive Data was last revised on 2017. Eosinophil pct 2.5 % [facility] Comment: Interpretive Data Percent cell count reference ranges are not reported, since discordance with absolute values may lead to misinterpretation of CBC data. Current Interpretive Data was last revised on 2017. Basophil pct 0.6 % [facility] Comment: Interpretive Data Percent cell count reference ranges are not reported, since discordance with absolute values may lead to misinterpretation of CBC data. Current Interpretive Data was last revised on 2017. Blood 12/16/2023 10:5 1 PM CDT 12/16/2023 11:13 PM CDT us Álvaro Radford MD LAB BLOOD ORDERABLES Final Result [facility] Department [place] [address] * Magnesium (12/16/2023 10:51 PM CDT) Magnesium 1.7 1.4 - 2.5 mg/dL Blood 12/16/2023 10:5 1 PM CDT 12/16/2023 11:11 PM CDT us Álvaro Radford MD LAB BLOOD ORDERABLES Final Result [facility] Department [place] [address] * (ABNORMAL) Renal function panel (12/16/2023 10:51 PM CDT) [facility] Sodium 135 135 - 145 mmol/L Potassium, pl 4.6 3.3 - 4.9 mmol/L [facility] Chloride 101 97 - 110 mmol/L [facility] CO2 28 22 - 32 mmol/L [facility] Anion gap 6 2 - 15 mmol/L [facility] BUN 21 6 - 25 mg/dL [facility] Creatinine 0.76 0.60 - 1.10 mg/dL [facility] Glucose 139 70 - 199 mg/dL [facility] Comment: Interpretive Data Fasting glucose >/= [...] 2022. Calcium 8.4(L) 8.5 - 10.3 mg/dL [facility] Phosphorus, pl 3.3 2.3 - 4.5 mg/dL [facility] Albumin 2.8(L) 3.5 - 5.0 g/dL [facility] Blood 12/16/2023 10:5 1 PM CDT 12/16/2023 11:11 PM CDT us Álvaro Radford MD LAB BLOOD ORDERABLES Final Result [facility] [employer] [place] [address] * (ABNORMAL) CBC with auto differential (12/16/2023 10:51 PM CDT) WBC 10.9(H) 3.8 - 9.9 K/cumm Hgb 7.7(L) 11.9 - 15.5 g/dL [facility] Hct 25.8(L) 35.6 - 45.5 % [facility] Plt 347 150 - 400 K/cumm [facility] MPV 10.1 9.1 - 12.3 fL [facility] RBC 3.00(L) 3.90 - 5.20 M/cumm [facility] MCV 86.0 81.3 - 96.4 fL [facility] MCH 25.7(L) 27.1 - 33.3 pg [facility] MCHC 29.8(L) 32.3 - 35.7 g/dL [facility] RDW CV 19.5(H) 11.1 - 14.9 % [facility] RDW SD 61.1(H) 35.7 - 48.1 fL [facility] NRBC abs 0.00 0.00 - 0.01 K/cumm [facility] Blood 12/16/2023 10:5 1 PM CDT 12/16/2023 11:13 PM CDT Álvaro Radford MD LAB BLOOD ORDERABLES Final Result [facility] [place] [employer] [place] [address] * Type and screen (12/16/2023 10:51 PM CDT) ABO Rh O Positive Maira, indirect Negative [facility] Blood 12/16/2023 10:5 1 PM CDT 12/16/2023 11:07 PM CDT Narrative [facility] - 12/17/2023 12:31 AM CDT Has the patient had Daratumumab or Isatuximab in the past 6 months?->Unknown Álvaro Radford MD LAB BLOOD BANK TEST ORDERAB LES Final Result Performing Organization Address [facility] de Phone Number [facility] [employer] [place] [address] * POCT glucose (12/16/2023 8:38 PM CDT) Glucose, POC 192 70 - 199 mg/dL Blood 12/16/2023 8:38 PM CDT 12/16/2023 8:38 PM CDT Parmjit Meehan MD LAB POCT ORDERABLES - DEVICE Fin al Result Performing Organization Address [facility] de Phone Number [facility] [employer] [place] [address] * POCT glucose (12/16/2023 4:34 PM CDT) Glucose, POC 164 70 - 199 mg/dL Blood 12/16/2023 4:34 PM CDT 12/16/2023 4:34 PM CDT Parmjit Meehan MD LAB POCT ORDERABLES - DEVICE Fin al Result Performing Organization Address [facility] de Phone Number [facility] [employer] [place] [address] * POCT glucose (12/16/2023 11:53 AM CDT) Glucose, POC 188 70 - 199 mg/dL Blood 12/16/2023 11:5 3 AM CDT 12/16/2023 11:53 AM CDT us Parmjit Meehan MD LAB POCT ORDERABLES - DEVICE Fin al Result Performing Organization Address [facility] Co de Phone Number [facility] [place] [address] * POCT glucose (12/16/2023 8:13 AM CDT) [facility] Signature Glucose, POC 127 70 - 199 mg/dL Blood 12/16/2023 8:13 AM CDT 12/16/2023 8:13 AM CDT Parmjit Meehan MD LAB POCT ORDERABLES - DEVICE Fin al Result Performing Organization Address [facility] de Phone Number [facility] [place] [address] * Infection Prevention Angie auris PCR, surveillance Axilla/Groin (12/15/2023 8:46 PM CDT) [facility] Angie auris DNA Not Detected Not Detected [facility] Comment: Interpretive Data Testing performed by [facility] using the [employer] Liaison MDX Angie auris assay. ??This assay detects DNA from Angie auris using Real-Time PCR. ??This assay is laboratory developed and is not cleared by the [place] Food and Drug Administration. ??The performance characteristics have been verified by the [facility]. Interpretive data was last reviewed on 06/11/2023 Axilla/Groin 12/15/2023 8:46 PM CDT 12/15/2023 8:57 PM CDT Familia So MD LAB MICROBIOLOGY - GENERAL OR DERABLES Final Result Performing Organization Address [facility] Co de Phone Number [facility] [place] [address] [facility] * (ABNORMAL) POCT glucose (12/15/2023 8:03 PM CDT) Glucose, POC 210(H) 70 - 199 mg/dL Blood 12/15/2023 8:03 PM CDT 12/15/2023 8:03 PM CDT Álvaro Radford MD LAB POCT ORDERABLES - DEVIC E Final Result Performing Organization Address [facility] Co de Phone Number [facility] [place] [employer] [place] [address] * POCT glucose (12/15/2023 5:20 PM CDT) Glucose, POC 172 70 - 199 mg/dL Blood 12/15/2023 5:20 PM CDT 12/15/2023 5:20 PM CDT Álvaro Radford MD LAB POCT ORDERABLES - DEVIC E Final Result Performing Organization Address City/[facility] Co de Phone Number [facility] [place] [employer] [place] [address] * POCT glucose (12/15/2023 12:12 PM CDT) Glucose, POC 169 70 - 199 mg/dL Blood 12/15/2023 12:1 2 PM CDT 12/15/2023 12:12 PM CDT Álvaro Radford MD LAB POCT ORDERABLES - DEVIC E Final Result Performing Organization Address City/[facility] de Phone Number [facility] [employer] [place] [address] * POCT glucose (12/15/2023 8:11 AM CDT) Glucose, POC 129 70 - 199 mg/dL Blood 12/15/2023 8:11 AM CDT 12/15/2023 8:11 AM CDT us Álvaro Radford MD LAB POCT ORDERABLES - DEVIC E Final Result Performing Organization Address [facility] Co de Phone Number [facility] [place] [address] * POCT glucose (12/14/2023 8:37 PM CDT) Glucose, POC 124 70 - 199 mg/dL Blood 12/14/2023 8:37 PM CDT 12/14/2023 8:37 PM CDT us Álvaro Radford MD LAB POCT ORDERABLES - DEVIC E Final Result Performing Organization Address [facility] de Phone Number [facility] [place] [address] * (ABNORMAL) POCT glucose (12/14/2023 5:32 PM CDT) Glucose, POC 214(H) 70 - 199 mg/dL Blood 12/14/2023 5:32 PM CDT 12/14/2023 5:32 PM CDT us Álvaro Radford MD LAB POCT ORDERABLES - DEVIC E Final Result Performing Organization Address [facility] de Phone Number [facility] Department [place] [address] * POCT glucose (12/14/2023 11:23 AM CDT) Glucose, POC 185 70 - 199 mg/dL Blood 12/14/2023 11:2 3 AM CDT 12/14/2023 11:23 AM CDT us Álvaro Radford MD LAB POCT ORDERABLES - DEVIC E Final Result Performing Organization Address [facility] Co de Phone Number [facility] Department [place] [address] * POCT glucose (12/14/2023 7:47 AM CDT) Pathologist [facility] Glucose, POC 128 70 - 199 mg/dL Blood 12/14/2023 7:47 AM CDT 12/14/2023 7:47 AM CDT us Álvaro Radford MD LAB POCT ORDERABLES - DEVIC E Final Result [facility] Department [place] [address] * eGFR (12/13/2023 9:51 PM CDT) [facility] eGFR 84 >=60 mL/min/1. 73 m2 Comment: [...] Radford MD LAB BLOOD ORDERABLES Final Result [facility] Department [place] [address] * Differential, auto (12/13/2023 9:51 PM CDT) Neutrophil abs 5.2 1.5 - 6.5 K/cumm Imm gran abs 0.0 0.0 - 0.1 K/cumm [facility] Lymphocyte abs 2.4 0.8 - 3.3 K/cumm [facility] Monocyte abs 0.8 0.2 - 0.8 K/cumm [facility] Eosinophil abs 0.2 0.0 - 0.5 K/cumm [facility] Basophil abs 0.1 0.0 - 0.1 K/cumm [facility] Neutrophil pct 59.8 % [facility] Comment: Interpretive Data Percent cell count reference ranges are not reported, since discordance with absolute values may lead to misinterpretation of CBC data. Current Interpretive Data was last revised on 2017. Imm gran pct 0.2 % [facility] Comment: Interpretive Data Percent cell count reference ranges are not reported, since discordance with absolute values may lead to misinterpretation of CBC data. Current Interpretive Data was last revised on 2017. Lymphocyte pct 27.8 % [facility] Comment: Interpretive Data Percent cell count reference ranges are not reported, since discordance with absolute values may lead to misinterpretation of CBC data. Current Interpretive Data was last revised on 2017. Monocyte pct 8.8 % [facility] Comment: Interpretive Data Percent cell count reference ranges are not reported, since discordance with absolute values may lead to misinterpretation of CBC data. Current Interpretive Data was last revised on 2017. Eosinophil pct 2.8 % [facility] Comment: Interpretive Data Percent cell count reference ranges are not reported, since discordance with absolute values may lead to misinterpretation of CBC data. Current Interpretive Data was last revised on 2017. Basophil pct 0.6 % [facility] Comment: Interpretive Data Percent cell count reference ranges are not reported, since discordance with absolute values may lead to misinterpretation of CBC data. Current Interpretive Data was last revised on 2017. Blood 12/13/2023 9:51 PM CDT 12/13/2023 10:19 PM CDT us Álvaro Radford MD LAB BLOOD ORDERABLES Final Result [facility] Department [place] [address] * (ABNORMAL) Renal function panel (12/13/2023 9:51 PM CDT) Sodium 137 135 - 145 mmol/L Potassium, pl 4.5 3.3 - 4.9 mmol/L [facility] Chloride 103 97 - 110 mmol/L [facility] CO2 26 22 - 32 mmol/L [facility] Anion gap 8 2 - 15 mmol/L [facility] BUN 16 6 - 25 mg/dL [facility] Creatinine 0.78 0.60 - 1.10 mg/dL [facility] Glucose 127 70 - 199 mg/dL [facility] Comment: Interpretive Data Fasting glucose >/= [...] 2022. Calcium 8.4(L) 8.5 - 10.3 mg/dL [facility] Phosphorus, pl 3.0 2.3 - 4.5 mg/dL [facility] Albumin 2.5(L) 3.5 - 5.0 g/dL [facility] Blood 12/13/2023 9:51 PM CDT 12/13/2023 10:18 PM CDT Álvaro Radford MD LAB BLOOD ORDERABLES Final Result Performing Organization Address City/[facility] Co de Phone Number [facility] [place] [address] * Magnesium (12/13/2023 9:51 PM CDT) [facility] Magnesium 2.0 1.4 - 2.5 mg/dL Blood 12/13/2023 9:51 PM CDT 12/13/2023 10:18 PM CDT Álvaro Radford MD LAB BLOOD ORDERABLES Final Result Performing Organization Address [facility] de Phone Number [facility] Department [place] [address] * (ABNORMAL) CBC with auto differential (12/13/2023 9:51 PM CDT) [facility] WBC 8.7 3.8 - 9.9 K/cumm Hgb 7.7(L) 11.9 - 15.5 g/dL [facility] Hct 25.4(L) 35.6 - 45.5 % [facility] Plt 354 150 - 400 K/cumm [facility] MPV 10.4 9.1 - 12.3 fL [facility] RBC 2.93(L) 3.90 - 5.20 M/cumm [facility] MCV 86.7 81.3 - 96.4 fL [facility] MCH 26.3(L) 27.1 - 33.3 pg [facility] MCHC 30.3(L) 32.3 - 35.7 g/dL [facility] RDW CV 19.2(H) 11.1 - 14.9 % [facility] RDW SD 60.9(H) 35.7 - 48.1 fL [facility] NRBC abs 0.00 0.00 - 0.01 K/cumm [facility] Blood 12/13/2023 9:51 PM CDT 12/13/2023 10:19 PM CDT Álvaro Radford MD LAB BLOOD ORDERABLES Final Result Performing Organization Address City/[facility]/ZIP Co de Phone Number [facility] [employer] [place] [address] * Type and screen (12/13/2023 9:51 PM CDT) Maira, indirect Negative ABO Rh O Positive [facility] Blood 12/13/2023 9:51 PM CDT 12/13/2023 10:18 PM CDT Narrative [facility] - 12/13/2023 11:24 PM CDT Has the patient had Daratumumab or Isatuximab in the past 6 months?->Unknown Álvaro Radford MD LAB BLOOD BANK TEST ORDERAB LES Final Result Performing Organization Address [facility] [place] [address] * POCT glucose (12/13/2023 8:24 PM CDT) Glucose, POC 163 70 - 199 mg/dL Blood 12/13/2023 8:24 PM CDT 12/13/2023 8:24 PM CDT Álvaro Radford MD LAB POCT ORDERABLES - DEVIC E Final Result Performing Organization Address [facility]/[place] [address] * POCT glucose (12/13/2023 4:31 PM CDT) Glucose, POC 128 70 - 199 mg/dL Blood 12/13/2023 4:31 PM CDT 12/13/2023 4:31 PM CDT us Álvaro Radford MD LAB POCT ORDERABLES - DEVIC E Final Result Performing Organization Address [facility] de Phone Number [facility] [employer] [place] [address] * (ABNORMAL) POCT glucose (12/13/2023 11:07 AM CDT) Glucose, POC 213(H) 70 - 199 mg/dL Blood 12/13/2023 11:0 7 AM CDT 12/13/2023 11:07 AM CDT us Álvaro Radford MD LAB POCT ORDERABLES - DEVIC E Final Result Performing Organization Address [facility] de Phone Number [facility] [employer] [place] [address] * POCT glucose (12/13/2023 7:48 AM CDT) Glucose, POC 121 70 - 199 mg/dL Blood 12/13/2023 7:48 AM CDT 12/13/2023 7:48 AM CDT us Álvaro Radford MD LAB POCT ORDERABLES - DEVIC E Final Result Performing Organization Address [facility] de Phone Number [facility] [employer] [place] [address] * POCT glucose (12/12/2023 7:59 PM CDT) Glucose, POC 149 70 - 199 mg/dL Blood 12/12/2023 7:59 PM CDT 12/12/2023 7:59 PM CDT us Álvaro Radford MD LAB POCT ORDERABLES - DEVIC E Final Result Performing Organization Address [facility] Co de Phone Number [facility] [employer] [place] [address] * POCT glucose (12/12/2023 5:09 PM CDT) Glucose, POC 181 70 - 199 mg/dL Blood 12/12/2023 5:09 PM CDT 12/12/2023 5:09 PM CDT us Álvaro Radford MD LAB POCT ORDERABLES - DEVIC E Final Result Performing Organization Address [facility] [place] [address] * (ABNORMAL) POCT glucose (12/12/2023 11:19 AM CDT) Glucose, POC 206(H) 70 - 199 mg/dL Comment:Glu2: RN/MD Notified Glucose comment 1 Glu2: RN/MD Notified [facility] Blood 12/12/2023 11:1 9 AM CDT 12/12/2023 11:19 AM CDT us Álvaro Radford MD LAB POCT ORDERABLES - DEVIC E Final Result Performing Organization Address [facility] Co de Phone Number [facility] [place] [address] * POCT glucose (12/12/2023 7:24 AM CDT) Glucose, POC 114 70 - 199 mg/dL Blood 12/12/2023 7:24 AM CDT 12/12/2023 7:24 AM CDT us Álvaro Radford MD LAB POCT ORDERABLES - DEVIC E Final Result Performing Organization Address [facility] de Phone Number [facility] Department [place] [address] * (ABNORMAL) Hepatic function panel (12/11/2023 10:15 PM CDT) Pathologist [facility] Bilirubin, total <0.2 0.1 - 1.2 mg/dL Bilirubin, direct <0.2 0.1 - 0.3 mg/dL [facility] Protein, pl 6.8 6.5 - 8.5 g/dL [facility] Albumin 2.8(L) 3.5 - 5.0 g/dL [facility] Alk phos 83 40 - 130 Units/L [facility] ALT 11 7 - 45 Units/L [facility] AST 25 10 - 45 Units/L [facility] Blood 12/11/2023 10:1 5 PM CDT 12/11/2023 11:02 PM CDT Álvaro Radford MD LAB BLOOD ORDERABLES Final Result Performing Organization Address [facility] de Phone Number [facility] Department [place] [address] * eGFR (12/11/2023 10:15 PM CDT) Pathologist [facility] eGFR 82 >=60 mL/min/1. 73 m2 Comment: [...] Radford MD LAB BLOOD ORDERABLES Final Result [facility] Department [place] [address] * Differential, auto (12/11/2023 10:15 PM CDT) Pathologist [facility] Neutrophil abs 5.0 1.5 - 6.5 K/cumm Imm gran abs 0.0 0.0 - 0.1 K/cumm [facility] Lymphocyte abs 2.1 0.8 - 3.3 K/cumm [facility] Monocyte abs 0.7 0.2 - 0.8 K/cumm [facility] Eosinophil abs 0.3 0.0 - 0.5 K/cumm [facility] Basophil abs 0.1 0.0 - 0.1 K/cumm [facility] Neutrophil pct 61.1 % [facility] Comment: Interpretive Data Percent cell count reference ranges are not reported, since discordance with absolute values may lead to misinterpretation of CBC data. Current Interpretive Data was last revised on 2017. Imm gran pct 0.5 % [facility] Comment: Interpretive Data Percent cell count reference ranges are not reported, since discordance with absolute values may lead to misinterpretation of CBC data. Current Interpretive Data was last revised on 2017. Lymphocyte pct 25.9 % [facility] Comment: Interpretive Data Percent cell count reference ranges are not reported, since discordance with absolute values may lead to misinterpretation of CBC data. Current Interpretive Data was last revised on 2017. Monocyte pct 8.7 % [facility] Comment: Interpretive Data Percent cell count reference ranges are not reported, since discordance with absolute values may lead to misinterpretation of CBC data. Current Interpretive Data was last revised on 2017. Eosinophil pct 3.2 % [facility] Comment: Interpretive Data Percent cell count reference ranges are not reported, since discordance with absolute values may lead to misinterpretation of CBC data. Current Interpretive Data was last revised on 2017. Basophil pct 0.6 % [facility] Comment: Interpretive Data Percent cell count reference ranges are not reported, since discordance with absolute values may lead to misinterpretation of CBC data. Current Interpretive Data was last revised on 2017. Blood 12/11/2023 10:1 5 PM CDT 12/11/2023 11:07 PM CDT Maxime Lee MD LAB BLOOD ORDERABLES Final R esult Performing Organization Address City/[facility]/ZIP Co de Phone Number [facility] Department [place] [employer] [place] [address] * Magnesium (12/11/2023 10:15 PM CDT) Pathologist [facility] Magnesium 2.0 1.4 - 2.5 mg/dL Blood 12/11/2023 10:1 5 PM CDT 12/11/2023 11:02 PM CDT us Álvaro Radford MD LAB BLOOD ORDERABLES Final Result [facility] [place] [place] [address] * (ABNORMAL) Renal function panel (12/11/2023 10:15 PM CDT) Sodium 140 135 - 145 mmol/L Potassium, pl 4.4 3.3 - 4.9 mmol/L [facility] Chloride 103 97 - 110 mmol/L [facility] CO2 28 22 - 32 mmol/L [facility] Anion gap 9 2 - 15 mmol/L [facility] BUN 13 6 - 25 mg/dL [facility] Creatinine 0.80 0.60 - 1.10 mg/dL [facility] Glucose 161 70 - 199 mg/dL [facility] Comment: Interpretive Data Fasting glucose >/= [...] 2022. Calcium 8.2(L) 8.5 - 10.3 mg/dL [facility] Phosphorus, pl 3.0 2.3 - 4.5 mg/dL [facility] Albumin 2.8(L) 3.5 - 5.0 g/dL [facility] Blood 12/11/2023 10:1 5 PM CDT 12/11/2023 11:02 PM CDT us Álvaro Radford MD LAB BLOOD ORDERABLES Final Result [facility] Department [place] [address] * (ABNORMAL) CBC with auto differential (12/11/2023 10:15 PM CDT) Pathologist [facility] WBC 8.2 3.8 - 9.9 K/cumm Hgb 7.3(L) 11.9 - 15.5 g/dL [facility] Hct 25.3(L) 35.6 - 45.5 % [facility] Plt 290 150 - 400 K/cumm [facility] MPV 10.8 9.1 - 12.3 fL [facility] RBC 2.90(L) 3.90 - 5.20 M/cumm [facility] MCV 87.2 81.3 - 96.4 fL [facility] MCH 25.2(L) 27.1 - 33.3 pg [facility] MCHC 28.9(L) 32.3 - 35.7 g/dL [facility] RDW CV 19.1(H) 11.1 - 14.9 % [facility] RDW SD 61.1(H) 35.7 - 48.1 fL [facility] NRBC abs 0.00 0.00 - 0.01 K/cumm [facility] Blood 12/11/2023 10:1 5 PM CDT 12/11/2023 11:07 PM CDT us Maxime Lee MD LAB BLOOD ORDERABLES Final R esult Performing Organization Address City/[facility]/ZIP Co de Phone Number [facility] Department [place] [address] * POCT glucose (12/11/2023 9:48 PM CDT) Glucose, POC 181 70 - 199 mg/dL Blood 12/11/2023 9:48 PM CDT 12/11/2023 9:48 PM CDT us Álvaro Radford MD LAB POCT ORDERABLES - DEVIC E Final Result [facility] Department [place] [address] * POCT glucose (12/11/2023 4:59 PM CDT) Glucose, POC 95 70 - 199 mg/dL Blood 12/11/2023 4:59 PM CDT 12/11/2023 4:59 PM CDT us Álvaro Radford MD LAB POCT ORDERABLES - DEVIC E Final Result Performing Organization Address [facility] de Phone Number [facility] [place] [address] * (ABNORMAL) POCT glucose (12/11/2023 11:48 AM CDT) Glucose, POC 207(H) 70 - 199 mg/dL Blood 12/11/2023 11:4 8 AM CDT 12/11/2023 11:48 AM CDT Álvaro Radford MD LAB POCT ORDERABLES - DEVIC E Final Result Performing Organization Address [facility] de Phone Number [facility] Department [place] [address] * POCT glucose (12/11/2023 8:31 AM CDT) Glucose, POC 110 70 - 199 mg/dL Blood 12/11/2023 8:31 AM CDT 12/11/2023 8:31 AM CDT us Álvaro Radford MD LAB POCT ORDERABLES - DEVIC E Final Result Performing Organization Address [facility] de Phone Number [facility] [place] [address] * (ABNORMAL) Hemoglobin and hematocrit (12/11/2023 3:14 AM CDT) Hgb 7.2(L) 11.9 - 15.5 g/dL Hct 23.9(L) 35.6 - 45.5 % [facility] Blood 12/11/2023 3:14 AM CDT 12/11/2023 3:34 AM CDT us Álvaro Radford MD LAB BLOOD ORDERABLES Final Result Performing Organization Address [facility] Co de Phone Number [facility] [place] Department [place] [address] * eGFR (12/11/2023 12:10 AM CDT) Pathologist [facility] [place] eGFR 75 >=60 mL/min/1. 73 m2 Comment: [...] BLOOD ORDERABLES Final Result GO ROBERT [facility] Department [place] [address] * (ABNORMAL) Differential, auto (12/11/2023 12:10 AM CDT) [facility] Neutrophil abs 6.4 1.5 - 6.5 K/cumm Imm gran abs 0.1 0.0 - 0.1 K/cumm [facility] Lymphocyte abs 2.4 0.8 - 3.3 K/cumm [facility] Monocyte abs 1.1(H) 0.2 - 0.8 K/cumm [facility] Eosinophil abs 0.3 0.0 - 0.5 K/cumm [facility] Basophil abs 0.1 0.0 - 0.1 K/cumm [facility] Neutrophil pct 62.4 % [facility] Comment: Interpretive Data Percent cell count reference ranges are not reported, since discordance with absolute values may lead to misinterpretation of CBC data. Current Interpretive Data was last revised on 2017. Imm gran pct 0.5 % [facility] Comment: Interpretive Data Percent cell count reference ranges are not reported, since discordance with absolute values may lead to misinterpretation of CBC data. Current Interpretive Data was last revised on 2017. Lymphocyte pct 23.6 % [facility] Comment: Interpretive Data Percent cell count reference ranges are not reported, since discordance with absolute values may lead to misinterpretation of CBC data. Current Interpretive Data was last revised on 2017. Monocyte pct 10.3 % [facility] Comment: Interpretive Data Percent cell count reference ranges are not reported, since discordance with absolute values may lead to misinterpretation of CBC data. Current Interpretive Data was last revised on 2017. Eosinophil pct 2.7 % [facility] Comment: Interpretive Data Percent cell count reference ranges are not reported, since discordance with absolute values may lead to misinterpretation of CBC data. Current Interpretive Data was last revised on 2017. Basophil pct 0.5 % [facility] Comment: Interpretive Data Percent cell count reference ranges are not reported, since discordance with absolute values may lead to misinterpretation of CBC data. Current Interpretive Data was last revised on 2017. Blood 12/11/2023 12:1 0 AM CDT 12/11/2023 12:37 AM CDT us Maxime Lee MD LAB BLOOD ORDERABLES Final R esult [facility] [place] [address] * Magnesium (12/11/2023 12:10 AM CDT) [facility] Magnesium 1.8 1.4 - 2.5 mg/dL Blood 12/11/2023 12:1 0 AM CDT 12/11/2023 12:37 AM CDT Álvaro Radford MD LAB BLOOD ORDERABLES Final Result Performing Organization Address [facility] [place] [address] * Type and screen (12/11/2023 12:10 AM CDT) [facility] Maira, indirect Negative ABO Rh O Positive [facility] Blood 12/11/2023 12:1 0 AM CDT 12/11/2023 12:26 AM CDT Narrative [facility] - 12/11/2023 1:33 AM CDT Has the patient had Daratumumab or Isatuximab in the past 6 months?->Unknown Álvaro Radford MD LAB BLOOD BANK TEST ORDERAB LES Final Result Performing Organization Address [facility] Co de Phone Number [facility] [place] [address] * (ABNORMAL) Renal function panel (12/11/2023 12:10 AM CDT) [facility] Sodium 138 135 - 145 mmol/L Potassium, pl 3.9 3.3 - 4.9 mmol/L [facility] Chloride 105 97 - 110 mmol/L [facility] CO2 26 22 - 32 mmol/L [facility] Anion gap 7 2 - 15 mmol/L [facility] BUN 13 6 - 25 mg/dL [facility] Creatinine 0.86 0.60 - 1.10 mg/dL [facility] Glucose 111 70 - 199 mg/dL [facility] Comment: Interpretive Data Fasting glucose >/= [...] 2022. Calcium 8.4(L) 8.5 - 10.3 mg/dL [facility] Phosphorus, pl 2.8 2.3 - 4.5 mg/dL [facility] Albumin 2.1(L) 3.5 - 5.0 g/dL [facility] Blood 12/11/2023 12:1 0 AM CDT 12/11/2023 12:37 AM CDT us Álvaro Radford MD LAB BLOOD ORDERABLES Final Result [facility] Department [place] [address] * (ABNORMAL) CBC with auto differential (12/11/2023 12:10 AM CDT) WBC 10.2(H) 3.8 - 9.9 K/cumm Hgb 7.0(L) 11.9 - 15.5 g/dL [facility] Hct 23.7(L) 35.6 - 45.5 % [facility] Plt 424(H) 150 - 400 K/cumm [facility] MPV 9.3 9.1 - 12.3 fL [facility] RBC 2.71(L) 3.90 - 5.20 M/cumm [facility] MCV 87.5 81.3 - 96.4 fL [facility] MCH 25.8(L) 27.1 - 33.3 pg [facility] MCHC 29.5(L) 32.3 - 35.7 g/dL [facility] RDW CV 19.1(H) 11.1 - 14.9 % [facility] RDW SD 61.2(H) 35.7 - 48.1 fL [facility] NRBC abs 0.00 0.00 - 0.01 K/cumm [facility] Blood 12/11/2023 12:1 0 AM CDT 12/11/2023 12:37 AM CDT us Maxime Lee MD LAB BLOOD ORDERABLES Final R esult Performing Organization Address [facility] Co de Phone Number [facility] [employer] [place] [address] * POCT glucose (12/10/2023 8:55 PM CDT) Glucose, POC 167 70 - 199 mg/dL Blood 12/10/2023 8:55 PM CDT 12/10/2023 8:55 PM CDT us Álvaro Radford MD LAB POCT ORDERABLES - DEVIC E Final Result Performing Organization Address [facility] Co de Phone Number [facility] [place] [employer] [place] [address] * POCT glucose (12/10/2023 5:23 PM CDT) Glucose, POC 116 70 - 199 mg/dL Blood 12/10/2023 5:23 PM CDT 12/10/2023 5:23 PM CDT us Álvaro Radford MD LAB POCT ORDERABLES - DEVIC E Final Result Performing Organization Address [facility] Co de Phone Number [facility] [place] [address] * POCT glucose (12/10/2023 11:28 AM CDT) Glucose, POC 165 70 - 199 mg/dL Blood 12/10/2023 11:2 8 AM CDT 12/10/2023 11:28 AM CDT Álvaro Radford MD LAB POCT ORDERABLES - DEVIC E Final Result Performing Organization Address [facility] Co de Phone Number [facility] Department [place] [address] * POCT glucose (12/10/2023 8:32 AM CDT) Pathologist [facility] [place] Glucose, POC 111 70 - 199 mg/dL Blood 12/10/2023 8:32 AM CDT 12/10/2023 8:32 AM CDT Álvaro Radford MD LAB POCT ORDERABLES - DEVIC E Final Result Performing Organization Address [facility] de Phone Number [facility] Department [place] [address] * eGFR (12/09/2023 11:02 PM CDT) [facility] eGFR 81 >=60 mL/min/1. 73 m2 Comment: [...] Radford MD LAB BLOOD ORDERABLES Final Result [facility] Department [place] [address] * (ABNORMAL) Differential, auto (12/09/2023 11:02 PM CDT) Neutrophil abs 14.7(H) 1.5 - 6.5 K/cumm Imm gran abs 0.1 0.0 - 0.1 K/cumm [facility] Lymphocyte abs 1.9 0.8 - 3.3 K/cumm [facility] Monocyte abs 1.1(H) 0.2 - 0.8 K/cumm [facility] Eosinophil abs 0.1 0.0 - 0.5 K/cumm [facility] Basophil abs 0.1 0.0 - 0.1 K/cumm [facility] Neutrophil pct 82.0 % [facility] Comment: Interpretive Data Percent cell count reference ranges are not reported, since discordance with absolute values may lead to misinterpretation of CBC data. Current Interpretive Data was last revised on 2017. Imm gran pct 0.7 % [facility] Comment: Interpretive Data Percent cell count reference ranges are not reported, since discordance with absolute values may lead to misinterpretation of CBC data. Current Interpretive Data was last revised on 2017. Lymphocyte pct 10.7 % [facility] Comment: Interpretive Data Percent cell count reference ranges are not reported, since discordance with absolute values may lead to misinterpretation of CBC data. Current Interpretive Data was last revised on 2017. Monocyte pct 5.9 % [facility] Comment: Interpretive Data Percent cell count reference ranges are not reported, since discordance with absolute values may lead to misinterpretation of CBC data. Current Interpretive Data was last revised on 2017. Eosinophil pct 0.4 % [facility] Comment: Interpretive Data Percent cell count reference ranges are not reported, since discordance with absolute values may lead to misinterpretation of CBC data. Current Interpretive Data was last revised on 2017. Basophil pct 0.3 % [facility] Comment: Interpretive Data Percent cell count reference ranges are not reported, since discordance with absolute values may lead to misinterpretation of CBC data. Current Interpretive Data was last revised on 2017. Blood 12/09/2023 11:0 2 PM CDT 12/09/2023 11:12 PM CDT us Maxime Lee MD LAB BLOOD ORDERABLES Final R esult [facility] Department [place] [address] * (ABNORMAL) Renal function panel (12/09/2023 11:02 PM CDT) Sodium 141 135 - 145 mmol/L Potassium, pl 4.1 3.3 - 4.9 mmol/L [facility] Chloride 108 97 - 110 mmol/L [facility] CO2 27 22 - 32 mmol/L [facility] Anion gap 6 2 - 15 mmol/L [facility] BUN 10 6 - 25 mg/dL [facility] Creatinine 0.81 0.60 - 1.10 mg/dL [facility] Glucose 114 70 - 199 mg/dL [facility] Comment: Interpretive Data Fasting glucose >/= [...] 2022. Calcium 8.1(L) 8.5 - 10.3 mg/dL [facility] Phosphorus, pl 3.4 2.3 - 4.5 mg/dL [facility] Albumin 2.5(L) 3.5 - 5.0 g/dL [facility] Blood 12/09/2023 11:0 2 PM CDT 12/09/2023 11:12 PM CDT us Álvaro Radford MD LAB BLOOD ORDERABLES Final Result [facility] Department [place] [address] * (ABNORMAL) CBC with auto differential (12/09/2023 11:02 PM CDT) Pathologist [facility] [place] WBC 17.9(H) 3.8 - 9.9 K/cumm Hgb 7.3(L) 11.9 - 15.5 g/dL [facility] Hct 24.2(L) 35.6 - 45.5 % [facility] Plt 413(H) 150 - 400 K/cumm [facility] MPV 9.1 9.1 - 12.3 fL [facility] RBC 2.80(L) 3.90 - 5.20 M/cumm [facility] MCV 86.4 81.3 - 96.4 fL [facility] MCH 26.1(L) 27.1 - 33.3 pg [facility] MCHC 30.2(L) 32.3 - 35.7 g/dL [facility] RDW CV 18.8(H) 11.1 - 14.9 % [facility] RDW SD 59.6(H) 35.7 - 48.1 fL [facility] NRBC abs 0.00 0.00 - 0.01 K/cumm [facility] Blood 12/09/2023 11:0 2 PM CDT 12/09/2023 11:12 PM CDT Result [facility] Maxime Lee MD LAB BLOOD ORDERABLES Final R esult Performing Organization Address [facility] de Phone Number [facility] [place] [address] * POCT glucose (12/09/2023 8:21 PM CDT) Glucose, POC 167 70 - 199 mg/dL Blood 12/09/2023 8:21 PM CDT 12/09/2023 8:21 PM CDT Result [facility] Álvaro Radford MD LAB POCT ORDERABLES - DEVIC E Final Result Performing Organization Address [facility] Phone Number [facility] [place] [address] * POCT glucose (12/09/2023 5:01 PM CDT) Glucose, POC 137 70 - 199 mg/dL Blood 12/09/2023 5:01 PM CDT 12/09/2023 5:01 PM CDT Result [facility] Álvaro Radford MD LAB POCT ORDERABLES - DEVIC E Final Result Performing Organization Address [facility] [place] [address] * Urinalysis reflex to microscopic and culture Urine (12/09/2023 4:51 PM CDT) Color, ur Yellow Yellow Clarity, ur Clear Clear [facility] Specific gravity, ur 1.016 1.003 - 1.030 [facility] pH, urine 6.0 [facility] Comment: Interpretive Data ? Urine pH is affected by diet, medications, systemic acid-base disturbances, and renal tubular function. ??pH may affect urinary stone formation. ??For example, urine pH below 6.0 may help reduce the tendency for calcium phosphate stones and pH greater than 6.0 may reduce the tendency for uric acid stone formation. Source: [facility] Current Interpretive Data was last revised on 2017 Protein, ur ql Trace Negative [facility] Glucose, ur ql Negative Negative [facility] Ketones, ur Negative Negative [facility] Bilirubin, ur Negative Negative [facility] Blood, ur Negative Negative [facility] Urobilinogen, ur <2.0 <2.0 mg/dL [facility] Nitrite, ur Negative Negative [facility] Leukocyte esterase, ur Negative Negative [facility] UA reflex comment Reflex conditions for microscopic UA and culture not met. [facility] Urine 12/09/2023 4:51 PM CDT 12/09/2023 5:25 PM CDT Álvaro Radford MD LAB MICROBIOLOGY - GENERAL ORDERABLES Final Result Performing Organization Address [facility] Co de Phone Number [facility] Department [place] [address] * Lactate (12/09/2023 3:21 PM CDT) Lactate 1.6 0.7 - 2.0 mmol/L Blood 12/09/2023 3:21 PM CDT 12/09/2023 3:44 PM CDT Álvaro Radford MD LAB BLOOD ORDERABLES Final Result [facility] [employer] [place] [address] * Magnesium (12/09/2023 12:27 PM CDT) Magnesium 2.0 1.4 - 2.5 mg/dL Blood 12/09/2023 12:2 7 PM CDT 12/09/2023 12:54 PM CDT us Álvaro Radford MD LAB BLOOD ORDERABLES Final Result Performing Organization Address [facility] Co de Phone Number GO ROBERT [facility] Department [place] [address] * eGFR (12/09/2023 12:27 PM CDT) eGFR [...] PM CDT 12/09/2023 12:54 PM CDT us Álavro Radford MD LAB BLOOD ORDERABLES Final Result Performing Organization Address [facility] Co de Phone Number GO ROBERT [facility] Department [place] [address] * Basic metabolic panel (12/09/2023 12:27 PM CDT) Pathologist [facility] [place] Sodium 136 135 - 145 mmol/L Potassium, pl See Comment 3.3 - 4.9 mmol/L [facility] Comment:Credited; Hemolyzed Specimen Chloride 102 97 - 110 mmol/L [facility] CO2 24 22 - 32 mmol/L [facility] Anion gap 10 2 - 15 mmol/L [facility] BUN 11 6 - 25 mg/dL [facility] Creatinine 0.73 0.60 - 1.10 mg/dL [facility] Glucose 160 70 - 199 mg/dL [facility] Comment: Interpretive Data Fasting glucose >/= [...] 2022. Calcium 8.8 8.5 - 10.3 mg/dL [facility] Blood 12/09/2023 12:2 7 PM CDT 12/09/2023 12:54 PM CDT us Álvaro Radford MD LAB BLOOD ORDERABLES Final Result [facility] Department [place] [address] * (ABNORMAL) CBC without differential (12/09/2023 12:27 PM CDT) [facility] WBC 16.5(H) 3.8 - 9.9 K/cumm Hgb 9.1(L) 11.9 - 15.5 g/dL [facility] Hct 31.0(L) 35.6 - 45.5 % [facility] Plt 516(H) 150 - 400 K/cumm [facility] MPV 9.8 9.1 - 12.3 fL [facility] RBC 3.54(L) 3.90 - 5.20 M/cumm [facility] MCV 87.6 81.3 - 96.4 fL [facility] MCH 25.7(L) 27.1 - 33.3 pg [facility] MCHC 29.4(L) 32.3 - 35.7 g/dL [facility] RDW CV 19.0(H) 11.1 - 14.9 % [facility] RDW SD 60.5(H) 35.7 - 48.1 fL [facility] NRBC abs 0.00 0.00 - 0.01 K/cumm [facility] Blood 12/09/2023 12:2 7 PM CDT 12/09/2023 12:54 PM CDT Álvaro Radford MD LAB BLOOD ORDERABLES Final Result Performing Organization Address [place]/[facility] Co de Phone Number [facility] Department [place] [address] * Blood culture Blood (12/09/2023 12:27 PM CDT) Report Final Report: No growth Blood 12/09/2023 12:2 7 PM CDT 12/09/2023 1:12 PM CDT Narrative [facility] - 12/13/2023 4:00 PM CDT From [...] organism identification may be performed using the [employer] Gram-Positive Blood Culture Assay. This assay detects microbial DNA in positive blood culture broth via hybridization of target DNA to capture oligonucleotides on a microarray. This assay has been cleared by the [place] Food and Drug Administration and its performance characteristics have been verified by the [facility]. 5. ?For questions about this culture, contact the Microbiology Laboratory at [phone]. Interpretive data was last revised on 2019. Álvaro Radford MD LAB MICROBIOLOGY - GENERAL ORDERABLES Final Result GO ROBERT [facility] Department [place] [address] * Blood culture Blood (12/09/2023 12:27 PM CDT) Report Final Report: No growth Blood 12/09/2023 12:2 7 PM CDT 12/09/2023 1:12 PM CDT Narrative [facility] - 12/13/2023 4:00 PM CDT Collection->Peripheral [...] performance characteristics have been verified by the [facility]. 5. ?For questions about this culture, contact the Microbiology Laboratory at [phone]. Interpretive data was last revised on 2019. us Álvaro Radford MD LAB MICROBIOLOGY - GENERAL ORDERABLES Final Result Performing Organization Address [facility] de Phone Number [facility] [employer] [place] [address] * (ABNORMAL) POCT lactate (12/09/2023 12:20 PM CDT) [facility] Lactate POC i-STAT 5.0(C) 0.7 - 2.2 mmol/L Blood 12/09/2023 12:2 0 PM CDT 12/09/2023 12:20 PM CDT us Álvaro Radford MD LAB POCT ORDERABLES - DEVIC E Final Result Performing Organization Address [facility] de Phone Number [facility] [employer] [place] [address] * POCT glucose (12/09/2023 12:02 PM CDT) Glucose, POC 175 70 - 199 mg/dL Blood 12/09/2023 12:0 2 PM CDT 12/09/2023 12:02 PM CDT us Álvaro Radford MD LAB POCT ORDERABLES - DEVIC E Final Result Performing Organization Address [facility] Co de Phone Number [facility] [employer] [place] [address] * POCT glucose (12/09/2023 8:12 AM CDT) Pathologist [facility] [place] Glucose, POC 135 70 - 199 mg/dL Blood 12/09/2023 8:12 AM CDT 12/09/2023 8:12 AM CDT Álvaro aRdford MD LAB POCT ORDERABLES - DEVIC E Final Result Performing Organization Address [facility] Co de Phone Number [facility] [employer] [place] [address] * Magnesium (12/08/2023 8:30 PM CDT) [facility] Magnesium 2.1 1.4 - 2.5 mg/dL Blood 12/08/2023 8:30 PM CDT 12/08/2023 8:47 PM CDT Silvia Monsivais MD LAB BLOOD ORDERABLES Fi nal Result Performing Organization Address [facility] de Phone Number [facility] [employer] [place] [address] * eGFR (12/08/2023 8:30 PM CDT) Pathologist [facility] [place] eGFR 82 >=60 mL/min/1. 73 m2 Comment: [...] Radford MD LAB BLOOD ORDERABLES Final Result [facility] Department [place] [address] * (ABNORMAL) Differential, auto (12/08/2023 8:30 PM CDT) Neutrophil abs 6.7(H) 1.5 - 6.5 K/cumm Imm gran abs 0.1 0.0 - 0.1 K/cumm [facility] Lymphocyte abs 2.3 0.8 - 3.3 K/cumm [facility] Monocyte abs 0.7 0.2 - 0.8 K/cumm [facility] Eosinophil abs 0.2 0.0 - 0.5 K/cumm [facility] Basophil abs 0.1 0.0 - 0.1 K/cumm [facility] Neutrophil pct 66.8 % [facility] Comment: Interpretive Data Percent cell count reference ranges are not reported, since discordance with absolute values may lead to misinterpretation of CBC data. Current Interpretive Data was last revised on 2017. Imm gran pct 0.6 % [facility] Comment: Interpretive Data Percent cell count reference ranges are not reported, since discordance with absolute values may lead to misinterpretation of CBC data. Current Interpretive Data was last revised on 2017. Lymphocyte pct 22.8 % [facility] Comment: Interpretive Data Percent cell count reference ranges are not reported, since discordance with absolute values may lead to misinterpretation of CBC data. Current Interpretive Data was last revised on 2017. Monocyte pct 7.1 % [facility] Comment: Interpretive Data Percent cell count reference ranges are not reported, since discordance with absolute values may lead to misinterpretation of CBC data. Current Interpretive Data was last revised on 2017. Eosinophil pct 2.1 % [facility] Comment: Interpretive Data Percent cell count reference ranges are not reported, since discordance with absolute values may lead to misinterpretation of CBC data. Current Interpretive Data was last revised on 2017. Basophil pct 0.6 % [facility] Comment: Interpretive Data Percent cell count reference ranges are not reported, since discordance with absolute values may lead to misinterpretation of CBC data. Current Interpretive Data was last revised on 2017. Blood 12/08/2023 8:30 PM CDT 12/08/2023 8:47 PM CDT us Maxime Lee MD LAB BLOOD ORDERABLES Final R esult [facility] Department [place] [address] * (ABNORMAL) Renal function panel (12/08/2023 8:30 PM CDT) Sodium 137 135 - 145 mmol/L Potassium, pl 4.4 3.3 - 4.9 mmol/L [facility] Chloride 104 97 - 110 mmol/L [facility] CO2 26 22 - 32 mmol/L [facility] Anion gap 7 2 - 15 mmol/L [facility] BUN 13 6 - 25 mg/dL [facility] Creatinine 0.80 0.60 - 1.10 mg/dL [facility] Glucose 178 70 - 199 mg/dL [facility] Comment: Interpretive Data Fasting glucose >/= [...] 2022. Calcium 8.7 8.5 - 10.3 mg/dL [facility] Phosphorus, pl 3.2 2.3 - 4.5 mg/dL [facility] Albumin 2.8(L) 3.5 - 5.0 g/dL [facility] Blood 12/08/2023 8:30 PM CDT 12/08/2023 8:47 PM CDT us Álvaro Radford MD LAB BLOOD ORDERABLES Final Result [facility] Department [place] [address] * (ABNORMAL) CBC with auto differential (12/08/2023 8:30 PM CDT) [facility] WBC 10.0(H) 3.8 - 9.9 K/cumm Hgb 8.4(L) 11.9 - 15.5 g/dL [facility] Hct 27.6(L) 35.6 - 45.5 % [facility] Plt 483(H) 150 - 400 K/cumm [facility] MPV 9.2 9.1 - 12.3 fL [facility] RBC 3.26(L) 3.90 - 5.20 M/cumm [facility] MCV 84.7 81.3 - 96.4 fL [facility] MCH 25.8(L) 27.1 - 33.3 pg [facility] MCHC 30.4(L) 32.3 - 35.7 g/dL [facility] RDW CV 18.6(H) 11.1 - 14.9 % [facility] RDW SD 57.9(H) 35.7 - 48.1 fL [facility] NRBC abs 0.00 0.00 - 0.01 K/cumm [facility] Blood 12/08/2023 8:30 PM CDT 12/08/2023 8:47 PM CDT us Maxime Lee MD LAB BLOOD ORDERABLES Final R esult Performing Organization Address [facility] Co de Phone Number [facility] [place] [address] * POCT glucose (12/08/2023 8:08 PM CDT) Glucose, POC 182 70 - 199 mg/dL Blood 12/08/2023 8:08 PM CDT 12/08/2023 8:08 PM CDT us Álvaro Radford MD LAB POCT ORDERABLES - DEVIC E Final Result Performing Organization Address [facility] de Phone Number [facility] [place] [address] * POCT glucose (12/08/2023 5:56 PM CDT) Glucose, POC 130 70 - 199 mg/dL Blood 12/08/2023 5:56 PM CDT 12/08/2023 5:56 PM CDT us Álvaro Radford MD LAB POCT ORDERABLES - DEVIC E Final Result Performing Organization Address [facility] Co de Phone Number [facility] [employer] [address] * POCT glucose (12/08/2023 4:34 PM CDT) Glucose, POC 158 70 - 199 mg/dL Blood 12/08/2023 4:34 PM CDT 12/08/2023 4:34 PM CDT us Álvaro Radford MD LAB POCT ORDERABLES - DEVIC E Final Result Performing Organization Address [facility] Co de Phone Number [facility] [place] [address] * POCT glucose (12/08/2023 12:27 PM CDT) Glucose, POC 136 70 - 199 mg/dL Blood 12/08/2023 12:2 7 PM CDT 12/08/2023 12:27 PM CDT Álvaro Radford MD LAB POCT ORDERABLES - DEVIC E Final Result Performing Organization Address [facility] de Phone Number [facility] [place] [address] * POCT glucose (12/08/2023 11:27 AM CDT) Glucose, POC 194 70 - 199 mg/dL Blood 12/08/2023 11:2 7 AM CDT 12/08/2023 11:27 AM CDT Álvaro Radford MD LAB POCT ORDERABLES - DEVIC E Final Result Performing Organization Address [facility] de Phone Number [facility] [place] [address] * XR Abdomen Ap 1 Vw (12/08/2023 [...] it. Electronically signed by: Shin King M.D. us Álvaro Radford MD IMG XR PROCEDURES Final Res ult * POCT glucose (12/08/2023 8:08 AM CDT) Glucose, POC 123 70 - 199 mg/dL Blood 12/08/2023 8:08 AM CDT 12/08/2023 8:08 AM CDT us Álvaro Radford MD LAB POCT ORDERABLES - DEVIC E Final Result Performing Organization Address [facility] de Phone Number [facility] Department [place] [address] * POCT glucose (12/07/2023 9:36 PM CDT) Glucose, POC 159 70 - 199 mg/dL Blood 12/07/2023 9:36 PM CDT 12/07/2023 9:36 PM CDT us Álvaro Radford MD LAB POCT ORDERABLES - DEVIC E Final Result Performing Organization Address [facility]/State/ZIP Co de Phone Number [facility] Department [place] [address] * Magnesium (12/07/2023 9:16 PM CDT) Pathologist [facility] [place] Magnesium 2.3 1.4 - 2.5 mg/dL Blood 12/07/2023 9:16 PM CDT 12/07/2023 10:34 PM CDT Álvaro Radford MD LAB BLOOD ORDERABLES Final Result [facility] Department [place] [address] * eGFR (12/07/2023 9:16 PM CDT) Pathologist [facility] [place] eGFR 79 >=60 mL/min/1. 73 m2 Comment: [...] Radford MD LAB BLOOD ORDERABLES Final Result [facility] Department [place] [address] * Differential, auto (12/07/2023 9:16 PM CDT) Neutrophil abs 6.5 1.5 - 6.5 K/cumm Imm gran abs 0.0 0.0 - 0.1 K/cumm [facility] Lymphocyte abs 2.3 0.8 - 3.3 K/cumm [facility] Monocyte abs 0.7 0.2 - 0.8 K/cumm [facility] Eosinophil abs 0.2 0.0 - 0.5 K/cumm [facility] Basophil abs 0.1 0.0 - 0.1 K/cumm [facility] Neutrophil pct 66.6 % [facility] Comment: Interpretive Data Percent cell count reference ranges are not reported, since discordance with absolute values may lead to misinterpretation of CBC data. Current Interpretive Data was last revised on 2017. Imm gran pct 0.3 % [facility] Comment: Interpretive Data Percent cell count reference ranges are not reported, since discordance with absolute values may lead to misinterpretation of CBC data. Current Interpretive Data was last revised on 2017. Lymphocyte pct 23.7 % [facility] Comment: Interpretive Data Percent cell count reference ranges are not reported, since discordance with absolute values may lead to misinterpretation of CBC data. Current Interpretive Data was last revised on 2017. Monocyte pct 7.1 % [facility] Comment: Interpretive Data Percent cell count reference ranges are not reported, since discordance with absolute values may lead to misinterpretation of CBC data. Current Interpretive Data was last revised on 2017. Eosinophil pct 1.7 % [facility] Comment: Interpretive Data Percent cell count reference ranges are not reported, since discordance with absolute values may lead to misinterpretation of CBC data. Current Interpretive Data was last revised on 2017. Basophil pct 0.6 % [facility] Comment: Interpretive Data Percent cell count reference ranges are not reported, since discordance with absolute values may lead to misinterpretation of CBC data. Current Interpretive Data was last revised on 2017. Blood 12/07/2023 9:16 PM CDT 12/07/2023 10:34 PM CDT us Maxime Lee MD LAB BLOOD ORDERABLES Final R esult Performing Organization Address City/[facility]/ZIP Co de Phone Number [facility] [place] [address] * Infection Prevention Angie auris PCR, surveillance Axilla/Groin (12/07/2023 9:16 PM CDT) Angie auris DNA Not Detected Not Detected [facility] Comment: Interpretive Data Testing performed by [facility] using the [employer] MDX Anige auris assay. ??This assay detects DNA from Angie auris using Real-Time PCR. ??This assay is laboratory developed and is not cleared by the [facility] Food and Drug Administration. ??The performance characteristics have been verified by the [facility]. Interpretive data was last reviewed on 06/11/2023 Axilla/Groin 12/07/2023 9:16 PM CDT 12/07/2023 10:38 PM CDT us Familia So MD LAB MICROBIOLOGY - GENERAL OR DERABLES Final Result Performing Organization Address City/[facility]/ZIP Co de Phone Number [facility] Department [place] [employer] [place] [address] [facility] * Type and screen (12/07/2023 9:16 PM CDT) Maira, indirect Negative ABO Rh O Positive [facility] Blood 12/07/2023 9:16 PM CDT 12/07/2023 10:54 PM CDT Narrative [facility] - 12/07/2023 11:52 PM CDT Has the patient had Daratumumab or Isatuximab in the past 6 months?->Unknown Álvaro Radford MD LAB BLOOD BANK TEST ORDERAB LES Final Result [facility] Department [place] [address] * (ABNORMAL) Renal function panel (12/07/2023 9:16 PM CDT) [facility] Sodium 136 135 - 145 mmol/L Potassium, pl 4.4 3.3 - 4.9 mmol/L [facility] Chloride 102 97 - 110 mmol/L [facility] CO2 25 22 - 32 mmol/L [facility] Anion gap 9 2 - 15 mmol/L [facility] BUN 14 6 - 25 mg/dL [facility] Creatinine 0.82 0.60 - 1.10 mg/dL [facility] Glucose 149 70 - 199 mg/dL [facility] Comment: Interpretive Data Fasting glucose >/= [...] 2022. Calcium 8.3(L) 8.5 - 10.3 mg/dL [facility] Phosphorus, pl 3.3 2.3 - 4.5 mg/dL [facility] Albumin 2.7(L) 3.5 - 5.0 g/dL [facility] Blood 12/07/2023 9:16 PM CDT 12/07/2023 10:34 PM CDT us Álvaro Radford MD LAB BLOOD ORDERABLES Final Result [facility] Department [place] [address] * (ABNORMAL) CBC with auto differential (12/07/2023 9:16 PM CDT) WBC 9.7 3.8 - 9.9 K/cumm Hgb 7.8(L) 11.9 - 15.5 g/dL [facility] Hct 26.1(L) 35.6 - 45.5 % [facility] Plt 487(H) 150 - 400 K/cumm [facility] MPV 9.0(L) 9.1 - 12.3 fL [facility] RBC 3.07(L) 3.90 - 5.20 M/cumm [facility] MCV 85.0 81.3 - 96.4 fL [facility] MCH 25.4(L) 27.1 - 33.3 pg [facility] MCHC 29.9(L) 32.3 - 35.7 g/dL [facility] RDW CV 18.7(H) 11.1 - 14.9 % [facility] RDW SD 58.5(H) 35.7 - 48.1 fL [facility] NRBC abs 0.00 0.00 - 0.01 K/cumm [facility] Blood 12/07/2023 9:16 PM CDT 12/07/2023 10:34 PM CDT us Maxime Lee MD LAB BLOOD ORDERABLES Final R esult [facility] Department [place] [address] * POCT glucose (12/07/2023 5:14 PM CDT) Glucose, POC 147 70 - 199 mg/dL Blood 12/07/2023 5:14 PM CDT 12/07/2023 5:14 PM CDT us Álvaro Radford MD LAB POCT ORDERABLES - DEVIC E Final Result Performing Organization Address [facility] Phone Number [facility] [place] [address] * POCT glucose (12/07/2023 11:36 AM CDT) Glucose, POC 138 70 - 199 mg/dL Blood 12/07/2023 11:3 6 AM CDT 12/07/2023 11:36 AM CDT us Álvaro Radford MD LAB POCT ORDERABLES - DEVIC E Final Result Performing Organization Address [facility] Phone Number [facility] [place] [address] * POCT glucose (12/07/2023 8:41 AM CDT) Glucose, POC 136 70 - 199 mg/dL Blood 12/07/2023 8:41 AM CDT 12/07/2023 8:41 AM CDT us Álvaro Radford MD LAB POCT ORDERABLES - DEVIC E Final Result Performing Organization Address [facility] Phone Number [facility] [employer] [place] [address] * Magnesium (12/06/2023 9:47 PM CDT) Magnesium 1.9 1.4 - 2.5 mg/dL Blood 12/06/2023 9:47 PM CDT 12/06/2023 10:29 PM CDT us Álvaro Radford MD LAB BLOOD ORDERABLES Final Result Performing Organization Address [facility]/ZIP Co de Phone Number [facility] Department [place] [address] * eGFR (12/06/2023 9:47 PM CDT) Pathologist [facility] [place] eGFR 79 >=60 mL/min/1. 73 m2 Comment: [...] BLOOD ORDERABLES Final Result [facility] Department [place] [address] * (ABNORMAL) Differential, auto (12/06/2023 9:47 PM CDT) Pathologist [facility] Neutrophil abs 8.7(H) 1.5 - 6.5 K/cumm Imm gran abs 0.1 0.0 - 0.1 K/cumm [facility] Lymphocyte abs 2.3 0.8 - 3.3 K/cumm [facility] Monocyte abs 0.9(H) 0.2 - 0.8 K/cumm [facility] Eosinophil abs 0.2 0.0 - 0.5 K/cumm [facility] Basophil abs 0.1 0.0 - 0.1 K/cumm [facility] Neutrophil pct 71.3 % [facility] Comment: Interpretive Data Percent cell count reference ranges are not reported, since discordance with absolute values may lead to misinterpretation of CBC data. Current Interpretive Data was last revised on 2017. Imm gran pct 0.5 % [facility] Comment: Interpretive Data Percent cell count reference ranges are not reported, since discordance with absolute values may lead to misinterpretation of CBC data. Current Interpretive Data was last revised on 2017. Lymphocyte pct 19.0 % [facility] Comment: Interpretive Data Percent cell count reference ranges are not reported, since discordance with absolute values may lead to misinterpretation of CBC data. Current Interpretive Data was last revised on 2017. Monocyte pct 7.0 % [facility] Comment: Interpretive Data Percent cell count reference ranges are not reported, since discordance with absolute values may lead to misinterpretation of CBC data. Current Interpretive Data was last revised on 2017. Eosinophil pct 1.6 % [facility] Comment: Interpretive Data Percent cell count reference ranges are not reported, since discordance with absolute values may lead to misinterpretation of CBC data. Current Interpretive Data was last revised on 2017. Basophil pct 0.6 % [facility] Comment: Interpretive Data Percent cell count reference ranges are not reported, since discordance with absolute values may lead to misinterpretation of CBC data. Current Interpretive Data was last revised on 2017. Blood 12/06/2023 9:47 PM CDT 12/06/2023 10:24 PM CDT us Maxime Lee MD LAB BLOOD ORDERABLES Final R esult [facility] Department [place] [address] * (ABNORMAL) Renal function panel (12/06/2023 9:47 PM CDT) [facility] Sodium 136 135 - 145 mmol/L Potassium, pl 4.0 3.3 - 4.9 mmol/L [facility] Chloride 104 97 - 110 mmol/L [facility] CO2 24 22 - 32 mmol/L [facility] Anion gap 8 2 - 15 mmol/L [facility] BUN 11 6 - 25 mg/dL [facility] Creatinine 0.82 0.60 - 1.10 mg/dL [facility] Glucose 158 70 - 199 mg/dL [facility] Comment: Interpretive Data Fasting glucose >/= [...] 2022. Calcium 8.2(L) 8.5 - 10.3 mg/dL [facility] Phosphorus, pl 3.3 2.3 - 4.5 mg/dL [facility] Albumin 2.5(L) 3.5 - 5.0 g/dL [facility] Blood 12/06/2023 9:47 PM CDT 12/06/2023 10:29 PM CDT Álvaro Radford MD LAB BLOOD ORDERABLES Final Result [facility] Department [place] [address] * (ABNORMAL) CBC with auto differential (12/06/2023 9:47 PM CDT) WBC 12.2(H) 3.8 - 9.9 K/cumm Hgb 8.1(L) 11.9 - 15.5 g/dL [facility] Hct 27.7(L) 35.6 - 45.5 % [facility] Plt 490(H) 150 - 400 K/cumm [facility] MPV 9.1 9.1 - 12.3 fL [facility] RBC 3.23(L) 3.90 - 5.20 M/cumm [facility] MCV 85.8 81.3 - 96.4 fL [facility] MCH 25.1(L) 27.1 - 33.3 pg [facility] MCHC 29.2(L) 32.3 - 35.7 g/dL [facility] RDW CV 18.5(H) 11.1 - 14.9 % [facility] RDW SD 58.4(H) 35.7 - 48.1 fL [facility] NRBC abs 0.00 0.00 - 0.01 K/cumm [facility] Blood 12/06/2023 9:47 PM CDT 12/06/2023 10:24 PM CDT us Maxime Lee MD LAB BLOOD ORDERABLES Final R esult Performing Organization Address City/[facility]/ZIP Co de Phone Number [facility] [employer] [place] [address] * POCT glucose (12/06/2023 8:07 PM CDT) [facility] Glucose, POC 147 70 - 199 mg/dL Blood 12/06/2023 8:07 PM CDT 12/06/2023 8:07 PM CDT us Álvaro Radford MD LAB POCT ORDERABLES - DEVIC E Final Result Performing Organization Address [facility]/ZIP Co de Phone Number [facility] Department [place] [employer] [place] [address] * POCT glucose (12/06/2023 4:57 PM CDT) Glucose, POC 126 70 - 199 mg/dL Blood 12/06/2023 4:57 PM CDT 12/06/2023 4:57 PM CDT Álvaro Radford MD LAB POCT ORDERABLES - DEVIC E Final Result Performing Organization Address [facility] de Phone Number [facility] [place] [address] * POCT glucose (12/06/2023 11:45 AM CDT) Glucose, POC 168 70 - 199 mg/dL Blood 12/06/2023 11:4 5 AM CDT 12/06/2023 11:45 AM CDT Álvaro Radford MD LAB POCT ORDERABLES - DEVIC E Final Result Performing Organization Address [facility] de Phone Number [facility] [employer] [place] [address] * POCT glucose (12/06/2023 7:59 AM CDT) Glucose, POC 105 70 - 199 mg/dL Blood 12/06/2023 7:59 AM CDT 12/06/2023 7:59 AM CDT Álvaro Radford MD LAB POCT ORDERABLES - DEVIC E Final Result Performing Organization Address City/[facility] de Phone Number [facility] [employer] [place] [address] * Vancomycin level trough Draw trough 30 minutes prior to 4th dose. (12/06/2023 4:31 AM CDT) Vancomycin trough 14.3 10.0 - 20.0 mcg/mL Blood 12/06/2023 4:31 AM CDT 12/06/2023 4:43 AM CDT Narrative [facility] - 12/06/2023 5:12 AM CDT Draw trough 30 minutes prior to 4th dose. Álvaro Radford MD LAB BLOOD ORDERABLES Final Result Performing Organization Address [facility] de Phone Number [facility] [place] [address] * Magnesium (12/05/2023 9:24 PM CDT) Pathologist [facility] [place] Magnesium 2.0 1.4 - 2.5 mg/dL Blood 12/05/2023 9:24 PM CDT 12/05/2023 10:45 PM CDT Álvaro Radford MD LAB BLOOD ORDERABLES Final Result Performing Organization Address [facility] de Phone Number [facility] [place] [address] * eGFR (12/05/2023 9:24 PM CDT) Pathologist [facility] [place] eGFR 83 >=60 mL/min/1. 73 m2 Comment: [...] Radford MD LAB BLOOD ORDERABLES Final Result [facility] Department [place] [address] * (ABNORMAL) Differential, auto (12/05/2023 9:24 PM CDT) Neutrophil abs 8.5(H) 1.5 - 6.5 K/cumm Imm gran abs 0.1 0.0 - 0.1 K/cumm [facility] Lymphocyte abs 2.1 0.8 - 3.3 K/cumm [facility] Monocyte abs 1.0(H) 0.2 - 0.8 K/cumm [facility] Eosinophil abs 0.3 0.0 - 0.5 K/cumm [facility] Basophil abs 0.1 0.0 - 0.1 K/cumm [facility] Neutrophil pct 70.4 % [facility] Comment: Interpretive Data Percent cell count reference ranges are not reported, since discordance with absolute values may lead to misinterpretation of CBC data. Current Interpretive Data was last revised on 2017. Imm gran pct 0.5 % [facility] Comment: Interpretive Data Percent cell count reference ranges are not reported, since discordance with absolute values may lead to misinterpretation of CBC data. Current Interpretive Data was last revised on 2017. Lymphocyte pct 17.6 % [facility] Comment: Interpretive Data Percent cell count reference ranges are not reported, since discordance with absolute values may lead to misinterpretation of CBC data. Current Interpretive Data was last revised on 2017. Monocyte pct 8.2 % [facility] Comment: Interpretive Data Percent cell count reference ranges are not reported, since discordance with absolute values may lead to misinterpretation of CBC data. Current Interpretive Data was last revised on 2017. Eosinophil pct 2.5 % [facility] Comment: Interpretive Data Percent cell count reference ranges are not reported, since discordance with absolute values may lead to misinterpretation of CBC data. Current Interpretive Data was last revised on 2017. Basophil pct 0.8 % [facility] Comment: Interpretive Data Percent cell count reference ranges are not reported, since discordance with absolute values may lead to misinterpretation of CBC data. Current Interpretive Data was last revised on 2017. Blood 12/05/2023 9:24 PM CDT 12/05/2023 10:44 PM CDT us Maxime Lee MD LAB BLOOD ORDERABLES Final R esult Performing Organization Address [facility] Co de Phone Number [facility] Department [place] [employer] [place] [address] * ANCA vasculitis panel (12/05/2023 9:24 PM CDT) Myeloperoxidase ab <0.2 <=0.9 Ab Index Comment: Interpretive Data Negative: ??<1 Ab Index Positive: > or = 1 Ab Index Current interpretive data was last revised on 2016. Proteinase 3 ab 0.2 <=0.9 Ab Index [facility] Comment: Interpretive Data Negative: <1 Ab Index Positive: > or = 1 Ab Index Current interpretive data was last revised on 2016. Blood 12/05/2023 9:24 PM CDT 12/05/2023 9:44 PM CDT us Álvaro Radford MD LAB BLOOD ORDERABLES Final Result Performing Organization Address City/[facility] Co de Phone Number [facility] Department [place] [address] * (ABNORMAL) Renal function panel (12/05/2023 9:24 PM CDT) Pathologist [facility] [place] Sodium 137 135 - 145 mmol/L Potassium, pl 3.8 3.3 - 4.9 mmol/L [facility] Chloride 105 97 - 110 mmol/L [facility] CO2 26 22 - 32 mmol/L [facility] Anion gap 6 2 - 15 mmol/L [facility] BUN 17 6 - 25 mg/dL [facility] Creatinine 0.79 0.60 - 1.10 mg/dL [facility] Glucose 121 70 - 199 mg/dL [facility] Comment: Interpretive Data Fasting glucose >/= [...] 2022. Calcium 8.0(L) 8.5 - 10.3 mg/dL [facility] Phosphorus, pl 3.5 2.3 - 4.5 mg/dL [facility] Albumin 2.4(L) 3.5 - 5.0 g/dL [facility] Blood 12/05/2023 9:24 PM CDT 12/05/2023 10:45 PM CDT us Álvaro Radford MD LAB BLOOD ORDERABLES Final Result [facility] Department [place] [address] * (ABNORMAL) CBC with auto differential (12/05/2023 9:24 PM CDT) Pathologist [facility] [place] WBC 12.0(H) 3.8 - 9.9 K/cumm Hgb 7.8(L) 11.9 - 15.5 g/dL [facility] Hct 26.0(L) 35.6 - 45.5 % [facility] Plt 446(H) 150 - 400 K/cumm [facility] MPV 8.9(L) 9.1 - 12.3 fL [facility] RBC 3.09(L) 3.90 - 5.20 M/cumm [facility] MCV 84.1 81.3 - 96.4 fL [facility] MCH 25.2(L) 27.1 - 33.3 pg [facility] MCHC 30.0(L) 32.3 - 35.7 g/dL [facility] RDW CV 18.7(H) 11.1 - 14.9 % [facility] RDW SD 57.4(H) 35.7 - 48.1 fL [facility] NRBC abs 0.00 0.00 - 0.01 K/cumm [facility] Blood 12/05/2023 9:24 PM CDT 12/05/2023 10:44 PM CDT us Maxime Lee MD LAB BLOOD ORDERABLES Final R esult Performing Organization Address City/[facility]/ZIP Co de Phone Number [facility] Department [place] [employer] [place] [address] * POCT glucose (12/05/2023 8:16 PM CDT) [facility] Signature Glucose, POC 151 70 - 199 mg/dL Blood 12/05/2023 8:16 PM CDT 12/05/2023 8:16 PM CDT us Álvaro Radford MD LAB POCT ORDERABLES - DEVIC E Final Result Performing Organization Address [facility]/ZIP Co de Phone Number [facility] [place] [address] * POCT glucose (12/05/2023 4:45 PM CDT) [facility] Glucose, POC 104 70 - 199 mg/dL Blood 12/05/2023 4:45 PM CDT 12/05/2023 4:45 PM CDT Álvaro Radford MD LAB POCT ORDERABLES - DEVIC E Final Result Performing Organization Address City/[facility] Co de Phone Number [facility] [place] [address] * (ABNORMAL) POCT glucose (12/05/2023 11:44 AM CDT) [facility] Glucose, POC 205(H) 70 - 199 mg/dL Blood 12/05/2023 11:4 4 AM CDT 12/05/2023 11:44 AM CDT Álvaro Radford MD LAB POCT ORDERABLES - DEVIC E Final Result Performing Organization Address City/[facility] de Phone Number [facility] [employer] [place] [address] * (ABNORMAL) Differential, auto (12/05/2023 11:09 AM CDT) [facility] Neutrophil abs 9.3(H) 1.5 - 6.5 K/cumm Imm gran abs 0.1 0.0 - 0.1 K/cumm [facility] Lymphocyte abs 1.7 0.8 - 3.3 K/cumm [facility] Monocyte abs 1.0(H) 0.2 - 0.8 K/cumm [facility] Eosinophil abs 0.2 0.0 - 0.5 K/cumm [facility] Basophil abs 0.1 0.0 - 0.1 K/cumm [facility] Neutrophil pct 75.4 % [facility] Comment: Interpretive Data Percent cell count reference ranges are not reported, since discordance with absolute values may lead to misinterpretation of CBC data. Current Interpretive Data was last revised on 2017. Imm gran pct 0.5 % [facility] Comment: Interpretive Data Percent cell count reference ranges are not reported, since discordance with absolute values may lead to misinterpretation of CBC data. Current Interpretive Data was last revised on 2017. Lymphocyte pct 14.1 % [facility] Comment: Interpretive Data Percent cell count reference ranges are not reported, since discordance with absolute values may lead to misinterpretation of CBC data. Current Interpretive Data was last revised on 2017. Monocyte pct 7.8 % [facility] Comment: Interpretive Data Percent cell count reference ranges are not reported, since discordance with absolute values may lead to misinterpretation of CBC data. Current Interpretive Data was last revised on 2017. Eosinophil pct 1.4 % [facility] Comment: Interpretive Data Percent cell count reference ranges are not reported, since discordance with absolute values may lead to misinterpretation of CBC data. Current Interpretive Data was last revised on 2017. Basophil pct 0.8 % [facility] Comment: Interpretive Data Percent cell count reference ranges are not reported, since discordance with absolute values may lead to misinterpretation of CBC data. Current Interpretive Data was last revised on 2017. Blood 12/05/2023 11:0 9 AM CDT 12/05/2023 11:27 AM CDT us Álvaro Radford MD LAB BLOOD ORDERABLES Final Result [facility] Department [place] [address] * (ABNORMAL) CBC with auto differential (12/05/2023 11:09 AM CDT) WBC 12.3(H) 3.8 - 9.9 K/cumm Hgb 7.6(L) 11.9 - 15.5 g/dL [facility] Hct 25.5(L) 35.6 - 45.5 % [facility] Plt 463(H) 150 - 400 K/cumm [facility] MPV 8.9(L) 9.1 - 12.3 fL [facility] RBC 2.99(L) 3.90 - 5.20 M/cumm [facility] MCV 85.3 81.3 - 96.4 fL [facility] MCH 25.4(L) 27.1 - 33.3 pg [facility] MCHC 29.8(L) 32.3 - 35.7 g/dL [facility] RDW CV 18.6(H) 11.1 - 14.9 % [facility] RDW SD 57.7(H) 35.7 - 48.1 fL [facility] NRBC abs 0.00 0.00 - 0.01 K/cumm [facility] Blood 12/05/2023 11:0 9 AM CDT 12/05/2023 11:27 AM CDT Álvaro Radford MD LAB BLOOD ORDERABLES Final Result Performing Organization Address [facility] de Phone Number [facility] Department [place] [address] * (ABNORMAL) Troponin I high-sensitivity 2-hour (12/05/2023 11:09 AM CDT) Trop I hs 373(C) <=17 ng/L Comment: Previous critical value noted within 48 hours ago. Interpretive Data For further [facility] resources including the diagnostic algorithm and an aid in interpretation, copy and paste this link: https://bjhlab.testcatalog.org/show/hsTrop-1 Current Interpretive Data last revised 2019. Trop I hs pct delta -27(C) % [facility] Comment:Previous critical va lue noted within 48 hours ago. Trop I hs interp Significa nt(C) [facility] Comment:Previous critical va lue noted within 48 hours ago. Blood 12/05/2023 11:0 9 AM CDT 12/05/2023 11:27 AM CDT Álvaro Radford MD LAB BLOOD ORDERABLES Final Result Performing Organization Address [facility] de Phone Number [facility] Department [place] [address] * (ABNORMAL) Troponin I high-sensitivity series (baseline, 2hr, 4hr, 6hr) (12/05/2023 8:56 AM CDT) [facility] Trop I hs 509(C) <=17 ng/L Comment: Previous critical value noted within 48 hours ago. Interpretive Data For further hscTnI resources including the diagnostic algorithm and an aid in interpretation, copy and paste this link: https://bjhlab.testcatalog.org/show/hsTrop-1 Current Interpretive Data last revised 2019. Blood 12/05/2023 8:56 AM CDT 12/05/2023 9:18 AM CDT Álvaro Radford MD LAB BLOOD ORDERABLES Final Result Performing Organization Address [facility] de Phone Number [facility] Department [place] [address] * POCT glucose (12/05/2023 8:02 AM CDT) [facility] Glucose, POC 148 70 - 199 mg/dL Blood 12/05/2023 8:02 AM CDT 12/05/2023 8:02 AM CDT Álvaro Radford MD LAB POCT ORDERABLES - DEVIC E Final Result Performing Organization Address [facility] [place] [address] * eGFR (12/04/2023 10:19 PM CDT) [facility] eGFR 81 >=60 mL/min/1. 73 m2 Comment: [...] BLOOD ORDERABLES Final Result Performing Organization Address [facility] Co de Phone Number [facility] Department [place] [employer] [place] [address] * Magnesium (12/04/2023 10:19 PM CDT) [facility] Magnesium 2.0 1.4 - 2.5 mg/dL Blood 12/04/2023 10:1 9 PM CDT 12/04/2023 10:34 PM CDT Álvaro Radford MD LAB BLOOD ORDERABLES Final Result Performing Organization Address [facility] Co de Phone Number [facility] [place] [address] * (ABNORMAL) Basic metabolic panel (12/04/2023 10:19 PM CDT) Sodium 137 135 - 145 mmol/L Potassium, pl 4.2 3.3 - 4.9 mmol/L [facility] Chloride 105 97 - 110 mmol/L [facility] CO2 22 22 - 32 mmol/L [facility] Anion gap 10 2 - 15 mmol/L [facility] BUN 18 6 - 25 mg/dL [facility] Creatinine 0.81 0.60 - 1.10 mg/dL [facility] Glucose 197 70 - 199 mg/dL [facility] Comment: Interpretive Data Fasting glucose >/= [...] 2022. Calcium 8.1(L) 8.5 - 10.3 mg/dL [facility] Blood 12/04/2023 10:1 9 PM CDT 12/04/2023 10:34 PM CDT Álvaro Radford MD LAB BLOOD ORDERABLES Final Result [facility] Department [place] [address] * Type and screen (12/04/2023 10:19 PM CDT) ABO Rh O Positive Maira, indirect Negative [facility] Blood 12/04/2023 10:1 9 PM CDT 12/04/2023 10:33 PM CDT Narrative [facility] - 12/04/2023 11:33 PM CDT Has the patient had Daratumumab or Isatuximab in the past 6 months?->Unknown us Álvaro Radford MD LAB BLOOD BANK TEST ORDERAB LES Final Result Performing Organization Address [facility]/ZIP Co de Phone Number [facility] Department [place] [address] * (ABNORMAL) Troponin I high-sensitivity 6-hour (12/04/2023 10:19 PM CDT) Pathologist [facility] Trop I hs 1,176(C) <=17 ng/L Comment: Previous critical value noted within 48 hours ago. Interpretive Data For further hscTnI resources including the diagnostic algorithm and an aid in interpretation, copy and paste this link: https://bjhlab.testcatalog.org/show/hsTrop-1 Current Interpretive Data last revised 2019. Trop I hs delta 1,171(C) ng/L [facility] Comment:Previous critical va lue noted within 48 hours ago. Trop I hs interp Significa nt(C) [facility] Comment:Previous critical va lue noted within 48 hours ago. Blood 12/04/2023 10:1 9 PM CDT 12/04/2023 10:34 PM CDT Álvaro Radford MD LAB BLOOD ORDERABLES Final Result Performing Organization Address [facility] Co de Phone Number [facility] Department [place] [address] * (ABNORMAL) Differential, auto (12/04/2023 8:30 PM CDT) Pathologist [facility] [place] Neutrophil abs 22.2(H) 1.5 - 6.5 K/cumm Imm gran abs 0.2(H) 0.0 - 0.1 K/cumm [facility] Lymphocyte abs 0.7(L) 0.8 - 3.3 K/cumm [facility] Monocyte abs 1.1(H) 0.2 - 0.8 K/cumm [facility] Eosinophil abs 0.0 0.0 - 0.5 K/cumm [facility] Basophil abs 0.1 0.0 - 0.1 K/cumm [facility] Neutrophil pct 91.8 % [facility] Comment: Interpretive Data Percent cell count reference ranges are not reported, since discordance with absolute values may lead to misinterpretation of CBC data. Current Interpretive Data was last revised on 2017. Imm gran pct 0.7 % [facility] Comment: Interpretive Data Percent cell count reference ranges are not reported, since discordance with absolute values may lead to misinterpretation of CBC data. Current Interpretive Data was last revised on 2017. Lymphocyte pct 2.8 % [facility] Comment: Interpretive Data Percent cell count reference ranges are not reported, since discordance with absolute values may lead to misinterpretation of CBC data. Current Interpretive Data was last revised on 2017. Monocyte pct 4.4 % [facility] Comment: Interpretive Data Percent cell count reference ranges are not reported, since discordance with absolute values may lead to misinterpretation of CBC data. Current Interpretive Data was last revised on 2017. Eosinophil pct 0.1 % [facility] Comment: Interpretive Data Percent cell count reference ranges are not reported, since discordance with absolute values may lead to misinterpretation of CBC data. Current Interpretive Data was last revised on 2017. Basophil pct 0.2 % [facility] Comment: Interpretive Data Percent cell count reference ranges are not reported, since discordance with absolute values may lead to misinterpretation of CBC data. Current Interpretive Data was last revised on 2017. Blood 12/04/2023 8:30 PM CDT 12/04/2023 5:34 PM CDT us Maxime Lee MD LAB BLOOD ORDERABLES Final R esult [facility] Department [place] [address] * (ABNORMAL) CBC with auto differential (12/04/2023 8:30 PM CDT) WBC 24.2(H) 3.8 - 9.9 K/cumm Hgb 7.6(L) 11.9 - 15.5 g/dL [facility] Hct 25.3(L) 35.6 - 45.5 % [facility] Plt 483(H) 150 - 400 K/cumm [facility] MPV 8.6(L) 9.1 - 12.3 fL [facility] RBC 2.94(L) 3.90 - 5.20 M/cumm [facility] MCV 86.1 81.3 - 96.4 fL [facility] MCH 25.9(L) 27.1 - 33.3 pg [facility] MCHC 30.0(L) 32.3 - 35.7 g/dL [facility] RDW CV 18.4(H) 11.1 - 14.9 % [facility] RDW SD 58.1(H) 35.7 - 48.1 fL [facility] NRBC abs 0.00 0.00 - 0.01 K/cumm [facility] Blood 12/04/2023 8:30 PM CDT 12/04/2023 5:34 PM CDT us Maxime Lee MD LAB BLOOD ORDERABLES Final R esult [facility] Department [place] [address] * (ABNORMAL) Troponin I high-sensitivity 4-hour (12/04/2023 8:14 PM CDT) Trop I hs 1,061(C) <=17 ng/L Comment: Previous critical value noted within 48 hours ago. Interpretive Data For further hscTnI resources including the diagnostic algorithm and an aid in interpretation, copy and paste this link: https://bjhlab.testcatalog.org/show/hsTrop-1 Current Interpretive Data last revised 2019. Trop I hs delta 1,056(C) ng/L [facility] Trop I hs interp Significa nt(C) [facility] Blood 12/04/2023 8:14 PM CDT 12/04/2023 8:26 PM CDT Álvaro Radford MD LAB BLOOD ORDERABLES Final Result Performing Organization Address [facility] de Phone Number [facility] [employer] [place] [address] * (ABNORMAL) POCT glucose (12/04/2023 7:55 PM CDT) Pathologist [facility] [place] Glucose, POC 226(H) 70 - 199 mg/dL Blood 12/04/2023 7:55 PM CDT 12/04/2023 7:55 PM CDT Álvaro Radford MD LAB POCT ORDERABLES - DEVIC E Final Result Performing Organization Address [facility] de Phone Number [facility] [place] [address] * Critical result callback Cardio chemistry (12/04/2023 5:58 PM CDT) Pathologist [facility] [place] Date Notified [id number] Time Notified [facility] Test name Trop I hs 2hr [facility] Called/Read Back [facility] Credentials RN [facility] Called By DVB [facility] Blood 12/04/2023 5:58 PM CDT 12/04/2023 6:10 PM CDT Álvaro Radford MD LAB BLOOD ORDERABLES Final Result Performing Organization Address [facility] Co de Phone Number [facility] Department [place] [address] * eGFR (12/04/2023 5:58 PM CDT) Pathologist [facility] [place] eGFR 79 >=60 mL/min/1. 73 m2 Comment: [...] Radford MD LAB BLOOD ORDERABLES Final Result [facility] Department [place] [address] * (ABNORMAL) Differential, auto (12/04/2023 5:58 PM CDT) Neutrophil abs 21.7(H) 1.5 - 6.5 K/cumm Imm gran abs 0.2(H) 0.0 - 0.1 K/cumm [facility] Lymphocyte abs 0.7(L) 0.8 - 3.3 K/cumm [facility] Monocyte abs 1.2(H) 0.2 - 0.8 K/cumm [facility] Eosinophil abs 0.0 0.0 - 0.5 K/cumm [facility] Basophil abs 0.1 0.0 - 0.1 K/cumm [facility] Neutrophil pct 90.7 % [facility] Comment: Interpretive Data Percent cell count reference ranges are not reported, since discordance with absolute values may lead to misinterpretation of CBC data. Current Interpretive Data was last revised on 2017. Imm gran pct 1.0 % [facility] Comment: Interpretive Data Percent cell count reference ranges are not reported, since discordance with absolute values may lead to misinterpretation of CBC data. Current Interpretive Data was last revised on 2017. Lymphocyte pct 2.9 % [facility] Comment: Interpretive Data Percent cell count reference ranges are not reported, since discordance with absolute values may lead to misinterpretation of CBC data. Current Interpretive Data was last revised on 2017. Monocyte pct 5.0 % [facility] Comment: Interpretive Data Percent cell count reference ranges are not reported, since discordance with absolute values may lead to misinterpretation of CBC data. Current Interpretive Data was last revised on 2017. Eosinophil pct 0.1 % [facility] Comment: Interpretive Data Percent cell count reference ranges are not reported, since discordance with absolute values may lead to misinterpretation of CBC data. Current Interpretive Data was last revised on 2017. Basophil pct 0.3 % [facility] Comment: Interpretive Data Percent cell count reference ranges are not reported, since discordance with absolute values may lead to misinterpretation of CBC data. Current Interpretive Data was last revised on 2017. Blood 12/04/2023 5:58 PM CDT 12/04/2023 6:10 PM CDT us Álvaro Radford MD LAB BLOOD ORDERABLES Final Result [facility] Department [place] [address] * Lactate (12/04/2023 5:58 PM CDT) Lactate 1.9 0.7 - 2.0 mmol/L Blood 12/04/2023 5:58 PM CDT 12/04/2023 6:10 PM CDT Álvaro Radford MD LAB BLOOD ORDERABLES Final Result [facility] Department [place] [address] * (ABNORMAL) CBC with auto differential (12/04/2023 5:58 PM CDT) [facility] WBC 23.9(H) 3.8 - 9.9 K/cumm Hgb 7.3(L) 11.9 - 15.5 g/dL [facility] Hct 24.4(L) 35.6 - 45.5 % [facility] Plt 477(H) 150 - 400 K/cumm [facility] MPV 8.5(L) 9.1 - 12.3 fL [facility] RBC 2.89(L) 3.90 - 5.20 M/cumm [facility] MCV 84.4 81.3 - 96.4 fL [facility] MCH 25.3(L) 27.1 - 33.3 pg [facility] MCHC 29.9(L) 32.3 - 35.7 g/dL [facility] RDW CV 18.4(H) 11.1 - 14.9 % [facility] RDW SD 55.9(H) 35.7 - 48.1 fL [facility] NRBC abs 0.00 0.00 - 0.01 K/cumm [facility] Blood 12/04/2023 5:58 PM CDT 12/04/2023 6:10 PM CDT Álvaro Radford MD LAB BLOOD ORDERABLES Final Result [facility] Department [place] [address] * (ABNORMAL) Troponin I high-sensitivity 2-hour (12/04/2023 5:58 PM CDT) [facility] Trop I hs 770(C) <=17 ng/L Comment: Interpretive Data For further hscTnI resources including the diagnostic algorithm and an aid in interpretation, copy and paste this link: https://bjhlab.testcatalog.org/show/hsTrop-1 Current Interpretive Data last revised 2019. Trop I hs delta 765(C) ng/L [facility] Trop I hs interp Significa nt(C) [facility] Blood 12/04/2023 5:58 PM CDT 12/04/2023 6:10 PM CDT us Álvaro Radford MD LAB BLOOD ORDERABLES Final Result [facility] Department [place] [address] * (ABNORMAL) Renal function panel (12/04/2023 5:58 PM CDT) Sodium 136 135 - 145 mmol/L Potassium, pl 4.3 3.3 - 4.9 mmol/L [facility] Chloride 105 97 - 110 mmol/L [facility] CO2 24 22 - 32 mmol/L [facility] Anion gap 7 2 - 15 mmol/L [facility] BUN 19 6 - 25 mg/dL [facility] Creatinine 0.82 0.60 - 1.10 mg/dL [facility] Glucose 197 70 - 199 mg/dL [facility] Comment: Interpretive Data Fasting glucose >/= [...] 2022. Calcium 8.0(L) 8.5 - 10.3 mg/dL [facility] Phosphorus, pl 2.9 2.3 - 4.5 mg/dL [facility] Albumin 2.4(L) 3.5 - 5.0 g/dL [facility] Blood 12/04/2023 5:58 PM CDT 12/04/2023 6:10 PM CDT Álvaro Radford MD LAB BLOOD ORDERABLES Final Result [facility] Department [place] [address] * Blood culture Blood (12/04/2023 5:25 PM CDT) Report Final Report: No growth Blood 12/04/2023 5:25 PM CDT 12/04/2023 5:37 PM CDT Narrative [facility] - 12/09/2023 7:00 AM CDT Collection->Peripheral 1. [...] organism identification may be performed using the [employer] Gram-Positive Blood Culture Assay. This assay detects microbial DNA in positive blood culture broth via hybridization of target DNA to capture oligonucleotides on a microarray. This assay has been cleared by the [place] Food and Drug Administration and its performance characteristics have been verified by the [facility] Microbiology Laboratory. 5. ?For questions about this culture, contact the Microbiology Laboratory at [phone]. Interpretive data was last revised on 2019. us Álvaro Radford MD LAB MICROBIOLOGY - GENERAL ORDERABLES Final Result [facility] Department [place] [address] * (ABNORMAL) Lipid panel (12/04/2023 5:24 PM [...] revised on 2017. HDL 27(L) >=40 mg/dL [facility] Comment: Interpretive Data Ages < or [...] on 2017. LDL, calculated 28 <=129 mg/dL [facility] Comment: Interpretive Data Ages < or [...] revised on 2023. Non-HDL Cholesterol 44 mg/dL [facility] Comment: Interpretive Data Ages < or [...] last revised on 2017. Chol/HDL ratio 3 [facility] Blood 12/04/2023 5:24 PM CDT 12/04/2023 5:34 PM CDT Narrative [facility] - 12/04/2023 7:03 PM CDT This lipid panel was automatically ordered due to a significant change in Troponin. The dietary status of the patient at the collection time should be correlated with the lipid results. us Álvaro Radford MD LAB BLOOD ORDERABLES Final Result [facility] Department [place] [address] * eGFR (12/04/2023 5:24 PM CDT) eGFR [...] BLOOD ORDERABLES Final Result Performing Organization Address City/[facility] Co de Phone Number [facility] Department of [employer] [place] [address] * Magnesium (12/04/2023 5:24 PM CDT) [facility] Magnesium 2.5 1.4 - 2.5 mg/dL Blood 12/04/2023 5:24 PM CDT 12/04/2023 5:34 PM CDT Álvaro Radford MD LAB BLOOD ORDERABLES Final Result Performing Organization Address City/[facility]/ZIP Co de Phone Number [facility] Department of [employer] [place] [address] * (ABNORMAL) Comprehensive metabolic panel (12/04/2023 5:24 PM CDT) Pathologist [facility] [place] Sodium 135 135 - 145 mmol/L Potassium, pl 4.4 3.3 - 4.9 mmol/L [facility] Chloride 102 97 - 110 mmol/L [facility] CO2 23 22 - 32 mmol/L [facility] Anion gap 10 2 - 15 mmol/L [facility] BUN 18 6 - 25 mg/dL [facility] Creatinine 0.83 0.60 - 1.10 mg/dL [facility] Glucose 186 70 - 199 mg/dL [facility] Comment: Interpretive Data Fasting glucose >/= [...] 2022. Calcium 8.1(L) 8.5 - 10.3 mg/dL [facility] Bilirubin, total 0.3 0.1 - 1.2 mg/dL [facility] Protein, pl 6.8 6.5 - 8.5 g/dL [facility] Albumin 2.5(L) 3.5 - 5.0 g/dL [facility] Alk phos 82 40 - 130 Units/L [facility] ALT 8 7 - 45 Units/L [facility] AST 22 10 - 45 Units/L [facility] Blood 12/04/2023 5:24 PM CDT 12/04/2023 5:34 PM CDT us Álvaro Radford MD LAB BLOOD ORDERABLES Final Result [facility] Department [place] [address] * POCT lactate (12/04/2023 5:19 PM CDT) [facility] Lactate POC i-STAT 1.7 0.7 - 2.2 mmol/L Blood 12/04/2023 5:19 PM CDT 12/04/2023 5:19 PM CDT us Álvaro Radford MD LAB POCT ORDERABLES - DEVIC E Final Result [facility] Department [place] [address] * XR Chest 1 View (12/04/2023 4:55 [...] Lymphocyte abs 4.0(H) 0.8 - 3.3 K/cumm [facility] Monocyte abs 0.6 0.2 - 0.8 K/cumm [facility] Eosinophil abs 0.1 0.0 - 0.5 K/cumm [facility] Basophil abs 0.1 0.0 - 0.1 K/cumm [facility] Neutrophil pct 79.6 % [facility] Comment: Interpretive Data Percent cell count reference ranges are not reported, since discordance with absolute values may lead to misinterpretation of CBC data. Current Interpretive Data was last revised on 2017. Imm gran pct 0.6 % [facility] Comment: Interpretive Data Percent cell count reference ranges are not reported, since discordance with absolute values may lead to misinterpretation of CBC data. Current Interpretive Data was last revised on 2017. Lymphocyte pct 16.6 % [facility] Comment: Interpretive Data Percent cell count reference ranges are not reported, since discordance with absolute values may lead to misinterpretation of CBC data. Current Interpretive Data was last revised on 2017. Monocyte pct 2.5 % [facility] Comment: Interpretive Data Percent cell count reference ranges are not reported, since discordance with absolute values may lead to misinterpretation of CBC data. Current Interpretive Data was last revised on 2017. Eosinophil pct 0.3 % [facility] Comment: Interpretive Data Percent cell count reference ranges are not reported, since discordance with absolute values may lead to misinterpretation of CBC data. Current Interpretive Data was last revised on 2017. Basophil pct 0.4 % [facility] Comment: Interpretive Data Percent cell count reference ranges are not reported, since discordance with absolute values may lead to misinterpretation of CBC data. Current Interpretive Data was last revised on 2017. Blood 12/04/2023 4:02 PM CDT 12/04/2023 4:26 PM CDT Álvaro Radford MD LAB BLOOD ORDERABLES Final Result [facility] Department [place] [address] * (ABNORMAL) CBC with auto differential (12/04/2023 4:02 PM CDT) [facility] WBC 24.1(H) 3.8 - 9.9 K/cumm Hgb 9.8(L) 11.9 - 15.5 g/dL [facility] Hct 33.2(L) 35.6 - 45.5 % [facility] Plt 760(H) 150 - 400 K/cumm [facility] MPV 9.3 9.1 - 12.3 fL [facility] RBC 3.87(L) 3.90 - 5.20 M/cumm [facility] MCV 85.8 81.3 - 96.4 fL [facility] MCH 25.3(L) 27.1 - 33.3 pg [facility] MCHC 29.5(L) 32.3 - 35.7 g/dL [facility] RDW CV 18.6(H) 11.1 - 14.9 % [facility] RDW SD 58.0(H) 35.7 - 48.1 fL [facility] NRBC abs 0.00 0.00 - 0.01 K/cumm [facility] Blood 12/04/2023 4:02 PM CDT 12/04/2023 4:26 PM CDT Álvaro Radford MD LAB BLOOD ORDERABLES Final Result [facility] [place] [address] * Troponin I high-sensitivity series (baseline, 2hr, 4hr, 6hr) (12/04/2023 4:02 PM CDT) [facility] Trop I hs 5 <=17 ng/L Comment: Interpretive Data For further hscTnI resources including the diagnostic algorithm and an aid in interpretation, copy and paste this link: [email or web address]://bjhlab.testcatalog.org/[email or web address] Current Interpretive Data last revised 2019. Blood 12/04/2023 4:02 PM CDT 12/04/2023 4:26 PM CDT Álvaro Radford MD LAB BLOOD ORDERABLES Final Result Performing Organization Address [facility] Co de Phone Number [facility] [place] [employer] [place] [address] * Lipase (12/04/2023 4:01 PM CDT) Lipase 87 10 - 99 Units/L Blood 12/04/2023 4:01 PM CDT 12/04/2023 4:26 PM CDT Álvaro Radford MD LAB BLOOD ORDERABLES Final Result Performing Organization Address [facility] de Phone Number [facility] [place] [employer] [place] [address] * eGFR (12/04/2023 4:01 PM CDT) eGFR [...] BLOOD ORDERABLES Final Result Performing Organization Address [facility] de Phone Number [facility] [place] [employer] [place] [address] * (ABNORMAL) Blood gas, venous (12/04/2023 4:01 PM CDT) pH, Venous 7.30(L) 7.32 - 7.43 PCO2, Venous 48 40 - 50 mmHg [facility] PO2, Venous 35 mmHg [facility] Comment: Interpretive Data No Reference Range Established Current Interpretive Data was last revised on 2017. HCO3 Venous, Calculated 25 20 - 30 mmol/L [facility] BE, venous -3 mmol/L [facility] Comment: Interpretive Data No Reference Range Established Current Interpretive Data was last revised on 2017. Blood 12/04/2023 4:01 PM CDT 12/04/2023 4:18 PM CDT Álvaro Radford MD LAB BLOOD ORDERABLES Final Result Performing Organization Address [facility] Co de Phone Number [facility] [employer] [place] [address] * (ABNORMAL) Comprehensive metabolic panel (12/04/2023 4:01 PM CDT) Sodium 136 135 - 145 mmol/L Potassium, pl 4.9 3.3 - 4.9 mmol/L [facility] Comment:Hemolyzed; Potassium value may be falsely elevated by as much as 0.3-0.5 mmol/L. Suggest redraw and reanalysis. Chloride 100 97 - 110 mmol/L [facility] CO2 22 22 - 32 mmol/L [facility] Anion gap 14 2 - 15 mmol/L [facility] BUN 19 6 - 25 mg/dL [facility] Creatinine 0.86 0.60 - 1.10 mg/dL [facility] Glucose 188 70 - 199 mg/dL [facility] Comment: Interpretive Data Fasting glucose >/= [...] 2022. Calcium 9.1 8.5 - 10.3 mg/dL [facility] Bilirubin, total 0.3 0.1 - 1.2 mg/dL [facility] Protein, pl 8.4 6.5 - 8.5 g/dL [facility] Albumin 3.0(L) 3.5 - 5.0 g/dL [facility] Alk phos 102 40 - 130 Units/L [facility] ALT 11 7 - 45 Units/L [facility] AST 35 10 - 45 Units/L [facility] Comment:Hemolyzed; result ma y be falsely elevated Blood 12/04/2023 4:01 PM CDT 12/04/2023 4:26 PM CDT us Álvaro Radford MD LAB BLOOD ORDERABLES Final Result [facility] Department [place] [address] * Blood culture Blood (12/04/2023 4:01 PM CDT) Report Final Report: No growth Blood 12/04/2023 4:01 PM CDT 12/04/2023 4:46 PM CDT Narrative [facility] - 12/09/2023 7:00 AM CDT From a [...] organism identification may be performed using the [employer] Gram-Positive Blood Culture Assay. This assay detects microbial DNA in positive blood culture broth via hybridization of target DNA to capture oligonucleotides on a microarray. This assay has been cleared by the [place] Food and Drug Administration and its performance characteristics have been verified by the [facility] Microbiology Laboratory. 5. ?For questions about this culture, contact the Microbiology Laboratory at [phone]. Interpretive data was last revised on 2019. us Álvaro Radford MD LAB MICROBIOLOGY - GENERAL ORDERABLES Final Result [facility] Department [place] [address] * POCT glucose (12/04/2023 3:30 PM CDT) Glucose, POC 192 70 - 199 mg/dL Blood 12/04/2023 3:30 PM CDT 12/04/2023 3:30 PM CDT Álvaro Radford MD LAB POCT ORDERABLES - DEVIC E Final Result Performing Organization Address [facility] Co de Phone Number [facility] Department [place] [address] * POCT glucose (12/04/2023 11:36 AM CDT) Glucose, POC 146 70 - 199 mg/dL Blood 12/04/2023 11:3 6 AM CDT 12/04/2023 11:36 AM CDT Álvaro Radford MD LAB POCT ORDERABLES - DEVIC E Final Result Performing Organization Address [facility] de Phone Number [facility] Department [place] [address] * PET/CT FDG Skull to Thigh (12/04/2023 [...] FDG-PET/CT IMAGING DATE OF STUDY: ??12/04/2023 SCANNER: [employer] (NV1). ??This is a high-resolution scanner, which [...] obtained. ??The study was interpreted on the [employer] workstation. ??The mean liver SUV (reported for quality improvement consultant purposes) is 1.5 The total scanned area [...] FDG-PET/CT IMAGING DATE OF STUDY: 12/04/2023 SCANNER: [facility] [employer] (NV1). This is a high-resolution scanner, which [...] obtained. The study was interpreted on the [employer] workstation. The mean liver SUV (reported for quality improvement consultant purposes) is 1.5 The total scanned area [...] 4:02 AM CDT 12/04/2023 4:02 AM CDT us Álvaro Radford MD LAB POCT ORDERABLES - DEVIC E Final Result [facility] Department [place] [address] * (ABNORMAL) Differential, auto (12/04/2023 12:19 AM CDT) Neutrophil abs 8.9(H) 1.5 - 6.5 K/cumm Imm gran abs 0.1 0.0 - 0.1 K/cumm [facility] Lymphocyte abs 2.3 0.8 - 3.3 K[facility]cumm [facility] Monocyte abs 1.0(H) 0.2 - 0.8 K/cumm [facility] Eosinophil abs 0.2 0.0 - 0.5 K/cumm [facility] Basophil abs 0.1 0.0 - 0.1 K/cumm [facility] Neutrophil pct 70.8 % [facility] Comment: Interpretive Data Percent cell count reference ranges are not reported, since discordance with absolute values may lead to misinterpretation of CBC data. Current Interpretive Data was last revised on 2017. Imm gran pct 0.8 % [facility] Comment: Interpretive Data Percent cell count reference ranges are not reported, since discordance with absolute values may lead to misinterpretation of CBC data. Current Interpretive Data was last revised on 2017. Lymphocyte pct 18.0 % [facility] Comment: Interpretive Data Percent cell count reference ranges are not reported, since discordance with absolute values may lead to misinterpretation of CBC data. Current Interpretive Data was last revised on 2017. Monocyte pct 8.2 % [facility] Comment: Interpretive Data Percent cell count reference ranges are not reported, since discordance with absolute values may lead to misinterpretation of CBC data. Current Interpretive Data was last revised on 2017. Eosinophil pct 1.6 % [facility] Comment: Interpretive Data Percent cell count reference ranges are not reported, since discordance with absolute values may lead to misinterpretation of CBC data. Current Interpretive Data was last revised on 2017. Basophil pct 0.6 % [facility] Comment: Interpretive Data Percent cell count reference ranges are not reported, since discordance with absolute values may lead to misinterpretation of CBC data. Current Interpretive Data was last revised on 2017. Blood 12/04/2023 12:1 9 AM CDT 12/04/2023 1:01 AM CDT us Maxime Lee MD LAB BLOOD ORDERABLES Final R esult [facility] Department [place] [address] * (ABNORMAL) CBC with auto differential (12/04/2023 12:19 AM CDT) WBC 12.6(H) 3.8 - 9.9 K/cumm Hgb 7.9(L) 11.9 - 15.5 g/dL [facility] Hct 25.9(L) 35.6 - 45.5 % [facility] Plt 478(H) 150 - 400 K/cumm [facility] MPV 8.9(L) 9.1 - 12.3 fL [facility] RBC 3.12(L) 3.90 - 5.20 M/cumm [facility] MCV 83.0 81.3 - 96.4 fL [facility] MCH 25.3(L) 27.1 - 33.3 pg [facility] MCHC 30.5(L) 32.3 - 35.7 g/dL [facility] RDW CV 18.4(H) 11.1 - 14.9 % [facility] RDW SD 55.4(H) 35.7 - 48.1 fL [facility] NRBC abs 0.00 0.00 - 0.01 K/cumm [facility] Blood 12/04/2023 12:1 9 AM CDT 12/04/2023 1:01 AM CDT us Maxime R. Jesus MD LAB BLOOD ORDERABLES Final R esult Performing Organization Address [facility] Co de Phone Number [facility] [employer] [place] [address] * POCT glucose (12/03/2023 8:52 PM CDT) Glucose, POC 166 70 - 199 mg/dL Blood 12/03/2023 8:52 PM CDT 12/03/2023 8:52 PM CDT us Álvaro Radford MD LAB POCT ORDERABLES - DEVIC E Final Result Performing Organization Address [facility] de Phone Number [facility] [employer] [place] [address] * POCT glucose (12/03/2023 4:55 PM CDT) Glucose, POC 146 70 - 199 mg/dL Blood 12/03/2023 4:55 PM CDT 12/03/2023 4:55 PM CDT us Álvaro Radford MD LAB POCT ORDERABLES - DEVIC E Final Result Performing Organization Address [facility] de Phone Number [facility] [place] [employer] [place] [address] * (ABNORMAL) POCT glucose (12/03/2023 11:28 AM CDT) Glucose, POC 244(H) 70 - 199 mg/dL Blood 12/03/2023 11:2 8 AM CDT 12/03/2023 11:28 AM CDT us Álvaro Radford MD LAB POCT ORDERABLES - DEVIC E Final Result Performing Organization Address [facility] Co de Phone Number [facility] Department [place] [address] * POCT glucose (12/03/2023 8:48 AM CDT) Glucose, POC 145 70 - 199 mg/dL Blood 12/03/2023 8:48 AM CDT 12/03/2023 8:48 AM CDT Álvaro Radford MD LAB POCT ORDERABLES - DEVIC E Final Result [facility] Department [place] [address] * eGFR (12/03/2023 12:09 AM CDT) eGFR [...] MD LAB BLOOD ORDERABLES Final Resul t [facility] Department [place] [address] * (ABNORMAL) Differential, auto (12/03/2023 12:09 AM CDT) Neutrophil abs 8.8(H) 1.5 - 6.5 K/cumm Imm gran abs 0.1 0.0 - 0.1 K/cumm [facility] Lymphocyte abs 2.5 0.8 - 3.3 K/cumm [facility] Monocyte abs 0.9(H) 0.2 - 0.8 K/cumm [facility] Eosinophil abs 0.2 0.0 - 0.5 K/cumm [facility] Basophil abs 0.1 0.0 - 0.1 K/cumm [facility] Neutrophil pct 70.1 % [facility] Comment: Interpretive Data Percent cell count reference ranges are not reported, since discordance with absolute values may lead to misinterpretation of CBC data. Current Interpretive Data was last revised on 2017. Imm gran pct 0.6 % [facility] Comment: Interpretive Data Percent cell count reference ranges are not reported, since discordance with absolute values may lead to misinterpretation of CBC data. Current Interpretive Data was last revised on 2017. Lymphocyte pct 20.1 % [facility] Comment: Interpretive Data Percent cell count reference ranges are not reported, since discordance with absolute values may lead to misinterpretation of CBC data. Current Interpretive Data was last revised on 2017. Monocyte pct 7.2 % [facility] Comment: Interpretive Data Percent cell count reference ranges are not reported, since discordance with absolute values may lead to misinterpretation of CBC data. Current Interpretive Data was last revised on 2017. Eosinophil pct 1.4 % [facility] Comment: Interpretive Data Percent cell count reference ranges are not reported, since discordance with absolute values may lead to misinterpretation of CBC data. Current Interpretive Data was last revised on 2017. Basophil pct 0.6 % [facility] Comment: Interpretive Data Percent cell count reference ranges are not reported, since discordance with absolute values may lead to misinterpretation of CBC data. Current Interpretive Data was last revised on 2017. Blood 12/03/2023 12:0 9 AM CDT 12/03/2023 12:27 AM CDT us Maxime Lee MD LAB BLOOD ORDERABLES Final R esult Performing Organization Address [facility] Co de Phone Number [facility] [place] [address] * Folate (12/03/2023 12:09 AM CDT) Folic acid 18.0 >=5.0 ng/mL Blood 12/03/2023 12:0 9 AM CDT 12/03/2023 12:27 AM CDT us Álvaro Radford MD LAB BLOOD ORDERABLES Final Result Performing Organization Address [facility] de Phone Number [facility] [place] [address] * Vitamin B12 (12/03/2023 12:09 AM CDT) Vitamin B12 1,114 230 - 1,250 pg/mL Blood 12/03/2023 12:0 9 AM CDT 12/03/2023 12:27 AM CDT Álvaro Radford MD LAB BLOOD ORDERABLES Final Result Performing Organization Address [facility] Co de Phone Number [facility] [employer] [place] [address] * (ABNORMAL) Renal function panel (12/03/2023 12:09 AM CDT) Sodium 134(L) 135 - 145 mmol/L Potassium, pl 4.3 3.3 - 4.9 mmol/L [facility] Chloride 100 97 - 110 mmol/L [facility] CO2 26 22 - 32 mmol/L [facility] Anion gap 8 2 - 15 mmol/L [facility] BUN 16 6 - 25 mg/dL [facility] Creatinine 0.77 0.60 - 1.10 mg/dL [facility] Glucose 140 70 - 199 mg/dL [facility] Comment: Interpretive Data Fasting glucose >/= [...] 2022. Calcium 8.6 8.5 - 10.3 mg/dL [facility] Phosphorus, pl 3.3 2.3 - 4.5 mg/dL [facility] Albumin 2.7(L) 3.5 - 5.0 g/dL [facility] Blood 12/03/2023 12:0 9 AM CDT 12/03/2023 12:27 AM CDT us Suhail Alfredo MD LAB BLOOD ORDERABLES Final Resul t [facility] Department [place] [address] * (ABNORMAL) CBC with auto differential (12/03/2023 12:09 AM CDT) Pathologist [facility] WBC 12.5(H) 3.8 - 9.9 K/cumm Hgb 8.3(L) 11.9 - 15.5 g/dL [facility] Hct 28.2(L) 35.6 - 45.5 % [facility] Plt 481(H) 150 - 400 K/cumm [facility] MPV 9.3 9.1 - 12.3 fL [facility] RBC 3.30(L) 3.90 - 5.20 M/cumm [facility] MCV 85.5 81.3 - 96.4 fL [facility] MCH 25.2(L) 27.1 - 33.3 pg [facility] MCHC 29.4(L) 32.3 - 35.7 g/dL [facility] RDW CV 18.4(H) 11.1 - 14.9 % [facility] RDW SD 57.8(H) 35.7 - 48.1 fL [facility] NRBC abs 0.00 0.00 - 0.01 K/cumm [facility] Blood 12/03/2023 12:0 9 AM CDT 12/03/2023 12:27 AM CDT us Maxime Lee MD LAB BLOOD ORDERABLES Final R esult Performing Organization Address [facility] Co de Phone Number [facility] Department [place] [address] * (ABNORMAL) POCT glucose (12/02/2023 8:47 PM CDT) Glucose, POC 216(H) 70 - 199 mg/dL Comment:Glu2: RN/MD Notified Glucose comment 1 Glu2: RN/MD Notified [facility] Blood 12/02/2023 8:47 PM CDT 12/02/2023 8:47 PM CDT us Álvaro Radford MD LAB POCT ORDERABLES - DEVIC E Final Result Performing Organization Address [facility]/ZIP Co de Phone Number [facility] Department [place] [address] * POCT glucose (12/02/2023 4:47 PM CDT) Glucose, POC 174 70 - 199 mg/dL Blood 12/02/2023 4:47 PM CDT 12/02/2023 4:47 PM CDT us Álvaro Radford MD LAB POCT ORDERABLES - DEVIC E Final Result Performing Organization Address [facility] Co de Phone Number [facility] [place] [address] * POCT glucose (12/02/2023 1:15 PM CDT) Glucose, POC 133 70 - 199 mg/dL Blood 12/02/2023 1:15 PM CDT 12/02/2023 1:15 PM CDT Álvaro Radford MD LAB POCT ORDERABLES - DEVIC E Final Result Performing Organization Address [facility] de Phone Number [facility] Department [place] [address] * POCT glucose (12/02/2023 12:07 PM CDT) Glucose, POC 196 70 - 199 mg/dL Blood 12/02/2023 12:0 7 PM CDT 12/02/2023 12:07 PM CDT Álvaro Radford MD LAB POCT ORDERABLES - DEVIC E Final Result Performing Organization Address [facility] de Phone Number [facility] [place] [address] * BLOOD MISC TO [place] (12/02/2023 9:42 AM CDT) Test name, chem SFUNG, Fungitell, Serum [facility] ref Lab Misc See Comment [facility] Comment:Credited, test not i ndicated. Blood 12/02/2023 9:42 AM CDT 12/03/2023 11:51 AM CDT us Álvaro Radford MD LAB BLOOD ORDERABLES Final Result Performing Organization Address [facility] Co de Phone Number [facility] Department [place] [address] [facility] * POCT glucose (12/02/2023 8:19 AM CDT) Glucose, POC 137 70 - 199 mg/dL Blood 12/02/2023 8:19 AM CDT 12/02/2023 8:19 AM CDT us Álvaro Radford MD LAB POCT ORDERABLES - DEVIC E Final Result Performing Organization Address [facility] de Phone Number [facility] [place] [address] * eGFR (12/01/2023 9:46 PM CDT) eGFR [...] MD LAB BLOOD ORDERABLES Final Resul t [facility] Department [place] [address] * (ABNORMAL) Differential, auto (12/01/2023 9:46 PM CDT) Neutrophil abs 10.2(H) 1.5 - 6.5 K/cumm Imm gran abs 0.1 0.0 - 0.1 K/cumm [facility] Lymphocyte abs 1.9 0.8 - 3.3 K/cumm [facility] Monocyte abs 0.9(H) 0.2 - 0.8 K/cumm [facility] Eosinophil abs 0.2 0.0 - 0.5 K/cumm [facility] Basophil abs 0.1 0.0 - 0.1 K/cumm [facility] Neutrophil pct 76.4 % [facility] Comment: Interpretive Data Percent cell count reference ranges are not reported, since discordance with absolute values may lead to misinterpretation of CBC data. Current Interpretive Data was last revised on 2017. Imm gran pct 0.7 % [facility] Comment: Interpretive Data Percent cell count reference ranges are not reported, since discordance with absolute values may lead to misinterpretation of CBC data. Current Interpretive Data was last revised on 2017. Lymphocyte pct 14.2 % [facility] Comment: Interpretive Data Percent cell count reference ranges are not reported, since discordance with absolute values may lead to misinterpretation of CBC data. Current Interpretive Data was last revised on 2017. Monocyte pct 6.9 % [facility] Comment: Interpretive Data Percent cell count reference ranges are not reported, since discordance with absolute values may lead to misinterpretation of CBC data. Current Interpretive Data was last revised on 2017. Eosinophil pct 1.4 % [facility] Comment: Interpretive Data Percent cell count reference ranges are not reported, since discordance with absolute values may lead to misinterpretation of CBC data. Current Interpretive Data was last revised on 2017. Basophil pct 0.4 % [facility] Comment: Interpretive Data Percent cell count reference ranges are not reported, since discordance with absolute values may lead to misinterpretation of CBC data. Current Interpretive Data was last revised on 2017. Blood 12/01/2023 9:46 PM CDT 12/01/2023 10:07 PM CDT us Maxime Lee MD LAB BLOOD ORDERABLES Final R esult [facility] Department [place] [address] * (ABNORMAL) Renal function panel (12/01/2023 9:46 PM CDT) Sodium 134(L) 135 - 145 mmol/L Potassium, pl 4.3 3.3 - 4.9 mmol/L [facility] Chloride 100 97 - 110 mmol/L [facility] CO2 25 22 - 32 mmol/L [facility] Anion gap 9 2 - 15 mmol/L [facility] BUN 13 6 - 25 mg/dL [facility] Creatinine 0.78 0.60 - 1.10 mg/dL [facility] Glucose 168 70 - 199 mg/dL [facility] Comment: Interpretive Data Fasting glucose >/= [...] 2022. Calcium 8.5 8.5 - 10.3 mg/dL [facility] Phosphorus, pl 3.0 2.3 - 4.5 mg/dL [facility] Albumin 2.6(L) 3.5 - 5.0 g/dL [facility] Blood 12/01/2023 9:46 PM CDT 12/01/2023 10:07 PM CDT us Suhail Alfredo MD LAB BLOOD ORDERABLES Final Resul t Performing Organization Address City/State/[facility] Co de Phone Number [facility] Department [place] [address] * (ABNORMAL) CBC with auto differential (12/01/2023 9:46 PM CDT) WBC 13.4(H) 3.8 - 9.9 K/cumm Hgb 8.4(L) 11.9 - 15.5 g/dL [facility] Hct 27.3(L) 35.6 - 45.5 % [facility] Plt 519(H) 150 - 400 K/cumm [facility] MPV 8.6(L) 9.1 - 12.3 fL [facility] RBC 3.26(L) 3.90 - 5.20 M/cumm [facility] MCV 83.7 81.3 - 96.4 fL [facility] MCH 25.8(L) 27.1 - 33.3 pg [facility] MCHC 30.8(L) 32.3 - 35.7 g/dL [facility] RDW CV 18.2(H) 11.1 - 14.9 % [facility] RDW SD 55.2(H) 35.7 - 48.1 fL [facility] NRBC abs 0.00 0.00 - 0.01 K/cumm [facility] Blood 12/01/2023 9:46 PM CDT 12/01/2023 10:07 PM CDT us Maxime Lee MD LAB BLOOD ORDERABLES Final R esult Performing Organization Address City/[facility] Co de Phone Number [facility] [employer] [place] [address] * (ABNORMAL) POCT glucose (12/01/2023 8:26 PM CDT) Glucose, POC 213(H) 70 - 199 mg/dL Blood 12/01/2023 8:26 PM CDT 12/01/2023 8:26 PM CDT us Álvaro Radford MD LAB POCT ORDERABLES - DEVIC E Final Result Performing Organization Address [facility] de Phone Number [facility] [employer] [place] [address] * POCT glucose (12/01/2023 4:04 PM CDT) Glucose, POC 152 70 - 199 mg/dL Blood 12/01/2023 4:04 PM CDT 12/01/2023 4:04 PM CDT us Álvaro Radford MD LAB POCT ORDERABLES - DEVIC E Final Result Performing Organization Address [facility] Co de Phone Number [facility] [employer] [place] [address] * (ABNORMAL) POCT glucose (12/01/2023 12:02 PM CDT) Glucose, POC 200(H) 70 - 199 mg/dL Blood 12/01/2023 12:0 2 PM CDT 12/01/2023 12:02 PM CDT us Álvaro Radford MD LAB POCT ORDERABLES - DEVIC E Final Result Performing Organization Address [facility] Co de Phone Number [facility] [employer] [place] [address] * POCT glucose (12/01/2023 8:27 AM CDT) Glucose, POC 124 70 - 199 mg/dL Blood 12/01/2023 8:27 AM CDT 12/01/2023 8:27 AM CDT Álvaro Radford MD LAB POCT ORDERABLES - DEVIC E Final Result Performing Organization Address [facility] Co de Phone Number [facility] Department [place] [address] * (ABNORMAL) Hepatic function panel (11/30/2023 10:55 PM CDT) [facility] Bilirubin, total 0.3 0.1 - 1.2 mg/dL Bilirubin, direct <0.2 0.1 - 0.3 mg/dL [facility] Protein, pl 7.1 6.5 - 8.5 g/dL [facility] Albumin 2.5(L) 3.5 - 5.0 g/dL [facility] Alk phos 78 40 - 130 Units/L [facility] ALT 6(L) 7 - 45 Units/L [facility] AST 16 10 - 45 Units/L [facility] Blood 11/30/2023 10:5 5 PM CDT 12/01/2023 12:14 AM CDT Suhail Alfredo MD LAB BLOOD ORDERABLES Final Resul t Performing Organization Address [facility] de Phone Number [facility] Department [place] [address] * Thyroid Function [place] (11/30/2023 10:55 PM CDT) [facility] TSH 2.09 0.30 - 4.20 mcIUnit/mL Blood 11/30/2023 10:5 5 PM CDT 12/01/2023 12:14 AM CDT Suhail Alfredo MD LAB BLOOD ORDERABLES Final Resul t Performing Organization Address City/[facility] Co de Phone Number GO ROBERT [facility] [employer] [place] [address] * Vitamin D 25 hydroxy (11/30/2023 10:55 PM CDT) Pathologist [facility] [place] Vitamin D 25-OH 39 30 - 80 ng/mL Blood 11/30/2023 10:5 5 PM CDT 12/01/2023 12:14 AM CDT Suhail Alfredo MD LAB BLOOD ORDERABLES Final Resul t Performing Organization Address [facility] de Phone Number GO ROBERT [facility] Department [place] [employer] [place] [address] * eGFR (11/30/2023 10:55 PM CDT) Pathologist [facility] [place] eGFR 90 >=60 mL/min/1. 73 m2 Comment: [...] MD LAB BLOOD ORDERABLES Final R esult [facility] Department [place] [address] * (ABNORMAL) Differential, auto (11/30/2023 10:55 PM CDT) Neutrophil abs 13.8(H) 1.5 - 6.5 K/cumm Imm gran abs 0.1 0.0 - 0.1 K/cumm [facility] Lymphocyte abs 2.0 0.8 - 3.3 K/cumm [facility] Monocyte abs 1.1(H) 0.2 - 0.8 K/cumm [facility] Eosinophil abs 0.1 0.0 - 0.5 K/cumm [facility] Basophil abs 0.1 0.0 - 0.1 K/cumm [facility] Neutrophil pct 80.4 % [facility] Comment: Interpretive Data Percent cell count reference ranges are not reported, since discordance with absolute values may lead to misinterpretation of CBC data. Current Interpretive Data was last revised on 2017. Imm gran pct 0.6 % [facility] Comment: Interpretive Data Percent cell count reference ranges are not reported, since discordance with absolute values may lead to misinterpretation of CBC data. Current Interpretive Data was last revised on 2017. Lymphocyte pct 11.5 % [facility] Comment: Interpretive Data Percent cell count reference ranges are not reported, since discordance with absolute values may lead to misinterpretation of CBC data. Current Interpretive Data was last revised on 2017. Monocyte pct 6.4 % [facility] Comment: Interpretive Data Percent cell count reference ranges are not reported, since discordance with absolute values may lead to misinterpretation of CBC data. Current Interpretive Data was last revised on 2017. Eosinophil pct 0.8 % [facility] Comment: Interpretive Data Percent cell count reference ranges are not reported, since discordance with absolute values may lead to misinterpretation of CBC data. Current Interpretive Data was last revised on 2017. Basophil pct 0.3 % [facility] Comment: Interpretive Data Percent cell count reference ranges are not reported, since discordance with absolute values may lead to misinterpretation of CBC data. Current Interpretive Data was last revised on 2017. Blood 11/30/2023 10:5 5 PM CDT 12/01/2023 12:13 AM CDT us Maxime Lee MD LAB BLOOD ORDERABLES Final R esult Performing Organization Address City/[facility] Co de Phone Number [facility] Department [place] [address] * Phosphorus (11/30/2023 10:55 PM CDT) Phosphorus, pl 3.0 2.3 - 4.5 mg/dL Blood 11/30/2023 10:5 5 PM CDT 12/01/2023 12:14 AM CDT us Maxime Lee MD LAB BLOOD ORDERABLES Final R esult Performing Organization Address City/[facility] Co de Phone Number [facility] Department [place] [address] * Magnesium (11/30/2023 10:55 PM CDT) Magnesium 1.8 1.4 - 2.5 mg/dL Blood 11/30/2023 10:5 5 PM CDT 12/01/2023 12:14 AM CDT Maxime Lee MD LAB BLOOD ORDERABLES Final R esult Performing Organization Address City/[facility] Co de Phone Number [facility] Department [place] [address] * (ABNORMAL) CBC with auto differential (11/30/2023 10:55 PM CDT) [facility] WBC 17.2(H) 3.8 - 9.9 K/cumm Hgb 8.3(L) 11.9 - 15.5 g/dL [facility] Hct 27.5(L) 35.6 - 45.5 % [facility] Plt 382 150 - 400 K/cumm [facility] MPV 9.4 9.1 - 12.3 fL [facility] RBC 3.27(L) 3.90 - 5.20 M/cumm [facility] MCV 84.1 81.3 - 96.4 fL [facility] MCH 25.4(L) 27.1 - 33.3 pg [facility] MCHC 30.2(L) 32.3 - 35.7 g/dL [facility] RDW CV 18.3(H) 11.1 - 14.9 % [facility] RDW SD 56.6(H) 35.7 - 48.1 fL [facility] NRBC abs 0.00 0.00 - 0.01 K/cumm [facility] Blood 11/30/2023 10:5 5 PM CDT 12/01/2023 12:13 AM CDT us Maxime Lee MD LAB BLOOD ORDERABLES Final R esult [facility] Department [place] [address] * (ABNORMAL) Basic metabolic panel (11/30/2023 10:55 PM CDT) [facility] Sodium 135 135 - 145 mmol/L Potassium, pl 3.9 3.3 - 4.9 mmol/L [facility] Chloride 100 97 - 110 mmol/L [facility] CO2 25 22 - 32 mmol/L [facility] Anion gap 10 2 - 15 mmol/L [facility] BUN 10 6 - 25 mg/dL [facility] Creatinine 0.74 0.60 - 1.10 mg/dL [facility] Glucose 141 70 - 199 mg/dL [facility] Comment: Interpretive Data Fasting glucose >/= [...] 2022. Calcium 8.4(L) 8.5 - 10.3 mg/dL [facility] Blood 11/30/2023 10:5 5 PM CDT 12/01/2023 12:14 AM CDT us Maxime Lee MD LAB BLOOD ORDERABLES Final R esult Performing Organization Address City/[facility]/ZIP Co de Phone Number [facility] Department of [employer] [place] [address] * POCT glucose (11/30/2023 9:11 PM CDT) Glucose, POC 147 70 - 199 mg/dL Blood 11/30/2023 9:11 PM CDT 11/30/2023 9:11 PM CDT us Suhail Alfredo MD LAB POCT ORDERABLES - DEVICE Fin al Result Performing Organization Address City/[facility]/ZIP Co de Phone Number [facility] Department [place] [employer] [place] [address] * POCT glucose (11/30/2023 5:26 PM CDT) Glucose, POC 142 70 - 199 mg/dL Blood 11/30/2023 5:26 PM CDT 11/30/2023 5:26 PM CDT Suhail Alfredo MD LAB POCT ORDERABLES - DEVICE Fin al Result Performing Organization Address [facility] Co de Phone Number [facility] [place] [address] * Infection Prevention Angie auris PCR, surveillance Axilla/Groin (11/30/2023 2:27 PM CDT) Angie auris DNA Not Detected Not Detected [facility] Comment: Interpretive Data Testing performed by [facility] using the Drimmi[employer] MDX Angie auris assay. ??This assay detects DNA from Angie auris using Real-Time PCR. ??This assay is laboratory developed and is not cleared by the [facility] Food and Drug Administration. ??The performance characteristics have been verified by the [facility]. Interpretive data was last reviewed on 06/11/2023 Axilla/Groin 11/30/2023 2:27 PM CDT 11/30/2023 3:29 PM CDT Eliseo Chapa MD LAB MICROBIOLOGY - GENE RAL ORDERABLES Final Result Performing Organization Address [facility] de Phone Number [facility] [employer] [place] [address] [facility] * (ABNORMAL) POCT glucose (11/30/2023 11:53 AM CDT) Glucose, POC 202(H) 70 - 199 mg/dL Comment:Glu2: RN/MD Notified Glucose comment 1 Glu2: RN/MD Notified [facility] Blood 11/30/2023 11:5 3 AM CDT 11/30/2023 11:53 AM CDT Suhail Alfredo MD LAB POCT ORDERABLES - DEVICE Fin al Result Performing Organization Address City/[facility] Co de Phone Number [facility] Department [place] [address] * POCT glucose (11/30/2023 9:06 AM CDT) Glucose, POC 164 70 - 199 mg/dL Blood 11/30/2023 9:06 AM CDT 11/30/2023 9:06 AM CDT us Suhail Alfredo MD LAB POCT ORDERABLES - DEVICE Fin al Result Performing Organization Address [facility] de Phone Number [facility] [place] [address] * (ABNORMAL) Calcium, ionized (11/30/2023 8:15 AM CDT) Calcium, Ionized 4.30(L) 4.50 - 5.10 mg/dL Blood 11/30/2023 8:15 AM CDT 11/30/2023 9:18 AM CDT us Suhail Alfredo MD LAB BLOOD ORDERABLES Final Resul t Performing Organization Address [facility] [place] [address] * (ABNORMAL) Cortisol (11/30/2023 8:15 AM CDT) [...] ORDERABLES Final Resul t Performing Organization Address [facility]/State/ZIP Co de Phone Number GO ROBERT [facility] Department [place] [address] * POCT glucose (11/29/2023 9:07 PM CDT) [facility] Glucose, POC 173 70 - 199 mg/dL Blood 11/29/2023 9:07 PM CDT 11/29/2023 9:07 PM CDT us Suhail Alfredo MD LAB POCT ORDERABLES - DEVICE Fin al Result GO ROBERT [facility] Department [place] [address] * eGFR (11/29/2023 8:51 PM CDT) [facility] eGFR 75 >=60 mL/min/1. 73 m2 Comment: [...] MD LAB BLOOD ORDERABLES Final R esult [facility] Department [place] [address] * (ABNORMAL) Differential, auto (11/29/2023 8:51 PM CDT) Neutrophil abs 11.0(H) 1.5 - 6.5 K/cumm Imm gran abs 0.1 0.0 - 0.1 K/cumm [facility] Lymphocyte abs 1.6 0.8 - 3.3 K/cumm [facility] Monocyte abs 1.2(H) 0.2 - 0.8 K/cumm [facility] Eosinophil abs 0.2 0.0 - 0.5 K/cumm [facility] Basophil abs 0.1 0.0 - 0.1 K/cumm [facility] Neutrophil pct 77.4 % [facility] Comment: Interpretive Data Percent cell count reference ranges are not reported, since discordance with absolute values may lead to misinterpretation of CBC data. Current Interpretive Data was last revised on 2017. Imm gran pct 0.6 % [facility] Comment: Interpretive Data Percent cell count reference ranges are not reported, since discordance with absolute values may lead to misinterpretation of CBC data. Current Interpretive Data was last revised on 2017. Lymphocyte pct 11.3 % [facility] Comment: Interpretive Data Percent cell count reference ranges are not reported, since discordance with absolute values may lead to misinterpretation of CBC data. Current Interpretive Data was last revised on 2017. Monocyte pct 8.7 % [facility] Comment: Interpretive Data Percent cell count reference ranges are not reported, since discordance with absolute values may lead to misinterpretation of CBC data. Current Interpretive Data was last revised on 2017. Eosinophil pct 1.6 % [facility] Comment: Interpretive Data Percent cell count reference ranges are not reported, since discordance with absolute values may lead to misinterpretation of CBC data. Current Interpretive Data was last revised on 2017. Basophil pct 0.4 % [facility] Comment: Interpretive Data Percent cell count reference ranges are not reported, since discordance with absolute values may lead to misinterpretation of CBC data. Current Interpretive Data was last revised on 2017. Blood 11/29/2023 8:51 PM CDT 11/29/2023 9:12 PM CDT us Maxime Lee MD LAB BLOOD ORDERABLES Final R esult [facility] [place] [address] * Phosphorus (11/29/2023 8:51 PM CDT) Phosphorus, pl 2.7 2.3 - 4.5 mg/dL Blood 11/29/2023 8:51 PM CDT 11/29/2023 9:12 PM CDT us Maxime Lee MD LAB BLOOD ORDERABLES Final R esult Performing Organization Address City/[facility]/ZIP Co de Phone Number [facility] Department [place] [address] * Magnesium (11/29/2023 8:51 PM CDT) Magnesium 1.7 1.4 - 2.5 mg/dL Blood 11/29/2023 8:51 PM CDT 11/29/2023 9:12 PM CDT us Maxime Lee MD LAB BLOOD ORDERABLES Final R esult [facility] [place] [address] * (ABNORMAL) CBC with auto differential (11/29/2023 8:51 PM CDT) [facility] WBC 14.2(H) 3.8 - 9.9 K/cumm Hgb 7.5(L) 11.9 - 15.5 g/dL [facility] Hct 24.3(L) 35.6 - 45.5 % [facility] Plt 443(H) 150 - 400 K/cumm [facility] MPV 8.4(L) 9.1 - 12.3 fL [facility] RBC 2.91(L) 3.90 - 5.20 M/cumm [facility] MCV 83.5 81.3 - 96.4 fL [facility] MCH 25.8(L) 27.1 - 33.3 pg [facility] MCHC 30.9(L) 32.3 - 35.7 g/dL [facility] RDW CV 18.3(H) 11.1 - 14.9 % [facility] RDW SD 55.5(H) 35.7 - 48.1 fL [facility] NRBC abs 0.00 0.00 - 0.01 K/cumm [facility] Blood 11/29/2023 8:51 PM CDT 11/29/2023 9:12 PM CDT us Maxime Lee MD LAB BLOOD ORDERABLES Final R esult [facility] Department [place] [address] * (ABNORMAL) Basic metabolic panel (11/29/2023 8:51 PM CDT) [facility] Sodium 131(L) 135 - 145 mmol/L Potassium, pl 4.0 3.3 - 4.9 mmol/L [facility] Chloride 101 97 - 110 mmol/L [facility] CO2 24 22 - 32 mmol/L [facility] Anion gap 6 2 - 15 mmol/L [facility] BUN 12 6 - 25 mg/dL [facility] Creatinine 0.86 0.60 - 1.10 mg/dL [facility] Glucose 163 70 - 199 mg/dL [facility] Comment: Interpretive Data Fasting glucose >/= [...] 2022. Calcium 7.9(L) 8.5 - 10.3 mg/dL [facility] Blood 11/29/2023 8:51 PM CDT 11/29/2023 9:12 PM CDT Maxime Lee MD LAB BLOOD ORDERABLES Final R esult Performing Organization Address [facility] Co de Phone Number [facility] Department [place] [address] * POCT glucose (11/29/2023 4:20 PM CDT) Glucose, POC 185 70 - 199 mg/dL Blood 11/29/2023 4:20 PM CDT 11/29/2023 4:20 PM CDT Suhail Alfredo MD LAB POCT ORDERABLES - DEVICE Fin al Result Performing Organization Address [facility] Co de Phone Number [facility] Department [place] [address] * POCT glucose (11/29/2023 8:28 AM CDT) Glucose, POC 137 70 - 199 mg/dL Blood 11/29/2023 8:28 AM CDT 11/29/2023 8:28 AM CDT Suhail Alfredo MD LAB POCT ORDERABLES - DEVICE Fin al Result Performing Organization Address [facility] de Phone Number [facility] [place] [address] * Mold Blood Culture Blood (11/29/2023 12:58 AM CDT) Report Final Report: No growth Blood 11/29/2023 12:5 8 AM CDT 11/29/2023 4:07 AM CDT Narrative GO ROBERT - 12/29/2023 7:01 AM [employer] Interpretive data: Mold blood cultures are incubated [...] for optimal patient management. Testing performed by [facility] ([phone]). Current interpretive data was last revised on 2023. Suhail Alfredo MD LAB MICROBIOLOGY - GENERAL ORDER INO Final Result Performing Organization Address [facility] de Phone Number [facility] Department [place] [address] * eGFR (11/29/2023 12:46 AM CDT) eGFR [...] MD LAB BLOOD ORDERABLES Final R esult [facility] Department [place] [address] * (ABNORMAL) Differential, auto (11/29/2023 12:46 AM CDT) Pathologist [facility] Neutrophil abs 12.3(H) 1.5 - 6.5 K/cumm Imm gran abs 0.1 0.0 - 0.1 K/cumm [facility] Lymphocyte abs 3.0 0.8 - 3.3 K/cumm [facility] Monocyte abs 1.5(H) 0.2 - 0.8 K/cumm [facility] Eosinophil abs 0.3 0.0 - 0.5 K/cumm [facility] Basophil abs 0.1 0.0 - 0.1 K/cumm [facility] Neutrophil pct 71.4 % [facility] Comment: Interpretive Data Percent cell count reference ranges are not reported, since discordance with absolute values may lead to misinterpretation of CBC data. Current Interpretive Data was last revised on 2017. Imm gran pct 0.8 % [facility] Comment: Interpretive Data Percent cell count reference ranges are not reported, since discordance with absolute values may lead to misinterpretation of CBC data. Current Interpretive Data was last revised on 2017. Lymphocyte pct 17.3 % [facility] Comment: Interpretive Data Percent cell count reference ranges are not reported, since discordance with absolute values may lead to misinterpretation of CBC data. Current Interpretive Data was last revised on 2017. Monocyte pct 8.6 % [facility] Comment: Interpretive Data Percent cell count reference ranges are not reported, since discordance with absolute values may lead to misinterpretation of CBC data. Current Interpretive Data was last revised on 2017. Eosinophil pct 1.5 % [facility] Comment: Interpretive Data Percent cell count reference ranges are not reported, since discordance with absolute values may lead to misinterpretation of CBC data. Current Interpretive Data was last revised on 2017. Basophil pct 0.4 % [facility] Comment: Interpretive Data Percent cell count reference ranges are not reported, since discordance with absolute values may lead to misinterpretation of CBC data. Current Interpretive Data was last revised on 2017. Blood 11/29/2023 12:4 6 AM CDT 11/29/2023 1:06 AM CDT us Maxime Lee MD LAB BLOOD ORDERABLES Final R esult Performing Organization Address City/[facility]/ZIP Co de Phone Number [facility] Department of [employer] [place] [address] * Phosphorus (11/29/2023 12:46 AM CDT) Phosphorus, pl 3.5 2.3 - 4.5 mg/dL Blood 11/29/2023 12:4 6 AM CDT 11/29/2023 1:06 AM CDT us Maxime Lee MD LAB BLOOD ORDERABLES Final R esult Performing Organization Address City/[facility]/ZIP Co de Phone Number [facility] Department [place] [address] * Magnesium (11/29/2023 12:46 AM CDT) Pathologist [facility] [place] Magnesium 2.0 1.4 - 2.5 mg/dL Blood 11/29/2023 12:4 6 AM CDT 11/29/2023 1:06 AM CDT us Maxime Lee MD LAB BLOOD ORDERABLES Final R esult Performing Organization Address City/[facility]/ZIP Co de Phone Number [facility] Department [place] [address] * (ABNORMAL) CBC with auto differential (11/29/2023 12:46 AM CDT) [facility] WBC 17.2(H) 3.8 - 9.9 K/cumm Hgb 8.0(L) 11.9 - 15.5 g/dL [facility] Hct 27.2(L) 35.6 - 45.5 % [facility] Plt 511(H) 150 - 400 K/cumm [facility] MPV 8.4(L) 9.1 - 12.3 fL [facility] RBC 3.18(L) 3.90 - 5.20 M/cumm [facility] MCV 85.5 81.3 - 96.4 fL [facility] MCH 25.2(L) 27.1 - 33.3 pg [facility] MCHC 29.4(L) 32.3 - 35.7 g/dL [facility] RDW CV 18.0(H) 11.1 - 14.9 % [facility] RDW SD 56.4(H) 35.7 - 48.1 fL [facility] NRBC abs 0.00 0.00 - 0.01 K/cumm [facility] Blood 11/29/2023 12:4 6 AM CDT 11/29/2023 1:06 AM CDT us Maxime Lee MD LAB BLOOD ORDERABLES Final R esult [facility] Department [place] [address] * (ABNORMAL) Basic metabolic panel (11/29/2023 12:46 AM CDT) Sodium 135 135 - 145 mmol/L Potassium, pl 4.3 3.3 - 4.9 mmol/L [facility] Chloride 101 97 - 110 mmol/L [facility] CO2 28 22 - 32 mmol/L [facility] Anion gap 6 2 - 15 mmol/L [facility] BUN 15 6 - 25 mg/dL [facility] Creatinine 0.82 0.60 - 1.10 mg/dL [facility] Glucose 97 70 - 199 mg/dL [facility] Comment: Interpretive Data Fasting glucose >/= [...] 2022. Calcium 8.4(L) 8.5 - 10.3 mg/dL [facility] Blood 11/29/2023 12:4 6 AM CDT 11/29/2023 1:06 AM CDT us Maxime Lee MD LAB BLOOD ORDERABLES Final R esult [facility] Department [place] [address] * POCT glucose (11/28/2023 8:35 PM CDT) Glucose, POC 129 70 - 199 mg/dL Blood 11/28/2023 8:35 PM CDT 11/28/2023 8:35 PM CDT us Suhail Alfredo MD LAB POCT ORDERABLES - DEVICE Fin al Result Performing Organization Address [facility] de Phone Number [facility] [place] [address] * POCT glucose (11/28/2023 4:45 PM CDT) Glucose, POC 127 70 - 199 mg/dL Blood 11/28/2023 4:45 PM CDT 11/28/2023 4:45 PM CDT Suhail Alfredo MD LAB POCT ORDERABLES - DEVICE Fin al Result Performing Organization Address [facility] de Phone Number [facility] Department [place] [address] * Calcium, ionized (11/28/2023 4:13 PM CDT) Calcium, Ionized 4.54 4.50 - 5.10 mg/dL Blood 11/28/2023 4:13 PM CDT 11/28/2023 4:22 PM CDT us Suhail Alfredo MD LAB BLOOD ORDERABLES Final Resul t Performing Organization Address [facility] Phone Number [facility] [place] [address] * (ABNORMAL) Leukocytes, fecal (11/28/2023 4:13 PM CDT) WBC, fecal Few leukocyte s(A) No leukocytes Comment: Interpretive Data Testing performed by microsopy. Current Interpretive Data was last revised on 2022 Stool 11/28/2023 4:13 PM CDT 11/28/2023 6:17 PM CDT us Suhail Alfredo MD LAB BODY FLUIDS AND STOOLS ORDER INO Final Result Performing Organization Address [facility] Co de Phone Number [facility] [place] [address] * (ABNORMAL) Calprotectin, fecal (11/28/2023 4:13 PM CDT) Pathologist [facility] [place] Calprotectin, fecal >3000(H) <50.0 (Normal) mcg/g [facility] Comment: Interpretation: Abnormal (>120 mcg/g) Test Performed by: [facility] [address] [id number] Head Of History: Rach Guillermo Ph.D.; CLIA# [id number] Stool 11/28/2023 4:13 PM CDT 11/28/2023 7:49 PM CDT us Suhail Alfredo MD LAB BODY FLUIDS AND STOOLS ORDER INO Final Result [facility] Department [place] [address] Formerly [facility] * Histoplasma Antigen Urine (11/28/2023 3:00 PM CDT) Pathologist [facility] [place] Histo Ag Ur result None Detected None Detected Histo Ag Ur interp Negative Negative [facility] Comment: Result Interpretation: Reference interval: None Detected Results reported as ng/mL in 0.20 - 20.00 ng/mL range Results above 20.00 ng/mL are reported as 'Positive, Above the Limit of Quantification' Testing Performed by: [facility], [address] [place] [address] [place] [id number]. This test was developed and its performance characteristics determined by [employer]. It has not been cleared or approved by the FDA; however, FDA clearance or approval is not currently required for clinical use. The results are not intended to be used as the sole means for clinical diagnosis or patient management decisions. Interpretative data updated 04/17/2020 Urine 11/28/2023 3:00 PM CDT 11/28/2023 6:42 PM CDT us Suhail Alfredo MD LAB MICROBIOLOGY - GENERAL ORDER INO Final Result [facility] Department [place] [address] * X-ray chest 1 view (Portable) (11/28/2023 [...] * POCT glucose (11/28/2023 11:50 AM CDT) Pathologist [facility] [place] Glucose, POC 149 70 - 199 mg/dL Blood 11/28/2023 11:5 0 AM CDT 11/28/2023 11:50 AM CDT Suhail Alfredo MD LAB POCT ORDERABLES - DEVICE Fin al Result [facility] Department [place] [address] * Pneumonia PCR Bronchoalveolar lavage Lobe, left upper (11/28/2023 11:02 AM CDT) [facility] C. pneumoniae DNA Not Detected Not Detected Legionella pneumophila DNA Not Detected Not Detected [facility] M. pneumoniae DNA Not Detected Not Detected [facility] Adenovirus DNA Not Detected Not Detected [facility] Coronavirus (229E, OC43, HKU1, NL63) RNA Not Detected Not Detected [facility] Metapneumovirus RNA Not Detected Not Detected [facility] Rhinovirus/Enterov irus RNA Not Detected Not Detected [facility] Influenza A RNA Not Detected Not Detected [facility] Influenza B RNA Not Detected Not Detected [facility] Parainfluenza virus (1-4) RNA Not Detected Not Detected [facility] RSV RNA Not Detected Not Detected [facility] Bronchoalveolar lavage (Lobe, left upper) 11/28/2023 11:02 AM CDT 11/28/2023 2:27 PM CDT Narrative [facility] - 11/28/2023 3:54 PM CDT The [...] of this assay have been determined by [facility]. Current interpretive data was last revised on 2023. Suhail Alfredo MD LAB MICROBIOLOGY - GENERAL ORDER INO Final Result Performing Organization Address [facility] de Phone Number [facility] Department [place] [address] * Cell Differential, Body Fluid (11/28/2023 11:02 AM CDT) Total cells diffed 100 cells Comment: Interpretive Data Unless otherwise specified, the reference range and other method performance specifications have not been established for CSF/Body Fluid tests. ??The test results should be integrated into the clinical context for interpretation. Current interpretive data was last revised on 2018. Neutrophils, fld 62 % [facility] Lymphs, fld 1 % [facility] Monocyte, fld 3 % [facility] Macrophages, fld 34 % [facility] Fluid 11/28/2023 11:0 2 AM CDT 11/28/2023 12:51 PM CDT us Suhail Alfredo MD LAB BODY FLUIDS AND STOOLS ORDER INO Final Result Performing Organization Address [facility] Co de Phone Number [facility] Department [place] [address] * Cell count w/rflx diff, body fluid (11/28/2023 11:02 AM CDT) Specimen type, fld Bronchial Body site, fld Bronch Lavage [facility] Color, fld Straw [facility] Clarity, fld Clear Clear [facility] Nucleated cells, fld 751 /cumm [facility] Comment: Interpretive Data Unless otherwise specified, the reference range and other method performance specifications have not been established for CSF/Body Fluid tests. ??The test results should be integrated into the clinical context for interpretation. Current interpretive data was last revised on 2018. RBC, fld 0 /cumm [facility] Fluid 11/28/2023 11:0 2 AM CDT 11/28/2023 12:51 PM CDT Suhail Alfredo MD LAB BODY FLUIDS AND STOOLS ORDER INO Final Result [facility] Department [place] [address] * Pneumonia PCR with aerobic culture and Gram stain Bronchoalveolar lavage Lobe, left upper (11/28/2023 11:02 AM CDT) Pathologist [facility] [place] Direct Specimen Exam Molecular Analysis: No bacterial [...] mixed bacterial noah seen on Gram stain. [facility] Report Final Report: Growth indicates upper respiratory noah. [facility] Organism GROWTH INDICATES UPPER RESPIRATORY NOAH. [facility] Bronchoalveolar lavage (Lobe, left upper) 11/28/2023 11:02 AM CDT 11/28/2023 1:12 PM CDT Narrative [facility] - 12/01/2023 3:07 PM CDT When rapid molecular testing results are reported, testing completed using the IdeagenArray Pneumonia Panel. ??This molecular assay detects: Acinetobacter [...] performance characteristics have been confirmed by the [facility]. ??The performance of the FilmArray Pneumonia Panel has not been established for monitoring treatment of infection and bacterial nucleic acids may persist independent of organism viability. Suhail Alfredo MD LAB MICROBIOLOGY - GENERAL ORDER INO Final Result [facility] Department [place] [address] * Cytomegalovirus (CMV) PCR qualitative Bronchoalveolar lavage Lobe, left upper (11/28/2023 11:02 AM CDT) CMV DNA Not Detected Not Detected [facility] Comment: Interpretive Data: This assay tests [...] ORDER INO Final Result Performing Organization Address [facility] de Phone Number [facility] Department [place] [address] [facility] * Aerobic culture and gram stain Bronchial washing Lobe, left upper (11/28/2023 11:02 AM CDT) Direct Specimen Exam Stain: Cytospin Gram stain shows: Abundant polymorphonuclear leukocytes seen. Abundant squamous epithelial cells seen indicating excessive oral pharyngeal contamination Other cellular material present. Rare mixed bacterial noah seen on Gram stain. Report Final Report: Growth indicates upper respiratory noah. [facility] Organism GROWTH INDICATES UPPER RESPIRATORY NOAH. [facility] Bronchial washing (Lobe, left upper) 11/28/2023 11:02 AM CDT 11/28/2023 12:58 PM CDT Narrative [facility] - 12/01/2023 2:39 PM CDT Testing performed by [facility] ([phone]) Specimens submitted from normally sterile body sites [...] ORDER INO Final Result Performing Organization Address [facility] de Phone Number [facility] Department [place] [address] * Pneumocystis DFA Bronchial washing (11/28/2023 11:02 AM CDT) Report Direct Stain Examination - Final: Negative for: Pneumocystis jirovecii Bronchial washing 11/28/2023 11:02 AM CDT 11/28/2023 12:58 PM CDT Narrative [facility] - 11/29/2023 1:38 PM CDT The [...] ORDER INO Final Result Performing Organization Address City/[facility] Co de Phone Number [facility] Department [place] [address] * Mycology (fungal) culture Bronchial washing Lobe, left upper (11/28/2023 11:02 AM CDT) Report Final Report: No growth of fungus Bronchial washing (Lobe, left upper) 11/28/2023 11:02 AM CDT 11/28/2023 12:58 PM CDT Narrative [facility] - 12/26/2023 8:05 AM INSOLE AND HEEL STIFFENER Testing performed by [facility] ([phone]). us Suhail Alfredo MD LAB MICROBIOLOGY - GENERAL ORDER INO Final Result [facility] Department [place] [address] * Mycobacteriology (AFB) culture and acid-fast stain Bronchial washing Lobe, left upper (11/28/2023 11:02 AM CDT) Direct Specimen Exam Stain: No Acid-fast bacilli seen Report Final Report: No growth of acid-fast bacilli [facility] Bronchial washing (Lobe, left upper) 11/28/2023 11:02 AM CDT 11/28/2023 12:58 PM CDT Narrative [facility] - 01/26/2024 9:26 AM INSOLE AND HEEL STIFFENER Testing performed by [facility] ([phone]). Suhail Alfredo MD LAB MICROBIOLOGY - GENERAL ORDER INO Final Result Performing Organization Address [facility] Co de Phone Number [facility] Department [place] [address] * Pneumocystis DFA Bronchoalveolar lavage (11/28/2023 11:02 AM CDT) Report Direct Stain Examination - Final: Negative for: Pneumocystis jirovecii Bronchoalveolar lavage 11/27 11:02 AM CDT 11/28/2023 1:12 PM CDT Narrative [facility] - 11/29/2023 1:38 PM CDT The [...] ORDER INO Final Result Performing Organization Address [facility] de Phone Number [facility] Department [place] [address] * Mycology (fungal) culture Bronchoalveolar lavage Bronchial (11/28/2023 11:02 AM CDT) Report Final Report: No growth of fungus Bronchoalveolar lavage (Bronchial) 11/28/2023 11:02 AM CDT 11/28/2023 1:12 PM CDT Narrative [facility] - 12/26/2023 8:05 AM INSOLE AND HEEL STIFFENER Testing performed by [facility] ([phone]). us Suhail Alfredo MD LAB MICROBIOLOGY - GENERAL ORDER INO Final Result Performing Organization Address City/[facility] Co de Phone Number [facility] Department [place] [address] * Mycobacteriology (AFB) culture and acid-fast stain Bronchoalveolar lavage Lobe, left upper (11/28/2023 11:02 AM CDT) Direct Specimen Exam Stain: No Acid-fast bacilli seen Report Final Report: No growth of acid-fast bacilli [facility] Bronchoalveolar lavage (Lobe, left upper) 11/28/2023 11:02 AM CDT 11/28/2023 1:12 PM CDT Narrative [facility] - 01/26/2024 9:26 AM INSOLE AND HEEL STIFFENER Testing performed by [facility] ([phone]). us Suhail Alfredo MD LAB MICROBIOLOGY - GENERAL ORDER INO Final Result Performing Organization Address [facility] Co de Phone Number [facility] [place] [address] * Legionella culture Bronchoalveolar lavage (11/28/2023 11:02 AM CDT) Report Final Report: Negative Bronchoalveolar lavage 11/27 11:02 AM CDT 11/28/2023 1:12 PM CDT us Suhail Alfredo MD LAB MICROBIOLOGY - GENERAL ORDER INO Final Result Performing Organization Address City/[facility]/ZIP Co de Phone Number [facility] Department [place] [address] * Adenovirus PCR qualitative Bronchoalveolar lavage (11/28/2023 11:02 AM CDT) Adenovirus DNA Not Detected Not Detected [facility] Comment: Interpretive Data: This assay tests [...] - GENERAL ORDER INO Final Result [facility] Department [place] [address] [facility] * Cytology (11/28/2023 10:48 AM CDT) Fluid (Bronch Lavage (Cytology)) 11/28/2023 10:48 AM CDT 11/28/2023 1:10 PM CDT Narrative PATHOLOGY [facility] - 12/02/2023 2:20 PM CDT EPIC results best viewed via link to PDF [facility] [place] [address] Note to Patients: This report may contain [...] Gender: ??F : ??1960 (Age: 63) Address: ??[address] [place] [id number] Hospital #: ??[id number] Taken:11/28/2023 Received:11/28/2023 Reported: 12/02/2023 Patient Type: [facility] Inpatient ?? Service: Medical Location: [facility] [address] Physician(s): ??Monserrat Bautista M.D. Rajneesh S. Jain, M.D. FINAL DIAGNOSIS Bronchoalveolar lavage, left ? - Negative for malignancy or opportunistic infection /12/02/2023 12:49 By this signature, I attest that the above diagnosis is based upon my personal examination of the slides(and/or other material indicated in the diagnosis). Lindsay Martinez M.D. Report Electronically Reviewed and Signed Out By ??Lindsay Martinez M.D. 12/02/2023 14:20:18 John Ortega [facility](ASCP) Gross Description A. ??Bal, left: ? [...] Surgical Pathology and Flow Cytometry Departments at [facility] as part of an ongoing quality improvement coordinator program and in compliance with federally [...] Surgical Pathology and Flow Cytometry Departments of [facility]. ??It has not been cleared or approved by the U. S. Food and Drug Administration. Suhail Alfredo MD LAB CYTOLOGY ORDERABLES Final Re sult PATHOLOGY [facility] 3rd Floor [place], [place] [phone] * Surgical pathology (11/28/2023 10:48 AM CDT) Tissue (Lung Biopsy) 11/28/2023 10:48 AM CDT 11/28/2023 1:09 PM CDT Narrative PATHOLOGY [facility] - 12/02/2023 11:21 AM CDT EPIC results best viewed via link to PDF [facility] [place] [address] Note to Patients: This report may contain [...] Gender: ??F : ??1960 (Age: 63) Address: ??[address] [place] [address] ??[id number] Hospital #: ??[id number] Taken:11/28/2023 Received:11/28/2023 Reported: 12/02/2023 Patient Type: [facility] Inpatient ?? Service: Medical Location: [address] [place] [address] Physician(s): ??Marlene Pierre M.D. Suhail Alfredo M.D. Diagnosis: Lung, left upper lobe, biopsy ? - Organizing lung injury and bronchiolitis, see comment fw/11/30/2023 13:32 By this signature, I attest that [...] x 0.1 cm. Labeled A1. Jar 0. elsw/11/28/2023 14:59 PA(s): Lakeshia Raymond By this signature, [...] Bacteria broad-range PCR test was performed at [facility]. ??[facility], [address], [address] [place] [address] The performance characteristics of some immunohistochemical stains, fluorescence in-situ hybridization tests and immunophenotyping by flow cytometry cited in this report (if any) were determined by the Surgical Pathology and Flow Cytometry Departments at [facility] as part of an ongoing quality improvement coordinator program and in compliance with federally [...] Surgical Pathology and Flow Cytometry Departments of [facility]. ??It has not been cleared or approved by the U. S. Food and Drug Administration. IMAGES AND SCANNED DOCUMENTS, IF INCLUDED, ONLY VIEWABLE IN PDF VERSION OF REPORT us Suhail Alfredo MD LAB PATHOLOGY ORDERABLES Final R esult PATHOLOGY [facility] 3rd Floor [place], [place] [phone] * Bronchoscopy - (11/28/2023 9:47 AM CDT) Anatomical Region Laterality Modality Other Narrative Procedure Note Ricky Vasquez MD - 11/28/2023 9:47 AM CDT [facility] Respiratory Care Patient Name: Darius Russo Procedure Date: 11/28/2023 9:47 AM Date of : 1960 Admit Type: Inpatient Age: 63 Room: [facility] Gender: Female Note Status: Finalized Procedure: Bronchoscopy [...] Conscious sedation note: I personally provided direct [id number] monitoring of conscious sedation administered by an [...] DEVICE Fin al Result Performing Organization Address City/State/[facility] Co la Phone Number [facility] Department [place] [address] * eGFR (11/28/2023 1:10 AM CDT) eGFR [...] MD LAB BLOOD ORDERABLES Final R esult [facility] Department [place] [address] * (ABNORMAL) Differential, auto (11/28/2023 1:10 AM CDT) Neutrophil abs 11.0(H) 1.5 - 6.5 K/cumm Imm gran abs 0.1 0.0 - 0.1 K/cumm [facility] Lymphocyte abs 1.6 0.8 - 3.3 K/cumm [facility] Monocyte abs 1.5(H) 0.2 - 0.8 K/cumm [facility] Eosinophil abs 0.1 0.0 - 0.5 K/cumm [facility] Basophil abs 0.1 0.0 - 0.1 K/cumm [facility] Neutrophil pct 76.5 % [facility] Comment: Interpretive Data Percent cell count reference ranges are not reported, since discordance with absolute values may lead to misinterpretation of CBC data. Current Interpretive Data was last revised on 2017. Imm gran pct 0.8 % [facility] Comment: Interpretive Data Percent cell count reference ranges are not reported, since discordance with absolute values may lead to misinterpretation of CBC data. Current Interpretive Data was last revised on 2017. Lymphocyte pct 11.4 % [facility] Comment: Interpretive Data Percent cell count reference ranges are not reported, since discordance with absolute values may lead to misinterpretation of CBC data. Current Interpretive Data was last revised on 2017. Monocyte pct 10.1 % [facility] Comment: Interpretive Data Percent cell count reference ranges are not reported, since discordance with absolute values may lead to misinterpretation of CBC data. Current Interpretive Data was last revised on 2017. Eosinophil pct 0.8 % [facility] Comment: Interpretive Data Percent cell count reference ranges are not reported, since discordance with absolute values may lead to misinterpretation of CBC data. Current Interpretive Data was last revised on 2017. Basophil pct 0.4 % [facility] Comment: Interpretive Data Percent cell count reference ranges are not reported, since discordance with absolute values may lead to misinterpretation of CBC data. Current Interpretive Data was last revised on 2017. Blood 11/28/2023 1:10 AM CDT 11/28/2023 1:29 AM CDT us Maxime Lee MD LAB BLOOD ORDERABLES Final R esult Performing Organization Address [facility] Co de Phone Number [facility] [place] [address] * aPTT (11/28/2023 1:10 AM CDT) aPTT [...] ORDERABLES Final Resul t Performing Organization Address [facility] de Phone Number [facility] Department [place] [address] * (ABNORMAL) Protime-INR (11/28/2023 1:10 AM CDT) PT 17.7(H) 9.7 - 13.0 sec INR 1.62(H) 0.90 - 1.20 [facility] Comment: Interpretive data Oral anticoagulant therapeutic [...] ORDERABLES Final Resul t Performing Organization Address [facility] [place] [address] * Type and screen (11/28/2023 1:10 AM CDT) ABO Rh O Positive Maira, indirect Negative [facility] Blood 11/28/2023 1:10 AM CDT 11/28/2023 1:49 AM CDT Narrative [facility] - 11/28/2023 2:35 AM CDT Has the patient had Daratumumab or Isatuximab in the past 6 months?->Unknown us Suhail Alfredo MD LAB BLOOD BANK TEST ORDERABLES F inal Result Performing Organization Address [facility] [place] de Phone Number [facility] [employer] [place] [address] * Aspergillus galactomannan antigen Blood (11/28/2023 1:10 AM CDT) Pathologist [facility] [place] Aspergillus galactomannan Ag <0.500 <0.5 Index [facility] Comment: ADDITIONAL INFORMATION This is a qualitative test and the resulted index value is not indicative of disease severity. ??Serial testing is recommended for patients at high risk for invasive aspergillosis. This assay was performed using the FDA-cleared [employer] Aspergillus Galactomannan EIA. Test Performed by: [address] [address] Head Of History: Rach Guillermo Ph.D.; CLIA# [id number] Blood 11/28/2023 1:10 AM CDT 11/28/2023 1:51 AM CDT us Suhail Alfredo MD LAB MICROBIOLOGY - GENERAL ORDER INO Final Result Performing Organization Address [facility] [place]/[facility] Co de Phone Number [facility] [place] [address] [facility] * Osmolality, blood (11/28/2023 1:10 AM CDT) Osmo 281 275 - 300 mOsm/kg Blood 11/28/2023 1:10 AM CDT 11/28/2023 1:29 AM CDT us Suhail Alfredo MD LAB BLOOD ORDERABLES Final Resul t Performing Organization Address [facility] de Phone Number [facility] Department [place] [address] * (ABNORMAL) Erythrocyte sedimentation rate (11/28/2023 1:10 AM CDT) Erythrocyte sedimentation rate 97(H) 1 - 30 mm/hr Blood 11/28/2023 1:10 AM CDT 11/28/2023 1:30 AM CDT Result Lux Alfredo MD LAB BLOOD ORDERABLES Final Resul t Performing Organization Address [facility] de Phone Number [facility] Department [place] [address] * (ABNORMAL) CRP (acute phase) (11/28/2023 1:10 AM CDT) CRP 173.3(H) <=10.0 mg/L Blood 11/28/2023 1:10 AM CDT 11/28/2023 1:29 AM CDT Result Lux Alfredo MD LAB BLOOD ORDERABLES Final Resul t Performing Organization Address [facility] [place]/[facility] Co de Phone Number CERNER [facility] [place] [address] * Phosphorus (11/28/2023 1:10 AM CDT) [facility] Phosphorus, pl 3.5 2.3 - 4.5 mg/dL Blood 11/28/2023 1:10 AM CDT 11/28/2023 1:29 AM CDT us Maxime Lee MD LAB BLOOD ORDERABLES Final R esult Performing Organization Address City/[facility] [place] [address] * Magnesium (11/28/2023 1:10 AM CDT) [facility] Magnesium 2.0 1.4 - 2.5 mg/dL Blood 11/28/2023 1:10 AM CDT 11/28/2023 1:29 AM CDT us Maxime Lee MD LAB BLOOD ORDERABLES Final R esult Performing Organization Address City/[facility] [place]/[facility] Co de Phone Number [facility] Department [place] [address] * (ABNORMAL) CBC with auto differential (11/28/2023 1:10 AM CDT) [facility] WBC 14.4(H) 3.8 - 9.9 K/cumm Hgb 7.8(L) 11.9 - 15.5 g/dL [facility] Hct 25.5(L) 35.6 - 45.5 % [facility] Plt 434(H) 150 - 400 K/cumm [facility] MPV 8.7(L) 9.1 - 12.3 fL [facility] RBC 3.04(L) 3.90 - 5.20 M/cumm [facility] MCV 83.9 81.3 - 96.4 fL [facility] MCH 25.7(L) 27.1 - 33.3 pg [facility] MCHC 30.6(L) 32.3 - 35.7 g/dL [facility] RDW CV 17.9(H) 11.1 - 14.9 % [facility] RDW SD 54.8(H) 35.7 - 48.1 fL [facility] NRBC abs 0.00 0.00 - 0.01 K/cumm [facility] Blood 11/28/2023 1:10 AM CDT 11/28/2023 1:29 AM CDT us Maxime Lee MD LAB BLOOD ORDERABLES Final R esult [facility] Department [place] [address] * (ABNORMAL) Basic metabolic panel (11/28/2023 1:10 AM CDT) Sodium 134(L) 135 - 145 mmol/L Potassium, pl 4.1 3.3 - 4.9 mmol/L [facility] Chloride 98 97 - 110 mmol/L [facility] CO2 28 22 - 32 mmol/L [facility] Anion gap 8 2 - 15 mmol/L [facility] BUN 15 6 - 25 mg/dL [facility] Creatinine 0.78 0.60 - 1.10 mg/dL [facility] Glucose 153 70 - 199 mg/dL [facility] Comment: Interpretive Data Fasting glucose >/= [...] 2022. Calcium 8.3(L) 8.5 - 10.3 mg/dL [facility] Blood 11/28/2023 1:10 AM CDT 11/28/2023 1:29 AM CDT Maxime Lee MD LAB BLOOD ORDERABLES Final R esult Performing Organization Address [facility] [place] Phone Number [facility] Department [place] [address] * Osmolality, urine (11/27/2023 9:00 PM CDT) Osmo, ur 644 mOsm/kg Urine 11/27/2023 9:00 PM CDT 11/28/2023 6:41 PM CDT Suhail Alfredo MD LAB URINE ORDERABLES Final Resul t Performing Organization Address [facility] Phone Number [facility] Department [place] [address] * Chloride, urine, random (11/27/2023 9:00 PM CDT) Chloride, ur 63 mmol/L Comment: Interpretive Data No reference range established. Current interpretive data was last revised 2018. Urine (Urine, Clean Catch) 11/27/2023 9:00 PM CDT 11/28/2023 6:41 PM CDT Suhail Alfredo MD LAB URINE ORDERABLES Final Resul t Performing Organization Address [facility] Phone Number [facility] Department [place] [address] * Potassium, urine, random (11/27/2023 9:00 PM CDT) Potassium conc, ur 85.6 mmol/L Comment: Interpretive Data No reference range established. Current interpretive data was last revised 2018. Urine (Urine, Clean Catch) 11/27/2023 9:00 PM CDT 11/28/2023 6:41 PM CDT us Suhail Alfredo MD LAB URINE ORDERABLES Final Resul t Performing Organization Address [facility] de Phone Number [facility] [place] [address] * Sodium, urine, random (11/27/2023 9:00 PM CDT) Sodium, ur 74 mmol/L Comment: Interpretive Data No reference range established. Current interpretive data was last revised 2018. Urine (Urine, Clean Catch) 11/27/2023 9:00 PM CDT 11/28/2023 6:41 PM CDT us Suhail Alfredo MD LAB URINE ORDERABLES Final Resul t Performing Organization Address [facility] de Phone Number [facility] Department [place] [address] * POCT glucose (11/27/2023 7:46 PM CDT) Glucose, POC 170 70 - 199 mg/dL Blood 11/27/2023 7:46 PM CDT 11/27/2023 7:46 PM CDT us Suhail Alfredo MD LAB POCT ORDERABLES - DEVICE Fin al Result Performing Organization Address [facility] de Phone Number [facility] [employer] [place] [address] * POCT glucose (11/27/2023 5:35 PM CDT) Glucose, POC 145 70 - 199 mg/dL Blood 11/27/2023 5:35 PM CDT 11/27/2023 5:35 PM CDT us Suhail Alfredo MD LAB POCT ORDERABLES - DEVICE Fin al Result Performing Organization [facility] [place] Co de Phone Number [facility] [place] [address] * POCT glucose (11/27/2023 11:45 AM CDT) Glucose, POC 179 70 - 199 mg/dL Blood 11/27/2023 11:4 5 AM CDT 11/27/2023 11:45 AM CDT Suhail Alfredo MD LAB POCT ORDERABLES - DEVICE Fin al Result Performing Organization Address [facility] [place] de Phone Number [facility] [place] [address] * POCT glucose (11/27/2023 7:54 AM CDT) Glucose, POC 141 70 - 199 mg/dL Blood 11/27/2023 7:54 AM CDT 11/27/2023 7:54 AM CDT Suhail Alfredo MD LAB POCT ORDERABLES - DEVICE Fin al Result Performing Organization Address [facility] [place] de Phone Number [facility] Department [place] [address] * Blastomyces antibody, EIA, serum Blood (11/27/2023 12:54 AM CDT) Pathologist [facility] [place] Blastomyces Antibody Negative Negative [facility] Comment: A single negative result does not exclude the diagnosis of blastomycosis. ??Repeat testing on a new sample in 7-14 days if clinically indicated. Test Performed by: [address] [address] Head Of History: Rach Guillermo Ph.D.; CLIA# [id number] Blood 11/27/2023 12:5 4 AM CDT 11/27/2023 1:05 AM CDT Suhail Alfreod MD LAB MICROBIOLOGY - GENERAL ORDER INO Final Result Performing Organization Address City/[facility] [place]/[facility] Co de Phone Number [facility] [place] [address] [facility] * HIV 1/2 Antibody plus p24 Antigen Blood (11/27/2023 12:53 AM CDT) HIV 1/2 ab + p24 ag Nonreactive [...] INO Final Result Performing Organization Address [facility] de Phone Number [facility] [place] [address] * Cryptococcal Antigen, Serum Blood (11/27/2023 12:53 AM CDT) Pathologist [facility] [place] Cryptococcus ag, Serum Negative Negative Comment: The [...] ORDER INO Final Result Performing Organization Address City/[facility] [place] Co de Phone Number GO ROB[facility] Department [place] [address] * Histoplasma Antibody Blood (11/27/2023 12:53 AM CDT) Histoplasma Ab, yeast CF Negative Negative [facility] Histoplasma Ab, Immunodiffusion Negative Negative [facility] Comment: A negative complement fixation and immunodiffusion (CF/ID) result does not exclude the diagnosis of histoplasmosis. ?? Repeat testing by CF/ID in 1-2 weeks if clinically indicated. Test Performed by: [facility] [address] [place] [address] Head Of History: Rach Guillermo Ph.D.; CLIA# [id number] Blood 11/27/2023 12:5 3 AM CDT 11/27/2023 1:05 AM CDT Suhail Alfredo MD LAB MICROBIOLOGY - GENERAL ORDER INO Final Result Performing Organization Address City/State/[facility] Co de Phone Number [facility] Department [place] [address] [facility] * Mycobacteriology (AFB) blood culture Blood (11/27/2023 12:53 AM CDT) Report Final Report: No growth Blood 11/27/2023 12:5 3 AM CDT 11/27/2023 1:45 AM CDT Narrative [facility] - 01/08/2024 7:01 AM [employer] Two separate sites Interpretive data: Mycobacterial blood [...] for optimal patient management. Testing performed by [facility] ([phone]). Current interpretive data was last revised on 2023. Suhail Alfredo MD LAB MICROBIOLOGY - GENERAL ORDER INO Final Result Performing Organization Address [facility] Co de Phone Number [facility] Abdullahi [facility] [place] [address] * Mycobacteriology (AFB) blood culture Blood (11/27/2023 12:53 AM CDT) Report Final Report: No growth Blood 11/27/2023 12:5 3 AM CDT 11/27/2023 1:45 AM CDT Narrative [facility] - 01/08/2024 7:01 AM [employer] Two separate sites Interpretive data: Mycobacterial blood [...] for optimal patient management. Testing performed by [facility] ([phone]). Current interpretive data was last revised on 2023. Suhail Alfredo MD LAB MICROBIOLOGY - GENERAL ORDER INO Final Result Performing Organization Address [facility] [place] de Phone Number [facility] Abdullah[facility] Department [place] [address] * Blood culture Blood (11/27/2023 12:53 AM CDT) Report Final Report: No growth Blood 11/27/2023 12:5 3 AM CDT 11/27/2023 1:38 AM CDT Narrative [facility] - 12/01/2023 7:00 AM CDT From [...] organism identification may be performed using the [employer] Gram-Positive Blood Culture Assay. This assay detects microbial DNA in positive blood culture broth via hybridization of target DNA to capture oligonucleotides on a microarray. This assay has been cleared by the [place] Food and Drug Administration and its performance characteristics have been verified by the [facility]. 5. ?For questions about this culture, contact the Microbiology Laboratory at [phone]. Interpretive data was last revised on 2019. Suhail Alfredo MD LAB MICROBIOLOGY - GENERAL ORDER INO Final Result [facility] Department [place] [address] * Blood culture Blood (11/27/2023 12:53 AM CDT) Report Final Report: No growth Blood 11/27/2023 12:5 3 AM CDT 11/27/2023 1:38 AM CDT Narrative [facility] - 12/01/2023 7:00 AM CDT Collection->Peripheral 1. [...] organism identification may be performed using the [employer] Gram-Positive Blood Culture Assay. This assay detects microbial DNA in positive blood culture broth via hybridization of target DNA to capture oligonucleotides on a microarray. This assay has been cleared by the [place] Food and Drug Administration and its performance characteristics have been verified by the [facility]. 5. ?For questions about this culture, contact the Microbiology Laboratory at [phone]. Interpretive data was last revised on 2019. Suhail Alfredo MD LAB MICROBIOLOGY - GENERAL ORDER INO Final Result Performing Organization Address [facility] Co de Phone Number GO [facility] Department [place] [address] * (ABNORMAL) POCT glucose (11/26/2023 10:20 PM CDT) [facility] Glucose, POC 223(H) 70 - 199 mg/dL Blood 11/26/2023 10:2 0 PM CDT 11/26/2023 10:20 PM CDT Suhail Alfredo MD LAB POCT ORDERABLES - DEVICE Fin al Result Performing Organization Address [facility] [place] Co de Phone Number [facility] Department [place] [address] * eGFR (11/26/2023 9:58 PM CDT) Pathologist [facility] [place] eGFR 70 >=60 mL/min/1. 73 m2 Comment: [...] MD LAB BLOOD ORDERABLES Final R esult [facility] Department [place] [address] * (ABNORMAL) Differential, auto (11/26/2023 9:58 PM CDT) Neutrophil abs 16.6(H) 1.5 - 6.5 K/cumm Imm gran abs 0.2(H) 0.0 - 0.1 K/cumm [facility] Lymphocyte abs 1.7 0.8 - 3.3 K/cumm [facility] Monocyte abs 2.0(H) 0.2 - 0.8 K/cumm [facility] Eosinophil abs 0.0 0.0 - 0.5 K/cumm [facility] Basophil abs 0.1 0.0 - 0.1 K/cumm [facility] Neutrophil pct 80.6 % [facility] Comment: Interpretive Data Percent cell count reference ranges are not reported, since discordance with absolute values may lead to misinterpretation of CBC data. Current Interpretive Data was last revised on 2017. Imm gran pct 0.9 % [facility] Comment: Interpretive Data Percent cell count reference ranges are not reported, since discordance with absolute values may lead to misinterpretation of CBC data. Current Interpretive Data was last revised on 2017. Lymphocyte pct 8.3 % [facility] Comment: Interpretive Data Percent cell count reference ranges are not reported, since discordance with absolute values may lead to misinterpretation of CBC data. Current Interpretive Data was last revised on 2017. Monocyte pct 9.7 % [facility] Comment: Interpretive Data Percent cell count reference ranges are not reported, since discordance with absolute values may lead to misinterpretation of CBC data. Current Interpretive Data was last revised on 2017. Eosinophil pct 0.2 % [facility] Comment: Interpretive Data Percent cell count reference ranges are not reported, since discordance with absolute values may lead to misinterpretation of CBC data. Current Interpretive Data was last revised on 2017. Basophil pct 0.3 % [facility] Comment: Interpretive Data Percent cell count reference ranges are not reported, since discordance with absolute values may lead to misinterpretation of CBC data. Current Interpretive Data was last revised on 2017. Blood 11/26/2023 9:58 PM CDT 11/26/2023 11:34 PM CDT us Maxime Lee MD LAB BLOOD ORDERABLES Final R esult [facility] Department [place] [address] * Phosphorus (11/26/2023 9:58 PM CDT) Phosphorus, pl 3.5 2.3 - 4.5 mg/dL Blood 11/26/2023 9:58 PM CDT 11/26/2023 11:34 PM CDT us Maxime Lee MD LAB BLOOD ORDERABLES Final R esult [facility] Department [place] [address] * Magnesium (11/26/2023 9:58 PM CDT) [facility] Magnesium 1.8 1.4 - 2.5 mg/dL Blood 11/26/2023 9:58 PM CDT 11/26/2023 11:34 PM CDT us Maxime Lee MD LAB BLOOD ORDERABLES Final R esult Performing Organization Address City/[facility] [place] Co de Phone Number [facility] Department [place] [address] * (ABNORMAL) CBC with auto differential (11/26/2023 9:58 PM CDT) [facility] WBC 20.6(H) 3.8 - 9.9 K/cumm Hgb 8.4(L) 11.9 - 15.5 g/dL [facility] Hct 27.2(L) 35.6 - 45.5 % [facility] Plt 459(H) 150 - 400 K/cumm [facility] MPV 9.2 9.1 - 12.3 fL [facility] RBC 3.31(L) 3.90 - 5.20 M/cumm [facility] MCV 82.2 81.3 - 96.4 fL [facility] MCH 25.4(L) 27.1 - 33.3 pg [facility] MCHC 30.9(L) 32.3 - 35.7 g/dL [facility] RDW CV 17.9(H) 11.1 - 14.9 % [facility] RDW SD 54.5(H) 35.7 - 48.1 fL [facility] NRBC abs 0.00 0.00 - 0.01 K/cumm [facility] Blood 11/26/2023 9:58 PM CDT 11/26/2023 11:34 PM CDT Maxime Lee MD LAB BLOOD ORDERABLES Final R esult Performing Organization Address City/[facility] [place]/ZIP Co de Phone Number [facility] Department [place] [address] * (ABNORMAL) Basic metabolic panel (11/26/2023 9:58 PM CDT) [facility] Sodium 127(L) 135 - 145 mmol/L Potassium, pl 4.3 3.3 - 4.9 mmol/L [facility] Chloride 90(L) 97 - 110 mmol/L [facility] CO2 26 22 - 32 mmol/L [facility] Anion gap 11 2 - 15 mmol/L [facility] BUN 19 6 - 25 mg/dL [facility] Creatinine 0.91 0.60 - 1.10 mg/dL [facility] Glucose 186 70 - 199 mg/dL [facility] Comment: Interpretive Data Fasting glucose >/= [...] 2022. Calcium 8.6 8.5 - 10.3 mg/dL [facility] Blood 11/26/2023 9:58 PM CDT 11/26/2023 11:34 PM CDT us Maxime Lee MD LAB BLOOD ORDERABLES Final R esult Performing Organization Address [facility] [place] Co de Phone Number [facility] Department [place] [address] * POCT glucose (11/26/2023 5:27 PM CDT) Glucose, POC 141 70 - 199 mg/dL Blood 11/26/2023 5:27 PM CDT 11/26/2023 5:27 PM CDT us Suhail Alfredo MD LAB POCT ORDERABLES - DEVICE Fin al Result Performing Organization Address City/State/[facility] Co la Phone Number [facility] Department [place] [address] * CT Chest Abdomen Pelvis W Contrast [...] * POCT glucose (11/26/2023 11:49 AM CDT) [facility] Glucose, POC 198 70 - 199 mg/dL Blood 11/26/2023 11:4 9 AM CDT 11/26/2023 11:49 AM CDT us Suhail Alfredo MD LAB POCT ORDERABLES - DEVICE Fin al Result [facility] Department [place] [address] * POCT glucose (11/26/2023 9:06 AM CDT) Glucose, POC 145 70 - 199 mg/dL Blood 11/26/2023 9:06 AM CDT 11/26/2023 9:06 AM CDT Suhail Alfredo MD LAB POCT ORDERABLES - DEVICE Fin al Result Performing Organization Address [facility] Co de Phone Number [facility] [place] [address] * Infection Prevention VRE Culture Stool (11/26/2023 1:10 AM CDT) Pathologist [facility] [place] Report Final Report: Negative Stool 11/26/2023 1:10 AM CDT 11/26/2023 6:20 AM CDT Narrative [facility] - 11/28/2023 7:46 AM CDT Surveillance culture for Infection Prevention purposes only; results indicate colonization, not infection requiring treatment. Testing performed by [facility] ([phone]). Suhail Alfredo MD LAB MICROBIOLOGY - GENERAL ORDER INO Final Result Performing Organization Address [facility] de Phone Number [facility] Department [place] [address] * C. difficile testing Stool (11/26/2023 1:10 AM CDT) [facility] Result Negative Negative Toxin Result Negative Negative [facility] C. diff result Negative, free toxin Negative, free toxin [facility] C. diff interp Negative for toxigenic Clostridioides (Clostridium) difficile. Analysis was performed using a glutamate dehydrogenase antigen detection assay combined with a C. difficile toxin detection assay. [facility] Stool 11/26/2023 1:10 AM CDT 11/26/2023 4:04 AM CDT Maxime Lee MD LAB MICROBIOLOGY - GENERAL O RDERABLES Final Result Performing Organization Address [facility] Co de Phone Number [facility]ERNER [facility] Department [place] [address] * eGFR (11/25/2023 10:52 PM CDT) eGFR [...] LAB BLOOD ORDERABLES Final R esult [facility] Department [place] [address] * Type and screen (11/25/2023 10:52 PM CDT) ABO Rh O Positive Maira, indirect Negative [facility] Blood 11/25/2023 10:5 2 PM CDT 11/25/2023 11:07 PM CDT Narrative [facility] - 11/26/2023 12:00 AM CDT Has the patient had Daratumumab or Isatuximab in the past 6 months?->Unknown Maxime Lee MD LAB BLOOD BANK TEST ORDERABL ES Final Result Performing Organization Address [facility] de Phone Number [facility] Department [place] [address] * (ABNORMAL) Protime-INR (11/25/2023 10:52 PM CDT) PT 18.8(H) 9.7 - 13.0 sec INR 1.72(H) 0.90 - 1.20 [facility] Comment: Interpretive data Oral anticoagulant therapeutic ranges: Venous thromboembolism prophylaxis or treatment: 2.0-3.0 CARDIOLOGY Standard range: 2.0-3.0 High-intensity range: 2.5-3.5 Refer to indication-specific guidelines for appropriate target ranges for prosthetic heart valve replacement. Current interpretive data was last revised on 2019. Blood 11/25/2023 10:5 2 PM CDT 11/25/2023 11:28 PM CDT Maxime Lee MD LAB BLOOD ORDERABLES Final R esult Performing Organization Address [facility] Co de Phone Number [facility] Department [place] [address] * aPTT (11/25/2023 10:52 PM CDT) aPTT 36 28 - 38 sec Comment: Interpretive Data Heparin therapeutic range: 66.0 - 100.0 seconds. Range based on correlation with therapeutic heparin activity range of 0.3 - 0.7 Units/mL. Current interpretive data was last revised on 2022. Blood 11/25/2023 10:5 2 PM CDT 11/25/2023 11:28 PM CDT Maxime Lee MD LAB BLOOD ORDERABLES Final R esult Performing Organization Address [facility] Co de Phone Number [facility] [place] [address] * Phosphorus (11/25/2023 10:52 PM CDT) Pathologist [facility] Phosphorus, pl 3.0 2.3 - 4.5 mg/dL Blood 11/25/2023 10:5 2 PM CDT 11/25/2023 11:05 PM CDT us Maxime Lee MD LAB BLOOD ORDERABLES Final R esult Performing Organization Address [facility] de Phone Number [facility] [place] [address] * Magnesium (11/25/2023 10:52 PM CDT) [facility] Magnesium 2.0 1.4 - 2.5 mg/dL Blood 11/25/2023 10:5 2 PM CDT 11/25/2023 11:05 PM CDT Maxime Lee MD LAB BLOOD ORDERABLES Final R esult Performing Organization Address [facility] de Phone Number [facility] [place] [address] * (ABNORMAL) CBC without differential (11/25/2023 10:52 PM CDT) [facility] WBC 16.6(H) 3.8 - 9.9 K/cumm Hgb 8.6(L) 11.9 - 15.5 g/dL [facility] Hct 28.1(L) 35.6 - 45.5 % [facility] Plt 430(H) 150 - 400 K/cumm [facility] MPV 9.0(L) 9.1 - 12.3 fL [facility] RBC 3.39(L) 3.90 - 5.20 M/cumm [facility] MCV 82.9 81.3 - 96.4 fL [facility] MCH 25.4(L) 27.1 - 33.3 pg [facility] MCHC 30.6(L) 32.3 - 35.7 g/dL [facility] RDW CV 17.9(H) 11.1 - 14.9 % [facility] RDW SD 54.2(H) 35.7 - 48.1 fL [facility] NRBC abs 0.00 0.00 - 0.01 K/cumm [facility] Blood 11/25/2023 10:5 2 PM CDT 11/25/2023 11:05 PM CDT us Maxime Lee MD LAB BLOOD ORDERABLES Final R esult Performing Organization Address [facility] Co de Phone Number [facility] Department [place] [address] * (ABNORMAL) Basic metabolic panel (11/25/2023 10:52 PM CDT) Sodium 130(L) 135 - 145 mmol/L Potassium, pl 4.6 3.3 - 4.9 mmol/L [facility] Chloride 95(L) 97 - 110 mmol/L [facility] CO2 26 22 - 32 mmol/L [facility] Anion gap 9 2 - 15 mmol/L [facility] BUN 18 6 - 25 mg/dL [facility] Creatinine 0.81 0.60 - 1.10 mg/dL [facility] Glucose 128 70 - 199 mg/dL [facility] Comment: Interpretive Data Fasting glucose >/= [...] 2022. Calcium 8.7 8.5 - 10.3 mg/dL [facility] Blood 11/25/2023 10:5 2 PM CDT 11/25/2023 11:05 PM CDT Maxime Lee MD LAB BLOOD ORDERABLES Final R esult [facility] [place] [employer] [place] [address] * POCT glucose (11/25/2023 9:45 PM CDT) [facility] Glucose, POC 147 70 - 199 mg/dL Blood 11/25/2023 9:45 PM CDT 11/25/2023 9:45 PM CDT Maxime Lee MD LAB POCT ORDERABLES - DEVICE Final Result Performing Organization Address City/[facility]/ZIP Co de Phone Number [facility] Department [place] [employer] [place] [address] * Respiratory pathogen panel Nasopharyngeal (11/25/2023 9:40 PM CDT) [facility] Influenza A RNA Not Detected Not Detected Influenza B RNA Not Detected Not Detected [facility] RSV RNA Not Detected Not Detected [facility] COVID-19 RNA Not Detected Not Detected [facility] Coronavirus 229E RNA Not Detected Not Detected [facility] Coronavirus HKU1 RNA Not Detected Not Detected [facility] Coronavirus NL63 RNA Not Detected Not Detected [facility] Coronavirus OC43 RNA Not Detected Not Detected [facility] Adenovirus DNA Not Detected Not Detected [facility] Metapneumovirus RNA Not Detected Not Detected [facility] Rhinovirus/Enterov irus RNA Not Detected Not Detected [facility] Parainfluenza 1 RNA Not Detected Not Detected [facility] Parainfluenza 2 RNA Not Detected Not Detected [facility] Parainfluenza 3 RNA Not Detected Not Detected [facility] Parainfluenza 4 RNA Not Detected Not Detected [facility] B. pertussis DNA Not Detected Not Detected [facility] B. parapertussis DNA Not Detected Not Detected [facility] C. pneumoniae DNA Not Detected Not Detected [facility] M. pneumoniae DNA Not Detected Not Detected [facility] Nasopharyngeal 11/25/2023 9: 40 PM CDT 11/25/2023 10:01 PM CDT Narrative CERNER BJ - 11/25/2023 10:54 PM CDT Is the Patient experiencing symptoms consistent with COVID?->Unknown Surveillance testing for transplant patient?->No ??Interpretive Data The Burt FilmArray Respiratory Panel (RP2.1) assay is a [...] assay has FDA clearance for testing of LOG SNAKER swabs. ??The performance of additional specimen types has been assessed by the performing laboratory. ??The performance characteristics of this assay have been determined by [facility] Molecular Infectious Disease Laboratory. Current interpretive data was last revised on 21. us Maxime Lee MD LAB MICROBIOLOGY - GENERAL O RDERABLES Final Result [facility] Department [place] [address] documented in this encounter Visit Diagnoses Diagnosis [...] unspecified Ulcerative pancolitis with complication (CMS/HCC) (HCC) Ulcerative pancolitis with complication (CMS/HCC) (HCC) documented [...] 2100, Indications: PainIndications:Pain Given 12/30/2023 4:13 PM INSOLE AND HEEL STIFFENER 1,000 mg Given 12/30/2023 9:43 AM INSOLE AND HEEL STIFFENER 1,000 mg Given 12/29/2023 9:35 PM INSOLE AND HEEL STIFFENER 1,000 mg Carrier Fluids for Secondary Infusion - 0.9% Sodium Chloride 30 mL, intravenous, As needed, For priming tubing and/or flushing, Starting on Fri12/24/23 at 1840, 0-250 ml/hr to flush line after IV infusions when no maintenance IV ordered. Infuse 30mL at the same rate as the secondary infusion. Run as primary IV, not intended for KVO. Given 12/25/2023 10:13 AM INSOLE AND HEEL STIFFENER 30 mL clindamycin (CLEOCIN) 600 mg, gentamicin (GARAMYCIN) 240 mg in sodium chloride 0.9% 500 mL irrigation solution irrigation, Once as needed, surgical prophylaxis, Starting on Fri12/24/23 at 1155, For 1 dose, Intra-Op Given 12/24/2023 2:32 PM INSOLE AND HEEL STIFFENER 500 mL Allison gical Site dextrose (D10W) 10% bolus 250 mL 250 [...] for each episode of hypoglycemia., Indications: hypoglycemic disorderIndications:hypoglycemic disorder dextrose gel in packet 15 g [...] for each episode of hypoglycemia., Indications: hypoglycemic disorderIndications:hypoglycemic disorder enoxaparin (LOVENOX) syringe 40 mg 40 mg, subcutaneous, Daily (for enoxaparin), First dose on Fri12/24/23 at 2100, Indications: Deep Vein Thrombosis PreventionIndications:Deep Vein Thrombosis Prevention Given 12/29/2023 9:35 PM INSOLE AND HEEL STIFFENER 40 mg Right Upper Arm Given 12/28/2023 10:13 PM INSOLE AND HEEL STIFFENER 40 mg L eft Lower Abdomen Given 12/25/2023 9:42 PM INSOLE AND HEEL STIFFENER 40 mg Le ft Upper Arm gabapentin (NEURONTIN) capsule 300 mg 300 mg, oral, Every 12 hours scheduled, First dose on Fri12/24/23 at 2100, Indications: PainIndications:Pain Given 12/30/2023 9:43 AM INSOLE AND HEEL STIFFENER 300 mg Given 12/29/2023 9:35 PM INSOLE AND HEEL STIFFENER 300 mg Given 12/29/2023 7:47 AM INSOLE AND HEEL STIFFENER 300 mg ibuprofen (ADVIL,MOTRIN) tablet 600 mg 600 mg, oral, Every 8 hours scheduled, First dose on Fri12/27/23 at 2200, Start ibuprofen after the ketorolac doses are finished., Indications: PainIndications:Pain Given 12/30/2023 1:35 PM INSOLE AND HEEL STIFFENER 600 mg Given 12/30/2023 5:24 AM INSOLE AND HEEL STIFFENER 600 mg Given 12/29/2023 9:35 PM INSOLE AND HEEL STIFFENER 600 mg insulin lispro (HumaLOG, ADMELOG) 100 [...] Diabetes MellitusIndications:Diabetes Mellitus Given 12/24/2023 8:46 PM INSOLE AND HEEL STIFFENER 1 Units Left Upper Arm insulin lispro [...] Diabetes MellitusIndications:Diabetes Mellitus Given 12/30/2023 1:35 PM INSOLE AND HEEL STIFFENER 1 Units Left Upper Arm Given 12/29/2023 6:02 PM INSOLE AND HEEL STIFFENER 1 Units Ri ght Upper Arm Given 12/28/2023 12:46 PM INSOLE AND HEEL STIFFENER 1 Units L eft Lower Abdomen oxyCODONE (ROXICODONE) tablet 5 mg 5 mg, oral, Every 4 hours PRN, 1st line for pain, Starting on Fri12/26/23 at 0824, Indications: PainIndications:Pain Given 12/30/2023 9:43 AM INSOLE AND HEEL STIFFENER 5 mg Given 12/29/2023 1:50 PM INSOLE AND HEEL STIFFENER 5 mg Given 12/29/2023 9:46 AM INSOLE AND HEEL STIFFENER [address] (PROTONIX) extended release tablet 40 mg 40 mg, oral, Daily, First dose on Fri12/24/23 at 1915, Do not crush, chew, cut, dissolve, open or otherwise manipulate tablet/capsule., Indications: Stress Ulcer ProphylaxisIndications:Stress Ulcer Prophylaxis Given 12/30/2023 9:43 AM INSOLE AND HEEL STIFFENER 40 mg Given 12/29/2023 7:47 AM INSOLE AND HEEL STIFFENER 40 mg Given 12/28/2023 8:43 AM INSOLE AND HEEL STIFFENER 40 mg polyethylene glycol (MIRALAX) packet 17 g 17 g, oral, Daily, First dose on Fri12/30/23 at 0900, Indications: constipationIndications:constipation sodium chloride 0.9% flush 0.5-20 mL 0.5-20 mL, intra-catheter, Every 8 hours scheduled (alternate), First dose on Fri12/24/23 at 1915, Flush volume based on line type and size. Given 12/30/2023 9:44 AM INSOLE AND HEEL STIFFENER 10 mL Given 12/29/2023 6:04 PM INSOLE AND HEEL STIFFENER 10 mL Given 12/29/2023 7:48 AM INSOLE AND HEEL STIFFENER 10 mL sodium chloride 0.9% irrigation As needed, Starting on Fri12/24/23 at 1241, Intra-Op Given 12/24/2023 2:07 PM INSOLE AND HEEL STIFFENER 1,000 mL Surgical Site Given 12/24/2023 1:44 PM INSOLE AND HEEL STIFFENER 1,000 mL La rgical Site Given 12/24/2023 12:41 PM INSOLE AND HEEL STIFFENER 1,000 mL S urgical Site sterile water irrigation As needed, Starting on Fri12/24/23 at 1343, Intra-Op Given 12/24/2023 1:43 PM INSOLE AND HEEL STIFFENER 1,000 mL Other (Comment) documented in this encounter Discontinued Medications Medication [...] Recently Administered Medications Times are shown in INSOLE AND HEEL STIFFENER. Scheduled Medication Order 12/28/2023 12/29/2023 12/30/2023 acetaminophen [...] Every 24 hours scheduled, First dose on 12/27/23 at 1215, For 3 doses, Indications: Abdominal/Pelvic Infection 1100 (Given - Provider: Yakelin Hill) 1159 (Given - Provider: Yakelin Hill) enoxaparin (LOVENOX) syringe 40 mg 40 mg, subcutaneous, Daily (for enoxaparin), First dose on Fri12/24/23 at 2100, Indications: Deep Vein Thrombosis Prevention 0849 (Unheld by Provider - Provider: Dylon Batres MD)221 (Given - Provider: Tiffanie Vela) 213 (Given - Provider: Tiffanie Vela) gabapentin (NEURONTIN) capsule 300 mg 300 mg, oral, Every 12 hours scheduled, First dose on Fri12/24/23 at 2100, Indications: Pain 0844 (Given - Provider: Yakelin Hill)2214 (Given - Provider: Tiffanie Vela) 0747 (Given - Provider: Yakelin Hill)2135 (Given - Provider: Tiffanie eVla) 0943 (Given - Provider: Ana Luisa Hoff RN) ibuprofen (ADVIL,MOTRIN) tablet 600 mg(Linked Group 1) 600 mg, oral, Every 8 hours scheduled, First dose on Sat 24 at 2200, Start ibuprofen after the ketorolac doses are finished., Indications: Pain 0608 (Given - Provider: Narcisa Ibarra RN)1403 (Given - Provider: Yakelin Hill)2214 (Given - Provider: Tiffanie Vela) 0616 (Not Given - Provider: Tiffanie Vela - Reason: Patient/family refused)1350 (Given - Provider: Yakelin Hill)2135 (Given - Provider: Tiffanie Vela) 0524 (Given [...] parameters not met)1159 (Not Given - Provider: Yakeiln Hill - Reason: Order parameters not met)1802 (Given - Provider: Yakelin Hill) 0943 (Not Given - Provider: Ana Luisa Hoff RN - Reason: Order parameters not met)1335 (Given - Provider: Ana Luisa Hoff RN)1800 (Due) linezolid (ZYVOX) tablet 600 mg (COMPLETED) 600 mg, oral, 2 times daily, First dose on Fri12/25/23 at 1415, For 10 doses, Indications: Abdominal/Pelvic [...] - Provider: Tiffanie Vela - Reason: Other) 9463 (Given - Provider: Ana Luisa Hoff RN)8788 (Not Given - Provider: Ana Luisa Hoff [...] minute until desired level of alertness. Stop SOFTWARE CONFIGURATION MANAGER and notify covering MD. This order has been ordered with SOFTWARE CONFIGURATION MANAGER infusion, please review upon the discontinuation of SOFTWARE CONFIGURATION MANAGER. For IV, administer over 30 seconds., Indications: [...] Provider: Yakelin Hill)1350 (Given - Provider: Yakelin Hill)1803 (Return to Cabinet - Provider: Yakelin Hill [...] 12/30/2023 11/25/2023 ibuprofen (ADVIL,MOTRIN) tablet 600 mg 2 12/24/2023 cefTRIAXone (ROCEPHIN) 2,000 mg/20 mL in sterile water (premix) 2,000 mg 1 12/27/2023 ioversoL (OPTIRAY 350) syringe 75 mL 3 10/202311/26/2023 oxyCODONE (ROXICODONE) tablet 5 mg 2 202312/24/2023 sodium chloride 0.9% IVPB 0-250 mL 2 202312/25/2023 Lactated Ringer's (LR) bolus 1,000 mL 6 08/202312/04/2023 Lactated Ringer's (LR) bolus 500 mL 2 12/2412/09/2023 linezolid (ZYVOX) tablet 600 mg 1 piperacillin-tazobactam (ZOS YN) 3.375 gram/65 mL in sodium chloride 0.9% (premix) 3.375 g 1 12/25/2023 acetaminophen (TYLENOL) tablet 1,000 mg 5 1 02/22/2023 12/09/2023 acetaminophen (TYLENOL) tablet 500 mg 1 07/2023 alvimopan (ENTEREG) capsule 12 mg 2 024 Carrier Fluids for Secondary Infusion - 0.9% Sodium Chloride 3 12/24/2023 11/28/2023 ciprofloxacin (CIPRO) tablet 500 mg 2 12/2311/25/2023 dextrose (D10W) 10% bolus 250 mL 2 12/24/19 24 11/25/2023 dextrose gel in packet 15 g 2 12/24/2023 11/25/2023 diphenhydrAMINE (BENADRYL) 5 0 mg/mL injection 12.5 mg 1 12/24/2023 enoxaparin (LOVENOX) syringe 40 mg 3 202311/25/2023 ertapenem (INVanz) 1,000 mg in sterile water 10 mL (100 mg/mL) IV syringe 2 12/24/202312/08 gabapentin (NEURONTIN) capsule 300 mg 2 07/2023 glucagon injection 1 mg 2 12/24/2023 1009/2023 haloperidol (HALDOL) injection 1 mg 1 12/23 heparin 5,000 unit/mL inject ion 5,000 Units 1 12/24/2023 HYDROmorphone (DILAUDID) injection 0.2 mg 1 12/24/2023 HYDROmorphone (DILAUDID) injection 0.4 mg 1 12/24/2023 HYDROmorphone in 0.9% sodium chloride (DILAUDID) 20 mg/100 mL (0.2 mg/mL) (premix) 2 12/24/2023 insulin lispro (HumaLOG, ADM ELOG) 100 unit/mL injection 0-4 Units 2 12/24/2023 11/25/2023 insulin lispro (HumaLOG, ADM ELOG) 100 unit/mL injection 0-5 Units 4 12/24/2023 11/25/2023 ketorolac (TORADOL) 30 mg/mL injection 15 mg 1 12/24/2023 Lactated Ringer's (LR) infusion 4 4 12/04/2023 metroNIDAZOLE (FLAGYL) tablet 500 mg 3 07/202311/25/2023 naloxone (NARCAN) 0.4 mg/mL injection 0.04-0.4 mg 2 12/24/2023 ondansetron (ZOFRAN) injection 4 mg 3 12/2311/25/[address] (PROTONIX) e xtended release tablet 40 mg 3 12/24/2023 11/25/2023 prochlorperazine (COMPAZINE) injection 5 mg 1 12/24/2023 sodium chloride 0.9% flush 0.5-20 mL 4 07/202311/28/2023 bisacodyl EC (DULCOLAX EC) tablet 5 mg 1 magnesium sulfate 2 g/50 mL in water (premix) 2 g 6 12/23/2023 12/04/2023 neomycin (MYCIFRADIN) tablet 1,000 mg 1 06/2023 ondansetron ODT (ZOFRAN-ODT) disintegrating tablet 8 mg 1 12/23/2023 polyethylene glycol (GoLYTEL Y) solution 4,000 mL 1 12/23/2023 polyethylene glycol (MIRALAX ) bulk powder 238 g 1 12/23/2023 psyllium (aspartame) SF (MET AMUCIL SF) 3.4 gram packet 1 packet 1 12/17/2023 potassium chloride ER (KLOR- CON) extended release tablet 20 mEq 1 12/11/2023 metoclopramide (REGLAN) 5 mg /mL injection 5 mg 1 12/09/2023 metoprolol (LOPRESSOR) injection 12.5 mg 1 12/09/2023 metoprolol (LOPRESSOR) injection 2.5 mg 1 1 midodrine (PROAMATINE) tablet 5 mg 1 2023 benzocaine-menthoL (CHLORASE PTIC) lozenge 1 lozenge 1 12/08/2023 losartan (COZAAR) tablet 25 mg 2 12/07/2023 11/25/2023 al & mag hydroxide zsjugsawujx-pfeinhwaviiouny-cjdlgixrs-nyst atin (MAGIC MOUTHWASH) oral suspension 1--1-1 15 mL 1 12/06/2023 aluminum & magnesium nphdpeaxv-krpwrnswvps-prduphwbyorjuuy-lido maira (MAGIC MOUTHWASH) oral suspension 1-1-1 15 mL 1 12/06/2023 potassium chloride (KLOR-CON ) packet 20 mEq 1 12/06/2023 potassium chloride ER (KLOR- CON) extended release tablet 10 mEq 1 12/06/2023 insulin lispro (HumaLOG, ADM ELOG) 100 unit/mL injection 0-10 Units 2 12/05/2023 12/03/2023 fludeoxyglucose F-18 (FDG) i njection 15 millicurie 1 12/04/2023 guaiFENesin ER (MUCINEX) ext ended release tablet 1,200 mg 1 12/04/2023 metoprolol (LOPRESSOR) 5 mg/ 5 mL injection - ADS Override Pull 1 12/04/2023 piperacillin-tazobactam (ZOS YN) 4.5 gram/120 mL in sodium chloride 0.9% (premix) 4.5 g 1 12/04/2023 sodium chloride 0.9% bolus 1,000 mL 1 12/03 vancomycin 750 mg/257.5 mL i n sodium chloride 0.9% (premix) 750 mg 1 12/04/2023 multivitamin with folic acid 400 mcg tablet 1 tablet 1 12/01/2023 al & mag hydroxide gzzoxmoevhn-sfkbzbvtjmrqpnn-qqfzhsivv-nyst atin (MAGIC MOUTHWASH) oral suspension 1-1-1-1 10 mL 1 11/30/2023 fentaNYL (SUBLIMAZE) preserv ative free injection 1 11/28/2023 folic acid (FOLVITE) tablet 1 mg 1 11/28/19 lidocaine (PF) (XYLOCAINE) 2 0 mg/mL (2 %) preservative free injection 4 mL 2 11/28/2023 lidocaine (XYLOCAINE) 10 mg/ mL (1 %) injection 1 11/28/2023 loperamide (IMODIUM) capsule 2 mg 1 midazolam (VERSED) 1 mg/mL injection 1 11/17 multivitamin 10 mL in sodium chloride 0.9% 500 mL IVPB 1 11/28/2023 phenoL (CHLORASEPTIC) 1.4 % oral spray 1 spray 1 11/28/2023 phytonadione (VITAMIN K1) 2. 5 mg in dextrose 5% 50 mL IVPB 1 11/28/2023 pyridoxine (VITAMIN B6) tablet 100 mg 1 12/2023 sodium chloride 0.9% bolus 1 11/28/2023 thiamine (VITAMIN B-1) 500 m g in sodium chloride 0.9% 100 mL IVPB 1 11/28/2023 thiamine (VITAMIN B1) tablet 100 mg 1 11/27 phytonadione (VITAMIN K1) tablet 2.5 mg 1 1 benzonatate (TESSALON) capsule 100 mg 1 10/2023 acetaminophen (TYLENOL) tablet 650 mg 1 09/2023 ramelteon (ROZEREM) tablet 8 mg 1 Lab [...] COLORECTAL SURGERY 1 12/02/19 IP CONSULT TO RECREATION PROGRAM SPECIALIST 1 12/02/2023 CONSULT TO PULMONARY - INTERVENTIONAL 1 11/2023 IP CONSULT TO PULMONOLOGY 1 11/27/2023 CONSULT TO GENERAL INFECTIOUS DISEASE 1 10/2023 IP CONSULT TO GASTROENTEROLOGY 1 11/26/2023 IP CONSULT TO NUTRITION SERVICES 1 11/26/19 24 Isolation Count Last Ordered Date First Orde [...] t Ordered Date PROVIDER TREATMENT TEAM 2 12/24/2023 1009/2023 documented in this encounter Additional Health Concerns [...] the floor. 11/26/2023 11/26/2023 12/27/2023 11:50 PM INSOLE AND HEEL STIFFENER Tuberculosis (rule out) Comment:12/02/2023 IP Review: patient with negative BAL and lung biopsy not showing concern for TB infection, OK to come off precautions. Cherrie Escobedo RN 11/27/2023 11/27/20232023 12:49 PM CDT MDR gram neg/ESBL 12/24/2023 12/24/2023 VRE 12/24/2023 12/24/2023 documented as of this encounter Care Teams Medical Device Engineer Relationship Specialty Start Date End Date Kaushal Heath MD [address] [place] [address] PCP - General Internal Medicine 10/30/23 Bigg Delarosa MD [address] [place] [address] Referring Physician Gastroenterology 10/15/23 Jefe Choe MD [address] [facility] [address] [facility] [address] [place] [address] Referring Physician Gastroenterology 10/15/23 Melissa Rhodes MD [address] [facility], [address] [address] Consulting Physician Gynecologic Oncology 10/30/23 documented as of this encounter
--- OUTSIDE RECORDS SUMMARY | 2024-02-08 04:08 | XMS_ITS | Encounter Summary ---
Author Organization [facility] Address [address] [place] [address] Phone Care Team Providers Care Entry Level Civil Engineer Name Role Phone Bigg Delarosa MD Unavailable [phone] Jefe Choe MD Unavailable + Melissa Rhodes MD Unavailable [phone] Kaushal Heath MD Primary Care Provider + [phone] Reason for Visit * Reason Onset Date Comments Treatment Plan Update 11/25/2023 11/25/2023 [facility] Encounter Details Date Type Department Care Team (Late st Contact Info) Description 11/25/2023 Documentation [facility] Gastroenterology [address] [facility] 12th [place] [address] [place] [id number] Che Gamble RN Treatment Plan Update (11/25/2023 rov) Social History Tobacco Use Types Packs/Day Years Used Date Smoking Tobacco: Never Smokeless Tobacco: Never [facility] Utilities Answer Date Recorded In the past 12 months has [employer] electric, gas, oil, or water company threatened to shut off services in your home? Patient unable to answer 11/26/2023 Social Connection and Isolation Panel [NHANES] A nswer Date Recorded In a typical week, how many times do you talk on the phone with family, friends, or neighbors? Patient unable to answer 11/26/2023 How often do you get togethe r with friends or relatives? Patient unable to answer 11/26/2023 How often do you attend chur or evangelical services? Patient unable to answer 11/26/2023 Do you belong to any clubs o r organizations such as muslim groups, unions, fraternal or athletic groups, or school groups? Patient unable to answer 11/26/2023 How often do you attend meet ings of the clubs or organizations you belong to? Patient unable to answer 11/26/2023 Are you , , di vorced, , never , or living with a partner? Patient unable to answer 11/26/2023 AUDIT-C Answer Date Recorded Q1: How often [...] like food, housing, medical care, and heating? Patient unable to answer 11/26/2023 Hunger Vital Sign Answer Date Recorded Within the past 12 months, y ou worried that your food would run out before you got the money to buy more. Patient unable to answer 11/26/2023 Within the past 12 months, t he food you bought just didn't last and you didn't have money to get more. Patient unable to answer 11/26/2023 PRAPARE - Transportation Answer Date Re corded In the past 12 months, has l ack of transportation kept you from medical appointments or from getting medications? Patient unable to answer 11/26/2023 In the past 12 months, has l ack of transportation kept you from meetings, work, or from getting things needed for daily living? Patient unable to answer 11/26/2023 Housing Stability Vital Sign Answer Robin e Recorded In the last 12 months, was t here a time when you were not able to pay the mortgage or rent on time? Patient unable to answer 11/26/2023 In the past 12 months, how m any times have you moved where you were living? 0 11/26/2023 At any time in the past 12 m [facility], were you homeless or living in a care home (including now)? Patient unable to answer 11/26/2023 Personal Safety Answer Date Recorded Have you [...] Progress Notes * Che Gamble RN - 11/25/2023 10:22 AM CDT Plan per Erich: - pt not doing well in outpt setting - needs hospital admission, see how long wait time is for bed at [facility] Called [phone], option 3, option 11, option 1. Spoke to Eliz. She estimated a bed would be available in 12-36 hours. Total call time: 2:36 Information relayed to Erich. Was instructed to proceed w/ admission process. Called med triage. Spoke with Dr. Maxime Lee. Provided SBAR. He agreed pt would be appropriate for admission. Total call time: 3:03 Called pt placement. Spoke with Eliz. Make reservation for pt. Total call time: 2:52 documented in this encounter Plan of Treatment Not on file documented as of this encounter Visit Diagnoses Not on filedocumented in this encounter Care Teams Entry Level Civil Engineer Relationship Specialty Start Date End Date Kaushal Heath MD [address] [place] [address] PCP - General Internal Medicine 10/30/23 Bigg Delarosa MD [address] [place] [address] Referring Physician Gastroenterology 10/15/23 Jefe Choe MD [address] [place] [address] Referring Physician Gastroenterology 10/15/23 Melissa Rhodes MD [address] [facility], [address] [address] Consulting Physician Gynecologic Oncology 10/30/23 documented as of this encounter
--- OUTSIDE RECORDS SUMMARY | 2024-02-08 04:08 | XMS_ITS | Encounter Summary ---
Author Organization [facility] Address [address] [place] [address] Phone Care Team Providers Care Buyer Name Role Phone Bigg Delarosa MD Unavailable [phone] Jefe Choe MD Unavailable + Melissa Rhodes MD Unavailable [phone] Kaushal Heath MD Primary Care Provider [phone] Encounter Details Date Type Department Care Team (Late st Contact Info) Description 11/25/2023 9:00 AM CDT Office Visit [facility] Gastroenterology [address] [facility] [address] 12th [place] [address] [place] [address] Gildardo Jung MD [address] [place], [place] [id number] History of chronic ulcerative colitis (Primary Dx); Moderate protein-calorie malnutrition (CMS/HCC) (HCC) Social History Tobacco Use Types Packs/Day Years Used Date Smoking Tobacco: Never Smokeless Tobacco: Never Tobacco Cessation:Counseling Given: Not Answered [facility] Utilities Answer Date Recorded In the [...] How often do you attend chur or shinto services? Patient unable to answer 11/26/2023 Do [...] any time in the past 12 m [facility], were you homeless or living in a intermediate (including now)? Patient unable to answer 11/26/2023 [...] Sign Reading Time Taken Comments Blood Pressure 111/68 11/25/2023 9:07 AM CDT Pulse 114 11/25/2023 9:07 AM CDT Temperature 36.7 ??C (98.1 ??F) 11/25/2023 9:07 AM CD T Respiratory Rate - - Oxygen Saturation - - Inhaled Oxygen Concentration - - Weight 58.2 kg (128 lb 3.2 oz) 11/25/2023 9:07 A M CDT Height 154.9 cm (5' 1 ) 11/25/2023 9:07 AM CDT Body Mass Index 24.22 11/25/2023 9:07 AM CDT documented in this encounter Progress Notes * Katherine Stephenson NP - 11/25/2023 9:00 AM CDT NAME:erika : 1960 DATE: 11/25/2023 Reason for visit: IBD My total encounter time on 11/25/2023 was 35 minutes which was spent in the activities documented inthe note. This includes time spent prior to the visit and after the visit in direct care of the patient. This time does not include time spent in any separately reportable services. HPI: Farhana Russo is a 63 y.o. female who has had a rough time. She was seen initially 10/26 in clinic. She had a history of UC ( diagnosed 2022) newly diagnosed adnexal mass and recent episode of diverticulitis c/b colonic microperforation. Patient first encountered our GI service when she was admitted between 8/ for expedited workup of a recently found [...] She was seen in clinic for follow up today due to continued symptoms and failure to thrive. She hashad extreme weight loss. Unable to eat and loss of appetite. She has not been doing well. She remains on antibiotics with cipro and flagyl. Has lost 20lbs since September. Denies any abdominal pain. Denies any fevers. Some urgency and occasional incontinence of stool Reports nocturnal symptoms. Some co ntinued mucous discharge. Takes imodium 3-4 times daily. Having 4-5 stools daily. Reports that whenshe is on antibiotics her oral apathous ulcers clear up. Has upcoming iron infusion. Significant PAULA. We would recommend, given her status, hospital admission with further evaluation and optimizing hercurrent condition. Per gynecology, tumor is less likely cancerous, would start biologic therapy with Remicade. She is still symptomatic and deconditioned. Denies any fevers or chills. No significant abdominal pain. Patient Active Problem List Diagnosis Date Noted Physical deconditioning 11/25/2023 Expressive aphasia 11/04/2023 History of chronic ulcerative colitis 10/27/2023 Adnexal mass 10/23/2023 Hypertension 10/20/2023 Type II diabetes mellitus (HCC) 10/20/2023 Diverticulitis of intestine 10/20/2023 Moderate protein-calorie malnutrition (CMS/HCC) (HCC) 10/03/2023 Past Medical History: Diagnosis Date Adrenal mass (HCC) Diabetes mellitus (HCC) Diverticulitis Hypertension No current facility-administered medications for this visit. No current outpatient medications on file. Facility-Administered Medications Ordered in Other Visits Medication Dose Route Frequency Provider Last Rate Last Admin enoxaparin (LOVENOX) syringe 40 mg 40 mg subcutaneous Daily-2100 Louise Mendieta MD Review of Systems: Constitutional: Negative. HENT: Negative for sore throat and trouble swallowing. Eyes: Negative. Respiratory: Negative. Cardiovascular: Negative. Gastrointestinal: See HPI Endocrine: Negative. Genitourinary: Negative. Musculoskeletal: Negative. Skin: Negative. Allergic/Immunologic: Negative. Neurological: Negative. Hematological: Negative. Psychiatric/Behavioral: Negative. Breast: Negative. Physical Exam: BP 111/68 Pulse 114 Temp 36.7 ??C (98.1 ??F) Ht 154.9 cm (5' 1 ) Wt 58.2 kg (128 lb 3.2 oz) BMI 24.22 kg/m?? GENERAL: Well-appearing, in no acute distress. [...] insight, memory, affect, and orientation Imaging Review Evolving changes of sigmoid diverticulitis with contained [...] and bone marrow, compatible with secondary hemachromatosis. MRI 11/13/23 Assessment/Plan: IBD Complex picture. Likely CD.Not doing well in regards to nutritional status. Poor outcome given microperf with likely would avoid steroid use. Would recommend hospital admission with abscess, ID consult and surgical consult. To likely start remicade as inpatient -will arrange for hospital admission Cosigned by Gildardo Jung MD at 11/26/2023 1:38 PM CDT Associated attestation - Gildardo Jung MD - 11/26/2023 1:38 PM CDT I have seen and examined the patient. I agree with the findings and plan of care as in nurse practitioner's note . - D/w Dr. Rhodes, cyst likely benign and plan to start Remicade CLYDE pending plan for microabscesses in liver and spleen per ID recs inpatient. - If no Remicade possible then needs CRS assessment for sigmoid resection and in that case Dr. Rhodes would do tandem hysterectomy. - Nutrition to see her as inpatient documented in this encounter Plan of Treatment Not on file documented as of this encounter Visit Diagnoses Diagnosis History of chronic ulcerative colitis- Primary Moderate protein-calorie malnutrition (CMS/HCC) (HCC) documented in this encounter Historical Medications * This list may reflect changes made after this encounter. UNABLE TO FIND IRON INFUSIONS PRN 4 added in this encounter Additional Health Concerns Infection Onset Date Last Indicated Resolved Time COVID: Suspected 11/25/2023 11/25/2023 11/25/2023 10:55 PM CDT C. difficile suspected 11/25/2023 11/26/202311/25 6:32 AM CDT documented as of this encounter Care Teams Buyer Relationship Specialty Start Date End Date Kaushal Heath MD [address] [place] [address] PCP - General Internal Medicine 10/30/23 Bigg Delarosa MD [address] [place] [address] Referring Physician Gastroenterology 10/15/23 Jefe Choe MD [address] [place] [address] Referring Physician Gastroenterology 10/15/23 Melissa Rhodes MD [address] [facility], [address] [address] Consulting Physician Gynecologic Oncology 10/30/23 documented as of this encounter
--- OUTSIDE RECORDS SUMMARY | 2024-02-08 04:08 | XMS_ITS | Encounter Summary ---
Author Organization [facility] Address [address] [place] [address] Phone Care Team Providers Care Strand Buncher Fine Wire Name Role Phone Bigg Delarosa MD Unavailable [phone] Jefe Choe MD Unavailable + Melissa Rhodes MD Unavailable [phone] Kaushal Heath MD Primary Care Provider + [phone] Encounter Details Date Type Department Care Team (Late st Contact Info) Description 11/14/2023 Telephone [facility] Oncology [facility] 7th [place] [address] [place] [address] Social History Tobacco Use Types Packs/Day Years Used Date Smoking Tobacco: Never AUDIT-C Answer Date Recorded Q1: How often do you have a drink containing alcohol? Never 11/13/2023 Q2: How many drinks containi ng alcohol do you have on a typical day when you are drinking? Patient does not drink Q3: How often do you have si x or more drinks on one occasion? Never 11/13/2023 Personal Safety Answer Date Recorded Have you ever been in or are you currently in a harmful physical or emotional relationship or is someone making you feel afraid or unsafe? Denies 11/13/2023 Comments No Sex and Gender Information Value Date Recorded Sex Assigned at Not on file Legal Sex Female 3:11 PM CDT Gender Identity Not on file Sexual Orientation Not on file documented as of this encounter Miscellaneous Notes * Telephone Encounter - Jimi Blas, RD - 11/14/2023 3:55 PM CDT Oncology Nutrition Initial Assessment 63 y.o. with large complex cystic pelvic mass not on current tx. Weight: Wt Readings from Last 10 Encounters: 11/13/23 63 kg (139 lb) 11/05/23 61.5 kg (135 lb 9.6 oz) 10/27/23 63 kg (139 lb) 10/23/23 63 kg (139 lb) 10/03/23 66.9 kg (147 lb 7.8 oz) 10/02/23 67.4 kg (148 lb 8 oz) Current BMI: Estimated body mass index is 26.26 kg/m?? as calculated from the following: Height as of 11/13/23: 154.9 cm (5' 1 ). Weight as of 11/13/23: 63 kg (139 lb). [place] body weight: 47.8 kg (105 lb 6.1 oz) Adjusted ideal body weight: 53.3 kg (117 lb 7.5 oz) Estimated Energy Needs: Based on: 63 kg Calories 1121-4651 kcal/day 25-30 kcal/kg Protein 76-95 g/day 1.2-1.5 g/kg Fluid 6420-6209 ml/day or Per MD 30-35 ml/kg or per MD Impression: spoke with pt over the phone. Pt wt is stable. She is eating solids now after being in the hospital. She drinks fairlife protein shakes with her meals so that it is easier to swallow. Shehas been eating a soft foods diet and including yogurt and oatmeal. She has been drinking 3-4 Fair Life shakes/day. Denied N/V. Some diarrhea. Intervention: Ways to increase calories/protein: - Add butter/margarine/oils [...] intake, ONS tolerance Jimi Blas RDN, LD [phone] documented in this encounter Plan of Treatment Not on file documented as of this encounter Visit Diagnoses Not on filedocumented in this encounter Care Teams Strand Buncher Fine Wire Relationship Specialty Start Date End Date Kaushal Heath MD [address] [place] [address] PCP - General Internal Medicine 10/30/23 Bigg Delarosa MD [address] [place] [address] Referring Physician Gastroenterology 10/15/23 Jefe Choe MD [address] [place] [address] [place] [address] Referring Physician Gastroenterology 10/15/23 Melissa Rhodes MD [address] [facility], [address] [address] Consulting Physician Gynecologic Oncology 10/30/23 documented as of this encounter
--- OUTSIDE RECORDS SUMMARY | 2024-02-08 04:08 | XMS_ITS | Encounter Summary ---
Author Organization [facility] Address [address] [place] [address] Phone Care Team Providers Care Dry Dip Worker Name Role Phone Bigg Delarosa MD Unavailable [phone] Jefe Choe MD Unavailable + Melissa Rhodes MD Unavailable [phone] Kaushal Heath MD Primary Care Provider + [phone] Encounter Details Date Type Department Care Team (Late st Contact Info) Description 11/25/2023 Orders Only [facility] Scanning, Provider Social History Tobacco Use Types Packs/Day Years Used Date Smoking Tobacco: Never Smokeless Tobacco: Never [facility] Utilities Answer Date Recorded In the past 12 months has [employer] electric, gas, oil, or water company threatened [...] often do you attend chur ch or hindu services? 1 to 4 times per year 11/29/2023 Do you belong to any clubs o r organizations such as advent groups, unions, fraternal or athletic groups, or [...] were you homeless or living in a usp (including now)? No 11/29/2023 Personal Safety Answer [...] Procedure Name Priority Date/Time Associated Diagnosis Comments SCAN - RADIOLOGY/IMAGING 11/25/2023 documented in this encounter Results * SCAN - RADIOLOGY/IMAGING (11/25/2023) Anatomical Region Laterality Modality Other us Provider Scanning Final Result documented in this encounter Visit [...] the floor. 11/26/2023 11/26/2023 12/27/2023 11:50 PM RAILROAD SURVEYOR Tuberculosis (rule out) Comment:12/02/2023 IP Review: patient with negative BAL and lung biopsy not showing concern for TB infection, OK to come off precautions. Cherrie Escobedo RN 11/27/2023 11/27/20232023 12:49 PM CDT documented as of this encounter Care Teams Dry Dip Worker Relationship Specialty Start Date End Date Kaushal Heath MD [address] [place] [address] PCP - General Internal Medicine 10/30/23 Bigg Delarosa MD [address] [place] [address] Referring Physician Gastroenterology 10/15/23 Jefe Choe MD [address] [place] [address] Referring Physician Gastroenterology 10/15/23 Melissa Rhodes MD [address] [facility] GYNECOLOGIC ONCOLOGY, [address] [address] Consulting Physician Gynecologic Oncology 10/30/23 documented as of this encounter
--- OUTSIDE RECORDS SUMMARY | 2024-02-08 04:08 | XMS_ITS | Encounter Summary ---
Author Organization [facility] Address [address] [place] [address] Phone Care Team Providers Care Strap Machine Operator Automatic Name Role Phone Bigg Delarosa MD Unavailable [phone] Jefe Choe MD Unavailable + Melissa Rhodes MD Unavailable [phone] Kaushal Heath MD Primary Care Provider + [phone] Encounter Details Date Type Department Care Team (Late st Contact Info) Description 11/24/2023 Orders Only [facility] Scanning, Provider Social History Tobacco Use Types Packs/Day Years Used Date Smoking Tobacco: Never [facility] Utilities Answer Date Recorded In the past 12 months has [employer] electric, gas, oil, or water company threatened [...] often do you attend chur ch or episcopal services? 1 to 4 times per year 11/29/2023 Do you belong to any clubs o r organizations such as yarsanism groups, unions, fraternal or athletic groups, or [...] any time in the past 12 m [facility], were you homeless or living in a fdc (including now)? No 11/29/2023 Personal Safety Answer [...] Priority Date/Time Associated Diagnosis Comments SCAN - LABS 11/24/2023 documented in this encounter Results * SCAN - LABS (11/24/2023) us Provider Scanning Final Result documented in [...] the floor. 11/26/2023 11/26/2023 12/27/2023 11:50 PM AIR QUALITY CHEMIST Tuberculosis (rule out) Comment:12/02/2023 IP Review: patient with negative BAL and lung biopsy not showing concern for TB infection, OK to come off precautions. Cherrie Escobedo RN 11/27/2023 11/27/20232023 12:49 PM CDT documented as of this encounter Care Teams Strap Machine Operator Automatic Relationship Specialty Start Date End Date Kaushal Heath MD [address] [place] [address] PCP - General Internal Medicine 10/30/23 Bigg Delarosa MD [address] [facility] [address] [place] [address] Referring Physician Gastroenterology 10/15/23 Jefe Choe MD [address] [facility] [address] [place] [address] Referring Physician Gastroenterology 10/15/23 Melissa Rhodes MD [address] [facility] GYNECOLOGIC ONCOLOGY, [address] [address] Consulting Physician Gynecologic Oncology 10/30/23 documented as of this encounter
--- OUTSIDE RECORDS SUMMARY | 2024-02-08 04:08 | XMS_ITS | Encounter Summary ---
Author Organization [facility] Address [address] [place] [address] Care Team Providers Care Investigative Analyst Name Role Phone Bigg Delarosa MD Unavailable [phone] Jefe Choe MD Unavailable + Melissa Rhodes MD Unavailable [phone] Kaushal Heath MD Primary Care Provider + [phone] Reason for Visit * Reason Comments Unsuccessful Phone Call 3 Encounter Details Date Type Department Care Team (Late st Contact Info) Description 11/14/2023 SHOP/CHAP Initial Outreach [facility] OP CASE MANAGEMENT [address] [place] [address] Chen Philippe, [facility] [address] [facility] ([place] Mailstop [phone] [place] [address] Social History Tobacco Use Types Packs/Day Years [...] on filedocumented in this encounter Care Teams Investigative Analyst Relationship Specialty Start Date End Date Kaushal Heath MD [address] [place] [address] PCP - General Internal Medicine 10/30/23 Bigg Delarosa MD [address] [place] [address] Referring Physician Gastroenterology 10/15/23 Jefe Choe MD [address] [place] [address] Referring Physician Gastroenterology 10/15/23 Melissa Rhodes MD [address] [facility] GYNECOLOGIC ONCOLOGY, [address] [address] Consulting Physician Gynecologic Oncology 10/30/23 documented as of this encounter
--- OUTSIDE RECORDS SUMMARY | 2024-02-08 04:09 | XMS_ITS | Encounter Summary ---
Author Organization [facility] Healthcare Address [address] [place] [address] Care Team Providers Care Night Shift Manager Name Role Phone Bethany Arriola MD Unavailable [phone] Bethany Arriola MD Primary Care Provider Bigg Delarosa MD Unavailable [phone] Jefe Choe MD Unavailable + Encounter Details Date Type Department Care Team (Late st Contact Info) Description 10/23/2023 Telephone [facility] Nutrition Counseling [address] [place] [id number] [address] Social History Tobacco Use Types Packs/Day Years Used Date Smoking Tobacco: Never Personal Safety Answer Date Recorded Have you ever been in or are you currently in a harmful physical or emotional relationship or is someone making you feel afraid or unsafe? Denies 10/02/2023 Comments No Sex and Gender Information Value Date Recorded Sex Assigned at Not on file Legal Sex Female 3:11 PM CDT Gender Identity Not on file Sexual Orientation Not on file documented as of this encounter Miscellaneous Notes * Telephone Encounter - Jhoana Franks RD - 10/23/2023 2:05 PM CDT Oncology Nutrition Initial Assessment 63 y.o. with large complex cystic pelvic mass not on current tx. Weight: Wt Readings from Last 10 Encounters: 10/23/23 63 kg (139 lb) 10/03/23 66.9 kg (147 lb 7.8 oz) 10/02/23 67.4 kg (148 lb 8 oz) Current BMI: Estimated body mass index is 25.84 kg/m?? as calculated from the following: Height as of 10/03/23: 156.2 cm (5' 1.5 ). Weight as of an earlier encounter on 10/23/23: 63 kg (139 lb). Beulah body weight: 48.9 kg (107 lb 14.3 oz) Adjusted ideal body weight: 54.6 kg (120 lb 5.4 oz) Estimated Energy Needs: Based on: 63 kg Calories 8207-3734 kcal/day 25-30 kcal/kg Protein 76-95 g/day 1.2-1.5 g/kg Fluid 4115-6291 ml/day or Per MD 30-35 ml/kg or per MD Impression: spoke with pt over the phone. She has been losing weight, on 10/02 was 147# and now downto 139# on 10/22. She reports her appetite is slowly coming back but not enough. She endorses swallowing difficulty with heavily breaded items like chicken tenders. She has been eating the, with the skin/breading taken off, fish, oatmeal, yogurt, deviled eggs, potato salad, etc. She tried ensure in the hospital and did not tolerate it. Denies n/v/c/d. Intervention: Ways to increase calories/protein: - Add [...] hours. Monitoring: weight, s/s, intake, ONS tolerance Jhoana Franks MS, RDN, LD Clinical Dietitian, [facility] [phone] documented in this encounter Plan of Treatment Not on file documented as of this encounter Visit Diagnoses Not on filedocumented in this encounter Care Teams Night Shift Manager Relationship Specialty Start Date End Date Bethany Arriola MD [address] [place] [address] PCP - General Obstetrics and Gynecology 10/02/2310/18 Bethany Arriola MD [address] [place] [address] Obstetrics and Gynecology 09/15/2310/18 Bigg Delarosa MD [address] [place] [address] Referring Physician Gastroenterology 10/15/23 Jefe Choe MD [address] [place] [address] Referring Physician Gastroenterology 10/15/23 documented as of this encounter
--- OUTSIDE RECORDS SUMMARY | 2024-02-08 04:09 | XMS_ITS | Encounter Summary ---
Author Organization [facility] Address [address] [place] [address] Phone Care Team Providers Care Rotary Drum Tanner Name Role Phone Bigg Delarosa MD Unavailable [phone] Jefe Choe MD Unavailable + Melissa Rhodes MD Unavailable [phone] Kaushal Heath MD Primary Care Provider + [phone] Reason for Visit * Reason Onset Date Comments GI pre-procedural assessment 10/30/2023 Encounter Details Date Type Department Care Team (Late st Contact Info) Description 10/30/2023 Telephone [facility] Gastroenterology [address] [facility] 12th [place] [address] [place] [address] Katie Otero RMA GI pre-procedural assessment Social History Tobacco Use Types Packs/Day Years Used Date Smoking Tobacco: Never AUDIT-C Answer Date Recorded Q1: How often do you have a drink containing alcohol? Never 10/27/2023 Q2: How many drinks containi ng alcohol do you have on a typical day when you are drinking? Patient does not drink Q3: How often do you have si x or more drinks on one occasion? Never 10/27/2023 Personal Safety Answer Date Recorded Have you [...] encounter Miscellaneous Notes * Telephone Encounter - Katie Otero RMA - 10/30/2023 10:45 AM CDT PROCEDURE Type: Colonoscopy Indication: Hx of ulcerative colitis Referring Physician: Self-referral Date Referred: 10/15/2023 CLINICAL ASSESSMENT [x] Clinical assessment obtained via phone call with patient 10/30/2023 [x]COVID/Flu Screening questions []BMI>45, Weight >350 lbs [] Patient had GI procedure/CPAP clinic/GI clinic <30 days (if Yes, no medical screening questions needed unless new clinical issues in last 30 days) Medical screening questions: BMI/Weight: NA CARDIOVASCULAR: None RESPIRATORY/LUNG: None RENAL/LIVER/GI: None GI: Previous COLON or EGD: Hx of Polyps, Shelton, Barretts:no Hx of Constipation:N/A Have you ever required a two day prep? No BLEEDING/CLOTTING: None NEUROLOGICAL: None ENDOCRINE: Diabetes- No BG above 250 or AIC >10 for [facility]. No BG =>400 for [facility]. Bg>300 at [facility] may get rescheduled PRIOR PROCEDURE ISSUES: None PRINTING PLATE MAKER/: NA IMPLANTS.: None PSYCH/Behavioral Hx: N/A SC has limited security Notes: PACEMAKER/ICD Y/N: No/NA Device info: Last documented device check: Any shocks since last cards visit (if yes must see cardiology for procedure clearance): DIALYSIS Y/N: No/NA []HD- Schedule on non-HD day, see protocol []PD- Drain PD fluid AM of procedure, if colonoscopy order AB ppx, see protocol REGULAR DIABETIC MEDS Y/N: Yes []Yes- Discuss diabetes medication management with prescribing physician GLP DIABETIC MEDICATIONS Y/N: No/NA Educated Patient on the need to hold Medication, and to contact their ordering MD or Consumer Loan Specialist about bridging medication for procedure. N/A [] Yes - Letter Sent to Ordering Physician/Consumer Loan Specialist Date sent: Hold instructions: GLP Weight Loss Medications N/A Educated Patient on the need to hold Medication, and to contact their ordering MD or Consumer Loan Specialist about bridging medication for procedure. Y/N: No/NA [] Yes - Letter Sent to Ordering Physician/Consumer Loan Specialist Hold older Instructions: BLOOD THINNERS/ANTICOAG/ANTIPLATELET (BESIDES ASA) Medication: NONE Physician contacted for hold order/date sent: Hold order Method sent: Date hold received: Hold instructions: CONTINUE ASPIRIN INFORMATION REQUESTED []Imaging: []Medical Progress Note/H&P []Medication list []Other: PATIENT OPTIMIZATION []Physician reviewing escalation: []CPAP: Date scheduled: Outcome : [] Location limitations: Scheduling Scheduling location limitations: Dividend Deposit Entry Clerk needed [] NA Language: POA [] NA Name: Required extended education:no SPECIAL PROCEDURE INSTRUCTIONS Scheduling Notes Procedure information Date of procedure: November 13 2023 Time of procedure: 1230 Arrival time: 1130 Location: [facility] Proceduralist: Erich Instructions Method of instructions: MyChart []Confirmation of ride/gluer and slicer hand []Post anesthesia restrictions given []NPO Instructions: []Diet Instructions: []Take non-blood thinner prescription meds that morning []Bring med list, photo ID, insurance card, no valuables []Bring COVID vaccination card (if vaccinated) Bowel Prep Prep prescribed: Miralax Method of Bowel Prep (RX): NA * Telephone Encounter - Katei Otero RMA - 10/30/2023 10:00 AM CDT ----- Message from Nurse Che Gregory sent at 10/28/2023 8:27 AM CDT ----- Regarding: october colonoscopy Erich wants this pt to get a colonoscopy soon. There was no checkout staff to schedule. Order already in. Please and thank you documented in this encounter Plan of Treatment Not on file documented as of this encounter Visit Diagnoses Diagnosis Diverticulitis of large intestine with perforation without abscess or bleeding- Primary History of chronic ulcerative colitis documented in this encounter Care Teams Rotary Drum Tanner Relationship Specialty Start Date End Date Kaushal Heath MD [address] [place] [address] PCP - General Internal Medicine 10/30/23 Bigg Delarosa MD [address] [place] [address] Referring Physician Gastroenterology 10/15/23 Jefe Choe MD [address] [facility] [address] [place] [address] Referring Physician Gastroenterology 10/15/23 Melissa Rhodes MD [address] [facility] GYNECOLOGIC ONCOLOGY, [address] [address] Consulting Physician Gynecologic Oncology 10/30/23 documented as of this encounter
--- OUTSIDE RECORDS SUMMARY | 2024-02-08 04:09 | XMS_ITS | Encounter Summary ---
Author Organization [facility] Healthcare Address [address] [place] [address] Care Team Providers Care Sound Ranging Crewmember Name Role Phone Bigg Delarosa MD Unavailable [phone] Jefe Choe MD Unavailable + Melissa Rhodes MD Unavailable [phone] Kaushal Heath MD Primary Care Provider + [phone] Chen Philippe TRIMMER SAWYER Unavailable [phone] Reason for Visit * Reason Comments SHOP Patient Eligibility Review Encounter Details Date Type Department Care Team (Late st Contact Info) Description 11/07/2023 SHOP/CHAP Initial Eligibility Review [facility] OP CASE MANAGEMENT [address] [place] [id number] Chen Philippe, TRIMMER SAWYER [address] [facility] ([facility]) Mailstop [phone] [place], [place] [id number] Social History Tobacco Use Types Packs/Day Years [...] on filedocumented in this encounter Care Teams Sound Ranging Crewmember Relationship Specialty Start Date End Date Kaushal Heath MD [address] [place] [address] PCP - General Internal Medicine 10/30/23 Bigg Delarosa MD [address] [place] [address] Referring Physician Gastroenterology 10/15/23 Jefe Choe MD [address] [place] [address] Referring Physician Gastroenterology 10/15/23 Melissa Rhodes MD [address] [facility] GYNECOLOGIC ONCOLOGY, [address] [address] Consulting Physician Gynecologic Oncology 10/30/23 Chen Philippe, [facility] [address] [facility] ([facility]) Mailstop [phone] [place] [address] SHOP Outpatient Wet Wash Assembler 11/07/23 11/13/23 documented as of this encounter
--- OUTSIDE RECORDS SUMMARY | 2024-02-08 04:09 | XMS_ITS | Encounter Summary ---
Author Organization [facility] Address [address] [place] [address] Phone Care Team Providers Care Street Roller Engineer Name Role Phone Bigg Delarosa MD Unavailable [phone] Jefe Choe MD Unavailable + Melissa Rhodes MD Unavailable [phone] Kaushal Heath MD Primary Care Provider + [phone] Encounter Details Date Type Department Care Team (Late st Contact Info) Description 11/06/2023 Telephone [facility] Gastroenterology [address] [facility] 12th [place] [address] [place] [address] Katie Otero RMA Social History Tobacco Use Types Packs/Day Years [...] Telephone Encounter - Katie Otero RMA - 11/06/2023 4:50 PM CDT ----- Message from Gildardo Jung MD sent at 11/06/2023 4:43 PM CDT ----- No change in plan, will undergo colon as scheduled ----- Message ----- From: Katie Otero RMA Sent: 11/06/2023 1:06 PM CDT To: Che Gamble RN; Gildardo Jung MD Please see below and advise. Thanks! ----- Message ----- From: Stefany Askew RN Sent: 11/06/2023 10:44 AM CDT To: Nina Gusman RN; Che Gamble RN; # Hi Reviewing chart to provide a 7 day call for her colonoscopy on 11/13/[address] Jung at [facility]. Looks like she is currently admitted to [facility] since 11/03 for expressive aphrasia. Please review chart with Dr Jung. She was seen by colorectal today. Her CT of abdomin from 11/04/2023 showed this IMPRESSION: 1. Findings of perforated diverticulitis of the descending/sigmoid colon with a contained perforation. There has been interval development of numerous hypoattenuating lesions seen throughout the liver and spleen consistent with abscesses. 2. 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 3. Small left pleural effusion. The right pleural effusion has resolved in the interval. We will defer all pre procedural phone calls to your care team. Stefany BLANK Nurse Navigator [facility] GI documented in this encounter Plan of Treatment Not on file documented as of this encounter Visit Diagnoses Not on filedocumented in this encounter Care Teams Street Roller Engineer Relationship Specialty Start Date End Date Kaushal Heath MD [address] [place] [address] PCP - General Internal Medicine 10/30/23 Bigg Delarosa MD [address] [place] [address] Referring Physician Gastroenterology 10/15/23 Jefe Choe MD [address] [place] [address] Referring Physician Gastroenterology 10/15/23 Melissa Rhodes MD [address] [facility], [address] [address] Consulting Physician Gynecologic Oncology 10/30/23 documented as of this encounter
--- OUTSIDE RECORDS SUMMARY | 2024-02-08 04:09 | XMS_ITS | Encounter Summary ---
Author Organization [facility] Healthcare Address [address] [place] [address] Care Team Providers Care Aircraft Electrician Name Role Phone Bethany Arriola MD Unavailable [phone] Bethany Arriola MD Primary Care Provider Encounter Details Date Type Department Care Team (Late st Contact Info) Description 10/08/2023 Orders Only [facility] Gynecologic Oncology [facility] ([facility]) [address] [place] [address] Michelle Patel RN Social History Tobacco Use Types Packs/Day Years [...] on file documented as of this encounter Ordered Prescriptions Prescription Sig Dispense Quantity Refills Last Filled Start Date End Date mesalamine (CANASA) 1,000 mg suppository Insert 1 suppository (1,000 mg total) into the rectum nightly 30 suppository 4 12/30/19 24 documented in this encounter Plan of Treatment Not on file documented as of this encounter Visit Diagnoses Not on filedocumented in this encounter Discontinued Medications Medication Sig Discontinue Reason Start Date End Da te mesalamine (CANASA) 1,000 mg suppository 1 suppository (1,000 mg total) Reorder 08/16/2023 10/08/2023 documented as of this encounter Care Teams Aircraft Electrician Relationship Specialty Start Date End Date Bethany Arriola MD [address] [place] [address] PCP - General Obstetrics and Gynecology 10/02/2310/18 Bethany Arriola MD [address] [place] [address] Obstetrics and Gynecology 09/15/2310/18 documented as of this encounter
--- OUTSIDE RECORDS SUMMARY | 2024-02-08 04:09 | XMS_ITS | Encounter Summary ---
Author Organization [facility] Healthcare Address [address] [place] [address] Care Team Providers Care Import Export Coordinator Name Role Phone Bigg Delarosa MD Unavailable [phone] Jefe Choe MD Unavailable + Melissa Rhodes MD Unavailable [phone] Kaushal Heath MD Primary Care Provider [phone] Chen Philippe [facility] Unavailable [phone] Reason for Referral * MRI/CAT/PET Scan (Routine) - Closed Specialty Diagnoses / Procedures Referred By Elizabeth tyler Referred To Contact Radiology Diagnoses Abdominal pain Procedures MRI Abdomen Pelvis Enterography W WO Contrast Melissa Rhodes MD [address] [phone] [place] [address] Phone: tel: fax: [address] [address] Referral ID Status Reason Start Date Expiration Date Visits Re quested Visits Authorized [id number] Closed 10/04/2023 11/02/2024 1 1 Reason for Visit * Auth/Cert (Routine) Specialty Diagnoses / Procedures Referred By Elizabeth tyler Referred To Contact Diagnoses History of chronic ulcerative colitis History of chronic ulcerative colitis [Z87.19] Procedures AK COLONOSCOPY FLX DX W/COLLJ SPEC WHEN PFRMD COLONOSCOPY Referral ID Status Reason Start Date Expiration Date Visits Re quested Visits Authorized [id number] 1 1 Encounter Details Date Type Department Care Team (Latest Contact Info) Description 11/13/2023 2:31 PM CDT - 11/13/2023 11:59 PM CDT Hospital Encounter [facility] [address] [place] [address] Melissa Rhodes MD [address] [phone] [place] [address] Abdominal pain Discharge Disposition: Discharge to home or self care Social History Tobacco Use Types Packs/Day [...] on file documented as of this encounter Medications at Time of Discharge losartan (COZAAR) 25 mg tablet Take 1 tablet (25 mg total) by mouth daily 07/31/[address] (PROTONIX) 40 mg EC tablet Take 1 tablet (40 mg total) by mouth daily 09/30/2023 potassium chloride ER 10 mEq CR tablet Take 1 tablet/capsule (10 mEq total) by mouth daily 10/30/2023 acetaminophen 500 mg capsule Take 2 capsules (1,000 mg total) by mouth every 6 (six) hours as needed (pain) 30 tablet 11/06/2023 12/30/19 ciprofloxacin (CIPRO) 500 mg tablet Take 1 tablet (500 mg total) by mouth 2 (two) times a day 12/30/19 24 ergocalciferol (VITAMIN D) 50,000 unit capsule 10/30/2023 11/26/19 24 ferrous sulfate 325 mg (65 mg of elemental iron) tablet Take 1 tablet (325 mg total) by mouth daily with breakfast 30 tablet 11 10/04/2023 12/30/19 24 mesalamine (CANASA) 1,000 mg suppository Insert 1 suppository (1,000 mg total) into the rectum nightly 30 suppository 10/08/2023 12/30/19 metroNIDAZOLE (FLAGYL) 500 mg tablet Take 1 tablet (500 mg total) by mouth 2 (two) times a day 12/30/19 24 triamcinolone (KENALOG) 0.1 % paste 08/01/2023 11/26/19 24 documented as of this encounter Discharge Disposition Disposition Code Departure Means Destination Discharge to home or self care documented in this encounter Plan of Treatment Not on file documented as of this encounter Procedures Procedure Name Priority Date/Time Associated Diagnosis Comments MRI ABDOMEN/PELVIS ENTEROGRAPHY W WO CONTRAST Schedule Routine, Read Routine (OP Routine) 11/13/2023 6:53 PM CDT Abdominal pain documented in this encounter Results * MRI Abdomen Pelvis Enterography W WO [...] iron deposition throughout the marrow. Procedure Note KonAshley edgar MD - 11/14/2023 EXAMINATION: 1. MAGNETIC RESONANCE [...] by: Ashley Carrasco M.D. Melissa Rhodes MD [facility] MRI PROCEDURES Final Result documented in this encounter Visit Diagnoses Diagnosis Abdominal pain Abdominal pain, unspecified site documented in this encounter Administered Medications Inactive Administered Medications - up to 3 most recent administrations Medication Order MAR Action Action Date Dose Rate Site gadoterate meglumine injection 13 mL 13 mL, intravenous, Once in imaging, contrast, Starting on Sabi 11/13/23 at 1805, For 1 dose Contrast Given 11/13/2023 6:18 PM CDT 13 mL glucagon injection 1 mg 1 mg, intravenous, Administer over 1 Minutes, Once in imaging, low blood sugar, Starting on Sabi 11/13/23 at 1711, For 1 dose, Imaging Protocol Orders, Reconstitute 1 mg vial with 1 mL SWFI. Use immediately following reconstitution. Given 11/13/2023 5:55 PM CDT 1 mg documented in this encounter Care Teams Import Export Coordinator Relationship Specialty Start Date End Date Kaushal Heath MD [address] [place] [address] PCP - General Internal Medicine 10/30/23 Bigg Delarosa MD [address] [place] [address] Referring Physician Gastroenterology 10/15/23 Jefe Choe MD [address] [place] [address] Referring Physician Gastroenterology 10/15/23 Melissa Rhodes MD [address] [facility] GYNECOLOGIC ONCOLOGY, [address] [address] Consulting Physician Gynecologic Oncology 10/30/23 Chen Philippe, [facility] [address] [facility] ([facility] Mailstop [phone] [place] [address] SHOP Outpatient Pipe Jeeper 11/07/23 11/13/23 documented as of this encounter
--- OUTSIDE RECORDS SUMMARY | 2024-02-08 04:09 | XMS_ITS | Encounter Summary ---
Author Organization [facility] Address [address] [place] [address] Phone Care Team Providers Care Mud Grinder Name Role Phone Bethany Arriola MD Unavailable [phone] Bethany Arriola MD Primary Care Provider Bigg Delarosa MD Unavailable [phone] Jefe Choe MD Unavailable + Reason for Visit * Reason Comments Follow-up Encounter Details Date Type Department Care Team (Late st Contact Info) Description 10/23/2023 9:15 AM CDT Office Visit [facility] Obstetrics and Gynecology [address] [facility] Advanced Medicine 13th [place] [address] [place] [address] Melissa Spear MD [id number] [place] [address] Diverticulitis of large intestine with perforation without abscess or bleeding (Primary Dx); Adnexal mass Social History Tobacco Use Types Packs/Day Years Used Date Smoking Tobacco: Never Tobacco Cessation:Counseling Given: Not Answered Personal Safety Answer Date Recorded Have you [...] Sign Reading Time Taken Comments Blood Pressure 136/68 10/23/2023 9:10 AM CDT Pulse 109 10/23/2023 9:10 AM CDT Temperature 36.9 ??C (98.4 ??F) 10/23/2023 9:10 AM CD T Respiratory Rate 16 10/23/2023 9:10 AM CDT Oxygen Saturation 99% 10/23/2023 9:10 AM CDT Inhaled Oxygen Concentration - - Weight 63 kg (139 lb) 10/23/2023 9:10 AM CDT Height - - Body Mass Index 25.84 10/03/2023 9:00 AM CDT documented in this encounter Progress Notes * Melissa Spear MD - 10/23/2023 9:15 AM CDT GYNONC Return Visit Farhana Russo 1960 63 y.o. 10/23/2023 Visit Diagnosis 1. Diverticulitis of large intestine with perforation without abscess or bleeding 2. Adnexal mass Subjective HPI Farhana returns for a follow up visit. She is accompanied by her . Overall she is feeling some improvement since her last office visit. She continues to have bouts of loose stool, but less discharge and mucous. She denies any hematochezia. Appetite remains low and getting in protein and calories is a struggle. She denies any nausea or vomiting. She denies any fever. Weight is down another 8lbs. She continues on the Augmentin & Flagyl. She completed the Bactrim. CT done earlier today shows contained colonic microperforation with slightly increased wall thickening & stranding of the descending colon; the cystic adnexal mass is unchanged. She has a GI appt scheduled for next week. -Admission for sepsis DDx diverticulitis, cholecystitis -CT A/P 08/26/23: 2.2cm likely hepatic cyst, gallstones & slight thickening, [id number] pelvic cyst,diverticulitis vs colitis rectum, sigmoid, descending colon w/ fat stranding, normal appendix, no ascites or LAD -Pelvic ultrasound: uterus 7.4x2.8x4.6cm, EE 4mm, 12x11.2x15.1cm complex right pelvic cyst w/ nonvascular septations & 3.6cm solid component, minimal free fluid -CA125 = 29, CA19-9= 4, Inhibin B < 10 09/2023 -S/p LSC CCK 09/10/23, Op note received & reviewed- GB packed w/ stones -Admission 10/01-10/03 d/c w/ augmentin 875-125mg q8h and flagyl 500mg bid antibiotics (10/03-indefinitely) for colonic microperforation and bactrim (double strength 1 tab q12h until 10/06) for treatmentof her ESBL UTI. MRE (magnetic resonance enterography) order placed for outpatient. Review of Systems The patient-completed Review of Systems was reviewed and was scanned as an attachment to this encounter. Patient Active Problem List Diagnosis Moderate protein-calorie malnutrition (CMS/HCC) (HCC) Hypertension Type II diabetes mellitus (HCC) Diverticulitis of intestine Adnexal mass Past Medical History: Diagnosis Date Diabetes mellitus (HCC) Hypertension Past Surgical History: Procedure Laterality Date CHOLECYSTECTOMY 08/2023 TUBAL LIGATION Allergies Allergen Reactions Azithromycin Rash Current Outpatient Medications: amoxicillin-clavulanate (AUGMENTIN) 875-125 mg per tablet ferrous sulfate 325 mg (65 mg of elemental iron) tablet losartan (COZAAR) 25 mg tablet mesalamine (CANASA) 1,000 mg suppository metFORMIN (GLUCOPHAGE) 500 mg tablet metroNIDAZOLE (FLAGYL) [address] (PROTONIX) 40 mg EC tablet triamcinolone (KENALOG) 0.1 % paste acetaminophen 500 mg capsule No current facility-administered medications for this visit. Objective Vitals BP 136/68 (BP Location: Right arm, Patient Position: Sitting) Pulse 109 Temp 36.9 ??C (98.4 ??F) (Temporal) Resp 16 Wt 63 kg (139 lb) SpO2 99% BMI 25.84 kg/m?? Physical exam: General chronically ill appearing, tearful. HEENT: within normal limits; sclerae non icteric. Cervical/supraclavicular Area: without adenopathy. Chest: clear to auscultation. Heart: regular rate & rhythm. Back: no CVA or paraspinal tenderness. Abdomen: soft, without palpable masses, hernias, or enlarged liver or spleen; no fluid wave. Well healed trocar scars without herniation. There is no rebound or guarding. She is mildly tender throughout. Skin: without rashes. Lower extremities: without edema or calf tenderness. Performance Score: Karnofsky Score: ECOG Score: 1 Lab/Radiology/Diagnostic Review: I have personally reviewed the radiology report & images. CT C/A/P (10/02/23) small bilateral pleural effusions, 2.4cm likely post surgical hepatic cyst, [id number] pelvic cyst, likely right adnexa, markedly thick walled sigmoid & descending colon w/ edema & fat stranding, microperforation, no abscess, small ascites CT A/P (10/23/23) Contained colonic microperforation with slightly increased wall thickening and stranding of the descending colon from prior. No pneumoperitoneum. Assessment/Plan 63 y.o. with seemingly incidental large complex cystic pelvic mass in the setting of diverticulitis& a reported history of inflammatory bowel disease. -type II diabetes -ulcerative colitis -hypertension -recent CCK -protein calorie malnutrition, severe Plan: Product Accountant consult/follow up. Encouraged protein supplements. Follow up with GI as scheduled. MRE scheduled, but will not occur until 11/10. Plan telemedicine visit based on GI plan. We will continue to follow up to determine when it is safe to operate and remove the large pelvic mass. It is unclear whether she will require colon surgery concurrently. Patient Counseling: I reviewed the indications for surgery as well as the risks, possible side effects, and expected recovery. Risks of surgery include bleeding, infection, damage to surrounding organs, and blood clots to the legs or lungs. I feel that I answered all of her questions adequately. Melissa Spear MD CC: Encounter Referring Provider: Bethany Arriola MD and PCP: Bethany Arriola MD & Other: Jefe Alcocer MD (GI) Enclosures:CT Report documented in this encounter Miscellaneous Notes * Treatment Plan - Melissa Spear MD - 10/23/2023 9:15 AM CDT Please schedule Farhana Willhoit for the following: Requested Order Contrast Indication When CXR CT Chest, Abdomen, and Pelvis CT Abdomen and Pelvis LEEP (during clinic hours) R DEVELOPER Ultrasound MRI Mammogram PET Initiate Survivoship Care Plan Surveillance Labs (CBC w/ Diff, CMP, Magnesium, CA125) Product Accountant referral Please get MRE scheduled, preferably beforeGI appt Labwork: documented in this encounter Plan of Treatment Not on file documented as of this encounter Visit Diagnoses Diagnosis Diverticulitis of large intestine with perforation without abscess or bleeding- Primary Adnexal mass Other specified symptom associated with female genital organs documented in this encounter Care Teams Mud Grinder Relationship Specialty Start Date End Date Bethany Arriola MD [address] [place] [address] PCP - General Obstetrics and Gynecology 10/02/2310/18 Bethany Arriola MD [address] [place] [address] Obstetrics and Gynecology 09/15/2310/18 Bigg Delarosa MD [address] [place] [address] Referring Physician Gastroenterology 10/15/23 Jefe Choe MD [address] [place] [address] Referring Physician Gastroenterology 10/15/23 documented as of this encounter
--- OUTSIDE RECORDS SUMMARY | 2024-02-08 04:09 | XMS_ITS | Encounter Summary ---
Author Organization [facility] Address [address] [place] [address] Phone Care Team Providers Care Marketing Communications Coordinator Name Role Phone Bethany Arriola MD Unavailable [phone] Bethany Arriola MD Primary Care Provider Bigg Delarosa MD Unavailable [phone] Jefe Choe MD Unavailable + Reason for Visit * Reason Onset Date Comments Treatment Plan Update 10/28/2023 10/27/2023 i ov Encounter Details Date Type Department Care Team (Late st Contact Info) Description 10/28/2023 Documentation [facility] Gastroenterology [address] [facility] Medicine 12th [place] [address] [place] [id number] Che Gamble RN Treatment Plan Update (10/27/2023 iov) Social History Tobacco Use Types Packs/Day Years [...] of this encounter Progress Notes * Che Gamble, RN - 10/28/2023 8:26 AM CDT Plan per Erich: - new pt labs - colonoscopy Staff message sent to procedure coordinator re: scope since there was no check out staff to schedule. documented in this encounter Plan of Treatment Not on file documented as of this encounter Visit Diagnoses Not on filedocumented in this encounter Care Teams Marketing Communications Coordinator Relationship Specialty Start Date End Date Bethany Arriola MD [address] [place] [address] PCP - General Obstetrics and Gynecology 10/02/2310/18 Bethany Arriola MD [address] [place] [address] Obstetrics and Gynecology 09/15/2310/18 Bigg Delarosa MD [address] [place] [address] Referring Physician Gastroenterology 10/15/23 Jefe Choe MD [address] [place] [address] Referring Physician Gastroenterology 10/15/23 documented as of this encounter
--- OUTSIDE RECORDS SUMMARY | 2024-02-08 04:09 | XMS_ITS | Encounter Summary ---
Author Organization [facility] Address [address] [place] [address] Care Team Providers Care Patient Account Liaison Name Role Phone Bethany Arriola MD Unavailable [phone] Bethany Arriola MD Primary Care Provider Encounter Details Date Type Department Care Team (Late st Contact Info) Description 10/02/2023 Telephone [facility] Gynecologic Oncology [facility] ([facility]) [address] [place] [phone] Michelle Patel RN Social History Tobacco Use [...] encounter Miscellaneous Notes * Telephone Encounter - Michelle Patel RN - 10/02/2023 11:43 AM CDT Spoke with pt placement for direct admit for observation with dx of adnexal mass, diverticulitis, and failure to thrive. Pt was recently discharged from [facility] approx 5-6 days ago but no records obtained from this admission. Pt will need consult by colorectal surgery team. Per pt placement bed is available and pt may go to [facility] admitting desk at this time to be registered. Alphonso michel nancy. documented in this encounter Plan of Treatment Not on file documented as of this encounter Visit Diagnoses Not on filedocumented in this encounter Care Teams Patient Account Liaison Relationship Specialty Start Date End Date Bethany Arriola MD [address] [place] [address] PCP - General Obstetrics and Gynecology 10/02/2310/18 Bethany Arriola MD [address] [place] [address] Obstetrics and Gynecology 09/15/2310/18 documented as of this encounter
--- OUTSIDE RECORDS SUMMARY | 2024-02-08 04:09 | XMS_ITS | Encounter Summary ---
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 Role Phone Bigg Delarosa MD Unavailable [phone] eJfe Choe MD Unavailable + Melissa Rhodes MD Unavailable [phone] Kaushal Heath MD Primary Care Provider + [phone] Reason for Visit * Reason Comments Fall Altered Mental Status Fever * Auth/Cert (Routine) Specialty Diagnoses / Procedures Referred By Elizabeth tyler Referred To Contact Diagnoses Expressive aphasia Procedures NA Referral ID Status Reason Start Date Expiration Date Visits Re quested Visits Authorized [id number] 1 1 Encounter Details Date Type Department Care Team (Latest Contact Info) Description 11/04/2023 10:17 AM CDT - 11/06/2023 2:20 PM CDT Hospital Encounter [facility] [address] [place] [address] Pilo Davis MD [address] [place] [address] Jhonny Pandya MD [address] [place] [address] Sue Mcintyre MD [address] [place] [address] Juan Carlos Ovalle MD [address] [place] [address] Arnie Nuñez MD [address] [place] [address] Candy Peterson MD [address] [place] [address] Expressive aphasia (Primary Dx); Altered mental status, unspecified altered mental status type; LLQ abdominal pain; Acute cough; Sepsis without septic shock (CMS/HCC) (HCC); Diverticulitis of colon with perforation Discharge Disposition: Discharge to home or self [...] Sign Reading Time Taken Comments Blood Pressure 129/67 11/06/2023 11:04 AM CDT Pulse 96 11/06/2023 11:04 AM CDT Temperature 36.6 ??C (97.9 ??F) 11/06/2023 8:45 AM CD T Respiratory Rate 16 11/06/2023 8:45 AM CDT Oxygen Saturation 98% 11/06/2023 11:04 AM CDT Inhaled Oxygen Concentration - - Weight 61.5 kg (135 lb 9.6 oz) 11/05/2023 3:30 P M CDT Height 154.9 cm (5' 1 ) 11/05/2023 3:30 PM CDT Body Mass Index 25.62 11/05/2023 3:30 PM CDT documented in this encounter Discharge Summaries * Yajaira Ackerman MD - 11/06/2023 11:50 AM CDT Inpatient Discharge Summary BRIEF OVERVIEW Admitting Provider: Jhonny Pandya MD Discharge Provider: No att. providers found Primary Care Physician at Discharge: Kaushal Heath MD [phone] Admission Date: 11/04/2023 Discharge Date: 11/06/2023 Admission Location: [facility] Problems/Diagnoses: Principal Problem: Expressive aphasia Resolved Problems: No resolved hospital problems. DETAILS OF HOSPITAL STAY Presenting Problem/History of Present Illness: Per Dr. Davies's H&P dated, Farhana Russo is a 63 y.o. female with PMH HTN, DM, recurrent diverticulitis, ulcerative colitis, and adnexal mass presenting with 1 day of altered mental status andconfusion. Farhana presented after her found her down in the bathroom at 0530 with aphasia, confusion, and not following commands or answering questions. She had been in her usual state of health at 0230 per when she got up to use the bathroom and returned to bed. While she was alert and interactive, she showed persistent speech deficits. No other focal neurologic deficits noted, ambulating well, and no appreciable facial droop. In ED, initials vitals were afebrile and WNL. Labs remarkable for WBC 23.5, hgb 7.6, and Na 126. Initial presentation with NIHSS of 5 (aphasia, AMS, normal motor/sensory/CN), resulting in code stroke. CT head was negative and subsequent bMRI also negative, making presentation most consistent with stroke mimic. CT A/P reveals perforated diverticulitis of descending/sigmoid colon with contained perforation and concern for multiple hepatic and splenic abscesses with large cystic mass in the pelvis. General surgery saw her in the ED and deferred surgical management at this time. Recommended CLD and possible broadening of antibiotics if clinical deterioration/concern for sepsis. Recently admitted to [facility] 10/01[facility]10[facility] for pelvic mass and suspected colonic microperforation. Discharged on Augmentin and flagyl and recommended waiting 4 weeks for surgical intervention. At follow-up on 10/22 recommended MRE and GI follow-up for OR intervention. On 10/26 GI follow-up, recommended MREand c-scope for UC with continued Augmentin with likely need for CRS resection. On arrival to floor, reports feeling close to her baseline. Her , Sj, at bedside, agreesthat she is close to her baseline. They reiterate the story told in the ED regarding her being found on the floor confused and not speaking right. Sj states that he checked her temperature and found her to be febrile. They are becoming frustrated with repeated admissions over the past few months and feel they are not getting consistent advice on diet to prevent recurrence of diverticulitis. She is also reporting weight loss despite attempting to gain weight with supplements and high protein drinks. Also frustrated that the etiology of the weight loss has not been pinpointed. Explained that it is likely multifactorial in the setting of ongoing colon inflammation, active infection, and abdominal abscesses. They also note that she has been persistently anemic and required transfusions as recently as this weekend. They would like an explanation for these findings as she has been taking vitamins as prescribed. Hospital Course: Ms. Russo is a 63 y.o. female with history of HTN, DM, recurrent diverticulitis, IBD, and adnexal mass presenting with 1 day of altered mental status and confusion. She was found down by her 3 hours after last known well, and she had aphasia and confusion when he found her without other focal neurologic deficits noted. They came to the ED where she was afebrile and vitals WNL. WBC was 23.5, Hgb 7.6, Na 126. Stroke code was called due to NIHSS of 5. CT head was negative and brain MRI was negative, consistent with stroke mimic likely secondary to infection. CT A/P showed perforated diverticulitis of descending/sigmoid colon with contained perforation and concern for multiple hepatic and splenic abscesses with large cystic mass in the pelvis. In the ED, IR was consulted and noted that the abscesses were too small to drain. Colorectal surgery was consulted and advised admission to floor and antibiotic treatment, no emergent surgical intervention was deemed necessary. GI was called about possibility of doing ascope and deferred the scope to outpatient setting as patient already had a scope scheduled with her GI provider 11/12. She was started on clear liquid diet, then progressed to regular diet after general surgery saw her 11/05 and felt her abdominal exam was re-assuring. They recommended discharge with outpatient follow up and a course of oral antibiotics. She was given IV Zosyn inpatient for treatment of abscesses, will be transitioned to a 4 week course of flagyl and ciprofloxacin outpatient. She received a transfusion for a hemoglobin of 6.9 which subsequently improved to 8.1. Iron labs 11/04 showed Iron 11, Ferritin 1868, TIBC 95, Transferrin saturation 12. She was hyponatremic (126) on admission, which improved with IV fluids to 132. 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 - f/u with colorectal surgery after colonoscopy Test Results Pending at Discharge: Pending Labs Order Current Status Hemoglobin A1c In process Magnesium In process Phosphorus In process Blood culture Blood Preliminary result Blood culture Blood Preliminary result Pertinent Test Results: CT showing perforated diverticulitis and multiple splenic and hepatic abscesses Discharge Details Physical Exam at Discharge: Discharge Condition: stable Pulse: 96 Resp: 16 BP: 129/67 Temp: 36.6 ??C (97.9 ??F) Weight: 61.5 kg (135 lb 9.6 oz) Pertinent Exam Findings at Discharge: Constitutional: NAD, well developed, well nourished. Eyes: EOMI, anicteric. HEENT: NCAT. moist mucus membranes. Lungs: Clear to auscultation in anterior lung randall unlabored Cardiovascular: RRR, normal S1 and S2, no murmurs GI: Soft, non-tender, non-distended, bowel sounds positive Skin: No new rashes, lesions or bruises noted Extremities: Normal without edema or cyanosis Neurologic: AOx4, no focal deficits, moves all limbs spontaneously Psychiatric: Normal affect and mood. Discharge Disposition: Discharge to home or self care Code Status at Discharge: Full code Discharge Instructions: You were admitted to the hospital for treatment of perforated diverticulitis. You were given IV antibiotics (Zosyn) while you were admitted, you will be started on Flagyl and Ciprofloxacin for treatment on discharge, you will take these medications for 4 weeks. We have contacted Dr. Jung, it is unlikely that your colonoscopy will need to be rescheduled as you've had this perforation since 09/25/23 and it has remained stable. At this time your colonoscopy appointment will be kept , Dr. Jung's office will reach out if there are changes in this plan. It was determined that your trouble speaking was not due to a stroke. It was likely secondary to your low sodium (for which you received IV fluids), low hemoglobin (for which you received a blood transfusion), and infection. If you experience symptoms concerning for a stroke such as trouble speaking, focal weakness, or facial droop please present to the hospital. Be on the lookout for sudden severe abdominal pain, fever, chills, nausea, vomiting, or blood in your stool. If you develop these symptoms, contact your doctor or return to the hospital if they are severe. Medication Changes: Resume Flagyl 500 mg BID for four weeks Start ciprofloxacin 500 mg BID for four weeks Stop Augmentin Activity Instructions Discharge activity: Resume normal activity Diet Instructions Adult Discharge Diet Diet Type: Return to previous diet Other Instructions Call provider for: Temperature -Temperature greater than 101 degrees F Call provider for: difficulty breathing or chest pain Call provider for: extreme fatigue Call provider for: hives Call provider for: persistent dizziness or light-headedness Call provider for: persistent nausea or vomiting Call provider for: redness, tenderness, or signs of infection (pain, swelling, redness, odor or green/yellow discharge around incision site) Call provider for: severe uncontrolled pain Call provider for: headache, visual disturbances, weakness and speech changes Discharge Medications: Current Medications TAKE these medications acetaminophen 500 mg capsule Take 2 capsules (1,000 mg total) by mouth every 6 (six) hours as needed (pain) ciprofloxacin 500 mg tablet Take 1 tablet (500 mg total) by mouth 2 (two) times a day For: diverticulitis Commonly known as: CIPRO ferrous sulfate 325 mg (65 mg of elemental iron) tablet Take 1 tablet (325 mg total) by mouth daily with breakfast losartan 25 mg tablet Take 1 tablet (25 mg total) by mouth daily Commonly known as: COZAAR mesalamine 1,000 mg suppository Insert 1 suppository (1,000 mg total) into the rectum nightly Commonly known as: CANASA metroNIDAZOLE 500 mg tablet Take 1 tablet (500 mg total) by mouth 2 (two) times a day For: Abdominal/Pelvic Infection Commonly known as: FLAGYL pantoprazole DR 40 mg EC tablet Take 1 tablet (40 mg total) by mouth daily Commonly known as: PROTONIX triamcinolone 0.1 % paste Commonly known as: KENALOG Outpatient Follow-Up: Future Appointments Date Time Provider Department Center 11/13/2023 4:00 PM [facility] [id number] [facility] N MRI [facility] Main IMG 12/09/2023 4:00 PM Yo Ferreira MD C/R [facility] Contact Information for Follow-ups Kaushal Heath MD Specialty: Internal Medicine, Family Medicine Relationship: PCP - General [address] [place] [address] Next Steps: Follow up Kaushal Heath MD Specialty: Internal Medicine, Family Medicine Relationship: PCP - General [address] [place] [address] Next Steps: Follow up Instructions: Nov 09 at 2:45 pm Home O2: Cosigned by Candy Peterson MD at 11/07/2023 1:00 PM CDT documented in this encounter Discharge Instructions * Discharge Instructions* Yajaira Ackeramn MD - 11/06/2023 11:38 AM CDT You were admitted to the hospital for treatment of perforated diverticulitis. You were given IV antibiotics (Zosyn) while you were admitted, you will be started on Flagyl and Ciprofloxacin for treatment on discharge, you will take these medications for 4 weeks. We have contacted Dr. Jung, it is unlikely that your colonoscopy will need to be rescheduled as you've had this perforation since 09/25/23 and it has remained stable. At this time your colonoscopy appointment will be kept , Dr. Jung's office will reach out if there are changes in this plan. It was determined that your trouble speaking was not due to a stroke. It was likely secondary to your low sodium (for which you received IV fluids), low hemoglobin (for which you received a blood transfusion), and infection. If you experience symptoms concerning for a stroke such as trouble speaking, focal weakness, or facial droop please present to the hospital. Be on the lookout for sudden severe abdominal pain, fever, chills, nausea, vomiting, or blood in your stool. If you develop these symptoms, contact your doctor or return to the hospital if they are severe. Medication Changes: Resume Flagyl 500 mg BID for four weeks Start ciprofloxacin 500 mg BID for four weeks Stop Augmentin * Appointments* Shelby Askew RN - 11/06/2023 1:09 PM CDT You have a hospital follow-up appointment on Nov 09 at 2:45 pm. Please arrive 5-10 minutes early. If you are unable to keep this appointment, please call the doctor's office at least 24 hours in advance to reschedule. Bring all home meds, photo ID, discharge summary, and insurance card to appointment. Thank you documented in this encounter Medications at Time [...] as needed (pain) 30 tablet 11/06/2023 12/30/19 24 ciprofloxacin (CIPRO) 500 mg tabletIndication s:diverticulitis Take 1 tablet (500 mg total) by mouth 2 (two) times a day 60 tablet 11/06/2023 11/10/19 24 ciprofloxacin (CIPRO) 500 mg tablet Take 1 [...] the rectum nightly 30 suppository 10/08/2023 12/30/19 24 metroNIDAZOLE (FLAGYL) 500 mg tabletIndication s:Abdominal/Pelv ic Infection Take 1 tablet (500 mg total) by mouth 2 (two) times a day 60 tablet 11/06/2023 11/10/19 24 metroNIDAZOLE (FLAGYL) 500 mg tablet Take 1 tablet (500 mg total) by mouth 2 (two) times a day 12/30/19 24 triamcinolone (KENALOG) 0.1 % paste 08/01/2023 11/26/19 24 documented as of this encounter Ordered Prescriptions Prescription Sig Dispense Quantity Refills Last Filled Start Date End Date acetaminophen 500 mg capsule Take 2 capsules (1,000 mg total) by mouth every 6 (six) hours as needed (pain) 30 tablet 11/06/2023 4 ciprofloxacin (CIPRO) 500 mg tabletIndications: diverticulitis Take 1 tablet (500 mg total) by mouth 2 (two) times a day 60 tablet 11/06/2023 4 metroNIDAZOLE (FLAGYL) 500 mg tabletIndications: Abdominal/Pelvic Infection Take 1 tablet (500 mg total) by mouth 2 (two) times a day 60 tablet 11/06/2023 4 documented in this encounter Discharge Disposition Disposition Code Departure Means Destination Comment s Discharge to home or self care documented in this encounter [facility] * Yajaira Ackerman MD - 11/06/2023 11:48 AM CDT Daily [facility] Division of Hospital Medicine Name: Farhana Russo Today: November 06, 2023 : 1960 Age: 63 y.o. female Admit: 11/04/2023 Bed: [id number] SUBJECTIVE Chief complaint: Chief Complaint Patient presents with Fall Altered Mental Status Fever Interval History: - admitted to floor yesterday - received 1 unit of pRBC due to hemoglobin of 6.9, recheck was 8.1 - colorectal surgery saw her this morning, re-assuring abdominal exam, ok'd for discharge with oralantibiotics and outpatient follow up - GI aware of patient, deferred inpatient scope due to perforation, fyi'd her primary GI physician,will likely keep scheduled colonoscopy for 11/12 as patient has had perf since early September and it has remained stable On interview, patient states she is doing well and ready to go home. She has not had any further episodes of aphasia since her admission. Denies pain, nausea, vomiting. Endorses diarrhea after IV fluids. Endorses poor appetite. OBJECTIVE Medications: Scheduled: enoxaparin, 40 mg, subcutaneous, Daily-2100 ferrous sulfate, 65 mg of elemental iron, oral, Daily with breakfast losartan, 25 mg, oral, Daily mesalamine, 1,000 mg, rectal, Nightly pantoprazole DR, 40 mg, oral, Daily piperacillin-tazobactam, 3.375 g, intravenous, Q6H DARIN Infusions: Lactated Ringer's, 75 mL/hr, Last Rate: 75 mL/hr (11/05/23 1057) PRN: acetaminophen bisacodyl EC OR bisacodyL loperamide polyethylene glycol Vitals: 24hr Min/Max: Temp Min: 36.5 ??C (97.7 ??F) Max: 37 ??C (98.6 ??F) Pulse Min: 89 Max: 101 BP Min: 123/49 Max: 133/70 Resp Min: 16 Max: 18 SpO2 Min: 96 % Max: 98 % Most Recent: Vitals: 11/06/23 1104 BP: 129/67 Pulse: 96 Resp: Temp: SpO2: 98% Intake/Output Summary (Last 24 hours) at 11/06/2023 1150 Last data filed at 11/06/2023 0601 Gross per 24 hour Intake 465 ml Output -- Net 465 ml Physical Exam: Constitutional: NAD, well developed, well nourished. Eyes: EOMI, anicteric. HEENT: NCAT. moist mucus membranes. Lungs: Clear to auscultation in anterior lung randall unlabored Cardiovascular: RRR, normal S1 and S2, no murmurs GI: Soft, non-tender, non-distended, bowel sounds positive Skin: No new rashes, lesions or bruises noted Extremities: Normal without edema or cyanosis Neurologic: AOx4, no focal deficits, moves all limbs spontaneously Psychiatric: Normal affect and mood. Lab/Diagnostic Review: Lab Results Component Value Date WBC 12.3 (H) 11/05/2023 HGB 8.1 (L) 11/06/2023 HCT 25.2 (L) 11/06/2023 MCV 81.9 11/05/2023 LABPLAT 434 (H) 11/05/2023 Lab Results Component Value Date GLUCOSE 82 11/05/2023 CALCIUM 8.0 (L) 11/05/2023 SODIUM 132 (L) 11/05/2023 POTASSIUM 3.4 11/05/2023 CO2 24 11/05/2023 CHLORIDE 94 (L) 11/05/2023 BUNSER 12 11/05/2023 CREATININE 0.88 11/05/2023 Imaging Results: MRI Brain WO Contrast Narrative: EXAMINATION: Magnetic resonance imaging (MRI) of the brain and brainstem without contrast HISTORY: 63 years-old Female with Neuro deficit, acute, stroke suspected. TECHNIQUE: Multiplanar multi-weighted MRI of the brain and brainstem was performed without intravenous contrast using the general brain protocol. COMPARISON: CT head 11/04/2023. FINDINGS: The scalp and calvarium are normal. The superior sagittal sinus demonstrates normal venous flow. The corpus callosum is normal in shape and signal intensity. The posterior fossa is unremarkable. The pituitary and sella are normal. The brainstem and craniocervical junction are unremarkable. Diffusion weighted images reveal no hyperintensities to suggest acute cerebral infarction. The susceptibility weighted sequences reveal no evidence of acute or chronic hemorrhage. The ventricles are normal in size and position without evidence of hydrocephalus. The paranasal sinuses are normal. The visualized portions of the mastoids are unremarkable. The orbits appear normal. Normal flow voids are demonstrated in the carotid arteries and basilar artery. Impression: No acute intracranial abnormality. Dictated by: Fan Arias M.D. The radiology attending physician has personally reviewed this study, and had reviewed and/or edited this written report and agrees with it. Electronically signed by: Deangelo Mcmahon MD CT Abdomen Pelvis W Contrast Narrative: EXAMINATION: Computed tomography of the abdomen/pelvis with intravenous contrast HISTORY: Found down TECHNIQUE: Transaxial computed tomographic images of the abdomen/pelvis were obtained with intravenous contrast according to the standard protocol after the uneventful administration of 100 mL Opti-Ray 350 intravenous contrast. COMPARISON: 10/23/2023 FINDINGS: Small left pleural effusion with resolution of the right effusion. There is bibasilar atelectasis In the interval there has been development of multiple hypoattenuating liver lesions which demonstrate peripheral. In the dome of the liver there is a 1.6 cm hypoattenuating lesion on image 24. In hepatic segment 2 on image 44 there is a 1.7 cm hypoattenuating lesion. There are multiple other scattered hypoattenuating liver lesion. The portal vein is patent. The gallbladder has been surgically removed. There is no biliary dilatation. Normal appearance of the pancreas. There are multiple new hypodense lesions seen throughout the spleen which demonstrate some peripheral enhancement. This can be seen on image 51 as well as image 63. There is adjacent soft tissue stranding. Both adrenal glands are normal. There is no hydronephrosis involving either kidney. There is retained contrast material within the kidneys. The bladder is filled with contrast from prior contrast enhanced CT examination. Redemonstrated is a large anomaly cystic mass with associated septations arising from the right adnexa. Uterus itself is normal appearing. The left adnexa appears normal. There are findings of perforated diverticulitis of the descending/sigmoid colon with a contained microperforation. The findings are similar when compared to the prior examination. This can be seen on image 134. There is associated soft tissue stranding within the mesentery Remainder of the bowel is normal appearing. There are scattered subcentimeter reactive mesenteric and retroperitoneal lymph nodes. Bone windows show no suspicious lytic or blastic lesions. Impression: 1. Findings of perforated diverticulitis of the descending/sigmoid colon with a contained perforation. There has been interval development of numerous hypoattenuating lesions seen throughout the liver and spleen consistent with abscesses. 2. 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 3. Small left pleural effusion. The right pleural effusion has resolved in the interval. Electronically signed by: Parvez Keating M.D. CTA/CTP Rapid Stroke (C) Narrative: EXAMINATION: 1. Computed tomography angiography (CTA) of the head without and with contrast 2. Computed tomography angiography (CTA) of the neck with contrast 3. CT perfusion imaging of the head with contrast HISTORY: Aphasia and right arm weakness TECHNIQUE: CT of the head was performed with images acquired from skull base to vertex without intravenous contrast. Computed tomographic angiography was then obtained from the aortic arch to the vertex following the uneventful administration of intravenous contrast. 3D images were generated on a dedicated workstation. CT perfusion of the brain was performed with intravenous contrast using a separate data acquisition. The data was transmitted to a separate workstation for processing by RAPID software ([employer]) to produce automated calculations of the estimated cerebral blood flow and Tmax. Contrast information: 110 mL Optiray-350 COMPARISON: CT dated 09/24/2023 FINDINGS: HEAD CT FINDINGS: There is no acute intracranial hemorrhage. There is no noncontrast evidence of acute stroke. There is no vascular hyperdensity of the M1 segments or basilar artery. Scattered ill-defined hypodensities in the periventricular and subcortical white matter are nonspecific, likely on the basis of chronic small vessel ischemic change. There is parenchymal volume loss. There are atherosclerotic calcifications of the intracranial vessels. There are no lacunar infarcts. Cerebral volume is typical for age. Ventricles are of normal size and morphology. There is no mass effect or midline shift. ANGIOGRAPHIC FINDINGS: The visualized aortic arch appears normal with normal configuration of the great vessels. There is no significant stenosis of the origins of the great vessels. There is no geographic area of vascular paucity in the brain. Left anterior circulation: L CCA: no occlusion or significant stenosis L carotid bifurcation: Mild calcified atherosclerosis without significant narrowing, no occlusion or significant stenosis L ICA proximal: no occlusion or significant stenosis, tortuous distal left extracranial ICA without significant narrowing L ICA distal: Mild calcified atherosclerosis without significant narrowing, no occlusion or significant stenosis L ICA terminus: no occlusion or significant stenosis L M1: no occlusion or significant stenosis L M2 branches: no occlusion or significant stenosis L A2: no occlusion or significant stenosis Right anterior circulation: R CCA: no occlusion or significant stenosis R carotid bifurcation: Mild calcified atherosclerosis without significant narrowing, no occlusion or significant stenosis R ICA proximal: no occlusion or significant stenosis R ICA distal: Mild calcified atherosclerosis without significant narrowing, no occlusion or significant stenosis R ICA terminus: no occlusion or significant stenosis R M1: no occlusion or significant stenosis R M2 branches: no occlusion or significant stenosis R A2: no occlusion or significant stenosis Posterior circulation: L Vertebral Artery: no occlusion or significant stenosis, dominant R Vertebral Artery: Mild atherosclerotic narrowing at the origin and in the V4 segment, no occlusion or significant stenosis Basilar Artery: no occlusion or significant stenosis L GROUNDS MAINTENANCE WORKER: no occlusion or significant stenosis R GROUNDS MAINTENANCE WORKER: no occlusion or significant stenosis No cerebral aneurysm is seen. There is no evidence for an arteriovenous malformation. There is no suspicious cervical lymphadenopathy. Multinodular right thyroid goiter. Moderate multilevel cervical spondylosis. Limited views of the lung apices are normal. PERFUSION FINDINGS: Estimated ischemic core volume (rCBF < 0.3): 0 mL Estimated hypoperfusion volume (Tmax > 6 sec): 0 mL Impression: 1. No CT evidence of stroke. 2. No significant carotid artery stenosis. The noncontrast CT head results were discussed with Dr. Squires by Dr. Green on 11/04/2023 at 10:37 AM The CTA/CTP results were discussed with Dr. Hdez by Dr. Green on 11/04/2023 at 11:00 AM Dictated by: Bi Green MD The radiology attending physician has personally reviewed this study, and had reviewed and/or edited this written report and agrees with it. Electronically signed by: Janel Cole M.D. ECG 12 lead Pilo Davis MD 11/04/2023 12:24 PM ECG 12 lead Date/Time: 11/04/2023 12:24 PM Performed by: Pilo Davis MD Authorized by: Pilo Davis MD Rate: ECG rate: 108 ECG rate assessment: tachycardic Rhythm: Rhythm: sinus tachycardia Ectopy: Ectopy: none QRS: QRS axis: Normal QRS intervals: Normal Conduction: Conduction: normal ST segments: ST segments: Non-specific T waves: T waves: inverted Previous ECG: Previous ECG: Unavailable Interpretation: Interpretation: abnormal Recommended Follow-up: Recommended follow up: further workup in the ED XR Chest PA Lateral 2 Views Narrative: EXAMINATION: 2 view chest radiograph Impression: Mild bilateral atelectasis. No pneumonia. No pleural effusion or pneumothorax. The cardiomediastinal silhouette is normal. Dictated by: Eleuterio Bañuelos M.D. The radiology attending physician has personally reviewed this study, and had reviewed and/or edited this written report and agrees with it. Electronically signed by: Parvez Keating M.D. ASSESSMENT & PLAN Farhana Russo is a 63 y.o. female with PMH HTN, DM, recurrent diverticulitis, ulcerative colitis,and adnexal mass who presented with 1 day of altered mental status and confusion. She was seen by the [facility] team and was determined to have stroke mimic, CTH and bMRI were negative. AMS and aphasia subsequently resolved. She was seen by colorectal surgery for evaluation of perforated diverticulitis, who deferred surgical management at this time and will follow outpatient. # Acute encephalopathy / speech deficits # Perforated diverticulitis with hepatic and splenic abscesses Presented with picture concerning for acute stroke, however CTH and bMRI without signs of acute stroke. Speech deficits most likely stroke mimic in the setting of acute infection/illness. Imaging findings/Leukocytosis concerning for colonic microperforation and abdominal abscesses. Has been following with CRS and [employer] [facility] outpatient, deferring surgical intervention at this time. CRS examined patient today, reassured by abdominal exam and cleared her for discharge with an oral course of antibiotics and outpatient follow up. - CRS following peripherally, cleared for discharge - will schedule follow- up with Dr. Ferreira after colonoscopy to discuss elective sigmoid colectomy - will transition to cirpo and flagyl on discharge, four week course - stop previous augmentin - BCx- no growth to date - IR consulted, notes too small abscess to drain - PPI 40mg daily - GI FYI'd, will defer to outpatient for colonoscopy and has one scheduled 11/12 - has had perf since early September which has been stable, CRS ok'd for outpatient colonoscopy # Anemia Folate, B12, low with iron studies consistent with anemia of chronic disease. Suspect anemia is result of systemic inflammation in conjunction with poor gut absorption due to IBD. Hgb 6.9, received 1unit pRBC and shanika to 8.1 - s/p 1 unit pRBC - Iron studies: AoCD # Malnutrition Suspect secondary to IBD and possible underlying malignancy. - Calorie counts - Electrolyte checks - RD consult # Hyponatremia Possible contributor to AMS. Most likely in setting of poor oral intake. Has been improving with IVfluids (126 on admission, now 132). - mIVF - CTM daily BMPs # Adnexal mass Follows with [facility] but no formal diagnosis of cancer. Need to address colitis/diverticulitis prior to surgery. Could be contributing to weight loss - f/u with [facility] onc after colonoscopy # UC - Home mesalamine - ESR, CRP checked - f/u with GI outpatient for previously scheduled colonoscopy Diet: Adult Diet Clear Liquid Dispo: Floor Code Status: Full Code DVT: lovenox Yajaira Ackerman MD Internal Medicine, PGY-1 11:50 AM 11/06/23 Cosigned by Candy Peterson MD at 11/07/2023 1:00 PM CDT Associated attestation - Candy Peterson MD - 11/07/2023 1:00 PM CDT Attending Documentation I have seen and examined the patient on 11/06/23. I agree with the findings and plan of care as documented in the resident's/fellow's note. Supplementary Attestation Today, I am treating the patient for diverticulitis which is in severe exacerbation, progression, or experiencing treatment side effects as evidenced by perforation with hepatic/splenic abscesses, acute encephalopathy, as described in the note. Reviewed records from the following unique sources (external institutions or providers from different services): gynecology/oncology, colorectal surgery, and GI notes from September admission. Independently interpreted CT A/P which shows multiple hepatic & splenic abscesses, colonic stranding. Discussed management of perforated diverticulitis with colorectal surgery and GI. Candy Peterson MD * Amarilis Copeland - 11/06/2023 10:47 AM CDT Physical Therapy Physical Therapy Evaluation Note NOTE: This is a summary note of the brown components of the evaluation session. For full details, review chart for all flowsheets documented on by this physical therapy clinician on this date. Vital signs are documented in the vital signs flowsheet. For questions, please review the treatment team and contact the PT or WREATH MACHINE TENDER currently assigned to this patient. If a physical therapy clinician is not assigned to this patient, please call [phone]. 11/06/23 1047 General Chart Reviewed Yes [facility] Received On 11/06/23 Safe Environment Arm band checked;Patient found sitting at edge of bed;Gait belt utilized for all out of bed mobility Subjective Agreeable to Therapy Family/Caregiver Present Yes Physical Therapy-Patient Goal and daughter Precautions Precautions Fall risk Weight Bearing Restrictions No Precaution Handout Issued No Home Living Type of Home House Home Layout One level Home Access Stairs to enter with rails Entrance Stairs-Rails Both Entrance Stairs-Number of Steps 6 Home Mobility Equipment-Available Wheeled walker;Single point cane Home Mobility Equipment-Currently Using None Home ADL Equipment-Available None Home ADL Equipment-Currently Using None Prior Function Level of Rabun Independent functional transfers;Independent with ambulation Lives With Spouse Receives Help From Spouse/Significant other;Family (spouse is able to provide FT assist at home during recovery,daughter avaliable for PT) Fall within the last 6 months Yes Fall within the last 6 months comment slipped out of chair leading to admission Activity Tolerance Activity Tolerance Comments surjit: light Pain Assessment Pain Assessment No/denies pain Cognition Arousal/Alertness Alert;Appropriate responses to stimuli Orientation Oriented X4 (person, place, time, situation) Following Commands Follows all commands and directions without difficulty Safety Judgment Good awareness of safety precautions Compliance/Behavior Easy to engage Balance Tests Balance Tests Yes Dynamic Gait Index Gait Level Surface 3 Change in Gait Speed 2 Gait with Horizontal Head Turns 3 Gait with Vertical Head Turns 3 (modified DGI score 11/12) Balance Balance Yes Static Sitting Balance Static Sitting-Balance Support Feet supported;No upper extremity supported Static Sitting-Sitting Surface Bed Static Sitting-Level of Assistance Independent Static Standing Balance Static Standing-Balance Support No upper extremity supported Static Standing-Standing Surface Floor Static Standing-Level of Assistance Independent Transfers Transfer Yes Transfer 1 Transfer From 1 Sit Transfer Type 1 To and from Transfer to 1 Stand Technique 1 Sit to stand;Stand to sit Transfer Device 1 No device Transfer Level of Assistance 1 Independent Ambulation Ambulation Yes Ambulation 1 Distance (ft) 1 150 Surface 1 Level tile Device 1 No device Assistance 1 Standby Assist Gait: Requires verbal cues to 1 Prevent bumping into environmental barriers (joy/furniture) Gait Deviations 1 Posterior lean;Alicia - decreased;Step length - decreased Ambulation Comments 1 SBA for safety Stairs Stairs No RLE Assessment RLE Assessment WFL LLE Assessment [...] 3 Total 6 Click Score (range 6-24) 21 Safe Environment End of Therapy Session Safe Environment End of Therapy Session Patient left sitting at edge of bed;Call light within reach (spouse and daughter present) Assessment Problem List Comments no problems present requiring skilled PT in acute care setting Barriers to Discharge None Plan Plan Discharge;If this is the last note, consider this the discharge summary Recommendation/Plan PT Recommendation/Plan Home with family;Home with 24 hour supervision PT Recommendation/Plan Comments PT POC discussed with pt and family members, all verbalized agreement PT Frequency during current admission One time visit (Discharge from this service) PT Equipment Recommended None PT - OK to Discharge Yes PT Evaluation Complete Yes Time Calculation Start Time 1047 Stop Time 1104 Time Calculation (min) 17 min Multi-Disciplinary Problems (from Physical Therapy) Active Problems Not on file Cosigned by Meka Hu PT at 11/06/2023 12:05 PM CDT * Claire Ybarra OT - 11/06/2023 8:38 AM CDT Occupational Therapy Occupational Therapy Evaluation [...] not assigned to this patient, please call [phone]. 11/06/23 0838 General Chart Reviewed Yes Session Type Evaluation (initial dc) OT Received On 11/06/23 Safe Environment Arm band checked;Patient found in supine;Session completed bedside;Gait belt utilized for all out of bed mobility Subjective Agreeable to Therapy Subjective Comment They won't let me get up Family/Caregiver Present Yes () Occupational Therapy-Patient Goal to go home Precautions Precautions Fall risk Weight Bearing Restrictions No Precaution Handout Issued No Home Living Type of Home House Home Layout One level Home Access Stairs to enter with rails Entrance Stairs-Rails Both Entrance Stairs-Number of Steps 6 Bathroom Shower/Tub Walk-in shower with threshold Bathroom Toilet Standard Home Mobility Equipment-Available Single point cane;4-Wheeled walker Home Mobility Equipment-Currently Using None Home ADL Equipment-Available None Home ADL Equipment-Currently Using None Prior Function Level of Rabun Independent with ADLs;Independent functional transfers;Independent with ambulation;Independent with homemaking with ambulation Lives With Spouse Receives Help From Spouse/Significant other (reports FT assist available if necessary) Driving Yes Mode of Transportation Driven by self 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 Fall within the last 6 months Yes Fall within the last 6 months comment One fall in kitchen leading to current hospitalization ADL ADLS (WDL) X Grooming Grooming: Where assessed Standing at sink Grooming: Level of assistance Independent LE Dressing LE Dressing: Where assessed Edge of bed LE Dressing: Level of assistance Independent Toileting Toileting: Where assessed Toilet Toileting: Level of assistance Independent Room Mobility Room Mobility: Where assessed to/from bathroom Health Management: Equipment (none) Room Mobility: Level of Assistance Independent Toilet Transfers Toilet Transfer From Bed Toilet Transfer Type To and from Toilet Transfer to Standard toilet Toilet Transfer Technique Ambulating Toilet Transfer: Equipment No device Toilet Transfers Independent Pain Assessment Pain Assessment No/denies pain Perception Inattention/Neglect Appears intact Initiation Appears intact Perseveration Not present Cognition Cognition Comments SMART protocol conducted, no deficits or concerns noted Overall Cognitive Status WFL Arousal/Alertness Alert;Appropriate responses [...] name and address after me John Cramer [address] [place] [address] Without looking at the clock, tell me what time it is 0 Count aloud backwards from 20-1 0 Say the months of the year backwards in reverse order 0 Repeat the name and address I asked you to remember 0 Short Blessed Total Score 0 Short Blessed Comments WFL Mesulam Cancellation Test Mesulam Unstructured Left Omissions 0 Right Omissions 0 Neglect Score 0 Time to Complete 3 min Trails A & B (Lyons Making Test) Patient completed Trails A in (seconds) 93 Trails A # of errors 0 Trails A score evaluation WNL Patient completed Trails B in (seconds) 96 Trails B # of errors 0 Trails B score evaluation WNL Hand Preference Hand Preference Right Hand Function Coordination Functional Gross Grasp Functional Balance Tests Balance Tests [...] Independent Dynamic Sitting Balance Dynamic Sitting-Balance Support No upper extremity supported;Feet supported Dynamic Sitting-Balance Forward lean Dynamic Sitting-Sitting Surface Bed Dynamic Sitting-Level of Assistance Independent Static Standing Balance Static Standing-Balance Support No upper extremity supported Static Standing-Standing Surface Floor Static Standing-Level of Assistance Independent Dynamic Standing Balance Dynamic Standing-Balance Support No upper extremity supported Dynamic Standing-Balance Forward lean;Reaching for objects Dynamic Standing-Standing Surface Floor Dynamic Standing-Level of Assistance Independent Bed Mobility Bed Mobility Yes Bed Mobility 1 Bed Mobility From 1 Supine Bed Mobility Type 1 To and from Bed Mobility to 1 Edge of bed Level of Assistance 1 Modified Independent Bed Mobility Comments 1 Elev HOB Transfers Transfer Yes Transfer 1 Transfer From 1 Sit Transfer Type 1 To and from Transfer to 1 Stand Technique 1 Sit to stand;Stand to sit Transfer Device 1 No device Transfer Level of Assistance 1 Independent RUE Assessment RUE Assessment WFL RUE Comments Strength grossly 4-/5 all joints LUE Assessment LUE Assessment WFL LUE Comments Strength grossly 4-/5 all joints Other Comments Comments Pt demonstrates good safety and indep in ADL's and functional mobility at this time. Normal scores on all aspects of SMART protocol. No indication for further acute OT needs identified, willd/c OT. Daily Activity - 6 Clicks Putting on [...] current admission One-time visit (Discharge from this service);Discharge from this Service OT Equipment Recommended None OT - OK to Discharge Yes OT Evaluation Complete Yes Time Calculation Start Time 0838 Stop Time 0918 Time Calculation (min) 40 min Multi-Disciplinary Problems (from Occupational Therapy) Active Problems Not on file * Lubna Wright MD - 11/06/2023 7:58 AM CDT Colorectal Surgery Consults Daily Progress Note Subjective Chief complaint: diverticulitis with contained perforation Interval History: - remains afebrile with stable vitals. Received 1u pRBC overnight for Hgb of 6.9, with appropriate response to Hgb of 8.1 - denies any abdominal pain. Tolerating clears without abdominal pain or nausea - was scheduled to have outpatient MRE and colonoscopy with GI next week - WBC downtrending 23 -> 13 -> 12.3 Current Facility-Administered Medications: acetaminophen (TYLENOL) tablet 650 mg, 650 mg, oral, Q4H PRN, Guerita Sena MD bisacodyl EC (DULCOLAX EC) tablet 10 mg, 10 mg, oral, Daily PRN OR bisacodyL (DULCOLAX) suppository 10 mg, 10 mg, rectal, Daily PRN, Guerita Sena MD enoxaparin (LOVENOX) syringe 40 mg, 40 mg, subcutaneous, Daily-2100, Guerita Sena MD, 40 mg at 11/05/232116 ferrous sulfate tablet 325 mg, 65 mg of elemental iron, oral, Daily with breakfast, Monica Bridges NP Lactated Ringer's (LR) infusion, 75 mL/hr, intravenous, Continuous, Guerita Sena MD, Last Rate: 75 mL/hr at 11/05/23 105, 75 mL/hr at 11/05/231056 loperamide (IMODIUM) capsule 2 mg, 2 mg, oral, BID PRN, Guerita Sena MD, 2 mg at 11/05/232115 losartan (COZAAR) tablet 25 mg, 25 mg, oral, Daily, Monica Bridges NP, 25 mg at 11/05/231058 mesalamine (CANASA) suppository 1,000 mg, 1,000 mg, rectal, Nightly, Monica Bridges NP, 1,000mg at 11/05/232115 pantoprazole DR (PROTONIX) extended release tablet 40 mg, 40 mg, oral, Daily, Monica Bridges NP, 40 mg at 11/05/231058 piperacillin-tazobactam (ZOSYN) 3.375 gram/65 mL in sodium chloride 0.9% (premix) 3.375 g, 3.375 g,intravenous, Q6H DARIN, Guerita Sena MD, Last Rate: 130 mL/hr at 11/06/23 0601, 3.375 g at 11/06/23 06 polyethylene glycol (MIRALAX) packet 17 g, 17 g, oral, Daily PRN, Guerita Sena MD Objective Physical Exam: General: No acute distress Neuro: alert and oriented x3, mood and affect appropriate, no focal deficits HEENT: normocephalic, EOMs grossly normal Pulmonary: non-labored breathing on room air Cardiovascular: well perfused GI: abdomen soft, non-tender, minimally distended, well healed laparoscopic scars Skin: smooth and dry, no rashes MSK: grossly normal range of motion Lab/Radiology/Diagnostic Review: Laboratory review: Lab results in the last 24 hours: Recent Results (from the past 24 hour(s)) Comprehensive metabolic panel Collection Time: 11/05/23 10:41 AM Result Value Ref Range Sodium 134 (L) 135 - 145 mmol/L Potassium, pl 3.7 3.3 - 4.9 mmol/L Chloride 96 (L) 97 - 110 mmol/L CO2 25 22 - 32 mmol/L Anion gap 13 2 - 15 mmol/L BUN 13 6 - 25 mg/dL Creatinine 0.82 0.60 - 1.10 mg/dL Glucose 89 70 - 199 mg/dL Calcium 8.3 (L) 8.5 - 10.3 mg/dL Bilirubin, total 0.3 0.1 - 1.2 mg/dL Protein, pl 6.5 6.5 - 8.5 g/dL Albumin 2.5 (L) 3.5 - 5.0 g/dL Alk phos 130 40 - 130 Units/L ALT 41 7 - 45 Units/L AST 103 (H) 10 - 45 Units/L CBC with auto differential Collection Time: 11/05/23 10:41 AM Result Value Ref Range WBC 13.1 (H) 3.8 - 9.9 K/cumm Hgb 7.1 (L) 11.9 - 15.5 g/dL Hct 23.2 (L) 35.6 - 45.5 % Plt 467 (H) 150 - 400 K/cumm MPV 8.6 (L) 9.1 - 12.3 fL RBC 2.83 (L) 3.90 - 5.20 M/cumm MCV 82.0 81.3 - 96.4 fL MCH 25.1 (L) 27.1 - 33.3 pg MCHC 30.6 (L) 32.3 - 35.7 g/dL RDW CV 18.5 (H) 11.1 - 14.9 % RDW SD 56.0 (H) 35.7 - 48.1 fL NRBC abs 0.00 0.00 - 0.01 K/cumm Differential, auto Collection Time: 11/05/23 10:41 AM Result Value Ref Range Neutrophil abs 10.5 (H) 1.5 - 6.5 K/cumm Imm gran abs 0.1 0.0 - 0.1 K/cumm Lymphocyte abs 1.4 0.8 - 3.3 K/cumm Monocyte abs 1.1 (H) 0.2 - 0.8 K/cumm Eosinophil abs 0.1 0.0 - 0.5 K/cumm Basophil abs 0.0 0.0 - 0.1 K/cumm Neutrophil pct 79.8 % Imm gran pct 0.8 % Lymphocyte pct 10.4 % Monocyte pct 8.4 % Eosinophil pct 0.4 % Basophil pct 0.2 % eGFR Collection Time: 11/05/23 10:41 AM Result Value Ref Range eGFR 79 >=60 mL/min/1.73 m2 CRP (acute phase) Collection Time: 11/05/23 5:34 PM Result Value Ref Range CRP 296.6 (H) <=10.0 mg/L Erythrocyte sedimentation rate Collection Time: 11/05/23 5:34 PM Result Value Ref Range Erythrocyte sedimentation rate 104 (H) 1 - 30 mm/hr Comprehensive metabolic panel Collection Time: 11/05/23 5:34 PM Result Value Ref Range Sodium 133 (L) 135 - 145 mmol/L Potassium, pl 3.7 3.3 - 4.9 mmol/L Chloride 94 (L) 97 - 110 mmol/L CO2 24 22 - 32 mmol/L Anion gap 15 2 - 15 mmol/L BUN 13 6 - 25 mg/dL Creatinine 0.86 0.60 - 1.10 mg/dL Glucose 96 70 - 199 mg/dL Calcium 8.6 8.5 - 10.3 mg/dL Bilirubin, total 0.5 0.1 - 1.2 mg/dL Protein, pl 7.2 6.5 - 8.5 g/dL Albumin 2.6 (L) 3.5 - 5.0 g/dL Alk phos 140 (H) 40 - 130 Units/L ALT 46 (H) 7 - 45 Units/L AST 132 (H) 10 - 45 Units/L CBC with auto differential Collection Time: 11/05/23 5:34 PM Result Value Ref Range WBC 13.6 (H) 3.8 - 9.9 K/cumm Hgb 8.0 (L) 11.9 - 15.5 g/dL Hct 25.8 (L) 35.6 - 45.5 % Plt 484 (H) 150 - 400 K/cumm MPV 8.5 (L) 9.1 - 12.3 fL RBC 3.13 (L) 3.90 - 5.20 M/cumm MCV 82.4 81.3 - 96.4 fL MCH 25.6 (L) 27.1 - 33.3 pg MCHC 31.0 (L) 32.3 - 35.7 g/dL RDW CV 18.5 (H) 11.1 - 14.9 % RDW SD 55.8 (H) 35.7 - 48.1 fL NRBC abs 0.00 0.00 - 0.01 K/cumm Type and screen Collection Time: 11/05/23 5:34 PM Result Value Ref Range ABO Rh O Positive Maira, indirect Negative Iron profile w/ IBC Collection Time: 11/05/23 5:34 PM Result Value Ref Range Iron 11 (L) 35 - 145 mcg/dL TIBC 95 (L) 250 - 400 mcg/dL Transferrin saturation 12 (L) 20 - 50 % Ferritin Collection Time: 11/05/23 5:34 PM Result Value Ref Range Ferritin 1,868 (H) 13 - 150 ng/mL Differential, auto Collection Time: 11/05/23 5:34 PM Result Value Ref Range Neutrophil abs 11.0 (H) 1.5 - 6.5 K/cumm Imm gran abs 0.1 0.0 - 0.1 K/cumm Lymphocyte abs 1.2 0.8 - 3.3 K/cumm Monocyte abs 1.2 (H) 0.2 - 0.8 K/cumm Eosinophil abs 0.1 0.0 - 0.5 K/cumm Basophil abs 0.0 0.0 - 0.1 K/cumm Neutrophil pct 80.6 % Imm gran pct 0.8 % Lymphocyte pct 9.0 % Monocyte pct 9.0 % Eosinophil pct 0.4 % Basophil pct 0.2 % Phosphorus Collection Time: 11/05/23 5:34 PM Result Value Ref Range Phosphorus, pl 4.2 2.3 - 4.5 mg/dL eGFR Collection Time: 11/05/23 5:34 PM Result Value Ref Range eGFR 75 >=60 mL/min/1.73 m2 Magnesium Collection Time: 11/05/23 5:34 PM Result Value Ref Range Magnesium 1.1 (L) 1.4 - 2.5 mg/dL ECG 12 lead Collection Time: 11/05/23 5:49 PM Result Value Ref Range Ventricular Rate EKG/Min 101 BPM Atrial Rate 101 BPM MT-Interval (MSEC) 124 ms QRS-Interval (MSEC) 84 ms QT-Interval (MSEC) 356 ms QTc 461 ms P [place] 12 degrees R [place] -15 degrees T [place] 0 degrees Diagnosis Sinus tachycardia Cannot rule out Anterior infarct , age undetermined Abnormal ECG No previous ECGs available Basic metabolic panel Collection Time: 11/05/23 11:55 PM Result Value Ref Range Sodium 132 (L) 135 - 145 mmol/L Potassium, pl 3.4 3.3 - 4.9 mmol/L Chloride 94 (L) 97 - 110 mmol/L CO2 24 22 - 32 mmol/L Anion gap 14 2 - 15 mmol/L BUN 12 6 - 25 mg/dL Creatinine 0.88 0.60 - 1.10 mg/dL Glucose 82 70 - 199 mg/dL Calcium 8.0 (L) 8.5 - 10.3 mg/dL CBC with auto differential Collection Time: 11/05/23 11:55 PM Result Value Ref Range WBC 12.3 (H) 3.8 - 9.9 K/cumm Hgb 6.9 (L) 11.9 - 15.5 g/dL Hct 22.1 (L) 35.6 - 45.5 % Plt 434 (H) 150 - 400 K/cumm MPV 8.9 (L) 9.1 - 12.3 fL RBC 2.70 (L) 3.90 - 5.20 M/cumm MCV 81.9 81.3 - 96.4 fL MCH 25.6 (L) 27.1 - 33.3 pg MCHC 31.2 (L) 32.3 - 35.7 g/dL RDW CV 18.6 (H) 11.1 - 14.9 % RDW SD 55.3 (H) 35.7 - 48.1 fL NRBC abs 0.00 0.00 - 0.01 K/cumm Differential, auto Collection Time: 11/05/23 11:55 PM Result Value Ref Range Neutrophil abs 9.3 (H) 1.5 - 6.5 K/cumm Imm gran abs 0.1 0.0 - 0.1 K/cumm Lymphocyte abs 1.6 0.8 - 3.3 K/cumm Monocyte abs 1.2 (H) 0.2 - 0.8 K/cumm Eosinophil abs 0.1 0.0 - 0.5 K/cumm Basophil abs 0.0 0.0 - 0.1 K/cumm Neutrophil pct 75.9 % Imm gran pct 0.6 % Lymphocyte pct 12.9 % Monocyte pct 9.6 % Eosinophil pct 0.7 % Basophil pct 0.3 % eGFR Collection Time: 11/05/23 11:55 PM Result Value Ref Range eGFR 73 >=60 mL/min/1.73 m2 Prepare RBC: 1 Units Collection Time: 11/06/23 1:52 AM Result Value Ref Range Product code [id number] Unit Number [id number] Product Blood Type OPOS Dispense Status ISSUED Hemoglobin and hematocrit Collection Time: 11/06/23 6:31 AM Result Value Ref Range Hgb 8.1 (L) 11.9 - 15.5 g/dL Hct 25.2 (L) 35.6 - 45.5 % Image Review: MRI Brain WO Contrast Narrative: EXAMINATION: Magnetic resonance imaging (MRI) of the brain and brainstem without contrast HISTORY: 63 years-old Female with Neuro deficit, acute, stroke suspected. TECHNIQUE: Multiplanar multi-weighted MRI of the brain and brainstem was performed without intravenous contrast using the general brain protocol. COMPARISON: CT head 11/04/2023. FINDINGS: The scalp and calvarium are normal. The superior sagittal sinus demonstrates normal venous flow. The corpus callosum is normal in shape and signal intensity. The posterior fossa is unremarkable. The pituitary and sella are normal. The brainstem and craniocervical junction are unremarkable. Diffusion weighted images reveal no hyperintensities to suggest acute cerebral infarction. The susceptibility weighted sequences reveal no evidence of acute or chronic hemorrhage. The ventricles are normal in size and position without evidence of hydrocephalus. The paranasal sinuses are normal. The visualized portions of the mastoids are unremarkable. The orbits appear normal. Normal flow voids are demonstrated in the carotid arteries and basilar artery. Impression: No acute intracranial abnormality. Dictated by: Fan Arias M.D. The radiology attending physician has personally reviewed this study, and had reviewed and/or edited this written report and agrees with it. Electronically signed by: Deangelo Mcmahon MD CT Abdomen Pelvis W Contrast Narrative: EXAMINATION: Computed tomography of the abdomen/pelvis with intravenous contrast HISTORY: Found down TECHNIQUE: Transaxial computed tomographic images of the abdomen/pelvis were obtained with intravenous contrast according to the standard protocol after the uneventful administration of 100 mL Opti-Ray 350 intravenous contrast. COMPARISON: 10/23/2023 FINDINGS: Small left pleural effusion with resolution of the right effusion. There is bibasilar atelectasis In the interval there has been development of multiple hypoattenuating liver lesions which demonstrate peripheral. In the dome of the liver there is a 1.6 cm hypoattenuating lesion on image 24. In hepatic segment 2 on image 44 there is a 1.7 cm hypoattenuating lesion. There are multiple other scattered hypoattenuating liver lesion. The portal vein is patent. The gallbladder has been surgically removed. There is no biliary dilatation. Normal appearance of the pancreas. There are multiple new hypodense lesions seen throughout the spleen which demonstrate some peripheral enhancement. This can be seen on image 51 as well as image 63. There is adjacent soft tissue stranding. Both adrenal glands are normal. There is no hydronephrosis involving either kidney. There is retained contrast material within the kidneys. The bladder is filled with contrast from prior contrast enhanced CT examination. Redemonstrated is a large anomaly cystic mass with associated septations arising from the right adnexa. Uterus itself is normal appearing. The left adnexa appears normal. There are findings of perforated diverticulitis of the descending/sigmoid colon with a contained microperforation. The findings are similar when compared to the prior examination. This can be seen on image 134. There is associated soft tissue stranding within the mesentery Remainder of the bowel is normal appearing. There are scattered subcentimeter reactive mesenteric and retroperitoneal lymph nodes. Bone windows show no suspicious lytic or blastic lesions. Impression: 1. Findings of perforated diverticulitis of the descending/sigmoid colon with a contained perforation. There has been interval development of numerous hypoattenuating lesions seen throughout the liver and spleen consistent with abscesses. 2. 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 3. Small left pleural effusion. The right pleural effusion has resolved in the interval. Electronically signed by: Parvez Keating M.D. CTA/CTP Rapid Stroke (C) Narrative: EXAMINATION: 1. Computed tomography angiography (CTA) of the head without and with contrast 2. Computed tomography angiography (CTA) of the neck with contrast 3. CT perfusion imaging of the head with contrast HISTORY: Aphasia and right arm weakness TECHNIQUE: CT of the head was performed with images acquired from skull base to vertex without intravenous contrast. Computed tomographic angiography was then obtained from the aortic arch to the vertex following the uneventful administration of intravenous contrast. 3D images were generated on a dedicated workstation. CT perfusion of the brain was performed with intravenous contrast using a separate data acquisition. The data was transmitted to a separate workstation for processing by RAPID software ([employer]) to produce automated calculations of the estimated cerebral blood flow and Tmax. Contrast information: 110 mL Optiray-350 COMPARISON: CT dated 09/24/2023 FINDINGS: HEAD CT FINDINGS: There is no acute intracranial hemorrhage. There is no noncontrast evidence of acute stroke. There is no vascular hyperdensity of the M1 segments or basilar artery. Scattered ill-defined hypodensities in the periventricular and subcortical white matter are nonspecific, likely on the basis of chronic small vessel ischemic change. There is parenchymal volume loss. There are atherosclerotic calcifications of the intracranial vessels. There are no lacunar infarcts. Cerebral volume is typical for age. Ventricles are of normal size and morphology. There is no mass effect or midline shift. ANGIOGRAPHIC FINDINGS: The visualized aortic arch appears normal with normal configuration of the great vessels. There is no significant stenosis of the origins of the great vessels. There is no geographic area of vascular paucity in the brain. Left anterior circulation: L CCA: no occlusion or significant stenosis L carotid bifurcation: Mild calcified atherosclerosis without significant narrowing, no occlusion or significant stenosis L ICA proximal: no occlusion or significant stenosis, tortuous distal left extracranial ICA without significant narrowing L ICA distal: Mild calcified atherosclerosis without significant narrowing, no occlusion or significant stenosis L ICA terminus: no occlusion or significant stenosis L M1: no occlusion or significant stenosis L M2 branches: no occlusion or significant stenosis L A2: no occlusion or significant stenosis Right anterior circulation: R CCA: no occlusion or significant stenosis R carotid bifurcation: Mild calcified atherosclerosis without significant narrowing, no occlusion or significant stenosis R ICA proximal: no occlusion or significant stenosis R ICA distal: Mild calcified atherosclerosis without significant narrowing, no occlusion or significant stenosis R ICA terminus: no occlusion or significant stenosis R M1: no occlusion or significant stenosis R M2 branches: no occlusion or significant stenosis R A2: no occlusion or significant stenosis Posterior circulation: L Vertebral Artery: no occlusion or significant stenosis, dominant R Vertebral Artery: Mild atherosclerotic narrowing at the origin and in the V4 segment, no occlusion or significant stenosis Basilar Artery: no occlusion or significant stenosis L [employer] WORKER: no occlusion or significant stenosis R GROUN[employer] MAINTENANCE WORKER: no occlusion or significant stenosis No cerebral aneurysm is seen. There is no evidence for an arteriovenous malformation. There is no suspicious cervical lymphadenopathy. Multinodular right thyroid goiter. Moderate multilevel cervical spondylosis. Limited views of the lung apices are normal. PERFUSION FINDINGS: Estimated ischemic core volume (rCBF < 0.3): 0 mL Estimated hypoperfusion volume (Tmax > 6 sec): 0 mL Impression: 1. No CT evidence of stroke. 2. No significant carotid artery stenosis. The noncontrast CT head results were discussed with Dr. Squires by Dr. Green on 11/04/2023 at 10:37 AM The CTA/CTP results were discussed with Dr. Hdez by Dr. Green on 11/04/2023 at 11:00 AM Dictated by: Bi Green MD The radiology attending physician has personally reviewed this study, and had reviewed and/or edited this written report and agrees with it. Electronically signed by: Janel Cole M.D. ECG 12 lead Pilo Davis MD 11/04/2023 12:24 PM ECG 12 lead Date/Time: 11/04/2023 12:24 PM Performed by: Pilo Davis MD Authorized by: Pilo Davis MD Rate: ECG rate: 108 ECG rate assessment: tachycardic Rhythm: Rhythm: sinus tachycardia Ectopy: Ectopy: none QRS: QRS axis: Normal QRS intervals: Normal Conduction: Conduction: normal ST segments: ST segments: Non-specific T waves: T waves: inverted Previous ECG: Previous ECG: Unavailable Interpretation: Interpretation: abnormal Recommended Follow-up: Recommended follow up: further workup in the ED XR Chest PA Lateral 2 Views Narrative: EXAMINATION: 2 view chest radiograph Impression: Mild bilateral atelectasis. No pneumonia. No pleural effusion or pneumothorax. The cardiomediastinal silhouette is normal. Dictated by: Eleuterio Bañuelos M.D. The radiology attending physician has personally reviewed this study, and had reviewed and/or edited this written report and agrees with it. Electronically signed by: Parvez Keating M.D. Vitals: 24hr Min/Max: Temp Min: 36.5 ??C (97.7 ??F) Max: 37 ??C (98.6 ??F) Pulse Min: 89 Max: 101 BP Min: 124/59 Max: 133/70 Resp Min: 16 Max: 18 SpO2 Min: 96 % Max: 98 % Most Recent : Vitals: 11/06/23 0445 BP: 133/70 Pulse: 97 Resp: 16 Temp: 36.6 ??C (97.9 ??F) SpO2: 97% I/O last 2 completed shifts: In: 465 [Blood:270; IV Piggyback:195] Out: - No intake/output data recorded. Plan Principal Problem: Expressive aphasia Plan 63yo F with a history of HTN, T2D, recently diagnosed adnexal mass, UC on mesalamine, recent perforated diverticulitis managed conservatively in September who is now admitted due to concern for stroke after being found down, since ruled out. Imaging notable for ongoing diverticulitis with contained perf, and now with new splenic and hepatic microabscesses. Was scheduled to have outpatient MRE and colonoscopy with GI next week. Bening abdominal exam without any abdominal complaints at this time. - okay to advance diet as tolerated - may transition to PO abx on discharge (Augmentin vs cipro/flagyl) - consider GI evaluation to assess need for inpatient Colonoscopy and/or MRE. Alternatively, can keep current appointment for next week - we will schedule patient for outpatient Colorectal Surgery follow-up with Dr. Ferreira after her colonoscopy to discuss elective sigmoid colectomy. Patient will also need oxyhydrogen welder/onc follow-up regarding adnexal mass - Colorectal Surgery Consults will follow peripherally Lubna Wright MD Colorectal Surgery Consults Cosigned by Yo Ferreira MD at 11/07/2023 10:38 AM CDT * Meka Hu, PT - 11/06/2023 7:11 AM CDT Physical Therapy 11/06/23 0711 General PT Missed Visit Reason Other (comment) (hgb <7 (6.9)) documented in this encounter H&P Notes * Guerita Sena MD - 11/05/2023 2:30 PM CDT MEDICINE ADMISSION HISTORY & PHYSICAL Date of Admission: 11/04/2023 [facility] Patient: Farhana Russo Room: [facility] ED4-07/ED4-07 SUBJECTIVE CHIEF COMPLAINT Confusion, altered mental status HISTORY OF PRESENT ILLNESS Farhana Russo is a 63 y.o. female with PMH HTN, DM, recurrent diverticulitis, ulcerative colitis,and adnexal mass presenting with 1 day of altered mental status and confusion. Farhana presented after her found her down in the bathroom at 0530 with aphasia, confusion, and not following commands or answering questions. She had been in her usual state of health at 0230 per when she got up to use the bathroom and returned to bed. While she was alert and interactive, she showed persistent speech deficits. No other focal neurologic deficits noted, ambulating well, and no appreciable facial droop. In ED, initials vitals were afebrile and WNL. Labs remarkable for WBC 23.5, hgb 7.6, and Na 126. Initial presentation with NIHSS of 5 (aphasia, AMS, normal motor/sensory/CN), resulting in code stroke. CT head was negative and subsequent bMRI also negative, making presentation most consistent with stroke mimic. CT A/P reveals perforated diverticulitis of descending/sigmoid colon with contained perforation and concern for multiple hepatic and splenic abscesses with large cystic mass in the pelvis. General surgery saw her in the ED and deferred surgical management at this time. Recommended CLD and possible broadening of antibiotics if clinical deterioration/concern for sepsis. Recently admitted to [facility] [employer] [facility] 10/01-10/03 for pelvic mass and suspected colonic microperforation. Discharged on Augmentin and flagyl and recommended waiting 4 weeks for surgical intervention. At follow-up on 10/22 recommended MRE and GI follow-up for OR intervention. On 10/26 GI follow-up, recommended MREand c-scope for UC with continued Augmentin with likely need for CRS resection. On arrival to floor, reports feeling close to her baseline. Her , Sj, at bedside, agreesthat she is close to her baseline. They reiterate the story told in the ED regarding her being found on the floor confused and not speaking right. Sj states that he checked her temperature and found her to be febrile. They are becoming frustrated with repeated admissions over the past few months and feel they are not getting consistent advice on diet to prevent recurrence of diverticulitis. She is also reporting weight loss despite attempting to gain weight with supplements and high protein drinks. Also frustrated that the etiology of the weight loss has not been pinpointed. Explained that it is likely multifactorial in the setting of ongoing colon inflammation, active infection, and abdominal abscesses. They also note that she has been persistently anemic and required transfusions as recently as this weekend. They would like an explanation for these findings as she has been taking vitamins as prescribed. PAST MEDICAL/SURGICAL HISTORY Past Medical History: Diagnosis Date Diabetes mellitus (HCC) Hypertension REVIEW OF SYSTEMS Per HPI; all other systems negative. SOCIAL HISTORY Lives with who is supportive and helps with care day to day. She stays active walking on flat ground outside the house FAMILY HISTORY No family history on file. ALLERGIES Allergies Allergen Reactions Azithromycin Rash HOME MEDICATIONS HOME MEDICATIONS : amoxicillin-clavulanate (AUGMENTIN) 875-125 mg per tablet ferrous sulfate 325 mg (65 mg of elemental iron) tablet losartan (COZAAR) 25 mg tablet mesalamine (CANASA) 1,[address] (PROTONIX) 40 mg EC tablet triamcinolone (KENALOG) 0.1 % paste metFORMIN (GLUCOPHAGE) 500 mg tablet OBJECTIVE VITALS / I&Os Most Recent : Vitals: 11/05/23 0600 BP: 127/70 Pulse: 94 Resp: 16 Temp: SpO2: 99% 24hr Min/Max: Pulse Min: 93 Max: 108 BP Min: 122/64 Max: 166/80 Resp Min: 16 Max: 24 SpO2 Min: 94 % Max: 99 % Intake/Output Summary (Last 24 hours) at 11/05/2023 1446 Last data filed at 11/04/2023 2336 Gross per 24 hour Intake 65 ml Output -- Net 65 ml I/O last 2 completed shifts: In: 65 [IV Piggyback:65] Out: - No intake/output data recorded. PHYSICAL EXAM Constitutional: Thin cachectic appearing woman with distended abdomen, comfortably resting in bed, thin with temporal wasting noted HEENT: MMM, hearing grossly intact, normal conjunctiva, no scleral icterus, EOMI Cardiovascular: Fast rate and regular rhythm, normal S1/S2, no murmurs/rubs/gallops. Trace bilateral pitting edema Pulmonary: Clear to auscultation bilaterally, normal work of breathing, no wheezing/rales/rhonchi Abdominal: Soft but firm, non-tender, distended, bowel sounds present. No guarding or rebound. No hepatosplenomegaly Extremities: Warm and well-perfused, equal pulses, no cyanosis or clubbing Skin: Warm and dry, no noted rashes Neurological: CN grossly intact, no focal deficits appreciated Psychiatric: Mood and affect normal LABS Recent Labs Lab Units 11/05/23 1041 11/04/23 0756 HEMOGLOBIN g/dL 7.1* 7.6* HEMATOCRIT % 23.2* 24.2* WBC K/cumm 13.1* 23.5* PLATELETS K/cumm 467* 475* Recent Labs Lab Units 11/05/23 1041 SODIUM mmol/L 134* POTASSIUM PLASMA mmol/L 3.7 CHLORIDE mmol/L 96* CO2 mmol/L 25 ANIONGAP mmol/L 13 BUN SERUM mg/dL 13 CREATININE mg/dL 0.82 CALCIUM mg/dL 8.3* Recent Labs Lab Units 11/05/23 1041 ALBUMIN g/dL 2.5* ALK PHOS Units/L 130 AST Units/L 103* ALT Units/L 41 BILIRUBIN TOTAL mg/dL 0.3 Recent Labs Lab Units 11/04/23 1108 APTT sec 23* Cultures: Lab Results Component Value Date MICROBIOLOGY Preliminary Report: No growth to date. 11/04/2023 MICROBIOLOGY Preliminary Report: No growth to date. 11/04/2023 MICROBIOLOGY 10/03/2023 Final Report: No growth of enteric bacterial pathogens MICROBIOLOGY Final Report: Negative 10/03/2023 MICROBIOLOGY 10/03/2023 Final Report: No growth of enteric bacterial pathogens MICROBIOLOGY Final Report: Negative 10/03/2023 IMAGING MRI Brain WO Contrast Result Date: 11/04/2023 No acute intracranial abnormality. Dictated by: Fan Arias M.D. The radiology attending physician has personally reviewed this study, and had reviewed and/or edited this written report and agreeswith it. Electronically signed by: Deangelo Mcmahon MD CT Abdomen Pelvis W Contrast Result Date: 11/04/2023 1. Findings of perforated diverticulitis of the descending/sigmoid colon with a contained perforation. There has been interval development of numerous hypoattenuating lesions seen throughout the liver and spleen consistent with abscesses. 2. Large cystic mass in the pelvis with multiple septations s uggestive of primary ovarian malignancy. 3. Small left pleural effusion. The right pleural effusionhas resolved in the interval. Electronically signed by: Parvez Keating M.D. CTA/CTP Rapid Stroke (C) Result Date: 11/04/[address] evidence of stroke. 2. No significant carotid artery stenosis. The noncontrast CT head results were discussed with Dr. Squires by Dr. Green on 11/04/2023 at 10:37 AM The CTA/CTP results were discussed with Dr. Hdez by Dr. Green on 11/04/2023 at 11:00 AM Dictated by: Bi Green MD The radiology attending physician has personally reviewed this study, and had reviewed and/or edited this written report and agrees with it. Electronically signed by: Janel Cole M.D. XR Chest PA Lateral 2 Views Result Date: 11/04/2023 Mild bilateral atelectasis. No pneumonia. No pleural effusion or pneumothorax. The cardiomediastinal silhouette is normal. Dictated by: Eleuterio Bañuelos M.D. The radiology attending physician has personally reviewed this study, and had reviewed and/or edited this written report and agrees with it. Electronically signed by: Parvez Keating M.D. OTHER STUDIES ASSESSMENT & PLAN Farhana Russo is a 63 y.o. female with PMH HTN, DM, recurrent diverticulitis, ulcerative colitis,and adnexal mass presenting with 1 day of altered mental status and confusion. # Acute encephalopathy / speech deficits # Perforated diverticulitis with hepatic and splenic abscesses Presented with picture concerning for acute stroke, however CTH and bMRI without signs of acute stroke. Speech deficits most likely stroke mimic in the setting of acute infection/illness. Imaging findings/Leukocytosis concerning for colonic microperforation and abdominal abscesses. Has been following with CRS and [employer] [facility] outpatient, deferring surgical intervention at this time - CRS following, ok for CLD - IV Zosyn, CRS recommends cef/flagyl or broader - F/u BCx - IR consulted, notes too small abscess to drain - PPI 40mg daily # Anemia Folate, B12, low with iron studies consistent with anemia of chronic disease. Suspect anemia is result of systemic inflammation in conjunction with poor gut absorption due to IBD. - Iron studies: AoCD - Low B12, folate; consider alternate supplementation route - T&S - Obtain consent # Malnutrition Suspect secondary to IBD and possible underlying malignancy. - Calorie counts - Electrolyte checks - RD consult # Hyponatremia Possible contributor to AMS. Most likely in setting of poor oral intake. - mIVF - CTM daily BMPs # Adnexal mass Follows with [facility]yhydrogen welder onc but no formal diagnosis of cancer. Need to address colitis/diverticulitis prior to surgery. Could be contributing to weight loss # UC - Home mesalamine - Consider GI c/s - ESR, CRP checked PT/OT: consulted DVT prophylaxis: Lovenox Diet: Adult Diet Clear Liquid Code Status: Prior Guerita Sena MD, MPH PGY1 Resident Cosigned by Candy Peterson MD at 11/06/2023 1:00 PM CDT Associated attestation - Candy Peterson MD - 11/06/2023 1:00 PM CDT Attending Documentation I have seen and examined the patient on 11/06/23. I agree with the findings and plan of care as documented in the resident's/fellow's note. Supplementary Attestation Today, I am treating the patient for diverticulitis which is in severe exacerbation, progression, or experiencing treatment side effects as evidenced by perforation with hepatic/splenic abscesses, acute encephalopathy, as described in the note. Reviewed records from the following unique sources (external institutions or providers from different services): gynecology/oncology, colorectal surgery, and GI notes from September admission. Independently interpreted CT A/P which shows multiple hepatic & splenic abscesses, colonic stranding. Discussed management of perforated diverticulitis with colorectal surgery and GI. Candy Peterson MD documented in this encounter Consult Notes * David Chavez MD - 11/04/2023 7:47 PM CDTAssociated Order(s): IP CONSULT TO GENERAL SURGERY [facility] Colorectal Surgery Consult Reason for Consult: No data found Requesting Provider: Pilo Davis MD Patient Name: Farhana Russo : 1960 Date of Consult: 11/04/23 Subjective Patient is a 63 y.o. female with chief complaint of No Principal Problem: There is no principal problem currently on the Problem List. Please update the Problem List and refresh. HPI: 63 y.o. female with history of ulcerative colitis (managed with mesalamine), DM2, and HTN who presents to the ED for evaluation of possible stroke, and a sepsis work up. Stroke was ruled out by head Ct and brain MRI, her lab work was relevant for a WBC [address] On [address] scan showed a known adnexal cystic mass, persistent diverticulitis of the sigmoid/descending colon with contained perforation and no fluid collection and multiple liver and spleen abscesses. On exam she is HDS, GCS 15, complains of feeling weak, poor appetite, persistent rectal discharge (has been going on for more than a year related to her UC), diarrhea (managed with imodium) and earlysatiety. Denies nausea/vomiting, fevers, chills, constipation, and BRBPR recently. Past Medical History: Diagnosis Date Diabetes mellitus (HCC) Hypertension Past Surgical History: Procedure Laterality Date CHOLECYSTECTOMY 08/2023 TUBAL LIGATION (Not in a hospital admission) Allergies Allergen Reactions Azithromycin Rash Social History Tobacco Use Smoking status: Never Smokeless tobacco: Not on file Substance and Sexual Activity Drug use: Never Sexual activity: Not on file Alcohol Use: Not At Risk (10/27/2023) AUDIT-C Frequency of Alcohol Consumption: Never Average Number of Drinks: Patient does not drink Frequency of Binge Drinking: Never No family history on file. Review of Systems: As noted in HPI Constitutional: No fever, no chills, no unintended weight loss Neurological: No headaches, no dizziness, no vision changes Cardiovascular: No chest pain, no palpitations Respiratory: No shortness of breath, no coughing Psychiatric: No mood changes, no depression Lymphatic: No swollen lymph nodes Hematology: No easy bruising/bleeding Integument: No itching, no non-healing sores Oral: No mouth sores Musculoskeletal: No joint stiffness Gastrointestinal: No nausea, no vomiting, no diarrhea, no abdominal pain, no constipation Genitourinary: No hematuria Vitals: Arrival Vitals [11/04/23 0749] Temp 37.1 ??C (98.7 ??F) Pulse 120 Resp 18 BP 130/74 SpO2 96 % Temp src Heart Rate Source Patient Position BP Location FiO2 (%) Most Recent : Vitals: 11/04/231929 BP: 137/67 Pulse: 97 Resp: Temp: SpO2: 98% Objective Physical exam: General: Well developed, mal nourished Psych: alert and calm HEENT: normocephalic/atraumatic, anicteric Pulm: Clear to ausultation bilaterally. No wheezes/rales/rhonchi Cardiac: Regular rate and rhythm without murmur. GI: abd distended, slightly tender on LLQ and suprapubic area, palpable suprapubic mass, no hepatomegaly. SHANITA normal rectal tone, streaks of blood on finger mixed with liquid feces. Neuro: ambulatory, non-focal Skin: warm and dry Musculoskeletal: no deformities Lab/Radiology/Diagnostic Review: Recent Labs Lab Units 11/04/23 0756 WBC K/cumm 23.5* HEMOGLOBIN g/dL 7.6* HEMATOCRIT % 24.2* PLATELETS K/cumm 475* Recent Labs Lab Units 11/04/23 0756 11/04/23 0746 SODIUM mmol/L 126* -- CHLORIDE mmol/L 92* -- CO2 mmol/L 22 -- BUN SERUM mg/dL 16 -- CREATININE mg/dL 0.74 -- GLUCOSE mg/dL 176 -- POC GLUCOSE MONITOR mg/dL -- 203* CALCIUM mg/dL 8.8 -- Laboratory review: Lab results in the last 24 hours: Recent Results (from the past 24 hour(s)) Urinalysis reflex to microscopic and culture Urine Collection Time: 11/04/23 11:08 AM Specimen: Urine Result Value Ref Range Color, ur Straw Yellow Clarity, ur Clear Clear Specific gravity, ur 1.019 1.003 - 1.030 pH, urine 6.0 Protein, ur ql 1+ (A) Negative Glucose, ur ql Negative Negative Ketones, ur Negative Negative Bilirubin, ur Negative Negative Blood, ur 1+ (A) Negative Urobilinogen, ur <2.0 <2.0 mg/dL Nitrite, ur Negative Negative Leukocyte esterase, ur 2+ (A) Negative UA reflex comment Reflex to microscopic UA will be performed. aPTT Collection Time: 11/04/23 11:08 AM Result Value Ref Range aPTT 23 (L) 28 - 38 sec Troponin I high-sensitivity series (baseline, 2hr, 4hr, 6hr) Collection Time: 11/04/23 11:08 AM Result Value Ref Range Trop I hs 8 <=17 ng/L Urinalysis, microscopic only Collection Time: 11/04/23 11:08 AM Result Value Ref Range WBC, ur 0-5 0 - 5 /HPF RBC, ur 3-5 (A) 0 - 2 /HPF Epithelial cells, squamous, ur 1-5 0 - 5 /HPF Mucous, ur Present (A) Culture Reflex Comment Reflex conditions for urine culture (WBC >10) not met. Respiratory pathogen panel Nasopharyngeal Collection Time: 11/04/23 12:19 PM Specimen: Nasopharyngeal Result Value Ref Range [...] M. pneumoniae DNA Not Detected Not Detected Troponin I high-sensitivity 4-hour Collection Time: 11/04/23 2:49 PM Result Value Ref Range Trop I hs 8 <=17 ng/L Trop I hs delta 0 ng/L Trop I hs interp Insignificant Blood culture Blood Collection Time: 11/04/23 2:49 PM Specimen: Blood Result Value Ref Range Report Preliminary Report: No growth to date. Blood culture Blood Collection Time: 11/04/23 2:49 PM Specimen: Blood Result Value Ref Range Report Preliminary Report: No growth to date. Sepsis Lactate w/ Reflex Collection Time: 11/04/23 2:49 PM Result Value Ref Range Sepsis Lactate 0.9 0.7 - 2.0 mmol/L MRI Brain WO Contrast Narrative: EXAMINATION: Magnetic resonance imaging (MRI) of the brain and brainstem without contrast HISTORY: 63 years-old Female with Neuro deficit, acute, stroke suspected. TECHNIQUE: Multiplanar multi-weighted MRI of the brain and brainstem was performed without intravenous contrast using the general brain protocol. COMPARISON: CT head 11/04/2023. FINDINGS: The scalp and calvarium are normal. The superior sagittal sinus demonstrates normal venous flow. The corpus callosum is normal in shape and signal intensity. The posterior fossa is unremarkable. The pituitary and sella are normal. The brainstem and craniocervical junction are unremarkable. Diffusion weighted images reveal no hyperintensities to suggest acute cerebral infarction. The susceptibility weighted sequences reveal no evidence of acute or chronic hemorrhage. The ventricles are normal in size and position without evidence of hydrocephalus. The paranasal sinuses are normal. The visualized portions of the mastoids are unremarkable. The orbits appear normal. Normal flow voids are demonstrated in the carotid arteries and basilar artery. Impression: No acute intracranial abnormality. Dictated by: Fan Arias M.D. The radiology attending physician has personally reviewed this study, and had reviewed and/or edited this written report and agrees with it. Electronically signed by: Deangelo Mcmahon MD CT Abdomen Pelvis W Contrast Narrative: EXAMINATION: Computed tomography of the abdomen/pelvis with intravenous contrast HISTORY: Found down TECHNIQUE: Transaxial computed tomographic images of the abdomen/pelvis were obtained with intravenous contrast according to the standard protocol after the uneventful administration of 100 mL Opti-Ray 350 intravenous contrast. COMPARISON: 10/23/2023 FINDINGS: Small left pleural effusion with resolution of the right effusion. There is bibasilar atelectasis In the interval there has been development of multiple hypoattenuating liver lesions which demonstrate peripheral. In the dome of the liver there is a 1.6 cm hypoattenuating lesion on image 24. In hepatic segment 2 on image 44 there is a 1.7 cm hypoattenuating lesion. There are multiple other scattered hypoattenuating liver lesion. The portal vein is patent. The gallbladder has been surgically removed. There is no biliary dilatation. Normal appearance of the pancreas. There are multiple new hypodense lesions seen throughout the spleen which demonstrate some peripheral enhancement. This can be seen on image 51 as well as image 63. There is adjacent soft tissue stranding. Both adrenal glands are normal. There is no hydronephrosis involving either kidney. There is retained contrast material within the kidneys. The bladder is filled with contrast from prior contrast enhanced CT examination. Redemonstrated is a large anomaly cystic mass with associated septations arising from the right adnexa. Uterus itself is normal appearing. The left adnexa appears normal. There are findings of perforated diverticulitis of the descending/sigmoid colon with a contained microperforation. The findings are similar when compared to the prior examination. This can be seen on image 134. There is associated soft tissue stranding within the mesentery Remainder of the bowel is normal appearing. There are scattered subcentimeter reactive mesenteric and retroperitoneal lymph nodes. Bone windows show no suspicious lytic or blastic lesions. Impression: 1. Findings of perforated diverticulitis of the descending/sigmoid colon with a contained perforation. There has been interval development of numerous hypoattenuating lesions seen throughout the liver and spleen consistent with abscesses. 2. 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 3. Small left pleural effusion. The right pleural effusion has resolved in the interval. Electronically signed by: Parvez Keating M.D. CTA/CTP Rapid Stroke (C) Narrative: EXAMINATION: 1. Computed tomography angiography (CTA) of the head without and with contrast 2. Computed tomography angiography (CTA) of the neck with contrast 3. CT perfusion imaging of the head with contrast HISTORY: Aphasia and right arm weakness TECHNIQUE: CT of the head was performed with images acquired from skull base to vertex without intravenous contrast. Computed tomographic angiography was then obtained from the aortic arch to the vertex following the uneventful administration of intravenous contrast. 3D images were generated on a dedicated workstation. CT perfusion of the brain was performed with intravenous contrast using a separate data acquisition. The data was transmitted to a separate workstation for processing by RAPID software ([employer]) to produce automated calculations of the estimated cerebral blood flow and Tmax. Contrast information: 110 mL Optiray-350 COMPARISON: CT dated 09/24/2023 FINDINGS: HEAD CT FINDINGS: There is no acute intracranial hemorrhage. There is no noncontrast evidence of acute stroke. There is no vascular hyperdensity of the M1 segments or basilar artery. Scattered ill-defined hypodensities in the periventricular and subcortical white matter are nonspecific, likely on the basis of chronic small vessel ischemic change. There is parenchymal volume loss. There are atherosclerotic calcifications of the intracranial vessels. There are no lacunar infarcts. Cerebral volume is typical for age. Ventricles are of normal size and morphology. There is no mass effect or midline shift. ANGIOGRAPHIC FINDINGS: The visualized aortic arch appears normal with normal configuration of the great vessels. There is no significant stenosis of the origins of the great vessels. There is no geographic area of vascular paucity in the brain. Left anterior circulation: L CCA: no occlusion or significant stenosis L carotid bifurcation: Mild calcified atherosclerosis without significant narrowing, no occlusion or significant stenosis L ICA proximal: no occlusion or significant stenosis, tortuous distal left extracranial ICA without significant narrowing L ICA distal: Mild calcified atherosclerosis without significant narrowing, no occlusion or significant stenosis L ICA terminus: no occlusion or significant stenosis L M1: no occlusion or significant stenosis L M2 branches: no occlusion or significant stenosis L A2: no occlusion or significant stenosis Right anterior circulation: R CCA: no occlusion or significant stenosis R carotid bifurcation: Mild calcified atherosclerosis without significant narrowing, no occlusion or significant stenosis R ICA proximal: no occlusion or significant stenosis R ICA distal: Mild calcified atherosclerosis without significant narrowing, no occlusion or significant stenosis R ICA terminus: no occlusion or significant stenosis R M1: no occlusion or significant stenosis R M2 branches: no occlusion or significant stenosis R A2: no occlusion or significant stenosis Posterior circulation: L Vertebral Artery: no occlusion or significant stenosis, dominant R Vertebral Artery: Mild atherosclerotic narrowing at the origin and in the V4 segment, no occlusion or significant stenosis Basilar Artery: no occlusion or significant stenosis L [employer] WORKER: no occlusion or significant stenosis R GR[employer] MAINTENANCE WORKER: no occlusion or significant stenosis No cerebral aneurysm is seen. There is no evidence for an arteriovenous malformation. There is no suspicious cervical lymphadenopathy. Multinodular right thyroid goiter. Moderate multilevel cervical spondylosis. Limited views of the lung apices are normal. PERFUSION FINDINGS: Estimated ischemic core volume (rCBF < 0.3): 0 mL Estimated hypoperfusion volume (Tmax > 6 sec): 0 mL Impression: 1. No CT evidence of stroke. 2. No significant carotid artery stenosis. The noncontrast CT head results were discussed with Dr. Squires by Dr. Green on 11/04/2023 at 10:37 AM The CTA/CTP results were discussed with Dr. Hdez by Dr. Green on 11/04/2023 at 11:00 AM Dictated by: Bi Green MD The radiology attending physician has personally reviewed this study, and had reviewed and/or edited this written report and agrees with it. Electronically signed by: Janel Cole M.D. ECG 12 lead Pilo Davis MD 11/04/2023 12:24 PM ECG 12 lead Date/Time: 11/04/2023 12:24 PM Performed by: Pilo Davis MD Authorized by: Pilo Davis MD Rate: ECG rate: 108 ECG rate assessment: tachycardic Rhythm: Rhythm: sinus tachycardia Ectopy: Ectopy: none QRS: QRS axis: Normal QRS intervals: Normal Conduction: Conduction: normal ST segments: ST segments: Non-specific T waves: T waves: inverted Previous ECG: Previous ECG: Unavailable Interpretation: Interpretation: abnormal Recommended Follow-up: Recommended follow up: further workup in the ED XR Chest PA Lateral 2 Views Narrative: EXAMINATION: 2 view chest radiograph Impression: Mild bilateral atelectasis. No pneumonia. No pleural effusion or pneumothorax. The cardiomediastinal silhouette is normal. Dictated by: Eleuterio Bañuelos M.D. The radiology attending physician has personally reviewed this study, and had reviewed and/or edited this written report and agrees with it. Electronically signed by: Parvez Keating M.D. Assessment /Plan Active Problems: No Active Problems: There are no active problems currently on the Problem List. Please update the Problem List and refresh. 63 y.o. female with history of ulcerative colitis (managed with mesalamine), DM2, and HTN who presents to the ED for evaluation of possible stroke, and a sepsis work up. Stroke was ruled out by head Ct and brain MRI, her lab work was relevant for a WBC [address] On [address] scan showed a known adnexal cystic mass, persistent diverticulitis of the sigmoid/descending colon with contained perforation and no fluid collection and multiple liver and spleen abscesses. Patient is currently HDS, we are being consulted for management of her diverticulitis. Recommendations: Admit to medicine floor for management of multiple medical problems. Antibiotics, recommend ceftriaxone/flagyl for diverticulitis. Might need broader spectrum in setting of possible sepsis. mIVF Diet: CLD David Aaron MD Cosigned by Yo Ferreira MD at 11/07/2023 10:38 AM CDT * Julio Cesar Portillo MD - 11/04/2023 10:58 AM CDT Hyperacute Stroke Team - [facility] Consult Note Initial information: Narrative: Ms. Russo is a 63 y.o. female who presents as an acute tPA page. Requesting provider: Dr. Davis Reason for consult: Acute stroke suspected Page time (24h format): 11/04/2023 1019 Last Known Normal: 11/04/2023 0230 Symptom discovery: 11/04/2023 0530 Chief complaint: Aphasia HPI: Farhana Russo is a 63yo F with a hx of T2DM and HTN who was found by to have persistent speech deficit and confusion concerning for aphasia that was noted at 0530, LKN was 0230. Patient is not able to provide own history, collateral supplied by , additional information from chart review. At baseline, independent with ADLs and IADLs, no neurologic deficits at baseline. She was well appearing all yesterday and noted by to be normal at 0230 when she got up to use the bathroom, she returned to bed. She was then found in the bathroom by at 0530 and noted to have limited intelligible speech production and appeared confused and did not respond appropriately to questions. She was alert and interactive but had persistent speech impairment. No appreciable facial droop or new weakness, no suspicion for sensory deficit or vision impairment, she was stillable to ambulate. He was concerned for stroke and drove her to [facility] ED. No report of fall or head trauma. On arrival, BP 130/74, BG 203. Initial NIHSS 5. CTH obtained that showed no acute hemorrhage or large territory infarct. CTA did not show any LVO. She was a NO GO for TNK given OOW and a NO GO for MTgiven no LVO. Stroke risk factors: Diabetes and Hypertension Notable home meds (i.e., anticoagulation): Not on any AC or AP therapy Past medical history, past surgical history, current medications, allergies, family history and social history were reviewed, and are noted at the end of this note. Vitals: 11/04/23 0749 BP: 130/74 Pulse: 120 Resp: 18 Temp: 37.1 ??C (98.7 ??F) SpO2: 96% NIH Stroke Scale Interval: Baseline Level of Consciousness (1a.): Alert, keenly responsive LOC Questions (1b.): Answers neither question correctly LOC Commands (1c.): Performs one task correctly Best Gaze (2.): Normal Visual (3.): No visual loss Facial Palsy (4.): Normal symmetrical movements Motor Arm, Left (5a.): No drift Motor Arm, Right (5b.): No drift Motor Leg, Left (6a.): No drift Motor Leg, Right (6b.): No drift Limb Ataxia (7.): Absent Sensory (8.): Normal, no sensory loss Best Language (9.): Severe aphasia Dysarthria (10.): Normal Extinction and Inattention (11.) (Formerly Neglect): No abnormality Total: 5 (11/04/23 1108) Brown labs (FSBG, INR, platelets, Xa): Lab Results Lab Value Date/Time GLUCOSE 176 11/04/2023 0756 GLUCOSE 203 (H) 11/04/2023 0746 INR 1.45 (H) 10/02/2023 1637 HCT findings: NAIA Thrombolytic decision: TNK decision: NO GO. Rationale: Last known well greater than 4.5 hours ago TNK decision time (24 hour format): 1038 TNK bolus time (24 hour format): N/A, thrombolytics not given BP prior to TNK bolus: N/A, thrombolytics not given Reason for TNK delay (>30 mins [id number], if applicable): N/A, patient did not receive thrombolytics Thrombectomy decision: LVO on CTA?: No CTA read time/fellow: time: 1100, fellow: Dr. Green CTP: Core volume: 0 mL Penumbra volume: 0 mL Mismatch ratio: 0 Baseline functional status: MRS 0: The patient has no symptoms. Intervention: NO-GO: Rationale: CTA performed with no LVO Neuro-IR contact time: N/A, Patient NO-GO for intervention Hyperacute MRI Indication: Not performed Findings: N/A, not performed Wake-up stroke: Time of symptom discovery (24h format): N/A, patient not a candidate for WAKE-UP protocol DWI-FLAIR mismatch: N/A, patient not a candidate for protocol MRI read time/fellow: N/A, patient was not a candidate for protocol Physical Examination: BP 130/74 Pulse 120 Temp 37.1 ??C (98.7 ??F) Resp 18 Ht 162.6 cm (5' 4 ) Wt 63 kg (139 lb) SpO2 96% BMI 23.86 kg/m?? GEN: NAD HEENT: NC/AT, MMM CV: Regular rate and rhythm PULM: No increased work of breathing ABD: Soft, nontender, nondistended EXT: Warm and well-perfused SKIN: Warm and dry Neurologic Examination: Mental status: Awake, alert, no able to indicate orientation to name, place, or date. Does not follow commands consistently, can follow 1 simple command with mimic Speech: Fluent aphasia with frequent errors and impaired comprehension Cranial Nerves: PERRL, EOMI, activates face symmetrically, tongue midline, no appreciable dysarthria Motor: Able to move all extremities equally against resistance but struggles to follow commands formore formal confrontation testing. Sensory: Responds to light touch in all extremities equally Coordination Gait: Does not follow commands for FNF or heel-alberto but displays fluid precise voluntary movements. Assessment & Plan: Ms. Russo is a 63 y.o. year old female with a hx of T2DM and HTN who was found by to have persistent speech deficit and confusion concerning for aphasia that was noted at 0530, LKN was 0230. No LVO on CTA or perfusion deficit on CTP. NO GOx2. High suspicion for acute stroke with persistent aphasia and would recommend admission to inpatient stroke service for further evaluation and management of stroke risk factors. Update: patient re-evaluated and has some improvement in language but aphasia still present. Found to have elevated WBC and perforated diverticulum which could raise suspicion for stroke mimic - TME.Will get brain MRI to confirm acute stroke Disposition: Recommend admission to inpatient stroke service - Obtain brain MRI wo contrast: if acute stroke is present then would recommend the following: - Labs: obtain A1c, LDL - BP goal for first 24hr following onset: SBP <220, DBP <110 - Start ASA 325mg - Start atorvastatin 80mg - telemetry, consider TTE - SMART Case discussed with [facility] attending: Dr. Kaden De Leon The [facility] team will sign off due to patient admission to the stroke/NNICU service. For acute neurologic change and repeat stroke assessment, please activate the acute stroke pager at [phone]. For a non-emergent questions please call the inpatient stroke phone at [phone]. ADDENDUM: Brain MRI showed no acute stroke. Aphasia likely present in setting of infection. Stroke mimic. Patient does not need stroke workup or to be started on ASA or atorvastatin. Plan: - no further neurological care needed - appreciate medicine management of her perforated diverticulitis Neurology consults will sign off at this time. Please call us if any questions or concerns and specify this was staffed with consult team B. Julio Cesar Portillo MD PGY3 Neurology Resident Bella Squires MD 11/04/2023, 11:09 AM Subjective Past Medical History: Past Medical History: Diagnosis Date Diabetes mellitus (HCC) Hypertension Past Surgical History: Past Surgical History: Procedure Laterality Date CHOLECYSTECTOMY 08/2023 TUBAL LIGATION Medications: No current facility-administered medications on file prior to encounter. Current Outpatient Medications on File Prior to Encounter Medication Sig Dispense Refill [] acetaminophen 500 mg capsule Take 2 capsules (1,000 mg total) by mouth every 6 (six) hours as needed for pain 30 tablet 0 amoxicillin-clavulanate (AUGMENTIN) 875-125 mg per tablet Take 1 tablet (875 mg of amoxicillin total) by mouth 2 (two) times a day 60 tablet 3 ferrous sulfate 325 mg (65 mg of elemental iron) tablet Take 1 tablet (325 mg total) by mouth dailywith breakfast 30 tablet 11 losartan (COZAAR) 25 mg tablet Take 1 tablet (25 mg total) by mouth daily mesalamine (CANASA) 1,000 mg suppository Insert 1 suppository (1,000 mg total) into the rectum nightly 30 suppository 0 metFORMIN (GLUCOPHAGE) 500 mg tablet Take 1 tablet (500 mg total) by mouth daily with breakfast [] metroNIDAZOLE (FLAGYL) 500 mg tablet Take 1 tablet (500 mg total) by mouth 2 (two) times a day [address] (PROTONIX) 40 mg EC tablet Take 1 tablet (40 mg total) by mouth daily triamcinolone (KENALOG) 0.1 % paste Allergies: Allergies Allergen Reactions Azithromycin Rash Family History: No family history on file. Social History: Social History Tobacco Use Smoking status: Never Smokeless tobacco: Not on file Substance and Sexual Activity Drug use: Never Sexual activity: Not on file Alcohol Use: Not At Risk (10/27/2023) AUDIT-C Frequency of Alcohol Consumption: Never Average Number of Drinks: Patient does not drink Frequency of Binge Drinking: Never Review of Systems: A complete review of systems was performed including symptoms pertaining to the following systems: constitutional, cardiovascular, respiratory, gastrointestinal, genitourinary, musculoskeletal, neurological, psychiatric, endocrine, immunologic, integumentary, hematological, eyes, and ears, nose, [place], and throat. All systems were negative except as noted in the History of Presenting Illness (HPI). Cosigned by Kaden De Leon MD at 11/07/2023 4:37 PM CDT Associated attestation - Kaden De Leon MD - 11/07/2023 4:37 PM CDT I have seen and examined the patient on 11/04/2023. I agree with the findings and plan of care as documented in the resident's note. Kaden De Leon MD [facility] Attending documented in this encounter Nursing Notes * Kaylah Portillo, RN - 11/06/2023 2:43 PM CDT Patient discharge education complete including medication reconciliation, S&S to monitor, and follow up appointments. VSS per pt baseline. PIV removed per policy. Pt belongings returned. Pt leaving via at bedside. Medications sent to outside pharmacy. No further questions at this time. documented in this encounter ED Notes * Toshia Meehan RN - 11/05/2023 12:48 AM CDT Bed: 4- Expected date: 11/05/23 Expected time: 12:17 AM Means of arrival: Comments: 04-12- Toshia Chavez RN 11/05/23 0048 * Pilo Davis MD - 11/04/2023 10:54 AM CDT HPI Chief Complaint Patient presents with Fall Altered Mental Status Fever This is a 63-year-old female history of adnexal mass history of diabetes no previous strokes not onanticoagulation last known well at approximately 2:30 a.m. presents emergency department via private vehicle after being found down this morning at 5:30 a.m. in the morning with reports of expressiveaphasia at that time. No other focal neurological complaints otherwise recently well no nausea vomiting diarrhea no reported headaches although history is limited to her due to the expressiveaphasia upon evaluation Patient History: Patient Active Problem List Diagnosis Date Noted Expressive aphasia 11/04/2023 History of chronic ulcerative colitis 10/27/2023 Adnexal mass 10/23/2023 Hypertension 10/20/2023 Type II diabetes mellitus (HCC) 10/20/2023 Diverticulitis of intestine 10/20/2023 Moderate protein-calorie malnutrition (CMS/HCC) (HCC) 10/03/2023 Past Medical History: Diagnosis Date Diabetes mellitus (HCC) Hypertension Past Surgical History: Procedure Laterality Date CHOLECYSTECTOMY 08/2023 TUBAL LIGATION No family history on file. Social History Tobacco Use Smoking status: Never Smokeless tobacco: Not on file Substance and Sexual Activity Alcohol use: Not on file Drug use: Never Sexual activity: Not on file Social History Social History Narrative Not on file Review of Systems Review of Systems Unable to perform ROS: Mental status change (expressive aphasia profound) Physical Exam ED Triage Vitals Temp Pulse Resp BP SpO2 11/04/23 0749 11/04/23 0749 11/04/23 0749 11/04/23 0749 11/04/23 0749 37.1 ??C (98.7 ??F) 120 18 130/74 96 % Temp src Heart Rate Source Patient Position BP Location FiO2 (%) 11/05/23 1530 11/05/23 1530 11/05/23 1530 11/05/23 1530 -- Oral Pulse Oximetry Sitting Right arm Height Height Method Weight Weight Method 11/04/23 0749 11/04/23 0749 11/04/23 0749 11/05/23 1530 1.626 m (5' 4 ) Stated 63 kg (139 lb) Standing scale Physical Exam Vitals and nursing note reviewed. Constitutional: General: She is not in acute distress. Appearance: Normal appearance. She is well-developed. She is not ill-appearing. HENT: Head: Normocephalic and atraumatic. Nose: Nose normal. Mouth/Throat: Pharynx: No oropharyngeal exudate. Eyes: General: No scleral icterus. Right eye: No discharge. Left eye: No discharge. Conjunctiva/sclera: Conjunctivae normal. Pupils: Pupils are equal, round, and reactive to light. Neck: Vascular: No JVD. Trachea: No tracheal deviation. Cardiovascular: Rate and Rhythm: Normal rate and regular rhythm. Heart sounds: Normal heart sounds. No murmur heard. No friction rub. No gallop. Pulmonary: Effort: Pulmonary effort is normal. No respiratory distress. Breath sounds: Normal breath sounds. No stridor. No wheezing or rales. Chest: Chest wall: No tenderness. Abdominal: General: Bowel sounds are normal. There is no distension. Palpations: Abdomen is soft. Tenderness: There is no abdominal tenderness. There is no guarding. Musculoskeletal: General: No tenderness, deformity or signs of injury. Normal range of motion. Cervical back: Normal range of motion and neck supple. Comments: Bilateral lower extremity 1+ pitting edema Skin: General: Skin is warm and dry. Capillary Refill: Capillary refill takes less than 2 seconds. Coloration: Skin is not pale. Findings: No rash. Neurological: General: No focal deficit present. Mental Status: She is alert and oriented to person, place, and time. Mental status is at baseline. Cranial Nerves: No cranial nerve deficit. Sensory: No sensory deficit. Motor: No weakness. Coordination: Coordination normal. Comments: NIH score of 5 profound expressive aphasia remaining NIH markers documented through the haste team Psychiatric: Mood and Affect: Mood normal. Behavior: Behavior normal. Thought Content: Thought content normal. Judgment: Judgment normal. MDM NIH Score Interval: Baseline Level of Consciousness (1a.): 0 LOC Questions (1b.): 2 LOC Commands (1c.): 1 Best Gaze (2.): 0 Visual (3.): 0 Facial Palsy (4.): 0 Motor Arm, Left (5a.): 0 Motor Arm, Right (5b.): 0 Motor Leg, Left (6a.): 0 Motor Leg, Right (6b.): 0 Limb Ataxia (7.): 0 Sensory (8.): 0 Best Language (9.): 2 Dysarthria (10.): 0 Extinction and Inattention (11.) (Formerly Neglect): 0 Total: 5 Medical Decision Making This is a 63-year-old female who presents emergency department found down with expressive aphasia the neurological deficits are rather focal to speech abnormalities decreasing the likelihood of a stroke mimicker such as a global infection or metabolic derangement although these remain on the differential low suspicion for large vessel occlusion patient is outside the window for TNK secondary to time and the patient is not a wake-up stroke as the patient arrived in the emergency department for management greater than 4-1/2 hours after the finding this morning. Due to the profound deficit for this patient however reviewing with the stroke team possible qualifications for the Sister trial based upon any perfusion deficits recognized on imaging Amount and/or Complexity of Data Reviewed Labs: ordered. Decision-making details documented in ED Course. Radiology: ordered. Decision-making details documented in ED Course. ECG/medicine tests: ordered. Risk Prescription drug management. Decision regarding hospitalization. ED Course as of 11/05/23 2301 Time: 11/03 1107 Value: WBC(!): 23.5 Comment: No specific clear source although history limited by expressive aphasia. Patient with abdominal tumor as a possible source By: Pilo Davis MD Time: 11/03 1130 Comment: Additional history from patient indicates that she is still on Augmentin her expressive aphasia remains but seems to be improving differential also includes possible unwitnessed seizure withfocal deficits associated with postictal phase this could also be related to infectious etiology and anemia contributing. This broad differential and refocus associated with no specific perfusion deficit on the CT perfusion study. Patient's spouse mentions that the patient has had a progressive cough for 2 days possible infectious source, consider also viral source. By: Pilo Davis MD Time: 11/03 1208 Comment: Per neuro, possible stroke mimic iso UTI. Will order MRI Brain w/o to evaluate stroke further. By: Seble Melo MD Time: 11/03 1224 Value: Trop I hs: 8 Comment: Noting inverted t waves on EKG no old comparison, no CP, continue to trend trop By: Pilo Davis MD Time: 11/03 1431 Comment: IMPRESSION: 1. Findings of perforated diverticulitis of the descending/sigmoid colon with a contained perforation. There has been interval development of numerous hypoattenuating lesions seen throughout the liver and spleen consistent with abscesses. 2. 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 3. Small left pleural effusion. The right pleural effusion has resolved in the interval. By: Seble Melo MD Time: 11/03 1445 Comment: Noting acute perforated diverticulitis pending surgery consultation and dispo dependent upon coordination between surgery and neuro By: Pilo Davis MD Time: 11/03 1902 Value: MRI Brain WO Contrast Comment: IMPRESSION: No acute intracranial abnormality. By: Amanda Mederos MD Time: 11/03 1905 Comment: Will start zosyn for perforated diverticulitis By: Amanda Mederos MD Time: 11/03 1948 Comment: Surgery has evaluated. Believe diverticulitis is stable, don't feel is source of AMS. Feelovarian mass is likely cause of illness. They will continue to follow as consults. By: Amanda Mederos MD Time: 11/04 2051 Comment: [facility] requests we call oxyhydrogen welder onc and let them know pt is here as she follows with Dr. Rhodes here in case OBGYN wants to admit her. [facility] will accept if OBGYN declines By: Amanda Mederos MD Time: 11/04 2111 Comment: Discussed pt with OBGYN. They will evaluate the pt. By: Amanda Mederos MD Time: 11/04 2139 Comment: OBGYN states that although she has a mass, she does not currently have a known malignancy,so she can be admitted to medicine. Updated MTA. By: Amanda Mederos MD Time: 11/03 2204 Comment: MTA accepted for admission. Ready to move. By: Amanda Mederos MD Time: 11/03 2311 Comment: Attending note: 63 yo F here with expressive aphasia. No go TNK on stroke alert. Containedperforated diverticulitis on imaging. Surgery has seen. Also found to have large ovarian mass, Surveillance Operator aware. Medicine admission. By: Lakeshia Abrams MD Time: 11/04 730 Comment: Taking over care from off-going resident, Dr. Reeves: 63F p/w expressive aphasia now with perforated diverticulitis, UTI. On empiric abx. Will be admitted to medicine. By: Seble Melo MD Time: 11/04 0685 Comment: Recieved signout at shift change from Dr. Abrams. Reviewed presentation, pertinent labs, imaging and additional workup/consultations and anticipated disposition. Admit to medicine, 63F was initially presenting withAMS and expressive aphasia, found to be septic,no CVA, with perforated diverticulitis, on zosyn By: Juan Carlos Ovalle MD Time: 11/05 0757 Comment: Care will be taken over by ED HospitalistCyrus NP By: Seble Melo MD Time: 11/04 08 Comment: Spoke with hospitalist, who will take over care of the patient primarily. ED staff will remain available to assist in patient care while they remain in the emergency department. By: Juan Carlos Ovalle MD Final diagnoses: Expressive aphasia Altered mental status, unspecified altered mental status type LLQ abdominal pain Acute cough Sepsis without septic shock (CMS/HCC) (HCC) Diverticulitis of colon with perforation Pilo Davis MD 11/04/23 1059 Pilo Davis MD 11/05/23 2301 * Annette Mtz RN - 11/04/2023 10:17 AM CDT Bed: ED2-24 Expected date: 11/04/23 Expected time: Means of arrival: Comments: Farhana Russo Kara Brennan, RN 11/04/23 1017 * Timothy Poole RN - 11/04/2023 7:50 AM CDT Spouse states she pt has been increasingly confused over the last couple of days. This morning he woke up to find pt on floor next to chair. No signs of injury. Spouse had to call another to assist pt in getting up back into chair due to generalized weakness. Pt has c/o decreased appetite, cough,fever, dehydration, increased confusion and recent UTI. Pt recently treated with bactrim. Pt speaking in triage though confused and drowsy. documented in this encounter Miscellaneous Notes * Plan of Care - Lisandra Brower - 11/06/2023 2:38 PM CDT Problem: Discharge Planning Goal: Understanding discharge needs will improve Outcome: Progressing Problem: Fall Risk Goal: Ability to state ways to decrease the risk of falls will improve Outcome: Progressing Goal: Will remain free from falls Outcome: Progressing Goal: Will remain free from injury from falls Outcome: Progressing Problem: Neurosensory Goal: Achieves stable or improved neurological status Outcome: Progressing Goal: Absence of seizures Outcome: Progressing Goal: Remains free of injury related to seizures activity Outcome: Progressing Goal: Achieves maximal functionality and self care Outcome: Progressing Goal: Ability to maintain intracranial pressure will improve Outcome: Progressing Problem: Respiratory Goal: Achieves optimal ventilation and oxygenation Outcome: Progressing Goal: Ability to maintain a clear airway will improve Outcome: Progressing Goal: Mechanical Ventilation will be safely managed Outcome: Progressing Problem: Cardiovascular Goal: Maintains optimal cardiac output and hemodynamic stability Outcome: Progressing Goal: Absence of cardiac dysrhythmias or at baseline Outcome: Progressing Goal: Cardiovascular status will improve Outcome: Progressing Problem: Skin/Tissue Integrity Goal: Skin integrity remains intact Outcome: Progressing Goal: Incisions, wounds, or drain sites healing without S/S of infection Outcome: Progressing Goal: Oral mucous membranes remain intact Description: Outcome: Progressing Problem: Musculoskeletal Goal: Return mobility [...] Goal: Maintains adequate nutritional intake Outcome: Progressing Goal: Establish and maintain optimal ostomy function Outcome: Progressing Goal: Will show no signs and symptoms of gastrointestinal bleeding Outcome: Progressing Problem: Genitourinary Goal: Absence of urinary retention Outcome: Progressing Goal: Urinary catheter remains patent Outcome: Progressing Problem: Infection Goal: Absence of infection during hospitalization Outcome: Progressing Goal: Absence of fever/infection during anticipated neutropenic period Outcome: Progressing Problem: Metabolic/Fluid and Electrolytes Goal: Electrolytes maintained within normal limits Outcome: Progressing Goal: Hemodynamic stability and optimal renal function maintained Outcome: Progressing Goal: Glucose maintained within prescribed range Outcome: Progressing Problem: Hematologic Goal: Maintains hematologic stability Outcome: Progressing Goals: Clinical Goals for the Shift: VS WNL, No falls/injuries, pain control, compliant with care Summary: -VS WNL - No falls or injuries noted - No complaints of pain noted - Compliant with nursing care * Plan of Care - Shelby Askew RN - 11/06/2023 1:12 PM CDT 11/06/23 1311 Discharge Summary Discharge Disposition Private residence Recommended Discharge Level of Care Private residence Actual Discharge Level of Care Private residence Does Actual Level of Care Match Care Team Recommendation? Yes Post Acute Care Plan Home Care Services N/A OP Services N/A DME N/A Post Acute Care Facility N/A Discharge Additional Assistance Does the patient need discharge transport arranged? No (family) Per medical team, patient is medically stable for discharge at this time. Follow up appointment hasbeen scheduled for Nov 09 at 2:45 pm. Patient is agreeable with the plan. If any further dischargeneeds arise, please contact the covering cyanide case hardener. * Medical Student - Eileen Preston - 11/06/2023 12:07 PM CDT Daily Progress Note Division of Hospital Medicine Name: Farhana Russo Today: November 06, 2023 : 1960 Age: 63 y.o. female Admit: 11/04/2023 Bed: [id number] SUBJECTIVE Chief complaint: Chief Complaint Patient presents with Fall Altered Mental Status Fever Interval History: Ms. Russo is a 63 year old female with history of HTN, DM, recurrent diverticulitis, IBD, and anadnexal mass presenting with 1 day of confusion and altered mental status. She was worked up for a stroke in the ED, work-up was negative. The most likely cause of her now resolved AMS may relate to perforated diverticulitis with hepatic and splenic abscesses found on CT in the ED. -Yesterday, she was admitted to the floor and received treatment with IV antibiotics. She had multiple loose BM and good urine output per nursing note yesterday. Her Hgb was 6.9 yesterday, and a unitof blood was started overnight at 2:30 am. -This morning, she is doing well. She is back to baseline per patient and in terms of aphasia, and she is speaking and swallowing normally without trouble. No focal neurologic deficits were noted. She is having no pain, including no abdominal pain. She is not having nausea or vomiting, no diarrhea. She has diarrhea with fluids sometimes she says. She also endorses a poor appetite. -She was seen by colorectal surgery this morning who recommended to advance her diet from clear liquid to regular as tolerated. Also recommended to transition to oral antibiotics at discharge, with outpatient follow-up with colorectal surgery. -OT saw patient this morning and recommended home with family for discharge. OBJECTIVE Medications: Scheduled: enoxaparin, 40 mg, subcutaneous, Daily-2100 ferrous sulfate, 65 mg of elemental iron, oral, Daily with breakfast losartan, 25 mg, oral, Daily mesalamine, 1,000 mg, rectal, Nightly pantoprazole DR, 40 mg, oral, Daily piperacillin-tazobactam, 3.375 g, intravenous, Q6H DARIN Infusions: Lactated Ringer's, 75 mL/hr, Last Rate: 75 mL/hr (11/05/23 1057) PRN: acetaminophen bisacodyl EC OR bisacodyL loperamide polyethylene glycol Vitals: 24hr Min/Max: Temp Min: 36.5 ??C (97.7 ??F) Max: 37 ??C (98.6 ??F) Pulse Min: 89 Max: 101 BP Min: 123/49 Max: 133/70 Resp Min: 16 Max: 18 SpO2 Min: 96 % Max: 98 % Most Recent: Vitals: 11/06/23 1104 BP: 129/67 Pulse: 96 Resp: Temp: SpO2: 98% Intake/Output Summary (Last 24 hours) at 11/06/2023 1208 Last data filed at 11/06/2023 0601 Gross per 24 hour Intake 465 ml Output -- Net 465 ml Physical Exam: Constitutional: NAD, well developed, well nourished. Eyes: EOMI, anicteric. HEENT: NCAT. MMM Lungs: Clear to auscultation in anterior lung randall Cardiovascular: RRR, no murmurs GI: Soft, non-tender to palpation, non-distended, bowel sounds positive Skin: No jaundice or pallor Extremities: Normal without edema or cyanosis Neurologic: Alert and oriented, no focal deficits, moves all limbs spontaneously Psychiatric: Normal affect and mood. Lab/Diagnostic Review: Lab Results Component Value Date WBC 12.3 (H) 11/05/2023 HGB 8.1 (L) 11/06/2023 HCT 25.2 (L) 11/06/2023 MCV 81.9 11/05/2023 LABPLAT 434 (H) 11/05/2023 Lab Results Component Value Date GLUCOSE 82 11/05/2023 CALCIUM 8.0 (L) 11/05/2023 SODIUM 132 (L) 11/05/2023 POTASSIUM 3.4 11/05/2023 CO2 24 11/05/2023 CHLORIDE 94 (L) 11/05/2023 BUNSER 12 11/05/2023 CREATININE 0.88 11/05/2023 Imaging Results: MRI Brain WO Contrast Narrative: EXAMINATION: Magnetic resonance imaging (MRI) of the brain and brainstem without contrast HISTORY: 63 years-old Female with Neuro deficit, acute, stroke suspected. TECHNIQUE: Multiplanar multi-weighted MRI of the brain and brainstem was performed without intravenous contrast using the general brain protocol. COMPARISON: CT head 11/04/2023. FINDINGS: The scalp and calvarium are normal. The superior sagittal sinus demonstrates normal venous flow. The corpus callosum is normal in shape and signal intensity. The posterior fossa is unremarkable. The pituitary and sella are normal. The brainstem and craniocervical junction are unremarkable. Diffusion weighted images reveal no hyperintensities to suggest acute cerebral infarction. The susceptibility weighted sequences reveal no evidence of acute or chronic hemorrhage. The ventricles are normal in size and position without evidence of hydrocephalus. The paranasal sinuses are normal. The visualized portions of the mastoids are unremarkable. The orbits appear normal. Normal flow voids are demonstrated in the carotid arteries and basilar artery. Impression: No acute intracranial abnormality. Dictated by: Fan Arias M.D. The radiology attending physician has personally reviewed this study, and had reviewed and/or edited this written report and agrees with it. Electronically signed by: Deangelo Mcmahon MD CT Abdomen Pelvis W Contrast Narrative: EXAMINATION: Computed tomography of the abdomen/pelvis with intravenous contrast HISTORY: Found down TECHNIQUE: Transaxial computed tomographic images of the abdomen/pelvis were obtained with intravenous contrast according to the standard protocol after the uneventful administration of 100 mL Opti-Ray 350 intravenous contrast. COMPARISON: 10/23/2023 FINDINGS: Small left pleural effusion with resolution of the right effusion. There is bibasilar atelectasis In the interval there has been development of multiple hypoattenuating liver lesions which demonstrate peripheral. In the dome of the liver there is a 1.6 cm hypoattenuating lesion on image 24. In hepatic segment 2 on image 44 there is a 1.7 cm hypoattenuating lesion. There are multiple other scattered hypoattenuating liver lesion. The portal vein is patent. The gallbladder has been surgically removed. There is no biliary dilatation. Normal appearance of the pancreas. There are multiple new hypodense lesions seen throughout the spleen which demonstrate some peripheral enhancement. This can be seen on image 51 as well as image 63. There is adjacent soft tissue stranding. Both adrenal glands are normal. There is no hydronephrosis involving either kidney. There is retained contrast material within the kidneys. The bladder is filled with contrast from prior contrast enhanced CT examination. Redemonstrated is a large anomaly cystic mass with associated septations arising from the right adnexa. Uterus itself is normal appearing. The left adnexa appears normal. There are findings of perforated diverticulitis of the descending/sigmoid colon with a contained microperforation. The findings are similar when compared to the prior examination. This can be seen on image 134. There is associated soft tissue stranding within the mesentery Remainder of the bowel is normal appearing. There are scattered subcentimeter reactive mesenteric and retroperitoneal lymph nodes. Bone windows show no suspicious lytic or blastic lesions. Impression: 1. Findings of perforated diverticulitis of the descending/sigmoid colon with a contained perforation. There has been interval development of numerous hypoattenuating lesions seen throughout the liver and spleen consistent with abscesses. 2. 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 3. Small left pleural effusion. The right pleural effusion has resolved in the interval. Electronically signed by: Parvez Keating M.D. CTA/CTP Rapid Stroke (C) Narrative: EXAMINATION: 1. Computed tomography angiography (CTA) of the head without and with contrast 2. Computed tomography angiography (CTA) of the neck with contrast 3. CT perfusion imaging of the head with contrast HISTORY: Aphasia and right arm weakness TECHNIQUE: CT of the head was performed with images acquired from skull base to vertex without intravenous contrast. Computed tomographic angiography was then obtained from the aortic arch to the vertex following the uneventful administration of intravenous contrast. 3D images were generated on a dedicated workstation. CT perfusion of the brain was performed with intravenous contrast using a separate data acquisition. The data was transmitted to a separate workstation for processing by RAPID software ([employer]) to produce automated calculations of the estimated cerebral blood flow and Tmax. Contrast information: 110 mL Optiray-350 COMPARISON: CT dated 09/24/2023 FINDINGS: HEAD CT FINDINGS: There is no acute intracranial hemorrhage. There is no noncontrast evidence of acute stroke. There is no vascular hyperdensity of the M1 segments or basilar artery. Scattered ill-defined hypodensities in the periventricular and subcortical white matter are nonspecific, likely on the basis of chronic small vessel ischemic change. There is parenchymal volume loss. There are atherosclerotic calcifications of the intracranial vessels. There are no lacunar infarcts. Cerebral volume is typical for age. Ventricles are of normal size and morphology. There is no mass effect or midline shift. ANGIOGRAPHIC FINDINGS: The visualized aortic arch appears normal with normal configuration of the great vessels. There is no significant stenosis of the origins of the great vessels. There is no geographic area of vascular paucity in the brain. Left anterior circulation: L CCA: no occlusion or significant stenosis L carotid bifurcation: Mild calcified atherosclerosis without significant narrowing, no occlusion or significant stenosis L ICA proximal: no occlusion or significant stenosis, tortuous distal left extracranial ICA without significant narrowing L ICA distal: Mild calcified atherosclerosis without significant narrowing, no occlusion or significant stenosis L ICA terminus: no occlusion or significant stenosis L M1: no occlusion or significant stenosis L M2 branches: no occlusion or significant stenosis L A2: no occlusion or significant stenosis Right anterior circulation: R CCA: no occlusion or significant stenosis R carotid bifurcation: Mild calcified atherosclerosis without significant narrowing, no occlusion or significant stenosis R ICA proximal: no occlusion or significant stenosis R ICA distal: Mild calcified atherosclerosis without significant narrowing, no occlusion or significant stenosis R ICA terminus: no occlusion or significant stenosis R M1: no occlusion or significant stenosis R M2 branches: no occlusion or significant stenosis R A2: no occlusion or significant stenosis Posterior circulation: L Vertebral Artery: no occlusion or significant stenosis, dominant R Vertebral Artery: Mild atherosclerotic narrowing at the origin and in the V4 segment, no occlusion or significant stenosis Basilar Artery: no occlusion or significant stenosis L GROUNDS MAINTENANCE WORKER: no occlusion or significant stenosis R GROUNDS MAINTENANCE WORKER: no occlusion or significant stenosis No cerebral aneurysm is seen. There is no evidence for an arteriovenous malformation. There is no suspicious cervical lymphadenopathy. Multinodular right thyroid goiter. Moderate multilevel cervical spondylosis. Limited views of the lung apices are normal. PERFUSION FINDINGS: Estimated ischemic core volume (rCBF < 0.3): 0 mL Estimated hypoperfusion volume (Tmax > 6 sec): 0 mL Impression: 1. No CT evidence of stroke. 2. No significant carotid artery stenosis. The noncontrast CT head results were discussed with Dr. Squires by Dr. Green on 11/04/2023 at 10:37 AM The CTA/CTP results were discussed with Dr. Hdez by Dr. Green on 11/04/2023 at 11:00 AM Dictated by: Bi Green MD The radiology attending physician has personally reviewed this study, and had reviewed and/or edited this written report and agrees with it. Electronically signed by: Janel Cole M.D. ECG 12 lead Pilo Davis MD 11/04/2023 12:24 PM ECG 12 lead Date/Time: 11/04/2023 12:24 PM Performed by: Pilo Davis MD Authorized by: Pilo Davis MD Rate: ECG rate: 108 ECG rate assessment: tachycardic Rhythm: Rhythm: sinus tachycardia Ectopy: Ectopy: none QRS: QRS axis: Normal QRS intervals: Normal Conduction: Conduction: normal ST segments: ST segments: Non-specific T waves: T waves: inverted Previous ECG: Previous ECG: Unavailable Interpretation: Interpretation: abnormal Recommended Follow-up: Recommended follow up: further workup in the ED XR Chest PA Lateral 2 Views Narrative: EXAMINATION: 2 view chest radiograph Impression: Mild bilateral atelectasis. No pneumonia. No pleural effusion or pneumothorax. The cardiomediastinal silhouette is normal. Dictated by: Eleuterio Bañuelos M.D. The radiology attending physician has personally reviewed this study, and had reviewed and/or edited this written report and agrees with it. Electronically signed by: Parvez Keating M.D. ASSESSMENT & PLAN Ms. Russo is a 63 year old female with history of HTN, DM, recurrent diverticulitis, IBD, and anadnexal mass presenting with 1 day of confusion and altered mental status, with now resolved AMS and resolved aphasia. #Acute encephalopathy/speech deficits #Perforated diverticulitis with hepatic and splenic abscesses She was worked up for a stroke in the ED, work-up was negative. The most likely cause of her now resolved AMS likely relates to perforated diverticulitis with hepatic and splenic abscesses found on CT in the ED. Colorectal surgery was consulted, recommended patient could be transitioned to regular diet. -IV Zosyn --> transition to oral ciprofloxacin 500 mg BID for four weeks and flagyl 500 mg BID for four weeks. Stop augmentin which patient had been started on after prior hospitalization. -Discharge home today -Blood cultures no growth to date, obtained on 11/03 at 14:49 -IR was consulted and noted abscesses were too small to drain -pantoprazole 40 mg daily #Anemia of chronic disease -Patient's Hgb has been low. Per chart, patient has been persistently anemic and has required transfusions as recently as this weekend. Hgb in the ED was 7.6. Lowest at 6.9 last night. -Hgb 6.9 --> 8.1 this morning with 1 unit of RBCs given overnight. -11/04 iron study: Iron 11, Ferritin 1868, TIBC 95, Transferrin saturation 12 -low B12 (176) and folate (2.5) on 10/26 #IBD -ESR 104, CRP 296.6 -Home mesalamine 1000 mg nightly -GI will follow up outpatient for colonoscopy 11/[address] Jung -Colorectal surgery following up outpatient 12/08 #Malnutrition -Follow up with nutrition outpatient. Patient is in touch with a registered dietitian for follow-up. Had a telephone encounter most recently on 10/23/[address] #Hyponatremia May have been involved in patient's development of AMS which has now resolved with fluids and antibiotics. -patient received IV fluids (LR and NS) -Na improved from 126 to 132 #Adnexal Mass -Follows with [facility] but no formal diagnosis relating to mass at this time Cosigned by Candy Peterson MD at 11/06/2023 1:21 PM CDT * Hospital Course - Eileen Preston - 11/06/2023 11:49 AM CDT Ms. Russo is a 63 y.o. female with history of HTN, DM, recurrent diverticulitis, IBD, and adnexal mass presenting with 1 day of altered mental status and confusion. She was found down by her 3 hours after last known well, and she had aphasia and confusion when he found her without other focal neurologic deficits noted. They came to the ED where she was afebrile and vitals WNL. WBC was 23.5, Hgb 7.6, Na 126. Stroke code was called due to NIHSS of 5. CT head was negative and brain MRI was negative, consistent with stroke mimic likely secondary to infection. CT A/P showed perforated diverticulitis of descending/sigmoid colon with contained perforation and concern for multiple hepatic and splenic abscesses with large cystic mass in the pelvis. In the ED, IR was consulted and noted that the abscesses were too small to drain. Colorectal surgery was consulted and advised admission to floor and antibiotic treatment, no emergent surgical intervention was deemed necessary. GI was called about possibility of doing ascope and deferred the scope to outpatient setting as patient already had a scope scheduled with her GI provider 11/12. She was started on clear liquid diet, then progressed to regular diet after general surgery saw her 11/05 and felt her abdominal exam was re-assuring. They recommended discharge with outpatient follow up and a course of oral antibiotics. She was given IV Zosyn inpatient for treatment of abscesses, will be transitioned to a 4 week course of flagyl and ciprofloxacin outpatient. She received a transfusion for a hemoglobin of 6.9 which subsequently improved to 8.1. Iron labs 11/04 showed Iron 11, Ferritin 1868, TIBC 95, Transferrin saturation 12. She was hyponatremic (126) on admission, which improved with IV fluids to 132. * Plan of Care - Eva Vega RN - 11/06/2023 3:17 AM CDT Problem: Discharge Planning Goal: Understanding discharge needs will improve Outcome: Progressing Problem: Fall Risk Goal: Ability to state ways to decrease the risk of falls will improve Outcome: Progressing Goal: Will remain free from falls Outcome: Progressing Goal: Will remain free from injury from falls Outcome: Progressing Problem: Neurosensory Goal: Achieves stable or improved neurological status Outcome: Progressing Goal: Absence of seizures Outcome: Progressing Goal: Remains free of injury related to seizures activity Outcome: Progressing Goal: Achieves maximal functionality and self care Outcome: Progressing Goal: Ability to maintain intracranial pressure will improve Outcome: Progressing Problem: Respiratory Goal: Achieves optimal ventilation and oxygenation Outcome: Progressing Goal: Ability to maintain a clear airway will improve Outcome: Progressing Goal: Mechanical Ventilation will be safely managed Outcome: Progressing Problem: Cardiovascular Goal: Maintains optimal cardiac output and hemodynamic stability Outcome: Progressing Goal: Absence of cardiac dysrhythmias or at baseline Outcome: Progressing Goal: Cardiovascular status will improve Outcome: Progressing Problem: Skin/Tissue Integrity Goal: Skin integrity remains intact Outcome: Progressing Goal: Incisions, wounds, or drain sites healing without S/S of infection Outcome: Progressing Goal: Oral mucous membranes remain intact Description: Outcome: Progressing Problem: Musculoskeletal Goal: Return mobility [...] Goal: Maintains adequate nutritional intake Outcome: Progressing Goal: Establish and maintain optimal ostomy function Outcome: Progressing Goal: Will show no signs and symptoms of gastrointestinal bleeding Outcome: Progressing Problem: Genitourinary Goal: Absence of urinary retention Outcome: Progressing Goal: Urinary catheter remains patent Outcome: Progressing Problem: Infection Goal: Absence of infection during hospitalization Outcome: Progressing Goal: Absence of fever/infection during anticipated neutropenic period Outcome: Progressing Problem: Metabolic/Fluid and Electrolytes Goal: Electrolytes maintained within normal limits Outcome: Progressing Goal: Hemodynamic stability and optimal renal function maintained Outcome: Progressing Goal: Glucose maintained within prescribed range Outcome: Progressing Problem: Hematologic Goal: Maintains hematologic stability Outcome: Progressing Goals: Clinical Goals for the Shift: Free from falls;VSS;IV abx;Restful night Summary: Pt remained free from falls VSS No complains of pain A&Ox4 IV abx given per MAR orders Multiple loose BM/Good urine output Hgb 6.9-1 unit of blood started at 02:30am Pt had a restful night * Plan of Care - Bing Flores RN - 11/05/2023 4:17 PM CDT Goals: orient to unit Summary: Pt arrived to floor at approximately 1530. A&ox4. Oriented to unit. VSS on RA. Denies pain and SOB. S/O present on admission. MD notified of admission. Bed/chair alarm on. Encouraged to use call light before exiting bed. Problem: Discharge Planning Goal: Understanding discharge needs will improve Outcome: Progressing Problem: Fall Risk Goal: Ability to state ways to decrease the risk of falls will improve Outcome: Progressing Goal: Will remain free from falls Outcome: Progressing Goal: Will remain free from injury from falls Outcome: Progressing * Significant Event - Monica Bridges NP - 11/05/2023 9:22 AM CDT ED Hospitalist Event Note In my role as the ED hospitalist, I have seen and examined this patient and reviewed the chart. I have discussed with the ED team and will assume care of this patient until an inpatient bed and team is assigned. Farhana Russo is a 63 y.o. patient with HTN, DM, recurrent diverticulitis, UC, adnexal mass presents with confusion and AMS for 1 day. Pt reported finding her on the floor in the middle of the night and brought her to the ED d/t expressive aphasia. Upon arrival to the ED, code stroke was called d/t NIHSS of 5. CT head a was negative, subsequent bMRI was also negative for stroke. Neuro felt presenting symptoms were likely stroke mimic. Further work up with CT A/P revealed perforated diverticulitis of descending/sigmoid colon w/ contained perforation and c/f multiple hepatic and splenic abscesses, also noted large cystic mass in the pelvis. Labs notable for WBC 23.5, hgb 7.6, Na 126. Pt reports feeling improved on interview, denies expressive aphasia or confusion. On exam, abdomen distended but soft and non-tender. Chart review: Admission 10/01-10/03 to [facility] for pelvic mass and suspected colonic microperforation. Discharged on Augmentin and flagyl. Outpatient fMRE and /u arranged for pelvic mass, however CRS recommended waiting 4 weeks prior to OR intervention. [facility] f/u 10/22 - recommended MRE and GI f/u prior to deciding on OR intervention GI f/u 10/26 - plan for MRE and c-scope for UC, continue on Augmentin. Likely needs resection via CRS Plan: #Perforated diverticulitis w/ hepatic and splenic abscesses - CRS following, ok for CLD - continue zosyn for broad spectrum coverage - IR c/s for abscess drainage -> too small for drain placement - start mIVF - f/u Bcx - repeat CBC #hyponatremia - mIVF - repeat BMP #adnexal mass - Follows with [facility] but no dx of cancer. Per pt, plan is for eventual removal but was told her UC and diverticulitis need to be addressed first #UC - continue mesalamine - consider GI c/s Monica Bridges NP * ED Re-evaluation Note - Seble Melo MD - 11/05/2023 7:33 AM CDT ED Re-evaluation TRANSITION OF CARE: I, Seble Melo MD, am taking signout. I have reviewed all pertinent vital signs, allergies, and history available in the chart. Summary: 63 y.o. female with PMHx T2DM, HTN, adnexal mass who p/w expressive aphasia and AMS. Now found to have perforated diverticulitis. No stroke. Surgery, software implementation specialist consulted. Pending: Admission to medicine Dispo: Medicine ED Course as of 11/05/23 0850 Time: 11/03 1107 Value: WBC(!): 23.5 Comment: No specific clear source although history limited by expressive aphasia. Patient with abdominal tumor as a possible source By: Pilo Davis MD Time: 11/03 1130 Comment: Additional history from patient indicates that she is still on Augmentin her expressive aphasia remains but seems to be improving differential also includes possible unwitnessed seizure withfocal deficits associated with postictal phase this could also be related to infectious etiology and anemia contributing. This broad differential and refocus associated with no specific perfusion deficit on the CT perfusion study. Patient's spouse mentions that the patient has had a progressive cough for 2 days possible infectious source, consider also viral source. By: Pilo Davis MD Time: 11/03 1208 Comment: Per neuro, possible stroke mimic iso UTI. Will order MRI Brain w/o to evaluate stroke further. By: Seble Melo MD Time: 11/03 1224 Value: Trop I hs: 8 Comment: Noting inverted t waves on EKG no old comparison, no CP, continue to trend trop By: Pilo Davis MD Time: 11/03 1431 Comment: IMPRESSION: 1. Findings of perforated diverticulitis of the descending/sigmoid colon with a contained perforation. There has been interval development of numerous hypoattenuating lesions seen throughout the liver and spleen consistent with abscesses. 2. 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 3. Small left pleural effusion. The right pleural effusion has resolved in the interval. By: Seble Melo MD Time: 11/03 1445 Comment: Noting acute perforated diverticulitis pending surgery consultation and dispo dependent upon coordination between surgery and neuro By: Pilo Davis MD Time: 11/03 1902 Value: MRI Brain WO Contrast Comment: IMPRESSION: No acute intracranial abnormality. By: Amanda Mederos MD Time: 11/03 1905 Comment: Will start zosyn for perforated diverticulitis By: Amanda Mederos MD Time: 11/03 1948 Comment: Surgery has evaluated. Believe diverticulitis is stable, don't feel is source of AMS. Feelovarian mass is likely cause of illness. They will continue to follow as consults. By: Amanda Mederos MD Time: 11/04 2051 Comment: TORIE requests we call [facility] and let them know pt is here as she follows with Dr. Rhodes here in case OBGYN wants to admit her. [facility] will accept if [facility] declines By: Amanda Mederos MD Time: 11/04 2111 Comment: Discussed pt with OBGYN. They will evaluate the pt. By: Amanda Mederos MD Time: 11/04 2139 Comment: OMAR states that although she has a mass, she does not currently have a known malignancy,so she can be admitted to medicine. Updated MTA. By: Amanda Mederos MD Time: 11/03 2204 Comment: [facility] accepted for admission. Ready to move. By: Amanda Mederos MD Time: 11/03 2310 Comment: Attending note: 63 yo F here with expressive aphasia. No go TNK on stroke alert. Containedperforated diverticulitis on imaging. Surgery has seen. Also found to have large ovarian mass, Surveillance Operator aware. Medicine admission. By: Lakeshia Abrams MD Time: 11/04 0731 Comment: Taking over care from off-going resident, Dr. Reeves: 63F p/w expressive aphasia now with perforated diverticulitis, UTI. On empiric abx. Will be admitted to medicine. By: Seble Melo MD Time: 11/04 0733 Comment: Recieved signout at shift change from Dr. Abrams. Reviewed presentation, pertinent labs, imaging and additional workup/consultations and anticipated disposition. Admit to medicine, 63F was initially presenting withAMS and expressive aphasia, found to be septic,no CVA, with perforated diverticulitis, on zosyn By: Juan Carlos Ovalle MD Time: 11/04 0849 Comment: Care will be taken over by ED HospitalistCyrus NP By: Seble Melo MD Time: 11/04 0850 Comment: Spoke with hospitalist, who will take over care of the patient primarily. ED staff will remain available to assist in patient care while they remain in the emergency department. By: Juan Carlos Ovalle MD Cummings, Olivia Whitney, MD Resident 11/05/23 0734 * ED Re-evaluation Note - Lakeshia Abrams MD - 11/05/2023 12:05 AM CDT ED Re-evaluation TRANSITION OF CARE: I, Lakeshia Abrams MD, am taking signout from off-going resident. I have reviewed all pertinent vital signs, allergies, and history available in the chart. Summary: 63 y.o. female h/o T2DM, HTN, adnexal mass history presenting due to expressive aphasia and AMS. CVA workup - negative. CT scan with contained diverticulitis; surgery following with plan to continue abx. Adnexal mass noted on imaging; OBANA kumar with admission to medicine. Pending: N/A Dispo: Admission to medicine ED Course as of 11/12/23 1139 Time: 11/03 1107 Value: WBC(!): 23.5 Comment: No specific clear source although history limited by expressive aphasia. Patient with abdominal tumor as a possible source By: Pilo Davis MD Time: 11/03 1130 Comment: Additional history from patient indicates that she is still on Augmentin her expressive aphasia remains but seems to be improving differential also includes possible unwitnessed seizure withfocal deficits associated with postictal phase this could also be related to infectious etiology and anemia contributing. This broad differential and refocus associated with no specific perfusion deficit on the CT perfusion study. Patient's spouse mentions that the patient has had a progressive cough for 2 days possible infectious source, consider also viral source. By: Pilo Davis MD Time: 11/03 1208 Comment: Per neuro, possible stroke mimic iso UTI. Will order MRI Brain w/o to evaluate stroke further. By: Seble Melo MD Time: 11/03 1224 Value: Trop I hs: 8 Comment: Noting inverted t waves on EKG no old comparison, no CP, continue to trend trop By: Pilo Davis MD Time: 11/03 1431 Comment: IMPRESSION: 1. Findings of perforated diverticulitis of the descending/sigmoid colon with a contained perforation. There has been interval development of numerous hypoattenuating lesions seen throughout the liver and spleen consistent with abscesses. 2. 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 3. Small left pleural effusion. The right pleural effusion has resolved in the interval. By: Seble Melo MD Time: 11/03 1446 Comment: Noting acute perforated diverticulitis pending surgery consultation and dispo dependent upon coordination between surgery and neuro By: Pilo Davis MD Time: 11/03 9663 Value: MRI Brain WO Contrast Comment: IMPRESSION: No acute intracranial abnormality. By: Amanda Mederos MD Time: 11/03 1905 Comment: Will start zosyn for perforated diverticulitis By: Amanda Mederos MD Time: 11/03 1948 Comment: Surgery has evaluated. Believe diverticulitis is stable, don't feel is source of AMS. Feelovarian mass is likely cause of illness. They will continue to follow as consults. By: Amanda Mederos MD Time: 11/04 2051 Comment: [facility] requests we call [facility] and let them know pt is here as she follows with Dr. Rhodes here in case OBGYN wants to admit her. [facility] will accept if OBGYN declines By: Amanda Mederos MD Time: 11/04 2111 Comment: Discussed pt with OBGYN. They will evaluate the pt. By: Amanda Mederos MD Time: 11/04 2139 Comment: OMAR states that although she has a mass, she does not currently have a known malignancy,so she can be admitted to medicine. Updated [facility]. By: Amanda Mederos MD Time: 11/03 2204 Comment: [facility] accepted for admission. Ready to move. By: Amanda Mederos MD Time: 11/03 2310 Comment: Attending note: 63 yo F here with expressive aphasia. No go TNK on stroke alert. Containedperforated diverticulitis on imaging. Surgery has seen. Also found to have large ovarian mass, Surveillance Operator aware. Medicine admission. By: Lakeshia Abrams MD Time: 11/04 0604 Comment: Taking over care from off-going resident, Dr. Reeves: 63F p/w expressive aphasia now with perforated diverticulitis, UTI. On empiric abx. Will be admitted to medicine. By: Seble Melo MD Time: 11/04 0614 Comment: Recieved signout at shift change from Dr. Abrams. Reviewed presentation, pertinent labs, imaging and additional workup/consultations and anticipated disposition. Admit to medicine, 63F was initially presenting withAMS and expressive aphasia, found to be septic,no CVA, with perforated diverticulitis, on zosyn By: Juan Carlos Ovalle MD Time: 11/05 0749 Comment: Care will be taken over by ED Hospitalist, DIANA Bridges By: Seble Melo MD Time: 11/05 0750 Comment: Spoke with hospitalist, who will take over care of the patient primarily. ED staff will remain available to assist in patient care while they remain in the emergency department. By: Juan Carlos Ovalle MD I have seen and examined the patient on 11/05/2023. I reviewed the resident's note and agree with the findings and plan of care as documented in the resident's note with modifications as documented inmy note. Bhargavi Reeves MD Resident 11/04/23 [id number] Lakeshia Abrams MD 11/12/23 1140 * ED Re-evaluation Note - Amanda Mederos MD - 11/04/2023 2:42 PM CDT ED Re-evaluation TRANSITION OF CARE: I, Amanda Mederos MD, am taking signout. I have reviewed all pertinent vital signs, allergies, and history available in the chart. Summary: 63 y.o. female history of adnexal mass history of diabetes no previous strokes not on anticoagulation last known well at approximately 2:30 a.m. presents emergency department via private vehicle after being found down this morning at 5:30 a.m. in the morning with reports of expressive aphasia at that time. Had SAM team called. Neuro thinks in setting of infection. Found to have perforated diveriticulitis of the descending/sigmoid colon with contained perforation, numerous abscesses throughout the liver and spleen, large cystic mass in the pelvis consistent w/ primary ovarian malignancy, small L pleural effusion Pending: Surgery to evaluate. Neuro following Dispo: Pending surgery, neuro recs ED Course as of 11/06/23 0023 Time: 11/03 1107 Value: WBC(!): 23.5 Comment: No specific clear source although history limited by expressive aphasia. Patient with abdominal tumor as a possible source By: Pilo Davis MD Time: 11/03 1130 Comment: Additional history from patient indicates that she is still on Augmentin her expressive aphasia remains but seems to be improving differential also includes possible unwitnessed seizure withfocal deficits associated with postictal phase this could also be related to infectious etiology and anemia contributing. This broad differential and refocus associated with no specific perfusion deficit on the CT perfusion study. Patient's spouse mentions that the patient has had a progressive cough for 2 days possible infectious source, consider also viral source. By: Pilo Davis MD Time: 11/03 1208 Comment: Per neuro, possible stroke mimic iso UTI. Will order MRI Brain w/o to evaluate stroke further. By: Seble Melo MD Time: 11/03 1224 Value: Trop I hs: 8 Comment: Noting inverted t waves on EKG no old comparison, no CP, continue to trend trop By: Pilo Davis MD Time: 11/03 1431 Comment: IMPRESSION: 1. Findings of perforated diverticulitis of the descending/sigmoid colon with a contained perforation. There has been interval development of numerous hypoattenuating lesions seen throughout the liver and spleen consistent with abscesses. 2. 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 3. Small left pleural effusion. The right pleural effusion has resolved in the interval. By: Seble Melo MD Time: 11/03 1446 Comment: Noting acute perforated diverticulitis pending surgery consultation and dispo dependent upon coordination between surgery and neuro By: Pilo Davis MD Time: 11/03 9133 Value: MRI Brain WO Contrast Comment: IMPRESSION: No acute intracranial abnormality. By: Amanda Mederos MD Time: 11/03 1905 Comment: Will start zosyn for perforated diverticulitis By: Amanda Mederos MD Time: 11/03 1948 Comment: Surgery has evaluated. Believe diverticulitis is stable, don't feel is source of AMS. Feelovarian mass is likely cause of illness. They will continue to follow as consults. By: Amanda Mederos MD Time: 11/04 2051 Comment: [facility] requests we call [facility] and let them know pt is here as she follows with Dr. Rhodes here in case OBGYN wants to admit her. [facility] will accept if OBGYN declines By: Amanda Mederos MD Time: 11/04 2111 Comment: Discussed pt with OBGYN. They will evaluate the pt. By: Amanda Mederos MD Time: 11/04 2139 Comment: SUSYN states that although she has a mass, she does not currently have a known malignancy,so she can be admitted to medicine. Updated MTA. By: Amanda Mederos MD Time: 11/03 2204 Comment: [facility] accepted for admission. Ready to move. By: Amanda Mederos MD Time: 11/03 2311 Comment: Attending note: 63 yo F here with expressive aphasia. No go TNK on stroke alert. Containedperforated diverticulitis on imaging. Surgery has seen. Also found to have large ovarian mass, Surveillance Operator aware. Medicine admission. By: Lakeshia Abrams MD Time: 11/04 0697 Comment: Taking over care from off-going resident, Dr. Reeves: 63F p/w expressive aphasia now with perforated diverticulitis, UTI. On empiric abx. Will be admitted to medicine. By: Seble Melo MD Time: 11/04 0696 Comment: Recieved signout at shift change from Dr. Abrams. Reviewed presentation, pertinent labs, imaging and additional workup/consultations and anticipated disposition. Admit to medicine, 63F was initially presenting withAMS and expressive aphasia, found to be septic,no CVA, with perforated diverticulitis, on zosyn By: Juan Carlos Ovalle MD Time: 11/05 0749 Comment: Care will be taken over by ED HospitalistCyrus NP By: Seble Melo MD Time: 11/05 0750 Comment: Spoke with hospitalist, who will take over care of the patient primarily. ED staff will remain available to assist in patient care while they remain in the emergency department. By: Juan Carlos Ovalle MD Robertson, Erika Marie, MD 11/04/23 2351 Amanda Mederos MD 11/06/23 0023 * ED Procedure Note - Pilo Davis MD - 11/04/2023 12:24 PM CDT Associated Order(s): ECG 12 lead Procedure ECG 12 lead Date/Time: 11/04/2023 12:24 PM Performed by: Pilo Davis MD Authorized by: Pilo Davis MD Rate: ECG rate: 108 ECG rate assessment: tachycardic Rhythm: Rhythm: sinus tachycardia Ectopy: Ectopy: none QRS: QRS axis: Normal QRS intervals: Normal Conduction: Conduction: normal ST segments: ST segments: Non-specific T waves: T waves: inverted Previous ECG: Previous ECG: Unavailable Interpretation: Interpretation: abnormal Recommended Follow-up: Recommended follow up: further workup in the ED Pilo Davis MD 11/04/23 1224 * ED Procedure Note - Pilo Davis MD - 11/04/2023 11:00 AM CDT Associated Order(s): Critical Care Procedure Critical Care Performed by: Pilo Davis MD Authorized by: Pilo Davis MD Critical care provider statement: As reflected in the history, physical exam, orders, notes, and/or MDM, I was personally present while the patient was critically ill and provided critical care services for 41 minutes, excluding timeinvolved in separately billable procedures. Critical care was necessary to treat or prevent imminent or life- threatening deterioration of the following condition(s): severe neurologic condition and acute cerebrovascular accident (CVA) Critical care was time spent by me providing the following: continuous telemetry, continuous pulse oximetry, interpretation of bedside monitors, imaging, and arterial/venous lab draws, serial bedside patient exams and serial laboratory checks frequent neurologic exams, decision regarding acute lytic therapy and initiation of stroke management CT perfusion and CTA I ordered and reviewed test results and/or imaging studies. I provided emergent necessary critical care medicine services to this patient. I spent time discussing the management of this critically ill patient with consultants and the medical staff. I spent time discussing the management and therapeutic options for this critically ill patient with the patient themselves or with the appropriate designated surrogate decision-maker. I spent time documenting in the medical record. I admitted this patient to a continuous cardiac monitored bed. Pilo Davis MD 11/04/23 1100 documented in this encounter Plan of Treatment Pending Results Name Type Priority Associated Diagnoses Date /Time Hemoglobin A1c Lab STAT 11/04/2023 7:56 AM CDT Magnesium Lab Routine 11/05/2023 5:3 4 PM CDT Phosphorus Lab Routine 11/05/2023 5:3 4 PM CDT Scheduled Orders Name Type Priority Associated Diagnoses Orde r Schedule Hemoglobin A1c Lab STAT Once for 1 Occurrences starting 11/04/2023 until 11/04/2023 Magnesium Lab Routine Once for 1 Occ urrences starting 11/05/2023 until 11/05/2023 Phosphorus Lab Routine Once for 1 Occ urrences starting 11/05/2023 until 11/05/2023 ECG 12 lead ECG Routine Once for 1 Oc currences starting 11/05/2023 until 11/05/2023 documented as of this encounter Procedures Procedure Name Priority Date/Time Associated Diagnosis Comments HEMOGLOBIN AND HEMATOCRIT Routine 11/06/2023 6:31 AM CDT TRANSFUSE RED BLOOD CELLS Timed 11/06/2023 2:30 AM CDT PREPARE RBC Timed 11/06/2023 1:52 AM CDT EGFR Routine 11/05/2023 11:55 PM CDT DIFFERENTIAL AUTO Routine 11/05/2023 11: 55 PM CDT CBC WITH AUTO DIFFERENTIAL Routine 11/05/2023 11:55 PM CDT BASIC METABOLIC PANEL Routine 11/05/2023 11:55 PM CDT ECG 12-LEAD Routine 11/05/2023 5:49 PM CDT EGFR Routine 11/05/2023 5:34 PM CDT DIFFERENTIAL AUTO Routine 11/05/2023 5:3 4 PM CDT IRON PROFILE W/ IBC Routine 11/05/2023 5 :34 PM CDT CBC WITH AUTO DIFFERENTIAL Routine 11/05/2023 5:34 PM CDT ERYTHROCYTE SEDIMENTATION RATE Routine 11/05/2023 5:34 PM CDT TYPE AND SCREEN Timed 11/05/2023 5:34 PM CDT CRP (ACUTE PHASE) Routine 11/05/2023 5:3 4 PM CDT PHOSPHORUS Routine 11/05/2023 5:34 PM CDT MAGNESIUM Routine 11/05/2023 5:34 PM CDT FERRITIN Routine 11/05/2023 5:34 PM CDT COMPREHENSIVE METABOLIC PANEL Routine 11/05/2023 5:34 PM CDT EGFR Timed 11/05/2023 10:41 AM CDT DIFFERENTIAL AUTO Timed 11/05/2023 10: 41 AM CDT CBC WITH AUTO DIFFERENTIAL Timed 11/05/2023 10:41 AM CDT COMPREHENSIVE METABOLIC PANEL Timed 11/05/2023 10:41 AM CDT MRI BRAIN WO CONTRAST ED Urgent/IP Urgent 11/04/2023 5:08 PM CDT TROPONIN I HIGH-SENSITIVITY 4-HOUR Timed 11/04/2023 2:49 PM CDT SEPSIS LACTATE WITH REFLEX STAT 11/04/2023 2:49 PM CDT BLOOD CULTURE STAT 11/04/2023 2:49 PM CDT BLOOD CULTURE STAT 11/04/2023 2:[address] ABDOMEN PELVIS W CONTRAST ED 11/04/2023 2:11 PM CDT ECG 12-LEAD STAT 11/04/2023 12:24 PM CDT RESPIRATORY PATHOGEN PANEL Routine 11/04/2023 12:19 PM CDT TROPONIN I HIGH-SENSITIVITY SERIES (BASELINE, 2HR, 4HR, 6HR) STAT 11/04/2023 11:08 AM CDT URINALYSIS AND REFLEX TO MICROSCOPIC AND CULTURE STAT 11/04/2023 11:08 AM CDT URINALYSIS, MICROSCOPIC ONLY STAT 11/04/2023 11:08 AM CDT APTT STAT 11/04/2023 11:08 AM CDT MT CRITICAL CARE ILL/INJURED PATIENT INIT 30-74 MIN Routine 11/04/2023 11:00 AM CDT CTA/CTP RAPID STROKE Critical/Life-T hreatening 11/04/2023 10:45 AM CDT XR CHEST PA LATERAL 2 VIEWS ED 11/04/2023 8:15 AM CDT EGFR STAT 11/04/2023 7:56 AM CDT DIFFERENTIAL AUTO STAT 11/04/2023 7:5 6 AM CDT CBC WITH AUTO DIFFERENTIAL STAT 11/04/2023 7:56 AM CDT HEMOGLOBIN A1C STAT 11/04/2023 7:56 AM CDT COMPREHENSIVE METABOLIC PANEL STAT 11/04/2023 7:56 AM CDT POCT GLUCOSE DEVICE Routine 11/04/2023 7 :46 AM CDT documented in this encounter Results * (ABNORMAL) Hemoglobin and hematocrit (11/06/2023 6:31 AM CDT) Hgb 8.1(L) 11.9 - 15.5 g/dL Hct 25.2(L) 35.6 - 45.5 % GO VASQUEZ Blood 11/06/2023 6:31 AM CDT 11/06/2023 6:57 AM CDT Narrative GO ROBERT - 11/06/2023 7:32 AM CDT 1 hour after the red blood cell transfusion is complete. us Arnie Nuñez MD LAB BLOOD ORDERABLES Final Result Performing Organization Address City/[facility]/ZIP Co de Phone Number [facility] [place] [address] * Transfuse RBC (11/06/2023 5:00 AM CDT) Blood Arnie Nuñez MD BLOOD TRANSFUSION ORDERABLE S Final Result Performing Organization Address [facility] Co de Phone Number [facility] [place] [address] * Transfuse RBC: 1 Units (11/06/2023 5:00 AM CDT) Blood Arnie Nuñez MD BLOOD TRANSFUSION ORDERABLE S Final Result * Prepare RBC: 1 Units (11/06/2023 1:52 AM CDT) Pathologist [facility] Product code [id number] Unit Number [id number] [facility] Product Blood Type OPOS [facility] Dispense Status PRESUMED TRANSFUSED [facility] Blood 11/06/2023 1:52 AM CDT 11/06/2023 1:53 AM CDT Narrative [facility] - 11/07/2023 9:08 AM CDT Are special requirements needed? (All products are leukoreduced and CMV- safe)- >No Date required:-[id number] LRRBC # of [id number] Reasons:-Hgb <7 g/dL} Arnie Nuñez MD BLOOD BANK PRODUCT ORDERABL ES Final Result Performing Organization Address [facility] Co de Phone Number [facility] [place] [address] * eGFR (11/05/2023 11:55 PM CDT) eGFR 73 >=60 mL/min/1. 73 m2 Comment: Interpretive Data [...] interpretive data was last reviewed 2020. Blood 11/05/2023 11:5 5 PM CDT 11/06/2023 1:28 AM CDT us Sue Mcintyre MD LAB BLOOD ORDERABLES Final Re sult [facility] One [facility] Department [place] [address] * (ABNORMAL) Differential, auto (11/05/2023 11:55 PM CDT) Neutrophil abs 9.3(H) 1.5 - 6.5 K/cumm Imm gran abs 0.1 0.0 - 0.1 K/cumm [facility] Lymphocyte abs 1.6 0.8 - 3.3 K/cumm [facility] Monocyte abs 1.2(H) 0.2 - 0.8 K/cumm [facility] Eosinophil abs 0.1 0.0 - 0.5 K/cumm [facility] Basophil abs 0.0 0.0 - 0.1 K/cumm [facility] Neutrophil pct 75.9 % [facility] Comment: Interpretive Data Percent cell count reference ranges are not reported, since discordance with absolute values may lead to misinterpretation of CBC data. Current Interpretive Data was last revised on 2017. Imm gran pct 0.6 % [facility] Comment: Interpretive Data Percent cell count reference ranges are not reported, since discordance with absolute values may lead to misinterpretation of CBC data. Current Interpretive Data was last revised on 2017. Lymphocyte pct 12.9 % [facility] Comment: Interpretive Data Percent cell count reference ranges are not reported, since discordance with absolute values may lead to misinterpretation of CBC data. Current Interpretive Data was last revised on 2017. Monocyte pct 9.6 % [facility] Comment: Interpretive Data Percent cell count reference ranges are not reported, since discordance with absolute values may lead to misinterpretation of CBC data. Current Interpretive Data was last revised on 2017. Eosinophil pct 0.7 % [facility] Comment: Interpretive Data Percent cell count reference ranges are not reported, since discordance with absolute values may lead to misinterpretation of CBC data. Current Interpretive Data was last revised on 2017. Basophil pct 0.3 % [facility] Comment: Interpretive Data Percent cell count reference ranges are not reported, since discordance with absolute values may lead to misinterpretation of CBC data. Current Interpretive Data was last revised on 2017. Blood 11/05/2023 11:5 5 PM CDT 11/06/2023 1:38 AM CDT us Sue Mcintyre MD LAB BLOOD ORDERABLES Final Re sult [facility] One [facility] Department [place] [address] * (ABNORMAL) CBC with auto differential (11/05/2023 11:55 PM CDT) [facility] WBC 12.3(H) 3.8 - 9.9 K/cumm Hgb 6.9(L) 11.9 - 15.5 g/dL [facility] Hct 22.1(L) 35.6 - 45.5 % [facility] Plt 434(H) 150 - 400 K/cumm [facility] MPV 8.9(L) 9.1 - 12.3 fL [facility] RBC 2.70(L) 3.90 - 5.20 M/cumm [facility] MCV 81.9 81.3 - 96.4 fL [facility] MCH 25.6(L) 27.1 - 33.3 pg [facility] MCHC 31.2(L) 32.3 - 35.7 g/dL [facility] RDW CV 18.6(H) 11.1 - 14.9 % [facility] RDW SD 55.3(H) 35.7 - 48.1 fL [facility] NRBC abs 0.00 0.00 - 0.01 K/cumm [facility] Blood 11/05/2023 11:5 5 PM CDT 11/06/2023 1:38 AM CDT Sue Mcintyre MD LAB BLOOD ORDERABLES Final Re sult [facility] One [facility] Department [place] [address] * (ABNORMAL) Basic metabolic panel (11/05/2023 11:55 PM CDT) [facility] Sodium 132(L) 135 - 145 mmol/L Potassium, pl 3.4 3.3 - 4.9 mmol/L [facility] Chloride 94(L) 97 - 110 mmol/L [facility] CO2 24 22 - 32 mmol/L [facility] Anion gap 14 2 - 15 mmol/L [facility] BUN 12 6 - 25 mg/dL [facility] Creatinine 0.88 0.60 - 1.10 mg/dL [facility] Glucose 82 70 - 199 mg/dL [facility] Comment: Interpretive Data Fasting glucose [...] 2022. Calcium 8.0(L) 8.5 - 10.3 mg/dL [facility] Blood 11/05/2023 11:5 5 PM CDT 11/06/2023 1:28 AM CDT us Sue Mcintyre MD LAB BLOOD ORDERABLES Final Re sult Performing Organization Address [facility] Co de Phone Number [facility] One [facility] Department [place] [address] * ECG 12 lead (11/05/2023 5:49 PM CDT) Pathologist [facility] Ventricular Rate EKG/Min 101 BPM [facility] Atrial Rate 101 BPM [facility] MT-Interval (MSEC) 124 ms [facility] QRS-Interval (MSEC) 84 ms [facility] QT-Interval (MSEC) 356 ms [facility] QTc 461 ms [facility] P [place] 12 degrees [facility] R [place] -15 degrees [facility] T [place] 0 degrees [facility] Diagnosis Sinus tachycardia Cannot rule out Anterior infarct , age undetermined Abnormal ECG No previous ECGs available Confirmed by Jack Ahmadi MD ([id number]) on 11/06/2023 2:55:01 PM [facility] 11/05/2023 5:49 PM CDT 11/06/2023 2:55 PM CDT us Arnie Nuñez MD ECG ORDERABLES Final Resul t Performing Organization Address City/[facility] Co de Phone Number [facility] * (ABNORMAL) Magnesium (11/05/2023 5:34 PM CDT) Magnesium 1.1(L) 1.4 - 2.5 mg/dL Blood 11/05/2023 5:34 PM CDT 11/05/2023 5:46 PM CDT us Sue Mcintyre MD LAB BLOOD ORDERABLES Final Re sult [facility] One [facility] [place] [address] * eGFR (11/05/2023 5:34 PM CDT) eGFR 75 >=60 mL/min/1. 73 [...] interpretive data was last reviewed 2020. Blood 11/05/2023 5:34 PM CDT 11/05/2023 5:46 PM CDT us Arnie Nuñez MD LAB BLOOD ORDERABLES Final Result [facility] [place] [address] * Phosphorus (11/05/2023 5:34 PM CDT) Pathologist [facility] Phosphorus, pl 4.2 2.3 - 4.5 mg/dL Blood 11/05/2023 5:34 PM CDT 11/05/2023 5:46 PM CDT Sue Mcintyre MD LAB BLOOD ORDERABLES Final Re sult Performing Organization Address [facility] Co de Phone Number [facility] [place] [address] * (ABNORMAL) Differential, auto (11/05/2023 5:34 PM CDT) [facility] Neutrophil abs 11.0(H) 1.5 - 6.5 K/cumm Imm gran abs 0.1 0.0 - 0.1 K/cumm [facility] Lymphocyte abs 1.2 0.8 - 3.3 K/cumm [facility] Monocyte abs 1.2(H) 0.2 - 0.8 K/cumm [facility] Eosinophil abs 0.1 0.0 - 0.5 K/cumm [facility] Basophil abs 0.0 0.0 - 0.1 K/cumm [facility] Neutrophil pct 80.6 % [facility] Comment: Interpretive Data Percent cell count reference ranges are not reported, since discordance with absolute values may lead to misinterpretation of CBC data. Current Interpretive Data was last revised on 2017. Imm gran pct 0.8 % [facility] Comment: Interpretive Data Percent cell count reference ranges are not reported, since discordance with absolute values may lead to misinterpretation of CBC data. Current Interpretive Data was last revised on 2017. Lymphocyte pct 9.0 % [facility] Comment: Interpretive Data Percent cell count reference ranges are not reported, since discordance with absolute values may lead to misinterpretation of CBC data. Current Interpretive Data was last revised on 2017. Monocyte pct 9.0 % [facility] Comment: Interpretive Data Percent cell count reference ranges are not reported, since discordance with absolute values may lead to misinterpretation of CBC data. Current Interpretive Data was last revised on 2017. Eosinophil pct 0.4 % [facility] Comment: Interpretive Data Percent cell count reference ranges are not reported, since discordance with absolute values may lead to misinterpretation of CBC data. Current Interpretive Data was last revised on 2017. Basophil pct 0.2 % [facility] Comment: Interpretive Data Percent cell count reference ranges are not reported, since discordance with absolute values may lead to misinterpretation of CBC data. Current Interpretive Data was last revised on 2017. Blood 11/05/2023 5:34 PM CDT 11/05/2023 5:46 PM CDT us Arnie Nuñez MD LAB BLOOD ORDERABLES Final Result [facility] [place] [address] * (ABNORMAL) Ferritin (11/05/2023 5:34 PM CDT) Ferritin 1,868(H) 13 - 150 ng/mL Blood 11/05/2023 5:34 PM CDT 11/05/2023 5:46 PM CDT us Arnie Nuñez MD LAB BLOOD ORDERABLES Final Result [facility] [place] [address] * (ABNORMAL) Iron profile w/ IBC (11/05/2023 5:34 PM CDT) Iron 11(L) 35 - 145 mcg/dL TIBC 95(L) 250 - 400 mcg/dL [facility] Transferrin saturation 12(L) 20 - 50 % [facility] Blood 11/05/2023 5:34 PM CDT 11/05/2023 5:46 PM CDT Arnie Nuñez MD LAB BLOOD ORDERABLES Final Result Performing Organization Address [facility]/ZIP Co de Phone Number [facility] [place] [address] * Type and screen (11/05/2023 5:34 PM CDT) [facility] ABO Rh O Positive Maira, indirect Negative [facility] Blood 11/05/2023 5:34 PM CDT 11/05/2023 5:48 PM CDT Narrative [facility] - 11/05/2023 7:12 PM CDT Has the patient had Daratumumab or Isatuximab in the past 6 months?->Unknown Arnie Nuñez MD LAB BLOOD BANK TEST ORDERAB LES Final Result Performing Organization Address [facility] Co de Phone Number [facility] [place] [address] * (ABNORMAL) CBC with auto differential (11/05/2023 5:34 PM CDT) Pathologist [facility] WBC 13.6(H) 3.8 - 9.9 K/cumm Hgb 8.0(L) 11.9 - 15.5 g/dL [facility] Hct 25.8(L) 35.6 - 45.5 % [facility] Plt 484(H) 150 - 400 K/cumm [facility] MPV 8.5(L) 9.1 - 12.3 fL [facility] RBC 3.13(L) 3.90 - 5.20 M/cumm [facility] MCV 82.4 81.3 - 96.4 fL [facility] MCH 25.6(L) 27.1 - 33.3 pg [facility] MCHC 31.0(L) 32.3 - 35.7 g/dL [facility] RDW CV 18.5(H) 11.1 - 14.9 % [facility] RDW SD 55.8(H) 35.7 - 48.1 fL [facility] NRBC abs 0.00 0.00 - 0.01 K/cumm [facility] Blood 11/05/2023 5:34 PM CDT 11/05/2023 5:46 PM CDT us Arnie Nuñez MD LAB BLOOD ORDERABLES Final Result [facility] One [facility] [place] [address] * (ABNORMAL) Comprehensive metabolic panel (11/05/2023 5:34 PM CDT) Sodium 133(L) 135 - 145 mmol/L Potassium, pl 3.7 3.3 - 4.9 mmol/L [facility] Chloride 94(L) 97 - 110 mmol/L [facility] CO2 24 22 - 32 mmol/L [facility] Anion gap 15 2 - 15 mmol/L [facility] BUN 13 6 - 25 mg/dL [facility] Creatinine 0.86 0.60 - 1.10 mg/dL [facility] Glucose 96 70 - 199 mg/dL [facility] Comment: Interpretive Data Fasting glucose [...] 2022. Calcium 8.6 8.5 - 10.3 mg/dL [facility] Bilirubin, total 0.5 0.1 - 1.2 mg/dL [facility] Protein, pl 7.2 6.5 - 8.5 g/dL [facility] Albumin 2.6(L) 3.5 - 5.0 g/dL [facility] Alk phos 140(H) 40 - 130 Units/L [facility] ALT 46(H) 7 - 45 Units/L [facility] AST 132(H) 10 - 45 Units/L [facility] Blood 11/05/2023 5:34 PM CDT 11/05/2023 5:46 PM CDT us Arnie Nuñez MD LAB BLOOD ORDERABLES Final Result Performing Organization Address City/[facility] Co de Phone Number [facility] [place] [address] * (ABNORMAL) Erythrocyte sedimentation rate (11/05/2023 5:34 PM CDT) Erythrocyte sedimentation rate 104(H) 1 - 30 mm/hr Blood 11/05/2023 5:34 PM CDT 11/05/2023 5:46 PM CDT us Arnie Nuñez MD LAB BLOOD ORDERABLES Final Result Performing Organization Address [facility] Co de Phone Number [facility] [place] [address] * (ABNORMAL) CRP (acute phase) (11/05/2023 5:34 PM CDT) CRP 296.6(H) <=10.0 mg/L Comment:Repeated on Dilution Blood 11/05/2023 5:34 PM CDT 11/05/2023 5:46 PM CDT Arnie Nuñez MD LAB BLOOD ORDERABLES Final Result Performing Organization Address City/[facility] Co de Phone Number [facility] [place] [address] * eGFR (11/05/2023 10:41 AM CDT) eGFR 79 >=60 mL/min/1. 73 [...] interpretive data was last reviewed 2020. Blood 11/05/2023 10:4 1 AM CDT 11/05/2023 11:26 AM CDT us Monica Bridges NP LAB BLOOD ORDERABLES Final Result [facility] One [facility] [place] [address] * (ABNORMAL) Differential, auto (11/05/2023 10:41 AM CDT) Neutrophil abs 10.5(H) 1.5 - 6.5 K/cumm Imm gran abs 0.1 0.0 - 0.1 K/cumm [facility] Lymphocyte abs 1.4 0.8 - 3.3 K/cumm [facility] Monocyte abs 1.1(H) 0.2 - 0.8 K/cumm [facility] Eosinophil abs 0.1 0.0 - 0.5 K/cumm [facility] Basophil abs 0.0 0.0 - 0.1 K/cumm [facility] Neutrophil pct 79.8 % [facility] Comment: Interpretive Data Percent cell count reference ranges are not reported, since discordance with absolute values may lead to misinterpretation of CBC data. Current Interpretive Data was last revised on 2017. Imm gran pct 0.8 % [facility] Comment: Interpretive Data Percent cell count reference ranges are not reported, since discordance with absolute values may lead to misinterpretation of CBC data. Current Interpretive Data was last revised on 2017. Lymphocyte pct 10.4 % [facility] Comment: Interpretive Data Percent cell count reference ranges are not reported, since discordance with absolute values may lead to misinterpretation of CBC data. Current Interpretive Data was last revised on 2017. Monocyte pct 8.4 % [facility] Comment: Interpretive Data Percent cell count reference ranges are not reported, since discordance with absolute values may lead to misinterpretation of CBC data. Current Interpretive Data was last revised on 2017. Eosinophil pct 0.4 % [facility] Comment: Interpretive Data Percent cell count reference ranges are not reported, since discordance with absolute values may lead to misinterpretation of CBC data. Current Interpretive Data was last revised on 2017. Basophil pct 0.2 % [facility] Comment: Interpretive Data Percent cell count reference ranges are not reported, since discordance with absolute values may lead to misinterpretation of CBC data. Current Interpretive Data was last revised on 2017. Blood 11/05/2023 10:4 1 AM CDT 11/05/2023 11:26 AM CDT us Monica Bridges NP LAB BLOOD ORDERABLES Final Result [facility] [place] [address] * (ABNORMAL) CBC with auto differential (11/05/2023 10:41 AM CDT) [facility] WBC 13.1(H) 3.8 - 9.9 K/cumm Hgb 7.1(L) 11.9 - 15.5 g/dL [facility] Hct 23.2(L) 35.6 - 45.5 % [facility] Plt 467(H) 150 - 400 K/cumm [facility] MPV 8.6(L) 9.1 - 12.3 fL [facility] RBC 2.83(L) 3.90 - 5.20 M/cumm [facility] MCV 82.0 81.3 - 96.4 fL [facility] MCH 25.1(L) 27.1 - 33.3 pg [facility] MCHC 30.6(L) 32.3 - 35.7 g/dL [facility] RDW CV 18.5(H) 11.1 - 14.9 % [facility] RDW SD 56.0(H) 35.7 - 48.1 fL [facility] NRBC abs 0.00 0.00 - 0.01 K/cumm [facility] Blood 11/05/2023 10:4 1 AM CDT 11/05/2023 11:26 AM CDT us Monica Bridges NP LAB BLOOD ORDERABLES Final Result [facility] [place] [address] * (ABNORMAL) Comprehensive metabolic panel (11/05/2023 10:41 AM CDT) [facility] Sodium 134(L) 135 - 145 mmol/L Potassium, pl 3.7 3.3 - 4.9 mmol/L [facility] Chloride 96(L) 97 - 110 mmol/L [facility] CO2 25 22 - 32 mmol/L [facility] Anion gap 13 2 - 15 mmol/L [facility] BUN 13 6 - 25 mg/dL [facility] Creatinine 0.82 0.60 - 1.10 mg/dL [facility] Glucose 89 70 - 199 mg/dL [facility] Comment: Interpretive Data Fasting glucose [...] 2022. Calcium 8.3(L) 8.5 - 10.3 mg/dL [facility] Bilirubin, total 0.3 0.1 - 1.2 mg/dL [facility] Protein, pl 6.5 6.5 - 8.5 g/dL [facility] Albumin 2.5(L) 3.5 - 5.0 g/dL [facility] Alk phos 130 40 - 130 Units/L [facility] ALT 41 7 - 45 Units/L [facility] AST 103(H) 10 - 45 Units/L [facility] Blood 11/05/2023 10:4 1 AM CDT 11/05/2023 11:26 AM CDT Monica Bridges NP LAB BLOOD ORDERABLES Final Result [facility] [place] [address] * MRI Brain WO Contrast (11/04/2023 5:08 PM CDT) Anatomical Region Laterality Modality Head and Neck N/A Magnetic Resonan ce 11/04/2023 5:15 PM CDT Impressions 11/04/2023 5:23 PM CDT No acute intracranial abnormality. Dictated by: Fan Arias M.D. The radiology attending physician has personally reviewed this study, and had reviewed and/or edited this written report and agrees with it. Electronically signed by: Deangelo Mcmahon MD Narrative 11/04/2023 5:23 PM CDT EXAMINATION: Magnetic resonance imaging (MRI) of the brain and brainstem without contrast HISTORY: 63 years-old Female with Neuro deficit, acute, stroke suspected. TECHNIQUE: Multiplanar multi-weighted MRI of the brain and brainstem was performed without intravenous contrast using the general brain protocol. COMPARISON: CT head 11/04/2023. FINDINGS: The scalp and calvarium are normal. The superior sagittal sinus demonstrates normal venous flow. The corpus callosum is normal in shape and signal intensity. The posterior fossa is unremarkable. The pituitary and sella are normal. The brainstem and craniocervical junction are unremarkable. Diffusion weighted images reveal no hyperintensities to suggest acute cerebral infarction. The susceptibility weighted sequences reveal no evidence of acute or chronic hemorrhage. The ventricles are normal in size and position without evidence of hydrocephalus. The paranasal sinuses are normal. The visualized portions of the mastoids are unremarkable. The orbits appear normal. Normal flow voids are demonstrated in the carotid arteries and basilar artery. Procedure Note Deangelo Mcmahon MD - 11/04/2023 EXAMINATION: Magnetic resonance imaging (MRI) of the brain and brainstem without contrast HISTORY: 63 years-old Female with Neuro deficit, acute, stroke suspected. TECHNIQUE: Multiplanar multi-weighted MRI of the brain and brainstem was performed without intravenous contrast using the general brain protocol. COMPARISON: CT head 11/04/2023. FINDINGS: The scalp and calvarium are normal. The superior sagittal sinus demonstrates normal venous flow. The corpus callosum is normal in shape and signal intensity. The posterior fossa is unremarkable. The pituitary and sella are normal. The brainstem and craniocervical junction are unremarkable. Diffusion weighted images reveal no hyperintensities to suggest acute cerebral infarction. The susceptibility weighted sequences reveal no evidence of acute or chronic hemorrhage. The ventricles are normal in size and position without evidence of hydrocephalus. The paranasal sinuses are normal. The visualized portions of the mastoids are unremarkable. The orbits appear normal. Normal flow voids are demonstrated in the carotid arteries and basilar artery. IMPRESSION: No acute intracranial abnormality. Dictated by: Fan Arias M.D. The radiology attending physician has personally reviewed this study, and had reviewed and/or edited this written report and agrees with it. Electronically signed by: Deangelo Mcmahon MD Seble Melo MD IMG MRI PROCEDURES Fi nal Result * Sepsis Lactate w/ Reflex (11/04/2023 2:49 PM CDT) Sepsis Lactate 0.9 0.7 - 2.0 mmol/L Blood 11/04/2023 2:49 PM CDT 11/04/2023 2:55 PM CDT Seble Melo MD LAB BLOOD ORDERABLES Final Result [facility] Department [place] [address] * Blood culture Blood (11/04/2023 2:49 PM CDT) Report Final Report: No growth Blood 11/04/2023 2:49 PM CDT 11/04/2023 2:56 PM CDT Narrative [facility] - 11/08/2023 4:00 PM CDT From a different site than #1. Collection->Peripheral Received two aerobic blood culture bottles 1. ?Blood cultures are incubated for 4 [...] performance characteristics have been verified by the [facility]. 5. ?For questions about this culture, contact the Microbiology Laboratory at [phone]. Interpretive data was last revised on 2019. Seble Melo MD LAB MICROBIOLOGY - [facility] ORDERABLES Final Result [facility] Department [place] [address] * Blood culture Blood (11/04/2023 2:49 PM CDT) Report Final Report: No growth Blood 11/04/2023 2:49 PM CDT 11/04/2023 2:56 PM CDT Narrative [facility] - 11/08/2023 4:00 PM CDT Collection->Peripheral Received two anaerobic blood culture bottles 1. ?Blood cultures are incubated for 4 [...] performance characteristics have been verified by the [facility]. 5. ?For questions about this culture, contact the Microbiology Laboratory at [phone]. Interpretive data was last revised on 2019. Seble Melo MD LAB MICROBIOLOGY - GE NERAL ORDERABLES Final Result Performing Organization Address [facility] de Phone Number [facility] Department [place] [address] * Troponin I high-sensitivity 4-hour (11/04/2023 2:49 PM CDT) Trop I hs 8 <=17 ng/L Comment: Interpretive Data For further hscTnI resources including the diagnostic algorithm and an aid in interpretation, copy and paste this link: https://bjhlab.testcatalog.org/show/hsTrop-1 Current Interpretive Data last revised 2019. Trop I hs delta 0 ng/L [facility] Trop I hs interp Insignificant [facility] Blood 11/04/2023 2:49 PM CDT 11/04/2023 3:05 PM CDT Pilo Davis MD LAB BLOOD ORDERABLES F inal Result Performing Organization Address [facility] de Phone Number [facility] Department [place] [address] * CT Abdomen Pelvis W Contrast (11/04/2023 2:11 PM CDT) Anatomical Region Laterality Modality Body N/A Computed Tomogra phy 11/04/2023 2:23 PM CDT Impressions 11/04/2023 2:23 PM CDT 1. ??Findings of perforated diverticulitis of the descending/sigmoid colon with a contained perforation. ??There has been interval development of numerous hypoattenuating lesions seen throughout the liver and spleen consistent with abscesses. 2. ??Large cystic mass in the pelvis with multiple septations suggestive of primary ovarian malignancy. 3. ??Small left pleural effusion. ??The right pleural effusion has resolved in the interval. Electronically signed by: Parvez Keating M.D. Narrative 11/04/2023 2:23 PM CDT EXAMINATION: ??Computed tomography of the abdomen/pelvis with intravenous contrast HISTORY: Found down TECHNIQUE: ??Transaxial computed tomographic images of the abdomen/pelvis were obtained with intravenous contrast according to the standard protocol after the uneventful administration of 100 mL Opti-Ray 350 intravenous contrast. COMPARISON: 10/23/2023 FINDINGS: ?? Small left pleural effusion with resolution of the right effusion. There is bibasilar atelectasis In the interval there has been development of multiple hypoattenuating liver lesions which demonstrate peripheral. ??In the dome of the liver there is a 1.6 cm hypoattenuating lesion on image 24. ??In hepatic segment 2 on image 44 there is a 1.7 cm hypoattenuating lesion. ??There are multiple other scattered hypoattenuating liver lesion. ??The portal vein is patent. ??The gallbladder has been surgically removed. ??There is no biliary dilatation. Normal appearance of the pancreas. ??There are multiple new hypodense lesions seen throughout the spleen which demonstrate some peripheral enhancement. ??This can be seen on image 51 as well as image 63. There is adjacent soft tissue stranding. ??Both adrenal glands are normal. ??There is no hydronephrosis involving either kidney. ??There is retained contrast material within the kidneys. ??The bladder is filled with contrast from prior contrast enhanced CT examination. Redemonstrated is a large anomaly cystic mass with associated septations arising from the right adnexa. ??Uterus itself is normal appearing. ??The left adnexa appears normal. There are findings of perforated diverticulitis of the descending/sigmoid colon with a contained microperforation. ??The findings are similar when compared to the prior examination. ??This can be seen on image 134. ??There is associated soft tissue stranding within the mesentery Remainder of the bowel is normal appearing. There are scattered subcentimeter reactive mesenteric and retroperitoneal lymph nodes. Bone windows show no suspicious lytic or blastic lesions. ?? Procedure Note Parvez Keating MD - 11/04/2023 EXAMINATION: Computed tomography of the abdomen/pelvis with intravenous contrast HISTORY: Found down TECHNIQUE: Transaxial computed tomographic images of the abdomen/pelvis were obtained with intravenous contrast according to the standard protocol after the uneventful administration of 100 mL Opti-Ray 350 intravenous contrast. COMPARISON: 10/23/2023 FINDINGS: Small left pleural effusion with resolution of the right effusion. There is bibasilar atelectasis In the interval there has been development of multiple hypoattenuating liver lesions which demonstrate peripheral. In the dome of the liver there is a 1.6 cm hypoattenuating lesion on image 24. In hepatic segment 2 on image 44 there is a 1.7 cm hypoattenuating lesion. There are multiple other scattered hypoattenuating liver lesion. The portal vein is patent. The gallbladder has been surgically removed. There is no biliary dilatation. Normal appearance of the pancreas. There are multiple new hypodense lesions seen throughout the spleen which demonstrate some peripheral enhancement. This can be seen on image 51 as well as image 63. There is adjacent soft tissue stranding. Both adrenal glands are normal. There is no hydronephrosis involving either kidney. There is retained contrast material within the kidneys. The bladder is filled with contrast from prior contrast enhanced CT examination. Redemonstrated is a large anomaly cystic mass with associated septations arising from the right adnexa. Uterus itself is normal appearing. The left adnexa appears normal. There are findings of perforated diverticulitis of the descending/sigmoid colon with a contained microperforation. The findings are similar when compared to the prior examination. This can be seen on image 134. There is associated soft tissue stranding within the mesentery Remainder of the bowel is normal appearing. There are scattered subcentimeter reactive mesenteric and retroperitoneal lymph nodes. Bone windows show no suspicious lytic or blastic lesions. IMPRESSION: 1. Findings of perforated diverticulitis of the descending/sigmoid colon with a contained perforation. There has been interval development of numerous hypoattenuating lesions seen throughout the liver and spleen consistent with abscesses. 2. 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 3. Small left pleural effusion. The right pleural effusion has resolved in the interval. Electronically signed by: Parvez Keating M.D. us Pilo Davis MD IMG CT PROCEDURES Samantha l Result * (ABNORMAL) ECG 12-LEAD (11/04/2023 12:24 PM CDT) Narrative [facility] - 11/04/2023 12:24 PM CDT Pilo Davis MD ? 11/04/2023 12:24 PM ECG 12 lead Date/Time: 11/04/2023 12:24 PM Performed by: Pilo Davis MD Authorized by: Pilo Davis MD ?? Rate: ??ECG rate: ??108 ??ECG rate assessment: tachycardic ?? Rhythm: ??Rhythm: sinus tachycardia ?? Ectopy: ??Ectopy: none ?? QRS: ??QRS axis: ??Normal ??QRS intervals: ??Normal Conduction: ??Conduction: normal ?? ST segments: ??ST segments: ??Non-specific T waves: ??T waves: inverted ?? Previous ECG: ??Previous ECG: ??Unavailable Interpretation: ??Interpretation: abnormal ?? Recommended Follow-up: ??Recommended follow up: further workup in the ED ?? Procedure Note Pilo Davis MD - 11/04/2023 12:24 PM CDT Procedure ECG 12 lead Date/Time: 11/04/2023 12:24 PM Performed by: Pilo Davis MD Authorized by: Pilo Davis MD Rate: ECG rate: 108 ECG rate assessment: tachycardic Rhythm: Rhythm: sinus tachycardia Ectopy: Ectopy: none QRS: QRS axis: Normal QRS intervals: Normal Conduction: Conduction: normal ST segments: ST segments: Non-specific T waves: T waves: inverted Previous ECG: Previous ECG: Unavailable Interpretation: Interpretation: abnormal Recommended Follow-up: Recommended follow up: further workup in the ED Pilo Davis MD 11/04/23 1224 us Pilo Davis MD ECG ORDERABLES Final Result [facility] * Respiratory pathogen panel Nasopharyngeal (11/04/2023 12:19 PM CDT) Pathologist [facility] Influenza A RNA Not Detected Not Detected Influenza B RNA Not Detected Not Detected [facility] RSV RNA Not Detected Not Detected [facility] COVID-19 RNA Not Detected Not Detected [facility] Coronavirus 229E RNA Not Detected Not Detected [facility] Coronavirus HKU1 RNA Not Detected Not Detected [facility] Coronavirus NL63 RNA Not Detected Not Detected [facility] Coronavirus OC43 RNA Not Detected Not Detected [facility] Adenovirus DNA Not Detected Not Detected [facility] Metapneumovirus RNA Not Detected Not Detected [facility] Rhinovirus/Enterov irus RNA Not Detected Not Detected [facility] Parainfluenza 1 RNA Not Detected Not Detected [facility] Parainfluenza 2 RNA Not Detected Not Detected [facility] Parainfluenza 3 RNA Not Detected Not Detected [facility] Parainfluenza 4 RNA Not Detected Not Detected [facility] B. pertussis DNA Not Detected Not Detected [facility] B. parapertussis DNA Not Detected Not Detected [facility] C. pneumoniae DNA Not Detected Not Detected [facility] M. pneumoniae DNA Not Detected Not Detected [facility] Nasopharyngeal 11/04/2023 12 :19 PM CDT 11/04/2023 12:31 PM CDT Narrative [facility] - 11/04/2023 1:54 PM CDT Is the Patient experiencing symptoms consistent with COVID?->Unknown Surveillance testing for transplant patient?->No ??Interpretive Data The Bright Pattern FilmArray Respiratory Panel (RP2.1) assay is a [...] assay has FDA clearance for testing of [employer] swabs. ??The performance of additional specimen types has been assessed by the performing laboratory. ??The performance characteristics of this assay have been determined by [facility]. Current interpretive data was last revised on 21. iPlo Davis MD LAB MICROBIOLOGY - GEN ERAL ORDERABLES Final Result [facility] [place] [address] * (ABNORMAL) Urinalysis, microscopic only (11/04/2023 11:08 AM CDT) WBC, ur 0-5 0 - 5 /HPF RBC, ur 3-5(A) 0 - 2 /HPF [facility] Epithelial cells, squamous, ur 1-5 0 - 5 /HPF [facility] Mucous, ur Present(A) [facility] Culture Reflex Comment Reflex conditions for urine culture (WBC >10) not met. [facility] Urine 11/04/2023 11:0 8 AM CDT 11/04/2023 11:13 AM CDT Pilo Davis MD LAB URINE ORDERABLES F inal Result Performing Organization Address [facility] de Phone Number [facility] [place] [address] * Troponin I high-sensitivity series (baseline, 2hr, 4hr, 6hr) (11/04/2023 11:08 AM CDT) Trop I hs 8 <=17 ng/L Comment: Interpretive Data For further hscTnI resources including the diagnostic algorithm and an aid in interpretation, copy and paste this link: https://bjhlab.testcatalog.org/show/hsTrop-[email or web address] Current Interpretive Data last revised 2019. Blood 11/04/2023 11:0 8 AM CDT 11/04/2023 11:25 AM CDT Pilo Davis MD LAB BLOOD ORDERABLES F inal Result Performing Organization Address [facility] de Phone Number [facility] Department [place] [address] * (ABNORMAL) aPTT (11/04/2023 11:08 AM CDT) aPTT 23(L) 28 - 38 sec Comment: Interpretive Data Heparin therapeutic range: 66.0 - 100.0 seconds. Range based on correlation with therapeutic heparin activity range of 0.3 - 0.7 Units/mL. Current interpretive data was last revised on 2022. Blood (Blood, Venous) 11/04/2023 11:08 AM CDT 11/04/2023 11:22 AM CDT Narrative [facility] 11/04/[facility] 11:51 AM CDT Potential stroke patient. Pilo Davis MD LAB BLOOD ORDERABLES F inal Result [facility] [place] [address] * (ABNORMAL) Urinalysis reflex to microscopic and culture Urine (11/04/2023 11:08 AM CDT) Color, ur Straw Yellow Clarity, ur Clear Clear [facility] Specific gravity, ur 1.019 1.003 - 1.030 [facility] pH, urine 6.0 [facility] Comment: Interpretive Data ? Urine pH is affected by diet, medications, systemic acid-base disturbances, and renal tubular function. ??pH may affect urinary stone formation. ??For example, urine pH below 6.0 may help reduce the tendency for calcium phosphate stones and pH greater than 6.0 may reduce the tendency for uric acid stone formation. Source: [facility] Current Interpretive Data was last revised on 2017 Protein, ur ql 1+(A) Negative [facility] Glucose, ur ql Negative Negative [facility] Ketones, ur Negative Negative [facility] Bilirubin, ur Negative Negative [facility] Blood, ur 1+(A) Negative [facility] Urobilinogen, ur <2.0 <2.0 mg/dL [facility] Nitrite, ur Negative Negative [facility] Leukocyte esterase, ur 2+(A) Negative [facility] UA reflex comment Reflex to microscopic UA will be performed. [facility] Urine 11/04/2023 11:0 8 AM CDT 11/04/2023 11:13 AM CDT Narrative [facility] - 11/04/2023 11:48 AM CDT If patient unable to urinate, straight cath Pilo Davis MD LAB MICROBIOLOGY - GEN ERAL ORDERABLES Final Result [facility] [place] [address] * MT CRITICAL CARE ILL/INJURED PATIENT INIT 30-74 MIN (11/04/2023 11:00 AM CDT) Narrative Pilo Davis MD - 11/04/2023 11:00 AM CDT Pilo Davis MD ? 11/04/2023 11:00 AM Critical Care Performed by: Pilo Davis MD Authorized by: Plio Davis MD ?? Critical care provider statement: As reflected in the history, physical exam, orders, notes, and/or MDM, I was personally present while the patient was critically ill and provided critical care services for 41 minutes, excluding time involved in separately billable procedures. ??Critical care was necessary to treat or prevent imminent or life-threatening deterioration of the following condition(s): ?? severe neurologic condition and acute cerebrovascular accident (CVA) ??Critical care was time spent by me providing the following: ? continuous telemetry, continuous pulse oximetry, interpretation of bedside monitors, imaging, and arterial/venous lab draws, serial bedside patient exams and serial laboratory checks ?? frequent neurologic exams, decision regarding acute lytic therapy and initiation of stroke management ?? CT perfusion and CTA ?? I ordered and reviewed test results and/or imaging studies. I provided emergent necessary critical care medicine services to this patient. I spent time discussing the management of this critically ill patient with consultants and the medical staff. I spent time discussing the management and therapeutic options for this critically ill patient with the patient themselves or with the appropriate designated surrogate decision-maker. I spent time documenting in the medical record. I admitted this patient to a continuous cardiac monitored bed. us Pilo Davis MD IN CLINIC/BEDSIDE [facility] Final Result * CTA/CTP Rapid Stroke (C) (11/04/2023 10:45 AM CDT) Anatomical Region Laterality Modality Head and Neck N/A Computed Tomogra phy 11/04/2023 11:0 2 AM CDT Impressions 11/04/2023 12:[address] evidence of stroke. 2. No significant carotid artery stenosis. The noncontrast CT head results were discussed with Dr. Squires by Dr. Green on 11/04/2023 at 10:37 AM The CTA/CTP results were discussed with Dr. Hdez by Dr. Green on 11/04/2023 at 11:00 AM Dictated by: Bi Green MD The radiology attending physician has personally reviewed this study, and had reviewed and/or edited this written report and agrees with it. Electronically signed by: Janel Cole M.D. Narrative 11/04/2023 12:42 PM CDT EXAMINATION: 1. Computed tomography angiography (CTA) of the head without and with contrast 2. Computed tomography angiography (CTA) of the neck with contrast 3. CT perfusion imaging of the head with contrast HISTORY: Aphasia and right arm weakness TECHNIQUE: CT of the head was performed with images acquired from skull base to vertex without intravenous contrast. Computed tomographic angiography was then obtained from the aortic arch to the vertex following the uneventful administration of intravenous contrast. 3D images were generated on a dedicated workstation. CT perfusion of the brain was performed with intravenous contrast using a separate data acquisition. The data was transmitted to a separate workstation for processing by [employer] software ([employer]) to produce automated calculations of the estimated cerebral blood flow and Tmax. Contrast information: 110 mL Optiray-350 COMPARISON: CT dated 09/24/2023 FINDINGS: HEAD CT FINDINGS: There is no acute intracranial hemorrhage. There is no noncontrast evidence of acute stroke. There is no vascular hyperdensity of the M1 segments or basilar artery. Scattered ill-defined hypodensities in the periventricular and subcortical white matter are nonspecific, likely on the basis of chronic small vessel ischemic change. There is parenchymal volume loss. There are atherosclerotic calcifications of the intracranial vessels. There are no lacunar infarcts. Cerebral volume is typical for age. Ventricles are of normal size and morphology. There is no mass effect or midline shift. ANGIOGRAPHIC FINDINGS: The visualized aortic arch appears normal with normal configuration of the great vessels. There is no significant stenosis of the origins of the great vessels. There is no geographic area of vascular paucity in the brain. Left anterior circulation: L CCA: no occlusion or significant stenosis L carotid bifurcation: Mild calcified atherosclerosis without significant narrowing, no occlusion or significant stenosis L ICA proximal: no occlusion or significant stenosis, tortuous distal left extracranial ICA without significant narrowing L ICA distal: Mild calcified atherosclerosis without significant narrowing, no occlusion or significant stenosis L ICA terminus: no occlusion or significant stenosis L M1: no occlusion or significant stenosis L M2 branches: no occlusion or significant stenosis L A2: no occlusion or significant stenosis Right anterior circulation: R CCA: no occlusion or significant stenosis R carotid bifurcation: Mild calcified atherosclerosis without significant narrowing, no occlusion or significant stenosis R ICA proximal: no occlusion or significant stenosis R ICA distal: Mild calcified atherosclerosis without significant narrowing, no occlusion or significant stenosis R ICA terminus: no occlusion or significant stenosis R M1: no occlusion or significant stenosis R M2 branches: no occlusion or significant stenosis R A2: no occlusion or significant stenosis Posterior circulation: L Vertebral Artery: no occlusion or significant stenosis, dominant R Vertebral Artery: Mild atherosclerotic narrowing at the origin and in the V4 segment, no occlusion or significant stenosis Basilar Artery: no occlusion or significant stenosis L [employer] WORKER: no occlusion or significant stenosis R [employer]TENANCE WORKER: no occlusion or significant stenosis No cerebral aneurysm is seen. There is no evidence for an arteriovenous malformation. There is no suspicious cervical lymphadenopathy. ??Multinodular right thyroid goiter. ??Moderate multilevel cervical spondylosis. Limited views of the lung apices are normal. PERFUSION FINDINGS: Estimated ischemic core volume (rCBF < 0.3): 0 mL Estimated hypoperfusion volume (Tmax > 6 sec): 0 mL Procedure Note Janel Cole MD - 11/04/2023 EXAMINATION: 1. Computed tomography angiography (CTA) of the head without and with contrast 2. Computed tomography angiography (CTA) of the neck with contrast 3. CT perfusion imaging of the head with contrast HISTORY: Aphasia and right arm weakness TECHNIQUE: CT of the head was performed with images acquired from skull base to vertex without intravenous contrast. Computed tomographic angiography was then obtained from the aortic arch to the vertex following the uneventful administration of intravenous contrast. 3D images were generated on a dedicated workstation. CT perfusion of the brain was performed with intravenous contrast using a separate data acquisition. The data was transmitted to a separate workstation for processing by RAPID software ([employer]) to produce automated calculations of the estimated cerebral blood flow and Tmax. Contrast information: 110 mL [id number] COMPARISON: CT dated 09/24/2023 FINDINGS: HEAD CT FINDINGS: There is no acute intracranial hemorrhage. There is no noncontrast evidence of acute stroke. There is no vascular hyperdensity of the M1 segments or basilar artery. Scattered ill-defined hypodensities in the periventricular and subcortical white matter are nonspecific, likely on the basis of chronic small vessel ischemic change. There is parenchymal volume loss. There are atherosclerotic calcifications of the intracranial vessels. There are no lacunar infarcts. Cerebral volume is typical for age. Ventricles are of normal size and morphology. There is no mass effect or midline shift. ANGIOGRAPHIC FINDINGS: The visualized aortic arch appears normal with normal configuration of the great vessels. There is no significant stenosis of the origins of the great vessels. There is no geographic area of vascular paucity in the brain. Left anterior circulation: L CCA: no occlusion or significant stenosis L carotid bifurcation: Mild calcified atherosclerosis without significant narrowing, no occlusion or significant stenosis L ICA proximal: no occlusion or significant stenosis, tortuous distal left extracranial ICA without significant narrowing L ICA distal: Mild calcified atherosclerosis without significant narrowing, no occlusion or significant stenosis L ICA terminus: no occlusion or significant stenosis L M1: no occlusion or significant stenosis L M2 branches: no occlusion or significant stenosis L A2: no occlusion or significant stenosis Right anterior circulation: R CCA: no occlusion or significant stenosis R carotid bifurcation: Mild calcified atherosclerosis without significant narrowing, no occlusion or significant stenosis R ICA proximal: no occlusion or significant stenosis R ICA distal: Mild calcified atherosclerosis without significant narrowing, no occlusion or significant stenosis R ICA terminus: no occlusion or significant stenosis R M1: no occlusion or significant stenosis R M2 branches: no occlusion or significant stenosis R A2: no occlusion or significant stenosis Posterior circulation: L Vertebral Artery: no occlusion or significant stenosis, dominant R Vertebral Artery: Mild atherosclerotic narrowing at the origin and in the V4 segment, no occlusion or significant stenosis Basilar Artery: no occlusion or significant stenosis L [employer] WORKER: no occlusion or significant stenosis R GROUNDS MAINTENANCE WORKER: no occlusion or significant stenosis No cerebral aneurysm is seen. There is no evidence for an arteriovenous malformation. There is no suspicious cervical lymphadenopathy. Multinodular right thyroid goiter. Moderate multilevel cervical spondylosis. Limited views of the lung apices are normal. PERFUSION FINDINGS: Estimated ischemic core volume (rCBF < 0.3): 0 mL Estimated hypoperfusion volume (Tmax > 6 sec): 0 mL IMPRESSION: 1. No CT evidence of stroke. 2. No significant carotid artery stenosis. The noncontrast CT head results were discussed with Dr. Squires by Dr. Green on 11/04/2023 at 10:37 AM The CTA/CTP results were discussed with Dr. Hdez by Dr. Green on 11/04/2023 at 11:00 AM Dictated by: Bi Green MD The radiology attending physician has personally reviewed this study, and had reviewed and/or edited this written report and agrees with it. Electronically signed by: Janel Cole M.D. Pilo Davis MD [facility] CT PROCEDURES Samantha l Result * XR Chest PA Lateral 2 Views (11/04/2023 8:15 AM CDT) Anatomical Region Laterality Modality Body, Chest N/A Computed Radiogr aphy 11/04/2023 8:33 AM CDT Impressions 11/04/2023 10:54 AM CDT Mild bilateral atelectasis. ??No pneumonia. ??No pleural effusion or pneumothorax. ??The cardiomediastinal silhouette is normal. Dictated by: Eleuterio Bauñelos M.D. The radiology attending physician has personally reviewed this study, and had reviewed and/or edited this written report and agrees with it. Electronically signed by: Parvez Keating M.D. Narrative 11/04/2023 10:54 AM CDT EXAMINATION: 2 view chest radiograph Procedure Note Parvez Keating MD - 11/04/2023 EXAMINATION: 2 view chest radiograph IMPRESSION: Mild bilateral atelectasis. No pneumonia. No pleural effusion or pneumothorax. The cardiomediastinal silhouette is normal. Dictated by: Eleuterio Bañuelos M.D. The radiology attending physician has personally reviewed this study, and had reviewed and/or edited this written report and agrees with it. Electronically signed by: Parvez Keating M.D. Pilo Davis MD IMG XR PROCEDURES Samantha l Result * (ABNORMAL) Hemoglobin A1c (11/04/2023 7:56 AM CDT) Pathologist [facility] Hgb A1C 5.7(H) 4.0 - 5.6 % [...] 7:56 AM CDT 11/04/2023 8:37 AM CDT us Piol Davis MD LAB BLOOD ORDERABLES F inal Result [facility] [place] [address] * eGFR (11/04/2023 7:56 AM CDT) Pathologist [facility] eGFR 90 >=60 mL/min/1. 73 m2 Comment: [...] interpretive data was last reviewed 2020. Blood 11/04/2023 7:56 AM CDT 11/04/2023 8:25 AM CDT us Pilo Davis MD LAB BLOOD ORDERABLES F inal Result [facility] [place] [address] * (ABNORMAL) Differential, auto (11/04/2023 7:56 AM CDT) Neutrophil abs 20.5(H) 1.5 - 6.5 K/cumm Imm gran abs 0.4(H) 0.0 - 0.1 K/cumm [facility] Lymphocyte abs 1.0 0.8 - 3.3 K/[facility]umm [facility] Monocyte abs 1.6(H) 0.2 - 0.8 K/cumm [facility] Eosinophil abs 0.0 0.0 - 0.5 K/cumm [facility] Basophil abs 0.1 0.0 - 0.1 K/cumm [facility] Neutrophil pct 87.2 % [facility] Comment: Interpretive Data Percent cell count reference ranges are not reported, since discordance with absolute values may lead to misinterpretation of CBC data. Current Interpretive Data was last revised on 2017. Imm gran pct 1.7 % [facility] Comment: Interpretive Data Percent cell count reference ranges are not reported, since discordance with absolute values may lead to misinterpretation of CBC data. Current Interpretive Data was last revised on 2017. Lymphocyte pct 4.1 % [facility] Comment: Interpretive Data Percent cell count reference ranges are not reported, since discordance with absolute values may lead to misinterpretation of CBC data. Current Interpretive Data was last revised on 2017. Monocyte pct 6.7 % [facility] Comment: Interpretive Data Percent cell count reference ranges are not reported, since discordance with absolute values may lead to misinterpretation of CBC data. Current Interpretive Data was last revised on 2017. Eosinophil pct 0.1 % [facility] Comment: Interpretive Data Percent cell count reference ranges are not reported, since discordance with absolute values may lead to misinterpretation of CBC data. Current Interpretive Data was last revised on 2017. Basophil pct 0.2 % [facility] Comment: Interpretive Data Percent cell count reference ranges are not reported, since discordance with absolute values may lead to misinterpretation of CBC data. Current Interpretive Data was last revised on 2017. Blood 11/04/2023 7:5 6 AM CDT 11/04/2023 8:25 AM CDT Pilo Davis MD LAB BLOOD ORDERABLES F inal Result [facility] [place] [address] * (ABNORMAL) Comprehensive metabolic panel (11/04/2023 7:56 AM CDT) Sodium 126(L) 135 - 145 mmol/L Potassium, pl 4.0 3.3 - 4.9 mmol/L [facility] Chloride 92(L) 97 - 110 mmol/L [facility] CO2 22 22 - 32 mmol/L [facility] Anion gap 12 2 - 15 mmol/L [facility] BUN 16 6 - 25 mg/dL [facility] Creatinine 0.74 0.60 - 1.10 mg/dL [facility] Glucose 176 70 - 199 mg/dL [facility] Comment: Interpretive Data Fasting glucose [...] 2022. Calcium 8.8 8.5 - 10.3 mg/dL [facility] Bilirubin, total 0.5 0.1 - 1.2 mg/dL [facility] Protein, pl 7.3 6.5 - 8.5 g/dL [facility] Albumin 2.9(L) 3.5 - 5.0 g/dL [facility] Alk phos 172(H) 40 - 130 Units/L [facility] ALT 32 7 - 45 Units/L [facility] AST 55(H) 10 - 45 Units/L [facility] Blood 11/04/2023 7:56 AM CDT 11/04/2023 8:25 AM CDT Pilo Davis MD LAB BLOOD ORDERABLES F inal Result [facility] [place] [address] * (ABNORMAL) CBC with auto differential (11/04/2023 7:56 AM CDT) WBC 23.5(H) 3.8 - 9.9 K/cumm Hgb 7.6(L) 11.9 - 15.5 g/dL [facility] Hct 24.2(L) 35.6 - 45.5 % [facility] Plt 475(H) 150 - 400 K/cumm [facility] MPV 9.1 9.1 - 12.3 fL [facility] RBC 2.99(L) 3.90 - 5.20 M/cumm [facility] MCV 80.9(L) 81.3 - 96.4 fL [facility] MCH 25.4(L) 27.1 - 33.3 pg [facility] MCHC 31.4(L) 32.3 - 35.7 g/dL [facility] RDW CV 18.6(H) 11.1 - 14.9 % [facility] RDW SD 55.3(H) 35.7 - 48.1 fL [facility] NRBC abs 0.00 0.00 - 0.01 K/cumm [facility] Blood 11/04/2023 7:56 AM CDT 11/04/2023 8:25 AM CDT Pilo Davis MD LAB BLOOD ORDERABLES F inal Result Performing Organization Address City/[facility] Co de Phone Number [facility] Department [place] [address] * (ABNORMAL) POCT glucose (11/04/2023 7:46 AM CDT) [facility] Glucose, POC 203(H) 70 - 199 mg/dL Blood 11/04/2023 7:46 AM CDT 11/04/2023 7:46 AM CDT us Notinfile Unknown LAB POCT ORDERABLES - DEVICE F inal Result Performing Organization Address [facility] de Phone Number [facility] Department [place] [address] documented in this encounter Visit Diagnoses Diagnosis Expressive aphasia- Primary Expressive aphasia Altered mental status, unspecified altered mental status type LLQ abdominal pain Abdominal pain, left lower quadrant Acute cough Sepsis without septic shock (CMS/HCC) (HCC) Diverticulitis of colon with perforation Diverticulitis of colon (without mention of hemorrhage) documented in this encounter Admitting Diagnoses Diagnosis Expressive aphasia documented in this encounter Administered Medications Inactive Administered Medications - up to 3 most recent administrations Medication Order MAR Action Action Date Dose Rate Site bisacodyL (DULCOLAX) suppository 10 mg 10 mg, rectal, Daily PRN, constipation, if no results 24 hours after polyethylene glycol administration, Starting on Fri11/05/23 at 1659, Administer if not tolerating PO., Indications: constipationIndicatio ns:constipation bisacodyl EC (DULCOLAX EC) tablet 10 mg 10 mg, oral, Daily PRN, constipation, if no results 24 hours after polyethylene glycol administration, Starting on Fri11/05/23 at 1659, Administer if tolerating PO. Do not crush, chew, cut, dissolve, open or otherwise manipulate tablet/capsule., Indications: constipationIndicatio ns:constipation cefTRIAXone (ROCEPHIN) 2,000 mg/20 mL in sterile water (premix) 2,000 mg 2,000 mg, intravenous, at 240 mL/hr, Administer over 5 Minutes, Every 24 hours scheduled, First dose on Fri11/04/23 at 1346, Indications: Sepsis, Urinary Tract/Genitourinary InfectionIndications: Sepsis,Urinary Tract/Genitourinary Infection Given 11/04/2023 2:56 PM CDT 2,000 mg 240 mL/hr enoxaparin (LOVENOX) syringe 40 mg 40 mg, subcutaneous, Daily (for enoxaparin), First dose on Fri11/05/23 at 2100, Indications: Deep Vein Thrombosis PreventionIndications :Deep Vein Thrombosis Prevention Given 11/05/2023 9:17 PM CDT 40 mg Left Upper Arm ferrous sulfate tablet 325 mg 325 mg (65 mg of elemental iron), oral, Daily with breakfast, First dose on Fri11/05/23 at 0927, For 333 days, Indications: Iron Deficiency AnemiaIndications:Iro n Deficiency Anemia Given 11/06/2023 8:08 AM CDT 325 mg ioversoL (OPTIRAY 350) syringe 110 mL 110 mL, intravenous, Once in imaging, contrast, Starting on Fri11/04/23 at 1046, For 1 dose Contrast Given 11/04/2023 10:45 AM CDT 110 mL ioversoL (OPTIRAY 350) syringe 75 mL 75 mL, intravenous, Once in imaging, contrast, Starting on Fri11/04/23 at 1404, For 1 dose Contrast Given 11/04/2023 2:09 PM CDT 70 mL Lactated Ringer's (LR) infusion 75 mL/hr, intravenous, Continuous, Starting on Fri11/05/23 at 0928 Rate/Dose Verify 11/05/2023 10:57 AM CDT 75 mL/hr 75 mL/hr New Bag 11/05/2023 10:40 AM CDT 75 mL/hr 75 mL/hr loperamide (IMODIUM) capsule 2 mg 2 mg, oral, 2 times daily PRN, diarrhea, Starting on Fri11/04/23 at 2003, Maximum recommended dose 16 mg/day Given 11/06/2023 8:10 AM CDT 2 mg Given 11/05/2023 9:16 PM CDT 2 mg Given 11/05/2023 10:59 AM CDT 2 mg losartan (COZAAR) tablet 25 mg 25 mg, oral, Daily, First dose on Fri11/05/23 at 0927 Given 11/06/2023 8:08 AM CDT 25 mg Given 11/05/2023 10:59 AM CDT 25 mg mesalamine (CANASA) suppository 1,000 mg 1,000 mg, rectal, Nightly, First dose on Fri11/05/23 at 2100 Given 11/05/2023 9:16 PM CDT 1,[address] (PROTONIX) extended release tablet 40 mg 40 mg, oral, Daily, First dose on Fri11/05/23 at 0927, Do not crush, chew, cut, dissolve, open or otherwise manipulate tablet/capsule., Indications: Treatment of Non-Bleeding Gastric DisorderIndications:Treatment of Non-Bleeding Gastric Disorder Given 11/06/2023 8:08 AM CDT 40 mg Given 11/05/2023 10:59 AM CDT 40 mg piperacillin-tazobactam (ZOSYN) 3.375 gram/65 mL in sodium chloride 0.9% (premix) 3.375 g 3.375 g, intravenous, at 130 mL/hr, Administer over 30 Minutes, Every 6 hours scheduled, First dose on Fri11/04/23 at 1907, Indications: Sepsis, perforated diverticulitisIndications:Sepsis,p erforated diverticulitis New Bag 11/06/2023 12:12 PM CDT 3.375 g 130 m L/hr New Bag 11/06/2023 6:01 AM CDT 3.375 g 130 mL/hr New Bag 11/06/2023 12:06 AM CDT 3.375 g 130 mL/hr sodium chloride 0.9% IVPB 0-250 mL 0-250 mL, intravenous, Once, On Sabi 11/06/23 at 0230, For 1 dose, Prime blood tubing and administer amount needed to clear line (usually 50-100 mL) after transfusion complete. New Bag 11/06/2023 2:27 AM CDT 250 mL documented in this encounter Discontinued Medications Medication Sig Discontinue Reason Start Date End Da te metFORMIN (GLUCOPHAGE) 500 mg tablet Take 1 tablet (500 mg total) by mouth daily with breakfast Therapy completed 07/16/2023 11/05/2023 acetaminophen 500 mg capsule Take 2 capsules (1,000 mg total) by mouth every 6 (six) hours as needed for pain 10/04/2023 11/06/2023 metroNIDAZOLE (FLAGYL) 500 mg tabletIndications:Abd ominal/Pelvic Infection Take 1 tablet (500 mg total) by mouth 2 (two) times a day 10/04/2023 11/06/2023 amoxicillin-clavulana te (AUGMENTIN) 875-125 mg per tabletIndications:Abd ominal/Pelvic Infection Take 1 tablet (875 mg of amoxicillin total) by mouth 2 (two) times a day Stop Taking at Discharge 10/04/2023 11/06/2023 documented as of this encounter Active and Recently Administered Medications Times are shown in CDT. Scheduled Medication Order 11/04/2023 11/05/2023 11/06/2023 cefTRIAXone (ROCEPHIN) 2,000 mg/20 mL in sterile water (premix) 2,000 mg (CANCELED) 2,000 mg, intravenous, at 240 mL/hr, Administer over 5 Minutes, Every 24 hours scheduled, First dose on Fri11/04/23 at 1346, Indications: Sepsis, Urinary Tract/Genitourinary Infection 1456 (Given - Provider: Sarah Hurley, ABHAY) enoxaparin (LOVENOX) syringe 40 mg 40 mg, subcutaneous, Daily (for enoxaparin), First dose on Fri11/05/23 at 2100, Indications: Deep Vein Thrombosis Prevention 2117 (Given - Provider: Eva Vega, ABHAY) ferrous sulfate tablet 325 mg 325 mg (65 mg of elemental iron), oral, Daily with breakfast, First dose on Fri11/05/23 at 0927, For 333 days, Indications: Iron Deficiency Anemia 1119 (Not Given - Provider: Familia Mckay, ABHAY - Reason: Medication not available) 0808 (Given - Provider: Lisandra Brower) losartan (COZAAR) tablet 25 mg 25 mg, oral, Daily, First dose on Fri11/05/23 at 0927 1059 (Given - Provider: Familia Mckay, ABHAY) 0808 (Given - Provider: Lisandra Brower) mesalamine (CANASA) suppository 1,000 mg 1,000 mg, rectal, Nightly, First dose on Fri11/05/23 at 2100 2116 (Given - Provider: Eva Vega, ABHAY) pantoprazole DR (PROTONIX) extended release tablet 40 mg 40 mg, oral, Daily, First dose on Fri11/05/23 at 0927, Do not crush, chew, cut, dissolve, open or otherwise manipulate tablet/capsule., Indications: Treatment of Non-Bleeding Gastric Disorder 1059 (Given - Provider: Familia Mckay RN) 0808 (Given - Provider: Lisandra Brower) piperacillin-tazobactam (ZOSYN) 3.375 gram/65 mL in sodium chloride 0.9% (premix) 3.375 g 3.375 g, intravenous, at 130 mL/hr, Administer over 30 Minutes, Every 6 hours scheduled, First dose on Fri11/04/23 at 1907, Indications: Sepsis, perforated diverticulitis 1948 (New Bag - Provider: Baltazar Klein RN)2045 (Stopped - Provider: Baltazar Klein RN)2336 (New Bag - Provider: Baltazar Klein RN) 0529 (New Bag - Provider: Lon Lentz, ABHAY)1311 (New Bag - Provider: Familia Mckay, ABHAY)1833 (New Bag - Provider: Bing Flores, ABHAY) 0006 (New Bag - Provider: Eva Vega, ABHAY)0601 (New Bag - Provider: Eva Vega, ABHAY)1212 (New Bag - Provider: Lisandra Brower) sodium chloride 0.9% IVPB 0-250 mL (COMPLETED) 0-250 mL, intravenous, Once, On Sabi 11/06/23 at 0230, For 1 dose, Prime blood tubing and administer amount needed to clear line (usually 50-100 mL) after transfusion complete. 0227 (New Bag - Provider: Eva Vega, ABHAY) Continuous Medication Order 11/04/2023 11/05/2023 11/06/2023 Lactated Ringer's (LR) infusion 75 mL/hr, intravenous, Continuous, Starting on Fri11/05/23 at 0928 1040 (New Bag - Provider: Familia Mckay, RN)1057 (Rate/Dose Verify - Provider: Familia Mckay RN) 1927 (Due: Stopped) PRN Medication Order 11/04/2023 11/05/2023 11/06/2023 acetaminophen (TYLENOL) tablet 650 mg 650 mg, oral, Every 4 hours PRN, 1st line for pain, fever, fever greater than 38.3 C, Starting on Fri11/05/23 at 1659, Indications: Fever, Pain bisacodyL (DULCOLAX) suppository 10 mg(Linked Group 1) 10 mg, rectal, Daily PRN, constipation, if no results 24 hours after polyethylene glycol administration, Starting on Fri11/05/23 at 1659, Administer if not tolerating PO., Indications: constipation bisacodyl EC (DULCOLAX EC) tablet 10 mg(Linked Group 1) 10 mg, oral, Daily PRN, constipation, if no results 24 hours after polyethylene glycol administration, Starting on Fri11/05/23 at 1659, Administer if tolerating PO. Do not crush, chew, cut, dissolve, open or otherwise manipulate tablet/capsule., Indications: constipation ioversoL (OPTIRAY 350) syringe 110 mL (COMPLETED) 110 mL, intravenous, Once in imaging, contrast, Starting on Fri11/04/23 at 1046, For 1 dose 1045 (Contrast Given - Provider: Adis Cortes, RT) ioversoL (OPTIRAY 350) syringe 75 mL (COMPLETED) 75 mL, intravenous, Once in imaging, contrast, Starting on Fri11/04/23 at 1404, For 1 dose 1409 (Contrast Given - Provider: Zoe Gilliam, RT) loperamide (IMODIUM) capsule 2 mg 2 mg, oral, 2 times daily PRN, diarrhea, Starting on Fri11/04/23 at 2002, Maximum recommended dose 16 mg/day 2010 (Given - Provider: Baltazar Klein RN) 1059 (Given - Provider: Familia Mckay, ABHAY)2116 (Given - Provider: Eva Vega, ABHAY) 0810 (Given - Provider: Lisandra Brower) polyethylene glycol (MIRALAX) packet 17 g 17 g, oral, Daily PRN, constipation, Starting on Fri11/05/23 at 1659, Indications: constipation Linked Groups Order Group 1: bisacodyl EC (DULCOLAX EC) tablet 10 mgJump to med 10 mg, oral, Daily PRN, constipation, if no results 24 hours after polyethylene glycol administration, Starting on Fri11/05/23 at 1659, Administer if tolerating PO. Do not crush, chew, cut, dissolve, open or otherwise manipulate tablet/capsule., Indications: constipation Or bisacodyL (DULCOLAX) suppository 10 mgJump to med 10 mg, rectal, Daily PRN, constipation, if no results 24 hours after polyethylene glycol administration, Starting on Fri11/05/23 at 1659, Administer if not tolerating PO., Indications: constipation documented in this encounter Orders Medications Ordered That Justin ht Not Have Been Administered Count Last Ordered Date First Ordered Date acetaminophen (TYLENOL) tablet 650 mg 1 bisacodyL (DULCOLAX) suppository 10 mg 1 bisacodyl EC (DULCOLAX EC) tablet 10 mg 1 0 11/05/2023 polyethylene glycol (MIRALAX) packet 17 g 1 11/05/2023 Lab Orders Without Results Count Last Ordered D ate First Ordered Date MAGNESIUM 1 11/05/2023 PHOSPHORUS 1 11/05/2023 HEMOGLOBIN A1C 1 11/04/2023 POCT GLUCOSE DEVICE 1 11/04/2023 POCT PROTHROMBIN TIME, WHOLE BLOOD 1 2023 Diet Count Last Ordered Date First Orde red Date ADULT DISCHARGE DIET 1 11/06/2023 Nursing Count Last Ordered Date First Orde red Date DISCHARGE ACTIVITY 1 11/06/2023 DISCHARGE CALL PROVIDER 8 11/06/2023 DISCHARGE INSTRUCTIONS 1 11/06/2023 NURSING COMMUNICATION 2 11/06/20232023 WEIGH PATIENT 1 11/05/2023 CARDIORESPIRATORY MONITOR 1 11/04/2023 CHECK WITH 1 11/04/2023 MISCELLANEOUS NURSING CARE ORDER (SPECIFY) 1 11/04/2023 STRAIGHT CATH 1 11/04/2023 Consult Count Last Ordered Date First Orde red Date IP CONSULT TO GENERAL SURGERY 1 11/04/2023 IV Count Last Ordered Date First Orde red Date SALINE LOCK IV 3 11/04/2023 Admission Count Last Ordered Date First Orde red Date ADMIT TO INPATIENT 1 11/04/2023 Discharge Count Last Ordered Date First Orde red Date DISCHARGE PATIENT 1 11/06/2023 documented in this encounter Additional Health Concerns Infection Onset Date Last Indicated Resolved Time COVID: Suspected 11/04/2023 11/04/2023 11/04/2023 1:55 PM CDT documented as of this encounter Care Teams Forming Mill Operator Relationship Specialty Start Date End Date Kaushal Heath MD [address] [place] [address] PCP - General Internal Medicine 10/30/23 Bigg Delarosa MD [address] [facility] [address] [facility] [address] [place] [address] Referring Physician Gastroenterology 10/15/23 Jefe Choe MD [address] [facility] [address] [facility] [address] [place] [address] Referring Physician Gastroenterology 10/15/23 Melissa Rhodes MD [address] [facility] GYNECOLOGIC ONCOLOGY, [address] [address] Consulting Physician Gynecologic Oncology 10/30/23 documented as of this encounter
--- OUTSIDE RECORDS SUMMARY | 2024-02-08 04:09 | XMS_ITS | Encounter Summary ---
Author Organization [facility] Healthcare Address [address] [place] [address] Care Team Providers Care Junior Web Designer Name Role Phone Bigg Delarosa MD Unavailable [phone] Jefe Choe MD Unavailable + Melissa Rhodes MD Unavailable [phone] Kaushal Heath MD Primary Care Provider + [phone] Chen Philippe RESPITE WORKER Unavailable [phone] Reason for Visit * Reason Comments Unsuccessful Phone Call 2 Encounter Details Date Type Department Care Team (Late st Contact Info) Description 11/12/2023 SHOP/CHAP Initial Outreach [facility] OP CASE MANAGEMENT [address] [place] [id number] Chen Philippe, RESPITE WORKER [phone] [facility] ([facility]) Mailstop [phone] [place], [place] [id number] Social History Tobacco Use Types Packs/Day Years [...] on filedocumented in this encounter Care Teams Junior Web Designer Relationship Specialty Start Date End Date Kaushal Heath MD [address] [place] [address] PCP - General Internal Medicine 10/30/23 Bigg Delarosa MD [address] [place] [address] Referring Physician Gastroenterology 10/15/23 Jefe Choe MD [address] [place] [place] [address] Referring Physician Gastroenterology 10/15/23 Melissa Rhodes MD [address] [facility] GYNECOLOGIC ONCOLOGY, [address] [address] Consulting Physician Gynecologic Oncology 10/30/23 Chen Philippe, [facility] [address] [facility] ([facility]) Mailstop [phone] [place] [address] SHOP Outpatient Computer Artist 11/07/23 11/13/23 documented as of this encounter
--- OUTSIDE RECORDS SUMMARY | 2024-02-08 04:09 | XMS_ITS | Encounter Summary ---
Author Organization [facility] Healthcare Address [address] [place] [address] Care Team Providers Care Senior Director Of Strategy Name Role Phone Bigg Delarosa MD Unavailable [phone] Jefe Choe MD Unavailable + Melissa Rhodes MD Unavailable [phone] Kaushal Heath MD Primary Care Provider + [phone] Chen Philippe [facility] Unavailable [phone] Reason for Visit * Auth/Cert (Routine) Specialty Diagnoses / Procedures Referred By Elizabeth tyler Referred To Contact Diagnoses History of chronic ulcerative colitis History of chronic ulcerative colitis [Z87.19] Procedures [place] COLONOSCOPY FLX DX W/COLLJ SPEC WHEN PFRMD COLONOSCOPY Referral ID Status Reason Start Date Expiration Date Visits Re quested Visits Authorized [id number] 1 1 Encounter Details Date Type Department Care Team (Late st Contact Info) Description 11/13/2023 12:12 PM CDT Anesthesia Event [facility] [address] [facility] [address] [place] [address] Ciro Seay MD [address] [facility] [address] [place] [address] Anesthesia Record Procedure Summary Procedure Name Responsible Anesthesiologist Anesthesia Start Time Anesthesia Stop Time COLON BIOPSY Ciro Seay MD 11/13/23 1212 1300 Events Date Time Event Comment 11/13/2023 1212 An Start 1213 In Room 1217 Start Supplemental O2 1218 An Induction The patient was reevaluated immediately before moderate or deep sedation use and before anesthesia induction. 1219 Anesthesia Ready 1220 An Start Data 1221 Proc Start 1221 an luis now 1255 an stop data 1256 Out of Room 1300 Handoff to RN I completed my handoff [...] Patient disposition at the time of handoff: No value filed. 1300 An Stop Meds Name Total lidocaine (cardiac) syringe 2 % 60 mg propofol 60 mg propofol 386.49 mg sodium chloride 0.9% infusion 500 mL * Agents Name O2% N2O O2 * Blood No blood administrations on file. Lines, Drains, and Airways Type Details Placement Removal Peripheral IV Catheter Size: 22 G; Orientation: Posterior, Right; Location: Hand; Site Prep: Chlorhexidine; Technique: Anatomical landmarks; Inserted by: Yuliet BLANK; Insertion Attempts: 2; Patient Tolerance: Tolerated well; Removal Date: 11/13/23; Removal Time: 1405 11/13/23 1200 by 11/13/23 1405 by Ana Maria Philippe RN Wound 10/02/23; Y; Incisio n; Abdomen; lap sites, transverse; 11/30/23; 1148 10/02/23 0000 by Charlene Tyler RN 11/30/23 1148 by Kathrine Downey RN Wound 10/02/23; Y; Excoria tion; Gluteal Cleft (vertical crease between the buttocks); 11/30/23; 1148 10/02/23 0000 by Charlene Tyler RN 11/30/23 1148 by Kathrine Downey, ABHAY Peripheral IV Placement Date: 10/18 11/10; Placement Time: 0630; Catheter Size: 22 G; Orientation: Posterior, Right; Location: Forearm; Site Prep: Chlorhexidine; Technique: Anatomical urbano; Inserted by: Eva BLANK; Removal Date: 11/13/23; Removal Time: 1200; Removal Reason: Therapy completed 11/06/23 0630 by Eva Vega RN 11/13/23 1200 by Yuliet Linares RN documented in this encounter Social History [...] OR Notes * Anesthesia Postprocedure Evaluation - Ciro Seay MD - 11/13/2023 1:28 PM CDT Patient: Farhana Russo Procedure Summary Date: 11/13/23 Room / Location: [facility] ENDOSCOPY ROOM 3 / [facility] Anesthesia Start: 1212 Anesthesia Stop: 1300 Procedure: COLON BIOPSY Diagnosis: History of chronic ulcerative colitis (History of chronic ulcerative colitis [Z87.19]) Providers: Gildardo Jung MD Responsible Provider: Ciro Seay MD Anesthesia Type: MAC ASA Status: 3 Anesthesia Type: MAC Last vitals BP 126/67 (BP Location: Left arm, Patient Position: Lying) Pulse 94 Temp 36.3 ??C (97.3 ??F) (Temporal) Resp 20 SpO2 93% Anesthesia Post Evaluation Patient location during evaluation: PACU Patient participation: complete - patient participated Level of consciousness: fully awake Pain score: 0 Pain management: adequate Airway patency: patent and adequate Evidence of recall: no Cardiovascular status: acceptable and hemodynamically stable Respiratory status: acceptable and room air Hydration status: acceptable Pt is: normothermic Nausea/Vomiting status: none No notable events documented. * Anesthesia Preprocedure Evaluation - Ciro Seay MD - 11/13/2023 11:47 AM CDT Images from the original note were not included. Anesthesia Evaluation Farhana Russo is a 63 y.o. female COLONOSCOPY Pre-Op Diagnosis Codes: * History of chronic ulcerative colitis [Z87.19] Patient Active Problem List Diagnosis Date Noted Expressive aphasia 11/04/2023 History of chronic ulcerative colitis 10/27/2023 Adnexal mass 10/23/2023 Hypertension 10/20/2023 Type II diabetes mellitus (HCC) 10/20/2023 Diverticulitis of intestine 10/20/2023 Moderate protein-calorie malnutrition (CMS/HCC) (HCC) 10/03/2023 Past Medical History: Diagnosis Date Diabetes mellitus (HCC) Hypertension Past Surgical History: Procedure Laterality Date CHOLECYSTECTOMY 08/2023 TUBAL LIGATION OB History 2 Para 2 Term 2 AB Living 2 SAB IAB Ectopic Multiple Live Births Obstetric Comments Twins Allergies Allergen Reactions Azithromycin Rash Taking? Last Dose Start Date End Date Provider acetaminophen 500 mg capsule -- 11/06/23 12/06/23 Yajaira Ackerman MD Take 2 capsules (1,000 mg total) by mouth every 6 (six) hours as needed (pain) ergocalciferol (VITAMIN D) 50,000 unit capsule Past Week 10/30/23 -- Grabiel Logan MD ferrous sulfate 325 mg (65 mg of elemental iron) tablet Past Week 10/04/23 10/03/24 Renée Rendon MD Take 1 tablet (325 mg total) by mouth daily with breakfast losartan (COZAAR) 25 mg tablet Past Week 07/31/23 -- Grabiel Logan MD mesalamine (CANASA) 1,000 mg suppository 11/12/2023 10/08/23 -- Melissa Rhodes MD Insert 1 suppository (1,000 mg total) into the rectum nightly pantoprazole DR (PROTONIX) 40 mg EC tablet Past Week 09/30/23 -- Grabiel Logan MD potassium chloride ER 10 mEq CR tablet Past Week 10/30/23 -- Grabiel Logan MD triamcinolone (KENALOG) 0.1 % paste -- 08/01/23 -- Provider, MD Grabiel No current facility-administered medications for this encounter. Social History Tobacco Use Smoking Status Never Smokeless Tobacco Not on file Alcohol Use: Not At Risk (11/13/2023) AUDIT-C Frequency of Alcohol Consumption: Never Average Number of Drinks: Patient does not drink Frequency of Binge Drinking: Never Substance and Sexual Activity Drug Use Never No family history on file. There were no vitals filed for this visit. PT: No results found for requested labs within last 30 days. INR: No results found for requested labs within last 30 days. APTT: 11/04/2023: 23 sec (L) Hgb A1C: 11/04/2023: 5.7 % (H) CBC RBC: 11/05/2023: 2.70 M/cumm (L) RDW: No results found for requested labs within last 30 days. MCHC: 11/05/2023: 31.2 g/dL (L) MCH: 11/05/2023: 25.6 pg (L) MCV: 11/05/2023: 81.9 fL Hct: 11/06/2023: 25.2 % (L) Hgb: 11/06/2023: 8.1 g/dL (L) WBC: 11/05/2023: 12.3 K/cumm (H) MPV: 11/05/2023: 8.9 fL (L) Platelets: 11/05/2023: 434 K/cumm (H) RDW CV: 11/05/2023: 18.6 % (H) RDW Sd: 11/05/2023: 55.3 fL (H) BMP Glucose: 11/05/2023: 82 mg/dL Calcium: 11/05/2023: 8.0 mg/dL (L) Sodium: 11/05/2023: 132 mmol/L (L) Potassium: 11/05/2023: 3.4 mmol/L CO2: 11/05/2023: 24 mmol/L Chloride: 11/05/2023: 94 mmol/L (L) BUN: 11/05/2023: 12 mg/dL Creatinine: 11/05/2023: 0.88 mg/dL DOS Physical Exam Medical history, medications, and allergies reviewed. Attestation: This PAT evaluation 11/13/2023. Airway Exam: Mallampati: II Cervical ROM: FROM TM distance: normal Upper lip bite test class: 1 Cardiovascular Exam: Rate: regular Rhythm: regular Pulmonary Exam: LCTA, bilat EENT Exam: trachea midline Dental Exam: Appears intact Skin Exam: Skin is warm. Turgor is normal. Abdominal Exam: Abdomen is soft. Bowel sounds are present. Current state: Patient's current state is cooperative and interactive. Anesthesia Plan ASA 3 My patient is approved for the Anesthesia Controlled Medication protocol when under care of a TELEVISION ANALYZER Planned anesthesia: MAC Induction: Induction: intravenous. Postoperative Plan: Postoperative administration opioids intended. No postoperative mechanical ventilation intended. Patient's planned disposition post procedure is Outpatient. No trial extubation planned. Informed Consent: Discussed plan with TELEVISION ANALYZER. Anesthesia plan and risks discussed with patient. Consent and Attending signature: I and/or my designee have discussed the anesthesia plan, benefits, possible alternatives, parental presence at time of induction (if indicated), and clinically relevant risks that may include dental injury, unintentional awareness, and/or other complications. The patient and/or parent/legal guardian understand, and agree to proceed. All questions answered. documented in this encounter Plan of Treatment Not on file documented as of this encounter Visit Diagnoses Not on filedocumented in this encounter Administered Medications Inactive Administered Medications - up to 3 most recent administrations Medication Order MAR Action Action Date Dose Rate Site lidocaine (cardiac) (XYLOCAINE) preservative free injection intravenous, As needed, Starting on Sabi 11/13/23 at 1218, Anesthesia Intra-op, Indications: Ventricular ArrhythmiasIndications:V entricular Arrhythmias Given 11/13/2023 12:18 PM CDT 60 mg propofoL (DIPRIVAN) 10 mg/mL IV intravenous, As needed, Starting on Sabi 11/13/23 at 1218, Anesthesia Intra-op Given 11/13/2023 12:18 PM CDT 60 mg propofoL (DIPRIVAN) 10 mg/mL IV intravenous, Continuous PRN, Starting on Sabi 11/13/23 at 1218, Anesthesia Intra-op New Bag 11/13/2023 12:18 PM CDT 175 mcg/kg/min 66.255 mL/hr sodium chloride 0.9% infusion 30 mL/hr, intravenous, Continuous, Starting on Sabi 11/13/23 at 1245, Pre-Procedure (GI) New Bag 11/13/2023 12:12 PM CDT New Bag 11/13/2023 12:04 PM CDT 30 mL/hr 30 mL/hr New Bag 11/13/2023 12:03 PM CDT 30 mL/hr 30 mL/hr documented in this encounter Care Teams Senior Director Of Strategy Relationship Specialty Start Date End Date Kaushal Heath MD [address] [place] [address] PCP - General Internal Medicine 10/30/23 Bigg Delarosa MD [address] [facility] [address] [place] [address] Referring Physician Gastroenterology 10/15/23 Jefe Choe MD [address] [facility] [address] [place] [address] Referring Physician Gastroenterology 10/15/23 Melissa Rhodes MD [address] [facility] GYNECOLOGIC ONCOLOGY, [address] [address] Consulting Physician Gynecologic Oncology 10/30/23 Chen Philippe LCSW [address] [facility] ([facility] [place] Mailstop [phone] [place] [address] SHOP Outpatient Furnace Tender 11/07/23 11/13/23 documented as of this encounter
--- OUTSIDE RECORDS SUMMARY | 2024-02-08 04:09 | XMS_ITS | Encounter Summary ---
Author Organization [facility] Address [address] [place] [address] Care Team Providers Care Spring Winder Name Role Phone Bethany Arriola MD Unavailable [phone] Bethany Arriola MD Primary Care Provider Reason for Referral * MRI/CAT/PET Scan (Routine) - Closed Specialty Diagnoses / Procedures Referred By Elizabeth t Referred To Contact Radiology Diagnoses Abdominal pain Procedures MRI Abdomen Pelvis Enterography W WO Contrast Melissa Rhodes MD [address] [phone] [place] [address] Phone: tel: fax: [address] [phone] Referral ID Status Reason Start Date Expiration Date Visits Re quested Visits Authorized [id number] Closed 10/04/2023 11/02/2024 1 1 Reason for Visit * Auth/Cert (Routine) Specialty Diagnoses / Procedures Referred By Contac t Referred To Contact Diagnoses Abdominal pain lg adnexal mass, FAILURE TO THRIVE Procedures NA Referral ID Status Reason Start Date Expiration Date Visits Re quested Visits Authorized [id number] 1 1 Encounter Details Date Type Department Care Team (Latest Contact Info) Description 10/02/2023 12:20 PM CDT - 10/04/2023 1:00 PM CDT Hospital Encounter [address] [phone] Melissa Rhodes MD [address] [id number] [place] [address] Bowel perforation (HCC) (Primary Dx); Abdominal pain; Pelvic mass Discharge Disposition: Discharge to home or self [...] Sign Reading Time Taken Comments Blood Pressure 144/70 10/04/2023 11:44 AM CDT Pulse 91 10/04/2023 11:44 AM CDT Temperature 37.2 ??C (99 ??F) 10/04/2023 11:44 AM CDT Respiratory Rate 18 10/04/2023 11:44 AM CDT Oxygen Saturation 98% 10/04/2023 11:44 AM CDT Inhaled Oxygen Concentration - - Weight 66.9 kg (147 lb 7.8 oz) 10/03/2023 9:00 A M CDT Height 156.2 cm (5' 1.5 ) 10/03/2023 9:00 AM CDT Body Mass Index 27.42 10/03/2023 9:00 AM CDT documented in this encounter Discharge Summaries * Earlene Germain MD - 10/04/2023 9:17 AM CDT Inpatient Discharge Summary BRIEF OVERVIEW Admitting Provider: Melissa Rhodes MD Discharge Provider: Melissa Rhodes MD Primary Care Physician at Discharge: Bethany Arriola MD [phone] Admission Date: 10/02/2023 Discharge Date: 10/04/2023 Admission Location: [facility] Problems/Diagnoses: Principal Problem: Abdominal pain Active Problems: Moderate protein-calorie malnutrition (CMS/HCC) (HCC) Resolved Problems: No resolved hospital problems. DETAILS OF HOSPITAL STAY Presenting Problem/History of Present Illness: Farhana Russo is a 63 y.o. who was seen in Dr. Rhodes's clinic today 10/01 and now being admitted for new pelvic mass and suspected colonic microperforation. . Of note, reports she was diagnosed with UC in 2022 when her PCP drained some kind of rectal abscess . Patient treated with mesalamine only. Subsequent colonoscopy same year suggestive of UC (rectal and sigmoid inflammation, biopsy with colitis and granulomas). Currently following with Dr. Miller, treating with mesalamine. She has had diarrhea 6-7x daily for the past year (occasionally bloody). She has lost 30-40 pounds in the past year 2/2 decreased appetite and abdominal fullness. She reports while at work in August, she began to have abdominal pain, fevers, and vigorating chills for which she presented to the ED. CT scan performed at this hospital notable for large pelvic mass (12 x 11.2 x 15.1 cm) gall stones, urinary stones, thickened bowel/bladder, possible diverticulitis,possible cholecystitis. Patient found to have acute cholecystectomy and received lap balaji with improvement of abdominal pain and was discharged after 5-6 days. She was re-admitted 09/24-09/30/23 for diarrhea and weakness, and found to have sigmoid colitis and diverticulitis with microperforation w/o free air to be treated w/ ceptra until 10/06. Also noted to have anemia w/ Hgb 7.6, treated with panto prazole and given blood trnasfusion. Lastly, noted to have a UTI with ESBL treated with bactrim andhyponatremia which resolved. She saw Dr. Rhodes today in clinic to follow up for her pelvic mass. In clinic, was found to have grayish-yellow gelatinous rectal discharge. She was admitted to to [facility] for workup of a possible colonic microperforation vs other GI disease. On arrival to 0, patient appears comfortable,. She denies pain. She is well oriented. She denies nausea/vomiting/fevers/chills/O[place]/CP/SOB. She has had poor p o intake for some time, which patient attributes to combo of decreased appetite and abdominal fullness. States her urine output has been unchanged. Hospital Course: Farhana Russo is a 63 y.o. F with PMH ulcerative colitis (dx 2022) and 15cm pelvic cyst, presentingwith abdominal distention, rectal discharge, and colonic microperforation. #Ulcerative colitis #Diverticulitis with microperforation Diagnosed with ulcerative colitis in 2022 after developing perirectal abscess/fistula with colonoscopy with sigmoid/rectal colitis and granulomas. Patient has history of sticky dawn diarrhea 6-7 times daily since 2022. Stools intermittently have dark blood or bright red blood. She follows with GI Dr. Miller at [facility]. Ulcerative colitis has been treated with home mesalamine 1000mg suppository nightly, and never needed steroids. Patient was admitted 09/23 to [place] with diverticulitis, found to have microperforation without free air, managed nonoperatively, and was discharged 09/29 on bactrim with outpatient followup. Patient was admitted 10/01 to [facility] for workup of colonic microperforation prior to management of 15cm adnexal cyst. Admission labs WBC 8.5, Hgb 8.1. Patient was stable on admission with CRP 41.8, blood cultures x2 with NG. CT CAP 10/01 (compared to 09/23 from OSH) showed decreased mural thickening and stranding of the sigmoid and descending colon consistent with d iverticulitis with an area of microperforation measuring up to 1.7 cm, previously 2.6 cm. Colorectal surgery recommended nonoperative management with zosyn (10/02-10/03) and gave recommendations for poabx upon discharge; they also recommended GI consult for IBD workup and waiting at least 4 wks before operating on pelvic mass.GI team confirmed that most of their workup for this patient would be outpatient, including initiating treatment if indicated if patient was determined to have Chron's and not US. Stool studies were collected per GI request, and they also recommended MRE.They will plan for colonoscopy pending timing of surgery for pelvic mass. Patient to continue on mesalamine and pantoprazole on discharge. Patient to follow up with GI outpatient; GI contacted by user experience designer onc team prior to discharge and they will call patient to schedule a follow up appointment. Patient was discharged on augmentin 875-125mg q8h and flagyl 500mg bid antibiotics (10/03-indefinitely) for colonic microperforation and bactrim (double strength 1 tab q12h until 10/06) for treatment of her ESBL UTI. MRE order placed for outpatient. On day of discharge, stool cultures, O&P were still pending. #Pelvic mass #Abdominal distention Patient has lost 30-40 pounds since 2022 due to decreased appetite and abdominal fullness. Pelvic cystic mass was discovered incidentally on OSH imaging in 08/2023, US suggesting benign, tumor [id number] 29, Ca19-9 4, CEA 1. Last menstrual period was in her early 50s. On admission, denied vaginalbleeding or abdominal pain. No family history of cancer or bleeding. Patient was referred to Dr. Rhodes for workup of adnexal cyst, but surgical management was deferred pending resolution of colonicmicroperforation (see other problem). On admission to [facility] 10/[facility], physical exam showed moderate abdominal distention without tenderness. Admission CA125 104, likely secondary to peritoneal irritation in setting of bowel microperforation. CT CAP 10/01 with unchanged 17cm pelvic cystic mass, likely right ovarian in origin, read as concerning for malignancy. New moderate volume ascites and small bilateral pleural effusions. Inhibin A and B were pending on discharge. Per colorectal surgery, will wait 4 weeks prior to surgery for pelvic mass. Pt to follow up with Dr. Rhodes in 3 weeks, and receive CTAP prior. #Anemia OSH Hgb 7.6 on 09/29, fecal occult blood positive, received EGD and iron infusion with discharge on home ferrous sulfate 325 mg. Admission Hgb 8.1 on 10/01. Iron profile obtained this admission w/ low iron, low TIBC, and ferritin elevated; consistent w/ anemia of chronic disease. #UTI with ESBL Per OSH records, was diagnosed with UTI with ESBL, discharged 09/29 on bactrim with 12 doses (see media for susceptibilities). On [facility] admission denied urinary symptoms. Collected UA and urine culture,which resulted as clinically insignificant growth. UTI treatment was covered by zosyn as above then transitioned back to bactrim as above. #Hypertension Held home losartan 25mg daily, to restart on discharge with PCP follow-up. #Diabetes mellitus Patient reported diabetes controlled. Held home metformin 500mg qAM, to restart on discharge with PCP follow-up. #Acute Pain 2/2 Malignancy Denied pain during admission. Active Issues Requiring Follow-up: Diverticulitis and IBD- follow up with GI for workup Pelvic mass- follow up with Dr. Rhodes for surgical planning (3 weeks following discharge - to obtain CTAP prior to) Test Results Pending at Discharge: Pending Labs Order Current Status Cryptosporidium and Giardia antigen assay Stool In process Infection Prevention VRE Culture Stool In process Infection Prevention VRE Culture Stool Rectum In process Inhibin A and B In process Ova and parasite exam Stool In process Blood culture Blood Preliminary result Blood culture Blood Preliminary result Stool culture Stool Rectum Preliminary result Stool culture Stool Rectum Preliminary result Urine culture Urine Preliminary result Operative Procedures Performed: None Other Procedures: None Pertinent Test Results: C. Diff neg Stool Cx/ Ova & Parasites in process Discharge Details Physical Exam at Discharge: Discharge Condition: stable Pulse: 91 Resp: 18 BP: 144/70 Temp: 37.2 ??C (99 ??F) Weight: 147 lb 7.8 oz (66.9 kg) Pertinent Exam Findings at Discharge: see progress note from 10/03 Discharge Disposition: Discharge to home or self careCode Status at Discharge: Full Code Discharge Instructions: See AVS Discharge Medications: Current Medications TAKE these medications acetaminophen 500 mg capsule Take 2 capsules (1,000 mg total) by mouth every 6 (six) hours as needed for pain amoxicillin-clavulanate 875-125 mg per tablet Take 1 tablet (875 mg of amoxicillin total) by mouth 2 (two) times a day For: Abdominal/Pelvic Infection Commonly known as: AUGMENTIN ferrous sulfate 325 mg (65 mg of elemental iron) tablet Take 1 tablet (325 mg total) by mouth daily with breakfast For: anemia from inadequate iron losartan 25 mg tablet Take 1 tablet (25 mg total) by mouth daily Commonly known as: COZAAR mesalamine 1,000 mg suppository 1 suppository (1,000 mg total) Commonly known as: CANASA metFORMIN 500 mg tablet Take 1 tablet (500 mg total) by mouth daily with breakfast Commonly known as: GLUCOPHAGE metroNIDAZOLE 500 mg tablet Take 1 tablet (500 mg total) by mouth 2 (two) times a day For: Abdominal/Pelvic Infection Commonly known as: FLAGYL pantoprazole DR 40 mg EC tablet Take 1 tablet (40 mg total) by mouth daily Commonly known as: PROTONIX sulfamethoxazole-trimethoprim 800-160 mg per tablet Take 1 tablet (160 mg of trimethoprim total) by mouth 2 (two) times a day for 6 doses For: Urinary Tract/Genitourinary Infection, ESBL Commonly known as: BACTRIM DS triamcinolone 0.1 % paste Commonly known as: KENALOG Outpatient Follow-Up: - Scheduling pool messaged for 3 week f/u appointment w/ Dr. Rhodes. - GI team notified and will call and schedule follow up with her. Cosigned by Melissa Rhodes MD at 10/06/2023 9:12 AM CDT documented in this encounter Discharge Instructions * Discharge Instructions* Earlene Germain MD - 10/04/2023 11:00 AM CDT Call Your Doctor If: * You have a fever greater than 101 degrees. * You feel dizzy, tired or like you might faint. * You have diarrhea for more than 1-2 days. * You have constipation that makes you feel bad. * You have a hard time breathing or pain in your chest. * You have a headache that does not get better after medicine. * You have nausea that does not get better with medication. * You have blood in urine, stool, gums or any other area. * Your vision becomes blurry. * You have a rash. * You have signs of infection such as cough, burning with urination. * Your pain medication is not helping with your pain. * You feel too bad to get out of bed or your wheelchair all day. * Call the doctor???s office at on weekdays, between 8:45am and 4:30pm if you have any questions or concerns. * If you need to talk with a doctor on the weekend call . Diet: * Eat 4-6 small meals instead of 3 large meals each day. * Choose foods high in protein. Some high protein foods are: beans, cheese, cottage cheese, chicken, eggs, ice cream, nuts, peanut butter, tofu, turkey, and yogurt. * Drink at least 4-6cups of water each day. * Drinking a lot of water will keep you from feeling too dry and flush the chemo out of your body. * Avoid drinking caffeine and alcohol. Activity: * Continue your daily activities as best as you can. * Rest when you are tired. * Discuss your plans to go back to work or school with your physician. Continue augmentin 875-125mg q8h and flagyl 500mg two times daily antibiotics (10/03-indefinitely) for colonic microperforation and bactrim (double strength 1 tab q12h until 10/06) for treatment of ESBL UTI. For the GI: Follow up with GI specialists, they will call you to schedule an appointment. However if you do not hear from them in a week, please call them to get an appointment set up. An MRI to lookat your intestines was ordered for outpatient for their evaluation and workup of inflammatory boweldisease. For your pelvic mass, follow up with Dr. Rhodes in 3 weeks, and be sure to get your CT imaging done that was ordered prior to it. documented in this encounter Medications at Time of Discharge losartan (COZAAR) 25 mg tablet Take 1 tablet (25 mg total) by mouth daily 07/31/[address] (PROTONIX) 40 mg EC tablet Take 1 tablet (40 mg total) by mouth daily 09/30/2023 sulfamethoxazole- trimethoprim (BACTRIM DS) 800-160 mg per tabletIndications :Urinary Tract/Genitourina ry Infection,ESBL Take 1 tablet (160 mg of trimethoprim total) by mouth 2 (two) times a day for 6 doses 6 tablet 10/04/2023 4 acetaminophen 500 mg capsule Take 2 capsules (1,000 mg total) by mouth every 6 (six) hours as needed for pain 30 tablet 10/04/2023 4 amoxicillin-clavu lanate (AUGMENTIN) 875-125 mg per tabletIndications :Abdominal/Pelvic Infection Take 1 tablet (875 mg of amoxicillin total) by mouth 2 (two) times a day 60 tablet 3 10/04/2023 4 ferrous sulfate 325 mg (65 mg of elemental iron) tablet Take 1 tablet (325 mg total) by mouth daily with breakfast 30 tablet 11 10/04/2023 4 mesalamine (CANASA) 1,000 mg suppository 1 suppository (1,000 mg total) 08/16/2023 4 metFORMIN (GLUCOPHAGE) 500 mg tablet Take 1 tablet (500 mg total) by mouth daily with breakfast 07/16/2023 4 metroNIDAZOLE (FLAGYL) 500 mg tabletIndications :Abdominal/Pelvic Infection Take 1 tablet (500 mg total) by mouth 2 (two) times a day 60 tablet 1 10/04/2023 4 triamcinolone (KENALOG) 0.1 % paste 08/01/2023 4 documented as of this encounter Ordered Prescriptions Prescription Sig Dispense Quantity Refills Last Filled Start Date End Date sulfamethoxazole- trimethoprim (BACTRIM DS) 800-160 mg per tabletIndications :Urinary Tract/Genitourina ry Infection,ESBL Take 1 tablet (160 mg of trimethoprim total) by mouth 2 (two) times a day for 6 doses 6 tablet 10/04/2023 4 metroNIDAZOLE (FLAGYL) 500 mg tabletIndications :Abdominal/Pelvic Infection Take 1 tablet (500 mg total) by mouth 2 (two) times a day 60 tablet 1 10/04/2023 4 amoxicillin-clavu lanate (AUGMENTIN) 875-125 mg per tabletIndications :Abdominal/Pelvic Infection Take 1 tablet (875 mg of amoxicillin total) by mouth 2 (two) times a day 60 tablet 3 10/04/2023 4 acetaminophen 500 mg capsule Take 2 capsules (1,000 mg total) by mouth every 6 (six) hours as needed for pain 30 tablet 10/04/2023 4 ferrous sulfate 325 mg (65 mg of elemental iron) tablet Take 1 tablet (325 mg total) by mouth daily with breakfast 30 tablet 11 10/04/2023 4 metroNIDAZOLE (FLAGYL) 500 mg tabletIndications :Abdominal/Pelvic Infection Take 1 tablet (500 mg total) by mouth 2 (two) times a day 60 tablet 2 10/04/2023 4 amoxicillin-clavu lanate (AUGMENTIN) 875-125 mg per tabletIndications :Abdominal/Pelvic Infection Take 1 tablet (875 mg of amoxicillin total) by mouth 2 (two) times a day 60 tablet 3 10/04/2023 4 documented in this encounter Discharge Disposition Disposition Code Departure Means Destination Comment s Discharge to home or self care documented in this encounter Progress Notes * Earlene Germain MD - 10/04/2023 7:26 AM CDT [facility] Oncology Daily Progress Farhana Russo is a 63 y.o. with new pelvic mass who was admitted on 10/01 for workup of suspected colonic microperforation. Subjective Interval History: - colorectal surgery saw patient 10/02, gave abx recommendations for microperf --> no acute surgical intervention at this time, recommended GI c/s for IBD workup, & wait at least 4 wks before operating on pelvic mass - GI saw patient, recommended MRE, but all workup from their standpoint would be outpatient Subjectively - pt reports doing well this am, slept well; no pain, n/v. Did have a couple of BMs and thus did not get much rest. Wondering when the MRE will be done. Objective Vitals: afebrile, VS WNL Temp: [36.5 ??C (97.7 ??F)-37.3 ??C (99.1 ??F)] 37.3 ??C (99.1 ??F) Pulse: [79-101] 101 Resp: [16-18] 18 BP: (129-162)/(66-76) 162/76 Intake/Output: Intake/Output Summary (Last 24 hours) at 10/03/20232120 Last data filed at 10/03/20231929 Gross per 24 hour Intake 2239 ml Output 600 ml Net 1639 ml By 8 hour Shift: 300,x2/300,x1/470 Stool x10-- day RN 10/02 reported mucoid discharge when collecting stool cx Physical Exam: General: NAD, mood appropriate Pulmonary: non-labored Cardiovascular: Regular rate Abdomen: Soft, non tender to palpation, + BS, mildly tympanic in upper quadrants Extremities: Lower extremities warm, well prefused; without edema Recent Labs Lab Units 10/03/23 0434 10/03/23 0011 10/02/23 1637 WBC K/cumm -- -- 8.5 HEMOGLOBIN g/dL -- -- 8.1* HEMATOCRIT % -- -- 25.9* PLATELETS K/cumm -- -- 275 NEUTROS ABS K/cumm -- -- 6.5 SODIUM mmol/L -- -- 136 POTASSIUM PLASMA mmol/L -- -- 3.1* CHLORIDE mmol/L -- -- 99 CO2 mmol/L -- -- 27 ANIONGAP mmol/L -- -- 10 GLUCOSE mg/dL -- -- 80 POC GLUCOSE MONITOR mg/dL 120 130 -- BUN SERUM mg/dL -- -- 9 CREATININE mg/dL -- -- 0.94 CALCIUM mg/dL -- -- 9.2 ALBUMIN g/dL -- -- 3.9 ALK PHOS Units/L -- -- 67 ALT Units/L -- -- 6* AST Units/L -- -- 16 BILIRUBIN TOTAL mg/dL -- -- 0.4 MAGNESIUM mg/dL -- -- 1.6 PHOSPHORUS PLASMA mg/dL -- -- 1.4* Imaging: CT Chest Abdomen Pelvis W Contrast Narrative: EXAMINATION: Computed tomography of the chest, abdomen and pelvis with intravenous contrast HISTORY: Weight loss. Evaluate for diverticular perforation. TECHNIQUE: Transaxial computed tomographic images of the chest, abdomen and pelvis were obtained with intravenous contrast according to the standard protocol after the uneventful administration of 69 mL Opti-Ray 350 intravenous contrast. COMPARISON: 09/24/2023 FINDINGS: Chest: Mild bibasilar atelectasis with a new small left and trace right. Pleural effusion. No pulmonary consolidation, pneumothorax or pleural effusion. Heterogeneous right thyroid gland. No supraclavicular, mediastinal, or axillary lymphadenopathy. Imaged heart is normal in size without pericardial effusion. Moderate coronary artery atherosclerosis. Abdomen/Pelvis: Hypoattenuating hepatic segment 8 dome lesion likely represents a simple cyst and is unchanged additional hypoattenuating hepatic and segment 4 lesion measures 2.4 x 2.0 cm (series 2 image 139), new from 08/26/2023. Cholecystectomy. Spleen, pancreas, renal glands are normal. Kidneys enhance symmetrically without hydronephrosis or nephrolithiasis. Bladder is normal. There is a large cystic mass within the pelvis measuring 13 x 17 x 13 cm. This appears to originate from the right ovary. Uterus present. The sigmoid and descending colon is markedly thick-walled and edematous with surrounding fat stranding, slightly decreased from CT 09/24/2023. There is a small likely extraluminal as site of microperforation seen on series 2 image 192 with internal focus of air measuring 1.7 x 1.7 cm, previously 2.6 x 2.8 cm. No organized, drainable fluid collection. There is new small volume ascites throughout the abdomen. Distal esophagus and stomach are normal. The aorta is normal in course and caliber without aneurysmal dilatation. No suspicious abdominal or pelvic lymphadenopathy. No aggressive osseous lesion. Impression: 1. Decreased mural thickening and stranding of the sigmoid and descending colon consistent with diverticulitis with an area of microperforation measuring up to 1.7 cm, previously 2.6 cm. 2. Unchanged size of a large cystic mass in the pelvis measuring up to 17 cm, likely right ovarian in origin and concerning for malignancy. 3. Hypoattenuating 2.4 cm area in hepatic segment IVb is favored to represent change from recent cholecystectomy. 4. New moderate volume ascites and small bilateral pleural effusions. Dictated by: Olivia Reynoso MD The radiology attending physician has personally reviewed this study, and had reviewed and/or edited this written report and agrees with it. Electronically signed by: Familia Jimenez M.D. CT Body Outside Consult Narrative: EXAMINATION: CHANGE CONSULT ON OUTSIDE IMAGES TO REFERENCE IMAGES Impression: This study was initially nominated as a consult on outside images via Outside Image Sharing Service. However, a consult was not performed because a more recent CT of the chest, abdomen pelvis was performed on 10/02/2023 at [facility] (accession # [id number]) for which these images obtained 09/24/2023 will serve as reference. Accordingly, there will be no separate report of this study generated by a [facility] Radiologist. Electronically signed by: King Harper MD, PHD Farhana Russo is a 63 y.o. with new pelvic mass who was admitted for workup of possible colonic microperforation. Plan No problems updated. #abd pain #GI history - pt w/ hx of colitis and UC diagnosed in 2022, taking mesalamine suppository daily. Follows w/ - 10/01 rectal exam in clinic w/ gelatinous discolored rectal discharge - diarrhea 6-7x/daily, occasional BRBPR - presented to OSH w/ abd pain, fevers last month --> cholecystectomy - readmitted to OSH w/ diverticulitis & imaging concerning for microperf and colitis, managed medically w/ ceptra - Vitals, PE stable on admission - lactate wnl @ 1.3, Hgb stable, WBC 8.5 - 08/25 CT A/P from OSH 08/25 with thickened wall of rectum, sigmoid and descending colon which may indicate colitis vs diverticulitis, no abscess formation seen - 10/01 CTAP: Decreased mural thickening and stranding of the sigmoid and descending colon consistent with diverticulitis with an area of microperforation measuring up to 1.7 cm, previously 2.6 cm. Unchanged size of a large cystic mass in the pelvis measuring up to 17 cm, likely right ovarian in origin and concerning for malignancy. Hypoattenuating 2.4 cm area in hepatic segment IVb, new from 09/05/2023 but decreased from 09/24/2023. This may be secondary to recent cholecystectomy or developing hepatic abscess in the setting of known diverticulitis. New moderate volume ascites and small bilateralpleural effusions. - colorectal surgery saw patient 10/02, gave abx recommendations for microperf --> no acute surgical intervention at this time, recommended GI c/s for IBD workup, & wait at least 4 wks before operating on pelvic mass - GI saw patient, recommended MRE, but all workup from their standpoint would be outpatient PLAN: - f/u BCx - c. Diff neg, f/u stool cultures/O&P - on zosyn --> transition to augmentin today 10/03 - continue mesalamine enemas per GI - MRE to evaluate small bowel not yet scheduled, plans to receive outpatient - pt to receive colonoscopy pending time of pelvic surgery per GI - GI plans to f/u w/ pt outpatient as symptoms not currently optimized #new pelvic mass - 09/07 Accounts Payable Lead US at OSH w/ 12 x 11.2 x 15.1 cm complex cystic lesion in R pelvis with several thin andthickened internal septations and hypoechoic solid components, favors ovarian neoplasm, more likelybenign cystadenoma rather than malignant cystadenocarcinoma; no internal doppler flow noted at - CEA 3.2, CA19-9 9.4, CA-125 104 - AFP, b-HCG, LDH wnl PLAN: - f/u tumor markers - inhibin A&B - per colorectal, wait 4 at least weeks until surgical intervention - care per Dr. Rhodes #hx of UTI with ESBL - per OSH records, was diagnosed with UTI with ESBL, discharged 09/29 on bactrim - currently denies urinary symptoms - UA on admission w/ 2+ leuk est, UCx pending PLAN: - f/u UCx results - continue bactrim 160mg BID to complete course until 10/05 (per OSH) #Anemia - OSH Hgb 7.6 in 09/29, FOB positive, s/p EGD, s/p iron infusion - Hgb 8.1 on admission - Iron profile w/ low iron, low TIBC - ferritin elevated PLAN: - pattern consistent w/ AOCD - continue home ferrous sulfate #T2DM - A1c 5.6 on admission - managed on metformin - order for SSI while inpatient #HTN - holding home losartan #Nutrition Severity: MODERATE #Fluid and Electrolytes: -Replete electrolytes PRN #Pain Secondary to Malignancy: None Code Status: Full Code Earlene Germain MD 10/03/2023 PGY-1 Resident Physician Department of Obstetrics & Gynecology Cosigned by Eileen Saxena MD at 10/04/2023 8:10 AM CDT Associated attestation - Eileen Saxena MD - 10/04/2023 8:10 AM CDT I have seen and examined the patient on 10/04/23. I agree with the findings and plan of care as documented in the resident's/fellow's note. - Colorectal surgery saw patient 10/02, gave abx recommendations for microperf --> no acute surgical intervention at this time, recommended GI c/s for IBD workup, & wait at least 4 wks before operating on pelvic mass - GI saw patient, recommended MRE, but all workup from their standpoint would be outpatient - Will ensure appropriate follow up with GI / GynOnc as outpatient - CT A/P in 3 weeks before follow up with Dr Rhodes - Mildred diff negative; Stool O&P pending - ESBL E coli UTI--> Bactrim Eileen Saxena MD Division of Gynecologic Oncology * Eileen Saxena MD - 10/03/2023 6:15 AM CDT TROUBLE LOCATER Oncology Daily Progress Farhana Russo is a 63 y.o. with new pelvic mass who was admitted on 10/01 for workup of suspected colonic microperforation. Subjective Interval History: - CTAP obtained yesterday; revealed diverticulitis with area of microperforation measuring up to 1.7cm, decreased from prior; unchanged size of pelvic mass; hypoattenuating 2.4 cm of hepatic segment,decreased from prior; mod volume ascites and small bilateral pleural effusions - colorectal surgery consulted, rec'd initiating zosyn - repleted K, Mg, phod - Ca 125 104 Subjectively - pt reports doing well this am, slept well; no pain, n/v Objective Vitals: afebrile, VS WNL Temp: [36.7 ??C (98 ??F)-37.1 ??C (98.8 ??F)] 36.7 ??C (98.1 ??F) Pulse: [83-96] 83 Resp: [16-17] 16 BP: (141-154)/(65-76) 154/76 Intake/Output: Intake/Output Summary (Last 24 hours) at 10/03/2023 0540 Last data filed at 10/03/2023 0510 Gross per 24 hour Intake 0 ml Output 100 ml Net -100 ml By 8 hour Shift: --/2x/100,x1 Stool x4 Physical Exam: General: NAD, mood appropriate Pulmonary: non-labored Cardiovascular: Regular rate Abdomen: Soft, non tender to palpation, + BS, mildly tympanic Extremities: Lower extremities warm, well prefused; without edema Recent Labs Lab Units 10/03/23 0434 10/03/23 0011 10/02/23 1637 WBC K/cumm -- -- 8.5 HEMOGLOBIN g/dL -- -- 8.1* HEMATOCRIT % -- -- 25.9* PLATELETS K/cumm -- -- 275 NEUTROS ABS K/cumm -- -- 6.5 SODIUM mmol/L -- -- 136 POTASSIUM PLASMA mmol/L -- -- 3.1* CHLORIDE mmol/L -- -- 99 CO2 mmol/L -- -- 27 ANIONGAP mmol/L -- -- 10 GLUCOSE mg/dL -- -- 80 POC GLUCOSE MONITOR mg/dL 120 130 -- BUN SERUM mg/dL -- -- 9 CREATININE mg/dL -- -- 0.94 CALCIUM mg/dL -- -- 9.2 ALBUMIN g/dL -- -- 3.9 ALK PHOS Units/L -- -- 67 ALT Units/L -- -- 6* AST Units/L -- -- 16 BILIRUBIN TOTAL mg/dL -- -- 0.4 MAGNESIUM mg/dL -- -- 1.6 PHOSPHORUS PLASMA mg/dL -- -- 1.4* Imaging: CT Body Outside Consult Narrative: EXAMINATION: CHANGE CONSULT ON OUTSIDE IMAGES TO REFERENCE IMAGES Impression: This study was initially nominated as a consult on outside images via Outside Image Sharing Service. However, a consult was not performed because a more recent CT of the chest, abdomen pelvis was performed on 10/02/2023 at [facility] (accession # [id number]) for which these images obtained 09/24/2023 will serve as reference. Accordingly, there will be no separate report of this study generated by a [facility] Radiologist. Electronically signed by: King Harper MD, PHD Farhana Russo is a 63 y.o. with new pelvic mass who was admitted for workup of possible colonic microperforation. Plan No problems updated. #abd pain #GI history - pt w/ hx of colitis and UC diagnosed in 2022, taking mesalamine suppository daily. Follows w/ - 10/01 rectal exam in clinic w/ gelatinous discolored rectal discharge - diarrhea 6-7x/daily, occasional BRBPR - presented to OSH w/ abd pain, fevers last month --> cholecystectomy - readmitted to OSH w/ diverticulitis & imaging concerning for microperf and colitis, managed medically w/ ceptra - Vitals, PE stable on admission - lactate wnl @ 1.3, Hgb stable, WBC 8.5 - 08/25 CT A/P from OSH 08/25 with thickened wall of rectum, sigmoid and descending colon which may indicate colitis vs diverticulitis, no abscess formation seen - 10/01 CTAP: Decreased mural thickening and stranding of the sigmoid and descending colon consistent with diverticulitis with an area of microperforation measuring up to 1.7 cm, previously 2.6 cm. Unchanged size of a large cystic mass in the pelvis measuring up to 17 cm, likely right ovarian in origin and concerning for malignancy. Hypoattenuating 2.4 cm area in hepatic segment IVb, new from 09/05/2023 but decreased from 09/24/2023. This may be secondary to recent cholecystectomy or developing hepatic abscess in the setting of known diverticulitis. New moderate volume ascites and small bilateralpleural effusions. PLAN: - colorectal surgery consult; recommended initiating Zosyn, plans to see pt today - made NPO@[place] for possible procedure - f/u BCx - holding mesalamine enemas #new pelvic mass - 09/07 Accounts Payable Lead US at OSH w/ 12 x 11.2 x 15.1 cm complex cystic lesion in R pelvis with several thin andthickened internal septations and hypoechoic solid components, favors ovarian neoplasm, more likelybenign cystadenoma rather than malignant cystadenocarcinoma; no internal doppler flow noted at - CEA 3.2, CA19-9 9.4, CA-125 104 - AFP, b-HCG, LDH wnl PLAN: - f/u tumor markers - inhibin A&B - care by Dr. Rhodes #hx of UTI with ESBL - per OSH records, was diagnosed with UTI with ESBL, discharged 09/29 on bactrim - currently denies urinary symptoms PLAN: - f/u UA --> UCx obtained on admission - continue bactrim 160mg BID to complete course until 10/05 #Anemia - OSH Hgb 7.6 in 09/29, FOB positive, s/p EGD, s/p iron infusion - Hgb 8.1 on admission - Iron profile w/ low iron, low TIBC PLAN: - continue home ferrous sulfate #T2DM - managed on metformin - order for SSI while inpatient - obtain A1C at next lab check #HTN - holding home losartan #Nutrition Severity: MODERATE #Fluid and Electrolytes: -Replete electrolytes PRN #Pain Secondary to Malignancy: None Code Status: Full Code Earlene Germain MD 10/03/23, 5:40 AM // Vitals: 10/03/23 0435 BP: 154/76 Pulse: 83 Resp: 16 Temp: 36.7 ??C (98.1 ??F) SpO2: 99% Lab Results Component Value Date WBC 8.5 10/02/2023 HGB 8.1 (L) 10/02/2023 HCT 25.9 (L) 10/02/2023 MCV 81.4 10/02/2023 LABPLAT 275 10/02/2023 Lab Results Component Value Date CEA 3.2 10/02/2023 CA125 104.0 (H) 10/02/2023 CA199 9.4 10/02/2023 CA125 was previously 29. May be currently elevated with colitis. Mass also previously characterized on ultrasound and appears overall benign. Appreciate Colorectal surgery consult and expertise. No acute surgical intervention of mass from GynOnc perspective at this time in the setting of microperforation. Eileen Saxena MD Division of Gynecologic Oncology documented in this encounter H&P Notes * Earlene Germain MD - 10/02/2023 1:05 PM CDT TROUBLE LOCATER Oncology Admission Chief Complaint: abdominal pain requiring multiple hospitalizations over last month, fevers, rectaldischarge HPI: Farhana Russo is a 63 y.o. who was seen in Dr. Rhodes's clinic today 10/01 and now being admitted for new pelvic mass and suspected colonic microperforation. . Of note, reports she was diagnosed with UC in 2022 when her PCP drained some kind of rectal abscess . Patient treated with mesalamine only. Subsequent colonoscopy same year suggestive of UC (rectal and sigmoid inflammation, biopsy with colitis and granulomas). Currently following with Dr. Miller, treating with mesalamine. She has had diarrhea 6-7x daily for the past year (occasionally bloody). She has lost 30-40 pounds in the past year 2/2 decreased appetite and abdominal fullness. She reports while at work in August, she began to have abdominal pain, fevers, and vigorating chills for which she presented to the ED. CT scan performed at this hospital notable for large pelvic mass (12 x 11.2 x 15.1 cm) gall stones, urinary stones, thickened bowel/bladder, possible diverticulitis,possible cholecystitis. Patient found to have acute cholecystectomy and received lap balaji with improvement of abdominal pain and was discharged after 5-6 days. She was re-admitted 09/24-09/30/23 for diarrhea and weakness, and found to have sigmoid colitis and diverticulitis with microperforation w/o free air to be treated w/ ceptra until 10/06. Also noted to have anemia w/ Hgb 7.6, treated with panto prazole and given blood trnasfusion. Lastly, noted to have a UTI with ESBL treated with bactrim andhyponatremia which resolved. She saw Dr. Rhodes today in clinic to follow up for her pelvic mass. In clinic, was found to have grayish-yellow gelatinous rectal discharge. She was admitted to to [facility] for workup of a possible colonic microperforation vs other GI disease. On arrival to 5900, patient appears comfortable,. She denies pain. She is well oriented. She denies nausea/vomiting/fevers/chills/OAK[place]/CP/SOB. She has had poor p o intake for some time, which patient attributes to combo of decreased appetite and abdominal fullness. States her urine output has been unchanged. PMH is notable for UC (on mesalamine), HTN (losartan), DM (metformin). Cancer Staging No matching staging information was found for the patient. Oncology History No history exists. Past Medical History: Diagnosis Date Diabetes mellitus (HCC) Hypertension Past Surgical History: Procedure Laterality Date CHOLECYSTECTOMY TUBAL LIGATION TROUBLE LOCATER History: No LMP recorded. Patient is postmenopausal. Pap History: No history of abnormal pap HRT: No history of HRT use OB History Para Term AB Living 2 2 0 2 0 2 SAB IAB Ectopic Multiple Live Births 0 0 0 0 0 Obstetric Comments Twins HOME MEDICATIONS : losartan (COZAAR) 25 mg tablet mesalamine (CANASA) 1,000 mg suppository metFORMIN (GLUCOPHAGE) [address] (PROTONIX) 40 mg EC tablet sulfamethoxazole-trimethoprim (BACTRIM DS) 800-160 mg per tablet triamcinolone (KENALOG) 0.1 % paste No family history on file. Social History Tobacco Use Smoking status: Never Smokeless tobacco: Not on file Substance and Sexual Activity Drug use: Never Sexual activity: Not on file Alcohol Use: Not on file Review of Systems: Review of systems per HPI and otherwise all other systems are negative VITALS: Vitals: 10/02/23 1222 BP: 142/69 BP Location: Left arm Patient Position: Sitting Pulse: 94 Resp: 16 Temp: 36.7 ??C (98 ??F) TempSrc: Oral SpO2: 99% Weight: 147 lb 8 oz (66.9 kg) Height: 156.2 cm (5' 1.5 ) Physical Exam: General: NAD, mood appropriate Pulmonary: non-labored and clear to ausculation bilaterally Cardiovascular: Regular rate and rhythm Abdomen: Soft and non-tender, no signs of peritonitis, + distension, +BS mildly tympanic throughout Extremities: Warm and well perfused Lymphatic: not assessed GENITAL EXAM: deferred Lab/Imaging Review No results found for: CA125 No image results found. Plan Farhana Russo is a 63 y.o. with new pelvic mass who is being admitted for workup of possible colonic microperforation. Problem Abdominal Pain #abd pain #GI history - pt w/ hx of colitis and UC diagnosed in 2022, taking mesalamine suppository daily. Follows w/ - 10/01 rectal exam in clinic w/ gelatinous discolored rectal discharge - diarrhea 6-7x/daily, occasional BRBPR - presented to OSH w/ abd pain, fevers last month --> cholecystectomy - readmitted to OSH w/ diverticulitis & imaging concerning for microperf and colitis, managed medically w/ ceptra - Vitals, PE stable on admission - lactate wnl @ 1.3, Hgb stable, WBC 8.5 - 08/25 CT A/P from OSH 08/25 with thickened wall of rectum, sigmoid and descending colon which may indicate colitis vs diverticulitis, no abscess formation seen PLAN: - colorectal surgery consult - repeat CT CAP - NPO@MN for possible procedure. - continue Bactirm, f/u BCx - holding mesalamine enemas #new pelvic mass - 09/07 Accounts Payable Lead US at OSH w/ 12 x 11.2 x 15.1 cm complex cystic lesion in R pelvis with several thin andthickened internal septations and hypoechoic solid components, favors ovarian neoplasm, more likelybenign cystadenoma rather than malignant cystadenocarcinoma; no internal doppler flow noted at - CEA 3.2, CA19-9 9.4, CA-125 104 - AFP, b-HCG, LDH wnl PLAN: - f/u CTAP obtained here - f/u tumor markers, inhibin A&B - care by Dr. Rhodes #hx of UTI with ESBL - per OSH records, was diagnosed with UTI with ESBL, discharged 09/29 on bactrim - currently denies urinary symptoms PLAN: - f/u UA --> UCx obtained on admission - continue bactrim 160mg BID to complete course until 10/05 #Anemia - OSH Hgb 7.6 in 09/29, FOB positive, s/p EGD, s/p iron infusion - Hgb 8.1 on admission - Iron profile w/ low iron, low TIBC PLAN: - continue home ferrous sulfate #T2DM - managed on metformin - order for SSI while inpatient - obtain A1C at next lab check #HTN - holding home losartan #Nutrition Severity: MODERATE #Fluid and Electrolytes: -Replete electrolytes PRN #Pain Secondary to Malignancy: None #Goals of Care: Diagnosis needed Code Status: Full Code, this was not readdressed and confirmed upon admission. Patient discussed with Dr. Storm. Earlene Germain MD 241:07 PM Cosigned by Eileen Saxena MD at 10/03/2023 7:06 AM CDT Associated attestation - Eileen Saxena MD - 10/03/2023 7:06 AM CDT The resident/fellow saw and examined the patient, we discussed their findings, and I am in agreement with the plan based on the discussion with the resident/fellow. I did not personally examine the patient. documented in this encounter Procedure Notes * Raisa Thompson RN - 10/02/2023 4:12 PM CDT Vascular Access Nurse: Procedure Note Summary of treatment provided to patient today is as follows : . Bedside Procedure Time out/Checklist (Last 4 Hours) Pre-Op Checklist Row Name 10/02/23 1520 10/02/23 1222 10/02/23 1221 Patient Preparation Temp 36.8 ??C (98.2 ??F) -PT 36.7 ??C (98 ??F) -SJ -- Patient Belongings at Bedside Belongings at Bedside -- -- Clothing;Vision;Electronic devices - Patient Medications Medications brought by patient? -- -- No -SJ CV Additional Chart & Anesthesia Verification Advance Directive -- -- Not applicable - User Tran (r) = Recorded By, (t) = Taken By, (c) = Cosigned By Initials Name Wilma Pereira, RN PT [facility] V[facility] Documentation (Last 4 Hours) [facility] Additional Procedures Row Name 10/02/23 1606 Procedures Line Type Peripheral - Time in 1600 - Time out 1615 - Time Calculation (min) 15 min - Vascular Access Procedures Difficult IV start - Peripheral IV 10/02/23 22 G Anterior;Left;Proximal Forearm IV Properties Placement Date: 10/02/23 [facility] Placement Time: 1607 - Type: Angiocath - Length of Catheter: 1 in - Size (Gauge): 22 G - Location Orientation: Anterior;Left;Proximal - Location: Forearm - Site Prep: Chlorhexidine - Local Anesthetic: None - Technique: Anatomical landmarks - Verification: Able to advance catheter;Irrigates easily with normal saline;Able to cannulate vein - Inserted by: Mundo Stephenson rn [facility] Insertion attempts: 1 - Patient Tolerance: Tolerated well - Site Assessment Clean and dry - IV Line Status Single Blood return noted;Flushes easily;Saline locked - Dressing Type Transparent - Dressing Status New - User Tran (r) = Recorded By, (t) = Taken By, (c) = Cosigned By Initials Name Raisa Thompson, ABHAY Plan: Follow up: Raisa Thompson RN documented in this encounter Consult Notes * Chen Logan, RD - 10/03/2023 1:27 PM CDTAssociated Order(s): IP CONSULT TO NUTRITION SERVICES NUTRITION ASSESSMENT Nutrition Status: Patient meets criteria for moderate chronic malnutrition, reference ASPEN guidelines. Present on Admission: Yes REASON FOR ASSESSMENT: Consult/Referral - Nutrition in the setting of GI problems Encounter Date: 10/03/23 1:27 PM Admission Date: 10/02/2023 LOS: 0 days HPI: Patient is a 63 y.o. female admitted for new pelvic mass and suspected colonic microperforation. Objective Past Medical History: Diagnosis Date Diabetes mellitus (HCC) Hypertension Past Surgical History: Procedure Laterality Date CHOLECYSTECTOMY TUBAL LIGATION Social History Tobacco Use Smoking status: Never Smokeless tobacco: Not on file Substance and Sexual Activity Drug use: Never Sexual activity: Not on file Alcohol Use: Not on file MEDICATION/LAB REVIEW: Scheduled Meds: pantoprazole DR, 40 mg, oral, Daily piperacillin-tazobactam, 3.375 g, intravenous, Q6H DARIN polyethylene glycol, 17 g, oral, Daily sodium chloride 0.9%, 0.5-20 mL, intra-catheter, Q8H DARIN sodium chloride 0.9%, 5-10 mL, intra-catheter, Q12H DARIN [START ON 10/04/2023] sulfamethoxazole-trimethoprim, 160 mg of trimethoprim, oral, BID Continuous Infusions: dextrose 5% and Lactated Ringer's with potassium chloride 20 mEq/L, 150 mL/hr, Last Rate: 150 mL/hr (10/03/23 1039) sodium chloride 0.9%, 30 mL/hr, Last Rate: 30 mL/hr (10/03/23 0242) PRN Meds: acetaminophen sodium chloride 0.9% dextrose OR dextrose glucagon ondansetron ODT OR ondansetron oxyCODONE sodium chloride 0.9% sodium chloride 0.9% Recent Labs Lab Units 10/02/23 1637 SODIUM mmol/L 136 POTASSIUM PLASMA mmol/L 3.1* CHLORIDE mmol/L 99 CO2 mmol/L 27 BUN SERUM mg/dL 9 CREATININE mg/dL 0.94 [id number] mL/min/1.73 m2 67 CALCIUM mg/dL 9.2 ALBUMIN g/dL 3.9 PHOSPHORUS PLASMA mg/dL 1.4* MAGNESIUM mg/dL 1.6 Recent Labs Lab Units 10/03/23 0434 10/03/23 0011 10/02/23 1637 GLUCOSE mg/dL -- -- 80 POC GLUCOSE MONITOR mg/dL 120 130 -- ALT Date Value Ref Range Status 10/02/2023 6 (L) 7 - 45 Units/L Final AST Date Value Ref Range Status 10/02/2023 16 10 - 45 Units/L Final Alk phos Date Value Ref Range Status 10/02/2023 67 40 - 130 Units/L Final No results found for: HGBA1C , HDL , LDLCALC , CHOL , TRIG NURSING ASSESSMENT: Last BM Date: 10/03/23 Bowel Sounds (All Quadrants): Active Juliano Scale Score: 20 Skin Integrity: Surgical incision, Excoriation Vital Signs BP: 131/71 Temp: 36.9 ??C (98.4 ??F) Pulse: 91 Resp: 18 SpO2: 99 % Intake/Output Summary (Last 24 hours) at 10/03/2023 1327 Last data filed at 10/03/2023 1221 Gross per 24 hour Intake 1212 ml Output 300 ml Net 912 ml Adult Malnutrition Scoring Tool (MST) What diet do you follow at home?: regular Have You Recently Lost Weight Without Trying?: No Have you been eating poorly because of a decreased appetite?: No Malnutrition Screening Tool (MST) Score: 0 Anthropometrics Weight: 66.9 kg (147 lb 7.8 oz) Admission Weight : 66.9 kg Weight Change: 0.00 kg (-0.01 lbs) IBW/kg (Calculated) : 48.8 kg Height: 156.2 cm (5' 1.5 ) Weight in (lb) to have BMI = 25: 134.2 BMI (Calculated): 27.4 Wt Readings from Last 10 Encounters: 10/03/23 66.9 kg (147 lb 7.8 oz) 10/02/23 67.4 kg (148 lb 8 oz) ESTIMATED NEEDS: Total Kcal/kg Estimated Needs : 1672.5 Kcal/k. Type of Weight Used for Estimated Kcals: Current Total Protein Estimated Needs (gm): 80.28 Protein Needs Based on g/k.2 Type of Weight Used for Estimated Protein : Current Total Fluid Estimated Needs: 1672.5 Fluid Needs Based on : 1 ml/kcal Type of Weight Used for Estimated Fluid Needs: Current Dietary Orders (From admission, onward) Start Ordered 10/03/23 1101 Adult Diet Regular Diet effective now Question: ([facility]) Diet type Answer: Regular 10/03/23 1100 Allergies: Reviewed. IMPRESSION: Met with patient at bedside. She reported decreased PO intake and weight loss due to early satiety.Reports 20% weight loss over the past year. She has evidence of moderate loss of muscle mass and subcutaneous fat loss noted on NFPE. She doesn't like Ensure. She is willing to try CIB, Dreamsicle, and Thrive ice cream. Encouraged small frequent meals with protein at each meal. Labs reviewed and noted hypokalemia and hypophosphatemia. Medications reviewed and noted. ASPEN MALNUTRITION ASSESSMENT: Date of completion: 10/02 ASPEN/AND Malnutrition Screening: Chronic illness or injury mild/moderate Energy Intake: < 75% energy intake compared to estimated energy needs > (or equal to) 1 month Muscle Mass Loss Severity: Mild/Moderate Patient Meets Criteria for Moderate Malnutrition: Yes NUTRITION FOCUSED PHYSICAL EXAM: Completed. Subcutaneous Fat Loss Cheek Region - Buccal Fat: Flat cheeks Muscle Loss Orthodoxy Region - Temporalis Muscle: Slight depression Anterior Thigh and Patellar Region - Quadricep Muscle: Slight depression along thigh Posterior Calf Region - Gastrocnemius Muscle: Not well developed NUTRITION DIAGNOSIS: Nutrition Diagnosis 1: Protein-Calorie Malnutrition - Moderate Related to: Chronic illness/injury Evidenced by: Weight loss, Inadequate energy intake, Patient interview INTERVENTION(S): Summary: Initial assessment, Meals and snacks, Medical food supplement Replete potassium and phosphorus levels prior to PO intake Regular diet [place] Instant Breakfast Dreamsicle Thrive Encouraged small frequent meals with protein at each meal If significant electrolyte abnormalities occur with PO intake consider patient at significant risk for refeeding and will provide additional recommendations. VITAMIN RECOMMENDATIONS Thiamine: 100mg daily (PO) daily x 7 days Vitamin B6 (pyridoxine): 100mg (PO) x 5 days Folic Acid: 1mg (PO) x 7 days MVI: 1 tablet (PO) daily LAB / MONITORING RECOMMENDATIONS BMP, Magnesium, Phosphorus Q 12 hours (minimum) Decrease frequency once patient at goal oral intake x 24 hours and electrolytes stable (K+ > 3, Phos > 2, Mg >1.5) LFTS - Baseline and then daily x 3 days Baseline weight - weigh 2-3x / week ELECTROLYTE REPLETION RECOMMENDATIONS Replete electrolytes as indicated In patients with hypokalemia and hypomagnesaemia, replete Magnesium first FLUID RECOMMENDATIONS Take caution with IVF containing dextrose GOAL(S): Adequate nutrition to meet estimated needs by next assessment MONITORING/EVALUATION: Appetite, PO intake, Supplement tolerance, Weight changes Chen Logan MS, RD, CNSC, LD Cell * Yunior Crespo MD - 10/03/2023 10:32 AM CDTAssociated Order(s): IP CONSULT TO GASTROENTEROLOGY Private GI Initial Consult Chief complaint: Concern for IBD Reason for consult: c/s w/ CRS given microperforation on CT A/P > recommend GI evaluation d/t c/f UC vs Chrons Requesting provider: Accounts Payable Lead Onc HPI: This is a 63 y.o. female with a PMH of UC ( diagnosed 2022) who is admitted for new pelvic mass anddiverticulitis c/b colonic microperforation. She was admitted directly from her gynecological oncologist's office for further work up and management. GI is consulted for clarification of her diagnosis. Patient notes that she was diagnosed with UC in 2022. At the time, she had been sent to GI for a routine colonoscopy and had been found on the scope to have (rectal and sigmoid inflammation, biopsy with colitis and granulomas) . Prior to the diagnosis of IBD, she had developed a swelling in her left groin which had initially been felt to be a hernia but was subsequently determined to be an abscess. This was drained by her PCP. The patient states that at the time, there was no mention of any concern for IBD. Her bowel habits had been regular and she did not have any EIM that would suggest Crohn's. She subsequently was diagnosed with UC after her routine screening colonoscopy as outlined above and had been started on mesalamine suppositories 1000 mg. Since then, she has continued to have tenesmus with passage of mucus per rectum. Despite multiple daily trips to the bathroom, she often had passage of mucus and infrequently, minimal amounts of stool. She also developed multiple aphthous ulcers but otherwise was without other EIMs ( including joint pains, rash, episcleritis etc). She denies any significant pain or bleeding per rectum. She does note an isolated episode of a small amount of blood OR. Over the course of the past month, she developed fever, heartburn and abdominal pain and was found to have a large pelvic mass and acute cholecystitis which led to a CCY. She subsequently was readmitted at OSH for diarrhea, weakness and found to have sigmoid colitis and diverticulitis with a microperforation as well as ESBL UTI. She had been started on Septra with plans to continue until 10/06. She was also found to be anemic with hgb of 7.6 for which she underwent and EGD that per her report only showed gastritis. She was discharged home and then admitted here from her outpatient user experience designer onc apptas outlined above. IBD history: Year of diagnosis: 2022. Year symptoms began: 2022. Distribution: Proctosigmoid colitis Extraintestinal manifestations: aphthous ulcers Complications: None to date Prior treatments: Mesalamine suppository. Current treatment: Mesalamine suppository Prior surgeries: None Endoscopies: Colonoscopy 2022: Rectal and sigmoid inflammation, biopsy with colitis and granulomas) Imaging: CT CAP 10/02/23: Decreased mural thickening and stranding of the sigmoid and descending colon consistent with diverticulitis with an area of microperforation measuring up to 1.7 cm, previously 2.6 cm Past Medical History: Diagnosis Date Diabetes mellitus (HCC) Hypertension Past Surgical History: Procedure Laterality Date CHOLECYSTECTOMY TUBAL LIGATION MEDICATIONS: HOME MEDICATIONS : losartan (COZAAR) 25 mg tablet mesalamine (CANASA) 1,000 mg suppository metFORMIN (GLUCOPHAGE) [address] (PROTONIX) 40 mg EC tablet sulfamethoxazole-trimethoprim (BACTRIM DS) 800-160 mg per tablet triamcinolone (KENALOG) 0.1 % paste SCHEDULED MEDS CONTINUOUS MEDS PRN MEDS pantoprazole DR, 40 mg, oral, Daily piperacillin-tazobactam, 3.375 g, intravenous, Q6H DARIN polyethylene glycol, 17 g, oral, Daily sodium chloride 0.9%, 0.5-20 mL, intra-catheter, Q8H DARIN sodium chloride 0.9%, 5-10 mL, intra-catheter, Q12H DARIN sulfamethoxazole-trimethoprim, 160 mg of trimethoprim, oral, BID dextrose 5% and Lactated Ringer's with potassium chloride 20 mEq/L, 150 mL/hr, Last Rate: 150 mL/hr(10/03/23242) sodium chloride 0.9%, 30 mL/hr, Last Rate: 30 mL/hr (10/03/23241) acetaminophen sodium chloride 0.9% dextrose OR dextrose glucagon ondansetron ODT OR ondansetron oxyCODONE sodium chloride 0.9% sodium chloride 0.9% Medications Prior to Admission Medication Sig Dispense Refill Last Dose losartan (COZAAR) 25 mg tablet Take 1 tablet (25 mg total) by mouth daily mesalamine (CANASA) 1,000 mg suppository 1 suppository (1,000 mg total) metFORMIN (GLUCOPHAGE) 500 mg tablet Take 1 tablet (500 mg total) by mouth daily with breakfast pantoprazole DR (PROTONIX) 40 mg EC tablet Take 1 tablet (40 mg total) by mouth daily sulfamethoxazole-trimethoprim (BACTRIM DS) 800-160 mg per tablet Take by mouth 2 (two) times a day triamcinolone (KENALOG) 0.1 % paste Allergies Allergen Reactions Azithromycin Rash Social History Tobacco Use Smoking status: Never Smokeless tobacco: Not on file Substance and Sexual Activity Drug use: Never Sexual activity: Not on file Alcohol Use: Not on file No family history on file. Review of Systems: Review of systems per HPI and otherwise all other systems are negative Vitals: 24hr Min/Max: Temp Min: 36.7 ??C (98 ??F) Max: 37.1 ??C (98.8 ??F) Pulse Min: 79 Max: 94 BP Min: 141/65 Max: 154/76 Resp Min: 16 Max: 17 SpO2 Min: 99 % Max: 99 % Most Recent : Vitals: 10/03/23 0811 BP: 142/66 Pulse: 79 Resp: 16 Temp: 36.7 ??C (98.1 ??F) SpO2: 99% I/O last 2 completed shifts: In: 0 Out: 100 [Urine:100] I/O this shift: In: 900 [I.V.:900] Out: 200 [Urine:200] Objective Physical Exam: General: Well-developed F in NAD. HEENT: NC/AT. EOMI. MMM. Neck: Supple. No obvious anterior neck masses Lungs: Non labored respirations, no audible wheezes Heart: RGV Abdomen: Soft. Distended, laparoscopic scars. Rectal exam with perianal skin tag, mucus, fistula Ext/MS: No edema, cyanosis, or erythema. Good muscle strength and tone. Neuro: A&O x3. No focal deficits noted. Psych: Appears to have normal affect, mood, judgement, and insight. Skin: No obvious rashes or lesions noted. LABS: Lab Results Component Value Date WBC 8.5 10/02/2023 HGB 8.1 (L) 10/02/2023 HCT 25.9 (L) 10/02/2023 MCV 81.4 10/02/2023 LABPLAT 275 10/02/2023 Lab Results Component Value Date GLUCOSE 120 10/03/2023 CALCIUM 9.2 10/02/2023 SODIUM 136 10/02/2023 POTASSIUM 3.1 (L) 10/02/2023 CO2 27 10/02/2023 CHLORIDE 99 10/02/2023 BUNSER 9 10/02/2023 CREATININE 0.94 10/02/2023 ANIONGAP 10 10/02/2023 Lab Results Component Value Date ALT 6 (L) 10/02/2023 AST 16 10/02/2023 ALKPHOS 67 10/02/2023 BILITOT 0.4 10/02/2023 Lab Results Component Value Date INR 1.45 (H) 10/02/2023 No results found for: FERRITIN IMAGING Results for orders placed during the hospital encounter of 10/02/23 US Outside Reference Narrative EXAMINATION: Images For Reference Purposes Only Impression These images are for Reference purposes only and have not been reviewed by [facility] Radiology. There will be no report generated by a [facility] Radiologist. Results for orders placed during the hospital encounter of 10/02/23 CT Chest Abdomen Pelvis W Contrast Narrative EXAMINATION: Computed tomography of the chest, abdomen and pelvis with intravenous contrast HISTORY: Weight loss. Evaluate for diverticular perforation. TECHNIQUE: Transaxial computed tomographic images of the chest, abdomen and pelvis were obtained with intravenous contrast according to the standard protocol after the uneventful administration of 69 mL Opti-Ray 350 intravenous contrast. COMPARISON: 09/24/2023 FINDINGS: Chest: Mild bibasilar atelectasis with a new small left and trace right. Pleural effusion. No pulmonary consolidation, pneumothorax or pleural effusion. Heterogeneous right thyroid gland. No supraclavicular, mediastinal, or axillary lymphadenopathy. Imaged heart is normal in size without pericardial effusion. Moderate coronary artery atherosclerosis. Abdomen/Pelvis: Hypoattenuating hepatic segment 8 dome lesion likely represents a simple cyst and is unchanged additional hypoattenuating hepatic and segment 4 lesion measures 2.4 x 2.0 cm (series 2 image 139), new from 08/26/2023. Cholecystectomy. Spleen, pancreas, renal glands are normal. Kidneys enhance symmetrically without hydronephrosis or nephrolithiasis. Bladder is normal. There is a large cystic mass within the pelvis measuring 13 x 17 x 13 cm. This appears to originate from the right ovary. Uterus present. The sigmoid and descending colon is markedly thick-walled and edematous with surrounding fat stranding, slightly decreased from CT 09/24/2023. There is a small likely extraluminal as site of microperforation seen on series 2 image 192 with internal focus of air measuring 1.7 x 1.7 cm, previously 2.6 x 2.8 cm. No organized, drainable fluid collection. There is new small volume ascites throughout the abdomen. Distal esophagus and stomach are normal. The aorta is normal in course and caliber without aneurysmal dilatation. No suspicious abdominal or pelvic lymphadenopathy. No aggressive osseous lesion. Impression 1. Decreased mural thickening and stranding of the sigmoid and descending colon consistent with diverticulitis with an area of microperforation measuring up to 1.7 cm, previously 2.6 cm. 2. Unchanged size of a large cystic mass in the pelvis measuring up to 17 cm, likely right ovarian in origin and concerning for malignancy. 3. Hypoattenuating 2.4 cm area in hepatic segment IVb is favored to represent change from recent cholecystectomy. 4. New moderate volume ascites and small bilateral pleural effusions. Dictated by: Olivia Reynoso MD The radiology attending physician has personally reviewed this study, and had reviewed and/or edited this written report and agrees with it. Electronically signed by: Familia Jimenez M.D. Results for orders placed during the hospital encounter of 10/02/23 US Outside Reference Narrative EXAMINATION: Images For Reference Purposes Only Impression These images are for Reference purposes only and have not been reviewed by [facility] Radiology. There will be no report generated by a [facility] Radiologist. Assessment/Plan Impression: This is a 63 y.o. female with a PMH of UC ( diagnosed 2022) who is admitted for new pelvic mass anddiverticulitis c/b colonic microperforation. She has a history of proctosigmoid IBD which has been treated with mesalamine suppositories 1g daily. While she is otherwise stable, she continues to have tenesmus with mucus per rectum. The presenceof granulomas on her pathGI consulted for input regarding her IBD. Acute diverticulitis Proctosigmoid IBD Normocytic anemia Recommendations: -Check stool for C.diff, O&P, stool cultures -Check iron profile and ferritin to evaluate for etiology of anemia -Continue antibiotics for management of acute diverticulitis (please note that anaerobic coverage is needed) -Can obtain MRE to evaluate small bowel -Continue mesalamine suppositories 1 g daily -Patient has not had a high quality colonoscopy within the past year. Therefore, she will need a repeat colonoscopy, timing TBD pending timing of her pelvic surgery -Patient will need OP follow up with GI for management of her IBD as her symptoms are currently notoptimized We will continue to follow-up with you. Thank you for involving us in the care of this patient. If you have any questions, please call the private GI pager during weekdays or the [employer] GI phone during after hours and weekends. Yunior Crespo MD Cosigned by Lakeshia Correa MD at 10/06/2023 7:52 AM CDT Associated attestation - Lakeshia Correa MD - 10/06/2023 7:52 AM CDT I have seen and examined the patient on 10/02/2023. I agree with the findings and plan of care as documented in the resident's/fellow's note.. * Celina Bae MD - 10/03/2023 5:57 AM CDTAssociated Order(s): IP CONSULT TO COLORECTAL SURGERY [facility] Colorectal Surgery Consult Reason for Consult: Diverticulitis/UC Requesting Provider: Melissa Rhodes MD HPI: Farhana Russo is a 63 y.o. female with history of ulcerative colitis, DM2, and HTN who was direct admitted after clinic visit yesterday with a large pelvic mass as well as rectal discharge and diverticulitis. She was diagnosed about 1 year ago with UC after initially presenting with a rectal abscess and hasbeen treated with mesalamine suppositories over that time. She had done well other than persistent mucus discharge and some BRBPR until August when she began having abdominal pain, fevers and was admitted to the hospital and found to have a new large pelvic mass as well as gallstones and cholecystitis. She underwent lap CCK and initially improved and went home. She was at home for about a week, didn't have much of an appetite and wasn't improving and was sent back to the ER on 09/23 where she was noted on CT to have diverticulitis with a microperforation as well as a UTI. She was on Bactrim and had improved and was discharged on 09/29. She was seen in clinic yesterday for the pelvic mass and wasdirect admitted due to concern she hadn't improved and continues to have calloway/yellow discharge fromher rectum. She states she really isn't having pain anymore other than occasional right flank pain. She states she has no appetite, but is not nauseous and has no vomiting. Her BMs are becoming more normal, but she continues to have this rectal discharge which has been present before her current problems started. They did an EGD at the OSH last week which was reportedly normal. Here, she is AF, HDS on room air. Labs show WBC of 8.[address] here shows a thickened sigmoid colon with a small microperforation that is decreased in size from CT on 09/23. She also has a large pelvic mass presumed to be from the Ovary, a simple liver cyst as well as another possible collection at segment 4 of the liver. Of note, her rectum does not appear to be significantly inflamed on CT, only the sigmoid and descending colon which are improved from prior. Past Medical History: Diagnosis Date Diabetes mellitus (HCC) Hypertension Past Surgical History: Procedure Laterality Date CHOLECYSTECTOMY TUBAL LIGATION Medications Prior to Admission Medication Sig Dispense Refill Last Dose losartan (COZAAR) 25 mg tablet Take 1 tablet (25 mg total) by mouth daily mesalamine (CANASA) 1,000 mg suppository 1 suppository (1,000 mg total) metFORMIN (GLUCOPHAGE) 500 mg tablet Take 1 tablet (500 mg total) by mouth daily with breakfast pantoprazole DR (PROTONIX) 40 mg EC tablet Take 1 tablet (40 mg total) by mouth daily sulfamethoxazole-trimethoprim (BACTRIM DS) 800-160 mg per tablet Take by mouth 2 (two) times a day triamcinolone (KENALOG) 0.1 % paste Allergies Allergen Reactions Azithromycin Rash Social History Tobacco Use Smoking status: Never Smokeless tobacco: Not on file Substance and Sexual Activity Drug use: Never Sexual activity: Not on file Alcohol Use: Not on file No family history on file. Review of Systems: A 10 system ROS was normal other than the issues noted in the HPI. Physical exam: Vitals: Vitals: 10/03/23 0435 BP: 154/76 Pulse: 83 Resp: 16 Temp: 36.7 ??C (98.1 ??F) SpO2: 99% 24hr Min/Max: Temp Min: 36.7 ??C (98 ??F) Max: 37.1 ??C (98.8 ??F) Pulse Min: 83 Max: 96 BP Min: 141/65 Max: 154/76 Resp Min: 16 Max: 17 SpO2 Min: 99 % Max: 100 % Body mass index is 27.42 kg/m??. General: Well developed, obese Psych: alert and calm HEENT: normocephalic/atraumatic, anicteric Pulm: clear to ausultation bilaterally Cardiac: regular rate and rhythm without murmur, radial and posterior tibial pulses intact and equal bilaterally. GI: abd soft, mild suprapubic tenderness, distended Neuro: ambulatory, non-focal Skin: warm and dry Musculoskeletal: no deformities Lab/Radiology/Diagnostic Review: Laboratory review: Lab results in the last 12 hours: Recent Results (from the past 12 hour(s)) Check Sample Collection Time: 10/02/23 8:34 PM Result Value Ref Range ABO Rh O Positive POCT glucose Collection Time: 10/03/23 12:11 AM Result Value Ref Range Glucose, POC 130 70 - 199 mg/dL POCT glucose Collection Time: 10/03/23 4:34 AM Result Value Ref Range Glucose, POC 120 70 - 199 mg/dL Result Date: 10/02/2023 Narrative: EXAMINATION: Computed tomography of the chest, abdomen and pelvis with intravenous contrast HISTORY: Weight loss. Evaluate for diverticular perforation. TECHNIQUE: Transaxial computed tomographic images of the chest, abdomen and pelvis were obtained with intravenous contrast according tothe standard protocol after the uneventful administration of 69 mL Opti-Ray 350 intravenous contrast. COMPARISON: 09/24/2023 FINDINGS: Chest: Mild bibasilar atelectasis with a new small left and trace right. Pleural effusion. No pulmonary consolidation, pneumothorax or pleural effusion. Heterogeneousright thyroid gland. No supraclavicular, mediastinal, or axillary lymphadenopathy. Imaged heart is normal in size without pericardial effusion. Moderate coronary artery atherosclerosis. Abdomen/Pelvis: Hypoattenuating hepatic segment 8 dome lesion likely represents a simple cyst and is unchanged additional hypoattenuating hepatic and segment 4 lesion measures 2.4 x 2.0 cm (series 2 image 139), new from 08/26/2023. Cholecystectomy. Spleen, pancreas, renal glands are normal. Kidneys enhance symmetrically without hydronephrosis or nephrolithiasis. Bladder is normal. There is a large cystic mass within the pelvis measuring 13 x 17 x 13 cm. This appears to originate from the right ovary. Uterus present. The sigmoid and descending colon is markedly thick-walled and edematous with surrounding fat stranding, slightly decreased from CT 09/24/2023. There is a small likely extraluminal as site of microperforation seen on series 2 image 192 with internal focus of air measuring 1.7 x 1.7 cm, previously 2.6 x 2.8 cm. No organized, drainable fluid collection. There is new small volume ascites throughout the abdomen. Distal esophagus and stomach are normal. The aorta is normal in course and caliber without aneurysmal dilatation. No suspicious abdominal or pelvic lymphadenopathy. No aggressive osseous lesion. Impression: 1. Decreased mural thickening and stranding of the sigmoid and descending colon consistent with diverticulitis with an area of microperforation measuring up to 1.7 cm, previously 2.6 cm. 2. Unchanged size of a large cystic mass in the pelvis measuring up to 17 cm, likely right ovarian in origin and concerning for malignancy. 3. Hypoattenuating 2.4 cm area in hepatic segment IVb, new from 09/05/2023 but decreased from 09/24/2023. This may be secondary to recent cholecystectomy or developing hepatic abscess in the setting of known diverticulitis. 4. New moderate volume ascites and small bilateral pleural effusions. Dictated by: Olivia Reynoso MD Assessment /Plan Principal Problem: Abdominal pain Farhana Russo is a 63 y.o. female with history of ulcerative colitis treated with mesalamine suppositories, DM2, and HTN who was direct admitted a with a large pelvic mass as well as rectal dischargeand diverticulitis with small microperforation. The sigmoid thickening and microperforation appear to be improving. Given her original presentation, she could have UC or Crohn's disease given initial presentation with rectal abscess. - No acute surgical intervention for diverticulitis - Would recommend Augmentin or Cipro/Flagyl for PO abx for diverticulitis rather than Bactrim, can continue Zosyn until ready to switch to PO - Recommend GI consult for rectal discharge and evaluation of UC vs Crohn's given initial presentation - If possible, would recommend waiting at least 4 weeks before operative intervention for her pelvic mass - Colorectal will follow peripherally Celina Bae MD The care plan above has been discussed with attending physician, Dr. Ferreira. Any changes will be communicated to the primary team. Weekdays 6AM - 6PM: CRS Consult Phone- Weekends 6AM - 6PM: Please see [employer] for covering [facility]S [place] resident Nights 6PM - 6AM: [facility]S Inpatient Consult Phone- Cosigned by Yo Ferreira MD at 10/04/2023 10:10 AM CDT Associated attestation - Yo Ferreira MD - 10/04/2023 10:10 AM CDT I have seen and examined the patient on 10/04/23. I agree with the findings and plan of care as documented in the resident's/fellow's note.. documented in this encounter Miscellaneous Notes * Plan of Care - Layton Montoya RN - 10/04/2023 11:21 AM CDT Problem: Discharge Planning Goal: Understanding discharge needs will improve Outcome: Completed Problem: Respiratory Goal: Achieves optimal ventilation and oxygenation Outcome: Completed Problem: Skin/Tissue Integrity Goal: Skin integrity remains intact Outcome: Completed Goal: Incisions, wounds, or drain sites healing without S/S of infection Outcome: Completed Problem: Gastrointestinal Goal: Maintains or returns to baseline bowel function Outcome: Completed Problem: Infection Goal: Absence of infection during hospitalization Outcome: Completed Problem: Metabolic/Fluid and Electrolytes Goal: Electrolytes maintained within normal limits Outcome: Completed Problem: Hematologic Goal: Maintains hematologic stability Outcome: Completed Problem: Fall Risk Goal: Will remain free from falls Outcome: Completed Goals: Clinical Goals for the Shift: VS, Labs, Manage pain, Monitor I & O, Remain free from falls Summary: Pt tolerated PO abx, no nausea, discharge * Plan of Care - Luz Maria Bell RN - 10/03/2023 10:45 PM CDT Problem: Discharge Planning Goal: Understanding discharge needs will improve Outcome: Progressing Problem: Respiratory Goal: Achieves optimal ventilation and oxygenation Outcome: Progressing Problem: Skin/Tissue Integrity Goal: Skin integrity remains intact Outcome: Progressing Goal: Incisions, wounds, or drain sites healing without S/S of infection Outcome: Progressing Problem: Gastrointestinal Goal: Maintains or returns to baseline bowel function Outcome: Progressing Problem: Infection Goal: Absence of infection during hospitalization Outcome: Progressing Problem: Metabolic/Fluid and Electrolytes Goal: Electrolytes maintained within normal limits Outcome: Progressing Problem: Hematologic Goal: Maintains hematologic stability Outcome: Progressing Problem: Fall Risk Goal: Will remain free from falls Outcome: Progressing Goals: Clinical Goals for the Shift: VS, Labs, Manage pain, Monitor I & O, Remain free from falls * Hospital Course - Earlene Germain MD - 10/03/2023 1:22 PM CDT Farhana Russo is a 63 y.o. F with H ulcerative colitis (dx 2022) and 15cm pelvic cyst, presentingwith abdominal distention, rectal discharge, and colonic microperforation. #Ulcerative colitis #Diverticulitis with microperforation Diagnosed with ulcerative colitis in 2022 after developing perirectal abscess/fistula with colonoscopy with sigmoid/rectal colitis and granulomas. Patient has history of sticky dawn diarrhea 6-7 times daily since 2023. Stools intermittently have dark blood or bright red blood. She follows with GI Dr. Miller at [facility]. Ulcerative colitis has been treated with home mesalamine 1000mg suppository nightly, and never needed steroids. Patient was admitted 09/23 to [place] with diverticulitis, found to have microperforation without free air, managed nonoperatively, and was discharged 09/29 on bactrim with outpatient followup. Patient was admitted 10/01 to [facility] for workup of colonic microperforation prior to management of 15cm adnexal cyst. Admission labs WBC 8.5, Hgb 8.1. Patient was stable on admission with CRP 41.8, blood cultures x2 with NG. CT CAP 10/01 (compared to 09/23 from OSH) showed decreased mural thickening and stranding of the sigmoid and descending colon consistent with d iverticulitis with an area of microperforation measuring up to 1.7 cm, previously 2.6 cm. Colorectal surgery recommended nonoperative management with zosyn (10/02-10/03) and gave recommendations for poabx upon discharge; they also recommended GI consult for IBD workup and waiting at least 4 wks before operating on pelvic mass.GI team confirmed that most of their workup for this patient would be outpatient, including initiating treatment if indicated if patient was determined to have Chron's and not US. Stool studies were collected per GI request, and they also recommended MRE.They will plan for colonoscopy pending timing of surgery for pelvic mass. Patient to continue on mesalamine and pantoprazole on discharge. Patient to follow up with GI outpatient; GI contacted by user experience designer onc team prior to discharge and they will call patient to schedule a follow up appointment. Patient was discharged on augmentin 875-125mg q8h and flagyl 500mg bid antibiotics (10/03-indefinitely) for colonic microperforation and bactrim (double strength 1 tab q12h until 10/06) for treatment of her ESBL UTI. MRE order placed for outpatient. On day of discharge, stool cultures, O&P were still pending. #Pelvic mass #Abdominal distention Patient has lost 30-40 pounds since 2022 due to decreased appetite and abdominal fullness. Pelvic cystic mass was discovered incidentally on OSH imaging in 08/2023, US suggesting benign, tumor [id number] 29, Ca19-9 4, CEA 1. Last menstrual period was in her early 50s. On admission, denied vaginalbleeding or abdominal pain. No family history of cancer or bleeding. Patient was referred to Dr. Rhodes for workup of adnexal cyst, but surgical management was deferred pending resolution of colonicmicroperforation (see other problem). On admission to [facility] 10[facility], physical exam showed moderate abdominal distention without tenderness. Admission CA125 104, likely secondary to peritoneal irritation in setting of bowel microperforation. CT CAP 10/01 with unchanged 17cm pelvic cystic mass, likely right ovarian in origin, read as concerning for malignancy. New moderate volume ascites and small bilateral pleural effusions. Inhibin A and B were pending on discharge. Per colorectal surgery, will wait 4 weeks prior to surgery for pelvic mass. Pt to follow up with Dr. Rhodes in 3 weeks, and receive CTAP prior. #Anemia OSH Hgb 7.6 on 09/29, fecal occult blood positive, received EGD and iron infusion with discharge on home ferrous sulfate 325 mg. Admission Hgb 8.1 on 10/01. Iron profile obtained this admission w/ low iron, low TIBC, and ferritin elevated; consistent w/ anemia of chronic disease. #UTI with ESBL Per OSH records, was diagnosed with UTI with ESBL, discharged 09/29 on bactrim with 12 doses (see media for susceptibilities). On [facility] admission denied urinary symptoms. Collected UA and urine culture,which resulted as clinically insignificant growth. UTI treatment was covered by zosyn as above then transitioned back to bactrim as above. #Hypertension Held home losartan 25mg daily, to restart on discharge with PCP follow-up. #Diabetes mellitus Patient reported diabetes controlled. Held home metformin 500mg qAM, to restart on discharge with PCP follow-up. #Acute Pain 2/2 Malignancy Denied pain during admission. * Initial Assessments - Valeri Angel RN - 10/03/2023 9:27 AM CDT CM Initial Assessment Interview Note Information Obtained From: Patient (per phone interview) (10/03/23920) Admission Source: clinic Impression: 63 y.o admitted with new pelvic mass and suspected colonic microperforation. Abd pain, fever and rectal discharge over the last month Plan Includes: NPO for possibe colonoscopy, gi consult, iv antx, colorectal consult, pain control Primary Source of Transportation: spouse Does the patient need discharge transport arranged?: No (10/03/23920) Health Insurance Coverage: [facility] Prescription Coverage: yes Pharmacy: [facility] [place] [id number] [id number] [address] [facility] [id number] Primary Care Provider: Bethany Arriola MD Prior to Admission: Functional Status: Independent with ADLs Primary Caregiver: Self Support System: Spouse/Significant Other (aleksandar [phone]) Home Care Services: No Outpatient Services: No Durable Medical Equipment: None Living Arrangements: Spouse/significant other (aleksandar [phone]) Type of Residence: Private residence (10/03/23920) SDOH: Transportation: Financial Resource: Housing: Utilities: Social Connections: Food Insecurity: Alcohol Use: PHQ Screening Potential discharge needs include: none indicated at this time OP Services: Dialysis: Behavioral Health Services: Behavioral Health Services: No (10/03/23920) Anticipated Level of Care: Anticipated discharge level of care: Private residence Pt/Family agrees with Anticipated Level of Care: Yes (10/03/23920) Patient expects to be Discharged to: Private residence, (10/03/23920) Additional Information: 10/05/23 Patient's Identified Problem/Goal Problem: Ensure acute medical [...] Collaboration with Patient, Provider, Direct Care Nurse, Plywood Matcher, and other members of theHealth Care Team to assure needed interventions completed. 2. Return patient to optimal level of self-care post discharge. 3. Student Loan Counselor will follow for Discharge Planning - interventions as needed 4. Anticipated level of care at discharge 5. Planned Discharge Disposition Valeri Angel RN * Plan of Care - Charlene Tyler RN - 10/03/2023 9:10 AM CDT Goals: Clinical Goals for the Shift: IV antibiotics, monitor BMs, vitals Summary: Problem: Discharge Planning Goal: Understanding discharge needs will improve Outcome: Progressing Flowsheets (Taken 10/03/2023 0909) Understanding of discharge needs will improve: Identify discharge barriers Problem: Skin/Tissue Integrity Goal: Incisions, wounds, or drain sites healing without S/S of infection Outcome: Progressing Flowsheets (Taken 10/03/2023908) Incision(s), Wound(s) or Drain Site(s) healing without S/S of infection: Assess and document skin integrity Problem: Gastrointestinal Goal: Maintains or returns to baseline bowel function Outcome: Progressing Flowsheets (Taken 10/03/2023908) Maintains or returns to baseline bowel function: Assess bowel function, evaluate bowel sounds and signs of abdominal distention Monitor amount, characteristics and/or frequency of stool Problem: Infection Goal: Absence of infection during hospitalization Outcome: Progressing Flowsheets (Taken 10/03/2023908) Absence of infection during hospitalization: Assess and monitor for signs and symptoms of infection Problem: Metabolic/Fluid and Electrolytes Goal: Electrolytes maintained within normal limits Outcome: Progressing Flowsheets (Taken 10/03/2023908) Electrolytes maintained within normal limits: Provide fluid volume management Problem: Fall Risk Goal: Will remain free from falls Outcome: Progressing Flowsheets (Taken 10/03/2023908) Will remain free from falls: Assess risk factors for falls * Medical Student - Silvia Maurer - 10/03/2023 5:34 AM CDT TROUBLE LOCATER Oncology Daily Progress Farhana Russo is a 63 y.o. F with PMH ulcerative colitis (dx 2022) and 15cm pelvic cyst, presentingwith abdominal distention, rectal discharge, and colonic microperforation. Subjective Interval History: - CRS requested re-consult in AM, rec CT AP - CT A/P w/ microperf. CRS rec Zosyn, ordered. - Repleted mag. CA125 104 Subjectively: - no pain, no swelling, still sticky dawn BM, no f/c/n/v Objective Vitals: Afebrile, HDS Temp: [36.7 ??C (98 ??F)-37.1 ??C (98.8 ??F)] 36.7 ??C (98.1 ??F) Pulse: [83-96] 83 Resp: [16-17] 16 BP: (141-154)/(65-76) 154/76 Intake/Output: Intake/Output Summary (Last 24 hours) at 10/03/2023 0534 Last data filed at 10/03/2023 0510 Gross per 24 hour Intake 0 ml Output 100 ml Net -100 ml By 8 hour: - / 2x / 1x and 100 Stool: - / 3x / 1x Physical Exam: General: NAD, mood appropriate Pulmonary: non-labored Cardiovascular: Regular rate, no m/r/g Abdomen: soft nontender, moderate stable distention , CCK incisions c/d/i and well approximated Extremities: Lower extremities warm, well prefused; without edema Labs - Na 136, K 3.1, Cr 0.94, Mg 1.6, P 1.4, AST 16/ALT 6, AlkP 67, WBC 8.5, Hgb 8.1 (MCV 81.4), Plt 275 CA125 104 (29) Ca19-9 9.4, CEA 3.2, afp/hcg/ldh wnl, lactate 1.3 Coags PT 15.8, INR 1.45, PTT 32 CRP 41.[address] CAP: IMPRESSION: (vs OSH 09/24/23 CT) 1. Decreased mural thickening and stranding of the sigmoid and descending colon consistent with diverticulitis with an area of microperforation measuring up to 1.7 cm, previously 2.6 cm. 2. Unchanged size of a large cystic mass in the pelvis measuring up to 17 cm, likely right ovarian in origin and concerning for malignancy. 3. Hypoattenuating 2.4 cm area in hepatic segment IVb, new from 09/05/2023 but decreased from 09/24/2023. This may be secondary to recent cholecystectomy or developing hepatic abscess in the setting of known diverticulitis. 4. New moderate volume ascites and small bilateral pleural effusions. Recent Labs Lab Units 10/03/23 0434 10/03/23 0011 10/02/23 1637 WBC K/cumm -- -- 8.5 HEMOGLOBIN g/dL -- -- 8.1* HEMATOCRIT % -- -- 25.9* PLATELETS K/cumm -- -- 275 NEUTROS ABS K/cumm -- -- 6.5 SODIUM mmol/L -- -- 136 POTASSIUM PLASMA mmol/L -- -- 3.1* CHLORIDE mmol/L -- -- 99 CO2 mmol/L -- -- 27 ANIONGAP mmol/L -- -- 10 GLUCOSE mg/dL -- -- 80 POC GLUCOSE MONITOR mg/dL 120 130 -- BUN SERUM mg/dL -- -- 9 CREATININE mg/dL -- -- 0.94 CALCIUM mg/dL -- -- 9.2 ALBUMIN g/dL -- -- 3.9 ALK PHOS Units/L -- -- 67 ALT Units/L -- -- 6* AST Units/L -- -- 16 BILIRUBIN TOTAL mg/dL -- -- 0.4 MAGNESIUM mg/dL -- -- 1.6 PHOSPHORUS PLASMA mg/dL -- -- 1.4* Imaging: CT Body Outside Consult Narrative: EXAMINATION: CHANGE CONSULT ON OUTSIDE IMAGES TO REFERENCE IMAGES Impression: This study was initially nominated as a consult on outside images via Outside Image Sharing Service. However, a consult was not performed because a more recent CT of the chest, abdomen pelvis was performed on 10/02/2023 at [facility] (accession # [id number]) for which these images obtained 09/24/2023 will serve as reference. Accordingly, there will be no separate report of this study generated by a [facility] Radiologist. Electronically signed by: King Harper MD, PHD Plan Farhana Russo is a 63 y.o. F with PMH ulcerative colitis (dx 2022) and 15cm pelvic cyst, presentingwith abdominal pain, rectal discharge, and colonic microperforation. Plan: - consult CRS for microperf mgmt - consult GI for UC vs Crohns - continue zosyn for now - f/u final CT read - K, phos repletion #Pelvic mass #Abdominal distention - Lost 30-40 pounds since 2022 due to decreased appetite and abdominal fullness - LMP in early 50s, denies vaginal bleeding or abdominal pain - no fhx of cancer or bleeding - physical exam with moderate abdominal distention, no tenderness to palpation - Pelvic mass discovered incidentally on imaging in 08/2023, 15cm pelvic mass, OSH tumor markers Ca125 29, Ca19-9 4, CEA 1 - 10/01 initial office visit with Dr. Rhodes - OSH US shows likely benign > no repeat TVUS needed - Admission labs - Na 136, K 3.1, Cr 0.94, Mg 1.6, P 1.4, AST 16/ALT 6, AlkP 67, WBC 8.5, Hgb 8.1 (MCV 81.4), Plt 275, CA125 104 (29), Ca19-9 9.4, CEA 3.2, afp/hcg/ldh wnl, lactate 1.3 - CT CAP 10/01 : Unchanged size of a large cystic mass in the pelvis measuring up to 17 cm, likely right ovarian in origin and concerning for malignancy. New moderate volume ascites and small bilateral pleural effusions. - as of 10/02 likely benign, CA125^ likely due to peritoneal irritation Plan: - f/u inhibin A&B - wait 4 weeks for pelvic mass surgery #Ulcerative colitis #Diverticulitis with microperforation - dx 2022 after small perirectal abscess or fistula - h/o sticky diarrhea 6-7 times daily since 2022 - initially saw Dr. Delarosa, currently Dr. Miller - per Dr. Miller, colonoscopy showed sigmoid and rectal inflammation with colitis and granulomas - tx w home mesalamine 1000mg suppository qHS, never needed steroids - admitted 09/23 to [place] with diverticulitis, found to have microperforation without free air, managed nonoperatively, discharged 09/29 with outpatient followup - 10/01 CRP 41.8, BCx x2 pending - CT CAP 10/01: Decreased mural thickening and stranding of the sigmoid and descending colon consistent with diverticulitis with an area of microperforation measuring up to 1.7 cm, previously 2.6 cm. - consulted CRS, rec nonoperative mgmt with zosyn and consult to GI Plan: - consider C diff (was negative recently at OSH) - consult GI - started zosyn, consider PO abx that cover ESBL UTI as below #Anemia - OSH Hgb 7.6 in 09/29, FOB positive, s/p EGD, s/p iron infusion - home ferrous sulfate 325 mg - admission Hgb 8.1 #UTI with ESBL - per OSH records, was diagnosed with UTI with ESBL, discharged 09/29 on bactrim (see media for susceptibilities) - currently denies urinary symptoms Plan: - UA, urine culture - covered by zosyn as above (see media for susceptibilities) #Hypertension - home losartan 25mg daily, currently held #Diabetes mellitus - patient reports controlled - held home metformin 500mg qAM - consider insulin order set with sliding scale insulin, premeal POC glucoses #Acute Pain 2/2 Malignancy - denies pain #FEN/GI - Diet: adult regular, consider NPO after midnight pending CT results - Bowel Regimen: miralax prn - mIVF: n/a - Electrolyte repletion PRN - pantoprazole 40mg daily #Goals of Care: undergoing diagnosis Code Status: Full Code Silvia Maurer 10/03/23, 5:34 AM Cosigned by Earlene Germain MD at 10/03/2023 6:55 PM CDT Associated attestation - Earlene Germain MD - 10/03/2023 6:55 PM CDT I have reviewed the medical student note for educational purposes. Please see resident progress note from same date for official documentation. * Plan of Care - Clary Musa RN - 10/03/2023 12:05 AM CDT Goals: Clinical Goals for the Shift: Monitor VS, I&Os, pain control, nausea control, safety, rest Problem: Respiratory Goal: Achieves optimal ventilation and oxygenation Outcome: Ongoing Flowsheets (Taken 10/03/2023 0005) Achieves optimal ventilation and oxygenation: Assess for changes in respiratory status Problem: Skin/Tissue Integrity Goal: Incisions, wounds, or drain sites healing without S/S of infection Outcome: Ongoing Flowsheets (Taken 10/03/2023 0005) Incision(s), Wound(s) or Drain Site(s) healing without S/S of infection: Assess and document skin integrity Problem: Gastrointestinal Goal: Maintains or returns to baseline bowel function Outcome: Ongoing Flowsheets (Taken 10/03/2023 0005) Maintains or returns to baseline bowel function: Assess bowel function, evaluate bowel sounds and signs of abdominal distention Monitor amount, characteristics and/or frequency of stool Administer IV fluids as ordered to ensure adequate hydration Problem: Metabolic/Fluid and Electrolytes Goal: Electrolytes maintained within normal limits Outcome: Ongoing Flowsheets (Taken 10/03/20234) Electrolytes maintained within normal limits: Monitor labs and assess patient for signs and symptoms of electrolyte imbalances Problem: Hematologic Goal: Maintains hematologic stability Outcome: Ongoing Flowsheets (Taken 10/03/20234) Maintains Hematologic Stability: Monitor labs Problem: Fall Risk Goal: Will remain free from falls Outcome: Ongoing Flowsheets (Taken 10/03/20234) Will remain free from falls: Assess risk factors for falls Implement fall prevention measures * Plan of Care - Charlene Tyler RN - 10/02/2023 4:46 PM CDT Goals: labs, urine sample, NPO, monitor BMs, CRS consult Summary: Problem: Discharge Planning Goal: Understanding discharge needs will improve Outcome: Progressing Flowsheets (Taken 10/02/20231644) Understanding of discharge needs will improve: Identify discharge barriers Problem: Skin/Tissue Integrity Goal: Incisions, wounds, or drain sites healing without S/S of infection Outcome: Progressing Flowsheets (Taken 10/02/20231644) Incision(s), Wound(s) or Drain Site(s) healing without S/S of infection: Assess and document skin integrity Problem: Gastrointestinal Goal: Maintains or returns to baseline bowel function Outcome: Progressing Flowsheets (Taken 10/02/20231644) Maintains or returns to baseline bowel function: Assess bowel function, evaluate bowel sounds and signs of abdominal distention Monitor amount, characteristics and/or frequency of stool Administer IV fluids as ordered to ensure adequate hydration Problem: Infection Goal: Absence of infection during hospitalization Outcome: Progressing Flowsheets (Taken 10/02/20231644) Absence of infection during hospitalization: Assess and monitor for signs and symptoms of infection Monitor lab/diagnostic results Problem: Metabolic/Fluid and Electrolytes Goal: Electrolytes maintained within normal limits Outcome: Progressing Flowsheets (Taken 10/02/20231644) Electrolytes maintained within normal limits: Monitor labs and assess patient for signs and symptoms of electrolyte imbalances Problem: Hematologic Goal: Maintains hematologic stability Outcome: Progressing Flowsheets (Taken 10/02/20231644) Maintains Hematologic Stability: Monitor labs Problem: Fall Risk Goal: Will remain free from falls Outcome: Progressing Flowsheets (Taken 10/02/2023 1645) Will remain free from falls: Implement fall prevention measures * Medical Student - Silvia Maurer - 10/02/2023 3:06 PM CDT Brief note: @[address] Miller at [facility] (phone # [phone]). Farhana Russo was diagnosed with UC in 2022 after developing a small perirectal abscess or fistula. Colonoscopy 2022 with rectal and sigmoid inflammation, biopsy with colitis and granulomas. Patient treated with mesalamine only, no plans for discontinuation. Never treated with steroids. Reports that most recent admission to [facility] was for diverticulitis in descending colon with microperforation without free air, to be treated with bactrim until 10/06. Cosigned by Earlene Germain MD at 10/03/2023 6:53 PM CDT Associated attestation - Earlene Germain MD - 10/03/2023 6:53 PM CDT I have reviewed the medical student note and agree with the documentation. * Medical Student - Silvia Maurer - 10/02/2023 1:50 PM CDT TROUBLE LOCATER Oncology Admission H&P CC: abdominal distention HPI: Farhana Russo is a 63 y.o. F with PMH ulcerative colitis (dx 2022) and 15cm pelvic cyst, presentingwith abdominal pain, rectal discharge, and possible colonic microperforation. Patient has a questionable diagnosis of UC since 2022, when her PCP drained an abscess between herlegs leading to rectal discharge. She started seeing GI Dr. Delarosa and currently sees Dr. Millerfor GI. For the past year, she endorses sticky BM 6-7 times daily that sometimes had dark blood or bright red blood. Patient also lost 30-40 pounds in the past year in setting of decreased appetite and abdominal fullness. In August 2023, patient was at work when she suddenly developed fever, chills, shakiness, emesis, malaise, and decreased appetite. She was admitted to [facility] 08/26/23 and was found to have gallstones and an ovarian cyst and received a cholecystectomy. Shewas discharged after 5-6 days. She was admitted to the hospital again 09/04-09/11/23. Most recently, she was admitted 09/23-09/29 due to diarrhea and fecal incontinence all over the bathroom with clear sticky stool. Per patient she was found to be anemic and received an iron infusion and blood transfusion. She received an EGD that she thought was ok and showed gastritis and a small perforation that would heal with antibiotics. She saw Dr. Rhodes today 10/01 for follow-up of pelvic mass, was found to have dawn-yellow gelatinous discharge per rectum, and was admitted to [facility] for workupof possible GI perforation. On interview 10/01, patient denies n/v, or f/c, with last meal this morning. She periodically has RLQ pain and sometimes LLQ pain but has no pain currently. Denies headache, chest pain, SOB, abdominal pain, urinary symptoms, or rashes. PMH: questionable UC (on mesalamine), gallstones, diverticulitis, CCK, HTN (losartan), DM (metformin) Per [facility] records: - admitted 09/04-09/11/23 for fever, heartburn symptoms, abdominal pain, found to have acute cholecystitis and underwent lap balaji with Dr. 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 LMP in early 50s. No vaginal bleeding since then. 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 Allergies: azithromycin (mild rash ~2007) Meds: metformin, losartan, pantoprazole, mesalamine, ferrous sulfate FHx: no fhx of cancer; father had emphysema and heart disease, mother had DM, sister had no medicaldisorders, two twin children are healthy SocHx: denies smoking/alcohol/drug use Cancer Staging No matching staging information was found for the patient. Oncology History No history exists. Past Medical History: Diagnosis Date Diabetes mellitus (HCC) Hypertension Past Surgical History: Procedure Laterality Date CHOLECYSTECTOMY TUBAL LIGATION TROUBLE LOCATER History: No LMP recorded. Patient is postmenopausal. OB History Para Term AB Living 2 2 0 2 0 2 SAB IAB Ectopic Multiple Live Births 0 0 0 0 0 Obstetric Comments Twins HOME MEDICATIONS : losartan (COZAAR) 25 mg tablet mesalamine (CANASA) 1,000 mg suppository metFORMIN (GLUCOPHAGE) [address] (PROTONIX) 40 mg EC tablet sulfamethoxazole-trimethoprim (BACTRIM DS) 800-160 mg per tablet triamcinolone (KENALOG) 0.1 % paste No family history on file. Social History Tobacco Use Smoking status: Never Smokeless tobacco: Not on file Substance and Sexual Activity Drug use: Never Sexual activity: Not on file Alcohol Use: Not on file Review of Systems: Review of systems per HPI and otherwise all other systems are negative VITALS: Vitals: 10/02/23 1222 BP: 142/69 BP Location: Left arm Patient Position: Sitting Pulse: 94 Resp: 16 Temp: 36.7 ??C (98 ??F) TempSrc: Oral SpO2: 99% Weight: 66.9 kg (147 lb 8 oz) Height: 156.2 cm (5' 1.5 ) Physical Exam: General: NAD, mood appropriate HEENT: EOMI, Cardiovascular: Regular rate and rhythm, no murmurs, rubs, or gallops Pulmonary: CTAB, no wheezes, rales, or rhonchi, non-labored breathing, even chest rise Abdomen: Soft, nontender, moderately distended, tympanic in bilateral upper quadrants Extremities: WWP, no ADRIA TROUBLE LOCATER Exam: deferred, see pelvic exam per Dr. Rhodes office visit 10/01 Lab/Imaging Review No results found for: CA125 CT Body Outside Reference Narrative: EXAMINATION: Images For Reference Purposes Only Impression: These images are for Reference purposes only and have not been reviewed by [facility] Radiology. There will be no report generated by a [facility] Radiologist. Assessment and Plan Farhana Russo is a 63 y.o. F with PMH ulcerative colitis (dx 2022) and 15cm pelvic cyst, presentingwith abdominal pain, rectal discharge, and possible colonic microperforation. #Pelvic mass #Abdominal distention - Lost 30-40 pounds since 2022 due to decreased appetite and abdominal fullness - LMP in early 50s, denies vaginal bleeding or abdominal pain - no fhx of cancer or bleeding - physical exam with moderate abdominal distention, no tenderness to palpation - Pelvic mass discovered incidentally on imaging in 08/2023, 15cm pelvic mass, OSH tumor markers Ca125 29, Ca19-9 4, CEA 1 - 10/01 initial office visit with Dr. Rhodes Plan: - pelvic mass workup - tumor markers: CA125, CA19-9, CEA, AFP, inhibin A+B, hCG - consider TVUS #Ulcerative colitis #Diverticulitis with microperforation - dx 2022 after small perirectal abscess or fistula - h/o sticky diarrhea 6-7 times daily since 2022 - initially saw Dr. Delarosa, currently Dr. Miller - per Dr. Miller, colonoscopy showed sigmoid and rectal inflammation with colitis and granulomas - tx w home mesalamine 1000mg suppository qHS, never needed steroids - admitted 09/23 to [place] with diverticulitis, found to have microperforation without free air, managed nonoperatively, discharged 09/29 with outpatient followup Plan: - f/u admission labs: CBC, CMP, BCx x2, aPTT, INR, iron profile w IBC, type and screen, CRP, phos, mag - consider lactate, bilirubin, amylase, lipase, ESR, CRP, fecal calprotectin, stool studies (C diff, stool O+P, giardia), infectious studies (chlamydia, gonorrhea, HSV, treponema) - repeat CT CAP - consult to colorectal surgery, consider scope - if abscess could consider IR consult #Anemia - OSH Hgb 7.6 in 09/29, FOB positive, s/p EGD, s/p iron infusion - home ferrous sulfate 325 mg #UTI with ESBL - per OSH records, was diagnosed with UTI with ESBL, discharged 09/29 on bactrim - currently denies urinary symptoms Plan: - UA, urine culture - continue bactrim 160mg BID to complete course until 10/05 #Hypertension - home losartan 25mg daily, currently held #Diabetes mellitus - patient reports controlled - held home metformin 500mg qAM - consider insulin order set with sliding scale insulin, premeal POC glucoses #Acute Pain 2/2 Malignancy - denies pain #FEN/GI - Diet: adult regular, consider NPO after midnight pending CT results - Bowel Regimen: miralax prn - mIVF: n/a - Electrolyte repletion PRN - pantoprazole 40mg daily #Goals of Care: undergoing diagnosis Code Status: Full Code, this was not readdressed and confirmed upon admission. Patient discussed with Dr. Storm. CHARY Brower IV 2:45 PM 10/02/23 Cosigned by Earlene Germain MD at 10/03/2023 6:54 PM CDT Associated attestation - Earlene Germain MD - 10/03/2023 6:54 PM CDT I have reviewed the medical student note for educational purposes. Please see resident H&P from same date for official documentation. documented in this encounter Plan of Treatment Not on file documented as of this encounter Procedures Procedure Name Priority Date/Time Associated Diagnosis Comments OVA AND PARASITE EXAM GEN LAB Routine 10/04/2023 8:35 AM CDT CRYPTOSPORIDIUM AND GIARDIA ANTIGEN ASSAY Routine 10/04/2023 8:35 AM CDT EGFR Routine 10/03/2023 9:40 PM CDT CBC WITHOUT DIFFERENTIAL Routine 10/03/2023 9:40 PM CDT HEMOGLOBIN A1C Routine 10/03/2023 9:40 PM CDT FERRITIN Timed 10/03/2023 9:40 PM CDT COMPREHENSIVE METABOLIC PANEL Routine 10/03/2023 9:40 PM CDT INFECTION PREVENTION VRE CULTURE Routine 10/03/2023 7:28 PM CDT STOOL CULTURE Routine 10/03/2023 7:28 PM CDT C. DIFFICILE TESTING Routine 10/03/2023 12:50 PM CDT INFECTION PREVENTION VRE CULTURE Routine 10/03/2023 12:50 PM CDT STOOL CULTURE Routine 10/03/2023 12:50 PM CDT POCT GLUCOSE DEVICE Routine 10/03/2023 4 :34 AM CDT POCT GLUCOSE DEVICE Routine 10/03/2023 1 2:[address] CHEST ABDOMEN PELVIS W CONTRAST ED Urgent/IP Urgent 10/02/2023 10:20 PM CDT B CHECK SAMPLE STAT 10/02/2023 8:34 PM CDT LACTATE Timed 10/02/2023 5:24 PM CDT XR TRANSFER OF OUTSIDE FILMS Routine 10/02/2023 4:54 PM CDT US TRANSFER OF OUTSIDE FILMS Routine 10/02/2023 4:53 PM CDT US TRANSFER OF OUTSIDE FILMS Routine 10/02/2023 4:[address] BODY OUTSIDE CONSULT Routine 10/02/2023 4:[address] BODY OUTSIDE REFERENCE Routine 10/02/2023 4:47 PM CDT US TRANSFER OF OUTSIDE FILMS Routine 10/02/2023 4:[address] BODY OUTSIDE REFERENCE Routine 10/02/2023 4:43 PM CDT NM OUTSIDE REFERENCE Routine 10/02/2023 4:42 PM CDT XR TRANSFER OF OUTSIDE FILMS Routine 10/02/2023 4:[address] OUTSIDE CONSULT Routine 10/02/2023 4:38 PM CDT EGFR Routine 10/02/2023 4:37 PM CDT DIFFERENTIAL AUTO Routine 10/02/2023 4:3 7 PM CDT INHIBIN A AND B Routine 10/02/2023 4:37 PM CDT IRON PROFILE W/ IBC Routine 10/02/2023 4 :37 PM CDT URINALYSIS AND REFLEX TO MICROSCOPIC AND CULTURE Routine 10/02/2023 4:37 PM CDT CBC WITH AUTO DIFFERENTIAL Routine 10/02/2023 4:37 PM CDT CANCER ANTIGEN 19-9 Routine 10/02/2023 4 :37 PM CDT [id number], TUMOR MARKER Routine 10/02/2023 4:37 PM CDT BLOOD CULTURE Routine 10/02/2023 4:37 PM CDT BLOOD CULTURE Routine 10/02/2023 4:37 PM CDT URINALYSIS, MICROSCOPIC ONLY Routine 10/02/2023 4:37 PM CDT APTT Routine 10/02/2023 4:37 PM CDT PROTIME-INR Routine 10/02/2023 4:37 PM CDT TYPE AND SCREEN Timed 10/02/2023 4:37 PM CDT URINE CULTURE Routine 10/02/2023 4:37 PM CDT CA 125 Routine 10/02/2023 4:37 PM CDT CRP (ACUTE PHASE) Routine 10/02/2023 4:3 7 PM CDT HCG, BLOOD, QUANTITATIVE Routine 10/02/2023 4:37 PM CDT PHOSPHORUS Routine 10/02/2023 4:37 PM CDT MAGNESIUM Routine 10/02/2023 4:37 PM CDT LACTATE DEHYDROGENASE Routine 10/02/2023 4:37 PM CDT CEA Routine 10/02/2023 4:37 PM CDT COMPREHENSIVE METABOLIC PANEL Routine 10/02/2023 4:[address] BODY OUTSIDE REFERENCE Routine 10/02/2023 2:25 PM CDT documented in this encounter Results * MRI [...] MD IMG MRI PROCEDURES Final Result * Cryptosporidium and Giardia antigen assay Stool (10/04/2023 8:35 AM CDT) Pathologist [facility] Giardia Ag Negative Negative Cryptosporidium Ag Negative Negative [facility] Comment: Interpretive data: Testing performed by the [facility] using an immunoassay that detects Cryptosporidium and Giardia antigens in stool specimens. ??If comprehensive examination for ova and parasites is required, please request Ova and Parasite Examination . Stool 10/04/2023 8:35 AM CDT 10/04/2023 10:26 AM CDT Melissa Rhodes MD LAB MICROBIOLOGY - GENERA L ORDERABLES Final Result [facility] One [facility] Department [place] [address] * Ova and parasite exam Stool (10/04/2023 8:35 AM CDT) Ova & Parasite exam See Footnote [facility] Comment: SOURCE: STOOL, STLP OVA AND PARASITE, MICROSCOPY, F ?FINAL No parasites seen. Leukocytes present. Red blood cells present. Cryptosporidium, Cyclospora, and microsporidia are not readily detected by this method. Single negative specimen does not rule out parasitic infection. Test Performed by: [facility] - [address] [address] Aquatics Specialist: Rach Guillermo Ph.D.; CLIA# [id number] Stool 10/04/2023 8:35 AM CDT 10/04/2023 10:26 AM CDT Narrative [facility] - 10/09/2023 12:47 PM CDT Is the patient immunospressed?->No Has the patient had recent travel outside the [place]?->No us Melissa Rhodes MD LAB MICROBIOLOGY - GENERA L ORDERABLES Final Result [facility] [place] [address] [facility] * eGFR (10/03/2023 9:40 PM CDT) eGFR 81 >=60 mL/min/1. 73 [...] interpretive data was last reviewed 2020. Blood 10/03/2023 9:40 PM CDT 10/03/2023 10:16 PM CDT us Melissa Rhodes MD LAB BLOOD ORDERABLES Samantha kaylie Result [facility] [place] [address] * (ABNORMAL) Comprehensive metabolic panel (10/03/2023 9:40 PM CDT) Sodium 136 135 - 145 mmol/L Potassium, pl 4.5 3.3 - 4.9 mmol/L [facility] Chloride 103 97 - 110 mmol/L [facility] CO2 25 22 - 32 mmol/L [facility] Anion gap 8 2 - 15 mmol/L [facility] BUN 10 6 - 25 mg/dL [facility] Creatinine 0.81 0.60 - 1.10 mg/dL [facility] Glucose 148 70 - 199 mg/dL [facility] Comment: Interpretive Data Fasting glucose >/= [...] 2022. Calcium 8.2(L) 8.5 - 10.3 mg/dL [facility] Bilirubin, total 0.3 0.1 - 1.2 mg/dL [facility] Protein, pl 5.9(L) 6.5 - 8.5 g/dL [facility] Albumin 3.3(L) 3.5 - 5.0 g/dL [facility] Alk phos 66 40 - 130 Units/L [facility] ALT 6(L) 7 - 45 Units/L [facility] AST 17 10 - 45 Units/L [facility] Blood 10/03/2023 9:40 PM CDT 10/03/2023 10:16 PM CDT us Melissa Rhodes MD LAB BLOOD ORDERABLES Samantha l Result [facility] Department [place] [address] * (ABNORMAL) CBC without differential (10/03/2023 9:40 PM CDT) WBC 10.4(H) 3.8 - 9.9 K/cumm Hgb 7.4(L) 11.9 - 15.5 g/dL [facility] Hct 24.0(L) 35.6 - 45.5 % [facility] Plt 261 150 - 400 K/cumm [facility] MPV 8.8(L) 9.1 - 12.3 fL [facility] RBC 2.97(L) 3.90 - 5.20 M/cumm [facility] MCV 80.8(L) 81.3 - 96.4 fL [facility] MCH 24.9(L) 27.1 - 33.3 pg [facility] MCHC 30.8(L) 32.3 - 35.7 g/dL [facility] RDW CV 18.8(H) 11.1 - 14.9 % [facility] RDW SD 52.7(H) 35.7 - 48.1 fL [facility] NRBC abs 0.00 0.00 - 0.01 K/cumm [facility] Blood 10/03/2023 9:40 PM CDT 10/03/2023 10:16 PM CDT us Melissa Rhodes MD LAB BLOOD ORDERABLES Samantha l Result [facility] [place] [address] * (ABNORMAL) Ferritin (10/03/2023 9:40 PM CDT) Ferritin 914(H) 13 - 150 ng/mL Blood 10/03/2023 9:40 PM CDT 10/03/2023 10:16 PM CDT Melissa Rhodes MD LAB BLOOD ORDERABLES Samantha l Result Performing Organization Address [facility] [place] [address] * Hemoglobin A1c (10/03/2023 9:40 PM CDT) Pathologist [facility] Hgb A1C 5.6 4.0 - 5.6 % Estimated Average Glucose 114 mg/dL [facility] Comment: The ADA recommends reporting an estimated Average Glucose (eAG) with all Hemoglobin A1c results using the equation derived from a study of 507 normal and diabetic adults. ??Minority populations were underrepresented and children were not included. ?? (Diabetes Care 2020; 43(S1): S66-S76). ??The eAG is not equivalent to a fasting glucose. Blood 10/03/2023 9:40 PM CDT 10/03/2023 10:16 PM CDT Melissa Rhodes MD LAB BLOOD ORDERABLES Samantha l Result Performing Organization Address City/State/[facility] Co de Phone Number [facility] [place] [place] [address] * Infection Prevention VRE Culture Stool Rectum (10/03/2023 7:28 PM CDT) Report Final Report: Negative Stool (Rectum) 10/03/2023 7: 28 PM CDT 10/03/2023 8:26 PM CDT Narrative [facility] - 10/06/2023 7:11 AM CDT Surveillance culture for Infection Prevention purposes only; results indicate colonization, not infection requiring treatment. Testing performed by [facility] ([phone]). Melissa Rhodes MD LAB MICROBIOLOGY - GENERA L ORDERABLES Final Result Performing Organization Address [facility] de Phone Number [facility] [place] [address] * Stool culture Stool Rectum (10/03/2023 7:28 PM CDT) Direct Specimen Exam Shiga Toxin Testing: Antigen detection assay for Shiga-toxin NEGATIVE for Shiga Toxin 1 and Shiga Toxin 2. Report Final Report: No growth of enteric bacterial pathogens [facility] Stool (Rectum) 10/03/2023 7: 28 PM CDT 10/03/2023 8:26 PM CDT Narrative [facility] - 10/07/2023 11:47 AM CDT Testing performed by [facility] ([phone]). Routine stool cultures include procedures to detect Salmonella, Shigella, Edwardsiella, Aeromonas, Pleisiomonas, Campylobacter, Yersinia, E. coli O157, and Shiga-like toxins. ?? Vibrio is cultured only upon special request. ??If Vibrio is suspected, please call the laboratory at [phone]. Interpretive data was last updated June 24, 2016. Melissa Rhodes MD LAB MICROBIOLOGY - GENERA L ORDERABLES Final Result Performing Organization Address [facility] Co de Phone Number [facility] One [facility] [place] [address] * Infection Prevention VRE Culture Stool (10/03/2023 12:50 PM CDT) Report Final Report: Negative Stool 10/03/2023 12:5 0 PM CDT 10/03/2023 7:18 PM CDT Narrative [facility] - 10/06/2023 7:11 AM CDT Surveillance culture for Infection Prevention purposes only; results indicate colonization, not infection requiring treatment. Testing performed by [facility] ([phone]). Melissa Rhodes MD LAB MICROBIOLOGY - GENERA L ORDERABLES Final Result Performing Organization Address [facility] de Phone Number [facility] [place] [address] * Stool culture Stool Rectum (10/03/2023 12:50 PM CDT) Direct Specimen Exam Shiga Toxin Testing: Antigen detection assay for Shiga-toxin NEGATIVE for Shiga Toxin 1 and Shiga Toxin 2. Report Final Report: No growth of enteric bacterial pathogens [facility] Stool (Rectum) 10/03/2023 12 :50 PM CDT 10/03/2023 4:05 PM CDT Narrative [facility] - 10/07/2023 11:46 AM CDT Testing performed by [facility] ([phone]). Routine stool cultures include procedures to detect Salmonella, Shigella, Edwardsiella, Aeromonas, Pleisiomonas, Campylobacter, Yersinia, E. coli O157, and Shiga-like toxins. ?? Vibrio is cultured only upon special request. ??If Vibrio is suspected, please call the laboratory at [phone]. Interpretive data was last updated June 24, 2016. Melissa Rhodes MD LAB MICROBIOLOGY - GENERA L ORDERABLES Final Result Performing Organization Address [facility] Co de Phone Number [facility] One [facility] [place] [address] * C. difficile testing Stool (10/03/2023 12:50 PM CDT) [facility] Result Negative Negative Toxin Result Negative Negative [facility] C. diff result Negative, free toxin Negative, free toxin [facility] C. diff interp Negative for toxigenic Clostridioides (Clostridium) difficile. Analysis was performed using a glutamate dehydrogenase antigen detection assay combined with a C. difficile toxin detection assay. [facility] Stool 10/03/2023 12:5 0 PM CDT 10/03/2023 4:05 PM CDT Melissa Rhodes MD LAB MICROBIOLOGY - GENERA L ORDERABLES Final Result Performing Organization Address City/[facility] Co de Phone Number [facility] [place] [address] * POCT glucose (10/03/2023 4:34 AM CDT) Glucose, POC 120 70 - 199 mg/dL Blood 10/03/2023 4:34 AM CDT 10/03/2023 4:34 AM CDT Melissa Rhodes MD LAB POCT ORDERABLES - DEV ICE Final Result Performing Organization Address [facility] Co de Phone Number [facility] [place] [address] * POCT glucose (10/03/2023 12:11 AM CDT) Glucose, POC 130 70 - 199 mg/dL Blood 10/03/2023 12:1 1 AM CDT 10/03/2023 12:11 AM CDT Melissa Rhodes MD LAB POCT ORDERABLES - DEV ICE Final Result Performing Organization Address [facility] de Phone Number [facility] [place] [address] * CT Chest Abdomen Pelvis W Contrast (10/02/2023 10:20 PM CDT) Anatomical Region Laterality Modality Body N/A Computed Tomogra phy 10/02/2023 10:5 1 PM CDT Impressions 10/03/2023 9:28 AM CDT 1. ??Decreased mural thickening and stranding of the sigmoid and descending colon consistent with diverticulitis with an area of microperforation measuring up to 1.7 cm, previously 2.6 cm. 2. ??Unchanged size of a large cystic mass in the pelvis measuring up to 17 cm, likely right ovarian in origin and concerning for malignancy. 3. ??Hypoattenuating 2.4 cm area in hepatic segment IVb is favored to represent change from recent cholecystectomy. 4. ??New moderate volume ascites and small bilateral pleural effusions. Dictated by: Olivia Reynoso MD The radiology attending physician has personally reviewed this study, and had reviewed and/or edited this written report and agrees with it. Electronically signed by: Familia Jimenez M.D. Narrative 10/03/2023 9:28 AM CDT EXAMINATION: ??Computed tomography of the chest, abdomen and pelvis with intravenous contrast HISTORY: Weight loss. Evaluate for diverticular perforation. TECHNIQUE: ??Transaxial computed tomographic images of the chest, abdomen and pelvis were obtained with intravenous contrast according to the standard protocol after the uneventful administration of 69 mL Opti-Ray 350 intravenous contrast. COMPARISON: 09/24/2023 FINDINGS: ?? Chest: Mild bibasilar atelectasis with a new small left and trace right. Pleural effusion. No pulmonary consolidation, pneumothorax or pleural effusion. Heterogeneous right thyroid gland. No supraclavicular, mediastinal, or axillary lymphadenopathy. Imaged heart is normal in size without pericardial effusion. Moderate coronary artery atherosclerosis. Abdomen/Pelvis: Hypoattenuating hepatic segment 8 dome lesion likely represents a simple cyst and is unchanged additional hypoattenuating hepatic and segment 4 lesion measures 2.4 x 2.0 cm (series 2 image 139), new from 08/26/2023. Cholecystectomy. Spleen, pancreas, renal glands are normal. Kidneys enhance symmetrically without hydronephrosis or nephrolithiasis. Bladder is normal. There is a large cystic mass within the pelvis measuring 13 x 17 x 13 cm. This appears to originate from the right ovary. Uterus present. The sigmoid and descending colon is markedly thick-walled and edematous with surrounding fat stranding, slightly decreased from CT 09/24/2023. There is a small likely extraluminal as site of microperforation seen on series 2 image 192 with internal focus of air measuring 1.7 x 1.7 cm, previously 2.6 x 2.8 cm. No organized, drainable fluid collection. There is new small volume ascites throughout the abdomen. Distal esophagus and stomach are normal. The aorta is normal in course and caliber without aneurysmal dilatation. No suspicious abdominal or pelvic lymphadenopathy. No aggressive osseous lesion. Procedure Note Familia Jimenez MD - 10/03/2023 EXAMINATION: Computed tomography of the chest, abdomen and pelvis with intravenous contrast HISTORY: Weight loss. Evaluate for diverticular perforation. TECHNIQUE: Transaxial computed tomographic images of the chest, abdomen and pelvis were obtained with intravenous contrast according to the standard protocol after the uneventful administration of 69 mL Opti-Ray 350 intravenous contrast. COMPARISON: 09/24/2023 FINDINGS: Chest: Mild bibasilar atelectasis with a new small left and trace right. Pleural effusion. No pulmonary consolidation, pneumothorax or pleural effusion. Heterogeneous right thyroid gland. No supraclavicular, mediastinal, or axillary lymphadenopathy. Imaged heart is normal in size without pericardial effusion. Moderate coronary artery atherosclerosis. Abdomen/Pelvis: Hypoattenuating hepatic segment 8 dome lesion likely represents a simple cyst and is unchanged additional hypoattenuating hepatic and segment 4 lesion measures 2.4 x 2.0 cm (series 2 image 139), new from 08/26/2023. Cholecystectomy. Spleen, pancreas, renal glands are normal. Kidneys enhance symmetrically without hydronephrosis or nephrolithiasis. Bladder is normal. There is a large cystic mass within the pelvis measuring 13 x 17 x 13 cm. This appears to originate from the right ovary. Uterus present. The sigmoid and descending colon is markedly thick-walled and edematous with surrounding fat stranding, slightly decreased from CT 09/24/2023. There is a small likely extraluminal as site of microperforation seen on series 2 image 192 with internal focus of air measuring 1.7 x 1.7 cm, previously 2.6 x 2.8 cm. No organized, drainable fluid collection. There is new small volume ascites throughout the abdomen. Distal esophagus and stomach are normal. The aorta is normal in course and caliber without aneurysmal dilatation. No suspicious abdominal or pelvic lymphadenopathy. No aggressive osseous lesion. IMPRESSION: 1. Decreased mural thickening and stranding of the sigmoid and descending colon consistent with diverticulitis with an area of microperforation measuring up to 1.7 cm, previously 2.6 cm. 2. Unchanged size of a large cystic mass in the pelvis measuring up to 17 cm, likely right ovarian in origin and concerning for malignancy. 3. Hypoattenuating 2.4 cm area in hepatic segment IVb is favored to represent change from recent cholecystectomy. 4. New moderate volume ascites and small bilateral pleural effusions. Dictated by: Olivia Reynoso MD The radiology attending physician has personally reviewed this study, and had reviewed and/or edited this written report and agrees with it. Electronically signed by: Familia Jimenez M.D. Melissa Rhodes MD IMG CT PROCEDURES Final R esult * Check Sample (10/02/2023 8:34 PM CDT) ABO Rh O Positive [facility] OTHER 10/02/2023 8:34 PM CDT 10/02/2023 9:13 PM CDT Melissa Rhdoes MD LAB BLOOD ORDERABLES Samantha l Result Performing Organization Address City/[facility]/ZIP Co de Phone Number [facility] [place] [address] BJ * Lactate (10/02/2023 5:24 PM CDT) Lactate 1.3 0.7 - 2.0 mmol/L Blood 10/02/2023 5:24 PM CDT 10/02/2023 5:52 PM CDT Melissa Rhodes MD LAB BLOOD ORDERABLES Samantha l Result [facility] [place] [address] * XR Outside Reference (10/02/2023 4:54 PM CDT) Impressions [email or web address] - 10/02/2023 4:54 PM CDT These images are for Reference purposes only and have not been reviewed by [facility] Radiology. ??There will be no report generated by a [facility] Radiologist. Narrative [email or web address] - 10/02/2023 4:54 PM CDT EXAMINATION: ??Images For Reference Purposes Only us Melissa Rhodes MD IMG XR PROCEDURES Final R esult Performing Organization Address [facility] de Phone Number [email or web address] * US Outside Reference (10/02/2023 4:53 PM CDT) Impressions [email or web address] - 10/02/2023 4:53 PM CDT These images are for Reference purposes only and have not been reviewed by [facility] Radiology. ??There will be no report generated by a [facility] Radiologist. Narrative [email or web address] - 10/02/2023 4:53 PM CDT EXAMINATION: ??Images For Reference Purposes Only us Melissa Rhodes MD IMG US PROCEDURES Final R esult Performing Organization Address [facility] de Phone Number [email or web address] * US Outside Reference (10/02/2023 4:51 PM CDT) Impressions [email or web address] - 10/02/2023 4:51 PM CDT These images are for Reference purposes only and have not been reviewed by [facility] Radiology. ??There will be no report generated by a [facility] Radiologist. Narrative [email or web address] - 10/02/2023 4:51 PM CDT EXAMINATION: ??Images For Reference Purposes Only us Melissa Rhodes MD IMG US PROCEDURES Final R esult Performing Organization Address [facility] Co de Phone Number [email or web address] * CT Body Outside Consult (10/02/2023 4:49 PM CDT) Anatomical Region Laterality Modality Body N/A Computed Tomogra phy 10/03/2023 1:30 AM CDT Impressions 10/03/2023 1:30 AM CDT This study was initially nominated as a consult on outside images via Outside Image Sharing Service. However, a consult was not performed because a more recent CT of the chest, abdomen pelvis was performed on 10/02/2023 ??at [facility] (accession # [id number]) for which these images obtained 09/24/2023 will serve as reference. Accordingly, there will be no separate report of this study generated by a [facility] Radiologist. Electronically signed by: King Harper MD, PHD Narrative 10/03/2023 1:30 AM CDT EXAMINATION: ??CHANGE CONSULT ON OUTSIDE IMAGES TO REFERENCE IMAGES Procedure Note King Harper MD PhD - 10/03/2023 EXAMINATION: CHANGE CONSULT ON OUTSIDE IMAGES TO REFERENCE IMAGES IMPRESSION: This study was initially nominated as a consult on outside images via Outside Image Sharing Service. However, a consult was not performed because a more recent CT of the chest, abdomen pelvis was performed on 10/02/2023 at [facility] (accession # [id number]) for which these images obtained 09/24/2023 will serve as reference. Accordingly, there will be no separate report of this study generated by a [facility] Radiologist. Electronically signed by: King Harper MD, PHD Melissa Rhodes MD IM CT PROCEDURES Final R esult * CT Body Outside Reference (10/02/2023 4:47 PM CDT) Impressions [email or web address] - 10/02/2023 4:47 PM CDT These images are for Reference purposes only and have not been reviewed by [facility] Radiology. ??There will be no report generated by a [facility] Radiologist. Narrative RAD_PACS_BJ - 10/02/2023 4:47 PM CDT EXAMINATION: ??Images For Reference Purposes Only Melissa Rhodes MD IMG CT PROCEDURES Final R esult Performing Organization Address [facility] de Phone Number [email or web address] * US Outside Reference (10/02/2023 4:45 PM CDT) Impressions [facility] - 10/02/2023 4:45 PM CDT These images are for Reference purposes only and have not been reviewed by [facility] Radiology. ??There will be no report generated by a [facility] Radiologist. Narrative [facility] - 10/02/2023 4:45 PM CDT EXAMINATION: ??Images For Reference Purposes Only Melissa Rhodes MD IMG US PROCEDURES Final R esult Performing Organization Address [facility] de Phone Number [email or web address] * CT Body Outside Reference (10/02/2023 4:43 PM CDT) Impressions [facility] - 10/02/2023 4:43 PM CDT These images are for Reference purposes only and have not been reviewed by [facility] Radiology. ??There will be no report generated by a [facility] Radiologist. Narrative [facility] - 10/02/2023 4:43 PM CDT EXAMINATION: ??Images For Reference Purposes Only Melissa Rhodes MD IMG CT PROCEDURES Final R esult Performing Organization Address [facility] de Phone Number RAD_PACS[facility] * NM Outside Reference (10/02/2023 4:42 PM CDT) Impressions [facility] - 10/02/2023 4:42 PM CDT These images are for Reference purposes only and have not been reviewed by [facility] Radiology. ??There will be no report generated by a [facility] Radiologist. Narrative [facility]_PACS[facility] - 10/02/2023 4:42 PM CDT EXAMINATION: ??Images For Reference Purposes Only Melissa Rhodes MD IMG NM PROCEDURES Final R esult Performing Organization Address City/[facility] Co de Phone Number RAD_[email or web address] * XR Outside Reference (10/02/2023 4:40 PM CDT) Impressions RAD_PACMundo_[facility] - 10/02/2023 4:40 PM CDT These images are for Reference purposes only and have not been reviewed by [facility] Radiology. ??There will be no report generated by a [facility] Radiologist. Narrative [facility]_P[facility] - 10/02/2023 4:40 PM CDT EXAMINATION: ??Images For Reference Purposes Only Melissa Rhodes MD IMG XR PROCEDURES Final R esult Performing Organization Address [facility] de Phone Number [facility][email or web address] * Neuro CT Outside Consult (10/02/2023 4:38 PM CDT) Anatomical Region Laterality Modality N/A Computed Tomogra phy 10/02/2023 4:55 PM CDT Impressions 10/02/2023 8:35 PM CDT No acute intracranial hemorrhage or large territorial infarct. The findings, conclusions and recommendations within this report do not replace the initial findings, conclusions ??and recommendations made at the facility where the study was performed based upon the imaging and clinical condition at that time. ??Comparison with the prior report and clinical history is necessary. ??The provided images may or may not represent the [place] source data set and thus may contain changes that may lower the accuracy of this second-opinion interpretation. Dictated by: Fercho Duke MD PHD The radiology attending physician has personally reviewed this study, and had reviewed and/or edited this written report and agrees with it. Electronically signed by: Ivette Plummer M.D. Narrative 10/02/2023 8:35 PM CDT EXAMINATION: RADIOLOGY CONSULTATION ON OUTSIDE IMAGING STUDY STUDY INITIALLY PERFORMED: 09/24/2023 at [facility] [place]. TYPE OF STUDY: Multiple CT images of the head without intravenous contrast are provided at the time of this interpretation. CONTRAST ROUTE: No contrast was administered. The protocol was adequate to address the clinical question. The outside final report was not available at the time of this second opinion interpretation. TYPE OF CONSULTATION: Consult on outside imaging study with images submitted through Outside Image Sharing Service DATE OF CONSULTATION: 10/02/2023 4:45 PM HISTORY: 63-year-old with altered mental status. COMPARISON: None available. FINDINGS: There is no acute intracranial hemorrhage. Mild diffuse cerebral volume loss, with expected ex vacuo dilatation of the ventricles. No mass effect or midline shift is present. Scattered periventricular and subcortical white matter punctate foci of hypoattenuation are nonspecific and may represent sequela of chronic small vessel ischemic disease. The visualized portions of the orbits are normal. The visualized portions of the mastoids are normal. ??Aplasia of the frontal sinuses. ??The visualized portions of the remaining paranasal sinuses are normal. No fractures are identified. Procedure Note Ivette Plummer MD - 10/02/2023 EXAMINATION: RADIOLOGY CONSULTATION ON OUTSIDE IMAGING STUDY STUDY INITIALLY PERFORMED: 09/24/2023 at [facility] [place]. TYPE OF STUDY: Multiple CT images of the head without intravenous contrast are provided at the time of this interpretation. CONTRAST ROUTE: No contrast was administered. The protocol was adequate to address the clinical question. The outside final report was not available at the time of this second opinion interpretation. TYPE OF CONSULTATION: Consult on outside imaging study with images submitted through Outside Image Sharing Service DATE OF CONSULTATION: 10/02/2023 4:45 PM HISTORY: 63-year-old with altered mental status. COMPARISON: None available. FINDINGS: There is no acute intracranial hemorrhage. Mild diffuse cerebral volume loss, with expected ex vacuo dilatation of the ventricles. No mass effect or midline shift is present. Scattered periventricular and subcortical white matter punctate foci of hypoattenuation are nonspecific and may represent sequela of chronic small vessel ischemic disease. The visualized portions of the orbits are normal. The visualized portions of the mastoids are normal. Aplasia of the frontal sinuses. The visualized portions of the remaining paranasal sinuses are normal. No fractures are identified. IMPRESSION: No acute intracranial hemorrhage or large territorial infarct. The findings, conclusions and recommendations within this report do not replace the initial findings, conclusions and recommendations made at the facility where the study was performed based upon the imaging and clinical condition at that time. Comparison with the prior report and clinical history is necessary. The provided images may or may not represent the [place] source data set and thus may contain changes that may lower the accuracy of this second-opinion interpretation. Dictated by: Fercho Duke MD PHD The radiology attending physician has personally reviewed this study, and had reviewed and/or edited this written report and agrees with it. Electronically signed by: Ivette Plummer M.D. Melissa Rhodes MD IMG CT PROCEDURES Final R esult * Urine culture Urine (10/02/2023 4:37 PM CDT) Report Final Report: Less than 100,000 colonies/mL (clinically insignificant growth based on current clinical standards) Organism (CLINICALLY INSIGNIFICANT GROWTH [facility] Urine 10/02/2023 4:37 PM CDT 10/03/2023 10:45 AM CDT Narrative [facility] - 10/04/2023 1:10 PM CDT Urine culture reflexed based upon urinalysis results. Testing performed by [facility] Microbiology Laboratory ([phone]) Melissa Rhodes MD LAB MICROBIOLOGY - GENERA L ORDERABLES Final Result [facility] Department [place] [address] * (ABNORMAL) Urinalysis, microscopic only (10/02/2023 4:37 PM CDT) WBC, ur 21-50(A) 0 - 5 /HPF RBC, ur 3-5(A) 0 - 2 /HPF [facility] Epithelial cells, squamous, ur 1-5 0 - 5 /HPF [facility] Bacteria, ur Trace(A) [facility] Yeast, ur 1+(A) [facility] Culture Reflex Comment Reflex to urine culture will be performed. [facility] Urine 10/02/2023 4:37 PM CDT 10/03/2023 8:23 AM CDT us Melissa Rhodes MD LAB URINE ORDERABLES Samantha l Result Performing Organization Address [facility] Co de Phone Number [facility] [place] [address] * eGFR (10/02/2023 4:37 PM CDT) eGFR 67 >=60 mL/min/1. 73 m2 Comment: Interpretive Data [...] interpretive data was last reviewed 2020. Blood 10/02/2023 4:37 PM CDT 10/02/2023 6:15 PM CDT us Melissa Rhodes MD LAB BLOOD ORDERABLES Samantha l Result Performing Organization Address [facility] Co de Phone Number [facility] Department [place] [address] * Differential, auto (10/02/2023 4:37 PM CDT) Neutrophil abs 6.5 1.5 - 6.5 K/cumm Imm gran abs 0.1 0.0 - 0.1 K/cumm [facility] Lymphocyte abs 1.2 0.8 - 3.3 K/cumm [facility] Monocyte abs 0.6 0.2 - 0.8 K/cumm [facility] Eosinophil abs 0.1 0.0 - 0.5 K/cumm [facility] Basophil abs 0.0 0.0 - 0.1 K/cumm [facility] Neutrophil pct 77.0 % [facility] Comment: Interpretive Data Percent cell count reference ranges are not reported, since discordance with absolute values may lead to misinterpretation of CBC data. Current Interpretive Data was last revised on 2017. Imm gran pct 0.7 % [facility] Comment: Interpretive Data Percent cell count reference ranges are not reported, since discordance with absolute values may lead to misinterpretation of CBC data. Current Interpretive Data was last revised on 2017. Lymphocyte pct 14.3 % [facility] Comment: Interpretive Data Percent cell count reference ranges are not reported, since discordance with absolute values may lead to misinterpretation of CBC data. Current Interpretive Data was last revised on 2017. Monocyte pct 6.7 % [facility] Comment: Interpretive Data Percent cell count reference ranges are not reported, since discordance with absolute values may lead to misinterpretation of CBC data. Current Interpretive Data was last revised on 2017. Eosinophil pct 1.1 % [facility] Comment: Interpretive Data Percent cell count reference ranges are not reported, since discordance with absolute values may lead to misinterpretation of CBC data. Current Interpretive Data was last revised on 2017. Basophil pct 0.2 % [facility] Comment: Interpretive Data Percent cell count reference ranges are not reported, since discordance with absolute values may lead to misinterpretation of CBC data. Current Interpretive Data was last revised on 2017. Blood 10/02/2023 4:37 PM CDT 10/02/2023 6:15 PM CDT us Melissa Rhodes MD LAB BLOOD ORDERABLES Samantha l Result Performing Organization Address City/[facility]/ZIP Co de Phone Number GO [facility] Department [place] [address] * (ABNORMAL) Urinalysis reflex to microscopic and culture Urine (10/02/2023 4:37 PM CDT) Color, ur Straw Yellow Clarity, ur Clear Clear [facility] Specific gravity, ur 1.017 1.003 - 1.030 [facility] pH, urine 7.0 [facility] Comment: Interpretive Data ? Urine pH is affected by diet, medications, systemic acid-base disturbances, and renal tubular function. ??pH may affect urinary stone formation. ??For example, urine pH below 6.0 may help reduce the tendency for calcium phosphate stones and pH greater than 6.0 may reduce the tendency for uric acid stone formation. Source: [facility] Current Interpretive Data was last revised on 2017 Protein, ur ql Trace Negative [facility] Glucose, ur ql Negative Negative [facility] Ketones, ur 1+(A) Negative [facility] Bilirubin, ur Negative Negative [facility] Blood, ur Negative Negative [facility] Urobilinogen, ur <2.0 <2.0 mg/dL [facility] Nitrite, ur Negative Negative [facility] Leukocyte esterase, ur 2+(A) Negative [facility] UA reflex comment Reflex to microscopic UA will be performed. [facility] Urine 10/02/2023 4:37 PM CDT 10/03/2023 8:23 AM CDT us Melissa Rhodes MD LAB MICROBIOLOGY - GENERA L ORDERABLES Final Result Performing Organization Address [facility] Co de Phone Number [facility] Department [place] [address] * hCG, blood, quantitative (10/02/2023 4:37 PM CDT) hCG, quant <5.0 0.0 - 5.0 IUnits/L Comment: Interpretive Data Male: < 5 IU/L Non- premenopausal Female: <5 IU/L [employer] hCG Beta Quant assay procedure was used. Results from different manufacturers or methods may not be comparable. ??Serial testing should be performed using the same method. Interpretive Data was last revised on 2023 Blood 10/02/2023 4:37 PM CDT 10/02/2023 6:15 PM CDT Melissa Rhodes MD LAB BLOOD ORDERABLES Samantha l Result Performing Organization Address [facility] de Phone Number [facility] [address] [employer] [address] [place], [place] [id number] * CEA (10/02/2023 4:37 PM CDT) Pathologist [facility] CEA 3.2 <=5.0 ng/mL Comment: Interpretive Data: Reference Range: Non-Smokers: 0.0 ? 5.0 ng/mL Smokers: 0.0 ? 6.5 ng/mL [employer] CEA assay procedure was used. Results from different manufacturers or methods may not be comparable. Serial testing should be performed using the same method. Current interpretive data was last revised 2021. Blood 10/02/2023 4:37 PM CDT 10/02/2023 6:15 PM CDT eMlissa Rhodes MD LAB BLOOD ORDERABLES Samantha l Result Performing Organization Address [facility] Co de Phone Number [facility] [place] [address] * [id number], Tumor Marker (10/02/2023 4:37 PM CDT) Pathologist [facility] alpha Fetoprotein <2.0 <=8.3 ng/mL Comment: Interpretive Data [employer] AFP assay procedure was used. Results from different manufacturers or methods may not be comparable. Serial testing should be performed using the same method. 0-1 ??month. ?? AFP concentrations may reach or exceed 100,000 ng/mL after depending on gestational age and weight. 1-3 months ? 50 ? 1000 ng/ml 3-6 months ? 10 ? 500 ng/ml 6-12 months ?3.0 ? 100 ng/ml >1 year ?0.0 ? 8.3 ng/ml References Joe Ojeda et al. ??J. Ped Surg 1978;13:155-156 Julio Flower. et al. Clin Chem Lab Med 2018;57:783-797 Alexa Cisneros et al. ??Clin Chem 2014;4230-2106. Current interpretive data was last revised 2021. Blood 10/02/2023 4:37 PM CDT 10/02/2023 6:15 PM CDT Melissa Rhodes MD LAB BLOOD ORDERABLES Samantha lott Result DIXXWW CRY [facility] Department [place] [address] * Inhibin A and B (10/02/2023 4:37 PM CDT) [facility] Inhibin A <5.0 pg/mL [facility] ref [facility] Comment: REFERENCE VALUE <98 (Premenopausal) <5.0 ??(Postmenopausal) ADDITIONAL INFORMATION This test has been modified from the blacksmith assistant's instructions. Its performance characteristics were determined by [facility] in a manner consistent with CLIA requirements. This test has not been cleared or approved by the U.S. Food and Drug Administration. The testing method is an immunoenzymatic assay manufactured by [employer] and performed on the [employer] DxI 800. Values obtained with different assay methods or kits may be different and cannot be used interchangeably. ? Test results cannot be interpreted as absolute evidence for the presence or absence of malignant disease. ? Inhibin A values are not interpretable in females for the investigation of malignant disease. Inhibin B <10 pg/mL [facility] Comment: REFERENCE VALUE Premenopausal: <108 pg/mL (Follicular) <80 pg/mL (Luteal) Postmenopausal: <12 pg/mL ADDITIONAL INFORMATION The testing method is a manual immunoenzymatic assay manufactured by [employer]. Values obtained with different assay methods or kits may be different and cannot be used interchangeably. If this test is being ordered as a tumor marker, results cannot be interpreted as absolute evidence for the presence or absence of malignant disease. This test was developed and its performance characteristics determined by [facility] in a manner consistent with CLIA requirements. This test has not been cleared or approved by the U.S. Food and Drug Administration. Test Performed by: [place] [address] Aquatics Specialist: Rach Guillermo Ph.D.; CLIA# [id number] Blood 10/02/2023 4:37 PM CDT 10/02/2023 7:29 PM CDT us Melissa Rhodes MD LAB BLOOD ORDERABLES Samantha lott Result GO ROBERT [facility] Department [place] [address] [facility] ref [facility] * Lactate dehydrogenase (LD) (10/02/2023 4:37 PM CDT) Lactate dehydrogenase (LDH) 181 100 - 250 Units/L Blood 10/02/2023 4:37 PM CDT 10/02/2023 6:15 PM CDT Melissa Rhodes MD LAB BLOOD ORDERABLES Samantha l Result Performing Organization Address [facility] de Phone Number [facility] [place] [address] * Cancer antigen 19-9 (10/02/2023 4:37 PM CDT) CA 19-9 ag 9.4 <=35.0 units/mL Comment: Interpretive Data [employer] CA 19-9 assay procedure was used. Results from different manufacturers or methods may not be comparable. Serial testing should be performed using the same method. Blood 10/02/2023 4:37 PM CDT 10/02/2023 6:15 PM CDT Melissa Rhodes MD LAB BLOOD ORDERABLES Samantha l Result Performing Organization Address [facility] de Phone Number [facility] [place] [address] * (ABNORMAL) CA 125 (10/02/2023 4:37 PM CDT) Pathologist [facility] CA 125 ag 104.0(H) 0.0 - 38.1 units/mL Comment: Interpretive Data [employer] CA 125 assay procedure was used. Results from different manufacturers or methods may not be comparable. Serial testing should be performed using the same method. Blood 10/02/2023 4:37 PM CDT 10/02/2023 6:15 PM CDT Melissa Rhodes MD LAB BLOOD ORDERABLES Samantha l Result Performing Organization Address [facility] Co de Phone Number [facility] [place] [address] * Blood culture Blood (10/02/2023 4:37 PM CDT) Report Final Report: No growth Blood 10/02/2023 4:37 PM CDT 10/02/2023 6:45 PM CDT Dung ROBERT - 10/07/2023 7:00 AM CDT From a different site [...] organism identification may be performed using the enavuigene Gram-Positive Blood Culture Assay. This assay detects microbial DNA in positive blood culture broth via hybridization of target DNA to capture oligonucleotides on a microarray. This assay has been cleared by the [place] Food and Drug Administration and its performance characteristics have been verified by the [facility] Microbiology Laboratory. 5. ?For questions about this culture, contact the Microbiology Laboratory at [phone]. Interpretive data was last revised on 2019. us Melissa Rhodes MD LAB MICROBIOLOGY - GENERA L ORDERABLES Final Result GO ROBERT [facility] Department [place] [address] * Blood culture Blood (10/02/2023 4:37 PM CDT) Report Final Report: No growth Blood 10/02/2023 4:37 PM CDT 10/02/2023 6:45 PM CDT Narrative GO ROBERT - 10/07/2023 7:00 AM CDT Collection->Peripheral 1. ?Blood cultures [...] organism identification may be performed using the enavuigene Gram-Positive Blood Culture Assay. This assay detects microbial DNA in positive blood culture broth via hybridization of target DNA to capture oligonucleotides on a microarray. This assay has been cleared by the [place] Food and Drug Administration and its performance characteristics have been verified by the [facility] Microbiology Laboratory. 5. ?For questions about this culture, contact the Microbiology Laboratory at [phone]. Interpretive data was last revised on 2019. us Melissa Rhodes MD LAB MICROBIOLOGY - GENERA L ORDERABLES Final Result [facility] Department [place] [address] * aPTT (10/02/2023 4:37 PM CDT) aPTT 32 28 - 38 sec Comment: Interpretive Data Heparin therapeutic range: 66.0 - 100.0 seconds. Range based on correlation with therapeutic heparin activity range of 0.3 - 0.7 Units/mL. Current interpretive data was last revised on 2022. Blood 10/02/2023 4:37 PM CDT 10/02/2023 6:26 PM CDT Result [facility] Melissa Rhodes MD LAB BLOOD ORDERABLES Samantha l Result Performing Organization Address [facility] de Phone Number [facility] [place] [place] [address] * (ABNORMAL) Protime-INR (10/02/2023 4:37 PM CDT) PT 15.8(H) 9.7 - 13.0 sec INR 1.45(H) 0.90 - 1.20 [facility] Comment: Interpretive data Oral anticoagulant therapeutic ranges: Venous thromboembolism prophylaxis or treatment: 2.0-3.0 CARDIOLOGY Standard range: 2.0-3.0 High-intensity range: 2.5-3.5 Refer to indication-specific guidelines for appropriate target ranges for prosthetic heart valve replacement. Current interpretive data was last revised on 2019. Blood 10/02/2023 4:37 PM CDT 10/02/2023 6:26 PM CDT Result [facility] Melissa Rhodes MD LAB BLOOD ORDERABLES Samantha l Result Performing Organization Address [facility] Co de Phone Number [facility] [place] [place] [address] * (ABNORMAL) Iron profile w/ IBC (10/02/2023 4:37 PM CDT) Iron 16(L) 35 - 145 mcg/dL TIBC 64(L) 250 - 400 mcg/dL [facility] Transferrin saturation 25 20 - 50 % [facility] Blood 10/02/2023 4:37 PM CDT 10/02/2023 6:15 PM CDT Result [facility] Melissa Rhodes MD LAB BLOOD ORDERABLES Samantha l Result Performing Organization Address City/[facility] [place] [address] * Type and screen (10/02/2023 4:37 PM CDT) [facility] ABO Rh O Positive Maira, indirect Negative [facility] Blood 10/02/2023 4:37 PM CDT 10/02/2023 6:46 PM CDT Narrative [facility] - 10/02/2023 8:09 PM CDT Has the patient had Daratumumab or Isatuximab in the past 6 months?->Unknown Melissa Rhodes MD LAB BLOOD BANK TEST ORDER INO Final Result Performing Organization Address [facility] de Phone Number [facility] [place] [place] [address] * (ABNORMAL) CBC with auto differential (10/02/2023 4:37 PM CDT) [facility] WBC 8.5 3.8 - 9.9 K/cumm Hgb 8.1(L) 11.9 - 15.5 g/dL [facility] Hct 25.9(L) 35.6 - 45.5 % [facility] Plt 275 150 - 400 K/cumm [facility] MPV 8.9(L) 9.1 - 12.3 fL [facility] RBC 3.18(L) 3.90 - 5.20 M/cumm [facility] MCV 81.4 81.3 - 96.4 fL [facility] MCH 25.5(L) 27.1 - 33.3 pg [facility] MCHC 31.3(L) 32.3 - 35.7 g/dL [facility] RDW CV 18.2(H) 11.1 - 14.9 % [facility] RDW SD 51.8(H) 35.7 - 48.1 fL [facility] NRBC abs 0.00 0.00 - 0.01 K/cumm [facility] Blood 10/02/2023 4:37 PM CDT 10/02/2023 6:15 PM CDT Melissa Rhodes MD LAB BLOOD ORDERABLES Samantha l Result Performing Organization Address City/[facility] Co de Phone Number [facility] [place] [place] [address] * (ABNORMAL) CRP (acute phase) (10/02/2023 4:37 PM CDT) CRP 41.8(H) <=10.0 mg/L Blood 10/02/2023 4:37 PM CDT 10/02/2023 6:15 PM CDT Melissa Rhodes MD LAB BLOOD ORDERABLES Samantha l Result Performing Organization Address [facility] Co de Phone Number [facility] [place] [place] [address] * (ABNORMAL) Phosphorus (10/02/2023 4:37 PM CDT) Phosphorus, pl 1.4(L) 2.3 - 4.5 mg/dL Blood 10/02/2023 4:37 PM CDT 10/02/2023 6:15 PM CDT Melissa Rhodes MD LAB BLOOD ORDERABLES Samantha l Result Performing Organization Address City/[facility] [place] [address] * Magnesium (10/02/2023 4:37 PM CDT) Magnesium 1.6 1.4 - 2.5 mg/dL Blood 10/02/2023 4:37 PM CDT 10/02/2023 6:15 PM CDT us Melissa Rhodes MD LAB BLOOD ORDERABLES Samantha lott Result [facility] [place] [address] * (ABNORMAL) Comprehensive metabolic panel (10/02/2023 4:37 PM CDT) Sodium 136 135 - 145 mmol/L Potassium, pl 3.1(L) 3.3 - 4.9 mmol/L [facility] Chloride 99 97 - 110 mmol/L [facility] CO2 27 22 - 32 mmol/L [facility] Anion gap 10 2 - 15 mmol/L [facility] BUN 9 6 - 25 mg/dL [facility] Creatinine 0.94 0.60 - 1.10 mg/dL [facility] Glucose 80 70 - 199 mg/dL [facility] Comment: Interpretive Data Fasting glucose >/= [...] interpretive data was last revised 2022. Calcium 9.2 8.5 - 10.3 mg/dL [facility] Bilirubin, total 0.4 0.1 - 1.2 mg/dL [facility] Protein, pl 6.8 6.5 - 8.5 g/dL [facility] Albumin 3.9 3.5 - 5.0 g/dL [facility] Alk phos 67 40 - 130 Units/L [facility] ALT 6(L) 7 - 45 Units/L [facility] AST 16 10 - 45 Units/L [facility] Blood 10/02/2023 4:37 PM CDT 10/02/2023 6:15 PM CDT Melissa Rhoeds MD LAB BLOOD ORDERABLES Samantha l Result Performing Organization Address City/[facility] Co de Phone Number [facility] Department [place] [address] * CT Body Outside Reference (10/02/2023 2:25 PM CDT) Impressions [facility] - 10/02/2023 2:25 PM CDT These images are for Reference purposes only and have not been reviewed by [facility] Radiology. ??There will be no report generated by a [facility] Radiologist. Narrative [facility] - 10/02/2023 2:25 PM CDT EXAMINATION: ??Images For Reference Purposes Only Melissa Rhodes MD IMG CT PROCEDURES Final R esult Performing Organization Address City/[facility] Co de Phone Number [email or web address] documented in this encounter Visit Diagnoses Diagnosis Abdominal pain- Primary Abdominal pain, unspecified site Bowel perforation (HCC) Perforation of intestine Abdominal pain Abdominal pain, unspecified site Pelvic mass Abdominal or pelvic swelling, mass or lump, unspecified site Moderate protein-calorie malnutrition (CMS/HCC) (HCC) Abdominal pain Abdominal pain, unspecified site documented in this encounter Admitting Diagnoses Diagnosis Abdominal pain Abdominal pain, unspecified site documented in this encounter Administered Medications Inactive Administered Medications - up to 3 most recent administrations Medication Order MAR Action Action Date Dose Rate Site acetaminophen (TYLENOL) tablet 1,000 mg 1,000 mg, oral, Every 6 hours PRN, 1st line for pain, Starting on Sabi 10/02/23 at 2153 amoxicillin-clavulanat e (AUGMENTIN) 875-125 mg per tablet 875 mg of amoxicillin 875 mg of amoxicillin, oral, 2 times daily, First dose on 10/04/23 at 0900, Indications: Abdominal/Pelvic InfectionIndications:A bdominal/Pelvic Infection Given 10/04/2023 8:28 AM CDT 875 mg of amoxicillin Carrier Fluids for Secondary Infusion - 0.9% Sodium Chloride 30 mL, intravenous, As needed, For priming tubing and/or flushing, Starting on Sabi 10/02/23 at 1251, 0-250 ml/hr to flush line after IV infusions when no maintenance IV ordered. Infuse 30mL at the same rate as the secondary infusion. Run as primary IV, not intended for KVO. Given 10/03/2023 1:36 AM CDT 30 mL dextrose (D10W) 10% bolus 250 mL 250 mL, intravenous, at 1,000 mL/hr, Administer over 15 Minutes, Every 15 min PRN, blood glucose less than 70 mg/dL and UNABLE to swallow/take PO glucose/juice., Starting on [facility] 10/02/23 at 2133, After treatment for hypoglycemia, recheck BG followed by treatment every 15 minutes until the BG is greater than 100 mg/dL. Then check BG 1 hour post treatment. If BG is less than 100 mg/dL, repeat Q15 minute BG checks and treatment. Call MD for each episode of hypoglycemia., Indications: hypoglycemic disorderIndications:hy poglycemic disorder dextrose 5% and Lactated Ringer's with potassium chloride 20 mEq/L infusion (premix) 150 mL/hr, intravenous, Continuous, Starting on [facility] 10/02/23 at 1345 Restarted 10/03/2023 6:28 PM CDT 150 mL/hr 150 mL/hr Restarted 10/03/2023 12:21 PM CDT 150 mL/hr 150 mL/hr New Bag 10/03/2023 10:39 AM CDT 150 mL/hr 150 mL/hr dextrose gel in packet 15 g 15 g, oral, Every 15 min PRN, low blood sugar, blood glucose less than 70 mg/dL, Starting on [facility] 10/02/23 at 2133, If patient is alert and able to [...] episode of hypoglycemia., Indications: hypoglycemic disorderIndications:hypoglycemic disorder folic acid (FOLVITE) tablet 1 mg 1 mg, oral, Daily, First dose on [facility] 10/04/23 at 0900, For 7 days, Each tablet contains 1 mg of folic acid (1.67 mg DFE). Given 10/04/2023 8:19 AM CDT 1 mg glucagon injection 1 mg 1 mg, intramuscular, Every 30 min PRN, low blood sugar, blood glucose less than 70 mg/dL AND no IV access AND unable to take PO glucose/juice., Starting on Sabi 10/02/23 at 2133, After Glucagon is administered, position patient on [...] 1 mL SWFI. Use immediately following reconstitution. ioversoL (OPTIRAY 350) syringe 75 mL 75 mL, intravenous, Once in imaging, contrast, Starting on Sabi 10/02/23 at 2221, For 1 dose Contrast Given 10/02/2023 10:21 PM CDT 69 mL magnesium sulfate 2 g/50 mL in water (premix) 2 g 2 g, intravenous, Administer over 60 Minutes, Once, On Fri10/03/23 at 0115, For 1 dose, Give before K New Bag 10/03/2023 1:37 AM CDT 2 g mesalamine (CANASA) suppository 1,000 mg 1,000 mg, rectal, Nightly, First dose on Fri10/03/23 at 2215 Given 10/04/2023 2:52 AM CDT 1,000 mg metroNIDAZOLE (FLAGYL) tablet 500 mg 500 mg, oral, 2 times daily, First dose on 10/04/23 at 0900, For 14 days, Indications: Abdominal/Pelvic InfectionIndications:Abdominal/Pel osbaldo Infection Given 10/04/2023 8:28 AM CDT 500 mg multivitamin with folic acid 400 mcg tablet 1 tablet 1 tablet, oral, Daily, First dose on 10/04/23 at 0900 Given 10/04/2023 8:19 AM CDT 1 tablet ondansetron (ZOFRAN) injection 4 mg 4 mg, intravenous, Administer over 2 Minutes, Every 6 hours PRN, nausea, vomiting, if not tolerating PO, Starting on Sabi 10/02/23 at 1251, Indications: Nausea and VomitingIndications:Nausea and Vomiting Given 10/04/2023 8:31 AM CDT 4 mg ondansetron ODT (ZOFRAN-ODT) disintegrating tablet 4 mg 4 mg, oral, Every 6 hours PRN, nausea, vomiting, Starting on Sabi 10/02/23 at 1251, Indications: Nausea and VomitingIndications:Nausea and Vomiting oxyCODONE (ROXICODONE) tablet 5 mg 5 mg, oral, Every 4 hours PRN, breakthrough pain, Starting on Fri10/02/23 at 2153, Indications: PainIndications:Pain pantoprazole DR (PROTONIX) extended release tablet 40 mg 40 mg, oral, Daily, First dose on Fri10/02/23 at 1345, Do not crush, chew, cut, dissolve, open or otherwise manipulate tablet/capsule., Indications: GI BleedIndications:GI Bleed Given 10/04/2023 8:19 AM CDT 40 mg Given 10/03/2023 9:00 AM CDT 40 mg piperacillin-tazobactam (ZOSYN) 3.375 gram/65 mL in sodium chloride 0.9% (premix) 3.375 g 3.375 g, intravenous, at 130 mL/hr, Administer over 30 Minutes, Every 6 hours scheduled, First dose on Fri10/03/23 at 0315, Indications: Abdominal/Pelvic InfectionIndications:Abdominal/Pel osbaldo Infection New Bag 10/04/2023 6:11 AM CDT 3.375 g 130 mL/hr New Bag 10/04/2023 12:44 AM CDT 3.375 g 130 mL/hr New Bag 10/03/2023 5:58 PM CDT 3.375 g 130 mL/hr potassium chloride ER (KLOR-CON) extended release tablet 30 mEq 30 mEq, oral, Once, On Fri10/03/23 at 1700, For 1 dose, Tablets should not be crushed, chewed, dissolved, or otherwise manipulated. Capsules may be opened and sprinkled on a spoonful of applesauce or pudding, but the contents of the capsule should not be crushed or chewed. Given 10/03/2023 5:58 PM CDT 30 mEq potassium, sodium phosphates (PHOS-NAK) 280-160-250 mg packet 1 packet 1 packet, oral, Once, On Fri10/03/23 at 1700, For 1 dose, Each packet contains elemental phosphorus 250 mg (8 mmol), potassium 280 mg (7.1 mEq), and sodium 160 mg (6.9 mEq)., Indications: hypophosphatemia, hypokalemiaIndications:hypophosphatemia,hyp okalemia Given 10/03/2023 5:58 PM CDT 1 packet pyridoxine (VITAMIN B-6) tablet 100 mg 100 mg, oral, Daily, First dose on 10/04/23 at 0900, For 5 days Given 10/04/2023 8:19 AM CDT 100 mg sodium chloride 0.9% flush 0.5-20 mL 0.5-20 mL, intra-catheter, Every 8 hours scheduled, First dose on Sabi 10/02/23 at 1400, Flush volume based on line type and size. Given 10/04/2023 5:45 AM CDT 10 mL Given 10/04/2023 12:40 AM CDT 10 mL sodium chloride 0.9% flush 5-10 mL 5-10 mL, intra-catheter, Every 12 hours scheduled, First dose on Fri10/02/23 at 1345, Flush volume based on line type, size, and protocol. Given 10/03/2023 8:30 PM CDT 10 mL sodium chloride 0.9% infusion 30 mL/hr, intravenous, Continuous, Starting on Fri10/03/23 at 0200 New Bag 10/03/2023 2:42 AM CDT 30 mL/hr 30 mL/hr sulfamethoxazole-trimeth oprim (BACTRIM DS) 800-160 mg per tablet 160 mg of trimethoprim 160 mg of trimethoprim, oral, 2 times daily, First dose on Sabi 10/02/23 at 2100, For 9 doses, Indications: Urinary Tract/Genitourinary Infection, ESBLIndications:Urinary Tract/Genitourinary Infection,ESBL Given 10/02/2023 8:33 PM CDT 160 mg of trimethoprim sulfamethoxazole-trimeth oprim (BACTRIM DS) 800-160 mg per tablet 160 mg of trimethoprim 160 mg of trimethoprim, oral, 2 times daily, First dose (after last modification) on 10/04/23 at 0900, For 7 doses, Indications: Urinary Tract/Genitourinary Infection, ESBLIndications:Urinary Tract/Genitourinary Infection,ESBL Given 10/04/2023 8:19 AM CDT 160 mg of trimethoprim thiamine (VITAMIN B1) tablet 100 mg 100 mg, oral, Daily, First dose on 10/04/23 at 0900, For 7 days Given 10/04/2023 8:19 AM CDT 100 mg documented in this encounter Discontinued Medications Medication Sig Discontinue Reason Start Date End Da te amoxicillin-clavulana te (AUGMENTIN) 875-125 mg per tabletIndications:Abd ominal/Pelvic Infection Take 1 tablet (875 mg of amoxicillin total) by mouth 2 (two) times a day 10/04/2023 10/04/2023 metroNIDAZOLE (FLAGYL) 500 mg tabletIndications:Abd ominal/Pelvic Infection Take 1 tablet (500 mg total) by mouth 2 (two) times a day 10/04/2023 10/04/2023 sulfamethoxazole-trim ethoprim (BACTRIM DS) 800-160 mg per tablet Take by mouth 2 (two) times a day Stop Taking at Discharge 10/02/2023 10/04/2023 documented as of this encounter Active and Recently Administered Medications Times are shown in CDT. Scheduled Medication Order 10/02/2023 10/03/2023 10/04/2023 amoxicillin-clavulanate (AUGMENTIN) 875-125 mg per tablet 875 mg of amoxicillin 875 mg of amoxicillin, oral, 2 times daily, First dose on 10/04/23 at 0900, Indications: Abdominal/Pelvic Infection 0828 (Given - Provider: Layton Montoya RN) folic acid (FOLVITE) tablet 1 mg 1 mg, oral, Daily, First dose on 10/04/23 at 0900, For 7 days, Each tablet contains 1 mg of folic acid (1.67 mg DFE). 0819 (Given - Provider: Layton Montoya RN) magnesium sulfate 2 g/50 mL in water (premix) 2 g (COMPLETED) 2 g, intravenous, Administer over 60 Minutes, Once, On Fri10/03/23 at 0115, For 1 dose, Give before K 0137 (New Bag - Provider: Clary Musa RN)0238 (Stopped - Provider: Clary Musa RN) mesalamine (CANASA) suppository 1,000 mg 1,000 mg, rectal, Nightly, First dose on Fri10/03/23 at 2215 0252 (Given - Provider: Stephanie Dorantes RN) metroNIDAZOLE (FLAGYL) tablet 500 mg 500 mg, oral, 2 times daily, First dose on 10/04/23 at 0900, For 14 days, Indications: Abdominal/Pelvic Infection 0828 (Given - Provider: Layton Montoya, RN) multivitamin with folic acid 400 mcg tablet 1 tablet 1 tablet, oral, Daily, First dose on 10/04/23 at 0900 0819 (Given - Provider: Layton Montoya, RN) pantoprazole DR (PROTONIX) extended release tablet 40 mg 40 mg, oral, Daily, First dose on Sabi 10/02/23 at 1345, Do not crush, chew, cut, dissolve, open or otherwise manipulate tablet/capsule., Indications: GI Bleed 1546 (Not Given - Provider: Charlene Tyler RN - Reason: NPO) 0900 (Given - Provider: Charlene Tyler RN) 0819 (Given - Provider: Layton Montoya, ABHAY) piperacillin-tazobactam (ZOSYN) 3.375 gram/65 mL in sodium chloride 0.9% (premix) 3.375 g (CANCELED) 3.375 g, intravenous, at 130 mL/hr, Administer over 30 Minutes, Every 6 hours scheduled, First dose on Fri10/03/23 at 0315, Indications: Abdominal/Pelvic Infection 0407 (New Bag - Provider: Clary Musa RN)0500 (Stopped - Provider: Clary Musa RN)1151 (New Bag - Provider: Charlene Tyler RN)1221 (Stopped - Provider: Charlene Tyler RN)1758 (New Bag - Provider: Charlene Tyler RN)1828 (Stopped - Provider: Charlene Tyler RN) 0044 (New Bag - Provider: Stephanie Dorantes RN)0114 (Stopped - Provider: Stephanie Dorantes, RN)0611 (New Bag - Provider: Stephanie Dorantes, RN)0641 (Stopped - Provider: Stephanie Dorantes, RN) polyethylene glycol (MIRALAX) packet 17 g 17 g, oral, Daily, First dose on Fri10/02/23 at 1345, Hold if diarrhea., Indications: constipation 1314 (Not Given - Provider: Wilma Pereira RN - Reason: Contraindicated) 0718 (Not Given - Provider: Charlene Tyler RN - Reason: NPO) 08 (Not Given - Provider: Layton Montoya RN - Reason: Order parameters not met) potassium chloride ER (KLOR-CON) extended release tablet 30 mEq (COMPLETED) 30 mEq, oral, Once, On Fri10/03/23 at 1700, For 1 dose, Tablets should not be crushed, chewed, dissolved, or otherwise manipulated. Capsules may be opened and sprinkled on a spoonful of applesauce or pudding, but the contents of the capsule should not be crushed or chewed. 1757 (Given - Provider: Charlene Tyler RN) potassium, sodium phosphates (PHOS-NAK) 280-160-250 mg packet 1 packet (COMPLETED) 1 packet, oral, Once, On Fri10/03/23 at 1700, For 1 dose, Each packet contains elemental phosphorus 250 mg (8 mmol), potassium 280 mg (7.1 mEq), and sodium 160 mg (6.9 mEq)., Indications: hypophosphatemia, hypokalemia 1757 (Given - Provider: Charlene Tyler RN) pyridoxine (VITAMIN B-6) tablet 100 mg 100 mg, oral, Daily, First dose on Fri10/04/23 at 0900, For 5 days 08 (Given - Provider: Layton Montoya RN) sodium chloride 0.9% flush 0.5-20 mL 0.5-20 mL, intra-catheter, Every 8 hours scheduled, First dose on Sabi 10/02/23 at 1400, Flush volume based on line type and size. 1314 (Not Given - Provider: Wilma Pereira RN - Reason: Other)2252 (Not Given - Provider: Clary Musa RN - Reason: IV Infusing) 0513 (Not Given - Provider: Clary Musa RN - Reason: IV Infusing)1400 (Hold - Provider: Charlene Tyler RN - Reason: IV Infusing)2201 (Not Given - Provider: Luz Maria Bell RN - Reason: IV Infusing) 0040 (Given - Provider: Stephanie Dorantes, RN)0545 (Given - Provider: Stephanie Dorantes RN) sodium chloride 0.9% flush 5-10 mL 5-10 mL, intra-catheter, Every 12 hours scheduled, First dose on Sabi 10/02/23 at 1345, Flush volume based on line type, size, and protocol. 1547 (Not Given - Provider: Charlene Tyler RN - Reason: Loss of IV access)2252 (Not Given - Provider: Clary Musa RN - Reason: IV Infusing) 0718 (Not Given - Provider: Charlene Tyler RN - Reason: IV Infusing)2030 (Given - Provider: Luz Maria Bell RN) 0820 (Not Given - Provider: Layton Montoya RN - Reason: IV Infusing) sulfamethoxazole-trimet hoprim (BACTRIM DS) 800-160 mg per tablet 160 mg of trimethoprim (CANCELED) 160 mg of trimethoprim, oral, 2 times daily, First dose on Sabi 10/02/23 at 2100, For 9 doses, Indications: Urinary Tract/Genitourinary Infection, ESBL 2032 (Given - Provider: Clary Musa RN) 59 (Not Given - Provider: Charlene Tyler RN - Reason: Order Discontinued - Comment: patient stated CRS said they were changing antibiotic, spoke with Marcellus OAKLEY, PO bactrim to be discontinued) sulfamethoxazole-trimet hoprim (BACTRIM DS) 800-160 mg per tablet 160 mg of trimethoprim 160 mg of trimethoprim, oral, 2 times daily, First dose (after last modification) on 10/04/23 at 0900, For 7 doses, Indications: Urinary Tract/Genitourinary Infection, ESBL 0819 (Given - Provider: Layton Montoya, ABHAY) thiamine (VITAMIN B1) tablet 100 mg 100 mg, oral, Daily, First dose on 10/04/23 at 0900, For 7 days 08 (Given - Provider: Layton Montoya, ABHAY) Continuous Medication Order 10/02/2023 10/03/2023 10/04/2023 dextrose 5% and Lactated Ringer's with potassium chloride 20 mEq/L infusion (premix) 150 mL/hr, intravenous, Continuous, Starting on Fri10/02/23 at 1345 1723 (New Bag - Provider: Charlene Tyler RN) 0243 (New Bag - Provider: Clary Musa RN)1039 (New Bag - Provider: Charlene Tyler RN)1151 (Stopped - Provider: Charlene Tyler RN)1221 (Restarted - Provider: Charlene Tyler RN)1758 (Stopped - Provider: Charlene Tyler RN)1828 (Restarted - Provider: Charlene Tyler RN) 1843 (Due: Stopped) sodium chloride 0.9% infusion 30 mL/hr, intravenous, Continuous, Starting on Fri10/03/23 at 0200 0242 (New Bag - Provider: Clary Musa RN - Comment: stopped) 1843 (Due: Stopped) PRN Medication Order 10/02/2023 10/03/2023 10/04/2023 acetaminophen (TYLENOL) tablet 1,000 mg 1,000 mg, oral, Every 6 hours PRN, 1st line for pain, Starting on Fri10/02/23 at 2153 Carrier Fluids for Secondary Infusion - 0.9% Sodium Chloride 30 mL, intravenous, As needed, For priming tubing and/or flushing, Starting on Fri10/02/23 at 1251, 0-250 ml/hr to flush line after IV infusions when no maintenance IV ordered. Infuse 30mL at the same rate as the secondary infusion. Run as primary IV, not intended for KVO. 0136 (Given - Provider: Clary Musa RN) dextrose (D10W) 10% bolus 250 mL(Linked Group 1) 250 mL, intravenous, at 1,000 mL/hr, Administer over 15 Minutes, Every 15 min PRN, blood glucose less than 70 mg/dL and UNABLE to swallow/take PO glucose/juice., Starting on Fri10/02/23 at 2133, After treatment for hypoglycemia, recheck BG followed by treatment every 15 minutes until the BG is greater than 100 mg/dL. Then check BG 1 hour post treatment. If BG is less than 100 mg/dL, repeat Q15 minute BG checks and treatment. Call MD for each episode of hypoglycemia., Indications: hypoglycemic disorder dextrose gel in packet 15 g(Linked Group 1) 15 g, oral, Every 15 min PRN, low blood sugar, blood glucose less than 70 mg/dL, Starting on Sabi 10/02/23 at 2133, If patient is alert and able to [...] unable to take PO glucose/juice., Starting on Sabi 10/02/23 at 2133, After Glucagon is administered, position patient on [...] 1 mL SWFI. Use immediately following reconstitution. ioversoL (OPTIRAY 350) syringe 75 mL (COMPLETED) 75 mL, intravenous, Once in imaging, contrast, Starting on Sabi 10/02/23 at 2221, For 1 dose 2221 (Contrast Given - Provider: Silvia Jordan, RT) ondansetron (ZOFRAN) injection 4 mg(Linked Group 2) 4 mg, intravenous, Administer over 2 Minutes, Every 6 hours PRN, nausea, vomiting, if not tolerating PO, Starting on Sabi 10/02/23 at 1251, Indications: Nausea and Vomiting 0831 (Given - Provider: Layton Montoya RN) ondansetron ODT (ZOFRAN-ODT) disintegrating tablet 4 mg(Linked Group 2) 4 mg, oral, Every 6 hours PRN, nausea, vomiting, Starting on Sabi 10/02/23 at 1251, Indications: Nausea and Vomiting 0831 (See Alternativ e - Provider: Layton Montoya RN) oxyCODONE (ROXICODONE) tablet 5 mg 5 mg, oral, Every 4 hours PRN, breakthrough pain, Starting on Sabi 10/02/23 at 2153, Indications: Pain sodium chloride 0.9% flush 0.5-20 mL 0.5-20 mL, intra-catheter, As needed, line care, Starting on Sabi 10/02/23 at 1251, Flush volume based on line type and size. Flush before and after each use. sodium chloride 0.9% flush 10-20 mL 10-20 mL, intra-catheter, As needed, line care, with each use, Starting on Sabi 10/02/23 at 1251, Flush volume based on line type, size, and protocol. Linked Groups Order Group 1: dextrose gel in packet 15 gJump to med 15 g, oral, Every 15 min PRN, low blood sugar, blood glucose less than 70 mg/dL, Starting on Sabi 10/02/23 at 2133, If patient is alert and able to [...] UNABLE to swallow/take PO glucose/juice., Starting on Sabi 10/02/23 at 2133, After treatment for hypoglycemia, recheck BG followed by treatment every 15 minutes until the BG is greater than 100 mg/dL. Then check BG 1 hour post treatment. If BG is less than 100 mg/dL, repeat Q15 minute BG checks and treatment. Call MD for each episode of hypoglycemia., Indications: hypoglycemic disorder Group 2: ondansetron ODT (ZOFRAN-ODT) disintegrating tablet 4 mgJump to med 4 mg, oral, Every 6 hours PRN, nausea, vomiting, Starting on Sabi 10/02/23 at 1251, Indications: Nausea and Vomiting Or ondansetron (ZOFRAN) injection 4 mgJump to med 4 mg, intravenous, Administer over 2 Minutes, Every 6 hours PRN, nausea, vomiting, if not tolerating PO, Starting on Sabi 10/02/23 at 1251, Indications: Nausea and Vomiting documented in this encounter Orders Medications Ordered That Justin ht Not Have Been Administered Count Last Ordered Date First Ordered Date acetaminophen (TYLENOL) tablet 1,000 mg 1 0 10/02/2023 dextrose (D10W) 10% bolus 250 mL 1 10/02/19 dextrose gel in packet 15 g 1 10/02/2023 glucagon injection 1 mg 1 10/02/2023 insulin lispro (HumaLOG, ADM ELOG) 100 unit/mL injection 0-10 Units 1 10/02/2023 ondansetron ODT (ZOFRAN-ODT) disintegrating tablet 4 mg 1 10/02/2023 oxyCODONE (ROXICODONE) tablet 5 mg 1 2023 polyethylene glycol (MIRALAX) packet 17 g 1 10/02/2023 sodium chloride 0.9% flush 0.5-20 mL 1 09/17 sodium chloride 0.9% flush 10-20 mL 1 10/01 Lab Orders Without Results Count Last Ordered D ate First Ordered Date POCT GLUCOSE DEVICE 2 10/03/2023 10/02/19 Nursing Count Last Ordered Date First Orde red Date WEIGH PATIENT 1 10/02/2023 Consult Count Last Ordered Date First Orde red Date IP CONSULT TO GASTROENTEROLOGY 1 10/03/2023 IP CONSULT TO COLORECTAL SURGERY 1 10/02/19 IP CONSULT TO NUTRITION SERVICES 10/02/19 IP CONSULT TO VASCULAR ACCESS TEAM 1 2023 Admission Count Last Ordered Date First Orde red Date ADMIT TO INPATIENT 1 10/03/2023 INITIATE OBSERVATION SERVICES 1 10/02/2023 Discharge Count Last Ordered Date First Orde red Date DISCHARGE PATIENT 1 10/04/2023 CORE MEASURES Count Last Ordered Date First Ord ered Date REASON FOR NO VTE PROPHYLAXIS AT ADMISSION 1 10/02/2023 ADT Patient Update Count Last Ordered Date Firs t Ordered Date PROVIDER TREATMENT TEAM 1 10/02/2023 documented in this encounter Additional Health Concerns Infection Onset Date Last Indicated Resolved Time C. difficile suspected 10/03/2023 10/03/202310/02 7:41 PM CDT C. difficile suspected 10/03/2023 10/03/202310/02 10:17 PM CDT documented as of this encounter Care Teams Spring Winder Relationship Specialty Start Date End Date Bethany Arriola MD [address] [place] [address] PCP - General Obstetrics and Gynecology 10/02/2310/18 Bethany Arriola MD [address] [place] [address] Obstetrics and Gynecology 09/15/2310/18 documented as of this encounter
--- OUTSIDE RECORDS SUMMARY | 2024-02-08 04:09 | XMS_ITS | Encounter Summary ---
Author Organization [facility] Healthcare Address [address] [place] [address] Care Team Providers Care Caul Fat Puller Name Role Phone Bethany Arriola MD Unavailable [phone] Bethany Arriola MD Primary Care Provider Bigg Delarosa MD Unavailable [phone] Jefe Choe MD Unavailable + Encounter Details Date Type Department Care Team (Late st Contact Info) Description 10/23/2023 Telephone [facility] Gy[facility]ologic On[facility] ([facility]) [address] [place] [id number] Marily Stephenson, RN Social History Tobacco Use Types Packs/Day [...] encounter Miscellaneous Notes * Telephone Encounter - Marily Stephenson RN - 10/23/2023 4:42 PM CDT Received a VM from the patient reporting she was seen by Dr. Rhodes today and she forgot to ask for a letter to extend her FMLA faxed to [employer] at [phone]. Attempted to call the patient back with no answer. documented in this encounter Plan of Treatment Not on file documented as of this encounter Visit Diagnoses Not on filedocumented in this encounter Care Teams Caul Fat Puller Relationship Specialty Start Date End Date Bethany Arriola MD [address] [place] [address] PCP - General Obstetrics and Gynecology 10/02/2310/18 Bethany Arriola MD [address] [place] [address] Obstetrics and Gynecology 09/15/2310/18 Bigg Delarosa MD [address] [place] [address] Referring Physician Gastroenterology 10/15/23 Jefe Choe MD [address] [place] [address] Referring Physician Gastroenterology 10/15/23 documented as of this encounter
--- OUTSIDE RECORDS SUMMARY | 2024-02-08 04:09 | XMS_ITS | Encounter Summary ---
Author Organization [facility] Healthcare Address [address] [place] [address] Care Team Providers Care Production Roustabout Name Role Phone Bethany Arriola MD Unavailable [phone] Bethany Arriola MD Primary Care Provider Bigg Delarosa MD Unavailable Jefe Choe MD Unavailable + Reason for Referral * MRI/CAT/PET Scan (Routine) - Closed Specialty Diagnoses / Procedures Referred By Contac t Referred To Contact Radiology Diagnoses Abdominal pain Pelvic mass Procedures CT Abdomen Pelvis W Contrast Melissa Rhodes MD [address] [place] [id number] [place] [address] Phone: tel: fax: [address] [phone] Referral ID Status Reason Start Date Expiration Date Visits Re quested Visits Authorized [id number] Closed 10/07/2023 11/05/2024 1 1 Reason for Visit * MRI/CAT/PET Scan (Routine) - Closed Specialty Diagnoses / Procedures Referred By Contac t Referred To Contact Radiology Diagnoses Abdominal pain Pelvic mass Procedures CT Abdomen Pelvis W Contrast Melissa Rhodes MD [address] [place] [id number] [place] [address] Phone: tel: fax: [facility] [address] [facility] [place] [address] Referral ID Status Reason Start Date Expiration Date Visits Re quested Visits Authorized [id number] Closed 10/07/2023 11/05/2024 1 1 Encounter Details Date Type Department Care Team (Latest Contact Info) Description 10/23/2023 7:00 AM CDT - 10/23/2023 11:59 PM CDT Hospital Encounter [facility] Radiology [facility] [address] [place] [address] Melissa Rhodes MD [address] [place] [id number] [place] [address] Abdominal pain; Pelvic mass Discharge Disposition: Discharge [...] (40 mg total) by mouth daily 09/30/2023 acetaminophen 500 mg capsule Take 2 capsules (1,000 mg total) by mouth every 6 (six) hours as needed for pain 30 tablet 10/04/2023 11/06/19 24 amoxicillin-clav ulanate (AUGMENTIN) 875-125 mg per tabletIndication s:Abdominal/Pelv ic Infection Take 1 tablet (875 mg of amoxicillin total) by mouth 2 (two) times a day 60 tablet 3 10/04/2023 11/06/19 24 ferrous sulfate 325 mg (65 mg of elemental iron) tablet Take 1 tablet (325 mg total) by mouth daily with breakfast 30 tablet 11 10/04/2023 12/30/19 24 mesalamine (CANASA) 1,000 mg suppository Insert 1 suppository (1,000 mg total) into the rectum nightly 30 suppository 10/08/2023 12/30/19 24 metFORMIN (GLUCOPHAGE) 500 mg tablet Take 1 tablet (500 mg total) by mouth daily with breakfast 07/16/2023 11/05/19 24 metroNIDAZOLE (FLAGYL) 500 mg tabletIndication s:Abdominal/Pelv ic Infection Take 1 tablet (500 mg total) by mouth 2 (two) times a day 60 tablet 1 10/04/2023 11/06/19 24 triamcinolone (KENALOG) 0.1 % paste 08/01/2023 11/26/19 24 documented as of this encounter Discharge Disposition Disposition Code Departure Means Destination Discharge to home or self care documented in this encounter Plan of Treatment Not on file documented as of this encounter Procedures Procedure Name Priority Date/Time Associated Diagnosis Comments CT ABDOMEN PELVIS W CONTRAST Schedule Routine, Read Routine (OP Routine) 10/23/2023 7:54 AM CDT Abdominal pain Pelvic mass documented in this encounter Results * CT Abdomen Pelvis W Contrast (10/23/2023 7:54 AM CDT) Anatomical Region Laterality Modality Body N/A Computed Tomogra phy 10/23/2023 9:47 AM CDT Impressions 10/23/2023 8:11 PM CDT 1. ??Persistent findings of diverticulitis complicated by contained colonic microperforation with slightly increased wall thickening and adjacent stranding of the sigmoid and descending colon in the region of microperforation. No evidence of free pneumoperitoneum. 2. ??No significant interval change in a large cystic mass with a few thin septations in the right pelvis/adnexa. 3. ??3. ??Small right pleural effusion, slightly increased from prior. Dictated by: Flakita Bowles M.D. The radiology attending physician has personally reviewed this study, and had reviewed and/or edited this written report and agrees with it. Electronically signed by: Rome Hinojosa M.D. Narrative 10/23/2023 8:11 PM CDT EXAMINATION: ??Computed tomography of the abdomen and pelvis with intravenous contrast HISTORY: Newly diagnosed pelvic/adnexal mass, ulcerative colitis. Recent episode of diverticulitis with colonic microperforation TECHNIQUE: ??Transaxial computed tomographic images of the abdomen and pelvis were obtained with intravenous contrast according to the standard protocol after the uneventful administration of 75 mL Opti-Ray 350 intravenous contrast. COMPARISON: CT chest abdomen pelvis with contrast 10/02/2023 FINDINGS: There has been interval increase in size of the small right pleural effusion. ??No pneumothorax. ??Heart is normal size. ??No pericardial effusion. No thoracic lymphadenopathy. Thoracic aorta is normal in caliber. Unchanged hypoattenuating lesion in hepatic segment 8 which is likely a cyst. ??Gallbladder is surgically absent. ??Kidneys enhance symmetrically with no hydronephrosis or nephrolithiasis. ??Spleen, adrenal glands and pancreas are normal. Urinary bladder is decompressed. ??Uterus is present. ??Unchanged large right cystic mass in the pelvis/adnexa. There is increased wall thickening and fat stranding in the region of the descending colon surrounding the contained microperforation. No intraperitoneal free air. No drainable fluid collection. No bowel obstruction. Abdominal aorta is normal caliber with atherosclerotic calcifications. No pelvic or abdominal lymphadenopathy. No suspicious osseous lesion. Procedure Note Rome Hinojosa MD PhD - 10/23/2023 EXAMINATION: Computed tomography of the abdomen and pelvis with intravenous contrast HISTORY: Newly diagnosed pelvic/adnexal mass, ulcerative colitis. Recent episode of diverticulitis with colonic microperforation TECHNIQUE: Transaxial computed tomographic images of the abdomen and pelvis were obtained with intravenous contrast according to the standard protocol after the uneventful administration of 75 mL Opti-Ray 350 intravenous contrast. COMPARISON: CT chest abdomen pelvis with contrast 10/02/2023 FINDINGS: There has been interval increase in size of the small right pleural effusion. No pneumothorax. Heart is normal size. No pericardial effusion. No thoracic lymphadenopathy. Thoracic aorta is normal in caliber. Unchanged hypoattenuating lesion in hepatic segment 8 which is likely a cyst. Gallbladder is surgically absent. Kidneys enhance symmetrically with no hydronephrosis or nephrolithiasis. Spleen, adrenal glands and pancreas are normal. Urinary bladder is decompressed. Uterus is present. Unchanged large right cystic mass in the pelvis/adnexa. There is increased wall thickening and fat stranding in the region of the descending colon surrounding the contained microperforation. No intraperitoneal free air. No drainable fluid collection. No bowel obstruction. Abdominal aorta is normal caliber with atherosclerotic calcifications. No pelvic or abdominal lymphadenopathy. No suspicious osseous lesion. IMPRESSION: 1. Persistent findings of diverticulitis complicated by contained colonic microperforation with slightly increased wall thickening and adjacent stranding of the sigmoid and descending colon in the region of microperforation. No evidence of free pneumoperitoneum. 2. No significant interval change in a large cystic mass with a few thin septations in the right pelvis/adnexa. 3. 3. Small right pleural effusion, slightly increased from prior. Dictated by: Flakita Bowles M.D. The radiology attending physician has personally reviewed this study, and had reviewed and/or edited this written report and agrees with it. Electronically signed by: Rome Hinojosa M.D. Melissa Rhodes MD IMG CT PROCEDURES Final R esult documented in this encounter Visit Diagnoses Diagnosis Abdominal pain Abdominal pain, unspecified site Pelvic mass Abdominal or pelvic swelling, mass or lump, unspecified site documented in this encounter Administered Medications Inactive Administered Medications - up to 3 most recent administrations Medication Order MAR Action Action Date Dose Rate Site ioversoL (OPTIRAY 350) syringe 75 mL 75 mL, intravenous, Once in imaging, contrast, Starting on Sabi 10/23/23 at 0747, For 1 dose Contrast Given 10/23/2023 7:53 AM CDT 75 mL documented in this encounter Orders Medications Ordered That Justin ht Not Have Been Administered Count Last Ordered Date First Ordered Date ioversoL (OPTIRAY 350) syringe 75 mL 1 06/2023 documented in this encounter Care Teams Production Roustabout Relationship Specialty Start Date End Date Bethany Arriola MD [address] [place] [address] PCP - General Obstetrics and Gynecology 10/02/2310/18 Bethany Arriola MD [address] [place] [address] Obstetrics and Gynecology 09/15/2310/18 Bigg Delarosa MD [address] [place] [address] Referring Physician Gastroenterology 10/15/23 Jefe Choe MD [address] [place] [address] Referring Physician Gastroenterology 10/15/23 documented as of this encounter
--- OUTSIDE RECORDS SUMMARY | 2024-02-08 04:09 | XMS_ITS | Encounter Summary ---
Author Organization [facility] Address [address] [facility] [address] [place] [address] Phone Care Team Providers Care Bridge Gang Worker Name Role Phone Bethany Arriola MD Unavailable [phone] Bethany Arriola MD Primary Care Provider Bigg Delarosa MD Unavailable [phone] Jefe Choe MD Unavailable + Reason for Visit * Consultation (Routine) - Pending Review Specialty Diagnoses / Procedures Referred By Elizabeth gregory Referred To Contact Gastroenterology Diagnoses History of chronic ulcerative colitis Referral, Self [facility] (All Locations) Referral ID Status Reason Start Date Expiration Date Visits Requested Visits Authorized [id number] Pending Review Specialty Services Required 10/15/2023 11/13/2024 12 12 Encounter Details Date Type Department Care Team (Late st Contact Info) Description 10/27/2023 8:00 AM CDT Office Visit [facility] Gastroenterology [address] [place] [address] Medical Office Building [address] [place] [address] Gildardo Jung MD [address] [place] [address] High risk medications (not anticoagulants) long-term use (Primary Dx); History of chronic ulcerative colitis Social History Tobacco Use Types Packs/Day Years Used Date Smoking Tobacco: Never Tobacco Cessation:Counseling Given: Not Answered AUDIT-C Answer Date Recorded Q1: How often [...] Sign Reading Time Taken Comments Blood Pressure 136/77 10/27/2023 8:03 AM CDT Pulse 65 10/27/2023 8:03 AM CDT Temperature - - Respiratory Rate - - Oxygen Saturation 99% 10/27/2023 8:03 AM CDT Inhaled Oxygen Concentration - - Weight 63 kg (139 lb) 10/27/2023 8:03 AM CDT Height 156.2 cm (5' 1.5 ) 10/27/2023 8:03 AM CDT Body Mass Index 25.84 10/27/2023 8:03 AM CDT documented in this encounter Progress Notes * Yunior Crespo MD - 10/27/2023 8:00 AM CDT Images from the original note were not included. IBD Clinic Initial Consultation Note The patient is referred for evaluation of the following: inflammatory bowel disease. History of Present Illness (HPI) Farhana Russo is a 63 y.o. F with a history of UC ( diagnosed 2022) newly diagnosed adnexal mass and recent episode of diverticulitis c/b colonic microperforation. She presents for evaluation of her IBD. Patient first encountered our GI service when [...] and colorectal surgery was consulted who recommended conservativemanagement but also recommended GI engagement given concern [...] this wasn't done prior to discharge. She states that she has it scheduled for 11/10. She has been on antibiotics since discharge but her most recent CTAP 10/23/23 revealed persistent findings of diverticulitis complicated by contained colonic microperforation with slightly increased wall thickening and adjacent stranding of the sigmoid and descending colon in the region of microperforation. She reports today that she continues to have episodes of tenesmus with mucus per rectum. She sometimes wakes up 3-4x at night but can sometimes wake up to 9-10x. She also occasionally has accidents. She denies any abdominal pain. She continues to lose weight in the setting of poor PO intake. Review of Systems Constitutional: Positive for weight loss. HENT: Negative for hearing loss. Eyes: Negative for pain, discharge and redness. Gastrointestinal: Negative for abdominal pain, blood in stool and melena. Change of appetite Musculoskeletal: Negative for joint pain. Skin: Negative for rash. Neurological: Negative for weakness. Please refer to the HPI for additional, pertinent, systems that were reviewed. IBD history: Year of diagnosis: 2022. Year [...] up to 1.7 cm, previously 2.6 cm PMH Past Medical History: Diagnosis Date Diabetes mellitus (HCC) Hypertension Past Surgical History: Procedure Laterality Date CHOLECYSTECTOMY 08/2023 TUBAL LIGATION ALLERGIES Allergies Allergen Reactions Azithromycin Rash MEDICATIONS Current Outpatient Medications Medication Sig Dispense Refill acetaminophen 500 mg capsule Take 2 capsules (1,000 mg total) by mouth every 6 (six) hours as needed for pain (Patient not taking: Reported on 10/23/2023) 30 tablet 0 amoxicillin-clavulanate (AUGMENTIN) 875-125 mg [...] mg total) by mouth daily with breakfast metroNIDAZOLE (FLAGYL) 500 mg tablet Take 1 tablet (500 mg total) by mouth 2 (two) times a day [address] (PROTONIX) 40 mg EC tablet Take 1 tablet (40 mg total) by mouth daily triamcinolone (KENALOG) 0.1 % paste No current facility-administered medications for this visit. 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 Physical Exam Constitutional: Appearance: She is not toxic-appearing or diaphoretic. HENT: Head: Normocephalic and atraumatic. Nose: No rhinorrhea. Cardiovascular: Pulses: Normal pulses. Musculoskeletal: General: No swelling. Right lower leg: No edema. Skin: Coloration: Skin is not jaundiced. Neurological: Mental Status: She is alert and oriented to person, place, and time. Psychiatric: Behavior: Behavior normal. RESULTS Chem/LFT Lab History Latest Ref Rng & Units 10/02/2023 16:37 10/03/2023 21:40 Labs-Chem/LFT Sodium 135 - 145 mmol/L 136 136 Creatinine 0.60 - 1.10 mg/dL 0.94 0.81 Bilirubin, total 0.1 - 1.2 mg/dL 0.4 0.3 AST 10 - 45 Units/L 16 17 ALT 7 - 45 Units/L 6 6 Alk phos 40 - 130 Units/L 67 66 CrCl- Actual Body Weight (Cockcroft-Gault) 63 73.1 Hematology Lab History Latest Ref Rng & Units 10/02/2023 16:37 10/03/2023 21:40 Labs - Hematology WBC 3.8 - 9.9 K/cumm 8.5 10.4 Total Hb, POC 11.9 - 15.5 g/dL 8.1 7.4 Hct 35.6 - 45.5 % 25.9 24.0 Plt 150 - 400 K/cumm 275 261 Neutrophil abs 1.5 - 6.5 K/cumm 6.5 Lymphocytes, abs 0.8 - 3.3 K/cumm 1.2 Imaging (Last 96 hours) 10/[address] Abdomen Pelvis W Contrast ASSESSMENT AND PLAN Farhana Russo is a 63 y.o. F with a history of UC (diagnosed 2022) newly diagnosed adnexal mass andrecent episode of diverticulitis c/b colonic microperforation. She presents for evaluation of her IBD which has been diagnosed as UC. There is concern that she might actually have Crohn's largely dueto the presence of granulomas on pathology. She also has had a recent diagnosis of diverticulitis c/b a microperforation that has failed to improve despite her being on antibiotics. This is concerning for an alternative diagnosis. The patient has an upcoming MRE, scheduled for 11/10. She will require a colonoscopy in addition to this. Recommendations: Ulcerative colitis -Plan for colonoscopy and MRE - Obtain labs today - Continue Mesalamine for now 2. Sigmoid diverticulitis c/b microperforation -Unimproved despite almost 4 weeks of antibiotics -Continue Augmentin -Plan for colonoscopy to rule out alternative diagnosis. - Recommend that patient preemptively follow up with colorectal surgery in anticipation of possibleneed for a resection down the line. Yunior Crespo MD MPH PGY-5 Gastroenterology Fellow Cosigned by Gildardo Jung MD at 11/09/2023 9:02 PM CDT Associated attestation - Gildardo Jung MD - 11/09/2023 9:02 PM CDT I have seen and examined the patient. I agree with the findings and plan of care as documented in the resident/fellow's note. My total encounter time on 10/27/2023 was 55 minutes which was spent in theactivities documented in the note. This includes time spent prior to the visit and after the visit in direct care of the patient. This time does not include time spent in any separately reportable ser vices. documented in this encounter Plan of Treatment Scheduled Orders Name Type Priority Associated Diagnoses Orde r Schedule Calprotectin, fecal Lab Routine History of chronic ulcerative colitis High risk medications (not anticoagulants) long-term use Expected: 10/27/2023, Expires: 10/26/2024 documented as of this encounter Results * (ABNORMAL) Vitamin D 25 hydroxy (10/27/2023 9:30 AM CDT) Vitamin D 25-OH 19(L) 30 - 80 ng/mL Blood 10/27/2023 9:30 AM CDT 10/27/2023 10:02 AM CDT Gildardo Jung MD LAB BLOOD ORDERABLES Edited R esult - Final [facility] [id number] [employer] [place] [address] * (ABNORMAL) Vitamin B12 (10/27/2023 9:30 AM CDT) Vitamin B12 176(L) 230 - 1,250 pg/mL Comment:Testing performed by : [facility], [facility] [facility], [place]., [address] Blood 10/27/2023 9:30 AM CDT 10/27/2023 12:40 PM CDT Gildardo Jung MD LAB BLOOD ORDERABLES Final Re sult [facility] [address] [employer] [place] [address] * Varicella Zoster IgG antibody Blood (10/27/2023 9:30 AM CDT) VZV IgG Reactive Reactive Comment: Reactive: Results suggest response to immunization or prior exposure to the virus. Testing performed by: [facility], [address] [facility], [place]., [address] Blood 10/27/2023 9:30 AM CDT 10/27/2023 11:36 AM CDT Gildardo Jung MD LAB MICROBIOLOGY - GENERAL OR DERABLES Final Result Performing Organization Address City/[facility]/ZIP Co de Phone Number GO [facility] [address] [employer] [place], [place] [id number] * T-SPOT.TB Blood (10/27/2023 9:30 AM CDT) [facility] Signature T-SPOT.TB Negative SeeBelow Comment: Normal Value: Negative A negative test result does not exclude the possibility of exposure to or infection with Mycobacterium tuberculosis (M. tuberculosis). ??Patients with recent exposure to TB infected individuals exhibiting a negative T-SPOT.TB result should be considered for retesting within 6 weeks or if other relevant clinical symptoms indicate. ??Results from T-SPOT.TB testing must be used in conjunction with each individual's epidemiological history, current medical status, and results of other diagnostic evaluations. ??The T-SPOT.TB test is qualitative and results are reported as positive, borderline or negative, given that the test controls perform as expected. In line with the Centers for Disease Control and Prevention's 2010 recommendation to report quantitative measurements alongside the qualitative result, the laboratory provides spot counts for informational purposes only. ??The T-SPOT.TB test should not be interpreted as a quantitative test. T-SPOT.TB Panel A Spot Count 0 [facility] T-SPOT.TB Panel B Spot Count 0 [facility] T-SPOT.TB Negative Control Passed [facility] T-SPOT.TB Positive Control Passed [facility] Comment: Test Performed at: [facility] [employer] [address] [place] [address] ??[id number] ? BHANU RAE,PHD Blood 10/27/2023 9:30 AM CDT 10/27/2023 6:06 PM CDT Gildardo Jung MD LAB MICROBIOLOGY - GENERAL OR DERABLES Final Result Performing Organization Address [facility]/ZIP Co de Phone Number GO [facility] [address] [employer]. [place] [address] * TPMT activity profile, RBC (10/27/2023 9:30 AM CDT) 6-METHYLTHIOGUANINE RIBOSIDE 3.11 2.70 - 5.84 [facility] ref Lab Interpretation,Comp See Footnote [facility] Comment: *Normal* In this whole blood sample, the profile of activity of thiopurine methyltransferase using three different substrates was normal or essentially normal. ADDITIONAL INFORMATION Liquid Chromatography-Tandem Mass Spectrometry (LC-MS/MS) This test was developed and its performance characteristics determined by [facility] in a manner consistent with CLIA requirements. This test has not been cleared or approved by the U.S. Food and Drug Administration. Reviewed by See Footnote [facility] Comment: RESULT: Arslan Aguirre M.D., Ph.D. Test Performed by: [place] [address] [employer]: Rach Guillermo Ph.D.; CLIA# [id number] Blood 10/27/2023 9:30 AM CDT 10/27/2023 10:02 AM CDT us Gildardo Jung MD LAB BLOOD ORDERABLES Final Re sult [facility] [address] [facility]. [place] [address] [facility] ref [facility] * (ABNORMAL) Lipid panel (10/27/2023 9:30 AM CDT) Cholesterol 69 30 - 199 mg/dL Comment: Interpretive Data [...] Data was last revised on 2017. Triglycerides 78 <=149 mg/dL [facility] Comment: Interpretive Data Ages < or = [...] Data was last revised on 2017. HDL 33(L) >=40 mg/dL [facility] Comment: Interpretive Data Ages < or = [...] was last revised on 2017. LDL, calculated 19 <=129 mg/dL [facility] Comment: Interpretive Data Ages < or = [...] was last revised on 2023. Non-HDL Cholesterol 36 mg/dL [facility] Comment: Interpretive Data Ages < or = [...] was last revised on 2017. Chol/HDL ratio 2 [facility] Blood 10/27/2023 9:30 AM CDT 10/27/2023 10:02 AM CDT Gildardo Jung MD LAB BLOOD ORDERABLES Edited R esult - Final Performing Organization Address [facility] Co de Phone Number GO [facility] [address] [address] [facility] [employer] [place], [place] [id number] * Hepatitis C antibody Blood (10/27/2023 9:30 [...] last revised on 2019. Testing performed by: [facility], [address] [place] [address]., [id number] Blood 10/27/2023 9:30 AM CDT 10/27/2023 12:43 PM CDT Result [facility] Gildardo Jung MD LAB MICROBIOLOGY - GENERAL OR DERABLES Edited Result - Final Performing Organization Address [facility] de Phone Number GO [facility] [address] [facility] [employer] [place], [place] [id number] * Hepatitis B Surface Antigen Blood (10/27/2023 9:30 AM CDT) HepBsAg Nonreactive Nonreactive Comment:Testing performed by : [facility], [address] [place] [address]., [id number] Blood 10/27/2023 9:30 AM CDT 10/27/2023 12:43 PM CDT Gildardo Jung MD LAB MICROBIOLOGY - GENERAL OR DERABLES Final Result Performing Organization Address [facility] Co de Phone Number GO [facility] [phone] [employer]. [facility] [place] [address] * Hepatitis B surface antibody (immune status) Blood (10/27/2023 9:30 AM CDT) Pathologist [facility] HBsAb (immune status) Nonreactive Comment: This result is consistent with a lack of immunity to Hepatitis B Virus when used in the setting of routine screening. Current interpretative data was last revised on 21 Testing performed by: [facility], [address] [place] [address]., [id number] Blood 10/27/2023 9:30 AM CDT 10/27/2023 11:36 AM CDT Gildardo Jung MD LAB MICROBIOLOGY - GENERAL OR DERABLES Final Result Performing Organization Address [facility] de Phone Number [facility] [address] [employer]. [place] [place] [address] * Hepatitis B core antibody, total Blood (10/27/2023 9:30 AM CDT) Pathologist [facility] Hep B core IgG/IgM Nonreactive Nonreactive Comment:Testing performed by : [facility], [address] [place] [address]., [address] Blood 10/27/2023 9:30 AM CDT 10/27/2023 11:36 AM CDT Gildardo Jung MD LAB MICROBIOLOGY - GENERAL OR DERABLES Final Result Performing Organization Address [facility] de Phone Number [facility] [address] [employer]. [facility] [place] [address] * (ABNORMAL) Folate (10/27/2023 9:30 AM CDT) Pathologist [facility] Folic acid 2.5(L) >=5.0 ng/mL Comment:Testing performed by : [facility], [address] [facility], [place]., [address] Blood 10/27/2023 9:30 AM CDT 10/27/2023 12:40 PM CDT Gildardo Jung MD LAB BLOOD ORDERABLES Final Re sult Performing Organization Address City/[facility]/ZIP Co de Phone Number [facility] [address] [address] [employer]. [place] [address] * (ABNORMAL) Erythrocyte sedimentation rate (10/27/2023 9:30 AM CDT) Erythrocyte sedimentation rate 98(H) 1 - 30 mm/hr Blood 10/27/2023 9:30 AM CDT 10/27/2023 10:02 AM CDT Gildardo Jung MD LAB BLOOD ORDERABLES Final Re sult Performing Organization Address [facility] Co de Phone Number GO [facility] [phone] [employer]. [place] [address] * (ABNORMAL) Alex-Mercado virus (EBV) antibody panel Blood (10/27/2023 9:30 AM CDT) Pathologist [facility] EBV nuclear Ab Positive(A) Negative Comment: Indicates the presence of detectable IgG antibody to EBV Nuclear Antigen. Testing performed by: [facility], [address] [place] [address]., [address] EBV VCA IgG Positive(A) Negative [facility] Comment: Indicates the presence of antibody; 90% of the adult population will have been infected with EBV sometime in the past. Testing performed by: [facility], [address] [place] [address]., [address] EBV VCA IgM Negative Negative [facility] Comment: No detectable IgM antibody to EBV-VCA. ??A negative result indicates no current infection with EBV. If clinical suspicion of acute EBV infection is present, testing should be repeated after one week. Testing performed by: [facility], [address] [facility], [place]., [address] EBV interp Past Infection GO [facility] Comment:Testing performed by : [facility], [address] [place]., [address] Blood 10/27/2023 9:30 AM CDT 10/27/2023 11:36 AM CDT Gildardo Jung MD LAB MICROBIOLOGY - GENERAL OR DERABLES Final Result Performing Organization Address [facility] Co de Phone Number [facility] [address] [facility] [place] [address] * (ABNORMAL) CRP (acute phase) (10/27/2023 9:30 AM CDT) Pathologist [facility] CRP 108.4(H) <=10.0 mg/L Blood 10/27/2023 9:30 AM CDT 10/27/2023 10:02 AM CDT Gildardo Jung MD LAB BLOOD ORDERABLES Edited R esult - Final Performing Organization Address [facility] de Phone Number GO [facility] [address] [facility] [facility] [employer] [place], [place] [id number] * (ABNORMAL) Comprehensive metabolic panel (10/27/2023 9:30 AM CDT) Sodium 132(L) 135 - 145 mmol/L Potassium, pl 3.5 3.3 - 4.9 mmol/L [facility] Chloride 95(L) 97 - 110 mmol/L [facility] CO2 22 22 - 32 mmol/L [facility] Anion gap 15 2 - 15 mmol/L [facility] BUN 13 6 - 25 mg/dL [facility] Creatinine 0.70 0.60 - 1.10 mg/dL [facility] Glucose 139 70 - 199 mg/dL [facility]ER [facility] Comment: Interpretive Data Fasting glucose [...] 2022. Calcium 8.4(L) 8.5 - 10.3 mg/dL [facility] Bilirubin, total 0.3 0.1 - 1.2 mg/dL [facility] Protein, pl 7.4 6.5 - 8.5 g/dL [facility] Albumin 3.3(L) 3.5 - 5.0 g/dL [facility] Alk phos 86 40 - 130 Units/L [facility] ALT 6(L) 7 - 45 Units/L [facility] AST 15 10 - 45 Units/L [facility] Blood 10/27/2023 9:30 AM CDT 10/27/2023 10:02 AM CDT Gildardo Jung MD LAB BLOOD ORDERABLES Edited R esult - Final GO [facility] [address] [facility]. Department [place] [address] * (ABNORMAL) CBC with auto differential (10/27/2023 9:30 AM CDT) [facility] WBC 12.3(H) 3.8 - 9.9 K/cumm Hgb 7.7(L) 11.9 - 15.5 g/dL [facility] Hct 24.6(L) 35.6 - 45.5 % [facility] Plt 499(H) 150 - 400 K/cumm [facility] MPV 8.7(L) 9.1 - 12.3 fL [facility] RBC 3.05(L) 3.90 - 5.20 M/cumm [facility] MCV 80.7(L) 81.3 - 96.4 fL GO ROBERTWSERVANDO MCH 25.2(L) 27.1 - 33.3 pg GO [facility]ERT[facility] MCHC 31.3(L) 32.3 - 35.7 g/dL GO [facility] RDW CV 19.5(H) 11.1 - 14.9 % GO [facility]ERTCH RDW SD 57.4(H) 35.7 - 48.1 fL [facility] NRBC abs 0.00 0.00 - 0.01 K/cumm [facility] Blood 10/27/2023 9:30 AM CDT 10/27/2023 10:02 AM CDT Gildardo Jung MD LAB BLOOD ORDERABLES Final Re sult GO [facility] [address] [facility]. [place] [address] documented in this encounter Visit Diagnoses Diagnosis High risk medications (not anticoagulants) long-term use- Primary Encounter for long-term (current) use of other medications History of chronic ulcerative colitis documented in this encounter Orders Outpatient Referral Count Last Ordered Date Fir st Ordered Date AMB REFERRAL TO GASTROENTEROLOGY 1 10/27/19 Case Request Count Last Ordered Date First Orde red Date CASE REQUEST GI 1 10/27/2023 documented in this encounter Care Teams Bridge Gang Worker Relationship Specialty Start Date End Date Bethany Arriola MD [address] [place] [address] PCP - General Obstetrics and Gynecology 10/02/2310/18 Bethany Arriola MD [address] [place] [address] Obstetrics and Gynecology 09/15/2310/18 Bigg Delarosa MD [address] [place] [address] Referring Physician Gastroenterology 10/15/23 Jefe Choe MD [address] [facility] [address] [place] [address] Referring Physician Gastroenterology 10/15/23 documented as of this encounter
--- OUTSIDE RECORDS SUMMARY | 2024-02-08 04:09 | XMS_ITS | Encounter Summary ---
Author Organization [facility] Address [address] [place] [address] Phone Care Team Providers Care Assistant Maintenance Manager Name Role Phone Bigg Delarosa MD Unavailable [phone] Jefe Choe MD Unavailable + Melissa Rhodes MD Unavailable [phone] Kaushal Heath MD Primary Care Provider + [phone] Chen Philippe [facility] Unavailable [phone] Encounter Details Date Type Department Care Team (Late st Contact Info) Description 11/10/2023 Orders Only [facility] Gastroenterology [address] [facility] [address]th [place] [address] [place] [phone] Gildardo Jung MD [address] [place], [place] [id number] Social History Tobacco Use Types Packs/Day Years [...] Refills Last Filled Start Date End Date amoxicillin-clavul anate (AUGMENTIN) 875-125 mg per tablet Take 1 tablet (875 mg of amoxicillin total) by mouth 2 (two) times a day for 28 days 56 tablet 11/10/2023 documented in this encounter Plan of Treatment Not on file documented as of this encounter Visit Diagnoses Not on filedocumented in this encounter Discontinued Medications Medication Sig Discontinue Reason Start Date End Da te metroNIDAZOLE (FLAGYL) 500 mg tabletIndications:Abdomi nal/Pelvic Infection Take 1 tablet (500 mg total) by mouth 2 (two) times a day Alternate therapy 11/06/2023 11/10/2023 ciprofloxacin (CIPRO) 500 mg tabletIndications:divert iculitis Take 1 tablet (500 mg total) by mouth 2 (two) times a day Alternate therapy 11/06/2023 11/10/2023 documented as of this encounter Care Teams Assistant Maintenance Manager Relationship Specialty Start Date End Date Kaushal Heath MD [address] [place] [address] PCP - General Internal Medicine 10/30/23 Bigg Delarosa MD [address] [place] [address] Referring Physician Gastroenterology 10/15/23 Jefe Choe MD [address] [place] [address] Referring Physician Gastroenterology 10/15/23 Melissa Rhodes MD [address] [facility] GYNECOLOGIC ONCOLOGY, [address] [address] Consulting Physician Gynecologic Oncology 10/30/23 Chen Philippe LCSW [address] [facility] ([facility]) Mailstop [phone] [place] [address] SHOP Outpatient Technical Cable Jointer 11/07/23 11/13/23 documented as of this encounter
--- OUTSIDE RECORDS SUMMARY | 2024-02-08 04:09 | XMS_ITS | Encounter Summary ---
Author Organization [facility] Healthcare Address [address] [place] [address] Care Team Providers Care Telecommunications Facility Examiner Name Role Phone Bethany Arriola MD Unavailable [phone] Bethany Arriola MD Primary Care Provider Reason for Referral * MRI/CAT/PET Scan (Routine) - Closed Specialty Diagnoses / Procedures Referred By Elizabeth gregory Referred To Contact Radiology Diagnoses Abdominal pain Pelvic mass Procedures CT Abdomen Pelvis W Contrast Melissa Rhodes MD [phone] [place] [address] Phone: tel: fax: [address] [address] Referral ID Status Reason Start Date Expiration Date Visits Re quested Visits Authorized [id number] Closed 10/07/2023 11/05/2024 1 1 Encounter Details Date Type Department Care Team (Late st Contact Info) Description 10/07/2023 Orders Only [facility] Gynecologic On[facility] [place] [address] Michelle Patel RN Abdominal pain (Primary Dx); Pelvic mass Social History Tobacco Use Types Packs/Day [...] on file documented as of this encounter Results * CT Abdomen Pelvis [...] Abdominal pain- Primary Abdominal pain, unspecified site Pelvic mass Abdominal or pelvic swelling, mass or lump, unspecified site Abdominal pain Abdominal pain, unspecified site Pelvic mass Abdominal or pelvic swelling, mass or lump, unspecified site documented in this encounter Care Teams Telecommunications Facility Examiner Relationship Specialty Start Date End Date Bethany Arriola MD [address] [place] [address] PCP - General Obstetrics and Gynecology 10/02/2310/18 Bethany Arriola MD [address] [place] [address] Obstetrics and Gynecology 09/15/2310/18 documented as of this encounter
--- OUTSIDE RECORDS SUMMARY | 2024-02-08 04:09 | XMS_ITS | Encounter Summary ---
Author Organization [facility] Healthcare Address [address] [place] [address] Care Team Providers Care Bulb Grower Name Role Phone Bigg Delarosa MD Unavailable [phone] Jefe Choe MD Unavailable + Melissa Rhodes MD Unavailable [phone] Kaushal Heath MD Primary Care Provider + [phone] Chen Philippe CREDIT ADMINISTRATION MANAGER Unavailable [phone] Reason for Visit * Reason Comments Unsuccessful Phone Call 1 Encounter Details Date Type Department Care Team (Late st Contact Info) Description 11/07/2023 SHOP/CHAP Initial Outreach [facility] OP CASE MANAGEMENT [address] [place] [phone] Chen Philippe, CREDIT ADMINISTRATION MANAGER [address] [facility] ([facility]) Mailstop [phone] [place], [place] [phone] Social History Tobacco Use Types Packs/Day Years [...] on filedocumented in this encounter Care Teams Bulb Grower Relationship Specialty Start Date End Date Kaushal Heath MD [address] [place] [address] PCP - General Internal Medicine 10/30/23 Bigg Delarosa MD [address] [place] [address] Referring Physician Gastroenterology 10/15/23 Jefe Choe MD [address] [place] [address] Referring Physician Gastroenterology 10/15/23 Melissa Rhodes MD [address] [facility] GYNECOLOGIC ONCOLOGY, [address] [address] Consulting Physician Gynecologic Oncology 10/30/23 Chen Philippe, [facility] [address] [facility] ([facility]) Mailstop [phone] [place] [address] SHOP Outpatient Mailroom Associate 11/07/23 11/13/23 documented as of this encounter
--- OUTSIDE RECORDS SUMMARY | 2024-02-08 04:09 | XMS_ITS | Encounter Summary ---
Author Organization [facility] Address [address] [place] [address] Phone Care Team Providers Care Pressure Tank Operator Name Role Phone Bethany Arriola MD Unavailable [phone] Bethany Arriola MD Primary Care Provider Bigg Delarosa MD Unavailable [phone] Jefe Choe MD Unavailable + Melissa Rhodes MD Unavailable [phone] Kaushal Heath MD Primary Care Provider + [phone] Encounter Details Date Type Department Care Team (Late st Contact Info) Description 10/15/2023 Telephone [facility] Gastroenterology [facility] 12th [place] [address] [place] [address] Kary Ryan RN Social History Tobacco Use Types Packs/Day [...] encounter Miscellaneous Notes * Telephone Encounter - Kary Ryan RN - 10/15/2023 10:38 AM CDT Reviewed D/C note, pt has a Hx of UC. Pt was noted to be seeing Dr Miller in [facility]. ----- Message ----- From: Michelle Patel RN Sent: 10/13/2023 4:28 PM CDT To: [facility] Clinical Pool Subject: follow up Hi just following up, this pt was admitted on 10/01 and seen by the GI team and was supposed to be scheduled for follow up with GI outpatient. She reached out to our office today regarding her appt asshe has not been contacted for scheduling as of yet. Thanks for your help with this. Thanks Fransisca Pt scheduled with Dr Jung documented in this encounter Plan of Treatment Not on file documented as of this encounter Visit Diagnoses Not on filedocumented in this encounter Care Teams Pressure Tank Operator Relationship Specialty Start Date End Date Bethany Arriola MD [address] [place] [address] PCP - General Obstetrics and Gynecology 10/02/23 10/29/23 Kaushal Heath MD [address] [place] [address] PCP - General Internal Medicine 10/30/23 Bethany Arriola MD [address] [place] [address] Obstetrics and Gynecology 09/15/23 10/29/23 Bigg Delarosa MD [address] [place] [address] Referring Physician Gastroenterology 10/15/23 Jefe Choe MD [address] [place] [address] Referring Physician Gastroenterology 10/15/23 Melissa Rhodes MD [address] [facility], [address] [address] Consulting Physician Gynecologic Oncology 10/30/23 documented as of this encounter
--- OUTSIDE RECORDS SUMMARY | 2024-02-08 04:09 | XMS_ITS | Encounter Summary ---
Author Organization [facility] Address [address] [place] [address] Phone Care Team Providers Care Transition Teacher Name Role Phone Bigg Delarosa MD Unavailable [phone] Jefe Choe MD Unavailable + Melissa Rhodes MD Unavailable [phone] Kaushal Heath MD Primary Care Provider + [phone] Encounter Details Date Type Department Care Team (Latest Contact Info) Description 11/14/2023 Orders Only [facility] Michelle Patel RN Social History Tobacco Use [...] Date/Time Associated Diagnosis Comments SCAN - LABS 11/14/2023 documented in this encounter Results * SCAN - LABS (11/14/2023) Michelle Patel RN Final Re sult documented in this encounter Visit Diagnoses Not on filedocumented in this encounter Care Teams Transition Teacher Relationship Specialty Start Date End Date Kaushal Heath MD [address] [place] [address] PCP - General Internal Medicine 10/30/23 Bigg Delarosa MD [address] [place] [address] Referring Physician Gastroenterology 10/15/23 Jefe Choe MD [address] [place] [address] Referring Physician Gastroenterology 10/15/23 Melissa Rhodes MD [address] [facility], [address] [address] Consulting Physician Gynecologic Oncology 10/30/23 documented as of this encounter
--- OUTSIDE RECORDS SUMMARY | 2024-02-08 04:09 | XMS_ITS | Encounter Summary ---
Author Organization [facility] Healthcare Address [address] [place] [address] Care Team Providers Care Traffic Administrator Name Role Phone Bigg Delarosa MD Unavailable [phone] Jefe Choe MD Unavailable + Melissa Rhodes MD Unavailable [phone] Kaushal Heath MD Primary Care Provider + [phone] Reason for Visit * Reason Onset Date Comments GI PROCEDURE 7 DAY PRE CALL 11/06/2023 Encounter Details Date Type Department Care Team (Late st Contact Info) Description 11/06/2023 Telephone [facility] Specialty Services [address] [place] [phone] Stefany Askew RN GI PROCEDURE 7 DAY PRE CALL Social History Tobacco Use Types Packs/Day Years [...] encounter Miscellaneous Notes * Telephone Encounter - Stefany Askew RN - 11/06/2023 10:43 AM CDT Epic message sent to Che Gamble, Katie Otero, [facility] Hi Reviewing chart to provide a 7 day call for her colonoscopy on 11/13/[address] Jung at [facility]. Looks like she is currently admitted to [facility] since 11/03 for expressive aphrasia. Please review [...] your care team. Stefany BLANK Nurse Navigator [facility] GI documented in this encounter Plan of Treatment Not on file documented as of this encounter Visit Diagnoses Not on filedocumented in this encounter Care Teams Traffic Administrator Relationship Specialty Start Date End Date Kaushal Heath MD [address] [place] [address] PCP - General Internal Medicine 10/30/23 Bigg Delarosa MD [address] [place] [address] Referring Physician Gastroenterology 10/15/23 Jefe Choe MD [address] [place] [address] Referring Physician Gastroenterology 10/15/23 Melissa Rhodes MD [address] [facility] OBGYN GYNECOLOGIC ONCOLOGY, [address] [address] Consulting Physician Gynecologic Oncology 10/30/23 documented as of this encounter
--- OUTSIDE RECORDS SUMMARY | 2024-02-08 04:09 | XMS_ITS | Encounter Summary ---
Author Organization [facility] Healthcare Address [address] [place] [address] Care Team Providers Care Filling Technician Name Role Phone Bethany Arriola MD Unavailable Bethany Arriola MD Primary Care Provider Bigg Delarosa MD Unavailable [phone] Jefe Choe MD Unavailable + Encounter Details Date Type Department Care Team (Late st Contact Info) Description 10/27/2023 9:10 AM CDT Lab [facility] [id number] [place] [id number] History of chronic ulcerative colitis; High risk medications (not anticoagulants) long-term use Social History Tobacco Use Types Packs/Day Years [...] Procedure Name Priority Date/Time Associated Diagnosis Comments T-SPOT.TB Routine 10/27/2023 9:30 AM CDT History of chronic ulcerative colitis High risk medications (not anticoagulants) long-term use EGFR Routine 10/27/2023 9:30 AM CDT History of chronic ulcerative colitis High risk medications (not anticoagulants) long-term use DIFFERENTIAL AUTO Routine 10/27/2023 9:3 0 AM CDT History of chronic ulcerative colitis High risk medications (not anticoagulants) long-term use TPMT ACTIVITY Routine 10/27/2023 9:30 AM CDT History of chronic ulcerative colitis High risk medications (not anticoagulants) long-term use CBC WITH AUTO DIFFERENTIAL Routine 10/27/2023 9:30 AM CDT History of chronic ulcerative colitis High risk medications (not anticoagulants) long-term use HEPATITIS C ANTIBODY Routine 10/27/2023 9:30 AM CDT History of chronic ulcerative colitis High risk medications (not anticoagulants) long-term use MOHSEN-MERCADO VIRUS VCA ANTIBODY PANEL Routine 10/27/2023 9:30 AM CDT History of chronic ulcerative colitis High risk medications (not anticoagulants) long-term use HEPATITIS B CORE ANTIBODY, TOTAL Routine 10/27/2023 9:30 AM CDT History of chronic ulcerative colitis High risk medications (not anticoagulants) long-term use VITAMIN D 25 HYDROXY Routine 10/27/2023 9:30 AM CDT History of chronic ulcerative colitis High risk medications (not anticoagulants) long-term use HEPATITIS B SURFACE ANTIBODY (IMMUNE STATUS) Routine 10/27/2023 9:30 AM CDT History of chronic ulcerative colitis High risk medications (not anticoagulants) long-term use HEPATITIS B SURFACE ANTIGEN Routine 10/27/2023 9:30 AM CDT History of chronic ulcerative colitis High risk medications (not anticoagulants) long-term use ERYTHROCYTE SEDIMENTATION RATE Routine 10/27/2023 9:30 AM CDT History of chronic ulcerative colitis High risk medications (not anticoagulants) long-term use VARICELLA ZOSTER ANTIBODY, IGG Routine 10/27/2023 9:30 AM CDT History of chronic ulcerative colitis High risk medications (not anticoagulants) long-term use CRP (ACUTE PHASE) Routine 10/27/2023 9:3 0 AM CDT History of chronic ulcerative colitis High risk medications (not anticoagulants) long-term use FOLATE Routine 10/27/2023 9:30 AM CDT History of chronic ulcerative colitis High risk medications (not anticoagulants) long-term use VITAMIN B12 Routine 10/27/2023 9:30 AM CDT History of chronic ulcerative colitis High risk medications (not anticoagulants) long-term use LIPID PANEL Routine 10/27/2023 9:30 AM CDT History of chronic ulcerative colitis High risk medications (not anticoagulants) long-term use COMPREHENSIVE METABOLIC PANEL Routine 10/27/2023 9:30 AM CDT History of chronic ulcerative colitis High risk medications (not anticoagulants) long-term use documented in this encounter Results * eGFR (10/27/2023 9:30 AM CDT) [facility] eGFR >90 >=60 mL/min/1. 73 m2 [...] interpretive data was last reviewed 2020. Blood 10/27/2023 9:30 AM CDT 10/27/2023 10:02 AM CDT us Gildardo Jung MD LAB BLOOD ORDERABLES Final Re sult [facility] [address] [facility]. Department [place] [address] * (ABNORMAL) Differential, auto (10/27/2023 9:30 AM CDT) Neutrophil abs 9.7(H) 1.5 - 6.5 K/cumm Imm gran abs 0.1 0.0 - 0.1 K/cumm [facility] Lymphocyte abs 1.5 0.8 - 3.3 K/cumm [facility] Monocyte abs 1.0(H) 0.2 - 0.8 K/cumm [facility] Eosinophil abs 0.0 0.0 - 0.5 K/cumm [facility] Basophil abs 0.0 0.0 - 0.1 K/cumm [facility] Neutrophil pct 78.3 % [facility] Comment: Interpretive Data Percent cell count reference ranges are not reported, since discordance with absolute values may lead to misinterpretation of CBC data. Current Interpretive Data was last revised on 2017. Imm gran pct 0.8 % [facility] Comment: Interpretive Data Percent cell count reference ranges are not reported, since discordance with absolute values may lead to misinterpretation of CBC data. Current Interpretive Data was last revised on 2017. Lymphocyte pct 12.4 % [facility] Comment: Interpretive Data Percent cell count reference ranges are not reported, since discordance with absolute values may lead to misinterpretation of CBC data. Current Interpretive Data was last revised on 2017. Monocyte pct 7.9 % [facility] Comment: Interpretive Data Percent cell count reference ranges are not reported, since discordance with absolute values may lead to misinterpretation of CBC data. Current Interpretive Data was last revised on 2017. Eosinophil pct 0.3 % [facility] Comment: Interpretive Data Percent cell count reference ranges are not reported, since discordance with absolute values may lead to misinterpretation of CBC data. Current Interpretive Data was last revised on 2017. Basophil pct 0.3 % [facility] Comment: Interpretive Data Percent cell count reference ranges are not reported, since discordance with absolute values may lead to misinterpretation of CBC data. Current Interpretive Data was last revised on 2017. Blood 10/27/2023 9:30 AM CDT 10/27/2023 10:02 AM CDT Gildardo Jung MD LAB BLOOD ORDERABLES Final Re sult [facility] [address] [facility]. Department [place] [address] * (ABNORMAL) CBC with auto differential (10/27/2023 9:30 AM CDT) WBC 12.3(H) 3.8 - 9.9 K/cumm Hgb 7.7(L) 11.9 - 15.5 g/dL [facility] Hct 24.6(L) 35.6 - 45.5 % GO W Plt 499(H) 150 - 400 K/cumm [facility] MPV 8.7(L) 9.1 - 12.3 fL [facility] W RBC 3.05(L) 3.90 - 5.20 M/cumm [facility] MCV 80.7(L) 81.3 - 96.4 fL [facility] MCH 25.2(L) 27.1 - 33.3 pg [facility] MCHC 31.3(L) 32.3 - 35.7 g/dL [facility] RDW CV 19.5(H) 11.1 - 14.9 % [facility] RDW SD 57.4(H) 35.7 - 48.1 fL [facility] NRBC abs 0.00 0.00 - 0.01 K/cumm [facility] Blood 10/27/2023 9:30 AM CDT 10/27/2023 10:02 AM CDT Gildardo Jung MD LAB BLOOD ORDERABLES Final Re sult [facility] [address] [facility] Department [place] [address] * (ABNORMAL) Comprehensive metabolic panel (10/27/2023 9:30 AM CDT) Sodium 132(L) 135 - 145 mmol/L Potassium, pl 3.5 3.3 - 4.9 mmol/L [facility] Chloride 95(L) 97 - 110 mmol/L [facility] CO2 22 22 - 32 mmol/L [facility] Anion gap 15 2 - 15 mmol/L [facility] BUN 13 6 - 25 mg/dL [facility] Creatinine 0.70 0.60 - 1.10 mg/dL [facility] Glucose 139 70 - 199 mg/dL [facility] Comment: Interpretive Data Fasting glucose >/= 126 [...] Gildardo Jung MD LAB BLOOD ORDERABLES Edited [facility] Performing Organization Address [facility] Co de Phone Number [facility] [address] [address] [employer] [place], [place] [id number] * (ABNORMAL) CRP (acute phase) (10/27/2023 9:30 AM CDT) Pathologist [facility] CRP 108.4(H) <=10.0 mg/L Blood 10/27/2023 9:30 AM CDT 10/27/2023 10:02 AM CDT Gildardo Jung MD LAB BLOOD ORDERABLES Edited [employer] Performing Organization Address [facility] Co de Phone Number [facility] [address] [address] [employer] [place], [place] [phone] * (ABNORMAL) Mohsen-Mercado virus (EBV) antibody panel Blood (10/27/2023 9:30 AM CDT) Pathologist [facility] EBV nuclear Ab Positive(A) Negative Comment: Indicates the presence of detectable IgG antibody to EBV Nuclear Antigen. Testing performed by: [facility], [address] [place]., [address] EBV VCA IgG Positive(A) Negative [facility] Comment: Indicates the presence of antibody; 90% of the adult population will have been infected with EBV sometime in the past. Testing performed by: [facility], [address] [place]., [address] EBV VCA IgM Negative Negative [facility] Comment: No detectable IgM antibody to EBV-VCA. ??A negative result indicates no current infection with EBV. If clinical suspicion of acute EBV infection is present, testing should be repeated after one week. Testing performed by: [facility], [address] [place]., [address] EBV interp Past Infection GO [facility] Comment:Testing performed by : [facility], [address] [place]., [address] Blood 10/27/2023 9:30 AM CDT 10/27/2023 11:36 AM CDT Gildardo Jung MD LAB MICROBIOLOGY - GENERAL OR DERABLES Final Result Performing Organization Address City/[facility] Co de Phone Number [facility] [address] [address] [place] [address] * (ABNORMAL) Erythrocyte sedimentation rate (10/27/2023 9:30 AM CDT) Pathologist [facility] Erythrocyte sedimentation rate 98(H) 1 - 30 mm/hr Blood 10/27/2023 9:30 AM CDT 10/27/2023 10:02 AM CDT Gildardo Jung MD LAB BLOOD ORDERABLES Final Re sult Performing Organization Address [facility]/ZIP Co de Phone Number [facility] [address] [facility] [place] [address] * (ABNORMAL) Folate (10/27/2023 9:30 AM CDT) Pathologist [facility] Folic acid 2.5(L) >=5.0 ng/mL Comment:Testing performed by : [facility], [address] [facility], [place]., [address] Blood 10/27/2023 9:30 AM CDT 10/27/2023 12:40 PM CDT Gildardo Jung MD LAB BLOOD ORDERABLES Final Re sult Performing Organization Address [facility] Co de Phone Number [facility] [address] [facility] [place] [address] * Hepatitis B core antibody, total Blood (10/27/2023 9:30 AM CDT) Pathologist [facility] Hep B core IgG/IgM Nonreactive Nonreactive Comment:Testing performed by : [facility], [address] [place] [address]., [address] Blood 10/27/2023 9:30 AM CDT 10/27/2023 11:36 AM CDT Gildardo Jung MD LAB MICROBIOLOGY - GENERAL OR DERABLES Final Result Performing Organization Address [facility] Co de Phone Number [facility] [address] [facility] [place] [address] * Hepatitis B surface antibody (immune status) Blood (10/27/2023 9:30 AM CDT) Pathologist [facility] HBsAb (immune status) Nonreactive Comment: This result is consistent with a lack of immunity to Hepatitis B Virus when used in the setting of routine screening. Current interpretative data was last revised on 21 Testing performed by: [facility], [address] [place] [address]., [address] Blood 10/27/2023 9:30 AM CDT 10/27/2023 11:36 AM CDT Gildardo Jung MD LAB MICROBIOLOGY - GENERAL OR DERABLES Final Result Performing Organization Address [facility] Co de Phone Number [facility] [address] [address] [employer] [facility] [employer] [place], [place] [phone] * Hepatitis B Surface Antigen Blood (10/27/2023 9:30 AM CDT) HepBsAg Nonreactive Nonreactive Comment:Testing performed by : [facility], [address] [place] [address]., [address] Blood 10/27/2023 9:30 AM CDT 10/27/2023 12:43 PM CDT Gildardo Jung MD LAB MICROBIOLOGY - GENERAL OR DERABLES Final Result Performing Organization Address [facility] Co de Phone Number [facility] [address] [address] [employer]. Department [employer] [place], [place] [phone] * Hepatitis C antibody Blood (10/27/2023 9:30 [...] last revised on 2019. Testing performed by: [facility], [address] [place] [address]., [address] Blood 10/27/2023 9:30 AM CDT 10/27/2023 12:43 PM CDT Gildardo Jung MD LAB MICROBIOLOGY - GENERAL OR DERABLES Edited Result - Final Performing Organization Address [facility] Co de Phone Number [facility] [address] [address] [employer] Department [employer] [place], [place] [phone] * (ABNORMAL) Lipid panel (10/27/2023 9:30 AM CDT) [facility] Cholesterol 69 30 - 199 mg/dL Comment: [...] ORDERABLES Edited R esult - Final [facility] [address] [facility]. Department [place] [address] * TPMT activity profile, RBC (10/27/2023 9:30 AM CDT) [facility] 6-METHYLTHIOGUANINE RIBOSIDE 3.11 2.70 - 5.84 [facility] Lab Interpretation,Comp See Footnote [facility] Comment: *Normal* In this whole blood sample, the profile of activity of thiopurine methyltransferase using three different substrates was normal or essentially normal. ADDITIONAL INFORMATION Liquid Chromatography-Tandem Mass Spectrometry (LC-MS/MS) This test was developed and its performance characteristics determined by [facility] in a manner consistent with CLIA requirements. This test has not been cleared or approved by the U.S. Food and Drug Administration. Reviewed by See Footnote [facility] Comment: RESULT: Arslan Aguirre M.D., Ph.D. Test Performed by: [address] [address] [employer]: Rach Guillermo Ph.D.; CLIA# [id number] Blood 10/27/2023 9:30 AM CDT 10/27/2023 10:02 AM CDT Gildardo Jung MD LAB BLOOD ORDERABLES Final Re sult Performing Organization Address City/[facility]/ZIP Co de Phone Number [facility] [address] [address] Department [place] [address] [place] ref [facility] * T-SPOT.TB Blood (10/27/2023 9:30 AM CDT) [facility] T-SPOT.TB Negative SeeBelow Comment: Normal Value: Negative [...] Passed [facility] Comment: Test Performed at: [employer] [facility] [address] [place] [address] ??[id number] ? BHANU RAE,PHD Blood 10/27/2023 9:30 AM CDT 10/27/2023 6:06 PM CDT Gildardo Jung MD LAB MICROBIOLOGY - GENERAL OR DERABLES Final Result Performing Organization Address City/[facility]/ZIP Co de Phone Number [facility] [address] Department [place] [address] * Varicella Zoster IgG antibody Blood (10/27/2023 9:30 AM CDT) VZV IgG Reactive Reactive Comment: Reactive: Results suggest response to immunization or prior exposure to the virus. Testing performed by: [facility], [address] [place]., [address] Blood 10/27/2023 9:30 AM CDT 10/27/2023 11:36 AM CDT Gildardo Jung MD LAB MICROBIOLOGY - GENERAL OR DERABLES Final Result Performing Organization Address City[facility]/ZIP Co de Phone Number [facility] [address] [facility] [place] [address] * (ABNORMAL) Vitamin B12 (10/27/2023 9:30 AM CDT) Pathologist [facility] Vitamin B12 176(L) 230 - 1,250 pg/mL Comment:Testing performed by : [facility], [facility] [facility], [place]., [address] Blood 10/27/2023 9:30 AM CDT 10/27/2023 12:40 PM CDT Gildardo Jung MD LAB BLOOD ORDERABLES Final Re sult Performing Organization Address City/[facility]/ZIP Co de Phone Number [facility] [address] [facility] [employer] [place] [address] * (ABNORMAL) Vitamin D 25 hydroxy (10/27/2023 9:30 AM CDT) Pathologist [facility] Vitamin D 25-OH 19(L) 30 - 80 ng/mL Blood 10/27/2023 9:30 AM CDT 10/27/2023 10:02 AM CDT Gildardo Jung MD LAB BLOOD ORDERABLES Edited R esult - Final [facility] [address] [facility] [place] [address] documented in this encounter Visit Diagnoses Diagnosis History of chronic ulcerative colitis High risk medications (not anticoagulants) long-term use Encounter for long-term (current) use of other medications documented in this encounter Care Teams Filling Technician Relationship Specialty Start Date End Date Bethany Arriola MD [address] [place] [address] PCP - General Obstetrics and Gynecology 10/02/2310/18 Bethany Arriola MD [address] [place] [address] Obstetrics and Gynecology 09/15/2310/18 Bigg Delarosa MD [address] [place] [address] Referring Physician Gastroenterology 10/15/23 Jefe Choe MD [address] [place] [address] Referring Physician Gastroenterology 10/15/23 documented as of this encounter
--- OUTSIDE RECORDS SUMMARY | 2024-02-08 04:09 | XMS_ITS | Encounter Summary ---
Author Organization [facility] Healthcare Address [address] [place] [address] Care Team Providers Care Black Top Paver Operator Name Role Phone Bigg Delarosa MD Unavailable [phone] Jefe Choe MD Unavailable + Melissa Rhodes MD Unavailable [phone] Kaushal Heath MD Primary Care Provider + [phone] Chen Philippe [facility] Unavailable [phone] Reason for Visit * Auth/Cert (Routine) Specialty Diagnoses / Procedures Referred By Elizabeth tyler Referred To Contact Diagnoses History of chronic ulcerative colitis History of chronic ulcerative colitis [Z87.19] Procedures MT COLONOSCOPY FLX DX W/COLLJ SPEC WHEN PFRMD COLONOSCOPY Referral ID Status Reason Start Date Expiration Date Visits Re quested Visits Authorized [id number] 1 1 Encounter Details Date Type Department Care Team (Late st Contact Info) Description 11/13/2023 12:30 PM CDT - 11/13/2023 1:15 PM CDT Surgery [facility] [address] [facility] [address] [place] [address] Gildardo Jung MD [address] [facility] [address] [place], [place] [id number] COLON BIOPSY Surgery Details Date/Time Status Location OR Service Patient Class Case Class Case Type Trauma Case? 11/13/2023 12:30 PM Posted [facility] ENDOSCOPY GI 03 Gastroenterology Outpatient Elective Panel 1 Procedure LRB Anes Op Region Wound Class Comments COLON BIOPSY N/A Monitor Anesthesia Care N/A Surgeon Surgeon Role Service Panel Gildardo Jung MD Primary Gastroenterology 1 documented in this encounter Social History Tobacco [...] Sign Reading Time Taken Comments Blood Pressure 130/72 11/13/2023 1:06 PM CDT Pulse 92 11/13/2023 1:06 PM CDT Temperature 36.3 ??C (97.3 ??F) 11/13/2023 12:56 PM C DT Respiratory Rate 30 11/13/2023 1:06 PM CDT Oxygen Saturation 95% 11/13/2023 1:06 PM CDT Inhaled Oxygen Concentration - - Weight 63 kg (139 lb) 11/13/2023 11:54 AM CDT Height 154.9 cm (5' 1 ) 11/13/2023 11:54 AM CDT Body Mass Index 26.26 11/13/2023 11:54 AM CDT documented in this encounter Medications at Time [...] mouth 2 (two) times a day 12/30/19 ergocalciferol (VITAMIN D) 50,000 unit capsule 10/30/2023 11/26/19 ferrous sulfate 325 mg (65 mg of [...] triamcinolone (KENALOG) 0.1 % paste 08/01/2023 11/26/19 documented as of this encounter Discharge Disposition Disposition Code Departure Means Destination Comment s Discharge to home or self care documented in this encounter Progress Notes * Cristina Spicer MD - 11/05/2023 10:36 AM CDT Interventional Radiology Consult Resolution Note Reason for Consult: Farhana Russo is a 63 y.o. patient with HTN, DM, recurrent diverticulitis/ Found down on the floor in the middle of the night and brought her to the ED d/t expressive aphasia. CT head was negative. CT A/P revealed perforated diverticulitis of descending/sigmoid colon w/ contained perforation and c/f multiple hepatic and splenic abscesses. IR consulted for placement of drain Assessment and Plan: Splenic and hepatic abscess are too small to drain. Recommend consulting abdominal radiology for image guided aspiration if sampling to guide treatment is desired. As discussed with Arlet Doll NP on November 05, 2023, the prior consult request has been closed and the order cancelled in [facility]. Thank you for the opportunity to participate in this patient's care. If the clinical situation changes, a new consult request will be needed. This consult request was discussed with Dr. Celaya, the IR Attending. documented in this encounter H&P Notes * Gildardo Jung MD - 11/13/2023 1:05 PM CDT I have reviewed the H&P, examined the patient, and endorse the findings as written. Plan of Care : Based on the above findings, I consider Farhana Russo to be an acceptable risk for: Procedure(s): COLON BIOPSY Source Note - Ciro Seay MD - 11/13/2023 11:47 [...] (KENALOG) 0.1 % paste -- 08/01/23 -- Grabiel Logan MD No current facility-administered medications for this encounter. [...] Medication protocol when under care of a ROD BUSTER HELPER Planned anesthesia: MAC Induction: Induction: intravenous. Postoperative Plan: Postoperative administration opioids intended. No postoperative mechanical ventilation intended. Patient's planned disposition post procedure is Outpatient. No trial extubation planned. Informed Consent: Discussed plan with ROD BUSTER HELPER. Anesthesia plan and risks discussed with patient. Consent and Attending signature: I and/or my designee have discussed the anesthesia plan, benefits, possible alternatives, parental presence at time of induction (if indicated), and clinically relevant risks that may include dental injury, unintentional awareness, and/or other complications. The patient and/or parent/legal guardian understand, and agree to proceed. All questions answered. * Gildardo Jung MD - 11/13/2023 12:08 PM CDT I have reviewed the H&P, examined the patient, and endorse the findings as written. Plan of Care : Based on the above findings, I consider Farhana Russo to be an acceptable risk for: Procedure(s): COLONOSCOPY Source Note - Ciro Seay MD - 11/13/2023 11:47 [...] Medication protocol when under care of a ROD BUSTER HELPER Planned anesthesia: MAC Induction: Induction: intravenous. Postoperative Plan: Postoperative administration opioids intended. No postoperative mechanical ventilation intended. Patient's planned disposition post procedure is Outpatient. No trial extubation planned. Informed Consent: Discussed plan with ROD BUSTER HELPER. Anesthesia plan and risks discussed with patient. Consent and Attending signature: I and/or my designee have discussed the anesthesia plan, benefits, possible alternatives, parental presence at time of induction (if indicated), and clinically relevant risks that may include dental injury, unintentional awareness, and/or other complications. The patient and/or parent/legal guardian understand, and agree to proceed. All questions answered. documented in this encounter Procedure Notes * Gildardo Jung MD - 11/13/2023 12:20 PM CDTAssociated Order(s): COLONOSCOPY GI ENDOSCOPY [facility] Patient Name: Farhana Russo Procedure Date: 11/13/2023 12:20 PM Date of : 1960 Admit Type: Outpatient Age: 63 Gender: Female Attending MD: Gildardo Jung M.D. Room: [facility] ENDOSCOPY ROOM 3 Note Status: Finalized Procedure: Colonoscopy Indications: Suspected Crohn's disease of the colon Referring MD: Bethany Arriola M.D. Providers: Gildardo Jung M.D., Mimi Oneal M.D. Medicines: Monitored Anesthesia Care Complications: No immediate complications. Estimated blood loss: Minimal. Estimated Blood Loss: Estimated blood loss was minimal. Procedure: Pre-Anesthesia Assessment: - Immediately prior to administration of medications, the patient was re-assessed for adequacy to receive sedatives. - The risks and benefits of the procedure and the sedation options and risks were discussed with the patient. All questions were answered and informed consent was obtained. The benefits, risks and alternatives of the procedure and sedation were discussed and informed consent was obtained. All questions were answered. Please refer to the signed informed consent document in the medical record. The scope was passed under direct vision. The [facility] [id number] endoscope was introduced through the anus with the intention of advancing to the cecum. The scope was advanced to the splenic flexure before the procedure was aborted. Medications were given. The colonoscopy was extremely difficult due to unsatisfactory bowel prep. The bowel preparation used was Miralax via single dose instruction. The quality of the bowel preparation was poor. Bowel prep was administered using a single dose. Findings: The perianal and digital rectal examinations were normal. Normal mucosa was found in the descending colon. Biopsies were taken with a cold forceps for histology. Diffuse severe inflammation characterized by congestion (edema), granularity, loss of vascularity, pseudopolyps and scarring was found in the sigmoid colon (starts at 40 cm, [...] 0 Note Initiated On: 11/13/2023 12:20 PM documented in this encounter Plan of Treatment Not on file documented as of this encounter Procedures Procedure Name Priority Date/Time Associated Diagnosis Comments SURGICAL PATHOLOGY Routine 11/13/2023 12 :42 PM CDT History of chronic ulcerative colitis COLONOSCOPY 11/13/2023 12:20 PM CDT COLON BIOPSY 11/13/2023 12:13 PM CDT History of chronic ulcerative colitis POCT GLUCOSE DEVICE Routine 11/13/2023 1 1:59 AM CDT documented in this encounter Results * Surgical pathology (11/13/2023 12:42 PM CDT) Tissue (Colon, Biopsy) 11/13/2023 12:42 PM CDT Tissue (Colon, Biopsy) 11/13/2023 12:50 PM CDT Narrative PATHOLOGY [facility] - 11/14/2023 3:16 PM CDT EPIC results best viewed via link to PDF [facility] [place] [address] Note to Patients: This report may contain [...] Gender: ??F : ??1960 (Age: 63) Address: ??[address] [place] [address] ??[id number] Hospital #: ??[id number] Taken:11/13/2023 Received:11/13/2023 Reported: 11/14/2023 Patient Type: BJ SDS ?? Service: Gastroenterology Location: Physician(s): ??Monserrat Jim M.D. Kristen N. James, M.D. Diagnosis: A. ??Large bowel, descending colon, [...] Surgical Pathology and Flow Cytometry Departments at [facility] as part of an ongoing plant quality manager program and in compliance with federally mandated [...] Surgical Pathology and Flow Cytometry Departments of [facility]. ??It has not been cleared or approved by the U. S. Food and Drug Administration. IMAGES AND SCANNED DOCUMENTS, IF INCLUDED, ONLY VIEWABLE IN PDF VERSION OF REPORT Gildardo Jung MD LAB PATHOLOGY ORDERABLES Samantha lott Result PATHOLOGY [facility] 3rd Floor [place], [place] [phone] * Colonoscopy (11/13/2023 12:20 PM CDT) Anatomical Region Laterality Modality Other Narrative Procedure Note Gildardo Jung MD - 11/13/2023 12:20 PM CDT GI [facility]OSCOPY [facility] Patient Name: Farhana Russo Procedure Date: 11/13/2023 12:20 PM Date of : 1960 Admit Type: Outpatient Age: 63 Gender: Female Attending MD: Gildardo Jung M.D. Room: [facility] ENDOSCOPY ROOM 3 Note Status: Finalized Procedure: [...] The scope was passed under direct vision.The [facility] [id number] endoscope was introducedthrough the anus with [...] 0 Note Initiated On: 11/13/2023 12:20 PM us Gildardo Jung MD ENDOSCOPY PROCEDURES Final Re sult * POCT glucose (11/13/2023 11:59 AM CDT) Glucose, POC 114 70 - 199 mg/dL Blood 11/13/2023 11:5 9 AM CDT 11/13/2023 11:59 AM CDT Gildardo Jung MD LAB POCT ORDERABLES - DEVICE Final Result GO [facility] One [facility] [place] [address] documented in this encounter Visit Diagnoses Diagnosis History of chronic ulcerative colitis- Primary History of chronic ulcerative colitis documented in this encounter Admitting Diagnoses Diagnosis History of chronic ulcerative colitis documented in this encounter Administered Medications Inactive Administered Medications - up to 3 most recent administrations Medication Order MAR Action Action Date Dose Rate Site ondansetron (ZOFRAN) injection 4 mg 4 mg, intravenous, Administer over 2 Minutes, Every 6 hours PRN, nausea, vomiting, Starting on Sabi 11/13/23 at 1200, Pre-Procedure (GI) sodium chloride 0.9% flush 0.5-20 mL 0.5-20 mL, intra-catheter, As needed, line care, Starting on Asbi 11/13/23 at 1200, Pre-Procedure (GI), Flush volume based on line type and size. Flush before and after each use. , Indications: FlushingIndications:Flushing sodium chloride 0.9% infusion 30 mL/hr, intravenous, Continuous, Starting on Sabi 11/13/23 at 1245, Pre-Procedure (GI) New Bag 11/13/2023 12:12 PM CDT New Bag 11/13/2023 12:04 PM CDT 30 mL/hr 30 mL/hr New Bag 11/13/2023 12:03 PM CDT 30 mL/hr 30 mL/hr documented in this encounter Discontinued Medications Medication Sig Discontinue Reason Start Date End Da te amoxicillin-clavulanat e (AUGMENTIN) 875-125 mg per tablet Take 1 tablet (875 mg of amoxicillin total) by mouth 2 (two) times a day for 28 days Therapy completed 11/10/2023 11/13/2023 documented as of this encounter Historical Medications * This list may reflect changes made after this encounter. potassium chloride ER 10 mEq CR tablet Take 1 tablet/capsul e (10 mEq total) by mouth daily 10/30/2023 metroNIDAZOLE (FLAGYL) 500 mg tablet Take 1 tablet (500 mg total) by mouth 2 (two) times a day 12/30/2023 ciprofloxacin (CIPRO) 500 mg tablet Take 1 tablet (500 mg total) by mouth 2 (two) times a day 12/30/2023 ergocalciferol (VITAMIN D) 50,000 unit capsule 10/30/2023 11/26/2023 added in this encounter Active and Recently Administered Medications Times are shown in CDT. Continuous Medication Order 11/11/2023 11/12/2023 11/13/2023 sodium chloride 0.9% infusion 30 mL/hr, intravenous, Continuous, Starting on Sabi 11/13/23 at 1245, Pre-Procedure (GI) 1203 (New Bag - Prov ider: Yuliet Linares RN)1204 (New Bag - Provider: Yuliet Linares RN)1211 (Paused - Provider: Yudy Napoles CRNA - Comment: Switch to gravity)1212 (New Bag - Provider: Yudy Napoles CRNA)1253 (Stopped - Provider: Yudy Napoles CRNA) PRN Medication Order 11/11/2023 11/12/2023 11/13/2023 ondansetron (ZOFRAN) injection 4 mg 4 mg, intravenous, Administer over 2 Minutes, Every 6 hours PRN, nausea, vomiting, Starting on Sabi 11/13/23 at 1200, Pre-Procedure (GI) sodium chloride 0.9% flush 0.5-20 mL 0.5-20 mL, intra-catheter, As needed, line care, Starting on Sabi 11/13/23 at 1200, Pre-Procedure (GI), Flush volume based on line type and size. Flush before and after each use. , Indications: Flushing documented in this encounter Orders Medications Ordered That Justin ht Not Have Been Administered Count Last Ordered Date First Ordered Date ondansetron (ZOFRAN) injection 4 mg 1 11/12 sodium chloride 0.9% flush 0.5-20 mL 1 10/19 Discharge Count Last Ordered Date First Orde red Date DISCHARGE PATIENT 1 11/13/2023 documented in this encounter Care Teams Black Top Paver Operator Relationship Specialty Start Date End Date Kaushal Heath MD [address] [place] [address] PCP - General Internal Medicine 10/30/23 Bigg Delarosa MD [address] [facility] [address] [facility] [address] [place] [address] Referring Physician Gastroenterology 10/15/23 Jefe Choe MD [address] [facility] [address] [place] [address] [place] [address] Referring Physician Gastroenterology 10/15/23 Melissa Rhodes MD [address] [facility] GYNECOLOGIC ONCOLOGY[address] [address] Consulting Physician Gynecologic Oncology 10/30/23 Chen Philippe, [facility] [address] [facility] ([facility]) Mailstop [phone] [place] [address] SHOP Outpatient Wood Router Hand 11/07/23 11/13/23 documented as of this encounter
--- OUTSIDE RECORDS SUMMARY | 2024-02-08 04:09 | XMS_ITS | Encounter Summary ---
Author Organization [facility] Address [address] [place] [address] Phone Care Team Providers Care Manager Hotel Name Role Phone Bigg Delarosa MD Unavailable [phone] Jefe Choe MD Unavailable + Melissa Rhodes MD Unavailable [phone] Kaushal Heath MD Primary Care Provider + [phone] Chen Philippe [facility] Unavailable [phone] Reason for Visit * Reason Onset Date Comments Medication Problem 11/07/2023 Abdominal melchor n w/ Cipro Encounter Details Date Type Department Care Team (Late st Contact Info) Description 11/07/2023 Telephone [facility] Gastroenterology [facility] 12th [place] [address] [place] [address] Hilaria Pratt Medication Problem (Abdominal pain w/ Cipro) Social History Tobacco Use Types Packs/Day Years [...] * Telephone Encounter - Hilaria Pratt - 11/07/2023 12:19 PM CDT Rcv'd call from pt's spouse, Anton, reporting Farhana needs to know what to do with cipro since it it causing R sided abdominal pain when she takes it. Anton states they spoke to Dr. Rhodes's office this morning but they referred her to Dr. Jung since he's treating the condition. He also reports Farhana isn't sleeping at night. She didn't take Cipro this morning and has not had abdominal pain today, butin bed sleeping now. Anton requesting call back as soon as possible. #[phone] or [phone]. documented in this encounter Plan of Treatment Not on file documented as of this encounter Visit Diagnoses Not on filedocumented in this encounter Care Teams Manager Hotel Relationship Specialty Start Date End Date Kaushal Heath MD [address] [place] [address] PCP - General Internal Medicine 10/30/23 Bigg Delarosa MD [address] [place] [address] Referring Physician Gastroenterology 10/15/23 Jefe Choe MD [address] [place] [address] Referring Physician Gastroenterology 10/15/23 Melissa Rhodes MD [address] [facility] GYNECOLOGIC ONCOLOGY, [address] [address] Consulting Physician Gynecologic Oncology 10/30/23 Chen Philippe LCSW [address] [facility] ([facility] Mailstop [phone] [place] [address] SHOP Outpatient Windows Server Specialist 11/07/23 11/13/23 documented as of this encounter
--- OUTSIDE RECORDS SUMMARY | 2024-02-08 04:09 | XMS_ITS | Encounter Summary ---
Author Organization [facility] Healthcare Address [address] [place] [address] Care Team Providers Care Installation Helper Name Role Phone Bigg Delarosa MD Unavailable [phone] Jefe Choe MD Unavailable + Melissa Rhodes MD Unavailable [phone] Kaushal Heath MD Primary Care Provider + [phone] Chen Philippe [facility] Unavailable [phone] Reason for Visit * Auth/Cert (Routine) Specialty Diagnoses / Procedures Referred By Elizabeth tyler Referred To Contact Diagnoses History of chronic ulcerative colitis History of chronic ulcerative colitis [Z87.19] Procedures ID COLONOSCOPY FLX DX W/COLLJ SPEC WHEN PFRMD COLONOSCOPY Referral ID Status Reason Start Date Expiration Date Visits Re quested Visits Authorized [id number] 1 1 Encounter Details Date Type Department Care Team (Latest Contact Info) Description 11/13/2023 11:20 AM CDT - 11/13/2023 2:15 PM CDT Hospital Encounter [facility] [address] [facility] [address] [place] [address] Gildardo Jung MD [address] [place] [address] History of chronic ulcerative colitis Discharge Disposition: [...] Sign Reading Time Taken Comments Blood Pressure 133/76 11/13/2023 1:16 PM CDT Pulse 104 11/13/2023 1:16 PM CDT Temperature 36.3 ??C (97.3 ??F) 11/13/2023 12:56 PM C DT Respiratory Rate 16 11/13/2023 1:16 PM CDT Oxygen Saturation 95% 11/13/2023 1:16 PM CDT Inhaled Oxygen Concentration - - [...] mouth 2 (two) times a day 12/30/19 triamcinolone (KENALOG) 0.1 % paste 08/01/2023 11/26/19 [...] been closed and the order cancelled in [facility]. Thank you for the opportunity to [...] Medication protocol when under care of a HEAD UP OPERATOR HELPER Planned anesthesia: MAC Induction: Induction: intravenous. Postoperative Plan: Postoperative administration opioids intended. No postoperative mechanical ventilation intended. Patient's planned disposition post procedure is Outpatient. No trial extubation planned. Informed Consent: Discussed plan with HEAD UP OPERATOR HELPER. Anesthesia plan and risks discussed with [...] Medication protocol when under care of a HEAD UP OPERATOR HELPER Planned anesthesia: MAC Induction: Induction: intravenous. Postoperative Plan: Postoperative administration opioids intended. No postoperative mechanical ventilation intended. Patient's planned disposition post procedure is Outpatient. No trial extubation planned. Informed Consent: Discussed plan with HEAD UP OPERATOR HELPER. Anesthesia plan and risks discussed with [...] Female Attending MD: Gildardo Jung M.D. Room: [facility] ENDOSCOPY ROOM 3 Note Status: [...] scope was passed under direct vision. The [facility] [id number] endoscope was introduced through the anus [...] Biopsy) 11/13/2023 12:50 PM CDT Narrative PATHOLOGY [facility] - 11/14/2023 3:16 PM CDT EPIC results best viewed via link to PDF [facility]en [facility] Laboratory of Surgical Pathology [place] [address] Note to Patients: This report may contain [...] Gender: ??F : ??1960 (Age: 63) Address: ??[address] [place] [id number] Hospital #: ??[id number] Taken:11/13/2023 Received:11/13/2023 Reported: 11/14/2023 Patient Type: [facility] [...] Surgical Pathology and Flow Cytometry Departments at [facility] as part of an ongoing quality analyst/technical writer program and in compliance with federally mandated [...] Surgical Pathology and Flow Cytometry Departments of [facility]. ??It has not been cleared or approved by the U. S. Food and Drug Administration. IMAGES AND SCANNED DOCUMENTS, IF INCLUDED, ONLY VIEWABLE IN PDF VERSION OF REPORT Gildardo Jung MD LAB PATHOLOGY ORDERABLES Samantha l Result PATHOLOGY [facility] 3rd Floor [place], [place] [phone] * Colonoscopy (11/13/2023 12:20 PM CDT) Anatomical Region Laterality Modality Other Narrative Procedure Note Gildardo Jung MD - 11/13/2023 12:20 PM CDT GI ENDOSCOPY [facility] Patient Name: Farhana Russo Procedure Date: 11/13/2023 12:20 PM Date of : 1960 Admit Type: Outpatient Age: 63 Gender: Female Attending MD: Gildardo Jung M.D. Room: [facility] ENDOSCOPY ROOM 3 Note Status: [...] The scope was passed under direct vision.The [facility] [id number] endoscope was introducedthrough the anus with the [...] POCT ORDERABLES - DEVICE Final Result GO [facility] [place] [address] documented in this encounter Visit Diagnoses Diagnosis History of chronic ulcerative colitis- Primary documented in this encounter Admitting Diagnoses Diagnosis [...] 1203 (New Bag - Prov ider: Yuliet Linares, ABHAY)1204 (New Bag - Provider: Yuliet Linares RN)1211 [...] 11/13/2023 documented in this encounter Care Teams Installation Helper Relationship Specialty Start Date End Date Kaushal Heath MD [address] [id number] PCP - General Internal Medicine 10/30/23 Bigg Delarosa MD [address] [facility] [address] [place] [address] Referring Physician Gastroenterology 10/15/23 Jefe Choe MD [address] [facility] [address] [facility] [address] [place] [address] Referring Physician Gastroenterology 10/15/23 Melissa Rhodes MD [address] [facility] GYNECOLOGIC ONCOLOGY[address] [address] Consulting Physician Gynecologic Oncology 10/30/23 Chen Philippe, [facility] [address] [facility] ([facility] Mailstop [phone] [place] [address] SHOP Outpatient Waistband Setter Lockstitch 11/07/23 11/13/23 documented as of this encounter
--- OUTSIDE RECORDS SUMMARY | 2024-02-08 04:09 | XMS_ITS | Encounter Summary ---
Author Organization [facility] Address [address] [place] [address] Phone Care Team Providers Care News Reporter Name Role Phone Bigg Delarosa MD Unavailable [phone] Jefe Choe MD Unavailable + Melissa Rhodes MD Unavailable [phone] Kaushal Heath MD Primary Care Provider + [phone] Chen Philippe [facility] Unavailable [phone] Encounter Details Date Type Department Care Team (Late st Contact Info) Description 11/01/2023 Orders Only [facility] Scanning, Provider Social History Tobacco Use [...] Date/Time Associated Diagnosis Comments SCAN - LABS 11/01/2023 documented in this encounter Results * SCAN - LABS (11/01/2023) us Provider Scanning Final Result documented in this encounter Visit Diagnoses Not on filedocumented in this encounter Additional Health Concerns Infection Onset Date Last Indicated Resolved Time COVID: Suspected 11/04/2023 11/04/2023 11/04/2023 1:55 PM CDT documented as of this encounter Care Teams News Reporter Relationship Specialty Start Date End Date Kaushal Heath MD [address] [place] [address] PCP - General Internal Medicine 10/30/23 Bigg Delarosa MD [address] [facility] [address] [address] Referring Physician Gastroenterology 10/15/23 Jefe Choe MD [address] [facility] [address] [place] [address] [place] [address] Referring Physician Gastroenterology 10/15/23 Melissa Rhodes MD [address] [facility] GYNECOLOGIC ONCOLOGY, [address] [address] Consulting Physician Gynecologic Oncology 10/30/23 Chen Philippe LCSW [address] [facility] ([facility] [place] [place]) Mailstop [phone] [place] [address] SHOP Outpatient Vocal Artist 11/07/23 11/13/23 documented as of this encounter
--- OUTSIDE RECORDS SUMMARY | 2024-02-08 04:09 | XMS_ITS | Encounter Summary ---
Author Organization [facility] Address [address] [place] [address] Phone Care Team Providers Care Central Scheduler Name Role Phone Bigg Delarosa MD Unavailable [phone] Jefe Choe MD Unavailable + Melissa Rhodes MD Unavailable [phone] Kaushal Heath MD Primary Care Provider [phone] Chen Philippe [facility] Unavailable [phone] Reason for Referral * Consultation (Routine) - Authorized Specialty Diagnoses / Procedures Referred By Elizabeth tyler Referred To Contact Infectious Diseases Diagnoses Diverticulitis of large intestine with abscess without bleeding Gildardo Jung MD [address] [place] [address] Phone: tel: fax: [facility] (All Locations) Referral ID Status Reason Start Date Expiration Date Visits Requested Visits Authorized [id number] Authorized Specialty Services Required 11/13/2023 12/12/2024 1 1 Question Answer If the required information is not in Epic, please scan this information into the chart prior to sending the referral. Other - records will be reviewed for appropriateness of referral Please select the performing region: [facility] (All Locations) [[id number]] # of visits: 1 Encounter Details Date Type Department Care Team (Late st Contact Info) Description 11/13/2023 Orders Only [facility] Gastroenterology [address] [facility] 12th [place] [address] [place] [address] Gildardo Jung MD [address] [place] [address] Diverticulitis of large intestine with abscess without bleeding (Primary Dx) Social History Tobacco Use Types Packs/Day Years [...] Progress Notes * Che Gamble RN - 11/13/2023 9:14 AM CDT Per Erich: - refer to ID documented in this encounter Plan of Treatment Scheduled Referrals Name Type Priority Associated Diagnoses Order Schedule Ambulatory referral to Infectious Disease Outpatient Referral Routine Diverticulitis of large intestine with abscess without bleeding Expected: 11/27/2023 (Approximate), Expires: 11/12/2024 documented as of this encounter Visit Diagnoses Diagnosis Diverticulitis of large intestine with abscess without bleeding- Primary documented in this encounter Care Teams Central Scheduler Relationship Specialty Start Date End Date Kaushal Heath MD [address] [place] [address] PCP - General Internal Medicine 10/30/23 Bigg Delarosa MD [address] [facility] [address] [place] [address] Referring Physician Gastroenterology 10/15/23 Jefe Choe MD [address] [place] [address] Referring Physician Gastroenterology 10/15/23 Melissa Rhodes MD [address] [facility] GYN[facility]OLOGIC ONCOLOGY, [address] [address] Consulting Physician Gynecologic Oncology 10/30/23 Chen Philippe, [facility] [address] [facility] ([facility]) Mailstop [phone] [place] [address] SHOP Outpatient Practice Clinician 11/07/23 11/13/23 documented as of this encounter
--- OUTSIDE RECORDS SUMMARY | 2024-02-08 04:09 | XMS_ITS | Encounter Summary ---
Author Organization [facility] Address [address] [place] [address] Phone Care Team Providers Care Log Check Scaler Name Role Phone Bethany Arriola MD Unavailable [phone] Bethany Arriola MD Primary Care Provider Reason for Visit * Reason Comments New Patient Encounter Details Date Type Department Care Team (Late st Contact Info) Description 10/02/2023 10:00 AM CDT Office Visit [facility] [address] [facility] 13th [place] [address] [place] [address] Melissa Spear MD [phone] [place] [address] Adnexal mass (Primary Dx); Diverticulitis; Failure to thrive in adult Social History Tobacco Use Types Packs/Day Years [...] Sign Reading Time Taken Comments Blood Pressure 150/76 10/02/2023 10:32 AM CDT Pulse 96 10/02/2023 10:32 AM CDT Temperature 37 ??C (98.6 ??F) 10/02/2023 10:32 AM CDT Respiratory Rate 16 10/02/2023 10:32 AM CDT Oxygen Saturation 100% 10/02/2023 10:32 AM CDT Inhaled Oxygen Concentration - - Weight 67.4 kg (148 lb 8 oz) 10/02/2023 10:32 AM CDT Height 156.3 cm (5' 1.54 ) 10/02/2023 10:32 AM C DT Body Mass Index 27.57 10/02/2023 10:32 AM CDT documented in this encounter Progress Notes * Melissa Spear MD - 10/02/2023 10:00 AM CDT GYNONC Initial Exam Farhana Russo 1960 63 y.o. 10/02/2023 Visit Diagnosis 1. Adnexal mass 2. Diverticulitis 3. Failure to thrive in adult Subjective HPI Farhana is a 63 y.o. postmenopausal woman who presents for referral regarding a newly diagnosed pelvic/adnexal mass. She has been suffering the last month or so with abdominal pain, poor PO intake, abdominal pain, and mucous diarrhea. She has been hospitalized twice and had her gallbladder removed in late August. She is currently being treated for presumed diverticulitis. She reports having a fairly recent diagnosis of ulcerative colitis, and is managed with prn mesalamine. Imaging during this time reported on a 15cm right pelvic cyst. CA125 was relatively normal. Today she is tearful due to the pain, fatigue, and continued gelatinous diarrhea. She denies any current fevers. -Admission for sepsis DDx diverticulitis, cholecystitis -CT A/P 08/26/23: 2.2cm likely hepatic cyst, gallstones & slight thickening, [id number] pelvic cyst,diverticulitis vs colitis rectum, sigmoid, descending colon w/ fat stranding, normal appendix, no ascites or LAD -Pelvic ultrasound: uterus 7.4x2.8x4.6cm, EE 4mm, 12x11.2x15.1cm complex right pelvic cyst w/ nonvascular septations & 3.6cm solid component, minimal free fluid -CA125 = 29, CA19-9= 4 -S/p LSC CCK 09/10/23 CKD (Cr 0.7), HTN, IBD (ulcerative colitis) on mesalamine suppositories, T2DM H/o BTL & recent CCK Addendum: Admission 10/01-10/03 d/c w/ augmentin 875-125mg q8h and flagyl 500mg bid antibiotics (10/03-indefinitely) for colonic microperforation and bactrim (double strength 1 tab q12h until 10/06) for treatment of her ESBL UTI. MRE (magnetic resonance enterography) order placed for outpatient. Inhibin B < 10 09/2023 Op note 09/09 received & reviewed- GB packed w/ stones Review of Systems The patient-completed Review of Systems was reviewed and was scanned as an attachment to this encounter. Patient Active Problem List Diagnosis Moderate protein-calorie malnutrition (CMS/HCC) (HCC) Hypertension Type II diabetes mellitus (HCC) Diverticulitis of intestine Past Medical History: Diagnosis Date Diabetes mellitus (HCC) Hypertension Past Surgical History: Procedure Laterality Date CHOLECYSTECTOMY 08/2023 TUBAL LIGATION Allergies Allergen Reactions Azithromycin Rash Current Outpatient Medications: losartan (COZAAR) 25 mg tablet metFORMIN (GLUCOPHAGE) [address] (PROTONIX) 40 mg EC tablet triamcinolone (KENALOG) 0.1 % paste acetaminophen 500 mg capsule amoxicillin-clavulanate (AUGMENTIN) 875-125 mg per tablet ferrous sulfate 325 mg (65 mg of elemental iron) tablet mesalamine (CANASA) 1,000 mg suppository metroNIDAZOLE (FLAGYL) 500 mg tablet Social History Tobacco Use Smoking status: Never Smokeless tobacco: None Substance and Sexual Activity Drug use: Never Sexual activity: None Alcohol Use: Not on file No family history on file. No LMP recorded. Patient is postmenopausal. OB History 2 Para 2 Term 2 AB Living 2 SAB IAB Ectopic Multiple Live Births Obstetric Comments Twins Screening History History of Abnormal Paps: No Ever had an HPV vaccine?: No Ever used Hormone Replacement Therapy?: No Ever had a mammogram?: Yes Date of Mammogram: 2022 Mammogram result: Normal Ever had a colonoscopy?: Yes Ever had a bone-density test?: Yes Objective Vitals BP 150/76 (BP Location: Right arm, Patient Position: Sitting) Pulse 96 Temp 37 ??C (98.6 ??F) (Temporal) Resp 16 Ht 156.3 cm (5' 1.54 ) Wt 67.4 kg (148 lb 8 oz) SpO2 100% BMI 27.57 kg/m?? Physical exam: General chronically ill appearing, [...] or guarding. She is mildly tender throughout. Inguinal Area: without adenopathy. BUS/External: without lesions. Urethra/Urethral Meatus: without masses or tenderness. Bladder: non-tender. Vagina: without lesions or abnormal discharge. Cervix: no lesions. Uterus: normal in size, mobile, non-tender, no cervical motion tenderness Bimanual: there is smooth fullness in the pelvis Rectovaginal: omitted; she shows me her undergarments that contain calloway gelatinous/mucous material Skin: without rashes. Lower extremities: without edema or calf tenderness. Performance Score: Karnofsky Score: ECOG Score: 2 Lab/Radiology/Diagnostic Review: I have personally reviewed the available office notes, labs, radiology & pathology reports. CT C/A/P (10/02/23) small bilateral pleural effusions, 2.4cm likely post surgical hepatic cyst, [id number] pelvic cyst, likely right adnexa, markedly thick walled sigmoid & descending colon w/ edema & fat stranding, microperforation, no abscess, small ascites Assessment/Plan 63 y.o. with seemingly incidental large complex cystic pelvic mass in the setting of possible diverticulitis with . -type II diabetes -ulcerative colitis -hypertension -recent CCK -protein calorie malnutrition Plan: Obtain operative & pathology report from recent cholecystectomy. Obtain CT & ultrasound images for review. Admit to hospital for further evaluation and management of colitis & failure to thrive. Return visit will be based on inpatient course. Patient Counseling: While she will need operative intervention for the pelvic mass, its radiologic characteristics are fairly benign in appearance and her current GI issue is not well controlled. We will request CRS consultation while inpatient and I plan to have them available at the time of surgery. She will also need follow up with her outpatient GI provider. Melissa Separ MD CC: Encounter Referring Provider: Bethany Arriola MD and PCP: Bethany Arriola MD & Other: Jefe Alcocer MD (GI) Enclosures:None documented in this encounter Plan of Treatment Not on file documented as of this encounter Visit Diagnoses Diagnosis Adnexal mass- Primary Other specified symptom associated with female genital organs Diverticulitis Diverticulitis of colon (without mention of hemorrhage) Failure to thrive in adult Adult failure to thrive documented in this encounter Historical Medications * This list may reflect changes made after this encounter. pantoprazole DR (PROTONIX) 40 mg EC tablet Take 1 tablet (40 mg total) by mouth daily 09/30/2023 losartan (COZAAR) 25 mg tablet Take 1 tablet (25 mg total) by mouth daily 07/31/2023 triamcinolone (KENALOG) 0.1 % paste 08/01/2023 4 sulfamethoxazole- trimethoprim (BACTRIM DS) 800-160 mg per tablet Take by mouth 2 (two) times a day 10/02/2023 4 metFORMIN (GLUCOPHAGE) 500 mg tablet Take 1 tablet (500 mg total) by mouth daily with breakfast 07/16/2023 4 mesalamine (CANASA) 1,000 mg suppository 1 suppository (1,000 mg total) 08/16/2023 4 added in this encounter Care Teams Log Check Scaler Relationship Specialty Start Date End Date Bethany Arriola MD [address] [place] [address] PCP - General Obstetrics and Gynecology 10/02/2310/18 Bethany Arriola MD [address] [place] [address] Obstetrics and Gynecology 09/15/2310/18 documented as of this encounter
== END 2024-02-02 08:09 | disposition home or self-care (01) ==
PROVIDERS: PCP Internal Medicine; Visit Provider Internal Medicine
DX: D50.9 Iron deficiency anemia, unspecified (principal)
CPT/HCPCS: 36415; 82728; 83540; 85027

== ENCOUNTER 2024-02-17 09:16 | Outpatient (CLI) | payer MEDICARE, SELFPAY ==
[2024-02-17 10:39] LABS: Free T3 2.88 pg/mL (2.18-3.98); Thyroid Stimulating Hormone 0.69 uIU/mL (0.36-3.74)
[2024-02-20 14:38] LABS: Red Blood Cell Folate 715 ng/mL RBC (>280)
== END 2024-02-17 09:17 | disposition home or self-care (01) ==
PROVIDERS: PCP Internal Medicine; Visit Provider Internal Medicine
DX: R53.83 Other fatigue (principal); L65.9 Nonscarring hair loss, unspecified; E55.9 Vitamin D deficiency, unspecified
CPT/HCPCS: 36415; 82652; 82747; 84439; 84443; 84481

== ENCOUNTER 2024-04-28 08:08 | Outpatient (CLI) | payer MEDICARE, SELFPAY ==
--- OUTSIDE RECORDS SUMMARY | 2024-04-28 08:22 | XMS_ITS | Referral Summary ---
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 Name Role Phone Bigg Delarosa MD Unavailable [phone] Jefe Choe MD Unavailable + Melissa Rhodes MD Unavailable [phone] Kaushal Heath MD Primary Care Provider [phone] Encounters Date Type Department Care Team Description 04/15/2024 Documentation [facility] Gastroenterology [address] [facility] 12th [place] [address] [place] [address] Che Gamble, RN Treatment Plan Update (04/12/2024 rov) 04/12/2024 11:00 AM SALES SUPERINTENDENT Office Visit [facility] Gastroenterology [address] [facility] 2nd [address] [place] [address] Katherine Stephenson NP Severe malnutrition (CMS/HCC) (Primary Dx); Colostomy in place (HCC); Ulcerative pancolitis with complication (HCC) 04/06/2024 Telephone [facility] [address] [place] [address] 03/26/2024 Telephone [facility] [address] [place] [address] 03/19/2024 Telephone [facility] [address] [place] [address] Jimi Blas, RD 02/27/2024 Documentation [facility] [address] [place] [address] Isabell Meehan, RD 02/25/2024 Documentation [facility] [address] [place] [address] Isabell Meehan, RD 02/20/2024 Telephone [facility] [address] [place] [address] Jimi Blas, RD 02/03/2024 2:30 PM SALES SUPERINTENDENT Office Visit [facility] Surgery [address] [place] [address] Medical Office Building [address] [place] [id number] Yo Ferreira MD Colostomy in place (HCC) (Primary Dx) from Last 3 Months Allergies Active Allergy Reactions Criticality Noted Date Comments Azithromycin Rash Medium 02/17/2007 Medications losartan (COZAAR) 25 mg tablet Take 1 tablet (25 mg total) by mouth daily [address] (PROTONIX) 40 mg EC tablet Take 1 tablet (40 mg total) by mouth daily 4 Active potassium chloride ER 10 mEq CR tablet Take 1 tablet/capsu le (10 mEq total) by mouth daily 4 Active cyanocobalamin (Vitamin B-12) 2,500 mcg tablet, sublingual Take 1 tablet (2,500 mcg total) by mouth daily Active magnesium oxide 500 mg capsule Take by mouth daily Active acetaminophen (TYLENOL) 500 mg tablet Take 2 tablets (1,000 mg total) by mouth every 6 (six) hours as needed (pain) 4 Active prenat.vits,erica, fzg-mljb-ickdt tablet Take by mouth Active Contour Next EZ Meter misc 4 Active Contour Next Test Strips strip USE TO CHECK BLOOD GLUCOSE TWICE A DAY 5 Active ergocalciferol (VITAMIN D) 50,000 unit capsule Take 1 capsule (50,000 Units total) by mouth once a week 5 Active loperamide (IMODIUM) 2 mg capsuleIndicatio ns:Diarrhea Secondary to Inflammatory Bowel Disease Take 1 capsule (2 mg total) by mouth 4 (four) times a day as needed for diarrhea 04/12/19 Discontinu ed(Therapy completed) polyethylene glycol (MIRALAX) 17 gram/dose bulk powderIndication s:constipation Take 17 g by mouth daily 116 g 2 4 04/12/19 25 Discontinu ed(Therapy completed) oxyCODONE (ROXICODONE) 5 mg immediate release tabletIndication s:Pain Take 1 tablet (5 mg total) by mouth every 4 (four) hours as needed for pain 15 tablet 04/12/19 Discontinu ed(Therapy completed) Active Problems Problem Noted Date Diagnosed Date Colostomy in place 01/13/2024 Fever 12/09/2023 Ulcerative pancolitis with complication 12/05/19 Assessment & Plan (12/26/2023 11:47 AM SALES SUPERINTENDENT): Patient is a 63 y.o. female with a history of hypertension, type 2 diabetes, and inflammatory bowel disease who is admitted from Gastroenterology Clinic for progressive weight loss and nausea in the setting of multiple admissions for diverticulitis complicated by contained sigmoid perforation, scattered liver and spleen abscesses and adnexal mass. She was admitted to [facility] on 11/24 for further workup and [...] Patient went to the OR 12/23 with PROJECT MANAGER/DESIGN MANAGER, CRS and urology for ex lap, left colectomy with end colostomy, LIBRA, BSO and ureteral stent placement. Surgery reporting source control archived. Given source control has been achieved, we are planning on 5 days of antibiotics from surgery. 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 No plans for repeat imaging given improvement. Continue antibiotics as described elsewhere. Pulmonary nodule 11/26/2023 Assessment & Plan (12/26/2023 11:38 AM SALES SUPERINTENDENT): Patient is a 63 y.o. female with a history of hypertension, type 2 diabetes, and inflammatory bowel disease who is admitted from Gastroenterology Clinic for progressive weight loss and nausea in the setting of multiple admissions for diverticulitis complicated by contained sigmoid perforation, scattered liver and spleen abscesses and adnexal mass. She was admitted to [facility] on 11/24 for further workup and [...] 11/27: Negative BAL bacterial 11/27: upper respiratory horacio BAL CMV 11/27: Not detected Mold blood [...] 11/26/2023 Assessment & Plan (12/25/2023 12:55 PM SALES SUPERINTENDENT): Near resolution of hepatic and splenic abscesses. No plans for repeat imaging given improvement. Continue antibiotics as described elsewhere. 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 Hypertension 10/20/2023 Type II diabetes mellitus 10/20/2023 Diverticulitis of intestine 10/20/2023 Resolved Problems Problem Noted Date Diagnosed Date Resolved Date Moderate protein-calorie malnutrition 10/03/2023 11/25/2023 Abdominal pain 10/02/2023 10/20/2023 Immunizations Immunization Administration Dates Next Due Tdap 10/27/2020,12/29/2019 Social History Tobacco Use Types Packs/Day Years Used Date Smoking Tobacco: Never Passive Smoke Exposure: Never Smokeless Tobacco: Never Tobacco Cessation:Counseling Given: Not Answered [facility] Utilities Answer Date Recorded In the past 12 months has [employer], gas, oil, or water company threatened to [...] often do you attend chur ch or zoroastrianism services? 1 to 4 times per year 11/29/2023 Do you belong to any clubs o r organizations such as rastafari groups, unions, fraternal or athletic groups, or [...] any time in the past 12 m [facility], were you homeless or living in [...] Sign Reading Time Taken Comments Blood Pressure 117/73 04/12/2024 10:37 AM SALES SUPERINTENDENT Pulse 85 04/12/2024 10:37 AM SALES SUPERINTENDENT Temperature 36.3 C (97.3 F) 04/12/2024 10:37 AM SALES SUPERINTENDENT Respiratory Rate 16 01/22/2024 4:07 PM SALES SUPERINTENDENT Oxygen Saturation 100% 04/12/2024 10:37 AM SALES SUPERINTENDENT Inhaled Oxygen Concentration - - Weight 59.4 kg (131 lb) 04/12/2024 10:37 AM SALES SUPERINTENDENT Height 154.9 cm (5' 1 ) 04/12/2024 10:37 AM SALES SUPERINTENDENT Body Mass Index 24.75 04/12/2024 10:37 AM SALES SUPERINTENDENT Plan of Treatment Not on file Procedures Procedure Name Priority Date/Time Associated Diagnosis Comments EGFR Timed 12/28/2023 10:18 PM SALES SUPERINTENDENT LIPID PANEL STAT 12/04/2023 5:24 PM CDT COLONOSCOPY 11/13/2023 12:20 PM CDT HEMOGLOBIN A1C STAT 11/04/2023 7:56 AM CDT HEPATITIS C ANTIBODY Routine 10/27/2023 9:30 AM CDT History of chronic ulcerative colitis High risk medications (not anticoagulants) long-term use from Last 3 Months or Most Recently Relevant to Health Maintenance Results * eGFR (12/28/2023 10:18 PM SALES SUPERINTENDENT) eGFR 83 >=60 mL/min/1. 73 m2 Comment: Interpretive Data Reference Interval Normal >/= 90 mL/min/1.73m2 Mildly decreased* 60 - 89 mL/min/1.73m2 Mildly to moderately decreased 45 - 59 mL/min/1.73m2 Moderately to severely decreased 30 - 44 mL/min/1.73m2 Severely decreased 15 - 29 mL/min/1.73m2 Kidney Failure < 15 mL/min/1.73m2 *Relative to young adult level Estimated glomerular [...] reviewed 2020. Blood 12/28/2023 10:1 8 PM SALES SUPERINTENDENT 12/28/2023 11:12 PM SALES SUPERINTENDENT us Yo Ferreira MD LAB BLOOD ORDERABLES Final R esult [facility] Department [place] [address] * (ABNORMAL) Lipid panel (12/04/2023 5:24 PM CDT) Cholesterol 71 30 - 199 mg/dL Comment: Interpretive Data Ages < or = 19 years Acceptable: <170 mg/dL Borderline high: 170-199 mg/dL High: >or= 200 mg/dL Ages > or = 20 years Desirable: <200 mg/dL Borderline high: 200-239 mg/dL High: >or= 240 mg/dL Literature References: 1. Expert Panel on Integrated Guidelines for Cardiovascular Health and Risk Reduction in Children and Adolescents. Pediatrics 2011;128:S213 2. NCEP Expert Panel. Circulation 2004;110:227 Current Interpretive Data was last revised on 2017. Triglycerides 75 <=149 mg/dL [facility] Comment: Interpretive Data Ages < or = 9 years Acceptable: <75 mg/dL Borderline high: 75-99 mg/dL High: >or= 100 mg/dL Ages 10 to 20 years Acceptable: <90 mg/dL Borderline high: 90-129 mg/dL High: >or= 130 mg/dL Ages > or = 20 years Desirable: <150 mg/dL Borderline high: 150-199 mg/dL High: 200-499 mg/dL Very high: >or= 499 mg/dL Literature References: 1. Expert Panel on Integrated Guidelines for Cardiovascular Health and Risk Reduction in Children and Adolescents. Pediatrics 2011;128:S213 2. NCEP Expert Panel. Circulation 2004;110:227 Current Interpretive Data was last revised on 2017. HDL 27(L) >=40 mg/dL [facility] Comment: Interpretive Data Ages < or = 19 years Acceptable: >45 mg/dL Borderline low: 40-45 mg/dL Low: <40 mg/dL Ages > or = 20 years Desirable: >or= 60 mg/dL Low: <40 mg/dL Literature References: 1. Expert Panel on Integrated Guidelines for Cardiovascular Health and Risk Reduction in Children and Adolescents. Pediatrics 2011;128:S213 2. NCEP Expert Panel. Circulation 2004;110:227 Current Interpretive Data was last revised on 2017. LDL, calculated 28 <=129 mg/dL [facility] Comment: Interpretive Data Ages < or = 19 years Acceptable: <110 mg/dL Borderline high: 110-129 mg/dL High: >or= 130 mg/dL Ages > or = 20 years Optimal: <100 mg/dL Near optimal: 100-129 mg/dL Borderline high: 130-159 mg/dL High: >160 mg/dL Calculated using the Paul LDL-C estimating equation. This equation was implemented on 2023. Prior to this date LDL-C was estimated using the Friedewald equation. Literature References: 1. Expert Panel on Integrated Guidelines for Cardiovascular Health and Risk Reduction in Children and Adolescents. Pediatrics 2011;128:S213 2. NCEP Expert Panel. Circulation 2004;110:227 3. Paul Martel al. VAL Cardiol. 2020 June 17;5(5):540-548. doi: 10.1001/jamacardio.2020.0013 Current Interpretive Data was last revised on 2023. Non-HDL Cholesterol 44 mg/dL [facility] Comment: Interpretive Data Ages < or = 19 years Acceptable: <120 mg/dL Borderline high: 120-144 mg/dL High: >145 mg/dL Ages > or = 20 years When triglycerides are >200 mg/dL, Non-HDL cholesterol is a secondary target of therapy with treatment goals that are 30 mg/dL greater than the LDL cholesterol target. Literature References: 1. Expert Panel on Integrated Guidelines for Cardiovascular Health and Risk Reduction in Children and Adolescents. Pediatrics 2011;128:S213 2. NCEP Expert Panel. Circulation 2004;110:227 Current Interpretive Data was last revised on 2017. Chol/HDL ratio 3 [facility] Blood 12/04/2023 5:24 PM CDT 12/04/2023 5:34 PM CDT [facility]ative [facility] - 12/04/2023 7:03 PM CDT This lipid panel was automatically ordered due to a significant change in Troponin. The dietary status of the patient at the collection time should be correlated with the lipid results. us Álvaro Radford MD LAB BLOOD ORDERABLES Final Result [facility] Department [place] [address] * Colonoscopy (11/13/2023 12:20 PM CDT) Anatomical Region Laterality Modality Other Narrative Procedure Note Gildardo Jung MD - 11/13/2023 12:20 PM CDT [facility] ENDOSCOPY [facility] Patient Name: Farhana Russo Procedure Date: 11/13/2023 12:20 PM Date of : 1960 Admit Type: Outpatient Age: 63 Gender: Female Attending MD: Gildardo Jung M.D. Room: [facility] ENDOSCOPY ROOM 3 Note Status: Finalized [...] The scope was passed under direct vision.The [facility] [id number] endoscope was introducedthrough the anus with [...] MD ENDOSCOPY PROCEDURES Final Re sult * (ABNORMAL) Hemoglobin A1c (11/04/2023 7:56 AM CDT) Hgb A1C 5.7(H) 4.0 - 5.6 % Estimated Average Glucose 117 mg/dL [facility] Comment: The ADA recommends reporting an estimated Average Glucose (eAG) with all Hemoglobin A1c results using the equation derived from a study of 507 normal and diabetic adults. Minority populations were underrepresented and children were not included. (Diabetes Care 2020; 43(S1): S66-S76). The eAG is not equivalent to a fasting glucose. Blood 11/04/2023 7:56 AM CDT 11/04/2023 8:37 AM CDT us Pilo Davis MD LAB BLOOD ORDERABLES F inal Result [facility] Department [place] [address] * Hepatitis C antibody Blood (10/27/2023 9:30 AM CDT) Hep C Ab Nonreactive Nonreactive Comment: Interpretive Data Nonreactive: Antibodies to HCV not detected. Does NOT exclude the possibility of recent exposure to HCV. Equivocal: Equivocal for HCV antibodies. Supplemental molecular testing will be automatically performed to determine infection status in accordance with current CDC screening recommendations. Reactive: Positive for HCV antibodies. This may represent current or past HCV infection. Supplemental molecular testing will be automatically performed to determine current infection status in accordance with current CDC screening recommendations. Interpretive data was last revised on 2019. Testing performed by: [facility], [address] [place] [address]., [address] Blood 10/27/2023 9:30 AM CDT 10/27/2023 12:43 PM CDT Gildardo Jung MD LAB MICROBIOLOGY - GENERAL OR DERABLES Edited Result - Final Performing Organization Address City/State/ZIP Co ga Phone Number [facility] [address] [facility]. [employer] [place] [address] from Last 3 Months or Most Recently Relevant to Health Maintenance Additional Health Concerns Infection Onset Date Last Indicated MDR gram neg/ESBL 12/24/2023 12/24/2023 VRE 12/24/2023 12/24/2023 Insurance MEDICARE [facility] Address[address] [address] [facility] [place] [address] [facility] HMO/PPO Address: [facility] [address] [place] [address] MEDICARE Advance Directives For more information, please contact: [phone] * Full Code (Latest Code Status on File) Date Activated Date Inactivated Comments 11/25/2023 7:02 PM 12/30/2023 10:03 PM * Full Code Date Activated Date Inactivated Comments 11/13/2023 12:01 PM 11/13/2023 6:29 PM * Full Code Date Activated Date Inactivated Comments 11/05/2023 5:00 PM 11/06/2023 7:28 PM * Full Code Date Activated Date Inactivated Comments 10/02/2023 1:03 PM 10/04/2023 6:43 PM Care Teams Metal Miner Blasting Relationship Specialty Start Date End Date Kaushal Heath MD [address] [place] [address] PCP - General Internal Medicine 10/30/23 Bigg Delarosa MD [address] [facility] [address] [address] Referring Physician Gastroenterology 10/15/23 Jefe Choe MD [address] [place] [place] [address] [place] [address] Referring Physician Gastroenterology 10/15/23 Melissa Rhodes MD [address] [facility] G[facility] ONCOLOGY[address] [address] Consulting Physician Gynecologic Oncology 10/30/23
--- OUTSIDE RECORDS SUMMARY | 2024-04-28 08:22 | XMS_ITS | Clinical Summary ---
Author Organization [facility] Address [address] [place] [address] Care Team Providers Care Immigration Judge Name Role Phone Bigg Delarosa MD Unavailable [phone] Jefe Choe MD Unavailable + Melissa Rhodes MD Unavailable [phone] Kaushal Heath MD Primary Care Provider [phone] Allergies Active Allergy Reactions Criticality Noted Date [...] hours as needed (pain) 4 Active prenat.vits,erica, [id number] tablet Take by mouth Active Contour Next [...] as needed for pain 15 tablet 04/12/19 25 Discontinu ed(Therapy completed) Active Problems Problem Noted Date Diagnosed Date Colostomy in place 01/13/2024 Fever 12/09/2023 Ulcerative pancolitis with complication 12/05/19 Assessment & Plan (12/26/2023 11:47 AM HUMAN DEVELOPMENT PROFESSOR): Patient is a 63 y.o. female with a history of hypertension, type 2 diabetes, and inflammatory bowel disease who is admitted from [facility]ology Clinic for progressive weight loss and nausea in the setting of multiple admissions for diverticulitis complicated by contained sigmoid perforation, scattered liver and spleen abscesses and adnexal mass. She was admitted to [facility] on 11/24 for further workup [...] Patient went to the OR 12/23 with BOWLING FLOOR DESK CLERK, CRS and urology for ex lap, left colectomy with end colostomy, LIBRA, BSO and ureteral stent placement. Surgery reporting source control archived. Given source control has been achieved, we are planning on 5 days of antibiotics from surgery. 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 No plans for repeat imaging given improvement. Continue antibiotics as described elsewhere. Pulmonary nodule 11/26/2023 Assessment & Plan (12/26/2023 11:38 AM HUMAN DEVELOPMENT PROFESSOR): Patient is a 63 y.o. female with a history of hypertension, type 2 diabetes, and inflammatory bowel disease who is admitted from Gastro[facility]ology Clinic for progressive weight loss and nausea in the setting of multiple admissions for diverticulitis complicated by contained sigmoid perforation, scattered liver and spleen abscesses and adnexal mass. She was admitted to [facility] on 11/24 for further workup [...] 11/26/2023 Assessment & Plan (12/25/2023 12:55 PM HUMAN DEVELOPMENT PROFESSOR): Near resolution of hepatic and splenic abscesses. [...] malnutrition 10/03/2023 11/25/2023 Abdominal pain 10/02/2023 10/20/2023 Encounters Date Type Department Care Team Description 04/15/2024 Documentation [facility] Gastroenterology [address] [address] [facility] [address] [address] [place] [address] [place] [address] Che Gamble, ABHAY Treatment Plan Update (04/12/2024 rov) 04/12/2024 11:00 AM HUMAN DEVELOPMENT PROFESSOR Office Visit [facility] Gastroenterology [address] 2[address] [place] [address] Katherine Stephenson NP Severe malnutrition (CMS/HCC) (Primary Dx); Colostomy in place (HCC); Ulcerative pancolitis with complication (HCC) 04/06/2024 Telephone [facility] Nutrition Counseling [address] [place] [address] Carmen Johnson, RD 03/26/2024 Telephone [facility] [address] [place] [address] Jimi Blas, RD 03/19/2024 Telephone [facility] [address] [place] [address] Jimi Blas, RD 02/27/2024 Documentation [facility] [address] [place] [address] Isabell Meehan, RD 02/25/2024 Documentation [facility] [address] [place] [address] Isabell Meehan, RD 02/20/2024 Telephone [facility] [address] [place] [address] Jimi Blas, RD 02/03/2024 2:30 PM HUMAN DEVELOPMENT PROFESSOR Office Visit [facility] Surgery [address] [place] [address] Medical Office Building [address] [place] [phone] Yo Ferreira MD Colostomy in place (HCC) (Primary Dx) from Last 3 Months Immunizations Immunization Administration Dates Next Due Tdap 10/27/2020,12/29/2019 Surgical History Surgery Date Site/Laterality Comments TUBAL LIGATION CHOLECYSTECTOMY 08/18/2023 - 09/17/2023 COLONOSCOPY 02/17/2021 - 02/16/2022 LEFT COLECTOMY 12/24/2023 WITH END COLOSTOMY TOTAL ABDOMINAL HYSTERECTOMY W/ BILATERAL SALPINGOOPHORECTOMY 12/24/2023 Medical History Medical History Date Comments Hypertension Diabetes mellitus (HCC) Adrenal mass Diverticulitis Family History Medical History Relation Name Comments Emphysema Father Diabetes Mother Anesthesia problems Neg Hx Malig Hypertension Neg Hx Malig Hyperthermia Neg Hx Pseudochol deficiency Neg Hx Relation Name Status Comments Father Mother Social History Tobacco Use Types Packs/Day Years Used Date Smoking Tobacco: Never Passive Smoke Exposure: Never Smokeless Tobacco: Never Tobacco Cessation:Counseling Given: Not Answered [facility] Utilities Answer Date Recorded In the past [...] often do you attend chur ch or worship services? 1 to 4 times [...] any time in the past 12 [facility], were you homeless or living in a alf (including now)? No 11/29/2023 Personal Safety Answer [...] Comments Blood Pressure 117/73 04/12/2024 10:37 AM HUMAN DEVELOPMENT PROFESSOR Pulse 85 04/12/2024 10:37 AM HUMAN DEVELOPMENT PROFESSOR Temperature 36.3 C (97.3 F) 04/12/2024 10:37 AM HUMAN DEVELOPMENT PROFESSOR Respiratory Rate 16 01/22/2024 4:07 PM HUMAN DEVELOPMENT PROFESSOR Oxygen Saturation 100% 04/12/2024 10:37 AM HUMAN DEVELOPMENT PROFESSOR Inhaled Oxygen Concentration - - Weight 59.4 kg (131 lb) 04/12/2024 10:37 AM HUMAN DEVELOPMENT PROFESSOR Height 154.9 cm (5' 1 ) 04/12/2024 10:37 AM HUMAN DEVELOPMENT PROFESSOR Body Mass Index 24.75 04/12/2024 10:37 AM HUMAN DEVELOPMENT PROFESSOR Plan of Treatment Health Maintenance Due Date Last Done Comments Albumin Creatinine Ratio, Urine 1960 Breast Cancer Screening-Mammogram 1960 Osteoporosis Screening-Bone Density Scan 1960 Dilated Eye Exam 1960 Foot Exam 1960 Pneumococcal vaccine 65+ (1 of 2 - PCV) 1977 Zoster Vaccine (1 of 2) 2008 Well [...] Diagnosis Comments EGFR Timed 12/28/2023 10:18 PM HUMAN DEVELOPMENT PROFESSOR LIPID PANEL STAT 12/04/2023 5:24 PM CDT COLONOSCOPY 11/13/2023 12:20 PM CDT HEMOGLOBIN A1C STAT 11/04/2023 7:56 AM CDT HEPATITIS C ANTIBODY Routine 10/27/2023 9:30 AM CDT History of chronic ulcerative colitis High risk medications (not anticoagulants) long-term use from Last 3 Months or Most Recently Relevant to Health Maintenance Results * eGFR (12/28/2023 10:18 PM HUMAN DEVELOPMENT PROFESSOR) eGFR 83 >=60 mL/min/1. 73 m2 Comment: [...] reviewed 2020. Blood 12/28/2023 10:1 8 PM HUMAN DEVELOPMENT PROFESSOR 12/28/2023 11:12 PM HUMAN DEVELOPMENT PROFESSOR us Yo Ferreira MD LAB BLOOD ORDERABLES Final R esult [facility] Department [place] [address] * (ABNORMAL) Lipid panel (12/04/2023 5:24 PM [...] on 2017. HDL 27(L) >=40 mg/dL [facility] Comment: Interpretive Data Ages < [...] 2017. LDL, calculated 28 <=129 mg/dL [facility] Comment: Interpretive Data Ages < [...] on 2023. Non-HDL Cholesterol 44 mg/dL [facility] Comment: Interpretive Data Ages < [...] last revised on 2017. Chol/HDL ratio 3 [facility] Blood 12/04/2023 5:24 PM CDT 12/04/2023 5:34 PM CDT Narrative [facility] - 12/04/2023 7:03 PM CDT This lipid panel was automatically ordered due to a significant change in Troponin. The dietary status of the patient at the collection time should be correlated with the lipid results. us Álvaro Radford MD LAB BLOOD ORDERABLES Final Result [facility] Department [place] [address] * Colonoscopy (11/13/2023 12:20 PM CDT) Anatomical Region Laterality Modality Other Narrative Procedure Note Gildardo Jung MD - 11/13/2023 12:20 PM CDT [facility] ENDOSCOPY [facility] Patient Name: Farhana Russo Procedure Date: 11/13/2023 12:20 PM Date of : 1960 Admit Type: Outpatient Age: 63 Gender: Female Attending MD: Gildardo Jung M.D. Room: [facility] ENDOSCOPY ROOM 3 Note Status: Finalized [...] The scope was passed under direct vision.The [facility] [id number] endoscope was introducedthrough the anus with [...] Hemoglobin A1c (11/04/2023 7:56 AM CDT) Pathologist [facility] Hgb A1C 5.7(H) 4.0 - 5.6 % [...] LAB BLOOD ORDERABLES F inal Result GO [facility] Department [place] [address] * Hepatitis C antibody Blood (10/27/2023 9:30 [...] revised on 2019. Testing performed by: [facility], [address] [place] [address]., [address] Blood 10/27/2023 9:30 AM CDT 10/27/2023 12:43 PM CDT Gildardo Jung MD LAB MICROBIOLOGY - GENERAL OR DERABLES Edited Result - Final Performing Organization Address City/State/ZIP Co id Phone Number [facility] [id number] [facility]. 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 12/24/2023 Insurance MEDICARE [facility] [place] [address] [facility] MEDICARE Advance Directives For more information, please contact: [phone] * Full Code (Latest Code Status on File) Date Activated Date Inactivated Comments 11/25/2023 7:02 PM 12/30/2023 10:03 PM * Full Code Date Activated Date Inactivated Comments 11/13/2023 12:01 PM 11/13/2023 6:29 PM * Full Code Date Activated Date Inactivated Comments 11/05/2023 5:00 PM 11/06/2023 7:28 PM * Full Code Date Activated Date Inactivated Comments 10/02/2023 1:03 PM 10/04/2023 6:43 PM Care Teams Immigration Judge Relationship Specialty Start Date End Date Heath, Rajneesh S., MD [address] [place] [address] PCP - General Internal Medicine 10/30/23 Bigg Delarosa MD [address] [facility] [address] [address] Referring Physician Gastroenterology 10/15/23 Jefe Choe MD [address] [facility] [address] [place] [address] [place] [address] Referring Physician Gastroenterology 10/15/23 Melissa Rhodes MD [address] [facility] GYNECOLOGIC ONCOLOGY, [address] [address] Consulting Physician Gynecologic Oncology 10/30/23
--- OUTSIDE RECORDS SUMMARY | 2024-04-28 08:22 | XMS_ITS ---
Author Organization [facility] Address [address] [place] [address] Care Team Providers Care Seamless Hosiery Knitter Name Role Phone Bigg Delarosa MD Unavailable [phone] Jefe Choe MD Unavailable + Melissa Rhodes MD Unavailable [phone] Kaushal Heath MD Primary Care Provider [phone] Active Problems Problem Noted Date Diagnosed Date Colostomy in place 01/13/2024 Fever 12/09/2023 Ulcerative pancolitis with complication 12/05/19 Assessment & Plan (12/26/2023 11:47 AM ELECTRIC MULE OPERATOR): Patient is a 63 y.o. female with a history of hypertension, type 2 diabetes, and inflammatory bowel disease who is admitted from Gastroenterology Clinic for progressive weight loss and nausea in the setting of multiple admissions for diverticulitis complicated by contained sigmoid perforation, scattered liver and spleen abscesses and adnexal mass. She was admitted to [facility] on 11/24 for further workup and [...] Patient went to the OR 12/23 with PATIENT ACCOUNTING REPRESENTATIVE, CRS and urology for ex lap, left colectomy with end colostomy, LIBRA, BSO and ureteral stent placement. Surgery reporting source control archived. Given source control has been achieved, we are planning on 5 days of antibiotics from surgery. 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 No plans for repeat imaging given improvement. Continue antibiotics as described elsewhere. Pulmonary nodule 11/26/2023 Assessment & Plan (12/26/2023 11:38 AM ELECTRIC MULE OPERATOR): Patient is a 63 y.o. female with a history of hypertension, type 2 diabetes, and inflammatory bowel disease who is admitted from Gastroenterology Clinic for progressive weight loss and nausea in the setting of multiple admissions for diverticulitis complicated by contained sigmoid perforation, scattered liver and spleen abscesses and adnexal mass. She was admitted to [facility] on 11/24 for further workup and [...] 11/26/2023 Assessment & Plan (12/25/2023 12:55 PM ELECTRIC MULE OPERATOR): Near resolution of hepatic and splenic abscesses. No plans for repeat imaging given improvement. Continue antibiotics as described elsewhere. 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 Past Treatment and Therapy Plans No past plan information found. Lifetime Dose Tracking * Chemical Lifetime Dose Automatic Entry Manual Entr y DLP 5,342 mGycm 5,342 mGycm 0 mGycm Resolved Problems Problem Noted Date Diagnosed Date Resolved Date Moderate protein-calorie malnutrition 10/03/2023 11/25/2023 Abdominal pain 10/02/2023 10/20/2023
[2024-04-28 08:25] LABS: Hematocrit 33.8 % (35.0-42.0); Hemoglobin 11.4 g/dL (11.7-13.8); Mean Corpuscular HGB Conc 33.7 g/dL (32-36); Mean Corpuscular Hemoglobin 30.6 pg (27.0-31.0); Mean Corpuscular Volume 90.9 fL (78.0-102.0); Mean Platelet Volume 8.9 fl (9.2-11.8); Platelet Count Result 163 K/mm3 (150-420); Red Blood Count 3.72 M/mm3 (4.20-5.40); Red Cell Distribution Width 13.4 % (11.6-14.4); White Blood Count 4.9 K/mm3 (4.8-10.8)
[2024-04-28 08:47] LABS: Hemoglobin A1C 5.7 % (<5.7)
[2024-04-28 09:31] LABS: Alanine Aminotransferase 33 U/L (14-59); Albumin Level 4.1 g/dL (3.4-5.0); Alkaline Phosphatase 119 U/L (46-116); Anion Gap 7 mmol/L (4-12); Aspartate Amino Transferase 21 U/L (15-37); Bilirubin,Total 0.6 mg/dL (0.00-1.00); Blood Urea Nitrogen 33 mg/dL (7-18); Calcium 9.6 mg/dL (8.5-10.1); Carbon Dioxide 30 mmol/L (21-32); Chloride 106 mmol/L (98-108); Cholesterol 152 mg/dL (0-200); Estimated Glomerular Filt Rate 48; Free T4 Free Thyroxine 0.95 ng/dL (0.76-1.46); Glucose 116 mg/dL (70-99); HDL Direct 52 mg/dL (40-60); Iron 68 ug/dL (50-170); LDL Cholesterol Calculated 88 mg/dL (<130); Osmolality Calculated 304 mOsm/kg (285-295); Potassium 4.3 mmol/L (3.5-5.1); Sodium 143 mmol/L (136-145); Thyroid Stimulating Hormone 2.25 uIU/mL (0.36-3.74); Total Protein 7.9 g/dL (6.4-8.2); Triglycerides 59 mg/dL (0-150)
[2024-04-28 09:36] LABS: Vitamin B12 > 2000 pg/mL (193-986)
[2024-04-28 09:37] LABS: Free T3 3.04 pg/mL (2.18-3.98)
[2024-04-28 10:35] LABS: Add Urine Microscopic? YES; Appearance Urine Clear (Clear); Bilirubin Urine Negative (Negative); Blood Urine 3+ (Negative); Color Urine Brown (Yellow); Glucose Urine UA Negative (Negative); Ketones Urine Negative (Negative); Leukocyte Esterase Ur 2+ LEU/UL (Negative); Nitrate Urine Negative (Negative); Protein Urine 2+ (Negative); Specific Grav Ur >= 1.030 (1.010-1.020); Urobilinogen Urine 0.2 mg/dL (0.2-1.0); pH Urine 5.5 (5.0-8.0)
[2024-04-28 10:41] LABS: Bacteria Urine 1+ /hpf; Squamous Epithelial Cell Urine Few /hpf (Few)
[2024-04-28 14:15] LABS: Ferritin 431 ng/mL (8-252)
[2024-04-30 02:44] LABS: Vitamin D 25 Hydroxy 85 ng/mL (30-100)
[2024-04-30 17:53] LABS: Red Blood Cell Folate 721 ng/mL RBC (>280)
== END 2024-04-28 08:09 | disposition home or self-care (01) ==
LOC: CHSLAB 08:12
PROVIDERS: PCP Internal Medicine; Visit Provider Internal Medicine
DX: R82.90 Unspecified abnormal findings in urine (principal); E78.2 Mixed hyperlipidemia; E11.9 Type 2 diabetes mellitus without complications; D50.9 Iron deficiency anemia, unspecified; N39.0 Urinary tract infection, site not specified; E55.9 Vitamin D deficiency, unspecified; R53.83 Other fatigue
CPT/HCPCS: 36415; 80053; 80061; 81001; 82306; 82607; 82728; 82747; 83036; 83540; 84439; 84443; 84481; 85027; 87086

== ENCOUNTER 2024-04-30 10:25 | Outpatient (CLI) | payer MEDICARE, SELFPAY | END 2024-04-30 10:26 | disposition home or self-care (01) | LOC: CHSLAB 10:28 | PROVIDERS: PCP Internal Medicine; Visit Provider Internal Medicine | DX: R31.9 Hematuria, unspecified (principal) | CPT/HCPCS: 88112 ==

== ENCOUNTER 2024-05-11 08:52 | Outpatient (CLI) | payer MEDICARE, OTHER, SELFPAY ==
--- NOTE | ~2024-05-11 | CT_ITS ---
EXAMINATION: CT abdomen pelvis wo/w con DATE: 05/11/2024 10:00 INDICATION: Hematuria. TECHNIQUE: Computed tomography (CT) of the abdomen and pelvis was performed without and with intraven ous contrast using a total of 130 mL Omnipaque-350 intravenous contrast with a double-bolus technique for simultaneous opacification of the renal parenchyma and renal collecting system. Automated exposu re control and iterative reconstruction technique were employed. The dose-length product was 595.55 m Gy-cm. COMPARISON: CT abdomen and pelvis 09/24/23 FINDINGS: The visualized portions of the lung bases are clear without pneumonia or pleural effusion. The heart size is normal. There are coronary artery calcifications. No pericardial effusion. The liver is geeta l. There are changes of cholecystectomy. The spleen, pancreas, adrenal glands, and right kidney are n ormal. Right ureter is well opacified and is normal. There is a staghorn calculus with central hypode nsity in left kidney measuring 2.3 cm on transaxial images. There are 3 mm and 4 mm stones in left ki dney. There is fat stranding at the hilum of left kidney, consistent with inflammation. Left ureter i s well opacified and is normal. The bladder is normal. There is an end colostomy on the left. There a re no dilated loops of bowel. The appendix is normal. There is a 10 x 12 mm left external iliac node. There is no ascites. There is severe thoracic and lumbar spondylosis. IMPRESSION: 1. Staghorn calculus in left kidney. 2. Borderline enlarged left external iliac node, likely reactive. Reviewed, dictated and finalized at location A.
--- OUTSIDE RECORDS SUMMARY | 2024-05-11 09:34 | XMS_ITS | Clinical Summary ---
Author Organization [facility] Address [facility] [place] [address] Care Team Providers Care Central Office Operator Supervisor Name Role Phone Bigg Delarosa MD Unavailable [phone] Jefe Choe MD Unavailable + Melissa Rhodes MD Unavailable [phone] Kaushal Heath MD Primary Care Provider + [phone] Allergies Active Allergy Reactions Criticality Noted Date Comments Azithromycin Rash Medium 02/17/2007 Medications losartan (COZAAR) 25 mg tablet Take 1 tablet (25 mg total) by mouth daily 07/31/[address] (PROTONIX) 40 mg EC tablet Take 1 tablet (40 mg total) by mouth daily 09/30/19 24 Active potassium chloride ER 10 mEq CR tablet Take 1 tablet/capsule (10 mEq total) by mouth daily 10/30/19 24 Active cyanocobalamin (Vitamin B-12) 2,500 mcg tablet, sublingual Take 1 tablet (2,500 mcg total) by mouth daily Active magnesium oxide 500 mg capsule Take by mouth daily Active acetaminophen (TYLENOL) 500 mg tablet Take 2 tablets (1,000 mg total) by mouth every 6 (six) hours as needed (pain) 12/30/19 24 Active prenat.vits,erica,m mk-fwlt-lljrs tablet Take by mouth Active Contour Next EZ Meter misc 01/24/20 24 Active Contour Next Test Strips strip USE TO CHECK BLOOD GLUCOSE TWICE A DAY 03/18/19 25 Active ergocalciferol (VITAMIN D) 50,000 unit capsule Take 1 capsule (50,000 Units total) by mouth once a week 02/23/19 25 Active sodium, potassium & mag sulfates (Suprep Bowel Prep Kit) 17.5-3.13-1.6 gram recon solnIndications:B owel Evacuation Drink first half of prep at 6:00 pm the night before procedure. Drink second half of prep 4 hours prior to leaving home for procedure. 354 mL 05/12/19 25 Active ondansetron ODT (ZOFRAN-ODT) 8 mg disintegrating tablet Take 1 tablet (8 mg total) by mouth once for 1 dose The day before surgery take one tablet (8 mg) at 11:00 to prevent nausea. 1 tablet 05/12/19 25 Active neomycin (MYCIFRADIN) 500 mg tablet The day before surgery take neomycin 1000 mg (2 tablets) by mouth at 1 PM, 2 PM, and 10 PM. 6 tablet 05/12/19 25 Active metroNIDAZOLE (FLAGYL) 500 mg tablet The day before surgery take metronidazole (Flagyl) 500 mg by mouth at 1 PM, 2 PM, and 10 PM. 3 tablet 05/12/19 25 Active loperamide (IMODIUM) 2 mg capsuleIndication s:Diarrhea Secondary to Inflammatory Bowel Disease Take 1 capsule (2 mg total) by mouth 4 (four) times a day as needed for diarrhea 025 Discontin ued(Thera py completed ) polyethylene glycol (MIRALAX) 17 gram/dose bulk powderIndications :constipation Take 17 g by mouth daily 116 g 2 12/30/19 24 025 Discontin ued(Thera py completed ) oxyCODONE (ROXICODONE) 5 mg immediate release tabletIndications :Pain Take 1 tablet (5 mg total) by mouth every 4 (four) hours as needed for pain 15 tablet 12/30/19 025 Discontin ued(Thera py completed ) Active Problems Problem Noted Date Diagnosed Date Diverticulitis 05/10/[address] 01/13/2024 Fever 12/09/2023 Ulcerative pancolitis with complication 12/05/19 Assessment & Plan (12/26/2023 11:47 AM PRE BILLING SPECIALIST): Patient is a 63 y.o. female with a history of hypertension, type 2 diabetes, and inflammatory bowel disease who is [facility] for progressive weight loss and nausea in the setting of multiple admissions for diverticulitis complicated by contained sigmoid perforation, scattered liver and spleen abscesses and adnexal mass. She was admitted to [facility] on 11/24 for further workup and ID [...] Patient went to the OR 12/23 with REHAB TECHNICIAN, CRS and urology for ex lap, left colectomy with end colostomy, LIBRA, BSO and ureteral stent placement. Surgery reporting source control archived. Given source control has been achieved, we are planning on 5 days of antibiotics from surgery. On assessment today, patient reports minimal use of her MEDICAL LANGUAGE SPECIALIST and that she typically has abdominal discomfort [...] 11/26/2023 Assessment & Plan (12/25/2023 12:55 PM PRE BILLING SPECIALIST): Near resolution of hepatic and splenic abscesses. No plans for repeat imaging given improvement. Continue antibiotics as described elsewhere. Pulmonary nodule 11/26/2023 Assessment & Plan (12/26/2023 11:38 AM PRE BILLING SPECIALIST): Patient is a 63 y.o. female with a history of hypertension, type 2 diabetes, and inflammatory bowel disease who is admitted from [facility] for progressive weight loss and nausea in the setting of multiple admissions for diverticulitis complicated by contained sigmoid perforation, scattered liver and spleen abscesses and adnexal mass. She was admitted to [facility] on 11/24 for further workup and ID [...] 11/26/2023 Assessment & Plan (12/25/2023 12:55 PM PRE BILLING SPECIALIST): Near resolution of hepatic and splenic abscesses. [...] Encounters Date Type Department Care Team Description 05/04/2024 3:15 PM CDT Office Visit [facility] Surgery [address] [place] [address] Yo Ferreira MD Colostomy in place (HCC) (Primary Dx) 04/15/2024 Documentation [facility] Gastroenterology [address] [facility] [address] 12th [place] [address] [place] [address] Che Gamble, ABHAY Treatment Plan Update (04/12/2024 rov) 04/12/2024 11:00 AM PRE BILLING SPECIALIST Office Visit [facility] Gastroenterology [address] 2[address] [place] [address] Katherine Stephenson NP Severe malnutrition (CMS/HCC) (Primary Dx); Colostomy in place (HCC); Ulcerative pancolitis with complication (HCC) 04/06/2024 Telephone [facility] [address] [place] [address] Carmen Johnson, ESTHER 03/26/2024 Telephone [facility] [address] [place] [address] Jimi Blas, ESTHER 03/19/2024 Telephone [facility] [address] [place] [address] Jimi Blas, RD 02/27/2024 Documentation [facility] [address] [place] [address] 02/25/2024 Documentation [facility] [address] [place] [address] 02/20/2024 Telephone [facility] [address] [place] [address] from Last 3 Months Immunizations Immunization Administration [...] Tobacco: Never Tobacco Cessation:Counseling Given: Not Answered [facility] Utilities Answer Date Recorded In the past 12 months has [employer], gas, oil, or water Fluency threatened to shut off services in your [...] week 11/29/2023 How often do you attend [facility] or orthodoxy services? 1 to 4 times per year 11/29/2023 Do you belong to any clubs o r organizations such as baptist groups, unions, fraternal or athletic groups, or [...] were you homeless or living in a correction (including now)? No 11/29/2023 Personal Safety Answer [...] Sign Reading Time Taken Comments Blood Pressure 116/68 05/04/2024 3:04 PM CDT Pulse 90 05/04/2024 3:04 PM CDT Temperature 36.8 C (98.2 F) 05/04/2024 3:04 PM CDT Respiratory Rate 16 01/22/2024 4:07 PM PRE BILLING SPECIALIST Oxygen Saturation 98% 05/04/2024 3:04 PM CDT Inhaled Oxygen Concentration - - Weight 61.2 kg (135 lb) 05/04/2024 3:04 PM CDT Height 156.2 cm (5' 1.5 ) 05/04/2024 3:04 PM CDT Body Mass Index 25.09 05/04/2024 3:04 PM CDT Plan of Treatment Upcoming Encounters Date Type Department Care Team (Latest Contact Info) Description 07/15/2024 10:00 AM CDT Hospital Encounter [facility] Endoscopy at [facility] [address] [place] [phone] Yo Ferreira MD [address] [facility] [phone] [place] [address] 07/15/2024 10:00 AM CDT - 07/15/2024 10:45 AM CDT Surgery [facility] Endoscopy at [address] [address] Yo Ferreira MD [address] [facility] [phone] [place] [address] COLONOSCOPY THROUGH COLOSTOMY 07/16/2024 Hospital Encounter [facility] Operating Room [address] [place] [id number] Yo Ferreira MD [address] [facility] [phone] [place] [address] Scheduled Procedures Name Priority Associated Diagnoses Date/Ti me COLONOSCOPY Diverticulitis 07/15/2024 10:00 AM CDT COLOSTOMY TAKEDOWN Colostomy in place (HCC) PLACEMENT PREOPERATIVE STENT - URETERAL Colostomy in place (HCC) Health Maintenance Due Date Last Done Comments [...] Diagnosis Comments EGFR Timed 12/28/2023 10:18 PM PRE BILLING SPECIALIST LIPID PANEL STAT 12/04/2023 5:24 PM CDT COLONOSCOPY 11/13/2023 12:20 PM CDT HEMOGLOBIN A1C STAT 11/04/2023 7:56 AM CDT HEPATITIS C ANTIBODY Routine 10/27/2023 9:30 AM CDT History of chronic ulcerative colitis High risk medications (not anticoagulants) long-term use from Last 3 Months or Most Recently Relevant to Health Maintenance Results * eGFR (12/28/2023 10:18 PM PRE BILLING SPECIALIST) eGFR 83 >=60 mL/min/1. 73 m2 Comment: [...] reviewed 2020. Blood 12/28/2023 10:1 8 PM PRE BILLING SPECIALIST 12/28/2023 11:12 PM PRE BILLING SPECIALIST us Yo Ferreira MD LAB BLOOD ORDERABLES Final R esult [facility] Department [place] [address] * (ABNORMAL) Lipid panel (12/04/2023 5:24 PM [...] revised on 2017. Triglycerides 75 <=149 mg/dL [facility] Comment: Interpretive Data Ages < or [...] revised on 2017. HDL 27(L) >=40 mg/dL [facility] Comment: Interpretive Data Ages < or [...] on 2017. LDL, calculated 28 <=129 mg/dL [facility] Comment: Interpretive Data Ages < or [...] 3. Paul Donnelly et al. VAL Cardiol. 2019June 17;5(5):54054. doi: 10.1001/jamacardio.2020.0013 Current Interpretive Data was last revised on 2023. Non-HDL Cholesterol 44 mg/dL [facility] Comment: Interpretive Data Ages < or [...] last revised on 2017. Chol/HDL ratio 3 [facility] Blood 12/04/2023 5:24 PM CDT 12/04/2023 5:34 PM CDT Narrative [facility] - 12/04/2023 7:03 PM CDT This lipid panel was automatically ordered due to a significant change in Troponin. The dietary status of the patient at the collection time should be correlated with the lipid results. us Álvaro Radford MD LAB BLOOD ORDERABLES Final Result [facility] Department [place] [address] * Colonoscopy (11/13/2023 12:20 PM CDT) Anatomical Region Laterality Modality Other Narrative Procedure Note Gildardo Jung MD - 11/13/2023 12:20 PM CDT [facility] Patient Name: Farhana Russo Procedure Date: 11/13/2023 12:20 PM Date of : 1960 Admit Type: Outpatient Age: 63 Gender: Female Attending MD: Gildardo Jung M.D. Room: [facility] ENDOSCOPY ROOM 3 Note Status: Finalized [...] was passed under direct vision.The [facility] [id number] endoscope was introducedthrough the anus with [...] % Estimated Average Glucose 117 mg/dL [facility] Comment: The ADA recommends reporting an estimated [...] LAB BLOOD ORDERABLES F inal Result [facility] Department [place] [address] * Hepatitis C antibody Blood (10/27/2023 9:30 [...] last revised on 2019. Testing performed by: 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/24/2023 12/24/2023 Insurance MEDICARE [facility] HMO/PPO Address: [address] [address] [place] [address] MEDICARE Advance Directives For more information, please contact: [phone] * Full Code (Latest Code Status on File) Date Activated Date Inactivated Comments 11/25/2023 7:02 PM 12/30/2023 10:03 PM * Full Code Date Activated Date Inactivated Comments 11/13/2023 12:01 PM 11/13/2023 6:29 PM * Full Code Date Activated Date Inactivated Comments 11/05/2023 5:00 PM 11/06/2023 7:28 PM * Full Code Date Activated Date Inactivated Comments 10/02/2023 1:03 PM 10/04/2023 6:43 PM Care Teams Central Office Operator Supervisor Relationship Specialty Start Date End Date Kaushal Heath MD [address] [place] [address] PCP - General Internal Medicine 10/30/23 Bigg Delarosa MD [address] [address] Referring Physician Gastroenterology 10/15/23 Jefe Choe MD [address] [facility] [address] [place] [address] Referring Physician Gastroenterology 10/15/23 Melissa Rhodes MD [address] [facility] GYNECOLOGIC ONCOLOGY, [address] [address] Consulting Physician Gynecologic Oncology 10/30/23
--- OUTSIDE RECORDS SUMMARY | 2024-05-11 09:34 | XMS_ITS ---
Author Organization [facility] Address [address] [place] [address] Care Team Providers Care Desktop Publisher Name Role Phone Bigg Delarosa MD Unavailable [phone] Jefe Choe MD Unavailable + Melissa Rhodes MD Unavailable [phone] Kaushal Heath MD Primary Care Provider [phone] Active Problems Problem Noted Date Diagnosed Date Diverticulitis 05/10/[address] 01/13/2024 Fever 12/09/2023 Ulcerative pancolitis with complication 12/05/19 Assessment & Plan (12/26/2023 11:47 AM LOOK OUT TOWER FIRE WATCHER): Patient is a 63 y.o. female with a history of hypertension, type 2 diabetes, and inflammatory bowel disease who is admitted from [facility]ology Clinic for progressive weight loss and nausea in the setting of multiple admissions for diverticulitis complicated by contained sigmoid perforation, scattered liver and spleen abscesses and adnexal mass. She was admitted to [facility] on 11/24 for further workup and ID [...] Patient went to the OR 12/23 with DEHYDRATOR OPERATOR, CRS and urology for ex lap, left colectomy with end colostomy, LIBRA, BSO and ureteral stent placement. Surgery reporting source control archived. Given source control has been achieved, we are planning on 5 days of antibiotics from surgery. On assessment today, patient reports minimal use of her ELECTRONICS INSPECTOR and that she typically has abdominal [...] 11/26/2023 Assessment & Plan (12/25/2023 12:55 PM LOOK OUT TOWER FIRE WATCHER): Near resolution of hepatic and splenic abscesses. No plans for repeat imaging given improvement. Continue antibiotics as described elsewhere. Pulmonary nodule 11/26/2023 Assessment & Plan (12/26/2023 11:38 AM LOOK OUT TOWER FIRE WATCHER): Patient is a 63 y.o. female with a history of hypertension, type 2 diabetes, and inflammatory bowel disease who is admitted from [facility] for progressive weight loss and nausea in the setting of multiple admissions for diverticulitis complicated by contained sigmoid perforation, scattered liver and spleen abscesses and adnexal mass. She was admitted to [facility] on 11/24 for further workup and ID [...] 11/26/2023 Assessment & Plan (12/25/2023 12:55 PM LOOK OUT TOWER FIRE WATCHER): Near resolution of hepatic and splenic abscesses. [...]
--- OUTSIDE RECORDS SUMMARY | 2024-05-11 09:34 | XMS_ITS | Referral Summary ---
Author Organization [facility] Address [address] [place] [address] Care Team Providers Care It Project Coordinator Name Role Phone Bigg Delarosa MD Unavailable [phone] Jefe Choe MD Unavailable + Melissa Rhodes MD Unavailable [phone] Kaushal Heath MD Primary Care Provider [phone] Encounters Date Type Department Care Team Description 05/04/2024 3:15 PM CDT Office Visit [facility] Surgery [facility] Medical Office Building [address] [place] [address] Yo Ferreira MD Colostomy in place (HCC) (Primary Dx) 04/15/2024 Documentation [facility] Gastroenterology [address] [facility] 12th [place] [phone] Che Gamble, RN Treatment Plan Update (04/12/2024 rov) 04/12/2024 11:00 AM BOBCAT OPERATOR Office Visit [facility] Gastroenterology [address] [facility] 2nd Floor [address] [place] [address] Katherine Stephenson NP Severe malnutrition (CMS/HCC) (Primary Dx); Colostomy in place (HCC); Ulcerative pancolitis with complication (HCC) 04/06/2024 Telephone [facility] [address] [place] [address] Carmen Johnson, ESTHER 03/26/2024 Telephone [facility] [address] [place] [address] Jimi Blas, ESTHER 03/19/2024 Telephone [facility] [address] [place] [address] Jimi Blas, ESTHER 02/27/2024 Documentation [facility] [address] [place] [address] Isabell Meehan, ESTHER 02/25/2024 Documentation [facility] [address] [place] [address] Isabell Meehan, ESTHER 02/20/2024 Telephone [facility] [address] [place] [address] Jimi Blas, ESTHER from Last 3 Months Allergies Active Allergy [...] as needed (pain) 12/30/19 24 Active prenat.vits,erica,m rl-cycr-avjxw tablet Take by mouth Active Contour Next [...] to prevent nausea. 1 tablet 05/12/19 25 025 Active neomycin (MYCIFRADIN) 500 mg tablet The [...] as needed for pain 15 tablet 12/30/19 24 025 Discontin ued(Thera py completed ) Active Problems Problem Noted Date Diagnosed Date Diverticulitis 05/10/[address] 01/13/2024 Fever 12/09/2023 Ulcerative pancolitis with complication 12/05/19 Assessment & Plan (12/26/2023 11:47 AM BOBCAT OPERATOR): Patient is a 63 y.o. female with a history of hypertension, type 2 diabetes, and inflammatory bowel disease who is admitted from Gastroenterology Clinic for progressive weight loss and nausea in the setting of multiple admissions for diverticulitis complicated by contained sigmoid perforation, scattered liver and spleen abscesses and adnexal mass. She was admitted to [facility] on 11/24 for further workup [...] Patient went to the OR 12/23 with FISHING ROD ASSEMBLER, CRS and urology for ex lap, left colectomy with end colostomy, LIBRA, BSO and ureteral stent placement. Surgery reporting source control archived. Given source control has been achieved, we are planning on 5 days of antibiotics from surgery. On assessment today, patient reports minimal use of her FEED HOUSE SUPERVISOR and that she typically has abdominal [...] 11/26/2023 Assessment & Plan (12/25/2023 12:55 PM BOBCAT OPERATOR): Near resolution of hepatic and splenic abscesses. No plans for repeat imaging given improvement. Continue antibiotics as described elsewhere. Pulmonary nodule 11/26/2023 Assessment & Plan (12/26/2023 11:38 AM BOBCAT OPERATOR): Patient is a 63 y.o. female with a history of hypertension, type 2 diabetes, and inflammatory bowel disease who is admitted from Gastroenterology Clinic for progressive weight loss and nausea in the setting of multiple admissions for diverticulitis complicated by contained sigmoid perforation, scattered liver and spleen abscesses and adnexal mass. She was admitted to [facility] on 11/24 for further workup [...] colon. Improving hepatic and splenic abscesses. Blast 10/9: negative Serum Crypto antigen 11/25: negative Histo [...] 11/26/2023 Assessment & Plan (12/25/2023 12:55 PM BOBCAT OPERATOR): Near resolution of hepatic and splenic [...] Tobacco: Never Tobacco Cessation:Counseling Given: Not Answered [facility] Utilities Answer Date Recorded In the past 12 months has th e [employer], gas, oil, or water [employer] threatened to shut off services in your [...] How often do you attend chur or lutheran services? 1 to 4 times per year 11/29/2023 Do you belong to any clubs o r organizations such as yazdanism groups, unions, fraternal or athletic groups, or [...] any time in the past 12 m [facility], were you homeless or living in a fci (including now)? No 11/29/2023 Personal Safety Answer [...] CDT Respiratory Rate 16 01/22/2024 4:07 PM BOBCAT OPERATOR Oxygen Saturation 98% 05/04/2024 3:04 PM CDT Inhaled Oxygen Concentration - - Weight 61.2 kg (135 lb) 05/04/2024 3:04 PM CDT Height 156.2 cm (5' 1.5 ) 05/04/2024 3:04 PM CDT Body Mass Index 25.09 05/04/2024 3:04 PM CDT Plan of Treatment Upcoming Encounters Date Type Department Care Team (Latest Contact Info) Description 07/15/2024 10:00 AM CDT Hospital Encounter [facility] Endoscopy at [facility] [address] [place] [address] Yo Ferreira MD [address] [facility] [id number] [place] [address] 07/15/2024 10:00 AM CDT - 07/15/2024 10:45 AM CDT Surgery [facility] Endoscopy at [facility] [address] [place] [address] Yo Ferreira MD [address] [facility] [id number] [place] [address] COLONOSCOPY THROUGH COLOSTOMY 07/16/2024 Hospital Encounter [facility] Operating Room [address] [place] [address] Yo Ferreira MD [address] [facility] [id number] [place], [place] [id number] Scheduled Procedures Name Priority Associated Diagnoses Date/Ti me COLONOSCOPY Diverticulitis 07/15/2024 10:00 AM CDT COLOSTOMY TAKEDOWN Colostomy in place (HCC) PLACEMENT PREOPERATIVE STENT - URETERAL Colostomy in place (HCC) Procedures Procedure Name Priority Date/Time Associated Diagnosis Comments EGFR Timed 12/28/2023 10:18 PM BOBCAT OPERATOR LIPID PANEL STAT 12/04/2023 5:24 PM CDT COLONOSCOPY 11/13/2023 12:20 PM CDT HEMOGLOBIN A1C STAT 11/04/2023 7:56 AM CDT HEPATITIS C ANTIBODY Routine 10/27/2023 9:30 AM CDT History of chronic ulcerative colitis High risk medications (not anticoagulants) long-term use from Last 3 Months or Most Recently Relevant to Health Maintenance Results * eGFR (12/28/2023 10:18 PM BOBCAT OPERATOR) eGFR 83 >=60 mL/min/1. 73 m2 [...] reviewed 2020. Blood 12/28/2023 10:1 8 PM BOBCAT OPERATOR 12/28/2023 11:12 PM BOBCAT OPERATOR us Yo Ferreira MD LAB BLOOD ORDERABLES Final R esult [facility] [place] [address] * (ABNORMAL) Lipid panel (12/04/2023 5:24 PM [...] revised on 2017. Triglycerides 75 <=149 mg/dL [facility] Comment: Interpretive Data Ages < or = [...] revised on 2017. HDL 27(L) >=40 mg/dL [facility] Comment: Interpretive Data Ages < or = [...] on 2017. LDL, calculated 28 <=129 mg/dL [facility] Comment: Interpretive Data Ages < or = [...] Paul Donnelly et al. [facility] Cardiol. 2019June 17;5(5):540-548. doi: 10.1001/[email or web address] Current Interpretive Data was last revised on 2023. Non-HDL Cholesterol 44 mg/dL [facility] Comment: Interpretive Data Ages < or = [...] last revised on 2017. Chol/HDL ratio 3 [facility] Blood 12/04/2023 5:24 PM CDT 12/04/2023 5:34 PM CDT Narrative [facility] - 12/04/2023 7:03 PM CDT This lipid panel was automatically ordered due to a significant change in Troponin. The dietary status of the patient at the collection time should be correlated with the lipid results. us Álvaro Radford MD LAB BLOOD ORDERABLES Final Result [facility] [place] [address] * Colonoscopy (11/13/2023 12:20 PM CDT) Anatomical Region Laterality Modality Other Narrative Procedure Note Gildardo Jung MD - 11/13/2023 12:20 PM CDT [facility] Patient Name: Farhana Russo Procedure Date: 11/13/2023 12:20 PM Date of : 1960 Admit Type: Outpatient Age: 63 Gender: Female Attending MD: Gildardo Jung M.D. Room: [facility] ENDOSCOPY ROOM 3 Note Status: Finalized Procedure: [...] was passed under direct vision.The [facility] [id number] endoscope was introducedthrough the anus with [...] % Estimated Average Glucose 117 mg/dL [facility] Comment: The ADA recommends reporting an estimated [...] ORDERABLES F inal Result [facility] [place] [address] * Hepatitis C antibody Blood (10/27/2023 9:30 [...] last revised on 2019. Testing performed by: [facility], [address] [place] [address]., [address] Blood 10/27/2023 9:30 AM CDT 10/27/2023 12:43 PM CDT Gildardo Jung MD LAB MICROBIOLOGY - GENERAL OR DERABLES Edited Result - Final Performing Organization Address City/[facility] Co de Phone Number GO [facility] [address] [facility] [place] [address] from Last 3 Months or Most Recently Relevant to Health Maintenance Additional Health Concerns Infection Onset Date Last Indicated MDR gram neg/ESBL 12/24/2023 12/24/2023 VRE 12/24/2023 12/24/2023 Insurance MEDICARE [facility] [place] [address] [facility] HMO/PPO Address: [address] [address] [place] [address] MEDICARE Advance Directives For more information, please contact: [phone] * Full Code (Latest Code Status on File) Date Activated Date Inactivated Comments 11/25/2023 7:02 PM 12/30/2023 10:03 PM * Full Code Date Activated Date Inactivated Comments 11/13/2023 12:01 PM 11/13/2023 6:29 PM * Full Code Date Activated Date Inactivated Comments 11/05/2023 5:00 PM 11/06/2023 7:28 PM * Full Code Date Activated Date Inactivated Comments 10/02/2023 1:03 PM 10/04/2023 6:43 PM Care Teams It Project Coordinator Relationship Specialty Start Date End Date Kaushal Heath MD [address] [place] [address] PCP - General Internal Medicine 10/30/23 Bigg Delarosa MD [address] [place] [address] Referring Physician Gastroenterology 10/15/23 Jefe Choe MD [address] [place] [address] Referring Physician Gastroenterology 10/15/23 Melissa Rhodes MD [address] [facility] GYNECOLOGIC ONCOLOGY, [address] [address] Consulting Physician Gynecologic Oncology 10/30/23
== END 2024-05-11 08:53 | disposition home or self-care (01) ==
PROVIDERS: PCP Internal Medicine; Visit Provider Internal Medicine
DX: R31.9 Hematuria, unspecified (principal); R82.90 Unspecified abnormal findings in urine; N20.0 Calculus of kidney
CPT/HCPCS: 74178; Q9967

== ENCOUNTER 2024-05-28 09:25 | Outpatient (RCR) | payer MEDICARE, OTHER, SELFPAY ==
--- NOTE | 2024-05-28 10:35 | OPREHPOC ---
Outpatient Therapy Plan of Care This is a Multidisciplinary Plan of Care that may contain components documented by all disciplines (PT, OT, and ST.) PT Problem 1 PT Problem #1 Knowledge Deficit PT Goal 1 Goal / Goal Update independent and compliant with HEP Target Visit 3 PT Problem 2 PT Problem #2 Pain PT Goal 1 Goal / Goal Update decrease pain at worst by 50% or less in the last week Target Visit 6 PT Goal 1 Goal / Goal Update 145 degrees or better passive R shoulder flex 125 degrees or better passive R shoulder abd 65 degrees or better passive R shoulder ER 55 degrees or better passive R shoulder IR Target Visit 6 PT Goal 2 Goal / Goal Update 145 degrees or better active R shoulder flex PT Problem 4 PT Problem #4 Impaired Strength PT Goal 1 Goal / Goal Update 4+/5 or better R shoulder strength 4+/5 or better R elbow strength Target Visit 6 PT Problem 5 PT Problem #5 Impaired Functional Mobility PT Goal 1 Goal / Goal Update quick dash to display 10% or less functional deficits patient to reach behind head to the shirt collar with the R hand patient to reach behind back to the lumbar spine with the R hand patient to put clothes on over head independent at home Target Visit 6
--- NOTE | 2024-05-28 10:35 | PTOPEVAL1 ---
Assessment and note entered by JT File, PT Evaluation Information Assessment Status Evaluation ICD-10 Condition Codes (PT) Pain in right shoulder M25.511 Onset 05/13/24 Subjective Information patient reports she has been having pain in the R shoulder for about 3 weeks or so. she reports she is unable to lay on her L side due to her colostomy bag, and has been laying more on the R side. she reports she believes this has attributed to her shoulder pain beginning. she reports the shoulder is tight. she reports she does not have pain all the time. she reports working at waist level is pain free, but overhead is painful. she reports she has the most pain when she sleeps. she reports it feels better to move and be working. patient reports she has difficulty with getting dressed, putting on clothes overhead, doing her hair, etc. Reported Pain Level Pain Score 2: Self Report Assessment PT Clinical Summary mrs. amaya presents to skilled PT services for evaluation and treatment of R shoulder pain. she presents today with pain with use/activity, decreased rom, and weakness of the R shoulder. her signs and symptoms indicate patient has an adhesive capsulitis of the R shoulder. continued skilled PT is indicated to improve her objective/ functional deficits and progress towards a return to her prior level functional activity performance and quality of life. Plan of Care Interventions Electrical Stimulation,Hot Pack/Cold Pack,Manual Therapy,Neuro Re-education,Patient/Caregiver Education,Therapeutic Activities,Therapeutic Exercise PT Services Indicated Yes Treatment Frequency and 3x weekly for 6 visits Duration These treatments will address the objective and functional deficits as defined above. The patient will be advanced safely and appropriately in order for the patient to progress towards his/her prior level of function. Additional exercises will be introduced and as well as a comprehensive home exercise program upon discharge, if needed, to ensure carryover of functional gains achieved in the clinic. This treatment plan has been reviewed and agreement upon by the patient.
--- NOTE | 2024-06-02 08:11 | PCPTNOTE ---
Cancelled session. Reports she has a medical test she needs to do.
--- NOTE | 2024-06-03 15:29 | PCPTNOTE ---
Cancelled session. Not feeling well today.
--- NOTE | 2024-06-17 12:17 | OPREHPOC ---
Outpatient Therapy Plan of Care This is a Multidisciplinary Plan of Care that may contain components documented by all disciplines (PT, OT, and ST.) PT Problem 1 PT Problem #1 Knowledge Deficit PT Goal 1 Goal / Goal Update independent and compliant with HEP Target Visit 3 Progress Met PT Problem 2 PT Problem #2 Pain PT Goal 1 Goal / Goal Update decrease pain at worst by 50% or less in the last week Target Visit 6 Progress Met PT Goal 1 Goal / Goal Update 145 degrees or better passive R shoulder flex 125 degrees or better passive R shoulder abd 65 degrees or better passive R shoulder ER 55 degrees or better passive R shoulder IR Target Visit 6 Progress Met PT Goal 2 Goal / Goal Update 145 degrees or better active R shoulder flex Target Visit 9 Progress Not Met PT Problem 4 PT Problem #4 Impaired Strength PT Goal 1 Goal / Goal Update 4+/5 or better R shoulder strength -not met 4+/5 or better R elbow strength -met Target Visit 6 Progress Partially Met PT Problem 5 PT Problem #5 Impaired Functional Mobility PT Goal 1 Goal / Goal Update quick dash to display 10% or less functional deficits -not met patient to reach behind head to the shirt collar with the R hand -met patient to reach behind back to the lumbar spine with the R hand -not met patient to put clothes on over head independent at home -met Target Visit 6 Progress Partially Met
--- NOTE | 2024-06-17 12:18 | PTOPPROG ---
Assessment and note entered by Judith Mcintyre, PT Evaluation Information Assessment Status Progress ICD-10 Condition Codes (PT) Pain in right shoulder M25.511 Onset 05/13/24 Subjective Information Pt reports her shoulder doesn't hurt as much when she rolls onto it at night but overall it still gives her trouble. She states when it really bothers her she will take Tylenol. Overall she feels like her ROM and strength have both improved . She's also been able to get dressed more easily but tends to use her L arm more to assist the R, and she's also been able to work in her garden but pain eventually sets in and she has to stop. She still avoids any overhead movements due to pain. Assessment PT Clinical Summary Mrs. Russo has attended 6 total skilled PT visits addressing L shoulder pain and adhesive capsulitis. Since beginning therapy she has made good improvements in her L shoulder strength and ROM but continues to lack sufficient strength and dynamic stability of the shoulder for functional tasks. She will benefit from continued skilled PT intervention to continue progressing toward goals. Plan of Care Interventions Electrical Stimulation,Hot Pack/Cold Pack,Manual Therapy,Neuro Re-education,Patient/Caregiver Education,Therapeutic Activities,Therapeutic Exercise PT Services Indicated Yes Treatment Frequency and 3x/week for 3 visits Duration These treatments will address the objective and functional deficits as defined above. The patient will be advanced safely and appropriately in order for the patient to progress towards his/her prior level of function. Additional exercises will be introduced and as well as a comprehensive home exercise program upon discharge, if needed, to ensure carryover of functional gains achieved in the clinic. This treatment plan has been reviewed and agreement upon by the patient.
== END 2024-06-17 20:00 | disposition home or self-care (01) ==
LOC: CHSPT 09:25
PROVIDERS: PCP Internal Medicine; Visit Provider Internal Medicine
DX: M75.01 Adhesive capsulitis of right shoulder (principal)
CPT/HCPCS: 97014; 97110; 97112; 97140; 97161; G0283

== ENCOUNTER 2024-06-16 09:58 | Outpatient (CLI) | payer MEDICARE, OTHER, SELFPAY ==
--- NOTE | ~2024-06-16 | DEXA_ITS ---
Bone Density Report Name: DARIUS GARCIAS Age: 64 Sex: Female Ethnicity: White Date of : 1960 Indication: postmenopausal; screening for osteoporosis; height loss; inflammatory bowel disease; Referring Provider: Kaushal Heath Study: Bone densitometry was performed. Exam Date: June 16, 2024 Accession number: [id number] Bone Density: Region BMD T-score Z-score Classification AP Spine(L1-L4) 0.799 -2.3 -0.4 Osteopenia Femoral Neck (Left) 0.666 -1.7 -0.1 Osteopenia Total Hip (Left) 0.866 -0.6 0.7 Normal Femoral Neck (Right) 0.630 -2.0 -0.4 Osteopenia Total Hip (Right) 0.778 -1.3 -0.1 Osteopenia Femoral Neck Mean 0.648 -1.8 -0.2 Osteopenia Total Hip Mean 0.822 -1.0 0.3 Normal World Health Organization criteria for BMD impression classify patients as: Normal (T-score at or above -1.0), Osteopenia (T-score between -1.0 and -2.5), or Osteoporosis (T-score at or below -2.5). 10-year Fracture Risk(1): Major Osteoporotic Fracture 11% Hip Fracture 1.6% Reported Risk Factors: [place] (), Neck BMD=0.630, BMI=25.0 (1) FRAX(R) Version 3.08. Fracture probability calculated for an untreated patient. Fracture probability may be lower if the patient has received treatment. Clinical Information Provided by Patient: Has used the following medications: Vitamin D, multi Has the following medical conditions: Inflammatory bowel diseases Patient maximum height was 62.0 Menopause Age: 48 No regular weight bearing exercise Onset of menses at age 14 Number of children 0 Impression: The patient has low bone mass, based on the Total Spine T-score. Discussion: BONE DENSITY IS LOW AT ONE OR MORE SKELETAL SITES. This patient's lowest T-score is low at one or more skeletal sites. It meets the World Health Organization's (WHO) criteria for ?low bone mass? (T-score between -1.0 and -2.5). The patient's 10-year risk of fracture as calculated by FRAX is less than the threshold where pharmacological therapy is recommended by the National Osteoporosis Foundation (NOF). However, all treatment decisions require clinical judgment and consideration of individual patient factors, including patient preferences, comorbidities, previous drug use, risk factors not captured in the FRAX model (e.g., frailty, falls, vitamin D deficiency, increased bone turnover, interval significant decline in bone density) and possible under or overestimation of fracture risk by FRAX. The patient should follow a healthful lifestyle (good nutrition with adequate calcium and vitamin D, and appropriate weight-bearing exercise). Follow-Up: Consider repeating this study in 2 to 3 years to reassess this patient's status, or sooner if there is some new clinical indication. Reported by: DESIREE on 06/16/2024 10:48:00 AM. Reviewed, dictated and finalized at location A.
--- NOTE | ~2024-06-16 | MM_ITS ---
EXAMINATION: MM screening riya BI w neeta HISTORY: Screening TECHNIQUE: Craniocaudal and mediolateral oblique 3-D tomosynthesis images were obtained and synthetic 2-D images were generated. CAD analysis was submitted and interpreted. COMPARISON: Comparison to multiple prior studies sequentially, with oldest reviewed study dated 02/2015. BREAST PARENCHYMAL COMPOSITION: Not dense: There are scattered areas of fibroglandular density. FINDINGS: There is no evidence of suspicious mass, calcification, or architectural distortion to sugg est malignancy in either breast. There has been no suspicious interval change. IMPRESSION: 1. No mammographic evidence of malignancy. 2. Recommend routine screening mammography in one year. BI-RADS Category 1: Negative Reviewed, dictated and finalized at location A.
[2024-06-16 10:20] LABS: Hematocrit 34.8 % (35.0-42.0); Hemoglobin 11.9 g/dL (11.7-13.8); Mean Corpuscular HGB Conc 34.2 g/dL (32-36); Mean Corpuscular Hemoglobin 30.8 pg (27.0-31.0); Mean Corpuscular Volume 90.2 fL (78.0-102.0); Mean Platelet Volume 8.5 fl (9.2-11.8); Platelet Count Result 165 K/mm3 (150-420); Red Blood Count 3.86 M/mm3 (4.20-5.40); Red Cell Distribution Width 12.4 % (11.6-14.4)
[2024-06-16 10:55] LABS: Blood Urea Nitrogen 38 mg/dL (7-18); Calcium 9.5 mg/dL (8.5-10.1); Chloride 102 mmol/L (98-108); Estimated Glomerular Filt Rate 38; Glucose 112 mg/dL (70-99); Magnesium 1.9 mg/dL (1.8-2.4); Osmolality Calculated 300 mOsm/kg (285-295); Potassium 4.8 mmol/L (3.5-5.1); Sodium 140 mmol/L (136-145)
[2024-06-16 11:01] LABS: Anion Gap 8 mmol/L (4-12); Carbon Dioxide 30 mmol/L (21-32)
--- OUTSIDE RECORDS SUMMARY | 2024-06-16 11:01 | XMS_ITS | Referral Summary ---
Author Organization [facility] Address [address] [place] [address] Care Team Providers Care Snack Stewardess Name Role Phone Bigg Delarosa MD Unavailable [phone] Jefe Choe MD Unavailable + Melissa Rhodes MD Unavailable [phone] Kaushal Heath MD Primary Care Provider [phone] Encounters Date Type Department Care Team Description 06/10/2024 Telephone [facility] - [facility] Urology [address] [facility] Advanced Medicine 11th [place] [address] Colby Curtis MD 05/27/2024 Orders Only [facility] Surgery [facility] [facility] [address] [place] [address] Colby Curtis MD Renal calculus, left (Primary Dx) 05/25/2024 11:40 AM CDT Office Visit [facility] Advanced Medicine ([facility]) - [facility] Urology [address] [facility] [place] Medicine 11th [place] [address] Colby Curtis MD Renal calculus, left; Hematuria, unspecified type 05/14/2024 12:59 PM CDT - 05/14/2024 11:59 PM CDT Hospital Encounter [facility] Radiology [facility] [address] [place] [address] Discharge Disposition: Discharge to home or self care 05/04/2024 3:15 PM CDT Office Visit [facility] Surgery [address] [facility] [address] [place] [address] Yo Ferreira MD Colostomy in place (HCC) (Primary Dx) 04/15/2024 Documentation [facility] Gastroenterology [address] [facility] 12th [place] [address] Che Gamble, ABHAY Treatment Plan Update (04/12/2024 rov) 04/12/2024 11:00 AM TECHNICAL STENOGRAPHER Office Visit [facility] Gastroenterology [address] [facility] 2nd Floor [address] [place] [address] Katherine Stephenson NP Severe malnutrition (CMS/HCC) (Primary Dx); Colostomy in place (HCC); Ulcerative pancolitis with complication (HCC) 04/06/2024 Telephone [facility] Nutrition Counseling [address] [place] [address] 03/26/2024 Telephone [facility] [address] [place] [address] 03/19/2024 Telephone [facility] [address] [place] [address] from Last 3 Months Allergies Active Allergy Reactions Criticality Noted Date Comments Azithromycin Rash Medium 02/17/2007 Medications losartan (COZAAR) 25 mg tablet Take 1 tablet (25 mg total) by mouth daily 07/31/[address] (PROTONIX) 40 mg EC tablet Take 1 tablet (40 mg total) by mouth daily 09/30/19 24 Active cyanocobalamin (Vitamin B-12) 2,500 mcg tablet, sublingual Take 1 tablet (2,500 mcg total) by mouth daily Active magnesium oxide 500 mg capsule Take by mouth daily Active acetaminophen (TYLENOL) 500 mg tablet Take 2 tablets (1,000 mg total) by mouth every 6 (six) hours as needed (pain) 12/30/19 Active prenat.vits,ca l,hwj-dycx-gts ic tablet Take by mouth Active Contour Next EZ Meter misc 01/24/20 24 Active Contour Next Test Strips strip USE TO CHECK BLOOD GLUCOSE TWICE A DAY 03/18/19 25 Active ergocalciferol (VITAMIN D) 50,000 unit capsule Take 1 capsule (50,000 Units total) by mouth once a week 02/23/19 25 Active sodium, potassium & mag sulfates (Suprep Bowel Prep Kit) 17.5-3.13-1.6 gram recon solnIndication s:Bowel Evacuation Drink first half of prep at 6:00 pm the night before procedure. Drink second half of prep 4 hours prior to leaving home for procedure. 354 mL 05/12/19 25 Active neomycin (MYCIFRADIN) 500 mg tablet The day before surgery take neomycin 1000 mg (2 tablets) by mouth at 1 PM, 2 PM, and 10 PM. 6 tablet 05/12/19 25 Active metroNIDAZOLE (FLAGYL) 500 mg tablet The day before surgery take metronidazole (Flagyl) 500 mg by mouth at 1 PM, 2 PM, and 10 PM. 3 tablet 05/12/19 25 Active potassium citrate ER (UROCIT-K) 10 mEq (1,080 mg) CR tablet Take 1 tablet (10 mEq total) by mouth 2 (two) times a day 180 tablet 3 06/11/19 25 026 Active potassium chloride ER 10 mEq CR tablet Take 1 tablet/capsule (10 mEq total) by mouth daily 10/30/19 24 025 Discontin ued(Alter sarah therapy) Active Problems Problem Noted Date Diagnosed Date Diverticulitis 05/10/[address] 01/13/2024 Fever 12/09/2023 Ulcerative pancolitis with complication 12/05/19 Assessment & Plan (12/26/2023 11:47 AM TECHNICAL STENOGRAPHER): Patient is a 63 y.o. female with a history of hypertension, type 2 diabetes, and inflammatory bowel disease who is admitted from [facility]ology [facility] for progressive weight loss and nausea in the setting of multiple admissions for diverticulitis complicated by contained sigmoid perforation, scattered liver and spleen abscesses and adnexal mass. She was admitted to [facility] on 11/24 for further workup and ID [...] Patient went to the OR 12/23 with PIGGYBACK CLERK, CRS and urology for ex lap, left colectomy with end colostomy, LIBRA, BSO and ureteral stent placement. Surgery reporting source control archived. Given source control has been achieved, we are planning on 5 days of antibiotics from surgery. On assessment today, patient reports minimal use of her TELECOM SPECIALIST and that she typically has abdominal [...] 11/26/2023 Assessment & Plan (12/25/2023 12:55 PM TECHNICAL STENOGRAPHER): Near resolution of hepatic and splenic abscesses. No plans for repeat imaging given improvement. Continue antibiotics as described elsewhere. Pulmonary nodule 11/26/2023 Assessment & Plan (12/26/2023 11:38 AM TECHNICAL STENOGRAPHER): Patient is a 63 y.o. female with a history of hypertension, type 2 diabetes, and inflammatory bowel disease who is admitted from Gastroenterology Clinic for progressive weight loss and nausea in the setting of multiple admissions for diverticulitis complicated by contained sigmoid perforation, scattered liver and spleen abscesses and adnexal mass. She was admitted to [facility] on 11/24 for further workup and ID [...] 11/26/2023 Assessment & Plan (12/25/2023 12:55 PM TECHNICAL STENOGRAPHER): Near resolution of hepatic and splenic abscesses. [...] Tobacco: Never Tobacco Cessation:Counseling Given: Not Answered [facility] Utilities Answer Date Recorded In the [...] often do you attend chur ch or scientology services? 1 to 4 times per year 11/29/2023 Do you belong to any clubs o r organizations such as evangelical groups, unions, fraternal or athletic groups, or [...] any time in the past 12 m [facility], were you homeless or living in a care home (including now)? No 11/29/2023 Personal Safety [...] CDT Respiratory Rate 16 01/22/2024 4:07 PM TECHNICAL STENOGRAPHER Oxygen Saturation 98% 05/04/2024 3:04 PM CDT Inhaled Oxygen Concentration - - Weight 61.2 kg (135 lb) 05/04/2024 3:04 PM CDT Height 156.2 cm (5' 1.5 ) 05/04/2024 3:04 PM CDT Body Mass Index 25.09 05/04/2024 3:04 PM CDT Plan of Treatment Upcoming Encounters Date Type Department Care Team (Latest Contact Info) Description 07/15/2024 10:00 AM CDT Hospital Encounter [facility] Endoscopy at [facility] Medicine [address] [place] [address] Yo Ferreira MD [address] [facility] [id number] [place] [address] 07/15/2024 10:00 AM CDT - 07/15/2024 10:30 AM CDT [facility] Endoscopy at [facility] [address] [place] [address] Yo Ferreira MD [address] [id number] [place] [address] COLONOSCOPY THROUGH COLOSTOMY 07/16/2024 8:45 AM CDT [facility] Operating Room [id number] [place] [address] [place] [address] Yo Ferreira MD [address] [id number] [place] [address] 07/16/2024 8:45 AM CDT - 07/16/2024 1:00 PM CDT [facility] Operating Room [address] [place] [address] Yo Ferreira MD [address] [id number] [place] [address] COLOSTOMY TAKEDOWN Scheduled Procedures Name Priority Associated Diagnoses Date/Ti me COLONOSCOPY Diverticulitis 07/15/2024 10:00 AM CDT COLOSTOMY TAKEDOWN Colostomy in place ([facility]) 07/16/2024 8:45 AM CDT PLACEMENT PREOPERATIVE STENT - URETERAL Colostomy in place ([facility]) 07/16/2024 8:45 AM CDT Procedures Procedure Name Priority Date/Time Associated Diagnosis Comments LITHOLINK 24HR URINE PANEL Routine 06/03/2024 7:00 AM CDT Renal calculus, left CT BODY OUTSIDE REFERENCE Routine 05/14/2024 12:59 PM CDT Diagnosis unknown EGFR Timed 12/28/2023 10:18 PM TECHNICAL STENOGRAPHER LIPID PANEL STAT 12/04/2023 5:24 PM CDT COLONOSCOPY 11/13/2023 12:20 PM CDT HEMOGLOBIN A1C STAT 11/04/2023 7:56 AM CDT HEPATITIS C ANTIBODY Routine 10/27/2023 9:30 AM CDT History of chronic ulcerative colitis High risk medications (not anticoagulants) long-term use from Last 3 Months or Most Recently Relevant to Health Maintenance Results * (ABNORMAL) Litholink 24Hr Urine Panel (06/03/2024 7:00 AM CDT) Cystine, Urine, Qualitative Neg Negative [facility] - 01 Urine Volume (Preserved) 2,650 500 - 4,000 mL/24 hr [facility] - 01 Calcium Oxalate Saturation 1.57(L) 6.00 - 10.00 [facility] - 01 Calcium, Urine 39 <200 mg/24 hr [facility] - 01 Oxalate, Urine 28 20 - 40 mg/24 hr [facility] - 01 Citrate, Urine 192(L) >550 mg/24 hr [facility] - 01 Calcium Phosphate Saturation 0.02(L) 0.50 - 2.00 [facility] - 01 pH, 24 hr, Urine 5.453(L) 5.800 - 6.200 [facility] - 01 Uric Acid Saturation 0.70 <1.00 [facility] - 01 Uric Acid, Urine 366 <750 mg/24 hr [facility] - 01 Sodium, Urine 94 50 - 150 mmol/24 hr [facility] - 01 Potassium, Urine 32 20 - 100 mmol/24 hr [facility] - 01 Magnesium, Urine 26(L) 30 - 120 mg/24 hr [facility] - 01 Phosphorus, Urine 457(L) 600 - 1,200 mg/24 hr [facility] - 01 Ammonium, Urine 20 15 - 60 mmol/24 hr [facility] - 01 Chloride, Urine 97 70 - 250 mmol/24 hr [facility] - 01 Sulfate, Urine 21 20 - 80 meq/24 hr [facility] - 01 Urea Nitrogen, Urine 7.76 6.00 - 14.00 g/24 hr [facility] - 01 Protein Catabolic Rate 1.0 0.8 - 1.4 g/kg/24 hr [facility] - 01 Creatinine, Urine 924 Not Applic. mg/24 hr [facility] - 01 Creatinine/Kg Body Weight 15.4 8.7 - 20.3 mg/24 hr/kg [facility] - 01 Calcium/Kg Body Weight 0.7 <4.0 mg/24 hr/kg [facility] - 01 Calcium/Creatin ine Ratio 42(L) 51 - 262 mg/g creat [facility] - 01 Comment Note [facility] - 01 Urine 06/03/2024 7:00 AM CDT 06/08/2024 Narrative [facility] - 06/09/2024 9:10 AM CDT Performed at: [address] [place] [address] [id number] Shingle Catcher: Kelsey Tran PhD, Phone: [phone] us Colby Curtis MD LAB URINE ORDERABLES Final Resul t Performing Organization Address [facility]/ZIP Co de Phone Number LABCO [facility] - 01 * CT Body Outside Reference (05/14/2024 12:59 PM CDT) Impressions [facility] - 05/14/2024 12:59 PM CDT These images are for Reference purposes only and have not been reviewed by [facility] Radiology. There will be no report generated by a [facility] Radiologist. Narrative [facility] - 05/14/2024 12:59 PM CDT EXAMINATION: Images For Reference Purposes Only us Yo Ferreira MD IMG CT PROCEDURES Final Resu lt [facility] * eGFR (12/28/2023 10:18 PM TECHNICAL STENOGRAPHER) eGFR 83 >=60 mL/min/1. 73 m2 Comment: [...] reviewed 2020. Blood 12/28/2023 10:1 8 PM TECHNICAL STENOGRAPHER 12/28/2023 11:12 PM TECHNICAL STENOGRAPHER us Yo Ferreira MD LAB BLOOD ORDERABLES Final R esult [facility] Department [place] [address] * (ABNORMAL) Lipid panel (12/04/2023 5:24 PM [...] on 2017. HDL 27(L) >=40 mg/dL [facility] Comment: Interpretive Data Ages < or [...] 2017. LDL, calculated 28 <=129 mg/dL [facility] Comment: Interpretive Data Ages < or [...] on 2023. Non-HDL Cholesterol 44 mg/dL [facility] Comment: Interpretive Data Ages < or [...] revised on 2017. Chol/HDL ratio 3 [facility] Blood 12/04/2023 5:24 PM CDT 12/04/2023 5:34 PM CDT Narrative [facility] - 12/04/2023 7:03 PM CDT This lipid panel was automatically ordered due to a significant change in Troponin. The dietary status of the patient at the collection time should be correlated with the lipid results. Álvaro Radford MD LAB BLOOD ORDERABLES Final Result [facility] Department [place] [address] * Colonoscopy (11/13/2023 12:20 PM CDT) Anatomical Region Laterality Modality Other Narrative Procedure Note Gildardo Jung MD - 11/13/2023 12:20 PM CDT [facility] END[facility] Patient Name: Farhana Russo Procedure Date: 11/13/2023 12:20 PM Date of : 1960 Admit Type: Outpatient Age: 63 Gender: Female Attending MD: Gildardo Jung M.D. Room: [facility] 3 Note Status: Finalized [...] The scope was passed under direct vision.The [facility] [id number] endoscope was introducedthrough the anus with [...] LAB BLOOD ORDERABLES F inal Result [facility] Department [place] [address] * Hepatitis C antibody Blood (10/27/2023 9:30 [...] last revised on 2019. Testing performed by: [facility], [address] [place] [address]., [id number] Blood 10/27/2023 9:30 AM CDT 10/27/2023 12:43 PM CDT Gildardo Jung MD LAB MICROBIOLOGY - GENERAL OR DERABLES Edited Result - Final [facility] [address] [facility]. 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 12/24/2023 Insurance MEDICARE [facility] MEDICARE Advance Directives For more information, please contact: [phone] * Full Code (Latest Code Status on File) Date Activated Date Inactivated Comments 11/25/2023 7:02 PM 12/30/2023 10:03 PM * Full Code Date Activated Date Inactivated Comments 11/13/2023 12:01 PM 11/13/2023 6:29 PM * Full Code Date Activated Date Inactivated Comments 11/05/2023 5:00 PM 11/06/2023 7:28 PM * Full Code Date Activated Date Inactivated Comments 10/02/2023 1:03 PM 10/04/2023 6:43 PM Care Teams Snack Stewardess Relationship Specialty Start Date End Date Kaushal Heath MD [address] [place] [address] PCP - General Internal Medicine 10/30/23 Bigg Delarosa MD [address] [place] [address] Referring Physician Gastroenterology 10/15/23 Jefe Choe MD [address] [place] [address] Referring Physician Gastroenterology 10/15/23 Melissa Rhodes MD [address] [facility], [address] [address] Consulting Physician Gynecologic Oncology 10/30/23
--- OUTSIDE RECORDS SUMMARY | 2024-06-16 11:01 | XMS_ITS | Clinical Summary ---
Author Organization [facility] Address [facility] [place] [address] Care Team Providers Care Pony Worker Name Role Phone Bigg Delarosa MD Unavailable [phone] Jefe Choe MD Unavailable + Melissa Rhodes MD Unavailable [phone] Kaushal Heath MD Primary Care Provider + [phone] Allergies Active Allergy Reactions Criticality Noted Date [...] hours as needed (pain) 12/30/19 24 Active prenat.vits,ca l,vpt-vuxg-dul ic tablet Take by mouth Active Contour [...] (10 mEq total) by mouth daily 10/30/19 025 Discontin ued(Alter sarah therapy) Active Problems Problem Noted Date Diagnosed Date Diverticulitis 05/10/[address] 01/13/2024 Fever 12/09/2023 Ulcerative pancolitis with complication 12/05/19 Assessment & Plan (12/26/2023 11:47 AM BOTTOM CRANE OPERATOR): Patient is a 63 y.o. female with a history of hypertension, type 2 diabetes, and inflammatory bowel disease who is admitted from [facility]ology [facility] for progressive weight loss and nausea in the setting of multiple admissions for diverticulitis complicated by contained sigmoid perforation, scattered liver and spleen abscesses and adnexal mass. She was admitted to [facility] on 11/24 for further workup and [...] Patient went to the OR 12/23 with FURNITURE MOVER HELPER, CRS and urology for ex lap, left colectomy with end colostomy, LIBRA, BSO and ureteral stent placement. Surgery reporting source control archived. Given source control has been achieved, we are planning on 5 days of antibiotics from surgery. 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 No plans for repeat imaging given improvement. Continue antibiotics as described elsewhere. Pulmonary nodule 11/26/2023 Assessment & Plan (12/26/2023 11:38 AM BOTTOM CRANE OPERATOR): Patient is a 63 y.o. female with a history of hypertension, type 2 diabetes, and inflammatory bowel disease who is admitted from Gastroenterology Clinic for progressive weight loss and nausea in the setting of multiple admissions for diverticulitis complicated by contained sigmoid perforation, scattered liver and spleen abscesses and adnexal mass. She was admitted to [facility] on 11/24 for further workup and [...] 11/26/2023 Assessment & Plan (12/25/2023 12:55 PM BOTTOM CRANE OPERATOR): Near resolution of hepatic and splenic [...] Date Type Department Care Team Description 06/10/[address] [facility] ([facility]) - [facility] Urology [address] [facility] 11th [place] [address] [place] [address] Colby Curtis MD 05/27/[address] [facility] Surgery [address] [facility] [address] [place] [address] Colby Curtis MD Renal calculus, left (Primary Dx) 05/25/2024 11:40 AM CDT Office Visit [facility] ([facility]) - [facility] Urology [address] [facility] 11th [place] [address] [place] [address] Colby Curtis MD Renal calculus, left; Hematuria, unspecified type 05/14/2024 12:59 PM CDT - 05/14/2024 11:59 PM CDT Hospital Encounter [facility] [address] [place] [address] Discharge Disposition: Discharge to home or self care 05/04/2024 3:15 PM CDT Office Visit [facility] Surgery [address] [place] [address] Medical Office Building [address] [place] [phone] Yo Ferreira MD Colostomy in place (HCC) (Primary Dx) 04/15/2024 Documentation [facility] Gastroenterology [address] [facility] 12th [place] [address] [place] [address] Che Gamble, ABHAY Treatment Plan Update (04/12/2024 rov) 04/12/2024 11:00 AM BOTTOM CRANE OPERATOR Office Visit [facility] Gastroenterology [address] [facility] 2nd [address] [place] [address] Katherine Stephenson NP Severe malnutrition (CMS/HCC) (Primary Dx); Colostomy in place (HCC); Ulcerative pancolitis with complication (HCC) 04/06/2024 Telephone [facility] Nutrition Counseling [address] [place] [address] Carmen Johnson, ESTHER 03/26/2024 Telephone [facility] [address] [place] [address] 03/19/2024 Telephone [facility] 1 [place] [id number] Jimi Blas [address] from Last 3 Months [...] Tobacco Cessation:Counseling Given: Not Answered [facility] Utilities Answer Date Recorded In the past 12 months has e electric, gas, oil, or water company [...] week 11/29/2023 How often do you attend [facility] or yazidi services? 1 to 4 times per year 11/29/2023 Do you belong to any clubs o r organizations such as spiritism groups, unions, fraternal or athletic groups, or [...] any time in the past 12 m [facility], were you homeless or living in [...] CDT Respiratory Rate 16 01/22/2024 4:07 PM BOTTOM CRANE OPERATOR Oxygen Saturation 98% 05/04/2024 3:04 PM CDT Inhaled Oxygen Concentration - - Weight 61.2 kg (135 lb) 05/04/2024 3:04 PM CDT Height 156.2 cm (5' 1.5 ) 05/04/2024 3:04 PM CDT Body Mass Index 25.09 05/04/2024 3:04 PM CDT Plan of Treatment Upcoming Encounters Date Type Department Care Team (Latest Contact Info) Description 07/15/2024 10:00 AM CDT Hospital Encounter [facility] Endoscopy at [facility] [address] [place] [address] Yo Ferreira MD [address] [facility] [phone] [place] [address] 07/15/2024 10:00 AM CDT - 07/15/2024 10:30 AM CDT Surgery [facility] [address] [place] [address] Yo Ferreira MD [address] [facility] [phone] [place] [address] COLONOSCOPY THROUGH COLOSTOMY 07/16/2024 8:45 AM CDT Hospital Encounter [facility] Operating Room [address] [address] Yo Ferreira MD [address] [facility] [phone] [place] [address] 07/16/2024 8:45 AM CDT - 07/16/2024 1:00 PM CDT Surgery [facility] Operating Room [address] [place] [address] Yo Ferreira MD [address] [facility] [phone] [place] [address] COLOSTOMY TAKEDOWN Scheduled Procedures Name Priority Associated Diagnoses Date/Ti me COLONOSCOPY Diverticulitis 07/15/2024 10:00 AM CDT COLOSTOMY TAKEDOWN Colostomy in place ([facility]) 07/16/2024 8:45 AM CDT PLACEMENT PREOPERATIVE STENT - URETERAL Colostomy in place ([facility]) 07/16/2024 8:45 AM CDT Health Maintenance Due Date Last Done Comments Albumin Creatinine Ratio, Urine 1960 Breast Cancer Screening-Mammogram 1960 Osteoporosis Screening-Bone Density Scan 1960 Dilated Eye Exam 1960 Foot Exam 1960 Pneumococcal vaccine 65+ (1 of 2 - PCV) 1977 Zoster Vaccine (1 of 2) 2008 Well Visit 65+ 05/09/2023 Covid-19 Vaccine (3 - 2023-2 5 season) 2023 02/29/2020, 02/08/2020 Hemoglobin A1C 05/03/2024 11/04/2023, 10/18, 10/03/2023 Influenza Vaccine (Season Ended) 2024 Depression Screening 11/24/2024 11/25/2023 Lipid Panel 12/03/2024 12/04/2023, 10/27/2023 eGFR 12/27/2024 12/28/2023, 11/0 10/2023, 12/26/2023, Additional history exists Fall Risk Assessment [...] Diagnosis unknown EGFR Timed 12/28/2023 10:18 PM BOTTOM CRANE OPERATOR LIPID PANEL STAT 12/04/2023 5:24 PM [...] - 06/09/2024 9:10 AM CDT Performed at: [address] [place] [id number] [employer] Developer: Kelsey Tran PhD, Phone: [phone] us Colby Curtis MD LAB URINE ORDERABLES Final Resul t Performing Organization Address [facility] Co de Phone Number [facility] - 01 * CT Body Outside Reference (05/14/2024 12:59 PM CDT) Impressions RAD_PACS[facility] - 05/14/2024 12:59 PM CDT These images are for Reference purposes only and have not been reviewed by [facility] Radiology. There will be no report generated by a [facility] Radiologist. Narrative [facility]_P[facility] - 05/14/2024 12:59 PM CDT EXAMINATION: Images For Reference Purposes Only us Yo Ferreira MD IMG CT PROCEDURES Final Resu lt Performing Organization Address City/[facility]/ZIP Co de Phone Number [facility] * eGFR (12/28/2023 10:18 PM BOTTOM CRANE OPERATOR) eGFR 83 >=60 mL/min/1. 73 m2 [...] reviewed 2020. Blood 12/28/2023 10:1 8 PM BOTTOM CRANE OPERATOR 12/28/2023 11:12 PM BOTTOM CRANE OPERATOR us Yo Ferreira MD LAB BLOOD ORDERABLES Final R esult [facility] [address] [facility] Department [place] [address] * (ABNORMAL) Lipid panel (12/04/2023 5:24 PM [...] revised on 2017. HDL 27(L) >=40 mg/dL [facility] Comment: Interpretive Data Ages < or [...] on 2017. LDL, calculated 28 <=129 mg/dL [facility] Comment: Interpretive Data Ages < or [...] revised on 2023. Non-HDL Cholesterol 44 mg/dL [facility] Comment: Interpretive Data Ages < or [...] last revised on 2017. Chol/HDL ratio 3 [facility] Blood 12/04/2023 5:2 4 PM CDT 12/04/2023 5:34 PM CDT Narrative [facility] - 12/04/2023 7:03 PM CDT This lipid panel was automatically ordered due to a significant change in Troponin. The dietary status of the patient at the collection time should be correlated with the lipid results. us Álvaro Radford MD LAB BLOOD ORDERABLES Final Result [facility] Department [place] [address] * Colonoscopy (11/13/2023 12:20 PM CDT) Anatomical Region Laterality Modality Other Narrative Procedure Note Gildardo Jung MD - 11/13/2023 12:20 PM CDT GI ENDOSCOPY [facility] Patient Name: Farhana Russo Procedure Date: 11/13/2023 12:20 PM Date of : 1960 Admit Type: Outpatient Age: 63 Gender: Female Attending MD: Gildardo Jung M.D. Room: [facility] ENDOSCOPY ROOM 3 Note Status: Finalized Procedure: [...] The scope was passed under direct vision.The [facility] [id number] endoscope was introducedthrough the anus with [...] ORDERABLES F inal Result GO [facility] Department [place] [address] * Hepatitis C antibody Blood (10/27/2023 9:30 [...] revised on 2019. Testing performed by: [facility], [address] [place] [address], [place]., [address] Blood 10/27/2023 9:30 AM CDT 10/27/2023 12:43 PM CDT Gildardo Jung MD LAB MICROBIOLOGY - GENERAL OR DERABLES Edited Result - Final [facility] [address] [facility]. 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 12/24/2023 12/24/2023 Insurance MEDICARE [facility] MEDICARE Advance Directives For more information, please contact: [phone] * Full Code (Latest Code Status on File) Date Activated Date Inactivated Comments 11/25/2023 7:02 PM 12/30/2023 10:03 PM * Full Code Date Activated Date Inactivated Comments 11/13/2023 12:01 PM 11/13/2023 6:29 PM * Full Code Date Activated Date Inactivated Comments 11/05/2023 5:00 PM 11/06/2023 7:28 PM * Full Code Date Activated Date Inactivated Comments 10/02/2023 1:03 PM 10/04/2023 6:43 PM Care Teams Pony Worker Relationship Specialty Start Date End Date Kaushal Heath MD [address] [place] [address] PCP - General Internal Medicine 10/30/23 Bigg Delarosa MD [address] [place] [address] Referring Physician Gastroenterology 10/15/23 Jefe Choe MD [address] [facility] [address] [place] [address] Referring Physician Gastroenterology 10/15/23 Melissa Rhodes MD [address] [facility], [address] [address] Consulting Physician Gynecologic Oncology 10/30/23
--- OUTSIDE RECORDS SUMMARY | 2024-06-16 11:01 | XMS_ITS ---
Author Organization [facility] Address [address] [place] [address] Care Team Providers Care Manufacturing Shift Supervisor Name Role Phone Bigg Delarosa MD Unavailable [phone] Jefe Choe MD Unavailable + Melissa Rhodes MD Unavailable [phone] Kaushal Heath MD Primary Care Provider [phone] Active Problems Problem Noted Date Diagnosed Date Diverticulitis 05/10/[address] 01/13/2024 Fever 12/09/2023 Ulcerative pancolitis with complication 12/05/19 Assessment & Plan (12/26/2023 11:47 AM FILM OR TAPE LIBRARIAN): Patient is a 63 y.o. female with a history of hypertension, type 2 diabetes, and inflammatory bowel disease who is admitted from Gastroenterology Clinic for progressive weight loss and nausea in the setting of multiple admissions for diverticulitis complicated by contained sigmoid perforation, scattered liver and spleen abscesses and adnexal mass. She was admitted to [facility] on 11/24 for further workup and [...] Patient went to the OR 12/23 with LOCATOR SPECIALIST, CRS and urology for ex lap, left colectomy with end colostomy, LIBRA, BSO and ureteral stent placement. Surgery reporting source control archived. Given source control has been achieved, we are planning on 5 days of antibiotics from surgery. 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 No plans for repeat imaging given improvement. Continue antibiotics as described elsewhere. Pulmonary nodule 11/26/2023 Assessment & Plan (12/26/2023 11:38 AM FILM OR TAPE LIBRARIAN): Patient is a 63 y.o. female with a history of hypertension, type 2 diabetes, and inflammatory bowel disease who is admitted from Gastroenterology Clinic for progressive weight loss and nausea in the setting of multiple admissions for diverticulitis complicated by contained sigmoid perforation, scattered liver and spleen abscesses and adnexal mass. She was admitted to [facility] on 11/24 for further workup and [...] 11/26/2023 Assessment & Plan (12/25/2023 12:55 PM FILM OR TAPE LIBRARIAN): Near resolution of hepatic and splenic abscesses. [...]
[2024-06-16 11:02] LABS: CRP < 0.5 mg/dL (0.0-0.9)
[2024-06-16 11:18] LABS: Erythrocyte Sedimentation Rate 49 mm/hr (0-20)
[2024-06-19 06:57] LABS: Myeloperoxidase Ab <1.0 AI (<1.0); Proteinase-3 Ab <1.0 AI (<1.0)
[2024-06-19 07:54] LABS: S cerevisiae Ab (IgG) 12.4 U (<=20.0)
[2024-06-19 16:48] LABS: S cerevisiae Ab (IgA) 12.9 U (<=20.0)
== END 2024-06-16 09:59 | disposition home or self-care (01) ==
PROVIDERS: PCP Internal Medicine; Visit Provider Internal Medicine
DX: Z12.31 Encounter for screening mammogram for malignant neoplasm of breast (principal); Z78.0 Asymptomatic menopausal state; I10 Essential (primary) hypertension; K50.90 Crohn's disease, unspecified, without complications; M85.89 Other specified disorders of bone density and structure, multiple sites
CPT/HCPCS: 36415; 77063; 77067; 77080; 80048; 83735; 83993; 85027; 85652; 86036; 86140; 86671

== ENCOUNTER 2024-06-22 07:17 | Outpatient (CLI) | payer MEDICARE, OTHER, SELFPAY ==
--- NOTE | ~2024-06-22 | US_ITS ---
US retroperitoneal comp 06/22/2024 07:42 Procedure: Realtime transabdominal ultrasound of the kidneys and bladder. Indication: Increased creatinine. Comparison: CT dated 05/12/2019 Findings: Renal echotexture is normal bilaterally without hydronephrosis, contour deforming mass. The re are multiple renal stones largest measuring 2.3 x 1 cm. The right kidney measures 9.4 cm and left kidney measures 9.8 cm. Bladder within normal limits. Impression: 1: Left nephrolithiasis, largest stone measuring up to 2.3 cm. No hydronephrosis. Reviewed, dictated and finalized at location A. Impression: 1: Left nephrolithiasis, largest stone measuring up to 2.3 cm. No hydronephrosi s.
--- OUTSIDE RECORDS SUMMARY | 2024-06-22 07:32 | XMS_ITS | Clinical Summary ---
Author Organization [facility] Address [facility] [place] [address] Care Team Providers Care Flight Test Data Acquisition Technician Name Role Phone Bigg Delarosa MD Unavailable [phone] Jefe Choe MD Unavailable + Melissa Rhodes MD Unavailable [phone] Kaushal Heath MD Primary Care Provider [phone] Allergies Active Allergy Reactions Criticality Noted Date [...] as needed (pain) 12/30/19 24 Active prenat.vits,ca l,alc-bxbj-vnq ic tablet Take by mouth Active Contour [...] 12/05/19 Assessment & Plan (12/26/2023 11:47 AM FACULTY ADMINISTRATOR): Patient is a 63 y.o. female with a history of hypertension, type 2 diabetes, and inflammatory bowel disease who is admitted from [facility] for progressive weight loss and nausea in the setting of multiple admissions for diverticulitis complicated by contained sigmoid perforation, scattered liver and spleen abscesses and adnexal mass. She was admitted to [facility] on 11/24 for further workup and ID [...] Patient went to the OR 12/23 with FLIGHT READINESS TECHNICIAN, CRS and urology for ex lap, left colectomy with end colostomy, LIBRA, BSO and ureteral stent placement. Surgery reporting source control archived. Given source control has been achieved, we are planning on 5 days of antibiotics from surgery. On assessment today, patient reports minimal use of her SWITCHER and that she typically has abdominal discomfort [...] 11/26/2023 Assessment & Plan (12/25/2023 12:55 PM FACULTY ADMINISTRATOR): Near resolution of hepatic and splenic abscesses. No plans for repeat imaging given improvement. Continue antibiotics as described elsewhere. Pulmonary nodule 11/26/2023 Assessment & Plan (12/26/2023 11:38 AM FACULTY ADMINISTRATOR): Patient is a 63 y.o. female with a history of hypertension, type 2 diabetes, and inflammatory bowel disease who is admitted from [facility] for progressive weight loss and nausea in the setting of multiple admissions for diverticulitis complicated by contained sigmoid perforation, scattered liver and spleen abscesses and adnexal mass. She was admitted to [facility] on 11/24 for further workup and ID [...] 11/26/2023 Assessment & Plan (12/25/2023 12:55 PM FACULTY ADMINISTRATOR): Near resolution of hepatic and splenic abscesses. [...] Date Type Department Care Team Description 06/10/2024 [facility] - [facility] Urology [address] [facility] 11th [place] [address] [place] [address] Colby Curtis MD 05/27/2024 Orders Only [facility] Surgery [address] [facility] [address] [place] [address] Colby Curtis MD Renal calculus, left (Primary Dx) 05/25/2024 11:40 AM CDT Office Visit [facility] - [facility] Urology [address] [facility] [address] [place] [address] [place] [address] Colby Curtis MD Renal calculus, left; Hematuria, unspecified type 05/14/2024 12:59 PM CDT - 05/14/2024 11:59 PM CDT Hospital Encounter [facility] [address] [place] [address] Discharge Disposition: Discharge to home or self care 05/04/2024 3:15 PM CDT Office Visit [facility] Surgery [address] [place] [address] Medical Office Building [address] [place] [address] Yo Ferreira MD Colostomy in place (HCC) (Primary Dx) 04/15/2024 Documentation [facility] Gastroenterology [address] [facility] 12th [place] [address] [place] [address] Che Gamble, ABHAY Treatment Plan Update (04/12/2024 rov) 04/12/2024 11:00 AM FACULTY ADMINISTRATOR Office Visit [facility] Gastroenterology [address] [facility] 2nd Floor [address] [place] [address] Katherine Stephenson NP Severe malnutrition (CMS/HCC) (Primary Dx); Colostomy in place (HCC); Ulcerative pancolitis with complication (HCC) 04/06/2024 Telephone [facility] Nutrition Counseling [address] [place] [id number] [address] 03/26/2024 Telephone [facility] [address] [place] [id number] Jimi Blas RD from Last 3 Months [...] Tobacco: Never Tobacco Cessation:Counseling Given: Not Answered [facility] Utilities Answer Date Recorded In the [...] often do you attend chur ch or sabianist services? 1 to 4 times per year 11/29/2023 Do you belong to any clubs o r organizations such as pentecostalism groups, unions, fraternal or athletic groups, or [...] CDT Respiratory Rate 16 01/22/2024 4:07 PM FACULTY ADMINISTRATOR Oxygen Saturation 98% 05/04/2024 3:04 PM CDT Inhaled Oxygen Concentration - - Weight 61.2 kg (135 lb) 05/04/2024 3:04 PM CDT Height 156.2 cm (5' 1.5 ) 05/04/2024 3:04 PM CDT Body Mass Index 25.09 05/04/2024 3:04 PM CDT Plan of Treatment Upcoming Encounters Date Type Department Care Team (Latest Contact Info) Description 07/15/2024 10:00 AM CDT Hospital Encounter [facility] Endoscopy at [facility] [address] [place] [address] Yo Ferreira MD [address] [id number] [place] [address] 07/15/2024 10:00 AM CDT - 07/15/2024 10:30 AM CDT Surgery [facility] Endoscopy at [address] [address] Yo Ferreira MD [address] [id number] [place] [address] COLONOSCOPY THROUGH COLOSTOMY 07/16/2024 8:45 AM CDT Hospital Encounter [facility] Operating Room [address] [place] [address] Yo Ferreira MD [address] [id number] [place] [address] 07/16/2024 8:45 AM CDT - 07/16/2024 1:00 PM CDT Surgery [facility] Operating Room [address] [place] [address] Yo Ferreira MD [address] [facility] [id number] [place] [address] COLOSTOMY TAKEDOWN Scheduled Procedures Name Priority Associated Diagnoses Date/Ti me COLONOSCOPY Diverticulitis 07/15/2024 10:00 AM CDT COLOSTOMY TAKEDOWN Colostomy in place (HCC) 07/16/2024 8:45 AM CDT PLACEMENT PREOPERATIVE STENT - URETERAL Colostomy in place (HCC) 07/16/2024 8:45 AM CDT Health Maintenance Due [...] Panel 12/03/2024 12/04/2023, 10/27/2023 eGFR 12/27/2024 12/28/2023, 1110/2023, 12/26/2023, Additional history exists Fall Risk Assessment [...] Diagnosis unknown EGFR Timed 12/28/2023 10:18 PM FACULTY ADMINISTRATOR LIPID PANEL STAT 12/04/2023 5:24 PM CDT [...] - 06/09/2024 9:10 AM CDT Performed at: [address] [id number] Metalworking Specialist: Kelsey Tran PhD, Phone: [phone] us Colby Curtis MD LAB URINE ORDERABLES Final Resul t Performing Organization Address [facility] Co de Phone Number [facility] - 01 * CT Body Outside Reference (05/14/2024 12:59 PM CDT) Impressions RAD_PACS_[facility] - 05/14/2024 12:59 PM CDT These images are for Reference purposes only and have not been reviewed by [facility] Radiology. There will be no report generated by a [facility] Radiologist. Narrative RAD_PACS_[facility] - 05/14/2024 12:59 PM CDT EXAMINATION: Images For Reference Purposes Only us Yo Ferreira MD IMG CT PROCEDURES Final Resu lt Performing Organization Address City/[facility]/ZIP Co de Phone Number RAD_PACS_[facility] * eGFR (12/28/2023 10:18 PM FACULTY ADMINISTRATOR) eGFR 83 >=60 mL/min/1. 73 m2 Comment: [...] reviewed 2020. Blood 12/28/2023 10:1 8 PM FACULTY ADMINISTRATOR 12/28/2023 11:12 PM FACULTY ADMINISTRATOR us Yo Ferreira MD LAB BLOOD ORDERABLES Final R esult [facility] Department [place] [address] * (ABNORMAL) Lipid panel (12/04/2023 5:24 PM [...] on 2017. HDL 27(L) >=40 mg/dL GO [facility] Comment: Interpretive Data Ages < or = [...] 2017. LDL, calculated 28 <=129 mg/dL GO [facility] Comment: Interpretive Data Ages < or = [...] on 2023. Non-HDL Cholesterol 44 mg/dL GO [facility] Comment: Interpretive Data Ages < or = [...] last revised on 2017. Chol/HDL ratio 3 [facility] Blood 12/04/2023 5:24 PM CDT 12/04/2023 5:34 PM CDT Narrative [facility] - 12/04/2023 7:03 PM CDT This lipid panel was automatically ordered due to a significant change in Troponin. The dietary status of the patient at the collection time should be correlated with the lipid results. us Álvaro Radford MD LAB BLOOD ORDERABLES Final Result [facility] One [facility] Department [place] [address] * Colonoscopy (11/13/2023 12:20 PM CDT) Anatomical [...] under direct vision.The [facility] [id number] endoscope was introducedthrough the anus with [...] Hemoglobin A1c (11/04/2023 7:56 AM CDT) Pathologist [facility] Hgb A1C 5.7(H) 4.0 - 5.6 % [...] ORDERABLES F inal Result GO ROBERT [facility] Department [place] [address] * Hepatitis C antibody Blood (10/27/2023 9:30 [...] last revised on 2019. Testing performed by: [facility], [address] [place] [address]., [address] Blood 10/27/2023 9:30 AM CDT 10/27/2023 12:43 PM CDT us Gildardo Jung MD LAB MICROBIOLOGY - GENERAL OR DERABLES Edited Result - Final Performing Organization Address City/State/ZIP Co pr Phone Number [facility] [address] [facility]. Department [place] [address] from Last 3 Months or Most Recently Relevant to Health Maintenance Additional Health Concerns Infection Onset Date Last Indicated MDR gram neg/ESBL 12/24/2023 12/24/2023 Insurance MEDICARE [facility] MEDICARE [facility] Advance Directives For more information, please contact: [phone] * Full Code (Latest Code Status on File) Date Activated Date Inactivated Comments 11/25/2023 7:02 PM 12/30/2023 10:03 PM * Full Code Date Activated Date Inactivated Comments 11/13/2023 12:01 PM 11/13/2023 6:29 PM * Full Code Date Activated Date Inactivated Comments 11/05/2023 5:00 PM 11/06/2023 7:28 PM * Full Code Date Activated Date Inactivated Comments 10/02/2023 1:03 PM 10/04/2023 6:43 PM Care Teams Flight Test Data Acquisition Technician Relationship Specialty Start Date End Date Kaushal Heath MD [address] [place] [address] PCP - General Internal Medicine 10/30/23 Bigg Delarosa MD [address] [facility] [place] [address] [address] Referring Physician Gastroenterology 10/15/23 Jefe Choe MD [address] [facility] [address] [place] [address] [place] [address] Referring Physician Gastroenterology 10/15/23 Melissa Rhodes MD [address] [facility] GYNECOLOGIC ONCOLOGY[address] [address] Consulting Physician Gynecologic Oncology 10/30/23
--- OUTSIDE RECORDS SUMMARY | 2024-06-22 07:32 | XMS_ITS ---
Author Organization [facility] Address [address] [place] [address] Care Team Providers Care Name Plate Stamping Machine Operator Name Role Phone Bigg Delarosa MD Unavailable [phone] Jefe Choe MD Unavailable + Melissa Rhodes MD Unavailable [phone] Kaushal Heath MD Primary Care Provider [phone] Active Problems Problem Noted Date Diagnosed Date Diverticulitis 05/10/[address] 01/13/2024 Fever 12/09/2023 Ulcerative pancolitis with complication 12/05/19 Assessment & Plan (12/26/2023 11:47 AM MEDICAL OBSERVER): Patient is a 63 y.o. female with a history of hypertension, type 2 diabetes, and inflammatory bowel disease who is admitted from [facility]astroenterology Clinic for progressive weight loss and nausea in the setting of multiple admissions for diverticulitis complicated by contained sigmoid perforation, scattered liver and spleen abscesses and adnexal mass. She was admitted to [facility] on 11/24 for further workup and ID [...] Patient went to the OR 12/23 with AUTO ELECTRICIAN, CRS and urology for ex lap, left colectomy with end colostomy, LIBRA, BSO and ureteral stent placement. Surgery reporting source control archived. Given source control has been achieved, we are planning on 5 days of antibiotics from surgery. On assessment today, patient reports minimal use of her STOCK UNLOADER and that she typically has abdominal discomfort [...] 11/26/2023 Assessment & Plan (12/25/2023 12:55 PM MEDICAL OBSERVER): Near resolution of hepatic and splenic abscesses. No plans for repeat imaging given improvement. Continue antibiotics as described elsewhere. Pulmonary nodule 11/26/2023 Assessment & Plan (12/26/2023 11:38 AM MEDICAL OBSERVER): Patient is a 63 y.o. female with a history of hypertension, type 2 diabetes, and inflammatory bowel disease who is admitted from [facility]ology Clinic for progressive weight loss and nausea in the setting of multiple admissions for diverticulitis complicated by contained sigmoid perforation, scattered liver and spleen abscesses and adnexal mass. She was admitted to [facility] on 11/24 for further workup and ID [...] 11/26/2023 Assessment & Plan (12/25/2023 12:55 PM MEDICAL OBSERVER): Near resolution of hepatic and splenic abscesses. [...]
--- OUTSIDE RECORDS SUMMARY | 2024-06-22 07:32 | XMS_ITS | Referral Summary ---
Author Organization [facility] Address [address] [place] [address] Care Team Providers Care Exchange Underwriting Consultant Name Role Phone Bigg Delarosa MD Unavailable [phone] Jefe Choe MD Unavailable + Melissa Rhodes MD Unavailable [phone] Kaushal Heath MD Primary Care Provider Encounters Date Type Department Care Team Description 06/10/2024 Telephone [facility] - [facility] Urology [address] [facility] Advanced Medicine 11th [place] [address] Colby Curtis MD 05/27/2024 Orders Only [facility] Surgery [facility] [address] [place] [address] Colby Curtis MD Renal calculus, left (Primary Dx) 05/25/2024 11:40 AM CDT Office Visit [facility] Advanced [facility] ([facility]) - [facility] Urology [address] [facility] Medicine 11th [place] [address] Colby Curtis MD Renal calculus, left; Hematuria, unspecified type 05/14/2024 12:59 PM CDT - 05/14/2024 11:59 PM CDT Hospital Encounter [facility] Radiology [facility] [address] [place] [address] Discharge Disposition: Discharge to home or self care 05/04/2024 3:15 PM CDT Office Visit [facility] [address] [facility] [address] [place] [address] Yo Ferreira MD Colostomy in place (HCC) (Primary Dx) 04/15/2024 Documentation [facility] Gastroenterology [address] [facility] 12th [place] [address] Che Gamble RN Treatment Plan Update (04/12/2024 rov) 04/12/2024 11:00 AM HOME HEALTH PHYSICAL THERAPIST Office Visit [facility] Gastroenterology [address] [facility] 2nd Floor [address] [place] [address] Katherine Stephenson NP Severe malnutrition (CMS/HCC) (Primary Dx); Colostomy in place (HCC); Ulcerative pancolitis with complication (HCC) 04/06/2024 Telephone [facility] Nutrition Counseling [address] [place] [address] 03/26/2024 Telephone [facility] Nutrition Counseling [address] [place] [address] from Last 3 Months [...] as needed (pain) 12/30/19 24 Active prenat.vits,ca l,woz-etpf-fbb ic tablet Take by mouth Active Contour [...] 12/05/19 Assessment & Plan (12/26/2023 11:47 AM HOME HEALTH PHYSICAL THERAPIST): Patient is a 63 y.o. female with a history of hypertension, type 2 diabetes, and inflammatory bowel disease who is admitted from Gastroenterology Clinic for progressive weight loss and nausea in the setting of multiple admissions for diverticulitis complicated by contained sigmoid perforation, scattered liver and spleen abscesses and adnexal mass. She was admitted to [facility] on 11/24 for further workup and ID [...] Patient went to the OR 12/23 with OVEN OPERATOR AUTOMATIC, CRS and urology for ex lap, left colectomy with end colostomy, LIBRA, BSO and ureteral stent placement. Surgery reporting source control archived. Given source control has been achieved, we are planning on 5 days of antibiotics from surgery. On assessment today, patient reports minimal use of her STAVE PLANER TENDER and that she typically has abdominal discomfort [...] 11/26/2023 Assessment & Plan (12/25/2023 12:55 PM HOME HEALTH PHYSICAL THERAPIST): Near resolution of hepatic and splenic abscesses. No plans for repeat imaging given improvement. Continue antibiotics as described elsewhere. Pulmonary nodule 11/26/2023 Assessment & Plan (12/26/2023 11:38 AM HOME HEALTH PHYSICAL THERAPIST): Patient is a 63 y.o. female with a history of hypertension, type 2 diabetes, and inflammatory bowel disease who is admitted from Gastroenterology Clinic for progressive weight loss and nausea in the setting of multiple admissions for diverticulitis complicated by contained sigmoid perforation, scattered liver and spleen abscesses and adnexal mass. She was admitted to [facility] on 11/24 for further workup and ID [...] 11/26/2023 Assessment & Plan (12/25/2023 12:55 PM HOME HEALTH PHYSICAL THERAPIST): Near resolution of hepatic and splenic abscesses. [...] Tobacco: Never Tobacco Cessation:Counseling Given: Not Answered [facility] Utilities Answer Date Recorded In the [...] often do you attend chur ch or lutheran services? 1 to 4 times [...] time in the past 12 m [facility], were you homeless or living in a half-way (including now)? No 11/29/2023 Personal Safety Answer [...] CDT Respiratory Rate 16 01/22/2024 4:07 PM HOME HEALTH PHYSICAL THERAPIST Oxygen Saturation 98% 05/04/2024 3:04 PM CDT Inhaled Oxygen Concentration - - Weight 61.2 kg (135 lb) 05/04/2024 3:04 PM CDT Height 156.2 cm (5' 1.5 ) 05/04/2024 3:04 PM CDT Body Mass Index 25.09 05/04/2024 3:04 PM CDT Plan of Treatment Upcoming Encounters Date Type Department Care Team (Latest Contact Info) Description 07/15/2024 10:00 AM CDT Hospital Encounter [facility] [address] [place] [address] Yo Ferreira MD [address] [phone] [place] [address] 07/15/2024 10:00 AM CDT - 07/15/2024 10:30 AM CDT [facility] Endoscopy at [facility] [address] [facility] [place] [address] Yo Ferreira MD [address] [facility] [phone] [place] [address] COLONOSCOPY THROUGH COLOSTOMY 07/16/2024 8:45 AM CDT [facility] Operating Room [address] [place] [address] Yo Ferreira MD [address] [facility] [phone] [place] [address] 07/16/2024 8:45 AM CDT - 07/16/2024 1:00 PM CDT [facility] Operating Room [address] [place] [address] Yo Ferreira MD [address] [facility] [place] [phone] [place] [address] COLOSTOMY TAKEDOWN Scheduled Procedures Name Priority Associated Diagnoses Date/Ti me COLONOSCOPY Diverticulitis 07/15/2024 10:00 AM CDT COLOSTOMY TAKEDOWN Colostomy in place ([facility]) 07/16/2024 8:45 AM CDT PLACEMENT PREOPERATIVE STENT - URETERAL Colostomy in place ([facility]) 07/16/2024 8:45 AM CDT Procedures Procedure Name Priority Date/Time Associated Diagnosis Comments LITHOLINK 24HR URINE PANEL Routine 06/03/2024 7:00 AM CDT Renal calculus, left CT BODY OUTSIDE REFERENCE Routine 05/14/2024 12:59 PM CDT Diagnosis unknown EGFR Timed 12/28/2023 10:18 PM HOME HEALTH PHYSICAL THERAPIST LIPID PANEL STAT 12/04/2023 5:24 PM CDT [...] - 06/09/2024 9:10 AM CDT Performed at: [address] [id number] Counselor Camp: Kelsey Tran PhD, Phone: [phone] us Colby Curtis MD LAB URINE ORDERABLES Final Resul t Performing Organization Address City/[facility] Co de Phone Number [facility] - 01 * CT Body Outside Reference (05/14/2024 12:59 PM CDT) Impressions [facility] - 05/14/2024 12:59 PM CDT These images are for Reference purposes only and have not been reviewed by [facility] Radiology. There will be no report generated by a [facility] Radiologist. Narrative [facility] - 05/14/2024 12:59 PM CDT EXAMINATION: Images For Reference Purposes Only us Yo Ferreira MD IMG CT PROCEDURES Final Resu lt [facility] * eGFR (12/28/2023 10:18 PM HOME HEALTH PHYSICAL THERAPIST) eGFR 83 >=60 mL/min/1. 73 m2 Comment: [...] reviewed 2020. Blood 12/28/2023 10:1 8 PM HOME HEALTH PHYSICAL THERAPIST 12/28/2023 11:12 PM HOME HEALTH PHYSICAL THERAPIST us Yo Ferreira MD LAB BLOOD ORDERABLES Final R esult [facility] One [facility] Department [place] [address] * (ABNORMAL) Lipid panel (12/04/2023 5:24 PM [...] on 2017. HDL 27(L) >=40 mg/dL [facility] Comment: Interpretive Data Ages < or = [...] 2017. LDL, calculated 28 <=129 mg/dL [facility] Comment: Interpretive Data Ages < or = [...] on 2023. Non-HDL Cholesterol 44 mg/dL [facility] Comment: Interpretive Data Ages < or = [...] revised on 2017. Chol/HDL ratio 3 [facility] Blood 12/04/2023 5:24 PM CDT 12/04/2023 5:34 PM CDT Narrative [facility] - 12/04/2023 7:03 PM CDT This lipid panel was automatically ordered due to a significant change in Troponin. The dietary status of the patient at the collection time should be correlated with the lipid results. us Álvaro Radford MD LAB BLOOD ORDERABLES Final Result [facility] One [facility] Department [place] [address] * Colonoscopy (11/13/2023 12:20 PM CDT) Anatomical Region Laterality Modality Other Narrative Procedure Note Gildardo Jung MD - 11/13/2023 12:20 PM CDT GI ENDOSCOPY [facility] Patient Name: Farhana Russo Procedure Date: 11/13/2023 12:20 PM Date of : 1960 Admit Type: Outpatient Age: 63 Gender: Female Attending MD: Gildardo Jung M.D. Room: [facility] ENDOSCOPY ROOM 3 Note Status: [...] The scope was passed under direct vision.The [facility] [id number] endoscope was introducedthrough the anus with [...] MD LAB BLOOD ORDERABLES F inal Result [facility] One [facility] Department [place] [address] * Hepatitis C antibody Blood (10/27/2023 9:30 [...] last revised on 2019. Testing performed by: [facility], [address] [place] [address]., [address] Blood 10/27/2023 9:30 AM CDT 10/27/2023 12:43 PM CDT Gildardo Jung MD LAB MICROBIOLOGY - GENERAL OR DERABLES Edited Result - Final Performing Organization Address City/State/ZIP Co ri Phone Number [facility] [address] [facility]. [place] [address] from Last 3 Months or Most Recently Relevant to Health Maintenance Additional Health Concerns Infection Onset Date Last Indicated MDR gram neg/ESBL 12/24/2023 12/24/2023 [place] [address] MEDICARE [facility] MEDICARE [facility] Advance Directives For more information, please contact: [phone] * Full Code (Latest Code Status on File) Date Activated Date Inactivated Comments 11/25/2023 7:02 PM 12/30/2023 10:03 PM * Full Code Date Activated Date Inactivated Comments 11/13/2023 12:01 PM 11/13/2023 6:29 PM * Full Code Date Activated Date Inactivated Comments 11/05/2023 5:00 PM 11/06/2023 7:28 PM * Full Code Date Activated Date Inactivated Comments 10/02/2023 1:03 PM 10/04/2023 6:43 PM Care Teams Exchange Underwriting Consultant Relationship Specialty Start Date End Date Kaushal Heath MD [address] [place] [address] PCP - General Internal Medicine 10/30/23 Bigg Delarosa MD [address] [facility] [address] [address] Referring Physician Gastroenterology 10/15/23 Jefe Choe MD [address] [facility] [address] [place] [address] [place] [address] Referring Physician Gastroenterology 10/15/23 Melissa Rhodes MD [address] [facility] GYNECOLOGIC ONCOLOGY[address] [address] Consulting Physician Gynecologic Oncology 10/30/23
== END 2024-06-22 07:18 | disposition home or self-care (01) ==
LOC: CHSIMG 07:21
PROVIDERS: PCP Internal Medicine; Visit Provider Internal Medicine
DX: R94.4 Abnormal results of kidney function studies (principal); N20.0 Calculus of kidney
CPT/HCPCS: 76770

== ENCOUNTER 2024-06-24 13:44 | Outpatient (CLI) | payer MEDICARE, OTHER, SELFPAY ==
--- OUTSIDE RECORDS SUMMARY | 2024-06-24 13:49 | XMS_ITS | Clinical Summary ---
Author Organization [facility] Address Count includes the [facility] [place] [address] Care Team Providers Care Manager Finance Name Role Phone Bigg Delarosa MD Unavailable [phone] Jefe Choe MD Unavailable + Melissa Rhodes MD Unavailable [phone] Kaushal Heath MD Primary Care Provider + [phone] Allergies Active Allergy Reactions Criticality Noted Date [...] as needed (pain) 12/30/19 24 Active prenat.vits,ca l,pnm-vcrt-ogw ic tablet Take by mouth Active Contour [...] 12/05/19 Assessment & Plan (12/26/2023 11:47 AM SUPERVISOR CURING ROOM): Patient is a 63 y.o. female with a history of hypertension, type 2 diabetes, and inflammatory bowel disease who is admitted from Gastroenterology Clinic for progressive weight loss and nausea in the setting of multiple admissions for diverticulitis complicated by contained sigmoid perforation, scattered liver and spleen abscesses and adnexal mass. She was admitted to [facility] on 11/24 for further [...] Patient went to the OR 12/23 with CATALOG SPECIALIST, CRS and urology for ex lap, left colectomy with end colostomy, LIBRA, BSO and ureteral stent placement. Surgery reporting source control archived. Given source control has been achieved, we are planning on 5 days of antibiotics from surgery. On assessment today, patient reports minimal use of her BACKHAUL DRIVER and that she typically has abdominal discomfort [...] 11/26/2023 Assessment & Plan (12/25/2023 12:55 PM SUPERVISOR CURING ROOM): Near resolution of hepatic and splenic abscesses. No plans for repeat imaging given improvement. Continue antibiotics as described elsewhere. Pulmonary nodule 11/26/2023 Assessment & Plan (12/26/2023 11:38 AM SUPERVISOR CURING ROOM): Patient is a 63 y.o. female with a history of hypertension, type 2 diabetes, and inflammatory bowel disease who is admitted from Gastroenterology Clinic for progressive weight loss and nausea in the setting of multiple admissions for diverticulitis complicated by contained sigmoid perforation, scattered liver and spleen abscesses and adnexal mass. She was admitted to [facility] on 11/24 for further [...] 11/26/2023 Assessment & Plan (12/25/2023 12:55 PM SUPERVISOR CURING ROOM): Near resolution of hepatic and splenic abscesses. [...] Date Type Department Care Team Description 06/10/2024 [facility] Urology [address] [facility] 11th [place] [address] [place] [address] Colby Curtis MD 05/27/2024 Orders Only [facility] Surgery [address] [facility] [address] [place] [address] Colby Curtis MD Renal calculus, left (Primary Dx) 05/25/2024 11:40 AM CDT Office Visit [facility] Advanced [facility] Urology [address] [facility] 11th [place] [address] [place] [address] Colby Curtis MD Renal calculus, left; Hematuria, unspecified type 05/14/2024 12:59 PM CDT - 05/14/2024 11:59 PM CDT Hospital Encounter [facility] Radiology [facility] [address] [place] [address] Discharge Disposition: Discharge to home or self care 05/04/2024 3:15 PM CDT Office Visit [facility] Surgery [address] [place] [address] Medical Office Building 4 [address] [place] [address] Yo Ferreira MD Colostomy in place (HCC) (Primary Dx) 04/15/[address] [facility] Gastroenterology [address] [facility] 12th [place] [address] [place] [address] Che Gamble, ABHAY Treatment Plan Update (04/12/2024 rov) 04/12/2024 11:00 AM SUPERVISOR CURING ROOM Office Visit [facility] Gastroenterology [address] [facility] 2nd Floor [address] [place] [address] Katherine Stephenson NP Severe malnutrition (CMS/HCC) (Primary Dx); Colostomy in place (HCC); Ulcerative pancolitis with complication (HCC) 04/06/2024 Telephone [facility] Nutrition Counseling 1 [place] [address] from Last 3 Months Immunizations Immunization [...] Never Tobacco Cessation:Counseling Given: Not Answered [facility] Utilities Answer Date Recorded In the past 12 months has th e [employer], [employer], oil, or water [employer] threatened to shut off services in your [...] 11/29/2023 How often do you attend [facility] or pentecostal services? 1 to 4 times per year 11/29/2023 Do you belong to any clubs o r organizations such as gnosticism groups, unions, fraternal or athletic groups, or [...] any time in the past 12 m [facility], were you homeless or living in a [...] CDT Respiratory Rate 16 01/22/2024 4:07 PM SUPERVISOR CURING ROOM Oxygen Saturation 98% 05/04/2024 3:04 PM CDT Inhaled Oxygen Concentration - - Weight 61.2 kg (135 lb) 05/04/2024 3:04 PM CDT Height 156.2 cm (5' 1.5 ) 05/04/2024 3:04 PM CDT Body Mass Index 25.09 05/04/2024 3:04 PM CDT Plan of Treatment Upcoming Encounters Date Type Department Care Team (Latest Contact Info) Description 07/15/2024 10:00 AM CDT Hospital Encounter [facility] Endoscopy at [facility] [address] [place] [address] Yo Ferreira MD [address] [facility] [phone] [place], [place] [id number] 07/15/2024 10:00 AM CDT - 07/15/2024 10:30 AM CDT Surgery [facility] Endoscopy at [address] [address] Yo Ferreira MD [address] [id number] [place], [place] [id number] COLONOSCOPY THROUGH COLOSTOMY 07/16/2024 8:45 AM CDT Hospital Encounter [facility] Operating Room [address] [place] [address] Yo Ferreira MD [address] [id number] [place] [address] 07/16/2024 8:45 AM CDT - 07/16/2024 1:00 PM CDT Surgery [facility] Operating Room [address] [place] [address] Yo Ferreira MD [address] [facility] [phone] [place], [place] [address] COLOSTOMY TAKEDOWN Scheduled Procedures Name Priority Associated Diagnoses Date/Ti mi COLONOSCOPY Diverticulitis 07/15/2024 10:00 AM CDT COLOSTOMY TAKEDOWN Col[facility] in place ([facility]) 07/16/2024 8:45 AM CDT PLACEMENT PREOPERATIVE [...] Diagnosis unknown EGFR Timed 12/28/2023 10:18 PM SUPERVISOR CURING ROOM LIPID PANEL STAT 12/04/2023 5:24 PM CDT [...] - 06/09/2024 9:10 AM CDT Performed at: - [facility] [address] [id number] Director Nicu: Kelsey Tran PhD, Phone: [phone] us Colby Curtis MD LAB URINE ORDERABLES Final Resul t Performing Organization Address [facility] de Phone Number [facility] - * CT Body Outside Reference (05/14/2024 12:59 PM CDT) Impressions [facility] - 05/14/2024 12:59 PM CDT These images are for Reference purposes only and have not been reviewed by [facility] Radiology. There will be no report generated by a [facility] Radiologist. Narrative [facility] - 05/14/2024 12:59 PM CDT EXAMINATION: Images For Reference Purposes Only us Yo Ferreira MD IMG CT PROCEDURES Final Resu lt Performing Organization Address [facility] Co de Phone Number [facility] * eGFR (12/28/2023 10:18 PM SUPERVISOR CURING ROOM) eGFR 83 >=60 mL/min/1. 73 m2 Comment: [...] reviewed 2020. Blood 12/28/2023 10:1 8 PM SUPERVISOR CURING ROOM 12/28/2023 11:12 PM SUPERVISOR CURING ROOM us Yo Ferreira MD LAB BLOOD ORDERABLES Final R esult [facility] Department [place] [address] * (ABNORMAL) Lipid panel (12/04/2023 5:24 PM [...] revised on 2017. HDL 27(L) >=40 mg/dL [facility] Comment: Interpretive Data Ages < [...] on 2017. LDL, calculated 28 <=129 mg/dL [facility] Comment: Interpretive Data Ages [...] revised on 2023. Non-HDL Cholesterol 44 mg/dL [facility] Comment: Interpretive Data Ages [...] last revised on 2017. Chol/HDL ratio 3 [facility] Blood 12/04/2023 5:24 PM CDT 12/04/2023 5:34 PM CDT Narrative [facility] - 12/04/2023 7:03 PM CDT This lipid panel was automatically ordered due to a significant change in Troponin. The dietary status of the patient at the collection time should be correlated with the lipid results. us Álvaro Radford MD LAB BLOOD ORDERABLES Final Result [facility] Department [place] [address] * Colonoscopy (11/13/2023 12:20 PM CDT) Anatomical Region Laterality Modality Other Narrative Procedure Note Gildardo Jung MD - 11/13/2023 12:20 PM CDT GI ENDOSCOPY [facility] Patient Name: Farhana Russo Procedure Date: 11/13/2023 12:20 PM Date of : 1960 Admit Type: Outpatient Age: 63 Gender: Female Attending MD: Gildardo Jung M.D. Room: [facility] ENDOSCOPY ROOM 3 Note Status: Finalized [...] scope was passed under direct vision.The [facility] [id number] endoscope was introducedthrough the anus with [...] MD LAB BLOOD ORDERABLES F inal Result [facility] Department of Laboratories [place], [place] [id number] * Hepatitis C antibody Blood (10/27/2023 9:30 [...] last revised on 2019. Testing performed by: [facility], [facility], [place]., [address] Blood 10/27/2023 9:30 AM CDT 10/27/2023 12:43 PM CDT us Gildardo Jung MD LAB MICROBIOLOGY - GENERAL OR DERABLES Edited Result - Final [facility] [id number] [facility]. [place] [address] from Last 3 Months or Most Recently Relevant to Health Maintenance Additional Health Concerns Infection Onset Date Last Indicated MDR gram neg/ESBL 12/24/2023 12/24/2023 [place] [address] MEDICARE [facility] MEDICARE [facility] Advance Directives For more information, please contact: [phone] * Full Code (Latest Code Status on File) Date Activated Date Inactivated Comments 11/25/2023 7:02 PM 12/30/2023 10:03 PM * Full Code Date Activated Date Inactivated Comments 11/13/2023 12:01 PM 11/13/2023 6:29 PM * Full Code Date Activated Date Inactivated Comments 11/05/2023 5:00 PM 11/06/2023 7:28 PM * Full Code Date Activated Date Inactivated Comments 10/02/2023 1:03 PM 10/04/2023 6:43 PM Care Teams Manager Finance Relationship Specialty Start Date End Date Kaushal Heath MD [address] [place] [address] PCP - General Internal Medicine 10/30/23 Bigg Delarosa MD [address] [facility] [address] [place] [address] Referring Physician Gastroenterology 10/15/23 Jefe Choe MD [address] [facility] [address] [facility] 204 [place] [address] Referring Physician Gastroenterology 10/15/23 Melissa Rhodes MD [address] [facility] GYNECOLOGIC ONCOLOGY, [address] [address] Consulting Physician Gynecologic Oncology 10/30/23
--- OUTSIDE RECORDS SUMMARY | 2024-06-24 13:49 | XMS_ITS ---
Author Organization [facility] Address [address] [place] [address] Care Team Providers Care Microeconomics Professor Name Role Phone Bigg Delarosa MD Unavailable [phone] Jefe Choe MD Unavailable + Melissa Rhodes MD Unavailable [phone] Kaushal Heath MD Primary Care Provider [phone] Active Problems Problem Noted Date Diagnosed Date Diverticulitis 05/10/[address] 01/13/2024 Fever 12/09/2023 Ulcerative pancolitis with complication 12/05/19 Assessment & Plan (12/26/2023 11:47 AM SAP BOBJ DEVELOPER): Patient is a 63 y.o. female with a history of hypertension, type 2 diabetes, and inflammatory bowel disease who is admitted from [facility] for progressive weight loss and nausea in the setting of multiple admissions for diverticulitis complicated by contained sigmoid perforation, scattered liver and spleen abscesses and adnexal mass. She was admitted to [facility] on 11/24 for further workup and [...] Patient went to the OR 12/23 with COMMODITY LOAN CLERK, CRS and urology for ex lap, left colectomy with end colostomy, LIBRA, BSO and ureteral stent placement. Surgery reporting source control archived. Given source control has been achieved, we are planning on 5 days of antibiotics from surgery. On assessment today, patient reports minimal use of her DEMONSTRATOR ELECTRIC GAS APPLIANCES and that she typically has abdominal discomfort [...] 11/26/2023 Assessment & Plan (12/25/2023 12:55 PM SAP BOBJ DEVELOPER): Near resolution of hepatic and splenic abscesses. No plans for repeat imaging given improvement. Continue antibiotics as described elsewhere. Pulmonary nodule 11/26/2023 Assessment & Plan (12/26/2023 11:38 AM SAP BOBJ DEVELOPER): Patient is a 63 y.o. female with a history of hypertension, type 2 diabetes, and inflammatory bowel disease who is admitted from [facility] Clinic for progressive weight loss and nausea in the setting of multiple admissions for diverticulitis complicated by contained sigmoid perforation, scattered liver and spleen abscesses and adnexal mass. She was admitted to [facility] on 11/24 for further workup and [...] 11/26/2023 Assessment & Plan (12/25/2023 12:55 PM SAP BOBJ DEVELOPER): Near resolution of hepatic and splenic abscesses. [...]
--- OUTSIDE RECORDS SUMMARY | 2024-06-24 13:49 | XMS_ITS | Referral Summary ---
Author Organization [facility] Address [address] [place] [address] Care Team Providers Care Specialty Cook Name Role Phone Bigg Delarosa MD Unavailable [phone] Jefe Choe MD Unavailable + Melissa Rhodes MD Unavailable [phone] Kaushal Heath MD Primary Care Provider [phone] Encounters Date Type Department Care Team Description 06/10/2024 Telephone [facility] ([facility]) - [facility] Urology [address] [place] [address] Colby Curtis MD 05/27/2024 Orders Only [facility] Surgery [facility] [facility] [address] [place] [address] Colby Curtis MD Renal calculus, left (Primary Dx) 05/25/2024 11:40 AM CDT Office Visit [facility] ([facility]) - [facility] Urology [address] [facility] 11th [place] [address] Colby Curtis MD Renal calculus, left; Hematuria, unspecified type 05/14/2024 12:59 PM CDT - 05/14/2024 11:59 PM CDT Hospital Encounter [facility] [address] [place] [address] Discharge Disposition: Discharge to home or self care 05/04/2024 3:15 PM CDT Office Visit [facility] Surgery [address] [facility] [address] [place] [phone] Yo Ferreira MD Colostomy in place (HCC) (Primary Dx) 04/15/2024 Documentation [facility] Gastroenterology [address] [facility] 12th [place] [phone] Che Gamble RN Treatment Plan Update (04/12/2024 rov) 04/12/2024 11:00 AM FIELD SOFTWARE ENGINEER Office Visit [facility] Gastroenterology [address] [facility] 2nd Floor [address] [place] [address] Katherine Stephenson NP Severe malnutrition (CMS/HCC) (Primary Dx); Colostomy in place (HCC); Ulcerative pancolitis with complication (HCC) 04/06/2024 Telephone [facility] Nutrition Counseling [address] [place] [address] from Last 3 Months Allergies Active [...] as needed (pain) 12/30/19 24 Active prenat.vits,ca l,idz-mdkv-wle ic tablet Take by mouth Active Contour [...] 12/05/19 Assessment & Plan (12/26/2023 11:47 AM FIELD SOFTWARE ENGINEER): Patient is a 63 y.o. female with a history of hypertension, type 2 diabetes, and inflammatory bowel disease who is admitted from [facility] for progressive weight loss and nausea in the setting of multiple admissions for diverticulitis complicated by contained sigmoid perforation, scattered liver and spleen abscesses and adnexal mass. She was admitted to [facility] on 11/24 for further workup [...] Patient went to the OR 12/23 with STONECUTTER HAND, CRS and urology for ex lap, left colectomy with end colostomy, LIBRA, BSO and ureteral stent placement. Surgery reporting source control archived. Given source control has been achieved, we are planning on 5 days of antibiotics from surgery. On assessment today, patient reports minimal use of her CONSERVATION OR HERITAGE ARCHITECT and that she typically has abdominal discomfort [...] 11/26/2023 Assessment & Plan (12/25/2023 12:55 PM FIELD SOFTWARE ENGINEER): Near resolution of hepatic and splenic abscesses. No plans for repeat imaging given improvement. Continue antibiotics as described elsewhere. Pulmonary nodule 11/26/2023 Assessment & Plan (12/26/2023 11:38 AM FIELD SOFTWARE ENGINEER): Patient is a 63 y.o. female with a history of hypertension, type 2 diabetes, and inflammatory bowel disease who is admitted from [facility]ology Clinic for progressive weight loss and nausea in the setting of multiple admissions for diverticulitis complicated by contained sigmoid perforation, scattered liver and spleen abscesses and adnexal mass. She was admitted to [facility] on 11/24 for further workup [...] 11/26/2023 Assessment & Plan (12/25/2023 12:55 PM FIELD SOFTWARE ENGINEER): Near resolution of hepatic and splenic abscesses. [...] Tobacco Cessation:Counseling Given: Not Answered [facility] Utilities Answer Date Recorded In the past 12 months has [employer], oil, or water [employer] threatened to shut off services in your [...] often do you attend chur ch or cheondoism services? 1 to 4 times per year 11/29/2023 Do you belong to any clubs o r organizations such as worship groups, unions, fraternal or athletic groups, or [...] any time in the past 12 m [facility], were you homeless or living in [...] CDT Respiratory Rate 16 01/22/2024 4:07 PM FIELD SOFTWARE ENGINEER Oxygen Saturation 98% 05/04/2024 3:04 PM CDT Inhaled Oxygen Concentration - - Weight 61.2 kg (135 lb) 05/04/2024 3:04 PM CDT Height 156.2 cm (5' 1.5 ) 05/04/2024 3:04 PM CDT Body Mass Index 25.09 05/04/2024 3:04 PM CDT Plan of Treatment Upcoming Encounters Date Type Department Care Team (Latest Contact Info) Description 07/15/2024 10:00 AM CDT Hospital Encounter [facility] Endoscopy at [address] [address] Yo Ferreira MD [address] [phone] [place] [address] 07/15/2024 10:00 AM CDT - 07/15/2024 10:30 AM CDT Surgery [facility] Endoscopy at [address] [address] Yo Ferreira MD [address] [facility] [phone] [place] [address] COLONOSCOPY THROUGH COLOSTOMY 07/16/2024 8:45 AM CDT Hospital [facility] Operating Room [address] [place] [address] Yo Ferreira MD [address] [facility] [phone] [place] [address] 07/16/2024 8:45 AM CDT - 07/16/2024 1:00 PM CDT Surgery [facility] Operating Room [address] [place] [address] Yo Ferreira MD [address] [facility] [phone] [place] [address] COLOSTOMY TAKEDOWN Scheduled Procedures Name Priority Associated Diagnoses Date/Ti me COLONOSCOPY Diverticulitis 07/15/2024 10:00 AM CDT COLOSTOMY TAKEDOWN Colostomy in place ([facility]) 07/16/2024 8:45 AM CDT PLACEMENT PREOPERATIVE STENT - URETERAL Colostomy in place ([facility]) 07/16/2024 8:45 AM CDT Procedures Procedure Name Priority Date/Time Associated Diagnosis Comments LITHOLINK 24HR URINE PANEL Routine 06/03/2024 7:00 AM CDT Renal calculus, left CT BODY OUTSIDE REFERENCE Routine 05/14/2024 12:59 PM CDT Diagnosis unknown EGFR Timed 12/28/2023 10:18 PM FIELD SOFTWARE ENGINEER LIPID PANEL STAT 12/04/2023 5:24 PM CDT [...] - 06/09/2024 9:10 AM CDT Performed at: [facility] [address] [id number] Electrical And Radio Mechanic: Kelsey Tran PhD, Phone: [phone] Colby Curtis MD LAB URINE ORDERABLES Final Resul t Performing Organization Address [facility] de Phone Number [facility] - * CT Body Outside Reference (05/14/2024 12:59 PM CDT) Impressions [facility] - 05/14/2024 12:59 PM CDT These images are for Reference purposes only and have not been reviewed by [facility]iology. There will be no report generated by a [facility] Radiologist. Narrative [facility] - 05/14/2024 12:59 PM CDT EXAMINATION: Images For Reference Purposes Only us Yo Ferreira MD IMG CT PROCEDURES Final Resu lt Performing Organization Address [facility] Co de Phone Number [facility] * eGFR (12/28/2023 10:18 PM FIELD SOFTWARE ENGINEER) eGFR 83 >=60 mL/min/1. 73 m2 Comment: [...] reviewed 2020. Blood 12/28/2023 10:1 8 PM FIELD SOFTWARE ENGINEER 12/28/2023 11:12 PM FIELD SOFTWARE ENGINEER us Yo Ferreira MD LAB BLOOD ORDERABLES Final R esult [facility] [place] [address] * (ABNORMAL) Lipid panel (12/04/2023 5:24 PM [...] on 2017. Triglycerides 75 <=149 mg/dL [facility] Comment: Interpretive Data Ages [...] on 2017. HDL 27(L) >=40 mg/dL [facility] Comment: Interpretive Data Ages [...] 2017. LDL, calculated 28 <=129 mg/dL [facility] Comment: Interpretive Data Ages [...] on 2023. Non-HDL Cholesterol 44 mg/dL [facility] Comment: Interpretive Data Ages [...] last revised on 2017. Chol/HDL ratio 3 [facility] Blood 12/04/2023 5:24 PM CDT 12/04/2023 5:34 PM CDT Narrative [facility] - 12/04/2023 7:03 PM CDT This lipid panel was automatically ordered due to a significant change in Troponin. The dietary status of the patient at the collection time should be correlated with the lipid results. us Álvaro Radford MD LAB BLOOD ORDERABLES Final Result [facility] [place] [address] * Colonoscopy (11/13/2023 12:20 PM CDT) Anatomical Region Laterality Modality Other Narrative Procedure Note Gildardo Jung MD - 11/13/2023 12:20 PM CDT [facility] ENDOSCOPY [facility] Patient Name: Farhana Russo Procedure Date: 11/13/2023 12:20 PM Date of : 1960 Admit Type: Outpatient Age: 63 Gender: Female Attending MD: Gildardo Jung M.D. Room: [facility] ENDOSCOPY ROOM 3 Note Status: [...] scope was passed under direct vision.The [facility] [id number] endoscope was introducedthrough the anus with [...] MD LAB BLOOD ORDERABLES F inal Result [facility] Department of Laboratories [place], [place] [id number] * Hepatitis C antibody Blood (10/27/2023 9:30 [...] last revised on 2019. Testing performed by: [facility], [facility] [facility], [place]., [address] Blood 10/27/2023 9:30 AM CDT 10/27/2023 12:43 PM CDT us Gildardo Jung MD LAB MICROBIOLOGY - GENERAL OR DERABLES Edited Result - Final GO [facility] [id number] [facility]. [place] [address] from Last 3 Months or Most Recently Relevant to Health Maintenance Additional Health Concerns Infection Onset Date Last Indicated MDR gram neg/ESBL 12/24/2023 12/24/2023 [place] [address] MEDICARE [facility] MEDICARE [facility] Advance Directives For more information, please contact: [phone] * Full Code (Latest Code Status on File) Date Activated Date Inactivated Comments 11/25/2023 7:02 PM 12/30/2023 10:03 PM * Full Code Date Activated Date Inactivated Comments 11/13/2023 12:01 PM 11/13/2023 6:29 PM * Full Code Date Activated Date Inactivated Comments 11/05/2023 5:00 PM 11/06/2023 7:28 PM * Full Code Date Activated Date Inactivated Comments 10/02/2023 1:03 PM 10/04/2023 6:43 PM Care Teams Specialty Cook Relationship Specialty Start Date End Date Kaushal Heath MD [address] [place] [address] PCP - General Internal Medicine 10/30/23 Bigg Dealrosa MD [address] [facility] [address] [place] [address] Referring Physician Gastroenterology 10/15/23 Jefe Choe MD [address] [facility] [address] [place] [address] Referring Physician Gastroenterology 10/15/23 Melissa Rhodes MD [address] [facility] GYNECOLOGIC ONCOLOGY, [address] [address] Consulting Physician Gynecologic Oncology 10/30/23
[2024-06-24 16:40] LABS: Anion Gap 5 mmol/L (4-12); Blood Urea Nitrogen 29 mg/dL (7-17); Carbon Dioxide 28 mmol/L (22-30); Chloride 106 mmol/L (98-107); Estimated Glomerular Filt Rate 42; Glucose 128 mg/dL (65-110); Osmolality Calculated 295 mOsm/kg (285-295); Potassium 4.6 mmol/L (3.4-5.0); Sodium 139 mmol/L (137-145)
== END 2024-06-24 13:45 | disposition home or self-care (01) ==
PROVIDERS: PCP Internal Medicine; Visit Provider Internal Medicine
DX: E86.0 Dehydration (principal)
CPT/HCPCS: 36415; 80048

== ENCOUNTER 2024-09-02 08:00 | Outpatient (CLI) | payer MEDICARE, SELFPAY ==
--- OUTSIDE RECORDS SUMMARY | 2024-09-02 08:04 | XMS_ITS | Clinical Summary ---
Author Organization [facility] Address [address] [place] [address] Care Team Providers Care Claims Account Specialist Name Role Phone Bigg Delarosa MD Unavailable [phone] Jefe Choe MD Unavailable + Melissa Rhodes MD Unavailable [phone] Kaushal Heath MD Primary Care Provider [phone] Allergies Active Allergy Reactions Criticality Noted Date Comments Azithromycin Rash Medium 02/17/2007 Medications losartan (COZAAR) 25 mg tabletIndicatio ns:hypertension Take 1 tablet (25 mg total) by mouth every morning [address] (PROTONIX) 40 mg EC tabletIndicatio ns:Treatment of Non-Bleeding Gastric Disorder Take 1 tablet (40 mg total) by mouth every morning 4 Active cyanocobalamin (Vitamin B-12) 2,500 mcg tablet, sublingualIndic ations:Preventi on of Vitamin B12 Deficiency Take 1 tablet (2,500 mcg total) by mouth every morning Active prenat.vits,erica ,rxx-eebn-dzaer tabletIndicatio ns:supplement Take 1 tablet by mouth every morning Active ergocalciferol (VITAMIN D) 50,000 unit capsuleIndicati ons:Vitamin D Deficiency Take 1 capsule (50,000 Units total) by mouth once a week 5 Active potassium citrate ER (UROCIT-K) 10 mEq (1,080 mg) CR tablet Take 1 tablet (10 mEq total) by mouth 2 (two) times a day 180 tablet 3 5 06/11/19 Active acetaminophen 500 mg capsuleIndicati ons:Pain Take 2 capsules (1,000 mg total) by mouth every 6 (six) hours 5 Active oxyCODONE (ROXICODONE) 5 mg immediate release tabletIndicatio ns:Pain Take 1 tablet (5 mg total) by mouth every 6 (six) hours as needed for pain 5 tablet 5 Active Active Problems Problem Noted Date Diagnosed Date Ileostomy present 07/19/2024 Pyelonephritis 07/19/2024 Ureteral stent present 07/19/2024 Staghorn calculus 07/16/2024 Diverticulitis 05/10/2024 Fever 12/09/2023 Ulcerative pancolitis with complication 12/05/19 Assessment & Plan (12/26/2023 11:47 AM PHARMACY SERVICES REPRESENTATIVE): Patient is a 63 y.o. female with a history of hypertension, type 2 diabetes, and inflammatory bowel disease who is admitted from [facility] for progressive weight loss and nausea in the setting of multiple admissions for diverticulitis complicated by contained sigmoid perforation, scattered liver and spleen abscesses and adnexal mass. She was admitted to [facility] on 11/24 for further workup and [...] Patient went to the OR 12/23 with DIAGNOSTIC MEDICAL SONOGRAPHER, CRS and urology for ex lap, left colectomy with end colostomy, LIBRA, BSO and ureteral stent placement. Surgery reporting source control archived. Given source control has been achieved, we are planning on 5 days of antibiotics from surgery. 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 No plans for repeat imaging given improvement. Continue antibiotics as described elsewhere. Pulmonary nodule 11/26/2023 Assessment & Plan (12/26/2023 11:38 AM PHARMACY SERVICES REPRESENTATIVE): Patient is a 63 y.o. female with a history of hypertension, type 2 diabetes, and inflammatory bowel disease who is admitted from [facility] Clinic for progressive weight loss and nausea in the setting of multiple admissions for diverticulitis complicated by contained sigmoid perforation, scattered liver and spleen abscesses and adnexal mass. She was admitted to [facility] on 11/24 for further workup and [...] 11/26/2023 Assessment & Plan (12/25/2023 12:55 PM PHARMACY SERVICES REPRESENTATIVE): Near resolution of hepatic and splenic abscesses. No plans for repeat imaging given improvement. Continue antibiotics as described elsewhere. 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 Hypertension 10/20/2023 Type II diabetes mellitus 10/20/2023 Diverticulitis of intestine 10/20/2023 Resolved Problems Problem Noted Date Diagnosed Date Resolved Date Colostomy in place 01/13/2024 Moderate protein-calorie malnutrition 10/03/2023 11/25/2023 Abdominal pain 10/02/2023 10/20/2023 Encounters Date Type Department Care Team Description 08/17/2024 1:45 PM CDT Office Visit [facility] Surgery [address] [place] [address] Medical Office Building [address] [place] [address] Yo Ferreira MD Ileostomy present (HCC) (Primary Dx) 07/21/2024 Telephone [facility] Surgery [address] [place] [address] Medical Office Building [address] [place] [phone] Mel May RN 07/16/2024 7:17 AM CDT Anesthesia Event [facility] [address] [place] [address] Bharathi Doran MD Khodamoradi, Shahrdad, MD 07/16/2024 7:15 AM CDT - 07/16/2024 11:30 AM CDT Surgery [facility] [address] [place] [address] Yo Ferreira MD COLOSTOMY TAKEDOWN 07/16/2024 5:20 AM CDT - 07/20/2024 11:39 AM CDT Hospital Encounter [facility] [address] [address] [place] [address] Yo Ferreira MD Staghorn calculus (Primary Dx); Colostomy in place (HCC); Diverticulitis Discharge Disposition: Discharge to home or self care 07/15/2024 10:36 AM CDT - 07/15/2024 11:06 AM CDT Surgery [facility] Endoscopy at [address] [address] Yo Ferreira MD COLONOSCOPY THROUGH COLOSTOMY 07/15/2024 10:33 AM CDT Anesthesia Event [facility] Endoscopy at [address] [phone] Brian Aldana MD 07/15/2024 7:53 AM CDT - 07/15/2024 11:59 PM CDT Hospital Encounter [facility] Radiology at [address] [address] Hepatic abscess Discharge Disposition: Discharge to home or self care 07/15/2024 7:44 AM CDT - 07/15/2024 11:39 AM CDT Hospital Encounter [facility] Endoscopy at [address] [phone] Yo Ferreira MD Discharge Disposition: Discharge to home or self care 07/15/2024 Telephone [facility] Surgery [address] [place] [address] 2nd Floor [address] [place] [address] Wilma Vega [facility] Surgery Confirmation 07/08/2024 Telephone [facility] Surgery [address] [place] [address] 2nd Floor [address] [place] [address] Wilma Vega, A Colonoscopy 07/08/2024 Telephone [facility] Gastroenterology [address] [facility] Medicine 12th [place] [address] [place] [phone] Branden Katieosvaldo Doll, RMA 07/07/2024 Orders Only [facility] Surgery [address] [place] [address] Medical Office Building [address] [place] [phone] Yo Ferreira MD 07/07/2024 Telephone [facility] Surgery [address] [facility] 2nd Floor [address] [place] [address] Marlyn Dunn, RMA Colonoscopy 07/06/2024 Orders Only [facility] Surgery [address] [place] [address] Medical Office Building [address] [place] [phone] Yo Ferreira MD 07/02/2024 12:30 PM CDT Pre-Admission Testing [facility] for Preoperative Assessment [facility] ([facility]) [address] [place] [address] Preoperative testing (Primary Dx); Colostomy in place (HCC) 06/28/2024 Telephone [facility] Gastroenterology [address] [facility] Medicine 12th [place] [address] [place] [address] Che Gamble, scout sniper Results 06/16/2024 Orders Only [facility] GASTROENTEROLOGY Scanning, Provider 06/10/2024 Telephone [facility] ([facility]) - [facility] Urology [address] [facility] 11th [place] [address] [place] [phone] Colby Curtis MD from Last 3 Months Immunizations Immunization Administration Dates Next Due Tdap 10/27/2020,12/29/2019 Surgical History Surgery Date Site/Laterality Comments TUBAL LIGATION CHOLECYSTECTOMY 08/18/2023 - 09/17/2023 COLONOSCOPY 02/17/2021 - 02/16/2022 LEFT COLECTOMY 12/24/2023 WITH END COLOSTOMY TOTAL ABDOMINAL HYSTERECTOMY W/ BILATERAL SALPINGOOPHORECTOMY 12/24/2023 EXPLORATORY LAPAROTOMY 07/16/2024 Exploratory laparotomy with takedown of colostomy and creation of Villar's colorectal anastomosis. Diverting loop ileostomy ILEOSTOMY 07/16/2024 Diverting Loop Ileostomy Medical History Medical History Date Comments Hypertension Diabetes mellitus (HCC) Adrenal mass Diverticulitis Kidney stone Type 2 diabetes mellitus (HCC) Colostomy in place (HCC) 01/13/2024 Family History Medical History Relation Name Comments Emphysema Father Diabetes Mother Anesthesia problems Neg Hx Malig Hypertension Neg Hx Malig Hyperthermia Neg Hx Pseudochol deficiency Neg Hx Relation Name Status Comments Father Mother Social History Tobacco Use Types Packs/Day Years Used Date Smoking Tobacco: Never Passive Smoke Exposure: Never Smokeless Tobacco: Never Tobacco Cessation:Counseling Given: Not Answered [facility] Utilities Answer Date Recorded In the past 12 months has [employer], gas, oil, or water [employer] threatened to shut off services in your home? No 07/19/2024 Social Connection and Isolat ion Panel [NHANES] Answer Date Recorded In a typical week, how many times do you talk on the phone with family, friends, or neighbors? More than three times a week 07/19/2024 How often do you get togethe r with friends or relatives? More than three times a week 07/19/2024 How often do you attend chur ch or denominational services? 1 to 4 times per year 07/19/2024 Do you belong to any clubs o r organizations such as rastafari groups, unions, fraternal or athletic groups, or school groups? No 07/19/2024 How often do you attend meet ings of the clubs or organizations you belong to? Never 07/19/2024 Are you , , di vorced, , never , or living with a partner? 07/19/2024 AUDIT-C Answer Date Recorded Q1: How often do you have a drink containing alcohol? Never 08/17/2024 Q2: How many drinks containi ng alcohol do you have on a typical day when you are drinking? Patient does not drink Q3: How often do you have si x or more drinks on one occasion? Never 08/17/2024 Overall Financial Resource Strain (CARDIA) Answe r Date Recorded How hard is it for you to pa y for the very basics like food, housing, medical care, and heating? Not hard at all 07/19/2024 PHQ-2 Answer Date Recorded PHQ-2 Total Score 0 11/29/2023 Hunger Vital Sign Answer Date Recorded Within the past 12 months, y ou worried that your food would run out before you got the money to buy more. Never true 07/20/19 25 Within the past 12 months, t he food you bought just didn't last and you didn't have money to get more. Never true 07/19/2024 PRAPARE - Transportation Answer Date Re corded In the past 12 months, has l ack of transportation kept you from medical appointments or from getting medications? No 03/2024 In the past 12 months, has l ack of transportation kept you from meetings, work, or from getting things needed for daily living? No 07/19/2024 Housing Stability Vital Sign Answer Robin e Recorded In the last 12 months, was t here a time when you were not able to pay the mortgage or rent on time? No 07/19/2024 In the past 12 months, how m any times have you moved where you were living? 0 07/19/2024 At any time in the past 12 m [facility], were you homeless or living in a residential (including now)? No 07/19/2024 Personal Safety Answer Date Recorded Have you ever been in or are you currently in a harmful physical or emotional relationship or is someone making you feel afraid or unsafe? Denies 07/16/2024 Comments No Sex and Gender Information Value [...] Sign Reading Time Taken Comments Blood Pressure 117/69 08/17/2024 1:36 PM CDT Pulse 86 08/17/2024 1:36 PM CDT Temperature 36.7 C (98 F) 07/20/2024 7:39 AM CDT Respiratory Rate 16 07/20/2024 7:39 AM CDT Oxygen Saturation 100% 08/17/2024 1:36 PM CDT Inhaled Oxygen Concentration - - Weight 61.2 kg (135 lb) 08/17/2024 1:36 PM CDT Height 154.9 cm (5' 1) 08/17/2024 1:36 PM CDT Body Mass Index 25.51 08/17/2024 1:36 PM CDT Plan of Treatment Health Maintenance Due Date [...] A1C 05/03/2024 11/04/2023, 10/18, 10/03/2023 Influenza Vaccine (#1) 2024 Depression Screening 11/24/2024 11/25/2023 Lipid Panel 12/03/2024 12/04/2023, 10/27/2023 eGFR 07/18/2025 07/18/2024, 06/19, 07/16/2024, Additional history exists Fall Risk Assessment 07/20/2025 07/20/2024 DTaP/Tdap/Td Vaccine (3 - Td or Tdap) 10/27/2030 10/27/2020, 12/29/2019 Colon Cancer Screening-Colonoscopy 07/15/20342024, 11/13/2023 Hepatitis B Screening Completed 10/27/2023 Hepatitis C Screening Completed 10/27/2023 Medical Devices Implanted Type Area Dialysis Patient Care Technician Device Identifier Shelf Expiration Date Model / Serial / Lot [employer] Stent Ureteral Set Double Pigtail Radiopaque Tip [employer] [id number] Polyurethane Hydrophilic Coated [id number] - [id number] Implanted:Qty: 1 on 07/16/2024 at [facility] Left: Ureter [employer] 01/27/2027 [id number] / / [id number] Procedures Procedure Name Priority Date/Time Associated Diagnosis Comments POCT GLUCOSE DEVICE Routine 07/20/2024 8 :24 AM CDT CBC WITHOUT DIFFERENTIAL Routine 07/19/2024 9:10 PM CDT POCT GLUCOSE DEVICE Routine 07/19/2024 8 :24 PM CDT POCT GLUCOSE DEVICE Routine 07/19/2024 4 :58 PM CDT POCT GLUCOSE DEVICE Routine 07/19/2024 1 2:46 PM CDT CBC WITHOUT DIFFERENTIAL STAT 07/19/2024 8:57 AM CDT POCT GLUCOSE DEVICE Routine 07/19/2024 8 :00 AM CDT EGFR Timed 07/18/2024 8:43 PM CDT DIFFERENTIAL AUTO Timed 07/18/2024 8:4 3 PM CDT PHOSPHORUS Timed 07/18/2024 8:43 PM CDT MAGNESIUM Timed 07/18/2024 8:43 PM CDT BASIC METABOLIC PANEL Timed 07/18/2024 8:43 PM CDT CBC WITH AUTO DIFFERENTIAL Timed 07/18/2024 8:43 PM CDT POCT GLUCOSE DEVICE Routine 07/18/2024 8 :21 PM CDT POCT GLUCOSE DEVICE Routine 07/18/2024 4 :46 PM CDT POCT GLUCOSE DEVICE Routine 07/18/2024 1 1:46 AM CDT POCT GLUCOSE DEVICE Routine 07/18/2024 8 :43 AM CDT EGFR Timed 07/17/2024 9:15 PM CDT BASIC METABOLIC PANEL Timed 07/17/2024 9:15 PM CDT CBC WITHOUT DIFFERENTIAL Timed 07/17/2024 9:15 PM CDT POCT GLUCOSE DEVICE Routine 07/17/2024 8 :49 PM CDT POCT GLUCOSE DEVICE Routine 07/17/2024 5 :13 PM CDT POCT GLUCOSE DEVICE Routine 07/17/2024 1 2:45 PM CDT POCT GLUCOSE DEVICE Routine 07/17/2024 8 :08 AM CDT POCT GLUCOSE DEVICE Routine 07/17/2024 1 :55 AM CDT EGFR Timed 07/16/2024 10:07 PM CDT PROTIME-INR STAT 07/16/2024 10:07 PM CDT CBC WITHOUT DIFFERENTIAL Timed 07/16/2024 10:07 PM CDT BASIC METABOLIC PANEL Timed 07/16/2024 10:07 PM CDT POCT GLUCOSE DEVICE Routine 07/16/2024 9 :22 PM CDT EGFR STAT 07/16/2024 1:37 PM CDT BASIC METABOLIC PANEL STAT 07/16/2024 1:37 PM CDT CBC WITHOUT DIFFERENTIAL STAT 07/16/2024 1:37 PM CDT POCT GLUCOSE DEVICE Routine 07/16/2024 1 0:53 AM CDT POCT GLUCOSE DEVICE Routine 07/16/2024 1 0:27 AM CDT SURGICAL PATHOLOGY Routine 07/16/2024 9: 28 AM CDT Colostomy in place (HCC) POCT GLUCOSE DEVICE Routine 07/16/2024 8 :17 AM CDT CO AN PROCEDURE PLACEHOLDER Routine 07/16/2024 8:10 AM CDT CO AN ELECTIVE ENDOTRACHEAL AIRWAY Routine 07/16/2024 8:10 AM CDT FL FLUOROSCOPY < 1 HOUR IP Routine 07/16/2024 8:00 AM CDT B CHECK SAMPLE STAT 07/16/2024 7:42 AM CDT EXPLORATORY LAPAROTOMY 07/16/2024 7:[address] in place (HCC) DIVERTING LOOP COLOSTOMY 07/16/2024 7:22 AM CDT Colostomy in place (HCC) PLACEMENT STENT - URETERAL 07/16/2024 7:22 AM CDT Colostomy in place (HCC) PLACEMENT PREOPERATIVE STENT - URETERAL 07/16/2024 7:22 AM CDT Colostomy in place (HCC) COLOSTOMY TAKEDOWN 07/16/2024 7: 22 AM CDT Colostomy in place (HCC) TYPE AND SCREEN STAT 07/16/2024 7:18 AM CDT POCT GLUCOSE DEVICE Routine 07/16/2024 6 :08 AM CDT COLONOSCOPY 07/15/2024 10:39 AM CDT COLONOSCOPY 07/15/2024 10:[address] ABDOMEN PELVIS W CONTRAST Schedule Routine, Read Routine (OP Routine) 07/15/2024 9:00 AM CDT Hepatic abscess POCT GLUCOSE DEVICE Routine 07/15/2024 8 :37 AM CDT EGFR Routine 07/02/2024 1:20 PM CD[address]ostomy in place (HCC) URINALYSIS, MICROSCOPIC ONLY Routine 07/02/2024 1:20 PM CDT Preoperative testing BASIC METABOLIC PANEL Routine 07/02/2024 1:20 PM CD[address]ostomy in place (HCC) URINALYSIS AND REFLEX TO MICROSCOPIC Routine 07/02/2024 1:20 PM CDT Preoperative testing CBC WITHOUT DIFFERENTIAL Routine 07/02/2024 1:20 PM CDT Preoperative testing SCAN - LABS 06/16/2024 LITHOLINK 24HR URINE PANEL Routine 06/03/2024 7:00 AM CDT Renal calculus, left LIPID PANEL STAT 12/04/2023 5:24 PM CDT HEMOGLOBIN A1C STAT 11/04/2023 7:56 AM CDT HEPATITIS C ANTIBODY Routine 10/27/2023 9:30 AM CDT History of chronic ulcerative colitis High risk medications (not anticoagulants) long-term use from Last 3 Months or Most Recently Relevant to Health Maintenance Results * POCT glucose (07/20/2024 8:24 AM CDT) [facility] Glucose, POC 122 70 - 199 mg/dL Comment: Interpretive Data Glucose is assumed to be non-fasting. Fasting Glucose reference ranges are: 0 - 150 years: 70 mg/dL - 99 mg/dL Current interpretive data was last revised on 2013. POC Performer [id number] GO JARAMILLO POC Device Number [id number] GO ROBERTWCH Blood 07/20/2024 8:24 AM CDT 07/20/2024 8:24 AM CDT us Yo Ferreira MD LAB POCT ORDERABLES - DEVICE Final Result GO ROBERTCH [address] [facility]. [place] [employer] [place] [address] * (ABNORMAL) CBC without differential (07/19/2024 9:10 PM CDT) [facility] WBC 4.86 3.80 - 9.90 K/cumm Hgb 7.9(L) 11.9 - 15.5 g/dL [facility] Hct 23.5(L) 35.6 - 45.5 % [facility] Plt 136(L) 150 - 400 K/cumm [facility] MPV 9.4 9.1 - 12.3 fL [facility] RBC 2.57(L) 3.90 - 5.20 M/cumm [facility] MCV 91.4 81.3 - 96.4 fL [facility] MCH 30.7 27.1 - 33.3 pg [facility] MCHC 33.6 32.3 - 35.7 g/dL [facility] RDW CV 12.7 11.1 - 14.9 % [facility] RDW SD 42.1 35.7 - 48.1 fL [facility] NRBC abs 0.00 0.00 - 0.01 K/cumm [facility] Blood 07/19/2024 9:10 PM CDT 07/19/2024 9:20 PM CDT us Yo Ferreira MD LAB BLOOD ORDERABLES Final R esult [facility] [address] [facility] Department [place] [address] * POCT glucose (07/19/2024 8:24 PM CDT) [facility] Glucose, POC 130 70 - 199 mg/dL Comment: Interpretive Data Glucose is assumed to be non-fasting. Fasting Glucose reference ranges are: 0 - 150 years: 70 mg/dL - 99 mg/dL Current interpretive data was last revised on 2013. POC Performer [id number] [facility] POC Device Number [id number] [facility] Blood 07/19/2024 8:24 PM CDT 07/19/2024 8:24 PM CDT Yo Ferreira MD LAB POCT ORDERABLES - DEVICE Final Result Performing Organization Address [facility] de Phone Number [facility] [address] [place] [address] * POCT glucose (07/19/2024 4:58 PM CDT) Glucose, POC 135 70 - 199 mg/dL Comment: Interpretive Data Glucose is assumed to be non-fasting. Fasting Glucose reference ranges are: 0 - 150 years: 70 mg/dL - 99 mg/dL Current interpretive data was last revised on 2013. POC Performer [id number] [facility] [employer] POC Device Number [id number] GO ROBERTzealot networkSERVANDO Blood 07/19/2024 4:58 PM CDT 07/19/2024 4:58 PM CDT Yo Ferreira MD LAB POCT ORDERABLES - DEVICE Final Result Performing Organization Address [facility] Phone Number GO ROBERTCH [address] [place] [address] * POCT glucose (07/19/2024 12:46 PM CDT) Glucose, POC 96 70 - 199 mg/dL Comment: Interpretive Data Glucose is assumed to be non-fasting. Fasting Glucose reference ranges are: 0 - 150 years: 70 mg/dL - 99 mg/dL Current interpretive data was last revised on 2013. POC Performer [id number] [facility] [employer] POC Device Number [id number] GO ROBERTzealot networkSERVANDO Blood 07/19/2024 12:4 6 PM CDT 07/19/2024 12:46 PM CDT Yo Ferreira MD LAB POCT ORDERABLES - DEVICE Final Result Performing Organization Address [facility]/ZIP Co de Phone Number [facility] [address] [facility] [place] [address] * (ABNORMAL) CBC without differential (07/19/2024 8:57 AM CDT) [facility] WBC 5.10 3.80 - 9.90 K/cumm Hgb 8.6(L) 11.9 - 15.5 g/dL [facility] Hct 25.2(L) 35.6 - 45.5 % [facility] Plt 130(L) 150 - 400 K/cumm [facility] MPV 9.3 9.1 - 12.3 fL [facility] RBC 2.71(L) 3.90 - 5.20 M/cumm [facility] MCV 93.0 81.3 - 96.4 fL [facility] MCH 31.7 27.1 - 33.3 pg [facility] MCHC 34.1 32.3 - 35.7 g/dL [facility] RDW CV 12.9 11.1 - 14.9 % [facility] RDW SD 44.0 35.7 - 48.1 fL [facility] NRBC abs 0.00 0.00 - 0.01 K/cumm [facility] Blood 07/19/2024 8:57 AM CDT 07/19/2024 9:04 AM CDT Kylie Huerta NP LAB BLOOD ORDERABLES Final Resul t Performing Organization Address City/State/[facility] Co de Phone Number GO ROBERTCH [address] [facility] Department [employer] [place] [address] * POCT glucose (07/19/2024 8:00 AM CDT) [facility] Glucose, POC 100 70 - 199 mg/dL Comment: Interpretive Data Glucose is assumed to be non-fasting. Fasting Glucose reference ranges are: 0 - 150 years: 70 mg/dL - 99 mg/dL Current interpretive data was last revised on 2013. POC Performer [id number] [facility] POC Device Number [id number] [facility] Blood 07/19/2024 8:00 AM CDT 07/19/2024 8:00 AM CDT Yo Ferreira MD LAB POCT ORDERABLES - DEVICE Final Result Performing Organization Address [facility] de Phone Number GO SORTOCH [address] [facility] [employer] [place], [place] [id number] * (ABNORMAL) eGFR (07/18/2024 8:43 PM CDT) eGFR 55(L) >=60 mL/min/1. 73 m2 Comment: Interpretive Data [...] interpretive data was last reviewed 2020. Blood 07/18/2024 8:43 PM CDT 07/18/2024 8:45 PM CDT Yo Ferreira MD LAB BLOOD ORDERABLES Final R esult Performing Organization Address [facility] Co de Phone Number GO ROBERTWCH [address] [facility] [employer] [place], [place] [id number] * Differential, auto (07/18/2024 8:43 PM CDT) Neutrophil abs 4.04 1.50 - 6.50 K/cumm Imm gran abs 0.03 0.00 - 0.10 K/cumm [facility] Lymphocyte abs 1.20 0.80 - 3.30 K/cumm [facility] Monocyte abs 0.41 0.20 - 0.80 K/cumm [facility] Eosinophil abs 0.32 0.00 - 0.50 K/cumm [facility] Basophil abs 0.01 0.00 - 0.10 K/cumm [facility] Neutrophil pct 67.2 % [facility] Comment: Interpretive Data Percent cell count reference ranges are not reported, since discordance with absolute values may lead to misinterpretation of CBC data. Current Interpretive Data was last revised on 2017. Imm gran pct 0.5 % [facility] Comment: Interpretive Data Percent cell count reference ranges are not reported, since discordance with absolute values may lead to misinterpretation of CBC data. Current Interpretive Data was last revised on 2017. Lymphocyte pct 20.0 % [facility] Comment: Interpretive Data Percent cell count reference ranges are not reported, since discordance with absolute values may lead to misinterpretation of CBC data. Current Interpretive Data was last revised on 2017. Monocyte pct 6.8 % [facility] Comment: Interpretive Data Percent cell count reference ranges are not reported, since discordance with absolute values may lead to misinterpretation of CBC data. Current Interpretive Data was last revised on 2017. Eosinophil pct 5.3 % [facility] Comment: Interpretive Data Percent cell count reference ranges are not reported, since discordance with absolute values may lead to misinterpretation of CBC data. Current Interpretive Data was last revised on 2017. Basophil pct 0.2 % [facility] Comment: Interpretive Data Percent cell count reference ranges are not reported, since discordance with absolute values may lead to misinterpretation of CBC data. Current Interpretive Data was last revised on 2017. Blood 07/18/2024 8:43 PM CDT 07/18/2024 8:45 PM CDT us Yo Ferreira MD LAB BLOOD ORDERABLES Final R esult Performing Organization Address [facility]/ZIP Co de Phone Number GO JARAMILLO [address] [facility] [place] [address] * (ABNORMAL) CBC with auto differential (07/18/2024 8:43 PM CDT) WBC 6.01 3.80 - 9.90 K/cumm Hgb 7.7(L) 11.9 - 15.5 g/dL [facility] Hct 22.3(L) 35.6 - 45.5 % [facility] Plt 112(L) 150 - 400 K/cumm [facility] MPV 8.9(L) 9.1 - 12.3 fL [facility] RBC 2.41(L) 3.90 - 5.20 M[facility]c[address] [facility] 92.5 81.3 - 96.4 fL [facility] MCH 32.0 27.1 - 33.3 pg [facility] MCHC 34.5 32.3 - 35.7 g/dL [facility] RDW CV 12.9 11.1 - 14.9 % [facility] RDW SD 43.4 35.7 - 48.1 fL [facility] NRBC abs 0.00 0.00 - 0.01 K/cumm [facility] Blood 07/18/2024 8:43 PM CDT 07/18/2024 8:45 PM CDT Yo Ferreira MD LAB BLOOD ORDERABLES Final R esult GO SORTOCH [address] [facility] Department [place] [employer] [place] [address] * (ABNORMAL) Phosphorus (07/18/2024 8:43 PM CDT) Phosphorus, pl 1.9(L) 2.3 - 4.5 mg/dL Blood 07/18/2024 8:43 PM CDT 07/18/2024 8:45 PM CDT Yo Ferreira MD LAB BLOOD ORDERABLES Final R [facility] Performing Organization Address [facility] de Phone Number GO ROBERTCH [address] [facility] [place] [place] [address] * Magnesium (07/18/2024 8:43 PM CDT) Pathologist [facility] Magnesium 2.1 1.4 - 2.5 mg/dL Comment: Reference Data. Reference values for Labor and Delivery patients: < or = 0.7 mg/dL to > or = 7.3 mg/dL Current reference data last reviewd on 11/16/2014. Blood 07/18/2024 8:43 PM CDT 07/18/2024 8:45 PM CDT Yo Ferreira MD LAB BLOOD ORDERABLES Final R [facility] Performing Organization Address [facility] de Phone Number GO ROBERTWCH [address] [facility] [place] [employer] [place] [address] * (ABNORMAL) Basic metabolic panel (07/18/2024 8:43 PM CDT) [facility] Sodium 139 135 - 145 mmol/L Potassium, pl 3.8 3.3 - 4.9 mmol/L [facility] Chloride 107 97 - 110 mmol/L [facility] CO2 23 22 - 32 mmol/L [facility] Anion gap 9 2 - 15 mmol/L [facility] BUN 14 6 - 25 mg/dL [facility] Creatinine 1.10 0.60 - 1.10 mg/dL [facility] Glucose 131 70 - 199 mg/dL [facility] Comment: Interpretive Data Fasting glucose >/= 126 mg/dl is diagnostic for diabetes. Fasting is defined as no caloric intake [...] 2022. Calcium 8.1(L) 8.5 - 10.3 mg/dL GO JARAMILLO Blood 07/18/2024 8:43 PM CDT 07/18/2024 8:45 PM CDT Yo Ferreira MD LAB BLOOD ORDERABLES Final R esult Performing Organization Address [facility] de Phone Number [facility] [address] [facility] [employer] [place], [place] [id number] * POCT glucose (07/18/2024 8:21 PM CDT) Glucose, POC 138 70 - 199 mg/dL Comment: Interpretive Data Glucose is assumed to be non-fasting. Fasting Glucose reference ranges are: 0 - 150 years: 70 mg/dL - 99 mg/dL Current interpretive data was last revised on 2013. POC Performer [id number] [facility] [employer] POC Device Number [id number] [facility] Blood 07/18/2024 8:21 PM CDT 07/18/2024 8:21 PM CDT Yo Ferreira MD LAB POCT ORDERABLES - DEVICE Final Result Performing Organization Address [facility] Phone Number GO ROBERTCH [address] [facility] [place] [employer] [place] [address] * POCT glucose (07/18/2024 4:46 PM CDT) Glucose, POC 135 70 - 199 mg/dL Comment: Interpretive Data Glucose is assumed to be non-fasting. Fasting Glucose reference ranges are: 0 - 150 years: 70 mg/dL - 99 mg/dL Current interpretive data was last revised on 2013. POC Performer [id number] [facility] [employer] [facility] POC Device Number [id number] [facility] Blood 07/18/2024 4:46 PM CDT 07/18/2024 4:46 PM CDT Yo Ferreira MD LAB POCT ORDERABLES - DEVICE Final Result Performing Organization Address [facility] Phone Number GO SORTOCH [address] [place] [address] * POCT glucose (07/18/2024 11:46 AM CDT) Glucose, POC 140 70 - 199 mg/dL Comment: Interpretive Data Glucose is assumed to be non-fasting. Fasting Glucose reference ranges are: 0 - 150 years: 70 mg/dL - 99 mg/dL Current interpretive data was last revised on 2013. POC Performer [id number] [employer] POC Device Number [id number] GO JARAMILLO Blood 07/18/2024 11:4 6 AM CDT 07/18/2024 11:46 AM CDT Yo Ferreira MD LAB POCT ORDERABLES - DEVICE Final Result Performing Organization Address [facility] Phone Number GO ROBERTWCH [address] [place] [address] * POCT glucose (07/18/2024 8:43 AM CDT) Glucose, POC 136 70 - 199 mg/dL Comment: Interpretive Data Glucose is assumed to be non-fasting. Fasting Glucose reference ranges are: 0 - 150 years: 70 mg/dL - 99 mg/dL Current interpretive data was last revised on 2013. POC Performer [id number] [employer] POC Device Number [id number] GO SORTOCH Blood 07/18/2024 8:43 AM CDT 07/18/2024 8:43 AM CDT Yo Ferreira MD LAB POCT ORDERABLES - DEVICE Final Result Performing Organization Address [facility] de Phone Number GO SORTOCH [address] [facility] [place] [address] * (ABNORMAL) eGFR (07/17/2024 9:15 PM CDT) Pathologist [facility] Department eGFR 41(L) >=60 mL/min/1. 73 m2 Comment: Interpretive Data [...] interpretive data was last reviewed 2020. Blood 07/17/2024 9:15 PM CDT 07/17/2024 9:17 PM CDT us Yo Ferreira MD LAB BLOOD ORDERABLES Final R esult Performing Organization Address [facility] Co de Phone Number GO ROBERTWCH [address] [place] [facility] [employer] [place] [address] * (ABNORMAL) CBC without differential (07/17/2024 9:15 PM CDT) WBC 7.25 3.80 - 9.90 K/cumm Hgb 7.9(L) 11.9 - 15.5 g/dL GO W Hct 23.4(L) 35.6 - 45.5 % GO [facility] Plt 118(L) 150 - 400 K/cumm GO [facility] MPV 8.9(L) 9.1 - 12.3 fL [facility] RBC 2.54(L) 3.90 - 5.20 M/cumm [facility] MCV 92.1 81.3 - 96.4 fL [facility] MCH 31.1 27.1 - 33.3 pg [facility] MCHC 33.8 32.3 - 35.7 g/dL [facility] RDW CV 13.0 11.1 - 14.9 % [facility] RDW SD 43.5 35.7 - 48.1 fL [facility] NRBC abs 0.00 0.00 - 0.01 K/cumm [facility] Blood 07/17/2024 9:15 PM CDT 07/17/2024 9:17 PM CDT Narrative [facility] - 07/17/2024 9:20 PM CDT Obtain POD 1 at 2200. us Yo Ferreira MD LAB BLOOD ORDERABLES Final R esult [facility] [address] [facility]. Department [place] [address] * (ABNORMAL) Basic metabolic panel (07/17/2024 9:15 PM CDT) Sodium 136 135 - 145 mmol/L Potassium, pl 4.1 3.3 - 4.9 mmol/L [facility] Chloride 105 97 - 110 mmol/L [facility] CO2 22 22 - 32 mmol/L [facility] Anion gap 10 2 - 15 mmol/L [facility] BUN 21 6 - 25 mg/dL [facility] Creatinine 1.40(H) 0.60 - 1.10 mg/dL [facility] Glucose 182 70 - 199 mg/dL [facility] Comment: Interpretive Data Fasting glucose >/= 126 mg/dl is diagnostic for diabetes. Fasting is defined as no caloric intake [...] 2022. Calcium 7.7(L) 8.5 - 10.3 mg/dL GO JARAMILLO Blood 07/17/2024 9:15 PM CDT 07/17/2024 9:17 PM CDT Narrative GO JARAMILLO - 07/17/2024 9:41 PM CDT Obtain POD 1 at 2200. Yo Ferreira MD LAB BLOOD ORDERABLES Final R esult Performing Organization Address [facility] Co de Phone Number [facility] [phone] [place] [facility] [employer] [address] * POCT glucose (07/17/2024 8:49 PM CDT) Glucose, POC 188 70 - 199 mg/dL Comment: Interpretive Data Glucose is assumed to be non-fasting. Fasting Glucose reference ranges are: 0 - 150 years: 70 mg/dL - 99 mg/dL Current interpretive data was last revised on 2013. POC Performer [id number] [facility] POC Device Number [id number] GO NOREEN Blood 07/17/2024 8:49 PM CDT 07/17/2024 8:49 PM CDT Yo Ferreira MD LAB POCT ORDERABLES - DEVICE Final Result Performing Organization Address [facility] de Phone Number [facility] [address] [facility] [employer] [place] [address] * POCT glucose (07/17/2024 5:13 PM CDT) Glucose, POC 152 70 - 199 mg/dL Comment: Interpretive Data Glucose is assumed to be non-fasting. Fasting Glucose reference ranges are: 0 - 150 years: 70 mg/dL - 99 mg/dL Current interpretive data was last revised on 2013. POC Performer [id number] GO ROBERTMindSnacks POC Device Number [id number] GO JARAMILLO Blood 07/17/2024 5:13 PM CDT 07/17/2024 5:13 PM CDT Yo Ferreira MD LAB POCT ORDERABLES - DEVICE Final Result Performing Organization Address [facility] Phone Number GO BJWCH [address] [facility] [employer] [place] [address] * POCT glucose (07/17/2024 12:45 PM CDT) Glucose, POC 174 70 - 199 mg/dL Comment: Interpretive Data Glucose is assumed to be non-fasting. Fasting Glucose reference ranges are: 0 - 150 years: 70 mg/dL - 99 mg/dL Current interpretive data was last revised on 2013. POC Performer [id number] [facility] POC Device Number [id number] [facility] Blood 07/17/2024 12:4 5 PM CDT 07/17/2024 12:45 PM CDT Yo Ferreira MD LAB POCT ORDERABLES - DEVICE Final Result Performing Organization Address [facility] de Phone Number GO BJWCH [address] [facility] [employer] [place] [address] * POCT glucose (07/17/2024 8:08 AM CDT) Glucose, POC 171 70 - 199 mg/dL Comment: Interpretive Data Glucose is assumed to be non-fasting. Fasting Glucose reference ranges are: 0 - 150 years: 70 mg/dL - 99 mg/dL Current interpretive data was last revised on 2013. POC Performer [id number] [employer] POC Device Number [id number] GO SORTO Blood 07/17/2024 8:08 AM CDT 07/17/2024 8:08 AM CDT Yo Ferreira MD LAB POCT ORDERABLES - DEVICE Final Result Performing Organization Address [facility] de Phone Number GO BJWCH [address] [facility] [place] [place] [address] * POCT glucose (07/17/2024 1:55 AM CDT) Glucose, POC 189 70 - 199 mg/dL Comment: Interpretive Data Glucose is assumed to be non-fasting. Fasting Glucose reference ranges are: 0 - 150 years: 70 mg/dL - 99 mg/dL Current interpretive data was last revised on 2013. POC Performer [id number] GO BJWCH POC Device Number [id number] [facility] [employer] Blood 07/17/2024 1:55 AM CDT 07/17/2024 1:55 AM CDT Yo Ferreira MD LAB POCT ORDERABLES - DEVICE Final Result Performing Organization Address [facility] de Phone Number GO ROBERTWCH [address] [facility] [employer] [place] [address] * (ABNORMAL) eGFR (07/16/2024 10:07 PM CDT) eGFR 41(L) >=60 mL/min/1. 73 m2 Comment: Interpretive Data [...] interpretive data was last reviewed 2020. Blood 07/16/2024 10:0 7 PM CDT 07/16/2024 10:26 PM CDT Yo Ferreira MD LAB BLOOD ORDERABLES Final R esult Performing Organization Address [facility] Co de Phone Number [facility] [address] [place] [employer] [place] [address] * (ABNORMAL) Protime-INR (07/16/2024 10:07 PM CDT) PT 13.3(H) 9.7 - 13.0 sec INR 1.23(H) 0.90 - 1.20 GO JARAMILLO Comment: Interpretive data Oral anticoagulant therapeutic ranges: Venous thromboembolism prophylaxis or treatment: 2.0-3.0 CARDIOLOGY Standard range: 2.0-3.0 High-intensity range: 2.5-3.5 Refer to indication-specific guidelines for appropriate target ranges for prosthetic heart valve replacement. Current interpretive data was last revised on 2019. Blood 07/16/2024 10:0 7 PM CDT 07/16/2024 10:26 PM CDT Yo Ferreira MD LAB BLOOD ORDERABLES Final R esult Performing Organization Address [facility] Co de Phone Number GO WCH [phone] [employer] [employer] [place], [place] [id number] * (ABNORMAL) CBC without differential (07/16/2024 10:07 PM CDT) WBC 13.73(H) 3.80 - 9.90 K/cumm Hgb 9.0(L) 11.9 - 15.5 g/dL GO JARAMILLO Hct 27.3(L) 35.6 - 45.5 % [facility] Plt 151 150 - 400 K/cumm [facility] MPV 9.4 9.1 - 12.3 fL [facility] RBC 2.86(L) 3.90 - 5.20 M/cumm [facility] MCV 95.5 81.3 - 96.4 fL [facility] MCH 31.5 27.1 - 33.3 pg [facility] MCHC 33.0 32.3 - 35.7 g/dL [facility] RDW CV 12.8 11.1 - 14.9 % [facility] RDW SD 44.4 35.7 - 48.1 fL [facility] NRBC abs 0.00 0.00 - 0.01 K/cumm [facility] Blood 07/16/2024 10:0 7 PM CDT 07/16/2024 10:26 PM CDT Narrative [facility] - 07/16/2024 10:35 PM CDT Obtain POD 0 at 2000. us Yo Ferreira MD LAB BLOOD ORDERABLES Final R esult [facility] [address] [facility]. [place] [address] * (ABNORMAL) Basic metabolic panel (07/16/2024 10:07 PM CDT) Sodium 134(L) 135 - 145 mmol/L Potassium, pl 4.4 3.3 - 4.9 mmol/L [facility] Chloride 100 97 - 110 mmol/L [facility] CO2 19(L) 22 - 32 mmol/L [facility] Anion gap 16(H) 2 - 15 mmol/L [facility] BUN 28(H) 6 - 25 mg/dL [facility] Creatinine 1.40(H) 0.60 - 1.10 mg/dL [facility] Glucose 213(H) 70 - 199 mg/dL [facility] Comment: Interpretive Data Fasting glucose >/= 126 mg/dl is diagnostic for diabetes. Fasting is defined as no caloric intake [...] 2022. Calcium 7.8(L) 8.5 - 10.3 mg/dL GO JARAMILLO Blood 07/16/2024 10:0 7 PM CDT 07/16/2024 10:26 PM CDT Narrative GO SORTOCH - 07/16/2024 10:58 PM CDT Obtain POD 0 at 2000. Yo Ferreira MD LAB BLOOD ORDERABLES Final R esult Performing Organization Address [facility] Co de Phone Number [facility] [address] [employer] [place] [address] * (ABNORMAL) POCT glucose (07/16/2024 9:22 PM CDT) [facility] Glucose, POC 230(H) 70 - 199 mg/dL Comment: Interpretive Data Glucose is assumed to be non-fasting. Fasting Glucose reference ranges are: 0 - 150 years: 70 mg/dL - 99 mg/dL Current interpretive data was last revised on 2013. POC Performer [id number] GO JARAMILLO POC Device Number [id number] GO JARAMILLO Blood 07/16/2024 9:22 PM CDT 07/16/2024 9:22 PM CDT Yo Ferreira MD LAB POCT ORDERABLES - DEVICE Final Result Performing Organization Address [facility] Co de Phone Number [facility]ITAL[facility]INE ROBERTCH [address] [facility] [employer] [place], [place] [id number] * (ABNORMAL) eGFR (07/16/2024 1:37 PM CDT) Pathologist [facility] eGFR 50(L) >=60 mL/min/1. 73 m2 Comment: Interpretive Data [...] interpretive data was last reviewed 2020. Blood 07/16/2024 1:37 PM CDT 07/16/2024 1:41 PM CDT us Kylie Huerta NP LAB BLOOD ORDERABLES Final Resul t [facility] [address] [facility]. [place] [address] * (ABNORMAL) CBC without differential (07/16/2024 1:37 PM CDT) Pathologist [facility] WBC 11.56(H) 3.80 - 9.90 K/cumm Hgb 10.4(L) 11.9 - 15.5 g/dL [facility] Hct 30.4(L) 35.6 - 45.5 % [facility] Plt 148(L) 150 - 400 K/cumm [facility] MPV 8.9(L) 9.1 - 12.3 fL [facility] RBC 3.33(L) 3.90 - 5.20 M/cumm [facility] MCV 91.3 81.3 - 96.[address] [facility] MCH 31.2 27.1 - 33.3 pg CERNER [facility] MCHC 34.2 32.3 - 35.7 g/dL [facility] RDW CV 12.4 11.1 - 14.9 % [facility] RDW SD 41.3 35.7 - 48.1 fL [facility] NRBC abs 0.00 0.00 - 0.01 K/cumm [facility] Blood 07/16/2024 1:37 PM CDT 07/16/2024 1:41 PM CDT us Kylie Huerta DIRECTOR [employer] DEVELOPMENT LAB BLOOD ORDERABLES Final Resul t [facility] [address] [facility]. [place] [address] * (ABNORMAL) Basic metabolic panel (07/16/2024 1:37 PM CDT) Sodium 139 135 - 145 mmol/L Potassium, pl 3.9 3.3 - 4.9 mmol/L [facility] Chloride 104 97 - 110 mmol/L [facility] CO2 20(L) 22 - 32 mmol/L [facility] Anion gap 15 2 - 15 mmol/L [facility] BUN 26(H) 6 - 25 mg/dL [facility] Creatinine 1.20(H) 0.60 - 1.10 mg/dL [facility] Glucose 170 70 - 199 mg/dL [facility] Comment: Interpretive Data Fasting glucose >/= 126 mg/dl is diagnostic for diabetes. Fasting is defined as no caloric intake [...] 2022. Calcium 8.2(L) 8.5 - 10.3 mg/dL [facility] Blood 07/16/2024 1:37 PM CDT 07/16/2024 1:41 PM CDT Kylie Huerta [employer]ELOPMENT LAB BLOOD ORDERABLES Final Resul t Performing Organization Address [facility] de Phone Number GO JARAMILLO [address] [facility] [employer] [place] [address] * POCT glucose (07/16/2024 10:53 AM CDT) Glucose, POC 132 70 - 199 mg/dL Comment: Interpretive Data Glucose is assumed to be non-fasting. Fasting Glucose reference ranges are: 0 - 150 years: 70 mg/dL - 99 mg/dL Current interpretive data was last revised on 2013. POC Performer [id number] GO [employer]SERVANDO POC Device Number [id number] GO JARAMILLO Blood 07/16/2024 10:5 3 AM CDT 07/16/2024 10:53 AM CDT us Yo Ferreira MD LAB POCT ORDERABLES - DEVICE Final Result Performing Organization Address [facility] de Phone Number GO SOTROCH [address] [facility] [place] [place] [address] * POCT glucose (07/16/2024 10:27 AM CDT) Glucose, POC 129 70 - 199 mg/dL Comment: Interpretive Data Glucose is assumed to be non-fasting. Fasting Glucose reference ranges are: 0 - 150 years: 70 mg/dL - 99 mg/dL Current interpretive data was last revised on 2013. POC Performer [id number] [employer] POC Device Number [id number] GO JARAMILLO Blood 07/16/2024 10:2 7 AM CDT 07/16/2024 10:27 AM CDT Yo Ferreira MD LAB POCT ORDERABLES - DEVICE Final Result Performing Organization Address [facility] Co de Phone Number GO BJWCH [address] [facility]. [place] [address] * Surgical pathology (07/16/2024 9:28 AM CDT) Tissue (Rectum, Resection) 07/16/2024 9:28 AM CDT Tissue specimen (specimen) (Colon, Colostomy Stoma) 07/16/2024 10:19 AM CDT Narrative PATHOLOGY [facility] - 07/26/2024 12:46 PM CDT EPIC results best viewed via link to PDF [facility] [place] [address] Note to Patients: This report may contain [...] details. SURGICAL PATHOLOGY REPORT FINAL Patient Name: FARHANA RUSSO Gender: F : 1960 (Age: 64) Address: [address] [place], [place] [id number] Hospital #: [id number] Taken:07/16/2024 Received:07/16/2024 Reported: 07/26/2024 Patient [facility]: [facility] Client [facility] Service: Surgery Location: Physician(s): Monserrat Rubio M.D. Diagnosis: A. Rectum, resection - Rectal wall with cryptitis, erosion and prominent lymphoid aggregates; see comment - Negative for granuloma, dysplasia, and viral inclusions - Five benign lymph nodes B. Colostomy, stoma, takedown - Bowel wall with reactive epithelial changes and mild hemorrhage - No viable squamous mucosa identified (additional sections submitted) [facility]/07/26/2024 12:46 By this signature, I attest that the above diagnosis is based upon my personal examination of the slides(and/or other material indicated in the diagnosis). Noe Osman M.D. Report Electronically Reviewed and Signed Out By Noe Osman M.D. 07/26/2024 12:46:06 Microscopic Description and Comment: A. 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 Histology shows cryptitis and prominent surface lymphoid aggregates. 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 Differential also includes inflammatory bowel disease, medication injury and infection. Clinical and endoscopic correlation is still recommended. History: The patient is a 64-year-old woman with colostomy in place. Operative procedure: Colostomy takedown. Specimen(s) Received: A: Rectum B: Colostomy stoma Gross Description: Received in two formalin jars labeled with the patient's identifiers. A. Labeled rectum is a 2.2 cm in length by 2.3 cm in diameter portion of rectum and surrounding mesorectal soft tissue. The segment is opened to show unremarkable dupree mucosal folds. Multiple lymph nodes are identified at the distal resection margin ranging from 0.5 cm to 0.9 cm in greatest dimension. In 4 cassettes as follows: A1-A2 Resection margins, shaved, A3 [place] sections of rectal mucosa, A4 Lymph nodes, intact. Jar 1. B. Labeled colostomy stoma is a 4.8 cm in length by 2.3 cm in diameter segment of large intestine. At one end is a stoma composed of erythematous mucosa dupree-pink skin measuring 3.2 x 2.0 cm. The segment is opened to show unremarkable dupree-pink mucosal folds. Labeled B1. Jar 1. cnewho/07/19/2024 10:48 PA(s): MARJ Casas By this signature, I attest that the above diagnosis is based upon my personal examination of the slides(and/or other material). Addenda/Procedures Microscopic slide review and interpretation for this case was performed at [facility], Department of Surgical Pathology, [address] [facility] [address], [place] [id number], [place] [address] CLIA # [id number] The performance characteristics of some immunohistochemical stains, fluorescence in-situ hybridization tests and immunophenotyping by flow cytometry cited in this report (if any) were determined by the Surgical Pathology and Flow Cytometry Departments at [facility] as part of an ongoing quality control microbiologist program and in compliance with federally mandated regulations drawn from the Clinical Laboratory Improvement Act of 1988 (CLIA '88). Some of these tests rely on the use of analyte specific reagents and are subject to specific labeling requirements by the US Food and Drug Administration. Such diagnostic tests may only be performed in a facility that is certified by the Department of Health and Human Services as a high complexity laboratory under CLIA '88. The FDA has determined that such clearance or approval is not necessary. This test is used for clinical purposes. It should not be regarded as investigational or for research. Nevertheless, federal rules concerning the medical use of analyte specific reagents require that the following disclaimer be attached to the report: This test was developed and its performance characteristics determined by the Surgical Pathology and Flow Cytometry Departments of [facility]. It has not been cleared or approved by the U. S. Food and Drug Administration. IMAGES AND SCANNED DOCUMENTS, IF INCLUDED, ONLY VIEWABLE IN PDF VERSION OF REPORT Yo Ferreira MD LAB PATHOLOGY ORDERABLES Fin al Result [facility] [phone] * POCT glucose (07/16/2024 8:17 AM CDT) Glucose, POC 86 70 - 199 mg/dL Comment: Interpretive Data Glucose is assumed to be non-fasting. Fasting Glucose reference ranges are: 0 - 150 years: 70 mg/dL - 99 mg/dL Current interpretive data was last revised on 2013. POC Performer [id number] GO JARAMILLO POC Device Number [id number] GO JARAMILLO Blood 07/16/2024 8:17 AM CDT 07/16/2024 8:17 AM CDT Yo Ferreira MD LAB POCT ORDERABLES - DEVICE Final Result [facility] [id number] [facility] [place] [address] * CO AN ELECTIVE ENDOTRACHEAL AIRWAY, CO AN PROCEDURE PLACEHOLDER (07/16/2024 8:10 AM CDT) Narrative Taryn Krishna CRNA - 07/16/2024 8:10 AM CDT Taryn Krishna CRNA 07/16/2024 8:11 AM Airway Patient location: OR Urgency: elective Indications for airway management: anesthesia Difficult airway: no Staff: Placed by: ER MEDICAL TECHNICIAN: Taryn Krishna CRNA Airway prep: Preoxygenated: yes Patient position: sniffing Mask difficulty assessment: 2 - vent by mask + OA or adjuvant Spontaneous ventilation during airway: absent Sedation level during airway: GA Final airway details: Final airway type: endotracheal airway Tube type: ETT ETT size: 7.0 mm Cuffed: yes Technique used for successful ETT placement: video laryngoscopy Devices/Methods used in placement: cricoid pressure Insertion site: oral Blade type: Johnny Video blade type: Ronquillo Blade size: 4 Cormack-Lehane (video): grade I - full view of glottis Cuff volume: 6 mL Cuff inflated with: air ETT to teeth: 21 cm Placement verified by: auscultation and CO2 detection Airway secured with: silk tape Number of attempts: 1 Additional comments: Atraumatic. Retronagthic ---> VL. Teeth and mouth in preinduction condition. Taped and secured us Bharathi Doran MD ANESTHESIA ORDERABLES Samantha l Result * FL Fluoroscopy < 1 Hour (07/16/2024 8:00 AM CDT) Narrative [facility] - 07/16/2024 1:57 PM CDT The images from this study are not interpreted by Radiology. Please refer to the physician's procedure / OR operative note. us Alvarado Blackman DO IMG FLUOROSCOPY PROCEDURES Fin al Result [facility] * Check Sample (07/16/2024 7:42 AM CDT) ABO Rh O Positive GO JARAMILLO HCLL OTHER 07/16/2024 7:42 AM CDT 07/16/2024 8:52 AM CDT Yo Ferreira MD LAB BLOOD ORDERABLES Final R esult Performing Organization Address [facility] de Phone Number [facility] [address] [facility] [place] [place] [address] * Type and screen (07/16/2024 7:18 AM CDT) Maira, indirect Negative CERYASMINE [facility] ABO Rh O Positive GO JARAMILLO Blood 07/16/2024 7:18 AM CDT 07/16/2024 7:41 AM CDT Narrative GO AJRAMILLO - 07/16/2024 8:51 AM CDT Has the patient had Daratumumab or Isatuximab in the past 6 months?->Unknown Bong De Santiago DO LAB BLOOD BANK TEST ORDER INO Final Result Performing Organization Address [facility] de Phone Number [facility] [address] [facility] [place] [place] [address] * POCT glucose (07/16/2024 6:08 AM CDT) Glucose, POC 85 70 - 199 mg/dL Comment: Interpretive Data Glucose is assumed to be non-fasting. Fasting Glucose reference ranges are: 0 - 150 years: 70 mg/dL - 99 mg/dL Current interpretive data was last revised on 2013. POC Performer [id number] SABIHAYASMINE JARAMILLO POC Device Number [id number] GO JARAMILLO Blood 07/16/2024 6:08 AM CDT 07/16/2024 6:08 AM CDT Yo Ferreira MD LAB POCT ORDERABLES - DEVICE Final Result Performing Organization Address [facility] de Phone Number [facility] [address] [facility] [place] [address] * Colonoscopy (07/15/2024 10:39 AM CDT) Anatomical Region Laterality Modality Other Narrative Procedure Note Yo Ferreira MD - 07/15/2024 10:39 AM CDT [facility] Patient Name: Farhana Russo Procedure Date: 07/15/2024 10:39 AM Date of : 1960 Admit Type: Outpatient Age: 64 Gender: Female Attending MD: Yo Ferreira M.D. Room: [facility] ENDOSCOPY ROOM 02 Note Status: Finalized Procedure: Colonoscopy Indications: Screening for colorectal malignant neoplasm Referring MD: Kaushal Heath M.D. Providers: Yo Ferreira M.D. Medicines: Propofol per Anesthesia Complications: No immediate complications. Estimated blood loss:None. Estimated Blood Loss: Estimated blood loss: none. Procedure: Pre-Anesthesia Assessment: - Immediately prior to administration ofmedications, the patient was re-assessed for adequacy to receive sedatives. - Sedation was administered by an anesthesia professional. General anesthesia was attained. - The heart rate, respiratory rate, oxygen saturations, blood pressure, adequacy of pulmonary ventilation, and response to care were monitored throughout the procedure. - The physical status of the patient wasre-assessed after the procedure. The benefits, risks and alternatives of theprocedure and sedation were discussed and informed consentwas obtained. All questions were answered. Please referto the signed informed consent document in the medical record. The scope was passed under direct vision.The [id number] Endoscsope was introduced through the descending colostomy and advanced to the the cecum, identified by appendiceal orifice andileocecal valve. The colonoscopy was performed with ease. The patient tolerated the procedure well. The qualityof the bowel preparation was excellent. The quality of the bowel preparation was evaluated using the BBPS ([place] Bowel Preparation Scale) with scores of:Right Colon = 3, Transverse Colon = 3 and Left Colon =NA. The total BBPS score equals 6* (*this score is the summation of 2 or fewer segments). Scope was then introduced per rectum and advance to the top of the rectal stump. The bowel preparation used was SUPREP via split dose instruction. Findings: The entire examined colon appeared normal. - Rectum with mild inflammation consistent with diversionproctitis. Impression: - The entire examined colon is normal. - No specimens collected. Recommendation: - Repeat colonoscopy in 5 years for surveillance. Attending Participation: I personally performed the entire procedure. Electronically signed by Dr.Matthew Jhon M.D. Yo Ferreira M.D. 07/15/2024 10:54:43 AM . Number of Addenda: 0 Note Initiated On: 07/15/2024 10:39 AM Recognized by the [place] [employer] for promoting quality in endoscopy us Yo Ferreira MD ENDOSCOPY PROCEDURES Final R esult * CT Abd/Pelvis with contrast (07/15/2024 9:00 AM CDT) Anatomical Region Laterality Modality Body N/A Computed Tomogra phy 07/15/2024 10:0 5 AM CDT Impressions 07/15/2024 10:39 AM CDT 1. 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 Previously described hepatic and splenic abscesses have resolved. 2. Peripherally calcified left staghorn calculus with associated proximal left ureteral fat stranding and mottled cortical hypoattenuation in the upper pole suggestive of superimposed pyelonephritis. Dictated by: Harley Smyth MD The radiology attending physician has personally reviewed this study, and had reviewed and/or edited this written report and agrees with it. Electronically signed by: Brian Dawkins M.D. Narrative 07/15/2024 10:39 AM CDT EXAMINATION: Computed tomography of the abdomen and pelvis with intravenous contrast HISTORY: Abscess TECHNIQUE: Transaxial computed tomographic images of the abdomen and pelvis were obtained with intravenous contrast according to the standard protocol after the uneventful administration of 69 mL Opti-Ray 350 intravenous contrast. COMPARISON: 05/11/2024 FINDINGS: Lung bases are clear without consolidation, effusion, or basilar pneumothorax. No pericardial effusion. Tiny hypoattenuating liver lesions are too small to characterize and likely cysts. The main portal vein is patent. The gallbladder surgically absent. The spleen, pancreas, and adrenal glands are unremarkable. Stable staghorn left renal stones are present with proximal left ureteral fat stranding and mottled cortical hypoattenuation in the periphery of the posterior left renal upper pole. No hydronephrosis or right nephrolithiasis. The urinary bladder is decompressed. Postoperative changes from left colectomy are present. A left lower quadrant colostomy is noted with mild inflammatory changes noted about the distal bowel. There is no bowel obstruction. The uterus is surgically absent. No drainable intra-abdominal abdominal free fluid or pneumoperitoneum. Central abdominal rectus diastases is noted. No lymphadenopathy. Degenerative changes of the spine are noted without acute fracture or aggressive osseous lesion. Procedure Note Brian Dawkins MD - 07/15/2024 EXAMINATION: Computed tomography of the abdomen and pelvis with intravenous contrast HISTORY: Abscess TECHNIQUE: Transaxial computed tomographic images of the abdomen and pelvis were obtained with intravenous contrast according to the standard protocol after the uneventful administration of 69 mL Opti-Ray 350 intravenous contrast. COMPARISON: 05/11/2024 FINDINGS: Lung bases are clear without consolidation, effusion, or basilar pneumothorax. No pericardial effusion. Tiny hypoattenuating liver lesions are too small to characterize and likely cysts. The main portal vein is patent. The gallbladder surgically absent. The spleen, pancreas, and adrenal glands are unremarkable. Stable staghorn left renal stones are present with proximal left ureteral fat stranding and mottled cortical hypoattenuation in the periphery of the posterior left renal upper pole. No hydronephrosis or right nephrolithiasis. The urinary bladder is decompressed. Postoperative changes from left colectomy are present. A left lower quadrant colostomy is noted with mild inflammatory changes noted about the distal bowel. There is no bowel obstruction. The uterus is surgically absent. No drainable intra-abdominal abdominal free fluid or pneumoperitoneum. Central abdominal rectus diastases is noted. No lymphadenopathy. Degenerative changes of the spine are noted without acute fracture or aggressive osseous lesion. IMPRESSION: 1. 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 Previously described hepatic and splenic abscesses have resolved. 2. Peripherally calcified left staghorn calculus with associated proximal left ureteral fat stranding and mottled cortical hypoattenuation in the upper pole suggestive of superimposed pyelonephritis. Dictated by: Harley Smyth MD The radiology attending physician has personally reviewed this study, and had reviewed and/or edited this written report and agrees with it. Electronically signed by: Brian Dawkins M.D. Gildardo Jung MD IMG CT PROCEDURES Final Resul t * POCT glucose (07/15/2024 8:37 AM CDT) Glucose, POC 106 70 - 199 mg/dL Blood 07/15/2024 8:37 AM CDT 07/15/2024 8:37 AM CDT Yo Ferreira MD LAB POCT ORDERABLES - DEVICE Final Result [facility] [address] [facility] [place] [address] * (ABNORMAL) eGFR (07/02/2024 1:20 PM CDT) eGFR 41(L) >=60 mL/min/1. 73 m2 Comment: Interpretive Data [...] interpretive data was last reviewed 2020. Blood 07/02/2024 1:20 PM CDT 07/02/2024 2:49 PM CDT us Yo Ferreira MD LAB BLOOD ORDERABLES Final R esult [facility] [place] [address] * (ABNORMAL) Urinalysis reflex to microscopic (07/02/2024 1:20 PM CDT) Color, ur Yellow Yellow Clarity, ur Clear Clear [facility] Specific gravity, ur 1.021 1.003 - 1.030 [facility] pH, urine 6.0 [facility] Comment: Interpretive Data U rine pH is affected by diet, medications, systemic acid-base disturbances, and renal tubular function. pH may affect urinary stone formation. For example, urine pH below 6.0 may help reduce the tendency for calcium phosphate stones and pH greater than 6.0 may reduce the tendency for uric acid stone formation. Source: [facility] Current Interpretive Data was last revised on 2017 Protein, ur ql 1+(A) Negative [facility] Glucose, ur ql Negative Negative [facility] Ketones, ur Negative Negative [facility] Bilirubin, ur Negative Negative [facility] Blood, ur 2+(A) Negative [facility] Urobilinogen, ur <2.0 <2.0 mg/dL [facility] Nitrite, ur Negative Negative [facility] Leukocyte esterase, ur 2+(A) Negative [facility] UA reflex comment Reflex to microscopic UA will be performed. [facility] Urine 07/02/2024 1:20 PM CDT 07/02/2024 2:26 PM CDT Bong De Santiago DO LAB URINE ORDERABLES Samantha l Result Performing Organization Address [facility] de Phone Number [facility] Department [place] [address] * (ABNORMAL) Urinalysis, microscopic only (07/02/2024 1:20 PM CDT) WBC, ur 11-20(A) 0 - 5 /HPF RBC, ur 21-50(A) 0 - 2 /HPF [facility] Epithelial cells, squamous, ur 1-5 0 - 5 /HPF [facility] Mucous, ur Present(A) [facility] Urine 07/02/2024 1:20 PM CDT 07/02/2024 2:26 PM CDT Bong A. [employer] Huan Xiong LAB URINE ORDERABLES Samantha l Result Performing Organization Address [facility] Co de Phone Number [facility] [place] [place] [address] * (ABNORMAL) CBC without differential (07/02/2024 1:20 PM CDT) WBC 4.52 3.80 - 9.90 K/cumm Hgb 11.2(L) 11.9 - 15.5 g/dL [facility] Hct 32.5(L) 35.6 - 45.5 % [facility] Plt 155 150 - 400 K/cumm [facility] MPV 9.5 9.1 - 12.3 fL [facility] RBC 3.64(L) 3.90 - 5.20 M/cumm [facility] MCV 89.3 81.3 - 96.4 fL [facility] MCH 30.8 27.1 - 33.3 pg [facility] MCHC 34.5 32.3 - 35.7 g/dL [facility] RDW CV 12.6 11.1 - 14.9 % [facility] RDW SD 41.2 35.7 - 48.1 fL [facility] NRBC abs 0.00 0.00 - 0.01 K/cumm [facility] Blood 07/02/2024 1:20 PM CDT 07/02/2024 2:30 PM CDT us Bong De Santiago DO LAB BLOOD ORDERABLES Samantha l Result [facility] [place] [address] * (ABNORMAL) Basic metabolic panel (07/02/2024 1:20 PM CDT) Sodium 138 135 - 145 mmol/L Potassium, pl 4.1 3.3 - 4.9 mmol/L [facility] Chloride 103 97 - 110 mmol/L [facility] CO2 28 22 - 32 mmol/L [facility] Anion gap 7 2 - 15 mmol/L [facility] BUN 30(H) 6 - 25 mg/dL [facility] Creatinine 1.42(H) 0.60 - 1.10 mg/dL [facility] Glucose 105 70 - 199 mg/dL [facility] Comment: Interpretive Data Fasting glucose >/= 126 mg/dl is diagnostic for diabetes. Fasting is defined as no caloric intake [...] 2022. Calcium 9.1 8.5 - 10.3 mg/dL [facility] Blood 07/02/2024 1:20 PM CDT 07/02/2024 2:49 PM CDT Narrative [facility] - 07/02/2024 3:18 PM CDT This order is is required for all post operative patients receiving lovenox. Yo Ferreira MD LAB BLOOD ORDERABLES Final R esult [facility] [place] [address] * SCAN - LABS (06/16/2024) Provider Scanning Final Result * (ABNORMAL) [employer] 24Hr Urine Panel (06/03/2024 [...] 06/09/2024 9:10 AM CDT Performed at: - [address] [id number] Gui Developer: Kelsey Tran PhD, Phone: [phone] us Colby Curtis MD LAB URINE ORDERABLES Final Resul t [facility] - 01 * (ABNORMAL) Lipid panel (12/04/2023 5:24 PM [...] revised on 2017. Triglycerides 75 <=149 mg/dL [facility] Comment: Interpretive Data Ages < [...] revised on 2017. HDL 27(L) >=40 mg/dL [facility] Comment: Interpretive Data Ages < [...] on 2017. LDL, calculated 28 <=129 mg/dL [facility] Comment: Interpretive Data Ages < or = 19 years Acceptable: <110 mg/dL Borderline high: 110-129 mg/dL High: >or= 130 mg/dL Ages > or = 20 years Optimal: <100 mg/dL Near optimal: 100-129 mg/dL Borderline high: 130-159 mg/dL High: >160 mg/dL Calculated using the Miller LDL-C estimating equation. This equation was implemented on 2023. Prior to this date LDL-C was estimated using the Friedewald equation. Literature References: 1. Expert Panel on Integrated Guidelines for Cardiovascular Health and Risk Reduction in Children and Adolescents. Pediatrics 2011;128:S213 2. NCEP Expert Panel. Circulation 2004;110:227 3. Paul M et al. VAL Cardiol. 2020 June 17;5(5):540-548. doi: 10.1001/jamacardio.2020.0013 Current Interpretive Data was last revised on 2023. Non-HDL Cholesterol 44 mg/dL [facility] Comment: Interpretive Data Ages < [...] last revised on 2017. Chol/HDL ratio 3 [facility] Blood 12/04/2023 5:24 PM CDT 12/04/2023 5:34 PM CDT Narrative [facility] - 12/04/2023 7:03 PM CDT This lipid panel was automatically ordered due to a significant change in Troponin. The dietary status of the patient at the collection time should be correlated with the lipid results. us Álvaro Radford MD LAB BLOOD ORDERABLES Final Result [facility] [place] [address] * (ABNORMAL) Hemoglobin A1c (11/04/2023 7:56 AM CDT) Hgb A1C 5.7(H) 4.0 - 5.6 % Estimated Average Glucose 117 mg/dL [facility] Comment: The ADA recommends reporting an estimated [...] ORDERABLES F inal Result Performing Organization Address City/[facility]/ZIP Co de Phone Number [facility] [place] [address] * Hepatitis C antibody Blood (10/27/2023 9:30 [...] last revised on 2019. Testing performed by: [facility], [address] [place] [address], [place]., [address] Blood 10/27/2023 9:30 AM CDT 10/27/2023 12:43 PM CDT Gildardo Jung MD LAB MICROBIOLOGY - GENERAL OR DERABLES Edited Result - Final Performing Organization Address City/[facility]/ZIP Co de Phone Number [facility] [address] [facility] [place] [address] from Last 3 Months or Most Recently Relevant to Health Maintenance Insurance MEDICARE [facility] MEDICARE [facility] [place] [address] Advance Directives For more information, please contact: [phone] * Full Code (Latest Code Status on File) Date Activated Date Inactivated Comments 07/16/2024 11:46 AM 07/20/2024 3:44 PM * Full Code Date Activated Date Inactivated Comments 07/15/2024 9:06 AM 07/15/2024 3:39 PM * Full Code Date Activated Date Inactivated Comments 11/25/2023 7:02 PM 12/30/2023 10:03 PM * Full Code Date Activated Date Inactivated Comments 11/13/2023 12:01 PM 11/13/2023 6:29 PM * Full Code Date Activated Date Inactivated Comments 11/05/2023 5:00 PM 11/06/2023 7:28 PM Care Teams Claims Account Specialist Relationship Specialty Start Date End Date Kaushal Heath MD [address] [place] [address] PCP - General Internal Medicine 10/30/23 Bigg Delarosa MD [address] [address] Referring Physician Gastroenterology 10/15/23 Jefe Choe MD [address] [facility] [address] [place] [address] [place] [address] Referring Physician Gastroenterology 10/15/23 Melissa Rhodes MD [address] [facility], [address] [address] Consulting Physician Gynecologic Oncology 10/30/23
--- OUTSIDE RECORDS SUMMARY | 2024-09-02 08:04 | XMS_ITS | Patient Health Record ---
Author Organization [facility] Address [address] [place], [place] [id number] Care Team Providers Care Manager Software Development Name Role Phone JENNYFER KELLY Unavailable [phone] Kylie Ghosh Unavailable Unavailable Reason For Referral No Information Plan Of Treatment No Information Insurance Providers Payer Name Payer Address Payer Phone Subscriber Number Group Number Insured Name Patient Relationship to Insured Coverage Start Date Coverage End Date SRINIVASR Ludmila / ANURADHA [address] [id number] DARIUS GARCIAS Self - patient is the insured
--- OUTSIDE RECORDS SUMMARY | 2024-09-02 08:04 | XMS_ITS | Referral Summary ---
Author Organization [facility] Address [address] [place] [address] Care Team Providers Care Assistant Teacher Primary Name Role Phone Bigg Delarosa MD Unavailable [phone] Jefe Choe MD Unavailable + Melissa Rhodes MD Unavailable [phone] Kaushal Heath MD Primary Care Provider [phone] Encounters Date Type Department Care Team Description 08/17/2024 1:45 PM CDT Office Visit [facility] Surgery [address] [place] [address] Medical Office Building [address] [place] [address] Yo Ferreira MD Ileostomy present (HCC) (Primary Dx) 07/21/2024 Telephone [facility] Surgery [address] [place] [address] Office Building [address] [place] [address] Mel May RN 07/16/2024 5:20 AM CDT - 07/20/2024 11:39 AM CDT Hospital Encounter [facility] [address] [address] [place] [address] Yo Ferreira MD Staghorn calculus (Primary Dx); Colostomy in place (HCC); Diverticulitis Discharge Disposition: Discharge to home or self care 07/16/2024 7:15 AM CDT - 07/16/2024 11:30 AM CDT Surgery [facility] Operating Room 04586 Tameka [facility]od [facility] [place] [address] Yo Ferreira MD COLOSTOMY TAKEDOWN 07/16/2024 7:17 AM CDT Anesthesia Event [facility] Operating Room [address]37 Tameka [facility] [place] [address] Bharathi Doran MD Khodamoradi, Shahrdad, MD 07/15/2024 Telephone [facility] [address] [facility] 2nd Floor [address] [place] [address] Wilma Vega, A Surgery Confirmation 07/15/2024 7:53 AM CDT - 07/15/2024 11:59 PM CDT Hospital Encounter [facility] Radiology at [address] [address] Hepatic abscess Discharge Disposition: Discharge to home or self care 07/15/2024 10:36 AM CDT - 07/15/2024 11:06 AM CDT Surgery [facility] Endoscopy at [address] [address] Yo Ferreira MD COLONOSCOPY THROUGH COLOSTOMY 07/15/2024 10:33 AM CDT Anesthesia Event [facility] Endoscopy at [address] [address] Brian Aldana MD 07/15/2024 7:44 AM CDT - 07/15/2024 11:39 AM CDT Hospital Encounter [facility] Endoscopy at [address] [address] Yo Ferreira MD Discharge Disposition: Discharge to home or self care 07/08/2024 Telephone [facility] Surgery [address] [facility] 2nd [address] [place] [address] Wilma Vega Tila Colonoscopy 07/08/2024 Telephone [facility] Gastroenterology [address] [place] [address] 12th [place] [address] [place] [address] BrandenKatie, RMA 07/07/2024 Orders Only [facility] [address] [facility] Medical Office Building [address] [place] [address] Yo Ferreira MD 07/07/2024 Telephone [facility] Surgery [address] 2[address] [place] [address] Marlyn Dunn, RMA Colonoscopy 07/06/2024 Orders Only [facility] Surgery [address] [facility] Medical Office Building [address] [place] [address] Yo Ferreira MD 07/02/2024 12:30 PM CDT Pre-Admission Testing [facility] for Preoperative Assessment and Planning [facility] Advanced Medicine ([facility] [address] [place] [address] Preoperative testing (Primary Dx); Colostomy in place (HCC) 06/28/2024 Telephone [facility] Gastroenterology [address] [facility] Medicine 12th [place] [address] [place] [phone] Che Gamble RN Lab Results 06/16/2024 Orders Only [facility] GASTRO[facility]OLOGY Scanning, Provider 06/10/2024 Telephone [facility] ([facility]) - [facility] Urology [address] [facility] 11th [place] [address] [place] [address] Colby Curtis MD from Last 3 Months Allergies Active [...] total) by mouth every morning Active prenat.vits,erica ,cci-uemn-atypz tabletIndicatio ns:supplement Take 1 tablet by mouth every morning Active ergocalciferol (VITAMIN D) 50,000 unit capsuleIndicati ons:Vitamin D Deficiency Take 1 capsule (50,000 Units total) by mouth once a week 5 Active potassium citrate ER (UROCIT-K) 10 mEq (1,080 mg) CR tablet Take 1 tablet (10 mEq total) by mouth 2 (two) times a day 180 tablet 3 5 06/11/19 26 Active acetaminophen 500 mg capsuleIndicati ons:Pain Take [...] 12/05/19 Assessment & Plan (12/26/2023 11:47 AM PLANT PROTECTION GUARD): Patient is a 63 y.o. female with a history of hypertension, type 2 diabetes, and inflammatory bowel disease who is admitted from [facility] for progressive weight loss and nausea in the setting of multiple admissions for diverticulitis complicated by contained sigmoid perforation, scattered liver and spleen abscesses and adnexal mass. She was admitted to [facility] on 11/24 for further workup and [...] Patient went to the OR 12/23 with WASH DRILLER, CRS and urology for ex lap, left colectomy with end colostomy, LIBRA, BSO and ureteral stent placement. Surgery reporting source control archived. Given source control has been achieved, we are planning on 5 days of antibiotics from surgery. On assessment today, patient reports minimal use of her EXHIBITS MANAGER and that she typically has abdominal [...] 11/26/2023 Assessment & Plan (12/25/2023 12:55 PM PLANT PROTECTION GUARD): Near resolution of hepatic and splenic abscesses. No plans for repeat imaging given improvement. Continue antibiotics as described elsewhere. Pulmonary nodule 11/26/2023 Assessment & Plan (12/26/2023 11:38 AM PLANT PROTECTION GUARD): Patient is a 63 y.o. female with a history of hypertension, type 2 diabetes, and inflammatory bowel disease who is admitted from Gastroenterology Clinic for progressive weight loss and nausea in the setting of multiple admissions for diverticulitis complicated by contained sigmoid perforation, scattered liver and spleen abscesses and adnexal mass. She was admitted to [facility] on 11/24 for further workup and [...] 11/26/2023 Assessment & Plan (12/25/2023 12:55 PM PLANT PROTECTION GUARD): Near resolution of hepatic and splenic abscesses. [...] Never Tobacco Cessation:Counseling Given: Not Answered [facility] Utilities Answer Date Recorded In the past 12 months has cuaQea, haystagg, oil, or water [employer] threatened to shut off services in your [...] often do you attend chur ch or alevism services? 1 to 4 times per year 07/19/2024 Do you belong to any clubs o r organizations such as scientologist groups, unions, fraternal or athletic groups, or [...] any time in the past 12 m [facility], were you homeless or living in a long-term (including now)? No 07/19/2024 Personal Safety Answer [...] 08/17/2024 1:36 PM CDT Plan of Treatment Not on file Medical Devices Implanted Type Area Outside Sales Advertising Executive Device Identifier Shelf Expiration Date Model / Serial / Lot [employer] Stent Ureteral Set Double Pigtail Radiopaque Tip Universa [id number] Polyurethane Hydrophilic Coated [id number] - [id number] Implanted:Qty: 1 on 07/16/2024 at [facility] Left: Ureter [employer] 01/27/2027 [id number] / / [id number] Procedures Procedure Name Priority Date/Time Associated Diagnosis [...] DEVICE Routine 07/16/2024 8 :17 AM CDT [place] AN PROCEDURE PLACEHOLDER Routine 07/16/2024 8:10 AM CDT [place] AN ELECTIVE ENDOTRACHEAL AIRWAY Routine 07/16/2024 8:10 [...] * POCT glucose (07/20/2024 8:24 AM CDT) Pathologist [facility] Glucose, POC 122 70 - 199 mg/dL Comment: Interpretive Data Glucose is assumed to be non-fasting. Fasting Glucose reference ranges are: 0 - 150 years: 70 mg/dL - 99 mg/dL Current interpretive data was last revised on 2013. POC Performer [id number] GO JARAMILLO POC Device Number [id number] GO JARAMILLO Blood 07/20/2024 8:24 AM CDT 07/20/2024 8:24 AM CDT us Yo Ferreira MD LAB POCT ORDERABLES - DEVICE Final Result [facility] [address] [facility]. [place] [address] * (ABNORMAL) CBC without differential (07/19/2024 9:10 PM CDT) WBC 4.86 3.80 - 9.90 K/cumm Hgb 7.9(L) 11.9 - 15.5 g/dL GO JARAMILLO Hct 23.5(L) 35.6 - 45.5 % [facility] Plt 136(L) 150 - 400 K/cumm [facility] MPV 9.4 9.1 - 12.3 fL GO ROBERTSERVANDO RBC 2.57(L) 3.90 - 5.20 M/cumm GO JARAMILLO MCV 91.4 81.3 - 96.4 fL [facility] MCH 30.7 27.1 - 33.3 pg [facility] MCHC 33.6 32.3 - 35.7 g/dL [facility] RDW CV 12.7 11.1 - 14.9 % [facility] RDW SD 42.1 35.7 - 48.1 fL [facility] NRBC abs 0.00 0.00 - 0.01 K/cumm [facility] Blood 07/19/2024 9:10 PM CDT 07/19/2024 9:20 PM CDT Yo Ferreira MD LAB BLOOD ORDERABLES Final R esult Performing Organization Address [facility] Co de Phone Number [facility] [address] [facility] [place] [address] * POCT glucose (07/19/2024 8:24 PM CDT) [facility] Glucose, POC 130 70 - 199 mg/dL Comment: Interpretive Data Glucose is assumed to be non-fasting. Fasting Glucose reference ranges are: 0 - 150 years: 70 mg/dL - 99 mg/dL Current interpretive data was last revised on 2013. POC Performer [id number] [facility] POC Device Number [id number] [facility] Blood 07/19/2024 8:24 PM CDT 07/19/2024 8:24 PM CDT Yo Ferreira MD LAB POCT ORDERABLES - DEVICE Final Result Performing Organization Address City/[facility]/ZIP Co de Phone Number [facility] [address] [facility] [place] [address] * POCT glucose (07/19/2024 4:58 PM CDT) Glucose, POC 135 70 - 199 mg/dL Comment: Interpretive Data Glucose is assumed to be non-fasting. Fasting Glucose reference ranges are: 0 - 150 years: 70 mg/dL - 99 mg/dL Current interpretive data was last revised on 2013. POC Performer [id number] [facility] POC Device Number [id number] [facility] Blood 07/19/2024 4:58 PM CDT 07/19/2024 4:58 PM CDT Yo Ferreira MD LAB POCT ORDERABLES - DEVICE Final Result Performing Organization Address [facility] de Phone Number [facility] [address] [facility]. [facility] [place] [address] * POCT glucose (07/19/2024 12:46 PM CDT) Glucose, POC 96 70 - 199 mg/dL Comment: Interpretive Data Glucose is assumed to be non-fasting. Fasting Glucose reference ranges are: 0 - 150 years: 70 mg/dL - 99 mg/dL Current interpretive data was last revised on 2013. POC Performer [id number] [facility] POC Device Number [id number] [facility] Blood 07/19/2024 12:4 6 PM CDT 07/19/2024 12:46 PM CDT Yo Ferreira MD LAB POCT ORDERABLES - DEVICE Final Result Performing Organization Address [facility] de Phone Number [facility] [address] [facility] [place] [address] * (ABNORMAL) CBC without differential (07/19/2024 8:57 AM CDT) Pathologist [facility] WBC 5.10 3.80 - 9.90 K/cumm Hgb 8.6(L) 11.9 - 15.5 g/dL GO JARAMILLO Hct 25.2(L) 35.6 - 45.5 % GO JARAMILLO Plt 130(L) 150 - 400 K/cumm GO JARAMILLO MPV 9.3 9.1 - 12.3 fL GO JARAMILLO RBC 2.71(L) 3.90 - 5.20 M/cumm GO JARAMILLO MCV 93.0 81.3 - 96.4 fL GO [facility]ERT[facility]O MCH 31.7 27.1 - 33.3 pg GO JARAMILLO MCHC 34.1 32.3 - 35.7 g/dL GO ROBERTSERVANDO RDW CV 12.9 11.1 - 14.9 % GO ROBERTSERVANDO RDW SD 44.0 35.7 - 48.1 fL GO JARAMILLO NRBC abs 0.00 0.00 - 0.01 K/cumm GO JARAMILLO Blood 07/19/2024 8:57 AM CDT 07/19/2024 9:04 AM CDT us Kylie Huerta NP LAB BLOOD ORDERABLES Final Resul t GO JARAMILLO [address] [facility]. [place] [address] * POCT glucose (07/19/2024 8:00 AM CDT) [facility] Signature Glucose, POC 100 70 - 199 mg/dL Comment: Interpretive Data Glucose is assumed to be non-fasting. Fasting Glucose reference ranges are: 0 - 150 years: 70 mg/dL - 99 mg/dL Current interpretive data was last revised on 2013. POC Performer [id number] GO SORTO POC Device Number [id number] GO JARAMILLO Blood 07/19/2024 8:00 AM CDT 07/19/2024 8:00 AM CDT us Yo Ferreira MD LAB POCT ORDERABLES - DEVICE Final Result Performing Organization Address [facility] de Phone Number GO ROBERTCH [address] [address] [employer] [place], [place] [id number] * (ABNORMAL) eGFR (07/18/2024 8:43 PM CDT) [...] ORDERABLES Final R esult Performing Organization Address [facility] Co de Phone Number GO ROBERTW[facility] [address] [facility] Center[facility] [address] * Differential, auto (07/18/2024 8:43 PM CDT) Neutrophil abs 4.04 1.50 - 6.50 K/cumm Imm gran abs 0.03 0.00 - 0.10 K/cumm C[facility]ER [facility] Lymphocyte abs 1.20 0.80 - 3.30 K/cumm CERYASMINE [facility] Monocyte abs 0.41 0.20 - 0.80 K/cumm GO ROBERTWCH Eosinophil abs 0.32 0.00 - 0.50 K/cumm [facility] Basophil abs 0.01 0.00 - 0.10 K/cumm [facility] Neutrophil pct 67.2 % GO SORTO Comment: Interpretive Data Percent cell count reference ranges are not reported, since discordance with absolute values may lead to misinterpretation of CBC data. Current Interpretive Data was last revised on 2017. Imm gran pct 0.5 % GO SORTO Comment: Interpretive Data Percent cell count reference ranges are not reported, since discordance with absolute values may lead to misinterpretation of CBC data. Current Interpretive Data was last revised on 2017. Lymphocyte pct 20.0 % GO JARAMILLO Comment: Interpretive Data Percent cell count reference ranges are not reported, since discordance with absolute values may lead to misinterpretation of CBC data. Current Interpretive Data was last revised on 2017. Monocyte pct 6.8 % GO JARAMILLO Comment: Interpretive Data Percent cell count reference ranges are not reported, since discordance with absolute values may lead to misinterpretation of CBC data. Current Interpretive Data was last revised on 2017. Eosinophil pct 5.3 % [facility] Comment: Interpretive Data Percent cell count reference ranges are not reported, since discordance with absolute values may lead to misinterpretation of CBC data. Current Interpretive Data was last revised on 2017. Basophil pct 0.2 % GO SORTO Comment: Interpretive Data Percent cell count reference ranges are not reported, since discordance with absolute values may lead to misinterpretation of CBC data. Current Interpretive Data was last revised on 2017. Blood 07/18/2024 8:43 PM CDT 07/18/2024 8:45 PM CDT us Yo Ferreira MD LAB BLOOD ORDERABLES Final R esult GO [facility]ERTW[facility] [address] [facility]. [place] [address] * (ABNORMAL) CBC with auto differential (07/18/2024 8:43 PM CDT) [facility] WBC 6.01 3.80 - 9.90 K/cumm Hgb 7.7(L) 11.9 - 15.5 g/dL [facility] Hct 22.3(L) 35.6 - 45.5 % [facility] BJW Plt 112(L) 150 - 400 K/cumm [facility] MPV 8.9(L) 9.1 - 12.3 fL [facility] RBC 2.41(L) 3.90 - 5.20 M/cumm [facility] BJW MCV 92.5 81.3 - 96.4 fL [facility] MCH 32.0 27.1 - 33.3 pg [facility] MCHC 34.5 32.3 - 35.7 g/dL [facility] BJW RDW CV 12.9 11.1 - 14.9 % [facility] RDW SD 43.4 35.7 - 48.1 fL [facility] NRBC abs 0.00 0.00 - 0.01 K/cumm [facility] BJW Blood 07/18/2024 8:43 PM CDT 07/18/2024 8:45 PM CDT Yo Ferreira MD LAB BLOOD ORDERABLES Final R esult Performing Organization Address [facility] de Phone Number [facility] ROBERTCH [address] [place] [address] * (ABNORMAL) Phosphorus (07/18/2024 8:43 PM CDT) [facility] Phosphorus, pl 1.9(L) 2.3 - 4.5 mg/dL Blood 07/18/2024 8:43 PM CDT 07/18/2024 8:45 PM CDT Yo Ferreira MD LAB BLOOD ORDERABLES Final R esult Performing Organization Address City/[facility] Co de Phone Number [facility] [address] [place] [address] * Magnesium (07/18/2024 8:43 PM CDT) Magnesium 2.1 1.4 - 2.5 mg/dL Comment: Reference Data. Reference values for Labor and Delivery patients: < or = 0.7 mg/dL to > or = 7.3 mg/dL Current reference data last reviewd on 11/16/2014. Blood 07/18/2024 8:43 PM CDT 07/18/2024 8:45 PM CDT us Yo Ferreira MD LAB BLOOD ORDERABLES Final R esult [facility] [address] [facility]. [place] [address] * (ABNORMAL) Basic metabolic panel (07/18/2024 8:43 PM CDT) Pathologist [facility] Sodium 139 135 - 145 mmol/L Potassium, pl 3.8 3.3 - 4.9 mmol/L [facility] Chloride 107 97 - 110 mmol/L [facility] CO2 23 22 - 32 mmol/L [facility] Anion gap 9 2 - 15 mmol/L [facility] BUN 14 6 - 25 mg/dL [facility] Creatinine 1.10 0.60 - 1.10 mg/dL [facility] Glucose 131 70 - 199 mg/dL [facility] Comment: Interpretive Data Fasting glucose >/= 126 [...] 2022. Calcium 8.1(L) 8.5 - 10.3 mg/dL [facility] Blood 07/18/2024 8:43 PM CDT 07/18/2024 8:45 PM CDT Yo Ferreira MD LAB BLOOD ORDERABLES Final R esult Performing Organization Address [facility] de Phone Number GO ROBERTCH [address] [facility] [place] [address] * POCT glucose (07/18/2024 8:21 PM CDT) Glucose, POC 138 70 - 199 mg/dL Comment: Interpretive Data Glucose is assumed to be non-fasting. Fasting Glucose reference ranges are: 0 - 150 years: 70 mg/dL - 99 mg/dL Current interpretive data was last revised on 2013. POC Performer [id number] GO [employer] POC Device Number [id number] GO YESICAAhometoSERVANDO Blood 07/18/2024 8:21 PM CDT 07/18/2024 8:21 PM CDT Yo Ferreira MD LAB POCT ORDERABLES - DEVICE Final Result Performing Organization Address [facility] Phone Number GO ROBERTCH [address] [facility] [place] [address] * POCT glucose (07/18/2024 4:46 PM CDT) Glucose, POC 135 70 - 199 mg/dL Comment: Interpretive Data Glucose is assumed to be non-fasting. Fasting Glucose reference ranges are: 0 - 150 years: 70 mg/dL - 99 mg/dL Current interpretive data was last revised on 2013. POC Performer [id number] [employer] POC Device Number [id number] CERYASMINE [employer]SERVANDO Blood 07/18/2024 4:46 PM CDT 07/18/2024 4:46 PM CDT Yo Ferreira MD LAB POCT ORDERABLES - DEVICE Final Result Performing Organization Address City/[facility]/ZIP Co de Phone Number GO ROBERTWCH [address] [facility] [place] [address] * POCT glucose (07/18/2024 11:46 AM CDT) Glucose, POC 140 70 - 199 mg/dL Comment: Interpretive Data Glucose is assumed to be non-fasting. Fasting Glucose reference ranges are: 0 - 150 years: 70 mg/dL - 99 mg/dL Current interpretive data was last revised on 2013. POC Performer [id number] [employer] POC Device Number [id number] [facility] Blood 07/18/2024 11:4 6 AM CDT 07/18/2024 11:46 AM CDT Yo Ferreira MD LAB POCT ORDERABLES - DEVICE Final Result Performing Organization Address [facility] Phone Number GO ROBERTWCH [address] [facility]. [facility] [place] [address] * POCT glucose (07/18/2024 8:43 AM CDT) Glucose, POC 136 70 - 199 mg/dL Comment: Interpretive Data Glucose is assumed to be non-fasting. Fasting Glucose reference ranges are: 0 - 150 years: 70 mg/dL - 99 mg/dL Current interpretive data was last revised on 2013. POC Performer [id number] [employer] POC Device Number [id number] [facility]AMP[facility] Blood 07/18/2024 8:43 AM CDT 07/18/2024 8:43 AM CDT Yo Ferreira MD LAB POCT ORDERABLES - DEVICE Final Result Performing Organization Address [facility] de Phone Number GO B[facility] [address] [facility] [place] [address] * (ABNORMAL) eGFR (07/17/2024 9:15 PM CDT) Pathologist [facility] eGFR 41(L) >=60 mL/min/1. 73 [...] LAB BLOOD ORDERABLES Final R esult [facility] [address] [facility]. [place] [address] * (ABNORMAL) CBC without differential (07/17/2024 9:15 PM CDT) Pathologist [facility] WBC 7.25 3.80 - 9.90 K/cumm Hgb 7.9(L) 11.9 - 15.5 g/dL [facility] Hct 23.4(L) 35.6 - 45.5 % [facility] Plt 118(L) 150 - 400 K/cumm [facility] MPV 8.9(L) 9.1 - 12.3 fL [facility] RBC 2.54(L) 3.90 - 5.20 M/cumm [facility] MCV 92.1 81.3 - 96.4 fL [facility] MCH 31.1 27.1 - 33.3 pg [facility]ERNER [facility] MCHC 33.8 32.3 - 35.7 g/dL [facility] RDW CV 13.0 11.1 - 14.9 % [facility] RDW SD 43.5 35.7 - 48.1 fL [facility] NRBC abs 0.00 0.00 - 0.01 K/cumm [facility] Blood 07/17/2024 9:15 PM CDT 07/17/2024 9:17 PM CDT Narrative [facility] - 07/17/2024 9:20 PM CDT Obtain POD 1 at 2200. us Yo Ferreira MD LAB BLOOD ORDERABLES Final R esult [facility] [address] [facility]. [place] [address] * (ABNORMAL) Basic metabolic panel (07/17/2024 9:15 PM CDT) Sodium 136 135 - 145 mmol/L Potassium, pl 4.1 3.3 - 4.9 mmol/L [facility] Chloride 105 97 - 110 mmol/L [facility] CO2 22 22 - 32 mmol/L [facility] Anion gap 10 2 - 15 mmol/L [facility] BUN 21 6 - 25 mg/dL [facility] Creatinine 1.40(H) 0.60 - 1.10 mg/dL [facility] Glucose 182 70 - 199 mg/dL [facility] Comment: Interpretive Data Fasting glucose >/= 126 [...] ORDERABLES Final R esult Performing Organization Address [facility] de Phone Number [facility] [address] [facility] [place] [address] * POCT glucose (07/17/2024 8:49 PM CDT) Glucose, POC 188 70 - 199 mg/dL Comment: Interpretive Data Glucose is assumed to be non-fasting. Fasting Glucose reference ranges are: 0 - 150 years: 70 mg/dL - 99 mg/dL Current interpretive data was last revised on 2013. POC Performer [id number] [facility] POC Device Number [id number] [facility] Blood 07/17/2024 8:49 PM CDT 07/17/2024 8:49 PM CDT Yo Ferreira MD LAB POCT ORDERABLES - DEVICE Final Result Performing Organization Address [facility] Center/[facility] de Phone Number GO ROBERTCH [address] [facility] [place] [address] * POCT glucose (07/17/2024 5:13 PM CDT) Glucose, POC 152 70 - 199 mg/dL Comment: Interpretive Data Glucose is assumed to be non-fasting. Fasting Glucose reference ranges are: 0 - 150 years: 70 mg/dL - 99 mg/dL Current interpretive data was last revised on 2013. POC Performer [id number] [facility] POC Device Number [id number] [facility] Blood 07/17/2024 5:13 PM CDT 07/17/2024 5:13 PM CDT Yo Ferreira MD LAB POCT ORDERABLES - DEVICE Final Result Performing Organization Address [facility] de Phone Number GO SORTOCH [address] [place] [address] * POCT glucose (07/17/2024 12:45 PM CDT) Glucose, POC 174 70 - 199 mg/dL Comment: Interpretive Data Glucose is assumed to be non-fasting. Fasting Glucose reference ranges are: 0 - 150 years: 70 mg/dL - 99 mg/dL Current interpretive data was last revised on 2013. POC Performer [id number] SABIHAYASMINE [employer] POC Device Number [id number] GO ROBERTWCH Blood 07/17/2024 12:4 5 PM CDT 07/17/2024 12:45 PM CDT Yo Ferreira MD LAB POCT ORDERABLES - DEVICE Final Result Performing Organization Address [facility] de Phone Number GO ROBERTWCH [address] [place] [address] * POCT glucose (07/17/2024 8:08 AM CDT) Glucose, POC 171 70 - 199 mg/dL Comment: Interpretive Data Glucose is assumed to be non-fasting. Fasting Glucose reference ranges are: 0 - 150 years: 70 mg/dL - 99 mg/dL Current interpretive data was last revised on 2013. POC Performer [id number] CERNER [employer] POC Device Number [id number] GO ROBERTWCH Blood 07/17/2024 8:08 AM CDT 07/17/2024 8:08 AM CDT Yo Ferreira MD LAB POCT ORDERABLES - DEVICE Final Result Performing Organization Address City/[facility]/ZIP Co de Phone Number GO BJWCH [address] [address] [facility] [place] [address] * POCT glucose (07/17/2024 1:55 AM CDT) Glucose, POC 189 70 - 199 mg/dL Comment: Interpretive Data Glucose is assumed to be non-fasting. Fasting Glucose reference ranges are: 0 - 150 years: 70 mg/dL - 99 mg/dL Current interpretive data was last revised on 2013. POC Performer [id number] [facility] POC Device Number [id number] [facility] FansUniteMOR[facility] Blood 07/17/2024 1:55 AM CDT 07/17/2024 1:55 AM CDT Yo Ferreira MD LAB POCT ORDERABLES - DEVICE Final Result Performing Organization Address City/State/[facility] Co de Phone Number [facility] [address] [facility] [place] [address] * (ABNORMAL) eGFR (07/16/2024 10:07 PM CDT) [...] ORDERABLES Final R esult Performing Organization Address [facility] de Phone Number [facility] [address] [facility] [place] [address] * (ABNORMAL) Protime-INR (07/16/2024 10:07 PM CDT) PT 13.3(H) 9.7 - 13.0 sec INR 1.23(H) 0.90 - 1.20 GO SORTO Comment: Interpretive data Oral anticoagulant therapeutic ranges: Venous thromboembolism prophylaxis or treatment: 2.0-3.0 CARDIOLOGY Standard range: 2.0-3.0 High-intensity range: 2.5-3.5 Refer to indication-specific guidelines for appropriate target ranges for prosthetic heart valve replacement. Current interpretive data was last revised on 2019. Blood 07/16/2024 10:0 7 PM CDT 07/16/2024 10:26 PM CDT Yo Ferreira MD LAB BLOOD ORDERABLES Final R ult Performing Organization Address [facility] de Phone Number GO ROBERTWCH [address] [facility] [place] [address] * (ABNORMAL) CBC without differential (07/16/2024 10:07 PM CDT) WBC 13.73(H) 3.80 - 9.90 K/cumm Hgb 9.0(L) 11.9 - 15.5 g/dL [facility] Hct 27.3(L) 35.6 - 45.5 % [facility] Plt 151 150 - 400 K/cumm [facility] MPV 9.4 9.1 - 12.3 fL [facility] RBC 2.86(L) 3.90 - 5.20 M/cumm [facility] MCV 95.5 81.3 - 96.4 fL [facility] MCH 31.5 27.1 - 33.3 pg [facility] MCHC 33.0 32.3 - 35.7 g/dL [facility] RDW CV 12.8 11.1 - 14.9 % [facility] RDW SD 44.4 35.7 - 48.1 fL [facility] NRBC abs 0.00 0.00 - 0.01 K/cumm [facility] Blood 07/16/2024 10:0 7 PM CDT 07/16/2024 10:26 PM CDT Narrative [facility] - 07/16/2024 10:35 PM CDT Obtain POD 0 at 2000. us Yo Ferreira MD LAB BLOOD ORDERABLES Final R esult [facility] [address] [facility]. [place] [address] * (ABNORMAL) Basic metabolic panel (07/16/2024 10:07 PM CDT) Sodium 134(L) 135 - 145 mmol/L Potassium, pl 4.4 3.3 - 4.9 mmol/L [facility] Chloride 100 97 - 110 mmol/L [facility] CO2 19(L) 22 - 32 mmol/L [facility] Anion gap 16(H) 2 - 15 mmol/L [facility] BUN 28(H) 6 - 25 mg/dL [facility] Creatinine 1.40(H) 0.60 - 1.10 mg/dL [facility] Glucose 213(H) 70 - 199 mg/dL [facility] Comment: Interpretive Data Fasting glucose >/= 126 [...] CDT 07/16/2024 10:26 PM CDT Narrative GO NOREENSERVANDO - 07/16/2024 10:58 PM CDT Obtain POD 0 at 2000. Yo Ferreira MD LAB BLOOD ORDERABLES Final R esult Performing Organization Address City/[facility]/ZIP Co de Phone Number [facility] [address] [place] [address] * (ABNORMAL) POCT glucose (07/16/2024 9:22 PM CDT) Pathologist [facility] Glucose, POC 230(H) 70 - 199 mg/dL Comment: Interpretive Data Glucose is assumed to be non-fasting. Fasting Glucose reference ranges are: 0 - 150 years: 70 mg/dL - 99 mg/dL Current interpretive data was last revised on 2013. POC Performer [id number] GO JARAMILLO POC Device Number [id number] GO JARAMILLO Blood 07/16/2024 9:22 PM CDT 07/16/2024 9:22 PM CDT Yo Ferreira MD LAB POCT ORDERABLES - DEVICE Final Result Performing Organization Address City/[facility]/ZIP Co de Phone Number GO [facility] [address] [facility] [place] [address] * (ABNORMAL) eGFR (07/16/2024 1:37 PM CDT) [facility] eGFR 50(L) >=60 mL/min/1. 73 m2 Comment: [...] NP LAB BLOOD ORDERABLES Final Resul t [facility] [address] [facility]. [place] [address] * (ABNORMAL) CBC without differential (07/16/2024 1:37 PM CDT) WBC 11.56(H) 3.80 - 9.90 K/cumm Hgb 10.4(L) 11.9 - 15.5 g/dL [facility] Hct 30.4(L) 35.6 - 45.5 % [facility] Plt 148(L) 150 - 400 K/cumm [facility] MPV 8.9(L) 9.1 - 12.3 fL [facility] RBC 3.33(L) 3.90 - 5.20 M/cumm [facility] MCV 91.3 81.3 - 96.4 fL [facility] MCH 31.2 27.1 - 33.3 pg [facility] MCHC 34.2 32.3 - 35.7 g/dL [facility] RDW CV 12.4 11.1 - 14.9 % [facility] RDW SD 41.3 35.7 - 48.1 fL [facility] NRBC abs 0.00 0.00 - 0.01 K/cumm CERNER W Blood 07/16/2024 1:37 PM CDT 07/16/2024 1:41 PM CDT us Kylie Huerta DEFLECTOR OPERATOR LAB BLOOD ORDERABLES Final Resul t Performing Organization Address City/[facility]/ZIP Co de Phone Number GO [facility] [address] [facility] [place] [address] * (ABNORMAL) Basic metabolic panel (07/16/2024 1:37 PM CDT) Pathologist [facility] Sodium 139 135 - 145 mmol/L Potassium, pl 3.9 3.3 - 4.9 mmol/L [facility] Chloride 104 97 - 110 mmol/L [facility] CO2 20(L) 22 - 32 mmol/L [facility] Anion gap 15 2 - 15 mmol/L [facility] BUN 26(H) 6 - 25 mg/dL [facility] Creatinine 1.20(H) 0.60 - 1.10 mg/dL [facility] Glucose 170 70 - 199 mg/dL [facility] Comment: Interpretive Data Fasting glucose >/= 126 [...] 2022. Calcium 8.2(L) 8.5 - 10.3 mg/dL [facility] Blood 07/16/2024 1:37 PM CDT 07/16/2024 1:41 PM CDT Kylie Huerta NP LAB BLOOD ORDERABLES Final Resul t GO ROBERTCH [address] [facility] [place] [address] * POCT glucose (07/16/2024 10:53 AM CDT) Glucose, POC 132 70 - 199 mg/dL Comment: Interpretive Data Glucose is assumed to be non-fasting. Fasting Glucose reference ranges are: 0 - 150 years: 70 mg/dL - 99 mg/dL Current interpretive data was last revised on 2013. POC Performer [id number] [employer] POC Device Number [id number] [facility] Blood 07/16/2024 10:5 3 AM CDT 07/16/2024 10:53 AM CDT Yo Ferreira MD LAB POCT ORDERABLES - DEVICE Final Result Performing Organization Address [facility] Phone Number GO ROBERTCH [address] [facility] [place] [address] * POCT glucose (07/16/2024 10:27 AM CDT) Glucose, POC 129 70 - 199 mg/dL Comment: Interpretive Data Glucose is assumed to be non-fasting. Fasting Glucose reference ranges are: 0 - 150 years: 70 mg/dL - 99 mg/dL Current interpretive data was last revised on 2013. POC Performer [id number] [employer] POC Device Number [id number] [facility] Blood 07/16/2024 10:2 7 AM CDT 07/16/2024 10:27 AM CDT Yo Ferreira MD LAB POCT ORDERABLES - DEVICE Final Result Performing Organization Address [facility] de Phone Number GO ROBERTCH [address] [facility] [place] [address] * Surgical pathology (07/16/2024 9:28 AM CDT) Tissue (Rectum, Resection) 07/16/2024 9:28 AM CDT Tissue specimen (specimen) (Colon, Colostomy Stoma) 07/16/2024 10:19 AM CDT Narrative PATHOLOGY [facility] - 07/26/2024 12:46 PM CDT EPIC results best viewed via link to PDF [facility] Carmen Vickers [facility] [place] [address] Note to Patients: This report may contain [...] Gender: F : 1960 (Age: 64) Address: [address] [place], [place] [id number] Hospital #: [id number] Taken:07/16/2024 Received:07/16/2024 Reported: 07/26/2024 Patient Type: [facility] EP INPAT Client [facility] Service: Surgery Location: Physician(s): Monserrat Rubio M.D. Diagnosis: A. Rectum, resection - Rectal wall with cryptitis, erosion and prominent lymphoid aggregates; see comment - Negative for granuloma, dysplasia, and viral inclusions - Five benign lymph nodes B. Colostomy, stoma, takedown - Bowel wall with reactive epithelial changes and mild hemorrhage - No viable squamous mucosa identified (additional sections submitted) [facility]/07/26/2024 12:46 By this signature, I attest that [...] as follows: A1-A2 Resection margins, shaved, A3 Touch Up Painter Hand sections of rectal mucosa, A4 Lymph [...] interpretation for this case was performed at [facility], Department of Surgical Pathology, [address] [facility] [place], [place] [id number], [place] [address] CLIA # [id number] The performance characteristics of some immunohistochemical stains, fluorescence in-situ hybridization tests and immunophenotyping by flow cytometry cited in this report (if any) were determined by the Surgical Pathology and Flow Cytometry Departments at [facility] as part of an ongoing quality assurance coach program and in compliance with federally mandated regulations drawn from the Clinical Laboratory Improvement Act of 1988 (CLIA '). Some of these tests rely on the [...] Surgical Pathology and Flow Cytometry Departments of [facility]. It has not been cleared or approved by the U. S. Food and Drug Administration. IMAGES AND SCANNED DOCUMENTS, IF INCLUDED, ONLY VIEWABLE IN PDF VERSION OF REPORT Yo Ferreira MD LAB PATHOLOGY ORDERABLES Fin al Result Performing Organization Address City/[facility]/ZIP Co de Phone Number PATHOLOGY [facility] [phone] * POCT glucose (07/16/2024 8:17 AM CDT) Glucose, POC 86 70 - 199 mg/dL Comment: Interpretive Data Glucose is assumed to be non-fasting. Fasting Glucose reference ranges are: 0 - 150 years: 70 mg/dL - 99 mg/dL Current interpretive data was last revised on 2013. POC Performer [id number] GO JARAMILLO POC Device Number [id number] GO JARAMILLO Blood 07/16/2024 8:17 AM CDT 07/16/2024 8:17 AM CDT Yo Ferreira MD LAB POCT ORDERABLES - DEVICE Final Result Performing Organization Address City/[facility]/ZIP Co de Phone Number GO JARAMILLO [address] [facility]. [place] [address] * [place] AN ELECTIVE ENDOTRACHEAL AIRWAY, [place] AN PROCEDURE PLACEHOLDER (07/16/2024 8:10 AM CDT) Narrative aTryn Krishna CRNA - 07/16/2024 8:10 AM CDT Taryn Krishna CRNA 07/16/2024 8:11 AM Airway Patient location: OR Urgency: elective Indications for airway management: anesthesia Difficult airway: no Staff: Placed by: ELECTRIC MOTOR ASSEMBLER AND TESTER: Taryn Krishna CRNA Airway prep: Preoxygenated: yes [...] the physician's procedure / OR operative note. Alvarado Blackman DO IMG FLUOROSCOPY PROCEDURES Fin al Result [id number] * Check Sample (07/16/2024 7:42 AM CDT) ABO Rh O Positive GO JARAMILLO HCLL OTHER 07/16/2024 7:42 AM CDT 07/16/2024 8:52 AM CDT Yo Ferreira MD LAB BLOOD ORDERABLES Final R esult Performing Organization Address [facility] de Phone Number GO SORTOCH [address] [facility] Center[facility] [employer] [place], [place] [id number] * Type and screen (07/16/2024 7:18 AM CDT) Maira, indirect Negative SABIHAYASMINE [facility] ABO Rh O Positive GO [facility] Blood 07/16/2024 7:18 AM CDT 07/16/2024 7:41 AM CDT Narrative GO SORTOCH - 07/16/2024 8:51 AM CDT Has the patient had Daratumumab or Isatuximab in the past 6 months?->Unknown Bong De Santiago DO LAB BLOOD BANK TEST ORDER INO Final Result Performing Organization Address [facility] de Phone Number GO [facility] [address] [facility] Center[facility]. [facility] [employer] [place], [place] [id number] * POCT glucose (07/16/2024 6:08 AM CDT) Glucose, POC 85 70 - 199 mg/dL Comment: Interpretive Data Glucose is assumed to be non-fasting. Fasting Glucose reference ranges are: 0 - 150 years: 70 mg/dL - 99 mg/dL Current interpretive data was last revised on 2013. POC Performer [id number] GO JARAMILLO POC Device Number [id number] GO JARAMILLO Blood 07/16/2024 6:08 AM CDT 07/16/2024 6:08 AM CDT Yo Ferreira MD LAB POCT ORDERABLES - DEVICE Final Result Performing Organization Address [facility] de Phone Number GO SORTOCH [address] [facility]. [facility] [employer] [place], [place] [address] * Colonoscopy (07/15/2024 10:39 AM CDT) Anatomical Region Laterality Modality Other Narrative Procedure Note Yo Ferreira MD - 07/15/2024 10:39 AM CDT [facility] Patient Name: Farhana Russo Procedure Date: 07/15/2024 10:39 AM Date of : 1960 Admit Type: Outpatient Age: 64 Gender: Female Attending MD: Yo Ferreira M.D. Room: [facility] 02 Note Status: Finalized [...] The scope was passed under direct vision.The [id number] Endoscsope was introduced through the descending colostomy and advanced to the the cecum, identified by appendiceal orifice andileocecal valve. The colonoscopy was performed with ease. The patient tolerated the procedure well. The qualityof the bowel preparation was excellent. The quality of the bowel preparation was evaluated using the BBPS ([place] Bowel Preparation Scale) with scores of:Right Colon [...] On: 07/15/2024 10:39 AM Recognized by the [place] [employer] for promoting quality [...] Electronically signed by: Brian Dawkins M.D. Gildardo uJng MD IMG CT PROCEDURES Final Resul t * POCT glucose (07/15/2024 8:37 AM CDT) [facility] Glucose, POC 106 70 - 199 mg/dL Blood 07/15/2024 8:37 AM CDT 07/15/2024 8:37 AM CDT Yo Ferreira MD LAB POCT ORDERABLES - DEVICE Final Result GO ROBERT [facility] Department of Laboratories [place], [place] [id number] * (ABNORMAL) eGFR (07/02/2024 1:20 PM CDT) [facility] eGFR 41(L) >=60 mL/min/1. 73 m2 Comment: [...] LAB BLOOD ORDERABLES Final R esult [facility] Department [place] [address] * (ABNORMAL) Urinalysis reflex to microscopic (07/02/2024 1:20 PM CDT) Color, ur Yellow Yellow Clarity, ur Clear Clear [facility] Specific gravity, ur 1.021 1.003 - 1.030 [facility] pH, urine 6.0 [facility] Comment: Interpretive Data U rine pH is affected by diet, medications, systemic acid-base disturbances, and renal tubular function. pH may affect urinary stone formation. For example, urine pH below 6.0 may help reduce the tendency for calcium phosphate stones and pH greater than 6.0 may reduce the tendency for uric acid stone formation. Source: [employer] Current Interpretive Data was last revised on 2017 Protein, ur ql 1+(A) Negative [facility] Glucose, ur ql Negative Negative [facility] Ketones, ur Negative Negative [facility] Bilirubin, ur Negative Negative [facility] Blood, ur 2+(A) Negative [facility] Urobilinogen, ur <2.0 <2.0 mg/dL [facility] Nitrite, ur Negative Negative [facility] Leukocyte esterase, ur 2+(A) Negative [facility] UA reflex comment Reflex to microscopic UA will be performed. [facility] Urine 07/02/2024 1:20 PM CDT 07/02/2024 2:26 PM CDT Bong De Santiago LAB URINE ORDERABLES Samantha l Result Performing Organization Address [facility] de Phone Number [facility] [place] [address] * (ABNORMAL) Urinalysis, microscopic only (07/02/2024 1:20 PM CDT) WBC, ur 11-20(A) 0 - 5 /HPF RBC, ur 21-50(A) 0 - 2 /HPF [facility] Epithelial cells, squamous, ur 1-5 0 - 5 /HPF [facility] Mucous, ur Present(A) [facility] Urine 07/02/2024 1:20 PM CDT 07/02/2024 2:26 PM CDT Bong De Santiago LAB URINE ORDERABLES Samantha l Result Performing Organization Address [facility] Co de Phone Number [facility] [place] [address] * (ABNORMAL) CBC without differential (07/02/2024 1:20 PM CDT) WBC 4.52 3.80 - 9.90 K/cumm Hgb 11.2(L) 11.9 - 15.5 g/dL [facility] Hct 32.5(L) 35.6 - 45.5 % [facility] Plt 155 150 - 400 K/cumm [facility] MPV 9.5 9.1 - 12.3 fL [facility] RBC 3.64(L) 3.90 - 5.20 M/cumm [facility] MCV 89.3 81.3 - 96.4 fL [facility] MCH 30.8 27.1 - 33.3 pg [facility] MCHC 34.5 32.3 - 35.7 g/dL [facility] RDW CV 12.6 11.1 - 14.9 % [facility] RDW SD 41.2 35.7 - 48.1 fL [facility] NRBC abs 0.00 0.00 - 0.01 K/cumm [facility] Blood 07/02/2024 1:20 PM CDT 07/02/2024 2:30 PM CDT Bong De Santiago DO LAB BLOOD ORDERABLES Samantha l Result [facility] [place] [address] * (ABNORMAL) Basic metabolic panel (07/02/2024 1:20 PM CDT) Sodium 138 135 - 145 mmol/L Potassium, pl 4.1 3.3 - 4.9 mmol/L [facility] Chloride 103 97 - 110 mmol/L [facility] CO2 28 22 - 32 mmol/L [facility] Anion gap 7 2 - 15 mmol/L [facility] BUN 30(H) 6 - 25 mg/dL [facility] Creatinine 1.42(H) 0.60 - 1.10 mg/dL [facility] Glucose 105 70 - 199 mg/dL [facility] Comment: Interpretive Data Fasting glucose >/= [...] 2022. Calcium 9.1 8.5 - 10.3 mg/dL [facility] Blood 07/02/2024 1:20 PM CDT 07/02/2024 2:49 PM CDT Narrative GO VASQUEZ - 07/02/2024 3:18 PM CDT This order is is required for all post operative patients receiving lovenox. us Yo Ferreira MD LAB BLOOD ORDERABLES Final R esult [facility] [place] [address] * SCAN - LABS (06/16/2024) us Provider Scanning Final Result * (ABNORMAL) [employer] [...] 06/09/2024 9:10 AM CDT Performed at: - [address] [id number] [employer] Consultant: Kelsey Tran PhD, Phone: [phone] us Colby Curtis MD LAB URINE ORDERABLES Final Resul t [facility] - 01 * (ABNORMAL) Lipid panel [...] on 2023. Non-HDL Cholesterol 44 mg/dL [facility] Comment: Interpretive Data Ages < or [...] revised on 2017. Chol/HDL ratio 3 [facility] Blood 12/04/2023 5:24 PM CDT 12/04/2023 5:34 PM CDT Narrative [facility] - 12/04/2023 7:03 PM CDT This lipid panel was automatically ordered due to a significant change in Troponin. The dietary status of the patient at the collection time should be correlated with the lipid results. us Álvaro Radford MD LAB BLOOD ORDERABLES Final Result [facility] [place] [address] * (ABNORMAL) Hemoglobin A1c (11/04/2023 7:56 AM CDT) Hgb A1C 5.7(H) 4.0 - 5.6 % Estimated Average Glucose 117 mg/dL [facility] Comment: The ADA recommends reporting an [...] ORDERABLES F inal Result GO ROBERTH [facility] [place] [address] * Hepatitis C antibody Blood (10/27/2023 9:30 [...] last revised on 2019. Testing performed by: , [address] [place] [address]., [id number] Blood 10/27/2023 9:30 AM CDT 10/27/2023 12:43 PM CDT Gildardo Jung MD LAB MICROBIOLOGY - GENERAL OR DERABLES Edited Result - Final Performing Organization Address [facility] Co de Phone Number GO BJWCH [address] [facility] [place] [address] from Last 3 Months or Most Recently Relevant to Health Maintenance Insurance [facility] Advance Directives For more information, please contact: [phone] * Full Code (Latest Code Status on [...] 5:00 PM 11/06/2023 7:28 PM Care Teams Assistant Teacher Primary Relationship Specialty Start Date End Date Kaushal Heath MD [address] [place] [address] PCP - General Internal Medicine 10/30/23 Bigg Delarosa MD [address] [place] [address] Referring Physician Gastroenterology 10/15/23 Jefe Choe MD [address] [place] [address] Referring Physician Gastroenterology 10/15/23 Melissa Rhodes MD [address] [facility], [address] [address] Consulting Physician Gynecologic Oncology 10/30/23
--- OUTSIDE RECORDS SUMMARY | 2024-09-02 08:04 | XMS_ITS ---
Author Organization [facility] Address [address] [place] [address] Care Team Providers Care Bulwark Carpenter Name Role Phone Bigg Delarosa MD Unavailable [phone] Jefe Choe MD Unavailable + Melissa Rhodes MD Unavailable [phone] Kaushal Heath MD Primary Care Provider + [phone] Active Problems Problem Noted Date Diagnosed Date Ileostomy present 07/19/2024 Pyelonephritis 07/19/2024 Ureteral stent present 07/19/2024 Staghorn calculus 07/16/2024 Diverticulitis 05/10/2024 Fever 12/09/2023 Ulcerative pancolitis with complication 12/05/19 Assessment & Plan (12/26/2023 11:47 AM CHEMISTRY INSTRUCTOR): Patient is a 63 y.o. female with [...] Patient went to the OR 12/23 with CERTIFIED PHYSICIAN ASSISTANT, CRS and urology for ex lap, left colectomy with end colostomy, LIBRA, BSO and ureteral stent placement. Surgery reporting source control archived. Given source control has been achieved, we are planning on 5 days of antibiotics from surgery. On assessment today, patient reports minimal use of her TRANSMISSION SYSTEM OPERATOR and that she typically has abdominal discomfort [...] 11/26/2023 Assessment & Plan (12/25/2023 12:55 PM CHEMISTRY INSTRUCTOR): Near resolution of hepatic and splenic abscesses. No plans for repeat imaging given improvement. Continue antibiotics as described elsewhere. Pulmonary nodule 11/26/2023 Assessment & Plan (12/26/2023 11:38 AM CHEMISTRY INSTRUCTOR): Patient is a 63 y.o. female with [...] 11/26/2023 Assessment & Plan (12/25/2023 12:55 PM CHEMISTRY INSTRUCTOR): Near resolution of hepatic and splenic abscesses. [...] Lifetime Dose Automatic Entry Manual Entr y Fluoro Time 0.158 minutes 0.158 minutes 0 minutes Air kerma at the reference point (Ka,r) 1.184 mGy 1 .184 mGy 0 mGy DLP 5,845 mGycm 5,845 mGycm 0 mGycm Resolved Problems Problem Noted Date Diagnosed Date Resolved Date Colostomy in place 01/13/2024 Moderate protein-calorie malnutrition 10/03/2023 11/25/2023 Abdominal pain 10/02/2023 10/20/2023
--- OUTSIDE RECORDS SUMMARY | 2024-09-02 08:05 | XMS_ITS | Encounter Summary ---
Author Organization [facility] Address [address] [place] [address] Phone Care Team Providers Care Baby Attendant Name Role Phone Bigg Delarosa MD Unavailable [phone] Jefe Choe MD Unavailable + Melissa Rhodes MD Unavailable [phone] Kaushal Heath MD Primary Care Provider + [phone] Encounter Details Date Type Department Care Team (Late st Contact Info) Description 06/16/2024 Orders Only [facility] Scanning, Provider Social History Tobacco Use Types Packs/Day Years Used Date Smoking Tobacco: Never Passive Smoke Exposure: Never Smokeless Tobacco: Never [facility] Utilities Answer Date Recorded In the past 12 months has [employer], gas, oil, or water [employer] threatened to shut off services in your [...] often do you attend chur ch or buddhism services? 1 to 4 times per year 11/29/2023 Do you belong to any clubs o r organizations such as presybeterian groups, unions, fraternal or athletic groups, or [...] any time in the past 12 m [facility], were you homeless or living in a [...] Date/Time Associated Diagnosis Comments SCAN - LABS 06/16/2024 documented in this encounter Results * SCAN - LABS (06/16/2024) Provider Scanning Final Result documented in this encounter Visit Diagnoses Not on filedocumented in this encounter Additional Health Concerns Infection Onset Date Last Indicated Resolved Time MDR gram neg/ESBL Comment:Contained infection treated and resolved. 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 12/24/2023 06/21/2024 3:05 AM CDT documented as of this encounter Care Teams Baby Attendant Relationship Specialty Start Date End Date Kaushal Heath MD [address] [place] [address] PCP - General Internal Medicine 10/30/23 Bigg Delarosa MD [address] [address] Referring Physician Gastroenterology 10/15/23 Jefe Choe MD [address] [address] [place] [address] Referring Physician Gastroenterology 10/15/23 Melissa Rhodes MD [address] [facility], [address] [address] Consulting Physician Gynecologic Oncology 10/30/23 documented as of this encounter
[2024-09-02 08:16] LABS: Hematocrit 32.7 % (35.0-42.0); Hemoglobin 10.7 g/dL (11.7-13.8); Mean Corpuscular HGB Conc 32.7 g/dL (32-36); Mean Corpuscular Hemoglobin 29.8 pg (27.0-31.0); Mean Corpuscular Volume 91.1 fL (78.0-102.0); Platelet Count Result 188 K/mm3 (150-420); Red Blood Count 3.59 M/mm3 (4.20-5.40); White Blood Count 3.7 K/mm3 (4.8-10.8)
[2024-09-02 08:40] LABS: Anion Gap 7 mmol/L (4-12); Blood Urea Nitrogen 26 mg/dL (7-17); Calcium 9.5 mg/dL (8.4-10.2); Carbon Dioxide 25 mmol/L (22-30); Chloride 107 mmol/L (98-107); Estimated Glomerular Filt Rate 36; Glucose 110 mg/dL (65-110); Iron 49 ug/dL (37-170); Osmolality Calculated 293 mOsm/kg (285-295); Potassium 4.9 mmol/L (3.4-5.0); Sodium 139 mmol/L (137-145)
[2024-09-02 09:14] LABS: Ferritin 211.00 ng/mL (11.1-264)
[2024-09-02 09:29] LABS: Vitamin B12 > 1000.0 pg/mL (239-931)
[2024-09-06 13:08] LABS: Folate, Hemolysate >620.0 ng/mL (Not Estab.)
== END 2024-09-02 08:01 | disposition home or self-care (01) ==
LOC: CHSLAB 08:01
PROVIDERS: PCP Internal Medicine; Visit Provider Internal Medicine
DX: D50.9 Iron deficiency anemia, unspecified (principal); R79.89 Other specified abnormal findings of blood chemistry
CPT/HCPCS: 36415; 80048; 82607; 82728; 82747; 83540; 85027

== ENCOUNTER 2024-09-08 08:59 | Outpatient (CLI) | payer MEDICARE, OTHER, SELFPAY ==
--- NOTE | 2024-09-08 | CY_PTH ---
PATIENT: Farhana Russo LOC: [facility] U#:[id number] AGE/SX: 64/F ROOM: RE09/08/[address]: Kaushal Heath MD : 1960 BED: DIS: 09/08/2024 SPEC #: [id number] RECD: 09/08/24 09:56 STATUS: LUIS REQ #: [id number] ALESHIA: 09/08/24 00:[address]: Kaushal Heath DEPT: [facility] Cytology RECD BY: Chen Roblero MLT, ([facility]) Tissues: A - Thin Prep Non-Gyne Procedures: Thin Prep Non-tree killer
--- NOTE | ~2024-09-08 | US_ITS ---
US retroperitoneal comp 09/08/2024 09:26 Procedure: Chronic kidney disease stage IIIa Indication: Left renal stones Comparison: No prior studies for comparison. Findings: Renal echotexture is normal bilaterally without contour deforming mass. There are multiple echogenic foci in the left kidney, consistent with stones. There are multiple stones in the bladder. There is mild right hydronephrosis. The right kidney measures 10 cm and left kidney measures 9.2 cm. Bladder within normal limits. Impression: 1: Left nephrolithiasis. 2: Bladder stones. 3: Mild right hydronephrosis. Reviewed, dictated and finalized at location A. Impression: 1: Left nephrolithiasis. 2: Bladder stones. 3: Mild right hydronephrosis.
--- OUTSIDE RECORDS SUMMARY | 2024-09-08 09:15 | XMS_ITS ---
Author Organization [facility] Address [address] [place] [address] Care Team Providers Care Manager Nuclear Name Role Phone Bigg Delarosa MD Unavailable [phone] Jefe Choe MD Unavailable + Melissa Rhodes MD Unavailable [phone] Kaushal Heath MD Primary Care Provider + [phone] Active Problems Problem Noted Date Diagnosed Date Ileostomy present 07/19/2024 Pyelonephritis 07/19/2024 Ureteral stent present 07/19/2024 Staghorn calculus 07/16/2024 Diverticulitis 05/10/2024 Fever 12/09/2023 Ulcerative pancolitis with complication 12/05/19 Assessment & Plan (12/26/2023 11:47 AM ASH WORKER): Patient is a 63 y.o. female with a history of hypertension, type 2 diabetes, and inflammatory bowel disease who is admitted from Gastro[facility]ology Clinic for progressive weight loss and nausea in the setting of multiple admissions for diverticulitis complicated by contained sigmoid perforation, scattered liver and spleen abscesses and adnexal mass. She was admitted to [facility] on 11/24 for further workup [...] Patient went to the OR 12/23 with PRISON TEACHER, CRS and urology for ex lap, left colectomy with end colostomy, LIBRA, BSO and ureteral stent placement. Surgery reporting source control archived. Given source control has been achieved, we are planning on 5 days of antibiotics from surgery. On assessment today, patient reports minimal use of her VEGETABLE FARMER and that she typically has abdominal [...] 11/26/2023 Assessment & Plan (12/25/2023 12:55 PM ASH WORKER): Near resolution of hepatic and splenic abscesses. No plans for repeat imaging given improvement. Continue antibiotics as described elsewhere. Pulmonary nodule 11/26/2023 Assessment & Plan (12/26/2023 11:38 AM ASH WORKER): Patient is a 63 y.o. female with a history of hypertension, type 2 diabetes, and inflammatory bowel disease who is admitted from Gastroenterology Clinic for progressive weight loss and nausea in the setting of multiple admissions for diverticulitis complicated by contained sigmoid perforation, scattered liver and spleen abscesses and adnexal mass. She was admitted to [facility] on 11/24 for further workup [...] 11/26/2023 Assessment & Plan (12/25/2023 12:55 PM ASH WORKER): Near resolution of hepatic and splenic abscesses. [...]
--- OUTSIDE RECORDS SUMMARY | 2024-09-08 09:15 | XMS_ITS | Clinical Summary ---
Author Organization [facility] Address [address] [place] [address] Care Team Providers [facility] Executive Director Name Role Phone Bigg Delarosa MD Unavailable [phone] Jefe Choe MD Unavailable + Melissa Rhodes MD Unavailable [phone] Kaushal Heath MD Primary Care Provider [phone] Allergies Active Allergy Reactions Criticality Noted Date [...] total) by mouth every morning Active prenat.vits,erica ,[id number]-mcdpg tabletIndicatio ns:supplement Take 1 tablet by mouth [...] 12/05/19 Assessment & Plan (12/26/2023 11:47 AM PSYCHOLOGIST PRIVATE PRACTICE): Patient is a 63 y.o. female with [...] Patient went to the OR 12/23 with WAREHOUSE FOREMAN, CRS and urology for ex lap, left colectomy with end colostomy, LIBRA, BSO and ureteral stent placement. Surgery reporting source control archived. Given source control has been achieved, we are planning on 5 days of antibiotics from surgery. 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 No plans for repeat imaging given improvement. Continue antibiotics as described elsewhere. Pulmonary nodule 11/26/2023 Assessment & Plan (12/26/2023 11:38 AM PSYCHOLOGIST PRIVATE PRACTICE): Patient is a 63 y.o. female with [...] 11/26/2023 Assessment & Plan (12/25/2023 12:55 PM PSYCHOLOGIST PRIVATE PRACTICE): Near resolution of hepatic and splenic abscesses. [...] Description 08/17/2024 1:45 PM CDT Office Visit [facility] Surgery [address] [place] [address] Medical Office Building [address] [place] [address] Yo Ferreira MD Ileostomy present (HCC) (Primary Dx) 07/21/2024 Telephone [facility] Surgery [address] [place] [address] Medical Office Building [address] [place] [phone] Mel May RN 07/16/2024 7:17 AM CDT Anesthesia Event [facility] Operating Room [address] [place] [address] Bharathi Doran MD Khodamoradi, Shahrdad, MD 07/16/2024 7:15 AM CDT - 07/16/2024 11:30 AM CDT Surgery [facility] Operating Room [address] [place] [address] Yo Ferreira MD COLOSTOMY TAKEDOWN 07/16/2024 5:20 AM CDT - 07/20/2024 11:39 AM CDT Hospital Encounter [facility] [address] [address] [place] [address] Yo Ferreira MD Staghorn calculus (Primary Dx); Colostomy in place (HCC); Diverticulitis Discharge Disposition: Discharge to home or self care 07/15/2024 10:36 AM CDT - 07/15/2024 11:06 AM CDT Surgery [facility] at [address] [address] Yo Ferreira MD COLONOSCOPY THROUGH COLOSTOMY 07/15/2024 10:33 AM CDT Anesthesia Event [facility] at [address] [address] Brian Aldana MD 07/15/2024 7:53 AM CDT - 07/15/2024 11:59 PM CDT Hospital Encounter [facility] at [address] [address] Hepatic abscess Discharge Disposition: Discharge to home or self care 07/15/2024 7:44 AM CDT - 07/15/2024 11:39 AM CDT Hospital Encounter [facility] at [address] [address] Yo Ferreira MD Discharge Disposition: Discharge to home or self care 07/15/2024 Telephone [facility] Surgery [address] [place] [address] 2nd Floor [address] [place] [address] Wilma Vega [facility] Surgery Confirmation 07/08/2024 Telephone [facility] Surgery [address] [place] [address] 2nd Floor [address] [place] [address] Wilma Vega, A Colonoscopy 07/08/2024 Telephone [facility] Gastroenterology [address] [facility] Medicine 12th [place] [address] [place] [phone] Branden Katieosvaldo Doll, RMA 07/07/2024 Orders Only [facility] Surgery [address] [place] [address] Medical Office Building [address] [place] [phone] Yo Ferreira MD 07/07/2024 Telephone [facility] Surgery [address] [facility] 2nd Floor [address] [place] [address] Marlyn Dunn, RMA Colonoscopy 07/06/2024 Orders Only [facility] Surgery [address] [place] [address] Medical Office Building [address] [place] [phone] Yo Ferreira MD 07/02/2024 12:30 PM CDT Pre-Admission Testing [facility] ([facility] [address] [place] [address] Preoperative testing (Primary Dx); Colostomy in place (HCC) 06/28/2024 Telephone [facility] Gastroenterology [address] [facility] Medicine 12th [place] [address] [place] [address] Che Gamble, bark grinder Results 06/16/2024 Orders Only [facility] GASTRO[facility]OLOGY Scanning, Provider 06/10/2024 Telephone [facility] ([facility]) - [facility] Urology [address] [facility] 11th [place] [address] [place] [phone] Colby Curtis MD from Last 3 Months [...] Recorded In the past 12 months has [employer], gas, oil, or water [employer] threatened to shut off services in your [...] any clubs o r organizations such as hindu groups, unions, fraternal or athletic groups, or [...] any time in the past 12 m [facility], were you homeless or living in a snf (including now)? No 07/19/2024 Personal Safety Answer [...] Completed 10/27/2023 Medical Devices Implanted Type Area Thread Drawer Device Identifier Shelf Expiration Date Model / Serial / Lot [employer] Stent Ureteral Set Double Pigtail Radiopaque Tip [employer] [id number] Polyurethane Hydrophilic Coated [id number] - [id number] Implanted:Qty: 1 on 07/16/2024 at [facility] Left: Ureter [employer] 01/27/2027 [id number] / / [id number] Procedures Procedure Name Priority Date/Time Associated Diagnosis [...] DEVICE Routine 07/16/2024 8 :17 AM CDT [place] AN PROCEDURE PLACEHOLDER Routine 07/16/2024 8:10 AM CDT [place] AN ELECTIVE ENDOTRACHEAL AIRWAY Routine 07/16/2024 8:10 [...] CDT Preoperative testing SCAN - LABS 06/16/2024 LIPID PANEL STAT 12/04/2023 5:24 PM CDT HEMOGLOBIN A1C STAT 11/04/2023 7:56 AM CDT HEPATITIS C ANTIBODY Routine 10/27/2023 9:30 AM CDT History of chronic ulcerative colitis High risk medications (not anticoagulants) long-term use from Last 3 Months or Most Recently Relevant to Health Maintenance Results * POCT glucose (07/20/2024 8:24 AM CDT) Glucose, POC 122 70 - 199 mg/dL Comment: Interpretive Data Glucose is assumed to be non-fasting. Fasting Glucose reference ranges are: 0 - 150 years: 70 mg/dL - 99 mg/dL Current interpretive data was last revised on 2013. POC Performer [id number] GO JARAMILLO POC Device Number [id number] GO JARAMILLO Blood 07/20/2024 8:24 AM CDT 07/20/2024 8:24 AM CDT us Yo Ferreira MD LAB POCT ORDERABLES - DEVICE Final Result GO ROBERTWCH [address] [facility]. Department [place] [address] * (ABNORMAL) CBC without differential (07/19/2024 9:10 PM CDT) WBC 4.86 3.80 - 9.90 K/cumm Hgb 7.9(L) 11.9 - 15.5 g/dL GO ROBERTSERVANDO Hct 23.5(L) 35.6 - 45.5 % GO ROBERTSERVANDO Plt 136(L) 150 - 400 K/cumm GO ROBERTSERVANDO MPV 9.4 9.1 - 12.3 fL GO ROBERTSERVANDO RBC 2.57(L) 3.90 - 5.20 M/cumm GO ROBERTSERVANDO MCV 91.4 81.3 - 96.4 fL [facility] MCH 30.7 27.1 - 33.3 pg GO ROBERTSERVANDO MCHC 33.6 32.3 - 35.7 g/dL [facility] RDW CV 12.7 11.1 - 14.9 % GO ROBERTSERVANDO RDW SD 42.1 35.7 - 48.1 fL GO ROBERTSERVANDO NRBC abs 0.00 0.00 - 0.01 K/cumm GO JARAMILLO Blood 07/19/2024 9:10 PM CDT 07/19/2024 9:20 PM CDT Yo Ferreira MD LAB BLOOD ORDERABLES Final R esult GO JARAMILLO [address] [facility]. Department [place] [address] * POCT glucose (07/19/2024 8:24 PM CDT) [facility] Glucose, POC 130 70 - 199 mg/dL Comment: Interpretive Data Glucose is assumed to be non-fasting. Fasting Glucose reference ranges are: 0 - 150 years: 70 mg/dL - 99 mg/dL Current interpretive data was last revised on 2013. POC Performer [id number] GO SORTO POC Device Number [id number] GO JARAMILLO Blood 07/19/2024 8:24 PM CDT 07/19/2024 8:24 PM CDT Yo Ferreira MD LAB POCT ORDERABLES - DEVICE Final Result Performing Organization Address [facility] de Phone Number [facility] [address] [facility] [place] [address] * POCT glucose (07/19/2024 4:58 PM CDT) Glucose, POC 135 70 - 199 mg/dL Comment: Interpretive Data Glucose is assumed to be non-fasting. Fasting Glucose reference ranges are: 0 - 150 years: 70 mg/dL - 99 mg/dL Current interpretive data was last revised on 2013. POC Performer [id number] [facility] POC Device Number [id number] [facility] Blood 07/19/2024 4:58 PM CDT 07/19/2024 4:58 PM CDT Yo Ferreira MD LAB POCT ORDERABLES - DEVICE Final Result Performing Organization Address [facility] Phone Number GO ROBERTCH [address] [facility]. [facility] [place] [address] * POCT glucose (07/19/2024 12:46 PM CDT) Glucose, POC 96 70 - 199 mg/dL Comment: Interpretive Data Glucose is assumed to be non-fasting. Fasting Glucose reference ranges are: 0 - 150 years: 70 mg/dL - 99 mg/dL Current interpretive data was last revised on 2013. POC Performer [id number] [facility] POC Device Number [id number] [facility] Blood 07/19/2024 12:4 6 PM CDT 07/19/2024 12:46 PM CDT Yo Ferreira MD LAB POCT ORDERABLES - DEVICE Final Result Performing Organization Address [facility] de Phone Number GO ROBERTCH [address] [facility] [place] [address] * (ABNORMAL) CBC without differential (07/19/2024 8:57 AM CDT) [facility] WBC 5.10 3.80 - 9.90 K/cumm Hgb 8.6(L) 11.9 - 15.5 g/dL [facility] Hct 25.2(L) 35.6 - 45.5 % [facility] Plt 130(L) 150 - 400 K/cumm [facility] MPV 9.3 9.1 - 12.3 fL [facility] RBC 2.71(L) 3.90 - 5.20 M/cumm [facility] MCV 93.0 81.3 - 96.4 fL [facility] MCH 31.7 27.1 - 33.3 pg [facility] MCHC 34.1 32.3 - 35.7 g/dL [facility] RDW CV 12.9 11.1 - 14.9 % [facility] RDW SD 44.0 35.7 - 48.1 fL [facility] NRBC abs 0.00 0.00 - 0.01 K/cumm [facility] Blood 07/19/2024 8:57 AM CDT 07/19/2024 9:04 AM CDT us Kylie Huerta NP LAB BLOOD ORDERABLES Final Resul t [facility] [address] [facility] [place] [address] * POCT glucose (07/19/2024 8:00 AM CDT) Pathologist [facility] Glucose, POC 100 70 - 199 mg/dL Comment: Interpretive Data Glucose is assumed to be non-fasting. Fasting Glucose reference ranges are: 0 - 150 years: 70 mg/dL - 99 mg/dL Current interpretive data was last revised on 2013. POC Performer [id number] [facility] POC Device Number [id number] [facility] Blood 07/19/2024 8:00 AM CDT 07/19/2024 8:00 AM CDT Yo Ferreira MD LAB POCT ORDERABLES - DEVICE Final Result Performing Organization Address [facility] de Phone Number GO SORTOCH [address] [facility] [employer] [place], [place] [id number] * (ABNORMAL) eGFR (07/18/2024 8:43 PM CDT) [...] [facility]/ZIP Co de Phone Number GO ROBERTWCH [address] [facility] [place] [address] * Differential, auto (07/18/2024 8:43 PM CDT) Neutrophil abs 4.04 1.50 - 6.50 K/cumm Imm gran abs 0.03 0.00 - 0.10 K/cumm GO JARAMILLO Lymphocyte abs 1.20 0.80 - 3.30 K/cumm GO [facility] Monocyte abs 0.41 0.20 - 0.80 K/cumm GO [facility] Eosinophil abs 0.32 0.00 - 0.50 K/cumm GO [facility] Basophil abs 0.01 0.00 - 0.10 K/cumm GO [facility] Neutrophil pct 67.2 % [facility] Comment: Interpretive Data Percent cell count reference ranges are not reported, since discordance with absolute values may lead to misinterpretation of CBC data. Current Interpretive Data was last revised on 2017. Imm gran pct 0.5 % [facility] Comment: Interpretive Data Percent cell count reference ranges are not reported, since discordance with absolute values may lead to misinterpretation of CBC data. Current Interpretive Data was last revised on 2017. Lymphocyte pct 20.0 % [facility] Comment: Interpretive Data Percent cell count reference ranges are not reported, since discordance with absolute values may lead to misinterpretation of CBC data. Current Interpretive Data was last revised on 2017. Monocyte pct 6.8 % [facility] Comment: Interpretive Data Percent cell count reference ranges are not reported, since discordance with absolute values may lead to misinterpretation of CBC data. Current Interpretive Data was last revised on 2017. Eosinophil pct 5.3 % [facility] Comment: Interpretive Data Percent cell count reference ranges are not reported, since discordance with absolute values may lead to misinterpretation of CBC data. Current Interpretive Data was last revised on 2017. Basophil pct 0.2 % [facility] Comment: Interpretive Data Percent cell count reference ranges are not reported, since discordance with absolute values may lead to misinterpretation of CBC data. Current Interpretive Data was last revised on 2017. Blood 07/18/2024 8:43 PM CDT 07/18/2024 8:45 PM CDT us Yo Ferreira MD LAB BLOOD ORDERABLES Final R esult [facility] [address] [facility]. [employer] [place] [address] * (ABNORMAL) CBC with auto differential (07/18/2024 8:43 PM CDT) WBC 6.01 3.80 - 9.90 K/cumm Hgb 7.7(L) 11.9 - 15.5 g/dL [facility] Hct 22.3(L) 35.6 - 45.5 % [facility] Plt 112(L) 150 - 400 K/cumm [facility] MPV 8.9(L) 9.1 - 12.3 fL [facility] BJW RBC 2.41(L) 3.90 - 5.20 M/cumm [facility] MCV 92.5 81.3 - 96.4 fL [facility] MCH 32.0 27.1 - 33.3 pg [facility] MCHC 34.5 32.3 - 35.7 g/dL [facility] RDW CV 12.9 11.1 - 14.9 % [facility] RDW SD 43.4 35.7 - 48.1 fL [facility] NRBC abs 0.00 0.00 - 0.01 K/cumm [facility] Blood 07/18/2024 8:43 PM CDT 07/18/2024 8:45 PM CDT Yo Ferreira MD LAB BLOOD ORDERABLES Final R esult Performing Organization Address [facility] Co de Phone Number [facility] [address] [facility] Department [place] [address] * (ABNORMAL) Phosphorus (07/18/2024 8:43 PM CDT) Phosphorus, pl 1.9(L) 2.3 - 4.5 mg/dL Blood 07/18/2024 8:43 PM CDT 07/18/2024 8:45 PM CDT Yo Ferreira MD LAB BLOOD ORDERABLES Final R esult Performing Organization Address City/[facility] Co de Phone Number GO BJWCH [address] [facility] [place] [address] * Magnesium (07/18/2024 8:43 PM CDT) Pathologist [facility] Magnesium 2.1 1.4 - 2.5 mg/dL Comment: Reference Data. Reference values for Labor and Delivery patients: < or = 0.7 mg/dL to > or = 7.3 mg/dL Current reference data last reviewd on 11/16/2014. Blood 07/18/2024 8:43 PM CDT 07/18/2024 8:45 PM CDT Yo Ferreira MD LAB BLOOD ORDERABLES Final R esult Performing Organization Address City/State/[facility] Co de Phone Number GO ROBERTWCH [address] [facility] [place] [address] * (ABNORMAL) Basic metabolic panel (07/18/2024 8:43 PM CDT) Pathologist [facility] Sodium 139 135 - 145 mmol/L Potassium, pl 3.8 3.3 - 4.9 mmol/L [facility] Chloride 107 97 - 110 mmol/L [facility] CO2 23 22 - 32 mmol/L [facility] Anion gap 9 2 - 15 mmol/L [facility] BUN 14 6 - 25 mg/dL [facility] Creatinine 1.10 0.60 - 1.10 mg/dL [facility] Glucose 131 70 - 199 mg/dL [facility] Comment: Interpretive Data Fasting glucose >/= [...] ORDERABLES Final R esult Performing Organization Address [facility] de Phone Number [facility] [address] [facility] [employer] [place] [phone] * POCT glucose (07/18/2024 8:21 PM CDT) Glucose, POC 138 70 - 199 mg/dL Comment: Interpretive Data Glucose is assumed to be non-fasting. Fasting Glucose reference ranges are: 0 - 150 years: 70 mg/dL - 99 mg/dL Current interpretive data was last revised on 2013. POC Performer [id number] [facility] POC Device Number [id number] [facility] Blood 07/18/2024 8:21 PM CDT 07/18/2024 8:21 PM CDT Yo Ferreira MD LAB POCT ORDERABLES - DEVICE Final Result Performing Organization Address [facility] Phone Number GO ROBERTCH [address] [facility] [place] [address] * POCT glucose (07/18/2024 4:46 PM CDT) Glucose, POC 135 70 - 199 mg/dL Comment: Interpretive Data Glucose is assumed to be non-fasting. Fasting Glucose reference ranges are: 0 - 150 years: 70 mg/dL - 99 mg/dL Current interpretive data was last revised on 2013. POC Performer [id number] [facility] POC Device Number [id number] GO SORTO Blood 07/18/2024 4:46 PM CDT 07/18/2024 4:46 PM CDT Yo Ferreira MD LAB POCT ORDERABLES - DEVICE Final Result Performing Organization Address [facility] Co de Phone Number GO JARAMILLO [address] [facility] [place] [address] * POCT glucose (07/18/2024 11:46 AM CDT) Glucose, POC 140 70 - 199 mg/dL Comment: Interpretive Data Glucose is assumed to be non-fasting. Fasting Glucose reference ranges are: 0 - 150 years: 70 mg/dL - 99 mg/dL Current interpretive data was last revised on 2013. POC Performer [id number] [employer] POC Device Number [id number] GO JARAMILLO Blood 07/18/2024 11:4 6 AM CDT 07/18/2024 11:46 AM CDT Yo Ferreira MD LAB POCT ORDERABLES - DEVICE Final Result Performing Organization Address [facility] de Phone Number GO ROBERTCH [address] [facility]. [facility] [place] [address] * POCT glucose (07/18/2024 8:43 AM CDT) Glucose, POC 136 70 - 199 mg/dL Comment: Interpretive Data Glucose is assumed to be non-fasting. Fasting Glucose reference ranges are: 0 - 150 years: 70 mg/dL - 99 mg/dL Current interpretive data was last revised on 2013. POC Performer [id number] [facility] [employer] POC Device Number [id number] [facility] Blood 07/18/2024 8:43 AM CDT 07/18/2024 8:43 AM CDT Yo Ferreira MD LAB POCT ORDERABLES - DEVICE Final Result Performing Organization Address City/[facility] Co de Phone Number GO ROBERTCH [address] [facility] [place] [address] * (ABNORMAL) eGFR (07/17/2024 9:15 PM CDT) Pathologist [facility] eGFR 41(L) >=60 mL/min/1. 73 m2 Comment: [...] MD LAB BLOOD ORDERABLES Final R esult [facility] [address] [facility]. Department [place] [address] * (ABNORMAL) CBC without differential (07/17/2024 9:15 PM CDT) Pathologist [facility] WBC 7.25 3.80 - 9.90 K/cumm Hgb 7.9(L) 11.9 - 15.5 g/dL [facility] Hct 23.4(L) 35.6 - 45.5 % [facility] Plt 118(L) 150 - 400 K/cumm [facility] MPV 8.9(L) 9.1 - 12.3 fL [facility] RBC 2.54(L) 3.90 - 5.20 M/cumm [facility] MCV 92.1 81.3 - 96.4 fL [facility] MCH 31.1 27.1 - 33.3 pg [facility] MCHC 33.8 32.3 - 35.7 g/dL [facility] RDW CV 13.0 11.1 - 14.9 % [facility] RDW SD 43.5 35.7 - 48.1 fL [facility] NRBC abs 0.00 0.00 - 0.01 K/cumm [facility] Blood 07/17/2024 9:15 PM CDT 07/17/2024 9:17 PM CDT Narrative CERNER BJWCH - 07/17/2024 9:20 PM CDT Obtain POD 1 at 2200. us Yo Ferreira MD LAB BLOOD ORDERABLES Final R esult [facility] [address] [facility] Department [place] [address] * (ABNORMAL) Basic metabolic panel (07/17/2024 9:15 PM CDT) Sodium 136 135 - 145 mmol/L Potassium, pl 4.1 3.3 - 4.9 mmol/L [facility] Chloride 105 97 - 110 mmol/L [facility] CO2 22 22 - 32 mmol/L [facility] Anion gap 10 2 - 15 mmol/L [facility] BUN 21 6 - 25 mg/dL [facility] Creatinine 1.40(H) 0.60 - 1.10 mg/dL [facility] Glucose 182 70 - 199 mg/dL [facility] Comment: Interpretive Data Fasting glucose >/= [...] CDT 07/17/2024 9:17 PM CDT Narrative GO ROBERTAlyseSERVANDO - 07/17/2024 9:41 PM CDT Obtain POD 1 at 2200. Yo Ferreira MD LAB BLOOD ORDERABLES Final R esult Performing Organization Address [facility] de Phone Number [facility] [address] [facility] [employer] [place], [place] [id number] * POCT glucose (07/17/2024 8:49 PM CDT) Glucose, POC 188 70 - 199 mg/dL Comment: Interpretive Data Glucose is assumed to be non-fasting. Fasting Glucose reference ranges are: 0 - 150 years: 70 mg/dL - 99 mg/dL Current interpretive data was last revised on 2013. POC Performer [id number] [facility] POC Device Number [id number] GO SORTO Blood 07/17/2024 8:49 PM CDT 07/17/2024 8:49 PM CDT Yo Ferreira MD LAB POCT ORDERABLES - DEVICE Final Result Performing Organization Address [facility] de Phone Number GO ROBERTCH [address] [facility] [place] [address] * POCT glucose (07/17/2024 5:13 PM CDT) Glucose, POC 152 70 - 199 mg/dL Comment: Interpretive Data Glucose is assumed to be non-fasting. Fasting Glucose reference ranges are: 0 - 150 years: 70 mg/dL - 99 mg/dL Current interpretive data was last revised on 2013. POC Performer [id number] [facility] POC Device Number [id number] GO SORTOCH Blood 07/17/2024 5:13 PM CDT 07/17/2024 5:13 PM CDT Yo Ferreira MD LAB POCT ORDERABLES - DEVICE Final Result Performing Organization Address [facility] Phone Number GO ROBERTWCH [address] [address] [place] [address] * POCT glucose (07/17/2024 12:45 PM CDT) Glucose, POC 174 70 - 199 mg/dL Comment: Interpretive Data Glucose is assumed to be non-fasting. Fasting Glucose reference ranges are: 0 - 150 years: 70 mg/dL - 99 mg/dL Current interpretive data was last revised on 2013. POC Performer [id number] [facility] POC Device Number [id number] GO JARAMILLO Blood 07/17/2024 12:4 5 PM CDT 07/17/2024 12:45 PM CDT Yo Ferreira MD LAB POCT ORDERABLES - DEVICE Final Result Performing Organization Address [facility] Phone Number GO BJWCH [address] [place] [address] * POCT glucose (07/17/2024 8:08 AM CDT) Glucose, POC 171 70 - 199 mg/dL Comment: Interpretive Data Glucose is assumed to be non-fasting. Fasting Glucose reference ranges are: 0 - 150 years: 70 mg/dL - 99 mg/dL Current interpretive data was last revised on 2013. POC Performer [id number] GO SORTO POC Device Number [id number] GO SORTOCH Blood 07/17/2024 8:08 AM CDT 07/17/2024 8:08 AM CDT Yo Ferreira MD LAB POCT ORDERABLES - DEVICE Final Result Performing Organization Address [facility] de Phone Number GO ROBERTWCH [address] [facility] [place] [address] * POCT glucose (07/17/2024 1:55 AM CDT) Glucose, POC 189 70 - 199 mg/dL Comment: Interpretive Data Glucose is assumed to be non-fasting. Fasting Glucose reference ranges are: 0 - 150 years: 70 mg/dL - 99 mg/dL Current interpretive data was last revised on 2013. POC Performer [id number] GO SORTO POC Device Number [id number] GO [facility] Blood 07/17/2024 1:55 AM CDT 07/17/2024 1:55 AM CDT Yo Ferreira MD LAB POCT ORDERABLES - DEVICE Final Result Performing Organization Address [facility] Phone Number GO ROBERTWCH [address] [facility] [place] [address] * (ABNORMAL) eGFR (07/16/2024 10:07 PM CDT) [facility] eGFR 41(L) >=60 mL/min/1. 73 m2 Comment: [...] Ferreira MD LAB BLOOD ORDERABLES Final R [facility] Performing Organization Address [facility] de Phone Number [facility] [address] [facility] [place] [address] * (ABNORMAL) Protime-INR (07/16/2024 10:07 PM CDT) [...] Ferreira MD LAB BLOOD ORDERABLES Final R [facility] Performing Organization Address [facility] de Phone Number [facility] [address] [facility] [place] [address] * (ABNORMAL) CBC without differential (07/16/2024 10:07 PM CDT) WBC 13.73(H) 3.80 - 9.90 K/cumm Hgb 9.0(L) 11.9 - 15.5 g/dL GO SORTO Hct 27.3(L) 35.6 - 45.5 % GO SORTO Plt 151 150 - 400 K/cumm GO SORTO MPV 9.4 9.1 - 12.3 fL [facility] RBC 2.86(L) 3.90 - 5.20 M/cumm [facility] MCV 95.5 81.3 - 96.4 fL [facility] MCH 31.5 27.1 - 33.3 pg [facility] MCHC 33.0 32.3 - 35.7 g/dL [facility] RDW CV 12.8 11.1 - 14.9 % [facility] RDW SD 44.4 35.7 - 48.1 fL [facility] NRBC abs 0.00 0.00 - 0.01 K/cumm [facility] Blood 07/16/2024 10:0 7 PM CDT 07/16/2024 10:26 PM CDT Narrative [facility] - 07/16/2024 10:35 PM CDT Obtain POD 0 at 2000. us Yo Ferreira MD LAB BLOOD ORDERABLES Final R esult [facility] [address] [facility] Department [place] [address] * (ABNORMAL) Basic metabolic panel (07/16/2024 10:07 PM CDT) [facility] Signature Sodium 134(L) 135 - 145 mmol/L Potassium, pl 4.4 3.3 - 4.9 mmol/L [facility] Chloride 100 97 - 110 mmol/L [facility] CO2 19(L) 22 - 32 mmol/L [facility] Anion gap 16(H) 2 - 15 mmol/L [facility] BUN 28(H) 6 - 25 mg/dL [facility] Creatinine 1.40(H) 0.60 - 1.10 mg/dL [facility] Glucose 213(H) 70 - 199 mg/dL [facility] Comment: Interpretive Data Fasting glucose >/= [...] CDT 07/16/2024 10:26 PM CDT Narrative [facility] YESICAW[facility] - 07/16/2024 10:58 PM CDT Obtain POD 0 at 2000. Yo Ferreira MD LAB BLOOD ORDERABLES Final R esult Performing Organization Address [facility] Co de Phone Number GO [facility] [address] [employer] [place] [address] * (ABNORMAL) POCT glucose (07/16/2024 9:22 PM CDT) Pathologist [facility] Glucose, POC 230(H) 70 - 199 mg/dL Comment: Interpretive Data Glucose is assumed to be non-fasting. Fasting Glucose reference ranges are: 0 - 150 years: 70 mg/dL - 99 mg/dL Current interpretive data was last revised on 2013. POC Performer [id number] GO SORTO POC Device Number [id number] GO SORTO Blood 07/16/2024 9:22 PM CDT 07/16/2024 9:22 PM CDT Yo Ferreira MD LAB POCT ORDERABLES - DEVICE Final Result Performing Organization Address [facility] Co de Phone Number [facility] [address] [employer] [place] [address] * (ABNORMAL) eGFR (07/16/2024 1:37 PM CDT) Pathologist [facility] eGFR 50(L) >=60 mL/min/1. 73 m2 Comment: [...] 1:41 PM CDT us Kylie Huerta DIRECTOR WORK LAB BLOOD ORDERABLES Final Resul t [facility] [address] [facility]. Department [place] [address] * (ABNORMAL) CBC without differential (07/16/2024 1:37 PM CDT) WBC 11.56(H) 3.80 - 9.90 K/cumm Hgb 10.4(L) 11.9 - 15.5 g/dL [facility] Hct 30.4(L) 35.6 - 45.5 % [facility] Plt 148(L) 150 - 400 K/cumm [facility] MPV 8.9(L) 9.1 - 12.3 fL [facility] RBC 3.33(L) 3.90 - 5.20 M/cumm [facility] MCV 91.3 81.3 - 96.4 fL [facility] MCH 31.2 27.1 - 33.3 pg [facility] MCHC 34.2 32.3 - 35.7 g/dL [facility] RDW CV 12.4 11.1 - 14.9 % [facility] B[facility] RDW SD 41.3 35.7 - 48.1 fL [facility] B[facility] NRBC abs 0.00 0.00 - 0.01 K/cumm [facility] BJW Blood 07/16/2024 1:37 PM CDT 07/16/2024 1:41 PM CDT Kylie Huerta DIRECTOR WORK LAB BLOOD ORDERABLES Final Resul t GO JARAMILLO [address] [facility] Department [place] [address] * (ABNORMAL) Basic metabolic panel (07/16/2024 1:37 PM CDT) Sodium 139 135 - 145 mmol/L Potassium, pl 3.9 3.3 - 4.9 mmol/L [facility] BJW Chloride 104 97 - 110 mmol/L [facility] CO2 20(L) 22 - 32 mmol/L [facility] Anion gap 15 2 - 15 mmol/L [facility] BUN 26(H) 6 - 25 mg/dL [facility] Creatinine 1.20(H) 0.60 - 1.10 mg/dL [facility] Glucose 170 70 - 199 mg/dL [facility] Comment: Interpretive Data Fasting glucose >/= 126 [...] 2022. Calcium 8.2(L) 8.5 - 10.3 mg/dL [facility] Blood 07/16/2024 1:37 PM CDT 07/16/2024 1:41 PM CDT Kylie Huerta NP LAB BLOOD ORDERABLES Final Resul t Performing Organization Address [facility] Co de Phone Number [facility] [address] [facility] [place] [address] * POCT glucose (07/16/2024 10:53 AM CDT) Glucose, POC 132 70 - 199 mg/dL Comment: Interpretive Data Glucose is assumed to be non-fasting. Fasting Glucose reference ranges are: 0 - 150 years: 70 mg/dL - 99 mg/dL Current interpretive data was last revised on 2013. POC Performer [id number] [employer] POC Device Number [id number] GO SORTO Blood 07/16/2024 10:5 3 AM CDT 07/16/2024 10:53 AM CDT us Yo Ferreira MD LAB POCT ORDERABLES - DEVICE Final Result Performing Organization Address [facility] de Phone Number GO ROBERTCH [address] [facility] [place] [address] * POCT glucose (07/16/2024 10:27 AM CDT) Glucose, POC 129 70 - 199 mg/dL Comment: Interpretive Data Glucose is assumed to be non-fasting. Fasting Glucose reference ranges are: 0 - 150 years: 70 mg/dL - 99 mg/dL Current interpretive data was last revised on 2013. POC Performer [id number] GO SORTO POC Device Number [id number] SABIHAYASMINE ROBERTAlyseEloqua Blood 07/16/2024 10:2 7 AM CDT 07/16/2024 10:27 AM CDT Yo Ferreira MD LAB POCT ORDERABLES - DEVICE Final Result Performing Organization Address [facility] Co de Phone Number [facility] [address] [facility] [place] [address] * Surgical pathology (07/16/2024 9:28 AM CDT) Tissue (Rectum, Resection) 07/16/2024 9:28 AM CDT Tissue specimen (specimen) (Colon, Colostomy Stoma) 07/16/2024 10:19 AM CDT Narrative PATHOLOGY W - 07/26/2024 12:46 PM CDT EPIC results best viewed via link to PDF [facility] [place] [address] Note to Patients: This report may contain [...] Gender: F : 1960 (Age: 64) Address: [address] [place], [place] [id number] Hospital #: [id number] Taken:07/16/2024 Received:07/16/2024 Reported: 07/26/2024 Patient Type: [facility] EP INPAT Client [facility] Service: Surgery Location: Physician(s): Monserrat Rubio M.D. Diagnosis: A. Rectum, resection - Rectal wall with cryptitis, erosion and prominent lymphoid aggregates; see comment - Negative for granuloma, dysplasia, and viral inclusions - Five benign lymph nodes B. Colostomy, stoma, takedown - Bowel wall with reactive epithelial changes and mild hemorrhage - No viable squamous mucosa identified (additional sections submitted) [facility]/07/26/2024 12:46 By this signature, I attest that [...] as follows: A1-A2 Resection margins, shaved, A3 German Instructor sections of rectal mucosa, A4 Lymph nodes, [...] interpretation for this case was performed at [facility], Department of Surgical Pathology, [address] [facility] [place] [place] [id number], [place] [address] CLIA # [id number] The performance characteristics of some immunohistochemical stains, fluorescence in-situ hybridization tests and immunophenotyping by flow cytometry cited in this report (if any) were determined by the Surgical Pathology and Flow Cytometry Departments at [facility] as part of an ongoing quality process engineer program and in compliance with federally [...] Surgical Pathology and Flow Cytometry Departments of [facility]. It has not been cleared or approved by the U. S. Food and Drug Administration. IMAGES AND SCANNED DOCUMENTS, IF INCLUDED, ONLY VIEWABLE IN PDF VERSION OF REPORT Yo Ferreira MD LAB PATHOLOGY ORDERABLES Fin al Result Performing Organization Address [facility] de Phone Number PATHOLOGY [facility] [phone] * POCT glucose (07/16/2024 8:17 AM CDT) Glucose, POC 86 70 - 199 mg/dL Comment: Interpretive Data Glucose is assumed to be non-fasting. Fasting Glucose reference ranges are: 0 - 150 years: 70 mg/dL - 99 mg/dL Current interpretive data was last revised on 2013. POC Performer [id number] GO JARAMILLO POC Device Number [id number] GO JARAMILLO Blood 07/16/2024 8:17 AM CDT 07/16/2024 8:17 AM CDT Yo Ferreira MD LAB POCT ORDERABLES - DEVICE Final Result Performing Organization Address [facility] Co de Phone Number GO SORTOCH [address] [facility]. Department [place] [address] * [place] AN ELECTIVE ENDOTRACHEAL AIRWAY, [place] AN PROCEDURE PLACEHOLDER (07/16/2024 8:10 AM CDT) Narrative SemarJosephineTaryn Barbie, STITCHER TAPE CONTROLLED MACHINE - 07/16/2024 8:10 AM CDT Taryn Krishna CRNA 07/16/2024 8:11 AM Airway Patient location: OR Urgency: elective Indications for airway management: anesthesia Difficult airway: no Staff: Placed by: STITCHER TAPE CONTROLLED MACHINE: Taryn Krishna CRNA Airway prep: Preoxygenated: yes [...] AM CDT) ABO Rh O Positive GO BJWCH HCLL OTHER 07/16/2024 7:42 AM CDT 07/16/2024 8:52 AM CDT Yo Ferreira MD LAB BLOOD ORDERABLES Final R esult Performing Organization Address [facility] Co de Phone Number GO SORTO [address] [facility] [place] [address] * Type and screen (07/16/2024 7:18 AM CDT) Maira, indirect Negative [facility] ABO Rh O Positive [facility] Blood 07/16/2024 7:18 AM CDT 07/16/2024 7:41 AM CDT Narrative GO SORTO - 07/16/2024 8:51 AM CDT Has the patient had Daratumumab or Isatuximab in the past 6 months?->Unknown Bong De Santiago DO LAB BLOOD BANK TEST ORDER INO Final Result Performing Organization Address [facility] de Phone Number [facility] [address] [facility] [place] [address] * POCT glucose (07/16/2024 6:08 AM CDT) Pathologist [facility] Glucose, POC 85 70 - 199 mg/dL Comment: Interpretive Data Glucose is assumed to be non-fasting. Fasting Glucose reference ranges are: 0 - 150 years: 70 mg/dL - 99 mg/dL Current interpretive data was last revised on 2013. POC Performer [id number] GO SORTO POC Device Number [id number] GO SORTO Blood 07/16/2024 6:08 AM CDT 07/16/2024 6:08 AM CDT Yo Ferreira MD LAB POCT ORDERABLES - DEVICE Final Result Performing Organization Address [facility] Co de Phone Number GO ROBERTCH [address] [facility] [place] [address] * Colonoscopy (07/15/2024 10:39 AM CDT) Anatomical Region Laterality Modality Other Narrative Procedure Note Yo Ferreira MD - 07/15/2024 10:39 AM CDT [facility] Patient Name: Farhana Russo Procedure Date: [...] The scope was passed under direct vision.The [id number] Endoscsope was introduced through the descending colostomy and advanced to the the cecum, identified by appendiceal orifice andileocecal valve. The colonoscopy was performed with ease. The patient tolerated the procedure well. The qualityof the bowel preparation was excellent. The quality of the bowel preparation was evaluated using the BBPS (Warren Bowel Preparation Scale) with scores of:Right Colon [...] On: 07/15/2024 10:39 AM Recognized by the [employer] for promoting quality [...] * POCT glucose (07/15/2024 8:37 AM CDT) [facility] Signature Glucose, POC 106 70 - 199 mg/dL Blood 07/15/2024 8:37 AM CDT 07/15/2024 8:37 AM CDT Yo Ferreira MD LAB POCT ORDERABLES - DEVICE Final Result GO [facility] Department [place] [address] * (ABNORMAL) eGFR (07/02/2024 1:20 PM CDT) [...] LAB BLOOD ORDERABLES Final R esult [facility] Department [place] [address] * (ABNORMAL) Urinalysis reflex to microscopic (07/02/2024 1:20 PM CDT) Color, ur Yellow Yellow Clarity, ur Clear Clear [facility] Specific gravity, ur 1.021 1.003 - 1.030 [facility] pH, urine 6.0 [facility] Comment: Interpretive Data U rine pH is affected by diet, medications, systemic acid-base disturbances, and renal tubular function. pH may affect urinary stone formation. For example, urine pH below 6.0 may help reduce the tendency for calcium phosphate stones and pH greater than 6.0 may reduce the tendency for uric acid stone formation. Source: [employer] Current Interpretive Data was last revised on 2017 Protein, ur ql 1+(A) Negative [facility] Glucose, ur ql Negative Negative [facility] Ketones, ur Negative Negative [facility] Bilirubin, ur Negative Negative [facility] Blood, ur 2+(A) Negative [facility] Urobilinogen, ur <2.0 <2.0 mg/dL [facility] Nitrite, ur Negative Negative [facility] Leukocyte esterase, ur 2+(A) Negative [facility] UA reflex comment Reflex to microscopic UA will be performed. [facility] Urine 07/02/2024 1:20 PM CDT 07/02/2024 2:26 PM CDT Bong De Santiago LAB URINE ORDERABLES Samantha l Result Performing Organization Address [facility] de Phone Number [facility] Department [place] [address] * (ABNORMAL) Urinalysis, microscopic only (07/02/2024 1:20 PM CDT) WBC, ur 11-20(A) 0 - 5 /HPF RBC, ur 21-50(A) 0 - 2 /HPF [facility] Epithelial cells, squamous, ur 1-5 0 - 5 /HPF [facility] Mucous, ur Present(A) [facility] Urine 07/02/2024 1:20 PM CDT 07/02/2024 2:26 PM CDT Bong De Santiago LAB URINE ORDERABLES Samantha l Result Performing Organization Address [facility] Co de Phone Number [facility] Department [place] [address] * (ABNORMAL) CBC without differential (07/02/2024 1:20 PM CDT) WBC 4.52 3.80 - 9.90 K/cumm Hgb 11.2(L) 11.9 - 15.5 g/dL [facility] Hct 32.5(L) 35.6 - 45.5 % [facility] Plt 155 150 - 400 K/cumm [facility] MPV 9.5 9.1 - 12.3 fL [facility] RBC 3.64(L) 3.90 - 5.20 M/cumm [facility] MCV 89.3 81.3 - 96.4 fL [facility] MCH 30.8 27.1 - 33.3 pg [facility] MCHC 34.5 32.3 - 35.7 g/dL [facility] RDW CV 12.6 11.1 - 14.9 % [facility] RDW SD 41.2 35.7 - 48.1 fL [facility] NRBC abs 0.00 0.00 - 0.01 K/cumm [facility] Blood 07/02/2024 1:20 PM CDT 07/02/2024 2:30 PM CDT us Bong De Santiago DO LAB BLOOD ORDERABLES Samantha l Result [facility] Department [place] [address] * (ABNORMAL) Basic metabolic panel (07/02/2024 1:20 PM CDT) Sodium 138 135 - 145 mmol/L Potassium, pl 4.1 3.3 - 4.9 mmol/L [facility] Chloride 103 97 - 110 mmol/L [facility] CO2 28 22 - 32 mmol/L [facility] Anion gap 7 2 - 15 mmol/L [facility] BUN 30(H) 6 - 25 mg/dL [facility] Creatinine 1.42(H) 0.60 - 1.10 mg/dL [facility] Glucose 105 70 - 199 mg/dL [facility] Comment: Interpretive Data Fasting glucose >/= [...] 2022. Calcium 9.1 8.5 - 10.3 mg/dL GO ROBERT Blood 07/02/2024 1:20 PM CDT 07/02/2024 2:49 PM CDT Narrative GO [facility] - 07/02/2024 3:18 PM CDT This order is is required for all post operative patients receiving lovenox. us Yo Ferreira MD LAB BLOOD ORDERABLES Final R esult [facility] Department [place] [address] * SCAN - LABS (06/16/2024) us Provider Scanning Final Result * (ABNORMAL) Lipid panel (12/04/2023 5:24 PM [...] on 2017. Triglycerides 75 <=149 mg/dL GO [facility] [...] revised on 2017. Chol/HDL ratio 3 [facility] Blood 12/04/2023 5:24 PM CDT 12/04/2023 5:34 PM CDT Narrative [facility] - 12/04/2023 7:03 PM CDT This lipid panel was automatically ordered due to a significant change in Troponin. The dietary status of the patient at the collection time should be correlated with the lipid results. Álvaro Radford MD LAB BLOOD ORDERABLES Final Result Performing Organization Address [facility] de Phone Number [facility] [place] [address] * (ABNORMAL) Hemoglobin A1c (11/04/2023 7:56 AM CDT) [facility] Hgb A1C 5.7(H) 4.0 - 5.6 % Estimated Average Glucose 117 mg/dL [facility] Comment: The ADA recommends reporting an [...] ORDERABLES F inal Result Performing Organization Address [facility] Co de Phone Number [facility] [place] [address] * Hepatitis C antibody Blood (10/27/2023 9:30 [...] last revised on 2019. Testing performed by: [facility], [address] [place] [address]., [address] Blood 10/27/2023 9:30 AM CDT 10/27/2023 12:43 PM CDT Gildardo Jung MD LAB MICROBIOLOGY - GENERAL OR DERABLES Edited Result - Final Performing Organization Address City/State/ZIP Co nm Phone Number [facility] [address] [facility]. [place] [address] from Last 3 Months or Most Recently Relevant to Health Maintenance Insurance [facility] MED[facility]ARE [facility] [place]ANS[place]CA [place]tran [id number] Advance Directives For more information, please contact: [phone] * Full Code (Latest Code Status on [...] 5:00 PM 11/06/2023 7:28 PM Care Teams Campus Executive Director Relationship Specialty Start Date End Date Kaushal Heath MD [address] [place] [address] PCP - General Internal Medicine 10/30/23 Bigg Delarosa MD [address] [facility] [address] [address] Referring Physician Gastroenterology 10/15/23 Jefe Choe MD [address] [facility] [address] [place] [address] [place] [address] Referring Physician Gastroenterology 10/15/23 Melissa Rhodes MD [address] [facility] GYNECOLOGIC ONCOLOGY[address] [address] Consulting Physician Gynecologic Oncology 10/30/23
--- OUTSIDE RECORDS SUMMARY | 2024-09-08 09:15 | XMS_ITS | Referral Summary ---
Author Organization [facility] Address [address] [place] [address] Care Team Providers Care Fire Safety Manager Name Role Phone Bigg Delarosa MD Unavailable [phone] Jefe Choe MD Unavailable + Melissa Rhodes MD Unavailable [phone] Kaushal Heath MD Primary Care Provider [phone] Encounters Date Type Department Care Team Description 08/17/2024 1:45 PM CDT Office Visit [facility] Surgery [address] [place] [address] Medical Office Building [address] [place] [address] Yo Ferreira MD Ileostomy present (HCC) (Primary Dx) 07/21/2024 Telephone [facility] Surgery [address] [place] [address] Office Building [address] [place] [phone] Mel May RN 07/16/2024 5:20 AM CDT - 07/20/2024 11:39 AM CDT Hospital Encounter [facility] [address] [place] [address] Yo Ferreira MD Staghorn calculus (Primary Dx); Colostomy in place (HCC); Diverticulitis Discharge Disposition: Discharge to home or self care 07/16/2024 7:15 AM CDT - 07/16/2024 11:30 AM CDT Surgery [facility] Operating Room [address] [place] [address] Yo Ferreira MD COLOSTOMY TAKEDOWN 07/16/2024 7:17 AM CDT Anesthesia Event [facility] Operating Room [address] [address] [facility] [place] [address] Bharathi Doran MD Khodamoradi, Shahrdad, MD 07/15/2024 Telephone [facility] Surgery [address] [facility] 2nd Floor [address] [place] [address] Wilma Vega, A Surgery Confirmation 07/15/2024 7:53 AM CDT - 07/15/2024 11:59 PM CDT Hospital Encounter [facility] Radiology at [address] [address] Hepatic abscess Discharge Disposition: Discharge to home or self care 07/15/2024 10:36 AM CDT - 07/15/2024 11:06 AM CDT Surgery [facility] Endoscopy at [address] [address] Yo Ferreira MD COLONOSCOPY THROUGH COLOSTOMY 07/15/2024 10:33 AM CDT Anesthesia Event [facility] Endoscopy at [address] [address] Brian Aldana MD 07/15/2024 7:44 AM CDT - 07/15/2024 11:39 AM CDT Hospital Encounter [facility] Endoscopy at [address] [address] Yo Ferreira MD Discharge Disposition: Discharge to home or self care 07/08/2024 Telephone [facility] Surgery [address] [facility] 2nd Floor [address] [place] [address] Wilma Vega Tila Colonoscopy 07/08/2024 Telephone [facility] Gastroenterology [address] [place] [address] 12th [place] [address] [place] [address] BrandenKatie, RMA 07/07/2024 Orders Only [facility] Surgery [address] [facility] Medical Office Building [address] [place] [address] Yo Ferreira MD 07/07/2024 Telephone [facility] Surgery [address] [facility] [address] 2nd Floor [address] [place] [address] Marlyn Dunn, RMA Colonoscopy 07/06/2024 Orders Only [facility] Surgery [address] [facility] Medical Office Building 4 [address] [place] [address] Yo Ferreira MD 07/02/2024 12:30 PM CDT Pre-Admission Testing [facility] for Preoperative Assessment and Planning [facility] ([facility]) [address] [place] [address] Preoperative testing (Primary Dx); Colostomy in place (HCC) 06/28/2024 Telephone [facility] Gastroenterology [address] [facility] Medicine 12th [place] [address] [place] [phone] Che Gamble RN Lab Results 06/16/2024 Orders Only [facility] GASTROENTEROLOGY Scanning, Provider 06/10/2024 Telephone [facility] ([facility]) - [facility] Urology [address] [facility] 11th [place] [address] [place] [address] Colby Curtis MD from Last 3 Months [...] total) by mouth every morning Active prenat.vits,erica ,qid-jkvb-bciln tabletIndicatio ns:supplement Take 1 tablet by mouth [...] 12/05/19 Assessment & Plan (12/26/2023 11:47 AM TYPEWRITER RIBBON WINDER): Patient is a 63 y.o. female with a history of hypertension, type 2 diabetes, and inflammatory bowel disease who is admitted from Gastroenterology Clinic for progressive weight loss and nausea in the setting of multiple admissions for diverticulitis complicated by contained sigmoid perforation, scattered liver and spleen abscesses and adnexal mass. She was admitted to [facility] on 11/24 for further workup and [...] Patient went to the OR 12/23 with ROLLER MILL TENDER, CRS and urology for ex lap, left colectomy with end colostomy, LIBRA, BSO and ureteral stent placement. Surgery reporting source control archived. Given source control has been achieved, we are planning on 5 days of antibiotics from surgery. On assessment today, patient reports minimal use of her [employer] and that she typically has abdominal discomfort [...] 11/26/2023 Assessment & Plan (12/25/2023 12:55 PM TYPEWRITER RIBBON WINDER): Near resolution of hepatic and splenic abscesses. No plans for repeat imaging given improvement. Continue antibiotics as described elsewhere. Pulmonary nodule 11/26/2023 Assessment & Plan (12/26/2023 11:38 AM TYPEWRITER RIBBON WINDER): Patient is a 63 y.o. female with a history of hypertension, type 2 diabetes, and inflammatory bowel disease who is admitted from Gastroenterology Clinic for progressive weight loss and nausea in the setting of multiple admissions for diverticulitis complicated by contained sigmoid perforation, scattered liver and spleen abscesses and adnexal mass. She was admitted to [facility] on 11/24 for further workup and [...] 11/26/2023 Assessment & Plan (12/25/2023 12:55 PM TYPEWRITER RIBBON WINDER): Near resolution of hepatic and splenic abscesses. [...] Tobacco: Never Tobacco Cessation:Counseling Given: Not Answered [facility] Utilities Answer Date Recorded In the past 12 months has [employer], [employer], oil, or water [employer] threatened to shut off services in your [...] often do you attend chur ch or confucianism services? 1 to 4 times [...] time in the past 12 [place], were you homeless or living in a mcfp (including now)? No 07/19/2024 Personal Safety Answer [...] on file Medical Devices Implanted Type Area Sprayer Hand Device Identifier Shelf Expiration Date Model / Serial / Lot [employer] Stent Ureteral Set Double Pigtail Radiopaque Tip [employer] [id number] Polyurethane Hydrophilic Coated [id number] - [id number] Implanted:Qty: 1 on 07/16/2024 at [facility] Left: Ureter [employer] 01/27/2027 [id number] / / [id number] Procedures Procedure Name Priority Date/Time Associated Diagnosis [...] DEVICE Routine 07/16/2024 8 :17 AM CDT MN AN PROCEDURE PLACEHOLDER Routine 07/16/2024 8:10 AM CDT MN AN ELECTIVE ENDOTRACHEAL AIRWAY Routine 07/16/2024 8:10 [...] was last revised on 2013. POC Performer [id number] GO JARAMILLO POC Device Number [id number] GO JARAMILLO Blood 07/20/2024 8:24 AM CDT 07/20/2024 8:24 AM CDT us Yo Ferreira MD LAB POCT ORDERABLES - DEVICE Final Result GO SORTOCH [address] [facility] Department of Laboratories [place], [place] [id number] * (ABNORMAL) CBC without differential (07/19/2024 9:10 PM CDT) WBC 4.86 3.80 - 9.90 K/cumm Hgb 7.9(L) 11.9 - 15.5 g/dL GO JARAMILLO Hct 23.5(L) 35.6 - 45.5 % GO JARAMILLO Plt 136(L) 150 - 400 K/cumm GO JARAMILLO MPV 9.4 9.1 - 12.3 fL GO JARAMILLO RBC 2.57(L) 3.90 - 5.20 M/cumm GO JARAMILLO MCV 91.4 81.3 - 96.4 fL GO JARAMILLO MCH 30.7 27.1 - 33.3 pg GO JARAMILLO MCHC 33.6 32.3 - 35.7 g/dL GO JARAMILLO RDW CV 12.7 11.1 - 14.9 % GO JARAMILLO RDW SD 42.1 35.7 - 48.1 fL GO JARAMILLO NRBC abs 0.00 0.00 - 0.01 K/cumm GO JARAMILLO Blood 07/19/2024 9:10 PM CDT 07/19/2024 9:20 PM CDT Yo Ferreira MD LAB BLOOD ORDERABLES Final R esult Performing Organization Address City/[facility] Co de Phone Number GO ROBERTCH [address] [facility] [place] [address] * POCT glucose (07/19/2024 8:24 PM CDT) [facility] Glucose, POC 130 70 - 199 mg/dL Comment: Interpretive Data Glucose is assumed to be non-fasting. Fasting Glucose reference ranges are: 0 - 150 years: 70 mg/dL - 99 mg/dL Current interpretive data was last revised on 2013. POC Performer [id number] [facility] POC Device Number [id number] GO SORTO Blood 07/19/2024 8:24 PM CDT 07/19/2024 8:24 PM CDT Yo Ferreira MD LAB POCT ORDERABLES - DEVICE Final Result Performing Organization Address [facility] Co de Phone Number GO ROBERTWCH [address] [facility] [employer] [place], [place] [id number] * POCT glucose (07/19/2024 4:58 PM CDT) Glucose, POC 135 70 - 199 mg/dL Comment: Interpretive Data Glucose is assumed to be non-fasting. Fasting Glucose reference ranges are: 0 - 150 years: 70 mg/dL - 99 mg/dL Current interpretive data was last revised on 2013. POC Performer [id number] [facility] POC Device Number [id number] [facility] Blood 07/19/2024 4:58 PM CDT 07/19/2024 4:58 PM CDT Yo Ferreira MD LAB POCT ORDERABLES - DEVICE Final Result Performing Organization Address [facility] de Phone Number [facility] [address] [facility] [address] [place] [address] * POCT glucose (07/19/2024 12:46 PM CDT) Glucose, POC 96 70 - 199 mg/dL Comment: Interpretive Data Glucose is assumed to be non-fasting. Fasting Glucose reference ranges are: 0 - 150 years: 70 mg/dL - 99 mg/dL Current interpretive data was last revised on 2013. POC Performer [id number] [facility] POC Device Number [id number] [facility] Blood 07/19/2024 12:4 6 PM CDT 07/19/2024 12:46 PM CDT Yo Ferreira MD LAB POCT ORDERABLES - DEVICE Final Result Performing Organization Address [facility] de Phone Number [facility] [address] [facility] [address] [place] [address] * (ABNORMAL) CBC without differential (07/19/2024 8:57 AM CDT) Pathologist [facility] WBC 5.10 3.80 - 9.90 K/cumm Hgb 8.6(L) 11.9 - 15.5 g/dL [facility] Hct 25.2(L) 35.6 - 45.5 % [facility] Plt 130(L) 150 - 400 K/cumm [facility] MPV 9.3 9.1 - 12.3 fL [facility] RBC 2.71(L) 3.90 - 5.20 M/cumm [facility] MCV 93.0 81.3 - 96.4 fL [facility] MCH 31.7 27.1 - 33.3 pg [facility] MCHC 34.1 32.3 - 35.7 g/dL [facility] RDW CV 12.9 11.1 - 14.9 % [facility] RDW SD 44.0 35.7 - 48.1 fL [facility] NRBC abs 0.00 0.00 - 0.01 K/cumm [facility] Blood 07/19/2024 8:57 AM CDT 07/19/2024 9:04 AM CDT Kylie Huerta NNP LAB BLOOD ORDERABLES Final Resul t Performing Organization Address [facility] Co de Phone Number [facility] [address] [employer] [place] [address] * POCT glucose (07/19/2024 8:00 AM CDT) [facility] Glucose, POC 100 70 - 199 mg/dL Comment: Interpretive Data Glucose is assumed to be non-fasting. Fasting Glucose reference ranges are: 0 - 150 years: 70 mg/dL - 99 mg/dL Current interpretive data was last revised on 2013. POC Performer [id number] [facility] POC Device Number [id number] [facility] Blood 07/19/2024 8:00 AM CDT 07/19/2024 8:00 AM CDT Yo Ferreira MD LAB POCT ORDERABLES - DEVICE Final Result Performing Organization Address City/[facility] Co de Phone Number [facility] [address] [facility] [place] [address] * (ABNORMAL) eGFR (07/18/2024 8:43 PM CDT) Pathologist [facility] eGFR 55(L) >=60 mL/min/1. 73 m2 Comment: [...] LAB BLOOD ORDERABLES Final R esult [facility] [address] [facility]. [place] [address] * Differential, auto (07/18/2024 8:43 PM CDT) Pathologist [facility] Neutrophil abs 4.04 1.50 - 6.50 K/cumm Imm gran abs 0.03 0.00 - 0.10 K/cumm [facility] Lymphocyte abs 1.20 0.80 - 3.30 K/cumm [facility] Monocyte abs 0.41 0.20 - 0.80 K/cumm [facility] Eosinophil abs 0.32 0.00 - 0.50 K/cumm [facility] Basophil abs 0.01 0.00 - 0.10 K/cumm GO JARAMILLO Neutrophil pct 67.2 % GO JARAMILLO Comment: Interpretive Data Percent cell count reference ranges are not reported, since discordance with absolute values may lead to misinterpretation of CBC data. Current Interpretive Data was last revised on 2017. Imm gran pct 0.5 % GO JARAMILLO Comment: Interpretive Data Percent [...] on 2017. Eosinophil pct 5.3 % GO JARAMILLO Comment: Interpretive Data Percent cell count reference ranges are not reported, since discordance with absolute values may lead to misinterpretation of CBC data. Current Interpretive Data was last revised on 2017. Basophil pct 0.2 % GO JARAMILLO Comment: Interpretive Data Percent cell count reference ranges are not reported, since discordance with absolute values may lead to misinterpretation of CBC data. Current Interpretive Data was last revised on 2017. Blood 07/18/2024 8:43 PM CDT 07/18/2024 8:45 PM CDT us Yo Ferreira MD LAB BLOOD ORDERABLES Final R esult [facility] [address] [facility]. Department of [address] [place] [address] * (ABNORMAL) CBC with auto differential (07/18/2024 8:43 PM CDT) WBC 6.01 3.80 - 9.90 K/cumm Hgb 7.7(L) 11.9 - 15.5 g/dL [facility] Hct 22.3(L) 35.6 - 45.5 % [facility] Plt 112(L) 150 - 400 K/cumm [facility] MPV 8.9(L) 9.1 - 12.3 fL [facility] RBC 2.41(L) 3.90 - 5.20 M/cumm [facility] MCV 92.5 81.3 - 96.4 fL [facility] MCH 32.0 27.1 - 33.3 pg [facility] MCHC 34.5 32.3 - 35.7 g/dL [facility] RDW CV 12.9 11.1 - 14.9 % [facility] RDW SD 43.4 35.7 - 48.1 fL [facility] NRBC abs 0.00 0.00 - 0.01 K/cumm [facility] Blood 07/18/2024 8:43 PM CDT 07/18/2024 8:45 PM CDT Yo Ferreira MD LAB BLOOD ORDERABLES Final R esult Performing Organization Address City/[facility]/ZIP Co de Phone Number [facility] [address] [facility] [place] [address] * (ABNORMAL) Phosphorus (07/18/2024 8:43 PM CDT) Pathologist [facility] Phosphorus, pl 1.9(L) 2.3 - 4.5 mg/dL Blood 07/18/2024 8:43 PM CDT 07/18/2024 8:45 PM CDT Yo Ferreira MD LAB BLOOD ORDERABLES Final R esult GO ROBERTCH [address] [facility] [employer] [place], [place] [address] * Magnesium (07/18/2024 8:43 PM CDT) Pathologist [facility] Magnesium 2.1 1.4 - 2.5 mg/dL Comment: Reference Data. Reference values for Labor and Delivery patients: < or = 0.7 mg/dL to > or = 7.3 mg/dL Current reference data last reviewd on 11/16/2014. Blood 07/18/2024 8:43 PM CDT 07/18/2024 8:45 PM CDT Yo Ferreira MD LAB BLOOD ORDERABLES Final R esult [facility] [address] [facility]. [place] [address] * (ABNORMAL) Basic metabolic panel (07/18/2024 8:43 PM CDT) Pathologist [facility] Sodium 139 135 - 145 mmol/L Potassium, pl 3.8 3.3 - 4.9 mmol/L [facility] Chloride 107 97 - 110 mmol/L [facility] CO2 23 22 - 32 mmol/L [facility] Anion gap 9 2 - 15 mmol/L [facility] BUN 14 6 - 25 mg/dL [facility] Creatinine 1.10 0.60 - 1.10 mg/dL [facility] Glucose 131 70 - 199 mg/dL [facility] Comment: Interpretive Data Fasting glucose [...] 2022. Calcium 8.1(L) 8.5 - 10.3 mg/dL CERYASMINE ROBERTW Blood 07/18/2024 8:43 PM CDT 07/18/2024 8:45 PM CDT Yo Ferreira MD LAB BLOOD ORDERABLES Final R esult Performing Organization Address [facility] Co de Phone Number GO ROBERTSERVANDO [address] [facility] [address] [place], [place] [address] * POCT glucose (07/18/2024 8:21 PM CDT) Glucose, POC 138 70 - 199 mg/dL Comment: Interpretive Data Glucose is assumed to be non-fasting. Fasting Glucose reference ranges are: 0 - 150 years: 70 mg/dL - 99 mg/dL Current interpretive data was last revised on 2013. POC Performer [id number] [email or web address] POC Device Number [id number] [facility] Blood 07/18/2024 8:21 PM CDT 07/18/2024 8:21 PM CDT Yo Ferreira MD LAB POCT ORDERABLES - DEVICE Final Result Performing Organization Address [facility] Co de Phone Number GO ROBERTCH [address] [facility]. [facility] [address] [place], [place] [address] * POCT glucose (07/18/2024 4:46 PM CDT) Glucose, POC 135 70 - 199 mg/dL Comment: Interpretive Data Glucose is assumed to be non-fasting. Fasting Glucose reference ranges are: 0 - 150 years: 70 mg/dL - 99 mg/dL Current interpretive data was last revised on 2013. POC Performer [id number] [facility] POC Device Number [id number] [facility] Blood 07/18/2024 4:46 PM CDT 07/18/2024 4:46 PM CDT Yo Ferreira MD LAB POCT ORDERABLES - DEVICE Final Result Performing Organization Address City/[facility] Co de Phone Number GO ROBERTCH [address] [facility] [address] [place], [place] [phone] * POCT glucose (07/18/2024 11:46 AM CDT) Glucose, POC 140 70 - 199 mg/dL Comment: Interpretive Data Glucose is assumed to be non-fasting. Fasting Glucose reference ranges are: 0 - 150 years: 70 mg/dL - 99 mg/dL Current interpretive data was last revised on 2013. POC Performer [id number] [employer] POC Device Number [id number] [facility] Blood 07/18/2024 11:4 6 AM CDT 07/18/2024 11:46 AM CDT Yo Ferreira MD LAB POCT ORDERABLES - DEVICE Final Result Performing Organization Address [facility] de Phone Number [facility] [address] [place] [facility] [address] [place] [address] * POCT glucose (07/18/2024 8:43 AM CDT) Glucose, POC 136 70 - 199 mg/dL Comment: Interpretive Data Glucose is assumed to be non-fasting. Fasting Glucose reference ranges are: 0 - 150 years: 70 mg/dL - 99 mg/dL Current interpretive data was last revised on 2013. POC Performer [id number] GO [employer] POC Device Number [id number] [facility] Blood 07/18/2024 8:43 AM CDT 07/18/2024 8:43 AM CDT Yo Ferreira MD LAB POCT ORDERABLES - DEVICE Final Result Performing Organization Address [facility] Co de Phone Number [facility] [address] [facility] [address] [place], [place] [phone] * (ABNORMAL) eGFR (07/17/2024 9:15 PM CDT) eGFR 41(L) >=60 mL/min/1. 73 [...] MD LAB BLOOD ORDERABLES Final R esult [facility] [address] [facility]. [place] [address] * (ABNORMAL) CBC without differential (07/17/2024 9:15 PM CDT) [facility] WBC 7.25 3.80 - 9.90 K/cumm Hgb 7.9(L) 11.9 - 15.5 g/dL [facility] Hct 23.4(L) 35.6 - 45.5 % [facility] Plt 118(L) 150 - 400 K/cumm [facility] MPV 8.9(L) 9.1 - 12.3 fL [facility] RBC 2.54(L) 3.90 - 5.20 M/cumm [facility] MCV 92.1 81.3 - 96.4 fL [facility] MCH 31.1 27.1 - 33.3 pg [facility] MCHC 33.8 32.3 - 35.7 g/dL [facility] RDW CV 13.0 11.1 - 14.9 % [facility] RDW SD 43.5 35.7 - 48.1 fL [facility] NRBC abs 0.00 0.00 - 0.01 K/cumm [facility] Blood 07/17/2024 9:15 PM CDT 07/17/2024 9:17 PM CDT Narrative GO ROBERTWCH - 07/17/2024 9:20 PM CDT Obtain POD 1 at 2200. us Yo Ferreira MD LAB BLOOD ORDERABLES Final R esult [facility] [address] [facility]. Department of [address] [place] [address] * (ABNORMAL) Basic metabolic panel (07/17/2024 9:15 PM CDT) Sodium 136 135 - 145 mmol/L Potassium, pl 4.1 3.3 - 4.9 mmol/L [facility] Chloride 105 97 - 110 mmol/L [facility] CO2 22 22 - 32 mmol/L [facility] Anion gap 10 2 - 15 mmol/L [facility] BUN 21 6 - 25 mg/dL [facility] Creatinine 1.40(H) 0.60 - 1.10 mg/dL [facility] Glucose 182 70 - 199 mg/dL [facility] Comment: Interpretive Data Fasting glucose [...] 2022. Calcium 7.7(L) 8.5 - 10.3 mg/dL [facility] Blood 07/17/2024 9:15 PM CDT 07/17/2024 9:17 PM CDT Narrative GO ROBERTORALIA - 07/17/2024 9:41 PM CDT Obtain POD 1 at 2200. Yo Ferreira MD LAB BLOOD ORDERABLES Final R esult Performing Organization Address [facility] de Phone Number [facility] [address] [place] [address] * POCT glucose (07/17/2024 8:49 PM CDT) Glucose, POC 188 70 - 199 mg/dL Comment: Interpretive Data Glucose is assumed to be non-fasting. Fasting Glucose reference ranges are: 0 - 150 years: 70 mg/dL - 99 mg/dL Current interpretive data was last revised on 2013. POC Performer [id number] [email or web address] POC Device Number [id number] GO ROBERTTuttoSERVANDO Blood 07/17/2024 8:49 PM CDT 07/17/2024 8:49 PM CDT Yo Ferreira MD LAB POCT ORDERABLES - DEVICE Final Result Performing Organization Address [facility] Phone Number GO ROBERTCH [address] [place] [address] * POCT glucose (07/17/2024 5:13 PM CDT) Glucose, POC 152 70 - 199 mg/dL Comment: Interpretive Data Glucose is assumed to be non-fasting. Fasting Glucose reference ranges are: 0 - 150 years: 70 mg/dL - 99 mg/dL Current interpretive data was last revised on 2013. POC Performer [id number] [email or web address] POC Device Number [id number] GO ROBERTTuttoSERVANDO Blood 07/17/2024 5:13 PM CDT 07/17/2024 5:13 PM CDT Yo Ferreira MD LAB POCT ORDERABLES - DEVICE Final Result Performing Organization Address [facility] de Phone Number GO ROBERTCH [address] [facility] [address] [place] [address] * POCT glucose (07/17/2024 12:45 PM CDT) Glucose, POC 174 70 - 199 mg/dL Comment: Interpretive Data Glucose is assumed to be non-fasting. Fasting Glucose reference ranges are: 0 - 150 years: 70 mg/dL - 99 mg/dL Current interpretive data was last revised on 2013. POC Performer [id number] [email or web address] POC Device Number [id number] GO ROBERTTuttoCH Blood 07/17/2024 12:4 5 PM CDT 07/17/2024 12:45 PM CDT Yo Ferreira MD LAB POCT ORDERABLES - DEVICE Final Result Performing Organization Address [facility] Phone Number GO ROBERTWCH [address] [facility] [address] [place] [address] * POCT glucose (07/17/2024 8:08 AM CDT) Glucose, POC 171 70 - 199 mg/dL Comment: Interpretive Data Glucose is assumed to be non-fasting. Fasting Glucose reference ranges are: 0 - 150 years: 70 mg/dL - 99 mg/dL Current interpretive data was last revised on 2013. POC Performer [id number] GO [employer] POC Device Number [id number] GO ROBERTWCH Blood 07/17/2024 8:08 AM CDT 07/17/2024 8:08 AM CDT Yo Ferreira MD LAB POCT ORDERABLES - DEVICE Final Result Performing Organization Address [facility] de Phone Number GO BJWCH [address] [facility] [address] [place] [address] * POCT glucose (07/17/2024 1:55 AM CDT) Glucose, POC 189 70 - 199 mg/dL Comment: Interpretive Data Glucose is assumed to be non-fasting. Fasting Glucose reference ranges are: 0 - 150 years: 70 mg/dL - 99 mg/dL Current interpretive data was last revised on 2013. POC Performer [id number] GO ROBERTWCH POC Device Number [id number] GO ROBERTCH Blood 07/17/2024 1:55 AM CDT 07/17/2024 1:55 AM CDT Yo Ferreira MD LAB POCT ORDERABLES - DEVICE Final Result GO ROBERTWCH [address] [facility]. Department of [address] [place] [address] * (ABNORMAL) eGFR (07/16/2024 10:07 PM CDT) Pathologist [facility] eGFR 41(L) >=60 mL/min/1. 73 m2 Comment: [...] 7 PM CDT 07/16/2024 10:26 PM CDT us Yo Ferreira MD LAB BLOOD ORDERABLES Final R esult Performing Organization Address [facility] de Phone Number GO SORTOCH [address] [facility] [address] [place] [address] * (ABNORMAL) Protime-INR (07/16/2024 10:07 PM CDT) PT 13.3(H) 9.7 - 13.0 sec INR 1.23(H) 0.90 - 1.20 [facility] Comment: Interpretive data Oral anticoagulant therapeutic [...] ORDERABLES Final R esult Performing Organization Address [facility] Co de Phone Number GO SORTO [address] [facility] [place] [address] * (ABNORMAL) CBC without differential (07/16/2024 10:07 PM CDT) WBC 13.73(H) 3.80 - 9.90 K/cumm Hgb 9.0(L) 11.9 - 15.5 g/dL [facility] Hct 27.3(L) 35.6 - 45.5 % [facility] Plt 151 150 - 400 K/cumm [facility] MPV 9.4 9.1 - 12.3 fL [facility] RBC 2.86(L) 3.90 - 5.20 M/cumm [facility] MCV 95.5 81.3 - 96.4 fL [facility] MCH 31.5 27.1 - 33.3 pg [facility] MCHC 33.0 32.3 - 35.7 g/dL [facility] RDW CV 12.8 11.1 - 14.9 % [facility] RDW SD 44.4 35.7 - 48.1 fL [facility] NRBC abs 0.00 0.00 - 0.01 K/cumm [facility] Blood 07/16/2024 10:0 7 PM CDT 07/16/2024 10:26 PM CDT [facility]ative [facility] 07/16/[facility]24 10:35 PM CDT Obtain POD 0 at 2000. us Yo Ferreira MD LAB BLOOD ORDERABLES Final R esult [facility] [address] [facility]. [place] [address] * (ABNORMAL) Basic metabolic panel (07/16/2024 10:07 PM CDT) Sodium 134(L) 135 - 145 mmol/L Potassium, pl 4.4 3.3 - 4.9 mmol/L [facility] Chloride 100 97 - 110 mmol/L [facility] CO2 19(L) 22 - 32 mmol/L [facility] Anion gap 16(H) 2 - 15 mmol/L [facility] BUN 28(H) 6 - 25 mg/dL [facility] Creatinine 1.40(H) 0.60 - 1.10 mg/dL [facility] Glucose 213(H) 70 - 199 mg/dL [facility] Comment: Interpretive Data Fasting glucose [...] Calcium 7.8(L) 8.5 - 10.3 mg/dL [facility] Blood 07/16/2024 10:0 7 PM CDT 07/16/2024 10:26 PM CDT Narrative GO JARAMILLO - 07/16/2024 10:58 PM CDT Obtain POD 0 at 2000. Yo Ferreira MD LAB BLOOD ORDERABLES Final R esult Performing Organization Address [facility] de Phone Number [facility] [address] [facility] [place] [address] * (ABNORMAL) POCT glucose (07/16/2024 9:22 PM CDT) Pathologist [facility] Glucose, POC 230(H) 70 - 199 mg/dL Comment: Interpretive Data Glucose is assumed to be non-fasting. Fasting Glucose reference ranges are: 0 - 150 years: 70 mg/dL - 99 mg/dL Current interpretive data was last revised on 2013. POC Performer [id number] [facility] POC Device Number [id number] SABIHAYASMINE [facility] Blood 07/16/2024 9:22 PM CDT 07/16/2024 9:22 PM CDT Yo Ferreira MD LAB POCT ORDERABLES - DEVICE Final Result Performing Organization Address [facility] de Phone Number [facility] [address] [facility] [place] [address] * (ABNORMAL) eGFR (07/16/2024 1:37 PM CDT) Pathologist [facility] eGFR 50(L) >=60 mL/min/1. 73 m2 Comment: [...] LAB BLOOD ORDERABLES Final Resul t [facility] [address] [facility]. [place] [address] * (ABNORMAL) CBC without differential (07/16/2024 1:37 PM CDT) Pathologist [facility] WBC 11.56(H) 3.80 - 9.90 K/cumm Hgb 10.4(L) 11.9 - 15.5 g/dL [facility] Hct 30.4(L) 35.6 - 45.5 % [facility] Plt 148(L) 150 - 400 K/cumm [facility] MPV 8.9(L) 9.1 - 12.[address] [facility] RBC 3.33(L) 3.90 - 5.20 M/cumm [facility] MCV 91.3 81.3 - 96.[address] [facility] MCH 31.2 27.1 - 33.[address] [facility] [facility] MCHC 34.2 32.3 - 35.7 g/dL [facility] RDW CV 12.4 11.1 - 14.9 % [facility] RDW SD 41.3 35.7 - 48.[address] [facility] NRBC abs 0.00 0.00 - 0.01 K/cumm [facility] Blood 07/16/2024 1:37 PM CDT 07/16/2024 1:41 PM CDT Kylie Huerta NP LAB BLOOD ORDERABLES Final Resul t Performing Organization Address City/[facility]/ZIP Co de Phone Number GO JARAMILLO [address] [employer]. [place] [address] * (ABNORMAL) Basic metabolic panel (07/16/2024 1:37 PM CDT) [facility] Sodium 139 135 - 145 mmol/L Potassium, pl 3.9 3.3 - 4.9 mmol/L [facility] Chloride 104 97 - 110 mmol/L [facility] CO2 20(L) 22 - 32 mmol/L [facility] Anion gap 15 2 - 15 mmol/L [facility] BUN 26(H) 6 - 25 mg/dL [facility] Creatinine 1.20(H) 0.60 - 1.10 mg/dL [facility] Glucose 170 70 - 199 mg/dL [facility] Comment: Interpretive Data Fasting glucose >/= 126 [...] Calcium 8.2(L) 8.5 - 10.3 mg/dL [facility] Blood 07/16/2024 1:37 PM CDT 07/16/2024 1:41 PM CDT us Kylie Huerta NP LAB BLOOD ORDERABLES Final Resul t Performing Organization Address [facility]/ZIP Co de Phone Number GO SORTOCH [address] [employer] Department [place] [address] * POCT glucose (07/16/2024 10:53 AM CDT) Glucose, POC 132 70 - 199 mg/dL Comment: Interpretive Data Glucose is assumed to be non-fasting. Fasting Glucose reference ranges are: 0 - 150 years: 70 mg/dL - 99 mg/dL Current interpretive data was last revised on 2013. POC Performer [id number] [facility] POC Device Number [id number] [facility] Blood 07/16/2024 10:5 3 AM CDT 07/16/2024 10:53 AM CDT Yo Ferreira MD LAB POCT ORDERABLES - DEVICE Final Result Performing Organization Address [facility] de Phone Number [facility] [address] [place] [employer] [facility] [address] [place] [address] * POCT glucose (07/16/2024 10:27 AM CDT) Glucose, POC 129 70 - 199 mg/dL Comment: Interpretive Data Glucose is assumed to be non-fasting. Fasting Glucose reference ranges are: 0 - 150 years: 70 mg/dL - 99 mg/dL Current interpretive data was last revised on 2013. POC Performer [id number] [facility] [employer] POC Device Number [id number] [facility] Blood 07/16/2024 10:2 7 AM CDT 07/16/2024 10:27 AM CDT Yo Ferreira MD LAB POCT ORDERABLES - DEVICE Final Result Performing Organization Address [facility] de Phone Number [facility] [address] [facility] [address] [place] [address] * Surgical pathology (07/16/2024 9:28 AM CDT) Tissue (Rectum, Resection) 07/16/2024 9:28 AM CDT Tissue specimen (specimen) (Colon, Colostomy Stoma) 07/16/2024 10:19 AM CDT Narrative PATHOLOGY BJW - 07/26/2024 12:46 PM CDT EPIC results best viewed via link to PDF [facility] [place] [address] Note to Patients: This report may contain [...] Gender: F : 1960 (Age: 64) Address: [address] [place], [place] [address] Hospital #: [id number] Taken:07/16/2024 Received:07/16/2024 Reported: 07/26/2024 Patient Type: [facility] EP INPAT Client BJW Service: Surgery Location: Physician(s): Monserrat Rubio M.D. Diagnosis: A. Rectum, resection - Rectal wall with cryptitis, erosion and prominent lymphoid aggregates; see comment - Negative for granuloma, dysplasia, and viral inclusions - Five benign lymph nodes B. Colostomy, stoma, takedown - Bowel wall with reactive epithelial changes and mild hemorrhage - No viable squamous mucosa identified (additional sections submitted) [facility]/07/26/2024 12:46 By this signature, I attest [...] as follows: A1-A2 Resection margins, shaved, A3 Senior Education Specialist sections of rectal mucosa, A4 Lymph nodes, [...] interpretation for this case was performed at [facility], Department of Surgical Pathology, [address] [facility], [id number], [place] [address] CLIA # [id number] The performance characteristics of some immunohistochemical stains, fluorescence in-situ hybridization tests and immunophenotyping by flow cytometry cited in this report (if any) were determined by the Surgical Pathology and Flow Cytometry Departments at [facility] as part of an ongoing clinical quality rn program and in compliance with federally mandated [...] Cytometry Departments of [facility]. It has not been cleared or approved by the U. S. Food and Drug Administration. IMAGES AND SCANNED DOCUMENTS, IF INCLUDED, ONLY VIEWABLE IN PDF VERSION OF REPORT Yo Ferreira MD LAB PATHOLOGY ORDERABLES Fin al Result Performing Organization Address [facility] Co de Phone Number PATHOLOGY [facility] [phone] * POCT glucose (07/16/2024 8:17 AM CDT) Glucose, POC 86 70 - 199 mg/dL Comment: Interpretive Data Glucose is assumed to be non-fasting. Fasting Glucose reference ranges are: 0 - 150 years: 70 mg/dL - 99 mg/dL Current interpretive data was last revised on 2013. POC Performer [id number] [employer] POC Device Number [id number] GO [employer]ARAM[employer] Blood 07/16/2024 8:17 AM CDT 07/16/2024 8:17 AM CDT Yo Ferreira MD LAB POCT ORDERABLES - DEVICE Final Result Performing Organization Address City/[facility] Co de Phone Number GO SORTOCH [address] [facility]. [place] [address] * MN AN ELECTIVE ENDOTRACHEAL AIRWAY, [place] AN PROCEDURE PLACEHOLDER (07/16/2024 8:10 AM CDT) Narrative Taryn Krishna CRNA - 07/16/2024 8:10 AM CDT Taryn Krishna CRNA 07/16/2024 8:11 AM Airway Patient location: OR Urgency: elective Indications for airway management: anesthesia Difficult airway: no Staff: Placed by: MATTHEW: Taryn Krishna CRNA Airway prep: Preoxygenated: yes [...] mouth in preinduction condition. Taped and secured Bharathi Doran MD ANESTHESIA ORDERABLES Samantha l Result * FL Fluoroscopy < 1 Hour (07/16/2024 8:00 AM CDT) Narrative RAD_PACS_BJWCH - 07/16/2024 1:57 PM CDT The images from this study are not interpreted by Radiology. Please refer to the physician's procedure / OR operative note. Alvarado Blackman DO IMG FLUOROSCOPY PROCEDURES Fin al Result Performing Organization Address [facility] Co de Phone Number RAD_PACS_BJWCH * Check Sample (07/16/2024 7:42 AM CDT) ABO Rh O Positive GO ROBERTWCH HCLL OTHER 07/16/2024 7:42 AM CDT 07/16/2024 8:52 AM CDT Yo Ferreira MD LAB BLOOD ORDERABLES Final R esult Performing Organization Address City/[facility] Co de Phone Number GO ROBERTWCH [address] [facility]. Department of [address] [place] [address] * Type and screen (07/16/2024 7:18 AM CDT) Maira, indirect Negative GO JARAMILLO ABO Rh O Positive GO YESICAAlyseSERVANDO Blood 07/16/2024 7:18 AM CDT 07/16/2024 7:41 AM CDT Narrative GO NOREENCH - 07/16/2024 8:51 AM CDT Has the patient had Daratumumab or Isatuximab in the past 6 months?->Unknown Bong De Santiago DO LAB BLOOD BANK TEST ORDER INO Final Result Performing Organization Address [facility] Co de Phone Number [facility] [address] [employer]. [facility] [address] [place] [address] * POCT glucose (07/16/2024 6:08 AM CDT) Glucose, POC 85 70 - 199 mg/dL Comment: Interpretive Data Glucose is assumed to be non-fasting. Fasting Glucose reference ranges are: 0 - 150 years: 70 mg/dL - 99 mg/dL Current interpretive data was last revised on 2013. POC Performer [id number] GO [employer]ARAM[employer] POC Device Number [id number] SABIHAYASMINE JARAMILLO Blood 07/16/2024 6:08 AM CDT 07/16/2024 6:08 AM CDT Yo Ferreira MD LAB POCT ORDERABLES - DEVICE Final Result Performing Organization Address City/[facility]/ZIP Co de Phone Number GO BJWCH [address] [facility] [address] [facility] [address] [place] [address] * Colonoscopy (07/15/2024 10:39 AM CDT) Anatomical Region Laterality Modality Other Narrative Procedure Note Yo Ferreira MD - 07/15/2024 10:39 AM CDT [facility] Patient Name: Farhana Russo Procedure Date: 07/15/2024 10:39 AM Date of : 1960 Admit Type: Outpatient Age: 64 Gender: Female Attending MD: Yo Ferreira M.D. Room: [facility] ENDOSCOPY ROOM 02 Note Status: Finalized [...] The scope was passed under direct vision.The [id number] Endoscsope was introduced through the descending colostomy and advanced to the the cecum, identified by appendiceal orifice andileocecal valve. The colonoscopy was performed with ease. The patient tolerated the procedure well. The qualityof the bowel preparation was excellent. The quality of the bowel preparation was evaluated using the BBPS ([place] Bowel Preparation Scale) with scores of:Right Colon [...] On: 07/15/2024 10:39 AM Recognized by the [place] [employer] for promoting quality in endoscopy Yo Ferreira MD ENDOSCOPY PROCEDURES Final R [...] * POCT glucose (07/15/2024 8:37 AM CDT) [facility] Glucose, POC 106 70 - 199 mg/dL Blood 07/15/2024 8:3 7 AM CDT 07/15/2024 8:37 AM CDT Yo Ferreira MD LAB POCT ORDERABLES - DEVICE Final Result GO [facility] [address] [facility] Department of Laboratories [place], [place] [id number] * (ABNORMAL) eGFR (07/02/2024 1:20 PM CDT) [facility] eGFR 41(L) >=60 mL/min/1. 73 m2 Comment: [...] MD LAB BLOOD ORDERABLES Final R esult [facility] [address] [facility] [place] [address] * (ABNORMAL) Urinalysis reflex to microscopic (07/02/2024 1:20 PM CDT) Color, ur Yellow Yellow Clarity, ur Clear Clear [facility] Specific gravity, ur 1.021 1.003 - 1.030 [facility] pH, urine 6.0 [facility] Comment: Interpretive Data U rine pH is affected by diet, medications, systemic acid-base disturbances, and renal tubular function. pH may affect urinary stone formation. For example, urine pH below 6.0 may help reduce the tendency for calcium phosphate stones and pH greater than 6.0 may reduce the tendency for uric acid stone formation. Source: Gilbert [employer] Current Interpretive Data was last revised on 2017 Protein, ur ql 1+(A) Negative [facility] Glucose, ur ql Negative Negative [facility] Ketones, ur Negative Negative [facility] Bilirubin, ur Negative Negative [facility] Blood, ur 2+(A) Negative [facility] Urobilinogen, ur <2.0 <2.0 mg/dL [facility] Nitrite, ur Negative Negative [facility] Leukocyte esterase, ur 2+(A) Negative [facility] UA reflex comment Reflex to microscopic UA will be performed. [facility] Urine 07/02/2024 1:20 PM CDT 07/02/2024 2:26 PM CDT Bong De Santiago LAB URINE ORDERABLES Samantha l Result Performing Organization Address [facility] de Phone Number [facility] [place] [address] * (ABNORMAL) Urinalysis, microscopic only (07/02/2024 1:20 PM CDT) WBC, ur 11-20(A) 0 - 5 /HPF RBC, ur 21-50(A) 0 - 2 /HPF [facility] Epithelial cells, squamous, ur 1-5 0 - 5 /HPF [facility] Mucous, ur Present(A) [facility] Urine 07/02/2024 1:20 PM CDT 07/02/2024 2:26 PM CDT Bong De Santiago LAB URINE ORDERABLES Samantha l Result Performing Organization Address [facility] de Phone Number [facility] [place] [address] * (ABNORMAL) CBC without differential (07/02/2024 1:20 PM CDT) WBC 4.52 3.80 - 9.90 K/cumm Hgb 11.2(L) 11.9 - 15.5 g/dL [facility] Hct 32.5(L) 35.6 - 45.5 % [facility] Plt 155 150 - 400 K/cumm [facility] MPV 9.5 9.1 - 12.3 fL [facility] RBC 3.64(L) 3.90 - 5.20 M/cumm [facility] MCV 89.3 81.3 - 96.4 fL [facility] MCH 30.8 27.1 - 33.3 pg [facility] MCHC 34.5 32.3 - 35.7 g/dL [facility] RDW CV 12.6 11.1 - 14.9 % [facility] RDW SD 41.2 35.7 - 48.1 fL [facility] NRBC abs 0.00 0.00 - 0.01 K/cumm [facility] Blood 07/02/2024 1:20 PM CDT 07/02/2024 2:30 PM CDT us Bong De Santiago DO LAB BLOOD ORDERABLES Samantha lott Result [facility] [address] [facility] [place] [address] * (ABNORMAL) Basic metabolic panel (07/02/2024 1:20 PM CDT) Sodium 138 135 - 145 mmol/L Potassium, pl 4.1 3.3 - 4.9 mmol/L [facility] Chloride 103 97 - 110 mmol/L [facility] CO2 28 22 - 32 mmol/L [facility] Anion gap 7 2 - 15 mmol/L [facility] BUN 30(H) 6 - 25 mg/dL [facility] Creatinine 1.42(H) 0.60 - 1.10 mg/dL [facility] Glucose 105 70 - 199 mg/dL [facility] Comment: Interpretive Data Fasting glucose [...] 2022. Calcium 9.1 8.5 - 10.3 mg/dL [facility] Blood 07/02/2024 1:20 PM CDT 07/02/2024 2:49 PM CDT Narrative GO ROBERT - 07/02/2024 3:18 PM CDT This order is is required for all post operative patients receiving lovenox. us Yo Ferreira MD LAB BLOOD ORDERABLES Final R esult [facility] [address] [facility] [place] [address] * SCAN - LABS (06/16/2024) us Provider [...] revised on 2017. Triglycerides 75 <=149 mg/dL [facility] Comment: Interpretive Data Ages < or [...] revised on 2017. HDL 27(L) >=40 mg/dL [facility] Comment: Interpretive Data Ages < or = [...] 2017. LDL, calculated 28 <=129 mg/dL GO [facility] Comment: Interpretive Data Ages < or [...] revised on 2023. Non-HDL Cholesterol 44 mg/dL [facility] Comment: Interpretive Data Ages < or = [...] on 2017. Chol/HDL ratio 3 [facility] Blood 12/04/2023 5:24 PM CDT 12/04/2023 5:34 PM CDT Narrative [facility] - 12/04/2023 7:03 PM CDT This lipid panel was automatically ordered due to a significant change in Troponin. The dietary status of the patient at the collection time should be correlated with the lipid results. Álvaro Radford MD LAB BLOOD ORDERABLES Final Result Performing Organization Address [facility] de Phone Number [facility] of [address] [place] [address] * (ABNORMAL) Hemoglobin A1c (11/04/2023 7:56 AM CDT) Pathologist [facility] Hgb A1C 5.7(H) 4.0 - 5.6 % Estimated Average Glucose 117 mg/dL [facility] Comment: The ADA recommends reporting an [...] ORDERABLES F inal Result Performing Organization Address [facility] de Phone Number [facility] of [address] [place] [address] * Hepatitis C antibody Blood (10/27/2023 9:30 AM CDT) [facility] Hep C Ab Nonreactive Nonreactive Comment: Interpretive [...] last revised on 2019. Testing performed by: [facility], [facility], [place]., [address] Blood 10/27/2023 9:30 AM CDT 10/27/2023 12:43 PM CDT us Gildardo Jung MD LAB MICROBIOLOGY - GENERAL OR DERABLES Edited Result - Final [facility] [address] [facility]. Department of [address] [place] [address] from Last 3 Months or Most Recently Relevant to Health Maintenance [place] [address] MEDICARE [facility] MEDICARE [facility] Advance Directives For more information, please contact: [phone] * Full Code (Latest Code Status on [...] 5:00 PM 11/06/2023 7:28 PM Care Teams Fire Safety Manager Relationship Specialty Start Date End Date Kaushal Heath MD [address] [place] [address] PCP - General Internal Medicine 10/30/23 Bigg Delarosa MD [address] [place] [address] Referring Physician Gastroenterology 10/15/23 Jefe Choe MD [address] [facility] [address] [facility] [address] [place] [address] Referring Physician Gastroenterology 10/15/23 Melissa Rhodes MD [address] [facility] GYNECOLOGIC ONCOLOGY[address] [address] Consulting Physician Gynecologic Oncology 10/30/23
--- OUTSIDE RECORDS SUMMARY | 2024-09-08 09:15 | XMS_ITS | Patient Health Record ---
Author Organization [facility] Address [address] [place], [place] [address] Care Team Providers Care Carrier Driver Name Role Phone JENNYFER KELLY Unavailable [phone] Kylie Ghosh Unavailable Unavailable Reason For Referral No Information Plan Of Treatment No Information Insurance Providers Payer Name Payer Address Payer Phone Subscriber Number Group Number Insured Name Patient Relationship to Insured Coverage Start Date Coverage End Date SRINIVASR Ludmila / ANURADHA [address] [id number] DARIUS GARCIAS Self - patient is the insured
--- OUTSIDE RECORDS SUMMARY | 2024-09-08 09:15 | XMS_ITS | Encounter Summary ---
Author Organization [facility] Address [address] [place] [address] Phone Care Team Providers Care Manager Administrative Name Role Phone Bigg Delarosa MD Unavailable [phone] Jefe Choe MD Unavailable + Melissa Rhodes MD Unavailable [phone] Kaushal Heath MD Primary Care Provider + [phone] Encounter Details Date Type Department Care Team (Late st Contact Info) Description 06/16/2024 Orders Only [facility] Scanning, Provider Social History Tobacco Use Types Packs/Day Years Used Date Smoking Tobacco: Never Passive Smoke Exposure: Never Smokeless Tobacco: Never [facility] Utilities Answer Date Recorded In the past 12 months has [employer], gas, oil, or water [employer] threatened to shut off services in your [...] often do you attend chur ch or jewish services? 1 to 4 times per year [...] any time in the past [address] [facility], were you homeless or living in a [...] documented as of this encounter Care Teams Manager Administrative Relationship Specialty Start Date End Date Kaushal Heath MD [address] [place] [address] PCP - General Internal Medicine 10/30/23 Bigg Delarosa MD [address] [address] Referring Physician Gastroenterology 10/15/23 Jefe Choe MD [address] [address] [place] [address] Referring Physician Gastroenterology 10/15/23 Melissa Rhodes MD [address] [facility], [address] [address] Consulting Physician Gynecologic Oncology 10/30/23 documented as of this encounter
[2024-09-08 09:38] LABS: Add Urine Microscopic? YES; Appearance Urine Clear (Clear); Glucose Urine UA Negative (Negative); Leukocyte Esterase Ur 1+ (Negative); Nitrate Urine Negative (Negative); Specific Grav Ur <= 1.005 (1.010-1.020)
== END 2024-09-08 09:00 | disposition home or self-care (01) ==
PROVIDERS: PCP Internal Medicine; Visit Provider Internal Medicine
DX: N18.31 Chronic kidney disease, stage 3a (principal); R31.29 Other microscopic hematuria; N20.0 Calculus of kidney; N21.0 Calculus in bladder; N13.30 Unspecified hydronephrosis
CPT/HCPCS: 76770; 81001; 87086; 88112

== ENCOUNTER 2024-09-25 07:45 | Outpatient (CLI) | payer MEDICARE, OTHER, SELFPAY ==
--- OUTSIDE RECORDS SUMMARY | 2024-09-25 07:49 | XMS_ITS | Encounter Summary ---
Author Organization [facility] Address [address] [place] [address] Phone Care Team Providers Care Consultant Intern Name Role Phone Bigg Delarosa MD Unavailable [phone] Jefe Choe MD Unavailable + Melissa Rhodes MD Unavailable [phone] Kaushal Heath MD Primary Care Provider + [phone] Encounter Details Date Type Department Care Team (Late st Contact Info) Description 06/16/2024 Orders Only [facility] Scanning, Provider Social History Tobacco Use Types Packs/Day Years Used Date Smoking Tobacco: Never Passive Smoke Exposure: Never Smokeless Tobacco: Never [facility] Utilities Answer Date Recorded In the past 12 months has [employer], gas, oil, or water [employer] threatened to shut off services in your [...] often do you attend chur ch or baptism services? 1 to 4 times per year 11/29/2023 Do you belong to any clubs o r organizations such as nondenominational groups, unions, fraternal or athletic groups, or [...] any time in the past 12 m [facility], were you homeless or living in a intermediate (including now)? No 11/29/2023 Personal Safety Answer [...] documented as of this encounter Care Teams Consultant Intern Relationship Specialty Start Date End Date Kaushal Heath MD [address] [place] [address] PCP - General Internal Medicine 10/30/23 Bigg Delarosa MD [address] [address] Referring Physician Gastroenterology 10/15/23 Jefe Choe MD [address] [address] [place] [address] Referring Physician Gastroenterology 10/15/23 Melissa Rhodes MD [address] [facility], [address] [address] Consulting Physician Gynecologic Oncology 10/30/23 documented as of this encounter
--- OUTSIDE RECORDS SUMMARY | 2024-09-25 07:49 | XMS_ITS | Clinical Summary ---
Author Organization [facility] Address [address] [place] [address] Care Team Providers Care Cna Gna Name Role Phone Bigg Delarosa MD Unavailable [phone] Jefe Choe MD Unavailable + Melissa Rhodes MD Unavailable [phone] Kaushal Heath MD Primary Care Provider [phone] Allergies Active Allergy Reactions Criticality Noted Date [...] total) by mouth every morning Active prenat.vits,erica ,[id number]-ardmt tabletIndicatio ns:supplement Take 1 tablet by mouth [...] 12/05/19 Assessment & Plan (12/26/2023 11:47 AM FOUNDRY LABORER COREROOM): Patient is a 63 y.o. female with a history of hypertension, type 2 diabetes, and inflammatory bowel disease who is admitted from [facility] for progressive weight loss and nausea in the setting of multiple admissions for diverticulitis complicated by contained sigmoid perforation, scattered liver and spleen abscesses and adnexal mass. She was admitted to [facility] on 11/24 for further workup and [...] Patient went to the OR 12/23 with CROCHET MACHINE OPERATOR, CRS and urology for ex lap, left colectomy with end colostomy, LIBRA, BSO and ureteral stent placement. Surgery reporting source control archived. Given source control has been achieved, we are planning on 5 days of antibiotics from surgery. 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 No plans for repeat imaging given improvement. Continue antibiotics as described elsewhere. Pulmonary nodule 11/26/2023 Assessment & Plan (12/26/2023 11:38 AM FOUNDRY LABORER COREROOM): Patient is a 63 y.o. female with a history of hypertension, type 2 diabetes, and inflammatory bowel disease who is admitted from [facility] for progressive weight loss and nausea in the setting of multiple admissions for diverticulitis complicated by contained sigmoid perforation, scattered liver and spleen abscesses and adnexal mass. She was admitted to [facility] on 11/24 for further workup and [...] 11/26/2023 Assessment & Plan (12/25/2023 12:55 PM FOUNDRY LABORER COREROOM): Near resolution of hepatic and splenic abscesses. [...] Encounters Date Type Department Care Team Description 09/13/2024 8:24 AM CDT - 09/13/2024 11:59 PM CDT Hospital Encounter [facility] Center [address] [place] [address] Renal calculus, left Discharge Disposition: Discharge to home or self care 09/10/2024 Telephone [facility] 1 [place] [address] Polo Jackson 09/09/2024 Documentation [facility] Physicians [facility] Surgery [address] [facility] [address] [place] [address] Ivett Roberts RMA 08/17/2024 1:45 PM CDT Office Visit [facility] Surgery [address] [place] [address] Medical Office Building [address] [place] [address] Yo Ferreira MD Ileostomy present (HCC) (Primary Dx) 07/21/2024 Telephone [facility] Surgery [address] [facility] Medical Office Building [address] [place] [address] Mel May RN 07/16/2024 7:17 AM CDT Anesthesia Event [facility] Operating Room [address] [place] [address] Bharathi Doran MD Khodamoradi, Shahrdad, MD 07/16/2024 7:15 AM CDT - 07/16/2024 11:30 AM CDT Surgery [facility] Operating Room [address] [place] [address] Yo Ferreira MD COLOSTOMY TAKEDOWN 07/16/2024 5:20 AM CDT - 07/20/2024 11:39 AM CDT Hospital Encounter [facility] [address] [address] [place] [address] Yo Ferreira MD Staghorn calculus (Primary Dx); Colostomy in place (HCC); Diverticulitis Discharge Disposition: Discharge to home or self care 07/15/2024 10:36 AM CDT - 07/15/2024 11:06 AM CDT Surgery [facility] at [address] [address] Yo Ferreira MD COLONOSCOPY THROUGH COLOSTOMY 07/15/2024 10:33 AM CDT Anesthesia Event [facility] at [facility] [address] [place] [address] Brian Aldana MD 07/15/2024 7:53 AM CDT - 07/15/2024 11:59 PM CDT Hospital Encounter [facility] at [facility] [address] [place] [address] Hepatic abscess Discharge Disposition: Discharge to home or self care 07/15/2024 7:44 AM CDT - 07/15/2024 11:39 AM CDT Hospital Encounter [facility] at [facility] [address] [place] [address] Yo Ferreira MD Discharge Disposition: Discharge to home or self care 07/15/2024 Telephone [facility] Surgery [address] [facility] 2nd [address] [place] [address] Wilma Vega, A Surgery Confirmation 07/08/2024 Telephone [facility] Surgery [address] [facility] 2[address] [place] [address] Wilma Vega, A Colonoscopy 07/08/2024 Telephone [facility] Gastroenterology [address] [facility] 12th [place] [address] [place] [address] Katie Otero, A 07/07/2024 Orders Only [facility] Surgery [address] [place] [address] Medical Office Building [address] [place] [address] Yo Ferreira MD 07/07/2024 Telephone [facility] Surgery [address] [facility] 2nd [address] [place] [address] Marlyn Dunn, A Colonoscopy 07/06/2024 Orders Only [facility] Surgery [address] [place] [address] Medical Office Building [address] [place] [address] Yo Ferreira MD 07/02/2024 12:30 PM CDT Pre-Admission Testing [facility] for Preoperative Assessment and Planning [facility] Advanced [facility] ([facility]) [address] [place] [address] Preoperative testing (Primary Dx); Colostomy in place (HCC) 06/28/2024 Telephone [facility] Gastroenterology [address] [facility] 12th [place] [address] [place] [address] Che Gamble, prop drawer Results from Last 3 Months Immunizations Immunization Administration [...] Diverticulitis Kidney stone Type 2 diabetes mellitus Colostomy in place (HCC) 01/13/2024 Family History Medical History Relation Name Comments Emphysema Father Diabetes Mother Anesthesia problems Neg Hx Malig Hypertension Neg Hx Malig Hyperthermia Neg Hx Pseudochol deficiency Neg Hx Relation Name Status Comments Father Mother Social History Tobacco Use Types Packs/Day Years Used Date Smoking Tobacco: Never Passive Smoke Exposure: Never Smokeless Tobacco: Never Tobacco Cessation:Counseling Given: Not Answered [facility] [employer] Answer Date Recorded In the past 12 months has [employer], oil, or water [employer] threatened to shut off services in your [...] 07/19/2024 How often do you attend chur or confucianism services? 1 to 4 times per year 07/19/2024 Do you belong to any clubs o r organizations such as pentecostal groups, unions, fraternal or athletic groups, or [...] time in the past 12 m [facility], were you homeless or living in a senior care (including now)? No 07/19/2024 Personal Safety Answer [...] Panel 12/03/2024 12/04/2023, 10/27/2023 eGFR 07/18/2025 07/18/2024, 05/02/2024, 07/16/2024, Additional history exists Fall Risk Assessment 07/20/2025 07/20/2024 DTaP/Tdap/Td Vaccine (3 - Td or Tdap) 10/27/2030 10/27/2020, 12/29/2019 Colon Cancer Screening-Colonoscopy 07/15/20342024, 11/13/2023 Hepatitis B Screening Completed 10/27/2023 Hepatitis C Screening Completed 10/27/2023 Medical Devices Implanted Type Area Crtts Device Identifier Shelf Expiration Date Model / Serial / Lot [employer] Stent Ureteral Set Double Pigtail Radiopaque Tip Universa [id number] Polyurethane Hydrophilic Coated [id number] - [id number] Implanted:Qty: 1 on 07/16/[address] [facility] Left: Ureter [employer] 01/27/2027 [id number] / / [id number] Procedures Procedure Name Priority Date/Time Associated Diagnosis [...] DEVICE Routine 07/16/2024 8 :17 AM CDT TX AN PROCEDURE PLACEHOLDER Routine 07/16/2024 8:10 AM CDT TX AN ELECTIVE ENDOTRACHEAL AIRWAY Routine 07/16/2024 8:10 [...] Routine 07/02/2024 1:20 PM CDT Preoperative testing LIPID PANEL STAT 12/04/2023 5:24 PM CDT HEMOGLOBIN A1C STAT 11/04/2023 7:56 AM CDT HEPATITIS C ANTIBODY Routine 10/27/2023 9:30 AM CDT History of chronic ulcerative colitis High risk medications (not anticoagulants) long-term use from Last 3 Months or Most Recently Relevant to Health Maintenance Results * POCT glucose (07/20/2024 8:24 AM CDT) [facility] Glucose, POC 122 70 - 199 mg/dL Comment: Interpretive Data Glucose is assumed to be non-fasting. Fasting Glucose reference ranges are: 0 - 150 years: 70 mg/dL - 99 mg/dL Current interpretive data was last revised on 2013. POC Performer [id number] GO JARAMILLO POC Device Number [id number] GO SORTO Blood 07/20/2024 8:24 AM CDT 07/20/2024 8:24 AM CDT us Yo Ferreira MD LAB POCT ORDERABLES - DEVICE Final Result [facility] [address] [facility] [place] [address] * (ABNORMAL) CBC without differential (07/19/2024 9:10 PM CDT) [facility] WBC 4.86 3.80 - 9.90 K/cumm Hgb 7.9(L) 11.9 - 15.5 g/dL [facility] Hct 23.5(L) 35.6 - 45.5 % [facility] Plt 136(L) 150 - 400 K/cumm [facility] MPV 9.4 9.1 - 12.3 fL [facility] RBC 2.57(L) 3.90 - 5.20 M/cumm [facility] MCV 91.4 81.3 - 96.4 fL [facility] MCH 30.7 27.1 - 33.3 pg [facility] MCHC 33.6 32.3 - 35.7 g/dL [facility] RDW CV 12.7 11.1 - 14.9 % [facility] RDW SD 42.1 35.7 - 48.1 fL [facility] NRBC abs 0.00 0.00 - 0.01 K/cumm [facility] Blood 07/19/2024 9:10 PM CDT 07/19/2024 9:20 PM CDT us Yo Ferreira MD LAB BLOOD ORDERABLES Final R esult [facility] [address] [facility] Department [place] [address] * POCT glucose (07/19/2024 8:24 PM CDT) [facility] Glucose, POC 130 70 - 199 mg/dL Comment: Interpretive Data Glucose is assumed to be non-fasting. Fasting Glucose reference ranges are: 0 - 150 years: 70 mg/dL - 99 mg/dL Current interpretive data was last revised on 2013. POC Performer [id number] [facility] POC Device Number [id number] [facility] Blood 07/19/2024 8:24 PM CDT 07/19/2024 8:24 PM CDT Yo Ferreira MD LAB POCT ORDERABLES - DEVICE Final Result Performing Organization Address [facility] Phone Number GO ROBERTCH [address] [place] [address] * POCT glucose (07/19/2024 4:58 PM CDT) Glucose, POC 135 70 - 199 mg/dL Comment: Interpretive Data Glucose is assumed to be non-fasting. Fasting Glucose reference ranges are: 0 - 150 years: 70 mg/dL - 99 mg/dL Current interpretive data was last revised on 2013. POC Performer [id number] [employer] POC Device Number [id number] GO ROBERTWhat's TrendingSERVANDO Blood 07/19/2024 4:58 PM CDT 07/19/2024 4:58 PM CDT Yo Ferreira MD LAB POCT ORDERABLES - DEVICE Final Result Performing Organization Address [facility] Phone Number GO ROBERTCH [address] [place] [address] * POCT glucose (07/19/2024 12:46 PM CDT) Glucose, POC 96 70 - 199 mg/dL Comment: Interpretive Data Glucose is assumed to be non-fasting. Fasting Glucose reference ranges are: 0 - 150 years: 70 mg/dL - 99 mg/dL Current interpretive data was last revised on 2013. POC Performer [id number] CERYASMINE [employer] POC Device Number [id number] CERYASMINE ROBERTWCH Blood 07/19/2024 12:4 6 PM CDT 07/19/2024 12:46 PM CDT Yo Ferreira MD LAB POCT ORDERABLES - DEVICE Final Result Performing Organization Address City/[facility]/ZIP Co de Phone Number [facility] [address] [address] [employer] [place] [place], [place] [id number] * (ABNORMAL) CBC without differential (07/19/2024 8:57 AM CDT) [facility] WBC 5.10 3.80 - 9.90 K/cumm Hgb 8.6(L) 11.9 - 15.5 g/dL [facility] Hct 25.2(L) 35.6 - 45.5 % [facility] Plt 130(L) 150 - 400 K/cumm [facility] MPV 9.3 9.1 - 12.3 fL [facility] RBC 2.71(L) 3.90 - 5.20 M/cumm [facility] MCV 93.0 81.3 - 96.4 fL [facility] MCH 31.7 27.1 - 33.3 pg [facility] MCHC 34.1 32.3 - 35.7 g/dL [facility] RDW CV 12.9 11.1 - 14.9 % [facility] RDW SD 44.0 35.7 - 48.1 fL [facility] NRBC abs 0.00 0.00 - 0.01 K/cumm [facility] Blood 07/19/2024 8:57 AM CDT 07/19/2024 9:04 AM CDT Kylie Huerta MANAGER INTERN LAB BLOOD ORDERABLES Final Resul t Performing Organization Address [facility] de Phone Number [facility] [address] [address] [facility] [place] [address] * POCT glucose (07/19/2024 8:00 AM CDT) [facility] Glucose, POC 100 70 - 199 mg/dL Comment: Interpretive Data Glucose is assumed to be non-fasting. Fasting Glucose reference ranges are: 0 - 150 years: 70 mg/dL - 99 mg/dL Current interpretive data was last revised on 2013. POC Performer [id number] [facility] POC Device Number [id number] GO ROBERTWCH Blood 07/19/2024 8:00 AM CDT 07/19/2024 8:00 AM CDT Yo Ferreira MD LAB POCT ORDERABLES - DEVICE Final Result Performing Organization Address [facility] Co de Phone Number GO ROBERTCH [address] [facility] [place] [place] [address] * (ABNORMAL) eGFR (07/18/2024 8:43 PM CDT) Pathologist [facility] eGFR 55(L) >=60 mL/min/1. 73 m2 Comment: [...] ORDERABLES Final R esult Performing Organization Address City/[facility]/ZIP Co de Phone Number GO ROBERTWCH [address] [facility] [email or web address] [place], [place] [id number] * Differential, auto (07/18/2024 8:43 PM CDT) Neutrophil abs 4.04 1.50 - 6.50 K/cumm Imm gran abs 0.03 0.00 - 0.10 K/cumm [facility] Lymphocyte abs 1.20 0.80 - 3.30 K/cumm [facility] Monocyte abs 0.41 0.20 - 0.80 K/cumm [facility] Eosinophil abs 0.32 0.00 - 0.50 K/cumm [facility] Basophil abs 0.01 0.00 - 0.10 K/cumm [facility] Neutrophil pct 67.2 % [facility] Comment: Interpretive Data Percent cell count reference ranges are not reported, since discordance with absolute values may lead to misinterpretation of CBC data. Current Interpretive Data was last revised on 2017. Imm gran pct 0.5 % [facility] Comment: Interpretive Data Percent cell count reference ranges are not reported, since discordance with absolute values may lead to misinterpretation of CBC data. Current Interpretive Data was last revised on 2017. Lymphocyte pct 20.0 % [facility] Comment: Interpretive Data Percent cell count reference ranges are not reported, since discordance with absolute values may lead to misinterpretation of CBC data. Current Interpretive Data was last revised on 2017. Monocyte pct 6.8 % [facility] Comment: Interpretive Data Percent cell count reference ranges are not reported, since discordance with absolute values may lead to misinterpretation of CBC data. Current Interpretive Data was last revised on 2017. Eosinophil pct 5.3 % [facility] Comment: Interpretive Data Percent cell count reference ranges are not reported, since discordance with absolute values may lead to misinterpretation of CBC data. Current Interpretive Data was last revised on 2017. Basophil pct 0.2 % [facility] Comment: Interpretive Data Percent cell count reference ranges are not reported, since discordance with absolute values may lead to misinterpretation of CBC data. Current Interpretive Data was last revised on 2017. Blood 07/18/2024 8:43 PM CDT 07/18/2024 8:45 PM CDT us Yo Ferreira MD LAB BLOOD ORDERABLES Final R esult [facility] [address] [facility] Department [place] [address] * (ABNORMAL) CBC with auto differential (07/18/2024 8:43 PM CDT) WBC 6.01 3.80 - 9.90 K/cumm Hgb 7.7(L) 11.9 - 15.5 g/dL [facility] Hct 22.3(L) 35.6 - 45.5 % [facility] Plt 112(L) 150 - 400 K/cumm [facility] MPV 8.9(L) 9.1 - 12.3 fL [facility] RBC 2.41(L) 3.90 - 5.20 M/cumm [facility] BJWCH MCV 92.5 81.3 - 96.4 fL [facility] MCH 32.0 27.1 - 33.3 pg [facility] MCHC 34.5 32.3 - 35.7 g/dL [facility] RDW CV 12.9 11.1 - 14.9 % [facility] RDW SD 43.4 35.7 - 48.1 fL [facility] NRBC abs 0.00 0.00 - 0.01 K/cumm [facility] Blood 07/18/2024 8:43 PM CDT 07/18/2024 8:45 PM CDT Yo Ferreira MD LAB BLOOD ORDERABLES Final R esult GO ROBERTCH [address] [facility] Department of [employer] [place], [place] [id number] * (ABNORMAL) Phosphorus (07/18/2024 8:43 PM CDT) Phosphorus, pl 1.9(L) 2.3 - 4.5 mg/dL Blood 07/18/2024 8:43 PM CDT 07/18/2024 8:45 PM CDT Yo Ferreira MD LAB BLOOD ORDERABLES Final R [facility] Performing Organization Address [facility] de Phone Number [facility] [address] [facility] [email or web address] [address] * Magnesium (07/18/2024 8:43 PM CDT) [facility] Magnesium 2.1 1.4 - 2.5 mg/dL Comment: Reference Data. Reference values for Labor and Delivery patients: < or = 0.7 mg/dL to > or = 7.3 mg/dL Current reference data last reviewd on 11/16/2014. Blood 07/18/2024 8:43 PM CDT 07/18/2024 8:45 PM CDT Yo Ferreira MD LAB BLOOD ORDERABLES Final [facility] Performing Organization Address [facility] de Phone Number [facility] [address] [facility] [email or web address] [address] * (ABNORMAL) Basic metabolic panel (07/18/2024 8:43 PM CDT) [facility] Sodium 139 135 - 145 mmol/L Potassium, pl 3.8 3.3 - 4.9 mmol/L [facility] Chloride 107 97 - 110 mmol/L [facility] CO2 23 22 - 32 mmol/L [facility] Anion gap 9 2 - 15 mmol/L [facility] BUN 14 6 - 25 mg/dL [facility] Creatinine 1.10 0.60 - 1.10 mg/dL [facility] Glucose 131 70 - 199 mg/dL [facility] Comment: Interpretive Data Fasting glucose [...] Calcium 8.1(L) 8.5 - 10.3 mg/dL GO SORTO Blood 07/18/2024 8:43 PM CDT 07/18/2024 8:45 PM CDT Yo Ferreira MD LAB BLOOD ORDERABLES Final R esult Performing Organization Address [facility] de Phone Number [facility] [address] [facility] [email or web address] [place], [place] [id number] * POCT glucose (07/18/2024 8:21 PM CDT) Glucose, POC 138 70 - 199 mg/dL Comment: Interpretive Data Glucose is assumed to be non-fasting. Fasting Glucose reference ranges are: 0 - 150 years: 70 mg/dL - 99 mg/dL Current interpretive data was last revised on 2013. POC Performer [id number] [facility] POC Device Number [id number] [facility] Blood 07/18/2024 8:21 PM CDT 07/18/2024 8:21 PM CDT Yo Ferreira MD LAB POCT ORDERABLES - DEVICE Final Result Performing Organization Address [facility] de Phone Number [facility] ROBERTCH [address] [facility] [place] [place] [address] * POCT glucose (07/18/2024 4:46 PM CDT) Glucose, POC 135 70 - 199 mg/dL Comment: Interpretive Data Glucose is assumed to be non-fasting. Fasting Glucose reference ranges are: 0 - 150 years: 70 mg/dL - 99 mg/dL Current interpretive data was last revised on 2013. POC Performer [id number] [facility] POC Device Number [id number] GO SORTO Blood 07/18/2024 4:46 PM CDT 07/18/2024 4:46 PM CDT Yo Ferreira MD LAB POCT ORDERABLES - DEVICE Final Result Performing Organization Address [facility] Phone Number GO BJWCH [address] [place] [address] * POCT glucose (07/18/2024 11:46 AM CDT) Glucose, POC 140 70 - 199 mg/dL Comment: Interpretive Data Glucose is assumed to be non-fasting. Fasting Glucose reference ranges are: 0 - 150 years: 70 mg/dL - 99 mg/dL Current interpretive data was last revised on 2013. POC Performer [id number] [facility] [employer] POC Device Number [id number] GO SORTO Blood 07/18/2024 11:4 6 AM CDT 07/18/2024 11:46 AM CDT Yo Ferreira MD LAB POCT ORDERABLES - DEVICE Final Result Performing Organization Address [facility] Phone Number GO ROBERTWCH [address] [place] [address] * POCT glucose (07/18/2024 8:43 AM CDT) Glucose, POC 136 70 - 199 mg/dL Comment: Interpretive Data Glucose is assumed to be non-fasting. Fasting Glucose reference ranges are: 0 - 150 years: 70 mg/dL - 99 mg/dL Current interpretive data was last revised on 2013. POC Performer [id number] [facility] [employer] POC Device Number [id number] GO JARAMILLO Blood 07/18/2024 8:43 AM CDT 07/18/2024 8:43 AM CDT Yo Ferreira MD LAB POCT ORDERABLES - DEVICE Final Result Performing Organization Address [facility] de Phone Number GO ROBERTCH [address] [place] [facility] [place] [address] * (ABNORMAL) eGFR (07/17/2024 9:15 PM CDT) Pathologist [facility] eGFR 41(L) >=60 mL/min/1. 73 m2 Comment: [...] Final R esult Performing Organization Address [facility] Co de Phone Number GO ROBERTWCH [address] [employer] Department [employer] [place], [place] [phone] * (ABNORMAL) CBC without differential (07/17/2024 9:15 PM CDT) WBC 7.25 3.80 - 9.90 K/cumm Hgb 7.9(L) 11.9 - 15.5 g/dL [facility] Hct 23.4(L) 35.6 - 45.5 % [facility] Plt 118(L) 150 - 400 K/cumm [facility] MPV 8.9(L) 9.1 - 12.3 fL [facility] RBC 2.54(L) 3.90 - 5.20 M/cumm [facility] MCV 92.1 81.3 - 96.4 fL [facility] MCH 31.1 27.1 - 33.3 pg [facility] MCHC 33.8 32.3 - 35.7 g/dL [facility] RDW CV 13.0 11.1 - 14.9 % [facility] RDW SD 43.5 35.7 - 48.1 fL [facility] NRBC abs 0.00 0.00 - 0.01 K/cumm [facility] Blood 07/17/2024 9:15 PM CDT 07/17/2024 9:17 PM CDT [facility]20 PM CDT Obtain POD 1 at 2200. us Yo Ferreira MD LAB BLOOD ORDERABLES Final R esult [facility] [address] [facility] Department of Laboratories [place], [place] [phone] * (ABNORMAL) Basic metabolic panel (07/17/2024 9:15 PM CDT) Sodium 136 135 - 145 mmol/L Potassium, pl 4.1 3.3 - 4.9 mmol/L [facility] Chloride 105 97 - 110 mmol/L [facility] CO2 22 22 - 32 mmol/L [facility] Anion gap 10 2 - 15 mmol/L [facility] BUN 21 6 - 25 mg/dL [facility] Creatinine 1.40(H) 0.60 - 1.10 mg/dL [facility] Glucose 182 70 - 199 mg/dL [facility] Comment: Interpretive Data Fasting glucose [...] Final R esult Performing Organization Address [facility] Co de Phone Number [facility] [address] [employer] [employer] [place] [address] * POCT glucose (07/17/2024 8:49 PM CDT) Glucose, POC 188 70 - 199 mg/dL Comment: Interpretive Data Glucose is assumed to be non-fasting. Fasting Glucose reference ranges are: 0 - 150 years: 70 mg/dL - 99 mg/dL Current interpretive data was last revised on 2013. POC Performer [id number] S[facility]IHAYASMINE [facility] POC Device Number [id number] GO SORTO Blood 07/17/2024 8:49 PM CDT 07/17/2024 8:49 PM CDT Yo Ferreira MD LAB POCT ORDERABLES - DEVICE Final Result Performing Organization Address [facility] Co de Phone Number [facility] [address] [facility] [email or web address] [address] * POCT glucose (07/17/2024 5:13 PM CDT) Glucose, POC 152 70 - 199 mg/dL Comment: Interpretive Data Glucose is assumed to be non-fasting. Fasting Glucose reference ranges are: 0 - 150 years: 70 mg/dL - 99 mg/dL Current interpretive data was last revised on 2013. POC Performer [id number] GO [email or web address] POC Device Number [id number] GO JARAMILLO Blood 07/17/2024 5:13 PM CDT 07/17/2024 5:13 PM CDT Yo Ferreira MD LAB POCT ORDERABLES - DEVICE Final Result Performing Organization Address [facility] de Phone Number GO ROBERTWCH [address] [facility] [email or web address] [address] * POCT glucose (07/17/2024 12:45 PM CDT) Glucose, POC 174 70 - 199 mg/dL Comment: Interpretive Data Glucose is assumed to be non-fasting. Fasting Glucose reference ranges are: 0 - 150 years: 70 mg/dL - 99 mg/dL Current interpretive data was last revised on 2013. POC Performer [id number] GO ROBERTIdle Gaming POC Device Number [id number] GO SORTO Blood 07/17/2024 12:4 5 PM CDT 07/17/2024 12:45 PM CDT Yo Ferreira MD LAB POCT ORDERABLES - DEVICE Final Result Performing Organization Address [facility] de Phone Number GO BJWCH [address] [facility] [email or web address] [address] * POCT glucose (07/17/2024 8:08 AM CDT) Glucose, POC 171 70 - 199 mg/dL Comment: Interpretive Data Glucose is assumed to be non-fasting. Fasting Glucose reference ranges are: 0 - 150 years: 70 mg/dL - 99 mg/dL Current interpretive data was last revised on 2013. POC Performer [id number] GO [employer] POC Device Number [id number] GO JARAMILLO Blood 07/17/2024 8:08 AM CDT 07/17/2024 8:08 AM CDT Yo Ferreira MD LAB POCT ORDERABLES - DEVICE Final Result Performing Organization Address [facility] de Phone Number GO SORTOCH [address] [facility] [email or web address] [place], [place] [id number] * POCT glucose (07/17/2024 1:55 AM CDT) Glucose, POC 189 70 - 199 mg/dL Comment: Interpretive Data Glucose is assumed to be non-fasting. Fasting Glucose reference ranges are: 0 - 150 years: 70 mg/dL - 99 mg/dL Current interpretive data was last revised on 2013. POC Performer [id number] [facility] POC Device Number [id number] [facility] Blood 07/17/2024 1:55 AM CDT 07/17/2024 1:55 AM CDT Yo Ferreira MD LAB POCT ORDERABLES - DEVICE Final Result Performing Organization Address [facility] de Phone Number GO ROBERTWCH [address] [facility] [email or web address] [address] * (ABNORMAL) eGFR (07/16/2024 10:07 PM CDT) Pathologist [facility] eGFR 41(L) >=60 mL/min/1. 73 m2 Comment: [...] Final R esult Performing Organization Address [facility] de Phone Number [facility]ITAL[facility] [address] [employer] [place] [address] [place], [place] [id number] * (ABNORMAL) Protime-INR (07/16/2024 10:07 PM CDT) [...] Final R esult Performing Organization Address [facility] de Phone Number GO [facility] [address] [employer]. [place] [address] [place], [place] [id number] * (ABNORMAL) CBC without differential (07/16/2024 10:07 PM CDT) WBC 13.73(H) 3.80 - 9.90 K/cumm Hgb 9.0(L) 11.9 - 15.5 g/dL GO JARAMILLO Hct 27.3(L) 35.6 - 45.5 % [facility] Plt 151 150 - 400 K/cumm [facility] MPV 9.4 9.1 - 12.3 fL [facility] RBC 2.86(L) 3.90 - 5.20 M/cumm [facility] MCV 95.5 81.3 - 96.4 fL [facility] MCH 31.5 27.1 - 33.3 pg [facility] MCHC 33.0 32.3 - 35.7 g/dL [facility] RDW CV 12.8 11.1 - 14.9 % [facility] RDW SD 44.4 35.7 - 48.1 fL [facility] NRBC abs 0.00 0.00 - 0.01 K/cumm [facility] Blood 07/16/2024 10:0 7 PM CDT 07/16/2024 10:26 PM CDT [facility] 10[facility]35 PM CDT Obtain POD 0 at 2000. us Yo Ferreira MD LAB BLOOD ORDERABLES Final R esult [facility] [address] [facility]. Department [place] [address] * (ABNORMAL) Basic metabolic panel (07/16/2024 10:07 PM CDT) Sodium 134(L) 135 - 145 mmol/L Potassium, pl 4.4 3.3 - 4.9 mmol/L [facility] Chloride 100 97 - 110 mmol/L [facility] CO2 19(L) 22 - 32 mmol/L [facility] Anion gap 16(H) 2 - 15 mmol/L [facility] BUN 28(H) 6 - 25 mg/dL [facility] Creatinine 1.40(H) 0.60 - 1.10 mg/dL [facility] Glucose 213(H) 70 - 199 mg/dL [facility] Comment: Interpretive Data Fasting glucose [...] Final R esult Performing Organization Address [facility] de Phone Number [facility]ITAL[facility] [address] [employer] [place] [address] * (ABNORMAL) POCT glucose (07/16/2024 9:22 PM CDT) [facility] Glucose, POC 230(H) 70 - 199 mg/dL Comment: Interpretive Data Glucose is assumed to be non-fasting. Fasting Glucose reference ranges are: 0 - 150 years: 70 mg/dL - 99 mg/dL Current interpretive data was last revised on 2013. POC Performer [id number] [facility] POC Device Number [id number] [facility] Blood 07/16/2024 9:22 PM CDT 07/16/2024 9:22 PM CDT Yo Ferreira MD LAB POCT ORDERABLES - DEVICE Final Result Performing Organization Address [facility] Co de Phone Number [facility] [address] [employer] [place] [address] * (ABNORMAL) eGFR (07/16/2024 1:37 PM CDT) Pathologist [facility] eGFR 50(L) >=60 mL/min/1. 73 m2 Comment: [...] LAB BLOOD ORDERABLES Final Resul t [facility] [address] [facility]. Department [place] [address] * (ABNORMAL) CBC without differential (07/16/2024 1:37 PM CDT) [facility] WBC 11.56(H) 3.80 - 9.90 K/cumm Hgb 10.4(L) 11.9 - 15.5 g/dL [facility] Hct 30.4(L) 35.6 - 45.5 % [facility] Plt 148(L) 150 - 400 K/cumm [facility] MPV 8.9(L) 9.1 - 12.3 fL [facility] RBC 3.33(L) 3.90 - 5.20 M/cumm [facility] MCV 91.3 81.3 - 96.4 fL CERNER BJWCH MCH 31.2 27.1 - 33.3 pg CERNER BJWCH MCHC 34.2 32.3 - 35.7 g/dL CERYASMINE ROBERTWCH RDW CV 12.4 11.1 - 14.9 % CERNER BJWCH RDW SD 41.3 35.7 - 48.1 fL [facility] ROBERTW NRBC abs 0.00 0.00 - 0.01 K/cumm [facility] Blood 07/16/2024 1:37 PM CDT 07/16/2024 1:41 PM CDT us Kylie Huerta NP LAB BLOOD ORDERABLES Final Resul t GO SORTO [address] [facility]. Department [place] [address] * (ABNORMAL) Basic metabolic panel (07/16/2024 1:37 PM CDT) Sodium 139 135 - 145 mmol/L Potassium, pl 3.9 3.3 - 4.9 mmol/L [facility] Chloride 104 97 - 110 mmol/L [facility] CO2 20(L) 22 - 32 mmol/L [facility] Anion gap 15 2 - 15 mmol/L [facility] BUN 26(H) 6 - 25 mg/dL [facility] Creatinine 1.20(H) 0.60 - 1.10 mg/dL [facility] Glucose 170 70 - 199 mg/dL [facility] Comment: Interpretive Data Fasting glucose [...] 2022. Calcium 8.2(L) 8.5 - 10.3 mg/dL [facility] Blood 07/16/2024 1:37 PM CDT 07/16/2024 1:41 PM CDT Kylie Huerta MANAGER INTERN LAB BLOOD ORDERABLES Final Resul t Performing Organization Address [facility] de Phone Number [facility] [address] [facility] [email or web address] [address] * POCT glucose (07/16/2024 10:53 AM CDT) Glucose, POC 132 70 - 199 mg/dL Comment: Interpretive Data Glucose is assumed to be non-fasting. Fasting Glucose reference ranges are: 0 - 150 years: 70 mg/dL - 99 mg/dL Current interpretive data was last revised on 2013. POC Performer [id number] [employer] POC Device Number [id number] GO JARAMILLO Blood 07/16/2024 10:5 3 AM CDT 07/16/2024 10:53 AM CDT us Yo Ferreira MD LAB POCT ORDERABLES - DEVICE Final Result Performing Organization Address [facility] de Phone Number GO ROBERTCH [address] [facility] [email or web address] [address] * POCT glucose (07/16/2024 10:27 AM CDT) Glucose, POC 129 70 - 199 mg/dL Comment: Interpretive Data Glucose is assumed to be non-fasting. Fasting Glucose reference ranges are: 0 - 150 years: 70 mg/dL - 99 mg/dL Current interpretive data was last revised on 2013. POC Performer [id number] [employer] POC Device Number [id number] GO JARAMILLO Blood 07/16/2024 10:2 7 AM CDT 07/16/2024 10:27 AM CDT us Yo Ferreira MD LAB POCT ORDERABLES - DEVICE Final Result Performing Organization Address City/State/[facility] Co de Phone Number GO BJCH [address] [facility]. Department [place] [address] * Surgical pathology (07/16/2024 9:28 AM CDT) Tissue (Rectum, Resection) 07/16/2024 9:28 AM CDT Tissue specimen (specimen) (Colon, Colostomy Stoma) 07/16/2024 10:19 AM CDT Narrative PATHOLOGY BJW - 07/26/2024 12:46 PM CDT EPIC results best viewed via link to PDF [facility] [place] [address] Note to Patients: This report may contain [...] Gender: F : 1960 (Age: 64) Address: [address] [place], [place] [id number] Hospital #: [id number] Taken:07/16/2024 Received:07/16/2024 Reported: 07/26/2024 Patient Type: [facility] EP INPAT Client BJW Service: Surgery Location: Physician(s): Monserrat Rubio M.D. Diagnosis: A. Rectum, resection - Rectal wall with cryptitis, erosion and prominent lymphoid aggregates; see comment - Negative for granuloma, dysplasia, and viral inclusions - Five benign lymph nodes B. Colostomy, stoma, takedown - Bowel wall with reactive epithelial changes and mild hemorrhage - No viable squamous mucosa identified (additional sections submitted) julissa/07/26/2024 12:46 By this signature, I attest that [...] as follows: A1-A2 Resection margins, shaved, A3 Conference Coordinator sections of rectal mucosa, A4 Lymph nodes, intact. Jar 1. B. Labeled colostomy stoma is a 4.8 cm in length by 2.3 cm in diameter segment of large intestine. At one end is a stoma composed of erythematous mucosa dupree-pink skin measuring 3.2 x 2.0 cm. The segment is opened to show unremarkable dupree-pink mucosal folds. Labeled B1. Jar 1. cnew/07/19/2024 10:48 PA(s): MARJ Casas By this signature, I attest that the above diagnosis is based upon my personal examination of the slides(and/or other material). Addenda/Procedures Microscopic slide review and interpretation for this case was performed at [facility], Department of Surgical Pathology, [address] [facility] [place] [place] [id number], [place] [address] CLIA # [id number] The performance characteristics of some immunohistochemical stains, fluorescence in-situ hybridization tests and immunophenotyping by flow cytometry cited in this report (if any) were determined by the Surgical Pathology and Flow Cytometry Departments at [facility] as part of an ongoing quality management [...] and Flow Cytometry Departments of [facility]. It has not been cleared or approved by the U. S. Food and Drug Administration. IMAGES AND SCANNED DOCUMENTS, IF INCLUDED, ONLY VIEWABLE IN PDF VERSION OF REPORT Yo Ferreira MD LAB PATHOLOGY ORDERABLES Fin al Result Performing Organization Address City/[facility]/ZIP Co de Phone Number PATHOLOGY [facility] [phone] * POCT glucose (07/16/2024 8:17 AM CDT) Glucose, POC 86 70 - 199 mg/dL Comment: Interpretive Data Glucose is assumed to be non-fasting. Fasting Glucose reference ranges are: 0 - 150 years: 70 mg/dL - 99 mg/dL Current interpretive data was last revised on 2013. POC Performer [id number] GO SORTO POC Device Number [id number] GO JARAMILLO Blood 07/16/2024 8:17 AM CDT 07/16/2024 8:17 AM CDT Yo Ferreira MD LAB POCT ORDERABLES - DEVICE Final Result [facility] [address] Department [place] [address] * TX AN ELECTIVE ENDOTRACHEAL AIRWAY, TX AN PROCEDURE PLACEHOLDER (07/16/2024 8:10 AM CDT) Narrative Taryn Krishna CRNA - 07/16/2024 8:10 AM CDT Taryn Kirshna CRNA 07/16/2024 8:11 AM Airway Patient location: OR Urgency: elective Indications for airway management: anesthesia Difficult airway: no Staff: Placed by: CALL CENTER COORDINATOR: Taryn Krishna CRNA Airway prep: Preoxygenated: yes [...] * Check Sample (07/16/2024 7:42 AM CDT) Pathologist [facility] ABO Rh O Positive GO ROBERTWSERVANDO HCLL OTHER 07/16/2024 7:42 AM CDT 07/16/2024 8:52 AM CDT Yo Ferreira MD LAB BLOOD ORDERABLES Final R esult Performing Organization Address [facility] de Phone Number [facility] [address] [facility] [email or web address] [place], [place] [address] * Type and screen (07/16/2024 7:18 AM CDT) Maira, indirect Negative GO ROBERTWCH ABO Rh O Positive GO JARAMILLO Blood 07/16/2024 7:18 AM CDT 07/16/2024 7:41 AM CDT Narrative GO JARAMILLO - 07/16/2024 8:51 AM CDT Has the patient had Daratumumab or Isatuximab in the past 6 months?->Unknown Bong De Santiago DO LAB BLOOD BANK TEST ORDER INO Final Result Performing Organization Address [facility] Phone Number [facility] [address] [facility] [email or web address] [address] * POCT glucose (07/16/2024 6:08 AM CDT) Glucose, POC 85 70 - 199 mg/dL Comment: Interpretive Data Glucose is assumed to be non-fasting. Fasting Glucose reference ranges are: 0 - 150 years: 70 mg/dL - 99 mg/dL Current interpretive data was last revised on 2013. POC Performer [id number] GO JARAMILLO POC Device Number [id number] GO JARAMILLO Blood 07/16/2024 6:08 AM CDT 07/16/2024 6:08 AM CDT Yo Ferreira MD LAB POCT ORDERABLES - DEVICE Final Result Performing Organization Address [facility] de Phone Number CERNER BJWCH [address] Department [place] [address] * Colonoscopy (07/15/2024 10:39 AM CDT) Anatomical Region Laterality Modality Other Narrative Procedure Note Yo Ferreira MD - 07/15/2024 10:39 AM CDT [facility] Patient Name: Farhana Willhoit Procedure Date: 07/15/2024 10:39 AM Date of : 1960 Admit Type: Outpatient Age: 64 Gender: Female Attending MD: Yo Ferreira M.D. Room: [facility] ENDOSCOPY ROOM 02 Note Status: Finalized Procedure: [...] The scope was passed under direct vision.The [id number] Endoscsope was introduced through the descending colostomy and advanced to the the cecum, identified by appendiceal orifice andileocecal valve. The colonoscopy was performed with ease. The patient tolerated the procedure well. The qualityof the bowel preparation was excellent. The quality of the bowel preparation was evaluated using the BBPS ([place] Bowel Preparation Scale) with scores of:Right Colon [...] On: 07/15/2024 10:39 AM Recognized by the [employer] for promoting quality [...] POCT ORDERABLES - DEVICE Final Result GO [facility] Department [place] [address] * (ABNORMAL) eGFR (07/02/2024 1:20 PM CDT) [...] MD LAB BLOOD ORDERABLES Final R esult [facility] Department [place] [address] * (ABNORMAL) Urinalysis reflex to microscopic (07/02/2024 1:20 PM CDT) Color, ur Yellow Yellow Clarity, ur Clear Clear [facility] Specific gravity, ur 1.021 1.003 - 1.030 [facility] pH, urine 6.0 [facility] Comment: Interpretive Data U rine pH is affected by diet, medications, systemic acid-base disturbances, and renal tubular function. pH may affect urinary stone formation. For example, urine pH below 6.0 may help reduce the tendency for calcium phosphate stones and pH greater than 6.0 may reduce the tendency for uric acid stone formation. Source: [facility] Current Interpretive Data was last revised on 2017 Protein, ur ql 1+(A) Negative [facility] Glucose, ur ql Negative Negative [facility] Ketones, ur Negative Negative [facility] Bilirubin, ur Negative Negative [facility] Blood, ur 2+(A) Negative [facility] Urobilinogen, ur <2.0 <2.0 mg/dL [facility] Nitrite, ur Negative Negative [facility] Leukocyte esterase, ur 2+(A) Negative [facility]ER [facility] UA reflex comment Reflex to microscopic UA will be performed. [facility] Urine 07/02/2024 1:20 PM CDT 07/02/2024 2:26 PM CDT Bong De Santiago LAB URINE ORDERABLES Samantha l Result Performing Organization Address [facility] de Phone Number [facility] Department [email or web address] [address] * (ABNORMAL) Urinalysis, microscopic only (07/02/2024 1:20 PM CDT) WBC, ur 11-20(A) 0 - 5 /HPF RBC, ur 21-50(A) 0 - 2 /HPF [facility] Epithelial cells, squamous, ur 1-5 0 - 5 /HPF [facility] Mucous, ur Present(A) [facility] Urine 07/02/2024 1:20 PM CDT 07/02/2024 2:26 PM CDT [employer] LAB URINE ORDERABLES Samantha l Result Performing Organization Address [facility] de Phone Number [facility] [address] * (ABNORMAL) CBC without differential (07/02/2024 1:20 PM CDT) WBC 4.52 3.80 - 9.90 K/cumm Hgb 11.2(L) 11.9 - 15.5 g/dL [facility] Hct 32.5(L) 35.6 - 45.5 % [facility] Plt 155 150 - 400 K/cumm [facility] MPV 9.5 9.1 - 12.3 fL [facility] RBC 3.64(L) 3.90 - 5.20 M/cumm [facility] MCV 89.3 81.3 - 96.4 fL [facility] MCH 30.8 27.1 - 33.3 pg [facility] MCHC 34.5 32.3 - 35.7 g/dL [facility] RDW CV 12.6 11.1 - 14.9 % [facility] RDW SD 41.2 35.7 - 48.1 fL [facility] NRBC abs 0.00 0.00 - 0.01 K/cumm [facility] Blood 07/02/2024 1:20 PM CDT 07/02/2024 2:30 PM CDT us Bong De Santiago DO LAB BLOOD ORDERABLES Samantha lott Result [facility] Department [place] [address] * (ABNORMAL) Basic metabolic panel (07/02/2024 1:20 PM CDT) Sodium 138 135 - 145 mmol/L Potassium, pl 4.1 3.3 - 4.9 mmol/L [facility] Chloride 103 97 - 110 mmol/L [facility] CO2 28 22 - 32 mmol/L [facility] Anion gap 7 2 - 15 mmol/L [facility] BUN 30(H) 6 - 25 mg/dL [facility] Creatinine 1.42(H) 0.60 - 1.10 mg/dL [facility] Glucose 105 70 - 199 mg/dL [facility] Comment: Interpretive Data Fasting glucose [...] Calcium 9.1 8.5 - 10.3 mg/dL [facility] Blood 07/02/2024 1:20 PM CDT 07/02/2024 2:49 PM CDT Narrative GO ROBERT - 07/02/2024 3:18 PM CDT This order is is required for all post operative patients receiving lovenox. us Yo Ferreira MD LAB BLOOD ORDERABLES Final R esult [facility] Department [place] [address] * (ABNORMAL) Lipid panel (12/04/2023 5:24 PM [...] on 2017. Triglycerides 75 <=149 mg/dL [facility] Comment: Interpretive Data Ages < [...] on 2017. HDL 27(L) >=40 mg/dL [facility] Comment: Interpretive Data Ages < [...] 2017. LDL, calculated 28 <=129 mg/dL [facility] Comment: Interpretive Data Ages < [...] on 2023. Non-HDL Cholesterol 44 mg/dL [facility] Comment: Interpretive Data Ages < [...] revised on 2017. Chol/HDL ratio 3 [facility] Blood 12/04/2023 5:24 PM CDT 12/04/2023 5:34 PM CDT Narrative [facility] - 12/04/2023 7:03 PM CDT This lipid panel was automatically ordered due to a significant change in Troponin. The dietary status of the patient at the collection time should be correlated with the lipid results. us Álvaro Radford MD LAB BLOOD ORDERABLES Final Result Performing Organization Address [facility] de Phone Number [facility] [email or web address] [address] * (ABNORMAL) Hemoglobin A1c (11/04/2023 7:56 AM CDT) Hgb A1C 5.7(H) 4.0 - 5.6 % Estimated Average Glucose 117 mg/dL [facility] Comment: The ADA recommends reporting [...] Result Performing Organization Address [facility] Co de Phone Number [facility] Department [email or web address] [address] * Hepatitis C antibody Blood (10/27/2023 9:30 [...] last revised on 2019. Testing performed by: [facility], [address] [place] [address]., [id number] Blood 10/27/2023 9:30 AM CDT 10/27/2023 12:43 PM CDT Gildardo Jung MD LAB MICROBIOLOGY - GENERAL OR DERABLES Edited Result - Final Performing Organization Address City/State/ZIP Co ne Phone Number [facility] [address] [facility]. Department [email or web address] [address] from Last 3 Months or Most Recently Relevant to Health Maintenance [place] [address] MEDICARE [facility] MEDICARE [facility] [facility] Advance Directives For more information, please contact: [phone] * Full Code (Latest Code Status on [...] 5:00 PM 11/06/2023 7:28 PM Care Teams Cna Gna Relationship Specialty Start Date End Date Kaushal Heath MD [address] [place] [address] PCP - General Internal Medicine 10/30/23 Bigg Delarosa MD [address] [address] Referring Physician Gastroenterology 10/15/23 Jefe Choe MD [address] [facility] [address] [place] [address] [place] [address] Referring Physician Gastroenterology 10/15/23 Melissa Rhodes MD [address] [facility] GYNECOLOGIC ONCOLOGY, [address] [address] Consulting Physician Gynecologic Oncology 10/30/23
--- OUTSIDE RECORDS SUMMARY | 2024-09-25 07:49 | XMS_ITS ---
Author Organization [facility] Address [address] [place] [address] Care Team Providers Care Piece Dye Worker Name Role Phone Bigg Delarosa MD Unavailable [phone] Jefe Choe MD Unavailable + Melissa Rhodes MD Unavailable [phone] Kaushal Heath MD Primary Care Provider [phone] Active Problems Problem Noted Date Diagnosed Date Ileostomy present 07/19/2024 Pyelonephritis 07/19/2024 Ureteral stent present 07/19/2024 Staghorn calculus 07/16/2024 Diverticulitis 05/10/2024 Fever 12/09/2023 Ulcerative pancolitis with complication 12/05/19 Assessment & Plan (12/26/2023 11:47 AM TECHNICAL SPECIALIST): Patient is a 63 y.o. female with a history of hypertension, type 2 diabetes, and inflammatory bowel disease who is admitted from [facility] for progressive weight loss and nausea in the setting of multiple admissions for diverticulitis complicated by contained sigmoid perforation, scattered liver and spleen abscesses and adnexal mass. She was admitted to [facility] on 11/24 for further workup [...] Patient went to the OR 12/23 with INSPECTING ENGINEER, CRS and urology for ex lap, left colectomy with end colostomy, LIBRA, BSO and ureteral stent placement. Surgery reporting source control archived. Given source control has been achieved, we are planning on 5 days of antibiotics from surgery. On assessment today, patient reports minimal use of her ASS[employer]IATE [employer]ACLE [employer]AIL and that she typically has abdominal discomfort [...] Assessment & Plan (12/25/2023 12:55 PM TECHNICAL SPECIALIST): Near resolution of hepatic and splenic abscesses. No plans for repeat imaging given improvement. Continue antibiotics as described elsewhere. Pulmonary nodule 11/26/2023 Assessment & Plan (12/26/2023 11:38 AM TECHNICAL SPECIALIST): Patient is a 63 y.o. female with a history of hypertension, type 2 diabetes, and inflammatory bowel disease who is admitted from Gastroenterology Clinic for progressive weight loss and nausea in the setting of multiple admissions for diverticulitis complicated by contained sigmoid perforation, scattered liver and spleen abscesses and adnexal mass. She was admitted to [facility] on 11/24 for further workup and ID was consulted on 11/25 for antibiotic recommendations. Please see consult note regarding details leading up to current admission. Results: T spot 10/26: negative EBV 10/26: positive ab and IgG Blood cultures 11/03: NG CT C/A/P 11/25: FRANKLNI peribronchovascular nodules, some of which are cavitating [...] Assessment & Plan (12/25/2023 12:55 PM TECHNICAL SPECIALIST): Near resolution of hepatic and splenic [...]
--- OUTSIDE RECORDS SUMMARY | 2024-09-25 07:49 | XMS_ITS | Patient Health Record ---
Author Organization [facility] Address [address] [place], [place] [id number] Care Team Providers Care Veneer Taping Machine Operator Name Role Phone JENNYFER KELLY Unavailable [phone] Kylie Ghosh Unavailable Unavailable Reason For Referral No Information Plan Of Treatment No Information Insurance Providers Payer Name Payer Address Payer Phone Subscriber Number Group Number Insured Name Patient Relationship to Insured Coverage Start Date Coverage End Date SRINIVASR Ludmila / ANURADHA [address] [id number] DARIUS GARCIAS Self - patient is the insured
[2024-09-25 08:14] LABS: Hematocrit 30.2 % (35.0-42.0); Hemoglobin 10.1 g/dL (11.7-13.8); Mean Corpuscular HGB Conc 33.4 g/dL (32-36); Mean Corpuscular Hemoglobin 30.0 pg (27.0-31.0); Mean Corpuscular Volume 89.6 fL (78.0-102.0); Platelet Count Result 164 K/mm3 (150-420); Red Blood Count 3.37 M/mm3 (4.20-5.40); White Blood Count 3.6 K/mm3 (4.8-10.8)
[2024-09-25 08:24] LABS: Add Urine Microscopic? YES; Appearance Urine Clear (Clear); Glucose Urine UA Negative (Negative); Leukocyte Esterase Ur 1+ LEU/UL (Negative); Nitrate Urine Negative (Negative); Specific Grav Ur <= 1.005 (1.010-1.020)
[2024-09-25 08:42] LABS: Alanine Aminotransferase 20 U/L (6-35); Albumin Level 4.5 g/dL (3.5-5.1); Alkaline Phosphatase 89 U/L (38-126); Anion Gap 6 mmol/L (4-12); Aspartate Amino Transferase 35 U/L (14-36); Bilirubin,Total 0.6 mg/dL (0.2-1.3); Blood Urea Nitrogen 41 mg/dL (7-17); CRP 0.8 mg/dL (<1.0); Calcium 9.9 mg/dL (8.4-10.2); Carbon Dioxide 25 mmol/L (22-30); Chloride 106 mmol/L (98-107); Estimated Glomerular Filt Rate 27; Glucose 113 mg/dL (65-110); Iron 56 ug/dL (37-170); Osmolality Calculated 295 mOsm/kg (285-295); Potassium 4.7 mmol/L (3.4-5.0); Sodium 137 mmol/L (137-145); Total Protein 8.1 g/dL (6.3-8.2)
[2024-09-25 08:45] LABS: Free T3 3.35 pg/mL (2.18-3.98); Free T4 Free Thyroxine 1.27 ng/dL (0.78-2.19)
[2024-09-25 08:58] LABS: Thyroid Stimulating Hormone 1.340 uIU/mL (0.465-4.680)
[2024-09-25 09:02] LABS: Ferritin 258.00 ng/mL (11.1-264)
[2024-09-27 14:43] LABS: Hemoglobin A1C 5.4 % (<5.7)
[2024-09-28 07:08] LABS: Calprotectin, Fecal 81 ug/g (0-120)
== END 2024-09-25 07:46 | disposition home or self-care (01) ==
PROVIDERS: PCP Internal Medicine; Visit Provider Internal Medicine
DX: K50.819 Crohn's disease of both small and large intestine with unspecified complications (principal); D64.9 Anemia, unspecified; R31.29 Other microscopic hematuria; E55.9 Vitamin D deficiency, unspecified; E11.9 Type 2 diabetes mellitus without complications; N39.0 Urinary tract infection, site not specified
CPT/HCPCS: 36415; 80053; 81001; 82306; 82728; 83036; 83540; 83993; 84439; 84443; 84481; 85027; 85652; 86140; 87086; 87186

== ENCOUNTER 2024-10-23 07:58 | Outpatient (CLI) | payer MEDICARE, SELFPAY ==
--- OUTSIDE RECORDS SUMMARY | 2024-10-23 08:04 | XMS_ITS | Encounter Summary ---
Author Organization [facility] Address [address] [place] [address] Phone Care Team Providers Care Automobile Brakes Bonder Name Role Phone Bigg Delarosa MD Unavailable [phone] Jefe Choe MD Unavailable + Kaushal Heath MD Primary Care Provider [phone] Reason for Referral * Diagnostic Imaging (Routine) - Authorized Specialty Diagnoses / Procedures Referred By Contkyle t Referred To Contact Diagnoses Ileostomy present (HCC) Procedures FL Water Soluble Enema Yo Ferreira MD [address] [facility] [id number] [place] [address] Phone: tel: fax: [address] [address] Referral ID Status Reason Start Date Expiration Date V isits Requested Visits Authorized [id number] Authorized 10/22/2024 11/21/2025 1 1 Encounter Details Date Type Department Care Team (Late st Contact Info) Description 10/22/2024 Orders Only [facility] Medicine Surgery [address] [facility] [address] [place] [address] Yo Ferreira MD [address] [facility] [phone] [place] [address] Ileostomy present (HCC) (Primary Dx) Social History Tobacco Use Types Packs/Day Years Used Date Smoking Tobacco: Never Passive Smoke Exposure: Never Smokeless Tobacco: Never Alcohol Use Standard Drinks/Week Comments Never 0 (1 standard drink = 0.6 oz pur e alcohol) [facility] Utilities Answer Date Recorded In the past 12 months has e [employer], gas, oil, or water [employer] threatened to shut off services in your home? No 07/19/2024 Social Connection and Isolation Panel Answer Date Recorded In a typical week, [...] any clubs o r organizations such as mu-ism groups, unions, fraternal or athletic groups, or school groups? No 07/19/2024 How often do you attend meet ings of the clubs or organizations you belong to? Never 07/19/2024 Are you , , di vorced, , never , or living with a partner? 07/19/2024 Overall Financial Resource Strain (CARDIA) Answe r [...] any time in the past 12 m onths, were you homeless or living in a prison (including now)? No 07/19/2024 AUDIT-C Answer Date Recorded Q1: How often do you have a drink containing alcohol? Never 10/13/2024 Q2: How many drinks containi ng alcohol do you have on a typical day when you are drinking? Patient does not drink Q3: How often do you have si x or more drinks on one occasion? Never 10/13/2024 Personal Safety Answer Date Recorded Have you ever been in or are you currently in a harmful physical or emotional relationship or is someone making you feel afraid or unsafe? Denies 10/15/2024 Comments No Sex and Gender Information Value Date Recorded Sex Assigned at Not on file Legal Sex Female 3:11 PM CDT Gender Identity Not on file Sexual Orientation Not on file documented as of this encounter Plan of Treatment Upcoming Encounters Date Type Department Care Team (Latest Contact Info) Description 11/26/2024 12:30 PM CDT Hospital Encounter [facility] Operating Room [address] [place] [address] Yo Ferreira MD [address] [facility] [phone] [place] [address] 11/26/2024 12:30 PM CDT - 11/26/2024 3:00 PM CDT Surgery [facility] Operating Room [address] [place] [address] Yo Ferreira MD [address] [facility] [phone] [place] [address] CLOSURE ILEOSTOMY Scheduled Orders Name Type Priority Associated Diagnoses Orde r Schedule FL Water Soluble Enema Imaging Schedule Routine, Read Routine (OP Routine) Ileostomy present (HCC) Expected: 11/12/2024, Expires: 10/22/2025 Scheduled Procedures Name Priority Associated Diagnoses Date/Ti me CLOSURE ILEOSTOMY Ileostomy present (HCC) 11/26/2024 12:30 PM CDT documented as of this encounter Goals Goal Patient Goal Type Associated Problems Recent Progress Patient-Stated? Author Autogenera елена Goal Care Plan Autogenerated Problem No Lizbet Woodard RN documented as of this encounter Visit Diagnoses Diagnosis Ileostomy present (HCC)- Primary Ileostomy present (HCC) documented in this encounter Additional Health Concerns Active Problems Noted Date Diagnosed Date Autogenerated Problem 10/22/2024 documented as of this encounter Care Teams Automobile Brakes Bonder Relationship Specialty Start Date End Date Kaushal Heath MD [address] [place] [address] PCP - General Internal Medicine 10/30/23 Bigg Delarosa MD [address] [address] Referring Physician Gastroenterology 10/15/23 Jefe Choe MD [address] [facility] [address] [place] [address] Referring Physician Gastroenterology 10/15/23 documented as of this encounter
--- OUTSIDE RECORDS SUMMARY | 2024-10-23 08:04 | XMS_ITS ---
Author Organization [facility] Address [address] [place] [address] Care Team Providers Care Sales Audit Clerk Name Role Phone Bigg Delarosa MD Unavailable [phone] Jefe Choe MD Unavailable + Kaushal Heath MD Primary Care Provider [phone] Active Problems Problem Noted Date Diagnosed Date Ileostomy present 07/19/2024 Pyelonephritis 07/19/2024 Ureteral stent present 07/19/2024 Staghorn calculus 07/16/2024 Diverticulitis 05/10/2024 Fever 12/09/2023 Ulcerative pancolitis with complication 12/05/19 Assessment & Plan (12/26/2023 11:47 AM QUALITY FACILITATOR): Patient is a 63 y.o. female with a history of hypertension, type 2 diabetes, and inflammatory bowel disease who is admitted from Gastroenterology Clinic for progressive weight loss and nausea in the setting of multiple admissions for diverticulitis complicated by contained sigmoid perforation, scattered liver and spleen abscesses and adnexal mass. She was admitted to [facility] on 11/24 for further workup and ID [...] Patient went to the OR 12/23 with WEBSPHERE PORTAL ARCHITECT, CRS and urology for ex lap, left colectomy with end colostomy, LIBRA, BSO and ureteral stent placement. Surgery reporting source control archived. Given source control has been achieved, we are planning on 5 days of antibiotics from surgery. On assessment today, patient reports minimal use of her COTTON FEEDER and that she typically has abdominal discomfort [...] 11/26/2023 Assessment & Plan (12/25/2023 12:55 PM QUALITY FACILITATOR): Near resolution of hepatic and splenic abscesses. No plans for repeat imaging given improvement. Continue antibiotics as described elsewhere. Pulmonary nodule 11/26/2023 Assessment & Plan (12/26/2023 11:38 AM QUALITY FACILITATOR): Patient is a 63 y.o. female with a history of hypertension, type 2 diabetes, and inflammatory bowel disease who is admitted from Gastroenterology Clinic for progressive weight loss and nausea in the setting of multiple admissions for diverticulitis complicated by contained sigmoid perforation, scattered liver and spleen abscesses and adnexal mass. She was admitted to [facility] on 11/24 for further workup and ID [...] 11/26/2023 Assessment & Plan (12/25/2023 12:55 PM QUALITY FACILITATOR): Near resolution of hepatic and splenic abscesses. [...] Automatic Entry Manual Entr y Fluoro Time 0.162 minutes 0.162 minutes 0 minutes Air kerma at the reference point (Ka,r) 6.284 mGy 6 .284 mGy 0 mGy DLP 5,845 mGycm 5,845 mGycm 0 mGycm Resolved Problems Problem Noted Date Diagnosed Date Resolved Date Colostomy in place 01/13/2024 Moderate protein-calorie malnutrition 10/03/2023 11/25/2023 Abdominal pain 10/02/2023 10/20/2023
--- OUTSIDE RECORDS SUMMARY | 2024-10-23 08:04 | XMS_ITS | Encounter Summary ---
Author Organization [facility] [place] Address [address] [place] [address] Phone Care Team Providers Care Management Nurse Rn Name Role Phone Bigg Delarosa MD Unavailable [phone] Jefe Choe MD Unavailable + Kaushal Heath MD Primary Care Provider [phone] Encounter Details Date Type Department Care Team (Late st Contact Info) Description 10/12/2024 Results Follow-Up [place] [facility] ([facility]) [facility] Medicine Urology [facility], [facility] Advanced Medicine 11th Floor [address] [phone] Colby Curtis MD [address] [facility] 8242 [address] [employer] 24Hr Urine Panel Social History Tobacco Use Types Packs/Day Years Used Date Smoking Tobacco: Never Passive Smoke Exposure: Never Smokeless Tobacco: Never [facility] Utilities Answer Date Recorded In the past 12 months has [employer] electric, gas, oil, or water company threatened [...] often do you attend chur ch or yarsanism services? 1 to 4 times per year [...] any time in the past 12 m [facility], were you homeless or living in [...] on file documented as of this encounter Functional Status * AUDIT-C Score Answer Date of Assessment Author 0 10/13/2024 8:38 AM CDT Zane Linda RN * Question Answer Date of Assessment Author Q1: How often do you have a drink containing alcohol? Never 10/13/2024 8:38 AM JUSTINET Estela Linda RN Q2: How many drinks containing alcohol do you have on a typical day when you are drinking? Patient does not drink 10/13/2024 8:38 AM Estela Salgado RN Q3: How often do you have six or more drinks on one occasion? Never 10/13/2024 8:38 AM Estela Salgado RN documented as of this encounter Plan of Treatment Upcoming Encounters Date Type Department Care Team (Latest Contact Info) Description 11/26/2024 12:30 PM CDT Hospital Encounter [facility] Operating Room [address] [address] Yo Ferreira MD [address] [facility] [phone] [id number] 11/26/2024 12:30 PM CDT - 11/26/2024 3:00 PM CDT Surgery [facility] Operating Room [address] [address] [address] Yo Ferreira MD [address] [facility] [phone] [address] CLOSURE ILEOSTOMY Scheduled Procedures Name Priority Associated Diagnoses Date/Ti me CLOSURE ILEOSTOMY Ileostomy present (HCC) 11/26/2024 12:30 PM CDT documented as of this encounter Visit Diagnoses Not on filedocumented in this encounter Care Teams Management Nurse Rn Relationship Specialty Start Date End Date Kaushal Heath MD [address] [place] [address] PCP - General Internal Medicine 10/30/23 Bigg Delarosa MD [address] [facility] [address] [place] [address] Referring Physician Gastroenterology 10/15/23 Jefe Choe MD [address] [facility] [address] [place] [address] Referring Physician Gastroenterology 10/15/23 documented as of this encounter
--- OUTSIDE RECORDS SUMMARY | 2024-10-23 08:04 | XMS_ITS | Encounter Summary ---
Author Organization [facility] Address [address] [place] [address] Phone Care Team Providers Care Farm Machinery Set Up Mechanic Name Role Phone Bigg Delarosa MD Unavailable [phone] Jefe Choe MD Unavailable + Kaushal Heath MD Primary Care Provider [phone] Encounter Details Date Type Department Care Team (Late st Contact Info) Description 10/22/2024 Orders Only [facility] Surgery [address] [facility] [address] [place] [address] Colby Curtis MD [address] [facility] [address] [place], [place] [id number] Kidney stone (Primary Dx) Social History Tobacco Use Types Packs/Day Years Used Date Smoking Tobacco: Never Passive Smoke Exposure: Never Smokeless Tobacco: Never Alcohol Use Standard Drinks/Week Comments Never 0 (1 standard drink = 0.6 oz pur e alcohol) [facility] Utilities Answer Date Recorded In the past 12 months has [email or web address], gas, oil, or water company threatened [...] often do you attend chur ch or pentecostalism services? 1 to 4 times per year [...] any time in the past 12 m [facility], were you homeless or living in a alf (including now)? No 07/19/2024 AUDIT-C Answer Date [...] Description 11/26/2024 12:30 PM CDT Hospital Encounter [facility] Operating Room [address] [place] [address] Yo Ferreira MD [address] [facility] [phone] [place] [address] 11/26/2024 12:30 PM CDT - 11/26/2024 3:00 PM CDT Surgery [facility] Operating Room [address] [place] [address] Yo Ferreira MD [address] [facility] [phone] [place] [address] CLOSURE ILEOSTOMY Scheduled Orders Name Type Priority Associated Diagnoses Orde r Schedule Urine culture Urine, clean voided Microbiology Routine Kidney stone Expected: 10/25/2024, Expires: 10/22/2025 Scheduled Procedures Name Priority Associated Diagnoses Date/Ti me CLOSURE ILEOSTOMY Ileostomy present (HCC) 11/26/2024 12:30 PM CDT documented as of this encounter Goals Goal Patient Goal Type Associated Problems Recent Progress Patient-Stated? Author Autogenera елена Goal Care Plan Autogenerated Problem No iLzbet Woodard RN documented as of this encounter Visit Diagnoses Diagnosis Ileostomy present (HCC)- Primary Kidney stone- Primary Calculus of kidney Ileostomy present (HCC) documented in this encounter Additional Health Concerns Active Problems Noted Date Diagnosed Date Autogenerated Problem 10/22/2024 documented as of this encounter Care Teams Farm Machinery Set Up Mechanic Relationship Specialty Start Date End Date Kaushal Heath MD [address] [place] [address] PCP - General Internal Medicine 10/30/23 Bigg Delarosa MD [address] [facility] [address] [place] [address] Referring Physician Gastroenterology 10/15/23 Jefe Choe MD [address] [facility] 204 [place] [address] Referring Physician Gastroenterology 10/15/23 documented as of this encounter
--- OUTSIDE RECORDS SUMMARY | 2024-10-23 08:04 | XMS_ITS | Encounter Summary ---
Author Organization [facility] Address [address] [place] [address] Phone Care Team Providers Care Waiter/Waitress Buffet Name Role Phone Bigg Delarosa MD Unavailable [phone] Jefe Choe MD Unavailable + Kaushal Heath MD Primary Care Provider [phone] Encounter Details Date Type Department Care Team (Late st Contact Info) Description 10/22/2024 Telephone [place] [facility] ([facility] - [facility] Medicine Urology [address] [place] [address] Advanced Medicine 11th [place] [address] [place] [address] [facility] Social History Tobacco Use Types Packs/Day Years Used Date Smoking Tobacco: Never Passive Smoke Exposure: Never Smokeless Tobacco: Never Alcohol Use Standard Drinks/Week Comments Never 0 (1 standard drink = 0.6 oz pur e alcohol) [facility] Utilities Answer Date Recorded In the past 12 months has [email or web address], gas, oil, or water [place] threatened to shut off services in your [...] week 07/19/2024 How often do you attend [facility] or rastafari services? 1 to 4 times per year 07/19/2024 Do you belong to any clubs o r organizations such as scientology groups, unions, fraternal or athletic groups, or [...] time in the past 12 m [facility], were you homeless or living in a halfway (including now)? No 07/19/2024 AUDIT-C Answer Date [...] encounter Miscellaneous Notes * Telephone Encounter - AdYumiko - 10/22/2024 8:50 AM CDT Date: 10/22/2024 Reason for Call:patient called needing to schedule post op. Patient also stating she having frequently urinate and pain under lower stomach. Patient requesting a call back Patient Provider:[facility] Medical/Surgical Information: Outcome/Plan: documented in this encounter Plan of Treatment Upcoming Encounters Date Type Department Care Team (Latest Contact Info) Description 11/26/2024 12:30 PM CDT Hospital Encounter [facility] Operating Room [address] [place] [address] Yo Ferreira MD [address] [facility] [phone] [place], [place] [id number] 11/26/2024 12:30 PM CDT - 11/26/2024 3:00 PM CDT Surgery [facility] Operating Room [address] [place] [address] Yo Ferreira MD [address] [facility] [phone] [place] [address] CLOSURE ILEOSTOMY Scheduled Procedures Name Priority Associated Diagnoses Date/Ti me CLOSURE ILEOSTOMY Ileostomy present ([facility]) 11/26/2024 12:30 PM CDT documented as of this encounter Goals Goal Patient Goal Type Associated Problems Recent Progress Patient-Stated? Author Autogenera елена Goal Care Plan Autogenerated Problem No Lizbet Woodard RN documented as of this encounter Visit Diagnoses Not on filedocumented in this encounter Additional Health Concerns Active Problems Noted Date Diagnosed Date Autogenerated Problem 10/22/2024 documented as of this encounter Care Teams Waiter/Waitress Buffet Relationship Specialty Start Date End Date Kaushal Heath MD [address] [place] [address] PCP - General Internal Medicine 10/30/23 Bigg Delarosa MD [address] [facility] [address] [facility] [address] [place] [address] Referring Physician Gastroenterology 10/15/23 Jefe Choe MD [address] [facility] [address] [facility] 204 [place] [address] Referring Physician Gastroenterology 10/15/23 documented as of this encounter
--- OUTSIDE RECORDS SUMMARY | 2024-10-23 08:04 | XMS_ITS | Encounter Summary ---
Author Organization [facility] Address [address] [place] [address] Phone Care Team Providers Care Director Of Veterans Affairs Name Role Phone Bigg Delarosa MD Unavailable [phone] Jefe Choe MD Unavailable + Kaushal Heath MD Primary Care Provider [phone] Encounter Details Date Type Department Care Team (Late st Contact Info) Description 10/22/[address] [facility] Medicine Physicians [facility] Surgery [address] [place] [address] Kary Ribeiro Social History Tobacco Use Types Packs/Day Years Used Date Smoking Tobacco: Never Passive Smoke Exposure: Never Smokeless Tobacco: Never Alcohol Use Standard Drinks/Week Comments Never 0 (1 standard drink = 0.6 oz pur e alcohol) [facility] Utilities Answer Date Recorded In the past 12 months has [employer], gas, oil, or water [employer] threatened to shut off services in your [...] week 07/19/2024 How often do you attend [facility] or baptism services? 1 to 4 times per year 07/19/2024 Do you belong to any clubs o r organizations such as samaritan groups, unions, fraternal or athletic groups, or [...] were you homeless or living in a detention (including now)? No 07/19/2024 AUDIT-C Answer Date [...] Miscellaneous Notes * Telephone Encounter - Kary Ribeiro - 10/22/2024 11:27 AM CDT Spoke with patient regarding UTI symptoms. Ordered culture and sent to [facility]. Hosp. documented in this encounter Plan of Treatment Upcoming Encounters Date Type Department Care Team (Latest Contact Info) Description 11/26/2024 12:30 PM CDT Hospital Encounter [facility] Operating Room [address] [place] [address] Yo Ferreira MD [address] [facility] [place] [phone] [place] [address] 11/26/2024 12:30 PM CDT - 11/26/2024 3:00 PM CDT Surgery [facility] Operating Room [address] [place] [address] Yo Ferreira MD [address] [facility] [place] [phone] [place] [address] CLOSURE ILEOSTOMY Scheduled Procedures Name Priority Associated Diagnoses Date/Ti me CLOSURE ILEOSTOMY Ileostomy present ([facility]) 11/26/2024 12:30 PM CDT documented as of this encounter Goals Goal Patient Goal Type Associated Problems Recent Progress Patient-Stated? Author Autogenera елена Goal Care Plan Autogenerated Problem No Lizbet Woodard RN documented as of this encounter Visit Diagnoses Not on filedocumented in this encounter Additional Health Concerns Active Problems Noted Date Diagnosed Date Autogenerated Problem 10/22/2024 documented as of this encounter Care Teams Director Of Veterans Affairs Relationship Specialty Start Date End Date Kaushal Heath MD [address] [place] [address] PCP - General Internal Medicine 10/30/23 Bigg Delarosa MD [address] [facility] [address] [place] [address] Referring Physician Gastroenterology 10/15/23 Jefe Choe MD [address] [facility] [address] [place] [address] Referring Physician Gastroenterology 10/15/23 documented as of this encounter
--- OUTSIDE RECORDS SUMMARY | 2024-10-23 08:04 | XMS_ITS | Patient Health Record ---
Author Organization [facility] Address [address] [place], [place] [id number] Care Team Providers Care Fireman Helper Name Role Phone JENNYFER KELLY Unavailable [phone] Kylie Ghosh Unavailable Unavailable Reason For Referral No Information Plan Of Treatment No Information Insurance Providers Payer Name Payer Address Payer Phone Subscriber Number Group Number Insured Name Patient Relationship to Insured Coverage Start Date Coverage End Date SRINIVASR Ludmila / ANURADHA [address] [id number] DARIUS GARCIAS Self - patient is the insured
--- OUTSIDE RECORDS SUMMARY | 2024-10-23 08:05 | XMS_ITS | Clinical Summary ---
Author Organization [facility] Address [address] [place] [address] Care Team Providers Care Template Worker Name Role Phone Bigg Delarosa MD Unavailable [phone] Jefe Choe MD Unavailable + Kaushal Heath MD Primary Care Provider + [phone] Allergies Active Allergy Reactions Criticality Noted Date Comments Azithromycin Rash Medium 02/17/[address] (PROTONIX) 40 mg EC tabletIndicati ons:Treatment of Non-Bleeding Gastric Disorder Take 1 tablet (40 mg total) by mouth every morning 4 Active cyanocobalamin (Vitamin B-12) 2,500 mcg tablet, sublingualIndi cations:Preven tion of Vitamin B12 Deficiency Take 1 tablet (2,500 mcg total) by mouth every morning Active prenat.vits,ca l,xuh-dtuf-iyu ic tabletIndicati ons:supplement Take 1 tablet by mouth every morning Active potassium citrate ER (UROCIT-K) 10 mEq (1,080 mg) CR tablet Take 1 tablet (10 mEq total) by mouth 2 (two) times a day 180 tablet 3 5 06/11/19 26 Active Additional Information Patient taking differently:10 mEq oral 2 times daily,Indications: Calcium Renal Calculi Prevention, Informant: Self, Reported on 10/15/2024 acetaminophen 500 mg capsuleIndicat ions:Pain Take 2 capsules (1,000 mg total) by mouth every 6 (six) hours 5 Active Additional Information Patient taking differently:1,000 mg oralEvery 6 hours PRN, Indications: Pain, Informant: Self, Reported on 10/15/2024 phenazopyridin e (PYRIDIUM) 100 mg tabletIndicati ons:Dysuria Take 1 tablet (100 mg total) by mouth 3 (three) times a day as needed for urinary pain 10 tablet 5 Active oxyBUTYnin (DITROPAN) 5 mg tablet Take 1 tablet (5 mg total) by mouth 3 (three) times a day as needed (bladder spasms) 15 tablet 5 Active losartan (COZAAR) 25 mg tabletIndicati ons:hypertensi on Take 1 tablet (25 mg total) by mouth every morning 4 10/01/19 25 Discontin ued(Tere nt Reported) ergocalciferol (VITAMIN D) 50,000 unit capsuleIndicat ions:Vitamin D Deficiency Take 1 capsule (50,000 Units total) by mouth once a week 5 10/14/19 25 Discontin ued(Thera py completed ) oxyCODONE (ROXICODONE) 5 mg immediate release tabletIndicati ons:Pain Take 1 tablet (5 mg total) by mouth every 6 (six) hours as needed for pain 5 tablet 5 10/14/19 25 Discontin ued(Thera py completed ) Active Problems Problem Noted Date Diagnosed Date Ileostomy present 07/19/2024 Pyelonephritis 07/19/2024 Ureteral stent present 07/19/2024 Staghorn calculus 07/16/2024 Diverticulitis 05/10/2024 Fever 12/09/2023 Ulcerative pancolitis with complication 12/05/19 24 Assessment & Plan (12/26/2023 11:47 AM MARKETING REGIONAL CONSULTANT): Patient is a 63 y.o. female with a history of hypertension, type 2 diabetes, and inflammatory bowel disease who is admitted from [facility] for progressive weight loss and nausea in the setting of multiple admissions for diverticulitis complicated by contained sigmoid perforation, scattered liver and spleen abscesses and adnexal mass. She was admitted to [facility] on 11/24 for further workup [...] Patient went to the OR 12/23 with CUPOLA MELTING SUPERVISOR, CRS and urology for ex lap, left [...] 11/26/2023 Assessment & Plan (12/25/2023 12:55 PM MARKETING REGIONAL CONSULTANT): Near resolution of hepatic and splenic abscesses. No plans for repeat imaging given improvement. Continue antibiotics as described elsewhere. Pulmonary nodule 11/26/2023 Assessment & Plan (12/26/2023 11:38 AM MARKETING REGIONAL CONSULTANT): Patient is a 63 y.o. female with a history of hypertension, type 2 diabetes, and inflammatory bowel disease who is admitted from [facility] for progressive weight loss and nausea in the setting of multiple admissions for diverticulitis complicated by contained sigmoid perforation, scattered liver and spleen abscesses and adnexal mass. She was admitted to [facility] on 11/24 for further workup [...] 11/27: No AFB seen, NGTD BAL Mycology 10/11: NGTD Pneumocystis DFA BAL 11/27: Negative BAL [...] 11/26/2023 Assessment & Plan (12/25/2023 12:55 PM MARKETING REGIONAL CONSULTANT): Near resolution of hepatic and splenic abscesses. [...] Encounters Date Type Department Care Team Description 10/22/2024 Telephone [facility] [address] [place] [address] Kary Ribeiro 10/22/2024 Orders Only [facility] [address] [place] [phone] Colby Curtis MD Kidney stone (Primary Dx) 10/22/2024 Telephone [facility] - [facility] Medicine Urology [address] [place] [address] 11th [place] [address] [place] [address] Yumiko Duong 10/22/2024 Orders Only [facility] Medicine Surgery [address] [place] [address] Medical Office Building [address] [place] [phone] Yo Ferreira MD Ileostomy present (HCC) (Primary Dx) 10/15/2024 1:32 PM CDT Anesthesia Event [facility] Operating Room 1 [place] [phone] Kevin Springer MD Heuvelman, Katherine Marie, NP 10/15/2024 1:00 PM CDT - 10/15/2024 3:00 PM CDT Surgery [facility] Operating Room 1 [place] [phone] Colby Curtis MD LITHOTRIPSY - LASER 10/15/2024 8:58 AM CDT - 10/15/2024 6:41 PM CDT Hospital Encounter [facility] Operating Room [address] [place] [phone] Colby Curtis MD Pyelonephritis Discharge Disposition: Discharge to home or self care 10/12/2024 Results Follow-Up [facility] ([facility]) - [facility] Medicine Urology [address] [place] [address] 11th [place] [address] [place] [phone] Colby Curtis MD Litholink 24Hr Urine Panel 10/07/2024 Telephone [facility] ([facility]) - [facility] Medicine Urology [address] 11th [place] [address] [place] [address] Colby Curtis MD 10/06/2024 Telephone [facility] Surgery [address] 2nd Floor [address] [place] [address] Wilma Vega, [facility] Scheduling Appointments 10/01/2024 Telephone [facility] Surgery [address] [place] [address] [address] [place] [address] Ivett Roberts RMA 09/30/2024 2:15 PM CDT Office Visit [facility] Surgery [address] 2nd [address] [place] [address] Yo Ferreira MD Ileostomy present (HCC) (Primary Dx) 09/27/2024 8:40 AM CDT [facility] - [facility] Medicine Urology [address] 11th [place] [address] [place] [address] Colby Curtis MD Renal calculus, left (Primary Dx) 09/13/2024 8:24 AM CDT - 09/13/2024 11:59 PM CDT Hospital Encounter [address] [address] Renal calculus, left Discharge Disposition: Discharge to home or self care 09/10/[address] [address] Polo Jackson 09/09/2024 Documentation [facility] Surgery [address] [place] [address] [place] [phone] Ivett Roberts RMA 08/17/2024 1:45 PM CDT Office Visit [facility] Surgery [facility] Medical Office Building [address] [place] [phone] Yo Ferreira MD Ileostomy present (HCC) (Primary Dx) from Last 3 Months Immunizations Immunization Administration Dates Next Due Tdap 10/27/2020,12/29/2019 Surgical History Surgery Date Site/Laterality Comments TUBAL LIGATION 02/17/1994 - 02/16/1995 CHOLECYSTECTOMY 08/18/2023 - 09/17/2023 COLONOSCOPY 02/17/2021 - 02/16/2022 LEFT COLECTOMY 12/24/2023 WITH END COLOSTOMY TOTAL ABDOMINAL HYSTERECTOMY W/ BILATERAL SALPINGOOPHORECTOMY 12/24/2023 EXPLORATORY LAPAROTOMY 07/16/2024 Exploratory laparotomy with takedown of colostomy and creation of Villar's colorectal anastomosis. Diverting loop ileostomy ILEOSTOMY 07/16/2024 Diverting Loop Ileostomy IMPLANT 02/17/1999 - 02/17/2000 Medical History Medical History Date Comments Hypertension [...] Tobacco: Never Tobacco Cessation:Counseling Given: Not Answered Alcohol Use Standard Drinks/Week Comments Never 0 (1 standard drink = 0.6 oz pur e alcohol) [facility] Utilities Answer Date Recorded In the past 12 months has [employer], gas, oil, or water [employer] threatened to shut off services in your [...] often do you attend chur ch or evangelical services? 1 to 4 times per year 07/19/2024 Do you belong to any clubs o r organizations such as buddhist groups, unions, fraternal or athletic groups, or [...] any time in the past 12 m [facility], were you homeless or living [...] Sign Reading Time Taken Comments Blood Pressure 131/71 10/15/2024 5:30 PM CDT Pulse 89 10/15/2024 5:40 PM CDT Temperature 36.2 C (97.2 F) 10/15/2024 5:30 PM CDT Respiratory Rate 12 10/15/2024 5:40 PM CDT Oxygen Saturation 97% 10/15/2024 5:40 PM CDT Inhaled Oxygen Concentration - - Weight 60.8 kg (134 lb) 10/15/2024 9:25 AM CDT Height 154.9 cm (5' 1) 10/15/2024 9:25 AM CDT Body Mass Index 25.32 10/15/2024 9:25 AM CDT Plan of Treatment Upcoming Encounters Date Type Department Care Team (Latest Contact Info) Description 11/26/2024 12:30 PM CDT Hospital Encounter [facility] Operating Room [address] [place] [address] Yo Ferreira MD [address] [facility] [phone] [place] [address] 11/26/2024 12:30 PM CDT - 11/26/2024 3:00 PM CDT Surgery [facility] Operating Room [address] [place] [address] Yo Ferreira MD [address] [facility] [phone] [place] [address] CLOSURE ILEOSTOMY Scheduled Procedures Name Priority Associated Diagnoses Date/Ti me CLOSURE ILEOSTOMY Ileostomy present (HCC) 11/26/2024 12:30 PM CDT Health Maintenance Due Date Last Done Comments Albumin Creatinine Ratio, Urine 1960 Breast Cancer Screening-Mammogram 1960 Osteoporosis Screening-Bone Density Scan 1960 Dilated Eye Exam 1960 Foot Exam 1960 Pneumococcal vaccine 65+ (1 of 2 - PCV) 1977 Zoster Vaccine (1 of 2) 2008 Well Visit 65+ 05/09/2023 Hemoglobin A1C 05/03/2024 11/04/2023, 10/18, 10/03/2023 Covid-19 Vaccine (3 - 2024-2 6 season) 2024 02/29/2020, 02/08/2020 Influenza Vaccine (#1) 2024 Depression Screening 11/24/2024 11/25/2023 Lipid Panel 12/03/2024 12/04/2023, 10/27/2023 eGFR 07/18/2025 07/18/2024, 06/19, 07/16/2024, Additional history exists Fall Risk Assessment 10/15/2025 10/15/2024 DTaP/Tdap/Td Vaccine (3 - Td or Tdap) 10/27/2030 10/27/2020, 12/29/2019 Colon Cancer Screening-Colonoscopy 07/15/20342024, 11/13/2023 Hepatitis B Screening Completed 10/27/2023 Hepatitis C Screening Completed 10/27/2023 Goals Goal Patient Goal Type Associated Problems Recent Progress Patient-Stated? Author Autogenera елена Goal Care Plan Autogenerated Problem No Lizbet Woodard RN Medical Devices Implanted Type Area Elementary Classroom Teacher Device Identifier Shelf Expiration Date Model / Serial / Lot [employer] Penny Stent Ureteral Double Pigtail Tria [id number] Ptfe [id number] - [id number] Implanted:Qty: 1 on 10/15/2024 by Colby Curtis MD at [facility] Stent Left: Kidney [employer] Penny [id number] 06/14/2027 [id number] / / [id number] Description:[employer] Tria Soft [employer] Stent Ureteral Set Double Pigtail Radiopaque Tip Universa [id number] Polyurethane Hydrophilic Coated [id number] - [id number] Implanted:Qty: 1 on 07/16/2024 at [facility] Left: Ureter [employer] 01/27/2027 [id number] / / [id number] Procedures Procedure Name Priority Date/Time Associated Diagnosis Comments FL FLUOROSCOPY < 1 HOUR IP Routine 10/15/2024 4:08 PM CDT TISSUE AEROBIC CULTURE Routine 10/15/2024 4:07 PM CDT SURGICAL PATHOLOGY Routine 10/15/2024 4: 03 PM CDT Pyelonephritis URINE CULTURE Routine 10/15/2024 2:04 PM CDT MA AN PROCEDURE PLACEHOLDER Routine 10/15/2024 1:49 PM CDT MA AN ELECTIVE ENDOTRACHEAL AIRWAY Routine 10/15/2024 1:49 PM CDT PYELOGRAM - RETROGRADE 10/15/2024 1:31 PM CDT Pyelonephritis Case Notes 10/14@1024: MAKE FIRST CASE PER [facility] VIA PHONE. BR@ 0700 Pt was called for ETAJNUI left@ 0732 Pt return call and stated she was told and text to arrive @ 1145. PT is an hr out to ETA EXCHANGE STENT - URETERAL 10/15/2024 1:31 PM CDT Pyelonephritis Case Notes 10/14@1024: MAKE FIRST CASE PER [facility] VIA PHONE. BR@ 0700 Pt was called for JUNI VACA left@ 0732 Pt return call and stated she was told and text to arrive @ 1145. PT is an hr out to ETA URETEROSCOPY 10/15/2024 1:31 PM CDT Pyelonephritis Case Notes 10/14@1024: MAKE FIRST CASE PER [facility] VIA PHONE. BR@ 0700 Pt was called for JUNI VACA left@ 0732 Pt return call and stated she was told and text to arrive @ 1145. PT is an hr out to ETA LITHOTRIPSY - LASER 10/15/2024 1 :31 PM CDT Pyelonephritis Case Notes 10/14@1024: MAKE FIRST CASE PER [facility] VIA PHONE. BR@ 0700 Pt was called for JUNI VACA left@ 0732 Pt return call and stated she was told and text to arrive @ 1145. PT is an hr out to ETA URINALYSIS, MICROSCOPIC ONLY STAT 10/15/2024 9:28 AM CDT URINE CULTURE STAT 10/15/2024 9:28 AM CDT URINALYSIS AND REFLEX TO MICROSCOPIC AND CULTURE STAT 10/15/2024 9:28 AM CDT LITHOLINK 24HR URINE PANEL Routine 10/05/2024 7:44 AM CDT Renal calculus, left CT KUB STONE WO CONTRAST Schedule Routine, Read Routine (OP Routine) 09/13/2024 8:43 AM CDT Renal calculus, left EGFR Timed 07/18/2024 8:43 PM CDT COLONOSCOPY 07/15/2024 10:39 AM CDT LIPID PANEL STAT 12/04/2023 5:24 PM CDT HEMOGLOBIN A1C STAT 11/04/2023 7:56 AM CDT HEPATITIS C ANTIBODY Routine 10/27/2023 9:30 AM CDT History of chronic ulcerative colitis High risk medications (not anticoagulants) long-term use from Last 3 Months or Most Recently Relevant to Health Maintenance Results * FL Fluoroscopy < 1 Hour (10/15/2024 4:08 PM CDT) Narrative [facility] - 10/15/2024 4:09 PM CDT The images from this study are not interpreted by Radiology. Please refer to the physician's procedure / OR operative note. Colby Curtis MD IMG FLUOROSCOPY PROCEDURES Final Result [id number] * Tissue aerobic culture Stone Kidney (10/15/2024 4:07 PM CDT) Report Final Report: No growth Stone (Kidney) 10/15/2024 4: 07 PM CDT 10/15/2024 5:24 PM CDT Narrative [facility] - 10/19/2024 9:21 AM CDT Left Kidney stones Testing performed by [facility] Microbiology Laboratory ([phone]) Specimens submitted from normally sterile body sites will have all bacterial morphotypes identified. Specimens that contain grossly mixed horacio and/or are from body sites that are not normally sterile will be examined for Staphylococcus aureus, Pseudomonas aeruginosa, beta-hemolytic strep, vancomycin-resistant Enterococcus and fungus. If any of these are isolated, the organism will be reported. Current interpretive data was last revised on 2016. Colby Curtis MD LAB MICROBIOLOGY - GENERAL ORDER INO Final Result [facility] [place] [address] * Surgical pathology (10/15/2024 4:03 PM CDT) Tissue (Calculus/calculi /stone, gross and Chemical Analysis) 10/15/2024 4:03 PM CDT Narrative PATHOLOGY [facility] - 10/19/2024 4:13 PM CDT EPIC results best viewed via link to PDF [facility] [place] [address] Note to Patients: This report may contain [...] Gender: F : 1960 (Age: 64) Address: [address] [place] [phone] Hospital #: [id number] Taken:10/15/2024 Received:10/15/2024 Reported: 10/19/2024 Patient Type: [facility] Service: Urology Location: [facility] Physician(s): Monserrat Mcclain M.D. Diagnosis: Left kidney, stones, removal - Lithiasis (gross examination only, sent for chemical analysis) sxst/10/15/2024 18:28 By this signature, I attest that the above diagnosis is based upon my personal examination of the slides(and/or other material indicated in the diagnosis). Andreina Mederos M.D. Report Electronically Reviewed and Signed Out By Andreina Mederos M.D. 10/19/2024 16:13:04 History: The patient is a 64-year-old woman presenting with pyelonephritis. Operative procedure: Lithotripsy laser; ureteroscopy. Specimen(s) Received: A: Left kidney stones Gross Description: Received in bloody fluid, labeled with the patient s identifiers and left kidney stones consists of multiple brown and black, multifaceted stone(s) admixed with hemorrhagic material measuring 1.8 x 1.8 x 1.0 cm in aggregate. Entirely submitted for chemical analysis. Jar 0. PA(s): Silvia Gupta By this signature, I attest that the above diagnosis is based upon my personal examination of the slides(and/or other material). Addenda/Procedures The performance characteristics of some immunohistochemical stains, fluorescence in-situ hybridization tests and immunophenotyping by flow cytometry cited in this report (if any) were determined by the Surgical Pathology and Flow Cytometry Departments at [facility] as part of an ongoing quality assurance coordinator program and in compliance with federally [...] Surgical Pathology and Flow Cytometry Departments of [facility]. It has not been cleared or approved by the U. S. Food and Drug Administration. IMAGES AND SCANNED DOCUMENTS, IF INCLUDED, ONLY VIEWABLE IN PDF VERSION OF REPORT Colby Curtis MD LAB PATHOLOGY ORDERABLES Final R esult PATHOLOGY [facility] 3rd Floor [place], [place] [phone] * Urine culture Urine, kidney aspirate Kidney, left (10/15/2024 2:04 PM CDT) Report Final Report: No growth Urine, kidney aspirate (Kidney, left) 10/15/2024 2:04 PM CDT 10/15/2024 5:23 PM CDT Narrative [facility] - 10/17/2024 7:04 PM CDT Left Kidney Urine Culture Indications for Culture:->Urology patient Testing performed by [facility] Microbiology Laboratory ([phone]) Colby Curtis MD LAB MICROBIOLOGY - GENERAL ORDER INO Final Result Performing Organization Address [facility] Co de Phone Number [facility] Department [place] [address] * MA AN ELECTIVE ENDOTRACHEAL AIRWAY, MA AN PROCEDURE PLACEHOLDER (10/15/2024 1:49 PM CDT) Narrative Cahtleen Hernandez CRNA - 10/15/2024 1:49 PM CDT Cathleen Hernandez CRNA 10/15/2024 1:50 PM Airway Patient location: OR Urgency: elective Indications for airway management: anesthesia Difficult airway: no Staff: Supervising provider: Kevin Springer MD Placed by: PACK PRESS OPERATOR: Ganga Martinez CRNA Emergent airway documentation: Risks and benefits [...] placement: video laryngoscopy Devices/Methods used in placement: stylet Insertion site: oral Cormack-Lehane (video): grade I - full view of glottis Cuff volume: 6 mL Cuff inflated with: air Placement verified by: auscultation and CO2 detection Airway secured with: silk tape Number of attempts: 1 Kevin Springer MD ANESTHESIA ORDERABLES Final Result * (ABNORMAL) Urinalysis reflex to microscopic and culture Urine, clean voided (10/15/2024 9:28 AM CDT) Color, ur Yellow Yellow Clarity, ur Cloudy(A) Clear [facility] Specific gravity, ur 1.015 1.003 - 1.030 [facility] pH, urine 5.0 [facility] Comment: Interpretive Data U rine pH is affected by diet, medications, systemic acid-base disturbances, and renal tubular function. pH may affect urinary stone formation. For example, urine pH below 6.0 may help reduce the tendency for calcium phosphate stones and pH greater than 6.0 may reduce the tendency for uric acid stone formation. Source: [facility] [employer] Current Interpretive Data was last revised on 2017 Protein, ur ql 1+(A) Negative [facility] Glucose, ur ql Negative Negative [facility] Ketones, ur Negative Negative [facility] Bilirubin, ur Negative Negative [facility] Blood, ur 2+(A) Negative [facility] Urobilinogen, ur <2.0 <2.0 mg/dL [facility] Nitrite, ur Negative Negative [facility] Leukocyte esterase, ur 3+(A) Negative [facility] UA reflex comment Reflex to microscopic UA will be performed. [facility] Urine, clean voided 10/15/2024 9:28 AM CDT 10/15/2024 9:35 AM CDT Colby Curtis MD LAB MICROBIOLOGY - GENERAL ORDER INO Final Result [facility] [place] [address] * (ABNORMAL) Urinalysis, microscopic only (10/15/2024 9:28 AM CDT) WBC, ur 21-50(A) 0 - 5 /HPF RBC, ur 6-10(A) 0 - 2 /HPF [facility] Epithelial cells, squamous, ur 1-5 0 - 5 /HPF [facility] Mucous, ur Present(A) [facility] Hyaline casts, ur 1-5 0 - 10 /LPF [facility] Culture Reflex Comment Reflex to urine culture will be performed. [facility] Urine, clean voided 10/15/2024 9:28 AM CDT 10/15/2024 9:35 AM CDT us Colby Curtis MD LAB URINE ORDERABLES Final Resul t Performing Organization Address [facility] Co de Phone Number [facility] Department [place] [address] * Urine culture Urine, clean voided (10/15/2024 9:28 AM CDT) Report Final Report: Less than 100,000 colonies/mL (clinically insignificant growth based on current clinical standards) Organism (CLINICALLY INSIGNIFICANT GROWTH [facility] Urine, clean voided 10/15/2024 9:28 AM CDT 10/15/2024 11:22 AM CDT Narrative [facility] - 10/16/2024 12:41 PM CDT Urine culture reflexed based upon urinalysis results. Testing performed by [facility] Microbiology Laboratory ([phone]) us Colby Curtis MD LAB MICROBIOLOGY - GENERAL ORDER INO Final Result Performing Organization Address [facility] Co de Phone Number [facility] Department [place] [address] * (ABNORMAL) Litholink 24Hr Urine Panel (10/05/2024 7:44 AM CDT) Cystine, Urine, Qualitative CANCELED [facility] - 01 Comment: Test not performed. Previous test results on file. Result canceled by the ancillary. Urine Volume (Preserved) 2,380 500 - 4,000 mL/24 hr [facility] - 01 Calcium Oxalate Saturation 0.30(L) 6.00 - 10.00 [facility] - 01 Calcium, Urine 7 <200 mg/24 hr [facility] - 01 Oxalate, Urine 26 20 - 40 mg/24 hr [facility] - 01 Citrate, Urine 196(L) >550 mg/24 hr [facility] - 01 Calcium Phosphate Saturation 0.00(L) 0.50 - 2.00 [facility] - 01 pH, 24 hr, Urine 5.182(L) 5.800 - 6.200 [facility] - 01 Uric Acid Saturation 1.02(H) <1.00 [facility] - 01 Uric Acid, Urine 361 <750 mg/24 hr [facility] - 01 Sodium, Urine 65 50 - 150 mmol/24 hr [facility] - 01 Potassium, Urine 75 20 - 100 mmol/24 hr [facility] - 01 Magnesium, Urine 19(L) 30 - 120 mg/24 hr [facility] - 01 Phosphorus, Urine 525(L) 600 - 1,200 mg/24 hr [facility] - 01 Ammonium, Urine 14(L) 15 - 60 mmol/24 hr [facility] - 01 Chloride, Urine 98 70 - 250 mmol/24 hr [facility] - 01 Sulfate, Urine 22 20 - 80 meq/24 hr [facility] - 01 Urea Nitrogen, Urine 7.52 6.00 - 14.00 g/24 hr [facility] - 01 Protein Catabolic Rate 1.0 0.8 - 1.4 g/kg/24 hr [facility] - 01 Creatinine, Urine 990 Not Applic. mg/24 hr [facility] - 01 Creatinine/Kg Body Weight 16.3 8.7 - 20.3 mg/24 hr/kg [facility] - 01 Calcium/Kg Body Weight 0.1 <4.0 mg/24 hr/kg [facility] - 01 Calcium/Creatini ne Ratio 7(L) 51 - 262 mg/g creat [facility] - 01 Comment Note [facility] - 01 Urine 10/05/2024 7:44 AM CDT 10/07/2024 Narrative [facility] - 10/12/2024 8:11 AM CDT Performed at: [facility] [id number] [employer] Tender: Kelsey Tran PhD, Phone: [phone] Colby Curtis MD LAB URINE ORDERABLES Edited Resu lt - Final [facility] - 01 * CT KUB Stone WO Contrast (09/13/2024 8:43 AM CDT) Anatomical Region Laterality Modality Abdomen N/A Computed Tomogra phy 09/30/2024 8:18 PM CDT Narrative 09/30/2024 8:39 PM CDT EXAM DESCRIPTION: CT KUB STONE WO CONTRAST REASON FOR STUDY: renal stones Checking status of left side stone / patient left ureteral stent Ileostomy due to diverticulitis Prev scan done 07/15/2024 TECHNIQUE: CT scan of the abdomen and pelvis performed without intravenous and without oral contrast using helical scanning technique. Reconstructed coronal and sagittal MPR images reviewed. All images stored on PACS. Automated exposure control was used as a dose optimization technique for this examination. COMPARISON: CT abdomen pelvis 07/15/2024 FINDINGS: The sensitivity for detection of visceral lesions is diminished without the use of intravenous contrast. LOWER CHEST: No significant pulmonary abnormalities. No effusion. LIVER: Normal size. No identified cystic or solid masses. GALLBLADDER: Surgically absent BILE DUCTS: No intrahepatic or extrahepatic ductal dilatation. SPLEEN: Normal size. No focal lesions. PANCREAS: No identified cystic or solid masses. No significant calcifications. No adjacent inflammation or peripancreatic fluid collections. Pancreatic duct not dilated. ADRENALS: Normal. KIDNEYS/URINARY TRACT: There has been interval placement of a left-sided double-J ureteral stent. Proximal aspect of the stent is coiled within the renal collecting system. The distal aspect of the stent is near the left ureterovesicular junction, however the urinary bladder is completely decompressed and the exact location of the stent is not well evaluated. There is moderate left-sided hydronephrosis. There is stranding adjacent to the renal pelvis and along the ureter. There is no hydroureter. Again noted is a large partially calcified stone measuring about 1.8 cm in the left renal collecting system. Normal appearance of the right kidney without hydronephrosis or hydroureter. GI: There is a trace hiatal hernia. Stomach is otherwise unremarkable. There is an anastomosis noted of the rectosigmoid junction and there are changes of partial colectomy. There is a left lower quadrant ostomy. There are no dilated or thick-walled loops of bowel appreciated. Trace stranding adjacent to the distal descending colon and in the left lower quadrant appear similar and may be postsurgical in nature. PERITONEUM: No ascites or free air. RETROPERITONEUM: No mass or adenopathy. REPRODUCTIVE: No significant abnormality. VASCULATURE: Moderate amount of calcified atherosclerotic plaque in the aorta and iliac vessels without aneurysm. MUSCULOSKELETAL: There is no suspicious osseous lesion. There are multilevel degenerative changes of the lumbar spine, similar to the comparison exam. OTHER: No other abnormality. IMPRESSION: 1. Interval placement of a left-sided double-J ureteral stent. The proximal aspect of the stent is coiled within the renal collecting system. The distal aspect of the stent is near the left ureterovesicular junction, however the urinary bladder is completely decompressed and the exact location of the stent is not well evaluated. There is moderate left-sided hydronephrosis. There is stranding adjacent to the renal pelvis and along the ureter. There is no hydroureter. Recommend correlation with urinalysis for signs of infection. 2. Unchanged large partially calcified stone in the left renal collecting system measuring about 1.8 cm. 3. Postsurgical changes of partial colectomy with left lower quadrant ostomy. There is mild stranding in the fat in the left lower quadrant which appears similar to the comparison examinations and could be postsurgical or postinflammatory in nature. THIS IS AN ELECTRONICALLY VERIFIED FINAL REPORT 09/30/2024 8:39 PM - Electronically signed by Daniel Garza M.D. AM: AM Report ID: [id number] Reading Location: [id number] Procedure Note Daniel Garza MD - 09/30/2024 EXAM DESCRIPTION: CT KUB STONE WO CONTRAST REASON FOR STUDY: renal stones Checking status of left side stone / patient left ureteral stentIleostomy due to diverticulitis Prev scan done 07/15/2024 TECHNIQUE: CT scan of the abdomen and pelvis performed without intravenousand without oral contrast using helical scanning technique. Reconstructed coronal and sagittal MPR images reviewed. All images stored on PACS.Automated exposure control was used as a dose optimization technique for this examination. COMPARISON: CT abdomen pelvis 07/15/2024 FINDINGS: The sensitivity for detection of visceral lesions is diminished withoutthe use of intravenous contrast. LOWER CHEST: No significant pulmonary abnormalities. No effusion. LIVER: Normal size. No identified cystic or solid masses. GALLBLADDER: Surgically absent BILE DUCTS: No intrahepatic or extrahepatic ductal dilatation. SPLEEN: Normal size. No focal lesions. PANCREAS: No identified cystic or solid masses. No significant calcifications. No adjacent inflammation or peripancreatic fluidcollections. Pancreatic duct not dilated. ADRENALS: Normal. KIDNEYS/URINARY TRACT: There has been interval placement of a left-sided double-J ureteral stent. Proximal aspect of the stent is coiled withinthe renal collecting system. The distal aspect of the stent is near the left ureterovesicular junction, however the urinary bladder is completely decompressed and the exact location of the stent is not well evaluated.There is moderate left-sided hydronephrosis. There is stranding adjacent to the renal pelvis and along the ureter. There is no hydroureter. Again notedis a large partially calcified stone measuring about 1.8 cm in the left renal collecting system. Normal appearance of the right kidney without hydronephrosis or hydroureter. GI: There is a trace hiatal hernia. Stomach is otherwise unremarkable.There is an anastomosis noted of the rectosigmoid junction and there are changesof partial colectomy. There is a left lower quadrant ostomy. There are no dilated or thick-walled loops of bowel appreciated. Trace strandingadjacent to the distal descending colon and in the left lower quadrant appearsimilar and may be postsurgical in nature. PERITONEUM: No ascites or free air. RETROPERITONEUM: No mass or adenopathy. REPRODUCTIVE: No significant abnormality. VASCULATURE: Moderate amount of calcified atherosclerotic plaque in the aorta and iliac vessels without aneurysm. MUSCULOSKELETAL: There is no suspicious osseous lesion. There are multilevel degenerative changes of the lumbar spine, similar to thecomparison exam. OTHER: No other abnormality. IMPRESSION: 1. Interval placement of a left-sided double-J ureteral stent. Theproximal aspect of the stent is coiled within the renal collecting system. Thedistal aspect of the stent is near the left ureterovesicular junction, howeverthe urinary bladder is completely decompressed and the exact location of thestent is not well evaluated. There is moderate left-sided hydronephrosis. Thereis stranding adjacent to the renal pelvis and along the ureter. There is no hydroureter. Recommend correlation with urinalysis for signs ofinfection. 2. Unchanged large partially calcified stone in the left renal collecting system measuring about 1.8 cm. 3. Postsurgical changes of partial colectomy with left lower quadrantostomy. There is mild stranding in the fat in the left lower quadrant whichappears similar to the comparison examinations and could be postsurgical or postinflammatory in nature. THIS IS AN ELECTRONICALLY VERIFIED FINAL REPORT 09/30/2024 8:39 PM - Electronically signed by Daniel Garza M.D. AM: AM Report ID: [id number] Reading Location: [place] [address] Colby Curtis MD IMG CT PROCEDURES Final Result * (ABNORMAL) eGFR (07/18/2024 8:43 PM CDT) [...] LAB BLOOD ORDERABLES Final R esult [facility] [address] [facility]. [place] [address] * Colonoscopy (07/15/2024 10:39 AM CDT) Anatomical Region Laterality Modality Other Narrative Procedure Note Yo Ferreira MD - 07/15/2024 10:39 AM CDT [facility] Patient Name: Farhana Russo Procedure Date: 07/15/2024 10:39 AM Date of : 1960 Admit Type: Outpatient Age: 64 Gender: Female Attending MD: Yo Ferreira M.D. Room: [facility] ENDOSCOPY ROOM 02 Note Status: Finalized [...] The scope was passed under direct vision.The [id number] Endoscsope was introduced through the descending colostomy and advanced to the the cecum, identified by appendiceal orifice andileocecal valve. The colonoscopy was performed with ease. The patient tolerated the procedure well. The qualityof the bowel preparation was excellent. The quality of the bowel preparation was evaluated using the BBPS ([place] Bowel Preparation Scale) with scores of:Right Colon [...] On: 07/15/2024 10:39 AM Recognized by the [place] [employer] for promoting quality in endoscopy us Yo Ferreira MD ENDOSCOPY PROCEDURES Final R esult * (ABNORMAL) Lipid panel (12/04/2023 5:24 PM [...] revised on 2017. Triglycerides 75 <=149 mg/dL [facility] Comment: Interpretive Data Ages < [...] revised on 2017. HDL 27(L) >=40 mg/dL [facility] Comment: Interpretive Data Ages < [...] 2017. LDL, calculated 28 <=129 mg/dL [facility] Comment: Interpretive Data Ages < [...] revised on 2023. Non-HDL Cholesterol 44 mg/dL [facility] Comment: Interpretive Data Ages < [...] revised on 2017. Chol/HDL ratio 3 [facility] Blood 12/04/2023 5:24 PM CDT 12/04/2023 5:34 PM CDT Narrative [facility] - 12/04/2023 7:03 PM CDT This lipid panel was automatically ordered due to a significant change in Troponin. The dietary status of the patient at the collection time should be correlated with the lipid results. us Álvaro Radford MD LAB BLOOD ORDERABLES Final Result [facility] Department [place] [address] * (ABNORMAL) Hemoglobin A1c (11/04/2023 7:56 AM CDT) Hgb A1C 5.7(H) 4.0 - 5.6 % Estimated Average Glucose 117 mg/dL [facility] Comment: The ADA recommends reporting [...] MD LAB BLOOD ORDERABLES F inal Result [facility] Department [place] [address] * Hepatitis C antibody Blood (10/27/2023 9:30 [...] revised on 2019. Testing performed by: [facility], [facility], [place]., [address] Blood 10/27/2023 9:30 AM CDT 10/27/2023 12:43 PM CDT Gildardo Jung MD LAB MICROBIOLOGY - GENERAL OR DERABLES Edited Result - Final [facility] [address] [place] [place] [address] from Last 3 Months or Most Recently Relevant to Health Maintenance Additional Health Concerns Active Problems Noted Date Diagnosed Date Autogenerated Problem 10/22/2024 Insurance MEDICARE [facility] MEDICARE [facility] Advance Directives For more information, please contact: [phone] * Full Code (Latest Code Status on [...] 5:00 PM 11/06/2023 7:28 PM Care Teams Template Worker Relationship Specialty Start Date End Date Kaushal Heath MD [address] [place] [address] PCP - General Internal Medicine 10/30/23 Bigg Delarosa MD [address] [facility] [address] [facility] [address] [place] [address] Referring Physician Gastroenterology 10/15/23 Jefe Choe MD [address] [facility] [address] [place] [address] Referring Physician Gastroenterology 10/15/23
--- OUTSIDE RECORDS SUMMARY | 2024-10-23 08:05 | XMS_ITS | Encounter Summary ---
Author Organization [facility] Address [address] [place] [address] Phone Care Team Providers Care Signal Wirer Name Role Phone Bigg Delarosa MD Unavailable [phone] Jefe Choe MD Unavailable + Melissa Rhodes MD Unavailable [phone] Kaushal Heath MD Primary Care Provider + [phone] Encounter Details Date Type Department Care Team (Late st Contact Info) Description 06/16/2024 Orders Only [facility] Scanning, Provider Social History Tobacco Use Types Packs/Day Years Used Date Smoking Tobacco: Never Passive Smoke Exposure: Never Smokeless Tobacco: Never C Utilities Answer Date Recorded In the past 12 months has [employer], gas, oil, or water [employer] threatened to shut off services in your home? No 11/29/2023 Social Connection and Isolation Panel Answer Date Recorded In a typical week, how many times do you talk on the phone with family, friends, or neighbors? More than three times a week 11/29/2023 How often do you get togethe r with friends or relatives? More than three times a week 11/29/2023 How often do you attend chur ch or gnosticism services? 1 to 4 times per year 11/29/2023 Do you belong to any clubs o r organizations such as caodaism groups, unions, fraternal or athletic groups, or [...] were you homeless or living in a longterm (including now)? No 11/29/2023 Personal Safety Answer [...] Description 11/26/2024 12:30 PM CDT Hospital Encounter [facility] Operating Room [address] [place] [address] Yo Ferreira MD [address] [facility] [place] [id number] [place], [place] [id number] 11/26/2024 12:30 PM CDT - 11/26/2024 3:00 PM CDT Surgery [facility] Operating Room [address] [address] Yo Ferreira MD [address] [facility] [place] [phone] [place], [place] [id number] CLOSURE ILEOSTOMY Scheduled Procedures Name Priority Associated Diagnoses Date/Ti me CLOSURE ILEOSTOMY Ileostomy present (HCC) 11/26/2024 12:30 PM CDT documented as of this encounter Procedures Procedure Name Priority Date/Time Associated Diagnosis Comments SCAN - LABS 06/16/2024 documented in this encounter Results * SCAN - LABS (06/16/2024) us Provider Scanning Final Result documented in this encounter Visit Diagnoses Not on filedocumented in this encounter Additional Health Concerns Infection Onset Date Last Indicated Resolved Time MDR gram neg/ESBL Comment:Contained infection treated and resolved. 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 12/24/2023 06/21/2024 3:05 AM CDT documented as of this encounter Care Teams Signal Wirer Relationship Specialty Start Date End Date Kaushal Heath MD [address] [place] [address] PCP - General Internal Medicine 10/30/23 Bigg Delarosa MD [address] [facility] [address] [place] [address] Referring Physician Gastroenterology 10/15/23 Jefe Choe MD [address] [facility] [address] [facility] [address] [place] [address] Referring Physician Gastroenterology 10/15/23 Melissa Rhodes MD [address] [facility] GYNECOLOGIC ONCOLOGY, [address] [address] Consulting Physician Gynecologic Oncology 10/30/23 8/07/11 documented as of this encounter
== END 2024-10-23 07:59 | disposition home or self-care (01) ==
PROVIDERS: PCP Internal Medicine
DX: N20.0 Calculus of kidney (principal)
CPT/HCPCS: 87086; 87186

== ENCOUNTER 2025-02-09 08:04 | Outpatient (CLI) | payer MEDICARE, OTHER, SELFPAY ==
--- OUTSIDE RECORDS SUMMARY | 2025-02-09 08:09 | XMS_ITS | Clinical Summary ---
Author Organization [facility] Address [address] [place] [address] Care Team Providers Care Intermediate Designer Name Role Phone Bigg Delarosa MD Unavailable [phone] Jefe Choe MD Unavailable + Kaushal Heath MD Primary Care Provider [phone] Allergies Active Allergy Reactions Criticality Noted Date Comments Azithromycin Rash High 02/17/[address] (PROTONIX) 40 mg EC tabletIndicatio ns:Treatment of Non-Bleeding Gastric Disorder Take 1 tablet (40 mg total) by mouth every morning 4 Active cyanocobalamin (Vitamin B-12) 2,500 mcg tablet, sublingualIndic ations:Preventi on of Vitamin B12 Deficiency Take 1 tablet (2,500 mcg total) by mouth every morning Active prenat.vits,erica ,exp-esxj-vpjrh tabletIndicatio ns:General health Take 1 tablet by mouth every morning Active potassium citrate ER (UROCIT-K) 10 mEq (1,080 mg) CR tablet Take 1 tablet (10 mEq total) by mouth 2 (two) times a day 180 tablet 3 5 06/11/19 26 Active tetrahydrozolin e-zinc (VISINE-AC) 0.05-0.25 % ophthalmic solutionIndicat ions:Ocular Irritation,Ocul ar Redness Administer 2 drops into both eyes 4 (four) times a day as needed (allergies/dry eyes) Active acetaminophen (TYLENOL) 500 mg tablet Take 2 tablets (1,000 mg total) by mouth every 8 (eight) hours as needed for pain or fever 30 tablet Active Additional Information Patient not taking.Reason: Other, Reported on 01/24/2025 oxyCODONE (ROXICODONE) 5 mg immediate release tabletIndicatio ns:Pain Take 1-2 tablets (5-10 mg total) by mouth every 4 (four) hours as needed for pain 10 tablet Active Additional Information Patient not taking.Reported on 01/24/2025 docusate sodium (COLACE) 100 mg capsuleIndicati ons:constipatio n Take 1 capsule (100 mg total) by mouth 2 (two) times a day as needed for constipation (while taking narcotic pain medications) with a glass of water 20 capsule Active Additional Information Patient not taking.Reported on 01/24/2025 Active Problems Problem Noted Date Diagnosed Date Pulmonary nodule 11/26/2023 Assessment & Plan (12/26/2023 11:38 AM SYSTEM PROGRAMMER): Patient is a 63 y.o. female with a history of hypertension, type 2 diabetes, and inflammatory bowel disease who is admitted [facility] for progressive weight loss and nausea in the setting of multiple admissions for diverticulitis complicated by contained sigmoid perforation, scattered liver and spleen abscesses and adnexal mass. She was admitted to [facility] on 11/24 for further workup and [...] please do not hesitate to reach out. 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 Hypertension 10/20/2023 Type II diabetes mellitus 10/20/2023 Resolved Problems Problem Noted Date Diagnosed Date Resolved Date Status post gastrointestinal surgery 01/04/2025 01/26/[address] 11/26/2024 Ileostomy present 07/19/2024 01/26/2025 Pyelonephritis 07/19/2024 01/26/2025 Ureteral stent present 07/19/202401/26 Staghorn calculus 07/16/2024 01/26/2025 Diverticulitis 05/10/2024 01/26/[address] 01/13/2024 Fever 12/09/2023 01/26/2025 Ulcerative pancolitis with complication 12/05/2023 01/26/2025 Assessment & Plan (12/26/2023 11:47 AM SYSTEM PROGRAMMER): Patient is a 63 y.o. female with a history of hypertension, type 2 diabetes, and inflammatory bowel disease who is admitted from [facility] for progressive weight loss and nausea in the setting of multiple admissions for diverticulitis complicated by contained sigmoid perforation, scattered liver and spleen abscesses and adnexal mass. She was admitted to [facility] on 11/24 for further workup and [...] Patient went to the OR 12/23 with SWITCHING OPERATOR, CRS and urology for ex lap, left colectomy with end colostomy, LIBRA, BSO and ureteral stent placement. Surgery reporting source control archived. Given source control has been achieved, we are planning on 5 days of antibiotics from surgery. On assessment today, patient reports minimal use of her FIELD MAP EDITOR and that she typically has abdominal discomfort [...] out. ID signing off Severe malnutrition 11/27/2023 01/27/20 25 Consolidation of left upper lobe of lung 11/27/2023 01/26/2025 Assessment & Plan (12/03/2023 3:35 PM CDT): [...] improvement in FRANKLIN opacities Splenic abscess 11/26/2023 01/26/2025 Assessment & Plan (12/25/2023 12:55 PM SYSTEM PROGRAMMER): Near resolution of hepatic and splenic abscesses. No plans for repeat imaging given improvement. Continue antibiotics as described elsewhere. Hepatic abscess 11/26/2023 01/26/2025 Assessment & Plan (12/25/2023 12:55 PM SYSTEM PROGRAMMER): Near resolution of hepatic and splenic abscesses. No plans for repeat imaging given improvement. Continue antibiotics as described elsewhere. Physical deconditioning 11/25/202301/17 Expressive aphasia 11/04/2023 History of chronic ulcerative colitis 10/27/2023 01/26/2025 Diverticulitis of intestine 10/20/2023 01/26/2025 Moderate protein-calorie malnutrition 10/03/2023 11/25/2023 Abdominal pain 10/02/2023 10/20/2023 Encounters Date Type Department Care Team Description 01/27/2025 2:35 PM SYSTEM PROGRAMMER Lab [facility] ([facility]) [address] [place] [address] Ovarian tumor of borderline malignancy, left 01/27/2025 11:45 AM SYSTEM PROGRAMMER Office Visit [facility] Obstetrics and Gynecology [address] [facility] 13th [place] [address] Melissa Rhodes MD Ovarian tumor of borderline malignancy, left 01/27/2025 Orders Only [facility] Obstetrics and Gynecology [address] [facility] 13th [place] [address] Debbi Marshall RN Ovarian tumor of borderline malignancy, left (Primary Dx) 01/24/2025 9:20 AM SYSTEM PROGRAMMER Office Visit [facility] ([facility]) - [facility] Medicine Urology [address] [facility] 11th [place] [address] Colby Curtis MD Nephrolithiasis (Primary Dx) 01/24/2025 7:22 AM SYSTEM PROGRAMMER - 01/24/2025 11:59 PM SYSTEM PROGRAMMER Hospital Encounter [facility] ([facility]) [address] [place] [id number] Colby Curtis MD Renal calculus, left Discharge Disposition: Discharge to home or self care 01/04/2025 2:45 PM SYSTEM PROGRAMMER Office Visit [facility] Medicine Surgery [address] [facility] Medical Office Building [address] [place] [address] Yo Ferreira MD Status post gastrointestinal surgery (Primary Dx) 12/08/2024 Telephone [facility] Surgery [address] [facility] Floor [address] [place] [address] Yo Ferreira MD Suture / Staple Removal 11/26/2024 11:27 AM CDT Anesthesia Event [facility] Operating Room [id number] [place] [address] [place] [address] Mark Kasper MD Keeline, Maureen Hartmann MD 11/26/2024 10:40 AM CDT - 11/26/2024 1:[address] [facility] Operating Room [address] [address] [place], [place] [address] Yo Ferreira MD CLOSURE ILEOSTOMY 11/26/2024 7:41 AM CDT - 11/28/2024 1:07 PM CDT Hospital Encounter [facility] [address] [address] [place] [address] [id number] Yo Ferreira MD Ileostomy present (HCC) (Primary Dx) Discharge Disposition: Discharge to home or self care 11/25/2024 [facility] Surgery [address] [facility] 2nd Floor [address] [place] [address] Wilma Vega, [facility] Surgery Confirmation 11/19/2024 9:55 AM CDT - 11/19/2024 11:59 PM CDT Hospital Encounter [facility] Imaging [address] [address] [id number] Ileostomy present (HCC) Discharge Disposition: Discharge to home or self care 11/19/2024 8:30 AM CDT Office Visit [facility] Pre-Anesthesia Testing [id number] [address] [id number] Preoperative testing (Primary Dx); Elevated protime; Pre-diabetes 11/19/2024 8:[address] [facility] [address] [address] [place] [id number] Preoperative testing; Elevated protime; Ileostomy present (HCC) from Last 3 Months Immunizations Immunization Administration Dates Next Due COVID-19 mRNA (Marfeel) 0.3 m L (30 mcg) vaccine (12 years and up) 11/01/2024 Tdap 10/27/2020,12/29/2019 Surgical History Surgery Date Site/Laterality Comments TUBAL LIGATION 02/17/1994 - 02/16/1995 CHOLECYSTECTOMY 08/18/2023 - 09/17/2023 COLONOSCOPY 02/17/2021 - 02/16/2022 LEFT COLECTOMY 12/24/2023 WITH END COLOSTOMY TOTAL ABDOMINAL HYSTERECTOMY W/ BILATERAL SALPINGOOPHORECTOMY 12/24/2023 EXPLORATORY LAPAROTOMY 07/16/2024 Exploratory laparotomy with takedown of colostomy and creation of Villar's colorectal anastomosis. Diverting loop ileostomy ILEOSTOMY 07/16/2024 Diverting Loop Ileostomy IMPLANT 02/17/1999 - 02/17/2000 ILEOSTOMY CLOSURE 11/26/2024 Medical History Medical History Date Comments Hypertension Diabetes mellitus Adrenal mass Diverticulitis Kidney stone Type 2 diabetes mellitus [address] in place (HCC) 01/13/2024 Family History Medical History Relation Name Comments Emphysema Father Diabetes Mother Stroke Mother Anesthesia problems Neg Hx Malig Hypertension Neg Hx Malig Hyperthermia Neg Hx Pseudochol deficiency Neg Hx Relation Name Status Comments Father Mother Social History Tobacco Use Types Packs/Day Years Used Date Smoking Tobacco: Never Passive Smoke Exposure: Past Smokeless Tobacco: Never Tobacco Cessation:Counseling Given: No Alcohol Use Standard Drinks/Week Comments Never 0 (1 standard drink = 0.6 oz pur e alcohol) [employer] Utilities Answer Date Recorded In the past 12 months has [employer] ([employer]), gas, oil, or water [employer] threatened to shut off services in your [...] any clubs o r organizations such as mormonism groups, unions, fraternal or athletic groups, or [...] in the past 12 m [facility], were you homeless or living in a senior living (including now)? No 07/19/2024 AUDIT-C Answer Date Recorded Q1: How often do you have a drink containing alcohol? Never 11/19/2024 Q2: How many drinks containi ng alcohol do you have on a typical day when you are drinking? Patient does not drink Q3: How often do you have si x or more drinks on one occasion? Never 11/19/2024 Personal Safety Answer Date Recorded Have you ever been in or are you currently in a harmful physical or emotional relationship or is someone making you feel afraid or unsafe? Denies 11/26/2024 Comments No Sex and Gender Information Value [...] Sign Reading Time Taken Comments Blood Pressure 100/61 01/27/2025 11:17 AM SYSTEM PROGRAMMER Pulse 88 01/27/2025 11:17 AM SYSTEM PROGRAMMER Temperature 37 C (98.6 F) 01/27/2025 11:17 AM SYSTEM PROGRAMMER Respiratory Rate 16 01/27/2025 11:17 AM SYSTEM PROGRAMMER Oxygen Saturation 98% 01/27/2025 11:17 AM SYSTEM PROGRAMMER Inhaled Oxygen Concentration - - Weight 64.2 kg (141 lb 8 oz) 01/27/2025 11:17 AM SYSTEM PROGRAMMER Height 154.9 cm (5' 0.98) 01/27/2025 11:[address] Body Mass Index 26.75 01/27/2025 11:17 AM SYSTEM PROGRAMMER Plan of Treatment Health Maintenance Due Date Last Done Comments Albumin Creatinine Ratio, Urine 1958 Breast Cancer Screening-Mammogram 1958 Osteoporosis Screening-Bone Density Scan 1958 Dilated Eye Exam 1958 Foot Exam 1958 Pneumococcal vaccine 65+ (1 of 2 - PCV) 1977 Zoster Vaccine (1 of 2) 2008 Well Visit 65+ 05/09/2023 Hemoglobin A1C 05/03/2024 11/04/2023, 10/18, 10/03/2023 Influenza Vaccine (#1) 2024 Depression Screening 11/24/2024 11/25/2023 Lipid Panel 12/03/2024 12/04/2023, 10/27/2023 Covid-19 Vaccine (4 - 2024-2 6 season) 2025 11/01/2024, 02/29/2020, 02/08/2020 eGFR 11/27/2025 11/27/2024, 11/17, 11/19/2024, Additional history exists Fall Risk Assessment 11/28/2025 11/28/2024 DTaP/Tdap/Td Vaccine (3 - Td or Tdap) 10/27/2030 10/27/2020, 12/29/2019 Colon Cancer Screening-Colonoscopy 07/15/20342024, 11/13/2023 Hepatitis B Screening Completed 10/27/2023 Hepatitis C Screening Completed 10/27/2023 Medical Devices Explanted Type Area Hot Knife Cutter Device Identifier Shelf Expiration Date Model / Serial / Lot [employer] Penny Stent Ureteral Double Pigtail Tria [id number] Ptfe [id number] - [id number] Implanted:Qty: 1 on 10/15/2024 by Colby Curtis MD at [facility] Explanted:Qty: 1 on 11/01/2024 by Stephy Borrero PA Stent Left: Kidney [employer] Penny [id number] 06/14/2027 [id number] Description:[employer] Tria Soft [employer] Stent Ureteral Set Double Pigtail Radiopaque Tip Universa [id number] Polyurethane Hydrophilic Coated [id number] - [id number] Implanted:Qty: 1 on 07/16/2024 by Alvarado Blackman DO at [facility] Explanted:Qty: 1 on 10/15/2024 by Colby Curtis MD Left: Ureter [employer] 01/27/2027 [id number] / / [id number] Procedures Procedure Name Priority Date/Time Associated Diagnosis Comments CA 125 Routine 01/27/2025 12:34 PM SYSTEM PROGRAMMER Ovarian tumor of borderline malignancy, left CT KUB STONE WO CONTRAST Schedule Routine, Read Routine (OP Routine) 01/24/2025 8:57 AM SYSTEM PROGRAMMER Renal calculus, left LITHOLINK 24HR URINE PANEL Routine 12/30/2024 7:05 AM SYSTEM PROGRAMMER Renal calculus, left EGFR Timed 11/27/2024 9:18 PM CDT BASIC METABOLIC PANEL Timed 11/27/2024 9:18 PM CDT CBC WITHOUT DIFFERENTIAL Timed 11/27/2024 9:18 PM CDT EGFR Timed 11/26/2024 10:34 PM CDT BASIC METABOLIC PANEL Timed 11/26/2024 10:34 PM CDT CBC WITHOUT DIFFERENTIAL Timed 11/26/2024 10:34 PM CDT POCT GLUCOSE DEVICE Routine 11/26/2024 1 2:44 PM CDT SURGICAL PATHOLOGY Routine 11/26/2024 12 :15 PM CDT Ileostomy present (HCC) MA AN PROCEDURE PLACEHOLDER Routine 11/26/2024 11:45 AM CDT MA AN ELECTIVE ENDOTRACHEAL AIRWAY Routine 11/26/2024 11:45 AM CDT CLOSURE ILEOSTOMY 11/26/2024 11: 25 AM CDT Ileostomy present (HCC) POCT GLUCOSE DEVICE Routine 11/26/2024 8 :49 AM CDT FL WATER SOLUBLE ENEMA Schedule Routine, Read Routine (OP Routine) 11/19/2024 12:00 PM CDT Ileostomy present (HCC) EGFR Routine 11/19/2024 9:47 AM CDT Ileostomy present (HCC) DIFFERENTIAL AUTO Routine 11/19/2024 9:4 7 AM CDT Preoperative testing BASIC METABOLIC PANEL Routine 11/19/2024 9:47 AM CDT Ileostomy present (HCC) TYPE AND SCREEN 14 DAY Routine 11/19/2024 9:47 AM CDT Preoperative testing CBC WITH AUTO DIFFERENTIAL Routine 11/19/2024 9:47 AM CDT Preoperative testing PROTIME-INR Routine 11/19/2024 9:47 AM CDT Preoperative testing Elevated protime ECG 12-LEAD Routine 11/19/2024 9:04 AM CDT Preoperative testing COLONOSCOPY 07/15/2024 10:39 AM CDT LIPID PANEL STAT 12/04/2023 5:24 PM CDT HEMOGLOBIN A1C STAT 11/04/2023 7:56 AM CDT HEPATITIS C ANTIBODY Routine 10/27/2023 9:30 AM CDT History of chronic ulcerative colitis High risk medications (not anticoagulants) long-term use from Last 3 Months or Most Recently Relevant to Health Maintenance Results * CA 125 (01/27/2025 12:34 PM SYSTEM PROGRAMMER) CA 125 ag 5.3 0.0 - 38.1 units/mL Comment: Interpretive Data The Marry CA 125 assay procedure was used. Results from different manufacturers or methods may not be comparable. Serial testing should be performed using the same method. Blood 01/27/2025 12:3 4 PM SYSTEM PROGRAMMER 01/27/2025 12:50 PM SYSTEM PROGRAMMER us Melissa Rhodes MD LAB BLOOD ORDERABLES Samantha lott Result Performing Organization Address City/State/[facility] Co de Phone Number [facility] Department [place] [address] * CT KUB Stone WO Contrast (01/24/2025 8:57 AM SYSTEM PROGRAMMER) Anatomical Region Laterality Modality Abdomen N/A Computed Tomogra phy 01/24/2025 9:13 AM SYSTEM PROGRAMMER Impressions 01/24/2025 9:13 AM SYSTEM PROGRAMMER 1. Interval removal of a left ureteral stent and resolution of previously seen hydronephrosis and fat stranding along the course of the ureter. No renal calculus. 2. Redemonstrated post surgical changes of left colectomy with interval postsurgical changes of ileostomy takedown, with a moderate-sized ventral hernia containing nondilated bowel. Electronically signed by: Fercho Duke MD PHD Narrative 01/24/2025 9:13 AM SYSTEM PROGRAMMER EXAMINATION: CT KUB STONE WO CONTRAST HISTORY: 64-year-old with left renal calculi status post ureteral stent placement. TECHNIQUE: Transaxial computed tomographic images of the abdomen and pelvis were obtained without intravenous contrast according to the renal stone protocol. COMPARISON: CT dated 09/13/2024. FINDINGS: No focal hepatic lesion is identified on this noncontrast examination. The gallbladder is surgically absent. Pancreas is normal. No intra or extrahepatic biliary ductal dilatation. The spleen is unremarkable. Mild thickening of the adrenal glands, greater than left, nonspecific. Interval removal of a previously seen left ureteral stent. Normal noncontrast appearance of the kidneys, without hydronephrosis or nephrolithiasis. A subcentimeter left lower renal pole intermediate attenuation lesion previously likely represented a simple renal cyst, now with hemorrhagic/proteinaceous contents. Interval improvement in previously seen left periureteral fat stranding. The urinary bladder is nondistended. The uterus is surgically absent. The stomach is nondistended. The duodenal sweep is normal. No evidence of bowel obstruction. Post surgical changes of left colectomy and ostomy takedown, with anastomotic suture lines noted within the pelvis. At the prior ostomy site, there is a 3.1 cm simple fluid attenuation collection representing a postoperative seroma. The appendix is surgically absent. No mesenteric, retroperitoneal, or pelvic lymphadenopathy. Scattered subcentimeter mesenteric lymph nodes are nonpathologically enlarged, but prominent in multiplicity with surrounding mild fat stranding, likely representing evolving postoperative changes. The abdominal aorta is normal in course and caliber. Calcified atherosclerotic disease of the origins of the celiac trunk and superior mesenteric artery. Mild atherosclerotic disease involving the aortobiiliac vessels. Moderate-sized midline ventral hernia containing nondilated bowel, without surrounding fat stranding or free fluid. An additional smaller midline ventral hernia is noted inferiorly. No pneumoperitoneum is or ascites. Within the partially imaged inferior chest, the heart size is normal without pericardial effusion. No pleural effusion, pulmonary edema, pulmonary consolidation, or pneumothorax. No suspicious osseous lesion. Moderate multilevel degenerative disc disease of the lumbar spine, greatest at L2-L3. Procedure Note Fercho Duke MD PhD - 01/24/2025 EXAMINATION: CT KUB STONE WO CONTRAST HISTORY: 64-year-old with left renal calculi status post ureteral stent placement. TECHNIQUE: Transaxial computed tomographic images of the abdomen and pelvis were obtained without intravenous contrast according to the renal stone protocol. COMPARISON: CT dated 09/13/2024. FINDINGS: No focal hepatic lesion is identified on this noncontrast examination. The gallbladder is surgically absent. Pancreas is normal. No intra or extrahepatic biliary ductal dilatation. The spleen is unremarkable. Mild thickening of the adrenal glands, greater than left, nonspecific. Interval removal of a previously seen left ureteral stent. Normal noncontrast appearance of the kidneys, without hydronephrosis or nephrolithiasis. A subcentimeter left lower renal pole intermediate attenuation lesion previously likely represented a simple renal cyst, now with hemorrhagic/proteinaceous contents. Interval improvement in previously seen left periureteral fat stranding. The urinary bladder is nondistended. The uterus is surgically absent. The stomach is nondistended. The duodenal sweep is normal. No evidence of bowel obstruction. Post surgical changes of left colectomy and ostomy takedown, with anastomotic suture lines noted within the pelvis. At the prior ostomy site, there is a 3.1 cm simple fluid attenuation collection representing a postoperative seroma. The appendix is surgically absent. No mesenteric, retroperitoneal, or pelvic lymphadenopathy. Scattered subcentimeter mesenteric lymph nodes are nonpathologically enlarged, but prominent in multiplicity with surrounding mild fat stranding, likely representing evolving postoperative changes. The abdominal aorta is normal in course and caliber. Calcified atherosclerotic disease of the origins of the celiac trunk and superior mesenteric artery. Mild atherosclerotic disease involving the aortobiiliac vessels. Moderate-sized midline ventral hernia containing nondilated bowel, without surrounding fat stranding or free fluid. An additional smaller midline ventral hernia is noted inferiorly. No pneumoperitoneum is or ascites. Within the partially imaged inferior chest, the heart size is normal without pericardial effusion. No pleural effusion, pulmonary edema, pulmonary consolidation, or pneumothorax. No suspicious osseous lesion. Moderate multilevel degenerative disc disease of the lumbar spine, greatest at L2-L3. IMPRESSION: 1. Interval removal of a left ureteral stent and resolution of previously seen hydronephrosis and fat stranding along the course of the ureter. No renal calculus. 2. Redemonstrated post surgical changes of left colectomy with interval postsurgical changes of ileostomy takedown, with a moderate-sized ventral hernia containing nondilated bowel. Electronically signed by: Fercho Duke MD PHD Colby Curtis MD IM CT PROCEDURES Final Result * (ABNORMAL) Litholink 24Hr Urine Panel (12/30/2024 7:05 AM SYSTEM PROGRAMMER) Cystine, Urine, Qualitative CANCELED [facility] - 01 Comment: Test not performed. Previous test results on file. Result canceled by the ancillary. Urine Volume (Preserved) 3,300 500 - 4,000 mL/24 hr [facility] - 01 Calcium Oxalate Saturation 0.48(L) 6.00 - 10.00 [facility] - 01 Calcium, Urine 25 <200 mg/24 hr [facility] - 01 Oxalate, Urine 20 20 - 40 mg/24 hr [facility] - 01 Citrate, Urine 395(L) >550 mg/24 hr [facility] - 01 Calcium Phosphate Saturation 0.09(L) 0.50 - 2.00 [facility] - 01 pH, 24 hr, Urine 6.801(H) 5.800 - 6.200 [facility] - 01 Uric Acid Saturation 0.04 <1.00 [facility] - 01 Uric Acid, Urine 348 <750 mg/24 hr [facility] - 01 Sodium, Urine 106 50 - 150 mmol/24 hr [facility] - 01 Potassium, Urine 58 20 - 100 mmol/24 hr [facility] - 01 Magnesium, Urine 24(L) 30 - 120 mg/24 hr [facility] - 01 Phosphorus, Urine 367(L) 600 - 1,200 mg/24 hr [facility] - 01 Ammonium, Urine 8(L) 15 - 60 mmol/24 hr [facility] - 01 Chloride, Urine 95 70 - 250 mmol/24 hr [facility] - 01 Sulfate, Urine 23 20 - 80 meq/24 hr [facility] - 01 Urea Nitrogen, Urine 6.96 6.00 - 14.00 g/24 hr [facility] - 01 Protein Catabolic Rate 0.9 0.8 - 1.4 g/kg/24 hr [facility] - 01 Creatinine, Urine 1,071 Not Applic. mg/24 hr [facility] - 01 Creatinine/Kg Body Weight 17.6 8.7 - 20.3 mg/24 hr/kg [facility] - 01 Calcium/Kg Body Weight 0.4 <4.0 mg/24 hr/kg [facility] - 01 Calcium/Creatini ne Ratio 23(L) 51 - 262 mg/g creat [facility] - 01 Comment Note [facility] - 01 Urine 12/30/2024 7:05 AM SYSTEM PROGRAMMER 12/31/2024 Narrative [facility] - 01/04/2025 11:08 PM SYSTEM PROGRAMMER Test(s) [id number], Urine, Qualitative; [id number], Urine; [id number], 24 hr, Urine; [id number], Urine; [id number]- Sulfate, Urine was developed and its performance characteristics determined by [facility]. It has not been cleared or approved by the Food and Drug Administration. Performed at: 01 - [address] [id number] Artificial Insemination Technician: Kelsey Tran PhD, Phone: [phone] us Colby Curtis MD LAB URINE ORDERABLES Edited Resu lt - Final Performing Organization Address City/[facility]/ZIP Co de Phone Number [facility] - * (ABNORMAL) eGFR (11/27/2024 9:18 PM CDT) eGFR 38(L) >=60 mL/min/1. 73 m2 Comment: Interpretive Data [...] interpretive data was last reviewed 2020. Blood 11/27/2024 9:18 PM CDT 11/27/2024 9:20 PM CDT us Yo Ferreira MD LAB BLOOD ORDERABLES Final R esult GO [place] [id number] [facility]. Department of Laboratories [place] [id number] * (ABNORMAL) CBC without differential (11/27/2024 9:18 PM CDT) [facility] WBC 7.55 3.80 - 9.90 K/cumm Hgb 9.6(L) 11.9 - 15.5 g/dL [facility] Hct 29.1(L) 35.6 - 45.5 % [facility] Plt 150 150 - 400 K/cumm [facility] MPV 9.0(L) 9.1 - 12.3 fL [facility] RBC 3.19(L) 3.90 - 5.20 M/cumm [facility] MCV 91.2 81.3 - 96.4 fL [facility] MCH 30.1 27.1 - 33.3 pg [facility] MCHC 33.0 32.3 - 35.7 g/dL [facility] RDW CV 13.4 11.1 - 14.9 % [facility] RDW SD 44.0 35.7 - 48.1 fL [facility] NRBC abs 0.00 0.00 - 0.01 K/cumm [facility] Blood 11/27/2024 9:18 PM CDT 11/27/2024 9:20 PM CDT Narrative [facility] - 11/27/2024 9:22 PM CDT Obtain POD 1 at 2200. us Yo Ferreira MD LAB BLOOD ORDERABLES Final R esult GO [facility] [address] [facility]. [facility] [place] [address] * (ABNORMAL) Basic metabolic panel (11/27/2024 9:18 PM CDT) [facility] Sodium 139 135 - 145 mmol/L Potassium, pl 4.0 3.3 - 4.9 mmol/L [facility] Chloride 103 97 - 110 mmol/L [facility] CO2 26 22 - 32 mmol/L [facility] Anion gap 10 2 - 15 mmol/L [facility] BUN 26(H) 6 - 25 mg/dL [facility] Creatinine 1.50(H) 0.60 - 1.10 mg/dL [facility] Glucose 139 70 - 199 mg/dL [facility] Comment: Interpretive Data Fasting glucose >/= [...] 2022. Calcium 8.6 8.5 - 10.3 mg/dL [facility] Blood 11/27/2024 9:18 PM CDT 11/27/2024 9:20 PM CDT Narrative [facility] - 11/27/2024 9:38 PM CDT Obtain POD 1 at 2200. us Yo Ferreira MD LAB BLOOD ORDERABLES Final R esult [facility] [address] [facility]. Department of Laboratories [place], [place] [id number] * (ABNORMAL) eGFR (11/26/2024 10:34 PM CDT) eGFR 41(L) >=60 mL/min/1. 73 [...] interpretive data was last reviewed 2020. Blood 11/26/2024 10:3 4 PM CDT 11/26/2024 10:37 PM CDT us Yo Ferreira MD LAB BLOOD ORDERABLES Final R esult [facility] [address] [facility]. Department of Laboratories [place], [place] [id number] * (ABNORMAL) CBC without differential (11/26/2024 10:34 PM CDT) WBC 7.40 3.80 - 9.90 K/cumm Hgb 10.1(L) 11.9 - 15.5 g/dL [facility] Hct 30.1(L) 35.6 - 45.5 % [facility] Plt 155 150 - 400 K/cumm [facility] MPV 9.2 9.1 - 12.3 fL [facility] RBC 3.35(L) 3.90 - 5.20 M/cumm [facility] MCV 89.9 81.3 - 96.4 fL [facility] MCH 30.1 27.1 - 33.3 pg [facility] MCHC 33.6 32.3 - 35.7 g/dL [facility] RDW CV 13.2 11.1 - 14.9 % [facility] RDW SD 43.6 35.7 - 48.1 fL [facility] NRBC abs 0.00 0.00 - 0.01 K/cumm [facility] Blood 11/26/2024 10:3 4 PM CDT 11/26/2024 10:37 PM CDT Narrative [facility] - 11/26/2024 10:40 PM CDT Obtain POD 0 at 2200. Yo Ferreira MD LAB BLOOD ORDERABLES Final R esult Performing Organization Address [facility]/ZIP Co de Phone Number GO JAR[facility] [address] [employer] [address] * (ABNORMAL) Basic metabolic panel (11/26/2024 10:34 PM CDT) Sodium 134(L) 135 - 145 mmol/L Potassium, pl 4.8 3.3 - 4.9 mmol/L [facility] Chloride 100 97 - 110 mmol/L GO [facility] CO2 20(L) 22 - 32 mmol/L [facility] Anion gap 14 2 - 15 mmol/L GO [facility] BUN 24 6 - 25 mg/dL [facility] Creatinine 1.40(H) 0.60 - 1.10 mg/dL [facility] Glucose 248(H) 70 - 199 mg/dL [facility] Comment: Interpretive Data Fasting glucose >/= 126 [...] 2022. Calcium 8.6 8.5 - 10.3 mg/dL [facility] Blood 11/26/2024 10:3 4 PM CDT 11/26/2024 10:37 PM CDT Narrative [facility] - 11/26/2024 11:09 PM CDT Obtain POD 0 at 2200. Yo Ferreira MD LAB BLOOD ORDERABLES Final R esult Performing Organization Address [facility]/ZIP Co de Phone Number GO [facility] [address] [facility] [place] [address] * POCT glucose (11/26/2024 12:44 PM CDT) Glucose, POC 108 70 - 199 mg/dL Comment: Interpretive Data Glucose is assumed to be non-fasting. Fasting Glucose reference ranges are: 0 - 150 years: 70 mg/dL - 99 mg/dL Current interpretive data was last revised on 2013. POC Device Number [id number] [facility] Blood 11/26/2024 12:4 4 PM CDT 11/26/2024 12:44 PM CDT us Yo Ferreira MD LAB POCT ORDERABLES - DEVICE Final Result GO [facility] [address] [facility] [place] [address] * Surgical pathology (11/26/2024 12:15 PM CDT) Tissue (Small bowel, resection non- tumor) 11/26/2024 12:15 PM CDT Narrative PATHOLOGY [facility] - 12/02/2024 12:11 PM CDT EPIC results best viewed via link to PDF [facility] Carmen Vickers [facility] [place] [address] Note to Patients: This report may contain [...] Gender: F : 1960 (Age: 64) Address: [address] [place] [id number] [facility] #: [id number] Taken:11/26/2024 Received:11/26/2024 Reported: 12/02/2024 Patient Type: BWC EP INPAT Client [facility] Service: Surgery Location: Physician(s): Monserrat Rubio M.D. Diagnosis: Small intestine, ileostomy, takedown - Squamocolumnar mucosa with ostomy site changes [facility]/12/02/2024 10:58 By this signature, I attest that the above diagnosis is based upon my personal examination of the slides(and/or other material indicated in the diagnosis). Matt Jones M.D. Report Electronically Reviewed and Signed Out By Matt Jones M.D. 12/02/2024 12:11:26 Nicolas Mckeon M.D. History: The patient is a 64-year-old woman with ileostomy present. Operative procedure: Closure ileostomy. Specimen(s) Received: A: Loop ileostomy Gross Description: Received in formalin, labeled with the patient's identifiers and loop ileostomy is a 4.6 cm in length by 2.4 cm in diameter unoriented segment of bowel. A central stroma is identified measuring 3.0 x 2.2 cm composed of erythematous mucosa dupree-pink skin. The segment is opened show unremarkable dupree-pink mucosal folds. Labeled A1. Jar 1. cnew/11/29/2024 11:06 PA(s): MARJ Casas By this signature, I attest that the above diagnosis is based upon my personal examination of the slides(and/or other material). Addenda/Procedures Microscopic slide review and interpretation for this case was performed at [facility], Department of Surgical Pathology, [address] [facility] [place], [place] [id number], [place] [address] CLIA # [id number] The performance characteristics of some immunohistochemical stains, fluorescence in-situ hybridization tests and immunophenotyping by flow cytometry cited in this report (if any) were determined by the Surgical Pathology and Flow Cytometry Departments at [facility] as part of an ongoing software quality manager program and in compliance with [...] Surgical Pathology and Flow Cytometry Departments of [facility]. It has not been cleared or approved by the U. S. Food and Drug Administration. IMAGES AND SCANNED DOCUMENTS, IF INCLUDED, ONLY VIEWABLE IN PDF VERSION OF REPORT us Yo Ferreira MD LAB PATHOLOGY ORDERABLES Fin al Result Performing Organization Address City/State/[facility] Co de Phone Number PATHOLOGY [facility] [phone] * MA AN ELECTIVE ENDOTRACHEAL AIRWAY, MA AN PROCEDURE PLACEHOLDER (11/26/2024 11:45 AM CDT) Narrative Ray Lilly CRNA - 11/26/2024 11:45 AM CDT Ray Lilly CRNA 11/26/2024 11:45 AM Airway Patient location: OR Urgency: elective Indications for airway management: anesthesia Difficult airway: no Staff: Placed by: TOLL GATE KEEPER: Ray Lilly CRNA Emergent airway documentation: Risks and benefits discussed: yes Consent obtained: yes Consent given by: patient Airway prep: Preoxygenated: yes Patient position: sniffing Mask difficulty assessment: 1 - vent by mask Sedation level during airway: GA Final airway details: Final airway type: endotracheal airway Tube type: ETT ETT size: 7.0 mm Cuffed: yes Technique used for successful ETT placement: video laryngoscopy Insertion site: oral Blade type: Johnny Video blade type: Ronquillo Blade size: 3 Cormack-Lehane (direct): grade I - full view of glottis Cuff volume: 6 mL Cuff inflated with: air ETT to teeth: 21 cm Placement verified by: auscultation and CO2 detection Airway secured with: silk tape Number of attempts: 1 Mark Kasper MD ANESTHESIA ORDERABLES Final Result * POCT glucose (11/26/2024 8:49 AM CDT) [facility] Signature Glucose, POC 94 70 - 199 mg/dL Comment: Interpretive Data Glucose is assumed to be non-fasting. Fasting Glucose reference ranges are: 0 - 150 years: 70 mg/dL - 99 mg/dL Current interpretive data was last revised on 2013. POC Device Number [id number] GO [facility] Blood 11/26/2024 8:49 AM CDT 11/26/2024 8:49 AM CDT Yo Ferreira MD LAB POCT ORDERABLES - DEVICE Final Result GO [facility] [address] [facility] [place] [address] * FL Water Soluble Enema (11/19/2024 12:00 PM CDT) Anatomical Region Laterality Modality Body N/A Radio Fluoroscop y 11/19/2024 1:05 PM CDT Impressions 11/19/2024 1:05 PM CDT No fluoroscopic evidence of anastomotic leak. Dictated by: Dai Leos MD, PhD The radiology attending physician has personally reviewed this study, and had reviewed and/or edited this written report and agrees with it. Electronically signed by: Lon Arriola M.D. Narrative 11/19/2024 1:05 PM CDT EXAMINATION: WATER SOLUBLE ENEMA HISTORY: 64-year-old with diverting loop ileostomy, for evaluation of anastomosis. TECHNIQUE: After a digital rectal examination was performed, a rubber catheter was inserted into the rectum retrograde instillation of contrast. Water soluble contrast was then instilled into the colon in a retrograde fashion using fluoroscopic guidance. Multiple fluoroscopic and conventional overhead images of the colon were obtained. At the completion of the procedure, a post-evacuation image was obtained. FINDINGS: [employer] radiograph demonstrates normal bowel gas pattern with left lower quadrant ostomy. Retrograde instillation of contrast demonstrated contrast filling from the rectum up to the ostomy. No fluoroscopic evidence of anastomotic leak. Post evacuation images demonstrate residual contrast from the rectum up to the level of the ostomy. Procedure Note Lon Arriola MD - 11/19/2024 EXAMINATION: WATER SOLUBLE ENEMA HISTORY: 64-year-old with diverting loop ileostomy, for evaluation of anastomosis. TECHNIQUE: After a digital rectal examination was performed, a rubber catheter was inserted into the rectum retrograde instillation of contrast. Water soluble contrast was then instilled into the colon in a retrograde fashion using fluoroscopic guidance. Multiple fluoroscopic and conventional overhead images of the colon were obtained. At the completion of the procedure, a post-evacuation image was obtained. FINDINGS: [employer] radiograph demonstrates normal bowel gas pattern with left lower quadrant ostomy. Retrograde instillation of contrast demonstrated contrast filling from the rectum up to the ostomy. No fluoroscopic evidence of anastomotic leak. Post evacuation images demonstrate residual contrast from the rectum up to the level of the ostomy. IMPRESSION: No fluoroscopic evidence of anastomotic leak. Dictated by: Dai Leos MD, PhD The radiology attending physician has personally reviewed this study, and had reviewed and/or edited this written report and agrees with it. Electronically signed by: Lon Arriola M.D. Yo Ferreira MD IMG FLUOROSCOPY PROCEDURES F inal Result * TYPE AND SCREEN 14 DAY (11/19/2024 9:47 AM CDT) ABO Rh O Positive GO [facility] Maira, indirect Negative GO [facility] Blood 11/19/2024 9:47 AM CDT 11/19/2024 10:10 AM CDT Narrative GO [facility] - 11/19/2024 12:44 PM CDT Has the patient had Daratumumab or Isatuximab in the past 6 months?->No Is this test being ordered in advance for a procedure?->Yes Expected date of procedure:->11/26/24 Has the patient been transfused in the past 3 months?->No Has the patient been in the past 3 months?->No Teresa Cleary BLADE WORKER LAB BLOOD BANK TEST ORDERABLE S Final Result Performing Organization Address [facility] Co de Phone Number GO [facility] [address] [employer] [place], [place] [id number] * (ABNORMAL) eGFR (11/19/2024 9:47 AM CDT) eGFR 39(L) >=60 mL/min/1. 73 m2 Comment: Interpretive Data [...] interpretive data was last reviewed 2020. Blood 11/19/2024 9:47 AM CDT 11/19/2024 10:10 AM CDT Yo Ferreira MD LAB BLOOD ORDERABLES Final R esult [facility] [address] [employer]. Department [employer] [place], [place] [id number] * Differential, auto (11/19/2024 9:47 AM CDT) Neutrophil abs 3.14 1.50 - 6.50 K/cumm Imm gran abs 0.01 0.00 - 0.10 K/cumm [facility] Lymphocyte abs 1.35 0.80 - 3.30 K/cumm [facility] Monocyte abs 0.63 0.20 - 0.80 K/cumm [facility] Eosinophil abs 0.16 0.00 - 0.50 K/cumm C[facility] Basophil abs 0.03 0.00 - 0.10 K/cumm C[facility]ER [facility] Neutrophil pct 59.0 % GO [facility] Comment: Interpretive Data Percent cell count reference ranges are not reported, since discordance with absolute values may lead to misinterpretation of CBC data. Current Interpretive Data was last revised on 2017. Imm gran pct 0.2 % [facility] Comment: Interpretive Data Percent cell count reference ranges are not reported, since discordance with absolute values may lead to misinterpretation of CBC data. Current Interpretive Data was last revised on 2017. Lymphocyte pct 25.4 % [facility] Comment: Interpretive Data Percent cell count reference ranges are not reported, since discordance with absolute values may lead to misinterpretation of CBC data. Current Interpretive Data was last revised on 2017. Monocyte pct 11.8 % [facility] Comment: Interpretive Data Percent cell count reference ranges are not reported, since discordance with absolute values may lead to misinterpretation of CBC data. Current Interpretive Data was last revised on 2017. Eosinophil pct 3.0 % [facility] Comment: Interpretive Data Percent cell count reference ranges are not reported, since discordance with absolute values may lead to misinterpretation of CBC data. Current Interpretive Data was last revised on 2017. Basophil pct 0.6 % [facility] Comment: Interpretive Data Percent cell count reference ranges are not reported, since discordance with absolute values may lead to misinterpretation of CBC data. Current Interpretive Data was last revised on 2017. Blood 11/19/2024 9:47 AM CDT 11/19/2024 10:10 AM CDT us Teresa Cleary NP LAB BLOOD ORDERABLES Final Re sult [facility] [address] [facility]. [place] [address] * (ABNORMAL) CBC with auto differential (11/19/2024 9:47 AM CDT) WBC 5.32 3.80 - 9.90 K/cumm Hgb 10.7(L) 11.9 - 15.5 g/dL [facility] Hct 32.7(L) 35.6 - 45.5 % [facility] Plt 149(L) 150 - 400 K/cumm [facility] MPV 9.3 9.1 - 12.3 fL [facility] RBC 3.57(L) 3.90 - 5.20 M/cumm [facility] MCV 91.6 81.3 - 96.4 fL [facility] MCH 30.0 27.1 - 33.3 pg [facility] MCHC 32.7 32.3 - 35.7 g/dL [facility] RDW CV 13.7 11.1 - 14.9 % [facility] RDW SD 45.8 35.7 - 48.1 fL [facility] NRBC abs 0.00 0.00 - 0.01 K/cumm [facility] Blood 11/19/2024 9:47 AM CDT 11/19/2024 10:10 AM CDT Teresa Cleary NP LAB BLOOD ORDERABLES Final Re sult [facility] [address] [facility]. Department [place] [address] * Protime-INR (11/19/2024 9:47 AM CDT) Pathologist [facility] PT 11.2 10.2 - 13.5 sec INR 0.99 0.90 - 1.20 [facility] Comment: Interpretive data Oral anticoagulant therapeutic ranges: Venous thromboembolism prophylaxis or treatment: 2.0-3.0 CARDIOLOGY Standard range: 2.0-3.0 High-intensity range: 2.5-3.5 Refer to indication-specific guidelines for appropriate target ranges for prosthetic heart valve replacement. Current interpretive data was last revised on 2019. Blood 11/19/2024 9:47 AM CDT 11/19/2024 10:10 AM CDT Teresa Cleary NP LAB BLOOD ORDERABLES Final Re sult GO [facility] [address] [facility]. Department [place] [address] * (ABNORMAL) Basic metabolic panel (11/19/2024 9:47 AM CDT) Pathologist [facility] Sodium 139 135 - 145 mmol/L Potassium, pl 4.9 3.3 - 4.9 mmol/L [facility] Chloride 105 97 - 110 mmol/L [facility] CO2 23 22 - 32 mmol/L [facility] Anion gap 11 2 - 15 mmol/L [facility] BUN 32(H) 6 - 25 mg/dL [facility] Creatinine 1.48(H) 0.60 - 1.10 mg/dL [facility] Glucose 63(L) 70 - 199 mg/dL [facility] Comment: Interpretive Data Fasting glucose >/= 126 [...] interpretive data was last revised 2022. Calcium 9.6 8.5 - 10.3 mg/dL [facility] Blood 11/19/2024 9:47 AM CDT 11/19/2024 10:10 AM CDT Narrative GO [facility]ERT[facility]se[facility] - 11/19/2024 10:39 AM CDT This order is is required for all post operative patients receiving lovenox. Yo Ferreira MD LAB BLOOD ORDERABLES Final R esult Performing Organization Address City/[facility] Co de Phone Number GO [facility] [address] [facility] Department [place] [address] * ECG 12 lead (11/19/2024 9:04 AM CDT) 11/19/2024 9:04 AM CDT Narrative [facility] - 11/19/2024 4:15 PM CDT Vent Rate: 80 bpm RR Interval: 742 msec MA Interval: 143 msec QRS Duration: 88 msec QT Interval: 344 msec QTC Interval: 380 msec P-R-T [place]: 79 - -6 - 7 degrees IMPRESSION: SINUS RHYTHM NORMAL ECG Electronically Signed By: Isreal Bagley MD us Teresa Cleary NP ECG ORDERABLES Final Result Performing Organization Address [facility] de Phone Number [facility] * Colonoscopy (07/15/2024 10:39 AM CDT) Anatomical Region Laterality Modality Other Narrative Procedure Note Yo Ferreira MD - 07/15/2024 10:39 AM CDT [facility] Patient Name: Farhana Russo Procedure Date: 07/15/2024 10:39 AM Date of : 1960 Admit Type: Outpatient Age: 64 Gender: Female Attending MD: Yo Ferreira M.D. Room: [facility] ENDOSCOPY ROOM 02 Note Status: Finalized [...] The scope was passed under direct vision.The [id number] Endoscsope was introduced through the descending colostomy and advanced to the the cecum, identified by appendiceal orifice andileocecal valve. The colonoscopy was performed with ease. The patient tolerated the procedure well. The qualityof the bowel preparation was excellent. The quality of the bowel preparation was evaluated using the BBPS ([place] Bowel Preparation Scale) with scores of:Right Colon [...] On: 07/15/2024 10:39 AM Recognized by the [place] [employer] for promoting quality [...] on 2017. Triglycerides 75 <=149 mg/dL [facility] Comment: Interpretive Data Ages < or [...] on 2017. LDL, calculated 28 <=129 mg/dL [facility] Comment: Interpretive Data Ages < or [...] 3. Paul M et al. VAL Cardiol. 2019June 17;5(5):540-548. doi: 10.1001/jamacardio.2020.0013 Current Interpretive Data was last revised on 2023. Non-HDL Cholesterol 44 mg/dL [facility] Comment: Interpretive Data Ages < or [...] revised on 2017. Chol/HDL ratio 3 [facility] Blood 12/04/2023 5:24 PM CDT 12/04/2023 5:34 PM CDT Narrative [facility] - 12/04/2023 7:03 PM CDT This lipid panel was automatically ordered due to a significant change in Troponin. The dietary status of the patient at the collection time should be correlated with the lipid results. Álvaro Radford MD LAB BLOOD ORDERABLES Final Result Performing Organization Address [facility] de Phone Number [facility] [place] [address] * (ABNORMAL) Hemoglobin A1c (11/04/2023 7:56 AM CDT) Pathologist [facility] Hgb A1C 5.7(H) 4.0 - 5.6 % Estimated Average Glucose 117 mg/dL [facility] Comment: The ADA recommends reporting an [...] inal Result Performing Organization Address [facility] de Phone Number [facility] [place] [address] * Hepatitis C antibody Blood (10/27/2023 9:30 [...] last revised on 2019. Testing performed by: [facility], [facility], [place]., [address] Blood 10/27/2023 9:30 AM CDT 10/27/2023 12:43 PM CDT Gildardo Jung MD LAB MICROBIOLOGY - GENERAL OR DERABLES Edited Result - Final Performing Organization Address City/State/ZIP Co il Phone Number GO [facility] [address] [facility]. [place] [address] from Last 3 Months or Most Recently Relevant to Health Maintenance Insurance MEDICARE [facility] [place] [address] MEDICARE [facility] Advance Directives For more information, please contact: [phone] * Full Code (Latest Code Status on File) Date Activated Date Inactivated Comments 11/26/2024 1:58 PM 11/28/2024 5:08 PM * Full Code Date Activated Date Inactivated Comments 07/16/2024 11:46 AM 07/20/2024 3:44 PM * Full Code Date Activated Date Inactivated Comments 07/15/2024 9:06 AM 07/15/2024 3:39 PM * Full Code Date Activated Date Inactivated Comments 11/25/2023 7:02 PM 12/30/2023 10:03 PM * Full Code Date Activated Date Inactivated Comments 11/13/2023 12:01 PM 11/13/2023 6:29 PM Care Teams Intermediate Designer Relationship Specialty Start Date End Date Kaushal Heath MD [address] [place] [address] PCP - General Internal Medicine 10/30/23 Bigg Delarosa MD [address] [facility] [address] [place] [address] Referring Physician Gastroenterology 10/15/23 Jefe Choe MD [address] [facility] [address] [facility] [address] [place] [address] Referring Physician Gastroenterology 10/15/23
--- OUTSIDE RECORDS SUMMARY | 2025-02-09 08:09 | XMS_ITS | Encounter Summary ---
Author Organization [facility] Address [address] [place] [address] Phone Care Team Providers Care Aerial Sprayer Name Role Phone Bigg Delarosa MD Unavailable [phone] Jefe Choe MD Unavailable + Melissa Rhodes MD Unavailable [phone] Kaushal Heath MD Primary Care Provider + [phone] Encounter Details Date Type Department Care Team (Late st Contact Info) Description 06/16/2024 Orders Only [facility] Scanning, Provider Social History Tobacco Use Types Packs/Day Years Used Date Smoking Tobacco: Never Passive Smoke Exposure: Never Smokeless Tobacco: Never C Utilities Answer Date Recorded In the past 12 months has [place], gas, oil, or water [employer] threatened to shut off services in your [...] often do you attend chur ch or holiness services? 1 to 4 times per year 11/29/2023 Do you belong to any clubs o r organizations such as taoism groups, unions, fraternal or athletic groups, or [...] living in a detention (including now)? No 11/29/2023 Personal Safety Answer [...] documented as of this encounter Care Teams Aerial Sprayer Relationship Specialty Start Date End Date Kaushal Heath MD [address] [place] [address] PCP - General Internal Medicine 10/30/23 Bigg Delarosa MD [address] [address] Referring Physician Gastroenterology 10/15/23 Jefe Choe MD [address] [address] [place] [address] Referring Physician Gastroenterology 10/15/23 Melissa Rhodes MD [address] [facility] GYNECOLOGIC ONCOLOGY, [address] [address] Consulting Physician Gynecologic Oncology 10/30/23 807/11 documented as of this encounter
--- OUTSIDE RECORDS SUMMARY | 2025-02-09 08:09 | XMS_ITS ---
Author Organization [facility] Address [address] [place] [address] Care Team Providers Care Admission Liaison Name Role Phone Bigg Delarosa MD Unavailable [phone] Jefe Choe MD Unavailable + Kaushal Heath MD Primary Care Provider [phone] Active Problems Problem Noted Date Diagnosed Date Pulmonary nodule 11/26/2023 Assessment & Plan (12/26/2023 11:38 AM MEAT CARRIER): Patient is a 63 y.o. female with [...] Hypertension 10/20/2023 Type II diabetes mellitus 10/20/2023 Current Treatment and Therapy Plans No current plan information found. Past Treatment and Therapy Plans No past plan information found. Lifetime Dose Tracking * Chemical Lifetime Dose Automatic Entry Manual Entr y Fluoro Time 0.662 minutes 0.662 minutes 0 minutes Air kerma at the reference point (Ka,r) 30.384 mGy 3 0.384 mGy 0 mGy DLP 6,104 mGycm 6,104 mGycm 0 mGycm Resolved Problems Problem Noted Date Diagnosed Date Resolved Date Status post gastrointestinal surgery 01/04/2025 01/26/[address] 11/26/2024 Ileostomy present 07/19/2024 01/26/2025 Pyelonephritis 07/19/2024 01/26/2025 Ureteral stent present 07/19/202401/26 Staghorn calculus 07/16/2024 01/26/2025 Diverticulitis 05/10/2024 01/26/[address] 01/13/2024 Fever 12/09/2023 01/26/2025 Ulcerative pancolitis with complication 12/05/2023 01/26/2025 Assessment & Plan (12/26/2023 11:47 AM MEAT CARRIER): Patient is a 63 y.o. female with [...] mixed micro Patient went to the OR 11/6 with CHINESE LANGUAGE PROFESSOR, CRS and urology for ex lap, left colectomy with end colostomy, LIBRA, BSO and ureteral stent placement. Surgery reporting source control archived. Given source control has been achieved, we are planning on 5 days of antibiotics from surgery. On assessment today, patient reports minimal use of her ESTHETICS INSTRUCTOR and that she typically has abdominal discomfort [...] 01/26/2025 Assessment & Plan (12/25/2023 12:55 PM MEAT CARRIER): Near resolution of hepatic and splenic abscesses. No plans for repeat imaging given improvement. Continue antibiotics as described elsewhere. Hepatic abscess 11/26/2023 01/26/2025 Assessment & Plan (12/25/2023 12:55 PM MEAT CARRIER): Near resolution of hepatic and splenic abscesses. No plans for repeat imaging given improvement. Continue antibiotics as described elsewhere. Physical deconditioning 11/25/202301/17 Expressive aphasia 11/04/2023 History of chronic ulcerative colitis 10/27/2023 01/26/2025 Diverticulitis of intestine 10/20/2023 01/26/2025 Moderate protein-calorie malnutrition 10/03/2023 11/25/2023 Abdominal pain 10/02/2023 10/20/2023
--- OUTSIDE RECORDS SUMMARY | 2025-02-09 08:09 | XMS_ITS | Patient Health Record ---
Author Organization [facility] Address [address] [place], [place] [id number] Care Team Providers Care Dump Operator Name Role Phone JENNYFER KELLY Unavailable [phone] Kylie Ghosh Unavailable Unavailable Reason For Referral No Information Social History Social History Additional Details Category Social Info Options Details Migrated Social History Migrated Social History History of tobacco use : , Smoking Status : Never used tobacco Plan Of Treatment No Information Insurance Providers Payer Name Payer Address Payer Phone Subscriber Number Group Number Insured Name Patient Relationship to Insured Coverage Start Date Coverage End Date SRINIVASR Ludmila / ANURADHA [address] [id number] DARIUS GARCIAS Self - patient is the insured
[2025-02-09 09:08] LABS: Anion Gap 11 mmol/L (4-12); Blood Urea Nitrogen 31 mg/dL (7-17); Calcium 9.8 mg/dL (8.4-10.2); Carbon Dioxide 26 mmol/L (22-30); Chloride 103 mmol/L (98-107); Estimated Glomerular Filt Rate 36; Glucose 114 mg/dL (65-110); Osmolality Calculated 297 mOsm/kg (285-295); Potassium 4.4 mmol/L (3.4-5.0); Sodium 140 mmol/L (137-145)
== END 2025-02-09 08:05 | disposition home or self-care (01) ==
LOC: CHSLAB 08:07
PROVIDERS: PCP Internal Medicine; Visit Provider Internal Medicine
DX: E86.0 Dehydration (principal)
CPT/HCPCS: 36415; 80048